=== PATIENT | female | born 1935 | race Caucasian/White ===

== ENCOUNTER → 2016-07-21 | Outpatient (CLI) | payer MEDICARE ==
--- NOTE | 2016-07-21 11:03 | CT ---
EXAMINATION TYPE: CT brain wo con DATE OF EXAM: 07/21/2016 10:55 AM COMPARISON: Previous study dated 09/28/2014 HISTORY: Lt side weakness and frequent falls CT DLP: 981.7 mGycm Automated exposure control for dose reduction was used. FINDINGS: There are generalized changes of sulcal prominence and ventriculomegaly, compatible with mild atrophi c change. There is some physiologic calcification of basal ganglia. There is diffuse periventricular white matter lucency, compatible with chronic white matter ischemic change. There is no acute focal l esion, mass effect or midline shift identified. I do not see evidence of intracranial blood. 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 Visualized portions of the paranasal sinuses and mastoids are clear. IMPRESSION: 1. NO ACUTE INTRACRANIAL ABNORMALITY. 2. MILD ATROPHIC CHANGE. 3. CHRONIC WHITE MATTER ISCHEMIC CHANGE. 4. 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
== END | disposition home or self-care (01) ==
LOC: RADCTMAIN 10:18
PROVIDERS: ATTEND Family Medicine
DX: D16.4 Benign neoplasm of bones of skull and face (principal); I67.82 Cerebral ischemia; G31.9 Degenerative disease of nervous system, unspecified
CPT/HCPCS: 70450

== ENCOUNTER 2016-08-10 06:34 | Day surgery (SDC) | payer MEDICARE ==
[2016-08-08 14:22] VITALS: BMI 41.1
[~2016-08-10 06:34] MED LIST: LACTATED RINGERS 1,000 ML IV SCH
[2016-08-10 07:17] VITALS: RESP 18; TEMP 98.5
[2016-08-10 07:19] LABS: Glucose,Whole Blood 154 mg/dL (75-99)
[2016-08-10] MEDS ORDERED: MIDAZOLAM 2 MG/2 ML VIAL ONE (07:21)
[2016-08-10] MEDS ORDERED: fentaNYL (PF) 50 MCG/ML 2 ML AMP ONE (07:21)
[2016-08-10] MEDS ORDERED: BUPIVACAINE (PF) 0.5% 30 ML VIAL ONE (07:21)
--- NOTE | 2016-08-10 08:02 | P.PCN ---
Date of Procedure: 08/10/16 Procedure(s) Performed: PREOPERATIVE DIAGNOSIS: Cervical Spondylosis with Facet Arthropathy.without myelopathy. 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 Cervical degenerative disc disease POSTOPERATIVE DIAGNOSIS: Same as preoperative diagnoses PROCEDURES: Diagnostic bilateral medial branch blocks at C2 and C3 levels with fluoroscopic guidance ANESTHESIA: Local with 1% lidocaine 4 ml ; IV sedation with Versed.1 mg and fentanyl 100 g EBL: Minimal PROCEDURE INDICATION: The patient with neck pain secondary to cervical arthropathy unresponsive to more conservative treatments. PROCEDURE DESCRIPTION / TECHNIQUE: The patient was seen and identified in the preoperative area. Risks, benefits, complications, and alternatives were discussed with the patient, the patient agreed to proceed with the procedure and signed the consent. IV was started. Vital signs remained stable throughout the procedure. Patient was taken to the OR and time out was completed. The patient was placed in the prone position on the procedure table. A pillow was placed under the patients chest to increase the cervical interlaminar space. The cervical area was prepped and draped in the usual sterile fashion. Critical pause was taken. Vital signs were closely monitored during the procedure. Conscious sedation was used during the procedure to decrease patients anxiety. Using cross-table lateral fluoroscopy, the centroid of the trapezoid of right C2 and C3 was identified, marked, and localized with 1% lidocaine 1 ml at each level for skin and Sub Q infiltrations . Subsequently, a 22 G 2 spinal needle was advanced guided by fluoroscopy to the centroid of the trapezoid of Right C2 , C3, . Ignacio tip position was confirmed at the centroid of the trapezoids of Right C2 and C3 with anteroposterior fluoroscopy. Subsequently, 1 ml of preservative-free Bupivacaine 0.5% mixed with Dexamethasone 5 mg and half ml of the mixture was injected after negative aspiration for blood and CSF. Ignacio was then removed intact the same procedure was repeated at the left C2 and C3 levels. COMPLICATIONS: No acute complications. COMMENTS: DISPOSITION / PLANS: The patient was placed in a supine position and transferred to the recovery area in a stable condition for observation and was discharged from the recovery room after meeting discharge criteria. Home discharge instructions given to the patient by the staff. The patient was reexamined prior to discharge. The patient will schedule a follow up in the clinic in 2-4 weeks.
[2016-08-10] MEDS ORDERED: IV FLUID CONTINUATION 1,000 ML IV ONE (08:09)
[2016-08-10 08:25] VITALS: BP 154/78; PULSE 91
[2016-08-10 08:30] LABS: Glucose,Whole Blood 155 mg/dL (75-99)
--- NOTE | 2016-08-10 08:56 | FL ---
EXAMINATION TYPE: FL guided pain mgmt statistic DATE OF EXAM: 08/10/2016 8:04 AM HISTORY: Flouroscopy time 38 seconds of fluoroscopy provided. IMPRESSION: 1. Fluoroscopy time.
== END 2016-08-10 08:52 | disposition home or self-care (01) ==
LOC: ORPAIN 06:34
PROVIDERS: ATTEND Specialist
DX: M47.812 Spondylosis without myelopathy or radiculopathy, cervical region (principal); M46.92 Unspecified inflammatory spondylopathy, cervical region; M96.1 Postlaminectomy syndrome, not elsewhere classified; M50.30 Other cervical disc degeneration, unspecified cervical region; Z88.0 Allergy status to penicillin
CPT/HCPCS: 64490; 64491; 99152; J2250; J3010

== ENCOUNTER 2016-09-19 09:27 | Day surgery (SDC) | payer MEDICARE ==
[2016-09-18 09:04] VITALS: BMI 42.5
[2016-09-19 09:52] VITALS: RESP 16; TEMP 98.3
[2016-09-19] MEDS ORDERED: LIDOCAINE 1% 20 ML VIAL (10MG/ML) FOR IV START INTRADERMA ONE (10:11)
[2016-09-19 10:17] LABS: Glucose,Whole Blood 159 mg/dL (75-99)
[2016-09-19] MEDS ORDERED: BUPIVACAINE (PF) 0.5% 30 ML VIAL ONE (10:40)
[2016-09-19] MEDS ORDERED: MIDAZOLAM 2 MG/2 ML VIAL ONE (10:40)
[2016-09-19] MEDS ORDERED: fentaNYL (PF) 50 MCG/ML 2 ML AMP ONE (10:40)
--- NOTE | 2016-09-19 11:26 | P.PCN ---
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 3-failed back surgery syndrome and cervical area POSTOPERATIVE DIAGNOSIS: Same as preoperative diagnoses. PROCEDURES: Diagnostic bilateral C2 , C3 medial branch blocks, with fluoroscopic guidance # 2nd ANESTHESIA: Local with 1% lidocaine 4 ml ; IV sedation with Versed 1 mg and fentanyl 50 g. EBL: Minimal PROCEDURE INDICATION: The patient with neck pain secondary to cervical arthropathy unresponsive to more conservative treatments. PROCEDURE DESCRIPTION / TECHNIQUE: The patient was seen and identified in the preoperative area. Risks, benefits, complications, and alternatives were discussed with the patient, the patient agreed to proceed with the procedure and signed the consent. IV was started. Vital signs remained stable throughout the procedure. Patient was taken to the OR and time out was completed. The patient was placed in the prone position on the procedure table. A pillow was placed under the patients chest to increase the cervical interlaminar space. The cervical area was prepped and draped in the usual sterile fashion. Critical pause was taken. Vital signs were closely monitored during the procedure. Conscious sedation was used during the procedure to decrease patients anxiety. Using cross-table lateral fluoroscopy, the centroid of the trapezoid of right C2 ,C3 was identified, marked, and localized with 1% lidocaine 1 ml at each level for skin and Sub Q infiltrations . Subsequently, a 22 G 2 spinal needle was advanced guided by fluoroscopy to the centroid of the trapezoid of Right C2, C3. Bradshaw tip position was confirmed at the centroid of the trapezoids of Right C2 , C3 with anteroposterior fluoroscopy. Subsequently, 1 ml of preservative-free Bupivacaine 0.5% mixed with Dexamethasone 10 mg and half ml of the mixture was injected after negative aspiration for blood and CSF. Bradshaw was then removed intact the same procedure was repeated at the left C2 , C3 levels. COMPLICATIONS: No acute complications. COMMENTS: DISPOSITION / PLANS: The patient was placed in a supine position and transferred to the recovery area in a stable condition for observation and was discharged from the recovery room after meeting discharge criteria. Home discharge instructions given to the patient by the staff. The patient was reexamined prior to discharge. The patient will schedule a follow up in the clinic in 2-4 weeks.
--- NOTE | 2016-09-19 11:34 | FL ---
EXAMINATION TYPE: FL guided pain mgmt statistic DATE OF EXAM: 09/19/2016 11:29 AM HISTORY: Flouroscopy time 34 seconds of fluoroscopy provided. IMPRESSION: 1. Fluoroscopy time.
[2016-09-19 11:56] VITALS: BP 144/79; PULSE 89
[2016-09-19] MEDS ORDERED: IV FLUID CONTINUATION 1,000 ML IV ONE (11:59)
[2016-09-19 12:10] LABS: Glucose,Whole Blood 133 mg/dL (75-99)
== END 2016-09-19 12:14 | disposition home or self-care (01) ==
LOC: ORPAIN 09:27
PROVIDERS: ATTEND Specialist
DX: M47.812 Spondylosis without myelopathy or radiculopathy, cervical region (principal); M46.92 Unspecified inflammatory spondylopathy, cervical region; M50.30 Other cervical disc degeneration, unspecified cervical region; M96.1 Postlaminectomy syndrome, not elsewhere classified; Z88.0 Allergy status to penicillin
CPT/HCPCS: 64490; 64491; 99152; J2250; J3010

== ENCOUNTER 2016-10-26 07:17 | Day surgery (SDC) | payer MEDICARE ==
[2016-10-24 12:02] VITALS: BMI 42.8
[2016-10-26 08:02] VITALS: RESP 18; TEMP 97.9
[2016-10-26 08:20] LABS: Glucose,Whole Blood 166 mg/dL (75-99)
[2016-10-26] MEDS ORDERED: BUPIVACAINE (PF) 0.5% 30 ML VIAL ONE (08:58)
[2016-10-26] MEDS ORDERED: fentaNYL (PF) 50 MCG/ML 2 ML AMP ONE (08:58)
[2016-10-26] MEDS ORDERED: MIDAZOLAM 2 MG/2 ML VIAL ONE (08:58)
[2016-10-26] MEDS ORDERED: TRIAMCINOLONE ACETONIDE 40 MG/ML 1 ML VIAL ONE (08:58)
[2016-10-26] MEDS ORDERED: LIDOCAINE 1% 20 ML VIAL (10MG/ML) FOR IV START INTRADERMA ONE (08:58)
--- NOTE | 2016-10-26 09:42 | P.PCN ---
Date of Procedure: 10/26/16 Procedure(s) Performed: PREOPERATIVE DIAGNOSIS:1- Cervical spondylosis with Facet Arthropathy without myelopathy. 2-postlaminectomy pain syndrome cervical area. 3-cervical degenerative disc disease POSTOPERATIVE DIAGNOSIS: Same as preoperative diagnoses PROCEDURES: Radiofrequency thermocoagulation, Left C2 , and C3 medial branch with Fluroscopy Guidence ( two levels ) ANESTHESIA: Local with 1% lidocaine 2 ml ; IV sedation with fentanyl 100 mcg and Versed 2 mg . EBL: Minimal PROCEDURE INDICATION: The patient with neck pain secondary to cervical arthropathy who had more than 50% relief of her pain with previous diagnostic cervical medial branch block. PROCEDURE DESCRIPTION / TECHNIQUE: The patient was seen and identified in the preoperative area. Risks, benefits, complications, and alternatives were discussed with the patient, the patient agreed to proceed with the procedure and signed the consent. IV was started. Vital signs remained stable throughout the procedure. Patient was taken to the OR and time out was completed. The patient was placed in the prone position on the procedure table. A pillow was placed under the patients chest to increase the cervical interlaminar space. The cervical area was prepped and draped in the usual sterile fashion. Critical pause was taken. Vital signs were closely monitored during the procedure. Conscious sedation was used during the procedure to decrease patients anxiety. Using cross-table lateral fluoroscopy, the centroid of the trapezoid of Left C2 ,C3, were identified, marked, and localized with 1% lidocaine. Subsequently, a 20 [id number] radiofrequency cannula with a 10-mm active tip was advanced guided by fluoroscopy to the centroid of the trapezoid of Left C2 ,C3,. Needle tip position was confirmed at the centroid of the trapezoids of Left C2 C3, with anteroposterior fluoroscopy. Each site then underwent sensory testing at 50 Hz and 0 to 1 volt and motor testing at 2 Hz and 0 to 3 volt with local stimulation, but no radicular symptoms down the arm. Thereafter Left C2 ,C3 sites underwent radiofrequency thermocoagulation at 80 degrees celsius for 90 seconds after injecting 0.5 ml of PF lidocaine 1%. After thermocoagulation, 1 ml of the block solution containing Kenalog 40 mg and 5 mL of preservative-free normal saline was injected at the Left C2 ,andC3 levels after negative aspiration of CSF and blood and with no paresthesias. Cannulas were retracted while injecting lidocaine 1% until the needle is out. Skin was cleansed and bandages were applied. COMPLICATIONS: No acute complications. COMMENTS: DISPOSITION / PLANS: The patient was placed in a supine position and transferred to the recovery area in a stable condition for observation and was discharged from the recovery room after meeting discharge criteria. Home discharge instructions given to the patient by the staff. The patient was reexamined prior to discharge. The patient will schedule a follow up in the clinic in 2-4 weeks.
[2016-10-26] MEDS ORDERED: IV FLUID CONTINUATION 1,000 ML IV ONE (09:44)
[2016-10-26 10:00] VITALS: BP 120/68; PULSE 68
--- NOTE | 2016-10-26 10:15 | FL ---
EXAMINATION TYPE: FL guided pain mgmt statistic DATE OF EXAM: 10/26/2016 9:36 AM HISTORY: Flouroscopy time 29 seconds of fluoroscopy provided. IMPRESSION: 1. Fluoroscopy time.
== END 2016-10-26 10:17 | disposition home or self-care (01) ==
LOC: ORPAIN 07:17
PROVIDERS: ATTEND Specialist
DX: M47.812 Spondylosis without myelopathy or radiculopathy, cervical region (principal); M46.92 Unspecified inflammatory spondylopathy, cervical region; M96.1 Postlaminectomy syndrome, not elsewhere classified; M50.30 Other cervical disc degeneration, unspecified cervical region; Z88.0 Allergy status to penicillin
CPT/HCPCS: 99152; 64633; 64634; J2250; J3301; J3010

== ENCOUNTER 2016-12-05 07:35 | Day surgery (SDC) | payer MEDICARE ==
[2016-11-29 15:23] VITALS: BMI 41.6
[2016-12-05 08:13] VITALS: RESP 16; TEMP 96.4
[2016-12-05] MEDS ORDERED: LIDOCAINE 1% 20 ML VIAL (10MG/ML) FOR IV START INTRADERMA ONE (08:14)
[2016-12-05 08:15] LABS: Glucose,Whole Blood 124 mg/dL (75-99)
[2016-12-05] MEDS ORDERED: MIDAZOLAM 2 MG/2 ML VIAL ONE (08:41)
[2016-12-05] MEDS ORDERED: fentaNYL (PF) 50 MCG/ML 2 ML AMP ONE (08:41)
[2016-12-05] MEDS ORDERED: DEXAMETHASONE SOD PHOS (MDV) 100 MG/10 ML VIAL ONE (08:41)
[2016-12-05] MEDS ORDERED: BUPIVACAINE (PF) 0.5% 30 ML VIAL ONE (08:41)
--- NOTE | 2016-12-05 09:17 | P.PCN ---
Date of Procedure: 12/05/16 Preoperative Diagnosis: Postoperative Diagnosis: Procedure(s) Performed: PREOPERATIVE DIAGNOSIS: 1-Cervical spondylosis with Facet Arthropathy without myelopathy. 2-cervical degenerative disc disease POSTOPERATIVE DIAGNOSIS :1-: Cervical spondylosis with Facet Arthropathy without myelopathy. 2-cervical degenerative disc disease PROCEDURES: Radiofrequency thermocoagulation, Right C 2 , C3, medial branch with Fluroscopy Guidence ( Two Levels ) ANESTHESIA: Local with 1% lidocaine 4 ml ; IV sedation with fentanyl 50 mcg and Versed. 1mg . EBL: Minimal PROCEDURE INDICATION: The patient with neck pain secondary to cervical arthropathy who had more than 50% relief of her pain with previous diagnostic cervical medial branch block. PROCEDURE DESCRIPTION / TECHNIQUE: The patient was seen and identified in the preoperative area. Risks, benefits, complications, and alternatives were discussed with the patient, the patient agreed to proceed with the procedure and signed the consent. IV was started. Vital signs remained stable throughout the procedure. Patient was taken to the OR and time out was completed. The patient was placed in the prone position on the procedure table. A pillow was placed under the patients chest to increase the cervical interlaminar space. The cervical area was prepped and draped in the usual sterile fashion. Critical pause was taken. Vital signs were closely monitored during the procedure. Conscious sedation was used during the procedure to decrease patients anxiety. Using cross-table lateral fluoroscopy, the centroid of the trapezoid of right C2 ,C3 were identified, marked, and localized with 1% lidocaine. Subsequently, a 20 [id number] radiofrequency cannula with a 10-mm active tip was advanced guided by fluoroscopy to the centroid of the trapezoid of Right C2 ,C3, . Needle tip position was confirmed at the centroid of the trapezoids of Right C2 ,C3, with anteroposterior fluoroscopy. Each site then underwent sensory testing at 50 Hz and 0 to 1 volt and motor testing at 2 Hz and 0 to 3 volt with local stimulation, but no radicular symptoms down the arm. Thereafter the right C2 , C3 sites underwent radiofrequency thermocoagulation at 80 degrees celsius for 90 seconds after injecting 0.5 ml of PF lidocaine 1%. After thermocoagulation, 1 ml of the block solution containing Dexamethasone 10 mg and 2 mL of preservative-free 0.5 % marcaine was injected at the Right C2 ,C3, levels after negative aspiration of CSF and blood and with no paresthesias. Cannulas were retracted while injecting lidocaine 1% until the needle is out. Skin was cleansed and bandages were applied. COMPLICATIONS: No acute complications. COMMENTS: DISPOSITION / PLANS: The patient was placed in a supine position and transferred to the recovery area in a stable condition for observation and was discharged from the recovery room after meeting discharge criteria. Home discharge instructions given to the patient by the staff. The patient was reexamined prior to discharge. The patient will schedule a follow up in the clinic in 2-4 weeks. Implants: Indications for Procedure: Operative Findings: Description of Procedure:
--- NOTE | 2016-12-05 09:29 | FL ---
Fluoroscopy HISTORY: Pain 9 seconds fluoroscopy time supplied to the referring clinician. 2 intraoperative C-arm images docume nt the procedure. See dictated report from anesthesia.
[2016-12-05 09:47] VITALS: BP 150/85; PULSE 70
[2016-12-05] MEDS ORDERED: IV FLUID CONTINUATION 1,000 ML IV ONE (09:48)
== END 2016-12-05 09:58 | disposition home or self-care (01) ==
LOC: ORPAIN 07:35
PROVIDERS: ATTEND Specialist
DX: M50.31 Other cervical disc degeneration, high cervical region (principal); M47.812 Spondylosis without myelopathy or radiculopathy, cervical region; M46.92 Unspecified inflammatory spondylopathy, cervical region; Z88.0 Allergy status to penicillin
CPT/HCPCS: 64633; 64634; 99152; 99153; J2250; J3010; J1100

== ENCOUNTER → 2017-01-09 | Outpatient (CLI) | payer MEDICARE ==
[2017-01-09 14:02] VITALS: BP 142/59; PULSE 73; RESP 20; TEMP 98.7
--- NOTE | 2017-01-09 14:23 | P.PN ---
Progress Note - Text Patient returns for followup for chronic neck and back pain with radiation to shoulders, hips, and legs. Patient recently underwent bilateral C2 + C3 RFA, which has provided almost complete relief of her neck pain since procedure performed. Patient continues on [place] medications for pain from PCP with good relief. Patient denies adverse drug effects from medications. Today, pt denies new-onset weakness, bowel/bladder incontinence, or any other signs or symptoms of cauda equina syndrome. There are no signs of acute intoxication, and no indications of medication diversion or overuse. In addition to above, 13-point review of systems is also negative for chest pain , shortness of breath, changes in vision, changes in hearing, new onset weakness , abdominal pain, diarrhea, extreme fatigue, malaise, fever, skin changes, homicidal or suicidal ideation, or bowel or bladder incontinence. 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 There is a broad-based circumferential disc bulge at the L3-L4 level extending laterally encroaching on the right neural foramen. At the L2-L3 level there is facet arthropathy with hypertrophy of the ligamentum flavum and causing posterior lateral mass effect on the thecal sac. There is facet arthropathy at the L1-L2 level and also at the L5-S1 level. Assessment: 1. lumbar PLPS 2. cervical spondylosis without myelopathy 3. SI joint dysfunction Plan: 1. Explanation: Opioid and psychological risk scores were reviewed. Diagnoses , prognoses, and multiple treatment options including but not limited to physical therapy, interventional therapies, adjuvant medical therapies, narcotic medication therapies, and surgery were discussed with the patient and all questions were answered to the patient's satisfaction. 2. Opioid agreement: no opioids prescribed today 3. Counseling: The patient was counseled extensively on SMOKING CESSATION, BODY MASS INDEX, EXERCISE. Specifically, the patient was instructed regarding the importance of smoking cessation, weight control, and exercise in the context of both chronic pain and overall health. 4. Procedures: bilateral lumbar MBB (consider higher levels such as L1-L2, L2- L3, L3-L4 bilateral) 5. Consultations: None 6. Investigations: None 7. Medications: none prescribed 8. Disposition: f/u for PQRS measures: 1-Patient's medications are documented in the chart. 2-Tobacco use is negative 3-Patient has not had a pneumococcal vaccine. 4-Advanced care planning discussed, patient unable to give. 5-Opioid contract NOT signed with the patient. 6-Pain positive, follow-up visit or procedure scheduled 7-Patient's blood pressure measured and documented, and patient will follow up with the primary care due to hypertension. 8-Patient's weight was measured, and body mass index ABOVE the normal limits, and counseling was done. Patient instructed to follow up with PCP. 9-Patient WAS NOT identified as an unhealthy alcohol user.
== END | disposition home or self-care (01) ==
LOC: PNWHC3 13:41
PROVIDERS: ATTEND Anesthesiology
DX: M47.812 Spondylosis without myelopathy or radiculopathy, cervical region (principal); G97.1 Other reaction to spinal and lumbar puncture; M53.3 Sacrococcygeal disorders, not elsewhere classified
CPT/HCPCS: 99211

== ENCOUNTER 2017-02-04 15:20 | Inpatient (IN) | payer MEDICARE ==
[2017-02-04] MEDS ORDERED: ACETAMINOPHEN TAB 500 MG TAB PO STA (15:40)
--- NOTE | 2017-02-04 15:44 | ED ---
General Adult HPI - General Chief complaint: Weakness Stated complaint: Weakness Time Seen by Provider: 02/04/17 15:33 Source: patient, family, EMS, RN notes reviewed Mode of arrival: EMS Limitations: altered mental status - History of Present Illness Initial comments: Patient is a pleasant 81-year-old female presenting with family for weakness. Onset was today. Patient was too weak to get up out of bed. Patient is unable to stand on her own. Patient is unable to walk. Patient did have 2 falls without injury. Patient does complain of chills. Daughter states patient seems slightly off today. Daughter also states patient did have a recent questionable urinary tract infection however did not receive treatment for this. No abdominal pain. Minimal cough. No chest pain. - Related Data Home Medications Medication Instructions Recorded Confirmed Ezetimibe [Zetia] 10 mg PO DAILY 11/14/13 02/04/17 Furosemide [Lasix] 40 mg PO DAILY 11/14/13 02/04/17 Gabapentin [Neurontin] 300 mg PO QAM 11/14/13 02/04/17 Metoprolol Tartrate [Lopressor] 25 mg PO BID 11/14/13 02/04/17 Potassium Chloride [K-Tab ER] 10 meq PO HS 11/14/13 02/04/17 glipiZIDE [Glucotrol] 20 mg PO BID 11/14/13 02/04/17 metFORMIN HCL 1,000 mg PO BID 11/14/13 02/04/17 Nitroglycerin Sl Tabs [Nitrostat] 0.4 mg SUBLINGUAL Q5M PRN 07/20/15 02/04/17 sitaGLIPtin PHOSPHATE [Januvia] 100 mg PO DAILY 07/20/15 02/04/17 Cyanocobalamin [Vitamin B-12 1,000 mcg SQ Q28D 07/29/15 02/04/17 Injection] Albuterol Sulfate [Proventil Hfa] 2 puff INHALATION RT-Q4H PRN 06/05/16 02/04/17 Beclomethasone Dip 80 Mcg/Puff 2 puff INHALATION RT-BID 06/05/16 02/04/17 [Qvar] HYDROcodone/APAP 5-325MG [Central 1 tab PO Q6HR PRN 06/13/16 02/04/17 5-325] Amitriptyline HCl [Elavil] 50 mg PO HS 02/04/17 02/04/17 Gabapentin 600 mg PO HS 02/04/17 02/04/17 Lisinopril [Zestril] 5 mg PO BID 02/04/17 02/04/17 Previous Rx's Medication Instructions Recorded Atorvastatin Calcium [Lipitor] 40 mg PO HS #1 tab 08/04/15 Allergies Allergy/AdvReac Type Severity Reaction Status Date / Time Penicillins Allergy Rash/Hives Verified 02/04/17 15:37 Review of Systems ROS Statement: Those systems with pertinent positive or pertinent negative responses have been documented in the HPI. ROS Other: All systems not noted in ROS Statement are negative. Constitutional: Reports: chills Eyes: Denies: eye pain ENT: Denies: ear pain Respiratory: Reports: cough. Denies: dyspnea Cardiovascular: Denies: chest pain Endocrine: Reports: fatigue Gastrointestinal: Denies: abdominal pain Genitourinary: Reports: dysuria Musculoskeletal: Reports: back pain (Chronic and unchanged) Skin: Denies: rash Neurological: Reports: weakness. Denies: headache Past Medical History Past Medical History: Chest Pain / Angina, Diabetes Mellitus, GERD/Reflux, Hyperlipidemia, Hypertension, Osteoarthritis (OA) Additional Past Medical History / Comment(s): NIDDM, SOB W/ ACTIVITY, HIATAL HERNIA, arrhythmia, R ankle fx in the past, uses cane or walker History of Any Multi-Drug Resistant Organisms: None Reported Past Surgical History: Back Surgery, Joint Replacement, Orthopedic Surgery Additional Past Surgical History / Comment(s): 07/29/15 lumbar laminectomy decompression fusion L3-4 and L5-S1 with cell saver, lumbar instrumentation removal L4-5, ZULY KNEE REPLACEMENTS,ORIF RT ANKLE,L4-5 LAMINECTOMY, NECK FUSION , PAIN CLINIC, cataracts, zuly rotator cuff repair, surgery to zuly wrist, pain procedures. Past Anesthesia/Blood Transfusion Reactions: No Reported Reaction Additional Past Anesthesia/Blood Transfusion Reaction / Comment(s): Pt states she has never received blood. Past Psychological History: No Psychological Hx Reported Smoking Status: Former smoker Past Alcohol Use History: None Reported Past Drug Use History: None Reported - Past Family History Father Brother(s) Family Medical History: Cancer Mother Sister(s) Family Medical History: Cancer Father Family Medical History: Myocardial Infarction ([place]) Additional Family Medical History / Comment(s): Father at 40 of a [place]. Mother Family Medical History: CVA/TIA Additional Family Medical History / Comment(s): Mother had a CVA General Exam Limitations: altered mental status General appearance: alert, in no apparent distress Head exam: Present: atraumatic Eye exam: Present: normal appearance, PERRL ENT exam: Present: normal oropharynx Neck exam: Present: normal inspection. Absent: tenderness Respiratory exam: Present: normal lung sounds bilaterally Cardiovascular Exam: Present: tachycardia GI/Abdominal exam: Present: soft. Absent: tenderness Extremities exam: Present: normal inspection. Absent: calf tenderness Neurological exam: Present: alert, oriented X3, CN II-XII intact Expanded Patient oriented to: Present: person, place, time Speech: Present: fluid speech Motor strength exam: RUE: 5, LUE: 5, RLE: 4, LLE: 4 Eye Response: (4) open spontaneously Motor Response: (6) obeys commands Verbal Response: (5) oriented Psychiatric exam: Present: normal affect, normal mood Course Vital Signs 02/04/17 02/04/17 02/04/17 15:31 15:54 16:10 Temperature 104.4 F H Pulse Rate 111 H 103 H 96 Respiratory 22 18 18 Rate Blood Pressure 103/56 86/48 117/58 O2 Sat by Pulse 89 L 96 97 Oximetry - Reevaluation(s) Reevaluation #1: 02/04/17 16:39 Patient does meet criteria for septic shock secondary to the low blood pressure reading. Diagnosed at 1637. Fluid bolus has been ordered. IV antibiotics will be ordered. Blood cultures and lactic acid have been drawn. 02/04/17 16:40 Patient reevaluated. Patient and family were updated regarding results and plan. 02/04/17 16:[address] cuello, who will admit for Dr. Guzman. EKG Findings - EKG Comments: EKG Findings:: Sinus tachycardia 111. [place] 142. QRS 82. QT 304. QTC 413. Normal axis. Normal QRS. Nonspecific ST-T. Procedures - Sepsis Sepsis Focused Exam #1 Time Sepsis Criteria Met: 16:37 Sepsis Focused Exam Date: 02/04/17 Sepsis Focused Exam Time: 16:37 Sepsis Focused Exam Complete: Yes Vital Signs & RN Notes Reviewed: Yes Capillary Refill: < 2 Seconds: Fingers, Toes Peripheral Pulses: Normal: Radial (R), Radial (L), Dorsalis Pedis (R), Dorsalis Pedis (L) Skin Color: Normal for Patient Respiratory Exam: normal lung sounds Cardiovascular Exam: regular rate, normal rhythm Medical Decision Making - Lab Data Result diagrams: 02/04/17 15:43 02/04/17 15:43 Lab Results 02/04/17 02/04/17 02/04/17 Range/Units 15:43 15:43 15:43 WBC 24.7 H (3.8-10.6) k/uL RBC 4.01 (3.80-5.40) m/uL Hgb 11.4 (11.4-16.0) gm/dL Hct 34.4 (34.0-46.0) % MCV 86.0 (80.0-100.0) fL MCH 28.4 (25.0-35.0) pg MCHC 33.0 (31.0-37.0) g/dL RDW 14.0 (11.5-15.5) % Plt Count 379 (150-450) k/uL Neutrophils % 84 % Lymphocytes % 8 % Monocytes % 6 % Eosinophils % 0 % Basophils % 0 % Neutrophils # 20.7 H (1.3-7.7) k/uL Lymphocytes # 2.1 (1.0-4.8) k/uL Monocytes # 1.5 H (0-1.0) k/uL Eosinophils # 0.0 (0-0.7) k/uL Basophils # 0.1 (0-0.2) k/uL PT (9.0-12.0) sec INR (<1.2) APTT (22.0-30.0) sec Sodium 137 (137-145) mmol/L Potassium 5.2 H (3.5-5.1) mmol/L Chloride 99 (98-107) mmol/L Carbon Dioxide 24 (22-30) mmol/L Anion Gap 14 mmol/L BUN 35 H (7-17) mg/dL Creatinine 1.30 H (0.52-1.04) mg/dL Est GFR (MDRD) Af Amer 48 (>60 ml/min/1.73 sqM) Est GFR (MDRD) Non-Af 40 (>60 ml/min/1.73 sqM) Glucose 210 H (74-99) mg/dL Plasma Lactic Acid Russel 2.5 H* (0.7-2.0) mmol/L Calcium 8.8 (8.4-10.2) mg/dL Total Bilirubin 0.6 (0.2-1.3) mg/dL AST 25 (14-36) U/L ALT 28 (9-52) U/L Alkaline Phosphatase 102 (38-126) U/L Total Protein 7.0 (6.3-8.2) g/dL Albumin 3.8 (3.5-5.0) g/dL Urine Color Urine Appearance (Clear) Urine pH (5.0-8.0) Ur Specific [place] (1.001-1.035) Urine Protein (Negative) Urine Glucose (UA) (Negative) Urine Ketones (Negative) Urine Blood (Negative) Urine Nitrite (Negative) Urine Bilirubin (Negative) Urine Urobilinogen (<2.0) mg/dL Ur Leukocyte Esterase (Negative) Urine RBC (0-5) /hpf Urine WBC (0-5) /hpf Urine Bacteria (None) /hpf Hyaline Casts (0-2) /lpf Urine Mucus (None) /hpf 02/04/17 02/04/17 Range/Units 15:43 16:10 WBC (3.8-10.6) k/uL RBC (3.80-5.40) m/uL Hgb (11.4-16.0) gm/dL Hct (34.0-46.0) % MCV (80.0-100.0) fL MCH (25.0-35.0) pg MCHC (31.0-37.0) g/dL RDW (11.5-15.5) % Plt Count (150-450) k/uL Neutrophils % % Lymphocytes % % Monocytes % % Eosinophils % % Basophils % % Neutrophils # (1.3-7.7) k/uL Lymphocytes # (1.0-4.8) k/uL Monocytes # (0-1.0) k/uL Eosinophils # (0-0.7) k/uL Basophils # (0-0.2) k/uL PT 11.1 (9.0-12.0) sec INR 1.1 (<1.2) APTT 25.0 (22.0-30.0) sec Sodium (137-145) mmol/L Potassium (3.5-5.1) mmol/L Chloride (98-107) mmol/L Carbon Dioxide (22-30) mmol/L Anion Gap mmol/L BUN (7-17) mg/dL Creatinine (0.52-1.04) mg/dL Est GFR (MDRD) Af Amer (>60 ml/min/1.73 sqM) Est GFR (MDRD) Non-Af (>60 ml/min/1.73 sqM) Glucose (74-99) mg/dL Plasma Lactic Acid Russel (0.7-2.0) mmol/L Calcium (8.4-10.2) mg/dL Total Bilirubin (0.2-1.3) mg/dL AST (14-36) U/L ALT (9-52) U/L Alkaline Phosphatase (38-126) U/L Total Protein (6.3-8.2) g/dL Albumin (3.5-5.0) g/dL Urine Color Yellow Urine Appearance Cloudy H (Clear) Urine pH 7.5 (5.0-8.0) Ur Specific [place] 1.010 (1.001-1.035) Urine Protein Trace H (Negative) Urine Glucose (UA) Negative (Negative) Urine Ketones Negative (Negative) Urine Blood Negative (Negative) Urine Nitrite Negative (Negative) Urine Bilirubin Negative (Negative) Urine Urobilinogen <2.0 (<2.0) mg/dL Ur Leukocyte Esterase Moderate H (Negative) Urine RBC 1 (0-5) /hpf Urine WBC 8 H (0-5) /hpf Urine Bacteria Many H (None) /hpf Hyaline Casts 7 H (0-2) /lpf Urine Mucus Few H (None) /hpf - Radiology Data Radiology results: image reviewed (Chest x-ray suspicious for right middle lobe infiltrate) Critical Care Time Critical Care Time: Yes Total Critical Care Time: 35 Disposition Clinical Impression: Septic shock, Urinary tract infection, Pneumonia Disposition: ADMITTED IP TO THIS [facility] Condition: Serious Referrals: Prashant Guzman MD [Primary Care Provider] - 1-2 days Decision Time: 16:43
[2017-02-04] MEDS: SODIUM CHLORIDE 0.9% 500 ML IV SCH ×2 (15:47→16:22)
[2017-02-04 15:56] LABS: Basophils # (A) 0.1 k/uL (0-0.2); Basophils % (A) 0 %; CH 27.4; Eosinophils % (A) 0 %; HCT 34.4 % (34.0-46.0); HDW 2.58; HGB 11.4 gm/dL (11.4-16.0); Luc # (Auto) 0.35; Luc % (Auto) 1; Lymphocytes # (A) 2.1 k/uL (1.0-4.8); Lymphocytes % (A) 8 %; MCH 28.4 pg (25.0-35.0); Mean Platelet Volume 6.9; Monocytes # (A) 1.5 k/uL (0-1.0); Monocytes % (A) 6 %; Neutrophils # (A) 20.7 k/uL (1.3-7.7); Neutrophils % (A) 84 %; RBC 4.01 m/uL (3.80-5.40); WBC 24.7 k/uL (3.8-10.6); WBC (Perox) 25.14
[2017-02-04 16:00] LABS: INR 1.1 (<1.2); Prothrombin Time 11.1 sec (9.0-12.0)
[2017-02-04] MEDS ORDERED: SODIUM CHLORIDE 0.9% 1,000 ML IV STA ×2 (16:08→16:21)
[2017-02-04 16:19] LABS: Calcium 8.8 mg/dL (8.4-10.2); Potassium 5.2 mmol/L (3.5-5.1); Total Bilirubin 0.6 mg/dL (0.2-1.3)
[2017-02-04] MEDS ORDERED: SODIUM CHLORIDE 0.9% 500 ML IV STA (16:21)
[2017-02-04] MEDS ORDERED: SODIUM CHLORIDE 0.9% 250 ML IV STA (16:21)
[2017-02-04 16:33] LABS: Appearance,Urine Cloudy (Clear); Bacteria,Urine Many /hpf; Bilirubin,Urine Negative (Negative); Glucose,Urine (UA) Negative (Negative); Ketones,Urine Negative (Negative); Leukocyte Esterase,Urine Moderate (Negative); Mucus,Urine Few /hpf; Nitrite,Urine Negative (Negative); PH, Urine 7.5 (5.0-8.0); Particle Count 220326; Protein,Urine Trace (Negative); RBC,Urine 1 /hpf (0-5); UA Billing (MACRO vs. MICRO) MICRO; Urobilinogen,Urine <2.0 mg/dL (<2.0); WBC,Urine 8 /hpf (0-5)
[2017-02-04] MEDS ORDERED: LEVOFLOXACIN 750MG-D5W PMX 750 MG in DEXTROSE/WATER 1 150ML.BAG IVPB STA (16:43)
--- NOTE | 2017-02-04 16:46 | XR ---
EXAMINATION TYPE: XR chest 2V DATE OF EXAM: 02/04/2017 COMPARISON: 07/30/2015 HISTORY: Weakness and fever TECHNIQUE: Frontal and lateral views of the chest are obtained. FINDINGS: There is mild linear density at the lung bases. There is no heart failure. Heart size is n ormal. Mediastinum is normal. There are chest leads. Bony thorax is intact. IMPRESSION: There is increasing atelectasis at the lung bases compared to last exam. There is possib le mild right lower lobe pneumonia.
[2017-02-04] MEDS ORDERED: PNEUMONIA PROTOCOL UTILIZED 1 EACH MISC PO PRN (16:49)
[2017-02-04] MEDS ORDERED: AZTREONAM 2 GM in SODIUM CHLORIDE 0.9% 100 ML IVPB STA (16:49)
[2017-02-04] MEDS ORDERED: IPRATROPIUM-ALBUTEROL 3 ML NEB INHALATION PRN (16:49)
[2017-02-04] MEDS: SODIUM CHLORIDE 0.9% 1,000 ML IV SCH (17:24)
[2017-02-04 19:13] LABS: Glucose,Whole Blood 198 mg/dL (75-99)
[2017-02-04 20:58] VITALS: BMI 42.5
[2017-02-04] MEDS: NOREPINEPHRIN 4 MG-0.9% NS PMX 4 MG/250 ML ML IV SCH (21:55)
[2017-02-04 22:40] LABS: Glucose,Whole Blood 129 mg/dL (75-99)
[2017-02-04] MEDS: AZTREONAM 1 GM in SODIUM CHLORIDE 0.9% 50 ML IVPB SCH (23:52)
[2017-02-04] MEDS: HEPARIN SODIUM,PORCINE 5,000 UNIT/ML 1 ML VIAL SQ SCH (23:53)
[2017-02-05 04:42] LABS: Basophils % (A) 0 %; CH 27.5; CHCM 31.2; Eosinophils % (A) 0 %; HCT 30.4 % (34.0-46.0); HDW 2.55; Hypochromasia Slight; Luc # (Auto) 0.35; Luc % (Auto) 2; Lymphocytes # (A) 3.3 k/uL (1.0-4.8); Lymphocytes % (A) 19 %; MCHC 31.6 g/dL (31.0-37.0); MCV 88.6 fL (80.0-100.0); Mean Platelet Volume 7.1; Monocytes # (A) 1.4 k/uL (0-1.0); Monocytes % (A) 8 %; Neutrophils # (A) 12.1 k/uL (1.3-7.7); Neutrophils % (A) 70 %; RBC 3.44 m/uL (3.80-5.40); RDW 14.3 % (11.5-15.5); WBC 17.1 k/uL (3.8-10.6); WBC (Perox) 18.22
[2017-02-05 04:47] LABS: HGB 9.6 gm/dL (11.4-16.0)
[2017-02-05 04:59] LABS: Anion Gap 11 mmol/L; Blood Urea Nitrogen 27 mg/dL (7-17); Calcium 7.5 mg/dL (8.4-10.2); Carbon Dioxide 19 mmol/L (22-30); Chloride 110 mmol/L (98-107); Glucose 147 mg/dL (74-99); Non-African American GFR(MDRD) 51 (>60 ml/min/1.73 sqM); Phosphorous 3.1 mg/dL (2.5-4.5); Sodium 140 mmol/L (137-145)
[2017-02-05 07:57] LABS: Glucose,Whole Blood 173 mg/dL (75-99)
[2017-02-05] MEDS: PANTOPRAZOLE 40 MG TABLET PO SCH (08:06)
[2017-02-05] MEDS: INSULIN LISPRO (humaLOG) 300 UNIT/3 ML VIAL SQ SCH ×4 (08:16→21:27)
[2017-02-05] MEDS: AZTREONAM 1 GM in SODIUM CHLORIDE 0.9% 50 ML IVPB SCH ×3 (09:19→23:40)
[2017-02-05] MEDS: HEPARIN SODIUM,PORCINE 5,000 UNIT/ML 1 ML VIAL SQ SCH ×3 (09:19→23:40)
[2017-02-05] MEDS: SODIUM CHLORIDE 0.9% 1,000 ML IV SCH ×2 (09:19→14:02)
[2017-02-05] MEDS: NOREPINEPHRIN 4 MG-0.9% NS PMX 4 MG/250 ML ML IV SCH (09:20)
--- NOTE | 2017-02-05 11:02 | P.CNPUL ---
History of Present Illness Consult date: 02/05/17 History of present illness: A 81-year-old female patient who presented yesterday to the emergency department for profound weakness. This started 24 hours prior to her presentation. The patient was too weak to get out of bed. She was unable to stand up on her own. She was unable to ambulate. She had to episodes of fall without any major skeletal injuries. She was complaining of chills. She was also told to have a urinary tract infection, although she did not receive any treatment. No nausea. No vomiting. No abdominal pain. No respiratory distress. No cough or sputum production. The white cell count was 17. The patient had no significant electrode disturbance of and some mild non-anion gap metabolic acidosis. Lactic acid level was at 2.5 at the time of admission. The patient received a total of 4 L of IV fluid. She arrived to the ICU hypotensive and at that point she was started on pressors and she required pressors for a total of 12 hours and this morning she is off pressors. She is doing well. She is conversing and is following commands and answering questions appropriately. Her urinalysis is showing 8 WBCs and many bacteria. Blood cultures of been sent and the results are still pending for now. She is on a combination of aztreonam and Levaquin for now. The initial chest x-ray from yesterday was nonspecific. Today's chest x-ray is revealing a right lower lobe pulmonary infiltrates. She is also complaining of foot pain and this may be attributed to the fall and x-rays have been sent. This is her left foot. Review of Systems Constitutional: Reports chills, Reports fatigue, Reports lethargy, Reports weakness Eyes: denies blurred vision, denies bulging eye, denies decreased vision Ears: deny: decreased hearing, ear discharge, earache Ears, nose, mouth and throat: Denies headache, Denies sore throat Cardiovascular: Reports decreased exercise tolerance, Reports shortness of breath Respiratory: Reports dyspnea Musculoskeletal: Reports frequent falls, Denies myalgias Musculoskeletal: left: ankle pain, ankle swelling, absent: ankle stiffness Integumentary: Denies pruritus, Denies rash Neurological: Reports weakness, Denies numbness Psychiatric: Denies anxiety, Denies depression Past Medical History Past Medical History: Chest Pain / Angina, Diabetes Mellitus, GERD/Reflux, Hyperlipidemia, Hypertension, Osteoarthritis (OA) Additional Past Medical History / Comment(s): NIDDM, acid reflux, hyperlipidemia , hypertension, osteoarthritis, previous history of right ankle fracture, the patient embolus with the help of a walker, chronic back pain with previous laminectomy and decompression involving the lumbosacral spine, hiatal hernia History of Any Multi-Drug Resistant Organisms: None Reported Past Surgical History: Back Surgery, Joint Replacement, Orthopedic Surgery Additional Past Surgical History / Comment(s): 07/29/15 lumbar laminectomy decompression fusion L3-4 and L5-S1 with cell saver, lumbar instrumentation removal L4-5, ZULY KNEE REPLACEMENTS,ORIF RT ANKLE,L4-5 LAMINECTOMY, NECK FUSION , PAIN CLINIC, cataracts, zuly rotator cuff repair, surgery to zuly wrist, pain procedures. Past Anesthesia/Blood Transfusion Reactions: No Reported Reaction Additional Past Anesthesia/Blood Transfusion Reaction / Comment(s): Pt states she has never received blood. Past Psychological History: No Psychological Hx Reported Additional Psychological History / Comment(s): Pt resides with her spouse. She uses a walker or cane to ambulate. She no longer drives but her spouse does. She has no home care. Smoking Status: Former smoker Past Alcohol Use History: None Reported Additional Past Alcohol Use History / Comment(s): QUIT SMOKING 1974, 12 YRS @ 1 2 PPD. Past Drug Use History: None Reported - Past Family History Father Brother(s) Family Medical History: Cancer Mother Sister(s) Family Medical History: Cancer Father Family Medical History: Myocardial Infarction ([place]) Additional Family Medical History / Comment(s): Father at 40 of a [place]. Mother Family Medical History: CVA/TIA Additional Family Medical History / Comment(s): Mother had a CVA Medications and Allergies Home Medications Medication Instructions Recorded Confirmed Type Ezetimibe [Zetia] 10 mg PO DAILY 11/14/13 02/04/17 History Furosemide [Lasix] 40 mg PO DAILY 11/14/13 02/04/17 History Gabapentin [Neurontin] 300 mg PO QAM 11/14/13 02/04/17 History Metoprolol Tartrate [Lopressor] 25 mg PO BID 11/14/13 02/04/17 History Potassium Chloride [K-Tab ER] 10 meq PO HS 11/14/13 02/04/17 History glipiZIDE [Glucotrol] 20 mg PO BID 11/14/13 02/04/17 History metFORMIN HCL 1,000 mg PO BID 11/14/13 02/04/17 History Nitroglycerin Sl Tabs [Nitrostat] 0.4 mg SUBLINGUAL Q5M PRN 07/20/15 02/04/17 History sitaGLIPtin PHOSPHATE [Januvia] 100 mg PO DAILY 07/20/15 02/04/17 History Cyanocobalamin [Vitamin B-12 1,000 mcg SQ Q28D 07/29/15 02/04/17 History Injection] Albuterol Sulfate [Proventil Hfa] 2 puff INHALATION RT-Q4H PRN 06/05/16 History Beclomethasone Dip 80 Mcg/Puff 2 puff INHALATION RT-BID 06/05/16 02/04/17 History [Qvar] HYDROcodone/APAP 5-325MG [[place] 1 tab PO Q6HR PRN 06/13/16 02/04/17 History 5-325] Amitriptyline HCl [Elavil] 50 mg PO HS 02/04/17 02/04/17 History Gabapentin 600 mg PO HS 02/04/17 02/04/17 History Lisinopril [Zestril] 5 mg PO BID 02/04/17 02/04/17 History Allergies Allergy/AdvReac Type Severity Reaction Status Date / Time Penicillins Allergy Rash/Hives Verified 02/04/17 15:37 Physical Exam Vitals: Vital Signs Temp Pulse Resp BP Pulse Ox 02/05/17 10:00 108 H 20 134/51 96 02/05/17 09:30 112 H 22 139/56 96 02/05/17 09:00 109 H 19 136/63 96 02/05/17 08:30 111 H 22 136/63 97 02/05/17 08:00 98.1 F 106 H 20 133/47 96 02/05/17 07:30 106 H 20 140/50 96 02/05/17 07:00 106 H 23 146/57 96 02/05/17 06:30 105 H 21 111/57 96 02/05/17 06:00 104 H 25 H 120/48 97 02/05/17 05:30 107 H 22 137/51 96 02/05/17 05:00 103 H 22 133/54 96 02/05/17 04:30 102 H 23 117/59 97 02/05/17 04:00 98.2 F 103 H 58 H 110/41 96 02/05/17 03:30 102 H 22 131/56 97 02/05/17 03:00 100 22 125/54 99 02/05/17 02:30 100 20 126/40 97 02/05/17 02:00 99 19 122/44 98 02/05/17 01:30 81 25 H 107/42 98 02/05/17 01:00 80 20 111/43 98 02/05/17 00:30 79 16 121/51 99 02/05/17 00:00 99.2 F 82 15 119/49 95 02/04/17 23:30 78 18 121/53 99 02/04/17 23:17 77 24 109/46 99 02/04/17 23:00 92 23 109/46 99 02/04/17 22:30 77 19 97/44 99 02/04/17 22:00 77 20 98 02/04/17 21:30 82 85/35 97 02/04/17 21:00 84 86/44 98 02/04/17 20:30 98.1 F 83 91/41 97 02/04/17 20:00 85 87/64 97 02/04/17 19:30 86 101/47 96 02/04/17 19:08 87 02/04/17 18:45 98.9 F 87 18 102/41 95 02/04/17 18:26 84 84/47 95 02/04/17 18:00 86 73/39 95 02/04/17 17:41 86 86/51 95 06 17:26 88 83/50 96 06 17:21 88 89/53 95 06 17:09 90 87/48 95 0617 16:56 92 18 88/52 95 06 16:52 101.5 F H 06 16:41 98 85/51 98 06 16:26 108 H 86/51 98 02/04/17 16:10 96 18 117/58 97 06 15:54 103 H 18 86/48 96 06 15:31 104.4 F H 111 H 22 103/56 89 L Intake and Output 08/06/17 08/07/17 08/07/17 22:59 06:59 14:59 Intake Total 114.063 800 825.937 Output Total 1080 1380 570 Balance -965.937 -580 255.937 Intake: IV 100 800 350 Aztreonam 1 gm In Sodium 100 Chloride 0.9% 50 ml @ 50 mls/hr IVPB Q8HR [facility] Rx#: [id number] Sodium Chloride 0.9% 1, 100 800 250 000 ml @ 100 mls/hr IV . Q10H [facility] Rx#:[id number] Intake, IV Titration 14.063 235.937 Amount Norepinephrin 4 mg-0.9% 14.063 235.937 Ns Pmx 4 mg In 250 ml @ Titrate IV .Q0M [facility] Rx#: [id number] Oral 240 Output: Urine 1080 1380 570 Uretheral ([place]) 950 Other: Voiding Method Indwelling Catheter Indwelling Catheter Indwelling Catheter Weight 108.8 kg 116 kg The patient appeared well nourished and normally developed. The patient is morbidly obese and she is calm and comfortable. No signs of any respiratory distress. Vital signs as documented. Head exam is unremarkable. No scleral icterus or corneal arcus noted. Neck is without jugular venous distension, thyromegaly, or carotid bruits. Carotid upstrokes are brisk bilaterally. Lungs are clear to auscultation and percussion. Cardiac exam reveals the PMI to be normally sized and situated. Rhythm is regular. First and second heart sounds normal. There is a systolic ejection murmur grade 4/6 heard throughout the precordium mainly in the left lateral sternal border, rubs or gallops. Abdominal exam reveals normal bowel sounds, no masses, no organomegaly and no aortic enlargement. Extremities are nonedematous and both femoral and pedal pulses are normal. Results - Laboratory Findings CBC and BMP: 02/05/17 04:32 02/05/17 04:32 PT/INR, D-dimer PT 11.1 sec (9.0-12.0) 02/04/17 15:43 INR 1.1 (<1.2) 02/04/17 15:43 Abnormal lab findings: Abnormal Labs 08/06/17 08/06/17 08/06/17 15:43 15:43 15:43 WBC 24.7 H RBC Hgb Hct Neutrophils # 20.7 H Monocytes # 1.5 H Potassium 5.2 H Chloride Carbon Dioxide BUN 35 H Creatinine 1.30 H Glucose 210 H POC Glucose (mg/dL) Plasma Lactic Acid Russel 2.5 H* Calcium Urine Appearance Urine Protein Ur Leukocyte Esterase Urine WBC Urine Bacteria Hyaline Casts Urine Mucus 02/04/17 02/04/17 02/04/17 16:10 19:10 22:39 WBC RBC Hgb Hct Neutrophils # Monocytes # Potassium Chloride Carbon Dioxide BUN Creatinine Glucose POC Glucose (mg/dL) 198 H 129 H Plasma Lactic Acid Russel Calcium Urine Appearance Cloudy H Urine Protein Trace H Ur Leukocyte Esterase Moderate H Urine WBC 8 H Urine Bacteria Many H Hyaline Casts 7 H Urine Mucus Few H 02/05/17 02/05/17 02/05/17 04:32 04:32 07:55 WBC 17.1 H RBC 3.44 L Hgb 9.6 L D Hct 30.4 L Neutrophils # 12.1 H Monocytes # 1.4 H Potassium Chloride 110 H Carbon Dioxide 19 L BUN 27 H Creatinine Glucose 147 H POC Glucose (mg/dL) 173 H Plasma Lactic Acid Russel Calcium 7.5 L Urine Appearance Urine Protein Ur Leukocyte Esterase Urine WBC Urine Bacteria Hyaline Casts Urine Mucus - Diagnostic Findings Chest x-ray: image reviewed Assessment and Plan Plan: Assessment 1 sepsis/septic shock, resuscitated adequately with fluids and pressors and antibiotics. Likely secondary to a right lower lobe pneumonia. Underlying urine checked infection cannot be completely ruled out and that can be another oral alternative source of an infection. Awaiting cultures. 2 hypotension secondary to above, recovered and the patient is currently off pressors 3 leukocytosis secondary to above 4 mild lactic acidosis 5 morbid obesity 6 diabetes mellitus maintained on oral hypoglycemics 7 COPD on Qvar and albuterol rescue inhaler necessary basis 8 hyperlipidemia 9 osteoarthritis 10 hypertension 11 chronic back pain with a previous laminectomy and decompression involving the lumbosacral spine 12 chronic neck pain 13 cardiac murmur with a previous echocardiogram from 2014 showing a preserved LV function Plan The IV Fluids to 50 cc an Hour. Continue the Levaquin and the Aztreonam. Urine Culture. Blood Culture. No Pressors for Now. Mentation Is within Normal. The Patient Came in with Out Of the Intensive Care Unit. Repeat Chest X-Ray in the Morning. Further Recommendations Are to Follow Based on Her Overall Clinical Response.
--- NOTE | 2017-02-05 11:26 | XR ---
EXAMINATION TYPE: XR chest 1V DATE OF EXAM: 02/05/2017 COMPARISON: Prior chest x-ray 02/04/2017 HISTORY: Pneumonia TECHNIQUE: Single frontal view of the chest is obtained. FINDINGS: Airspace disease present in the right lower lobe. Patient is rotated. No pneumothorax or p leural effusion. Cardiac mediastinal silhouette, pulmonary vascularity and xenia not significantly angel nged. IMPRESSION: Correlate for right lower lobe pneumonia, follow-up is recommended.
--- NOTE | 2017-02-05 12:11 | XR ---
Left foot and ankle HISTORY: Foot and ankle pain, trauma 3 views of the left foot on 4 images and 3 views of the left ankle are submitted. Hallux valgus deformity is present. Bone mineralization is obtained. Degenerative changes are present at the intertarsal joints. There is a plantar calcaneal spur. Vascular calcifications are present. T here is widening of the tibiotalar joint. At the level of the distal tibia anteriorly there is possib le spurring present, there may have been remote trauma. Enthesophyte present at the insertion of the Achilles tendon. Soft tissue swelling is noted. Distal fibula appears irregular, there may been remot e trauma, there are areas of cortical thickening. Small ossific densities are present distal to the f ibula which could represent avulsion injury or chip fracture. IMPRESSION: Findings suggest ligamentous disruption, there is widening at the tibiotalar joint, secon [place] osteoarthritic changes are present. Difficult to exclude fracture, an avulsion injury, chip frac ture of the distal fibula, correlate for history of remote trauma. Additional findings above. CT or M RI may be of benefit.
[2017-02-05 12:25] LABS: Hemoglobin A1C 6.5 % (4.2-6.1)
[2017-02-05 12:54] LABS: Glucose,Whole Blood 145 mg/dL (75-99)
[2017-02-05] MEDS ORDERED: NITROGLYCERIN SL TABS 0.4 MG TAB SUBLINGUAL PRN (14:15)
--- NOTE | 2017-02-05 14:19 | P.HPIM ---
History of Present Illness H&P Date: 02/05/17 Chief Complaint: Weakness and confusion This is a pleasant 81-year-old white female my practice. Apparently 24 hours ago she began experiencing increasing confusion. Her daughter mentioned she had symptoms of a UTI previously to this. She was brought to the emergency room after being confused and falling down. She was diagnosed with sepsis secondary to UTI. She had fluid rehydration, but remained hypotensive and was admitted to the intensive care unit. She had had levothyroid originally. It is now been discontinued. Her mentation currently is much improved from24 hours ago. Concepcion has no significantly to this time other than left ankle pain. She denies any trauma. She lives at home with her . She uses a walker and/or cane for ambulation. Review of Systems All systems: negative Past Medical History Past Medical History: Chest Pain / Angina, Diabetes Mellitus, GERD/Reflux, Hyperlipidemia, Hypertension, Osteoarthritis (OA) Additional Past Medical History / Comment(s): NIDDM, acid reflux, hyperlipidemia , hypertension, osteoarthritis, previous history of right ankle fracture, the patient embolus with the help of a walker, chronic back pain with previous laminectomy and decompression involving the lumbosacral spine, hiatal hernia History of Any Multi-Drug Resistant Organisms: None Reported Past Surgical History: Back Surgery, Joint Replacement, Orthopedic Surgery Additional Past Surgical History / Comment(s): 07/29/15 lumbar laminectomy decompression fusion L3-4 and L5-S1 with cell saver, lumbar instrumentation removal L4-5, ZULY KNEE REPLACEMENTS,ORIF RT ANKLE,L4-5 LAMINECTOMY, NECK FUSION , PAIN CLINIC, cataracts, zuly rotator cuff repair, surgery to zuly wrist, pain procedures. Past Anesthesia/Blood Transfusion Reactions: No Reported Reaction Additional Past Anesthesia/Blood Transfusion Reaction / Comment(s): Pt states she has never received blood. Past Psychological History: No Psychological Hx Reported Additional Psychological History / Comment(s): Pt resides with her spouse. She uses a walker or cane to ambulate. She no longer drives but her spouse does. She has no home care. Smoking Status: Former smoker Past Alcohol Use History: None Reported Additional Past Alcohol Use History / Comment(s): QUIT SMOKING 1974, 12 YRS @ 1 1/2 PPD. Past Drug Use History: None Reported - Past Family History Father Brother(s) Family Medical History: Cancer Mother Sister(s) Family Medical History: Cancer Father Family Medical History: Myocardial Infarction ([place]) Additional Family Medical History / Comment(s): Father at 40 of a [place]. Mother Family Medical History: CVA/TIA Additional Family Medical History / Comment(s): Mother had a CVA Medications and Allergies Home Medications Medication Instructions Recorded Confirmed Type Ezetimibe [Zetia] 10 mg PO DAILY 11/14/13 02/04/17 History Furosemide [Lasix] 40 mg PO DAILY 11/14/13 02/04/17 History Gabapentin [Neurontin] 300 mg PO QAM 11/14/13 02/04/17 History Metoprolol Tartrate [Lopressor] 25 mg PO BID 11/14/13 02/04/17 History Potassium Chloride [K-Tab ER] 10 meq PO HS 11/14/13 02/04/17 History glipiZIDE [Glucotrol] 20 mg PO BID 11/14/13 02/04/17 History metFORMIN HCL 1,000 mg PO BID 11/14/13 02/04/17 History Nitroglycerin Sl Tabs [Nitrostat] 0.4 mg SUBLINGUAL Q5M PRN 07/20/15 02/04/17 History sitaGLIPtin PHOSPHATE [Januvia] 100 mg PO DAILY 07/20/15 02/04/17 History Cyanocobalamin [Vitamin B-12 1,000 mcg SQ Q28D 07/29/15 02/04/17 History Injection] Albuterol Sulfate [Proventil Hfa] 2 puff INHALATION RT-Q4H PRN 06/05/16 History Beclomethasone Dip 80 Mcg/Puff 2 puff INHALATION RT-BID 06/05/16 02/04/17 History [Qvar] HYDROcodone/APAP 5-325MG [[place] 1 tab PO Q6HR PRN 06/13/16 02/04/17 History 5-325] Amitriptyline HCl [Elavil] 50 mg PO HS 02/04/17 02/04/17 History Gabapentin 600 mg PO HS 02/04/17 02/04/17 History Lisinopril [Zestril] 5 mg PO BID 02/04/17 02/04/17 History Allergies Allergy/AdvReac Type Severity Reaction Status Date / Time Penicillins Allergy Rash/Hives Verified 02/04/17 15:37 Physical Exam Vitals: Vital Signs Temp Pulse Resp BP Pulse Ox 02/05/17 10:00 108 H 20 134/51 96 02/05/17 09:30 112 H 22 139/56 96 02/05/17 09:00 109 H 19 136/63 96 02/05/17 08:30 111 H 22 136/63 97 02/05/17 08:00 98.1 F 106 H 20 133/47 96 02/05/17 07:30 106 H 20 140/50 96 02/05/17 07:00 106 H 23 146/57 96 02/05/17 06:30 105 H 21 111/57 96 02/05/17 06:00 104 H 25 H 120/48 97 02/05/17 05:30 107 H 22 137/51 96 02/05/17 05:00 103 H 22 133/54 96 02/05/17 04:30 102 H 23 117/59 97 02/05/17 04:00 98.2 F 103 H 58 H 110/41 96 02/05/17 03:30 102 H 22 131/56 97 02/05/17 03:00 100 22 125/54 99 02/05/17 02:30 100 20 126/40 97 02/05/17 02:00 99 19 122/44 98 02/05/17 01:30 81 25 H 107/42 98 02/05/17 01:00 80 20 111/43 98 02/05/17 00:30 79 16 121/51 99 02/05/17 00:00 99.2 F 82 15 119/49 95 02/04/17 23:30 78 18 121/53 99 02/04/17 23:17 77 24 109/46 99 02/04/17 23:00 92 23 109/46 99 02/04/17 22:30 77 19 97/44 99 02/04/17 22:00 77 20 98 02/04/17 21:30 82 85/35 97 02/04/17 21:00 84 86/44 98 02/04/17 20:30 98.1 F 83 91/41 97 02/04/17 20:00 85 87/64 97 02/04/17 19:30 86 101/47 96 02/04/17 19:08 87 02/04/17 18:45 98.9 F 87 18 102/41 95 02/04/17 18:26 84 84/47 95 02/04/17 18:00 86 73/39 95 02/04/17 17:41 86 86/51 95 02/04/17 17:26 88 83/50 96 02/04/17 17:21 88 89/53 95 02/04/17 17:09 90 87/48 95 02/04/17 16:56 92 18 88/52 95 02/04/17 16:52 101.5 F H 02/04/17 16:41 98 85/51 98 02/04/17 16:26 108 H 86/51 98 02/04/17 16:10 96 18 117/58 97 02/04/17 15:54 103 H 18 86/48 96 02/04/17 15:31 104.4 F H 111 H 22 103/56 89 L Intake and Output 02/04/17 02/05/17 02/05/17 22:59 06:59 14:59 Intake Total 114.633 313 0461.937 Output Total 1080 1380 921 Balance -965.937 -580 587.937 Intake: IV 100 800 793 Aztreonam 1 gm In Sodium 100 Chloride 0.9% 50 ml @ 50 mls/hr IVPB Q8HR [facility] Rx#: [id number] Sodium Chloride 0.9% 1, 100 800 693 000 ml @ 50 mls/hr IV . Q20H [facility] Rx#:[id number] Intake, IV Titration 14.063 235.937 Amount Norepinephrin 4 mg-0.9% 14.063 235.937 Ns Pmx 4 mg In 250 ml @ Titrate IV .Q0M [facility] Rx#: [id number] Oral 480 Output: Urine 1080 1380 920 Uretheral ([place]) 950 Stool 1 Other: Voiding Method Indwelling Catheter Indwelling Catheter Indwelling Catheter Weight 108.8 kg 116 kg GENERAL: well-nourished and in no acute distress. HEAD: Atraumatic, normocephalic. EYES: Pupils equal round and reactive to light, extraocular movements intact, sclera anicteric, conjunctiva are normal. ENT:nares patent, oropharynx clear without exudates. Moist mucous membranes. NECK: Normal range of motion, supple without lymphadenopathy or JVD, no thyromegaly LUNGS: Breath sounds clear to auscultation bilaterally and equal. No wheezes rales or rhonchi. HEART: Regular rate and rhythm without rubs or gallops.S1S2 Normal, Systolic murmur, heard best over the right sternal border ABDOMEN: Soft, nontender, normoactive bowel sounds. No guarding, no rebound. No masses appreciated. EXTREMITIES: Left ankle is edematous and painful to palpation compared to the right. There is no erythema. Range of motion increases her pain. NEUROLOGICAL: Cranial nerves II through XII grossly intact. Normal speech, normal gait. AAO 3 PSYCH: Normal mood, normal affect. SKIN: Warm, Dry, normal turgor, no rashes or lesions noted. Results CBC & Chem 7: 02/05/17 04:32 02/05/17 04:32 Labs: Abnormal Lab Results - Last 24 Hours (Table) 02/04/17 02/04/17 02/04/17 Range/Units 15:43 15:43 15:43 WBC 24.7 H (3.8-10.6) k/uL RBC (3.80-5.40) m/uL Hgb (11.4-16.0) gm/dL Hct (34.0-46.0) % Neutrophils # 20.7 H (1.3-7.7) k/uL Monocytes # 1.5 H (0-1.0) k/uL Potassium 5.2 H (3.5-5.1) mmol/L Chloride (98-107) mmol/L Carbon Dioxide (22-30) mmol/L BUN 35 H (7-17) mg/dL Creatinine 1.30 H (0.52-1.04) mg/dL Glucose 210 H (74-99) mg/dL POC Glucose (mg/dL) (75-99) mg/dL Hemoglobin A1c (4.2-6.1) % Plasma Lactic Acid Russel 2.5 H* (0.7-2.0) mmol/L Uric Acid (3.7-7.4) mg/dL Calcium (8.4-10.2) mg/dL Urine Appearance (Clear) Urine Protein (Negative) Ur Leukocyte Esterase (Negative) Urine WBC (0-5) /hpf Urine Bacteria (None) /hpf Hyaline Casts (0-2) /lpf Urine Mucus (None) /hpf 02/04/17 02/04/17 02/04/17 Range/Units 16:10 19:10 22:39 WBC (3.8-10.6) k/uL RBC (3.80-5.40) m/uL Hgb (11.4-16.0) gm/dL Hct (34.0-46.0) % Neutrophils # (1.3-7.7) k/uL Monocytes # (0-1.0) k/uL Potassium (3.5-5.1) mmol/L Chloride (98-107) mmol/L Carbon Dioxide (22-30) mmol/L BUN (7-17) mg/dL Creatinine (0.52-1.04) mg/dL Glucose (74-99) mg/dL POC Glucose (mg/dL) 198 H 129 H (75-99) mg/dL Hemoglobin A1c (4.2-6.1) % Plasma Lactic Acid Russel (0.7-2.0) mmol/L Uric Acid (3.7-7.4) mg/dL Calcium (8.4-10.2) mg/dL Urine Appearance Cloudy H (Clear) Urine Protein Trace H (Negative) Ur Leukocyte Esterase Moderate H (Negative) Urine WBC 8 H (0-5) /hpf Urine Bacteria Many H (None) /hpf Hyaline Casts 7 H (0-2) /lpf Urine Mucus Few H (None) /hpf 02/05/17 02/05/17 02/05/17 Range/Units 04:32 04:32 04:32 WBC 17.1 H (3.8-10.6) k/uL RBC 3.44 L (3.80-5.40) m/uL Hgb 9.6 L D (11.4-16.0) gm/dL Hct 30.4 L (34.0-46.0) % Neutrophils # 12.1 H (1.3-7.7) k/uL Monocytes # 1.4 H (0-1.0) k/uL Potassium (3.5-5.1) mmol/L Chloride 110 H (98-107) mmol/L Carbon Dioxide 19 L (22-30) mmol/L BUN 27 H (7-17) mg/dL Creatinine (0.52-1.04) mg/dL Glucose 147 H (74-99) mg/dL POC Glucose (mg/dL) (75-99) mg/dL Hemoglobin A1c 6.5 H (4.2-6.1) % Plasma Lactic Acid Russel (0.7-2.0) mmol/L Uric Acid (3.7-7.4) mg/dL Calcium 7.5 L (8.4-10.2) mg/dL Urine Appearance (Clear) Urine Protein (Negative) Ur Leukocyte Esterase (Negative) Urine WBC (0-5) /hpf Urine Bacteria (None) /hpf Hyaline Casts (0-2) /lpf Urine Mucus (None) /hpf 02/05/17 02/05/17 02/05/17 Range/Units 04:32 07:55 12:34 WBC (3.8-10.6) k/uL RBC (3.80-5.40) m/uL Hgb (11.4-16.0) gm/dL Hct (34.0-46.0) % Neutrophils # (1.3-7.7) k/uL Monocytes # (0-1.0) k/uL Potassium (3.5-5.1) mmol/L Chloride (98-107) mmol/L Carbon Dioxide (22-30) mmol/L BUN (7-17) mg/dL Creatinine (0.52-1.04) mg/dL Glucose (74-99) mg/dL POC Glucose (mg/dL) 173 H 145 H (75-99) mg/dL Hemoglobin A1c (4.2-6.1) % Plasma Lactic Acid Russel (0.7-2.0) mmol/L Uric Acid 8.4 H (3.7-7.4) mg/dL Calcium (8.4-10.2) mg/dL Urine Appearance (Clear) Urine Protein (Negative) Ur Leukocyte Esterase (Negative) Urine WBC (0-5) /hpf Urine Bacteria (None) /hpf Hyaline Casts (0-2) /lpf Urine Mucus (None) /hpf Microbiology - Last 24 Hours (Table) 02/04/17 16:10 Urine Culture - Preliminary Urine,Catheterized Thrombosis Risk Factor Assmnt - DVT/VTE Prophylaxis DVT/VTE Prophylaxis: Pharmacologic Prophylaxis ordered - Choose All That Apply Each Factor Represents 1 point: Medical pt on bed rest, Obesity (BMI >25) Thrombosis Risk Factor Assessment Total Risk Factor Score: 2 Thrombosis Risk Factor Assessment Level: Low Risk Assessment and Plan Plan: sepsis m due to underlying infection: Possible UTI versus occult pneumonia. Weight on critical care recommendations. hypotension: secondary to above, recovered and the patient is currently off pressors leukocytosis secondary to above, Continue to monitor diabetes mellitus: Accu-Cheks before meals and at bedtime Humalog scale, Restart metformin and Januvia COPD: on Qvar and albuterol hyperlipidemia: Restart Zetia osteoarthritis: Continue to monitor hypertension: Normal blood pressures improved, she may need to restart metoprolol, Lasix, when necessary nitroglycerin chronic neck & back pain h/o Lumbar Lami: controlledTotal she could restart Wilkinson for pain cardiac murmur: Continue to monitor, may follow up with 2-D echo I will not consult recommendations and reconcile medications. He is much improved from her admission. I'll reevaluate in the next 24 hours.
[2017-02-05] MEDS: HYDROcodone/APAP 7.5-325MG 1 EACH TAB PO PRN ×2 (14:27→21:28)
--- NOTE | 2017-02-05 16:41 | P.CNOR ---
History of Present Illness - [facility] Consult date: 02/05/17 Requesting physician: Дмитрий Montoya Consult reason: joint pain (Left ankle pain and swelling) History of present illness: Patient is a very pleasant 81-year-old female who is seen and examined at bedside after we were consulted for further evaluation for left ankle pain and swelling. She was originally admitted on 02/04/2017 for singificant weakness, urinary tract infection, and confusion with suspected septic shock At that time she was found to have a urinary tract infection with sepsis. Since that time her symptoms have significantly improved. She is awake, alert, oriented 3. Prior to her admittance to the hospital she did have a history of 2 falls without injury. She states after her presentation to the emergency department she started to experience left ankle pain and swelling. Her pain has been quite debilitating for her. She's been unwilling to get out of bed or weight- bear on left lower extremity due to her pain. Nursing states she will only use a bedpan for voiding and bowel movements. X-rays left ankle were taken prior to examination at the bedside. Patient states she has significant pain with even light palpation over the entire left ankle. She has pain over the left foot, toes and lower extremity below the knee as well. She cannot tolerate pneumatic cuffs over the left lower extremity due to pain in the lower extremity. She denies any right lower extremity pain. Patient states she does have a walker at home which she could use to aid in ambulation. Prior to examination, labs were taken that also showed evidence of elevated uric acid levels. Patient is currently being seen and examined and treated by Dr. Montoya with further recommendations to follow. Past Medical History Past Medical History: Chest Pain / Angina, Diabetes Mellitus, GERD/Reflux, Hyperlipidemia, Hypertension, Osteoarthritis (OA) Additional Past Medical History / Comment(s): NIDDM, acid reflux, hyperlipidemia , hypertension, osteoarthritis, previous history of right ankle fracture, the patient embolus with the help of a walker, chronic back pain with previous laminectomy and decompression involving the lumbosacral spine, hiatal hernia History of Any Multi-Drug Resistant Organisms: None Reported Past Surgical History: Back Surgery, Joint Replacement, Orthopedic Surgery Additional Past Surgical History / Comment(s): 07/29/15 lumbar laminectomy decompression fusion L3-4 and L5-S1 with cell saver, lumbar instrumentation removal L4-5, ZULY KNEE REPLACEMENTS,ORIF RT ANKLE,L4-5 LAMINECTOMY, NECK FUSION , PAIN CLINIC, cataracts, zuly rotator cuff repair, surgery to zuly wrist, pain procedures. Past Anesthesia/Blood Transfusion Reactions: No Reported Reaction Additional Past Anesthesia/Blood Transfusion Reaction / Comm: Pt states she has never received blood. Past Psychological History: No Psychological Hx Reported Additional Psychological History / Comment(s): Pt resides with her spouse. She uses a walker or cane to ambulate. She no longer drives but her spouse does. She has no home care. Smoking Status: Former smoker Past Alcohol Use History: None Reported Additional Past Alcohol Use History / Comment(s): QUIT SMOKING 1974, 12 YRS @ 1 1/2 PPD. Past Drug Use History: None Reported - Past Family History Father Brother(s) Family Medical History: Cancer Mother Sister(s) Family Medical History: Cancer Father Family Medical History: Myocardial Infarction ([place]) Additional Family Medical History / Comment(s): Father at 40 of a [place]. Mother Family Medical History: CVA/TIA Additional Family Medical History / Comment(s): Mother had a CVA Medications and Allergies Home Medications Medication Instructions Recorded Confirmed Type Ezetimibe [Zetia] 10 mg PO DAILY 11/14/13 02/04/17 History Furosemide [Lasix] 40 mg PO DAILY 11/14/13 02/04/17 History Gabapentin [Neurontin] 300 mg PO QAM 11/14/13 02/04/17 History Metoprolol Tartrate [Lopressor] 25 mg PO BID 11/14/13 02/04/17 History Potassium Chloride [K-Tab ER] 10 meq PO HS 11/14/13 02/04/17 History glipiZIDE [Glucotrol] 20 mg PO BID 11/14/13 02/04/17 History metFORMIN HCL 1,000 mg PO BID 11/14/13 02/04/17 History Nitroglycerin Sl Tabs [Nitrostat] 0.4 mg SUBLINGUAL Q5M PRN 07/20/15 02/04/17 History sitaGLIPtin PHOSPHATE [Januvia] 100 mg PO DAILY 07/20/15 02/04/17 History Cyanocobalamin [Vitamin B-12 1,000 mcg SQ Q28D 07/29/15 02/04/17 History Injection] Albuterol Sulfate [Proventil Hfa] 2 puff INHALATION RT-Q4H PRN 06/05/16 History Beclomethasone Dip 80 Mcg/Puff 2 puff INHALATION RT-BID 06/05/16 02/04/17 History [Qvar] HYDROcodone/APAP 5-325MG [[place] 1 tab PO Q6HR PRN 06/13/16 02/04/17 History 5-325] Amitriptyline HCl [Elavil] 50 mg PO HS 02/04/17 02/04/17 History Gabapentin 600 mg PO HS 02/04/17 02/04/17 History Lisinopril [Zestril] 5 mg PO BID 02/04/17 02/04/17 History Allergies Allergy/AdvReac Type Severity Reaction Status Date / Time Penicillins Allergy Rash/Hives Verified 02/04/17 15:37 Physical Examination Physical Exam: Patient is awake, alert, and oriented 3 Vital signs stable Good chest excursion with deep inspiration and expiration Abdomen soft nontender No signs or symptoms of DVT; no calf pain Significant swelling over the left ankle most significant laterally Examination of the left ankle shows no evidence of erythema or ecchymosis; No obvious sign of infection Significant pain with palpation of the entire left ankle Pain with palpation over the top of the foot, all toes of the left foot, and of the left lower extremity below the knee to the ankle Skin difficulty with range of motion of the left ankle including plantarflexion and dorsiflexion Adequate range of motion of the right lower extremity out significant difficulty Skin swelling over the left ankle most significant laterally Results Pertinent studies: X-rays the left ankle and foot: No sign of distal fibula or distal tibial fracture; no evidence of ankle mortise widening; evidence of significant swelling of the left ankle most significant laterally 02/05/2017: WBC: 17.1 Neutrophils: 12.1 Uric Acid 8.4 - Labs Labs: Abnormal Lab Results - Last 24 Hours (Table) 02/04/17 02/04/17 02/04/17 Range/Units 16:10 19:10 22:39 WBC (3.8-10.6) k/uL RBC (3.80-5.40) m/uL Hgb (11.4-16.0) gm/dL Hct (34.0-46.0) % Neutrophils # (1.3-7.7) k/uL Monocytes # (0-1.0) k/uL Chloride (98-107) mmol/L Carbon Dioxide (22-30) mmol/L BUN (7-17) mg/dL Glucose (74-99) mg/dL POC Glucose (mg/dL) 198 H 129 H (75-99) mg/dL Hemoglobin A1c (4.2-6.1) % Uric Acid (3.7-7.4) mg/dL Calcium (8.4-10.2) mg/dL Urine Appearance Cloudy H (Clear) Urine Protein Trace H (Negative) Ur Leukocyte Esterase Moderate H (Negative) Urine WBC 8 H (0-5) /hpf Urine Bacteria Many H (None) /hpf Hyaline Casts 7 H (0-2) /lpf Urine Mucus Few H (None) /hpf 02/05/17 02/05/17 02/05/17 Range/Units 04:32 04:32 04:32 WBC 17.1 H (3.8-10.6) k/uL RBC 3.44 L (3.80-5.40) m/uL Hgb 9.6 L D (11.4-16.0) gm/dL Hct 30.4 L (34.0-46.0) % Neutrophils # 12.1 H (1.3-7.7) k/uL Monocytes # 1.4 H (0-1.0) k/uL Chloride 110 H (98-107) mmol/L Carbon Dioxide 19 L (22-30) mmol/L BUN 27 H (7-17) mg/dL Glucose 147 H (74-99) mg/dL POC Glucose (mg/dL) (75-99) mg/dL Hemoglobin A1c 6.5 H (4.2-6.1) % Uric Acid (3.7-7.4) mg/dL Calcium 7.5 L (8.4-10.2) mg/dL Urine Appearance (Clear) Urine Protein (Negative) Ur Leukocyte Esterase (Negative) Urine WBC (0-5) /hpf Urine Bacteria (None) /hpf Hyaline Casts (0-2) /lpf Urine Mucus (None) /hpf 02/05/17 02/05/17 02/05/17 Range/Units 04:32 07:55 12:34 WBC (3.8-10.6) k/uL RBC (3.80-5.40) m/uL Hgb (11.4-16.0) gm/dL Hct (34.0-46.0) % Neutrophils # (1.3-7.7) k/uL Monocytes # (0-1.0) k/uL Chloride (98-107) mmol/L Carbon Dioxide (22-30) mmol/L BUN (7-17) mg/dL Glucose (74-99) mg/dL POC Glucose (mg/dL) 173 H 145 H (75-99) mg/dL Hemoglobin A1c (4.2-6.1) % Uric Acid 8.4 H (3.7-7.4) mg/dL Calcium (8.4-10.2) mg/dL Urine Appearance (Clear) Urine Protein (Negative) Ur Leukocyte Esterase (Negative) Urine WBC (0-5) /hpf Urine Bacteria (None) /hpf Hyaline Casts (0-2) /lpf Urine Mucus (None) /hpf Microbiology - Last 24 Hours (Table) 02/04/17 16:10 Urine Culture - Preliminary Urine,Catheterized H & H 02/04/17 02/05/17 Range/Units 15:43 04:32 Hgb 11.4 9.6 L D (11.4-16.0) gm/dL Hct 34.4 30.4 L (34.0-46.0) % Coagulation 02/04/17 Range/Units 15:43 INR 1.1 (<1.2) Result Diagrams: 02/05/17 04:32 02/05/17 04:32 Assessment and Plan (1) Left ankle pain Status: Acute (2) Left ankle swelling Status: Acute (3) Septic shock Status: Acute (4) Urinary tract infection Status: Acute (5) Fall Status: Acute Plan: Assessment: Left ankle pain/swelling S/P fall x2 Urinary tract infection Weakness Septic Shock Confusion - Resolved Possible gouty arthritis of the left ankle Plan: 1. After further discussion with Dr. Sabino Ibanez, reviewing of imaging, physical examination of the patient, and further discussion with the patient, we will currently planned to continue conservative treatment in regards to her left ankle. There is no evidence of acute fracture at the left ankle or evidence of ankle mortis widening after reviewing imaging. Patient is experiencing significant swelling and pain at the left ankle as well as pain in the entire lower extremity below the knee. She is not currently able to tolerate pneumatic cuffs. Even light palpation causes pain over the left lower extremity. It is difficult to believe she would be able to tolerate a boot for her left lower extremity. At this time we'll plan to have her use a walker to aid in ambulation. Patient states she has walker at home. Her is coming to visit her this evening and can bring this walker with him. She does have evidence of elevated uric acid levels following recent lab results. Patient is currently waiting for further evaluation and treatment recommendations by Dr. Montoya in medicine. Following her recent lab results , he may plan to treat the patient for possible gouty arthritis. We'll continue to follow patient. If the patient is unable to progress with conservative treatment, we may plan to order a boot to cuprous chloride helper in ambulation. At this time she is encouraged to work with therapy along with the assistance of a walker to increase her mobility and ambulation. We are not currently planning for further imaging as we do not feel this imaging is currently indicated or would change her plan of care. 2. Dr. Montoya in medicine will continue following the patient 3. Dr. Palomares in Pulmonology will continue to follow the patient 4. Patient has been discussed in detail with Dr. Sabino Ibanez and he agrees with this plan Time with Patient: Less than 30
[2017-02-05 16:54] LABS: Glucose,Whole Blood 144 mg/dL (75-99)
[2017-02-05] MEDS: metFORMIN 500 MG TAB PO SCH (17:34)
[2017-02-05 20:10] LABS: Glucose,Whole Blood 165 mg/dL (75-99)
[2017-02-05] MEDS: METOPROLOL TARTRATE 25 MG TAB PO SCH (21:27)
[2017-02-05] MEDS: ATORVASTATIN 40 MG TAB PO SCH (21:27)
[2017-02-05] MEDS: AMITRIPTYLINE HCL 50 MG TAB PO SCH (21:27)
[2017-02-05] MEDS ORDERED: INSULIN LISPRO (humaLOG) 300 UNIT/3 ML VIAL SQ SCH (22:09)
[2017-02-06 07:35] LABS: Glucose,Whole Blood 153 mg/dL (75-99)
[2017-02-06] MEDS: EZETIMIBE 10 MG TAB PO SCH (07:50)
[2017-02-06] MEDS: HEPARIN SODIUM,PORCINE 5,000 UNIT/ML 1 ML VIAL SQ SCH ×2 (07:50→18:27)
[2017-02-06] MEDS: METOPROLOL TARTRATE 25 MG TAB PO SCH ×2 (07:50→21:55)
[2017-02-06] MEDS: LINAGLIPTIN 5 MG TABLET PO SCH (07:50)
[2017-02-06] MEDS: GABAPENTIN 300 MG CAP PO SCH (07:50)
[2017-02-06] MEDS: PANTOPRAZOLE 40 MG TABLET PO SCH (07:51)
[2017-02-06] MEDS: FUROSEMIDE 40 MG TAB PO SCH (07:51)
[2017-02-06] MEDS: metFORMIN 500 MG TAB PO SCH ×2 (07:54→18:26)
[2017-02-06 07:57] LABS: Basophils % (A) 0 %; CH 27.1; Eosinophils # (A) 0.2 k/uL (0-0.7); Eosinophils % (A) 2 %; HCT 29.5 % (34.0-46.0); HDW 2.71; HGB 9.3 gm/dL (11.4-16.0); Hypochromasia Slight; Luc # (Auto) 0.21; Luc % (Auto) 2; Lymphocytes % (A) 20 %; MCH 27.7 pg (25.0-35.0); MCHC 31.6 g/dL (31.0-37.0); MCV 87.7 fL (80.0-100.0); Mean Platelet Volume 6.9; Monocytes # (A) 0.8 k/uL (0-1.0); Monocytes % (A) 8 %; Neutrophils % (A) 68 %; RBC 3.37 m/uL (3.80-5.40); RDW 13.9 % (11.5-15.5); WBC 10.3 k/uL (3.8-10.6); WBC (Perox) 10.83
[2017-02-06] MEDS: INSULIN LISPRO (humaLOG) 300 UNIT/3 ML VIAL SQ SCH ×4 (07:57→21:56)
[2017-02-06] MEDS: HYDROcodone/APAP 7.5-325MG 1 EACH TAB PO PRN ×2 (08:02→21:55)
[2017-02-06] MEDS: AZTREONAM 1 GM in SODIUM CHLORIDE 0.9% 50 ML IVPB SCH ×2 (08:03→15:10)
[2017-02-06 08:20] LABS: Anion Gap 7 mmol/L; Blood Urea Nitrogen 15 mg/dL (7-17); Carbon Dioxide 22 mmol/L (22-30); Chloride 110 mmol/L (98-107); Glucose 155 mg/dL (74-99); Magnesium 1.9 mg/dL (1.6-2.3); Non-African American GFR(MDRD) >60 (>60 ml/min/1.73 sqM); Phosphorous 2.6 mg/dL (2.5-4.5); Potassium 4.1 mmol/L (3.5-5.1); Sodium 139 mmol/L (137-145)
--- NOTE | 2017-02-06 08:45 | XR ---
EXAMINATION TYPE: XR chest 2V DATE OF EXAM: 02/06/2017 COMPARISON: Previous dated 02/05/2017 HISTORY: Right lower lobe pneumonia TECHNIQUE: Frontal and lateral views of the chest are obtained. FINDINGS: Airspace disease again noted in the right lower lobe. Patient is rotated, difficult to excl ude left lower lobe increased density. There is no pleural effusion or pneumothorax seen. The cardia c silhouette size is stable. Prominent lung volumes suggest COPD. High riding shoulder could be gabriella cative of chronic rotator cuff tear. Acromioclavicular joint arthropathy changes present. Postop jaeger ges are noted in the cervical spine. The osseous structures are intact. IMPRESSION: Findings compatible with right lower lobe pneumonia. Rotated exam, follow-up recommended . Additional findings above.
--- NOTE | 2017-02-06 08:49 | P.PN ---
Progress Note - Text Patient is a very pleasant 81-year-old female who is seen and examined at bedside follow-up evaluation for left ankle pain and swelling. Since being seen and examined yesterday, her symptoms have not significantly changed. She states she has not been followed up by Dr. Montoya in medicine since my evaluation yesterday. Her was able to bring her walker to her yesterday. She states she continues to have significant pain below her left knee most significant over the ankle. She has significant difficulty with performing dorsiflexion and plantarflexion of the left ankle. She is able to perform better knee mobility this morning. She is currently sitting at the bedside comfortably eating without difficulty. Again today, she denies injury to her left ankle from her 2 recent falls. She continues to experience significant pain with even light palpation over the entire left ankle. She has pain over the left foot, toes and lower extremity below the knee as well. She cannot tolerate pneumatic cuffs over the left lower extremity due to pain in the lower extremity. She denies any right lower extremity pain. Lab results yesterday did show evidence of elevated uric acid levels. Patient is currently being seen and examined and treated by Dr. Montoya with further recommendations to follow. Physical Exam: Patient is awake, alert, and oriented 3; patient is sitting upright at the bedside without difficulty Vital signs stable Good chest excursion with deep inspiration and expiration Abdomen soft nontender No signs or symptoms of DVT; no calf pain Significant swelling over the left ankle most significant laterally Examination of the left ankle shows no evidence of erythema or ecchymosis; No obvious sign of infection Significant pain with palpation of the entire left ankle Pain with palpation over the top of the foot, all toes of the left foot, and of the left lower extremity below the knee to the ankle Skin difficulty with range of motion of the left ankle including plantarflexion and dorsiflexion Adequate range of motion of the right lower extremity out significant difficulty Skin swelling over the left ankle most significant laterally Patient is able to perform range of motion of the left knee easier today as compared yesterday Pertinent studies: X-rays the left ankle and foot: No sign of distal fibula or distal tibial fracture; no evidence of ankle mortise widening; evidence of significant swelling of the left ankle most significant laterally 02/05/2017: WBC: 17.1 Neutrophils: 12.1 Uric Acid 8.4 02/06/2017: WBC 10.3 Neutrophils 7.0 Assessment: Left ankle pain/swelling S/P fall x2 Urinary tract infection Weakness Septic Shock Confusion - Resolved Possible gouty arthritis of the left ankle Plan: 1. We will continue with the current plan of care as set forth yesterday, 2016. After further discussion with Dr. Sabino Ibanez, reviewing of imaging, physical examination of the patient, and further discussion with the patient, we will currently planned to continue conservative treatment in regards to her left ankle. There is no evidence of acute fracture at the left ankle or evidence of ankle mortis widening after reviewing imaging. Patient is experiencing significant swelling and pain at the left ankle as well as pain in the entire lower extremity below the knee. She is not currently able to tolerate pneumatic cuffs. Even light palpation causes pain over the left lower extremity. It is difficult to believe she would be able to tolerate a boot for her left lower extremity. At this time we'll plan to have her use a walker to aid in ambulation. Her delivered the walker to her yesterday. She does have evidence of elevated uric acid levels following recent lab results. Patient is currently waiting for further evaluation and treatment recommendations by Dr. Montoya in medicine. Following her recent lab results , he may plan to treat the patient for possible gouty arthritis. We'll continue to follow patient. 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 At this time she is encouraged to work with therapy along with the assistance of a walker to increase her mobility and ambulation. We are not currently planning for further imaging as we do not feel this imaging is currently indicated or would change her plan of care. 2. Dr. Montoya in medicine will continue following the patient 3. Dr. Palomares in Pulmonology will continue to follow the patient 4. Patient has been discussed in detail with Dr. Sabino Ibanez and he agrees with this plan
[2017-02-06] MEDS ORDERED: LEVOFLOXACIN 750MG-D5W PMX 750 MG in DEXTROSE/WATER 1 150ML.BAG IVPB SCH (09:00)
--- NOTE | 2017-02-06 09:50 | P.PN ---
Subjective This is a pleasant 81-year-old white female my practice. Apparently 24 hours ago she began experiencing increasing confusion. Her daughter mentioned she had symptoms of a UTI previously to this. She was brought to the emergency room after being confused and falling down. She was diagnosed with sepsis secondary to UTI. She had fluid rehydration, but remained hypotensive and was admitted to the intensive care unit. She had had levothyroid originally. It is now been discontinued. Her mentation currently is much improved from24 hours ago. Concepcion has no significantly to this time other than left ankle pain. She denies any trauma. She lives at home with her . She uses a walker and/or cane for ambulation. 02/06/2017: Overnight Concepcion had a fever with MAXIMUM TEMPERATURE of 100.1. These Fahrenheit. She denies any significant complaints today though. She has had a bowel movement. She is eating somewhat, she denies any nausea or vomiting today. sHe feels better. He felt it seen her regarding her ankle. They're recommending conservative treatment. Her uric acid level was elevated. Objective - Vital Signs Vital signs: Vital Signs Temp 98.1 F 02/06/17 07:00 Pulse 99 02/06/17 07:00 Resp 18 02/06/17 07:00 BP 122/56 02/06/17 07:00 Pulse Ox 98 02/06/17 07:00 Intake & Output 02/05/17 02/06/17 02/06/17 18:59 06:59 18:59 Intake Total 1428.064 8922 Output Total 922 101 Balance 077.649 7062 Weight 116 kg 116 kg Intake: IV 793 50 Aztreonam 1 gm In Sodium 100 50 Chloride 0.9% 50 ml @ 50 mls/hr IVPB Q8HR [facility] Rx#: [id number] Sodium Chloride 0.9% 1, 693 000 ml @ 50 mls/hr IV . Q20H [facility] Rx#:[id number] Intake, IV Titration 235.937 915 Amount Norepinephrin 4 mg-0.9% 235.937 Ns Pmx 4 mg In 250 ml @ Titrate IV .Q0M [facility] Rx#: [id number] Sodium Chloride 0.9% 1, 915 000 ml @ 50 mls/hr IV . Q20H [facility] Rx#:[id number] Oral 480 200 Output: Urine 920 100 Stool 2 1 Other: Voiding Method Indwelling Catheter Indwelling Catheter # Voids 2 # Bowel Movements 1 - Exam GENERAL: well-nourished and in no acute distress. NECK: Normal range of motion, supple without lymphadenopathy or JVD, no thyromegaly LUNGS: Breath sounds clear to auscultation bilaterally and equal. No wheezes rales or rhonchi. HEART: Regular rate and rhythm without rubs or gallops.S1S2 Normal, Systolic murmur, heard best over the right sternal border ABDOMEN: Soft, nontender, normoactive bowel sounds. No guarding, no rebound. No masses appreciated. Stented due to truncal obesity EXTREMITIES: Left ankle is edematous and painful to palpation compared to the right. There is no erythema. Range of motion increases her pain. NEUROLOGICAL: Cranial nerves II through XII grossly intact. Normal speech, normal gait. AAO 3 PSYCH: Normal mood, normal affect. SKIN: Warm, Dry, normal turgor, no rashes or lesions noted - Labs CBC & Chem 7: 02/06/17 07:35 02/06/17 07:35 Labs: Abnormal Lab Results - Last 24 Hours (Table) 02/05/17 02/05/17 02/05/17 Range/Units 04:32 04:32 12:34 RBC (3.80-5.40) m/uL Hgb (11.4-16.0) gm/dL Hct (34.0-46.0) % Chloride (98-107) mmol/L Glucose (74-99) mg/dL POC Glucose (mg/dL) 145 H (75-99) mg/dL Hemoglobin A1c 6.5 H (4.2-6.1) % Uric Acid 8.4 H (3.7-7.4) mg/dL Calcium (8.4-10.2) mg/dL 02/05/17 02/05/17 02/06/17 Range/Units 16:48 20:04 07:12 RBC (3.80-5.40) m/uL Hgb (11.4-16.0) gm/dL Hct (34.0-46.0) % Chloride (98-107) mmol/L Glucose (74-99) mg/dL POC Glucose (mg/dL) 144 H 165 H 153 H (75-99) mg/dL Hemoglobin A1c (4.2-6.1) % Uric Acid (3.7-7.4) mg/dL Calcium (8.4-10.2) mg/dL 02/06/17 02/06/17 Range/Units 07:35 07:35 RBC 3.37 L (3.80-5.40) m/uL Hgb 9.3 L (11.4-16.0) gm/dL Hct 29.5 L (34.0-46.0) % Chloride 110 H (98-107) mmol/L Glucose 155 H (74-99) mg/dL POC Glucose (mg/dL) (75-99) mg/dL Hemoglobin A1c (4.2-6.1) % Uric Acid (3.7-7.4) mg/dL Calcium 8.0 L (8.4-10.2) mg/dL Microbiology - Last 24 Hours (Table) 02/04/17 16:10 Urine Culture - Preliminary Urine,Catheterized Gram Neg Bacilli 02/04/17 15:43 Blood Culture - Preliminary Blood No Growth after 24 hours Assessment and Plan Plan: sepsis due to underlying infection: Possible UTI versus occult pneumonia: Micro are growing gram-negative bacilli in the urine. continue Aztreonam hypotension: secondary to above, recovered and the patient is currently off pressors leukocytosis, resolved secondary to above, Continue to monitor anemia: will monitor, most likely due to chroniuc disease diabetes mellitus: Accu-Cheks before meals and at bedtime Humalog scale, Restart metformin and Januvia COPD: on Qvar and 1, continue to monitor hyperlipidemia: Continue Zetia Left ankle with abnormal uric acid/osteoarthritis: Her physical therapy for her and start her on colchicine 0.6 mg twice a day hypertension: continue metoprolol, Lasix, when necessary nitroglycerin chronic neck & back pain h/o Lumbar Lami: controlled continue Stone for pain cardiac murmur: Continue to monitor, may follow up with 2-D echo SHe is much improved from her admission. I'll reevaluate in the next 24 hours.
[2017-02-06] MEDS: SODIUM CHLORIDE 0.9% 1,000 ML IV SCH (11:49)
[2017-02-06 11:57] LABS: Glucose,Whole Blood 113 mg/dL (75-99)
--- NOTE | 2017-02-06 12:23 | P.PN ---
Subjective A 81-year-old female patient who presented yesterday to the emergency department for profound weakness. This started 24 hours prior to her presentation. The patient was too weak to get out of bed. She was unable to stand up on her own. She was unable to ambulate. She had to episodes of fall without any major skeletal injuries. She was complaining of chills. She was also told to have a urinary tract infection, although she did not receive any treatment. No nausea. No vomiting. No abdominal pain. No respiratory distress. No cough or sputum production. The white cell count was 17. The patient had no significant electrode disturbance of and some mild non-anion gap metabolic acidosis. Lactic acid level was at 2.5 at the time of admission. The patient received a total of 4 L of IV fluid. She arrived to the ICU hypotensive and at that point she was started on pressors and she required pressors for a total of 12 hours and this morning she is off pressors. She is doing well. She is conversing and is following commands and answering questions appropriately. Her urinalysis is showing 8 WBCs and many bacteria. Blood cultures of been sent and the results are still pending for now. She is on a combination of aztreonam and Levaquin for now. The initial chest x-ray from yesterday was nonspecific. Today's chest x-ray is revealing a right lower lobe pulmonary infiltrates. She is also complaining of foot pain and this may be attributed to the fall and x-rays have been sent. This is her left foot. The patient is seen again today 02/06/2017 in follow-up on the regular medical floor. She is awake and alert in no acute distress. She denies any worsening shortness of breath, cough or congestion. Her only complaint is that of continued left foot pain. The x-rays were negative. Chest x-ray did reveal a right lower lobe infiltrate. Her urine culture is also positive for gram- negative bacilli. She is currently on aztreonam and Levaquin. She has been afebrile. No leukocytosis. She is maintaining good O2 saturations in the upper 90s on room air. Hemodynamically stable. Objective - Vital Signs Vital signs: Vital Signs Temp 98.1 F 02/06/17 07:00 Pulse 99 02/06/17 08:00 Resp 18 02/06/17 08:00 BP 122/56 02/06/17 07:00 Pulse Ox 98 02/06/17 07:00 Intake & Output 02/05/17 02/06/17 02/06/17 18:59 06:59 18:59 Intake Total 5608.082 5583 Output Total 922 101 1 Balance 584.226 4962 -1 Weight 116 kg 116 kg 116 kg Intake: IV 793 50 Aztreonam 1 gm In Sodium 100 50 Chloride 0.9% 50 ml @ 50 mls/hr IVPB Q8HR [facility] Rx#: [id number] Sodium Chloride 0.9% 1, 693 000 ml @ 50 mls/hr IV . Q20H [facility] Rx#:[id number] Intake, IV Titration 235.937 915 Amount Norepinephrin 4 mg-0.9% 235.937 Ns Pmx 4 mg In 250 ml @ Titrate IV .Q0M [facility] Rx#: [id number] Sodium Chloride 0.9% 1, 915 000 ml @ 50 mls/hr IV . Q20H [facility] Rx#:[id number] Oral 480 200 Output: Urine 920 100 Stool 2 1 1 Other: Voiding Method Indwelling Catheter Indwelling Catheter Indwelling Catheter # Voids 2 2 # Bowel Movements 1 - Exam The patient appeared well nourished and normally developed. The patient is morbidly obese and she is calm and comfortable. No signs of any respiratory distress. Vital signs as documented. Head exam is unremarkable. No scleral icterus or corneal arcus noted. Neck is without jugular venous distension, thyromegaly, or carotid bruits. Carotid upstrokes are brisk bilaterally. Lungs are clear to auscultation and percussion. Cardiac exam reveals the PMI to be normally sized and situated. Rhythm is regular. First and second heart sounds normal. There is a systolic ejection murmur grade 4/6 heard throughout the precordium mainly in the left lateral sternal border, rubs or gallops. Abdominal exam reveals normal bowel sounds, no masses, no organomegaly and no aortic enlargement. Extremities are nonedematous and both femoral and pedal pulses are normal. - Labs CBC & Chem 7: 02/06/17 07:35 02/06/17 07:35 Labs: Abnormal Lab Results - Last 24 Hours (Table) 02/05/17 02/05/17 02/05/17 Range/Units 04:32 12:34 16:48 RBC (3.80-5.40) m/uL Hgb (11.4-16.0) gm/dL Hct (34.0-46.0) % Chloride (98-107) mmol/L Glucose (74-99) mg/dL POC Glucose (mg/dL) 145 H 144 H (75-99) mg/dL Hemoglobin A1c 6.5 H (4.2-6.1) % Calcium (8.4-10.2) mg/dL 02/05/17 02/06/17 02/06/17 Range/Units 20:04 07:12 07:35 RBC 3.37 L (3.80-5.40) m/uL Hgb 9.3 L (11.4-16.0) gm/dL Hct 29.5 L (34.0-46.0) % Chloride (98-107) mmol/L Glucose (74-99) mg/dL POC Glucose (mg/dL) 165 H 153 H (75-99) mg/dL Hemoglobin A1c (4.2-6.1) % Calcium (8.4-10.2) mg/dL 02/06/17 02/06/17 Range/Units 07:35 11:37 RBC (3.80-5.40) m/uL Hgb (11.4-16.0) gm/dL Hct (34.0-46.0) % Chloride 110 H (98-107) mmol/L Glucose 155 H (74-99) mg/dL POC Glucose (mg/dL) 113 H (75-99) mg/dL Hemoglobin A1c (4.2-6.1) % Calcium 8.0 L (8.4-10.2) mg/dL Microbiology - Last 24 Hours (Table) 02/04/17 16:10 Urine Culture - Preliminary Urine,Catheterized Gram Neg Bacilli 02/04/17 15:43 Blood Culture - Preliminary Blood No Growth after 24 hours Assessment and Plan Plan: Assessment 1 sepsis/septic shock, resuscitated adequately with fluids and pressors and antibiotics. Likely secondary to a right lower lobe pneumonia. Her urine culture is revealing gram-negative bacilli as well. 2 hypotension secondary to above, recovered and the patient is currently off pressors 3 leukocytosis secondary to above the improved. 4 mild lactic acidosis 5 morbid obesity 6 diabetes mellitus maintained on oral hypoglycemics 7 COPD on Qvar and albuterol rescue inhaler necessary basis 8 hyperlipidemia 9 osteoarthritis 10 hypertension 11 chronic back pain with a previous laminectomy and decompression involving the lumbosacral spine 12 chronic neck pain 13 cardiac murmur with a previous echocardiogram from 2014 showing a preserved LV function Plan The patient was seen and evaluated by Dr. Palomares. We'll continue with her current antibiotics and bronchodilators for now. He maintains on subcutaneous heparin for DVT prophylaxis. We will continue to follow and make further recommendations based on her clinical status.
[2017-02-06 17:44] LABS: Glucose,Whole Blood 118 mg/dL (75-99)
[2017-02-06 20:31] LABS: Glucose,Whole Blood 135 mg/dL (75-99)
[2017-02-06] MEDS: ATORVASTATIN 40 MG TAB PO SCH (21:55)
[2017-02-06] MEDS: AMITRIPTYLINE HCL 50 MG TAB PO SCH (21:55)
[2017-02-07] MEDS: AZTREONAM 1 GM in SODIUM CHLORIDE 0.9% 50 ML IVPB SCH ×3 (00:22→17:39)
[2017-02-07] MEDS: HEPARIN SODIUM,PORCINE 5,000 UNIT/ML 1 ML VIAL SQ SCH ×3 (00:22→17:46)
[2017-02-07] MEDS: SODIUM CHLORIDE 0.9% 1,000 ML IV SCH (05:42)
[2017-02-07 07:39] LABS: Glucose,Whole Blood 143 mg/dL (75-99)
--- NOTE | 2017-02-07 08:03 | XR ---
EXAMINATION TYPE: XR chest 2V DATE OF EXAM: 02/07/2017 COMPARISON: 02/06/2017 TECHNIQUE: PA and lateral views submitted. HISTORY: COPD FINDINGS: There is persistent and stable appearing consolidation involving the right lower lobe and small effus ion. Hypertrophic and degenerative change of the spine. Heart size stable. Arthropathy of the shoulde rs with previous surgery in the left. No pneumothorax. Mediastinum unchanged. IMPRESSION: 1. Stable right lower lobe infiltrate.
[2017-02-07] MEDS: INSULIN LISPRO (humaLOG) 300 UNIT/3 ML VIAL SQ SCH ×4 (08:09→20:23)
[2017-02-07] MEDS: EZETIMIBE 10 MG TAB PO SCH (08:12)
[2017-02-07] MEDS: metFORMIN 500 MG TAB PO SCH ×2 (08:12→17:47)
[2017-02-07] MEDS: PANTOPRAZOLE 40 MG TABLET PO SCH (08:12)
[2017-02-07] MEDS: FUROSEMIDE 40 MG TAB PO SCH (08:12)
[2017-02-07] MEDS: GABAPENTIN 300 MG CAP PO SCH (08:12)
[2017-02-07] MEDS: METOPROLOL TARTRATE 25 MG TAB PO SCH ×2 (08:13→19:32)
[2017-02-07] MEDS: LINAGLIPTIN 5 MG TABLET PO SCH (08:13)
[2017-02-07 08:27] LABS: Basophils % (A) 0 %; CH 27.7; CHCM 31.3; Eosinophils # (A) 0.3 k/uL (0-0.7); Eosinophils % (A) 3 %; HCT 30.4 % (34.0-46.0); HDW 2.73; HGB 9.4 gm/dL (11.4-16.0); Hypochromasia Slight; Luc % (Auto) 2; Lymphocytes # (A) 1.9 k/uL (1.0-4.8); Lymphocytes % (A) 23 %; MCH 27.5 pg (25.0-35.0); MCHC 30.8 g/dL (31.0-37.0); MCV 89.1 fL (80.0-100.0); Mean Platelet Volume 7.4; Monocytes # (A) 0.6 k/uL (0-1.0); Monocytes % (A) 7 %; Neutrophils # (A) 5.4 k/uL (1.3-7.7); Neutrophils % (A) 65 %; RBC 3.41 m/uL (3.80-5.40); RDW 14.5 % (11.5-15.5); WBC 8.4 k/uL (3.8-10.6); WBC (Perox) 8.55
[2017-02-07 08:53] LABS: Anion Gap 9 mmol/L; Blood Urea Nitrogen 11 mg/dL (7-17); Carbon Dioxide 23 mmol/L (22-30); Chloride 107 mmol/L (98-107); Glucose 148 mg/dL (74-99); Magnesium 1.6 mg/dL (1.6-2.3); Non-African American GFR(MDRD) >60 (>60 ml/min/1.73 sqM); Potassium 3.8 mmol/L (3.5-5.1); Sodium 139 mmol/L (137-145)
--- NOTE | 2017-02-07 11:47 | P.PN ---
Progress Note - Text Patient is a very pleasant 81-year-old female who is seen and examined at bedside follow-up evaluation for left ankle pain and swelling. Since being seen and examined yesterday, her symptoms have not significantly changed. She was seen by Dr. Montoya in medicine who has started her on colchicine for her elevated uric. Patient states she still unable to bear weight on the left lower extremity. She has had improvement in range of motion of the left knee but continues to have significant difficulty with dorsiflexion and plantar flexion of the left ankle due to increased pain. She is currently resting comfortably in bed. Again today, she denies injury to her left ankle from her 2 recent falls. She continues to experience significant pain with even light palpation over the entire left ankle. She has pain over the left foot, toes and lower extremity below the knee as well. She cannot tolerate pneumatic cuffs over the left lower extremity due to pain in the lower extremity. She is able to wear socks without difficulty which she has previously unable to do on the left lower extremity. She denies any right lower extremity pain. Patient is currently being seen and examined and treated by Dr. Montoya with further recommendations to follow. Physical Exam: Patient is awake, alert, and oriented 3; patient is sitting upright at the bedside without difficulty Vital signs stable Good chest excursion with deep inspiration and expiration Abdomen soft nontender No signs or symptoms of DVT; no calf pain Significant swelling over the left ankle most significant laterally Examination of the left ankle shows no evidence of erythema; No obvious sign of infection Further examination of the left ankle does show bruising at the posterior lateral aspect of the ankle extending to the foot that was not visible previously Significant pain with palpation of the entire left ankle Pain with palpation over the top of the foot, all toes of the left foot, and of the left lower extremity below the knee to the ankle Significant difficulty with range of motion of the left ankle including plantarflexion and dorsiflexion Adequate range of motion of the right lower extremity out significant difficulty Skin swelling over the left ankle most significant laterally Patient is able to perform range of motion of the left knee easier today as compared yesterday Pertinent studies: X-rays the left ankle and foot: No sign of distal fibula or distal tibial fracture; no evidence of ankle mortise widening; evidence of significant swelling of the left ankle most significant laterally 02/05/2017: WBC: 17.1 Neutrophils: 12.1 Uric Acid 8.4 02/06/2017: WBC 10.3 Neutrophils 7.0 02/07/2017: WBC 8.4 Neutrophils 5.4 Assessment: Left ankle pain/swelling S/P fall x2 Urinary tract infection Weakness Septic Shock Confusion - Resolved Possible gouty arthritis of the left ankle Plan: 1. After further examination of the patient today, discussion with Dr. Sabino Ibanez, and discussion with the patient, I will currently plan to order an MRI of the left ankle for further evaluation. Her symptoms have not had significant improvement since being seen exam yesterday. She does have evidence of posterior lateral bruising to the left ankle which was not present previously. She is still unable to bear weight on the left lower extremity due to pain. She has been started on colchicine without significant improvement of her left ankle pain. We will currently plan to order an MRI of the left ankle for further evaluation and we'll determine an appropriate plan of care based on those MRI results. Previous x-ray imaging was reviewed by myself and Dr. Sabino Ibanez and did not show evidence of acute fracture at the left ankle or evidence of ankle mortis widening. I discussed with the patient she may continue to try to increase mobility and ambulation with the assistance of her walker while avoiding weightbearing on the left lower extremity. 2. Dr. Montoya in medicine will continue following the patient 3. Dr. Palomares in Pulmonology will continue to follow the patient 4. Patient has been discussed in detail with Dr. Sabino Ibanez and he agrees with this plan
[2017-02-07 11:57] LABS: Glucose,Whole Blood 121 mg/dL (75-99)
--- NOTE | 2017-02-07 13:21 | P.PN ---
Subjective This is a pleasant 81-year-old white female my practice. Apparently 24 hours ago she began experiencing increasing confusion. Her daughter mentioned she had symptoms of a UTI previously to this. She was brought to the emergency room after being confused and falling down. She was diagnosed with sepsis secondary to UTI. She had fluid rehydration, but remained hypotensive and was admitted to the intensive care unit. She had had levothyroid originally. It is now been discontinued. Her mentation currently is much improved from24 hours ago. Concepcion has no significantly to this time other than left ankle pain. She denies any trauma. She lives at home with her . She uses a walker and/or cane for ambulation. 02/06/2017: Overnight Concepcion had a fever with MAXIMUM TEMPERATURE of 100.1. These Fahrenheit. She denies any significant complaints today though. She has had a bowel movement. She is eating somewhat, she denies any nausea or vomiting today. sHe feels better. He felt it seen her regarding her ankle. They're recommending conservative treatment. Her uric acid level was elevated. 02/07/2017: Patient continues to feel improved. She has been afebrile the past 24 hours. She had a bowel movement today. The nurse reports telemetry in the past and shown A. fib versus PACs had requested discontinuation telemetry. She has no history of atrial fibrillation. A cardiology consultation has been requested and is pending. Ulcers are positive for Escherichia coli. Multiple susceptibilities. Continue on Levaquin. Objective - Vital Signs Vital signs: Vital Signs Temp 97.1 F L 02/07/17 07:00 Pulse 117 H 02/07/17 08:00 Resp 19 02/07/17 08:00 BP 134/62 02/07/17 07:00 Pulse Ox 98 02/07/17 07:00 Intake & Output 02/06/17 02/07/17 02/07/17 18:59 06:59 18:59 Intake Total 815 976 Output Total 6 5 100 Balance 809 971 -100 Weight 116 kg 116 kg Intake: IV 475 756 Aztreonam 1 gm In Sodium 100 50 Chloride 0.9% 50 ml @ 50 mls/hr IVPB Q8HR [facility] Rx#: [id number] Sodium Chloride 0.9% 1, 375 706 000 ml @ 50 mls/hr IV . Q20H [facility] Rx#:[id number] Oral 340 220 Output: Urine 100 Stool 6 5 Other: Voiding Method Indwelling Catheter Indwelling Catheter Indwelling Catheter # Voids 7 6 1 # Bowel Movements 4 1 1 - Exam GENERAL: well-nourished and in no acute distress. NECK: Normal range of motion, supple without lymphadenopathy or JVD, no thyromegaly LUNGS: Breath sounds clear to auscultation bilaterally and equal. No wheezes rales or rhonchi. HEART: Regular rate and rhythm without rubs or gallops.S1S2 Normal, Systolic murmur, heard best over the right sternal border ABDOMEN: Soft, nontender, normoactive bowel sounds. No guarding, no rebound. No masses appreciated. Stented due to truncal obesity EXTREMITIES: Left ankle is edematous and painful to palpation compared to the right. There is no erythema. Range of motion increases her pain. NEUROLOGICAL: Cranial nerves II through XII grossly intact. Normal speech, normal gait. AAO 3 PSYCH: Normal mood, normal affect. SKIN: Warm, Dry, normal turgor, no rashes or lesions noted - Labs CBC & Chem 7: 02/07/17 07:32 02/07/17 07:32 Labs: Abnormal Lab Results - Last 24 Hours (Table) 02/06/17 02/06/17 02/07/17 Range/Units 17:25 20:30 07:31 RBC (3.80-5.40) m/uL Hgb (11.4-16.0) gm/dL Hct (34.0-46.0) % MCHC (31.0-37.0) g/dL Glucose (74-99) mg/dL POC Glucose (mg/dL) 118 H 135 H 143 H (75-99) mg/dL Calcium (8.4-10.2) mg/dL 02/07/17 02/07/17 02/07/17 Range/Units 07:32 07:32 11:54 RBC 3.41 L (3.80-5.40) m/uL Hgb 9.4 L (11.4-16.0) gm/dL Hct 30.4 L (34.0-46.0) % MCHC 30.8 L (31.0-37.0) g/dL Glucose 148 H (74-99) mg/dL POC Glucose (mg/dL) 121 H (75-99) mg/dL Calcium 8.0 L (8.4-10.2) mg/dL Microbiology - Last 24 Hours (Table) 02/04/17 15:43 Blood Culture - Preliminary Blood No Growth after 48 hours 02/04/17 16:10 Urine Culture - Preliminary Urine,Catheterized Escherichia coli Assessment and Plan Plan: sepsis due to underlying infection: Possible UTI versus occult pneumonia: Is positive for Escherichia coli, continue Levaquin. hypotension: secondary to above, resolved and the patient is currently off pressors leukocytosis, resolved secondary to above, Continue to monitor anemia: will monitor, most likely due to chroniuc disease diabetes mellitus: Accu-Cheks before meals and at bedtime Humalog scale, continue metformin and Januvia COPD: on Qvar and 1, continue to monitor hyperlipidemia: Continue Zetia Left ankle with abnormal uric acid/osteoarthritis: Ortho is following, physical therapy for her and start her on colchicine 0.6 mg twice a day hypertension: continue metoprolol, Lasix, when necessary nitroglycerin chronic neck & back pain h/o Lumbar Lami: controlled continue [place] for pain cardiac murmur: Continue to monitor, may follow up with 2-D echo SHe is much improved from her admission. I'll reevaluate in the next 24 hours.
[2017-02-07] MEDS ORDERED: guaiFENesin SYRUP 100MG/5ML 200 MG/10 ML CUP PO PRN (13:31)
[2017-02-07] MEDS: LEVOFLOXACIN 750 MG TAB PO SCH (13:33)
[2017-02-07] MEDS: COLCHICINE 0.6 MG TAB PO SCH ×2 (13:33→20:24)
--- NOTE | 2017-02-07 15:22 | P.PN ---
Subjective A 81-year-old female patient who presented yesterday to the emergency department for profound weakness. This started 24 hours prior to her presentation. The patient was too weak to get out of bed. She was unable to stand up on her own. She was unable to ambulate. She had to episodes of fall without any major skeletal injuries. She was complaining of chills. She was also told to have a urinary tract infection, although she did not receive any treatment. No nausea. No vomiting. No abdominal pain. No respiratory distress. No cough or sputum production. The white cell count was 17. The patient had no significant electrode disturbance of and some mild non-anion gap metabolic acidosis. Lactic acid level was at 2.5 at the time of admission. The patient received a total of 4 L of IV fluid. She arrived to the ICU hypotensive and at that point she was started on pressors and she required pressors for a total of 12 hours and this morning she is off pressors. She is doing well. She is conversing and is following commands and answering questions appropriately. Her urinalysis is showing 8 WBCs and many bacteria. Blood cultures of been sent and the results are still pending for now. She is on a combination of aztreonam and Levaquin for now. The initial chest x-ray from yesterday was nonspecific. Today's chest x-ray is revealing a right lower lobe pulmonary infiltrates. She is also complaining of foot pain and this may be attributed to the fall and x-rays have been sent. This is her left foot. The patient is seen again today 02/06/2017 in follow-up on the regular medical floor. She is awake and alert in no acute distress. She denies any worsening shortness of breath, cough or congestion. Her only complaint is that of continued left foot pain. The x-rays were negative. Chest x-ray did reveal a right lower lobe infiltrate. Her urine culture is also positive for gram- negative bacilli. She is currently on aztreonam and Levaquin. She has been afebrile. No leukocytosis. She is maintaining good O2 saturations in the upper 90s on room air. Hemodynamically stable. The patient is seen again today 02/07/2017 in follow-up on the regular medical floor. She remains awake and alert in no acute distress. She is breathing better today as compared to yesterday. Today's chest x-ray shows improvement in the consolidation in the right lower lobe with some residual changes. He is maintaining good O2 saturations in the upper 90s on room air. She remains afebrile. Hemodynamically stable. She is continued on aztreonam and Levaquin. Her urine is positive for E. coli. Objective - Vital Signs Vital signs: Vital Signs Temp 98.4 F 02/07/17 14:56 Pulse 123 H 02/07/17 14:56 Resp 20 02/07/17 14:56 BP 142/65 02/07/17 14:56 Pulse Ox 98 02/07/17 14:56 Intake & Output 02/06/17 02/07/17 02/07/17 18:59 06:59 18:59 Intake Total 815 976 Output Total 6 5 100 Balance 809 971 -100 Weight 116 kg 116 kg Intake: IV 475 756 Aztreonam 1 gm In Sodium 100 50 Chloride 0.9% 50 ml @ 50 mls/hr IVPB Q8HR [facility] Rx#: [id number] Sodium Chloride 0.9% 1, 375 706 000 ml @ 50 mls/hr IV . Q20H [facility] Rx#:[id number] Oral 340 220 Output: Urine 100 Stool 6 5 Other: Voiding Method Indwelling Catheter Indwelling Catheter Indwelling Catheter # Voids 7 6 2 # Bowel Movements 4 1 1 - Exam The patient appeared well nourished and normally developed. The patient is morbidly obese and she is calm and comfortable. No signs of any respiratory distress. Vital signs as documented. Head exam is unremarkable. No scleral icterus or corneal arcus noted. Neck is without jugular venous distension, thyromegaly, or carotid bruits. Carotid upstrokes are brisk bilaterally. Lungs are clear to auscultation and percussion. Cardiac exam reveals the PMI to be normally sized and situated. Rhythm is regular. First and second heart sounds normal. There is a systolic ejection murmur grade 4/6 heard throughout the precordium mainly in the left lateral sternal border, rubs or gallops. Abdominal exam reveals normal bowel sounds, no masses, no organomegaly and no aortic enlargement. Extremities are nonedematous and both femoral and pedal pulses are normal. - Labs CBC & Chem 7: 02/07/17 07:32 02/07/17 07:32 Labs: Abnormal Lab Results - Last 24 Hours (Table) 02/06/17 02/06/17 02/07/17 Range/Units 17:25 20:30 07:31 RBC (3.80-5.40) m/uL Hgb (11.4-16.0) gm/dL Hct (34.0-46.0) % MCHC (31.0-37.0) g/dL Glucose (74-99) mg/dL POC Glucose (mg/dL) 118 H 135 H 143 H (75-99) mg/dL Calcium (8.4-10.2) mg/dL 02/07/17 02/07/17 02/07/17 Range/Units 07:32 07:32 11:54 RBC 3.41 L (3.80-5.40) m/uL Hgb 9.4 L (11.4-16.0) gm/dL Hct 30.4 L (34.0-46.0) % MCHC 30.8 L (31.0-37.0) g/dL Glucose 148 H (74-99) mg/dL POC Glucose (mg/dL) 121 H (75-99) mg/dL Calcium 8.0 L (8.4-10.2) mg/dL Microbiology - Last 24 Hours (Table) 02/04/17 15:43 Blood Culture - Preliminary Blood No Growth after 48 hours 02/04/17 16:10 Urine Culture - Preliminary Urine,Catheterized Escherichia coli Assessment and Plan Plan: Assessment 1 sepsis/septic shock, resuscitated adequately with fluids and pressors and antibiotics. Likely secondary to a right lower lobe pneumonia. Her urine culture is revealing gram-negative bacilli as well. 2 hypotension secondary to above, recovered and the patient is currently off pressors 3 leukocytosis secondary to above the improved. 4 mild lactic acidosis 5 morbid obesity 6 diabetes mellitus maintained on oral hypoglycemics 7 COPD on Qvar and albuterol rescue inhaler necessary basis 8 hyperlipidemia 9 osteoarthritis 10 hypertension 11 chronic back pain with a previous laminectomy and decompression involving the lumbosacral spine 12 chronic neck pain 13 cardiac murmur with a previous echocardiogram from 2015 showing a preserved LV function Plan The patient was seen and evaluated by Dr. Palomares. Her chest x-ray and labs were reviewed. We'll continue with her current antibiotics and bronchodilators for now. We'll increase her activity as tolerated. We will follow the patient on as-needed basis.
[2017-02-07 17:24] LABS: Glucose,Whole Blood 105 mg/dL (75-99)
[2017-02-07 20:18] LABS: Glucose,Whole Blood 127 mg/dL (75-99)
[2017-02-07] MEDS: ATORVASTATIN 40 MG TAB PO SCH (20:24)
[2017-02-07] MEDS: AMITRIPTYLINE HCL 50 MG TAB PO SCH (20:24)
[2017-02-07 21:20] LABS: Appearance,Urine Clear (Clear); Bacteria,Urine Rare /hpf; Bilirubin,Urine Negative (Negative); Glucose,Urine (UA) Negative (Negative); Ketones,Urine Negative (Negative); Leukocyte Esterase,Urine Small (Negative); Nitrite,Urine Negative (Negative); PH, Urine 5.5 (5.0-8.0); Particle Count 468; Protein,Urine Negative (Negative); RBC,Urine 1 /hpf (0-5); Specific Gravity,Urine 1.006 (1.001-1.035); Squamous Epithelial Cell,Urine <1 /hpf (0-4); UA Billing (MACRO vs. MICRO) MICRO; Urobilinogen,Urine <2.0 mg/dL (<2.0); WBC,Urine 3 /hpf (0-5)
[2017-02-08] MEDS: HEPARIN SODIUM,PORCINE 5,000 UNIT/ML 1 ML VIAL SQ SCH ×4 (01:03→23:14)
[2017-02-08] MEDS: AZTREONAM 1 GM in SODIUM CHLORIDE 0.9% 50 ML IVPB SCH ×4 (01:03→23:13)
[2017-02-08] MEDS: METOPROLOL TARTRATE 50 MG TAB PO SCH ×3 (04:09→22:35)
[2017-02-08] MEDS: SODIUM CHLORIDE 0.9% 1,000 ML IV SCH ×2 (07:09→22:38)
[2017-02-08] MEDS: INSULIN LISPRO (humaLOG) 300 UNIT/3 ML VIAL SQ SCH ×4 (07:54→22:34)
[2017-02-08 07:56] LABS: Glucose,Whole Blood 136 mg/dL (75-99)
[2017-02-08] MEDS: metFORMIN 500 MG TAB PO SCH ×2 (07:58→18:13)
[2017-02-08] MEDS: LINAGLIPTIN 5 MG TABLET PO SCH (07:58)
[2017-02-08] MEDS: FUROSEMIDE 40 MG TAB PO SCH (07:58)
[2017-02-08] MEDS: EZETIMIBE 10 MG TAB PO SCH (07:58)
[2017-02-08] MEDS: PANTOPRAZOLE 40 MG TABLET PO SCH (07:58)
[2017-02-08] MEDS: GABAPENTIN 300 MG CAP PO SCH (07:58)
[2017-02-08] MEDS: COLCHICINE 0.6 MG TAB PO SCH (07:59)
[2017-02-08 08:08] LABS: Basophils % (A) 0 %; CH 26.9; CHCM 31.4; Eosinophils # (A) 0.3 k/uL (0-0.7); Eosinophils % (A) 4 %; HCT 30.3 % (34.0-46.0); HDW 2.88; HGB 9.7 gm/dL (11.4-16.0); Hypochromasia Slight; Luc # (Auto) 0.24; Luc % (Auto) 3; Lymphocytes # (A) 2.2 k/uL (1.0-4.8); Lymphocytes % (A) 28 %; MCH 27.5 pg (25.0-35.0); MCHC 31.9 g/dL (31.0-37.0); MCV 86.1 fL (80.0-100.0); Mean Platelet Volume 6.5; Monocytes # (A) 0.7 k/uL (0-1.0); Monocytes % (A) 8 %; Neutrophils # (A) 4.6 k/uL (1.3-7.7); Neutrophils % (A) 57 %; RBC 3.52 m/uL (3.80-5.40); WBC (Perox) 8.47
[2017-02-08 08:20] LABS: Anion Gap 11 mmol/L; Blood Urea Nitrogen 11 mg/dL (7-17); Calcium 8.2 mg/dL (8.4-10.2); Carbon Dioxide 23 mmol/L (22-30); Chloride 107 mmol/L (98-107); Glucose 133 mg/dL (74-99); Magnesium 1.6 mg/dL (1.6-2.3); Non-African American GFR(MDRD) >60 (>60 ml/min/1.73 sqM); Phosphorous 3.3 mg/dL (2.5-4.5); Potassium 3.6 mmol/L (3.5-5.1); Sodium 141 mmol/L (137-145)
[2017-02-08] MEDS ORDERED: LEVOFLOXACIN 750 MG TAB PO SCH (09:00)
--- NOTE | 2017-02-08 09:41 | P.PN ---
Subjective Principal diagnosis: This is a pleasant 81-year-old female who is admitted for sepsis. Orthopedics was consulted due to left ankle pain. Patient states she has history of falls but is unsure what caused the left ankle pain. Patient states she feels the pain in the left ankle has improved slightly today. Patient denies any new symptoms and states she has remained nonweightbearing to the left lower extremity. Patient states she has been using a walker for transfers. Patient was scheduled for an MRI this morning but this has been moved to this afternoon. Objective - Vital Signs Vital signs: Vital Signs Temp 98.3 F 02/08/17 07:00 Pulse 72 02/08/17 07:00 Resp 18 02/08/17 07:00 BP 145/65 02/08/17 07:00 Pulse Ox 98 02/08/17 07:00 Intake & Output 02/07/17 02/08/17 02/08/17 18:59 06:59 18:59 Intake Total 990 Output Total 101 1 Balance -101 989 Intake: IV 400 Sodium Chloride 0.9% 1, 400 000 ml @ 50 mls/hr IV . Q20H [facility] Rx#:[id number] Oral 590 Output: Urine 100 Stool 1 1 Other: Voiding Method Indwelling Catheter Bedside Commode # Voids 1 3 1 # Bowel Movements 1 1 - Exam On inspection of the left lower extremity there is swelling about the left ankle and foot. There is ecchymosis to the posterior lateral aspect of the left ankle. There is tenderness to palpation over the lateral aspect of the left ankle and generalized tenderness to palpation of the left foot. There is no erythema or warmth. Patient has full range of motion of the left ankle and foot. Sensation is intact. Capillary refill is normal at less than 2 seconds. Calf is soft and nontender. Neurovascular status is intact. - Labs CBC & Chem 7: 02/08/17 07:38 02/08/17 07:38 Labs: Abnormal Lab Results - Last 24 Hours (Table) 02/07/17 02/07/17 02/07/17 Range/Units 11:54 17:15 20:16 RBC (3.80-5.40) m/uL Hgb (11.4-16.0) gm/dL Hct (34.0-46.0) % Glucose (74-99) mg/dL POC Glucose (mg/dL) 121 H 105 H 127 H (75-99) mg/dL Calcium (8.4-10.2) mg/dL Ur Leukocyte Esterase (Negative) Urine Bacteria (None) /hpf 02/07/17 02/08/17 02/08/17 Range/Units 20:50 07:37 07:38 RBC 3.52 L (3.80-5.40) m/uL Hgb 9.7 L (11.4-16.0) gm/dL Hct 30.3 L (34.0-46.0) % Glucose (74-99) mg/dL POC Glucose (mg/dL) 136 H (75-99) mg/dL Calcium (8.4-10.2) mg/dL Ur Leukocyte Esterase Small H (Negative) Urine Bacteria Rare H (None) /hpf 02/08/17 Range/Units 07:38 RBC (3.80-5.40) m/uL Hgb (11.4-16.0) gm/dL Hct (34.0-46.0) % Glucose 133 H (74-99) mg/dL POC Glucose (mg/dL) (75-99) mg/dL Calcium 8.2 L (8.4-10.2) mg/dL Ur Leukocyte Esterase (Negative) Urine Bacteria (None) /hpf Microbiology - Last 24 Hours (Table) 02/04/17 15:43 Blood Culture - Preliminary Blood No Growth after 72 hours 02/04/17 16:10 Urine Culture - Final Urine,Catheterized Escherichia coli Klebsiella pneumoniae Assessment and Plan (1) Left ankle pain Status: Acute (2) Left ankle swelling Status: Acute Plan: #1. Further recommendations pending MRI results of the left ankle. #2. Patient is to remain nonweightbearing to the left lower extremity and use walker for transfers. #3. Continue pain control, rest, ice,and elevation of the left lower extremity. #4. Will continue to follow the patient closely.
--- NOTE | 2017-02-08 10:21 | P.PN ---
Subjective This is a pleasant 81-year-old white female my practice. Apparently 24 hours ago she began experiencing increasing confusion. Her daughter mentioned she had symptoms of a UTI previously to this. She was brought to the emergency room after being confused and falling down. She was diagnosed with sepsis secondary to UTI. She had fluid rehydration, but remained hypotensive and was admitted to the intensive care unit. She had had levothyroid originally. It is now been discontinued. Her mentation currently is much improved from24 hours ago. Concepcion has no significantly to this time other than left ankle pain. She denies any trauma. She lives at home with her . She uses a walker and/or cane for ambulation. 02/06/2017: Overnight Concepcion had a fever with MAXIMUM TEMPERATURE of 100.1. These Fahrenheit. She denies any significant complaints today though. She has had a bowel movement. She is eating somewhat, she denies any nausea or vomiting today. sHe feels better. He felt it seen her regarding her ankle. They're recommending conservative treatment. Her uric acid level was elevated. 02/07/2017: Patient continues to feel improved. She has been afebrile the past 24 hours. She had a bowel movement today. The nurse reports telemetry in the past and shown A. fib versus PACs had requested discontinuation telemetry. She has no history of atrial fibrillation. A cardiology consultation has been requested and is pending. Ulcers are positive for Escherichia coli. Multiple susceptibilities. Continue on Levaquin. 02/08/2017: Patient feels okay today. She has an MRI scheduled this afternoon of her left ankle. Her left ankle pain continues. We discussed her going to [facility], and she is now wanting to go home. She has minimal pain. Pulmonology is following for her ammonia. She remains on aztreonam and Levaquin for both pneumonia and UTI. Objective - Vital Signs Vital signs: Vital Signs Temp 98.3 F 02/08/17 07:00 Pulse 72 02/08/17 07:00 Resp 18 02/08/17 07:00 BP 145/65 02/08/17 07:00 Pulse Ox 98 02/08/17 07:00 Intake & Output 02/07/17 02/08/17 02/08/17 18:59 06:59 18:59 Intake Total 990 Output Total 101 1 Balance -101 989 Intake: IV 400 Sodium Chloride 0.9% 1, 400 000 ml @ 50 mls/hr IV . Q20H [facility] Rx#:[id number] Oral 590 Output: Urine 100 Stool 1 1 Other: Voiding Method Indwelling Catheter Bedside Commode # Voids 1 3 1 # Bowel Movements 1 1 - Exam GENERAL: well-nourished and in no acute distress. NECK: Normal range of motion, supple without lymphadenopathy or JVD, no thyromegaly LUNGS: Breath sounds clear to auscultation bilaterally and equal. No wheezes rales or rhonchi. HEART: Regular rate and rhythm without rubs or gallops.S1S2 Normal, Systolic murmur, heard best over the right sternal border ABDOMEN: Soft, nontender, normoactive bowel sounds. No guarding, no rebound. No masses appreciated. Stented due to truncal obesity EXTREMITIES: Left ankle is edematous and painful to palpation compared to the right. There is no erythema. Range of motion increases her pain. NEUROLOGICAL: Cranial nerves II through XII grossly intact. Normal speech, normal gait. AAO 3 PSYCH: Normal mood, normal affect. SKIN: Warm, Dry, normal turgor, no rashes or lesions noted - Labs CBC & Chem 7: 02/08/17 07:38 02/08/17 07:38 Labs: Abnormal Lab Results - Last 24 Hours (Table) 02/07/17 02/07/17 02/07/17 Range/Units 11:54 17:15 20:16 RBC (3.80-5.40) m/uL Hgb (11.4-16.0) gm/dL Hct (34.0-46.0) % Glucose (74-99) mg/dL POC Glucose (mg/dL) 121 H 105 H 127 H (75-99) mg/dL Calcium (8.4-10.2) mg/dL Ur Leukocyte Esterase (Negative) Urine Bacteria (None) /hpf 02/07/17 02/08/17 02/08/17 Range/Units 20:50 07:37 07:38 RBC 3.52 L (3.80-5.40) m/uL Hgb 9.7 L (11.4-16.0) gm/dL Hct 30.3 L (34.0-46.0) % Glucose (74-99) mg/dL POC Glucose (mg/dL) 136 H (75-99) mg/dL Calcium (8.4-10.2) mg/dL Ur Leukocyte Esterase Small H (Negative) Urine Bacteria Rare H (None) /hpf 02/08/17 Range/Units 07:38 RBC (3.80-5.40) m/uL Hgb (11.4-16.0) gm/dL Hct (34.0-46.0) % Glucose 133 H (74-99) mg/dL POC Glucose (mg/dL) (75-99) mg/dL Calcium 8.2 L (8.4-10.2) mg/dL Ur Leukocyte Esterase (Negative) Urine Bacteria (None) /hpf Microbiology - Last 24 Hours (Table) 02/04/17 15:43 Blood Culture - Preliminary Blood No Growth after 72 hours 02/04/17 16:10 Urine Culture - Final Urine,Catheterized Escherichia coli Klebsiella pneumoniae Assessment and Plan Plan: sepsis due to underlying infection of UTI and pneumonia: Resolved Right lower lobe pneumonia: Being treated with aztreonam and Levaquin, improved. UTI: Positive for Escherichia coli on cultures, currently on Levaquin and aztreonam. hypotension: secondary to above, resolved and the patient is currently off pressors leukocytosis, resolved secondary to above, Continue to monitor anemia: will monitor, most likely due to chroniuc disease diabetes mellitus: Accu-Cheks before meals and at bedtime Humalog scale, continue metformin and Januvia COPD: on Qvar and 1, continue to monitor hyperlipidemia: Continue Zetia Left ankle with abnormal uric acid/osteoarthritis: Ortho is following, physical therapy for her and start her on colchicine 0.6 mg twice a day , MRI is pending for this afternoon hypertension: continue metoprolol, Lasix, when necessary nitroglycerin chronic neck & back pain h/o Lumbar Lami: controlled continue [place] for pain cardiac murmur: Continue to monitor, may follow up with 2-D echo Debility: She is refusing ECF at this time in explaining her going home, we'll wait on her MRI results to see if that's practical. I will work on discharge this afternoon depending on consult recommendations, otherwise within the next 24 hours be expected. ECF is still a possibility.
[2017-02-08 11:43] LABS: Glucose,Whole Blood 114 mg/dL (75-99)
[2017-02-08] MEDS: LEVOFLOXACIN 750 MG TAB PO SCH (12:57)
--- NOTE | 2017-02-08 14:44 | P.CRDCN ---
History of Present Illness Consult date: 02/08/17 History of present illness: This is a 81-year-old female with a known history of diabetes mellitus, hypertension, hyperlipidemia and GERD. She follows with Dr. Case as an outpatient. We have been consulted for arrhythmia. Patient is currently being treated for UTI with sepsis. Upon examination she is seen resting in bed comfortably. She denies any episodes of chest pain, shortness of breath, dizziness or nausea/vomiting. She does however complain of periods where she feels that she describes as palpitations. Upon review of the cardiac telemetry tracings it indicates frequent episodes of atrial tachycardia. There does not appear to be any component of atrial fibrillation in any of the recorded tracings or EKGs. The nurse states that the patient is being maintained with a heart rate in the 80s when she gets up to use the commode her heart rate shoots up to 135. Blood pressure 145/65. Hemoglobin 9.7, potassium 3.6, magnesium 1.6 , TSH 3.21. Review of Systems REVIEW OF SYSTEMS: Patient denies any chest discomfort. No diaphoresis. He denies headache, dizziness, blurred vision, double vision. No dyspnea on exertion. Patient denies any stomach discomfort. No nausea, vomiting. No hematochezia. No hematemesis. Denies any black stools or blood in his stools. No syncope. No cough. No recent fever or chills. Denies dysuria or hematuria. No muscle weakness or numbness. Past Medical History Past Medical History: Chest Pain / Angina, Diabetes Mellitus, GERD/Reflux, Hyperlipidemia, Hypertension, Osteoarthritis (OA) Additional Past Medical History / Comment(s): NIDDM, acid reflux, hyperlipidemia , hypertension, osteoarthritis, previous history of right ankle fracture, the patient embolus with the help of a walker, chronic back pain with previous laminectomy and decompression involving the lumbosacral spine, hiatal hernia History of Any Multi-Drug Resistant Organisms: None Reported Past Surgical History: Back Surgery, Joint Replacement, Orthopedic Surgery Additional Past Surgical History / Comment(s): 07/29/15 lumbar laminectomy decompression fusion L3-4 and L5-S1 with cell saver, lumbar instrumentation removal L4-5, ZULY KNEE REPLACEMENTS,ORIF RT ANKLE,L4-5 LAMINECTOMY, NECK FUSION , PAIN CLINIC, cataracts, zuly rotator cuff repair, surgery to zuly wrist, pain procedures. Past Anesthesia/Blood Transfusion Reactions: No Reported Reaction Additional Past Anesthesia/Blood Transfusion Reaction / Comment(s): Pt states she has never received blood. Past Psychological History: No Psychological Hx Reported Additional Psychological History / Comment(s): Pt resides with her spouse. She uses a walker or cane to ambulate. She no longer drives but her spouse does. She has no home care. Smoking Status: Former smoker Past Alcohol Use History: None Reported Additional Past Alcohol Use History / Comment(s): QUIT SMOKING 1974, 12 YRS @ 1 /2 PPD. Past Drug Use History: None Reported - Past Family History Father Brother(s) Family Medical History: Cancer Mother Sister(s) Family Medical History: Cancer Father Family Medical History: Myocardial Infarction ([place]) Additional Family Medical History / Comment(s): Father at 40 of a [place]. Mother Family Medical History: CVA/TIA Additional Family Medical History / Comment(s): Mother had a CVA Medications and Allergies Home Medications Medication Instructions Recorded Confirmed Type Ezetimibe [Zetia] 10 mg PO DAILY 11/14/13 02/04/17 History Furosemide [Lasix] 40 mg PO DAILY 11/14/13 02/04/17 History Gabapentin [Neurontin] 300 mg PO QAM 11/14/13 02/04/17 History Metoprolol Tartrate [Lopressor] 25 mg PO BID 11/14/13 02/04/17 History Potassium Chloride [K-Tab ER] 10 meq PO HS 11/14/13 02/04/17 History glipiZIDE [Glucotrol] 20 mg PO BID 11/14/13 02/04/17 History metFORMIN HCL 1,000 mg PO BID 11/14/13 02/04/17 History Nitroglycerin Sl Tabs [Nitrostat] 0.4 mg SUBLINGUAL Q5M PRN 07/20/15 02/04/17 History sitaGLIPtin PHOSPHATE [Januvia] 100 mg PO DAILY 07/20/15 02/04/17 History Cyanocobalamin [Vitamin B-12 1,000 mcg SQ Q28D 07/29/15 02/04/17 History Injection] Albuterol Sulfate [Proventil Hfa] 2 puff INHALATION RT-Q4H PRN 06/05/16 History Beclomethasone Dip 80 Mcg/Puff 2 puff INHALATION RT-BID 06/05/16 02/04/17 History [Qvar] HYDROcodone/APAP 5-325MG [[place] 1 tab PO Q6HR PRN 06/13/16 02/04/17 History 5-325] Amitriptyline HCl [Elavil] 50 mg PO HS 02/04/17 02/04/17 History Gabapentin 600 mg PO HS 02/04/17 02/04/17 History Lisinopril [Zestril] 5 mg PO BID 02/04/17 02/04/17 History Allergies Allergy/AdvReac Type Severity Reaction Status Date / Time Penicillins Allergy Rash/Hives Verified 02/04/17 15:37 Physical Exam Vitals: Vital Signs Temp Pulse Resp BP Pulse Ox 02/08/17 07:00 98.3 F 72 18 145/65 98 02/08/17 04:12 98 158/80 02/08/17 00:00 122 H 16 02/07/17 21:57 98.6 F 122 H 16 151/69 93 L 02/07/17 19:49 99 02/07/17 19:30 128 H 138/60 02/07/17 16:00 87 20 02/07/17 14:56 98.4 F 123 H 20 142/65 98 Intake and Output 02/07/17 02/08/17 02/08/17 22:59 06:59 14:59 Intake Total 590 400 Output Total 1 1 500 Balance 589 399 -500 Intake: IV 400 Sodium Chloride 0.9% 1, 400 000 ml @ 50 mls/hr IV . Q20H [facility] Rx#:[id number] Oral 590 Output: Urine 500 Stool 1 1 Other: Voiding Method Indwelling Catheter Bedside Commode # Voids 2 3 3 # Bowel Movements 1 1 GENERAL: This is a 81-year-old female in no apparent distress at the time of my examination. HEENT: Head is atraumatic, normocephalic. Pupils are equal, round. Sclerae anicteric. Conjunctivae are clear. Mucous membranes of the mouth are moist. Neck is supple. There is no jugular venous distention. No carotid bruit is heard. LUNGS: Clear to auscultation no wheezes, rales or rhonchi. No chest wall tenderness is noted on palpation or with deep breathing. HEART: Regular rate and rhythm with systolic ejection murmurs 4/6 auscultated at all listening points, no rubs or gallops. S1 and S2 heard. ABDOMEN: Soft, nontender. Bowel sounds are heard. No organomegaly noted. EXTREMITIES: 2+ peripheral pulses with evidence of left ankle edema and no calf tenderness noted. NEUROLOGIC: Patient is awake, alert and oriented x3. Results 02/08/17 07:38 02/08/17 07:38 CBC 02/08/17 Range/Units 07:38 WBC 8.0 (3.8-10.6) k/uL RBC 3.52 L (3.80-5.40) m/uL Hgb 9.7 L (11.4-16.0) gm/dL Hct 30.3 L (34.0-46.0) % Plt Count 358 (150-450) k/uL Comprehensive Metabolic Panel 02/08/17 Range/Units 07:38 Sodium 141 (137-145) mmol/L Potassium 3.6 (3.5-5.1) mmol/L Chloride 107 (98-107) mmol/L Carbon Dioxide 23 (22-30) mmol/L BUN 11 (7-17) mg/dL Creatinine 0.88 (0.52-1.04) mg/dL Glucose 133 H (74-99) mg/dL Calcium 8.2 L (8.4-10.2) mg/dL Current Medications Generic Name Dose Route Start Last Admin Trade Name Freq PRN Reason Stop Dose Admin Hydrocodone Bitart/Acetaminophen 1 each 02/05/17 14:21 02/06/17 21:55 [place] 7.5-325 PO 1 each Q6H PRN Administration Pain Albuterol/Ipratropium 3 ml 02/04/17 16:49 Duoneb 0.5 Mg-3 Mg/3 Ml Soln INHALATION RT-Q4H PRN shortness of breath Amitriptyline HCl 50 mg 02/05/17 21:00 02/07/17 20:24 Elavil PO 50 mg HS LEIGH ANN Administration Atorvastatin Calcium 40 mg 02/05/17 21:00 02/07/17 20:24 Lipitor PO 40 mg HS LEIGH ANN Administration Ezetimibe 10 mg 02/06/17 09:00 02/08/17 07:58 Zetia PO 10 mg DAILY LEIGH ANN Administration Furosemide 40 mg 02/06/17 09:00 02/08/17 07:58 Lasix PO 40 mg DAILY LEIGH ANN Administration Gabapentin 300 mg 02/06/17 09:00 02/08/17 07:58 Neurontin PO 300 mg QAM LEIGH ANN Administration Guaifenesin 200 mg 02/07/17 13:31 Robitussin PO Q6H PRN Cough Heparin Sodium (Porcine) 5,000 unit 02/05/17 00:00 02/08/17 07:58 Heparin SQ 5,000 unit Q8HR LEIGH ANN Administration Aztreonam 1 gm/ Sodium 50 mls @ 50 mls/hr 02/05/17 00:00 02/08/17 07:18 Chloride IVPB 50 mls/hr Q8HR LEIGH ANN Administration Sodium Chloride 1,000 mls @ 50 mls/hr 02/04/17 17:00 02/08/17 07:09 Saline 0.9% IV Not Given .Q20H LEIGH ANN Norepinephrine Bitartrate 4 mg in 250 mls @ 0 mls/hr 02/04/17 18:30 02/05/17 09:20 Levophed-0.9% Nacl 4 Mg/250ml Pmx IV 2 mcg/min .Q0M [facility] 7.5 mls/hr Protocol Administration Titrate Insulin Human Lispro 0 unit 02/05/17 08:05 02/08/17 12:55 Humalog SQ Not Given ACHS [facility] Protocol Levofloxacin 750 mg 02/07/17 12:00 02/08/17 12:57 Levaquin PO 750 mg Q24H LE[facility] Administration Linagliptin 5 mg 02/06/17 09:00 02/08/17 07:58 Tradjenta PO 5 mg DAILY LEIGH ANN Administration Metformin HCl 1,000 mg 02/05/17 17:30 02/08/17 07:58 Glucophage PO 1,000 mg BID-W/MEALS LEIGH ANN Administration Metoprolol Tartrate 50 mg 02/08/17 09:00 02/08/17 07:16 Lopressor PO Not Given BID [facility] Miscellaneous Information 1 each 02/04/17 16:49 Pneumonia Protocol Utilized PO ONCE PRN Per Protocol Nitroglycerin 0.4 mg 02/05/17 14:15 Nitrostat SUBLINGUAL Q5M PRN Chest Pain Pantoprazole Sodium 40 mg 02/05/17 07:30 02/08/17 07:58 Protonix PO 40 mg AC-BRKFST LIEGH ANN Administration Verapamil HCl 40 mg 02/08/17 21:00 Isoptin PO BID LEIGH ANN Intake and Output 02/07/17 02/08/17 02/08/17 22:59 06:59 14:59 Intake Total 590 400 Output Total 1 1 500 Balance 589 399 -500 Intake: IV 400 Sodium Chloride 0.9% 1, 400 000 ml @ 50 mls/hr IV . Q20H [facility] Rx#:[id number] Oral 590 Output: Urine 500 Stool 1 1 Other: Voiding Method Indwelling Catheter Bedside Commode # Voids 2 3 3 # Bowel Movements 1 1 02/08/17 07:38 02/08/17 07:38 - EKG Interpretation EKG: sinus rhythm EKG shows: tachycardia EKG Interpretations (text) EKG shows atrial tachycardia with a regular organized rhythm. P waves are present, no ST changes. Assessment and Plan Plan: ASSESSMENT 1. Sinus arrhythmia, paroxysmal atrial tachycardia 2. Systolic ejection murmur 3. Septic shock secondary to urinary tract infection. 4. Essential hypertension 5. Diabetes mellitus 6. Obesity PLAN We will add verapamil 40 mg twice a day. Repeat EKG in the morning. Nursing staff instructed to the EKG when patient is having episodes of tachycardia. We will order an echocardiogram. We will continue to follow this patient. Nurse Practitioner note has been reviewed, I agree with a documented findings and plan of care. Patient was seen and examined.
--- NOTE | 2017-02-08 15:31 | CDI ---
In responding to this query, please exercise your independent professional judgment. The [facility] Coding Staff and Clinical Documentation Specialists appreciate your assistance in clarifying documentation, maintaining compliance with coding guidelines, accurately documenting patients condition and capturing severity of illness. The fact that a question is asked does not imply that any particular answer is desired or expected. Communication forms are a method of clarifying documentation and are not made part of the Legal Health Record. Thank you in advance for your clarification. Last Revision, August 2015 Patricia Bashir [address] [place] [address] Documentation Clarification Form Date: 02/08/2017 3:03:00 PM From: Corry Serra Admit Date: 02/04/2017 4:49:00 PM Patient Name: Concepcion Newberry Visit Number: [id number] Discharge Date: Dr. Дмитрий Montoya Altered mental status was documented in the ED and your H&P and progress notes. Patient history/risk factors: Diabetes mellitus, hypertension Osteoarthritis, Former smoker Clinical Indicators: Present with weakness and confusion, falling down. Confused conversation on admission. Kendrick Coma Scale 14 Vital signs on admission: 103/56 111 22 104.4 89 % RA Labs: WBC 24.7 BUN 35, CR 1.30, LACTIC ACID 2.5; UA: Leukocyte Esterase - Moderate, Bacteria, Many Chest x-ray: Suspicious for right middle lobe infiltrate Other Indicators: Diagnosis of sepsis with septic shock, UTI and pneumonia Treatment: IV Fluid Neurological Assessment per protocol Aztreonam IV Levaquin PO In your professional opinion, please clarify the etiology of the altered mental status, if known. Encephalopathy (specify Type: Metabolic, Toxic, Other, and Underlying Medical Illness) Dementia (if know, specify Type and if with/without Behavioral Disturbance Other condition (please specify) Unable to determine Please document in your progress notes and discharge summary in order to capture severity of illness and risk of mortality. Include clinical findings that support your diagnosis. FYI: Press F11 to launch patient chart. MTDD
[2017-02-08 18:09] LABS: Glucose,Whole Blood 106 mg/dL (75-99)
[2017-02-08] MEDS: HYDROcodone/APAP 7.5-325MG 1 EACH TAB PO PRN (20:49)
[2017-02-08] MEDS: VERAPAMIL 40 MG TAB PO SCH (22:35)
[2017-02-08] MEDS: AMITRIPTYLINE HCL 50 MG TAB PO SCH (22:35)
[2017-02-08] MEDS: ATORVASTATIN 40 MG TAB PO SCH (22:35)
[2017-02-08 22:45] LABS: Glucose,Whole Blood 113 mg/dL (75-99)
--- NOTE | 2017-02-09 00:13 | MR ---
EXAMINATION TYPE: MR ankle LT wo con DATE OF EXAM: 02/08/2017 COMPARISON: NONE HISTORY: Inability to walk refer to XRAY 01/2017 Standard multiplanar, multisequence MRI departmental protocol Multiplanar, multisequence images of the left ankle were acquired. FINDINGS: There is mild ankle joint effusion. The Achilles tendon is intact. Plantar fascia appears i ntact. There is some narrowing of the ankle joint space with some spurring of the anterior and foreign clerk ior malleolus. There is a oblique linear defect involving the distal fibula 15 mm from the distal end. The collatera l ligaments appear intact. Distal tibia is intact. There is subcutaneous edema around the ankle joint and more on the lateral aspect. There is some soft tissue edema of the plantar aspect of the foot. IMPRESSION: Nondisplaced fracture of the distal fibula. Subcutaneous edema. Ankle joint effusion. Mild osteoarthritis in the ankle joint. There is slight deformity of the distal fibula consistent with an old healed fracture as well.
[2017-02-09 07:32] LABS: Glucose,Whole Blood 147 mg/dL (75-99)
[2017-02-09 07:49] LABS: Basophils % (A) 0 %; CH 26.9; CHCM 31.5; Eosinophils # (A) 0.3 k/uL (0-0.7); Eosinophils % (A) 4 %; HDW 2.95; HGB 9.7 gm/dL (11.4-16.0); Hypochromasia Slight; Luc # (Auto) 0.21; Luc % (Auto) 2; Lymphocytes # (A) 2.3 k/uL (1.0-4.8); Lymphocytes % (A) 26 %; MCH 27.8 pg (25.0-35.0); MCHC 32.4 g/dL (31.0-37.0); MCV 85.9 fL (80.0-100.0); Mean Platelet Volume 6.7; Monocytes # (A) 0.6 k/uL (0-1.0); Monocytes % (A) 7 %; Neutrophils # (A) 5.5 k/uL (1.3-7.7); Neutrophils % (A) 61 %; WBC (Perox) 9.53
[2017-02-09 07:50] VITALS: RESP 18
[2017-02-09 08:09] LABS: Anion Gap 10 mmol/L; Blood Urea Nitrogen 9 mg/dL (7-17); Calcium 8.1 mg/dL (8.4-10.2); Carbon Dioxide 22 mmol/L (22-30); Chloride 108 mmol/L (98-107); Glucose 143 mg/dL (74-99); Magnesium 1.5 mg/dL (1.6-2.3); Non-African American GFR(MDRD) >60 (>60 ml/min/1.73 sqM); Phosphorous 3.9 mg/dL (2.5-4.5); Potassium 3.4 mmol/L (3.5-5.1); Sodium 140 mmol/L (137-145)
[2017-02-09] MEDS: VERAPAMIL 40 MG TAB PO SCH (08:23)
[2017-02-09] MEDS: GABAPENTIN 300 MG CAP PO SCH (08:23)
[2017-02-09] MEDS: METOPROLOL TARTRATE 50 MG TAB PO SCH (08:23)
[2017-02-09] MEDS: LINAGLIPTIN 5 MG TABLET PO SCH (08:23)
[2017-02-09] MEDS: FUROSEMIDE 40 MG TAB PO SCH (08:23)
[2017-02-09] MEDS: PANTOPRAZOLE 40 MG TABLET PO SCH (08:24)
[2017-02-09] MEDS: EZETIMIBE 10 MG TAB PO SCH (08:24)
[2017-02-09] MEDS: metFORMIN 500 MG TAB PO SCH (08:24)
[2017-02-09] MEDS: HEPARIN SODIUM,PORCINE 5,000 UNIT/ML 1 ML VIAL SQ SCH ×2 (08:24→16:26)
[2017-02-09] MEDS: INSULIN LISPRO (humaLOG) 300 UNIT/3 ML VIAL SQ SCH ×2 (08:24→12:42)
[2017-02-09] MEDS: AZTREONAM 1 GM in SODIUM CHLORIDE 0.9% 50 ML IVPB SCH ×2 (08:24→16:26)
--- NOTE | 2017-02-09 08:52 | P.PN ---
Progress Note - Text Patient is a very pleasant 81-year-old female who is seen and examined at bedside follow-up evaluation for left ankle pain and swelling. Since being seen and examined yesterday, her symptoms have not significantly changed. She was able to have an MRI of the left ankle performed. This MRI did show evidence of a left nondisplaced distal fibular fracture. Patient states she still unable to bear weight on the left lower extremity. She has had improvement in range of motion of the left knee but continues to have significant difficulty with dorsiflexion and plantar flexion of the left ankle due to increased pain. She is currently sitting on a bedside commode. Again today, she denies injury to her left ankle from her 2 recent falls. She continues to experience significant pain with even light palpation over the entire left ankle. She has had some improvement of the pain over the lower extremity above the ankle. She continues to have mild pain with palpation over the top of the left foot and of the toes. She is able to wear socks without significant difficulty. She denies any right lower extremity pain. Patient is currently being seen and examined and treated by Dr. Montoya with further recommendations to follow. She has remained nonweightbearing on the left lower extremity. She continues to use a walker to aid mobility and transfers. Patient states she's most likely planned for discharge today. Physical Exam: Patient is awake, alert, and oriented 3; patient is sitting upright at the bedside without difficulty Vital signs stable Good chest excursion with deep inspiration and expiration Abdomen soft nontender No signs or symptoms of DVT; no calf pain Significant swelling over the left ankle most significant laterally Examination of the left ankle shows no evidence of erythema; No obvious sign of infection Evidence of significant bruising over the posterior lateral aspect of the ankle extending to the foot Significant pain with palpation of the entire left ankle Mild pain with palpation over the top of the foot and all toes of the left foot No pain with palpation of the left and knee calf Significant difficulty with range of motion of the left ankle including plantarflexion and dorsiflexion Adequate range of motion of the right lower extremity out significant difficulty Skin swelling over the left ankle most significant laterally Patient is able to perform range of motion of the left knee easier today as compared yesterday Pertinent studies: MRI of the left ankle: Nondisplaced fracture of the left distal fibula; subcutaneous edema; ankle joint effusion; mild osteoarthritis in the ankle joint ; slight deformity of the distal fibula consistent with old healed fracture as well X-rays the left ankle and foot: No sign of distal fibula or distal tibial fracture; no evidence of ankle mortise widening; evidence of significant swelling of the left ankle most significant laterally 02/05/2017: WBC: 17.1 Neutrophils: 12.1 Uric Acid 8.4 02/06/2017: WBC 10.3 Neutrophils 7.0 02/07/2017: WBC 8.4 Neutrophils 5.4 02/09/2017: WBC 9.0 Neutrophils 5.5 Assessment: Nondisplaced left distal fibular fracture S/P fall x2 Urinary tract infection Weakness Septic Shock Confusion - Resolved Plan: 1. MRI of the left ankle shows evidence of a nondisplaced left distal fibular fracture. After reviewing of the left ankle MRI, further discussion with Dr. Sabino Ibanez, physical examination of the patient, and discussion with the patient, I will currently plan to order a premium equalizer boot the left lower extremity. She should keep his boot and intact at all times except while bathing. She will remain nonweightbearing on the left lower extremity. She may elevate and ice the left lower extremity with intact for comfort support as needed. She may continue to use a walker to aid in ambulation and mobility. We will plan to have her follow with Dr. Sabino Ibanez in approximately 10 days in the outpatient setting for further evaluation. 2. Dr. Montoya in medicine will continue following the patient 3. Dr. Palomares in Pulmonology will continue to follow the patient 4. Patient has been discussed in detail with Dr. Sabino Ibanez and he agrees with this plan
[2017-02-09 11:29] LABS: Glucose,Whole Blood 125 mg/dL (75-99)
--- NOTE | 2017-02-09 11:44 | ECHOF ---
Referral Reason:palpitations MEASUREMENTS -------- HEIGHT: 160.0 cm WEIGHT: 115.7 kg BP: 145/65 RVIDd: 1.9 cm (< 3.3) IVSd: 1.1 cm (0.6 - 1.1) LVIDd: 4.3 cm (3.9 - 5.3) LVPWd: 1.1 cm (0.6 - 1.1) IVSs: 1.5 cm LVIDs: 2.8 cm LVPWs: 1.6 cm LAESV Index (A-L): 22.46 ml/m Ao Diam: 2.7 cm (2.0 - 3.7) AV Cusp: 0.8 cm (1.5 - 2.6) LA Diam: 2.9 cm (2.7 - 3.8) MV E Kamar: 0.97 m/s MV DecT: 280 ms MV A Kamar: 1.44 m/s MV E/A Ratio: 0.67 AV maxP.15 mmHg AV meanP.71 mmHg RAP: 5.00 mmHg RVSP: 18.61 mmHg FINDINGS -------- Sinus rhythm. This was a technically adequate study. There is borderline concentric left ventricular hypertrophy. Overall left ventricular systolic function is normal with, an EF between 65 - 70 %. The right ventricle is normal in size and function. Normal LA size by volume 22+/-6 ml/m2. The right atrium is normal in size. Aortic valve is trileaflet and is moderately thickened. There is no evidence of aortic regurgitation. There is mild aortic stenosis present. The mitral valve leaflets are mild to moderately thickened. Mild mitral annular calcification present. There is trace to mild mitral regurgitation. Trace tricuspid regurgitation present. There is no evidence of pulmonary hypertension. The right ventricular systolic pressure, as measured by Doppler, is 18.61mmHg. The pulmonic valve was not well visualized. The aortic root size is normal. Normal inferior vena cava with normal inspiratory collapse consistent with estimated right atrial pressure of 5 mmHg. The pericardium is normal. There is no pericardial effusion. CONCLUSIONS -------- 1. Sinus rhythm. 2. There is no evidence of pulmonary hypertension. 3. The right ventricular systolic pressure, as measured by Doppler, is 18.61mmHg. 4. The pulmonic valve was not well visualized. 5. The aortic root size is normal. 6. There is no pericardial effusion. 7. This was a technically adequate study. 8. There is borderline concentric left ventricular hypertrophy. 9. Overall left ventricular systolic function is normal with, an EF between 65 - 70 %. 10. Normal LA size by volume 22+/-6 ml/m2. 11. Aortic valve is trileaflet and is moderately thickened. 12. The mitral valve leaflets are mild to moderately thickened. 13. Mild mitral annular calcification present. 14. Trace tricuspid regurgitation present. SEO ANALYST: Javier Vee RDCS
[2017-02-09] MEDS: LEVOFLOXACIN 750 MG TAB PO SCH (12:42)
--- NOTE | 2017-02-09 13:06 | P.PN ---
Subjective This is a 81-year-old female with a known history of diabetes mellitus, hypertension, hyperlipidemia and GERD. She follows with Dr. Case as an outpatient. We have been consulted for arrhythmia. Patient is currently being treated for UTI with sepsis. She is seen today in follow-up. Upon examination she denies any chest pain, shortness of breath, palpitations or dizziness. We started her on verapamil yesterday 40 mg twice a day. Her blood pressure and heart rate for tolerating this in addition without incident. Blood pressure this morning is 138/60 with a heart rate of 73. There've been no further instances of atrial tachycardia. Echocardiogram reveals ejection fraction 65-70 %, no evidence of pulmonary hypertension with RSVP of 18.61 mmHg, borderline left ventricular hypertrophy, aortic valve is moderately thickened and mild mitral calcification is present. Objective - Vital Signs Vital signs: Vital Signs Temp 98.4 F 02/09/17 07:00 Pulse 73 02/09/17 07:00 Resp 18 02/09/17 07:00 BP 138/60 02/09/17 07:00 Pulse Ox 95 02/09/17 07:00 Intake & Output 02/08/17 02/09/17 02/09/17 18:59 06:59 18:59 Intake Total 1200 Output Total 1003 2 1 Balance -1003 1198 -1 Weight 116 kg Intake: Intake, IV Titration 400 Amount Sodium Chloride 0.9% 1, 400 000 ml @ 50 mls/hr IV . Q20H [facility] Rx#:[id number] Oral 800 Output: Urine 1000 Stool 3 2 1 Other: Voiding Method Bedside Commode Bedside Commode Bedside Commode # Voids 3 2 # Bowel Movements 1 - Exam GENERAL: Well-appearing, well-nourished and in no acute distress. NECK: Supple without JVD or thyromegaly. LUNGS: Breath sounds clear to auscultation bilaterally and equal. No wheezes, rales or rhonchi. HEART: Regular rate and rhythm with systolic ejection murmur 4/6 auscultated at all listening points, no rubs or gallops. S1 and S2 heard. ABDOMEN: Soft, nontender, normoactive bowel sounds. - Labs CBC & Chem 7: 02/09/17 07:25 02/09/17 07:25 Labs: Abnormal Lab Results - Last 24 Hours (Table) 0802/08/17 02/09/17 Range/Units 18:06 22:33 07:25 RBC 3.50 L (3.80-5.40) m/uL Hgb 9.7 L (11.4-16.0) gm/dL Hct 30.0 L (34.0-46.0) % Potassium (3.5-5.1) mmol/L Chloride (98-107) mmol/L Glucose (74-99) mg/dL POC Glucose (mg/dL) 106 H 113 H (75-99) mg/dL Calcium (8.4-10.2) mg/dL Magnesium (1.6-2.3) mg/dL 02/09/17 02/09/17 02/09/17 Range/Units 07:25 07:29 11:25 RBC (3.80-5.40) m/uL Hgb (11.4-16.0) gm/dL Hct (34.0-46.0) % Potassium 3.4 L (3.5-5.1) mmol/L Chloride 108 H (98-107) mmol/L Glucose 143 H (74-99) mg/dL POC Glucose (mg/dL) 147 H 125 H (75-99) mg/dL Calcium 8.1 L (8.4-10.2) mg/dL Magnesium 1.5 L (1.6-2.3) mg/dL Microbiology - Last 24 Hours (Table) 02/04/17 15:43 Blood Culture - Preliminary Blood No Growth after 96 hours Assessment and Plan Plan: ASSESSMENT 1. Sinus arrhythmia, paroxysmal atrial tachycardia 2. Systolic ejection murmur 3. Septic shock secondary to urinary tract infection. 4. Essential hypertension 5. Diabetes mellitus 6. Obesity PLAN Patient is to be continued on verapamil 40 mg twice a day. She can follow-up with Dr. Case as an outpatient in 2 weeks. Nurse Practitioner note has been reviewed, I agree with a documented findings and plan of care. Patient was seen and examined.
[2017-02-09 14:54] VITALS: BP 176/72; PULSE 77; TEMP 98.1
[2017-02-09 16:53] LABS: Glucose,Whole Blood 110 mg/dL (75-99)
--- NOTE | 2017-02-09 17:38 | P.DS ---
Providers Date of admission: 02/04/17 16:49 Expected date of discharge: 02/09/17 Attending physician: Phan Hartman Consults: 02/04/17 17:09 Consult Physician Urgent Consulting Provider: Geo Peres Consult Reason/Comments: critical care Do you want consulting provider notified?: Already Contacted 02/05/17 12:53 Consult Physician Routine Consulting Provider: Sudarshan Guillen Consult Reason/Comments: left foot/ankle apin Do you want consulting provider notified?: Yes 02/07/17 11:45 Consult Physician Routine Consulting Provider: Franklin Case Consult Reason/Comments: afib Do you want consulting provider notified?: Yes Primary care physician: [facility] Course: This is a pleasant 81-year-old white female my practice. Apparently 24 hours ago she began experiencing increasing confusion. Her daughter mentioned she had symptoms of a UTI previously to this. She was brought to the emergency room after being confused and falling down. She was diagnosed with sepsis secondary to UTI. She had fluid rehydration, but remained hypotensive and was admitted to the intensive care unit. She had had levothyroid originally. It is now been discontinued. Her mentation currently is much improved from24 hours ago. Concepcion has no significantly to this time other than left ankle pain. She denies any trauma. She lives at home with her . She uses a walker and/or cane for ambulation. 02/06/2017: Overnight Concepcion had a fever with MAXIMUM TEMPERATURE of 100.1. These Fahrenheit. She denies any significant complaints today though. She has had a bowel movement. She is eating somewhat, she denies any nausea or vomiting today. sHe feels better. He felt it seen her regarding her ankle. They're recommending conservative treatment. Her uric acid level was elevated. 02/07/2017: Patient continues to feel improved. She has been afebrile the past 24 hours. She had a bowel movement today. The nurse reports telemetry in the past and shown A. fib versus PACs had requested discontinuation telemetry. She has no history of atrial fibrillation. A cardiology consultation has been requested and is pending. Ulcers are positive for Escherichia coli. Multiple susceptibilities. Continue on Levaquin. 02/08/2017: Patient feels okay today. She has an MRI scheduled this afternoon of her left ankle. Her left ankle pain continues. We discussed her going to ECF, and she is now wanting to go home. She has minimal pain. Pulmonology is following for her ammonia. She remains on aztreonam and Levaquin for both pneumonia and UTI. 02/09/2017 [facility] had determined with MRI, she had an occult Fibular fracture on the left leg. They are ordering a walking cast for her. Cardiology and pulmonolgy had cleared her for D/C. Medically she is doing ok, but refuses ECF. we are planning home care/PT/OT. Final DX sepsis due to underlying infection Right lower lobe pneumonia UTI leukocytosis, resolved anemia diabetes mellitus COPD hyperlipidemia Left fibular fracture hypertension chronic neck & back pain h/o Lumbar Lami Patient Condition at Discharge: Fair Plan - Discharge Summary New Discharge Prescriptions: New Metoprolol Tartrate [Lopressor] 50 mg PO BID #60 tab Verapamil [Isoptin] 40 mg PO BID #60 tab Levofloxacin [Levaquin] 750 mg PO Q24H #7 tab Continue Ezetimibe [Zetia] 10 mg PO DAILY Potassium Chloride [K-Tab ER] 10 meq PO HS metFORMIN HCL 1,000 mg PO BID Furosemide [Lasix] 40 mg PO DAILY glipiZIDE [Glucotrol] 20 mg PO BID Gabapentin [Neurontin] 300 mg PO QAM Nitroglycerin Sl Tabs [Nitrostat] 0.4 mg SUBLINGUAL Q5M PRN PRN Reason: Chest Pain sitaGLIPtin PHOSPHATE [Januvia] 100 mg PO DAILY Cyanocobalamin [Vitamin B-12 Injection] 1,000 mcg SQ Q28D Atorvastatin Calcium [Lipitor] 40 mg PO HS #1 tab Beclomethasone Dip 80 Mcg/Puff [Qvar 80 mcg] 2 puff INHALATION RT-BID Albuterol Sulfate [Proventil Hfa] 2 puff INHALATION RT-Q4H PRN PRN Reason: Shortness Of Breath HYDROcodone/APAP 5-325MG [[place] 5-325] 1 tab PO Q6HR PRN PRN Reason: Pain Lisinopril [Zestril] 5 mg PO BID Amitriptyline HCl [Elavil] 50 mg PO HS Gabapentin 600 mg PO HS Discontinued Metoprolol Tartrate [Lopressor] 25 mg PO BID Discharge Medication List Ezetimibe [Zetia] 10 mg PO DAILY 11/14/13 [History] Furosemide [Lasix] 40 mg PO DAILY 11/14/13 [History] Gabapentin [Neurontin] 300 mg PO QAM 11/14/13 [History] Potassium Chloride [K-Tab ER] 10 meq PO HS 11/14/13 [History] glipiZIDE [Glucotrol] 20 mg PO BID 11/14/13 [History] metFORMIN HCL 1,000 mg PO BID 11/14/13 [History] Nitroglycerin Sl Tabs [Nitrostat] 0.4 mg SUBLINGUAL Q5M PRN 07/20/15 [History] sitaGLIPtin PHOSPHATE [Januvia] 100 mg PO DAILY 07/20/15 [History] Cyanocobalamin [Vitamin B-12 Injection] 1,000 mcg SQ Q28D 07/29/15 [History] Atorvastatin Calcium [Lipitor] 40 mg PO HS #1 tab 08/04/15 [Rx] Albuterol Sulfate [Proventil Hfa] 2 puff INHALATION RT-Q4H PRN 06/05/16 [History ] Beclomethasone Dip 80 Mcg/Puff [Qvar 80 mcg] 2 puff INHALATION RT-BID 06/05/16 [ History] HYDROcodone/APAP 5-325MG [[place] 5-325] 1 tab PO Q6HR PRN 06/13/16 [History] Amitriptyline HCl [Elavil] 50 mg PO HS 02/04/17 [History] Gabapentin 600 mg PO HS 02/04/17 [History] Lisinopril [Zestril] 5 mg PO BID 02/04/17 [History] Levofloxacin [Levaquin] 750 mg PO Q24H #7 tab 02/09/17 [Rx] Metoprolol Tartrate [Lopressor] 50 mg PO BID #60 tab 02/09/17 [Rx] Verapamil [Isoptin] 40 mg PO BID #60 tab 02/09/17 [Rx] Follow up Appointment(s)/Referral(s): Franklin Case MD [STAFF PHYSICIAN] - 2 Weeks Sabino Ibanez MD [STAFF PHYSICIAN] - 10 Days (Patient may follow-up with Dr. Sabino Ibanez at [facility] in 10 days following discharge. ) Phan Hartman Jr, DO [Primary Care Provider] - 1 Week Activity/Diet/Wound Care/Special Instructions: 1. Keep premium equalizer boot intact at all times except while bathing 2. Remain nonweightbearing on the left lower extremity 3. May elevate and ice the left lower extremity with the boot intact for comfort support as needed 4. She may continue to use a walker to aid in ambulation and mobility as needed Discharge Disposition: HOME WITH HOME HEALTH SERVICES
--- NOTE | 2017-02-14 14:53 | CDI ---
In responding to this query, please exercise your independent professional judgment. The [facility] Coding Staff and Clinical Documentation Specialists appreciate your assistance in clarifying documentation, maintaining compliance with coding guidelines, accurately documenting patients condition and capturing severity of illness. The fact that a question is asked does not imply that any particular answer is desired or expected. Communication forms are a method of clarifying documentation and are not made part of the Legal Health Record. Thank you in advance for your clarification. Last Revision, August [address] [place] [address] Documentation Clarification Form Date: 02/08/2017 3:03:00 PM From: Corry Serra Admit Date: 02/04/2017 4:49:00 PM Patient Name: Concepcion Newberry Visit Number: [id number] Discharge Date: Dr. Дмитрий Montoya Altered mental status was documented in the ED and your H&P Patient history/risk factors: Diabetes mellitus, hypertension Osteoarthritis, Former smoker Clinical Indicators: Present with weakness and confusion, falling down. Confused conversation on admission. [place] Coma Scale 14 Vital signs on admission: 103/56 111 22 104.4 89 % RA Labs: WBC 24.7 BUN 35, CR 1.30, LACTIC ACID 2.5; UA: Leukocyte Esterase - Moderate, Bacteria, Many Chest x-ray: Suspicious for right middle lobe infiltrate Other Clinical Indicators: Diagnosed with sepsis with septic shock, UTI, Pneumonia Treatment: IV Fluid Neurological Assessment per protocol Aztreonam IV Levaquin PO In your professional opinion, please clarify the etiology of the altered mental status, if known. Encephalopathy (specify Type: Metabolic, Toxic, Other, and Underlying Medical Illness) Dementia (if know, specify Type and if with/without Behavioral Disturbance Other condition (please specify) Unable to determine Please document as an addendum to your discharge summary in order to capture severity of illness and risk of mortality. Include clinical findings that support your diagnosis. FYI: Press F11 to launch patient chart. MTDTrevin
== END 2017-02-09 19:00 | disposition home health service (06) | DRG 871 ==
LOC: EC 15:20 → 6ICU 16:49 → 5MS5E 02-05 13:14
PROVIDERS: ADMIT Family Medicine; ATTEND Family Medicine
DX: A41.9 Sepsis, unspecified organism (principal); R65.21 Severe sepsis with septic shock; G93.41 Metabolic encephalopathy; J18.9 Pneumonia, unspecified organism; J44.0 Chronic obstructive pulmonary disease with (acute) lower respiratory infection; D64.9 Anemia, unspecified; S82.832A Other fracture of upper and lower end of left fibula, initial encounter for closed fracture; E87.2 Acidosis; I47.1 Supraventricular tachycardia; N39.0 Urinary tract infection, site not specified; I10 Essential (primary) hypertension; E11.9 Type 2 diabetes mellitus without complications; E66.01 Morbid (severe) obesity due to excess calories; E78.5 Hyperlipidemia, unspecified; G89.29 Other chronic pain; K21.9 Gastro-esophageal reflux disease without esophagitis; M19.90 Unspecified osteoarthritis, unspecified site; Z96.653 Presence of artificial knee joint, bilateral; Z79.84 Long term (current) use of oral hypoglycemic drugs; Z79.899 Other long term (current) drug therapy; Z82.3 Family history of stroke; Z82.49 Family history of ischemic heart disease and other diseases of the circulatory system; Z87.891 Personal history of nicotine dependence; Z91.81 History of falling; Z98.1 Arthrodesis status
CPT/HCPCS: 36415; 71010; 71020; 80048; 80053; 81001; 83036; 83605; 83735; 84100; 84550; 85025; 85610; 85730; 87040; 87077; 87086; 87186; 93005; 93306; 94760; 96361; 96365; 96367; 99291

== ENCOUNTER 2017-09-06 18:44 | Inpatient (IN) | payer MEDICARE ==
[2017-09-06] MEDS ORDERED: ONDANSETRON 4 MG/2 ML VIAL IVP STA (19:41)
[2017-09-06] MEDS ORDERED: SODIUM CHLORIDE 0.9% 1,000 ML IV STA (19:41)
[2017-09-06] MEDS ORDERED: SODIUM CHLORIDE 0.9% 500 ML IV STA (19:41)
[2017-09-06 20:37] LABS: Basophils % (A) 0 %; Eosinophils # (A) 0.1 k/uL (0-0.7); Eosinophils % (A) 0 %; HCT 33.2 % (34.0-46.0); HGB 10.5 gm/dL (11.4-16.0); Hypochromasia Slight; Lymphocytes # (A) 2.2 k/uL (1.0-4.8); Lymphocytes % (A) 13 %; MCH 27.1 pg (25.0-35.0); MCHC 31.5 g/dL (31.0-37.0); MCV 86.1 fL (80.0-100.0); Mean Platelet Volume 6.7; Monocytes # (A) 0.9 k/uL (0-1.0); Monocytes % (A) 6 %; Neutrophils # (A) 13.6 k/uL (1.3-7.7); Neutrophils % (A) 80 %; Platelet Count 394 k/uL (150-450); RBC 3.86 m/uL (3.80-5.40); RDW 13.9 % (11.5-15.5)
[2017-09-06 20:51] LABS: D-Dimer 6.56 mg/L FEU (<0.60); Partial Thromboplastin Time 26.1 sec (22.0-30.0); Prothrombin Time 10.1 sec (9.0-12.0)
[2017-09-06 20:54] LABS: Albumin 3.2 g/dL (3.5-5.0); Calcium 8.1 mg/dL (8.4-10.2); Total Bilirubin 0.2 mg/dL (0.2-1.3); Total Protein 6.1 g/dL (6.3-8.2)
[2017-09-06] MEDS ORDERED: cefTRIAXone IN SWFI 2,000 MG/20 ML SYRINGE IVP STA (20:56)
[2017-09-06 20:57] LABS: Creatine Kinase 1264 U/L (30-135)
[2017-09-06] MEDS ORDERED: SODIUM CHLORIDE 0.9% 1,000 ML IV ONE (20:57)
--- NOTE | 2017-09-06 20:57 | CT ---
EXAMINATION TYPE: CT brain wo con DATE OF EXAM: 09/06/2017 COMPARISON: Prior head CT 07/21/2016 and 09/28/2014 HISTORY: Leg weakness CT DLP: 763.5 mGycm Automated exposure control for dose reduction was used. Helical acquisition through the brain. FINDINGS: Cerebral vascular calcifications are again noted. There is no hemorrhage or hydrocephalus. Crescentic calcification between the cerebral hemispheres is again noted and is stable dating to 09/28/2014. Cor tical atrophy is present. Periventricular white matter shows patchy low attenuation. The calvarium is intact. Paranasal sinuses and mastoid air cells as visualized are normal. Orbits are intact. IMPRESSION: STABLE EXAM, NO ACUTE BRAIN ABNORMALITY.
[2017-09-06 20:59] LABS: Potassium 7.7 mmol/L (3.5-5.1)
--- NOTE | 2017-09-06 21:00 | XR ---
EXAMINATION TYPE: XR chest 2V DATE OF EXAM: 09/06/2017 COMPARISON: Prior chest x-ray 06/20/2017 HISTORY: Weakness, hypertension TECHNIQUE: Frontal and lateral views of the chest are obtained. FINDINGS: Patient is rotated. The heart is enlarged. There are overlying cardiac leads. Difficult to exclude basilar density. Postop change noted to the left shoulder. Pulmonary artery appears prominen tly. IMPRESSION: Rotated exam. Cardiomegaly. Correlate for possible pulmonary artery hypertension. Diffic ult to exclude basilar airspace disease, edema, atelectasis or effusion, follow-up suggested.
[2017-09-06 21:10] LABS: Troponin I <0.012 ng/mL (0.000-0.034)
[2017-09-06 21:11] LABS: Creatine Kinase MB 6.8 ng/mL (0.0-2.4)
[2017-09-06] MEDS ORDERED: DEXTROSE 50%-WATER 50 ML SYRINGE IVP STA (21:22)
[2017-09-06] MEDS ORDERED: INSULIN REGULAR 100 UNIT/ML VIAL IV ONE ×2 (21:22→22:37)
--- NOTE | 2017-09-06 21:26 | ED ---
Weakness HPI - General Chief complaint: Weakness Stated complaint: leg weakness Time Seen by Provider: 09/06/17 19:25 Source: patient Mode of arrival: EMS Limitations: physical limitation - History of Present Illness Initial comments: 82 years old female came in with her , presenting with weakness worsening for the last 3 days, she was seen by her primary care , has been feels that she been going downhill for the last 3 weeks she is not eating well she has a history of diabetes hypertension and coronary artery disease now she is now complaining about any chest pain or shortness of breath it's a generalized weakness he saying that she threw up twice today no abdominal pain now no headaches no stiff neck no symptoms of TIA or CVAs weakness over denies any fever no chills no frequency urgency dysuria no symptoms of TIA or CVA - Related Data Home Medications Medication Instructions Recorded Confirmed Ezetimibe [Zetia] 10 mg PO DAILY 11/14/13 09/06/17 Furosemide [Lasix] 40 mg PO DAILY 11/14/13 09/06/17 glipiZIDE [Glucotrol] 20 mg PO BID 11/14/13 09/06/17 Nitroglycerin Sl Tabs [Nitrostat] 0.4 mg SUBLINGUAL Q5M PRN 07/20/15 09/06/17 HYDROcodone/APAP 5-325MG [[place] 1 tab PO Q6HR PRN 06/13/16 09/06/17 5-325] Amitriptyline HCl [Elavil] 50 mg PO HS 02/04/17 09/06/17 Gabapentin 400 mg PO DAILY 06/18/17 09/06/17 Gabapentin 800 mg PO HS 06/18/17 09/06/17 Albuterol Inhaler [Ventolin Hfa 2 puff INHALATION RT-Q4H PRN 09/06/17 09/06/17 Inhaler] Aspirin [Adult Low Dose Aspirin EC] 81 mg PO DAILY 09/06/17 09/06/17 Linagliptin [Tradjenta] 5 mg PO DAILY 09/06/17 09/06/17 Previous Rx's Medication Instructions Recorded Atorvastatin Calcium [Lipitor] 40 mg PO HS #1 tab 08/04/15 Metoprolol Tartrate [Lopressor] 50 mg PO BID #60 tab 02/09/17 Verapamil [Isoptin] 40 mg PO BID #60 tab 02/09/17 Allergies Allergy/AdvReac Type Severity Reaction Status Date / Time Penicillins Allergy Rash/Hives Verified 09/06/17 19:21 Review of Systems ROS Statement: Those systems with pertinent positive or pertinent negative responses have been documented in the HPI. ROS Other: All systems not noted in ROS Statement are negative. Past Medical History Past Medical History: Chest Pain / Angina, Diabetes Mellitus, GERD/Reflux, Hyperlipidemia, Hypertension, Osteoarthritis (OA) Additional Past Medical History / Comment(s): NIDDM, acid reflux, hyperlipidemia , hypertension, osteoarthritis, previous history of right ankle fracture, the patient embolus with the help of a walker, chronic back pain with previous laminectomy and decompression involving the lumbosacral spine, hiatal hernia History of Any Multi-Drug Resistant Organisms: None Reported Past Surgical History: Back Surgery, Joint Replacement, Orthopedic Surgery Additional Past Surgical History / Comment(s): 07/29/15 lumbar laminectomy decompression fusion L3-4 and L5-S1 with cell saver, lumbar instrumentation removal L4-5, ZULY KNEE REPLACEMENTS,ORIF RT ANKLE,L4-5 LAMINECTOMY, NECK FUSION , PAIN CLINIC, cataracts, zuly rotator cuff repair, surgery to zuly wrist, pain procedures. Past Anesthesia/Blood Transfusion Reactions: No Reported Reaction Additional Past Anesthesia/Blood Transfusion Reaction / Comment(s): Pt states she has never received blood. Past Psychological History: Anxiety, Depression Smoking Status: Former smoker Past Alcohol Use History: None Reported Past Drug Use History: None Reported - Past Family History Father Brother(s) Family Medical History: Cancer Mother Sister(s) Family Medical History: Cancer Father Family Medical History: Myocardial Infarction (NC) Additional Family Medical History / Comment(s): Father at 40 of a NC. Mother Family Medical History: CVA/TIA Additional Family Medical History / Comment(s): Mother had a CVA General Exam Limitations: physical limitation Course Vital Signs 09/06/17 09/06/17 09/06/17 18:57 20:24 20:30 Temperature 97.9 F Pulse Rate 78 74 Respiratory 18 18 20 Rate Blood Pressure 127/65 129/54 O2 Sat by Pulse 86 L 99 Oximetry 09/06/17 09/06/17 09/06/17 22:09 22:22 22:27 Temperature Pulse Rate 74 82 79 Respiratory 18 Rate Blood Pressure 111/52 O2 Sat by Pulse 98 Oximetry Patient has a quite a few abnormalities on the blood work her creatinine is a 6.90 it was 1.4 just a month ago her potassium is 7.7F have ordered repeat potassium stat D-dimer is pending at this point EKG Findings - EKG Comments: EKG Findings:: EKG is normal sinus rhythm, low voltage QRS ventricular rate is 73 TN interval is 196 QRS duration is 80 QT/QTc is 374/412 and aVF this EKG does not reveal any ST elevation or ST depression Medical Decision Making - Lab Data Result diagrams: 09/06/17 20:16 09/06/17 21:48 Lab Results 09/06/17 09/06/17 09/06/17 Range/Units 20:16 20:16 20:16 WBC 17.0 H (3.8-10.6) k/uL RBC 3.86 (3.80-5.40) m/uL Hgb 10.5 L (11.4-16.0) gm/dL Hct 33.2 L (34.0-46.0) % MCV 86.1 (80.0-100.0) fL MCH 27.1 (25.0-35.0) pg MCHC 31.5 (31.0-37.0) g/dL RDW 13.9 (11.5-15.5) % Plt Count 394 (150-450) k/uL Neutrophils % 80 % Lymphocytes % 13 % Monocytes % 6 % Eosinophils % 0 % Basophils % 0 % Neutrophils # 13.6 H (1.3-7.7) k/uL Lymphocytes # 2.2 (1.0-4.8) k/uL Monocytes # 0.9 (0-1.0) k/uL Eosinophils # 0.1 (0-0.7) k/uL Basophils # 0.0 (0-0.2) k/uL Hypochromasia Slight PT 10.1 (9.0-12.0) sec INR 1.0 (<1.2) APTT 26.1 (22.0-30.0) sec D-Dimer 6.56 H (<0.60) mg/L FEU Sodium 133 L (137-145) mmol/L Potassium 7.7 H* (3.5-5.1) mmol/L Chloride 96 L (98-107) mmol/L Carbon Dioxide 16 L (22-30) mmol/L Anion Gap 21 mmol/L BUN 84 H* (7-17) mg/dL Creatinine 6.90 H* (0.52-1.04) mg/dL Est GFR (CKD-EPI)AfAm 6 (>60 ml/min/1.73 sqM) Est GFR (CKD-EPI)NonAf 5 (>60 ml/min/1.73 sqM) Glucose 54 L (74-99) mg/dL POC Glucose (mg/dL) (75-99) mg/dL POC Glu Home Care Consultant ID Plasma Lactic Acid Russel (0.7-2.0) mmol/L Calcium 8.1 L (8.4-10.2) mg/dL Total Bilirubin 0.2 (0.2-1.3) mg/dL AST 61 H (14-36) U/L ALT 37 (9-52) U/L Alkaline Phosphatase 102 (38-126) U/L Total Creatine Kinase (30-135) U/L CK-MB (CK-2) (0.0-2.4) ng/mL CK-MB (CK-2) Rel Index Troponin I (0.000-0.034) ng/mL Total Protein 6.1 L (6.3-8.2) g/dL Albumin 3.2 L (3.5-5.0) g/dL Urine Color Urine Appearance (Clear) Urine pH (5.0-8.0) Ur Specific [place] (1.001-1.035) Urine Protein (Negative) Urine Glucose (UA) (Negative) Urine Ketones (Negative) Urine Blood (Negative) Urine Nitrite (Negative) Urine Bilirubin (Negative) Urine Urobilinogen (<2.0) mg/dL Ur Leukocyte Esterase (Negative) Urine RBC (0-5) /hpf Urine WBC (0-5) /hpf Urine WBC Clumps (None) /hpf Ur Squamous Epith Cells (0-4) /hpf Urine Bacteria (None) /hpf Hyaline Casts (0-2) /lpf Urine Mucus (None) /hpf 09/06/17 09/06/17 09/06/17 Range/Units 20:16 20:16 21:48 WBC (3.8-10.6) k/uL RBC (3.80-5.40) m/uL Hgb (11.4-16.0) gm/dL Hct (34.0-46.0) % MCV (80.0-100.0) fL MCH (25.0-35.0) pg MCHC (31.0-37.0) g/dL RDW (11.5-15.5) % Plt Count (150-450) k/uL Neutrophils % % Lymphocytes % % Monocytes % % Eosinophils % % Basophils % % Neutrophils # (1.3-7.7) k/uL Lymphocytes # (1.0-4.8) k/uL Monocytes # (0-1.0) k/uL Eosinophils # (0-0.7) k/uL Basophils # (0-0.2) k/uL Hypochromasia PT (9.0-12.0) sec INR (<1.2) APTT (22.0-30.0) sec D-Dimer (<0.60) mg/L FEU Sodium (137-145) mmol/L Potassium 7.7 H* (3.5-5.1) mmol/L Chloride (98-107) mmol/L Carbon Dioxide (22-30) mmol/L Anion Gap mmol/L BUN (7-17) mg/dL Creatinine (0.52-1.04) mg/dL Est GFR (CKD-EPI)AfAm (>60 ml/min/1.73 sqM) Est GFR (CKD-EPI)NonAf (>60 ml/min/1.73 sqM) Glucose (74-99) mg/dL POC Glucose (mg/dL) (75-99) mg/dL POC Glu Home Care Consultant ID Plasma Lactic Acid Russel 3.8 H* (0.7-2.0) mmol/L Calcium (8.4-10.2) mg/dL Total Bilirubin (0.2-1.3) mg/dL AST (14-36) U/L ALT (9-52) U/L Alkaline Phosphatase (38-126) U/L Total Creatine Kinase 1264 H (30-135) U/L CK-MB (CK-2) 6.8 H* (0.0-2.4) ng/mL CK-MB (CK-2) Rel Index 0.5 Troponin I <0.012 (0.000-0.034) ng/mL Total Protein (6.3-8.2) g/dL Albumin (3.5-5.0) g/dL Urine Color Urine Appearance (Clear) Urine pH (5.0-8.0) Ur Specific [place] (1.001-1.035) Urine Protein (Negative) Urine Glucose (UA) (Negative) Urine Ketones (Negative) Urine Blood (Negative) Urine Nitrite (Negative) Urine Bilirubin (Negative) Urine Urobilinogen (<2.0) mg/dL Ur Leukocyte Esterase (Negative) Urine RBC (0-5) /hpf Urine WBC (0-5) /hpf Urine WBC Clumps (None) /hpf Ur Squamous Epith Cells (0-4) /hpf Urine Bacteria (None) /hpf Hyaline Casts (0-2) /lpf Urine Mucus (None) /hpf 09/06/17 09/06/17 Range/Units 22:14 22:30 WBC (3.8-10.6) k/uL RBC (3.80-5.40) m/uL Hgb (11.4-16.0) gm/dL Hct (34.0-46.0) % MCV (80.0-100.0) fL MCH (25.0-35.0) pg MCHC (31.0-37.0) g/dL RDW (11.5-15.5) % Plt Count (150-450) k/uL Neutrophils % % Lymphocytes % % Monocytes % % Eosinophils % % Basophils % % Neutrophils # (1.3-7.7) k/uL Lymphocytes # (1.0-4.8) k/uL Monocytes # (0-1.0) k/uL Eosinophils # (0-0.7) k/uL Basophils # (0-0.2) k/uL Hypochromasia PT (9.0-12.0) sec INR (<1.2) APTT (22.0-30.0) sec D-Dimer (<0.60) mg/L FEU Sodium (137-145) mmol/L Potassium (3.5-5.1) mmol/L Chloride (98-107) mmol/L Carbon Dioxide (22-30) mmol/L Anion Gap mmol/L BUN (7-17) mg/dL Creatinine (0.52-1.04) mg/dL Est GFR (CKD-EPI)AfAm (>60 ml/min/1.73 sqM) Est GFR (CKD-EPI)NonAf (>60 ml/min/1.73 sqM) Glucose (74-99) mg/dL POC Glucose (mg/dL) 203 H (75-99) mg/dL POC Glu Home Care Consultant Ritu Suggs Plasma Lactic Acid Russel (0.7-2.0) mmol/L Calcium (8.4-10.2) mg/dL Total Bilirubin (0.2-1.3) mg/dL AST (14-36) U/L ALT (9-52) U/L Alkaline Phosphatase (38-126) U/L Total Creatine Kinase (30-135) U/L CK-MB (CK-2) (0.0-2.4) ng/mL CK-MB (CK-2) Rel Index Troponin I (0.000-0.034) ng/mL Total Protein (6.3-8.2) g/dL Albumin (3.5-5.0) g/dL Urine Color Yellow Urine Appearance Turbid H (Clear) Urine pH 6.5 (5.0-8.0) Ur Specific [place] 1.012 (1.001-1.035) Urine Protein 2+ H (Negative) Urine Glucose (UA) Negative (Negative) Urine Ketones Negative (Negative) Urine Blood Moderate H (Negative) Urine Nitrite Negative (Negative) Urine Bilirubin Negative (Negative) Urine Urobilinogen <2.0 (<2.0) mg/dL Ur Leukocyte Esterase Large H (Negative) Urine RBC 9 H (0-5) /hpf Urine WBC >182 H (0-5) /hpf Urine WBC Clumps Many H (None) /hpf Ur Squamous Epith Cells 1 (0-4) /hpf Urine Bacteria Many H (None) /hpf Hyaline Casts 25 H (0-2) /lpf Urine Mucus Rare H (None) /hpf Critical Care Time Total Critical Care Time: 60 Critical Care Time: She came in with a generalized weakness and hypoxia and we did the cardiopulmonary evaluation also look into possibility of sepsis white count is 17 d-dimer is quite elevated 6.56 potassium is 7.7, he was repeated it took a long time to get the confirmation of the potassium in came back 7.7 her baseline kidney functions 1.4F creatinine today Soma 7 troponin is negative d- dimer. The treatment was temporarily delayed because of the confirmation took some time though we have ordered cultures to see why the white count is elevated D5 and insulin IV was given to push the potassium intracellular, albuterol neb was ordered Kayexalate by mouth resorted considering his elevated d-dimer I have ordered a VQ scan she be admitted to the admitted to Dr. Reynoso service I did speak with the Dr. Palomares ICU is full will consult cardiology as well as nephrology for acute renal failure cardiology considering his high B Danielle Rdz history of coronary artery disease Disposition Clinical Impression: Generalized weakness, Hyperkalemia, Elevated d-dimer, Renal failure Disposition: ADMITTED IP TO THIS HOSP Referrals: Phan Hartman Jr, [Primary Care Provider] - 1-2 days
[2017-09-06] MEDS ORDERED: ALBUTEROL NEBULIZED 2.5 MG/3 ML INHALATION STA ×2 (21:28→22:35)
[2017-09-06] MEDS: DEXTROSE 50%-WATER 50 ML SYRINGE IVP STA (21:47)
[2017-09-06 22:27] LABS: Appearance,Urine Turbid (Clear); Bacteria,Urine Many /hpf; Bilirubin,Urine Negative (Negative); Blood,Urine Moderate (Negative); Color,Urine Yellow; Glucose,Urine (UA) Negative (Negative); Hyaline Casts,Urine 25 /lpf (0-2); Ketones,Urine Negative (Negative); Leukocyte Esterase,Urine Large (Negative); Mucus,Urine Rare /hpf; Nitrite,Urine Negative (Negative); PH, Urine 6.5 (5.0-8.0); Protein,Urine 2+ (Negative); RBC,Urine 9 /hpf (0-5); Specific Gravity,Urine 1.012 (1.001-1.035); Squamous Epithelial Cell,Urine 1 /hpf (0-4); Urobilinogen,Urine <2.0 mg/dL (<2.0); WBC,Urine >182 /hpf (0-5)
[2017-09-06 22:34] LABS: Glucose,Whole Blood 203 mg/dL (75-99)
[2017-09-06] MEDS ORDERED: CALCIUM GLUCONATE 1,000 MG in SODIUM CHLORIDE 0.9% 100 ML IVPB ONE (22:35)
[2017-09-06] MEDS ORDERED: SODIUM POLYSTYRENE SULFONATE 15 GM/60 ML BOTTLE PO STA (22:36)
[2017-09-06] MEDS ORDERED: NALOXONE 0.4 MG/ML 1 ML VIAL IV PRN ×2 (22:43→23:08)
[2017-09-06] MEDS ORDERED: NITROGLYCERIN SL TABS 0.4 MG TAB SUBLINGUAL PRN (22:50)
[2017-09-06] MEDS ORDERED: SODIUM BICARB 8.4% 50 ML SYR (1 MEQ/ML) IV ONE (23:45)
--- NOTE | 2017-09-07 00:13 | NM ---
EXAMINATION TYPE: NM pul vent and perfuse DATE OF EXAM: 09/07/2017 COMPARISON: NONE HISTORY: Short of breath. Elevated d-dimer. TECHNIQUE: Utilizing inhalation of 35.5 mCi Tc 99m DTPA aerosol and intravenous injection of 5.3 mCi of Tc 99m MAA, ventilation and perfusion images are acquired post injection in multiple projections. FINDINGS: There are matching segmental sized defects in the right upper lobe and at the right lung base. There are small subsegmental peripheral perfusion defects which appear matching in the left lung. There is no ventilation/perfusion mismatch. IMPRESSION: Multiple matching defects. There is no pulmonary consolidation seen on the chest x-ray today. This is consistent with moderate airway disease. There is a low probability of pulmonary embolism.
[2017-09-07] MEDS ORDERED: CLINDAMYCIN 600 MG in DEXTROSE 5% IN WATER 50 ML IVPB STA ×2 (00:32)
[2017-09-07 00:49] LABS: Glucose,Whole Blood 128 mg/dL (75-99)
[2017-09-07 04:31] LABS: Basophils % (A) 0 %; Eosinophils % (A) 0 %; HCT 30.6 % (34.0-46.0); HGB 9.2 gm/dL (11.4-16.0); Hypochromasia Marked; Lymphocytes # (A) 2.3 k/uL (1.0-4.8); Lymphocytes % (A) 15 %; MCH 26.6 pg (25.0-35.0); MCV 88.4 fL (80.0-100.0); Mean Platelet Volume 7.6; Monocytes # (A) 1.1 k/uL (0-1.0); Monocytes % (A) 7 %; Neutrophils # (A) 11.7 k/uL (1.3-7.7); Neutrophils % (A) 76 %; Platelet Count 328 k/uL (150-450); RBC 3.46 m/uL (3.80-5.40); RDW 14.5 % (11.5-15.5); WBC 15.4 k/uL (3.8-10.6)
[2017-09-07 04:37] LABS: Albumin 2.7 g/dL (3.5-5.0); Calcium 7.7 mg/dL (8.4-10.2); Total Bilirubin 0.2 mg/dL (0.2-1.3); Total Protein 5.2 g/dL (6.3-8.2)
[2017-09-07] MEDS ORDERED: SODIUM CHLORIDE 0.9% 1,000 ML IV ONE ×2 (05:30→13:20)
[2017-09-07 06:16] LABS: Basophils % (A) 0 %; Eosinophils % (A) 0 %; HGB 9.1 gm/dL (11.4-16.0); Hypochromasia Slight; Lymphocytes # (A) 2.1 k/uL (1.0-4.8); Lymphocytes % (A) 15 %; MCHC 31.4 g/dL (31.0-37.0); MCV 85.9 fL (80.0-100.0); Mean Platelet Volume 7.2; Monocytes % (A) 7 %; Neutrophils # (A) 11.2 k/uL (1.3-7.7); Neutrophils % (A) 77 %; Platelet Count 324 k/uL (150-450); RBC 3.37 m/uL (3.80-5.40); WBC 14.5 k/uL (3.8-10.6)
[2017-09-07 06:58] LABS: Albumin 2.6 g/dL (3.5-5.0); Calcium 7.2 mg/dL (8.4-10.2); Total Bilirubin 0.1 mg/dL (0.2-1.3); Total Protein 5.1 g/dL (6.3-8.2)
[2017-09-07] MEDS: ALBUTEROL NEBULIZED 2.5 MG/3 ML INHALATION PRN ×4 (08:36→20:06)
[2017-09-07] MEDS: EZETIMIBE 10 MG TAB PO SCH (08:42)
[2017-09-07] MEDS: ASPIRIN 81 MG PO SCH (08:42)
[2017-09-07] MEDS: LINAGLIPTIN 5 MG TABLET PO SCH (08:42)
--- NOTE | 2017-09-07 08:42 | US ---
EXAMINATION TYPE: US abd limited kidneys/bladder DATE OF EXAM: 09/07/2017 COMPARISON: NONE CLINICAL HISTORY: Kidney Injury. EXAM MEASUREMENTS: Liver Length: 17.4 cm Gallbladder Wall: 0.5 cm CBD: 0.4 cm Right Kidney: 9.9 x 4.0 x 4.6 cm Left Kidney: 11.4 x 5.0 x 4.7 cm ICU hold patient in ER, morbidly obese, with significant coughing, SOB, unable to move or hold her br eath. Pancreas: partially obscured by bowel, prominent duct Liver: upper limits of normal in size, difficult to penetrate, somewhat limited visualization Gallbladder: very difficult to visualize, wall appears thick, contracted, pt states she is NPO CBD: wnl Right Kidney: No hydronephrosis or masses seen Left Kidney: No hydronephrosis or masses seen and cortical medullary differentiation is maintained . Bladder: not seen, gibson *Incidental finding right pleural effusion There is no ascites. IMPRESSION: Exam is somewhat limited. Correlate for hepatocellular disease, hepatic steatosis. Small right pleural effusion. Gallbladder may be contracted. Urinary bladder is catheterized. Spleen is not seen.
[2017-09-07] MEDS: VERAPAMIL 40 MG TAB PO SCH ×2 (08:43→22:28)
[2017-09-07] MEDS: METOPROLOL TARTRATE 50 MG TAB PO SCH ×2 (08:43→22:29)
[2017-09-07] MEDS ORDERED: GABAPENTIN 400 MG CAP PO SCH ×2 (09:00→21:00)
[2017-09-07] MEDS ORDERED: FUROSEMIDE 10 MG/ML 4 ML VIAL IV STA (11:25)
[2017-09-07] MEDS: DEXTROSE 5% IN WATER 1,000 ML with SODIUM BICARB (1 MEQ/ML) 150 ML IV SCH (12:00)
--- NOTE | 2017-09-07 13:31 | P.CNPUL ---
<Morena Felix - Last Filed: 09/07/17 13:06> History of Present Illness Consult date: 09/07/17 Requesting physician: Phan Hartman Jr Reason for consult: other Chief complaint: Fatigue, weakness, shortness of breath History of present illness: This is a very pleasant 82-year-old female patient who follows with Dr. Hartman as her primary care physician. She has a history of diabetes mellitus, gastroesophageal reflux disease, hyperlipidemia, hypertension, osteoarthritis, chronic low back pain, morbid obesity. She has also been seen by our group in the past for critical care management secondary to urinary tract infection with sepsis cultures positive for Klebsiella pneumoniae and E. coli. She does have a 20 year pack per day smoking history however quit back in 1974. She is maintained on albuterol in the outpatient setting. She presented here to the emergency room last evening with a 3 day history of progressive weakness, poor appetite, poor oral intake. She was also vomiting. She did have chills. No significant abdominal discomfort, no headache. She does admit to pain on urination and decreased urine output. No significant shortness of breath, cough or congestion. Chest x-ray revealed evidence of cardiomegaly but no clear evidence of pneumonia. VQ scan revealed low probability for pulmonary embolism. Computed tomography scan of the brain revealed no acute intracranial process. Abdominal ultrasound revealed hepatic steatosis, small right pleural effusion. There is no evidence of hydronephrosis. Lab results revealed WBC 17.0, hemoglobin 10.5, sodium 133, potassium 7.7, chloride 96 CO2 16, anion gap 21, BUN 84 creatinine 6.90. Lactic acid 3.8. Urinalysis revealed moderate blood large leukocytes greater than 182 WBCs with many bacteria. She has received 1 dose of clindamycin 1 dose of Rocephin. She's had 3 L of fluid resuscitation. She's been treated for her hyperkalemia and the current potassium is 5.1. She is seen today in consultation in the end emergency room. She is awake and alert in no acute distress. She remains quite weak however. Urine culture is in progress. Current lab results reveal a WBC of 15.4. Hemoglobin 9.2. Gastric acid improved to 1.2. Sodium 136. Potassium 5.1. Creatinine 6.40. Nephrology has been consulted. She is currently afebrile. Maintaining good O2 saturations in the 90s on 2 L/m per nasal cannula. She has been hemodynamically stable. Not requiring any pressors at this point. Currently on ceftriaxone. Review of Systems Review of Systems Constitutional: Reports chills, Reports fatigue, Reports lethargy, Reports weakness Eyes: denies blurred vision, denies bulging eye, denies decreased vision Ears: deny: decreased hearing, ear discharge, earache Ears, nose, mouth and throat: Denies headache, Denies sore throat Cardiovascular: Reports decreased exercise tolerance, Reports shortness of breath Respiratory: Reports dyspnea Musculoskeletal: Reports frequent falls, Denies myalgias Musculoskeletal: left: ankle pain, ankle swelling, absent: ankle stiffness Integumentary: Denies pruritus, Denies rash Neurological: Reports weakness, Denies numbness Psychiatric: Denies anxiety, Denies depression Past Medical History Past Medical History: Coronary Artery Disease (CAD), Chest Pain / Angina, COPD, Diabetes Mellitus, GERD/Reflux, Hyperlipidemia, Hypertension, Myocardial Infarction (LA), Osteoarthritis (OA) Additional Past Medical History / Comment(s): 06/18/1712/18/17 Admitted to [facility] with NSTEMI, R lower lobe pneumonia and exacerbation of her COPD. Pt refused heart catheterization. Other hx; NIDDM type II, bilateral peripheral neuropathy in feet, hiatal hernia, arthritis multiple joints, chronic low back pain, lower leg edema, cataracts bilaterally. Last Myocardial Infarction Date:: 06/17/18 History of Any Multi-Drug Resistant Organisms: None Reported Past Surgical History: Back Surgery, Joint Replacement, Orthopedic Surgery Additional Past Surgical History / Comment(s): 07/29/15 lumbar laminectomy decompression fusion L3-4 and L5-S1 with cell saver, lumbar instrumentation removal L4-5, L4-L5 laminectomy, ZULY KNEE REPLACEMENTS,ORIF RT ANKLE, CERVICAL FUSION, zuly rotator cuff repair, surgery to zuly wrist carpal tunnel releases, pain procedures, L breast lumpectomy-benign, bilateral legs varicose vein stripping. Past Anesthesia/Blood Transfusion Reactions: No Reported Reaction Additional Past Anesthesia/Blood Transfusion Reaction / Comment(s): Pt states she has never received blood. Smoking Status: Former smoker - Past Family History Father Brother(s) Family Medical History: Cancer Mother Sister(s) Family Medical History: Cancer Father Family Medical History: Myocardial Infarction (LA) Additional Family Medical History / Comment(s): Father at 40 of a LA. Mother Family Medical History: CVA/TIA Additional Family Medical History / Comment(s): Mother had a CVA Medications and Allergies Home Medications Medication Instructions Recorded Confirmed Type Ezetimibe [Zetia] 10 mg PO DAILY 11/14/13 09/06/17 History Furosemide [Lasix] 40 mg PO DAILY 11/14/13 09/06/17 History glipiZIDE [Glucotrol] 20 mg PO BID 11/14/13 09/06/17 History Nitroglycerin Sl Tabs [Nitrostat] 0.4 mg SUBLINGUAL Q5M PRN 07/20/15 09/06/17 History Atorvastatin Calcium [Lipitor] 40 mg PO HS #1 tab 08/04/15 09/06/17 Rx HYDROcodone/APAP 5-325MG [[place] 1 tab PO Q6HR PRN 06/13/16 09/06/17 History 5-325] Amitriptyline HCl [Elavil] 50 mg PO HS 02/04/17 09/06/17 History Metoprolol Tartrate [Lopressor] 50 mg PO BID #60 tab 02/09/17 09/06/17 Rx Verapamil [Isoptin] 40 mg PO BID #60 tab 02/09/17 09/06/17 Rx Gabapentin 400 mg PO DAILY 06/18/17 09/06/17 History Gabapentin 800 mg PO HS 06/18/17 09/06/17 History Albuterol Inhaler [Ventolin Hfa 2 puff INHALATION RT-Q4H PRN 09/06/17 09/06/17 History Inhaler] Aspirin [Adult Low Dose Aspirin EC] 81 mg PO DAILY 09/06/17 09/06/17 History Linagliptin [Tradjenta] 5 mg PO DAILY 09/06/17 09/06/17 History Allergies Allergy/AdvReac Type Severity Reaction Status Date / Time Penicillins Allergy Rash/Hives Verified 09/06/17 19:21 Physical Exam Vitals: Vital Signs Temp Pulse Resp BP Pulse Ox 09/07/17 12:23 77 09/07/17 12:14 73 09/07/17 10:00 74 16 156/100 98 09/07/17 09:00 76 16 113/54 94 L 09/07/17 08:52 81 09/07/17 08:39 78 09/07/17 08:00 78 16 115/56 99 09/07/17 06:46 72 18 124/53 97 09/07/17 06:00 88 18 111/53 100 09/07/17 05:00 76 20 100/56 99 09/07/17 04:00 97.3 F L 77 18 107/53 99 09/07/17 03:10 77 18 117/58 99 09/07/17 02:10 74 18 96/46 100 09/07/17 01:19 80 18 112/69 100 09/07/17 00:37 80 09/07/17 00:33 76 18 129/59 100 09/07/17 00:14 76 09/06/17 22:27 79 18 111/52 98 09/06/17 22:22 82 09/06/17 22:09 74 09/06/17 20:30 20 09/06/17 20:24 74 18 129/54 99 09/06/17 18:57 97.9 F 78 18 127/65 86 L Intake and Output 09/06/17 09/07/17 09/07/17 22:59 06:59 14:59 Intake Total 200 1000 Output Total 325 75 Balance -125 925 Intake: Intake, IV Titration 200 1000 Amount Sodium Chloride 0.9% 1, 200 000 ml @ 100 mls/hr IV . Q10H STA Rx#:[id number] Sodium Chloride 0.9% 1, 1000 000 ml @ 999 mls/hr IV . Q1H1M ONE Rx#:[id number] Output: Urine 325 75 Uretheral ([place]) 200 Other: Weight 113.398 kg The patient appeared well nourished and normally developed. The patient is morbidly obese and she is calm and comfortable. No signs of any respiratory distress. Vital signs as documented. Head exam is unremarkable. No scleral icterus or corneal arcus noted. Neck is without jugular venous distension, thyromegaly, or carotid bruits. Carotid upstrokes are brisk bilaterally. Lungs are clear to auscultation and percussion. Cardiac exam reveals the PMI to be normally sized and situated. Rhythm is regular. First and second heart sounds normal. There is a systolic ejection murmur grade 4/6 heard throughout the precordium mainly in the left lateral sternal border, rubs or gallops. Abdominal exam reveals normal bowel sounds, no masses, no organomegaly and no aortic enlargement. Extremities are nonedematous and both femoral and pedal pulses are normal. Results - Laboratory Findings CBC and BMP: 09/07/17 05:57 09/07/17 11:46 PT/INR, D-dimer PT 10.1 sec (9.0-12.0) 09/06/17 20:16 INR 1.0 (<1.2) 09/06/17 20:16 D-Dimer 6.56 mg/L FEU (<0.60) H 09/06/17 20:16 Abnormal lab findings: Abnormal Labs 09/06/17 09/06/17 09/06/17 20:16 20:16 20:16 WBC 17.0 H RBC Hgb 10.5 L Hct 33.2 L MCHC Neutrophils # 13.6 H Monocytes # D-Dimer 6.56 H Sodium 133 L Potassium 7.7 H* Chloride 96 L Carbon Dioxide 16 L BUN 84 H* Creatinine 6.90 H* Glucose 54 L POC Glucose (mg/dL) Plasma Lactic Acid Russel Calcium 8.1 L Total Bilirubin AST 61 H Total Creatine Kinase CK-MB (CK-2) Total Protein 6.1 L Albumin 3.2 L Urine Appearance Urine Protein Urine Blood Ur Leukocyte Esterase Urine RBC Urine WBC Urine WBC Clumps Urine Bacteria Hyaline Casts Urine Mucus 09/06/17 09/06/17 09/06/17 20:16 20:16 21:48 WBC RBC Hgb Hct MCHC Neutrophils # Monocytes # D-Dimer Sodium Potassium 7.7 H* Chloride Carbon Dioxide BUN Creatinine Glucose POC Glucose (mg/dL) Plasma Lactic Acid Russel 3.8 H* Calcium Total Bilirubin AST Total Creatine Kinase 1264 H CK-MB (CK-2) 6.8 H* Total Protein Albumin Urine Appearance Urine Protein Urine Blood Ur Leukocyte Esterase Urine RBC Urine WBC Urine WBC Clumps Urine Bacteria Hyaline Casts Urine Mucus 09/06/17 09/06/17 09/07/17 22:14 22:30 00:48 WBC RBC Hgb Hct MCHC Neutrophils # Monocytes # D-Dimer Sodium Potassium Chloride Carbon Dioxide BUN Creatinine Glucose POC Glucose (mg/dL) 203 H 128 H Plasma Lactic Acid Russel Calcium Total Bilirubin AST Total Creatine Kinase CK-MB (CK-2) Total Protein Albumin Urine Appearance Turbid H Urine Protein 2+ H Urine Blood Moderate H Ur Leukocyte Esterase Large H Urine RBC 9 H Urine WBC >182 H Urine WBC Clumps Many H Urine Bacteria Many H Hyaline Casts 25 H Urine Mucus Rare H 09/07/17 09/07/17 09/07/17 02:00 02:00 02:00 WBC 15.4 H RBC 3.46 L Hgb 9.2 L Hct 30.6 L MCHC 30.0 L Neutrophils # 11.7 H Monocytes # 1.1 H D-Dimer Sodium 136 L Potassium 6.0 H Chloride Carbon Dioxide 15 L BUN 86 H* Creatinine 6.40 H* Glucose 114 H POC Glucose (mg/dL) Plasma Lactic Acid Russel 6.0 H* Calcium 7.7 L Total Bilirubin AST 69 H Total Creatine Kinase CK-MB (CK-2) Total Protein 5.2 L Albumin 2.7 L Urine Appearance Urine Protein Urine Blood Ur Leukocyte Esterase Urine RBC Urine WBC Urine WBC Clumps Urine Bacteria Hyaline Casts Urine Mucus 09/07/17 09/07/17 09/07/17 05:57 05:57 05:57 WBC 14.5 H RBC 3.37 L Hgb 9.1 L Hct 29.0 L MCHC Neutrophils # 11.2 H Monocytes # D-Dimer Sodium Potassium 6.0 H Chloride Carbon Dioxide 16 L BUN 86 H* Creatinine 6.23 H* Glucose POC Glucose (mg/dL) Plasma Lactic Acid Russel 5.5 H* Calcium 7.2 L Total Bilirubin 0.1 L AST 57 H Total Creatine Kinase CK-MB (CK-2) Total Protein 5.1 L Albumin 2.6 L Urine Appearance Urine Protein Urine Blood Ur Leukocyte Esterase Urine RBC Urine WBC Urine WBC Clumps Urine Bacteria Hyaline Casts Urine Mucus - Diagnostic Findings Chest x-ray: image reviewed Assessment and Plan Assessment: Impression: #1 Sepsis secondary to urinary tract infection. Cultures are pending. Initiated on ceftriaxone. Received 3 L of fluid resuscitation thus far. #2 Previous history of urinary tract infection secondary to Klebsiella pneumoniae and E. coli. #3 Acute renal failure secondary to UTI and dehydration. Initial creatinine 6.4. Current creatinine 6.23. #4 Acute hyperkalemia secondary to acute renal failure. Initial potassium 7.7. Current potassium 5.1. #5 Lactic acidosis secondary to above, initial lactic acid 6.0 improved currently 1.2. #6 Anion gap metabolic acidosis secondary to acute renal failure and urinary tract infection. #7 Morbid obesity. #8 Diabetes mellitus, type II. #9 History of chronic obstructive pulmonary disease secondary to a remote history of chronic tobacco dependence. Currently on albuterol on a as-needed basis in the outpatient setting. #10 Hyperlipidemia. #11 Osteoarthritis. #12 History of hypertension. #13 Chronic back pain with previous laminectomy and decompression involving the lumbosacral spine. #14 Chronic neck pain. #15 Cardiac murmur with previous echocardiogram revealing preserved left ventricular systolic function. Vandana: The patient was seen and evaluated by Dr. Palomares. Her chest x-ray, VQ scan, computed tomography scan and labs were all reviewed. We'll give an additional liter bolus. Continue with ceftriaxone. Continue bicarb drip. Nephrology is on the case as well. We will transfer to the intensive care unit once a bed is available. We will continue to follow closely and make further recommendations based on her clinical status. I, the cosigning physician, performed a history & physical examination of the patient. Lungs sounds are clear. Maintaining good O2 saturations in the 90s on 2 L/m per nasal cannula. I discussed the assessment and plan of care with my nurse practitioner, Morena Felix. I attest to the above note as dictated by her. Time with Patient: Greater than 30 <Negrito Palomares - Last Filed: 09/07/17 16:07> Physical Exam Vitals: Vital Signs Temp Pulse Resp BP Pulse Ox 09/07/17 15:55 72 09/07/17 15:46 71 09/07/17 12:23 77 09/07/17 12:14 73 09/07/17 12:00 98 09/07/17 11:20 16 09/07/17 10:00 74 16 156/100 98 09/07/17 09:00 76 16 113/54 94 L 09/07/17 08:52 81 09/07/17 08:39 78 09/07/17 08:00 78 16 115/56 99 09/07/17 06:46 72 18 124/53 97 09/07/17 06:00 88 18 111/53 100 09/07/17 05:00 76 20 100/56 99 09/07/17 04:00 97.3 F L 77 18 107/53 99 09/07/17 03:10 77 18 117/58 99 09/07/17 02:10 74 18 96/46 100 09/07/17 01:19 80 18 112/69 100 09/07/17 00:37 80 09/07/17 00:33 76 18 129/59 100 09/07/17 00:14 76 09/06/17 22:27 79 18 111/52 98 09/06/17 22:22 82 09/06/17 22:09 74 09/06/17 20:30 20 09/06/17 20:24 74 18 129/54 99 09/06/17 18:57 97.9 F 78 18 127/65 86 L Intake and Output 09/07/17 09/07/17 09/07/17 06:59 14:59 22:59 Intake Total 200 1270 Output Total 325 575 Balance -125 695 Intake: IV 270 Dextrose 5% in Water 1, 70 000 ml @ 70 mls/hr IV . [id number] LEIGH ANN with Sodium Bicarb (1 Meq/ml) 150 ml Rx#:[id number] Sodium Chloride 0.9% 1, 200 000 ml @ 100 mls/hr IV . Q10H STA Rx#:[id number] Intake, IV Titration 200 1000 Amount Sodium Chloride 0.9% 1, 200 000 ml @ 100 mls/hr IV . Q10H STA Rx#:[id number] Sodium Chloride 0.9% 1, 1000 000 ml @ 999 mls/hr IV . Q1H1M ONE Rx#:[id number] Output: Urine 325 575 Uretheral ([place]) 200 Other: Voiding Method Indwelling Catheter Results - Laboratory Findings CBC and BMP: 09/07/17 05:57 09/07/17 11:46 PT/INR, D-dimer PT 10.1 sec (9.0-12.0) 09/06/17 20:16 INR 1.0 (<1.2) 09/06/17 20:16 D-Dimer 6.56 mg/L FEU (<0.60) H 09/06/17 20:16 Abnormal lab findings: Abnormal Labs 09/06/17 09/06/17 09/06/17 20:16 20:16 20:16 WBC 17.0 H RBC Hgb 10.5 L Hct 33.2 L MCHC Neutrophils # 13.6 H Monocytes # D-Dimer 6.56 H Sodium 133 L Potassium 7.7 H* Chloride 96 L Carbon Dioxide 16 L BUN 84 H* Creatinine 6.90 H* Glucose 54 L POC Glucose (mg/dL) Plasma Lactic Acid Russel Calcium 8.1 L Total Bilirubin AST 61 H Total Creatine Kinase CK-MB (CK-2) Total Protein 6.1 L Albumin 3.2 L Urine Appearance Urine Protein Urine Blood Ur Leukocyte Esterase Urine RBC Urine WBC Urine WBC Clumps Urine Bacteria Hyaline Casts Urine Mucus 09/06/17 09/06/17 09/06/17 20:16 20:16 21:48 WBC RBC Hgb Hct MCHC Neutrophils # Monocytes # D-Dimer Sodium Potassium 7.7 H* Chloride Carbon Dioxide BUN Creatinine Glucose POC Glucose (mg/dL) Plasma Lactic Acid Russel 3.8 H* Calcium Total Bilirubin AST Total Creatine Kinase 1264 H CK-MB (CK-2) 6.8 H* Total Protein Albumin Urine Appearance Urine Protein Urine Blood Ur Leukocyte Esterase Urine RBC Urine WBC Urine WBC Clumps Urine Bacteria Hyaline Casts Urine Mucus 09/06/17 09/06/17 09/07/17 22:14 22:30 00:48 WBC RBC Hgb Hct MCHC Neutrophils # Monocytes # D-Dimer Sodium Potassium Chloride Carbon Dioxide BUN Creatinine Glucose POC Glucose (mg/dL) 203 H 128 H Plasma Lactic Acid Russel Calcium Total Bilirubin AST Total Creatine Kinase CK-MB (CK-2) Total Protein Albumin Urine Appearance Turbid H Urine Protein 2+ H Urine Blood Moderate H Ur Leukocyte Esterase Large H Urine RBC 9 H Urine WBC >182 H Urine WBC Clumps Many H Urine Bacteria Many H Hyaline Casts 25 H Urine Mucus Rare H 09/07/17 09/07/17 09/07/17 02:00 02:00 02:00 WBC 15.4 H RBC 3.46 L Hgb 9.2 L Hct 30.6 L MCHC 30.0 L Neutrophils # 11.7 H Monocytes # 1.1 H D-Dimer Sodium 136 L Potassium 6.0 H Chloride Carbon Dioxide 15 L BUN 86 H* Creatinine 6.40 H* Glucose 114 H POC Glucose (mg/dL) Plasma Lactic Acid Russel 6.0 H* Calcium 7.7 L Total Bilirubin AST 69 H Total Creatine Kinase CK-MB (CK-2) Total Protein 5.2 L Albumin 2.7 L Urine Appearance Urine Protein Urine Blood Ur Leukocyte Esterase Urine RBC Urine WBC Urine WBC Clumps Urine Bacteria Hyaline Casts Urine Mucus 09/07/17 09/07/17 09/07/17 05:57 05:57 05:57 WBC 14.5 H RBC 3.37 L Hgb 9.1 L Hct 29.0 L MCHC Neutrophils # 11.2 H Monocytes # D-Dimer Sodium Potassium 6.0 H Chloride Carbon Dioxide 16 L BUN 86 H* Creatinine 6.23 H* Glucose POC Glucose (mg/dL) Plasma Lactic Acid Russel 5.5 H* Calcium 7.2 L Total Bilirubin 0.1 L AST 57 H Total Creatine Kinase CK-MB (CK-2) Total Protein 5.1 L Albumin 2.6 L Urine Appearance Urine Protein Urine Blood Ur Leukocyte Esterase Urine RBC Urine WBC Urine WBC Clumps Urine Bacteria Hyaline Casts Urine Mucus 09/07/17 13:26 WBC RBC Hgb Hct MCHC Neutrophils # Monocytes # D-Dimer Sodium Potassium Chloride Carbon Dioxide BUN Creatinine Glucose POC Glucose (mg/dL) 59 L Plasma Lactic Acid Russel Calcium Total Bilirubin AST Total Creatine Kinase CK-MB (CK-2) Total Protein Albumin Urine Appearance Urine Protein Urine Blood Ur Leukocyte Esterase Urine RBC Urine WBC Urine WBC Clumps Urine Bacteria Hyaline Casts Urine Mucus Assessment and Plan Assessment: Is a joint evaluation was done in the burst department along with a nurse practitioner. This is a very similar hospitalization for this patient was admitted for the same reason approximately 6-8 months ago. She has a urine checked infection with secondary sepsis. She is also in acute kidney injury/ acute kidney failure. The patient is been aggressively resuscitated IV fluids. Renal function is improving. There may be an underlying urine checked infection and for that reason the patient on Rocephin 2 g every 24 hours. No altered mentation. Hemodynamically stable on no pressors. Lactic acid level improved. We'll continue to follow. We'll move the patient to the intensive care unit once a bed is available. Ultrasound the kidneys have been ordered. Nephrology is on the case. Monitor urine output. Continue IV fluids. We'll follow.
[2017-09-07 13:36] LABS: Glucose,Whole Blood 82 mg/dL (75-99)
[2017-09-07 13:36] LABS: Glucose,Whole Blood 59 mg/dL (75-99)
[2017-09-07] MEDS ORDERED: NOREPINEPHRIN 4 MG-0.9% NS PMX 4 MG/250 ML ML IV SCH (14:15)
--- NOTE | 2017-09-07 14:20 | P.HPIM ---
History of Present Illness H&P Date: 09/07/17 Chief Complaint: weakness 82-year-old female who presented to the emergency room with a chief complaint of worsening weakness. Patient's health has been on the decline over the last 3 weeks per the who states she was evaluated at her PCP office 3 weeks ago and has since become progressively more ill and weak. She has not been eating. Denies pain or discomfort. Denies chest pain or pressure. Denies shortness of breath. The patient has a history of coronary artery disease, COPD, diabetes mellitus, gastroesophageal reflux disease, hyperlipidemia, hypertension, myocardial infarction, anxiety, depression,and osteoarthritis. The patient was recently admitted in June 2017 to [facility] with NSTEMI, right lower lobe pneumonia, and exacerbation of COPD. During that hospitalization, cardiology recommended cardiac catheterization and patient declined. Chest x-ray: rotating exam. Cardiomegaly. Correlate for possible pulmonary artery hypertension. Difficult to exclude basilar airspace disease, edema, atelectasis or effusion. CT of the brain: negative for an acute process. ultrasound abdomen and bladder: negative for ascites. Incidental finding of small right pleural effusion. Correlate for hepatocellular disease, hepatic steatosis. gallbladder may be contracted. Spleen is not visualized. Laboratory data: WBC 17.0. Hemoglobin 10.5. Platelet count 394. sodium 133. Potassium 7.7. BUN 84. Creatinine 6.90. Glucose 54. D-dimer: 6.56 lactic acid: 3.8 on admission Urinalysis reveals: turbid yellow urine, 2+ proteinuria, moderate blood, large leukocyte esterase, RBC 9, WBC greater than 182, many WBC clumps, many bacteria , 25 hyaline cast, rare mucus. The patient was admitted to the hospital under the care of Dr. Montoya. Consultations were placed to nephrology, cardiology, and pulmonary for ICU management. Review of Systems GENERAL: positive for generalized weakness.Patient denies fever. Denies chills. EYES: Denies blurred vision. Denies vision changes. Denies eye pain. EARS, NOSE, MOUTH, & THROAT: Denies headache. Denies sore throat. Denies ear pain. RESPIRATORY: Denies cough. Denies shortness of breath. Denies sputum production. Denies hemoptysis. CARDIOVASCULAR: Denies chest pain or pressure. Denies palpitations. Denies arrhythmias. GASTROINTESTINAL: positive for emesis 2.Denies abdominal pain. Denies diarrhea. Denies constipation. Denies heartburn. Denies blood in the stool. GENITOURINARY: Denies urinary frequency. Denies burning. Denies dysuria. Denies cloudy urine. Denies blood in the urine. MUSCULOSKELETAL: Denies myalgias. Denies joint swelling. Denies decreased range of motion beyond patients baseline. INTEGUMENTARY: Denies pruitis. Denies rash. PSYCHIATRIC: Denies suicidal or homicial ideations. ENDOCRINE: Denies weight change. Denies polydipsia. Denies polyuria. HEMATOLOGIC: Denies bleeding disorders. Past Medical History Past Medical History: Coronary Artery Disease (CAD), Chest Pain / Angina, COPD, Diabetes Mellitus, GERD/Reflux, Hyperlipidemia, Hypertension, Myocardial Infarction ([place]), Osteoarthritis ([place]) Additional Past Medical History / Comment(s): 06/18/1712/18/17 Admitted to [facility] with NSTEMI, R lower lobe pneumonia and exacerbation of her COPD. Pt refused heart catheterization. Other hx; NIDDM type II, bilateral peripheral neuropathy in feet, hiatal hernia, arthritis multiple joints, chronic low back pain, lower leg edema, cataracts bilaterally. Last Myocardial Infarction Date:: 06/17/18 History of Any Multi-Drug Resistant Organisms: None Reported Past Surgical History: Back Surgery, Joint Replacement, Orthopedic Surgery Additional Past Surgical History / Comment(s): 07/29/15 lumbar laminectomy decompression fusion L3-4 and L5-S1 with cell saver, lumbar instrumentation removal L4-5, L4-L5 laminectomy, ZULY KNEE REPLACEMENTS,ORIF RT ANKLE, CERVICAL FUSION, zuly rotator cuff repair, surgery to zuly wrist carpal tunnel releases, pain procedures, L breast lumpectomy-benign, bilateral legs varicose vein stripping. Past Anesthesia/Blood Transfusion Reactions: No Reported Reaction Additional Past Anesthesia/Blood Transfusion Reaction / Comment(s): Pt states she has never received blood. Smoking Status: Former smoker - Past Family History Father Brother(s) Family Medical History: Cancer Mother Sister(s) Family Medical History: Cancer Father Family Medical History: Myocardial Infarction ([place]) Additional Family Medical History / Comment(s): Father at 40 of a [place]. Mother Family Medical History: CVA/TIA Additional Family Medical History / Comment(s): Mother had a CVA Medications and Allergies Home Medications Medication Instructions Recorded Confirmed Type Ezetimibe [Zetia] 10 mg PO DAILY 11/14/13 09/06/17 History Furosemide [Lasix] 40 mg PO DAILY 11/14/13 09/06/17 History glipiZIDE [Glucotrol] 20 mg PO BID 11/14/13 09/06/17 History Nitroglycerin Sl Tabs [Nitrostat] 0.4 mg SUBLINGUAL Q5M PRN 07/20/15 09/06/17 History Atorvastatin Calcium [Lipitor] 40 mg PO HS #1 tab 08/04/15 09/06/17 Rx HYDROcodone/APAP 5-325MG [[place] 1 tab PO Q6HR PRN 06/13/16 09/06/17 History 5-325] Amitriptyline HCl [Elavil] 50 mg PO HS 02/04/17 09/06/17 History Metoprolol Tartrate [Lopressor] 50 mg PO BID #60 tab 02/09/17 09/06/17 Rx Verapamil [Isoptin] 40 mg PO BID #60 tab 02/09/17 09/06/17 Rx Gabapentin 400 mg PO DAILY 06/18/17 09/06/17 History Gabapentin 800 mg PO HS 06/18/17 09/06/17 History Albuterol Inhaler [Ventolin Hfa 2 puff INHALATION RT-Q4H PRN 09/06/17 09/06/17 History Inhaler] Aspirin [Adult Low Dose Aspirin EC] 81 mg PO DAILY 09/06/17 09/06/17 History Linagliptin [Tradjenta] 5 mg PO DAILY 09/06/17 09/06/17 History Allergies Allergy/AdvReac Type Severity Reaction Status Date / Time Penicillins Allergy Rash/Hives Verified 09/06/17 19:21 Physical Exam Vitals: Vital Signs Temp Pulse Resp BP Pulse Ox 09/07/17 12:23 77 09/07/17 12:14 73 09/07/17 10:00 74 16 156/100 98 09/07/17 09:00 76 16 113/54 94 L 09/07/17 08:52 81 09/07/17 08:39 78 09/07/17 08:00 78 16 115/56 99 09/07/17 06:46 72 18 124/53 97 09/07/17 06:00 88 18 111/53 100 09/07/17 05:00 76 20 100/56 99 09/07/17 04:00 97.3 F L 77 18 107/53 99 09/07/17 03:10 77 18 117/58 99 09/07/17 02:10 74 18 96/46 100 09/07/17 01:19 80 18 112/69 100 09/07/17 00:37 80 09/07/17 00:33 76 18 129/59 100 09/07/17 00:14 76 09/06/17 22:27 79 18 111/52 98 09/06/17 22:22 82 09/06/17 22:09 74 09/06/17 20:30 20 09/06/17 20:24 74 18 129/54 99 09/06/17 18:57 97.9 F 78 18 127/65 86 L Intake and Output 09/06/17 09/07/17 09/07/17 22:59 06:59 14:59 Intake Total 200 1000 Output Total 325 75 Balance -125 925 Intake: Intake, IV Titration 200 1000 Amount Sodium Chloride 0.9% 1, 200 000 ml @ 100 mls/hr IV . Q10H STA Rx#:[id number] Sodium Chloride 0.9% 1, 1000 000 ml @ 999 mls/hr IV . Q1H1M ONE Rx#:[id number] Output: Urine 325 75 Uretheral (Hylton) 200 Other: Weight 113.398 kg GENERAL: This is a 82-year-old female in no apparent distress at the time of examination. HEENT: Head is atraumatic, normocephalic. Pupils are equal, round, and reactive to light. Sclerae anicteric. Conjunctivae are clear. Mucus membranes of the mouth are moist. Neck is supple. RESPIRATORY: Clear to ausculation. No wheezes, rales, or rhonchi. No use of accessory muscles. Patient maintaining oxygen saturation greater than 92%. No chest wall tenderness is noted on palpation or with deep breathing. CARDIOVASCULAR: Regular rate and rhythm. S1 and S2 noted. Systolic murmur auscultated. No JVD noted. No S3 or S4 noted. GASTROINTESTINAL: No distention noted. Abdomen soft and round. Normal active bowel sounds auscultated x 4 quadrants. No pain or tenderness noted upon palpation. INTEGUMENTARY: No cyanosis. No jaundice. No rashes noted. No cellulitis noted. EXTREMITIES: 2+ peripheral pulses. No evidence of peripheral edema. No calf tenderness noted. NEUROLOGIC: Cranial nerves II-XII intact. PSYCHIATRIC: Awake, alert, and oriented X 3. Appropriate affect. Intact judgement and insight. Results CBC & Chem 7: 09/07/17 05:57 09/07/17 11:46 Labs: Abnormal Lab Results - Last 24 Hours (Table) 09/06/17 09/06/17 09/06/17 Range/Units 20:16 20:16 20:16 WBC 17.0 H (3.8-10.6) k/uL RBC (3.80-5.40) m/uL Hgb 10.5 L (11.4-16.0) gm/dL Hct 33.2 L (34.0-46.0) % MCHC (31.0-37.0) g/dL Neutrophils # 13.6 H (1.3-7.7) k/uL Monocytes # (0-1.0) k/uL D-Dimer 6.56 H (<0.60) mg/L FEU Sodium 133 L (137-145) mmol/L Potassium 7.7 H* (3.5-5.1) mmol/L Chloride 96 L (98-107) mmol/L Carbon Dioxide 16 L (22-30) mmol/L BUN 84 H* (7-17) mg/dL Creatinine 6.90 H* (0.52-1.04) mg/dL Glucose 54 L (74-99) mg/dL POC Glucose (mg/dL) (75-99) mg/dL Plasma Lactic Acid Russel (0.7-2.0) mmol/L Calcium 8.1 L (8.4-10.2) mg/dL Total Bilirubin (0.2-1.3) mg/dL AST 61 H (14-36) U/L Total Creatine Kinase (30-135) U/L CK-MB (CK-2) (0.0-2.4) ng/mL Total Protein 6.1 L (6.3-8.2) g/dL Albumin 3.2 L (3.5-5.0) g/dL Urine Appearance (Clear) Urine Protein (Negative) Urine Blood (Negative) Ur Leukocyte Esterase (Negative) Urine RBC (0-5) /hpf Urine WBC (0-5) /hpf Urine WBC Clumps (None) /hpf Urine Bacteria (None) /hpf Hyaline Casts (0-2) /lpf Urine Mucus (None) /hpf 09/06/17 09/06/17 09/06/17 Range/Units 20:16 20:16 21:48 WBC (3.8-10.6) k/uL RBC (3.80-5.40) m/uL Hgb (11.4-16.0) gm/dL Hct (34.0-46.0) % MCHC (31.0-37.0) g/dL Neutrophils # (1.3-7.7) k/uL Monocytes # (0-1.0) k/uL D-Dimer (<0.60) mg/L FEU Sodium (137-145) mmol/L Potassium 7.7 H* (3.5-5.1) mmol/L Chloride (98-107) mmol/L Carbon Dioxide (22-30) mmol/L BUN (7-17) mg/dL Creatinine (0.52-1.04) mg/dL Glucose (74-99) mg/dL POC Glucose (mg/dL) (75-99) mg/dL Plasma Lactic Acid Russel 3.8 H* (0.7-2.0) mmol/L Calcium (8.4-10.2) mg/dL Total Bilirubin (0.2-1.3) mg/dL AST (14-36) U/L Total Creatine Kinase 1264 H (30-135) U/L CK-MB (CK-2) 6.8 H* (0.0-2.4) ng/mL Total Protein (6.3-8.2) g/dL Albumin (3.5-5.0) g/dL Urine Appearance (Clear) Urine Protein (Negative) Urine Blood (Negative) Ur Leukocyte Esterase (Negative) Urine RBC (0-5) /hpf Urine WBC (0-5) /hpf Urine WBC Clumps (None) /hpf Urine Bacteria (None) /hpf Hyaline Casts (0-2) /lpf Urine Mucus (None) /hpf 09/06/17 09/06/17 09/07/17 Range/Units 22:14 22:30 00:48 WBC (3.8-10.6) k/uL RBC (3.80-5.40) m/uL Hgb (11.4-16.0) gm/dL Hct (34.0-46.0) % MCHC (31.0-37.0) g/dL Neutrophils # (1.3-7.7) k/uL Monocytes # (0-1.0) k/uL D-Dimer (<0.60) mg/L FEU Sodium (137-145) mmol/L Potassium (3.5-5.1) mmol/L Chloride (98-107) mmol/L Carbon Dioxide (22-30) mmol/L BUN (7-17) mg/dL Creatinine (0.52-1.04) mg/dL Glucose (74-99) mg/dL POC Glucose (mg/dL) 203 H 128 H (75-99) mg/dL Plasma Lactic Acid Russel (0.7-2.0) mmol/L Calcium (8.4-10.2) mg/dL Total Bilirubin (0.2-1.3) mg/dL AST (14-36) U/L Total Creatine Kinase (30-135) U/L CK-MB (CK-2) (0.0-2.4) ng/mL Total Protein (6.3-8.2) g/dL Albumin (3.5-5.0) g/dL Urine Appearance Turbid H (Clear) Urine Protein 2+ H (Negative) Urine Blood Moderate H (Negative) Ur Leukocyte Esterase Large H (Negative) Urine RBC 9 H (0-5) /hpf Urine WBC >182 H (0-5) /hpf Urine WBC Clumps Many H (None) /hpf Urine Bacteria Many H (None) /hpf Hyaline Casts 25 H (0-2) /lpf Urine Mucus Rare H (None) /hpf 09/07/17 09/07/17 09/07/17 Range/Units 02:00 02:00 02:00 WBC 15.4 H (3.8-10.6) k/uL RBC 3.46 L (3.80-5.40) m/uL Hgb 9.2 L (11.4-16.0) gm/dL Hct 30.6 L (34.0-46.0) % MCHC 30.0 L (31.0-37.0) g/dL Neutrophils # 11.7 H (1.3-7.7) k/uL Monocytes # 1.1 H (0-1.0) k/uL D-Dimer (<0.60) mg/L FEU Sodium 136 L (137-145) mmol/L Potassium 6.0 H (3.5-5.1) mmol/L Chloride (98-107) mmol/L Carbon Dioxide 15 L (22-30) mmol/L BUN 86 H* (7-17) mg/dL Creatinine 6.40 H* (0.52-1.04) mg/dL Glucose 114 H (74-99) mg/dL POC Glucose (mg/dL) (75-99) mg/dL Plasma Lactic Acid Russel 6.0 H* (0.7-2.0) mmol/L Calcium 7.7 L (8.4-10.2) mg/dL Total Bilirubin (0.2-1.3) mg/dL AST 69 H (14-36) U/L Total Creatine Kinase (30-135) U/L CK-MB (CK-2) (0.0-2.4) ng/mL Total Protein 5.2 L (6.3-8.2) g/dL Albumin 2.7 L (3.5-5.0) g/dL Urine Appearance (Clear) Urine Protein (Negative) Urine Blood (Negative) Ur Leukocyte Esterase (Negative) Urine RBC (0-5) /hpf Urine WBC (0-5) /hpf Urine WBC Clumps (None) /hpf Urine Bacteria (None) /hpf Hyaline Casts (0-2) /lpf Urine Mucus (None) /hpf 09/07/17 09/07/17 09/07/17 Range/Units 05:57 05:57 05:57 WBC 14.5 H (3.8-10.6) k/uL RBC 3.37 L (3.80-5.40) m/uL Hgb 9.1 L (11.4-16.0) gm/dL Hct 29.0 L (34.0-46.0) % MCHC (31.0-37.0) g/dL Neutrophils # 11.2 H (1.3-7.7) k/uL Monocytes # (0-1.0) k/uL D-Dimer (<0.60) mg/L FEU Sodium (137-145) mmol/L Potassium 6.0 H (3.5-5.1) mmol/L Chloride (98-107) mmol/L Carbon Dioxide 16 L (22-30) mmol/L BUN 86 H* (7-17) mg/dL Creatinine 6.23 H* (0.52-1.04) mg/dL Glucose (74-99) mg/dL POC Glucose (mg/dL) (75-99) mg/dL Plasma Lactic Acid Russel 5.5 H* (0.7-2.0) mmol/L Calcium 7.2 L (8.4-10.2) mg/dL Total Bilirubin 0.1 L (0.2-1.3) mg/dL AST 57 H (14-36) U/L Total Creatine Kinase (30-135) U/L CK-MB (CK-2) (0.0-2.4) ng/mL Total Protein 5.1 L (6.3-8.2) g/dL Albumin 2.6 L (3.5-5.0) g/dL Urine Appearance (Clear) Urine Protein (Negative) Urine Blood (Negative) Ur Leukocyte Esterase (Negative) Urine RBC (0-5) /hpf Urine WBC (0-5) /hpf Urine WBC Clumps (None) /hpf Urine Bacteria (None) /hpf Hyaline Casts (0-2) /lpf Urine Mucus (None) /hpf Microbiology - Last 24 Hours (Table) 09/06/17 22:14 Urine Culture - Preliminary Urine,Catheterized Thrombosis Risk Factor Assmnt - Choose All That Apply Any of the Below Risk Factors Present?: Yes Each Factor Represents 1 point: Abnormal pulmonary function (COPD), Obesity ( BMI >25) Other Risk Factors: Yes Each Risk Factor Represents 3 Points: Age 75 years or older Other congenital or acquired thrombophilia - If yes, enter type in comment: No Thrombosis Risk Factor Assessment Total Risk Factor Score: 5 Thrombosis Risk Factor Assessment Level: High Risk Assessment and Plan Plan: ASSESSMENT: Sepsis, present on admission, suspect secondary to urinary tract infection Urinary tract infection, present on admission, cultures pending Acute renal failure, creatinine 6.9 on admission, baseline creatinine 0.8-1.0, suspect secondary to UTI and dehydration Severe hyperkalemia, potassium 7.7 on admission, secondary to acute renal failure Elevated d-dimer, VQ scan shows low probability for PE Elevated lactic acid, peaked at 6.0, improved to 1.2 with aggressive fluid resuscitation Recent hospitalization in June 2017 for NSTEMI, right lower lobe pneumonia, and exacerbation of COPD, cardiology recommended catheterization at that time and patient declined Diabetes mellitus, type II, hemoglobin A1c pending History of coronary artery disease Chronic obstructive pulmonary disease Essential hypertension Hyperlipidemia Anxiety, unspecified Depression, unspecified Morbid obesity: BMI 44.3 PLAN: ICU management per Dr. Palomares Patient is currently on her fourth liter of fluid. May start levophed per Dr. Montoya Cardiology on consult. Appreciate recommendations and input Nephrology on consult. Appreciate recommendations and input monitor renal function. Monitor potassium. Await results of cultures continue Rocephin 1 g every 24 hours. patient received a one-time dose of clindamycin Continue indwelling urinary catheter. Accurate I&O. Home meds as appropriate Monitor labs GI prophylaxis: Protonix 40 mg PO Daily DVT prophylaxis: Heparin 5000 units subcu every 8 hours Monitor vital signs and address as appropriate Further recommendations pending patient's course Nurse practitioner note has been reviewed by physician. Signing provider agrees with the documented findings, assessment, and plan of care.
--- NOTE | 2017-09-07 15:06 | CONS ---
CONSULTATION REASON FOR CONSULT: Renal failure, hyperkalemia. HISTORY OF PRESENT ILLNESS: Patient is an 82-year-old female who was admitted to the hospital with the complaints of weakness. The patient had seen her primary care physician about 3 days ago and she states she has continued to feel poorly. She had some shortness of breath. The patient denied any severe abdominal pain. No significant urinary symptoms. Patient denies any prior history of kidney diseases. She was found to have a serum creatinine of 6.4 mg/dL. Previous creatinine in June was 1.17 mg/dL. Patient denies use of any nonsteroidal anti-inflammatory agents. She was hypotensive with systolic of 98 to 99 mmHg. Patient has received IV fluid boluses and she is currently on 100 mL/hour of saline. A Hylton catheter has been placed. Patient has had urine output, about 700 to 800 mL thus far. I am not sure how much urine was obtained on initial Hylton catheter placement. PAST MEDICAL HISTORY: 1. Type 2 diabetes. 2. Hypertension. 3. Hyperlipidemia. 4. Osteoarthritis. 5. Gastroesophageal reflux disease. PAST SURGICAL HISTORY: 1. Lumbar laminectomy, decompression, fusion of the spine. 2. Knee arthroplasties. 3. ORIF. 4. Cataract surgery. 5. Rotator cuff repair. 6. Surgery on the wrist. MEDICATIONS PRIOR TO ADMISSION: 1. Lasix. 2. Zetia. 3. Nitro. 4. Elavil. 5. Gabapentin. 6. Aspirin. 7. Tradjenta. 8. Lipitor. 9. Lopressor. 10.Isoptin. ALLERGIES: PENICILLIN, which causes rash and hives. REVIEW OF SYSTEMS: As per HPI. Other systems negative. PHYSICAL EXAMINATION: Patient is currently comfortable, awake. She is alert and oriented x3, not in any acute distress. Blood pressure is 156/100; previously it was 113/54. Heart rate about 73 per minute. She is afebrile. EXAMINATION OF THE HEART: S1, S2. EXAMINATION OF LUNGS: Bilateral breath sounds are heard. ABDOMEN: Soft, non-tender, obese. Examination of lower extremities shows no significant edema. 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 LABS: Sodium 137, potassium 6.0, chloride 99. CO2 was 16, BUN 86, serum creatinine 6.23, hemoglobin 9.1 g/dL. Lactic acid was elevated at 6.0. UA shows 2+ protein, WBCs more than 182. ASSESSMENT: 1. Acute kidney injury, most likely acute tubular necrosis, currently non-oliguric with good urine output. Previous creatinine was 1.17 on 06/22/2017. There is no evidence of hydronephrosis on the ultrasound and no nephrotoxic agents on board. I will continue with IV hydration for now. 2. Severe hyperkalemia associated with acute kidney injury, currently improving. 3. Sepsis from urinary tract infection; maintain patient on antibiotics. Continue IV fluids. Repeat labs in a.m. 4. [id number] metabolic acidosis secondary to lactic acidosis and renal failure. Will start bicarb drip. 5. Urinary tract infection. Urine culture is pending. PLAN: Start IV bicarb. Continue Hylton catheter. Repeat labs in a.m. Avoid nephrotoxic agents. Continue Rocephin. Decrease dose of Neurontin. Thank you for this consultation. Will continue to follow the patient with you during her hospitalization. MMODL / IJN: [id number] /
[2017-09-07] MEDS: HEPARIN SODIUM,PORCINE 5,000 UNIT/ML 1 ML VIAL SQ SCH (18:20)
[2017-09-07] MEDS: DEXTROSE 50%-WATER 50 ML SYRINGE IVP STA ×3 (19:35→23:04)
[2017-09-07 19:47] LABS: Glucose,Whole Blood 53 mg/dL (75-99)
[2017-09-07 20:36] LABS: Glucose,Whole Blood 84 mg/dL (75-99)
[2017-09-07 21:32] LABS: Glucose,Whole Blood 78 mg/dL (75-99)
[2017-09-07] MEDS: ATORVASTATIN 40 MG TAB PO SCH (22:28)
[2017-09-07] MEDS: AMITRIPTYLINE HCL 50 MG TAB PO SCH (22:29)
[2017-09-07 23:05] LABS: Glucose,Whole Blood 61 mg/dL (75-99)
[2017-09-07] MEDS: cefTRIAXone IN SWFI 1,000 MG/10 ML SYRINGE IVP SCH (23:08)
[2017-09-07 23:36] LABS: Glucose,Whole Blood 128 mg/dL (75-99)
[2017-09-08 00:40] LABS: Glucose,Whole Blood 115 mg/dL (75-99)
[2017-09-08] MEDS: HEPARIN SODIUM,PORCINE 5,000 UNIT/ML 1 ML VIAL SQ SCH ×4 (01:34→23:59)
[2017-09-08 02:42] LABS: Glucose,Whole Blood 106 mg/dL (75-99)
[2017-09-08 04:28] LABS: Glucose,Whole Blood 109 mg/dL (75-99)
[2017-09-08] MEDS: DEXTROSE 5% IN WATER 1,000 ML with SODIUM BICARB (1 MEQ/ML) 150 ML IV SCH (06:31)
[2017-09-08] MEDS: ALBUTEROL NEBULIZED 2.5 MG/3 ML INHALATION PRN ×2 (06:55→11:44)
[2017-09-08 07:07] LABS: Basophils % (A) 0 %; Eosinophils # (A) 0.1 k/uL (0-0.7); Eosinophils % (A) 1 %; HCT 26.8 % (34.0-46.0); HGB 8.5 gm/dL (11.4-16.0); Hypochromasia Slight; Lymphocytes # (A) 1.5 k/uL (1.0-4.8); Lymphocytes % (A) 15 %; MCHC 31.9 g/dL (31.0-37.0); MCV 84.8 fL (80.0-100.0); Mean Platelet Volume 7.3; Monocytes # (A) 0.8 k/uL (0-1.0); Monocytes % (A) 8 %; Neutrophils # (A) 7.2 k/uL (1.3-7.7); Neutrophils % (A) 75 %; Platelet Count 292 k/uL (150-450); RBC 3.16 m/uL (3.80-5.40); RDW 14.7 % (11.5-15.5); WBC 9.7 k/uL (3.8-10.6)
--- NOTE | 2017-09-08 07:12 | XR ---
EXAMINATION TYPE: XR chest 1V DATE OF EXAM: 09/08/2017 CLINICAL HISTORY: Difficulty breathing progress study. TECHNIQUE: Single AP portable upright view of the chest is obtained. COMPARISON: Chest x-ray from 2 days earlier and older studies. FINDINGS: Improved alignment is seen on current study. There is persistent mild cardiomegaly with at herosclerotic thoracic aorta. There is new right basilar opacity. Left lung is clear. No large pleura l effusion or pneumothorax is seen bilaterally. Anterior fusion plate lower cervical spine is partial ly imaged. IMPRESSION: Cardiomegaly with developing right basilar infiltrate and/or atelectasis and possible sma ll right pleural effusion. Progress study is advised.
[2017-09-08 07:16] LABS: Glucose,Whole Blood 116 mg/dL (75-99)
[2017-09-08 07:30] LABS: Calcium 6.6 mg/dL (8.4-10.2); Potassium 4.1 mmol/L (3.5-5.1)
[2017-09-08 08:27] LABS: Glucose,Whole Blood 148 mg/dL (75-99)
[2017-09-08] MEDS: VERAPAMIL 40 MG TAB PO SCH (09:16)
[2017-09-08] MEDS: METOPROLOL TARTRATE 50 MG TAB PO SCH ×2 (09:17→20:12)
[2017-09-08] MEDS: PANTOPRAZOLE 40 MG TABLET PO SCH (09:18)
[2017-09-08] MEDS: ASPIRIN 81 MG PO SCH (09:19)
[2017-09-08] MEDS: EZETIMIBE 10 MG TAB PO SCH (09:20)
[2017-09-08] MEDS: LINAGLIPTIN 5 MG TABLET PO SCH ×2 (09:21→09:25)
[2017-09-08 11:04] LABS: Glucose,Whole Blood 178 mg/dL (75-99)
--- NOTE | 2017-09-08 12:44 | P.PN ---
Subjective Progress Note Date: 09/08/17 And examined for the follow-up of acute kidney injury. Still on bicarb drip and her tolerating oral diet. Hylton is in making good amount of urine Objective - Vital Signs Vital signs: Vital Signs Temp 98.9 F 09/08/17 07:49 Pulse 80 09/08/17 11:56 Resp 18 09/08/17 11:03 BP 99/55 09/08/17 11:03 Pulse Ox 24 L 09/08/17 11:03 Intake & Output 09/07/17 09/08/17 09/08/17 18:59 06:59 18:59 Intake Total 2620 1050 140 Output Total 1325 950 100 Balance 1295 100 40 Intake: IV 1620 1050 140 Dextrose 5% in Water 1, 420 1050 140 000 ml @ 70 mls/hr IV . [id number] LEIGH ANN with Sodium Bicarb (1 Meq/ml) 150 ml Rx#:[id number] Sodium Chloride 0.9% 1, 200 000 ml @ 100 mls/hr IV . Q10H STA Rx#:[id number] Sodium Chloride 0.9% 1, 1000 000 ml @ 999 mls/hr IV . Q1H1M ONE Rx#:[id number] Intake, IV Titration 1000 Amount Sodium Chloride 0.9% 1, 1000 000 ml @ 999 mls/hr IV . Q1H1M ONE Rx#:[id number] Output: Urine 1325 950 100 Other: Voiding Method Indwelling Catheter Indwelling Catheter Indwelling Catheter - Exam Lying in bed no acute distress S1-S2 heard Lungs clear Hylton No edema - Labs CBC & Chem 7: 09/08/17 06:47 09/08/17 06:47 Labs: Abnormal Lab Results - Last 24 Hours (Table) 09/07/17 09/07/17 09/07/17 Range/Units 13:26 19:33 22:38 RBC (3.80-5.40) m/uL Hgb (11.4-16.0) gm/dL Hct (34.0-46.0) % BUN (7-17) mg/dL Creatinine (0.52-1.04) mg/dL Glucose (74-99) mg/dL POC Glucose (mg/dL) 59 L 53 L 61 L (75-99) mg/dL Calcium (8.4-10.2) mg/dL Phosphorus (2.5-4.5) mg/dL 09/07/17 09/08/17 09/08/17 Range/Units 23:34 00:38 02:38 RBC (3.80-5.40) m/uL Hgb (11.4-16.0) gm/dL Hct (34.0-46.0) % BUN (7-17) mg/dL Creatinine (0.52-1.04) mg/dL Glucose (74-99) mg/dL POC Glucose (mg/dL) 128 H 115 H 106 H (75-99) mg/dL Calcium (8.4-10.2) mg/dL Phosphorus (2.5-4.5) mg/dL 09/08/17 09/08/17 09/08/17 Range/Units 04:27 06:47 06:47 RBC 3.16 L (3.80-5.40) m/uL Hgb 8.5 L (11.4-16.0) gm/dL Hct 26.8 L (34.0-46.0) % BUN 83 H* (7-17) mg/dL Creatinine 5.54 H* (0.52-1.04) mg/dL Glucose 111 H (74-99) mg/dL POC Glucose (mg/dL) 109 H (75-99) mg/dL Calcium 6.6 L (8.4-10.2) mg/dL Phosphorus 8.6 H* (2.5-4.5) mg/dL 09/08/17 09/08/17 09/08/17 Range/Units 07:02 08:25 11:00 RBC (3.80-5.40) m/uL Hgb (11.4-16.0) gm/dL Hct (34.0-46.0) % BUN (7-17) mg/dL Creatinine (0.52-1.04) mg/dL Glucose (74-99) mg/dL POC Glucose (mg/dL) 116 H 148 H 178 H (75-99) mg/dL Calcium (8.4-10.2) mg/dL Phosphorus (2.5-4.5) mg/dL Microbiology - Last 24 Hours (Table) 09/06/17 22:14 Urine Culture - Preliminary Urine,Catheterized Gram Neg Bacilli Assessment and Plan Assessment: Impression: #1 acute kidney injury multifactorial. ATN and obstructive uropathy. #2 severe hyperkalemia status post Hylton resolved. #3 metabolic acidosis resolved #4 urinary tract infection on antibiotics Recommendations: #1. Sodium bicarbonate drip change it to normal saline at 75 mL an hour. #2 monitor renal function closely #3 avoid nephrotoxic agents and hypotensive episodes #4 blood pressure is low normal. Currently on metoprolol and verapamil discontinue verapamil. #5 Repeat labs in the morning.
--- NOTE | 2017-09-08 15:32 | P.PN ---
Subjective Progress Note Date: 09/08/17 This is a very pleasant 82-year-old female patient who follows with Dr. Hartman as her primary care physician. She has a history of diabetes mellitus, gastroesophageal reflux disease, hyperlipidemia, hypertension, osteoarthritis, chronic low back pain, morbid obesity. She has also been seen by our group in the past for critical care management secondary to urinary tract infection with sepsis cultures positive for Klebsiella pneumoniae and E. coli. She does have a 20 year pack per day smoking history however quit back in 1974. She is maintained on albuterol in the outpatient setting. She presented here to the emergency room last evening with a 3 day history of progressive weakness, poor appetite, poor oral intake. She was also vomiting. She did have chills. No significant abdominal discomfort, no headache. She does admit to pain on urination and decreased urine output. No significant shortness of breath, cough or congestion. Chest x-ray revealed evidence of cardiomegaly but no clear evidence of pneumonia. VQ scan revealed low probability for pulmonary embolism. Computed tomography scan of the brain revealed no acute intracranial process. Abdominal ultrasound revealed hepatic steatosis, small right pleural effusion. There is no evidence of hydronephrosis. Lab results revealed WBC 17.0, hemoglobin 10.5, sodium 133, potassium 7.7, chloride 96 CO2 16, anion gap 21, BUN 84 creatinine 6.90. Lactic acid 3.8. Urinalysis revealed moderate blood large leukocytes greater than 182 WBCs with many bacteria. She has received 1 dose of clindamycin 1 dose of Rocephin. She's had 3 L of fluid resuscitation. She's been treated for her hyperkalemia and the current potassium is 5.1. She is seen today in consultation in the end emergency room. She is awake and alert in no acute distress. She remains quite weak however. Urine culture is in progress. Current lab results reveal a WBC of 15.4. Hemoglobin 9.2. Gastric acid improved to 1.2. Sodium 136. Potassium 5.1. Creatinine 6.40. Nephrology has been consulted. She is currently afebrile. Maintaining good O2 saturations in the 90s on 2 L/m per nasal cannula. She has been hemodynamically stable. Not requiring any pressors at this point. Currently on ceftriaxone. On 09/08/2017 I'm seeing this patient for a follow-up. The patient is still in the emergency room awaiting a room for her on the medical surgical floor. Clinically improved and she is much more awake and alert compared to yesterday. She is following commands and answering questions. Hylton catheter is in place. The urine culture that showing gram-negative bacillus. The patient on IV Rocephin and she is receiving 1 g every 24 hours. Patient is also receiving IV fluids and she is currently on normal saline today to 75 mL an hour. The patient is showing improvement in the renal function with fluid resuscitation. The creatinine is down to 5.54. Potassium level is down to 4.1. White cell count is also improved from 17 down to 9.7. No cough. No sputum production. No chest pain. No shortness of breath. She is resting comfortably in bed. I have downgraded this patient to go to the medical surgical floor with telemetry. Objective - Vital Signs Vital signs: Vital Signs Temp 97.8 F 09/08/17 15:14 Pulse 86 09/08/17 15:14 Resp 18 09/08/17 15:14 BP 141/86 09/08/17 15:14 Pulse Ox 99 09/08/17 15:14 Intake & Output 09/07/17 09/08/17 09/08/17 18:59 06:59 18:59 Intake Total 2620 1050 140 Output Total 1325 950 100 Balance 1295 100 40 Intake: IV 1620 1050 140 Dextrose 5% in Water 1, 420 1050 140 000 ml @ 70 mls/hr IV . [id number] LEIGH ANN with Sodium Bicarb (1 Meq/ml) 150 ml Rx#:[id number] Sodium Chloride 0.9% 1, 200 000 ml @ 100 mls/hr IV . Q10H STA Rx#:[id number] Sodium Chloride 0.9% 1, 1000 000 ml @ 999 mls/hr IV . Q1H1M ONE Rx#:[id number] Intake, IV Titration 1000 Amount Sodium Chloride 0.9% 1, 1000 000 ml @ 999 mls/hr IV . Q1H1M ONE Rx#:[id number] Output: Urine 1325 950 100 Other: Voiding Method Indwelling Catheter Indwelling Catheter Indwelling Catheter - Exam The patient appeared well nourished and normally developed. The patient is morbidly obese and she is calm and comfortable. No signs of any respiratory distress. Vital signs as documented. Head exam is unremarkable. No scleral icterus or corneal arcus noted. Neck is without jugular venous distension, thyromegaly, or carotid bruits. Carotid upstrokes are brisk bilaterally. Lungs are clear to auscultation and percussion. Cardiac exam reveals the PMI to be normally sized and situated. Rhythm is regular. First and second heart sounds normal. There is a systolic ejection murmur grade 4/6 heard throughout the precordium mainly in the left lateral sternal border, rubs or gallops. Abdominal exam reveals normal bowel sounds, no masses, no organomegaly and no aortic enlargement. Extremities are nonedematous and both femoral and pedal pulses are normal. The patient has chronic edema lower extremities bilaterally. No open wounds or sores or cellulitis. - Labs CBC & Chem 7: 09/08/17 06:47 09/08/17 06:47 Labs: Abnormal Lab Results - Last 24 Hours (Table) 09/07/17 09/07/17 09/07/17 Range/Units 19:33 22:38 23:34 RBC (3.80-5.40) m/uL Hgb (11.4-16.0) gm/dL Hct (34.0-46.0) % BUN (7-17) mg/dL Creatinine (0.52-1.04) mg/dL Glucose (74-99) mg/dL POC Glucose (mg/dL) 53 L 61 L 128 H (75-99) mg/dL Calcium (8.4-10.2) mg/dL Phosphorus (2.5-4.5) mg/dL 09/08/17 09/08/17 09/08/17 Range/Units 00:38 02:38 04:27 RBC (3.80-5.40) m/uL Hgb (11.4-16.0) gm/dL Hct (34.0-46.0) % BUN (7-17) mg/dL Creatinine (0.52-1.04) mg/dL Glucose (74-99) mg/dL POC Glucose (mg/dL) 115 H 106 H 109 H (75-99) mg/dL Calcium (8.4-10.2) mg/dL Phosphorus (2.5-4.5) mg/dL 09/08/17 09/08/17 09/08/17 Range/Units 06:47 06:47 07:02 RBC 3.16 L (3.80-5.40) m/uL Hgb 8.5 L (11.4-16.0) gm/dL Hct 26.8 L (34.0-46.0) % BUN 83 H* (7-17) mg/dL Creatinine 5.54 H* (0.52-1.04) mg/dL Glucose 111 H (74-99) mg/dL POC Glucose (mg/dL) 116 H (75-99) mg/dL Calcium 6.6 L (8.4-10.2) mg/dL Phosphorus 8.6 H* (2.5-4.5) mg/dL 09/08/17 09/08/17 Range/Units 08:25 11:00 RBC (3.80-5.40) m/uL Hgb (11.4-16.0) gm/dL Hct (34.0-46.0) % BUN (7-17) mg/dL Creatinine (0.52-1.04) mg/dL Glucose (74-99) mg/dL POC Glucose (mg/dL) 148 H 178 H (75-99) mg/dL Calcium (8.4-10.2) mg/dL Phosphorus (2.5-4.5) mg/dL Microbiology - Last 24 Hours (Table) 09/06/17 22:14 Urine Culture - Preliminary Urine,Catheterized Gram Neg Bacilli Assessment and Plan Assessment: Impression: #1 Sepsis secondary to urinary tract infection. The urine culture that showing gram-negative bacillus. Blood cultures still pending.. Initiated on ceftriaxone. Received 3 L of fluid resuscitation thus far. The patient is currently on 75 mL of normal saline and the patient is responding well with improvement in mentation, overall physical condition, and the renal function. #2 Previous history of urinary tract infection secondary to Klebsiella pneumoniae and E. coli. #3 Acute renal failure secondary to UTI and dehydration. The patient is improving with fluid resuscitation and the creatinine is on the declining trend. #4 Acute hyperkalemia ,recovered #5 Lactic acidosis secondary to above, initial lactic acid 6.0 improved currently 1.2. #6 Anion gap metabolic acidosis secondary to acute renal failure and urinary tract infection. #7 Morbid obesity. #8 Diabetes mellitus, type II. #9 History of chronic obstructive pulmonary disease secondary to a remote history of chronic tobacco dependence. Currently on albuterol on a as-needed basis in the outpatient setting. #10 Hyperlipidemia. #11 Osteoarthritis. #12 History of hypertension. #13 Chronic back pain with previous laminectomy and decompression involving the lumbosacral spine. #14 Chronic neck pain. #15 Cardiac murmur with previous echocardiogram revealing preserved left ventricular systolic function. Plan Keep the patient on IV fluids. Normal saline today to 75 mL an hour. Repeat labs in a.m. Awaiting results of the blood culture and the results of the cultures and sensitivities from the urine culture. Continue IV Rocephin. Hemodynamically stable on no pressors. Monitor the blood sugar. We'll continue to follow make further recommendations based on her progress.
[2017-09-08 17:09] LABS: Glucose,Whole Blood 199 mg/dL (75-99)
[2017-09-08] MEDS: SODIUM CHLORIDE 0.9% 1,000 ML IV SCH ×2 (17:41→23:56)
[2017-09-08] MEDS: HYDROcodone/APAP 5-325MG 1 EACH TAB PO PRN (18:12)
[2017-09-08] MEDS: ATORVASTATIN 40 MG TAB PO SCH (20:12)
[2017-09-08] MEDS: cefTRIAXone IN SWFI 1,000 MG/10 ML SYRINGE IVP SCH (20:12)
[2017-09-08] MEDS: AMITRIPTYLINE HCL 50 MG TAB PO SCH (20:12)
[2017-09-08 20:58] LABS: Glucose,Whole Blood 181 mg/dL (75-99)
[2017-09-09] MEDS: PANTOPRAZOLE 40 MG TABLET PO SCH (06:27)
[2017-09-09 07:04] LABS: Basophils % (A) 0 %; Eosinophils # (A) 0.2 k/uL (0-0.7); Eosinophils % (A) 1 %; HCT 25.7 % (34.0-46.0); HGB 8.2 gm/dL (11.4-16.0); Lymphocytes % (A) 16 %; MCH 26.8 pg (25.0-35.0); MCV 83.9 fL (80.0-100.0); Mean Platelet Volume 7.1; Monocytes % (A) 8 %; Neutrophils # (A) 8.8 k/uL (1.3-7.7); Neutrophils % (A) 73 %; Platelet Count 348 k/uL (150-450); RBC 3.06 m/uL (3.80-5.40); RDW 14.2 % (11.5-15.5); WBC 12.2 k/uL (3.8-10.6)
[2017-09-09 07:19] LABS: Calcium 6.8 mg/dL (8.4-10.2); Potassium 3.7 mmol/L (3.5-5.1)
[2017-09-09] MEDS: LINAGLIPTIN 5 MG TABLET PO SCH (09:59)
[2017-09-09] MEDS: METOPROLOL TARTRATE 50 MG TAB PO SCH (09:59)
[2017-09-09] MEDS: ASPIRIN 81 MG PO SCH (09:59)
[2017-09-09] MEDS: EZETIMIBE 10 MG TAB PO SCH (09:59)
[2017-09-09] MEDS: HEPARIN SODIUM,PORCINE 5,000 UNIT/ML 1 ML VIAL SQ SCH ×2 (10:00→15:48)
--- NOTE | 2017-09-09 10:07 | P.PN ---
Subjective Progress Note Date: 09/09/17 And examined for the follow-up of acute kidney injury. Hylton is in making good amount of urine. Objective - Vital Signs Vital signs: Vital Signs Temp 98.7 F 09/09/17 09:40 Pulse 90 09/09/17 09:40 Resp 16 09/09/17 09:40 BP 112/55 09/09/17 09:40 Pulse Ox 90 L 09/09/17 09:40 Intake & Output 09/08/17 09/09/17 09/09/17 17:59 06:59 18:59 Intake Total Output Total Balance Weight Intake: IV Dextrose 5% in Water 1, 000 ml @ 70 mls/hr IV . [id number] LEIGH ANN with Sodium Bicarb (1 Meq/ml) 150 ml Rx#:[id number] Output: Urine Other: Voiding Method # Voids - Exam Lying in bed no acute distress S1-S2 heard Lungs clear Hylton No edema - Labs CBC & Chem 7: 09/09/17 06:27 09/09/17 06:27 Labs: Abnormal Lab Results - Last 24 Hours (Table) 09/08/17 09/08/17 09/08/17 Range/Units 11:00 17:04 20:56 WBC (3.8-10.6) k/uL RBC (3.80-5.40) m/uL Hgb (11.4-16.0) gm/dL Hct (34.0-46.0) % Neutrophils # (1.3-7.7) k/uL Chloride (98-107) mmol/L BUN (7-17) mg/dL Creatinine (0.52-1.04) mg/dL Glucose (74-99) mg/dL POC Glucose (mg/dL) 178 H 199 H 181 H (75-99) mg/dL Calcium (8.4-10.2) mg/dL Phosphorus (2.5-4.5) mg/dL 09/09/17 09/09/17 Range/Units 06:27 06:27 WBC 12.2 H (3.8-10.6) k/uL RBC 3.06 L (3.80-5.40) m/uL Hgb 8.2 L (11.4-16.0) gm/dL Hct 25.7 L (34.0-46.0) % Neutrophils # 8.8 H (1.3-7.7) k/uL Chloride 96 L (98-107) mmol/L BUN 63 H (7-17) mg/dL Creatinine 3.70 H (0.52-1.04) mg/dL Glucose 160 H (74-99) mg/dL POC Glucose (mg/dL) (75-99) mg/dL Calcium 6.8 L (8.4-10.2) mg/dL Phosphorus 6.0 H (2.5-4.5) mg/dL Microbiology - Last 24 Hours (Table) 09/06/17 22:14 Urine Culture - Final Urine,Catheterized Escherichia coli Assessment and Plan Assessment: Impression: #1 acute kidney injury multifactorial. ATN and obstructive uropathy. Renal function improving #2 severe hyperkalemia status post Hylton resolved. #3 metabolic acidosis resolved #4 urinary tract infection with ESBL E.coli Recommendations: #1.Continue with normal saline at 75 mL an hour. He nonfunctioning improving #2 discontinue ceftriaxone for ESBL E. coli. If using meropenem use 500 mg every 12 hourly. Other option is using fosfomycin oral 3 doses. #3 avoid nephrotoxic agents and hypotensive episodes #4 blood pressure is low normal. #5 Repeat labs in the morning.
--- NOTE | 2017-09-09 11:28 | CONS ---
CONSULTATION Concepcion Newberry is an 82-year-old female who presented to the emergency room on September 06 with weakness. Cardiology was probably consulted on account of the elevated cardiac enzymes. Upon my examination and interview, the patient denied any chest discomfort. No dizziness or lightheadedness. According to the nurse yesterday, she had reduced in mentation. At this time, the patient has no chest pain. A 12-lead ECG was reviewed and shows sinus rhythm with PACs. Nonspecific ST-T abnormalities. She was hyperkalemic on admission. LV function in the past has been normal. PAST HISTORY: Of diabetes type 2, hypertension, dyslipidemia, obesity, and GERD. PAST SURGERY: Back surgery, knee arthroplasties, open reduction and internal fixation, cataract surgery. MEDICATIONS: This was reviewed as documented in the chart and includes atorvastatin, Lopressor. She has a known history of coronary artery disease. ALLERGIES: To PENICILLIN. REVIEW OF SYSTEMS: Not available. EXAMINATION: She is afebrile 98.7 degrees Fahrenheit, respirations are normal. Pulse rate in the 80s. Blood pressure 112/55 mmHg. Neck examination is difficult. She has a short thick neck. She is obese. She appears to be comfortable. Heart sounds are soft. There is soft systolic murmur. Breath sounds are reduced bilaterally. Abdomen is soft. IMPRESSION: 1. The patient admitted with urosepsis, hyperkalemia. She has advanced chronic kidney disease with an elevated creatinine. 2. Admitted with weakness. CPK is elevated with troponin was normal. SUGGEST: 1. Consider 2D echo and Doppler study. 2. In view of normal troponin, at this time I would not pursue any further cardiac workup. Her troponin is normal despite the fact that her creatinine is elevated. 3. Continue on statins and aspirin. The patient may go to the medical floor for cardiac standpoint. MMODL / IJN: [id number] /
[2017-09-09 12:16] LABS: Glucose,Whole Blood 197 mg/dL (75-99)
[2017-09-09] MEDS: ALBUTEROL NEBULIZED 2.5 MG/3 ML INHALATION PRN (12:41)
[2017-09-09] MEDS: MEROPENEM 500 MG in SODIUM CHLORIDE 0.9% 50 ML IVPB SCH (12:41)
[2017-09-09] MEDS: INSULIN ASPART 100 UNIT/ML 1 ML 10 ML VIAL SQ SCH ×2 (12:42→17:49)
[2017-09-09] MEDS: SODIUM CHLORIDE 0.9% 1,000 ML IV SCH (12:42)
[2017-09-09 14:28] LABS: Phosphorus 8.6 mg/dL (2.5-4.5)
--- NOTE | 2017-09-09 15:15 | P.PN ---
Subjective Progress Note Date: 09/09/17 This is a very pleasant 82-year-old female patient who follows with Dr. Hartman as her primary care physician. She has a history of diabetes mellitus, gastroesophageal reflux disease, hyperlipidemia, hypertension, osteoarthritis, chronic low back pain, morbid obesity. She has also been seen by our group in the past for critical care management secondary to urinary tract infection with sepsis cultures positive for Klebsiella pneumoniae and E. coli. She does have a 20 year pack per day smoking history however quit back in 1974. She is maintained on albuterol in the outpatient setting. She presented here to the emergency room last evening with a 3 day history of progressive weakness, poor appetite, poor oral intake. She was also vomiting. She did have chills. No significant abdominal discomfort, no headache. She does admit to pain on urination and decreased urine output. No significant shortness of breath, cough or congestion. Chest x-ray revealed evidence of cardiomegaly but no clear evidence of pneumonia. VQ scan revealed low probability for pulmonary embolism. Computed tomography scan of the brain revealed no acute intracranial process. Abdominal ultrasound revealed hepatic steatosis, small right pleural effusion. There is no evidence of hydronephrosis. Lab results revealed WBC 17.0, hemoglobin 10.5, sodium 133, potassium 7.7, chloride 96 CO2 16, anion gap 21, BUN 84 creatinine 6.90. Lactic acid 3.8. Urinalysis revealed moderate blood large leukocytes greater than 182 WBCs with many bacteria. She has received 1 dose of clindamycin 1 dose of Rocephin. She's had 3 L of fluid resuscitation. She's been treated for her hyperkalemia and the current potassium is 5.1. She is seen today in consultation in the end emergency room. She is awake and alert in no acute distress. She remains quite weak however. Urine culture is in progress. Current lab results reveal a WBC of 15.4. Hemoglobin 9.2. Gastric acid improved to 1.2. Sodium 136. Potassium 5.1. Creatinine 6.40. Nephrology has been consulted. She is currently afebrile. Maintaining good O2 saturations in the 90s on 2 L/m per nasal cannula. She has been hemodynamically stable. Not requiring any pressors at this point. Currently on ceftriaxone. On 09/08/2017 I'm seeing this patient for a follow-up. The patient is still in the emergency room awaiting a room for her on the medical surgical floor. Clinically improved and she is much more awake and alert compared to yesterday. She is following commands and answering questions. Hylton catheter is in place. The urine culture that showing gram-negative bacillus. The patient on IV Rocephin and she is receiving 1 g every 24 hours. Patient is also receiving IV fluids and she is currently on normal saline today to 75 mL an hour. The patient is showing improvement in the renal function with fluid resuscitation. The creatinine is down to 5.54. Potassium level is down to 4.1. White cell count is also improved from 17 down to 9.7. No cough. No sputum production. No chest pain. No shortness of breath. She is resting comfortably in bed. I have downgraded this patient to go to the medical surgical floor with telemetry. On 09/09/2017, the patient is somewhat encephalopathic and confused. She is verbal and communicating and she is not agitated. She is afebrile. The renal function continues to improve. The patient has been resuscitated IV fluids and there has been steady improvement in creatinine which has dropped from a baseline of 6.9 down to 3.7. BNP is also improving is down to 63. The patient' s white cell count is also dropped from 17 down to 12. Urine culture came back positive for E. coli that that [employer] to be an ESBL and following that IV Rocephin was discontinued and the patient was switched to Merrem. No emesis. No nausea or vomiting. No diarrhea. Hylton catheter in place. Afebrile hemodynamically stable. Pulse ox is around 90% on room air. No back pain. No flank pain. No hematuria. No headaches. No focal neurological deficit. She is still making good urine for now. Objective - Vital Signs Vital signs: Vital Signs Temp 98.7 F 09/09/17 12:00 Pulse 84 09/09/17 12:58 Resp 16 09/09/17 12:00 BP 115/54 09/09/17 12:00 Pulse Ox 90 L 09/09/17 12:00 Intake & Output 09/08/17 09/09/17 09/09/17 17:59 06:59 18:59 Intake Total 700 Output Total Balance 700 Weight Intake: IV 600 Dextrose 5% in Water 1, 000 ml @ 70 mls/hr IV . [id number] LEIGH ANN with Sodium Bicarb (1 Meq/ml) 150 ml Rx#:[id number] Sodium Chloride 0.9% 1, 600 000 ml @ 75 mls/hr IV . [id number] LEIGH ANN Rx#:[id number] Oral 100 Output: Urine Other: Voiding Method Indwelling Catheter # Voids - Exam The patient appeared well nourished and normally developed. The patient is morbidly obese and she is calm and comfortable. No signs of any respiratory distress. Vital signs as documented. Head exam is unremarkable. No scleral icterus or corneal arcus noted. Neck is without jugular venous distension, thyromegaly, or carotid bruits. Carotid upstrokes are brisk bilaterally. Lungs are clear to auscultation and percussion. Cardiac exam reveals the PMI to be normally sized and situated. Rhythm is regular. First and second heart sounds normal. There is a systolic ejection murmur grade 4/6 heard throughout the precordium mainly in the left lateral sternal border, rubs or gallops. Abdominal exam reveals normal bowel sounds, no masses, no organomegaly and no aortic enlargement. Extremities are nonedematous and both femoral and pedal pulses are normal. The patient has chronic edema lower extremities bilaterally. No open wounds or sores or cellulitis. Neurologically, the patient is moving all 4 extremities. She is delirious and somewhat encephalopathic and is probably related to her underlying urine checked infection and sepsis. - Labs CBC & Chem 7: 09/09/17 06:27 09/09/17 06:27 Labs: Abnormal Lab Results - Last 24 Hours (Table) 09/08/17 09/08/17 09/08/17 Range/Units 06:47 17:04 20:56 WBC (3.8-10.6) k/uL RBC (3.80-5.40) m/uL Hgb (11.4-16.0) gm/dL Hct (34.0-46.0) % Neutrophils # (1.3-7.7) k/uL Chloride (98-107) mmol/L BUN 83 H* (7-17) mg/dL Creatinine (0.52-1.04) mg/dL Glucose (74-99) mg/dL POC Glucose (mg/dL) 199 H 181 H (75-99) mg/dL Calcium (8.4-10.2) mg/dL Phosphorus 8.6 H* (2.5-4.5) mg/dL 09/09/17 09/09/17 09/09/17 Range/Units 06:27 06:27 12:09 WBC 12.2 H (3.8-10.6) k/uL RBC 3.06 L (3.80-5.40) m/uL Hgb 8.2 L (11.4-16.0) gm/dL Hct 25.7 L (34.0-46.0) % Neutrophils # 8.8 H (1.3-7.7) k/uL Chloride 96 L (98-107) mmol/L BUN 63 H (7-17) mg/dL Creatinine 3.70 H (0.52-1.04) mg/dL Glucose 160 H (74-99) mg/dL POC Glucose (mg/dL) 197 H (75-99) mg/dL Calcium 6.8 L (8.4-10.2) mg/dL Phosphorus 6.0 H (2.5-4.5) mg/dL Microbiology - Last 24 Hours (Table) 09/06/17 22:14 Urine Culture - Final Urine,Catheterized Escherichia coli Assessment and Plan Assessment: Impression: #1 Sepsis secondary to ESBL producing E. coli urinary tract infection.. Currently the patient is on IV meropenem.. #2 Previous history of urinary tract infection secondary to Klebsiella pneumoniae and E. coli. #3 Acute renal failure secondary to UTI and dehydration. The patient is improving with fluid resuscitation and the creatinine is on the declining trend. There is a further improvement in the creatinine yet the [place] has not completely normalized #4 Acute hyperkalemia ,recovered #5 Lactic acidosis secondary to above, initial lactic acid 6.0 improved currently 1.2. #6 altered mental status, metabolic encephalopathy secondary to sepsis and acute kidney injury. Neurologic exam is nonfocal and the patient is moving all 4 extremities without any major limitation. CT of the head that was done in time of admission was within normal limits. #7 Morbid obesity. #8 Diabetes mellitus, type II. #9 History of chronic obstructive pulmonary disease secondary to a remote history of chronic tobacco dependence. Currently on albuterol on a as-needed basis in the outpatient setting. #10 Hyperlipidemia. #11 Osteoarthritis. #12 History of hypertension. #13 Chronic back pain with previous laminectomy and decompression involving the lumbosacral spine. #14 Chronic neck pain. #15 Cardiac murmur with previous echocardiogram revealing preserved left ventricular systolic function. Plan IV Merrem regarding the ESBL producing E. coli. Monitor renal function. Continue fluid resuscitation. Monitor electrolytes. Monitor renal function. Discussed the case with the family. No evidence of pneumonia. No evidence of any pulmonary embolism. VQ scan at time of admission was of a low probability. Nephrology is on the case. We'll continue to follow her overall condition and I would anticipate her altered mentation to improve as the patient's metabolic encephalopathy improves. Monitor renal function. Monitor overall progress.
--- NOTE | 2017-09-09 16:01 | P.PN ---
Subjective Progress Note Date: 09/09/17 Principal diagnosis: Urosepsis with resistant E. coli Patient was found to be mental status changes with urosepsis offending agent found to be resistant E. coli Objective - Vital Signs Vital signs: Vital Signs Temp 99.3 F 09/09/17 15:44 Pulse 96 09/09/17 15:44 Resp 20 09/09/17 15:44 BP 112/52 09/09/17 15:44 Pulse Ox 98 09/09/17 15:44 Intake & Output 09/08/17 09/09/17 09/09/17 17:59 06:59 18:59 Intake Total 900 Output Total 2200 Balance -1300 Weight Intake: IV 600 Dextrose 5% in Water 1, 000 ml @ 70 mls/hr IV . [id number] [facility] with Sodium Bicarb (1 Meq/ml) 150 ml Rx#:[id number] Sodium Chloride 0.9% 1, 600 000 ml @ 75 mls/hr IV . [id number] [facility] Rx#:[id number] Oral 300 Output: Urine 2200 Other: Voiding Method Indwelling Catheter # Voids - Exam General: [Patient awake, alert and oriented times 3. Patient in no acute distress.] HEENT: [PERRL. EOMI. No pharyngeal erythema or exudate.] Neck: [No adenopathy.] Cardiac: [Heart regular in rate and rhythm. No S3. No S4. No clicks, rubs. No murmur.] Lungs: [Clear to auscultation bilaterally.] Abdomen: [No mass. No organomegaly. Bowel sounds presnt and normoactive in all 4 quadrants.] Extremes: Bilateral hallux noted to be erythematous with rubor and this pain consistent with acute exacerbation gouty arthritis : [] Musculoskeletal: [No joint erythema, edema or tenderness.] Skin: [No rash.] Neurologic: [No lateralizing deficits. CN II - XII grossly intact.] Lymphatic: [No adenopathy.] - Labs CBC & Chem 7: 09/09/17 06:27 09/09/17 06:27 Labs: Abnormal Lab Results - Last 24 Hours (Table) 09/08/17 09/08/17 09/08/17 Range/Units 06:47 17:04 20:56 WBC (3.8-10.6) k/uL RBC (3.80-5.40) m/uL Hgb (11.4-16.0) gm/dL Hct (34.0-46.0) % Neutrophils # (1.3-7.7) k/uL Chloride (98-107) mmol/L BUN 83 H* (7-17) mg/dL Creatinine (0.52-1.04) mg/dL Glucose (74-99) mg/dL POC Glucose (mg/dL) 199 H 181 H (75-99) mg/dL Calcium (8.4-10.2) mg/dL Phosphorus 8.6 H* (2.5-4.5) mg/dL 09/09/17 09/09/17 09/09/17 Range/Units 06:27 06:27 12:09 WBC 12.2 H (3.8-10.6) k/uL RBC 3.06 L (3.80-5.40) m/uL Hgb 8.2 L (11.4-16.0) gm/dL Hct 25.7 L (34.0-46.0) % Neutrophils # 8.8 H (1.3-7.7) k/uL Chloride 96 L (98-107) mmol/L BUN 63 H (7-17) mg/dL Creatinine 3.70 H (0.52-1.04) mg/dL Glucose 160 H (74-99) mg/dL POC Glucose (mg/dL) 197 H (75-99) mg/dL Calcium 6.8 L (8.4-10.2) mg/dL Phosphorus 6.0 H (2.5-4.5) mg/dL Microbiology - Last 24 Hours (Table) 09/06/17 22:14 Urine Culture - Final Urine,Catheterized Escherichia coli Assessment and Plan (1) Urinary tract infection Current Visit: Yes Status: Acute Code(s): N39.0 - URINARY TRACT INFECTION, SITE NOT SPECIFIED SNOMED Code(s): 10384565 (2) Elevated d-dimer Current Visit: Yes Status: Acute Code(s): R79.89 - OTHER SPECIFIED ABNORMAL FINDINGS OF BLOOD CHEMISTRY SNOMED Code(s): 846442859 (3) Generalized weakness Current Visit: Yes Status: Acute Code(s): R53.1 - WEAKNESS SNOMED Code(s) : 87251304 Plan: Patient started on meropenem Continue judicious rehydration Anticipate kidney function continuing to improve we'll continue to follow Time with Patient: Greater than 30
[2017-09-09] MEDS: ALBUTEROL NEBULIZED 2.5 MG/3 ML INHALATION SCH ×2 (16:07→19:52)
[2017-09-09 17:10] LABS: Glucose,Whole Blood 216 mg/dL (75-99)
[2017-09-09] MEDS: glipiZIDE 10 MG TAB PO SCH (17:48)
[2017-09-09 20:42] LABS: Glucose,Whole Blood 157 mg/dL (75-99)
[2017-09-09 21:28] LABS: Hemoglobin A1C 6.2 % (4.0-6.0)
[2017-09-10] MEDS: INSULIN ASPART 100 UNIT/ML 1 ML 10 ML VIAL SQ SCH ×5 (00:16→20:40)
[2017-09-10] MEDS: AMITRIPTYLINE HCL 50 MG TAB PO SCH ×2 (00:16→20:40)
[2017-09-10] MEDS: ATORVASTATIN 40 MG TAB PO SCH ×2 (00:16→20:40)
[2017-09-10] MEDS: ACETAMINOPHEN TAB 325 MG TAB PO PRN (00:45)
[2017-09-10] MEDS: MEROPENEM 500 MG in SODIUM CHLORIDE 0.9% 50 ML IVPB SCH ×3 (01:57→20:38)
[2017-09-10] MEDS: HEPARIN SODIUM,PORCINE 5,000 UNIT/ML 1 ML VIAL SQ SCH ×4 (02:03→22:57)
[2017-09-10] MEDS: METOPROLOL TARTRATE 50 MG TAB PO SCH ×3 (04:55→20:40)
[2017-09-10] MEDS: SODIUM CHLORIDE 0.9% 1,000 ML IV SCH ×2 (05:52→20:00)
[2017-09-10 07:22] LABS: Basophils % (A) 0 %; Eosinophils # (A) 0.3 k/uL (0-0.7); Eosinophils % (A) 3 %; HCT 27.8 % (34.0-46.0); HGB 8.7 gm/dL (11.4-16.0); Hypochromasia Slight; Lymphocytes # (A) 2.1 k/uL (1.0-4.8); Lymphocytes % (A) 19 %; MCH 26.9 pg (25.0-35.0); MCHC 31.4 g/dL (31.0-37.0); MCV 85.7 fL (80.0-100.0); Mean Platelet Volume 6.7; Monocytes # (A) 0.6 k/uL (0-1.0); Monocytes % (A) 5 %; Neutrophils # (A) 8.1 k/uL (1.3-7.7); Neutrophils % (A) 71 %; Platelet Count 395 k/uL (150-450); RBC 3.25 m/uL (3.80-5.40); WBC 11.4 k/uL (3.8-10.6)
[2017-09-10 07:39] LABS: Glucose,Whole Blood 137 mg/dL (75-99)
[2017-09-10 07:43] LABS: Calcium 7.6 mg/dL (8.4-10.2); Magnesium 1.9 mg/dL (1.6-2.3); Phosphorus 4.5 mg/dL (2.5-4.5); Potassium 3.5 mmol/L (3.5-5.1)
[2017-09-10] MEDS ORDERED: METOPROLOL TARTRATE 5 MG/5 ML VIAL IVP SCH (08:00)
[2017-09-10] MEDS ORDERED: METOPROLOL TARTRATE 5 MG/5 ML VIAL IVP STA (08:24)
[2017-09-10] MEDS: ALBUTEROL NEBULIZED 2.5 MG/3 ML INHALATION SCH ×4 (09:20→18:58)
--- NOTE | 2017-09-10 09:33 | P.PN ---
Subjective Progress Note Date: 09/10/17 Principal diagnosis: Acute sepsis secondary to ESBL producing E. coli urinary tract infection This is a very pleasant 82-year-old female patient who follows with Dr. Hartman as her primary care physician. She has a history of diabetes mellitus, gastroesophageal reflux disease, hyperlipidemia, hypertension, osteoarthritis, chronic low back pain, morbid obesity. She has also been seen by our group in the past for critical care management secondary to urinary tract infection with sepsis cultures positive for Klebsiella pneumoniae and E. coli. She does have a 20 year pack per day smoking history however quit back in 1974. She is maintained on albuterol in the outpatient setting. She presented here to the emergency room last evening with a 3 day history of progressive weakness, poor appetite, poor oral intake. She was also vomiting. She did have chills. No significant abdominal discomfort, no headache. She does admit to pain on urination and decreased urine output. No significant shortness of breath, cough or congestion. Chest x-ray revealed evidence of cardiomegaly but no clear evidence of pneumonia. VQ scan revealed low probability for pulmonary embolism. Computed tomography scan of the brain revealed no acute intracranial process. Abdominal ultrasound revealed hepatic steatosis, small right pleural effusion. There is no evidence of hydronephrosis. Lab results revealed WBC 17.0, hemoglobin 10.5, sodium 133, potassium 7.7, chloride 96 CO2 16, anion gap 21, BUN 84 creatinine 6.90. Lactic acid 3.8. Urinalysis revealed moderate blood large leukocytes greater than 182 WBCs with many bacteria. She has received 1 dose of clindamycin 1 dose of Rocephin. She's had 3 L of fluid resuscitation. She's been treated for her hyperkalemia and the current potassium is 5.1. She is seen today in consultation in the end emergency room. She is awake and alert in no acute distress. She remains quite weak however. Urine culture is in progress. Current lab results reveal a WBC of 15.4. Hemoglobin 9.2. Gastric acid improved to 1.2. Sodium 136. Potassium 5.1. Creatinine 6.40. Nephrology has been consulted. She is currently afebrile. Maintaining good O2 saturations in the 90s on 2 L/m per nasal cannula. She has been hemodynamically stable. Not requiring any pressors at this point. Currently on ceftriaxone. On 09/08/2017 I'm seeing this patient for a follow-up. The patient is still in the emergency room awaiting a room for her on the medical surgical floor. Clinically improved and she is much more awake and alert compared to yesterday. She is following commands and answering questions. Hylton catheter is in place. The urine culture that showing gram-negative bacillus. The patient on IV Rocephin and she is receiving 1 g every 24 hours. Patient is also receiving IV fluids and she is currently on normal saline today to 75 mL an hour. The patient is showing improvement in the renal function with fluid resuscitation. The creatinine is down to 5.54. Potassium level is down to 4.1. White cell count is also improved from 17 down to 9.7. No cough. No sputum production. No chest pain. No shortness of breath. She is resting comfortably in bed. I have downgraded this patient to go to the medical surgical floor with telemetry. On 09/09/2017, the patient is somewhat encephalopathic and confused. She is verbal and communicating and she is not agitated. She is afebrile. The renal function continues to improve. The patient has been resuscitated IV fluids and there has been steady improvement in creatinine which has dropped from a baseline of 6.9 down to 3.7. BNP is also improving is down to 63. The patient' s white cell count is also dropped from 17 down to 12. Urine culture came back positive for E. coli that that nocturnist physician to be an ESBL and following that IV Rocephin was discontinued and the patient was switched to Merrem. No emesis. No nausea or vomiting. No diarrhea. Hylton catheter in place. Afebrile hemodynamically stable. Pulse ox is around 90% on room air. No back pain. No flank pain. No hematuria. No headaches. No focal neurological deficit. She is still making good urine for now. On 09/10/2017 patient is confused, she is refusing her medications, at times she is agitated, and belligerent. This morning she was noted to be in sinus tach with a rate of 150 BPM. She refused to oral metoprolol, rapid response team was called in regards to the tachycardia. Patient denies any distress, earlier this morning she was also febrile with a temp of 10 1F. Denies any dyspnea, does complain of some pain in her bilateral lower extremities, she states this is not new. She remains on meropenem for the evidence of ESBL producing E. coli in the urine culture. On sounds are clear to auscultation, no rhonchi, no wheezes or rales noted. She is on 2 L per nasal cannula with O2 sat at 99%. Her been is at the bedside, he states the change in mentation is new, and it normally patient is alert oriented, and not confused at the baseline. Today's lab work shows a CBC of 11.4, hemoglobin 8.7, renal profile is improving, BUN is down to 39, and creatinine is 1.89. Patient is nonoliguric, not hypotensive, making adequate amounts of clear yellow urine. At the time of my evaluation patient is afebrile, she is not oriented to place. Plasma lactic acid was 0.8. Patient skin is dry and warm. She is resting in bed, does not appear to be in any acute distress. She is receiving IV hydration in the form of 0.9 normal saline at a rate of 75 ML per hour. Patient is being given IV Lopressor for rate control. Objective - Vital Signs Vital signs: Vital Signs Temp 98.7 F 09/10/17 07:00 Pulse 152 H 09/10/17 07:00 Resp 16 09/10/17 07:00 BP 141/86 09/10/17 07:00 Pulse Ox 99 09/10/17 07:00 Intake & Output 09/09/17 09/10/17 09/10/17 18:59 06:59 18:59 Intake Total 900 590 Output Total 2800 1350 Balance -1900 590 -1350 Intake: IV 600 Sodium Chloride 0.9% 1, 600 000 ml @ 75 mls/hr IV . [id number] [facility] Rx#:[id number] Oral 300 590 Output: Urine 2800 1350 Uretheral (Hylton) 1350 Other: Voiding Method Indwelling Catheter Indwelling Catheter # Voids 1 - Exam GENERAL EXAM: Alert, confused, 82-year-old, comfortable in no apparent distress. HEAD: Normocephalic/atraumatic. EYES: Normal reaction of pupils, equal size. Conjunctiva pink, sclera white. NOSE: Clear with pink turbinates. THROAT: No erythema or exudates. NECK: No masses, no JVD, no thyroid enlargement, no adenopathy. CHEST: No chest wall deformity. Symmetrical expansion. LUNGS: Equal air entry with no crackles, wheeze, rhonchi or dullness. CVS: Regular rate and rhythm, normal S1 and S2, no murmurs, no rubs ABDOMEN: Soft, nontender. No hepatosplenomegaly, normal bowel sounds, no guarding or rigidity. EXTREMITIES: No clubbing, no edema, no cyanosis, 2+ pulses and upper and lower extremities. MUSCULOSKELETAL: Muscle strength and tone normal. SPINE: No scoliosis or deformity SKIN: No rashes CENTRAL NERVOUS SYSTEM: Alert and oriented -1. No focal deficits, tone is normal in all 4 extremities. PSYCHIATRIC: Alert and oriented -1. Patient is confused, agitated at times - Labs CBC & Chem 7: 09/10/17 06:58 09/10/17 06:58 Labs: Abnormal Lab Results - Last 24 Hours (Table) 09/08/17 09/09/17 09/09/17 Range/Units 06:47 06:27 12:09 WBC (3.8-10.6) k/uL RBC (3.80-5.40) m/uL Hgb (11.4-16.0) gm/dL Hct (34.0-46.0) % Neutrophils # (1.3-7.7) k/uL Carbon Dioxide (22-30) mmol/L BUN 83 H* (7-17) mg/dL Creatinine (0.52-1.04) mg/dL Glucose (74-99) mg/dL POC Glucose (mg/dL) 197 H (75-99) mg/dL Hemoglobin A1c 6.2 H (4.0-6.0) % Calcium (8.4-10.2) mg/dL Phosphorus 8.6 H* (2.5-4.5) mg/dL 09/09/17 09/09/17 09/10/17 Range/Units 16:49 20:36 06:58 WBC 11.4 H (3.8-10.6) k/uL RBC 3.25 L (3.80-5.40) m/uL Hgb 8.7 L (11.4-16.0) gm/dL Hct 27.8 L (34.0-46.0) % Neutrophils # 8.1 H (1.3-7.7) k/uL Carbon Dioxide (22-30) mmol/L BUN (7-17) mg/dL Creatinine (0.52-1.04) mg/dL Glucose (74-99) mg/dL POC Glucose (mg/dL) 216 H 157 H (75-99) mg/dL Hemoglobin A1c (4.0-6.0) % Calcium (8.4-10.2) mg/dL Phosphorus (2.5-4.5) mg/dL 09/10/17 09/10/17 Range/Units 06:58 07:36 WBC (3.8-10.6) k/uL RBC (3.80-5.40) m/uL Hgb (11.4-16.0) gm/dL Hct (34.0-46.0) % Neutrophils # (1.3-7.7) k/uL Carbon Dioxide 32 H (22-30) mmol/L BUN 39 H (7-17) mg/dL Creatinine 1.89 H (0.52-1.04) mg/dL Glucose 148 H (74-99) mg/dL POC Glucose (mg/dL) 137 H (75-99) mg/dL Hemoglobin A1c (4.0-6.0) % Calcium 7.6 L (8.4-10.2) mg/dL Phosphorus (2.5-4.5) mg/dL Microbiology - Last 24 Hours (Table) 09/06/17 22:14 Urine Culture - Final Urine,Catheterized Escherichia coli Assessment and Plan Plan: Assessment: #1 Sepsis secondary to ESBL producing E. coli urinary tract infection.. Currently the patient is on IV meropenem.. #2 Previous history of urinary tract infection secondary to Klebsiella pneumoniae and E. coli. #3 Acute renal failure secondary to UTI and dehydration. The patient is improving with fluid resuscitation and the creatinine is on the declining trend. There is a further improvement in the creatinine, today's creatinine is 1.89 #4 Acute hyperkalemia ,recovered #5 Lactic acidosis secondary to above, initial lactic acid 6.0 improved currently 0.8. #6 altered mental status, metabolic encephalopathy secondary to sepsis and acute kidney injury. Neurologic exam is nonfocal and the patient is moving all 4 extremities without any major limitation. CT of the head that was done in time of admission was within normal limits. #7 Morbid obesity. #8 Diabetes mellitus, type II. #9 History of chronic obstructive pulmonary disease secondary to a remote history of chronic tobacco dependence. Currently on albuterol on a as-needed basis in the outpatient setting. #10 Hyperlipidemia. #11 Osteoarthritis. #12 History of hypertension. #13 Chronic back pain with previous laminectomy and decompression involving the lumbosacral spine. #14 Chronic neck pain. #15 Cardiac murmur with previous echocardiogram revealing preserved left ventricular systolic function. Plan Continue IV meropenem, continue IV hydration with 0.9 normal saline at 75 ML per hour. She was given 10 mg of IV Lopressor for rate control this morning. She remains confused, agitated at times. Her is present at the bedside. CT brain at the time of admission was within normal limits. Patient is not having any focal neurological deficits. Monitor fever pattern, monitor renal profile. She is awaiting to be transferred to have been on selective care unit. Continue to follow I performed a history & physical examination of the patient and discussed their management with my nurse practitioner, Krystle Warner. I reviewed the nurse practitioner's note and agree with the documented findings and plan of care. Lung sounds are clear. The findings and the impression was discussed with the patient. I attest to the documentation by the nurse practitioner. Time with Patient: Less than 30
[2017-09-10] MEDS: glipiZIDE 10 MG TAB PO SCH ×2 (09:51→16:55)
[2017-09-10] MEDS: ASPIRIN 81 MG PO SCH (10:11)
[2017-09-10] MEDS: PANTOPRAZOLE 40 MG TABLET PO SCH (10:11)
[2017-09-10] MEDS: EZETIMIBE 10 MG TAB PO SCH (10:12)
[2017-09-10] MEDS: LINAGLIPTIN 5 MG TABLET PO SCH (10:12)
[2017-09-10] MEDS: HALOPERIDOL LACTATE 5 MG/ML 1 ML VIAL IM PRN (10:15)
[2017-09-10 12:09] LABS: Glucose,Whole Blood 120 mg/dL (75-99)
--- NOTE | 2017-09-10 13:53 | P.PN ---
Subjective Progress Note Date: 09/10/17 82-year-old female who presented to the emergency room with a chief complaint of worsening weakness. Patient's health has been on the decline over the last 3 weeks per the who states she was evaluated at her PCP office 3 weeks ago and has since become progressively more ill and weak. She has not been eating. Denies pain or discomfort. Denies chest pain or pressure. Denies shortness of breath. The patient has a history of coronary artery disease, COPD, diabetes mellitus, gastroesophageal reflux disease, hyperlipidemia, hypertension, myocardial infarction, anxiety, depression,and osteoarthritis. The patient was recently admitted in June 2017 to [facility] with NSTEMI, right lower lobe pneumonia, and exacerbation of COPD. During that hospitalization, cardiology recommended cardiac catheterization and patient declined. Chest x-ray: rotating exam. Cardiomegaly. Correlate for possible pulmonary artery hypertension. Difficult to exclude basilar airspace disease, edema, atelectasis or effusion. CT of the brain: negative for an acute process. ultrasound abdomen and bladder: negative for ascites. Incidental finding of small right pleural effusion. Correlate for hepatocellular disease, hepatic steatosis. gallbladder may be contracted. Spleen is not visualized. Laboratory data: WBC 17.0. Hemoglobin 10.5. Platelet count 394. sodium 133. Potassium 7.7. BUN 84. Creatinine 6.90. Glucose 54. D-dimer: 6.56 lactic acid: 3.8 on admission Urinalysis reveals: turbid yellow urine, 2+ proteinuria, moderate blood, large leukocyte esterase, RBC 9, WBC greater than 182, many WBC clumps, many bacteria , 25 hyaline cast, rare mucus. The patient was admitted to the hospital under the care of Dr. Montoya. Consultations were placed to nephrology, cardiology, and pulmonary for ICU management. 09/08/2017-Note per Dr. Hartman 09/09/2017-Note per Dr. Hartman 09/10/2017 Patient seen and examined at the bedside with Dr. Hartman. Patient was transferred to selective care unit for tachycardia. Apparently, this morning patient was agitated and refusing to take her medications. Dr. Hartman was notified and ordered 10mg lopressor IV x 1 dose. Patients is at the bedside and states she has been refusing all medications unless he is at the bedside and can convince her to take them. Patients hemoglobin is 8.7, likely due to hemodilution. BUN 39. Creatinine 1.89. Urine culture is positive for resistant e. coli. Patient remains on meropenem q [address] Meek is on consult. Objective - Vital Signs Vital signs: Vital Signs Temp 98.0 F 09/10/17 11:48 Pulse 140 H 09/10/17 11:48 Resp 18 09/10/17 11:48 BP 135/79 09/10/17 11:48 Pulse Ox 96 09/10/17 11:48 Intake & Output 09/09/17 09/10/17 09/10/17 18:59 06:59 18:59 Intake Total 900 590 0 Output Total 2800 1350 Balance -1900 590 -1350 Weight 123.5 kg Intake: IV 600 Sodium Chloride 0.9% 1, 600 000 ml @ 75 mls/hr IV . [id number] [facility] Rx#:[id number] Oral 300 590 0 Output: Urine 2800 1350 Uretheral (Hylton) 1350 Other: Voiding Method Indwelling Catheter Indwelling Catheter Indwelling Catheter # Voids 1 - Exam GENERAL: This is a 82-year-old female in no apparent distress at the time of examination. Remains very confused. HEENT: Head is atraumatic, normocephalic. Pupils are equal, round, and reactive to light. Sclerae anicteric. Conjunctivae are clear. Mucus membranes of the mouth are moist. Neck is supple. RESPIRATORY: Clear to ausculation. No wheezes, rales, or rhonchi. No use of accessory muscles. Patient maintaining oxygen saturation greater than 92%. No chest wall tenderness is noted on palpation or with deep breathing. CARDIOVASCULAR: Regular rate and rhythm. S1 and S2 noted. No JVD noted. No S3 or S4 noted. GASTROINTESTINAL: No distention noted. Abdomen soft and round. Normal active bowel sounds auscultated x 4 quadrants. No pain or tenderness noted upon palpation. INTEGUMENTARY: No cyanosis. No jaundice. No rashes noted. No cellulitis noted. EXTREMITIES: 2+ peripheral pulses. trace bilateral lower extremity edema. No calf tenderness noted. NEUROLOGIC: Cranial nerves II-XII intact. PSYCHIATRIC: alert and oriented x 1 only. Remains very confused. - Labs CBC & Chem 7: 09/10/17 06:58 09/10/17 06:58 Labs: Abnormal Lab Results - Last 24 Hours (Table) 09/08/17 09/09/17 09/09/17 Range/Units 06:47 06:27 16:49 WBC (3.8-10.6) k/uL RBC (3.80-5.40) m/uL Hgb (11.4-16.0) gm/dL Hct (34.0-46.0) % Neutrophils # (1.3-7.7) k/uL Carbon Dioxide (22-30) mmol/L BUN 83 H* (7-17) mg/dL Creatinine (0.52-1.04) mg/dL Glucose (74-99) mg/dL POC Glucose (mg/dL) 216 H (75-99) mg/dL Hemoglobin A1c 6.2 H (4.0-6.0) % Calcium (8.4-10.2) mg/dL Phosphorus 8.6 H* (2.5-4.5) mg/dL 09/09/17 09/10/17 09/10/17 Range/Units 20:36 06:58 06:58 WBC 11.4 H (3.8-10.6) k/uL RBC 3.25 L (3.80-5.40) m/uL Hgb 8.7 L (11.4-16.0) gm/dL Hct 27.8 L (34.0-46.0) % Neutrophils # 8.1 H (1.3-7.7) k/uL Carbon Dioxide 32 H (22-30) mmol/L BUN 39 H (7-17) mg/dL Creatinine 1.89 H (0.52-1.04) mg/dL Glucose 148 H (74-99) mg/dL POC Glucose (mg/dL) 157 H (75-99) mg/dL Hemoglobin A1c (4.0-6.0) % Calcium 7.6 L (8.4-10.2) mg/dL Phosphorus (2.5-4.5) mg/dL 09/10/17 09/10/17 Range/Units 07:36 11:56 WBC (3.8-10.6) k/uL RBC (3.80-5.40) m/uL Hgb (11.4-16.0) gm/dL Hct (34.0-46.0) % Neutrophils # (1.3-7.7) k/uL Carbon Dioxide (22-30) mmol/L BUN (7-17) mg/dL Creatinine (0.52-1.04) mg/dL Glucose (74-99) mg/dL POC Glucose (mg/dL) 137 H 120 H (75-99) mg/dL Hemoglobin A1c (4.0-6.0) % Calcium (8.4-10.2) mg/dL Phosphorus (2.5-4.5) mg/dL Assessment and Plan Plan: ASSESSMENT: Sepsis, present on admission, secondary to urinary tract infection Urinary tract infection, present on admission, cultures reveal ESBL e. coli Acute renal failure, creatinine 6.9 on admission, baseline creatinine 0.8-1.0, suspect secondary to UTI and dehydration, improving Severe hyperkalemia, potassium 7.7 on admission, secondary to acute renal failure, resolved Septic and metabolic encephalopathy, secondary to UTI and ARF Elevated d-dimer, VQ scan shows low probability for PE Elevated lactic acid, peaked at 6.0, improved to 1.2 with aggressive fluid resuscitation Recent hospitalization in June 2017 for NSTEMI, right lower lobe pneumonia, and exacerbation of COPD, cardiology recommended catheterization at that time and patient declined Diabetes mellitus, type II, hemoglobin A1c pending History of coronary artery disease Chronic obstructive pulmonary disease Essential hypertension Hyperlipidemia Anxiety, unspecified Depression, unspecified Morbid obesity: BMI 44.3 PLAN: Dr. Meek on consult. Continue meropenem Pulmonary on consult. Appreciate recommendations and input Cardiology was consulted but has signed off. Will reconsult secondary to tachycardia Continue lopressor 50mg BID if patient will take PO medications Will add lopressor 5mg IV PRN q 6 hours for tachycardia if patient refuses PO medications Await results of echocardiogram Nephrology on consult. Appreciate recommendations and input Monitor renal function Continue indwelling urinary catheter. Accurate I&O. Home meds as appropriate Monitor labs Consult PT/OT GI prophylaxis: Protonix 40 mg PO Daily DVT prophylaxis: Heparin 5000 units subcu every 8 hours Monitor vital signs and address as appropriate Discharge planning: Patient will likely require ECF at the time of discharge Further recommendations pending patient's course Nurse practitioner note has been reviewed by physician. Signing provider agrees with the documented findings, assessment, and plan of care.
[2017-09-10] MEDS: METOPROLOL TARTRATE 5 MG/5 ML VIAL IVP PRN (14:55)
[2017-09-10 17:11] LABS: Glucose,Whole Blood 132 mg/dL (75-99)
[2017-09-10 21:07] LABS: Glucose,Whole Blood 128 mg/dL (75-99)
--- NOTE | 2017-09-10 21:54 | PN ---
PROGRESS NOTE Patient is seen for followup for acute kidney injury. Her renal function has improved significantly. Serum creatinine is down to 1.89 from 6.9 mg/dL on initial admission. Currently patient is confused. Her blood pressure has been running high with systolic about 206 and 197 mmHg. Heart rate is 99 per minute. She is afebrile. Patient is lying in bed. She is comfortable. She denies any significant shortness of breath. There is no significant edema noted. Patient refuses to be examined. Review of labs shows sodium 141, potassium 3.5, BUN 39, serum creatinine 1.89, hemoglobin 8.7 g/dL. ASSESSMENT: 1. Acute kidney injury, acute tubular necrosis, currently improved significantly and patient is nonoliguric. She has an indwelling Hylton catheter. She is maintained on IV fluids, but it appears that she has not been getting any. Patient has had an indwelling Hylton catheter. No nephrotoxic agents on board. 2. Hyperkalemia on initial admission, currently resolved. 3. Type 2 diabetes, maintained on oral hypoglycemic agents. 4. Urinary tract infection with Escherichia coli, maintained on meropenem. 5. Hypertension. Blood pressure is currently elevated. Patient is maintained on Lopressor. If her blood pressure remains elevated, we can add calcium channel blockers as well. 6. Altered mentation, possibly related medications are reviewed. Patient has not been receiving the Elavil. She may need imaging of the head if the mentation does not improve or worsens. 7. Recent hospitalization in June for [id number] myocardial infarction, right lower lobe pneumonia and exacerbation of chronic obstructive pulmonary disease. PLAN: Encourage increased oral intake and repeat labs in a.m. Possibly discontinue Hylton catheter tomorrow. MMODL / IJN: [id number] /
--- NOTE | 2017-09-10 22:42 | P.CONS ---
History of Present Illness - Reason for Consult Consult date: 09/10/17 - Chief Complaint altered mental status - History of Present Illness 82-year-old female presents to Hospital from home with a several-day history of feeling poorly. She developed fever with chills and increasing fatigue and malaise. She was not eating well and not drinking well. She normally is awake alert sharp pleasant and interactive by her personality, the family related that she became dull confused and combative and constantly she was brought to Hospital for evaluation. At admission there was evidence of acute renal failure, hyperkalemia and evidence of sepsis with evidence of leukocytosis and a urinary tract infection. The patient was resuscitated and admitted to hospital. There is evaluated d-dimer and constantly VQ scan was performed which was low probability for pulmonary embolus. Patient underwent ultrasound of the abdomen which failed to reveal evidence of any obstruction to the urinary system. The patient did have a change of her status and required transfer up-to-date Selective care unit because of tachycardia. This is now improved the patient remains difficult to interview. Her granddaughter and are present. The relate that her mental status is completely different than her baseline. She normally runs a household pays all of the bills does the shopping and likes to cook. This is markedly different from her current status where she has been refusing to take medications does not seem to trust any of the medical staff, only seems to have trust for her and granddaughter. With evidence of the ESBL E. coli urinary tract infection the infectious diseases consultation was requested. With the patient's resuscitation admission her acute renal failure has improved her crit has gone from 6.9 down to 1.89. Her hypokalemia is also resolved. She however has been having fevers 101 in the last day. Antibacterial therapy was altered from Rocephin to meropenem for the ESBL infection. Review of Systems ROS unobtainable: due to mental status Past Medical History Past Medical History: Coronary Artery Disease (CAD), Chest Pain / Angina, COPD, Diabetes Mellitus, GERD/Reflux, Hyperlipidemia, Hypertension, Myocardial Infarction (NM), Osteoarthritis (OA) Additional Past Medical History / Comment(s): 06/18/1712/18/17 Admitted to [facility] with NSTEMI, R lower lobe pneumonia and exacerbation of her COPD. Pt refused heart catheterization. Other hx; NIDDM type II, bilateral peripheral neuropathy in feet, hiatal hernia, arthritis multiple joints, chronic low back pain, lower leg edema, cataracts bilaterally. Last Myocardial Infarction Date:: 06/17/18 History of Any Multi-Drug Resistant Organisms: ESBL Year Discovered:: 09/06/17 MDRO Source:: ESBL URINE Past Surgical History: Back Surgery, Joint Replacement, Orthopedic Surgery Additional Past Surgical History / Comment(s): 07/29/15 lumbar laminectomy decompression fusion L3-4 and L5-S1 with cell saver, lumbar instrumentation removal L4-5, L4-L5 laminectomy, ZULY KNEE REPLACEMENTS,ORIF RT ANKLE, CERVICAL FUSION, zuly rotator cuff repair, surgery to zuly wrist carpal tunnel releases, pain procedures, L breast lumpectomy-benign, bilateral legs varicose vein stripping. Past Anesthesia/Blood Transfusion Reactions: No Reported Reaction Additional Past Anesthesia/Blood Transfusion Reaction / Comm: Pt states she has never received blood. Additional Psychological History / Comment(s): Is and lives in the family home. 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 Known experience. No international travel. No animal exposures. Stopped smoking 30 years ago no history of alcohol use Smoking Status: Former smoker - Past Family History Father Brother(s) Family Medical History: Cancer Mother Sister(s) Family Medical History: Cancer Father Family Medical History: Myocardial Infarction (NM) Additional Family Medical History / Comment(s): Father at 40 of a NM. Mother Family Medical History: CVA/TIA Additional Family Medical History / Comment(s): Mother had a CVA Medications and Allergies Home Medications and Allergies Comment(s): Current Medications Acetaminophen (Tylenol Tab) 650 mg PO Q4HR PRN PRN Reason: Fever and/or Mild Pain Last Admin: 09/10/17 00:45 Dose: 650 mg Hydrocodone Bitart/Acetaminophen (Bruno 5-325) 1 each PO Q6HR PRN PRN Reason: Pain 5-7 Last Admin: 09/08/17 18:12 Dose: 1 each Albuterol Sulfate (Ventolin Nebulized) 2.5 mg INHALATION RT-Q4H PRN PRN Reason: Shortness Of Breath Last Admin: 09/09/17 12:41 Dose: 2.5 mg Albuterol Sulfate (Ventolin Nebulized) 2.5 mg INHALATION RT-QID LEIGH ANN Last Admin: 09/10/17 18:58 Dose: Not Given Amitriptyline HCl (Elavil) 50 mg PO HS COUNT INCLUDES THE [facility] Last Admin: 09/10/17 20:40 Dose: 50 mg Aspirin (Aspirin) 81 mg PO DAILY COUNT INCLUDES THE [facility] Last Admin: 09/10/17 10:11 Dose: Not Given Atorvastatin Calcium (Lipitor) 40 mg PO HS COUNT INCLUDES THE [facility] Last Admin: 09/10/17 20:40 Dose: 40 mg Ezetimibe (Zetia) 10 mg PO DAILY COUNT INCLUDES THE [facility] Last Admin: 09/10/17 10:12 Dose: Not Given Glipizide (Glucotrol) 20 mg PO AC-BID COUNT INCLUDES THE [facility] Last Admin: 09/10/17 16:55 Dose: Not Given Haloperidol Lactate (Haldol) 2 mg IM Q4HR PRN PRN Reason: Agitation or Acute Psychosis Last Admin: 09/10/17 10:15 Dose: 2 mg Heparin Sodium (Porcine) (Heparin) 5,000 unit SQ Q8HR COUNT INCLUDES THE [facility] Last Admin: 09/10/17 14:55 Dose: Not Given Sodium Chloride (Saline 0.9%) 1,000 mls @ 75 mls/hr IV .[id number] COUNT INCLUDES THE [facility] Last Admin: 09/10/17 20:00 Dose: Not Given Meropenem 500 mg/ Sodium (Chloride) 50 mls @ 100 mls/hr IVPB Q12HR COUNT INCLUDES THE [facility] Last Admin: 09/10/17 20:38 Dose: 100 mls/hr Insulin Aspart (Novolog) 0 unit SQ ACHS COUNT INCLUDES THE [facility] PRN Reason: Protocol Last Admin: 09/10/17 20:40 Dose: Not Given Linagliptin (Tradjenta) 5 mg PO DAILY COUNT INCLUDES THE [facility] Last Admin: 09/10/17 10:12 Dose: Not Given Metoprolol Tartrate (Lopressor) 50 mg PO BID COUNT INCLUDES THE [facility] Last Admin: 09/10/17 20:40 Dose: 50 mg Metoprolol Tartrate (Lopressor) 5 mg IVP Q6HR PRN PRN Reason: tachycardia Last Admin: 09/10/17 14:55 Dose: 5 mg Morphine Sulfate (Morphine Sulfate (Inj)) 4 mg IV Q2HR PRN PRN Reason: Pain Scale 8 to 10 Naloxone HCl (Narcan) 0.2 mg IV Q2M PRN PRN Reason: Opioid Reversal Nitroglycerin (Nitrostat) 0.4 mg SUBLINGUAL Q5M PRN PRN Reason: Chest Pain Pantoprazole Sodium (Protonix) 40 mg PO AC-BRKFST COUNT INCLUDES THE [facility] Last Admin: 09/10/17 10:11 Dose: Not Given Home Medications Medication Instructions Recorded Confirmed Type Ezetimibe [Zetia] 10 mg PO DAILY 11/14/13 09/06/17 History Furosemide [Lasix] 40 mg PO DAILY 11/14/13 09/06/17 History glipiZIDE [Glucotrol] 20 mg PO BID 11/14/13 09/06/17 History Nitroglycerin Sl Tabs [Nitrostat] 0.4 mg SUBLINGUAL Q5M PRN 07/20/15 09/06/17 History Atorvastatin Calcium [Lipitor] 40 mg PO HS #1 tab 08/04/15 09/06/17 Rx HYDROcodone/APAP 5-325MG [Bruno 1 tab PO Q6HR PRN 06/13/16 09/06/17 History 5-325] Amitriptyline HCl [Elavil] 50 mg PO HS 02/04/17 09/06/17 History Metoprolol Tartrate [Lopressor] 50 mg PO BID #60 tab 02/09/17 09/06/17 Rx Verapamil [Isoptin] 40 mg PO BID #60 tab 02/09/17 09/06/17 Rx Gabapentin 400 mg PO DAILY 06/18/17 09/06/17 History Gabapentin 800 mg PO HS 06/18/17 09/06/17 History Albuterol Inhaler [Ventolin Hfa 2 puff INHALATION RT-Q4H PRN 09/06/17 09/06/17 History Inhaler] Aspirin [Adult Low Dose Aspirin EC] 81 mg PO DAILY 09/06/17 09/06/17 History Linagliptin [Tradjenta] 5 mg PO DAILY 09/06/17 09/06/17 History Allergies Allergy/AdvReac Type Severity Reaction Status Date / Time Penicillins Allergy Rash/Hives Verified 09/06/17 19:21 Physical Exam Vitals: Vital Signs Temp Pulse Pulse Resp BP Pulse Ox 09/10/17 20:00 98.6 F 99 18 185/84 97 09/10/17 16:18 94 169/72 09/10/17 15:20 99 16 09/10/17 15:15 197/87 03/12/18 15:10 94 16 09/10/17 14:50 98.0 F 98 18 206/80 95 09/10/17 11:48 98.0 F 140 H 18 135/79 96 09/10/17 08:45 159 H 159/90 09/10/17 07:00 98.7 F 152 H 16 141/86 99 09/10/17 02:13 98.9 F 09/10/17 02:04 101.0 F H 91 16 144/55 96 Intake and Output 09/10/17 09/10/17 09/10/17 06:59 14:59 22:59 Intake Total 600 Output Total 1350 Balance -750 Intake: IV 600 Sodium Chloride 0.9% 1, 600 000 ml @ 75 mls/hr IV . [id number] LEIGH ANN Rx#:[id number] Oral 0 Output: Urine 1350 Uretheral ([place]) 1350 Other: Voiding Method Indwelling Catheter Indwelling Catheter Indwelling Catheter # Voids 1 0 Weight 123.5 kg Patient Weight 09/11/17 06:59 Weight 123.5 kg HEENT: Anicteric conjunctiva are pink and moist nasal mucosa grossly intact without significant lesions, there is no thrush. Neck: The neck is supple without significant lymphadenopathy or thyromegaly. Lungs: Good bilateral air entry without significant crackles or wheezing. There is no significant bronchial sounds. There is no egophony or dullness. Heart: Tachycardic and regular audible S1 and S2 soft S4. Murmur click or rub Abdomen: Obese, Positive bowel sounds soft and nontender without palpable masses or organomegaly. There was no guarding or rebound. Extremities: The upper extremities have excellent pulses they are symmetric, no significant petechiae or telangiectasia. No splinter hemorrhages were noted. The lower extremities are free from significant edema. The peripheral pulses were 2+ and symmetric. Neuro: The patient is awake alert oriented to person and place as [place]. She however is scowling at the observer as well as her family members were present. The family relates this is very atypical behavior and that she routinely is pleasant and cooperative and highly functional. Results CBC & Chem 7: 09/10/17 06:58 09/10/17 06:58 Labs: Abnormal Lab Results - Last 24 Hours (Table) 09/09/17 09/10/17 09/10/17 Range/Units 06:27 06:58 06:58 WBC 11.4 H (3.8-10.6) k/uL RBC 3.25 L (3.80-5.40) m/uL Hgb 8.7 L (11.4-16.0) gm/dL Hct 27.8 L (34.0-46.0) % Neutrophils # 8.1 H (1.3-7.7) k/uL Carbon Dioxide 32 H (22-30) mmol/L BUN 39 H (7-17) mg/dL Creatinine 1.89 H (0.52-1.04) mg/dL Glucose 148 H (74-99) mg/dL POC Glucose (mg/dL) (75-99) mg/dL Hemoglobin A1c 6.2 H (4.0-6.0) % Calcium 7.6 L (8.4-10.2) mg/dL 09/10/17 09/10/17 09/10/17 Range/Units 07:36 11:56 16:46 WBC (3.8-10.6) k/uL RBC (3.80-5.40) m/uL Hgb (11.4-16.0) gm/dL Hct (34.0-46.0) % Neutrophils # (1.3-7.7) k/uL Carbon Dioxide (22-30) mmol/L BUN (7-17) mg/dL Creatinine (0.52-1.04) mg/dL Glucose (74-99) mg/dL POC Glucose (mg/dL) 137 H 120 H 132 H (75-99) mg/dL Hemoglobin A1c (4.0-6.0) % Calcium (8.4-10.2) mg/dL 09/10/17 Range/Units 20:39 WBC (3.8-10.6) k/uL RBC (3.80-5.40) m/uL Hgb (11.4-16.0) gm/dL Hct (34.0-46.0) % Neutrophils # (1.3-7.7) k/uL Carbon Dioxide (22-30) mmol/L BUN (7-17) mg/dL Creatinine (0.52-1.04) mg/dL Glucose (74-99) mg/dL POC Glucose (mg/dL) 128 H (75-99) mg/dL Hemoglobin A1c (4.0-6.0) % Calcium (8.4-10.2) mg/dL Laboratory Results WBC 11.4 k/uL (3.8-10.6) H 09/10/17 06:58 RBC 3.25 m/uL (3.80-5.40) L 09/10/17 06:58 Hgb 8.7 gm/dL (11.4-16.0) L 09/10/17 06:58 Hct 27.8 % (34.0-46.0) L 09/10/17 06:58 MCV 85.7 fL (80.0-100.0) 09/10/17 06:58 MCH 26.9 pg (25.0-35.0) 09/10/17 06:58 MCHC 31.4 g/dL (31.0-37.0) 09/10/17 06:58 RDW 14.0 % (11.5-15.5) 09/10/17 06:58 Plt Count 395 k/uL (150-450) 09/10/17 06:58 Neutrophils % 71 % 09/10/17 06:58 Lymphocytes % 19 % 09/10/17 06:58 Monocytes % 5 % 09/10/17 06:58 Eosinophils % 3 % 09/10/17 06:58 Basophils % 0 % 09/10/17 06:58 Neutrophils # 8.1 k/uL (1.3-7.7) H 09/10/17 06:58 Lymphocytes # 2.1 k/uL (1.0-4.8) 09/10/17 06:58 Monocytes # 0.6 k/uL (0-1.0) 09/10/17 06:58 Eosinophils # 0.3 k/uL (0-0.7) 09/10/17 06:58 Basophils # 0.0 k/uL (0-0.2) 09/10/17 06:58 Hypochromasia Slight 09/10/17 06:58 PT 10.1 sec (9.0-12.0) 09/06/17 20:16 INR 1.0 (<1.2) 09/06/17 20:16 APTT 26.1 sec (22.0-30.0) 09/06/17 20:16 D-Dimer 6.56 mg/L FEU (<0.60) H 09/06/17 20:16 Sodium 141 mmol/L (137-145) 09/10/17 06:58 Potassium 3.5 mmol/L (3.5-5.1) 09/10/17 06:58 Chloride 98 mmol/L (98-107) 09/10/17 06:58 Carbon Dioxide 32 mmol/L (22-30) H 09/10/17 06:58 Anion Gap 11 mmol/L 09/10/17 06:58 BUN 39 mg/dL (7-17) H 09/10/17 06:58 Creatinine 1.89 mg/dL (0.52-1.04) H 09/10/17 06:58 Est GFR (CKD-EPI)AfAm 28 (>60 ml/min/1.73 sqM) 09/10/17 06:58 Est GFR (CKD-EPI)NonAf 25 (>60 ml/min/1.73 sqM) 09/10/17 06:58 Glucose 148 mg/dL (74-99) H 09/10/17 06:58 POC Glucose (mg/dL) 128 mg/dL (75-99) H 09/10/17 20:39 POC Glu Relief Charge Nurse ID Toya Garcia 09/10/17 20:[address] Glu mg/dL 131 09/09/17 06:27 Hemoglobin A1c 6.2 % (4.0-6.0) H 09/09/17 06:27 Lactic Ac Sepsis Rflx Y 09/06/17 20:56 Plasma Lactic Acid Russel 0.8 mmol/L (0.7-2.0) 09/10/17 08:28 Calcium 7.6 mg/dL (8.4-10.2) L 09/10/17 06:58 Phosphorus 4.5 mg/dL (2.5-4.5) 09/10/17 06:58 Magnesium 1.9 mg/dL (1.6-2.3) 09/10/17 06:58 Total Bilirubin 0.1 mg/dL (0.2-1.3) L 09/07/17 05:57 AST 57 U/L (14-36) H 09/07/17 05:57 ALT 38 U/L (9-52) 09/07/17 05:57 Alkaline Phosphatase 87 U/L (38-126) 09/07/17 05:57 Total Creatine Kinase 1264 U/L (30-135) H 09/06/17 20:16 CK-MB (CK-2) 6.8 ng/mL (0.0-2.4) H* 09/06/17 20:16 CK-MB (CK-2) Rel Index 0.5 09/06/17 20:16 Troponin I <0.012 ng/mL (0.000-0.034) 09/06/17 20:16 Total Protein 5.1 g/dL (6.3-8.2) L 09/07/17 05:57 Albumin 2.6 g/dL (3.5-5.0) L 09/07/17 05:57 TSH 1.080 mIU/L (0.465-4.680) 09/10/17 06:58 Urine Color Yellow 09/06/17 22:14 Urine Appearance Turbid (Clear) H 09/06/17 22:14 Urine pH 6.5 (5.0-8.0) 09/06/17 22:14 Ur Specific [place] 1.012 (1.001-1.035) 09/06/17 22:14 Urine Protein 2+ (Negative) H 09/06/17 22:14 Urine Glucose (UA) Negative (Negative) 09/06/17 22:14 Urine Ketones Negative (Negative) 09/06/17 22:14 Urine Blood Moderate (Negative) H 09/06/17 22:14 Urine Nitrite Negative (Negative) 09/06/17 22:14 Urine Bilirubin Negative (Negative) 09/06/17 22:14 Urine Urobilinogen <2.0 mg/dL (<2.0) 09/06/17 22:14 Ur Leukocyte Esterase Large (Negative) H 09/06/17 22:14 Urine RBC 9 /hpf (0-5) H 09/06/17 22:14 Urine WBC >182 /hpf (0-5) H 09/06/17 22:14 Urine WBC Clumps Many /hpf (None) H 09/06/17 22:14 Ur Squamous Epith Cells 1 /hpf (0-4) 09/06/17 22:14 Urine Bacteria Many /hpf (None) H 09/06/17 22:14 Hyaline Casts 25 /lpf (0-2) H 09/06/17 22:14 Urine Mucus Rare /hpf (None) H 09/06/17 22:14 Microbiology 09/06/17 22:14 Urine,Catheterized Urine Culture - Final Escherichia coli Assessment and Plan (1) Severe sepsis with acute organ dysfunction due to Gram negative bacteria Current Visit: Yes Status: Acute Code(s): A41.50 - GRAM-NEGATIVE SEPSIS, UNSPECIFIED; R65.20 - SEVERE SEPSIS WITHOUT SEPTIC SHOCK SNOMED Code(s): 925611308071887 (2) Infection due to ESBL-producing Escherichia coli Narrative/Plan: 82-year-old female presents to Hospital with her family with altered mental status not functioning well for several days before coming to Hospital having fever and chills, granddaughter relates that the patient may have missed some of her medication shortly before she started becoming ill. It is related that it admission the patient had altered mental status which may not be a bit more improved but still is uncooperative and unpleasant. It admission she had acute renal failure that is improved her creatinine is now down to 1.89. Hyperkalemia has resolved. Has been seen by cardiology and they are following as needed. She did have evidence of ongoing fever and urine culture now has evidence of the ESBL E. coli and constantly antibiotic therapy was altered to meropenem because of her severe sepsis with acute organ dysfunction at admission with her renal failure. The discharge plan as far as antibiotics therapy will be made as she has improvement of her status there is a possibility that she will require outpatient intravenous antibiotic therapy. Nephrology is following no evidence of any need for renal replacement therapy at this time. Family is updated with her status, information about ESBL infection is provided. Current Visit: Yes Status: Acute Code(s): A49.8 - OTHER BACTERIAL INFECTIONS OF UNSPECIFIED SITE; Z16.12 - EXTENDED SPECTRUM BETA LACTAMASE (ESBL ) RESISTANCE SNOMED Code(s): 701755342 (3) Acute renal failure Current Visit: Yes Status: Acute Code(s): N17.9 - ACUTE KIDNEY FAILURE, UNSPECIFIED SNOMED Code(s): 91945160 (4) Hyperkalemia Current Visit: Yes Status: Acute Code(s): E87.5 - HYPERKALEMIA SNOMED Code (s): 93943357 (5) Altered mental status Current Visit: Yes Status: Acute Code(s): R41.82 - ALTERED MENTAL STATUS, UNSPECIFIED SNOMED Code(s): 033662279
[2017-09-10] MEDS: HYDROcodone/APAP 5-325MG 1 EACH TAB PO PRN (22:57)
[2017-09-11] MEDS: HALOPERIDOL LACTATE 5 MG/ML 1 ML VIAL IM PRN (00:09)
[2017-09-11] MEDS: MORPHINE SULFATE 4 MG/ML SYRINGE IV PRN ×2 (05:02→11:20)
[2017-09-11 06:19] LABS: Glucose,Whole Blood 146 mg/dL (75-99)
[2017-09-11 06:30] LABS: Basophils % (A) 0 %; Eosinophils # (A) 0.3 k/uL (0-0.7); Eosinophils % (A) 3 %; HCT 29.9 % (34.0-46.0); HGB 9.2 gm/dL (11.4-16.0); Hypochromasia Slight; Lymphocytes # (A) 1.9 k/uL (1.0-4.8); Lymphocytes % (A) 19 %; MCH 26.8 pg (25.0-35.0); MCHC 30.8 g/dL (31.0-37.0); MCV 86.8 fL (80.0-100.0); Monocytes # (A) 0.4 k/uL (0-1.0); Monocytes % (A) 4 %; Neutrophils # (A) 7.4 k/uL (1.3-7.7); Neutrophils % (A) 72 %; Platelet Count 463 k/uL (150-450); RBC 3.44 m/uL (3.80-5.40); WBC 10.4 k/uL (3.8-10.6)
[2017-09-11] MEDS: SODIUM CHLORIDE 0.9% 1,000 ML IV SCH (06:38)
[2017-09-11] MEDS: PANTOPRAZOLE 40 MG TABLET PO SCH (06:40)
[2017-09-11] MEDS: INSULIN ASPART 100 UNIT/ML 1 ML 10 ML VIAL SQ SCH ×4 (06:41→21:53)
[2017-09-11 07:10] LABS: Calcium 8.1 mg/dL (8.4-10.2); Magnesium 1.8 mg/dL (1.6-2.3); Phosphorus 3.3 mg/dL (2.5-4.5); Potassium 3.1 mmol/L (3.5-5.1)
[2017-09-11] MEDS: LINAGLIPTIN 5 MG TABLET PO SCH (07:45)
[2017-09-11] MEDS: glipiZIDE 10 MG TAB PO SCH ×2 (07:45→17:10)
[2017-09-11] MEDS: EZETIMIBE 10 MG TAB PO SCH (07:45)
[2017-09-11] MEDS: HEPARIN SODIUM,PORCINE 5,000 UNIT/ML 1 ML VIAL SQ SCH ×3 (07:45→21:55)
[2017-09-11] MEDS: ASPIRIN 81 MG PO SCH (07:45)
[2017-09-11] MEDS: MEROPENEM 500 MG in SODIUM CHLORIDE 0.9% 50 ML IVPB SCH ×2 (07:46→21:53)
[2017-09-11] MEDS: METOPROLOL TARTRATE 50 MG TAB PO SCH ×2 (07:46→21:55)
[2017-09-11] MEDS: ALBUTEROL NEBULIZED 2.5 MG/3 ML INHALATION SCH ×4 (07:52→21:47)
[2017-09-11] MEDS ORDERED: Potassium Replacement Protocol 1 EACH MISC MISCELLANE PRN (08:32)
--- NOTE | 2017-09-11 10:07 | XR ---
EXAMINATION TYPE: XR ankle complete RT DATE OF EXAM: 09/10/2017 COMPARISON: NONE HISTORY: Pain FINDINGS: Three views of the ankle demonstrate diffuse osteopenia. Numerous punctate densities adjacent the med ial malleolus likely related to previous surgery in metal shavings or foreign body chronic basis. Pos tsurgical changes are noted. There is vascular calcifications and large calcaneal spur. Soft tissue e karen noted. Distortion the ankle mortise secondary to postsurgical change. IMPRESSION: 1. No definite acute fracture or dislocation, if symptoms persist follow-up study in 7 to 10 days wou ld be suggested.
[2017-09-11] MEDS: POTASSIUM CHLORIDE ER 20 MEQ TAB.ER PO SCH ×2 (10:35→11:56)
--- NOTE | 2017-09-11 10:40 | XR ---
EXAMINATION TYPE: XR Hip Bilateral and AP pelvis DATE OF EXAM: 09/10/2017 COMPARISON: NONE HISTORY: Pain TECHNIQUE: A single AP view of the pelvis is obtained. Two views of the bilateral hip are obtained. FINDINGS: There is postsurgical changes involving the lower lumbar spine. Diffuse osteopenia noted. Arthropathy of the hips. Patient is rotated. Grossly the SI joints are symmetric with no erosive changes. Arthropathy of the hip is noted bilaterally. Well-corticated area of density adjacent to the right gr eater trochanter likely chronic injury. No diagnostic evidence of acute fracture. Technique somewhat limited. IMPRESSION: 1. Postsurgical change lumbar spine #2 Limited series due to technique and positioning. No obvious ac alexandra fracture or symptoms persist recommend CT scan given limitation of exam. 2. Bilateral hip arthropathy.
--- NOTE | 2017-09-11 10:43 | XR ---
EXAMINATION TYPE: XR knee complete bilateral DATE OF EXAM: 09/10/2017 COMPARISON: NONE HISTORY: Pain TECHNIQUE: Four views are submitted. FINDINGS: Joint spaces are preserved. Osseous structures are intact. No acute fracture seen. Postsurgical ch anthony involving the knees bilaterally. IMPRESSION: 1. No acute fracture or dislocation. 2. Postoperative change.
[2017-09-11 11:39] LABS: Glucose,Whole Blood 122 mg/dL (75-99)
[2017-09-11] MEDS: amLODIPine 5 MG TAB PO SCH (11:56)
--- NOTE | 2017-09-11 14:02 | P.PN ---
Subjective Progress Note Date: 09/11/17 82-year-old female who presented to the emergency room with a chief complaint of worsening weakness. Patient's health has been on the decline over the last 3 weeks per the who states she was evaluated at her PCP office 3 weeks ago and has since become progressively more ill and weak. She has not been eating. Denies pain or discomfort. Denies chest pain or pressure. Denies shortness of breath. The patient has a history of coronary artery disease, COPD, diabetes mellitus, gastroesophageal reflux disease, hyperlipidemia, hypertension, myocardial infarction, anxiety, depression,and osteoarthritis. The patient was recently admitted in June 2017 to [facility] with NSTEMI, right lower lobe pneumonia, and exacerbation of COPD. During that hospitalization, cardiology recommended cardiac catheterization and patient declined. Chest x-ray: rotating exam. Cardiomegaly. Correlate for possible pulmonary artery hypertension. Difficult to exclude basilar airspace disease, edema, atelectasis or effusion. CT of the brain: negative for an acute process. ultrasound abdomen and bladder: negative for ascites. Incidental finding of small right pleural effusion. Correlate for hepatocellular disease, hepatic steatosis. gallbladder may be contracted. Spleen is not visualized. Laboratory data: WBC 17.0. Hemoglobin 10.5. Platelet count 394. sodium 133. Potassium 7.7. BUN 84. Creatinine 6.90. Glucose 54. D-dimer: 6.56 lactic acid: 3.8 on admission Urinalysis reveals: turbid yellow urine, 2+ proteinuria, moderate blood, large leukocyte esterase, RBC 9, WBC greater than 182, many WBC clumps, many bacteria , 25 hyaline cast, rare mucus. The patient was admitted to the hospital under the care of Dr. Montoya. Consultations were placed to nephrology, cardiology, and pulmonary for ICU management. 09/08/2017-Note per Dr. Hartman 09/09/2017-Note per Dr. Hartman 09/10/2017 Patient seen and examined at the bedside with Dr. Hartman. Patient was transferred to selective care unit for tachycardia. Apparently, this morning patient was agitated and refusing to take her medications. Dr. Hartman was notified and ordered 10mg lopressor IV x 1 dose. Patients is at the bedside and states she has been refusing all medications unless he is at the bedside and can convince her to take them. Patients hemoglobin is 8.7, likely due to hemodilution. BUN 39. Creatinine 1.89. Urine culture is positive for resistant e. coli. Patient remains on meropenem q [address] Meek is on consult. 09/11/2017 Patient seen and examined at the bedside. Patient is sitting up in the bed. Awake and alert. Cooperative during examination. Patient was transferred to selective care unit yesterday for tachycardia in the 150s. She required IV lopressor. Cardiology was consulted but has signed off the case. echocardiogram was completed and results are currently pending. Patient underwent bilateral knee x-rays which were negative for an acute fracture or dislocation. Bilateral hip x-rays revealing postsurgical changes, no obvious acute fracture, bilateral hip arthropathy. Right ankle x-ray which was negative for an acute fracture or dislocation. Patients blood pressure has been on the higher side. She is receiving metoprolol. indwelling urinary catheter remains intact with yellow urine noted. Patient did undergo a CT of the brain during this admission which was negative for an acute process. the patient was evaluated by Dr. Meek and patient may require outpatient IV antibiotic therapy. Patient has been afebrile for last 24 hours. Heart rate remains in the 90s. Potassium this morning is 3.1. BUN 24. Creatinine 1.24. Objective - Vital Signs Vital signs: Vital Signs Temp 97.6 F 09/11/17 08:00 Pulse 94 09/11/17 08:05 Resp 18 09/11/17 08:00 BP 173/79 09/11/17 08:00 Pulse Ox 95 09/11/17 08:00 Intake & Output 09/10/17 09/11/17 09/11/17 18:59 06:59 18:59 Intake Total 600 Output Total 1350 650 Balance -750 -650 Weight 123.5 kg 118.5 kg Intake: IV 600 Sodium Chloride 0.9% 1, 600 000 ml @ 75 mls/hr IV . [id number] [facility] Rx#:[id number] Oral 0 Output: Urine 1350 650 Uretheral ([place]) 1350 Other: Voiding Method Indwelling Catheter Indwelling Catheter Indwelling Catheter # Voids 0 - Exam GENERAL: This is a 82-year-old female in no apparent distress at the time of examination. Mentation has improved. HEENT: Head is atraumatic, normocephalic. Pupils are equal, round, and reactive to light. Sclerae anicteric. Conjunctivae are clear. Mucus membranes of the mouth are moist. Neck is supple. RESPIRATORY: Clear to ausculation. No wheezes, rales, or rhonchi. No use of accessory muscles. Patient maintaining oxygen saturation greater than 92%. No chest wall tenderness is noted on palpation or with deep breathing. CARDIOVASCULAR: Regular rate and rhythm. S1 and S2 noted. No JVD noted. No S3 or S4 noted. GASTROINTESTINAL: No distention noted. Abdomen soft and round. Normal active bowel sounds auscultated x 4 quadrants. No pain or tenderness noted upon palpation. INTEGUMENTARY: No cyanosis. No jaundice. No rashes noted. No cellulitis noted. EXTREMITIES: 2+ peripheral pulses. trace bilateral lower extremity edema. No calf tenderness noted. NEUROLOGIC: Cranial nerves II-XII intact. PSYCHIATRIC: alert and oriented x 2-3. Mentation has improved. Cooperative. - Labs CBC & Chem 7: 09/11/17 05:55 09/11/17 05:55 Labs: Abnormal Lab Results - Last 24 Hours (Table) 09/10/17 09/10/17 09/10/17 Range/Units 11:56 16:46 20:39 RBC (3.80-5.40) m/uL Hgb (11.4-16.0) gm/dL Hct (34.0-46.0) % MCHC (31.0-37.0) g/dL Plt Count (150-450) k/uL Potassium (3.5-5.1) mmol/L BUN (7-17) mg/dL Creatinine (0.52-1.04) mg/dL Glucose (74-99) mg/dL POC Glucose (mg/dL) 120 H 132 H 128 H (75-99) mg/dL Calcium (8.4-10.2) mg/dL 09/11/17 09/11/17 09/11/17 Range/Units 05:55 05:55 05:57 RBC 3.44 L (3.80-5.40) m/uL Hgb 9.2 L (11.4-16.0) gm/dL Hct 29.9 L (34.0-46.0) % MCHC 30.8 L (31.0-37.0) g/dL Plt Count 463 H (150-450) k/uL Potassium 3.1 L (3.5-5.1) mmol/L BUN 24 H (7-17) mg/dL Creatinine 1.24 H (0.52-1.04) mg/dL Glucose 131 H (74-99) mg/dL POC Glucose (mg/dL) 146 H (75-99) mg/dL Calcium 8.1 L (8.4-10.2) mg/dL Assessment and Plan Plan: ASSESSMENT: Sepsis, present on admission, secondary to urinary tract infection Urinary tract infection, present on admission, cultures reveal ESBL e. coli Acute renal failure, creatinine 6.9 on admission, baseline creatinine 0.8-1.0, suspect secondary to UTI and dehydration, improving Severe hyperkalemia, potassium 7.7 on admission, secondary to acute renal failure, resolved Septic and metabolic encephalopathy, secondary to UTI and ARF Elevated d-dimer, VQ scan shows low probability for PE Elevated lactic acid, peaked at 6.0, improved to 1.2 with aggressive fluid resuscitation Recent hospitalization in June 2017 for NSTEMI, right lower lobe pneumonia, and exacerbation of COPD, cardiology recommended catheterization at that time and patient declined Diabetes mellitus, type II, hemoglobin A1c 6.2% History of coronary artery disease Chronic obstructive pulmonary disease Essential hypertension Hyperlipidemia Anxiety, unspecified Depression, unspecified Morbid obesity: BMI 44.3 PLAN: Dr. Meek on consult. Continue meropenem Patient may require outpatient IV antibiotics and PICC line. Await further recommendations from Dr. Meek Pulmonary on consult. Appreciate recommendations and input Cardiology consulted for tachycardia, but have signed off the case. Continue metoprolol Begin Norvasc 5 mg daily for hypertension Await results of echocardiogram Nephrology on consult. Appreciate recommendations and input Continue indwelling urinary catheter Monitor renal function Replace potassium Home meds as appropriate Monitor labs PT/OT GI prophylaxis: Protonix 40 mg PO Daily DVT prophylaxis: Heparin 5000 units subcu every 8 hours Monitor vital signs and address as appropriate Discharge planning: Patient will likely require ECF at the time of discharge. Patient requesting [facility] Further recommendations pending patient's course Nurse practitioner note has been reviewed by physician. Signing provider agrees with the documented findings, assessment, and plan of care.
[2017-09-11] MEDS ORDERED: MORPHINE ORAL SOLN 10 MG/5 ML CUP PO PRN (15:38)
[2017-09-11 17:16] LABS: Glucose,Whole Blood 215 mg/dL (75-99)
[2017-09-11] MEDS: METOPROLOL TARTRATE 5 MG/5 ML VIAL IVP PRN (17:56)
--- NOTE | 2017-09-11 18:52 | ECHOF ---
Referral Reason:abnormal d-di MEASUREMENTS -------- HEIGHT: 160.0 cm WEIGHT: 123.4 kg BP: 144/55 RVIDd: 2.8 cm (< 3.3) IVSd: 0.9 cm (0.6 - 1.1) LVIDd: 4.2 cm (3.9 - 5.3) LVPWd: 0.9 cm (0.6 - 1.1) IVSs: 1.1 cm LVIDs: 2.3 cm LVPWs: 1.1 cm LA Diam: 2.6 cm (2.7 - 3.8) LAESV Index (A-L): 21.83 ml/m Ao Diam: 2.6 cm (2.0 - 3.7) AV Cusp: 0.9 cm (1.5 - 2.6) LA Diam: 3.9 cm (2.7 - 3.8) MV E Kamar: 1.24 m/s MV DecT: 196 ms MV A Kamar: 1.38 m/s MV E/A Ratio: 0.90 AV maxP.04 mmHg AV meanP.25 mmHg RAP: 5.00 mmHg RVSP: 63.72 mmHg FINDINGS -------- Sinus rhythm. This was a technically adequate study. The left ventricular size is normal. Left ventricular wall thickness is normal. Overall left vent ricular systolic function is normal with, an EF between 55 - 60 %. The right ventricle is normal in size and function. Normal LA size by volume 22+/-6 ml/m2. The right atrium is normal in size. There is moderate aortic valve sclerosis. There is no evidence of aortic regurgitation. There is mild aortic stenosis present. Peak/mean gradient across the Aortic Valve is 27.04mmHg / 15.25mmHg. The mitral valve leaflets are mildly thickened. Mild mitral annular calcification present. There is trace to mild mitral regurgitation. Mild tricuspid regurgitation present. There is moderate pulmonary hypertension. The right ventric ular systolic pressure, as measured by Doppler, is 63.72mmHg. The pulmonic valve was not well visualized. The aortic root size is normal. Normal inferior vena cava with normal inspiratory collapse consistent with estimated right atrial pre ssure of 5 mmHg. There is no pericardial effusion. Moderate Pleural Effusion. CONCLUSIONS -------- 1. Sinus rhythm. 2. This was a technically adequate study. 3. The left ventricular size is normal. 4. Left ventricular wall thickness is normal. 5. Overall left ventricular systolic function is normal with, an EF between 55 - 60 %. 6. Normal LA size by volume 22+/-6 ml/m2. 7. There is moderate aortic valve sclerosis. 8. There is mild aortic stenosis present. 9. Peak/mean gradient across the Aortic Valve is 27.04mmHg / 15.25mmHg. 10. The mitral valve leaflets are mildly thickened. 11. Mild mitral annular calcification present. 12. There is trace to mild mitral regurgitation. 13. Mild tricuspid regurgitation present. 14. There is moderate pulmonary hypertension. 15. The right ventricular systolic pressure, as measured by Doppler, is 63.72mmHg. 16. The pulmonic valve was not well visualized. 17. The aortic root size is normal. 18. There is no pericardial effusion. 19. Moderate Pleural Effusion. GROOVING LATHE TENDER: Javier Caban RDCS
[2017-09-11] MEDS ORDERED: DEXTROSE 5% IN WATER 100 ML with AMIODARONE 150 MG IV ONE (19:15)
--- NOTE | 2017-09-11 20:10 | PN ---
PROGRESS NOTE The patient is seen for followup for acute kidney injury. This morning, patient is lying in bed. She is awake. She is oriented x3. The patient is not in any acute distress. She has not been eating much, according to nursing staff. Her renal function has improved significantly with creatinine now down to 1.24. EXAMINATION: Blood pressure was 129/68, heart rate about 92 per minute. Patient is afebrile. Examination of the heart: S1, S2. Examination of the lungs: Good air entry bilaterally. No crackles or wheezing is heard. Abdomen is soft, nontender, obese. Examination lower extremity shows edema 1+ mainly in the ankles. RESEARCH MECHANIC exam is grossly intact. Patient is moving all 4 extremities. LAB: Show sodium 143, potassium 3.1, chloride 101, BUN 24, serum creatinine 1.24, phosphorus 3.3, magnesium 1.8. ASSESSMENT: 1. Acute kidney injury, acute tubular necrosis, currently significantly improved. Serum creatinine is down to 1.2. 2. Hyperkalemia on initial admission, now resolved. Potassium is now low. 3. Urinary tract infection with E coli, maintained on meropenem. 4. Hypertension, currently slightly better controlled. 5. Chronic coronary artery disease, status post recent non ST elevation. 6. History of recent right lower lobe pneumonia. 7. History of chronic obstructive pulmonary disease. PLAN: DC IV fluids. Continue to encourage increased oral intake. The patient is stable for discharge from Nephrology standpoint. And replace the potassium. MMODL / IJN: [id number] /
[2017-09-11] MEDS: AMIODARONE 450 MG in DEXTROSE 5% IN WATER 250 ML IV SCH ×2 (20:11)
[2017-09-11 20:35] LABS: Glucose,Whole Blood 208 mg/dL (75-99)
[2017-09-11] MEDS: HYDROcodone/APAP 5-325MG 1 EACH TAB PO PRN (21:52)
[2017-09-11] MEDS: AMITRIPTYLINE HCL 50 MG TAB PO SCH (21:54)
[2017-09-11] MEDS: APIXABAN 5 MG TAB PO SCH (21:54)
[2017-09-11] MEDS: ATORVASTATIN 40 MG TAB PO SCH (21:54)
[2017-09-12] MEDS: AMIODARONE 450 MG in DEXTROSE 5% IN WATER 250 ML IV SCH ×6 (02:15→18:35)
[2017-09-12 05:52] LABS: Glucose,Whole Blood 181 mg/dL (75-99)
[2017-09-12 06:52] LABS: Basophils # (A) 0.1 k/uL (0-0.2); Basophils % (A) 0 %; Eosinophils # (A) 0.2 k/uL (0-0.7); Eosinophils % (A) 2 %; HCT 32.5 % (34.0-46.0); Hypochromasia Slight; Lymphocytes # (A) 2.1 k/uL (1.0-4.8); Lymphocytes % (A) 17 %; MCH 26.7 pg (25.0-35.0); MCHC 30.9 g/dL (31.0-37.0); MCV 86.4 fL (80.0-100.0); Monocytes # (A) 0.8 k/uL (0-1.0); Monocytes % (A) 7 %; Neutrophils # (A) 9.2 k/uL (1.3-7.7); Neutrophils % (A) 73 %; Platelet Count 569 k/uL (150-450); RBC 3.76 m/uL (3.80-5.40); RDW 14.3 % (11.5-15.5); WBC 12.6 k/uL (3.8-10.6)
[2017-09-12] MEDS: INSULIN ASPART 100 UNIT/ML 1 ML 10 ML VIAL SQ SCH ×4 (06:56→23:37)
[2017-09-12] MEDS: PANTOPRAZOLE 40 MG TABLET PO SCH (06:56)
[2017-09-12] MEDS: glipiZIDE 10 MG TAB PO SCH ×2 (06:56→16:32)
[2017-09-12 07:02] LABS: Calcium 8.4 mg/dL (8.4-10.2); Magnesium 1.7 mg/dL (1.6-2.3); Phosphorus 2.5 mg/dL (2.5-4.5); Potassium 3.3 mmol/L (3.5-5.1)
[2017-09-12] MEDS ORDERED: Magnesium Replacement Protocol 1 EACH MISC MISCELLANE PRN (07:34)
[2017-09-12] MEDS ORDERED: POTASSIUM CHLORIDE ER 20 MEQ TAB.ER PO STA (07:35)
[2017-09-12] MEDS: ALBUTEROL NEBULIZED 2.5 MG/3 ML INHALATION SCH (08:12)
[2017-09-12] MEDS: MEROPENEM 500 MG in SODIUM CHLORIDE 0.9% 50 ML IVPB SCH ×2 (09:24→21:00)
[2017-09-12] MEDS: HYDROcodone/APAP 5-325MG 1 EACH TAB PO PRN ×2 (09:31→16:31)
[2017-09-12] MEDS: APIXABAN 5 MG TAB PO SCH ×2 (09:32→21:00)
[2017-09-12] MEDS: EZETIMIBE 10 MG TAB PO SCH (09:32)
[2017-09-12] MEDS: METOPROLOL TARTRATE 50 MG TAB PO SCH ×2 (09:32→23:35)
[2017-09-12] MEDS: HEPARIN SODIUM,PORCINE 5,000 UNIT/ML 1 ML VIAL SQ SCH (09:32)
[2017-09-12] MEDS: ASPIRIN 81 MG PO SCH (09:32)
[2017-09-12] MEDS: LINAGLIPTIN 5 MG TABLET PO SCH (09:32)
[2017-09-12] MEDS: amLODIPine 5 MG TAB PO SCH (09:32)
[2017-09-12] MEDS ORDERED: ALBUTEROL NEBULIZED 2.5 MG/3 ML INHALATION PRN (11:26)
[2017-09-12] MEDS: MAGNESIUM SULFATE-D5W PMX 1 GM in DEXTROSE/WATER 1 100ML.BAG IVPB SCH ×2 (11:44→11:45)
[2017-09-12 11:50] LABS: Glucose,Whole Blood 154 mg/dL (75-99)
--- NOTE | 2017-09-12 15:20 | P.PN ---
Subjective Progress Note Date: 09/12/17 82-year-old female who presented to the emergency room with a chief complaint of worsening weakness. Patient's health has been on the decline over the last 3 weeks per the who states she was evaluated at her PCP office 3 weeks ago and has since become progressively more ill and weak. She has not been eating. Denies pain or discomfort. Denies chest pain or pressure. Denies shortness of breath. The patient has a history of coronary artery disease, COPD, diabetes mellitus, gastroesophageal reflux disease, hyperlipidemia, hypertension, myocardial infarction, anxiety, depression,and osteoarthritis. The patient was recently admitted in June 2017 to [facility] with NSTEMI, right lower lobe pneumonia, and exacerbation of COPD. During that hospitalization, cardiology recommended cardiac catheterization and patient declined. Chest x-ray: rotating exam. Cardiomegaly. Correlate for possible pulmonary artery hypertension. Difficult to exclude basilar airspace disease, edema, atelectasis or effusion. CT of the brain: negative for an acute process. ultrasound abdomen and bladder: negative for ascites. Incidental finding of small right pleural effusion. Correlate for hepatocellular disease, hepatic steatosis. gallbladder may be contracted. Spleen is not visualized. Laboratory data: WBC 17.0. Hemoglobin 10.5. Platelet count 394. sodium 133. Potassium 7.7. BUN 84. Creatinine 6.90. Glucose 54. D-dimer: 6.56 lactic acid: 3.8 on admission Urinalysis reveals: turbid yellow urine, 2+ proteinuria, moderate blood, large leukocyte esterase, RBC 9, WBC greater than 182, many WBC clumps, many bacteria , 25 hyaline cast, rare mucus. The patient was admitted to the hospital under the care of Dr. Montoya. Consultations were placed to nephrology, cardiology, and pulmonary for ICU management. 09/08/2017-Note per Dr. Hartman 09/09/2017-Note per Dr. Hartman 09/10/2017 Patient seen and examined at the bedside with Dr. Hartman. Patient was transferred to selective care unit for tachycardia. Apparently, this morning patient was agitated and refusing to take her medications. Dr. Hartman was notified and ordered 10mg lopressor IV x 1 dose. Patients is at the bedside and states she has been refusing all medications unless he is at the bedside and can convince her to take them. Patients hemoglobin is 8.7, likely due to hemodilution. BUN 39. Creatinine 1.89. Urine culture is positive for resistant e. coli. Patient remains on meropenem q [address] Meek is on consult. 09/11/2017 Patient seen and examined at the bedside. Patient is sitting up in the bed. Awake and alert. Cooperative during examination. Patient was transferred to selective care unit yesterday for tachycardia in the 150s. She required IV lopressor. Cardiology was consulted but has signed off the case. echocardiogram was completed and results are currently pending. Patient underwent bilateral knee x-rays which were negative for an acute fracture or dislocation. Bilateral hip x-rays revealing postsurgical changes, no obvious acute fracture, bilateral hip arthropathy. Right ankle x-ray which was negative for an acute fracture or dislocation. Patients blood pressure has been on the higher side. She is receiving metoprolol. indwelling urinary catheter remains intact with yellow urine noted. Patient did undergo a CT of the brain during this admission which was negative for an acute process. the patient was evaluated by Dr. Meek and patient may require outpatient IV antibiotic therapy. Patient has been afebrile for last 24 hours. Heart rate remains in the 90s. Potassium this morning is 3.1. BUN 24. Creatinine 1.24. 09/12/2017 Patient seen and examined at the bedside. Patients mood has been labile. Patient is cooperative and pleasant at times, mostly when her is present , and uncooperative at other times and refusing care. Patient went into Afib with RVR last night. Patient received amio bolus and is currently on amio drip per cardiology. Spoke with electrical service technician who states patient was in atrial fibrillation yesterday evening but has been SR since that time. States no episodes of afib today per telemetry. Echocardiogram was completed revealing ejection fraction of 55-60%, trace to mild mitral regurgitation, mild tricuspid regurgitation, moderate pulmonary hypertension, and RVSP of 63.72 mmHgWBC 12.6. Hemoglobin 10.0. Potassium 3.3. BUN 18. Creatinine 0.95. Mag 1.7. Indwelling urinary catheter remains intact with clear yellow urine. The patient remains on Meropenem per Dr. Meek. Patient may require IV antibiotics outpatient. Awaiting further recommendations from infectious disease. Objective - Vital Signs Vital signs: Vital Signs Temp 97.8 F 03/14/18 04:00 Pulse 111 H 09/12/17 04:00 Resp 16 09/12/17 04:00 BP 187/86 09/12/17 04:00 Pulse Ox 95 09/12/17 04:00 Intake & Output 09/11/17 09/12/17 09/12/17 18:59 06:59 18:59 Intake Total 598 . Output Total 500 550 550 Balance 98 -347.798 -550 Weight 122 kg Intake: Intake, IV Titration . Amount Amiodarone 450 mg In Dextrose 5% in Water 250 ml @ 1 MG/MIN 33.33 mls/ hr IV .[id number] [facility] Rx#: [id number] Oral 598 Output: Urine 500 550 550 Other: Voiding Method Indwelling Catheter Indwelling Catheter - Exam GENERAL: This is a 82-year-old female in no apparent distress at the time of examination. Mentation has improved. HEENT: Head is atraumatic, normocephalic. Pupils are equal, round, and reactive to light. Sclerae anicteric. Conjunctivae are clear. Mucus membranes of the mouth are moist. Neck is supple. RESPIRATORY: Clear to ausculation. No wheezes, rales, or rhonchi. No use of accessory muscles. Patient maintaining oxygen saturation greater than 92%. No chest wall tenderness is noted on palpation or with deep breathing. CARDIOVASCULAR: regular rate and rhythm. S1 and S2 noted. No JVD noted. No S3 or S4 noted. GASTROINTESTINAL: No distention noted. Abdomen soft and round. Normal active bowel sounds auscultated x 4 quadrants. No pain or tenderness noted upon palpation. INTEGUMENTARY: No cyanosis. No jaundice. No rashes noted. No cellulitis noted. EXTREMITIES: 2+ peripheral pulses. trace bilateral lower extremity edema. No calf tenderness noted. NEUROLOGIC: Cranial nerves II-XII intact. PSYCHIATRIC: alert and oriented x 2-3. Mentation has improved. Cooperative. - Labs CBC & Chem 7: 09/12/17 05:53 09/12/17 05:53 Labs: Abnormal Lab Results - Last 24 Hours (Table) 09/11/17 09/11/17 09/11/17 Range/Units 11:37 16:52 20:34 WBC (3.8-10.6) k/uL RBC (3.80-5.40) m/uL Hgb (11.4-16.0) gm/dL Hct (34.0-46.0) % MCHC (31.0-37.0) g/dL Plt Count (150-450) k/uL Neutrophils # (1.3-7.7) k/uL Potassium (3.5-5.1) mmol/L BUN (7-17) mg/dL Glucose (74-99) mg/dL POC Glucose (mg/dL) 122 H 215 H 208 H (75-99) mg/dL 09/12/17 09/12/17 09/12/17 Range/Units 05:51 05:53 05:53 WBC 12.6 H (3.8-10.6) k/uL RBC 3.76 L (3.80-5.40) m/uL Hgb 10.0 L (11.4-16.0) gm/dL Hct 32.5 L (34.0-46.0) % MCHC 30.9 L (31.0-37.0) g/dL Plt Count 569 H (150-450) k/uL Neutrophils # 9.2 H (1.3-7.7) k/uL Potassium 3.3 L (3.5-5.1) mmol/L BUN 18 H (7-17) mg/dL Glucose 168 H (74-99) mg/dL POC Glucose (mg/dL) 181 H (75-99) mg/dL Assessment and Plan Plan: ASSESSMENT: Sepsis, present on admission, secondary to urinary tract infection Urinary tract infection, present on admission, cultures reveal ESBL e. coli Acute renal failure, creatinine 6.9 on admission, baseline creatinine 0.8-1.0, suspect secondary to UTI and dehydration, improving Severe hyperkalemia, potassium 7.7 on admission, secondary to acute renal failure, resolved New onset atrial fibrillation with RVR, converted to SR with amiodarone Septic and metabolic encephalopathy, secondary to UTI and ARF, improving Elevated d-dimer, VQ scan shows low probability for PE Elevated lactic acid, peaked at 6.0, improved to 1.2 with aggressive fluid resuscitation Recent hospitalization in June 2017 for NSTEMI, right lower lobe pneumonia, and exacerbation of COPD, cardiology recommended catheterization at that time and patient declined Diabetes mellitus, type II, hemoglobin A1c 6.2% History of coronary artery disease Chronic obstructive pulmonary disease Essential hypertension Hyperlipidemia Anxiety, unspecified Depression, unspecified Morbid obesity: BMI 44.3 Hypokalemia PLAN: Discontinue urinary catheter tomorrow morning at 0600 Replace potassium and magnesium Dr. Meek on consult. Continue meropenem Patient may require outpatient IV antibiotics and PICC line. Await further recommendations from Dr. Meek Pulmonary on consult. Appreciate recommendations and input Cardiology was consulted but has signed off. Will reconsult due to afib Eliquis 5 mg by mouth twice a day started per cardiology Increase Norvasc to 10 mg daily Nephrology on consult. Appreciate recommendations and input Home meds as appropriate Monitor labs PT/OT GI prophylaxis: Protonix 40 mg PO Daily DVT prophylaxis: Eliquis 5 mg by mouth twice a day Monitor vital signs and address as appropriate Discharge planning: Patient will likely require ECF at the time of discharge. Patient requesting [facility] Further recommendations pending patient's course Nurse practitioner note has been reviewed by physician. Signing provider agrees with the documented findings, assessment, and plan of care.
[2017-09-12 17:18] LABS: Glucose,Whole Blood 180 mg/dL (75-99)
[2017-09-12] MEDS: ACETAMINOPHEN TAB 325 MG TAB PO PRN (19:37)
[2017-09-12 20:36] LABS: Glucose,Whole Blood 126 mg/dL (75-99)
--- NOTE | 2017-09-12 22:32 | P.PN ---
Subjective Progress Note Date: 09/12/17 Principal diagnosis: uti 82-year-old female presents to Hospital from home with a several-day history of feeling poorly. She developed fever with chills and increasing fatigue and malaise. She was not eating well and not drinking well. She normally is awake alert sharp pleasant and interactive by her personality, the family related that she became dull confused and combative and constantly she was brought to Hospital for evaluation. At admission there was evidence of acute renal failure, hyperkalemia and evidence of sepsis with evidence of leukocytosis and a urinary tract infection. The patient was resuscitated and admitted to hospital. There is evaluated d-dimer and constantly VQ scan was performed which was low probability for pulmonary embolus. Patient underwent ultrasound of the abdomen which failed to reveal evidence of any obstruction to the urinary system. The patient did have a change of her status and required transfer up-to-date Selective care unit because of tachycardia. This is now improved the patient remains difficult to interview. Her granddaughter and are present. The relate that her mental status is completely different than her baseline. She normally runs a household pays all of the bills does the shopping and likes to cook. This is markedly different from her current status where she has been refusing to take medications does not seem to trust any of the medical staff, only seems to have trust for her and granddaughter. With evidence of the ESBL E. coli urinary tract infection the infectious diseases consultation was requested. With the patient's resuscitation admission her acute renal failure has improved her crit has gone from 6.9 down to 1.89. Her hypokalemia is also resolved. She however has been having fevers 101 in the last day. Antibacterial therapy was altered from Rocephin to meropenem for the ESBL infection. 09/12/2017 patient is comfortable at this point in time., Apparently she had a much better day yesterday than today. relates that yesterday she was more awake alert and interactive today she is being somewhat negative and more difficult which is not her usual personality. She however is much more talkative to me today and appears to have an improved level of orientation. She did have a significant change of her status where she developed atrial fibrillation with a rapid ventricular response requiring amiodarone infusion. She is improved this complaining of some headache. Objective - Vital Signs Vital signs: Vital Signs Temp 98.3 F 09/12/17 20:00 Pulse 93 09/12/17 20:00 Resp 18 09/12/17 20:00 BP 196/83 09/12/17 20:00 Pulse Ox 96 09/12/17 20:00 Intake & Output 09/12/17 09/12/17 09/13/17 06:59 18:59 06:59 Intake Total 202.202 208 Output Total 550 850 300 Balance -347.798 -642 -300 Weight 122 kg 122 kg Intake: Intake, IV Titration . Amount Amiodarone 450 mg In Dextrose 5% in Water 250 ml @ 1 MG/MIN 33.33 mls/ hr IV .Q7H31M [facility] Rx#: [id number] Oral 208 Output: Urine 550 850 300 Other: Voiding Method Indwelling Catheter Indwelling Catheter Indwelling Catheter # Voids 1 1 # Bowel Movements 0 0 - Exam HEENT: Anicteric conjunctiva are pink and moist nasal mucosa grossly intact without significant lesions, there is no thrush. Neck: The neck is supple without significant lymphadenopathy or thyromegaly. Lungs: Good bilateral air entry without significant crackles or wheezing. There is no significant bronchial sounds. There is no egophony or dullness. Heart: Tachycardic and regular audible S1 and S2 soft S4. Murmur click or rub Abdomen: Obese, Positive bowel sounds soft and nontender without palpable masses or organomegaly. There was no guarding or rebound. Extremities: The upper extremities have excellent pulses they are symmetric, no significant petechiae or telangiectasia. No splinter hemorrhages were noted. The lower extremities are free from significant edema. The peripheral pulses were 2+ and symmetric. She was complaining of significant discomfort to her legs this is much less uncomfortable today and there is no new point tenderness of the ankles knees or hips at this time. Neuro: The patient is awake alert oriented to person and place she is much more pleasant than the first visit but is still not at her usual baseline personality , but he has no acute gross focal sensory motor deficits at this time - Labs CBC & Chem 7: 09/12/17 05:53 09/12/17 05:53 Labs: Abnormal Lab Results - Last 24 Hours (Table) 09/12/17 09/12/17 09/12/17 Range/Units 05:51 05:53 05:53 WBC 12.6 H (3.8-10.6) k/uL RBC 3.76 L (3.80-5.40) m/uL Hgb 10.0 L (11.4-16.0) gm/dL Hct 32.5 L (34.0-46.0) % MCHC 30.9 L (31.0-37.0) g/dL Plt Count 569 H (150-450) k/uL Neutrophils # 9.2 H (1.3-7.7) k/uL Potassium 3.3 L (3.5-5.1) mmol/L BUN 18 H (7-17) mg/dL Glucose 168 H (74-99) mg/dL POC Glucose (mg/dL) 181 H (75-99) mg/dL 09/12/17 09/12/17 09/12/17 Range/Units 11:35 16:23 20:35 WBC (3.8-10.6) k/uL RBC (3.80-5.40) m/uL Hgb (11.4-16.0) gm/dL Hct (34.0-46.0) % MCHC (31.0-37.0) g/dL Plt Count (150-450) k/uL Neutrophils # (1.3-7.7) k/uL Potassium (3.5-5.1) mmol/L BUN (7-17) mg/dL Glucose (74-99) mg/dL POC Glucose (mg/dL) 154 H 180 H 126 H (75-99) mg/dL Laboratory Results WBC 12.6 k/uL (3.8-10.6) H 09/12/17 05:53 RBC 3.76 m/uL (3.80-5.40) L 09/12/17 05:53 Hgb 10.0 gm/dL (11.4-16.0) L 09/12/17 05:53 Hct 32.5 % (34.0-46.0) L 09/12/17 05:53 MCV 86.4 fL (80.0-100.0) 09/12/17 05:53 MCH 26.7 pg (25.0-35.0) 09/12/17 05:53 MCHC 30.9 g/dL (31.0-37.0) L 09/12/17 05:53 RDW 14.3 % (11.5-15.5) 09/12/17 05:53 Plt Count 569 k/uL (150-450) H 09/12/17 05:53 Neutrophils % 73 % 09/12/17 05:53 Lymphocytes % 17 % 09/12/17 05:53 Monocytes % 7 % 09/12/17 05:53 Eosinophils % 2 % 09/12/17 05:53 Basophils % 0 % 09/12/17 05:53 Neutrophils # 9.2 k/uL (1.3-7.7) H 09/12/17 05:53 Lymphocytes # 2.1 k/uL (1.0-4.8) 09/12/17 05:53 Monocytes # 0.8 k/uL (0-1.0) 09/12/17 05:53 Eosinophils # 0.2 k/uL (0-0.7) 09/12/17 05:53 Basophils # 0.1 k/uL (0-0.2) 09/12/17 05:53 Hypochromasia Slight 09/12/17 05:53 PT 10.1 sec (9.0-12.0) 09/06/17 20:16 INR 1.0 (<1.2) 09/06/17 20:16 APTT 26.1 sec (22.0-30.0) 09/06/17 20:16 D-Dimer 6.56 mg/L FEU (<0.60) H 09/06/17 20:16 Sodium 142 mmol/L (137-145) 09/12/17 05:53 Potassium 3.3 mmol/L (3.5-5.1) L 09/12/17 05:53 Chloride 104 mmol/L (98-107) 09/12/17 05:53 Carbon Dioxide 30 mmol/L (22-30) 09/12/17 05:53 Anion Gap 8 mmol/L 09/12/17 05:53 BUN 18 mg/dL (7-17) H 09/12/17 05:53 Creatinine 0.95 mg/dL (0.52-1.04) 09/12/17 05:53 Est GFR (CKD-EPI)AfAm 66 (>60 ml/min/1.73 sqM) 09/12/17 05:53 Est GFR (CKD-EPI)NonAf 57 (>60 ml/min/1.73 sqM) 09/12/17 05:53 Glucose 168 mg/dL (74-99) H 09/12/17 05:53 POC Glucose (mg/dL) 126 mg/dL (75-99) H 09/12/17 20:35 POC Glu Fireman ID Didi Batista 09/12/17 20:[address] Glu mg/dL 131 09/09/17 06:27 Hemoglobin A1c 6.2 % (4.0-6.0) H 09/09/17 06:27 Lactic Ac Sepsis Rflx Y 09/06/17 20:56 Plasma Lactic Acid Russel 0.8 mmol/L (0.7-2.0) 09/10/17 08:28 Calcium 8.4 mg/dL (8.4-10.2) 09/12/17 05:53 Phosphorus 2.5 mg/dL (2.5-4.5) 09/12/17 05:53 Magnesium 1.7 mg/dL (1.6-2.3) 09/12/17 05:53 Total Bilirubin 0.1 mg/dL (0.2-1.3) L 09/07/17 05:57 AST 57 U/L (14-36) H 09/07/17 05:57 ALT 38 U/L (9-52) 09/07/17 05:57 Alkaline Phosphatase 87 U/L (38-126) 09/07/17 05:57 Total Creatine Kinase 1264 U/L (30-135) H 09/06/17 20:16 CK-MB (CK-2) 6.8 ng/mL (0.0-2.4) H* 09/06/17 20:16 CK-MB (CK-2) Rel Index 0.5 09/06/17 20:16 Troponin I <0.012 ng/mL (0.000-0.034) 09/06/17 20:16 Total Protein 5.1 g/dL (6.3-8.2) L 09/07/17 05:57 Albumin 2.6 g/dL (3.5-5.0) L 09/07/17 05:57 TSH 1.080 mIU/L (0.465-4.680) 09/10/17 06:58 Urine Color Yellow 09/06/17 22:14 Urine Appearance Turbid (Clear) H 09/06/17 22:14 Urine pH 6.5 (5.0-8.0) 09/06/17 22:14 Ur Specific Leupp 1.012 (1.001-1.035) 09/06/17 22:14 Urine Protein 2+ (Negative) H 09/06/17 22:14 Urine Glucose (UA) Negative (Negative) 09/06/17 22:14 Urine Ketones Negative (Negative) 09/06/17 22:14 Urine Blood Moderate (Negative) H 09/06/17 22:14 Urine Nitrite Negative (Negative) 09/06/17 22:14 Urine Bilirubin Negative (Negative) 09/06/17 22:14 Urine Urobilinogen <2.0 mg/dL (<2.0) 09/06/17 22:14 Ur Leukocyte Esterase Large (Negative) H 09/06/17 22:14 Urine RBC 9 /hpf (0-5) H 09/06/17 22:14 Urine WBC >182 /hpf (0-5) H 09/06/17 22:14 Urine WBC Clumps Many /hpf (None) H 09/06/17 22:14 Ur Squamous Epith Cells 1 /hpf (0-4) 09/06/17 22:14 Urine Bacteria Many /hpf (None) H 09/06/17 22:14 Hyaline Casts 25 /lpf (0-2) H 09/06/17 22:14 Urine Mucus Rare /hpf (None) H 09/06/17 22:14 Microbiology 09/06/17 22:14 Urine,Catheterized Urine Culture - Final Escherichia coli Assessment and Plan (1) Severe sepsis with acute organ dysfunction due to Gram negative bacteria Current Visit: Yes Status: Acute Code(s): A41.50 - GRAM-NEGATIVE SEPSIS, UNSPECIFIED; R65.20 - SEVERE SEPSIS WITHOUT SEPTIC SHOCK SNOMED Code(s): 532695645837061 (2) Infection due to ESBL-producing Escherichia coli Narrative/Plan: 82-year-old female presents to Hospital with her family with altered mental status not functioning well for several days before coming to Hospital having fever and chills, granddaughter relates that the patient may have missed some of her medication shortly before she started becoming ill. It is related that it admission the patient had altered mental status which may not be a bit more improved but still is uncooperative and unpleasant. It admission she had acute renal failure that is improved her creatinine is now down to 1.89. Hyperkalemia has resolved. Has been seen by cardiology and they are following as needed. She did have evidence of ongoing fever and urine culture now has evidence of the ESBL E. coli and constantly antibiotic therapy was altered to meropenem because of her severe sepsis with acute organ dysfunction at admission with her renal failure. The discharge plan as far as antibiotics therapy will be made as she has improvement of her status there is a possibility that she will require outpatient intravenous antibiotic therapy. Nephrology is following no evidence of any need for renal replacement therapy at this time. Family is updated with her status, information about ESBL infection is provided. 09/12/2017 the patient has had some improvement. However now has atrial fibrillation with a rapid ventricular response which has caused some progression of her improvement. She however is comfortable and seems to be feeling better and has been able to eat her meals although not completely. She is afebrile and her leukocytosis has improved. Her acute renal failure is almost completely resolved. The overall plan for antibiotic therapy and its completion has not been finalized at this time may need outpatient intravenous antibiotic therapy. Current Visit: Yes Status: Acute Code(s): A49.8 - OTHER BACTERIAL INFECTIONS OF UNSPECIFIED SITE; Z16.12 - EXTENDED SPECTRUM BETA LACTAMASE (ESBL ) RESISTANCE SNOMED Code(s): 391247346 (3) Acute renal failure Current Visit: Yes Status: Acute Code(s): N17.9 - ACUTE KIDNEY FAILURE, UNSPECIFIED SNOMED Code(s): 53664028 (4) Hyperkalemia Current Visit: Yes Status: Acute Code(s): E87.5 - HYPERKALEMIA SNOMED Code (s): 79706222 (5) Altered mental status Current Visit: Yes Status: Acute Code(s): R41.82 - ALTERED MENTAL STATUS, UNSPECIFIED SNOMED Code(s): 520563772
[2017-09-12] MEDS: AMITRIPTYLINE HCL 50 MG TAB PO SCH (23:35)
[2017-09-12] MEDS: ATORVASTATIN 40 MG TAB PO SCH (23:37)
[2017-09-13] MEDS: HYDROcodone/APAP 5-325MG 1 EACH TAB PO PRN ×3 (04:46→17:56)
[2017-09-13 05:47] LABS: Glucose,Whole Blood 145 mg/dL (75-99)
[2017-09-13 06:27] LABS: Basophils % (A) 0 %; Eosinophils # (A) 0.4 k/uL (0-0.7); Eosinophils % (A) 3 %; HCT 31.3 % (34.0-46.0); HGB 9.5 gm/dL (11.4-16.0); Hypochromasia Moderate; Lymphocytes # (A) 1.9 k/uL (1.0-4.8); Lymphocytes % (A) 15 %; MCH 26.5 pg (25.0-35.0); MCHC 30.4 g/dL (31.0-37.0); MCV 87.2 fL (80.0-100.0); Mean Platelet Volume 6.8; Monocytes # (A) 0.7 k/uL (0-1.0); Monocytes % (A) 5 %; Neutrophils # (A) 9.6 k/uL (1.3-7.7); Neutrophils % (A) 75 %; Platelet Count 511 k/uL (150-450); RBC 3.58 m/uL (3.80-5.40); RDW 14.4 % (11.5-15.5); WBC 12.9 k/uL (3.8-10.6)
[2017-09-13] MEDS: INSULIN ASPART 100 UNIT/ML 1 ML 10 ML VIAL SQ SCH ×4 (06:32→20:53)
[2017-09-13] MEDS: PANTOPRAZOLE 40 MG TABLET PO SCH (06:33)
[2017-09-13 06:46] LABS: Calcium 7.9 mg/dL (8.4-10.2); Phosphorus 2.7 mg/dL (2.5-4.5); Potassium 3.6 mmol/L (3.5-5.1)
[2017-09-13] MEDS: METOPROLOL TARTRATE 50 MG TAB PO SCH ×2 (08:01→20:00)
[2017-09-13] MEDS: amLODIPine 10 MG TAB PO SCH (08:02)
[2017-09-13] MEDS: LINAGLIPTIN 5 MG TABLET PO SCH (08:02)
[2017-09-13] MEDS: ACETAMINOPHEN TAB 325 MG TAB PO PRN ×2 (08:02→21:49)
[2017-09-13] MEDS: ASPIRIN 81 MG PO SCH (08:03)
[2017-09-13] MEDS: EZETIMIBE 10 MG TAB PO SCH (08:04)
[2017-09-13] MEDS: MEROPENEM 500 MG in SODIUM CHLORIDE 0.9% 50 ML IVPB SCH (08:04)
[2017-09-13] MEDS: glipiZIDE 10 MG TAB PO SCH ×2 (09:51→17:45)
[2017-09-13] MEDS: APIXABAN 5 MG TAB PO SCH ×2 (09:52→19:37)
[2017-09-13 11:46] LABS: Glucose,Whole Blood 170 mg/dL (75-99)
--- NOTE | 2017-09-13 13:37 | P.PN ---
Subjective Progress Note Date: 09/13/17 82-year-old female who presented to the emergency room with a chief complaint of worsening weakness. Patient's health has been on the decline over the last 3 weeks per the who states she was evaluated at her PCP office 3 weeks ago and has since become progressively more ill and weak. She has not been eating. Denies pain or discomfort. Denies chest pain or pressure. Denies shortness of breath. The patient has a history of coronary artery disease, COPD, diabetes mellitus, gastroesophageal reflux disease, hyperlipidemia, hypertension, myocardial infarction, anxiety, depression,and osteoarthritis. The patient was recently admitted in June 2017 to [facility] with NSTEMI, right lower lobe pneumonia, and exacerbation of COPD. During that hospitalization, cardiology recommended cardiac catheterization and patient declined. Chest x-ray: rotating exam. Cardiomegaly. Correlate for possible pulmonary artery hypertension. Difficult to exclude basilar airspace disease, edema, atelectasis or effusion. CT of the brain: negative for an acute process. ultrasound abdomen and bladder: negative for ascites. Incidental finding of small right pleural effusion. Correlate for hepatocellular disease, hepatic steatosis. gallbladder may be contracted. Spleen is not visualized. Laboratory data: WBC 17.0. Hemoglobin 10.5. Platelet count 394. sodium 133. Potassium 7.7. BUN 84. Creatinine 6.90. Glucose 54. D-dimer: 6.56 lactic acid: 3.8 on admission Urinalysis reveals: turbid yellow urine, 2+ proteinuria, moderate blood, large leukocyte esterase, RBC 9, WBC greater than 182, many WBC clumps, many bacteria , 25 hyaline cast, rare mucus. The patient was admitted to the hospital under the care of Dr. Montoya. Consultations were placed to nephrology, cardiology, and pulmonary for ICU management. 09/08/2017-Note per Dr. Hartman 09/09/2017-Note per Dr. Hartman 09/10/2017 Patient seen and examined at the bedside with Dr. Hartman. Patient was transferred to selective care unit for tachycardia. Apparently, this morning patient was agitated and refusing to take her medications. Dr. Hartman was notified and ordered 10mg lopressor IV x 1 dose. Patients is at the bedside and states she has been refusing all medications unless he is at the bedside and can convince her to take them. Patients hemoglobin is 8.7, likely due to hemodilution. BUN 39. Creatinine 1.89. Urine culture is positive for resistant e. coli. Patient remains on meropenem q [address] Meek is on consult. 09/11/2017 Patient seen and examined at the bedside. Patient is sitting up in the bed. Awake and alert. Cooperative during examination. Patient was transferred to selective care unit yesterday for tachycardia in the 150s. She required IV lopressor. Cardiology was consulted but has signed off the case. echocardiogram was completed and results are currently pending. Patient underwent bilateral knee x-rays which were negative for an acute fracture or dislocation. Bilateral hip x-rays revealing postsurgical changes, no obvious acute fracture, bilateral hip arthropathy. Right ankle x-ray which was negative for an acute fracture or dislocation. Patients blood pressure has been on the higher side. She is receiving metoprolol. indwelling urinary catheter remains intact with yellow urine noted. Patient did undergo a CT of the brain during this admission which was negative for an acute process. the patient was evaluated by Dr. Meek and patient may require outpatient IV antibiotic therapy. Patient has been afebrile for last 24 hours. Heart rate remains in the 90s. Potassium this morning is 3.1. BUN 24. Creatinine 1.24. 09/12/2017 Patient seen and examined at the bedside. Patients mood has been labile. Patient is cooperative and pleasant at times, mostly when her is present , and uncooperative at other times and refusing care. Patient went into Afib with RVR last night. Patient received amio bolus and is currently on amio drip per cardiology. Spoke with radiotelephone technical operator who states patient was in atrial fibrillation yesterday evening but has been SR since that time. States no episodes of afib today per telemetry. Echocardiogram was completed revealing ejection fraction of 55-60%, trace to mild mitral regurgitation, mild tricuspid regurgitation, moderate pulmonary hypertension, and RVSP of 63.72 mmHgWBC 12.6. Hemoglobin 10.0. Potassium 3.3. BUN 18. Creatinine 0.95. Mag 1.7. Indwelling urinary catheter remains intact with clear yellow urine. The patient remains on Meropenem per Dr. Meek. Patient may require IV antibiotics outpatient. Awaiting further recommendations from infectious disease. 09/13/2017 Patient seen and examined at the bedside. Patient remains in sinus mechanism. Spoke with nursing and asked to discontinue urinary catheter. Infectious disease ordered PICC line to be placed. Patient is scheduled for tomorrow afternoon secondary to receiving Eliquis last night per nursing. Patients blood pressure this morning is 123/84. Previous reading of 187/79. Norvasc was increased to 10mg daily yesterday. potassium and magnesium were low yesterday and supplemented. Potassium this morning is 3.6. Magnesium is 2.0. Objective - Vital Signs Vital signs: Vital Signs Temp 96.8 F L 09/13/17 04:00 Pulse 96 09/13/17 04:00 Resp 18 09/13/17 04:00 BP 123/84 09/13/17 04:00 Pulse Ox 96 09/13/17 04:00 Intake & Output 09/12/17 09/13/17 09/13/17 18:59 06:59 18:59 Intake Total 208 Output Total 850 1350 Balance -642 -1350 Weight 119.5 kg Intake: Oral 208 Output: Urine 850 1350 Uretheral ([place]yl[place]) 350 Other: Voiding Method Indwelling Catheter Indwelling Catheter # Voids 1 1 # Bowel Movements 0 0 - Exam GENERAL: This is a 82-year-old female in no apparent distress at the time of examination. Mentation has improved. HEENT: Head is atraumatic, normocephalic. Pupils are equal, round, and reactive to light. Sclerae anicteric. Conjunctivae are clear. Mucus membranes of the mouth are moist. Neck is supple. RESPIRATORY: Clear to ausculation. No wheezes, rales, or rhonchi. No use of accessory muscles. Patient maintaining oxygen saturation greater than 92%. No chest wall tenderness is noted on palpation or with deep breathing. CARDIOVASCULAR: regular rate and rhythm. S1 and S2 noted. No JVD noted. No S3 or S4 noted. GASTROINTESTINAL: No distention noted. Abdomen soft and round. Normal active bowel sounds auscultated x 4 quadrants. No pain or tenderness noted upon palpation. INTEGUMENTARY: No cyanosis. No jaundice. No rashes noted. No cellulitis noted. EXTREMITIES: 2+ peripheral pulses. trace bilateral lower extremity edema. No calf tenderness noted. NEUROLOGIC: Cranial nerves II-XII intact. PSYCHIATRIC: alert and oriented x 2-3. Mentation has improved. Cooperative. - Labs CBC & Chem 7: 09/13/17 05:30 03/15/18 05:30 Labs: Abnormal Lab Results - Last 24 Hours (Table) 09/12/17 09/12/17 09/12/17 Range/Units 11:35 16:23 20:35 WBC (3.8-10.6) k/uL RBC (3.80-5.40) m/uL Hgb (11.4-16.0) gm/dL Hct (34.0-46.0) % MCHC (31.0-37.0) g/dL Plt Count (150-450) k/uL Neutrophils # (1.3-7.7) k/uL Glucose (74-99) mg/dL POC Glucose (mg/dL) 154 H 180 H 126 H (75-99) mg/dL Calcium (8.4-10.2) mg/dL 09/13/17 09/13/17 09/13/17 Range/Units 05:30 05:30 05:45 WBC 12.9 H (3.8-10.6) k/uL RBC 3.58 L (3.80-5.40) m/uL Hgb 9.5 L (11.4-16.0) gm/dL Hct 31.3 L (34.0-46.0) % MCHC 30.4 L (31.0-37.0) g/dL Plt Count 511 H (150-450) k/uL Neutrophils # 9.6 H (1.3-7.7) k/uL Glucose 149 H (74-99) mg/dL POC Glucose (mg/dL) 145 H (75-99) mg/dL Calcium 7.9 L (8.4-10.2) mg/dL Assessment and Plan Plan: ASSESSMENT: Sepsis, present on admission, secondary to urinary tract infection Urinary tract infection, present on admission, cultures reveal ESBL e. coli Acute renal failure, creatinine 6.9 on admission, baseline creatinine 0.8-1.0, suspect secondary to UTI and dehydration, improving Severe hyperkalemia, potassium 7.7 on admission, secondary to acute renal failure, resolved New onset atrial fibrillation with RVR, converted to SR with amiodarone Septic and metabolic encephalopathy, secondary to UTI and ARF, improving Elevated d-dimer, VQ scan shows low probability for PE Elevated lactic acid, peaked at 6.0, improved to 1.2 with aggressive fluid resuscitation Recent hospitalization in June 2017 for NSTEMI, right lower lobe pneumonia, and exacerbation of COPD, cardiology recommended catheterization at that time and patient declined Diabetes mellitus, type II, hemoglobin A1c 6.2% History of coronary artery disease Chronic obstructive pulmonary disease Essential hypertension Hyperlipidemia Anxiety, unspecified Depression, unspecified Morbid obesity: BMI 44.3 Hypokalemia PLAN: Please discontinue urinary catheter Bladder scan after first void or within 6 hours, whichever is first Dr. Meek on consult. Continue meropenem Patient scheduled for PICC line insertion tomorrow Hold Eliquis for PICC line insertion Pulmonary on consult. Appreciate recommendations and input Cardiology on consult. Appreciate recommendations and input Increase Norvasc to 10 mg daily Nephrology on consult. Appreciate recommendations and input Home meds as appropriate Monitor labs PT/OT GI prophylaxis: Protonix 40 mg PO Daily DVT prophylaxis: Eliquis 5 mg by mouth twice a day Monitor vital signs and address as appropriate Discharge planning: [facility] Further recommendations pending patient's course Possible discharge to E[facility] tomorrow afternoon depending on time of PICC line insertion. If not, may be discharged Sunday per Gera bilingual social worker Nurse practitioner note has been reviewed by physician. Signing provider agrees with the documented findings, assessment, and plan of care.
--- NOTE | 2017-09-13 16:24 | CDI ---
Last Revision, June 2017 Documentation Clarification Form Date: 09/13/2017 From: Swetha Rodriguez Admit Date: 09/06/2017 10:44:00 PM Patient Name: Concepcion Newberry Visit Number: [id number] Discharge Date: ATTENTION: The Clinical Documentation Specialists (CDI) and [facility] Coding Staff appreciate your assistance in clarifying documentation. Please respond to the clarification below the line at the bottom and electronically sign. The CDI & [facility] Coding staff will review the response and follow-up if needed. Please note: Queries are made part of the Legal Health Record. If you have any questions, please contact the author of this message via ITS. Dr. Neelam Underwood: 82 yo female, admit with worsening weakness. Diagnosed with Sepsis secondary to UTI, Acute renal failure, Cr 6.9 on admit and severe hyperkalemia. History/Risk Factors: CAD, COPD, DM, GERD, Hyperlipidemia, Hypertension, HI, Anxiety, Depression, Osteoarthritis. Admit in w/NSTEMI, RLLL pneumonia & exac of COPD. Clinical Indicators: Current BUN/CR/GFR: 14 / 0.85 / 65 Patients Baseline: Creatinine 0.8 - 1.0 Treatment: IV fluids & IV fluid boluses, IV antibiotics, IV Diuretics, Neb txs, IV Mag Sulfate. In order to capture the severity of condition, please clarify if the condition signifies: CKD Stage 1 (GFR > 90) CKD Stage 2 (GFR 60-89) CKD Stage 3 (GFR 30-59) CKD Stage 4 (GFR 15-29) CKD Stage 5 (GFR <15) ESRD Other, please specify Unable to determine Please continue to document in your progress notes and discharge summary in order to capture severity of illness and risk of mortality. Include clinical findings that support your diagnosis. MTDD
[2017-09-13 16:45] LABS: Glucose,Whole Blood 123 mg/dL (75-99)
[2017-09-13] MEDS: MEROPENEM 1 GM in SODIUM CHLORIDE 0.9% 100 ML IVPB SCH (17:42)
[2017-09-13] MEDS: ATORVASTATIN 40 MG TAB PO SCH (20:00)
[2017-09-13] MEDS: AMITRIPTYLINE HCL 50 MG TAB PO SCH (20:00)
[2017-09-13 20:53] LABS: Glucose,Whole Blood 136 mg/dL (75-99)
--- NOTE | 2017-09-13 22:56 | P.PN ---
Subjective Progress Note Date: 09/13/17 Principal diagnosis: uti 82-year-old female presents to Hospital from home with a several-day history of feeling poorly. She developed fever with chills and increasing fatigue and malaise. She was not eating well and not drinking well. She normally is awake alert sharp pleasant and interactive by her personality, the family related that she became dull confused and combative and constantly she was brought to Hospital for evaluation. At admission there was evidence of acute renal failure, hyperkalemia and evidence of sepsis with evidence of leukocytosis and a urinary tract infection. The patient was resuscitated and admitted to hospital. There is evaluated d-dimer and constantly VQ scan was performed which was low probability for pulmonary embolus. Patient underwent ultrasound of the abdomen which failed to reveal evidence of any obstruction to the urinary system. The patient did have a change of her status and required transfer up-to-date Selective care unit because of tachycardia. This is now improved the patient remains difficult to interview. Her granddaughter and are present. The relate that her mental status is completely different than her baseline. She normally runs a household pays all of the bills does the shopping and likes to cook. This is markedly different from her current status where she has been refusing to take medications does not seem to trust any of the medical staff, only seems to have trust for her and granddaughter. With evidence of the ESBL E. coli urinary tract infection the infectious diseases consultation was requested. With the patient's resuscitation admission her acute renal failure has improved her crit has gone from 6.9 down to 1.89. Her hypokalemia is also resolved. She however has been having fevers 101 in the last day. Antibacterial therapy was altered from Rocephin to meropenem for the ESBL infection. 09/12/2017 patient is comfortable at this point in time., Apparently she had a much better day yesterday than today. relates that yesterday she was more awake alert and interactive today she is being somewhat negative and more difficult which is not her usual personality. She however is much more talkative to me today and appears to have an improved level of orientation. She did have a significant change of her status where she developed atrial fibrillation with a rapid ventricular response requiring amiodarone infusion. She is improved this complaining of some headache. 09/13/2017 the patient is more comfortable today. She Sensipar awake and alert. 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 This is a significant improvement of her neurological status. Other than her chronic discomforts in headache she has no other new complaints. Objective - Vital Signs Vital signs: Vital Signs Temp 97.6 F 09/13/17 20:00 Pulse 89 09/13/17 20:00 Resp 16 09/13/17 20:00 BP 127/59 09/13/17 20:00 Pulse Ox 98 09/13/17 20:00 Intake & Output 09/13/17 09/13/17 09/14/17 06:59 18:59 06:59 Intake Total 360 220 Output Total 1350 550 Balance -1350 -190 220 Weight 119.5 kg 119.5 kg Intake: Oral 360 220 Output: Urine 1350 550 Uretheral ([place]) 350 Other: Voiding Method Indwelling Catheter Bedside Commode Bedside Commode # Voids 1 1 # Bowel Movements 0 1 - Exam HEENT: Anicteric conjunctiva are pink and moist nasal mucosa grossly intact without significant lesions, there is no thrush. Neck: The neck is supple without significant lymphadenopathy or thyromegaly. Lungs: Good bilateral air entry without significant crackles or wheezing. There is no significant bronchial sounds. There is no egophony or dullness. Heart: Tachycardic and regular audible S1 and S2 soft S4. Murmur click or rub Abdomen: Obese, Positive bowel sounds soft and nontender without palpable masses or organomegaly. There was no guarding or rebound. Extremities: The upper extremities have excellent pulses they are symmetric, no significant petechiae or telangiectasia. No splinter hemorrhages were noted. The lower extremities are free from significant edema. The peripheral pulses were 2+ and symmetric. She was complaining of significant discomfort to her legs this is much less uncomfortable today and there is no new point tenderness of the ankles knees or hips at this time. Neuro: The patient is awake alert oriented to person and place and time. No new acute gross focal sensory motor deficits are noted. She's been able to get to the commode chair with assistance today. - Labs CBC & Chem 7: 09/13/17 05:30 09/13/17 05:30 Labs: Abnormal Lab Results - Last 24 Hours (Table) 09/13/17 09/13/17 09/13/17 Range/Units 05:30 05:30 05:45 WBC 12.9 H (3.8-10.6) k/uL RBC 3.58 L (3.80-5.40) m/uL Hgb 9.5 L (11.4-16.0) gm/dL Hct 31.3 L (34.0-46.0) % MCHC 30.4 L (31.0-37.0) g/dL Plt Count 511 H (150-450) k/uL Neutrophils # 9.6 H (1.3-7.7) k/uL Glucose 149 H (74-99) mg/dL POC Glucose (mg/dL) 145 H (75-99) mg/dL Calcium 7.9 L (8.4-10.2) mg/dL 09/13/17 09/13/17 09/13/17 Range/Units 11:43 16:27 20:48 WBC (3.8-10.6) k/uL RBC (3.80-5.40) m/uL Hgb (11.4-16.0) gm/dL Hct (34.0-46.0) % MCHC (31.0-37.0) g/dL Plt Count (150-450) k/uL Neutrophils # (1.3-7.7) k/uL Glucose (74-99) mg/dL POC Glucose (mg/dL) 170 H 123 H 136 H (75-99) mg/dL Calcium (8.4-10.2) mg/dL Laboratory Results WBC 12.9 k/uL (3.8-10.6) H 09/13/17 05:30 RBC 3.58 m/uL (3.80-5.40) L 09/13/17 05:30 Hgb 9.5 gm/dL (11.4-16.0) L 09/13/17 05:30 Hct 31.3 % (34.0-46.0) L 09/13/17 05:30 MCV 87.2 fL (80.0-100.0) 09/13/17 05:30 MCH 26.5 pg (25.0-35.0) 09/13/17 05:30 MCHC 30.4 g/dL (31.0-37.0) L 09/13/17 05:30 RDW 14.4 % (11.5-15.5) 09/13/17 05:30 Plt Count 511 k/uL (150-450) H 09/13/17 05:30 Neutrophils % 75 % 09/13/17 05:30 Lymphocytes % 15 % 09/13/17 05:30 Monocytes % 5 % 09/13/17 05:30 Eosinophils % 3 % 09/13/17 05:30 Basophils % 0 % 09/13/17 05:30 Neutrophils # 9.6 k/uL (1.3-7.7) H 09/13/17 05:30 Lymphocytes # 1.9 k/uL (1.0-4.8) 09/13/17 05:30 Monocytes # 0.7 k/uL (0-1.0) 09/13/17 05:30 Eosinophils # 0.4 k/uL (0-0.7) 09/13/17 05:30 Basophils # 0.0 k/uL (0-0.2) 09/13/17 05:30 Hypochromasia Moderate 09/13/17 05:30 PT 10.1 sec (9.0-12.0) 09/06/17 20:16 INR 1.0 (<1.2) 09/06/17 20:16 APTT 26.1 sec (22.0-30.0) 09/06/17 20:16 D-Dimer 6.56 mg/L FEU (<0.60) H 09/06/17 20:16 Sodium 142 mmol/L (137-145) 09/13/17 05:30 Potassium 3.6 mmol/L (3.5-5.1) 09/13/17 05:30 Chloride 107 mmol/L (98-107) 09/13/17 05:30 Carbon Dioxide 28 mmol/L (22-30) 09/13/17 05:30 Anion Gap 7 mmol/L 09/13/17 05:30 BUN 14 mg/dL (7-17) 09/13/17 05:30 Creatinine 0.85 mg/dL (0.52-1.04) 09/13/17 05:30 Est GFR (CKD-EPI)AfAm 75 (>60 ml/min/1.73 sqM) 09/13/17 05:30 Est GFR (CKD-EPI)NonAf 65 (>60 ml/min/1.73 sqM) 09/13/17 05:30 Glucose 149 mg/dL (74-99) H 09/13/17 05:30 POC Glucose (mg/dL) 136 mg/dL (75-99) H 09/13/17 20:48 POC Glu Solar System Designer ID Jose Diggs A 09/13/17 20:[address] Glu mg/dL 131 09/09/17 06:27 Hemoglobin A1c 6.2 % (4.0-6.0) H 09/09/17 06:27 Lactic Ac Sepsis Rflx Y 09/06/17 20:56 Plasma Lactic Acid Russel 0.8 mmol/L (0.7-2.0) 09/10/17 08:28 Calcium 7.9 mg/dL (8.4-10.2) L 09/13/17 05:30 Phosphorus 2.7 mg/dL (2.5-4.5) 09/13/17 05:30 Magnesium 2.0 mg/dL (1.6-2.3) 09/13/17 05:30 Total Bilirubin 0.1 mg/dL (0.2-1.3) L 09/07/17 05:57 AST 57 U/L (14-36) H 09/07/17 05:57 ALT 38 U/L (9-52) 09/07/17 05:57 Alkaline Phosphatase 87 U/L (38-126) 09/07/17 05:57 Total Creatine Kinase 1264 U/L (30-135) H 09/06/17 20:16 CK-MB (CK-2) 6.8 ng/mL (0.0-2.4) H* 09/06/17 20:16 CK-MB (CK-2) Rel Index 0.5 09/06/17 20:16 Troponin I <0.012 ng/mL (0.000-0.034) 09/06/17 20:16 Total Protein 5.1 g/dL (6.3-8.2) L 09/07/17 05:57 Albumin 2.6 g/dL (3.5-5.0) L 09/07/17 05:57 TSH 1.080 mIU/L (0.465-4.680) 09/10/17 06:58 Urine Color Yellow 09/06/17 22:14 Urine Appearance Turbid (Clear) H 09/06/17 22:14 Urine pH 6.5 (5.0-8.0) 09/06/17 22:14 Ur Specific [place] 1.012 (1.001-1.035) 09/06/17 22:14 Urine Protein 2+ (Negative) H 09/06/17 22:14 Urine Glucose (UA) Negative (Negative) 09/06/17 22:14 Urine Ketones Negative (Negative) 09/06/17 22:14 Urine Blood Moderate (Negative) H 09/06/17 22:14 Urine Nitrite Negative (Negative) 09/06/17 22:14 Urine Bilirubin Negative (Negative) 09/06/17 22:14 Urine Urobilinogen <2.0 mg/dL (<2.0) 09/06/17 22:14 Ur Leukocyte Esterase Large (Negative) H 09/06/17 22:14 Urine RBC 9 /hpf (0-5) H 09/06/17 22:14 Urine WBC >182 /hpf (0-5) H 09/06/17 22:14 Urine WBC Clumps Many /hpf (None) H 09/06/17 22:14 Ur Squamous Epith Cells 1 /hpf (0-4) 09/06/17 22:14 Urine Bacteria Many /hpf (None) H 09/06/17 22:14 Hyaline Casts 25 /lpf (0-2) H 09/06/17 22:14 Urine Mucus Rare /hpf (None) H 09/06/17 22:14 Microbiology 09/06/17 22:14 Urine,Catheterized Urine Culture - Final Escherichia coli Assessment and Plan (1) Severe sepsis with acute organ dysfunction due to Gram negative bacteria Current Visit: Yes Status: Acute Code(s): A41.50 - GRAM-NEGATIVE SEPSIS, UNSPECIFIED; R65.20 - SEVERE SEPSIS WITHOUT SEPTIC SHOCK SNOMED Code(s): 578992368457389 (2) Infection due to ESBL-producing Escherichia coli Narrative/Plan: 82-year-old female presents to Hospital with her family with altered mental status not functioning well for several days before coming to Hospital having fever and chills, granddaughter relates that the patient may have missed some of her medication shortly before she started becoming ill. It is related that it admission the patient had altered mental status which may not be a bit more improved but still is uncooperative and unpleasant. It admission she had acute renal failure that is improved her creatinine is now down to 1.89. Hyperkalemia has resolved. Has been seen by cardiology and they are following as needed. She did have evidence of ongoing fever and urine culture now has evidence of the ESBL E. coli and constantly antibiotic therapy was altered to meropenem because of her severe sepsis with acute organ dysfunction at admission with her renal failure. The discharge plan as far as antibiotics therapy will be made as she has improvement of her status there is a possibility that she will require outpatient intravenous antibiotic therapy. Nephrology is following no evidence of any need for renal replacement therapy at this time. Family is updated with her status, information about ESBL infection is provided. 09/12/2017 the patient has had some improvement. However now has atrial fibrillation with a rapid ventricular response which has caused some progression of her improvement. She however is comfortable and seems to be feeling better and has been able to eat her meals although not completely. She is afebrile and her leukocytosis has improved. Her acute renal failure is almost completely resolved. The overall plan for antibiotic therapy and its completion has not been finalized at this time may need outpatient intravenous antibiotic therapy. 09/11/2017 the patient is showing further improvement. Her A. fib is under better control. Renal failure has resolved. With her atrial fibrillation and amiodarone therapy it does limit antimicrobial therapy somewhat. Switching to Invanz 1 dose per day will likely be is utilized to complete the course of therapy for her significant sepsis from urinary system. A 14 day total course of therapy will be utilized Current Visit: Yes Status: Acute Code(s): A49.8 - OTHER BACTERIAL INFECTIONS OF UNSPECIFIED SITE; Z16.12 - EXTENDED SPECTRUM BETA LACTAMASE (ESBL ) RESISTANCE SNOMED Code(s): 951382029 (3) Acute renal failure Current Visit: Yes Status: Acute Code(s): N17.9 - ACUTE KIDNEY FAILURE, UNSPECIFIED SNOMED Code(s): 00649479 (4) Hyperkalemia Current Visit: Yes Status: Acute Code(s): E87.5 - HYPERKALEMIA SNOMED Code (s): 87996379 (5) Altered mental status Current Visit: Yes Status: Acute Code(s): R41.82 - ALTERED MENTAL STATUS, UNSPECIFIED SNOMED Code(s): 384540421
[2017-09-13 23:21] LABS: Glucose,Whole Blood 120 mg/dL (75-99)
[2017-09-14] MEDS: HYDROcodone/APAP 5-325MG 1 EACH TAB PO PRN (00:51)
[2017-09-14] MEDS: MEROPENEM 1 GM in SODIUM CHLORIDE 0.9% 100 ML IVPB SCH (04:15)
[2017-09-14] MEDS: glipiZIDE 10 MG TAB PO SCH (06:45)
[2017-09-14] MEDS: PANTOPRAZOLE 40 MG TABLET PO SCH (06:45)
[2017-09-14 07:01] LABS: Glucose,Whole Blood 120 mg/dL (75-99)
[2017-09-14 08:31] VITALS: PULSE 92
[2017-09-14] MEDS ORDERED: LIDOCAINE 2% INJ 20 MG/ML SQ ONE (08:56)
[2017-09-14] MEDS: INSULIN ASPART 100 UNIT/ML 1 ML 10 ML VIAL SQ SCH ×2 (09:22→12:07)
[2017-09-14] MEDS: ASPIRIN 81 MG PO SCH (09:24)
[2017-09-14] MEDS: APIXABAN 5 MG TAB PO SCH (09:24)
[2017-09-14] MEDS: METOPROLOL TARTRATE 50 MG TAB PO SCH (09:27)
[2017-09-14] MEDS: EZETIMIBE 10 MG TAB PO SCH (09:27)
[2017-09-14] MEDS: LINAGLIPTIN 5 MG TABLET PO SCH (09:27)
--- NOTE | 2017-09-14 09:29 | IR ---
PICC LINE PLACEMENT: HISTORY: Infection requiring long-term antibiotic therapy PROCEDURE: Ultrasound and fluoroscopic guidance of PICC line placement. COMPLICATIONS: None ANESTHESIA: 1. 1% Lidocaine locally. FINDINGS/TECHNIQUE: The procedure was explained to the patient. The risks, complications, benefits and alternatives were discussed and any questions were answered. Informed consent was obtained. The patient was placed supine on the fluoroscopic table and prepped and draped in the usual sterile [facility] ion. Utilizing a 21 gauge needle and sonographic and fluoroscopic guidance, access in the vein was achieved and there is placement of a 0.018 guidewire. The vein is patent. A 4-F sheath was placed o cheryl the guidewire. The guidewire and dilator were removed and a 4-F. PICC line was placed through th e sheath with the tip at the level of the SVC. The sheath was removed, the catheter was flushed and sutured into position. The patient was stable throughout the procedure and remained stable upon disc harge from the Department of Radiology. The vein puncture was patent under ultrasound. A [place] scale image was obtained to document patency of the vein punctured. All elements of the maximal barrier technique were utilized. FLUOROSCOPY TIME: 1.4 minutes, one image submitted IMPRESSION: Successful PICC line placement under ultrasound and fluoroscopic guidance.
[2017-09-14] MEDS ORDERED: FUROSEMIDE 40 MG TAB PO SCH (10:30)
--- NOTE | 2017-09-14 10:41 | P.DS ---
Providers Date of admission: 09/06/17 22:44 Expected date of discharge: 09/14/17 Attending physician: Phan Hartman Consults: 09/06/17 22:43 Consult Physician Stat Consulting Provider: Angus Parra Consult Reason/Comments: History of coronary artery disease, hypercalcemia Do you want consulting provider notified?: Yes Consult Physician Stat Consulting Provider: Negrito Palomares Consult Reason/Comments: Hyper Anemia, acute renal failure, leukocytosis, sepsis? Do you want consulting provider notified?: Yes Consult Physician Stat Consulting Provider: Neelam Underwood Consult Reason/Comments: Acute renal failure Do you want consulting provider notified?: Yes 09/09/17 11:53 Consult Physician Urgent Consulting Provider: Jus Meek Consult Reason/Comments: ESBL URINE Do you want consulting provider notified?: Yes 09/10/17 10:46 Consult Physician Routine Consulting Provider: She Quick Consult Reason/Comments: tachycardia Do you want consulting provider notified?: Yes 09/12/17 11:28 Consult Physician Routine Consulting Provider: Cardiology Abdelrahman Consult Reason/Comments: afib Do you want consulting provider notified?: Yes Primary care physician: Phan Hartman [facility] Course: 82-year-old female who presented to the emergency room with a chief complaint of worsening weakness. Patient's health has been on the decline over the last 3 weeks per the who states she was evaluated at her PCP office 3 weeks ago and has since become progressively more ill and weak. She has not been eating. Denies pain or discomfort. Denies chest pain or pressure. Denies shortness of breath. The patient has a history of coronary artery disease, COPD, diabetes mellitus, gastroesophageal reflux disease, hyperlipidemia, hypertension, myocardial infarction, anxiety, depression,and osteoarthritis. The patient was recently admitted in June 2017 to [facility] with NSTEMI, right lower lobe pneumonia, and exacerbation of COPD. During that hospitalization, cardiology recommended cardiac catheterization and patient declined. Chest x-ray: rotating exam. Cardiomegaly. Correlate for possible pulmonary artery hypertension. Difficult to exclude basilar airspace disease, edema, atelectasis or effusion. CT of the brain: negative for an acute process. ultrasound abdomen and bladder: negative for ascites. Incidental finding of small right pleural effusion. Correlate for hepatocellular disease, hepatic steatosis. gallbladder may be contracted. Spleen is not visualized. Laboratory data: WBC 17.0. Hemoglobin 10.5. Platelet count 394. sodium 133. Potassium 7.7. BUN 84. Creatinine 6.90. Glucose 54. D-dimer: 6.56 lactic acid: 3.8 on admission Urinalysis reveals: turbid yellow urine, 2+ proteinuria, moderate blood, large leukocyte esterase, RBC 9, WBC greater than 182, many WBC clumps, many bacteria , 25 hyaline cast, rare mucus. The patient was admitted to the hospital under the care of Dr. Montoya. Consultations were placed to nephrology, cardiology, and pulmonary for ICU management. The patient was started on aggressive IV fluid resuscitation. Her lasix was discontinued. She was hypotensive initially and required vasopressors for a short period of time. Her kidney function and potassium improved each day. She did not require dialysis. Her kidney function at the time of discharge is within normal limits. She is making adequate amounts of urine output. Her lasix has been restarted at her previous home dose of 40mg PO daily. She was tachycardic on 09/10/2017 and was refusing to take all her medications. Her heart rate was in the 160s, but regular per telemetry. She was given IV lopressor and transferred to selective care unit. The patients urine was positive for resistant e. coli. Patient received meropenem q [address] Meek, infectious disease, was on consult during hospitalization. He recommends Invanz 1 gram daily x 14 days at the time of discharge. The patient had a PICC line inserted on 2017. The patient had episodes of confusion and agitation during hospitalization, likely secondary to her sepsis, which has completely resolved. The patients mentation is back to her baseline. She did undergo CT of the brain which was negative for acute process. She has been participating with PT and OT and getting up to the chair each morning. She required indwelling urinary catheter for urinary retention. This has since been DC. She is voiding without difficulty. Bladder scan was competed and did not show evidence of urinary retention. The patient went into Afib with RVR on 09-11-2017. She was given an amio bolus and placed on an amio drip. She converted to SR shortly after amio was started. She has been in SR since that time with a controlled rate. She was started on Eliquis 5mg PO BID. Echocardiogram was completed revealing ejection fraction of 55-60%, trace to mild mitral regurgitation, mild tricuspid regurgitation, moderate pulmonary hypertension, and RVSP of 63.72 mmHg The patient is stable for discharge to [facility]. She is to follow up on an outpatient basis with Dr. Hartman after DC from [facility] along with additional consulting providers. DISCHARGE DIAGNOSIS: Sepsis, present on admission, secondary to urinary tract infection, improved at the time of discharge Urinary tract infection, present on admission, cultures reveal ESBL e. coli Acute renal failure, creatinine 6.9 on admission, baseline creatinine 0.8-1.0, suspect secondary to UTI and dehydration, resolved back to baseline Severe hyperkalemia, potassium 7.7 on admission, secondary to acute renal failure, resolved New onset atrial fibrillation with RVR, converted to SR with amiodarone Septic and metabolic encephalopathy, secondary to UTI and ARF, resolved at the time of discharge Elevated d-dimer, VQ scan shows low probability for PE Elevated lactic acid, peaked at 6.0, improved to 1.2 with aggressive fluid resuscitation, resolved Recent hospitalization in June 2017 for NSTEMI, right lower lobe pneumonia, and exacerbation of COPD, cardiology recommended catheterization at that time and patient declined Diabetes mellitus, type II, hemoglobin A1c 6.2% History of coronary artery disease Chronic obstructive pulmonary disease Essential hypertension Hyperlipidemia Anxiety, unspecified Depression, unspecified Morbid obesity: BMI 44.3 Hypokalemia, resolved Nurse practitioner note has been reviewed by physician. Signing provider agrees with the documented findings, assessment, and plan of care. Plan - Discharge Summary Discharge Rx Participant: No New Discharge Prescriptions: New Ertapenem [INVanz] 1 gm IVPB Q24H #14 bag amLODIPine [Norvasc] 10 mg PO DAILY tab Apixaban [Eliquis] 5 mg PO BID tab Continue Ezetimibe [Zetia] 10 mg PO DAILY Furosemide [Lasix] 40 mg PO DAILY glipiZIDE [Glucotrol] 20 mg PO BID Nitroglycerin Sl Tabs [Nitrostat] 0.4 mg SUBLINGUAL Q5M PRN PRN Reason: Chest Pain Atorvastatin Calcium [Lipitor] 40 mg PO HS #1 tab HYDROcodone/APAP 5-325MG [[place] 5-325] 1 tab PO Q6HR PRN PRN Reason: Pain Amitriptyline HCl [Elavil] 50 mg PO HS Metoprolol Tartrate [Lopressor] 50 mg PO BID #60 tab Gabapentin 400 mg PO DAILY Gabapentin 800 mg PO HS Albuterol Inhaler [Ventolin Hfa Inhaler] 2 puff INHALATION RT-Q4H PRN PRN Reason: Shortness Of Breath Linagliptin [Tradjenta] 5 mg PO DAILY Aspirin [Adult Low Dose Aspirin EC] 81 mg PO DAILY Discontinued Verapamil [Isoptin] 40 mg PO BID #60 tab Discharge Medication List Ezetimibe [Zetia] 10 mg PO DAILY 11/14/13 [History] Furosemide [Lasix] 40 mg PO DAILY 11/14/13 [History] glipiZIDE [Glucotrol] 20 mg PO BID 11/14/13 [History] Nitroglycerin Sl Tabs [Nitrostat] 0.4 mg SUBLINGUAL Q5M PRN 07/20/15 [History] Atorvastatin Calcium [Lipitor] 40 mg PO HS #1 tab 08/04/15 [Rx] HYDROcodone/APAP 5-325MG [[place] 5-325] 1 tab PO Q6HR PRN 06/13/16 [History] Amitriptyline HCl [Elavil] 50 mg PO HS 02/04/17 [History] Metoprolol Tartrate [Lopressor] 50 mg PO BID #60 tab 02/09/17 [Rx] Gabapentin 400 mg PO DAILY 06/18/17 [History] Gabapentin 800 mg PO HS 06/18/17 [History] Albuterol Inhaler [Ventolin Hfa Inhaler] 2 puff INHALATION RT-Q4H PRN 09/06/17 [ History] Aspirin [Adult Low Dose Aspirin EC] 81 mg PO DAILY 09/06/17 [History] Linagliptin [Tradjenta] 5 mg PO DAILY 09/06/17 [History] Apixaban [Eliquis] 5 mg PO BID tab 09/14/17 [Rx] Ertapenem [INVanz] 1 gm IVPB Q24H #14 bag 09/14/17 [Rx] amLODIPine [Norvasc] 10 mg PO DAILY tab 09/14/17 [Rx] Follow up Appointment(s)/Referral(s): Joaquin Dorado MD [STAFF PHYSICIAN] - 2 Weeks Neelam Underwood MD [STAFF PHYSICIAN] - 2 Weeks Phan Hartman Jr, DO [Primary Care Provider] - 1 Week (1 week after DC from [facility]) Jus Meek MD [STAFF PHYSICIAN] - 2 Weeks Activity/Diet/Wound Care/Special Instructions: Heart healthy diet, consistent carbohydrate diet Activity as tolerated Discharge Disposition: TRANSFER TO SNF/ECF
[2017-09-14] MEDS: amLODIPine 10 MG TAB PO SCH (11:23)
[2017-09-14 12:03] VITALS: BMI 41.2
[2017-09-14 12:27] LABS: Glucose,Whole Blood 167 mg/dL (75-99)
[2017-09-14 14:08] VITALS: BP 124/60; RESP 18; TEMP 96.8
--- NOTE | 2017-09-17 13:50 | CDI ---
Documentation Claification Form 2nd Request Last Revision, June 2017 Date: 09/17/2017 From: Swetha Rodriguez Admit Date: 09/06/2017 10:44:00 PM Patient Name: Concepcion Newberry Visit Number: [id number] Discharge Date: ATTENTION: The Clinical Documentation Specialists (CDI) and [facility] Coding Staff appreciate your assistance in clarifying documentation. Please respond to the clarification below the line at the bottom and electronically sign. The CDI & [facility] Coding staff will review the response and follow-up if needed. Please note: Queries are made part of the Legal Health Record. If you have any questions, please contact the author of this message via ITS. Dr. Neelam Underwood 82 yo female, admit with worsening weakness. Diagnosed with Sepsis secondary to UTI, Acute renal failure, Cr 6.9 on admit and severe hyperkalemia. History/Risk Factors: CAD, COPD, DM, GERD, Hyperlipidemia, Hypertension, OR, Anxiety, Depression, Osteoarthritis. Admit in w/NSTEMI, RLLL pneumonia & exacerbation of COPD. Clinical Indicators: Current BUN/CR/GFR: 14 / 0.85 / 65 Patients Baseline: Creatinine 0.8 - 1.0 Treatment: IV fluids & IV fluid boluses, IV antibiotics, IV Diuretics, Neb txs, IV Mag Sulfate. In order to capture the severity of condition, please clarify if the condition signifies: CKD Stage 1 (GFR > 90) CKD Stage 2 (GFR 60-89) CKD Stage 3 (GFR 30-59) CKD Stage 4 (GFR 15-29) CKD Stage 5 (GFR <15) ESRD Other, please specify Unable to determine Please continue to document in your progress notes and discharge summary in order to capture severity of illness and risk of mortality. Include clinical findings that support your diagnosis. MTDD
--- NOTE | 2017-09-18 16:01 | CDI ---
Last Revision, June 2017 Documentation Clarification Form Date: 09/18/17 From: Keyla Alex Richa Traylor, [employer] Tester between 8:30 am & 5 pm Sabi Admit Date: 09/06/2017 10:44:00 PM Patient Name: Concepcion Newberry Visit Number: [id number] Discharge Date: 09/14/17 ATTENTION: The Clinical Documentation Specialists (CDI) and [facility] Coding Staff appreciate your assistance in clarifying documentation. Please respond to the clarification below the line at the bottom and electronically sign. The CDI & [facility] Coding staff will review the response and follow-up if needed. Please note: Queries are made part of the Legal Health Record. If you have any questions, please contact the author of this message via ITS. Dr. Phan Hartman New onset of atrial fibrillation is documented in the 09/12, 09/13 progress notes and discharge summary. History/Risk Factors: sepsis w severe sepsis EKG/telemetry: Atrial fibrillation Treatment: Amiodarone infusion In your professional opinion, can you please clarify the type of atrial fibrillation, if known? Chronic/Permanent Paroxysmal Persistent Other, please specify Unable to determine Please continue to document in your progress notes and discharge summary in order to capture severity of illness and risk of mortality. Include clinical findings that support your diagnosis. MTDD
--- NOTE | 2017-09-19 10:28 | CDI ---
Last Revision, June 2017 Documentation Clarification Form Date: 09/06/2017 Resubmitted 09/19/2017 From: Swetha Rodriguez Admit Date: 09/06/2017 10:44:00 PM Patient Name: Concepcion Newberry Visit Number: [id number] Discharge Date: 09/14/2017 ATTENTION: The Clinical Documentation Specialists (CDI) and [facility] Coding Staff appreciate your assistance in clarifying documentation. Please respond to the clarification below the line at the bottom and electronically sign. The CDI & [facility] Coding staff will review the response and follow-up if needed. Please note: Queries are made part of the Legal Health Record. If you have any questions, please contact the author of this message via ITS. Dr. Neelam Underwood: 82 yo female, admit with worsening weakness. Diagnosed with Sepsis secondary to UTI, Acute renal failure, Cr 6.9 on admit and severe hyperkalemia. History/Risk Factors: CAD, COPD, DM, GERD, Hyperlipidemia, Hypertension, [place], Anxiety, Depression, Osteoarthritis. Admit in w/NSTEMI, RLLL pneumonia & exacerbation of COPD. Clinical Indicators: Current BUN/CR/GFR: 14 / 0.85 / 65 Patients Baseline: Creatinine 0.8 - 1.0 Treatment: IV fluids & IV fluid boluses, IV antibiotics, IV Diuretics, Neb txs, IV Mag Sulfate. In order to capture the severity of condition, please clarify if the condition signifies: CKD Stage 1 (GFR > 90) CKD Stage 2 (GFR 60-89) CKD Stage 3 (GFR 30-59) CKD Stage 4 (GFR 15-29) CKD Stage 5 (GFR <15) ESRD Other, please specify Unable to determine Please continue to document in your progress notes and discharge summary in order to capture severity of illness and risk of mortality. Include clinical findings that support your diagnosis. Unable to determine. MTDD
== END 2017-09-14 15:11 | DRG 871 ==
LOC: EC 18:44 → 6ICU 22:44 → 6SEL 09-08 10:10 → 3SUR 09-09 16:29 → 6SEL 09-10 10:52
PROVIDERS: ADMIT Family Medicine; ATTEND Family Medicine
PROC: 02HV33Z Insertion of Infusion Device into Superior Vena Cava, Percutaneous Approach (ICD-10-PCS; principal; 2017-09-14 08:40)
DX: A41.51 Sepsis due to Escherichia coli [E. coli] (principal); N17.0 Acute kidney failure with tubular necrosis; G93.41 Metabolic encephalopathy; E11.22 Type 2 diabetes mellitus with diabetic chronic kidney disease; E87.2 Acidosis; E66.01 Morbid (severe) obesity due to excess calories; I08.1 Rheumatic disorders of both mitral and tricuspid valves; E87.5 Hyperkalemia; E11.42 Type 2 diabetes mellitus with diabetic polyneuropathy; E86.0 Dehydration; I48.0 Paroxysmal atrial fibrillation; Z68.41 Body mass index [BMI] 40.0-44.9, adult; N39.0 Urinary tract infection, site not specified; I27.20 Pulmonary hypertension, unspecified; J44.9 Chronic obstructive pulmonary disease, unspecified; N13.9 Obstructive and reflux uropathy, unspecified; R65.20 Severe sepsis without septic shock; I13.10 Hypertensive heart and chronic kidney disease without heart failure, with stage 1 through stage 4 chronic kidney disease, or unspecified chronic kidney disease; E78.5 Hyperlipidemia, unspecified; F41.9 Anxiety disorder, unspecified; F32.9 Major depressive disorder, single episode, unspecified; I25.10 Atherosclerotic heart disease of native coronary artery without angina pectoris; K21.9 Gastro-esophageal reflux disease without esophagitis; I25.2 Old myocardial infarction; Z16.12 Extended spectrum beta lactamase (ESBL) resistance; B96.1 Klebsiella pneumoniae [K. pneumoniae] as the cause of diseases classified elsewhere; E87.6 Hypokalemia; N18.9 Chronic kidney disease, unspecified; K76.0 Fatty (change of) liver, not elsewhere classified; K44.9 Diaphragmatic hernia without obstruction or gangrene; G89.29 Other chronic pain; M19.91 Primary osteoarthritis, unspecified site; M54.5 Low back pain; M54.2 Cervicalgia; H26.9 Unspecified cataract; Z79.82 Long term (current) use of aspirin; Z79.899 Other long term (current) drug therapy; Z87.440 Personal history of urinary (tract) infections; Z98.1 Arthrodesis status; Z96.653 Presence of artificial knee joint, bilateral; Z87.81 Personal history of (healed) traumatic fracture; Z87.891 Personal history of nicotine dependence; Z87.01 Personal history of pneumonia (recurrent); Z88.0 Allergy status to penicillin
CPT/HCPCS: 36415; 36569; 51702; 70450; 71045; 71046; 73521; 76705; 76770; 76937; 77001; 78582; 80048; 80053; 81001; 82550; 82553; 83036; 83605; 83735; 84100; 84132; 84443; 84484; 85025; 85379; 85610; 85730; 87077; 87086; 87186; 93005; 93306; 94640; 94760; 96361; 96365; 96366; 96367; 96375; 96376; 99291

== ENCOUNTER → 2017-12-11 | Outpatient (CLI) | payer MEDICARE ==
--- NOTE | 2017-12-11 18:44 | MR ---
EXAMINATION TYPE: MR lumbar spine wo/w con DATE OF EXAM: 12/11/2017 COMPARISON: 03/21/2016 HISTORY: LBP, BLE radic x 7 mos, hx surgery 2011 Contrast: 10 mL Gadavist TECHNIQUE: T1 and T2 axial and sagittal images of the lumbar spine are submitted. FINDINGS: There is no abnormal signal seen within the visualized spinal cord or paraspinal soft tissu es. Complex 3.5 cm right ovarian mass. Her graft there is degenerative disc disease and sagittal disc bulging throughout the lower thoracic spine. At T12-L1 there is circumferential disc bulging and facet arthropathy with moderate degenerative disc disease. Mild bilateral foraminal encroachment. No Canal stenosis. At L1-2 there is degenerative disc disease with facet arthropathy and ligamentum flavum hypertrophy. There is mild bilateral foraminal encroachment and mild circumferential disc bulging. No canal stenos is At L2-3 there is advanced facet arthropathy. There is circumferential disc bulging with mild bilatera l foraminal encroachment but no canal stenosis. At L3-4 there is postsurgical change which limits assessment due to severe metallic artifact. No obvi ous canal stenosis or foraminal encroachment and sagittal images. No definite disc bulging seen on to day's exam. At L4-5 there is postsurgical change with minimal anterolisthesis. Neural foramina remain patent. Ass essment of the spinal canal limited by artifact. No obvious canal stenosis. At L5-S1 there is postsurgical change with no evidence of canal stenosis or disc herniation. Neural f oramina remain patent. Enhancement posterior to the areas of laminectomy are most typical postsurgical scar. IMPRESSION: 1. Postsurgical change with no diagnostic evidence of canal stenosis or foraminal encroachment at the surgical levels. Minimal anterolisthesis L4 on L5 is stable. 2. Multilevel degenerative disc disease involving remaining thoracolumbar spine was disc bulging as d iscussed above but no diagnostic evidence of focal herniation. Multilevel mild foraminal encroachment . 3. 3.5 similar complex right adnexal cystic mass. Recommend follow-up pelvic ultrasound. 4. There is clumping of the nerve roots which can be associated with arachnoiditis. Correlate clinica lly.
== END ==
LOC: RADMRIMAIN 14:44
PROVIDERS: ATTEND Family Medicine
DX: M43.16 Spondylolisthesis, lumbar region (principal); M51.36 Other intervertebral disc degeneration, lumbar region
CPT/HCPCS: 82565; 84520; 72158; 36415; A9581

== ENCOUNTER 2018-02-20 18:44 | Observation (INO) | payer MEDICARE ==
[2018-02-20] MEDS ORDERED: IPRATROPIUM 0.5 MG/2.5 ML NEBU INHALATION STA (18:58)
[2018-02-20] MEDS ORDERED: ALBUTEROL NEBULIZED 2.5 MG/3 ML INHALATION STA (18:58)
[2018-02-20 19:49] LABS: Basophils % (A) 0 %; Eosinophils # (A) 0.5 k/uL (0-0.7); Eosinophils % (A) 4 %; HCT 39.5 % (34.0-46.0); Hypochromasia Slight; Lymphocytes % (A) 26 %; MCH 25.4 pg (25.0-35.0); MCHC 30.4 g/dL (31.0-37.0); MCV 83.7 fL (80.0-100.0); Mean Platelet Volume 6.6; Monocytes # (A) 0.8 k/uL (0-1.0); Monocytes % (A) 7 %; Neutrophils # (A) 7.1 k/uL (1.3-7.7); Neutrophils % (A) 62 %; Platelet Count 415 k/uL (150-450); RBC 4.72 m/uL (3.80-5.40); RDW 15.3 % (11.5-15.5); WBC 11.6 k/uL (3.8-10.6)
[2018-02-20 19:57] LABS: Partial Thromboplastin Time 24.3 sec (22.0-30.0); Prothrombin Time 10.2 sec (9.0-12.0)
[2018-02-20 19:58] LABS: Albumin 4.1 g/dL (3.5-5.0); Calcium 9.6 mg/dL (8.4-10.2); Potassium 4.9 mmol/L (3.5-5.1); Total Bilirubin 0.3 mg/dL (0.2-1.3); Total Protein 6.9 g/dL (6.3-8.2)
[2018-02-20 20:00] LABS: Creatine Kinase 42 U/L (30-135)
--- NOTE | 2018-02-20 20:12 | ED ---
General Adult HPI - General Chief complaint: Shortness of Breath Stated complaint: Diff Breathing Time Seen by Provider: 02/20/18 18:57 Source: patient, family, RN notes reviewed, old records reviewed Mode of arrival: wheelchair Limitations: no limitations - History of Present Illness Initial comments: This is an 82-year-old female the ER for evaluation. Patient does say for evaluation regarding shortness of breath. Significant cough and congestion cannot catch her breath. Patient is calm. Lungs medical history but includes COPD and heart disease. Patient states she feels just like prior hospitalization where she had a prolonged hospitalization with unconsciousness. Patient's is very concerned the patient is acting similar to prior. Again no recent travel history or sick contacts the patient knows, no fevers - Related Data Home Medications Medication Instructions Recorded Confirmed Ezetimibe [Zetia] 10 mg PO DAILY 11/14/13 02/20/18 Furosemide [Lasix] 40 mg PO DAILY 11/14/13 02/20/18 glipiZIDE [Glucotrol] 20 mg PO BID 11/14/13 02/20/18 Nitroglycerin Sl Tabs [Nitrostat] 0.4 mg SUBLINGUAL Q5M PRN 07/20/15 02/20/18 HYDROcodone/APAP 5-325MG [[place] 1 tab PO Q6HR PRN 06/13/16 02/20/18 5-325] Gabapentin 400 mg PO DAILY 06/18/17 02/20/18 Gabapentin 800 mg PO HS 06/18/17 02/20/18 Aspirin [Adult Low Dose Aspirin EC] 81 mg PO DAILY 09/06/17 02/20/18 Albuterol Sulfate [Proventil Hfa] 1 - 2 puff INHALATION Q6HR PRN 02/20/18 Beclomethasone Dip 80 Mcg/Puff 1 puff INHALATION BID 02/20/18 02/20/18 [Qvar 80 mcg] Lisinopril [Zestril] 5 mg PO BID 02/20/18 02/20/18 Potassium Chloride [Klor-Con 10] 10 meq PO DAILY 02/20/18 02/20/18 metFORMIN HCL 1,000 mg PO BID 02/20/18 02/20/18 sitaGLIPtin PHOSPHATE [Januvia] 100 mg PO DAILY 02/20/18 02/20/18 Previous Rx's Medication Instructions Recorded Atorvastatin Calcium [Lipitor] 40 mg PO HS #1 tab 08/04/15 Metoprolol Tartrate [Lopressor] 50 mg PO BID #60 tab 02/09/17 Allergies Allergy/AdvReac Type Severity Reaction Status Date / Time Penicillins Allergy Rash/Hives Verified 02/20/18 19:08 Review of Systems ROS Statement: Those systems with pertinent positive or pertinent negative responses have been documented in the HPI. ROS Other: All systems not noted in ROS Statement are negative. Past Medical History Past Medical History: Coronary Artery Disease (CAD), Chest Pain / Angina, COPD, Diabetes Mellitus, GERD/Reflux, Hyperlipidemia, Hypertension, Myocardial Infarction ([place]), Osteoarthritis (OA) Additional Past Medical History / Comment(s): 06/18/1712/18/17 Admitted to [facility] with NSTEMI, R lower lobe pneumonia and exacerbation of her COPD. Pt refused heart catheterization. Other hx; NIDDM type II, bilateral peripheral neuropathy in feet, hiatal hernia, arthritis multiple joints, chronic low back pain, lower leg edema, cataracts bilaterally. Last Myocardial Infarction Date:: 06/17/18 History of Any Multi-Drug Resistant Organisms: ESBL Date of last positivie culture/infection: 09/06/17 MDRO Source:: ESBL URINE Past Surgical History: Back Surgery, Joint Replacement, Orthopedic Surgery Additional Past Surgical History / Comment(s): 07/29/15 lumbar laminectomy decompression fusion L3-4 and L5-S1 with cell saver, lumbar instrumentation removal L4-5, L4-L5 laminectomy, ZULY KNEE REPLACEMENTS,ORIF RT ANKLE, CERVICAL FUSION, zuly rotator cuff repair, surgery to zuly wrist carpal tunnel releases, pain procedures, L breast lumpectomy-benign, bilateral legs varicose vein stripping. Past Anesthesia/Blood Transfusion Reactions: No Reported Reaction Additional Past Anesthesia/Blood Transfusion Reaction / Comment(s): Pt states she has never received blood. Past Psychological History: Anxiety, Depression Smoking Status: Former smoker Past Alcohol Use History: None Reported Past Drug Use History: None Reported - Past Family History Father Brother(s) Family Medical History: Cancer Mother Sister(s) Family Medical History: Cancer Father Family Medical History: Myocardial Infarction ([place]) Additional Family Medical History / Comment(s): Father at 40 of a [place]. Mother Family Medical History: CVA/TIA Additional Family Medical History / Comment(s): Mother had a CVA General Exam Limitations: no limitations General appearance: alert, in no apparent distress, in distress Head exam: Present: atraumatic, normocephalic, normal inspection Eye exam: Present: normal appearance, PERRL, EOMI. Absent: scleral icterus, conjunctival injection, periorbital swelling ENT exam: Present: normal exam, mucous membranes moist Neck exam: Present: normal inspection. Absent: tenderness, meningismus, lymphadenopathy Respiratory exam: Present: respiratory distress, wheezes, accessory muscle use, decreased breath sounds, prolonged expiratory. Absent: rales, rhonchi, stridor Cardiovascular Exam: Present: regular rate, normal rhythm, normal heart sounds. Absent: systolic murmur, diastolic murmur, rubs, gallop, clicks GI/Abdominal exam: Present: soft, normal bowel sounds. Absent: distended, tenderness, guarding, rebound, rigid Extremities exam: Present: normal inspection, full ROM, normal capillary refill. Absent: tenderness, pedal edema, joint swelling, calf tenderness Back exam: Present: normal inspection Neurological exam: Present: alert, oriented X3, CN II-XII intact Psychiatric exam: Present: normal affect, normal mood Skin exam: Present: warm, dry, intact, normal color. Absent: rash Course Vital Signs 02/20/18 02/20/18 02/20/18 18:52 19:21 19:59 Temperature 98.7 F Pulse Rate 73 80 83 Respiratory 24 19 Rate Blood Pressure 186/76 169/72 O2 Sat by Pulse 96 98 Oximetry 02/20/18 20:00 Temperature Pulse Rate 78 Respiratory Rate Blood Pressure O2 Sat by Pulse Oximetry - Reevaluation(s) Reevaluation #1: 02/20/18 21:16 Patient had multiple significant concerning factors, feeling weak. Patient family spoke with at length, very concerned that this was essay rale patient was going out last admitted to the hospital Reevaluation #2: 02/20/18 21:16 Medical record is reviewed as well as prior hospitalization EKG Findings - EKG Comments: EKG Findings:: EKG shows sinus rhythm rate of 79, NE 160, QRS 60, QTc 424 Medical Decision Making - Medical Decision Making 82-year-old female the ER with shortness of breath, and inability to catch her breath. Patient has significant COPD exacerbation will admit for continued pulse ox monitoring breathing treatments. - Lab Data Result diagrams: 02/20/18 18:58 02/20/18 18:58 Lab Results 02/20/18 02/20/18 02/20/18 Range/Units 18:58 18:58 18:58 WBC 11.6 H (3.8-10.6) k/uL RBC 4.72 (3.80-5.40) m/uL Hgb 12.0 (11.4-16.0) gm/dL Hct 39.5 (34.0-46.0) % MCV 83.7 (80.0-100.0) fL MCH 25.4 (25.0-35.0) pg MCHC 30.4 L (31.0-37.0) g/dL RDW 15.3 (11.5-15.5) % Plt Count 415 (150-450) k/uL Neutrophils % 62 % Lymphocytes % 26 % Monocytes % 7 % Eosinophils % 4 % Basophils % 0 % Neutrophils # 7.1 (1.3-7.7) k/uL Lymphocytes # 3.0 (1.0-4.8) k/uL Monocytes # 0.8 (0-1.0) k/uL Eosinophils # 0.5 (0-0.7) k/uL Basophils # 0.0 (0-0.2) k/uL Hypochromasia Slight PT (9.0-12.0) sec INR (<1.2) APTT (22.0-30.0) sec Sodium 138 (137-145) mmol/L Potassium 4.9 (3.5-5.1) mmol/L Chloride 102 (98-107) mmol/L Carbon Dioxide 24 (22-30) mmol/L Anion Gap 12 mmol/L BUN 28 H (7-17) mg/dL Creatinine 1.10 H (0.52-1.04) mg/dL Est GFR (CKD-EPI)AfAm 55 (>60 ml/min/1.73 sqM) Est GFR (CKD-EPI)NonAf 48 (>60 ml/min/1.73 sqM) Glucose 195 H (74-99) mg/dL Calcium 9.6 (8.4-10.2) mg/dL Total Bilirubin 0.3 (0.2-1.3) mg/dL AST 24 (14-36) U/L ALT 36 (9-52) U/L Alkaline Phosphatase 72 (38-126) U/L Total Creatine Kinase 42 (30-135) U/L CK-MB (CK-2) 1.0 (0.0-2.4) ng/mL CK-MB (CK-2) Rel Index 2.4 Troponin I <0.012 (0.000-0.034) ng/mL Total Protein 6.9 (6.3-8.2) g/dL Albumin 4.1 (3.5-5.0) g/dL 02/20/18 Range/Units 18:58 WBC (3.8-10.6) k/uL RBC (3.80-5.40) m/uL Hgb (11.4-16.0) gm/dL Hct (34.0-46.0) % MCV (80.0-100.0) fL MCH (25.0-35.0) pg MCHC (31.0-37.0) g/dL RDW (11.5-15.5) % Plt Count (150-450) k/uL Neutrophils % % Lymphocytes % % Monocytes % % Eosinophils % % Basophils % % Neutrophils # (1.3-7.7) k/uL Lymphocytes # (1.0-4.8) k/uL Monocytes # (0-1.0) k/uL Eosinophils # (0-0.7) k/uL Basophils # (0-0.2) k/uL Hypochromasia PT 10.2 (9.0-12.0) sec INR 1.0 (<1.2) APTT 24.3 (22.0-30.0) sec Sodium (137-145) mmol/L Potassium (3.5-5.1) mmol/L Chloride (98-107) mmol/L Carbon Dioxide (22-30) mmol/L Anion Gap mmol/L BUN (7-17) mg/dL Creatinine (0.52-1.04) mg/dL Est GFR (CKD-EPI)AfAm (>60 ml/min/1.73 sqM) Est GFR (CKD-EPI)NonAf (>60 ml/min/1.73 sqM) Glucose (74-99) mg/dL Calcium (8.4-10.2) mg/dL Total Bilirubin (0.2-1.3) mg/dL AST (14-36) U/L ALT (9-52) U/L Alkaline Phosphatase (38-126) U/L Total Creatine Kinase (30-135) U/L CK-MB (CK-2) (0.0-2.4) ng/mL CK-MB (CK-2) Rel Index Troponin I (0.000-0.034) ng/mL Total Protein (6.3-8.2) g/dL Albumin (3.5-5.0) g/dL - Radiology Data Radiology results: report reviewed (Chest x-rays negative for acute disease), image reviewed Disposition Clinical Impression: Chest pain, Hypoxia, COPD exacerbation, Weakness Disposition: ADMITTED IP TO THIS HOSP Condition: Fair Is patient prescribed a controlled substance at d/c from ED?: No Referrals: Phan Hartman Jr, DO [Primary Care Provider] - 1-2 days
[2018-02-20 20:13] LABS: Troponin I <0.012 ng/mL (0.000-0.034)
[2018-02-20] MEDS ORDERED: methylPREDNISolone SOD SUCCI 125 MG/2 ML VIAL IV STA (21:14)
--- NOTE | 2018-02-20 21:33 | XR ---
EXAMINATION: XR chest 2V DATE AND TIME: 02/20/2018 8:58 PM CLINICAL INDICATION: difficulty breathing TECHNIQUE: AP and lateral COMPARISON: 09/08/2017 FINDINGS: The lungs are predominantly clear, but on the lateral radiograph there is increased density over the lower spine in peribronchial position. Finding can correlate with a clinical diagnosis of early left lower lobe bronchopneumonia. Follow-up radiographs in 6 weeks can be used to prove resolution. The pleural spaces are negative. The cardiac silhouette is mild moderately enlarged, unchanged. The remainder of the mediastinal silhouette is unremarkable. The skeletal structures and soft tissues are negative for acute findings. IMPRESSION: Suspect partial left lower lobe pneumonia.
[2018-02-20] MEDS ORDERED: LEVOFLOXACIN 750MG-D5W PMX 750 MG in DEXTROSE/WATER 1 150ML.BAG IVPB STA (21:40)
[2018-02-20] MEDS ORDERED: CEFEPIME 2 GM in SODIUM CHLORIDE 0.9% 50 ML IVPB ONE (22:00)
[2018-02-20 23:13] VITALS: BMI 44.2
[2018-02-21] MEDS ORDERED: HYDROcodone/APAP 5-325MG 1 EACH TAB PO PRN (00:05)
[2018-02-21] MEDS ORDERED: GABAPENTIN 400 MG CAP PO SCH ×2 (00:15→09:00)
[2018-02-21] MEDS ORDERED: ATORVASTATIN 40 MG TAB PO SCH (00:15)
[2018-02-21] MEDS: methylPREDNISolone SOD SUCCI 125 MG/2 ML VIAL IV SCH ×3 (00:28→12:22)
[2018-02-21] MEDS ORDERED: NITROGLYCERIN SL TABS 0.4 MG TAB SUBLINGUAL PRN (07:54)
[2018-02-21 08:03] VITALS: BP 131/79; PULSE 84; RESP 18; TEMP 98
[2018-02-21 08:36] LABS: Glucose,Whole Blood 266 mg/dL (75-99)
[2018-02-21] MEDS: INSULIN ASPART 100 UNIT/ML 1 ML 10 ML VIAL SQ SCH ×2 (08:45→13:52)
[2018-02-21] MEDS: IPRATROPIUM-ALBUTEROL 3 ML NEB INHALATION SCH ×2 (08:58→12:11)
[2018-02-21] MEDS ORDERED: ENOXAPARIN 40 MG/0.4 ML SYRINGE SQ SCH (09:00)
[2018-02-21] MEDS ORDERED: METOPROLOL TARTRATE 50 MG TAB PO SCH (09:00)
[2018-02-21] MEDS ORDERED: LISINOPRIL 5 MG TAB PO SCH (09:00)
[2018-02-21] MEDS ORDERED: EZETIMIBE 10 MG TAB PO SCH (09:00)
[2018-02-21] MEDS ORDERED: glipiZIDE 10 MG TAB PO SCH (09:00)
[2018-02-21] MEDS ORDERED: metFORMIN 500 MG TAB PO SCH (09:00)
[2018-02-21] MEDS ORDERED: ASPIRIN 81 MG PO SCH (09:00)
[2018-02-21 09:36] LABS: Basophils % (A) 0 %; Eosinophils % (A) 0 %; HCT 37.7 % (34.0-46.0); HGB 11.3 gm/dL (11.4-16.0); Hypochromasia Moderate; Lymphocytes # (A) 1.8 k/uL (1.0-4.8); Lymphocytes % (A) 24 %; MCH 25.8 pg (25.0-35.0); Mean Platelet Volume 6.7; Monocytes # (A) 0.3 k/uL (0-1.0); Monocytes % (A) 4 %; Neutrophils # (A) 5.7 k/uL (1.3-7.7); Neutrophils % (A) 72 %; Platelet Count 367 k/uL (150-450); RBC 4.39 m/uL (3.80-5.40); RDW 15.2 % (11.5-15.5); WBC 7.8 k/uL (3.8-10.6)
[2018-02-21 09:51] LABS: Calcium 9.5 mg/dL (8.4-10.2); Potassium 5.5 mmol/L (3.5-5.1)
[2018-02-21] MEDS ORDERED: CEFEPIME 1 GM in SODIUM CHLORIDE 0.9% 50 ML IVPB SCH (10:00)
[2018-02-21 12:15] LABS: Glucose,Whole Blood 200 mg/dL (75-99)
[2018-02-21] MEDS ORDERED: FUROSEMIDE 40 MG TAB PO STA (13:39)
[2018-02-21 19:12] LABS: Hemoglobin A1C 6.2 % (4.0-6.0)
[2018-02-21] MEDS ORDERED: LEVOFLOXACIN 750MG-D5W PMX 750 MG in DEXTROSE/WATER 1 150ML.BAG IVPB SCH (22:00)
[2018-02-22] MEDS ORDERED: PANTOPRAZOLE 40 MG TABLET PO SCH (07:30)
--- NOTE | 2018-02-22 13:20 | P.DS ---
Providers Date of admission: 02/20/18 21:14 Expected date of discharge: 02/21/18 Attending physician: Phan Hartman Primary care physician: [facility] Course: This document serves as H&P and discharge summary 82-year-old female who presented to the emergency room with a chief complaint of shortness of breath and nonproductive cough. Patient denied sputum production. Denied fever or chills. Denied chest pain or pressure. Patient had mild leukocytosis upon admission at 11.6. Repeat is 7.8. She has been afebrile. Vital signs have been stable. Patient was started on IV solumedral and antibiotics in the emergency room. Patient was seen this morning by Dr. Montoya and deemed stable for discharge home. The patient's potassium was 4.9 on admission with a repeat of 5.5. The patient was instructed to discontinue her potassium supplement temporarily until evaluated by Dr. Hartman. She is to have a BMP drawn in 2 days. Prescriptions were sent to the patient' s preferred pharmacy for Levaquin and a prednisone taper. DISCHARGE DIAGNOSIS: Acute exacerbation of chronic obstructive pulmonary disease Possible early left lower lobe pneumonia per chest x-ray, patient clinically without s/s of pneumonia, placed on empiric antibiotics prophylactically due to comorbidities Hyperkalemia, patient instructed to discontinue potassium supplementation temporarily Diabetes mellitus, type II History of coronary artery disease Hypertension Hyperlipidemia Morbid obesity: BMI 44.2 Nurse practitioner note has been reviewed by physician. Signing provider agrees with the documented findings, assessment, and plan of care. Patient Condition at Discharge: Stable Plan - Discharge Summary New Discharge Prescriptions: New Levofloxacin [Levaquin] 750 mg PO DAILY 5 Days #5 tab predniSONE See Taper PO DIRECTED #55 tab Continue Ezetimibe [Zetia] 10 mg PO DAILY Furosemide [Lasix] 40 mg PO DAILY glipiZIDE [Glucotrol] 20 mg PO BID Nitroglycerin Sl Tabs [Nitrostat] 0.4 mg SUBLINGUAL Q5M PRN PRN Reason: Chest Pain Atorvastatin Calcium [Lipitor] 40 mg PO HS #1 tab HYDROcodone/APAP 5-325MG [[place] 5-325] 1 tab PO Q6HR PRN PRN Reason: Pain Metoprolol Tartrate [Lopressor] 50 mg PO BID #60 tab Gabapentin 400 mg PO DAILY Gabapentin 800 mg PO HS Aspirin [Adult Low Dose Aspirin EC] 81 mg PO DAILY Beclomethasone Dip 80 Mcg/Puff [Qvar 80 mcg] 1 puff INHALATION BID Albuterol Sulfate [Proventil Hfa] 1 - 2 puff INHALATION Q6HR PRN PRN Reason: Shortness Of Breath sitaGLIPtin PHOSPHATE [Januvia] 100 mg PO DAILY metFORMIN HCL 1,000 mg PO BID Lisinopril [Zestril] 5 mg PO BID Discontinued Potassium Chloride [Klor-Con 10] 10 meq PO DAILY Discharge Medication List Ezetimibe [Zetia] 10 mg PO DAILY 11/14/13 [History] Furosemide [Lasix] 40 mg PO DAILY 11/14/13 [History] glipiZIDE [Glucotrol] 20 mg PO BID 11/14/13 [History] Nitroglycerin Sl Tabs [Nitrostat] 0.4 mg SUBLINGUAL Q5M PRN 07/20/15 [History] Atorvastatin Calcium [Lipitor] 40 mg PO HS #1 tab 08/04/15 [Rx] HYDROcodone/APAP 5-325MG [[place] 5-325] 1 tab PO Q6HR PRN 06/13/16 [History] Metoprolol Tartrate [Lopressor] 50 mg PO BID #60 tab 02/09/17 [Rx] Gabapentin 400 mg PO DAILY 06/18/17 [History] Gabapentin 800 mg PO HS 06/18/17 [History] Aspirin [Adult Low Dose Aspirin EC] 81 mg PO DAILY 09/06/17 [History] Albuterol Sulfate [Proventil Hfa] 1 - 2 puff INHALATION Q6HR PRN 02/20/18 [ History] Beclomethasone Dip 80 Mcg/Puff [Qvar 80 mcg] 1 puff INHALATION BID 02/20/18 [ History] Lisinopril [Zestril] 5 mg PO BID 02/20/18 [History] metFORMIN HCL 1,000 mg PO BID 02/20/18 [History] sitaGLIPtin PHOSPHATE [Januvia] 100 mg PO DAILY 02/20/18 [History] Levofloxacin [Levaquin] 750 mg PO DAILY 5 Days #5 tab 02/21/18 [Rx] predniSONE See Taper PO DIRECTED #55 tab 02/21/18 [Rx] Follow up Appointment(s)/Referral(s): Phan Hartman Jr, DO [Primary Care Provider] - 3 Days Ambulatory/Diagnostic Orders: Basic Metabolic Panel [LAB.AMB] Time Frame: 2 Days, Location: None Selected Patient Instructions/Handouts: COPD (Chronic Obstructive Pulmonary Disease) ( GEN) Activity/Diet/Wound Care/Special Instructions: Discontinue potassium supplement until you are re-evaluated by Dr. Hartman at your follow up appointment Avoid foods high in potassium until you have your labs re-drawn Discharge Disposition: HOME SELF-CARE
[2018-02-22] MEDS ORDERED: LEVOFLOXACIN 750MG-D5W PMX 750 MG in DEXTROSE/WATER 1 150ML.BAG IVPB SCH (21:00)
== END 2018-02-21 14:10 | disposition home or self-care (01) ==
LOC: EC 18:44 → 3OBS 21:14
PROVIDERS: ADMIT Family Medicine; ATTEND Family Medicine
DX: J44.1 Chronic obstructive pulmonary disease with (acute) exacerbation (principal); D72.829 Elevated white blood cell count, unspecified; E87.5 Hyperkalemia; I25.10 Atherosclerotic heart disease of native coronary artery without angina pectoris; E11.42 Type 2 diabetes mellitus with diabetic polyneuropathy; G89.29 Other chronic pain; M54.5 Low back pain; K44.9 Diaphragmatic hernia without obstruction or gangrene; H26.9 Unspecified cataract; M15.9 Polyosteoarthritis, unspecified; Z68.41 Body mass index [BMI] 40.0-44.9, adult; E66.01 Morbid (severe) obesity due to excess calories; F41.9 Anxiety disorder, unspecified; F32.9 Major depressive disorder, single episode, unspecified; Z79.84 Long term (current) use of oral hypoglycemic drugs; Z79.82 Long term (current) use of aspirin; Z79.899 Other long term (current) drug therapy; Z79.51 Long term (current) use of inhaled steroids; Z88.0 Allergy status to penicillin; Z87.891 Personal history of nicotine dependence; I25.2 Old myocardial infarction; I10 Essential (primary) hypertension; E78.5 Hyperlipidemia, unspecified; K21.9 Gastro-esophageal reflux disease without esophagitis; Z98.1 Arthrodesis status; Z96.653 Presence of artificial knee joint, bilateral; Z87.01 Personal history of pneumonia (recurrent); Z82.49 Family history of ischemic heart disease and other diseases of the circulatory system; Z82.3 Family history of stroke
CPT/HCPCS: 99285 ×2; 96375 ×2; 96365; 96372; 96376; 36415; 94640 ×2; 93005; 80053; 80048; 82550; 82553; 84484; 85025 ×2; 85610; 85730; 83036; 71046; G0378 ×2; J2930 ×2; J0692 ×2; J1650; J1956

== ENCOUNTER → 2018-02-25 | Outpatient (CLI) | payer MEDICARE ==
[2018-02-25 10:59] LABS: Calcium 8.7 mg/dL (8.4-10.2); Potassium 4.6 mmol/L (3.5-5.1)
--- NOTE | 2018-02-25 16:16 | XR ---
Cervical spine HISTORY: Neck pain 5 views of the cervical spine Correlation to prior plain film 12/06/2015 The postoperative changes are stable. There are post posterior fusion changes at C3-C5 as well as ant erior cervical fusion and discectomy changes at C5-C6. Minimal anterolisthesis grade 1 C2-3 as on dane or exam, there is loss of disc height as well as spondylosis at C2-3, C6-7. There are vascular calcif ications within the distribution of the carotid arteries. No significant foraminal encroachment at th e lower cervical levels, question some foraminal encroachment at C2-3 bilaterally, C3-4 on the right. Suspect an underlying spinal curvature. No evident acute fracture or subluxation. Loss of lordosis l ikely due to postop change. Impression: Degenerative disc disease and postop changes.
== END | disposition home or self-care (01) ==
LOC: LABWHC1 09:54
PROVIDERS: ATTEND Nurse Practitioner
DX: M50.30 Other cervical disc degeneration, unspecified cervical region (principal); E87.5 Hyperkalemia; Z98.890 Other specified postprocedural states
CPT/HCPCS: 36415; 72050; 80048

== ENCOUNTER → 2018-09-04 | Outpatient (CLI) | payer MEDICARE ==
--- NOTE | 2018-09-04 12:36 | FL ---
EXAMINATION TYPE: FL barium swallow w video DATE OF EXAM: 09/04/2018 COMPARISON: NONE HISTORY: Disease of the pharynx. TECHNIQUE: Fluoroscopy. FINDINGS: Fluoroscopic guidance was provided for the procedure performed in conjunction with the [facility] pathology department. Please see complete report forthcoming from the Speech Pathology departmen t. Various consistencies from thin liquid to solids were administered. Fluoroscopy time 1.28 minutes. Number of images: 0. No aspiration or penetration was evident. There is mild pooling within the vallecula with solids. There was normal propulsion of the bolus. Note is made of some deviation over the prevertebral space near the esophageal opening. Persistent cricopharyngeus muscle however is not evident. IMPRESSION: 1. Mild pooling within the vallecula with solids.
== END | disposition home or self-care (01) ==
LOC: RADFLMAIN 10:39
PROVIDERS: ATTEND Family Medicine
DX: J39.2 Other diseases of pharynx (principal)
CPT/HCPCS: 74230

== ENCOUNTER → 2019-07-03 | Outpatient (CLI) | payer MEDICARE ==
--- NOTE | 2019-07-04 10:07 | XR ---
EXAMINATION TYPE: XR chest 2V DATE OF EXAM: 07/03/2019 COMPARISON: 02/20/2018 TECHNIQUE: PA and lateral views submitted. HISTORY: Shortness of breath FINDINGS: Heart size normal. Atherosclerotic change aorta. Diffuse osteopenia and arthropathy of the shoulders. Postsurgical change left shoulder. By basilar subsegmental consolidation. Hypertrophic and degenerat kolby change of the spine. No overt failure. IMPRESSION: 1. Bibasilar atelectasis favored over infiltrate correlate clinically.
== END | disposition home or self-care (01) ==
LOC: RADXRMAIN 17:51
PROVIDERS: ATTEND Family Medicine
DX: R06.02 Shortness of breath (principal); R06.2 Wheezing
CPT/HCPCS: 71046

== ENCOUNTER 2019-07-06 13:14 | Inpatient (IN) | payer MEDICARE ==
[2019-07-06] MEDS ORDERED: IPRATROPIUM-ALBUTEROL 3 ML NEB INHALATION STA (13:43)
--- NOTE | 2019-07-06 13:54 | ED ---
General Adult HPI - General Chief complaint: Shortness of Breath Stated complaint: VAUGHN Time Seen by Provider: 07/06/19 13:20 Source: patient, RN notes reviewed, old records reviewed Mode of arrival: ambulatory Limitations: no limitations - History of Present Illness Initial comments: This is an 83-year-old female presents emergency Department complaining of shortness of breath and chest pain. Patient states it started yesterday. Patient states it would calm and last about a half an hour. Patient states it also come anytime she tried to exert herself. Patient denies any fever chills or cough. Patient denies any palpitations. Patient denies any radiation of the chest pain. Patient denied any diaphoretic episodes. Patient had abdominal pain patient nausea vomiting diarrhea. Patient denies any lightheadedness or dizziness. Patient denies headache patient denies numbness weakness. - Related Data Home Medications Medication Instructions Recorded Confirmed Ezetimibe [Zetia] 10 mg PO DAILY 11/14/13 02/20/18 Furosemide [Lasix] 40 mg PO DAILY 11/14/13 02/20/18 glipiZIDE [Glucotrol] 20 mg PO BID 11/14/13 02/20/18 Nitroglycerin Sl Tabs [Nitrostat] 0.4 mg SUBLINGUAL Q5M PRN 07/20/15 02/20/18 HYDROcodone/APAP 5-325MG [[place] 1 tab PO Q6HR PRN 06/13/16 02/20/18 5-325] Gabapentin 400 mg PO DAILY 06/18/17 02/20/18 Gabapentin 800 mg PO HS 06/18/17 02/20/18 Aspirin [Adult Low Dose Aspirin EC] 81 mg PO DAILY 09/06/17 02/20/18 Albuterol Sulfate [Proventil Hfa] 1 - 2 puff INHALATION Q6HR PRN 02/20/18 02/20/18 Beclomethasone Dip 80 Mcg/Puff 1 puff INHALATION BID 02/20/18 02/20/18 [Qvar 80 mcg] Lisinopril [Zestril] 5 mg PO BID 02/20/18 02/20/18 metFORMIN HCL 1,000 mg PO BID 02/20/18 02/20/18 sitaGLIPtin PHOSPHATE [Januvia] 100 mg PO DAILY 02/20/18 02/20/18 Previous Rx's Medication Instructions Recorded Atorvastatin Calcium [Lipitor] 40 mg PO HS #1 tab 08/04/15 Metoprolol Tartrate [Lopressor] 50 mg PO BID #60 tab 02/09/17 Levofloxacin [Levaquin] 750 mg PO DAILY 5 Days #5 tab 02/21/18 predniSONE See Taper PO DIRECTED #55 tab 02/21/18 Allergies Allergy/AdvReac Type Severity Reaction Status Date / Time Penicillins Allergy Rash/Hives Verified 07/06/19 13:21 Review of Systems ROS Statement: Those systems with pertinent positive or pertinent negative responses have been documented in the HPI. ROS Other: All systems not noted in ROS Statement are negative. Past Medical History Past Medical History: Coronary Artery Disease (CAD), Chest Pain / Angina, COPD, Diabetes Mellitus, GERD/Reflux, Hyperlipidemia, Hypertension, Myocardial Infarction (ME), Osteoarthritis (OA), Thyroid Disorder Additional Past Medical History / Comment(s): 06/18/1712/18/17 Admitted to [facility] with NSTEMI, R lower lobe pneumonia and exacerbation of her COPD. Pt refused heart catheterization. Other hx; NIDDM type II, bilateral peripheral neuropathy in feet, hiatal hernia, arthritis multiple joints, chronic low back pain, lower leg edema, cataracts bilaterally. Last Myocardial Infarction Date:: 06/17/18 History of Any Multi-Drug Resistant Organisms: ESBL Date of last positivie culture/infection: 09/06/17 MDRO Source:: ESBL URINE Past Surgical History: Back Surgery, Joint Replacement, Orthopedic Surgery Additional Past Surgical History / Comment(s): 07/29/15 lumbar laminectomy decompression fusion L3-4 and L5-S1 with cell saver, lumbar instrumentation removal L4-5, L4-L5 laminectomy, ZULY KNEE REPLACEMENTS,ORIF RT ANKLE, CERVICAL FUSION, zuly rotator cuff repair, surgery to zuly wrist carpal tunnel releases, pain procedures, L breast lumpectomy-benign, bilateral legs varicose vein stripping. Past Anesthesia/Blood Transfusion Reactions: No Reported Reaction Additional Past Anesthesia/Blood Transfusion Reaction / Comment(s): Pt states she has never received blood. Past Psychological History: Anxiety, Depression Smoking Status: Former smoker Past Alcohol Use History: None Reported Past Drug Use History: None Reported - Past Family History Father Brother(s) Family Medical History: Cancer Mother Sister(s) Family Medical History: Cancer Father Family Medical History: Myocardial Infarction (ME) Additional Family Medical History / Comment(s): Father at 40 of a ME. Mother Family Medical History: CVA/TIA Additional Family Medical History / Comment(s): Mother had a CVA General Exam - General Exam Comments Initial Comments: GENERAL: Patient is well-developed and well-nourished. Patient is nontoxic and well- hydrated and is in mild distress. ENT: Neck is soft and supple. No significant lymphadenopathy is noted. Oropharynx is clear. Moist mucous membranes. Neck has full range of motion without eliciting any pain. EYES: The sclera were anicteric and conjunctiva were pink and moist. Extraocular movements were intact and pupils were equal round and reactive to light. Eyelids were unremarkable. PULMONARY: Unlabored respirations. Good breath sounds bilaterally. No audible rales rhonchi or wheezing was noted. CARDIOVASCULAR: There is a regular rate and rhythm without any murmurs gallops or rubs. 6640 ABDOMEN: Soft and nontender with normal bowel sounds. SKIN: Skin is clear with no lesions or rashes and otherwise unremarkable. NEUROLOGIC: Patient is alert and oriented x3. Cranial nerves II through XII are grossly intact. Motor and sensory are also intact. Normal speech, volume and content. Symmetrical smile. MUSCULOSKELETAL: Normal extremities with adequate strength and full range of motion. No lower extremity swelling or edema. No calf tenderness. LYMPHATICS: No significant lymphadenopathy is noted PSYCHIATRIC: Normal psychiatric evaluation. Limitations: no limitations Course Vital Signs 07/06/19 07/06/19 07/06/19 13:19 14:07 14:08 Temperature 99.0 F Pulse Rate 91 81 Respiratory 22 18 18 Rate Blood Pressure 147/75 136/70 O2 Sat by Pulse 91 L 95 Oximetry 07/06/19 14:16 Temperature Pulse Rate 88 Respiratory Rate Blood Pressure O2 Sat by Pulse Oximetry Medical Decision Making - Medical Decision Making EKG shows normal sinus rhythm at 91 bpm WV interval 152 QRS is 80 QT interval 334 QTC is 410. Patient's EKG shows no ST segment elevation or depression. EKG is of poor quality secondary to patient's breathing. X-ray shows left lower lobe pneumonia. I started the patient on Rocephin. I also started patient heparin because of the elevated troponin. I spoke with Dr. gibson he agreed to admit the patient admitted the patient wrote admitting orders. - Lab Data Result diagrams: 07/06/19 13:51 07/06/19 13:51 Lab Results 07/06/19 07/06/19 07/06/19 Range/Units 13:20 13:51 13:51 WBC 19.0 H (3.8-10.6) k/uL RBC 4.23 (3.80-5.40) m/uL Hgb 11.0 L (11.4-16.0) gm/dL Hct 35.7 (34.0-46.0) % MCV 84.4 (80.0-100.0) fL MCH 25.9 (25.0-35.0) pg MCHC 30.7 L (31.0-37.0) g/dL RDW 14.1 (11.5-15.5) % Plt Count 328 (150-450) k/uL Neutrophils % 80 % Lymphocytes % 12 % Monocytes % 6 % Eosinophils % 0 % Basophils % 0 % Neutrophils # 15.2 H (1.3-7.7) k/uL Lymphocytes # 2.2 (1.0-4.8) k/uL Monocytes # 1.2 H (0-1.0) k/uL Eosinophils # 0.1 (0-0.7) k/uL Basophils # 0.0 (0-0.2) k/uL PT (9.0-12.0) sec INR (<1.2) APTT (22.0-30.0) sec Sodium 134 L (137-145) mmol/L Potassium 5.3 H (3.5-5.1) mmol/L Chloride 102 (98-107) mmol/L Carbon Dioxide 19 L (22-30) mmol/L Anion Gap 13 mmol/L BUN 36 H (7-17) mg/dL Creatinine 1.23 H (0.52-1.04) mg/dL Est GFR (CKD-EPI)AfAm 48 (>60 ml/min/1.73 sqM) Est GFR (CKD-EPI)NonAf 41 (>60 ml/min/1.73 sqM) Glucose 175 H (74-99) mg/dL Calcium 9.1 (8.4-10.2) mg/dL Magnesium 1.9 (1.6-2.3) mg/dL Total Bilirubin 0.4 (0.2-1.3) mg/dL AST 22 (14-36) U/L ALT 16 (4-34) U/L Alkaline Phosphatase 75 (38-126) U/L Troponin I (0.000-0.034) ng/mL NT-Pro-B Natriuret Pep pg/mL Total Protein 6.7 (6.3-8.2) g/dL Albumin 3.7 (3.5-5.0) g/dL Influenza Type A RNA Not Detected (Not Detectd) Influenza Type B (PCR) Not Detected (Not Detectd) 07/06/19 07/06/19 07/06/19 Range/Units 13:51 13:51 13:51 WBC (3.8-10.6) k/uL RBC (3.80-5.40) m/uL Hgb (11.4-16.0) gm/dL Hct (34.0-46.0) % MCV (80.0-100.0) fL MCH (25.0-35.0) pg MCHC (31.0-37.0) g/dL RDW (11.5-15.5) % Plt Count (150-450) k/uL Neutrophils % % Lymphocytes % % Monocytes % % Eosinophils % % Basophils % % Neutrophils # (1.3-7.7) k/uL Lymphocytes # (1.0-4.8) k/uL Monocytes # (0-1.0) k/uL Eosinophils # (0-0.7) k/uL Basophils # (0-0.2) k/uL PT 10.1 (9.0-12.0) sec INR 0.9 (<1.2) APTT 25.9 (22.0-30.0) sec Sodium (137-145) mmol/L Potassium (3.5-5.1) mmol/L Chloride (98-107) mmol/L Carbon Dioxide (22-30) mmol/L Anion Gap mmol/L BUN (7-17) mg/dL Creatinine (0.52-1.04) mg/dL Est GFR (CKD-EPI)AfAm (>60 ml/min/1.73 sqM) Est GFR (CKD-EPI)NonAf (>60 ml/min/1.73 sqM) Glucose (74-99) mg/dL Calcium (8.4-10.2) mg/dL Magnesium (1.6-2.3) mg/dL Total Bilirubin (0.2-1.3) mg/dL AST (14-36) U/L ALT (4-34) U/L Alkaline Phosphatase (38-126) U/L Troponin I 0.155 H* (0.000-0.034) ng/mL NT-Pro-B Natriuret Pep 66614 pg/mL Total Protein (6.3-8.2) g/dL Albumin (3.5-5.0) g/dL Influenza Type A RNA (Not Detectd) Influenza Type B (PCR) (Not Detectd) Disposition Clinical Impression: Pneumonia, Non-STEMI (non-ST elevated myocardial infarction) Disposition: ADMITTED IP TO THIS HOSP Referrals: Phan Hartman Jr, [Primary Care Provider] - 1-2 days Time of Disposition: 15:04
[2019-07-06 14:04] LABS: Basophils % (A) 0 %; Eosinophils # (A) 0.1 k/uL (0-0.7); Eosinophils % (A) 0 %; HCT 35.7 % (34.0-46.0); Lymphocytes # (A) 2.2 k/uL (1.0-4.8); Lymphocytes % (A) 12 %; MCH 25.9 pg (25.0-35.0); MCHC 30.7 g/dL (31.0-37.0); MCV 84.4 fL (80.0-100.0); Mean Platelet Volume 7.1; Monocytes # (A) 1.2 k/uL (0-1.0); Monocytes % (A) 6 %; Neutrophils # (A) 15.2 k/uL (1.3-7.7); Neutrophils % (A) 80 %; Platelet Count 328 k/uL (150-450); RBC 4.23 m/uL (3.80-5.40); RDW 14.1 % (11.5-15.5)
[2019-07-06 14:13] LABS: Albumin 3.7 g/dL (3.5-5.0); Calcium 9.1 mg/dL (8.4-10.2); Magnesium 1.9 mg/dL (1.6-2.3); Potassium 5.3 mmol/L (3.5-5.1); Total Bilirubin 0.4 mg/dL (0.2-1.3); Total Protein 6.7 g/dL (6.3-8.2)
--- NOTE | 2019-07-06 14:21 | XR ---
EXAMINATION TYPE: XR chest 2V DATE OF EXAM: 07/06/2019 COMPARISON: 07/03/2019 INDICATION: Cough, difficulty breathing TECHNIQUE: Frontal and lateral views of the chest are obtained. Patient is rotated to the right. FINDINGS: The heart size is normal. The pulmonary vasculature is normal. Minimal infiltrate is at the left base. Correlate for some developing atelectasis or pneumonia. This is a change from comparison. IMPRESSION: 1. Mild developing left basilar infiltrate. Correlate for atelectasis and pneumonia.
[2019-07-06 14:32] LABS: INR 0.9 (<1.2); Partial Thromboplastin Time 25.9 sec (22.0-30.0); Prothrombin Time 10.1 sec (9.0-12.0)
[2019-07-06] MEDS ORDERED: cefTRIAXone IN SWFI 1,000 MG/10 ML SYRINGE IVP STA (14:45)
[2019-07-06] MEDS ORDERED: HEPARIN SODIUM,PORCINE 5,000 UNIT/ML 1 ML VIAL IV ONE (14:46)
[2019-07-06] MEDS: HEPARIN SOD,PORK IN 0.45% NACL 25,000 UNIT in 0.45% NACL 1 250ML.BAG IV SCH (15:07)
[2019-07-06] MEDS ORDERED: NITROGLYCERIN SL TABS 0.4 MG TAB SUBLINGUAL PRN (15:38)
[2019-07-06] MEDS ORDERED: AZITHROMYCIN 500 MG in SODIUM CHLORIDE 0.9% 250 ML IVPB STA (15:40)
[2019-07-06] MEDS: NITROGLYCERIN OINT 1 INCH/GM PACKET TOPICAL SCH (17:49)
[2019-07-06] MEDS ORDERED: methylPREDNISolone SOD SUCCI 125 MG/2 ML VIAL IV STA (19:09)
[2019-07-06 20:52] LABS: Glucose,Whole Blood 209 mg/dL (75-99)
[2019-07-06] MEDS: INSULIN ASPART (NovoLOG) 100 UNIT/ML VIAL SQ SCH (21:37)
[2019-07-06] MEDS: GABAPENTIN 400 MG CAP PO SCH (21:37)
[2019-07-06] MEDS: AMITRIPTYLINE HCL 50 MG TAB PO SCH (21:37)
[2019-07-06] MEDS: METOPROLOL TARTRATE 50 MG TAB PO SCH (21:37)
[2019-07-06] MEDS: LISINOPRIL 10 MG TAB PO SCH (21:37)
[2019-07-06] MEDS: ATORVASTATIN 80 MG TAB PO SCH (21:37)
[2019-07-06] MEDS: HYDROcodone/APAP 5-325MG 1 EACH TAB PO PRN (22:00)
[2019-07-06] MEDS: guaiFENesin 600 MG TABLET.ER PO PRN (22:01)
[2019-07-06 23:58] LABS: Glucose,Whole Blood 145 mg/dL (75-99)
[2019-07-07 00:27] LABS: ABG Base Excess -1.9 mmol/L; ABG HCO3 24 mmol/L (21-25); ABG Oxygen Saturation 96.6 % (94-97); ABG PCO2 49 mmHg (35-45); ABG PH 7.31 (7.35-7.45); ABG PO2 92 mmHg (83-108); ABG TCO2 26 mmol/L (19-24); Allen Test Performed? Yes
[2019-07-07 00:44] LABS: Albumin 3.3 g/dL (3.5-5.0); Calcium 8.5 mg/dL (8.4-10.2); Potassium 5.5 mmol/L (3.5-5.1); Total Bilirubin 0.3 mg/dL (0.2-1.3)
[2019-07-07] MEDS: methylPREDNISolone SOD SUCCI 125 MG/2 ML VIAL IV SCH ×4 (01:02→17:45)
--- NOTE | 2019-07-07 01:13 | CT ---
EXAMINATION TYPE: CT brain wo con DATE OF EXAM: 07/07/2019 COMPARISON: 09/06/2017 HISTORY: AMS CT DLP: 1099.40 mGycm Automated exposure control for dose reduction was used. There is some cerebral cortical atrophy. There is no mass effect nor midline shift. There is no sign of intracranial hemorrhage. The calvarium is intact. Skull base is intact. There is mild mucosal thic kening in the ethmoid and left maxillary sinus. IMPRESSION: Cerebral atrophy. Mild sinusitis. No acute intracranial abnormality. Sinusitis appears new compared t o old exam.
[2019-07-07] MEDS: NITROGLYCERIN OINT 1 INCH/GM PACKET TOPICAL SCH ×4 (01:15→17:44)
[2019-07-07 04:35] LABS: Cholesterol 101 mg/dL (<200); HDL Cholesterol 38 mg/dL (40-60); LDL Cholesterol,Calculated 46 mg/dL (0-99); Triglycerides 84 mg/dL (<150)
[2019-07-07 06:25] LABS: Glucose,Whole Blood 226 mg/dL (75-99)
[2019-07-07] MEDS: LEVOTHYROXINE 50 MCG TAB PO SCH (06:56)
[2019-07-07] MEDS: INSULIN ASPART (NovoLOG) 100 UNIT/ML VIAL SQ SCH ×4 (06:57→20:56)
[2019-07-07] MEDS ORDERED: AZITHROMYCIN 500 MG in SODIUM CHLORIDE 0.9% 250 ML IVPB SCH (09:00)
[2019-07-07] MEDS: ASPIRIN 325 MG TAB PO SCH (09:30)
[2019-07-07] MEDS: FUROSEMIDE 40 MG TAB PO SCH (09:31)
[2019-07-07] MEDS: METOPROLOL TARTRATE 50 MG TAB PO SCH ×2 (09:31→20:56)
[2019-07-07] MEDS: GABAPENTIN 400 MG CAP PO SCH ×2 (09:31→20:56)
[2019-07-07] MEDS: LINAGLIPTIN 5 MG TABLET PO SCH (09:31)
[2019-07-07] MEDS: LISINOPRIL 10 MG TAB PO SCH (09:31)
[2019-07-07 09:40] LABS: Basophils # (A) 0.2 k/uL (0-0.2); Basophils % (A) 1 %; Eosinophils % (A) 0 %; HCT 31.8 % (34.0-46.0); HGB 9.9 gm/dL (11.4-16.0); Hypochromasia Marked; Lymphocytes # (A) 1.7 k/uL (1.0-4.8); Lymphocytes % (A) 10 %; MCH 27.6 pg (25.0-35.0); MCV 89.2 fL (80.0-100.0); Mean Platelet Volume 9.4; Monocytes # (A) 0.6 k/uL (0-1.0); Monocytes % (A) 4 %; Neutrophils # (A) 14.6 k/uL (1.3-7.7); Neutrophils % (A) 85 %; Platelet Count 304 k/uL (150-450); RBC 3.56 m/uL (3.80-5.40); RDW 13.8 % (11.5-15.5); WBC 17.3 k/uL (3.8-10.6)
[2019-07-07 09:50] LABS: Calcium 8.3 mg/dL (8.4-10.2)
[2019-07-07] MEDS ORDERED: SODIUM POLYSTYRENE SULFONATE 15 GM/60 ML BOTTLE PO STA (11:01)
[2019-07-07] MEDS: AZITHROMYCIN 500 MG in SODIUM CHLORIDE 0.9% 250 ML IVPB SCH (11:36)
[2019-07-07] MEDS: HEPARIN SOD,PORK IN 0.45% NACL 25,000 UNIT in 0.45% NACL 1 250ML.BAG IV SCH (11:46)
[2019-07-07 11:52] LABS: Hemoglobin A1C 6.2 % (4.0-6.0)
[2019-07-07 12:35] LABS: Glucose,Whole Blood 210 mg/dL (75-99)
[2019-07-07 17:06] LABS: Glucose,Whole Blood 219 mg/dL (75-99)
[2019-07-07 20:50] LABS: Glucose,Whole Blood 239 mg/dL (75-99)
[2019-07-07] MEDS: AMITRIPTYLINE HCL 50 MG TAB PO SCH (20:56)
[2019-07-07] MEDS: ATORVASTATIN 80 MG TAB PO SCH (20:56)
[2019-07-08 06:05] LABS: Basophils % (A) 0 %; Eosinophils % (A) 0 %; HCT 33.4 % (34.0-46.0); HGB 10.3 gm/dL (11.4-16.0); Hypochromasia Moderate; Lymphocytes # (A) 1.2 k/uL (1.0-4.8); Lymphocytes % (A) 11 %; MCHC 30.8 g/dL (31.0-37.0); MCV 87.6 fL (80.0-100.0); Monocytes # (A) 0.5 k/uL (0-1.0); Monocytes % (A) 4 %; Neutrophils % (A) 84 %; Platelet Count 315 k/uL (150-450); RBC 3.82 m/uL (3.80-5.40); RDW 13.7 % (11.5-15.5); WBC 10.7 k/uL (3.8-10.6)
[2019-07-08 06:23] LABS: Calcium 8.5 mg/dL (8.4-10.2); Magnesium 2.2 mg/dL (1.6-2.3); Potassium 4.4 mmol/L (3.5-5.1)
[2019-07-08 06:34] LABS: Glucose,Whole Blood 259 mg/dL (75-99)
[2019-07-08] MEDS: methylPREDNISolone SOD SUCCI 125 MG/2 ML VIAL IV SCH ×3 (06:49→12:07)
[2019-07-08] MEDS: INSULIN ASPART (NovoLOG) 100 UNIT/ML VIAL SQ SCH ×4 (06:50→22:13)
[2019-07-08] MEDS: NITROGLYCERIN OINT 1 INCH/GM PACKET TOPICAL SCH ×2 (06:50)
[2019-07-08] MEDS: LEVOTHYROXINE 50 MCG TAB PO SCH (06:50)
--- NOTE | 2019-07-08 08:45 | XR ---
EXAMINATION TYPE: XR chest 2V DATE OF EXAM: 07/08/2019 COMPARISON: 07/06/2010 TECHNIQUE: PA and lateral views submitted. HISTORY: Follow-up pneumonia FINDINGS: Heart size stable. Mediastinum somewhat prominent bibasilar and perihilar subsegmental areas of conso lidation small effusion. Biapical. Postsurgical change left shoulder with bilateral arthropathy of th e shoulders. Follow-up to resolution recommended to exclude underlying neoplasm. IMPRESSION: 1. Pleural-parenchymal changes are stable could been the basis of pneumonia. Mild CHF in the differen tial diagnosis
[2019-07-08] MEDS: ASPIRIN 325 MG TAB PO SCH (09:08)
[2019-07-08] MEDS: METOPROLOL TARTRATE 50 MG TAB PO SCH ×2 (09:08→22:13)
[2019-07-08] MEDS: GABAPENTIN 400 MG CAP PO SCH ×2 (09:08→22:13)
[2019-07-08] MEDS: LINAGLIPTIN 5 MG TABLET PO SCH (09:08)
[2019-07-08] MEDS: FUROSEMIDE 40 MG TAB PO SCH (09:08)
[2019-07-08] MEDS: HEPARIN SOD,PORK IN 0.45% NACL 25,000 UNIT in 0.45% NACL 1 250ML.BAG IV SCH (09:18)
--- NOTE | 2019-07-08 11:04 | P.CRDCN ---
History of Present Illness Consult date: 07/07/19 Requesting physician: Дмитрий Montoya Consult reason: atrial fibrillation, congestive heart failure Chief complaint: shortness of breath History of present illness: this is a pleasant 83-year-old female with history of diabetes, hypertension, hyperlipidemia, peripheral vascular disease, nicotine dependence,chronic kidney disease, follows with Dr. Case in the officethe history was obtained from both the patient and her who is at her bedside. Apparently the patient has been dealing with a productive cough and symptoms of shortness of breath at home, she had received some steroids and inhalers as an outpatient without any relief of symptoms. She continued to progressively become more short of breath, and continued to have cough, so her brought her to the hospital.for further evaluation and treatment.chest x-ray showed mild developing left basilar infiltrate, correlate for atelectasis and pneumonia.EKG shows a normal sinus rhythm with no acute changes. A lot of artifact. CAT scan of the brain was performed which revealed cerebral atrophy, mild sinusitis, no acute intracranial abnormality.blood pressure 116/60, 90/50, heart rate in the 60s to 70s, 97% on 2 L of oxygen.White blood cell count on admission 19, 17.3 this morning, hemoglobin on admission 11, 9.9 this morning, platelet count 328 on admission, 304 this morning.pH on admission 7.3, pCO2 49, total CO2 26 and HCO3 24. Sodium 133, potassium 6.0, BUN 37, creatinine 1.3. BNP level 14,300.troponin 0.15, 0.11, 0.13.influenza A and B were negative. Past Medical History Past Medical History: Coronary Artery Disease (CAD), Chest Pain / Angina, COPD, Diabetes Mellitus, GERD/Reflux, Hyperlipidemia, Hypertension, Osteoarthritis (OA), Thyroid Disorder Additional Past Medical History / Comment(s): R lower lobe pneumonia and exace rbation of her COPD. Pt refused heart catheterization. Other hx; NIDDM type II, bilateral peripheral neuropathy in feet, hiatal hernia, arthritis multiple joints, chronic low back pain, lower leg edema, cataracts removed bilaterally. Last Myocardial Infarction Date:: 06/17/18 History of Any Multi-Drug Resistant Organisms: ESBL Date of last positivie culture/infection: 09/06/17 MDRO Source:: ESBL URINE Past Surgical History: Back Surgery, Joint Replacement, Orthopedic Surgery Additional Past Surgical History / Comment(s): 07/29/15 lumbar laminectomy decompression fusion L3-4 and L5-S1 with cell saver, lumbar instrumentation removal L4-5, L4-L5 laminectomy, ZULY KNEE REPLACEMENTS,ORIF bilateral ANKLE, CERVICAL FUSION, zuly rotator cuff repair, surgery to zuly wrist carpal tunnel releases, pain procedures, L breast lumpectomy-benign, bilateral legs varicose vein stripping. Past Anesthesia/Blood Transfusion Reactions: No Reported Reaction Additional Past Anesthesia/Blood Transfusion Reaction / Comment(s): Pt states she has never received blood. Past Psychological History: Anxiety, Depression Additional Psychological History / Comment(s): Is and lives in the family home. 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 Known experience. No international travel. No animal exposures. Stopped smoking 30 years ago no history of alcohol use Smoking Status: Former smoker Past Alcohol Use History: None Reported Additional Past Alcohol Use History / Comment(s): Pt started smoking in 1954 and quit in 1974. She was a 1.5 ppd smoker. Past Drug Use History: None Reported - Past Family History Father Brother(s) Family Medical History: Cancer Mother Sister(s) Family Medical History: Cancer Father Family Medical History: Myocardial Infarction (CA) Additional Family Medical History / Comment(s): Father at 40 of a CA. Mother Family Medical History: CVA/TIA Additional Family Medical History / Comment(s): Mother had a CVA Medications and Allergies Home Medications Medication Instructions Recorded Confirmed Type Furosemide [Lasix] 40 mg PO DAILY 11/14/13 07/06/19 History Nitroglycerin Sl Tabs [Nitrostat] 0.4 mg SUBLINGUAL Q5M PRN 07/20/15 07/06/19 History Atorvastatin Calcium [Lipitor] 40 mg PO HS #1 tab 08/04/15 07/06/19 Rx HYDROcodone/APAP 5-325MG [[place] 1 tab PO Q6HR PRN 06/13/16 07/06/19 History 5-325] Metoprolol Tartrate [Lopressor] 50 mg PO BID #60 tab 02/09/17 07/06/19 Rx Aspirin [Adult Low Dose Aspirin EC] 81 mg PO DAILY 09/06/17 07/06/19 History metFORMIN HCL 1,000 mg PO BID 02/20/18 07/06/19 History sitaGLIPtin PHOSPHATE [Januvia] 100 mg PO DAILY 02/20/18 07/06/19 History Amitriptyline HCl 50 mg PO HS 07/06/19 07/06/19 History Azithromycin [Zithromax Z-pack] See Taper PO DAILY 07/06/19 07/06/19 History Cyanocobalamin [Vitamin B-12 1,000 mcg SQ QMONTH 07/06/19 07/06/19 History Injection] Gabapentin [Neurontin] 400 mg PO QAM 07/06/19 07/06/19 History Gabapentin [Neurontin] 800 mg PO HS 07/06/19 07/06/19 History Levothyroxine Sodium [Synthroid] 50 mcg PO DAILY 07/06/19 07/06/19 History Lisinopril [Zestril] 10 mg PO BID 07/06/19 07/06/19 History glipiZIDE [Glucotrol] 10 mg PO AC-BID 07/06/19 07/06/19 History predniSONE [Deltasone] 20 mg PO DAILY 07/06/19 07/06/19 History Allergies Allergy/AdvReac Type Severity Reaction Status Date / Time Penicillins Allergy Rash/Hives Verified 07/06/19 15:38 Physical Exam Vitals: Vital Signs Temp Pulse Pulse Resp BP BP Pulse Ox 07/07/19 08:00 97.6 F 74 16 91/54 97 07/07/19 04:00 98.2 F 71 20 116/63 94 L 07/07/19 00:00 100.7 F H 83 22 115/67 95 07/06/19 20:00 99.8 F H 105 H 20 112/66 98 07/06/19 17:05 99.8 F H 101 H 30 H 185/81 96 07/06/19 16:21 99.2 F 109 H 22 163/68 93 L 07/06/19 14:16 88 07/06/19 14:08 18 07/06/19 14:07 81 18 136/70 95 07/06/19 13:19 99.0 F 91 22 147/75 91 L Intake and Output 07/06/19 07/07/19 07/07/19 22:59 06:59 14:59 Intake Total 65.513 173.007 Output Total 640 Balance 65.513 -640 173.007 Intake: Intake, IV Titration 65.513 173.007 Amount Heparin Sod,Pork in 0.45% 65.513 173.007 NaCl 25,000 unit In 0.45 % NaCl 1 250ml.bag @ 8.82 UNITS/KG/HR 10.002 mls/ hr IV .Q24H LEIGH ANN Rx#: [id number] Output: Urine 640 Straight 200 Other: # Voids 1 Weight 113.398 kg 117 kg PHYSICAL EXAMINATION: GENERAL:83-year-old female in no acute distress at the time of my examination HEENT: Head is atraumatic, normocephalic. Pupils equal, round. Sclera anicteric. Conjunctiva are clear. Mucous membranes of the mouth are moist. Neck is supple. There is no elevated jugular venous pressure. No carotid bruit is heard. HEART EXAMINATION:heart S1 and S2 systolic ejection murmur is heard CHEST EXAMINATION:Lungs reveal scattered coarse rhonchi and wheezing throughout, diminished air entry to the bases bilaterally. ABDOMEN: [ Soft, Obese,nontender. Bowel sounds are heard. No organomegaly noted]. EXTREMITIES:[ 2+ peripheral pulses with trace evidence of peripheral edema and no calf tenderness noted]. NEUROLOGIC [patient is awake, alert and oriented X3.] . Results 07/08/19 05:39 07/08/19 05:39 Cardiac Enzymes 07/06/19 07/06/19 07/06/19 Range/Units 13:51 13:51 20:16 AST 22 (14-36) U/L Troponin I 0.155 H* 0.117 H* (0.000-0.034) ng/mL 07/07/19 07/07/19 Range/Units 00:13 02:01 AST 20 (14-36) U/L Troponin I 0.135 H* (0.000-0.034) ng/mL Coagulation 07/06/19 07/06/19 07/07/19 Range/Units 13:51 20:16 03:59 PT 10.1 (9.0-12.0) sec APTT 25.9 42.5 H 57.0 H (22.0-30.0) sec Lipids 07/07/19 Range/Units 03:51 Triglycerides 84 (<150) mg/dL Cholesterol 101 (<200) mg/dL HDL Cholesterol 38 L (40-60) mg/dL CBC 07/06/19 07/07/19 Range/Units 13:51 03:51 WBC 19.0 H 17.3 H (3.8-10.6) k/uL RBC 4.23 3.56 L (3.80-5.40) m/uL Hgb 11.0 L 9.9 L (11.4-16.0) gm/dL Hct 35.7 31.8 L (34.0-46.0) % Plt Count 328 304 (150-450) k/uL Comprehensive Metabolic Panel 07/06/19 07/07/19 07/07/19 Range/Units 13:51 00:13 03:51 Sodium 134 L 134 L 133 L (137-145) mmol/L Potassium 5.3 H 5.5 H 6.0 H (3.5-5.1) mmol/L Chloride 102 104 104 (98-107) mmol/L Carbon Dioxide 19 L 23 22 (22-30) mmol/L BUN 36 H 33 H 37 H (7-17) mg/dL Creatinine 1.23 H 1.14 H 1.37 H (0.52-1.04) mg/dL Glucose 175 H 146 H 231 H (74-99) mg/dL Calcium 9.1 8.5 8.3 L (8.4-10.2) mg/dL AST 22 20 (14-36) U/L ALT 16 17 (4-34) U/L Alkaline Phosphatase 75 75 (38-126) U/L Total Protein 6.7 6.0 L (6.3-8.2) g/dL Albumin 3.7 3.3 L (3.5-5.0) g/dL Current Medications Generic Name Dose Route Start Last Admin Trade Name Freq PRN Reason Stop Dose Admin Hydrocodone Bitart/Acetaminophen 1 each 07/06/19 19:08 07/06/19 22:00 [place] 5-325 PO 1 each Q8HR PRN Administration Pain Amitriptyline HCl 50 mg 07/06/19 21:00 07/06/19 21:37 Elavil PO 50 mg HS LE[facility] Administration Aspirin 325 mg 07/07/19 09:00 07/07/19 09:30 Aspirin PO 325 mg DAILY LEIGH ANN Administration Atorvastatin Calcium 80 mg 07/06/19 21:00 07/06/19 21:37 Lipitor PO 80 mg HS LE[facility] ANN Administration Furosemide 40 mg 07/07/19 09:00 07/07/19 09:31 Lasix PO 40 mg DAILY LE[facility] ANN Administration Gabapentin 800 mg 07/06/19 21:00 07/06/19 21:37 Neurontin PO 800 mg HS LEIGH ANN Administration Gabapentin 400 mg 07/07/19 09:00 07/07/19 09:31 Neurontin PO 400 mg QAM LE[facility] Administration Guaifenesin 600 mg 07/06/19 19:10 07/06/19 22:01 Mucinex PO 600 mg Q12HR PRN Administration Congestion Heparin Sodium/Sodium Chloride 250 mls @ 10.002 mls/hr 07/06/19 15:00 07/07/19 11:46 25,000 unit/ Sodium Chloride IV 10.82 units/kg/hr .Q24H [facility] 12.27 mls/hr Administration Protocol 8.82 UNITS/KG/HR Ceftriaxone Sodium 1 gm/ 50 mls @ 100 mls/hr 07/07/19 09:00 07/07/19 09:30 Sodium Chloride IVPB 100 mls/hr Q24HR [facility] Administration Azithromycin 500 mg/ Sodium 250 mls @ 250 mls/hr 07/07/19 11:00 07/07/19 11:36 Chloride IVPB 250 mls/hr Q24H LE[facility] Administration Insulin Aspart 0 unit 07/06/19 21:00 07/07/19 06:57 Novolog SQ 7 unit ACHS LE[facility] Administration Protocol Levothyroxine Sodium 50 mcg 07/07/19 06:30 07/07/19 06:56 Synthroid PO 50 mcg 0630 LE[facility] ANN Administration Linagliptin 5 mg 07/07/19 09:00 07/07/19 09:31 Tradjenta PO 5 mg DAILY LE[facility] ANN Administration Methylprednisolone Sodium Succinate 60 mg 07/07/19 00:00 07/07/19 11:37 Solu-Medrol IV 60 mg Q6HR LE[facility] Administration Metoprolol Tartrate 50 mg 07/06/19 21:00 07/07/19 09:31 Lopressor PO 50 mg BID LE[facility] Administration Nitroglycerin 0.4 mg 07/06/19 15:38 Nitrostat SUBLINGUAL Q5M PRN Chest Pain Nitroglycerin 1 inch 07/06/19 18:00 07/07/19 11:42 Nitro-Bid Oint TOPICAL 1 inch Q6HR LE[facility] Administration Intake and Output 07/06/19 07/07/19 07/07/19 22:59 06:59 14:59 Intake Total 65.513 173.007 Output Total 640 Balance 65.513 -640 173.007 Intake: Intake, IV Titration 65.513 173.007 Amount Heparin Sod,Pork in 0.45% 65.513 173.007 NaCl 25,000 unit In 0.45 % NaCl 1 250ml.bag @ 8.82 UNITS/KG/HR 10.002 mls/ hr IV .Q24H [facility] Rx#: [id number] Output: Urine 640 Straight 200 Other: # Voids 1 Weight 113.398 kg 117 kg 07/07/19 03:51 07/07/19 03:51 EKG Interpretations (text) EKG shows a normal sinus rhythm with nonspecific ST-T wave changes, Assessment and Plan Plan: assessment and plan #1 diastolic congestive heart failure acute on chronic #2 pneumonia #3 diabetes #4 hypertension #5 hyperlipidemia #6 peripheral vascular disease #7 nicotine dependence #8 chronic kidney disease Plan Will obtain an echocardiogram with Doppler study, continue current dose of IV L asix. Continue to monitor intake and output along with daily weights and daily lytes BUN and creatinine. DNP note has been reviewed, I agree with a documented findings and plan of care. Patient was seen and examined.
--- NOTE | 2019-07-08 11:07 | P.PN ---
Subjective Progress Note Date: 07/08/19 This is a pleasant 83-year-old female with history of diabetes, hypertension, hyperlipidemia, peripheral vascular disease, nicotine dependence,chronic kidney disease, follows with Dr. Case in the officethe history was obtained from both the patient and her who is at her bedside. Apparently the patient has been dealing with a productive cough and symptoms of shortness of breath at home, she had received some steroids and inhalers as an outpatient without any relief of symptoms. She continued to progressively become more short of breath, and continued to have cough, so her brought her to the hospital.for further evaluation and treatment.chest x-ray showed mild developing left basilar infiltrate, correlate for atelectasis and pneumonia.EKG shows a normal sinus rhythm with no acute changes. A lot of artifact. CAT scan of the brain was performed which revealed cerebral atrophy, mild sinusitis, no acute intracranial abnormality.blood pressure 116/60, 90/50, heart rate in the 60s to 70s, 97% on 2 L of oxygen.White blood cell count on admission 19, 17.3 this morning, hemoglobin on admission 11, 9.9 this morning, platelet count 328 on admission, 304 this morning.pH on admission 7.3, pCO2 49, total CO2 26 and HCO3 24. Sodium 133, potassium 6.0, BUN 37, creatinine 1.3. BNP level 14,300.troponin 0.15, 0.11, 0.13.influenza A and B were negative. 07/08/2019 Patient seen and examined this morning, overall doing better. Blood [id number]/80, we will add Norvasc 5 mg to the patient's medication regime.she diuresed well overnight, her weight is down 2 kg today. We'll discontinue the IV Lasix and start the patient on oral diuretics. Echocardiogram with Doppler study has been performed and is yet pending. Objective - Vital Signs Vital signs: Vital Signs Temp 96.9 F L 07/08/19 08:32 Pulse 76 07/08/19 10:30 Resp 16 07/08/19 10:30 BP 153/66 07/08/19 10:30 Pulse Ox 99 07/08/19 10:30 Intake & Output 07/07/19 07/08/19 07/08/19 18:59 06:59 18:59 Intake Total 353.007 250 Output Total 400 600 Balance -46.993 -600 250 Weight 115.2 kg Intake: Intake, IV Titration 173.007 250 Amount Heparin Sod,Pork in 0.45% 173.007 250 NaCl 25,000 unit In 0.45 % NaCl 1 250ml.bag @ 8.82 UNITS/KG/HR 10.002 mls/ hr IV .Q24H [facility] Rx#: [id number] Oral 180 Output: Urine 400 600 Other: Voiding Method Bedside Commode Toilet # Voids 1 1 # Bowel Movements 1 - Exam PHYSICAL EXAMINATION: GENERAL:83-year-old female in no acute distress at the time of my examination HEENT: Head is atraumatic, normocephalic. Pupils equal, round. Sclera anicteric. Conjunctiva are clear. Mucous membranes of the mouth are moist. Neck is supple. There is no elevated jugular venous pressure. No carotid bruit is heard. HEART EXAMINATION:heart S1 and S2 systolic ejection murmur is heard CHEST EXAMINATION:Lungs reveal fine wheezing throughout, improvement in air entry to the bases bilaterally. ABDOMEN: [ Soft, Obese,nontender. Bowel sounds are heard. No organomegaly noted]. EXTREMITIES:[ 2+ peripheral pulses with trace evidence of peripheral edema and no calf tenderness noted]. NEUROLOGIC [patient is awake, alert and oriented X3.] - Labs CBC & Chem 7: 07/08/19 05:39 07/08/19 05:39 Labs: Abnormal Lab Results - Last 24 Hours (Table) 07/07/19 07/07/19 07/07/19 Range/Units 03:59 12:33 17:04 WBC (3.8-10.6) k/uL Hgb (11.4-16.0) gm/dL Hct (34.0-46.0) % MCHC (31.0-37.0) g/dL Neutrophils # (1.3-7.7) k/uL APTT (22.0-30.0) sec Sodium (137-145) mmol/L BUN (7-17) mg/dL Glucose (74-99) mg/dL POC Glucose (mg/dL) 210 H 219 H (75-99) mg/dL Hemoglobin A1c 6.2 H (4.0-6.0) % 07/07/19 07/08/19 07/08/19 Range/Units 20:49 05:39 05:39 WBC 10.7 H (3.8-10.6) k/uL Hgb 10.3 L (11.4-16.0) gm/dL Hct 33.4 L (34.0-46.0) % MCHC 30.8 L (31.0-37.0) g/dL Neutrophils # 9.0 H (1.3-7.7) k/uL APTT 44.8 H (22.0-30.0) sec Sodium (137-145) mmol/L BUN (7-17) mg/dL Glucose (74-99) mg/dL POC Glucose (mg/dL) 239 H (75-99) mg/dL Hemoglobin A1c (4.0-6.0) % 07/08/19 07/08/19 Range/Units 05:39 06:33 WBC (3.8-10.6) k/uL Hgb (11.4-16.0) gm/dL Hct (34.0-46.0) % MCHC (31.0-37.0) g/dL Neutrophils # (1.3-7.7) k/uL APTT (22.0-30.0) sec Sodium 135 L (137-145) mmol/L BUN 44 H (7-17) mg/dL Glucose 252 H (74-99) mg/dL POC Glucose (mg/dL) 259 H (75-99) mg/dL Hemoglobin A1c (4.0-6.0) % Microbiology - Last 24 Hours (Table) 07/06/19 15:00 Blood Culture - Preliminary Blood No Growth after 24 hours Assessment and Plan Plan: assessment and plan #1 diastolic congestive heart failure acute on chronic #2 pneumonia #3 diabetes #4 hypertension #5 hyperlipidemia #6 peripheral vascular disease #7 nicotine dependence #8 chronic kidney disease Plan echocardiogram with Doppler study remains pending, we will review this once the report is up. We will add Norvasc 5 mg daily to the patient's medication regime, discontinue the IV Lasix and start the patient on oral diuretics. DNP note has been reviewed, I agree with a documented findings and plan of care. Patient was seen and examined.
[2019-07-08] MEDS: amLODIPine 5 MG TAB PO SCH (11:14)
[2019-07-08] MEDS: AZITHROMYCIN 500 MG in SODIUM CHLORIDE 0.9% 250 ML IVPB SCH (11:15)
[2019-07-08 11:54] LABS: Glucose,Whole Blood 206 mg/dL (75-99)
--- NOTE | 2019-07-08 13:32 | ECHOF ---
Referral Reason:chf MEASUREMENTS -------- HEIGHT: 160.0 cm WEIGHT: 114.8 kg BP: IVSd: 1.1 cm (0.6 - 1.1) LVIDd: 4.3 cm (3.9 - 5.3) LVPWd: 1.2 cm (0.6 - 1.1) IVSs: 1.6 cm LVIDs: 2.9 cm LVPWs: 1.5 cm LA Diam: 4.6 cm (2.7 - 3.8) LAESV Index (A-L): 30.31 ml/m Ao Diam: 3.1 cm (2.0 - 3.7) LA Diam: 4.3 cm (2.7 - 3.8) MV EXCURSION: 20.130 mm (> 18.000) MV EF SLOPE: 98 mm/s (70 - 150) EPSS: 0.6 cm MV E Kamar: 0.98 m/s MV DecT: 235 ms MV A Kamar: 1.02 m/s MV E/A Ratio: 0.96 RAP: 5.00 mmHg RVSP: 48.90 mmHg FINDINGS -------- Sinus rhythm. Morbid Obesity This was a techncally difficult study with suboptimal views, , Lumason utilized for enhancement of images. The left ventricular size is normal. There is mild concentric left ventricular hypertrophy. Overa ll left ventricular systolic function is low-normal with, an EF between 50 - 55 %. The right ventricle is normal in size. The left atrium is moderately dilated. LA is moderately dilated 34-39 ml/m2 The right atrial size is normal. There is mild aortic valve sclerosis. There is no evidence of aortic regurgitation. Mild mitral annular calcification present. Moderate mitral regurgitation is present. Moderate tricuspid regurgitation present. There is moderate pulmonary hypertension. The right george tricular systolic pressure, as measured by Doppler, is 48.90mmHg. There is no pulmonic regurgitation present. The aortic root size is normal. Echo free space represents a pericardial fat pad. CONCLUSIONS -------- 1. Sinus rhythm. 2. Morbid Obesity 3. This was a techncally difficult study with suboptimal views, , Lumason utilized for enhancement of images. 4. The left ventricular size is normal. 5. There is mild concentric left ventricular hypertrophy. 6. Overall left ventricular systolic function is low-normal with, an EF between 50 - 55 %. 7. The right ventricle is normal in size. 8. The left atrium is moderately dilated. 9. LA is moderately dilated 34-39 ml/m2 10. The right atrial size is normal. 11. There is mild aortic valve sclerosis. 12. Mild mitral annular calcification present. 13. Moderate mitral regurgitation is present. 14. Moderate tricuspid regurgitation present. 15. There is moderate pulmonary hypertension. 16. The right ventricular systolic pressure, as measured by Doppler, is 48.90mmHg. 17. There is no pulmonic regurgitation present. 18. The aortic root size is normal. 19. Echo free space represents a pericardial fat pad. TRAVELING PASSENGER AGENT: Mercy Linares RDCS
--- NOTE | 2019-07-08 14:32 | P.HPIM ---
History of Present Illness H&P Date: 07/08/19 Chief Complaint: Shortness of breath, chest pain This is an 83-year-old female with history of CAD, angina, COPD, diabetes mellitus, gastroesophageal reflux disease, hypothyroidism, hypertension, anxiety, depression, presented to the ER with complaints of worsening shortness of breath, chest pain 1 day. Patient had some PCP last , received injection, prescription for oral antibiotics. Patient reports symptoms continued to worsen despite oral antibiotics, aggravated by exertion . Reports nonradiating chest pain with harsh cough. Denies any fevers, chills or diaphoresis. Denies lightheadedness dizziness or focal deficits. EKG reported normal sinus rhythm with nonspecific ST-T wave changes. Troponin 0.155 ,0.117, 0.135. Heparin drip initiated. Cardiology consulted. On admission creatinine 1.23, potassium 5.3, magnesium 1.9. Influenza type A and B not detected. Sodium 134. Blood sugar 145 on admission. T-max 100.7, WBC 19. Chest x-ray reporting development of mild left basilar infiltrate, atelectasis versus pneumonia. Brain CT reporting cerebral atrophy, mild sinusitis, no acute intracranial abnormality. Received IV steroids, IV Rocephin, nebulized bronchodilators, IV push Lasix with significant clinical improvement. Developed mild confusion during the night, suspect steroid-induced, resolved. Review of Systems ROS Statement: Those systems with pertinent positive or pertinent negative responses have been documented in the HPI. ROS Other: All systems not noted in ROS Statement are negative. Past Medical History Past Medical History: Coronary Artery Disease (CAD), Chest Pain / Angina, COPD, Diabetes Mellitus, GERD/Reflux, Hyperlipidemia, Hypertension, Osteoarthritis (OA), Thyroid Disorder Additional Past Medical History / Comment(s): R lower lobe pneumonia and exacerbation of her COPD. Pt refused heart catheterization. Other hx; NIDDM type II, bilateral peripheral neuropathy in feet, hiatal hernia, arthritis multiple joints, chronic low back pain, lower leg edema, cataracts removed bi laterally. Last Myocardial Infarction Date:: 06/17/18 History of Any Multi-Drug Resistant Organisms: ESBL Date of last positivie culture/infection: 09/06/17 MDRO Source:: ESBL URINE Past Surgical History: Back Surgery, Joint Replacement, Orthopedic Surgery Additional Past Surgical History / Comment(s): 07/29/15 lumbar laminectomy decompression fusion L3-4 and L5-S1 with cell saver, lumbar instrumentation removal L4-5, L4-L5 laminectomy, ZULY KNEE REPLACEMENTS,ORIF bilateral ANKLE, CERVICAL FUSION, zuly rotator cuff repair, surgery to zuly wrist carpal tunnel releases, pain procedures, L breast lumpectomy-benign, bilateral legs varicose vein stripping. Past Anesthesia/Blood Transfusion Reactions: No Reported Reaction Additional Past Anesthesia/Blood Transfusion Reaction / Comment(s): Pt states she has never received blood. Past Psychological History: Anxiety, Depression Additional Psychological History / Comment(s): Is and lives in the family home. 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 Known experience. No international travel. No animal exposures. Stopped smoking 30 years ago no history of alcohol use Smoking Status: Former smoker Past Alcohol Use History: None Reported Additional Past Alcohol Use History / Comment(s): Pt started smoking in 1954 and quit in 1974. She was a 1.5 ppd smoker. Past Drug Use History: None Reported - Past Family History Father Brother(s) Family Medical History: Cancer Mother Sister(s) Family Medical History: Cancer Father Family Medical History: Myocardial Infarction (NH) Additional Family Medical History / Comment(s): Father at 40 of a NH. Mother Family Medical History: CVA/TIA Additional Family Medical History / Comment(s): Mother had a CVA Medications and Allergies Home Medications Medication Instructions Recorded Confirmed Type Furosemide [Lasix] 40 mg PO DAILY 11/14/13 07/06/19 History Nitroglycerin Sl Tabs [Nitrostat] 0.4 mg SUBLINGUAL Q5M PRN 07/20/15 07/06/19 History Atorvastatin Calcium [Lipitor] 40 mg PO HS #1 tab 08/04/15 07/06/19 Rx HYDROcodone/APAP 5-325MG [Brinson 1 tab PO Q6HR PRN 06/13/16 07/06/19 History 5-325] Metoprolol Tartrate [Lopressor] 50 mg PO BID #60 tab 02/09/17 07/06/19 Rx Aspirin [Adult Low Dose Aspirin EC] 81 mg PO DAILY 09/06/17 07/06/19 History metFORMIN HCL 1,000 mg PO BID 02/20/18 07/06/19 History sitaGLIPtin PHOSPHATE [Januvia] 100 mg PO DAILY 02/20/18 07/06/19 History Amitriptyline HCl 50 mg PO HS 07/06/19 07/06/19 History Azithromycin [Zithromax Z-pack] See Taper PO DAILY 07/06/19 07/06/19 History Cyanocobalamin [Vitamin B-12 1,000 mcg SQ QMONTH 07/06/19 07/06/19 History Injection] Gabapentin [Neurontin] 400 mg PO QAM 07/06/19 07/06/19 History Gabapentin [Neurontin] 800 mg PO HS 07/06/19 07/06/19 History Levothyroxine Sodium [Synthroid] 50 mcg PO DAILY 07/06/19 07/06/19 History Lisinopril [Zestril] 10 mg PO BID 07/06/19 07/06/19 History glipiZIDE [Glucotrol] 10 mg PO AC-BID 07/06/19 07/06/19 History predniSONE [Deltasone] 20 mg PO DAILY 07/06/19 07/06/19 History Allergies Allergy/AdvReac Type Severity Reaction Status Date / Time Penicillins Allergy Rash/Hives Verified 07/06/19 15:38 Physical Exam Vitals: Vital Signs Temp Pulse Pulse Resp BP BP Pulse Ox 07/07/19 08:00 97.6 F 74 16 91/54 97 07/07/19 04:00 98.2 F 71 20 116/63 94 L 07/07/19 00:00 100.7 F H 83 22 115/67 95 07/06/19 20:00 99.8 F H 105 H 20 112/66 98 07/06/19 17:05 99.8 F H 101 H 30 H 185/81 96 07/06/19 16:21 99.2 F 109 H 22 163/68 93 L 07/06/19 14:16 88 07/06/19 14:08 18 07/06/19 14:07 81 18 136/70 95 07/06/19 13:19 99.0 F 91 22 147/75 91 L Intake and Output 07/06/19 07/07/19 07/07/19 22:59 06:59 14:59 Intake Total 65.513 Output Total 640 Balance 65.513 -640 Intake: Intake, IV Titration 65.513 Amount Heparin Sod,Pork in 0.45% 65.513 NaCl 25,000 unit In 0.45 % NaCl 1 250ml.bag @ 8.82 UNITS/KG/HR 10.002 mls/ hr IV .Q24H [facility] Rx#: [id number] Output: Urine 640 Straight 200 Other: # Voids 1 Weight 113.398 kg 117 kg PHYSICAL EXAM: VITAL SIGNS: As above GENERAL: Sitting up in bed, no acute distress HEENT: Conjunctivae normal. eyes normal. Oral mucosa moist. NECK: No JVD. No thyroid enlargement. No LNs CARDIOVASCULAR: S1, S2 regular. Systolic murmur. RESPIRATION: Breath sounds diminished in the bases. Scattered coarse rhonchi with expiratory wheezing. ABDOMEN: Soft, nontender . No guarding. no masses palpable. No ascites, No hepatosplenomegaly.Bowel sounds heard. LEGS: Minimal edema. No clubbing, no cyanosis. Nontender. PSYCHIATRY: Alert and oriented X3, mood and affect normal. NERVOUS SYSTEM: Cranial N 2-12 grossly normal. Moves all 4 limbs. Diffuse weakness No focal deficits. Strength and sensation grossly intact.. Skin: no rash Lymphatic system. No LN neck axilla. Results CBC & Chem 7: 07/08/19 05:39 07/08/19 05:39 Labs: Abnormal Lab Results - Last 24 Hours (Table) 07/06/19 07/06/19 07/06/19 Range/Units 13:51 13:51 13:51 WBC 19.0 H (3.8-10.6) k/uL RBC (3.80-5.40) m/uL Hgb 11.0 L (11.4-16.0) gm/dL Hct (34.0-46.0) % MCHC 30.7 L (31.0-37.0) g/dL Neutrophils # 15.2 H (1.3-7.7) k/uL Monocytes # 1.2 H (0-1.0) k/uL APTT (22.0-30.0) sec ABG pH (7.35-7.45) ABG pCO2 (35-45) mmHg ABG Total CO2 (19-24) mmol/L Sodium 134 L (137-145) mmol/L Potassium 5.3 H (3.5-5.1) mmol/L Carbon Dioxide 19 L (22-30) mmol/L BUN 36 H (7-17) mg/dL Creatinine 1.23 H (0.52-1.04) mg/dL Glucose 175 H (74-99) mg/dL POC Glucose (mg/dL) (75-99) mg/dL Calcium (8.4-10.2) mg/dL Troponin I 0.155 H* (0.000-0.034) ng/mL Total Protein (6.3-8.2) g/dL Albumin (3.5-5.0) g/dL HDL Cholesterol (40-60) mg/dL 07/06/19 07/06/19 07/06/19 Range/Units 20:16 20:16 20:51 WBC (3.8-10.6) k/uL RBC (3.80-5.40) m/uL Hgb (11.4-16.0) gm/dL Hct (34.0-46.0) % MCHC (31.0-37.0) g/dL Neutrophils # (1.3-7.7) k/uL Monocytes # (0-1.0) k/uL APTT 42.5 H (22.0-30.0) sec ABG pH (7.35-7.45) ABG pCO2 (35-45) mmHg ABG Total CO2 (19-24) mmol/L Sodium (137-145) mmol/L Potassium (3.5-5.1) mmol/L Carbon Dioxide (22-30) mmol/L BUN (7-17) mg/dL Creatinine (0.52-1.04) mg/dL Glucose (74-99) mg/dL POC Glucose (mg/dL) 209 H (75-99) mg/dL Calcium (8.4-10.2) mg/dL Troponin I 0.117 H* (0.000-0.034) ng/mL Total Protein (6.3-8.2) g/dL Albumin (3.5-5.0) g/dL HDL Cholesterol (40-60) mg/dL 07/06/19 07/07/19 07/07/19 Range/Units 23:57 00:13 00:15 WBC (3.8-10.6) k/uL RBC (3.80-5.40) m/uL Hgb (11.4-16.0) gm/dL Hct (34.0-46.0) % MCHC (31.0-37.0) g/dL Neutrophils # (1.3-7.7) k/uL Monocytes # (0-1.0) k/uL APTT (22.0-30.0) sec ABG pH 7.31 L (7.35-7.45) ABG pCO2 49 H (35-45) mmHg ABG Total CO2 26 H (19-24) mmol/L Sodium 134 L (137-145) mmol/L Potassium 5.5 H (3.5-5.1) mmol/L Carbon Dioxide (22-30) mmol/L BUN 33 H (7-17) mg/dL Creatinine 1.14 H (0.52-1.04) mg/dL Glucose 146 H (74-99) mg/dL POC Glucose (mg/dL) 145 H (75-99) mg/dL Calcium (8.4-10.2) mg/dL Troponin I (0.000-0.034) ng/mL Total Protein 6.0 L (6.3-8.2) g/dL Albumin 3.3 L (3.5-5.0) g/dL HDL Cholesterol (40-60) mg/dL 07/07/19 07/07/19 07/07/19 Range/Units 02:01 03:51 03:51 WBC 17.3 H (3.8-10.6) k/uL RBC 3.56 L (3.80-5.40) m/uL Hgb 9.9 L (11.4-16.0) gm/dL Hct 31.8 L (34.0-46.0) % MCHC (31.0-37.0) g/dL Neutrophils # 14.6 H (1.3-7.7) k/uL Monocytes # (0-1.0) k/uL APTT (22.0-30.0) sec ABG pH (7.35-7.45) ABG pCO2 (35-45) mmHg ABG Total CO2 (19-24) mmol/L Sodium (137-145) mmol/L Potassium (3.5-5.1) mmol/L Carbon Dioxide (22-30) mmol/L BUN (7-17) mg/dL Creatinine (0.52-1.04) mg/dL Glucose (74-99) mg/dL POC Glucose (mg/dL) (75-99) mg/dL Calcium (8.4-10.2) mg/dL Troponin I 0.135 H* (0.000-0.034) ng/mL Total Protein (6.3-8.2) g/dL Albumin (3.5-5.0) g/dL HDL Cholesterol 38 L (40-60) mg/dL 07/07/19 07/07/19 07/07/19 Range/Units 03:51 03:59 06:23 WBC (3.8-10.6) k/uL RBC (3.80-5.40) m/uL Hgb (11.4-16.0) gm/dL Hct (34.0-46.0) % MCHC (31.0-37.0) g/dL Neutrophils # (1.3-7.7) k/uL Monocytes # (0-1.0) k/uL APTT 57.0 H (22.0-30.0) sec ABG pH (7.35-7.45) ABG pCO2 (35-45) mmHg ABG Total CO2 (19-24) mmol/L Sodium 133 L (137-145) mmol/L Potassium 6.0 H (3.5-5.1) mmol/L Carbon Dioxide (22-30) mmol/L BUN 37 H (7-17) mg/dL Creatinine 1.37 H (0.52-1.04) mg/dL Glucose 231 H (74-99) mg/dL POC Glucose (mg/dL) 226 H (75-99) mg/dL Calcium 8.3 L (8.4-10.2) mg/dL Troponin I (0.000-0.034) ng/mL Total Protein (6.3-8.2) g/dL Albumin (3.5-5.0) g/dL HDL Cholesterol (40-60) mg/dL Thrombosis Risk Factor Assmnt - Choose All That Apply Any of the Below Risk Factors Present?: Yes Each Factor Represents 1 point: Abnormal pulmonary function (COPD), Obesity (BMI >25), Varicose veins Each Risk Factor Represents 3 Points: Family history of DVT/PE Thrombosis Risk Factor Assessment Total Risk Factor Score: 6 Thrombosis Risk Factor Assessment Level: High Risk Assessment and Plan Assessment: Acute Hypoxic respiratory failure secondary to possible Acute left lower lobe pneumonia-failed outpatient treatment, acute on chronic diastolic CHF Possible non-STEMI, with elevated troponins, cardiology following Toxic, metabolic encephalopathy, multifactorial, secondary to infection, CHF, steroid-induced Acute on chronic renal failure Hyperkalemia secondary to the above Leukocytosis secondary to pneumonia Mild hyponatremia CAD, history of angina Diabetes mellitus Hypertension Gastroesophageal reflux disease Osteoarthritis Hypothyroidism Anxiety Depression Former nicotine dependence Plan: Continue on current medication regime ,monitoring and symptomatic treatment. Maintain nebulized bronchodilators, antibiotics, Lasix, heparin drip . Cardiology consulted, recommendations pending. Echo pending. Home meds have been reviewed and resumed accordingly. GI prophylaxis in place. Patient and family updated on plan of care, verbalized understanding of and agreement with. The impression and plan of care has been dictated as directed. : I performed a history and examination of this patient, discussed the same with the dictator. I agree with the dictator's note ,documented as a scribe. Any additional findings or plans will be noted.
[2019-07-08] MEDS ORDERED: IPRATROPIUM-ALBUTEROL 3 ML NEB INHALATION PRN (14:37)
--- NOTE | 2019-07-08 14:56 | P.PN ---
Subjective Progress Note Date: 07/08/19 This is an 83-year-old female with history of CAD, angina, COPD, diabetes mellitus, gastroesophageal reflux disease, hypothyroidism, hypertension, anxiety, depression, presented to the ER with complaints of worsening shortness of breath, chest pain 1 day. Patient had some PCP last , received inje ction, prescription for oral antibiotics. Patient reports symptoms continued to worsen despite oral antibiotics, aggravated by exertion . Reports nonradiating chest pain with harsh cough. Denies any fevers, chills or diaphoresis. Denies lightheadedness dizziness or focal deficits. EKG reported normal sinus rhythm with nonspecific ST-T wave changes. Troponin 0.155 ,0.117, 0.135. Heparin drip initiated. Cardiology consulted. On admission creatinine 1.23, potassium 5.3, magnesium 1.9. Influenza type A and B not detected. Sodium 134. Blood sugar 145 on admission. T-max 100.7, WBC 19. Chest x-ray reporting development of mild left basilar infiltrate, atelectasis versus pneumonia. Brain CT reporting cerebral atrophy, mild sinusitis, no acute intracranial abnormality. Received IV steroids, IV Rocephin, nebulized bronchodilators, IV push Lasix with significant clinical improvement. Developed mild confusion during the night, suspect steroid-induced, resolved. 07/08/2018 maintained on heparin drip. Denies chest pain, palpitations. Diuresed well on Lasix IV with 24-hour I&O reflecting a negative fluid balance .Continues on Omnicef, IV steroids, nebulized bronchodilators, breathing, improving. Echo reporting low normal left ventricular systolic function, EF 50- 55%, moderate mitral regurgitation, moderate tricuspid regurgitation, moderate pulmonary hypertension. Hypertensive, Norvasc added to med regime. Objective - Vital Signs Vital signs: Vital Signs Temp 96.9 F L 07/08/19 08:32 Pulse 76 07/08/19 10:30 Resp 16 07/08/19 10:30 BP 153/66 07/08/19 10:30 Pulse Ox 99 07/08/19 10:30 Intake & Output 07/07/19 07/08/19 07/08/19 18:59 06:59 18:59 Intake Total 353.007 250 Output Total 400 600 500 Balance -46.993 -600 -250 Weight 115.2 kg Intake: Intake, IV Titration 173.007 250 Amount Heparin Sod,Pork in 0.45% 173.007 250 NaCl 25,000 unit In 0.45 % NaCl 1 250ml.bag @ 8.82 UNITS/KG/HR 10.002 mls/ hr IV .Q24H [facility] Rx#: [id number] Oral 180 Output: Urine 400 600 500 Other: Voiding Method Bedside Commode Toilet # Voids 1 1 # Bowel Movements 1 - Exam PHYSICAL EXAM: VITAL SIGNS: As above GENERAL: Sitting up in chair, no acute distress HEENT: Conjunctivae normal. eyes normal. Oral mucosa moist. NECK: No JVD. No thyroid enlargement. No LNs CARDIOVASCULAR: S1, S2 regular. Systolic murmur. RESPIRATION: Unlabored, better air entry, Breath sounds diminished in the bases. Decreasing expiratory wheezing. ABDOMEN: Soft, nontender . No guarding. no masses palpable. No ascites, No hepatosplenomegaly.Bowel sounds heard. LEGS: Trace edema. No clubbing, no cyanosis. Nontender. PSYCHIATRY: Alert and oriented X3, mood and affect normal. NERVOUS SYSTEM: Cranial N 2-12 grossly normal. Moves all 4 limbs. Diffuse weakness No focal deficits. Strength and sensation grossly intact.. Skin: no rash - Labs CBC & Chem 7: 07/08/19 05:39 07/08/19 05:39 Labs: Abnormal Lab Results - Last 24 Hours (Table) 07/07/19 07/07/19 07/08/19 Range/Units 17:04 20:49 05:39 WBC (3.8-10.6) k/uL Hgb (11.4-16.0) gm/dL Hct (34.0-46.0) % MCHC (31.0-37.0) g/dL Neutrophils # (1.3-7.7) k/uL APTT 44.8 H (22.0-30.0) sec Sodium (137-145) mmol/L BUN (7-17) mg/dL Glucose (74-99) mg/dL POC Glucose (mg/dL) 219 H 239 H (75-99) mg/dL 07/08/19 07/08/19 07/08/19 Range/Units 05:39 05:39 06:33 WBC 10.7 H (3.8-10.6) k/uL Hgb 10.3 L (11.4-16.0) gm/dL Hct 33.4 L (34.0-46.0) % MCHC 30.8 L (31.0-37.0) g/dL Neutrophils # 9.0 H (1.3-7.7) k/uL APTT (22.0-30.0) sec Sodium 135 L (137-145) mmol/L BUN 44 H (7-17) mg/dL Glucose 252 H (74-99) mg/dL POC Glucose (mg/dL) 259 H (75-99) mg/dL 07/08/19 Range/Units 11:52 WBC (3.8-10.6) k/uL Hgb (11.4-16.0) gm/dL Hct (34.0-46.0) % MCHC (31.0-37.0) g/dL Neutrophils # (1.3-7.7) k/uL APTT (22.0-30.0) sec Sodium (137-145) mmol/L BUN (7-17) mg/dL Glucose (74-99) mg/dL POC Glucose (mg/dL) 206 H (75-99) mg/dL Microbiology - Last 24 Hours (Table) 07/06/19 15:00 Blood Culture - Preliminary Blood No Growth after 24 hours Assessment and Plan Assessment: Acute Hypoxic respiratory failure secondary to possible Acute left lower lobe pneumonia-failed outpatient treatment, acute on chronic diastolic CHF Possible non-STEMI, with elevated troponins, cardiology following Toxic, metabolic encephalopathy, multifactorial, secondary to infection, CHF, steroid-induced Acute on chronic renal failure Hyperkalemia secondary to the above Leukocytosis secondary to pneumonia Mild hyponatremia CAD, history of angina Diabetes mellitus Hypertension Gastroesophageal reflux disease Osteoarthritis Hypothyroidism Anxiety Depression Former nicotine dependence Pulmonary hypertension Moderate mitral and tricuspid regurgitation Plan: Continue on current medication regime ,monitoring and symptomatic treatment. Aggressive pulmonary toileting, continue nebulized bronchodilators, antibiotics. Tapering of steroids in progress. Lasix converted to oral. Heparin drip and maintained-further recommendations as per Cardiology. The impression and plan of care has been dictated as directed. : I performed a history and examination of this patient, discussed the same with the dictator. I agree with the dictator's note ,documented as a scribe. Any additional findings or plans will be noted.
[2019-07-08] MEDS: methylPREDNISolone SOD SUCCI 40 MG/ML 1 ML VIAL IV SCH ×2 (15:51→23:36)
[2019-07-08] MEDS: IPRATROPIUM-ALBUTEROL 3 ML NEB INHALATION SCH ×2 (16:25→22:21)
[2019-07-08 17:24] LABS: Glucose,Whole Blood 227 mg/dL (75-99)
[2019-07-08 21:13] LABS: Glucose,Whole Blood 301 mg/dL (75-99)
[2019-07-08] MEDS: HYDROcodone/APAP 5-325MG 1 EACH TAB PO PRN (22:12)
[2019-07-08] MEDS: ATORVASTATIN 80 MG TAB PO SCH (22:12)
[2019-07-08] MEDS: CEFDINIR 300 MG CAP PO SCH (22:12)
[2019-07-08] MEDS: AMITRIPTYLINE HCL 50 MG TAB PO SCH (22:13)
[2019-07-08] MEDS: guaiFENesin 600 MG TABLET.ER PO PRN (22:15)
[2019-07-08] MEDS ORDERED: METOPROLOL TARTRATE 50 MG TAB PO STA (23:43)
[2019-07-09] MEDS ORDERED: DILTIAZEM 125 MG in SODIUM CHLORIDE 0.9% 100 ML IV SCH (02:30)
[2019-07-09 06:35] LABS: Glucose,Whole Blood 367 mg/dL (75-99)
[2019-07-09] MEDS: LEVOTHYROXINE 50 MCG TAB PO SCH (06:55)
[2019-07-09] MEDS: IPRATROPIUM-ALBUTEROL 3 ML NEB INHALATION SCH ×4 (07:13→21:04)
[2019-07-09 07:14] LABS: Basophils # (A) 0.2 k/uL (0-0.2); Basophils % (A) 1 %; Eosinophils % (A) 0 %; HCT 30.1 % (34.0-46.0); HGB 9.2 gm/dL (11.4-16.0); Hypochromasia Slight; Lymphocytes # (A) 0.9 k/uL (1.0-4.8); Lymphocytes % (A) 6 %; MCH 26.5 pg (25.0-35.0); MCHC 30.4 g/dL (31.0-37.0); Mean Platelet Volume 8.4; Monocytes # (A) 0.8 k/uL (0-1.0); Monocytes % (A) 6 %; Neutrophils # (A) 11.9 k/uL (1.3-7.7); Neutrophils % (A) 86 %; Platelet Count 354 k/uL (150-450); RBC 3.46 m/uL (3.80-5.40); RDW 13.9 % (11.5-15.5); WBC 13.9 k/uL (3.8-10.6)
[2019-07-09] MEDS: GABAPENTIN 400 MG CAP PO SCH ×2 (07:58→21:35)
[2019-07-09] MEDS: METOPROLOL TARTRATE 50 MG TAB PO SCH ×2 (07:59→21:35)
[2019-07-09] MEDS: FUROSEMIDE 40 MG TAB PO SCH (07:59)
[2019-07-09] MEDS: amLODIPine 5 MG TAB PO SCH (07:59)
[2019-07-09] MEDS: CEFDINIR 300 MG CAP PO SCH ×2 (07:59→21:35)
[2019-07-09] MEDS: methylPREDNISolone SOD SUCCI 40 MG/ML 1 ML VIAL IV SCH ×3 (07:59→23:23)
[2019-07-09] MEDS: LINAGLIPTIN 5 MG TABLET PO SCH (07:59)
[2019-07-09] MEDS: INSULIN ASPART (NovoLOG) 100 UNIT/ML VIAL SQ SCH ×7 (08:03→21:35)
[2019-07-09] MEDS: HEPARIN SOD,PORK IN 0.45% NACL 25,000 UNIT in 0.45% NACL 1 250ML.BAG IV SCH (08:10)
[2019-07-09 08:37] LABS: Potassium 4.6 mmol/L (3.5-5.1)
[2019-07-09] MEDS ORDERED: ASPIRIN 81 MG PO SCH (09:00)
[2019-07-09] MEDS: AZITHROMYCIN 500 MG in SODIUM CHLORIDE 0.9% 250 ML IVPB SCH (11:41)
[2019-07-09] MEDS: APIXABAN 5 MG TAB PO SCH ×2 (11:42→21:35)
[2019-07-09 11:45] LABS: Glucose,Whole Blood 353 mg/dL (75-99)
[2019-07-09] MEDS ORDERED: ONDANSETRON 4 MG/2 ML VIAL IVP PRN (12:37)
[2019-07-09] MEDS: PANTOPRAZOLE 40 MG/10 ML VIAL IVP SCH (12:46)
--- NOTE | 2019-07-09 15:26 | CDI ---
Documentation Clarification Form Date: 07/09/2019 03:19:24 PM From: Swetha Rodriguez CCS, CCDS Admit Date: 07/06/2019 03:38:00 PM Patient Name: Concepcion Newberry Visit Number: [id number] Discharge Date: ATTENTION: The Clinical Documentation Specialists (CDI) and [facility] Coding Staff appreciate your assistance in clarifying documentation. Please respond to the clarification below the line at the bottom and electronically sign. The CDI & [facility] Coding staff will review the response and follow-up if needed. Please note: Queries are made part of the Legal Health Record. If you have any questions, please contact the author of this message via ITS. Dr. Дмитрий Montoya: Per the cardiology consult & subsequent progress note: CKD is documented without further specificity. Nephrology is not consulted. History/Risk Factors: CAD, Angina, COPD, DM, GERD, hypothyroidism, hypertension. Clinical Indicators: Presented with SOB & chest pain. Diagnosed with acute hypoxic respiratory failure secondary to possible acute LLL pneumonia failed outpatient treatment, acute on chronic diastolic CHF, possible NSTEMI, Toxic, metabolic encephalopathy, Acute on chronic renal failure. GFR:: 41 - 45 - 36 - 52 - 58 BUN: 36 - 33 - 37 - 44 - 56 Creatinine: 1.23 - 1.14 - 1.37 - 1.02 - 0.93 Patients baseline GFR/BUN/Cr unknown or not documented. Treatment: INH Albuterol, IV Rocephin, IV Heparin drip, IV Azithromycin, IV Solumedrol, In order to capture the severity of condition, please clarify if the condition signifies: CKD Stage 1 (GFR > 90) CKD Stage 2 (GFR 60-89) ----> CKD Stage 3 (GFR 30-59) Other, please specify Unable to determine (Last Revision: September 2017) MTDD
--- NOTE | 2019-07-09 15:28 | P.PN ---
Subjective Progress Note Date: 07/09/19 This is a pleasant 83-year-old female with history of diabetes, hypertension, hyperlipidemia, peripheral vascular disease, nicotine dependence,chronic kidney disease, follows with Dr. Case in the officethe history was obtained from both the patient and her who is at her bedside. Apparently the patient has been dealing with a productive cough and symptoms of shortness of breath at home, she had received some steroids and inhalers as an outpatient without any relief of symptoms. She continued to progressively become more short of breath, and continued to have cough, so her brought her to the hospital.for further evaluation and treatment.chest x-ray showed mild developing left basilar infiltrate, correlate for atelectasis and pneumonia.EKG shows a normal sinus rhythm with no acute changes. A lot of artifact. CAT scan of the brain was performed which revealed cerebral atrophy, mild sinusitis, no acute intracranial abnormality.blood pressure 116/60, 90/50, heart rate in the 60s to 70s, 97% on 2 L of oxygen.White blood cell count on admission 19, 17.3 this morning, hemoglobin on admission 11, 9.9 this morning, platelet count 328 on admission, 304 this morning.pH on admission 7.3, pCO2 49, total CO2 26 and HCO3 24. Sodium 133, potassium 6.0, BUN 37, creatinine 1.3. BNP level 14,300.troponin 0.15, 0.11, 0.13.influenza A and B were negative. 07/08/2019 Patient seen and examined this morning, overall doing better. Blood qqiddhdo885/80, we will add Norvasc 5 mg to the patient's medication regime.she diuresed well overnight, her weight is down 2 kg today. We'll discontinue the IV Lasix and start the patient on oral diuretics. Echocardiogram with Doppler study has been performed and is yet pending. 07/09/2019 Patient was seen and examined this morning, overall feeling better, went into atrial fibrillation with rapid ventricular response through the night last night. This morning is back in normal sinus rhythm. We will discontinue the IV heparin, increase her dose of beta dejan, and initiate the patient on Eliquis. She may be able to be discharged home once cleared by primary. We will make her a follow-up appointment to see Dr. Case in the office post discharge. Objective - Vital Signs Vital signs: Vital Signs Temp 97.8 F 07/09/19 15:11 Pulse 76 07/09/19 15:23 Resp 20 07/09/19 15:11 BP 136/62 07/09/19 15:11 Pulse Ox 97 07/09/19 15:11 Intake & Output 07/08/19 07/09/19 07/09/19 18:59 06:59 18:59 Intake Total 579.581 42 402.419 Output Total 114 162 6977 Balance 79.581 -458 -1097.581 Weight 114.8 kg Intake: IV 20 0.9 20 Intake, IV Titration 357.581 42 142.419 Amount Diltiazem 125 mg In 42 Sodium Chloride 0.9% 100 ml @ 10 MG/HR 10 mls/hr IV .[id number] [facility] Rx#: [id number] Heparin Sod,Pork in 0.45% 357.581 142.419 NaCl 25,000 unit In 0.45 % NaCl 1 250ml.bag @ 8.82 UNITS/KG/HR 10.002 mls/ hr IV .Q24H [facility] Rx#: [id number] Oral 222 240 Output: Urine 192 289 0612 Other: Voiding Method Toilet Toilet Bedside Commode Bedside Commode # Voids 1 2 - Exam PHYSICAL EXAMINATION: GENERAL:83-year-old female in no acute distress at the time of my examination HEENT: Head is atraumatic, normocephalic. Pupils equal, round. Sclera anicteric. Conjunctiva are clear. Mucous membranes of the mouth are moist. Neck is supple. There is no elevated jugular venous pressure. No carotid bruit is heard. HEART EXAMINATION:heart S1 and S2 systolic ejection murmur is heard CHEST EXAMINATION:Lungs reveal fine wheezing throughout, improvement in air entry to the bases bilaterally. ABDOMEN: [ Soft, Obese,nontender. Bowel sounds are heard. No organomegaly noted]. EXTREMITIES:[ 2+ peripheral pulses with trace evidence of peripheral edema and no calf tenderness noted]. NEUROLOGIC [patient is awake, alert and oriented X3.] - Labs CBC & Chem 7: 07/09/19 06:25 07/09/19 06:25 Labs: Abnormal Lab Results - Last 24 Hours (Table) 07/08/19 07/08/19 07/08/19 Range/Units 15:23 17:22 20:47 WBC (3.8-10.6) k/uL RBC (3.80-5.40) m/uL Hgb (11.4-16.0) gm/dL Hct (34.0-46.0) % MCHC (31.0-37.0) g/dL Neutrophils # (1.3-7.7) k/uL Lymphocytes # (1.0-4.8) k/uL APTT 46.3 H 70.2 H (22.0-30.0) sec Sodium (137-145) mmol/L BUN (7-17) mg/dL Glucose (74-99) mg/dL POC Glucose (mg/dL) 227 H (75-99) mg/dL Calcium (8.4-10.2) mg/dL 07/08/19 07/09/19 07/09/19 Range/Units 20:53 06:25 06:25 WBC 13.9 H (3.8-10.6) k/uL RBC 3.46 L (3.80-5.40) m/uL Hgb 9.2 L (11.4-16.0) gm/dL Hct 30.1 L (34.0-46.0) % MCHC 30.4 L (31.0-37.0) g/dL Neutrophils # 11.9 H (1.3-7.7) k/uL Lymphocytes # 0.9 L (1.0-4.8) k/uL APTT (22.0-30.0) sec Sodium 134 L (137-145) mmol/L BUN 56 H (7-17) mg/dL Glucose 352 H (74-99) mg/dL POC Glucose (mg/dL) 301 H (75-99) mg/dL Calcium 8.0 L (8.4-10.2) mg/dL 07/09/19 07/09/19 07/09/19 Range/Units 06:25 06:28 11:43 WBC (3.8-10.6) k/uL RBC (3.80-5.40) m/uL Hgb (11.4-16.0) gm/dL Hct (34.0-46.0) % MCHC (31.0-37.0) g/dL Neutrophils # (1.3-7.7) k/uL Lymphocytes # (1.0-4.8) k/uL APTT 95.1 H (22.0-30.0) sec Sodium (137-145) mmol/L BUN (7-17) mg/dL Glucose (74-99) mg/dL POC Glucose (mg/dL) 367 H 353 H (75-99) mg/dL Calcium (8.4-10.2) mg/dL Microbiology - Last 24 Hours (Table) 07/06/19 15:00 Blood Culture - Preliminary Blood No Growth after 48 hours Assessment and Plan Plan: assessment and plan #1 diastolic congestive heart failure acute on chronic #2 pneumonia #3 diabetes #4 hypertension #5 hyperlipidemia #6 peripheral vascular disease #7 nicotine dependence #8 chronic kidney disease #9 paroxysmal atrial fibrillation Plan We will discontinue the IV heparin today and start the patient on Eliquis, increase her dose of beta dejan. From our perspective she may be able to be discharged home once she is cleared by primary. We will make her a follow-up appointment in the office with Dr. Case post discharge. DNP note has been reviewed, I agree with a documented findings and plan of care. Patient was seen and examined.
--- NOTE | 2019-07-09 16:47 | P.PN ---
Subjective Progress Note Date: 07/09/19 This is an 83-year-old female with history of CAD, angina, COPD, diabetes mellitus, gastroesophageal reflux disease, hypothyroidism, hypertension, anxiety, depression, presented to the ER with complaints of worsening shortness of breath, chest pain 1 day. Patient had some PCP last , received inje ction, prescription for oral antibiotics. Patient reports symptoms continued to worsen despite oral antibiotics, aggravated by exertion . Reports nonradiating chest pain with harsh cough. Denies any fevers, chills or diaphoresis. Denies lightheadedness dizziness or focal deficits. EKG reported normal sinus rhythm with nonspecific ST-T wave changes. Troponin 0.155 ,0.117, 0.135. Heparin drip initiated. Cardiology consulted. On admission creatinine 1.23, potassium 5.3, magnesium 1.9. Influenza type A and B not detected. Sodium 134. Blood sugar 145 on admission. T-max 100.7, WBC 19. Chest x-ray reporting development of mild left basilar infiltrate, atelectasis versus pneumonia. Brain CT reporting cerebral atrophy, mild sinusitis, no acute intracranial abnormality. Received IV steroids, IV Rocephin, nebulized bronchodilators, IV push Lasix with significant clinical improvement. Developed mild confusion during the night, suspect steroid-induced, resolved. 07/08/2018 maintained on heparin drip. Denies chest pain, palpitations. Diuresed well on Lasix IV with 24-hour I&O reflecting a negative fluid balance .Continues on Omnicef, IV steroids, nebulized bronchodilators, breathing, improving. Echo reporting low normal left ventricular systolic function, EF 50- 55%, moderate mitral regurgitation, moderate tricuspid regurgitation, moderate pulmonary hypertension. Hypertensive, Norvasc added to med regime. 07/09/2019 developed atrial fibrillation with RVR last night. Placed on Cardizem drip, converted to sinus rhythm early this morning. Cardizem drip weaned off ,Beta dejan dose increased.heparin drip discontinued and placed on Eliquis. Converted to oral Lasix yesterday. Hyperglycemic on steroids. Breathing improving, still wheezy. Nauseated with emesis. Objective - Vital Signs Vital signs: Vital Signs Temp 97.7 F 07/09/19 07:53 Pulse 74 07/09/19 08:00 Resp 12 07/09/19 07:53 BP 125/59 07/09/19 07:53 Pulse Ox 97 07/09/19 07:53 Intake & Output 07/08/19 07/09/19 07/09/19 18:59 06:59 18:59 Intake Total 579.581 42 162.419 Output Total 500 500 300 Balance 79.581 -458 -137.581 Weight 114.8 kg Intake: IV 20 0.9 20 Intake, IV Titration 357.581 42 142.419 Amount Diltiazem 125 mg In 42 Sodium Chloride 0.9% 100 ml @ 10 MG/HR 10 mls/hr IV .[id number] [facility] Rx#: [id number] Heparin Sod,Pork in 0.45% 357.581 142.419 NaCl 25,000 unit In 0.45 % NaCl 1 250ml.bag @ 8.82 UNITS/KG/HR 10.002 mls/ hr IV .Q24H [facility] Rx#: [id number] Oral 222 0 Output: Urine 500 500 300 Other: Voiding Method Toilet Toilet Bedside Commode Bedside Commode # Voids 1 1 - Exam PHYSICAL EXAM: VITAL SIGNS: As above GENERAL: Sitting up in BED, no acute distress, tired appearing. HEENT: Conjunctivae normal. eyes normal. Oral mucosa moist. NECK: No JVD. No thyroid enlargement. No LNs CARDIOVASCULAR: S1, S2 regular. Systolic murmur. RESPIRATION: Unlabored, better air entry, Breath sounds diminished in the bases. Decreasing expiratory wheezing. ABDOMEN: Soft, nontender . No guarding. no masses palpable.Bowel sounds heard. LEGS: Trace edema. No clubbing, no cyanosis. Nontender. PSYCHIATRY: Alert and oriented X3, mood and affect normal. NERVOUS SYSTEM: Cranial N 2-12 grossly normal. Moves all 4 limbs. Diffuse weakness No focal deficits. Strength and sensation grossly intact.. Skin: no rash - Labs CBC & Chem 7: 07/09/19 06:25 07/09/19 06:25 Labs: Abnormal Lab Results - Last 24 Hours (Table) 07/08/19 07/08/19 07/08/19 Range/Units 11:52 15:23 17:22 WBC (3.8-10.6) k/uL RBC (3.80-5.40) m/uL Hgb (11.4-16.0) gm/dL Hct (34.0-46.0) % MCHC (31.0-37.0) g/dL Neutrophils # (1.3-7.7) k/uL Lymphocytes # (1.0-4.8) k/uL APTT 46.3 H (22.0-30.0) sec Sodium (137-145) mmol/L BUN (7-17) mg/dL Glucose (74-99) mg/dL POC Glucose (mg/dL) 206 H 227 H (75-99) mg/dL Calcium (8.4-10.2) mg/dL 07/08/19 07/08/19 07/09/19 Range/Units 20:47 20:53 06:25 WBC 13.9 H (3.8-10.6) k/uL RBC 3.46 L (3.80-5.40) m/uL Hgb 9.2 L (11.4-16.0) gm/dL Hct 30.1 L (34.0-46.0) % MCHC 30.4 L (31.0-37.0) g/dL Neutrophils # 11.9 H (1.3-7.7) k/uL Lymphocytes # 0.9 L (1.0-4.8) k/uL APTT 70.2 H (22.0-30.0) sec Sodium (137-145) mmol/L BUN (7-17) mg/dL Glucose (74-99) mg/dL POC Glucose (mg/dL) 301 H (75-99) mg/dL Calcium (8.4-10.2) mg/dL 07/09/19 07/09/19 07/09/19 Range/Units 06:25 06:25 06:28 WBC (3.8-10.6) k/uL RBC (3.80-5.40) m/uL Hgb (11.4-16.0) gm/dL Hct (34.0-46.0) % MCHC (31.0-37.0) g/dL Neutrophils # (1.3-7.7) k/uL Lymphocytes # (1.0-4.8) k/uL APTT 95.1 H (22.0-30.0) sec Sodium 134 L (137-145) mmol/L BUN 56 H (7-17) mg/dL Glucose 352 H (74-99) mg/dL POC Glucose (mg/dL) 367 H (75-99) mg/dL Calcium 8.0 L (8.4-10.2) mg/dL Microbiology - Last 24 Hours (Table) 07/06/19 15:00 Blood Culture - Preliminary Blood No Growth after 48 hours Assessment and Plan Assessment: Acute Hypoxic respiratory failure secondary to possible Acute left lower lobe pneumonia-failed outpatient treatment, acute on chronic diastolic CHF Troponin leak, STEMI ruled out as per cardiology as per discussion with cardiology [employer]. Paroxysmal Atrial fibrillation with RVR Toxic, metabolic encephalopathy, multifactorial, secondary to infection, CHF, steroid-induced Acute on chronic renal failure Hyperkalemia secondary to the above Leukocytosis secondary to pneumonia Mild hyponatremia CAD, history of angina Diabetes mellitus Hypertension Gastroesophageal reflux disease Osteoarthritis Hypothyroidism Anxiety Depression Former nicotine dependence Pulmonary hypertension Moderate mitral and tricuspid regurgitation Plan: Continue on current medication regime , PPI, monitoring and symptomatic treatment. Insulin sliding scale adjusted. Pre-meal insulin added to diabetic regimen. Zofran added to med regime. Diet decreased to full liquids until nausea subsides. Aggressive pulmonary toileting, continue nebulized bronchodilators, antibiotics. The impression and plan of care has been dictated as directed. : I performed a history and examination of this patient, discussed the same with the dictator. I agree with the dictator's note ,documented as a scribe. Any additional findings or plans will be noted.
[2019-07-09 17:17] LABS: Glucose,Whole Blood 343 mg/dL (75-99)
[2019-07-09] MEDS ORDERED: INSULIN ASPART (NovoLOG) 100 UNIT/ML VIAL SQ SCH (17:30)
[2019-07-09 20:53] LABS: Glucose,Whole Blood 380 mg/dL (75-99)
[2019-07-09] MEDS: AMITRIPTYLINE HCL 50 MG TAB PO SCH (21:35)
[2019-07-09] MEDS: guaiFENesin 600 MG TABLET.ER PO PRN (21:35)
[2019-07-09] MEDS: ATORVASTATIN 80 MG TAB PO SCH (21:35)
[2019-07-09] MEDS: HYDROcodone/APAP 5-325MG 1 EACH TAB PO PRN (23:23)
[2019-07-10] MEDS: LEVOTHYROXINE 50 MCG TAB PO SCH (06:18)
[2019-07-10 06:57] LABS: Glucose,Whole Blood 292 mg/dL (75-99)
[2019-07-10] MEDS: INSULIN ASPART (NovoLOG) 100 UNIT/ML VIAL SQ SCH ×7 (07:00→21:54)
[2019-07-10] MEDS: IPRATROPIUM-ALBUTEROL 3 ML NEB INHALATION SCH ×4 (07:01→20:48)
[2019-07-10] MEDS: GABAPENTIN 400 MG CAP PO SCH ×2 (09:29→21:50)
[2019-07-10] MEDS: METOPROLOL TARTRATE 50 MG TAB PO SCH ×2 (09:29→21:52)
[2019-07-10] MEDS: AZITHROMYCIN 500 MG TAB PO SCH (09:30)
[2019-07-10] MEDS: FUROSEMIDE 40 MG TAB PO SCH (09:30)
[2019-07-10] MEDS: CEFDINIR 300 MG CAP PO SCH ×2 (09:30→21:50)
[2019-07-10] MEDS: PANTOPRAZOLE 40 MG/10 ML VIAL IVP SCH (09:30)
[2019-07-10] MEDS: APIXABAN 5 MG TAB PO SCH ×2 (09:30→21:51)
[2019-07-10] MEDS: LINAGLIPTIN 5 MG TABLET PO SCH (09:30)
[2019-07-10] MEDS: amLODIPine 5 MG TAB PO SCH (09:30)
[2019-07-10] MEDS: methylPREDNISolone SOD SUCCI 40 MG/ML 1 ML VIAL IV SCH ×3 (09:30→21:50)
[2019-07-10 12:35] LABS: Glucose,Whole Blood 327 mg/dL (75-99)
--- NOTE | 2019-07-10 15:21 | P.PN ---
Subjective Progress Note Date: 07/10/19 This is a pleasant 83-year-old female with history of diabetes, hypertension, hyperlipidemia, peripheral vascular disease, nicotine dependence,chronic kidney disease, follows with Dr. Case in the officethe history was obtained from both the patient and her who is at her bedside. Apparently the patient has been dealing with a productive cough and symptoms of shortness of breath at home, she had received some steroids and inhalers as an outpatient without any relief of symptoms. She continued to progressively become more short of breath, and continued to have cough, so her brought her to the hospital.for further evaluation and treatment.chest x-ray showed mild developing left basilar infiltrate, correlate for atelectasis and pneumonia.EKG shows a normal sinus rhythm with no acute changes. A lot of artifact. CAT scan of the brain was performed which revealed cerebral atrophy, mild sinusitis, no acute intracranial abnormality.blood pressure 116/60, 90/50, heart rate in the 60s to 70s, 97% on 2 L of oxygen.White blood cell count on admission 19, 17.3 this morning, hemoglobin on admission 11, 9.9 this morning, platelet count 328 on admission, 304 this morning.pH on admission 7.3, pCO2 49, total CO2 26 and HCO3 24. Sodium 133, potassium 6.0, BUN 37, creatinine 1.3. BNP level 14,300.troponin 0.15, 0.11, 0.13.influenza A and B were negative. 07/08/2019 Patient seen and examined this morning, overall doing better. Blood /80, we will add Norvasc 5 mg to the patient's medication regime.she diuresed well overnight, her weight is down 2 kg today. We'll discontinue the IV Lasix and start the patient on oral diuretics. Echocardiogram with Doppler study has been performed and is yet pending. 07/09/2019 Patient was seen and examined this morning, overall feeling better, went into atrial fibrillation with rapid ventricular response through the night last night. This morning is back in normal sinus rhythm. We will discontinue the IV heparin, increase her dose of beta dejan, and initiate the patient on Eliquis. She may be able to be discharged home once cleared by primary. We will make her a follow-up appointment to see Dr. Case in the office post discharge. 07/10/2019 Patient seen and examined this morning, looks well overall, her now was not at the bedside today, but she does state that her breathing is stable, she was remaining in normal sinus rhythm. From our perspective she may be able to be discharged home today and follow up with Dr Case in the office. Objective - Vital Signs Vital signs: Vital Signs Temp 98.2 F 07/10/19 12:27 Pulse 63 07/10/19 12:27 Resp 18 07/10/19 12:27 BP 133/63 07/10/19 12:27 Pulse Ox 96 07/10/19 12:27 Intake & Output 07/09/19 07/10/19 07/10/19 18:59 06:59 18:59 Intake Total 879.419 720 Output Total 3000 2000 Balance -2120.581 -1280 Weight 114.7 kg Intake: IV 20 0.9 20 Intake, IV Titration 142.419 Amount Heparin Sod,Pork in 0.45% 142.419 NaCl 25,000 unit In 0.45 % NaCl 1 250ml.bag @ 8.82 UNITS/KG/HR 10.002 mls/ hr IV .Q24H [facility] Rx#: [id number] Oral 717 720 Output: Urine 3000 2000 Other: Voiding Method Bedside Commode Bedside Commode # Voids 3 1 - Exam PHYSICAL EXAMINATION: GENERAL:83-year-old female in no acute distress at the time of my examination HEENT: Head is atraumatic, normocephalic. Pupils equal, round. Sclera anicteric. Conjunctiva are clear. Mucous membranes of the mouth are moist. Nec k is supple. There is no elevated jugular venous pressure. No carotid bruit is heard. HEART EXAMINATION:heart S1 and S2 systolic ejection murmur is heard CHEST EXAMINATION:Lungs reveal fine wheezing throughout, improvement in air entry to the bases bilaterally. ABDOMEN: [ Soft, Obese,nontender. Bowel sounds are heard. No organomegaly noted]. EXTREMITIES:[ 2+ peripheral pulses with trace evidence of peripheral edema and no calf tenderness noted]. NEUROLOGIC [patient is awake, alert and oriented X3.] - Labs CBC & Chem 7: 07/09/19 06:25 07/09/19 06:25 Labs: Abnormal Lab Results - Last 24 Hours (Table) 07/09/19 07/09/19 07/10/19 Range/Units 17:09 20:48 06:55 POC Glucose (mg/dL) 343 H 380 H 292 H (75-99) mg/dL 07/10/19 Range/Units 12:13 POC Glucose (mg/dL) 327 H (75-99) mg/dL Microbiology - Last 24 Hours (Table) 07/06/19 15:00 Blood Culture - Preliminary Blood No Growth after 72 hours Assessment and Plan Plan: assessment and plan #1 diastolic congestive heart failure acute on chronic #2 pneumonia #3 diabetes #4 hypertension #5 hyperlipidemia #6 peripheral vascular disease #7 nicotine dependence #8 chronic kidney disease #9 paroxysmal atrial fibrillation Plan From cardiology's perspective, patient may be able to be discharged home today, we'll make a follow-up appointment in the office post discharge. DNP note has been reviewed, I agree with a documented findings and plan of care. Patient was seen and examined.
[2019-07-10 16:50] LABS: Glucose,Whole Blood 292 mg/dL (75-99)
[2019-07-10 20:33] LABS: Glucose,Whole Blood 315 mg/dL (75-99)
[2019-07-10] MEDS: ATORVASTATIN 80 MG TAB PO SCH (21:50)
[2019-07-10] MEDS: AMITRIPTYLINE HCL 50 MG TAB PO SCH (21:50)
[2019-07-11 06:46] LABS: Glucose,Whole Blood 255 mg/dL (75-99)
[2019-07-11] MEDS: LEVOTHYROXINE 50 MCG TAB PO SCH (06:46)
[2019-07-11] MEDS: INSULIN ASPART (NovoLOG) 100 UNIT/ML VIAL SQ SCH ×4 (06:46→12:24)
[2019-07-11 06:57] LABS: Basophils # (A) 0.2 k/uL (0-0.2); Basophils % (A) 1 %; Eosinophils % (A) 0 %; HCT 26.6 % (34.0-46.0); HGB 8.5 gm/dL (11.4-16.0); Hypochromasia Moderate; Lymphocytes # (A) 1.8 k/uL (1.0-4.8); Lymphocytes % (A) 12 %; MCH 27.3 pg (25.0-35.0); MCHC 31.9 g/dL (31.0-37.0); MCV 85.6 fL (80.0-100.0); Mean Platelet Volume 7.4; Monocytes # (A) 0.9 k/uL (0-1.0); Monocytes % (A) 6 %; Neutrophils # (A) 11.5 k/uL (1.3-7.7); Neutrophils % (A) 78 %; Platelet Count 374 k/uL (150-450); RDW 13.6 % (11.5-15.5); WBC 14.7 k/uL (3.8-10.6)
[2019-07-11 07:06] LABS: Calcium 8.4 mg/dL (8.4-10.2); Potassium 5.3 mmol/L (3.5-5.1)
[2019-07-11] MEDS: IPRATROPIUM-ALBUTEROL 3 ML NEB INHALATION SCH ×3 (07:49→15:36)
[2019-07-11] MEDS: amLODIPine 5 MG TAB PO SCH (08:30)
[2019-07-11] MEDS: AZITHROMYCIN 500 MG TAB PO SCH (08:30)
[2019-07-11] MEDS: GABAPENTIN 400 MG CAP PO SCH (08:30)
[2019-07-11] MEDS: CEFDINIR 300 MG CAP PO SCH (08:30)
[2019-07-11] MEDS: LINAGLIPTIN 5 MG TABLET PO SCH (08:30)
[2019-07-11] MEDS: METOPROLOL TARTRATE 50 MG TAB PO SCH (08:30)
[2019-07-11] MEDS: APIXABAN 5 MG TAB PO SCH (08:31)
[2019-07-11] MEDS: methylPREDNISolone SOD SUCCI 40 MG/ML 1 ML VIAL IV SCH (08:31)
[2019-07-11] MEDS: FUROSEMIDE 40 MG TAB PO SCH (08:31)
[2019-07-11] MEDS: PANTOPRAZOLE 40 MG/10 ML VIAL IVP SCH (08:31)
[2019-07-11 12:21] VITALS: BP 163/70; TEMP 97.8
[2019-07-11 12:25] LABS: Glucose,Whole Blood 297 mg/dL (75-99)
[2019-07-11 12:51] VITALS: BMI 44.5
--- NOTE | 2019-07-11 15:11 | P.DS ---
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 Paroxysmal Atrial fibrillation with RVR Toxic, metabolic encephalopathy, multifactorial, secondary to infection, CHF, steroid-induced Acute on chronic renal failure stage III Hyperkalemia secondary to the above Leukocytosis secondary to pneumonia Mild hyponatremia CAD, history of angina Diabetes mellitus Hypertension Gastroesophageal reflux disease Osteoarthritis Hypothyroidism Anxiety Depression Former nicotine dependence Pulmonary hypertension Moderate mitral and tricuspid regurgitation Hospital course:This is an 83-year-old female with history of CAD, angina, COPD, diabetes mellitus, gastroesophageal reflux disease, hypothyroidism, hypertension, anxiety, depression, presented to the ER with complaints of worsening shortness of breath, chest pain 1 day. Patient had some PCP last , received injection, prescription for oral antibiotics. Patient reports symptoms continued to worsen despite oral antibiotics, aggravated by exertion . Reports nonradiating chest pain with harsh cough. Denies any fevers, chills or diaphoresis. Denies lightheadedness dizziness or focal deficits. EKG reported normal sinus rhythm with nonspecific ST-T wave changes. Troponin 0.155 ,0.117, 0.135. Heparin drip initiated. Cardiology consulted. On admission creatinine 1.23, potassium 5.3, magnesium 1.9. Influenza type A and B not detected. Sodium 134. Blood sugar 145 on admission. T-max 100.7, WBC 19. Chest x-ray reporting development of mild left basilar infiltrate, atelectasis versus pneumonia. Brain CT reporting cerebral atrophy, mild sinusitis, no acute intracranial abnormality. Received IV steroids, IV Rocephin, nebulized bronchodilators, IV push Lasix with significant clinical improvement. Developed mild confusion during the night, suspect steroid-induced, resolved. 07/08/2018 maintained on heparin drip. Denies chest pain, palpitations. Diuresed well on Lasix IV with 24-hour I&O reflecting a negative fluid balance .Continues on Omnicef, IV steroids, nebulized bronchodilators, breathing, improving. Echo reporting low normal left ventricular systolic function, EF 50- 55%, moderate mitral regurgitation, moderate tricuspid regurgitation, moderate pulmonary hypertension. Hypertensive, Norvasc added to med regime. 07/09/2019 developed atrial fibrillation with RVR last night. Placed on Cardizem drip, converted to sinus rhythm early this morning. Cardizem drip weaned off ,Beta dejan dose increased.heparin drip discontinued and placed on Eliquis. Converted to oral Lasix yesterday. Hyperglycemic on steroids. Breathing improving, still wheezy. Nauseated with emesis. Significant clinical improvement. Patient has been cleared by cardiology for discharge. Patient is being discharged home in a stable condition with guarded prognosis. The impression and plan of care has been dictated as directed. : I performed a history and examination of this patient, discussed the same with the dictator. I agree with the dictator's note ,documented as a scribe. Any additional findings or plans will be noted. Patient Condition at Discharge: Stable Plan - Discharge Summary Discharge Rx Participant: No New Discharge Prescriptions: New Apixaban [Eliquis] 5 mg PO BID #60 tab Metoprolol Tartrate [Lopressor] 100 mg PO BID #120 tab guaiFENesin [Mucinex] 600 mg PO Q12HR PRN tablet.er PRN Reason: Congestion amLODIPine [Norvasc] 5 mg PO DAILY #30 tab Cefdinir [Omnicef] 300 mg PO BID #10 cap Pantoprazole [Protonix] 40 mg PO AC-BRKFST #30 tablet. predniSONE 10 mg PO DIRECTED #21 tab Continue Furosemide [Lasix] 40 mg PO DAILY Nitroglycerin Sl Tabs [Nitrostat] 0.4 mg SUBLINGUAL Q5M PRN PRN Reason: Chest Pain Atorvastatin Calcium [Lipitor] 40 mg PO HS #1 tab HYDROcodone/APAP 5-325MG [[place] 5-325] 1 tab PO Q6HR PRN PRN Reason: Pain sitaGLIPtin PHOSPHATE [Januvia] 100 mg PO DAILY metFORMIN HCL 1,000 mg PO BID Gabapentin [Neurontin] 800 mg PO HS Gabapentin [Neurontin] 400 mg PO QAM Levothyroxine Sodium [Synthroid] 50 mcg PO DAILY Cyanocobalamin [Vitamin B-12 Injection] 1,000 mcg SQ QMONTH glipiZIDE [Glucotrol] 10 mg PO AC-BID Amitriptyline HCl 50 mg PO HS predniSONE [Deltasone] 20 mg PO DAILY #0 Discontinued Metoprolol Tartrate [Lopressor] 50 mg PO BID #60 tab Aspirin [Adult Low Dose Aspirin EC] 81 mg PO DAILY Azithromycin [Zithromax Z-pack] See Taper PO DAILY Lisinopril [Zestril] 10 mg PO BID Discharge Medication List Furosemide [Lasix] 40 mg PO DAILY 11/14/13 [History] Nitroglycerin Sl Tabs [Nitrostat] 0.4 mg SUBLINGUAL Q5M PRN 07/20/15 [History] Atorvastatin Calcium [Lipitor] 40 mg PO HS #1 tab 08/04/15 [Rx] HYDROcodone/APAP 5-325MG [[place] 5-325] 1 tab PO Q6HR PRN 06/13/16 [History] metFORMIN HCL 1,000 mg PO BID 02/20/18 [History] sitaGLIPtin PHOSPHATE [Januvia] 100 mg PO DAILY 02/20/18 [History] Amitriptyline HCl 50 mg PO HS 07/06/19 [History] Cyanocobalamin [Vitamin B-12 Injection] 1,000 mcg SQ QMONTH 07/06/19 [History] Gabapentin [Neurontin] 400 mg PO QAM 07/06/19 [History] Gabapentin [Neurontin] 800 mg PO HS 07/06/19 [History] Levothyroxine Sodium [Synthroid] 50 mcg PO DAILY 07/06/19 [History] glipiZIDE [Glucotrol] 10 mg PO AC-BID 07/06/19 [History] Apixaban [Eliquis] 5 mg PO BID #60 tab 07/11/19 [Rx] Cefdinir [Omnicef] 300 mg PO BID #10 cap 07/11/19 [Rx] Metoprolol Tartrate [Lopressor] 100 mg PO BID #120 tab 07/11/19 [Rx] Pantoprazole [Protonix] 40 mg PO AC-BRKFST #30 tablet.dr 07/11/19 [Rx] amLODIPine [Norvasc] 5 mg PO DAILY #30 tab 07/11/19 [Rx] guaiFENesin [Mucinex] 600 mg PO Q12HR PRN tablet.er 07/11/19 [Rx] predniSONE 10 mg PO DIRECTED #21 tab 07/11/19 [Rx] predniSONE [Deltasone] 20 mg PO DAILY #0 07/11/19 [Rx] Follow up Appointment(s)/Referral(s): Franklin Case MD [STAFF PHYSICIAN] - 07/18/19 8:45 am Phan Hartman Jr, DO [Primary Care Provider] - 07/16/19 3:00 pm [facility], [NON-STAFF] - 1-2 Days Ambulatory/Diagnostic Orders: Complete Blood Count w/diff [LAB.AMB] Time Frame: 3 Days, Location: None Selected Patient Instructions/Handouts: Heart Failure (DC), A-fib (Atrial Fibrillation) (DC), Pneumonia (DC), Safe Use of Anticoagulants (DC) Activity/Diet/Wound Care/Special Instructions: nebs as at home PNEUMONIA 1. Continue coughing and breathing exercises to help clear your lungs of secretions. 2. Sit upright during the day to promote lung expansion. Avoid lying flat. 3. Use incentive spirometer every hour to open your airways. 4. Wash your hands before taking your medications or using your nebulizer. 5. Drink clear liquids as directed, they can help loosen secretions. Avoid milk products, as these can make secretions thicker. 6. Do not smoke, or be around others who smoke. 7. Call your physician if your shortness of breath worsens, if you develop an increased fever greater than 101. CHF 1. Weigh yourself every morning after you urinate. If you gain 2-3 pounds overnight or 5 pounds in one week, call your primary physician for guidance on your medications. Keep a log of your weights. 2. Avoid salt, or foods with hidden salt. Extra salt makes your heart work harder and traps the fluid in your body for longer. 3. Take all of your medications as directed, especially your water pills. NEVER skip a dose. 4. Elevate your legs when you are not up moving around to help with circulation and prevent swelling. 5. Call your physician if you notice any extra swelling in your legs, ankles, feet or abdomen, if you have a new dry cough, if your shortness of breath worsens with activity or at rest, or if you feel more fatigued. Care Plan Goals (MU): Pts 30 day copay for Chi2gel is $43
--- NOTE | 2019-07-11 15:16 | P.PN ---
Subjective Progress Note Date: 07/10/19 This is an 83-year-old female with history of CAD, angina, COPD, diabetes mellitus, gastroesophageal reflux disease, hypothyroidism, hypertension, anxiety, depression, presented to the ER with complaints of worsening shortness of breath, chest pain 1 day. Patient had some PCP last , received inje ction, prescription for oral antibiotics. Patient reports symptoms continued to worsen despite oral antibiotics, aggravated by exertion . Reports nonradiating chest pain with harsh cough. Denies any fevers, chills or diaphoresis. Denies lightheadedness dizziness or focal deficits. EKG reported normal sinus rhythm with nonspecific ST-T wave changes. Troponin 0.155 ,0.117, 0.135. Heparin drip initiated. Cardiology consulted. On admission creatinine 1.23, potassium 5.3, magnesium 1.9. Influenza type A and B not detected. Sodium 134. Blood sugar 145 on admission. T-max 100.7, WBC 19. Chest x-ray reporting development of mild left basilar infiltrate, atelectasis versus pneumonia. Brain CT reporting cerebral atrophy, mild sinusitis, no acute intracranial abnormality. Received IV steroids, IV Rocephin, nebulized bronchodilators, IV push Lasix with significant clinical improvement. Developed mild confusion during the night, suspect steroid-induced, resolved. 07/08/2018 maintained on heparin drip. Denies chest pain, palpitations. Diuresed well on Lasix IV with 24-hour I&O reflecting a negative fluid balance .Continues on Omnicef, IV steroids, nebulized bronchodilators, breathing, improving. Echo reporting low normal left ventricular systolic function, EF 50- 55%, moderate mitral regurgitation, moderate tricuspid regurgitation, moderate pulmonary hypertension. Hypertensive, Norvasc added to med regime. 07/09/2019 developed atrial fibrillation with RVR last night. Placed on Cardizem drip, converted to sinus rhythm early this morning. Cardizem drip weaned off ,Beta dejan dose increased.heparin drip discontinued and placed on Eliquis. Converted to oral Lasix yesterday. Hyperglycemic on steroids. Breathing improving, still wheezy. Nauseated with emesis. 07/10/2019 nausea improving. Telemetry sinus rhythm. Breathing improving. Denies chest pain, palpitations or increased shortness of breath. Objective - Vital Signs Vital signs: Vital Signs Temp 98.2 F 07/10/19 09:35 Pulse 70 07/10/19 09:35 Resp 16 07/10/19 09:35 BP 151/67 07/10/19 09:35 Pulse Ox 98 07/10/19 09:35 Intake & Output 07/09/19 07/10/19 07/10/19 18:59 06:59 18:59 Intake Total 879.419 360 Output Total 3000 Balance -2120.581 360 Weight 114.7 kg Intake: IV 20 0.9 20 Intake, IV Titration 142.419 Amount Heparin Sod,Pork in 0.45% 142.419 NaCl 25,000 unit In 0.45 % NaCl 1 250ml.bag @ 8.82 UNITS/KG/HR 10.002 mls/ hr IV .Q24H [facility] Rx#: [id number] Oral 717 360 Output: Urine 3000 Other: Voiding Method Bedside Commode Bedside Commode # Voids 3 1 - Exam PHYSICAL EXAM: VITAL SIGNS: As above GENERAL: Sitting up at side of BED, no acute distress, tired appearing. HEENT: Conjunctivae normal. eyes normal. Oral mucosa moist. NECK: No JVD. No thyroid enlargement. No LNs CARDIOVASCULAR: S1, S2 regular. Systolic murmur. RESPIRATION: Unlabored, improving air entry, Breath sounds diminished in the bases. Decreasing expiratory wheezing. ABDOMEN: Soft, nontender . No guarding. no masses palpable.Bowel sounds heard. LEGS: Trace edema. No clubbing, no cyanosis. Nontender. PSYCHIATRY: Alert and oriented X3, mood and affect normal. NERVOUS SYSTEM: Cranial N 2-12 grossly normal. Moves all 4 limbs. Diffuse weakness No focal deficits. Strength and sensation grossly intact.. Skin: no rash - Labs CBC & Chem 7: 07/11/19 05:39 07/11/19 05:39 Labs: Abnormal Lab Results - Last 24 Hours (Table) 07/09/19 07/09/19 07/09/19 Range/Units 11:43 17:09 20:48 POC Glucose (mg/dL) 353 H 343 H 380 H (75-99) mg/dL 07/10/19 Range/Units 06:55 POC Glucose (mg/dL) 292 H (75-99) mg/dL Microbiology - Last 24 Hours (Table) 07/06/19 15:00 Blood Culture - Preliminary Blood No Growth after 72 hours Assessment and Plan Assessment: Acute Hypoxic respiratory failure secondary to possible Acute left lower lobe pneumonia-failed outpatient treatment, acute on chronic diastolic CHF Troponin leak, STEMI ruled out as per cardiology as per discussion with meenakshi finney [employer]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 Paroxysmal Atrial fibrillation with RVR Toxic, metabolic encephalopathy, multifactorial, secondary to infection, CHF, steroid-induced Acute on chronic renal failure Hyperkalemia secondary to the above Leukocytosis secondary to pneumonia Mild hyponatremia CAD, history of angina Diabetes mellitus Hypertension Gastroesophageal reflux disease Osteoarthritis Hypothyroidism Anxiety Depression Former nicotine dependence Pulmonary hypertension Moderate mitral and tricuspid regurgitation Plan: Continue on current medication regime , PPI, monitoring and symptomatic treatment. Nausea improving. Aggressive pulmonary toileting, maintain nebulized bronchodilators, antibiotics, steroids.PT/OT. Increase activity as tolerated. Discharge planning in progress for tomorrow. The impression and plan of care has been dictated as directed. : I performed a history and examination of this patient, discussed the same with the dictator. I agree with the dictator's note ,documented as a scribe. Any additional findings or plans will be noted.
[2019-07-11 15:39] VITALS: PULSE 70; RESP 16
[2019-07-12] MEDS ORDERED: PANTOPRAZOLE 40 MG TABLET PO SCH (07:30)
== END 2019-07-11 17:45 | disposition home health service (06) | DRG 291 ==
LOC: EC 13:14 → 3SCARD 15:38
PROVIDERS: ADMIT Family Medicine; ATTEND Family Medicine
DX: I13.0 Hypertensive heart and chronic kidney disease with heart failure and stage 1 through stage 4 chronic kidney disease, or unspecified chronic kidney disease (principal); J96.01 Acute respiratory failure with hypoxia; G92 Toxic encephalopathy; I50.33 Acute on chronic diastolic (congestive) heart failure; J18.9 Pneumonia, unspecified organism; N17.9 Acute kidney failure, unspecified; E87.1 Hypo-osmolality and hyponatremia; J44.0 Chronic obstructive pulmonary disease with (acute) lower respiratory infection; E03.9 Hypothyroidism, unspecified; E11.22 Type 2 diabetes mellitus with diabetic chronic kidney disease; E11.42 Type 2 diabetes mellitus with diabetic polyneuropathy; E11.51 Type 2 diabetes mellitus with diabetic peripheral angiopathy without gangrene; E11.65 Type 2 diabetes mellitus with hyperglycemia; T38.0X5A Adverse effect of glucocorticoids and synthetic analogues, initial encounter; N18.3 Chronic kidney disease, stage 3 (moderate); E78.5 Hyperlipidemia, unspecified; E87.5 Hyperkalemia; Z87.891 Personal history of nicotine dependence; F32.9 Major depressive disorder, single episode, unspecified; F41.9 Anxiety disorder, unspecified; I08.1 Rheumatic disorders of both mitral and tricuspid valves; I25.10 Atherosclerotic heart disease of native coronary artery without angina pectoris; I25.2 Old myocardial infarction; I27.20 Pulmonary hypertension, unspecified; I48.0 Paroxysmal atrial fibrillation; K21.9 Gastro-esophageal reflux disease without esophagitis; M19.90 Unspecified osteoarthritis, unspecified site; Z79.82 Long term (current) use of aspirin; Z79.84 Long term (current) use of oral hypoglycemic drugs; Z79.890 Hormone replacement therapy; Z79.899 Other long term (current) drug therapy; Z82.3 Family history of stroke; Z82.49 Family history of ischemic heart disease and other diseases of the circulatory system; Z96.653 Presence of artificial knee joint, bilateral; Z98.42 Cataract extraction status, left eye; Z98.41 Cataract extraction status, right eye; G89.29 Other chronic pain; M54.5 Low back pain; Z87.01 Personal history of pneumonia (recurrent); K44.9 Diaphragmatic hernia without obstruction or gangrene; Z88.0 Allergy status to penicillin; Z98.1 Arthrodesis status
CPT/HCPCS: 36415; 36600; 70450; 71046; 80048; 80053; 80061; 82805; 83036; 83605; 83735; 83880; 84484; 85025; 85610; 85730; 87040; 87502; 93005; 93306; 94640; 94760; 96365; 96366; 96375; 96376; 99285

== ENCOUNTER 2019-08-16 17:28 | Emergency (ER) | payer MEDICARE ==
[2019-08-16] MEDS ORDERED: IPRATROPIUM-ALBUTEROL 3 ML NEB INHALATION STA (18:05)
[2019-08-16] MEDS ORDERED: methylPREDNISolone SOD SUCCI 125 MG/2 ML VIAL IV STA (18:05)
--- NOTE | 2019-08-16 18:05 | ED ---
SOB HPI - General Chief Complaint: Shortness of Breath Stated Complaint: VAUGHN Time Seen by Provider: 08/16/19 17:39 Source: patient, RN notes reviewed, old records reviewed Mode of arrival: ambulatory Limitations: no limitations - History of Present Illness MD Complaint: shortness of breath, cough, anxiety -: days(s) Severity: moderate Severity scale (1-10): 6 Quality: aching Consistency: constant Improves With: nothing Worsens With: exertion, movement Known History Of: COPD, congestive heart failure Context: recent URI, occurred during exertion, recent illness Associated Symptoms: fever, cough, palpitations Treatments Prior to Arrival: none - Related Data Home Medications Medication Instructions Recorded Confirmed Furosemide [Lasix] 40 mg PO DAILY 11/14/13 07/06/19 Nitroglycerin Sl Tabs [Nitrostat] 0.4 mg SUBLINGUAL Q5M PRN 07/20/15 07/06/19 HYDROcodone/APAP 5-325MG [[place] 1 tab PO Q6HR PRN 06/13/16 07/06/19 5-325] metFORMIN HCL 1,000 mg PO BID 02/20/18 07/06/19 sitaGLIPtin PHOSPHATE [Januvia] 100 mg PO DAILY 02/20/18 07/06/19 Amitriptyline HCl 50 mg PO HS 07/06/19 07/06/19 Cyanocobalamin [Vitamin B-12 1,000 mcg SQ QMONTH 07/06/19 07/06/19 Injection] Gabapentin [Neurontin] 400 mg PO QAM 07/06/19 07/06/19 Gabapentin [Neurontin] 800 mg PO HS 07/06/19 07/06/19 Levothyroxine Sodium [Synthroid] 50 mcg PO DAILY 07/06/19 07/06/19 glipiZIDE [Glucotrol] 10 mg PO AC-BID 07/06/19 07/06/19 Previous Rx's Medication Instructions Recorded Atorvastatin Calcium [Lipitor] 40 mg PO HS #1 tab 08/04/15 Apixaban [Eliquis] 5 mg PO BID #60 tab 07/11/19 Cefdinir [Omnicef] 300 mg PO BID #10 cap 07/11/19 Metoprolol Tartrate [Lopressor] 100 mg PO BID #120 tab 07/11/19 Pantoprazole [Protonix] 40 mg PO AC-BRKFST #30 tablet. 07/11/19 amLODIPine [Norvasc] 5 mg PO DAILY #30 tab 07/11/19 guaiFENesin [Mucinex] 600 mg PO Q12HR PRN tablet.er 07/11/19 predniSONE 10 mg PO DIRECTED #21 tab 07/11/19 predniSONE [Deltasone] 20 mg PO DAILY #0 07/11/19 predniSONE 50 mg PO DAILY #5 tab 08/16/19 Allergies Allergy/AdvReac Type Severity Reaction Status Date / Time Penicillins Allergy Rash/Hives Verified 08/16/19 17:33 Review of Systems ROS Statement: Those systems with pertinent positive or pertinent negative responses have been documented in the HPI. ROS Other: All systems not noted in ROS Statement are negative. Past Medical History Past Medical History: Coronary Artery Disease (CAD), Chest Pain / Angina, COPD, Diabetes Mellitus, GERD/Reflux, Hyperlipidemia, Hypertension, Osteoarthritis (OA), Thyroid Disorder Additional Past Medical History / Comment(s): R lower lobe pneumonia and exacerb ation of her COPD. Pt refused heart catheterization. Other hx; NIDDM type II, bilateral peripheral neuropathy in feet, hiatal hernia, arthritis multiple joints, chronic low back pain, lower leg edema, cataracts removed bilaterally. Last Myocardial Infarction Date:: 06/17/18 History of Any Multi-Drug Resistant Organisms: ESBL Date of last positivie culture/infection: 09/06/17 MDRO Source:: ESBL URINE Past Surgical History: Back Surgery, Joint Replacement, Orthopedic Surgery Additional Past Surgical History / Comment(s): 07/29/15 lumbar laminectomy decompression fusion L3-4 and L5-S1 with cell saver, lumbar instrumentation removal L4-5, L4-L5 laminectomy, ZULY KNEE REPLACEMENTS,ORIF bilateral ANKLE, CERVICAL FUSION, zuly rotator cuff repair, surgery to zuly wrist carpal tunnel releases, pain procedures, L breast lumpectomy-benign, bilateral legs varicose vein stripping. Past Anesthesia/Blood Transfusion Reactions: No Reported Reaction Additional Past Anesthesia/Blood Transfusion Reaction / Comment(s): Pt states she has never received blood. Past Psychological History: Anxiety, Depression Smoking Status: Former smoker Past Alcohol Use History: None Reported Past Drug Use History: None Reported - Past Family History Father Brother(s) Family Medical History: Cancer Mother Sister(s) Family Medical History: Cancer Father Family Medical History: Myocardial Infarction ([place]) Additional Family Medical History / Comment(s): Father at 40 of a [place]. Mother Family Medical History: CVA/TIA Additional Family Medical History / Comment(s): Mother had a CVA General Exam Limitations: no limitations General appearance: alert, in no apparent distress Head exam: Present: atraumatic, normocephalic, normal inspection Eye exam: Present: normal appearance, PERRL, EOMI. Absent: scleral icterus, conjunctival injection, periorbital swelling ENT exam: Present: normal exam, mucous membranes moist Neck exam: Present: normal inspection. Absent: tenderness, meningismus, lymphadenopathy Respiratory exam: Present: wheezes, accessory muscle use, decreased breath sounds, prolonged expiratory. Absent: respiratory distress, rales, rhonchi, stridor Cardiovascular Exam: Present: regular rate, normal rhythm, normal heart sounds. Absent: systolic murmur, diastolic murmur, rubs, gallop, clicks GI/Abdominal exam: Present: soft, normal bowel sounds. Absent: distended, tenderness, guarding, rebound, rigid Extremities exam: Present: normal inspection, full ROM, normal capillary refill. Absent: tenderness, pedal edema, joint swelling, calf tenderness Back exam: Present: normal inspection Neurological exam: Present: alert, oriented X3, CN II-XII intact Psychiatric exam: Present: normal affect, normal mood Skin exam: Present: warm, dry, intact, normal color. Absent: rash Course Vital Signs 08/16/19 08/16/19 08/16/19 17:30 18:40 18:57 Temperature 97.7 F Pulse Rate 88 76 78 Respiratory 20 Rate Blood Pressure 153/57 O2 Sat by Pulse 96 Oximetry Medical Decision Making - Lab Data Result diagrams: 08/16/19 18:06 08/16/19 18:06 Lab Results 08/16/19 08/16/19 08/16/19 Range/Units 18:06 18:06 18:06 WBC 10.8 H (3.8-10.6) k/uL RBC 3.89 (3.80-5.40) m/uL Hgb 9.5 L (11.4-16.0) gm/dL Hct 32.1 L (34.0-46.0) % MCV 82.6 (80.0-100.0) fL MCH 24.6 L (25.0-35.0) pg MCHC 29.7 L (31.0-37.0) g/dL RDW 16.2 H (11.5-15.5) % Plt Count 649 H (150-450) k/uL Neutrophils % 61 % Lymphocytes % 25 % Monocytes % 9 % Eosinophils % 1 % Basophils % 2 % Neutrophils # 6.6 (1.3-7.7) k/uL Lymphocytes # 2.7 (1.0-4.8) k/uL Monocytes # 1.0 (0-1.0) k/uL Eosinophils # 0.1 (0-0.7) k/uL Basophils # 0.2 (0-0.2) k/uL Hypochromasia Marked Poikilocytosis Slight Anisocytosis Slight Sodium 133 L (137-145) mmol/L Potassium 3.8 (3.5-5.1) mmol/L Chloride 97 L (98-107) mmol/L Carbon Dioxide 28 (22-30) mmol/L Anion Gap 8 mmol/L BUN 15 (7-17) mg/dL Creatinine 0.97 (0.52-1.04) mg/dL Est GFR (CKD-EPI)AfAm 63 (>60 ml/min/1.73 sqM) Est GFR (CKD-EPI)NonAf 55 (>60 ml/min/1.73 sqM) Glucose 186 H (74-99) mg/dL Calcium 8.2 L (8.4-10.2) mg/dL Phosphorus 3.3 (2.5-4.5) mg/dL Magnesium 1.5 L (1.6-2.3) mg/dL Total Bilirubin 0.3 (0.2-1.3) mg/dL AST 24 (14-36) U/L ALT 16 (4-34) U/L Alkaline Phosphatase 124 (38-126) U/L Creatine Kinase 43 (30-135) U/L Troponin I (0.000-0.034) ng/mL NT-Pro-B Natriuret Pep 765 pg/mL Total Protein 5.9 L (6.3-8.2) g/dL Albumin 3.0 L (3.5-5.0) g/dL Urine Color Urine Appearance (Clear) Urine pH (5.0-8.0) Ur Specific [place] (1.001-1.035) Urine Protein (Negative) Urine Glucose (UA) (Negative) Urine Ketones (Negative) Urine Blood (Negative) Urine Nitrite (Negative) Urine Bilirubin (Negative) Urine Urobilinogen (<2.0) mg/dL Ur Leukocyte Esterase (Negative) 08/16/19 08/16/19 Range/Units 18:06 19:20 WBC (3.8-10.6) k/uL RBC (3.80-5.40) m/uL Hgb (11.4-16.0) gm/dL Hct (34.0-46.0) % MCV (80.0-100.0) fL MCH (25.0-35.0) pg MCHC (31.0-37.0) g/dL RDW (11.5-15.5) % Plt Count (150-450) k/uL Neutrophils % % Lymphocytes % % Monocytes % % Eosinophils % % Basophils % % Neutrophils # (1.3-7.7) k/uL Lymphocytes # (1.0-4.8) k/uL Monocytes # (0-1.0) k/uL Eosinophils # (0-0.7) k/uL Basophils # (0-0.2) k/uL Hypochromasia Poikilocytosis Anisocytosis Sodium (137-145) mmol/L Potassium (3.5-5.1) mmol/L Chloride (98-107) mmol/L Carbon Dioxide (22-30) mmol/L Anion Gap mmol/L BUN (7-17) mg/dL Creatinine (0.52-1.04) mg/dL Est GFR (CKD-EPI)AfAm (>60 ml/min/1.73 sqM) Est GFR (CKD-EPI)NonAf (>60 ml/min/1.73 sqM) Glucose (74-99) mg/dL Calcium (8.4-10.2) mg/dL Phosphorus (2.5-4.5) mg/dL Magnesium (1.6-2.3) mg/dL Total Bilirubin (0.2-1.3) mg/dL AST (14-36) U/L ALT (4-34) U/L Alkaline Phosphatase (38-126) U/L Creatine Kinase (30-135) U/L Troponin I <0.012 (0.000-0.034) ng/mL NT-Pro-B Natriuret Pep pg/mL Total Protein (6.3-8.2) g/dL Albumin (3.5-5.0) g/dL Urine Color Light Yellow Urine Appearance Clear (Clear) Urine pH 7.5 (5.0-8.0) Ur Specific [place] 1.006 (1.001-1.035) Urine Protein Negative (Negative) Urine Glucose (UA) Negative (Negative) Urine Ketones Negative (Negative) Urine Blood Negative (Negative) Urine Nitrite Negative (Negative) Urine Bilirubin Negative (Negative) Urine Urobilinogen <2.0 (<2.0) mg/dL Ur Leukocyte Esterase Negative (Negative) - EKG Data -: EKG Interpreted by Me (EKG shows sinus rhythm rate of 85, PA 140, QRS 80, QTC 452) Disposition Clinical Impression: COPD exacerbation, Acute exacerbation of chronic obstructive pulmonary disease Disposition: HOME SELF-CARE Condition: Good Instructions (If sedation given, give patient instructions): Acute Bronchitis (ED), Chronic Bronchitis (ED) Prescriptions: predniSONE 50 mg PO DAILY #5 tab Is patient prescribed a controlled substance at d/c from ED?: No Referrals: Дмитрий Montoya MD [Primary Care Provider] - 1-2 days
[2019-08-16 18:25] LABS: Calcium 8.2 mg/dL (8.4-10.2); Magnesium 1.5 mg/dL (1.6-2.3); Phosphorus 3.3 mg/dL (2.5-4.5); Potassium 3.8 mmol/L (3.5-5.1); Total Bilirubin 0.3 mg/dL (0.2-1.3); Total Protein 5.9 g/dL (6.3-8.2)
[2019-08-16 18:31] LABS: Anisocytosis Slight; Basophils # (A) 0.2 k/uL (0-0.2); Basophils % (A) 2 %; Eosinophils # (A) 0.1 k/uL (0-0.7); Eosinophils % (A) 1 %; HCT 32.1 % (34.0-46.0); HGB 9.5 gm/dL (11.4-16.0); Hypochromasia Marked; Lymphocytes # (A) 2.7 k/uL (1.0-4.8); Lymphocytes % (A) 25 %; MCH 24.6 pg (25.0-35.0); MCHC 29.7 g/dL (31.0-37.0); MCV 82.6 fL (80.0-100.0); Mean Platelet Volume 7.1; Monocytes % (A) 9 %; Neutrophils # (A) 6.6 k/uL (1.3-7.7); Neutrophils % (A) 61 %; Platelet Count 649 k/uL (150-450); Poikilocytosis Slight; RBC 3.89 m/uL (3.80-5.40); RDW 16.2 % (11.5-15.5); WBC 10.8 k/uL (3.8-10.6)
--- NOTE | 2019-08-16 18:42 | XR ---
EXAMINATION TYPE: XR chest 2V DATE OF EXAM: 08/16/2019 COMPARISON: 07/08/2019 HISTORY: Follow-up pneumonia TECHNIQUE: 2 views FINDINGS: Heart and mediastinum are normal. There is some mild linear density left lung base. There a re chest leads. Costophrenic angles are clear. There is spurring in the thoracic spine. IMPRESSION: There is subsegmental atelectasis left lung base improved compared to old exam. No heart failure seen. There is clearing of infiltrate right lower lobe compared to last exam.
[2019-08-16 19:34] LABS: Appearance,Urine Clear (Clear); Bilirubin,Urine Negative (Negative); Blood,Urine Negative (Negative); Color,Urine Light Yellow; Glucose,Urine (UA) Negative (Negative); Ketones,Urine Negative (Negative); Leukocyte Esterase,Urine Negative (Negative); Nitrite,Urine Negative (Negative); PH, Urine 7.5 (5.0-8.0); Protein,Urine Negative (Negative); Specific Gravity,Urine 1.006 (1.001-1.035); Urobilinogen,Urine <2.0 mg/dL (<2.0)
[2019-08-16 20:34] VITALS: BP 159/61; PULSE 87; RESP 18; TEMP 98.2
== END 2019-08-16 20:34 | disposition home or self-care (01) ==
LOC: EC 17:28
DX: J44.1 Chronic obstructive pulmonary disease with (acute) exacerbation (principal); I25.119 Atherosclerotic heart disease of native coronary artery with unspecified angina pectoris; I10 Essential (primary) hypertension; E11.40 Type 2 diabetes mellitus with diabetic neuropathy, unspecified; I25.2 Old myocardial infarction; E07.9 Disorder of thyroid, unspecified; Z79.890 Hormone replacement therapy; Z79.84 Long term (current) use of oral hypoglycemic drugs; Z79.899 Other long term (current) drug therapy; Z88.0 Allergy status to penicillin; Z87.891 Personal history of nicotine dependence; Z96.653 Presence of artificial knee joint, bilateral; Z98.1 Arthrodesis status
CPT/HCPCS: 36415; 94640; 93005; 83880; 80053; 82550; 83735; 84100; 84484; 85025; 81003; 71046; 99285; 96374; J2930

== ENCOUNTER → 2020-02-11 | Outpatient (CLI) | payer MEDICARE ==
--- NOTE | 2020-02-11 13:56 | XR ---
EXAMINATION TYPE: XR lumbar spine 2 or 3V DATE OF EXAM: 02/11/2020 CLINICAL HISTORY: Chronic low back pain TECHNIQUE: Frontal and lateral images of the lumbar spine obtained. COMPARISON: Lumbar spine radiograph 12/06/2015 FINDINGS: There is redemonstrated laminectomy changes and lateral osseous fixation from L3 through L 5/S1, and lumbar surgical fixation hardware, with bilateral transpedicular screws and posterior fixat ion rods at L3-L4, bilateral transpedicular screws and posterior fixation rods at L5-S1, and L4-L5 in terbody spacer device. There is no evidence of hardware fracture or interbody spacer device migration versus 2016 comparison. There are 5 lumbar type vertebral bodies identified. There is T12-L1 disc s pace narrowing with osteophytosis. There is L1-L2 disc space narrowing. No significant spondylolisthe sis. Multilevel endplate osteophytes. No evidence of acute fracture or dislocation. Vertebral body he ights are normal. Atherosclerotic calcification of the abdominal aorta. IMPRESSION: 1. Redemonstrated lumbar spine postsurgical and fixation changes spanning from L3 through S1. 2. No acute fracture or dislocation is seen in the lumbar spine.
== END | disposition home or self-care (01) ==
LOC: RADXRMAIN 10:06
PROVIDERS: ATTEND Family Medicine
DX: M54.5 Low back pain (principal); M51.35 Other intervertebral disc degeneration, thoracolumbar region; Z98.890 Other specified postprocedural states
CPT/HCPCS: 72100

== ENCOUNTER 2020-02-18 15:41 | Observation (INO) | payer MEDICARE ==
[2020-02-18] MEDS ORDERED: methylPREDNISolone SOD SUCCI 125 MG/2 ML VIAL IV STA (16:23)
[2020-02-18] MEDS ORDERED: SODIUM CHLORIDE 0.9% 1,000 ML IV STA (16:23)
[2020-02-18] MEDS ORDERED: IPRATROPIUM-ALBUTEROL 3 ML NEB INHALATION STA ×2 (16:23→18:31)
--- NOTE | 2020-02-18 16:28 | ED ---
SOB HPI - General Chief Complaint: Shortness of Breath Stated Complaint: SOB Time Seen by Provider: 02/18/20 15:58 Source: patient, RN notes reviewed Mode of arrival: wheelchair Limitations: no limitations - History of Present Illness Initial Comments: This 84-year-old female history of COPD who states she's had shortness of breath going on since yesterday. She is not getting better with her home medications. She states it feels like her typical COPD. She denies any fevers chills have occasional chills no sweats no overt phlegm production she does have some chest discomfort she believes is secondary to breathing so hard. No nausea vomiting or other symptoms. She did have a neb treatment prior to arrival. MD Complaint: shortness of breath - Related Data Home Medications Medication Instructions Recorded Confirmed Furosemide [Lasix] 40 mg PO DAILY 11/14/13 08/16/19 Nitroglycerin Sl Tabs [Nitrostat] 0.4 mg SUBLINGUAL Q5M PRN 07/20/15 08/16/19 HYDROcodone/APAP 5-325MG [[place] 1 tab PO Q6HR PRN 06/13/16 08/16/19 5-325] metFORMIN HCL 1,000 mg PO BID 02/20/18 08/16/19 sitaGLIPtin PHOSPHATE [Januvia] 100 mg PO DAILY 02/20/18 08/16/19 Amitriptyline HCl 50 mg PO HS 07/06/19 08/16/19 Cyanocobalamin [Vitamin B-12 1,000 mcg SQ Q30D 07/06/19 08/16/19 Injection] Gabapentin [Neurontin] 400 mg PO QAM 07/06/19 08/16/19 Gabapentin [Neurontin] 800 mg PO HS 07/06/19 08/16/19 Levothyroxine Sodium [Synthroid] 50 mcg PO DAILY 07/06/19 08/16/19 glipiZIDE [Glucotrol] 10 mg PO AC-BID 07/06/19 08/16/19 Fluticasone/Umeclidin/Vilan[place] 1 puff INHALATION RT-BID 08/16/19 08/16/19 [Trelegy Ellipta 100-62.5-25] Previous Rx's Medication Instructions Recorded Atorvastatin Calcium [Lipitor] 40 mg PO HS #1 tab 08/04/15 Apixaban [Eliquis] 5 mg PO BID #60 tab 07/11/19 Metoprolol Tartrate [Lopressor] 100 mg PO BID #120 tab 07/11/19 Pantoprazole [Protonix] 40 mg PO AC-BRKFST #30 tablet. 07/11/19 amLODIPine [Norvasc] 5 mg PO DAILY #30 tab 07/11/19 guaiFENesin [Mucinex] 600 mg PO Q12HR PRN tablet.er 07/11/19 predniSONE 50 mg PO DAILY #5 tab 08/16/19 Allergies Allergy/AdvReac Type Severity Reaction Status Date / Time Penicillins Allergy Rash/Hives Verified 02/18/20 15:56 Review of Systems ROS Statement: Those systems with pertinent positive or pertinent negative responses have been documented in the HPI. ROS Other: All systems not noted in ROS Statement are negative. Past Medical History Past Medical History: Coronary Artery Disease (CAD), Chest Pain / Angina, COPD, Diabetes Mellitus, GERD/Reflux, Hyperlipidemia, Hypertension, Osteoarthritis (OA), Thyroid Disorder Additional Past Medical History / Comment(s): R lower lobe pneumonia and exacerbation of her COPD. Pt refused heart catheterization. Other hx; NIDDM type II, bilateral peripheral neuropathy in feet, hiatal hernia, arthritis multiple joints, chronic low back pain, lower leg edema, cataracts removed bilaterally. Last Myocardial Infarction Date:: 06/17/18 History of Any Multi-Drug Resistant Organisms: ESBL Date of last positivie culture/infection: 09/06/17 MDRO Source:: ESBL URINE Past Surgical History: Back Surgery, Joint Replacement, Orthopedic Surgery Additional Past Surgical History / Comment(s): 07/29/15 lumbar laminectomy decompression fusion L3-4 and L5-S1 with cell saver, lumbar instrumentation removal L4-5, L4-L5 laminectomy, ZULY KNEE REPLACEMENTS,ORIF bilateral ANKLE, CERVICAL FUSION, zuly rotator cuff repair, surgery to zuly wrist carpal tunnel releases, pain procedures, L breast lumpectomy-benign, bilateral legs varicose vein stripping. Past Anesthesia/Blood Transfusion Reactions: No Reported Reaction Additional Past Anesthesia/Blood Transfusion Reaction / Comment(s): Pt states she has never received blood. Past Psychological History: Anxiety, Depression Smoking Status: Former smoker Past Alcohol Use History: None Reported Past Drug Use History: None Reported - Past Family History Father Brother(s) Family Medical History: Cancer Mother Sister(s) Family Medical History: Cancer Father Family Medical History: Myocardial Infarction ([place]) Additional Family Medical History / Comment(s): Father at 40 of a [place]. Mother Family Medical History: CVA/TIA Additional Family Medical History / Comment(s): Mother had a CVA General Exam - General Exam Comments Initial Comments: This is a well-developed well-nourished awake alert oriented 3 female Limitations: no limitations General appearance: alert, anxious, in distress Head exam: Present: atraumatic, normocephalic, normal inspection Eye exam: Present: normal appearance, PERRL, EOMI. Absent: scleral icterus, conjunctival injection, periorbital swelling ENT exam: Present: mucous membranes dry Neck exam: Present: normal inspection, full ROM, other. Absent: tenderness, me ningismus, lymphadenopathy Respiratory exam: Present: respiratory distress, wheezes, chest wall tenderness, accessory muscle use, decreased breath sounds (No stridor JVD or bruits). Absent: rales, rhonchi, stridor Cardiovascular Exam: Present: regular rate, normal rhythm, normal heart sounds. Absent: systolic murmur, diastolic murmur, rubs, gallop, clicks GI/Abdominal exam: Present: soft, normal bowel sounds. Absent: distended, tenderness, guarding, rebound, rigid Extremities exam: Present: normal inspection, full ROM, normal capillary refill. Absent: tenderness, pedal edema, joint swelling, calf tenderness Back exam: Present: normal inspection Neurological exam: Present: alert, oriented X3, CN II-XII intact Psychiatric exam: Present: normal affect, normal mood Skin exam: Present: warm, dry, intact, normal color. Absent: rash Course Vital Signs 02/18/20 02/18/20 02/18/20 15:53 16:37 16:47 Temperature 98.5 F Pulse Rate 84 78 76 Respiratory 24 Rate Blood Pressure 153/78 O2 Sat by Pulse 98 Oximetry 02/18/20 18:10 Temperature Pulse Rate 92 Respiratory 21 Rate Blood Pressure 217/97 O2 Sat by Pulse 97 Oximetry Medical Decision Making - Medical Decision Making Patient still not improving well the presentation is consistent with a COPD exacerbation I did discuss findings the patient and her family. Patient will be admitted Dr. Montoya/Minnie service with pulmonary consultation - Lab Data Result diagrams: 02/18/20 16:30 02/18/20 16:30 Lab Results 02/18/20 02/18/20 02/18/20 Range/Units 16:30 16:30 16:30 WBC 10.3 (3.8-10.6) k/uL RBC 4.48 (3.80-5.40) m/uL Hgb 11.8 (11.4-16.0) gm/dL Hct 36.9 (34.0-46.0) % MCV 82.3 (80.0-100.0) fL MCH 26.3 (25.0-35.0) pg MCHC 31.9 (31.0-37.0) g/dL RDW 15.0 (11.5-15.5) % Plt Count 352 (150-450) k/uL Neutrophils % 65 % Lymphocytes % 25 % Monocytes % 6 % Eosinophils % 2 % Basophils % 0 % Neutrophils # 6.6 (1.3-7.7) k/uL Lymphocytes # 2.6 (1.0-4.8) k/uL Monocytes # 0.6 (0-1.0) k/uL Eosinophils # 0.2 (0-0.7) k/uL Basophils # 0.0 (0-0.2) k/uL PT 9.6 (9.0-12.0) sec INR 0.9 (<1.2) APTT 23.7 (22.0-30.0) sec Sodium 136 L (137-145) mmol/L Potassium 5.3 H (3.5-5.1) mmol/L Chloride 103 (98-107) mmol/L Carbon Dioxide 25 (22-30) mmol/L Anion Gap 8 mmol/L BUN 19 H (7-17) mg/dL Creatinine 0.86 (0.52-1.04) mg/dL Est GFR (CKD-EPI)AfAm 73 (>60 ml/min/1.73 sqM) Est GFR (CKD-EPI)NonAf 64 (>60 ml/min/1.73 sqM) Glucose 145 H (74-99) mg/dL Plasma Lactic Acid [place] (0.7-2.0) mmol/L Calcium 9.5 (8.4-10.2) mg/dL Magnesium 1.9 (1.6-2.3) mg/dL Total Bilirubin 0.3 (0.2-1.3) mg/dL AST 22 (14-36) U/L ALT 18 (4-34) U/L Alkaline Phosphatase 91 (38-126) U/L Creatine Kinase 46 (30-135) U/L Troponin I (0.000-0.034) ng/mL NT-Pro-B Natriuret Pep pg/mL Total Protein 7.0 (6.3-8.2) g/dL Albumin 4.3 (3.5-5.0) g/dL Urine Color Urine Appearance (Clear) Urine pH (5.0-8.0) Ur Specific [place] (1.001-1.035) Urine Protein (Negative) Urine Glucose (UA) (Negative) Urine Ketones (Negative) Urine Blood (Negative) Urine Nitrite (Negative) Urine Bilirubin (Negative) Urine Urobilinogen (<2.0) mg/dL Ur Leukocyte Esterase (Negative) Urine RBC (0-5) /hpf Urine WBC (0-5) /hpf Urine Bacteria (None) /hpf 02/18/20 02/18/20 02/18/20 Range/Units 16:30 16:30 16:30 WBC (3.8-10.6) k/uL RBC (3.80-5.40) m/uL Hgb (11.4-16.0) gm/dL Hct (34.0-46.0) % MCV (80.0-100.0) fL MCH (25.0-35.0) pg MCHC (31.0-37.0) g/dL RDW (11.5-15.5) % Plt Count (150-450) k/uL Neutrophils % % Lymphocytes % % Monocytes % % Eosinophils % % Basophils % % Neutrophils # (1.3-7.7) k/uL Lymphocytes # (1.0-4.8) k/uL Monocytes # (0-1.0) k/uL Eosinophils # (0-0.7) k/uL Basophils # (0-0.2) k/uL PT (9.0-12.0) sec INR (<1.2) APTT (22.0-30.0) sec Sodium (137-145) mmol/L Potassium (3.5-5.1) mmol/L Chloride (98-107) mmol/L Carbon Dioxide (22-30) mmol/L Anion Gap mmol/L BUN (7-17) mg/dL Creatinine (0.52-1.04) mg/dL Est GFR (CKD-EPI)AfAm (>60 ml/min/1.73 sqM) Est GFR (CKD-EPI)NonAf (>60 ml/min/1.73 sqM) Glucose (74-99) mg/dL Plasma Lactic Acid [place] 1.5 (0.7-2.0) mmol/L Calcium (8.4-10.2) mg/dL Magnesium (1.6-2.3) mg/dL Total Bilirubin (0.2-1.3) mg/dL AST (14-36) U/L ALT (4-34) U/L Alkaline Phosphatase (38-126) U/L Creatine Kinase (30-135) U/L Troponin I <0.012 (0.000-0.034) ng/mL NT-Pro-B Natriuret Pep 1950 pg/mL Total Protein (6.3-8.2) g/dL Albumin (3.5-5.0) g/dL Urine Color Urine Appearance (Clear) Urine pH (5.0-8.0) Ur Specific [place] (1.001-1.035) Urine Protein (Negative) Urine Glucose (UA) (Negative) Urine Ketones (Negative) Urine Blood (Negative) Urine Nitrite (Negative) Urine Bilirubin (Negative) Urine Urobilinogen (<2.0) mg/dL Ur Leukocyte Esterase (Negative) Urine RBC (0-5) /hpf Urine WBC (0-5) /hpf Urine Bacteria (None) /hpf 02/18/20 Range/Units 18:14 WBC (3.8-10.6) k/uL RBC (3.80-5.40) m/uL Hgb (11.4-16.0) gm/dL Hct (34.0-46.0) % MCV (80.0-100.0) fL MCH (25.0-35.0) pg MCHC (31.0-37.0) g/dL RDW (11.5-15.5) % Plt Count (150-450) k/uL Neutrophils % % Lymphocytes % % Monocytes % % Eosinophils % % Basophils % % Neutrophils # (1.3-7.7) k/uL Lymphocytes # (1.0-4.8) k/uL Monocytes # (0-1.0) k/uL Eosinophils # (0-0.7) k/uL Basophils # (0-0.2) k/uL PT (9.0-12.0) sec INR (<1.2) APTT (22.0-30.0) sec Sodium (137-145) mmol/L Potassium (3.5-5.1) mmol/L Chloride (98-107) mmol/L Carbon Dioxide (22-30) mmol/L Anion Gap mmol/L BUN (7-17) mg/dL Creatinine (0.52-1.04) mg/dL Est GFR (CKD-EPI)AfAm (>60 ml/min/1.73 sqM) Est GFR (CKD-EPI)NonAf (>60 ml/min/1.73 sqM) Glucose (74-99) mg/dL Plasma Lactic Acid [place] (0.7-2.0) mmol/L Calcium (8.4-10.2) mg/dL Magnesium (1.6-2.3) mg/dL Total Bilirubin (0.2-1.3) mg/dL AST (14-36) U/L ALT (4-34) U/L Alkaline Phosphatase (38-126) U/L Creatine Kinase (30-135) U/L Troponin I (0.000-0.034) ng/mL NT-Pro-B Natriuret Pep pg/mL Total Protein (6.3-8.2) g/dL Albumin (3.5-5.0) g/dL Urine Color Light Yellow Urine Appearance Clear (Clear) Urine pH 7.0 (5.0-8.0) Ur Specific [place] 1.005 (1.001-1.035) Urine Protein Negative (Negative) Urine Glucose (UA) Negative (Negative) Urine Ketones Negative (Negative) Urine Blood Trace H (Negative) Urine Nitrite Negative (Negative) Urine Bilirubin Negative (Negative) Urine Urobilinogen <2.0 (<2.0) mg/dL Ur Leukocyte Esterase Moderate H (Negative) Urine RBC 3 (0-5) /hpf Urine WBC 12 H (0-5) /hpf Urine Bacteria Many H (None) /hpf - EKG Data -: EKG Interpreted by Me EKG shows normal: sinus rhythm EKG Comments: Sinus rhythm of 76 [place] 164 QRS 64 QT since QTC 372/14 global QRS no acute ST-T wave changes - Radiology Data Radiology results: report reviewed (I did review the imaging and report no acute findings), image reviewed Disposition Clinical Impression: Acute exacerbation of chronic obstructive pulmonary disease, Failure of outpatient treatment Disposition: ADMITTED IP TO THIS [facility] Condition: Fair Referrals: Дмитрий Montoya MD [Primary Care Provider] - 1-2 days
[2020-02-18 16:49] LABS: Basophils % (A) 0 %; Eosinophils # (A) 0.2 k/uL (0-0.7); Eosinophils % (A) 2 %; HCT 36.9 % (34.0-46.0); HGB 11.8 gm/dL (11.4-16.0); Lymphocytes # (A) 2.6 k/uL (1.0-4.8); Lymphocytes % (A) 25 %; MCH 26.3 pg (25.0-35.0); MCHC 31.9 g/dL (31.0-37.0); MCV 82.3 fL (80.0-100.0); Mean Platelet Volume 7.1; Monocytes # (A) 0.6 k/uL (0-1.0); Monocytes % (A) 6 %; Neutrophils # (A) 6.6 k/uL (1.3-7.7); Neutrophils % (A) 65 %; Platelet Count 352 k/uL (150-450); RBC 4.48 m/uL (3.80-5.40); WBC 10.3 k/uL (3.8-10.6)
[2020-02-18 16:56] LABS: Potassium 5.3 mmol/L (3.5-5.1)
[2020-02-18 16:57] LABS: Albumin 4.3 g/dL (3.5-5.0); Calcium 9.5 mg/dL (8.4-10.2); Magnesium 1.9 mg/dL (1.6-2.3); Total Bilirubin 0.3 mg/dL (0.2-1.3)
[2020-02-18 16:58] LABS: INR 0.9 (<1.2); Partial Thromboplastin Time 23.7 sec (22.0-30.0); Prothrombin Time 9.6 sec (9.0-12.0)
--- NOTE | 2020-02-18 18:10 | XR ---
EXAMINATION TYPE: XR chest 2V DATE OF EXAM: 02/18/2020 COMPARISON: 08/16/2019 HISTORY: Difficulty breathing TECHNIQUE: 2 views FINDINGS: There is some pleural reaction and fluid at the lung bases. There is no gross heart failure . Heart is top normal in size. Thoracic aorta is atheromatous. There are chest leads. IMPRESSION: There is pleural reaction and fluid at the lung bases unchanged compared to old exam. No obvious heart failure.
[2020-02-18 18:25] LABS: Appearance,Urine Clear (Clear); Bacteria,Urine Many /hpf; Bilirubin,Urine Negative (Negative); Blood,Urine Trace (Negative); Color,Urine Light Yellow; Glucose,Urine (UA) Negative (Negative); Ketones,Urine Negative (Negative); Leukocyte Esterase,Urine Moderate (Negative); Nitrite,Urine Negative (Negative); Protein,Urine Negative (Negative); RBC,Urine 3 /hpf (0-5); Specific Gravity,Urine 1.005 (1.001-1.035); Urobilinogen,Urine <2.0 mg/dL (<2.0); WBC,Urine 12 /hpf (0-5)
[2020-02-18] MEDS ORDERED: METOPROLOL SUCCINATE (ER) 50 MG TAB.ER.24H PO STA (18:31)
[2020-02-18] MEDS ORDERED: NITROGLYCERIN SL TABS 0.4 MG TAB SUBLINGUAL PRN (18:39)
[2020-02-18] MEDS ORDERED: guaiFENesin 600 MG TABLET.ER PO PRN (18:39)
[2020-02-18] MEDS ORDERED: METOPROLOL TARTRATE 50 MG TAB PO STA (18:50)
[2020-02-18 20:23] LABS: Glucose,Whole Blood 233 mg/dL (75-99)
[2020-02-18] MEDS: IPRATROPIUM-ALBUTEROL 3 ML NEB INHALATION SCH (20:35)
[2020-02-18] MEDS: SYMBICORT 80-4.5 MCG INHALER INHALATION SCH (20:36)
[2020-02-18] MEDS: METOPROLOL TARTRATE 50 MG TAB PO SCH ×2 (21:20→22:05)
[2020-02-18] MEDS: INSULIN ASPART (NovoLOG) 100 UNIT/ML VIAL SQ SCH (21:49)
[2020-02-18] MEDS: AMITRIPTYLINE HCL 50 MG TAB PO SCH (21:49)
[2020-02-18] MEDS: APIXABAN 5 MG TAB PO SCH (21:49)
[2020-02-18] MEDS: ATORVASTATIN 40 MG TAB PO SCH (21:50)
[2020-02-18] MEDS: metFORMIN 500 MG TAB PO SCH (21:50)
[2020-02-18] MEDS: GABAPENTIN 400 MG CAP PO SCH (21:50)
[2020-02-19] MEDS: methylPREDNISolone SOD SUCCI 125 MG/2 ML VIAL IV SCH ×2 (00:34→05:49)
[2020-02-19] MEDS: IPRATROPIUM-ALBUTEROL 3 ML NEB INHALATION SCH ×7 (01:03→23:54)
[2020-02-19 05:53] LABS: Glucose,Whole Blood 184 mg/dL (75-99)
[2020-02-19] MEDS: LEVOTHYROXINE 50 MCG TAB PO SCH (05:56)
[2020-02-19 06:24] LABS: Calcium 8.7 mg/dL (8.4-10.2); Potassium 5.5 mmol/L (3.5-5.1)
[2020-02-19] MEDS ORDERED: FUROSEMIDE 10 MG/ML 10 ML VIAL IV STA (06:42)
[2020-02-19] MEDS: SYMBICORT 80-4.5 MCG INHALER INHALATION SCH (07:46)
[2020-02-19] MEDS: HYDROcodone/APAP 5-325MG 1 EACH TAB PO PRN ×2 (08:33→17:03)
[2020-02-19] MEDS: INSULIN ASPART (NovoLOG) 100 UNIT/ML VIAL SQ SCH ×4 (08:33→21:04)
[2020-02-19] MEDS ORDERED: FUROSEMIDE 40 MG TAB PO SCH (09:00)
[2020-02-19] MEDS ORDERED: CYANOCOBALAMIN 1,000 MCG/ML 1 ML VIAL SQ SCH (09:00)
[2020-02-19] MEDS ORDERED: METOPROLOL TARTRATE 50 MG TAB PO SCH (09:15)
[2020-02-19] MEDS ORDERED: IPRATROPIUM-ALBUTEROL 3 ML NEB INHALATION PRN (09:19)
[2020-02-19] MEDS: metFORMIN 500 MG TAB PO SCH ×2 (09:45→17:03)
[2020-02-19] MEDS: LINAGLIPTIN 5 MG TABLET PO SCH (09:45)
[2020-02-19] MEDS: lisinopriL 10 MG TAB PO SCH ×2 (09:47→20:40)
[2020-02-19] MEDS: METOPROLOL TARTRATE 50 MG TAB PO SCH ×2 (09:47→20:52)
[2020-02-19] MEDS: amLODIPine 5 MG TAB PO SCH (09:47)
[2020-02-19] MEDS: glipiZIDE 10 MG TAB PO SCH ×2 (09:47→17:55)
[2020-02-19] MEDS: APIXABAN 5 MG TAB PO SCH ×2 (09:47→20:40)
[2020-02-19] MEDS: GABAPENTIN 400 MG CAP PO SCH ×2 (09:48→20:39)
[2020-02-19] MEDS: PANTOPRAZOLE 40 MG TABLET PO SCH (09:48)
--- NOTE | 2020-02-19 11:56 | CONS ---
CONSULTATION PULMONARY/CRITICAL CARE CONSULTATION: DATE OF CONSULTATION: 02/19/2020 HISTORY OF PRESENT ILLNESS: This is an 84-year-old female with an established history of COPD. She apparently sees my partner Dr. Cramer in the office. She comes into the hospital on February 17 at 15:41 complaining of increasing shortness of breath for about 2 or 3 days prior to admission. Apparently it has been getting progressively worse despite taking her usual breathing medications. The patient states that she was not having any fever. There was no chest pain or chest discomfort. She really was not having much in the way of cough. There was no phlegm production. She actually denies any wheezing. She states that she does not lay flat in bed typically. This is nothing new for her. Again, she denies any nausea, vomiting, diarrhea and abdominal pain. She denies any genitourinary complaints. She is convinced that this is her COPD exacerbation. CURRENT MEDICATIONS: Reviewed. They include Lasix, nitroglycerin tablets, [place], metformin, Januvia, Elavil, vitamin B12, Neurontin, Synthroid, Glucotrol, Trelegy inhaler, Lipitor, Eliquis, metoprolol, Protonix, amlodipine, Mucinex, and prednisone. ALLERGIES: PENICILLIN. PAST MEDICAL HISTORY: Positive for CAD, chest pain, COPD, diabetes mellitus, GERD, hyperlipidemia, hypertension, osteoarthritis, and hypothyroidism. She also carries with her a diagnosis of right lower lobe pneumonia, peripheral neuropathy, hiatal hernia, degenerative joint disease, chronic low back pain, lower extremity edema, and cataracts. She does have also a prior history of previous myocardial infarction in June 2018. 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 SURGICAL HISTORY: Includes back surgery, joint replacement, lumbar laminectomy, bilateral knee replacement, open reduction and internal fixation bilateral ankles, cervical fusion, rotator cuff surgery, carpal tunnel release, breast lumpectomy on the left, and varicose vein stripping. SOCIAL HISTORY: Positive for previous tobacco use. She does not smoke currently. She denies any alcohol or illicit drug use. FAMILY HISTORY: Positive for father and mother both with cancer, as well as father with myocardial infarction and mother with CVA. REVIEW OF SYSTEMS: CONSTITUTIONAL: Weakness. NEUROLOGIC: Negative. HEENT: Negative. CARDIOVASCULAR: Negative. PULMONARY: Shortness of breath without cough, phlegm, wheezing, chest tightness, or any other pulmonary complaints. GI: Negative. : Negative. RHEUMATOLOGIC: Negative. IMMUNOLOGIC: Negative. ENDOCRINOLOGIC: Negative. DERMATOLOGIC: Negative. PHYSICAL EXAMINATION: Vital signs are reviewed temperature is 98.2, heart rate 70, respiratory rate 16, blood pressure 178/75, mean 109, 2 L saturation 99%. Appears in no acute distress. No conversational dyspnea, audible wheezing or use of accessory muscles. She actually looks quite stable. HEENT: Examination is grossly unremarkable. Nasal O2 in place. NECK: Supple. Full range of motion. No adenopathy. Neck veins are flat. CARDIOVASCULAR: Examination reveals regular rhythm and rate. S1, S2 normal. Heart rate 72 beats per minute. No murmur. Heart sounds are distant. LUNGS: A few scattered rhonchi. There are some bibasilar crackles. No wheezes. Breath sounds are equal bilaterally. ABDOMEN: Obese. Bowel sounds are heard. EXTREMITIES: Intact. Minimal edema. SKIN: Without rash. NEUROLOGIC: Examination is brief but nonfocal. LABS: Reviewed. White count 10.3, hemoglobin 11.8, hematocrit 36.9, platelet count normal. Sodium 137, potassium 5.5, chloride 108, CO2 24, anion gap is 5. BUN and creatinine were 21 and 0.82. The rest of the comprehensive metabolic profile is normal. N terminal proBNP is mildly elevated at 1950. It is only mildly elevated in somebody her age group. Her urine shows trace blood, moderate leukocyte esterase, 3 RBCs, 12 WBCs and many bacteria. The patient may in fact have a bladder infection, even though she did not complain of urinary symptoms. Microbiology is pending or negative. IMAGING: Chest x-ray from February 17 shows bilateral small pleural effusions. No infiltrate. CURRENT MEDICATIONS: Reviewed. ASSESSMENT: 1. Shortness of breath, likely related to underlying mild chronic obstructive pulmonary disease exacerbation and possibly a small component of fluid overload/congestive heart failure. 2. Possible urinary tract infection. 3. History of coronary artery disease. 4. History of angina. 5. History of diabetes mellitus with diabetic neuropathy. 6. Gastroesophageal reflux disease by history. 7. Hyperlipidemia. 8. Essential hypertension. 9. Degenerative joint disease. 10.Hypothyroidism. 11.Cataracts. 12.Previous episode of pneumonia. PLAN: The patient's medications are reviewed. Will make sure she is on appropriate medications for COPD. The patient's COPD exacerbation is mild at best. She may have a urinary tract infection. That should be treated. No additional recommendations are made. Please see my orders. Medications are reviewed. MMODL / IJN: [id number] /
[2020-02-19 12:02] LABS: Glucose,Whole Blood 210 mg/dL (75-99)
[2020-02-19 12:35] LABS: Potassium 5.5 mmol/L (3.5-5.1)
--- NOTE | 2020-02-19 14:33 | P.HPIM ---
History of Present Illness H&P Date: 02/19/20 Chief Complaint: Shortness of breath, worsening This is an 84-year-old female with history of CAD, angina, COPD, diabetes mellitus, gastroesophageal reflux disease, hypothyroidism, hypertension, anxiety, depression, presented to the ER with complaints of worsening shortness of breath 2 days.Denies chest pain. Denies cough , denies sputum production. Troponin negative 1. EKG reporting normal sinus rhythm. Denies fever, chills, sweats, nausea or vomiting. Denies abdominal pain. Chest x-ray reporting severe reaction and fluid at the lung bases unchanged compared on exam no obvious heart failure. Afebrile, normal WBC, sodium 137, potassium 5.5, BUN 21, creatinine 0.82. Magnesium 1.9. UA reporting many bacteria, APCs of 12, moderate leukocytes, negative nitrates. Urine culture pending. Received nebulized bronchodilators, IV steroids, IV push Lasix. Review of Systems ROS Statement: Those systems with pertinent positive or pertinent negative responses have been documented in the HPI. ROS Other: All systems not noted in ROS Statement are negative. Past Medical History Past Medical History: Coronary Artery Disease (CAD), Chest Pain / Angina, COPD, Diabetes Mellitus, GERD/Reflux, Hyperlipidemia, Hypertension, Osteoarthritis (OA), Thyroid Disorder Additional Past Medical History / Comment(s): R lower lobe pneumonia and exacerbation of her COPD. Pt refused heart catheterization. Other hx; NIDDM type II, bilateral peripheral neuropathy in feet, hiatal hernia, arthritis multiple joints, chronic low back pain, lower leg edema, cataracts removed bilaterally. Last Myocardial Infarction Date:: 06/17/18 History of Any Multi-Drug Resistant Organisms: ESBL Date of last positivie culture/infection: 09/06/17 MDRO Source:: ESBL URINE Past Surgical History: Back Surgery, Joint Replacement, Orthopedic Surgery Additional Past Surgical History / Comment(s): 07/29/15 lumbar laminectomy decompression fusion L3-4 and L5-S1 with cell saver, lumbar instrumentation removal L4-5, L4-L5 laminectomy, ZULY KNEE REPLACEMENTS,ORIF bilateral ANKLE, CERVICAL FUSION, zuly rotator cuff repair, surgery to zuly wrist carpal tunnel releases, pain procedures, L breast lumpectomy-benign, bilateral legs varicose vein stripping. Past Anesthesia/Blood Transfusion Reactions: No Reported Reaction Additional Past Anesthesia/Blood Transfusion Reaction / Comment(s): Pt states she has never received blood. Past Psychological History: Anxiety, Depression Additional Psychological History / Comment(s): Is and lives in the family home. 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 Known experience. No international travel. No animal expos ures. Stopped smoking 30 years ago no history of alcohol use Smoking Status: Former smoker Past Alcohol Use History: None Reported Additional Past Alcohol Use History / Comment(s): Pt started smoking in 1954 and quit in 1974. She was a 1.5 ppd smoker. Past Drug Use History: None Reported - Past Family History Father Brother(s) Family Medical History: Cancer Mother Sister(s) Family Medical History: Cancer Father Family Medical History: Myocardial Infarction ([place]) Additional Family Medical History / Comment(s): Father at 40 of a [place]. Mother Family Medical History: CVA/TIA Additional Family Medical History / Comment(s): Mother had a CVA Medications and Allergies Home Medications Medication Instructions Recorded Confirmed Type Furosemide [Lasix] 40 mg PO DAILY 11/14/13 02/18/20 History Nitroglycerin Sl Tabs [Nitrostat] 0.4 mg SUBLINGUAL Q5M PRN 07/20/15 02/18/20 History Atorvastatin Calcium [Lipitor] 40 mg PO HS #1 tab 08/04/15 02/18/20 Rx metFORMIN HCL 1,000 mg PO BID 02/20/18 02/18/20 History Cyanocobalamin [Vitamin B-12 1,000 mcg SQ Q30D 07/06/19 02/18/20 History Injection] Gabapentin [Neurontin] 400 mg PO BID 07/06/19 02/18/20 History Gabapentin [Neurontin] 800 mg PO HS 07/06/19 02/18/20 History Levothyroxine Sodium [Synthroid] 50 mcg PO DAILY 07/06/19 02/18/20 History glipiZIDE [Glucotrol] 10 mg PO BID-W/MEALS 07/06/19 02/18/20 History HYDROcodone/APAP 10-325MG [[place] 1 tab PO Q6H PRN 02/18/20 02/18/20 History 10-325] Metoprolol Tartrate [Lopressor] 50 mg PO BID 02/18/20 02/18/20 History Umeclidinium Brm/Vilanterol Tr 1 puff INHALATION DAILY 02/18/20 02/19/20 History [Anoro Ellipta 62.5-25 Mcg INH] lisinopriL [Zestril] 10 mg PO BID 02/18/20 02/18/20 History sitaGLIPtin [Januvia] 100 mg PO QAM 02/18/20 02/18/20 History Albuterol Nebulized [Ventolin 2.5 mg INHALATION RT-QID PRN 02/19/20 02/19/20 History Nebulized] Allergies Allergy/AdvReac Type Severity Reaction Status Date / Time Penicillins Allergy Rash/Hives Verified 02/18/20 19:19 Physical Exam Vitals: Vital Signs Temp Pulse Pulse Resp BP BP Pulse Ox 02/19/20 08:23 98.2 F 80 16 178/75 99 02/19/20 07:56 68 02/19/20 07:46 66 02/19/20 05:23 68 02/19/20 05:11 70 02/19/20 03:35 97.8 F 66 14 141/63 97 02/19/20 03:00 14 02/19/20 01:13 72 02/19/20 01:03 70 02/18/20 23:10 66 13 194/77 96 02/18/20 21:00 13 02/18/20 20:00 97.7 F 86 16 226/98 95 02/18/20 19:22 98.4 F 02/18/20 19:00 81 02/18/20 18:54 79 20 180/62 100 02/18/20 18:48 79 02/18/20 18:37 203/78 02/18/20 18:10 92 21 217/97 97 02/18/20 16:47 76 02/18/20 16:37 78 02/18/20 15:53 98.5 F 84 24 153/78 98 Intake and Output 02/18/20 02/19/20 02/19/20 22:59 06:59 14:59 Intake Total 480 Balance 480 Intake: Oral 480 Other: Voiding Method Bedside Commode Bedside Commode # Voids 1 Weight 114.305 kg PHYSICAL EXAM: VITAL SIGNS: As above GENERAL: Sitting up in bed, no acute distress HEENT: Conjunctivae normal. eyes normal. Oral mucosa moist. NECK: No JVD. No thyroid enlargement. No LNs CARDIOVASCULAR: S1, S2 regular. Systolic murmur. RESPIRATION: Coarse, diminished, limited air entry, occasional rhonchi. No wheezing ABDOMEN: Soft, nontender . No guarding. no masses palpable. No ascites, No hepatosplenomegaly.Bowel sounds heard. LEGS: Minimal edema. No clubbing, no cyanosis. Nontender. PSYCHIATRY: Alert and oriented X3, mood and affect normal. NERVOUS SYSTEM: Cranial N 2-12 grossly normal. Moves all 4 limbs. Diffuse weakness No focal deficits. Strength and sensation grossly intact.. Skin: no rash Lymphatic system. No LN neck axilla. Results CBC & Chem 7: 02/18/20 16:30 02/19/20 11:24 Labs: Abnormal Lab Results - Last 24 Hours (Table) 02/18/20 02/18/20 02/18/20 Range/Units 16:30 18:14 20:12 Sodium 136 L (137-145) mmol/L Potassium 5.3 H (3.5-5.1) mmol/L Chloride (98-107) mmol/L BUN 19 H (7-17) mg/dL Glucose 145 H (74-99) mg/dL POC Glucose (mg/dL) 233 H (75-99) mg/dL Urine Blood Trace H (Negative) Ur Leukocyte Esterase Moderate H (Negative) Urine WBC 12 H (0-5) /hpf Urine Bacteria Many H (None) /hpf 02/19/20 02/19/20 Range/Units 05:35 05:51 Sodium (137-145) mmol/L Potassium 5.5 H (3.5-5.1) mmol/L Chloride 108 H (98-107) mmol/L BUN 21 H (7-17) mg/dL Glucose 160 H (74-99) mg/dL POC Glucose (mg/dL) 184 H (75-99) mg/dL Urine Blood (Negative) Ur Leukocyte Esterase (Negative) Urine WBC (0-5) /hpf Urine Bacteria (None) /hpf Microbiology - Last 24 Hours (Table) 02/18/20 18:14 Urine Culture - Preliminary Urine,Voided Thrombosis Risk Factor Assmnt - Choose All That Apply Each Factor Represents 1 point: Abnormal pulmonary function (COPD), Obesity (BMI >25), Swollen legs (current) Each Risk Factor Represents 3 Points: Age 75 years or older Thrombosis Risk Factor Assessment Total Risk Factor Score: 6 Thrombosis Risk Factor Assessment Level: High Risk Assessment and Plan Assessment: Acute Hypoxic respiratory failure secondary to acute COPD exacerbation Possible acute UTI, culture pending chronic diastolic CHF ,EF 50-55% History of Paroxysmal Atrial fibrillation Chronic renal failure stage III Hyperkalemia secondary to the above CAD, history of angina Diabetes mellitus, hyperglycemic on admission Hypertension Gastroesophageal reflux disease Osteoarthritis Hypothyroidism Anxiety Depression Former nicotine dependence Pulmonary hypertension Moderate mitral and tricuspid regurgitation Plan: Continue on current medication regime ,monitoring and symptomatic treatment. Maintain nebulized bronchodilators, IV steroids, IV push Lasix. Home meds have been reviewed and resumed accordingly. GI prophylaxis in place. Pulmonary consulted, recommendations pending. The impression and plan of care has been dictated as directed. : I performed a history and examination of this patient, discussed the same with the dictator. I agree with the dictator's note ,documented as a scribe. Any additional findings or plans will be noted.
[2020-02-19 16:55] LABS: Glucose,Whole Blood 103 mg/dL (75-99)
[2020-02-19] MEDS: SYMBICORT 160-4.5 MCG INHALER INHALATION SCH (19:20)
[2020-02-19] MEDS: ATORVASTATIN 40 MG TAB PO SCH (20:40)
[2020-02-19] MEDS: AMITRIPTYLINE HCL 50 MG TAB PO SCH (20:53)
[2020-02-19 20:56] LABS: Glucose,Whole Blood 179 mg/dL (75-99)
[2020-02-19] MEDS: LEVOFLOXACIN 500 MG TAB PO SCH (23:44)
[2020-02-20 02:20] VITALS: RESP 18
[2020-02-20] MEDS: IPRATROPIUM-ALBUTEROL 3 ML NEB INHALATION SCH ×3 (04:36→12:01)
[2020-02-20] MEDS: LEVOTHYROXINE 50 MCG TAB PO SCH (05:44)
[2020-02-20 05:55] LABS: Glucose,Whole Blood 133 mg/dL (75-99)
[2020-02-20 06:50] LABS: Basophils % (A) 0 %; Eosinophils # (A) 0.1 k/uL (0-0.7); Eosinophils % (A) 1 %; HCT 33.1 % (34.0-46.0); HGB 10.1 gm/dL (11.4-16.0); Hypochromasia Moderate; Lymphocytes # (A) 3.8 k/uL (1.0-4.8); Lymphocytes % (A) 32 %; MCH 26.2 pg (25.0-35.0); MCHC 30.6 g/dL (31.0-37.0); MCV 85.8 fL (80.0-100.0); Mean Platelet Volume 7.2; Monocytes # (A) 0.8 k/uL (0-1.0); Monocytes % (A) 7 %; Neutrophils # (A) 6.8 k/uL (1.3-7.7); Neutrophils % (A) 57 %; Platelet Count 365 k/uL (150-450); RBC 3.86 m/uL (3.80-5.40); RDW 15.2 % (11.5-15.5); WBC 11.8 k/uL (3.8-10.6)
[2020-02-20 07:01] LABS: Potassium 4.9 mmol/L (3.5-5.1)
[2020-02-20 07:02] LABS: Calcium 8.7 mg/dL (8.4-10.2)
[2020-02-20] MEDS: SYMBICORT 160-4.5 MCG INHALER INHALATION SCH (07:59)
[2020-02-20 08:10] VITALS: BP 130/62; TEMP 97.9
[2020-02-20] MEDS: INSULIN ASPART (NovoLOG) 100 UNIT/ML VIAL SQ SCH ×2 (08:10→11:40)
[2020-02-20] MEDS: METOPROLOL TARTRATE 50 MG TAB PO SCH (08:10)
[2020-02-20] MEDS: amLODIPine 5 MG TAB PO SCH (08:11)
[2020-02-20] MEDS: GABAPENTIN 400 MG CAP PO SCH (08:11)
[2020-02-20] MEDS: lisinopriL 10 MG TAB PO SCH (08:11)
[2020-02-20] MEDS: PANTOPRAZOLE 40 MG TABLET PO SCH (08:11)
[2020-02-20] MEDS: APIXABAN 5 MG TAB PO SCH (08:11)
[2020-02-20] MEDS: metFORMIN 500 MG TAB PO SCH (08:11)
[2020-02-20] MEDS: LEVOFLOXACIN 500 MG TAB PO SCH (08:11)
[2020-02-20] MEDS: LINAGLIPTIN 5 MG TABLET PO SCH (08:12)
[2020-02-20] MEDS: glipiZIDE 10 MG TAB PO SCH (08:12)
[2020-02-20] MEDS ORDERED: FUROSEMIDE 10 MG/ML 4 ML VIAL IV SCH (09:00)
[2020-02-20] MEDS ORDERED: predniSONE 20 MG TAB PO SCH (09:00)
--- NOTE | 2020-02-20 10:39 | P.PN ---
Subjective Progress Note Date: 02/20/20 Principal diagnosis: Increased shortness of breath On 02/20/2020 patient seen in follow-up in the observation unit. She is awake and alert, resting comfortably in bed, urine antigens of oxygen with pulse ox of 96%, hemodynamically stable, afebrile. She states her breathing is improving, lung sounds are clear. Today's labs have been reviewed, showing blood cell count of 11.8, hemoglobin of 10.1, sodium was 135, and the rest of electrolytes were within normal limits, B1 is 31 creatinine 0.91. Urine culture shows gram- negative bacilli, blood culture showed no growth, ration is on Levaquin for antibiotic coverage, Objective - Vital Signs Vital signs: Vital Signs Temp 97.9 F 02/20/20 08:05 Pulse 74 02/20/20 08:11 Resp 18 02/20/20 08:05 BP 130/62 02/20/20 08:05 Pulse Ox 96 02/20/20 08:05 Intake & Output 02/19/20 02/20/20 02/20/20 18:59 06:59 18:59 Intake Total 480 250 Balance 480 250 Weight 111.584 kg Intake: Oral 480 250 Other: Voiding Method Bedside Commode Bedside Commode Bedside Commode # Voids 2 1 1 - Exam GENERAL EXAM: Alert, very pleasant, 84-year-old white female, in 2 L of oxygen and pulse ox of 96%, comfortable in no apparent distress. HEAD: Normocephalic/atraumatic. EYES: Normal reaction of pupils, equal size. Conjunctiva pink, sclera white. NOSE: Clear with pink turbinates. THROAT: No erythema or exudates. NECK: No masses, no JVD, no thyroid enlargement, no adenopathy. CHEST: No chest wall deformity. Symmetrical expansion. LUNGS: Equal air entry with no crackles, wheeze, rhonchi or dullness. CVS: Regular rate and rhythm, normal S1 and S2, no gallops, no murmurs, no rubs ABDOMEN: Soft, nontender. No hepatosplenomegaly, normal bowel sounds, no guarding or rigidity. EXTREMITIES: No clubbing, no edema, no cyanosis, 2+ pulses and upper and lower extremities. MUSCULOSKELETAL: Muscle strength and tone normal. SPINE: No scoliosis or deformity SKIN: No rashes CENTRAL NERVOUS SYSTEM: Alert and oriented -3. No focal deficits, tone is normal in all 4 extremities. PSYCHIATRIC: Alert and oriented -3. Appropriate affect. Intact judgment and insight. - Labs CBC & Chem 7: 02/20/20 06:23 02/20/20 06:23 Labs: Abnormal Lab Results - Last 24 Hours (Table) 02/19/20 02/19/20 02/19/20 Range/Units 11:24 12:01 16:16 WBC (3.8-10.6) k/uL Hgb (11.4-16.0) gm/dL Hct (34.0-46.0) % MCHC (31.0-37.0) g/dL Sodium (137-145) mmol/L Potassium 5.5 H 5.3 H (3.5-5.1) mmol/L BUN 25 H (7-17) mg/dL Glucose 201 H (74-99) mg/dL POC Glucose (mg/dL) 210 H (75-99) mg/dL 02/19/20 02/19/20 02/20/20 Range/Units 16:54 20:55 05:54 WBC (3.8-10.6) k/uL Hgb (11.4-16.0) gm/dL Hct (34.0-46.0) % MCHC (31.0-37.0) g/dL Sodium (137-145) mmol/L Potassium (3.5-5.1) mmol/L BUN (7-17) mg/dL Glucose (74-99) mg/dL POC Glucose (mg/dL) 103 H 179 H 133 H (75-99) mg/dL 02/20/20 02/20/20 Range/Units 06:23 06:23 WBC 11.8 H (3.8-10.6) k/uL Hgb 10.1 L (11.4-16.0) gm/dL Hct 33.1 L (34.0-46.0) % MCHC 30.6 L (31.0-37.0) g/dL Sodium 135 L (137-145) mmol/L Potassium (3.5-5.1) mmol/L BUN 31 H (7-17) mg/dL Glucose 121 H (74-99) mg/dL POC Glucose (mg/dL) (75-99) mg/dL Microbiology - Last 24 Hours (Table) 02/18/20 18:14 Urine Culture - Preliminary Urine,Voided Gram Neg Bacilli 02/18/20 16:31 Blood Culture - Preliminary Blood No Growth after 24 hours Assessment and Plan Plan: Assessment: #1. Shortness of breath related to underlying mild chronic obstructive pulmonary disease exacerbated by a small component of fluid overload/congestive heart failure #2. Gram-negative urinary tract infection, final cultures pending, Gram stain showed gram-negative rods #3. History of coronary artery disease #4. History of angina #5. History of diabetes mellitus with diabetic neuropathy #6. GERD/reflux #7. Hyperlipidemia #8. Essential hypertension #9. DJD #10. Hypothyroidism #11. Cataracts #12. Previous episode of pneumonia Plan: Patient is breathing easier, continue with oral steroids, nebulized bronchodilators. She is covered with antibiotics, no significant pulmonary congestion, patient does have a urinary tract infection, cultures pending, vital signs are stable, improving from pulmonary perspective, she could be considered for discharge home today on oral antibiotic, she'll need outpatient follow-up with Dr. Vaz in the office in 7-10 days I performed a history & physical examination of the patient and discussed their management with my nurse practitioner, Krystle Warner. I reviewed the nurse practitioner's note and agree with the documented findings and plan of care. Lung sounds are positive for diminished and clear. The findings and the impression was discussed with the patient. I attest to the documentation by the nurse practitioner. Time with Patient: Less than 30
[2020-02-20 11:30] LABS: Glucose,Whole Blood 121 mg/dL (75-99)
--- NOTE | 2020-02-20 12:47 | P.DS ---
Providers Date of admission: 02/19/20 10:33 Expected date of discharge: 02/20/20 Attending physician: Дмитрий Montoya Consults: 02/18/20 18:36 Consult Physician Routine Consulting Provider: Cayetano Cramer Consult Reason/Comments: COPD exacerbation Do you want consulting provider notified?: Yes Primary care physician: Дмитрий Montoya Hospital Course: Final Diagnoses: Acute Hypoxic respiratory failure secondary to acute COPD exacerbation acute UTI, gram-negative bacilli, final results to PCP chronic diastolic CHF ,EF 50-55% History of Paroxysmal Atrial fibrillation Chronic renal failure stage III Hyperkalemia secondary to the above, resolved CAD, history of angina Diabetes mellitus, hyperglycemic on admission Hypertension Gastroesophageal reflux disease Osteoarthritis Hypothyroidism Anxiety Depression Former nicotine dependence Pulmonary hypertension Moderate mitral and tricuspid regurgitation Hospital course:This is an 84-year-old female with history of CAD, angina, COPD, diabetes mellitus, gastroesophageal reflux disease, hypothyroidism, hypertension, anxiety, depression, presented to the ER with complaints of worsening shortness of breath 2 days.Denies chest pain. Denies cough , denies sputum production. Troponin negative 1. EKG reporting normal sinus rhythm. Denies fever, chills, sweats, nausea or vomiting. Denies abdominal pain. Chest x-ray reporting severe reaction and fluid at the lung bases unchanged compared on exam no obvious heart failure. Afebrile, normal WBC, sodium 137, potassium 5.5, BUN 21, creatinine 0.82. Magnesium 1.9. UA reporting many bacteria, APCs of 12, moderate leukocytes, negative nitrates. Urine culture pending. Received nebulized bronchodilators, IV steroids, IV push Lasix. Significant clinical improvement. Cleared by pulmonary for discharge. Urine culture reporting greater than 100,000 colonies gram-negative bacilli, antibiotics initiated. Final culture /sensitivity results to be faxed to PCP. Patient will be discharged home in stable condition with guarded prognosis. The impression and plan of care has been dictated as directed. : I performed a history and examination of this patient, discussed the same with the dictator. I agree with the dictator's note ,documented as a scribe. Any additional findings or plans will be noted. Patient Condition at Discharge: Stable Plan - Discharge Summary New Discharge Prescriptions: New Levofloxacin [Levaquin] 500 mg PO DAILY #5 tab guaiFENesin [Mucinex] 600 mg PO Q12HR PRN tablet.er PRN Reason: Congestion amLODIPine [Norvasc] 5 mg PO DAILY #30 tab Apixaban [Eliquis] 5 mg PO BID tab Pantoprazole [Protonix] 40 mg PO AC-BRKFST #30 tablet.dr predniSONE 10 mg PO DIRECTED #30 tab Continue Furosemide [Lasix] 40 mg PO DAILY Nitroglycerin Sl Tabs [Nitrostat] 0.4 mg SUBLINGUAL Q5M PRN PRN Reason: Chest Pain Atorvastatin Calcium [Lipitor] 40 mg PO HS #1 tab metFORMIN HCL 1,000 mg PO BID Gabapentin [Neurontin] 800 mg PO HS Gabapentin [Neurontin] 400 mg PO BID Levothyroxine Sodium [Synthroid] 50 mcg PO DAILY Cyanocobalamin [Vitamin B-12 Injection] 1,000 mcg SQ Q30D glipiZIDE [Glucotrol] 10 mg PO BID-W/MEALS sitaGLIPtin [Januvia] 100 mg PO QAM lisinopriL [Zestril] 10 mg PO BID HYDROcodone/APAP 10-325MG [[place] 10-325] 1 tab PO Q6H PRN PRN Reason: Pain Umeclidinium Brm/Vilanterol Tr [Anoro Ellipta 62.5-25 Mcg INH] 1 puff INHALATION DAILY Albuterol Nebulized [Ventolin Nebulized] 2.5 mg INHALATION RT-QID PRN PRN Reason: Shortness Of Breath Changed Metoprolol Tartrate [Lopressor] 100 mg PO BID #120 tab Discharge Medication List Furosemide [Lasix] 40 mg PO DAILY 11/14/13 [History] Nitroglycerin Sl Tabs [Nitrostat] 0.4 mg SUBLINGUAL Q5M PRN 07/20/15 [History] Atorvastatin Calcium [Lipitor] 40 mg PO HS #1 tab 08/04/15 [Rx] metFORMIN HCL 1,000 mg PO BID 02/20/18 [History] Cyanocobalamin [Vitamin B-12 Injection] 1,000 mcg SQ Q30D 07/06/19 [History] Gabapentin [Neurontin] 400 mg PO BID 07/06/19 [History] Gabapentin [Neurontin] 800 mg PO HS 07/06/19 [History] Levothyroxine Sodium [Synthroid] 50 mcg PO DAILY 07/06/19 [History] glipiZIDE [Glucotrol] 10 mg PO BID-W/MEALS 07/06/19 [History] HYDROcodone/APAP 10-325MG [[place] 10-325] 1 tab PO Q6H PRN 02/18/20 [History] Umeclidinium Brm/Vilanterol Tr [Anoro Ellipta 62.5-25 Mcg INH] 1 puff INHALATION DAILY 02/18/20 [History] lisinopriL [Zestril] 10 mg PO BID 02/18/20 [History] sitaGLIPtin [Januvia] 100 mg PO QAM 02/18/20 [History] Albuterol Nebulized [Ventolin Nebulized] 2.5 mg INHALATION RT-QID PRN 02/19/20 [History] Apixaban [Eliquis] 5 mg PO BID tab 02/20/20 [Rx] Levofloxacin [Levaquin] 500 mg PO DAILY #5 tab 02/20/20 [Rx] Metoprolol Tartrate [Lopressor] 100 mg PO BID #120 tab 02/20/20 [Rx] Pantoprazole [Protonix] 40 mg PO AC-BRKFST #30 tablet.dr 02/20/20 [Rx] amLODIPine [Norvasc] 5 mg PO DAILY #30 tab 02/20/20 [Rx] guaiFENesin [Mucinex] 600 mg PO Q12HR PRN tablet.er 02/20/20 [Rx] predniSONE 10 mg PO DIRECTED #30 tab 02/20/20 [Rx] Follow up Appointment(s)/Referral(s): Cayetano Cramer MD [STAFF PHYSICIAN] - 1 Week [facility], [NON-STAFF] - 1-2 Days Дмитрий Montoya MD [Primary Care Provider] - 3 Days Ambulatory/Diagnostic Orders: Complete Blood Count w/diff [LAB.AMB] Time Frame: 3 Days, Location: None Selected Activity/Diet/Wound Care/Special Instructions: O2 sat on room air after ambulation pending Final urine culture results to be faxed to PCP
[2020-02-20 15:02] VITALS: PULSE 91
[2020-02-21] MEDS ORDERED: LEVOFLOXACIN 250 MG TAB PO SCH (09:00)
--- NOTE | 2020-02-21 14:57 | CDI ---
Documentation Clarification Form Date: 02/21/20 From: Yeny Mccall Phone: If you have a question about this query, please contact Richa Traylor Land Leveler at [phone] between 8am and 5pm. Admit Date: Discharge Date: Patient Name: Visit Number: ATTENTION: The Clinical Documentation Specialists (CDI) and [facility] Coding Staff appreciate your assistance in clarifying documentation. Please respond to the clarification below the line at the bottom and electronically sign. The CDI & [facility] Coding staff will review the response and follow-up if needed. Please note: Queries are made part of the Legal Health Record. If you have any questions, please contact the author of this message via ITS. Dear Dr. Montoya Your patient has a documented diagnosis of acute hypoxic respiratory failure - which may lack sufficient clinical evidence/support. History/Risk Factors: COPD with exacerbation, chronic systolic CHF Clinical Indicators: Respiratory distress, wheezes, chest wall tenderness, accessory muscle use, decreased breath sounds. Tobacco Use: History of cigarette smoking Home Oxygen: none Vital signs: T. 98.5, P. 84, R. 24, BP 153/78 Pulse Oximetry: 98% on room air, later on day of admission 95% on room air, 02/19 89% with exercise Lung/breathing assessment: In the ED: respiratory distress, wheezes, chest wall tenderness, accessory muscle use, decreased breath sounds Treatment: Breathing tx: Duoneb inhalation tx, O2: 2 lpm per nasal cannula Based on the clinical evidence and your professional judgment, do you feel acute hypoxic respiratory failure is a valid diagnosis? Yes, acute hypoxic respiratory failure present/active during this admission as evidence by (additional clinical support): ------>>>>No, acute hypoxic respiratory failure was ruled out. Other (please specify diagnosis) Unable to determine STACYD
== END 2020-02-20 15:39 | disposition home health service (06) ==
LOC: EC 15:41 → 1SOBS 18:36 → INTOOBSV 02-19 10:33 → OBSVTOIN 02-19 10:33 → UNDODISIN 02-20 15:39
PROVIDERS: ADMIT Family Medicine; ATTEND Family Medicine
DX: J44.1 Chronic obstructive pulmonary disease with (acute) exacerbation (principal); J96.01 Acute respiratory failure with hypoxia; I13.0 Hypertensive heart and chronic kidney disease with heart failure and stage 1 through stage 4 chronic kidney disease, or unspecified chronic kidney disease; I50.32 Chronic diastolic (congestive) heart failure; N39.0 Urinary tract infection, site not specified; I27.20 Pulmonary hypertension, unspecified; N18.3 Chronic kidney disease, stage 3 (moderate); E11.22 Type 2 diabetes mellitus with diabetic chronic kidney disease; E11.42 Type 2 diabetes mellitus with diabetic polyneuropathy; I48.0 Paroxysmal atrial fibrillation; I25.10 Atherosclerotic heart disease of native coronary artery without angina pectoris; K21.9 Gastro-esophageal reflux disease without esophagitis; E03.9 Hypothyroidism, unspecified; E11.65 Type 2 diabetes mellitus with hyperglycemia; Z20.828 Contact with and (suspected) exposure to other viral communicable diseases; E78.5 Hyperlipidemia, unspecified; E87.5 Hyperkalemia; F32.9 Major depressive disorder, single episode, unspecified; F41.9 Anxiety disorder, unspecified; I08.1 Rheumatic disorders of both mitral and tricuspid valves; M15.9 Polyosteoarthritis, unspecified; G89.29 Other chronic pain; M54.5 Low back pain; K44.9 Diaphragmatic hernia without obstruction or gangrene; B96.89 Other specified bacterial agents as the cause of diseases classified elsewhere; Z79.01 Long term (current) use of anticoagulants; E66.9 Obesity, unspecified; Z68.41 Body mass index [BMI] 40.0-44.9, adult; Z79.51 Long term (current) use of inhaled steroids; Z79.891 Long term (current) use of opiate analgesic; Z79.84 Long term (current) use of oral hypoglycemic drugs; Z79.890 Hormone replacement therapy; Z79.899 Other long term (current) drug therapy; Z79.52 Long term (current) use of systemic steroids; Z86.19 Personal history of other infectious and parasitic diseases; Z96.653 Presence of artificial knee joint, bilateral; Z88.0 Allergy status to penicillin; Z87.01 Personal history of pneumonia (recurrent); Z16.24 Resistance to multiple antibiotics; I25.2 Old myocardial infarction; Z87.891 Personal history of nicotine dependence; Z98.42 Cataract extraction status, left eye; Z98.41 Cataract extraction status, right eye; Z98.890 Other specified postprocedural states; Z82.3 Family history of stroke; Z82.49 Family history of ischemic heart disease and other diseases of the circulatory system; Z80.9 Family history of malignant neoplasm, unspecified
CPT/HCPCS: 96361 ×3; 96375; 96376 ×2; 96374; 99285; 36415; 94640 ×6; 93005; 97161; 97166; 83880; 80053; 80048 ×2; 82550; 83605; 83735; 84132; 84484; 85025 ×2; 85610; 85730; 81001; 87040; 87086; 87077; 87186; 71046; G0378 ×3; U0003; J3420; J1940 ×2; J2930 ×2; J7512

== ENCOUNTER → 2020-02-23 | Outpatient (CLI) | payer MEDICARE ==
[2020-02-23 14:35] LABS: Basophils % (A) 0 %; Eosinophils % (A) 0 %; HCT 36.7 % (34.0-46.0); HGB 11.4 gm/dL (11.4-16.0); Hypochromasia Slight; Lymphocytes # (A) 1.7 k/uL (1.0-4.8); Lymphocytes % (A) 16 %; MCH 26.1 pg (25.0-35.0); MCHC 30.9 g/dL (31.0-37.0); MCV 84.4 fL (80.0-100.0); Mean Platelet Volume 7.2; Monocytes # (A) 0.3 k/uL (0-1.0); Monocytes % (A) 3 %; Neutrophils # (A) 8.7 k/uL (1.3-7.7); Neutrophils % (A) 80 %; Platelet Count 441 k/uL (150-450); RBC 4.35 m/uL (3.80-5.40); RDW 15.1 % (11.5-15.5); WBC 10.8 k/uL (3.8-10.6)
[2020-02-23 19:39] LABS: African American GFR (CKD) 54.1 (60.0-200.0); Anion Gap 11.7 mmol/L (4.00-12.00); BUN/Creat Ratio 36.36 Ratio (12.00-20.00); Carbon Dioxide 22.3 mmol/L (21.6-31.8); Non-African American GFR(CKD) 46.7 (60.0-200.0); Potassium 5.6 mmol/L (3.5-5.5)
== END | disposition home or self-care (01) ==
LOC: LABWHC1 11:37
PROVIDERS: ATTEND Nurse Practitioner
DX: N39.0 Urinary tract infection, site not specified (principal)
CPT/HCPCS: 36415; 80048; 85025

== ENCOUNTER → 2020-09-03 | Outpatient (CLI) | payer MEDICARE ==
--- NOTE | 2020-09-03 15:17 | XR ---
Cervical spine HISTORY: Radiculopathy 5 views of the cervical spine Correlation to prior exam 02/25/2018 The postop changes are again noted and are stable. Bone mineralization is somewhat reduced. Multileve l foraminal encroachment is present at the surgical site C3-4, C4-5 on the right. There is anterolist hesis grade 1 C2-3 with associated loss of disc height as on prior exam, loss of disc height also pre sent C3-4 and C6-7, C7-T1 not included on exam. Patient is edentulous. Cervical vertebral bodies show preserved height. Prevertebral soft tissues show abnormal thickening with some anterior bowing of th e tracheal air column, there is carotid artery calcification present. Aorta is dense. Lung apices are normal. IMPRESSION: Postop changes. Prevertebral soft tissues are abnormally thickened, consider CT imaging f or additional evaluation. Degenerative disc disease, multilevel facet foraminal encroachment, anterol isthesis C2-3. Additional findings above.
--- NOTE | 2020-09-03 15:34 | XR ---
Lumbosacral spine HISTORY: Radiculopathy 6 views of lumbosacral spine Relationship prior exam 02/11/2020 Postop changes are again noted at the lumbosacral junction status post posterior fusion at L3-4, L5-S 1, there is stable alignment. Intervertebral spacing block noted at L4-5 as on prior exam. Alignment is stable. Loss of disc height present at L3-4, L5-S1, loss of disc height L1-2 and T12-L1 with assoc iated vacuum phenomenon, minimal retrolisthesis grade 1 at L1 to. There are dense vascular calcificat ions. Bone mineralization is reduced. Spinal curvature may be positional. Surgical clips present in t he right upper quadrant. Dense atherosclerotic vascular calcifications are present. IMPRESSION: Stable exam, degenerative disc disease, postop changes, osteopenia.
== END ==
LOC: RADXRMAIN 10:02
PROVIDERS: ATTEND Family Medicine
DX: M47.22 Other spondylosis with radiculopathy, cervical region (principal); M99.71 Connective tissue and disc stenosis of intervertebral foramina of cervical region; M43.12 Spondylolisthesis, cervical region; M47.27 Other spondylosis with radiculopathy, lumbosacral region; M85.88 Other specified disorders of bone density and structure, other site
CPT/HCPCS: 72050; 72110

== ENCOUNTER → 2020-10-02 | Outpatient (CLI) | payer MEDICARE | END | disposition home or self-care (01) | LOC: RADMRIMAIN 08:28 | PROVIDERS: ATTEND Family Medicine | DX: M54.5 Low back pain (principal); M43.16 Spondylolisthesis, lumbar region; Z98.890 Other specified postprocedural states ==

== ENCOUNTER → 2020-12-29 | Outpatient (CLI) | payer MEDICARE ==
[2020-12-29 09:48] VITALS: BP 137/64; PULSE 73; RESP 20; TEMP 98.5
--- NOTE | 2020-12-29 10:14 | P.PAINCN ---
History of Present Illness - Reason for Consult Consult date: 12/29/20 - History of Present Illness This is a 55 years old female with a chronic history of severe low back pain, neck pain, patient had multiple surgical interventions in the lumbar area she had lumbar laminectomy and she had fusion, and also patient had cervical decompression and fusion anterior and posterior fusion, patient reported that over the last 3 years she started having increased pain, intensity of the pain increased over time and currently the pain is intense interfere with her quality of life and preventing her from doing any activity of daily livings, she is not able to ambulate because of the pain, and the pain associated with numbness and tingling sensation in the lower extremities she feels weakness in her lower extremity bilaterally, she tried physical therapy for 8 weeks without any benefit she tried ice and heat therapy at home and she tried pain medication [place] and gabapentin without any significant relief of her pain, she ambulates using a wheelchair Past Medical History Past Medical History: Chest Pain / Angina, Heart Failure, COPD, CVA/TIA, Diabetes Mellitus, Hyperlipidemia, Hypertension, Osteoarthritis (OA), Thyroid Disorder Additional Past Medical History / Comment(s): using a wheelchair or a walker, bilateral peripheral neuropathy in feet and hands, chronic low back pain, lower leg edema, Last Myocardial Infarction Date:: 06/17/18 History of Any Multi-Drug Resistant Organisms: ESBL Year Discovered:: 09/06/17 MDRO Source:: ESBL URINE Past Surgical History: Back Surgery, Heart Catheterization, Joint Replacement, Orthopedic Surgery Additional Past Surgical History / Comment(s): 07/29/15 lumbar laminectomy decompression fusion L3-4 and L5-S1 with cell saver, lumbar instrumentation removal L4-5, L4-L5 laminectomy, BARBER KNEE REPLACEMENTS,ORIF rt ANKLE, CERVICAL FUSION, barber rotator cuff repair, surgery to barber wrist carpal tunnel releases, pain procedures, L breast lumpectomy-benign, bilateral legs varicose vein stripping. Barber cataracts, pain clinic procedures in past Past Anesthesia/Blood Transfusion Reactions: No Reported Reaction Additional Past Anesthesia/Blood Transfusion Reaction / Comm: Pt states she has never received blood. Smoking Status: Former smoker - Past Family History Father Brother(s) Family Medical History: Cancer Mother Sister(s) Family Medical History: Cancer Father Family Medical History: Myocardial Infarction ([place]) Additional Family Medical History / Comment(s): Father at 40 of a [place]. Mother Family Medical History: CVA/TIA Additional Family Medical History / Comment(s): Mother had a CVA Medications and Allergies Home Medications Medication Instructions Recorded Confirmed Type Furosemide [Lasix] 40 mg PO DAILY 11/14/13 12/29/20 History Nitroglycerin Sl Tabs [Nitrostat] 0.4 mg SUBLINGUAL Q5M PRN 07/20/15 12/29/20 History Atorvastatin Calcium [Lipitor] 40 mg PO HS #1 tab 08/04/15 12/29/20 Rx metFORMIN HCL 1,000 mg PO BID 02/20/18 12/29/20 History Cyanocobalamin [Vitamin B-12 1,000 mcg SQ Q30D 07/06/19 12/29/20 History Injection] Gabapentin [Neurontin] 400 mg PO BID 07/06/19 12/29/20 History Gabapentin [Neurontin] 800 mg PO HS 07/06/19 12/29/20 History Levothyroxine Sodium [Synthroid] 50 mcg PO DAILY 07/06/19 12/29/20 History glipiZIDE [Glucotrol] 10 mg PO BID 07/06/19 12/29/20 History lisinopriL [Zestril] 10 mg PO BID 02/18/20 12/29/20 History Albuterol Nebulized [Ventolin 2.5 mg INHALATION RT-QID PRN 02/19/20 12/29/20 History Nebulized] Metoprolol Tartrate [Lopressor] 100 mg PO BID #120 tab 02/20/20 12/29/20 Rx HYDROcodone/APAP 5-325MG [[place] 1 tab PO Q6HR PRN 12/23/20 12/29/20 History 5-325] Trelegy Ellipta 2 puff INHALATION HS 12/23/20 12/29/20 History Allergies Allergy/AdvReac Type Severity Reaction Status Date / Time Penicillins Allergy Rash/Hives Verified 12/23/20 11:05 Physical Exam Vitals: Vital Signs Temp Pulse Resp BP Pulse Ox 12/29/20 09:35 98.5 F 73 20 137/64 100 Physical Examinations : -Constitutiona : Cooperative , not in acute distress . -HEENT : nech : supple , no Lymphadenopathy , normal thyroid size . : eyes : no ptosis , no icterus, no photophobia . - neurologic : Cranial nerve II to XII intact , no focal neurological deffecit . -psychatric : alert , oriented X 3 , appropriate affect , intact judgment and insight . -Lymphatic : no Lymphadenopathy . - musculoskeltal : Cervical Spine motor stregnth in the deltoid and biceps, normal right side , normal Left side motor stregnth biceps and the wrist extensors normal right side ,normal left side . motor stregnth in the triceps muscle . normal Right side , normal Left side deep tendon reflexes normal at the biceps , normal at Brachioradialis , normal at triceps. cervical facet loading test: Positive Bilaterally Spurling test= positive Right , positive left. Neck distraction test= positive Right , positive left. Artemio sign= positive right, positive left . Lumber spine moter stegnth lower extremities ,thigh and legs 4/5 Right side , 4/5 Left side deep tendon reflexes : normal Knee Jerk , normal ankle Jerk Increased sensation in the lower extremity R>L at L3 4 dermatomal distribution lumber facet Loading Test =positive Right , positive Left Range of motion of the lumbar spine Flexion 30 degrees, extension 10 degrees strait leg raising test = positive at 30 degree Fabere test= positive Right , and positive LT . Sever tenderness over the Sacroiliac joint on the Right , and Left sides Gaenslen test= positive right ,and positive left . Seated flexion test= positive right ,and positive Left . Distraction test= positive bilaterally Sacroiliac compression test= positive bilaterally Results Comments: MRI of the lumbar spine laminectomy at L3 to S1 ,spinal stenosis at L2 3, with fusion at L4 5 Assessment and Plan Plan: Assessment and plan=1-postlaminectomy pain syndrome lumbar area. 2-lumbar spinal stenosis. Patient could benefit from caudal epidural steroid injection with lysis of epidural adhesions fluoroscopy guidance Time with Patient: Greater than 30 PQRS Measure Charge Sheet Measure #130: Documentation of Current Meds in Medical Chart: Patient's medications documented in chart Measure #226: Tobacco Use: Screen & Cessation Intervention: Pt not a tobacco user Measure #111: Pneumonia Vaccination: Pneumococcal vaccine administered or previously received Measure #47: Advance Care Plan: Advance care planning discussed & documented, pt chose/unable to give Measure #412: Opioid Treatment Agreement: No documentation of signed opioid treatment agreement Measure #408: Opioid Therapy Follow-up Evaluation: Patient had NO f/u eval minimum every 3 months during opioid therapy Measure #317: Preventitive Care & Scrn High Bld Press & F/U: Normal blood pressure, f/u not required Measure #128: Body Mass Index (BMI) Screening & Follow-up: BMI documented ABOVE normal parameters - f/u documented Measure #131: Pain Assessment & Follow-up: Pain positive & plan documented, Follow-up scheduled Measure #431: Unhealthy Alcohol Use Preventative Care & Scrn: Patient not identified as an unhealthy alcohol user PQRS Narrative: Smoking Status Former smoker Blood Pressure 137/64 Pain Intensity [Back] 9 Scale Used Numeric (1 - 10) Hx Alcohol Use (MH) No Home Medications: Ambulatory Orders Furosemide [Lasix] 40 mg PO DAILY 11/14/13 Nitroglycerin Sl Tabs [Nitrostat] 0.4 mg SUBLINGUAL Q5M PRN 07/20/15 Atorvastatin Calcium [Lipitor] 40 mg PO HS #1 tab 08/04/15 metFORMIN HCL 1,000 mg PO BID 02/20/18 Cyanocobalamin [Vitamin B-12 Injection] 1,000 mcg SQ Q30D 07/06/19 Gabapentin [Neurontin] 400 mg PO BID 07/06/19 Gabapentin [Neurontin] 800 mg PO HS 07/06/19 Levothyroxine Sodium [Synthroid] 50 mcg PO DAILY 07/06/19 glipiZIDE [Glucotrol] 10 mg PO BID 07/06/19 lisinopriL [Zestril] 10 mg PO BID 02/18/20 Albuterol Nebulized [Ventolin Nebulized] 2.5 mg INHALATION RT-QID PRN 02/19/20 Metoprolol Tartrate [Lopressor] 100 mg PO BID #120 tab 02/20/20 HYDROcodone/APAP 5-325MG [[place] 5-325] 1 tab PO Q6HR PRN 12/23/20 Trelegy Ellipta 2 puff INHALATION HS 12/23/20
== END ==
LOC: PNWHC3 09:09
PROVIDERS: ATTEND Specialist
DX: M48.061 Spinal stenosis, lumbar region without neurogenic claudication (principal); M96.1 Postlaminectomy syndrome, not elsewhere classified; J44.9 Chronic obstructive pulmonary disease, unspecified; E11.9 Type 2 diabetes mellitus without complications; E78.5 Hyperlipidemia, unspecified; I10 Essential (primary) hypertension; M19.90 Unspecified osteoarthritis, unspecified site; Z86.73 Personal history of transient ischemic attack (TIA), and cerebral infarction without residual deficits; Z86.79 Personal history of other diseases of the circulatory system; Z87.891 Personal history of nicotine dependence; Z79.899 Other long term (current) drug therapy; Z88.0 Allergy status to penicillin
CPT/HCPCS: 99211

== ENCOUNTER → 2021-01-18 | Day surgery (SDC) | payer MEDICARE ==
[2021-01-17 11:00] VITALS: BMI 44.2
[~2021-01-18] MED LIST changes: +DEXAMETHASONE SOD PHOSPHATE 10 MG/ML 1 ML VIAL ONE; +IOPAMIDOL M200 10 ML VIAL ONE; -LACTATED RINGERS 1,000 ML IV SCH; +ROPIVACAINE 5MG/ML 20ML VIAL ONE; +SODIUM CHLORIDE 0.9% (PF) 10 ML VIAL ONE
[2021-01-18 09:38] VITALS: RESP 16; TEMP 98.5
[2021-01-18 09:56] LABS: Glucose,Whole Blood 115 mg/dL (75-99)
[2021-01-18 10:23] VITALS: BP 150/67; PULSE 68
--- NOTE | 2021-01-18 10:25 | P.PCN ---
Date of Procedure: 01/18/21 Description of Procedure: PREOPERATIVE DIAGNOSIS: Lumbar post laminectomy syndrome. POSTOPERATIVE DIAGNOSIS: Lumbar post laminectomy syndrome. PROCEDURE: 1. Caudal epidural steroid injection under fluoroscopic guidance. 2. Caudal epidurogram ANESTHESIA: Local with 1% lidocaine; 5ml for subcutaneous infiltrations and IV versed 2mg EBL: None. PROCEDURE INDICATION: The patient with neuropathic pain radiating distally returns for caudal epidural steroid injection. Patient hx of multiple lumbar spine surgeries. PROCEDURE DESCRIPTION: The patient was seen and identified in the preoperative area. Risks, benefits, complications, and alternatives were discussed with the patient. The patient agreed to proceed with the procedure and signed the consent. IV was started, and vital signs were stable. Patient was taken to the OR and time out was completed. The patient was placed in the prone position on procedure table and a pillow was placed under the abdomen to reduce lumbar lordosis. The lumbosacral area was prepped and draped in the usual sterile fashion. Critical pause was taken. Vital signs were closely monitored during the procedure. Using lateral fluoroscopy the anterior-posterior plates of the sacrum were identified and the skin and deeper tissues corresponding into sacrococcygeal ligament were anesthetized using approximately 3 mL of 1% lidocaine. Then under fluoroscopy, a 3-1/2-inch 22-gauge whiticare needle was guided through the sacrococcygeal ligament, and into the epidural space. After negative aspiration, a 2 mL of omnipaque-180 contrast dye was injected with excellent epidurogram. Again after negative aspiration for CSF, blood, and with no paresthesias, D examethasone PF 10mg, 1ml of 0.5% Ropivacaine with 6 ml of preservative free normal saline(total of 8ml)solution was injected with washout of epidurogram. Needle was withdrawn intact. Skin was cleansed, and bandage was applied. COMPLICATIONS: None DISPOSITION / PLANS: The patient was placed in a supine position and transferred to the recovery area in a stable condition for observation and was discharged from the recovery room after meeting discharge criteria. Home discharge instructions given to the patient by the staff. The patient was reexamined prior to discharge. The patient will schedule a follow up in the clinic in 2-4 weeks.
--- NOTE | 2021-01-18 13:02 | FL ---
Fluoroscopy HISTORY: Pain 18 seconds fluoroscopy time supplied to the referring clinician. 3 intraoperative C-arm images docum ent the procedure. See dictated report from anesthesia.
== END ==
LOC: ORPAIN 08:45
PROVIDERS: ATTEND Anesthesiology
DX: M96.1 Postlaminectomy syndrome, not elsewhere classified (principal)
CPT/HCPCS: 62323; J1100; Q9966; J2795

== ENCOUNTER → 2021-02-14 | Outpatient (CLI) | payer MEDICARE ==
[2021-02-14 09:26] VITALS: BP 138/59; PULSE 76; RESP 20; TEMP 98.5
--- NOTE | 2021-02-14 09:51 | P.PN ---
Subjective Progress Note Date: 02/14/21 This is Follow up visit for this 85 years old female with a chronic history of severe low back pain, neck pain, patient had multiple surgical interventions in the lumbar area ,she had lumbar laminectomy and she had fusion, and also patient had cervical decompression and fusion anterior and posterior fusion, recently with a caudal epidural steroid injection under fluoroscopy guidance, patient reported that she had excellent pain releife for few day ,and currently the pain is intense interfere with her quality of life and preventing her from doing any activity of daily livings, she is not able to ambulate because of the pain, and the pain associated with numbness and tingling sensation in the lower extremities she feels weakness in her lower extremity bilaterally, she tried physical therapy for 8 weeks without any benefit she tried ice and heat therapy at home and she tried pain medication [place] and gabapentin without any significant relief of her pain, she ambulates using a wheelchair Physical Examinations : -Constitutiona : Cooperative , not in acute distress . -HEENT : nech : supple , no Lymphadenopathy , normal thyroid size . : eyes : no ptosis , no icterus, no photophobia . - neurologic : Cranial nerve II to XII intact , no focal neurological deffecit . -psychatric : alert , oriented X 3 , appropriate affect , intact judgment and insight . -Lymphatic : no Lymphadenopathy . - musculoskeltal : Cervical Spine motor stregnth in the deltoid and biceps, normal right side , normal Left side motor stregnth biceps and the wrist extensors normal right side ,normal left side . motor stregnth in the triceps muscle . normal Right side , normal Left side deep tendon reflexes normal at the biceps , normal at Brachioradialis , normal at triceps. cervical facet loading test: Positive Bilaterally Spurling test= positive Right , positive left. Neck distraction test= positive Right , positive left. Artemio sign= positive right, positive left . Lumber spine moter stegnth lower extremities ,thigh and legs 4/5 Right side , 4/5 Left side deep tendon reflexes : normal Knee Jerk , normal ankle Jerk Increased sensation in the lower extremity R>L at L3 4 dermatomal distribution lumber facet Loading Test =positive Right , positive Left Range of motion of the lumbar spine Flexion 30 degrees, extension 10 degrees strait leg raising test = positive at 30 degree Fabere test= positive Right , and positive LT . Sever tenderness over the Sacroiliac joint on the Right , and Left sides Gaenslen test= positive right ,and positive left . Seated flexion test= positive right ,and positive Left . Distraction test= positive bilaterally Sacroiliac compression test= positive bilaterally Results Comments: MRI of the lumbar spine laminectomy at L3 to S1 ,spinal stenosis at L2 3, with fusion at L4 5 Assessment and Plan Plan: Assessment and plan=1-postlaminectomy pain syndrome lumbar area. 2-lumbar spinal stenosis. Patient could benefit from repeate caudal epidural steroid injection under fluoroscopy guidance PQRS Measure Charge Sheet Measure #130: Documentation of Current Meds in Medical Chart: Patient's medications documented in chart Measure #226: Tobacco Use: Screen & Cessation Intervention: Pt not a tobacco user Measure #111: Pneumonia Vaccination: Pneumococcal vaccine administered or previously received Measure #47: Advance Care Plan: Advance care planning discussed & documented, pt chose/unable to give Measure #412: Opioid Treatment Agreement: No documentation of signed opioid treatment agreement Measure #408: Opioid Therapy Follow-up Evaluation: Patient had NO f/u eval minimum every 3 months during opioid therapy Measure #317: Preventitive Care & Scrn High Bld Press & F/U: Normal blood pressure, f/u not required Measure #128: Body Mass Index (BMI) Screening & Follow-up: BMI documented ABOVE normal parameters - f/u documented Measure #131: Pain Assessment & Follow-up: Pain positive & plan documented, Follow-up scheduled Measure #431: Unhealthy Alcohol Use Preventative Care & Scrn: Patient not identified as an unhealthy alcohol user PQRS Narrative: Objective - Vital Signs Vital signs: Vital Signs Temp 98.5 F 02/14/21 09:23 Pulse 76 02/14/21 09:23 Resp 20 02/14/21 09:23 BP 138/59 02/14/21 09:23 Pulse Ox 97 02/14/21 09:23
== END | disposition home or self-care (01) ==
LOC: PNWHC3 09:06
PROVIDERS: ATTEND Specialist
DX: M48.061 Spinal stenosis, lumbar region without neurogenic claudication (principal)
CPT/HCPCS: 99211

== ENCOUNTER 2021-03-22 08:24 | Day surgery (SDC) | payer MEDICARE ==
[2021-03-18 15:40] VITALS: BMI 44.2
[~2021-03-22 08:24] MED LIST changes: -DEXAMETHASONE SOD PHOSPHATE 10 MG/ML 1 ML VIAL ONE; -IOPAMIDOL M200 10 ML VIAL ONE; +LACTATED RINGERS 1,000 ML IV SCH; -ROPIVACAINE 5MG/ML 20ML VIAL ONE; -SODIUM CHLORIDE 0.9% (PF) 10 ML VIAL ONE
[2021-03-22 09:11] VITALS: TEMP 97.3
[2021-03-22 09:11] LABS: Glucose,Whole Blood 148 mg/dL (75-99)
[2021-03-22] MEDS ORDERED: TRIAMCINOLONE ACETONIDE 40 MG/ML 1 ML VIAL ONE (09:12)
[2021-03-22] MEDS ORDERED: IOPAMIDOL M200 10 ML VIAL ONE (09:12)
[2021-03-22] MEDS ORDERED: ROPIVACAINE 5MG/ML 20ML VIAL ONE (09:12)
--- NOTE | 2021-03-22 09:26 | P.PCN ---
Date of Procedure: 03/22/21 Surgeon: Viky Vale Pathology: none sent Condition: stable Disposition: PACU Description of Procedure: PREOPERATIVE DIAGNOSIS: Lumbar post laminectomy syndrome. POSTOPERATIVE DIAGNOSIS: Lumbar post laminectomy syndrome. PROCEDURE: 1. Caudal epidural steroid injection under fluoroscopic guidance. 2. Caudal epidurogram. ANESTHESIA: Local only with 1% lidocaine EBL: Negligible PROCEDURE INDICATION: The patient with neuropathic pain radiating distally returns for caudal epidural steroid injection. PROCEDURE DESCRIPTION: The patient was seen and identified in the preoperative area. Risks, benefits, complications, and alternatives were discussed with the patient. The patient agreed to proceed with the procedure and signed the consent. IV was started, and vital signs were stable. Patient was taken to the OR and time out was completed. The patient was placed in the prone position on procedure table and a pillow was placed under the abdomen to reduce lumbar lordosis. The lumbosacral area was prepped and draped in the usual sterile fashion. Critical pause was taken. Vital signs were closely monitored during the procedure. Using lateral fluoroscopy the anterior-posterior plates of the sacrum were identified and the skin and deeper tissues corresponding into sacrococcygeal ligament were anesthetized using approximately 3 mL of 1% lidocaine. Then under fluoroscopy, a 3-1/2-inch 20-gauge Tuohy epidural needle spinal needle was guided through the sacrococcygeal ligament, and into the epidural space with [id number] to air technique. After negative aspiration, a 1 mL of omnipaque-300 contrast dye was injected with excellent epidurogram. Again after negative aspiration for CSF, blood, and with no paresthesias, Kenalog 40mg,2ml of 0.5% preservative free Ropivacaine with 7ml of preservative free normal saline(total of 10ml)solution was injected with washout of epidurogram. Needle was withdrawn intact. Skin was cleansed, and bandage was applied. COMPLICATIONS: None. DISPOSITION / PLANS: The patient was placed in a supine position and transferred to the recovery area in a stable condition for observation and was discharged from the recovery room after meeting discharge criteria. Home discharge instructions given to the patient by the staff. The patient was reexamined prior to discharge. The patient will schedule a follow up in the clinic in 2-4 weeks.
--- NOTE | 2021-03-22 09:41 | FL ---
EXAMINATION TYPE: FL guided pain mgmt statistic DATE OF EXAM: 03/22/2021 HISTORY: Fluoroscopy time 7 seconds of fluoroscopy provided. IMPRESSION: 1. Fluoroscopy time.
[2021-03-22 09:51] VITALS: BP 135/60; PULSE 68; RESP 20
== END 2021-03-22 10:00 | disposition home or self-care (01) ==
LOC: ORPAIN 08:24
PROVIDERS: ATTEND Anesthesiology
DX: M96.1 Postlaminectomy syndrome, not elsewhere classified (principal)
CPT/HCPCS: 62323; J3301; Q9966; J2795

== ENCOUNTER → 2021-04-20 | Outpatient (CLI) | payer MEDICARE ==
[2021-04-20 09:49] VITALS: BP 124/72; PULSE 61; RESP 18; TEMP 97.8
--- NOTE | 2021-04-20 10:20 | P.PN ---
Subjective Progress Note Date: 04/20/21 This is Follow up visit for this 85 years old female with a chronic history of severe low back pain, neck pain, patient had multiple surgical interventions in the lumbar area ,she had lumbar laminectomy ,and fusion, and also patient had cervical decompression and fusion anterior and posterior fusion, recently with a caudal epidural steroid injection under fluoroscopy guidance X2 patient reported that she had excellent pain releife for few day ,and currently the pain is intense interfere with her quality of life and preventing her from doing any activity of daily livings, she is not able to ambulate because of the pain, and the pain associated with numbness and tingling sensation in the lower e xtremities she feels weakness in her lower extremity bilaterally, she tried physical therapy for 8 weeks without any benefit she tried ice and heat therapy at home and she tried pain medication [place] and gabapentin without any significant relief of her pain, she ambulates using a wheelchair Physical Examinations : -Constitutiona : Cooperative , not in acute distress . -HEENT : nech : supple , no Lymphadenopathy , normal thyroid size . : eyes : no ptosis , no icterus, no photophobia . - neurologic : Cranial nerve II to XII intact , no focal neurological deffecit . -psychatric : alert , oriented X 3 , appropriate affect , intact judgment and insight . -Lymphatic : no Lymphadenopathy . - musculoskeltal : Lumber spine moter stegnth lower extremities ,thigh and legs 3- 4/5 Right side , 3-4/5 Left side deep tendon reflexes : normal Knee Jerk , normal ankle Jerk Increased sensation in the lower extremity R>L at L3 4 dermatomal distribution lumber facet Loading Test =positive Right , positive Left Range of motion of the lumbar spine Flexion 30 degrees, extension 10 degrees Results MRI = Fusion L3 to S1 , lumbar facet arthropathy and lumbar degenerative disc disease at L1-2 and L2-3 Assessment and plan= 1-postlaminectomy pain syndrome lumbar area. 2-lumbar under Tom's with lumbar facet arthropathy at L1-2 and L2-3 We have done lumbar caudal epidural steroid injections 2 patient had and if it only for 1 day after each injection Patient will be good candidate to have diagnostic medial branch block lumbar area at L1-2, L2-3 x2 , and if it's possible proceed with RFA PQRS Measure Charge Sheet Measure #130: Documentation of Current Meds in Medical Chart: Patient's medications documented in chart Measure #226: Tobacco Use: Screen & Cessation Intervention: Pt not a tobacco user Measure #111: Pneumonia Vaccination: Pneumococcal vaccine administered or previously received Measure #47: Advance Care Plan: Advance care planning discussed & documented, pt chose/unable to give Measure #412: Opioid Treatment Agreement: No documentation of signed opioid treatment agreement Measure #408: Opioid Therapy Follow-up Evaluation: Patient had NO f/u eval minimum every 3 months during opioid therapy Measure #317: Preventitive Care & Scrn High Bld Press & F/U: Normal blood pressure, f/u not required Measure #128: Body Mass Index (BMI) Screening & Follow-up: BMI documented ABOVE normal parameters - f/u documented Measure #131: Pain Assessment & Follow-up: Pain positive & plan documented, Follow-up scheduled Measure #431: Unhealthy Alcohol Use Preventative Care & Scrn: Patient not identified as an unhealthy alcohol user PQRS Narrative: Objective - Vital Signs Vital signs: Vital Signs Temp 97.8 F 04/20/21 09:44 Pulse 61 04/20/21 09:44 Resp 18 04/20/21 09:44 BP 124/72 04/20/21 09:44 Pulse Ox Intake & Output 04/19/21 04/20/21 04/20/21 18:59 06:59 18:59 Weight 113.398 kg
== END ==
LOC: PNWHC3 09:27
PROVIDERS: ATTEND Specialist
DX: M96.1 Postlaminectomy syndrome, not elsewhere classified (principal); M47.816 Spondylosis without myelopathy or radiculopathy, lumbar region; Z87.891 Personal history of nicotine dependence; Z88.0 Allergy status to penicillin
CPT/HCPCS: 99211

== ENCOUNTER 2021-06-14 09:40 | Day surgery (SDC) | payer MEDICARE ==
[2021-06-10 13:27] VITALS: BMI 44.2
[2021-06-14 10:10] LABS: Glucose,Whole Blood 130 mg/dL (75-99)
[2021-06-14 10:16] VITALS: TEMP 97.1
[2021-06-14] MEDS ORDERED: .fentaNYL (PF) 50 MCG/ML 2 ML AMP ONE (10:20)
[2021-06-14] MEDS ORDERED: IOPAMIDOL M200 10 ML VIAL ONE (10:20)
[2021-06-14] MEDS ORDERED: ROPIVACAINE 5MG/ML 20ML VIAL ONE (10:20)
[2021-06-14] MEDS ORDERED: TRIAMCINOLONE ACETONIDE 40 MG/ML 1 ML VIAL ONE (10:20)
[2021-06-14] MEDS ORDERED: MIDAZOLAM 2 MG/2 ML VIAL ONE (10:20)
--- NOTE | 2021-06-14 10:36 | P.PCN ---
Date of Procedure: 06/14/21 Surgeon: Viky Vale Pathology: none sent Condition: stable Disposition: PACU Description of Procedure: PREOPERATIVE DIAGNOSIS: 1-Lumbar radiculopathy 2- Lumber Degenerative Disc Diseases. 3-postlaminectomy pain syndrome POSTOPERATIVE DIAGNOSIS: 1-Lumbar radiculopathy. 2-Lumbar Degenerative Disc Diseases 3-postlaminectomy pain syndrome PROCEDURE 1. Lumbar epidural steroid injection under fluoroscopic guidance at the L1-2 level in the right paramedian approach. 2. Lumbar epidurogram. ANESTHESIA: Local with 1% lidocaine; and IV moderate conscious sedation with Versed and fentanyl EBL: Minimal PROCEDURE INDICATION: The patient with low back pain and radiculitis symptoms unresponsive to conservative treatment. Fluoroscopy was used to optimize visualization of the needle placement and to maximize safety. PROCEDURE DESCRIPTION / TECHNIQUE: The patient was seen and identified in the preoperative area. Risks, benefits, complications including but not limited to infections ,bleeding ,allergic reaction to the medications ,nerve damage and not complete pain relief , and alternatives were discussed with the patient. The patient agreed to proceed with the procedure and signed the consent. IV was started, and vital signs were stable. Patient was taken to the OR and time out was completed. The patient was placed in the prone position on procedure table and a pillow was placed under the abdomen to reduce lumbar lordosis. The lumbosacral area was prepped and draped in the usual sterile fashion with ChloraPrep.Patient was closely monitored during the procedure. Conscious sedation was used during the procedure to decrease patients anxiety. Vital signs were monitered during the entire procedure. Using anterior-posterior fluoroscopy, the L1-2 interlaminar space was identified and the skin over this site was marked and then infiltrated with 1% lidocaine subcutaneously. Subsequently, a 20-gauge Tuohy epidural needle was inserted and advanced toward the epidural space using the Loss of resistance to air technique and guided by AP and lateral fluoroscopy. The correct needle position in the epidural space was verified with the injection of 1 mL of the water supriya uble contrast dye Omnipaque 180 contrast and observing an excellent epidurogram with the epidural spread of the dye, after negative aspiration for blood and CSF and in the absence of paresthesias. Again after negative aspiration, a 8 ml mixture containing 40 mg of Kenalog and 4 ml of preservative free Normal Saline, and 2 ml of preservative free Ropivacaine 0.5% solution was injected and a washout of epidurogram was seen. Needle was withdrawn intact, skin was cleansed, and bandages were applied. patient tolerated procedure well and was transferred to PACU in stable condition.A copy of the needle placement picture was saved to the fluoroscopy machine. COMPLICATIONS: None
[2021-06-14] MEDS ORDERED: IV FLUID CONTINUATION 1,000 ML IV ONE ×2 (10:42)
[2021-06-14 10:51] VITALS: RESP 18
[2021-06-14 11:22] VITALS: BP 119/50; PULSE 62
--- NOTE | 2021-06-14 11:23 | FL ---
Fluoroscopy HISTORY: Pain 7 seconds fluoroscopy time supplied to the referring clinician. 2 intraoperative C-arm images docume nt the procedure. See dictated report from anesthesia.
== END 2021-06-14 11:45 | disposition home or self-care (01) ==
LOC: ORPAIN 09:40
PROVIDERS: ATTEND Anesthesiology
DX: M54.16 Radiculopathy, lumbar region (principal); M51.36 Other intervertebral disc degeneration, lumbar region; M96.1 Postlaminectomy syndrome, not elsewhere classified
CPT/HCPCS: 62323; J2250; J3301; J3010; Q9966; J2795; 99152

== ENCOUNTER → 2021-10-07 | Day surgery (SDC) | payer MEDICARE ==
[2021-10-06 09:17] VITALS: BMI 44.2
[~2021-10-07] MED LIST changes: +LACTATED RINGERS 1,000 ML IV ONE; -LACTATED RINGERS 1,000 ML IV SCH
[2021-10-07 10:01] LABS: Glucose,Whole Blood 121 mg/dL (75-99)
[2021-10-07 10:06] VITALS: BP 178/89; PULSE 56; RESP 16; TEMP 97.1
== END ==
LOC: ORPAIN 09:24
PROVIDERS: ATTEND Specialist
DX: M54.50 Low back pain, unspecified (principal); Z53.8 Procedure and treatment not carried out for other reasons; Z98.890 Other specified postprocedural states

== ENCOUNTER → 2021-10-12 | Outpatient (CLI) | payer MEDICARE ==
[2021-10-12 11:14] VITALS: BP 151/76; PULSE 69; RESP 18; TEMP 98.2
--- NOTE | 2021-10-12 11:16 | P.PN ---
Subjective Progress Note Date: 10/12/21 Principal diagnosis: A 86 yr old female with at side with a history of severe and chronic low back pain secondary to lumbar degenerative disc diseases and lumbar spondylosis with facet arthropathy & sacroiliitis presents today for evaluation. Pt has had a lumbar fusion which makes facet blocks of the medial branches of L3-5 almost impossible to treat. Today, pt is complaining of lower lumbar/ tailbone pain, 5 /10 in intensity, constant, sharp, pressure-type sensation with radiation of pain down to the toes bilaterally. Pain is provoked by standing for periods of 10 minutes or bending. Pain is alleviated with medications, heat, physical therapy today with massage in April 2021 which was ineffective, use of a wheelchair for ambulation, reclining, repositioning and rest. Interventional pain procedures completed include Caudal JEFF with lysis, LESI L2- L3. Patient is currently on [place], Tylenol OTC. Patient denies any side effects of the medication(s), denies excessive drowsiness or sleepiness, denies suicidal ideation and reports that the current pain medication is helping to control the pain and improve activities of daily living. Patient denies any motor or sensory deficits. Patient denies any fever or night sweats, denies any change in the bowel movements or urination. Physical Examination: -Constitutional: Cooperative. Not in acute distress . -HEENT: Neck is supple. No lymphadenopathy. No thyromegaly. Normal thyroid size. Eyes: No ptosis , no icterus, no photophobia. ENT: No auditory deficits. Normal oropharynx. No Thrush. - Respiratory: Chest clear to auscultations bilaterally. No wheezing. No rhonchi. - Cardiovascular: Regular rate and rhythm. S1 / S2 , no S3 , no S4. - Gastrointestinal: Abdomen soft no tenderness. Bowel sounds positive in all four quadrants. No organomegaly. - Genitourinary: Deferred. - Neurologic: Cranial nerve II to XII intact. No focal neurological deficits. - Psychatric: Alert & oriented x 3. Matching mood & appropriate affect. Judgment and insight intact. - Lymphatic: No Lymphadenopathy. - Musculoskeletal: Cervical spine: Muscle bulk/ tone/ strength in the bilateral upper extremities normal. Facet loading test cervical area positive. Lumbar spine: Motor bulk/ tone/ strength lower extremities , thigh and legs : 5/5 Deep tendon reflexes : Normal Knee Jerk. Normal Ankle Jerk . Vertebral body tenderness to palpation over Lumbar Facet Loading Test positive Straight Leg Raise: positive at 30 degrees right side/ left side Gaenslen's Test positive Sacral spine : Severe tenderness over the Sacroiliac joint: right side / left side Range of motion: Flexion of the lumbar spine <60 degrees Range of motion: Extension of the lumbar spine <20 degrees Gaenslen's Test positive Belkis test: positive right side / left side Assessment and plan: Chronic low back pain secondary to lumbar degenerative disc disease , lumbar spondylosis with facet arthropathy & sacroiliitis Recommendation of BL SI joint injections. May need a series of injections, every 3 months, if indicated, for optimal pain relief. Risks, benefits of procedure discussed and patient verbalized understanding. Admits to medical history of diabetes. Admits to ASA 81mg daily use. Protocol on discontinuation/ continuation of medications nhan procedure discussed. All patient questions answered MAPS reviewed and it was appropriate. I have spent 31 minutes on patient care today. Dr Winn was available by phone for the evaluation of this patient. The time was used to review the medical records including relevant urine studies and Prescription history (MAPs), review of the available imaging, evaluation and examination of the patient, coordination of care with the medical staff and if applicable referring physicians, as well as creation of the medical record PQRS Measure Charge Sheet Mode of Arrival: Ambulatory, Wheelchair PQRS Narrative: Smoking Status Former smoker Blood Pressure 151/76 Pain Intensity [Bilateral 5 Lower Back] Scale Used Numeric (1 - 10) Hx Alcohol Use (MH) No Home Medications: Ambulatory Orders Furosemide [Lasix] 40 mg PO DAILY 11/14/13 Nitroglycerin Sl Tabs [Nitrostat] 0.4 mg SUBLINGUAL Q5M PRN 07/20/15 Atorvastatin Calcium [Lipitor] 40 mg PO HS #1 tab 08/04/15 metFORMIN HCL [Glucophage] 1,000 mg PO BID 02/20/18 Cyanocobalamin [Vitamin B-12 Injection] 1,000 mcg SQ Q30D 07/06/19 Gabapentin [Neurontin] 400 mg PO BID 07/06/19 Gabapentin [Neurontin] 800 mg PO HS 07/06/19 Levothyroxine Sodium [Synthroid] 50 mcg PO DAILY 07/06/19 lisinopriL [Zestril] 10 mg PO BID 08/19/20 Albuterol Nebulized [Ventolin Nebulized] 2.5 mg INHALATION RT-QID PRN 02/19/20 Metoprolol Tartrate [Lopressor] 100 mg PO BID #120 tab 02/20/20 HYDROcodone/APAP 5-325MG [[place] 5-325] 1 tab PO Q6HR PRN 12/23/20 Trelegy Ellipta 1 puff INHALATION HS 12/23/20 Aspirin [Adult Low Dose Aspirin EC] 81 mg PO HS 10/06/21 Pioglitazone [Actos] 30 mg PO DAILY 10/06/21
== END ==
LOC: PNWHC3 10:11
PROVIDERS: ATTEND Specialist
DX: M51.36 Other intervertebral disc degeneration, lumbar region (principal); M47.816 Spondylosis without myelopathy or radiculopathy, lumbar region; M46.1 Sacroiliitis, not elsewhere classified; G89.29 Other chronic pain; E11.9 Type 2 diabetes mellitus without complications; Z79.84 Long term (current) use of oral hypoglycemic drugs; Z87.891 Personal history of nicotine dependence; Z88.0 Allergy status to penicillin
CPT/HCPCS: 99211

== ENCOUNTER 2021-10-14 23:40 | Inpatient (IN) | payer MEDICARE ==
[2021-10-15] MEDS ORDERED: NITROGLYCERIN OINT 1 INCH/GM PACKET TOPICAL STA (00:10)
[2021-10-15] MEDS ORDERED: FUROSEMIDE 10 MG/ML 4 ML VIAL IV STA (00:10)
--- NOTE | 2021-10-15 00:23 | ED ---
General Adult HPI - General Chief complaint: Shortness of Breath Stated complaint: VAUGHN, High blood pressure Time Seen by Provider: 10/15/21 00:05 Source: patient, family, RN notes reviewed, old records reviewed Mode of arrival: ambulatory Limitations: no limitations - History of Present Illness Initial comments: This is a pleasant 86-year-old female who presents with increasing shortness of breath over the past 3 days with bilateral leg swelling and chronic back pain. She denies any chest pain. Patient states that she did see her primary care doctor last week who changed some of her diabetes medications for better blood glucose control but did not change any of her blood pressure medications. Family at bedside states that her blood pressure was over 200 today. She states she has done multiple breathing treatments at home for her shortness of breath with no relief. She does have a history of heart failure, COPD, diabetes and hypertension. -: days(s) (3) Location: back Severity scale (1-10): 10 Quality: aching Consistency: constant Associated Symptoms: shortness of breath - Related Data Home Medications Medication Instructions Recorded Confirmed Furosemide [Lasix] 40 mg PO DAILY 11/14/13 10/07/21 Nitroglycerin Sl Tabs [Nitrostat] 0.4 mg SUBLINGUAL Q5M PRN 07/20/15 10/07/21 metFORMIN HCL [Glucophage] 1,000 mg PO BID 02/20/18 10/07/21 Cyanocobalamin [Vitamin B-12 1,000 mcg SQ Q30D 07/06/19 10/07/21 Injection] Gabapentin [Neurontin] 400 mg PO BID 07/06/19 10/07/21 Gabapentin [Neurontin] 800 mg PO HS 07/06/19 10/07/21 Levothyroxine Sodium [Synthroid] 50 mcg PO DAILY 07/06/19 10/07/21 lisinopriL [Zestril] 10 mg PO BID 02/18/20 10/07/21 Albuterol Nebulized [Ventolin 2.5 mg INHALATION RT-QID PRN 02/19/20 10/07/21 Nebulized] HYDROcodone/APAP 5-325MG [[place] 1 tab PO Q6HR PRN 12/23/20 10/07/21 5-325] Trelegy Ellipta 1 puff INHALATION 06/24/21 04/08/22 Aspirin [Adult Low Dose Aspirin EC] 81 mg PO HS 10/06/21 10/07/21 Pioglitazone [Actos] 30 mg PO DAILY 10/06/21 10/07/21 Previous Rx's Medication Instructions Recorded Atorvastatin Calcium [Lipitor] 40 mg PO HS #1 tab 08/04/15 Metoprolol Tartrate [Lopressor] 100 mg PO BID #120 tab 02/20/20 Allergies Allergy/AdvReac Type Severity Reaction Status Date / Time Penicillins Allergy Rash/Hives Verified 10/14/21 23:47 Review of Systems ROS Statement: Those systems with pertinent positive or pertinent negative responses have been documented in the HPI. ROS Other: All systems not noted in ROS Statement are negative. Past Medical History Past Medical History: Chest Pain / Angina, Heart Failure, COPD, CVA/TIA, Diabetes Mellitus, Hyperlipidemia, Hypertension, Osteoarthritis (OA), Thyroid Disorder Additional Past Medical History / Comment(s): Using a wheelchair or a walker, bilateral peripheral neuropathy in feet and hands, chronic low back pain, lower leg edema. Last Myocardial Infarction Date:: 06/17/18 History of Any Multi-Drug Resistant Organisms: ESBL Date of last positivie culture/infection: 09/06/17 MDRO Source:: ESBL URINE Past Surgical History: Back Surgery, Heart Catheterization, Joint Replacement, Orthopedic Surgery Additional Past Surgical History / Comment(s): Lumbar laminectomy decompression fusion L3-4 and L5-S1 with cell saver, lumbar instrumentation removal L4-5, L4- L5 laminectomy, BILATERAL KNEE REPLACEMENTS, ORIF RIGHT ANKLE, CERVICAL FUSION, bilateral rotator cuff repair, bilateral wrist carpal tunnel releases, pain procedures, left breast lumpectomy-benign, bilateral varicose vein stripping, bilateral cataracts. Past Anesthesia/Blood Transfusion Reactions: No Reported Reaction Additional Past Anesthesia/Blood Transfusion Reaction / Comment(s): Pt states she has never received blood. Past Psychological History: No Psychological Hx Reported Smoking Status: Former smoker Past Alcohol Use History: None Reported Past Drug Use History: None Reported - Past Family History Father Family Medical History: Myocardial Infarction (SD) Additional Family Medical History / Comment(s): Father at 40 of a SD. Mother Family Medical History: CVA/TIA Additional Family Medical History / Comment(s): Mother had a CVA General Exam Limitations: no limitations General appearance: alert, in no apparent distress Eye exam: Absent: scleral icterus, conjunctival injection, periorbital swelling ENT exam: Present: normal exam, normal oropharynx, mucous membranes moist Neck exam: Present: normal inspection. Absent: tenderness, meningismus, ly mphadenopathy Respiratory exam: Present: wheezes (Bilaterally), rales (bases). Absent: respiratory distress, rhonchi, stridor, chest wall tenderness, accessory muscle use, decreased breath sounds Cardiovascular Exam: Present: regular rate, normal rhythm. Absent: JVD GI/Abdominal exam: Present: soft, normal bowel sounds. Absent: distended, tenderness Extremities exam: Present: normal capillary refill, pedal edema (3+ bilateral ). Absent: tenderness Back exam: Absent: CVA tenderness (R), CVA tenderness (L), rash noted Neurological exam: Present: alert, oriented X3 Psychiatric exam: Present: normal affect, normal mood Skin exam: Present: warm, dry, normal color. Absent: cyanosis, diaphoretic, petechiae, pallor Course Vital Signs 10/14/21 10/15/21 10/15/21 23:42 00:11 01:23 Temperature 97.1 F L Pulse Rate 69 67 Respiratory 18 26 H 24 Rate Blood Pressure 177/95 146/61 O2 Sat by Pulse 92 L 99 Oximetry EKG Findings - EKG Results: EKG: sinus rhythm (Ventricular rate of 70, WI interval 0.69, QRS 0.82, QTC 0.395) Medical Decision Making - Medical Decision Making Patient presents with 3 days of difficulty breathing with bilateral lower extremity edema. EKG shows sinus rhythm, troponin is negative at 0.012. BNP 4300. X-ray shows mild congestive heart failure with small pleural effusions. Patient has 3+ pitting pedal edema. She was given IV Lasix and nitro paste. Patient states that she is feeling much better. Blood pressure 125/92, heart rate 63. Pulse ox 99% on 2 liters. This is likely a CHF exacerbation with an underlying COPD. She will be placed in observation. Potassium is elevated at 5.7. Case discussed with Dr. Irving. Patient was given IV Lasix no further treatment recommended at this time. - Lab Data Result diagrams: 10/15/21 00:14 10/15/21 01:48 Lab Results 10/15/21 10/15/21 10/15/21 Range/Units 00:14 00:14 00:14 WBC 10.1 (3.8-10.6) k/uL RBC 3.95 (3.80-5.40) m/uL Hgb 11.2 L (11.4-16.0) gm/dL Hct 35.1 (34.0-46.0) % MCV 88.8 (80.0-100.0) fL MCH 28.3 (25.0-35.0) pg MCHC 31.9 (31.0-37.0) g/dL RDW 14.1 (11.5-15.5) % Plt Count 363 (150-450) k/uL MPV 7.4 Neutrophils % 62 % Lymphocytes % 26 % Monocytes % 7 % Eosinophils % 3 % Basophils % 0 % Neutrophils # 6.3 (1.3-7.7) k/uL Lymphocytes # 2.7 (1.0-4.8) k/uL Monocytes # 0.7 (0-1.0) k/uL Eosinophils # 0.3 (0-0.7) k/uL Basophils # 0.0 (0-0.2) k/uL Hypochromasia Slight PT 10.5 (9.0-12.0) sec INR 1.0 (<1.2) APTT 25.9 (22.0-30.0) sec Sodium (137-145) mmol/L Potassium (3.5-5.1) mmol/L Chloride (98-107) mmol/L Carbon Dioxide (22-30) mmol/L Anion Gap mmol/L BUN (7-17) mg/dL Creatinine (0.52-1.04) mg/dL Est GFR (CKD-EPI)AfAm (>60 ml/min/1.73 sqM) Est GFR (CKD-EPI)NonAf (>60 ml/min/1.73 sqM) Glucose (74-99) mg/dL Calcium (8.4-10.2) mg/dL Magnesium (1.6-2.3) mg/dL Total Bilirubin (0.2-1.3) mg/dL AST (14-36) U/L ALT (4-34) U/L Alkaline Phosphatase (38-126) U/L Troponin I <0.012 (0.000-0.034) ng/mL NT-Pro-B Natriuret Pep pg/mL Total Protein (6.3-8.2) g/dL Albumin (3.5-5.0) g/dL Urine Color Urine Appearance (Clear) Urine pH (5.0-8.0) Ur Specific [place] (1.001-1.035) Urine Protein (Negative) Urine Glucose (UA) (Negative) Urine Ketones (Negative) Urine Blood (Negative) Urine Nitrite (Negative) Urine Bilirubin (Negative) Urine Urobilinogen (<2.0) mg/dL Ur Leukocyte Esterase (Negative) Urine RBC (0-5) /hpf Urine WBC (0-5) /hpf Urine Bacteria (None) /hpf Hyaline Casts (0-2) /lpf Urine Mucus (None) /hpf 10/15/21 10/15/21 10/15/21 Range/Units 00:14 01:05 01:48 WBC (3.8-10.6) k/uL RBC (3.80-5.40) m/uL Hgb (11.4-16.0) gm/dL Hct (34.0-46.0) % MCV (80.0-100.0) fL MCH (25.0-35.0) pg MCHC (31.0-37.0) g/dL RDW (11.5-15.5) % Plt Count (150-450) k/uL MPV Neutrophils % % Lymphocytes % % Monocytes % % Eosinophils % % Basophils % % Neutrophils # (1.3-7.7) k/uL Lymphocytes # (1.0-4.8) k/uL Monocytes # (0-1.0) k/uL Eosinophils # (0-0.7) k/uL Basophils # (0-0.2) k/uL Hypochromasia PT (9.0-12.0) sec INR (<1.2) APTT (22.0-30.0) sec Sodium 130 L (137-145) mmol/L Potassium 5.7 H (3.5-5.1) mmol/L Chloride 99 (98-107) mmol/L Carbon Dioxide 23 (22-30) mmol/L Anion Gap 8 mmol/L BUN 30 H (7-17) mg/dL Creatinine 1.03 (0.52-1.04) mg/dL Est GFR (CKD-EPI)AfAm 58 (>60 ml/min/1.73 sqM) Est GFR (CKD-EPI)NonAf 50 (>60 ml/min/1.73 sqM) Glucose 151 H (74-99) mg/dL Calcium 8.5 (8.4-10.2) mg/dL Magnesium 2.1 (1.6-2.3) mg/dL Total Bilirubin 0.4 (0.2-1.3) mg/dL AST 19 (14-36) U/L ALT 13 (4-34) U/L Alkaline Phosphatase 79 (38-126) U/L Troponin I (0.000-0.034) ng/mL NT-Pro-B Natriuret Pep 4300 pg/mL Total Protein 6.3 (6.3-8.2) g/dL Albumin 3.6 (3.5-5.0) g/dL Urine Color Light Yellow Urine Appearance Cloudy H (Clear) Urine pH 6.5 (5.0-8.0) Ur Specific [place] 1.006 (1.001-1.035) Urine Protein Negative (Negative) Urine Glucose (UA) Negative (Negative) Urine Ketones Negative (Negative) Urine Blood Trace H (Negative) Urine Nitrite Negative (Negative) Urine Bilirubin Negative (Negative) Urine Urobilinogen <2.0 (<2.0) mg/dL Ur Leukocyte Esterase Large H (Negative) Urine RBC 2 (0-5) /hpf Urine WBC 65 H (0-5) /hpf Urine Bacteria Occasional H (None) /hpf Hyaline Casts 3 H (0-2) /lpf Urine Mucus Rare H (None) /hpf Disposition Clinical Impression: CHF (congestive heart failure) Disposition: ADMITTED IP TO THIS HOSP Decision Date: 10/15/21 Decision Time: 01:19
[2021-10-15 00:31] LABS: Basophils % (A) 0 %; Eosinophils # (A) 0.3 k/uL (0-0.7); Eosinophils % (A) 3 %; HCT 35.1 % (34.0-46.0); HGB 11.2 gm/dL (11.4-16.0); Hypochromasia Slight; Lymphocytes # (A) 2.7 k/uL (1.0-4.8); Lymphocytes % (A) 26 %; MCH 28.3 pg (25.0-35.0); MCHC 31.9 g/dL (31.0-37.0); MCV 88.8 fL (80.0-100.0); Mean Platelet Volume 7.4; Monocytes # (A) 0.7 k/uL (0-1.0); Monocytes % (A) 7 %; Neutrophils # (A) 6.3 k/uL (1.3-7.7); Neutrophils % (A) 62 %; Platelet Count 363 k/uL (150-450); RBC 3.95 m/uL (3.80-5.40); RDW 14.1 % (11.5-15.5); WBC 10.1 k/uL (3.8-10.6)
[2021-10-15 00:40] LABS: Partial Thromboplastin Time 25.9 sec (22.0-30.0); Prothrombin Time 10.5 sec (9.0-12.0)
--- NOTE | 2021-10-15 00:46 | XR ---
EXAMINATION TYPE: XR chest 2V DATE OF EXAM: 10/15/2021 COMPARISON: 03/19/2020 HISTORY: Short of breath TECHNIQUE: FINDINGS: There is blunting of the costophrenic angles. There is mild pulmonary congestion. Heart is top normal in size. IMPRESSION: Mild congestive heart failure and small pleural effusions is new compared to old exam.
[2021-10-15 01:19] LABS: Appearance,Urine Cloudy (Clear); Bacteria,Urine Occasional /hpf; Bilirubin,Urine Negative (Negative); Blood,Urine Trace (Negative); Color,Urine Light Yellow; Glucose,Urine (UA) Negative (Negative); Hyaline Casts,Urine 3 /lpf (0-2); Ketones,Urine Negative (Negative); Leukocyte Esterase,Urine Large (Negative); Mucus,Urine Rare /hpf; Nitrite,Urine Negative (Negative); PH, Urine 6.5 (5.0-8.0); Protein,Urine Negative (Negative); RBC,Urine 2 /hpf (0-5); Specific Gravity,Urine 1.006 (1.001-1.035); Urobilinogen,Urine <2.0 mg/dL (<2.0); WBC,Urine 65 /hpf (0-5)
[2021-10-15] MEDS ORDERED: NALOXONE 0.4 MG/ML 1 ML VIAL IV PRN (01:32)
[2021-10-15 02:16] LABS: Albumin 3.6 g/dL (3.5-5.0); Calcium 8.5 mg/dL (8.4-10.2); Magnesium 2.1 mg/dL (1.6-2.3); Potassium 5.7 mmol/L (3.5-5.1); Total Bilirubin 0.4 mg/dL (0.2-1.3); Total Protein 6.3 g/dL (6.3-8.2)
[2021-10-15] MEDS ORDERED: ALBUTEROL NEBULIZED 2.5 MG/3 ML INHALATION PRN (02:23)
[2021-10-15 06:00] LABS: Glucose,Whole Blood 125 mg/dL (75-99)
[2021-10-15] MEDS ORDERED: METOPROLOL TARTRATE 50 MG TAB PO SCH (09:00)
[2021-10-15] MEDS: FUROSEMIDE 40 MG TAB PO SCH (09:04)
[2021-10-15] MEDS: lisinopriL 10 MG TAB PO SCH ×2 (09:04→19:59)
[2021-10-15 11:37] LABS: Glucose,Whole Blood 116 mg/dL (75-99)
--- NOTE | 2021-10-15 12:42 | P.HPIM ---
History of Present Illness H&P Date: 10/15/21 Chief Complaint: Shortness of breath Pleasant 86-year-old female well-known to the practice who states she has had increasing shortness of breath for the past 3 days with bipedal edema known chronic back pain, patient denies chest pain, recently seen at our office, meds changed for better glucose control BP meds stay the same States she used rescue inhaler several times with no improvement in symptoms Review of Systems Constitutional: Reports as per HPI, Reports chronic pain, Reports weakness Ears, nose, mouth and throat: Reports as per HPI Cardiovascular: Reports high blood pressure, Reports leg edema, Reports shortness of breath Respiratory: Reports as per HPI, Reports dyspnea Gastrointestinal: Reports as per HPI Genitourinary: Reports dysuria Menstruation: Reports postmenopausal Musculoskeletal: Reports low back pain Integumentary: Reports as per HPI Neurological: Reports as per HPI Past Medical History Past Medical History: Chest Pain / Angina, Heart Failure, COPD, CVA/TIA, Diabetes Mellitus, Hyperlipidemia, Hypertension, Osteoarthritis (OA), Thyroid Disorder Additional Past Medical History / Comment(s): Using a wheelchair or a walker, bilateral peripheral neuropathy in feet and hands, chronic low back pain, lower leg edema. Last Myocardial Infarction Date:: 06/17/18 History of Any Multi-Drug Resistant Organisms: ESBL Date of last positivie culture/infection: 09/06/17 MDRO Source:: ESBL URINE Past Surgical History: Back Surgery, Heart Catheterization, Joint Replacement, Orthopedic Surgery Additional Past Surgical History / Comment(s): Lumbar laminectomy decompression fusion L3-4 and L5-S1 with cell saver, lumbar instrumentation removal L4-5, L4- L5 laminectomy, BILATERAL KNEE REPLACEMENTS, ORIF RIGHT ANKLE, CERVICAL FUSION, bilateral rotator cuff repair, bilateral wrist carpal tunnel releases, pain procedures, left breast lumpectomy-benign, bilateral varicose vein stripping, bilateral cataracts. Past Anesthesia/Blood Transfusion Reactions: No Reported Reaction Additional Past Anesthesia/Blood Transfusion Reaction / Comment(s): Pt states she has never received blood. Past Psychological History: No Psychological Hx Reported Additional Psychological History / Comment(s): . Smoking Status: Former smoker Past Alcohol Use History: None Reported Additional Past Alcohol Use History / Comment(s): Pt started smoking in 1955 and quit in 1974. She was a 1.5 ppd smoker. Past Drug Use History: None Reported - Past Family History Father Family Medical History: Myocardial Infarction (NM) Additional Family Medical History / Comment(s): Father at 40 of a NM. Mother Family Medical History: CVA/TIA Additional Family Medical History / Comment(s): Mother had a CVA Medications and Allergies Home Medications Medication Instructions Recorded Confirmed Type Furosemide [Lasix] 40 mg PO DAILY 11/14/13 10/15/21 History Nitroglycerin Sl Tabs [Nitrostat] 0.4 mg SUBLINGUAL Q5M PRN 07/20/15 10/15/21 History Atorvastatin Calcium [Lipitor] 40 mg PO HS #1 tab 08/04/15 10/15/21 Rx metFORMIN HCL [Glucophage] 1,000 mg PO BID 02/20/18 10/15/21 History Cyanocobalamin [Vitamin B-12 1,000 mcg SQ Q30D 07/06/19 10/15/21 History Injection] Gabapentin [Neurontin] 400 mg PO BID@0800,1600 07/06/19 10/15/21 History Gabapentin [Neurontin] 800 mg PO HS 07/06/19 10/15/21 History Levothyroxine Sodium [Synthroid] 50 mcg PO DAILY 07/06/19 10/15/21 History lisinopriL [Zestril] 10 mg PO BID 02/18/20 10/15/21 History Albuterol Nebulized [Ventolin 2.5 mg INHALATION RT-QID PRN 02/19/20 10/15/21 History Nebulized] HYDROcodone/APAP 5-325MG [Cromwell 1 tab PO Q6HR PRN 12/23/20 10/15/21 History 5-325] Aspirin [Adult Low Dose Aspirin EC] 81 mg PO HS 10/06/21 10/15/21 History Pioglitazone [Actos] 30 mg PO DAILY 10/06/21 10/15/21 History Fluticasone/Umeclidin/Vilanter 1 puff INHALATION RT-HS 10/15/21 10/15/21 History [Trelegy Ellipta 100-62.5-25] Metoprolol Tartrate [Lopressor] 50 mg PO BID@1600,2100 10/15/21 10/15/21 History Metoprolol Tartrate [Lopressor] 100 mg PO DAILY 10/15/21 10/15/21 History Allergies Allergy/AdvReac Type Severity Reaction Status Date / Time Penicillins Allergy Rash/Hives Verified 10/15/21 11:05 Physical Exam Osteopathic Statement: *. No significant issues noted on an osteopathic structural exam other than those noted in the History and Physical/Consult. Vitals: Vital Signs Temp Pulse Pulse Resp BP BP Pulse Ox 10/15/21 09:04 98.3 F 68 16 146/65 98 10/15/21 03:12 98.4 F 69 20 184/69 97 10/15/21 02:00 67 16 125/57 98 10/15/21 01:23 67 24 146/61 99 10/15/21 00:11 26 H 10/14/21 23:42 97.1 F L 69 18 177/95 92 L Intake and Output 10/14/21 10/15/21 10/15/21 22:59 06:59 14:59 Intake Total 485 Balance 485 Intake: Oral 485 Other: # Voids 1 Weight 113.398 kg 113.398 kg General: [Patient awake, alert and oriented times 3. Patient in no acute distress.] HEENT: [PERRL. EOMI. No pharyngeal erythema or exudate.] Neck: [No adenopathy.] Cardiac: [Heart regular in rate and rhythm. No S3. No S4. No clicks, rubs. No murmur.] Lungs bilateral wheezes minimal bibasilar rhonchi Abdomen: [No mass. No organomegaly. Bowel sounds presnt and normoactive in all 4 quadrants.] Morbid obesity Extremes: [Minimal bipedal edema today no cyanosis no claudication normal pulses] : Normal female genitalia Musculoskeletal: [No joint erythema, edema or tenderness.] Skin: [No rash.] Neurologic: [No lateralizing deficits. CN II - XII grossly intact.] Lymphatic: [No adenopathy.] Results CBC & Chem 7: 10/15/21 00:14 10/15/21 01:48 Labs: Abnormal Lab Results - Last 24 Hours (Table) 10/15/21 10/15/21 10/15/21 Range/Units 00:14 01:05 01:48 Hgb 11.2 L (11.4-16.0) gm/dL Sodium 130 L (137-145) mmol/L Potassium 5.7 H (3.5-5.1) mmol/L BUN 30 H (7-17) mg/dL Glucose 151 H (74-99) mg/dL POC Glucose (mg/dL) (75-99) mg/dL Urine Appearance Cloudy H (Clear) Urine Blood Trace H (Negative) Ur Leukocyte Esterase Large H (Negative) Urine WBC 65 H (0-5) /hpf Urine Bacteria Occasional H (None) /hpf Hyaline Casts 3 H (0-2) /lpf Urine Mucus Rare H (None) /hpf 10/15/21 10/15/21 Range/Units 05:59 11:26 Hgb (11.4-16.0) gm/dL Sodium (137-145) mmol/L Potassium (3.5-5.1) mmol/L BUN (7-17) mg/dL Glucose (74-99) mg/dL POC Glucose (mg/dL) 125 H 116 H (75-99) mg/dL Urine Appearance (Clear) Urine Blood (Negative) Ur Leukocyte Esterase (Negative) Urine WBC (0-5) /hpf Urine Bacteria (None) /hpf Hyaline Casts (0-2) /lpf Urine Mucus (None) /hpf Microbiology - Last 24 Hours (Table) 10/15/21 01:05 Urine Culture - Preliminary Urine,Voided Thrombosis Risk Factor Assmnt - Choose All That Apply Each Risk Factor Represents 3 Points: Age 75 years or older Thrombosis Risk Factor Assessment Total Risk Factor Score: 3 Thrombosis Risk Factor Assessment Level: Moderate Risk
--- NOTE | 2021-10-15 12:59 | ECHOF ---
Referral Reason:CHF/dyspnea MEASUREMENTS -------- HEIGHT: 157.5 cm WEIGHT: 113.4 kg BP: IVSd: 1.1 cm (0.6 - 1.1) LVIDd: 4.9 cm (3.9 - 5.3) LVPWd: 1.2 cm (0.6 - 1.1) IVSs: 1.4 cm LVIDs: 3.4 cm LVPWs: 1.3 cm LAESV Index (A-L): 39.94 ml/m Ao Diam: 2.9 cm (2.0 - 3.7) MV EXCURSION: 10.065 mm (> 18.000) MV EF SLOPE: 28 mm/s (70 - 150) EPSS: 0.2 cm MV E Kamar: 0.96 m/s MV DecT: 275 ms MV A Kamar: 1.19 m/s MV E/A Ratio: 0.80 AV maxP.90 mmHg AV meanP.26 mmHg RAP: 5.00 mmHg RVSP: 56.79 mmHg FINDINGS -------- Undetermined rhythm. This was a technically adequate study. The left ventricular size is normal. There is mild concentric left ventricular hypertrophy. There is normal global left ventricular contractility. Overall left ventricular systolic function is nor mal with, an EF between 55 - 60 %. The right ventricle is normal in size. LA is moderately dilated 34-39 ml/m2 The right atrial size is normal. There is moderate aortic stenosis present. Peak/mean gradient across the Aortic Valve is 47.90mmHg / 21.26mmHg. Mild mitral regurgitation is present. Mild tricuspid regurgitation present. There is moderate pulmonary hypertension. The right ventric ular systolic pressure, as measured by Doppler, is 56.79mmHg. The pulmonic valve was not well visualized. There is no pericardial effusion. CONCLUSIONS -------- 1. The left ventricular size is normal. 2. There is mild concentric left ventricular hypertrophy. 3. There is normal global left ventricular contractility. 4. Overall left ventricular systolic function is normal with, an EF between 55 - 60 %. 5. The right ventricle is normal in size. 6. LA is moderately dilated 34-39 ml/m2 7. The right atrial size is normal. 8. There is moderate aortic stenosis present. 9. Peak/mean gradient across the Aortic Valve is 47.90mmHg / 21.26mmHg. 10. Mild mitral regurgitation is present. 11. Mild tricuspid regurgitation present. 12. There is moderate pulmonary hypertension. 13. The right ventricular systolic pressure, as measured by Doppler, is 56.79mmHg. 14. The pulmonic valve was not well visualized. 15. There is no pericardial effusion. [employer]: Mercy Linares RDCS
[2021-10-15] MEDS: CIPROFLOXACIN HCL 250 MG TAB PO SCH ×2 (14:55→20:00)
[2021-10-15] MEDS: HYDROcodone/APAP 5-325MG 1 EACH TAB PO PRN (14:56)
[2021-10-15] MEDS: GABAPENTIN 400 MG CAP PO SCH ×2 (15:56→19:59)
[2021-10-15 16:20] LABS: Glucose,Whole Blood 146 mg/dL (75-99)
[2021-10-15] MEDS: metFORMIN 500 MG TAB PO SCH (19:59)
[2021-10-15] MEDS: METOPROLOL TARTRATE 50 MG TAB PO SCH (19:59)
[2021-10-15] MEDS: ATORVASTATIN 40 MG TAB PO SCH (19:59)
[2021-10-15] MEDS ORDERED: NON FORMULARY DRUG (Fluticasone/Umeclidin/Vilanter [Trelegy Ellipta 100-62.5-25] 1 EACH Bl INHALATION SCH (20:00)
[2021-10-15] MEDS: SYMBICORT 80-4.5 MCG INHALER INHALATION SCH (20:24)
[2021-10-15] MEDS: IPRATROPIUM 0.5 MG/2.5 ML NEBU INHALATION SCH (20:24)
[2021-10-15 20:39] LABS: Glucose,Whole Blood 142 mg/dL (75-99)
[2021-10-16] MEDS: LEVOTHYROXINE 50 MCG TAB PO SCH (06:50)
[2021-10-16] MEDS: metFORMIN 500 MG TAB PO SCH ×2 (08:50→20:49)
[2021-10-16] MEDS: CIPROFLOXACIN HCL 250 MG TAB PO SCH (08:50)
[2021-10-16] MEDS: lisinopriL 10 MG TAB PO SCH ×2 (08:51→20:49)
[2021-10-16] MEDS: GABAPENTIN 400 MG CAP PO SCH ×3 (08:51→20:49)
[2021-10-16] MEDS: PIOGLITAZONE 30 MG TAB PO SCH (08:51)
[2021-10-16] MEDS: FUROSEMIDE 40 MG TAB PO SCH (08:51)
[2021-10-16] MEDS: SYMBICORT 80-4.5 MCG INHALER INHALATION SCH ×2 (08:53→19:58)
[2021-10-16] MEDS: IPRATROPIUM 0.5 MG/2.5 ML NEBU INHALATION SCH ×4 (08:53→19:58)
[2021-10-16 11:08] LABS: Basophils # (A) 0.1 k/uL (0-0.2); Basophils % (A) 1 %; Eosinophils # (A) 0.3 k/uL (0-0.7); Eosinophils % (A) 3 %; HCT 36.1 % (34.0-46.0); HGB 11.1 gm/dL (11.4-16.0); Hypochromasia Slight; Lymphocytes # (A) 2.8 k/uL (1.0-4.8); Lymphocytes % (A) 27 %; MCHC 30.6 g/dL (31.0-37.0); MCV 91.4 fL (80.0-100.0); Mean Platelet Volume 7.2; Monocytes # (A) 0.8 k/uL (0-1.0); Monocytes % (A) 7 %; Neutrophils # (A) 6.2 k/uL (1.3-7.7); Neutrophils % (A) 60 %; Platelet Count 317 k/uL (150-450); RBC 3.95 m/uL (3.80-5.40); RDW 13.6 % (11.5-15.5); WBC 10.4 k/uL (3.8-10.6)
--- NOTE | 2021-10-16 11:11 | P.PN ---
Subjective Progress Note Date: 10/16/21 10/15/21 Pleasant 86-year-old female well-known to the practice who states she has had increasing shortness of breath for the past 3 days with bipedal edema known chronic back pain, patient denies chest pain, recently seen at our office, meds changed for better glucose control BP meds stay the same States she used rescue inhaler several times with no improvement in symptoms 10/16/2021: This 86-year-old white female is well-known to me. She is a history of diastolic congestive heart failure follows with cardiology, type 2 diabetes, hypertension and hyperlipidemia, COPD and is debilitated primarily using a wheelchair due to her morbid obesity. She has been complaining increasing shortness breath for the past week. She denies any chest pains or pressures, nausea or vomiting. She's been using Trilo gy daily and albuterol inhaler when necessary for this but it has not helped. She did not feel her symptoms were significant enough to come in the office. She was found to have some hyperkalemia and received Lasix, CHF per x-ray, abnormal urine consistent with UTI which she is now on oral Cipro for, and debility. Her shortness of breath is better this morning. Her oxygen is 90% on 2 L O2 via nasal cannula. Glucose is been controlled. Urine cultures pending. Continues on her other home meds. Objective - Vital Signs Vital signs: Vital Signs Temp 97.5 F L 10/16/21 08:49 Pulse 76 10/16/21 09:04 Resp 20 10/16/21 08:49 BP 133/69 10/16/21 08:49 Pulse Ox 98 10/16/21 08:49 Intake & Output 10/15/21 10/16/21 10/16/21 18:59 06:59 18:59 Intake Total 800 970 240 Output Total 700 Balance 100 970 240 Weight 113.398 kg Intake: Oral 800 970 240 Output: Urine 700 Other: Voiding Method External Catheter External Catheter # Voids 700 - Exam General: The patient is awake and alert, in no distress, and does not appear a cutely ill. She is morbidly obese. Has nasal cannula oxygen at 2 L/m. Neck: The neck is supple, there is no thyromegaly, lymphadenopathy, tenderness or JVD. Cardiovascular: S1S2 is normal, There is a regular rate and rhythm. No murmur, rub or gallop is appreciated. Respiratory: Lungs are coarse with the inspiratory wheezes and left basilar crackles noted today. Gastrointestinal: Soft, non-distended, non-tender abdomen without masses or organomegaly noted. There is no rebound or guarding present. Bowel sounds are unremarkable. Musculoskeletal: Normal ROM, no tenderness, There is +1 pedal edema. This is her baseline There is no calf tenderness or swelling. No cords were appreciated. Neurological: CN II-XII intact, there are no obvious motor or sensory deficits. Coordination appears grossly intact. Speech is normal. Skin: Skin is warm and dry and no rashes or lesions are noted. - Labs CBC & Chem 7: 10/15/21 00:14 10/15/21 01:48 Labs: Abnormal Lab Results - Last 24 Hours (Table) 10/15/21 10/15/21 10/15/21 Range/Units 11:26 16:16 19:44 POC Glucose (mg/dL) 116 H 146 H 142 H (75-99) mg/dL Microbiology - Last 24 Hours (Table) 10/15/21 01:05 Urine Culture - Preliminary Urine,Voided Assessment and Plan (1) Acute on chronic diastolic (congestive) heart failure Current Visit: Yes Status: Acute Code(s): I50.33 - ACUTE ON CHRONIC DIASTOLIC (CONGESTIVE) HEART FAILURE SNOMED Code(s): 675442415 (2) Acute exacerbation of chronic obstructive pulmonary disease Current Visit: No Status: Acute Code(s): J44.1 - CHRONIC OBSTRUCTIVE PULMONARY DISEASE W (ACUTE) EXACERBATION SNOMED Code(s): 045351717 (3) Dyspnea Current Visit: No Status: Acute Code(s): R06.00 - DYSPNEA, UNSPECIFIED SNOMED Code(s): 291609998 (4) Hyperkalemia Current Visit: No Status: Acute Code(s): E87.5 - HYPERKALEMIA SNOMED Code(s): 61943273 (5) Hypertension Current Visit: No Status: Acute Code(s): I10 - ESSENTIAL (PRIMARY) HYPERTENSION SNOMED Code(s): 50963880 (6) Urinary tract infection Current Visit: No Status: Acute Code(s): N39.0 - URINARY TRACT INFECTION, SITE NOT SPECIFIED SNOMED Code(s): 31861028 (7) Type 2 diabetes mellitus without complications Current Visit: Yes Status: Acute Code(s): E11.9 - TYPE 2 DIABETES MELLITUS WITHOUT COMPLICATIONS SNOMED Code(s): 053893451 (8) Chronic bilateral low back pain with bilateral sciatica Current Visit: Yes Status: Acute Code(s): M54.42 - LUMBAGO WITH SCIATICA, LEFT SIDE; M54.41 - LUMBAGO WITH SCIATICA, RIGHT SIDE; G89.29 - OTHER CHRONIC PAIN SNOMED Code(s): 265939445 (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 I will give her a dose of IV antibiotics form of Levaquin at this time. Consult cardiology for further recommendations regarding her diastolic failure. Increase Lasix to 40 mg twice a day. Add the prednisone for her ongoing wheeze and shortness breath. Repeat labs in a.m. PT/OT evaluate and treat She'll be reevaluated in the next 24 hours.
[2021-10-16 11:25] LABS: Calcium 8.4 mg/dL (8.4-10.2); Potassium 5.3 mmol/L (3.5-5.1)
[2021-10-16 11:28] LABS: Glucose,Whole Blood 121 mg/dL (75-99)
[2021-10-16] MEDS: INSULIN ASPART (NovoLOG) 100 UNIT/ML VIAL SQ SCH ×3 (12:05→20:49)
[2021-10-16] MEDS: predniSONE 10 MG TAB PO SCH (12:17)
[2021-10-16] MEDS: LEVOFLOXACIN 250MG-D5W PMX 250 MG in DEXTROSE/WATER 1 50ML.BAG IVPB SCH (12:18)
[2021-10-16] MEDS: FUROSEMIDE 10 MG/ML 4 ML VIAL IV SCH (13:36)
--- NOTE | 2021-10-16 14:09 | XR ---
EXAMINATION TYPE: XR chest 2V DATE OF EXAM: 10/16/2021 COMPARISON: Yesterday HISTORY: Short of breath TECHNIQUE: 2 views FINDINGS: There is blunting of the costophrenic angles. Heart size is normal. There is no heart failu re. There are chest leads. The bony thorax is intact. IMPRESSION: There is clearing of pulmonary congestion compared to yesterday. Mild pleural effusions w ithout change compared to yesterday. No heart failure.
[2021-10-16] MEDS: ACETAMINOPHEN TAB 325 MG TAB PO PRN (15:51)
[2021-10-16] MEDS: METOPROLOL TARTRATE 50 MG TAB PO SCH ×2 (15:51→20:49)
[2021-10-16 16:34] LABS: Glucose,Whole Blood 160 mg/dL (75-99)
[2021-10-16] MEDS: HYDROcodone/APAP 5-325MG 1 EACH TAB PO PRN ×2 (17:15→23:53)
[2021-10-16 20:34] LABS: Glucose,Whole Blood 214 mg/dL (75-99)
[2021-10-16] MEDS: ATORVASTATIN 40 MG TAB PO SCH (20:49)
[2021-10-17 06:02] LABS: Glucose,Whole Blood 140 mg/dL (75-99)
[2021-10-17] MEDS: LEVOTHYROXINE 50 MCG TAB PO SCH (06:27)
[2021-10-17] MEDS: INSULIN ASPART (NovoLOG) 100 UNIT/ML VIAL SQ SCH ×4 (06:27→21:46)
[2021-10-17 07:13] LABS: Basophils % (A) 0 %; Eosinophils % (A) 0 %; HCT 37.2 % (34.0-46.0); HGB 11.2 gm/dL (11.4-16.0); Hypochromasia Slight; Lymphocytes # (A) 2.2 k/uL (1.0-4.8); Lymphocytes % (A) 28 %; MCH 27.7 pg (25.0-35.0); MCHC 30.2 g/dL (31.0-37.0); MCV 91.6 fL (80.0-100.0); Mean Platelet Volume 7.5; Monocytes # (A) 0.6 k/uL (0-1.0); Monocytes % (A) 7 %; Neutrophils # (A) 4.9 k/uL (1.3-7.7); Neutrophils % (A) 63 %; Platelet Count 331 k/uL (150-450); RBC 4.06 m/uL (3.80-5.40); RDW 13.5 % (11.5-15.5); WBC 7.8 k/uL (3.8-10.6)
[2021-10-17] MEDS: SYMBICORT 80-4.5 MCG INHALER INHALATION SCH ×2 (07:59→20:25)
[2021-10-17] MEDS: IPRATROPIUM 0.5 MG/2.5 ML NEBU INHALATION SCH ×4 (07:59→20:25)
[2021-10-17 08:32] LABS: Calcium 8.2 mg/dL (8.4-10.2); Potassium 5.2 mmol/L (3.5-5.1)
[2021-10-17] MEDS: FUROSEMIDE 10 MG/ML 4 ML VIAL IV SCH (08:35)
[2021-10-17] MEDS: PIOGLITAZONE 30 MG TAB PO SCH (08:35)
[2021-10-17] MEDS: predniSONE 10 MG TAB PO SCH (08:35)
[2021-10-17] MEDS: metFORMIN 500 MG TAB PO SCH ×2 (08:35→21:47)
[2021-10-17] MEDS: lisinopriL 10 MG TAB PO SCH ×2 (08:35→21:47)
[2021-10-17] MEDS: GABAPENTIN 400 MG CAP PO SCH ×3 (08:35→21:46)
[2021-10-17] MEDS: HYDROcodone/APAP 5-325MG 1 EACH TAB PO PRN (08:44)
--- NOTE | 2021-10-17 09:51 | P.PN ---
Subjective 10/15/21 Pleasant 86-year-old female well-known to the practice who states she has had increasing shortness of breath for the past 3 days with bipedal edema known chronic back pain, patient denies chest pain, recently seen at our office, meds changed for better glucose control BP meds stay the same States she used rescue inhaler several times with no improvement in symptoms 10/16/2021: This 86-year-old white female is well-known to me. She is a history of diastolic congestive heart failure follows with cardiology, type 2 diabetes, hypertension and hyperlipidemia, COPD and is debilitated primarily using a wheelchair due to her morbid obesity. She has been complaining increasing shortness breath for the past week. She denies any chest pains or pressures, nausea or vomiting. She's been using Trilogy daily and albuterol inhaler when necessary for this but it has not helped. She did not feel her symptoms were significant enough to come in the office. She was found to have some hyperkalemia and received Lasix, CHF per x-ray, abnormal urine consistent with UTI which she is now on oral Cipro for, and debility. Her shortness of breath is better this morning. Her oxygen is 90% on 2 L O2 via nasal cannula. Glucose is been controlled. Urine cultures pending. Continues on her other home meds. 10/17/21: patient is improved today. Less shortness of breath. Oxygen saturation on 2 L of O2 is 99%.NetThat urine output is 900 ML's past shift. She has an external catheter in place.Labs today shows a slight hype on a tremia at 1:31 and I slightly elevated potassium at 5.2 Cr 1.1 with a GFR now 46.Preliminary analysis shows Griesenauer thousand E. coli. Chest x-ray shows clearing pulmonary congestion compared yesterday mild pleural effusion's without change compared to yesterday. Objective - Vital Signs Vital signs: Vital Signs Temp 97.1 F L 10/17/21 08:32 Pulse 82 10/17/21 08:32 Resp 22 10/17/21 08:32 BP 125/51 10/17/21 08:32 Pulse Ox 99 10/17/21 08:32 Intake & Output 10/16/21 10/17/21 10/17/21 18:59 06:59 18:59 Intake Total 720 230 Output Total 1900 1000 900 Balance -0855 -1000 -670 Intake: IV 10 Invasive Line 1 10 Oral 720 220 Output: Urine 1900 1000 900 Other: Voiding Method External Catheter External Catheter External Catheter - Exam General: The patient is awake and alert, in no distress, and does not appear acutely ill. She is morbidly obese. Has nasal cannula oxygen at 2 L/m. Neck: The neck is supple, there is no thyromegaly, lymphadenopathy, tenderness or JVD. Cardiovascular: S1S2 is normal, There is a regular rate and rhythm. No murmur, rub or gallop is appreciated. Respiratory: Lungs are coarse with the inspiratory wheezes and left basilar crackles How much improved today Gastrointestinal: Soft, non-distended, non-tender abdomen without masses or organomegaly noted. There is no rebound or guarding present. Bowel sounds are unremarkable. Musculoskeletal: Normal ROM, no tenderness, There is +1 pedal edema. This is her baseline There is no calf tenderness or swelling. No cords were appreciated. Neurological: CN II-XII intact, there are no obvious motor or sensory deficits. Coordination appears grossly intact. Speech is normal. Skin: Skin is warm and dry and no rashes or lesions are noted. - Labs CBC & Chem 7: 10/17/21 05:24 10/17/21 05:24 Labs: Abnormal Lab Results - Last 24 Hours (Table) 10/16/21 10/16/21 10/16/21 Range/Units 10:54 10:54 11:26 Hgb 11.1 L (11.4-16.0) gm/dL MCHC 30.6 L (31.0-37.0) g/dL Sodium 132 L (137-145) mmol/L Potassium 5.3 H (3.5-5.1) mmol/L Chloride (98-107) mmol/L BUN 31 H (7-17) mg/dL Creatinine 1.19 H (0.52-1.04) mg/dL Glucose 126 H (74-99) mg/dL POC Glucose (mg/dL) 121 H (75-99) mg/dL Calcium (8.4-10.2) mg/dL 10/16/21 10/16/21 10/17/21 Range/Units 16:31 20:32 05:24 Hgb 11.2 L (11.4-16.0) gm/dL MCHC 30.2 L (31.0-37.0) g/dL Sodium (137-145) mmol/L Potassium (3.5-5.1) mmol/L Chloride (98-107) mmol/L BUN (7-17) mg/dL Creatinine (0.52-1.04) mg/dL Glucose (74-99) mg/dL POC Glucose (mg/dL) 160 H 214 H (75-99) mg/dL Calcium (8.4-10.2) mg/dL 10/17/21 10/17/21 Range/Units 05:24 06:00 Hgb (11.4-16.0) gm/dL MCHC (31.0-37.0) g/dL Sodium 131 L (137-145) mmol/L Potassium 5.2 H (3.5-5.1) mmol/L Chloride 96 L (98-107) mmol/L BUN 34 H (7-17) mg/dL Creatinine 1.11 H (0.52-1.04) mg/dL Glucose 141 H (74-99) mg/dL POC Glucose (mg/dL) 140 H (75-99) mg/dL Calcium 8.2 L (8.4-10.2) mg/dL Microbiology - Last 24 Hours (Table) 10/15/21 01:05 Urine Culture - Preliminary Urine,Voided Gram Neg Bacilli Assessment and Plan (1) Acute on chronic diastolic (congestive) heart failure Current Visit: Yes Status: Acute Code(s): I50.33 - ACUTE ON CHRONIC DIASTOLIC (CONGESTIVE) HEART FAILURE SNOMED Code(s): 848247917 (2) Acute exacerbation of chronic obstructive pulmonary disease Current Visit: No Status: Acute Code(s): J44.1 - CHRONIC OBSTRUCTIVE PULMONARY DISEASE W (ACUTE) EXACERBATION SNOMED Code(s): 433823612 (3) Dyspnea Current Visit: No Status: Acute Code(s): R06.00 - DYSPNEA, UNSPECIFIED SNOMED Code(s): 704878355 (4) Hyperkalemia Current Visit: No Status: Acute Code(s): E87.5 - HYPERKALEMIA SNOMED Code(s): 99700480 (5) Hypertension Current Visit: No Status: Acute Code(s): I10 - ESSENTIAL (PRIMARY) HYPERTENSION SNOMED Code(s): 00266703 (6) Urinary tract infection Current Visit: No Status: Acute Code(s): N39.0 - URINARY TRACT INFECTION, SITE NOT SPECIFIED SNOMED Code(s): 22147160 (7) Type 2 diabetes mellitus without complications Current Visit: Yes Status: Acute Code(s): E11.9 - TYPE 2 DIABETES MELLITUS WITHOUT COMPLICATIONS SNOMED Code(s): 002565686 (8) Chronic bilateral low back pain with bilateral sciatica Current Visit: Yes Status: Acute Code(s): M54.42 - LUMBAGO WITH SCIATICA, LEFT SIDE; M54.41 - LUMBAGO WITH SCIATICA, RIGHT SIDE; G89.29 - OTHER CHRONIC PAIN SNOMED Code(s): 759372179 (9) [facility] prescription opiate use Current Visit: Yes Status: Acute Code(s): Z79.891 - 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 Repeat labs in a.m. PT/OT evaluate and treat She'll be reevaluated in the next 24 hours, or possible D/C later today
[2021-10-17] MEDS ORDERED: SODIUM POLYSTYRENE SULFONATE 15 GM/60 ML BOTTLE PO ONE (09:53)
[2021-10-17] MEDS: LEVOFLOXACIN 250MG-D5W PMX 250 MG in DEXTROSE/WATER 1 50ML.BAG IVPB SCH (11:52)
--- NOTE | 2021-10-17 13:15 | P.CRDCN ---
History of Present Illness Consult date: 10/17/21 History of present illness: HISTORY OF PRESENT ILLNESS: This is a 86 year old female with a past medical history significant for hypertension, hyperlipidemia, diabetes, CKD, and congestive heart failure. Patient follows in the office with Dr. Case. We have been asked to see the patient in consultation for CHF. Patient examined at the bedside. Patient presented to the hospital with a chief complaint of SOB. She denies any chest pain or pressure. The patient was started on IV lasix. She reports improvement in her breathing at the time of examination. Vital signs are stable. * EKG reveals sinus mechanism with no signs of acute ischemia * Chest xray there is clearing of pulmonary congestion compared to yesterday. Mild pleural effusions without change compared to yesterday. No heart failure. * Laboratory data: WBC 7.8. Hemoglobin 11.2. Platelet count 331. Sodium 131. Potassium 5.2. BUN 34. Creatinine 1.11. Magnesium 2.0. Troponin negative 1. ProBNP 4300. * Current home cardiac medications include lisinopril 10 mg twice a day, metoprolol tartrate 50 mg twice a day, Lasix 40 mg daily, aspirin 81 mg daily, and Lipitor 40 mg daily. * Echocardiogram completed revealing ejection fraction 55-60%, moderate aortic stenosis, mild MR, mild TR, moderate pulmonary hypertension REVIEW OF SYSTEMS: At the time of my exam: CONSTITUTIONAL: Denies fever or chills. HEENT: Denies blurred vision, vision changes, or eye pain. Denies hemoptysis CARDIOVASCULAR: Denies chest pain. Denies orthopnea. Denies PND. Denies palpitations RESPIRATORY: Denies shortness of breath. GASTROINTESTINAL: Denies abdominal pain. Denies nausea or vomiting. HEMATOLOGIC: Denies bleeding disorders. GENITOURINARY: Denies any blood in urine. SKIN: Denies pruitis. Denies rash. PHYSICAL EXAM: VITAL SIGNS: Reviewed. GENERAL: Well-developed in no acute distress. HEENT: Head is normocephalic. Pupils are equal, round. Sclerae anicteric. Mucous membranes of the mouth are moist. Neck supple. No JVD or thyromegaly LUNGS: Respirations even and unlabored. Lungs diminished to auscultation bilaterally. HEART: Regular rate and rhythm. S1 and S2 heard. Systolic murmur noted ABDOMEN: Soft. Nondistended. Nontender. EXTREMITIES: Normal range of motion. No clubbing or cyanosis. Peripheral pulses intact. No lower extremity edema NEUROLOGIC: Awake and alert. Oriented x 3. ASSESSMENT: Shortness of breath Acute on chronic congestive heart failure with preserved ejection fraction Moderate aortic stenosis Hypertension Hyperlipidemia Diabetes Chronic kidney disease PLAN: Continue current cardiac medications Discontinue IV Lasix. Begin oral Lasix 80 mg daily starting tomorrow Patient currently stable from a cardiac standpoint Further recommendations pending patient course Nurse practitioner note has been reviewed by physician. Signing provider agrees with the documented findings, assessment, and plan of care. Past Medical History Past Medical History: Chest Pain / Angina, Heart Failure, COPD, CVA/TIA, Diabetes Mellitus, Hyperlipidemia, Hypertension, Osteoarthritis (OA), Thyroid D isorder Additional Past Medical History / Comment(s): Using a wheelchair or a walker, bilateral peripheral neuropathy in feet and hands, chronic low back pain, lower leg edema. Last Myocardial Infarction Date:: 06/17/18 History of Any Multi-Drug Resistant Organisms: ESBL Date of last positivie culture/infection: 09/06/17 MDRO Source:: ESBL URINE Past Surgical History: Back Surgery, Heart Catheterization, Joint Replacement, Orthopedic Surgery Additional Past Surgical History / Comment(s): Lumbar laminectomy decompression fusion L3-4 and L5-S1 with cell saver, lumbar instrumentation removal L4-5, L4- L5 laminectomy, BILATERAL KNEE REPLACEMENTS, ORIF RIGHT ANKLE, CERVICAL FUSION, bilateral rotator cuff repair, bilateral wrist carpal tunnel releases, pain procedures, left breast lumpectomy-benign, bilateral varicose vein stripping, bilateral cataracts. Past Anesthesia/Blood Transfusion Reactions: No Reported Reaction Additional Past Anesthesia/Blood Transfusion Reaction / Comment(s): Pt states she has never received blood. Past Psychological History: No Psychological Hx Reported Additional Psychological History / Comment(s): . Smoking Status: Former smoker Past Alcohol Use History: None Reported Additional Past Alcohol Use History / Comment(s): Pt started smoking in 1955 and quit in 1974. She was a 1.5 ppd smoker. Past Drug Use History: None Reported - Past Family History Father Family Medical History: Myocardial Infarction (IA) Additional Family Medical History / Comment(s): Father at 40 of a IA. Mother Family Medical History: CVA/TIA Additional Family Medical History / Comment(s): Mother had a CVA Medications and Allergies Home Medications Medication Instructions Recorded Confirmed Type Furosemide [Lasix] 40 mg PO DAILY 11/14/13 10/15/21 History Nitroglycerin Sl Tabs [Nitrostat] 0.4 mg SUBLINGUAL Q5M PRN 07/20/15 10/15/21 History Atorvastatin Calcium [Lipitor] 40 mg PO HS #1 tab 08/04/15 10/15/21 Rx metFORMIN HCL [Glucophage] 1,000 mg PO BID 02/20/18 10/15/21 History Cyanocobalamin [Vitamin B-12 1,000 mcg SQ Q30D 07/06/19 10/15/21 History Injection] Gabapentin [Neurontin] 400 mg PO BID@0800,1600 07/06/19 10/15/21 History Gabapentin [Neurontin] 800 mg PO HS 07/06/19 10/15/21 History Levothyroxine Sodium [Synthroid] 50 mcg PO DAILY 07/06/19 10/15/21 History lisinopriL [Zestril] 10 mg PO BID 02/18/20 10/15/21 History Albuterol Nebulized [Ventolin 2.5 mg INHALATION RT-QID PRN 02/19/20 10/15/21 History Nebulized] HYDROcodone/APAP 5-325MG [[place] 1 tab PO Q6HR PRN 12/23/20 10/15/21 History 5-325] Aspirin [Adult Low Dose Aspirin EC] 81 mg PO HS 10/06/21 10/15/21 History Pioglitazone [Actos] 30 mg PO DAILY 10/06/21 10/15/21 History Fluticasone/Umeclidin/Vilanter 1 puff INHALATION RT-HS 10/15/21 10/15/21 History [Trelegy Ellipta 100-62.5-25] Metoprolol Tartrate [Lopressor] 50 mg PO BID@1600,2100 10/15/21 10/15/21 History Metoprolol Tartrate [Lopressor] 100 mg PO DAILY 10/15/21 10/15/21 History Allergies Allergy/AdvReac Type Severity Reaction Status Date / Time Penicillins Allergy Rash/Hives Verified 10/15/21 11:05 Physical Exam Vitals: Vital Signs Temp Pulse Pulse Resp BP Pulse Ox 10/17/21 12:03 97.3 F L 82 20 114/45 95 10/17/21 11:50 84 16 10/17/21 11:40 82 16 10/17/21 08:32 97.1 F L 82 22 125/51 99 10/17/21 08:10 85 16 10/17/21 07:59 84 16 99 10/17/21 04:00 58 L 16 137/65 99 10/17/21 02:00 70 18 10/16/21 23:57 98.1 F 70 18 142/63 96 10/16/21 20:08 85 10/16/21 20:00 98 F 72 20 142/67 95 10/16/21 19:58 84 10/16/21 16:00 97.9 F 93 20 137/60 99 10/16/21 15:53 84 10/16/21 15:43 84 10/16/21 13:51 80 Intake and Output 10/16/21 10/17/21 10/17/21 22:59 06:59 14:59 Intake Total 240 230 Output Total 1100 1000 900 Balance -860 -1000 -670 Intake: IV 10 Invasive Line 1 10 Oral 240 220 Output: Urine 1100 1000 900 Other: Voiding Method External Catheter External Catheter External Catheter Results 10/17/21 05:24 10/17/21 05:24 CBC 10/17/21 Range/Units 05:24 WBC 7.8 (3.8-10.6) k/uL RBC 4.06 (3.80-5.40) m/uL Hgb 11.2 L (11.4-16.0) gm/dL Hct 37.2 (34.0-46.0) % Plt Count 331 (150-450) k/uL Comprehensive Metabolic Panel 10/17/21 Range/Units 05:24 Sodium 131 L (137-145) mmol/L Potassium 5.2 H (3.5-5.1) mmol/L Chloride 96 L (98-107) mmol/L Carbon Dioxide 24 (22-30) mmol/L BUN 34 H (7-17) mg/dL Creatinine 1.11 H (0.52-1.04) mg/dL Glucose 141 H (74-99) mg/dL Calcium 8.2 L (8.4-10.2) mg/dL Current Medications Generic Name Dose Route Start Last Admin Trade Name Freq PRN Reason Stop Dose Admin Acetaminophen 650 mg 10/15/21 01:32 10/16/21 15:51 Acetaminophen Tab 325 Mg Tab PO 650 mg Q6HR PRN Administration Mild Pain or Fever > 100.5 Hydrocodone Bitart/Acetaminophen 1 each 10/15/21 12:15 10/17/21 08:44 Hydrocodone/Apap 5-325mg 1 Each Tab PO 1 each Q6HR PRN Administration Pain Albuterol Sulfate 2.5 mg 10/15/21 02:23 10/15/21 15:17 Albuterol Nebulized 2.5 Mg/3 Ml INHALATION 2.5 mg RT-QID PRN Administration Shortness Of Breath Atorvastatin Calcium 40 mg 10/15/21 21:00 10/16/21 20:49 Atorvastatin 40 Mg Tab PO 40 mg HS LEIGH ANN Administration Budesonide/Formoterol Fumarate 2 puff 10/15/21 20:00 10/17/21 07:59 Symbicort 80-4.5 Mcg Inhaler INHALATION 2 puff RT-BID LEIGH ANN Administration Cyanocobalamin 1,000 mcg 10/19/21 12:00 Cyanocobalamin 1,000 Mcg/Ml 1 Ml Vial SQ Q30D LEIGH ANN Furosemide 60 mg 10/18/21 09:00 Furosemide 10 Mg/Ml 10 Ml Vial IV DAILY LEIGH ANN Gabapentin 800 mg 10/15/21 21:00 10/16/21 20:49 Gabapentin 400 Mg Cap PO 800 mg HS LEIGH ANN Administration Gabapentin 400 mg 10/15/21 16:00 10/17/21 08:35 Gabapentin 400 Mg Cap PO 400 mg BID@0800,1600 LEIGH ANN Administration Levofloxacin/Dextrose 250 mg/ 50 mls @ 50 mls/hr 10/16/21 12:00 10/17/21 11:52 IV Solution IVPB 50 mls/hr Q24H LEIGH ANN Administration Protocol Insulin Aspart 0 unit 10/16/21 12:30 10/17/21 13:05 Insulin Aspart (Novolog) 100 Unit/Ml Vial SQ Not Given ACHS LEIGH ANN Protocol Ipratropium Silvis 0.5 mg 10/15/21 20:00 10/17/21 11:40 Ipratropium 0.5 Mg/2.5 Ml Nebu INHALATION 0.5 mg RT-QID LEIGH ANN Administration Levothyroxine Sodium 50 mcg 10/16/21 06:30 10/17/21 06:27 Levothyroxine 50 Mcg Tab PO 50 mcg 0630 LEIGH ANN Administration Lisinopril 10 mg 10/15/21 09:00 10/17/21 08:35 Lisinopril 10 Mg Tab PO 10 mg BID LEIGH ANN Administration Metformin HCl 1,000 mg 10/15/21 21:00 10/17/21 08:35 Metformin 500 Mg Tab PO 1,000 mg BID LEIGH ANN Administration Metoprolol Tartrate 50 mg 10/15/21 21:00 10/16/21 20:49 Metoprolol Tartrate 50 Mg Tab PO 50 mg BID@1600,2100 LEIGH ANN Administration Naloxone HCl 0.2 mg 10/15/21 01:32 Naloxone 0.4 Mg/Ml 1 Ml Vial IV Q2M PRN Opioid Reversal Nitroglycerin 0.4 mg 10/15/21 12:15 Nitroglycerin Sl Tabs 0.4 Mg Tab SUBLINGUAL Q5M PRN Chest Pain Pioglitazone HCl 30 mg 10/16/21 09:00 10/17/21 08:35 Pioglitazone 30 Mg Tab PO 30 mg DAILY LEIGH ANN Administration Prednisone 50 mg 10/16/21 11:15 10/17/21 08:35 Prednisone 10 Mg Tab PO 10/26/21 11:14 50 mg DAILY LEIGH ANN Administration Taper Intake and Output 10/16/21 10/17/21 10/17/21 22:59 06:59 14:59 Intake Total 240 230 Output Total 1100 1000 900 Balance -860 1000 -974 Intake: IV 10 Invasive Line 1 10 Oral 240 220 Output: Urine 1100 1000 900 Other: Voiding Method External Catheter External Catheter External Catheter 10/17/21 05:24 10/17/21 05:24
[2021-10-17] MEDS ORDERED: ALPRAZolam 0.25 MG TAB PO STA (13:57)
[2021-10-17 16:52] LABS: Glucose,Whole Blood 243 mg/dL (75-99)
[2021-10-17] MEDS: METOPROLOL TARTRATE 50 MG TAB PO SCH ×2 (16:57→21:47)
[2021-10-17 19:41] LABS: Glucose,Whole Blood 211 mg/dL (75-99)
[2021-10-17] MEDS: NITROGLYCERIN SL TABS 0.4 MG TAB SUBLINGUAL PRN ×3 (21:39→21:52)
[2021-10-17] MEDS: ATORVASTATIN 40 MG TAB PO SCH (21:47)
[2021-10-17] MEDS ORDERED: ONDANSETRON 4 MG/2 ML VIAL IVP STA (22:28)
[2021-10-17] MEDS ORDERED: HYDROmorphone 0.5 MG/0.5 ML SYRINGE IVP STA (22:28)
[2021-10-18] MEDS ORDERED: HEPARIN SODIUM 1,000 UN/ML (10ML VL) IV PRN (00:34)
[2021-10-18] MEDS ORDERED: HEPARIN SODIUM 1,000 UN/ML (10ML VL) IV ONE (00:34)
[2021-10-18] MEDS ORDERED: NITROGLYCERIN OINT 1 INCH/GM PACKET TOPICAL STA (00:35)
[2021-10-18] MEDS: HEPARIN SOD,PORK IN 0.45% NACL 25,000 UNIT in 0.45% NACL 1 250ML.BAG IV SCH ×2 (00:46→21:28)
[2021-10-18 06:12] LABS: Glucose,Whole Blood 111 mg/dL (75-99)
[2021-10-18] MEDS: INSULIN ASPART (NovoLOG) 100 UNIT/ML VIAL SQ SCH ×4 (06:36→20:39)
[2021-10-18] MEDS: LEVOTHYROXINE 50 MCG TAB PO SCH (06:37)
[2021-10-18] MEDS: metFORMIN 500 MG TAB PO SCH ×2 (08:16→20:38)
[2021-10-18] MEDS: GABAPENTIN 400 MG CAP PO SCH ×3 (08:16→20:39)
[2021-10-18] MEDS: lisinopriL 10 MG TAB PO SCH ×2 (08:17→20:39)
[2021-10-18] MEDS: predniSONE 10 MG TAB PO SCH (08:17)
[2021-10-18] MEDS: PIOGLITAZONE 30 MG TAB PO SCH (08:17)
[2021-10-18] MEDS: IPRATROPIUM 0.5 MG/2.5 ML NEBU INHALATION SCH ×4 (08:26→18:47)
[2021-10-18] MEDS: SYMBICORT 80-4.5 MCG INHALER INHALATION SCH ×2 (08:26→18:47)
[2021-10-18] MEDS ORDERED: FUROSEMIDE 80 MG TAB PO SCH (09:00)
[2021-10-18] MEDS ORDERED: FUROSEMIDE 10 MG/ML 10 ML VIAL IV SCH (09:00)
[2021-10-18 09:09] LABS: Calcium 8.1 mg/dL (8.4-10.2); Potassium 4.9 mmol/L (3.5-5.1)
[2021-10-18] MEDS: HYDROcodone/APAP 5-325MG 1 EACH TAB PO PRN (09:40)
[2021-10-18] MEDS ORDERED: ALPRAZolam 0.5 MG TAB PO PRN (11:18)
[2021-10-18] MEDS ORDERED: NITROGLYCERIN SL TABS 0.4 MG TAB SUBLINGUAL PRN (11:18)
[2021-10-18 11:35] LABS: Glucose,Whole Blood 182 mg/dL (75-99)
[2021-10-18] MEDS ORDERED: ONDANSETRON 4 MG/2 ML VIAL IVP PRN (12:04)
--- NOTE | 2021-10-18 12:23 | P.PN ---
Subjective Progress Note Date: 10/18/21 Developed chest pain during the night, troponins increased to 0.129, 0.130. Heparin drip initiated . Scheduled for cardiac cath tomorrow. Telemetry sinus rhythm. This morning denies chest pain, palpitations or shortness of breath. Complains of nausea. Urine culture reporting E. coli, resistant to quinolones, antibiotics adjusted. Creatinine worsening, 1.20. Sodium 131. Objective - Vital Signs Vital signs: Vital Signs Temp 98.1 F 10/18/21 08:24 Pulse 90 10/18/21 11:26 Resp 16 10/18/21 08:24 BP 147/63 10/18/21 08:24 Pulse Ox 98 10/18/21 08:24 Intake & Output 10/17/21 10/18/21 10/18/21 18:59 06:59 18:59 Intake Total 590 84.5 Output Total 1450 800 Balance -860 -800 84.5 Weight 121.5 kg Intake: IV 10 Invasive Line 1 10 Intake, IV Titration 84.5 Amount Heparin Sod,Pork in 0.45% 84.5 NaCl 25,000 unit In 0.45 % NaCl 1 250ml.bag @ 8. 8184 UNITS/KG/HR 10 mls/ hr IV .Q24H [facility] Rx#: [id number] Oral 580 Output: Urine 1450 800 Other: Voiding Method External Catheter External Catheter # Voids 2 - Exam - Exam General: Sitting up in bed, alert and oriented 3, NAD Neck: supple, no JVD. Cardiovascular: S1S2 is normal, regular rate and rhythm. Systolic murmur. Respiratory: Lungs are coarse with the inspiratory wheezes and left basilar cr ackles How much improved today Gastrointestinal: Soft, non-distended, non-tender without organomegaly noted.no rebound or guarding present. Positive Bowel sounds. Musculoskeletal: Normal ROM, no tenderness, +1 pedal edema- baseline,no calf tenderness. Neurological: CN II-XII intact, there are no obvious motor or sensory deficits. Coordination appears grossly intact. Skin: Skin is warm and dry and no rashes noted. - Labs CBC & Chem 7: 10/17/21 05:24 10/18/21 07:36 Labs: Abnormal Lab Results - Last 24 Hours (Table) 10/17/21 10/17/21 10/17/21 Range/Units 16:51 19:40 22:36 APTT (22.0-30.0) sec Sodium (137-145) mmol/L Chloride (98-107) mmol/L Carbon Dioxide (22-30) mmol/L BUN (7-17) mg/dL Creatinine (0.52-1.04) mg/dL Glucose (74-99) mg/dL POC Glucose (mg/dL) 243 H 211 H (75-99) mg/dL Calcium (8.4-10.2) mg/dL Troponin I 0.129 H* (0.000-0.034) ng/mL 10/18/21 10/18/21 10/18/21 Range/Units 06:10 07:36 07:36 APTT 37.5 H (22.0-30.0) sec Sodium 131 L (137-145) mmol/L Chloride 93 L (98-107) mmol/L Carbon Dioxide 31 H (22-30) mmol/L BUN 41 H (7-17) mg/dL Creatinine 1.20 H (0.52-1.04) mg/dL Glucose 115 H (74-99) mg/dL POC Glucose (mg/dL) 111 H (75-99) mg/dL Calcium 8.1 L (8.4-10.2) mg/dL Troponin I (0.000-0.034) ng/mL 10/18/21 10/18/21 Range/Units 07:36 11:33 APTT (22.0-30.0) sec Sodium (137-145) mmol/L Chloride (98-107) mmol/L Carbon Dioxide (22-30) mmol/L BUN (7-17) mg/dL Creatinine (0.52-1.04) mg/dL Glucose (74-99) mg/dL POC Glucose (mg/dL) 182 H (75-99) mg/dL Calcium (8.4-10.2) mg/dL Troponin I 0.130 H* (0.000-0.034) ng/mL Microbiology - Last 24 Hours (Table) 10/15/21 01:05 Urine Culture - Final Urine,Voided Escherichia coli Assessment and Plan Assessment: Chest pain, elevated troponins,ruling out ACS, cardiology following. (1) Acute on chronic diastolic (congestive) heart failure Current Visit: Yes Status: Acute Code(s): I50.33 - ACUTE ON CHRONIC DIASTOLIC (CONGESTIVE) HEART FAILURE SNOMED Code(s): 927713480 (2) Acute exacerbation of chronic obstructive pulmonary disease Current Visit: No Status: Acute Code(s): J44.1 - CHRONIC OBSTRUCTIVE PULMONARY DISEASE W (ACUTE) EXACERBATION SNOMED Code(s): 751547125 (3) Dyspnea Current Visit: No Status: Acute Code(s): R06.00 - DYSPNEA, UNSPECIFIED SNOMED Code(s): 729267253 (4) Hyperkalemia Current Visit: No Status: Acute Code(s): E87.5 - HYPERKALEMIA SNOMED Cod e(s): 21017849 (5) Hypertension Current Visit: No Status: Acute Code(s): I10 - ESSENTIAL (PRIMARY) HYPERTENSION SNOMED Code(s): 98125218 (6) Urinary tract infection, E. coli resistant to quinolones Current Visit: No Status: Acute Code(s): N39.0 - URINARY TRACT INFECTION, SITE NOT SPECIFIED SNOMED Code(s): 45998155 (7) Type 2 diabetes mellitus without complications Current Visit: Yes Status: Acute Code(s): E11.9 - TYPE 2 DIABETES MELLITUS W ITHOUT COMPLICATIONS SNOMED Code(s): 622820678 (8) Chronic bilateral low back pain with bilateral sciatica Current Visit: Yes Status: Acute Code(s): M54.42 - LUMBAGO WITH SCIATICA, LEFT SIDE; M54.41 - LUMBAGO WITH SCIATICA, RIGHT SIDE; G89.29 - OTHER CHRONIC PAIN SNOMED Code(s): 241751347 (9) meterman prescription opiate use Current Visit: Yes Status: Acute Code(s): Z79.891 - CREDIT CARD CONTROL CLERK (CURRENT) USE OF OPIATE ANALGESIC SNOMED Code(s): 603610536 (10) Acquired hypothyroidism Current Visit: Yes Status: Acute Code(s): E03.9 - HYPOTHYROIDISM, UNSPECIFIED SNOMED Code(s): 965586914 (11) Debility Current Visit: Yes Status: Acute Code(s): R53.81 - OTHER MALAISE SNOMED Code(s): 90514416 Plan: Continue on current medication regime ,monitoring and symptomatic treatment. Diuretics as per cardiology.Anticoagulated on heparin drip. Scheduled for cardiac catheterization tomorrow. Close monitoring of renal function. Antibiotics converted to Ceftin secondary to resistance to quinolones. The impression and plan of care has been dictated as directed. : I performed a history and examination of this patient, discussed the same with the dictator. I agree with the dictator's note ,documented as a scribe. Any additional findings or plans will be noted.
[2021-10-18] MEDS: SENNOSIDES-DOCUSATE SODIUM 1 EACH TAB PO SCH ×2 (13:55→20:39)
[2021-10-18] MEDS: DOCUSATE 100 MG CAP PO SCH ×2 (13:55→20:41)
[2021-10-18] MEDS: PSYLLIUM HUSK 100% 6 GM PACKET PO SCH (13:55)
--- NOTE | 2021-10-18 14:36 | P.PN ---
Subjective Progress Note Date: 10/18/21 HISTORY OF PRESENT ILLNESS: This is a 86 year old female with a past medical history significant for hypertension, hyperlipidemia, diabetes, CKD, and congestive heart failure. Patient follows in the office with Dr. Case. We have been asked to see the patient in consultation for CHF. Patient examined at the bedside. Patient presented to the hospital with a chief complaint of SOB. She denies any chest pain or pressure. The patient was started on IV lasix. She reports improvement in her breathing at the time of examination. Vital signs are stable. * EKG reveals sinus mechanism with no signs of acute ischemia * Chest xray there is clearing of pulmonary congestion compared to yesterday. Mild pleural effusions without change compared to yesterday. No heart failure. * Laboratory data: WBC 7.8. Hemoglobin 11.2. Platelet count 331. Sodium 131. Potassium 5.2. BUN 34. Creatinine 1.11. Magnesium 2.0. Troponin negative 1. ProBNP 4300. * Current home cardiac medications include lisinopril 10 mg twice a day, metoprolol tartrate 50 mg twice a day, Lasix 40 mg daily, aspirin 81 mg daily, and Lipitor 40 mg daily. * Echocardiogram completed revealing ejection fraction 55-60%, moderate aortic stenosis, mild MR, mild TR, moderate pulmonary hypertension 10/18/2021 Patient examined this morning at the bedside. Patient had an episode of chest discomfort overnight. She reports having left-sided chest pain that radiated into her left arm and associated nausea. An EKG was completed which did not reveal any ischemic changes. Troponins were completed which came back elevated at 0.129 and 0.130. The patient has been started on IV heparin. At the time of examination, she denies any chest pain or pressure. Vital signs stable. PHYSICAL EXAM: VITAL SIGNS: Reviewed. GENERAL: Well-developed in no acute distress. HEENT: Head is normocephalic. Pupils are equal, round. Sclerae anicteric. Mucous membranes of the mouth are moist. Neck supple. No JVD or thyromegaly LUNGS: Respirations even and unlabored. Lungs diminished to auscultation bilaterally. HEART: Regular rate and rhythm. S1 and S2 heard. Systolic murmur noted ABDOMEN: Soft. Nondistended. Nontender. EXTREMITIES: Normal range of motion. No clubbing or cyanosis. Peripheral pulses intact. No lower extremity edema NEUROLOGIC: Awake and alert. Oriented x 3. ASSESSMENT: Shortness of breath Acute on chronic congestive heart failure with preserved ejection fraction Moderate aortic stenosis Hypertension Hyperlipidemia Diabetes Chronic kidney disease PLAN: Continue current cardiac medications Add Aspirin 81 mg daily Decrease Lasix to 40 mg daily Continue IV heparin Patient to undergo cardiac cath tomorrow with Dr. Case Further recommendations pending patient course Nurse practitioner note has been reviewed by physician. Signing provider agrees with the documented findings, assessment, and plan of care. Objective - Vital Signs Vital signs: Vital Signs Temp 97.7 F 10/18/21 12:00 Pulse 71 10/18/21 12:00 Resp 16 10/18/21 12:00 BP 125/57 10/18/21 12:00 Pulse Ox 98 10/18/21 12:00 Intake & Output 10/17/21 10/18/21 10/18/21 18:59 06:59 18:59 Intake Total 590 324.5 Output Total 1450 800 Balance -860 -800 324.5 Weight 121.5 kg Intake: IV 10 Invasive Line 1 10 Intake, IV Titration 84.5 Amount Heparin Sod,Pork in 0.45% 84.5 NaCl 25,000 unit In 0.45 % NaCl 1 250ml.bag @ 8. 8184 UNITS/KG/HR 10 mls/ hr IV .Q24H [facility] Rx#: [id number] Oral 580 240 Output: Urine 1450 800 Other: Voiding Method External Catheter External Catheter # Voids 2 - Labs CBC & Chem 7: 10/17/21 05:24 10/18/21 07:36 Labs: Abnormal Lab Results - Last 24 Hours (Table) 10/17/21 10/17/21 10/17/21 Range/Units 16:51 19:40 22:36 APTT (22.0-30.0) sec Sodium (137-145) mmol/L Chloride (98-107) mmol/L Carbon Dioxide (22-30) mmol/L BUN (7-17) mg/dL Creatinine (0.52-1.04) mg/dL Glucose (74-99) mg/dL POC Glucose (mg/dL) 243 H 211 H (75-99) mg/dL Calcium (8.4-10.2) mg/dL Troponin I 0.129 H* (0.000-0.034) ng/mL 10/18/21 10/18/21 10/18/21 Range/Units 06:10 07:36 07:36 APTT 37.5 H (22.0-30.0) sec Sodium 131 L (137-145) mmol/L Chloride 93 L (98-107) mmol/L Carbon Dioxide 31 H (22-30) mmol/L BUN 41 H (7-17) mg/dL Creatinine 1.20 H (0.52-1.04) mg/dL Glucose 115 H (74-99) mg/dL POC Glucose (mg/dL) 111 H (75-99) mg/dL Calcium 8.1 L (8.4-10.2) mg/dL Troponin I (0.000-0.034) ng/mL 10/18/21 10/18/21 Range/Units 07:36 11:33 APTT (22.0-30.0) sec Sodium (137-145) mmol/L Chloride (98-107) mmol/L Carbon Dioxide (22-30) mmol/L BUN (7-17) mg/dL Creatinine (0.52-1.04) mg/dL Glucose (74-99) mg/dL POC Glucose (mg/dL) 182 H (75-99) mg/dL Calcium (8.4-10.2) mg/dL Troponin I 0.130 H* (0.000-0.034) ng/mL Microbiology - Last 24 Hours (Table) 10/15/21 01:05 Urine Culture - Final Urine,Voided Escherichia coli
[2021-10-18 16:20] LABS: Glucose,Whole Blood 186 mg/dL (75-99)
[2021-10-18] MEDS: METOPROLOL TARTRATE 50 MG TAB PO SCH ×2 (16:21→20:39)
[2021-10-18 19:40] LABS: Glucose,Whole Blood 195 mg/dL (75-99)
[2021-10-18] MEDS: ATORVASTATIN 40 MG TAB PO SCH (20:39)
[2021-10-18] MEDS: SODIUM CHLORIDE 0.9% 1,000 ML in EMPTY BAG 1 BAG IV SCH (23:07)
[2021-10-19] MEDS ORDERED: ATORVASTATIN 80 MG TAB PO ONE (05:00)
[2021-10-19] MEDS ORDERED: ASPIRIN 325 MG TAB PO ONE (05:00)
[2021-10-19 05:23] LABS: Glucose,Whole Blood 130 mg/dL (75-99)
[2021-10-19] MEDS: HEPARIN SOD,PORK IN 0.45% NACL 25,000 UNIT in 0.45% NACL 1 250ML.BAG IV SCH ×2 (05:38→16:45)
[2021-10-19] MEDS: INSULIN ASPART (NovoLOG) 100 UNIT/ML VIAL SQ SCH ×5 (05:39→20:55)
[2021-10-19] MEDS: ASPIRIN 81 MG PO SCH (05:39)
[2021-10-19] MEDS: PIOGLITAZONE 30 MG TAB PO SCH (05:40)
[2021-10-19] MEDS: metFORMIN 500 MG TAB PO SCH (05:40)
[2021-10-19] MEDS: lisinopriL 10 MG TAB PO SCH ×2 (05:45→20:54)
[2021-10-19] MEDS: LEVOTHYROXINE 50 MCG TAB PO SCH (05:45)
[2021-10-19] MEDS: predniSONE 10 MG TAB PO SCH (05:45)
[2021-10-19] MEDS: GABAPENTIN 400 MG CAP PO SCH ×3 (05:46→20:54)
[2021-10-19 06:53] LABS: Calcium 7.9 mg/dL (8.4-10.2)
[2021-10-19] MEDS ORDERED: HEPARIN SODIUM,PORCINE 10,000 UNIT in SODIUM CHLORIDE 0.9% 1,000 ML IRRIGATION PRN (07:00)
[2021-10-19] MEDS ORDERED: HEPARIN SODIUM,PORCINE 2,500 UNIT in SODIUM CHLORIDE 0.9% 250 ML IRRIGATION PRN (07:00)
[2021-10-19] MEDS: DOCUSATE 100 MG CAP PO SCH ×2 (08:18→20:54)
[2021-10-19] MEDS: SODIUM CHLORIDE 0.9% 1,000 ML in EMPTY BAG 1 BAG IV SCH (08:18)
[2021-10-19] MEDS: SYMBICORT 80-4.5 MCG INHALER INHALATION SCH ×2 (08:53→20:36)
[2021-10-19] MEDS: IPRATROPIUM 0.5 MG/2.5 ML NEBU INHALATION SCH ×4 (08:53→20:36)
[2021-10-19 10:26] LABS: HCT 33.3 % (34.0-46.0); HGB 10.6 gm/dL (11.4-16.0); Hypochromasia Moderate; MCH 28.7 pg (25.0-35.0); MCHC 31.7 g/dL (31.0-37.0); MCV 90.6 fL (80.0-100.0); Mean Platelet Volume 7.8; Platelet Count 328 k/uL (150-450); RBC 3.68 m/uL (3.80-5.40); WBC 11.9 k/uL (3.8-10.6)
[2021-10-19] MEDS: SENNOSIDES-DOCUSATE SODIUM 1 EACH TAB PO SCH ×2 (11:52→20:54)
[2021-10-19] MEDS: PSYLLIUM HUSK 100% 6 GM PACKET PO SCH (11:52)
[2021-10-19 11:57] LABS: Glucose,Whole Blood 208 mg/dL (75-99)
[2021-10-19] MEDS ORDERED: CYANOCOBALAMIN 1,000 MCG/ML 1 ML VIAL SQ SCH (12:00)
[2021-10-19] MEDS: FUROSEMIDE 40 MG TAB PO SCH (12:56)
--- NOTE | 2021-10-19 13:16 | P.PN ---
Subjective Progress Note Date: 10/19/21 Developed chest pain during the night, troponins increased to 0.129, 0.130. Heparin drip initiated . Scheduled for cardiac cath tomorrow. Telemetry sinus rhythm. This morning denies chest pain, palpitations or shortness of breath. Complains of nausea. Urine culture reporting E. coli, resistant to quinolones, antibiotics adjusted. Creatinine worsening, 1.20. Sodium 131. 10/19/2021 creatinine decreased to 1.07. Maintained on heparin drip. Scheduled for cardiac catheterization today. Telemetry sinus rhythm. Denies chest pain, palpitations or shortness of breath. Maintaining O2 sats in the mid 90s on room air. Continues on ceftriaxone for E. coli UTI. Afebrile. Objective - Vital Signs Vital signs: Vital Signs Temp 97.9 F 10/19/21 08:00 Pulse 78 10/19/21 12:26 Resp 17 10/19/21 11:55 BP 150/58 10/19/21 11:55 Pulse Ox 93 L 10/19/21 11:55 Intake & Output 10/18/21 10/19/21 10/19/21 18:59 06:59 18:59 Intake Total 648.9 734.033 178.86 Output Total 2100 1300 Balance -1451.1 -565.967 178.86 Weight 122.5 kg Intake: IV 121 Sodium Chloride 0.9% 1, 121 000 ml In Empty Bag 1 bag @ 1 ML/KG/HR 121.5 mls/ hr IV .Q8H14M [facility] Rx#: [id number] Intake, IV Titration 168.9 73.033 178.86 Amount Heparin Sod,Pork in 0.45% 168.9 73.033 178.86 NaCl 25,000 unit In 0.45 % NaCl 1 250ml.bag @ 8. 8184 UNITS/KG/HR 10 mls/ hr IV .Q24H [facility] Rx#: [id number] Oral 480 540 Output: Urine 2100 1300 Other: Voiding Method External Catheter - Exam - Exam General: Sitting up in bed, alert and oriented 3, NAD Neck: supple, no JVD. Cardiovascular: S1S2 is normal, regular rate and rhythm. Systolic murmur. Respiratory: Lungs are coarse with the inspiratory wheezes and fine left basilar crackles Gastrointestinal: Soft, non-distended, non-tender without organomegaly noted.no rebound or guarding present. Positive Bowel sounds. Musculoskeletal: Normal ROM, no tenderness, +1 pedal edema- baseline,no calf tenderness. Neurological: CN II-XII intact, no focal deficits. Strength and sensation grossly intact Skin: Skin is warm and dry,no rashes noted. - Labs CBC & Chem 7: 10/19/21 06:29 10/19/21 06:29 Labs: Abnormal Lab Results - Last 24 Hours (Table) 10/18/21 10/18/21 10/18/21 Range/Units 15:01 16:17 19:35 WBC (3.8-10.6) k/uL RBC (3.80-5.40) m/uL Hgb (11.4-16.0) gm/dL Hct (34.0-46.0) % APTT 42.8 H (22.0-30.0) sec Sodium (137-145) mmol/L Chloride (98-107) mmol/L BUN (7-17) mg/dL Creatinine (0.52-1.04) mg/dL Glucose (74-99) mg/dL POC Glucose (mg/dL) 186 H 195 H (75-99) mg/dL Calcium (8.4-10.2) mg/dL 10/18/21 10/19/21 10/19/21 Range/Units 21:28 05:21 06:29 WBC (3.8-10.6) k/uL RBC (3.80-5.40) m/uL Hgb (11.4-16.0) gm/dL Hct (34.0-46.0) % APTT 48.4 H (22.0-30.0) sec Sodium 131 L (137-145) mmol/L Chloride 97 L (98-107) mmol/L BUN 40 H (7-17) mg/dL Creatinine 1.07 H (0.52-1.04) mg/dL Glucose 134 H (74-99) mg/dL POC Glucose (mg/dL) 130 H (75-99) mg/dL Calcium 7.9 L (8.4-10.2) mg/dL 10/19/21 10/19/21 10/19/21 Range/Units 06:29 08:36 11:37 WBC 11.9 H (3.8-10.6) k/uL RBC 3.68 L (3.80-5.40) m/uL Hgb 10.6 L (11.4-16.0) gm/dL Hct 33.3 L (34.0-46.0) % APTT 80.0 H (22.0-30.0) sec Sodium (137-145) mmol/L Chloride (98-107) mmol/L BUN (7-17) mg/dL Creatinine (0.52-1.04) mg/dL Glucose (74-99) mg/dL POC Glucose (mg/dL) 208 H (75-99) mg/dL Calcium (8.4-10.2) mg/dL Assessment and Plan Assessment: Chest pain, elevated troponins,ruling out ACS, cardiology following. (1) Acute on chronic diastolic (congestive) heart failure Current Visit: Yes Status: Acute Code(s): I50.33 - ACUTE ON CHRONIC DIASTOLIC (CONGESTIVE) HEART FAILURE SNOMED Code(s): 475823545 (2) Acute exacerbation of chronic obstructive pulmonary disease Current Visit: No Status: Acute Code(s): J44.1 - CHRONIC OBSTRUCTIVE PULMONARY DISEASE W (ACUTE) EXACERBATION SNOMED Code(s): 651167006 (3) Dyspnea Current Visit: No Status: Acute Code(s): R06.00 - DYSPNEA, UNSPECIFIED SNOMED Code(s): 685770575 (4) Hyperkalemia Current Visit: No Status: Acute Code(s): E87.5 - HYPERKALEMIA SNOMED Code(s): 13172605 (5) Hypertension Current Visit: No Status: Acute Code(s): I10 - ESSENTIAL (PRIMARY) HYPERTENSION SNOMED Code(s): 23050690 (6) Urinary tract infection, E. coli resistant to quinolones Current Visit: No Status: Acute Code(s): N39.0 - URINARY TRACT INFECTION, SI TE NOT SPECIFIED SNOMED Code(s): 63874787 (7) Type 2 diabetes mellitus without complications Current Visit: Yes Status: Acute Code(s): E11.9 - TYPE 2 DIABETES MELLITUS WITHOUT COMPLICATIONS SNOMED Code(s): 921896925 (8) Chronic bilateral low back pain with bilateral sciatica Current Visit: Yes Status: Acute Code(s): M54.42 - LUMBAGO WITH SCIATICA, LE FT SIDE; M54.41 - LUMBAGO WITH SCIATICA, RIGHT SIDE; G89.29 - OTHER CHRONIC PAIN SNOMED Code(s): 213038931 (9) snf prescription opiate use Current Visit: Yes Status: Acute Code(s): 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 Cardiac catheterization pending. Close monitoring of renal function, with repeat labs ordered for a.m. The impression and plan of care has been dictated as directed. : I performed a history and examination of this patient, discussed the same with the dictator. I agree with the dictator's note ,documented as a scribe. Any additional findings or plans will be noted.
[2021-10-19 16:19] LABS: Glucose,Whole Blood 184 mg/dL (75-99)
[2021-10-19] MEDS: METOPROLOL TARTRATE 50 MG TAB PO SCH ×2 (16:39→20:54)
[2021-10-19 19:40] LABS: Glucose,Whole Blood 181 mg/dL (75-99)
[2021-10-19] MEDS: ATORVASTATIN 40 MG TAB PO SCH (20:54)
[2021-10-19] MEDS: ALPRAZolam 0.25 MG TAB PO PRN (20:56)
[2021-10-20] MEDS ORDERED: ATORVASTATIN 80 MG TAB PO ONE (05:00)
[2021-10-20] MEDS ORDERED: ASPIRIN 325 MG TAB PO ONE (05:00)
[2021-10-20] MEDS: GABAPENTIN 400 MG CAP PO SCH ×3 (05:33→20:55)
[2021-10-20] MEDS: predniSONE 10 MG TAB PO SCH (05:33)
[2021-10-20] MEDS: lisinopriL 10 MG TAB PO SCH ×2 (05:34→20:54)
[2021-10-20] MEDS: LEVOTHYROXINE 50 MCG TAB PO SCH (05:34)
[2021-10-20] MEDS: FUROSEMIDE 40 MG TAB PO SCH (05:34)
[2021-10-20 05:35] LABS: Glucose,Whole Blood 129 mg/dL (75-99)
[2021-10-20] MEDS: INSULIN ASPART (NovoLOG) 100 UNIT/ML VIAL SQ SCH ×4 (05:35→20:57)
[2021-10-20] MEDS: ASPIRIN 81 MG PO SCH (05:36)
[2021-10-20] MEDS: SODIUM CHLORIDE 0.9% 1,000 ML in EMPTY BAG 1 BAG IV SCH ×3 (06:30→16:39)
[2021-10-20] MEDS ORDERED: IV FLUID CONTINUATION 1,000 ML IV ONE (07:24)
[2021-10-20] MEDS: SYMBICORT 80-4.5 MCG INHALER INHALATION SCH ×2 (07:28→21:22)
[2021-10-20] MEDS: IPRATROPIUM 0.5 MG/2.5 ML NEBU INHALATION SCH ×5 (07:28→21:22)
[2021-10-20] MEDS ORDERED: fentaNYL (PF) 50 MCG/ML 2 ML AMP IV ONE ×2 (07:38→07:40)
[2021-10-20] MEDS ORDERED: LIDOCAINE 1% INJ 10MG/ML (5 ML VIAL-PF) SQ ONE (07:39)
[2021-10-20] MEDS ORDERED: MIDAZOLAM 2 MG/2 ML VIAL IV ONE (07:40)
[2021-10-20] MEDS ORDERED: VERAPAMIL SYRINGE (5 MG/10 ML) INTRAARTER ONE (07:42)
[2021-10-20] MEDS: HEPARIN SODIUM 1,000 UN/ML (10ML VL) IV ONE ×3 (07:50→08:38)
[2021-10-20] MEDS ORDERED: CLOPIDOGREL 75 MG TAB PO ONE (08:00)
[2021-10-20] MEDS ORDERED: NITROGLYCERIN 1000MCG/10ML SYRINGE INTRACORON ONE (08:05)
[2021-10-20] MEDS ORDERED: IOPAMIDOL-370 125ML BTL INJ ONE (08:10)
[2021-10-20] MEDS ORDERED: SODIUM CHLORIDE 0.9% 1,000 ML IV ONE (08:45)
[2021-10-20] MEDS ORDERED: IOPAMIDOL-370 100ML BTL INJ ONE ×2 (09:03→09:17)
[2021-10-20] MEDS ORDERED: NITROGLYCERIN SL TABS 0.4 MG TAB SUBLINGUAL PRN (09:27)
[2021-10-20] MEDS ORDERED: MAG HYDROX/AL HYDROX/SIMETH 30 ML CUP PO PRN (09:27)
[2021-10-20] MEDS ORDERED: RX INFO: IV CONTRAST WAS GIVEN 1 EACH MISC MISCELLANE PRN (09:27)
[2021-10-20] MEDS ORDERED: ATROPINE SULFATE 0.1 MG/ML 10ML SYRINGE IV PRN (09:27)
[2021-10-20] MEDS ORDERED: ZOLPIDEM 5 MG TAB PO PRN (09:27)
[2021-10-20] MEDS ORDERED: SODIUM CHLORIDE 0.9% 1,000 ML in EMPTY BAG 1 BAG IV SCH (09:30)
--- NOTE | 2021-10-20 09:36 | P.CARDCATH ---
Date of Procedure: 10/20/21 Description of Procedure: Cardiac Catheterization: The patient is an 86-year-old female with known history of hypertension, hyperlipidemia and diabetes mellitus who presented with dyspnea and had chest discomfort with mild troponin elevation. Recommendations were made regarding cardiac catheterization, the risks and the complications were discussed with the patient who is in full understanding and agreement. Procedure Description: Patient was brought to labor trainer in fasting semi-sedated state after receiving Fentanyl and Benadryl achieiving moderate conscious sedated state. Using Xylocaine Anesthesia and Seldinger technique, a 6-Maldivian sheath was introduced in the right radial artery . Subsequently, selective coronary angiography performed using a 5-Maldivian 8.5 bend Nikki catheter. Multiple views of the coronary artery including hemiaxial views were obtained. The 5-Maldivian Pigtail catheter was used to cross the aortic valve and LVEDP was calculated. Images were reviewed. The patient received intra-arterial verapamil. Findings: Fluoroscopy reveals severe calcification involving all the coronary arteries predominantly in the LAD. Left main: This is a large size vessel, bifurcating into LAD and left circumflex, left main has no high-grade stenosis. LAD: This is a large size vessel, heavily calcified, giving rise to a large diagonal branch proximally. The proximal LAD has an eccentric 80% stenosis and after the takeoff of the diagonal branch there is an 85-90%. The takeoff of the diagonal branch has about a 60% stenosis. Left circumflex: This is a codominant vessel giving rise to a moderate size OM1 and distally bifurcating to PDA and PLV. The OM1 has a 99% stenosis. RCA: This is a codominant vessel, moderate caliber. Has a 60-70% stenosis the rest of the vessel has no high-grade stenosis Left Ventriculogram: Was not performed Hemodynamics: There was no gradient across the aortic valve, LVEDP 15-20 mmHg Conclusion: 1. Calcified coronary arteries 2. Critical stenosis in OM1 3. Severe stenosis in the proximal and mid LAD 4. Moderate severe stenosis in the mid RCA Recommendations: In view of the findings and the anatomy I have recommended to proceed with angioplasty and stenting of the left circumflex and the LAD and reevaluate the RCA at that time the procedure as well as the risks and the complications were discussed with the patient who was in understanding and agreement.
--- NOTE | 2021-10-20 09:44 | P.CARDCATH ---
Date of Procedure: 10/20/21 Description of Procedure: PERCUTANEOUS TRANSLUMINAL CORONARY ANGIOPLASTY CLINICAL INFORMATION: The patient is an 86-year-old female with a known history of hypertension, hyperlipidemia and diabetes mellitus who presented with non- STEMI, underwent cardiac catheterization, was found to have heavily calcified coronary arteries severe stenoses in the obtuse marginal branch 1, mid and proximal LAD as well as the mid RCA. Recommendations were made regarding angioplasty and stenting, the procedure as well as the risks and the complications were discussed with the patient who was in full understanding and agreement. PROCEDURE: A 6 [place] 3.5 guiding catheter was introduced into the system. After cannulating the left main, a 0.014 balanced medium J-wire was advanced across the lesion and positioned distally in the OM1. Following that 2.5 x 12 mm Treck balloon was advanced and one inflation was done 8 gerardo. Following that a 2.5 x 12 mm Xience cornelius point stent was deployed. It was dilated at 16. Following direct of 0.014 balanced medium J-wire was advanced into the LAD and positioned distally. A 2.5 x 12 mm NC Treck balloon was advanced to the mid segment and one inflation at 10 gerardo was done. Following that attempt to advance a 2.5 x 15 mm Xience cornelius point were unsuccessful, the wire left circumflex was removed and because of her poor backup the guiding catheter was exchanged to a 6-Occitan 3.75 EBU guiding catheter, after cannulating the left main the wire was readvanced and the distal LAD and a Guidzella catheter was advanced and a 2.5 x 15 mm Xience cornelius point was advanced, there was inability to advance the stent into the mid lesion, it was deployed proximally at 16 gerardo following that a 2.5 x 8 mm Xience cornelius point was deployed distal to the first one and post dilated at 16 gerardo. Following that two 2.5 x 15 mm Xience cornelius point were deployed in the mid LAD and overlappings pattern and post dilated to 16 gerardo. After that a 3.0 x 15 mm NC Treck balloon was advanced and inflation in the proximal stent done at 12 gerardo. After the last inflation, after appropriate wait, the balloon and the guidewire were withdrawn back into the guiding catheter. Images were obtained and repeated. Those images reveal stable successful stenting. At that point, the guiding catheter, the balloon, and guidewire were removed. The sheath was removed. Hemostasis was obtained with deployment for TR band. There were no immediate complications. The patient was returned to the room in stable condition. Of note, the patient received 11,000 units of heparin as well as Plavix. Her ACT was monitored, she had chest discomfort and EKG changes that resolved at the end of the procedure RESULTS: Successful stenting of the obtuse marginal branch 1 with reduction of stenosis from 99 % to 0% Successful stenting of the proximal and mid heavily calcified LAD with reduction of stenosis from 80% to 0 %. RECOMMENDATIONS: The patient will be continued on aspirin and Plavix for 1 year without interruption. Aggressive coronary risk modification will be continued. She'll be evaluated don't want to see if revascularization of the RCA is indicated. Those findings and recommendations were discussed with the patient and her family and they are in full understanding and agreement. The patient's sedation duration 100 minutes
[2021-10-20] MEDS: DOCUSATE 100 MG CAP PO SCH ×2 (10:03→10:04)
[2021-10-20] MEDS: PIOGLITAZONE 30 MG TAB PO SCH (10:04)
[2021-10-20] MEDS: PSYLLIUM HUSK 100% 6 GM PACKET PO SCH (10:04)
[2021-10-20] MEDS: SENNOSIDES-DOCUSATE SODIUM 1 EACH TAB PO SCH ×2 (10:04→20:55)
[2021-10-20 11:46] LABS: Glucose,Whole Blood 185 mg/dL (75-99)
[2021-10-20 13:20] VITALS: BMI 45.8
--- NOTE | 2021-10-20 15:34 | P.PN ---
Subjective Progress Note Date: 10/20/21 Developed chest pain during the night, troponins increased to 0.129, 0.130. Heparin drip initiated . Scheduled for cardiac cath tomorrow. Telemetry sinus rhythm. This morning denies chest pain, palpitations or shortness of breath. Complains of nausea. Urine culture reporting E. coli, resistant to quinolones, antibiotics adjusted. Creatinine worsening, 1.20. Sodium 131. 10/19/2021 creatinine decreased to 1.07. Maintained on heparin drip. Scheduled for cardiac catheterization today. Telemetry sinus rhythm. Denies chest pain, palpitations or shortness of breath. Maintaining O2 sats in the mid 90s on room air. Continues on ceftriaxone for E. coli UTI. Afebrile. 10/20/2009 underwent cardiac catheterization this morning reporting calcified coronary arteries, critical stenosis in OM1, severe stenosis in the proximal and mid LAD, moderate severe stenosis in the mid RCA with successful stenting of the obtuse marginal branch 1 with reduction of stenosis from 99% to 0, successful stenting of the proximal and mid heavily calcified LAD with reduction of stenosis from 80% to 0%. RCA to be reevaluated. Tolerated procedure well. Objective - Vital Signs Vital signs: Vital Signs Temp 98 F 10/20/21 10:12 Pulse 75 10/20/21 11:19 Resp 16 10/20/21 11:12 BP 149/68 10/20/21 11:12 Pulse Ox 98 10/20/21 11:12 Intake & Output 10/19/21 10/20/21 10/20/21 18:59 06:59 18:59 Intake Total 719.46 250 Output Total 1800 1525 900 Balance -1080.54 -1525 -650 Weight 117.5 kg 117.5 kg Intake: IV 250 Intake, IV Titration 239.46 Amount Heparin Sod,Pork in 0.45% 239.46 NaCl 25,000 unit In 0.45 % NaCl 1 250ml.bag @ 8. 8184 UNITS/KG/HR 10 mls/ hr IV .Q24H [facility] Rx#: [id number] Oral 480 Output: Urine 1800 1525 900 Other: Voiding Method External Catheter External Catheter - Exam - Exam General: lying in bed, alert and oriented 3, NAD Neck: supple, no JVD. Cardiovascular: S1S2 is normal, regular rate and rhythm. Systolic murmur. Respiratory: Lungs are coarse with the inspiratory wheezes and fine left basilar crackles Gastrointestinal: Soft, non-distended, non-tender without organomegaly noted.no rebound or guarding present. Positive Bowel sounds. Musculoskeletal: Normal ROM, no tenderness, +1 pedal edema- baseline,no calf tenderness. Neurological: CN II-XII intact, no focal deficits. Strength and sensation grossly intact Skin: Skin is warm and dry,no rashes noted. - Labs CBC & Chem 7: 10/19/21 06:29 10/19/21 06:29 Labs: Abnormal Lab Results - Last 24 Hours (Table) 10/19/21 10/19/21 10/19/21 Range/Units 15:43 16:17 19:32 APTT 48.6 H (22.0-30.0) sec POC Glucose (mg/dL) 184 H 181 H (75-99) mg/dL 10/20/21 10/20/21 Range/Units 05:33 11:45 APTT (22.0-30.0) sec POC Glucose (mg/dL) 129 H 185 H (75-99) mg/dL Assessment and Plan Assessment: Chest pain, elevated troponins. Cardiac catheterization report calcified coronary arteries, critical stenosis in OM1, severe stenosis in the proximal and mid LAD, moderate severe stenosis in the mid RCA with successful stenting of the obtuse marginal branch 1 with reduction of stenosis from 99% to 0, successful stenting of the proximal and mid heavily calcified LAD with reduction of stenosis from 80% to 0%. (1) Acute on chronic diastolic (congestive) heart failure Current Visit: Yes Status: Acute Code(s): I50.33 - ACUTE ON CHRONIC DIASTOLIC (CONGESTIVE) HEART FAILURE SNOMED Code(s): 492405882 (2) Acute exacerbation of chronic obstructive pulmonary disease Current Visit: No Status: Acute Code(s): J44.1 - CHRONIC OBSTRUCTIVE PULMONARY DISEASE W (ACUTE) EXACERBATION SNOMED Code(s): 750231170 (3) Dyspnea Current Visit: No Status: Acute Code(s): R06.00 - DYSPNEA, UNSPECIFIED SNOMED Code(s): 920376206 (4) Hyperkalemia Current Visit: No Status: Acute Code(s): E87.5 - HYPERKALEMIA SNOMED Code(s): 02538285 (5) Hypertension Current Visit: No Status: Acute Code(s): I10 - ESSENTIAL (PRIMARY) HYPERTENSION SNOMED Code(s): 80781552 (6) Urinary tract infection, E. coli resistant to quinolones Current Visit: No Status: Acute Code(s): N39.0 - URINARY TRACT INFECTION, SITE NOT SPECIFIED SNOMED Code(s): 76844953 (7) Type 2 diabetes mellitus without complications Current Visit: Yes Status: Acute Code(s): E11.9 - TYPE 2 DIABETES MELLITUS WITHOUT COMPLICATIONS SNOMED Code(s): 398935249 (8) Chronic bilateral low back pain with bilateral sciatica Current Visit: Yes Status: Acute Code(s): M54.42 - LUMBAGO WITH SCIATICA, LEFT SIDE; M54.41 - LUMBAGO WITH SCIATICA, RIGHT SIDE; G89.29 - OTHER CHRONIC PAIN SNOMED Code(s): 420929923 (9) [facility] prescription opiate use Current Visit: Yes Status: Acute Code(s): 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 Gentle IV fluid hydration as per cardiology. Close monitoring of renal function, with repeat labs ordered for a.m. The impression and plan of care has been dictated as directed. : I performed a history and examination of this patient, discussed the same with the dictator. I agree with the dictator's note ,documented as a scribe. Any additional findings or plans will be noted.
[2021-10-20 16:21] LABS: Glucose,Whole Blood 228 mg/dL (75-99)
[2021-10-20] MEDS: METOPROLOL TARTRATE 50 MG TAB PO SCH ×2 (16:36→20:54)
[2021-10-20 20:23] LABS: Glucose,Whole Blood 173 mg/dL (75-99)
[2021-10-20] MEDS: ATORVASTATIN 40 MG TAB PO SCH (20:54)
[2021-10-20] MEDS: ACETAMINOPHEN TAB 325 MG TAB PO PRN (20:56)
[2021-10-20] MEDS: ALPRAZolam 0.25 MG TAB PO PRN (20:56)
[2021-10-21] MEDS: SODIUM CHLORIDE 0.9% 1,000 ML in EMPTY BAG 1 BAG IV SCH ×2 (03:32→08:53)
[2021-10-21 05:48] LABS: Glucose,Whole Blood 115 mg/dL (75-99)
[2021-10-21] MEDS: LEVOTHYROXINE 50 MCG TAB PO SCH (05:48)
[2021-10-21] MEDS: INSULIN ASPART (NovoLOG) 100 UNIT/ML VIAL SQ SCH ×2 (07:17→12:35)
[2021-10-21] MEDS: SYMBICORT 80-4.5 MCG INHALER INHALATION SCH (08:44)
[2021-10-21] MEDS: IPRATROPIUM 0.5 MG/2.5 ML NEBU INHALATION SCH ×2 (08:44→11:49)
[2021-10-21 08:48] VITALS: RESP 18
[2021-10-21 08:52] LABS: Basophils % (A) 0 %; Eosinophils # (A) 0.3 k/uL (0-0.7); Eosinophils % (A) 2 %; Hypochromasia Moderate; Lymphocytes # (A) 3.4 k/uL (1.0-4.8); Lymphocytes % (A) 25 %; MCHC 30.4 g/dL (31.0-37.0); Mean Platelet Volume 7.5; Monocytes # (A) 1.2 k/uL (0-1.0); Monocytes % (A) 9 %; Neutrophils # (A) 8.6 k/uL (1.3-7.7); Neutrophils % (A) 63 %; Platelet Count 351 k/uL (150-450); RBC 3.92 m/uL (3.80-5.40); RDW 13.8 % (11.5-15.5); WBC 13.7 k/uL (3.8-10.6)
[2021-10-21] MEDS: predniSONE 10 MG TAB PO SCH (08:52)
[2021-10-21] MEDS: PSYLLIUM HUSK 100% 6 GM PACKET PO SCH (08:52)
[2021-10-21] MEDS: lisinopriL 10 MG TAB PO SCH (08:53)
[2021-10-21] MEDS: GABAPENTIN 400 MG CAP PO SCH (08:53)
[2021-10-21] MEDS: SENNOSIDES-DOCUSATE SODIUM 1 EACH TAB PO SCH (08:53)
[2021-10-21] MEDS: DOCUSATE 100 MG CAP PO SCH (08:53)
[2021-10-21] MEDS: FUROSEMIDE 40 MG TAB PO SCH (08:53)
[2021-10-21] MEDS ORDERED: CLOPIDOGREL 75 MG TAB PO SCH (09:00)
[2021-10-21] MEDS ORDERED: PIOGLITAZONE 15 MG TAB PO SCH (09:00)
[2021-10-21] MEDS ORDERED: ASPIRIN 81 MG PO SCH (09:00)
[2021-10-21 09:12] LABS: Calcium 8.2 mg/dL (8.4-10.2); Potassium 4.1 mmol/L (3.5-5.1)
[2021-10-21 11:21] VITALS: BP 147/68; TEMP 98
[2021-10-21 12:02] LABS: Glucose,Whole Blood 176 mg/dL (75-99)
[2021-10-21 12:04] VITALS: PULSE 74
--- NOTE | 2021-10-21 13:36 | P.PN ---
Subjective Progress Note Date: 10/21/21 HISTORY OF PRESENT ILLNESS: This is a 86 year old female with a past medical history significant for hypertension, hyperlipidemia, diabetes, CKD, and congestive heart failure. Patient follows in the office with Dr. Case. We have been asked to see the patient in consultation for CHF. Patient examined at the bedside. Patient presented to the hospital with a chief complaint of SOB. She denies any chest pain or pressure. The patient was started on IV lasix. She reports improvement in her breathing at the time of examination. Vital signs are stable. * EKG reveals sinus mechanism with no signs of acute ischemia * Chest xray there is clearing of pulmonary congestion compared to yesterday. Mild pleural effusions without change compared to yesterday. No heart failure. * Laboratory data: WBC 7.8. Hemoglobin 11.2. Platelet count 331. Sodium 131. Potassium 5.2. BUN 34. Creatinine 1.11. Magnesium 2.0. Troponin negative 1. ProBNP 4300. * Current home cardiac medications include lisinopril 10 mg twice a day, metoprolol tartrate 50 mg twice a day, Lasix 40 mg daily, aspirin 81 mg daily, and Lipitor 40 mg daily. * Echocardiogram completed revealing ejection fraction 55-60%, moderate aortic stenosis, mild MR, mild TR, moderate pulmonary hypertension 10/18/2021 Patient examined this morning at the bedside. Patient had an episode of chest discomfort overnight. She reports having left-sided chest pain that radiated into her left arm and associated nausea. An EKG was completed which did not reveal any ischemic changes. Troponins were completed which came back elevated at 0.129 and 0.130. The patient has been started on IV heparin. At the time of examination, she denies any chest pain or pressure. Vital signs stable. 10/21/2021 Patient is s/p cardiac cath with PCI of the LAD and OM1. She denies chest pain or pressure. Denies SOB. Vital signs stable. PHYSICAL EXAM: VITAL SIGNS: Reviewed. GENERAL: Well-developed in no acute distress. HEENT: Head is normocephalic. Pupils are equal, round. Sclerae anicteric. Mucous membranes of the mouth are moist. Neck supple. No JVD or thyromegaly LUNGS: Respirations even and unlabored. Lungs diminished to auscultation bilaterally. HEART: Regular rate and rhythm. S1 and S2 heard. Systolic murmur noted ABDOMEN: Soft. Nondistended. Nontender. EXTREMITIES: Normal range of motion. No clubbing or cyanosis. Peripheral pulses intact. No lower extremity edema NEUROLOGIC: Awake and alert. Oriented x 3. ASSESSMENT: Shortness of breath Acute on chronic congestive heart failure with preserved ejection fraction Moderate aortic stenosis Hypertension Hyperlipidemia Diabetes Chronic kidney disease PLAN: Continue current cardiac medications Stable for discharge home today Further recommendations pending patient course Nurse practitioner note has been reviewed by physician. Signing provider agrees with the documented findings, assessment, and plan of care. Objective - Vital Signs Vital signs: Vital Signs Temp 98 F 10/21/21 11:20 Pulse 74 10/21/21 12:03 Resp 18 10/21/21 12:03 BP 147/68 10/21/21 11:20 Pulse Ox 98 10/21/21 11:20 Intake & Output 10/20/21 10/21/21 10/21/21 18:59 06:59 18:59 Intake Total 610 420 Output Total 900 700 Balance -290 -700 420 Weight 117.5 kg 120 kg Intake: IV 250 Oral 360 420 Output: Urine 900 700 Other: Voiding Method External Catheter External Catheter External Catheter # Voids 2 - Labs CBC & Chem 7: 10/21/21 08:10 10/21/21 08:10 Labs: Abnormal Lab Results - Last 24 Hours (Table) 10/20/21 10/20/21 10/21/21 Range/Units 16:20 20:20 05:41 WBC (3.8-10.6) k/uL Hgb (11.4-16.0) gm/dL MCHC (31.0-37.0) g/dL Neutrophils # (1.3-7.7) k/uL Monocytes # (0-1.0) k/uL Sodium (137-145) mmol/L Chloride (98-107) mmol/L BUN (7-17) mg/dL Creatinine (0.52-1.04) mg/dL Glucose (74-99) mg/dL POC Glucose (mg/dL) 228 H 173 H 115 H (75-99) mg/dL Calcium (8.4-10.2) mg/dL 10/21/21 10/21/21 10/21/21 Range/Units 08:10 08:10 12:00 WBC 13.7 H (3.8-10.6) k/uL Hgb 11.0 L (11.4-16.0) gm/dL MCHC 30.4 L (31.0-37.0) g/dL Neutrophils # 8.6 H (1.3-7.7) k/uL Monocytes # 1.2 H (0-1.0) k/uL Sodium 134 L (137-145) mmol/L Chloride 97 L (98-107) mmol/L BUN 36 H (7-17) mg/dL Creatinine 1.44 H (0.52-1.04) mg/dL Glucose 134 H (74-99) mg/dL POC Glucose (mg/dL) 176 H (75-99) mg/dL Calcium 8.2 L (8.4-10.2) mg/dL
--- NOTE | 2021-10-21 13:51 | P.DS ---
Providers Date of admission: 10/16/21 10:00 Expected date of discharge: 10/21/21 Attending physician: Phan Hartman Consults: 10/16/21 11:14 Consult Physician Routine Consulting Provider: [facility] Consult Reason/Comments: CHF Do you want consulting provider notified?: Yes 10/20/21 09:27 Consult Physician Routine Consulting Provider: [facility] Consult Reason/Comments: Post Interventional patient Do you want consulting provider notified?: Already Contacted Primary care physician: [facility] Course: Final Diagnoses: Chest pain, elevated troponins. Cardiac catheterization report calcified coronary arteries, critical stenosis in OM1, severe stenosis in the proximal and mid LAD, moderate severe stenosis in the mid RCA with successful stenting of the obtuse marginal branch 1 with reduction of stenosis from 99% to 0, successful stenting of the proximal and mid heavily calcified LAD with reduction of stenosis from 80% to 0%. (1) Acute on chronic diastolic (congestive) heart failure Current Visit: Yes Status: Acute Code(s): I50.33 - ACUTE ON CHRONIC DIASTOLIC (CONGESTIVE) HEART FAILURE SNOMED Code(s): 702195270 (2) Acute exacerbation of chronic obstructive pulmonary disease Current Visit: No Status: Acute Code(s): J44.1 - CHRONIC OBSTRUCTIVE PULMONARY DISEASE W (ACUTE) EXACERBATION SNOMED Code(s): 292582185 (3) Dyspnea Current Visit: No Status: Acute Code(s): R06.00 - DYSPNEA, UNSPECIFIED SNOMED Code(s): 036542814 (4) Hyperkalemia Current Visit: No Status: Acute Code(s): E87.5 - HYPERKALEMIA SNOMED Code(s): 22287316 (5) Hypertension Current Visit: No Status: Acute Code(s): I10 - ESSENTIAL (PRIMARY) HYPERTENSION SNOMED Code(s): 67659399 (6) Urinary tract infection, E. coli resistant to quinolones Current Visit: No Status: Acute Code(s): N39.0 - URINARY TRACT INFECTION, SITE NOT SPECIFIED SNOMED Code(s): 15562975 (7) Type 2 diabetes mellitus without complications Current Visit: Yes Status: Acute Code(s): E11.9 - TYPE 2 DIABETES MELLITUS WITHOUT COMPLICATIONS SNOMED Code(s): 691126373 (8) Chronic bilateral low back pain with bilateral sciatica Current Visit: Yes Status: Acute Code(s): M54.42 - LUMBAGO WITH SCIATICA, LEFT SIDE; M54.41 - LUMBAGO WITH SCIATICA, RIGHT SIDE; G89.29 - OTHER CHRONIC PAIN SNOMED Code(s): 797918808 (9) skilled nursing prescription opiate use Current Visit: Yes Status: Acute Code(s): Z79.891 - CASE PACKER (CURRENT) USE OF OPIATE ANALGESIC SNOMED Code(s): 042510181 (10) Acquired hypothyroidism Current Visit: Yes Status: Acute Code(s): E03.9 - HYPOTHYROIDISM, UNSPECIFIED SNOMED Code(s): 694506825 (11) Debility Current Visit: Yes Status: Acute Code(s): R53.81 - OTHER MALAISE SNOMED Code(s): 94471689 Hospital course:Pleasant 86-year-old female well-known to the practice who states she has had increasing shortness of breath for the past 3 days with bipedal edema known chronic back pain, patient denies chest pain, recently seen at our office, meds changed for better glucose control BP meds stay the same States she used rescue inhaler several times with no improvement in symptoms 10/16/2021: This 86-year-old white female is well-known to me. She is a history of diastolic congestive heart failure follows with cardiology, type 2 diabetes, hypertension and hyperlipidemia, COPD and is debilitated primarily using a wheelchair due to her morbid obesity. She has been complaining increasing shortness breath for the past week. She denies any chest pains or pressures, nausea or vomiting. She's been using Trilogy daily and albuterol inhaler when necessary for this but it has not helped. She did not feel her symptoms were significant enough to come in the office. She was found to have some hyperkalemia and received Lasix, CHF per x-ray, abnormal urine consistent with UTI which she is now on oral Cipro for, and debility. Her shortness of breath is better this morning. Her oxygen is 90% on 2 L O2 via nasal cannula. Glucose is been controlled. Urine cultures pending. Continues on her other home meds. 10/17/21: patient is improved today. Less shortness of breath. Oxygen saturation on 2 L of O2 is 99%.NetThat urine output is 900 ML's past shift. She has an external catheter in place.Labs today shows a slight hype on a tremia at 1:31 and I slightly elevated potassium at 5.2 Cr 1.1 with a GFR now 46.Preliminary analysis shows Griesenauer thousand E. coli. Chest x-ray shows clearing pulmonary congestion compared yesterday mild pleural effusion's without change compared to yesterday. 10/18/21 Developed chest pain during the night, troponins increased to 0.129, 0.130. Heparin drip initiated . Scheduled for cardiac cath tomorrow. Telemetry sinus rhythm. This morning denies chest pain, palpitations or shortness of breath. Complains of nausea. Urine culture reporting E. coli, resistant to quinolones, antibiotics adjusted. Creatinine worsening, 1.20. Sodium 131. 10/19/2021 creatinine decreased to 1.07. Maintained on heparin drip. Scheduled for cardiac catheterization today. Telemetry sinus rhythm. Denies chest pain, palpitations or shortness of breath. Maintaining O2 sats in the mid 90s on room air. Continues on ceftriaxone for E. coli UTI. Afebrile. 10/20/2009 underwent cardiac catheterization this morning reporting calcified coronary arteries, critical stenosis in OM1, severe stenosis in the proximal and mid LAD, moderate severe stenosis in the mid RCA with successful stenting of the obtuse marginal branch 1 with reduction of stenosis from 99% to 0, successful stenting of the proximal and mid heavily calcified LAD with reduction of stenosis from 80% to 0%. RCA to be reevaluated. Tolerated procedure well. Significant clinical improvement. Denies chest pain, palpitations or shortness of breath. Denies lightheadedness, dizziness or focal deficits. Patient will be discharged home today in a stable condition with guarded prognosis pending final DC recommendations/anticoagulation,clearance and follow up apt. per cardiology. The impression and plan of care has been dictated as directed. : I performed a history and examination of this patient, discussed the same with the dictator. I agree with the dictator's note ,documented as a scribe. Any additional findings or plans will be noted. Patient Condition at Discharge: Stable Plan - Discharge Summary Discharge Rx Participant: Yes New Discharge Prescriptions: New Furosemide [Lasix] 80 mg PO DAILY #30 tab Cefuroxime Axetil [Ceftin] 500 mg PO BID 5 Days #10 tab Pioglitazone [Actos] 15 mg PO DAILY #30 tab predniSONE 10 mg PO DIRECTED #30 tab Psyllium Husk 100% [Metamucil Packet] 6 gm PO DAILY packet Sennosides-Docusate Sodium [Senokot-S] 2 each PO BID tab Clopidogrel [Plavix] 75 mg PO DAILY #90 tablet Continue Nitroglycerin Sl Tabs [Nitrostat] 0.4 mg SUBLINGUAL Q5M PRN PRN Reason: Chest Pain Atorvastatin Calcium [Lipitor] 40 mg PO HS #1 tab metFORMIN HCL [Glucophage] 1,000 mg PO BID Gabapentin [Neurontin] 800 mg PO HS Gabapentin [Neurontin] 400 mg PO BID@0800,1600 Levothyroxine Sodium [Synthroid] 50 mcg PO DAILY Cyanocobalamin [Vitamin B-12 Injection] 1,000 mcg SQ Q30D lisinopriL [Zestril] 10 mg PO BID Albuterol Nebulized [Ventolin Nebulized] 2.5 mg INHALATION RT-QID PRN PRN Reason: Shortness Of Breath Fluticasone/Umeclidin/Vilanter [Trelegy Ellipta 100-62.5-25] 1 puff INHALATION RT-HS HYDROcodone/APAP 5-325MG [[place] 5-325] 1 tab PO Q6HR PRN PRN Reason: Pain Aspirin [Adult Low Dose Aspirin EC] 81 mg PO HS Metoprolol Tartrate [Lopressor] 50 mg PO BID@1600,2100 Changed Metoprolol Tartrate [Lopressor] 50 mg PO BID #0 Discontinued Furosemide [Lasix] 40 mg PO DAILY Pioglitazone [Actos] 30 mg PO DAILY Discharge Medication List Nitroglycerin Sl Tabs [Nitrostat] 0.4 mg SUBLINGUAL Q5M PRN 07/20/15 [History] Atorvastatin Calcium [Lipitor] 40 mg PO HS #1 tab 08/04/15 [Rx] metFORMIN HCL [Glucophage] 1,000 mg PO BID 02/20/18 [History] Cyanocobalamin [Vitamin B-12 Injection] 1,000 mcg SQ Q30D 07/06/19 [History] Gabapentin [Neurontin] 400 mg PO BID@0800,1600 07/06/19 [History] Gabapentin [Neurontin] 800 mg PO HS 07/06/19 [History] Levothyroxine Sodium [Synthroid] 50 mcg PO DAILY 07/06/19 [History] lisinopriL [Zestril] 10 mg PO BID 02/18/20 [History] Albuterol Nebulized [Ventolin Nebulized] 2.5 mg INHALATION RT-QID PRN 02/19/20 [History] HYDROcodone/APAP 5-325MG [[place] 5-325] 1 tab PO Q6HR PRN 12/23/20 [History] Aspirin [Adult Low Dose Aspirin EC] 81 mg PO HS 10/06/21 [History] Fluticasone/Umeclidin/Vilanter [Trelegy Ellipta 100-62.5-25] 1 puff INHALATION RT-HS 10/15/21 [History] Metoprolol Tartrate [Lopressor] 50 mg PO BID@1600,2100 10/15/21 [History] Cefuroxime Axetil [Ceftin] 500 mg PO BID 5 Days #10 tab 10/18/21 [Rx] Furosemide [Lasix] 80 mg PO DAILY #30 tab 10/18/21 [Rx] Metoprolol Tartrate [Lopressor] 50 mg PO BID #0 10/18/21 [Rx] predniSONE 10 mg PO DIRECTED #30 tab 10/18/21 [Rx] Clopidogrel [Plavix] 75 mg PO DAILY #90 tablet 10/21/21 [Rx] Pioglitazone [Actos] 15 mg PO DAILY #30 tab 10/21/21 [Rx] Psyllium Husk 100% [Metamucil Packet] 6 gm PO DAILY packet 10/21/21 [Rx] Sennosides-Docusate Sodium [Senokot-S] 2 each PO BID tab 10/21/21 [Rx] Follow up Appointment(s)/Referral(s): [facility], [NON-STAFF] - ([facility] will contact you to schedule a visit) Дмитрий Montoya MD [Primary Care Provider] - 10/27/21 3:30 pm Ambulatory/Diagnostic Orders: Complete Blood Count w/diff [LAB.AMB] Time Frame: 3 Days, Location: None Selected Patient Instructions/Handouts: Heart Failure (DC)
[2021-10-21] MEDS ORDERED: metFORMIN 500 MG TAB PO SCH (17:30)
== END 2021-10-21 14:02 | disposition home or self-care (01) | DRG 246 ==
LOC: EC 23:40 → 3SCARD 10-15 02:08 → OBSVTOIN 10-16 10:00
PROVIDERS: ADMIT Family Medicine; ATTEND Family Medicine
PROC: 027137Z Dilation of Coronary Artery, Two Arteries with Four or More Drug-eluting Intraluminal Devices, Percutaneous Approach (ICD-10-PCS; principal; 2021-10-20 07:30)
PROC: 4A023N7 Measurement of Cardiac Sampling and Pressure, Left Heart, Percutaneous Approach (ICD-10-PCS; 2021-10-20 07:30)
PROC: B2111ZZ Fluoroscopy of Multiple Coronary Arteries using Low Osmolar Contrast (ICD-10-PCS; 2021-10-20 07:30)
DX: I13.0 Hypertensive heart and chronic kidney disease with heart failure and stage 1 through stage 4 chronic kidney disease, or unspecified chronic kidney disease (principal); I50.33 Acute on chronic diastolic (congestive) heart failure; J44.1 Chronic obstructive pulmonary disease with (acute) exacerbation; N39.0 Urinary tract infection, site not specified; Z16.23 Resistance to quinolones and fluoroquinolones; Z68.42 Body mass index [BMI] 45.0-49.9, adult; B96.20 Unspecified Escherichia coli [E. coli] as the cause of diseases classified elsewhere; E03.9 Hypothyroidism, unspecified; N18.9 Chronic kidney disease, unspecified; E11.22 Type 2 diabetes mellitus with diabetic chronic kidney disease; E78.5 Hyperlipidemia, unspecified; E87.5 Hyperkalemia; F17.210 Nicotine dependence, cigarettes, uncomplicated; G89.29 Other chronic pain; I25.10 Atherosclerotic heart disease of native coronary artery without angina pectoris; I25.2 Old myocardial infarction; R07.9 Chest pain, unspecified; R77.8 Other specified abnormalities of plasma proteins; I35.0 Nonrheumatic aortic (valve) stenosis; M54.41 Lumbago with sciatica, right side; M54.42 Lumbago with sciatica, left side; Z79.82 Long term (current) use of aspirin; Z79.84 Long term (current) use of oral hypoglycemic drugs; Z79.890 Hormone replacement therapy; Z79.899 Other long term (current) drug therapy; Z82.3 Family history of stroke; Z82.49 Family history of ischemic heart disease and other diseases of the circulatory system; Z86.73 Personal history of transient ischemic attack (TIA), and cerebral infarction without residual deficits; Z96.653 Presence of artificial knee joint, bilateral; E66.01 Morbid (severe) obesity due to excess calories
CPT/HCPCS: 36415; 71046; 80048; 80053; 81001; 83735; 83880; 84484; 85025; 85027; 85610; 85730; 87077; 87086; 87186; 93005; 93306; 93458; 94640; 94760; 96374; 99285

== ENCOUNTER → 2021-10-28 | Outpatient (CLI) | payer MEDICARE ==
--- NOTE | 2021-10-28 12:02 | XR ---
EXAMINATION TYPE: XR chest 2V DATE OF EXAM: 10/28/2021 COMPARISON: Chest x-ray 10/16/2021 HISTORY: R06.02 TECHNIQUE: Frontal and lateral views of the chest are obtained. FINDINGS: The patient is rotated. There is minimal patchy posterior basilar density, no pleural effu terell, or pneumothorax seen. The cardiac silhouette size is stable, possibly enlarged. The aorta is dense. Prominent lung volumes with flattening hemidiaphragms noted. The osseous structures are intac t, postop change noted to the left shoulder. IMPRESSION: Cardiomegaly. There may be some basilar atelectasis, underlying COPD, difficult to exclu de airspace disease
== END | disposition home or self-care (01) ==
LOC: RADXRMAIN 09:32
PROVIDERS: ATTEND Family Medicine
DX: I51.7 Cardiomegaly (principal)
CPT/HCPCS: 71046

== ENCOUNTER 2021-12-09 20:59 | Inpatient (IN) | payer MEDICARE ==
[2021-12-09] MEDS ORDERED: IPRATROPIUM-ALBUTEROL 3 ML NEB INHALATION STA ×2 (21:50→23:33)
--- NOTE | 2021-12-09 21:53 | XR ---
EXAMINATION TYPE: XR chest 2V DATE OF EXAM: 12/09/2021 COMPARISON: 10/16/2021 HISTORY: Short of breath TECHNIQUE: 2 views FINDINGS: There is no heart failure nor confluent pneumonic infiltrate. Costophrenic angles are clear . Bony thorax is intact. IMPRESSION: No active cardiopulmonary disease. There is clearing of the small pleural effusions cecy red to old exam.
--- NOTE | 2021-12-09 21:55 | ED ---
SOB HPI - General Chief Complaint: Shortness of Breath Stated Complaint: VAUGHN,High BP Time Seen by Provider: 12/09/21 21:47 Source: patient, family, RN notes reviewed, old records reviewed Mode of arrival: wheelchair Limitations: no limitations - History of Present Illness Initial Comments: This is an 86 year old female to the ED with severe sob and CHF, patient has COPD without fever. Patient presents with severe shortness of breath started last night she was unremarkable sleeping throughout the night. Patient does admit to some lower extremity edema cough congestion no current chest pain. Recent hospital admission for Cardiac disease patient heart catheterization at the time of multiple stents placed. Patient states she initially felt better after the surgery but his been going maybe a little bit worse and then stiffly worse last couple nights. Patient has not had coronavirus no sick contacts or travel history MD Complaint: shortness of breath, cough -: hour(s) Radiation: back Severity: moderate Severity scale (1-10): 4 Quality: aching Consistency: constant Improves With: nothing, oxygen Worsens With: nothing Known History Of: COPD, congestive heart failure Context: recent URI, recent illness Associated Symptoms: chest pain, cough, sputum production Treatments Prior to Arrival: none - Related Data Home Medications Medication Instructions Recorded Confirmed Nitroglycerin Sl Tabs [Nitrostat] 0.4 mg SUBLINGUAL Q5M PRN 07/20/15 12/09/21 metFORMIN HCL [Glucophage] 1,000 mg PO BID 02/20/18 12/09/21 Cyanocobalamin [Vitamin B-12 1,000 mcg SQ Q30D 07/06/19 12/09/21 Injection] Gabapentin [Neurontin] 400 mg PO BID@0800,1600 07/06/19 12/09/21 Gabapentin [Neurontin] 800 mg PO HS 07/06/19 12/09/21 Levothyroxine Sodium [Synthroid] 50 mcg PO DAILY 07/06/19 12/09/21 lisinopriL [Zestril] 10 mg PO BID 02/18/20 12/09/21 Albuterol Nebulized [Ventolin 2.5 mg INHALATION RT-QID PRN 02/19/20 12/09/21 Nebulized] HYDROcodone/APAP 5-325MG [[place] 1 tab PO TID 12/23/20 12/09/21 5-325] Fluticasone/Umeclidin/Vilanter 1 puff INHALATION RT-HS 10/15/21 12/09/21 [Trelegy Ellipta 100-62.5-25] Apixaban [Eliquis] 2.5 mg PO BID 12/09/21 12/09/21 Empagliflozin [Jardiance] 10 mg PO DAILY 12/09/21 12/09/21 Furosemide [Lasix] 80 mg PO DAILY 12/09/21 12/09/21 Metoprolol Tartrate [Lopressor] 50 mg PO QID 12/09/21 12/09/21 Previous Rx's Medication Instructions Recorded Atorvastatin Calcium [Lipitor] 40 mg PO HS #1 tab 08/04/15 Pioglitazone [Actos] 15 mg PO DAILY #30 tab 10/21/21 Allergies Allergy/AdvReac Type Severity Reaction Status Date / Time Penicillins Allergy Rash/Hives Verified 12/09/21 21:29 Review of Systems ROS Statement: Those systems with pertinent positive or pertinent negative responses have been documented in the HPI. ROS Other: All systems not noted in ROS Statement are negative. Past Medical History Past Medical History: Chest Pain / Angina, Heart Failure, COPD, CVA/TIA, Diabetes Mellitus, Hyperlipidemia, Hypertension, Osteoarthritis (OA), Thyroid Disorder Additional Past Medical History / Comment(s): Using a wheelchair or a walker, bilateral peripheral neuropathy in feet and hands, chronic low back pain, lower leg edema. Last Myocardial Infarction Date:: 06/17/18 History of Any Multi-Drug Resistant Organisms: ESBL Date of last positivie culture/infection: 09/06/17 MDRO Source:: ESBL URINE Past Surgical History: Back Surgery, Heart Catheterization, Heart Catheterization With Stent, Joint Replacement, Orthopedic Surgery Additional Past Surgical History / Comment(s): Lumbar laminectomy decompression fusion L3-4 and L5-S1 with cell saver, lumbar instrumentation removal L4-5, L4- L5 laminectomy, BILATERAL KNEE REPLACEMENTS, ORIF RIGHT ANKLE, CERVICAL FUSION, bilateral rotator cuff repair, bilateral wrist carpal tunnel releases, pain procedures, left breast lumpectomy-benign, bilateral varicose vein stripping, bilateral cataracts, heart cath with 5 stents august-2021 Past Anesthesia/Blood Transfusion Reactions: No Reported Reaction Additional Past Anesthesia/Blood Transfusion Reaction / Comment(s): Pt states she has never received blood. Past Psychological History: No Psychological Hx Reported Smoking Status: Former smoker Past Alcohol Use History: None Reported Past Drug Use History: None Reported - Past Family History Father Family Medical History: Myocardial Infarction (VT) Additional Family Medical History / Comment(s): Father at 40 of a VT. Mother Family Medical History: CVA/TIA Additional Family Medical History / Comment(s): Mother had a CVA General Exam General appearance: alert, in no apparent distress Head exam: Present: atraumatic, normocephalic, normal inspection Eye exam: Present: normal appearance, PERRL, EOMI. Absent: scleral icterus, co njunctival injection, periorbital swelling ENT exam: Present: normal exam, mucous membranes moist Neck exam: Present: normal inspection. Absent: tenderness, meningismus, lymphadenopathy Respiratory exam: Present: respiratory distress, wheezes, accessory muscle use, decreased breath sounds, prolonged expiratory. Absent: rales, rhonchi, stridor Cardiovascular Exam: Present: regular rate, normal rhythm, normal heart sounds. Absent: systolic murmur, diastolic murmur, rubs, gallop, clicks GI/Abdominal exam: Present: soft, normal bowel sounds. Absent: distended, tenderness, guarding, rebound, rigid Extremities exam: Present: normal inspection, full ROM, normal capillary refill. Absent: tenderness, pedal edema, joint swelling, calf tenderness Back exam: Present: normal inspection Neurological exam: Present: alert, oriented X3, CN II-XII intact Psychiatric exam: Present: normal affect, normal mood Skin exam: Present: warm, dry, intact, normal color. Absent: rash Course Vital Signs 12/09/21 12/09/21 12/09/21 21:22 22:12 22:17 Temperature 98.5 F Pulse Rate 85 77 78 Respiratory 19 22 22 Rate Blood Pressure 140/60 O2 Sat by Pulse 99 Oximetry - Reevaluation(s) Reevaluation #1: 12/09/21 23:38 medical record is reviewed - Consultations Consultation #1: spoke w Dr Hartman re admission he is agreeable Medical Decision Making - Lab Data Result diagrams: 12/09/21 22:46 Lab Results 12/09/21 12/09/21 12/09/21 Range/Units 22:46 22:46 22:46 WBC 10.0 (3.8-10.6) k/uL RBC 3.63 L (3.80-5.40) m/uL Hgb 9.8 L (11.4-16.0) gm/dL Hct 32.6 L (34.0-46.0) % MCV 90.0 (80.0-100.0) fL MCH 27.1 (25.0-35.0) pg MCHC 30.1 L (31.0-37.0) g/dL RDW 14.9 (11.5-15.5) % Plt Count 416 (150-450) k/uL MPV 7.6 Neutrophils % 51 % Lymphocytes % 36 % Monocytes % 8 % Eosinophils % 1 % Basophils % 1 % Neutrophils # 5.1 (1.3-7.7) k/uL Lymphocytes # 3.6 (1.0-4.8) k/uL Monocytes # 0.8 (0-1.0) k/uL Eosinophils # 0.1 (0-0.7) k/uL Basophils # 0.1 (0-0.2) k/uL Hypochromasia Moderate PT 10.6 (9.0-12.0) sec INR 1.0 (<1.2) APTT 25.8 (22.0-30.0) sec NT-Pro-B Natriuret Pep 1040 pg/mL - EKG Data -: EKG Interpreted by Me (EKG is sinus rhythm 74 WA 160 QRS 72 QTC 360) Disposition Clinical Impression: Acute exacerbation of chronic obstructive pulmonary disease, CHF (congestive heart failure), Acute renal failure, COPD exacerbation, Acute on chronic diastolic (congestive) heart failure, Generalized weakness Disposition: ADMITTED IP TO THIS HOSP Condition: Fair Is patient prescribed a controlled substance at d/c from ED?: No Referrals: Neela Montoya, RN [Primary Care Provider] - 1-2 days Time of Disposition: 23:40
[2021-12-09 23:08] LABS: Basophils # (A) 0.1 k/uL (0-0.2); Basophils % (A) 1 %; Eosinophils # (A) 0.1 k/uL (0-0.7); Eosinophils % (A) 1 %; HCT 32.6 % (34.0-46.0); HGB 9.8 gm/dL (11.4-16.0); Hypochromasia Moderate; Lymphocytes # (A) 3.6 k/uL (1.0-4.8); Lymphocytes % (A) 36 %; MCH 27.1 pg (25.0-35.0); MCHC 30.1 g/dL (31.0-37.0); Mean Platelet Volume 7.6; Monocytes # (A) 0.8 k/uL (0-1.0); Monocytes % (A) 8 %; Neutrophils # (A) 5.1 k/uL (1.3-7.7); Neutrophils % (A) 51 %; Partial Thromboplastin Time 25.8 sec (22.0-30.0); Platelet Count 416 k/uL (150-450); Prothrombin Time 10.6 sec (9.0-12.0); RBC 3.63 m/uL (3.80-5.40); RDW 14.9 % (11.5-15.5)
[2021-12-09] MEDS ORDERED: MORPHINE SULFATE 4 MG/ML SYRINGE IV PRN (23:33)
[2021-12-09] MEDS ORDERED: LORazepam 2 MG/ML INJ IV PRN (23:33)
[2021-12-09] MEDS ORDERED: ONDANSETRON 4 MG/2 ML VIAL IVP PRN (23:33)
[2021-12-09] MEDS ORDERED: NALOXONE 0.4 MG/ML 1 ML VIAL IV PRN (23:33)
[2021-12-09] MEDS: ALBUTEROL NEBULIZED 2.5 MG/3 ML INHALATION SCH (23:51)
[2021-12-10] MEDS: FUROSEMIDE 10 MG/ML 4 ML VIAL IV SCH ×2 (00:06→08:51)
[2021-12-10 01:10] LABS: Calcium 8.9 mg/dL (8.4-10.2); Magnesium 2.8 mg/dL (1.6-2.3); Phosphorus 3.1 mg/dL (2.5-4.5); Total Bilirubin 0.2 mg/dL (0.2-1.3); Total Protein 6.4 g/dL (6.3-8.2)
[2021-12-10] MEDS: ALBUTEROL NEBULIZED 2.5 MG/3 ML INHALATION SCH ×5 (02:59→19:27)
[2021-12-10 04:01] LABS: Basophils # (A) 0.1 k/uL (0-0.2); Basophils % (A) 1 %; Eosinophils # (A) 0.1 k/uL (0-0.7); Eosinophils % (A) 1 %; HGB 8.9 gm/dL (11.4-16.0); Hypochromasia Moderate; Lymphocytes # (A) 2.2 k/uL (1.0-4.8); Lymphocytes % (A) 27 %; MCHC 29.8 g/dL (31.0-37.0); MCV 90.7 fL (80.0-100.0); Mean Platelet Volume 8.3; Monocytes # (A) 0.9 k/uL (0-1.0); Monocytes % (A) 10 %; Neutrophils # (A) 4.7 k/uL (1.3-7.7); Neutrophils % (A) 57 %; Platelet Count 384 k/uL (150-450); RBC 3.31 m/uL (3.80-5.40); WBC 8.2 k/uL (3.8-10.6)
[2021-12-10 04:54] LABS: Albumin 3.8 g/dL (3.5-5.0); Calcium 8.7 mg/dL (8.4-10.2); Potassium 4.4 mmol/L (3.5-5.1); Total Bilirubin 0.1 mg/dL (0.2-1.3); Total Protein 6.2 g/dL (6.3-8.2)
[2021-12-10] MEDS: SODIUM CHLORIDE 0.9% 1,000 ML IV SCH (05:36)
[2021-12-10] MEDS ORDERED: lisinopriL 10 MG TAB PO SCH (09:30)
[2021-12-10 11:28] VITALS: BMI 44.4
--- NOTE | 2021-12-10 11:52 | P.HPIM ---
History of Present Illness H&P Date: 12/10/21 Chief Complaint: Dyspnea, hypertension, known history coronary artery disease This is an 86-year-old female well-known practice who presented to the emergency room was shortness of breath CHF patient has COPD without evidence of fever. Mild lower extremity edema recently underwent heart catheterization with multiple stent placement within the last year. No recent sick contacts no recent travel no evidence of damico virus Review of Systems Constitutional: Reports weakness Ears, nose, mouth and throat: Reports as per HPI Cardiovascular: Reports decreased exercise tolerance, Reports dyspnea on exertion, Reports edema, Reports high blood pressure, Reports shortness of breath Respiratory: Reports dyspnea Gastrointestinal: Reports as per HPI Genitourinary: Reports as per HPI Menstruation: Reports postmenopausal Musculoskeletal: Reports as per HPI Integumentary: Reports as per HPI Neurological: Reports as per HPI Psychiatric: Reports as per HPI Past Medical History Past Medical History: Chest Pain / Angina, Heart Failure, COPD, CVA/TIA, Diabetes Mellitus, Hyperlipidemia, Hypertension, Osteoarthritis (OA), Thyroid Disorder Additional Past Medical History / Comment(s): Using a wheelchair or a walker, bilateral peripheral neuropathy in feet and hands, chronic low back pain, lower leg edema. Last Myocardial Infarction Date:: 06/17/18 History of Any Multi-Drug Resistant Organisms: ESBL Date of last positivie culture/infection: 09/06/17 MDRO Source:: ESBL URINE Past Surgical History: Back Surgery, Heart Catheterization, Heart Catheterization With Stent, Joint Replacement, Orthopedic Surgery Additional Past Surgical History / Comment(s): Lumbar laminectomy decompression fusion L3-4 and L5-S1 with cell saver, lumbar instrumentation removal L4-5, L4- L5 laminectomy, BILATERAL KNEE REPLACEMENTS, ORIF RIGHT ANKLE, CERVICAL FUSION, bilateral rotator cuff repair, bilateral wrist carpal tunnel releases, pain procedures, left breast lumpectomy-benign, bilateral varicose vein stripping, bilateral cataracts, heart cath with 5 stents august-2021 Past Anesthesia/Blood Transfusion Reactions: No Reported Reaction Additional Past Anesthesia/Blood Transfusion Reaction / Comment(s): Pt states she has never received blood. Date of Last Stent Placement:: 08/30/2021 Past Psychological History: No Psychological Hx Reported Additional Psychological History / Comment(s): . Smoking Status: Former smoker Past Alcohol Use History: None Reported Additional Past Alcohol Use History / Comment(s): Pt started smoking in 7 and quit in 1974. She was a 1.5 ppd smoker. Past Drug Use History: None Reported - Past Family History Father Family Medical History: Myocardial Infarction ([place]) Additional Family Medical History / Comment(s): Father at 40 of a [place]. Mother Family Medical History: CVA/TIA Additional Family Medical History / Comment(s): Mother had a CVA Medications and Allergies Home Medications Medication Instructions Recorded Confirmed Type Nitroglycerin Sl Tabs [Nitrostat] 0.4 mg SUBLINGUAL Q5M PRN 07/20/15 12/09/21 History Atorvastatin Calcium [Lipitor] 40 mg PO HS #1 tab 08/04/15 12/09/21 Rx metFORMIN HCL [Glucophage] 1,000 mg PO BID 02/20/18 12/09/21 History Cyanocobalamin [Vitamin B-12 1,000 mcg SQ Q30D 07/06/19 12/09/21 History Injection] Gabapentin [Neurontin] 400 mg PO BID@0800,1600 07/06/19 12/09/21 History Gabapentin [Neurontin] 800 mg PO HS 07/06/19 12/09/21 History Levothyroxine Sodium [Synthroid] 50 mcg PO DAILY 07/06/19 12/09/21 History lisinopriL [Zestril] 10 mg PO BID 02/18/20 12/09/21 History Albuterol Nebulized [Ventolin 2.5 mg INHALATION RT-QID PRN 02/19/20 12/09/21 History Nebulized] HYDROcodone/APAP 5-325MG [[place]ason 1 tab PO TID 12/23/20 12/09/21 History 5-325] Fluticasone/Umeclidin/Vilanter 1 puff INHALATION RT-HS 10/15/21 12/09/21 History [Trelegy Ellipta 100-62.5-25] Pioglitazone [Actos] 15 mg PO DAILY #30 tab 10/21/21 12/09/21 Rx Apixaban [Eliquis] 2.5 mg PO BID 12/09/21 12/09/21 History Empagliflozin [Jardiance] 10 mg PO DAILY 12/09/21 12/09/21 History Furosemide [Lasix] 80 mg PO DAILY 12/09/21 12/09/21 History Metoprolol Tartrate [Lopressor] 50 mg PO QID 12/09/21 12/09/21 History Allergies Allergy/AdvReac Type Severity Reaction Status Date / Time Penicillins Allergy Rash/Hives Verified 12/09/21 21:29 Physical Exam Osteopathic Statement: *. No significant issues noted on an osteopathic structural exam other than those noted in the History and Physical/Consult. Vitals: Vital Signs Temp Pulse Pulse Resp BP BP Pulse Ox 12/10/21 09:02 84 12/10/21 08:51 92 12/10/21 08:00 98.5 F 110 H 24 97/64 99 12/10/21 02:00 98.5 F 97 19 151/69 97 12/10/21 01:25 92 16 119/52 98 12/10/21 00:15 84 12/10/21 00:06 80 12/10/21 00:05 80 12/09/21 23:56 76 12/09/21 23:28 90 16 167/64 98 12/09/21 22:17 78 22 12/09/21 22:12 77 22 12/09/21 21:22 98.5 F 85 19 140/60 99 Intake and Output 12/09/21 12/10/21 12/10/21 22:59 06:59 14:59 Output Total 600 Balance -600 Output: Urine 600 Other: Voiding Method External Catheter Weight 113.398 kg 113.398 kg 113.7 kg General: [Patient awake, alert and oriented times 3. Patient in no acute distress. Morbidly obese HEENT: [PERRL. EOMI. No pharyngeal erythema or exudate.] Neck: [No adenopathy.] Cardiac: [Heart regular in rate and rhythm. No S3. No S4. No clicks, rubs. No murmur.] Lungs: Clear but diminished bilaterally probably secondary to body habitus Abdomen: [No mass. No organomegaly. Bowel sounds presnt and normoactive in all 4 quadrants. Morbid obesity Extremes: 2+ edema bilateral lower extremes no cyanosis no claudication normal pulses] : Normal female genitalia Musculoskeletal: [No joint erythema, edema or tenderness.] Skin: [No rash.] Neurologic: [No lateralizing deficits. CN II - XII grossly intact.] Lymphatic: [No adenopathy.] Results CBC & Chem 7: 12/10/21 03:43 12/10/21 03:43 Labs: Abnormal Lab Results - Last 24 Hours (Table) 12/09/21 12/09/21 12/10/21 Range/Units 22:46 23:25 03:43 RBC 3.63 L 3.31 L (3.80-5.40) m/uL Hgb 9.8 L 8.9 L (11.4-16.0) gm/dL Hct 32.6 L 30.0 L (34.0-46.0) % MCHC 30.1 L 29.8 L (31.0-37.0) g/dL Sodium 133 L (137-145) mmol/L Carbon Dioxide 21 L (22-30) mmol/L BUN 35 H (7-17) mg/dL Creatinine 1.26 H (0.52-1.04) mg/dL Glucose 135 H (74-99) mg/dL Magnesium 2.8 H (1.6-2.3) mg/dL Total Bilirubin (0.2-1.3) mg/dL Total Protein (6.3-8.2) g/dL 12/10/21 Range/Units 03:43 RBC (3.80-5.40) m/uL Hgb (11.4-16.0) gm/dL Hct (34.0-46.0) % MCHC (31.0-37.0) g/dL Sodium 135 L (137-145) mmol/L Carbon Dioxide (22-30) mmol/L BUN 35 H (7-17) mg/dL Creatinine 1.28 H (0.52-1.04) mg/dL Glucose 147 H (74-99) mg/dL Magnesium (1.6-2.3) mg/dL Total Bilirubin 0.1 L (0.2-1.3) mg/dL Total Protein 6.2 L (6.3-8.2) g/dL Assessment and Plan (1) CAD (coronary atherosclerotic disease) Current Visit: Yes Status: Acute Code(s): I25.10 - ATHSCL HEART DISEASE OF [place] CORONARY ARTERY W/O ANG PCTRS SNOMED Code(s): 969083106 (2) Acute exacerbation of chronic obstructive pulmonary disease Current Visit: Yes Status: Acute Code(s): J44.1 - CHRONIC OBSTRUCTIVE PULMONARY DISEASE W (ACUTE) EXACERBATION SNOMED Code(s): 167380020 (3) Acute on chronic diastolic (congestive) heart failure Current Visit: Yes Status: Acute Code(s): I50.33 - ACUTE ON CHRONIC DIASTOLIC (CONGESTIVE) HEART FAILURE SNOMED Code(s): 146670793 (4) Acute renal failure Current Visit: Yes Status: Acute Code(s): N17.9 - ACUTE KIDNEY FAILURE, UNSPECIFIED SNOMED Code(s): 88971922 (5) Generalized weakness Current Visit: Yes Status: Acute Code(s): R53.1 - WEAKNESS SNOMED Code(s): 65661463 (6) Acquired hypothyroidism Current Visit: No Status: Acute Code(s): E03.9 - HYPOTHYROIDISM, UNSPECIFIED SNOMED Code(s): 063613898 (7) Chronic bilateral low back pain with bilateral sciatica Current Visit: No Status: Acute Code(s): M54.42 - LUMBAGO WITH SCIATICA, LEFT SIDE; M54.41 - LUMBAGO WITH SCIATICA, RIGHT SIDE; G89.29 - OTHER CHRONIC PAIN SNOMED Code(s): 316800824 (8) Type 2 diabetes mellitus without complications Current Visit: No Status: Acute Code(s): E11.9 - TYPE 2 DIABETES MELLITUS WITHOUT COMPLICATIONS SNOMED Code(s): 238431318 Plan: Acute exacerbation of chronic COPD Acute on chronic renal failure GFR 39 we will decrease KAE inhibitor and hydralazine would consider reducing loop diuretic if cardiology agrees Lisinopril decreased to 5 mg daily Start hydralazine 10 mg 4 times daily for high blood pressure Continue Lasix as scheduled for now Waiting on cardiology consultation Waiting on pulmonary consultation Time with Patient: Greater than 30
[2021-12-10] MEDS ORDERED: lisinopriL 5 MG TAB PO STA (12:02)
[2021-12-10] MEDS ORDERED: GABAPENTIN 400 MG CAP PO STA (12:10)
--- NOTE | 2021-12-10 12:30 | P.CNPUL ---
History of Present Illness Consult date: 12/10/21 Reason for consult: dyspnea History of present illness: 86-year-old morbidly obese female patient, quite debilitated on a wheelchair, also known to have COPD and CHF with diastolic failure, coronary artery disease with previous multi coronary artery stenting and diabetes mellitus. The patient has been fully vaccinated for COVID 19. The patient comes in to the hospital because of worsening shortness of breath. She has also some increase in lower extremity edema. She has exertional dyspnea. Minimal cough. No significant sputum production. No fever or chills. No nausea vomiting or emesis. No altered mentation. In the emergency, the patient had a chest x-ray that showed cardiomegaly with pulmonary vascular congestion. The patient also had a blood work that showed a mildly elevated proBNP level. The patient was given Lasix and the patient is diuresing well for now and the patient is already feeling well on 2 L of oxygen by nasal cannula. Previous echocardiogram that was done in September 2021 showed a preserved LV function. No significant valvular abnormalities and there was evidence of hypertensive heart disease with pruitt tolic failure. Review of Systems Constitutional: Reports chills, Reports fatigue, Reports lethargy, Reports weakness Eyes: denies blurred vision, denies bulging eye, denies decreased vision Ears: deny: decreased hearing, ear discharge, earache Ears, nose, mouth and throat: Denies headache, Denies sore throat Cardiovascular: Reports decreased exercise tolerance, Reports shortness of breath Respiratory: Reports dyspnea Musculoskeletal: Reports frequent falls, Denies myalgias Musculoskeletal: left: ankle pain, ankle swelling, absent: ankle stiffness Integumentary: Denies pruritus, Denies rash Neurological: Reports weakness, Denies numbness Psychiatric: Denies anxiety, Denies depression Past Medical History Past Medical History: Chest Pain / Angina, Heart Failure, COPD, CVA/TIA, Diabetes Mellitus, Hyperlipidemia, Hypertension, Osteoarthritis (OA), Thyroid Disorder Additional Past Medical History / Comment(s): Using a wheelchair or a walker, bilateral peripheral neuropathy in feet and hands, chronic low back pain, lower leg edema. Last Myocardial Infarction Date:: 06/17/18 History of Any Multi-Drug Resistant Organisms: ESBL Date of last positivie culture/infection: 09/06/17 MDRO Source:: ESBL URINE Past Surgical History: Back Surgery, Heart Catheterization, Heart Catheterizatio n With Stent, Joint Replacement, Orthopedic Surgery Additional Past Surgical History / Comment(s): Lumbar laminectomy decompression fusion L3-4 and L5-S1 with cell saver, lumbar instrumentation removal L4-5, L4- L5 laminectomy, BILATERAL KNEE REPLACEMENTS, ORIF RIGHT ANKLE, CERVICAL FUSION, bilateral rotator cuff repair, bilateral wrist carpal tunnel releases, pain procedures, left breast lumpectomy-benign, bilateral varicose vein stripping, bilateral cataracts, heart cath with 5 stents august-2021 Past Anesthesia/Blood Transfusion Reactions: No Reported Reaction Additional Past Anesthesia/Blood Transfusion Reaction / Comment(s): Pt states she has never received blood. Date of Last Stent Placement:: 08/30/2021 Past Psychological History: No Psychological Hx Reported Additional Psychological History / Comment(s): . Smoking Status: Former smoker Past Alcohol Use History: None Reported Additional Past Alcohol Use History / Comment(s): Pt started smoking in 1954 and quit in 1974. She was a 1.5 ppd smoker. Past Drug Use History: None Reported - Past Family History Father Family Medical History: Myocardial Infarction ([place]) Additional Family Medical History / Comment(s): Father at 40 of a [place]. Mother Family Medical History: CVA/TIA Additional Family Medical History / Comment(s): Mother had a CVA Medications and Allergies Home Medications Medication Instructions Recorded Confirmed Type Nitroglycerin Sl Tabs [Nitrostat] 0.4 mg SUBLINGUAL Q5M PRN 07/20/15 12/09/21 History Atorvastatin Calcium [Lipitor] 40 mg PO HS #1 tab 08/04/15 12/09/21 Rx metFORMIN HCL [Glucophage] 1,000 mg PO BID 02/20/18 12/09/21 History Cyanocobalamin [Vitamin B-12 1,000 mcg SQ Q30D 07/06/19 12/09/21 History Injection] Gabapentin [Neurontin] 400 mg PO BID@0800,1600 07/06/19 12/09/21 History Gabapentin [Neurontin] 800 mg PO HS 07/06/19 12/09/21 History Levothyroxine Sodium [Synthroid] 50 mcg PO DAILY 07/06/19 12/09/21 History lisinopriL [Zestril] 10 mg PO BID 02/18/20 12/09/21 History Albuterol Nebulized [Ventolin 2.5 mg INHALATION RT-QID PRN 02/19/20 12/09/21 History Nebulized] HYDROcodone/APAP 5-325MG [[place] 1 tab PO TID 12/23/20 12/09/21 History 5-325] Fluticasone/Umeclidin/Vilanter 1 puff INHALATION RT-HS 10/15/21 12/09/21 History [Trelegy Ellipta 100-62.5-25] Pioglitazone [Actos] 15 mg PO DAILY #30 tab 10/21/21 12/09/21 Rx Apixaban [Eliquis] 2.5 mg PO BID 12/09/21 12/09/21 History Empagliflozin [Jardiance] 10 mg PO DAILY 12/09/21 12/09/21 History Furosemide [Lasix] 80 mg PO DAILY 12/09/21 12/09/21 History Metoprolol Tartrate [Lopressor] 50 mg PO QID 12/09/21 12/09/21 History Allergies Allergy/AdvReac Type Severity Reaction Status Date / Time Penicillins Allergy Rash/Hives Verified 12/09/21 21:29 Physical Exam Vitals: Vital Signs Temp Pulse Pulse Resp BP BP Pulse Ox 12/10/21 09:02 84 12/10/21 08:51 92 12/10/21 08:00 98.5 F 110 H 24 97/64 99 12/10/21 02:00 98.5 F 97 19 151/69 97 12/10/21 01:25 92 16 119/52 98 12/10/21 00:15 84 12/10/21 00:06 80 12/10/21 00:05 80 12/09/21 23:56 76 12/09/21 23:28 90 16 167/64 98 12/09/21 22:17 78 22 12/09/21 22:12 77 22 12/09/21 21:22 98.5 F 85 19 140/60 99 Intake and Output 12/09/21 12/10/21 12/10/21 22:59 06:59 14:59 Output Total 600 Balance -600 Output: Urine 600 Other: Voiding Method External Catheter Weight 113.398 kg 113.398 kg The patient appeared well nourished and normally developed. The patient is stable on 2 L about 2 by nasal cannula The patient is morbidly obese and she is calm and comfortable. No signs of any respiratory distress. Vital signs as documented. Head exam is unremarkable. No scleral icterus or corneal arcus noted. Neck is without jugular venous distension, thyromegaly, or carotid bruits. Carotid upstrokes are brisk bilaterally. Lungs are clear to auscultation and percussion. Cardiac exam reveals the PMI to be normally sized and situated. Rhythm is regular. First and second heart sounds normal. There is a systolic ejection murmur grade 3/6 heard throughout the precordium mainly in the left lateral sternal border, rubs or gallops. Abdominal exam reveals normal bowel sounds, no masses, no organomegaly and no aortic enlargement. Extremities are nonedematous and both femoral and pedal pulses are normal. The patient has chronic edema lower extremities bilaterally. No open wounds or sores or cellulitis. Neurologically, the patient is moving all 4 extremities. Results - Laboratory Findings CBC and BMP: 12/10/21 03:43 12/10/21 03:43 PT/INR, D-dimer PT 10.6 sec (9.0-12.0) 12/09/21 22:46 INR 1.0 (<1.2) 12/09/21 22:46 Abnormal lab findings: Abnormal Labs 12/09/21 12/09/21 12/10/21 22:46 23:25 03:43 RBC 3.63 L 3.31 L Hgb 9.8 L 8.9 L Hct 32.6 L 30.0 L MCHC 30.1 L 29.8 L Sodium 133 L Carbon Dioxide 21 L BUN 35 H Creatinine 1.26 H Glucose 135 H Magnesium 2.8 H Total Bilirubin Total Protein 12/10/21 03:43 RBC Hgb Hct MCHC Sodium 135 L Carbon Dioxide BUN 35 H Creatinine 1.28 H Glucose 147 H Magnesium Total Bilirubin 0.1 L Total Protein 6.2 L - Diagnostic Findings Chest x-ray: image reviewed Assessment and Plan Plan: Shortness of breath, multifactorial, due to COPD/CHF component with some signs of exacerbation of CHF. Chest x-ray showing thyromegaly with mild pulmonary vascular congestion. ProBNP level is mildly elevated. The patient was given IV Lasix and the patient has diuresed almost 1 L since yesterday. She is feeling better for today. Most recent echocardiogram shows hypertensive heart disease with preserved LV function/diastolic failure. Acute hypoxic respiratory failure currently on 2 L of oxygen by nasal cannula Chronic COPD, maintained on Trelegy Ellipta on outpatient basis History of chronic obstructive pulmonary disease secondary to a remote history of chronic tobacco dependence. Currently on albuterol on a as-needed basis in the outpatient setting. Previous history of urinary tract infection secondary to Klebsiella pneumoniae and E. coli. Morbid obesity. Diabetes mellitus, type II CAD and previous stenting Hyperlipidemia. Osteoarthritis. History of hypertension. Chronic back pain with previous laminectomy and decompression involving the lumbosacral spine. Chronic neck pain. Acute on top of chronic anemia, exact etiology is not clear. We'll check occult stool and will check iron studies. No signs of any acute GI bleed and the patient's hemoglobin is at 8.9 and this probably also contributed to her shortness of breath. Plan Agree on the current treatment and the patient has been Lasix 80 mg by mouth daily Continue albuterol about treatments around the clock No need for antibiotics or any systemic steroids IV fluids KVO May use her Trelegy Ellipta from home Will follow
[2021-12-10] MEDS: METOPROLOL TARTRATE 50 MG TAB PO SCH ×3 (12:57→22:50)
[2021-12-10] MEDS: GABAPENTIN 400 MG CAP PO SCH ×2 (12:57→18:00)
[2021-12-10] MEDS ORDERED: hydrALAZINE HCL 10 MG TAB PO SCH (13:00)
--- NOTE | 2021-12-10 13:04 | P.CRDCN ---
History of Present Illness Consult date: 12/10/21 Consult reason: shortness of breath History of present illness: This is Dallas Krishnan NP, I'm dictating on behalf of Dr. Dorado's H&P and A&P The patient was interviewed and examined. HPI: Patient is a pleasant 86-year-old female who initially presented to the hospital with complaints of shortness of breath without exertion, and was admitted for COPD, CHF, and weakness. Patient reports that she's been very short of breath without any exertion at all, and states that she was having trouble catching her breath. She denied any cough, fever, or phlegm production. She does have a recent history of cardiac catheterization with multiple stent placements. Patient has a past medical history that includes congestive heart failure, COPD, CVA, diabetes, hyperlipidemia, hypertension, osteoporosis, and thyroid disorder. Today she states that she feels much better. She is not reporting any severe shortness of breath at this time. ROS: [No fever, chills, or rigors] [no cough, phlegm, or expectoration] [no nausea, vomiting, or diarrhea] [no hematuria, dysuria] [no musculoskelatal complaints] [no strokes or seizures] [no skin lesions] EXAMINATION: GENERAL: Well-appearing, well-nourished and in no acute distress. NECK: Supple without JVD or thyromegaly. LUNGS: Breath sounds clear to auscultation bilaterally. Respiration equal and unlabored. No wheezes, rales or rhonchi. HEART: Regular rate and rhythm with systolic ejection murmur, rubs or gallops. S1 and S2 heard. EXTREMITIES: Normal range of motion, mild edema bilateral lower extremities. No clubbing or cyanosis. Peripheral pulses intact and strong. REVIEW OF LABS, ECG & MEDICAL DATA: LABS: White count 8.2, hemoglobin 8.9, sodium 135, potassium 4.4, B1 35, creatin ine 1.28, troponin less than 0.012, BNP 1040 EKG: Normal sinus rhythm with occasional arrhythmia IMAGING: Chest x-ray dated 12/09/2021 demonstrates no active cardiopulmonary disease. There is clearing of the small pleural effusions compared to exam. VITALS: Temp 98.5, pulse 92, respirations 24, blood pressure 97/64, O2 saturation 99% on 2 L via nasal cannula IMPRESSION/PLAN: 1. Congestive heart failure-discontinue IV Lasix, change patient back to 80 mg by mouth daily, which is her home dose. Start metoprolol 50 mg twice a day. Start lisinopril 10 mg twice a day. 2. Shortness of breath-multiple reasons, likely combination of COPD and CHF. 3. COPD-pulmonology to manage 4. Hypertension-blood pressure slightly elevated. Start lisinopril 10 mg twice a day. Further recommendations based on the patient's clinical course. Thank you for the consult and allowing us to participate in the care of this patient. Past Medical History Past Medical History: Chest Pain / Angina, Heart Failure, COPD, CVA/TIA, Diabetes Mellitus, Hyperlipidemia, Hypertension, Osteoarthritis (OA), Thyroid Disorder Additional Past Medical History / Comment(s): Using a wheelchair or a walker, bilateral peripheral neuropathy in feet and hands, chronic low back pain, lower leg edema. Last Myocardial Infarction Date:: 06/17/18 History of Any Multi-Drug Resistant Organisms: ESBL Date of last positivie culture/infection: 09/06/17 MDRO Source:: ESBL URINE Past Surgical History: Back Surgery, Heart Catheterization, Heart Catheterization With Stent, Joint Replacement, Orthopedic Surgery Additional Past Surgical History / Comment(s): Lumbar laminectomy decompression fusion L3-4 and L5-S1 with cell saver, lumbar instrumentation removal L4-5, L4- L5 laminectomy, BILATERAL KNEE REPLACEMENTS, ORIF RIGHT ANKLE, CERVICAL FUSION, bilateral rotator cuff repair, bilateral wrist carpal tunnel releases, pain procedures, left breast lumpectomy-benign, bilateral varicose vein stripping, bilateral cataracts, heart cath with 5 stents august-2021 Past Anesthesia/Blood Transfusion Reactions: No Reported Reaction Additional Past Anesthesia/Blood Transfusion Reaction / Comment(s): Pt states she has never received blood. Date of Last Stent Placement:: 08/30/2021 Past Psychological History: No Psychological Hx Reported Additional Psychological History / Comment(s): . Smoking Status: Former smoker Past Alcohol Use History: None Reported Additional Past Alcohol Use History / Comment(s): Pt started smoking in 1955 and quit in 1974. She was a 1.5 ppd smoker. Past Drug Use History: None Reported - Past Family History Father Family Medical History: Myocardial Infarction (NC) Additional Family Medical History / Comment(s): Father at 40 of a NC. Mother Family Medical History: CVA/TIA Additional Family Medical History / Comment(s): Mother had a CVA Medications and Allergies Home Medications Medication Instructions Recorded Confirmed Type Nitroglycerin Sl Tabs [Nitrostat] 0.4 mg SUBLINGUAL Q5M PRN 07/20/15 12/09/21 History Atorvastatin Calcium [Lipitor] 40 mg PO HS #1 tab 08/04/15 12/09/21 Rx metFORMIN HCL [Glucophage] 1,000 mg PO BID 02/20/18 12/09/21 History Cyanocobalamin [Vitamin B-12 1,000 mcg SQ Q30D 07/06/19 12/09/21 History Injection] Gabapentin [Neurontin] 400 mg PO BID@0800,1600 07/06/19 12/09/21 History Gabapentin [Neurontin] 800 mg PO HS 07/06/19 12/09/21 History Levothyroxine Sodium [Synthroid] 50 mcg PO DAILY 07/06/19 12/09/21 History lisinopriL [Zestril] 10 mg PO BID 02/18/20 12/09/21 History Albuterol Nebulized [Ventolin 2.5 mg INHALATION RT-QID PRN 02/19/20 12/09/21 History Nebulized] HYDROcodone/APAP 5-325MG [[place] 1 tab PO TID 12/23/20 12/09/21 History 5-325] Fluticasone/Umeclidin/Vilanter 1 puff INHALATION RT-HS 10/15/21 12/09/21 History [Trelegy Ellipta 100-62.5-25] Pioglitazone [Actos] 15 mg PO DAILY #30 tab 10/21/21 12/09/21 Rx Apixaban [Eliquis] 2.5 mg PO BID 12/09/21 12/09/21 History Empagliflozin [Jardiance] 10 mg PO DAILY 12/09/21 12/09/21 History Furosemide [Lasix] 80 mg PO DAILY 12/09/21 12/09/21 History Metoprolol Tartrate [Lopressor] 50 mg PO QID 12/09/21 12/09/21 History Allergies Allergy/AdvReac Type Severity Reaction Status Date / Time Penicillins Allergy Rash/Hives Verified 12/09/21 21:29 Physical Exam Vitals: Vital Signs Temp Pulse Pulse Resp BP BP Pulse Ox 12/10/21 09:02 84 12/10/21 08:51 92 12/10/21 02:00 98.5 F 97 19 151/69 97 12/10/21 01:25 92 16 119/52 98 12/10/21 00:15 84 12/10/21 00:06 80 12/10/21 00:05 80 12/09/21 23:56 76 12/09/21 23:28 90 16 167/64 98 12/09/21 22:17 78 22 12/09/21 22:12 77 22 12/09/21 21:22 98.5 F 85 19 140/60 99 Intake and Output 12/09/21 12/10/21 12/10/21 22:59 06:59 14:59 Output Total 600 Balance -600 Output: Urine 600 Other: Weight 113.398 kg 113.398 kg Results 12/10/21 03:43 12/10/21 03:43 Cardiac Enzymes 12/09/21 12/09/21 12/10/21 Range/Units 23:25 23:25 03:43 AST 20 (14-36) U/L Troponin I <0.012 <0.012 (0.000-0.034) ng/mL 12/10/21 Range/Units 03:43 AST 19 (14-36) U/L Troponin I (0.000-0.034) ng/mL Coagulation 12/09/21 Range/Units 22:46 PT 10.6 (9.0-12.0) sec APTT 25.8 (22.0-30.0) sec CBC 12/09/21 12/10/21 Range/Units 22:46 03:43 WBC 10.0 8.2 (3.8-10.6) k/uL RBC 3.63 L 3.31 L (3.80-5.40) m/uL Hgb 9.8 L 8.9 L (11.4-16.0) gm/dL Hct 32.6 L 30.0 L (34.0-46.0) % Plt Count 416 384 (150-450) k/uL Comprehensive Metabolic Panel 12/09/21 12/10/21 Range/Units 23:25 03:43 Sodium 133 L 135 L (137-145) mmol/L Potassium 5.0 4.4 (3.5-5.1) mmol/L Chloride 102 103 (98-107) mmol/L Carbon Dioxide 21 L 25 (22-30) mmol/L BUN 35 H 35 H (7-17) mg/dL Creatinine 1.26 H 1.28 H (0.52-1.04) mg/dL Glucose 135 H 147 H (74-99) mg/dL Calcium 8.9 8.7 (8.4-10.2) mg/dL AST 20 19 (14-36) U/L ALT 13 13 (4-34) U/L Alkaline Phosphatase 74 66 (38-126) U/L Total Protein 6.4 6.2 L (6.3-8.2) g/dL Albumin 4.0 3.8 (3.5-5.0) g/dL Current Medications Generic Name Dose Route Start Last Admin Trade Name Freq PRN Reason Stop Dose Admin Albuterol Sulfate 2.5 mg 12/10/21 00:00 12/10/21 08:51 Albuterol Nebulized 2.5 Mg/3 Ml INHALATION 2.5 mg RT-Q4H [facility] Administration Furosemide 80 mg 12/11/21 09:00 Furosemide 80 Mg Tab PO DAILY [facility] Sodium Chloride 1,000 mls @ 20 mls/hr 12/09/21 23:45 12/10/21 05:36 Saline 0.9% IV Not Given .Q24H [facility] Lisinopril 10 mg 12/10/21 09:30 Lisinopril 10 Mg Tab PO BID [facility] Lorazepam 0.5 mg 12/09/21 23:33 Lorazepam 2 Mg/Ml Inj IV Q6HR PRN Anxiety Metoprolol Tartrate 50 mg 12/10/21 09:45 Metoprolol Tartrate 50 Mg Tab PO BID [facility] Morphine Sulfate 4 mg 12/09/21 23:33 12/10/21 00:22 Morphine Sulfate 4 Mg/Ml Syringe IV 4 mg Q4HR PRN Administration Severe Pain Naloxone HCl 0.2 mg 12/09/21 23:33 Naloxone 0.4 Mg/Ml 1 Ml Vial IV Q2M PRN Opioid Reversal Ondansetron HCl 4 mg 12/09/21 23:33 Ondansetron 4 Mg/2 Ml Vial IVP Q8HR PRN Nausea And Vomiting Intake and Output 0612/10/21 12/10/21 22:59 06:59 14:59 Output Total 600 Balance -600 Output: Urine 600 Other: Weight 113.398 kg 113.398 kg 12/10/21 03:43 12/10/21 03:43
[2021-12-10] MEDS ORDERED: GABAPENTIN 400 MG CAP PO SCH (21:00)
[2021-12-10 22:58] LABS: Glucose,Whole Blood 172 mg/dL (75-99)
[2021-12-11] MEDS: ALBUTEROL NEBULIZED 2.5 MG/3 ML INHALATION SCH ×7 (00:24→23:43)
[2021-12-11] MEDS ORDERED: SODIUM CHLORIDE 0.9% 500 ML 500 ML IV ONE (03:42)
[2021-12-11 03:48] LABS: Basophils % (A) 0 %; Eosinophils # (A) 0.1 k/uL (0-0.7); Eosinophils % (A) 2 %; HGB 7.9 gm/dL (11.4-16.0); Hypochromasia Marked; Lymphocytes # (A) 2.9 k/uL (1.0-4.8); Lymphocytes % (A) 38 %; MCH 26.9 pg (25.0-35.0); MCHC 29.4 g/dL (31.0-37.0); MCV 91.4 fL (80.0-100.0); Mean Platelet Volume 7.5; Monocytes # (A) 0.8 k/uL (0-1.0); Monocytes % (A) 10 %; Neutrophils # (A) 3.6 k/uL (1.3-7.7); Neutrophils % (A) 47 %; Platelet Count 380 k/uL (150-450); RBC 2.96 m/uL (3.80-5.40); RDW 14.8 % (11.5-15.5); WBC 7.8 k/uL (3.8-10.6)
[2021-12-11 04:02] LABS: African American GFR (CKD) 32 (>60 ml/min/1.73 sqM); Anion Gap 6 mmol/L; Blood Urea Nitrogen 35 mg/dL (7-17); Calcium 8.2 mg/dL (8.4-10.2); Carbon Dioxide 24 mmol/L (22-30); Chloride 100 mmol/L (98-107); Glucose 144 mg/dL (74-99); Non-African American GFR(CKD) 28 (>60 ml/min/1.73 sqM); Potassium 4.4 mmol/L (3.5-5.1); Sodium 130 mmol/L (137-145)
[2021-12-11] MEDS ORDERED: SODIUM CHLORIDE 0.9% 250 ML IV ONE (06:15)
--- NOTE | 2021-12-11 06:52 | XR ---
EXAMINATION TYPE: XR chest 1V portable DATE OF EXAM: 12/11/2021 COMPARISON: 12/09/2021 HISTORY: Shortness of breath TECHNIQUE: Single frontal view of the chest is obtained. FINDINGS: The heart is moderately enlarged but the pulmonary vasculature is not appear congested. There is no pleural effusion or pneumothorax. There is no airspace consolidation or interstitial opacity. There are chronic rotator cuff tears of both shoulders. IMPRESSION: No acute cardiopulmonary disease. There is moderate cardiomegaly.
[2021-12-11 08:22] LABS: Glucose,Whole Blood 129 mg/dL (75-99)
[2021-12-11] MEDS ORDERED: lisinopriL 5 MG TAB PO SCH (09:00)
[2021-12-11] MEDS ORDERED: FUROSEMIDE 80 MG TAB PO SCH (09:00)
[2021-12-11] MEDS: SODIUM CHLORIDE 0.9% 1,000 ML IV SCH (11:09)
[2021-12-11] MEDS: GABAPENTIN 100 MG CAP PO SCH ×3 (11:22→20:56)
[2021-12-11 11:55] LABS: Glucose,Whole Blood 124 mg/dL (75-99)
--- NOTE | 2021-12-11 12:07 | P.PN ---
Subjective Progress Note Date: 12/11/21 This is Dallas Krishnan NP, I'm dictating on behalf of Dr. Dorado's H&P and A&P. Patient was interviewed and examined. Patient is a pleasant 86-year-old female who initially presented to the hospital with exacerbation of COPD, CHF, and weakness. Patient reports that she is overall feeling better today, however it was reported to us that the 18 was called last night for significantly low blood pressures. Patient's blood pressure is still low today, but the patient is feeling better. She is being transferred to the select unit for more pulser monitoring. At this time she denies chest pain, shortness of breath and heart palpitations. Patient wants to get up and out of bed, but secondary to her lower blood pressures, we advised against that at this time. GENERAL: Well-appearing, well-nourished and in no acute distress. NECK: Supple without JVD or thyromegaly. LUNGS: Breath sounds clear to auscultation bilaterally. Respiration equal and unlabored. No wheezes, rales or rhonchi. HEART: Regular rate and rhythm without murmurs, rubs or gallops. S1 and S2 heard. EXTREMITIES: Normal range of motion, no edema. No clubbing or cyanosis. Peripheral pulses intact and strong. VITALS: Temp 97.9, pulse 98, blood pressure 79/28, O2 saturation 97% on 4 L via nasal cannula TELEMETRY: Normal sinus rhythm LABS: White count 7.8, hemoglobin 7.9, sodium 1:30, potassium 4.4, B1 35, creatinine 1.66, calcium 8.2 IMPRESSION/PLAN: 1. Hypotension, secondary to overmedication-hold Lasix, lisinopril, and metoprolol. When blood pressure normalizes, please resume these medications as previously ordered. Recommend against using hydralazine in the future. 2. Acute exacerbation congestive heart failure-stop IV fluids. 3. COPD-management with pulmonology 4. Shortness of breath-multiple etiologies, likely a combination of COPD and CHF. Further recommendations will be made based on the patient's clinical course. Objective - Vital Signs Vital signs: Vital Signs Temp 98.2 F 12/11/21 02:35 Pulse 88 12/11/21 07:48 Resp 18 06/12/22 07:43 BP 83/50 12/11/21 07:39 Pulse Ox 97 12/11/21 02:35 FiO2 28 12/10/21 19:27 Intake & Output 12/10/21 12/11/21 12/11/21 18:59 06:59 18:59 Intake Total 1080 750 Output Total 370 Balance 1080 380 Weight 113.7 kg Intake: Intake, IV Titration 750 Amount Sodium Chloride 0.9% 250 250 ml @ 999 mls/hr IV .Q16M [facility] Rx#:[id number] Sodium Chloride 0.9% 500 500 ml 500 ml @ 999 mls/hr IV .Q31M [facility] Rx#:[id number] Oral 1080 Output: Urine 370 Other: Voiding Method External Catheter External Catheter # Voids 1 - Labs CBC & Chem 7: 12/11/21 03:20 12/11/21 03:20 Labs: Abnormal Lab Results - Last 24 Hours (Table) 12/10/21 12/11/21 12/11/21 Range/Units 22:57 03:20 03:20 RBC 2.96 L (3.80-5.40) m/uL Hgb 7.9 L (11.4-16.0) gm/dL Hct 27.0 L (34.0-46.0) % MCHC 29.4 L (31.0-37.0) g/dL Sodium 130 L (137-145) mmol/L BUN 35 H (7-17) mg/dL Creatinine 1.66 H (0.52-1.04) mg/dL Glucose 144 H (74-99) mg/dL POC Glucose (mg/dL) 172 H (75-99) mg/dL Calcium 8.2 L (8.4-10.2) mg/dL 12/11/21 Range/Units 08:11 RBC (3.80-5.40) m/uL Hgb (11.4-16.0) gm/dL Hct (34.0-46.0) % MCHC (31.0-37.0) g/dL Sodium (137-145) mmol/L BUN (7-17) mg/dL Creatinine (0.52-1.04) mg/dL Glucose (74-99) mg/dL POC Glucose (mg/dL) 129 H (75-99) mg/dL Calcium (8.4-10.2) mg/dL
--- NOTE | 2021-12-11 12:30 | P.PN ---
Subjective Progress Note Date: 12/11/21 Principal diagnosis: Dyspnea Patient had been started on new antihypertensive regimen secondary to renal failure and coronary artery disease, dosing of kae was decreased, patient was started on beta dejan, patient never received hydralazine, became hypotensive and was transferred to the stepdown unit, blood pressure has significantly improved, glomerular filtration rate decreased below 30, would recommend holding kae inhibitor at this time secondary to GFR Objective - Vital Signs Vital signs: Vital Signs Temp 98 F 12/11/21 11:21 Pulse 91 12/11/21 11:21 Resp 20 12/11/21 11:21 BP 114/49 12/11/21 11:21 Pulse Ox 98 12/11/21 11:21 FiO2 28 12/10/21 19:27 Intake & Output 12/10/21 12/11/21 12/11/21 18:59 06:59 18:59 Intake Total 1080 750 Output Total 370 Balance 1080 380 Weight 113.7 kg Intake: Intake, IV Titration 750 Amount Sodium Chloride 0.9% 250 250 ml @ 999 mls/hr IV .Q16M [facility] Rx#:[id number] Sodium Chloride 0.9% 500 500 ml 500 ml @ 999 mls/hr IV .Q31M [facility] Rx#:[id number] Oral 1080 Output: Urine 370 Other: Voiding Method External Catheter External Catheter # Voids 1 - Exam General: [Patient awake, alert and oriented times 3. Patient in no acute distress. Morbidly obese HEENT: [PERRL. EOMI. No pharyngeal erythema or exudate.] Neck: [No adenopathy.] Cardiac: [Heart regular in rate and rhythm. No S3. No S4. No clicks, rubs. No murmur.] Lungs: [Clear to auscultation bilaterally.] Abdomen: [No mass. No organomegaly. Bowel sounds presnt and normoactive in all 4 quadrants. Morbid obesity Extremes: [1+ edema bilateral lower extremes no cyanosis no claudication normal pulses] : Normal female genitalia Musculoskeletal: [No joint erythema, edema or tenderness.] Skin: [No rash.] Neurologic: [No lateralizing deficits. CN II - XII grossly intact.] Lymphatic: [No adenopathy.] - Labs CBC & Chem 7: 12/11/21 03:20 12/11/21 03:20 Labs: Abnormal Lab Results - Last 24 Hours (Table) 12/10/21 12/11/21 12/11/21 Range/Units 22:57 03:20 03:20 RBC 2.96 L (3.80-5.40) m/uL Hgb 7.9 L (11.4-16.0) gm/dL Hct 27.0 L (34.0-46.0) % MCHC 29.4 L (31.0-37.0) g/dL Sodium 130 L (137-145) mmol/L BUN 35 H (7-17) mg/dL Creatinine 1.66 H (0.52-1.04) mg/dL Glucose 144 H (74-99) mg/dL POC Glucose (mg/dL) 172 H (75-99) mg/dL Calcium 8.2 L (8.4-10.2) mg/dL 12/11/21 12/11/21 Range/Units 08:11 11:54 RBC (3.80-5.40) m/uL Hgb (11.4-16.0) gm/dL Hct (34.0-46.0) % MCHC (31.0-37.0) g/dL Sodium (137-145) mmol/L BUN (7-17) mg/dL Creatinine (0.52-1.04) mg/dL Glucose (74-99) mg/dL POC Glucose (mg/dL) 129 H 124 H (75-99) mg/dL Calcium (8.4-10.2) mg/dL Assessment and Plan (1) CAD (coronary atherosclerotic disease) Current Visit: Yes Status: Acute Code(s): I25.10 - ATHSCL HEART DISEASE OF [place] CORONARY ARTERY W/O ANG PCTRS SNOMED Code(s): 161971092 (2) Acute exacerbation of chronic obstructive pulmonary disease Current Visit: Yes Status: Acute Code(s): J44.1 - CHRONIC OBSTRUCTIVE PULMONARY DISEASE W (ACUTE) EXACERBATION SNOMED Code(s): 988848471 (3) Acute on chronic diastolic (congestive) heart failure Current Visit: Yes Status: Acute Code(s): I50.33 - ACUTE ON CHRONIC DIASTOLIC (CONGESTIVE) HEART FAILURE SNOMED Code(s): 013403726 (4) Acute renal failure Current Visit: Yes Status: Acute Code(s): N17.9 - ACUTE KIDNEY FAILURE, UNSPECIFIED SNOMED Code(s): 04473300 (5) Generalized weakness Current Visit: Yes Status: Acute Code(s): R53.1 - WEAKNESS SNOMED Code(s): 00982748 (6) Acquired hypothyroidism Current Visit: No Status: Acute Code(s): E03.9 - HYPOTHYROIDISM, UNSPECIFIED SNOMED Code(s): 726378811 (7) Chronic bilateral low back pain with bilateral sciatica Current Visit: No Status: Acute Code(s): M54.42 - LUMBAGO WITH SCIATICA, LEFT SIDE; M54.41 - LUMBAGO WITH SCIATICA, RIGHT SIDE; G89.29 - OTHER CHRONIC PAIN SNOMED Code(s): 112469111 (8) Type 2 diabetes mellitus without complications Current Visit: No Status: Acute Code(s): E11.9 - TYPE 2 DIABETES MELLITUS WITHOUT COMPLICATIONS SNOMED Code(s): 322738397 Plan: Acute exacerbation of chronic COPD Acute on chronic renal failure GFR 28 we will stop KAE inhibitor Continue Lasix as scheduled for now Consult nephrology
--- NOTE | 2021-12-11 13:30 | P.PN ---
Subjective Progress Note Date: 12/11/21 86-year-old morbidly obese female patient, quite debilitated on a wheelchair, a lso known to have COPD and CHF with diastolic failure, coronary artery disease with previous multi coronary artery stenting and diabetes mellitus. The patient has been fully vaccinated for COVID 19. The patient comes in to the hospital because of worsening shortness of breath. She has also some increase in lower extremity edema. She has exertional dyspnea. Minimal cough. No significant sputum production. No fever or chills. No nausea vomiting or emesis. No altered mentation. In the emergency, the patient had a chest x-ray that showed cardiomegaly with pulmonary vascular congestion. The patient also had a blood work that showed a mildly elevated proBNP level. The patient was given Lasix and the patient is diuresing well for now and the patient is already feeling well on 2 L of oxygen by nasal cannula. Previous echocardiogram that was done in September 2021 showed a preserved LV function. No significant valvular abnormalities and there was evidence of hypertensive heart disease with diastolic failure. On 12/11/2021, the is being seen for a follow-up. Events from yesterday was noted. Following diuresis, the patient became hypotensive and the systolic blood pressure dropped down to the 70s and the patient became progressively more lethargic. The patient denied having any chest pain. No significant shortness of breath. No focal neurological deficits. The patient got transferred to telemetry unit where she was given fluids. Her blood pressure is normalized for now. On her blood work, the patient also has developed an acute kidney injury. The patient has a creatinine of 1.66 with a BUN of 33. The hemoglobin has dropped down to 7.9. The patient remains on oxygen on 2 L per minute and his doing well for now with a pulse ox of 90%. No new complaints otherwise. I came to find out that the patient has been having issues with her blood pressure control with wide fluctuations.. No other new complaints otherwise for now. No focal neurological deficits. Objective - Vital Signs Vital signs: Vital Signs Temp 98 F 12/11/21 11:21 Pulse 91 12/11/21 11:21 Resp 20 12/11/21 11:21 BP 114/49 12/11/21 11:21 Pulse Ox 98 12/11/21 11:21 FiO2 28 12/10/21 19:27 Intake & Output 12/10/21 12/11/21 12/11/21 18:59 06:59 18:59 Intake Total 1080 750 Output Total 370 Balance 1080 380 Weight 113.7 kg Intake: Intake, IV Titration 750 Amount Sodium Chloride 0.9% 250 250 ml @ 999 mls/hr IV .Q16M [facility] Rx#:[id number] Sodium Chloride 0.9% 500 500 ml 500 ml @ 999 mls/hr IV .Q31M [facility] Rx#:[id number] Oral 1080 Output: Urine 370 Other: Voiding Method External Catheter External Catheter # Voids 1 - Exam The patient appeared well nourished and normally developed. The patient is stable on 2 L about 2 by nasal cannula The patient is morbidly obese and she is calm and comfortable. No signs of any respiratory distress. Vital signs as documented. Head exam is unremarkable. No scleral icterus or corneal arcus noted. Neck is without jugular venous distension, thyromegaly, or carotid bruits. Carotid upstrokes are brisk bilaterally. Lungs are clear to auscultation and percussion. Cardiac exam reveals the PMI to be normally sized and situated. Rhythm is regular. First and second heart sounds normal. There is a systolic ejection murmur grade 3/6 heard throughout the precordium mainly in the left lateral sternal border, rubs or gallops. Abdominal exam reveals normal bowel sounds, no masses, no organomegaly and no aortic enlargement. Extremities are nonedematous and both femoral and pedal pulses are normal. The patient has chronic edema lower extremities bilaterally. No open wounds or sores or cellulitis. Neurologically, the patient is moving all 4 extremities. - Labs CBC & Chem 7: 12/11/21 03:20 12/11/21 03:20 Labs: Abnormal Lab Results - Last 24 Hours (Table) 12/10/21 12/11/21 12/11/21 Range/Units 22:57 03:20 03:20 RBC 2.96 L (3.80-5.40) m/uL Hgb 7.9 L (11.4-16.0) gm/dL Hct 27.0 L (34.0-46.0) % MCHC 29.4 L (31.0-37.0) g/dL Sodium 130 L (137-145) mmol/L BUN 35 H (7-17) mg/dL Creatinine 1.66 H (0.52-1.04) mg/dL Glucose 144 H (74-99) mg/dL POC Glucose (mg/dL) 172 H (75-99) mg/dL Calcium 8.2 L (8.4-10.2) mg/dL 12/11/21 12/11/21 Range/Units 08:11 11:54 RBC (3.80-5.40) m/uL Hgb (11.4-16.0) gm/dL Hct (34.0-46.0) % MCHC (31.0-37.0) g/dL Sodium (137-145) mmol/L BUN (7-17) mg/dL Creatinine (0.52-1.04) mg/dL Glucose (74-99) mg/dL POC Glucose (mg/dL) 129 H 124 H (75-99) mg/dL Calcium (8.4-10.2) mg/dL Assessment and Plan Plan: Shortness of breath, multifactorial, due to COPD/CHF component with some signs of exacerbation of CHF. Chest x-ray showing megaly with mild pulmonary vascular congestion. ProBNP level is mildly elevated. The patient was given IV Lasix and the patient has diuresed almost 1 L since yesterday. She is feeling better for today. Most recent echocardiogram shows hypertensive heart disease with preserved LV function/diastolic failure. Subsequently, the patient developed an acute hypotension Acute hypoxic respiratory failure currently on 2 L of oxygen by nasal cannula Acute hypotension, recovered Acute kidney injury Chronic COPD, maintained on Trelegy Ellipta on outpatient basis History of chronic obstructive pulmonary disease secondary to a remote history of chronic tobacco dependence. Currently on albuterol on a as-needed basis in the outpatient setting. Previous history of urinary tract infection secondary to Klebsiella pneumoniae and E. coli. Morbid obesity. Diabetes mellitus, type II CAD and previous stenting Hyperlipidemia. Osteoarthritis. History of hypertension. Chronic back pain with previous laminectomy and decompression involving the lumbosacral spine. Chronic neck pain. Acute on top of chronic anemia, exact etiology is not clear. We'll check occult stool and will check iron studies. No signs of any acute GI bleed and the patient's hemoglobin is at 8.9 and this probably also contributed to her shortness of breath. Plan Stop Lasix Allow oral intake including fluids Metoprolol dose has been dropped to 25 mg by mouth twice a day and Zestril has been discontinued Continue albuterol about treatments around the clock No need for antibiotics or any systemic steroids IV fluids KVO May use her Afsaneh Green from home Will follow
[2021-12-11] MEDS: METOPROLOL TARTRATE 25 MG TAB PO SCH ×2 (15:32→20:56)
[2021-12-11 16:11] LABS: Glucose,Whole Blood 157 mg/dL (75-99)
[2021-12-11 19:59] LABS: Glucose,Whole Blood 187 mg/dL (75-99)
[2021-12-12] MEDS: UMECLIDIN BL INHALATION SCH ×2 (00:51→20:50)
[2021-12-12] MEDS: VILANTER INHALATION SCH ×2 (00:51→20:50)
[2021-12-12] MEDS: FLUTICASONE INHALATION SCH ×2 (00:51→20:50)
[2021-12-12 03:19] LABS: Appearance,Urine Clear (Clear); Bacteria,Urine Occasional /hpf; Bilirubin,Urine Negative (Negative); Blood,Urine Negative (Negative); Color,Urine Light Yellow; Glucose,Urine (UA) 3+ (Negative); Ketones,Urine Negative (Negative); Leukocyte Esterase,Urine Large (Negative); Nitrite,Urine Negative (Negative); PH, Urine 6.5 (5.0-8.0); Protein,Urine Negative (Negative); RBC,Urine 1 /hpf (0-5); Specific Gravity,Urine 1.005 (1.001-1.035); Squamous Epithelial Cell,Urine <1 /hpf (0-4); Urobilinogen,Urine <2.0 mg/dL (<2.0); WBC,Urine 6 /hpf (0-5)
[2021-12-12] MEDS: SODIUM CHLORIDE 0.9% 1,000 ML IV SCH (03:57)
[2021-12-12] MEDS: ALBUTEROL NEBULIZED 2.5 MG/3 ML INHALATION SCH ×5 (04:10→20:50)
[2021-12-12 06:08] LABS: Glucose,Whole Blood 157 mg/dL (75-99)
[2021-12-12] MEDS ORDERED: SYMBICORT 80-4.5 MCG INHALER INHALATION SCH (08:00)
[2021-12-12] MEDS ORDERED: IPRATROPIUM 0.5 MG/2.5 ML NEBU INHALATION SCH (08:00)
[2021-12-12] MEDS: GABAPENTIN 100 MG CAP PO SCH ×3 (08:32→21:35)
[2021-12-12] MEDS: METOPROLOL TARTRATE 25 MG TAB PO SCH ×2 (08:32→21:35)
[2021-12-12 11:01] LABS: Calcium 8.8 mg/dL (8.4-10.2); Potassium 5.3 mmol/L (3.5-5.1)
--- NOTE | 2021-12-12 11:52 | P.NPCON ---
History of Present Illness - Reason for Consult acute renal failure - History of Present Illness Patient is an 86-year-old female with history of COPD and diastolic CHF. Patient also has coronary artery disease with previous coronary artery stenting. Patient is admitted to the hospital with shortness of breath and increased lower extremity swelling. Chest x-ray showed evidence of pulmonary vascular congestion and patient has been diuresed. Today she states she is feeling much better. Serum creatinine was 1.2 on initial admission and increased to 1.6 mg/dL yesterday. Today it is down to 1.1. Blood pressure was noted to be significantly low with systolic blood pressure as low as 71 and 70 mmHg yesterday. This is now improved to systolic of 126 today. KAE inhibitor's discontinued Patient has an external catheter with about 400 mL of urine documented for today. Review of Systems As per HPI Past Medical History Past Medical History: Chest Pain / Angina, Heart Failure, COPD, CVA/TIA, Diabetes Mellitus, Hyperlipidemia, Hypertension, Osteoarthritis (OA), Thyroid Disorder Additional Past Medical History / Comment(s): Using a wheelchair or a walker, bilateral peripheral neuropathy in feet and hands, chronic low back pain, lower leg edema. Last Myocardial Infarction Date:: 06/17/18 History of Any Multi-Drug Resistant Organisms: ESBL Date of last positivie culture/infection: 09/06/17 MDRO Source:: ESBL URINE Past Surgical History: Back Surgery, Heart Catheterization, Heart Catheterization With Stent, Joint Replacement, Orthopedic Surgery Additional Past Surgical History / Comment(s): Lumbar laminectomy decompression fusion L3-4 and L5-S1 with cell saver, lumbar instrumentation removal L4-5, L4- L5 laminectomy, BILATERAL KNEE REPLACEMENTS, ORIF RIGHT ANKLE, CERVICAL FUSION, bilateral rotator cuff repair, bilateral wrist carpal tunnel releases, pain procedures, left breast lumpectomy-benign, bilateral varicose vein stripping, bilateral cataracts, heart cath with 5 stents august-2021 Past Anesthesia/Blood Transfusion Reactions: No Reported Reaction Additional Past Anesthesia/Blood Transfusion Reaction / Comment(s): Pt states she has never received blood. Date of Last Stent Placement:: 08/30/2021 Past Psychological History: No Psychological Hx Reported Additional Psychological History / Comment(s): . Smoking Status: Former smoker Past Alcohol Use History: None Reported Additional Past Alcohol Use History / Comment(s): Pt started smoking in 7 and quit in 1974. She was a 1.5 ppd smoker. Past Drug Use History: None Reported - Past Family History Father Family Medical History: Myocardial Infarction ([place]) Additional Family Medical History / Comment(s): Father at 40 of a [place]. Mother Family Medical History: CVA/TIA Additional Family Medical History / Comment(s): Mother had a CVA Medications and Allergies Home Medications Medication Instructions Recorded Confirmed Type Nitroglycerin Sl Tabs [Nitrostat] 0.4 mg SUBLINGUAL Q5M PRN 07/20/15 12/09/21 History Atorvastatin Calcium [Lipitor] 40 mg PO HS #1 tab 08/04/15 12/09/21 Rx metFORMIN HCL [Glucophage] 1,000 mg PO BID 02/20/18 12/09/21 History Cyanocobalamin [Vitamin B-12 1,000 mcg SQ Q30D 07/06/19 12/09/21 History Injection] Gabapentin [Neurontin] 400 mg PO BID@0800,1600 07/06/19 12/09/21 History Gabapentin [Neurontin] 800 mg PO HS 07/06/19 12/09/21 History Levothyroxine Sodium [Synthroid] 50 mcg PO DAILY 07/06/19 12/09/21 History lisinopriL [Zestril] 10 mg PO BID 02/18/20 12/09/21 History Albuterol Nebulized [Ventolin 2.5 mg INHALATION RT-QID PRN 02/19/20 12/09/21 History Nebulized] HYDROcodone/APAP 5-325MG [[place] 1 tab PO TID 12/23/20 12/09/21 History 5-325] Fluticasone/Umeclidin/Vilanter 1 puff INHALATION RT-HS 10/15/21 12/09/21 History [Trelegy Ellipta 100-62.5-25] Pioglitazone [Actos] 15 mg PO DAILY #30 tab 10/21/21 12/09/21 Rx Apixaban [Eliquis] 2.5 mg PO BID 12/09/21 12/09/21 History Empagliflozin [Jardiance] 10 mg PO DAILY 12/09/21 12/09/21 History Furosemide [Lasix] 80 mg PO DAILY 12/09/21 12/09/21 History Metoprolol Tartrate [Lopressor] 50 mg PO QID 12/09/21 12/09/21 History Allergies Allergy/AdvReac Type Severity Reaction Status Date / Time Penicillins Allergy Rash/Hives Verified 12/09/21 21:29 Physical Exam Vitals: Vital Signs Temp Pulse Pulse Resp BP Pulse Ox 12/12/21 09:19 89 12/12/21 09:07 81 96 12/12/21 08:00 98.6 F 93 16 126/69 97 12/12/21 04:17 80 12/12/21 04:10 76 12/12/21 04:00 97.4 F L 78 15 116/70 100 12/12/21 00:00 98.4 F 95 14 117/68 99 12/11/21 23:53 80 12/11/21 23:43 79 99 12/11/21 20:18 110 H 12/11/21 20:09 107 H 12/11/21 20:00 98.1 F 95 14 112/68 99 12/11/21 16:23 83 12/11/21 16:13 81 12/11/21 16:00 97.6 F 94 17 88/43 97 12/11/21 14:00 98 F 90 19 104/49 98 12/11/21 12:39 92 12/11/21 12:29 92 Intake and Output 12/11/21 12/12/21 12/12/21 22:59 06:59 14:59 Intake Total 240 360 Output Total 200 400 Balance 240 -200 -40 Intake: Oral 240 360 Output: Urine 200 400 Other: Voiding Method External Catheter External Catheter External Catheter # Voids 1 Weight 113.8 kg Patient is awake, comfortable, not in any acute distress Examination of the heart S1 and S2 Exertion lungs bilateral breath sounds are heard Abdomen is soft nontender Examination lower extremities shows chronic skin changes chronic edema PROCTOLOGIST exam grossly intact Results - Lab Results Most recent lab results Calcium 8.8 mg/dL (8.4-10.2) 12/12/21 10:01 Phosphorus 3.1 mg/dL (2.5-4.5) 12/09/21 23:25 Magnesium 2.8 mg/dL (1.6-2.3) H 12/09/21 23:25 12/11/21 03:20 12/12/21 10:01 Assessment and Plan Assessment: 1. Acute kidney injury secondary to hypotension currently improved with improving blood pressures. Patient was on KAE inhibitor's currently on hold. UA shows no evidence of blood or protein. Check ultrasound to rule out obstruction 2. Volume overload currently improved 3. Acute hypoxic respiratory failure secondary to CHF as well as an element of COPD. Being followed by pulmonology 4. Coronary artery disease with history of coronary artery stenting 5. Anemia rule out iron deficiency Plan: Check iron profile Check bladder scan and rule out urine retention Check ultrasound of the kidneys Maintain gentle diuresis Repeat labs in a.m. Continue to hold IV fluids Thank you for the consultation. We'll continue to follow the patient with you during her hospitalization
[2021-12-12 11:53] LABS: Glucose,Whole Blood 133 mg/dL (75-99)
--- NOTE | 2021-12-12 13:11 | P.PN ---
Subjective Progress Note Date: 12/12/21 HISTORY OF PRESENT ILLNESS: This is an 86-year-old female who is admitted to the hospital secondary to COPD and congestive heart failure. The patient was started on IV diuretics. She developed hypotension and was transferred to [facility] for closer monitoring. Her SBP was in the 70s. Her cardiac medications, with the exception of metoprolol, were placed on hold. Her blood pressure this morning has improved with a recent reading of 126/69. Patients creatinine today is 1.15, down from 1.6. Patient is prescribed Eliquis on an outpatient basis, which has been held. She states she is prescribed this secondary to atrial fibrillation. Patient denies any s/s of GI bleeding. PHYSICAL EXAM: VITAL SIGNS: Reviewed. GENERAL: Well-developed in no acute distress. NECK: Supple. No JVD or thyromegaly LUNGS: Respirations even and unlabored. Lungs essentially clear to auscultation bilaterally. HEART: Regular rate and rhythm. S1 and S2 heard. EXTREMITIES: Normal range of motion. No clubbing or cyanosis. Peripheral pulses intact. No lower extremity edema ASSESSMENT: Acute COPD exacerbation Acute on chronic heart failure with preserved ejection fraction Hypotension, resolved Paroxysmal atrial fibrillation, per patient, on anticoagulation with Eliquis Anemia, etiology unclear Coronary artery disease Hypertension Hyperlipidemia Diabetes PLAN: Continue current cardiac medications KAE on hold Continue to monitor blood pressure IV lasix added today per nephrology Monitor kidney function Case discussed with primary medicine who would like to continue to hold Eliquis. Defer resuming Eliquis to their service. Further recommendations pending patient course Nurse practitioner note has been reviewed by physician. Signing provider agrees with the documented findings, assessment, and plan of care. Objective - Vital Signs Vital signs: Vital Signs Temp 98.6 F 12/12/21 08:00 Pulse 78 12/12/21 12:48 Resp 16 12/12/21 08:00 BP 126/69 12/12/21 08:00 Pulse Ox 96 12/12/21 09:07 FiO2 28 12/10/21 19:27 Intake & Output 12/11/21 12/12/21 12/12/21 18:59 06:59 18:59 Intake Total 240 240 600 Output Total 200 200 400 Balance 40 40 200 Weight 113.8 kg 113.8 kg Intake: Oral 240 240 600 Output: Urine 200 200 400 Other: Voiding Method External Catheter External Catheter External Catheter # Voids 1 - Labs CBC & Chem 7: 12/11/21 03:20 12/12/21 10:01 Labs: Abnormal Lab Results - Last 24 Hours (Table) 12/11/21 12/11/21 12/12/21 Range/Units 16:09 19:57 03:04 Sodium (137-145) mmol/L Potassium (3.5-5.1) mmol/L Carbon Dioxide (22-30) mmol/L BUN (7-17) mg/dL Creatinine (0.52-1.04) mg/dL Glucose (74-99) mg/dL POC Glucose (mg/dL) 157 H 187 H (75-99) mg/dL Urine Glucose (UA) 3+ H (Negative) Ur Leukocyte Esterase Large H (Negative) Urine WBC 6 H (0-5) /hpf Urine Bacteria Occasional H (None) /hpf 12/12/21 12/12/21 12/12/21 Range/Units 06:07 10:01 11:51 Sodium 136 L (137-145) mmol/L Potassium 5.3 H (3.5-5.1) mmol/L Carbon Dioxide 20 L (22-30) mmol/L BUN 28 H (7-17) mg/dL Creatinine 1.15 H (0.52-1.04) mg/dL Glucose 165 H (74-99) mg/dL POC Glucose (mg/dL) 157 H 133 H (75-99) mg/dL Urine Glucose (UA) (Negative) Ur Leukocyte Esterase (Negative) Urine WBC (0-5) /hpf Urine Bacteria (None) /hpf
--- NOTE | 2021-12-12 15:23 | P.PN ---
Subjective Progress Note Date: 12/12/21 Principal diagnosis: Shortness of breath 86-year-old morbidly obese female patient, quite debilitated on a wheelchair, also known to have COPD and CHF with diastolic failure, coronary artery disease with previous multi coronary artery stenting and diabetes mellitus. The patient has been fully vaccinated for COVID 19. The patient comes in to the hospital because of worsening shortness of breath. She has also some increase in lower extremity edema. She has exertional dyspnea. Minimal cough. No significant sputum production. No fever or chills. No nausea vomiting or emesis. No altered mentation. In the emergency, the patient had a chest x-ray that showed cardiomegaly with pulmonary vascular congestion. The patient also had a blood work that showed a mildly elevated proBNP level. The patient was given Lasix and the patient is diuresing well for now and the patient is already feeling well on 2 L of oxygen by nasal cannula. Previous echocardiogram that was done in September 2021 showed a preserved LV function. No significant valvular abnormalities and there was evidence of hypertensive heart disease with diastolic failure. On 12/11/2021, the is being seen for a follow-up. Events from yesterday was noted. Following diuresis, the patient became hypotensive and the systolic blood pressure dropped down to the 70s and the patient became progressively more lethargic. The patient denied having any chest pain. No significant shortness of breath. No focal neurological deficits. The patient got transferred to telemetry unit where she was given fluids. Her blood pressure is normalized for now. On her blood work, the patient also has developed an acute kidney injury. The patient has a creatinine of 1.66 with a BUN of 33. The hemoglobin has dropped down to 7.9. The patient remains on oxygen on 2 L per minute and his doing well for now with a pulse ox of 90%. No new complaints otherwise. I came to find out that the patient has been having issues with her blood pressure control with wide fluctuations.. No other new complaints otherwise for now. No focal neurological deficits. On 12/12/2021 patient seen in follow-up on selective care unit, she is awake and alert, in no acute distress, breathing comfortably, she states she is doing bet ter compared to when she first came into the hospital, she is on 2 L of oxygen at 96%. Chest x-ray shows improvement and clearing of the small pleural effusions. No significant edema involving bilateral lower extremities. Renal function is improving, and her creatinine is down to 1.15 on today's labs, B1 is a 28. Nephrology services are following, KAE inhibitor was placed on hold, Lasix dose has been cut back to once daily per nephrology recommendations. No nausea vomiting or diarrhea. Today's labs have been reviewed, and sodium is 136, potassium is 5.3, B1 is 20, and creatinine is 1.150 as mentioned above, urinalysis showed large amount of leuk trase, but no significant white blood ce lls to suggest acute urinary tract infection. Vital signs have been stable, troponins were negative 2, no cold but the chest discomfort, proBNP level was 1040. Objective - Vital Signs Vital signs: Vital Signs Temp 97.6 F 12/12/21 13:15 Pulse 85 12/12/21 13:15 Resp 18 12/12/21 13:15 BP 93/53 12/12/21 13:15 Pulse Ox 92 L 12/12/21 13:15 FiO2 28 12/10/21 19:27 Intake & Output 12/11/21 12/12/21 12/12/21 18:59 06:59 18:59 Intake Total 240 240 600 Output Total 200 200 400 Balance 40 40 200 Weight 113.8 kg 113.8 kg Intake: Oral 240 240 600 Output: Urine 200 200 400 Other: Voiding Method External Catheter External Catheter External Catheter # Voids 1 - Exam GENERAL EXAM: Alert, pleasant, 86-year-old white female, 2 L of oxygen the pulse ox of 92% comfortable in no apparent distress. HEAD: Normocephalic/atraumatic. EYES: Normal reaction of pupils, equal size. Conjunctiva pink, sclera white. NOSE: Clear with pink turbinates. THROAT: No erythema or exudates. NECK: No masses, no JVD, no thyroid enlargement, no adenopathy. CHEST: No chest wall deformity. Symmetrical expansion. LUNGS: Equal air entry with no crackles, wheeze, rhonchi or dullness. CVS: Regular rate and rhythm, normal S1 and S2, no gallops, no murmurs, no rubs ABDOMEN: Soft, nontender. No hepatosplenomegaly, normal bowel sounds, no guarding or rigidity. EXTREMITIES: No clubbing, no edema, no cyanosis, 2+ pulses and upper and lower extremities. MUSCULOSKELETAL: Muscle strength and tone normal. SPINE: No scoliosis or deformity SKIN: No rashes CENTRAL NERVOUS SYSTEM: Alert and oriented -3. No focal deficits, tone is normal in all 4 extremities. PSYCHIATRIC: Alert and oriented -3. Appropriate affect. Intact judgment and insight. - Labs CBC & Chem 7: 12/11/21 03:20 12/12/21 10:01 Labs: Abnormal Lab Results - Last 24 Hours (Table) 12/11/21 12/11/21 12/12/21 Range/Units 16:09 19:57 03:04 Sodium (137-145) mmol/L Potassium (3.5-5.1) mmol/L Carbon Dioxide (22-30) mmol/L BUN (7-17) mg/dL Creatinine (0.52-1.04) mg/dL Glucose (74-99) mg/dL POC Glucose (mg/dL) 157 H 187 H (75-99) mg/dL Urine Glucose (UA) 3+ H (Negative) Ur Leukocyte Esterase Large H (Negative) Urine WBC 6 H (0-5) /hpf Urine Bacteria Occasional H (None) /hpf 12/12/21 12/12/21 12/12/21 Range/Units 06:07 10:01 11:51 Sodium 136 L (137-145) mmol/L Potassium 5.3 H (3.5-5.1) mmol/L Carbon Dioxide 20 L (22-30) mmol/L BUN 28 H (7-17) mg/dL Creatinine 1.15 H (0.52-1.04) mg/dL Glucose 165 H (74-99) mg/dL POC Glucose (mg/dL) 157 H 133 H (75-99) mg/dL Urine Glucose (UA) (Negative) Ur Leukocyte Esterase (Negative) Urine WBC (0-5) /hpf Urine Bacteria (None) /hpf Assessment and Plan Plan: Assessment: #1. Shortness of breath, multifactorial, due to COPD/CHF component with some s igns of exacerbation of CHF. Chest x-ray showing megaly with mild pulmonary vascular congestion. ProBNP level is mildly elevated. The patient was given IV Lasix and the patient has diuresed almost 1 L since yesterday. She is feeling better for today. Most recent echocardiogram shows hypertensive heart disease with preserved LV function/diastolic failure. Subsequently, the patient developed an acute hypotension #2. Acute hypoxic respiratory failure currently on 2 L of oxygen by nasal sinai vanessa #3. Acute hypotension, recovered #4. Acute kidney injury #5. Chronic COPD, maintained on Trelegy Ellipta on outpatient basis #6. History of chronic obstructive pulmonary disease secondary to a remote history of chronic tobacco dependence. Currently on albuterol on a as-needed basis in the outpatient setting. #7. Previous history of urinary tract infection secondary to Klebsiella pneumoni ae and E. coli. #8. Morbid obesity. #9. Diabetes mellitus, type II #10. CAD and previous stenting #11. Hyperlipidemia. #12. Osteoarthritis. #13. History of hypertension. #14. Chronic back pain with previous laminectomy and decompression involving the lumbosacral spine. #15. Chronic neck pain. #16. Acute on top of chronic anemia, exact etiology is not clear. We'll check occult stool and will check iron studies. No signs of any acute GI bleed and the patient's hemoglobin is at 8.9 and this probably also contributed to her shortness of breath. Plan: Continue Trelegy Nebulized albuterol as needed for shortness of breath Breathing is improving Fluid status is improving Lasix has been cut back to once daily Renal function is improving From pulmonary perspective patient can be cleared for discharge 1 cleared by other consultants on the case I have personally seen and examined the patient, performed the documentation and the assessment and plan as written. Number of minutes spent on the visit: [10] Time with Patient: Less than 30
--- NOTE | 2021-12-12 15:57 | US ---
EXAMINATION TYPE: US kidneys/renal and bladder DATE OF EXAM: 12/12/2021 COMPARISON: US CLINICAL HISTORY: tory. TORY EXAM MEASUREMENTS: Right Kidney: 9.6 x 4.4 x 5.0 cm Left Kidney: 9.9 x 4.7 x 4.5 cm Right Kidney: Appeared wnl Left Kidney: No evidence of hydro, difficult to visualize due to pt morbidly obesity and overlying hitesh wel gas Bladder: Pt has catheter in place Incidental finding enlarged liver No evident renal mass. Cortical medullary differentiation is maintained. IMPRESSION: Exam is somewhat limited technically. No evident hydronephrosis.
[2021-12-12 16:19] LABS: Glucose,Whole Blood 148 mg/dL (75-99)
[2021-12-12] MEDS: PANTOPRAZOLE 40 MG/10 ML VIAL IVP SCH (17:22)
--- NOTE | 2021-12-12 17:48 | P.PN ---
Subjective Progress Note Date: 12/12/21 H&P Date: 12/10/21 Chief Complaint: Dyspnea, hypertension, known history coronary artery disease This is an 86-year-old female well-known practice who presented to the emergency room was shortness of breath CHF patient has COPD without evidence of fever. Mild lower extremity edema recently underwent heart catheterization with multiple stent placement within the last year. No recent sick contacts no recent travel no evidence of damico virus Progress Note Date: 12/11/21 Principal diagnosis: Dyspnea Patient had been started on new antihypertensive regimen secondary to renal failure and coronary artery disease, dosing of kae was decreased, patient was started on beta dejan, patient never received hydralazine, became hypotensive and was transferred to the stepdown unit, blood pressure has significantly improved, glomerular filtration rate decreased below 30, would recommend holding kae inhibitor at this time secondary to GFR 12/12/2021 Diuresing well on Lasix IV push, chest x-ray from 12/11/2021 reporting improvement, maintaining O2 sats in the 90s on 2 L nasal cannula. Bicarb 20. Maintained on diuretics and KAE inhibitor discontinued as per nephrology. Renal function improving, creatinine decreased to 1.15. Potassium 5.3. Renal ultrasound pending. Consuming 50% with no nausea vomiting or diarrhea. Denies any abdominal pain. Blood sugars 150s to 160s. Denies chest pain, palpitations or increased shortness of breath. Objective - Vital Signs Vital signs: Vital Signs Temp 97.6 F 12/12/21 13:15 Pulse 91 12/12/21 15:51 Resp 18 12/12/21 13:15 BP 93/53 12/12/21 13:15 Pulse Ox 92 L 12/12/21 13:15 FiO2 28 12/10/21 19:27 Intake & Output 12/11/21 12/12/21 12/12/21 18:59 06:59 18:59 Intake Total 240 240 600 Output Total 200 200 400 Balance 40 40 200 Weight 113.8 kg 113.8 kg Intake: Oral 240 240 600 Output: Urine 200 200 400 Other: Voiding Method External Catheter External Catheter External Catheter # Voids 3 - Exam General: Awake, alert and oriented X 3. Patient in no acute distress. HEENT: [PERRL. EOMI. No pharyngeal erythema or exudate.] Neck: Supple, no JVD Cardiac: [Heart regular in rate and rhythm. No S3. No S4. No murmur.] Lungs: Clear but diminished bilaterally. Abdomen: Soft, nondistended, nontender. No palpable mass. No guarding. Positive Bowel sounds. Extremes: decreased edema bilateral lower extremes no cyanosis no claudication normal pulses] Skin: [Warm and dry, No rash.] - Labs CBC & Chem 7: 12/11/21 03:20 12/12/21 10:01 Labs: Abnormal Lab Results - Last 24 Hours (Table) 12/11/21 12/12/21 12/12/21 Range/Units 19:57 03:04 06:07 Sodium (137-145) mmol/L Potassium (3.5-5.1) mmol/L Carbon Dioxide (22-30) mmol/L BUN (7-17) mg/dL Creatinine (0.52-1.04) mg/dL Glucose (74-99) mg/dL POC Glucose (mg/dL) 187 H 157 H (75-99) mg/dL Urine Glucose (UA) 3+ H (Negative) Ur Leukocyte Esterase Large H (Negative) Urine WBC 6 H (0-5) /hpf Urine Bacteria Occasional H (None) /hpf 12/12/21 12/12/21 12/12/21 Range/Units 10:01 11:51 16:18 Sodium 136 L (137-145) mmol/L Potassium 5.3 H (3.5-5.1) mmol/L Carbon Dioxide 20 L (22-30) mmol/L BUN 28 H (7-17) mg/dL Creatinine 1.15 H (0.52-1.04) mg/dL Glucose 165 H (74-99) mg/dL POC Glucose (mg/dL) 133 H 148 H (75-99) mg/dL Urine Glucose (UA) (Negative) Ur Leukocyte Esterase (Negative) Urine WBC (0-5) /hpf Urine Bacteria (None) /hpf Assessment and Plan Assessment: (1) Acute on chronic diastolic (congestive) heart failure Current Visit: Yes Status: Acute Code(s): I50.33 - ACUTE ON CHRONIC DIASTOLIC (CONGESTIVE) HEART FAILURE SNOMED Code(s): 174238426 (2) Acute exacerbation of chronic obstructive pulmonary disease Current Visit: No Status: Acute Code(s): J44.1 - CHRONIC OBSTRUCTIVE PULMONARY DISEASE W (ACUTE) EXACERBATION SNOMED Code(s): 339889948 (3) Acute hypoxic respiratory failure secondary all the above (4) acute renal failure (5) acute on chronic anemia, etiology unclear (6) Type 2 diabetes mellitus Current Visit: Yes Status: Acute Code(s): E11.9 - TYPE 2 DIABETES MELLITUS WITHOUT COMPLICATIONS SNOMED Code(s): 298333233 (7) CAD, history of stenting (8) Hypertension Current Visit: No Status: Acute Code(s): I10 - ESSENTIAL (PRIMARY) HYPERTENSION SNOMED Code(s): 57756896 (8) morbid obesity, BMI 44.4 (9) termination clerk prescription opiate use Current Visit: Yes Status: Acute Code(s): Z79.891 - RETIREMENT (CURRENT) USE OF OPIATE ANALGESIC SNOMED Code(s): 683971319 (10) Acquired hypothyroidism Current Visit: Yes Status: Acute Code(s): E03.9 - HYPOTHYROIDISM, UNSPECIFIED SNOMED Code(s): 143560926 (11) Debility Current Visit: Yes Status: Acute Code(s): R53.81 - OTHER MALAISE SNOMED Code(s): 04053627 (12) Chronic paroxysmal atrial fibrillation , on Eliquis, currently on hold secondary to anemia (13) chronic back pain, history of laminectomy and decompression (14) History of UTI secondary to Klebsiella pneumoniae and E. coli Plan: Continue on current medication regime ,monitoring and symptomatic treatment. Eliquis on hold. Stool for occult blood. Close monitoring of CBC, renal function with repeat labs ordered for a.m.Diuretics as per nephrology. KAE inhibitor discontinued. Aggressive pulmonary toileting with nebulized bronchodilators, Trelogy. Discharge planning in progress for home with , pending consults clearance. The impression and plan of care has been dictated as directed. : I performed a history and examination of this patient, discussed the same with the dictator. I agree with the dictator's note ,documented as a scribe. Any additional findings or plans will be noted.
[2021-12-12] MEDS ORDERED: VILANTER INHALATION SCH (20:00)
[2021-12-12] MEDS ORDERED: FLUTICASONE INHALATION SCH (20:00)
[2021-12-12] MEDS ORDERED: UMECLIDIN BL INHALATION SCH (20:00)
[2021-12-12 20:40] LABS: Glucose,Whole Blood 143 mg/dL (75-99)
[2021-12-13] MEDS: SODIUM CHLORIDE 0.9% 1,000 ML IV SCH (01:01)
[2021-12-13] MEDS: ALBUTEROL NEBULIZED 2.5 MG/3 ML INHALATION SCH ×5 (01:28→15:10)
[2021-12-13 06:07] LABS: Glucose,Whole Blood 142 mg/dL (75-99)
[2021-12-13] MEDS ORDERED: FUROSEMIDE 10 MG/ML 4 ML VIAL IV SCH (09:00)
[2021-12-13] MEDS: PANTOPRAZOLE 40 MG/10 ML VIAL IVP SCH (09:03)
[2021-12-13] MEDS: METOPROLOL TARTRATE 25 MG TAB PO SCH (09:04)
[2021-12-13] MEDS: GABAPENTIN 100 MG CAP PO SCH (09:04)
[2021-12-13] MEDS ORDERED: METOPROLOL TARTRATE 25 MG TAB PO STA (09:52)
--- NOTE | 2021-12-13 11:03 | P.PN ---
Subjective Patient is seen for follow-up for acute kidney injury and top of chronic kidney disease. Patient was admitted to the hospital with shortness of breath. She was found to be hypotensive. Serum creatinine improved from 1.6-1.1 mg/dL yesterday. Blood pressures are much better now. KAE inhibitor's currently on hold next Overall patient states she is feeling much better today. Objective - Vital Signs Vital signs: Vital Signs Temp 98.1 F 12/13/21 09:00 Pulse 83 12/13/21 09:00 Resp 16 12/13/21 09:00 BP 131/60 12/13/21 09:00 Pulse Ox 99 12/13/21 09:00 FiO2 28 12/10/21 19:27 Intake & Output 12/12/21 12/13/21 12/13/21 18:59 06:59 18:59 Intake Total 840 480 Output Total 750 900 Balance 90 -900 480 Weight 113.8 kg 112.8 kg Intake: Oral 840 480 Output: Urine 750 900 Other: Voiding Method External Catheter External Catheter External Catheter # Voids 3 - Exam Patient is comfortable awake not in any acute distress Examination of the heart S1 and S2 Examination lungs bilateral breath sounds are heard Abdomen is soft nontender Examination of the lower extremities shows trace edema - Labs CBC & Chem 7: 12/11/21 03:20 12/12/21 10:01 Labs: Abnormal Lab Results - Last 24 Hours (Table) 12/12/21 12/12/21 12/12/21 Range/Units 10:01 11:51 16:18 Sodium 136 L (137-145) mmol/L Potassium 5.3 H (3.5-5.1) mmol/L Carbon Dioxide 20 L (22-30) mmol/L BUN 28 H (7-17) mg/dL Creatinine 1.15 H (0.52-1.04) mg/dL Glucose 165 H (74-99) mg/dL POC Glucose (mg/dL) 133 H 148 H (75-99) mg/dL 12/12/21 12/13/21 Range/Units 20:39 06:06 Sodium (137-145) mmol/L Potassium (3.5-5.1) mmol/L Carbon Dioxide (22-30) mmol/L BUN (7-17) mg/dL Creatinine (0.52-1.04) mg/dL Glucose (74-99) mg/dL POC Glucose (mg/dL) 143 H 142 H (75-99) mg/dL Assessment and Plan Assessment: 1. Acute kidney injury secondary to hypotension currently improved with improving blood pressures. Patient was on KAE inhibitor's currently on hold. UA shows no evidence of blood or protein. Ultrasound is unremarkable. No obstruction 2. Volume overload currently improved 3. Acute hypoxic respiratory failure secondary to CHF as well as an element of COPD. Being followed by pulmonology 4. Coronary artery disease with history of coronary artery stenting 5. Anemia rule out iron deficiency Plan: Check iron profile Maiintain gentle diuresis Repeat labs today and in a.m. Continue to hold IV fluids
[2021-12-13 11:05] LABS: Potassium 5.2 mmol/L (3.5-5.1)
[2021-12-13 12:30] LABS: Glucose,Whole Blood 127 mg/dL (75-99)
[2021-12-13 12:38] LABS: Basophils # (A) 0.1 k/uL (0-0.2); Basophils % (A) 1 %; Eosinophils # (A) 0.2 k/uL (0-0.7); Eosinophils % (A) 2 %; HCT 31.9 % (34.0-46.0); HGB 9.3 gm/dL (11.4-16.0); Hypochromasia Marked; Lymphocytes # (A) 2.9 k/uL (1.0-4.8); Lymphocytes % (A) 30 %; MCH 27.2 pg (25.0-35.0); MCHC 29.1 g/dL (31.0-37.0); MCV 93.2 fL (80.0-100.0); Mean Platelet Volume 7.9; Monocytes # (A) 0.9 k/uL (0-1.0); Monocytes % (A) 9 %; Neutrophils # (A) 5.3 k/uL (1.3-7.7); Neutrophils % (A) 55 %; Platelet Count 428 k/uL (150-450); RBC 3.43 m/uL (3.80-5.40); RDW 14.6 % (11.5-15.5); WBC 9.7 k/uL (3.8-10.6)
--- NOTE | 2021-12-13 13:10 | P.PN ---
Subjective Progress Note Date: 12/13/21 HISTORY OF PRESENT ILLNESS: This is an 86-year-old female who is admitted to the hospital secondary to COPD and congestive heart failure. The patient was started on IV diuretics. She developed hypotension and was transferred to [facility] for closer monitoring. Her SBP was in the 70s. Her cardiac medications, with the exception of metoprolol, were placed on hold. Her blood pressure this morning has improved with a recent reading of 126/69. Patients creatinine today is 1.15, down from 1.6. Patient is prescribed Eliquis on an outpatient basis, which has been held. She states she is prescribed this secondary to atrial fibrillation. Patient denies any s/s of GI bleeding. 12/13/2021 Patient examined this morning. She is sitting up in the chair. She denies chest pain or pressure. She denies SOB. Patient had an episode of tachycardia early this morning. Per nursing, patient was not wearing her oxygen at that time. She is maintaining sinus mechanism this morning. PHYSICAL EXAM: VITAL SIGNS: Reviewed. GENERAL: Well-developed in no acute distress. NECK: Supple. No JVD or thyromegaly LUNGS: Respirations even and unlabored. Lungs essentially clear to auscultation bilaterally. HEART: Regular rate and rhythm. S1 and S2 heard. EXTREMITIES: Normal range of motion. No clubbing or cyanosis. Peripheral pulses intact. No lower extremity edema ASSESSMENT: Acute COPD exacerbation Acute on chronic heart failure with preserved ejection fraction Hypotension, resolved Paroxysmal atrial fibrillation, per patient, on anticoagulation with Eliquis Anemia, etiology unclear Coronary artery disease Hypertension Hyperlipidemia Diabetes PLAN: Continue current cardiac medications Increase metoprolol to 50mg BID KAE on hold Continue to monitor blood pressure IV lasix per nephrology Monitor kidney function Case discussed with primary medicine yesterday who would like to continue to hold Eliquis. Defer resuming Eliquis to their service. Further recommendations pending patient course Nurse practitioner note has been reviewed by physician. Signing provider agrees with the documented findings, assessment, and plan of care. Objective - Vital Signs Vital signs: Vital Signs Temp 98.1 F 12/13/21 09:00 Pulse 84 12/13/21 12:13 Resp 16 12/13/21 09:00 BP 131/60 12/13/21 09:00 Pulse Ox 99 12/13/21 09:00 FiO2 28 12/10/21 19:27 Intake & Output 12/12/21 12/13/21 12/13/21 18:59 06:59 18:59 Intake Total 840 480 Output Total 750 900 Balance 90 -900 480 Weight 113.8 kg 112.8 kg Intake: Oral 840 480 Output: Urine 750 900 Other: Voiding Method External Catheter External Catheter External Catheter # Voids 3 - Labs CBC & Chem 7: 12/13/21 09:49 12/13/21 09:49 Labs: Abnormal Lab Results - Last 24 Hours (Table) 12/12/21 12/12/21 12/13/21 Range/Units 16:18 20:39 06:06 RBC (3.80-5.40) m/uL Hgb (11.4-16.0) gm/dL Hct (34.0-46.0) % MCHC (31.0-37.0) g/dL Sodium (137-145) mmol/L Potassium (3.5-5.1) mmol/L Carbon Dioxide (22-30) mmol/L BUN (7-17) mg/dL Glucose (74-99) mg/dL POC Glucose (mg/dL) 148 H 143 H 142 H (75-99) mg/dL 12/13/21 12/13/21 12/13/21 Range/Units 09:49 09:49 12:26 RBC 3.43 L (3.80-5.40) m/uL Hgb 9.3 L (11.4-16.0) gm/dL Hct 31.9 L (34.0-46.0) % MCHC 29.1 L (31.0-37.0) g/dL Sodium 135 L (137-145) mmol/L Potassium 5.2 H (3.5-5.1) mmol/L Carbon Dioxide 21 L (22-30) mmol/L BUN 30 H (7-17) mg/dL Glucose 166 H (74-99) mg/dL POC Glucose (mg/dL) 127 H (75-99) mg/dL
[2021-12-13 13:29] VITALS: BP 108/51; PULSE 82; RESP 18; TEMP 98.8
--- NOTE | 2021-12-13 13:40 | P.PN ---
Subjective Progress Note Date: 12/13/21 Principal diagnosis: Shortness of breath 86-year-old morbidly obese female patient, quite debilitated on a wheelchair, also known to have COPD and CHF with diastolic failure, coronary artery disease with previous multi coronary artery stenting and diabetes mellitus. The patient has been fully vaccinated for COVID 19. The patient comes in to the hospital because of worsening shortness of breath. She has also some increase in lower extremity edema. She has exertional dyspnea. Minimal cough. No significant sputum production. No fever or chills. No nausea vomiting or emesis. No altered mentation. In the emergency, the patient had a chest x-ray that showed cardiomegaly with pulmonary vascular congestion. The patient also had a blood work that showed a mildly elevated proBNP level. The patient was given Lasix and the patient is diuresing well for now and the patient is already feeling well on 2 L of oxygen by nasal cannula. Previous echocardiogram that was done in September 2021 showed a preserved LV function. No significant valvular abnormalities and there was evidence of hypertensive heart disease with diastolic failure. On 12/11/2021, the is being seen for a follow-up. Events from yesterday was noted. Following diuresis, the patient became hypotensive and the systolic blood pressure dropped down to the 70s and the patient became progressively more lethargic. The patient denied having any chest pain. No significant shortness of breath. No focal neurological deficits. The patient got transferred to telemetry unit where she was given fluids. Her blood pressure is normalized for now. On her blood work, the patient also has developed an acute kidney injury. The patient has a creatinine of 1.66 with a BUN of 33. The hemoglobin has dropped down to 7.9. The patient remains on oxygen on 2 L per minute and his doing well for now with a pulse ox of 90%. No new complaints otherwise. I came to find out that the patient has been having issues with her blood pressure control with wide fluctuations.. No other new complaints otherwise for now. No focal neurological deficits. On 12/12/2021 patient seen in follow-up on selective care unit, she is awake and alert, in no acute distress, breathing comfortably, she states she is doing bet ter compared to when she first came into the hospital, she is on 2 L of oxygen at 96%. Chest x-ray shows improvement and clearing of the small pleural effusions. No significant edema involving bilateral lower extremities. Renal function is improving, and her creatinine is down to 1.15 on today's labs, B1 is a 28. Nephrology services are following, KAE inhibitor was placed on hold, Lasix dose has been cut back to once daily per nephrology recommendations. No nausea vomiting or diarrhea. Today's labs have been reviewed, and sodium is 136, potassium is 5.3, B1 is 20, and creatinine is 1.150 as mentioned above, urinalysis showed large amount of leuk trase, but no significant white blood ce lls to suggest acute urinary tract infection. Vital signs have been stable, troponins were negative 2, no cold but the chest discomfort, proBNP level was 1040. On 12/13/2021 patient seen in follow-up on medical surgical floor. Patient is resting comfortably in bed, appears to be in no acute distress, she is oriented 3, she is responding appropriately, vital signs have been stable, room air pu lse ox is 99%, vital signs have been stable, no fever or chills. No complaint of chest discomfort, no worsening dyspnea or hypoxia. Today's labs have been reviewed, and creatinine has normalized and is currently down to 0.98, BUN is 30, sodium is 135, potassium is 5.2, white blood cell count is 9.7, hemoglobin is 9.3. Patient's Lasix has been cut back to once daily. No worsening shortness of breath, cough, no significant lower extremity edema, nephrology service has been following. IV fluids have been cut back to KVO Objective - Vital Signs Vital signs: Vital Signs Temp 98.8 F 12/13/21 13:15 Pulse 82 12/13/21 13:15 Resp 18 12/13/21 13:15 BP 108/51 12/13/21 13:15 Pulse Ox 99 12/13/21 13:15 FiO2 28 12/10/21 19:27 Intake & Output 12/12/21 12/13/21 12/13/21 18:59 06:59 18:59 Intake Total 840 480 Output Total 750 900 Balance 90 -900 480 Weight 113.8 kg 112.8 kg Intake: Oral 840 480 Output: Urine 750 900 Other: Voiding Method External Catheter External Catheter External Catheter # Voids 3 - Exam GENERAL EXAM: Alert, pleasant, 86-year-old white female, 2 L of oxygen the pulse ox of 92% comfortable in no apparent distress. HEAD: Normocephalic/atraumatic. EYES: Normal reaction of pupils, equal size. Conjunctiva pink, sclera white. NOSE: Clear with pink turbinates. THROAT: No erythema or exudates. NECK: No masses, no JVD, no thyroid enlargement, no adenopathy. CHEST: No chest wall deformity. Symmetrical expansion. LUNGS: Equal air entry with no crackles, wheeze, rhonchi or dullness. CVS: Regular rate and rhythm, normal S1 and S2, no gallops, no murmurs, no rubs ABDOMEN: Soft, nontender. No hepatosplenomegaly, normal bowel sounds, no guarding or rigidity. EXTREMITIES: No clubbing, no edema, no cyanosis, 2+ pulses and upper and lower extremities. MUSCULOSKELETAL: Muscle strength and tone normal. SPINE: No scoliosis or deformity SKIN: No rashes CENTRAL NERVOUS SYSTEM: Alert and oriented -3. No focal deficits, tone is normal in all 4 extremities. PSYCHIATRIC: Alert and oriented -3. Appropriate affect. Intact judgment and insight. - Labs CBC & Chem 7: 12/13/21 09:49 12/13/21 09:49 Labs: Abnormal Lab Results - Last 24 Hours (Table) 12/12/21 12/12/21 12/13/21 Range/Units 16:18 20:39 06:06 RBC (3.80-5.40) m/uL Hgb (11.4-16.0) gm/dL Hct (34.0-46.0) % MCHC (31.0-37.0) g/dL Sodium (137-145) mmol/L Potassium (3.5-5.1) mmol/L Carbon Dioxide (22-30) mmol/L BUN (7-17) mg/dL Glucose (74-99) mg/dL POC Glucose (mg/dL) 148 H 143 H 142 H (75-99) mg/dL 12/13/21 12/13/21 12/13/21 Range/Units 09:49 09:49 12:26 RBC 3.43 L (3.80-5.40) m/uL Hgb 9.3 L (11.4-16.0) gm/dL Hct 31.9 L (34.0-46.0) % MCHC 29.1 L (31.0-37.0) g/dL Sodium 135 L (137-145) mmol/L Potassium 5.2 H (3.5-5.1) mmol/L Carbon Dioxide 21 L (22-30) mmol/L BUN 30 H (7-17) mg/dL Glucose 166 H (74-99) mg/dL POC Glucose (mg/dL) 127 H (75-99) mg/dL Assessment and Plan Plan: Assessment: #1. Shortness of breath, multifactorial, due to COPD/CHF component with some signs of exacerbation of CHF. Chest x-ray showing megaly with mild pulmonary vascular congestion. ProBNP level is mildly elevated. The patient was given IV Lasix and the patient has diuresed almost 1 L since yesterday. She is feeling better for today. Most recent echocardiogram shows hypertensive heart disease with preserved LV function/diastolic failure. Subsequently, the patient developed an acute hypotension #2. Acute hypoxic respiratory failure currently on 2 L of oxygen by nasal cannula #3. Acute hypotension, recovered #4. Acute kidney injury #5. Chronic COPD, maintained on Trelegy Ellipta on outpatient basis #6. History of chronic obstructive pulmonary disease secondary to a remote history of chronic tobacco dependence. Currently on albuterol on a as-needed basis in the outpatient setting. #7. Previous history of urinary tract infection secondary to Klebsiella pneumoniae and E. coli. #8. Morbid obesity. #9. Diabetes mellitus, type II #10. CAD and previous stenting #11. Hyperlipidemia. #12. Osteoarthritis. #13. History of hypertension. #14. Chronic back pain with previous laminectomy and decompression involving the lumbosacral spine. #15. Chronic neck pain. #16. Acute on top of chronic anemia, exact etiology is not clear. We'll check occult stool and will check iron studies. No signs of any acute GI bleed and the patient's hemoglobin is at 8.9 and this probably also contributed to her shortness of breath. Plan: Patient is doing well, breathing comfortably She is maintaining negative net fluid balance Diuretics have been adjusted, renal function has recovered Nephrology service recommendations Patient COPD is stable, no worsening dyspnea, coughing or wheezing Continue Trelegy Nebulized albuterol as needed for shortness of breath From pulmonary perspective patient can be cleared for discharge 1 cleared by other consultants on the case I have personally seen and examined the patient, performed the documentation and the assessment and plan as written. Number of minutes spent on the visit: [10] Time with Patient: Less than 30
[2021-12-13 18:38] LABS: % Iron Saturation 3.8 (12.00-45.00)
[2021-12-13] MEDS ORDERED: METOPROLOL TARTRATE 50 MG TAB PO SCH (21:00)
--- NOTE | 2021-12-15 12:19 | P.DS ---
Providers Date of admission: 12/09/21 23:33 Expected date of discharge: 12/15/21 Attending physician: Дмитрий Montoya Consults: 12/09/21 23:33 Consult Physician Routine Consulting Provider: Negrito Palomares Consult Reason/Comments: copd Do you want consulting provider notified?: Yes Consult Physician Routine Consulting Provider: Franklin Case Consult Reason/Comments: chf Do you want consulting provider notified?: Yes 12/11/21 12:30 Consult Physician Routine Consulting Provider: Beau Whitney Consult Reason/Comments: Renal failure Do you want consulting provider notified?: Yes Primary care physician: [facility] Course: (1) Acute on chronic diastolic (congestive) heart failure Current Visit: Yes Status: Acute Code(s): I50.33 - ACUTE ON CHRONIC DIASTOLIC (CONGESTIVE) HEART FAILURE SNOMED Code(s): 410647931 (2) Acute exacerbation of chronic obstructive pulmonary disease Current Visit: No Status: Acute Code(s): J44.1 - CHRONIC OBSTRUCTIVE PULMO NARY DISEASE W (ACUTE) EXACERBATION SNOMED Code(s): 464535622 (3) Acute hypoxic respiratory failure secondary all the above (4) acute renal failure (5) acute on chronic anemia, etiology unclear (6) Type 2 diabetes mellitus, A1c 5.8 Current Visit: Yes Status: Acute Code(s): E11.9 - TYPE 2 DIABETES MELLITUS WITHOUT COMPLICATIONS SNOMED Code(s): 772579028 (7) CAD, history of stenting (8) Hypertension Current Visit: No Status: Acute Code(s): I10 - ESSENTIAL (PRIMARY) HYPERTENSION SNOMED Code(s): 97651264 (8) morbid obesity, BMI 44.4 (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 coli Hospital course:This is an 86-year-old female well-known practice who presented to the emergency room was shortness of breath CHF patient has COPD without evidence of fever. Mild lower extremity edema recently underwent heart catheterization with multiple stent placement within the last year. No recent sick contacts no recent travel no evidence of damico virus 12/11/21Patient had been started on new antihypertensive regimen secondary to renal failure and coronary artery disease, dosing of paul was decreased, patient was started on beta dejan, patient never received hydralazine, became hypotensive and was transferred to the stepdown unit, blood pressure has sig nificantly improved, glomerular filtration rate decreased below 30, would recommend holding paul inhibitor at this time secondary to GFR 12/12/2021 Diuresing well on Lasix IV push, chest x-ray from 12/11/2021 reporting improvement, maintaining O2 sats in the 90s on 2 L nasal cannula. Bicarb 20. Maintained on diuretics and PAUL inhibitor discontinued as per nephrology. Renal function improving, creatinine decreased to 1.15. Potassium 5.3. Renal ultrasound pending. Consuming 50% with no nausea vomiting or diarrhea. Denies any abdominal pain. Blood sugars 150s to 160s. Denies chest pain, palpitations or increased shortness of breath. Eliquis on hold. Stool for occult blood. Close monitoring of CBC, renal function with repeat labs ordered for a.m.Diuretics as per nephrology. PAUL in hibitor discontinued. Aggressive pulmonary toileting with nebulized bronchodilators, Trelogy. Beta dejan increased as patient tachycardic during the night, as she was not wearing her oxygen. Systolic blood pressure is 100 to 130s. Maintaining O2 sats of 99% on 2 L nasal cannula which can be further titrated off. Denies chest pain, palpitations or shortness of breath. Creatinine down to 0.98. Afebrile, normal WBC. Hemoglobin 9.3. Patient will be discharged home today in stable condition with guarded prognosis, pending final DC recommendations/clearance per nephrology. The impression and plan of care has been dictated as directed. : I performed a history and examination of this patient, discussed the same with the dictator. I agree with the dictator's note ,documented as a scribe. Any additional findings or plans will be noted. Patient Condition at Discharge: Stable Plan - Discharge Summary Discharge Rx Participant: Yes New Discharge Prescriptions: New Furosemide [Lasix] 40 mg PO BID 7 Days #14 tablet Continue Nitroglycerin Sl Tabs [Nitrostat] 0.4 mg SUBLINGUAL Q5M PRN PRN Reason: Chest Pain Atorvastatin Calcium [Lipitor] 40 mg PO HS #1 tab Levothyroxine Sodium [Synthroid] 50 mcg PO DAILY Cyanocobalamin [Vitamin B-12 Injection] 1,000 mcg SQ Q30D Albuterol Nebulized [Ventolin Nebulized] 2.5 mg INHALATION RT-QID PRN PRN Reason: Shortness Of Breath Fluticasone/Umeclidin/Vilanter [Trelegy Ellipta 100-62.5-25] 1 puff INHALATION RT-HS Pioglitazone [Actos] 15 mg PO DAILY #30 tab Metoprolol Tartrate [Lopressor] 50 mg PO BID #0 Empagliflozin [Jardiance] 10 mg PO DAILY Apixaban [Eliquis] 2.5 mg PO BID Discontinued metFORMIN HCL [Glucophage] 1,000 mg PO BID Gabapentin [Neurontin] 800 mg PO HS Gabapentin [Neurontin] 400 mg PO BID@0800,1600 lisinopriL [Zestril] 10 mg PO BID HYDROcodone/APAP 5-325MG [[place] 5-325] 1 tab PO TID No Action metFORMIN HCL 1,000 mg PO BID Discharge Medication List Nitroglycerin Sl Tabs [Nitrostat] 0.4 mg SUBLINGUAL Q5M PRN 07/20/15 [History] Atorvastatin Calcium [Lipitor] 40 mg PO HS #1 tab 08/04/15 [Rx] Cyanocobalamin [Vitamin B-12 Injection] 1,000 mcg SQ Q30D 07/06/19 [History] Levothyroxine Sodium [Synthroid] 50 mcg PO DAILY 07/06/19 [History] Albuterol Nebulized [Ventolin Nebulized] 2.5 mg INHALATION RT-QID PRN 02/19/20 [History] Fluticasone/Umeclidin/Vilanter [Trelegy Ellipta 100-62.5-25] 1 puff INHALATION RT-HS 10/15/21 [History] Pioglitazone [Actos] 15 mg PO DAILY #30 tab 04/22/22 [Rx] Apixaban [Eliquis] 2.5 mg PO BID 12/09/21 [History] Empagliflozin [Jardiance] 10 mg PO DAILY 12/09/21 [History] Furosemide [Lasix] 40 mg PO BID 7 Days #14 tablet 12/13/21 [Rx] Metoprolol Tartrate [Lopressor] 50 mg PO BID #0 12/13/21 [Rx] metFORMIN HCL 1,000 mg PO BID 12/14/21 [History] Follow up Appointment(s)/Referral(s): [facility], [NON-STAFF] - Дмитрий Montoya MD [Primary Care Provider] - 1 Week (Office closed at time of discharge, ensure office is aware the appointment is following a hospital stay.) Ambulatory/Diagnostic Orders: Complete Blood Count w/diff [LAB.AMB] Time Frame: 3 Days, Location: [facility] Se lected Patient Instructions/Handouts: Heart Failure (DC), COPD (Chronic Obstructive Pulmonary Disease) (DC) Activity/Diet/Wound Care/Special Instructions: Renal function improving, continue to hold metformin, Paul inhibitor. O2 sat on RA after ambulating Discharge/Stand Alone Forms: Who Do I Call?, Help In The Home, Personal Grey Roll Worker Discharge Disposition: HOME WITH HOME HEALTH SERVICES
== END 2021-12-13 17:14 | disposition home health service (06) | DRG 291 ==
LOC: EC 20:59 → 4SSUR 23:33 → 3SCARD 12-11 10:41
PROVIDERS: ADMIT Family Medicine; ATTEND Family Medicine
DX: I13.0 Hypertensive heart and chronic kidney disease with heart failure and stage 1 through stage 4 chronic kidney disease, or unspecified chronic kidney disease (principal); I50.33 Acute on chronic diastolic (congestive) heart failure; J96.01 Acute respiratory failure with hypoxia; J44.1 Chronic obstructive pulmonary disease with (acute) exacerbation; N17.9 Acute kidney failure, unspecified; Z68.41 Body mass index [BMI] 40.0-44.9, adult; E03.9 Hypothyroidism, unspecified; E11.22 Type 2 diabetes mellitus with diabetic chronic kidney disease; E66.01 Morbid (severe) obesity due to excess calories; E78.5 Hyperlipidemia, unspecified; N18.9 Chronic kidney disease, unspecified; D50.9 Iron deficiency anemia, unspecified; I48.0 Paroxysmal atrial fibrillation; I95.2 Hypotension due to drugs; T50.1X5A Adverse effect of loop [high-ceiling] diuretics, initial encounter; T46.4X5A Adverse effect of angiotensin-converting-enzyme inhibitors, initial encounter; T44.7X5A Adverse effect of beta-adrenoreceptor antagonists, initial encounter; R53.81 Other malaise; R00.0 Tachycardia, unspecified; M54.2 Cervicalgia; G89.29 Other chronic pain; I25.10 Atherosclerotic heart disease of native coronary artery without angina pectoris; M19.90 Unspecified osteoarthritis, unspecified site; M54.42 Lumbago with sciatica, left side; M54.41 Lumbago with sciatica, right side; M81.0 Age-related osteoporosis without current pathological fracture; R01.1 Cardiac murmur, unspecified; Z87.891 Personal history of nicotine dependence; I25.2 Old myocardial infarction; Z98.1 Arthrodesis status; Z79.01 Long term (current) use of anticoagulants; Z79.84 Long term (current) use of oral hypoglycemic drugs; Z79.890 Hormone replacement therapy; Z79.899 Other long term (current) drug therapy; Z86.73 Personal history of transient ischemic attack (TIA), and cerebral infarction without residual deficits; Z87.440 Personal history of urinary (tract) infections; Z95.5 Presence of coronary angioplasty implant and graft; Z96.653 Presence of artificial knee joint, bilateral; Z98.890 Other specified postprocedural states; Z86.79 Personal history of other diseases of the circulatory system; Z79.51 Long term (current) use of inhaled steroids; Z71.3 Dietary counseling and surveillance; Z88.0 Allergy status to penicillin; Z99.3 Dependence on wheelchair; Z98.42 Cataract extraction status, left eye; Z98.41 Cataract extraction status, right eye; Z87.39 Personal history of other diseases of the musculoskeletal system and connective tissue; Z79.891 Long term (current) use of opiate analgesic; Z86.19 Personal history of other infectious and parasitic diseases; Z82.3 Family history of stroke; Z82.49 Family history of ischemic heart disease and other diseases of the circulatory system; Z82.41 Family history of sudden cardiac death
CPT/HCPCS: 36415; 71045; 71046; 76770; 80048; 80053; 81001; 83036; 83540; 83550; 83735; 83880; 84100; 84484; 85025; 85610; 85730; 93005; 94640; 94760; 96374; 96375; 99285

== ENCOUNTER 2021-12-14 14:06 | Emergency (ER) | payer MEDICARE ==
[2021-12-14 15:19] LABS: Basophils # (A) 0.1 k/uL (0-0.2); Basophils % (A) 1 %; Eosinophils # (A) 0.2 k/uL (0-0.7); Eosinophils % (A) 2 %; HCT 33.4 % (34.0-46.0); HGB 10.1 gm/dL (11.4-16.0); Hypochromasia Moderate; Lymphocytes # (A) 2.8 k/uL (1.0-4.8); Lymphocytes % (A) 28 %; MCH 26.9 pg (25.0-35.0); MCHC 30.3 g/dL (31.0-37.0); Mean Platelet Volume 7.8; Monocytes # (A) 0.8 k/uL (0-1.0); Monocytes % (A) 8 %; Neutrophils # (A) 5.9 k/uL (1.3-7.7); Neutrophils % (A) 59 %; Platelet Count 482 k/uL (150-450); RBC 3.77 m/uL (3.80-5.40); RDW 14.4 % (11.5-15.5)
[2021-12-14 15:23] LABS: Albumin 4.1 g/dL (3.5-5.0); Calcium 8.8 mg/dL (8.4-10.2); Potassium 4.7 mmol/L (3.5-5.1); Total Bilirubin 0.3 mg/dL (0.2-1.3); Total Protein 6.7 g/dL (6.3-8.2)
--- NOTE | 2021-12-14 15:31 | XR ---
EXAMINATION TYPE: XR chest 2V DATE OF EXAM: 12/14/2021 COMPARISON: Chest x-ray 12/11/2021 HISTORY: Shortness of breath, hypertension TECHNIQUE: Frontal and lateral views of the chest are obtained. FINDINGS: There is no focal air space opacity, pleural effusion, or pneumothorax seen. The cardiac silhouette size is stable accounting for differences in technique. The osseous structures are intac t, there is thoracic spondylosis, postop changes in the cervical spine. Arthropathy is noted at the a cromioclavicular joints, postop change noted to the left humeral head. Patient is rotated. Prominent lung volumes with flattening the hemidiaphragms may be indicative of underlying COPD. There are coron diogenes artery calcifications present. IMPRESSION: No acute cardiopulmonary process.
[2021-12-14 16:25] LABS: MCV 88.7 fL (80.0-100.0)
[2021-12-14] MEDS ORDERED: DEXAMETHASONE SOD PHOSPHATE 10 MG/ML 1 ML VIAL IV STA (16:33)
[2021-12-14] MEDS ORDERED: IPRATROPIUM-ALBUTEROL 3 ML NEB INHALATION STA (16:33)
--- NOTE | 2021-12-14 16:37 | ED ---
General Adult HPI - General Chief complaint: Shortness of Breath Stated complaint: Hypertension Time Seen by Provider: 12/14/21 16:16 Source: patient Mode of arrival: wheelchair Limitations: no limitations - History of Present Illness Initial comments: Dictation was produced using [employer] dictation software. please excuse any grammatical, word or spelling errors. Chief Complaint: 86-year-old female presents to the emergency department for several hours of dyspnea History of Present Illness: [id number] female she has past medical history of heart failure and COPD. For the last several hours she's been having shortness of breath. She started to feel winded earlier today. She woke up feeling normal. She was recently admitted and discharged from the hospital. Patient was hospitalized recently for shortness of breath which was deemed multifactorial secondary to COPD and CHF. Patient states she has a mild cough. Denies any sore throat or nose. According to documentation patient was admitted to the hospital for approximately 5 days. She is evaluated pulmonology. Patient has any fever or constitutional symptoms. She wasn't feeling well and her checked her blood pressure was found to be elevated. Patient does take multiple cardiac medications The ROS documented in this emergency department record has been reviewed and confirmed by me. Those systems with pertinent positive or negative responses have been documented in the HPI. All other systems are other negative and/or noncontributory. PHYSICAL EXAM: General Impression: Alert and oriented x3, not in acute distress HEENT: Normocephalic atraumatic, extra-ocular movements intact, pupils equal and reactive to light bilaterally, mucous membranes moist. Cardiovascular: Heart regular rate and rhythm Chest: Able to complete full sentences, no retractions, no tachypnea, mild diffuse lung wheezing Abdomen: abdomen soft, non-tender, non-distended, no organomegaly Musculoskeletal: Pulses present and equal in all extremities, no peripheral ed coral Motor: no focal deficits noted Neurological: CN II-XII grossly intact, no focal motor or sensory deficits noted Skin: Intact with no visualized rashes Psych: Normal affect and mood ED course: 86-year-old female presents emergency department for dyspnea. She has multiple cardio and pulmonary comorbidities. Patient's well-appearing at the bedside. Physical examination shows mild diffuse lung wheezing recently hospitalized for 5 days. Vital signs upon arrival are within acceptable limits. Patient does not appear to be visibly dyspneic. Laboratory evaluation obtained. CBC, coag panel, metabolic panel is unremarkable. For panel viral PCR is negative. Chest x-ray is nonacute. Myra nt observed in emergency department for approximately 5 hours. She is reevaluated bedside at 7:15 PM found to be in stable medical condition. Patient likely having a mild COPD exacerbation. Patient not dyspneic at bedside well- appearing. She is given steroids advised to follow-up with primary care doctor upon discharge. Patient is agreeable disposition. EKG interpretation: Ventricular rate 83, sinus rhythm,. Interval 149, QS 92, QTC 396. No MS prolongation, no QTC prolongation, no ST or T-wave changes noted. EKG compared to 12/09/2021 showing no changes. Overall, this EKG is unremarka ble - Related Data Home Medications Medication Instructions Recorded Confirmed Nitroglycerin Sl Tabs [Nitrostat] 0.4 mg SUBLINGUAL Q5M PRN 07/20/15 12/14/21 Cyanocobalamin [Vitamin B-12 1,000 mcg SQ Q30D 07/06/19 12/14/21 Injection] Levothyroxine Sodium [Synthroid] 50 mcg PO DAILY 07/06/19 12/14/21 Albuterol Nebulized [Ventolin 2.5 mg INHALATION RT-QID PRN 02/19/20 12/14/21 Nebulized] Fluticasone/Umeclidin/Vilanter 1 puff INHALATION RT-HS 10/15/21 12/14/21 [Trelegy Ellipta 100-62.5-25] Apixaban [Eliquis] 2.5 mg PO BID 12/09/21 12/14/21 Empagliflozin [Jardiance] 10 mg PO DAILY 12/09/21 12/14/21 metFORMIN HCL 1,000 mg PO BID 12/14/21 12/14/21 Previous Rx's Medication Instructions Recorded Atorvastatin Calcium [Lipitor] 40 mg PO HS #1 tab 08/04/15 Pioglitazone [Actos] 15 mg PO DAILY #30 tab 10/21/21 Furosemide [Lasix] 40 mg PO BID 7 Days #14 tablet 12/13/21 Metoprolol Tartrate [Lopressor] 50 mg PO BID #0 12/13/21 Allergies Allergy/AdvReac Type Severity Reaction Status Date / Time Penicillins Allergy Rash/Hives Verified 12/14/21 16:39 Review of Systems ROS Statement: Those systems with pertinent positive or pertinent negative responses have been documented in the HPI. ROS Other: All systems not noted in ROS Statement are negative. Past Medical History Past Medical History: Chest Pain / Angina, Heart Failure, COPD, CVA/TIA, Diabetes Mellitus, Hyperlipidemia, Hypertension, Osteoarthritis (OA), Thyroid Disorder Additional Past Medical History / Comment(s): Using a wheelchair or a walker, bilateral peripheral neuropathy in feet and hands, chronic low back pain, lower leg edema. Last Myocardial Infarction Date:: 06/17/18 History of Any Multi-Drug Resistant Organisms: ESBL Date of last positivie culture/infection: 09/06/17 MDRO Source:: ESBL URINE Past Surgical History: Back Surgery, Heart Catheterization, Heart Catheterization With Stent, Joint Replacement, Orthopedic Surgery Additional Past Surgical History / Comment(s): Lumbar laminectomy decompression fusion L3-4 and L5-S1 with cell saver, lumbar instrumentation removal L4-5, L4- L5 laminectomy, BILATERAL KNEE REPLACEMENTS, ORIF RIGHT ANKLE, CERVICAL FUSION, bilateral rotator cuff repair, bilateral wrist carpal tunnel releases, pain procedures, left breast lumpectomy-benign, bilateral varicose vein stripping, bilateral cataracts, heart cath with 5 stents august-2021 Past Anesthesia/Blood Transfusion Reactions: No Reported Reaction Additional Past Anesthesia/Blood Transfusion Reaction / Comment(s): Pt states she has never received blood. Date of Last Stent Placement:: 08/30/2021 Past Psychological History: No Psychological Hx Reported Smoking Status: Former smoker Past Alcohol Use History: None Reported Past Drug Use History: None Reported - Past Family History Father Family Medical History: Myocardial Infarction (NC) Additional Family Medical History / Comment(s): Father at 40 of a NC. Mother Family Medical History: CVA/TIA Additional Family Medical History / Comment(s): Mother had a CVA General Exam Limitations: no limitations Course Vital Signs 12/14/21 12/14/21 12/14/21 14:09 17:22 17:31 Temperature 99.3 F Pulse Rate 99 87 88 Respiratory 25 H Rate Blood Pressure 125/60 O2 Sat by Pulse 100 Oximetry Medical Decision Making - Lab Data Result diagrams: 12/14/21 15:00 12/14/21 15:00 Lab Results 12/14/21 12/14/21 12/14/21 Range/Units 15:00 15:00 15:00 WBC 10.0 (3.8-10.6) k/uL RBC 3.77 L (3.80-5.40) m/uL Hgb 10.1 L (11.4-16.0) gm/dL Hct 33.4 L (34.0-46.0) % MCV 88.7 (80.0-100.0) fL MCH 26.9 (25.0-35.0) pg MCHC 30.3 L (31.0-37.0) g/dL RDW 14.4 (11.5-15.5) % Plt Count 482 H (150-450) k/uL MPV 7.8 Neutrophils % 59 % Lymphocytes % 28 % Monocytes % 8 % Eosinophils % 2 % Basophils % 1 % Neutrophils # 5.9 (1.3-7.7) k/uL Lymphocytes # 2.8 (1.0-4.8) k/uL Monocytes # 0.8 (0-1.0) k/uL Eosinophils # 0.2 (0-0.7) k/uL Basophils # 0.1 (0-0.2) k/uL Hypochromasia Moderate APTT 24.3 (22.0-30.0) sec Sodium 131 L (137-145) mmol/L Potassium 4.7 (3.5-5.1) mmol/L Chloride 98 (98-107) mmol/L Carbon Dioxide 23 (22-30) mmol/L Anion Gap 10 mmol/L BUN 33 H (7-17) mg/dL Creatinine 1.23 H (0.52-1.04) mg/dL Est GFR (CKD-EPI)AfAm 47 (>60 ml/min/1.73 sqM) Est GFR (CKD-EPI)NonAf 41 (>60 ml/min/1.73 sqM) Glucose 125 H (74-99) mg/dL Calcium 8.8 (8.4-10.2) mg/dL Total Bilirubin 0.3 (0.2-1.3) mg/dL AST 24 (14-36) U/L ALT 15 (4-34) U/L Alkaline Phosphatase 93 (38-126) U/L Troponin I (0.000-0.034) ng/mL Total Protein 6.7 (6.3-8.2) g/dL Albumin 4.1 (3.5-5.0) g/dL Influenza Type A (PCR) (Not Detectd) Influenza Type B (PCR) (Not Detectd) RSV (PCR) (Not Detectd) SARS-CoV-2 (PCR) (Not Detectd) 12/14/21 12/14/21 Range/Units 15:00 17:40 WBC (3.8-10.6) k/uL RBC (3.80-5.40) m/uL Hgb (11.4-16.0) gm/dL Hct (34.0-46.0) % MCV (80.0-100.0) fL MCH (25.0-35.0) pg MCHC (31.0-37.0) g/dL RDW (11.5-15.5) % Plt Count (150-450) k/uL MPV Neutrophils % % Lymphocytes % % Monocytes % % Eosinophils % % Basophils % % Neutrophils # (1.3-7.7) k/uL Lymphocytes # (1.0-4.8) k/uL Monocytes # (0-1.0) k/uL Eosinophils # (0-0.7) k/uL Basophils # (0-0.2) k/uL Hypochromasia APTT (22.0-30.0) sec Sodium (137-145) mmol/L Potassium (3.5-5.1) mmol/L Chloride (98-107) mmol/L Carbon Dioxide (22-30) mmol/L Anion Gap mmol/L BUN (7-17) mg/dL Creatinine (0.52-1.04) mg/dL Est GFR (CKD-EPI)AfAm (>60 ml/min/1.73 sqM) Est GFR (CKD-EPI)NonAf (>60 ml/min/1.73 sqM) Glucose (74-99) mg/dL Calcium (8.4-10.2) mg/dL Total Bilirubin (0.2-1.3) mg/dL AST (14-36) U/L ALT (4-34) U/L Alkaline Phosphatase (38-126) U/L Troponin I <0.012 (0.000-0.034) ng/mL Total Protein (6.3-8.2) g/dL Albumin (3.5-5.0) g/dL Influenza Type A (PCR) Not Detected (Not Detectd) Influenza Type B (PCR) Not Detected (Not Detectd) RSV (PCR) Not Detected (Not Detectd) SARS-CoV-2 (PCR) Not Detected (Not Detectd) Disposition Clinical Impression: COPD exacerbation Disposition: HOME SELF-CARE Condition: Good Instructions (If sedation given, give patient instructions): COPD (Chronic Obstructive Pulmonary Disease) (ED) Is patient prescribed a controlled substance at d/c from ED?: No Referrals: Дмитрий Montoya MD [Primary Care Provider] - 1-2 days Time of Disposition: 19:15
[2021-12-14 22:27] VITALS: BP 139/48; PULSE 78; RESP 16; TEMP 98.2
== END 2021-12-14 20:00 | disposition home or self-care (01) ==
LOC: EC 14:06
DX: J44.1 Chronic obstructive pulmonary disease with (acute) exacerbation (principal); Z86.73 Personal history of transient ischemic attack (TIA), and cerebral infarction without residual deficits; E11.9 Type 2 diabetes mellitus without complications; E78.5 Hyperlipidemia, unspecified; E07.9 Disorder of thyroid, unspecified; Z79.899 Other long term (current) drug therapy; Z87.891 Personal history of nicotine dependence; Z20.822 Contact with and (suspected) exposure to COVID-19; Z88.0 Allergy status to penicillin
CPT/HCPCS: 36415; 94640; 80053; 84484; 85025; 85730; 87636; 71046; 99285; 96372; J1100

== ENCOUNTER 2022-03-07 10:24 | Emergency (ER) | payer MEDICARE ==
[2022-03-07 10:54] VITALS: BP 129/45; PULSE 62; RESP 20; TEMP 98.1
[2022-03-07 19:11] LABS: Glucose,Whole Blood 97 mg/dL (70-110)
--- NOTE | 2022-03-08 17:16 | XR ---
EXAM: XR Chest, 2 Views CLINICAL HISTORY: ITS. REASON XR Reason: SOB TECHNIQUE: Frontal and lateral views of the chest. COMPARISON: No relevant prior studies available. FINDINGS: Lungs: Mild basilar atelectasis. No consolidation. Pleural space: Trace right pleural effusion. No pneumothorax. Heart: Unremarkable. No cardiomegaly. Mediastinum: Calcified aorta. Bones/joints: Lumbar levocurvature. Degeneration of the spine and shoulders. Left humeral head suture anchor. IMPRESSION: Trace right pleural effusion. Mild basilar atelectasis. No clear consolidation
== END 2022-03-08 03:09 | disposition left against medical advice (07) ==
LOC: EC 10:24
DX: Z53.21 Procedure and treatment not carried out due to patient leaving prior to being seen by health care provider (principal)
CPT/HCPCS: 36415; 71046; 99499

== ENCOUNTER 2022-03-13 12:34 | Inpatient (IN) | payer MEDICARE ==
[2022-03-13] MEDS ORDERED: methylPREDNISolone SOD SUCCI 125 MG/2 ML VIAL IV STA (12:47)
[2022-03-13] MEDS ORDERED: IPRATROPIUM 0.5 MG/2.5 ML NEBU INHALATION STA (12:47)
[2022-03-13] MEDS ORDERED: ALBUTEROL NEBULIZED 2.5 MG/3 ML INHALATION STA (12:47)
[2022-03-13 13:37] LABS: Anisocytosis Slight; Basophils % (A) 1 %; Eosinophils # (A) 0.1 k/uL (0-0.7); Eosinophils % (A) 2 %; HCT 28.9 % (34.0-46.0); HGB 8.8 gm/dL (11.4-16.0); Hypochromasia Marked; Lymphocytes # (A) 1.4 k/uL (1.0-4.8); Lymphocytes % (A) 23 %; MCH 25.4 pg (25.0-35.0); MCHC 30.6 g/dL (31.0-37.0); Mean Platelet Volume 7.4; Monocytes # (A) 0.6 k/uL (0-1.0); Monocytes % (A) 10 %; Neutrophils # (A) 3.9 k/uL (1.3-7.7); Neutrophils % (A) 63 %; Platelet Count 315 k/uL (150-450); RBC 3.48 m/uL (3.80-5.40); RDW 16.3 % (11.5-15.5); WBC 6.1 k/uL (3.8-10.6)
--- NOTE | 2022-03-13 13:48 | ED ---
General Adult HPI - General Chief complaint: Shortness of Breath Stated complaint: SOB Time Seen by Provider: 03/13/22 12:45 Source: patient, family, EMS, RN notes reviewed, old records reviewed Mode of arrival: EMS Limitations: no limitations - History of Present Illness Initial comments: This is a 6-year-old female presents emergency department with past medical history significant for COPD and congestive heart today. Patient states over the last few days she's having difficulty breathing which is getting aggressively worse. Patient denies chest pain patient denies any palpitations. Patient denies fever chills or cough. Patient states he has had more swelling in her legs recently. Patient denies any abdominal pain patient denies nausea vomiting diarrhea. Patient denies any recent injury or trauma. Patient denies lightheadedness or dizziness. Patient denies headache patient denies numbness weakness - Related Data Home Medications Medication Instructions Recorded Confirmed Nitroglycerin Sl Tabs [Nitrostat] 0.4 mg SL Q5M PRN 07/20/15 03/13/22 Cyanocobalamin [Vitamin B-12 1,000 mcg SQ Q30D 07/06/19 03/13/22 Injection] Levothyroxine Sodium [Synthroid] 50 mcg PO AC-BRKFST 07/06/19 03/13/22 Albuterol Nebulized [Ventolin 2.5 mg INHALATION RT-QID PRN 02/19/20 03/13/22 Nebulized] Fluticasone/Umeclidin/Vilanter 1 puff INHALATION RT-HS 10/15/21 03/13/22 [Trelegy Ellipta 100-62.5-25] Apixaban [Eliquis] 2.5 mg PO BID 12/09/21 03/13/22 Empagliflozin [Jardiance] 10 mg PO DAILY 12/09/21 03/13/22 Amitriptyline HCl [Elavil] 100 mg PO HS 03/13/22 03/13/22 Cyanocobalamin (Vitamin B-12) 1,000 mcg PO DAILY 03/13/22 03/13/22 [Vitamin B-12] Furosemide [Lasix] 40 mg PO DAILY 03/13/22 03/13/22 Gabapentin 300 mg PO TID 03/13/22 03/13/22 Gloria Root 550mg 1 tab PO DAILY 03/13/22 03/13/22 HYDROcodone/APAP 5-325MG [[place] 1 tab PO TID 03/13/22 03/13/22 5-325] Pioglitazone [Actos] 30 mg PO DAILY 03/13/22 03/13/22 lisinopriL [Zestril] 10 mg PO BID 03/13/22 03/13/22 metFORMIN HCL 1,000 mg PO BID@1800,2100 03/13/22 03/13/22 Previous Rx's Medication Instructions Recorded Atorvastatin Calcium [Lipitor] 40 mg PO HS #1 tab 08/04/15 Metoprolol Tartrate [Lopressor] 50 mg PO BID #0 12/13/21 Allergies Allergy/AdvReac Type Severity Reaction Status Date / Time Penicillins Allergy Rash/Hives Verified 03/13/22 14:59 Review of Systems ROS Statement: Those systems with pertinent positive or pertinent negative responses have been documented in the HPI. ROS Other: All systems not noted in ROS Statement are negative. Past Medical History Past Medical History: Chest Pain / Angina, Heart Failure, COPD, CVA/TIA, Diabetes Mellitus, Hyperlipidemia, Hypertension, Osteoarthritis (OA), Thyroid Disorder Additional Past Medical History / Comment(s): Using a wheelchair or a walker, bilateral peripheral neuropathy in feet and hands, chronic low back pain, lower leg edema. Last Myocardial Infarction Date:: 06/17/18 History of Any Multi-Drug Resistant Organisms: ESBL Date of last positivie culture/infection: 09/06/17 MDRO Source:: ESBL URINE Past Surgical History: Back Surgery, Heart Catheterization, Heart Catheterization With Stent, Joint Replacement, Orthopedic Surgery Additional Past Surgical History / Comment(s): Lumbar laminectomy decompression fusion L3-4 and L5-S1 with cell saver, lumbar instrumentation removal L4-5, L4- L5 laminectomy, BILATERAL KNEE REPLACEMENTS, ORIF RIGHT ANKLE, CERVICAL FUSION, bilateral rotator cuff repair, bilateral wrist carpal tunnel releases, pain procedures, left breast lumpectomy-benign, bilateral varicose vein stripping, bilateral cataracts, heart cath with 5 stents august-2021 Past Anesthesia/Blood Transfusion Reactions: No Reported Reaction Additional Past Anesthesia/Blood Transfusion Reaction / Comment(s): Pt states she has never received blood. Date of Last Stent Placement:: 08/30/2021 Past Psychological History: No Psychological Hx Reported Smoking Status: Former smoker Past Alcohol Use History: None Reported Past Drug Use History: None Reported - Past Family History Father Family Medical History: Myocardial Infarction ([place]) Additional Family Medical History / Comment(s): Father at 40 of a [place]. Mother Family Medical History: CVA/TIA Additional Family Medical History / Comment(s): Mother had a CVA General Exam - General Exam Comments Initial Comments: GENERAL: Patient is well-developed and well-nourished. Patient is nontoxic and well- hydrated and is in mild distress. ENT: Neck is soft and supple. No significant lymphadenopathy is noted. Oropharynx is clear. Moist mucous membranes. Neck has full range of motion without eliciting any pain. EYES: The sclera were anicteric and conjunctiva were pink and moist. Extraocular movements were intact and pupils were equal round and reactive to light. Eyelids were unremarkable. PULMONARY: Patient has expiratory wheezes CARDIOVASCULAR: There is a regular rate and rhythm without any murmurs gallops or rubs. ABDOMEN: Soft and nontender with normal bowel sounds. SKIN: Skin is clear with no lesions or rashes and otherwise unremarkable. NEUROLOGIC: Patient is alert and oriented x3. Cranial nerves II through XII are grossly intact. Motor and sensory are also intact. Normal speech, volume and content. Symmetrical smile. MUSCULOSKELETAL: Normal extremities with adequate strength and full range of motion. LYMPHATICS: No significant lymphadenopathy is noted PSYCHIATRIC: Normal psychiatric evaluation. Limitations: no limitations Course Vital Signs 03/13/22 03/13/22 03/13/22 12:36 13:33 13:48 Temperature 97.2 F L Pulse Rate 83 80 82 Respiratory 22 Rate Blood Pressure 167/46 O2 Sat by Pulse 100 Oximetry Medical Decision Making - Medical Decision Making EKG shows sinus rhythm with occasional PAC at a rate of 79 bpm HI interval is 173 QRS is 82 QT interval 356 QTC is 391. Patient's EKG shows no ST segment elevation or depression Chest x-ray shows pulmonary edema. Patient got Lasix and nitroglycerin. I spoke with Dr. gibson he agreed to admit the patient admitted the patient I wrote admitting orders. - Lab Data Result diagrams: 03/13/22 13:16 03/13/22 13:16 Lab Results 03/13/22 03/13/22 03/13/22 Range/Units 13:16 13:16 13:16 WBC 6.1 (3.8-10.6) k/uL RBC 3.48 L (3.80-5.40) m/uL Hgb 8.8 L (11.4-16.0) gm/dL Hct 28.9 L (34.0-46.0) % MCV 83.0 (80.0-100.0) fL MCH 25.4 (25.0-35.0) pg MCHC 30.6 L (31.0-37.0) g/dL RDW 16.3 H (11.5-15.5) % Plt Count 315 (150-450) k/uL MPV 7.4 Neutrophils % 63 % Lymphocytes % 23 % Monocytes % 10 % Eosinophils % 2 % Basophils % 1 % Neutrophils # 3.9 (1.3-7.7) k/uL Lymphocytes # 1.4 (1.0-4.8) k/uL Monocytes # 0.6 (0-1.0) k/uL Eosinophils # 0.1 (0-0.7) k/uL Basophils # 0.0 (0-0.2) k/uL Hypochromasia Marked Anisocytosis Slight PT (9.0-12.0) sec INR (<1.2) APTT (22.0-30.0) sec Sodium 136 L (137-145) mmol/L Potassium 5.1 (3.5-5.1) mmol/L Chloride 98 (98-107) mmol/L Carbon Dioxide 25 (22-30) mmol/L Anion Gap 13 mmol/L BUN 34 H (7-17) mg/dL Creatinine 1.42 H (0.52-1.04) mg/dL Est GFR (CKD-EPI)AfAm 39 (>60 ml/min/1.73 sqM) Est GFR (CKD-EPI)NonAf 34 (>60 ml/min/1.73 sqM) Glucose 121 H (74-99) mg/dL Plasma Lactic Acid Russel (0.7-2.0) mmol/L Calcium 8.7 (8.4-10.2) mg/dL Magnesium 2.9 H (1.6-2.3) mg/dL Total Bilirubin 0.3 (0.2-1.3) mg/dL AST 22 (14-36) U/L ALT 13 (4-34) U/L Alkaline Phosphatase 86 (38-126) U/L Troponin I <0.012 (0.000-0.034) ng/mL NT-Pro-B Natriuret Pep pg/mL Total Protein 6.7 (6.3-8.2) g/dL Albumin 4.3 (3.5-5.0) g/dL 03/13/22 03/13/22 03/13/22 Range/Units 13:16 13:21 13:58 WBC (3.8-10.6) k/uL RBC (3.80-5.40) m/uL Hgb (11.4-16.0) gm/dL Hct (34.0-46.0) % MCV (80.0-100.0) fL MCH (25.0-35.0) pg MCHC (31.0-37.0) g/dL RDW (11.5-15.5) % Plt Count (150-450) k/uL MPV Neutrophils % % Lymphocytes % % Monocytes % % Eosinophils % % Basophils % % Neutrophils # (1.3-7.7) k/uL Lymphocytes # (1.0-4.8) k/uL Monocytes # (0-1.0) k/uL Eosinophils # (0-0.7) k/uL Basophils # (0-0.2) k/uL Hypochromasia Anisocytosis PT 10.2 (9.0-12.0) sec INR 0.9 (<1.2) APTT 22.2 (22.0-30.0) sec Sodium (137-145) mmol/L Potassium (3.5-5.1) mmol/L Chloride (98-107) mmol/L Carbon Dioxide (22-30) mmol/L Anion Gap mmol/L BUN (7-17) mg/dL Creatinine (0.52-1.04) mg/dL Est GFR (CKD-EPI)AfAm (>60 ml/min/1.73 sqM) Est GFR (CKD-EPI)NonAf (>60 ml/min/1.73 sqM) Glucose (74-99) mg/dL Plasma Lactic Acid Russel 1.1 (0.7-2.0) mmol/L Calcium (8.4-10.2) mg/dL Magnesium (1.6-2.3) mg/dL Total Bilirubin (0.2-1.3) mg/dL AST (14-36) U/L ALT (4-34) U/L Alkaline Phosphatase (38-126) U/L Troponin I (0.000-0.034) ng/mL NT-Pro-B Natriuret Pep 2420 pg/mL Total Protein (6.3-8.2) g/dL Albumin (3.5-5.0) g/dL Disposition Clinical Impression: Acute pulmonary edema, COPD exacerbation Disposition: ADMITTED IP TO THIS HOSP Referrals: Дмитрий Gibson MD [Primary Care Provider] - 1-2 days Time of Disposition: 15:10
[2022-03-13 13:50] LABS: Albumin 4.3 g/dL (3.5-5.0); Calcium 8.7 mg/dL (8.4-10.2); Magnesium 2.9 mg/dL (1.6-2.3); Potassium 5.1 mmol/L (3.5-5.1); Total Bilirubin 0.3 mg/dL (0.2-1.3); Total Protein 6.7 g/dL (6.3-8.2)
[2022-03-13 14:15] LABS: INR 0.9 (<1.2); Partial Thromboplastin Time 22.2 sec (22.0-30.0); Prothrombin Time 10.2 sec (9.0-12.0)
--- NOTE | 2022-03-13 14:57 | XR ---
EXAMINATION TYPE: XR chest 2V DATE OF EXAM: 03/13/2022 2:49 PM COMPARISON: Chest radiographs from 03/07/2022 TECHNIQUE: XR chest 2V Frontal and lateral views of the chest. CLINICAL INDICATION:Female, 86 years old with history of difficulty breathing; FINDINGS: Lungs/Pleura: Blunting of both costophrenic angles. Bibasilar patchy airspace disease. Pulmonary vascularity: Pulmonary vascular congestion. Heart/mediastinum: Cardiomediastinal silhouette is enlarged and stable. Atherosclerotic calcificatio ns are seen in the aorta. Musculoskeletal: Multiple level degenerative disc disease changes seen throughout the spine. Partial visualization of cervical fusion hardware. Bilateral shoulder arthropathy with left humeral head orth opedic anchors. IMPRESSION: Cardiomegaly, pulmonary vascular congestion and bilateral pleural effusions. Correlate with BNP for c ongestive heart failure. Superimposed infectious process is not excluded.
[2022-03-13] MEDS ORDERED: FUROSEMIDE 10 MG/ML 10 ML VIAL IV STA (15:08)
[2022-03-13] MEDS ORDERED: NITROGLYCERIN OINT 1 INCH/GM PACKET TOPICAL STA (15:08)
[2022-03-13] MEDS ORDERED: NALOXONE 0.4 MG/ML 1 ML VIAL IVP PRN (15:11)
[2022-03-13] MEDS: IPRATROPIUM-ALBUTEROL 3 ML NEB INHALATION SCH ×2 (15:12→19:32)
[2022-03-13 17:16] LABS: Glucose,Whole Blood 139 mg/dL (70-110)
[2022-03-13] MEDS: NITROGLYCERIN OINT 1 INCH/GM PACKET TOPICAL SCH (19:21)
[2022-03-13] MEDS: methylPREDNISolone SOD SUCCI 125 MG/2 ML VIAL IV SCH (19:21)
[2022-03-13 23:35] LABS: Glucose,Whole Blood 172 mg/dL (70-110)
[2022-03-14] MEDS: FUROSEMIDE 10 MG/ML 4 ML VIAL IV SCH ×4 (00:20→23:45)
[2022-03-14] MEDS: methylPREDNISolone SOD SUCCI 125 MG/2 ML VIAL IV SCH ×5 (00:20→23:45)
[2022-03-14] MEDS: NITROGLYCERIN OINT 1 INCH/GM PACKET TOPICAL SCH ×5 (00:20→23:45)
[2022-03-14 07:23] LABS: Glucose,Whole Blood 146 mg/dL (70-110)
[2022-03-14] MEDS: IPRATROPIUM-ALBUTEROL 3 ML NEB INHALATION SCH ×4 (08:12→19:12)
[2022-03-14] MEDS ORDERED: DEXTROSE 50% SYRINGE 50 ML IVP PRN ×2 (09:10)
[2022-03-14 11:09] LABS: Glucose,Whole Blood 171 mg/dL (70-110)
[2022-03-14] MEDS ORDERED: IPRATROPIUM-ALBUTEROL 3 ML NEB INHALATION PRN (11:45)
--- NOTE | 2022-03-14 12:32 | P.CNPUL ---
History of Present Illness Consult date: 03/14/22 Requesting physician: Phan Hartman Jr Reason for consult: dyspnea, COPD, abnormal CXR/CT Chief complaint: Shortness of breath, cough, congestion History of present illness: This is a very pleasant 86-year-old morbidly obese female patient, quite debilitated in a wheelchair, known to have COPD/asthma maintained Trelegy and albuterol in the outpatient setting, former smoker, CHF with diastolic failure, coronary artery disease with previous multi coronary artery stenting and diabetes mellitus. The patient has been fully vaccinated for COVID 19. She had been admitted for CHF/COPD exacerbations from December 09 through 12/13/2021. The patient comes in to the hospital because of worsening shortness of breath. She has also some increase in lower extremity edema. She has exertional dyspnea. Minimal cough. No significant sputum production. No fever or chills. No nausea vomiting or emesis. No altered mentation. Chest x-ray reveals cardiomegaly, pulmonary vascular congestion and bilateral pleural effusions. White count 6.1. Hemoglobin 8.8. Sodium 136. Potassium 5.1. BUN 34. Cr eatinine 1.42. Glucose 172. Troponin negative times one. ProBNP 2420. She's been initiated and DuoNeb inhalations, Symbicort, IV site Medrol, IV diuretics. She is seen today in consultation on the regular medical floor. She is resting comfortably in bed. Awake and alert in no acute distress. Maintaining O2 saturations in the 90s on 2 L/m per nasal cannula. She's afebrile. Hemodynamically stable. Making adequate urine output. Review of Systems REVIEW OF SYSTEMS: CONSTITUTIONAL: Denies any recent significant weight loss or weight gain. EYES: Denies change in vision. EARS, NOSE, MOUTH, THROAT: Denies headaches, denies sore throat. CARDIOVASCULAR: Denies chest pain, palpitations or syncopal episodes. RESPIRATORY: Positive for shortness of breath, cough, congestion no hemoptysis. GASTROINTESTINAL: Denies change in appetite, denies abdominal pain GENITOURINARY: Denies hematuria, denies infections. MUSKULOSKELETAL: Positive for lower extremity edema. INTEGUMENTARY: Denies rash, denies eczema. NEUROLOGICAL: Denies recent memory loss, no recent seizure activity. PSYCHIATRIC: Denies anxiety, denies depression. HEMATOLOGIC/LYMPHATIC: Denies anemia, denies enlarged lymph nodes. Past Medical History Past Medical History: Chest Pain / Angina, Heart Failure, COPD, CVA/TIA, Diabetes Mellitus, Hyperlipidemia, Hypertension, Osteoarthritis (OA), Thyroid Disorder Additional Past Medical History / Comment(s): Using a wheelchair or a walker, bilateral peripheral neuropathy in feet and hands, chronic low back pain, lower leg edema. Last Myocardial Infarction Date:: 06/17/18 History of Any Multi-Drug Resistant Organisms: ESBL Date of last positivie culture/infection: 09/06/17 MDRO Source:: ESBL URINE Past Surgical History: Back Surgery, Heart Catheterization, Heart Catheterization With Stent, Joint Replacement, Orthopedic Surgery Additional Past Surgical History / Comment(s): Lumbar laminectomy decompression fusion L3-4 and L5-S1 with cell saver, lumbar instrumentation removal L4-5, L4- L5 laminectomy, BILATERAL KNEE REPLACEMENTS, ORIF RIGHT ANKLE, CERVICAL FUSION, bilateral rotator cuff repair, bilateral wrist carpal tunnel releases, pain procedures, left breast lumpectomy-benign, bilateral varicose vein stripping, bilateral cataracts, heart cath with 5 stents august-2021 Past Anesthesia/Blood Transfusion Reactions: No Reported Reaction Additional Past Anesthesia/Blood Transfusion Reaction / Comment(s): Pt states she has never received blood. Date of Last Stent Placement:: 08/30/2021 Past Psychological History: No Psychological Hx Reported Smoking Status: Former smoker Past Alcohol Use History: None Reported Additional Past Alcohol Use History / Comment(s): Pt started smoking in 1955 and quit in 1974. She was a 1.5 ppd smoker. Past Drug Use History: None Reported - Past Family History Father Family Medical History: Myocardial Infarction ([place]) Additional Family Medical History / Comment(s): Father at 40 of a [place]. Mother Family Medical History: CVA/TIA Additional Family Medical History / Comment(s): Mother had a CVA Medications and Allergies Home Medications Medication Instructions Recorded Confirmed Type Nitroglycerin Sl Tabs [Nitrostat] 0.4 mg SL Q5M PRN 07/20/15 03/13/22 History Atorvastatin Calcium [Lipitor] 40 mg PO HS #1 tab 08/04/15 03/13/22 Rx Cyanocobalamin [Vitamin B-12 1,000 mcg SQ Q30D 07/06/19 03/13/22 History Injection] Levothyroxine Sodium [Synthroid] 50 mcg PO AC-BRKFST 07/06/19 03/13/22 History Albuterol Nebulized [Ventolin 2.5 mg INHALATION RT-QID PRN 02/19/20 03/13/22 History Nebulized] Fluticasone/Umeclidin/Vilanter 1 puff INHALATION RT-HS 10/15/21 03/13/22 History [Trelegy Ellipta 100-62.5-25] Apixaban [Eliquis] 2.5 mg PO BID 12/09/21 03/13/22 History Empagliflozin [Jardiance] 10 mg PO DAILY 12/09/21 03/13/22 History Metoprolol Tartrate [Lopressor] 50 mg PO BID #0 12/13/21 03/13/22 Rx Amitriptyline HCl [Elavil] 100 mg PO HS 03/13/22 03/13/22 History Cyanocobalamin (Vitamin B-12) 1,000 mcg PO DAILY 03/13/22 03/13/22 History [Vitamin B-12] Furosemide [Lasix] 40 mg PO DAILY 03/13/22 03/13/22 History Gabapentin 300 mg PO TID 03/13/22 03/13/22 History Gloria Root 550mg 1 tab PO DAILY 03/13/22 03/13/22 History HYDROcodone/APAP 5-325MG [[place] 1 tab PO TID 03/13/22 03/13/22 History 5-325] Pioglitazone [Actos] 30 mg PO DAILY 03/13/22 03/13/22 History lisinopriL [Zestril] 10 mg PO BID 03/13/22 03/13/22 History metFORMIN HCL 1,000 mg PO BID@1800,2100 03/13/22 03/13/22 History Allergies Allergy/AdvReac Type Severity Reaction Status Date / Time Penicillins Allergy Rash/Hives Verified 03/13/22 14:59 Physical Exam Vitals: Vital Signs Temp Pulse Pulse Resp BP BP Pulse Ox 03/14/22 11:43 84 03/14/22 11:31 80 03/14/22 08:25 92 03/14/22 08:12 92 03/14/22 08:08 97.6 F 88 17 114/53 97 03/14/22 07:51 97.6 F 88 17 114/53 97 03/14/22 03:30 96 20 03/14/22 02:15 97.8 F 102 H 30 H 119/75 98 03/13/22 21:00 96 21 135/53 99 03/13/22 20:00 88 20 140/86 97 03/13/22 19:51 98 03/13/22 19:33 97 03/13/22 16:58 86 18 147/76 99 03/13/22 15:00 79 18 155/51 99 03/13/22 14:30 82 24 176/62 99 03/13/22 14:00 80 9 L 164/63 100 03/13/22 13:48 82 03/13/22 13:33 80 03/13/22 13:30 89 26 H 164/63 03/13/22 13:00 84 18 154/69 100 03/13/22 12:41 138/98 100 03/13/22 12:36 97.2 F L 83 22 167/46 100 Intake and Output 03/13/22 03/14/22 03/14/22 22:59 06:59 14:59 Output Total 1200 Balance -1200 Output: Urine 1200 Other: Weight 111.5 kg GENERAL EXAM: Alert, pleasant 86-year-old female, morbidly obese, on 2 L nasal cannula, comfortable in no apparent distress. HEAD: Normocephalic. EYES: Normal reaction of pupils, equal size. NOSE: Clear with pink turbinates. THROAT: No erythema or exudates. NECK: No masses, no JVD. CHEST: No chest wall deformity. LUNGS: Equal air entry with faint crackles in the posterior bases. CVS: S1 and S2 normal with no audible murmur, regular rhythm. ABDOMEN: No hepatosplenomegaly, normal bowel sounds, no guarding or rigidity. SPINE: No scoliosis or deformity SKIN: No rashes CENTRAL NERVOUS SYSTEM: No focal deficits, tone is normal in all 4 extremities. EXTREMITIES: There is 1+ peripheral edema. No clubbing, no cyanosis. Peripheral pulses are intact. Results - Laboratory Findings CBC and BMP: 03/13/22 13:16 03/13/22 13:16 PT/INR, D-dimer PT 10.2 sec (9.0-12.0) 03/13/22 13:58 INR 0.9 (<1.2) 03/13/22 13:58 Abnormal lab findings: Abnormal Labs 03/13/22 03/13/22 03/13/22 13:16 13:16 17:14 RBC 3.48 L Hgb 8.8 L Hct 28.9 L MCHC 30.6 L RDW 16.3 H Sodium 136 L BUN 34 H Creatinine 1.42 H Glucose 121 H POC Glucose (mg/dL) 139 H Magnesium 2.9 H 03/13/22 03/14/22 03/14/22 23:34 07:12 11:08 RBC Hgb Hct MCHC RDW Sodium BUN Creatinine Glucose POC Glucose (mg/dL) 172 H 146 H 171 H Magnesium - Diagnostic Findings Chest x-ray: image reviewed Assessment and Plan Assessment: Acute hypoxemic respiratory failure secondary to an acute exacerbation of diastolic congestive heart failure Acute on chronic anemia Acute renal failure History of chronic obstructive pulmonary disease secondary to a remote history of chronic tobacco dependence. Currently on Trelegy and albuterol in the outpatient setting. Previous history of urinary tract infection secondary to Klebsiella pneumoniae and E. coli. Morbid obesity. BMI 43.5 kg per metered squared Diabetes mellitus, type II CAD and previous stenting Hyperlipidemia. Osteoarthritis. History of hypertension. Chronic back pain with previous laminectomy and decompression involving the lumbosacral spine. Chronic neck pain. Plan: The patient was seen and evaluated Chest x-ray, labs and medications reviewed Mainly a picture of diastolic congestive heart failure Continue with IV diuretics Check a pro-calcitonin Continue with bronchodilators Titrate the FiO2 as tolerated We will continue to follow and make further recommendations based on her clinical status I have personally seen and examined the patient, performed the documentation and the assessment and plan as written. Number of minutes spent on the visit: 20.
--- NOTE | 2022-03-14 12:35 | P.NPCON ---
History of Present Illness - Reason for Consult acute renal failure - History of Present Illness Reason for consultation: Acute kidney injury History of present illness: Patient is a 86-year-old female seen in renal consultation for acute kidney injury. Patient's creatinine as of 12/13/2021 was 0.98. It was 1.4 to this admission. No labs today. Patient presented to the hospital with worsening shortness of breath over the last few days. Chest x-ray suggestive of pulmonary vascular congestion and pleural effusions. Patient states she was taking Lasix 40 mg daily at home. She is currently on IV Lasix 40 mg 3 times daily. She denies use of nonsteroidals. She does have history of diabetes. Patient also has coronary disease with multiple stents. She denies chest pain. No hematuria or dysuria. Good urine output. Patient denies eating excessive salty foods but does admit to drinking quite a bit of fluids. Blood pressure stable. Oral intake has been fair. No vomiting or diarrhea. Currently on 2 L nasal cannula. Daughter present at bedside. Vital signs are stable. General: The patient appeared well nourished and normally developed. HEENT: Head exam is unremarkable. On nasal cannula. LUNGS: Breath sounds decreased. HEART: Rate and Rhythm are regular. ABDOMEN: Soft, no distention. EXTREMITITES: 2+ edema. Past Medical History Past Medical History: Chest Pain / Angina, Heart Failure, COPD, CVA/TIA, Diabetes Mellitus, Hyperlipidemia, Hypertension, Osteoarthritis (OA), Thyroid Disorder Additional Past Medical History / Comment(s): Using a wheelchair or a walker, bilateral peripheral neuropathy in feet and hands, chronic low back pain, lower leg edema. Last Myocardial Infarction Date:: 06/17/18 History of Any Multi-Drug Resistant Organisms: ESBL Date of last positivie culture/infection: 09/06/17 MDRO Source:: ESBL URINE Past Surgical History: Back Surgery, Heart Catheterization, Heart Catheterization With Stent, Joint Replacement, Orthopedic Surgery Additional Past Surgical History / Comment(s): Lumbar laminectomy decompression fusion L3-4 and L5-S1 with cell saver, lumbar instrumentation removal L4-5, L4- L5 laminectomy, BILATERAL KNEE REPLACEMENTS, ORIF RIGHT ANKLE, CERVICAL FUSION, bilateral rotator cuff repair, bilateral wrist carpal tunnel releases, pain procedures, left breast lumpectomy-benign, bilateral varicose vein stripping, bilateral cataracts, heart cath with 5 stents august-2021 Past Anesthesia/Blood Transfusion Reactions: No Reported Reaction Additional Past Anesthesia/Blood Transfusion Reaction / Comment(s): Pt states she has never received blood. Date of Last Stent Placement:: 08/30/2021 Past Psychological History: No Psychological Hx Reported Smoking Status: Former smoker Past Alcohol Use History: None Reported Additional Past Alcohol Use History / Comment(s): Pt started smoking in 7 and quit in 1974. She was a 1.5 ppd smoker. Past Drug Use History: None Reported - Past Family History Father Family Medical History: Myocardial Infarction (CT) Additional Family Medical History / Comment(s): Father at [address] Mother Family Medical History: CVA/TIA Additional Family Medical History / Comment(s): Mother had a CVA Medications and Allergies Home Medications Medication Instructions Recorded Confirmed Type Nitroglycerin Sl Tabs [Nitrostat] 0.4 mg SL Q5M PRN 07/20/15 03/13/22 History Atorvastatin Calcium [Lipitor] 40 mg PO HS #1 tab 08/04/15 03/13/22 Rx Cyanocobalamin [Vitamin B-12 1,000 mcg SQ Q30D 07/06/19 03/13/22 History Injection] Levothyroxine Sodium [Synthroid] 50 mcg PO AC-BRKFST 07/06/19 03/13/22 History Albuterol Nebulized [Ventolin 2.5 mg INHALATION RT-QID PRN 02/19/20 03/13/22 History Nebulized] Fluticasone/Umeclidin/Vilanter 1 puff INHALATION RT-HS 10/15/21 03/13/22 History [Trelegy Ellipta 100-62.5-25] Apixaban [Eliquis] 2.5 mg PO BID 12/09/21 03/13/22 History Empagliflozin [Jardiance] 10 mg PO DAILY 12/09/21 03/13/22 History Metoprolol Tartrate [Lopressor] 50 mg PO BID #0 12/13/21 03/13/22 Rx Amitriptyline HCl [Elavil] 100 mg PO HS 03/13/22 03/13/22 History Cyanocobalamin (Vitamin B-12) 1,000 mcg PO DAILY 03/13/22 03/13/22 History [Vitamin B-12] Furosemide [Lasix] 40 mg PO DAILY 03/13/22 03/13/22 History Gabapentin 300 mg PO TID 03/13/22 03/13/22 History Gloria Root 550mg 1 tab PO DAILY 03/13/22 03/13/22 History HYDROcodone/APAP 5-325MG [[place] 1 tab PO TID 03/13/22 03/13/22 History 5-325] Pioglitazone [Actos] 30 mg PO DAILY 03/13/22 03/13/22 History lisinopriL [Zestril] 10 mg PO BID 03/13/22 03/13/22 History metFORMIN HCL 1,000 mg PO BID@1800,2100 03/13/22 03/13/22 History Allergies Allergy/AdvReac Type Severity Reaction Status Date / Time Penicillins Allergy Rash/Hives Verified 03/13/22 14:59 Physical Exam Vitals: Vital Signs Temp Pulse Pulse Resp BP BP Pulse Ox 03/14/22 11:43 84 03/14/22 11:31 80 03/14/22 08:25 92 03/14/22 08:12 92 03/14/22 08:08 97.6 F 88 17 114/53 97 03/14/22 07:51 97.6 F 88 17 114/53 97 03/14/22 03:30 96 20 03/14/22 02:15 97.8 F 102 H 30 H 119/75 98 03/13/22 21:00 96 21 135/53 99 03/13/22 20:00 88 20 140/86 97 03/13/22 19:51 98 03/13/22 19:33 97 03/13/22 16:58 86 18 147/76 99 03/13/22 15:00 79 18 155/51 99 03/13/22 14:30 82 24 176/62 99 03/13/22 14:00 80 9 L 164/63 100 03/13/22 13:48 82 03/13/22 13:33 80 03/13/22 13:30 89 26 H 164/63 03/13/22 13:00 84 18 154/69 100 03/13/22 12:41 138/98 100 03/13/22 12:36 97.2 F L 83 22 167/46 100 Intake and Output 03/13/22 03/14/22 03/14/22 22:59 06:59 14:59 Output Total 1200 Balance -1200 Output: Urine 1200 Other: Weight 111.5 kg Results - Lab Results Most recent lab results Calcium 8.7 mg/dL (8.4-10.2) 03/13/22 13:16 Magnesium 2.9 mg/dL (1.6-2.3) H 03/13/22 13:16 03/13/22 13:16 03/13/22 13:16 Assessment and Plan Plan: Assessment: 1. Acute kidney injury secondary to ATN secondary to cardiorenal syndrome. Creatinine 1.4-1 admission yesterday. Ultrasound from November 2021 showed no evidence of hydronephrosis. Creatinine was 0.98 in November 2021. 2. Volume overload. 3. Acute on chronic diastolic CHF and moderate pulmonary hypertension. 4. Diabetes mellitus. 5. Anemia. Rule out iron deficiency. Plan: Maintain IV Lasix. Low-salt diet. 1200 mL fluid restriction. Check iron studies. Strict I's and O's. Avoid nephrotoxins. Continue to monitor renal function and urine output. Follow-up echocardiogram. Thank you for the consultation. I will continue to follow the patient with you during her hospital stay.
[2022-03-14 12:56] LABS: African American GFR (CKD) 42 (>60 ml/min/1.73 sqM); Anion Gap 16 mmol/L; Blood Urea Nitrogen 36 mg/dL (7-17); Calcium 8.8 mg/dL (8.4-10.2); Carbon Dioxide 25 mmol/L (22-30); Chloride 95 mmol/L (98-107); Glucose 146 mg/dL (74-99); Magnesium 2.7 mg/dL (1.6-2.3); Non-African American GFR(CKD) 36 (>60 ml/min/1.73 sqM); Potassium 4.4 mmol/L (3.5-5.1); Sodium 136 mmol/L (137-145)
--- NOTE | 2022-03-14 13:00 | P.HPIM ---
History of Present Illness H&P Date: 03/14/22 Chief Complaint: Dyspnea, leg edema This is an 86-year-old female recently admitted with similar presentation; acute COPD exacerbation, acute CHF exacerbation, acute hypoxic respiratory failure, acute renal failure and multiple other medical issues. On that prior admission cardiology had increased metoprolol, Paul placed on hold with diuretics as per nephrology. Reports today worsening dyspnea accompanied by a increased bilateral lower extremity edema. Denies chest pain, palpitations. Denies fever or chills. Denies cough. Denies nausea vomiting or diarrhea. Denies abdominal pain. Denies lightheadedness, dizziness or focal deficits. Chest x-ray reported cardiomegaly, pulmonary vascular congestion and bilateral pleural effusions. ProBNP 2420. Echo from 10/15/2021 reporting EF 55-60%, moderate aortic stenosis, moderate pulmonary hypertension, in a patient with known history of hypertension, hyperlipidemia, diabetes mellitus, N- STEMI , multiple stents Maintaining O2 sats in the high 90s on 4 L nasal cannula, recently titrated down to 2 L, O2 sat pending. EKG reported sinus rhythm, troponin less than 0.012. Afebrile, normal WBC, hemoglobin 8.8, platelets 3:15, sodium 136, potassium 5.1, BUN 34, creatinine 1.4 to, magnesium 2.9. Blood sugars contro lled. Review of Systems ROS Statement: Those systems with pertinent positive or pertinent negative responses have been documented in the HPI. ROS Other: All systems not noted in ROS Statement are negative. Past Medical History Past Medical History: Chest Pain / Angina, Heart Failure, COPD, CVA/TIA, Diabetes Mellitus, Hyperlipidemia, Hypertension, Osteoarthritis (OA), Thyroid Disorder Additional Past Medical History / Comment(s): Using a wheelchair or a walker, bilateral peripheral neuropathy in feet and hands, chronic low back pain, lower leg edema. Last Myocardial Infarction Date:: 06/17/18 History of Any Multi-Drug Resistant Organisms: ESBL Date of last positivie culture/infection: 09/06/17 MDRO Source:: ESBL URINE Past Surgical History: Back Surgery, Heart Catheterization, Heart Catheterization With Stent, Joint Replacement, Orthopedic Surgery Additional Past Surgical History / Comment(s): Lumbar laminectomy decompression fusion L3-4 and L5-S1 with cell saver, lumbar instrumentation removal L4-5, L4- L5 laminectomy, BILATERAL KNEE REPLACEMENTS, ORIF RIGHT ANKLE, CERVICAL FUSION, bilateral rotator cuff repair, bilateral wrist carpal tunnel releases, pain procedures, left breast lumpectomy-benign, bilateral varicose vein stripping, bilateral cataracts, heart cath with 5 stents august-2021 Past Anesthesia/Blood Transfusion Reactions: No Reported Reaction Additional Past Anesthesia/Blood Transfusion Reaction / Comment(s): Pt states she has never received blood. Date of Last Stent Placement:: 08/30/2021 Past Psychological History: No Psychological Hx Reported Smoking Status: Former smoker Past Alcohol Use History: None Reported Additional Past Alcohol Use History / Comment(s): Pt started smoking in 1954 and quit in 1974. She was a 1.5 ppd smoker. Past Drug Use History: None Reported - Past Family History Father Family Medical History: Myocardial Infarction ([place]) Additional Family Medical History / Comment(s): Father at 40 of a [place]. Mother Family Medical History: CVA/TIA Additional Family Medical History / Comment(s): Mother had a CVA Medications and Allergies Home Medications Medication Instructions Recorded Confirmed Type Nitroglycerin Sl Tabs [Nitrostat] 0.4 mg SL Q5M PRN 07/20/15 03/13/22 History Atorvastatin Calcium [Lipitor] 40 mg PO HS #1 tab 08/04/15 03/13/22 Rx Cyanocobalamin [Vitamin B-12 1,000 mcg SQ Q30D 07/06/19 03/13/22 History Injection] Levothyroxine Sodium [Synthroid] 50 mcg PO AC-BRKFST 07/06/19 03/13/22 History Albuterol Nebulized [Ventolin 2.5 mg INHALATION RT-QID PRN 02/19/20 03/13/22 History Nebulized] Fluticasone/Umeclidin/Vilanter 1 puff INHALATION RT-HS 10/15/21 03/13/22 History [Trelegy Ellipta 100-62.5-25] Apixaban [Eliquis] 2.5 mg PO BID 12/09/21 03/13/22 History Empagliflozin [Jardiance] 10 mg PO DAILY 12/09/21 03/13/22 History Metoprolol Tartrate [Lopressor] 50 mg PO BID #0 12/13/21 03/13/22 Rx Amitriptyline HCl [Elavil] 100 mg PO HS 03/13/22 03/13/22 History Cyanocobalamin (Vitamin B-12) 1,000 mcg PO DAILY 03/13/22 03/13/22 History [Vitamin B-12] Furosemide [Lasix] 40 mg PO DAILY 03/13/22 03/13/22 History Gabapentin 300 mg PO TID 03/13/22 03/13/22 History Gloria Root 550mg 1 tab PO DAILY 03/13/22 03/13/22 History HYDROcodone/APAP 5-325MG [[place] 1 tab PO TID 03/13/22 03/13/22 History 5-325] Pioglitazone [Actos] 30 mg PO DAILY 03/13/22 03/13/22 History lisinopriL [Zestril] 10 mg PO BID 03/13/22 03/13/22 History metFORMIN HCL 1,000 mg PO BID@1800,2100 03/13/22 03/13/22 History Allergies Allergy/AdvReac Type Severity Reaction Status Date / Time Penicillins Allergy Rash/Hives Verified 03/13/22 14:59 Physical Exam Vitals: Vital Signs Temp Pulse Pulse Resp BP BP Pulse Ox 03/14/22 08:25 92 03/14/22 08:12 92 03/14/22 08:08 97.6 F 88 17 114/53 97 03/14/22 07:51 97.6 F 88 17 114/53 97 03/14/22 03:30 96 20 03/14/22 02:15 97.8 F 102 H 30 H 119/75 98 03/13/22 21:00 96 21 135/53 99 03/13/22 20:00 88 20 140/86 97 03/13/22 19:51 98 03/13/22 19:33 97 03/13/22 16:58 86 18 147/76 99 03/13/22 15:00 79 18 155/51 99 03/13/22 14:30 82 24 176/62 99 03/13/22 14:00 80 9 L 164/63 100 03/13/22 13:48 82 03/13/22 13:33 80 03/13/22 13:30 89 26 H 164/63 03/13/22 13:00 84 18 154/69 100 03/13/22 12:41 138/98 100 03/13/22 12:36 97.2 F L 83 22 167/46 100 Intake and Output 03/13/22 03/14/22 03/14/22 22:59 06:59 14:59 Output Total 1200 Balance -1200 Output: Urine 1200 Other: Weight 111.5 kg - Exam General: Awake, alert and oriented X 3, sitting up in chair,no acute distress. HEENT: [PERRL. EOMI. No pharyngeal erythema or exudate.] Neck: Supple, no JVD Cardiac: [Heart regular in rate and rhythm. No S3. No S4. No murmur.] Lungs: Clear but diminished bilaterally, expiratory wheezes Abdomen: Soft, nondistended, nontender. No palpable mass. No guarding. Positive Bowel sounds. Extremes: decreased edema bilateral lower extremes no cyanosis no claudication normal pulses] Skin: [Warm and dry, No rash.] Results CBC & Chem 7: 03/13/22 13:16 03/14/22 12:22 Labs: Abnormal Lab Results - Last 24 Hours (Table) 03/13/22 03/13/22 03/13/22 Range/Units 13:16 13:16 17:14 RBC 3.48 L (3.80-5.40) m/uL Hgb 8.8 L (11.4-16.0) gm/dL Hct 28.9 L (34.0-46.0) % MCHC 30.6 L (31.0-37.0) g/dL RDW 16.3 H (11.5-15.5) % Sodium 136 L (137-145) mmol/L BUN 34 H (7-17) mg/dL Creatinine 1.42 H (0.52-1.04) mg/dL Glucose 121 H (74-99) mg/dL POC Glucose (mg/dL) 139 H (70-110) mg/dL Magnesium 2.9 H (1.6-2.3) mg/dL 03/13/22 03/14/22 03/14/22 Range/Units 23:34 07:12 11:08 RBC (3.80-5.40) m/uL Hgb (11.4-16.0) gm/dL Hct (34.0-46.0) % MCHC (31.0-37.0) g/dL RDW (11.5-15.5) % Sodium (137-145) mmol/L BUN (7-17) mg/dL Creatinine (0.52-1.04) mg/dL Glucose (74-99) mg/dL POC Glucose (mg/dL) 172 H 146 H 171 H (70-110) mg/dL Magnesium (1.6-2.3) mg/dL Thrombosis Risk Factor Assmnt - Choose All That Apply Any of the Below Risk Factors Present?: No Other Risk Factors: Yes Each Risk Factor Represents 3 Points: Age 75 years or older Other congenital or acquired thrombophilia - If yes, enter type in comment: No Thrombosis Risk Factor Assessment Total Risk Factor Score: 3 Thrombosis Risk Factor Assessment Level: Moderate Risk Assessment and Plan Assessment: (1) Acute on chronic diastolic (congestive) heart failure Current Visit: Yes Status: Acute Code(s): I50.33 - ACUTE ON CHRONIC D IASTOLIC (CONGESTIVE) HEART FAILURE SNOMED Code(s): 915258590 (2) Acute hypoxic respiratory failure secondary all the above (3) acute renal failure, secondary to ATN related to cardiorenal syndrome (4) acute on chronic anemia, etiology unclear, iron studies ordered (5)HIstory of chronic obstructive pulmonary disease (6) Type 2 diabetes mellitus, A1c 5.8 Current Visit: Yes Status: Acute Code(s): E11.9 - TYPE 2 DIABETES MELLITUS WITHOUT COMPLICATIONS SNOMED Code(s): 353224345 (7) CAD, history of stenting (8) Hypertension Current Visit: No Status: Acute Code(s): I10 - ESSENTIAL (PRIMARY) HYPERTENSION SNOMED Code(s): 61398367 (8) morbid obesity, BMI 44.4 (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 coli (15) moderate aortic stenosis (16) moderate pulmonary hypertension Plan: Continue on current medication regime ,monitoring and symptomatic treatment. Pulmonary, nephrology consults in place. Echo ordered. Diuresing on Lasix IV push. Fluid restrictions. Close monitoring of renal function, electrolytes. Maintain nebulized bronchodilators, IV steroids. The impression and plan of care has been dictated as directed. : I performed a history and examination of this patient, discussed the same with the dictator. I agree with the dictator's note ,documented as a scribe. Any additional findings or plans will be noted.
[2022-03-14] MEDS: INSULIN ASPART (NovoLOG) 100 UNIT/ML VIAL SQ SCH ×3 (13:19→20:01)
[2022-03-14] MEDS: metFORMIN 500 MG TAB PO SCH ×2 (16:52→19:51)
[2022-03-14] MEDS: HYDROcodone/APAP 5-325MG 1 EACH TAB PO SCH ×2 (16:53→19:52)
[2022-03-14] MEDS: GABAPENTIN 300 MG CAP PO SCH ×2 (16:53→19:52)
[2022-03-14 17:02] LABS: Glucose,Whole Blood 201 mg/dL (70-110)
[2022-03-14 17:21] LABS: Appearance,Urine Clear (Clear); Bacteria,Urine Occasional /hpf; Bilirubin,Urine Negative (Negative); Blood,Urine Negative (Negative); Color,Urine Colorless; Glucose,Urine (UA) 4+ (Negative); Ketones,Urine Trace (Negative); Leukocyte Esterase,Urine Large (Negative); Mucus,Urine Rare /hpf; Nitrite,Urine Positive (Negative); PH, Urine 6.5 (5.0-8.0); Protein,Urine Negative (Negative); RBC,Urine 1 /hpf (0-5); Specific Gravity,Urine 1.006 (1.001-1.035); Squamous Epithelial Cell,Urine <1 /hpf (0-4); Urobilinogen,Urine <2.0 mg/dL (<2.0); WBC,Urine 4 /hpf (0-5)
[2022-03-14] MEDS: SYMBICORT 160-4.5 MCG INHALER INHALATION SCH (19:12)
[2022-03-14 19:51] LABS: Glucose,Whole Blood 237 mg/dL (70-110)
[2022-03-14] MEDS: ATORVASTATIN 40 MG TAB PO SCH (19:52)
[2022-03-14] MEDS: METOPROLOL TARTRATE 50 MG TAB PO SCH (19:52)
[2022-03-14] MEDS: lisinopriL 10 MG TAB PO SCH (19:52)
[2022-03-14] MEDS: AMITRIPTYLINE HCL 50 MG TAB PO SCH (19:52)
[2022-03-14] MEDS: APIXABAN 2.5 MG TABLET PO SCH (19:52)
[2022-03-14 19:53] LABS: Ferritin 19.2 ng/mL (10.0-291.0)
[2022-03-14 21:02] LABS: Iron 22 ug/dL (50-170)
[2022-03-15 05:58] LABS: Anisocytosis Slight; Basophils % (A) 0 %; Eosinophils % (A) 0 %; HGB 8.6 gm/dL (11.4-16.0); Hypochromasia Marked; Lymphocytes # (A) 0.8 k/uL (1.0-4.8); Lymphocytes % (A) 13 %; MCH 24.9 pg (25.0-35.0); MCHC 29.5 g/dL (31.0-37.0); MCV 84.5 fL (80.0-100.0); Mean Platelet Volume 7.3; Monocytes # (A) 0.3 k/uL (0-1.0); Monocytes % (A) 5 %; Neutrophils % (A) 80 %; Platelet Count 348 k/uL (150-450); RBC 3.43 m/uL (3.80-5.40); RDW 16.4 % (11.5-15.5); WBC 6.2 k/uL (3.8-10.6)
[2022-03-15 06:18] LABS: African American GFR (CKD) 42 (>60 ml/min/1.73 sqM); Anion Gap 13 mmol/L; Blood Urea Nitrogen 46 mg/dL (7-17); Calcium 8.5 mg/dL (8.4-10.2); Carbon Dioxide 27 mmol/L (22-30); Chloride 96 mmol/L (98-107); Glucose 174 mg/dL (74-99); Magnesium 2.6 mg/dL (1.6-2.3); Non-African American GFR(CKD) 37 (>60 ml/min/1.73 sqM); Potassium 4.6 mmol/L (3.5-5.1); Sodium 136 mmol/L (137-145)
[2022-03-15] MEDS: NITROGLYCERIN OINT 1 INCH/GM PACKET TOPICAL SCH (06:20)
[2022-03-15] MEDS: methylPREDNISolone SOD SUCCI 125 MG/2 ML VIAL IV SCH ×4 (06:20→22:21)
[2022-03-15 06:49] LABS: Glucose,Whole Blood 162 mg/dL (70-110)
[2022-03-15] MEDS: CYANOCOBALAMIN 500 MCG TAB PO SCH (07:38)
[2022-03-15] MEDS: GABAPENTIN 300 MG CAP PO SCH ×3 (07:39→22:08)
[2022-03-15] MEDS: lisinopriL 10 MG TAB PO SCH ×2 (07:39→21:47)
[2022-03-15] MEDS: LEVOTHYROXINE 50 MCG TAB PO SCH (07:39)
[2022-03-15] MEDS: HYDROcodone/APAP 5-325MG 1 EACH TAB PO SCH ×3 (07:39→22:08)
[2022-03-15] MEDS: FUROSEMIDE 10 MG/ML 4 ML VIAL IV SCH ×2 (07:40→21:47)
[2022-03-15] MEDS: INSULIN ASPART (NovoLOG) 100 UNIT/ML VIAL SQ SCH ×4 (07:40→22:21)
[2022-03-15] MEDS: APIXABAN 2.5 MG TABLET PO SCH ×2 (07:40→22:08)
[2022-03-15] MEDS: IPRATROPIUM-ALBUTEROL 3 ML NEB INHALATION SCH ×4 (08:06→20:33)
[2022-03-15] MEDS: SYMBICORT 160-4.5 MCG INHALER INHALATION SCH ×2 (08:06→20:33)
[2022-03-15] MEDS: PIOGLITAZONE 30 MG TAB PO SCH (10:08)
[2022-03-15] MEDS: METOPROLOL TARTRATE 50 MG TAB PO SCH ×2 (10:09→22:08)
--- NOTE | 2022-03-15 10:34 | P.PN ---
Subjective Patient is seen in follow-up for acute kidney injury. Renal function stable. Dyspnea and edema both improved. Good urine output. On 2 L nasal cannula. Blood pressure stable. No vomiting or diarrhea. Vital signs are stable. General: Awake. No acute distress. HEENT: Head exam is unremarkable. On nasal cannula. LUNGS: Breath sounds decreased. HEART: Rate and Rhythm are regular. ABDOMEN: Soft, no distention. EXTREMITITES: 1+ edema. Objective - Vital Signs Vital signs: Vital Signs Temp 97.7 F 03/15/22 08:00 Pulse 78 03/15/22 08:13 Resp 16 03/15/22 08:00 BP 145/66 03/15/22 08:00 Pulse Ox 100 03/15/22 08:00 FiO2 Intake & Output 03/14/22 03/15/22 03/15/22 18:59 06:59 18:59 Output Total 750 700 Balance -750 -700 Weight 110.3 kg Output: Urine 750 700 Other: # Voids 1 - Labs CBC & Chem 7: 03/15/22 05:26 03/15/22 05:26 Labs: Abnormal Lab Results - Last 24 Hours (Table) 03/14/22 03/14/22 03/14/22 Range/Units 11:08 12:22 15:00 RBC (3.80-5.40) m/uL Hgb (11.4-16.0) gm/dL Hct (34.0-46.0) % MCH (25.0-35.0) pg MCHC (31.0-37.0) g/dL RDW (11.5-15.5) % Lymphocytes # (1.0-4.8) k/uL Sodium 136 L (137-145) mmol/L Chloride 95 L (98-107) mmol/L BUN 36 H (7-17) mg/dL Creatinine 1.35 H (0.52-1.04) mg/dL Glucose 146 H (74-99) mg/dL POC Glucose (mg/dL) 171 H (70-110) mg/dL Magnesium 2.7 H (1.6-2.3) mg/dL Iron 22 L (50-170) ug/dL Transferrin 414.0 H (204.0-354.0) mg/dL Urine Glucose (UA) 4+ H (Negative) Urine Ketones Trace H (Negative) Urine Nitrite Positive H (Negative) Ur Leukocyte Esterase Large H (Negative) Urine Bacteria Occasional H (None) /hpf Urine Mucus Rare H (None) /hpf 03/14/22 03/14/22 03/15/22 Range/Units 17:01 19:51 05:26 RBC (3.80-5.40) m/uL Hgb (11.4-16.0) gm/dL Hct (34.0-46.0) % MCH (25.0-35.0) pg MCHC (31.0-37.0) g/dL RDW (11.5-15.5) % Lymphocytes # (1.0-4.8) k/uL Sodium 136 L (137-145) mmol/L Chloride 96 L (98-107) mmol/L BUN 46 H (7-17) mg/dL Creatinine 1.33 H (0.52-1.04) mg/dL Glucose 174 H (74-99) mg/dL POC Glucose (mg/dL) 201 H 237 H (70-110) mg/dL Magnesium 2.6 H (1.6-2.3) mg/dL Iron (50-170) ug/dL Transferrin (204.0-354.0) mg/dL Urine Glucose (UA) (Negative) Urine Ketones (Negative) Urine Nitrite (Negative) Ur Leukocyte Esterase (Negative) Urine Bacteria (None) /hpf Urine Mucus (None) /hpf 03/15/22 03/15/22 Range/Units 05:26 06:48 RBC 3.43 L (3.80-5.40) m/uL Hgb 8.6 L (11.4-16.0) gm/dL Hct 29.0 L (34.0-46.0) % MCH 24.9 L (25.0-35.0) pg MCHC 29.5 L (31.0-37.0) g/dL RDW 16.4 H (11.5-15.5) % Lymphocytes # 0.8 L (1.0-4.8) k/uL Sodium (137-145) mmol/L Chloride (98-107) mmol/L BUN (7-17) mg/dL Creatinine (0.52-1.04) mg/dL Glucose (74-99) mg/dL POC Glucose (mg/dL) 162 H (70-110) mg/dL Magnesium (1.6-2.3) mg/dL Iron (50-170) ug/dL Transferrin (204.0-354.0) mg/dL Urine Glucose (UA) (Negative) Urine Ketones (Negative) Urine Nitrite (Negative) Ur Leukocyte Esterase (Negative) Urine Bacteria (None) /hpf Urine Mucus (None) /hpf Assessment and Plan Plan: Assessment: 1. Acute kidney injury secondary to ATN secondary to cardiorenal syndrome. Creatinine 1.42 admission - 1.33 today. No proteinuria on UA. Ultrasound from November 2021 showed no evidence of hydronephrosis. Creatinine was 0.98 in November 2021. 2. Volume overload. Improving with diuresis. 3. Acute on chronic diastolic CHF and moderate pulmonary hypertension. 4. Diabetes mellitus. 5. Anemia. Iron deficiency noted. Plan: Maintain IV Lasix - frequency decreased to twice daily. Transition to oral diuretics in the next 24-48 hours. Low-salt diet. 1200 mL fluid restriction. Add IV iron. Strict I's and O's. Avoid nephrotoxins. Continue to monitor renal function and urine output. Follow-up echocardiogram.
--- NOTE | 2022-03-15 10:35 | P.CRDCN ---
History of Present Illness Consult date: 03/15/22 History of present illness: HISTORY OF PRESENT ILLNESS: This is a 86-year-old female with a past medical history significant for coronary artery disease with previous stenting, paroxysmal atrial fibrillation, aortic stenosis, obstructive sleep apnea, hypertension, hyperlipidemia, diabetes, and former nicotine dependence. Patient follows in the office with Dr. Case. We have been asked to see the patient in consultation for CHF and aortic stenosis. Patient examined at the bedside. Patient presented to the hospital with a chief complaint of shortness of breath and increased lower extremity edema. She was started on IV lasix. She reports improvement in her breathing this morning. She denies chest pain or pressure. Denies dizziness or ligh theadedness. Vital signs are stable. * EKG reveals sinus mechanism with no signs of acute ischemia. * Chest xray cardiomegaly, pulmonary vascular congestion and bilateral pleural effusions. Superimposed infectious process is not excluded * Laboratory data: WBC 6.2. Hemoglobin 8.6. Platelet count 348. Sodium 136. Potassium 4.6. BUN 46. Creatinine 1.33. Troponin negative 1. ProBNP 2420. * Current home cardiac medications include Eliquis 2.5 mg twice a day, Lipitor 40 mg at night, Jardiance 10mg daily, Lasix 40 mg daily, metoprolol tartrate 50 mg twice a day, lisinopril 10 mg twice a day * Most recent echocardiogram obtained in September 2021 revealed ejection fraction 55-60%, moderate aortic stenosis, mild MR, mild TR, moderate pulmonary hypertension * Cardiac catheterization history: September 2021 with successful stenting of the obtuse marginal branch 1, proximal LAD, and mid LAD REVIEW OF SYSTEMS: At the time of my exam: CONSTITUTIONAL: Denies fever or chills. HEENT: Denies blurred vision, vision changes, or eye pain. Denies hemoptysis CARDIOVASCULAR: Denies chest pain. Denies orthopnea. Denies PND. Denies palpitations RESPIRATORY: Denies shortness of breath. GASTROINTESTINAL: Denies abdominal pain. Denies nausea or vomiting. HEMATOLOGIC: Denies bleeding disorders. GENITOURINARY: Denies any blood in urine. SKIN: Denies pruitis. Denies rash. PHYSICAL EXAM: VITAL SIGNS: Reviewed. GENERAL: Well-developed in no acute distress. HEENT: Head is normocephalic. Pupils are equal, round. Sclerae anicteric. Mucous membranes of the mouth are moist. Neck supple. No JVD or thyromegaly LUNGS: Respirations even and unlabored. Lungs diminished to auscultation bilaterally. HEART: Regular rate and rhythm. S1 and S2 heard. Systolic murmur noted. ABDOMEN: Soft. Nondistended. Nontender. EXTREMITIES: Normal range of motion. No clubbing or cyanosis. Peripheral pulses intact. Bilateral nonpitting lower extremity edema present. NEUROLOGIC: Awake and alert. Oriented x 3. ASSESSMENT: Shortness of breath Acute on chronic congestive heart failure with preserved EF Coronary artery disease with previous stenting Paroxysmal atrial fibrillation Moderate aortic stenosis Obstructive sleep apnea COPD Anemia Hypertension Hyperlipidemia Diabetes Former nicotine dependence PLAN: 2D echo reviewed by Dr. Dorado. Patient with moderate . Not a candidate at this time for TAVR. May continue to be evaluated in the outpatient setting with Dr. Case with possible RICH outpatient. Continue IV lasix. Decrease dosage to Q12 hours Continue additional home cardiac medications Further recommendations pending patient course Nurse practitioner note has been reviewed by physician. Signing provider agrees with the documented findings, assessment, and plan of care. Past Medical History Past Medical History: Chest Pain / Angina, Heart Failure, COPD, CVA/TIA, Diabetes Mellitus, Hyperlipidemia, Hypertension, Osteoarthritis (OA), Thyroid Disorder Additional Past Medical History / Comment(s): Using a wheelchair or a walker, bilateral peripheral neuropathy in feet and hands, chronic low back pain, lower leg edema. Last Myocardial Infarction Date:: 06/17/18 History of Any Multi-Drug Resistant Organisms: ESBL Date of last positivie culture/infection: 09/06/17 MDRO Source:: ESBL URINE Past Surgical History: Back Surgery, Heart Catheterization, Heart Catheterization With Stent, Joint Replacement, Orthopedic Surgery Additional Past Surgical History / Comment(s): Lumbar laminectomy decompression fusion L3-4 and L5-S1 with cell saver, lumbar instrumentation removal L4-5, L4- L5 laminectomy, BILATERAL KNEE REPLACEMENTS, ORIF RIGHT ANKLE, CERVICAL FUSION, bilateral rotator cuff repair, bilateral wrist carpal tunnel releases, pain procedures, left breast lumpectomy-benign, bilateral varicose vein stripping, bilateral cataracts, heart cath with 5 stents august-2021 Past Anesthesia/Blood Transfusion Reactions: No Reported Reaction Additional Past Anesthesia/Blood Transfusion Reaction / Comment(s): Pt states she has never received blood. Date of Last Stent Placement:: 08/30/2021 Past Psychological History: No Psychological Hx Reported Smoking Status: Former smoker Past Alcohol Use History: None Reported Additional Past Alcohol Use History / Comment(s): Pt started smoking in 7 and quit in 1974. She was a 1.5 ppd smoker. Past Drug Use History: None Reported - Past Family History Father Family Medical History: Myocardial Infarction (MD) Additional Family Medical History / Comment(s): Father at 40 of a MD. Mother Family Medical History: CVA/TIA Additional Family Medical History / Comment(s): Mother had a CVA Medications and Allergies Home Medications Medication Instructions Recorded Confirmed Type Nitroglycerin Sl Tabs [Nitrostat] 0.4 mg SL Q5M PRN 07/20/15 03/13/22 History Atorvastatin Calcium [Lipitor] 40 mg PO HS #1 tab 08/04/15 03/13/22 Rx Cyanocobalamin [Vitamin B-12 1,000 mcg SQ Q30D 07/06/19 03/13/22 History Injection] Levothyroxine Sodium [Synthroid] 50 mcg PO AC-BRKFST 07/06/19 03/13/22 History Albuterol Nebulized [Ventolin 2.5 mg INHALATION RT-QID PRN 02/19/20 03/13/22 History Nebulized] Fluticasone/Umeclidin/Vilanter 1 puff INHALATION RT-HS 10/15/21 03/13/22 History [Trelegy Ellipta 100-62.5-25] Apixaban [Eliquis] 2.5 mg PO BID 12/09/21 03/13/22 History Empagliflozin [Jardiance] 10 mg PO DAILY 12/09/21 03/13/22 History Metoprolol Tartrate [Lopressor] 50 mg PO BID #0 12/13/21 03/13/22 Rx Amitriptyline HCl [Elavil] 100 mg PO HS 03/13/22 03/13/22 History Cyanocobalamin (Vitamin B-12) 1,000 mcg PO DAILY 03/13/22 03/13/22 History [Vitamin B-12] Furosemide [Lasix] 40 mg PO DAILY 03/13/22 03/13/22 History Gabapentin 300 mg PO TID 03/13/22 03/13/22 History Gloria Root 550mg 1 tab PO DAILY 03/13/22 03/13/22 History HYDROcodone/APAP 5-325MG [[place] 1 tab PO TID 03/13/22 03/13/22 History 5-325] Pioglitazone [Actos] 30 mg PO DAILY 03/13/22 03/13/22 History lisinopriL [Zestril] 10 mg PO BID 03/13/22 03/13/22 History metFORMIN HCL 1,000 mg PO BID@1800,2100 03/13/22 03/13/22 History Allergies Allergy/AdvReac Type Severity Reaction Status Date / Time Penicillins Allergy Rash/Hives Verified 03/13/22 14:59 Physical Exam Vitals: Vital Signs Temp Pulse Pulse Resp BP Pulse Ox 03/15/22 08:13 78 03/15/22 08:06 76 03/15/22 08:00 97.7 F 77 16 145/66 100 03/15/22 07:04 97.5 F L 82 17 116/69 99 03/15/22 02:20 97.3 F L 74 20 109/63 99 03/14/22 19:54 98.6 F 95 16 126/55 97 03/14/22 19:27 83 03/14/22 19:13 82 03/14/22 15:51 84 03/14/22 15:41 83 03/14/22 14:00 97.9 F 102 H 18 119/63 98 03/14/22 12:35 97.6 F 106 H 18 132/66 03/14/22 11:43 84 03/14/22 11:31 80 Intake and Output 03/14/22 03/15/22 03/15/22 22:59 06:59 14:59 Output Total 750 700 Balance -750 -700 Output: Urine 750 700 Other: # Voids 1 Weight 110.3 kg Results 03/15/22 05:26 03/15/22 05:26 CBC 03/15/22 Range/Units 05:26 WBC 6.2 (3.8-10.6) k/uL RBC 3.43 L (3.80-5.40) m/uL Hgb 8.6 L (11.4-16.0) gm/dL Hct 29.0 L (34.0-46.0) % Plt Count 348 (150-450) k/uL Comprehensive Metabolic Panel 03/14/22 03/15/22 Range/Units 12:22 05:26 Sodium 136 L 136 L (137-145) mmol/L Potassium 4.4 4.6 (3.5-5.1) mmol/L Chloride 95 L 96 L (98-107) mmol/L Carbon Dioxide 25 27 (22-30) mmol/L BUN 36 H 46 H (7-17) mg/dL Creatinine 1.35 H 1.33 H (0.52-1.04) mg/dL Glucose 146 H 174 H (74-99) mg/dL Calcium 8.8 8.5 (8.4-10.2) mg/dL Current Medications Generic Name Dose Route Start Last Admin Trade Name Freq PRN Reason Stop Dose Admin Hydrocodone Bitart/Acetaminophen 1 each 03/14/22 16:00 03/15/22 07:39 Hydrocodone/Apap 5-325mg 1 Each Tab PO 1 each TID LEIGH ANN Administration Albuterol/Ipratropium 3 ml 03/13/22 16:00 03/15/22 08:06 Ipratropium-Albuterol 3 Ml Neb INHALATION 3 ml RT-QID LEIGH ANN Administration Albuterol/Ipratropium 3 ml 03/14/22 11:45 Ipratropium-Albuterol 3 Ml Neb INHALATION RT-Q2H PRN Shortness Of Breath Or Wheezing Amitriptyline HCl 100 mg 03/14/22 21:00 03/14/22 19:52 Amitriptyline Hcl 50 Mg Tab PO 100 mg HS LEIGH ANN Administration Apixaban 2.5 mg 03/14/22 21:00 03/15/22 07:40 Apixaban 2.5 Mg Tablet PO 2.5 mg BID LEIGH ANN Administration Protocol Atorvastatin Calcium 40 mg 03/14/22 21:00 03/14/22 19:52 Atorvastatin 40 Mg Tab PO 40 mg HS LEIGH ANN Administration Budesonide/Formoterol Fumarate 2 puff 03/14/22 20:00 03/15/22 08:06 Symbicort 160-4.5 Mcg Inhaler INHALATION 2 puff RT-BID LEIGH ANN Administration Cyanocobalamin 1,000 mcg 03/15/22 09:00 03/15/22 07:38 Cyanocobalamin 500 Mcg Tab PO 1,000 mcg DAILY LEIGH ANN Administration Dextrose/Water 25 ml 03/14/22 09:10 Dextrose 50% Syringe 50 Ml IVP PER PROTOCOL PRN Hypoglycemia Protocol Dextrose/Water 50 ml 03/14/22 09:10 Dextrose 50% Syringe 50 Ml IVP PER PROTOCOL PRN Hypoglycemia Protocol Furosemide 40 mg 03/15/22 21:00 Furosemide 10 Mg/Ml 4 Ml Vial IV Q12HR LEIGH ANN Gabapentin 300 mg 03/14/22 16:00 03/15/22 07:39 Gabapentin 300 Mg Cap PO 300 mg TID LEIGH ANN Administration Insulin Aspart 0 unit 03/14/22 12:30 03/15/22 07:40 Insulin Aspart (Novolog) 100 Unit/Ml Vial SQ 1 unit ACHS LEIGH ANN Administration Protocol Levothyroxine Sodium 50 mcg 03/15/22 07:30 03/15/22 07:39 Levothyroxine 50 Mcg Tab PO 50 mcg AC-BRKFST LEIGH ANN Administration Lisinopril 10 mg 03/14/22 21:00 03/15/22 07:39 Lisinopril 10 Mg Tab PO 10 mg BID LEIGH ANN Administration Metformin HCl 1,000 mg 03/14/22 18:00 03/14/22 19:51 Metformin 500 Mg Tab PO 1,000 mg BID@1800,2100 LEIGH ANN Administration Methylprednisolone Sodium Succinate 60 mg 03/13/22 18:00 03/15/22 06:20 Methylprednisolone Sod Succi 125 Mg/2 Ml Vial IV 60 mg Q6HR LEIGH ANN Administration Metoprolol Tartrate 50 mg 03/14/22 21:00 03/15/22 10:09 Metoprolol Tartrate 50 Mg Tab PO 50 mg BID LEIGH ANN Administration Naloxone HCl 0.2 mg 03/13/22 15:11 Naloxone 0.4 Mg/Ml 1 Ml Vial IVP Q2M PRN Opioid Reversal Pioglitazone HCl 30 mg 03/15/22 09:00 03/15/22 10:08 Pioglitazone 30 Mg Tab PO 30 mg DAILY LEIGH ANN Administration Intake and Output 03/14/22 03/15/22 03/15/22 22:59 06:59 14:59 Output Total 750 700 Balance -750 -700 Output: Urine 750 700 Other: # Voids 1 Weight 110.3 kg 03/15/22 05:26 03/15/22 05:26
[2022-03-15 11:09] LABS: Glucose,Whole Blood 241 mg/dL (70-110)
--- NOTE | 2022-03-15 11:43 | P.PN ---
Subjective Progress Note Date: 03/15/22 This is a very pleasant 86-year-old morbidly obese female patient, quite debilitated in a wheelchair, known to have COPD/asthma maintained Trelegy and albuterol in the outpatient setting, former smoker, CHF with diastolic failure, coronary artery disease with previous multi coronary artery stenting and di abetes mellitus. The patient has been fully vaccinated for COVID 19. She had been admitted for CHF/COPD exacerbations from December 09 through 12/13/2021. The patient comes in to the hospital because of worsening shortness of breath. She has also some increase in lower extremity edema. She has exertional dyspnea. Minimal cough. No significant sputum production. No fever or chills. No nausea vomiting or emesis. No altered mentation. Chest x-ray reveals cardiomegaly, pulmonary vascular congestion and bilateral pleural effusions. White count 6.1. Hemoglobin 8.8. Sodium 136. Potassium 5.1. BUN 34. Creatinine 1.42. Glucose 172. Troponin negative times one. ProBNP 2420. She's been initiated and DuoNeb inhalations, Symbicort, IV site Medrol, IV diuretics. She is seen today in consultation on the regular medical floor. She is resting comfortably in bed. Awake and alert in no acute distress. Maintaining O2 saturations in the 90s on 2 L/m per nasal cannula. She's afebrile. Hemodynamically stable. Making adequate urine output. The patient is seen today 03/15/2022 in follow-up on the regular medical floor. She is currently resting comfortably in bed. Awake and alert in no acute distress. Breathing a bit easier today compared to yesterday. Maintaining O2 saturations up to 100% on 2 L/m per nasal cannula. Afebrile. Hemodynamically stable. White count 6.2. Hemoglobin 8.6. Sodium 136. Potassium 4.6. Bicarb 27. BUN 46. Creatinine 1.33. Glucose 174. Pro-calcitonin 0.08. She is continued on DuoNeb inhalations, Symbicort, IV Solu-Medrol. Remains on IV diuretics. Currently in a -1.4 L balance. Anticoagulated with Eliquis. Objective - Vital Signs Vital signs: Vital Signs Temp 97.7 F 03/15/22 08:00 Pulse 80 03/15/22 11:38 Resp 17 03/15/22 10:26 BP 145/66 03/15/22 08:00 Pulse Ox 94 L 03/15/22 10:00 FiO2 Intake & Output 03/14/22 03/15/22 03/15/22 18:59 06:59 18:59 Output Total 750 700 Balance -750 -700 Weight 110.3 kg Output: Urine 750 700 Other: # Voids 1 - Exam GENERAL EXAM: Alert, 86-year-old female, morbidly obese, on 2 L nasal cannula, comfortable in no apparent distress. HEAD: Normocephalic. EYES: Normal reaction of pupils, equal size. NOSE: Clear with pink turbinates. THROAT: No erythema or exudates. NECK: No masses, no JVD. CHEST: No chest wall deformity. LUNGS: Equal air entry with faint crackles in the posterior bases. CVS: S1 and S2 normal with no audible murmur, regular rhythm. ABDOMEN: No hepatosplenomegaly, normal bowel sounds, no guarding or rigidity. SPINE: No scoliosis or deformity SKIN: No rashes CENTRAL NERVOUS SYSTEM: No focal deficits, tone is normal in all 4 extremities. EXTREMITIES: There is 1+ peripheral edema. No clubbing, no cyanosis. Peripheral pulses are intact. - Labs CBC & Chem 7: 03/15/22 05:26 03/15/22 05:26 Labs: Abnormal Lab Results - Last 24 Hours (Table) 03/14/22 03/14/22 03/14/22 Range/Units 12:22 15:00 17:01 RBC (3.80-5.40) m/uL Hgb (11.4-16.0) gm/dL Hct (34.0-46.0) % MCH (25.0-35.0) pg MCHC (31.0-37.0) g/dL RDW (11.5-15.5) % Lymphocytes # (1.0-4.8) k/uL Sodium 136 L (137-145) mmol/L Chloride 95 L (98-107) mmol/L BUN 36 H (7-17) mg/dL Creatinine 1.35 H (0.52-1.04) mg/dL Glucose 146 H (74-99) mg/dL POC Glucose (mg/dL) 201 H (70-110) mg/dL Magnesium 2.7 H (1.6-2.3) mg/dL Iron 22 L (50-170) ug/dL Transferrin 414.0 H (204.0-354.0) mg/dL Urine Glucose (UA) 4+ H (Negative) Urine Ketones Trace H (Negative) Urine Nitrite Positive H (Negative) Ur Leukocyte Esterase Large H (Negative) Urine Bacteria Occasional H (None) /hpf Urine Mucus Rare H (None) /hpf 03/14/22 03/15/22 03/15/22 Range/Units 19:51 05:26 05:26 RBC 3.43 L (3.80-5.40) m/uL Hgb 8.6 L (11.4-16.0) gm/dL Hct 29.0 L (34.0-46.0) % MCH 24.9 L (25.0-35.0) pg MCHC 29.5 L (31.0-37.0) g/dL RDW 16.4 H (11.5-15.5) % Lymphocytes # 0.8 L (1.0-4.8) k/uL Sodium 136 L (137-145) mmol/L Chloride 96 L (98-107) mmol/L BUN 46 H (7-17) mg/dL Creatinine 1.33 H (0.52-1.04) mg/dL Glucose 174 H (74-99) mg/dL POC Glucose (mg/dL) 237 H (70-110) mg/dL Magnesium 2.6 H (1.6-2.3) mg/dL Iron (50-170) ug/dL Transferrin (204.0-354.0) mg/dL Urine Glucose (UA) (Negative) Urine Ketones (Negative) Urine Nitrite (Negative) Ur Leukocyte Esterase (Negative) Urine Bacteria (None) /hpf Urine Mucus (None) /hpf 03/15/22 03/15/22 Range/Units 06:48 11:08 RBC (3.80-5.40) m/uL Hgb (11.4-16.0) gm/dL Hct (34.0-46.0) % MCH (25.0-35.0) pg MCHC (31.0-37.0) g/dL RDW (11.5-15.5) % Lymphocytes # (1.0-4.8) k/uL Sodium (137-145) mmol/L Chloride (98-107) mmol/L BUN (7-17) mg/dL Creatinine (0.52-1.04) mg/dL Glucose (74-99) mg/dL POC Glucose (mg/dL) 162 H 241 H (70-110) mg/dL Magnesium (1.6-2.3) mg/dL Iron (50-170) ug/dL Transferrin (204.0-354.0) mg/dL Urine Glucose (UA) (Negative) Urine Ketones (Negative) Urine Nitrite (Negative) Ur Leukocyte Esterase (Negative) Urine Bacteria (None) /hpf Urine Mucus (None) /hpf Assessment and Plan Assessment: Acute hypoxemic respiratory failure secondary to an acute exacerbation of diastolic congestive heart failure. Pro-calcitonin 0.08. Acute on chronic anemia Acute renal failure History of chronic obstructive pulmonary disease secondary to a remote history of chronic tobacco dependence. Currently on Trelegy and albuterol in the outpatient setting. Previous history of urinary tract infection secondary to Klebsiella pneumoniae and E. coli. Morbid obesity. BMI 43.5 kg per metered squared Diabetes mellitus, type II CAD and previous stenting Hyperlipidemia. Osteoarthritis. History of hypertension. Chronic back pain with previous laminectomy and decompression involving the lumbosacral spine. Chronic neck pain. Plan: The patient was seen and evaluated Labs and medications reviewed Continue with IV diuretics Continue with bronchodilators Titrate the FiO2 as tolerated We will continue to follow I have personally seen and examined the patient, performed the documentation and the assessment and plan as written. Number of minutes spent on the visit: 10.
[2022-03-15] MEDS: SODIUM FERRIC GLUCONAT-SUCROSE 125 MG in SODIUM CHLORIDE 0.9% 100 ML IVPB SCH (12:33)
--- NOTE | 2022-03-15 13:58 | P.PN ---
Subjective Progress Note Date: 03/15/22 H&P Date: 03/14/22 Chief Complaint: Dyspnea, leg edema This is an 86-year-old female recently admitted with similar presentation; acute COPD exacerbation, acute CHF exacerbation, acute hypoxic respiratory failure, acute renal failure and multiple other medical issues. On that prior admission cardiology had increased metoprolol, Paul placed on hold with diuretics as per nephrology. Reports today worsening dyspnea accompanied by a increased bilateral lower extremity edema. Denies chest pain, palpitations. Denies fever or chills. Denies cough. Denies nausea vomiting or diarrhea. Denies abdominal pain. Denies lightheadedness, dizziness or focal deficits. Chest x-ray reported cardiomegaly, pulmonary vascular congestion and bilateral pleural ef fusions. ProBNP 2420. Echo from 10/15/2021 reporting EF 55-60%, moderate aortic stenosis, moderate pulmonary hypertension, in a patient with known history of hypertension, hyperlipidemia, diabetes mellitus, N- STEMI , multiple stents Maintaining O2 sats in the high 90s on 4 L nasal cannula, recently titrated down to 2 L, O2 sat pending. EKG reported sinus rhythm, troponin less than 0.012. Afebrile, normal WBC, hemoglobin 8.8, platelets 3:15, sodium 136, potassium 5.1, BUN 34, creatinine 1.4 to, magnesium 2.9. Blood sugars controlled. 03/15/22 evaluated by cardiology, patient at this time not a candidate for TAVR. Echo completed, report pending. Diuresing well on Lasix IV push with 24-hour I&O reflecting a negative fluid balance. Dose decreased. Creatinine 1.33. Breathing improved, maintaining O2 sats in the high 90s to 100% on 2 L nasal cannula. Afebrile, normal WBC. Objective - Vital Signs Vital signs: Vital Signs Temp 97.7 F 03/15/22 08:00 Pulse 78 03/15/22 08:13 Resp 17 03/15/22 10:26 BP 145/66 03/15/22 08:00 Pulse Ox 100 03/15/22 08:00 FiO2 Intake & Output 03/14/22 03/15/22 03/15/22 18:59 06:59 18:59 Output Total 750 700 Balance -750 -700 Weight 110.3 kg Output: Urine 750 700 Other: # Voids 1 - Exam - Exam General: Awake, alert and oriented X 3, sitting up in chair,no acute distress. HEENT: [PERRL. EOMI. Neck: Supple, no JVD Cardiac: [Heart regular in rate and rhythm. No S3. No S4. Systolic murmur.] Lungs: Clear but diminished bilaterally, expiratory wheezes Abdomen: Soft, nondistended, nontender. No palpable mass. No guarding. Positive Bowel sounds. Extremes: decreased edema bilateral lower extremes, no cyanosis no claudication normal pulses] Skin: Warm and dry, No rash. - Labs CBC & Chem 7: 03/15/22 05:26 03/15/22 05:26 Labs: Abnormal Lab Results - Last 24 Hours (Table) 03/14/22 03/14/22 03/14/22 Range/Units 11:08 12:22 15:00 RBC (3.80-5.40) m/uL Hgb (11.4-16.0) gm/dL Hct (34.0-46.0) % MCH (25.0-35.0) pg MCHC (31.0-37.0) g/dL RDW (11.5-15.5) % Lymphocytes # (1.0-4.8) k/uL Sodium 136 L (137-145) mmol/L Chloride 95 L (98-107) mmol/L BUN 36 H (7-17) mg/dL Creatinine 1.35 H (0.52-1.04) mg/dL Glucose 146 H (74-99) mg/dL POC Glucose (mg/dL) 171 H (70-110) mg/dL Magnesium 2.7 H (1.6-2.3) mg/dL Iron 22 L (50-170) ug/dL Transferrin 414.0 H (204.0-354.0) mg/dL Urine Glucose (UA) 4+ H (Negative) Urine Ketones Trace H (Negative) Urine Nitrite Positive H (Negative) Ur Leukocyte Esterase Large H (Negative) Urine Bacteria Occasional H (None) /hpf Urine Mucus Rare H (None) /hpf 03/14/22 03/14/22 03/15/22 Range/Units 17:01 19:51 05:26 RBC (3.80-5.40) m/uL Hgb (11.4-16.0) gm/dL Hct (34.0-46.0) % MCH (25.0-35.0) pg MCHC (31.0-37.0) g/dL RDW (11.5-15.5) % Lymphocytes # (1.0-4.8) k/uL Sodium 136 L (137-145) mmol/L Chloride 96 L (98-107) mmol/L BUN 46 H (7-17) mg/dL Creatinine 1.33 H (0.52-1.04) mg/dL Glucose 174 H (74-99) mg/dL POC Glucose (mg/dL) 201 H 237 H (70-110) mg/dL Magnesium 2.6 H (1.6-2.3) mg/dL Iron (50-170) ug/dL Transferrin (204.0-354.0) mg/dL Urine Glucose (UA) (Negative) Urine Ketones (Negative) Urine Nitrite (Negative) Ur Leukocyte Esterase (Negative) Urine Bacteria (None) /hpf Urine Mucus (None) /hpf 03/15/22 03/15/22 Range/Units 05:26 06:48 RBC 3.43 L (3.80-5.40) m/uL Hgb 8.6 L (11.4-16.0) gm/dL Hct 29.0 L (34.0-46.0) % MCH 24.9 L (25.0-35.0) pg MCHC 29.5 L (31.0-37.0) g/dL RDW 16.4 H (11.5-15.5) % Lymphocytes # 0.8 L (1.0-4.8) k/uL Sodium (137-145) mmol/L Chloride (98-107) mmol/L BUN (7-17) mg/dL Creatinine (0.52-1.04) mg/dL Glucose (74-99) mg/dL POC Glucose (mg/dL) 162 H (70-110) mg/dL Magnesium (1.6-2.3) mg/dL Iron (50-170) ug/dL Transferrin (204.0-354.0) mg/dL Urine Glucose (UA) (Negative) Urine Ketones (Negative) Urine Nitrite (Negative) Ur Leukocyte Esterase (Negative) Urine Bacteria (None) /hpf Urine Mucus (None) /hpf Assessment and Plan Assessment: (1) Acute on chronic diastolic (congestive) heart failure Current Visit: Yes Status: Acute Code(s): I50.33 - ACUTE ON CHRONIC DIASTOLIC (CONGESTIVE) HEART FAILURE SNOMED Code(s): 542213986 (2) Acute hypoxic respiratory failure secondary all the above (3) acute renal failure, secondary to ATN related to cardiorenal syndrome (4) acute on chronic anemia, etiology unclear, iron studies ordered (5)HIstory of chronic obstructive pulmonary disease (6) Type 2 diabetes mellitus, A1c 5.8 Current Visit: Yes Status: Acute Code(s): E11.9 - TYPE 2 DIABETES MELLITUS WITHOUT COMPLICATIONS SNOMED Code(s): 743584942 (7) CAD, history of stenting (8) Hypertension Current Visit: No Status: Acute Code(s): I10 - ESSENTIAL (PRIMARY) HYPERTENSION SNOMED Code(s): 31156977 (8) morbid obesity, BMI 44.4 (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 coli (15) moderate aortic stenosis (16) moderate pulmonary hypertension Plan: Continue on current medication regime ,monitoring and symptomatic treatment. Diuresing on Lasix IV push-dose decreased. Fluid restrictions. Close monitoring of renal function, electrolytes. Maintain nebulized bronchodilators, IV steroids. Echo pending. The impression and plan of care has been dictated as directed. : I performed a history and examination of this patient, discussed the same with the dictator. I agree with the dictator's note ,documented as a scribe. Any additional findings or plans will be noted.
[2022-03-15 16:29] LABS: Glucose,Whole Blood 182 mg/dL (70-110)
[2022-03-15] MEDS: metFORMIN 500 MG TAB PO SCH ×2 (17:37→22:08)
[2022-03-15] MEDS: ATORVASTATIN 40 MG TAB PO SCH (22:09)
[2022-03-15 22:10] LABS: Glucose,Whole Blood 225 mg/dL (70-110)
[2022-03-15] MEDS: AMITRIPTYLINE HCL 50 MG TAB PO SCH (22:34)
[2022-03-16] MEDS: methylPREDNISolone SOD SUCCI 125 MG/2 ML VIAL IV SCH ×3 (05:33→19:01)
[2022-03-16 06:43] LABS: Glucose,Whole Blood 195 mg/dL (70-110)
[2022-03-16 07:04] LABS: African American GFR (CKD) 31 (>60 ml/min/1.73 sqM); Anion Gap 15 mmol/L; Blood Urea Nitrogen 58 mg/dL (7-17); Calcium 8.3 mg/dL (8.4-10.2); Carbon Dioxide 25 mmol/L (22-30); Chloride 92 mmol/L (98-107); Glucose 171 mg/dL (74-99); Magnesium 2.7 mg/dL (1.6-2.3); Non-African American GFR(CKD) 27 (>60 ml/min/1.73 sqM); Potassium 4.9 mmol/L (3.5-5.1); Sodium 132 mmol/L (137-145)
[2022-03-16] MEDS: IPRATROPIUM-ALBUTEROL 3 ML NEB INHALATION SCH ×4 (07:55→20:44)
[2022-03-16] MEDS: SYMBICORT 160-4.5 MCG INHALER INHALATION SCH ×2 (07:55→20:45)
[2022-03-16] MEDS: INSULIN ASPART (NovoLOG) 100 UNIT/ML VIAL SQ SCH ×3 (08:27→16:39)
[2022-03-16] MEDS: METOPROLOL TARTRATE 50 MG TAB PO SCH ×2 (08:28→21:40)
[2022-03-16] MEDS: GABAPENTIN 300 MG CAP PO SCH ×3 (08:28→21:41)
[2022-03-16] MEDS: HYDROcodone/APAP 5-325MG 1 EACH TAB PO SCH ×3 (08:28→21:41)
[2022-03-16] MEDS: APIXABAN 2.5 MG TABLET PO SCH ×2 (08:29→21:40)
[2022-03-16] MEDS: PIOGLITAZONE 30 MG TAB PO SCH (08:29)
[2022-03-16] MEDS: FUROSEMIDE 10 MG/ML 4 ML VIAL IV SCH (08:29)
[2022-03-16] MEDS: LEVOTHYROXINE 50 MCG TAB PO SCH (08:29)
[2022-03-16] MEDS: CYANOCOBALAMIN 500 MCG TAB PO SCH (08:29)
[2022-03-16] MEDS: SODIUM FERRIC GLUCONAT-SUCROSE 125 MG in SODIUM CHLORIDE 0.9% 100 ML IVPB SCH (08:46)
--- NOTE | 2022-03-16 09:28 | P.PN ---
Subjective Progress Note Date: 03/16/22 HISTORY OF PRESENT ILLNESS: This is a 86-year-old female with a past medical history significant for coronary artery disease with previous stenting, paroxysmal atrial fibrillation, aortic stenosis, obstructive sleep apnea, hypertension, hyperlipidemia, diabetes, and former nicotine dependence. Patient follows in the office with Dr. Case. We have been asked to see the patient in consultation for CHF and aortic stenosis. Patient examined at the bedside. Patient presented to the hospital with a chief complaint of shortness of breath and increased lower extremity edema. She was started on IV lasix. She reports improvement in her breathing this morning. She denies chest pain or pressure. Denies dizziness or lightheadedness. Vital signs are stable. * EKG reveals sinus mechanism with no signs of acute ischemia. * Chest xray cardiomegaly, pulmonary vascular congestion and bilateral pleural effusions. Superimposed infectious process is not excluded * Laboratory data: WBC 6.2. Hemoglobin 8.6. Platelet count 348. Sodium 136. Potassium 4.6. BUN 46. Creatinine 1.33. Troponin negative 1. ProBNP 2420. * Current home cardiac medications include Eliquis 2.5 mg twice a day, Lipitor 40 mg at night, Jardiance 10mg daily, Lasix 40 mg daily, metoprolol tartrate 50 mg twice a day, lisinopril 10 mg twice a day * Most recent echocardiogram obtained in September 2021 revealed ejection fraction 55-60%, moderate aortic stenosis, mild MR, mild TR, moderate pulmonary hypertension * Cardiac catheterization history: September 2021 with successful stenting of the obtuse marginal branch 1, proximal LAD, and mid LAD 03/16/2022 Patient examined this morning at the bedside. Patient denies chest pain or pressure. Denies SOB. She remains on IV lasix. Creatinine today 1.73. Blood pressures are on the soft side. Dr. Dorado reviewed echo with no significant changes in aortic valve. However, report is not crossing over into EMR. PHYSICAL EXAM: VITAL SIGNS: Reviewed. GENERAL: Well-developed in no acute distress. HEENT: Head is normocephalic. Pupils are equal, round. Sclerae anicteric. Mucous membranes of the mouth are moist. Neck supple. No JVD or thyromegaly LUNGS: Respirations even and unlabored. Lungs diminished to auscultation bilaterally. HEART: Regular rate and rhythm. S1 and S2 heard. Systolic murmur noted. ABDOMEN: Soft. Nondistended. Nontender. EXTREMITIES: Normal range of motion. No clubbing or cyanosis. Peripheral pulses intact. Bilateral nonpitting lower extremity edema present. NEUROLOGIC: Awake and alert. Oriented x 3. ASSESSMENT: Shortness of breath Acute on chronic congestive heart failure with preserved EF Coronary artery disease with previous stenting Paroxysmal atrial fibrillation Moderate aortic stenosis Obstructive sleep apnea COPD Anemia Hypertension Hyperlipidemia Diabetes Former nicotine dependence PLAN: 2D echo reviewed by Dr. Dorado. Patient with moderate . Not a candidate at this time for TAVR. May continue to be evaluated in the outpatient setting with Dr. Case with possible RICH outpatient. Discontinue IV lasix. Monitor kidney function. Possibly resume oral dosing tomorrow pending kidney function Decrease lisinopril to 10 mg daily at noon time. Hold for systolic blood pressure less than 90. Continue additional home cardiac medications Further recommendations pending patient course Nurse practitioner note has been reviewed by physician. Signing provider agrees with the documented findings, assessment, and plan of care. Objective - Vital Signs Vital signs: Vital Signs Temp 97.6 F 03/16/22 07:36 Pulse 64 03/16/22 08:07 Resp 16 03/16/22 07:36 BP 109/60 03/16/22 07:36 Pulse Ox 95 03/16/22 07:58 FiO2 Intake & Output 03/15/22 03/16/22 03/16/22 18:59 06:59 18:59 Intake Total 460 100 Output Total 600 1100 Balance -140 -1000 Weight 112 kg Intake: Intake, IV Titration 100 Amount Sodium Ferric Gluconat- 100 Sucrose 125 mg In Sodium Chloride 0.9% 100 ml @ 100 mls/hr IVPB DAILY [facility] Rx#:[id number] Oral 360 100 Output: Urine 600 1100 Other: Voiding Method External Catheter External Catheter # Voids 1 - Labs CBC & Chem 7: 03/15/22 05:26 03/16/22 06:11 Labs: Abnormal Lab Results - Last 24 Hours (Table) 03/15/22 03/15/22 03/15/22 Range/Units 11:08 16:27 22:09 Sodium (137-145) mmol/L Chloride (98-107) mmol/L BUN (7-17) mg/dL Creatinine (0.52-1.04) mg/dL Glucose (74-99) mg/dL POC Glucose (mg/dL) 241 H 182 H 225 H (70-110) mg/dL Calcium (8.4-10.2) mg/dL Magnesium (1.6-2.3) mg/dL 03/16/22 03/16/22 Range/Units 06:11 06:42 Sodium 132 L (137-145) mmol/L Chloride 92 L (98-107) mmol/L BUN 58 H (7-17) mg/dL Creatinine 1.73 H (0.52-1.04) mg/dL Glucose 171 H (74-99) mg/dL POC Glucose (mg/dL) 195 H (70-110) mg/dL Calcium 8.3 L (8.4-10.2) mg/dL Magnesium 2.7 H (1.6-2.3) mg/dL
--- NOTE | 2022-03-16 09:56 | P.PN ---
Subjective Progress Note Date: 03/16/22 Principal diagnosis: Shortness of breath. This is a very pleasant 86-year-old morbidly obese female patient, quite debilitated in a wheelchair, known to have COPD/asthma maintained Trelegy and albuterol in the outpatient setting, former smoker, CHF with diastolic failure, coronary artery disease with previous multi coronary artery stenting and diabetes mellitus. The patient has been fully vaccinated for COVID 19. She had been admitted for CHF/COPD exacerbations from December 09 through 12/13/2021. The patient comes in to the hospital because of worsening shortness of breath. She has also some increase in lower extremity edema. She has exertional dyspnea. Minimal cough. No significant sputum production. No fever or chills. No nausea vomiting or emesis. No altered mentation. Chest x-ray reveals cardiomegaly, pulmonary vascular congestion and bilateral pleural effusions. White count 6.1. Hemoglobin 8.8. Sodium 136. Potassium 5.1. BUN 34. Creatinine 1.42. Glucose 172. Troponin negative times one. ProBNP 2420. She's been initiated and DuoNeb inhalations, Symbicort, IV site Medrol, IV diuretics. She is seen today in consultation on the regular medical floor. She is resting comfortably in bed. Awake and alert in no acute distress. Maintaining O2 saturations in the 90s on 2 L/m per nasal cannula. She's afebrile. Hemodynamically stable. Making adequate urine output. The patient is seen today 03/15/2022 in follow-up on the regular medical floor. She is currently resting comfortably in bed. Awake and alert in no acute distress. Breathing a bit easier today compared to yesterday. Maintaining O2 saturations up to 100% on 2 L/m per nasal cannula. Afebrile. Hemodynamically stable. White count 6.2. Hemoglobin 8.6. Sodium 136. Potassium 4.6. Bicarb 27. BUN 46. Creatinine 1.33. Glucose 174. Pro-calcitonin 0.08. She is continued on DuoNeb inhalations, Symbicort, IV Solu-Medrol. Remains on IV diuretics. Currently in a -1.4 L balance. Anticoagulated with Eliquis. Progress note dated 03/16/2022. The patient's apparently doing much better. Currently, she's not receiving any supplemental oxygen, and also is not receiving any IV fluids. Her lower extremity edema is much better, and she states that she's breathing much easier. The nurses have wrapped her lower extremities. Laboratory data today includes a sodium 132, S in for 0.9, oriented 92, CO2 25, anion gap 15, BUN 58, and creatinine 1.73. Calcium is 8.3 with a magnesium of 2.7. Objective - Vital Signs Vital signs: Vital Signs Temp 97.6 F 03/16/22 07:36 Pulse 64 03/16/22 08:07 Resp 16 03/16/22 07:36 BP 109/60 03/16/22 07:36 Pulse Ox 95 03/16/22 07:58 FiO2 Intake & Output 03/15/22 03/16/22 03/16/22 18:59 06:59 18:59 Intake Total 460 100 Output Total 600 1100 Balance -140 -1000 Weight 112 kg Intake: Intake, IV Titration 100 Amount Sodium Ferric Gluconat- 100 Sucrose 125 mg In Sodium Chloride 0.9% 100 ml @ 100 mls/hr IVPB DAILY [facility] Rx#:[id number] Oral 360 100 Output: Urine 600 1100 Other: Voiding Method External Catheter External Catheter # Voids 1 - Exam No acute distress, oriented 3. No respiratory distress. Not on any supplemental oxygen. HEENT examination is grossly unremarkable. Neck supple. Full range of motion. No adenopathy thyromegaly or neck vein distention. Cardiovascular examination reveals regular rhythm rate. S1-S2 normal. No S3 or S4. No discernible murmur noted. Heart sounds are distant. Heart rate 64 bpm. Lungs reveal bibasilar crackles. No rhonchi. No wheezes. Saturations are in the mid 90s on room air. Abdomen soft but obese. Bowel sounds are noted. No masses or tenderness. Extremities are intact. No cyanosis or clubbing. Mild edema noted. Edema has improved. Skin is without rash or lesion. Neurologic examination is brief but nonfocal. - Labs CBC & Chem 7: 03/15/22 05:26 03/16/22 06:11 Labs: Abnormal Lab Results - Last 24 Hours (Table) 03/15/22 03/15/22 03/15/22 Range/Units 11:08 16:27 22:09 Sodium (137-145) mmol/L Chloride (98-107) mmol/L BUN (7-17) mg/dL Creatinine (0.52-1.04) mg/dL Glucose (74-99) mg/dL POC Glucose (mg/dL) 241 H 182 H 225 H (70-110) mg/dL Calcium (8.4-10.2) mg/dL Magnesium (1.6-2.3) mg/dL 03/16/22 03/16/22 Range/Units 06:11 06:42 Sodium 132 L (137-145) mmol/L Chloride 92 L (98-107) mmol/L BUN 58 H (7-17) mg/dL Creatinine 1.73 H (0.52-1.04) mg/dL Glucose 171 H (74-99) mg/dL POC Glucose (mg/dL) 195 H (70-110) mg/dL Calcium 8.3 L (8.4-10.2) mg/dL Magnesium 2.7 H (1.6-2.3) mg/dL Assessment and Plan Assessment: Acute hypoxemic respiratory failure secondary to an acute exacerbation of diastolic congestive heart failure. Acute on chronic anemia. Acute renal failure. History of chronic obstructive pulmonary disease secondary to a remote history of chronic tobacco dependence. Currently on Trelegy and albuterol in the outpatient setting. Previous history of urinary tract infection secondary to Klebsiella pneumoniae and E. coli. Morbid obesity. BMI 43.5 kg per metered squared. Diabetes mellitus, type II. CAD and previous stenting. Hyperlipidemia. Osteoarthritis. History of hypertension. Chronic back pain with previous laminectomy and decompression involving the lumbosacral spine. Chronic neck pain. Plan: Plan dated 03/16/2022. The patient is doing much better. She's not requiring any supplemental oxygen. She's not receiving any IV fluids. She continues on diuretics. She also continues on bronchodilators. We will continue to follow the patient. Overall prognosis remains guarded. No additional recommendations are made at this time. Time with Patient: Less than 30
--- NOTE | 2022-03-16 10:54 | P.PN ---
Subjective Patient is seen in follow-up for acute kidney injury. Renal function worsened from diuresis. Dyspnea and edema both improved. Good urine output. On room air. Blood pressure stable. No vomiting or diarrhea. Vital signs are stable. General: Awake. No acute distress. HEENT: Head exam is unremarkable. LUNGS: Breath sounds decreased. HEART: Rate and Rhythm are regular. ABDOMEN: Soft, no distention. EXTREMITITES: e tracedema. Objective - Vital Signs Vital signs: Vital Signs Temp 97.6 F 03/16/22 07:36 Pulse 64 03/16/22 08:07 Resp 16 03/16/22 07:36 BP 109/60 03/16/22 07:36 Pulse Ox 95 03/16/22 07:58 FiO2 Intake & Output 03/15/22 03/16/22 03/16/22 18:59 06:59 18:59 Intake Total 460 100 Output Total 600 1100 Balance -140 -1000 Weight 112 kg Intake: Intake, IV Titration 100 Amount Sodium Ferric Gluconat- 100 Sucrose 125 mg In Sodium Chloride 0.9% 100 ml @ 100 mls/hr IVPB DAILY [facility] Rx#:[id number] Oral 360 100 Output: Urine 600 1100 Other: Voiding Method External Catheter External Catheter # Voids 1 - Labs CBC & Chem 7: 03/15/22 05:26 03/16/22 06:11 Labs: Abnormal Lab Results - Last 24 Hours (Table) 03/15/22 03/15/22 03/15/22 Range/Units 11:08 16:27 22:09 Sodium (137-145) mmol/L Chloride (98-107) mmol/L BUN (7-17) mg/dL Creatinine (0.52-1.04) mg/dL Glucose (74-99) mg/dL POC Glucose (mg/dL) 241 H 182 H 225 H (70-110) mg/dL Calcium (8.4-10.2) mg/dL Magnesium (1.6-2.3) mg/dL 03/16/22 03/16/22 Range/Units 06:11 06:42 Sodium 132 L (137-145) mmol/L Chloride 92 L (98-107) mmol/L BUN 58 H (7-17) mg/dL Creatinine 1.73 H (0.52-1.04) mg/dL Glucose 171 H (74-99) mg/dL POC Glucose (mg/dL) 195 H (70-110) mg/dL Calcium 8.3 L (8.4-10.2) mg/dL Magnesium 2.7 H (1.6-2.3) mg/dL Assessment and Plan Plan: Assessment: 1. Acute kidney injury secondary to ATN secondary to cardiorenal syndrome. Creatinine 1.42 admission and was down to 1.33 yesterday - 1.73 today. No proteinuria on UA. Ultrasound from November 2021 showed no evidence of hydronephrosis. Creatinine was 0.98 in November 2021. 2. Volume overload. Improving with diuresis. 3. Acute on chronic diastolic CHF and moderate pulmonary hypertension. Moderate aortic stenosis. 4. Diabetes mellitus. 5. Anemia. Iron deficiency noted. Plan: Stop IV Lasix. Add oral Lasix 40 mg once daily. Low-salt diet. 1200 mL fluid restriction. Maintain IV iron. Strict I's and O's. Avoid nephrotoxins. Continue to monitor renal function and urine output. Dose of lisinopril decreased. Hold for systolic blood pressure less than 110.
[2022-03-16 11:13] LABS: Glucose,Whole Blood 184 mg/dL (70-110)
[2022-03-16] MEDS: lisinopriL 10 MG TAB PO SCH (12:52)
[2022-03-16 16:21] LABS: Glucose,Whole Blood 213 mg/dL (70-110)
[2022-03-16] MEDS: ATORVASTATIN 40 MG TAB PO SCH (21:40)
[2022-03-16] MEDS: AMITRIPTYLINE HCL 50 MG TAB PO SCH (21:41)
[2022-03-16 23:53] LABS: Glucose,Whole Blood 255 mg/dL (70-110)
[2022-03-17] MEDS: methylPREDNISolone SOD SUCCI 125 MG/2 ML VIAL IV SCH ×4 (01:11→18:31)
[2022-03-17] MEDS: INSULIN ASPART (NovoLOG) 100 UNIT/ML VIAL SQ SCH ×5 (01:11→21:42)
[2022-03-17 06:49] LABS: African American GFR (CKD) 27 (>60 ml/min/1.73 sqM); Anion Gap 10 mmol/L; Blood Urea Nitrogen 76 mg/dL (7-17); Calcium 8.2 mg/dL (8.4-10.2); Carbon Dioxide 26 mmol/L (22-30); Chloride 93 mmol/L (98-107); Glucose 196 mg/dL (74-99); Magnesium 2.8 mg/dL (1.6-2.3); Non-African American GFR(CKD) 23 (>60 ml/min/1.73 sqM); Potassium 5.4 mmol/L (3.5-5.1); Sodium 129 mmol/L (137-145)
[2022-03-17 07:23] LABS: Glucose,Whole Blood 196 mg/dL (70-110)
[2022-03-17] MEDS: HYDROcodone/APAP 5-325MG 1 EACH TAB PO SCH ×3 (07:45→21:43)
[2022-03-17] MEDS: CYANOCOBALAMIN 500 MCG TAB PO SCH (07:45)
[2022-03-17] MEDS: APIXABAN 2.5 MG TABLET PO SCH ×2 (07:46→21:42)
[2022-03-17] MEDS: GABAPENTIN 300 MG CAP PO SCH ×3 (07:46→21:42)
[2022-03-17] MEDS: LEVOTHYROXINE 50 MCG TAB PO SCH (07:46)
[2022-03-17] MEDS: FUROSEMIDE 40 MG TAB PO SCH (07:46)
[2022-03-17] MEDS: PIOGLITAZONE 30 MG TAB PO SCH (07:47)
[2022-03-17] MEDS: METOPROLOL TARTRATE 50 MG TAB PO SCH ×2 (07:47→21:42)
[2022-03-17] MEDS: IPRATROPIUM-ALBUTEROL 3 ML NEB INHALATION SCH ×4 (08:13→21:06)
[2022-03-17] MEDS: SYMBICORT 160-4.5 MCG INHALER INHALATION SCH ×2 (08:13→21:06)
[2022-03-17] MEDS: SODIUM FERRIC GLUCONAT-SUCROSE 125 MG in SODIUM CHLORIDE 0.9% 100 ML IVPB SCH (09:21)
[2022-03-17] MEDS: lisinopriL 10 MG TAB PO SCH (09:27)
[2022-03-17] MEDS ORDERED: SODIUM ZIRCONIUM CYCLOSILICATE 10 GM PACKET PO ONE (09:28)
[2022-03-17] MEDS ORDERED: TOLVAPTAN 15 MG 1/2 TABLET PO ONE (09:28)
--- NOTE | 2022-03-17 09:50 | P.PN ---
Subjective Progress Note Date: 03/17/22 HISTORY OF PRESENT ILLNESS: This is a 86-year-old female with a past medical history significant for coronary artery disease with previous stenting, paroxysmal atrial fibrillation, aortic stenosis, obstructive sleep apnea, hypertension, hyperlipidemia, diabetes, and former nicotine dependence. Patient follows in the office with Dr. Case. We have been asked to see the patient in consultation for CHF and aortic stenosis. Patient examined at the bedside. Patient presented to the hospital with a chief complaint of shortness of breath and increased lower extremity edema. She was started on IV lasix. She reports improvement in her breathing this morning. She denies chest pain or pressure. Denies dizziness or lightheadedness. Vital signs are stable. * EKG reveals sinus mechanism with no signs of acute ischemia. * Chest xray cardiomegaly, pulmonary vascular congestion and bilateral pleural effusions. Superimposed infectious process is not excluded * Laboratory data: WBC 6.2. Hemoglobin 8.6. Platelet count 348. Sodium 136. Potassium 4.6. BUN 46. Creatinine 1.33. Troponin negative 1. ProBNP 2420. * Current home cardiac medications include Eliquis 2.5 mg twice a day, Lipitor 40 mg at night, Jardiance 10mg daily, Lasix 40 mg daily, metoprolol tartrate 50 mg twice a day, lisinopril 10 mg twice a day * Most recent echocardiogram obtained in September 2021 revealed ejection fraction 55-60%, moderate aortic stenosis, mild MR, mild TR, moderate pulmonary hypertension * Cardiac catheterization history: September 2021 with successful stenting of the obtuse marginal branch 1, proximal LAD, and mid LAD 03/16/2022 Patient examined this morning at the bedside. Patient denies chest pain or pressure. Denies SOB. She remains on IV lasix. Creatinine today 1.73. Blood pressures are on the soft side. Dr. Dorado reviewed echo with no significant changes in aortic valve. However, report is not crossing over into EMR. 03/17/2022 Patient examined this made the bedside. Patient denies chest pain or pressure. She denies shortness of breath. Creatinine today 1.90. She has been resumed on oral Lasix per nephrology. Vital signs are stable. PHYSICAL EXAM: VITAL SIGNS: Reviewed. GENERAL: Well-developed in no acute distress. HEENT: Head is normocephalic. Pupils are equal, round. Sclerae anicteric. Mucous membranes of the mouth are moist. Neck supple. No JVD or thyromegaly LUNGS: Respirations even and unlabored. Lungs diminished to auscultation bilaterally. HEART: Regular rate and rhythm. S1 and S2 heard. Systolic murmur noted. ABDOMEN: Soft. Nondistended. Nontender. EXTREMITIES: Normal range of motion. No clubbing or cyanosis. Peripheral pulses intact. Bilateral nonpitting lower extremity edema present. NEUROLOGIC: Awake and alert. Oriented x 3. ASSESSMENT: Shortness of breath Acute on chronic congestive heart failure with preserved EF Coronary artery disease with previous stenting Paroxysmal atrial fibrillation Moderate aortic stenosis Obstructive sleep apnea COPD Anemia Hypertension Hyperlipidemia Diabetes Former nicotine dependence PLAN: 2D echo reviewed by Dr. Dorado. Patient with moderate . Not a candidate at this time for TAVR. May continue to be evaluated in the outpatient setting with Dr. Case with possible RICH outpatient. Patient has been resumed on oral Lasix per nephrology Continue additional home cardiac medications We will sign off. Please reconsult if needed. Nurse practitioner note has been reviewed by physician. Signing provider agrees with the documented findings, assessment, and plan of care. Objective - Vital Signs Vital signs: Vital Signs Temp 98.0 F 03/17/22 06:51 Pulse 97 03/17/22 09:00 Resp 16 03/17/22 09:00 BP 109/63 03/17/22 06:51 Pulse Ox 95 03/17/22 08:15 FiO2 Intake & Output 03/16/22 03/17/22 03/17/22 18:59 06:59 18:59 Intake Total 460 Output Total 400 Balance 460 -400 Intake: Intake, IV Titration 100 Amount Sodium Ferric Gluconat- 100 Sucrose 125 mg In Sodium Chloride 0.9% 100 ml @ 100 mls/hr IVPB DAILY [facility] Rx#:[id number] Oral 360 Output: Drainage 100 Lower Back 100 Urine 300 Other: Voiding Method External Catheter Incontinent - Labs CBC & Chem 7: 03/15/22 05:26 03/17/22 06:10 Labs: Abnormal Lab Results - Last 24 Hours (Table) 03/16/22 03/16/22 03/16/22 Range/Units 11:11 16:20 23:51 Sodium (137-145) mmol/L Potassium (3.5-5.1) mmol/L Chloride (98-107) mmol/L BUN (7-17) mg/dL Creatinine (0.52-1.04) mg/dL Glucose (74-99) mg/dL POC Glucose (mg/dL) 184 H 213 H 255 H (70-110) mg/dL Calcium (8.4-10.2) mg/dL Magnesium (1.6-2.3) mg/dL 03/17/22 03/17/22 Range/Units 06:10 07:22 Sodium 129 L (137-145) mmol/L Potassium 5.4 H (3.5-5.1) mmol/L Chloride 93 L (98-107) mmol/L BUN 76 H (7-17) mg/dL Creatinine 1.95 H (0.52-1.04) mg/dL Glucose 196 H (74-99) mg/dL POC Glucose (mg/dL) 196 H (70-110) mg/dL Calcium 8.2 L (8.4-10.2) mg/dL Magnesium 2.8 H (1.6-2.3) mg/dL
--- NOTE | 2022-03-17 09:55 | ECHOF ---
MEASUREMENTS 2D ECHO LV Diastolic Diameter PLAX 4.5 cm 4.2 - 5.9 / 3.9 - 5.3 cm RV Internal Dim ED PLAX 2.3 cm LV Systolic Diameter PLAX 3.2 cm LVOT Diameter 1.8 cm IVS Diastolic Thickness 1.3 cm 0.6 - 1.0 / 0.6 - 0.9 cm LA Systolic Diameter LX 3.2 cm 3.0 - 4.0 / 2.7 - 3.8 cm LVPW Diastolic Thickness 1.3 cm 0.6 - 1.0 / 0.6 - 0.9 cm LA Volume 57.0 cm 18 - 58 / 22 - 52 cm LV Relative Wall Thickness 0.6 M-MODE Aortic Root Diameter MM 2.9 cm MV E Point Septal Separation 1.3 cm DOPPLER AV Peak Velocity 331.8 cm/s MV Mean Velocity 122.7 cm/s AV Peak Gradient 44.0 mmHg MV Mean Gradient 7.4 mmHg AV Mean Velocity 236.5 cm/s MV Velocity Time Integral 31.1 cm AV Mean Gradient 24.7 mmHg MV Area PHT 3.6 cm AV Velocity Time Integral 70.8 cm Mitral E Point Velocity 135.9 cm/s LVOT Peak Velocity 173.0 cm/s Mitral A Point Velocity 158.0 cm/s LVOT Peak Gradient 12.0 mmHg Mitral E to A Ratio 0.9 AV Area Cont Eq pk 1.4 cm MV Deceleration Time 211.5 ms MV Peak Velocity 201.4 cm/s MV E' Velocity 5.4 cm/s MV Peak Gradient 16.2 mmHg Mitral E to MV E' Ratio 24.9 FINDINGS Left Ventricle Left ventricular ejection fraction is estimated at 60-65 %. Left ventricular cavity size normal. Mild concentric left ventricular hypertrophy. Right Ventricle Normal right ventricular size and function. Unable to estimate the right ventricular systolic pressure no TR jet. Right Atrium Normal right atrial size. Left Atrium Mildly increased left atrial volume. Mildly increased left atrial area. No evidence for an atrial septal defect. Mitral Valve Mitral valve thickened. Mitral annular calcification. Mild mitral stenosis ith mean gradient of 7.4 mmGg. Aortic Valve Diffuse thickening of the aortic valve cusps with reduced excursion. Moderate aortic stenosis with a peak gradient of 44 mmHg and a mean gradient of 25 mmHg. Tricuspid Valve Structurally normal tricuspid valve Pulmonic Valve Pulmonic valve not well visualized. Pericardium Normal pericardium. No pericardial effusion. Aorta Normal size aortic root and proximal ascending aorta. Vessels Greater than 50% respiratory variation in the dimensions of the inferior vena cava. CONCLUSIONS LVH with presered systolic function At least Moderate aortic stenosis with a peak gradient of 44 and a mean gradient of 25 mmHg. MTDD
--- NOTE | 2022-03-17 10:55 | P.PN ---
Subjective Progress Note Date: 03/17/22 Principal diagnosis: Shortness of breath. This is a very pleasant 86-year-old morbidly obese female patient, quite debilitated in a wheelchair, known to have COPD/asthma maintained Trelegy and albuterol in the outpatient setting, former smoker, CHF with diastolic failure, coronary artery disease with previous multi coronary artery stenting and diabetes mellitus. The patient has been fully vaccinated for COVID 19. She had been admitted for CHF/COPD exacerbations from December 09 through 12/13/2021. The patient comes in to the hospital because of worsening shortness of breath. She has also some increase in lower extremity edema. She has exertional dyspnea. Minimal cough. No significant sputum production. No fever or chills. No nausea vomiting or emesis. No altered mentation. Chest x-ray reveals cardiomegaly, pulmonary vascular congestion and bilateral pleural effusions. White count 6.1. Hemoglobin 8.8. Sodium 136. Potassium 5.1. BUN 34. Creatinine 1.42. Glucose 172. Troponin negative times one. ProBNP 2420. She's been initiated and DuoNeb inhalations, Symbicort, IV site Medrol, IV diuretics. She is seen today in consultation on the regular medical floor. She is resting comfortably in bed. Awake and alert in no acute distress. Maintaining O2 saturations in the 90s on 2 L/m per nasal cannula. She's afebrile. Hemodynamically stable. Making adequate urine output. The patient is seen today 03/15/2022 in follow-up on the regular medical floor. She is currently resting comfortably in bed. Awake and alert in no acute distress. Breathing a bit easier today compared to yesterday. Maintaining O2 saturations up to 100% on 2 L/m per nasal cannula. Afebrile. Hemodynamically stable. White count 6.2. Hemoglobin 8.6. Sodium 136. Potassium 4.6. Bicarb 27. BUN 46. Creatinine 1.33. Glucose 174. Pro-calcitonin 0.08. She is continued on DuoNeb inhalations, Symbicort, IV Solu-Medrol. Remains on IV diuretics. Currently in a -1.4 L balance. Anticoagulated with Eliquis. Progress note dated 03/16/2022. The patient's apparently doing much better. Currently, she's not receiving any supplemental oxygen, and also is not receiving any IV fluids. Her lower extremity edema is much better, and she states that she's breathing much easier. The nurses have wrapped her lower extremities. Laboratory data today includes a sodium 132, S in for 0.9, oriented 92, CO2 25, anion gap 15, BUN 58, and creatinine 1.73. Calcium is 8.3 with a magnesium of 2.7. Progress note dated 03/17/2022. The patient's doing much better. She'll be receiving an iron infusion today. She is currently on room air. She's not receiving any IV fluids. Her breathing is much improved. Her lower extremity edema is also very much improved. Sodium 129, potassium 5.4, chloride 93, CO2 26, anion gap 10, BUN 76, creatinine 1.95. Calcium is 8.2, and magnesium is 2.8. Objective - Vital Signs Vital signs: Vital Signs Temp 98.0 F 03/17/22 06:51 Pulse 97 03/17/22 09:00 Resp 16 03/17/22 09:00 BP 109/63 03/17/22 06:51 Pulse Ox 95 03/17/22 08:15 FiO2 Intake & Output 03/16/22 03/17/22 03/17/22 18:59 06:59 18:59 Intake Total 460 Output Total 400 Balance 460 -400 Intake: Intake, IV Titration 100 Amount Sodium Ferric Gluconat- 100 Sucrose 125 mg In Sodium Chloride 0.9% 100 ml @ 100 mls/hr IVPB DAILY [facility] Rx#:[id number] Oral 360 Output: Drainage 100 Lower Back 100 Urine 300 Other: Voiding Method External Catheter Incontinent - Exam No acute distress, oriented 3. No respiratory distress. Not on any supplemental oxygen. HEENT examination is grossly unremarkable. Neck supple. Full range of motion. No adenopathy thyromegaly or neck vein distention. Cardiovascular examination reveals regular rhythm rate. S1-S2 normal. No S3 or S4. No discernible murmur noted. Heart sounds are distant. Heart rate 97 bpm. Lungs reveal bibasilar crackles. No rhonchi. No wheezes. Saturations are 95% on room air. Abdomen soft but obese. Bowel sounds are noted. No masses or tenderness. Extremities are intact. No cyanosis or clubbing. Mild edema noted. Edema has improved. Lower extremities are wrapped with KAE bandages. Skin is without rash or lesion. Neurologic examination is brief but nonfocal. - Labs CBC & Chem 7: 03/15/22 05:26 03/17/22 06:10 Labs: Abnormal Lab Results - Last 24 Hours (Table) 03/16/22 03/16/22 03/16/22 Range/Units 11:11 16:20 23:51 Sodium (137-145) mmol/L Potassium (3.5-5.1) mmol/L Chloride (98-107) mmol/L BUN (7-17) mg/dL Creatinine (0.52-1.04) mg/dL Glucose (74-99) mg/dL POC Glucose (mg/dL) 184 H 213 H 255 H (70-110) mg/dL Calcium (8.4-10.2) mg/dL Magnesium (1.6-2.3) mg/dL 03/17/22 03/17/22 Range/Units 06:10 07:22 Sodium 129 L (137-145) mmol/L Potassium 5.4 H (3.5-5.1) mmol/L Chloride 93 L (98-107) mmol/L BUN 76 H (7-17) mg/dL Creatinine 1.95 H (0.52-1.04) mg/dL Glucose 196 H (74-99) mg/dL POC Glucose (mg/dL) 196 H (70-110) mg/dL Calcium 8.2 L (8.4-10.2) mg/dL Magnesium 2.8 H (1.6-2.3) mg/dL Assessment and Plan Assessment: Acute hypoxemic respiratory failure secondary to an acute exacerbation of diastolic congestive heart failure. Acute on chronic anemia. Acute renal failure. History of chronic obstructive pulmonary disease secondary to a remote history of chronic tobacco dependence. Currently on Trelegy and albuterol in the outpatient setting. Previous history of urinary tract infection secondary to Klebsiella pneumoniae and E. coli. Morbid obesity. BMI 43.5 kg per metered squared. Diabetes mellitus, type II. CAD and previous stenting. Hyperlipidemia. Osteoarthritis. History of hypertension. Chronic back pain with previous laminectomy and decompression involving the lumbosacral spine. Chronic neck pain. Plan: Plan dated 03/16/2022. The patient is doing much better. She's not requiring any supplemental oxygen. She's not receiving any IV fluids. She continues on diuretics. She also continues on bronchodilators. We will continue to follow the patient. Overall prognosis remains guarded. No additional recommendations are made at this time. Plan dated 03/17/2022. The patient's doing much better. The patient is not receiving any IV fluids. The patient is not requiring any supplemental oxygen. We will continue to follow the patient and make recommendations along the way. She is currently get ting an iron infusion. Overall prognosis remains guarded. The patient will need to make sure she weighs herself on a daily basis, and really reduces her salt intake. Time with Patient: Less than 30
--- NOTE | 2022-03-17 11:10 | P.PN ---
Subjective Patient is seen in follow-up for acute kidney injury. Renal function a little worse compared to yesterday. Dyspnea and edema both improved. Good urine output. On room air. Blood pressure stable. No vomiting or diarrhea. No active complaints. Vital signs are stable. General: Awake. No acute distress. HEENT: Head exam is unremarkable. LUNGS: Breath sounds decreased. HEART: Rate and Rhythm are regular. ABDOMEN: Soft, no distention. EXTREMITITES: Trace edema. Objective - Vital Signs Vital signs: Vital Signs Temp 98.0 F 03/17/22 06:51 Pulse 97 03/17/22 09:00 Resp 16 03/17/22 09:00 BP 109/63 03/17/22 06:51 Pulse Ox 95 03/17/22 08:15 FiO2 Intake & Output 03/16/22 03/17/22 03/17/22 18:59 06:59 18:59 Intake Total 460 Output Total 400 Balance 460 -400 Intake: Intake, IV Titration 100 Amount Sodium Ferric Gluconat- 100 Sucrose 125 mg In Sodium Chloride 0.9% 100 ml @ 100 mls/hr IVPB DAILY [facility] Rx#:[id number] Oral 360 Output: Drainage 100 Lower Back 100 Urine 300 Other: Voiding Method External Catheter Incontinent - Labs CBC & Chem 7: 03/15/22 05:26 03/17/22 06:10 Labs: Abnormal Lab Results - Last 24 Hours (Table) 03/16/22 03/16/22 03/16/22 Range/Units 11:11 16:20 23:51 Sodium (137-145) mmol/L Potassium (3.5-5.1) mmol/L Chloride (98-107) mmol/L BUN (7-17) mg/dL Creatinine (0.52-1.04) mg/dL Glucose (74-99) mg/dL POC Glucose (mg/dL) 184 H 213 H 255 H (70-110) mg/dL Calcium (8.4-10.2) mg/dL Magnesium (1.6-2.3) mg/dL 03/17/22 03/17/22 Range/Units 06:10 07:22 Sodium 129 L (137-145) mmol/L Potassium 5.4 H (3.5-5.1) mmol/L Chloride 93 L (98-107) mmol/L BUN 76 H (7-17) mg/dL Creatinine 1.95 H (0.52-1.04) mg/dL Glucose 196 H (74-99) mg/dL POC Glucose (mg/dL) 196 H (70-110) mg/dL Calcium 8.2 L (8.4-10.2) mg/dL Magnesium 2.8 H (1.6-2.3) mg/dL Assessment and Plan Plan: Assessment: 1. Acute kidney injury secondary to ATN secondary to cardiorenal syndrome. Creatinine 1.42 admission and was down to 1.33 yesterday - 1.95 today. No proteinuria on UA. Ultrasound from November 2021 showed no evidence of hydronephrosis. Creatinine was 0.98 in November 2021. 2. Volume overload. Improved with diuresis. 3. Acute on chronic diastolic CHF and moderate pulmonary hypertension. Moderate aortic stenosis. 4. Diabetes mellitus. 5. Anemia. Iron deficiency noted. 6. Hyponatremia secondary to acute kidney injury. 7. Hyperkalemia secondary to acute kidney injury, hyperglycemia and lisinopril. Plan: Maintain oral Lasix. Samsca 7.5 mg once today. Low-salt diet. 1200 mL fluid restriction. Maintain IV iron. Strict I's and O's. Avoid nephrotoxins. Continue to monitor renal function and urine output. DC lisinopril. Lokelma 10 g once today. Repeat BMP and magnesium level 2-3 days postdischarge. Follow up outpatient in 1 week
[2022-03-17 11:17] LABS: Glucose,Whole Blood 225 mg/dL (70-110)
--- NOTE | 2022-03-17 15:46 | P.PN ---
Subjective Progress Note Date: 03/16/22 H&P Date: 03/14/22 Chief Complaint: Dyspnea, leg edema This is an 86-year-old female recently admitted with similar presentation; acute COPD exacerbation, acute CHF exacerbation, acute hypoxic respiratory failure, acute renal failure and multiple other medical issues. On that prior admission cardiology had increased metoprolol, Paul placed on hold with diuretics as per nephrology. Reports today worsening dyspnea accompanied by a increased bilateral lower extremity edema. Denies chest pain, palpitations. Denies fever or chills. Denies cough. Denies nausea vomiting or diarrhea. Denies abdominal pain. Denies lightheadedness, dizziness or focal deficits. Chest x-ray reported cardiomegaly, pulmonary vascular congestion and bilateral pleural ef fusions. ProBNP 2420. Echo from 10/15/2021 reporting EF 55-60%, moderate aortic stenosis, moderate pulmonary hypertension, in a patient with known history of hypertension, hyperlipidemia, diabetes mellitus, N- STEMI , multiple stents Maintaining O2 sats in the high 90s on 4 L nasal cannula, recently titrated down to 2 L, O2 sat pending. EKG reported sinus rhythm, troponin less than 0.012. Afebrile, normal WBC, hemoglobin 8.8, platelets 3:15, sodium 136, potassium 5.1, BUN 34, creatinine 1.4 to, magnesium 2.9. Blood sugars controlled. 03/15/22 evaluated by cardiology, patient at this time not a candidate for TAVR. Echo completed, report pending. Diuresing well on Lasix IV push with 24-hour I&O reflecting a negative fluid balance. Dose decreased. Creatinine 1.33. Breathing improved, maintaining O2 sats in the high 90s to 100% on 2 L nasal cannula. Afebrile, normal WBC. 03/16/2022 continues on fluid restrictions. worsening renal function, BUN 58, creatinine up to 1.73. Maintaining O2 sats in the 90s on room air. Echo pending. Borderline hypotension. Denies chest pain, palpitations or increased shortness of breath. Maintaining O2 sats in the 90s on room air Objective - Vital Signs Vital signs: Vital Signs Temp 98.1 F 03/16/22 13:11 Pulse 72 03/16/22 13:11 Resp 16 03/16/22 13:11 BP 103/48 03/16/22 13:11 Pulse Ox 94 L 03/16/22 13:11 FiO2 Intake & Output 03/15/22 03/16/22 03/16/22 18:59 06:59 18:59 Intake Total 460 100 120 Output Total 600 1100 Balance -140 -1000 120 Weight 112 kg Intake: Intake, IV Titration 100 Amount Sodium Ferric Gluconat- 100 Sucrose 125 mg In Sodium Chloride 0.9% 100 ml @ 100 mls/hr IVPB DAILY [facility] Rx#:[id number] Oral 360 100 120 Output: Urine 600 1100 Other: Voiding Method External Catheter External Catheter # Voids 1 - Exam - Exam General: Awake, alert and oriented X 3, sitting up in chair,no acute distress. HEENT: [PERRL. EOMI. Neck: Supple, no JVD Cardiac: [Heart regular in rate and rhythm. No S3. No S4. Systolic murmur.] Lungs: Clear but diminished bilaterally, bibasilar crackles Abdomen: Soft, nondistended, nontender. No palpable mass. No guarding. Positive Bowel sounds. Extremes: decreased edema bilateral lower extremes, no cyanosis no claudication normal pulses] Skin: Warm and dry, No rash. - Labs CBC & Chem 7: 03/15/22 05:26 03/17/22 06:10 Labs: Abnormal Lab Results - Last 24 Hours (Table) 03/15/22 03/15/22 03/16/22 Range/Units 16:27 22:09 06:11 Sodium 132 L (137-145) mmol/L Chloride 92 L (98-107) mmol/L BUN 58 H (7-17) mg/dL Creatinine 1.73 H (0.52-1.04) mg/dL Glucose 171 H (74-99) mg/dL POC Glucose (mg/dL) 182 H 225 H (70-110) mg/dL Calcium 8.3 L (8.4-10.2) mg/dL Magnesium 2.7 H (1.6-2.3) mg/dL 03/16/22 03/16/22 Range/Units 06:42 11:11 Sodium (137-145) mmol/L Chloride (98-107) mmol/L BUN (7-17) mg/dL Creatinine (0.52-1.04) mg/dL Glucose (74-99) mg/dL POC Glucose (mg/dL) 195 H 184 H (70-110) mg/dL Calcium (8.4-10.2) mg/dL Magnesium (1.6-2.3) mg/dL Assessment and Plan Assessment: (1) Acute on chronic diastolic (congestive) heart failure Current Visit: Yes Status: Acute Code(s): I50.33 - ACUTE ON CHRONIC DIASTOLIC (CONGESTIVE) HEART FAILURE SNOMED Code(s): 359028591 (2) Acute hypoxic respiratory failure secondary all the above (3) acute renal failure, secondary to ATN related to cardiorenal syndrome (4) acute on chronic anemia, etiology unclear, iron studies ordered (5)HIstory of chronic obstructive pulmonary disease (6) Type 2 diabetes mellitus, A1c 5.8 Current Visit: Yes Status: Acute Code(s): E11.9 - TYPE 2 DIABETES MELLITUS WITHOUT COMPLICATIONS SNOMED Code(s): 318647188 (7) CAD, history of stenting (8) Hypertension Current Visit: No Status: Acute Code(s): I10 - ESSENTIAL (PRIMARY) HYPERTENSION SNOMED Code(s): 91554650 (8) morbid obesity, BMI 44.4 (9) [facility] prescription opiate use Current Visit: Yes Status: Acute Code(s): Z79.891 - HALF-WAY (CURRENT) USE OF OPIATE ANALGESIC SNOMED Code(s): 921168373 (10) Acquired hypothyroidism Current Visit: Yes Status: Acute Code(s): E03.9 - HYPOTHYROIDISM, UNSPECIFIED SNOMED Code(s): 861194309 (11) Debility Current Visit: Yes Status: Acute Code(s): R53.81 - OTHER MALAISE SNOMED Code(s): 03549574 (12) Chronic paroxysmal atrial fibrillation , on Eliquis, currently on hold secondary to anemia (13) chronic back pain, history of laminectomy and decompression (14) History of UTI secondary to Klebsiella pneumoniae and E. coli (15) moderate aortic stenosis (16) moderate pulmonary hypertension Plan: Continue on current medication regime ,monitoring and symptomatic treatment. Fluid restrictions. IV push diuretics converted to oral as per nephrology .Close monitoring of renal function, electrolytes. Maintain nebulized bronchodilators, IV steroids. Echo pending. PAUL inhibitor decreased, blood pressure soft. The impression and plan of care has been dictated as directed. : I performed a history and examination of this patient, discussed the same with the dictator. I agree with the dictator's note ,documented as a scribe. Any additional findings or plans will be noted.
--- NOTE | 2022-03-17 15:51 | P.PN ---
Subjective Progress Note Date: 03/17/22 H&P Date: 03/14/22 Chief Complaint: Dyspnea, leg edema This is an 86-year-old female recently admitted with similar presentation; acute COPD exacerbation, acute CHF exacerbation, acute hypoxic respiratory failure, acute renal failure and multiple other medical issues. On that prior admission cardiology had increased metoprolol, Paul placed on hold with diuretics as per nephrology. Reports today worsening dyspnea accompanied by a increased bilateral lower extremity edema. Denies chest pain, palpitations. Denies fever or chills. Denies cough. Denies nausea vomiting or diarrhea. Denies abdominal pain. Denies lightheadedness, dizziness or focal deficits. Chest x-ray reported cardiomegaly, pulmonary vascular congestion and bilateral pleural ef fusions. ProBNP 2420. Echo from 10/15/2021 reporting EF 55-60%, moderate aortic stenosis, moderate pulmonary hypertension, in a patient with known history of hypertension, hyperlipidemia, diabetes mellitus, N- STEMI , multiple stents Maintaining O2 sats in the high 90s on 4 L nasal cannula, recently titrated down to 2 L, O2 sat pending. EKG reported sinus rhythm, troponin less than 0.012. Afebrile, normal WBC, hemoglobin 8.8, platelets 3:15, sodium 136, potassium 5.1, BUN 34, creatinine 1.4 to, magnesium 2.9. Blood sugars controlled. 03/15/22 evaluated by cardiology, patient at this time not a candidate for TAVR. Echo completed, report pending. Diuresing well on Lasix IV push with 24-hour I&O reflecting a negative fluid balance. Dose decreased. Creatinine 1.33. Breathing improved, maintaining O2 sats in the high 90s to 100% on 2 L nasal cannula. Afebrile, normal WBC. 03/16/2022 continues on fluid restrictions. worsening renal function, BUN 58, creatinine up to 1.73. Maintaining O2 sats in the 90s on room air. Echo pending. Borderline hypotension. Denies chest pain, palpitations or increased shortness of breath. Maintaining O2 sats in the 90s on room air 03/17/2022 receiving IV iron .continued worsening renal function, BUN 76, creatinine 1.95. PAUL inhibitor discontinued, Lasix placed on hold. Samsca initiated. Continues maintaining O2 sats in the 90s on room air. Objective - Vital Signs Vital signs: Vital Signs Temp 97.6 F 03/17/22 11:56 Pulse 69 03/17/22 12:09 Resp 16 03/17/22 12:09 BP 97/61 03/17/22 11:56 Pulse Ox 96 03/17/22 11:56 FiO2 Intake & Output 03/16/22 03/17/22 03/17/22 18:59 06:59 18:59 Intake Total 460 Output Total 400 800 Balance 460 -400 -800 Intake: Intake, IV Titration 100 Amount Sodium Ferric Gluconat- 100 Sucrose 125 mg In Sodium Chloride 0.9% 100 ml @ 100 mls/hr IVPB DAILY [facility] Rx#:[id number] Oral 360 Output: Drainage 100 Lower Back 100 Urine 300 800 Other: Voiding Method External Catheter Incontinent - Exam - Exam General: Awake, alert and oriented X 3, sitting up in chair,no acute distress. HEENT: [PERRL. EOMI. Neck: Supple, no JVD Cardiac: [Heart regular in rate and rhythm. No S3. No S4. Systolic murmur.] Lungs: Clear but diminished bilaterally, bibasilar crackles Abdomen: Soft, nondistended, nontender. No palpable mass. No guarding. Positive Bowel sounds. Extremes: decreased edema bilateral lower extremes, no cyanosis no claudication normal pulses] Skin: Warm and dry, No rash. - Labs CBC & Chem 7: 03/15/22 05:26 03/17/22 06:10 Labs: Abnormal Lab Results - Last 24 Hours (Table) 03/16/22 03/16/22 03/17/22 Range/Units 16:20 23:51 06:10 Sodium 129 L (137-145) mmol/L Potassium 5.4 H (3.5-5.1) mmol/L Chloride 93 L (98-107) mmol/L BUN 76 H (7-17) mg/dL Creatinine 1.95 H (0.52-1.04) mg/dL Glucose 196 H (74-99) mg/dL POC Glucose (mg/dL) 213 H 255 H (70-110) mg/dL Calcium 8.2 L (8.4-10.2) mg/dL Magnesium 2.8 H (1.6-2.3) mg/dL 03/17/22 03/17/22 Range/Units 07:22 11:16 Sodium (137-145) mmol/L Potassium (3.5-5.1) mmol/L Chloride (98-107) mmol/L BUN (7-17) mg/dL Creatinine (0.52-1.04) mg/dL Glucose (74-99) mg/dL POC Glucose (mg/dL) 196 H 225 H (70-110) mg/dL Calcium (8.4-10.2) mg/dL Magnesium (1.6-2.3) mg/dL Assessment and Plan Assessment: (1) Acute on chronic diastolic (congestive) heart failure Current Visit: Yes Status: Acute Code(s): I50.33 - ACUTE ON CHRONIC DIASTOLIC (CONGESTIVE) HEART FAILURE SNOMED Code(s): 602025702 (2) Acute hypoxic respiratory failure secondary all the above (3) acute renal failure, secondary to ATN related to cardiorenal syndrome (4) acute on chronic anemia, etiology unclear, iron studies ordered (5)HIstory of chronic obstructive pulmonary disease (6) Type 2 diabetes mellitus, A1c 5.8 Current Visit: Yes Status: Acute Code(s): E11.9 - TYPE 2 DIABETES MELLITUS WITHOUT COMPLICATIONS SNOMED Code(s): 261545546 (7) CAD, history of stenting (8) Hypertension Current Visit: No Status: Acute Code(s): I10 - ESSENTIAL (PRIMARY) HYPERTENSION SNOMED Code(s): 73872119 (8) morbid obesity, BMI 44.4 (9) long term care pharmacist prescription opiate use Current Visit: Yes Status: Acute Code(s): Z79.891 - ICE CREAM DIPPER (CURRENT) USE OF OPIATE ANALGESIC SNOMED Code(s): 006082366 (10) Acquired hypothyroidism Current Visit: Yes Status: Acute Code(s): E03.9 - HYPOTHYROIDISM, UNSPECIFIED SNOMED Code(s): 641740927 (11) Debility Current Visit: Yes Status: Acute Code(s): R53.81 - OTHER MALAISE SNOMED Code(s): 76963069 (12) Chronic paroxysmal atrial fibrillation , on Eliquis, currently on hold secondary to anemia (13) chronic back pain, history of laminectomy and decompression (14) History of UTI secondary to Klebsiella pneumoniae and E. coli (15) moderate aortic stenosis (16) moderate pulmonary hypertension Plan: Continue on current medication regime ,monitoring and symptomatic treatment. Fluid restrictions. PAUL inhibitor and Diuretics currently on hold as per nephrology .Samsca initiated. Close monitoring of renal function, electrolytes. Maintain nebulized bronchodilators, IV steroids. Echo reporting LVH with preserved systolic function, at least moderate aortic stenosis. The impression and plan of care has been dictated as directed. : I performed a history and examination of this patient, discussed the same with the dictator. I agree with the dictator's note ,documented as a scribe. Any additional findings or plans will be noted.
[2022-03-17 16:58] LABS: Glucose,Whole Blood 222 mg/dL (70-110)
[2022-03-17 21:39] LABS: Glucose,Whole Blood 277 mg/dL (70-110)
[2022-03-17] MEDS: ATORVASTATIN 40 MG TAB PO SCH (21:42)
[2022-03-17] MEDS: AMITRIPTYLINE HCL 50 MG TAB PO SCH (21:42)
[2022-03-18] MEDS ORDERED: FUROSEMIDE 10 MG/ML 4 ML VIAL IV STA (02:20)
[2022-03-18] MEDS: methylPREDNISolone SOD SUCCI 125 MG/2 ML VIAL IV SCH ×3 (02:26→11:36)
[2022-03-18 06:59] LABS: Glucose,Whole Blood 223 mg/dL (70-110)
[2022-03-18] MEDS: INSULIN ASPART (NovoLOG) 100 UNIT/ML VIAL SQ SCH ×2 (08:33→11:36)
[2022-03-18] MEDS: HYDROcodone/APAP 5-325MG 1 EACH TAB PO SCH (08:34)
[2022-03-18] MEDS: APIXABAN 2.5 MG TABLET PO SCH (08:34)
[2022-03-18] MEDS: GABAPENTIN 300 MG CAP PO SCH (08:34)
[2022-03-18] MEDS: CYANOCOBALAMIN 500 MCG TAB PO SCH (08:34)
[2022-03-18] MEDS: FUROSEMIDE 40 MG TAB PO SCH (08:34)
[2022-03-18] MEDS: LEVOTHYROXINE 50 MCG TAB PO SCH (08:34)
[2022-03-18] MEDS: PIOGLITAZONE 30 MG TAB PO SCH (08:35)
[2022-03-18] MEDS: METOPROLOL TARTRATE 50 MG TAB PO SCH (08:37)
[2022-03-18] MEDS: IPRATROPIUM-ALBUTEROL 3 ML NEB INHALATION SCH ×2 (08:55→12:02)
[2022-03-18] MEDS: SYMBICORT 160-4.5 MCG INHALER INHALATION SCH (08:55)
[2022-03-18 08:56] VITALS: BP 147/64; RESP 18; TEMP 98.1
--- NOTE | 2022-03-18 10:46 | P.PN ---
Subjective Patient is seen in follow-up for acute kidney injury. Dyspnea and edema both improved. Good urine output. On room air. Blood pressure stable. No vomiting or diarrhea. No active complaints. no changes overnight. Vital signs are stable. General: Awake. No acute distress. HEENT: Head exam is unremarkable. LUNGS: Breath sounds decreased. HEART: Rate and Rhythm are regular. ABDOMEN: Soft, no distention. EXTREMITITES: Trace edema. Objective - Vital Signs Vital signs: Vital Signs Temp 98.1 F 03/18/22 08:00 Pulse 76 03/18/22 09:08 Resp 18 03/18/22 08:00 BP 147/64 03/18/22 08:00 Pulse Ox 94 L 03/18/22 08:00 FiO2 Intake & Output 03/17/22 03/18/22 03/18/22 18:59 06:59 18:59 Intake Total 1175 Output Total 1700 900 Balance -525 -900 Intake: Oral 1175 Output: Urine 1700 900 Other: Voiding Method Incontinent External Catheter External Catheter External Catheter - Labs CBC & Chem 7: 03/15/22 05:26 03/17/22 06:10 Labs: Abnormal Lab Results - Last 24 Hours (Table) 03/17/22 03/17/22 03/17/22 Range/Units 11:16 16:57 21:38 POC Glucose (mg/dL) 225 H 222 H 277 H (70-110) mg/dL 03/18/22 Range/Units 06:57 POC Glucose (mg/dL) 223 H (70-110) mg/dL Assessment and Plan Plan: Assessment: 1. Acute kidney injury secondary to ATN secondary to cardiorenal syndrome. Creatinine 1.42 admission and was down to 1.33 yesterday - 1.95 yesterday. No proteinuria on UA. Ultrasound from November 2021 showed no evidence of hydronephrosis. Creatinine was 0.98 in November 2021. 2. Volume overload. Improved with diuresis. 3. Acute on chronic diastolic CHF and moderate pulmonary hypertension. Moderate aortic stenosis. 4. Diabetes mellitus. 5. Anemia. Iron deficiency noted. 6. Hyponatremia secondary to acute kidney injury. 7. Hyperkalemia secondary to acute kidney injury, hyperglycemia and lisinopril. Plan: Maintain oral Lasix. status post Samsca given 03/17/2022. Low-salt diet. 1200 mL fluid restriction. Maintain IV iron. Strict I's and O's. Avoid nephrotoxins. Continue to monitor renal function and urine output. lisinopril discontinued due to hyperkalemia. follow-up morning labs. Repeat BMP and magnesium level 2-3 days postdischarge. Follow up outpatient in 1 week
[2022-03-18 11:15] LABS: Glucose,Whole Blood 266 mg/dL (70-110)
[2022-03-18 11:33] LABS: African American GFR (CKD) 31 (>60 ml/min/1.73 sqM); Anion Gap 7 mmol/L; Blood Urea Nitrogen 82 mg/dL (7-17); Calcium 8.5 mg/dL (8.4-10.2); Carbon Dioxide 30 mmol/L (22-30); Chloride 93 mmol/L (98-107); Glucose 239 mg/dL (74-99); Magnesium 2.8 mg/dL (1.6-2.3); Non-African American GFR(CKD) 27 (>60 ml/min/1.73 sqM); Potassium 4.8 mmol/L (3.5-5.1); Sodium 130 mmol/L (137-145)
[2022-03-18] MEDS: SODIUM FERRIC GLUCONAT-SUCROSE 125 MG in SODIUM CHLORIDE 0.9% 100 ML IVPB SCH (11:37)
[2022-03-18 12:05] VITALS: PULSE 72
--- NOTE | 2022-03-18 12:24 | P.DS ---
Providers Date of admission: 03/13/22 15:11 Expected date of discharge: 03/18/22 Attending physician: Phan Hartman Consults: 03/14/22 09:10 Consult Physician Routine Consulting Provider: Geo Peres Consult Reason/Comments: CHF,COPD Do you want consulting provider notified?: Yes 03/14/22 09:12 Consult Physician Routine Consulting Provider: Beau Whitney Consult Reason/Comments: renal failure,chf Do you want consulting provider notified?: Yes Primary care physician: Дмитрий [facility] Course: 03/14/22 Chief Complaint: Dyspnea, leg edema This is an 86-year-old female recently admitted with similar presentation; acute COPD exacerbation, acute CHF exacerbation, acute hypoxic respiratory failure, acute renal failure and multiple other medical issues. On that prior admission cardiology had increased metoprolol, Paul placed on hold with diuretics as per nephrology. Reports today worsening dyspnea accompanied by a increased bilatera l lower extremity edema. Denies chest pain, palpitations. Denies fever or chills. Denies cough. Denies nausea vomiting or diarrhea. Denies abdominal pain. Denies lightheadedness, dizziness or focal deficits. Chest x-ray reported cardiomegaly, pulmonary vascular congestion and bilateral pleural effusions. ProBNP 2420. Echo from 10/15/2021 reporting EF 55-60%, moderate aortic stenosis, moderate pulmonary hypertension, in a patient with known history of hypertension, hyperlipidemia, diabetes mellitus, N- STEMI , multiple stents Maintaining O2 sats in the high 90s on 4 L nasal cannula, recently titrated down to 2 L, O2 sat pending. EKG reported sinus rhythm, troponin less than 0.012. Afebrile, normal WBC, hemoglobin 8.8, platelets 3:15, sodium 136, potassium 5.1, BUN 34, creatinine 1.4 to, magnesium 2.9. Blood sugars controlled. 03/15/22 evaluated by cardiology, patient at this time not a candidate for TAVR. Echo completed, report pending. Diuresing well on Lasix IV push with 24-hour I&O reflecting a negative fluid balance. Dose decreased. Creatinine 1.33. Breathing improved, maintaining O2 sats in the high 90s to 100% on 2 L nasal cannula. Afebrile, normal WBC. 03/16/2022 continues on fluid restrictions. worsening renal function, BUN 58, creatinine up to 1.73. Maintaining O2 sats in the 90s on room air. Echo pending. Borderline hypotension. Denies chest pain, palpitations or increased shortness of breath. Maintaining O2 sats in the 90s on room air 03/17/2022 receiving IV iron .continued worsening renal function, BUN 76, creatinine 1.95. PAUL inhibitor discontinued, Lasix placed on hold. Samsca initiated. Continues maintaining O2 sats in the 90s on room air. Temperature 17 2021: Patient's improvement is been cleared by pulmonology and nephrology. She refuses rehabilitation and wants to be discharged home with home care. Patient Condition at Discharge: Fair Plan - Discharge Summary Discharge Rx Participant: No New Discharge Prescriptions: Continue Nitroglycerin Sl Tabs [Nitrostat] 0.4 mg SL Q5M PRN PRN Reason: Chest Pain Atorvastatin Calcium [Lipitor] 40 mg PO HS #1 tab Levothyroxine Sodium [Synthroid] 50 mcg PO AC-BRKFST Cyanocobalamin [Vitamin B-12 Injection] 1,000 mcg SQ Q30D Albuterol Nebulized [Ventolin Nebulized] 2.5 mg INHALATION RT-QID PRN PRN Reason: Shortness Of Breath Fluticasone/Umeclidin/Vilanter [Trelegy Ellipta 100-62.5-25] 1 puff INHALATION RT-HS Metoprolol Tartrate [Lopressor] 50 mg PO BID #0 Pioglitazone [Actos] 30 mg PO DAILY metFORMIN HCL 1,000 mg PO BID@1800,2100 HYDROcodone/APAP 5-325MG [[place] 5-325] 1 tab PO TID Gabapentin 300 mg PO TID Furosemide [Lasix] 40 mg PO DAILY Amitriptyline HCl [Elavil] 100 mg PO HS Empagliflozin [Jardiance] 10 mg PO DAILY Apixaban [Eliquis] 2.5 mg PO BID Gloria Root 550mg 1 tab PO DAILY Cyanocobalamin (Vitamin B-12) [Vitamin B-12] 1,000 mcg PO DAILY lisinopriL [Zestril] 10 mg PO BID Discharge Medication List Nitroglycerin Sl Tabs [Nitrostat] 0.4 mg SL Q5M PRN 07/20/15 [History] Atorvastatin Calcium [Lipitor] 40 mg PO HS #1 tab 08/04/15 [Rx] Cyanocobalamin [Vitamin B-12 Injection] 1,000 mcg SQ Q30D 07/06/19 [History] Levothyroxine Sodium [Synthroid] 50 mcg PO AC-BRKFST 07/06/19 [History] Albuterol Nebulized [Ventolin Nebulized] 2.5 mg INHALATION RT-QID PRN 02/19/20 [History] Fluticasone/Umeclidin/Vilanter [Trelegy Ellipta 100-62.5-25] 1 puff INHALATION RT-HS 10/15/21 [History] Apixaban [Eliquis] 2.5 mg PO BID 12/09/21 [History] Empagliflozin [Jardiance] 10 mg PO DAILY 12/09/21 [History] Metoprolol Tartrate [Lopressor] 50 mg PO BID #0 12/13/21 [Rx] Amitriptyline HCl [Elavil] 100 mg PO HS 03/13/22 [History] Cyanocobalamin (Vitamin B-12) [Vitamin B-12] 1,000 mcg PO DAILY 03/13/22 [History] Furosemide [Lasix] 40 mg PO DAILY 03/13/22 [History] Gabapentin 300 mg PO TID 03/13/22 [History] Gloria Root 550mg 1 tab PO DAILY 03/13/22 [History] HYDROcodone/APAP 5-325MG [[place] 5-325] 1 tab PO TID 03/13/22 [History] Pioglitazone [Actos] 30 mg PO DAILY 03/13/22 [History] lisinopriL [Zestril] 10 mg PO BID 03/13/22 [History] metFORMIN HCL 1,000 mg PO BID@1800,2100 03/13/22 [History] Follow up Appointment(s)/Referral(s): [facility], [NON-STAFF] - As Needed Дмитрий Montoya MD [Primary Care Provider] - 1-2 days Patient Instructions/Handouts: Heart Failure (DC), COPD (Chronic Obstructive Pulmonary Disease) (DC) Activity/Diet/Wound Care/Special Instructions: Diabetic meter and supplies ordered through [facility]. Discharge Disposition: HOME WITH HOME HEALTH SERVICES
--- NOTE | 2022-03-18 13:15 | P.PN ---
Subjective Progress Note Date: 03/18/22 Principal diagnosis: Shortness of breath. This is a very pleasant 86-year-old morbidly obese female patient, quite debilitated in a wheelchair, known to have COPD/asthma maintained Trelegy and albuterol in the outpatient setting, former smoker, CHF with diastolic failure, coronary artery disease with previous multi coronary artery stenting and diabetes mellitus. The patient has been fully vaccinated for COVID 19. She had been admitted for CHF/COPD exacerbations from December 09 through 12/13/2021. The patient comes in to the hospital because of worsening shortness of breath. She has also some increase in lower extremity edema. She has exertional dyspnea. Minimal cough. No significant sputum production. No fever or chills. No nausea vomiting or emesis. No altered mentation. Chest x-ray reveals cardiomegaly, pulmonary vascular congestion and bilateral pleural effusions. White count 6.1. Hemoglobin 8.8. Sodium 136. Potassium 5.1. BUN 34. Creatinine 1.42. Glucose 172. Troponin negative times one. ProBNP 2420. She's been initiated and DuoNeb inhalations, Symbicort, IV site Medrol, IV diuretics. She is seen today in consultation on the regular medical floor. She is resting comfortably in bed. Awake and alert in no acute distress. Maintaining O2 saturations in the 90s on 2 L/m per nasal cannula. She's afebrile. Hemodynamically stable. Making adequate urine output. The patient is seen today 03/15/2022 in follow-up on the regular medical floor. She is currently resting comfortably in bed. Awake and alert in no acute distress. Breathing a bit easier today compared to yesterday. Maintaining O2 saturations up to 100% on 2 L/m per nasal cannula. Afebrile. Hemodynamically stable. White count 6.2. Hemoglobin 8.6. Sodium 136. Potassium 4.6. Bicarb 27. BUN 46. Creatinine 1.33. Glucose 174. Pro-calcitonin 0.08. She is continued on DuoNeb inhalations, Symbicort, IV Solu-Medrol. Remains on IV diuretics. Currently in a -1.4 L balance. Anticoagulated with Eliquis. Progress note dated 03/16/2022. The patient's apparently doing much better. Currently, she's not receiving any supplemental oxygen, and also is not receiving any IV fluids. Her lower extremity edema is much better, and she states that she's breathing much easier. The nurses have wrapped her lower extremities. Laboratory data today includes a sodium 132, S in for 0.9, oriented 92, CO2 25, anion gap 15, BUN 58, and creatinine 1.73. Calcium is 8.3 with a magnesium of 2.7. Progress note dated 03/17/2022. The patient's doing much better. She'll be receiving an iron infusion today. She is currently on room air. She's not receiving any IV fluids. Her breathing is much improved. Her lower extremity edema is also very much improved. Sodium 129, potassium 5.4, chloride 93, CO2 26, anion gap 10, BUN 76, creatinine 1.95. Calcium is 8.2, and magnesium is 2.8. Progress note dated 03/18/2022. Currently, the patient is resting comfortably in room 482. She's on room air. She's not receiving any IV fluids. She's been stable for the last couple of days. Her breathing is much improved. Her lower extremity edema is also much improved. Laboratory data from today includes a sodium 1:30, potassium 4.8, chlorides 92 CO2 30, anion gap 7, BUN 82, creatinine 1.74. Magnesium is 2.8. No recent chest x-ray to report on. Objective - Vital Signs Vital signs: Vital Signs Temp 98.1 F 03/18/22 08:00 Pulse 72 03/18/22 12:15 Resp 18 03/18/22 08:00 BP 147/64 03/18/22 08:00 Pulse Ox 94 L 03/18/22 08:00 FiO2 Intake & Output 03/17/22 03/18/22 03/18/22 18:59 06:59 18:59 Intake Total 1175 Output Total 1700 900 Balance -525 -900 Intake: Oral 1175 Output: Urine 1700 900 Other: Voiding Method Incontinent External Catheter External Catheter External Catheter - Exam No acute distress, oriented 3. No respiratory distress. Not on any supplemental oxygen. HEENT examination is grossly unremarkable. Neck supple. Full range of motion. No adenopathy thyromegaly or neck vein distention. Cardiovascular examination reveals regular rhythm rate. S1-S2 normal. No S3 or S4. No discernible murmur noted. Heart sounds are distant. Heart rate 72 bpm. Lungs reveal bibasilar crackles. No rhonchi. No wheezes. Saturations are 96% on room air. Abdomen soft but obese. Bowel sounds are noted. No masses or tenderness. Extremities are intact. No cyanosis or clubbing. Mild edema noted. Edema has improved. Lower extremities are wrapped with KAE bandages. Skin is without rash or lesion. Neurologic examination is brief but nonfocal. - Labs CBC & Chem 7: 03/15/22 05:26 03/18/22 10:49 Labs: Abnormal Lab Results - Last 24 Hours (Table) 03/17/22 03/17/22 03/18/22 Range/Units 16:57 21:38 06:57 Sodium (137-145) mmol/L Chloride (98-107) mmol/L BUN (7-17) mg/dL Creatinine (0.52-1.04) mg/dL Glucose (74-99) mg/dL POC Glucose (mg/dL) 222 H 277 H 223 H (70-110) mg/dL Magnesium (1.6-2.3) mg/dL 03/18/22 03/18/22 Range/Units 10:49 11:14 Sodium 130 L (137-145) mmol/L Chloride 93 L (98-107) mmol/L BUN 82 H (7-17) mg/dL Creatinine 1.74 H (0.52-1.04) mg/dL Glucose 239 H (74-99) mg/dL POC Glucose (mg/dL) 266 H (70-110) mg/dL Magnesium 2.8 H (1.6-2.3) mg/dL Assessment and Plan Assessment: Acute hypoxemic respiratory failure secondary to an acute exacerbation of diastolic congestive heart failure. Acute on chronic anemia. Acute renal failure. History of chronic obstructive pulmonary disease secondary to a remote history of chronic tobacco dependence. Currently on Trelegy and albuterol in the outpatient setting. Previous history of urinary tract infection secondary to Klebsiella pneumoniae and E. coli. Morbid obesity. BMI 43.5 kg per metered squared. Diabetes mellitus, type II. CAD and previous stenting. Hyperlipidemia. Osteoarthritis. History of hypertension. Chronic back pain with previous laminectomy and decompression involving the lumbosacral spine. Chronic neck pain. Plan: Plan dated 03/16/2022. The patient is doing much better. She's not requiring any supplemental oxygen. She's not receiving any IV fluids. She continues on diuretics. She also continues on bronchodilators. We will continue to follow the patient. Overall prognosis remains guarded. No additional recommendations are made at this time. Plan dated 03/17/2022. The patient's doing much better. The patient is not receiving any IV fluids. The patient is not requiring any supplemental oxygen. We will continue to follow the patient and make recommendations along the way. She is currently getting an iron infusion. Overall prognosis remains guarded. The patient will need to make sure she weighs herself on a daily basis, and really reduces her salt intake. Plan dated 03/18/2022. The patient's currently on room air. The patient is not receiving any IV flui ds. From my perspective, the patient could be considered for possible discharge. We will leave that up to the primary. Labs, x-rays, and medications are reviewed. Overall prognosis remains guarded. The patient's lower extremities are wrapped in an ages. We have asked her to weigh herself daily, and limit her salt intake. Prognosis is certainly guarded. Time with Patient: Less than 30
== END 2022-03-18 14:10 | disposition home health service (06) | DRG 291 ==
LOC: EC 12:34 → 3SCARD 15:11 → 4SSUR 18:05
PROVIDERS: ADMIT Family Medicine; ATTEND Family Medicine
DX: I13.0 Hypertensive heart and chronic kidney disease with heart failure and stage 1 through stage 4 chronic kidney disease, or unspecified chronic kidney disease (principal); I50.33 Acute on chronic diastolic (congestive) heart failure; J96.01 Acute respiratory failure with hypoxia; N17.0 Acute kidney failure with tubular necrosis; E87.1 Hypo-osmolality and hyponatremia; J44.1 Chronic obstructive pulmonary disease with (acute) exacerbation; Z68.41 Body mass index [BMI] 40.0-44.9, adult; E03.9 Hypothyroidism, unspecified; E11.22 Type 2 diabetes mellitus with diabetic chronic kidney disease; E11.65 Type 2 diabetes mellitus with hyperglycemia; D50.9 Iron deficiency anemia, unspecified; E66.01 Morbid (severe) obesity due to excess calories; E78.5 Hyperlipidemia, unspecified; E87.5 Hyperkalemia; F17.210 Nicotine dependence, cigarettes, uncomplicated; G47.33 Obstructive sleep apnea (adult) (pediatric); G89.29 Other chronic pain; I25.10 Atherosclerotic heart disease of native coronary artery without angina pectoris; I25.2 Old myocardial infarction; I27.20 Pulmonary hypertension, unspecified; I35.0 Nonrheumatic aortic (valve) stenosis; Z79.01 Long term (current) use of anticoagulants; I48.0 Paroxysmal atrial fibrillation; M19.90 Unspecified osteoarthritis, unspecified site; M54.2 Cervicalgia; M54.50 Low back pain, unspecified; N18.9 Chronic kidney disease, unspecified; Z79.84 Long term (current) use of oral hypoglycemic drugs; Z79.890 Hormone replacement therapy; Z79.899 Other long term (current) drug therapy; Z82.3 Family history of stroke; Z82.49 Family history of ischemic heart disease and other diseases of the circulatory system; Z86.73 Personal history of transient ischemic attack (TIA), and cerebral infarction without residual deficits; Z87.440 Personal history of urinary (tract) infections; Z95.5 Presence of coronary angioplasty implant and graft; Z96.653 Presence of artificial knee joint, bilateral; Z88.0 Allergy status to penicillin; Z98.1 Arthrodesis status
CPT/HCPCS: 36415; 71046; 80048; 80053; 81001; 82728; 83540; 83550; 83605; 83735; 83880; 84145; 84484; 85025; 85610; 85730; 93005; 93306; 94640; 94760; 96374; 96375; 96376; 99285

== ENCOUNTER 2022-03-31 17:04 | Inpatient (IN) | payer MEDICARE ==
[2022-03-31 18:38] LABS: Anisocytosis Slight; Basophils % (A) 0 %; Eosinophils # (A) 0.1 k/uL (0-0.7); Eosinophils % (A) 1 %; HCT 26.7 % (34.0-46.0); HGB 8.1 gm/dL (11.4-16.0); Hypochromasia Marked; Lymphocytes # (A) 1.2 k/uL (1.0-4.8); Lymphocytes % (A) 14 %; MCH 24.3 pg (25.0-35.0); MCHC 30.2 g/dL (31.0-37.0); MCV 80.6 fL (80.0-100.0); Mean Platelet Volume 8.4; Monocytes # (A) 0.6 k/uL (0-1.0); Monocytes % (A) 7 %; Neutrophils # (A) 6.7 k/uL (1.3-7.7); Neutrophils % (A) 75 %; Platelet Count 423 k/uL (150-450); RBC 3.31 m/uL (3.80-5.40); RDW 16.7 % (11.5-15.5); WBC 8.9 k/uL (3.8-10.6)
--- NOTE | 2022-03-31 18:40 | ED ---
SOB HPI - General Chief Complaint: Shortness of Breath Stated Complaint: VAUGHN Time Seen by Provider: 03/31/22 17:05 Source: patient, EMS Mode of arrival: EMS Limitations: no limitations - History of Present Illness Initial Comments: 86-year-old female past medical history of COPD, CHF, moderate aortic stenosis, coronary artery disease who presents emergency Department with shortness of breath. Patient was recently hospitalized. States that she has had some worsening shortness of breath over the past several days. Shortness of breath became acutely worse this morning at 3 AM. She took 3 of her nebulizer treatments throughout the day without any improvement in her symptoms. She does not wear oxygen. Upon EMS arrival her oxygen saturation saturations were in the mid 80s with increased work of breathing. She was placed on on nonrebreather. She denies any fevers, chills or cough. Has been taking her Lasix daily without any missed doses. Admits to worsening lower extremity edema. Denies chest pain. Patient not on any antibiotics or steroids. No other alleviating, precipitating or modifying factors - Related Data Home Medications Medication Instructions Recorded Confirmed Nitroglycerin Sl Tabs [Nitrostat] 0.4 mg SL Q5M PRN 07/20/15 03/31/22 Cyanocobalamin [Vitamin B-12 1,000 mcg SQ Q30D 07/06/19 03/31/22 Injection] Levothyroxine Sodium [Synthroid] 50 mcg PO AC-BRKFST 07/06/19 03/31/22 Albuterol Nebulized [Ventolin 2.5 mg INHALATION RT-QID PRN 02/19/20 03/31/22 Nebulized] Fluticasone/Umeclidin/Vilanter 1 puff INHALATION RT-HS 10/15/21 03/31/22 [Trelegy Ellipta 100-62.5-25] Apixaban [Eliquis] 2.5 mg PO BID 12/09/21 03/31/22 Empagliflozin [Jardiance] 10 mg PO DAILY 12/09/21 03/31/22 Amitriptyline HCl [Elavil] 100 mg PO HS 03/13/22 03/31/22 Cyanocobalamin (Vitamin B-12) 1,000 mcg PO DAILY 03/13/22 03/31/22 [Vitamin B-12] Furosemide [Lasix] 40 mg PO DAILY 03/13/22 03/31/22 Gabapentin 300 mg PO TID 03/13/22 03/31/22 Gloria Root 550mg 1 tab PO DAILY 03/13/22 03/31/22 HYDROcodone/APAP 5-325MG [[place] 1 tab PO TID 03/13/22 03/31/22 5-325] Pioglitazone [Actos] 30 mg PO DAILY 03/13/22 03/31/22 lisinopriL [Zestril] 10 mg PO BID 03/13/22 03/31/22 metFORMIN HCL 1,000 mg PO BID@1800,2100 03/13/22 03/31/22 Previous Rx's Medication Instructions Recorded Atorvastatin Calcium [Lipitor] 40 mg PO HS #1 tab 08/04/15 Metoprolol Tartrate [Lopressor] 50 mg PO BID #0 12/13/21 Allergies Allergy/AdvReac Type Severity Reaction Status Date / Time Penicillins Allergy Rash/Hives Verified 03/31/22 20:25 Review of Systems ROS Statement: Those systems with pertinent positive or pertinent negative responses have been documented in the HPI. ROS Other: All systems not noted in ROS Statement are negative. Past Medical History Past Medical History: Chest Pain / Angina, Heart Failure, COPD, CVA/TIA, Diabetes Mellitus, Hyperlipidemia, Hypertension, Osteoarthritis (OA), Thyroid Disorder Additional Past Medical History / Comment(s): Using a wheelchair or a walker, bilateral peripheral neuropathy in feet and hands, chronic low back pain, lower leg edema. Last Myocardial Infarction Date:: 06/17/18 History of Any Multi-Drug Resistant Organisms: ESBL Date of last positivie culture/infection: 09/06/17 MDRO Source:: ESBL URINE Past Surgical History: Back Surgery, Heart Catheterization, Heart Catheterization With Stent, Joint Replacement, Orthopedic Surgery Additional Past Surgical History / Comment(s): Lumbar laminectomy decompression fusion L3-4 and L5-S1 with cell saver, lumbar instrumentation removal L4-5, L4- L5 laminectomy, BILATERAL KNEE REPLACEMENTS, ORIF RIGHT ANKLE, CERVICAL FUSION, bilateral rotator cuff repair, bilateral wrist carpal tunnel releases, pain procedures, left breast lumpectomy-benign, bilateral varicose vein stripping, bilateral cataracts, heart cath with 5 stents august-2021 Past Anesthesia/Blood Transfusion Reactions: No Reported Reaction Additional Past Anesthesia/Blood Transfusion Reaction / Comment(s): Pt states she has never received blood. Date of Last Stent Placement:: 08/30/2021 Past Psychological History: No Psychological Hx Reported Smoking Status: Former smoker Past Alcohol Use History: None Reported Past Drug Use History: None Reported - Past Family History Father Family Medical History: Myocardial Infarction ([place]) Additional Family Medical History / Comment(s): Father at 40 of a [place]. Mother Family Medical History: CVA/TIA Additional Family Medical History / Comment(s): Mother had a CVA General Exam Limitations: no limitations General appearance: alert, in no apparent distress Head exam: Present: atraumatic, normocephalic, normal inspection Eye exam: Present: normal appearance, PERRL, EOMI. Absent: scleral icterus, conjunctival injection, periorbital swelling ENT exam: Present: normal exam, mucous membranes moist Neck exam: Present: normal inspection. Absent: tenderness, meningismus, lymphadenopathy Respiratory exam: Present: wheezes, rales, accessory muscle use. Absent: respiratory distress, rhonchi, stridor Cardiovascular Exam: Present: regular rate, normal rhythm, normal heart sounds. Absent: systolic murmur, diastolic murmur, rubs, gallop, clicks GI/Abdominal exam: Present: soft, normal bowel sounds. Absent: distended, tenderness, guarding, rebound, rigid Extremities exam: Present: full ROM, normal capillary refill, pedal edema. Absent: tenderness, joint swelling, calf tenderness Back exam: Present: normal inspection Neurological exam: Present: alert, oriented X3, CN II-XII intact Psychiatric exam: Present: normal affect, normal mood Skin exam: Present: warm, dry, intact, normal color. Absent: rash Course Vital Signs 03/31/22 03/31/22 03/31/22 17:09 18:46 19:00 Pulse Rate 100 88 Respiratory 22 20 20 Rate Blood Pressure 158/80 126/52 O2 Sat by Pulse 100 99 Oximetry 03/31/22 03/31/22 03/31/22 20:44 20:52 20:56 Pulse Rate 89 91 90 Respiratory Rate Blood Pressure 115/44 O2 Sat by Pulse Oximetry 03/31/22 21:07 Pulse Rate 94 Respiratory 20 Rate Blood Pressure 125/53 O2 Sat by Pulse 98 Oximetry Medical Decision Making - Medical Decision Making Upon arrival patient was placed into room 1. A thorough history and physical exam was performed. Patient is on nonrebreather. We did try and titrate her down to 6 L however patient does desaturate to 79%. Laboratory studies are conducted reviewed. BNP is 2600. Chest x-ray demonstrates mild congestive heart failure with increasing right pleural effusion. She is given 40 mg of Lasix. We are able to titrate the patient on the [address] Hartman who agreed to admit the patient with cardiology consultation - Lab Data Result diagrams: 03/31/22 17:15 03/31/22 17:15 Lab Results 03/31/22 03/31/22 03/31/22 Range/Units 17:15 17:15 17:15 WBC 8.9 (3.8-10.6) k/uL RBC 3.31 L (3.80-5.40) m/uL Hgb 8.1 L (11.4-16.0) gm/dL Hct 26.7 L (34.0-46.0) % MCV 80.6 (80.0-100.0) fL MCH 24.3 L (25.0-35.0) pg MCHC 30.2 L (31.0-37.0) g/dL RDW 16.7 H (11.5-15.5) % Plt Count 423 (150-450) k/uL MPV 8.4 Neutrophils % 75 % Lymphocytes % 14 % Monocytes % 7 % Eosinophils % 1 % Basophils % 0 % Neutrophils # 6.7 (1.3-7.7) k/uL Lymphocytes # 1.2 (1.0-4.8) k/uL Monocytes # 0.6 (0-1.0) k/uL Eosinophils # 0.1 (0-0.7) k/uL Basophils # 0.0 (0-0.2) k/uL Hypochromasia Marked Anisocytosis Slight PT 10.1 (9.0-12.0) sec INR 0.9 (<1.2) APTT 26.8 (22.0-30.0) sec Sodium 135 L (137-145) mmol/L Potassium 5.4 H (3.5-5.1) mmol/L Chloride 100 (98-107) mmol/L Carbon Dioxide 23 (22-30) mmol/L Anion Gap 12 mmol/L BUN 32 H (7-17) mg/dL Creatinine 1.39 H (0.52-1.04) mg/dL Est GFR (CKD-EPI)AfAm 40 (>60 ml/min/1.73 sqM) Est GFR (CKD-EPI)NonAf 35 (>60 ml/min/1.73 sqM) Glucose 136 H (74-99) mg/dL Plasma Lactic Acid Russel (0.7-2.0) mmol/L Calcium 8.5 (8.4-10.2) mg/dL Magnesium 2.5 H (1.6-2.3) mg/dL Total Bilirubin 0.2 (0.2-1.3) mg/dL AST 19 (14-36) U/L ALT 13 (4-34) U/L Alkaline Phosphatase 88 (38-126) U/L Troponin I (0.000-0.034) ng/mL NT-Pro-B Natriuret Pep pg/mL Total Protein 5.9 L (6.3-8.2) g/dL Albumin 3.4 L (3.5-5.0) g/dL Coronavirus (PCR) (Not Detectd) Influenza Type A RNA (Not Detectd) Influenza Type B (PCR) (Not Detectd) 03/31/22 03/31/22 03/31/22 Range/Units 17:15 17:15 17:15 WBC (3.8-10.6) k/uL RBC (3.80-5.40) m/uL Hgb (11.4-16.0) gm/dL Hct (34.0-46.0) % MCV (80.0-100.0) fL MCH (25.0-35.0) pg MCHC (31.0-37.0) g/dL RDW (11.5-15.5) % Plt Count (150-450) k/uL MPV Neutrophils % % Lymphocytes % % Monocytes % % Eosinophils % % Basophils % % Neutrophils # (1.3-7.7) k/uL Lymphocytes # (1.0-4.8) k/uL Monocytes # (0-1.0) k/uL Eosinophils # (0-0.7) k/uL Basophils # (0-0.2) k/uL Hypochromasia Anisocytosis PT (9.0-12.0) sec INR (<1.2) APTT (22.0-30.0) sec Sodium (137-145) mmol/L Potassium (3.5-5.1) mmol/L Chloride (98-107) mmol/L Carbon Dioxide (22-30) mmol/L Anion Gap mmol/L BUN (7-17) mg/dL Creatinine (0.52-1.04) mg/dL Est GFR (CKD-EPI)AfAm (>60 ml/min/1.73 sqM) Est GFR (CKD-EPI)NonAf (>60 ml/min/1.73 sqM) Glucose (74-99) mg/dL Plasma Lactic Acid Russel 0.8 (0.7-2.0) mmol/L Calcium (8.4-10.2) mg/dL Magnesium (1.6-2.3) mg/dL Total Bilirubin (0.2-1.3) mg/dL AST (14-36) U/L ALT (4-34) U/L Alkaline Phosphatase (38-126) U/L Troponin I <0.012 (0.000-0.034) ng/mL NT-Pro-B Natriuret Pep 2600 pg/mL Total Protein (6.3-8.2) g/dL Albumin (3.5-5.0) g/dL Coronavirus (PCR) (Not Detectd) Influenza Type A RNA (Not Detectd) Influenza Type B (PCR) (Not Detectd) 03/31/22 03/31/22 Range/Units 17:15 17:15 WBC (3.8-10.6) k/uL RBC (3.80-5.40) m/uL Hgb (11.4-16.0) gm/dL Hct (34.0-46.0) % MCV (80.0-100.0) fL MCH (25.0-35.0) pg MCHC (31.0-37.0) g/dL RDW (11.5-15.5) % Plt Count (150-450) k/uL MPV Neutrophils % % Lymphocytes % % Monocytes % % Eosinophils % % Basophils % % Neutrophils # (1.3-7.7) k/uL Lymphocytes # (1.0-4.8) k/uL Monocytes # (0-1.0) k/uL Eosinophils # (0-0.7) k/uL Basophils # (0-0.2) k/uL Hypochromasia Anisocytosis PT (9.0-12.0) sec INR (<1.2) APTT (22.0-30.0) sec Sodium (137-145) mmol/L Potassium (3.5-5.1) mmol/L Chloride (98-107) mmol/L Carbon Dioxide (22-30) mmol/L Anion Gap mmol/L BUN (7-17) mg/dL Creatinine (0.52-1.04) mg/dL Est GFR (CKD-EPI)AfAm (>60 ml/min/1.73 sqM) Est GFR (CKD-EPI)NonAf (>60 ml/min/1.73 sqM) Glucose (74-99) mg/dL Plasma Lactic Acid Russel (0.7-2.0) mmol/L Calcium (8.4-10.2) mg/dL Magnesium (1.6-2.3) mg/dL Total Bilirubin (0.2-1.3) mg/dL AST (14-36) U/L ALT (4-34) U/L Alkaline Phosphatase (38-126) U/L Troponin I (0.000-0.034) ng/mL NT-Pro-B Natriuret Pep pg/mL Total Protein (6.3-8.2) g/dL Albumin (3.5-5.0) g/dL Coronavirus (PCR) Not Detected (Not Detectd) Influenza Type A RNA Not Detected (Not Detectd) Influenza Type B (PCR) Not Detected (Not Detectd) 03/31/22 18:40 EKG demonstrates sinus tachycardia with a rate of 100. SC interval 168. QRS 85. QTC of 367. No acute ST segment elevations or depressions concerning for ischemic changes. Some baseline artifact in V2 Disposition Clinical Impression: Acute on chronic diastolic (congestive) heart failure, Hypoxia, COPD exacerbation Disposition: ADMITTED IP TO THIS HOSP Condition: Stable Is patient prescribed a controlled substance at d/c from ED?: No Time of Disposition: 20:27 Decision to Admit Reason: Admit from EC Decision Date: 03/31/22 Decision Time: 20:27
[2022-03-31 18:46] LABS: INR 0.9 (<1.2); Partial Thromboplastin Time 26.8 sec (22.0-30.0); Prothrombin Time 10.1 sec (9.0-12.0)
[2022-03-31 18:54] LABS: Albumin 3.4 g/dL (3.5-5.0); Calcium 8.5 mg/dL (8.4-10.2); Magnesium 2.5 mg/dL (1.6-2.3); Potassium 5.4 mmol/L (3.5-5.1); Total Bilirubin 0.2 mg/dL (0.2-1.3); Total Protein 5.9 g/dL (6.3-8.2)
--- NOTE | 2022-03-31 19:19 | XR ---
EXAMINATION TYPE: XR chest 2V DATE OF EXAM: 03/31/2022 COMPARISON: 03/13/2022 HISTORY: Short of breath TECHNIQUE: 2 views FINDINGS: There is some blunting of the costophrenic angles. There is mild pulmonary vascular congest ion. Heart is slightly enlarged. There are chest leads. IMPRESSION: Mild congestive heart failure. There is increasing right pleural effusion compared to old exam.
[2022-03-31] MEDS ORDERED: FUROSEMIDE 10 MG/ML 10 ML VIAL IV STA (20:12)
[2022-03-31] MEDS ORDERED: IPRATROPIUM-ALBUTEROL 3 ML NEB INHALATION STA (20:28)
[2022-03-31] MEDS ORDERED: NALOXONE 0.4 MG/ML 1 ML VIAL IV PRN (20:28)
[2022-03-31] MEDS ORDERED: ALBUTEROL NEBULIZED 2.5 MG/3 ML INHALATION PRN (20:31)
[2022-03-31] MEDS: FUROSEMIDE 10 MG/ML 4 ML VIAL IV SCH ×2 (20:54→21:31)
[2022-03-31] MEDS ORDERED: metFORMIN 500 MG TAB PO SCH (21:15)
[2022-03-31] MEDS: METOPROLOL TARTRATE 50 MG TAB PO SCH (22:33)
[2022-03-31] MEDS: lisinopriL 10 MG TAB PO SCH (22:33)
[2022-03-31] MEDS: ATORVASTATIN 40 MG TAB PO SCH (22:33)
[2022-03-31] MEDS: APIXABAN 2.5 MG TABLET PO SCH (22:33)
[2022-03-31] MEDS: AMITRIPTYLINE HCL 50 MG TAB PO SCH (22:58)
[2022-03-31] MEDS ORDERED: NITROGLYCERIN SL TABS 0.4 MG TAB SUBLINGUAL PRN (23:05)
[2022-03-31] MEDS: HYDROcodone/APAP 5-325MG 1 EACH TAB PO PRN (23:15)
[2022-03-31] MEDS: GABAPENTIN 300 MG CAP PO SCH (23:15)
[2022-04-01] MEDS: IPRATROPIUM 0.5 MG/2.5 ML NEBU INHALATION SCH ×4 (08:39→19:57)
[2022-04-01] MEDS: SYMBICORT 80-4.5 MCG INHALER INHALATION SCH ×2 (08:39→19:57)
[2022-04-01] MEDS: METOPROLOL TARTRATE 50 MG TAB PO SCH (09:12)
[2022-04-01] MEDS: APIXABAN 2.5 MG TABLET PO SCH ×2 (09:12→21:49)
[2022-04-01] MEDS: GABAPENTIN 300 MG CAP PO SCH ×3 (09:12→21:49)
[2022-04-01] MEDS: LEVOTHYROXINE 50 MCG TAB PO SCH (09:12)
[2022-04-01] MEDS: DAPAGLIFLOZIN PROPANEDIOL 5 MG TABLET PO SCH (09:13)
[2022-04-01] MEDS: PIOGLITAZONE 30 MG TAB PO SCH (09:13)
[2022-04-01] MEDS: CYANOCOBALAMIN 500 MCG TAB PO SCH (09:13)
[2022-04-01] MEDS: lisinopriL 10 MG TAB PO SCH ×2 (09:15→21:48)
[2022-04-01] MEDS: FUROSEMIDE 10 MG/ML 4 ML VIAL IV SCH ×2 (09:50→21:49)
[2022-04-01 09:59] LABS: African American GFR (CKD) 31.5 (60.0-200.0); Anion Gap 10.7 mmol/L (10.00-18.00); BUN/Creat Ratio 17.71 Ratio (12.00-20.00); Blood Urea Nitrogen 30.1 mg/dL (9.0-27.0); Calcium 8.2 mg/dL (8.7-10.3); Carbon Dioxide 23.3 mmol/L (20.0-27.5); Non-African American GFR(CKD) 27.2 (60.0-200.0); Potassium 5.2 mmol/L (3.5-5.5)
[2022-04-01 10:08] LABS: MCH 24.5 pg (27.0-32.0); MCHC 29.1 g/dL (32.0-37.0); MCV 84.2 fL (80.0-97.0); Mean Platelet Volume 9.2 fL (9.5-12.2); NRBC Per 100 WBC 0 /100 WBCS (0.0-0.0); Platelet Count 329 X 10*3/uL (140-440); RBC 2.73 X 10*6/uL (4.10-5.20); RDW 17.4 % (11.5-14.5); WBC 8.38 X 10*3/uL (4.50-10.00)
[2022-04-01] MEDS ORDERED: FUROSEMIDE 10 MG/ML 2 ML VIAL IV ONE (10:35)
[2022-04-01 11:36] LABS: Basophils # (A) 0.03 X 10*3/uL (0.00-0.10); Basophils % (A) 0.4 %; Eosinophils # (A) 0.12 X 10*3/uL (0.04-0.35); Eosinophils % (A) 1.4 %; Immature Grans, Automated 0.5 %; Lymphocytes # (A) 1.57 X 10*3/uL (0.90-5.00); Lymphocytes % (A) 18.7 %; Monocytes # (A) 1.05 X 10*3/uL (0.20-1.00); Monocytes % (A) 12.5 %; Neutrophils # (A) 5.57 X 10*3/uL (1.80-7.70); Neutrophils % (A) 66.5 %
[2022-04-01 16:11] LABS: Glucose,Whole Blood 104 mg/dL (70-110)
[2022-04-01] MEDS: METOPROLOL TARTRATE 25 MG TAB PO SCH (21:48)
[2022-04-01] MEDS: ATORVASTATIN 40 MG TAB PO SCH (21:49)
--- NOTE | 2022-04-01 21:50 | CONS ---
CONSULTATION HISTORY OF PRESENT ILLNESS: Concepcion is an 86-year-old lady with history of coronary artery disease, aortic stenosis, paroxysmal atrial fibrillation, hypertension, diabetes, and dyslipidemia, who is admitted to the hospital with symptoms of shortness of breath. Her shortness of breath has been getting progressively worse over the last several days, became acutely worse and came in. She has been treated with nebulizers without any significant improvement. Her O2 sats were in the 80s when the EMS arrived and she was placed on a non-rebreather and brought to hospital. At the time of my evaluation, she is feeling better, shortness of breath has improved. Her hemoglobin dropped and had received a blood transfusion per primary. At the time of my evaluation, she appears comfortable at rest. Stable hemodynamically with a heart rate of 86 beats per minute. Blood pressure is 110/60, respiratory rate is 18. PAST MEDICAL HISTORY: Significant for coronary artery disease, status post angioplasty, paroxysmal atrial fibrillation, aortic stenosis, obstructive sleep apnea, hypertension, dyslipidemia, and diabetes. MEDICATIONS: Include, 1. Eliquis 2.5 b.i.d. 2. Lipitor 40 daily. 3. Symbicort. 4. Farxiga. 5. Lasix 40 IV b.i.d. 6. [place]. 7. Synthroid. 8. Atrovent. 9. Zestril 10 b.i.d. 10.Glucophage. 11.Lopressor. 12.Actos. 13.Narcan. ALLERGIES: Penicillin. FAMILY HISTORY: Negative for premature coronary artery disease. SOCIAL HISTORY: Negative for current smoking, EtOH abuse, or drug abuse. REVIEW OF SYSTEMS: review of systems has been performed. Pertinents are as documented. PHYSICAL EXAMINATION: VITAL SIGNS: Stable. O2 saturation is 99% on 4 L. NECK: There is no jugular venous distention. Carotid upstroke is normal. CHEST: Reveals diminished air entry with occasional rhonchi bilaterally. HEART: Reveals first and second heart sounds. A grade 3/6 ejection systolic murmur in the aortic area. ABDOMEN: Soft. EXTREMITIES: Reveals mild edema. Peripheral pulses are palpable. LABS: Show a hemoglobin of 6.7, potassium is 5.2, creatinine is 1.7, BUN is 30. Coronavirus is negative. BNP is elevated at 2600. An echocardiogram last month showed normal LV systolic function with moderate aortic stenosis. ASSESSMENT: 1. Acute exacerbation of chronic diastolic heart failure. 2. Paroxysmal atrial fibrillation. 3. Coronary artery disease, status post angioplasty. 4. Symptomatic anemia, status post blood transfusion. PLAN: We will obtain a Hemoccult on her. If there is any concern for GI related blood loss, we should consider holding the Eliquis at this time. MMODL / IJN: [id number] /
[2022-04-01] MEDS: AMITRIPTYLINE HCL 50 MG TAB PO SCH (22:02)
[2022-04-01 22:09] LABS: Glucose,Whole Blood 145 mg/dL (70-110)
[2022-04-02 07:04] LABS: Glucose,Whole Blood 117 mg/dL (70-110)
[2022-04-02] MEDS: LEVOTHYROXINE 50 MCG TAB PO SCH (07:37)
[2022-04-02] MEDS: METOPROLOL TARTRATE 25 MG TAB PO SCH ×2 (07:37→22:50)
[2022-04-02] MEDS: GABAPENTIN 300 MG CAP PO SCH ×3 (07:37→22:50)
[2022-04-02] MEDS: CYANOCOBALAMIN 500 MCG TAB PO SCH (07:37)
[2022-04-02] MEDS: APIXABAN 2.5 MG TABLET PO SCH ×2 (07:38→22:50)
[2022-04-02] MEDS: DAPAGLIFLOZIN PROPANEDIOL 5 MG TABLET PO SCH (07:38)
[2022-04-02] MEDS: lisinopriL 10 MG TAB PO SCH ×2 (07:38→22:50)
[2022-04-02] MEDS: PIOGLITAZONE 30 MG TAB PO SCH (07:39)
[2022-04-02] MEDS: FUROSEMIDE 10 MG/ML 4 ML VIAL IV SCH ×2 (07:42→22:49)
[2022-04-02] MEDS: IPRATROPIUM 0.5 MG/2.5 ML NEBU INHALATION SCH ×4 (09:00→20:52)
[2022-04-02] MEDS: SYMBICORT 80-4.5 MCG INHALER INHALATION SCH ×2 (09:00→20:52)
[2022-04-02 09:27] LABS: African American GFR (CKD) 36 (>60 ml/min/1.73 sqM); Anion Gap 10 mmol/L; Blood Urea Nitrogen 33 mg/dL (7-17); Calcium 8.3 mg/dL (8.4-10.2); Carbon Dioxide 26 mmol/L (22-30); Chloride 99 mmol/L (98-107); Glucose 152 mg/dL (74-99); Non-African American GFR(CKD) 31 (>60 ml/min/1.73 sqM); Potassium 5.2 mmol/L (3.5-5.1); Sodium 135 mmol/L (137-145)
[2022-04-02 09:33] LABS: Anisocytosis Slight; Basophils % (A) 0 %; Eosinophils # (A) 0.2 k/uL (0-0.7); Eosinophils % (A) 2 %; HCT 29.3 % (34.0-46.0); HGB 8.7 gm/dL (11.4-16.0); Hypochromasia Marked; Lymphocytes # (A) 1.1 k/uL (1.0-4.8); Lymphocytes % (A) 11 %; MCH 25.5 pg (25.0-35.0); MCHC 29.9 g/dL (31.0-37.0); MCV 85.3 fL (80.0-100.0); Mean Platelet Volume 7.4; Monocytes # (A) 0.6 k/uL (0-1.0); Monocytes % (A) 6 %; Neutrophils # (A) 7.7 k/uL (1.3-7.7); Neutrophils % (A) 79 %; Platelet Count 381 k/uL (150-450); RBC 3.43 m/uL (3.80-5.40); RDW 16.7 % (11.5-15.5); WBC 9.8 k/uL (3.8-10.6)
[2022-04-02 11:07] LABS: Glucose,Whole Blood 142 mg/dL (70-110)
--- NOTE | 2022-04-02 11:25 | P.HPIM ---
History of Present Illness H&P Date: 04/01/22 Chief Complaint: Shortness of breath dyspnea He 6-year-old female well-known to my practice with past medical history of COPD CHF monitor aortic stenosis coronary artery disease presented to the emergency department with shortness of breath. Patient was recently hospitalized states that she has worsening shortness of breath or past several days, the dyspnea became clearly worse at 3 AM she took 3 of her nebulizer treatments without any improvement she does not wear oxygen at home upon EMS arrival O2 sats were in the mid 80s with increased work of breathing. Placed on nonrebreather denies fever chills or cough has been taking Lasix daily without missing any doses and Mr. worsening lower extremity edema patient was not on antibiotics or steroids no other alleviating or precipitating factors however patient does have chronic anemia as well Review of Systems Constitutional: Reports fatigue, Reports weakness, Reports weight gain Ears, nose, mouth and throat: Reports as per HPI Cardiovascular: Reports as per HPI, Reports decreased exercise tolerance, Reports dyspnea on exertion, Reports edema, Reports high blood pressure, Reports irregular heart beat, Reports leg edema, Reports shortness of breath Respiratory: Reports congestion, Reports dyspnea, Reports wheezing Gastrointestinal: Reports as per HPI Genitourinary: Reports as per HPI Menstruation: Reports as per HPI Musculoskeletal: Reports as per HPI Integumentary: Reports as per HPI Neurological: Reports as per HPI Psychiatric: Reports as per HPI Past Medical History Past Medical History: Chest Pain / Angina, Heart Failure, COPD, CVA/TIA, Diabetes Mellitus, Hyperlipidemia, Hypertension, Osteoarthritis (OA), Thyroid Disorder Additional Past Medical History / Comment(s): Using a wheelchair or a walker, bilateral peripheral neuropathy in feet and hands, chronic low back pain, lower leg edema. Last Myocardial Infarction Date:: 06/17/18 History of Any Multi-Drug Resistant Organisms: ESBL Date of last positivie culture/infection: 09/06/17 MDRO Source:: ESBL URINE Past Surgical History: Back Surgery, Heart Catheterization, Heart Catheterization With Stent, Joint Replacement, Orthopedic Surgery Additional Past Surgical History / Comment(s): Lumbar laminectomy decompression fusion L3-4 and L5-S1 with cell saver, lumbar instrumentation removal L4-5, L4- L5 laminectomy, BILATERAL KNEE REPLACEMENTS, ORIF RIGHT ANKLE, CERVICAL FUSION, bilateral rotator cuff repair, bilateral wrist carpal tunnel releases, pain procedures, left breast lumpectomy-benign, bilateral varicose vein stripping, bilateral cataracts, heart cath with 5 stents august-2021 Past Anesthesia/Blood Transfusion Reactions: No Reported Reaction Additional Past Anesthesia/Blood Transfusion Reaction / Comment(s): Pt states she has never received blood. Date of Last Stent Placement:: 08/30/2021 Past Psychological History: No Psychological Hx Reported Additional Psychological History / Comment(s): . Smoking Status: Former smoker Past Alcohol Use History: None Reported Additional Past Alcohol Use History / Comment(s): Pt started smoking in 1954 and quit in 1974. She was a 1.5 ppd smoker. Past Drug Use History: None Reported - Past Family History Father Family Medical History: Myocardial Infarction (MS) Additional Family Medical History / Comment(s): Father at 40 of a MS. Mother Family Medical History: CVA/TIA Additional Family Medical History / Comment(s): Mother had a CVA Medications and Allergies Home Medications Medication Instructions Recorded Confirmed Type Nitroglycerin Sl Tabs [Nitrostat] 0.4 mg SL Q5M PRN 07/20/15 03/31/22 History Atorvastatin Calcium [Lipitor] 40 mg PO HS #1 tab 08/04/15 03/31/22 Rx Cyanocobalamin [Vitamin B-12 1,000 mcg SQ Q30D 07/06/19 03/31/22 History Injection] Levothyroxine Sodium [Synthroid] 50 mcg PO AC-BRKFST 07/06/19 03/31/22 History Albuterol Nebulized [Ventolin 2.5 mg INHALATION RT-QID PRN 02/19/20 03/31/22 History Nebulized] Fluticasone/Umeclidin/Vilanter 1 puff INHALATION RT-HS 10/15/21 03/31/22 History [Trelegy Ellipta 100-62.5-25] Apixaban [Eliquis] 2.5 mg PO BID 12/09/21 03/31/22 History Empagliflozin [Jardiance] 10 mg PO DAILY 12/09/21 03/31/22 History Metoprolol Tartrate [Lopressor] 50 mg PO BID #0 12/13/21 03/31/22 Rx Amitriptyline HCl [Elavil] 100 mg PO HS 03/13/22 03/31/22 History Cyanocobalamin (Vitamin B-12) 1,000 mcg PO DAILY 03/13/22 03/31/22 History [Vitamin B-12] Furosemide [Lasix] 40 mg PO DAILY 03/13/22 03/31/22 History Gabapentin 300 mg PO TID 03/13/22 03/31/22 History Gloria Root 550mg 1 tab PO DAILY 03/13/22 03/31/22 History HYDROcodone/APAP 5-325MG [[place] 1 tab PO TID 03/13/22 03/31/22 History 5-325] Pioglitazone [Actos] 30 mg PO DAILY 03/13/22 03/31/22 History lisinopriL [Zestril] 10 mg PO BID 03/13/22 03/31/22 History metFORMIN HCL 1,000 mg PO BID@1800,2100 03/13/22 03/31/22 History Allergies Allergy/AdvReac Type Severity Reaction Status Date / Time Penicillins Allergy Rash/Hives Verified 03/31/22 20:25 Physical Exam Osteopathic Statement: *. No significant issues noted on an osteopathic structural exam other than those noted in the History and Physical/Consult. Vitals: Vital Signs Temp Pulse Pulse Resp BP BP Pulse Ox 04/01/22 08:47 99 04/01/22 08:38 88 04/01/22 08:00 98.0 F 81 16 109/57 99 04/01/22 01:21 98.9 F 82 20 64/28 99 03/31/22 22:29 99.0 F 102 H 16 136/62 100 03/31/22 22:00 102 H 16 03/31/22 21:07 94 20 125/53 98 03/31/22 20:56 90 03/31/22 20:52 91 115/44 03/31/22 20:44 89 03/31/22 19:00 20 03/31/22 18:46 88 20 126/52 99 03/31/22 17:09 100 22 158/80 100 Intake and Output 03/31/22 04/01/22 04/01/22 22:59 06:59 14:59 Output Total 475 1500 200 Balance -475 -1500 -200 Output: Urine 475 1500 200 Other: Voiding Method External Catheter External Catheter Weight 113.398 kg 113.398 kg General: [Patient awake, alert and oriented times 3. Patient in no acute distress.] HEENT: [PERRL. EOMI. No pharyngeal erythema or exudate.] Neck: [No adenopathy.] Cardiac: [Heart regular in rate and rhythm. No S3. No S4. No clicks, rubs. No murmur.] Lungs: Scattered rhonchi diminished sounds due to body habitus Abdomen: [No mass. No organomegaly. Bowel sounds presnt and normoactive in all 4 quadrants.] Extremes: Patient has 2+ bipedal edema to her knees 2+ pulses posterior tibial bilaterally : Normal female genitalia Musculoskeletal: [No joint erythema, edema or tenderness.] Skin dry with flaking and scales Neurologic: [No lateralizing deficits. CN II - XII grossly intact.] Lymphatic: [No adenopathy.] Results CBC & Chem 7: 04/01/22 04:52 04/01/22 04:52 Labs: Abnormal Lab Results - Last 24 Hours (Table) 03/31/22 03/31/22 04/01/22 Range/Units 17:15 17:15 04:52 RBC 3.31 L 2.73 L (3.80-5.40) m/uL Hgb 8.1 L 6.7 L* (11.4-16.0) gm/dL Hct 26.7 L 23.0 L (34.0-46.0) % MCH 24.3 L 24.5 L (25.0-35.0) pg MCHC 30.2 L 29.1 L (31.0-37.0) g/dL RDW 16.7 H 17.4 H (11.5-15.5) % MPV 9.2 L (9.5-12.2) fL Sodium 135 L (137-145) mmol/L Potassium 5.4 H (3.5-5.1) mmol/L BUN 32 H (7-17) mg/dL Creatinine 1.39 H (0.52-1.04) mg/dL Est GFR (CKD-EPI)AfAm (60.0-200.0) Est GFR (CKD-EPI)NonAf (60.0-200.0) Glucose 136 H (74-99) mg/dL Calcium (8.7-10.3) mg/dL Magnesium 2.5 H (1.6-2.3) mg/dL Total Protein 5.9 L (6.3-8.2) g/dL Albumin 3.4 L (3.5-5.0) g/dL 04/01/22 Range/Units 04:52 RBC (3.80-5.40) m/uL Hgb (11.4-16.0) gm/dL Hct (34.0-46.0) % MCH (25.0-35.0) pg MCHC (31.0-37.0) g/dL RDW (11.5-15.5) % MPV (9.5-12.2) fL Sodium (137-145) mmol/L Potassium (3.5-5.1) mmol/L BUN 30.1 H (7-17) mg/dL Creatinine 1.7 H (0.52-1.04) mg/dL Est GFR (CKD-EPI)AfAm 31.5 L (60.0-200.0) Est GFR (CKD-EPI)NonAf 27.2 L (60.0-200.0) Glucose (74-99) mg/dL Calcium 8.2 L (8.7-10.3) mg/dL Magnesium (1.6-2.3) mg/dL Total Protein (6.3-8.2) g/dL Albumin (3.5-5.0) g/dL Thrombosis Risk Factor Assmnt - DVT/VTE Prophylaxis DVT/VTE Prophylaxis: Pharmacologic Prophylaxis ordered Assessment and Plan (1) Acute on chronic diastolic (congestive) heart failure Current Visit: Yes Status: Acute Code(s): I50.33 - ACUTE ON CHRONIC DIASTOLIC (CONGESTIVE) HEART FAILURE SNOMED Code(s): 272383398 (2) COPD exacerbation Current Visit: Yes Status: Acute Code(s): J44.1 - CHRONIC OBSTRUCTIVE PULMONARY DISEASE W (ACUTE) EXACERBATION SNOMED Code(s): 564824545 (3) Hypoxia Current Visit: Yes Status: Acute Code(s): R09.02 - HYPOXEMIA SNOMED Code(s): 047831500 (4) Acquired hypothyroidism Current Visit: No Status: Acute Code(s): E03.9 - HYPOTHYROIDISM, UNSPECIFIED SNOMED Code(s): 610971256 (5) Acute exacerbation of chronic obstructive pulmonary disease Current Visit: No Status: Acute Code(s): J44.1 - CHRONIC OBSTRUCTIVE PULMONARY DISEASE W (ACUTE) EXACERBATION SNOMED Code(s): 798474644 (6) Acute pulmonary edema Current Visit: No Status: Acute Code(s): J81.0 - ACUTE PULMONARY EDEMA SNOMED Code(s): 92947542 (7) Acute renal failure Current Visit: No Status: Acute Code(s): N17.9 - ACUTE KIDNEY FAILURE, UNSPECIFIED SNOMED Code(s): 67043798 (8) Altered mental status Current Visit: No Status: Acute Code(s): R41.82 - ALTERED MENTAL STATUS, UNSPECIFIED SNOMED Code(s): 105107499 (9) CAD (coronary atherosclerotic disease) Current Visit: No Status: Acute Code(s): I25.10 - ATHSCL HEART DISEASE OF [place] CORONARY ARTERY W/O ANG PCTRS SNOMED Code(s): 771066080 Plan: In mid patient in the hospital Consult cardiology Judicious diuresis Diabetic control Pain management Adequate blood pressure control
--- NOTE | 2022-04-02 11:35 | P.PN ---
Subjective Progress Note Date: 04/02/22 Principal diagnosis: Dyspnea known heart failure chronic anemia Patient is admitted with acute hypoxic exacerbation of chronic diastolic heart failure, chronic anemia Objective - Vital Signs Vital signs: Vital Signs Temp 98.3 F 04/02/22 08:00 Pulse 92 04/02/22 09:13 Resp 16 04/02/22 08:00 BP 138/66 04/02/22 07:36 Pulse Ox 96 04/02/22 09:01 FiO2 Intake & Output 04/01/22 04/02/22 04/02/22 18:59 06:59 18:59 Intake Total 430 240 Output Total 1000 400 Balance -570 -400 240 Weight 101 kg Intake: Oral 120 240 Blood Product 310 Rc As-1 Unit 310 [id number] Output: Urine 1000 400 Other: Voiding Method External Catheter External Catheter External Catheter - Exam General: [Patient awake, alert and oriented times 3. Patient in minimal distress Pale conjunctiva HEENT: [PERRL. EOMI. No pharyngeal erythema or exudate.] Neck: JVD present Cardiac: [Heart regularly irregular No S3. No S4. No clicks, rubs. Grade 2 aortic murmur Lungs: [Clear to auscultation bilaterally.] Abdomen: [No mass. No organomegaly. Bowel sounds presnt and normoactive in all 4 quadrants.] Extremes: [1+ edema bilateral lower extremes no cyanosis no claudication normal pulses] : Normal female genitalia Musculoskeletal: [No joint erythema, edema or tenderness.] Skin: [No rash.] Neurologic: [No lateralizing deficits. CN II - XII grossly intact.] Lymphatic: [No adenopathy.] - Labs CBC & Chem 7: 04/02/22 08:46 04/02/22 08:46 Labs: Abnormal Lab Results - Last 24 Hours (Table) 04/01/22 04/01/22 04/01/22 Range/Units 04:52 11:09 22:06 RBC 2.73 L (4.10-5.20) X 10*6/uL Hgb 6.7 L* (12.0-15.0) g/dL Hct 23.0 L (37.2-46.3) % MCH 24.5 L (27.0-32.0) pg MCHC 29.1 L (32.0-37.0) g/dL RDW 17.4 H (11.5-14.5) % MPV 9.2 L (9.5-12.2) fL Monocytes # 1.05 H (0.20-1.00) X 10*3/uL Sodium (137-145) mmol/L Potassium (3.5-5.1) mmol/L BUN (7-17) mg/dL Creatinine (0.52-1.04) mg/dL Glucose (74-99) mg/dL POC Glucose (mg/dL) 145 H (70-110) mg/dL Calcium (8.4-10.2) mg/dL Crossmatch See Detail 04/02/22 04/02/22 04/02/22 Range/Units 07:02 08:46 08:46 RBC 3.43 L (4.10-5.20) X 10*6/uL Hgb 8.7 L (12.0-15.0) g/dL Hct 29.3 L (37.2-46.3) % MCH (27.0-32.0) pg MCHC 29.9 L (32.0-37.0) g/dL RDW 16.7 H (11.5-14.5) % MPV (9.5-12.2) fL Monocytes # (0.20-1.00) X 10*3/uL Sodium 135 L (137-145) mmol/L Potassium 5.2 H (3.5-5.1) mmol/L BUN 33 H (7-17) mg/dL Creatinine 1.53 H (0.52-1.04) mg/dL Glucose 152 H (74-99) mg/dL POC Glucose (mg/dL) 117 H (70-110) mg/dL Calcium 8.3 L (8.4-10.2) mg/dL Crossmatch 04/02/22 Range/Units 11:04 RBC (4.10-5.20) X 10*6/uL Hgb (12.0-15.0) g/dL Hct (37.2-46.3) % MCH (27.0-32.0) pg MCHC (32.0-37.0) g/dL RDW (11.5-14.5) % MPV (9.5-12.2) fL Monocytes # (0.20-1.00) X 10*3/uL Sodium (137-145) mmol/L Potassium (3.5-5.1) mmol/L BUN (7-17) mg/dL Creatinine (0.52-1.04) mg/dL Glucose (74-99) mg/dL POC Glucose (mg/dL) 142 H (70-110) mg/dL Calcium (8.4-10.2) mg/dL Crossmatch Assessment and Plan (1) Acute on chronic diastolic (congestive) heart failure Current Visit: Yes Status: Acute Code(s): I50.33 - ACUTE ON CHRONIC DIASTOLIC (CONGESTIVE) HEART FAILURE SNOMED Code(s): 416725309 (2) COPD exacerbation Current Visit: Yes Status: Acute Code(s): J44.1 - CHRONIC OBSTRUCTIVE PULMONARY DISEASE W (ACUTE) EXACERBATION SNOMED Code(s): 008410168 (3) Hypoxia Current Visit: Yes Status: Acute Code(s): R09.02 - HYPOXEMIA SNOMED Code(s): 798131805 (4) Acquired hypothyroidism Current Visit: No Status: Acute Code(s): E03.9 - HYPOTHYROIDISM, UNSPECIFIED SNOMED Code(s): 705800739 (5) Acute exacerbation of chronic obstructive pulmonary disease Current Visit: No Status: Acute Code(s): J44.1 - CHRONIC OBSTRUCTIVE PULMONARY DISEASE W (ACUTE) EXACERBATION SNOMED Code(s): 266471777 (6) Acute pulmonary edema Current Visit: No Status: Acute Code(s): J81.0 - ACUTE PULMONARY EDEMA SNOMED Code(s): 03549272 (7) Acute renal failure Current Visit: No Status: Acute Code(s): N17.9 - ACUTE KIDNEY FAILURE, UNSPECIFIED SNOMED Code(s): 05032972 (8) Altered mental status Current Visit: No Status: Acute Code(s): R41.82 - ALTERED MENTAL STATUS, UNSPECIFIED SNOMED Code(s): 426658387 (9) CAD (coronary atherosclerotic disease) Current Visit: No Status: Acute Code(s): I25.10 - ATHSCL HEART DISEASE OF [place] CORONARY ARTERY W/O ANG PCTRS SNOMED Code(s): 025994649 Plan: In mid patient in the hospital Consult cardiology Judicious diuresis Diabetic control Pain management Acute on chronic anemia 1 unit packed red cells transfused hemoglobin 8.7 Adequate blood pressure control Time with Patient: Greater than 30
--- NOTE | 2022-04-02 12:57 | P.PN ---
Subjective Progress Note Date: 04/02/22 Patient is seen resting comfortably in the chair enjoying her lunch. She denies increased shortness of breath or chest pain. However she does have dizziness and she stands. Orthostatics remained positive at rest she is 172/63 when she stands up blood pressure drops to 94/54. Hemoglobin today is 7.8. She received 1 unit of packed red blood cells yesterday. Will continue with midodrine 5 mg twice a day. Continue to correct anemia. Will order compression stockings. Continue to hold xarelto and Plavix Objective - Vital Signs Vital signs: Vital Signs Temp 98.3 F 04/02/22 08:00 Pulse 84 04/02/22 12:30 Resp 16 04/02/22 08:00 BP 138/66 04/02/22 07:36 Pulse Ox 96 04/02/22 09:01 FiO2 Intake & Output 04/01/22 04/02/22 04/02/22 18:59 06:59 18:59 Intake Total 430 240 Output Total 3889 481 7605 Balance -570 -400 -960 Weight 101 kg Intake: Oral 120 240 Blood Product 310 Rc As-1 Unit 310 [id number] Output: Urine 6450 778 0796 Other: Voiding Method External Catheter External Catheter External Catheter - Exam PHYSICAL EXAM: VITAL SIGNS: Reviewed. GENERAL: Well-developed in no acute distress. HEENT: Head is normocephalic. Pupils are equal, round. Sclerae anicteric. Mucous membranes of the mouth are moist. NECK: Supple. No JVD or thyromegaly RESPIRATORY: Respirations even and unlabored. Lungs diminished to auscultation bilaterally. CARDIO: Regular rate and rhythm. S1 and S2 heard. No murmur or gallops. EXTREMITIES: Normal range of motion. No clubbing or cyanosis. Peripheral pulses intact. Negative for bilateral lower extremity edema NEURO: Orientated to person, time, mood is appropriate - Labs CBC & Chem 7: 04/02/22 08:46 04/02/22 08:46 Labs: Abnormal Lab Results - Last 24 Hours (Table) 04/01/22 04/01/22 04/02/22 Range/Units 11:09 22:06 07:02 RBC (3.80-5.40) m/uL Hgb (11.4-16.0) gm/dL Hct (34.0-46.0) % MCHC (31.0-37.0) g/dL RDW (11.5-15.5) % Sodium (137-145) mmol/L Potassium (3.5-5.1) mmol/L BUN (7-17) mg/dL Creatinine (0.52-1.04) mg/dL Glucose (74-99) mg/dL POC Glucose (mg/dL) 145 H 117 H (70-110) mg/dL Calcium (8.4-10.2) mg/dL Crossmatch See Detail 04/02/22 04/02/22 04/02/22 Range/Units 08:46 08:46 11:04 RBC 3.43 L (3.80-5.40) m/uL Hgb 8.7 L (11.4-16.0) gm/dL Hct 29.3 L (34.0-46.0) % MCHC 29.9 L (31.0-37.0) g/dL RDW 16.7 H (11.5-15.5) % Sodium 135 L (137-145) mmol/L Potassium 5.2 H (3.5-5.1) mmol/L BUN 33 H (7-17) mg/dL Creatinine 1.53 H (0.52-1.04) mg/dL Glucose 152 H (74-99) mg/dL POC Glucose (mg/dL) 142 H (70-110) mg/dL Calcium 8.3 L (8.4-10.2) mg/dL Crossmatch Assessment and Plan Assessment: History of orthostatic hypotension, patient is on midodrine Symptomatic anemia Proximal atrial fibrillation Coronary artery disease Plan: Continue with midodrine Continue to hold Plavix and Xarellto Continue to correct anemia continue with all other current cardiac medications Further recommendations based on clinical course The above impression and plan of care have been discussed and directed by the signing physician. Vale Blue, nurse practitioner, acting as scribe for signing physician.
--- NOTE | 2022-04-02 13:05 | P.PN ---
Subjective Progress Note Date: 04/02/22 Patient is seen today resting comfortably in bed eating lunch. She is in no signs of acute distress. She denies chest pain or increased shortness of breath. She remains on supplemental oxygen nasal cannula. Patient received 1 unit of packed red blood cells yesterday. Today hemoglobin is 8.7 and hematocrit is 29.3. Blood pressure stable 138/66. Will continue on IV Lasix 40 mg twice a day. Will continue with eliquis at this time. Objective - Vital Signs Vital signs: Vital Signs Temp 98.3 F 04/02/22 08:00 Pulse 84 04/02/22 12:30 Resp 16 04/02/22 08:00 BP 138/66 04/02/22 07:36 Pulse Ox 96 04/02/22 09:01 FiO2 Intake & Output 04/01/22 04/02/22 04/02/22 18:59 06:59 18:59 Intake Total 430 240 Output Total 2921 300 7055 Balance -570 -400 -960 Weight 101 kg Intake: Oral 120 240 Blood Product 310 Rc As-1 Unit 310 [id number] Output: Urine 9449 770 3365 Other: Voiding Method External Catheter External Catheter External Catheter - Exam PHYSICAL EXAM: VITAL SIGNS: Reviewed. GENERAL: Well-developed in no acute distress. HEENT: Head is normocephalic. Pupils are equal, round. Sclerae anicteric. Mucous membranes of the mouth are moist. NECK: Supple. No JVD or thyromegaly RESPIRATORY: Respirations even and unlabored. Lungs diminished to auscultation bilaterally. CARDIO: Regular rate and rhythm. S1 and S2 heard. No murmur or gallops. On nasal cannula EXTREMITIES: Normal range of motion. No clubbing or cyanosis. Peripheral pulses intact. Negative for bilateral lower extremity edema NEURO: Orientated to person, time, mood is appropriate - Labs CBC & Chem 7: 04/02/22 08:46 04/02/22 08:46 Labs: Abnormal Lab Results - Last 24 Hours (Table) 04/01/22 04/01/22 04/02/22 Range/Units 11:09 22:06 07:02 RBC (3.80-5.40) m/uL Hgb (11.4-16.0) gm/dL Hct (34.0-46.0) % MCHC (31.0-37.0) g/dL RDW (11.5-15.5) % Sodium (137-145) mmol/L Potassium (3.5-5.1) mmol/L BUN (7-17) mg/dL Creatinine (0.52-1.04) mg/dL Glucose (74-99) mg/dL POC Glucose (mg/dL) 145 H 117 H (70-110) mg/dL Calcium (8.4-10.2) mg/dL Crossmatch See Detail 04/02/22 04/02/22 04/02/22 Range/Units 08:46 08:46 11:04 RBC 3.43 L (3.80-5.40) m/uL Hgb 8.7 L (11.4-16.0) gm/dL Hct 29.3 L (34.0-46.0) % MCHC 29.9 L (31.0-37.0) g/dL RDW 16.7 H (11.5-15.5) % Sodium 135 L (137-145) mmol/L Potassium 5.2 H (3.5-5.1) mmol/L BUN 33 H (7-17) mg/dL Creatinine 1.53 H (0.52-1.04) mg/dL Glucose 152 H (74-99) mg/dL POC Glucose (mg/dL) 142 H (70-110) mg/dL Calcium 8.3 L (8.4-10.2) mg/dL Crossmatch Assessment and Plan Assessment: Acute exacerbation of chronic diastolic heart failure Proximal atrial fibrillation Coronary artery disease status post angioplasty Symptomatically anemia, status post blood transfusion Plan: Conitinue eliquis Continue IV Lasix Continue with all other current cardiac medications Further recommendations based on clinical course The above impression and plan of care have been discussed and directed by the signing physician. Vale Blue, nurse practitioner, acting as scribe for signing physician.
[2022-04-02] MEDS: HYDROcodone/APAP 5-325MG 1 EACH TAB PO PRN (13:28)
[2022-04-02 16:21] LABS: Glucose,Whole Blood 141 mg/dL (70-110)
[2022-04-02 20:08] LABS: Glucose,Whole Blood 168 mg/dL (70-110)
[2022-04-02] MEDS: AMITRIPTYLINE HCL 50 MG TAB PO SCH (22:50)
[2022-04-02] MEDS: ATORVASTATIN 40 MG TAB PO SCH (22:50)
[2022-04-03] MEDS ORDERED: CALCIUM CARBONATE 500 MG CHEWABLE PO PRN (01:02)
[2022-04-03 06:53] LABS: Glucose,Whole Blood 137 mg/dL (70-110)
[2022-04-03] MEDS: SYMBICORT 80-4.5 MCG INHALER INHALATION SCH ×2 (08:54→19:40)
[2022-04-03] MEDS: IPRATROPIUM 0.5 MG/2.5 ML NEBU INHALATION SCH ×4 (08:54→19:39)
[2022-04-03] MEDS: PIOGLITAZONE 30 MG TAB PO SCH (09:14)
[2022-04-03] MEDS: lisinopriL 10 MG TAB PO SCH ×2 (09:15→21:57)
[2022-04-03] MEDS: DAPAGLIFLOZIN PROPANEDIOL 5 MG TABLET PO SCH (09:15)
[2022-04-03] MEDS: APIXABAN 2.5 MG TABLET PO SCH ×2 (09:15→21:58)
[2022-04-03] MEDS: LEVOTHYROXINE 50 MCG TAB PO SCH (09:15)
[2022-04-03] MEDS: GABAPENTIN 300 MG CAP PO SCH ×3 (09:15→21:58)
[2022-04-03] MEDS: CYANOCOBALAMIN 500 MCG TAB PO SCH (09:15)
[2022-04-03] MEDS: METOPROLOL TARTRATE 25 MG TAB PO SCH ×2 (09:16→21:57)
[2022-04-03 09:24] LABS: HGB 6.7 g/dL (12.0-15.0)
--- NOTE | 2022-04-03 09:32 | P.PN ---
Subjective This is a 86-year-old female with a past medical history significant for coronary artery disease with previous PCI to OM 1, proximal and mid LAD 09/2021 and moderate to severe disease in RCA, paroxysmal atrial fibrillation on Eliquis, aortic stenosis, obstructive sleep apnea, hypertension, hyperlipidemia, type 2 diabetes, chronic kidney disease, and former nicotine dependence. Patient follows in the office with Dr. Case. We have been asked to see in consultation for congestive heart failure. Patient presents emergency department with worsening shortness of breath. She was started on IV Lasix, her symptoms have improved. Patient with 2.2 L urine output the past 24 hours, decrease weight noted. Her vital signs are stable. She denies any chest pain, shortness of breath, lightheadedness, dizziness, symptoms of orthopnea or PND. Lower extremity edema has improved. Patient with increased stress at home with loss of numerous family members over the past month. Blood pressure 144/54, heart rate 86, afebrile, oxygen saturation is 92% on room air GENERAL: In no acute distress. Tearful on exam. NECK: Supple without JVD LUNGS: Breath sounds mild crackles in the bases to auscultation bilaterally. Respiration equal and unlabored. HEART: Regular rate and rhythm with systolic murmur at right sternal border. No rubs or gallops. S1 and S2 heard. EXTREMITIES: Normal range of motion, no edema. No clubbing or cyanosis. Peripheral pulses intact. ASSESSMENT Acute on chronic heart failure with preserved ejection fraction Symptomatically anemia, status post 1 unit PRBCs. Coronary artery disease with previous PCI to OM 1, proximal and mid LAD 09/2021 and moderate to severe disease in RCA Paroxysmal atrial fibrillation on Eliquis Aortic stenosis Obstructive sleep apnea History of hypertension Hyperlipidemia Type 2 diabetes Chronic kidney disease Former nicotine dependence PLAN Transition to PO Lasix 40mg BID Monitor I/Os, daily weights, renal function and electrolytes Continue Eliquis Continue statin, lisinopril, and beta dejan Monitor hemoglobin Follow up outpatient with Dr. Case on discharge Nurse Practitioner note has been reviewed, I agree with a documented findings and plan of care. Patient was seen and examined. Objective - Vital Signs Vital signs: Vital Signs Temp 98.3 F 04/03/22 07:48 Pulse 86 04/03/22 07:48 Resp 16 04/03/22 07:48 BP 144/54 04/03/22 07:48 Pulse Ox 92 L 04/03/22 07:48 FiO2 Intake & Output 04/02/22 04/03/22 04/03/22 18:59 06:59 18:59 Intake Total 360 240 Output Total 2200 Balance -1840 240 Intake: Oral 360 240 Output: Urine 2200 Other: Voiding Method External Catheter External Catheter - Labs CBC & Chem 7: 04/02/22 08:46 04/02/22 08:46 Labs: Abnormal Lab Results - Last 24 Hours (Table) 04/02/22 04/02/22 04/02/22 Range/Units 08:46 08:46 11:04 RBC 3.43 L (3.80-5.40) m/uL Hgb 8.7 L (11.4-16.0) gm/dL Hct 29.3 L (34.0-46.0) % MCHC 29.9 L (31.0-37.0) g/dL RDW 16.7 H (11.5-15.5) % Sodium 135 L (137-145) mmol/L Potassium 5.2 H (3.5-5.1) mmol/L BUN 33 H (7-17) mg/dL Creatinine 1.53 H (0.52-1.04) mg/dL Glucose 152 H (74-99) mg/dL POC Glucose (mg/dL) 142 H (70-110) mg/dL Calcium 8.3 L (8.4-10.2) mg/dL 04/02/22 04/02/22 04/03/22 Range/Units 16:19 20:02 06:52 RBC (3.80-5.40) m/uL Hgb (11.4-16.0) gm/dL Hct (34.0-46.0) % MCHC (31.0-37.0) g/dL RDW (11.5-15.5) % Sodium (137-145) mmol/L Potassium (3.5-5.1) mmol/L BUN (7-17) mg/dL Creatinine (0.52-1.04) mg/dL Glucose (74-99) mg/dL POC Glucose (mg/dL) 141 H 168 H 137 H (70-110) mg/dL Calcium (8.4-10.2) mg/dL
[2022-04-03 09:55] LABS: African American GFR (CKD) 45 (>60 ml/min/1.73 sqM); Anion Gap 11 mmol/L; Blood Urea Nitrogen 28 mg/dL (7-17); Calcium 8.5 mg/dL (8.4-10.2); Carbon Dioxide 26 mmol/L (22-30); Chloride 96 mmol/L (98-107); Glucose 143 mg/dL (74-99); Non-African American GFR(CKD) 39 (>60 ml/min/1.73 sqM); Potassium 4.7 mmol/L (3.5-5.1); Sodium 133 mmol/L (137-145)
[2022-04-03] MEDS: FUROSEMIDE 10 MG/ML 4 ML VIAL IV SCH (10:23)
[2022-04-03] MEDS: HYDROcodone/APAP 5-325MG 1 EACH TAB PO PRN ×2 (10:39→21:58)
[2022-04-03 11:12] LABS: Glucose,Whole Blood 94 mg/dL (70-110)
[2022-04-03 11:25] LABS: Glucose,Whole Blood 139 mg/dL (70-110)
[2022-04-03] MEDS: FUROSEMIDE 40 MG TAB PO SCH (15:33)
[2022-04-03 16:57] LABS: Glucose,Whole Blood 138 mg/dL (70-110)
[2022-04-03] MEDS: metFORMIN 500 MG TAB PO SCH ×2 (17:34→21:58)
[2022-04-03] MEDS: ATORVASTATIN 40 MG TAB PO SCH (21:57)
[2022-04-03] MEDS: AMITRIPTYLINE HCL 50 MG TAB PO SCH (22:01)
[2022-04-04 07:11] LABS: Glucose,Whole Blood 143 mg/dL (70-110)
[2022-04-04 07:41] LABS: African American GFR (CKD) 38 (>60 ml/min/1.73 sqM); Anion Gap 7 mmol/L; Blood Urea Nitrogen 33 mg/dL (7-17); Calcium 8.6 mg/dL (8.4-10.2); Carbon Dioxide 33 mmol/L (22-30); Chloride 93 mmol/L (98-107); Glucose 112 mg/dL (74-99); Non-African American GFR(CKD) 33 (>60 ml/min/1.73 sqM); Potassium 4.9 mmol/L (3.5-5.1); Sodium 133 mmol/L (137-145)
[2022-04-04] MEDS: LEVOTHYROXINE 50 MCG TAB PO SCH (07:42)
[2022-04-04] MEDS: DAPAGLIFLOZIN PROPANEDIOL 5 MG TABLET PO SCH (08:45)
[2022-04-04] MEDS: FUROSEMIDE 40 MG TAB PO SCH ×2 (08:46→18:15)
[2022-04-04] MEDS: PIOGLITAZONE 30 MG TAB PO SCH (08:46)
[2022-04-04] MEDS: METOPROLOL TARTRATE 25 MG TAB PO SCH ×2 (08:46→22:02)
[2022-04-04] MEDS: APIXABAN 2.5 MG TABLET PO SCH ×2 (08:46→22:02)
[2022-04-04] MEDS: CYANOCOBALAMIN 500 MCG TAB PO SCH (08:46)
[2022-04-04] MEDS: GABAPENTIN 300 MG CAP PO SCH ×3 (08:46→22:02)
[2022-04-04] MEDS: lisinopriL 10 MG TAB PO SCH ×2 (08:46→22:03)
--- NOTE | 2022-04-04 09:00 | CDI ---
Documentation Clarification Form Date: 04/05/2022 08:32:34 AM From: Puja Arzate RN CCDS Admit Date: 03/31/2022 08:28:00 PM Patient Name: Concepcion Newberry Visit Number: [id number] Discharge Date: ATTENTION: The Clinical Documentation Specialists (CDI) and [facility] Coding Staff appreciate your assistance in clarifying documentation. Please respond to the clarification below the line at the bottom and electronically sign. The CDI & [facility] Coding staff will review the response and follow-up if needed. Please note: Queries are made part of the Legal Health Record. If you have any questions, please contact the author of this message via ITS. Dr. Дмитрий Montoya Your patient has Hypoxia, 04/01, H&P. Based on this information and the findings below, is there an additional diagnosis that is clinically appropriate for this patient? History/Risk Factors: 86-year-old female presents to the ED with shortness of breath, the patient reports dyspnea on exertion, edema in legs patient is taking home Lasix. Medical history: Heart failure, chronic anemia, DM and COPD. H&P, 04/01. Tobacco use: Former smoker quit in 1974 1.5 ppd. Home oxygen: No home oxygen use. Clinical Indicators: Vital signs: 03/31 17:09 B/P 158/80; HR 100; RR 20; SpO2 100% Non-Rebreather 15L 03/31 18:46 SpO2 99% 6L nc 03/31 21:07 SpO2 98% 4L nc 04/01 14:00 SpO2 98% 3L nc 04/02 14:00 SpO2 96% 2L nc Lung/Breathing assessment: 03/31, ED note: Present wheezes, rales, accessory muscle use. CXR: 03/31 Some blunting of the costophrenic angles. There is mild pulmonary vascular congestion. H&P, 04/01: The dyspnea became clearly worse at 3am she took 3 of her nebulizer tretments without any improvement she does not wear oxygen at home upon EMS arrival oxygen sats were in the mid 80s with increased work of breathing. Placed on non-rebreather. Treatment: 03/31 Lasix 60mg IV x 1; 03/31 04/03 Lasix IV 40mg BID; 04/01 Lasix 20mg IV x 1; 04/03 Lasix 40mg PO BID. Breathing TX: 03/31 Duoneb Inhalation x 1 STAT; 03/31 Ventolin Nebulized QID PRN; 04/01 Symbicort Inhalation BID LEIGH ANN; 04/01 Atrovent Nebulized Inhalation QID LEIGH ANN. Oxygen via Non-rebreather and nasal cannula see above Is there an additional diagnosis that is clinically appropriate for this patient? [ X] Acute Hypoxic Respiratory Failure (pO2 <60 mm Hg or SpO2 <91% on room air) [ ] Other Diagnosis, please specify [ ] Unable to determine (Template Last Revised: August 2020) MTDD
[2022-04-04] MEDS: IPRATROPIUM 0.5 MG/2.5 ML NEBU INHALATION SCH ×4 (09:01→19:34)
[2022-04-04] MEDS: SYMBICORT 80-4.5 MCG INHALER INHALATION SCH ×2 (09:01→19:34)
--- NOTE | 2022-04-04 09:36 | P.PN ---
Subjective This is a 86-year-old female with a past medical history significant for coronary artery disease with previous PCI to OM 1, proximal and mid LAD 09/2021 and moderate to severe disease in RCA, paroxysmal atrial fibrillation on Eliquis, aortic stenosis, obstructive sleep apnea, hypertension, hyperlipidemia, type 2 diabetes, chronic kidney disease, and former nicotine dependence. Patient follows in the office with Dr. Case. We have been asked to see in consultation for congestive heart failure. Patient presents emergency department with worsening shortness of breath. She was started on IV Lasix, her symptoms have improved. Patient seen and examined at bedside, feeling well. Patient with negative fluid balance, weight decreased since admission. Her vital signs are stable. She denies any chest pain, shortness of breath, lightheadedness, dizziness, symptoms of orthopnea or PND. Lower extremity edema has improved. Patient with inc reased stress at home with loss of numerous family members over the past month. Labs: Sodium 133, potassium 4.9, BUN 33, serum creatinine 1.4 Blood pressure 105/66 HR 93, afebrile 98% on 2L nasal cannula GENERAL: In no acute distress. Tearful on exam. NECK: Supple without JVD LUNGS: Breath sounds clear to auscultation bilaterally, diminished in bases. Respiration equal and unlabored. HEART: Regular rate and rhythm with systolic murmur at right sternal border. No rubs or gallops. S1 and S2 heard. EXTREMITIES: Normal range of motion, no edema. No clubbing or cyanosis. Peripheral pulses intact. ASSESSMENT Acute on chronic heart failure with preserved ejection fraction Symptomatically anemia, status post 1 unit PRBCs. Coronary artery disease with previous PCI to OM 1, proximal and mid LAD 09/2021 and moderate to severe disease in RCA Paroxysmal atrial fibrillation on Eliquis Aortic stenosis Obstructive sleep apnea History of hypertension Hyperlipidemia Type 2 diabetes Chronic kidney disease Former nicotine dependence PLAN Continue PO Lasix 40mg BID Continue Eliquis Continue statin, lisinopril, and beta dejan No further changes from a cardiology perspective, discharge per primary. Follow up outpatient with Dr. Case on discharge Nurse Practitioner note has been reviewed, I agree with a documented findings and plan of care. Patient was seen and examined. Objective - Vital Signs Vital signs: Vital Signs Temp 98.2 F 04/04/22 07:44 Pulse 93 04/04/22 07:44 Resp 17 04/04/22 07:44 BP 105/66 04/04/22 07:44 Pulse Ox 98 04/04/22 07:44 FiO2 Intake & Output 04/03/22 04/04/22 04/04/22 18:59 06:59 18:59 Intake Total 360 Output Total 550 Balance 360 -550 Weight 111 kg 111 kg Intake: Oral 360 Output: Urine 550 Other: Voiding Method External Catheter External Catheter External Catheter - Labs CBC & Chem 7: 04/02/22 08:46 04/04/22 06:50 Labs: Abnormal Lab Results - Last 24 Hours (Table) 04/01/22 04/03/22 04/03/22 Range/Units 04:52 08:45 11:23 Hgb 6.7 L* (12.0-15.0) g/dL Sodium 133 L (137-145) mmol/L Chloride 96 L (98-107) mmol/L Carbon Dioxide (22-30) mmol/L BUN 28 H (7-17) mg/dL Creatinine 1.28 H (0.52-1.04) mg/dL Glucose 143 H (74-99) mg/dL POC Glucose (mg/dL) 139 H (70-110) mg/dL 04/03/22 04/04/22 04/04/22 Range/Units 16:55 06:50 07:10 Hgb (12.0-15.0) g/dL Sodium 133 L (137-145) mmol/L Chloride 93 L (98-107) mmol/L Carbon Dioxide 33 H (22-30) mmol/L BUN 33 H (7-17) mg/dL Creatinine 1.45 H (0.52-1.04) mg/dL Glucose 112 H (74-99) mg/dL POC Glucose (mg/dL) 138 H 143 H (70-110) mg/dL
[2022-04-04 10:41] LABS: Basophils # (A) 0.03 X 10*3/uL (0.00-0.10); Basophils % (A) 0.2 %; Eosinophils # (A) 0.28 X 10*3/uL (0.04-0.35); Eosinophils % (A) 1.9 %; HCT 29.1 % (37.2-46.3); HGB 8.7 g/dL (12.0-15.0); Immature Grans, Automated 0.3 %; Lymphocytes # (A) 1.73 X 10*3/uL (0.90-5.00); MCHC 29.9 g/dL (32.0-37.0); MCV 83.6 fL (80.0-97.0); Monocytes # (A) 1.35 X 10*3/uL (0.20-1.00); Monocytes % (A) 9.4 %; NRBC Per 100 WBC 0 /100 WBCS (0.0-0.0); Neutrophils # (A) 10.97 X 10*3/uL (1.80-7.70); Neutrophils % (A) 76.2 %; Platelet Count 362 X 10*3/uL (140-440); RBC 3.48 X 10*6/uL (4.10-5.20); WBC 14.41 X 10*3/uL (4.50-10.00)
--- NOTE | 2022-04-04 11:23 | P.DS ---
Providers Date of admission: 03/31/22 20:28 Expected date of discharge: 04/04/22 Attending physician: Phan Hartman Consults: 03/31/22 20:28 Consult Physician Urgent Consulting Provider: [facility] Consult Reason/Comments: acute chf exacerbation Do you want consulting provider notified?: Yes Primary care physician: [facility] Course: Final Diagnoses: (1) Acute on chronic diastolic (congestive) heart failure Current Visit: Yes Status: Acute Code(s): I50.33 - ACUTE ON CHRONIC DIASTOLIC (CONGESTIVE) HEART FAILURE SNOMED Code(s): 423551177 (2) COPD exacerbation Current Visit: Yes Status: Acute Code(s): J44.1 - CHRONIC OBSTRUCTIVE PULMONARY DISEASE W (ACUTE) EXACERBATION SNOMED Code(s): 933516540 (3) Hypoxia Current Visit: Yes Status: Acute Code(s): R09.02 - HYPOXEMIA SNOMED Code(s): 449535084 (4) Acquired hypothyroidism Current Visit: No Status: Acute Code(s): E03.9 - HYPOTHYROIDISM, UNSPECIFIED SNOMED Code(s): 996703938 (5) Acute exacerbation of chronic obstructive pulmonary disease Current Visit: No Status: Acute Code(s): J44.1 - CHRONIC OBSTRUCTIVE PULMONARY DISEASE W (ACUTE) EXACERBATION SNOMED Code(s): 928701532 (6) Acute pulmonary edema Current Visit: No Status: Acute Code(s): J81.0 - ACUTE PULMONARY EDEMA SNOMED Code(s): 55320382 (7) Acute renal failure Current Visit: No Status: Acute Code(s): N17.9 - ACUTE KIDNEY FAILURE, UNSPECIFIED SNOMED Code(s): 86595529 (8) Altered mental status Current Visit: No Status: Acute Code(s): R41.82 - ALTERED MENTAL STATUS, UNSPECIFIED SNOMED Code(s): 280234532 (9) CAD (coronary atherosclerotic disease) Current Visit: No Status: Acute Code(s): I25.10 - ATHSCL HEART DISEASE OF [place] CORONARY ARTERY W/O ANG PCTRS SNOMED Code(s): 474778585 (10) actively grieving, patient does of grandson and daughter as well as recent family diagnosed with cancer. (11) chronic back pain (12) paroxysmal atrial fibrillation (13) symptomatic anemia, status post 1 unit packed RBCs Hospital course:Chief Complaint: Shortness of breath dyspnea He 6-year-old female well-known to my practice with past medical history of COPD CHF monitor aortic stenosis coronary artery disease presented to the emergency department with shortness of breath. Patient was recently hospitalized states that she has worsening shortness of breath or past several days, the dyspnea became clearly worse at 3 AM she took 3 of her nebulizer treatments without any improvement she does not wear oxygen at home upon EMS arrival O2 sats were in the mid 80s with increased work of breathing. Placed on nonrebreather denies fever chills or cough has been taking Lasix daily without missing any doses and MrIgnacio worsening lower extremity edema patient was not on antibiotics or steroids no other alleviating or precipitating factors however patient does have chronic anemia as well. Evaluated by cardiology. Bilateral lower extremity edema at baseline. Actively grieving, reports recent loss of grandson and daughter, as well as another family member recently diagnosed with cancer. Cleared by cardiology for discharge. Patient will be discharged to subacute rehab today in a stable condition with her prognosis, pending authorization. The impression and plan of care has been dictated as directed. : I performed a history and examination of this patient, discussed the same with the dictator. I agree with the dictator's note ,documented as a scribe. Any additional findings or plans will be noted. Patient Condition at Discharge: Stable Plan - Discharge Summary Discharge Rx Participant: No New Discharge Prescriptions: New Furosemide [Lasix] 40 mg PO BID@0900,1600 tab Metoprolol Tartrate [Lopressor] 25 mg PO BID tab Continue Nitroglycerin Sl Tabs [Nitrostat] 0.4 mg SL Q5M PRN PRN Reason: Chest Pain Atorvastatin Calcium [Lipitor] 40 mg PO HS #1 tab Levothyroxine Sodium [Synthroid] 50 mcg PO AC-BRKFST Cyanocobalamin [Vitamin B-12 Injection] 1,000 mcg SQ Q30D Albuterol Nebulized [Ventolin Nebulized] 2.5 mg INHALATION RT-QID PRN PRN Reason: Shortness Of Breath Fluticasone/Umeclidin/Vilanter [Trelegy Ellipta 100-62.5-25] 1 puff INHALATION RT-HS Pioglitazone [Actos] 30 mg PO DAILY metFORMIN HCL 1,000 mg PO BID@1800,2100 Amitriptyline HCl [Elavil] 100 mg PO HS Empagliflozin [Jardiance] 10 mg PO DAILY Apixaban [Eliquis] 2.5 mg PO BID Gloria Root 550mg 1 tab PO DAILY Cyanocobalamin (Vitamin B-12) [Vitamin B-12] 1,000 mcg PO DAILY lisinopriL [Zestril] 10 mg PO BID Gabapentin 300 mg PO TID #9 cap Changed HYDROcodone/APAP 5-325MG [[place] 5-325] 1 tab PO TID PRN #9 PRN Reason: Pain Discontinued Metoprolol Tartrate [Lopressor] 50 mg PO BID #0 Furosemide [Lasix] 40 mg PO DAILY Discharge Medication List Nitroglycerin Sl Tabs [Nitrostat] 0.4 mg SL Q5M PRN 07/20/15 [History] Atorvastatin Calcium [Lipitor] 40 mg PO HS #1 tab 08/04/15 [Rx] Cyanocobalamin [Vitamin B-12 Injection] 1,000 mcg SQ Q30D 07/06/19 [History] Levothyroxine Sodium [Synthroid] 50 mcg PO AC-BRKFST 07/06/19 [History] Albuterol Nebulized [Ventolin Nebulized] 2.5 mg INHALATION RT-QID PRN 02/19/20 [History] Fluticasone/Umeclidin/Vilanter [Trelegy Ellipta 100-62.5-25] 1 puff INHALATION RT-HS 10/15/21 [History] Apixaban [Eliquis] 2.5 mg PO BID 12/09/21 [History] Empagliflozin [Jardiance] 10 mg PO DAILY 12/09/21 [History] Amitriptyline HCl [Elavil] 100 mg PO HS 03/13/22 [History] Cyanocobalamin (Vitamin B-12) [Vitamin B-12] 1,000 mcg PO DAILY 03/13/22 [History] Gloria Root 550mg 1 tab PO DAILY 03/13/22 [History] Pioglitazone [Actos] 30 mg PO DAILY 03/13/22 [History] lisinopriL [Zestril] 10 mg PO BID 03/13/22 [History] metFORMIN HCL 1,000 mg PO BID@1800,2100 03/13/22 [History] Furosemide [Lasix] 40 mg PO BID@0900,1600 tab 10/04/22 [Rx] Gabapentin 300 mg PO TID #9 cap 04/04/22 [Rx] HYDROcodone/APAP 5-325MG [[place] 5-325] 1 tab PO TID PRN #9 04/04/22 [Rx] Metoprolol Tartrate [Lopressor] 25 mg PO BID tab 04/04/22 [Rx] Follow up Appointment(s)/Referral(s): Franklin Case MD [STAFF PHYSICIAN] - 2 Weeks Phna Hartman Jr, DO [Primary Care Provider] [facility] - As Needed Activity/Diet/Wound Care/Special Instructions: ANU: CBC, BMP in 3 days Discharge Disposition: TRANSFER TO SNF/ECF
[2022-04-04 11:24] LABS: Glucose,Whole Blood 147 mg/dL (70-110)
[2022-04-04 16:46] LABS: Glucose,Whole Blood 169 mg/dL (70-110)
[2022-04-04] MEDS: metFORMIN 500 MG TAB PO SCH ×2 (18:15→22:03)
[2022-04-04] MEDS: ATORVASTATIN 40 MG TAB PO SCH (22:02)
[2022-04-04 22:03] LABS: Glucose,Whole Blood 172 mg/dL (70-110)
[2022-04-04] MEDS: AMITRIPTYLINE HCL 50 MG TAB PO SCH (22:03)
[2022-04-05] MEDS ORDERED: SODIUM CHLORIDE 0.9% 500 ML 500 ML IV ONE (05:07)
[2022-04-05 05:27] LABS: Allen Test Performed? Yes
[2022-04-05 05:28] LABS: ABG Base Excess 6.4 mmol/L; ABG HCO3 32 mmol/L (21-25); ABG PCO2 53 mmHg (35-45); ABG PH 7.38 (7.35-7.45); ABG PO2 97 mmHg (83-108); ABG TCO2 33 mmol/L (19-24)
[2022-04-05 06:10] LABS: Glucose,Whole Blood 118 mg/dL (70-110)
[2022-04-05 07:20] LABS: Glucose,Whole Blood 127 mg/dL (70-110)
[2022-04-05 07:59] LABS: African American GFR (CKD) 20 (>60 ml/min/1.73 sqM); Anion Gap 7 mmol/L; Blood Urea Nitrogen 47 mg/dL (7-17); Calcium 7.8 mg/dL (8.4-10.2); Carbon Dioxide 32 mmol/L (22-30); Chloride 90 mmol/L (98-107); Glucose 114 mg/dL (74-99); Non-African American GFR(CKD) 17 (>60 ml/min/1.73 sqM); Potassium 5.3 mmol/L (3.5-5.1); Sodium 129 mmol/L (137-145)
[2022-04-05] MEDS: IPRATROPIUM 0.5 MG/2.5 ML NEBU INHALATION SCH ×4 (08:14→19:57)
[2022-04-05] MEDS: SYMBICORT 80-4.5 MCG INHALER INHALATION SCH ×2 (08:15→19:59)
[2022-04-05] MEDS: lisinopriL 10 MG TAB PO SCH (09:12)
--- NOTE | 2022-04-05 09:49 | P.PN ---
Subjective This is a 86-year-old female with a past medical history significant for coronary artery disease with previous PCI to OM 1, proximal and mid LAD 09/2021 and moderate to severe disease in RCA, paroxysmal atrial fibrillation on Eliquis, aortic stenosis, obstructive sleep apnea, hypertension, hyperlipidemia, type 2 diabetes, chronic kidney disease, and former nicotine dependence. Patient follows in the office with Dr. Case. We have been asked to see in consultation for congestive heart failure. Patient presents emergency department with worsening shortness of breath. She was started on IV Lasix, her symptoms have improved. Patient seen and examined at bedside, she is more lethargic this morning, states she just woke up. She is alert, more lethargic than yesterday. She denies any chest pain or shortness of breath. LE edema has improved. Patient with negative fluid balance, weight decreased since admission, stable. She is hypotensive this morning. Patient with increased stress at home with loss of numerous family members over the past month. Labs: pending Blood pressure 80/54, heart rate 65, 92% on 3 L nasal cannula GENERAL: In no acute distress. Lethargic, Oriented NECK: Supple without JVD LUNGS: Breath sounds clear to auscultation bilaterally, diminished in bases. Respiration equal and unlabored. HEART: Regular rate and rhythm with systolic murmur at right sternal border. No rubs or gallops. S1 and S2 heard. EXTREMITIES: Normal range of motion, no edema. No clubbing or cyanosis. Peripheral pulses intact. ASSESSMENT Acute on chronic heart failure with preserved ejection fraction Symptomatically anemia, status post 1 unit PRBCs. Coronary artery disease with previous PCI to OM 1, proximal and mid LAD 09/2021 and moderate to severe disease in RCA Paroxysmal atrial fibrillation on Eliquis Aortic stenosis Obstructive sleep apnea History of hypertension Hyperlipidemia Type 2 diabetes Chronic kidney disease Former nicotine dependence PLAN Patient does not appears euvolemic on exam. Currently on PO Lasix, lisinopril and beta dejan. Anticoagulated with Eliquis Continue statin Ok to hold BP medications if hypotensive at this time Further recommendations based on clinical course Follow up outpatient with Dr. Case on discharge Nurse Practitioner note has been reviewed, I agree with a documented findings and plan of care. Patient was seen and examined. Objective - Vital Signs Vital signs: Vital Signs Temp 99.0 F 04/05/22 08:00 Pulse 65 04/05/22 09:24 Resp 22 04/05/22 09:24 BP 88/54 04/05/22 09:24 Pulse Ox 92 L 04/05/22 09:24 FiO2 Intake & Output 04/04/22 04/05/22 04/05/22 18:59 06:59 18:59 Intake Total 240 Output Total 400 400 Balance -160 -400 Weight 112 kg Intake: Oral 240 Output: Urine 400 400 Other: Voiding Method External Catheter External Catheter - Labs CBC & Chem 7: 04/04/22 06:50 04/05/22 07:17 Labs: Abnormal Lab Results - Last 24 Hours (Table) 04/04/22 04/04/22 04/04/22 Range/Units 06:50 11:22 16:34 WBC 14.41 H (4.50-10.00) X 10*3/uL RBC 3.48 L (4.10-5.20) X 10*6/uL Hgb 8.7 L (12.0-15.0) g/dL Hct 29.1 L (37.2-46.3) % MCH 25.0 L (27.0-32.0) pg MCHC 29.9 L (32.0-37.0) g/dL RDW 18.0 H (11.5-14.5) % MPV 9.0 L (9.5-12.2) fL Immature Gran # 0.05 H (0.00-0.04) X 10*3/uL Neutrophils # 10.97 H (1.80-7.70) X 10*3/uL Monocytes # 1.35 H (0.20-1.00) X 10*3/uL ABG pCO2 (35-45) mmHg ABG HCO3 (21-25) mmol/L ABG Total CO2 (19-24) mmol/L ABG O2 Saturation (94-97) % Sodium (137-145) mmol/L Potassium (3.5-5.1) mmol/L Chloride (98-107) mmol/L Carbon Dioxide (22-30) mmol/L BUN (7-17) mg/dL Creatinine (0.52-1.04) mg/dL Glucose (74-99) mg/dL POC Glucose (mg/dL) 147 H 169 H (70-110) mg/dL Calcium (8.4-10.2) mg/dL 04/04/22 04/05/22 04/05/22 Range/Units 22:01 05:15 06:08 WBC (4.50-10.00) X 10*3/uL RBC (4.10-5.20) X 10*6/uL Hgb (12.0-15.0) g/dL Hct (37.2-46.3) % MCH (27.0-32.0) pg MCHC (32.0-37.0) g/dL RDW (11.5-14.5) % MPV (9.5-12.2) fL Immature Gran # (0.00-0.04) X 10*3/uL Neutrophils # (1.80-7.70) X 10*3/uL Monocytes # (0.20-1.00) X 10*3/uL ABG pCO2 53 H (35-45) mmHg ABG HCO3 32 H (21-25) mmol/L ABG Total CO2 33 H (19-24) mmol/L ABG O2 Saturation 98.0 H (94-97) % Sodium (137-145) mmol/L Potassium (3.5-5.1) mmol/L Chloride (98-107) mmol/L Carbon Dioxide (22-30) mmol/L BUN (7-17) mg/dL Creatinine (0.52-1.04) mg/dL Glucose (74-99) mg/dL POC Glucose (mg/dL) 172 H 118 H (70-110) mg/dL Calcium (8.4-10.2) mg/dL 04/05/22 04/05/22 Range/Units 07:17 07:19 WBC (4.50-10.00) X 10*3/uL RBC (4.10-5.20) X 10*6/uL Hgb (12.0-15.0) g/dL Hct (37.2-46.3) % MCH (27.0-32.0) pg MCHC (32.0-37.0) g/dL RDW (11.5-14.5) % MPV (9.5-12.2) fL Immature Gran # (0.00-0.04) X 10*3/uL Neutrophils # (1.80-7.70) X 10*3/uL Monocytes # (0.20-1.00) X 10*3/uL ABG pCO2 (35-45) mmHg ABG HCO3 (21-25) mmol/L ABG Total CO2 (19-24) mmol/L ABG O2 Saturation (94-97) % Sodium 129 L (137-145) mmol/L Potassium 5.3 H (3.5-5.1) mmol/L Chloride 90 L (98-107) mmol/L Carbon Dioxide 32 H (22-30) mmol/L BUN 47 H (7-17) mg/dL Creatinine 2.50 H (0.52-1.04) mg/dL Glucose 114 H (74-99) mg/dL POC Glucose (mg/dL) 127 H (70-110) mg/dL Calcium 7.8 L (8.4-10.2) mg/dL
[2022-04-05] MEDS: METOPROLOL TARTRATE 25 MG TAB PO SCH ×2 (10:02→21:55)
[2022-04-05] MEDS: FUROSEMIDE 40 MG TAB PO SCH ×2 (10:03→16:57)
[2022-04-05 10:10] LABS: Anisocytosis Slight; Basophils % (A) 0 %; Eosinophils # (A) 0.1 k/uL (0-0.7); Eosinophils % (A) 1 %; HCT 26.7 % (34.0-46.0); HGB 8.2 gm/dL (11.4-16.0); Hypochromasia Marked; Lymphocytes % (A) 13 %; MCH 26.1 pg (25.0-35.0); MCHC 30.8 g/dL (31.0-37.0); MCV 84.7 fL (80.0-100.0); Mean Platelet Volume 8.2; Monocytes # (A) 1.1 k/uL (0-1.0); Monocytes % (A) 7 %; Neutrophils # (A) 11.5 k/uL (1.3-7.7); Neutrophils % (A) 77 %; Platelet Count 375 k/uL (150-450); RBC 3.15 m/uL (3.80-5.40); RDW 16.5 % (11.5-15.5); WBC 14.9 k/uL (3.8-10.6)
--- NOTE | 2022-04-05 10:11 | XR ---
EXAMINATION TYPE: XR chest 1V portable DATE OF EXAM: 04/05/2022 COMPARISON: 03/31/2022 HISTORY: Shortness of breath TECHNIQUE: Single frontal view of the chest is obtained. FINDINGS: Bilateral infiltrate and small right effusion. Heart size stable. Hypertrophic degenerativ e changes spine. Uropathy of the shoulders with postsurgical change on the left. No pneumothorax. Shaunna pical pleural thickening. IMPRESSION: 1. Bilateral infiltrate and small right effusion correlate for CHF otherwise consider pneumonia.
[2022-04-05] MEDS: DAPAGLIFLOZIN PROPANEDIOL 5 MG TABLET PO SCH (10:16)
[2022-04-05] MEDS: CYANOCOBALAMIN 500 MCG TAB PO SCH (10:16)
[2022-04-05] MEDS: GABAPENTIN 300 MG CAP PO SCH ×3 (10:16→22:13)
[2022-04-05] MEDS: LEVOTHYROXINE 50 MCG TAB PO SCH (10:16)
[2022-04-05] MEDS: PIOGLITAZONE 30 MG TAB PO SCH (10:17)
--- NOTE | 2022-04-05 10:29 | P.PN ---
Subjective Progress Note Date: 04/03/22 Chief Complaint: Shortness of breath dyspnea (This is a 86-year-old female well-known to my practice with past medical history of COPD CHF monitor aortic stenosis coronary artery disease presented to the emergency department with shortness of breath. Patient was recently [facility] states that she has worsening shortness of breath or past several days, the dyspnea became clearly worse at 3 AM she took 3 of her nebulizer treatments without any improvement she does not wear oxygen at home upon EMS arrival O2 sats were in the mid 80s with increased work of breathing. Placed on nonrebreather denies fever chills or cough has been taking Lasix daily without missing any doses and Mr. worsening lower extremity edema patient was not on antibiotics or steroids no other alleviating or precipitating factors however patient does have chronic anemia as well.) 02/01/2022 Evaluated by cardiology. Bilateral lower extremity edema at baseline. Diuretics transitioned to oral as per cardiology. Renal function improving. Actively grieving, reports recent loss of grandson and daughter, as well as another family member recently diagnosed with cancer. Denies chest pain, palpit ations or increased shortness of breath. Maintaining O2 sats in the 90s on 2 L nasal cannula. Objective - Vital Signs Vital signs: Vital Signs Temp 98.4 F 04/03/22 14:00 Pulse 98 04/03/22 16:35 Resp 16 04/03/22 14:00 BP 109/61 04/03/22 14:00 Pulse Ox 96 04/03/22 14:00 FiO2 Intake & Output 04/02/22 04/03/22 04/03/22 18:59 06:59 18:59 Intake Total 360 240 360 Output Total 2200 Balance -1840 240 360 Weight 111 kg Intake: Oral 360 240 360 Output: Urine 2200 Other: Voiding Method External Catheter External Catheter External Catheter - Exam - Exam General: [Patient awake, alert and oriented times 3. No acute distress, grieving HEENT: [PERRL. Pale conjunctiva,EOMI. No pharyngeal erythema or exudate.] Neck: Supple, no JVD Cardiac: [Heart regularly irregular No S3. No S4. No clicks, rubs. Grade 2 aortic murmur Lungs: [Clear to auscultation bilaterally.] Abdomen: [No mass. No organomegaly. Bowel sounds presnt and normoactive in all 4 quadrants.] Extremes: Decreased edema bilateral lower extremities at baseline, no cyanosis no claudication normal pulses] Skin: [Warm and dry, No rash.] - Labs CBC & Chem 7: 04/05/22 07:17 04/05/22 07:17 Labs: Abnormal Lab Results - Last 24 Hours (Table) 04/01/22 04/02/22 04/03/22 Range/Units 04:52 20:02 06:52 Hgb 6.7 L* (12.0-15.0) g/dL Sodium (137-145) mmol/L Chloride (98-107) mmol/L BUN (7-17) mg/dL Creatinine (0.52-1.04) mg/dL Glucose (74-99) mg/dL POC Glucose (mg/dL) 168 H 137 H (70-110) mg/dL 04/03/22 04/03/22 04/03/22 Range/Units 08:45 11:23 16:55 Hgb (12.0-15.0) g/dL Sodium 133 L (137-145) mmol/L Chloride 96 L (98-107) mmol/L BUN 28 H (7-17) mg/dL Creatinine 1.28 H (0.52-1.04) mg/dL Glucose 143 H (74-99) mg/dL POC Glucose (mg/dL) 139 H 138 H (70-110) mg/dL Assessment and Plan Assessment: (1) Acute on chronic diastolic (congestive) heart failure Current Visit: Yes Status: Acute Code(s): I50.33 - ACUTE ON CHRONIC DIASTOLIC (CONGESTIVE) HEART FAILURE SNOMED Code(s): 732856868 (2) COPD exacerbation Current Visit: Yes Status: Acute Code(s): J44.1 - CHRONIC OBSTRUCTIVE PULMONARY DISEASE W (ACUTE) EXACERBATION SNOMED Code(s): 320948244 (3) Hypoxia Current Visit: Yes Status: Acute Code(s): R09.02 - HYPOXEMIA SNOMED Code(s): 376373880 (4) Acquired hypothyroidism Current Visit: No Status: Acute Code(s): E03.9 - HYPOTHYROIDISM, UNSPECIFIED SNOMED Code(s): 805190810 (5) Acute exacerbation of chronic obstructive pulmonary disease Current Visit: No Status: Acute Code(s): J44.1 - CHRONIC OBSTRUCTIVE PULMONARY DISEASE W (ACUTE) EXACERBATION SNOMED Code(s): 168799651 (6) Acute pulmonary edema Current Visit: No Status: Acute Code(s): J81.0 - ACUTE PULMONARY EDEMA SNOMED Code(s): 40597011 (7) Acute renal failure Current Visit: No Status: Acute Code(s): N17.9 - ACUTE KIDNEY FAILURE, UNSPECIFIED SNOMED Code(s): 71502416 (8) Altered mental status Current Visit: No Status: Acute Code(s): R41.82 - ALTERED MENTAL STATUS, UNSPECIFIED SNOMED Code(s): 604453507 (9) CAD (coronary atherosclerotic disease) Current Visit: No Status: Acute Code(s): I25.10 - ATHSCL HEART DISEASE OF [place] CORONARY ARTERY W/O ANG PCTRS SNOMED Code(s): 082523714 (10) actively grieving, patient does of grandson and daughter as well as recent family diagnosed with cancer. (11) chronic back pain (12) paroxysmal atrial fibrillation (13) symptomatic anemia, status post 1 unit packed RBCs Plan: Continue on current medication regimen ,monitoring and symptomatic treatment. Cleared by cardiology for discharge. Patient will be discharged to subacute rehab today in a stable condition with her prognosis, pending authorization. The impression and plan of care has been dictated as directed. : I performed a history and examination of this patient, discussed the same with the dictator. I agree with the dictator's note ,documented as a scribe. Any additional findings or plans will be noted.
[2022-04-05 11:26] LABS: Glucose,Whole Blood 119 mg/dL (70-110)
[2022-04-05] MEDS: APIXABAN 2.5 MG TABLET PO SCH (15:14)
[2022-04-05 16:53] LABS: Glucose,Whole Blood 109 mg/dL (70-110)
[2022-04-05] MEDS: AMITRIPTYLINE HCL 50 MG TAB PO SCH (22:15)
[2022-04-05] MEDS: SODIUM CHLORIDE 0.9% 500 ML IV SCH (22:50)
[2022-04-05 23:23] LABS: African American GFR (CKD) 13 (>60 ml/min/1.73 sqM); Anion Gap 10 mmol/L; Blood Urea Nitrogen 57 mg/dL (7-17); Calcium 7.6 mg/dL (8.4-10.2); Carbon Dioxide 27 mmol/L (22-30); Chloride 90 mmol/L (98-107); Glucose 105 mg/dL (74-99); Non-African American GFR(CKD) 11 (>60 ml/min/1.73 sqM); Potassium 5.7 mmol/L (3.5-5.1); Sodium 127 mmol/L (137-145)
[2022-04-06] MEDS: ATORVASTATIN 40 MG TAB PO SCH ×2 (00:19→22:29)
[2022-04-06] MEDS: APIXABAN 2.5 MG TABLET PO SCH ×3 (00:19→22:29)
[2022-04-06] MEDS: SODIUM CHLORIDE 0.9% 500 ML IV SCH (07:01)
[2022-04-06] MEDS: IPRATROPIUM 0.5 MG/2.5 ML NEBU INHALATION SCH ×4 (08:03→21:05)
[2022-04-06] MEDS: SYMBICORT 80-4.5 MCG INHALER INHALATION SCH ×2 (08:03→21:05)
[2022-04-06] MEDS: CYANOCOBALAMIN 500 MCG TAB PO SCH (08:23)
[2022-04-06] MEDS: GABAPENTIN 300 MG CAP PO SCH ×3 (08:23→22:30)
[2022-04-06] MEDS: LEVOTHYROXINE 50 MCG TAB PO SCH (08:23)
[2022-04-06] MEDS: METOPROLOL TARTRATE 25 MG TAB PO SCH (08:23)
[2022-04-06] MEDS: FUROSEMIDE 40 MG TAB PO SCH ×2 (08:23→18:27)
[2022-04-06] MEDS: DAPAGLIFLOZIN PROPANEDIOL 5 MG TABLET PO SCH (08:24)
--- NOTE | 2022-04-06 10:37 | P.PN ---
Subjective This is a 86-year-old female with a past medical history significant for coronary artery disease with previous PCI to OM 1, proximal and mid LAD 09/2021 and moderate to severe disease in RCA, paroxysmal atrial fibrillation on Eliquis, aortic stenosis, obstructive sleep apnea, hypertension, hyperlipidemia, type 2 diabetes, chronic kidney disease, and former nicotine dependence. Patient follows in the office with Dr. Case. We have been asked to see in consultation for congestive heart failure. Patient presents emergency department with worsening shortness of breath. She was started on IV Lasix, her symptoms have improved. Patient seen and examined at bedside, she is more alert this morning than yesterday. BP has improved. Renal function has worsened. She denies any chest pain or shortness of breath. Blood pressure 105/63, heart rate 95, afebrile, saturation 98% on 3 L nasal cannula Labs from yesterday, sodium 127, potassium 5.7, BUN 57, serum creatinine 3.4 GENERAL: In no acute distress. Lethargic, more alert this morning than yesterday, Oriented NECK: Supple without JVD LUNGS: Breath sounds clear to auscultation bilaterally, diminished in bases. Respiration equal and unlabored. HEART: Regular rate and rhythm with systolic murmur at right sternal border. No rubs or gallops. S1 and S2 heard. EXTREMITIES: Normal range of motion, no edema. No clubbing or cyanosis. Peripheral pulses intact. ASSESSMENT Acute on chronic heart failure with preserved ejection fraction Symptomatically anemia, status post 1 unit PRBCs. Coronary artery disease with previous PCI to OM 1, proximal and mid LAD 09/2021 and moderate to severe disease in RCA Paroxysmal atrial fibrillation on Eliquis Aortic stenosis Obstructive sleep apnea History of hypertension Hyperlipidemia Type 2 diabetes Chronic kidney disease Former nicotine dependence Acute kidney injury Hyperkalemia PLAN Decrease Lasix 40mg daily Anticoagulated with Eliquis ACEI on hold secondary to acute kidney injury Continue statin Continue beta dejan Monitor renal function and electrolytes Further recommendations based on clinical course Nurse Practitioner note has been reviewed, I agree with a documented findings and plan of care. Patient was seen and examined. Objective - Vital Signs Vital signs: Vital Signs Temp 98.8 F 04/06/22 08:00 Pulse 80 04/06/22 08:15 Resp 12 04/06/22 08:00 BP 105/63 04/06/22 08:00 Pulse Ox 98 04/06/22 08:00 FiO2 Intake & Output 04/05/22 04/06/22 04/06/22 18:59 06:59 18:59 Other: Voiding Method External Catheter # Voids 1 # Bowel Movements 1 - Labs CBC & Chem 7: 04/05/22 07:17 04/05/22 22:50 Labs: Abnormal Lab Results - Last 24 Hours (Table) 04/05/22 04/05/22 04/05/22 Range/Units 11:25 12:16 12:16 Sodium (137-145) mmol/L Potassium (3.5-5.1) mmol/L Chloride (98-107) mmol/L BUN (7-17) mg/dL Creatinine (0.52-1.04) mg/dL Glucose (74-99) mg/dL POC Glucose (mg/dL) 119 H (70-110) mg/dL Plasma Lactic Acid Russel 0.6 L (0.7-2.0) mmol/L Calcium (8.4-10.2) mg/dL Procalcitonin 0.43 H (0.02-0.09) ng/mL 04/05/22 Range/Units 22:50 Sodium 127 L (137-145) mmol/L Potassium 5.7 H (3.5-5.1) mmol/L Chloride 90 L (98-107) mmol/L BUN 57 H (7-17) mg/dL Creatinine 3.49 H (0.52-1.04) mg/dL Glucose 105 H (74-99) mg/dL POC Glucose (mg/dL) (70-110) mg/dL Plasma Lactic Acid Russel (0.7-2.0) mmol/L Calcium 7.6 L (8.4-10.2) mg/dL Procalcitonin (0.02-0.09) ng/mL
[2022-04-06] MEDS ORDERED: SODIUM CHLORIDE 0.9% 500 ML 500 ML IV ONE (10:51)
--- NOTE | 2022-04-06 10:51 | P.NPCON ---
History of Present Illness - Reason for Consult acute renal failure - History of Present Illness Patient is an 86-year-old female with history of COPD, CHF, admitted to the hospital with complaints of shortness of breath. Chest x-ray showed evidence of pulmonary vascular congestion and patient has been diuresed. Ejection fraction on echocardiogram in March was 60-65%. Patient was being considered for discharge on 04/04/2022 however her creatinine worsened significantly and therefore nephrology was consulted and discharge is held. Serum creatinine was 1.39 on initial admission and increased to 1.7 then decrease back to about 1.45 g/dL. On 04/05/2022 serum creatinine went up to 2.5 and to date is at 3.49. Review of blood pressures shows patient has been hypotensive with systolic blood pressure in the 80s yesterday. Paul inhibitors have been discontinued. He No new fever. No significant complaints today except for increased weakness. Previous creatinine has been 1.2-1.3 mg/dL in September and November 2021 Review of Systems As HPI other systems negative Past Medical History Past Medical History: Chest Pain / Angina, Heart Failure, COPD, CVA/TIA, Diabetes Mellitus, Hyperlipidemia, Hypertension, Osteoarthritis (OA), Thyroid Disorder Additional Past Medical History / Comment(s): Using a wheelchair or a walker, bilateral peripheral neuropathy in feet and hands, chronic low back pain, lower leg edema. Last Myocardial Infarction Date:: 06/17/18 History of Any Multi-Drug Resistant Organisms: ESBL Date of last positivie culture/infection: 09/06/17 MDRO Source:: ESBL URINE Past Surgical History: Back Surgery, Heart Catheterization, Heart Catheterization With Stent, Joint Replacement, Orthopedic Surgery Additional Past Surgical History / Comment(s): Lumbar laminectomy decompression fusion L3-4 and L5-S1 with cell saver, lumbar instrumentation removal L4-5, L4- L5 laminectomy, BILATERAL KNEE REPLACEMENTS, ORIF RIGHT ANKLE, CERVICAL FUSION, bilateral rotator cuff repair, bilateral wrist carpal tunnel releases, pain procedures, left breast lumpectomy-benign, bilateral varicose vein stripping, bilateral cataracts, heart cath with 5 stents august-2021 Past Anesthesia/Blood Transfusion Reactions: No Reported Reaction Additional Past Anesthesia/Blood Transfusion Reaction / Comment(s): Pt states she has never received blood. Date of Last Stent Placement:: 08/30/2021 Past Psychological History: No Psychological Hx Reported Additional Psychological History / Comment(s): . Smoking Status: Former smoker Past Alcohol Use History: None Reported Additional Past Alcohol Use History / Comment(s): Pt started smoking in 1955 and quit in 1974. She was a 1.5 ppd smoker. Past Drug Use History: None Reported - Past Family History Father Family Medical History: Myocardial Infarction (CT) Additional Family Medical History / Comment(s): Father at [address] Mother Family Medical History: CVA/TIA Additional Family Medical History / Comment(s): Mother had a CVA Medications and Allergies Home Medications Medication Instructions Recorded Confirmed Type Nitroglycerin Sl Tabs [Nitrostat] 0.4 mg SL Q5M PRN 07/20/15 03/31/22 History Atorvastatin Calcium [Lipitor] 40 mg PO HS #1 tab 08/04/15 03/31/22 Rx Cyanocobalamin [Vitamin B-12 1,000 mcg SQ Q30D 07/06/19 03/31/22 History Injection] Levothyroxine Sodium [Synthroid] 50 mcg PO AC-BRKFST 07/06/19 03/31/22 History Albuterol Nebulized [Ventolin 2.5 mg INHALATION RT-QID PRN 02/19/20 03/31/22 History Nebulized] Fluticasone/Umeclidin/Vilanter 1 puff INHALATION RT-HS 10/15/21 03/31/22 History [Trelegy Ellipta 100-62.5-25] Apixaban [Eliquis] 2.5 mg PO BID 12/09/21 03/31/22 History Empagliflozin [Jardiance] 10 mg PO DAILY 12/09/21 03/31/22 History Amitriptyline HCl [Elavil] 100 mg PO HS 03/13/22 03/31/22 History Cyanocobalamin (Vitamin B-12) 1,000 mcg PO DAILY 03/13/22 03/31/22 History [Vitamin B-12] Gloria Root 550mg 1 tab PO DAILY 03/13/22 03/31/22 History Pioglitazone [Actos] 30 mg PO DAILY 03/13/22 03/31/22 History lisinopriL [Zestril] 10 mg PO BID 03/13/22 03/31/22 History metFORMIN HCL 1,000 mg PO BID@1800,2100 03/13/22 03/31/22 History Furosemide [Lasix] 40 mg PO BID@0900,1600 tab 04/04/22 Rx Gabapentin 300 mg PO TID #9 cap 04/04/22 Rx HYDROcodone/APAP 5-325MG [[place] 1 tab PO TID PRN #9 04/04/22 03/31/22 Rx 5-325] Metoprolol Tartrate [Lopressor] 25 mg PO BID tab 04/04/22 Rx Allergies Allergy/AdvReac Type Severity Reaction Status Date / Time Penicillins Allergy Rash/Hives Verified 03/31/22 20:25 Physical Exam Vitals: Vital Signs Temp Pulse Pulse Resp BP BP Pulse Ox 04/06/22 08:15 80 04/06/22 08:05 88 04/06/22 08:00 98.8 F 95 12 105/63 98 04/06/22 02:35 99.4 F 99 18 114/67 97 04/05/22 23:45 66 125/63 04/05/22 21:50 74/31 04/05/22 20:07 84 04/05/22 20:00 98.5 F 80 92 21 86/51 97 04/05/22 16:00 90 92/43 04/05/22 15:29 87 18 04/05/22 13:52 87 22 100/62 92 L 04/05/22 12:18 88 94/60 95 04/05/22 11:37 82 18 04/05/22 11:26 87 18 04/05/22 11:00 87 16 96/58 92 L Intake and Output 04/05/22 04/06/22 04/06/22 22:59 06:59 14:59 Other: # Voids 1 # Bowel Movements 1 Patient is comfortable, not in any acute distress Examination of the heart S1 and S2 Examination of the lungs bilateral breath sounds are heard Abdomen is soft morbidly obese nontender Examination lower extremity shows trace edema bilaterally [employer]GER exam grossly intact Results - Lab Results Most recent lab results ABG pH 7.38 (7.35-7.45) 04/05/22 05:15 ABG pCO2 53 mmHg (35-45) H 04/05/22 05:15 ABG pO2 97 mmHg (83-108) 04/05/22 05:15 ABG HCO3 32 mmol/L (21-25) H 04/05/22 05:15 ABG O2 Saturation 98.0 % (94-97) H 04/05/22 05:15 Calcium 7.6 mg/dL (8.4-10.2) L 04/05/22 22:50 Magnesium 2.5 mg/dL (1.6-2.3) H 03/31/22 17:15 04/05/22 07:17 04/05/22 22:50 Assessment and Plan Assessment: 1. Acute kidney injury secondary to hypotension causing ischemic ATN, rule out urine retention. PAUL inhibitor's been held. Check urine analysis 2. Hypotension, add midodrine. Check random cortisone level. Ejection fraction 60-65% 3. Hyperkalemia associated with acute kidney injury, and PAUL inhibitor's, rule out urine retention. Possibility of underlying GI bleed is also entertained given the drop in hemoglobin. 4. Hyponatremia, possibly hypovolemic. Will challenge with IV fluids 5. Coronary artery disease with history of coronary artery stent 6. Paroxysmal A. fib maintained on liquids 7. Obstructive sleep apnea 8. Chronic kidney disease NKF stage III with baseline creatinine about 1.2-1.4 mg/dL. Etiology is likely nephrosclerosis. 9. Anemia rule out GI bleed 10 diastolic heart failure with acute exacerbation on initial admission currently improved. Plan: 500 mL normal saline bolus 1 Check labs today Check bladder scan rule out urine retention Add midodrine Continue off of PAUL inhibitor's Check random cortisol level Check stool for occult blood Repeat CBC today Check ultrasound of the kidneys next Thank you for the consultation. We'll continue to follow the patient with you during her hospitalization
[2022-04-06 11:45] LABS: Anisocytosis Slight; Basophils % (A) 0 %; Eosinophils # (A) 0.2 k/uL (0-0.7); Eosinophils % (A) 2 %; HCT 27.7 % (34.0-46.0); HGB 8.3 gm/dL (11.4-16.0); Hypochromasia Marked; Lymphocytes # (A) 1.5 k/uL (1.0-4.8); Lymphocytes % (A) 11 %; MCH 25.3 pg (25.0-35.0); MCHC 29.9 g/dL (31.0-37.0); MCV 84.6 fL (80.0-100.0); Mean Platelet Volume 7.8; Monocytes # (A) 0.8 k/uL (0-1.0); Monocytes % (A) 6 %; Neutrophils # (A) 10.2 k/uL (1.3-7.7); Neutrophils % (A) 79 %; Platelet Count 410 k/uL (150-450); RBC 3.28 m/uL (3.80-5.40); RDW 16.3 % (11.5-15.5)
[2022-04-06 12:06] LABS: African American GFR (CKD) 11 (>60 ml/min/1.73 sqM); Anion Gap 12 mmol/L; Blood Urea Nitrogen 63 mg/dL (7-17); Calcium 7.6 mg/dL (8.4-10.2); Carbon Dioxide 23 mmol/L (22-30); Chloride 92 mmol/L (98-107); Glucose 112 mg/dL (74-99); Non-African American GFR(CKD) 9 (>60 ml/min/1.73 sqM); Potassium 5.7 mmol/L (3.5-5.1); Sodium 127 mmol/L (137-145)
--- NOTE | 2022-04-06 13:55 | P.CNPUL ---
History of Present Illness Consult date: 04/06/22 Requesting physician: Phan Hartman Jr Reason for consult: dyspnea, cough, COPD, pneumonia, abnormal CXR/CT Chief complaint: Shortness of breath and cough. History of present illness: Pulmonary consult dated 04/06/2022. 86-year-old female admitted back on March 31, to the emergency department, with complaints of shortness of breath. The patient has a history of COPD, CHF, aortic stenosis, and coronary artery disease. The patient was recently in the hospital, and seen by our group, for CHF. The patient apparently was ready for discharge, and an x-ray shows some infiltrate, and for that reason, we were consulted. The patient does complain of shortness of breath, and cough. Produ cing a small amount of phlegm. No fever or chills. No chest pain or chest discomfort. She was initially seen by Dr. Anderson in the emergency room, and admitted with a diagnosis of acute on chronic diastolic CHF, hypoxia, and COPD exacerbation. We were not consulted when she first came into the hospital. Currently, the patient's on 3 L of oxygen. She is not receiving any IV fluids. She is a former smoker who quit in 1974. She was taking albuterol, and Trelegy, at home. White count 13, hemoglobin 8.3, hematocrit 27.7, and platelet count 410,000. Sodium 127, potassium 5.7, chlorides 92, CO2 23, anion gap 12, BUN 63, and creatinine 4.16. Her creatinine on admission was only 1.39. Chest x-ray on admission was consistent with CHF, with a right-sided pleural effusion. Chest x-ray on April 05, shows mild fluid overload, and a right-sided effusion. There could be an infiltrate at the lung base, particular on the right side. Also, the patient's pro-calcitonin level was elevated at 0.43. Review of Systems REVIEW OF SYSTEMS: CONSTITUTIONAL: [Negative.] NEUROLOGIC: [ Negative.] HEENT: [ Negative.] CARDIAC: Mild lower extremity edema. PULMONARY: Shortness breath, and cough, and minimal phlegm production. GI: [Negative.] : [Negative.] RHEUMATOLOGIC: [ Negative.] IMMUNOLOGIC: [ Negative.] ENDOCRINE: [Negative. ] DERMATOLOGIC: [Negative.] Past Medical History Past Medical History: Chest Pain / Angina, Heart Failure, COPD, CVA/TIA, Diabetes Mellitus, Hyperlipidemia, Hypertension, Osteoarthritis (OA), Thyroid Disorder Additional Past Medical History / Comment(s): Using a wheelchair or a walker, bilateral peripheral neuropathy in feet and hands, chronic low back pain, lower leg edema. Last Myocardial Infarction Date:: 06/17/18 History of Any Multi-Drug Resistant Organisms: ESBL Date of last positivie culture/infection: 09/06/17 MDRO Source:: ESBL URINE Past Surgical History: Back Surgery, Heart Catheterization, Heart Catheterization With Stent, Joint Replacement, Orthopedic Surgery Additional Past Surgical History / Comment(s): Lumbar laminectomy decompression fusion L3-4 and L5-S1 with cell saver, lumbar instrumentation removal L4-5, L4- L5 laminectomy, BILATERAL KNEE REPLACEMENTS, ORIF RIGHT ANKLE, CERVICAL FUSION, bilateral rotator cuff repair, bilateral wrist carpal tunnel releases, pain procedures, left breast lumpectomy-benign, bilateral varicose vein stripping, bilateral cataracts, heart cath with 5 stents august-2021 Past Anesthesia/Blood Transfusion Reactions: No Reported Reaction Additional Past Anesthesia/Blood Transfusion Reaction / Comment(s): Pt states she has never received blood. Date of Last Stent Placement:: 08/30/2021 Past Psychological History: No Psychological Hx Reported Additional Psychological History / Comment(s): . Smoking Status: Former smoker Past Alcohol Use History: None Reported Additional Past Alcohol Use History / Comment(s): Pt started smoking in 7 and quit in 1974. She was a 1.5 ppd smoker. Past Drug Use History: None Reported - Past Family History Father Family Medical History: Myocardial Infarction ([place]) Additional Family Medical History / Comment(s): Father at 40 of a [place]. Mother Family Medical History: CVA/TIA Additional Family Medical History / Comment(s): Mother had a CVA Medications and Allergies Home Medications Medication Instructions Recorded Confirmed Type Nitroglycerin Sl Tabs [Nitrostat] 0.4 mg SL Q5M PRN 07/20/15 03/31/22 History Atorvastatin Calcium [Lipitor] 40 mg PO HS #1 tab 08/04/15 03/31/22 Rx Cyanocobalamin [Vitamin B-12 1,000 mcg SQ Q30D 07/06/19 03/31/22 History Injection] Levothyroxine Sodium [Synthroid] 50 mcg PO AC-BRKFST 07/06/19 03/31/22 History Albuterol Nebulized [Ventolin 2.5 mg INHALATION RT-QID PRN 02/19/20 03/31/22 History Nebulized] Fluticasone/Umeclidin/Vilanter 1 puff INHALATION RT-HS 10/15/21 03/31/22 History [Trelegy Ellipta 100-62.5-25] Apixaban [Eliquis] 2.5 mg PO BID 12/09/21 03/31/22 History Empagliflozin [Jardiance] 10 mg PO DAILY 12/09/21 03/31/22 History Amitriptyline HCl [Elavil] 100 mg PO HS 03/13/22 03/31/22 History Cyanocobalamin (Vitamin B-12) 1,000 mcg PO DAILY 03/13/22 03/31/22 History [Vitamin B-12] Gloria Root 550mg 1 tab PO DAILY 03/13/22 03/31/22 History Pioglitazone [Actos] 30 mg PO DAILY 03/13/22 03/31/22 History lisinopriL [Zestril] 10 mg PO BID 03/13/22 03/31/22 History metFORMIN HCL 1,000 mg PO BID@1800,2100 03/13/22 03/31/22 History Furosemide [Lasix] 40 mg PO BID@0900,1600 tab 04/04/22 Rx Gabapentin 300 mg PO TID #9 cap 04/04/22 Rx HYDROcodone/APAP 5-325MG [Crockett 1 tab PO TID PRN #9 04/04/22 03/31/22 Rx 5-325] Metoprolol Tartrate [Lopressor] 25 mg PO BID tab 04/04/22 Rx Allergies Allergy/AdvReac Type Severity Reaction Status Date / Time Penicillins Allergy Rash/Hives Verified 03/31/22 20:25 Physical Exam Osteopathic Statement: *. No significant issues noted on an osteopathic structural exam other than those noted in the History and Physical/Consult. Vitals: Vital Signs Temp Pulse Pulse Resp BP BP Pulse Ox 04/06/22 11:11 92 04/06/22 11:06 88 04/06/22 08:15 80 04/06/22 08:05 88 04/06/22 08:00 98.8 F 95 12 105/63 98 04/06/22 02:35 99.4 F 99 18 114/67 97 04/05/22 23:45 66 125/63 04/05/22 21:50 74/31 04/05/22 20:07 84 04/05/22 20:00 98.5 F 80 92 21 86/51 97 04/05/22 16:00 90 92/43 04/05/22 15:29 87 18 04/05/22 13:52 87 22 100/62 92 L Intake and Output 04/05/22 04/06/22 04/06/22 22:59 06:59 14:59 Other: Voiding Method External Catheter # Voids 1 # Bowel Movements 1 No acute distress, oriented 3. Currently on 3 L of oxygen. Saturations are 96%. No respiratory distress, audible wheezing, or use of accessory muscles. HEENT examination is grossly unremarkable. Neck supple. Full range of motion. No adenopathy thyromegaly or neck vein distention. Cardiovascular examination reveals regular rhythm rate. S1-S2 normal. No S3 or S4. A soft systolic murmur is noted. Heart rate 92 bpm. Lungs reveal mild scattered crackles. No rhonchi. Saturations are 96% on 3 L. Breath sounds are equal bilaterally. Abdomen soft bowel sounds are heard. No masses or tenderness. Extremities are intact. No cyanosis or clubbing. Mild lower extremity edema noted. Skin is without rash or lesion. Neurologic examination is brief but nonfocal. Results - Laboratory Findings CBC and BMP: 04/06/22 11:15 04/06/22 11:15 ABG ABG pH 7.38 (7.35-7.45) 04/05/22 05:15 ABG pCO2 53 mmHg (35-45) H 04/05/22 05:15 ABG pO2 97 mmHg (83-108) 04/05/22 05:15 ABG O2 Saturation 98.0 % (94-97) H 04/05/22 05:15 PT/INR, D-dimer PT 10.1 sec (9.0-12.0) 03/31/22 17:15 INR 0.9 (<1.2) 03/31/22 17:15 Abnormal lab findings: Abnormal Labs 03/31/22 03/31/22 04/01/22 17:15 17:15 04:52 WBC RBC 3.31 L 2.73 L Hgb 8.1 L 6.7 L* Hct 26.7 L 23.0 L MCH 24.3 L 24.5 L MCHC 30.2 L 29.1 L RDW 16.7 H 17.4 H MPV 9.2 L Immature Gran # Neutrophils # Monocytes # 1.05 H ABG pCO2 ABG HCO3 ABG Total CO2 ABG O2 Saturation Sodium 135 L Potassium 5.4 H Chloride Carbon Dioxide BUN 32 H Creatinine 1.39 H Est GFR (CKD-EPI)AfAm Est GFR (CKD-EPI)NonAf Glucose 136 H POC Glucose (mg/dL) Plasma Lactic Acid Russel Calcium Magnesium 2.5 H Total Protein 5.9 L Albumin 3.4 L Procalcitonin Crossmatch 04/01/22 04/01/22 04/01/22 04:52 11:09 22:06 WBC RBC Hgb Hct MCH MCHC RDW MPV Immature Gran # Neutrophils # Monocytes # ABG pCO2 ABG HCO3 ABG Total CO2 ABG O2 Saturation Sodium Potassium Chloride Carbon Dioxide BUN 30.1 H Creatinine 1.7 H Est GFR (CKD-EPI)AfAm 31.5 L Est GFR (CKD-EPI)NonAf 27.2 L Glucose POC Glucose (mg/dL) 145 H Plasma Lactic Acid Russel Calcium 8.2 L Magnesium Total Protein Albumin Procalcitonin Crossmatch See Detail 04/02/22 04/02/22 04/02/22 07:02 08:46 08:46 WBC RBC 3.43 L Hgb 8.7 L Hct 29.3 L MCH MCHC 29.9 L RDW 16.7 H MPV Immature Gran # Neutrophils # Monocytes # ABG pCO2 ABG HCO3 ABG Total CO2 ABG O2 Saturation Sodium 135 L Potassium 5.2 H Chloride Carbon Dioxide BUN 33 H Creatinine 1.53 H Est GFR (CKD-EPI)AfAm Est GFR (CKD-EPI)NonAf Glucose 152 H POC Glucose (mg/dL) 117 H Plasma Lactic Acid Russel Calcium 8.3 L Magnesium Total Protein Albumin Procalcitonin Crossmatch 04/02/22 04/02/22 04/02/22 11:04 16:19 20:02 WBC RBC Hgb Hct MCH MCHC RDW MPV Immature Gran # Neutrophils # Monocytes # ABG pCO2 ABG HCO3 ABG Total CO2 ABG O2 Saturation Sodium Potassium Chloride Carbon Dioxide BUN Creatinine Est GFR (CKD-EPI)AfAm Est GFR (CKD-EPI)NonAf Glucose POC Glucose (mg/dL) 142 H 141 H 168 H Plasma Lactic Acid Russel Calcium Magnesium Total Protein Albumin Procalcitonin Crossmatch 04/03/22 04/03/22 04/03/22 06:52 08:45 11:23 WBC RBC Hgb Hct MCH MCHC RDW MPV Immature Gran # Neutrophils # Monocytes # ABG pCO2 ABG HCO3 ABG Total CO2 ABG O2 Saturation Sodium 133 L Potassium Chloride 96 L Carbon Dioxide BUN 28 H Creatinine 1.28 H Est GFR (CKD-EPI)AfAm Est GFR (CKD-EPI)NonAf Glucose 143 H POC Glucose (mg/dL) 137 H 139 H Plasma Lactic Acid Russel Calcium Magnesium Total Protein Albumin Procalcitonin Crossmatch 04/03/22 04/04/22 04/04/22 16:55 06:50 06:50 WBC 14.41 H RBC 3.48 L Hgb 8.7 L Hct 29.1 L MCH 25.0 L MCHC 29.9 L RDW 18.0 H MPV 9.0 L Immature Gran # 0.05 H Neutrophils # 10.97 H Monocytes # 1.35 H ABG pCO2 ABG HCO3 ABG Total CO2 ABG O2 Saturation Sodium 133 L Potassium Chloride 93 L Carbon Dioxide 33 H BUN 33 H Creatinine 1.45 H Est GFR (CKD-EPI)AfAm Est GFR (CKD-EPI)NonAf Glucose 112 H POC Glucose (mg/dL) 138 H Plasma Lactic Acid Russel Calcium Magnesium Total Protein Albumin Procalcitonin Crossmatch 04/04/22 04/04/22 04/04/22 07:10 11:22 16:34 WBC RBC Hgb Hct MCH MCHC RDW MPV Immature Gran # Neutrophils # Monocytes # ABG pCO2 ABG HCO3 ABG Total CO2 ABG O2 Saturation Sodium Potassium Chloride Carbon Dioxide BUN Creatinine Est GFR (CKD-EPI)AfAm Est GFR (CKD-EPI)NonAf Glucose POC Glucose (mg/dL) 143 H 147 H 169 H Plasma Lactic Acid Russel Calcium Magnesium Total Protein Albumin Procalcitonin Crossmatch 04/04/22 04/05/22 04/05/22 22:01 05:15 06:08 WBC RBC Hgb Hct MCH MCHC RDW MPV Immature Gran # Neutrophils # Monocytes # ABG pCO2 53 H ABG HCO3 32 H ABG Total CO2 33 H ABG O2 Saturation 98.0 H Sodium Potassium Chloride Carbon Dioxide BUN Creatinine Est GFR (CKD-EPI)AfAm Est GFR (CKD-EPI)NonAf Glucose POC Glucose (mg/dL) 172 H 118 H Plasma Lactic Acid Russel Calcium Magnesium Total Protein Albumin Procalcitonin Crossmatch 04/05/22 04/05/22 04/05/22 07:17 07:17 07:19 WBC 14.9 H RBC 3.15 L Hgb 8.2 L Hct 26.7 L MCH MCHC 30.8 L RDW 16.5 H MPV Immature Gran # Neutrophils # 11.5 H Monocytes # 1.1 H ABG pCO2 ABG HCO3 ABG Total CO2 ABG O2 Saturation Sodium 129 L Potassium 5.3 H Chloride 90 L Carbon Dioxide 32 H BUN 47 H Creatinine 2.50 H Est GFR (CKD-EPI)AfAm Est GFR (CKD-EPI)NonAf Glucose 114 H POC Glucose (mg/dL) 127 H Plasma Lactic Acid Russel Calcium 7.8 L Magnesium Total Protein Albumin Procalcitonin Crossmatch 04/05/22 04/05/22 04/05/22 11:25 12:16 12:16 WBC RBC Hgb Hct MCH MCHC RDW MPV Immature Gran # Neutrophils # Monocytes # ABG pCO2 ABG HCO3 ABG Total CO2 ABG O2 Saturation Sodium Potassium Chloride Carbon Dioxide BUN Creatinine Est GFR (CKD-EPI)AfAm Est GFR (CKD-EPI)NonAf Glucose POC Glucose (mg/dL) 119 H Plasma Lactic Acid Russel 0.6 L Calcium Magnesium Total Protein Albumin Procalcitonin 0.43 H Crossmatch 04/05/22 04/06/22 04/06/22 22:50 11:15 11:15 WBC 13.0 H RBC 3.28 L Hgb 8.3 L Hct 27.7 L MCH MCHC 29.9 L RDW 16.3 H MPV Immature Gran # Neutrophils # 10.2 H Monocytes # ABG pCO2 ABG HCO3 ABG Total CO2 ABG O2 Saturation Sodium 127 L 127 L Potassium 5.7 H 5.7 H Chloride 90 L 92 L Carbon Dioxide BUN 57 H 63 H Creatinine 3.49 H 4.16 H Est GFR (CKD-EPI)AfAm Est GFR (CKD-EPI)NonAf Glucose 105 H 112 H POC Glucose (mg/dL) Plasma Lactic Acid Russel Calcium 7.6 L 7.6 L Magnesium Total Protein Albumin Procalcitonin Crossmatch - Diagnostic Findings Chest x-ray: image reviewed Assessment and Plan Assessment: Shortness of breath, most likely secondary to fluid overload/CHF, complicated by worsening renal failure. A limited infiltrate/pneumonia, right lung base, cannot be excluded. History of COPD, from previous history of tobacco use. History of chronic diastolic CHF. CAD with previous stent placement. History of moderate aortic stenosis. History of CVA/TIA. History of diabetes mellitus. Morbid obesity. Hyperlipidemia. Hypertension. Hypothyroidism. Multiple other medical problems and comorbidities. Plan: Plan dated 04/06/2022. The patient has been seen by nephrology for her worsening renal function. Her initial creatinine was 1.39. It's up above for now. Her chest x-rays reviewed. Is most consistent with fluid overload, and a right-sided pleural effusion. There may be an infiltrate at the right lung base. Her pro-calcitonin level is modestly elevated. I believe the patient would likely do well with an oral antibiotic. I'm recommending Omnicef, 300 mg twice a day. No additional recommendations are made. We will continue to follow. The patient's on appropriate bronchodilators. No steroids are needed at this time. Time with Patient: Greater than 30
--- NOTE | 2022-04-06 14:35 | US ---
EXAMINATION TYPE: US kidneys/renal and bladder DATE OF EXAM: 04/06/2022 COMPARISON: 12/12/2021 CLINICAL HISTORY: natasha. EXAM MEASUREMENTS: Right Kidney: 9.2 x 4.2 x 4.4 cm Left Kidney: 9.9 x 5.0 x 4.6 cm Exam limited by body habitus and overlying bowel gas Right Kidney: wnl Left Kidney: Superior pole obscured by bowel gas Bladder: wnl Bilateral Jets seen: No There is no evidence for hydronephrosis at this point in time. No nephrolithiasis is seen. No el s are identified. The urinary bladder is anechoic. Bilateral cortical thinning. IMPRESSION: No hydronephrosis or nephrolithiasis. Cortical thinning suggests chronic medical renal disease.
--- NOTE | 2022-04-06 15:35 | P.PN ---
Subjective Progress Note Date: 04/06/22 Chief Complaint: Shortness of breath dyspnea (This is a 86-year-old female well-known to my practice with past medical history of COPD CHF monitor aortic stenosis coronary artery disease presented to the emergency department with shortness of breath. [facility] that [facility] has worsening shortness of breath or past several days, the dyspnea became clearly worse at 3 AM she took 3 of her nebulizer treatments without any improvement she does not wear oxygen at home upon EMS arrival O2 sats were in the mid 80s with increased work of breathing. Placed on nonrebreather denies fever chills or cough has been taking Lasix daily without missing any doses and Mr. worsening lower extremity edema patient was not on antibiotics or steroids no other alleviating or precipitating factors however patient does have chronic anemia as well.) 04/03/2022 Evaluated by cardiology. Bilateral lower extremity edema at baseline. Diuretics transitioned to oral as per cardiology. Renal function improving. Actively grieving, reports recent loss of grandson and daughter, as well as another family member recently diagnosed with cancer. Denies chest pain, palpit ations or increased shortness of breath. Maintaining O2 sats in the 90s on 2 L nasal cannula. 04/05/2022 hypotensive during the night, systolic blood pressure dropped as low mid 70s required IV fluid bolus. Increased weakness, fatigued. This morning creatinine significantly worsened, BUN jumped to 57, creatinine increased to 3.49. Metformin and KAE inhibitor discontinued. Lasix held. Currently requiring 3 L nasal cannula to maintain O2 sats in the low 90s. ABGs noted. Chest x-ray reporting bilateral infiltrate and small right effusion, correlate for CHF, otherwise consider pneumonia. Objective - Vital Signs Vital signs: Vital Signs Temp 99.0 F 04/05/22 08:00 Pulse 90 04/05/22 10:05 Resp 22 04/05/22 09:24 BP 89/38 04/05/22 10:05 Pulse Ox 92 L 04/05/22 10:05 FiO2 Intake & Output 04/04/22 04/05/22 04/05/22 18:59 06:59 18:59 Intake Total 240 Output Total 400 400 Balance -160 -400 Weight 112 kg Intake: Oral 240 Output: Urine 400 400 Other: Voiding Method External Catheter External Catheter External Catheter - Exam - Exam General: [Patient sleepy, alert and oriented times 3. Fatigued.NAD HEENT: [PERRL. Pale conjunctiva,EOMI. No pharyngeal erythema or exudate.] Neck: Supple, no JVD Cardiac: [Heart regularly irregular No S3. No S4. No clicks, rubs. Grade 2 aortic murmur Lungs: No rhonchi, fine scattered crackles throughout Abdomen: [Soft, No mass. No organomegaly. Bowel sounds presnt and normoactive in all 4 quadrants.] Extremes: Decreased edema bilateral lower extremities at baseline, no cyanosis no claudication normal pulses] Skin: [Warm and dry, No rash.] - Labs CBC & Chem 7: 04/06/22 11:15 04/06/22 11:15 Labs: Abnormal Lab Results - Last 24 Hours (Table) 04/04/22 04/04/22 04/04/22 Range/Units 06:50 11:22 16:34 WBC 14.41 H (4.50-10.00) X 10*3/uL RBC 3.48 L (4.10-5.20) X 10*6/uL Hgb 8.7 L (12.0-15.0) g/dL Hct 29.1 L (37.2-46.3) % MCH 25.0 L (27.0-32.0) pg MCHC 29.9 L (32.0-37.0) g/dL RDW 18.0 H (11.5-14.5) % MPV 9.0 L (9.5-12.2) fL Immature Gran # 0.05 H (0.00-0.04) X 10*3/uL Neutrophils # 10.97 H (1.80-7.70) X 10*3/uL Monocytes # 1.35 H (0.20-1.00) X 10*3/uL ABG pCO2 (35-45) mmHg ABG HCO3 (21-25) mmol/L ABG Total CO2 (19-24) mmol/L ABG O2 Saturation (94-97) % Sodium (137-145) mmol/L Potassium (3.5-5.1) mmol/L Chloride (98-107) mmol/L Carbon Dioxide (22-30) mmol/L BUN (7-17) mg/dL Creatinine (0.52-1.04) mg/dL Glucose (74-99) mg/dL POC Glucose (mg/dL) 147 H 169 H (70-110) mg/dL Calcium (8.4-10.2) mg/dL 04/04/22 04/05/22 04/05/22 Range/Units 22:01 05:15 06:08 WBC (4.50-10.00) X 10*3/uL RBC (4.10-5.20) X 10*6/uL Hgb (12.0-15.0) g/dL Hct (37.2-46.3) % MCH (27.0-32.0) pg MCHC (32.0-37.0) g/dL RDW (11.5-14.5) % MPV (9.5-12.2) fL Immature Gran # (0.00-0.04) X 10*3/uL Neutrophils # (1.80-7.70) X 10*3/uL Monocytes # (0.20-1.00) X 10*3/uL ABG pCO2 53 H (35-45) mmHg ABG HCO3 32 H (21-25) mmol/L ABG Total CO2 33 H (19-24) mmol/L ABG O2 Saturation 98.0 H (94-97) % Sodium (137-145) mmol/L Potassium (3.5-5.1) mmol/L Chloride (98-107) mmol/L Carbon Dioxide (22-30) mmol/L BUN (7-17) mg/dL Creatinine (0.52-1.04) mg/dL Glucose (74-99) mg/dL POC Glucose (mg/dL) 172 H 118 H (70-110) mg/dL Calcium (8.4-10.2) mg/dL 04/05/22 04/05/22 04/05/22 Range/Units 07:17 07:17 07:19 WBC 14.9 H (4.50-10.00) X 10*3/uL RBC 3.15 L (4.10-5.20) X 10*6/uL Hgb 8.2 L (12.0-15.0) g/dL Hct 26.7 L (37.2-46.3) % MCH (27.0-32.0) pg MCHC 30.8 L (32.0-37.0) g/dL RDW 16.5 H (11.5-14.5) % MPV (9.5-12.2) fL Immature Gran # (0.00-0.04) X 10*3/uL Neutrophils # 11.5 H (1.80-7.70) X 10*3/uL Monocytes # 1.1 H (0.20-1.00) X 10*3/uL ABG pCO2 (35-45) mmHg ABG HCO3 (21-25) mmol/L ABG Total CO2 (19-24) mmol/L ABG O2 Saturation (94-97) % Sodium 129 L (137-145) mmol/L Potassium 5.3 H (3.5-5.1) mmol/L Chloride 90 L (98-107) mmol/L Carbon Dioxide 32 H (22-30) mmol/L BUN 47 H (7-17) mg/dL Creatinine 2.50 H (0.52-1.04) mg/dL Glucose 114 H (74-99) mg/dL POC Glucose (mg/dL) 127 H (70-110) mg/dL Calcium 7.8 L (8.4-10.2) mg/dL Assessment and Plan Assessment: (1) Acute on chronic diastolic (congestive) heart failure Current Visit: Yes Status: Acute Code(s): I50.33 - ACUTE ON CHRONIC DIASTOLIC (CONGESTIVE) HEART FAILURE SNOMED Code(s): 298451205 (2) COPD exacerbation Current Visit: Yes Status: Acute Code(s): J44.1 - CHRONIC OBSTRUCTIVE PULMONARY DISEASE W (ACUTE) EXACERBATION SNOMED Code(s): 109881841 (3) Hypoxia Current Visit: Yes Status: Acute Code(s): R09.02 - HYPOXEMIA SNOMED Code(s): 255207857 (4) Acquired hypothyroidism Current Visit: No Status: Acute Code(s): E03.9 - HYPOTHYROIDISM, UNSPECIFIED SNOMED Code(s): 246383051 (5) Acute exacerbation of chronic obstructive pulmonary disease Current Visit: No Status: Acute Code(s): J44.1 - CHRONIC OBSTRUCTIVE PULMONARY DISEASE W (ACUTE) EXACERBATION SNOMED Code(s): 790924472 (6) Acute pulmonary edema Current Visit: No Status: Acute Code(s): J81.0 - ACUTE PULMONARY EDEMA SNOMED Code(s): 76783121 (7) Acute renal failure secondary to medication induced including diuresing, subsequent hypotension Current Visit: No Status: Acute Code(s): N17.9 - ACUTE KIDNEY FAILURE, UNSPECIFIED SNOMED Code(s): 81533459 (8) Altered mental status Current Visit: No Status: Acute Code(s): R41.82 - ALTERED MENTAL STATUS, UNSPECIFIED SNOMED Code(s): 956475096 (9) CAD (coronary atherosclerotic disease) Current Visit: No Status: Acute Code(s): I25.10 - ATHSCL HEART DISEASE OF [place] CORONARY ARTERY W/O ANG PCTRS SNOMED Code(s): 872218080 (10) actively grieving, patient does of grandson and daughter as well as recent family diagnosed with cancer. (11) chronic back pain (12) paroxysmal atrial fibrillation (13) symptomatic anemia, status post 1 unit packed RBCs (14) acute metabolic encephalopathy secondary to hypotension, acute renal failure, fluid overload, possible infection. (15) hyperkalemia secondary to acute renal failure Plan: Continue on current medication regimen ,monitoring and symptomatic treatment. Discharge placed on hold as patient's condition declined overnight. Empiric antibiotics started as chest x-ray suggestive of potential infiltrate -possible pneumonia though appears more fluid overload . Neuro toxins discontinued including KAE inhibitor, metformin. Lasix held this morning. Pulmonary consulted regarding worsening respiratory status. Stool for occult blood. The impression and plan of care has been dictated as directed. : I performed a history and examination of this patient, discussed the same with the dictator. I agree with the dictator's note ,documented as a scribe. Any additional findings or plans will be noted.
[2022-04-06] MEDS ORDERED: FUROSEMIDE 10 MG/ML 10 ML VIAL IV STA (15:45)
[2022-04-06] MEDS ORDERED: SODIUM ZIRCONIUM CYCLOSILICATE 10 GM PACKET PO ONE (15:45)
--- NOTE | 2022-04-06 15:54 | P.PN ---
Subjective Progress Note Date: 04/06/22 Chief Complaint: Shortness of breath dyspnea (This is a 86-year-old female well-known to my practice with past medical history of COPD CHF monitor aortic stenosis coronary artery disease presented to the emergency department with shortness of breath. Patient was recently [facility] states that she has worsening shortness of breath or past several days, the dyspnea became clearly worse at 3 AM she took 3 of her nebulizer treatments without any improvement she does not wear oxygen at home upon EMS arrival O2 sats were in the mid 80s with increased work of breathing. Placed on nonrebreather denies fever chills or cough has been taking Lasix daily without missing any doses and Mr. worsening lower extremity edema patient was not on antibiotics or steroids no other alleviating or precipitating factors however patient does have chronic anemia as well.) 04/03/2022 Evaluated by cardiology. Bilateral lower extremity edema at baseline. Diuretics transitioned to oral as per cardiology. Renal function improving. Actively grieving, reports recent loss of grandson and daughter, as well as another family member recently diagnosed with cancer. Denies chest pain, palpit ations or increased shortness of breath. Maintaining O2 sats in the 90s on 2 L nasal cannula. 04/05/2022 hypotensive during the night, systolic blood pressure dropped as low mid 70s required IV fluid bolus. Increased weakness, fatigued. This morning creatinine significantly worsened, BUN jumped to 57, creatinine increased to 3.49. Metformin and KAE inhibitor discontinued. Lasix held. Currently requiring 3 L nasal cannula to maintain O2 sats in the low 90s. ABGs noted. Chest x-ray reporting bilateral infiltrate and small right effusion, correlate for CHF, otherwise consider pneumonia. 04/06/22 continued hypotension, last night, received additional IV fluids. Worsening renal function this morning, BUN 63, creatinine 4.16. Pro-calcitonin elevated 0.43, maintained on IV antibiotics of Rocephin. T-max 99.6, WBC 13. Stool for occult blood negative, Hemoglobin 8.3, platelets 410. Sodium 127, potassium 5.7. More alert today. Denies chest pain, palpitations. Objective - Vital Signs Vital signs: Vital Signs Temp 98.8 F 04/06/22 08:00 Pulse 92 04/06/22 11:11 Resp 12 04/06/22 08:00 BP 105/63 04/06/22 08:00 Pulse Ox 98 04/06/22 08:00 FiO2 Intake & Output 04/05/22 04/06/22 04/06/22 18:59 06:59 18:59 Other: Voiding Method External Catheter External Catheter # Voids 1 # Bowel Movements 1 - Exam - Exam General: [Patient alert and oriented times 3.tired, NAD HEENT: [PERRL. Pale conjunctiva,EOMI. No pharyngeal erythema or exudate.] Neck: Supple, no JVD Cardiac: [Heart regularly irregular No S3. No S4. No clicks, rubs. Grade 2 aortic murmur Lungs: No rhonchi, fine scattered crackles throughout Abdomen: [Soft, No mass. No organomegaly. Bowel sounds presnt and normoactive in all 4 quadrants.] Extremes: Decreased edema bilateral lower extremities at baseline, no cyanosis no claudication normal pulses] Skin: [Warm and dry, No rash.] - Labs CBC & Chem 7: 04/06/22 11:15 04/06/22 11:15 Labs: Abnormal Lab Results - Last 24 Hours (Table) 04/05/22 04/05/22 04/06/22 Range/Units 12:16 22:50 11:15 WBC (3.8-10.6) k/uL RBC (3.80-5.40) m/uL Hgb (11.4-16.0) gm/dL Hct (34.0-46.0) % MCHC (31.0-37.0) g/dL RDW (11.5-15.5) % Neutrophils # (1.3-7.7) k/uL Sodium 127 L 127 L (137-145) mmol/L Potassium 5.7 H 5.7 H (3.5-5.1) mmol/L Chloride 90 L 92 L (98-107) mmol/L BUN 57 H 63 H (7-17) mg/dL Creatinine 3.49 H 4.16 H (0.52-1.04) mg/dL Glucose 105 H 112 H (74-99) mg/dL Calcium 7.6 L 7.6 L (8.4-10.2) mg/dL Procalcitonin 0.43 H (0.02-0.09) ng/mL 10/06/22 Range/Units 11:15 WBC 13.0 H (3.8-10.6) k/uL RBC 3.28 L (3.80-5.40) m/uL Hgb 8.3 L (11.4-16.0) gm/dL Hct 27.7 L (34.0-46.0) % MCHC 29.9 L (31.0-37.0) g/dL RDW 16.3 H (11.5-15.5) % Neutrophils # 10.2 H (1.3-7.7) k/uL Sodium (137-145) mmol/L Potassium (3.5-5.1) mmol/L Chloride (98-107) mmol/L BUN (7-17) mg/dL Creatinine (0.52-1.04) mg/dL Glucose (74-99) mg/dL Calcium (8.4-10.2) mg/dL Procalcitonin (0.02-0.09) ng/mL Assessment and Plan Assessment: (1) Acute on chronic diastolic (congestive) heart failure Current Visit: Yes Status: Acute Code(s): I50.33 - ACUTE ON CHRONIC DIASTOLIC (CONGESTIVE) HEART FAILURE SNOMED Code(s): 935287083 (2) COPD exacerbation Current Visit: Yes Status: Acute Code(s): J44.1 - CHRONIC OBSTRUCTIVE PULMONARY DISEASE W (ACUTE) EXACERBATION SNOMED Code(s): 653278410 (3) Hypoxia Current Visit: Yes Status: Acute Code(s): R09.02 - HYPOXEMIA SNOMED C ode(s): 503681319 (4) Acquired hypothyroidism Current Visit: No Status: Acute Code(s): E03.9 - HYPOTHYROIDISM, UNSPECIFIED SNOMED Code(s): 777882319 (5) Acute exacerbation of chronic obstructive pulmonary disease Current Visit: No Status: Acute Code(s): J44.1 - CHRONIC OBSTRUCTIVE PULMONARY DISEASE W (ACUTE) EXACERBATION SNOMED Code(s): 048682888 (6) Acute pulmonary edema Current Visit: No Status: Acute Code(s): J81.0 - ACUTE PULMONARY EDEMA SNOMED Code(s): 68609388 (7) Acute renal failure secondary to medication induced including diuresing, subsequent hypotension Current Visit: No Status: Acute Code(s): N17.9 - ACUTE KIDNEY FAILURE, UNSPECIFIED SNOMED Code(s): 42636237 (8) Altered mental status, acute metabolic encephalopathy secondary to hypotension, acute renal failure, fluid overload, possible pneumonia Current Visit: No Status: Acute Code(s): R41.82 - ALTERED MENTAL STATUS, UNS PECIFIED SNOMED Code(s): 856804975 (9) CAD (coronary atherosclerotic disease) Current Visit: No Status: Acute Code(s): I25.10 - ATHSCL HEART DISEASE OF [place] CORONARY ARTERY W/O ANG PCTRS SNOMED Code(s): 980398102 (10) actively grieving, patient does of grandson and daughter as well as recent family diagnosed with cancer. (11) chronic back pain (12) paroxysmal atrial fibrillation (13) symptomatic anemia, status post 1 unit packed RBCs (14) hyperkalemia secondary to acute renal failure (15) possible right lower lobe pneumonia, pulmonary following Plan: Continue on current medication regimen ,monitoring and symptomatic treatment. Continue on IV antibiotics. Pulmonary and nephrology consult in place, recommendations pending. Diuretics decreased as per cardiology. Continue avoiding all nephrotoxins. Close monitoring of CBC, renal function, electrolytes with repeat labs ordered for a.m. Prognosis guarded given multiple complex medical issues. The impression and plan of care has been dictated as directed. : I performed a history and examination of this patient, discussed the same with the dictator. I agree with the dictator's note ,documented as a scribe. Any additional findings or plans will be noted.
[2022-04-06] MEDS: MIDODRINE 5 MG TAB PO SCH ×2 (17:43→18:00)
[2022-04-06 17:55] LABS: Appearance,Urine Turbid (Clear); Bilirubin,Urine Negative (Negative); Blood,Urine Moderate (Negative); Color,Urine Yellow; Glucose,Urine (UA) 1+ (Negative); Ketones,Urine Negative (Negative); Leukocyte Esterase,Urine Large (Negative); Nitrite,Urine Negative (Negative); Protein,Urine 2+ (Negative); RBC,Urine 35 /hpf (0-5); Squamous Epithelial Cell,Urine 6 /hpf (0-4); Urobilinogen,Urine <2.0 mg/dL (<2.0); WBC,Urine >182 /hpf (0-5)
[2022-04-06 17:56] LABS: Specific Gravity,Urine 1.014 (1.001-1.035)
[2022-04-06] MEDS: HYDROcodone/APAP 5-325MG 1 EACH TAB PO PRN (17:59)
[2022-04-06] MEDS: METOPROLOL TARTRATE 12.5 MG TAB PO SCH (22:18)
[2022-04-06] MEDS: CEFDINIR 300 MG CAP PO SCH (22:29)
[2022-04-06] MEDS: AMITRIPTYLINE HCL 50 MG TAB PO SCH (22:34)
[2022-04-07] MEDS: SODIUM CHLORIDE 0.9% 1,000 ML IV SCH ×3 (01:44→15:11)
[2022-04-07 08:41] LABS: Anion Gap 12 mmol/L; Blood Urea Nitrogen 64 mg/dL (7-17); Calcium 7.2 mg/dL (8.4-10.2); Carbon Dioxide 24 mmol/L (22-30); Chloride 92 mmol/L (98-107); Glucose 84 mg/dL (74-99); Potassium 5.9 mmol/L (3.5-5.1); Sodium 128 mmol/L (137-145)
[2022-04-07] MEDS: APIXABAN 2.5 MG TABLET PO SCH (08:46)
[2022-04-07] MEDS: CYANOCOBALAMIN 500 MCG TAB PO SCH (08:46)
[2022-04-07] MEDS: CEFDINIR 300 MG CAP PO SCH (08:46)
[2022-04-07] MEDS: LEVOTHYROXINE 50 MCG TAB PO SCH (08:46)
[2022-04-07] MEDS: MIDODRINE 5 MG TAB PO SCH ×3 (08:46→16:34)
[2022-04-07 08:47] LABS: African American GFR (CKD) 10 (>60 ml/min/1.73 sqM); Non-African American GFR(CKD) 8 (>60 ml/min/1.73 sqM)
[2022-04-07] MEDS: IPRATROPIUM 0.5 MG/2.5 ML NEBU INHALATION SCH ×4 (08:47→20:54)
[2022-04-07] MEDS: SYMBICORT 80-4.5 MCG INHALER INHALATION SCH ×2 (08:47→20:55)
[2022-04-07 09:13] LABS: Anisocytosis Slight; Basophils % (A) 0 %; Eosinophils # (A) 0.4 k/uL (0-0.7); Eosinophils % (A) 4 %; HCT 27.2 % (34.0-46.0); HGB 7.9 gm/dL (11.4-16.0); Hypochromasia Marked; Lymphocytes # (A) 1.1 k/uL (1.0-4.8); Lymphocytes % (A) 10 %; MCH 24.3 pg (25.0-35.0); MCHC 29.2 g/dL (31.0-37.0); MCV 83.2 fL (80.0-100.0); Monocytes # (A) 0.8 k/uL (0-1.0); Monocytes % (A) 8 %; Neutrophils # (A) 7.9 k/uL (1.3-7.7); Neutrophils % (A) 75 %; Platelet Count 409 k/uL (150-450); RBC 3.27 m/uL (3.80-5.40); RDW 16.3 % (11.5-15.5); WBC 10.5 k/uL (3.8-10.6)
[2022-04-07] MEDS ORDERED: DEXTROSE 50% SYRINGE 50 ML IVP STA (09:13)
[2022-04-07] MEDS ORDERED: INSULIN REGULAR 100 UNIT/ML VIAL (IV) IV ONE (09:13)
[2022-04-07] MEDS ORDERED: SODIUM ZIRCONIUM CYCLOSILICATE 10 GM PACKET PO ONE (09:14)
[2022-04-07] MEDS: GABAPENTIN 100 MG CAP PO SCH ×3 (11:07→21:15)
--- NOTE | 2022-04-07 11:43 | P.PN ---
Subjective Patient is seen for follow-up for acute kidney injury mostly associated with hypotension. Patient was also recently diuresed. Ultrasound shows no evidence of hydronephrosis. Currently patient has an external catheter with urine output is not accurately charted. Only 2 50 mL documented. Started on IV fluids yesterday Serum creatinine further increased to 4.49 today. No complaints of chest pains or shortness of breath. Potassium at 5.9 today Concern for underlying GI bleed as hemoglobin has also dropped Objective - Vital Signs Vital signs: Vital Signs Temp 98.4 F 04/07/22 08:00 Pulse 80 04/07/22 08:57 Resp 17 04/07/22 08:00 BP 115/45 04/07/22 08:44 Pulse Ox 96 04/07/22 08:00 FiO2 Intake & Output 04/06/22 04/07/22 04/07/22 18:59 06:59 18:59 Output Total 250 Balance -250 Output: Urine 250 Other: Voiding Method External Catheter External Catheter Indwelling Catheter # Bowel Movements 1 - Exam Awake, comfortable, not in any acute distress Examination of the heart S1 and S2 Examination lungs bilateral breath sounds are heard Abdomen is soft nontender obese Examination lower extremity shows trace edema bilaterally [employer] exam grossly intact - Labs CBC & Chem 7: 04/07/22 06:48 04/07/22 06:48 Labs: Abnormal Lab Results - Last 24 Hours (Table) 04/06/22 04/06/22 04/06/22 Range/Units 11:15 11:15 17:43 WBC 13.0 H (3.8-10.6) k/uL RBC 3.28 L (3.80-5.40) m/uL Hgb 8.3 L (11.4-16.0) gm/dL Hct 27.7 L (34.0-46.0) % MCH (25.0-35.0) pg MCHC 29.9 L (31.0-37.0) g/dL RDW 16.3 H (11.5-15.5) % Neutrophils # 10.2 H (1.3-7.7) k/uL Sodium 127 L (137-145) mmol/L Potassium 5.7 H (3.5-5.1) mmol/L Chloride 92 L (98-107) mmol/L BUN 63 H (7-17) mg/dL Creatinine 4.16 H (0.52-1.04) mg/dL Glucose 112 H (74-99) mg/dL Calcium 7.6 L (8.4-10.2) mg/dL Urine Appearance Turbid H (Clear) Urine Protein 2+ H (Negative) Urine Glucose (UA) 1+ H (Negative) Urine Blood Moderate H (Negative) Ur Leukocyte Esterase Large H (Negative) Urine RBC 35 H (0-5) /hpf Urine WBC >182 H (0-5) /hpf Urine WBC Clumps Many H (None) /hpf Ur Squamous Epith Cells 6 H (0-4) /hpf 04/07/22 04/07/22 Range/Units 06:48 06:48 WBC (3.8-10.6) k/uL RBC 3.27 L (3.80-5.40) m/uL Hgb 7.9 L (11.4-16.0) gm/dL Hct 27.2 L (34.0-46.0) % MCH 24.3 L (25.0-35.0) pg MCHC 29.2 L (31.0-37.0) g/dL RDW 16.3 H (11.5-15.5) % Neutrophils # 7.9 H (1.3-7.7) k/uL Sodium 128 L (137-145) mmol/L Potassium 5.9 H (3.5-5.1) mmol/L Chloride 92 L (98-107) mmol/L BUN 64 H (7-17) mg/dL Creatinine 4.49 H (0.52-1.04) mg/dL Glucose (74-99) mg/dL Calcium 7.2 L (8.4-10.2) mg/dL Urine Appearance (Clear) Urine Protein (Negative) Urine Glucose (UA) (Negative) Urine Blood (Negative) Ur Leukocyte Esterase (Negative) Urine RBC (0-5) /hpf Urine WBC (0-5) /hpf Urine WBC Clumps (None) /hpf Ur Squamous Epith Cells (0-4) /hpf Microbiology - Last 24 Hours (Table) 04/06/22 17:43 Urine Culture - Preliminary Urine,Clean Catch Assessment and Plan Assessment: 1. Acute kidney injury secondary to hypotension causing ischemic ATN, no obstruction noted on ultrasound. KAE inhibitor's been held. UA suggestive of UTI 2. Hypotension, add midodrine. Check random cortisol level. Ejection fraction 60-65%. Started on IV fluids yesterday 3. Hyperkalemia associated with acute kidney injury, and KAE inhibitor's, rule out urine retention. Possibility of underlying GI bleed is also entertained given the drop in hemoglobin. 4. Hyponatremia, possibly hypovolemic. Will challenge with IV fluids 5. Coronary artery disease with history of coronary artery stent 6. Paroxysmal A. fib maintained on liquids 7. Obstructive sleep apnea 8. Chronic kidney disease NKF stage III with baseline creatinine about 1.2-1.4 mg/dL. Etiology is likely nephrosclerosis. 9. Anemia rule out GI bleed 10 diastolic heart failure with acute exacerbation on initial admission currently improved. Plan: Continue midodrine Continue off of KAE inhibitor's Treat hyperkalemia with IV medications and lokelma Repeat labs in a.m.
[2022-04-07] MEDS: FUROSEMIDE 40 MG TAB PO SCH (12:10)
--- NOTE | 2022-04-07 12:47 | P.PN ---
Subjective Progress Note Date: 04/07/22 86-year-old female admitted back on March 31, to the emergency department, with complaints of shortness of breath. The patient has a history of COPD, CHF, aortic stenosis, and coronary artery disease. The patient was recently in the hospital, and seen by our group, for CHF. The patient apparently was ready for discharge, and an x-ray shows some infiltrate, and for that reason, we were consulted. The patient does complain of shortness of breath, and cough. Producing a small amount of phlegm. No fever or chills. No chest pain or chest discomfort. She was initially seen by Dr. Anderson in the emergency room, and admitted with a diagnosis of acute on chronic diastolic CHF, hypoxia, and COPD e xacerbation. We were not consulted when she first came into the hospital. Currently, the patient's on 3 L of oxygen. She is not receiving any IV fluids. She is a former smoker who quit in 1974. She was taking albuterol, and Trelegy, at home. White count 13, hemoglobin 8.3, hematocrit 27.7, and platelet count 410,000. Sodium 127, potassium 5.7, chlorides 92, CO2 23, anion gap 12, BUN 63, and creatinine 4.16. Her creatinine on admission was only 1.39. Chest x-ray on admission was consistent with CHF, with a right-sided pleural effusion. Chest x-ray on April 05, shows mild fluid overload, and a right-sided effusion. There could be an infiltrate at the lung base, particular on the right side. Also, the patient's pro-calcitonin level was elevated at 0.43. The patient is seen today 04/07/2022 in follow-up on the regular medical floor. She is currently resting comfortably in bed. Awake and alert in no acute distress. Maintaining O2 saturations in the 90s on 3 L/m per nasal cannula. White count 10.5. Hemoglobin 7.9. Platelets 409. Sodium 128. Potassium 5.9. BUN 64. Creatinine 4.49. Urinalysis with large WBCs. Continue on Symbicort, albuterol, diuretics. Anticoagulated with Eliquis. Antibiotics in the form of Omnicef. Objective - Vital Signs Vital signs: Vital Signs Temp 98.4 F 04/07/22 08:00 Pulse 72 04/07/22 12:08 Resp 17 04/07/22 08:00 BP 99/61 04/07/22 12:06 Pulse Ox 96 04/07/22 12:06 FiO2 Intake & Output 04/06/22 04/07/22 04/07/22 18:59 06:59 18:59 Output Total 250 420 Balance -250 -420 Output: Urine 250 420 Uretheral ([place]) 420 Other: Voiding Method External Catheter External Catheter Indwelling Catheter # Bowel Movements 1 - Exam GENERAL EXAM: Alert, 86-year-old female, on 3 L nasal cannula, comfortable in no apparent distress. HEAD: Normocephalic. EYES: Normal reaction of pupils, equal size. NOSE: Clear with pink turbinates. THROAT: No erythema or exudates. NECK: No masses, no JVD. CHEST: No chest wall deformity. LUNGS: Equal air entry with few crackles in the posterior bases. CVS: S1 and S2 normal with no audible murmur, regular rhythm. ABDOMEN: No hepatosplenomegaly, normal bowel sounds, no guarding or rigidity. SPINE: No scoliosis or deformity SKIN: No rashes CENTRAL NERVOUS SYSTEM: No focal deficits, tone is normal in all 4 extremities. EXTREMITIES: There is 1+ peripheral edema. No clubbing, no cyanosis. Peripheral pulses are intact. - Labs CBC & Chem 7: 04/07/22 06:48 04/07/22 06:48 Labs: Abnormal Lab Results - Last 24 Hours (Table) 04/06/22 04/07/22 04/07/22 Range/Units 17:43 06:48 06:48 RBC 3.27 L (3.80-5.40) m/uL Hgb 7.9 L (11.4-16.0) gm/dL Hct 27.2 L (34.0-46.0) % MCH 24.3 L (25.0-35.0) pg MCHC 29.2 L (31.0-37.0) g/dL RDW 16.3 H (11.5-15.5) % Neutrophils # 7.9 H (1.3-7.7) k/uL Sodium 128 L (137-145) mmol/L Potassium 5.9 H (3.5-5.1) mmol/L Chloride 92 L (98-107) mmol/L BUN 64 H (7-17) mg/dL Creatinine 4.49 H (0.52-1.04) mg/dL Calcium 7.2 L (8.4-10.2) mg/dL Urine Appearance Turbid H (Clear) Urine Protein 2+ H (Negative) Urine Glucose (UA) 1+ H (Negative) Urine Blood Moderate H (Negative) Ur Leukocyte Esterase Large H (Negative) Urine RBC 35 H (0-5) /hpf Urine WBC >182 H (0-5) /hpf Urine WBC Clumps Many H (None) /hpf Ur Squamous Epith Cells 6 H (0-4) /hpf Microbiology - Last 24 Hours (Table) 04/06/22 17:43 Urine Culture - Preliminary Urine,Clean Catch Assessment and Plan Assessment: Acute hypoxic respiratory failure secondary to fluid overload/CHF, complicated by worsening renal failure. A limited infiltrate/pneumonia, right lung base, cannot be excluded. Currently on Omnicef History of COPD, from previous history of tobacco use. History of chronic diastolic CHF. CAD with previous stent placement. History of moderate aortic stenosis. History of CVA/TIA. History of diabetes mellitus. Morbid obesity. Hyperlipidemia. Hypertension. Hypothyroidism. Multiple other medical problems and comorbidities. Plan: The patient was seen and evaluated Stable from the pulmonary standpoint Continue current treatment plan Discharged to ECF once cleared by medicine I have personally seen and examined the patient, performed the documentation and the assessment and plan as written. Number of minutes spent on the visit: 10.
--- NOTE | 2022-04-07 12:50 | P.PN ---
Subjective This is a 86-year-old female with a past medical history significant for coronary artery disease with previous PCI to OM 1, proximal and mid LAD 09/2021 and moderate to severe disease in RCA, paroxysmal atrial fibrillation on Eliquis, aortic stenosis, obstructive sleep apnea, hypertension, hyperlipidemia, type 2 diabetes, chronic kidney disease, and former nicotine dependence. Patient follows in the office with Dr. Case. We have been asked to see in consultation for congestive heart failure. Patient presents emergency department with worsening shortness of breath. She was started on IV Lasix, her symptoms have improved. Patient seen and examined at bedside, she is alert, oriented x 3. No complaints. Denies any shortness of breath, chest pain, orthopnea or PND. BP has improved. Renal function has worsened, nephrology is following, given IV Lasix yesterday per nephrology. Blood pressure 115/45 heart rate 80, afebrile, saturation 96% on 3 L nasal cannula Labs sodium 128, potassium 5.9, BUN 64, serum creatinine 4.4 GENERAL: In no acute distress. NECK: Supple without JVD LUNGS: Breath sounds clear to auscultation bilaterally, diminished in bases. Respiration equal and unlabored. HEART: Regular rate and rhythm with systolic murmur at right sternal border. No rubs or gallops. S1 and S2 heard. EXTREMITIES: Normal range of motion, no edema. No clubbing or cyanosis. Peripheral pulses intact. ASSESSMENT Acute on chronic heart failure with preserved ejection fraction Symptomatically anemia, status post 1 unit PRBCs. Coronary artery disease with previous PCI to OM 1, proximal and mid LAD 09/2021 and moderate to severe disease in RCA Paroxysmal atrial fibrillation on Eliquis Aortic stenosis Obstructive sleep apnea History of hypertension Hyperlipidemia Type 2 diabetes Chronic kidney disease Former nicotine dependence Acute kidney injury Hyperkalemia PLAN Nephrology following and managing diuresis, currently on IV fluids Anticoagulated with Eliquis ACEI on hold secondary to acute kidney injury and hypotension, continue to hold. Continue statin Continue beta dejan Monitor renal function and electrolytes From a cardiology perspective, no further changes at this time. We will follow the patient as needed. Please reconsult if needed. Nurse Practitioner note has been reviewed, I agree with a documented findings and plan of care. Patient was seen and examined. Objective - Vital Signs Vital signs: Vital Signs Temp 98.4 F 04/07/22 08:00 Pulse 80 04/07/22 08:57 Resp 17 04/07/22 08:00 BP 115/45 04/07/22 08:44 Pulse Ox 96 04/07/22 08:00 FiO2 Intake & Output 04/06/22 04/07/22 04/07/22 18:59 06:59 18:59 Output Total 250 Balance -250 Output: Urine 250 Other: Voiding Method External Catheter External Catheter # Bowel Movements 1 - Labs CBC & Chem 7: 04/07/22 06:48 04/07/22 06:48 Labs: Abnormal Lab Results - Last 24 Hours (Table) 04/06/22 04/06/22 04/06/22 Range/Units 11:15 11:15 17:43 WBC 13.0 H (3.8-10.6) k/uL RBC 3.28 L (3.80-5.40) m/uL Hgb 8.3 L (11.4-16.0) gm/dL Hct 27.7 L (34.0-46.0) % MCH (25.0-35.0) pg MCHC 29.9 L (31.0-37.0) g/dL RDW 16.3 H (11.5-15.5) % Neutrophils # 10.2 H (1.3-7.7) k/uL Sodium 127 L (137-145) mmol/L Potassium 5.7 H (3.5-5.1) mmol/L Chloride 92 L (98-107) mmol/L BUN 63 H (7-17) mg/dL Creatinine 4.16 H (0.52-1.04) mg/dL Glucose 112 H (74-99) mg/dL Calcium 7.6 L (8.4-10.2) mg/dL Urine Appearance Turbid H (Clear) Urine Protein 2+ H (Negative) Urine Glucose (UA) 1+ H (Negative) Urine Blood Moderate H (Negative) Ur Leukocyte Esterase Large H (Negative) Urine RBC 35 H (0-5) /hpf Urine WBC >182 H (0-5) /hpf Urine WBC Clumps Many H (None) /hpf Ur Squamous Epith Cells 6 H (0-4) /hpf 04/07/22 04/07/22 Range/Units 06:48 06:48 WBC (3.8-10.6) k/uL RBC 3.27 L (3.80-5.40) m/uL Hgb 7.9 L (11.4-16.0) gm/dL Hct 27.2 L (34.0-46.0) % MCH 24.3 L (25.0-35.0) pg MCHC 29.2 L (31.0-37.0) g/dL RDW 16.3 H (11.5-15.5) % Neutrophils # 7.9 H (1.3-7.7) k/uL Sodium 128 L (137-145) mmol/L Potassium 5.9 H (3.5-5.1) mmol/L Chloride 92 L (98-107) mmol/L BUN 64 H (7-17) mg/dL Creatinine 4.49 H (0.52-1.04) mg/dL Glucose (74-99) mg/dL Calcium 7.2 L (8.4-10.2) mg/dL Urine Appearance (Clear) Urine Protein (Negative) Urine Glucose (UA) (Negative) Urine Blood (Negative) Ur Leukocyte Esterase (Negative) Urine RBC (0-5) /hpf Urine WBC (0-5) /hpf Urine WBC Clumps (None) /hpf Ur Squamous Epith Cells (0-4) /hpf Microbiology - Last 24 Hours (Table) 04/06/22 17:43 Urine Culture - Preliminary Urine,Clean Catch
[2022-04-07] MEDS: METOPROLOL TARTRATE 12.5 MG TAB PO SCH ×2 (13:01→21:15)
--- NOTE | 2022-04-07 16:01 | P.PN ---
Subjective (This is a 86-year-old female well-known to my practice with past medical history of COPD CHF monitor aortic stenosis coronary artery disease presented to the emergency department with shortness of breath. Patient was recently hospitalized states that she has worsening shortness of breath or past several days, the dyspnea became clearly worse at 3 AM she took 3 of her nebulizer treatments without any improvement she does not wear oxygen at home upon EMS arrival O2 sats were in the mid 80s with increased work of breathing. Placed on nonrebreather denies fever chills or cough has been taking Lasix daily without missing any doses and MrIgnacio worsening lower extremity edema patient was not on antibiotics or steroids no other alleviating or precipitating factors however patient does have chronic anemia as well.) 04/03/2022 Evaluated by cardiology. Bilateral lower extremity edema at baseline. Diuretics transitioned to oral as per cardiology. Renal function improving. Actively grieving, reports recent loss of grandson and daughter, as well as another family member recently diagnosed with cancer. Denies chest pain, palpitations or increased shortness of breath. Maintaining O2 sats in the 90s on 2 L nasal cannula. 04/05/2022 hypotensive during the night, systolic blood pressure dropped as low mid 70s required IV fluid bolus. Increased weakness, fatigued. This morning creatinine significantly worsened, BUN jumped to 57, creatinine increased to 3.49. Metformin and KAE inhibitor discontinued. Lasix held. Currently req uiring 3 L nasal cannula to maintain O2 sats in the low 90s. ABGs noted. Chest x-ray reporting bilateral infiltrate and small right effusion, correlate for CHF, otherwise consider pneumonia. 04/06/22 continued hypotension, last night, received additional IV fluids. Worsening renal function this morning, BUN 63, creatinine 4.16. Pro-calcitonin elevated 0.43, maintained on IV antibiotics of Rocephin. T-max 99.6, WBC 13. Stool for occult blood negative, Hemoglobin 8.3, platelets 410. Sodium 127, potassium 5.7. More alert today. Denies chest pain, palpitations. April 07, 2022: patient is reevaluated for her hypotension, Worsening acute on chronic renal failure and her recent CHF.Vitals remain stable. Her blood pressures improved and has remained improved for the past 36 hours. Laboratory studies currently share hemoglobin 79. Her BUN is now 64 current and 4.49, sodium is 128, potassium 5.9. Nephrology is following this. Pulmonology been following her as well Concepcion has her at bedside. She just feels fatigued and weak. She's developed a stage two pressure ulcer to her coccyx. Objective - Vital Signs Vital signs: Vital Signs Temp 98.4 F 04/07/22 08:00 Pulse 90 04/07/22 12:45 Resp 17 04/07/22 08:00 BP 136/81 04/07/22 12:45 Pulse Ox 96 04/07/22 12:06 FiO2 Intake & Output 04/06/22 04/07/22 04/07/22 18:59 06:59 18:59 Output Total 250 420 Balance -250 -420 Output: Urine 250 420 Uretheral ([place]yl[place]) 420 Other: Voiding Method External Catheter External Catheter Indwelling Catheter # Bowel Movements 1 - Exam General: [Patient alert and oriented times 3.tired, NAD Neck: Supple, no JVD Cardiac: [Heart regularly irregular No S3. No S4. No clicks, rubs. 2/6 systolic aortic murmur Lungs: No rhonchi, fine scattered crackles throughout Abdomen: [Soft, No mass. No organomegaly. Bowel sounds presnt and normoactive in all 4 quadrants.] Extremes: Decreased edema bilateral lower extremities at baseline, no cyanosis no claudication normal pulses] Skin: [Warm and dry, No rash.] - Labs CBC & Chem 7: 04/07/22 06:48 04/07/22 06:48 Labs: Abnormal Lab Results - Last 24 Hours (Table) 04/06/22 04/07/22 04/07/22 Range/Units 17:43 06:48 06:48 RBC 3.27 L (3.80-5.40) m/uL Hgb 7.9 L (11.4-16.0) gm/dL Hct 27.2 L (34.0-46.0) % MCH 24.3 L (25.0-35.0) pg MCHC 29.2 L (31.0-37.0) g/dL RDW 16.3 H (11.5-15.5) % Neutrophils # 7.9 H (1.3-7.7) k/uL Sodium 128 L (137-145) mmol/L Potassium 5.9 H (3.5-5.1) mmol/L Chloride 92 L (98-107) mmol/L BUN 64 H (7-17) mg/dL Creatinine 4.49 H (0.52-1.04) mg/dL Calcium 7.2 L (8.4-10.2) mg/dL Urine Appearance Turbid H (Clear) Urine Protein 2+ H (Negative) Urine Glucose (UA) 1+ H (Negative) Urine Blood Moderate H (Negative) Ur Leukocyte Esterase Large H (Negative) Urine RBC 35 H (0-5) /hpf Urine WBC >182 H (0-5) /hpf Urine WBC Clumps Many H (None) /hpf Ur Squamous Epith Cells 6 H (0-4) /hpf Microbiology - Last 24 Hours (Table) 04/06/22 17:43 Urine Culture - Preliminary Urine,Clean Catch Assessment and Plan (1) Acute on chronic diastolic (congestive) heart failure Current Visit: Yes Status: Acute Code(s): I50.33 - ACUTE ON CHRONIC DIASTOLIC (CONGESTIVE) HEART FAILURE SNOMED Code(s): 323358635 (2) Acute on chronic renal failure Current Visit: Yes Status: Acute Code(s): N17.9 - ACUTE KIDNEY FAILURE, UNSPECIFIED; N18.9 - CHRONIC KIDNEY DISEASE, UNSPECIFIED SNOMED Code(s): 915382486 (3) Anemia Current Visit: Yes Status: Acute Code(s): D64.9 - ANEMIA, UNSPECIFIED SNOMED Code(s): 840229844 (4) COPD exacerbation Current Visit: Yes Status: Acute Code(s): J44.1 - CHRONIC OBSTRUCTIVE PULMONARY DISEASE W (ACUTE) EXACERBATION SNOMED Code(s): 307333664 (5) Hypoxia Current Visit: Yes Status: Acute Code(s): R09.02 - HYPOXEMIA SNOMED Code(s): 340997342 (6) Acquired hypothyroidism Current Visit: No Status: Acute Code(s): E03.9 - HYPOTHYROIDISM, UNSPECIFIED SNOMED Code(s): 113566784 (7) Acute pulmonary edema Current Visit: No Status: Acute Code(s): J81.0 - ACUTE PULMONARY EDEMA SNOMED Code(s): 27633398 (8) Acute renal failure Current Visit: No Status: Acute Code(s): N17.9 - ACUTE KIDNEY FAILURE, UNSPECIFIED SNOMED Code(s): 79366081 (9) CAD (coronary atherosclerotic disease) Current Visit: No Status: Acute Code(s): I25.10 - ATHSCL HEART DISEASE OF [place] CORONARY ARTERY W/O ANG PCTRS SNOMED Code(s): 294515865 (10) Generalized weakness Current Visit: No Status: Acute Code(s): R53.1 - WEAKNESS SNOMED Code(s): 80118205 (11) Hyperkalemia Current Visit: No Status: Acute Code(s): E87.5 - HYPERKALEMIA SNOMED Code(s): 98388878 (12) Type 2 diabetes mellitus without complications Current Visit: No Status: Acute Code(s): E11.9 - TYPE 2 DIABETES MELLITUS WITHOUT COMPLICATIONS SNOMED Code(s): 780664848 (13) Urinary tract infection Current Visit: No Status: Acute Code(s): N39.0 - URINARY TRACT INFECTION, SITE NOT SPECIFIED SNOMED Code(s): 89224583 Plan: Will repeat labs in a.m., wait on for the recommendations from nephrology and pulmonology, consul general surgery for possible G.I. bleed, will consider holding her anticoagulants based on a persistent anemia.Should be reevaluated in the next 24 hours
[2022-04-07] MEDS: HYDROcodone/APAP 5-325MG 1 EACH TAB PO PRN ×2 (16:40→22:46)
[2022-04-07] MEDS: ATORVASTATIN 40 MG TAB PO SCH (21:15)
[2022-04-07] MEDS: AMITRIPTYLINE HCL 50 MG TAB PO SCH (21:15)
[2022-04-08] MEDS: SODIUM CHLORIDE 0.9% 1,000 ML IV SCH ×2 (06:22→22:35)
[2022-04-08 08:10] LABS: Anisocytosis Slight; Basophils % (A) 1 %; Eosinophils # (A) 0.5 k/uL (0-0.7); Eosinophils % (A) 7 %; HCT 26.5 % (34.0-46.0); HGB 7.8 gm/dL (11.4-16.0); Hypochromasia Marked; Lymphocytes # (A) 0.9 k/uL (1.0-4.8); Lymphocytes % (A) 13 %; MCH 25.1 pg (25.0-35.0); MCHC 29.3 g/dL (31.0-37.0); MCV 85.6 fL (80.0-100.0); Mean Platelet Volume 8.2; Monocytes # (A) 0.6 k/uL (0-1.0); Monocytes % (A) 8 %; Neutrophils # (A) 4.8 k/uL (1.3-7.7); Neutrophils % (A) 69 %; Platelet Count 450 k/uL (150-450); RBC 3.09 m/uL (3.80-5.40); RDW 16.4 % (11.5-15.5); WBC 6.9 k/uL (3.8-10.6)
[2022-04-08 08:26] LABS: African American GFR (CKD) 15 (>60 ml/min/1.73 sqM); Anion Gap 9 mmol/L; Blood Urea Nitrogen 60 mg/dL (7-17); Calcium 7.2 mg/dL (8.4-10.2); Carbon Dioxide 25 mmol/L (22-30); Chloride 97 mmol/L (98-107); Glucose 90 mg/dL (74-99); Non-African American GFR(CKD) 13 (>60 ml/min/1.73 sqM); Potassium 5.2 mmol/L (3.5-5.1); Sodium 131 mmol/L (137-145)
[2022-04-08] MEDS: METOPROLOL TARTRATE 12.5 MG TAB PO SCH ×2 (08:37→22:36)
[2022-04-08] MEDS: GABAPENTIN 100 MG CAP PO SCH ×3 (08:38→22:36)
[2022-04-08] MEDS: CEFDINIR 300 MG CAP PO SCH (08:38)
[2022-04-08] MEDS: LEVOTHYROXINE 50 MCG TAB PO SCH (08:38)
[2022-04-08] MEDS: MIDODRINE 5 MG TAB PO SCH ×3 (08:38→18:16)
[2022-04-08] MEDS: CYANOCOBALAMIN 500 MCG TAB PO SCH (08:38)
[2022-04-08] MEDS: FUROSEMIDE 40 MG TAB PO SCH (08:38)
[2022-04-08] MEDS: IPRATROPIUM 0.5 MG/2.5 ML NEBU INHALATION SCH ×4 (08:46→21:08)
[2022-04-08] MEDS: SYMBICORT 80-4.5 MCG INHALER INHALATION SCH ×2 (08:47→21:08)
--- NOTE | 2022-04-08 10:48 | P.GSCN ---
History of Present Illness Consult date: 04/08/22 Reason for Consult: Anemia, possible GI bleed History of present illness: Is a 86-year-old female who's [facility] with anemia. Patient is unsure if she's had any GI bleed. She is unsure when her last endoscopy was performed. She denies any abdominal pain. Past Medical History Past Medical History: Chest Pain / Angina, Heart Failure, COPD, CVA/TIA, Diabetes Mellitus, Hyperlipidemia, Hypertension, Osteoarthritis (OA), Thyroid Disorder Additional Past Medical History / Comment(s): Using a wheelchair or a walker, bilateral peripheral neuropathy in feet and hands, chronic low back pain, lower leg edema. Last Myocardial Infarction Date:: 06/17/18 History of Any Multi-Drug Resistant Organisms: ESBL Year Discovered:: 09/06/17 MDRO Source:: ESBL URINE Past Surgical History: Back Surgery, Heart Catheterization, Heart Catheterization With Stent, Joint Replacement, Orthopedic Surgery Additional Past Surgical History / Comment(s): Lumbar laminectomy decompression fusion L3-4 and L5-S1 with cell saver, lumbar instrumentation removal L4-5, L4- L5 laminectomy, BILATERAL KNEE REPLACEMENTS, ORIF RIGHT ANKLE, CERVICAL FUSION, bilateral rotator cuff repair, bilateral wrist carpal tunnel releases, pain procedures, left breast lumpectomy-benign, bilateral varicose vein stripping, bilateral cataracts, heart cath with 5 stents august-2021 Past Anesthesia/Blood Transfusion Reactions: No Reported Reaction Additional Past Anesthesia/Blood Transfusion Reaction / Comm: Pt states she has never received blood. Date of Last Stent Placement:: 08/30/2021 Past Psychological History: No Psychological Hx Reported Additional Psychological History / Comment(s): . Smoking Status: Former smoker Past Alcohol Use History: None Reported Additional Past Alcohol Use History / Comment(s): Pt started smoking in 1955 and quit in 1974. She was a 1.5 ppd smoker. Past Drug Use History: None Reported - Past Family History Father Family Medical History: Myocardial Infarction ([place]) Additional Family Medical History / Comment(s): Father at 40 of a [place]. Mother Family Medical History: CVA/TIA Additional Family Medical History / Comment(s): Mother had a CVA Medications and Allergies Home Medications Medication Instructions Recorded Confirmed Type Nitroglycerin Sl Tabs [Nitrostat] 0.4 mg SL Q5M PRN 07/20/15 03/31/22 History Atorvastatin Calcium [Lipitor] 40 mg PO HS #1 tab 08/04/15 03/31/22 Rx Cyanocobalamin [Vitamin B-12 1,000 mcg SQ Q30D 07/06/19 03/31/22 History Injection] Levothyroxine Sodium [Synthroid] 50 mcg PO AC-BRKFST 07/06/19 03/31/22 History Albuterol Nebulized [Ventolin 2.5 mg INHALATION RT-QID PRN 02/19/20 03/31/22 History Nebulized] Fluticasone/Umeclidin/Vilanter 1 puff INHALATION RT-HS 10/15/21 03/31/22 History [Trelegy Ellipta 100-62.5-25] Apixaban [Eliquis] 2.5 mg PO BID 12/09/21 03/31/22 History Empagliflozin [Jardiance] 10 mg PO DAILY 12/09/21 03/31/22 History Amitriptyline HCl [Elavil] 100 mg PO HS 03/13/22 03/31/22 History Cyanocobalamin (Vitamin B-12) 1,000 mcg PO DAILY 03/13/22 03/31/22 History [Vitamin B-12] Gloria Root 550mg 1 tab PO DAILY 03/13/22 03/31/22 History Pioglitazone [Actos] 30 mg PO DAILY 03/13/22 03/31/22 History lisinopriL [Zestril] 10 mg PO BID 03/13/22 03/31/22 History metFORMIN HCL 1,000 mg PO BID@1800,2100 03/13/22 03/31/22 History Furosemide [Lasix] 40 mg PO BID@0900,1600 tab 04/04/22 Rx Gabapentin 300 mg PO TID #9 cap 04/04/22 Rx HYDROcodone/APAP 5-325MG [[place] 1 tab PO TID PRN #9 04/04/22 03/31/22 Rx 5-325] Metoprolol Tartrate [Lopressor] 25 mg PO BID tab 04/04/22 Rx Allergies Allergy/AdvReac Type Severity Reaction Status Date / Time Penicillins Allergy Rash/Hives Verified 03/31/22 20:25 Surgical - Exam Vital Signs Pulse Resp BP Pulse Ox 100 22 158/80 100 03/31/22 17:09 03/31/22 17:09 03/31/22 17:09 03/31/22 17:09 - General well developed, well nourished, no distress - Eyes PERRL - ENT normal pinna - Neck no masses - Respiratory normal expansion - Cardiovascular Rhythm: regular - Abdomen Abdomen: soft, non tender Results - Labs 04/08/22 06:51 04/08/22 06:51 Abnormal Lab Results - Last 24 Hours (Table) 04/08/22 04/08/22 Range/Units 06:51 06:51 RBC 3.09 L (3.80-5.40) m/uL Hgb 7.8 L (11.4-16.0) gm/dL Hct 26.5 L (34.0-46.0) % MCHC 29.3 L (31.0-37.0) g/dL RDW 16.4 H (11.5-15.5) % Lymphocytes # 0.9 L (1.0-4.8) k/uL Sodium 131 L (137-145) mmol/L Potassium 5.2 H (3.5-5.1) mmol/L Chloride 97 L (98-107) mmol/L BUN 60 H (7-17) mg/dL Creatinine 3.09 H (0.52-1.04) mg/dL Calcium 7.2 L (8.4-10.2) mg/dL Microbiology - Last 24 Hours (Table) 04/06/22 17:43 Urine Culture - Preliminary Urine,Clean Catch Gram Neg Bacilli Diabetes panel 04/08/22 Range/Units 06:51 Sodium 131 L (137-145) mmol/L Potassium 5.2 H (3.5-5.1) mmol/L Chloride 97 L (98-107) mmol/L Carbon Dioxide 25 (22-30) mmol/L BUN 60 H (7-17) mg/dL Creatinine 3.09 H (0.52-1.04) mg/dL Glucose 90 (74-99) mg/dL Calcium 7.2 L (8.4-10.2) mg/dL Calcium panel 04/08/22 Range/Units 06:51 Calcium 7.2 L (8.4-10.2) mg/dL Pituitary panel 04/08/22 Range/Units 06:51 Sodium 131 L (137-145) mmol/L Potassium 5.2 H (3.5-5.1) mmol/L Chloride 97 L (98-107) mmol/L Carbon Dioxide 25 (22-30) mmol/L BUN 60 H (7-17) mg/dL Creatinine 3.09 H (0.52-1.04) mg/dL Glucose 90 (74-99) mg/dL Calcium 7.2 L (8.4-10.2) mg/dL Adrenal panel 04/08/22 Range/Units 06:51 Sodium 131 L (137-145) mmol/L Potassium 5.2 H (3.5-5.1) mmol/L Chloride 97 L (98-107) mmol/L Carbon Dioxide 25 (22-30) mmol/L BUN 60 H (7-17) mg/dL Creatinine 3.09 H (0.52-1.04) mg/dL Glucose 90 (74-99) mg/dL Calcium 7.2 L (8.4-10.2) mg/dL Assessment and Plan Assessment: Profound anemia. Patient should undergo upper and lower endoscopy. We will plan for Sunday to perform EGD and colonoscopy.
--- NOTE | 2022-04-08 11:54 | P.PN ---
Subjective Progress Note Date: 04/08/22 86-year-old female admitted back on March 31, to the emergency department, with complaints of shortness of breath. The patient has a history of COPD, CHF, aortic stenosis, and coronary artery disease. The patient was recently in the hospital, and seen by our group, for CHF. The patient apparently was ready for discharge, and an x-ray shows some infiltrate, and for that reason, we were consulted. The patient does complain of shortness of breath, and cough. Producing a small amount of phlegm. No fever or chills. No chest pain or chest discomfort. She was initially seen by Dr. Anderson in the emergency room, and admitted with a diagnosis of acute on chronic diastolic CHF, hypoxia, and COPD e xacerbation. We were not consulted when she first came into the hospital. Currently, the patient's on 3 L of oxygen. She is not receiving any IV fluids. She is a former smoker who quit in 1974. She was taking albuterol, and Trelegy, at home. White count 13, hemoglobin 8.3, hematocrit 27.7, and platelet count 410,000. Sodium 127, potassium 5.7, chlorides 92, CO2 23, anion gap 12, BUN 63, and creatinine 4.16. Her creatinine on admission was only 1.39. Chest x-ray on admission was consistent with CHF, with a right-sided pleural effusion. Chest x-ray on April 05, shows mild fluid overload, and a right-sided effusion. There could be an infiltrate at the lung base, particular on the right side. Also, the patient's pro-calcitonin level was elevated at 0.43. The patient is seen today 04/07/2022 in follow-up on the regular medical floor. She is currently resting comfortably in bed. Awake and alert in no acute distress. Maintaining O2 saturations in the 90s on 3 L/m per nasal cannula. White count 10.5. Hemoglobin 7.9. Platelets 409. Sodium 128. Potassium 5.9. BUN 64. Creatinine 4.49. Urinalysis with large WBCs. Continue on Symbicort, albuterol, diuretics. Anticoagulated with Eliquis. Antibiotics in the form of Omnicef. The patient is seen today 04/08/2022 in follow-up on the regular medical floor. She continues to rest comfortably in bed. Awake and alert in no acute distress. Maintaining O2 saturations in the 90s on 2 L/m per nasal cannula.. Normal sali ne at 80 MLS per hour. She is continued on Symbicort, albuterol. Remains on oral diuretics. Remains on oral antibiotics. Urine culture positive for gram- negative bacilli. She remains quite anemic. The plan is for upper and lower endoscopy per surgical services on 04/10/2022. She is received 1 unit of packed red blood cells this admission. Current hemoglobin 7.8. White count 6.9. Platelets 450. Sodium 131. Potassium 5.2. BUN 60. Creatinine 3.09. Eliquis on hold. Objective - Vital Signs Vital signs: Vital Signs Temp 98.4 F 04/08/22 08:00 Pulse 90 04/08/22 09:00 Resp 18 04/08/22 09:00 BP 111/68 04/08/22 08:00 Pulse Ox 99 04/08/22 08:49 FiO2 Intake & Output 04/07/22 04/08/22 04/08/22 18:59 06:59 18:59 Output Total 1885 1650 Balance -1885 -1650 Weight 119 kg Output: Urine 1885 1650 Uretheral ([place]yl[place]) 1060 Stool 0 Other: Voiding Method Indwelling Catheter Indwelling Catheter Indwelling Catheter # Bowel Movements 1 - Exam GENERAL EXAM: Alert, weak, pale 86-year-old female, on 3 L nasal cannula, comfortable in no apparent distress. HEAD: Normocephalic. EYES: Normal reaction of pupils, equal size. NOSE: Clear with pink turbinates. THROAT: No erythema or exudates. NECK: No masses, no JVD. CHEST: No chest wall deformity. LUNGS: Equal air entry with few crackles in the posterior bases. CVS: S1 and S2 normal with no audible murmur, regular rhythm. ABDOMEN: No hepatosplenomegaly, normal bowel sounds, no guarding or rigidity. SPINE: No scoliosis or deformity SKIN: No rashes CENTRAL NERVOUS SYSTEM: No focal deficits, tone is normal in all 4 extremities. EXTREMITIES: There is 1+ peripheral edema. No clubbing, no cyanosis. Peripheral pulses are intact. - Labs CBC & Chem 7: 04/08/22 06:51 04/08/22 06:51 Labs: Abnormal Lab Results - Last 24 Hours (Table) 04/08/22 04/08/22 Range/Units 06:51 06:51 RBC 3.09 L (3.80-5.40) m/uL Hgb 7.8 L (11.4-16.0) gm/dL Hct 26.5 L (34.0-46.0) % MCHC 29.3 L (31.0-37.0) g/dL RDW 16.4 H (11.5-15.5) % Lymphocytes # 0.9 L (1.0-4.8) k/uL Sodium 131 L (137-145) mmol/L Potassium 5.2 H (3.5-5.1) mmol/L Chloride 97 L (98-107) mmol/L BUN 60 H (7-17) mg/dL Creatinine 3.09 H (0.52-1.04) mg/dL Calcium 7.2 L (8.4-10.2) mg/dL Microbiology - Last 24 Hours (Table) 04/06/22 17:43 Urine Culture - Preliminary Urine,Clean Catch Gram Neg Bacilli Assessment and Plan Assessment: Acute hypoxic respiratory failure secondary to fluid overload/CHF, complicated by worsening renal failure. A limited infiltrate/pneumonia, right lung base, cannot be excluded. Currently on Omnicef Urinary tract infection secondary to gram-negative bacilli Acute on chronic anemia, status post 1 unit packed red blood cells this admission, current hemoglobin 7.8 here plan is for EGD/colonoscopy 04/10/2022 History of COPD, from previous history of tobacco use. History of chronic diastolic CHF. CAD with previous stent placement. History of moderate aortic stenosis. History of CVA/TIA. History of diabetes mellitus. Morbid obesity. Hyperlipidemia. Hypertension. Hypothyroidism. Multiple other medical problems and comorbidities. Plan: The patient was seen and evaluated Stable from the pulmonary standpoint Titrate down the FiO2 as tolerated Continue current treatment plan Plan is for EGD/colonoscopy 04/10/2022 I have personally seen and examined the patient, performed the documentation and the assessment and plan as written. Number of minutes spent on the visit: 10.
--- NOTE | 2022-04-08 12:52 | P.PN ---
Subjective (This is a 86-year-old female well-known to my practice with past medical history of COPD CHF monitor aortic stenosis coronary artery disease presented to the emergency department with shortness of breath. Patient was recently hospitalized states that she has worsening shortness of breath or past several days, the dyspnea became clearly worse at 3 AM she took 3 of her nebulizer treatments without any improvement she does not wear oxygen at home upon EMS arrival O2 sats were in the mid 80s with increased work of breathing. Placed on nonrebreather denies fever chills or cough has been taking Lasix daily without missing any doses and MrIgnacio worsening lower extremity edema patient was not on antibiotics or steroids no other alleviating or precipitating factors however patient does have chronic anemia as well.) 04/03/2022 Evaluated by cardiology. Bilateral lower extremity edema at baseline. Diuretics transitioned to oral as per cardiology. Renal function improving. Actively grieving, reports recent loss of grandson and daughter, as well as another family member recently diagnosed with cancer. Denies chest pain, palpitations or increased shortness of breath. Maintaining O2 sats in the 90s on 2 L nasal cannula. 04/05/2022 hypotensive during the night, systolic blood pressure dropped as low mid 70s required IV fluid bolus. Increased weakness, fatigued. This morning creatinine significantly worsened, BUN jumped to 57, creatinine increased to 3.49. Metformin and KAE inhibitor discontinued. Lasix held. Currently req uiring 3 L nasal cannula to maintain O2 sats in the low 90s. ABGs noted. Chest x-ray reporting bilateral infiltrate and small right effusion, correlate for CHF, otherwise consider pneumonia. 04/06/22 continued hypotension, last night, received additional IV fluids. Worsening renal function this morning, BUN 63, creatinine 4.16. Pro-calcitonin elevated 0.43, maintained on IV antibiotics of Rocephin. T-max 99.6, WBC 13. Stool for occult blood negative, Hemoglobin 8.3, platelets 410. Sodium 127, potassium 5.7. More alert today. Denies chest pain, palpitations. April 07, 2022: patient is reevaluated for her hypotension, Worsening acute on chronic renal failure and her recent CHF.Vitals remain stable. Her blood pressures improved and has remained improved for the past 36 hours. Laboratory studies currently share hemoglobin 79. Her BUN is now 64 current and 4.49, sodium is 128, potassium 5.9. Nephrology is following this. Pulmonology been following her as well Concepcion has her at bedside. She just feels fatigued and weak. She's developed a stage two pressure ulcer to her coccyx. 04/08/2022: Patient continues on her current medication regimen. She is on Omnicef 300 mg twice a day for pneumonia. She remains on Lasix 40 mg daily for her CHF. Metoprolol 12.5 twice a day for heart rate control, measuring 4 hypotension. Due to her ongoing anemia, her Elequis is been stopped. General surgery consult. Pulmonology indicates she remained stable. Concepcion denies any chest pains pressures except with activity.She is comfortable. No nausea vomiting. She is feels weak. This is improved today. for hypotension Objective - Vital Signs Vital signs: Vital Signs Temp 98.4 F 04/08/22 08:00 Pulse 83 04/08/22 12:17 Resp 18 04/08/22 09:00 BP 111/68 04/08/22 08:00 Pulse Ox 99 04/08/22 08:49 FiO2 Intake & Output 04/07/22 04/08/22 04/08/22 18:59 06:59 18:59 Output Total 1885 1650 Balance -1885 -1650 Weight 119 kg Output: Urine 1885 1650 Uretheral ([place]) 1060 Stool 0 Other: Voiding Method Indwelling Catheter Indwelling Catheter Indwelling Catheter # Bowel Movements 1 - Exam General: [Patient alert and oriented times 3.tired, NAD Neck: Supple, no JVD Cardiac: [Heart regularly irregular No S3. No S4. No clicks, rubs. 2/6 systolic aortic murmur Lungs: No rhonchi, fine scattered crackles throughout Abdomen: [Soft, No mass. No organomegaly. Bowel sounds presnt and normoactive in all 4 quadrants.] Extremes: Decreased edema bilateral lower extremities at baseline, no cyanosis no claudication normal pulses] Skin: [Warm and dry, No rash.] - Labs CBC & Chem 7: 04/08/22 06:51 04/08/22 06:51 Labs: Abnormal Lab Results - Last 24 Hours (Table) 04/08/22 04/08/22 Range/Units 06:51 06:51 RBC 3.09 L (3.80-5.40) m/uL Hgb 7.8 L (11.4-16.0) gm/dL Hct 26.5 L (34.0-46.0) % MCHC 29.3 L (31.0-37.0) g/dL RDW 16.4 H (11.5-15.5) % Lymphocytes # 0.9 L (1.0-4.8) k/uL Sodium 131 L (137-145) mmol/L Potassium 5.2 H (3.5-5.1) mmol/L Chloride 97 L (98-107) mmol/L BUN 60 H (7-17) mg/dL Creatinine 3.09 H (0.52-1.04) mg/dL Calcium 7.2 L (8.4-10.2) mg/dL Microbiology - Last 24 Hours (Table) 04/06/22 17:43 Urine Culture - Preliminary Urine,Clean Catch Gram Neg Bacilli Assessment and Plan (1) Acute on chronic diastolic (congestive) heart failure Current Visit: Yes Status: Acute Code(s): I50.33 - ACUTE ON CHRONIC DIASTOLIC (CONGESTIVE) HEART FAILURE SNOMED Code(s): 010085771 (2) Acute on chronic renal failure Current Visit: Yes Status: Acute Code(s): N17.9 - ACUTE KIDNEY FAILURE, UNSPECIFIED; N18.9 - CHRONIC KIDNEY DISEASE, UNSPECIFIED SNOMED Code(s): 901232694 (3) Anemia Current Visit: Yes Status: Acute Code(s): D64.9 - ANEMIA, UNSPECIFIED SNOMED Code(s): 247753372 (4) COPD exacerbation Current Visit: Yes Status: Acute Code(s): J44.1 - CHRONIC OBSTRUCTIVE PULMONARY DISEASE W (ACUTE) EXACERBATION SNOMED Code(s): 881369484 (5) Hypoxia Current Visit: Yes Status: Acute Code(s): R09.02 - HYPOXEMIA SNOMED Code(s): 530789859 (6) Acquired hypothyroidism Current Visit: No Status: Acute Code(s): E03.9 - HYPOTHYROIDISM, UNSPECIFIED SNOMED Code(s): 986691610 (7) Acute pulmonary edema Current Visit: No Status: Acute Code(s): J81.0 - ACUTE PULMONARY EDEMA SNOMED Code(s): 19658366 (8) Acute renal failure Current Visit: No Status: Acute Code(s): N17.9 - ACUTE KIDNEY FAILURE, UNSPECIFIED SNOMED Code(s): 03422652 (9) CAD (coronary atherosclerotic disease) Current Visit: No Status: Acute Code(s): I25.10 - ATHSCL HEART DISEASE OF [place] CORONARY ARTERY W/O ANG PCTRS SNOMED Code(s): 164958305 (10) Generalized weakness Current Visit: No Status: Acute Code(s): R53.1 - WEAKNESS SNOMED Code(s): 58063900 (11) Hyperkalemia Current Visit: No Status: Acute Code(s): E87.5 - HYPERKALEMIA SNOMED Code(s): 79379479 (12) Type 2 diabetes mellitus without complications Current Visit: No Status: Acute Code(s): E11.9 - TYPE 2 DIABETES MELLITUS WITHOUT COMPLICATIONS SNOMED Code(s): 963746528 (13) Urinary tract infection Current Visit: No Status: Acute Code(s): N39.0 - URINARY TRACT INFECTION, SITE NOT SPECIFIED SNOMED Code(s): 95021693 Plan: Will repeat labs in a.m., wait on for the recommendations from nephrology and pulmonology, surgery has seen the patient and EGD/colonoscopy on sunday planned. she will be reevaluated in the next 24 hours
--- NOTE | 2022-04-08 14:27 | P.PN ---
Subjective Progress Note Date: 04/08/22 Follow-up for acute kidney injury. Good urine output, 3.5 L in the last 24 hours. Objective - Vital Signs Vital signs: Vital Signs Temp 98.8 F 04/08/22 14:00 Pulse 133 H 04/08/22 14:00 Resp 16 04/08/22 14:00 BP 87/55 04/08/22 14:00 Pulse Ox 100 04/08/22 14:00 FiO2 Intake & Output 04/07/22 04/08/22 04/08/22 18:59 06:59 18:59 Output Total 1885 1650 Balance -1885 -1650 Weight 119 kg Output: Urine 1884 1650 Uretheral ([place]) 1060 Stool 0 Other: Voiding Method Indwelling Catheter Indwelling Catheter Indwelling Catheter # Bowel Movements 1 - Exam No acute distress S1-S2 heard Decreased breath sounds Abdomen soft, [place] edema - Labs CBC & Chem 7: 04/08/22 06:51 04/08/22 06:51 Labs: Abnormal Lab Results - Last 24 Hours (Table) 04/08/22 04/08/22 Range/Units 06:51 06:51 RBC 3.09 L (3.80-5.40) m/uL Hgb 7.8 L (11.4-16.0) gm/dL Hct 26.5 L (34.0-46.0) % MCHC 29.3 L (31.0-37.0) g/dL RDW 16.4 H (11.5-15.5) % Lymphocytes # 0.9 L (1.0-4.8) k/uL Sodium 131 L (137-145) mmol/L Potassium 5.2 H (3.5-5.1) mmol/L Chloride 97 L (98-107) mmol/L BUN 60 H (7-17) mg/dL Creatinine 3.09 H (0.52-1.04) mg/dL Calcium 7.2 L (8.4-10.2) mg/dL Microbiology - Last 24 Hours (Table) 04/06/22 17:43 Urine Culture - Preliminary Urine,Clean Catch Gram Neg Bacilli Assessment and Plan Assessment: #1 acute kidney injury currently nonoliguric secondary to hemodynamic ATN. #2 hypotension on midodrine #3 diastolic CHF #4 hyperkalemia better. #5 chronic kidney disease stage III A secondary to nephrosclerosis with a baseline creatinine of 1.2-1.4 MG per DL. Plan: #1 renal function improving. Continue with current dose of Lasix. #2 avoid hypotensive episodes. #3 no acute indication for renal replacement therapy at this time.
--- NOTE | 2022-04-08 15:38 | P.PN ---
Progress Note - Text Progress Note Date: 04/08/22 This is a very pleasant 86-year-old patient with a past medical history significant for heart failure with preserved ejection fraction, coronary artery disease with prior stenting, aortic stenosis, hypertension, dyslipidemia, diabetes, and chronic kidney disease as well as chronic anemia. The patient was admitted to the hospital with heart failure exacerbation. We signed off on the patient then requested to see the patient again because she went back into A. fib with RVR. The patient was seen this afternoon. The EKG documented A. fib with RVR and heart rate and 130 bpm. Unfortunately her pressure has been marginal. With that being sedated I am going to start the patient on amiodarone with a bolus and drip. She to be transferred to 3 S. Meanwhile will continue the current medical regimen and continue following up with the patient
[2022-04-08] MEDS ORDERED: DEXTROSE 5% IN WATER 100 ML with AMIODARONE 150 MG IV ONE (15:39)
[2022-04-08] MEDS ORDERED: AMIODARONE 360 MG in DEXTROSE 5% IN WATER 200 ML IV ONE ×2 (15:40)
[2022-04-08] MEDS: HYDROcodone/APAP 5-325MG 1 EACH TAB PO PRN (18:14)
[2022-04-08 19:58] LABS: Glucose,Whole Blood 145 mg/dL (70-110)
[2022-04-08] MEDS: ATORVASTATIN 40 MG TAB PO SCH (20:04)
[2022-04-08] MEDS: AMITRIPTYLINE HCL 50 MG TAB PO SCH (20:04)
[2022-04-09] MEDS ORDERED: AMIODARONE 450 MG in DEXTROSE 5% IN WATER 250 ML IV SCH ×2 (00:30)
[2022-04-09] MEDS: MIDODRINE 5 MG TAB PO SCH ×3 (06:57→17:04)
[2022-04-09] MEDS: LEVOTHYROXINE 50 MCG TAB PO SCH (06:57)
--- NOTE | 2022-04-09 07:02 | P.PN ---
Progress Note - Text Progress Note Date: 04/09/22 This is a very pleasant 86-year-old patient with a past medical history significant for heart failure with preserved ejection fraction, coronary artery disease with prior stenting, aortic stenosis, hypertension, dyslipidemia, diabetes, and chronic kidney disease as well as chronic anemia. The patient was admitted to the hospital with heart failure exacerbation. We signed off on the patient then requested to see the patient again because she went back into A. fib with RVR. Subsequently I transferred the patient to 3 S. and I started the patient on amiodarone IV. 04/09/2022 The patient was seen this morning. She converted to normal sinus mechanism. I'm going to stop amiodarone IV and start the patient on amiodarone by mouth. She remains asymptomatic at this point. She remains hemodynamically stable into the blood pressure. From the cardiac standpoint of view, we'll continue the current medical regimen and the patient can be transferred to 4 S. and will follow-up with the patient on when necessary case
[2022-04-09 07:05] LABS: Glucose,Whole Blood 115 mg/dL (70-110)
[2022-04-09] MEDS: AMIODARONE 200 MG TAB PO SCH ×2 (08:17→20:21)
[2022-04-09] MEDS: FUROSEMIDE 40 MG TAB PO SCH (08:17)
[2022-04-09] MEDS: CYANOCOBALAMIN 500 MCG TAB PO SCH (08:17)
[2022-04-09] MEDS: METOPROLOL TARTRATE 12.5 MG TAB PO SCH ×2 (08:17→20:21)
[2022-04-09] MEDS: CEFDINIR 300 MG CAP PO SCH (08:17)
[2022-04-09] MEDS: GABAPENTIN 100 MG CAP PO SCH ×3 (08:17→20:21)
[2022-04-09] MEDS: SYMBICORT 80-4.5 MCG INHALER INHALATION SCH ×2 (08:46→20:35)
[2022-04-09] MEDS: IPRATROPIUM 0.5 MG/2.5 ML NEBU INHALATION SCH ×4 (08:46→20:35)
[2022-04-09] MEDS ORDERED: PEG 3350 (236 GM/BTL) + LYTES 4,000 ML BOTTLE PO ONE (08:49)
[2022-04-09 11:05] LABS: Calcium 7.8 mg/dL (8.4-10.2); Potassium 5.1 mmol/L (3.5-5.1)
--- NOTE | 2022-04-09 11:13 | P.PN ---
Subjective Progress Note Date: 04/09/22 Follow-up for acute kidney injury. Good urine output, 3.5 L in the last 24 hours. Objective - Vital Signs Vital signs: Vital Signs Temp 98.6 F 04/09/22 08:15 Pulse 81 04/09/22 09:02 Resp 18 04/09/22 08:15 BP 134/55 04/09/22 08:15 Pulse Ox 95 04/09/22 08:46 FiO2 Intake & Output 04/08/22 04/09/22 04/09/22 18:59 06:59 18:59 Intake Total 118 120 347.78 Output Total 2500 1000 Balance -2382 -880 347.78 Intake: Intake, IV Titration 107.78 Amount Amiodarone 450 mg In 107.78 Dextrose 5% in Water 250 ml @ 0.5 MG/MIN 16.667 mls/hr IV .Q[facility]H [facility] Rx#: [id number] Oral 118 120 240 Output: Urine 2500 1000 Other: Voiding Method Indwelling Catheter Indwelling Catheter Indwelling Catheter - Exam No acute distress S1-S2 heard Decreased breath sounds Abdomen soft, [place] edema - Labs CBC & Chem 7: 04/08/22 06:51 04/08/22 06:51 Labs: Abnormal Lab Results - Last 24 Hours (Table) 04/08/22 04/09/22 Range/Units 19:57 06:54 POC Glucose (mg/dL) 145 H 115 H (70-110) mg/dL Microbiology - Last 24 Hours (Table) 04/06/22 17:43 Urine Culture - Final Urine,Clean Catch Klebsiella oxytoca Assessment and Plan Assessment: #1 acute kidney injury currently nonoliguric secondary to hemodynamic ATN. #2 hypotension on midodrine #3 diastolic CHF #4 hyperkalemia better. #5 chronic kidney disease stage III A secondary to nephrosclerosis with a baseline creatinine of 1.2-1.4 MG per DL. Plan: #1 renal function improving. Continue with current dose of Lasix. No new labs today. #2 avoid hypotensive episodes. #3 no acute indication for renal replacement therapy at this time.
[2022-04-09 11:44] LABS: Glucose,Whole Blood 214 mg/dL (70-110)
--- NOTE | 2022-04-09 12:15 | P.PN ---
Subjective (This is a 86-year-old female well-known to my practice with past medical history of COPD CHF monitor aortic stenosis coronary artery disease presented to the emergency department with shortness of breath. Patient was recently hospitalized states that she has worsening shortness of breath or past several days, the dyspnea became clearly worse at 3 AM she took 3 of her nebulizer treatments without any improvement she does not wear oxygen at home upon EMS arrival O2 sats were in the mid 80s with increased work of breathing. Placed on nonrebreather denies fever chills or cough has been taking Lasix daily without missing any doses and MrIgnacio worsening lower extremity edema patient was not on antibiotics or steroids no other alleviating or precipitating factors however patient does have chronic anemia as well.) 04/03/2022 Evaluated by cardiology. Bilateral lower extremity edema at baseline. Diuretics transitioned to oral as per cardiology. Renal function improving. Actively grieving, reports recent loss of grandson and daughter, as well as another family member recently diagnosed with cancer. Denies chest pain, palpitations or increased shortness of breath. Maintaining O2 sats in the 90s on 2 L nasal cannula. 04/05/2022 hypotensive during the night, systolic blood pressure dropped as low mid 70s required IV fluid bolus. Increased weakness, fatigued. This morning creatinine significantly worsened, BUN jumped to 57, creatinine increased to 3.49. Metformin and KAE inhibitor discontinued. Lasix held. Currently req uiring 3 L nasal cannula to maintain O2 sats in the low 90s. ABGs noted. Chest x-ray reporting bilateral infiltrate and small right effusion, correlate for CHF, otherwise consider pneumonia. 04/06/22 continued hypotension, last night, received additional IV fluids. Worsening renal function this morning, BUN 63, creatinine 4.16. Pro-calcitonin elevated 0.43, maintained on IV antibiotics of Rocephin. T-max 99.6, WBC 13. Stool for occult blood negative, Hemoglobin 8.3, platelets 410. Sodium 127, potassium 5.7. More alert today. Denies chest pain, palpitations. April 07, 2022: patient is reevaluated for her hypotension, Worsening acute on chronic renal failure and her recent CHF.Vitals remain stable. Her blood pressures improved and has remained improved for the past 36 hours. Laboratory studies currently share hemoglobin 79. Her BUN is now 64 current and 4.49, sodium is 128, potassium 5.9. Nephrology is following this. Pulmonology been following her as well Concepcion has her at bedside. She just feels fatigued and weak. She's developed a stage two pressure ulcer to her coccyx. 04/08/2022: Patient continues on her current medication regimen. She is on Omnicef 300 mg twice a day for pneumonia. She remains on Lasix 40 mg daily for her CHF. Metoprolol 12.5 twice a day for heart rate control, measuring 4 hypotension. Due to her ongoing anemia, her Elequis is been stopped. General surgery consult. Pulmonology indicates she remained stable. Concepcion denies any chest pains pressures except with activity.She is comfortable. No nausea vomiting. She is feels weak. This is improved today. for hypotension April 09, 2022: patient was found in her bed resting comfortably. She remains on Lasix 40 mg oral daily, Omnicef 300 mg BID for infection. Symbicort, along with her other home medications. Middle drain for blood pressure control metoprolol for heart rate control. Last night she had an episode of a fib with RVR. Cardiology placed her on a amiodarone drip. She has since converted to sinus rhythm. They have transitioned her to oral amiodarone. She feels OK. Due to her ongoing anemia and EGD and colonoscopy our plan for tomorrow.This morning she denies any chest pain, pressures, shortness of breath, nausea or vomiting. Objective - Vital Signs Vital signs: Vital Signs Temp 98.9 F 04/09/22 11:40 Pulse 80 04/09/22 11:58 Resp 16 04/09/22 11:40 BP 128/58 04/09/22 11:40 Pulse Ox 100 04/09/22 11:40 FiO2 Intake & Output 04/08/22 04/09/22 04/09/22 18:59 06:59 18:59 Intake Total 118 120 347.78 Output Total 2500 1000 Balance -2382 -880 347.78 Intake: Intake, IV Titration 107.78 Amount Amiodarone 450 mg In 107.78 Dextrose 5% in Water 250 ml @ 0.5 MG/MIN 16.667 mls/hr IV .Q15H [facility] Rx#: [id number] Oral 118 120 240 Output: Urine 2500 1000 Other: Voiding Method Indwelling Catheter Indwelling Catheter Indwelling Catheter - Exam General: [Patient alert and oriented times 3.tired, NAD Neck: Supple, no JVD Cardiac: [Heart regularly irregular No S3. No S4. No clicks, rubs. 2/6 systolic aortic murmur Lungs: No rhonchi, fine scattered crackles throughout Abdomen: [Soft, No mass. No organomegaly. Bowel sounds presnt and normoactive in all 4 quadrants.] Extremes: Decreased edema bilateral lower extremities at baseline, no cyanosis no claudication normal pulses] Skin: [Warm and dry, No rash.] - Labs CBC & Chem 7: 04/08/22 06:51 04/09/22 10:28 Labs: Abnormal Lab Results - Last 24 Hours (Table) 04/08/22 04/09/22 04/09/22 Range/Units 19:57 06:54 10:28 Sodium 132 L (137-145) mmol/L BUN 41 H (7-17) mg/dL Creatinine 1.50 H (0.52-1.04) mg/dL Glucose 166 H (74-99) mg/dL POC Glucose (mg/dL) 145 H 115 H (70-110) mg/dL Calcium 7.8 L (8.4-10.2) mg/dL 04/09/22 Range/Units 11:42 Sodium (137-145) mmol/L BUN (7-17) mg/dL Creatinine (0.52-1.04) mg/dL Glucose (74-99) mg/dL POC Glucose (mg/dL) 214 H (70-110) mg/dL Calcium (8.4-10.2) mg/dL Microbiology - Last 24 Hours (Table) 04/06/22 17:43 Urine Culture - Final Urine,Clean Catch Klebsiella oxytoca Assessment and Plan (1) Acute on chronic diastolic (congestive) heart failure Current Visit: Yes Status: Acute Code(s): I50.33 - ACUTE ON CHRONIC DIASTOLIC (CONGESTIVE) HEART FAILURE SNOMED Code(s): 669357495 (2) Acute on chronic renal failure Current Visit: Yes Status: Acute Code(s): N17.9 - ACUTE KIDNEY FAILURE, UNSPECIFIED; N18.9 - CHRONIC KIDNEY DISEASE, UNSPECIFIED SNOMED Code(s): 530902079 (3) Anemia Current Visit: Yes Status: Acute Code(s): D64.9 - ANEMIA, UNSPECIFIED SNOMED Code(s): 694660694 (4) COPD exacerbation Current Visit: Yes Status: Acute Code(s): J44.1 - CHRONIC OBSTRUCTIVE PU LMONARY DISEASE W (ACUTE) EXACERBATION SNOMED Code(s): 375041462 (5) Hypoxia Current Visit: Yes Status: Acute Code(s): R09.02 - HYPOXEMIA SNOMED Code(s): 300436787 (6) Acquired hypothyroidism Current Visit: No Status: Acute Code(s): E03.9 - HYPOTHYROIDISM, UNSPECIFIED SNOMED Code(s): 357264213 (7) Acute pulmonary edema Current Visit: No Status: Acute Code(s): J81.0 - ACUTE PULMONARY EDEMA SNOMED Code(s): 94615701 (8) Acute renal failure Current Visit: No Status: Acute Code(s): N17.9 - ACUTE KIDNEY FAILURE, UNSPECIFIED SNOMED Code(s): 26933304 (9) CAD (coronary atherosclerotic disease) Current Visit: No Status: Acute Code(s): I25.10 - ATHSCL HEART DISEASE OF [place] CORONARY ARTERY W/O ANG PCTRS SNOMED Code(s): 680116207 (10) Generalized weakness Current Visit: No Status: Acute Code(s): R53.1 - WEAKNESS SNOMED Code(s): 59587309 (11) Hyperkalemia Current Visit: No Status: Acute Code(s): E87.5 - HYPERKALEMIA SNOMED Code(s): 60804844 (12) Type 2 diabetes mellitus without complications Current Visit: No Status: Acute Code(s): E11.9 - TYPE 2 DIABETES MELLITUS WITHOUT COMPLICATIONS SNOMED Code(s): 544905265 (13) Urinary tract infection Current Visit: No Status: Acute Code(s): N39.0 - URINARY TRACT INFECTION, SITE NOT SPECIFIED SNOMED Code(s): 38165631 Plan: Will repeat labs in a.m., wait on for the recommendations from consultants EGD/colonoscopy planned for tomorrow . she will be reevaluated in the next 24 hours
--- NOTE | 2022-04-09 12:43 | P.PN ---
Progress Note - Text Progress Note Date: 04/09/22 Patient remains stable. Her hemoglobin 7.8. She denies any abdominal pain. Patient will undergo EGD and colonoscopy in the a.m.
--- NOTE | 2022-04-09 13:00 | P.PN ---
Subjective Progress Note Date: 04/09/22 Principal diagnosis: Abnormal chest x-ray/pneumonia. 86-year-old female admitted back on March 31, to the emergency department, with complaints of shortness of breath. The patient has a history of COPD, CHF, aortic stenosis, and coronary artery disease. The patient was recently in the hospital, and seen by our group, for CHF. The patient apparently was ready for discharge, and an x-ray shows some infiltrate, and for that reason, we were consulted. The patient does complain of shortness of breath, and cough. Producing a small amount of phlegm. No fever or chills. No chest pain or chest discomfort. She was initially seen by Dr. Anderson in the emergency room, and admitted with a diagnosis of acute on chronic diastolic CHF, hypoxia, and COPD exacerbation. We were not consulted when she first came into the hospital. Currently, the patient's on 3 L of oxygen. She is not receiving any IV fluids. She is a former smoker who quit in 1974. She was taking albuterol, and Trelegy, at home. White count 13, hemoglobin 8.3, hematocrit 27.7, and platelet count 410,000. Sodium 127, potassium 5.7, chlorides 92, CO2 23, anion gap 12, BUN 63, and creatinine 4.16. Her creatinine on admission was only 1.39. Chest x-ray on admission was consistent with CHF, with a right-sided pleural effusion. Chest x-ray on April 05, shows mild fluid overload, and a right-sided effusion. There could be an infiltrate at the lung base, particular on the right side. Also, the patient's pro-calcitonin level was elevated at 0.43. The patient is seen today 04/07/2022 in follow-up on the regular medical floor. She is currently resting comfortably in bed. Awake and alert in no acute distress. Maintaining O2 saturations in the 90s on 3 L/m per nasal cannula. White count 10.5. Hemoglobin 7.9. Platelets 409. Sodium 128. Potassium 5.9. BUN 64. Creatinine 4.49. Urinalysis with large WBCs. Continue on Symbicort, albuterol, diuretics. Anticoagulated with Eliquis. Antibiotics in the form of Omnicef. The patient is seen today 04/08/2022 in follow-up on the regular medical floor. She continues to rest comfortably in bed. Awake and alert in no acute distress. Maintaining O2 saturations in the 90s on 2 L/m per nasal cannula.. Normal saline at 80 MLS per hour. She is continued on Symbicort, albuterol. Remains on oral diuretics. Remains on oral antibiotics. Urine culture positive for gram-negative bacilli. She remains quite anemic. The plan is for upper and lower endoscopy per surgical services on 04/10/2022. She is received 1 unit of packed red blood cells this admission. Current hemoglobin 7.8. White count 6.9. Platelets 450. Sodium 131. Potassium 5.2. BUN 60. Creatinine 3.09. Eliquis on hold. Progress note dated 04/09/2022. The patient is again seen on the general medical floor, room 374. She appears to be comfortable. She is on 2 L of oxygen. She's getting saline at 80 mL an hour. She's awake and alert. She really doesn't have much in the way of complaints today, and specifically denies any shortness of breath, chest congestion, cough, or phlegm production. Labs today include a sodium 132, potassium 5.1, chlorides 102, CO2 23, a BUN of 41, and creatinine 1.50. With hydration, her kidney function has dramatically improved. Urine sampling was positive for Klebsiella oxytoca. Patient is currently on Omnicef, 300 mg twice a day. She is also getting breathing treatments, and Symbicort. Objective - Vital Signs Vital signs: Vital Signs Temp 98.9 F 04/09/22 11:40 Pulse 80 04/09/22 11:58 Resp 16 04/09/22 11:40 BP 128/58 04/09/22 11:40 Pulse Ox 100 04/09/22 11:40 FiO2 Intake & Output 04/08/22 04/09/22 04/09/22 18:59 06:59 18:59 Intake Total 118 120 347.78 Output Total 2500 1000 Balance -1412 -800 347.78 Intake: Intake, IV Titration 107.78 Amount Amiodarone 450 mg In 107.78 Dextrose 5% in Water 250 ml @ 0.5 MG/MIN 16.667 mls/hr IV .Q15H REPLACED BY [facility] Rx#: [id number] Oral 118 120 240 Output: Urine 2500 1000 Other: Voiding Method Indwelling Catheter Indwelling Catheter Indwelling Catheter - Exam No acute distress, oriented 3. No respiratory distress. The patient is on 2 L of oxygen. HEENT examination is grossly unremarkable. Neck supple. Full range of motion. No adenopathy thyromegaly or neck vein distention. Cardiovascular examination reveals regular rhythm rate. S1-S2 normal. No S3 or S4. No discernible murmur noted. Heart rate is 79 bpm. Heart sounds are distant. Lungs reveal mostly clear breath sounds. Minimal crackles at the bases. No whe ezes. No rhonchi. Saturations are 100% on 2 L. Abdomen obese, with bowel sounds. No masses or tenderness. Extremities are intact. Minimal edema. No cyanosis or clubbing. Skin is without rash or lesion. Neurologic examination is brief but nonfocal. - Labs CBC & Chem 7: 04/08/22 06:51 04/09/22 10:28 Labs: Abnormal Lab Results - Last 24 Hours (Table) 04/08/22 04/09/22 04/09/22 Range/Units 19:57 06:54 10:28 Sodium 132 L (137-145) mmol/L BUN 41 H (7-17) mg/dL Creatinine 1.50 H (0.52-1.04) mg/dL Glucose 166 H (74-99) mg/dL POC Glucose (mg/dL) 145 H 115 H (70-110) mg/dL Calcium 7.8 L (8.4-10.2) mg/dL 04/09/22 Range/Units 11:42 Sodium (137-145) mmol/L BUN (7-17) mg/dL Creatinine (0.52-1.04) mg/dL Glucose (74-99) mg/dL POC Glucose (mg/dL) 214 H (70-110) mg/dL Calcium (8.4-10.2) mg/dL Microbiology - Last 24 Hours (Table) 04/06/22 17:43 Urine Culture - Final Urine,Clean Catch Klebsiella oxytoca Assessment and Plan Assessment: Shortness of breath, most likely secondary to fluid overload/CHF, complicated by worsening renal failure. A limited infiltrate/pneumonia, right lung base, cannot be excluded. History of COPD, from previous history of tobacco use. History of chronic diastolic CHF. CAD with previous stent placement. History of moderate aortic stenosis. History of CVA/TIA. History of diabetes mellitus. Morbid obesity. Hyperlipidemia. Hypertension. Hypothyroidism. Multiple other medical problems and comorbidities. Plan: Plan dated 04/06/2022. The patient has been seen by nephrology for her worsening renal function. Her initial creatinine was 1.39. It's up above for now. Her chest x-rays reviewed. Is most consistent with fluid overload, and a right-sided pleural effusion. There may be an infiltrate at the right lung base. Her pro-calcitonin level is modestly elevated. I believe the patient would likely do well with an oral antibiotic. I'm recommending Omnicef, 300 mg twice a day. No additional recommendations are made. We will continue to follow. The patient's on appropriate bronchodilators. No steroids are needed at this time. Progress note dated 04/09/2022. The patient's kidney function is improving with gentle hydration. Her respiratory status is stable. The patient's on 2 L of oxygen with saturations of 100%. He has no complaints today, and denies any shortness of breath, cough, chest congestion, or phlegm production she continues on Omnicef. Klebsiella oxytoca was found in the urine. We will continue to follow make recommendations along the way. Prognosis is guarded. Time with Patient: Less than 30
[2022-04-09 15:28] LABS: Anisocytosis Slight; Basophils # (A) 0.1 k/uL (0-0.2); Basophils % (A) 1 %; Eosinophils # (A) 0.4 k/uL (0-0.7); Eosinophils % (A) 5 %; HCT 27.6 % (34.0-46.0); HGB 8.7 gm/dL (11.4-16.0); Hypochromasia Marked; Lymphocytes # (A) 1.7 k/uL (1.0-4.8); Lymphocytes % (A) 23 %; MCH 26.1 pg (25.0-35.0); MCHC 31.6 g/dL (31.0-37.0); MCV 82.7 fL (80.0-100.0); Mean Platelet Volume 8.8; Monocytes # (A) 0.9 k/uL (0-1.0); Monocytes % (A) 12 %; Neutrophils # (A) 4.4 k/uL (1.3-7.7); Neutrophils % (A) 57 %; Platelet Count 543 k/uL (150-450); RBC 3.34 m/uL (3.80-5.40); RDW 16.5 % (11.5-15.5); WBC 7.7 k/uL (3.8-10.6)
[2022-04-09 16:53] LABS: Glucose,Whole Blood 148 mg/dL (70-110)
[2022-04-09 20:12] LABS: Glucose,Whole Blood 107 mg/dL (70-110)
[2022-04-09] MEDS: AMITRIPTYLINE HCL 50 MG TAB PO SCH (20:21)
[2022-04-09] MEDS: ATORVASTATIN 40 MG TAB PO SCH (20:21)
[2022-04-09] MEDS: HYDROcodone/APAP 5-325MG 1 EACH TAB PO PRN (20:23)
[2022-04-10] MEDS: SODIUM CHLORIDE 0.9% 1,000 ML IV SCH ×3 (01:42→09:53)
[2022-04-10 05:49] LABS: Glucose,Whole Blood 120 mg/dL (70-110)
[2022-04-10] MEDS: LEVOTHYROXINE 50 MCG TAB PO SCH (06:39)
[2022-04-10] MEDS: MIDODRINE 5 MG TAB PO SCH ×3 (06:39→16:55)
[2022-04-10] MEDS ORDERED: MAGNESIUM CITRATE 296 ML BOTTLE PO ONE (06:55)
[2022-04-10] MEDS: IPRATROPIUM 0.5 MG/2.5 ML NEBU INHALATION SCH ×4 (08:23→19:43)
[2022-04-10] MEDS: SYMBICORT 80-4.5 MCG INHALER INHALATION SCH ×2 (08:24→19:43)
[2022-04-10 09:11] LABS: Anisocytosis Slight; HCT 28.9 % (34.0-46.0); HGB 8.7 gm/dL (11.4-16.0); Hypochromasia Marked; MCH 25.2 pg (25.0-35.0); MCHC 30.1 g/dL (31.0-37.0); Platelet Count 564 k/uL (150-450); RBC 3.45 m/uL (3.80-5.40); RDW 16.8 % (11.5-15.5); WBC 6.1 k/uL (3.8-10.6)
[2022-04-10 09:23] LABS: African American GFR (CKD) 56 (>60 ml/min/1.73 sqM); Anion Gap 9 mmol/L; Blood Urea Nitrogen 24 mg/dL (7-17); Calcium 8.1 mg/dL (8.4-10.2); Carbon Dioxide 29 mmol/L (22-30); Chloride 100 mmol/L (98-107); Glucose 116 mg/dL (74-99); Magnesium 1.9 mg/dL (1.6-2.3); Non-African American GFR(CKD) 48 (>60 ml/min/1.73 sqM); Potassium 4.5 mmol/L (3.5-5.1); Sodium 138 mmol/L (137-145)
[2022-04-10] MEDS: AMIODARONE 200 MG TAB PO SCH ×2 (09:53→20:27)
[2022-04-10] MEDS: FUROSEMIDE 40 MG TAB PO SCH (09:53)
[2022-04-10] MEDS: GABAPENTIN 100 MG CAP PO SCH ×3 (09:53→20:28)
[2022-04-10] MEDS: CEFDINIR 300 MG CAP PO SCH ×2 (09:53→20:27)
[2022-04-10] MEDS: CYANOCOBALAMIN 500 MCG TAB PO SCH (09:53)
[2022-04-10] MEDS: METOPROLOL TARTRATE 12.5 MG TAB PO SCH ×2 (09:53→18:28)
--- NOTE | 2022-04-10 11:16 | P.PN ---
Subjective Patient is seen in follow-up for acute kidney injury on chronic kidney disease. Renal function continues to improve. Good urine output. No vomiting or diarrhea. Scheduled for EGD and colonoscopy today. Vital signs are stable. General: Awake. No acute distress. HEENT: Head exam is unremarkable. LUNGS: Breath sounds decreased. HEART: Rate and Rhythm are regular. ABDOMEN: Soft, no distention. EXTREMITITES: No edema. Objective - Vital Signs Vital signs: Vital Signs Temp 98.1 F 04/09/22 20:00 Pulse 88 04/10/22 08:37 Resp 16 04/10/22 04:00 BP 124/62 04/10/22 04:00 Pulse Ox 94 L 04/10/22 04:00 FiO2 Intake & Output 04/09/22 04/10/22 04/10/22 18:59 06:59 18:59 Intake Total 2627.78 0 Output Total 2400 2275 Balance 227.78 -2275 0 Intake: Intake, IV Titration 107.78 Amount Amiodarone 450 mg In 107.78 Dextrose 5% in Water 250 ml @ 0.5 MG/MIN 16.667 mls/hr IV .Q15H [facility] Rx#: [id number] Oral 2520 0 Output: Urine 2400 2275 Other: Voiding Method Indwelling Catheter Indwelling Catheter # Voids 2 4 - Labs CBC & Chem 7: 04/10/22 08:31 04/10/22 08:31 Labs: Abnormal Lab Results - Last 24 Hours (Table) 04/09/22 04/09/22 04/09/22 Range/Units 10:28 11:42 14:37 RBC 3.34 L (3.80-5.40) m/uL Hgb 8.7 L (11.4-16.0) gm/dL Hct 27.6 L (34.0-46.0) % MCHC (31.0-37.0) g/dL RDW 16.5 H (11.5-15.5) % Plt Count 543 H (150-450) k/uL Sodium 132 L (137-145) mmol/L BUN 41 H (7-17) mg/dL Creatinine 1.50 H (0.52-1.04) mg/dL Glucose 166 H (74-99) mg/dL POC Glucose (mg/dL) 214 H (70-110) mg/dL Calcium 7.8 L (8.4-10.2) mg/dL 04/09/22 04/10/22 04/10/22 Range/Units 16:49 05:48 08:31 RBC 3.45 L (3.80-5.40) m/uL Hgb 8.7 L (11.4-16.0) gm/dL Hct 28.9 L (34.0-46.0) % MCHC 30.1 L (31.0-37.0) g/dL RDW 16.8 H (11.5-15.5) % Plt Count 564 H (150-450) k/uL Sodium (137-145) mmol/L BUN (7-17) mg/dL Creatinine (0.52-1.04) mg/dL Glucose (74-99) mg/dL POC Glucose (mg/dL) 148 H 120 H (70-110) mg/dL Calcium (8.4-10.2) mg/dL 04/10/22 Range/Units 08:31 RBC (3.80-5.40) m/uL Hgb (11.4-16.0) gm/dL Hct (34.0-46.0) % MCHC (31.0-37.0) g/dL RDW (11.5-15.5) % Plt Count (150-450) k/uL Sodium (137-145) mmol/L BUN 24 H (7-17) mg/dL Creatinine 1.06 H (0.52-1.04) mg/dL Glucose 116 H (74-99) mg/dL POC Glucose (mg/dL) (70-110) mg/dL Calcium 8.1 L (8.4-10.2) mg/dL Assessment and Plan Plan: Assessment: 1. Acute kidney injury secondary to hemodynamic ATN. Renal function improving. Creatinine 1.06 today. No hydronephrosis noted on kidney ultrasound. 2. Chronic kidney disease stage IIIa secondary to nephrosclerosis with baseline creatinine near 1.2. 3. A. fib with RVR on oral amiodarone and Lopressor. Cardiology following. 4. Chronic diastolic CHF. 5. Anemia of chronic kidney disease. Rule out iron deficiency. Concern for GI bleed. Surgery following. 6. Klebsiella UTI on antibiotics. 7. Hyponatremia. Hypervolemic. Improved with diuresis. Plan: Maintain oral Lasix. EGD and colonoscopy today. Check iron studies. Avoid nephrotoxins. Continue to monitor renal function and urine output
[2022-04-10 11:20] LABS: Eosinophils # (M) 0.06 k/uL (0-0.7); Lymphocytes # (M) 1.34 k/uL (1.0-4.8); Monocytes # (M) 0.67 k/uL (0-1.0); Neutrophils # (M) 4.03 k/uL (1.3-7.7); Neutrophils % (M) 66 %; Nucleated Red Blood Cells 0 /100 WBC (0-0); Total Cells Counted 100
[2022-04-10 11:21] LABS: Rouleaux Present
--- NOTE | 2022-04-10 12:10 | P.PN ---
Subjective Progress Note Date: 04/10/22 On 04/10/2022, the patient is resting comfortably in bed on room air oxygen. She has COPD, valvular heart disease with moderate aortic stenosis and a component of CHF and coronary artery disease. The patient is also morbidly obese. The patient came in with a low hemoglobin and the patient was given blo od transfusion and the patient is going to undergo an EGD and colonoscopy today. The patient has no altered mentation. She is quite weak and I understood from the family that her baseline performance of function that school so poor. The patient otherwise has no complaint. Denies having any chest pain. Blood work from today shows a white count of 6.4 with hemoglobin of 8.7 and a platelet count of 564. The BUN is at 24 with a creatinine of 1.06 and a sodium levels of 138. Objective - Vital Signs Vital signs: Vital Signs Temp 98.1 F 04/09/22 20:00 Pulse 88 04/10/22 08:37 Resp 16 04/10/22 04:00 BP 124/62 04/10/22 04:00 Pulse Ox 94 L 04/10/22 04:00 FiO2 Intake & Output 04/09/22 04/10/22 04/10/22 18:59 06:59 18:59 Intake Total 2627.78 0 Output Total 2400 2275 Balance 227.78 -2275 0 Intake: Intake, IV Titration 107.78 Amount Amiodarone 450 mg In 107.78 Dextrose 5% in Water 250 ml @ 0.5 MG/MIN 16.667 mls/hr IV .Q15H [facility] Rx#: [id number] Oral 2520 0 Output: Urine 2400 2275 Other: Voiding Method Indwelling Catheter Indwelling Catheter # Voids 2 4 - Exam No acute distress, oriented 3. No respiratory distress. The patient is on 2 L of oxygen. HEENT examination is grossly unremarkable. Neck supple. Full range of motion. No adenopathy thyromegaly or neck vein distention. Cardiovascular examination reveals regular rhythm rate. S1-S2 normal. No S3 or S4. CAMRYN 3/6 murmur noted. Heart sounds are distant. Lungs reveal mostly clear breath sounds. Minimal crackles at the bases. No wheezes. No rhonchi. Abdomen obese, with bowel sounds. No masses or tenderness. Extremities are intact. Minimal edema. No cyanosis or clubbing. Skin is without rash or lesion. Neurologic examination is brief but nonfocal. - Labs CBC & Chem 7: 04/10/22 08:31 04/10/22 08:31 Labs: Abnormal Lab Results - Last 24 Hours (Table) 04/09/22 04/09/22 04/10/22 Range/Units 14:37 16:49 05:48 RBC 3.34 L (3.80-5.40) m/uL Hgb 8.7 L (11.4-16.0) gm/dL Hct 27.6 L (34.0-46.0) % MCHC (31.0-37.0) g/dL RDW 16.5 H (11.5-15.5) % Plt Count 543 H (150-450) k/uL BUN (7-17) mg/dL Creatinine (0.52-1.04) mg/dL Glucose (74-99) mg/dL POC Glucose (mg/dL) 148 H 120 H (70-110) mg/dL Calcium (8.4-10.2) mg/dL 04/10/22 04/10/22 Range/Units 08:31 08:31 RBC 3.45 L (3.80-5.40) m/uL Hgb 8.7 L (11.4-16.0) gm/dL Hct 28.9 L (34.0-46.0) % MCHC 30.1 L (31.0-37.0) g/dL RDW 16.8 H (11.5-15.5) % Plt Count 564 H (150-450) k/uL BUN 24 H (7-17) mg/dL Creatinine 1.06 H (0.52-1.04) mg/dL Glucose 116 H (74-99) mg/dL POC Glucose (mg/dL) (70-110) mg/dL Calcium 8.1 L (8.4-10.2) mg/dL Assessment and Plan Plan: acute hypoxic respiratory failure, recovered and the patient is currently on room air oxygen Valvular heart disease with aortic valve stenosis and a preserved LV function Small right-sided pleural effusion acute on chronic anemia Shortness of breath, most likely secondary to fluid overload/CHF, complicated by worsening renal failure. A limited infiltrate/pneumonia, right lung base, cannot be excluded. History of COPD, from previous history of tobacco use. History of chronic diastolic CHF. CAD with previous stent placement. History of moderate aortic stenosis. History of CVA/TIA. History of diabetes mellitus. Morbid obesity. Hyperlipidemia. Hypertension. Hypothyroidism. Multiple other medical problems and comorbidities. Plan: 10 is going to undergo EGD and colonoscopy today. The patient is currently on room air oxygen. Should be able to tolerate the procedure without any complications. Continue oral Lasix Continue oral amiodarone and the patient's cardiac rhythm is currently in sinus sinus with occasional PACs Continue beta blockers Continue Symbicort as maintenance for her COPD Continue Lipitor Poor Functional status Look into go home after this current admission
[2022-04-10 12:32] LABS: Glucose,Whole Blood 110 mg/dL (70-110)
[2022-04-10] MEDS ORDERED: PROPOFOL 10 MG/ML 20 ML VIAL IV ONE (13:13)
[2022-04-10] MEDS ORDERED: LIDOCAINE 2% INJ 20 MG/ML (2 ML VIAL) ONE (13:13)
[2022-04-10] MEDS ORDERED: IV FLUID CONTINUATION 1,000 ML IV ONE ×2 (13:16)
--- NOTE | 2022-04-10 13:30 | P.OP ---
Date of Procedure: 04/10/22 Preoperative Diagnosis: Anemia Postoperative Diagnosis: Antral gastritis Procedure(s) Performed: EGD Colonoscopy Anesthesia: MAC Surgeon: Vinny Head Pathology: other (Antrum) Condition: stable Disposition: PACU Description of Procedure: The patient's placed on the endoscopy table in the lateral position. She received IV sedation. The gastroscope placed oropharynx passed in the esophagus and stomach. Scope was placed through the pylorus. The first and second portion of duodenum appeared normal. Scope was then brought back the antrum there is some minimal gastritis. The scope was unretroflexed and remainder of the stomach appeared normal. The GE junction was at 40 cms. The distal esophagus appeared normal. The proximal esophagus appeared normal. Scope withdrawn for patient.
[2022-04-10 17:06] LABS: Glucose,Whole Blood 141 mg/dL (70-110)
[2022-04-10 18:01] LABS: % Iron Saturation 9.63 (12.00-45.00); Iron 28 ug/dL (50-170); Total Iron Binding Capacity 294 ug/dL (228-460); Vitamin B12 >2000.0 pg/mL (200.0-944.0)
--- NOTE | 2022-04-10 18:01 | P.PN ---
Subjective Progress Note Date: 04/10/22 Principal diagnosis: Dyspnea known heart failure chronic anemia Patient is admitted with acute hypoxic exacerbation of chronic diastolic heart failure, chronic anemia, known COPD valvular heart disease moderate uric stenosis component of [facility] coronary patient is morbidly obese presented with low hemoglobin was transfused 1 unit underwent EGD demonstrating mild gastritis colonoscopy was not performed due to poor prep Objective - Vital Signs Vital signs: Vital Signs Temp 99.4 F 04/10/22 16:31 Pulse 88 04/10/22 16:37 Resp 16 04/10/22 16:31 BP 140/60 04/10/22 16:31 Pulse Ox 93 L 04/10/22 16:31 FiO2 Intake & Output 04/09/22 04/10/22 04/10/22 18:59 06:59 18:59 Intake Total 2627.78 100 Output Total 2400 2275 1425 Balance 227.78 -2275 -1325 Weight 119 kg Intake: IV 100 Intake, IV Titration 107.78 Amount Amiodarone 450 mg In 107.78 Dextrose 5% in Water 250 ml @ 0.5 MG/MIN 16.667 mls/hr IV .Q15H [facility] Rx#: [id number] Oral 2520 0 Output: Urine 2400 2275 1425 Other: Voiding Method Indwelling Catheter Indwelling Catheter Indwelling Catheter # Voids 2 4 - Exam General: [Patient awake, alert and oriented times 3. Patient in minimal distre ss Pale conjunctiva HEENT: [PERRL. EOMI. No pharyngeal erythema or exudate.] Neck: JVD present Cardiac: [Heart regularly irregular No S3. No S4. No clicks, rubs. Grade 2 aortic murmur Lungs: [Clear to auscultation bilaterally.] Abdomen: [No mass. No organomegaly. Bowel sounds presnt and normoactive in all 4 quadrants.] Extremes: [1+ edema bilateral lower extremes no cyanosis no claudication normal pulses] : Normal female genitalia Musculoskeletal: [No joint erythema, edema or tenderness.] Skin: [No rash.] Neurologic: [No lateralizing deficits. CN II - XII grossly intact.] Lymphatic: [No adenopathy.] - Labs CBC & Chem 7: 04/10/22 08:31 04/10/22 08:31 Labs: Abnormal Lab Results - Last 24 Hours (Table) 04/10/22 04/10/2204/10/22 Range/Units 05:48 08:31 08:31 RBC 3.45 L (3.80-5.40) m/uL Hgb 8.7 L (11.4-16.0) gm/dL Hct 28.9 L (34.0-46.0) % MCHC 30.1 L (31.0-37.0) g/dL RDW 16.8 H (11.5-15.5) % Plt Count 564 H (150-450) k/uL BUN 24 H (7-17) mg/dL Creatinine 1.06 H (0.52-1.04) mg/dL Glucose 116 H (74-99) mg/dL POC Glucose (mg/dL) 120 H (70-110) mg/dL Calcium 8.1 L (8.4-10.2) mg/dL 04/10/22 Range/Units 16:43 RBC (3.80-5.40) m/uL Hgb (11.4-16.0) gm/dL Hct (34.0-46.0) % MCHC (31.0-37.0) g/dL RDW (11.5-15.5) % Plt Count (150-450) k/uL BUN (7-17) mg/dL Creatinine (0.52-1.04) mg/dL Glucose (74-99) mg/dL POC Glucose (mg/dL) 141 H (70-110) mg/dL Calcium (8.4-10.2) mg/dL Assessment and Plan (1) Acute on chronic diastolic (congestive) heart failure Current Visit: Yes Status: Acute Code(s): I50.33 - ACUTE ON CHRONIC DIASTOLIC (CONGESTIVE) HEART FAILURE SNOMED Code(s): 830039152 (2) COPD exacerbation Current Visit: Yes Status: Acute Code(s): J44.1 - CHRONIC OBSTRUCTIVE PULMONARY DISEASE W (ACUTE) EXACERBATION SNOMED Code(s): 436765594 (3) Hypoxia Current Visit: Yes Status: Acute Code(s): R09.02 - HYPOXEMIA SNOMED Code(s): 191702135 (4) Acquired hypothyroidism Current Visit: No Status: Acute Code(s): E03.9 - HYPOTHYROIDISM, UNSPECIFIED SNOMED Code(s): 884886546 (5) Acute exacerbation of chronic obstructive pulmonary disease Current Visit: No Status: Acute Code(s): J44.1 - CHRONIC OBSTRUCTIVE PULMONARY DISEASE W (ACUTE) EXACERBATION SNOMED Code(s): 786516931 (6) Acute pulmonary edema Current Visit: No Status: Acute Code(s): J81.0 - ACUTE PULMONARY EDEMA SNOMED Code(s): 09888123 (7) Acute renal failure Current Visit: No Status: Acute Code(s): N17.9 - ACUTE KIDNEY FAILURE, UNSPECIFIED SNOMED Code(s): 85681551 (8) Altered mental status Current Visit: No Status: Acute Code(s): R41.82 - ALTERED MENTAL STATUS, UNSPECIFIED SNOMED Code(s): 218332903 (9) CAD (coronary atherosclerotic disease) Current Visit: No Status: Acute Code(s): I25.10 - ATHSCL HEART DISEASE OF [place] CORONARY ARTERY W/O ANG PCTRS SNOMED Code(s): 562834957 Plan: Status post EGD mild gastritis colonoscopy was not performed secondary to poor prep Judicious diuresis Diabetic control Pain management hemoglobin 8.7 Adequate blood pressure control Time with Patient: Greater than 30
[2022-04-10] MEDS ORDERED: DILTIAZEM DRIP BOLUS FROM BAG 1 MG SOLN IV ONE (18:45)
[2022-04-10] MEDS: DILTIAZEM 125 MG in SODIUM CHLORIDE 0.9% 100 ML IV SCH (18:54)
[2022-04-10 20:00] LABS: Glucose,Whole Blood 160 mg/dL (70-110)
[2022-04-10] MEDS: AMITRIPTYLINE HCL 50 MG TAB PO SCH (20:27)
[2022-04-10] MEDS: ATORVASTATIN 40 MG TAB PO SCH (20:28)
[2022-04-11 06:08] LABS: Glucose,Whole Blood 136 mg/dL (70-110)
[2022-04-11] MEDS: LEVOTHYROXINE 50 MCG TAB PO SCH (06:20)
[2022-04-11] MEDS: MIDODRINE 5 MG TAB PO SCH ×3 (06:29→16:51)
[2022-04-11] MEDS: SODIUM CHLORIDE 0.9% 1,000 ML IV SCH ×2 (06:30→09:24)
[2022-04-11 09:01] LABS: Calcium 7.5 mg/dL (8.4-10.2)
[2022-04-11] MEDS: IPRATROPIUM 0.5 MG/2.5 ML NEBU INHALATION SCH ×4 (09:01→19:26)
[2022-04-11] MEDS: SYMBICORT 80-4.5 MCG INHALER INHALATION SCH ×2 (09:02→19:26)
[2022-04-11] MEDS: METOPROLOL TARTRATE 12.5 MG TAB PO SCH ×2 (09:24→20:35)
[2022-04-11] MEDS: GABAPENTIN 100 MG CAP PO SCH ×3 (09:24→20:35)
[2022-04-11] MEDS: DILTIAZEM 125 MG in SODIUM CHLORIDE 0.9% 100 ML IV SCH (09:24)
[2022-04-11] MEDS: CEFDINIR 300 MG CAP PO SCH ×2 (09:25→20:36)
[2022-04-11] MEDS: FUROSEMIDE 40 MG TAB PO SCH (09:25)
[2022-04-11] MEDS: CYANOCOBALAMIN 500 MCG TAB PO SCH (09:25)
[2022-04-11] MEDS: AMIODARONE 200 MG TAB PO SCH ×2 (09:25→20:35)
[2022-04-11 09:37] LABS: Anisocytosis Slight; Basophils % (A) 0 %; Eosinophils # (A) 0.3 k/uL (0-0.7); Eosinophils % (A) 5 %; HCT 28.2 % (34.0-46.0); HGB 8.2 gm/dL (11.4-16.0); Hypochromasia Marked; Lymphocytes # (A) 1.4 k/uL (1.0-4.8); Lymphocytes % (A) 22 %; MCH 24.5 pg (25.0-35.0); MCHC 29.1 g/dL (31.0-37.0); MCV 84.1 fL (80.0-100.0); Mean Platelet Volume 7.5; Monocytes # (A) 0.6 k/uL (0-1.0); Monocytes % (A) 10 %; Neutrophils # (A) 3.8 k/uL (1.3-7.7); Neutrophils % (A) 60 %; Platelet Count 580 k/uL (150-450); RBC 3.36 m/uL (3.80-5.40); RDW 16.9 % (11.5-15.5); WBC 6.4 k/uL (3.8-10.6)
--- NOTE | 2022-04-11 10:30 | P.PN ---
Subjective Patient is seen in follow-up for acute kidney injury on chronic kidney disease. Renal function continues to improve. Good urine output. No vomiting or diarrhea. No active complaints. Vital signs are stable. General: Awake. No acute distress. HEENT: Head exam is unremarkable. LUNGS: Breath sounds decreased. HEART: Rate and Rhythm are regular. ABDOMEN: Soft, no distention. EXTREMITITES: No edema. Objective - Vital Signs Vital signs: Vital Signs Temp 98.6 F 04/11/22 08:00 Pulse 84 04/11/22 09:10 Resp 16 04/11/22 08:00 BP 168/70 04/11/22 08:00 Pulse Ox 96 04/11/22 08:00 FiO2 Intake & Output 04/10/22 04/11/22 04/11/22 18:59 06:59 18:59 Intake Total 1460 Output Total 1425 1400 200 Balance 35 -1400 -200 Weight 119 kg 113 kg Intake: IV 100 Intake, IV Titration 640 Amount Sodium Chloride 0.9% 1, 640 000 ml @ 80 mls/hr IV . [id number] [facility] Rx#:[id number] Oral 720 Output: Urine 1425 1400 200 Other: Voiding Method Indwelling Catheter Indwelling Catheter # Bowel Movements 4 1 - Labs CBC & Chem 7: 04/11/22 08:21 04/11/22 08:21 Labs: Abnormal Lab Results - Last 24 Hours (Table) 04/10/22 04/10/22 04/10/22 Range/Units 08:31 16:43 19:41 RBC (3.80-5.40) m/uL Hgb (11.4-16.0) gm/dL Hct (34.0-46.0) % MCH (25.0-35.0) pg MCHC (31.0-37.0) g/dL RDW (11.5-15.5) % Plt Count (150-450) k/uL Glucose (74-99) mg/dL POC Glucose (mg/dL) 141 H 160 H (70-110) mg/dL Calcium (8.4-10.2) mg/dL Iron 28 L (50-170) ug/dL % Saturation 9.63 L (12.00-45.00) Ferritin 300.0 H (10.0-291.0) ng/mL Vitamin B12 >2000.0 H (200.0-944.0) pg/mL 04/11/22 04/11/22 04/11/22 Range/Units 05:48 08:21 08:21 RBC 3.36 L (3.80-5.40) m/uL Hgb 8.2 L (11.4-16.0) gm/dL Hct 28.2 L (34.0-46.0) % MCH 24.5 L (25.0-35.0) pg MCHC 29.1 L (31.0-37.0) g/dL RDW 16.9 H (11.5-15.5) % Plt Count 580 H (150-450) k/uL Glucose 123 H (74-99) mg/dL POC Glucose (mg/dL) 136 H (70-110) mg/dL Calcium 7.5 L (8.4-10.2) mg/dL Iron (50-170) ug/dL % Saturation (12.00-45.00) Ferritin (10.0-291.0) ng/mL Vitamin B12 (200.0-944.0) pg/mL Assessment and Plan Plan: Assessment: 1. Acute kidney injury secondary to hemodynamic ATN. Renal function improving. Creatinine 0.9 today. No hydronephrosis noted on kidney ultrasound. 2. Chronic kidney disease stage IIIa secondary to nephrosclerosis with baseline creatinine near 1.2. 3. A. fib with RVR on oral amiodarone and Lopressor. Cardiology following. 4. Chronic diastolic CHF. 5. Anemia of chronic kidney disease. Iron deficiency noted. Concern for GI bleed. Surgery following. EGD done 04/10/2022 showed antral gastritis. 6. Klebsiella UTI on antibiotics. 7. Hyponatremia. Hypervolemic. Improved with diuresis. Plan: Maintain oral Lasix. Hep-Lock IV fluids. Add IV iron. Avoid nephrotoxins. Continue to monitor renal function and urine output
[2022-04-11 11:37] LABS: Glucose,Whole Blood 135 mg/dL (70-110)
[2022-04-11] MEDS: SODIUM FERRIC GLUCONAT-SUCROSE 125 MG in SODIUM CHLORIDE 0.9% 100 ML IVPB SCH (12:12)
--- NOTE | 2022-04-11 12:37 | P.PN ---
Subjective Progress Note Date: 04/11/22 On 04/10/2022, the patient is resting comfortably in bed on room air oxygen. She has COPD, valvular heart disease with moderate aortic stenosis and a component of CHF and coronary artery disease. The patient is also morbidly obese. The patient came in with a low hemoglobin and the patient was given blo od transfusion and the patient is going to undergo an EGD and colonoscopy today. The patient has no altered mentation. She is quite weak and I understood from the family that her baseline performance of function that school so poor. The patient otherwise has no complaint. Denies having any chest pain. Blood work from today shows a white count of 6.4 with hemoglobin of 8.7 and a platelet count of 564. The BUN is at 24 with a creatinine of 1.06 and a sodium levels of 138. On 04/11/2022, the patient is still on room air oxygen. Doing well. No specific complaints. Hemoglobin is stable at 8.2. The patient underwent EGD and colonoscopy yesterday and the patient was found to have antral gastritis on the EGD and colonoscopy was incomplete and needs to be redone. Otherwise, there has been no other significant events overnight. She is resting comfortably in bed on room air oxygen. Denies having any shortness of breath. Having clear liquid diet and popsicles. Objective - Vital Signs Vital signs: Vital Signs Temp 98.6 F 04/11/22 08:00 Pulse 100 04/11/22 12:21 Resp 16 04/11/22 12:10 BP 147/65 04/11/22 12:10 Pulse Ox 96 04/11/22 08:00 FiO2 Intake & Output 04/10/22 04/11/22 04/11/22 18:59 06:59 18:59 Intake Total 1460 Output Total 1425 1400 200 Balance 35 -1400 -200 Weight 119 kg 113 kg Intake: IV 100 Intake, IV Titration 640 Amount Sodium Chloride 0.9% 1, 640 000 ml @ 80 mls/hr IV . [id number] [facility] Rx#:[id number] Oral 720 Output: Urine 1425 1400 200 Other: Voiding Method Indwelling Catheter Indwelling Catheter Indwelling Catheter # Bowel Movements 4 1 - Exam No acute distress, oriented 3. No respiratory distress. The patient is on 2 L of oxygen. HEENT examination is grossly unremarkable. Neck supple. Full range of motion. No adenopathy thyromegaly or neck vein distention. Cardiovascular examination reveals regular rhythm rate. S1-S2 normal. No S3 or S4. CAMRYN 3/6 murmur noted. Heart sounds are distant. Lungs reveal mostly clear breath sounds. Minimal crackles at the bases. No wheezes. No rhonchi. Abdomen obese, with bowel sounds. No masses or tenderness. Extremities are intact. Minimal edema. No cyanosis or clubbing. Skin is without rash or lesion. Neurologic examination is brief but nonfocal. - Labs CBC & Chem 7: 04/11/22 08:21 04/11/22 08:21 Labs: Abnormal Lab Results - Last 24 Hours (Table) 04/10/22 04/10/22 04/10/22 Range/Units 08:31 16:43 19:41 RBC (3.80-5.40) m/uL Hgb (11.4-16.0) gm/dL Hct (34.0-46.0) % MCH (25.0-35.0) pg MCHC (31.0-37.0) g/dL RDW (11.5-15.5) % Plt Count (150-450) k/uL Glucose (74-99) mg/dL POC Glucose (mg/dL) 141 H 160 H (70-110) mg/dL Calcium (8.4-10.2) mg/dL Iron 28 L (50-170) ug/dL % Saturation 9.63 L (12.00-45.00) Ferritin 300.0 H (10.0-291.0) ng/mL Vitamin B12 >2000.0 H (200.0-944.0) pg/mL 04/11/22 04/11/22 04/11/22 Range/Units 05:48 08:21 08:21 RBC 3.36 L (3.80-5.40) m/uL Hgb 8.2 L (11.4-16.0) gm/dL Hct 28.2 L (34.0-46.0) % MCH 24.5 L (25.0-35.0) pg MCHC 29.1 L (31.0-37.0) g/dL RDW 16.9 H (11.5-15.5) % Plt Count 580 H (150-450) k/uL Glucose 123 H (74-99) mg/dL POC Glucose (mg/dL) 136 H (70-110) mg/dL Calcium 7.5 L (8.4-10.2) mg/dL Iron (50-170) ug/dL % Saturation (12.00-45.00) Ferritin (10.0-291.0) ng/mL Vitamin B12 (200.0-944.0) pg/mL 04/11/22 Range/Units 11:36 RBC (3.80-5.40) m/uL Hgb (11.4-16.0) gm/dL Hct (34.0-46.0) % MCH (25.0-35.0) pg MCHC (31.0-37.0) g/dL RDW (11.5-15.5) % Plt Count (150-450) k/uL Glucose (74-99) mg/dL POC Glucose (mg/dL) 135 H (70-110) mg/dL Calcium (8.4-10.2) mg/dL Iron (50-170) ug/dL % Saturation (12.00-45.00) Ferritin (10.0-291.0) ng/mL Vitamin B12 (200.0-944.0) pg/mL Assessment and Plan Plan: acute hypoxic respiratory failure, recovered and the patient is currently on room air oxygen Valvular heart disease with aortic valve stenosis and a preserved LV function Small right-sided pleural effusion acute on chronic anemia Shortness of breath, most likely secondary to fluid overload/CHF, complicated by worsening renal failure. A limited infiltrate/pneumonia, right lung base, cannot be excluded. History of COPD, from previous history of tobacco use. History of chronic diastolic CHF. CAD with previous stent placement. History of moderate aortic stenosis. History of CVA/TIA. History of diabetes mellitus. Morbid obesity. Hyperlipidemia. Hypertension. Hypothyroidism. Multiple other medical problems and comorbidities. Plan: Overall stable hemoglobin EGD showing antral gastritis, colonoscopy is to follow Continue oral Lasix Continue oral amiodarone and the patient's cardiac rhythm is currently in sinus sinus with occasional PACs Continue beta blockers Continue Symbicort as maintenance for her COPD Continue Lipitor Poor Functional status
--- NOTE | 2022-04-11 13:17 | P.PN ---
Subjective Progress Note Date: 04/11/22 CHIEF COMPLAINT: Anemia HISTORY OF PRESENT ILLNESS: Patient is status post EGD. EGD had revealed gastritis. Colonoscopy was not performed due to poor bowel prep. Patient denies any abdominal pain. She denies any nausea vomiting. She has had bowel movements. Reports no blood in her stools. She is tolerating clear liquid diet. Afebrile. WBC is 6.4 hemoglobin 8.2 platelets are 580 iron level low. Nephrology has started patient on IV iron. Patient's A. fib is followed by cardiology. Patient seen and examined with Dr. Head PHYSICAL EXAM: VITAL SIGNS: Reviewed. GENERAL: Well-developed in no acute distress. HEENT: No sclera icterus. Extraocular movements grossly intact. Moist buccal mucosa. Head is atraumatic, normocephalic. ABDOMEN: Soft. Nondistended. Nontender. NEUROLOGIC: Awake and alert ASSESSMENT: 1. Anemia 2. Status post EGD revealing antral gastritis. Colonoscopy not completed due to poor bowel prep PLAN: -Continue clear liquid diet -Continue monitor signs and symptoms of bleeding -Continue to monitor hemoglobin Physician Sweat Band Separator note has been reviewed by physician. Signing provider agrees with the documented findings, assessment, and plan of care. Objective - Vital Signs Vital signs: Vital Signs Temp 98.6 F 04/11/22 08:00 Pulse 100 04/11/22 12:21 Resp 16 04/11/22 12:10 BP 147/65 04/11/22 12:10 Pulse Ox 96 04/11/22 08:00 FiO2 Intake & Output 04/10/22 04/11/22 04/11/22 18:59 06:59 18:59 Intake Total 1460 Output Total 1425 1400 200 Balance 35 -1400 -200 Weight 119 kg 113 kg Intake: IV 100 Intake, IV Titration 640 Amount Sodium Chloride 0.9% 1, 640 000 ml @ 80 mls/hr IV . [id number] [facility] Rx#:[id number] Oral 720 Output: Urine 1425 1400 200 Other: Voiding Method Indwelling Catheter Indwelling Catheter Indwelling Catheter # Bowel Movements 4 1 - Labs CBC & Chem 7: 04/11/22 08:21 04/11/22 08:21 Labs: Abnormal Lab Results - Last 24 Hours (Table) 04/10/22 04/10/22 04/10/22 Range/Units 08:31 16:43 19:41 RBC (3.80-5.40) m/uL Hgb (11.4-16.0) gm/dL Hct (34.0-46.0) % MCH (25.0-35.0) pg MCHC (31.0-37.0) g/dL RDW (11.5-15.5) % Plt Count (150-450) k/uL Glucose (74-99) mg/dL POC Glucose (mg/dL) 141 H 160 H (70-110) mg/dL Calcium (8.4-10.2) mg/dL Iron 28 L (50-170) ug/dL % Saturation 9.63 L (12.00-45.00) Ferritin 300.0 H (10.0-291.0) ng/mL Vitamin B12 >2000.0 H (200.0-944.0) pg/mL 04/11/22 04/11/22 04/11/22 Range/Units 05:48 08:21 08:21 RBC 3.36 L (3.80-5.40) m/uL Hgb 8.2 L (11.4-16.0) gm/dL Hct 28.2 L (34.0-46.0) % MCH 24.5 L (25.0-35.0) pg MCHC 29.1 L (31.0-37.0) g/dL RDW 16.9 H (11.5-15.5) % Plt Count 580 H (150-450) k/uL Glucose 123 H (74-99) mg/dL POC Glucose (mg/dL) 136 H (70-110) mg/dL Calcium 7.5 L (8.4-10.2) mg/dL Iron (50-170) ug/dL % Saturation (12.00-45.00) Ferritin (10.0-291.0) ng/mL Vitamin B12 (200.0-944.0) pg/mL 04/11/22 Range/Units 11:36 RBC (3.80-5.40) m/uL Hgb (11.4-16.0) gm/dL Hct (34.0-46.0) % MCH (25.0-35.0) pg MCHC (31.0-37.0) g/dL RDW (11.5-15.5) % Plt Count (150-450) k/uL Glucose (74-99) mg/dL POC Glucose (mg/dL) 135 H (70-110) mg/dL Calcium (8.4-10.2) mg/dL Iron (50-170) ug/dL % Saturation (12.00-45.00) Ferritin (10.0-291.0) ng/mL Vitamin B12 (200.0-944.0) pg/mL
[2022-04-11] MEDS: TAMSULOSIN 0.4 MG CAP.ER.24H PO SCH (13:36)
--- NOTE | 2022-04-11 14:03 | P.PN ---
Subjective Progress Note Date: 04/11/22 Chief Complaint: Shortness of breath dyspnea (This is a 86-year-old female well-known to my practice with past medical history of COPD CHF monitor aortic stenosis coronary artery disease presented to the emergency department with shortness of breath. Patient was recently hospita [facility] states that she has worsening shortness of breath or past several days, the dyspnea became clearly worse at 3 AM she took 3 of her nebulizer treatments without any improvement she does not wear oxygen at home upon EMS arrival O2 sats were in the mid 80s with increased work of breathing. Placed on nonrebreather denies fever chills or cough has been taking Lasix daily without missing any doses and Mr. worsening lower extremity edema patient was not on antibiotics or steroids no other alleviating or precipitating factors however patient does have chronic anemia as well.) 04/03/2022 Evaluated by cardiology. Bilateral lower extremity edema at baseline. Diuretics transitioned to oral as per cardiology. Renal function improving. Actively grieving, reports recent loss of grandson and daughter, as well as another family member recently diagnosed with cancer. Denies chest pain, palpit ations or increased shortness of breath. Maintaining O2 sats in the 90s on 2 L nasal cannula. 04/05/2022 hypotensive during the night, systolic blood pressure dropped as low mid 70s required IV fluid bolus. Increased weakness, fatigued. This morning creatinine significantly worsened, BUN jumped to 57, creatinine increased to 3.49. Metformin and KAE inhibitor discontinued. Lasix held. Currently requiring 3 L nasal cannula to maintain O2 sats in the low 90s. ABGs noted. Chest x-ray reporting bilateral infiltrate and small right effusion, correlate for CHF, otherwise consider pneumonia. 04/06/22 continued hypotension, last night, received additional IV fluids. Worsening renal function this morning, BUN 63, creatinine 4.16. Pro-calcitonin elevated 0.43, maintained on IV antibiotics of Rocephin. T-max 99.6, WBC 13. Stool for occult blood negative, Hemoglobin 8.3, platelets 410. Sodium 127, potassium 5.7. More alert today. Denies chest pain, palpitations. 04/11/2022 underwent EGD reporting antral gastritis, colonoscopy unable to be performed secondary to poor bowel prep. Hemoglobin 8.2, iron 580, receiving IV iron. Renal function significantly improved. Feels better. Telemetry sinus rhythm, maintained on oral amiodarone and beta dejan, diuresed on oral Lasix. Continues on cefdnir for Klebsiella UTI. Objective - Vital Signs Vital signs: Vital Signs Temp 98.6 F 04/11/22 08:00 Pulse 100 04/11/22 12:21 Resp 16 04/11/22 12:10 BP 147/65 04/11/22 12:10 Pulse Ox 96 04/11/22 08:00 FiO2 Intake & Output 04/10/22 04/11/22 04/11/22 18:59 06:59 18:59 Intake Total 1460 Output Total 1425 1400 200 Balance 35 -1400 -200 Weight 119 kg 113 kg Intake: IV 100 Intake, IV Titration 640 Amount Sodium Chloride 0.9% 1, 640 000 ml @ 80 mls/hr IV . [id number] [facility] Rx#:[id number] Oral 720 Output: Urine 1425 1400 200 Other: Voiding Method Indwelling Catheter Indwelling Catheter Indwelling Catheter # Bowel Movements 4 1 - Exam - Exam General: [Patient alert and oriented times 3. NAD HEENT: [PERRL. Pale conjunctiva,EOMI.MMM. Neck: Supple, no JVD Cardiac: [Heart regularly irregular No S3. No S4. No clicks, rubs. Grade 2 aortic murmur Lungs: No rhonchi, fine bibasilar crackles Abdomen: [Soft, No mass. No organomegaly. Bowel sounds presnt and normoactive in all 4 quadrants.] Extremes: Minimal edema bilateral lower extremities at baseline, no cyanosis no claudication normal pulses] Skin: [Warm and dry, No rash.] - Labs CBC & Chem 7: 04/11/22 08:21 04/11/22 08:21 Labs: Abnormal Lab Results - Last 24 Hours (Table) 04/10/22 04/10/22 04/10/22 Range/Units 08:31 16:43 19:41 RBC (3.80-5.40) m/uL Hgb (11.4-16.0) gm/dL Hct (34.0-46.0) % MCH (25.0-35.0) pg MCHC (31.0-37.0) g/dL RDW (11.5-15.5) % Plt Count (150-450) k/uL Glucose (74-99) mg/dL POC Glucose (mg/dL) 141 H 160 H (70-110) mg/dL Calcium (8.4-10.2) mg/dL Iron 28 L (50-170) ug/dL % Saturation 9.63 L (12.00-45.00) Ferritin 300.0 H (10.0-291.0) ng/mL Vitamin B12 >2000.0 H (200.0-944.0) pg/mL 04/11/22 04/11/22 04/11/22 Range/Units 05:48 08:21 08:21 RBC 3.36 L (3.80-5.40) m/uL Hgb 8.2 L (11.4-16.0) gm/dL Hct 28.2 L (34.0-46.0) % MCH 24.5 L (25.0-35.0) pg MCHC 29.1 L (31.0-37.0) g/dL RDW 16.9 H (11.5-15.5) % Plt Count 580 H (150-450) k/uL Glucose 123 H (74-99) mg/dL POC Glucose (mg/dL) 136 H (70-110) mg/dL Calcium 7.5 L (8.4-10.2) mg/dL Iron (50-170) ug/dL % Saturation (12.00-45.00) Ferritin (10.0-291.0) ng/mL Vitamin B12 (200.0-944.0) pg/mL 04/11/22 Range/Units 11:36 RBC (3.80-5.40) m/uL Hgb (11.4-16.0) gm/dL Hct (34.0-46.0) % MCH (25.0-35.0) pg MCHC (31.0-37.0) g/dL RDW (11.5-15.5) % Plt Count (150-450) k/uL Glucose (74-99) mg/dL POC Glucose (mg/dL) 135 H (70-110) mg/dL Calcium (8.4-10.2) mg/dL Iron (50-170) ug/dL % Saturation (12.00-45.00) Ferritin (10.0-291.0) ng/mL Vitamin B12 (200.0-944.0) pg/mL Assessment and Plan Assessment: (1) Acute on chronic diastolic (congestive) heart failure Current Visit: Yes Status: Acute Code(s): I50.33 - ACUTE ON CHRONIC DIASTOLIC (CONGESTIVE) HEART FAILURE SNOMED Code(s): 043297460 (2) COPD exacerbation Current Visit: Yes Status: Acute Code(s): J44.1 - CHRONIC OBSTRUCTIVE PULMONARY DISEASE W (ACUTE) EXACERBATION SNOMED Code(s): 374737825 (3) Hypoxia Current Visit: Yes Status: Acute Code(s): R09.02 - HYPOXEMIA SNOMED Code(s): 916367146 (4) Acquired hypothyroidism Current Visit: No Status: Acute Code(s): E03.9 - HYPOTHYROIDISM, UNSPECIFIED SNOMED Code(s): 969238423 (5) Acute exacerbation of chronic obstructive pulmonary disease Current Visit: No Status: Acute Code(s): J44.1 - CHRONIC OBSTRUCTIVE PULMONA RY DISEASE W (ACUTE) EXACERBATION SNOMED Code(s): 019932473 (6) Acute pulmonary edema Current Visit: No Status: Acute Code(s): J81.0 - ACUTE PULMONARY EDEMA SNOMED Code(s): 40868927 (7) Acute renal failure secondary to medication induced including diuresing, subsequent hypotension Current Visit: No Status: Acute Code(s): N17.9 - ACUTE KIDNEY FAILURE, UNSPECIFIED SNOMED Code(s): 68700781 (8) Altered mental status, acute metabolic encephalopathy secondary to hypotension, acute renal failure, fluid overload, possible pneumonia Current Visit: No Status: Acute Code(s): R41.82 - ALTERED MENTAL STATUS, UNSPECIFIED SNOMED Code(s): 709715361 (9) CAD (coronary atherosclerotic disease) Current Visit: No Status: Acute Code(s): I25.10 - ATHSCL HEART DISEASE OF [place] CORONARY ARTERY W/O ANG PCTRS SNOMED Code(s): 006746913 (10) actively grieving, patient does of grandson and daughter as well as recent family diagnosed with cancer. (11) chronic back pain (12) paroxysmal atrial fibrillation (13) symptomatic anemia, status post 1 unit packed RBCs, iron deficient. Status post EGD reported antral gastritis. (14) hyperkalemia secondary to acute renal failure (15) possible right lower lobe pneumonia, pulmonary following (16) acute UTI with Klebsiella Plan: Continue on current medication regimen ,monitoring and symptomatic treatment. Colonoscopy rescheduled for . Continue avoiding all nephrotoxins. Close monitoring of CBC, renal function, electrolytes with repeat labs ordered for a.m. maintain oral Lasix, antiarrhythmics. Prognosis guarded given multiple complex medical issues. Discharge planning in progress tentatively for post colonoscopy. The impression and plan of care has been dictated as directed. : I performed a history and examination of this patient, discussed the same with the dictator. I agree with the dictator's note ,documented as a scribe. Any additional findings or plans will be noted.
[2022-04-11 16:47] LABS: Glucose,Whole Blood 132 mg/dL (70-110)
[2022-04-11] MEDS: AMITRIPTYLINE HCL 50 MG TAB PO SCH (20:35)
[2022-04-11] MEDS: ATORVASTATIN 40 MG TAB PO SCH (20:35)
[2022-04-11] MEDS: HYDROcodone/APAP 5-325MG 1 EACH TAB PO PRN (20:36)
[2022-04-11 21:02] LABS: Glucose,Whole Blood 124 mg/dL (70-110)
[2022-04-12] MEDS: MIDODRINE 5 MG TAB PO SCH ×2 (06:34→13:05)
[2022-04-12] MEDS: LEVOTHYROXINE 50 MCG TAB PO SCH (06:36)
[2022-04-12 07:30] LABS: Glucose,Whole Blood 139 mg/dL (70-110)
[2022-04-12] MEDS: METOPROLOL TARTRATE 12.5 MG TAB PO SCH (08:33)
[2022-04-12] MEDS: CEFDINIR 300 MG CAP PO SCH ×2 (08:34→20:40)
[2022-04-12] MEDS: CYANOCOBALAMIN 500 MCG TAB PO SCH (08:34)
[2022-04-12] MEDS: FUROSEMIDE 40 MG TAB PO SCH (08:34)
[2022-04-12] MEDS: AMIODARONE 200 MG TAB PO SCH ×2 (08:34→20:41)
[2022-04-12] MEDS: TAMSULOSIN 0.4 MG CAP.ER.24H PO SCH (08:34)
[2022-04-12] MEDS: GABAPENTIN 100 MG CAP PO SCH ×3 (08:34→20:41)
[2022-04-12] MEDS: SYMBICORT 80-4.5 MCG INHALER INHALATION SCH ×2 (08:38→20:21)
[2022-04-12] MEDS: IPRATROPIUM 0.5 MG/2.5 ML NEBU INHALATION SCH ×4 (08:38→20:21)
[2022-04-12] MEDS ORDERED: PEG 3350 (236 GM/BTL) + LYTES 4,000 ML BOTTLE PO ONE (09:00)
[2022-04-12] MEDS ORDERED: METOPROLOL TARTRATE 12.5 MG TAB PO STA (09:09)
[2022-04-12] MEDS: SODIUM FERRIC GLUCONAT-SUCROSE 125 MG in SODIUM CHLORIDE 0.9% 100 ML IVPB SCH (09:30)
[2022-04-12 10:05] LABS: Anisocytosis Slight; Calcium 7.9 mg/dL (8.4-10.2); HCT 29.7 % (34.0-46.0); HGB 8.7 gm/dL (11.4-16.0); Hypochromasia Marked; MCH 24.7 pg (25.0-35.0); MCHC 29.2 g/dL (31.0-37.0); MCV 84.5 fL (80.0-100.0); Mean Platelet Volume 8.2; Platelet Count 561 k/uL (150-450); Potassium 3.7 mmol/L (3.5-5.1); RBC 3.51 m/uL (3.80-5.40); WBC 7.8 k/uL (3.8-10.6)
[2022-04-12 11:33] LABS: Glucose,Whole Blood 96 mg/dL (70-110)
--- NOTE | 2022-04-12 11:46 | P.PN ---
Subjective Patient is seen in follow-up for acute kidney injury on chronic kidney disease. Renal function improved. Good urine output. No vomiting or diarrhea. No active complaints. Hylton catheter to be removed today. Vital signs are stable. General: Awake. No acute distress. HEENT: Head exam is unremarkable. LUNGS: Breath sounds decreased. HEART: Rate and Rhythm are regular. ABDOMEN: Soft, no distention. EXTREMITITES: No edema. Objective - Vital Signs Vital signs: Vital Signs Temp 98.6 F 04/12/22 08:00 Pulse 88 04/12/22 11:32 Resp 18 04/12/22 08:00 BP 156/73 04/12/22 08:00 Pulse Ox 94 L 04/12/22 08:00 FiO2 Intake & Output 04/11/22 04/12/22 04/12/22 18:59 06:59 18:59 Intake Total 220 Output Total 1075 400 550 Balance -855 -400 -550 Weight 112 kg Intake: Oral 220 Output: Urine 1075 400 550 Other: Voiding Method Indwelling Catheter Indwelling Catheter Indwelling Catheter - Labs CBC & Chem 7: 04/12/22 08:47 04/12/22 08:47 Labs: Abnormal Lab Results - Last 24 Hours (Table) 04/11/22 04/11/22 04/12/22 Range/Units 16:46 21:01 07:28 RBC (3.80-5.40) m/uL Hgb (11.4-16.0) gm/dL Hct (34.0-46.0) % MCH (25.0-35.0) pg MCHC (31.0-37.0) g/dL RDW (11.5-15.5) % Plt Count (150-450) k/uL Carbon Dioxide (22-30) mmol/L Glucose (74-99) mg/dL POC Glucose (mg/dL) 132 H 124 H 139 H (70-110) mg/dL Calcium (8.4-10.2) mg/dL Magnesium (1.6-2.3) mg/dL 04/12/22 04/12/22 04/12/22 Range/Units 08:47 08:47 08:47 RBC 3.51 L (3.80-5.40) m/uL Hgb 8.7 L (11.4-16.0) gm/dL Hct 29.7 L (34.0-46.0) % MCH 24.7 L (25.0-35.0) pg MCHC 29.2 L (31.0-37.0) g/dL RDW 17.0 H (11.5-15.5) % Plt Count 561 H (150-450) k/uL Carbon Dioxide 31 H (22-30) mmol/L Glucose 127 H (74-99) mg/dL POC Glucose (mg/dL) (70-110) mg/dL Calcium 7.9 L (8.4-10.2) mg/dL Magnesium 1.5 L (1.6-2.3) mg/dL Assessment and Plan Plan: Assessment: 1. Acute kidney injury secondary to hemodynamic ATN. Renal function improving. Creatinine 0.93 today. No hydronephrosis noted on kidney ultrasound. 2. Chronic kidney disease stage IIIa secondary to nephrosclerosis with baseline creatinine near 1.2. 3. A. fib with RVR on oral amiodarone and Lopressor. Cardiology following. 4. Chronic diastolic CHF. 5. Anemia of chronic kidney disease. Iron deficiency noted. Concern for GI bleed. Surgery following. EGD done 04/10/2022 showed antral gastritis. 6. Klebsiella UTI on antibiotics. 7. Hyponatremia. Hypervolemic. Improved with diuresis. 8. Hypomagnesemia from diuresis. Plan: Maintain oral Lasix. Maintain IV iron. Replace magnesium. Avoid nephrotoxins. Continue to monitor renal function and urine output. Maintain Flomax. DC Hylton catheter today and monitor serial bladder scans to make sure no urinary retention.
--- NOTE | 2022-04-12 12:11 | P.PN ---
Subjective Progress Note Date: 04/12/22 CHIEF COMPLAINT: Anemia HISTORY OF PRESENT ILLNESS: Patient is status post EGD. EGD had revealed gastritis. Colonoscopy was not performed due to poor bowel prep. Patient is lying in bed comfortably. She has been transitioned to oral Lasix by cardiology service. She denies any abdominal pain. She is to start GoLYTELY prep today. She is tolerating clear liquid diet. Nephrology has started patient on IV iron. Patient's A. fib is followed by cardiology. WBC 7.8 hemoglobin 8.7 platelets 561 sodium is 137 potassium is 3.7 creatinine 0.93 magnesium 1.5 Patient seen and examined with Dr. Mccall PHYSICAL EXAM: VITAL SIGNS: Reviewed. GENERAL: Well-developed in no acute distress. HEENT: No sclera icterus. Extraocular movements grossly intact. Moist buccal mucosa. Head is atraumatic, normocephalic. ABDOMEN: Soft. Nondistended. Nontender. NEUROLOGIC: Awake and alert ASSESSMENT: 1. Anemia 2. Status post EGD revealing antral gastritis. Colonoscopy not completed due to poor bowel prep 3. Hypomagnesemia PLAN: -Patient scheduled for colonoscopy tomorrow 04/13/[address] mccall -Start GoLYTELY prep today -Continue clear liquid diet -Nothing by mouth after midnight -Magnesium being replaced -Continue monitor signs and symptoms of bleeding -Continue to monitor hemoglobin Physician Spool Sorter note has been reviewed by physician. Signing provider agrees with the documented findings, assessment, and plan of care. Objective - Vital Signs Vital signs: Vital Signs Temp 98.6 F 04/12/22 08:00 Pulse 89 04/12/22 11:43 Resp 18 04/12/22 08:00 BP 156/73 04/12/22 08:00 Pulse Ox 94 L 04/12/22 08:00 FiO2 Intake & Output 04/11/22 04/12/22 04/12/22 18:59 06:59 18:59 Intake Total 220 Output Total 1075 400 550 Balance -855 -400 -550 Weight 112 kg Intake: Oral 220 Output: Urine 1075 400 550 Other: Voiding Method Indwelling Catheter Indwelling Catheter Indwelling Catheter - Labs CBC & Chem 7: 04/12/22 08:47 04/12/22 08:47 Labs: Abnormal Lab Results - Last 24 Hours (Table) 04/11/22 04/11/22 04/12/22 Range/Units 16:46 21:01 07:28 RBC (3.80-5.40) m/uL Hgb (11.4-16.0) gm/dL Hct (34.0-46.0) % MCH (25.0-35.0) pg MCHC (31.0-37.0) g/dL RDW (11.5-15.5) % Plt Count (150-450) k/uL Carbon Dioxide (22-30) mmol/L Glucose (74-99) mg/dL POC Glucose (mg/dL) 132 H 124 H 139 H (70-110) mg/dL Calcium (8.4-10.2) mg/dL Magnesium (1.6-2.3) mg/dL 04/12/22 04/12/22 04/12/22 Range/Units 08:47 08:47 08:47 RBC 3.51 L (3.80-5.40) m/uL Hgb 8.7 L (11.4-16.0) gm/dL Hct 29.7 L (34.0-46.0) % MCH 24.7 L (25.0-35.0) pg MCHC 29.2 L (31.0-37.0) g/dL RDW 17.0 H (11.5-15.5) % Plt Count 561 H (150-450) k/uL Carbon Dioxide 31 H (22-30) mmol/L Glucose 127 H (74-99) mg/dL POC Glucose (mg/dL) (70-110) mg/dL Calcium 7.9 L (8.4-10.2) mg/dL Magnesium 1.5 L (1.6-2.3) mg/dL
--- NOTE | 2022-04-12 12:37 | P.PN ---
Subjective Progress Note Date: 04/12/22 On 04/10/2022, the patient is resting comfortably in bed on room air oxygen. She has COPD, valvular heart disease with moderate aortic stenosis and a component of CHF and coronary artery disease. The patient is also morbidly obese. The patient came in with a low hemoglobin and the patient was given blo od transfusion and the patient is going to undergo an EGD and colonoscopy today. The patient has no altered mentation. She is quite weak and I understood from the family that her baseline performance of function that school so poor. The patient otherwise has no complaint. Denies having any chest pain. Blood work from today shows a white count of 6.4 with hemoglobin of 8.7 and a platelet count of 564. The BUN is at 24 with a creatinine of 1.06 and a sodium levels of 138. On 04/11/2022, the patient is still on room air oxygen. Doing well. No specific complaints. Hemoglobin is stable at 8.2. The patient underwent EGD and colonoscopy yesterday and the patient was found to have antral gastritis on the EGD and colonoscopy was incomplete and needs to be redone. Otherwise, there has been no other significant events overnight. She is resting comfortably in bed on room air oxygen. Denies having any shortness of breath. Having clear liquid diet and popsicles. 04/12/2022, the patient is doing well. No specific complaints. The patient's has a hemoglobin of 8.7 which is essentially stable. EGD was completed. Colonoscopies to follow. No other issues for now. Her COPD is stable. She has a moderate degree of aortic stenosis. No signs of any decompensated heart failure. She remains on room air oxygen at this point in time. Objective - Vital Signs Vital signs: Vital Signs Temp 98.3 F 04/12/22 12:18 Pulse 80 04/12/22 12:18 Resp 18 04/12/22 12:18 BP 153/60 04/12/22 12:18 Pulse Ox 95 04/12/22 12:18 FiO2 Intake & Output 04/11/22 04/12/22 04/12/22 18:59 06:59 18:59 Intake Total 220 Output Total 1075 400 550 Balance -858 -400 -550 Weight 112 kg Intake: Oral 220 Output: Urine 1075 400 550 Other: Voiding Method Indwelling Catheter Indwelling Catheter Indwelling Catheter - Exam No acute distress, oriented 3. No respiratory distress. The patient is on 2 L of oxygen. HEENT examination is grossly unremarkable. Neck supple. Full range of motion. No adenopathy thyromegaly or neck vein distention. Cardiovascular examination reveals regular rhythm rate. S1-S2 normal. No S3 or S4. CAMRYN 3/6 murmur noted. Heart sounds are distant. Lungs reveal mostly clear breath sounds. Minimal crackles at the bases. No wheezes. No rhonchi. Abdomen obese, with bowel sounds. No masses or tenderness. Extremities are intact. Minimal edema. No cyanosis or clubbing. Skin is without rash or lesion. Neurologic examination is brief but nonfocal. - Labs CBC & Chem 7: 04/12/22 08:47 04/12/22 08:47 Labs: Abnormal Lab Results - Last 24 Hours (Table) 04/11/22 04/11/22 04/12/22 Range/Units 16:46 21:01 07:28 RBC (3.80-5.40) m/uL Hgb (11.4-16.0) gm/dL Hct (34.0-46.0) % MCH (25.0-35.0) pg MCHC (31.0-37.0) g/dL RDW (11.5-15.5) % Plt Count (150-450) k/uL Carbon Dioxide (22-30) mmol/L Glucose (74-99) mg/dL POC Glucose (mg/dL) 132 H 124 H 139 H (70-110) mg/dL Calcium (8.4-10.2) mg/dL Magnesium (1.6-2.3) mg/dL 04/12/22 04/12/22 04/12/22 Range/Units 08:47 08:47 08:47 RBC 3.51 L (3.80-5.40) m/uL Hgb 8.7 L (11.4-16.0) gm/dL Hct 29.7 L (34.0-46.0) % MCH 24.7 L (25.0-35.0) pg MCHC 29.2 L (31.0-37.0) g/dL RDW 17.0 H (11.5-15.5) % Plt Count 561 H (150-450) k/uL Carbon Dioxide 31 H (22-30) mmol/L Glucose 127 H (74-99) mg/dL POC Glucose (mg/dL) (70-110) mg/dL Calcium 7.9 L (8.4-10.2) mg/dL Magnesium 1.5 L (1.6-2.3) mg/dL Assessment and Plan Plan: acute hypoxic respiratory failure, recovered and the patient is currently on room air oxygen, clinically stable Valvular heart disease with aortic valve stenosis and a preserved LV function Small right-sided pleural effusion acute on chronic anemia Shortness of breath, most likely secondary to fluid overload/CHF, complicated by worsening renal failure. A limited infiltrate/pneumonia, right lung base, cannot be excluded. History of COPD, from previous history of tobacco use. History of chronic diastolic CHF. CAD with previous stent placement. History of moderate aortic stenosis. History of CVA/TIA. History of diabetes mellitus. Morbid obesity. Hyperlipidemia. Hypertension. Hypothyroidism. Multiple other medical problems and comorbidities. Plan: Colonoscopy to be done tomorrow to complete the GI workup Overall stable hemoglobin and 11 as of 8.7 EGD showing antral gastritis, colonoscopy is to follow Continue oral Lasix Continue oral amiodarone and the patient's cardiac rhythm is currently in sinus sinus with occasional PACs Continue beta blockers Continue Symbicort as maintenance for her COPD Continue Lipitor Poor Functional status
[2022-04-12] MEDS: MAGNESIUM SULFATE-D5W PMX 1 GM in DEXTROSE/WATER 1 100ML.BAG IVPB SCH ×2 (13:05→16:13)
--- NOTE | 2022-04-12 16:45 | P.PN ---
Subjective Progress Note Date: 04/12/22 Chief Complaint: Shortness of breath dyspnea (This is a 86-year-old female well-known to my practice with past medical history of COPD CHF monitor aortic stenosis coronary artery disease presented to the emergency department with shortness of breath. Patient was recently hosp[facility] states that she has worsening shortness of breath or past several days, the dyspnea became clearly worse at 3 AM she took 3 of her nebulizer treatments without any improvement she does not wear oxygen at home upon EMS arrival O2 sats were in the mid 80s with increased work of breathing. Placed on nonrebreather denies fever chills or cough has been taking Lasix daily without missing any doses and Mr. worsening lower extremity edema patient was not on antibiotics or steroids no other alleviating or precipitating factors however patient does have chronic anemia as well.) 04/03/2022 Evaluated by cardiology. Bilateral lower extremity edema at baseline. Diuretics transitioned to oral as per cardiology. Renal function improving. Actively grieving, reports recent loss of grandson and daughter, as well as another family member recently diagnosed with cancer. Denies chest pain, palpit ations or increased shortness of breath. Maintaining O2 sats in the 90s on 2 L nasal cannula. 04/05/2022 hypotensive during the night, systolic blood pressure dropped as low mid 70s required IV fluid bolus. Increased weakness, fatigued. This morning creatinine significantly worsened, BUN jumped to 57, creatinine increased to 3.49. Metformin and KAE inhibitor discontinued. Lasix held. Currently requiring 3 L nasal cannula to maintain O2 sats in the low 90s. ABGs noted. Chest x-ray reporting bilateral infiltrate and small right effusion, correlate for CHF, otherwise consider pneumonia. 04/06/22 continued hypotension, last night, received additional IV fluids. Worsening renal function this morning, BUN 63, creatinine 4.16. Pro-calcitonin elevated 0.43, maintained on IV antibiotics of Rocephin. T-max 99.6, WBC 13. Stool for occult blood negative, Hemoglobin 8.3, platelets 410. Sodium 127, potassium 5.7. More alert today. Denies chest pain, palpitations. 04/11/2022 underwent EGD reporting antral gastritis, colonoscopy unable to be performed secondary to poor bowel prep. Hemoglobin 8.2, iron 580, receiving IV iron. Renal function significantly improved. Feels better. Telemetry sinus rhythm, maintained on oral amiodarone and beta dejan, diuresed on oral Lasix. Continues on cefdnir for Klebsiella UTI. 04/12/2022 yesterday morning converted to sinus rhythm with Cardizem drip discontinued.No overnight events. Receiving supplementation for magnesium of 1.5. Colonoscopy pending-scheduled for tomorrow. Denies chest pain, palpitations or increasing shortness of breath. Maintaining O2 sats in the 90s on room air. BUN 10, creatinine 0.93. Blood sugars controlled. Objective - Vital Signs Vital signs: Vital Signs Temp 98.3 F 04/12/22 12:18 Pulse 92 04/12/22 15:54 Resp 18 04/12/22 12:18 BP 153/60 04/12/22 12:18 Pulse Ox 95 04/12/22 12:18 FiO2 Intake & Output 04/11/22 04/12/22 04/12/22 18:59 06:59 18:59 Intake Total 220 240 Output Total 1075 400 550 Balance -855 -400 -310 Weight 112 kg Intake: Oral 220 240 Output: Urine 1075 400 550 Other: Voiding Method Indwelling Catheter Indwelling Catheter Indwelling Catheter # Bowel Movements 2 - Exam - Exam General: [Patient alert and oriented times 3. NAD HEENT: [PERRL. Pale conjunctiva,EOMI.MMM. Neck: Supple, no JVD Cardiac: [Heart regularly irregular No S3. No S4. No clicks, rubs. Grade 2 aortic murmur Lungs: No rhonchi, fine bibasilar crackles Abdomen: [Soft, No mass. No organomegaly. Bowel sounds presnt and normoactive in all 4 quadrants.] Extremes: Minimal edema bilateral lower extremities at baseline, no cyanosis no claudication normal pulses] Skin: [Warm and dry, No rash.] - Labs CBC & Chem 7: 04/12/22 08:47 04/12/22 08:47 Labs: Abnormal Lab Results - Last 24 Hours (Table) 04/11/22 04/11/22 04/12/22 Range/Units 16:46 21:01 07:28 RBC (3.80-5.40) m/uL Hgb (11.4-16.0) gm/dL Hct (34.0-46.0) % MCH (25.0-35.0) pg MCHC (31.0-37.0) g/dL RDW (11.5-15.5) % Plt Count (150-450) k/uL Carbon Dioxide (22-30) mmol/L Glucose (74-99) mg/dL POC Glucose (mg/dL) 132 H 124 H 139 H (70-110) mg/dL Calcium (8.4-10.2) mg/dL Magnesium (1.6-2.3) mg/dL 04/12/22 04/12/22 04/12/22 Range/Units 08:47 08:47 08:47 RBC 3.51 L (3.80-5.40) m/uL Hgb 8.7 L (11.4-16.0) gm/dL Hct 29.7 L (34.0-46.0) % MCH 24.7 L (25.0-35.0) pg MCHC 29.2 L (31.0-37.0) g/dL RDW 17.0 H (11.5-15.5) % Plt Count 561 H (150-450) k/uL Carbon Dioxide 31 H (22-30) mmol/L Glucose 127 H (74-99) mg/dL POC Glucose (mg/dL) (70-110) mg/dL Calcium 7.9 L (8.4-10.2) mg/dL Magnesium 1.5 L (1.6-2.3) mg/dL Assessment and Plan Assessment: (1) Acute on chronic diastolic (congestive) heart failure Current Visit: Yes Status: Acute Code(s): I50.33 - ACUTE ON CHRONIC DIASTOLIC (CONGESTIVE) HEART FAILURE SNOMED Code(s): 166484108 (2) COPD exacerbation Current Visit: Yes Status: Acute Code(s): J44.1 - CHRONIC OBSTRUCTIVE PULMON KELSIE DISEASE W (ACUTE) EXACERBATION SNOMED Code(s): 184591533 (3) Hypoxia Current Visit: Yes Status: Acute Code(s): R09.02 - HYPOXEMIA SNOMED Code(s): 896004855 (4) Acquired hypothyroidism Current Visit: No Status: Acute Code(s): E03.9 - HYPOTHYROIDISM, UNSPECIFIED SNOMED Code(s): 335107601 (5) Acute exacerbation of chronic obstructive pulmonary disease Current Visit: No Status: Acute Code(s): J44.1 - CHRONIC OBSTRUCTIVE PULM ONARY DISEASE W (ACUTE) EXACERBATION SNOMED Code(s): 675755381 (6) Acute pulmonary edema Current Visit: No Status: Acute Code(s): J81.0 - ACUTE PULMONARY EDEMA S NOMED Code(s): 27640449 (7) Acute renal failure secondary to medication induced including diuresing, subsequent hypotension Current Visit: No Status: Acute Code(s): N17.9 - ACUTE KIDNEY FAILURE, UNSPECIFIED SNOMED Code(s): 77539603 (8) Altered mental status, acute metabolic encephalopathy secondary to hypotension, acute renal failure, fluid overload, possible pneumonia Current Visit: No Status: Acute Code(s): R41.82 - ALTERED MENTAL STATUS, UNSPECIFIED SNOMED Code(s): 019578109 (9) CAD (coronary atherosclerotic disease) Current Visit: No Status: Acute Code(s): I25.10 - ATHSCL HEART DISEASE OF [place] CORONARY ARTERY W/O ANG PCTRS SNOMED Code(s): 925468300 (10) actively grieving, patient does of grandson and daughter as well as recent family diagnosed with cancer. (11) chronic back pain (12) paroxysmal atrial fibrillation (13) symptomatic anemia, status post 1 unit packed RBCs, iron deficient. Status post EGD reported antral gastritis. (14) hyperkalemia secondary to acute renal failure (15) possible right lower lobe pneumonia, pulmonary following (16) acute UTI with Klebsiella Plan: Continue on current medication regimen ,monitoring and symptomatic treatment. Bladder scanning for urinary retention-Hylton catheter removed. Magnesium supplementation in progress. Pending Colonoscopy-rescheduled for tomorrow. Continue avoiding all nephrotoxins. Close monitoring of CBC, renal function, electrolytes with repeat labs ordered for a.m. Discharge planning in progress tentatively for post colonoscopy. The impression and plan of care has been dictated as directed. : I performed a history and examination of this patient, discussed the same with the dictator. I agree with the dictator's note ,documented as a scribe. Any additional findings or plans will be noted.
[2022-04-12 17:03] LABS: Glucose,Whole Blood 137 mg/dL (70-110)
[2022-04-12] MEDS ORDERED: MIDODRINE 5 MG TAB PO PRN (17:28)
[2022-04-12 20:13] LABS: Glucose,Whole Blood 121 mg/dL (70-110)
[2022-04-12] MEDS: AMITRIPTYLINE HCL 50 MG TAB PO SCH (20:40)
[2022-04-12] MEDS: ATORVASTATIN 40 MG TAB PO SCH (20:41)
[2022-04-12] MEDS: METOPROLOL TARTRATE 25 MG TAB PO SCH (20:41)
[2022-04-13 06:12] LABS: Glucose,Whole Blood 141 mg/dL (70-110)
[2022-04-13] MEDS: LEVOTHYROXINE 50 MCG TAB PO SCH (06:32)
[2022-04-13] MEDS: AMIODARONE 200 MG TAB PO SCH ×2 (08:23→21:27)
[2022-04-13] MEDS: CYANOCOBALAMIN 500 MCG TAB PO SCH (08:23)
[2022-04-13] MEDS: GABAPENTIN 100 MG CAP PO SCH ×3 (08:23→21:28)
[2022-04-13] MEDS: CEFDINIR 300 MG CAP PO SCH ×2 (08:23→21:28)
[2022-04-13] MEDS: TAMSULOSIN 0.4 MG CAP.ER.24H PO SCH (08:23)
[2022-04-13] MEDS: FUROSEMIDE 40 MG TAB PO SCH (08:24)
[2022-04-13] MEDS: METOPROLOL TARTRATE 25 MG TAB PO SCH ×2 (08:24→21:28)
[2022-04-13] MEDS: SODIUM FERRIC GLUCONAT-SUCROSE 125 MG in SODIUM CHLORIDE 0.9% 100 ML IVPB SCH (08:41)
[2022-04-13] MEDS: SYMBICORT 80-4.5 MCG INHALER INHALATION SCH ×2 (09:02→19:51)
[2022-04-13] MEDS: IPRATROPIUM 0.5 MG/2.5 ML NEBU INHALATION SCH ×4 (09:03→19:50)
[2022-04-13 10:36] LABS: Anisocytosis Slight; HCT 28.6 % (34.0-46.0); HGB 8.6 gm/dL (11.4-16.0); Hypochromasia Marked; MCH 25.5 pg (25.0-35.0); MCHC 30.1 g/dL (31.0-37.0); MCV 84.8 fL (80.0-100.0); Platelet Count 560 k/uL (150-450); RBC 3.38 m/uL (3.80-5.40); RDW 17.5 % (11.5-15.5); WBC 6.6 k/uL (3.8-10.6)
[2022-04-13 10:37] LABS: Calcium 7.6 mg/dL (8.4-10.2); Magnesium 1.7 mg/dL (1.6-2.3); Potassium 3.4 mmol/L (3.5-5.1)
[2022-04-13 11:42] LABS: Glucose,Whole Blood 120 mg/dL (70-110)
--- NOTE | 2022-04-13 12:29 | P.PN ---
Subjective Patient is seen for follow-up for acute kidney injury on top of chronic kidney disease. Patient has been voiding on her own Renal function has improved significantly No complaints of nausea vomiting or diarrhea. Serum creatinine at 0.7 today Objective - Vital Signs Vital signs: Vital Signs Temp 98.3 F 04/13/22 08:18 Pulse 85 04/13/22 11:50 Resp 18 04/13/22 11:50 BP 149/66 04/13/22 11:50 Pulse Ox 93 L 04/13/22 11:50 FiO2 Intake & Output 04/12/22 04/13/22 04/13/22 18:59 06:59 18:59 Intake Total 358 Output Total 1150 550 Balance -792 -550 Weight 110 kg Intake: Oral 358 Output: Urine 1150 550 Straight 600 550 Other: Voiding Method Indwelling Catheter Diaper Diaper # Voids 1 # Bowel Movements 2 2 - Exam Awake, comfortable, not in any acute distress Examination of the heart S1 and S2 Examination lungs bilateral breath sounds are heard Abdomen is soft nontender obese Examination lower extremity shows trace edema bilaterally CERTIFIED MEDICAL ASSISTANT exam grossly intact - Labs CBC & Chem 7: 04/13/22 09:33 04/13/22 09:33 Labs: Abnormal Lab Results - Last 24 Hours (Table) 04/12/22 04/12/22 04/13/22 Range/Units 16:52 20:12 06:10 RBC (3.80-5.40) m/uL Hgb (11.4-16.0) gm/dL Hct (34.0-46.0) % MCHC (31.0-37.0) g/dL RDW (11.5-15.5) % Plt Count (150-450) k/uL Potassium (3.5-5.1) mmol/L BUN (7-17) mg/dL Glucose (74-99) mg/dL POC Glucose (mg/dL) 137 H 121 H 141 H (70-110) mg/dL Calcium (8.4-10.2) mg/dL 04/13/22 04/13/22 04/13/22 Range/Units 09:33 09:33 11:26 RBC 3.38 L (3.80-5.40) m/uL Hgb 8.6 L (11.4-16.0) gm/dL Hct 28.6 L (34.0-46.0) % MCHC 30.1 L (31.0-37.0) g/dL RDW 17.5 H (11.5-15.5) % Plt Count 560 H (150-450) k/uL Potassium 3.4 L (3.5-5.1) mmol/L BUN 6 L (7-17) mg/dL Glucose 125 H (74-99) mg/dL POC Glucose (mg/dL) 120 H (70-110) mg/dL Calcium 7.6 L (8.4-10.2) mg/dL Assessment and Plan Assessment: 1. Acute kidney injury secondary to hemodynamic ATN and possible urine retention. Renal function has improved significantly. Creatinine 0. 7 today. No hydronephrosis noted on kidney ultrasound. 2. Chronic kidney disease stage IIIa secondary to nephrosclerosis with baseline creatinine near 1.2. 3. A. fib with RVR on oral amiodarone and Lopressor. Cardiology following. 4. Chronic diastolic CHF. 5. Anemia of chronic kidney disease. Iron deficiency noted. Concern for GI bleed. Surgery following. EGD done 04/10/2022 showed antral gastritis. 6. Klebsiella UTI on antibiotics. 7. Hyponatremia. Hypervolemic. Improved with diuresis. 8. Hypomagnesemia from diuresis. Plan: Continue with oral Lasix Continue to monitor for urine retention DC midodrine.
--- NOTE | 2022-04-13 13:03 | P.PN ---
Subjective Progress Note Date: 04/13/22 On 04/10/2022, the patient is resting comfortably in bed on room air oxygen. She has COPD, valvular heart disease with moderate aortic stenosis and a component of CHF and coronary artery disease. The patient is also morbidly obese. The patient came in with a low hemoglobin and the patient was given blo od transfusion and the patient is going to undergo an EGD and colonoscopy today. The patient has no altered mentation. She is quite weak and I understood from the family that her baseline performance of function that school so poor. The patient otherwise has no complaint. Denies having any chest pain. Blood work from today shows a white count of 6.4 with hemoglobin of 8.7 and a platelet count of 564. The BUN is at 24 with a creatinine of 1.06 and a sodium levels of 138. On 04/11/2022, the patient is still on room air oxygen. Doing well. No specific complaints. Hemoglobin is stable at 8.2. The patient underwent EGD and colonoscopy yesterday and the patient was found to have antral gastritis on the EGD and colonoscopy was incomplete and needs to be redone. Otherwise, there has been no other significant events overnight. She is resting comfortably in bed on room air oxygen. Denies having any shortness of breath. Having clear liquid diet and popsicles. 04/12/2022, the patient is doing well. No specific complaints. The patient's has a hemoglobin of 8.7 which is essentially stable. EGD was completed. Colonoscopies to follow. No other issues for now. Her COPD is stable. She has a moderate degree of aortic stenosis. No signs of any decompensated heart failure. She remains on room air oxygen at this point in time. 04/13/2022, no change in the patient's condition and the patient is still awaiting her colonoscopy. The family is anxious at the bedside. Hemoglobin is stable. No GI bleeding. Objective - Vital Signs Vital signs: Vital Signs Temp 98.3 F 04/13/22 08:18 Pulse 85 04/13/22 11:50 Resp 18 04/13/22 11:50 BP 149/66 04/13/22 11:50 Pulse Ox 93 L 04/13/22 11:50 FiO2 Intake & Output 04/12/22 04/13/22 04/13/22 18:59 06:59 18:59 Intake Total 358 Output Total 4882 769 5907 Balance -792 -550 -1000 Weight 110 kg Intake: Oral 358 Output: Urine 3871 202 2591 Straight 600 550 500 Other: Voiding Method Indwelling Catheter Diaper Diaper # Voids 1 # Bowel Movements 2 2 - Exam No acute distress, oriented 3. No respiratory distress. The patient is on 2 L of oxygen. HEENT examination is grossly unremarkable. Neck supple. Full range of motion. No adenopathy thyromegaly or neck vein distention. Cardiovascular examination reveals regular rhythm rate. S1-S2 normal. No S3 or S4. CAMRYN 3/6 murmur noted. Heart sounds are distant. Lungs reveal mostly clear breath sounds. Minimal crackles at the bases. No wheezes. No rhonchi. Abdomen obese, with bowel sounds. No masses or tenderness. Extremities are intact. Minimal edema. No cyanosis or clubbing. Skin is without rash or lesion. Neurologic examination is brief but nonfocal. - Labs CBC & Chem 7: 04/13/22 09:33 04/13/22 09:33 Labs: Abnormal Lab Results - Last 24 Hours (Table) 04/12/22 04/12/22 04/13/22 Range/Units 16:52 20:12 06:10 RBC (3.80-5.40) m/uL Hgb (11.4-16.0) gm/dL Hct (34.0-46.0) % MCHC (31.0-37.0) g/dL RDW (11.5-15.5) % Plt Count (150-450) k/uL Potassium (3.5-5.1) mmol/L BUN (7-17) mg/dL Glucose (74-99) mg/dL POC Glucose (mg/dL) 137 H 121 H 141 H (70-110) mg/dL Calcium (8.4-10.2) mg/dL 04/13/22 04/13/22 04/13/22 Range/Units 09:33 09:33 11:26 RBC 3.38 L (3.80-5.40) m/uL Hgb 8.6 L (11.4-16.0) gm/dL Hct 28.6 L (34.0-46.0) % MCHC 30.1 L (31.0-37.0) g/dL RDW 17.5 H (11.5-15.5) % Plt Count 560 H (150-450) k/uL Potassium 3.4 L (3.5-5.1) mmol/L BUN 6 L (7-17) mg/dL Glucose 125 H (74-99) mg/dL POC Glucose (mg/dL) 120 H (70-110) mg/dL Calcium 7.6 L (8.4-10.2) mg/dL Assessment and Plan Plan: acute hypoxic respiratory failure, recovered and the patient is currently on room air oxygen, clinically stable Valvular heart disease with aortic valve stenosis and a preserved LV function Small right-sided pleural effusion acute on chronic anemia Shortness of breath, most likely secondary to fluid overload/CHF, complicated by worsening renal failure. A limited infiltrate/pneumonia, right lung base, cannot be excluded. History of COPD, from previous history of tobacco use. History of chronic diastolic CHF. CAD with previous stent placement. History of moderate aortic stenosis. History of CVA/TIA. History of diabetes mellitus. Morbid obesity. Hyperlipidemia. Hypertension. Hypothyroidism. Multiple other medical problems and comorbidities. Plan: Colonoscopy today Overall stable hemoglobin and 11 as of 8.7, current hemoglobin is 8.6 EGD showing antral gastritis, colonoscopy is to follow today Continue oral Lasix Continue oral amiodarone and the patient's cardiac rhythm is currently in sinus sinus with occasional PACs Continue beta blockers Continue Symbicort as maintenance for her COPD Continue Lipitor Poor Functional status Pulmonary care services will sign off the case
[2022-04-13] MEDS ORDERED: Potassium Replacement Protocol 1 EACH MISC MISCELLANE PRN (13:25)
[2022-04-13] MEDS ORDERED: IV FLUID CONTINUATION 500 ML IV ONE (13:36)
[2022-04-13 13:40] VITALS: BMI 43.0
--- NOTE | 2022-04-13 13:45 | P.OP ---
Date of Procedure: 04/13/22 Preoperative Diagnosis: Anemia Postoperative Diagnosis: Mild diverticulosis Hemorrhoids Procedure(s) Performed: Colonoscopy Anesthesia: MAC Surgeon: Vinny Head Pathology: none sent Condition: stable Disposition: PACU Description of Procedure: The patient's placed on the endoscopy table in the lateral position. He IV sedation. Digital rectal exam was performed which revealed external and internal hemorrhoids. The flexible colonoscope was then placed patient anus and passed throughout the colon. Ileocecal valve was not visualized secondary tortuosity valve. Several times made to maneuver the scope into the cecum there was some possible. Scope was then withdrawn. The right colon that was visualized. Normal. The transverse colon appeared normal. In the descending; there is mild diverticular changes. The scope was brought back the rectum this appeared normal. Scope withdrawn through the anus and hemorrhoids are noted. There is no evidence of any GI bleed. Presumed patient may have had some bleeding from hemorrhoids were diverticular disease.
[2022-04-13] MEDS: POTASSIUM CHLORIDE ER 20 MEQ TAB.ER PO SCH ×2 (14:42→15:17)
[2022-04-13] MEDS: HYDROcodone/APAP 5-325MG 1 EACH TAB PO PRN ×2 (15:17→21:28)
[2022-04-13] MEDS ORDERED: Magnesium Replacement Protocol 1 EACH MISC MISCELLANE PRN (16:29)
--- NOTE | 2022-04-13 16:34 | P.PN ---
Subjective Progress Note Date: 04/13/22 Chief Complaint: Shortness of breath dyspnea (This is a 86-year-old female well-known to my practice with past medical history of COPD CHF monitor aortic stenosis coronary artery disease presented to the emergency department with shortness of breath. Patient was recently hosp[facility] states that she has worsening shortness of breath or past several days, the dyspnea became clearly worse at 3 AM she took 3 of her nebulizer treatments without any improvement she does not wear oxygen at home upon EMS arrival O2 sats were in the mid 80s with increased work of breathing. Placed on nonrebreather denies fever chills or cough has been taking Lasix daily without missing any doses and Mr. worsening lower extremity edema patient was not on antibiotics or steroids no other alleviating or precipitating factors however patient does have chronic anemia as well.) 04/03/2022 Evaluated by cardiology. Bilateral lower extremity edema at baseline. Diuretics transitioned to oral as per cardiology. Renal function improving. Actively grieving, reports recent loss of grandson and daughter, as well as another family member recently diagnosed with cancer. Denies chest pain, palpit ations or increased shortness of breath. Maintaining O2 sats in the 90s on 2 L nasal cannula. 04/05/2022 hypotensive during the night, systolic blood pressure dropped as low mid 70s required IV fluid bolus. Increased weakness, fatigued. This morning creatinine significantly worsened, BUN jumped to 57, creatinine increased to 3.49. Metformin and KAE inhibitor discontinued. Lasix held. Currently requiring 3 L nasal cannula to maintain O2 sats in the low 90s. ABGs noted. Chest x-ray reporting bilateral infiltrate and small right effusion, correlate for CHF, otherwise consider pneumonia. 04/06/22 continued hypotension, last night, received additional IV fluids. Worsening renal function this morning, BUN 63, creatinine 4.16. Pro-calcitonin elevated 0.43, maintained on IV antibiotics of Rocephin. T-max 99.6, WBC 13. Stool for occult blood negative, Hemoglobin 8.3, platelets 410. Sodium 127, potassium 5.7. More alert today. Denies chest pain, palpitations. 04/11/2022 underwent EGD reporting antral gastritis, colonoscopy unable to be performed secondary to poor bowel prep. Hemoglobin 8.2, iron 580, receiving IV iron. Renal function significantly improved. Feels better. Telemetry sinus rhythm, maintained on oral amiodarone and beta dejan, diuresed on oral Lasix. Continues on cefdnir for Klebsiella UTI. 04/12/2022 yesterday morning converted to sinus rhythm with Cardizem drip discontinued.No overnight events. Receiving supplementation for magnesium of 1.5. Colonoscopy pending-scheduled for tomorrow. Denies chest pain, palpitations or increasing shortness of breath. Maintaining O2 sats in the 90s on room air. BUN 10, creatinine 0.93. Blood sugars controlled. 04/13/2022 NPO, Scheduled for Colonscopy this afternoon. Vital signs stable, maintaining O2 sats in the 90s on room air. Hemoglobin 8.6, platelets 560, renal function stable. Blood sugars controlled Authorization for subacute rehab. in progress. Potassium 3.4, magnesium 1.7. Hemoglobin A1c 6.1. Objective - Vital Signs Vital signs: Vital Signs Temp 98.1 F 04/13/22 15:15 Pulse 86 04/13/22 15:15 Resp 20 04/13/22 15:15 BP 149/67 04/13/22 15:15 Pulse Ox 94 L 04/13/22 15:15 FiO2 Intake & Output 04/12/22 04/13/22 04/13/22 18:59 06:59 18:59 Intake Total 358 100 Output Total 5715 897 0846 Balance -792 -550 -900 Weight 110 kg 110 kg Intake: IV 100 Oral 358 Output: Urine 5135 522 8871 Straight 600 550 500 Other: Voiding Method Indwelling Catheter Diaper Indwelling Catheter # Voids 1 # Bowel Movements 2 2 - Exam - Exam General: [Patient alert and oriented times 3. NAD HEENT: [PERRL. Pale conjunctiva,EOMI.MMM. Neck: Supple, no JVD Cardiac: [Heart regularly irregular No S3. No S4. No clicks, rubs. Grade 2 aortic murmur Lungs: No rhonchi, fine bibasilar crackles Abdomen: [Soft, No mass. No organomegaly. Bowel sounds presnt and normoactive in all 4 quadrants.] Extremes: Minimal edema bilateral lower extremities at baseline, no cyanosis no claudication normal pulses] Skin: [Warm and dry, No rash.] - Labs CBC & Chem 7: 04/13/22 09:33 04/13/22 09:33 Labs: Abnormal Lab Results - Last 24 Hours (Table) 04/12/22 04/12/22 04/13/22 Range/Units 16:52 20:12 06:10 RBC (3.80-5.40) m/uL Hgb (11.4-16.0) gm/dL Hct (34.0-46.0) % MCHC (31.0-37.0) g/dL RDW (11.5-15.5) % Plt Count (150-450) k/uL Potassium (3.5-5.1) mmol/L BUN (7-17) mg/dL Glucose (74-99) mg/dL POC Glucose (mg/dL) 137 H 121 H 141 H (70-110) mg/dL Hemoglobin A1c (0.0-6.0) % Calcium (8.4-10.2) mg/dL 04/13/22 04/13/22 04/13/22 Range/Units 09:33 09:33 09:33 RBC 3.38 L (3.80-5.40) m/uL Hgb 8.6 L (11.4-16.0) gm/dL Hct 28.6 L (34.0-46.0) % MCHC 30.1 L (31.0-37.0) g/dL RDW 17.5 H (11.5-15.5) % Plt Count 560 H (150-450) k/uL Potassium 3.4 L (3.5-5.1) mmol/L BUN 6 L (7-17) mg/dL Glucose 125 H (74-99) mg/dL POC Glucose (mg/dL) (70-110) mg/dL Hemoglobin A1c 6.1 H (0.0-6.0) % Calcium 7.6 L (8.4-10.2) mg/dL 04/13/22 Range/Units 11:26 RBC (3.80-5.40) m/uL Hgb (11.4-16.0) gm/dL Hct (34.0-46.0) % MCHC (31.0-37.0) g/dL RDW (11.5-15.5) % Plt Count (150-450) k/uL Potassium (3.5-5.1) mmol/L BUN (7-17) mg/dL Glucose (74-99) mg/dL POC Glucose (mg/dL) 120 H (70-110) mg/dL Hemoglobin A1c (0.0-6.0) % Calcium (8.4-10.2) mg/dL Assessment and Plan Assessment: (1) Acute on chronic diastolic (congestive) heart failure Current Visit: Yes Status: Acute Code(s): I50.33 - ACUTE ON CHRONIC DIASTOLIC (CONGESTIVE) HEART FAILURE SNOMED Code(s): 232260894 (2) COPD exacerbation Current Visit: Yes Status: Acute Code(s): J44.1 - CHRONIC OBSTRUCTIVE PULMONARY DISEASE W (ACUTE) EXACERBATION SNOMED Code(s): 994754344 (3) Hypoxia Current Visit: Yes Status: Acute Code(s): R09.02 - HYPOXEMIA SNOMED Code(s): 790605657 (4) Acquired hypothyroidism Current Visit: No Status: Acute Code(s): E03.9 - HYPOTHYROIDISM, UNSPECIFIED SNOMED Code(s): 685296792 (5) Acute exacerbation of chronic obstructive pulmonary disease Current Visit: No Status: Acute Code(s): J44.1 - CHRONIC OBSTRUCTIVE PULMONARY DISEASE W (ACUTE) EXACERBATION SNOMED Code(s): 325475186 (6) Acute pulmonary edema Current Visit: No Status: Acute Code(s): J81.0 - ACUTE PULMONARY EDEMA SNOMED Code(s): 11989333 (7) Acute renal failure secondary to medication induced including diuresing, subsequent hypotension Current Visit: No Status: Acute Code(s): N17.9 - ACUTE KIDNEY FAILURE, UNSPECIFIED SNOMED Code(s): 19029141 (8) Altered mental status, acute metabolic encephalopathy secondary to hypotension, acute renal failure, fluid overload, possible pneumonia Current Visit: No Status: Acute Code(s): R41.82 - ALTERED MENTAL STATUS, UNSPECIFIED SNOMED Code(s): 826941906 (9) CAD (coronary atherosclerotic disease) Current Visit: No Status: Acute Code(s): I25.10 - ATHSCL HEART DISEASE OF [place] CORONARY ARTERY W/O ANG PCTRS SNOMED Code(s): 743169937 (10) actively grieving, patient does of grandson and daughter as well as recent family diagnosed with cancer. (11) chronic back pain (12) paroxysmal atrial fibrillation (13) symptomatic anemia, status post 1 unit packed RBCs, iron deficient. Status post EGD reported antral gastritis. (14) hyperkalemia secondary to acute renal failure (15) possible right lower lobe pneumonia, pulmonary following (16) acute UTI with Klebsiella Plan: Continue on current medication regimen ,monitoring and symptomatic treatment. Maintain Bladder scanning post dc of gibson cath. Potassium and Magnesium supplementation ordered.Pending Colonoscopy. Continue avoiding all nephrotoxins. Close monitoring of CBC, renal function, electrolytes with repeat labs ordered for a.m. Discharge planning in progress for tomorrow to subacute rehab pending authorization. The impression and plan of care has been dictated as directed. : I performed a history and examination of this patient, discussed the same with the dictator. I agree with the dictator's note ,documented as a scribe. Any additional findings or plans will be noted.
[2022-04-13 16:58] LABS: Glucose,Whole Blood 130 mg/dL (70-110)
[2022-04-13 20:06] LABS: Glucose,Whole Blood 129 mg/dL (70-110)
[2022-04-13] MEDS: AMITRIPTYLINE HCL 50 MG TAB PO SCH (21:28)
[2022-04-13] MEDS: ATORVASTATIN 40 MG TAB PO SCH (21:28)
[2022-04-14 05:57] LABS: Glucose,Whole Blood 114 mg/dL (70-110)
[2022-04-14] MEDS: LEVOTHYROXINE 50 MCG TAB PO SCH (06:33)
[2022-04-14] MEDS: HYDROcodone/APAP 5-325MG 1 EACH TAB PO PRN (06:33)
[2022-04-14 06:59] VITALS: RESP 18
[2022-04-14] MEDS ORDERED: LACTATED RINGERS 1,000 ML IV SCH (08:08)
[2022-04-14] MEDS: IPRATROPIUM 0.5 MG/2.5 ML NEBU INHALATION SCH ×2 (08:16→12:01)
[2022-04-14] MEDS: SYMBICORT 80-4.5 MCG INHALER INHALATION SCH (08:16)
[2022-04-14] MEDS: AMIODARONE 200 MG TAB PO SCH (09:51)
[2022-04-14] MEDS: FUROSEMIDE 40 MG TAB PO SCH (09:52)
[2022-04-14] MEDS: TAMSULOSIN 0.4 MG CAP.ER.24H PO SCH (09:52)
[2022-04-14] MEDS: GABAPENTIN 100 MG CAP PO SCH ×2 (09:52→14:01)
[2022-04-14] MEDS: SODIUM FERRIC GLUCONAT-SUCROSE 125 MG in SODIUM CHLORIDE 0.9% 100 ML IVPB SCH (09:52)
[2022-04-14] MEDS: CYANOCOBALAMIN 500 MCG TAB PO SCH (09:52)
[2022-04-14] MEDS: CEFDINIR 300 MG CAP PO SCH (09:52)
--- NOTE | 2022-04-14 10:02 | P.DS ---
Providers Date of admission: 03/31/22 20:28 Expected date of discharge: 04/14/22 Attending physician: Phan Hartman Consults: 03/31/22 20:28 Consult Physician Urgent Consulting Provider: [facility] Consult Reason/Comments: acute chf exacerbation Do you want consulting provider notified?: Yes 04/05/22 10:00 Consult Physician Urgent Consulting Provider: Neelam Underwood Consult Reason/Comments: TORY Do you want consulting provider notified?: Yes 04/05/22 14:04 Consult Physician Urgent Consulting Provider: Geo Peres Consult Reason/Comments: possible pneumonia/early infiltrate Do you want consulting provider notified?: Yes 04/07/22 16:02 Consult Physician Routine Consulting Provider: Vinny Head Consult Reason/Comments: anemia possible GIB Do you want consulting provider notified?: Yes 04/08/22 13:06 Consult Physician Urgent Consulting Provider: Franklin Case Consult Reason/Comments: cardiac rhythm change Do you want consulting provider notified?: Yes Primary care physician: [facility] Course: Final Diagnoses: (1) Acute on chronic diastolic (congestive) heart failure Current Visit: Yes Status: Acute Code(s): I50.33 - ACUTE ON CHRONIC DIASTOLIC (CONGESTIVE) HEART FAILURE SNOMED Code(s): 297144008 (2) COPD exacerbation Current Visit: Yes Status: Acute Code(s): J44.1 - CHRONIC OBSTRUCTIVE PULMONARY DISEASE W (ACUTE) EXACERBATION SNOMED Code(s): 530016714 (3) Hypoxia Current Visit: Yes Status: Acute Code(s): R09.02 - HYPOXEMIA SNOMED Code(s): 597078672 (4) Acquired hypothyroidism Current Visit: No Status: Acute Code(s): E03.9 - HYPOTHYROIDISM, UNSPECIFIED SNOMED Code(s): 432916233 (5) Acute exacerbation of chronic obstructive pulmonary disease Current Visit: No Status: Acute Code(s): J44.1 - CHRONIC OBSTRUCTIVE PULMONARY DISEASE W (ACUTE) EXACERBATION SNOMED Code(s): 423952451 (6) Acute pulmonary edema Current Visit: No Status: Acute Code(s): J81.0 - ACUTE PULMONARY EDEMA SNOMED Code(s): 80770487 (7) Acute renal failure secondary to medication induced including diuresing, subsequent hypotension Current Visit: No Status: Acute Code(s): N17.9 - ACUTE KIDNEY FAILURE, UNSP ECIFIED SNOMED Code(s): 51983239 (8) Altered mental status, acute metabolic encephalopathy secondary to hypotension, acute renal failure, fluid overload, possible pneumonia Current Visit: No Status: Acute Code(s): R41.82 - ALTERED MENTAL STATUS, UNSPECIFIED SNOMED Code(s): 504447495 (9) CAD (coronary atherosclerotic disease) Current Visit: No Status: Acute Code(s): I25.10 - ATHSCL HEART DISEASE OF [place] CORONARY ARTERY W/O ANG PCTRS SNOMED Code(s): 975806472 (10) actively grieving, patient does of grandson and daughter as well as recent family diagnosed with cancer. (11) chronic back pain (12) paroxysmal atrial fibrillation (13) symptomatic anemia, status post 1 unit packed RBCs, iron deficient. Status post EGD reported antral gastritis. (14) hyperkalemia secondary to acute renal failure (15) possible right lower lobe pneumonia, pulmonary following (16) acute UTI with Klebsiella Hospital course:(This is a 86-year-old female well-known to my practice with past medical history of COPD CHF monitor aortic stenosis coronary artery disease presented to the emergency department with shortness of breath. Patient was recently hospitalized states that she has worsening shortness of breath or past several days, the dyspnea became clearly worse at 3 AM she took 3 of her nebulizer treatments without any improvement she does not wear oxygen at home upon EMS arrival O2 sats were in the mid 80s with increased work of breathing. Placed on nonrebreather denies fever chills or cough has been taking Lasix daily without missing any doses and Mr. worsening lower extremity edema patient was not on antibiotics or steroids no other alleviating or precipitating factors however patient does have chronic anemia as well.) 04/03/2022 Evaluated by cardiology. Bilateral lower extremity edema at baseline. Diuretics transitioned to oral as per cardiology. Renal function improving. Actively grieving, reports recent loss of grandson and daughter, as well as another family member recently diagnosed with cancer. Denies chest pain, palpitations or increased shortness of breath. Maintaining O2 sats in the 90s on 2 L nasal cannula. 04/05/2022 hypotensive during the night, systolic blood pressure dropped as low mid 70s required IV fluid bolus. Increased weakness, fatigued. This morning creatinine significantly worsened, BUN jumped to 57, creatinine increased to 3.49. Metformin and KAE inhibitor discontinued. Lasix held. Currently requiring 3 L nasal cannula to maintain O2 sats in the low 90s. ABGs noted. Chest x-ray reporting bilateral infiltrate and small right effusion, correlate for CHF, otherwise consider pneumonia. 04/06/22 continued hypotension, last night, received additional IV fluids. Worsening renal function this morning, BUN 63, creatinine 4.16. Pro-calcitonin elevated 0.43, maintained on IV antibiotics of Rocephin. T-max 99.6, WBC 13. Stool for occult blood negative, Hemoglobin 8.3, platelets 410. Sodium 127, potassium 5.7. More alert today. Denies chest pain, palpitations. 04/11/2022 underwent EGD reporting antral gastritis, colonoscopy unable to be pe rformed secondary to poor bowel prep. Hemoglobin 8.2, iron 580, receiving IV iron. Renal function significantly improved. Feels better. Telemetry sinus rhythm, maintained on oral amiodarone and beta dejan, diuresed on oral Lasix. Continues on cefdnir for Klebsiella UTI. 04/12/2022 yesterday morning converted to sinus rhythm with Cardizem drip discontinued.No overnight events. Receiving supplementation for magnesium of 1.5. Colonoscopy pending-scheduled for tomorrow. Denies chest pain, palpitations or increasing shortness of breath. Maintaining O2 sats in the 90s on room air. BUN 10, creatinine 0.93. Blood sugars controlled. 04/13/2022 NPO, Scheduled for Colonscopy this afternoon. Vital signs stable, maintaining O2 sats in the 90s on room air. Hemoglobin 8.6, platelets 560, renal function stable. Blood sugars controlled Authorization for subacute rehab. in progress. Potassium 3.4, magnesium 1.7. Hemoglobin A1c 6.1. Completed colonoscopy reporting no evidence of GI bleed, suspected bleeding from hemorrhoids and possibly diverticular disease per surgery. Labs pending this morning, currently receiving magnesium IV supplementation. Significant clinical improvement. Patient will be discharged to subacute rehab today in a stable condition with guarded prognosis pending clearance from surgery to resume anticoagulation, amiodarone taper per cardiology. Recommending bladder scanning every shift to continue monitoring for urinary retention. The impression and plan of care has been dictated as directed. : I performed a history and examination of this patient, discussed the same with the dictator. I agree with the dictator's note ,documented as a scribe. Any additional findings or plans will be noted. Patient Condition at Discharge: Stable Plan - Discharge Summary Discharge Rx Participant: No New Discharge Prescriptions: New Tamsulosin [Flomax] 0.4 mg PO PC-BRKFST cap Furosemide [Lasix] 40 mg PO DAILY tab Cefdinir [Omnicef] 300 mg PO Q12HR 5 Days #10 cap INSULIN LISPRO (HumaLOG) [humaLOG] 0 unit SQ ACHS #10 ml Metoprolol Tartrate [Lopressor] 25 mg PO BID tab Calcium Carbonate [Tums] 1,000 mg PO QID PRN tab PRN Reason: Heartburn Continue Nitroglycerin Sl Tabs [Nitrostat] 0.4 mg SL Q5M PRN PRN Reason: Chest Pain Atorvastatin Calcium [Lipitor] 40 mg PO HS #1 tab Levothyroxine Sodium [Synthroid] 50 mcg PO AC-BRKFST Cyanocobalamin [Vitamin B-12 Injection] 1,000 mcg SQ Q30D Albuterol Nebulized [Ventolin Nebulized] 2.5 mg INHALATION RT-QID PRN PRN Reason: Shortness Of Breath Fluticasone/Umeclidin/Vilanter [Trelegy Ellipta 100-62.5-25] 1 puff INHALATION RT-HS Amitriptyline HCl [Elavil] 100 mg PO HS Apixaban [Eliquis] 2.5 mg PO BID Gloria Root 550mg 1 tab PO DAILY Cyanocobalamin (Vitamin B-12) [Vitamin B-12] 1,000 mcg PO DAILY Gabapentin 300 mg PO TID #9 cap Changed HYDROcodone/APAP 5-325MG [[place] 5-325] 1 tab PO TID PRN #9 tab PRN Reason: Pain Discontinued Metoprolol Tartrate [Lopressor] 50 mg PO BID #0 Pioglitazone [Actos] 30 mg PO DAILY metFORMIN HCL 1,000 mg PO BID@1800,2100 Furosemide [Lasix] 40 mg PO DAILY Empagliflozin [Jardiance] 10 mg PO DAILY lisinopriL [Zestril] 10 mg PO BID Discharge Medication List Nitroglycerin Sl Tabs [Nitrostat] 0.4 mg SL Q5M PRN 07/20/15 [History] Atorvastatin Calcium [Lipitor] 40 mg PO HS #1 tab 08/04/15 [Rx] Cyanocobalamin [Vitamin B-12 Injection] 1,000 mcg SQ Q30D 07/06/19 [History] Levothyroxine Sodium [Synthroid] 50 mcg PO AC-BRKFST 07/06/19 [History] Albuterol Nebulized [Ventolin Nebulized] 2.5 mg INHALATION RT-QID PRN 02/19/20 [History] Fluticasone/Umeclidin/Vilanter [Trelegy Ellipta 100-62.5-25] 1 puff INHALATION RT-HS 10/15/21 [History] Apixaban [Eliquis] 2.5 mg PO BID 12/09/21 [History] Amitriptyline HCl [Elavil] 100 mg PO HS 03/13/22 [History] Cyanocobalamin (Vitamin B-12) [Vitamin B-12] 1,000 mcg PO DAILY 03/13/22 [History] Gloria Root 550mg 1 tab PO DAILY 03/13/22 [History] Gabapentin 300 mg PO TID #9 cap 04/04/22 [Rx] Calcium Carbonate [Tums] 1,000 mg PO QID PRN tab 04/13/22 [Rx] Cefdinir [Omnicef] 300 mg PO Q12HR 5 Days #10 cap 04/13/22 [Rx] Furosemide [Lasix] 40 mg PO DAILY tab 04/13/22 [Rx] HYDROcodone/APAP 5-325MG [[place] 5-325] 1 tab PO TID PRN #9 tab 04/13/22 [Rx] INSULIN LISPRO (HumaLOG) [humaLOG] 0 unit SQ ACHS #10 ml 04/13/22 [Rx] Tamsulosin [Flomax] 0.4 mg PO PC-BRKFST cap 04/13/22 [Rx] Metoprolol Tartrate [Lopressor] 25 mg PO BID tab 04/14/22 [Rx] Follow up Appointment(s)/Referral(s): Franklin Case MD [STAFF PHYSICIAN] - 2 Weeks Phan Hartman Jr, DO [Primary Care Provider] - 1-2 days Ying Bashir [NON-STAFF] - As Needed Activity/Diet/Wound Care/Special Instructions: [place] ANU: amiodarone taper as per cardiology CBC, BMP in 3 days Diet COnsist. carb Discharge Disposition: TRANSFER TO SNF/ECF
[2022-04-14 10:30] LABS: Anisocytosis Slight; HCT 26.7 % (34.0-46.0); Hypochromasia Marked; MCH 25.6 pg (25.0-35.0); MCV 85.2 fL (80.0-100.0); Mean Platelet Volume 8.3; Platelet Count 551 k/uL (150-450); RBC 3.14 m/uL (3.80-5.40); WBC 8.3 k/uL (3.8-10.6)
[2022-04-14] MEDS ORDERED: MAGNESIUM SULFATE-D5W PMX 1 GM in DEXTROSE/WATER 1 100ML.BAG IVPB ONE (10:30)
--- NOTE | 2022-04-14 10:37 | P.PN ---
Subjective Patient is seen in follow-up for acute kidney injury on chronic kidney disease. Renal function improved. Good urine output. No vomiting or diarrhea. No active complaints. Hylton catheter had to be reinserted due to retention. Colonoscopy done yesterday showed no evidence of acute bleed. Vital signs are stable. General: Awake. No acute distress. HEENT: Head exam is unremarkable. LUNGS: Breath sounds decreased. HEART: Rate and Rhythm are regular. ABDOMEN: Soft, no distention. EXTREMITITES: No edema. Objective - Vital Signs Vital signs: Vital Signs Temp 98.7 F 04/14/22 04:00 Pulse 94 04/14/22 04:00 Resp 18 04/14/22 04:00 BP 139/53 04/14/22 04:00 Pulse Ox 94 L 04/14/22 04:00 FiO2 Intake & Output 04/13/22 04/14/22 04/14/22 18:59 06:59 18:59 Intake Total 640 118 Output Total 1000 400 Balance -360 -400 118 Weight 110 kg Intake: IV 100 Oral 540 118 Output: Urine 1000 400 Straight 500 Stool 0 Other: Voiding Method Indwelling Catheter Indwelling Catheter # Voids 1 - Labs CBC & Chem 7: 04/14/22 08:42 04/13/22 09:33 Labs: Abnormal Lab Results - Last 24 Hours (Table) 04/13/22 04/13/22 04/13/22 Range/Units 09:33 09:33 09:33 RBC 3.38 L (3.80-5.40) m/uL Hgb 8.6 L (11.4-16.0) gm/dL Hct 28.6 L (34.0-46.0) % MCHC 30.1 L (31.0-37.0) g/dL RDW 17.5 H (11.5-15.5) % Plt Count 560 H (150-450) k/uL Potassium 3.4 L (3.5-5.1) mmol/L BUN 6 L (7-17) mg/dL Glucose 125 H (74-99) mg/dL POC Glucose (mg/dL) (70-110) mg/dL Hemoglobin A1c 6.1 H (0.0-6.0) % Calcium 7.6 L (8.4-10.2) mg/dL 04/13/22 04/13/2204/13/22 Range/Units 11:26 16:46 20:04 RBC (3.80-5.40) m/uL Hgb (11.4-16.0) gm/dL Hct (34.0-46.0) % MCHC (31.0-37.0) g/dL RDW (11.5-15.5) % Plt Count (150-450) k/uL Potassium (3.5-5.1) mmol/L BUN (7-17) mg/dL Glucose (74-99) mg/dL POC Glucose (mg/dL) 120 H 130 H 129 H (70-110) mg/dL Hemoglobin A1c (0.0-6.0) % Calcium (8.4-10.2) mg/dL 04/14/22 04/14/22 Range/Units 05:55 08:42 RBC 3.14 L (3.80-5.40) m/uL Hgb 8.0 L (11.4-16.0) gm/dL Hct 26.7 L (34.0-46.0) % MCHC 30.0 L (31.0-37.0) g/dL RDW 18.0 H (11.5-15.5) % Plt Count 551 H (150-450) k/uL Potassium (3.5-5.1) mmol/L BUN (7-17) mg/dL Glucose (74-99) mg/dL POC Glucose (mg/dL) 114 H (70-110) mg/dL Hemoglobin A1c (0.0-6.0) % Calcium (8.4-10.2) mg/dL Assessment and Plan Plan: Assessment: 1. Acute kidney injury secondary to hemodynamic ATN. Renal function improved. GFR back to baseline. No hydronephrosis noted on kidney ultrasound. 2. Chronic kidney disease stage IIIa secondary to nephrosclerosis with baseline creatinine near 1.2. 3. A. fib with RVR on oral amiodarone and Lopressor. Cardiology following. 4. Chronic diastolic CHF. 5. Anemia of chronic kidney disease. Iron deficiency noted. Concern for GI bleed. Surgery following. EGD done 04/10/2022 showed antral gastritis. No acute bleed noted on colonoscopy done 04/13/2022. 6. Klebsiella UTI on antibiotics. 7. Hyponatremia. Hypervolemic. Improved with diuresis. 8. Hypomagnesemia from diuresis. 9. Hypokalemia from diuresis. Replaced. 10. Urinary retention. Hylton catheter reinserted. On Flomax. Plan: Maintain oral Lasix. s/p IV iron. Magnesium being replaced. Avoid nephrotoxins. Continue to monitor renal function and urine output. Maintain Flomax. Add maintenance potassium and magnesium supplementation. Follow up outpatient 1-2 weeks postdischarge. Patient will also need to follow- up with urology outpatient for urinary retention. Repeat BMP and magnesium level 2-3 days postdischarge.
[2022-04-14] MEDS: METOPROLOL TARTRATE 25 MG TAB PO SCH (11:14)
[2022-04-14 11:30] LABS: Calcium 7.9 mg/dL (8.4-10.2)
[2022-04-14 12:15] VITALS: PULSE 80
--- NOTE | 2022-04-14 13:25 | P.PN ---
Subjective Progress Note Date: 04/14/22 CHIEF COMPLAINT: Anemia HISTORY OF PRESENT ILLNESS: Patient is status post EGD. EGD had revealed gastritis. Patient is status post colonoscopy with results showing mild diverticulosis and hemorrhoids. There is no evidence of any GI bleed. Presumed patient may have had some bleeding from hemorrhoids and diverticular disease. Patient has had no further bleeding. She's tolerating diet. She denies any abdominal pain. Hemoglobin stable at 8 Patient seen and examined with Dr. Head PHYSICAL EXAM: VITAL SIGNS: Reviewed. GENERAL: Well-developed in no acute distress. HEENT: No sclera icterus. Extraocular movements grossly intact. Moist buccal mucosa. Head is atraumatic, normocephalic. ABDOMEN: Soft. Nondistended. Nontender. NEUROLOGIC: Awake and alert ASSESSMENT: 1. Anemia 2. Status post EGD revealing antral gastritis. Colonoscopy not completed due to poor bowel prep PLAN: -Patient is stable for discharge from surgical standpoint -Okay to resume [facility] surgical standpoint -Continue PPI Physician [employer] Di[employer] note has been reviewed by physician. Signing provider agrees with the documented findings, assessment, and plan of care. Objective - Vital Signs Vital signs: Vital Signs Temp 98.7 F 04/14/22 04:00 Pulse 80 04/14/22 12:13 Resp 18 04/14/22 04:00 BP 139/53 04/14/22 04:00 Pulse Ox 94 L 04/14/22 04:00 FiO2 Intake & Output 04/13/22 04/14/22 04/14/22 18:59 06:59 18:59 Intake Total 640 118 Output Total 1000 400 300 Balance -360 -400 -182 Weight 110 kg Intake: IV 100 Oral 540 118 Output: Urine 1000 400 300 Straight 500 Stool 0 Other: Voiding Method Indwelling Catheter Indwelling Catheter # Voids 1 - Labs CBC & Chem 7: 04/14/22 08:42 04/14/22 08:42 Labs: Abnormal Lab Results - Last 24 Hours (Table) 04/13/22 04/13/22 04/13/22 Range/Units 09:33 16:46 20:04 RBC (3.80-5.40) m/uL Hgb (11.4-16.0) gm/dL Hct (34.0-46.0) % MCHC (31.0-37.0) g/dL RDW (11.5-15.5) % Plt Count (150-450) k/uL Sodium (137-145) mmol/L BUN (7-17) mg/dL Glucose (74-99) mg/dL POC Glucose (mg/dL) 130 H 129 H (70-110) mg/dL Hemoglobin A1c 6.1 H (0.0-6.0) % Calcium (8.4-10.2) mg/dL 04/14/22 04/14/22 04/14/22 Range/Units 05:55 08:42 08:42 RBC 3.14 L (3.80-5.40) m/uL Hgb 8.0 L (11.4-16.0) gm/dL Hct 26.7 L (34.0-46.0) % MCHC 30.0 L (31.0-37.0) g/dL RDW 18.0 H (11.5-15.5) % Plt Count 551 H (150-450) k/uL Sodium 136 L (137-145) mmol/L BUN 6 L (7-17) mg/dL Glucose 110 H (74-99) mg/dL POC Glucose (mg/dL) 114 H (70-110) mg/dL Hemoglobin A1c (0.0-6.0) % Calcium 7.9 L (8.4-10.2) mg/dL
[2022-04-14 13:55] VITALS: BP 156/66; TEMP 98.2
[2022-04-15] MEDS ORDERED: POTASSIUM CHLORIDE ER 10 MEQ TAB.ER.PRT PO SCH (09:00)
[2022-04-15] MEDS ORDERED: MAGNESIUM OXIDE 400 MG TAB PO SCH (09:00)
[2022-04-15] MEDS ORDERED: AMIODARONE 200 MG TAB PO SCH (09:00)
== END 2022-04-14 14:43 | DRG 291 ==
LOC: EC 17:04 → 4SSUR 20:28 → 3SCARD 04-08 17:09
PROVIDERS: ADMIT Family Medicine; ATTEND Family Medicine
PROC: 0DB78ZX Excision of Stomach, Pylorus, Via Natural or Artificial Opening Endoscopic, Diagnostic (ICD-10-PCS; principal; 2022-03-31)
PROC: 30233N1 Transfusion of Nonautologous Red Blood Cells into Peripheral Vein, Percutaneous Approach (ICD-10-PCS; 2022-04-01)
PROC: 05HC33Z Insertion of Infusion Device into Left Basilic Vein, Percutaneous Approach (ICD-10-PCS; 2022-04-07)
PROC: 0DJD8ZZ Inspection of Lower Intestinal Tract, Via Natural or Artificial Opening Endoscopic (ICD-10-PCS; 2022-04-13)
DX: I13.0 Hypertensive heart and chronic kidney disease with heart failure and stage 1 through stage 4 chronic kidney disease, or unspecified chronic kidney disease (principal); G93.41 Metabolic encephalopathy; I50.33 Acute on chronic diastolic (congestive) heart failure; J18.9 Pneumonia, unspecified organism; J96.01 Acute respiratory failure with hypoxia; N17.0 Acute kidney failure with tubular necrosis; Z68.41 Body mass index [BMI] 40.0-44.9, adult; E87.1 Hypo-osmolality and hyponatremia; J44.0 Chronic obstructive pulmonary disease with (acute) lower respiratory infection; J44.1 Chronic obstructive pulmonary disease with (acute) exacerbation; N39.0 Urinary tract infection, site not specified; G89.29 Other chronic pain; G47.33 Obstructive sleep apnea (adult) (pediatric); B96.1 Klebsiella pneumoniae [K. pneumoniae] as the cause of diseases classified elsewhere; B96.89 Other specified bacterial agents as the cause of diseases classified elsewhere; D63.1 Anemia in chronic kidney disease; E03.9 Hypothyroidism, unspecified; I95.9 Hypotension, unspecified; E11.22 Type 2 diabetes mellitus with diabetic chronic kidney disease; D50.9 Iron deficiency anemia, unspecified; I35.0 Nonrheumatic aortic (valve) stenosis; Z79.01 Long term (current) use of anticoagulants; E66.01 Morbid (severe) obesity due to excess calories; N18.31 Chronic kidney disease, stage 3a; L89.152 Pressure ulcer of sacral region, stage 2; Z20.822 Contact with and (suspected) exposure to COVID-19; E78.5 Hyperlipidemia, unspecified; E83.42 Hypomagnesemia; E87.5 Hyperkalemia; E87.6 Hypokalemia; Z87.891 Personal history of nicotine dependence; I25.10 Atherosclerotic heart disease of native coronary artery without angina pectoris; I25.2 Old myocardial infarction; I48.0 Paroxysmal atrial fibrillation; K29.70 Gastritis, unspecified, without bleeding; M54.9 Dorsalgia, unspecified; K57.90 Diverticulosis of intestine, part unspecified, without perforation or abscess without bleeding; K64.9 Unspecified hemorrhoids; Z79.84 Long term (current) use of oral hypoglycemic drugs; Z79.890 Hormone replacement therapy; Z79.899 Other long term (current) drug therapy; Z82.49 Family history of ischemic heart disease and other diseases of the circulatory system; Z86.73 Personal history of transient ischemic attack (TIA), and cerebral infarction without residual deficits; Z82.3 Family history of stroke; Z95.5 Presence of coronary angioplasty implant and graft; Z71.3 Dietary counseling and surveillance; Z88.0 Allergy status to penicillin; Z98.1 Arthrodesis status
CPT/HCPCS: 36410; 36415; 36600; 43239; 45378; 71045; 71046; 76770; 76937; 80048; 80053; 81001; 82272; 82533; 82607; 82728; 82746; 82805; 83036; 83540; 83550; 83605; 83735; 83880; 84145; 84484; 85025; 85027; 85610; 85730; 86850; 86900; 86901; 86920; 87077; 87086; 87186; 87502; 87635; 88305; 93005; 94640; 94760; 96374; 99285

== ENCOUNTER 2022-05-21 08:21 | Observation (INO) | payer MEDICARE ==
--- NOTE | 2022-05-21 08:38 | ED ---
General Adult HPI - General Stated complaint: weakness, UTI Time Seen by Provider: 05/21/22 08:23 - History of Present Illness Initial comments: Dictation was produced using [employer] dictation software. please excuse any grammatical, word or spelling errors. Chief Complaint: 86-year-old female presents emergency department for altered m ental status and weakness History of Present Illness: Patient is a 6-year-old female she is brought in from home by EMS. Patient presents emergency department for altered mental status and weakness. She is a poor historian. She is able to tell me her name. States that she has some shortness of breath. Patient however unable to provide any further detail as to what brings her into the emergency room today. He misses allegedly called by patient's at home. EMS reports that she is here in the ER today for urinary tract infection. Unable to obtain secondary to mental status PHYSICAL EXAM: General Impression: Alert and oriented x1/4, lethargic, not in acute distress HEENT: Normocephalic atraumatic, extra-ocular movements intact, pupils equal and reactive to light bilaterally, mucous membranes moist. Cardiovascular: Heart regular rate and rhythm Chest: Bilateral breath sounds, no retractions, no tachypnea Abdomen: abdomen soft, non-tender, non-distended, no organomegaly Musculoskeletal: Pulses present and equal in all extremities, no peripheral edema Motor: no focal deficits noted Neurological: No facial asymmetry, no focal motor or sensory deficits noted Skin: Intact with no visualized rashes ED course: 86-year-old female presents emergency department for weakness and altered mental status. Unclear how long patient's symptoms have been ongoing. Vital signs upon arrival are within acceptable limits. More history was obtained from patient's was at the bedside. He is not a very good historian as well. States that patient appeared fine this morning. He went to help her get out of bed and put her in a chair when all of a sudden she started complaining of shortness of breath. states that she normally talks a lot and this keeps her head up however is not certain when discussing what her usual baseline is. My EKG interpretation: Ventricular rate 84, A. fib, Q is 73, QTC 375. No LA prolongation, no QTC prolongation, no ST or T-wave changes noted. Chart review shows that patient has history of paroxysmal nature fibrillation. Overall, this EKG is unremarkable Critical care: yes Critical care time: 30 minutes Laboratory evaluation obtained. CBC, coag panel, metabolic panel is within acceptable limits. TSH is slightly elevated patient has history of hypothyroidism take Synthroid. Urinalysis positive for urinary tract infection. Computed tomography scan of the brain unremarkable. Chest x-ray shows possible CHF. Patient be evaluated at bedside not complaining of any shortness of breath. She is not showing any signs of respiratory distress per case discussed with Dr. Montoya who is familiar with the patient. He request the patient be given 20 mg of IV Lasix and monitored in the ER to determine if patient can be discharged. Plan was discussed with family. at the bedside states that he is unable to care for her given that she has significantly poor functionality. is refusing to take patient home in her current condition. He feels that it sounds a for her. She will be admitted to Dr. Charmaine bass. - Related Data Home Medications Medication Instructions Recorded Confirmed Nitroglycerin Sl Tabs [Nitrostat] 0.4 mg SL Q5M PRN 07/20/15 03/31/22 Cyanocobalamin [Vitamin B-12 1,000 mcg SQ Q30D 07/06/19 03/31/22 Injection] Levothyroxine Sodium [Synthroid] 50 mcg PO AC-BRKFST 07/06/19 03/31/22 Albuterol Nebulized [Ventolin 2.5 mg INHALATION RT-QID PRN 02/19/20 03/31/22 Nebulized] Fluticasone/Umeclidin/Vilanter 1 puff INHALATION RT-HS 10/15/21 03/31/22 [Trelegy Ellipta 100-62.5-25] Apixaban [Eliquis] 2.5 mg PO BID 12/09/21 03/31/22 Amitriptyline HCl [Elavil] 100 mg PO HS 03/13/22 03/31/22 Cyanocobalamin (Vitamin B-12) 1,000 mcg PO DAILY 03/13/22 03/31/22 [Vitamin B-12] Gloria Root 550mg 1 tab PO DAILY 03/13/22 03/31/22 Previous Rx's Medication Instructions Recorded Atorvastatin Calcium [Lipitor] 40 mg PO HS #1 tab 08/04/15 Gabapentin 300 mg PO TID #9 cap 04/04/22 Calcium Carbonate [Tums] 1,000 mg PO QID PRN tab 04/13/22 Cefdinir [Omnicef] 300 mg PO Q12HR 5 Days #10 cap 04/13/22 Furosemide [Lasix] 40 mg PO DAILY tab 04/13/22 HYDROcodone/APAP 5-325MG [[place] 1 tab PO TID PRN #9 tab 04/13/22 5-325] INSULIN LISPRO (HumaLOG) [humaLOG] 0 unit SQ ACHS #10 ml 04/13/22 Tamsulosin [Flomax] 0.4 mg PO PC-BRKFST cap 04/13/22 Amiodarone [Cordarone] 200 mg PO DAILY #90 tab 04/14/22 Metoprolol Tartrate [Lopressor] 25 mg PO BID tab 04/14/22 Allergies Allergy/AdvReac Type Severity Reaction Status Date / Time Penicillins Allergy Rash/Hives Verified 03/31/22 20:25 Review of Systems ROS Statement: Those systems with pertinent positive or pertinent negative responses have been documented in the HPI. ROS Other: All systems not noted in ROS Statement are negative. Past Medical History Past Medical History: Chest Pain / Angina, Heart Failure, COPD, CVA/TIA, Diabetes Mellitus, Hyperlipidemia, Hypertension, Osteoarthritis (OA), Thyroid Disorder Additional Past Medical History / Comment(s): Using a wheelchair or a walker, bilateral peripheral neuropathy in feet and hands, chronic low back pain, lower leg edema. Last Myocardial Infarction Date:: 06/17/18 History of Any Multi-Drug Resistant Organisms: ESBL Date of last positivie culture/infection: 09/06/17 MDRO Source:: ESBL URINE Past Surgical History: Back Surgery, Heart Catheterization, Heart Cathet erization With Stent, Joint Replacement, Orthopedic Surgery Additional Past Surgical History / Comment(s): Lumbar laminectomy decompression fusion L3-4 and L5-S1 with cell saver, lumbar instrumentation removal L4-5, L4- L5 laminectomy, BILATERAL KNEE REPLACEMENTS, ORIF RIGHT ANKLE, CERVICAL FUSION, bilateral rotator cuff repair, bilateral wrist carpal tunnel releases, pain procedures, left breast lumpectomy-benign, bilateral varicose vein stripping, bilateral cataracts, heart cath with 5 stents august-2021 Past Anesthesia/Blood Transfusion Reactions: No Reported Reaction Additional Past Anesthesia/Blood Transfusion Reaction / Comment(s): Pt states she has never received blood. Date of Last Stent Placement:: 08/30/2021 Past Psychological History: No Psychological Hx Reported Additional Psychological History / Comment(s): . Smoking Status: Former smoker Past Alcohol Use History: None Reported Additional Past Alcohol Use History / Comment(s): Pt started smoking in 1954 and quit in 1974. She was a 1.5 ppd smoker. Past Drug Use History: None Reported - Past Family History Father Family Medical History: Myocardial Infarction ([place]) Additional Family Medical History / Comment(s): Father at 40 of a [place]. Mother Family Medical History: CVA/TIA Additional Family Medical History / Comment(s): Mother had a CVA Course Vital Signs 05/21/22 05/21/22 08:52 08:56 Temperature 97.6 F Pulse Rate 80 Respiratory 20 20 Rate Blood Pressure 126/48 O2 Sat by Pulse 100 Oximetry Medical Decision Making - Lab Data Result diagrams: 05/21/22 09:13 05/21/22 09:13 Lab Results 05/21/22 05/21/22 05/21/22 Range/Units 09:13 09:13 09:13 WBC 5.9 (3.8-10.6) k/uL RBC 3.50 L (3.80-5.40) m/uL Hgb 9.3 L (11.4-16.0) gm/dL Hct 29.5 L (34.0-46.0) % MCV 84.3 (80.0-100.0) fL MCH 26.4 (25.0-35.0) pg MCHC 31.4 (31.0-37.0) g/dL RDW 17.9 H (11.5-15.5) % Plt Count 285 (150-450) k/uL MPV 7.9 Neutrophils % 59 % Lymphocytes % 29 % Monocytes % 7 % Eosinophils % 2 % Basophils % 0 % Neutrophils # 3.4 (1.3-7.7) k/uL Lymphocytes # 1.7 (1.0-4.8) k/uL Monocytes # 0.4 (0-1.0) k/uL Eosinophils # 0.1 (0-0.7) k/uL Basophils # 0.0 (0-0.2) k/uL Hypochromasia Slight Anisocytosis Slight PT 10.1 (9.0-12.0) sec INR 0.9 (<1.2) APTT 26.6 (22.0-30.0) sec Sodium (137-145) mmol/L Potassium (3.5-5.1) mmol/L Chloride (98-107) mmol/L Carbon Dioxide (22-30) mmol/L Anion Gap mmol/L BUN (7-17) mg/dL Creatinine (0.52-1.04) mg/dL Est GFR (CKD-EPI)AfAm (>60 ml/min/1.73 sqM) Est GFR (CKD-EPI)NonAf (>60 ml/min/1.73 sqM) Glucose (74-99) mg/dL Plasma Lactic Acid Russel (0.7-2.0) mmol/L Calcium (8.4-10.2) mg/dL Magnesium (1.6-2.3) mg/dL Total Bilirubin (0.2-1.3) mg/dL AST (14-36) U/L ALT (4-34) U/L Alkaline Phosphatase (38-126) U/L Troponin I (0.000-0.034) ng/mL Total Protein (6.3-8.2) g/dL Albumin (3.5-5.0) g/dL TSH (0.465-4.680) mIU/L Urine Color Light Yellow Urine Appearance Clear (Clear) Urine pH 5.5 (5.0-8.0) Ur Specific [place] 1.005 (1.001-1.035) Urine Protein Negative (Negative) Urine Glucose (UA) 3+ H (Negative) Urine Ketones Negative (Negative) Urine Blood Negative (Negative) Urine Nitrite Positive H (Negative) Urine Bilirubin Negative (Negative) Urine Urobilinogen <2.0 (<2.0) mg/dL Ur Leukocyte Esterase Large H (Negative) Urine RBC 1 (0-5) /hpf Urine WBC 13 H (0-5) /hpf Ur Squamous Epith Cells <1 (0-4) /hpf Urine Bacteria Few H (None) /hpf Urine Mucus Rare H (None) /hpf Influenza Type A (PCR) (Not Detectd) Influenza Type B (PCR) (Not Detectd) RSV (PCR) (Not Detectd) SARS-CoV-2 (PCR) (Not Detectd) 05/21/22 05/21/22 05/21/22 Range/Units 09:13 09:13 09:13 WBC (3.8-10.6) k/uL RBC (3.80-5.40) m/uL Hgb (11.4-16.0) gm/dL Hct (34.0-46.0) % MCV (80.0-100.0) fL MCH (25.0-35.0) pg MCHC (31.0-37.0) g/dL RDW (11.5-15.5) % Plt Count (150-450) k/uL MPV Neutrophils % % Lymphocytes % % Monocytes % % Eosinophils % % Basophils % % Neutrophils # (1.3-7.7) k/uL Lymphocytes # (1.0-4.8) k/uL Monocytes # (0-1.0) k/uL Eosinophils # (0-0.7) k/uL Basophils # (0-0.2) k/uL Hypochromasia Anisocytosis PT (9.0-12.0) sec INR (<1.2) APTT (22.0-30.0) sec Sodium 127 L (137-145) mmol/L Potassium 5.2 H (3.5-5.1) mmol/L Chloride 95 L (98-107) mmol/L Carbon Dioxide 26 (22-30) mmol/L Anion Gap 6 mmol/L BUN 47 H (7-17) mg/dL Creatinine 1.17 H (0.52-1.04) mg/dL Est GFR (CKD-EPI)AfAm 49 (>60 ml/min/1.73 sqM) Est GFR (CKD-EPI)NonAf 43 (>60 ml/min/1.73 sqM) Glucose 101 H (74-99) mg/dL Plasma Lactic Acid Russel 0.9 (0.7-2.0) mmol/L Calcium 8.0 L (8.4-10.2) mg/dL Magnesium 2.8 H (1.6-2.3) mg/dL Total Bilirubin 0.4 (0.2-1.3) mg/dL AST 22 (14-36) U/L ALT 14 (4-34) U/L Alkaline Phosphatase 104 (38-126) U/L Troponin I <0.012 (0.000-0.034) ng/mL Total Protein 5.6 L (6.3-8.2) g/dL Albumin 3.2 L (3.5-5.0) g/dL TSH 6.470 H (0.465-4.680) mIU/L Urine Color Urine Appearance (Clear) Urine pH (5.0-8.0) Ur Specific [place] (1.001-1.035) Urine Protein (Negative) Urine Glucose (UA) (Negative) Urine Ketones (Negative) Urine Blood (Negative) Urine Nitrite (Negative) Urine Bilirubin (Negative) Urine Urobilinogen (<2.0) mg/dL Ur Leukocyte Esterase (Negative) Urine RBC (0-5) /hpf Urine WBC (0-5) /hpf Ur Squamous Epith Cells (0-4) /hpf Urine Bacteria (None) /hpf Urine Mucus (None) /hpf Influenza Type A (PCR) (Not Detectd) Influenza Type B (PCR) (Not Detectd) RSV (PCR) (Not Detectd) SARS-CoV-2 (PCR) (Not Detectd) 05/21/22 Range/Units 09:13 WBC (3.8-10.6) k/uL RBC (3.80-5.40) m/uL Hgb (11.4-16.0) gm/dL Hct (34.0-46.0) % MCV (80.0-100.0) fL MCH (25.0-35.0) pg MCHC (31.0-37.0) g/dL RDW (11.5-15.5) % Plt Count (150-450) k/uL MPV Neutrophils % % Lymphocytes % % Monocytes % % Eosinophils % % Basophils % % Neutrophils # (1.3-7.7) k/uL Lymphocytes # (1.0-4.8) k/uL Monocytes # (0-1.0) k/uL Eosinophils # (0-0.7) k/uL Basophils # (0-0.2) k/uL Hypochromasia Anisocytosis PT (9.0-12.0) sec INR (<1.2) APTT (22.0-30.0) sec Sodium (137-145) mmol/L Potassium (3.5-5.1) mmol/L Chloride (98-107) mmol/L Carbon Dioxide (22-30) mmol/L Anion Gap mmol/L BUN (7-17) mg/dL Creatinine (0.52-1.04) mg/dL Est GFR (CKD-EPI)AfAm (>60 ml/min/1.73 sqM) Est GFR (CKD-EPI)NonAf (>60 ml/min/1.73 sqM) Glucose (74-99) mg/dL Plasma Lactic Acid Russel (0.7-2.0) mmol/L Calcium (8.4-10.2) mg/dL Magnesium (1.6-2.3) mg/dL Total Bilirubin (0.2-1.3) mg/dL AST (14-36) U/L ALT (4-34) U/L Alkaline Phosphatase (38-126) U/L Troponin I (0.000-0.034) ng/mL Total Protein (6.3-8.2) g/dL Albumin (3.5-5.0) g/dL TSH (0.465-4.680) mIU/L Urine Color Urine Appearance (Clear) Urine pH (5.0-8.0) Ur Specific [place] (1.001-1.035) Urine Protein (Negative) Urine Glucose (UA) (Negative) Urine Ketones (Negative) Urine Blood (Negative) Urine Nitrite (Negative) Urine Bilirubin (Negative) Urine Urobilinogen (<2.0) mg/dL Ur Leukocyte Esterase (Negative) Urine RBC (0-5) /hpf Urine WBC (0-5) /hpf Ur Squamous Epith Cells (0-4) /hpf Urine Bacteria (None) /hpf Urine Mucus (None) /hpf Influenza Type A (PCR) Not Detected (Not Detectd) Influenza Type B (PCR) Not Detected (Not Detectd) RSV (PCR) Not Detected (Not Detectd) SARS-CoV-2 (PCR) Not Detected (Not Detectd) Disposition Clinical Impression: UTI (urinary tract infection), Gravely disabled Disposition: ADMITTED IP TO THIS [facility] Condition: Fair Referrals: Phan Hartman Jr, DO [Primary Care Provider] - 1-2 days Decision Time: 11:31
[2022-05-21 09:30] LABS: Anisocytosis Slight; Basophils % (A) 0 %; Eosinophils # (A) 0.1 k/uL (0-0.7); Eosinophils % (A) 2 %; HCT 29.5 % (34.0-46.0); HGB 9.3 gm/dL (11.4-16.0); Hypochromasia Slight; Lymphocytes # (A) 1.7 k/uL (1.0-4.8); Lymphocytes % (A) 29 %; MCH 26.4 pg (25.0-35.0); MCHC 31.4 g/dL (31.0-37.0); MCV 84.3 fL (80.0-100.0); Mean Platelet Volume 7.9; Monocytes # (A) 0.4 k/uL (0-1.0); Monocytes % (A) 7 %; Neutrophils # (A) 3.4 k/uL (1.3-7.7); Neutrophils % (A) 59 %; Platelet Count 285 k/uL (150-450); RDW 17.9 % (11.5-15.5); WBC 5.9 k/uL (3.8-10.6)
[2022-05-21 09:40] LABS: Albumin 3.2 g/dL (3.5-5.0); Magnesium 2.8 mg/dL (1.6-2.3); Potassium 5.2 mmol/L (3.5-5.1); Total Bilirubin 0.4 mg/dL (0.2-1.3); Total Protein 5.6 g/dL (6.3-8.2)
[2022-05-21 09:47] LABS: INR 0.9 (<1.2); Partial Thromboplastin Time 26.6 sec (22.0-30.0); Prothrombin Time 10.1 sec (9.0-12.0)
[2022-05-21 09:50] LABS: Appearance,Urine Clear (Clear); Bacteria,Urine Few /hpf; Bilirubin,Urine Negative (Negative); Blood,Urine Negative (Negative); Color,Urine Light Yellow; Glucose,Urine (UA) 3+ (Negative); Ketones,Urine Negative (Negative); Leukocyte Esterase,Urine Large (Negative); Mucus,Urine Rare /hpf; Nitrite,Urine Positive (Negative); PH, Urine 5.5 (5.0-8.0); Protein,Urine Negative (Negative); RBC,Urine 1 /hpf (0-5); Specific Gravity,Urine 1.005 (1.001-1.035); Squamous Epithelial Cell,Urine <1 /hpf (0-4); Urobilinogen,Urine <2.0 mg/dL (<2.0); WBC,Urine 13 /hpf (0-5)
--- NOTE | 2022-05-21 10:02 | CT ---
EXAMINATION TYPE: CT brain wo con DATE OF EXAM: 05/21/2022 COMPARISON: 07/07/2019 HISTORY: 86 year-old female shortness of breath, confusion, Altered mental status TECHNIQUE: Examination was done in axial plane without intravenous contrast. Coronal and sagittal r econstructions performed. CT DLP: 1074.4 mGycm Automated exposure control for dose reduction was used. FINDINGS: There is no evidence of acute intracranial hemorrhage, acute ischemic changes, mass, mass-effect, or extra-axial fluid collection. There is no effacement of cerebral sulci or basal subarachnoid cister ns. There is no hydrocephalus. There is no midline shift. Yoo-white matter distinction is preserv ed. 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 Dense atherosclerotic calcifications along the anterior falx in the distribution of the anterior cere bral artery unchanged. Mild periventricular white matter hypodensities in the posterior hemispheres. Minimal age-related cer ebral volume loss. Minimal benign basal ganglionic calcifications are noted. Paranasal sinuses and mastoid air cells are pneumatized. Orbits and globes are intact. IMPRESSION: Chronic changes. Mild burden of chronic small vessel ischemic disease. No acute intracranial abnormal ity seen.
[2022-05-21] MEDS ORDERED: cefTRIAXone IN SWFI 1,000 MG/10 ML SYRINGE IVP STA (10:30)
--- NOTE | 2022-05-21 10:34 | XR ---
EXAMINATION TYPE: XR chest 1V portable DATE OF EXAM: 05/21/2022 Comparison: 04/05/2022 Clinical History: 86-year-old female short of breath, dyspnea Findings: Heart mildly enlarged. Interstitial prominence and patchy bibasilar opacities have increased. Loss of the subacromial space on both sides. Previous repair of the cuff on the left. Impression: Cardiomegaly and interstitial changes, correlate for CHF with pulmonary vascular congestion. Addition al patchy bibasilar infiltrates versus patchy pulmonary edema. Clinically correlate.
[2022-05-21] MEDS ORDERED: NALOXONE 0.4 MG/ML 1 ML VIAL IV PRN (11:28)
[2022-05-21] MEDS ORDERED: FUROSEMIDE 10 MG/ML 2 ML VIAL IV ONE (11:28)
[2022-05-21] MEDS ORDERED: ACETAMINOPHEN TAB 325 MG TAB PO PRN (11:28)
[2022-05-21] MEDS: SODIUM CHLORIDE 0.9% 1,000 ML IV SCH (12:18)
[2022-05-21 17:16] LABS: Glucose,Whole Blood 99 mg/dL (70-110)
[2022-05-21] MEDS ORDERED: CALCIUM CARBONATE 500 MG CHEWABLE PO PRN (18:20)
[2022-05-21] MEDS ORDERED: NITROGLYCERIN SL TABS 0.4 MG TAB SUBLINGUAL PRN (18:20)
[2022-05-21] MEDS ORDERED: ALBUTEROL NEBULIZED 2.5 MG/3 ML INHALATION PRN (18:20)
[2022-05-21] MEDS ORDERED: DEXTROSE 50% SYRINGE 50 ML IVP PRN ×2 (18:21)
[2022-05-21] MEDS ORDERED: CYANOCOBALAMIN 1,000 MCG/ML 1 ML VIAL SQ SCH (18:30)
[2022-05-21 20:05] LABS: Glucose,Whole Blood 100 mg/dL (70-110)
[2022-05-21] MEDS: INSULIN ASPART (NovoLOG) 100 UNIT/ML VIAL SQ SCH (21:36)
[2022-05-21] MEDS: ATORVASTATIN 40 MG TAB PO SCH (21:43)
[2022-05-21] MEDS: GABAPENTIN 300 MG CAP PO SCH (21:43)
[2022-05-21] MEDS: METOPROLOL TARTRATE 25 MG TAB PO SCH (21:43)
[2022-05-21] MEDS: AMITRIPTYLINE HCL 50 MG TAB PO SCH (21:43)
[2022-05-21] MEDS: APIXABAN 2.5 MG TABLET PO SCH (21:43)
[2022-05-22 07:22] LABS: Glucose,Whole Blood 82 mg/dL (70-110)
[2022-05-22] MEDS: INSULIN ASPART (NovoLOG) 100 UNIT/ML VIAL SQ SCH ×4 (07:24→21:06)
[2022-05-22] MEDS: TAMSULOSIN 0.4 MG CAP.ER.24H PO SCH (09:26)
[2022-05-22] MEDS: LEVOTHYROXINE 50 MCG TAB PO SCH (09:26)
[2022-05-22] MEDS: AMIODARONE 200 MG TAB PO SCH (09:29)
[2022-05-22] MEDS: METOPROLOL TARTRATE 25 MG TAB PO SCH ×2 (09:29→21:05)
[2022-05-22] MEDS: APIXABAN 2.5 MG TABLET PO SCH ×2 (09:29→21:05)
[2022-05-22] MEDS: FUROSEMIDE 40 MG TAB PO SCH (09:29)
[2022-05-22] MEDS: GABAPENTIN 300 MG CAP PO SCH ×3 (09:30→21:05)
[2022-05-22 09:41] LABS: Anisocytosis Slight; HCT 30.8 % (34.0-46.0); HGB 9.6 gm/dL (11.4-16.0); Hypochromasia Marked; MCH 27.4 pg (25.0-35.0); MCV 88.3 fL (80.0-100.0); Mean Platelet Volume 7.9; Platelet Count 318 k/uL (150-450); RBC 3.49 m/uL (3.80-5.40); WBC 5.4 k/uL (3.8-10.6)
[2022-05-22 09:53] LABS: African American GFR (CKD) 64 (>60 ml/min/1.73 sqM); Anion Gap 8 mmol/L; Blood Urea Nitrogen 34 mg/dL (7-17); Calcium 8.3 mg/dL (8.4-10.2); Carbon Dioxide 25 mmol/L (22-30); Chloride 101 mmol/L (98-107); Glucose 82 mg/dL (74-99); Non-African American GFR(CKD) 56 (>60 ml/min/1.73 sqM); Potassium 5.1 mmol/L (3.5-5.1); Sodium 134 mmol/L (137-145)
[2022-05-22 12:29] LABS: Glucose,Whole Blood 80 mg/dL (70-110)
--- NOTE | 2022-05-22 13:50 | P.HPIM ---
History of Present Illness H&P Date: 05/22/22 THis is a 86-year-old female with past medical history of COPD, CHF,aortic stenosis, coronary artery disease,chronic diastolic heart failure, chronic anemia, morbid obesity, recently discharged from [facility] subacute rehab on May, presented to the emergency department with altered mental status, weakness. On admission, VSS,maintaining O2 sats of 100% on room air, afebrile. Denies chest pain, palpitations or shortness of breath. Denies nausea vomiting or diarrhea. Denies abdominal pain. Denies syncope .Chest x- ray reported cardiomegaly, interstitial changes, correlate for CHF and pulmonary vascular congestion, additional patchy bibasilar infiltrates versus patchy pulmonary edema. Brain CT reported no acute abnormality. EKG reported atrial fibrillation. UA positive, culture pending. Received a dose of Lasix IV in the ER along with empiric antibiotics initiated. Afebrile, normal WBC. Sodium 127, BUN 47 and creatinine 1.17 on admission, currently on gentle IV fluid hydration with sodium currently 134, BUN 34 and creatinine improved to 0.95. Review of Systems ROS Statement: Those systems with pertinent positive or pertinent negative responses have been documented in the HPI. ROS Other: All systems not noted in ROS Statement are negative. Past Medical History Past Medical History: Chest Pain / Angina, Heart Failure, COPD, CVA/TIA, Diabetes Mellitus, Hyperlipidemia, Hypertension, Osteoarthritis (OA), Renal Disease, Sleep Apnea/CPAP/BIPAP, Thyroid Disorder Additional Past Medical History / Comment(s): Using a wheelchair or a walker, bilateral peripheral neuropathy in feet and hands, chronic low back pain, lower leg edema, gastritis, anemia, aortic stenosis, chronic renal failure, hemorrhoids Last Myocardial Infarction Date:: 06/17/18 History of Any Multi-Drug Resistant Organisms: ESBL Date of last positivie culture/infection: 09/06/17 MDRO Source:: ESBL URINE Past Surgical History: Back Surgery, Heart Catheterization, Heart Catheterization With Stent, Joint Replacement, Orthopedic Surgery Additional Past Surgical History / Comment(s): Lumbar laminectomy decompression fusion L3-4 and L5-S1 with cell saver, lumbar instrumentation removal L4-5, L4- L5 laminectomy, BILATERAL KNEE REPLACEMENTS, ORIF RIGHT ANKLE, CERVICAL FUSION, bilateral rotator cuff repair, bilateral wrist carpal tunnel releases, pain procedures, left breast lumpectomy-benign, bilateral varicose vein stripping, bilateral cataracts, heart cath with 5 stents august 2021, egd/colonoscopy 04/13/22 Past Anesthesia/Blood Transfusion Reactions: No Reported Reaction Additional Past Anesthesia/Blood Transfusion Reaction / Comment(s): blood transfusion 04/01/[address] estrella's notes last hospital stay Date of Last Stent Placement:: 08/30/2021 Smoking Status: Former smoker - Past Family History Father Family Medical History: Myocardial Infarction ([place]) Additional Family Medical History / Comment(s): Father at 40 of a [place]. Mother Family Medical History: CVA/TIA Additional Family Medical History / Comment(s): Mother had a CVA Medications and Allergies Home Medications Medication Instructions Recorded Confirmed Type Nitroglycerin Sl Tabs [Nitrostat] 0.4 mg SL Q5M PRN 07/20/15 05/21/22 History Atorvastatin Calcium [Lipitor] 40 mg PO HS #1 tab 08/04/15 05/21/22 Rx Cyanocobalamin [Vitamin B-12 1,000 mcg SQ Q30D 07/06/19 05/21/22 History Injection] Levothyroxine Sodium [Synthroid] 50 mcg PO AC-BRKFST 07/06/19 05/21/22 History Albuterol Nebulized [Ventolin 2.5 mg INHALATION RT-QID PRN 02/19/20 05/21/22 History Nebulized] Fluticasone/Umeclidin/Vilanter 1 puff INHALATION RT-HS 10/15/21 05/21/22 History [Trelegy Ellipta 100-62.5-25] Apixaban [Eliquis] 2.5 mg PO BID 12/09/21 05/21/22 History Amitriptyline HCl [Elavil] 100 mg PO HS 03/13/22 05/21/22 History Cyanocobalamin (Vitamin B-12) 1,000 mcg PO DAILY 03/13/22 05/21/22 History [Vitamin B-12] Gloria Root 550mg 1 tab PO DAILY 03/13/22 05/21/22 History Gabapentin 300 mg PO TID #9 cap 04/04/22 05/21/22 Rx Calcium Carbonate [Tums] 1,000 mg PO QID PRN tab 04/13/22 05/21/22 Rx Furosemide [Lasix] 40 mg PO DAILY tab 04/13/22 05/21/22 Rx Tamsulosin [Flomax] 0.4 mg PO PC-BRKFST cap 04/13/22 05/21/22 Rx Amiodarone [Cordarone] 200 mg PO DAILY #90 tab 04/14/22 05/21/22 Rx Metoprolol Tartrate [Lopressor] 25 mg PO BID tab 04/14/22 05/21/22 Rx HYDROcodone/APAP 5-325MG [Delia 1 tab PO Q6H PRN 05/21/22 05/21/22 History 5-325] Insulin Lispro [humaLOG Kwikpen] See Protocol SQ ACHS 05/21/22 05/21/22 History Allergies Allergy/AdvReac Type Severity Reaction Status Date / Time Penicillins Allergy Rash/Hives Verified 05/21/22 13:55 Physical Exam Vitals: Vital Signs Temp Pulse Resp BP Pulse Ox FiO2 05/22/22 11:28 97.9 F 68 16 164/68 98 05/22/22 09:35 100 21 05/22/22 09:30 80 144/62 99 05/22/22 05:05 97.7 F 73 16 144/55 100 05/21/22 19:44 98 F 85 16 120/66 98 05/21/22 15:13 98.2 F 83 16 146/69 99 Intake and Output 05/21/22 05/22/22 05/22/22 22:59 06:59 14:59 Intake Total 240 Output Total 900 800 800 Balance -900 -560 -800 Intake: Intake, IV Titration 240 Amount Sodium Chloride 0.9% 1, 240 000 ml @ 20 mls/hr IV . Q24H [facility] Rx#:[id number] Output: Urine 900 800 800 Other: Voiding Method External Catheter External Catheter Weight 111.13 kg 109.5 kg - Exam General: Patient awake, alert and oriented times 3. Withdrawn, conversing appropriately HEENT: [PERRL. EOMI. No pharyngeal erythema or exudate. Conjunctiva normal Neck: Supple, no JVD Cardiac: [Heart regularly irregular No S3. No S4. No clicks, rubs. Systolic murmur. Lungs: Unlabored, Clear to auscultation bilaterally.] Abdomen: [No mass. No organomegaly. Bowel sounds presnt and normoactive in all 4 quadrants.] Extremes: Minimal edema bilateral lower extremes no cyanosis no claudication normal pulses] Skin: [Warm and dry, No rash.] Neurologic: Cranial nerves II-12 grossly intact, no focal deficit Results CBC & Chem 7: 05/22/22 09:15 05/22/22 09:15 Labs: Abnormal Lab Results - Last 24 Hours (Table) 05/22/22 05/22/22 Range/Units 09:15 09:15 RBC 3.49 L (3.80-5.40) m/uL Hgb 9.6 L (11.4-16.0) gm/dL Hct 30.8 L (34.0-46.0) % RDW 18.0 H (11.5-15.5) % Sodium 134 L (137-145) mmol/L BUN 34 H (7-17) mg/dL Calcium 8.3 L (8.4-10.2) mg/dL Microbiology - Last 24 Hours (Table) 05/21/22 09:13 Blood Culture - Preliminary Blood No Growth after 24 hours 05/21/22 09:13 Urine Culture - Preliminary Urine,Voided Thrombosis Risk Factor Assmnt - Choose All That Apply Each Factor Represents 1 point: Abnormal pulmonary function (COPD), Swollen legs (current) Each Risk Factor Represents 3 Points: Age 75 years or older Thrombosis Risk Factor Assessment Total Risk Factor Score: 5 Thrombosis Risk Factor Assessment Level: High Risk Assessment and Plan Assessment: Possible recurrent acute UTI, cultures pending Altered mental status, acute metabolic encephalopathy, secondary to possible acute UTI, culture pending; improved CAD with history of stent placement Valvular heart disease aortic valve stenosis, preserved LV function Chronic diastolic CHF COPD Hypothyroidism Grieving, recent diagnoses of cancer in family members, reports patient minimally eating, minimal active Chronic back pain Paroxysmal atrial fibrillation Morbid obesity, BMI 42.8 History of CVA, TIA History of moderate aortic stenosis History of prior nicotine dependence Chronic anemia Plan: Continue on current medication regime ,monitoring and symptomatic treatment. Maintain gentle IV fluid hydration. Empiric antibiotics, culture finalizing. PT/OT. Significant other at bedside, discussed subacute rehab at discharge. Discharge planning in progress for Sunday. The impression and plan of care has been dictated as directed. : I performed a history and examination of this patient, discussed the same with the dictator. I agree with the dictator's note ,documented as a scribe. Any additional findings or plans will be noted.
[2022-05-22] MEDS: CYANOCOBALAMIN 500 MCG TAB PO SCH (16:24)
[2022-05-22] MEDS: IPRATROPIUM-ALBUTEROL 3 ML NEB INHALATION SCH ×2 (16:40→19:42)
[2022-05-22 17:18] LABS: Glucose,Whole Blood 103 mg/dL (70-110)
[2022-05-22] MEDS: SYMBICORT 80-4.5 MCG INHALER INHALATION SCH (19:42)
[2022-05-22 20:12] LABS: Glucose,Whole Blood 127 mg/dL (70-110)
[2022-05-22] MEDS: ATORVASTATIN 40 MG TAB PO SCH (21:05)
[2022-05-22] MEDS: AMITRIPTYLINE HCL 50 MG TAB PO SCH (21:05)
[2022-05-22] MEDS: SODIUM CHLORIDE 0.9% 1,000 ML IV SCH (21:06)
[2022-05-23 06:55] LABS: Glucose,Whole Blood 99 mg/dL (70-110)
[2022-05-23] MEDS: INSULIN ASPART (NovoLOG) 100 UNIT/ML VIAL SQ SCH ×4 (07:49→21:00)
[2022-05-23] MEDS: SYMBICORT 80-4.5 MCG INHALER INHALATION SCH ×2 (07:52→19:33)
[2022-05-23] MEDS: IPRATROPIUM-ALBUTEROL 3 ML NEB INHALATION SCH ×4 (07:52→19:33)
[2022-05-23] MEDS: METOPROLOL TARTRATE 25 MG TAB PO SCH ×2 (09:27→20:57)
[2022-05-23] MEDS: CYANOCOBALAMIN 500 MCG TAB PO SCH (09:27)
[2022-05-23] MEDS: FUROSEMIDE 40 MG TAB PO SCH (09:27)
[2022-05-23] MEDS: LEVOTHYROXINE 50 MCG TAB PO SCH (09:27)
[2022-05-23] MEDS: APIXABAN 2.5 MG TABLET PO SCH ×2 (09:27→20:57)
[2022-05-23] MEDS: AMIODARONE 200 MG TAB PO SCH (09:27)
[2022-05-23] MEDS: GABAPENTIN 300 MG CAP PO SCH ×3 (09:27→20:56)
[2022-05-23] MEDS: TAMSULOSIN 0.4 MG CAP.ER.24H PO SCH (09:29)
[2022-05-23] MEDS: AMPICILLIN-SULBACTAM 3 GM in SODIUM CHLORIDE 0.9% 100 ML IVPB SCH ×2 (09:44→17:12)
[2022-05-23 10:17] LABS: African American GFR (CKD) 68.1 (60.0-200.0); Anion Gap 8.1 mmol/L (10.00-18.00); BUN/Creat Ratio 25.11 Ratio (12.00-20.00); Blood Urea Nitrogen 22.6 mg/dL (9.0-27.0); Calcium 8.1 mg/dL (8.7-10.3); Carbon Dioxide 27.9 mmol/L (20.0-27.5); Non-African American GFR(CKD) 58.7 (60.0-200.0); Potassium 4.7 mmol/L (3.5-5.5)
[2022-05-23 11:26] LABS: Glucose,Whole Blood 105 mg/dL (70-110)
[2022-05-23] MEDS: SODIUM CHLORIDE 0.9% 1,000 ML IV SCH (14:09)
--- NOTE | 2022-05-23 15:02 | P.PN ---
Subjective Progress Note Date: 05/23/22 H&P Date: 05/22/22 THis is a 86-year-old female with past medical history of COPD, CHF,aortic stenosis, coronary artery disease,chronic diastolic heart failure, chronic anemia, morbid obesity, recently discharged from [facility] subacute rehab on May, presented to the emergency department with altered mental status, weakness. On admission, VSS,maintaining O2 sats of 100% on room air, afebrile. Denies chest pain, palpitations or shortness of breath. Denies nause a vomiting or diarrhea. Denies abdominal pain. Denies syncope .Chest x-ray reported cardiomegaly, interstitial changes, correlate for CHF and pulmonary vascular congestion, additional patchy bibasilar infiltrates versus patchy pulmonary edema. Brain CT reported no acute abnormality. EKG reported atrial fibrillation. UA positive, culture pending. Received a dose of Lasix IV in the ER along with empiric antibiotics initiated. Afebrile, normal WBC. Sodium 127, BUN 47 and creatinine 1.17 on admission, currently on gentle IV fluid hydration with sodium currently 134, BUN 34 and creatinine improved to 0.95. 05/23/2022 preliminary urine culture reporting preliminary culture reporting Providencia stuartii, group D enterococcus, antibiotics adjusted. Afebrile Much more alert today, conversing fluently. Denies chest pain, palpitations, shortness of breath. Denies nausea vomiting or diarrhea. Denies abdominal pain. Evaluated by PT, patient is a 2 person assist, recommending subacute rehab. Objective - Vital Signs Vital signs: Vital Signs Temp 98 F 05/23/22 11:06 Pulse 70 05/23/22 12:24 Resp 18 05/23/22 11:06 BP 158/68 05/23/22 11:06 Pulse Ox 95 05/23/22 12:11 FiO2 21 05/22/22 09:35 Intake & Output 05/22/22 05/23/22 05/23/22 18:59 06:59 18:59 Intake Total 240 Output Total 2100 450 Balance -1860 -450 Weight 108 kg Intake: Intake, IV Titration 240 Amount Sodium Chloride 0.9% 1, 240 000 ml @ 20 mls/hr IV . Q24H [facility] Rx#:[id number] Output: Urine 2100 450 Other: Voiding Method External Catheter External Catheter External Catheter # Bowel Movements 1 - Exam - Exam General: Alert and oriented 3, sitting up in bed, conversing HEENT: [PERRL. EOMI. No pharyngeal erythema or exudate. Conjunctiva normal Neck: Supple, no JVD Cardiac: [Heart regularly irregular No S3. No S4. No clicks, rubs. Systolic murmur. Lungs: Unlabored, Clear to auscultation bilaterally.] Abdomen: [Soft, nontender, No mass. No organomegaly. Bowel sounds presnt and normoactive in all 4 quadrants.] Extremes: Minimal edema bilateral lower extremes no cyanosis no claudication normal pulses] Skin: [Warm and dry, No rash.] Neurologic: Cranial nerves II-12 grossly intact, no focal deficit - Labs CBC & Chem 7: 05/22/22 09:15 05/23/22 05:52 Labs: Abnormal Lab Results - Last 24 Hours (Table) 05/22/22 05/23/22 Range/Units 20:11 05:52 Sodium 134 L (135-145) mmol/L Carbon Dioxide 27.9 H (20.0-27.5) mmol/L Anion Gap 8.10 L (10.00-18.00) mmol/L Est GFR (CKD-EPI)NonAf 58.7 L (60.0-200.0) BUN/Creatinine Ratio 25.11 H (12.00-20.00) Ratio POC Glucose (mg/dL) 127 H (70-110) mg/dL Calcium 8.1 L (8.7-10.3) mg/dL Microbiology - Last 24 Hours (Table) 05/21/22 09:13 Blood Culture - Preliminary Blood No Growth after 48 hours 05/21/22 09:13 Urine Culture - Preliminary Urine,Voided Providencia stuartii Group D Enterococcus Assessment and Plan Assessment: Possible recurrent acute UTI, preliminary culture reporting Providencia stuartii, group D enterococcus Altered mental status, acute metabolic encephalopathy, secondary to acute UTI, improved CAD with history of stent placement Valvular heart disease aortic valve stenosis, preserved LV function Chronic diastolic CHF COPD Hypothyroidism Grieving, recent diagnoses of cancer in family members, reports patient minimally eating, minimal active Chronic back pain Paroxysmal atrial fibrillation Morbid obesity, BMI 42.8 History of CVA, TIA History of moderate aortic stenosis History of prior nicotine dependence Chronic anemia Plan: Continue on current medication regime ,monitoring and symptomatic treatment. Maintain gentle IV fluid hydration. Antibiotics adjusted, culture finalizing, ID consulted. Discharge planning in progress for return to [facility] subacute rehab., patient in agreement with. The impression and plan of care has been dictated as directed. : I performed a history and examination of this patient, discussed the same with the dictator. I agree with the dictator's note ,documented as a scribe. Any additional findings or plans will be noted.
[2022-05-23 16:59] LABS: Glucose,Whole Blood 187 mg/dL (70-110)
[2022-05-23 19:50] VITALS: RESP 16
[2022-05-23] MEDS: ATORVASTATIN 40 MG TAB PO SCH (20:57)
[2022-05-23] MEDS: AMITRIPTYLINE HCL 50 MG TAB PO SCH (20:58)
[2022-05-23 20:59] LABS: Glucose,Whole Blood 136 mg/dL (70-110)
[2022-05-23] MEDS: HYDROcodone/APAP 5-325MG 1 EACH TAB PO PRN (21:05)
--- NOTE | 2022-05-23 23:13 | P.CONS ---
History of Present Illness - Reason for Consult Consult date: 05/23/22 Recurrent urinary tract infection Requesting physician: Alma Barrera - Chief Complaint Weakness x few days - History of Present Illness Patient is a 86-year-old female with a past medical history pertinent for CHF COPD coronary artery disease aortic stenosis chronic diastolic heart failure morbid obesity recent discharge from the local snf on May 14, 2022 presenting to the ER for evaluation of mental status changes and weakness in this patient symptom has been going on for a day or 2 before presentation to the hospital patient denies having any headache no URI symptoms no chest pain or shortness of breath occasional cough denies any nausea vomiting abdominal pain or any diarrhea with the symptom the patient was evaluated by ER physician on arrival to the ER patient was afebrile and no fever has been recorded subsequently patient did have a normal white count kidney function has been normal liver labs are normal patient did have a positive UA COVID influenza and SARS-CoV-2 testing was negative urine has been finalized with procidentia and Enterococcus faecalis patient was on ceftriaxone that was switched to Unasyn patient do have a penicillin allergy seem to have tolerated Unasyn infectious disease was consulted for further management of antibiotic therapy Review of Systems Positive point has been mentioned in the HPI rest of the systems are negative Past Medical History Past Medical History: Chest Pain / Angina, Heart Failure, COPD, CVA/TIA, Diabetes Mellitus, Hyperlipidemia, Hypertension, Osteoarthritis (OA), Renal Disease, Sleep Apnea/CPAP/BIPAP, Thyroid Disorder Additional Past Medical History / Comment(s): Using a wheelchair or a walker, bilateral peripheral neuropathy in feet and hands, chronic low back pain, lower leg edema, gastritis, anemia, aortic stenosis, chronic renal failure, hemorrhoids Last Myocardial Infarction Date:: 06/17/18 History of Any Multi-Drug Resistant Organisms: ESBL Year Discovered:: 09/06/17 MDRO Source:: ESBL URINE Past Surgical History: Back Surgery, Heart Catheterization, Heart Catheterization With Stent, Joint Replacement, Orthopedic Surgery Additional Past Surgical History / Comment(s): Lumbar laminectomy decompression fusion L3-4 and L5-S1 with cell saver, lumbar instrumentation removal L4-5, L4- L5 laminectomy, BILATERAL KNEE REPLACEMENTS, ORIF RIGHT ANKLE, CERVICAL FUSION, bilateral rotator cuff repair, bilateral wrist carpal tunnel releases, pain procedures, left breast lumpectomy-benign, bilateral varicose vein stripping, bilateral cataracts, heart cath with 5 stents august 2021, egd/colonoscopy 04/13/22 Past Anesthesia/Blood Transfusion Reactions: No Reported Reaction Additional Past Anesthesia/Blood Transfusion Reaction / Comm: blood transfusion 04/01/[address] estrella's notes last hospital stay Date of Last Stent Placement:: 08/30/2021 Smoking Status: Former smoker - Past Family History Father Family Medical History: Myocardial Infarction ([place]) Additional Family Medical History / Comment(s): Father at 40 of a [place]. Mother Family Medical History: CVA/TIA Additional Family Medical History / Comment(s): Mother had a CVA Medications and Allergies Home Medications Medication Instructions Recorded Confirmed Type Nitroglycerin Sl Tabs [Nitrostat] 0.4 mg SL Q5M PRN 07/20/15 05/21/22 History Atorvastatin Calcium [Lipitor] 40 mg PO HS #1 tab 08/04/15 05/21/22 Rx Cyanocobalamin [Vitamin B-12 1,000 mcg SQ Q30D 07/06/19 05/21/22 History Injection] Levothyroxine Sodium [Synthroid] 50 mcg PO AC-BRKFST 07/06/19 05/21/22 History Fluticasone/Umeclidin/Vilanter 1 puff INHALATION RT-HS 10/15/21 05/21/22 History [Trelegy Ellipta 100-62.5-25] Apixaban [Eliquis] 2.5 mg PO BID 12/09/21 05/21/22 History Amitriptyline HCl [Elavil] 100 mg PO HS 03/13/22 05/21/22 History Cyanocobalamin (Vitamin B-12) 1,000 mcg PO DAILY 03/13/22 05/21/22 History [Vitamin B-12] Gloria Root 550mg 1 tab PO DAILY 03/13/22 05/21/22 History Gabapentin 300 mg PO TID #9 cap 04/04/22 05/21/22 Rx Calcium Carbonate [Tums] 1,000 mg PO QID PRN tab 04/13/22 05/21/22 Rx Furosemide [Lasix] 40 mg PO DAILY tab 04/13/22 05/21/22 Rx Tamsulosin [Flomax] 0.4 mg PO PC-BRKFST cap 04/13/22 05/21/22 Rx Amiodarone [Cordarone] 200 mg PO DAILY #90 tab 04/14/22 05/21/22 Rx Metoprolol Tartrate [Lopressor] 25 mg PO BID tab 04/14/22 05/21/22 Rx HYDROcodone/APAP 5-325MG [[place] 1 tab PO Q6H PRN 05/21/22 05/21/22 History 5-325] Insulin Lispro [humaLOG Kwikpen] See Protocol SQ ACHS 05/21/22 05/21/22 History Acetaminophen Tab [Tylenol] 650 mg PO Q6HR PRN tab 05/24/22 Rx Amoxic-Pot Clav 875-125Mg 1 tab PO Q12HR 1 Days #14 tab 05/24/22 Rx [Augmentin 875-125] INSULIN ASPART (NovoLOG) [NovoLOG 0 unit SQ ACHS each 05/24/22 Rx (formulary)] Ipratropium-Albuterol Nebulize 3 ml INHALATION RT-QID 30 Days #90 05/24/22 Rx [Duoneb 0.5 mg-3 mg/3 ml Soln] each Allergies Allergy/AdvReac Type Severity Reaction Status Date / Time Penicillins Allergy Rash/Hives Verified 05/21/22 13:55 Physical Exam Vitals: Vital Signs Temp Pulse Pulse Resp BP Pulse Ox 05/23/22 12:24 70 05/23/22 12:11 95 05/23/22 12:10 66 05/23/22 11:06 98 F 69 18 158/68 93 L 05/23/22 08:02 79 05/23/22 07:53 78 99 05/23/22 05:00 98 F 74 16 100/40 99 05/22/22 19:52 82 05/22/22 19:42 89 05/22/22 19:23 98.5 F 88 16 105/61 97 05/22/22 16:41 84 Intake and Output 05/23/22 05/23/22 05/23/22 06:59 14:59 22:59 Output Total 450 Balance -450 Output: Urine 450 Other: Voiding Method External Catheter Weight 108 kg GENERAL DESCRIPTION: Elderly female lying in bed, no distress. No tachypnea or accessory muscle of respiration use. HEENT: Shows Pallor , no scleral icterus. Oral mucous membrane is dry. No pharyngeal erythema or thrush NECK: Trachea central, no thyromegaly. LUNGS: Unlabored breathing. Clear to auscultation anteriorly. No wheeze or crackle. HEART: S1, S2, regular rate and rhythm. No loud murmur ABDOMEN: Soft, no tenderness , guarding or rigidity, no organomegaly EXTREMITIES: No edema of feet. SKIN: No rash, no masses palpable. NEUROLOGICAL: The patient is awake, alert, oriented x3, mood and affect normal. Results CBC & Chem 7: 05/24/22 05:47 05/24/22 05:47 Labs: Abnormal Lab Results - Last 24 Hours (Table) 05/22/22 05/23/22 Range/Units 20:11 05:52 Sodium 134 L (135-145) mmol/L Carbon Dioxide 27.9 H (20.0-27.5) mmol/L Anion Gap 8.10 L (10.00-18.00) mmol/L Est GFR (CKD-EPI)NonAf 58.7 L (60.0-200.0) BUN/Creatinine Ratio 25.11 H (12.00-20.00) Ratio POC Glucose (mg/dL) 127 H (70-110) mg/dL Calcium 8.1 L (8.7-10.3) mg/dL Microbiology - Last 24 Hours (Table) 05/21/22 09:13 Urine Culture - Final Urine,Voided Providencia stuartii Enterococcus faecalis 05/21/22 09:13 Blood Culture - Preliminary Blood No Growth after 48 hours Assessment and Plan (1) UTI (urinary tract infection) Status: Acute Code(s): N39.0 - URINARY TRACT INFECTION, SITE NOT SPECIFIED SNOMED Code(s): 75577546 Plan: 1patient presented to the hospital with generalized weakness no energy in this patient did have a urinary symptoms of burning and suprapubic discomfort with a positive UA concerning for a symptomatic UTI with urine culture positive for providentia and Enterococcus faecalis 2-patient with a penicillin allergy however has tolerated Unasyn in clinic [place] penicillin allergy 3-patient to continue with Unasyn will monitor clinical course closely and if continue to improve to finish therapy with oral Augmentin We will follow on clinical condition and cultures to further adjust medication if needed Thank you for this consultation will follow this patient along with you Time with Patient: Greater than 30
[2022-05-24] MEDS: AMPICILLIN-SULBACTAM 3 GM in SODIUM CHLORIDE 0.9% 100 ML IVPB SCH ×2 (00:19→09:24)
[2022-05-24 06:09] LABS: Anisocytosis Slight; Basophils % (A) 1 %; Eosinophils # (A) 0.4 k/uL (0-0.7); Eosinophils % (A) 7 %; HCT 25.3 % (34.0-46.0); Hypochromasia Moderate; Lymphocytes # (A) 1.9 k/uL (1.0-4.8); Lymphocytes % (A) 33 %; MCH 26.9 pg (25.0-35.0); MCHC 31.2 g/dL (31.0-37.0); MCV 86.4 fL (80.0-100.0); Mean Platelet Volume 8.3; Monocytes # (A) 0.5 k/uL (0-1.0); Monocytes % (A) 8 %; Neutrophils # (A) 2.7 k/uL (1.3-7.7); Neutrophils % (A) 48 %; Platelet Count 203 k/uL (150-450); RBC 2.93 m/uL (3.80-5.40); RDW 18.1 % (11.5-15.5); WBC 5.6 k/uL (3.8-10.6)
[2022-05-24 06:12] LABS: HGB 7.9 gm/dL (11.4-16.0)
[2022-05-24 07:02] LABS: Glucose,Whole Blood 127 mg/dL (70-110)
[2022-05-24] MEDS: INSULIN ASPART (NovoLOG) 100 UNIT/ML VIAL SQ SCH ×2 (09:16→13:28)
[2022-05-24] MEDS: FUROSEMIDE 40 MG TAB PO SCH (09:17)
[2022-05-24] MEDS: CYANOCOBALAMIN 500 MCG TAB PO SCH (09:17)
[2022-05-24] MEDS: METOPROLOL TARTRATE 25 MG TAB PO SCH (09:17)
[2022-05-24] MEDS: TAMSULOSIN 0.4 MG CAP.ER.24H PO SCH (09:17)
[2022-05-24] MEDS: LEVOTHYROXINE 50 MCG TAB PO SCH (09:18)
[2022-05-24] MEDS: GABAPENTIN 300 MG CAP PO SCH (09:18)
[2022-05-24] MEDS: APIXABAN 2.5 MG TABLET PO SCH (09:18)
[2022-05-24] MEDS: AMIODARONE 200 MG TAB PO SCH (09:18)
[2022-05-24] MEDS: HYDROcodone/APAP 5-325MG 1 EACH TAB PO PRN (09:33)
[2022-05-24] MEDS: SYMBICORT 80-4.5 MCG INHALER INHALATION SCH (09:34)
[2022-05-24] MEDS: IPRATROPIUM-ALBUTEROL 3 ML NEB INHALATION SCH ×2 (09:34→13:39)
[2022-05-24 11:45] LABS: African American GFR (CKD) 55.2 (60.0-200.0); Anion Gap 13.8 mmol/L (10.00-18.00); BUN/Creat Ratio 17.01 Ratio (12.00-20.00); Blood Urea Nitrogen 18.2 mg/dL (9.0-27.0); Calcium 8.2 mg/dL (8.7-10.3); Carbon Dioxide 24.5 mmol/L (20.0-27.5); Non-African American GFR(CKD) 47.6 (60.0-200.0); Potassium 4.7 mmol/L (3.5-5.5)
[2022-05-24 11:49] LABS: Glucose,Whole Blood 143 mg/dL (70-110)
[2022-05-24 11:53] VITALS: BP 129/66; TEMP 98.5
--- NOTE | 2022-05-24 13:24 | P.DS ---
Providers Date of admission: 05/21/22 11:28 Expected date of discharge: 05/24/22 Attending physician: Дмитрий Montoya Consults: 05/23/22 11:35 Consult Physician Routine Consulting Provider: Santana Laura Consult Reason/Comments: UTI, recurrent Do you want consulting provider notified?: Yes Primary care physician: Phan Hartman - Rikki Diagnosis(es) (1) Gravely disabled Current Visit: Yes Status: Acute (2) Urinary tract infection Current Visit: Yes Status: Acute (3) Acquired hypothyroidism Current Visit: No Status: Acute (4) Acute exacerbation of chronic obstructive pulmonary disease Current Visit: No Status: Acute (5) Acute on chronic diastolic (congestive) heart failure Current Visit: No Status: Acute (6) Altered mental status Current Visit: No Status: Acute (7) Anemia Current Visit: No Status: Acute (8) CAD (coronary atherosclerotic disease) Current Visit: No Status: Acute Hospital Course: 05/22/22 THis is a 86-year-old female with past medical history of COPD, CHF,aortic stenosis, coronary artery disease,chronic diastolic heart failure, chronic anemia, morbid obesity, recently discharged from [facility] subacute rehab on May, presented to the emergency department with altered mental status, weakness. On admission, VSS,maintaining O2 sats of 100% on room air, afebrile. Denies chest pain, palpitations or shortness of breath. Denies nausea vomiting or diarrhea. Denies abdominal pain. Denies syncope .Chest x- ray reported cardiomegaly, interstitial changes, correlate for CHF and pulmonary vascular congestion, additional patchy bibasilar infiltrates versus patchy pulm onary edema. Brain CT reported no acute abnormality. EKG reported atrial fibrillation. UA positive, culture pending. Received a dose of Lasix IV in the ER along with empiric antibiotics initiated. Afebrile, normal WBC. Sodium 127, BUN 47 and creatinine 1.17 on admission, currently on gentle IV fluid hydration with sodium currently 134, BUN 34 and creatinine improved to 0.95. 05/23/2022 preliminary urine culture reporting preliminary culture reporting Providencia stuartii, group D enterococcus, antibiotics adjusted. Afebrile Much more alert today, conversing fluently. Denies chest pain, palpitations, shortness of breath. Denies nausea vomiting or diarrhea. Denies abdominal pain. Evaluated by PT, patient is a 2 person assist, recommending subacute rehab. May 24, 2022: patient remains on IV unison. She is much more conversant and feels back to normal self. Staff were able to get her up with one person transfer. She is scheduled to go to [facility] today. Infections disease notes were reviewed and will plan on the oral anabiotic's and recommend it. I will see you there myself in the next several days. Patient Condition at Discharge: Fair Plan - Discharge Summary Discharge Rx Participant: Yes New Discharge Prescriptions: New Ipratropium-Albuterol Nebulize [Duoneb 0.5 mg-3 mg/3 ml Soln] 3 ml INHALATION RT-QID 30 Days #90 each INSULIN ASPART (NovoLOG) [NovoLOG (formulary)] 0 unit SQ ACHS each Acetaminophen Tab [Tylenol] 650 mg PO Q6HR PRN tab PRN Reason: Mild Pain Or Fever > 100.5 Amoxic-Pot Clav 875-125Mg [Augmentin 875-125] 1 tab PO Q12HR 1 Days #14 tab Continue Nitroglycerin Sl Tabs [Nitrostat] 0.4 mg SL Q5M PRN PRN Reason: Chest Pain Atorvastatin Calcium [Lipitor] 40 mg PO HS #1 tab Levothyroxine Sodium [Synthroid] 50 mcg PO AC-BRKFST Cyanocobalamin [Vitamin B-12 Injection] 1,000 mcg SQ Q30D Fluticasone/Umeclidin/Vilanter [Trelegy Ellipta 100-62.5-25] 1 puff INHALATION RT-HS Amitriptyline HCl [Elavil] 100 mg PO HS Tamsulosin [Flomax] 0.4 mg PO PC-BRKFST cap Furosemide [Lasix] 40 mg PO DAILY tab Metoprolol Tartrate [Lopressor] 25 mg PO BID tab Amiodarone [Cordarone] 200 mg PO DAILY #90 tab HYDROcodone/APAP 5-325MG [[place] 5-325] 1 tab PO Q6H PRN PRN Reason: Pain Apixaban [Eliquis] 2.5 mg PO BID Gloria Root 550mg 1 tab PO DAILY Cyanocobalamin (Vitamin B-12) [Vitamin B-12] 1,000 mcg PO DAILY Gabapentin 300 mg PO TID #9 cap Calcium Carbonate [Tums] 1,000 mg PO QID PRN tab PRN Reason: Heartburn Insulin Lispro [humaLOG Kwikpen] See Protocol SQ ACHS Discontinued Albuterol Nebulized [Ventolin Nebulized] 2.5 mg INHALATION RT-QID PRN PRN Reason: Shortness Of Breath Discharge Medication List Nitroglycerin Sl Tabs [Nitrostat] 0.4 mg SL Q5M PRN 07/20/15 [History] Atorvastatin Calcium [Lipitor] 40 mg PO HS #1 tab 08/04/15 [Rx] Cyanocobalamin [Vitamin B-12 Injection] 1,000 mcg SQ Q30D 07/06/19 [History] Levothyroxine Sodium [Synthroid] 50 mcg PO AC-BRKFST 07/06/19 [History] Fluticasone/Umeclidin/Vilanter [Trelegy Ellipta 100-62.5-25] 1 puff INHALATION RT-HS 10/15/21 [History] Apixaban [Eliquis] 2.5 mg PO BID 12/09/21 [History] Amitriptyline HCl [Elavil] 100 mg PO HS 03/13/22 [History] Cyanocobalamin (Vitamin B-12) [Vitamin B-12] 1,000 mcg PO DAILY 03/13/22 [History] Gloria Root 550mg 1 tab PO DAILY 03/13/22 [History] Gabapentin 300 mg PO TID #9 cap 04/04/22 [Rx] Calcium Carbonate [Tums] 1,000 mg PO QID PRN tab 04/13/22 [Rx] Furosemide [Lasix] 40 mg PO DAILY tab 04/13/22 [Rx] Tamsulosin [Flomax] 0.4 mg PO PC-BRKFST cap 04/13/22 [Rx] Amiodarone [Cordarone] 200 mg PO DAILY #90 tab 04/14/22 [Rx] Metoprolol Tartrate [Lopressor] 25 mg PO BID tab 04/14/22 [Rx] HYDROcodone/APAP 5-325MG [[place] 5-325] 1 tab PO Q6H PRN 05/21/22 [History] Insulin Lispro [humaLOG Kwikpen] See Protocol SQ ACHS 05/21/22 [History] Acetaminophen Tab [Tylenol] 650 mg PO Q6HR PRN tab 11/23/22 [Rx] Amoxic-Pot Clav 875-125Mg [Augmentin 875-125] 1 tab PO Q12HR 1 Days #14 tab 05/24/22 [Rx] INSULIN ASPART (NovoLOG) [NovoLOG (formulary)] 0 unit SQ ACHS each 05/24/22 [Rx] Ipratropium-Albuterol Nebulize [Duoneb 0.5 mg-3 mg/3 ml Soln] 3 ml INHALATION RT-QID 30 Days #90 each 05/24/22 [Rx] Follow up Appointment(s)/Referral(s): Дмитрий Montoya MD [STAFF PHYSICIAN] - 1 Week Activity/Diet/Wound Care/Special Instructions: ANU: CBC,BMP in 3 days Discharge Disposition: TRANSFER TO SNF/ECF
[2022-05-24] MEDS: SODIUM CHLORIDE 0.9% 1,000 ML IV SCH (13:28)
[2022-05-24 13:43] VITALS: PULSE 66
--- NOTE | 2022-05-24 14:04 | P.PN ---
Subjective Progress Note Date: 05/24/22 Principal diagnosis: Enterococcus urinary tract infection Patient is a 86-year-old female with multiple comorbidity present to the hospital mental status changes weakness patient did have a positive UA urinary symptoms concerning for a symptomatic UTI urine culture positive for Enterococcus faecalis and providencia. On today's evaluation that is 05/24/2022 the patient denies having any fever or any chills the patient is more awake alert she is breathing comfortably on room air no chest pain shortness of breath or cough no nausea vomiting no abdominal pain no diarrhea Objective - Vital Signs Vital signs: Vital Signs Temp 98.5 F 05/24/22 11:52 Pulse 78 05/24/22 11:52 Resp 16 05/24/22 11:52 BP 129/66 05/24/22 11:52 Pulse Ox 99 05/24/22 11:52 FiO2 21 05/24/22 09:35 Intake & Output 05/23/22 05/24/22 05/24/22 18:59 06:59 18:59 Output Total 1000 1600 Balance -1000 -1600 Weight 107.5 kg Output: Urine 1000 1600 Other: Voiding Method External Catheter External Catheter External Catheter # Voids 0 # Bowel Movements 0 - Exam GENERAL DESCRIPTION elderly female lying in bed, no distress. No tachypnea or accessory muscle of respiration use. LUNGS: Unlabored breathing. Decreased breath sound at the base HEART: S1, S2, regular rate and rhythm. No loud murmur ABDOMEN: Soft, no tenderness , guarding or rigidity, no organomegaly EXTREMITIES: No edema of feet. - Labs CBC & Chem 7: 05/24/22 05:47 05/24/22 05:47 Labs: Abnormal Lab Results - Last 24 Hours (Table) 05/23/22 05/23/22 05/24/22 Range/Units 16:58 20:55 05:47 RBC 2.93 L (3.80-5.40) m/uL Hgb 7.9 L D (11.4-16.0) gm/dL Hct 25.3 L (34.0-46.0) % RDW 18.1 H (11.5-15.5) % Sodium (135-145) mmol/L Chloride (96-109) mmol/L Est GFR (CKD-EPI)AfAm (60.0-200.0) Est GFR (CKD-EPI)NonAf (60.0-200.0) Glucose (70-110) mg/dL POC Glucose (mg/dL) 187 H 136 H (70-110) mg/dL Calcium (8.7-10.3) mg/dL 05/24/22 05/24/22 05/24/22 Range/Units 05:47 07:00 11:47 RBC (3.80-5.40) m/uL Hgb (11.4-16.0) gm/dL Hct (34.0-46.0) % RDW (11.5-15.5) % Sodium 133 L (135-145) mmol/L Chloride 95 L (96-109) mmol/L Est GFR (CKD-EPI)AfAm 55.2 L (60.0-200.0) Est GFR (CKD-EPI)NonAf 47.6 L (60.0-200.0) Glucose 119 H (70-110) mg/dL POC Glucose (mg/dL) 127 H 143 H (70-110) mg/dL Calcium 8.2 L (8.7-10.3) mg/dL Microbiology - Last 24 Hours (Table) 05/21/22 09:13 Blood Culture - Preliminary Blood No Growth after 72 hours 05/21/22 09:13 Urine Culture - Final Urine,Voided Providencia stuartii Enterococcus faecalis Assessment and Plan (1) Urinary tract infection Current Visit: Yes Status: Acute Code(s): N39.0 - URINARY TRACT INFECTION, SITE NOT SPECIFIED SNOMED Code(s): 06774813 Plan: 1patient presented to the hospital with generalized weakness no energy in this patient did have a urinary symptoms of burning and suprapubic discomfort with a positive UA concerning for a symptomatic UTI with urine culture positive for providentia and Enterococcus faecalis 2-patient with a penicillin allergy however has tolerated Unasyn , Clinically doubt true penicillin allergy and should be taken off her chart 3-Patient has shown clinical improvement with the Unasyn with a plan to finish therapy with oral Augmentin and close outpatient follow-up Time with Patient: Less than 30
--- NOTE | 2022-05-24 14:38 | CDI ---
Documentation Clarification Form Date: 05/24/2022 02:27:19 PM From: Swetha Rodriguez CCS, CCDS Admit Date: 05/21/2022 11:28:00 AM Patient Name: Concepcion Newberry Visit Number: [id number] Discharge Date: ATTENTION: The Clinical Documentation Specialists (CDI) and [facility] Coding Staff appreciate your assistance in clarifying documentation. Please respond to the clarification below the line at the bottom and electronically sign. The CDI & [facility] Coding staff will review the response and follow-up if needed. Please note: Queries are made part of the Legal Health Record. If you have any questions, please contact the author of this message via ITS. Dr. Дмитрий Montoya: CKD is documented in the 05/22 H/P and the 05/23 Infectious Disease Consult without further specificity or stage. Additional clarification regarding the stage of CKD is requested. History/Risk Factors per the 05/22 H/P: CHF, COPD, CVA/TIA, DM, Hyperlipidemia, Hypertension, Osteoarthritis, Sleep Apnea, Hypothyroid, Peripheral Neuropathy in feet & hands, Chronic low back pain, Leg edema, Gastritis, Anemia, Aortic stenosis, Chronic Renal Failure, UTI ESBL, Former smoker. Clinical Indicators: Presented to the ED on 05/21 from home via EMS with Weakness, Altered mental status and a UTI. Admit with UTI and Gravely disabled. LAB: BUN: 05/21: 47. 05/22: 34. 05/23: 22.6. 05/24: 18.2. Creatinine: 05/21: 1.17. 05/22: 0.95. 05/23: 0.9. 05/24: 1.1 GFR: 05/21: 43. 05/22: 56. 05/23: 58.7. 05/24 47.6. Historical GFR: 04/01/2022: 27.2. 03/13/2022: 34. 12/09/2021: 39. Treatment 05/21: Blood culture, Heart Healthy diet, IV Rocephin, po Tylenol, IV Lasix 20 mg x1, INH Ventolin QID/prn, po Tums QID, Nitro sl q5M/prn, IV Dextrose 25 ml per protocol prn, po Eliquis 2.5 mg BID, Lipitor 40 mg bharath, po Lopressor 25 mg BID. Please clarify the stage of the CKD, if known: [ ] CKD Stage 3 (GFR 30-59) [ ] CKD Stage 3a (GFR 45-59) [ ] CKD Stage 3b (GFR 30-44) [ ] CKD Stage 4 (GFR 15-29) [ ] Other, please specify: [ ] Unable to determine (Template Last revised: August 2020) This is for Dr. Montoya Sent to the wrong physician Please send to Dr. Montoya instead MTDD
--- NOTE | 2022-05-26 08:46 | CDI ---
Documentation Clarification Form Date: 05/24/2022 02:27:00 PM From: Swetha Rodriguez CCS, CCDS Admit Date: 05/21/2022 11:28:00 AM Patient Name: Concepcion Newberry Visit Number: [id number] Discharge Date: 05/24/2022 02:30:00 PM ATTENTION: The Clinical Documentation Specialists (CDI) and [facility] Coding Staff appreciate your assistance in clarifying documentation. Please respond to the clarification below the line at the bottom and electronically sign. The CDI & [facility] Coding staff will review the response and follow-up if needed. Please note: Queries are made part of the Legal Health Record. If you have any questions, please contact the author of this message via ITS. Dr. Дмитрий Montoya: CKD is documented in the 05/22 H/P and the 05/23 Infectious Disease Consult without further specificity or stage. Additional clarification regarding the stage of CKD is requested. History/Risk Factors per the 05/22 H/P: CHF, COPD, CVA/TIA, DM, Hyperlipidemia, Hypertension, Osteoarthritis, Sleep Apnea, Hypothyroid, Peripheral Neuropathy in feet & hands, Chronic low back pain, Leg edema, Gastritis, Anemia, Aortic stenosis, Chronic Renal Failure, UTI ESBL, Former smoker. Clinical Indicators: Presented to the ED on 05/21 from home via EMS with Weakness, Altered mental status and a UTI. Admit with UTI and Gravely disabled. LAB: BUN: 05/21: 47. 05/22: 34. 05/23: 22.6. 05/24: 18.2. Creatinine: 05/21: 1.17. 05/22: 0.95. 05/23: 0.9. 05/24: 1.1 GFR: 05/21: 43. 05/22: 56. 05/23: 58.7. 05/24 47.6. Historical GFR: 04/01/2022: 27.2. 03/13/2022: 34. 12/09/2021: 39. Treatment 05/21: Blood culture, Heart Healthy diet, IV Rocephin, po Tylenol, IV Lasix 20 mg x1, INH Ventolin QID/prn, po Tums QID, Nitro sl q5M/prn, IV Dextrose 25 ml per protocol prn, po Eliquis 2.5 mg BID, Lipitor 40 mg bharath, po Lopressor 25 mg BID. Please clarify the stage of the CKD, if known: [ ] CKD Stage 3 (GFR 30-59) [X ] CKD Stage 3a (GFR 45-59) [ ] CKD Stage 3b (GFR 30-44) [ ] CKD Stage 4 (GFR 15-29) [ ] Other, please specify: [ ] Unable to determine (Template Last revised: August 2020) MTDD
== END 2022-05-24 14:30 ==
LOC: EC 08:21 → 5NMEDONC 11:28 → INTOOBSV 11:28 → 5NMEDONC 13:44 → UNDODISIN 05-24 14:30
PROVIDERS: ADMIT Family Medicine; ATTEND Family Medicine
DX: N39.0 Urinary tract infection, site not specified (principal); G93.41 Metabolic encephalopathy; I50.33 Acute on chronic diastolic (congestive) heart failure; I13.0 Hypertensive heart and chronic kidney disease with heart failure and stage 1 through stage 4 chronic kidney disease, or unspecified chronic kidney disease; E11.22 Type 2 diabetes mellitus with diabetic chronic kidney disease; J44.1 Chronic obstructive pulmonary disease with (acute) exacerbation; B95.2 Enterococcus as the cause of diseases classified elsewhere; N18.31 Chronic kidney disease, stage 3a; I48.0 Paroxysmal atrial fibrillation; D63.1 Anemia in chronic kidney disease; M19.90 Unspecified osteoarthritis, unspecified site; E03.9 Hypothyroidism, unspecified; E78.5 Hyperlipidemia, unspecified; I35.0 Nonrheumatic aortic (valve) stenosis; E11.42 Type 2 diabetes mellitus with diabetic polyneuropathy; R53.81 Other malaise; E66.01 Morbid (severe) obesity due to excess calories; Z68.41 Body mass index [BMI] 40.0-44.9, adult; G89.29 Other chronic pain; M54.50 Low back pain, unspecified; I25.10 Atherosclerotic heart disease of native coronary artery without angina pectoris; I25.2 Old myocardial infarction; Z16.12 Extended spectrum beta lactamase (ESBL) resistance; Z20.822 Contact with and (suspected) exposure to COVID-19; Z79.4 Long term (current) use of insulin; Z79.01 Long term (current) use of anticoagulants; Z79.51 Long term (current) use of inhaled steroids; Z79.890 Hormone replacement therapy; Z79.899 Other long term (current) drug therapy; Z88.0 Allergy status to penicillin; Z98.1 Arthrodesis status; Z87.891 Personal history of nicotine dependence; Z86.73 Personal history of transient ischemic attack (TIA), and cerebral infarction without residual deficits; Z95.5 Presence of coronary angioplasty implant and graft; Z96.653 Presence of artificial knee joint, bilateral; Z98.42 Cataract extraction status, left eye; Z98.41 Cataract extraction status, right eye; Z98.890 Other specified postprocedural states; Z82.49 Family history of ischemic heart disease and other diseases of the circulatory system; Z82.3 Family history of stroke
CPT/HCPCS: 96365; 96366 ×3; 96367; 96376; 96375; 99291; 36415; 94640 ×6; 94760 ×2; 93005; 97163; 97167; 80053; 80048 ×3; 83605; 83735; 84443; 84484; 85025 ×2; 85027; 85610; 85730; 81001; 87040; 87086; 87077; 87186; 83036; 87636; 71045; 70450; G0378 ×4; J1940; J0696 ×2; J0295 ×2; 96374

== ENCOUNTER 2022-06-20 13:28 | Inpatient (IN) | payer MEDICARE ==
--- NOTE | 2022-06-20 13:52 | ED ---
General Adult HPI - General Source: EMS Mode of arrival: EMS Limitations: no limitations <Joel Mayorga Trevin - Last Filed: 06/20/22 15:15> <Chioma Anderson Katina - Last Filed: 06/21/22 19:58> - General Chief complaint: Fall Stated complaint: fall Time Seen by Provider: 06/20/22 13:33 - History of Present Illness Initial comments: Dictation was produced using hulu dictation software. please excuse any grammatical, word or spelling errors. Chief Complaint: 86-year-old female presents emergency department after fall History of Present Illness: Patient is an 86-year-old female multiple comorbidities. She was at the breakfast table sitting down when she stood up. She was helped to get up by her who is her primary senior strategy manager. She fell. patient's is at the bedside. Patient's daughter is at the bedside. Patient states she has no complaints at this time. She did suffer a laceration to her right medial ankle. She brought in by EMS for further care. Patient states she's been feeling weak. Daughter also reports that patient seems to be a lot more less active than usual. Daughter is concerned that patient has another UTI. Patient has multiple cardiac comorbidities. Patient complains of back pain however states her back pain is from a pressure ulcer. Patient has had a cough and some shortness of breath over the last 2-3 days. The ROS documented in this emergency department record has been reviewed and confirmed by me. Those systems with pertinent positive or negative responses have been documented in the HPI. All other systems are other negative and/or noncontributory. PHYSICAL EXAM: General Impression: Alert and oriented x3, not in acute distress HEENT: Normocephalic atraumatic, extra-ocular movements intact, pupils equal and reactive to light bilaterally, mucous membranes moist. Cardiovascular: Heart regular rate and rhythm Chest: Able to complete full sentences, no retractions, no tachypnea, diffuse crackles Abdomen: abdomen soft, non-tender, non-distended, no organomegaly Musculoskeletal: Pulses present and equal in all extremities, no peripheral edema Motor: no focal deficits noted Neurological: CN II-XII grossly intact, no focal motor or sensory deficits noted Skin: Intact with no visualized rashes, 3 cm laceration to the medial right ankle Psych: Normal affect and mood ED course: year-old female presents emergency department after presyncope/syncope and fall. Patient had a episode concerning for orthostatic syncope. She does have multiple risk factors for syncope. Vital signs upon arrival are within acceptable limits. Nursing notes and chart review was performed My EKG interpretation: Ventricular rate 55, sinus bradycardia,. Interval 92, QRS 97, QTC 421. No MD prolongation, no QTC prolongation, no ST or T-wave changes noted. Overall, this EKG is unremarkable Laceration was repaired at bedside. Chest x-ray, ankle x-ray pelvis x-ray obtained. Pelvis x-ray shows perhaps a deformity at the right greater trochanter. Those perhaps pneumonia. Patient is given a dose of IV antibiotics. She has pain to bilateral hips. On physical examination patient does not have worse pain on her right than the left. Computed tomography scan of brain is unremarkable. Laboratory evaluation obtained. CBC, coag panel is unremarkable. Potassium is measured at 6.4. I do not believe that this is a true hyperkalemia. Repeat potassium sent. Rest of labs within acceptable limits. Case was discussed with Dr. Montoya was very familiar with the patient. Dr. Montoya request that patient be discharged follow-up with the office later this week. I did report Dr. Montoya's recommendations to patient and family member. Dr. Montoya states that patient just got out of rehab and is likely deconditioned. Patient and family is not satisfied with that disposition because they're worried she is a fall risk. She had fallen twice. Discussed with family that we will recheck a potassium level and assess her functional status before recontacting Dr. Montoya to determine final disposition. Patient care signed out to Dr. Anderson at 3:00 PM (Joel Mayorga) - Related Data Home Medications Medication Instructions Recorded Confirmed Nitroglycerin Sl Tabs [Nitrostat] 0.4 mg SL Q5M PRN 07/20/15 06/20/22 Cyanocobalamin [Vitamin B-12 1,000 mcg SQ Q30D 07/06/19 06/20/22 Injection] Levothyroxine Sodium [Synthroid] 50 mcg PO AC-BRKFST 07/06/19 06/20/22 Fluticasone/Umeclidin/Vilanter 1 puff INHALATION RT-HS 10/15/21 06/20/22 [Trelegy Ellipta 100-62.5-25] Apixaban [Eliquis] 2.5 mg PO BID 12/09/21 06/20/22 Amitriptyline HCl [Elavil] 100 mg PO HS 03/13/22 06/20/22 Cyanocobalamin (Vitamin B-12) 1,000 mcg PO DAILY 03/13/22 06/20/22 [Vitamin B-12] Gloria Root 550mg 1 tab PO DAILY 03/13/22 06/20/22 HYDROcodone/APAP 5-325MG [Holland 1 tab PO Q6H PRN 05/21/22 06/20/22 5-325] Insulin Lispro [humaLOG Kwikpen] See Protocol SQ ACHS PRN 05/21/22 06/20/22 Previous Rx's Medication Instructions Recorded Atorvastatin Calcium [Lipitor] 40 mg PO HS #1 tab 08/04/15 Gabapentin 300 mg PO TID #9 cap 04/04/22 Calcium Carbonate [Tums] 1,000 mg PO QID PRN tab 04/13/22 Furosemide [Lasix] 40 mg PO DAILY tab 04/13/22 Tamsulosin [Flomax] 0.4 mg PO PC-BRKFST cap 04/13/22 Amiodarone [Cordarone] 200 mg PO DAILY #90 tab 04/14/22 Metoprolol Tartrate [Lopressor] 25 mg PO BID tab 04/14/22 Allergies Allergy/AdvReac Type Severity Reaction Status Date / Time Penicillins Allergy Rash/Hives Verified 05/21/22 13:55 Review of Systems ROS Other: All systems not noted in ROS Statement are negative. <Joel Mayorga - Last Filed: 06/20/22 15:15> ROS Other: All systems not noted in ROS Statement are negative. <Chioma Anderson - Last Filed: 06/21/22 19:58> ROS Statement: Those systems with pertinent positive or pertinent negative responses have been documented in the HPI. Past Medical History Past Medical History: Chest Pain / Angina, Heart Failure, COPD, CVA/TIA, Diabetes Mellitus, Hyperlipidemia, Hypertension, Osteoarthritis (OA), Renal Disease, Sleep Apnea/CPAP/BIPAP, Thyroid Disorder Additional Past Medical History / Comment(s): Using a wheelchair or a walker, bilateral peripheral neuropathy in feet and hands, chronic low back pain, lower leg edema, gastritis, anemia, aortic stenosis, chronic renal failure, hemorrhoids Last Myocardial Infarction Date:: 06/17/18 History of Any Multi-Drug Resistant Organisms: ESBL Date of last positivie culture/infection: 09/06/17 MDRO Source:: ESBL URINE Past Surgical History: Back Surgery, Heart Catheterization, Heart Catheterization With Stent, Joint Replacement, Orthopedic Surgery Additional Past Surgical History / Comment(s): Lumbar laminectomy decompression fusion L3-4 and L5-S1 with cell saver, lumbar instrumentation removal L4-5, L4- L5 laminectomy, BILATERAL KNEE REPLACEMENTS, ORIF RIGHT ANKLE, CERVICAL FUSION, bilateral rotator cuff repair, bilateral wrist carpal tunnel releases, pain procedures, left breast lumpectomy-benign, bilateral varicose vein stripping, bilateral cataracts, heart cath with 5 stents august 2021, egd/colonoscopy Past Anesthesia/Blood Transfusion Reactions: No Reported Reaction Additional Past Anesthesia/Blood Transfusion Reaction / Comment(s): blood tra nsfusion 04/01/[address] estrella's notes last hospital stay Date of Last Stent Placement:: 08/30/2021 Past Psychological History: No Psychological Hx Reported Smoking Status: Former smoker Past Alcohol Use History: None Reported Past Drug Use History: None Reported - Past Family History Father Family Medical History: Myocardial Infarction (ID) Additional Family Medical History / Comment(s): Father at 40 of a ID. Mother Family Medical History: CVA/TIA Additional Family Medical History / Comment(s): Mother had a CVA <Joel Mayorga - Last Filed: 06/20/22 15:15> General Exam Limitations: no limitations <Joel Mayorga - Last Filed: 06/20/22 15:15> Course Vital Signs 06/20/22 06/20/22 06/20/22 13:30 19:30 20:00 Temperature 97.8 F Pulse Rate 56 L 55 L 60 Respiratory 18 20 22 Rate Blood Pressure 124/54 102/76 135/59 O2 Sat by Pulse 92 L Oximetry 06/20/22 06/20/22 06/20/22 20:17 20:30 20:49 Temperature Pulse Rate 59 L 60 60 Respiratory 15 14 18 Rate Blood Pressure 135/59 135/59 128/56 O2 Sat by Pulse 97 Oximetry 06/20/22 06/20/22 06/20/22 21:00 21:30 22:00 Temperature Pulse Rate 59 L 56 L 56 L Respiratory 14 14 18 Rate Blood Pressure 128/56 120/60 120/60 O2 Sat by Pulse Oximetry 06/20/22 06/20/22 06/21/22 23:00 23:30 00:00 Temperature Pulse Rate 57 L 59 L 59 L Respiratory 41 H 18 15 Rate Blood Pressure 124/112 44/33 O2 Sat by Pulse Oximetry 06/21/22 06/21/22 06/21/22 00:30 01:00 01:30 Temperature Pulse Rate 56 L 53 L 54 L Respiratory 12 12 10 L Rate Blood Pressure O2 Sat by Pulse Oximetry 06/21/22 06/21/22 06/21/22 02:00 07:19 07:23 Temperature Pulse Rate 58 L 65 63 Respiratory 18 18 17 Rate Blood Pressure 107/57 122/43 122/43 O2 Sat by Pulse 97 96 Oximetry 06/21/22 06/21/22 06/21/22 08:00 08:26 09:00 Temperature Pulse Rate 65 70 Respiratory 18 18 Rate Blood Pressure 120/43 108/45 O2 Sat by Pulse 99 97 97 Oximetry 06/21/22 06/21/22 10:00 15:08 Temperature Pulse Rate 67 74 Respiratory 18 16 Rate Blood Pressure 122/53 136/45 O2 Sat by Pulse 98 98 Oximetry Procedures - Laceration Laceration #1 Consent Obtained: verbal consent Indication: laceration Site: lower extremity, other (medial ankle) Description: linear Depth: simple, single layer (3 cm) Anesthetic Used: lidocaine 1% Anesthesia Technique: local infiltration Type of Sutures: nylon Size of Sutures: 4-0 Number of Sutures: 1 Technique: running Patient Tolerated Procedure: well <Joel Mayorga - Last Filed: 06/20/22 15:15> Medical Decision Making - Lab Data Result diagrams: 06/20/22 14:08 06/20/22 14:08 <Joel Mayorga - Last Filed: 06/20/22 15:15> - Lab Data Result diagrams: 06/21/22 05:40 06/21/22 16:20 <Chioma Anderson - Last Filed: 06/21/22 19:58> - Medical Decision Making The patient was signed out to me. I did evaluate her myself. She has not had any urine output. Patient bladder scanned and found to have 650 mL of urine in her bladder. Hylton catheter was placed. I reviewed the patient's laboratory studies which demonstrates a potassium of 6.4. We did send a repeat which comes back at 7. I did order her 10 units of insulin, 15 mg of albuterol and an amp of dextrose. Potassium will be repeated at 9 PM. Urinalysis does demonstrate moderate bacteria with rare sediment. She had been given a gram of Rocephin and 500 mg of azithromycin for her pneumonia. Patient is Covid positive. I called Dr. Montoya who was agreeable to admit the patient. She is currently awaiting a bed on the floor in stable condition. (Chioma Anderson) - Lab Data Lab Results 06/20/22 06/20/22 06/20/22 Range/Units 14:08 14:08 14:08 WBC 6.8 (3.8-10.6) k/uL RBC 3.64 L (3.80-5.40) m/uL Hgb 10.3 L (11.4-16.0) gm/dL Hct 32.9 L (34.0-46.0) % MCV 90.6 (80.0-100.0) fL MCH 28.4 (25.0-35.0) pg MCHC 31.3 (31.0-37.0) g/dL RDW 16.5 H (11.5-15.5) % Plt Count 228 (150-450) k/uL MPV 8.4 Neutrophils % 68 % Lymphocytes % 22 % Monocytes % 7 % Eosinophils % 1 % Basophils % 1 % Neutrophils # 4.6 (1.3-7.7) k/uL Lymphocytes # 1.5 (1.0-4.8) k/uL Monocytes # 0.5 (0-1.0) k/uL Eosinophils # 0.1 (0-0.7) k/uL Basophils # 0.0 (0-0.2) k/uL Hypochromasia Marked Anisocytosis Slight PT 10.1 (9.0-12.0) sec INR 1.0 (<1.2) APTT 30.8 H (22.0-30.0) sec Sodium (137-145) mmol/L Potassium (3.5-5.1) mmol/L Chloride (98-107) mmol/L Carbon Dioxide (22-30) mmol/L Anion Gap mmol/L BUN (7-17) mg/dL Creatinine (0.52-1.04) mg/dL Est GFR (CKD-EPI)AfAm (>60 ml/min/1.73 sqM) Est GFR (CKD-EPI)NonAf (>60 ml/min/1.73 sqM) Glucose (74-99) mg/dL POC Glucose (mg/dL) (70-110) mg/dL POC Glu Ekg Tech ID Plasma Lactic Acid Russel (0.7-2.0) mmol/L Calcium (8.4-10.2) mg/dL Magnesium (1.6-2.3) mg/dL Total Bilirubin (0.2-1.3) mg/dL AST (14-36) U/L ALT (4-34) U/L Alkaline Phosphatase (38-126) U/L Troponin I (0.000-0.034) ng/mL NT-Pro-B Natriuret Pep pg/mL Total Protein (6.3-8.2) g/dL Albumin (3.5-5.0) g/dL Urine Color Yellow Urine Appearance Cloudy H (Clear) Urine pH 5.0 (5.0-8.0) Ur Specific [place] 1.011 (1.001-1.035) Urine Protein Negative (Negative) Urine Glucose (UA) 3+ H (Negative) Urine Ketones Negative (Negative) Urine Blood Negative (Negative) Urine Nitrite Negative (Negative) Urine Bilirubin Negative (Negative) Urine Urobilinogen <2.0 (<2.0) mg/dL Ur Leukocyte Esterase Large H (Negative) Urine RBC 1 (0-5) /hpf Urine WBC 19 H (0-5) /hpf Urine WBC Clumps Few H (None) /hpf Ur Squamous Epith Cells 1 (0-4) /hpf Amorphous Sediment Rare H (None) /hpf Urine Bacteria Moderate H (None) /hpf Hyaline Casts 17 H (0-2) /lpf Urine Mucus Rare H (None) /hpf Influenza Type A (PCR) (Not Detectd) Influenza Type B (PCR) (Not Detectd) RSV (PCR) (Not Detectd) SARS-CoV-2 (PCR) (Not Detectd) 06/20/22 06/20/22 06/20/22 Range/Units 14:08 14:08 14:08 WBC (3.8-10.6) k/uL RBC (3.80-5.40) m/uL Hgb (11.4-16.0) gm/dL Hct (34.0-46.0) % MCV (80.0-100.0) fL MCH (25.0-35.0) pg MCHC (31.0-37.0) g/dL RDW (11.5-15.5) % Plt Count (150-450) k/uL MPV Neutrophils % % Lymphocytes % % Monocytes % % Eosinophils % % Basophils % % Neutrophils # (1.3-7.7) k/uL Lymphocytes # (1.0-4.8) k/uL Monocytes # (0-1.0) k/uL Eosinophils # (0-0.7) k/uL Basophils # (0-0.2) k/uL Hypochromasia Anisocytosis PT (9.0-12.0) sec INR (<1.2) APTT (22.0-30.0) sec Sodium 123 L (137-145) mmol/L Potassium 6.4 H* (3.5-5.1) mmol/L Chloride 91 L (98-107) mmol/L Carbon Dioxide 25 (22-30) mmol/L Anion Gap 7 mmol/L BUN 57 H (7-17) mg/dL Creatinine 1.74 H (0.52-1.04) mg/dL Est GFR (CKD-EPI)AfAm 31 (>60 ml/min/1.73 sqM) Est GFR (CKD-EPI)NonAf 27 (>60 ml/min/1.73 sqM) Glucose 113 H (74-99) mg/dL POC Glucose (mg/dL) (70-110) mg/dL POC Glu Ekg Tech ID Plasma Lactic Acid Russel 1.0 (0.7-2.0) mmol/L Calcium 7.4 L (8.4-10.2) mg/dL Magnesium 2.3 (1.6-2.3) mg/dL Total Bilirubin 0.4 (0.2-1.3) mg/dL AST 27 (14-36) U/L ALT 19 (4-34) U/L Alkaline Phosphatase 78 (38-126) U/L Troponin I <0.012 (0.000-0.034) ng/mL NT-Pro-B Natriuret Pep pg/mL Total Protein 6.3 (6.3-8.2) g/dL Albumin 3.7 (3.5-5.0) g/dL Urine Color Urine Appearance (Clear) Urine pH (5.0-8.0) Ur Specific [place] (1.001-1.035) Urine Protein (Negative) Urine Glucose (UA) (Negative) Urine Ketones (Negative) Urine Blood (Negative) Urine Nitrite (Negative) Urine Bilirubin (Negative) Urine Urobilinogen (<2.0) mg/dL Ur Leukocyte Esterase (Negative) Urine RBC (0-5) /hpf Urine WBC (0-5) /hpf Urine WBC Clumps (None) /hpf Ur Squamous Epith Cells (0-4) /hpf Amorphous Sediment (None) /hpf Urine Bacteria (None) /hpf Hyaline Casts (0-2) /lpf Urine Mucus (None) /hpf Influenza Type A (PCR) (Not Detectd) Influenza Type B (PCR) (Not Detectd) RSV (PCR) (Not Detectd) SARS-CoV-2 (PCR) (Not Detectd) 06/20/22 06/20/22 06/20/22 Range/Units 14:08 14:30 15:00 WBC (3.8-10.6) k/uL RBC (3.80-5.40) m/uL Hgb (11.4-16.0) gm/dL Hct (34.0-46.0) % MCV (80.0-100.0) fL MCH (25.0-35.0) pg MCHC (31.0-37.0) g/dL RDW (11.5-15.5) % Plt Count (150-450) k/uL MPV Neutrophils % % Lymphocytes % % Monocytes % % Eosinophils % % Basophils % % Neutrophils # (1.3-7.7) k/uL Lymphocytes # (1.0-4.8) k/uL Monocytes # (0-1.0) k/uL Eosinophils # (0-0.7) k/uL Basophils # (0-0.2) k/uL Hypochromasia Anisocytosis PT (9.0-12.0) sec INR (<1.2) APTT (22.0-30.0) sec Sodium (137-145) mmol/L Potassium 7.0 H* (3.5-5.1) mmol/L Chloride (98-107) mmol/L Carbon Dioxide (22-30) mmol/L Anion Gap mmol/L BUN (7-17) mg/dL Creatinine (0.52-1.04) mg/dL Est GFR (CKD-EPI)AfAm (>60 ml/min/1.73 sqM) Est GFR (CKD-EPI)NonAf (>60 ml/min/1.73 sqM) Glucose (74-99) mg/dL POC Glucose (mg/dL) (70-110) mg/dL POC Glu Ekg Tech ID Plasma Lactic Acid Russel (0.7-2.0) mmol/L Calcium (8.4-10.2) mg/dL Magnesium (1.6-2.3) mg/dL Total Bilirubin (0.2-1.3) mg/dL AST (14-36) U/L ALT (4-34) U/L Alkaline Phosphatase (38-126) U/L Troponin I (0.000-0.034) ng/mL NT-Pro-B Natriuret Pep 2360 pg/mL Total Protein (6.3-8.2) g/dL Albumin (3.5-5.0) g/dL Urine Color Urine Appearance (Clear) Urine pH (5.0-8.0) Ur Specific [place] (1.001-1.035) Urine Protein (Negative) Urine Glucose (UA) (Negative) Urine Ketones (Negative) Urine Blood (Negative) Urine Nitrite (Negative) Urine Bilirubin (Negative) Urine Urobilinogen (<2.0) mg/dL Ur Leukocyte Esterase (Negative) Urine RBC (0-5) /hpf Urine WBC (0-5) /hpf Urine WBC Clumps (None) /hpf Ur Squamous Epith Cells (0-4) /hpf Amorphous Sediment (None) /hpf Urine Bacteria (None) /hpf Hyaline Casts (0-2) /lpf Urine Mucus (None) /hpf Influenza Type A (PCR) Not Detected (Not Detectd) Influenza Type B (PCR) Not Detected (Not Detectd) RSV (PCR) Not Detected (Not Detectd) SARS-CoV-2 (PCR) Detected A (Not Detectd) 06/20/22 Range/Units 16:56 WBC (3.8-10.6) k/uL RBC (3.80-5.40) m/uL Hgb (11.4-16.0) gm/dL Hct (34.0-46.0) % MCV (80.0-100.0) fL MCH (25.0-35.0) pg MCHC (31.0-37.0) g/dL RDW (11.5-15.5) % Plt Count (150-450) k/uL MPV Neutrophils % % Lymphocytes % % Monocytes % % Eosinophils % % Basophils % % Neutrophils # (1.3-7.7) k/uL Lymphocytes # (1.0-4.8) k/uL Monocytes # (0-1.0) k/uL Eosinophils # (0-0.7) k/uL Basophils # (0-0.2) k/uL Hypochromasia Anisocytosis PT (9.0-12.0) sec INR (<1.2) APTT (22.0-30.0) sec Sodium (137-145) mmol/L Potassium (3.5-5.1) mmol/L Chloride (98-107) mmol/L Carbon Dioxide (22-30) mmol/L Anion Gap mmol/L BUN (7-17) mg/dL Creatinine (0.52-1.04) mg/dL Est GFR (CKD-EPI)AfAm (>60 ml/min/1.73 sqM) Est GFR (CKD-EPI)NonAf (>60 ml/min/1.73 sqM) Glucose (74-99) mg/dL POC Glucose (mg/dL) 116 H (70-110) mg/dL POC Glu Ekg Tech ID Ashtynval, Britney Plasma Lactic Acid Russel (0.7-2.0) mmol/L Calcium (8.4-10.2) mg/dL Magnesium (1.6-2.3) mg/dL Total Bilirubin (0.2-1.3) mg/dL AST (14-36) U/L ALT (4-34) U/L Alkaline Phosphatase (38-126) U/L Troponin I (0.000-0.034) ng/mL NT-Pro-B Natriuret Pep pg/mL Total Protein (6.3-8.2) g/dL Albumin (3.5-5.0) g/dL Urine Color Urine Appearance (Clear) Urine pH (5.0-8.0) Ur Specific [place] (1.001-1.035) Urine Protein (Negative) Urine Glucose (UA) (Negative) Urine Ketones (Negative) Urine Blood (Negative) Urine Nitrite (Negative) Urine Bilirubin (Negative) Urine Urobilinogen (<2.0) mg/dL Ur Leukocyte Esterase (Negative) Urine RBC (0-5) /hpf Urine WBC (0-5) /hpf Urine WBC Clumps (None) /hpf Ur Squamous Epith Cells (0-4) /hpf Amorphous Sediment (None) /hpf Urine Bacteria (None) /hpf Hyaline Casts (0-2) /lpf Urine Mucus (None) /hpf Influenza Type A (PCR) (Not Detectd) Influenza Type B (PCR) (Not Detectd) RSV (PCR) (Not Detectd) SARS-CoV-2 (PCR) (Not Detectd) Critical Care Time Critical Care Time: Yes <Chioma Anderson - Last Filed: 06/21/22 19:58> Critical Care Time: 35 minutes for treatment of hyperkalemia (Chioma Anderson) Disposition <Joel Mayorga - Last Filed: 06/20/22 15:15> Is patient prescribed a controlled substance at d/c from ED?: No Time of Disposition: 17:08 Decision to Admit Reason: Admit from EC Decision Date: 06/20/22 Decision Time: 17:08 <Chioma Anderson - Last Filed: 06/21/22 19:58> Clinical Impression: Syncope, Fall, Scalp laceration, Hyperkalemia, Concussion, Urinary retention, COVID-19 Disposition: ADMITTED IP TO THIS HOSP Condition: Stable
[2022-06-20] MEDS ORDERED: LIDOCAINE 1% INJ 10MG/ML (30 ML VIAL-PF) SQ ONE (13:54)
[2022-06-20 14:21] LABS: Anisocytosis Slight; Basophils % (A) 1 %; Eosinophils # (A) 0.1 k/uL (0-0.7); Eosinophils % (A) 1 %; HCT 32.9 % (34.0-46.0); HGB 10.3 gm/dL (11.4-16.0); Hypochromasia Marked; Lymphocytes # (A) 1.5 k/uL (1.0-4.8); Lymphocytes % (A) 22 %; MCH 28.4 pg (25.0-35.0); MCHC 31.3 g/dL (31.0-37.0); MCV 90.6 fL (80.0-100.0); Mean Platelet Volume 8.4; Monocytes # (A) 0.5 k/uL (0-1.0); Monocytes % (A) 7 %; Neutrophils # (A) 4.6 k/uL (1.3-7.7); Neutrophils % (A) 68 %; Platelet Count 228 k/uL (150-450); RBC 3.64 m/uL (3.80-5.40); RDW 16.5 % (11.5-15.5); WBC 6.8 k/uL (3.8-10.6)
--- NOTE | 2022-06-20 14:33 | XR ---
EXAMINATION TYPE: XR chest 2V DATE OF EXAM: 06/20/2022 COMPARISON: 05/21/2022 TECHNIQUE: PA and lateral views submitted. HISTORY: Pain FINDINGS: There is right lower lobe infiltrate and small effusion. Arthropathy of the shoulders with postsurgic al changes in the left. No overt failure or pneumothorax. Hypertrophic and degenerative changes of th e spine. IMPRESSION: 1. Right lower lobe infiltrate and small pleural effusion.
[2022-06-20 14:38] LABS: Albumin 3.7 g/dL (3.5-5.0); Calcium 7.4 mg/dL (8.4-10.2); Magnesium 2.3 mg/dL (1.6-2.3); Total Bilirubin 0.4 mg/dL (0.2-1.3); Total Protein 6.3 g/dL (6.3-8.2)
[2022-06-20 14:40] LABS: Potassium 6.4 mmol/L (3.5-5.1)
[2022-06-20] MEDS ORDERED: SODIUM CHLORIDE 0.9% 1,000 ML IV STA (14:42)
--- NOTE | 2022-06-20 14:43 | XR ---
EXAMINATION TYPE: XR ankle limited RT DATE OF EXAM: 06/20/2022 COMPARISON: NONE HISTORY: Pain FINDINGS: Two views of the ankle demonstrate the ankle mortise to be intact and symmetric. Postsurgical changes seen involving the ankle joint with chronic forming the distal tibia. Large plantar calcaneal spur. Vascular calcifications. IMPRESSION: 1. No definite acute fracture or dislocation, if symptoms persist follow-up study in 7 to 10 days wou ld be suggested. 2. Postsurgical changes.
--- NOTE | 2022-06-20 14:45 | XR ---
EXAMINATION TYPE: XR pelvis AP view DATE OF EXAM: 06/20/2022 COMPARISON: NONE HISTORY: Pain The osseous structures are intact and the joint spaces are preserved. No acute fracture is seen. Vi sualized bowel gas pattern is nonspecific. Postsurgical changes lumbar spine. SI joints symmetric. T here is arthropathy of the shoulders. Soft tissue ossification adjacent to the greater trochanter on the right. IMPRESSION: 1. There is deformity of the greater trochanter on the right. If the patient is point tender then a d edicated hip series would be suggested.
[2022-06-20 15:02] LABS: Partial Thromboplastin Time 30.8 sec (22.0-30.0); Prothrombin Time 10.1 sec (9.0-12.0)
[2022-06-20] MEDS ORDERED: cefTRIAXone IN SWFI 1,000 MG/10 ML SYRINGE IVP STA (15:02)
[2022-06-20] MEDS ORDERED: AZITHROMYCIN 500 MG in SODIUM CHLORIDE 0.9% 250 ML IVPB STA (15:02)
--- NOTE | 2022-06-20 15:06 | CT ---
EXAMINATION TYPE: CT brain singh sepulveda con DATE OF EXAM: 06/20/2022 COMPARISON: 05/21/2022 HISTORY: Fall CT DLP: 1696.[address] of the brain was performed. The ventricles, basal cisterns and sulci overlying the cerebral convexities demonstrate mild enlargem ent. There is no evidence for intracranial hemorrhage or sulcal effacement. There is decreased attenuatio n about the periventricular white matter and deep white matter of both cerebral hemispheres, compatib le with chronic small vessel ischemia. No mass effects are seen. If symptoms persist consider MRI. Osseous calvarium is intact. IMPRESSION: 1. Age related atrophic and chronic small vessel ischemic change without acute intracranial process seen at this time. CT Cervical Spine: Unenhanced CT of the cervical spine was performed with bone and soft tissue window settings submitted . Coronal and sagittal reconstruction is obtained. There is normal alignment and prevertebral soft tissues. No evidence for acute cervical fracture . Postoperative changes of ACDF at C5-6. Scattered degenerative disc disease and spondylosis. Biapical scarring. Dense atherosclerotic plaque involving the bilateral carotids. IMPRESSION: 1. No evidence for acute fracture or subluxation of the cervical spine.
[2022-06-20] MEDS ORDERED: INSULIN REGULAR 100 UNIT/ML VIAL (IV) IV ONE (16:55)
[2022-06-20] MEDS ORDERED: DEXTROSE 50% SYRINGE 50 ML IVP STA (16:55)
[2022-06-20] MEDS ORDERED: ALBUTEROL NEBULIZED 2.5 MG/3 ML INHALATION STA (16:56)
[2022-06-20 16:57] LABS: Glucose,Whole Blood 116 mg/dL (70-110)
[2022-06-20] MEDS ORDERED: NALOXONE 0.4 MG/ML 1 ML VIAL IV PRN (17:09)
[2022-06-20 17:29] LABS: Amorphous Sediment,Urine Rare /hpf; Appearance,Urine Cloudy (Clear); Bacteria,Urine Moderate /hpf; Bilirubin,Urine Negative (Negative); Blood,Urine Negative (Negative); Color,Urine Yellow; Glucose,Urine (UA) 3+ (Negative); Hyaline Casts,Urine 17 /lpf (0-2); Ketones,Urine Negative (Negative); Leukocyte Esterase,Urine Large (Negative); Mucus,Urine Rare /hpf; Nitrite,Urine Negative (Negative); Protein,Urine Negative (Negative); RBC,Urine 1 /hpf (0-5); Specific Gravity,Urine 1.011 (1.001-1.035); Squamous Epithelial Cell,Urine 1 /hpf (0-4); Urobilinogen,Urine <2.0 mg/dL (<2.0); WBC,Urine 19 /hpf (0-5)
[2022-06-20] MEDS ORDERED: ALBUTEROL HFA INHALER INHALATION STA (17:37)
[2022-06-20] MEDS ORDERED: CALCIUM CARBONATE 500 MG CHEWABLE PO PRN (19:29)
[2022-06-20] MEDS ORDERED: IPRATROPIUM 0.5 MG/2.5 ML NEBU INHALATION SCH (20:00)
[2022-06-20] MEDS: SYMBICORT 80-4.5 MCG INHALER INHALATION SCH (20:23)
[2022-06-20] MEDS: TIOTROPIUM 2.5 MCG INHALER INHALATION SCH (20:25)
[2022-06-20] MEDS: AMITRIPTYLINE HCL 50 MG TAB PO SCH (20:51)
[2022-06-20] MEDS: APIXABAN 2.5 MG TABLET PO SCH (20:52)
[2022-06-20] MEDS: GABAPENTIN 300 MG CAP PO SCH (20:52)
[2022-06-20] MEDS: METOPROLOL TARTRATE 25 MG TAB PO SCH (20:52)
[2022-06-20] MEDS: ATORVASTATIN 40 MG TAB PO SCH (20:52)
[2022-06-20] MEDS: HYDROcodone/APAP 5-325MG 1 EACH TAB PO PRN (20:53)
[2022-06-20] MEDS: SODIUM CHLORIDE 0.9% 1,000 ML IV SCH (20:54)
[2022-06-20 21:50] LABS: Glucose,Whole Blood 88 mg/dL (70-110)
[2022-06-21 06:52] LABS: Anisocytosis Slight; Basophils % (A) 0 %; Eosinophils # (A) 0.1 k/uL (0-0.7); Eosinophils % (A) 1 %; HCT 26.8 % (34.0-46.0); Hypochromasia Marked; Lymphocytes % (A) 29 %; MCH 27.5 pg (25.0-35.0); MCHC 29.8 g/dL (31.0-37.0); MCV 92.2 fL (80.0-100.0); Mean Platelet Volume 8.7; Monocytes # (A) 0.7 k/uL (0-1.0); Monocytes % (A) 10 %; Neutrophils % (A) 58 %; Platelet Count 255 k/uL (150-450); RBC 2.91 m/uL (3.80-5.40); RDW 16.4 % (11.5-15.5)
[2022-06-21 06:59] LABS: Calcium 7.4 mg/dL (8.4-10.2)
[2022-06-21 07:06] LABS: Potassium 6.1 mmol/L (3.5-5.1)
[2022-06-21] MEDS: TIOTROPIUM 2.5 MCG INHALER INHALATION SCH (08:15)
[2022-06-21] MEDS: SYMBICORT 80-4.5 MCG INHALER INHALATION SCH ×2 (08:15→19:32)
[2022-06-21] MEDS: DEXAMETHASONE SOD PHOSPHATE 10 MG/ML 1 ML VIAL IVP SCH (10:11)
[2022-06-21] MEDS: TAMSULOSIN 0.4 MG CAP.ER.24H PO SCH (10:13)
[2022-06-21] MEDS: ASCORBIC ACID 500 MG TAB PO SCH (10:13)
[2022-06-21] MEDS: LEVOTHYROXINE 50 MCG TAB PO SCH (10:13)
[2022-06-21] MEDS: METOPROLOL TARTRATE 25 MG TAB PO SCH ×2 (10:13→20:24)
[2022-06-21] MEDS: AMIODARONE 200 MG TAB PO SCH (10:13)
[2022-06-21] MEDS: CHOLECALCIFEROL 125 MCG (5000 IU) TABLET PO SCH (10:13)
[2022-06-21] MEDS: APIXABAN 2.5 MG TABLET PO SCH ×2 (10:13→20:24)
[2022-06-21] MEDS: ZINC SULFATE 220 MG CAP PO SCH (10:13)
[2022-06-21] MEDS: GABAPENTIN 300 MG CAP PO SCH ×3 (10:14→20:24)
--- NOTE | 2022-06-21 10:34 | XR ---
EXAMINATION TYPE: XR Hip Complete RT DATE OF EXAM: 06/21/2022 CLINICAL HISTORY: pain TECHNIQUE: AP and frogleg views of the right hip are obtained. COMPARISON: None. FINDINGS: There is no acute fracture/dislocation evident. Well-corticated ossific density adjacent t o the greater trochanter. This could reflect remote avulsion fracture. The joint space appears withi n normal limits. The overlying soft tissue appears unremarkable. IMPRESSION: 1. There is no acute fracture or dislocation. ICD 10 NO FRACTURE, INITIAL EVALUATION
[2022-06-21] MEDS ORDERED: INSULIN REGULAR 100 UNIT/ML VIAL (IV) IV ONE (10:37)
[2022-06-21] MEDS ORDERED: FUROSEMIDE 10 MG/ML 10 ML VIAL IV STA (10:38)
[2022-06-21] MEDS ORDERED: DEXTROSE 50% SYRINGE 50 ML IVP STA (10:40)
--- NOTE | 2022-06-21 11:29 | P.GSCN ---
History of Present Illness Consult date: 06/21/22 Reason for Consult: Urinary retention Requesting physician: Chioma Anderson History of present illness: Patient is a 86-year-old female with a past medical history significant for COPD, CHF, aortic stenosis, coronary artery disease, hypertension, hyperlipidemia, chronic diastolic heart failure, chronic anemia, morbid obesity, diabetes mellitus, sleep apnea, ESBL in her urine, and chronic kidney disease. She presented to the emergency department on 06/20/22 with generalized weakness and a fall during which she suffered a laceration to her right medial ankle. She has also had a cough and some shortness of breath over the last 2-3 days. CXR reveals a right lower lobe infiltrate an small pleural effusions. Pelvis x- ray shows perhaps a deformity at the right greater trochanter. Laboratory evaluation obtained. WBC 7.0, serum creatinine 1.55, Hgb 8.0, and urinalysis suggestive of UTI. She also tested positive for COVID. Review of Systems - Constitutional Reports weakness, Denies chills, Denies fever - Cardiovascular Denies chest pain, Denies shortness of breath - Respiratory Reports cough - Gastrointestinal Denies nausea, Denies vomiting - Genitourinary Genitourinary: Denies dysuria, Denies flank pain, Denies hematuria - Musculoskeletal Reports muscle weakness Past Medical History Past Medical History: Chest Pain / Angina, Heart Failure, COPD, CVA/TIA, Diabetes Mellitus, Hyperlipidemia, Hypertension, Osteoarthritis (OA), Renal Disease, Sleep Apnea/CPAP/BIPAP, Thyroid Disorder Additional Past Medical History / Comment(s): Using a wheelchair or a walker, bilateral peripheral neuropathy in feet and hands, chronic low back pain, lower leg edema, gastritis, anemia, aortic stenosis, chronic renal failure, hemorrhoids Last Myocardial Infarction Date:: 06/17/18 History of Any Multi-Drug Resistant Organisms: ESBL Year Discovered:: 09/06/17 MDRO Source:: ESBL URINE Past Surgical History: Back Surgery, Heart Catheterization, Heart Catheterization With Stent, Joint Replacement, Orthopedic Surgery Additional Past Surgical History / Comment(s): Lumbar laminectomy decompression fusion L3-4 and L5-S1 with cell saver, lumbar instrumentation removal L4-5, L4- L5 laminectomy, BILATERAL KNEE REPLACEMENTS, ORIF RIGHT ANKLE, CERVICAL FUSION, bilateral rotator cuff repair, bilateral wrist carpal tunnel releases, pain procedures, left breast lumpectomy-benign, bilateral varicose vein stripping, bilateral cataracts, heart cath with 5 stents august 2021, egd/colonoscopy 04/13/22 Past Anesthesia/Blood Transfusion Reactions: No Reported Reaction Additional Past Anesthesia/Blood Transfusion Reaction / Comm: blood transfusion 04/01/[address] estrella's notes last hospital stay Date of Last Stent Placement:: 08/30/2021 Past Psychological History: No Psychological Hx Reported Smoking Status: Former smoker Past Alcohol Use History: None Reported Past Drug Use History: None Reported - Past Family History Father Family Medical History: Myocardial Infarction ([place]) Additional Family Medical History / Comment(s): Father at 40 of a [place]. Mother Family Medical History: CVA/TIA Additional Family Medical History / Comment(s): Mother had a CVA Medications and Allergies Home Medications Medication Instructions Recorded Confirmed Type Nitroglycerin Sl Tabs [Nitrostat] 0.4 mg SL Q5M PRN 07/20/15 06/20/22 History Atorvastatin Calcium [Lipitor] 40 mg PO HS #1 tab 08/04/15 06/20/22 Rx Cyanocobalamin [Vitamin B-12 1,000 mcg SQ Q30D 07/06/19 06/20/22 History Injection] Levothyroxine Sodium [Synthroid] 50 mcg PO AC-BRKFST 07/06/19 06/20/22 History Fluticasone/Umeclidin/Vilanter 1 puff INHALATION RT-HS 10/15/21 06/20/22 History [Trelegy Ellipta 100-62.5-25] Apixaban [Eliquis] 2.5 mg PO BID 12/09/21 06/20/22 History Amitriptyline HCl [Elavil] 100 mg PO HS 03/13/22 06/20/22 History Cyanocobalamin (Vitamin B-12) 1,000 mcg PO DAILY 03/13/22 06/20/22 History [Vitamin B-12] Gloria Root 550mg 1 tab PO DAILY 03/13/22 06/20/22 History Gabapentin 300 mg PO TID #9 cap 04/04/22 06/20/22 Rx Calcium Carbonate [Tums] 1,000 mg PO QID PRN tab 04/13/22 06/20/22 Rx Furosemide [Lasix] 40 mg PO DAILY tab 04/13/22 06/20/22 Rx Tamsulosin [Flomax] 0.4 mg PO PC-BRKFST cap 04/13/22 06/20/22 Rx Amiodarone [Cordarone] 200 mg PO DAILY #90 tab 04/14/22 06/20/22 Rx Metoprolol Tartrate [Lopressor] 25 mg PO BID tab 04/14/22 06/20/22 Rx HYDROcodone/APAP 5-325MG [Wayne 1 tab PO Q6H PRN 05/21/22 06/20/22 History 5-325] Insulin Lispro [humaLOG Kwikpen] See Protocol SQ ACHS PRN 05/21/22 06/20/22 Hi story Allergies Allergy/AdvReac Type Severity Reaction Status Date / Time Penicillins Allergy Rash/Hives Verified 05/21/22 13:55 Surgical - Exam Vital Signs Temp Pulse Resp BP Pulse Ox 97.8 F 56 L 18 124/54 92 L 06/20/22 13:30 06/20/22 13:30 06/20/22 13:30 06/20/22 13:30 06/20/22 13:30 General: Well developed, well nourished. No acute distress. Chronically ill appearing HEENT: Head is atraumatic, normocephalic. CV: Heart regular in rate and rhythm positive Lungs: Respirations even and nonlabored. On 2L NC Abdomen/GI: Soft..No guarding, rigidity, or abdominal tenderness. : No suprapubic tenderness. Gibson catheter present draining clear yellow urine Musculoskeletal/ Extremities: + generalized weakness Skin: Warm and dry Neurologic: Awake, alert and oriented times 3. Psychiatric: Appropriate mood and affect. Results - Labs 06/21/22 05:40 06/21/22 05:40 Abnormal Lab Results - Last 24 Hours (Table) 06/20/22 06/20/22 06/20/22 Range/Units 14:08 14:08 14:08 RBC 3.64 L (3.80-5.40) m/uL Hgb 10.3 L (11.4-16.0) gm/dL Hct 32.9 L (34.0-46.0) % MCHC (31.0-37.0) g/dL RDW 16.5 H (11.5-15.5) % APTT 30.8 H (22.0-30.0) sec Sodium (137-145) mmol/L Potassium (3.5-5.1) mmol/L Chloride (98-107) mmol/L BUN (7-17) mg/dL Creatinine (0.52-1.04) mg/dL Glucose (74-99) mg/dL POC Glucose (mg/dL) (70-110) mg/dL Calcium (8.4-10.2) mg/dL Urine Appearance Cloudy H (Clear) Urine Glucose (UA) 3+ H (Negative) Ur Leukocyte Esterase Large H (Negative) Urine WBC 19 H (0-5) /hpf Urine WBC Clumps Few H (None) /hpf Amorphous Sediment Rare H (None) /hpf Urine Bacteria Moderate H (None) /hpf Hyaline Casts 17 H (0-2) /lpf Urine Mucus Rare H (None) /hpf SARS-CoV-2 (PCR) (Not Detectd) 06/20/22 06/20/22 06/20/22 Range/Units 14:08 14:30 15:00 RBC (3.80-5.40) m/uL Hgb (11.4-16.0) gm/dL Hct (34.0-46.0) % MCHC (31.0-37.0) g/dL RDW (11.5-15.5) % APTT (22.0-30.0) sec Sodium 123 L (137-145) mmol/L Potassium 6.4 H* 7.0 H* (3.5-5.1) mmol/L Chloride 91 L (98-107) mmol/L BUN 57 H (7-17) mg/dL Creatinine 1.74 H (0.52-1.04) mg/dL Glucose 113 H (74-99) mg/dL POC Glucose (mg/dL) (70-110) mg/dL Calcium 7.4 L (8.4-10.2) mg/dL Urine Appearance (Clear) Urine Glucose (UA) (Negative) Ur Leukocyte Esterase (Negative) Urine WBC (0-5) /hpf Urine WBC Clumps (None) /hpf Amorphous Sediment (None) /hpf Urine Bacteria (None) /hpf Hyaline Casts (0-2) /lpf Urine Mucus (None) /hpf SARS-CoV-2 (PCR) Detected A (Not Detectd) 06/20/22 06/20/22 06/21/22 Range/Units 16:56 21:25 05:40 RBC 2.91 L (3.80-5.40) m/uL Hgb 8.0 L D (11.4-16.0) gm/dL Hct 26.8 L (34.0-46.0) % MCHC 29.8 L (31.0-37.0) g/dL RDW 16.4 H (11.5-15.5) % APTT (22.0-30.0) sec Sodium (137-145) mmol/L Potassium 6.1 H* (3.5-5.1) mmol/L Chloride (98-107) mmol/L BUN (7-17) mg/dL Creatinine (0.52-1.04) mg/dL Glucose (74-99) mg/dL POC Glucose (mg/dL) 116 H (70-110) mg/dL Calcium (8.4-10.2) mg/dL Urine Appearance (Clear) Urine Glucose (UA) (Negative) Ur Leukocyte Esterase (Negative) Urine WBC (0-5) /hpf Urine WBC Clumps (None) /hpf Amorphous Sediment (None) /hpf Urine Bacteria (None) /hpf Hyaline Casts (0-2) /lpf Urine Mucus (None) /hpf SARS-CoV-2 (PCR) (Not Detectd) 06/21/22 Range/Units 05:40 RBC (3.80-5.40) m/uL Hgb (11.4-16.0) gm/dL Hct (34.0-46.0) % MCHC (31.0-37.0) g/dL RDW (11.5-15.5) % APTT (22.0-30.0) sec Sodium 126 L (137-145) mmol/L Potassium 6.1 H* (3.5-5.1) mmol/L Chloride 95 L (98-107) mmol/L BUN 57 H (7-17) mg/dL Creatinine 1.55 H (0.52-1.04) mg/dL Glucose 72 L (74-99) mg/dL POC Glucose (mg/dL) (70-110) mg/dL Calcium 7.4 L (8.4-10.2) mg/dL Urine Appearance (Clear) Urine Glucose (UA) (Negative) Ur Leukocyte Esterase (Negative) Urine WBC (0-5) /hpf Urine WBC Clumps (None) /hpf Amorphous Sediment (None) /hpf Urine Bacteria (None) /hpf Hyaline Casts (0-2) /lpf Urine Mucus (None) /hpf SARS-CoV-2 (PCR) (Not Detectd) Microbiology - Last 24 Hours (Table) 06/20/22 14:08 Urine Culture - Preliminary Urine,Voided Diabetes panel 06/20/22 06/20/22 06/20/22 Range/Units 14:08 15:00 21:25 Sodium 123 L (137-145) mmol/L Potassium 6.4 H* 7.0 H* 6.1 H* (3.5-5.1) mmol/L Chloride 91 L (98-107) mmol/L Carbon Dioxide 25 (22-30) mmol/L BUN 57 H (7-17) mg/dL Creatinine 1.74 H (0.52-1.04) mg/dL Glucose 113 H (74-99) mg/dL Calcium 7.4 L (8.4-10.2) mg/dL AST 27 (14-36) U/L ALT 19 (4-34) U/L Alkaline Phosphatase 78 (38-126) U/L Total Protein 6.3 (6.3-8.2) g/dL Albumin 3.7 (3.5-5.0) g/dL 06/21/22 Range/Units 05:40 Sodium 126 L (137-145) mmol/L Potassium 6.1 H* (3.5-5.1) mmol/L Chloride 95 L (98-107) mmol/L Carbon Dioxide 22 (22-30) mmol/L BUN 57 H (7-17) mg/dL Creatinine 1.55 H (0.52-1.04) mg/dL Glucose 72 L (74-99) mg/dL Calcium 7.4 L (8.4-10.2) mg/dL AST (14-36) U/L ALT (4-34) U/L Alkaline Phosphatase (38-126) U/L Total Protein (6.3-8.2) g/dL Albumin (3.5-5.0) g/dL Calcium panel 06/20/22 06/21/22 Range/Units 14:08 05:40 Calcium 7.4 L 7.4 L (8.4-10.2) mg/dL Albumin 3.7 (3.5-5.0) g/dL Pituitary panel 06/20/22 06/20/22 06/20/22 Range/Units 14:08 15:00 21:25 Sodium 123 L (137-145) mmol/L Potassium 6.4 H* 7.0 H* 6.1 H* (3.5-5.1) mmol/L Chloride 91 L (98-107) mmol/L Carbon Dioxide 25 (22-30) mmol/L BUN 57 H (7-17) mg/dL Creatinine 1.74 H (0.52-1.04) mg/dL Glucose 113 H (74-99) mg/dL Calcium 7.4 L (8.4-10.2) mg/dL 06/21/22 Range/Units 05:40 Sodium 126 L (137-145) mmol/L Potassium 6.1 H* (3.5-5.1) mmol/L Chloride 95 L (98-107) mmol/L Carbon Dioxide 22 (22-30) mmol/L BUN 57 H (7-17) mg/dL Creatinine 1.55 H (0.52-1.04) mg/dL Glucose 72 L (74-99) mg/dL Calcium 7.4 L (8.4-10.2) mg/dL Adrenal panel 06/20/22 06/20/22 06/20/22 Range/Units 14:08 15:00 21:25 Sodium 123 L (137-145) mmol/L Potassium 6.4 H* 7.0 H* 6.1 H* (3.5-5.1) mmol/L Chloride 91 L (98-107) mmol/L Carbon Dioxide 25 (22-30) mmol/L BUN 57 H (7-17) mg/dL Creatinine 1.74 H (0.52-1.04) mg/dL Glucose 113 H (74-99) mg/dL Calcium 7.4 L (8.4-10.2) mg/dL Total Bilirubin 0.4 (0.2-1.3) mg/dL AST 27 (14-36) U/L ALT 19 (4-34) U/L Alkaline Phosphatase 78 (38-126) U/L Total Protein 6.3 (6.3-8.2) g/dL Albumin 3.7 (3.5-5.0) g/dL 06/21/22 Range/Units 05:40 Sodium 126 L (137-145) mmol/L Potassium 6.1 H* (3.5-5.1) mmol/L Chloride 95 L (98-107) mmol/L Carbon Dioxide 22 (22-30) mmol/L BUN 57 H (7-17) mg/dL Creatinine 1.55 H (0.52-1.04) mg/dL Glucose 72 L (74-99) mg/dL Calcium 7.4 L (8.4-10.2) mg/dL Total Bilirubin (0.2-1.3) mg/dL AST (14-36) U/L ALT (4-34) U/L Alkaline Phosphatase (38-126) U/L Total Protein (6.3-8.2) g/dL Albumin (3.5-5.0) g/dL - Imaging Chest x-ray: report reviewed Abdominal x-ray: report reviewed Assessment and Plan Assessment: The patient was seen and examined in the emergency department. Her vitals are stable, she is afebrile, and she is on 2L NC. She denies any abdominal, flank, or suprapubic pain. She denies any previous history of kidney stones, or abdominal/pelvic surgeries. She was not having any difficulty urinating prior and felt as if she was emptying her bladder completely. However, there were reports of urinary retention with a PVR of 600 ml in the emergency department and a gibson catheter was inserted. Given the patients multiple comorbidities and inactivity, it is recommended that the Gibson catheter remain in place for a couple days. Trial of void before discharge. I have examined and reviewed the patients histroy I concur with Brenda Maier note. Waylon Hendrix md (1) Urinary retention Current Visit: Yes Status: Acute Code(s): R33.9 - RETENTION OF URINE, UNSPECIFIED SNOMED Code(s): 337669217 Plan: - Continue Flomax - Keep Gibson catheter in place - Trial of void before discharge - Awaiting finalization of urine culture Impression and plan of care have been directed as dictated by the signing physician. Brenda Roy nurse practitioner acting as scribe for signing physician. Brenda Roy [facility] Palliative Care/Urology Spectralink [phone] Email: [email or web address]
--- NOTE | 2022-06-21 11:56 | P.NPCON ---
History of Present Illness - Reason for Consult acute renal failure - History of Present Illness Patient is an 86-year-old female with history of COPD, CHF, CVA, chronic kidney disease NKF stage III with baseline creatinine 1.2-1.4 mg/dL secondary to nephrosclerosis. Patient has had urine retention previously during her last admission in April 2022. Patient is admitted this time with complaints of increased weakness and history of fall. No history of fever nausea vomiting or diarrhea. Patient has had a cough and is also complaining of shortness of breath. Patient tested positive for COVID-19. There was also evidence of urine retention in the ER with post void residual residual about 600 and a Hylton catheter was placed last night. Potassium was 7.0 yesterday and down to 6.1 today. Serum creatinine decreased from 1.7-1.5 mg/dL today. Systolic blood pressure around 120-10 8 mmHg Chest x-ray shows right lower lobe infiltrate and small pleural effusions. Review of Systems As per HPI Past Medical History Past Medical History: Chest Pain / Angina, Heart Failure, COPD, CVA/TIA, Diabetes Mellitus, Hyperlipidemia, Hypertension, Osteoarthritis (OA), Renal Disease, Sleep Apnea/CPAP/BIPAP, Thyroid Disorder Additional Past Medical History / Comment(s): Using a wheelchair or a walker, bilateral peripheral neuropathy in feet and hands, chronic low back pain, lower leg edema, gastritis, anemia, aortic stenosis, chronic renal failure, hemorrhoids Last Myocardial Infarction Date:: 06/17/18 History of Any Multi-Drug Resistant Organisms: ESBL Date of last positivie culture/infection: 09/06/17 MDRO Source:: ESBL URINE Past Surgical History: Back Surgery, Heart Catheterization, Heart Catheterization With Stent, Joint Replacement, Orthopedic Surgery Additional Past Surgical History / Comment(s): Lumbar laminectomy decompression fusion L3-4 and L5-S1 with cell saver, lumbar instrumentation removal L4-5, L4- L5 laminectomy, BILATERAL KNEE REPLACEMENTS, ORIF RIGHT ANKLE, CERVICAL FUSION, bilateral rotator cuff repair, bilateral wrist carpal tunnel releases, pain procedures, left breast lumpectomy-benign, bilateral varicose vein stripping, bilateral cataracts, heart cath with 5 stents august 2021, egd/colonoscopy 04/13/22 Past Anesthesia/Blood Transfusion Reactions: No Reported Reaction Additional Past Anesthesia/Blood Transfusion Reaction / Comment(s): blood transfusion 04/01/[address] estrella's notes last hospital stay Date of Last Stent Placement:: 08/30/2021 Past Psychological History: No Psychological Hx Reported Smoking Status: Former smoker Past Alcohol Use History: None Reported Past Drug Use History: None Reported - Past Family History Father Family Medical History: Myocardial Infarction ([place]) Additional Family Medical History / Comment(s): Father at 40 of a [place]. Mother Family Medical History: CVA/TIA Additional Family Medical History / Comment(s): Mother had a CVA Medications and Allergies Home Medications Medication Instructions Recorded Confirmed Type Nitroglycerin Sl Tabs [Nitrostat] 0.4 mg SL Q5M PRN 07/20/15 06/20/22 History Atorvastatin Calcium [Lipitor] 40 mg PO HS #1 tab 08/04/15 06/20/22 Rx Cyanocobalamin [Vitamin B-12 1,000 mcg SQ Q30D 07/06/19 06/20/22 History Injection] Levothyroxine Sodium [Synthroid] 50 mcg PO AC-BRKFST 07/06/19 06/20/22 History Fluticasone/Umeclidin/Vilanter 1 puff INHALATION RT-HS 10/15/21 06/20/22 History [Trelegy Ellipta 100-62.5-25] Apixaban [Eliquis] 2.5 mg PO BID 12/09/21 06/20/22 History Amitriptyline HCl [Elavil] 100 mg PO HS 03/13/22 06/20/22 History Cyanocobalamin (Vitamin B-12) 1,000 mcg PO DAILY 03/13/22 06/20/22 History [Vitamin B-12] Gloria Root 550mg 1 tab PO DAILY 03/13/22 06/20/22 History Gabapentin 300 mg PO TID #9 cap 04/04/22 06/20/22 Rx Calcium Carbonate [Tums] 1,000 mg PO QID PRN tab 04/13/22 06/20/22 Rx Furosemide [Lasix] 40 mg PO DAILY tab 04/13/22 06/20/22 Rx Tamsulosin [Flomax] 0.4 mg PO PC-BRKFST cap 04/13/22 06/20/22 Rx Amiodarone [Cordarone] 200 mg PO DAILY #90 tab 04/14/22 06/20/22 Rx Metoprolol Tartrate [Lopressor] 25 mg PO BID tab 04/14/22 06/20/22 Rx HYDROcodone/APAP 5-325MG [[place]emison 1 tab PO Q6H PRN 05/21/22 06/20/22 History 5-325] Insulin Lispro [humaLOG Kwikpen] See Protocol SQ ACHS PRN 05/21/22 06/20/22 Hist ory Allergies Allergy/AdvReac Type Severity Reaction Status Date / Time Penicillins Allergy Rash/Hives Verified 05/21/22 13:55 Physical Exam Vitals: Vital Signs Temp Pulse Resp BP Pulse Ox 06/21/22 10:00 67 18 122/53 98 06/21/22 09:00 70 18 108/45 97 06/21/22 08:26 97 06/21/22 08:00 65 18 120/43 99 06/21/22 07:23 63 17 122/43 96 06/21/22 07:19 65 18 122/43 97 06/21/22 02:00 58 L 18 107/57 06/21/22 01:30 54 L 10 L 06/21/22 01:00 53 L 12 06/21/22 00:30 56 L 12 06/21/22 00:00 59 L 15 44/33 06/20/22 23:30 59 L 18 06/20/22 23:00 57 L 41 H 124/112 06/20/22 22:00 56 L 18 120/60 06/20/22 21:30 56 L 14 120/60 06/20/22 21:00 59 L 14 128/56 06/20/22 20:49 60 18 128/56 97 06/20/22 20:30 60 14 135/59 06/20/22 20:17 59 L 15 135/59 06/20/22 20:00 60 22 135/59 06/20/22 19:30 55 L 20 102/76 06/20/22 13:30 97.8 F 56 L 18 124/54 92 L Intake and Output 06/20/22 06/21/22 06/21/22 22:59 06:59 14:59 Output Total 1200 800 Balance -1200 -800 Output: Urine 600 800 Uretheral (Hylton) 600 Post Void Residual 600 Patient is awake, comfortable, mildly short of breath Examination of the heart S1 and S2 Examination of the lungs bilateral breath sounds are heard Abdomen is soft obese nontender Examination of lower extremities shows chronic skin changes, trace edema. Wound on right foot near the ankle currently wrapped. Drainage noted. Results - Lab Results Most recent lab results Calcium 7.4 mg/dL (8.4-10.2) L 06/21/22 05:40 Magnesium 2.3 mg/dL (1.6-2.3) 06/20/22 14:08 06/21/22 05:40 06/21/22 05:40 Assessment and Plan Assessment: 1. Acute kidney injury secondary to urine retention currently improving with Hylton catheter placement. UA shows no protein no blood WBCs 19 2. Hyperkalemia associated with acute kidney injury and urine retention. Improving. No NSAIDs or KAE inhibitor as noted on home med list 3. COVID-19 infection with chest x-ray showing right lower lobe infiltrate 4. Volume overload 5. CK D NKF stage III with baseline creatinine 1.2-1.4 mg/dL secondary to nephrosclerosis Plan: Repeat IV Lasix Continue with Hylton catheter Treat hyperkalemia with IV indications Repeat potassium later this evening Continue off of IV fluids next Thank you for the consultation. We will continue to follow the patient with you during her hospitalization
[2022-06-21 13:09] LABS: Glucose,Whole Blood 105 mg/dL (70-110)
--- NOTE | 2022-06-21 14:23 | P.CNPUL ---
History of Present Illness Consult date: 06/21/22 Requesting physician: Дмитрий Montoya Reason for consult: dyspnea Chief complaint: weakness, fall History of present illness: This is a pleasant 86-year-old female patient with a known history of coronary artery disease with previous stent placement, chronic obstructive pulmonary disease, former smoker, CVA/TIA, diabetes mellitus, hypertension, hyperlipidemia, obstructive sleep apnea, aortic stenosis, hypothyroidism, bilateral peripheral neuropathy utilizing walker/wheelchair, morbid obesity,poor functional performance. She was brought into the emergency room yesterday after falling from a standing position after she stood up from the breakfast table. She did sustain a laceration to her right medial ankle. X-ray revealed no acute fracture or dislocation. X-ray of the right hip revealed no acute fracture or dislocation. white count 7.0. He will, and 8.0. Platelets 255.sodium 126. Potassium 6.1. BUN 57. Creatinine 1.55. Glucose 72. Urinalysis cloudy with moderate bacteria. Culture pending. Influenza screen negative. RSV negative. COVID-19 screen positive. The patient is vaccinated. Chest x-ray reveals a right lower lobe infiltrate and small effusion. She was initiated on Symbicort, Spiriva. Antibiotics in the form of ceftriaxone and azithromycin. Lasix 40 mg IV daily. Currently in a negative balance. Review of Systems REVIEW OF SYSTEMS: CONSTITUTIONAL: generalized weakness, falls. Denies any recent significant weight loss or weight gain. EYES: Denies change in vision. EARS, NOSE, MOUTH, THROAT: Denies headaches, denies sore throat. CARDIOVASCULAR: Denies chest pain, palpitations or syncopal episodes. RESPIRATORY: Positive for shortness of breath, cough, congestion no hemoptysis. GASTROINTESTINAL: Denies change in appetite, denies abdominal pain GENITOURINARY: Denies hematuria, positive for infections. MUSKULOSKELETAL: Chronic edema. INTEGUMENTARY: Denies rash, denies eczema. NEUROLOGICAL: Denies recent memory loss, no recent seizure activity. PSYCHIATRIC: Denies anxiety, denies depression. HEMATOLOGIC/LYMPHATIC: Denies anemia, denies enlarged lymph nodes. Past Medical History Past Medical History: Chest Pain / Angina, Heart Failure, COPD, CVA/TIA, Diabetes Mellitus, Hyperlipidemia, Hypertension, Osteoarthritis (OA), Renal Disease, Sleep Apnea/CPAP/BIPAP, Thyroid Disorder Additional Past Medical History / Comment(s): Using a wheelchair or a walker, bilateral peripheral neuropathy in feet and hands, chronic low back pain, lower leg edema, gastritis, anemia, aortic stenosis, chronic renal failure, hemorrhoids Last Myocardial Infarction Date:: 06/17/18 History of Any Multi-Drug Resistant Organisms: ESBL Date of last positivie culture/infection: 09/06/17 MDRO Source:: ESBL URINE Past Surgical History: Back Surgery, Heart Catheterization, Heart Catheterization With Stent, Joint Replacement, Orthopedic Surgery Additional Past Surgical History / Comment(s): Lumbar laminectomy decompression fusion L3-4 and L5-S1 with cell saver, lumbar instrumentation removal L4-5, L4- L5 laminectomy, BILATERAL KNEE REPLACEMENTS, ORIF RIGHT ANKLE, CERVICAL FUSION, bilateral rotator cuff repair, bilateral wrist carpal tunnel releases, pain procedures, left breast lumpectomy-benign, bilateral varicose vein stripping, bilateral cataracts, heart cath with 5 stents august 2021, egd/colonoscopy 04/13/22 Past Anesthesia/Blood Transfusion Reactions: No Reported Reaction Additional Past Anesthesia/Blood Transfusion Reaction / Comment(s): blood transfusion 04/01/[address] estrella's notes last hospital stay Date of Last Stent Placement:: 08/30/2021 Past Psychological History: No Psychological Hx Reported Smoking Status: Former smoker Past Alcohol Use History: None Reported Past Drug Use History: None Reported - Past Family History Father Family Medical History: Myocardial Infarction ([place]) Additional Family Medical History / Comment(s): Father at 40 of a [place]. Mother Family Medical History: CVA/TIA Additional Family Medical History / Comment(s): Mother had a CVA Medications and Allergies Home Medications Medication Instructions Recorded Confirmed Type Nitroglycerin Sl Tabs [Nitrostat] 0.4 mg SL Q5M PRN 07/20/15 06/20/22 History Atorvastatin Calcium [Lipitor] 40 mg PO HS #1 tab 08/04/15 06/20/22 Rx Cyanocobalamin [Vitamin B-12 1,000 mcg SQ Q30D 07/06/19 06/20/22 History Injection] Levothyroxine Sodium [Synthroid] 50 mcg PO AC-BRKFST 07/06/19 06/20/22 History Fluticasone/Umeclidin/Vilanter 1 puff INHALATION RT-HS 10/15/21 06/20/22 History [Trelegy Ellipta 100-62.5-25] Apixaban [Eliquis] 2.5 mg PO BID 12/09/21 06/20/22 History Amitriptyline HCl [Elavil] 100 mg PO HS 03/13/22 06/20/22 History Cyanocobalamin (Vitamin B-12) 1,000 mcg PO DAILY 03/13/22 06/20/22 History [Vitamin B-12] Gloria Root 550mg 1 tab PO DAILY 03/13/22 06/20/22 History Gabapentin 300 mg PO TID #9 cap 04/04/22 06/20/22 Rx Calcium Carbonate [Tums] 1,000 mg PO QID PRN tab 04/13/22 06/20/22 Rx Furosemide [Lasix] 40 mg PO DAILY tab 04/13/22 06/20/22 Rx Tamsulosin [Flomax] 0.4 mg PO PC-BRKFST cap 04/13/22 06/20/22 Rx Amiodarone [Cordarone] 200 mg PO DAILY #90 tab 04/14/22 06/20/22 Rx Metoprolol Tartrate [Lopressor] 25 mg PO BID tab 04/14/22 06/20/22 Rx HYDROcodone/APAP 5-325MG [[place] 1 tab PO Q6H PRN 05/21/22 06/20/22 History 5-325] Insulin Lispro [humaLOG Kwikpen] See Protocol SQ ACHS PRN 05/21/22 06/20/22 History Allergies Allergy/AdvReac Type Severity Reaction Status Date / Time Penicillins Allergy Rash/Hives Verified 05/21/22 13:55 Physical Exam Vitals: Vital Signs Pulse Resp BP Pulse Ox 06/21/22 10:00 67 18 122/53 98 06/21/22 09:00 70 18 108/45 97 06/21/22 08:26 97 06/21/22 08:00 65 18 120/43 99 06/21/22 07:23 63 17 122/43 96 06/21/22 07:19 65 18 122/43 97 06/21/22 02:00 58 L 18 107/57 06/21/22 01:30 54 L 10 L 06/21/22 01:00 53 L 12 06/21/22 00:30 56 L 12 06/21/22 00:00 59 L 15 44/33 06/20/22 23:30 59 L 18 06/20/22 23:00 57 L 41 H 124/112 06/20/22 22:00 56 L 18 120/60 06/20/22 21:30 56 L 14 120/60 06/20/22 21:00 59 L 14 128/56 06/20/22 20:49 60 18 128/56 97 06/20/22 20:30 60 14 135/59 06/20/22 20:17 59 L 15 135/59 06/20/22 20:00 60 22 135/59 06/20/22 19:30 55 L 20 102/76 Intake and Output 06/20/22 06/21/22 06/21/22 22:59 06:59 14:59 Output Total 1200 800 Balance -1200 -800 Output: Urine 600 800 Uretheral (Hyl[place]) 600 Post Void Residual 600 GENERAL EXAM: Alert, weak, morbidly obese 86-year-old female, on 2 L nasal cannula, fairly comfortable in no apparent distress. HEAD: Normocephalic. EYES: Normal reaction of pupils, equal size. NOSE: Clear with pink turbinates. THROAT: No erythema or exudates. NECK: No masses, no JVD. CHEST: No chest wall deformity. LUNGS: Equal air entry with crackles in the right lung base. CVS: S1 and S2 normal with no audible murmur, regular rhythm. ABDOMEN: No hepatosplenomegaly, normal bowel sounds, no guarding or rigidity. SPINE: No scoliosis or deformity SKIN: No rashes CENTRAL NERVOUS SYSTEM: No focal deficits, tone is normal in all 4 extremities. EXTREMITIES: There is 1+ peripheral edema. No clubbing, no cyanosis. Peripheral pulses are intact. Results - Laboratory Findings CBC and BMP: 06/21/22 05:40 06/21/22 05:40 PT/INR, D-dimer PT 10.1 sec (9.0-12.0) 06/20/22 14:08 INR 1.0 (<1.2) 06/20/22 14:08 Abnormal lab findings: Abnormal Labs 06/20/22 06/20/22 06/20/22 14:08 14:08 14:08 RBC 3.64 L Hgb 10.3 L Hct 32.9 L MCHC RDW 16.5 H APTT 30.8 H Sodium Potassium Chloride BUN Creatinine Glucose POC Glucose (mg/dL) Calcium Urine Appearance Cloudy H Urine Glucose (UA) 3+ H Ur Leukocyte Esterase Large H Urine WBC 19 H Urine WBC Clumps Few H Amorphous Sediment Rare H Urine Bacteria Moderate H Hyaline Casts 17 H Urine Mucus Rare H SARS-CoV-2 (PCR) 06/20/22 06/20/22 06/20/22 14:08 14:30 15:00 RBC Hgb Hct MCHC RDW APTT Sodium 123 L Potassium 6.4 H* 7.0 H* Chloride 91 L BUN 57 H Creatinine 1.74 H Glucose 113 H POC Glucose (mg/dL) Calcium 7.4 L Urine Appearance Urine Glucose (UA) Ur Leukocyte Esterase Urine WBC Urine WBC Clumps Amorphous Sediment Urine Bacteria Hyaline Casts Urine Mucus SARS-CoV-2 (PCR) Detected A 06/20/22 06/20/22 06/21/22 16:56 21:25 05:40 RBC 2.91 L Hgb 8.0 L D Hct 26.8 L MCHC 29.8 L RDW 16.4 H APTT Sodium Potassium 6.1 H* Chloride BUN Creatinine Glucose POC Glucose (mg/dL) 116 H Calcium Urine Appearance Urine Glucose (UA) Ur Leukocyte Esterase Urine WBC Urine WBC Clumps Amorphous Sediment Urine Bacteria Hyaline Casts Urine Mucus SARS-CoV-2 (PCR) 06/21/22 05:40 RBC Hgb Hct MCHC RDW APTT Sodium 126 L Potassium 6.1 H* Chloride 95 L BUN 57 H Creatinine 1.55 H Glucose 72 L POC Glucose (mg/dL) Calcium 7.4 L Urine Appearance Urine Glucose (UA) Ur Leukocyte Esterase Urine WBC Urine WBC Clumps Amorphous Sediment Urine Bacteria Hyaline Casts Urine Mucus SARS-CoV-2 (PCR) - Diagnostic Findings Chest x-ray: image reviewed Assessment and Plan Assessment: Generalized weakness with fall suspect secondary to urinary tract infection, COVID-19 infection COVID-19 infection Acute hypoxic respiratory failure secondary to a right lower lobe infiltrate, currently on 2 L nasal cannula, stable Urinary tract infection, cultures pending Valvular heart disease with aortic valve stenosis and a preserved LV function Small right-sided pleural effusion with some chronic changes in the right lower lobe Acute on chronic anemia History of COPD, from previous history of tobacco use. History of chronic diastolic CHF. CAD with previous stent placement. History of moderate aortic stenosis. History of CVA/TIA. History of diabetes mellitus. Morbid obesity. Hyperlipidemia. Hypertension. Hypothyroidism. Poor overall functional performance based on the above-mentioned multiple comorbidities Plan: The patient was seen and evaluated Chest x-ray, labs and medications reviewed Continue ceftriaxone and azithromycin for now Obtain a pro-calcitonin Initiate Decadron 6 mg IV daily Initiate vitamin supplements Anticoagulated with Eliquis Continue IV diuretics We will continue to follow and make further recommendations based on her clinical status I have personally seen and examined the patient, performed the documentation and the assessment and plan as written. Number of minutes spent on the visit: 20.
--- NOTE | 2022-06-21 15:41 | P.HPIM ---
History of Present Illness H&P Date: 06/21/22 Chief Complaint: Fatigue and shortness of breath But he's an 86-year-old white, female, well known to be from the practice. She has been in and out of The hospital five times this year for multiple conditions, including COPDUTI since CHF. She's been rehabilitated twice now at [facility] and Дмитрий is in the [facility] this year.She came to the emergency room after standing up and feeling very weak and falling. She's been also short of breath for the past 2 to 3 days. Patient recently had COVID-19 and was on pax livid. She's also recently seen in the office for a ICF follow up. This morning she is in bed, complaining some weakness and shortness breath. She denies any chest pains or nausea vomiting. Vital signs are stable with pulse ox symmetry at 90% of 2 L O2. Heart rate respirate blood pressure normal.Potassium has been as high as 7.0 and most recently was 6.1.She has received albuterol for the hyper kalemia. She has received azithromycin and ceftriaxone her antibiotic coverage. She remains on eliquis for a fib, anticoagulation, amiodarone for AFIB. she is not urinating at all and bladder scan showed greater than 600 cc of urine. A Hylton catheter is been brien She feels better this morning after medication. She has pulmonology in nephrology to see he Review of Systems All systems: negative Past Medical History Past Medical History: Coronary Artery Disease (CAD), Chest Pain / Angina, Heart Failure, COPD, CVA/TIA, Diabetes Mellitus, Hyperlipidemia, Hypertension, Myocardial Infarction ([place]), Osteoarthritis (OA), Renal Disease, Sleep Apnea/CPAP/BIPAP, Thyroid Disorder Additional Past Medical History / Comment(s): Pt recently admitted to [facility] on 05/21/22/ gravely disabled, UTI, acquired hypothyroidism, exacerbation copd and chf, anemia. Other hx: IDDM type II, neuropathy bilateral hands/feet, CKD stage III, urinary retention, UTIs, anemia, home oxygen use ATC, bilateral lower extremity edema, current pressure ulcer decub per pt, gastritis, hiatal hernia, aortic stenosis, hemorrhoids. Last Myocardial Infarction Date:: 06/18/17 History of Any Multi-Drug Resistant Organisms: ESBL Date of last positivie culture/infection: 09/06/17 MDRO Source:: ESBL URINE Past Surgical History: Back Surgery, Heart Catheterization, Heart Catheterization With Stent, Joint Replacement, Orthopedic Surgery Additional Past Surgical History / Comment(s): Lumbar laminectomy decompression fusion L3-4 and L5-S1 with cell saver, lumbar instrumentation removal L4-5, L4- L5 laminectomy, BILATERAL KNEE REPLACEMENTS, ORIF RIGHT ANKLE, CERVICAL FUSION, bilateral rotator cuff repair, bilateral wrist carpal tunnel releases, pain procedures, left breast lumpectomy-benign, bilateral varicose vein stripping, bilateral cataracts, heart cath with 5 stents august 2021, egd/colonoscopy 04/13/22 Past Anesthesia/Blood Transfusion Reactions: No Reported Reaction Additional Past Anesthesia/Blood Transfusion Reaction / Comment(s): blood transfusion 04/01/[address] estrella's notes last hospital stay Date of Last Stent Placement:: 08/30/2021 Smoking Status: Former smoker - Past Family History Father Family Medical History: Myocardial Infarction ([place]) Additional Family Medical History / Comment(s): Father at 40 of a [place]. Mother Family Medical History: CVA/TIA Additional Family Medical History / Comment(s): Mother had a CVA Medications and Allergies Home Medications Medication Instructions Recorded Confirmed Type Nitroglycerin Sl Tabs [Nitrostat] 0.4 mg SL Q5M PRN 07/20/15 06/20/22 History Atorvastatin Calcium [Lipitor] 40 mg PO HS #1 tab 08/04/15 06/20/22 Rx Cyanocobalamin [Vitamin B-12 1,000 mcg SQ Q30D 07/06/19 06/20/22 History Injection] Levothyroxine Sodium [Synthroid] 50 mcg PO AC-BRKFST 07/06/19 06/20/22 History Fluticasone/Umeclidin/Vilanter 1 puff INHALATION RT-HS 10/15/21 06/20/22 History [Trelegy Ellipta 100-62.5-25] Apixaban [Eliquis] 2.5 mg PO BID 12/09/21 06/20/22 History Amitriptyline HCl [Elavil] 100 mg PO HS 03/13/22 06/20/22 History Cyanocobalamin (Vitamin B-12) 1,000 mcg PO DAILY 03/13/22 06/20/22 History [Vitamin B-12] Gloria Root 550mg 1 tab PO DAILY 03/13/22 06/20/22 History Gabapentin 300 mg PO TID #9 cap 04/04/22 06/20/22 Rx Calcium Carbonate [Tums] 1,000 mg PO QID PRN tab 04/13/22 06/20/22 Rx Furosemide [Lasix] 40 mg PO DAILY tab 04/13/22 06/20/22 Rx Tamsulosin [Flomax] 0.4 mg PO PC-BRKFST cap 04/13/22 06/20/22 Rx Amiodarone [Cordarone] 200 mg PO DAILY #90 tab 04/14/22 06/20/22 Rx Metoprolol Tartrate [Lopressor] 25 mg PO BID tab 04/14/22 06/20/22 Rx HYDROcodone/APAP 5-325MG [[place] 1 tab PO Q6H PRN 05/21/22 06/20/22 History 5-325] Insulin Lispro [humaLOG Kwikpen] See Protocol SQ ACHS PRN 05/21/22 06/20/22 History Allergies Allergy/AdvReac Type Severity Reaction Status Date / Time Penicillins Allergy Rash/Hives Verified 05/21/22 13:55 Physical Exam Vitals: Vital Signs Pulse Resp BP Pulse Ox 06/21/22 15:08 74 16 136/45 98 06/21/22 10:00 67 18 122/53 98 06/21/22 09:00 70 18 108/45 97 06/21/22 08:26 97 06/21/22 08:00 65 18 120/43 99 06/21/22 07:23 63 17 122/43 96 06/21/22 07:19 65 18 122/43 97 06/21/22 02:00 58 L 18 107/57 06/21/22 01:30 54 L 10 L 06/21/22 01:00 53 L 12 06/21/22 00:30 56 L 12 06/21/22 00:00 59 L 15 44/33 06/20/22 23:30 59 L 18 06/20/22 23:00 57 L 41 H 124/112 06/20/22 22:00 56 L 18 120/60 06/20/22 21:30 56 L 14 120/60 06/20/22 21:00 59 L 14 128/56 06/20/22 20:49 60 18 128/56 97 06/20/22 20:30 60 14 135/59 06/20/22 20:17 59 L 15 135/59 06/20/22 20:00 60 22 135/59 06/20/22 19:30 55 L 20 102/76 Intake and Output 06/21/22 06/21/22 06/21/22 06:59 14:59 22:59 Output Total 800 Balance -800 Output: Urine 800 Other: Weight 113.852 kg General: Alert and oriented 3, sitting up in bed, conversing voice is somewhat weak HEENT: [PERRL. EOMI. No pharyngeal erythema or exudate. Conjunctiva normal Neck: Supple, no JVD Cardiac: [Heart regularly irregular No S3. No S4. No clicks, rubs. Systolic murmur. Lungs: Unlabored, coarse with bibasilar rhonchi Abdomen: [Soft, nontender, No mass. No organomegaly. Bowel sounds presnt and normoactive in all 4 quadrants.] Extremes:+1l edema bilateral lower extremes no cyanosis no claudication normal pulses] Skin: [Warm and dry, No rash.] Neurologic: Cranial nerves II-12 grossly intact, no focal deficit Results CBC & Chem 7: 06/21/22 05:40 06/21/22 05:40 Labs: Abnormal Lab Results - Last 24 Hours (Table) 06/20/22 06/20/22 06/20/22 Range/Units 14:08 14:30 15:00 RBC (3.80-5.40) m/uL Hgb (11.4-16.0) gm/dL Hct (34.0-46.0) % MCHC (31.0-37.0) g/dL RDW (11.5-15.5) % Sodium (137-145) mmol/L Potassium 7.0 H* (3.5-5.1) mmol/L Chloride (98-107) mmol/L BUN (7-17) mg/dL Creatinine (0.52-1.04) mg/dL Glucose (74-99) mg/dL POC Glucose (mg/dL) (70-110) mg/dL Calcium (8.4-10.2) mg/dL Urine Appearance Cloudy H (Clear) Urine Glucose (UA) 3+ H (Negative) Ur Leukocyte Esterase Large H (Negative) Urine WBC 19 H (0-5) /hpf Urine WBC Clumps Few H (None) /hpf Amorphous Sediment Rare H (None) /hpf Urine Bacteria Moderate H (None) /hpf Hyaline Casts 17 H (0-2) /lpf Urine Mucus Rare H (None) /hpf SARS-CoV-2 (PCR) Detected A (Not Detectd) 06/20/22 06/20/22 06/21/22 Range/Units 16:56 21:25 05:40 RBC 2.91 L (3.80-5.40) m/uL Hgb 8.0 L D (11.4-16.0) gm/dL Hct 26.8 L (34.0-46.0) % MCHC 29.8 L (31.0-37.0) g/dL RDW 16.4 H (11.5-15.5) % Sodium (137-145) mmol/L Potassium 6.1 H* (3.5-5.1) mmol/L Chloride (98-107) mmol/L BUN (7-17) mg/dL Creatinine (0.52-1.04) mg/dL Glucose (74-99) mg/dL POC Glucose (mg/dL) 116 H (70-110) mg/dL Calcium (8.4-10.2) mg/dL Urine Appearance (Clear) Urine Glucose (UA) (Negative) Ur Leukocyte Esterase (Negative) Urine WBC (0-5) /hpf Urine WBC Clumps (None) /hpf Amorphous Sediment (None) /hpf Urine Bacteria (None) /hpf Hyaline Casts (0-2) /lpf Urine Mucus (None) /hpf SARS-CoV-2 (PCR) (Not Detectd) 06/21/22 Range/Units 05:40 RBC (3.80-5.40) m/uL Hgb (11.4-16.0) gm/dL Hct (34.0-46.0) % MCHC (31.0-37.0) g/dL RDW (11.5-15.5) % Sodium 126 L (137-145) mmol/L Potassium 6.1 H* (3.5-5.1) mmol/L Chloride 95 L (98-107) mmol/L BUN 57 H (7-17) mg/dL Creatinine 1.55 H (0.52-1.04) mg/dL Glucose 72 L (74-99) mg/dL POC Glucose (mg/dL) (70-110) mg/dL Calcium 7.4 L (8.4-10.2) mg/dL Urine Appearance (Clear) Urine Glucose (UA) (Negative) Ur Leukocyte Esterase (Negative) Urine WBC (0-5) /hpf Urine WBC Clumps (None) /hpf Amorphous Sediment (None) /hpf Urine Bacteria (None) /hpf Hyaline Casts (0-2) /lpf Urine Mucus (None) /hpf SARS-CoV-2 (PCR) (Not Detectd) Microbiology - Last 24 Hours (Table) 06/20/22 14:08 Urine Culture - Preliminary Urine,Voided Thrombosis Risk Factor Assmnt - DVT/VTE Prophylaxis DVT/VTE Prophylaxis: Pharmacologic Prophylaxis ordered - Choose All That Apply Any of the Below Risk Factors Present?: Yes Each Factor Represents 1 point: Abnormal pulmonary function (COPD), Obesity (BMI >25), Serious lung disease incl. pneumonia (< 1month), Swollen legs (current) Other Risk Factors: Yes Each Risk Factor Represents 3 Points: Age 75 years or older Other congenital or acquired thrombophilia - If yes, enter type in comment: No Thrombosis Risk Factor Assessment Total Risk Factor Score: 7 Thrombosis Risk Factor Assessment Level: High Risk Assessment and Plan (1) COVID-19 Current Visit: Yes Status: Acute Code(s): U07.1 - COVID-19 SNOMED Code(s): 712453624 (2) Fall Current Visit: Yes Status: Acute Code(s): W19.XXXA - UNSPECIFIED FALL, INITIAL ENCOUNTER SNOMED Code(s): 8594192 (3) Hyperkalemia Current Visit: Yes Status: Acute Code(s): E87.5 - HYPERKALEMIA SNOMED Code(s): 06081950 (4) Scalp laceration Current Visit: Yes Status: Acute Code(s): S01.01XA - LACERATION WITHOUT FOREIGN BODY OF SCALP, INITIAL ENCOUNTER SNOMED Code(s): 940157343 (5) Syncope Current Visit: Yes Status: Acute Code(s): R55 - SYNCOPE AND COLLAPSE SNOMED Code(s): 685411583 (6) Urinary retention Current Visit: Yes Status: Acute Code(s): R33.9 - RETENTION OF URINE, UNSPECIFIED SNOMED Code(s): 391421348 (7) Acute on chronic diastolic (congestive) heart failure Current Visit: No Status: Acute Code(s): I50.33 - ACUTE ON CHRONIC DIASTOLIC (CONGESTIVE) HEART FAILURE SNOMED Code(s): 230512412 (8) Acute on chronic renal failure Current Visit: No Status: Acute Code(s): N17.9 - ACUTE KIDNEY FAILURE, UNSPECIFIED; N18.9 - CHRONIC KIDNEY DISEASE, UNSPECIFIED SNOMED Code(s): 628596458 (9) Altered mental status Current Visit: No Status: Acute Code(s): R41.82 - ALTERED MENTAL STATUS, UNSPECIFIED SNOMED Code(s): 534661725 (10) Anemia Current Visit: No Status: Acute Code(s): D64.9 - ANEMIA, UNSPECIFIED SNOMED Code(s): 105198207 (11) CAD (coronary atherosclerotic disease) Current Visit: No Status: Acute Code(s): I25.10 - ATHSCL HEART DISEASE OF [place] CORONARY ARTERY W/O ANG PCTRS SNOMED Code(s): 413442473
--- NOTE | 2022-06-21 16:42 | US ---
EXAMINATION TYPE: US kidneys/renal and bladder DATE OF EXAM: 06/21/2022 COMPARISON: US CLINICAL HISTORY: retention. Retention EXAM MEASUREMENTS: Right Kidney: 8.9 x 4.7 x 4.7 cm Left Kidney: 9.0 x 5.1 x 4.1 cm Right Kidney: Small in size, no evidence of hydro Left Kidney: Cortical thinning, no evidence of hydro, lower pole gassed out Bladder: Pt has cath in place There is no evidence for hydronephrosis at this point in time. No nephrolithiasis is seen. No el s are identified. The urinary bladder is nondistended IMPRESSION: No evidence of obstructive uropathy.
[2022-06-21 17:25] LABS: Calcium 7.9 mg/dL (8.4-10.2)
[2022-06-21] MEDS: HYDROcodone/APAP 5-325MG 1 EACH TAB PO PRN (18:10)
[2022-06-21] MEDS: SODIUM CHLORIDE 0.9% 1,000 ML IV SCH (18:49)
[2022-06-21] MEDS ORDERED: FUROSEMIDE 10 MG/ML 4 ML VIAL IV STA (19:45)
[2022-06-21 20:14] LABS: Glucose,Whole Blood 220 mg/dL (70-110)
--- NOTE | 2022-06-21 20:14 | XR ---
EXAMINATION TYPE: XR chest 1V portable DATE OF EXAM: 06/21/2022 8:00 PM COMPARISON: Chest radiographs from 06/20/2022. TECHNIQUE: XR chest 1V portable Portable AP radiograph of the chest. CLINICAL INDICATION:Female, 86 years old with history of CHF; FINDINGS: Lungs/Pleura: There is no evidence of focal consolidation, or pneumothorax. Blunting of the costophr enic angles. Pulmonary vascularity: Pulmonary vascular congestion. Heart/mediastinum: Cardiomediastinal silhouette is enlarged and stable. Musculoskeletal: No acute osseous pathology. There is fixation hardware in the lower cervical spine. IMPRESSION: Cardiomegaly and mild pulmonary vascular congestion. Correlate with BNP for congestive heart failure.
[2022-06-21] MEDS: ATORVASTATIN 40 MG TAB PO SCH (20:24)
[2022-06-21] MEDS: AMITRIPTYLINE HCL 50 MG TAB PO SCH (20:24)
[2022-06-22 06:11] LABS: Glucose,Whole Blood 92 mg/dL (70-110)
[2022-06-22] MEDS: LEVOTHYROXINE 50 MCG TAB PO SCH (06:42)
[2022-06-22] MEDS: SYMBICORT 80-4.5 MCG INHALER INHALATION SCH ×2 (07:59→20:20)
[2022-06-22] MEDS: TIOTROPIUM 2.5 MCG INHALER INHALATION SCH (08:00)
--- NOTE | 2022-06-22 08:15 | P.PN ---
Subjective Patient is seen for follow-up for acute kidney injury and hyperkalemia along with volume overload. She is currently being diuresed. Serum potassium was 6.0 yesterday. Creatinine was down to 1.4. Patient has an indwelling Hylton catheter for urine retention. No significant complaints today. Objective - Vital Signs Vital signs: Vital Signs Temp 98.9 F 06/21/22 17:08 Pulse 72 06/22/22 04:00 Resp 20 06/22/22 04:00 BP 146/75 06/22/22 04:00 Pulse Ox 96 06/22/22 08:02 FiO2 Intake & Output 06/21/22 06/22/22 06/22/22 18:59 06:59 18:59 Output Total 800 1800 Balance -800 -1800 Weight 113.852 kg 114 kg Output: Urine 800 1800 Other: Voiding Method Indwelling Catheter Indwelling Catheter - Exam Awake, comfortable, no acute distress Examination of the heart S1 and S2 Examination lungs decreased breath sounds at the bases Abdomen is soft obese nontender Exertion lower extremities shows edema 1-2+ bilaterally. Right ankle has a laceration on the medial side currently wrapped - Labs CBC & Chem 7: 06/21/22 05:40 06/21/22 16:20 Labs: Abnormal Lab Results - Last 24 Hours (Table) 06/21/22 06/21/22 06/21/22 Range/Units 05:40 16:20 20:12 Sodium 129 L (137-145) mmol/L Potassium 6.0 H (3.5-5.1) mmol/L Chloride 97 L (98-107) mmol/L BUN 50 H (7-17) mg/dL Creatinine 1.40 H (0.52-1.04) mg/dL Glucose 113 H (74-99) mg/dL POC Glucose (mg/dL) 220 H (70-110) mg/dL Calcium 7.9 L (8.4-10.2) mg/dL Procalcitonin 0.11 H (0.02-0.09) ng/mL Microbiology - Last 24 Hours (Table) 06/20/22 14:08 Urine Culture - Preliminary Urine,Voided Gram Neg Bacilli Assessment and Plan Assessment: 1. Acute kidney injury secondary to urine retention currently improving with Hylton catheter placement. UA shows no protein no blood WBCs 19 2. Hyperkalemia associated with acute kidney injury and urine retention. Improving. No NSAIDs or KAE inhibitor as noted on home med list. Continue with loop diuretics 3. COVID-19 infection with chest x-ray showing right lower lobe infiltrate 4. Volume overload 5. CK D NKF stage III with baseline creatinine 1.2-1.4 mg/dL secondary to neph rosclerosis 6. Right ankle wound 7. Hyponatremia hypervolemic currently improved Plan: Continue to diurese Continue with Hylton catheter Check labs today
[2022-06-22 08:36] LABS: Anisocytosis Slight; HCT 26.9 % (34.0-46.0); Hypochromasia Marked; MCH 27.2 pg (25.0-35.0); MCHC 29.5 g/dL (31.0-37.0); Mean Platelet Volume 8.5; Platelet Count 316 k/uL (150-450); RBC 2.93 m/uL (3.80-5.40); RDW 16.5 % (11.5-15.5); WBC 4.9 k/uL (3.8-10.6)
[2022-06-22] MEDS: AZITHROMYCIN 500 MG in SODIUM CHLORIDE 0.9% 250 ML IVPB SCH (08:42)
[2022-06-22] MEDS: SODIUM CHLORIDE 0.9% 1,000 ML IV SCH (08:42)
[2022-06-22] MEDS: AMIODARONE 200 MG TAB PO SCH (08:43)
[2022-06-22] MEDS: METOPROLOL TARTRATE 25 MG TAB PO SCH ×2 (08:43→20:09)
[2022-06-22] MEDS: APIXABAN 2.5 MG TABLET PO SCH ×2 (08:43→20:09)
[2022-06-22] MEDS: CHOLECALCIFEROL 125 MCG (5000 IU) TABLET PO SCH (08:43)
[2022-06-22] MEDS: ASCORBIC ACID 500 MG TAB PO SCH (08:43)
[2022-06-22] MEDS: GABAPENTIN 300 MG CAP PO SCH ×3 (08:44→20:09)
[2022-06-22] MEDS: TAMSULOSIN 0.4 MG CAP.ER.24H PO SCH (08:44)
[2022-06-22] MEDS: DEXAMETHASONE SOD PHOSPHATE 10 MG/ML 1 ML VIAL IVP SCH (08:44)
[2022-06-22] MEDS: FUROSEMIDE 10 MG/ML 4 ML VIAL IV SCH (08:44)
[2022-06-22] MEDS: ZINC SULFATE 220 MG CAP PO SCH (08:44)
[2022-06-22 09:02] LABS: C Reactive Protein 2.7 mg/dL (<1.0); Calcium 8.1 mg/dL (8.4-10.2); Magnesium 2.4 mg/dL (1.6-2.3); Potassium 5.5 mmol/L (3.5-5.1)
--- NOTE | 2022-06-22 09:19 | P.PN ---
Subjective Progress Note Date: 06/22/22 06/21/22:But he's an 86-year-old white, female, well known to be from the practice. She has been in and out of The hospital five times this year for multiple conditions, including COPDUTI since CHF. She's been rehabilitated twice now at [facility] and [facility] is in the [facility] this year.She came to the emergency room after standing up and feeling very weak and falling. She's been also short of breath for the past 2 to 3 days. Patient recently had COVID-19 and was on pax livid. She's also recently seen in the office for a ICF follow up. This morning she is in bed, complaining some weakness and shortness breath. She denies any chest pains or nausea vomiting. Vital signs are stable with pulse ox symmetry at 90% of 2 L O2. Heart rate respirate blood pressure normal.Potassium has been as high as 7.0 and most recently was 6.1.She has received albuterol for the hyper kalemia. She has received azithromycin and ceftriaxone her antibiotic coverage. She remains on eliquis for a fib, anticoagulation, amiodarone for AFIB. she is not urinating at all and bladder scan showed greater than 600 cc of urine. A Hylton catheter is been brien She feels better this morning after medication. She has seen pulmonology and nephrology. 06/22/2022: Patient is reevaluated for her significant hyperkalemia, acute renal failure most likely due to urinary retention, hypervolemic hyponatremia, and her CHF. She COVID-19 last week. She is sleeping currently but easily arousable. No significant complaints at rest. No chest pains, pressures, shortness of breath. She has a Hyltno catheter to gravity. Vital signs remained stable heart rate respirate rate pulse oximetry remains excellent on 2 L O2. Laboratory studies show her hemoglobin is stable at 8.0. Normal white count. Sodium 131, potassium is now 5.5, CO2 27 BUN 50 creatinine 1.22. Her magnesium is 2.4. C-reactive protein 2.7. GFR is calculated at 41. Urine culture shows greater than 100,000 gram-negative bacilli. Urinalysis from 1220 showed cloudy urine. While there are large leukocytes, there are no nitrites but some moderate bacteria noted. Chest x-ray from last indicates glomerular megaly with mild pulmonary vascular congestion. Ultrasound the kidneys show no evidence of obstructive uropathy. Objective - Vital Signs Vital signs: Vital Signs Temp 98.3 F 06/22/22 08:39 Pulse 72 06/22/22 08:39 Resp 20 06/22/22 08:39 BP 139/50 06/22/22 08:39 Pulse Ox 98 06/22/22 08:39 FiO2 Intake & Output 06/21/22 06/22/22 06/22/22 18:59 06:59 18:59 Output Total 800 1800 Balance -800 -1800 Weight 113.852 kg 114 kg Output: Urine 800 1800 Other: Voiding Method Indwelling Catheter Indwelling Catheter - Exam General: Alert and oriented 3, sitting up in bed, sleeping, but easily arou sable Neck: Supple, no JVD Cardiac: [Heart regularly irregular No S3. No S4. No clicks, rubs. Systolic murmur. Lungs: Unlabored, coarse with bibasilar rhonchi Abdomen: [Soft, nontender, No mass. No organomegaly. Bowel sounds presnt and normoactive in all 4 quadrants.] Extremes:+1l edema bilateral lower extremes no cyanosis no claudication normal pulses] Skin: [Warm and dry, No rash.] Neurologic: Cranial nerves II-12 grossly intact, no focal deficit - Labs CBC & Chem 7: 06/22/22 07:55 06/22/22 07:55 Labs: Abnormal Lab Results - Last 24 Hours (Table) 06/21/22 06/21/22 06/21/22 Range/Units 05:40 16:20 20:12 RBC (3.80-5.40) m/uL Hgb (11.4-16.0) gm/dL Hct (34.0-46.0) % MCHC (31.0-37.0) g/dL RDW (11.5-15.5) % Sodium 129 L (137-145) mmol/L Potassium 6.0 H (3.5-5.1) mmol/L Chloride 97 L (98-107) mmol/L BUN 50 H (7-17) mg/dL Creatinine 1.40 H (0.52-1.04) mg/dL Glucose 113 H (74-99) mg/dL POC Glucose (mg/dL) 220 H (70-110) mg/dL Calcium 7.9 L (8.4-10.2) mg/dL Magnesium (1.6-2.3) mg/dL C-Reactive Protein (<1.0) mg/dL Procalcitonin 0.11 H (0.02-0.09) ng/mL 06/22/22 06/22/22 Range/Units 07:55 07:55 RBC 2.93 L (3.80-5.40) m/uL Hgb 8.0 L (11.4-16.0) gm/dL Hct 26.9 L (34.0-46.0) % MCHC 29.5 L (31.0-37.0) g/dL RDW 16.5 H (11.5-15.5) % Sodium 131 L (137-145) mmol/L Potassium 5.5 H (3.5-5.1) mmol/L Chloride 96 L (98-107) mmol/L BUN 50 H (7-17) mg/dL Creatinine 1.22 H (0.52-1.04) mg/dL Glucose (74-99) mg/dL POC Glucose (mg/dL) (70-110) mg/dL Calcium 8.1 L (8.4-10.2) mg/dL Magnesium 2.4 H (1.6-2.3) mg/dL C-Reactive Protein 2.7 H (<1.0) mg/dL Procalcitonin (0.02-0.09) ng/mL Microbiology - Last 24 Hours (Table) 06/20/22 14:08 Urine Culture - Preliminary Urine,Voided Gram Neg Bacilli Assessment and Plan (1) COVID-19 Current Visit: Yes Status: Acute Code(s): U07.1 - COVID-19 SNOMED Code(s): 065135897 (2) Fall Current Visit: Yes Status: Acute Code(s): W19.XXXA - UNSPECIFIED FALL, INITIAL ENCOUNTER SNOMED Code(s): 0196378 (3) Hyperkalemia Current Visit: Yes Status: Acute Code(s): E87.5 - HYPERKALEMIA SNOMED Code(s): 80475411 (4) Scalp laceration Current Visit: Yes Status: Acute Code(s): S01.01XA - LACERATION WITHOUT FOREIGN BODY OF SCALP, INITIAL ENCOUNTER SNOMED Code(s): 450476129 (5) Syncope Current Visit: Yes Status: Acute Code(s): R55 - SYNCOPE AND COLLAPSE SNOMED Code(s): 758898185 (6) Urinary retention Current Visit: Yes Status: Acute Code(s): R33.9 - RETENTION OF URINE, UNSPECIFIED SNOMED Code(s): 610680596 (7) Acute on chronic diastolic (congestive) heart failure Current Visit: No Status: Acute Code(s): I50.33 - ACUTE ON CHRONIC DIASTOLIC (CONGESTIVE) HEART FAILURE SNOMED Code(s): 180682533 (8) Acute on chronic renal failure Current Visit: No Status: Acute Code(s): N17.9 - ACUTE KIDNEY FAILURE, UNSPECIFIED; N18.9 - CHRONIC KIDNEY DISEASE, UNSPECIFIED SNOMED Code(s): 978420021 (9) Altered mental status Current Visit: No Status: Acute Code(s): R41.82 - ALTERED MENTAL STATUS, UNSPECIFIED SNOMED Code(s): 311602856 (10) Anemia Current Visit: No Status: Acute Code(s): D64.9 - ANEMIA, UNSPECIFIED SNOMED Code(s): 347118167 (11) CAD (coronary atherosclerotic disease) Current Visit: No Status: Acute Code(s): I25.10 - ATHSCL HEART DISEASE OF [place] CORONARY ARTERY W/O ANG PCTRS SNOMED Code(s): 753717641 (12) Hyponatremia Current Visit: Yes Status: Acute Code(s): E87.1 - HYPO-OSMOLALITY AND HYPONATREMIA SNOMED Code(s): 91355059 (13) CKD (chronic kidney disease) stage 3, GFR 30-59 ml/min Current Visit: Yes Status: Acute Code(s): N18.30 - CHRONIC KIDNEY DISEASE, STAGE 3 UNSPECIFIED SNOMED Code(s): 873448428 (14) Acute renal failure Current Visit: No Status: Acute Code(s): N17.9 - ACUTE KIDNEY FAILURE, UNSP ECIFIED SNOMED Code(s): 82872350 Plan: Continue Hylton catheter to gravity. Continue on antibiotics of ceftriaxone and azithromycin. Continue on furosemide for diuresis of her congestive heart failure. She will continue on hydrocodone for back pain. Tinea on her other medications as reviewed in the medical record this morning. We'll repeat labs in am. Wait on further recommendations from pulmonology and nephrology, to be reevaluated next 24 hours
--- NOTE | 2022-06-22 11:14 | P.PN ---
Subjective Progress Note Date: 06/22/22 This is a pleasant 86-year-old female patient with a known history of coronary artery disease with previous stent placement, chronic obstructive pulmonary disease, former smoker, CVA/TIA, diabetes mellitus, hypertension, hyperlipidemia, obstructive sleep apnea, aortic stenosis, hypothyroidism, bilateral peripheral neuropathy utilizing walker/wheelchair, morbid obesity,poor functional performance. She was brought into the emergency room yesterday after falling from a standing position after she stood up from the breakfast table. She did sustain a laceration to her right medial ankle. X-ray revealed no acute fracture or dislocation. X-ray of the right hip revealed no acute fracture or dislocation. white count 7.0. He will, and 8.0. Platelets 255.sodium 126. Potassium 6.1. BUN 57. Creatinine 1.55. Glucose 72. Urinalysis cloudy with moderate bacteria. Culture pending. Influenza screen negative. RSV negative. COVID-19 screen positive. The patient is vaccinated. Chest x-ray reveals a right lower lobe infiltrate and small effusion. She was initiated on Symbicort, Spiriva. Antibiotics in the form of ceftriaxone and azithromycin. Lasix 40 mg IV daily. Currently in a negative balance. The patient is seen today 06/22/2022 in follow-up on the elective care unit. She is awake and alert in no acute distress. She is sitting up in a chair at the bedside. She is feeling a bit better today compared to yesterday. No worsening shortness of breath, cough or congestion. She is maintaining good O2 saturations in the upper 90s on 2 L/m per nasal cannula. Afebrile. Hemodynamically stable. Urine culture positive for gram-negative bacilli. White count 4.9. Hemoglobin 8.0. D-dimer 0.49. Sodium 131. Potassium 5.5. Bicarb 27. BUN 50. Creatinine 1.22. LDH 446. C-reactive protein 2.7. Pro- calcitonin 0.11. She is continued on ceftriaxone and azithromycin. Remains on bronchodilators. Remains on IV diuretics. Currently in a -2.6 L balance. Anticoagulated with Eliquis. Objective - Vital Signs Vital signs: Vital Signs Temp 98.3 F 06/22/22 08:39 Pulse 72 06/22/22 08:39 Resp 20 06/22/22 08:39 BP 139/50 06/22/22 08:39 Pulse Ox 98 06/22/22 08:39 FiO2 Intake & Output 06/21/22 06/22/22 06/22/22 18:59 06:59 18:59 Intake Total 118 Output Total 800 1800 Balance -800 -1800 118 Weight 113.852 kg 114 kg Intake: Oral 118 Output: Urine 800 1800 Other: Voiding Method Indwelling Catheter Indwelling Catheter # Bowel Movements 1 - Exam GENERAL EXAM: Alert, morbidly obese 86-year-old female, on 2 L nasal cannula, up in a chair at the bedside, comfortable in no apparent distress. HEAD: Normocephalic. EYES: Normal reaction of pupils, equal size. NOSE: Clear with pink turbinates. THROAT: No erythema or exudates. NECK: No masses, no JVD. CHEST: No chest wall deformity. LUNGS: Equal air entry with crackles in the right lung base. CVS: S1 and S2 normal with no audible murmur, regular rhythm. ABDOMEN: No hepatosplenomegaly, normal bowel sounds, no guarding or rigidity. SPINE: No scoliosis or deformity SKIN: No rashes CENTRAL NERVOUS SYSTEM: No focal deficits, tone is normal in all 4 extremities. EXTREMITIES: There is 1+ peripheral edema. No clubbing, no cyanosis. Peripheral pulses are intact. - Labs CBC & Chem 7: 06/22/22 07:55 06/22/22 07:55 Labs: Abnormal Lab Results - Last 24 Hours (Table) 06/21/22 06/21/22 06/21/22 Range/Units 05:40 16:20 20:12 RBC (3.80-5.40) m/uL Hgb (11.4-16.0) gm/dL Hct (34.0-46.0) % MCHC (31.0-37.0) g/dL RDW (11.5-15.5) % Sodium 129 L (137-145) mmol/L Potassium 6.0 H (3.5-5.1) mmol/L Chloride 97 L (98-107) mmol/L BUN 50 H (7-17) mg/dL Creatinine 1.40 H (0.52-1.04) mg/dL Glucose 113 H (74-99) mg/dL POC Glucose (mg/dL) 220 H (70-110) mg/dL Calcium 7.9 L (8.4-10.2) mg/dL Magnesium (1.6-2.3) mg/dL C-Reactive Protein (<1.0) mg/dL Procalcitonin 0.11 H (0.02-0.09) ng/mL 06/22/22 06/22/22 Range/Units 07:55 07:55 RBC 2.93 L (3.80-5.40) m/uL Hgb 8.0 L (11.4-16.0) gm/dL Hct 26.9 L (34.0-46.0) % MCHC 29.5 L (31.0-37.0) g/dL RDW 16.5 H (11.5-15.5) % Sodium 131 L (137-145) mmol/L Potassium 5.5 H (3.5-5.1) mmol/L Chloride 96 L (98-107) mmol/L BUN 50 H (7-17) mg/dL Creatinine 1.22 H (0.52-1.04) mg/dL Glucose (74-99) mg/dL POC Glucose (mg/dL) (70-110) mg/dL Calcium 8.1 L (8.4-10.2) mg/dL Magnesium 2.4 H (1.6-2.3) mg/dL C-Reactive Protein 2.7 H (<1.0) mg/dL Procalcitonin (0.02-0.09) ng/mL Microbiology - Last 24 Hours (Table) 06/20/22 14:08 Urine Culture - Preliminary Urine,Voided Gram Neg Bacilli Assessment and Plan Assessment: Generalized weakness with fall suspect secondary to urinary tract infection, COVID-19 infection COVID-19 infection, currently on Decadron, vitamin supplements, Eliquis Acute hypoxic respiratory failure secondary to a right lower lobe infiltrate, currently on 2 L nasal cannula, stable Urinary tract infection, cultures revealing gram-negative bacilli Valvular heart disease with aortic valve stenosis and a preserved LV function History of atrial fibrillation, anticoagulated with Eliquis Small right-sided pleural effusion with some chronic changes in the right lower lobe Acute on chronic anemia History of COPD, from previous history of tobacco use. History of chronic diastolic CHF. CAD with previous stent placement. History of moderate aortic stenosis. History of CVA/TIA. History of diabetes mellitus. Morbid obesity. Hyperlipidemia. Hypertension. Hypothyroidism. Poor overall functional performance based on the above-mentioned multiple comorbidities Plan: The patient was seen and evaluated Labs and medications reviewed Continue ceftriaxone and azithromycin Continue Decadron 6 mg IV daily Continue vitamin supplements Anticoagulated with Eliquis Continue IV diuretics Titrate down the FiO2 as tolerated We will continue to follow I have personally seen and examined the patient, performed the documentation and the assessment and plan as written. Number of minutes spent on the visit: 10.
[2022-06-22 11:59] LABS: Glucose,Whole Blood 113 mg/dL (70-110)
[2022-06-22] MEDS: HYDROcodone/APAP 5-325MG 1 EACH TAB PO PRN (12:13)
[2022-06-22 16:49] LABS: Glucose,Whole Blood 159 mg/dL (70-110)
[2022-06-22] MEDS: ATORVASTATIN 40 MG TAB PO SCH (20:09)
[2022-06-22] MEDS: AMITRIPTYLINE HCL 50 MG TAB PO SCH (20:09)
[2022-06-22 20:30] LABS: Glucose,Whole Blood 149 mg/dL (70-110)
[2022-06-23 06:30] LABS: Glucose,Whole Blood 118 mg/dL (70-110)
[2022-06-23] MEDS: LEVOTHYROXINE 50 MCG TAB PO SCH (07:01)
[2022-06-23 08:03] LABS: Anisocytosis Slight; Basophils % (A) 0 %; Eosinophils % (A) 0 %; HCT 22.8 % (34.0-46.0); HGB 7.2 gm/dL (11.4-16.0); Hypochromasia Moderate; Lymphocytes # (A) 1.3 k/uL (1.0-4.8); Lymphocytes % (A) 30 %; MCH 27.9 pg (25.0-35.0); MCHC 31.4 g/dL (31.0-37.0); MCV 88.9 fL (80.0-100.0); Mean Platelet Volume 8.5; Monocytes # (A) 0.5 k/uL (0-1.0); Monocytes % (A) 10 %; Neutrophils # (A) 2.6 k/uL (1.3-7.7); Neutrophils % (A) 58 %; Platelet Count 294 k/uL (150-450); RBC 2.57 m/uL (3.80-5.40); RDW 16.7 % (11.5-15.5); WBC 4.5 k/uL (3.8-10.6)
[2022-06-23 08:22] LABS: Calcium 7.7 mg/dL (8.4-10.2); Potassium 5.1 mmol/L (3.5-5.1)
[2022-06-23] MEDS: TIOTROPIUM 2.5 MCG INHALER INHALATION SCH (08:46)
[2022-06-23] MEDS: SYMBICORT 80-4.5 MCG INHALER INHALATION SCH ×2 (08:46→19:07)
[2022-06-23] MEDS ORDERED: DOXYCYCLINE 100 MG CAP PO SCH (09:00)
[2022-06-23] MEDS: CIPROFLOXACIN HCL 500 MG TAB PO SCH ×2 (09:29→20:11)
[2022-06-23] MEDS: GABAPENTIN 300 MG CAP PO SCH ×3 (09:29→20:10)
[2022-06-23] MEDS: TAMSULOSIN 0.4 MG CAP.ER.24H PO SCH (09:29)
[2022-06-23] MEDS: FUROSEMIDE 10 MG/ML 4 ML VIAL IV SCH (09:29)
[2022-06-23] MEDS: ZINC SULFATE 220 MG CAP PO SCH (09:29)
[2022-06-23] MEDS: ASCORBIC ACID 500 MG TAB PO SCH (09:30)
[2022-06-23] MEDS: CHOLECALCIFEROL 125 MCG (5000 IU) TABLET PO SCH (09:30)
[2022-06-23] MEDS: METOPROLOL TARTRATE 25 MG TAB PO SCH ×2 (09:30→20:10)
[2022-06-23] MEDS: DEXAMETHASONE SOD PHOSPHATE 10 MG/ML 1 ML VIAL IVP SCH (09:30)
[2022-06-23] MEDS: AMIODARONE 200 MG TAB PO SCH (09:30)
[2022-06-23] MEDS: APIXABAN 2.5 MG TABLET PO SCH ×2 (09:30→20:11)
--- NOTE | 2022-06-23 11:13 | P.PN ---
Subjective Progress Note Date: 06/23/22 This is a pleasant 86-year-old female patient with a known history of coronary artery disease with previous stent placement, chronic obstructive pulmonary disease, former smoker, CVA/TIA, diabetes mellitus, hypertension, hyperlipidemia, obstructive sleep apnea, aortic stenosis, hypothyroidism, bilateral peripheral neuropathy utilizing walker/wheelchair, morbid obesity,poor functional performance. She was brought into the emergency room yesterday after falling from a standing position after she stood up from the breakfast table. She did sustain a laceration to her right medial ankle. X-ray revealed no acute fracture or dislocation. X-ray of the right hip revealed no acute fracture or dislocation. white count 7.0. He will, and 8.0. Platelets 255.sodium 126. Potassium 6.1. BUN 57. Creatinine 1.55. Glucose 72. Urinalysis cloudy with moderate bacteria. Culture pending. Influenza screen negative. RSV negative. COVID-19 screen positive. The patient is vaccinated. Chest x-ray reveals a right lower lobe infiltrate and small effusion. She was initiated on Symbicort, Spiriva. Antibiotics in the form of ceftriaxone and azithromycin. Lasix 40 mg IV daily. Currently in a negative balance. The patient is seen today 06/22/2022 in follow-up on the elective care unit. She is awake and alert in no acute distress. She is sitting up in a chair at the bedside. She is feeling a bit better today compared to yesterday. No worsening shortness of breath, cough or congestion. She is maintaining good O2 saturations in the upper 90s on 2 L/m per nasal cannula. Afebrile. Hemodynamically stable. Urine culture positive for gram-negative bacilli. White count 4.9. Hemoglobin 8.0. D-dimer 0.49. Sodium 131. Potassium 5.5. Bicarb 27. BUN 50. Creatinine 1.22. LDH 446. C-reactive protein 2.7. Pro- calcitonin 0.11. She is continued on ceftriaxone and azithromycin. Remains on bronchodilators. Remains on IV diuretics. Currently in a -2.6 L balance. Anticoagulated with Eliquis. The patient is seen today 06/23/2022 in follow-up on the elective care unit. She is resting comfortably in bed. Awake and alert in no acute distress. She denies any worsening shortness of breath, cough or congestion. She is maintaining O2 saturations in the 90s on 2 L/m per nasal cannula. She is continued on Symbicort, Spiriva, albuterol. Remains on Decadron and vitamin supplements. Anticoagulated with Eliquis. White count 4.5. Hemoglobin 7.2. Platelet count 294. Sodium 132. Potassium 5.1. BUN 46. Creatinine 1.00. Urine culture is positive for Klebsiella pneumoniae and Enterobacter Cloacae. She is currently on ceftriaxone and azithromycin. Objective - Vital Signs Vital signs: Vital Signs Temp 97.8 F 06/23/22 09:00 Pulse 77 06/23/22 09:00 Resp 20 06/23/22 09:00 BP 134/71 06/23/22 09:00 Pulse Ox 97 06/23/22 09:00 FiO2 Intake & Output 06/22/22 06/23/22 06/23/22 18:59 06:59 18:59 Intake Total 354 Output Total 1850 600 Balance -1496 -600 Weight 113.5 kg Intake: Oral 354 Output: Urine 1850 600 Other: Voiding Method Indwelling Catheter Indwelling Catheter Indwelling Catheter # Bowel Movements 1 - Exam GENERAL EXAM: Alert, morbidly obese 86-year-old female, on 2 L nasal cannula, resting in bed, comfortable in no apparent distress. HEAD: Normocephalic. EYES: Normal reaction of pupils, equal size. NOSE: Clear with pink turbinates. THROAT: No erythema or exudates. NECK: No masses, no JVD. CHEST: No chest wall deformity. LUNGS: Equal air entry with crackles in the right lung base. CVS: S1 and S2 normal with no audible murmur, regular rhythm. ABDOMEN: No hepatosplenomegaly, normal bowel sounds, no guarding or rigidity. SPINE: No scoliosis or deformity SKIN: No rashes CENTRAL NERVOUS SYSTEM: No focal deficits, tone is normal in all 4 extremities. EXTREMITIES: There is 1+ peripheral edema. No clubbing, no cyanosis. Peripheral pulses are intact. - Labs CBC & Chem 7: 06/23/22 07:07 06/23/22 07:07 Labs: Abnormal Lab Results - Last 24 Hours (Table) 06/22/22 06/22/22 06/22/22 Range/Units 11:44 16:40 20:28 RBC (3.80-5.40) m/uL Hgb (11.4-16.0) gm/dL Hct (34.0-46.0) % RDW (11.5-15.5) % Sodium (137-145) mmol/L BUN (7-17) mg/dL POC Glucose (mg/dL) 113 H 159 H 149 H (70-110) mg/dL Calcium (8.4-10.2) mg/dL 06/23/22 06/23/22 06/23/22 Range/Units 06:29 07:07 07:07 RBC 2.57 L (3.80-5.40) m/uL Hgb 7.2 L (11.4-16.0) gm/dL Hct 22.8 L (34.0-46.0) % RDW 16.7 H (11.5-15.5) % Sodium 132 L (137-145) mmol/L BUN 46 H (7-17) mg/dL POC Glucose (mg/dL) 118 H (70-110) mg/dL Calcium 7.7 L (8.4-10.2) mg/dL Microbiology - Last 24 Hours (Table) 06/20/22 14:08 Urine Culture - Final Urine,Voided Klebsiella pneumoniae Enterobacter cloacae Assessment and Plan Assessment: Generalized weakness with fall suspect secondary to urinary tract infection, COVID-19 infection COVID-19 infection, currently on Decadron, vitamin supplements, Eliquis Acute hypoxic respiratory failure secondary to a right lower lobe infiltrate, currently on 2 L nasal cannula, stable Urinary tract infection secondary to Klebsiella pneumoniae and enterococcus cloacae Valvular heart disease with aortic valve stenosis and a preserved LV function History of atrial fibrillation, anticoagulated with Eliquis Small right-sided pleural effusion with some chronic changes in the right lower lobe Acute on chronic anemia History of COPD, from previous history of tobacco use. History of chronic diastolic CHF. CAD with previous stent placement. History of moderate aortic stenosis. History of CVA/TIA. History of diabetes mellitus. Morbid obesity. Hyperlipidemia. Hypertension. Hypothyroidism. Poor overall functional performance based on the above-mentioned multiple comorbidities Plan: The patient was seen and evaluated Labs and medications reviewed Discontinue ceftriaxone and azithromycin Add ciprofloxacin Continue Decadron Continue vitamin supplements Anticoagulated with Eliquis Continue IV diuretics Titrate down the FiO2 as tolerated We will continue to follow I have personally seen and examined the patient, performed the documentation and the assessment and plan as written. Number of minutes spent on the visit: 10.
[2022-06-23 12:32] LABS: Glucose,Whole Blood 160 mg/dL (70-110)
--- NOTE | 2022-06-23 13:39 | P.PN ---
Subjective 06/21/22:But he's an 86-year-old white, female, well known to be from the practice. She has been in and out of The hospital five times this year for multiple conditions, including COPDUTI since CHF. She's been rehabilitated twice now at [facility] and [facility] is in the rose this year.She came to the emergency room after standing up and feeling very weak and falling. She's been also short of breath for the past 2 to 3 days. Patient recently had COVID-19 and was on pax livid. She's also recently seen in the office for a ICF follow up. This morning she is in bed, complaining some weakness and shortness breath. She denies any chest pains or nausea vomiting. Vital signs are stable with pulse ox symmetry at 90% of 2 L O2. Heart rate respirate blood pressure normal.Potassium has been as high as 7.0 and most recently was 6.1.She has received albuterol for the hyper kalemia. She has received azithromycin and ceftriaxone her antibiotic coverage. She remains on eliquis for a fib, anticoagulation, amiodarone for AFIB. she is not urinating at all and bladder scan showed greater than 600 cc of urine. A Hylton catheter is been brien She feels better this morning after medication. She has seen pulmonology and nephrology. 06/22/2022: Patient is reevaluated for her significant hyperkalemia, acute renal failure most likely due to urinary retention, hypervolemic hyponatremia, and her CHF. She COVID-19 last week. She is sleeping currently but easily arousable. No significant complaints at rest. No chest pains, pressures, shortness of breath. She has a Hylton catheter to gravity. Vital signs remained stable heart rate respirate rate pulse oximetry remains excellent on 2 L O2. Laboratory studies show her hemoglobin is stable at 8.0. Normal white count. Sodium 131, potassium is now 5.5, CO2 27 BUN 50 creatinine 1.22. Her magnesium is 2.4. C-reactive protein 2.7. GFR is calculated at 41. Urine culture shows greater than 100,000 gram-negative bacilli. Urinalysis from 1220 showed cloudy urine. While there are large leukocytes, there are no nitrites but some moderate bacteria noted. Chest x-ray from last indicates glomerular megaly with mild pulmonary vascular congestion. Ultrasound the kidneys show no evidence of obstructive uropathy. 06/23/2022: patient is Her recent fall, laceration to right foot, hyperkalemia, recent, acute renal failure, UTI, urinary retention, diastolic congestive heart failure, COVID-19, CAD and her other medical conditions. She currently denies any chest pains, pressures, shortness of breath. It is only with exertion. She denies any nausea or vomiting, but is not particularly hungry. Her main complaint today is just fatigue and weakness. Vital signs show that she remains afebrile, heart rate, Respiratory rate, blood pressure all in the normal range. Pulse ox in reach 90% on 2 L. Laboratory studies show her hemoglobin is personnel down to 7.2, but no white count. Chemistries are normalizing with sodium and 132, potassium 5.1. Glucose remains controlled You're in culture show Klebsiella, pneumonia, and Enterobacter. Rocephin and azithromycin been discontinued, she's been starting on ciprofloxacin. Objective - Vital Signs Vital signs: Vital Signs Temp 98 F 06/23/22 12:00 Pulse 65 06/23/22 12:00 Resp 20 06/23/22 12:00 BP 107/37 06/23/22 12:00 Pulse Ox 98 06/23/22 12:00 FiO2 Intake & Output 06/22/22 06/23/22 06/23/22 18:59 06:59 18:59 Intake Total 354 Output Total 1850 600 Balance -1496 -600 Weight 113.5 kg Intake: Oral 354 Output: Urine 1850 600 Other: Voiding Method Indwelling Catheter Indwelling Catheter Indwelling Catheter # Bowel Movements 1 - Exam General: Alert and oriented 3, lying in bed, sleeping, but easily arousable Neck: Supple, no JVD Cardiac: [Heart regularly irregular No S3. No S4. No clicks, rubs. Systolic murmur. Lungs: Unlabored, coarse with bibasilar rhonchi Abdomen: [Soft, nontender, No mass. No organomegaly. Bowel sounds presnt and normoactive in all 4 quadrants.] Extremes:+1l edema bilateral lower extremes no cyanosis no claudication normal pulses] Skin: [Warm and dry, No rash.]Laceration to the right foot is clean drain intact sutures are present. Neurologic: Cranial nerves II-12 grossly intact, no focal deficit - Labs CBC & Chem 7: 06/23/22 07:07 06/23/22 07:07 Labs: Abnormal Lab Results - Last 24 Hours (Table) 06/22/22 06/22/22 06/23/22 Range/Units 16:40 20:28 06:29 RBC (3.80-5.40) m/uL Hgb (11.4-16.0) gm/dL Hct (34.0-46.0) % RDW (11.5-15.5) % Sodium (137-145) mmol/L BUN (7-17) mg/dL POC Glucose (mg/dL) 159 H 149 H 118 H (70-110) mg/dL Calcium (8.4-10.2) mg/dL 06/23/22 06/23/22 06/23/22 Range/Units 07:07 07:07 12:30 RBC 2.57 L (3.80-5.40) m/uL Hgb 7.2 L (11.4-16.0) gm/dL Hct 22.8 L (34.0-46.0) % RDW 16.7 H (11.5-15.5) % Sodium 132 L (137-145) mmol/L BUN 46 H (7-17) mg/dL POC Glucose (mg/dL) 160 H (70-110) mg/dL Calcium 7.7 L (8.4-10.2) mg/dL Microbiology - Last 24 Hours (Table) 06/20/22 14:08 Urine Culture - Final Urine,Voided Klebsiella pneumoniae Enterobacter cloacae Assessment and Plan (1) COVID-19 Current Visit: Yes Status: Acute Code(s): U07.1 - COVID-19 SNOMED Code(s): 464874487 (2) Fall Current Visit: Yes Status: Acute Code(s): W19.XXXA - UNSPECIFIED FALL, INITIAL ENCOUNTER SNOMED Code(s): 5652488 (3) Hyperkalemia Current Visit: Yes Status: Resolved Code(s): E87.5 - HYPERKALEMIA SNOMED Code(s): 66366284 (4) Scalp laceration Current Visit: Yes Status: Acute Code(s): S01.01XA - LACERATION WITHOUT FOREIGN BODY OF SCALP, INITIAL ENCOUNTER SNOMED Code(s): 319690488 (5) Syncope Current Visit: Yes Status: Acute Code(s): R55 - SYNCOPE AND COLLAPSE SN OMED Code(s): 157933997 (6) Urinary retention Current Visit: Yes Status: Acute Code(s): R33.9 - RETENTION OF URINE, UNSPECIFIED SNOMED Code(s): 902845934 (7) Acute on chronic diastolic (congestive) heart failure Current Visit: No Status: Acute Code(s): I50.33 - ACUTE ON CHRONIC DIASTOLIC (CONGESTIVE) HEART FAILURE SNOMED Code(s): 719021529 (8) Acute on chronic renal failure Current Visit: No Status: Acute Code(s): N17.9 - ACUTE KIDNEY FAILURE, UNSPECIFIED; N18.9 - CHRONIC KIDNEY DISEASE, UNSPECIFIED SNOMED Code(s): 836720779 (9) Altered mental status Current Visit: No Status: Acute Code(s): R41.82 - ALTERED MENTAL STATUS, UNSPECIFIED SNOMED Code(s): 109164064 (10) Anemia Current Visit: No Status: Acute Code(s): D64.9 - ANEMIA, UNSPECIFIED SNOMED Code(s): 601724312 (11) CAD (coronary atherosclerotic disease) Current Visit: No Status: Acute Code(s): I25.10 - ATHSCL HEART DISEASE OF [place] CORONARY ARTERY W/O ANG PCTRS SNOMED Code(s): 117079250 (12) Hyponatremia Current Visit: Yes Status: Acute Code(s): E87.1 - HYPO-OSMOLALITY AND HYP ONATREMIA SNOMED Code(s): 86035587 (13) CKD (chronic kidney disease) stage 3, GFR 30-59 ml/min Current Visit: Yes Status: Acute Code(s): N18.30 - CHRONIC KIDNEY DISEASE, STAGE 3 UNSPECIFIED SNOMED Code(s): 012958685 (14) Acute renal failure Current Visit: No Status: Acute Code(s): N17.9 - ACUTE KIDNEY FAILURE, UNSPECIFIED SNOMED Code(s): 67612729 (15) Laceration of right ankle Current Visit: Yes Status: Acute Code(s): S91.011A - LACERATION WITHOUT FOREIGN BODY, RIGHT ANKLE, INIT ENCNTR SNOMED Code(s): 79064455242375077 (16) Laceration of right medial ankle Current Visit: Yes Status: Acute Code(s): S91.011A - LACERATION WITHOUT FOREIGN BODY, RIGHT ANKLE, INIT ENCNTR SNOMED Code(s): 58488913688266693 (17) Type 2 diabetes mellitus without complications Current Visit: No Status: Acute Code(s): E11.9 - TYPE 2 DIABETES MELLITUS WITHOUT COMPLICATIONS SNOMED Code(s): 785773133 (18) UTI (urinary tract infection) Current Visit: No Status: Acute Code(s): N39.0 - URINARY TRACT INFECTION, SITE NOT SPECIFIED SNOMED Code(s): 33115026 (19) Urinary tract infection Current Visit: No Status: Acute Code(s): N39.0 - URINARY TRACT INFECTION, SITE NOT SPECIFIED SNOMED Code(s): 12441824 Plan: Continue Hylton catheter to gravity. Continue antibiotic oif Cipro, monitor kidney function closely Continue on furosemide for diuresis of her congestive heart failure. She will continue on hydrocodone for back pain.continueon her other medications as reviewed in the medical record this morning.Should continue on Decadron and other medication's for Covid We'll repeat labs in am. Wait on further recommendations from pulmonology and nephrology, to be reevaluated next 24 hours
--- NOTE | 2022-06-23 16:12 | P.PN ---
Subjective Progress Note Date: 06/23/22 Follow-up for acute kidney injury and hyperkalemia. Good urine output 2.4 L in the last 24 hours, indwelling Hylton catheter. Objective - Vital Signs Vital signs: Vital Signs Temp 98 F 06/23/22 12:00 Pulse 65 06/23/22 12:00 Resp 20 06/23/22 12:00 BP 107/37 06/23/22 12:00 Pulse Ox 98 06/23/22 12:00 FiO2 Intake & Output 06/22/22 06/23/22 06/23/22 18:59 06:59 18:59 Intake Total 354 Output Total 1850 600 Balance -1496 -600 Weight 113.5 kg Intake: Oral 354 Output: Urine 1850 600 Other: Voiding Method Indwelling Catheter Indwelling Catheter Indwelling Catheter # Bowel Movements 1 - Exam No acute distress S1-S2 heard Decreased breath sounds Hylton catheter Edema - Labs CBC & Chem 7: 06/23/22 07:07 06/23/22 07:07 Labs: Abnormal Lab Results - Last 24 Hours (Table) 06/22/22 06/22/22 06/23/22 Range/Units 16:40 20:28 06:29 RBC (3.80-5.40) m/uL Hgb (11.4-16.0) gm/dL Hct (34.0-46.0) % RDW (11.5-15.5) % Sodium (137-145) mmol/L BUN (7-17) mg/dL POC Glucose (mg/dL) 159 H 149 H 118 H (70-110) mg/dL Calcium (8.4-10.2) mg/dL 06/23/22 06/23/22 06/23/22 Range/Units 07:07 07:07 12:30 RBC 2.57 L (3.80-5.40) m/uL Hgb 7.2 L (11.4-16.0) gm/dL Hct 22.8 L (34.0-46.0) % RDW 16.7 H (11.5-15.5) % Sodium 132 L (137-145) mmol/L BUN 46 H (7-17) mg/dL POC Glucose (mg/dL) 160 H (70-110) mg/dL Calcium 7.7 L (8.4-10.2) mg/dL Microbiology - Last 24 Hours (Table) 06/20/22 14:08 Urine Culture - Final Urine,Voided Klebsiella pneumoniae Enterobacter cloacae Assessment and Plan Assessment: #1 acute kidney injury secondary to urinary retention. #2 hyperkalemia secondary to urinary retention, improved after Hylton. #3 Covid 19 infection #4 volume overload #5 hypervolemic hyponatremia. Plan: #1 renal function and potassium back to baseline. #2 continue with Lasix, sodium improving. #3 daily renal labs
[2022-06-23 16:20] LABS: Glucose,Whole Blood 194 mg/dL (70-110)
[2022-06-23] MEDS: SODIUM CHLORIDE 0.9% 1,000 ML IV SCH (17:20)
[2022-06-23] MEDS: AZITHROMYCIN 500 MG in SODIUM CHLORIDE 0.9% 250 ML IVPB SCH (19:40)
[2022-06-23 19:52] LABS: Glucose,Whole Blood 165 mg/dL (70-110)
[2022-06-23] MEDS: AMITRIPTYLINE HCL 50 MG TAB PO SCH (20:10)
[2022-06-23] MEDS: ATORVASTATIN 40 MG TAB PO SCH (20:10)
[2022-06-24 06:00] LABS: Glucose,Whole Blood 128 mg/dL (70-110)
[2022-06-24] MEDS: LEVOTHYROXINE 50 MCG TAB PO SCH (06:50)
[2022-06-24] MEDS: TIOTROPIUM 2.5 MCG INHALER INHALATION SCH (07:54)
[2022-06-24] MEDS: SYMBICORT 80-4.5 MCG INHALER INHALATION SCH ×2 (07:54→19:47)
[2022-06-24 09:05] LABS: Calcium 8.2 mg/dL (8.4-10.2)
[2022-06-24 09:19] LABS: Anisocytosis Slight; Basophils % (A) 0 %; Eosinophils % (A) 0 %; HCT 25.3 % (34.0-46.0); HGB 7.9 gm/dL (11.4-16.0); Hypochromasia Marked; Lymphocytes # (A) 1.5 k/uL (1.0-4.8); Lymphocytes % (A) 32 %; MCHC 31.2 g/dL (31.0-37.0); MCV 89.5 fL (80.0-100.0); Mean Platelet Volume 8.4; Monocytes # (A) 0.4 k/uL (0-1.0); Monocytes % (A) 9 %; Neutrophils # (A) 2.6 k/uL (1.3-7.7); Neutrophils % (A) 58 %; Platelet Count 333 k/uL (150-450); RBC 2.83 m/uL (3.80-5.40); RDW 16.5 % (11.5-15.5); WBC 4.6 k/uL (3.8-10.6)
[2022-06-24] MEDS: ZINC SULFATE 220 MG CAP PO SCH (09:39)
[2022-06-24] MEDS: APIXABAN 2.5 MG TABLET PO SCH ×2 (09:39→20:44)
[2022-06-24] MEDS: GABAPENTIN 300 MG CAP PO SCH ×3 (09:40→20:45)
[2022-06-24] MEDS: AMIODARONE 200 MG TAB PO SCH (09:40)
[2022-06-24] MEDS: CHOLECALCIFEROL 125 MCG (5000 IU) TABLET PO SCH (09:40)
[2022-06-24] MEDS: METOPROLOL TARTRATE 25 MG TAB PO SCH ×2 (09:40→20:45)
[2022-06-24] MEDS: CIPROFLOXACIN HCL 500 MG TAB PO SCH ×2 (09:40→20:43)
[2022-06-24] MEDS: ASCORBIC ACID 500 MG TAB PO SCH (09:40)
[2022-06-24] MEDS: TAMSULOSIN 0.4 MG CAP.ER.24H PO SCH (09:40)
[2022-06-24] MEDS: DEXAMETHASONE SOD PHOSPHATE 10 MG/ML 1 ML VIAL IVP SCH (09:41)
[2022-06-24] MEDS: FUROSEMIDE 10 MG/ML 4 ML VIAL IV SCH (09:41)
[2022-06-24 11:58] LABS: Glucose,Whole Blood 129 mg/dL (70-110)
--- NOTE | 2022-06-24 12:58 | P.PN ---
Subjective 06/21/22:But he's an 86-year-old white, female, well known to be from the practice. She has been in and out of The hospital five times this year for multiple conditions, including COPDUTI since CHF. She's been rehabilitated twice now at [facility] and [facility] is in the [facility] this [facility].She came to the emergency room after standing up and feeling very weak and falling. She's been also short of breath for the past 2 to 3 days. Patient recently had COVID-19 and was on pax livid. She's also recently seen in the office for a ICF follow up. This morning she is in bed, complaining some weakness and shortness breath. She denies any chest pains or nausea vomiting. Vital signs are stable with pulse ox symmetry at 90% of 2 L O2. Heart rate respirate blood pressure normal.Potassium has been as high as 7.0 and most recently was 6.1.She has received albuterol for the hyper kalemia. She has received azithromycin and ceftriaxone her antibiotic coverage. She remains on eliquis for a fib, anticoagulation, amiodarone for AFIB. she is not urinating at all and bladder scan showed greater than 600 cc of urine. A Hylton catheter is been brien She feels better this morning after medication. She has seen pulmonology and nephrology. 06/22/2022: Patient is reevaluated for her significant hyperkalemia, acute renal failure most likely due to urinary retention, hypervolemic hyponatremia, and her CHF. She COVID-19 last week. She is sleeping currently but easily arousable. No significant complaints at rest. No chest pains, pressures, shortness of breath. She has a Hylton catheter to gravity. Vital signs remained stable heart rate respirate rate pulse oximetry remains excellent on 2 L O2. Laboratory studies show her hemoglobin is stable at 8.0. Normal white count. Sodium 131, potassium is now 5.5, CO2 27 BUN 50 creatinine 1.22. Her magnesium is 2.4. C-reactive protein 2.7. GFR is calculated at 41. Urine culture shows greater than 100,000 gram-negative bacilli. Urinalysis from 1220 showed cloudy urine. While there are large leukocytes, there are no nitrites but some moderate bacteria noted. Chest x-ray from last indicates glomerular megaly with mild pulmonary vascular congestion. Ultrasound the kidneys show no evidence of obstructive uropathy. 06/23/2022: patient is Her recent fall, laceration to right foot, hyperkalemia, recent, acute renal failure, UTI, urinary retention, diastolic congestive heart failure, COVID-19, CAD and her other medical conditions. She currently denies any chest pains, pressures, shortness of breath. It is only with exertion. She denies any nausea or vomiting, but is not particularly hungry. Her main complaint today is just fatigue and weakness. Vital signs show that she remains afebrile, heart rate, Respiratory rate, blood pressure all in the normal range. Pulse ox in reach 90% on 2 L. Laboratory studies show her hemoglobin is personnel down to 7.2, but no white count. Chemistries are normalizing with sodium and 132, potassium 5.1. Glucose remains controlled You're in culture show Klebsiella, pneumonia, and Enterobacter. Rocephin and azithromycin been discontinued, she's been starting on ciprofloxacin. 06/24/2022: Patient is reevaluated for COVID-19, hyperkalemia, acute renal failure, urinary retention and UTI, diastolic congestive heart failure. She is feeling a little bit better today. Vital signs remained stable today with slightly elevated blood pressure. He remains afebrile. Hemoglobin is 27.9. Diabetes count is 4.6 with no left shift. Chemistries now show sodium 134 p otassium 5.0. BUN is now 43 creatinine 0.98. Glucose remained stable. Patient remains on Cipro for antibiotic coverage. She remains on furosemide for fluid overload. Dressings are in place for her laceration to her right ankle and forehead. Objective - Vital Signs Vital signs: Vital Signs Temp 97.8 F 06/24/22 09:35 Pulse 69 06/24/22 09:35 Resp 16 06/24/22 09:35 BP 150/61 06/24/22 09:35 Pulse Ox 98 06/24/22 09:35 FiO2 Intake & Output 06/23/22 06/24/22 06/24/22 18:59 06:59 18:59 Intake Total 120 600 Output Total 1250 850 Balance -1250 120 -250 Weight 112 kg Intake: Oral 120 600 Output: Urine 1250 850 Other: Voiding Method Indwelling Catheter Indwelling Catheter Indwelling Catheter - Exam General: Alert and oriented 3, today. Neck: Supple, no JVD Cardiac: Heart regularly irregular No S3. No S4. No clicks, rubs. Systolic murmur. Lungs: Unlabored, coarse with bibasilar rhonchi Abdomen: Soft, nontender, No mass. No organomegaly. Bowel sounds presnt and normoactive in all 4 quadrants. Extremes:+1l edema bilateral lower extremes no cyanosis no claudication normal pulses Skin: Warm and dry, No rash.Laceration to the right foot is clean drain intact sutures are present. Neurologic: Cranial nerves II-12 grossly intact, no focal deficit - Labs CBC & Chem 7: 06/24/22 08:02 06/24/22 08:02 Labs: Abnormal Lab Results - Last 24 Hours (Table) 06/23/22 06/23/22 06/24/22 Range/Units 16:19 19:50 05:59 RBC (3.80-5.40) m/uL Hgb (11.4-16.0) gm/dL Hct (34.0-46.0) % RDW (11.5-15.5) % Sodium (137-145) mmol/L BUN (7-17) mg/dL Glucose (74-99) mg/dL POC Glucose (mg/dL) 194 H 165 H 128 H (70-110) mg/dL Calcium (8.4-10.2) mg/dL 06/24/22 06/24/22 06/24/22 Range/Units 08:02 08:02 11:43 RBC 2.83 L (3.80-5.40) m/uL Hgb 7.9 L (11.4-16.0) gm/dL Hct 25.3 L (34.0-46.0) % RDW 16.5 H (11.5-15.5) % Sodium 134 L (137-145) mmol/L BUN 43 H (7-17) mg/dL Glucose 104 H (74-99) mg/dL POC Glucose (mg/dL) 129 H (70-110) mg/dL Calcium 8.2 L (8.4-10.2) mg/dL Assessment and Plan (1) COVID-19 Current Visit: Yes Status: Acute Code(s): U07.1 - COVID-19 SNOMED Code(s): 004512283 (2) Fall Current Visit: Yes Status: Acute Code(s): W19.XXXA - UNSPECIFIED FALL, INITIAL ENCOUNTER SNOMED Code(s): 1796210 (3) Hyperkalemia Current Visit: Yes Status: Resolved Code(s): E87.5 - HYPERKALEMIA SNOMED Code(s): 36845346 (4) Scalp laceration Current Visit: Yes Status: Acute Code(s): S01.01XA - LACERATION WITHOUT FOREIGN BODY OF SCALP, INITIAL ENCOUNTER SNOMED Code(s): 395376623 (5) Syncope Current Visit: Yes Status: Acute Code(s): R55 - SYNCOPE AND COLLAPSE SNOMED Code(s): 439067005 (6) Urinary retention Current Visit: Yes Status: Acute Code(s): R33.9 - RETENTION OF URINE, UNSPECIFIED SNOMED Code(s): 566424237 (7) Acute on chronic diastolic (congestive) heart failure Current Visit: No Status: Acute Code(s): I50.33 - ACUTE ON CHRONIC DIASTOLIC (CONGESTIVE) HEART FAILURE SNOMED Code(s): 206242499 (8) Acute on chronic renal failure Current Visit: No Status: Acute Code(s): N17.9 - ACUTE KIDNEY FAILURE, UNSPECIFIED; N18.9 - CHRONIC KIDNEY DISEASE, UNSPECIFIED SNOMED Code(s): 451407694 (9) Altered mental status Current Visit: No Status: Acute Code(s): R41.82 - ALTERED MENTAL STATUS, UNSPECIFIED SNOMED Code(s): 135375567 (10) Anemia Current Visit: No Status: Acute Code(s): D64.9 - ANEMIA, UNSPECIFIED SNOMED Code(s): 469362849 (11) CAD (coronary atherosclerotic disease) Current Visit: No Status: Acute Code(s): I25.10 - ATHSCL HEART DISEASE OF [place] CORONARY ARTERY W/O ANG PCTRS SNOMED Code(s): 693929509 (12) Hyponatremia Current Visit: Yes Status: Acute Code(s): E87.1 - HYPO-OSMOLALITY AND HYPONATREMIA SNOMED Code(s): 48455732 (13) CKD (chronic kidney disease) stage 3, GFR 30-59 ml/min Current Visit: Yes Status: Acute Code(s): N18.30 - CHRONIC KIDNEY DISEASE, STAGE 3 UNSPECIFIED SNOMED Code(s): 443779706 (14) Acute renal failure Current Visit: No Status: Acute Code(s): N17.9 - ACUTE KIDNEY FAILURE, UNSPECIFIED SNOMED Code(s): 51023133 (15) Laceration of right ankle Current Visit: Yes Status: Acute Code(s): S91.011A - LACERATION WITHOUT FOREIGN BODY, RIGHT ANKLE, INIT ENCNTR SNOMED Code(s): 25926494770608284 (16) Laceration of right medial ankle Current Visit: Yes Status: Acute Code(s): S91.011A - LACERATION WITHOUT FOREIGN BODY, RIGHT ANKLE, INIT ENCNTR SNOMED Code(s): 61167749014559346 (17) Type 2 diabetes mellitus without complications Current Visit: No Status: Acute Code(s): E11.9 - TYPE 2 DIABETES MELLITUS WITHOUT COMPLICATIONS SNOMED Code(s): 065406260 (18) UTI (urinary tract infection) Current Visit: No Status: Acute Code(s): N39.0 - URINARY TRACT INFECTION, SITE NOT SPECIFIED SNOMED Code(s): 48828131 (19) Urinary tract infection Current Visit: No Status: Acute Code(s): N39.0 - URINARY TRACT INFECTION, SITE NOT SPECIFIED SNOMED Code(s): 63497801 Plan: Continue Hylton catheter to gravity. Continue antibiotic oif Cipro, monitor kidney function closely Continue on furosemide for diuresis of her congestive heart failure. She will continue on hydrocodone for back pain.continue her other medications as reviewed in the medical record this morning.Should continue on Decadron and other medication's for Covid continue Decadron for her Covid. Her sugar closely, and NovoLog scale We'll repeat labs in am. Wait on further recommendations from pulmonology and nephrology, to be reevaluated next 24 hours
--- NOTE | 2022-06-24 13:42 | P.PN ---
Subjective Progress Note Date: 06/24/22 This is a pleasant 86-year-old female patient with a known history of coronary artery disease with previous stent placement, chronic obstructive pulmonary disease, former smoker, CVA/TIA, diabetes mellitus, hypertension, hyperlipidemia, obstructive sleep apnea, aortic stenosis, hypothyroidism, bilateral peripheral neuropathy utilizing walker/wheelchair, morbid obesity,poor functional performance. She was brought into the emergency room yesterday after falling from a standing position after she stood up from the breakfast table. She did sustain a laceration to her right medial ankle. X-ray revealed no acute fracture or dislocation. X-ray of the right hip revealed no acute fracture or dislocation. white count 7.0. He will, and 8.0. Platelets 255.sodium 126. Potassium 6.1. BUN 57. Creatinine 1.55. Glucose 72. Urinalysis cloudy with moderate bacteria. Culture pending. Influenza screen negative. RSV negative. COVID-19 screen positive. The patient is vaccinated. Chest x-ray reveals a right lower lobe infiltrate and small effusion. She was initiated on Symbicort, Spiriva. Antibiotics in the form of ceftriaxone and azithromycin. Lasix 40 mg IV daily. Currently in a negative balance. The patient is seen today 06/22/2022 in follow-up on the elective care unit. She is awake and alert in no acute distress. She is sitting up in a chair at the bedside. She is feeling a bit better today compared to yesterday. No worsening shortness of breath, cough or congestion. She is maintaining good O2 saturations in the upper 90s on 2 L/m per nasal cannula. Afebrile. Hemodynamically stable. Urine culture positive for gram-negative bacilli. White count 4.9. Hemoglobin 8.0. D-dimer 0.49. Sodium 131. Potassium 5.5. Bicarb 27. BUN 50. Creatinine 1.22. LDH 446. C-reactive protein 2.7. Pro- calcitonin 0.11. She is continued on ceftriaxone and azithromycin. Remains on bronchodilators. Remains on IV diuretics. Currently in a -2.6 L balance. Anticoagulated with Eliquis. The patient is seen today 06/23/2022 in follow-up on the elective care unit. She is resting comfortably in bed. Awake and alert in no acute distress. She denies any worsening shortness of breath, cough or congestion. She is maintaining O2 saturations in the 90s on 2 L/m per nasal cannula. She is continued on Symbicort, Spiriva, albuterol. Remains on Decadron and vitamin supplements. Anticoagulated with Eliquis. White count 4.5. Hemoglobin 7.2. Platelet count 294. Sodium 132. Potassium 5.1. BUN 46. Creatinine 1.00. Urine culture is positive for Klebsiella pneumoniae and Enterobacter Cloacae. She is currently on ceftriaxone and azithromycin. The patient is seen today 06/24/2022 in follow-up on the selective care unit. She is currently awake and alert in no acute distress. Resting comfortably in bed. Feeling a bit better today compared to yesterday. Maintaining O2 satur ations in the high 90s to 100% on 2 L/m per nasal cannula. Afebrile. Hemodynamically stable. She is continued on Symbicort, Spiriva. She remains on Decadron. Eliquis for anticoagulation. Vitamin supplements. Continued on Cipro for UTI secondary to Klebsiella pneumoniae and Enterobacter cloacae. Continued on IV diuretics. Currently in a -2 L balance. White count 4.6. Hemoglobin 7.9. Platelets 333. Sodium 134. Potassium 5.0. BUN 43. Creatinine 0.98. Glucose 104. Objective - Vital Signs Vital signs: Vital Signs Temp 98.4 F 06/24/22 12:25 Pulse 65 06/24/22 12:25 Resp 18 06/24/22 12:25 BP 149/67 06/24/22 12:25 Pulse Ox 100 06/24/22 12:25 FiO2 Intake & Output 06/23/22 06/24/22 06/24/22 18:59 06:59 18:59 Intake Total 120 600 Output Total 1250 850 Balance -1250 120 -250 Weight 112 kg Intake: Oral 120 600 Output: Urine 1250 850 Other: Voiding Method Indwelling Catheter Indwelling Catheter Indwelling Catheter - Exam GENERAL EXAM: Alert, morbidly obese 86-year-old female, on 2 L nasal cannula, comfortable in no apparent distress. HEAD: Normocephalic. EYES: Normal reaction of pupils, equal size. NOSE: Clear with pink turbinates. THROAT: No erythema or exudates. NECK: No masses, no JVD. CHEST: No chest wall deformity. LUNGS: Equal air entry with crackles in the right lung base. CVS: S1 and S2 normal with no audible murmur, regular rhythm. ABDOMEN: No hepatosplenomegaly, normal bowel sounds, no guarding or rigidity. SPINE: No scoliosis or deformity SKIN: No rashes CENTRAL NERVOUS SYSTEM: No focal deficits, tone is normal in all 4 extremities. EXTREMITIES: There is 1+ peripheral edema. No clubbing, no cyanosis. Peripheral pulses are intact. - Labs CBC & Chem 7: 06/24/22 08:02 06/24/22 08:02 Labs: Abnormal Lab Results - Last 24 Hours (Table) 06/23/22 06/23/22 06/24/22 Range/Units 16:19 19:50 05:59 RBC (3.80-5.40) m/uL Hgb (11.4-16.0) gm/dL Hct (34.0-46.0) % RDW (11.5-15.5) % Sodium (137-145) mmol/L BUN (7-17) mg/dL Glucose (74-99) mg/dL POC Glucose (mg/dL) 194 H 165 H 128 H (70-110) mg/dL Calcium (8.4-10.2) mg/dL 06/24/22 06/24/22 06/24/22 Range/Units 08:02 08:02 11:43 RBC 2.83 L (3.80-5.40) m/uL Hgb 7.9 L (11.4-16.0) gm/dL Hct 25.3 L (34.0-46.0) % RDW 16.5 H (11.5-15.5) % Sodium 134 L (137-145) mmol/L BUN 43 H (7-17) mg/dL Glucose 104 H (74-99) mg/dL POC Glucose (mg/dL) 129 H (70-110) mg/dL Calcium 8.2 L (8.4-10.2) mg/dL Assessment and Plan Assessment: Generalized weakness with fall suspect secondary to urinary tract infection, COVID-19 infection COVID-19 infection, currently on Decadron, vitamin supplements, Eliquis Acute hypoxic respiratory failure secondary to a right lower lobe infiltrate, currently on 2 L nasal cannula, stable Urinary tract infection secondary to Klebsiella pneumoniae and enterococcus cloacae Valvular heart disease with aortic valve stenosis and a preserved LV function History of atrial fibrillation, anticoagulated with Eliquis Small right-sided pleural effusion with some chronic changes in the right lower lobe Acute on chronic anemia History of COPD, from previous history of tobacco use. History of chronic diastolic CHF. CAD with previous stent placement. History of moderate aortic stenosis. History of CVA/TIA. History of diabetes mellitus. Morbid obesity. Hyperlipidemia. Hypertension. Hypothyroidism. Poor overall functional performance based on the above-mentioned multiple comorbidities Plan: The patient was seen and evaluated Labs and medications reviewed Continue ciprofloxacin Continue Decadron Continue vitamin supplements Anticoagulated with Eliquis Continue diuretics Titrate down the FiO2 as tolerated Plan is for subacute rehabilitation We will continue to follow I have personally seen and examined the patient, performed the documentation and the assessment and plan as written. Number of minutes spent on the visit: 10.
--- NOTE | 2022-06-24 15:40 | P.PN ---
Subjective Progress Note Date: 06/24/22 Follow-up for acute kidney injury and hyperkalemia. Good urine output 1.2 L in the last 24 hours, indwelling Hylton catheter. Objective - Vital Signs Vital signs: Vital Signs Temp 98.4 F 06/24/22 12:25 Pulse 65 06/24/22 12:25 Resp 18 06/24/22 12:25 BP 149/67 06/24/22 12:25 Pulse Ox 100 06/24/22 12:25 FiO2 Intake & Output 06/23/22 06/24/22 06/24/22 18:59 06:59 18:59 Intake Total 120 600 Output Total 1250 850 Balance -1250 120 -250 Weight 112 kg Intake: Oral 120 600 Output: Urine 1250 850 Other: Voiding Method Indwelling Catheter Indwelling Catheter Indwelling Catheter - Exam No acute distress S1-S2 heard Decreased breath sounds Hylton catheter Edema - Labs CBC & Chem 7: 06/24/22 08:02 06/24/22 08:02 Labs: Abnormal Lab Results - Last 24 Hours (Table) 06/23/22 06/23/22 06/24/22 Range/Units 16:19 19:50 05:59 RBC (3.80-5.40) m/uL Hgb (11.4-16.0) gm/dL Hct (34.0-46.0) % RDW (11.5-15.5) % Sodium (137-145) mmol/L BUN (7-17) mg/dL Glucose (74-99) mg/dL POC Glucose (mg/dL) 194 H 165 H 128 H (70-110) mg/dL Calcium (8.4-10.2) mg/dL 06/24/22 06/24/22 06/24/22 Range/Units 08:02 08:02 11:43 RBC 2.83 L (3.80-5.40) m/uL Hgb 7.9 L (11.4-16.0) gm/dL Hct 25.3 L (34.0-46.0) % RDW 16.5 H (11.5-15.5) % Sodium 134 L (137-145) mmol/L BUN 43 H (7-17) mg/dL Glucose 104 H (74-99) mg/dL POC Glucose (mg/dL) 129 H (70-110) mg/dL Calcium 8.2 L (8.4-10.2) mg/dL Assessment and Plan Assessment: #1 acute kidney injury secondary to urinary retention. #2 hyperkalemia secondary to urinary retention, improved after Hylton. #3 Covid 19 infection #4 volume overload #5 hypervolemic hyponatremia. Plan: #1 renal function and potassium back to baseline. #2 continue with Lasix, sodium improving. #3 daily renal labs
[2022-06-24] MEDS: SODIUM CHLORIDE 0.9% 1,000 ML IV SCH (16:04)
[2022-06-24 17:11] LABS: Glucose,Whole Blood 194 mg/dL (70-110)
[2022-06-24] MEDS: INSULIN ASPART (NovoLOG) 100 UNIT/ML VIAL SQ SCH ×2 (17:26→20:45)
[2022-06-24 19:41] LABS: Glucose,Whole Blood 273 mg/dL (70-110)
[2022-06-24] MEDS: AMITRIPTYLINE HCL 50 MG TAB PO SCH (20:44)
[2022-06-24] MEDS: ATORVASTATIN 40 MG TAB PO SCH (20:44)
[2022-06-25 06:11] LABS: Glucose,Whole Blood 122 mg/dL (70-110)
[2022-06-25] MEDS: INSULIN ASPART (NovoLOG) 100 UNIT/ML VIAL SQ SCH ×4 (06:15→21:30)
[2022-06-25] MEDS: LEVOTHYROXINE 50 MCG TAB PO SCH (06:29)
[2022-06-25 07:50] LABS: Anisocytosis Slight; Basophils % (A) 0 %; Eosinophils % (A) 0 %; HCT 25.4 % (34.0-46.0); HGB 8.2 gm/dL (11.4-16.0); Hypochromasia Slight; Lymphocytes # (A) 1.6 k/uL (1.0-4.8); Lymphocytes % (A) 29 %; MCH 27.9 pg (25.0-35.0); MCHC 32.1 g/dL (31.0-37.0); MCV 86.8 fL (80.0-100.0); Mean Platelet Volume 8.8; Monocytes # (A) 0.7 k/uL (0-1.0); Monocytes % (A) 12 %; Neutrophils # (A) 3.2 k/uL (1.3-7.7); Neutrophils % (A) 57 %; Platelet Count 329 k/uL (150-450); RBC 2.93 m/uL (3.80-5.40); RDW 16.6 % (11.5-15.5); WBC 5.6 k/uL (3.8-10.6)
[2022-06-25 08:11] LABS: Calcium 7.9 mg/dL (8.4-10.2); Potassium 4.7 mmol/L (3.5-5.1)
[2022-06-25] MEDS: METOPROLOL TARTRATE 25 MG TAB PO SCH ×2 (08:37→21:29)
[2022-06-25] MEDS: ZINC SULFATE 220 MG CAP PO SCH (08:37)
[2022-06-25] MEDS: AMIODARONE 200 MG TAB PO SCH (08:37)
[2022-06-25] MEDS: ASCORBIC ACID 500 MG TAB PO SCH (08:37)
[2022-06-25] MEDS: GABAPENTIN 300 MG CAP PO SCH ×3 (08:37→21:29)
[2022-06-25] MEDS: CHOLECALCIFEROL 125 MCG (5000 IU) TABLET PO SCH (08:38)
[2022-06-25] MEDS: DEXAMETHASONE SOD PHOSPHATE 10 MG/ML 1 ML VIAL IVP SCH (08:38)
[2022-06-25] MEDS: FUROSEMIDE 10 MG/ML 4 ML VIAL IV SCH (08:38)
[2022-06-25] MEDS: CIPROFLOXACIN HCL 500 MG TAB PO SCH ×2 (08:38→21:29)
[2022-06-25] MEDS: APIXABAN 2.5 MG TABLET PO SCH ×2 (08:38→21:29)
[2022-06-25] MEDS: TAMSULOSIN 0.4 MG CAP.ER.24H PO SCH (08:38)
[2022-06-25] MEDS: TIOTROPIUM 2.5 MCG INHALER INHALATION SCH (09:27)
[2022-06-25] MEDS: SYMBICORT 80-4.5 MCG INHALER INHALATION SCH ×2 (09:27→20:36)
[2022-06-25 11:51] LABS: Glucose,Whole Blood 228 mg/dL (70-110)
--- NOTE | 2022-06-25 12:06 | P.PN ---
Subjective Progress Note Date: 06/25/22 Principal diagnosis: Acute hypoxic respiratory failure secondary to right lower lobe pneumonia and COVID-19 infection This is a pleasant 86-year-old female patient with a known history of coronary artery disease with previous stent placement, chronic obstructive pulmonary disease, former smoker, CVA/TIA, diabetes mellitus, hypertension, hyperlipidemia, obstructive sleep apnea, aortic stenosis, hypothyroidism, bilateral peripheral neuropathy utilizing walker/wheelchair, morbid obesity,poor functional performance. She was brought into the emergency room yesterday after falling from a standing position after she stood up from the breakfast table. She did sustain a laceration to her right medial ankle. X-ray revealed no acute fracture or dislocation. X-ray of the right hip revealed no acute fracture or dislocation. white count 7.0. He will, and 8.0. Platelets 255.sodium 126. Potassium 6.1. BUN 57. Creatinine 1.55. Glucose 72. Urinalysis cloudy with moderate bacteria. Culture pending. Influenza screen negative. RSV negative. COVID-19 screen positive. The patient is vaccinated. Chest x-ray reveals a right lower lobe infiltrate and small effusion. She was initiated on Symbicort, Spiriva. Antibiotics in the form of ceftriaxone and azithromycin. Lasix 40 mg IV daily. Currently in a negative balance. The patient is seen today 06/22/2022 in follow-up on the elective care unit. She is awake and alert in no acute distress. She is sitting up in a chair at the bedside. She is feeling a bit better today compared to yesterday. No worsening shortness of breath, cough or congestion. She is maintaining good O2 saturations in the upper 90s on 2 L/m per nasal cannula. Afebrile. Hemodynamically stable. Urine culture positive for gram-negative bacilli. White count 4.9. Hemoglobin 8.0. D-dimer 0.49. Sodium 131. Potassium 5.5. Bicarb 27. BUN 50. Creatinine 1.22. LDH 446. C-reactive protein 2.7. Pro- calcitonin 0.11. She is continued on ceftriaxone and azithromycin. Remains on bronchodilators. Remains on IV diuretics. Currently in a -2.6 L balance. Anticoagulated with Eliquis. The patient is seen today 06/23/2022 in follow-up on the elective care unit. She is resting comfortably in bed. Awake and alert in no acute distress. She denies any worsening shortness of breath, cough or congestion. She is maintaining O2 saturations in the 90s on 2 L/m per nasal cannula. She is continued on Symbicort, Spiriva, albuterol. Remains on Decadron and vitamin supplements. Anticoagulated with Eliquis. White count 4.5. Hemoglobin 7.2. Platelet count 294. Sodium 132. Potassium 5.1. BUN 46. Creatinine 1.00. Urine culture is positive for Klebsiella pneumoniae and Enterobacter Cloacae. She is currently on ceftriaxone and azithromycin. The patient is seen today 06/24/2022 in follow-up on the selective care unit. She is currently awake and alert in no acute distress. Resting comfortably in bed. Feeling a bit better today compared to yesterday. Maintaining O2 saturations in the high 90s to 100% on 2 L/m per nasal cannula. Afebrile. Hemodynamically stable. She is continued on Symbicort, Spiriva. She remains on Decadron. Eliquis for anticoagulation. Vitamin supplements. Continued on Cipro for UTI secondary to Klebsiella pneumoniae and Enterobacter cloacae. Continued on IV diuretics. Currently in a -2 L balance. White count 4.6. Hemoglobin 7.9. Platelets 333. Sodium 134. Potassium 5.0. BUN 43. Creati nine 0.98. Glucose 104. Reevaluated today on 06/25/22, patient is doing well, feeling better, breathing easier. Patient is on 2 L nasal cannula, O2 sats is 96%, she is hemodynamically stable, remains on oxygen, remains on bronchodilators including Spiriva and Symbicort, she is also on albuterol, remains on Decadron. She is receiving Cipro for Klebsiella pneumonia urinary tract infection and Enterobacter cloaca in the urine. Overall I believe the patient is gradually improving, and should be considered for discharge planning in the next 24 hours. Labs today showed a relatively normal CBC and the relatively normal basic metabolic profile, normal renal profile. Objective - Vital Signs Vital signs: Vital Signs Temp 98.2 F 06/25/22 08:28 Pulse 78 06/25/22 09:48 Resp 18 06/25/22 09:48 BP 95/50 06/25/22 08:28 Pulse Ox 96 06/25/22 08:28 FiO2 Intake & Output 12/06/25/22 06/25/22 18:59 06:59 18:59 Intake Total 1200 180 Output Total 1999 350 375 Balance -800 -350 -195 Weight 112.5 kg Intake: Oral 1200 180 Output: Urine 1999 350 375 Uretheral (Hylton) 375 Other: Voiding Method Indwelling Catheter Indwelling Catheter Indwelling Catheter # Bowel Movements 1 - Exam Physical Exam: Revealed an 86-year-old female obese in no distress Head: Atraumatic, normocephalic. HEENT:[Neck is supple.] [No neck masses.] [No thyromegaly.] [No JVD.] Chest: Minimal fine crackles at the left base, no rhonchi and no wheezes. Cardiac Exam: [Normal S1 and S2, no S3 gallop, no murmur.] Abdomen: [Soft, nontender, no megaly, no rebound, no guarding, normal bowel sounds.] Extremities: [No clubbing, no edema, no cyanosis.] Neurological Exam: [No focal neurologic deficit.] Alert oriented 3. Psychiatric: Normal mood affect and normal mental status examination. Skin: No rashes. - Labs CBC & Chem 7: 06/25/22 06:53 06/25/22 06:53 Labs: Abnormal Lab Results - Last 24 Hours (Table) 06/24/22 06/24/22 06/25/22 Range/Units 16:38 19:40 06:10 RBC (3.80-5.40) m/uL Hgb (11.4-16.0) gm/dL Hct (34.0-46.0) % RDW (11.5-15.5) % Sodium (137-145) mmol/L Carbon Dioxide (22-30) mmol/L BUN (7-17) mg/dL Glucose (74-99) mg/dL POC Glucose (mg/dL) 194 H 273 H 122 H (70-110) mg/dL Calcium (8.4-10.2) mg/dL 06/25/22 06/25/22 06/25/22 Range/Units 06:53 06:53 11:50 RBC 2.93 L (3.80-5.40) m/uL Hgb 8.2 L (11.4-16.0) gm/dL Hct 25.4 L (34.0-46.0) % RDW 16.6 H (11.5-15.5) % Sodium 134 L (137-145) mmol/L Carbon Dioxide 32 H (22-30) mmol/L BUN 39 H (7-17) mg/dL Glucose 123 H (74-99) mg/dL POC Glucose (mg/dL) 228 H (70-110) mg/dL Calcium 7.9 L (8.4-10.2) mg/dL Assessment and Plan Assessment: Generalized weakness with fall suspect secondary to urinary tract infection, COVID-19 infection COVID-19 infection, currently on Decadron, vitamin supplements, Eliquis Acute hypoxic respiratory failure secondary to a right lower lobe infiltrate, currently on 2 L nasal cannula, stable Urinary tract infection secondary to Klebsiella pneumoniae and enterococcus c loacae Valvular heart disease with aortic valve stenosis and a preserved LV function History of atrial fibrillation, anticoagulated with Eliquis Small right-sided pleural effusion with some chronic changes in the right lower lobe Acute on chronic anemia History of COPD, from previous history of tobacco use. History of chronic diastolic CHF. CAD with previous stent placement. History of moderate aortic stenosis. History of CVA/TIA. History of diabetes mellitus. Morbid obesity. Hyperlipidemia. Hypertension. Hypothyroidism. Poor overall functional performance based on the above-mentioned multiple comorbidities Plan: Continue Cipro. Continue Decadron Continue eliquis Continue to titrate FiO2 and possibly discontinue oxygen Continue diuretics Continue COVID-19 cocktail Patient will need to be placed in subacute rehabilitation. We will continue to follow Time with Patient: Less than 30
--- NOTE | 2022-06-25 12:26 | P.PN ---
Subjective 06/21/22:But he's an 86-year-old white, female, well known to be from the practice. She has been in and out of The hospital five times this year for multiple conditions, including COPDUTI since CHF. She's been rehabilitated twice now at [facility] and [facility]митр[facility] is in the rose this year.She came to the emergency room after standing up and feeling very weak and falling. She's been also short of breath for the past 2 to 3 days. Patient recently had COVID-19 and was on pax livid. She's also recently seen in the office for a ICF follow up. This morning she is in bed, complaining some weakness and shortness breath. She denies any chest pains or nausea vomiting. Vital signs are stable with pulse ox symmetry at 90% of 2 L O2. Heart rate respirate blood pressure normal.Potassium has been as high as 7.0 and most recently was 6.1.She has received albuterol for the hyper kalemia. She has received azithromycin and ceftriaxone her antibiotic coverage. She remains on eliquis for a fib, anticoagulation, amiodarone for AFIB. she is not urinating at all and bladder scan showed greater than 600 cc of urine. A Hylton catheter is been brien She feels better this morning after medication. She has seen pulmonology and nephrology. 06/22/2022: Patient is reevaluated for her significant hyperkalemia, acute renal failure most likely due to urinary retention, hypervolemic hyponatremia, and her CHF. She COVID-19 last week. She is sleeping currently but easily arousable. No significant complaints at rest. No chest pains, pressures, shortness of breath. She has a Hylton catheter to gravity. Vital signs remained stable heart rate respirate rate pulse oximetry remains excellent on 2 L O2. Laboratory studies show her hemoglobin is stable at 8.0. Normal white count. Sodium 131, potassium is now 5.5, CO2 27 BUN 50 creatinine 1.22. Her magnesium is 2.4. C-reactive protein 2.7. GFR is calculated at 41. Urine culture shows greater than 100,000 gram-negative bacilli. Urinalysis from 1220 showed cloudy urine. While there are large leukocytes, there are no nitrites but some moderate bacteria noted. Chest x-ray from last indicates glomerular megaly with mild pulmonary vascular congestion. Ultrasound the kidneys show no evidence of obstructive uropathy. 06/23/2022: patient is Her recent fall, laceration to right foot, hyperkalemia, recent, acute renal failure, UTI, urinary retention, diastolic congestive heart failure, COVID-19, CAD and her other medical conditions. She currently denies any chest pains, pressures, shortness of breath. It is only with exertion. She denies any nausea or vomiting, but is not particularly hungry. Her main complaint today is just fatigue and weakness. Vital signs show that she remains afebrile, heart rate, Respiratory rate, blood pressure all in the normal range. Pulse ox in reach 90% on 2 L. Laboratory studies show her hemoglobin is personnel down to 7.2, but no white count. Chemistries are normalizing with sodium and 132, potassium 5.1. Glucose remains controlled You're in culture show Klebsiella, pneumonia, and Enterobacter. Rocephin and azithromycin been discontinued, she's been starting on ciprofloxacin. 06/24/2022: Patient is reevaluated for COVID-19, hyperkalemia, acute renal failure, urinary retention and UTI, diastolic congestive heart failure. She is feeling a little bit better today. Vital signs remained stable today with slightly elevated blood pressure. He remains afebrile. Hemoglobin is 27.9. Diabetes count is 4.6 with no left shift. Chemistries now show sodium 134 p otassium 5.0. BUN is now 43 creatinine 0.98. Glucose remained stable. Patient remains on Cipro for antibiotic coverage. She remains on furosemide for fluid overload. Dressings are in place for her laceration to her right ankle and forehead. 06/25/2022: Patient continues to improve from hyperkalemia, COVID-19, UTI, volume overload. She is resting comfortably. Her is at bedside. Vital signs are stable with a pulse oximetry 96% on 2 L O2 via nasal cannula. Heart rate respiratory rate and blood pressure are normal. Hylton catheter remains in place. Laboratory studies show a hemoglobin 8.2 today. Chemistries are essentially normal BUN 39 crit and 0.9 GFR is now 59. Patient remains on her current medications as reviewed. Consult recommendations were noted. Objective - Vital Signs Vital signs: Vital Signs Temp 98.2 F 06/25/22 08:28 Pulse 78 06/25/22 09:48 Resp 18 06/25/22 09:48 BP 95/50 06/25/22 08:28 Pulse Ox 96 06/25/22 08:28 FiO2 Intake & Output 06/24/22 06/25/22 06/25/22 18:59 06:59 18:59 Intake Total 1200 180 Output Total 2000 350 375 Balance -800 -350 -195 Weight 112.5 kg Intake: Oral 1200 180 Output: Urine 2000 350 375 Uretheral (Hylton) 375 Other: Voiding Method Indwelling Catheter Indwelling Catheter Indwelling Catheter # Bowel Movements 1 - Exam General: Alert and oriented 3, today. Neck: Supple, no JVD Cardiac: Heart regularly irregular No S3. No S4. No clicks, rubs. Systolic murmur. Lungs: Unlabored, coarse with bibasilar rhonchi, stable from 1 day ago Abdomen: Soft, nontender, No mass. No organomegaly. Bowel sounds presnt and normoactive in all 4 quadrants. Extremes:+1l edema bilateral lower extremes no cyanosis no claudication normal pulses Skin: Warm and dry, No rash.Laceration to the right foot is clean drain intact sutures are present. Neurologic: Cranial nerves II-12 grossly intact, no focal deficit - Labs CBC & Chem 7: 06/25/22 06:53 06/25/22 06:53 Labs: Abnormal Lab Results - Last 24 Hours (Table) 06/24/22 06/24/22 06/25/22 Range/Units 16:38 19:40 06:10 RBC (3.80-5.40) m/uL Hgb (11.4-16.0) gm/dL Hct (34.0-46.0) % RDW (11.5-15.5) % Sodium (137-145) mmol/L Carbon Dioxide (22-30) mmol/L BUN (7-17) mg/dL Glucose (74-99) mg/dL POC Glucose (mg/dL) 194 H 273 H 122 H (70-110) mg/dL Calcium (8.4-10.2) mg/dL 06/25/22 06/25/22 06/25/22 Range/Units 06:53 06:53 11:50 RBC 2.93 L (3.80-5.40) m/uL Hgb 8.2 L (11.4-16.0) gm/dL Hct 25.4 L (34.0-46.0) % RDW 16.6 H (11.5-15.5) % Sodium 134 L (137-145) mmol/L Carbon Dioxide 32 H (22-30) mmol/L BUN 39 H (7-17) mg/dL Glucose 123 H (74-99) mg/dL POC Glucose (mg/dL) 228 H (70-110) mg/dL Calcium 7.9 L (8.4-10.2) mg/dL Assessment and Plan (1) COVID-19 Current Visit: Yes Status: Acute Code(s): U07.1 - COVID-19 SNOMED Code(s): 520151074 (2) Fall Current Visit: Yes Status: Acute Code(s): W19.XXXA - UNSPECIFIED FALL, INITIAL ENCOUNTER SNOMED Code(s): 4850997 (3) Hyperkalemia Current Visit: Yes Status: Resolved Code(s): E87.5 - HYPERKALEMIA SNOMED Code(s): 67344514 (4) Scalp laceration Current Visit: Yes Status: Acute Code(s): S01.01XA - LACERATION WITHOUT FOREIGN BODY OF SCALP, INITIAL ENCOUNTER SNOMED Code(s): 896094428 (5) Syncope Current Visit: Yes Status: Acute Code(s): R55 - SYNCOPE AND COLLAPSE SNOMED Code(s): 112505935 (6) Urinary retention Current Visit: Yes Status: Acute Code(s): R33.9 - RETENTION OF URINE, UNSPECIFIED SNOMED Code(s): 994853682 (7) Acute on chronic diastolic (congestive) heart failure Current Visit: No Status: Acute Code(s): I50.33 - ACUTE ON CHRONIC DIASTOLIC (CONGESTIVE) HEART FAILURE SNOMED Code(s): 508218926 (8) Acute on chronic renal failure Current Visit: No Status: Acute Code(s): N17.9 - ACUTE KIDNEY FAILURE, UNSPECIFIED; N18.9 - CHRONIC KIDNEY DISEASE, UNSPECIFIED SNOMED Code(s): 053140571 (9) Altered mental status Current Visit: No Status: Acute Code(s): R41.82 - ALTERED MENTAL STATUS, UNSPECIFIED SNOMED Code(s): 081573223 (10) Anemia Current Visit: No Status: Acute Code(s): D64.9 - ANEMIA, UNSPECIFIED SNOMED Code(s): 883444224 (11) CAD (coronary atherosclerotic disease) Current Visit: No Status: Acute Code(s): I25.10 - ATHSCL HEART DISEASE OF [place] CORONARY ARTERY W/O ANG PCTRS SNOMED Code(s): 095787936 (12) Hyponatremia Current Visit: Yes Status: Acute Code(s): E87.1 - HYPO-OSMOLALITY AND HYPONATREMIA SNOMED Code(s): 95522762 (13) CKD (chronic kidney disease) stage 3, GFR 30-59 ml/min Current Visit: Yes Status: Acute Code(s): N18.30 - CHRONIC KIDNEY DISEASE, STAGE 3 UNSPECIFIED SNOMED Code(s): 305415993 (14) Acute renal failure Current Visit: No Status: Acute Code(s): N17.9 - ACUTE KIDNEY FAILURE, UNSPECIFIED SNOMED Code(s): 87906057 (15) Laceration of right ankle Current Visit: Yes Status: Acute Code(s): S91.011A - LACERATION WITHOUT FOREIGN BODY, RIGHT ANKLE, INIT ENCNTR SNOMED Code(s): 64918992474693287 (16) Laceration of right medial ankle Current Visit: Yes Status: Acute Code(s): S91.011A - LACERATION WITHOUT FORE IGN BODY, RIGHT ANKLE, INIT ENCNTR SNOMED Code(s): 06743012704465834 (17) Type 2 diabetes mellitus without complications Current Visit: No Status: Acute Code(s): E11.9 - TYPE 2 DIABETES MELLITUS WITHOUT COMPLICATIONS SNOMED Code(s): 781969551 (18) UTI (urinary tract infection) Current Visit: No Status: Acute Code(s): N39.0 - URINARY TRACT INFECTION, SITE NOT SPECIFIED SNOMED Code(s): 75625116 (19) Urinary tract infection Current Visit: No Status: Acute Code(s): N39.0 - URINARY TRACT INFECTION, SITE NOT SPECIFIED SNOMED Code(s): 77253191 Plan: Continue Hylton catheter to gravity. Trial discontinuation 60 him tomorrow. Continue antibiotic oif Cipro, monitor kidney function closely Continue on furosemide for diuresis of her congestive heart failure. She will continue on hydrocodone for back pain.continue her other medications as reviewed in the medical record this morning.Should continue on Decadron and other medication's for Covid continue Decadron for her Covid. Her sugar closely, and NovoLog scale We'll repeat labs in am. Wait on further recommendations from pulmonology and nephrology, to be reevaluated next 24 hours, plan for ECF in the next 24 hours.
[2022-06-25 16:53] LABS: Glucose,Whole Blood 276 mg/dL (70-110)
[2022-06-25] MEDS: SODIUM CHLORIDE 0.9% 1,000 ML IV SCH (17:28)
[2022-06-25 19:54] LABS: Glucose,Whole Blood 230 mg/dL (70-110)
[2022-06-25] MEDS: AMITRIPTYLINE HCL 50 MG TAB PO SCH (21:29)
[2022-06-25] MEDS: ATORVASTATIN 40 MG TAB PO SCH (21:29)
[2022-06-25] MEDS: HYDROcodone/APAP 5-325MG 1 EACH TAB PO PRN (21:33)
[2022-06-26 05:53] LABS: Glucose,Whole Blood 167 mg/dL (70-110)
[2022-06-26] MEDS: LEVOTHYROXINE 50 MCG TAB PO SCH (06:20)
[2022-06-26] MEDS: INSULIN ASPART (NovoLOG) 100 UNIT/ML VIAL SQ SCH ×4 (06:20→20:27)
[2022-06-26] MEDS: TIOTROPIUM 2.5 MCG INHALER INHALATION SCH (07:30)
[2022-06-26] MEDS: SYMBICORT 80-4.5 MCG INHALER INHALATION SCH ×2 (07:30→20:04)
[2022-06-26 08:53] LABS: Potassium 4.7 mmol/L (3.5-5.1)
[2022-06-26] MEDS: GABAPENTIN 300 MG CAP PO SCH ×3 (09:10→21:33)
[2022-06-26] MEDS: METOPROLOL TARTRATE 25 MG TAB PO SCH ×2 (09:10→20:27)
[2022-06-26] MEDS: AMIODARONE 200 MG TAB PO SCH (09:11)
[2022-06-26] MEDS: FUROSEMIDE 10 MG/ML 4 ML VIAL IV SCH (09:11)
[2022-06-26] MEDS: TAMSULOSIN 0.4 MG CAP.ER.24H PO SCH (09:11)
[2022-06-26] MEDS: APIXABAN 2.5 MG TABLET PO SCH ×2 (09:11→20:27)
[2022-06-26] MEDS: CIPROFLOXACIN HCL 500 MG TAB PO SCH ×2 (09:11→20:27)
[2022-06-26] MEDS: ZINC SULFATE 220 MG CAP PO SCH (09:11)
[2022-06-26] MEDS: CHOLECALCIFEROL 125 MCG (5000 IU) TABLET PO SCH (09:11)
[2022-06-26] MEDS: ASCORBIC ACID 500 MG TAB PO SCH (09:11)
[2022-06-26] MEDS: DEXAMETHASONE SOD PHOSPHATE 10 MG/ML 1 ML VIAL IVP SCH (09:11)
[2022-06-26 12:27] LABS: Glucose,Whole Blood 218 mg/dL (70-110)
--- NOTE | 2022-06-26 12:29 | P.PN ---
Subjective 06/21/22:But he's an 86-year-old white, female, well known to be from the practice. She has been in and out of The hospital five times this year for multiple conditions, including COPDUTI since CHF. She's been rehabilitated twice now at [facility] and [facility] is in the [facility] this year.She came to the emergency room after standing up and feeling very weak and falling. She's been also short of breath for the past 2 to 3 days. Patient recently had COVID-19 and was on pax livid. She's also recently seen in the office for a ICF follow up. This morning she is in bed, complaining some weakness and shortness breath. She denies any chest pains or nausea vomiting. Vital signs are stable with pulse ox symmetry at 90% of 2 L O2. Heart rate respirate blood pressure normal.Potassium has been as high as 7.0 and most recently was 6.1.She has received albuterol for the hyper kalemia. She has received azithromycin and ceftriaxone her antibiotic coverage. She remains on eliquis for a fib, anticoagulation, amiodarone for AFIB. she is not urinating at all and bladder scan showed greater than 600 cc of urine. A Hylton catheter is been brien She feels better this morning after medication. She has seen pulmonology and nephrology. 06/22/2022: Patient is reevaluated for her significant hyperkalemia, acute renal failure most likely due to urinary retention, hypervolemic hyponatremia, and her CHF. She COVID-19 last week. She is sleeping currently but easily arousable. No significant complaints at rest. No chest pains, pressures, shortness of breath. She has a Hylton catheter to gravity. Vital signs remained stable heart rate respirate rate pulse oximetry remains excellent on 2 L O2. Laboratory studies show her hemoglobin is stable at 8.0. Normal white count. Sodium 131, potassium is now 5.5, CO2 27 BUN 50 creatinine 1.22. Her magnesium is 2.4. C-reactive protein 2.7. GFR is calculated at 41. Urine culture shows greater than 100,000 gram-negative bacilli. Urinalysis from 1220 showed cloudy urine. While there are large leukocytes, there are no nitrites but some moderate bacteria noted. Chest x-ray from last indicates glomerular megaly with mild pulmonary vascular congestion. Ultrasound the kidneys show no evidence of obstructive uropathy. 06/23/2022: patient is Her recent fall, laceration to right foot, hyperkalemia, recent, acute renal failure, UTI, urinary retention, diastolic congestive heart failure, COVID-19, CAD and her other medical conditions. She currently denies any chest pains, pressures, shortness of breath. It is only with exertion. She denies any nausea or vomiting, but is not particularly hungry. Her main complaint today is just fatigue and weakness. Vital signs show that she remains afebrile, heart rate, Respiratory rate, blood pressure all in the normal range. Pulse ox in reach 90% on 2 L. Laboratory studies show her hemoglobin is personnel down to 7.2, but no white count. Chemistries are normalizing with sodium and 132, potassium 5.1. Glucose remains controlled You're in culture show Klebsiella, pneumonia, and Enterobacter. Rocephin and azithromycin been discontinued, she's been starting on ciprofloxacin. 06/24/2022: Patient is reevaluated for COVID-19, hyperkalemia, acute renal failure, urinary retention and UTI, diastolic congestive heart failure. She is feeling a little bit better today. Vital signs remained stable today with slightly elevated blood pressure. He remains afebrile. Hemoglobin is 27.9. Diabetes count is 4.6 with no left shift. Chemistries now show sodium 134 p otassium 5.0. BUN is now 43 creatinine 0.98. Glucose remained stable. Patient remains on Cipro for antibiotic coverage. She remains on furosemide for fluid overload. Dressings are in place for her laceration to her right ankle and forehead. 06/25/2022: Patient continues to improve from hyperkalemia, COVID-19, UTI, volume overload. She is resting comfortably. Her is at bedside. Vital signs are stable with a pulse oximetry 96% on 2 L O2 via nasal cannula. Heart rate respiratory rate and blood pressure are normal. Hylton catheter remains in place. Laboratory studies show a hemoglobin 8.2 today. Chemistries are essentially normal BUN 39 crit and 0.9 GFR is now 59. Patient remains on her current medications as reviewed. Consult recommendations were noted. 06/26/2022: Patient is reevaluated today for her COVID-19 volume overload and multiple other medical problems. Her Hylton was discontinued this morning and she's urinated several times. She denies any chest pains pressures or significant shortness breath at rest at this time. No nausea or vomiting. Her rest her rate and blood pressure stable. Pulse oximetry is 94% on 2 L O2. Laboratory studies today to BUN 37 and creatinine 1.07. Pulmonology notes reviewed. Plan ECF for her soon. She is refusing aortic Diana at this time. Objective - Vital Signs Vital signs: Vital Signs Temp 97.9 F 06/26/22 08:00 Pulse 72 06/26/22 08:00 Resp 18 06/26/22 08:00 BP 149/64 06/26/22 08:00 Pulse Ox 94 L 06/26/22 08:00 FiO2 Intake & Output 06/25/22 06/26/22 06/26/22 18:59 06:59 18:59 Intake Total 540 420 180 Output Total 1375 1275 Balance -835 -855 180 Weight 110 kg Intake: Intake, IV Titration 240 Amount Sodium Chloride 0.9% 1, 240 000 ml @ 20 mls/hr IV . Q24H [facility] Rx#:[id number] Oral 540 180 180 Output: Urine 1375 1275 Uretheral (Hylton) 375 100 Other: Voiding Method Indwelling Catheter Indwelling Catheter Bedpan Diaper - Exam General: Alert and oriented 3, today. Neck: Supple, no JVD Cardiac: Heart regularly irregular No S3. No S4. No clicks, rubs. Systolic murmur. Lungs: Unlabored, coarse with bibasilar rhonchi, stable from 1 day ago Abdomen: Soft, nontender, No mass. No organomegaly. Bowel sounds presnt and normoactive in all 4 quadrants. Extremes:+1l edema bilateral lower extremes no cyanosis no claudication normal pulses Skin: Warm and dry, No rash.Laceration to the right foot is clean drain intact sutures are present. Neurologic: Cranial nerves II-12 grossly intact, no focal deficit - Labs CBC & Chem 7: 06/25/22 06:53 06/26/22 08:07 Labs: Abnormal Lab Results - Last 24 Hours (Table) 06/25/22 06/25/22 06/26/22 Range/Units 16:52 19:51 05:52 Sodium (137-145) mmol/L Chloride (98-107) mmol/L Carbon Dioxide (22-30) mmol/L BUN (7-17) mg/dL Creatinine (0.52-1.04) mg/dL Glucose (74-99) mg/dL POC Glucose (mg/dL) 276 H 230 H 167 H (70-110) mg/dL Calcium (8.4-10.2) mg/dL 06/26/22 06/26/22 Range/Units 08:07 12:25 Sodium 135 L (137-145) mmol/L Chloride 95 L (98-107) mmol/L Carbon Dioxide 36 H (22-30) mmol/L BUN 32 H (7-17) mg/dL Creatinine 1.07 H (0.52-1.04) mg/dL Glucose 127 H (74-99) mg/dL POC Glucose (mg/dL) 218 H (70-110) mg/dL Calcium 8.0 L (8.4-10.2) mg/dL Assessment and Plan (1) COVID-19 Current Visit: Yes Status: Acute Code(s): U07.1 - COVID-19 SNOMED Code(s): 099848837 (2) Fall Current Visit: Yes Status: Acute Code(s): W19.XXXA - UNSPECIFIED FALL, INITIAL ENCOUNTER SNOMED Code(s): 6267184 (3) Hyperkalemia Current Visit: Yes Status: Resolved Code(s): E87.5 - HYPERKALEMIA SNOMED Code(s): 76592071 (4) Scalp laceration Current Visit: Yes Status: Acute Code(s): S01.01XA - LACERATION WITHOUT FOREIGN BODY OF SCALP, INITIAL ENCOUNTER SNOMED Code(s): 226196599 (5) Syncope Current Visit: Yes Status: Acute Code(s): R55 - SYNCOPE AND COLLAPSE SNOMED Code(s): 871533547 (6) Urinary retention Current Visit: Yes Status: Acute Code(s): R33.9 - RETENTION OF URINE, UNSPECIFIED SNOMED Code(s): 931285908 (7) Acute on chronic diastolic (congestive) heart failure Current Visit: No Status: Acute Code(s): I50.33 - ACUTE ON CHRONIC DIASTOLIC (CONGESTIVE) HEART FAILURE SNOMED Code(s): 241737372 (8) Acute on chronic renal failure Current Visit: No Status: Acute Code(s): N17.9 - ACUTE KIDNEY FAILURE, UNSPECIFIED; N18.9 - CHRONIC KIDNEY DISEASE, UNSPECIFIED SNOMED Code(s): 390899775 (9) Altered mental status Current Visit: No Status: Acute Code(s): R41.82 - ALTERED MENTAL STATUS, UNSPECIFIED SNOMED Code(s): 187025237 (10) Anemia Current Visit: No Status: Acute Code(s): D64.9 - ANEMIA, UNSPECIFIED SNOMED Code(s): 453606176 (11) CAD (coronary atherosclerotic disease) Current Visit: No Status: Acute Code(s): I25.10 - ATHSCL HEART DISEASE OF [place] CORONARY ARTERY W/O ANG PCTRS SNOMED Code(s): 552116475 (12) Hyponatremia Current Visit: Yes Status: Acute Code(s): E87.1 - HYPO-OSMOLALITY AND HYPONATREMIA SNOMED Code(s): 62145554 (13) CKD (chronic kidney disease) stage 3, GFR 30-59 ml/min Current Visit: Yes Status: Acute Code(s): N18.30 - CHRONIC KIDNEY DISEASE, S TAGE 3 UNSPECIFIED SNOMED Code(s): 739238778 (14) Acute renal failure Current Visit: No Status: Acute Code(s): N17.9 - ACUTE KIDNEY FAILURE, UNSPECIFIED SNOMED Code(s): 34020153 (15) Laceration of right ankle Current Visit: Yes Status: Acute Code(s): S91.011A - LACERATION WITHOUT FOREIGN BODY, RIGHT ANKLE, INIT ENCNTR SNOMED Code(s): 33376361120396359 (16) Laceration of right medial ankle Current Visit: Yes Status: Acute Code(s): S91.011A - LACERATION WITHOUT FOREIGN BODY, RIGHT ANKLE, INIT ENCNTR SNOMED Code(s): 23820962294352928 (17) Type 2 diabetes mellitus without complications Current Visit: No Status: Acute Code(s): E11.9 - TYPE 2 DIABETES MELLITUS WITHOUT COMPLICATIONS SNOMED Code(s): 146665155 (18) UTI (urinary tract infection) Current Visit: No Status: Acute Code(s): N39.0 - URINARY TRACT INFECTION, SITE NOT SPECIFIED SNOMED Code(s): 58854479 (19) Urinary tract infection Current Visit: No Status: Acute Code(s): N39.0 - URINARY TRACT INFECTION, SITE NOT SPECIFIED SNOMED Code(s): 38222870 Plan: He is tolerating the discontinuation of Hylton catheter. Staff will monitor. Discharge planning to find ECF for her. She is mostly [facility] due to her recent COVID-19 infection, but she is refusing this time. We'll repeat her BMP in a.m., and work on placement for her closer possible. Her first choice to be recently. He'll be reevaluated next 24 hours.
--- NOTE | 2022-06-26 12:46 | P.PN ---
Subjective Progress Note Date: 06/26/22 This is a pleasant 86-year-old female patient with a known history of coronary artery disease with previous stent placement, chronic obstructive pulmonary disease, former smoker, CVA/TIA, diabetes mellitus, hypertension, hyperlipidemia, obstructive sleep apnea, aortic stenosis, hypothyroidism, bilateral peripheral neuropathy utilizing walker/wheelchair, morbid obesity,poor functional performance. She was brought into the emergency room yesterday after falling from a standing position after she stood up from the breakfast table. She did sustain a laceration to her right medial ankle. X-ray revealed no acute fracture or dislocation. X-ray of the right hip revealed no acute fracture or dislocation. white count 7.0. He will, and 8.0. Platelets 255.sodium 126. Potassium 6.1. BUN 57. Creatinine 1.55. Glucose 72. Urinalysis cloudy with moderate bacteria. Culture pending. Influenza screen negative. RSV negative. COVID-19 screen positive. The patient is vaccinated. Chest x-ray reveals a right lower lobe infiltrate and small effusion. She was initiated on Symbicort, Spiriva. Antibiotics in the form of ceftriaxone and azithromycin. Lasix 40 mg IV daily. Currently in a negative balance. The patient is seen today 06/22/2022 in follow-up on the elective care unit. She is awake and alert in no acute distress. She is sitting up in a chair at the bedside. She is feeling a bit better today compared to yesterday. No worsening shortness of breath, cough or congestion. She is maintaining good O2 saturations in the upper 90s on 2 L/m per nasal cannula. Afebrile. Hemodynamically stable. Urine culture positive for gram-negative bacilli. White count 4.9. Hemoglobin 8.0. D-dimer 0.49. Sodium 131. Potassium 5.5. Bicarb 27. BUN 50. Creatinine 1.22. LDH 446. C-reactive protein 2.7. Pro- calcitonin 0.11. She is continued on ceftriaxone and azithromycin. Remains on bronchodilators. Remains on IV diuretics. Currently in a -2.6 L balance. Anticoagulated with Eliquis. The patient is seen today 06/23/2022 in follow-up on the elective care unit. She is resting comfortably in bed. Awake and alert in no acute distress. She denies any worsening shortness of breath, cough or congestion. She is maintaining O2 saturations in the 90s on 2 L/m per nasal cannula. She is continued on Symbicort, Spiriva, albuterol. Remains on Decadron and vitamin supplements. Anticoagulated with Eliquis. White count 4.5. Hemoglobin 7.2. Platelet count 294. Sodium 132. Potassium 5.1. BUN 46. Creatinine 1.00. Urine culture is positive for Klebsiella pneumoniae and Enterobacter Cloacae. She is currently on ceftriaxone and azithromycin. The patient is seen today 06/24/2022 in follow-up on the selective care unit. She is currently awake and alert in no acute distress. Resting comfortably in bed. Feeling a bit better today compared to yesterday. Maintaining O2 satur ations in the high 90s to 100% on 2 L/m per nasal cannula. Afebrile. Hemodynamically stable. She is continued on Symbicort, Spiriva. She remains on Decadron. Eliquis for anticoagulation. Vitamin supplements. Continued on Cipro for UTI secondary to Klebsiella pneumoniae and Enterobacter cloacae. Continued on IV diuretics. Currently in a -2 L balance. White count 4.6. Hemoglobin 7.9. Platelets 333. Sodium 134. Potassium 5.0. BUN 43. Creatinine 0.98. Glucose 104. The patient is seen today 06/26/2022 in follow-up on the selective care unit. She is currently sitting up in bed. Awake and alert in no acute distress. Breathing easier today. Feeling back to her baseline. She's been maintained on Symbicort, Decadron, Spiriva, vitamin supplements. She remains on IV diuretics. She is currently in a -1.1 L balance. She is anticoagulated with Eliquis. She is on antibiotics in the form of Cipro. Urine culture was positive for Klebsiella pneumoniae and Enterobacter cloacae. Sodium 135. Potassium 4.7. BUN 32. Creatinine 1.07. Glucose 127. Objective - Vital Signs Vital signs: Vital Signs Temp 97.9 F 06/26/22 08:00 Pulse 72 06/26/22 08:00 Resp 18 06/26/22 08:00 BP 149/64 06/26/22 08:00 Pulse Ox 94 L 06/26/22 08:00 FiO2 Intake & Output 06/25/22 06/26/22 06/26/22 18:59 06:59 18:59 Intake Total 540 420 180 Output Total 1375 1275 Balance -835 -855 180 Weight 110 kg Intake: Intake, IV Titration 240 Amount Sodium Chloride 0.9% 1, 240 000 ml @ 20 mls/hr IV . Q24H [facility] Rx#:[id number] Oral 540 180 180 Output: Urine 1375 1275 Uretheral ([place]) 375 100 Other: Voiding Method Indwelling Catheter Indwelling Catheter Bedpan Diaper - Exam GENERAL EXAM: Alert, morbidly obese 86-year-old female, on 2 L nasal cannula, sitting up in bed, comfortable in no apparent distress. HEAD: Normocephalic. EYES: Normal reaction of pupils, equal size. NOSE: Clear with pink turbinates. THROAT: No erythema or exudates. NECK: No masses, no JVD. CHEST: No chest wall deformity. LUNGS: Equal air entry with crackles in the right lung base. CVS: S1 and S2 normal with no audible murmur, regular rhythm. ABDOMEN: No hepatosplenomegaly, normal bowel sounds, no guarding or rigidity. SPINE: No scoliosis or deformity SKIN: No rashes CENTRAL NERVOUS SYSTEM: No focal deficits, tone is normal in all 4 extremities. EXTREMITIES: There is 1+ peripheral edema. No clubbing, no cyanosis. Peripheral pulses are intact. - Labs CBC & Chem 7: 06/25/22 06:53 06/26/22 08:07 Labs: Abnormal Lab Results - Last 24 Hours (Table) 06/25/22 06/25/22 06/26/22 Range/Units 16:52 19:51 05:52 Sodium (137-145) mmol/L Chloride (98-107) mmol/L Carbon Dioxide (22-30) mmol/L BUN (7-17) mg/dL Creatinine (0.52-1.04) mg/dL Glucose (74-99) mg/dL POC Glucose (mg/dL) 276 H 230 H 167 H (70-110) mg/dL Calcium (8.4-10.2) mg/dL 06/26/22 06/26/22 Range/Units 08:07 12:25 Sodium 135 L (137-145) mmol/L Chloride 95 L (98-107) mmol/L Carbon Dioxide 36 H (22-30) mmol/L BUN 32 H (7-17) mg/dL Creatinine 1.07 H (0.52-1.04) mg/dL Glucose 127 H (74-99) mg/dL POC Glucose (mg/dL) 218 H (70-110) mg/dL Calcium 8.0 L (8.4-10.2) mg/dL Assessment and Plan Assessment: Generalized weakness with fall suspect secondary to urinary tract infection, COVID-19 infection COVID-19 infection, currently on Decadron, vitamin supplements, Eliquis Acute hypoxic respiratory failure secondary to a right lower lobe infiltrate, currently on 2 L nasal cannula, stable Urinary tract infection secondary to Klebsiella pneumoniae and enterococcus cloacae, currently on Cipro Valvular heart disease with aortic valve stenosis and a preserved LV function History of atrial fibrillation, anticoagulated with Eliquis Small right-sided pleural effusion with some chronic changes in the right lower lobe Acute on chronic anemia History of COPD, from previous history of tobacco use. History of chronic diastolic CHF. CAD with previous stent placement. History of moderate aortic stenosis. History of CVA/TIA. History of diabetes mellitus. Morbid obesity. Hyperlipidemia. Hypertension. Hypothyroidism. Poor overall functional performance based on the above-mentioned multiple comorb idities Plan: The patient was seen and evaluated Labs and medications reviewed Stable for transfer to [facility] from the pulmonary standpoint I have personally seen and examined the patient, performed the documentation and the assessment and plan as written. Number of minutes spent on the visit: 10.
[2022-06-26 16:43] LABS: Glucose,Whole Blood 255 mg/dL (70-110)
[2022-06-26] MEDS: SODIUM CHLORIDE 0.9% 1,000 ML IV SCH (17:46)
[2022-06-26 20:15] LABS: Glucose,Whole Blood 205 mg/dL (70-110)
[2022-06-26] MEDS: AMITRIPTYLINE HCL 50 MG TAB PO SCH (20:26)
[2022-06-26] MEDS: ATORVASTATIN 40 MG TAB PO SCH (20:27)
[2022-06-27 06:05] LABS: Glucose,Whole Blood 160 mg/dL (70-110)
[2022-06-27] MEDS: INSULIN ASPART (NovoLOG) 100 UNIT/ML VIAL SQ SCH ×4 (06:39→22:02)
[2022-06-27] MEDS: LEVOTHYROXINE 50 MCG TAB PO SCH (06:39)
[2022-06-27] MEDS: SYMBICORT 80-4.5 MCG INHALER INHALATION SCH ×2 (07:44→20:24)
[2022-06-27] MEDS: TIOTROPIUM 2.5 MCG INHALER INHALATION SCH (07:44)
[2022-06-27 08:44] LABS: Calcium 7.7 mg/dL (8.4-10.2); Potassium 4.1 mmol/L (3.5-5.1)
[2022-06-27] MEDS: CIPROFLOXACIN HCL 500 MG TAB PO SCH ×2 (09:46→22:02)
[2022-06-27] MEDS: CHOLECALCIFEROL 125 MCG (5000 IU) TABLET PO SCH (09:47)
[2022-06-27] MEDS: FUROSEMIDE 10 MG/ML 4 ML VIAL IV SCH ×2 (09:47→16:45)
[2022-06-27] MEDS: AMIODARONE 200 MG TAB PO SCH (09:47)
[2022-06-27] MEDS: METOPROLOL TARTRATE 25 MG TAB PO SCH ×2 (09:47→22:02)
[2022-06-27] MEDS: ZINC SULFATE 220 MG CAP PO SCH (09:47)
[2022-06-27] MEDS: TAMSULOSIN 0.4 MG CAP.ER.24H PO SCH (09:47)
[2022-06-27] MEDS: APIXABAN 2.5 MG TABLET PO SCH ×2 (09:47→22:02)
[2022-06-27] MEDS: ASCORBIC ACID 500 MG TAB PO SCH (09:47)
[2022-06-27] MEDS: GABAPENTIN 300 MG CAP PO SCH ×3 (09:47→22:01)
[2022-06-27] MEDS: DEXAMETHASONE SOD PHOSPHATE 10 MG/ML 1 ML VIAL IVP SCH (09:48)
[2022-06-27 11:43] LABS: Glucose,Whole Blood 219 mg/dL (70-110)
[2022-06-27 11:59] VITALS: BMI 41.8
--- NOTE | 2022-06-27 14:15 | P.PN ---
Subjective Progress Note Date: 06/27/22 This is a pleasant 86-year-old female patient with a known history of coronary artery disease with previous stent placement, chronic obstructive pulmonary disease, former smoker, CVA/TIA, diabetes mellitus, hypertension, hyperlipidemia, obstructive sleep apnea, aortic stenosis, hypothyroidism, bilateral peripheral neuropathy utilizing walker/wheelchair, morbid obesity,poor functional performance. She was brought into the emergency room yesterday after falling from a standing position after she stood up from the breakfast table. She did sustain a laceration to her right medial ankle. X-ray revealed no acute fracture or dislocation. X-ray of the right hip revealed no acute fracture or dislocation. white count 7.0. He will, and 8.0. Platelets 255.sodium 126. Potassium 6.1. BUN 57. Creatinine 1.55. Glucose 72. Urinalysis cloudy with moderate bacteria. Culture pending. Influenza screen negative. RSV negative. COVID-19 screen positive. The patient is vaccinated. Chest x-ray reveals a right lower lobe infiltrate and small effusion. She was initiated on Symbicort, Spiriva. Antibiotics in the form of ceftriaxone and azithromycin. Lasix 40 mg IV daily. Currently in a negative balance. The patient is seen today 06/22/2022 in follow-up on the elective care unit. She is awake and alert in no acute distress. She is sitting up in a chair at the bedside. She is feeling a bit better today compared to yesterday. No worsening shortness of breath, cough or congestion. She is maintaining good O2 saturations in the upper 90s on 2 L/m per nasal cannula. Afebrile. Hemodynamically stable. Urine culture positive for gram-negative bacilli. White count 4.9. Hemoglobin 8.0. D-dimer 0.49. Sodium 131. Potassium 5.5. Bicarb 27. BUN 50. Creatinine 1.22. LDH 446. C-reactive protein 2.7. Pro- calcitonin 0.11. She is continued on ceftriaxone and azithromycin. Remains on bronchodilators. Remains on IV diuretics. Currently in a -2.6 L balance. Anticoagulated with Eliquis. The patient is seen today 06/23/2022 in follow-up on the elective care unit. She is resting comfortably in bed. Awake and alert in no acute distress. She denies any worsening shortness of breath, cough or congestion. She is maintaining O2 saturations in the 90s on 2 L/m per nasal cannula. She is continued on Symbicort, Spiriva, albuterol. Remains on Decadron and vitamin supplements. Anticoagulated with Eliquis. White count 4.5. Hemoglobin 7.2. Platelet count 294. Sodium 132. Potassium 5.1. BUN 46. Creatinine 1.00. Urine culture is positive for Klebsiella pneumoniae and Enterobacter Cloacae. She is currently on ceftriaxone and azithromycin. The patient is seen today 06/24/2022 in follow-up on the selective care unit. She is currently awake and alert in no acute distress. Resting comfortably in bed. Feeling a bit better today compared to yesterday. Maintaining O2 satur ations in the high 90s to 100% on 2 L/m per nasal cannula. Afebrile. Hemodynamically stable. She is continued on Symbicort, Spiriva. She remains on Decadron. Eliquis for anticoagulation. Vitamin supplements. Continued on Cipro for UTI secondary to Klebsiella pneumoniae and Enterobacter cloacae. Continued on IV diuretics. Currently in a -2 L balance. White count 4.6. Hemoglobin 7.9. Platelets 333. Sodium 134. Potassium 5.0. BUN 43. Creatinine 0.98. Glucose 104. The patient is seen today 06/26/2022 in follow-up on the selective care unit. She is currently sitting up in bed. Awake and alert in no acute distress. Breathing easier today. Feeling back to her baseline. She's been maintained on Symbicort, Decadron, Spiriva, vitamin supplements. She remains on IV diuretics. She is currently in a -1.1 L balance. She is anticoagulated with Eliquis. She is on antibiotics in the form of Cipro. Urine culture was positive for Klebsiella pneumoniae and Enterobacter cloacae. Sodium 135. Potassium 4.7. BUN 32. Creatinine 1.07. Glucose 127. The patient is seen today 06/27/2022 follow-up on the selective care unit. She is awake and alert in no acute distress. Sitting up at the bedside. He does with a loose congested cough. No fever or chills. Maintaining good O2 saturations in the 90s on 2 L/m per nasal cannula. Afebrile. Hemodynamically stable. Urine culture was positive for Klebsiella pneumoniae and Enterobacter. Sodium 134. Potassium 4.1. BUN 27. Creatinine 0.84. Glucose 119. She is continued on antibiotics in the form of Cipro. Remains on Symbicort, Spiriva, albuterol. Continued on Decadron. Continued on vitamin supplements. Continued on IV diuretics. Remains in a -1.6 L balance. Anticoagulated with Eliquis Objective - Vital Signs Vital signs: Vital Signs Temp 98.6 F 06/27/22 12:35 Pulse 72 06/27/22 12:35 Resp 16 06/27/22 12:35 BP 144/63 06/27/22 12:35 Pulse Ox 95 06/27/22 12:35 FiO2 Intake & Output 06/26/22 06/27/22 06/27/22 18:59 06:59 18:59 Intake Total 540 540 420 Output Total 800 1100 800 Balance -260 -560 -380 Weight 107 kg 107 kg Intake: Oral 540 540 420 Output: Urine 800 1100 800 Other: Voiding Method Bedpan Diaper Diaper Diaper External Catheter External Catheter # Voids 2 - Exam GENERAL EXAM: Alert, morbidly obese, 86-year-old female, on 2 L nasal cannula, comfortable in no apparent distress. HEAD: Normocephalic. EYES: Normal reaction of pupils, equal size. NOSE: Clear with pink turbinates. THROAT: No erythema or exudates. NECK: No masses, no JVD. CHEST: No chest wall deformity. LUNGS: Equal air entry with crackles in the right lung base. CVS: S1 and S2 normal with no audible murmur, regular rhythm. ABDOMEN: No hepatosplenomegaly, normal bowel sounds, no guarding or rigidity. SPINE: No scoliosis or deformity SKIN: No rashes CENTRAL NERVOUS SYSTEM: No focal deficits, tone is normal in all 4 extremities. EXTREMITIES: There is 1+ peripheral edema. No clubbing, no cyanosis. Peripheral pulses are intact. - Labs CBC & Chem 7: 06/25/22 06:53 06/27/22 07:59 Labs: Abnormal Lab Results - Last 24 Hours (Table) 06/26/22 06/26/22 06/27/22 Range/Units 16:42 20:13 06:04 Sodium (137-145) mmol/L Chloride (98-107) mmol/L Carbon Dioxide (22-30) mmol/L BUN (7-17) mg/dL Glucose (74-99) mg/dL POC Glucose (mg/dL) 255 H 205 H 160 H (70-110) mg/dL Calcium (8.4-10.2) mg/dL 06/27/22 06/27/22 Range/Units 07:59 11:42 Sodium 134 L (137-145) mmol/L Chloride 95 L (98-107) mmol/L Carbon Dioxide 34 H (22-30) mmol/L BUN 27 H (7-17) mg/dL Glucose 119 H (74-99) mg/dL POC Glucose (mg/dL) 219 H (70-110) mg/dL Calcium 7.7 L (8.4-10.2) mg/dL Assessment and Plan Assessment: Generalized weakness with fall suspect secondary to urinary tract infection, COVID-19 infection COVID-19 infection, currently on Decadron, vitamin supplements, Eliquis Acute hypoxic respiratory failure secondary to a right lower lobe infiltrate, currently on 2 L nasal cannula, stable Urinary tract infection secondary to Klebsiella pneumoniae and enterococcus cloacae, currently on Cipro Valvular heart disease with aortic valve stenosis and a preserved LV function History of atrial fibrillation, anticoagulated with Eliquis Small right-sided pleural effusion with some chronic changes in the right lower lobe Acute on chronic anemia History of COPD, from previous history of tobacco use. History of chronic diastolic CHF. CAD with previous stent placement. History of moderate aortic stenosis. History of CVA/TIA. History of diabetes mellitus. Morbid obesity. Hyperlipidemia. Hypertension. Hypothyroidism. Poor overall functional performance based on the above-mentioned multiple comorbidities Plan: The patient was seen and evaluated Labs and medications reviewed Continue the current treatment plan Stable for transfer to [facility] from the pulmonary standpoint I have personally seen and examined the patient, performed the documentation and the assessment and plan as written. Number of minutes spent on the visit: 10.
--- NOTE | 2022-06-27 14:38 | P.PN ---
Subjective Progress Note Date: 06/27/22 Principal diagnosis: Weakness, fall,Covid 19 positive This patient is awake and oriented 3 vital signs are currently stable patient is currently on O2 per nasal cannula 3 L maintaining sats at or around 94-96%, patient is sitting up in the bed eating lunch currently upset because she is going to take covid rehabilitation unit that is in I [facility] Objective - Vital Signs Vital signs: Vital Signs Temp 98.6 F 06/27/22 12:35 Pulse 72 06/27/22 12:35 Resp 16 06/27/22 12:35 BP 144/63 06/27/22 12:35 Pulse Ox 95 06/27/22 12:35 FiO2 Intake & Output 06/26/22 06/27/22 06/27/22 18:59 06:59 18:59 Intake Total 540 540 420 Output Total 800 1100 800 Balance -260 -560 -380 Weight 107 kg 107 kg Intake: Oral 540 540 420 Output: Urine 800 1100 800 Other: Voiding Method Bedpan Diaper Diaper Diaper External Catheter External Catheter # Voids 2 - Exam General: [Patient awake, alert and oriented times 3. Patient in no acute distress.] HEENT: [PERRL. EOMI. No pharyngeal erythema or exudate.] Neck: [No adenopathy.] Cardiac: [Heart regular in rate and rhythm. No S3. No S4. No clicks, rubs. No murmur.] Lungs: [Clear to auscultation bilaterally.] Abdomen: [No mass. No organomegaly. Bowel sounds presnt and normoactive in all 4 quadrants.Morbid obesity Extremes: [No edema no cyanosis no claudication normal pulses] : Normal female genitalia Musculoskeletal: [No joint erythema, edema or tenderness.] Skin: [No rash.] Neurologic: [No lateralizing deficits. CN II - XII grossly intact.] Lymphatic: [No adenopathy.] - Labs CBC & Chem 7: 06/25/22 06:53 06/27/22 07:59 Labs: Abnormal Lab Results - Last 24 Hours (Table) 06/26/22 06/26/22 06/27/22 Range/Units 16:42 20:13 06:04 Sodium (137-145) mmol/L Chloride (98-107) mmol/L Carbon Dioxide (22-30) mmol/L BUN (7-17) mg/dL Glucose (74-99) mg/dL POC Glucose (mg/dL) 255 H 205 H 160 H (70-110) mg/dL Calcium (8.4-10.2) mg/dL 06/27/22 06/27/22 Range/Units 07:59 11:42 Sodium 134 L (137-145) mmol/L Chloride 95 L (98-107) mmol/L Carbon Dioxide 34 H (22-30) mmol/L BUN 27 H (7-17) mg/dL Glucose 119 H (74-99) mg/dL POC Glucose (mg/dL) 219 H (70-110) mg/dL Calcium 7.7 L (8.4-10.2) mg/dL Assessment and Plan (1) CKD (chronic kidney disease) stage 3, GFR 30-59 ml/min Current Visit: Yes Status: Acute Code(s): N18.30 - CHRONIC KIDNEY DISEASE, STAGE 3 UNSPECIFIED SNOMED Code(s): 371105158 (2) COVID-19 Current Visit: Yes Status: Acute Code(s): U07.1 - COVID-19 SNOMED Code(s): 256139687 (3) Concussion Current Visit: Yes Status: Acute Code(s): S06.0XAA - CONCUSSION WITH LOC STATUS UNKNOWN, INITIAL ENCOUNTER SNOMED Code(s): 504364086 (4) Fall Current Visit: Yes Status: Acute Code(s): W19.XXXA - UNSPECIFIED FALL, INITIAL ENCOUNTER SNOMED Code(s): 0604867 (5) Hyponatremia Current Visit: Yes Status: Acute Code(s): E87.1 - HYPO-OSMOLALITY AND HYPONATREMIA SNOMED Code(s): 07812419 (6) Laceration of right ankle Current Visit: Yes Status: Acute Code(s): S91.011A - LACERATION WITHOUT FOREIGN BODY, RIGHT ANKLE, INIT ENCNTR SNOMED Code(s): 74937302963520783 (7) Laceration of right medial ankle Current Visit: Yes Status: Acute Code(s): S91.011A - LACERATION WITHOUT FOREIGN BODY, RIGHT ANKLE, INIT ENCNTR SNOMED Code(s): 36098293071527547 (8) Scalp laceration Current Visit: Yes Status: Acute Code(s): S01.01XA - LACERATION WITHOUT FOREIGN BODY OF SCALP, INITIAL ENCOUNTER SNOMED Code(s): 602962263 (9) Syncope Current Visit: Yes Status: Acute Code(s): R55 - SYNCOPE AND COLLAPSE SNOMED Code(s): 787574677 (10) Urinary retention Current Visit: Yes Status: Acute Code(s): R33.9 - RETENTION OF URINE, UNSPECIFIED SNOMED Code(s): 967984278 (11) Hyperkalemia Current Visit: Yes Status: Resolved Code(s): E87.5 - HYPERKALEMIA SNOMED Code(s): 33326812 (12) Acquired hypothyroidism Current Visit: No Status: Acute Code(s): E03.9 - HYPOTHYROIDISM, UNSPECIFIED SNOMED Code(s): 184403809 (13) Acute exacerbation of chronic obstructive pulmonary disease Current Visit: No Status: Acute Code(s): J44.1 - CHRONIC OBSTRUCTIVE PULMONARY DISEASE W (ACUTE) EXACERBATION SNOMED Code(s): 313631307 (14) Acute on chronic diastolic (congestive) heart failure Current Visit: No Status: Acute Code(s): I50.33 - ACUTE ON CHRONIC DIASTOLIC (CONGESTIVE) HEART FAILURE SNOMED Code(s): 331585090 (15) Acute on chronic renal failure Current Visit: No Status: Acute Code(s): N17.9 - ACUTE KIDNEY FAILURE, UNSPECIFIED; N18.9 - CHRONIC KIDNEY DISEASE, UNSPECIFIED SNOMED Code(s): 689370519 Plan: This patient is stable for transfer to a rehabilitation unit Should a bed open up Time with Patient: Greater than 30
--- NOTE | 2022-06-27 14:41 | P.DS ---
Providers Date of admission: 06/20/22 17:09 Expected date of discharge: 06/27/22 Attending physician: Дмитрий Montoya Consults: 06/20/22 17:09 Consult Physician Urgent Consulting Provider: Waylon Hendrix Consult Reason/Comments: urinary retention Do you want consulting provider notified?: Yes Consult Physician Urgent Consulting Provider: Cayetano Cramer Consult Reason/Comments: covid Do you want consulting provider notified?: Yes 06/20/22 17:15 Consult Physician Urgent Consulting Provider: Neelam Underwood Consult Reason/Comments: acute hyperkalemia, ckd Do you want consulting provider notified?: Yes Primary care physician: Phan Hartman - Rikki Diagnosis(es) (1) CKD (chronic kidney disease) stage 3, GFR 30-59 ml/min Current Visit: Yes Status: Acute (2) COVID-19 Current Visit: Yes Status: Acute (3) Concussion Current Visit: Yes Status: Acute (4) Fall Current Visit: Yes Status: Acute (5) Hyponatremia Current Visit: Yes Status: Acute (6) Laceration of right ankle Current Visit: Yes Status: Acute (7) Laceration of right medial ankle Current Visit: Yes Status: Acute (8) Scalp laceration Current Visit: Yes Status: Acute (9) Syncope Current Visit: Yes Status: Acute (10) Urinary retention Current Visit: Yes Status: Acute (11) Hyperkalemia Current Visit: Yes Status: Resolved (12) Acquired hypothyroidism Current Visit: No Status: Acute (13) Acute exacerbation of chronic obstructive pulmonary disease Current Visit: No Status: Acute (14) Acute on chronic diastolic (congestive) heart failure Current Visit: No Status: Acute (15) Acute on chronic renal failure Current Visit: No Status: Acute Hospital Course: See progress note Patient Condition at Discharge: Stable Plan - Discharge Summary Discharge Rx Participant: No New Discharge Prescriptions: No Action Nitroglycerin Sl Tabs [Nitrostat] 0.4 mg SL Q5M PRN PRN Reason: Chest Pain Atorvastatin Calcium [Lipitor] 40 mg PO HS #1 tab Levothyroxine Sodium [Synthroid] 50 mcg PO AC-BRKFST Cyanocobalamin [Vitamin B-12 Injection] 1,000 mcg SQ Q30D Fluticasone/Umeclidin/Vilanter [Trelegy Ellipta 100-62.5-25] 1 puff INHALATION RT-HS Amitriptyline HCl [Elavil] 100 mg PO HS Tamsulosin [Flomax] 0.4 mg PO PC-BRKFST cap Furosemide [Lasix] 40 mg PO DAILY tab Metoprolol Tartrate [Lopressor] 25 mg PO BID tab Amiodarone [Cordarone] 200 mg PO DAILY #90 tab HYDROcodone/APAP 5-325MG [[place] 5-325] 1 tab PO Q6H PRN PRN Reason: Pain Apixaban [Eliquis] 2.5 mg PO BID Gloria Root 550mg 1 tab PO DAILY Cyanocobalamin (Vitamin B-12) [Vitamin B-12] 1,000 mcg PO DAILY Gabapentin 300 mg PO TID #9 cap Calcium Carbonate [Tums] 1,000 mg PO QID PRN tab PRN Reason: Heartburn Insulin Lispro [humaLOG Kwikpen] See Protocol SQ ACHS PRN PRN Reason: Blood Sugar - High Discharge Medication List Nitroglycerin Sl Tabs [Nitrostat] 0.4 mg SL Q5M PRN 07/20/15 [History] Atorvastatin Calcium [Lipitor] 40 mg PO HS #1 tab 08/04/15 [Rx] Cyanocobalamin [Vitamin B-12 Injection] 1,000 mcg SQ Q30D 07/06/19 [History] Levothyroxine Sodium [Synthroid] 50 mcg PO AC-BRKFST 07/06/19 [History] Fluticasone/Umeclidin/Vilanter [Trelegy Ellipta 100-62.5-25] 1 puff INHALATION RT-HS 10/15/21 [History] Apixaban [Eliquis] 2.5 mg PO BID 12/09/21 [History] Amitriptyline HCl [Elavil] 100 mg PO HS 03/13/22 [History] Cyanocobalamin (Vitamin B-12) [Vitamin B-12] 1,000 mcg PO DAILY 03/13/22 [History] Gloria Root 550mg 1 tab PO DAILY 03/13/22 [History] Gabapentin 300 mg PO TID #9 cap 04/04/22 [Rx] Calcium Carbonate [Tums] 1,000 mg PO QID PRN tab 04/13/22 [Rx] Furosemide [Lasix] 40 mg PO DAILY tab 04/13/22 [Rx] Tamsulosin [Flomax] 0.4 mg PO PC-BRKFST cap 04/13/22 [Rx] Amiodarone [Cordarone] 200 mg PO DAILY #90 tab 04/14/22 [Rx] Metoprolol Tartrate [Lopressor] 25 mg PO BID tab 04/14/22 [Rx] HYDROcodone/APAP 5-325MG [[place] 5-325] 1 tab PO Q6H PRN 05/21/22 [History] Insulin Lispro [humaLOG Kwikpen] See Protocol SQ ACHS PRN 05/21/22 [History] Follow up Appointment(s)/Referral(s): Phan Hartman Jr, [Primary Care Provider] - 1-2 days
[2022-06-27] MEDS ORDERED: NITROGLYCERIN SL TABS 0.4 MG TAB SUBLINGUAL PRN (14:42)
[2022-06-27 16:29] LABS: Glucose,Whole Blood 284 mg/dL (70-110)
[2022-06-27 19:54] LABS: Glucose,Whole Blood 260 mg/dL (70-110)
[2022-06-27] MEDS: AMITRIPTYLINE HCL 50 MG TAB PO SCH (22:00)
[2022-06-27] MEDS: HYDROcodone/APAP 5-325MG 1 EACH TAB PO PRN (22:01)
[2022-06-27] MEDS: ATORVASTATIN 40 MG TAB PO SCH (22:01)
[2022-06-28 06:02] LABS: Glucose,Whole Blood 180 mg/dL (70-110)
[2022-06-28] MEDS: LEVOTHYROXINE 50 MCG TAB PO SCH (06:20)
[2022-06-28] MEDS: INSULIN ASPART (NovoLOG) 100 UNIT/ML VIAL SQ SCH ×4 (06:21→21:10)
[2022-06-28] MEDS: SODIUM CHLORIDE 0.9% 1,000 ML IV SCH ×2 (06:57→17:24)
[2022-06-28] MEDS: SYMBICORT 80-4.5 MCG INHALER INHALATION SCH ×2 (07:55→19:40)
[2022-06-28] MEDS: TIOTROPIUM 2.5 MCG INHALER INHALATION SCH (07:55)
[2022-06-28] MEDS ORDERED: CYANOCOBALAMIN 1,000 MCG/ML 1 ML VIAL SQ SCH (09:00)
[2022-06-28] MEDS ORDERED: GINGER ROOT 550 MG PO SCH (09:00)
[2022-06-28] MEDS ORDERED: FUROSEMIDE 40 MG TAB PO SCH (09:00)
[2022-06-28] MEDS: ASCORBIC ACID 500 MG TAB PO SCH (09:50)
[2022-06-28] MEDS: CHOLECALCIFEROL 125 MCG (5000 IU) TABLET PO SCH (09:50)
[2022-06-28] MEDS: CYANOCOBALAMIN 500 MCG TAB PO SCH (09:50)
[2022-06-28] MEDS: METOPROLOL TARTRATE 25 MG TAB PO SCH ×2 (09:50→21:09)
[2022-06-28] MEDS: CIPROFLOXACIN HCL 500 MG TAB PO SCH ×2 (09:50→21:00)
[2022-06-28] MEDS: AMIODARONE 200 MG TAB PO SCH (09:50)
[2022-06-28] MEDS: FUROSEMIDE 10 MG/ML 4 ML VIAL IV SCH (09:50)
[2022-06-28] MEDS: APIXABAN 2.5 MG TABLET PO SCH ×2 (09:50→21:09)
[2022-06-28] MEDS: DEXAMETHASONE SOD PHOSPHATE 10 MG/ML 1 ML VIAL IVP SCH (09:50)
[2022-06-28] MEDS: ZINC SULFATE 220 MG CAP PO SCH (09:50)
[2022-06-28] MEDS: TAMSULOSIN 0.4 MG CAP.ER.24H PO SCH (09:50)
[2022-06-28] MEDS: GABAPENTIN 300 MG CAP PO SCH ×3 (09:50→21:09)
[2022-06-28 11:32] LABS: Glucose,Whole Blood 146 mg/dL (70-110)
--- NOTE | 2022-06-28 14:36 | P.PN ---
Subjective Progress Note Date: 06/28/22 This is a pleasant 86-year-old female patient with a known history of coronary artery disease with previous stent placement, chronic obstructive pulmonary disease, former smoker, CVA/TIA, diabetes mellitus, hypertension, hyperlipidemia, obstructive sleep apnea, aortic stenosis, hypothyroidism, bilateral peripheral neuropathy utilizing walker/wheelchair, morbid obesity,poor functional performance. She was brought into the emergency room yesterday after falling from a standing position after she stood up from the breakfast table. She did sustain a laceration to her right medial ankle. X-ray revealed no acute fracture or dislocation. X-ray of the right hip revealed no acute fracture or dislocation. white count 7.0. He will, and 8.0. Platelets 255.sodium 126. Potassium 6.1. BUN 57. Creatinine 1.55. Glucose 72. Urinalysis cloudy with moderate bacteria. Culture pending. Influenza screen negative. RSV negative. COVID-19 screen positive. The patient is vaccinated. Chest x-ray reveals a right lower lobe infiltrate and small effusion. She was initiated on Symbicort, Spiriva. Antibiotics in the form of ceftriaxone and azithromycin. Lasix 40 mg IV daily. Currently in a negative balance. The patient is seen today 06/22/2022 in follow-up on the elective care unit. She is awake and alert in no acute distress. She is sitting up in a chair at the bedside. She is feeling a bit better today compared to yesterday. No worsening shortness of breath, cough or congestion. She is maintaining good O2 saturations in the upper 90s on 2 L/m per nasal cannula. Afebrile. Hemodynamically stable. Urine culture positive for gram-negative bacilli. White count 4.9. Hemoglobin 8.0. D-dimer 0.49. Sodium 131. Potassium 5.5. Bicarb 27. BUN 50. Creatinine 1.22. LDH 446. C-reactive protein 2.7. Pro- calcitonin 0.11. She is continued on ceftriaxone and azithromycin. Remains on bronchodilators. Remains on IV diuretics. Currently in a -2.6 L balance. Anticoagulated with Eliquis. The patient is seen today 06/23/2022 in follow-up on the elective care unit. She is resting comfortably in bed. Awake and alert in no acute distress. She denies any worsening shortness of breath, cough or congestion. She is maintaining O2 saturations in the 90s on 2 L/m per nasal cannula. She is continued on Symbicort, Spiriva, albuterol. Remains on Decadron and vitamin supplements. Anticoagulated with Eliquis. White count 4.5. Hemoglobin 7.2. Platelet count 294. Sodium 132. Potassium 5.1. BUN 46. Creatinine 1.00. Urine culture is positive for Klebsiella pneumoniae and Enterobacter Cloacae. She is currently on ceftriaxone and azithromycin. The patient is seen today 06/24/2022 in follow-up on the selective care unit. She is currently awake and alert in no acute distress. Resting comfortably in bed. Feeling a bit better today compared to yesterday. Maintaining O2 satur ations in the high 90s to 100% on 2 L/m per nasal cannula. Afebrile. Hemodynamically stable. She is continued on Symbicort, Spiriva. She remains on Decadron. Eliquis for anticoagulation. Vitamin supplements. Continued on Cipro for UTI secondary to Klebsiella pneumoniae and Enterobacter cloacae. Continued on IV diuretics. Currently in a -2 L balance. White count 4.6. Hemoglobin 7.9. Platelets 333. Sodium 134. Potassium 5.0. BUN 43. Creatinine 0.98. Glucose 104. The patient is seen today 06/26/2022 in follow-up on the selective care unit. She is currently sitting up in bed. Awake and alert in no acute distress. Breathing easier today. Feeling back to her baseline. She's been maintained on Symbicort, Decadron, Spiriva, vitamin supplements. She remains on IV diuretics. She is currently in a -1.1 L balance. She is anticoagulated with Eliquis. She is on antibiotics in the form of Cipro. Urine culture was positive for Klebsiella pneumoniae and Enterobacter cloacae. Sodium 135. Potassium 4.7. BUN 32. Creatinine 1.07. Glucose 127. The patient is seen today 06/27/2022 follow-up on the selective care unit. She is awake and alert in no acute distress. Sitting up at the bedside. He does with a loose congested cough. No fever or chills. Maintaining good O2 saturations in the 90s on 2 L/m per nasal cannula. Afebrile. Hemodynamically stable. Urine culture was positive for Klebsiella pneumoniae and Enterobacter. Sodium 134. Potassium 4.1. BUN 27. Creatinine 0.84. Glucose 119. She is continued on antibiotics in the form of Cipro. Remains on Symbicort, Spiriva, albuterol. Continued on Decadron. Continued on vitamin supplements. Continued on IV diuretics. Remains in a -1.6 L balance. Anticoagulated with Eliquis. The patient is seen today 06/28/2022 in follow-up on the selective care unit. She is currently resting quite comfortably in bed. Awake and alert in no acute distress. Maintaining good O2 saturations in the high 90s up to 100% on 2 L/m per nasal cannula. Afebrile. Hemodynamically stable. Urine culture from 06/20/2022-positive for Klebsiella pneumoniae and Enterobacter. Blood glucose 146. She is continued on Symbicort and Spiriva. Remains on Decadron. Antibiotics in the form of Cipro. Vitamin supplements. Anticoagulant with Eliquis. Objective - Vital Signs Vital signs: Vital Signs Temp 98.0 F 06/28/22 12:00 Pulse 65 06/28/22 12:00 Resp 20 06/28/22 12:00 BP 168/70 06/28/22 12:00 Pulse Ox 97 06/28/22 12:00 FiO2 Intake & Output 06/27/22 06/28/22 06/28/22 18:59 06:59 18:59 Intake Total 780 716 Output Total 1300 1800 900 Balance -520 -1800 -184 Weight 107 kg 107.5 kg Intake: Oral 780 716 Output: Urine 1300 1800 900 Other: Voiding Method Diaper Diaper Diaper External Catheter External Catheter External Catheter - Exam GENERAL EXAM: Alert, morbidly obese, pleasant 86-year-old female, on 2 L nasal cannula, comfortable in no apparent distress. HEAD: Normocephalic. EYES: Normal reaction of pupils, equal size. NOSE: Clear with pink turbinates. THROAT: No erythema or exudates. NECK: No masses, no JVD. CHEST: No chest wall deformity. LUNGS: Equal air entry with crackles in the right lung base. CVS: S1 and S2 normal with no audible murmur, regular rhythm. ABDOMEN: No hepatosplenomegaly, normal bowel sounds, no guarding or rigidity. SPINE: No scoliosis or deformity SKIN: No rashes CENTRAL NERVOUS SYSTEM: No focal deficits, tone is normal in all 4 extremities. EXTREMITIES: There is 1+ peripheral edema. No clubbing, no cyanosis. Peripheral pulses are intact. - Labs CBC & Chem 7: 06/25/22 06:53 06/27/22 07:59 Labs: Abnormal Lab Results - Last 24 Hours (Table) 06/27/22 06/27/22 06/28/22 Range/Units 16:28 19:53 06:00 POC Glucose (mg/dL) 284 H 260 H 180 H (70-110) mg/dL 06/28/22 Range/Units 11:30 POC Glucose (mg/dL) 146 H (70-110) mg/dL Assessment and Plan Assessment: Generalized weakness with fall suspect secondary to urinary tract infection, COVID-19 infection COVID-19 infection, currently on Decadron, vitamin supplements, Eliquis Acute hypoxic respiratory failure secondary to a right lower lobe infiltrate, currently on 2 L nasal cannula, stable Urinary tract infection secondary to Klebsiella pneumoniae and enterococcus cloacae, currently on Cipro Valvular heart disease with aortic valve stenosis and a preserved LV function History of atrial fibrillation, anticoagulated with Eliquis Small right-sided pleural effusion with some chronic changes in the right lower lobe Acute on chronic anemia History of COPD, from previous history of tobacco use. History of chronic diastolic CHF. CAD with previous stent placement. History of moderate aortic stenosis. History of CVA/TIA. History of diabetes mellitus. Morbid obesity. Hyperlipidemia. Hypertension. Hypothyroidism. Poor overall functional performance based on the above-mentioned multiple comorbidities Plan: The patient was seen and evaluated Labs and medications reviewed Continue the current treatment plan Stable for transfer to ECF once a bed is available I have personally seen and examined the patient, performed the documentation and the assessment and plan as written. Number of minutes spent on the visit: 10.
[2022-06-28 16:41] LABS: Glucose,Whole Blood 342 mg/dL (70-110)
--- NOTE | 2022-06-28 17:16 | P.PN ---
Subjective Progress Note Date: 06/28/22 Principal diagnosis: Weakness, fall,Covid 19 positive This patient is awake and oriented 3 vital signs are currently stable patient is currently on O2 per nasal cannula 3 L maintaining sats at or around 94-96%, rehab transfer not accepted at [facility], discharge stopped patient currently doing better relatively stable respiratory efforts improved Objective - Vital Signs Vital signs: Vital Signs Temp 98.0 F 06/28/22 12:00 Pulse 65 06/28/22 12:00 Resp 20 06/28/22 14:00 BP 168/70 06/28/22 12:00 Pulse Ox 97 06/28/22 12:00 FiO2 Intake & Output 06/27/22 06/28/22 06/28/22 18:59 06:59 18:59 Intake Total 780 716 Output Total 1300 1800 2100 Balance -520 1800 -1382 Weight 107 kg 107.5 kg Intake: Oral 780 716 Output: Urine 1300 1800 2100 Other: Voiding Method Diaper Diaper Diaper External Catheter External Catheter External Catheter - Exam General: [Patient awake, alert and oriented times 3. Patient in no acute distress.] HEENT: [PERRL. EOMI. No pharyngeal erythema or exudate.] Neck: [No adenopathy.] Cardiac: [Heart regular in rate and rhythm. No S3. No S4. No clicks, rubs. No murmur.] Lungs: Diminished breath sounds but clear Abdomen: [No mass. No organomegaly. Bowel sounds presnt and normoactive in all 4 quadrants.Morbid obesity Extremes: [No edema no cyanosis no claudication normal pulses] : Normal female genitalia Musculoskeletal: [No joint erythema, edema or tenderness.] Skin: [No rash.] Neurologic: [No lateralizing deficits. CN II - XII grossly intact.] Lymphatic: [No adenopathy.] - Labs CBC & Chem 7: 06/25/22 06:53 06/27/22 07:59 Labs: Abnormal Lab Results - Last 24 Hours (Table) 06/27/22 06/28/22 06/28/22 Range/Units 19:53 06:00 11:30 POC Glucose (mg/dL) 260 H 180 H 146 H (70-110) mg/dL 06/28/22 Range/Units 16:39 POC Glucose (mg/dL) 342 H (70-110) mg/dL Assessment and Plan (1) CKD (chronic kidney disease) stage 3, GFR 30-59 ml/min Current Visit: Yes Status: Acute Code(s): N18.30 - CHRONIC KIDNEY DISEASE, STAGE 3 UNSPECIFIED SNOMED Code(s): 730542145 (2) COVID-19 Current Visit: Yes Status: Acute Code(s): U07.1 - COVID-19 SNOMED Code(s): 692839217 (3) Concussion Current Visit: Yes Status: Acute Code(s): S06.0XAA - CONCUSSION WITH LOC STATUS UNKNOWN, INITIAL ENCOUNTER SNOMED Code(s): 641733458 (4) Fall Current Visit: Yes Status: Acute Code(s): W19.XXXA - UNSPECIFIED FALL, INITIAL ENCOUNTER SNOMED Code(s): 5733673 (5) Hyponatremia Current Visit: Yes Status: Acute Code(s): E87.1 - HYPO-OSMOLALITY AND HYPONATREMIA SNOMED Code(s): 83724677 (6) Laceration of right ankle Current Visit: Yes Status: Acute Code(s): S91.011A - LACERATION WITHOUT FOREIGN BODY, RIGHT ANKLE, INIT ENCNTR SNOMED Code(s): 63729582166010286 (7) Laceration of right medial ankle Current Visit: Yes Status: Acute Code(s): S91.011A - LACERATION WITHOUT FOREIGN BODY, RIGHT ANKLE, INIT ENCNTR SNOMED Code(s): 33065192282691094 (8) Scalp laceration Current Visit: Yes Status: Acute Code(s): S01.01XA - LACERATION WITHOUT FOREIGN BODY OF SCALP, INITIAL ENCOUNTER SNOMED Code(s): 573524786 (9) Syncope Current Visit: Yes Status: Acute Code(s): R55 - SYNCOPE AND COLLAPSE SNOMED Code(s): 003869785 (10) Urinary retention Current Visit: Yes Status: Acute Code(s): R33.9 - RETENTION OF URINE, UNSPECIFIED SNOMED Code(s): 682104625 (11) Hyperkalemia Current Visit: Yes Status: Resolved Code(s): E87.5 - HYPERKALEMIA SNOMED Code(s): 60688977 (12) Acquired hypothyroidism Current Visit: No Status: Acute Code(s): E03.9 - HYPOTHYROIDISM, UNSPECIFIED SNOMED Code(s): 406791612 (13) Acute exacerbation of chronic obstructive pulmonary disease Current Visit: No Status: Acute Code(s): J44.1 - CHRONIC OBSTRUCTIVE PULMONARY DISEASE W (ACUTE) EXACERBATION SNOMED Code(s): 922819227 (14) Acute on chronic diastolic (congestive) heart failure Current Visit: No Status: Acute Code(s): I50.33 - ACUTE ON CHRONIC DIASTOLIC (CONGESTIVE) HEART FAILURE SNOMED Code(s): 197869507 (15) Acute on chronic renal failure Current Visit: No Status: Acute Code(s): N17.9 - ACUTE KIDNEY FAILURE, UNSPECIFIED; N18.9 - CHRONIC KIDNEY DISEASE, UNSPECIFIED SNOMED Code(s): 328336667 Plan: This patient is stable for transfer to a rehabilitation unit Should a bed open up Original transfer fell through Seeking alternative rehab facilities Patient currently stable don't feel confident sending patient home Time with Patient: Greater than 30
[2022-06-28 19:52] LABS: Glucose,Whole Blood 288 mg/dL (70-110)
[2022-06-28] MEDS: ATORVASTATIN 40 MG TAB PO SCH (20:59)
[2022-06-28] MEDS: AMITRIPTYLINE HCL 50 MG TAB PO SCH (21:00)
[2022-06-28] MEDS: HYDROcodone/APAP 5-325MG 1 EACH TAB PO PRN (21:09)
[2022-06-29 06:20] LABS: Glucose,Whole Blood 159 mg/dL (70-110)
[2022-06-29] MEDS: LEVOTHYROXINE 50 MCG TAB PO SCH (06:36)
[2022-06-29] MEDS: INSULIN ASPART (NovoLOG) 100 UNIT/ML VIAL SQ SCH ×4 (06:36→22:18)
[2022-06-29] MEDS: SYMBICORT 80-4.5 MCG INHALER INHALATION SCH ×2 (08:19→20:19)
[2022-06-29] MEDS: TIOTROPIUM 2.5 MCG INHALER INHALATION SCH (08:19)
[2022-06-29] MEDS: HYDROcodone/APAP 5-325MG 1 EACH TAB PO PRN (08:53)
[2022-06-29] MEDS: APIXABAN 2.5 MG TABLET PO SCH ×2 (08:54→22:17)
[2022-06-29] MEDS: AMIODARONE 200 MG TAB PO SCH (08:54)
[2022-06-29] MEDS: CIPROFLOXACIN HCL 500 MG TAB PO SCH ×2 (08:54→22:18)
[2022-06-29] MEDS: ZINC SULFATE 220 MG CAP PO SCH (08:54)
[2022-06-29] MEDS: GABAPENTIN 300 MG CAP PO SCH ×3 (08:54→22:20)
[2022-06-29] MEDS: ASCORBIC ACID 500 MG TAB PO SCH (08:54)
[2022-06-29] MEDS: CYANOCOBALAMIN 500 MCG TAB PO SCH (08:54)
[2022-06-29] MEDS: CHOLECALCIFEROL 125 MCG (5000 IU) TABLET PO SCH (08:54)
[2022-06-29] MEDS: TAMSULOSIN 0.4 MG CAP.ER.24H PO SCH (08:54)
[2022-06-29] MEDS: METOPROLOL TARTRATE 25 MG TAB PO SCH ×2 (08:54→22:20)
[2022-06-29] MEDS: DEXAMETHASONE SOD PHOSPHATE 10 MG/ML 1 ML VIAL IVP SCH (09:12)
[2022-06-29] MEDS: FUROSEMIDE 10 MG/ML 4 ML VIAL IV SCH (09:12)
[2022-06-29] MEDS: SODIUM CHLORIDE 0.9% 1,000 ML IV SCH (09:15)
[2022-06-29 11:17] LABS: Glucose,Whole Blood 240 mg/dL (70-110)
--- NOTE | 2022-06-29 12:33 | CDI ---
Documentation Clarification Form Date: 06/29/2022 12:18:40 PM From: Swetha Rodriguez CCS, CCDS Admit Date: 06/20/2022 05:09:00 PM Patient Name: Concepcion Newberry Visit Number: [id number] Discharge Date: ATTENTION: The Clinical Documentation Specialists (CDI) and [facility] Coding Staff appreciate your assistance in clarifying documentation. Please respond to the clarification below the line at the bottom and electronically sign. The CDI & [facility] Coding staff will review the response and follow-up if needed. Please note: Queries are made part of the Legal Health Record. If you have any questions, please contact the author of this message via ITS. Dr. Phan Hartman: Anemia without further specificity is documented in the patient's past medical history in the 06/20 ED Note and in subsequent consults and also in the 06/21 History & Physical History & Assessment. Acute on Chronic Anemia is documented in the 06/21 Pulmonary Consult and in subsequent Pulmonary Progress Notes without further specificity. Additional specificity regarding the Type & Acuity of Anemia is requested. 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 Former smoker. Clinical indicators: Presented to the ED on 06/20 via EMS from home, fell standing up from the breakfast table, suffered a laceration to her right medial ankle and scalp, felt weak, cough & some SOB for a few days. Admit with Syncope, Fall, Scalp Laceration, Ankle Laceration, Hyperkalemia, Concussion, UTI & COVID 19 positive. Hemoglobin 06/20: 10.3. 06/21: 8.0. 06/22: 8.0. 06/23: 7.2. 06/24: 7.9. 06/25: 8.2. Hematocrit 06/20: 32.9. 06/21: 26.8. 06/22: 26.9. 06/23: 22.8. 06/24: 25.3. 06/25: 25.4. Treatment 06/20: Hypoglycemia protocol, BPs, Heart Healthy Diet, O2, PT/OT consults, IV Na Chl bolus 1,000 mls @ 999 mls/hr q1H, IV Azithromycin 250 mls @ 250 mls/hr x1, IV Rocephin 1,000 mg x1, IV Dextrose 50 ml x1, IV Humulin 10 units x1, INH Ventolin 2 puffs x1, INH Symbicort 2 puff BID, INH Spiriva 2 puffs Daily, po Eliquis 2.5 mg BID (home dose) Home meds: Insulin sq, [place], Trelegy INH, Vit B12 inj, Lipitor, Elavil, Flomax, Nitro sl, Lopressor, Synthroid, Gabapentin, Lasix, Vit B12, Eliquis, Cordarone Please clarify the Type & Acuity of Anemia if known: [ ] Chronic blood loss anemia [ ] Hemolytic anemia [ ] Drug induced anemia [ ] Nutritional anemia [ ] Anemia of chronic kidney disease [ X ] Anemia of other chronic disease, please specify if known: [ ] Other, please specify: [ ] Unable to determine (Template Last Revised: August 2020) MTDD
--- NOTE | 2022-06-29 15:57 | P.PN ---
Subjective Progress Note Date: 06/29/22 Principal diagnosis: Fall, Chronic COPD This is a pleasant 86-year-old female patient with a known history of coronary artery disease with previous stent placement, chronic obstructive pulmonary disease, former smoker, CVA/TIA, diabetes mellitus, hypertension, hyperlipidemia, obstructive sleep apnea, aortic stenosis, hypothyroidism, bilateral peripheral neuropathy utilizing walker/wheelchair, morbid obesity,poor functional performance. She was brought into the emergency room yesterday after falling from a standing position after she stood up from the breakfast table. She did sustain a laceration to her right medial ankle. X-ray revealed no acute fracture or dislocation. X-ray of the right hip revealed no acute fracture or dislocation. white count 7.0. He will, and 8.0. Platelets 255.sodium 126. Potassium 6.1. BUN 57. Creatinine 1.55. Glucose 72. Urinalysis cloudy with moderate bacteria. Culture pending. Influenza screen negative. RSV negative. COVID-19 screen positive. The patient is vaccinated. Chest x-ray reveals a right lower lobe infiltrate and small effusion. She was initiated on Symbicort, Spiriva. Antibiotics in the form of ceftriaxone and azithromycin. Lasix 40 mg IV daily. Currently in a negative balance. The patient is seen today 06/22/2022 in follow-up on the elective care unit. She is awake and alert in no acute distress. She is sitting up in a chair at the bedside. She is feeling a bit better today compared to yesterday. No worsening shortness of breath, cough or congestion. She is maintaining good O2 saturations in the upper 90s on 2 L/m per nasal cannula. Afebrile. Hemodynamically stable. Urine culture positive for gram-negative bacilli. White count 4.9. Hemoglobin 8.0. D-dimer 0.49. Sodium 131. Potassium 5.5. Bicarb 27. BUN 50. Creatinine 1.22. LDH 446. C-reactive protein 2.7. Pro- calcitonin 0.11. She is continued on ceftriaxone and azithromycin. Remains on bronchodilators. Remains on IV diuretics. Currently in a -2.6 L balance. Anticoagulated with Eliquis. The patient is seen today 06/23/2022 in follow-up on the elective care unit. She is resting comfortably in bed. Awake and alert in no acute distress. She denies any worsening shortness of breath, cough or congestion. She is maint aining O2 saturations in the 90s on 2 L/m per nasal cannula. She is continued on Symbicort, Spiriva, albuterol. Remains on Decadron and vitamin supplements. Anticoagulated with Eliquis. White count 4.5. Hemoglobin 7.2. Platelet count 294. Sodium 132. Potassium 5.1. BUN 46. Creatinine 1.00. Urine culture is positive for Klebsiella pneumoniae and Enterobacter Cloacae. She is currently on ceftriaxone and azithromycin. The patient is seen today 06/24/2022 in follow-up on the selective care unit. She is currently awake and alert in no acute distress. Resting comfortably in bed. Feeling a bit better today compared to yesterday. Maintaining O2 saturations in the high 90s to 100% on 2 L/m per nasal cannula. Afebrile. Hemodynamically stable. She is continued on Symbicort, Spiriva. She remains on Decadron. Eliquis for anticoagulation. Vitamin supplements. Continued on Cipro for UTI secondary to Klebsiella pneumoniae and Enterobacter cloacae. Continued on IV diuretics. Currently in a -2 L balance. White count 4.6. Hemoglobin 7.9. Platelets 333. Sodium 134. Potassium 5.0. BUN 43. Creatinine 0.98. Glucose 104. The patient is seen today 06/26/2022 in follow-up on the selective care unit. She is currently sitting up in bed. Awake and alert in no acute distress. Breathing easier today. Feeling back to her baseline. She's been maintained on Symbicort, Decadron, Spiriva, vitamin supplements. She remains on IV diuretics. She is currently in a -1.1 L balance. She is anticoagulated with Eliquis. She is on antibiotics in the form of Cipro. Urine culture was positive for Klebsiella pneumoniae and Enterobacter cloacae. Sodium 135. Potassium 4.7. BUN 32. Creatinine 1.07. Glucose 127. The patient is seen today 06/27/2022 follow-up on the selective care unit. She is awake and alert in no acute distress. Sitting up at the bedside. He does with a loose congested cough. No fever or chills. Maintaining good O2 saturations in the 90s on 2 L/m per nasal cannula. Afebrile. Hemodynamically stable. Urine culture was positive for Klebsiella pneumoniae and Enterobacter. Sodium 134. Potassium 4.1. BUN 27. Creatinine 0.84. Glucose 119. She is continued on antibiotics in the form of Cipro. Remains on Symbicort, Spiriva, albuterol. Continued on Decadron. Continued on vitamin supplements. Continued on IV diuretics. Remains in a -1.6 L balance. Anticoagulated with Eliquis. The patient is seen today 06/28/2022 in follow-up on the selective care unit. She is currently resting quite comfortably in bed. Awake and alert in no acute distress. Maintaining good O2 saturations in the high 90s up to 100% on 2 L/m per nasal cannula. Afebrile. Hemodynamically stable. Urine culture from 06/20/2022-positive for Klebsiella pneumoniae and Enterobacter. Blood glucose 146. She is continued on Symbicort and Spiriva. Remains on Decadron. Antibiotics in the form of Cipro. Vitamin supplements. Anticoagulant with Eliquis. Patient is being reevaluated today on 06/29/2022 on a general medical floor. Patient is comfortable, sitting up in bed, and in no acute distress. She is on 2 L nasal cannula. Denies any shortness of breath, cough, fever, chest pain. Vital signs are stable and she remains afebrile. She continues to receive ciprofloxacin a positive UTI, isolated organisms Klebsiella and Enterobacter on 06/20/2022. No new chest x-ray. No new labs to review. Pulmonary status is stable. energy and sustainability manager is attempting to find placement for this patient. [facility] denied patient due to no beds being available. Referral to local ECF is pending. Objective - Vital Signs Vital signs: Vital Signs Temp 97.6 F 06/29/22 14:00 Pulse 76 06/29/22 14:00 Resp 18 06/29/22 14:00 BP 129/74 06/29/22 14:00 Pulse Ox 98 06/29/22 14:00 FiO2 Intake & Output 06/28/22 06/29/22 06/29/22 18:59 06:59 18:59 Intake Total 834 Output Total 2700 400 1188 Balance -1866 -400 -1188 Intake: Oral 834 Output: Urine 2700 400 650 Uretheral ([place]) 650 Post Void Residual 538 Other: Voiding Method Diaper Diaper External Catheter External Catheter External Catheter - Exam GENERAL EXAM: Alert, morbidly obese, pleasant 86-year-old female, on 2 L nasal cannula, comfortable in no apparent distress. HEAD: Normocephalic. Forehead laceration dressed with Band-Aid EYES: Normal reaction of pupils, equal size. NOSE: Clear with pink turbinates. THROAT: No erythema or exudates. NECK: No masses, no JVD. CHEST: No chest wall deformity. LUNGS: Equal air entry few scattered rhonchi throughout. Without wheezes or crackles. CVS: S1 and S2 normal with no audible murmur, regular rhythm. ABDOMEN: No hepatosplenomegaly, normal bowel sounds, no guarding or rigidity. SPINE: No scoliosis or deformity SKIN: No rashes CENTRAL NERVOUS SYSTEM: No focal deficits, tone is normal in all 4 extremities. EXTREMITIES: There is 1+ peripheral edema. No clubbing, no cyanosis. Peripheral pulses are intact. - Labs CBC & Chem 7: 06/25/22 06:53 06/27/22 07:59 Labs: Abnormal Lab Results - Last 24 Hours (Table) 06/28/22 06/28/22 06/29/22 Range/Units 16:39 19:51 06:19 POC Glucose (mg/dL) 342 H 288 H 159 H (70-110) mg/dL 06/29/22 Range/Units 11:15 POC Glucose (mg/dL) 240 H (70-110) mg/dL Assessment and Plan Assessment: Generalized weakness with fall suspect secondary to urinary tract infection, COVID-19 infection COVID-19 infection, currently on Decadron, vitamin supplements, Eliquis Acute hypoxic respiratory failure secondary to a right lower lobe infiltrate, currently on 2 L nasal cannula, stable Urinary tract infection secondary to Klebsiella pneumoniae and enterococcus cloacae, currently on Cipro Valvular heart disease with aortic valve stenosis and a preserved LV function History of atrial fibrillation, anticoagulated with Eliquis Small right-sided pleural effusion with some chronic changes in the right lower lobe Acute on chronic anemia History of COPD, from previous history of tobacco use. History of chronic diastolic CHF. CAD with previous stent placement. History of moderate aortic stenosis. History of CVA/TIA. History of diabetes mellitus. Morbid obesity. Hyperlipidemia. Hypertension. Hypothyroidism. Poor overall functional performance based on the above-mentioned multiple comorbidities Plan: The patient was seen and evaluated Labs and medications reviewed Continue the current treatment plan cleared for discharge from pulmonary standpoint to ECF I have personally seen and examined the patient, performed the documentation and the assessment and plan as written. Number of minutes spent on the visit: 10. Time with Patient: Less than 30
[2022-06-29 16:53] LABS: Glucose,Whole Blood 344 mg/dL (70-110)
[2022-06-29 20:02] LABS: Glucose,Whole Blood 262 mg/dL (70-110)
[2022-06-29] MEDS: ATORVASTATIN 40 MG TAB PO SCH (22:17)
[2022-06-29] MEDS: AMITRIPTYLINE HCL 50 MG TAB PO SCH (22:17)
[2022-06-30 06:16] LABS: Glucose,Whole Blood 163 mg/dL (70-110)
[2022-06-30] MEDS: INSULIN ASPART (NovoLOG) 100 UNIT/ML VIAL SQ SCH ×4 (06:36→22:17)
[2022-06-30 07:38] LABS: Glucose,Whole Blood 142 mg/dL (70-110)
[2022-06-30] MEDS: LEVOTHYROXINE 50 MCG TAB PO SCH (09:23)
[2022-06-30] MEDS: CYANOCOBALAMIN 500 MCG TAB PO SCH (09:23)
[2022-06-30] MEDS: DEXAMETHASONE SOD PHOSPHATE 10 MG/ML 1 ML VIAL IVP SCH (09:23)
[2022-06-30] MEDS: GABAPENTIN 300 MG CAP PO SCH ×3 (09:23→22:17)
[2022-06-30] MEDS: FUROSEMIDE 10 MG/ML 4 ML VIAL IV SCH (09:23)
[2022-06-30] MEDS: ZINC SULFATE 220 MG CAP PO SCH (09:23)
[2022-06-30] MEDS: METOPROLOL TARTRATE 25 MG TAB PO SCH ×2 (09:23→22:17)
[2022-06-30] MEDS: ASCORBIC ACID 500 MG TAB PO SCH (09:24)
[2022-06-30] MEDS: TAMSULOSIN 0.4 MG CAP.ER.24H PO SCH (09:24)
[2022-06-30] MEDS: CHOLECALCIFEROL 125 MCG (5000 IU) TABLET PO SCH (09:24)
[2022-06-30] MEDS: APIXABAN 2.5 MG TABLET PO SCH ×2 (09:24→22:17)
[2022-06-30] MEDS: AMIODARONE 200 MG TAB PO SCH (09:24)
[2022-06-30] MEDS: CIPROFLOXACIN HCL 500 MG TAB PO SCH ×2 (09:25→22:17)
[2022-06-30] MEDS: SYMBICORT 80-4.5 MCG INHALER INHALATION SCH ×2 (09:29→21:22)
[2022-06-30] MEDS: TIOTROPIUM 2.5 MCG INHALER INHALATION SCH (09:30)
[2022-06-30 11:34] LABS: Glucose,Whole Blood 209 mg/dL (70-110)
[2022-06-30] MEDS: SODIUM CHLORIDE 0.9% 1,000 ML IV SCH (13:18)
--- NOTE | 2022-06-30 13:29 | P.PN ---
Progress Note - Text Progress Note Date: 06/30/22 Gibson removed yesterday patient was unable to void with PVR 538 mL, gibson was reinserted. She denies any hematuria or dysuria. A/P 86 yo with hx of urinary retention gibson initially placed on 06/21 for retention was seen by Dr carr at that time. gibson removed yesterday, patient unable to void -Keep gibson in place for 2 weeks, can have TOV as an outpatient
--- NOTE | 2022-06-30 15:01 | P.PN ---
Subjective Progress Note Date: 06/30/22 This is a pleasant 86-year-old female patient with a known history of coronary artery disease with previous stent placement, chronic obstructive pulmonary disease, former smoker, CVA/TIA, diabetes mellitus, hypertension, hyperlipidemia, obstructive sleep apnea, aortic stenosis, hypothyroidism, bilateral peripheral neuropathy utilizing walker/wheelchair, morbid obesity,poor functional performance. She was brought into the emergency room yesterday after falling from a standing position after she stood up from the breakfast table. She did sustain a laceration to her right medial ankle. X-ray revealed no acute fracture or dislocation. X-ray of the right hip revealed no acute fracture or dislocation. white count 7.0. He will, and 8.0. Platelets 255.sodium 126. Potassium 6.1. BUN 57. Creatinine 1.55. Glucose 72. Urinalysis cloudy with moderate bacteria. Culture pending. Influenza screen negative. RSV negative. COVID-19 screen positive. The patient is vaccinated. Chest x-ray reveals a right lower lobe infiltrate and small effusion. She was initiated on Symbicort, Spiriva. Antibiotics in the form of ceftriaxone and azithromycin. Lasix 40 mg IV daily. Currently in a negative balance. The patient is seen today 06/22/2022 in follow-up on the elective care unit. She is awake and alert in no acute distress. She is sitting up in a chair at the bedside. She is feeling a bit better today compared to yesterday. No worsening shortness of breath, cough or congestion. She is maintaining good O2 saturations in the upper 90s on 2 L/m per nasal cannula. Afebrile. Hemodynamically stable. Urine culture positive for gram-negative bacilli. White count 4.9. Hemoglobin 8.0. D-dimer 0.49. Sodium 131. Potassium 5.5. Bicarb 27. BUN 50. Creatinine 1.22. LDH 446. C-reactive protein 2.7. Pro- calcitonin 0.11. She is continued on ceftriaxone and azithromycin. Remains on bronchodilators. Remains on IV diuretics. Currently in a -2.6 L balance. Anticoagulated with Eliquis. The patient is seen today 06/23/2022 in follow-up on the elective care unit. She is resting comfortably in bed. Awake and alert in no acute distress. She denies any worsening shortness of breath, cough or congestion. She is maintaining O2 saturations in the 90s on 2 L/m per nasal cannula. She is continued on Symbicort, Spiriva, albuterol. Remains on Decadron and vitamin supplements. Anticoagulated with Eliquis. White count 4.5. Hemoglobin 7.2. Platelet count 294. Sodium 132. Potassium 5.1. BUN 46. Creatinine 1.00. Urine culture is positive for Klebsiella pneumoniae and Enterobacter Cloacae. She is currently on ceftriaxone and azithromycin. The patient is seen today 06/24/2022 in follow-up on the selective care unit. She is currently awake and alert in no acute distress. Resting comfortably in bed. Feeling a bit better today compared to yesterday. Maintaining O2 satur ations in the high 90s to 100% on 2 L/m per nasal cannula. Afebrile. Hemodynamically stable. She is continued on Symbicort, Spiriva. She remains on Decadron. Eliquis for anticoagulation. Vitamin supplements. Continued on Cipro for UTI secondary to Klebsiella pneumoniae and Enterobacter cloacae. Continued on IV diuretics. Currently in a -2 L balance. White count 4.6. Hemoglobin 7.9. Platelets 333. Sodium 134. Potassium 5.0. BUN 43. Creatinine 0.98. Glucose 104. The patient is seen today 06/26/2022 in follow-up on the selective care unit. She is currently sitting up in bed. Awake and alert in no acute distress. Breathing easier today. Feeling back to her baseline. She's been maintained on Symbicort, Decadron, Spiriva, vitamin supplements. She remains on IV diuretics. She is currently in a -1.1 L balance. She is anticoagulated with Eliquis. She is on antibiotics in the form of Cipro. Urine culture was positive for Klebsiella pneumoniae and Enterobacter cloacae. Sodium 135. Potassium 4.7. BUN 32. Creatinine 1.07. Glucose 127. The patient is seen today 06/27/2022 follow-up on the selective care unit. She is awake and alert in no acute distress. Sitting up at the bedside. He does with a loose congested cough. No fever or chills. Maintaining good O2 saturations in the 90s on 2 L/m per nasal cannula. Afebrile. Hemodynamically stable. Urine culture was positive for Klebsiella pneumoniae and Enterobacter. Sodium 134. Potassium 4.1. BUN 27. Creatinine 0.84. Glucose 119. She is continued on antibiotics in the form of Cipro. Remains on Symbicort, Spiriva, albuterol. Continued on Decadron. Continued on vitamin supplements. Continued on IV diuretics. Remains in a -1.6 L balance. Anticoagulated with Eliquis. The patient is seen today 06/28/2022 in follow-up on the selective care unit. She is currently resting quite comfortably in bed. Awake and alert in no acute distress. Maintaining good O2 saturations in the high 90s up to 100% on 2 L/m per nasal cannula. Afebrile. Hemodynamically stable. Urine culture from 06/20/2022-positive for Klebsiella pneumoniae and Enterobacter. Blood glucose 146. She is continued on Symbicort and Spiriva. Remains on Decadron. Antibiotics in the form of Cipro. Vitamin supplements. Anticoagulant with Eliquis. Patient is being reevaluated today on 06/29/2022 on a general medical floor. Patient is comfortable, sitting up in bed, and in no acute distress. She is on 2 L nasal cannula. Denies any shortness of breath, cough, fever, chest pain. Vital signs are stable and she remains afebrile. She continues to receive ciprofloxacin a positive UTI, isolated organisms Klebsiella and Enterobacter on 06/20/2022. No new chest x-ray. No new labs to review. Pulmonary status is stable. manager agricultural is attempting to find placement for this patient. [facility] denied patient due to no beds being available. Referral to local F is pending. The patient is seen today 06/30/2022 in follow-up on the selective care unit. She is currently sitting up in a chair at the bedside. Awake and alert in no acute distress. Doing much better. She is maintaining O2 saturations in the 90s on 2 L/m per nasal cannula. No IV fluids. The plan is for possible transfer to [facility] tomorrow. Initial urine culture positive for Klebsiella pneumoniae and Enterobacter. She is completing her course of antibiotics. Blood sugar 142. She is continued on Symbicort, Spiriva, albuterol. Continued on Decadron. Continued on IV diuretics. Remains in a -3 L balance. Objective - Vital Signs Vital signs: Vital Signs Temp 98.5 F 06/30/22 14:21 Pulse 75 06/30/22 14:21 Resp 22 06/30/22 14:21 BP 115/64 06/30/22 14:21 Pulse Ox 96 06/30/22 14:21 FiO2 Intake & Output 06/29/22 06/30/22 06/30/22 18:59 06:59 18:59 Intake Total 180 Output Total 2263 2200 1000 Balance -2263 -2200 -820 Intake: Oral 180 Output: Urine 1725 2200 1000 Straight 650 Post Void Residual 538 Other: Voiding Method External Catheter External Catheter Indwelling Catheter - Exam GENERAL EXAM: Alert, morbidly obese, 86-year-old female, up in a chair at the bedside. On 2 L nasal cannula, comfortable in no apparent distress. HEAD: Normocephalic. EYES: Normal reaction of pupils, equal size. NOSE: Clear with pink turbinates. THROAT: No erythema or exudates. NECK: No masses, no JVD. CHEST: No chest wall deformity. LUNGS: Equal air entry with crackles in the right lung base. CVS: S1 and S2 normal with no audible murmur, regular rhythm. ABDOMEN: No hepatosplenomegaly, normal bowel sounds, no guarding or rigidity. SPINE: No scoliosis or deformity SKIN: No rashes CENTRAL NERVOUS SYSTEM: No focal deficits, tone is normal in all 4 extremities. EXTREMITIES: There is 1+ peripheral edema. No clubbing, no cyanosis. Peripheral pulses are intact. - Labs CBC & Chem 7: 06/25/22 06:53 06/27/22 07:59 Labs: Abnormal Lab Results - Last 24 Hours (Table) 06/29/22 06/29/22 06/30/22 Range/Units 16:52 20:00 06:15 POC Glucose (mg/dL) 344 H 262 H 163 H (70-110) mg/dL 06/30/22 06/30/22 Range/Units 07:37 11:33 POC Glucose (mg/dL) 142 H 209 H (70-110) mg/dL Assessment and Plan Assessment: Generalized weakness with fall suspect secondary to urinary tract infection, COVID-19 infection COVID-19 infection, currently on Decadron, vitamin supplements, Eliquis Acute hypoxic respiratory failure secondary to a right lower lobe infiltrate, currently on 2 L nasal cannula, stable Urinary tract infection secondary to Klebsiella pneumoniae and enterococcus cloacae, currently on Cipro Valvular heart disease with aortic valve stenosis and a preserved LV function History of atrial fibrillation, anticoagulated with Eliquis Small right-sided pleural effusion with some chronic changes in the right lower lobe Acute on chronic anemia History of COPD, from previous history of tobacco use. History of chronic diastolic CHF. CAD with previous stent placement. History of moderate aortic stenosis. History of CVA/TIA. History of diabetes mellitus. Morbid obesity. Hyperlipidemia. Hypertension. Hypothyroidism. Poor overall functional performance based on the above-mentioned multiple comorbidities Plan: The patient was seen and evaluated Labs and medications reviewed Currently sitting up in a chair at the bedside Stable for transfer to the F on the pulmonary standpoint We will see as needed I have personally seen and examined the patient, performed the documentation and the assessment and plan as written. Number of minutes spent on the visit: 10.
[2022-06-30 17:00] LABS: Glucose,Whole Blood 343 mg/dL (70-110)
[2022-06-30 19:58] LABS: Glucose,Whole Blood 265 mg/dL (70-110)
[2022-06-30] MEDS: ATORVASTATIN 40 MG TAB PO SCH (22:17)
[2022-06-30] MEDS: AMITRIPTYLINE HCL 50 MG TAB PO SCH (22:17)
[2022-06-30] MEDS: HYDROcodone/APAP 5-325MG 1 EACH TAB PO PRN (22:21)
[2022-07-01 06:18] LABS: Glucose,Whole Blood 189 mg/dL (70-110)
[2022-07-01] MEDS: INSULIN ASPART (NovoLOG) 100 UNIT/ML VIAL SQ SCH (07:01)
[2022-07-01] MEDS: LEVOTHYROXINE 50 MCG TAB PO SCH (07:01)
[2022-07-01] MEDS: ASCORBIC ACID 500 MG TAB PO SCH (07:56)
[2022-07-01] MEDS: CYANOCOBALAMIN 500 MCG TAB PO SCH (07:57)
[2022-07-01] MEDS: CHOLECALCIFEROL 125 MCG (5000 IU) TABLET PO SCH (07:57)
[2022-07-01] MEDS: CIPROFLOXACIN HCL 500 MG TAB PO SCH (07:57)
[2022-07-01] MEDS: TAMSULOSIN 0.4 MG CAP.ER.24H PO SCH (07:57)
[2022-07-01] MEDS: GABAPENTIN 300 MG CAP PO SCH (07:57)
[2022-07-01] MEDS: APIXABAN 2.5 MG TABLET PO SCH (07:57)
[2022-07-01] MEDS: AMIODARONE 200 MG TAB PO SCH (07:57)
[2022-07-01] MEDS: METOPROLOL TARTRATE 25 MG TAB PO SCH (07:57)
[2022-07-01] MEDS: ZINC SULFATE 220 MG CAP PO SCH (07:57)
[2022-07-01 07:58] VITALS: BP 146/69; PULSE 59; RESP 16; TEMP 98
[2022-07-01] MEDS: TIOTROPIUM 2.5 MCG INHALER INHALATION SCH (08:15)
[2022-07-01] MEDS: SYMBICORT 80-4.5 MCG INHALER INHALATION SCH (08:15)
[2022-07-01] MEDS: FUROSEMIDE 10 MG/ML 4 ML VIAL IV SCH (08:26)
[2022-07-01] MEDS: DEXAMETHASONE SOD PHOSPHATE 10 MG/ML 1 ML VIAL IVP SCH (08:27)
--- NOTE | 2022-07-01 08:42 | P.DS ---
Providers Date of admission: 06/20/22 17:09 Expected date of discharge: 07/01/22 Attending physician: Дмитрий Montoya Consults: 06/20/22 17:09 Consult Physician Urgent Consulting Provider: Waylon Hendrix Consult Reason/Comments: urinary retention Do you want consulting provider notified?: Yes Consult Physician Urgent Consulting Provider: Cayetano Cramer Consult Reason/Comments: covid Do you want consulting provider notified?: Yes 06/20/22 17:15 Consult Physician Urgent Consulting Provider: Neelam Underwood Consult Reason/Comments: acute hyperkalemia, ckd Do you want consulting provider notified?: Yes 06/29/22 11:38 Consult Physician Routine Consulting Provider: Waylon Hendrix Consult Reason/Comments: continued urinary retention Do you want consulting provider notified?: Yes Primary care physician: Phan Hartman - Rikki Diagnosis(es) (1) CKD (chronic kidney disease) stage 3, GFR 30-59 ml/min Current Visit: Yes Status: Acute (2) COVID-19 Current Visit: Yes Status: Acute (3) Concussion Current Visit: Yes Status: Acute (4) Fall Current Visit: Yes Status: Acute (5) Hyponatremia Current Visit: Yes Status: Acute (6) Laceration of right ankle Current Visit: Yes Status: Acute (7) Laceration of right medial ankle Current Visit: Yes Status: Acute (8) Scalp laceration Current Visit: Yes Status: Acute (9) Syncope Current Visit: Yes Status: Acute (10) Urinary retention Current Visit: Yes Status: Acute (11) Hyperkalemia Current Visit: Yes Status: Resolved (12) Acquired hypothyroidism Current Visit: No Status: Acute (13) Acute exacerbation of chronic obstructive pulmonary disease Current Visit: No Status: Acute (14) Acute on chronic diastolic (congestive) heart failure Current Visit: No Status: Acute (15) Acute on chronic renal failure Current Visit: No Status: Acute Patient Condition at Discharge: Stable Plan - Discharge Summary Discharge Rx Participant: No New Discharge Prescriptions: No Action Nitroglycerin Sl Tabs [Nitrostat] 0.4 mg SL Q5M PRN PRN Reason: Chest Pain Atorvastatin Calcium [Lipitor] 40 mg PO HS #1 tab Levothyroxine Sodium [Synthroid] 50 mcg PO AC-BRKFST Cyanocobalamin [Vitamin B-12 Injection] 1,000 mcg SQ Q30D Fluticasone/Umeclidin/Vilanter [Trelegy Ellipta 100-62.5-25] 1 puff INHALATION RT-HS Amitriptyline HCl [Elavil] 100 mg PO HS Tamsulosin [Flomax] 0.4 mg PO PC-BRKFST cap Furosemide [Lasix] 40 mg PO DAILY tab Metoprolol Tartrate [Lopressor] 25 mg PO BID tab Amiodarone [Cordarone] 200 mg PO DAILY #90 tab HYDROcodone/APAP 5-325MG [[place] 5-325] 1 tab PO Q6H PRN PRN Reason: Pain Apixaban [Eliquis] 2.5 mg PO BID Gloria Root 550mg 1 tab PO DAILY Cyanocobalamin (Vitamin B-12) [Vitamin B-12] 1,000 mcg PO DAILY Gabapentin 300 mg PO TID #9 cap Calcium Carbonate [Tums] 1,000 mg PO QID PRN tab PRN Reason: Heartburn Insulin Lispro [humaLOG Kwikpen] See Protocol SQ ACHS PRN PRN Reason: Blood Sugar - High Discharge Medication List Nitroglycerin Sl Tabs [Nitrostat] 0.4 mg SL Q5M PRN 07/20/15 [History] Atorvastatin Calcium [Lipitor] 40 mg PO HS #1 tab 08/04/15 [Rx] Cyanocobalamin [Vitamin B-12 Injection] 1,000 mcg SQ Q30D 07/06/19 [History] Levothyroxine Sodium [Synthroid] 50 mcg PO AC-BRKFST 07/06/19 [History] Fluticasone/Umeclidin/Vilanter [Trelegy Ellipta 100-62.5-25] 1 puff INHALATION RT-HS 10/15/21 [History] Apixaban [Eliquis] 2.5 mg PO BID 12/09/21 [History] Amitriptyline HCl [Elavil] 100 mg PO HS 03/13/22 [History] Cyanocobalamin (Vitamin B-12) [Vitamin B-12] 1,000 mcg PO DAILY 03/13/22 [History] Gloria Root 550mg 1 tab PO DAILY 03/13/22 [History] Gabapentin 300 mg PO TID #9 cap 04/04/22 [Rx] Calcium Carbonate [Tums] 1,000 mg PO QID PRN tab 04/13/22 [Rx] Furosemide [Lasix] 40 mg PO DAILY tab 04/13/22 [Rx] Tamsulosin [Flomax] 0.4 mg PO PC-BRKFST cap 04/13/22 [Rx] Amiodarone [Cordarone] 200 mg PO DAILY #90 tab 04/14/22 [Rx] Metoprolol Tartrate [Lopressor] 25 mg PO BID tab 04/14/22 [Rx] HYDROcodone/APAP 5-325MG [[place] 5-325] 1 tab PO Q6H PRN 05/21/22 [History] Insulin Lispro [humaLOG Kwikpen] See Protocol SQ ACHS PRN 05/21/22 [History] Follow up Appointment(s)/Referral(s): Phan Hartman Jr, DO [Primary Care Provider] - 1-2 days Waylon Hendrix MD [STAFF PHYSICIAN] - 2 Weeks
== END 2022-07-01 11:26 | DRG 177 ==
LOC: EC 13:28 → 3SCARD 17:09 → 4SSUR 06-28 22:49
PROVIDERS: ADMIT Family Medicine; ATTEND Family Medicine
PROC: 0JQQ3ZZ Repair Right Foot Subcutaneous Tissue and Fascia, Percutaneous Approach (ICD-10-PCS; principal; 2022-06-20)
DX: U07.1 COVID-19 (principal); I50.33 Acute on chronic diastolic (congestive) heart failure; J96.01 Acute respiratory failure with hypoxia; J18.9 Pneumonia, unspecified organism; N39.0 Urinary tract infection, site not specified; S06.0X9A Concussion with loss of consciousness of unspecified duration, initial encounter; Z68.41 Body mass index [BMI] 40.0-44.9, adult; E87.1 Hypo-osmolality and hyponatremia; I13.0 Hypertensive heart and chronic kidney disease with heart failure and stage 1 through stage 4 chronic kidney disease, or unspecified chronic kidney disease; J44.0 Chronic obstructive pulmonary disease with (acute) lower respiratory infection; J44.1 Chronic obstructive pulmonary disease with (acute) exacerbation; N17.9 Acute kidney failure, unspecified; B96.1 Klebsiella pneumoniae [K. pneumoniae] as the cause of diseases classified elsewhere; D63.1 Anemia in chronic kidney disease; B96.89 Other specified bacterial agents as the cause of diseases classified elsewhere; E03.9 Hypothyroidism, unspecified; E11.22 Type 2 diabetes mellitus with diabetic chronic kidney disease; E11.42 Type 2 diabetes mellitus with diabetic polyneuropathy; E66.01 Morbid (severe) obesity due to excess calories; E78.5 Hyperlipidemia, unspecified; E87.5 Hyperkalemia; I25.10 Atherosclerotic heart disease of native coronary artery without angina pectoris; I25.2 Old myocardial infarction; L89.109 Pressure ulcer of unspecified part of back, unspecified stage; I35.0 Nonrheumatic aortic (valve) stenosis; M19.90 Unspecified osteoarthritis, unspecified site; I48.91 Unspecified atrial fibrillation; G47.33 Obstructive sleep apnea (adult) (pediatric); N18.30 Chronic kidney disease, stage 3 unspecified; S91.011A Laceration without foreign body, right ankle, initial encounter; S01.81XA Laceration without foreign body of other part of head, initial encounter; I83.90 Asymptomatic varicose veins of unspecified lower extremity; W19.XXXA Unspecified fall, initial encounter; G89.29 Other chronic pain; Z98.1 Arthrodesis status; Z28.21 Immunization not carried out because of patient refusal; Z71.3 Dietary counseling and surveillance; Z88.0 Allergy status to penicillin; Z96.653 Presence of artificial knee joint, bilateral; Z79.890 Hormone replacement therapy; Z79.4 Long term (current) use of insulin; Z79.899 Other long term (current) drug therapy; Z82.49 Family history of ischemic heart disease and other diseases of the circulatory system; Z86.73 Personal history of transient ischemic attack (TIA), and cerebral infarction without residual deficits; Z79.01 Long term (current) use of anticoagulants; Z82.3 Family history of stroke; Z87.891 Personal history of nicotine dependence; Z95.5 Presence of coronary angioplasty implant and graft; Z87.440 Personal history of urinary (tract) infections; Z87.01 Personal history of pneumonia (recurrent)
CPT/HCPCS: 12002; 36415; 51798; 70450; 71045; 71046; 72125; 72170; 73502; 76770; 80048; 80053; 81001; 82533; 83605; 83615; 83735; 83880; 84132; 84145; 84443; 84484; 85025; 85027; 85379; 85610; 85730; 86140; 87077; 87086; 87186; 87636; 93005; 94640; 94760; 96361; 96365; 96366; 96375; 96376; 99291

== ENCOUNTER 2022-08-08 12:44 | Inpatient (IN) | payer MEDICARE ==
[2022-08-08] MEDS ORDERED: IPRATROPIUM-ALBUTEROL 3 ML NEB INHALATION STA ×2 (12:51→13:11)
[2022-08-08] MEDS ORDERED: FUROSEMIDE 10 MG/ML 4 ML VIAL IV STA (12:52)
[2022-08-08 13:08] LABS: Glucose,Whole Blood 148 mg/dL (70-110)
--- NOTE | 2022-08-08 13:13 | ED ---
SOB HPI - General Chief Complaint: Shortness of Breath Stated Complaint: Syncope Time Seen by Provider: 08/08/22 12:44 Source: family, RN notes reviewed Mode of arrival: EMS Limitations: altered mental status, physical limitation - History of Present Illness Initial Comments: 87-year-old female history of COPD and CHF among other medical illnesses who p resents with by EMS with complaints of shortness of breath which started earlier today. She also had a syncopal episode while she was on a toilet. She did not fall or injure herself. She normally is on 2 L of oxygen at home she was placed on BiPAP by paramedics. She was noted be hypoxemic initially. She was also noted have very diminished breath sounds with evidence of wheezes and crackles in the bases. No reports of fevers chills nausea vomiting sweats patient was somnolent upon arrival which she was able to wake up in answer simple yes no questions without too much difficulty. MD Complaint: shortness of breath - Related Data Home Medications Medication Instructions Recorded Confirmed Nitroglycerin Sl Tabs [Nitrostat] 0.4 mg SL Q5M PRN 07/20/15 08/08/22 Fluticasone/Umeclidin/Vilanter 1 puff INHALATION RT-HS 10/15/21 08/08/22 [Trelegy Ellipta 100-62.5-25] Apixaban [Eliquis] 2.5 mg PO BID 12/09/21 08/08/22 Amitriptyline HCl [Elavil] 100 mg PO HS 03/13/22 08/08/22 Cyanocobalamin (Vitamin B-12) 1,000 mcg PO DAILY 03/13/22 08/08/22 [Vitamin B-12] HYDROcodone/APAP 5-325MG [Elwin 1 tab PO Q6H PRN 05/21/22 08/08/22 5-325] Insulin Lispro [humaLOG Kwikpen] See Protocol SQ ACHS PRN 05/21/22 08/08/22 Calcium Carbonate [Tums] 1,000 mg PO Q6H PRN 08/08/22 08/08/22 Docusate [Colace] 100 mg PO BID 08/08/22 08/08/22 Ipratropium-Albuterol Nebulize 3 ml INHALATION RT-QID 08/08/22 08/08/22 [Duoneb 0.5 mg-3 mg/3 ml Soln] Levothyroxine Sodium [Synthroid] 75 mcg PO DAILY 08/08/22 08/08/22 Psyllium Husk 100% [Metamucil 6 gm PO DAILY 08/08/22 08/08/22 Packet] Tamsulosin [Flomax] 0.4 mg PO DAILY 08/08/22 08/08/22 metFORMIN HCL 1,000 mg PO BID 08/08/22 08/08/22 Previous Rx's Medication Instructions Recorded Atorvastatin Calcium [Lipitor] 40 mg PO HS #1 tab 08/04/15 Gabapentin 300 mg PO TID #9 cap 04/04/22 Furosemide [Lasix] 40 mg PO DAILY tab 04/13/22 Amiodarone [Cordarone] 200 mg PO DAILY #90 tab 04/14/22 Metoprolol Tartrate [Lopressor] 25 mg PO BID tab 04/14/22 Allergies Allergy/AdvReac Type Severity Reaction Status Date / Time Penicillins Allergy Rash/Hives Verified 08/08/22 17:14 Review of Systems ROS Statement: Those systems with pertinent positive or pertinent negative responses have been documented in the HPI. ROS Other: All systems not noted in ROS Statement are negative. Past Medical History Past Medical History: Coronary Artery Disease (CAD), Chest Pain / Angina, Heart Failure, COPD, CVA/TIA, Diabetes Mellitus, Hyperlipidemia, Hypertension, Myocardial Infarction (NC), Osteoarthritis (OA), Renal Disease, Sleep Apnea/CPAP/BIPAP, Thyroid Disorder Additional Past Medical History / Comment(s): Pt recently admitted to [facility] on 05/21/22/ gravely disabled, UTI, acquired hypothyroidism, exacerbation copd and chf, anemia. Other hx: IDDM type II, neuropathy bilateral hands/feet, CKD stage III, urinary retention, UTIs, anemia, home oxygen use ATC, bilateral lower extremity edema, current pressure ulcer decub per pt, gastritis, hiatal hernia, aortic stenosis, hemorrhoids. Last Myocardial Infarction Date:: 06/18/17 History of Any Multi-Drug Resistant Organisms: None Reported, ESBL Date of last positivie culture/infection: 09/06/17 MDRO Source:: ESBL URINE Past Surgical History: Back Surgery, Heart Catheterization, Heart Catheterization With Stent, Joint Replacement, Orthopedic Surgery Additional Past Surgical History / Comment(s): Lumbar laminectomy decompression fusion L3-4 and L5-S1 with cell saver, lumbar instrumentation removal L4-5, L4- L5 laminectomy, BILATERAL KNEE REPLACEMENTS, ORIF RIGHT ANKLE, CERVICAL FUSION, bilateral rotator cuff repair, bilateral wrist carpal tunnel releases, pain procedures, left breast lumpectomy-benign, bilateral varicose vein stripping, bilateral cataracts, heart cath with 5 stents august 2021, egd/colonoscopy 04/13/22 Past Anesthesia/Blood Transfusion Reactions: No Reported Reaction Additional Past Anesthesia/Blood Transfusion Reaction / Comment(s): blood transfusion 04/01/[address] estrella's notes last hospital stay Date of Last Stent Placement:: 08/30/2021 Past Psychological History: No Psychological Hx Reported Smoking Status: Former smoker - Past Family History Father Family Medical History: Myocardial Infarction (NC) Additional Family Medical History / Comment(s): Father at 40 of a NC. Mother Family Medical History: CVA/TIA Additional Family Medical History / Comment(s): Mother had a CVA General Exam - General Exam Comments Initial Comments: This a well-developed obese female was awake but lethargic she is on BiPAP and demonstrating dyspnea with accessory muscle usage. Limitations: altered mental status, physical limitation General appearance: lethargic, in distress Head exam: Present: atraumatic, normocephalic, normal inspection Eye exam: Present: normal appearance, PERRL, EOMI. Absent: scleral icterus, conjunctival injection, periorbital swelling ENT exam: Present: normal exam, mucous membranes moist Neck exam: Present: normal inspection, full ROM. Absent: tenderness, meningismus, lymphadenopathy Respiratory exam: Present: respiratory distress, wheezes, rales, accessory muscle use, decreased breath sounds. Absent: rhonchi, stridor Cardiovascular Exam: Present: regular rate, normal rhythm, normal heart sounds. Absent: systolic murmur, diastolic murmur, rubs, gallop, clicks GI/Abdominal exam: Present: soft, normal bowel sounds. Absent: distended, tenderness, guarding, rebound, rigid Extremities exam: Present: full ROM, normal capillary refill, pedal edema. Absent: tenderness, joint swelling, calf tenderness Back exam: Present: normal inspection Neurological exam: Present: alert, oriented X3, CN II-XII intact Psychiatric exam: Present: normal affect, normal mood Skin exam: Present: warm, dry, intact, normal color. Absent: rash Course Vital Signs 08/08/22 08/08/22 08/08/22 12:47 12:53 12:54 Temperature 96.7 F L Pulse Rate 86 Respiratory 24 Rate Blood Pressure 118/76 O2 Sat by Pulse 87 L Oximetry Fraction of 100 Inspired Oxygen (FIO2) 08/08/22 08/08/22 08/08/22 13:02 13:13 13:30 Temperature Pulse Rate 84 65 Respiratory 20 Rate Blood Pressure 144/97 O2 Sat by Pulse 94 L Oximetry Fraction of 50 Inspired Oxygen (FIO2) 08/08/22 08/08/22 08/08/22 14:30 15:00 15:30 Temperature Pulse Rate 60 63 60 Respiratory 24 24 24 Rate Blood Pressure 87/46 81/50 91/44 O2 Sat by Pulse 96 98 98 Oximetry Fraction of Inspired Oxygen (FIO2) 08/08/22 08/08/22 08/08/22 16:00 16:30 16:36 Temperature Pulse Rate 58 L 59 L Respiratory 20 18 24 Rate Blood Pressure 85/38 101/44 O2 Sat by Pulse 94 L 94 L Oximetry Fraction of Inspired Oxygen (FIO2) 08/08/22 08/08/22 08/08/22 17:30 18:30 19:50 Temperature Pulse Rate 62 76 66 Respiratory 19 27 H 18 Rate Blood Pressure 96/75 71/61 107/57 O2 Sat by Pulse 93 L 90 L 94 L Oximetry Fraction of Inspired Oxygen (FIO2) 08/08/22 08/08/22 08/08/22 20:20 21:20 22:11 Temperature Pulse Rate 73 73 73 Respiratory 18 20 20 Rate Blood Pressure 110/66 105/88 85/65 O2 Sat by Pulse 95 93 L 93 L Oximetry Fraction of Inspired Oxygen (FIO2) 08/08/22 08/09/22 08/09/22 23:03 00:51 01:00 Temperature Pulse Rate 72 74 69 Respiratory 26 H 12 24 Rate Blood Pressure 95/52 95/52 80/56 O2 Sat by Pulse 96 93 L 95 Oximetry Fraction of Inspired Oxygen (FIO2) 08/09/22 08/09/22 08/09/22 02:00 02:14 03:23 Temperature Pulse Rate 74 74 74 Respiratory 22 24 26 H Rate Blood Pressure 96/39 88/44 O2 Sat by Pulse 85 L 93 L 92 L Oximetry Fraction of Inspired Oxygen (FIO2) 08/09/22 08/09/22 08/09/22 04:25 04:32 05:15 Temperature Pulse Rate 73 71 Respiratory 22 Rate Blood Pressure 84/38 91/37 100/59 O2 Sat by Pulse 93 L Oximetry Fraction of Inspired Oxygen (FIO2) 08/09/22 08/09/22 08/09/22 05:57 06:52 07:00 Temperature Pulse Rate 81 72 73 Respiratory 16 16 23 Rate Blood Pressure 99/63 92/39 92/39 O2 Sat by Pulse 92 L 93 L 95 Oximetry Fraction of Inspired Oxygen (FIO2) 08/09/22 08/09/22 08/09/22 07:04 07:57 08:00 Temperature 98.8 F Pulse Rate 74 Respiratory 14 Rate Blood Pressure 80/44 O2 Sat by Pulse 93 L 94 L Oximetry Fraction of Inspired Oxygen (FIO2) 08/09/22 08/09/22 08/09/22 09:00 10:00 11:00 Temperature Pulse Rate 76 73 75 Respiratory 22 23 14 Rate Blood Pressure 85/55 93/44 94/50 O2 Sat by Pulse 96 90 L 94 L Oximetry Fraction of Inspired Oxygen (FIO2) 08/09/22 08/09/22 08/09/22 11:52 12:00 12:12 Temperature Pulse Rate 78 79 78 Respiratory 17 Rate Blood Pressure 81/41 O2 Sat by Pulse 95 Oximetry Fraction of Inspired Oxygen (FIO2) 08/09/22 08/09/22 08/09/22 13:00 14:00 15:00 Temperature Pulse Rate 80 76 79 Respiratory 14 21 29 H Rate Blood Pressure 93/61 73/42 85/36 O2 Sat by Pulse 94 L 95 94 L Oximetry Fraction of Inspired Oxygen (FIO2) 08/09/22 08/09/22 08/09/22 15:19 15:20 15:30 Temperature Pulse Rate 79 82 76 Respiratory 11 L 9 L 6 L Rate Blood Pressure 79/47 79/47 93/39 O2 Sat by Pulse 93 L 94 L 93 L Oximetry Fraction of Inspired Oxygen (FIO2) 08/09/22 08/09/22 08/09/22 15:39 15:40 15:45 Temperature Pulse Rate 86 81 86 Respiratory 15 Rate Blood Pressure 77/52 O2 Sat by Pulse 91 L Oximetry Fraction of Inspired Oxygen (FIO2) 08/09/22 15:50 Temperature Pulse Rate Respiratory Rate Blood Pressure 79/54 O2 Sat by Pulse Oximetry Fraction of Inspired Oxygen (FIO2) - Reevaluation(s) Reevaluation #1: 08/08/22 15:41 Patient noted be demonstrating hypotension she is being fluid bolus he did have a large emesis KUB done shows evidence of a large gastric bubble due to the findings also the elevated d-dimer patient get a CAT scan of his abdomen pelvis. Case is discussed with family also did discuss case Dr. Kinney patient was endor sed to Medical Decision Making - Medical Decision Making Patient arrived demonstrate dyspnea on BiPAP CHF COPD pneumonia suspected patient was given IV antibiotics X-ray showed evidence of right lower lobe infiltrate. Patient is endorsed to Dr. Irving at her shift change pending CT. Did discuss the findings with the patient's family thus far.Was pt. sent in by a medical professional or institution (, PA, FINAL APPLICATION REVIEWER, urgent care, hospital, or retirement...) When possible be specific @ -[No] Did you speak to anyone other than the patient for history (EMS, parent, family, police, friend...)? What history was obtained from this source @ -[EMS] Did you review nursing and triage notes (agree or disagree)? Why? @ -[I reviewed and agree with nursing and triage notes] Were old charts reviewed (outside hosp., previous admission, EMS record, old EKG, old radiological studies, urgent care reports/EKG's, retirement records)? Report findings @ -[ old charts were reviewed] Differential Diagnosis (chest pain, altered mental status, abdominal pain women, abdominal pain men, vaginal bleeding, weakness, fever, dyspnea, syncope, headache, dizziness, GI bleed, back pain, seizure, CVA, palpatations, mental health, musculoskeletal)? @ -[COPD exacerbation, pneumonia, PE, abdominal obstruction] EKG interpreted by me (3pts min.). @ -[As above] X-rays interpreted by me (1pt min.). @ -[As above] CT interpreted by me (1pt min.). @ -[As above] U/S interpreted by me (1pt. min.). @ -[None done] What testing was considered but not performed or refused? (CT, X-rays, U/S, labs)? Why? @ -[None] What meds were considered but not given or refused? Why? @ -[None] Did you discuss the management of the patient with other professionals (professionals i.e. DrIgnacio, PA, FINAL APPLICATION REVIEWER, lab, RT, psych nurse, social media strategist, mail service coordinator, te acher, head correction officer, caser up)? Give summary @ -[Dr. Irving] Was smoking cessation discussed for >3mins.? @ -[No] Was critical care preformed (if so, how long)? @ -[No] Were there social determinants of health that impacted care today? How? (Homelessness, low income, unemployed, alcoholism, drug addiction, transportation, low edu. Level, literacy, decrease access to med. care, correction, rehab)? @ -[No] Was there de-escalation of care discussed even if they declined (Discuss DNR or withdrawal of care, Hospice)? DNR status @ -[No] What co-morbidities impacted this encounter? (DM, HTN, Smoking, COPD, CAD, Cancer, CVA, ARF, Chemo, Hep., AIDS, mental health diagnosis, sleep apnea, morbid obesity)? @ -[None] Was patient admitted / discharged? Hospital course, mention meds given and route, prescriptions, significant lab abnormalities, going to OR and other pertinent info. @ -[hospital course] admitted Undiagnosed new problem with uncertain prognosis? @ -[No] Drug Therapy requiring intensive monitoring for toxicity (Heparin, Nitro, Insulin, Cardizem)? @ -[No] Were any procedures done? @ -[No] Diagnosis/symptom? @ -[default] right lower lobe pneumonia and COPD exacerbation hypocalcemia an emia chronic renal insufficiency Acute, or Chronic, or Acute on Chronic? @ -[default] Uncomplicated (without systemic symptoms) or Complicated (systemic symptoms)? @ -[default] Side effects of treatment? @ -[No] Exacerbation, Progression, or Severe Exacerbation? @ -[No] Poses a threat to life or bodily function? How? (Chest pain, USA, NC, pneumonia, PE, COPD, DKA, ARF, appy, cholecystitis, CVA, Diverticulitis, Homicidal, Suici adryan, threat to staff... and all critical care pts) @ -[Ceftin not treated COPD, pneumonia] patient. endorsed to Dr. Irving the patient was ultimately admitted - Lab Data Result diagrams: 08/13/22 04:32 08/13/22 04:32 Lab Results 08/08/22 08/08/22 08/08/22 Range/Units 13:00 13:00 13:00 WBC 14.3 H (3.8-10.6) k/uL RBC 3.83 (3.80-5.40) m/uL Hgb 10.2 L (11.4-16.0) gm/dL Hct 33.4 L (34.0-46.0) % MCV 87.2 (80.0-100.0) fL MCH 26.8 (25.0-35.0) pg MCHC 30.7 L (31.0-37.0) g/dL RDW 15.8 H (11.5-15.5) % Plt Count 415 (150-450) k/uL MPV 7.9 Neutrophils % 61 % Lymphocytes % 30 % Monocytes % 4 % Eosinophils % 2 % Basophils % 0 % Neutrophils # 8.8 H (1.3-7.7) k/uL Lymphocytes # 4.3 (1.0-4.8) k/uL Monocytes # 0.6 (0-1.0) k/uL Eosinophils # 0.3 (0-0.7) k/uL Basophils # 0.1 (0-0.2) k/uL Hypochromasia Moderate PT 10.6 (9.0-12.0) sec INR 1.0 (<1.2) APTT 23.0 (22.0-30.0) sec D-Dimer 4.73 H (<0.60) mg/L FEU Sodium 138 (137-145) mmol/L Potassium 4.8 (3.5-5.1) mmol/L Chloride 103 (98-107) mmol/L Carbon Dioxide 25 (22-30) mmol/L Anion Gap 10 mmol/L BUN 40 H (7-17) mg/dL Creatinine 1.50 H (0.52-1.04) mg/dL Est GFR (CKD-EPI)AfAm 36 (>60 ml/min/1.73 sqM) Est GFR (CKD-EPI)NonAf 32 (>60 ml/min/1.73 sqM) Glucose 131 H (74-99) mg/dL POC Glucose (mg/dL) (70-110) mg/dL POC Glu Service Center Coordinator ID Lactic Ac Sepsis Rflx Plasma Lactic Acid Russel (0.7-2.0) mmol/L Calcium 8.2 L (8.4-10.2) mg/dL Magnesium 2.7 H (1.6-2.3) mg/dL Total Bilirubin 0.4 (0.2-1.3) mg/dL AST 33 (14-36) U/L ALT 20 (4-34) U/L Alkaline Phosphatase 109 (38-126) U/L Troponin I (0.000-0.034) ng/mL NT-Pro-B Natriuret Pep pg/mL Total Protein 7.2 (6.3-8.2) g/dL Albumin 3.8 (3.5-5.0) g/dL Urine Color Urine Appearance (Clear) Urine pH (5.0-8.0) Ur Specific Lopez (1.001-1.035) Urine Protein (Negative) Urine Glucose (UA) (Negative) Urine Ketones (Negative) Urine Blood (Negative) Urine Nitrite (Negative) Urine Bilirubin (Negative) Urine Urobilinogen (<2.0) mg/dL Ur Leukocyte Esterase (Negative) Urine RBC (0-5) /hpf Urine WBC (0-5) /hpf Urine WBC Clumps (None) /hpf Ur Squamous Epith Cells (0-4) /hpf Urine Bacteria (None) /hpf Hyaline Casts (0-2) /lpf 08/08/22 08/08/22 08/08/22 Range/Units 13:00 13:00 13:00 WBC (3.8-10.6) k/uL RBC (3.80-5.40) m/uL Hgb (11.4-16.0) gm/dL Hct (34.0-46.0) % MCV (80.0-100.0) fL MCH (25.0-35.0) pg MCHC (31.0-37.0) g/dL RDW (11.5-15.5) % Plt Count (150-450) k/uL MPV Neutrophils % % Lymphocytes % % Monocytes % % Eosinophils % % Basophils % % Neutrophils # (1.3-7.7) k/uL Lymphocytes # (1.0-4.8) k/uL Monocytes # (0-1.0) k/uL Eosinophils # (0-0.7) k/uL Basophils # (0-0.2) k/uL Hypochromasia PT (9.0-12.0) sec INR (<1.2) APTT (22.0-30.0) sec D-Dimer (<0.60) mg/L FEU Sodium (137-145) mmol/L Potassium (3.5-5.1) mmol/L Chloride (98-107) mmol/L Carbon Dioxide (22-30) mmol/L Anion Gap mmol/L BUN (7-17) mg/dL Creatinine (0.52-1.04) mg/dL Est GFR (CKD-EPI)AfAm (>60 ml/min/1.73 sqM) Est GFR (CKD-EPI)NonAf (>60 ml/min/1.73 sqM) Glucose (74-99) mg/dL POC Glucose (mg/dL) (70-110) mg/dL POC Glu Service Center Coordinator ID Lactic Ac Sepsis Rflx Plasma Lactic Acid Russel 3.8 H* (0.7-2.0) mmol/L Calcium (8.4-10.2) mg/dL Magnesium (1.6-2.3) mg/dL Total Bilirubin (0.2-1.3) mg/dL AST (14-36) U/L ALT (4-34) U/L Alkaline Phosphatase (38-126) U/L Troponin I <0.012 (0.000-0.034) ng/mL NT-Pro-B Natriuret Pep 426 pg/mL Total Protein (6.3-8.2) g/dL Albumin (3.5-5.0) g/dL Urine Color Urine Appearance (Clear) Urine pH (5.0-8.0) Ur Specific Lopez (1.001-1.035) Urine Protein (Negative) Urine Glucose (UA) (Negative) Urine Ketones (Negative) Urine Blood (Negative) Urine Nitrite (Negative) Urine Bilirubin (Negative) Urine Urobilinogen (<2.0) mg/dL Ur Leukocyte Esterase (Negative) Urine RBC (0-5) /hpf Urine WBC (0-5) /hpf Urine WBC Clumps (None) /hpf Ur Squamous Epith Cells (0-4) /hpf Urine Bacteria (None) /hpf Hyaline Casts (0-2) /lpf 08/08/22 08/08/22 08/08/22 Range/Units 13:02 13:10 13:57 WBC (3.8-10.6) k/uL RBC (3.80-5.40) m/uL Hgb (11.4-16.0) gm/dL Hct (34.0-46.0) % MCV (80.0-100.0) fL MCH (25.0-35.0) pg MCHC (31.0-37.0) g/dL RDW (11.5-15.5) % Plt Count (150-450) k/uL MPV Neutrophils % % Lymphocytes % % Monocytes % % Eosinophils % % Basophils % % Neutrophils # (1.3-7.7) k/uL Lymphocytes # (1.0-4.8) k/uL Monocytes # (0-1.0) k/uL Eosinophils # (0-0.7) k/uL Basophils # (0-0.2) k/uL Hypochromasia PT (9.0-12.0) sec INR (<1.2) APTT (22.0-30.0) sec D-Dimer (<0.60) mg/L FEU Sodium (137-145) mmol/L Potassium (3.5-5.1) mmol/L Chloride (98-107) mmol/L Carbon Dioxide (22-30) mmol/L Anion Gap mmol/L BUN (7-17) mg/dL Creatinine (0.52-1.04) mg/dL Est GFR (CKD-EPI)AfAm (>60 ml/min/1.73 sqM) Est GFR (CKD-EPI)NonAf (>60 ml/min/1.73 sqM) Glucose (74-99) mg/dL POC Glucose (mg/dL) 148 H (70-110) mg/dL POC Glu Service Center Coordinator ID DaquanfrederickAminata palomares Lactic Ac Sepsis Rflx Y Plasma Lactic Acid Russel (0.7-2.0) mmol/L Calcium (8.4-10.2) mg/dL Magnesium (1.6-2.3) mg/dL Total Bilirubin (0.2-1.3) mg/dL AST (14-36) U/L ALT (4-34) U/L Alkaline Phosphatase (38-126) U/L Troponin I (0.000-0.034) ng/mL NT-Pro-B Natriuret Pep pg/mL Total Protein (6.3-8.2) g/dL Albumin (3.5-5.0) g/dL Urine Color Yellow Urine Appearance Cloudy H (Clear) Urine pH 5.5 (5.0-8.0) Ur Specific Lopez 1.015 (1.001-1.035) Urine Protein 1+ H (Negative) Urine Glucose (UA) Negative (Negative) Urine Ketones Negative (Negative) Urine Blood Negative (Negative) Urine Nitrite Negative (Negative) Urine Bilirubin Negative (Negative) Urine Urobilinogen <2.0 (<2.0) mg/dL Ur Leukocyte Esterase Large H (Negative) Urine RBC 2 (0-5) /hpf Urine WBC 165 H (0-5) /hpf Urine WBC Clumps Many H (None) /hpf Ur Squamous Epith Cells <1 (0-4) /hpf Urine Bacteria Rare H (None) /hpf Hyaline Casts 4 H (0-2) /lpf - EKG Data -: EKG Interpreted by Me EKG Comments: EKG interpreted by me sinus rhythm a 65. Interval 182 QRS duration 96 QT since QTC 420/431 low-voltage possible evidence of right ventricular conduction delay no acute ST-T wave changes - Radiology Data Interpreted by me: I did interpret the imaging evidence of right sided infiltrate on x-ray CT showed no definitive evidence of pulmonary embolus. Disposition Clinical Impression: Pneumonia, COPD exacerbation, Anemia, Chronic renal insufficiency, Hypocalcemia Disposition: ADMITTED IP TO THIS HOSP Condition: Fair
--- NOTE | 2022-08-08 13:19 | XR ---
EXAMINATION TYPE: XR chest 1V portable DATE OF EXAM: 08/08/2022 COMPARISON: 06/21/2022 HISTORY: Shortness of breath TECHNIQUE: Single frontal view of the chest is obtained. FINDINGS: Postsurgical changes cervical spine. There is improved aeration basis. Small right-sided p leural effusion persists. No overt failure. Heart remains mildly prominent hypertrophic degenerative changes of the spine.. Surgical changes left shoulder. Arthropathy right shoulder IMPRESSION: 1. Right basilar infiltrate with small right effusion. No overt failure.
[2022-08-08 13:23] LABS: Basophils # (A) 0.1 k/uL (0-0.2); Basophils % (A) 0 %; Eosinophils # (A) 0.3 k/uL (0-0.7); Eosinophils % (A) 2 %; HCT 33.4 % (34.0-46.0); HGB 10.2 gm/dL (11.4-16.0); Hypochromasia Moderate; Lymphocytes # (A) 4.3 k/uL (1.0-4.8); Lymphocytes % (A) 30 %; MCH 26.8 pg (25.0-35.0); MCHC 30.7 g/dL (31.0-37.0); MCV 87.2 fL (80.0-100.0); Mean Platelet Volume 7.9; Monocytes # (A) 0.6 k/uL (0-1.0); Monocytes % (A) 4 %; Neutrophils # (A) 8.8 k/uL (1.3-7.7); Neutrophils % (A) 61 %; Platelet Count 415 k/uL (150-450); RBC 3.83 m/uL (3.80-5.40); RDW 15.8 % (11.5-15.5); WBC 14.3 k/uL (3.8-10.6)
[2022-08-08 13:43] LABS: Albumin 3.8 g/dL (3.5-5.0); Calcium 8.2 mg/dL (8.4-10.2); Magnesium 2.7 mg/dL (1.6-2.3); Potassium 4.8 mmol/L (3.5-5.1); Total Bilirubin 0.4 mg/dL (0.2-1.3); Total Protein 7.2 g/dL (6.3-8.2)
[2022-08-08 13:53] LABS: Prothrombin Time 10.6 sec (9.0-12.0)
[2022-08-08 13:54] LABS: Appearance,Urine Cloudy (Clear); Bacteria,Urine Rare /hpf; Bilirubin,Urine Negative (Negative); Blood,Urine Negative (Negative); Color,Urine Yellow; Glucose,Urine (UA) Negative (Negative); Hyaline Casts,Urine 4 /lpf (0-2); Ketones,Urine Negative (Negative); Leukocyte Esterase,Urine Large (Negative); Nitrite,Urine Negative (Negative); PH, Urine 5.5 (5.0-8.0); Protein,Urine 1+ (Negative); RBC,Urine 2 /hpf (0-5); Specific Gravity,Urine 1.015 (1.001-1.035); Squamous Epithelial Cell,Urine <1 /hpf (0-4); Urobilinogen,Urine <2.0 mg/dL (<2.0); WBC,Urine 165 /hpf (0-5)
[2022-08-08] MEDS ORDERED: ONDANSETRON 4 MG/2 ML VIAL IVP STA (14:09)
[2022-08-08] MEDS ORDERED: cefTRIAXone IN SWFI 1,000 MG/10 ML SYRINGE IVP STA (15:01)
[2022-08-08] MEDS ORDERED: SODIUM CHLORIDE 0.9% 1,000 ML IV STA ×3 (15:01→15:44)
[2022-08-08] MEDS ORDERED: PROCHLORPERAZINE INJ 10 MG/2 ML VIAL IVP STA ×2 (15:02→18:22)
--- NOTE | 2022-08-08 15:30 | XR ---
EXAMINATION TYPE: XR KUB portable DATE OF EXAM: 08/08/2022 COMPARISON: NONE HISTORY: Vomiting TECHNIQUE: One view abdominal series FINDINGS: Degenerative changes in the spine stomach is massively distended. Coarsened markings at the lung base s likely pulmonary fibrosis. Significant retained fecal ring involving the left colon. Additional dil ated bowel loops are seen. IMPRESSION: 1. Marked gastric distention. There are additional small bowel loops dilated. Correlate for obstructi on. Possibly related to retained debris within the rectum and sigmoid colon.
--- NOTE | 2022-08-08 17:41 | CT ---
EXAMINATION TYPE: CT angio chest CT DLP: 2445.2 mGycm, Automated exposure control for dose reduction was used. DATE OF EXAM: 08/08/2022 5:13 PM COMPARISON: 06/18/2017 CLINICAL INDICATION:Female, 87 years old with history of PE suspected; abdominal pain and elevated d- dimer TECHNIQUE/CONTRAST: CTA scan of the thorax is performed with IV Contrast, patient injected with 80 mL of Isovue 370, pulm onary embolism protocol. MIP images are created and reviewed these are created on a separate worksta tion.. FINDINGS: Pulmonary Artery: There is no evidence for a filling defect within the pulmonary vasculature to sugge st acute pulmonary embolism. The pulmonary artery is enlarged measuring up to 3.5 cm.. Lungs/Pleura: Scattered tree-in-bud opacities and nodular opacities are seen throughout the lungs wit h more consolidation changes in the right lower lobe. Airway: Opacified right lower lobe airways. Heart: The heart is enlarged for size. There is coronary artery atherosclerosis. Vasculature: No evidence of aortic aneurysm. Mediastinum: No gross evidence of adenopathy. Musculoskeletal: No acute osseous abnormalities, multilevel disc degeneration changes throughout the spine. Fixation changes to the lower cervical spine which appear in appropriate position. Soft Tissues: Unremarkable. Lower neck: No significant findings. Upper Abdomen: Gallbladder surgically absent. IMPRESSION: 1. No evidence of pulmonary embolism. 2. Cardiomegaly with pulmonary vascular congestion correlate with serum BNP for congestive heart fail ure. 3. Scattered airspace opacities with more consolidation like changes in the right lung base. Correlat e for infectious/inflammatory process. Rule out aspiration.
--- NOTE | 2022-08-08 17:50 | CT ---
EXAMINATION TYPE: CT abdomen pelvis w con CT DLP: 2445.2 mGycm, Automated exposure control for dose reduction was used. DATE OF EXAM: 08/08/2022 5:13 PM COMPARISON: None CLINICAL INDICATION:Female, 87 years old with history of Abdominal pain, acute, nonlocalized; abdomin al pain and elevated d-dimer TECHNIQUE: Axial CT of the abdomen and pelvis. Sagittal and coronal reformats were created on a [employer] workstation. Contrast used: Isovue 370 with IV Contrast, Oral contrast used: without Oral Contrast FINDINGS: LIVER: Unremarkable GALLBLADDER AND BILE DUCTS: Gallbladder is surgically absent with mild intrahepatic and extra hepatic biliary dilatation likely physiologic and a postcholecystectomy change. No evidence of choledocholit hiasis. PANCREAS: Unremarkable. SPLEEN: Unremarkable. ADRENAL GLANDS: Unremarkable. KIDNEYS AND URETERS: No evidence of hydronephrosis or renal calculus. The ureters are unremarkable. PELVIS BLADDER: Nondistended with Hylton catheter in place. REPRODUCTIVE: Right ovarian lesion measuring 4.3 x 3.6 cm appears to contain fat and other debris. O ther calcifications. ABDOMEN & PELVIS STOMACH AND BOWEL: No evidence of bowel obstruction. There is a large stool burden throughout the co [place]. Gaseous dilation of the stomach. PERITONEUM/RETROPERITONEUM: No evidence of pneumoperitoneum or free fluid. VASCULATURE: No evidence of aortic aneurysm. Atherosclerosis of the arterial vasculature. MUSCULOSKELETAL: No acute osseous abnormalities, fixation changes in the lower lumbar spine hardware appears in appropriate position. LYMPH NODES: No gross evidence for lymphadenopathy SOFT TISSUE/ABDOMINAL WALL: Fat-containing umbilical hernia. IMPRESSION: 1. Extensive stool burden throughout the colon. 2. Suspected right ovarian dermoid/teratoma measuring up to 4.3 cm. 3. Hylton catheter in appropriate position. 4. Fixation changes to the spine which appear in appropriate position. 5. Please see dedicated CT chest for findings regarding the chest.
[2022-08-08] MEDS ORDERED: PNEUMONIA PROTOCOL UTILIZED 1 EACH MISC PO PRN (19:25)
--- NOTE | 2022-08-08 20:57 | XR ---
EXAMINATION TYPE: XR KUB portable DATE OF EXAM: 08/08/2022 8:45 PM INDICATION: Patient age:Female; 87 years old; Reason for study: ng tube placement; COMPARISON: CT abdomen pelvis 08/08/2022 along with pre-NG tube placement radiograph 08/08/2022. TECHNIQUE: One radiographic view of the abdomen was obtained. FINDINGS: Nasogastric tube in place with distal tip and side-port projecting over the gastric lumen. There is postsurgical changes spine and right upper quadrant cholecystectomy clips present. There is gaseous distention of the stomach lumen. Remainder of the bowel gas pattern is relatively unremarkabl e.. No obvious acute fracture. No abnormal calcifications are present. Fecal material and gas are de monstrated throughout the colon and rectum. IMPRESSION: Nasogastric tube with distal tip and side-port projecting over the gastric lumen.
[2022-08-08] MEDS ORDERED: ONDANSETRON 4 MG/2 ML VIAL IVP PRN (21:21)
[2022-08-08] MEDS ORDERED: NA PHOS,M-B/NA PHOS,DI-BA 133 ML ENEMA RECTAL ONE (21:51)
[2022-08-08] MEDS: ACETAMINOPHEN IV (For NPO) 1,000 MG in EMPTY BAG 1 BAG IVPB SCH (21:54)
[2022-08-09] MEDS: ACETAMINOPHEN IV (For NPO) 1,000 MG in EMPTY BAG 1 BAG IVPB SCH ×2 (03:45→09:37)
[2022-08-09] MEDS ORDERED: FUROSEMIDE 10 MG/ML 2 ML VIAL IV ONE ×2 (04:12→06:07)
[2022-08-09] MEDS ORDERED: SODIUM CHLORIDE 0.9% 250 ML IV SCH (04:15)
[2022-08-09 04:25] LABS: Glucose,Whole Blood 143 mg/dL (70-110)
[2022-08-09] MEDS ORDERED: SODIUM CHLORIDE 0.9% 1,000 ML IV ONE (06:54)
[2022-08-09] MEDS ORDERED: PIPERACILLIN-TAZOBACTAM 3.375 GM in SODIUM CHLORIDE 0.9% 100 ML IVPB SCH (09:00)
[2022-08-09] MEDS: PANTOPRAZOLE 40 MG/10 ML VIAL IVP SCH (10:06)
[2022-08-09] MEDS ORDERED: IPRATROPIUM-ALBUTEROL 3 ML NEB INHALATION PRN (10:08)
[2022-08-09] MEDS: polyethylene glycoL 3350 17 GM POWD.PACK PO SCH ×2 (10:14→21:27)
[2022-08-09] MEDS ORDERED: LEVOFLOXACIN 750MG-D5W PMX 750 MG in DEXTROSE/WATER 1 150ML.BAG IVPB SCH (11:00)
[2022-08-09 11:23] LABS: HCT 26.7 % (34.0-46.0); Hypochromasia Marked; MCH 26.6 pg (25.0-35.0); MCHC 29.9 g/dL (31.0-37.0); MCV 88.8 fL (80.0-100.0); Mean Platelet Volume 7.9; Platelet Count 300 k/uL (150-450); RBC 3.01 m/uL (3.80-5.40); RDW 15.8 % (11.5-15.5); WBC 19.1 k/uL (3.8-10.6)
[2022-08-09 11:41] LABS: Magnesium 2.6 mg/dL (1.6-2.3); Potassium 4.6 mmol/L (3.5-5.1)
[2022-08-09] MEDS: IPRATROPIUM-ALBUTEROL 3 ML NEB INHALATION SCH ×3 (11:52→19:29)
[2022-08-09] MEDS: TAMSULOSIN 0.4 MG CAP.ER.24H PO SCH (11:55)
[2022-08-09] MEDS: INSULIN ASPART (NovoLOG) 100 UNIT/ML VIAL SQ SCH ×2 (11:56→18:04)
[2022-08-09 11:57] LABS: Glucose,Whole Blood 185 mg/dL (70-110)
--- NOTE | 2022-08-09 13:07 | P.HPIM ---
History of Present Illness H&P Date: 08/09/22 Chief Complaint: Shortness of breath,Altered mental statConstipation, syncope, hyperglycemia This is a pleasant 87-year-old female with past medical history of CAD, [place], stent placement, aortic stenosis ,chronic hypoxic respiratory failure,on 2 L nasal cannula ,Covid 06/22,COPD, former nicotine dependence, obstructive sleep apnea ,CVA/TIA, diabetes mellitus, hypertension, hyperlipidemia, hypothyroidism, recurrent UTIs,CKD III, urinary retention, anemia, bilateral peripheral neuropathy, gait dysfunction,utilizing walker, falls, morbid obesity-BMI 39.9 and multiple other medical issues brought in via ambulance, on BiPAP to the ER for change in level of consciousness, syncope, nausea, vomiting, hyperglycemia, constipation-on [place], shortness of breath, recently discharged from [facility] subacute rehab on 08/06/2022. Information being obtained from chart and daughter at bedside. Daughter reports they are unsure of her last bowel movement, possibly , 08/03. [facility] documented large bowel movement on 08/04 and 08/05. Reports yesterday blood sugars were running high in the 400s, patient developed nausea and vomiting, change in sensorium, passed out while on the toilet. Reports patient "coughs all the time, but has COPD", no knowledge of fevers, denies chills. Denies chest pain, palpitations, positive shortness of breath. Developed hypotension in the ER in addition to emesis, received fluid bolus .Chest x-ray reported right basilar infiltrate with persistent small right effusion, no overt failure. EKG reported sinus rhythm, troponin negative 1. KUB reported marked gastric distention, additional small bowel loops dilated, possibly retained debris within the rectum and sigmoid colon. 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 NG tube placed in the ER with 1200 MLS bilious output reported overnight. D-dimer elevated 4.73, CT angio chest reported no evidence of pulmonary embolism,more consolidation changes in the right lung base, rule out aspiration. ProBNP 426. UA reported many WBC clumps, 165 WBCs, large leukocytes, negative nitrates, culture pending. Afebrile, on admission temperature 96.7, currently 98.8. WBC 14.3. lactic acid 3.5, repeat level pending. Hemoglobin 10.2, platelets 4:15, a I's within normal limits, BUN 40, creatinine 1.5. BiPAP weaned off, currently requiring 6 L nasal cannula O2 to maintain O2 sats in the low 90s. Review of Systems ROS unable to complete at this time r/t patient's current mental status. Past Medical History Past Medical History: Coronary Artery Disease (CAD), Chest Pain / Angina, Heart Failure, COPD, CVA/TIA, Diabetes Mellitus, Hyperlipidemia, Hypertension, Myocardial Infarction (MN), Osteoarthritis (OA), Renal Disease, Sleep Apnea/CPAP/BIPAP, Thyroid Disorder Additional Past Medical History / Comment(s): Pt recently admitted to [facility] on 05/21/22/ gravely disabled, UTI, acquired hypothyroidism, exacerbation copd and chf, anemia. Other hx: IDDM type II, neuropathy bilateral hands/feet, CKD stage III, urinary retention, UTIs, anemia, home oxygen use ATC, bilateral lower extremity edema, current pressure ulcer decub per pt, gastritis, hiatal hernia, aortic stenosis, hemorrhoids. Last Myocardial Infarction Date:: 06/18/17 History of Any Multi-Drug Resistant Organisms: None Reported, ESBL Date of last positivie culture/infection: 09/06/17 MDRO Source:: ESBL URINE Past Surgical History: Back Surgery, Heart Catheterization, Heart Catheterization With Stent, Joint Replacement, Orthopedic Surgery Additional Past Surgical History / Comment(s): Lumbar laminectomy decompression fusion L3-4 and L5-S1 with cell saver, lumbar instrumentation removal L4-5, L4- L5 laminectomy, BILATERAL KNEE REPLACEMENTS, ORIF RIGHT ANKLE, CERVICAL FUSION, bilateral rotator cuff repair, bilateral wrist carpal tunnel releases, pain procedures, left breast lumpectomy-benign, bilateral varicose vein stripping, bilateral cataracts, heart cath with 5 stents august 2021, egd/colonoscopy 04/13/22 Past Anesthesia/Blood Transfusion Reactions: No Reported Reaction Additional Past Anesthesia/Blood Transfusion Reaction / Comment(s): blood transfusion 04/01/[address] estrella's notes last hospital stay Date of Last Stent Placement:: 08/30/2021 Past Psychological History: No Psychological Hx Reported Smoking Status: Former smoker - Past Family History Father Family Medical History: Myocardial Infarction (MN) Additional Family Medical History / Comment(s): Father at 40 of a MN. Mother Family Medical History: CVA/TIA Additional Family Medical History / Comment(s): Mother had a CVA Medications and Allergies Home Medications Medication Instructions Recorded Confirmed Type Nitroglycerin Sl Tabs [Nitrostat] 0.4 mg SL Q5M PRN 07/20/15 08/08/22 History Atorvastatin Calcium [Lipitor] 40 mg PO HS #1 tab 08/04/15 08/08/22 Rx Fluticasone/Umeclidin/Vilanter 1 puff INHALATION RT-HS 10/15/21 08/08/22 History [Trelegy Ellipta 100-62.5-25] Apixaban [Eliquis] 2.5 mg PO BID 12/09/21 08/08/22 History Amitriptyline HCl [Elavil] 100 mg PO HS 03/13/22 08/08/22 History Cyanocobalamin (Vitamin B-12) 1,000 mcg PO DAILY 03/13/22 08/08/22 History [Vitamin B-12] Gabapentin 300 mg PO TID #9 cap 04/04/22 08/08/22 Rx Furosemide [Lasix] 40 mg PO DAILY tab 04/13/22 08/08/22 Rx Amiodarone [Cordarone] 200 mg PO DAILY #90 tab 04/14/22 08/08/22 Rx Metoprolol Tartrate [Lopressor] 25 mg PO BID tab 04/14/22 08/08/22 Rx HYDROcodone/APAP 5-325MG [[place] 1 tab PO Q6H PRN 05/21/22 08/08/22 History 5-325] Insulin Lispro [humaLOG Kwikpen] See Protocol SQ ACHS PRN 05/21/22 08/08/22 History Calcium Carbonate [Tums] 1,000 mg PO Q6H PRN 08/08/22 08/08/22 History Docusate [Colace] 100 mg PO BID 08/08/22 08/08/22 History Ipratropium-Albuterol Nebulize 3 ml INHALATION RT-QID 08/08/22 08/08/22 History [Duoneb 0.5 mg-3 mg/3 ml Soln] Levothyroxine Sodium [Synthroid] 75 mcg PO DAILY 08/08/22 08/08/22 History Psyllium Husk 100% [Metamucil 6 gm PO DAILY 08/08/22 08/08/22 History Packet] Tamsulosin [Flomax] 0.4 mg PO DAILY 08/08/22 08/08/22 History metFORMIN HCL 1,000 mg PO BID 08/08/22 08/08/22 History Allergies Allergy/AdvReac Type Severity Reaction Status Date / Time Penicillins Allergy Rash/Hives Verified 08/08/22 17:14 Physical Exam Vitals: Vital Signs Temp Pulse Resp BP Pulse Ox FiO2 08/09/22 08:00 74 14 80/44 94 L 08/09/22 07:57 93 L 08/09/22 07:04 98.8 F 08/09/22 07:00 73 23 92/39 95 08/09/22 06:52 72 16 92/39 93 L 08/09/22 05:57 81 16 99/63 92 L 08/09/22 05:15 100/59 08/09/22 04:32 71 91/37 08/09/22 04:25 73 22 84/38 93 L 08/09/22 03:23 74 26 H 92 L 08/09/22 02:14 74 24 88/44 93 L 08/09/22 02:00 74 22 96/39 85 L 08/09/22 01:00 69 24 80/56 95 08/09/22 00:51 74 12 95/52 93 L 08/08/22 23:03 72 26 H 95/52 96 08/08/22 22:11 73 20 85/65 93 L 08/08/22 21:20 73 20 105/88 93 L 08/08/22 20:20 73 18 110/66 95 08/08/22 19:50 66 18 107/57 94 L 08/08/22 18:30 76 27 H 71/61 90 L 08/08/22 17:30 62 19 96/75 93 L 08/08/22 16:36 24 08/08/22 16:30 59 L 18 101/44 94 L 08/08/22 16:00 58 L 20 85/38 94 L 08/08/22 15:30 60 24 91/44 98 08/08/22 15:00 63 24 81/50 98 08/08/22 14:30 60 24 87/46 96 08/08/22 13:30 65 20 144/97 94 L 08/08/22 13:13 84 08/08/22 13:02 50 08/08/22 12:54 86 100 08/08/22 12:53 96.7 F L 08/08/22 12:47 24 118/76 87 L Intake and Output 08/08/22 08/09/22 08/09/22 22:59 06:59 14:59 Output Total 1200 Balance -1200 Output: Gastric Drainage 1200 GENERAL EXAM: Alert, pleasantly confused, morbidly obese, sitting up on stretcher,NAD. HEAD: Normocephalic. EYES: Normal reaction of pupils, equal size. NOSE: Clear with pink turbinates. NG tube present. THROAT: No erythema or exudates. NECK: No masses, no JVD. CHEST: No chest wall deformity. LUNGS: Equal air entry with bilateral bases diminished, fine crackles in the right lung base. CVS: S1 and S2 normal with no audible murmur, regular rhythm. ABDOMEN: Soft, distended, diffuse tenderness, No hepatosplenomegaly, hypoactive bowel sounds, no guarding or rigidity. SKIN: No rashes, bilateral forearm skin tears with dressings clean dry and intact, (chronic sacral pressure ulcer- CENTRAL NERVOUS SYSTEM: No focal deficits, tone is normal in all 4 extremities. EXTREMITIES: There is 1+ peripheral edema. No clubbing, no cyanosis. Peripheral pulses are intact. Results CBC & Chem 7: 08/08/22 13:00 08/08/22 13:00 Labs: Abnormal Lab Results - Last 24 Hours (Table) 08/08/22 08/08/22 08/08/22 Range/Units 13:00 13:00 13:00 WBC 14.3 H (3.8-10.6) k/uL Hgb 10.2 L (11.4-16.0) gm/dL Hct 33.4 L (34.0-46.0) % MCHC 30.7 L (31.0-37.0) g/dL RDW 15.8 H (11.5-15.5) % Neutrophils # 8.8 H (1.3-7.7) k/uL D-Dimer 4.73 H (<0.60) mg/L FEU BUN 40 H (7-17) mg/dL Creatinine 1.50 H (0.52-1.04) mg/dL Glucose 131 H (74-99) mg/dL POC Glucose (mg/dL) (70-110) mg/dL Plasma Lactic Acid Russel (0.7-2.0) mmol/L Calcium 8.2 L (8.4-10.2) mg/dL Magnesium 2.7 H (1.6-2.3) mg/dL Urine Appearance (Clear) Urine Protein (Negative) Ur Leukocyte Esterase (Negative) Urine WBC (0-5) /hpf Urine WBC Clumps (None) /hpf Urine Bacteria (None) /hpf Hyaline Casts (0-2) /lpf 08/08/22 08/08/22 08/08/22 Range/Units 13:00 13:02 13:10 WBC (3.8-10.6) k/uL Hgb (11.4-16.0) gm/dL Hct (34.0-46.0) % MCHC (31.0-37.0) g/dL RDW (11.5-15.5) % Neutrophils # (1.3-7.7) k/uL D-Dimer (<0.60) mg/L FEU BUN (7-17) mg/dL Creatinine (0.52-1.04) mg/dL Glucose (74-99) mg/dL POC Glucose (mg/dL) 148 H (70-110) mg/dL Plasma Lactic Acid Russel 3.8 H* (0.7-2.0) mmol/L Calcium (8.4-10.2) mg/dL Magnesium (1.6-2.3) mg/dL Urine Appearance Cloudy H (Clear) Urine Protein 1+ H (Negative) Ur Leukocyte Esterase Large H (Negative) Urine WBC 165 H (0-5) /hpf Urine WBC Clumps Many H (None) /hpf Urine Bacteria Rare H (None) /hpf Hyaline Casts 4 H (0-2) /lpf 08/08/22 08/08/22 08/09/22 Range/Units 19:48 23:02 03:27 WBC (3.8-10.6) k/uL Hgb (11.4-16.0) gm/dL Hct (34.0-46.0) % MCHC (31.0-37.0) g/dL RDW (11.5-15.5) % Neutrophils # (1.3-7.7) k/uL D-Dimer (<0.60) mg/L FEU BUN (7-17) mg/dL Creatinine (0.52-1.04) mg/dL Glucose (74-99) mg/dL POC Glucose (mg/dL) (70-110) mg/dL Plasma Lactic Acid Russel 2.1 H* 3.5 H* 2.6 H* (0.7-2.0) mmol/L Calcium (8.4-10.2) mg/dL Magnesium (1.6-2.3) mg/dL Urine Appearance (Clear) Urine Protein (Negative) Ur Leukocyte Esterase (Negative) Urine WBC (0-5) /hpf Urine WBC Clumps (None) /hpf Urine Bacteria (None) /hpf Hyaline Casts (0-2) /lpf 08/09/22 08/09/22 Range/Units 04:24 08:03 WBC (3.8-10.6) k/uL Hgb (11.4-16.0) gm/dL Hct (34.0-46.0) % MCHC (31.0-37.0) g/dL RDW (11.5-15.5) % Neutrophils # (1.3-7.7) k/uL D-Dimer (<0.60) mg/L FEU BUN (7-17) mg/dL Creatinine (0.52-1.04) mg/dL Glucose (74-99) mg/dL POC Glucose (mg/dL) 143 H (70-110) mg/dL Plasma Lactic Acid Russel 2.5 H* (0.7-2.0) mmol/L Calcium (8.4-10.2) mg/dL Magnesium (1.6-2.3) mg/dL Urine Appearance (Clear) Urine Protein (Negative) Ur Leukocyte Esterase (Negative) Urine WBC (0-5) /hpf Urine WBC Clumps (None) /hpf Urine Bacteria (None) /hpf Hyaline Casts (0-2) /lpf Microbiology - Last 24 Hours (Table) 08/08/22 13:10 Urine Culture - Preliminary Urine,Voided Assessment and Plan Assessment: Abdominal pain, constipation, possible ileus, last bowel movement reported 2/4. Acute on chronic hypoxic respiratory failure, wears 2 L nasal cannula O2 ATC at home, right lower lobe infiltrate, persistent small right-sided pleural effusion reported per chest x-ray, status post BiPAP Syncope, possibly vasovagal, multifactorial, secondary to all the above Acute metabolic encephalopathy, altered mental status, secondary to all the above Lactic acidosis Acute on CKD III Diabetes mellitus, family reports hyperglycemic at home, controlled IP, A1c pending Recent COVID-19 infection, 06/22 COPD History of chronic diastolic CHF. Possible acute UTI, History of urinary retention, recurrent UTIs, most recently with Klebsiella pneumoniae and enterococcus cloacae, cultures finalizing. Chronic atrial fibrillation, anticoagulated with Eliquis Valvular heart disease, moderate aortic stenosis, preserved LV function Chronic anemia Generalized weakness, gait dysfunction, multiple falls recently reported, recently discharged from [facility] subacute rehab. 08/06/22. History of CVA, TIA History of Hypertension, borderline hypotension Hyperlipidemia Hypothyroidism Morbid obesity, BMI 39.9 Plan: Continue on current medication regime ,monitoring and symptomatic sara tment. Labs/Covid screening ordered. Sputum and urine cultures pending. Nebulized bronchodilators and antibiotics adjusted. Speech therapy consulted regarding potential aspiration. Surgery consulted as patient had 1200 MLS ileus drainage via NG overnight, accompanied by diffuse abdominal pain. Molasses and soapsuds enemas, MiraLAX ordered-discussed with RN. Pulmonary consulted regarding hypoxia. PT/OT consulted .Social work/case management consulted, anticipate return to subacute rehab at discharge. The impression and plan of care has been dictated as directed. : I performed a history and examination of this patient, discussed the same with the dictator. I agree with the dictator's note ,documented as a scribe. Any additional findings or plans will be noted.
[2022-08-09] MEDS ORDERED: ACETAMINOPHEN IV (For NPO) 1,000 MG in EMPTY BAG 1 BAG IVPB PRN (13:58)
--- NOTE | 2022-08-09 15:50 | XR ---
EXAMINATION TYPE: XR chest 1V confirm line [facility] DATE OF EXAM: 08/09/2022 CLINICAL HISTORY: NG tube placement. TECHNIQUE: Single AP portable upright view of the chest is obtained. COMPARISON: CTA chest from one day earlier FINDINGS: There is a new nasogastric tube projecting below diaphragm. Postsurgical change to the cervical spine is partially imaged. There is mild cardiomegaly and bibasil ar opacities having more consolidative appearance in the right lung base redemonstrated. Osseous stru ctures are demineralized. There is partial visualization of surgical change in the lumbar spine with underlying scoliotic curvature redemonstrated. Cholecystectomy clip is noted. IMPRESSION: 1. New nasogastric tube projects below diaphragm. 2. Mild cardiomegaly with bibasilar acute infiltrate and/or atelectasis redemonstrated.
--- NOTE | 2022-08-09 16:23 | P.CNPUL ---
History of Present Illness Consult date: 08/09/22 Requesting physician: Phan Hartman Jr Reason for consult: dyspnea, COPD Chief complaint: Syncope History of present illness: This is a 87-year-old female patient with a known history of coronary artery disease with previous stent placements, hypothyroidism, morbid obesity, multiple orthopedic surgeries, congestive heart failure, diabetes bella, hypertension, hyperlipidemia, osteoarthritis, obstructive sleep apnea on BiPAP, CVA/TIA, oxygen dependent and she was recently discharged from here to [facility] on the [place] and was just home for 3 days when she developed a syncopal episode yesterday. Her that may related to low blood sugar and try to give her oral issues which she vomited. She was brought into the emergency room yesterday. She is seen today in consultation. She remains in the emergency department. She is sitting up in bed. She is basically just moaning and groaning. Her family is at the bedside and provides him permission. She was initially placed on BiPAP. She is currently on 6 L high flow nasal cannula with O2 saturations in the 90s. Afebrile. Somewhat hypotensive. Blood culture reveals no growth to date. Urine culture pending. White count 19.1. H emoglobin 8.0. Sodium 136. Potassium 4.6. Bicarb 17. BUN 66. Creatinine 2.27. Glucose 145. D-dimer 4.73. ProBNP 426. Troponin negative 1. CT angiogram ruled out pulmonary embolism. There is evidence of cardiomegaly with pulmonary vascular congestion. Scattered airspace opacities more consolidation in the right lung base. Rule out aspiration. Computed tomography scan of the abdomen and pelvis revealed extensive stool burden throughout the colon. 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 Today's chest x-ray shows Nasogastric tube in place. Mild cardiomegaly with bibasilar acute infiltrate and/or atelectasis. She's been initiated on Symbicort, DuoNeb inh alations, antibiotics in the form of Levaquin. She is anticoagulated with Eliquis. Review of Systems ROS unobtainable: due to mental status Past Medical History Past Medical History: Coronary Artery Disease (CAD), Chest Pain / Angina, Heart Failure, COPD, CVA/TIA, Diabetes Mellitus, Hyperlipidemia, Hypertension, George cardial Infarction ([place]), Osteoarthritis (OA), Renal Disease, Sleep Apnea/CPAP/BIPAP, Thyroid Disorder Additional Past Medical History / Comment(s): Pt recently admitted to [facility] on 05/21/22/ gravely disabled, UTI, acquired hypothyroidism, exacerbation copd and chf, anemia. Other hx: IDDM type II, neuropathy bilateral hands/feet, CKD stage III, urinary retention, UTIs, anemia, home oxygen use ATC, bilateral lower extremity edema, current pressure ulcer decub per pt, gastritis, hiatal hernia, aortic stenosis, hemorrhoids. Last Myocardial Infarction Date:: 06/18/17 History of Any Multi-Drug Resistant Organisms: None Reported, ESBL Date of last positivie culture/infection: 09/06/17 MDRO Source:: ESBL URINE Past Surgical History: Back Surgery, Heart Catheterization, Heart Catheterization With Stent, Joint Replacement, Orthopedic Surgery Additional Past Surgical History / Comment(s): Lumbar laminectomy decompression fusion L3-4 and L5-S1 with cell saver, lumbar instrumentation removal L4-5, L4- L5 laminectomy, BILATERAL KNEE REPLACEMENTS, ORIF RIGHT ANKLE, CERVICAL FUSION, bilateral rotator cuff repair, bilateral wrist carpal tunnel releases, pain procedures, left breast lumpectomy-benign, bilateral varicose vein stripping, bilateral cataracts, heart cath with 5 stents august 2021, egd/colonoscopy 04/13/22 Past Anesthesia/Blood Transfusion Reactions: No Reported Reaction Additional Past Anesthesia/Blood Transfusion Reaction / Comment(s): blood transfusion 04/01/[address] estrella's notes last hospital stay Date of Last Stent Placement:: 08/30/2021 Past Psychological History: No Psychological Hx Reported Smoking Status: Former smoker - Past Family History Father Family Medical History: Myocardial Infarction ([place]) Additional Family Medical History / Comment(s): Father at 40 of a [place]. Mother Family Medical History: CVA/TIA Additional Family Medical History / Comment(s): Mother had a CVA Medications and Allergies Home Medications Medication Instructions Recorded Confirmed Type Nitroglycerin Sl Tabs [Nitrostat] 0.4 mg SL Q5M PRN 07/20/15 08/08/22 History Atorvastatin Calcium [Lipitor] 40 mg PO HS #1 tab 08/04/15 08/08/22 Rx Fluticasone/Umeclidin/Vilanter 1 puff INHALATION RT-HS 10/15/21 08/08/22 History [Trelegy Ellipta 100-62.5-25] Apixaban [Eliquis] 2.5 mg PO BID 12/09/21 08/08/22 History Amitriptyline HCl [Elavil] 100 mg PO HS 03/13/22 08/08/22 History Cyanocobalamin (Vitamin B-12) 1,000 mcg PO DAILY 03/13/22 08/08/22 History [Vitamin B-12] Gabapentin 300 mg PO TID #9 cap 04/04/22 08/08/22 Rx Furosemide [Lasix] 40 mg PO DAILY tab 04/13/22 08/08/22 Rx Amiodarone [Cordarone] 200 mg PO DAILY #90 tab 04/14/22 08/08/22 Rx Metoprolol Tartrate [Lopressor] 25 mg PO BID tab 04/14/22 08/08/22 Rx HYDROcodone/APAP 5-325MG [[place] 1 tab PO Q6H PRN 05/21/22 08/08/22 History 5-325] Insulin Lispro [humaLOG Kwikpen] See Protocol SQ ACHS PRN 05/21/22 08/08/22 History Calcium Carbonate [Tums] 1,000 mg PO Q6H PRN 08/08/22 08/08/22 History Docusate [Colace] 100 mg PO BID 08/08/22 08/08/22 History Ipratropium-Albuterol Nebulize 3 ml INHALATION RT-QID 08/08/22 08/08/22 History [Duoneb 0.5 mg-3 mg/3 ml Soln] Levothyroxine Sodium [Synthroid] 75 mcg PO DAILY 08/08/22 08/08/22 History Psyllium Husk 100% [Metamucil 6 gm PO DAILY 08/08/22 08/08/22 History Packet] Tamsulosin [Flomax] 0.4 mg PO DAILY 08/08/22 08/08/22 History metFORMIN HCL 1,000 mg PO BID 08/08/22 08/08/22 History Allergies Allergy/AdvReac Type Severity Reaction Status Date / Time Penicillins Allergy Rash/Hives Verified 08/08/22 17:14 Physical Exam Vitals: Vital Signs Temp Pulse Resp BP Pulse Ox 08/09/22 15:45 86 08/09/22 15:39 86 08/09/22 15:00 79 29 H 85/36 94 L 08/09/22 14:00 76 21 73/42 95 08/09/22 13:00 80 14 93/61 94 L 08/09/22 12:12 78 08/09/22 12:00 79 17 81/41 95 08/09/22 11:52 78 08/09/22 11:00 75 14 94/50 94 L 08/09/22 10:00 73 23 93/44 90 L 08/09/22 09:00 76 22 85/55 96 08/09/22 08:00 74 14 80/44 94 L 08/09/22 07:57 93 L 08/09/22 07:04 98.8 F 08/09/22 07:00 73 23 92/39 95 08/09/22 06:52 72 16 92/39 93 L 08/09/22 05:57 81 16 99/63 92 L 08/09/22 05:15 100/59 08/09/22 04:32 71 91/37 08/09/22 04:25 73 22 84/38 93 L 08/09/22 03:23 74 26 H 92 L 08/09/22 02:14 74 24 88/44 93 L 08/09/22 02:00 74 22 96/39 85 L 08/09/22 01:00 69 24 80/56 95 08/09/22 00:51 74 12 95/52 93 L 08/08/22 23:03 72 26 H 95/52 96 08/08/22 22:11 73 20 85/65 93 L 08/08/22 21:20 73 20 105/88 93 L 08/08/22 20:20 73 18 110/66 95 08/08/22 19:50 66 18 107/57 94 L 08/08/22 18:30 76 27 H 71/61 90 L 08/08/22 17:30 62 19 96/75 93 L 08/08/22 16:36 24 08/08/22 16:30 59 L 18 101/44 94 L Intake and Output 08/09/22 08/09/22 08/09/22 06:59 14:59 22:59 Output Total 1200 575 Balance -1200 -575 Output: Gastric Drainage 1200 400 Urine 175 GENERAL EXAM: 87-year-old moderately obese female, sitting up on the stretcher, mostly moaning and groaning, on 6 L high flow nasal cannula. HEAD: Normocephalic. EYES: Normal reaction of pupils, equal size. NOSE: Nasogastric tube secured in place Clear with pink turbinates. THROAT: No erythema or exudates. NECK: No masses, no JVD. CHEST: No chest wall deformity. LUNGS: Equal air entry with crackles in the bilateral bases. CVS: S1 and S2 normal with no audible murmur, regular rhythm. ABDOMEN: No hepatosplenomegaly, normal bowel sounds, no guarding or rigidity. SPINE: No scoliosis or deformity SKIN: No rashes CENTRAL NERVOUS SYSTEM: No focal deficits, tone is normal in all 4 extremities. EXTREMITIES: There is 1-2+ peripheral edema. Changes of chronic venous stasis. No clubbing, no cyanosis. Peripheral pulses are intact. Results - Laboratory Findings CBC and BMP: 08/09/22 10:53 08/09/22 10:53 PT/INR, D-dimer PT 10.6 sec (9.0-12.0) 08/08/22 13:00 INR 1.0 (<1.2) 08/08/22 13:00 D-Dimer 4.73 mg/L FEU (<0.60) H 08/08/22 13:00 Abnormal lab findings: Abnormal Labs 08/08/22 08/08/22 08/08/22 13:00 13:00 13:00 WBC 14.3 H RBC Hgb 10.2 L Hct 33.4 L MCHC 30.7 L RDW 15.8 H Neutrophils # 8.8 H D-Dimer 4.73 H Sodium Carbon Dioxide BUN 40 H Creatinine 1.50 H Glucose 131 H POC Glucose (mg/dL) Plasma Lactic Acid Russel Calcium 8.2 L Magnesium 2.7 H Urine Appearance Urine Protein Ur Leukocyte Esterase Urine WBC Urine WBC Clumps Urine Bacteria Hyaline Casts 08/08/22 08/08/22 08/08/22 13:00 13:02 13:10 WBC RBC Hgb Hct MCHC RDW Neutrophils # D-Dimer Sodium Carbon Dioxide BUN Creatinine Glucose POC Glucose (mg/dL) 148 H Plasma Lactic Acid Russel 3.8 H* Calcium Magnesium Urine Appearance Cloudy H Urine Protein 1+ H Ur Leukocyte Esterase Large H Urine WBC 165 H Urine WBC Clumps Many H Urine Bacteria Rare H Hyaline Casts 4 H 08/08/22 08/08/22 08/09/22 19:48 23:02 03:27 WBC RBC Hgb Hct MCHC RDW Neutrophils # D-Dimer Sodium Carbon Dioxide BUN Creatinine Glucose POC Glucose (mg/dL) Plasma Lactic Acid Russel 2.1 H* 3.5 H* 2.6 H* Calcium Magnesium Urine Appearance Urine Protein Ur Leukocyte Esterase Urine WBC Urine WBC Clumps Urine Bacteria Hyaline Casts 08/09/22 08/09/22 08/09/22 04:24 08:03 10:53 WBC 19.1 H RBC 3.01 L Hgb 8.0 L D Hct 26.7 L MCHC 29.9 L RDW 15.8 H Neutrophils # D-Dimer Sodium Carbon Dioxide BUN Creatinine Glucose POC Glucose (mg/dL) 143 H Plasma Lactic Acid Russel 2.5 H* Calcium Magnesium Urine Appearance Urine Protein Ur Leukocyte Esterase Urine WBC Urine WBC Clumps Urine Bacteria Hyaline Casts 08/09/22 08/09/22 08/09/22 10:53 10:53 11:51 WBC RBC Hgb Hct MCHC RDW Neutrophils # D-Dimer Sodium 136 L Carbon Dioxide 17 L BUN 66 H Creatinine 2.27 H Glucose 145 H POC Glucose (mg/dL) 185 H Plasma Lactic Acid Russel 2.3 H* Calcium 7.0 L Magnesium 2.6 H Urine Appearance Urine Protein Ur Leukocyte Esterase Urine WBC Urine WBC Clumps Urine Bacteria Hyaline Casts 08/09/22 14:10 WBC RBC Hgb Hct MCHC RDW Neutrophils # D-Dimer Sodium Carbon Dioxide BUN Creatinine Glucose POC Glucose (mg/dL) Plasma Lactic Acid Russel 2.5 H* Calcium Magnesium Urine Appearance Urine Protein Ur Leukocyte Esterase Urine WBC Urine WBC Clumps Urine Bacteria Hyaline Casts - Diagnostic Findings Chest x-ray: image reviewed Assessment and Plan Assessment: Syncope suspect secondary to hypotension possibly related to urinary tract infection, sepsis Hypotension secondary to above Acute on chronic hypoxemic respiratory failure secondary to suspected diastolic congestive heart failure Leukocytosis secondary to suspected urinary tract infection Previous history of urinary tract infections Acute on chronic kidney disease Recent COVID-19 infection History of valvular heart disease with aortic valve stenosis and preserved LV function Chronic changes in the right lower lobe with small right pleural effusion Acute on chronic anemia my current hemoglobin 8.0 History of chronic obstructive pulmonary disease History of prior tobacco dependence History of diastolic congestive heart failure History of coronary disease with multiple stent placements History of CVA/TIA History of diabetes mellitus Morbid obesity Hypertension Hyperlipidemia Hypothyroidism Poor overall functional performance based on the above-mentioned multiple comorbidities with recent stay and ECF Plan: The patient was seen and evaluated Chest x-ray, labs and medications reviewed. Continue bronchodilators Anticoagulated with valgus Continue antibiotics for now Check pro calcitonin Titrate the FiO2 as tolerated CODE STATUS to be discussed by primary services Overall prognosis remains guarded We will continue to follow and make further recommendations based on her cli nical status I have personally seen and examined the patient, performed the documentation and the assessment and plan as written. Number of minutes spent on the visit: 20.
--- NOTE | 2022-08-09 16:26 | P.GSCN ---
History of Present Illness Consult date: 08/09/22 History of present illness: CHIEF COMPLAINT: Abdominal pain HISTORY OF PRESENT ILLNESS: This is a 87-year-old female who presented to the hospital with complaints abdominal pain and abdominal distention. She had a syncopal episode while using the bathroom. She also is complaining of shortness of breath and initially needed to be placed on BiPAP. Patient has been c onstipated. She is not having bowel movements. She has been having nausea and vomiting. Daughter at bedside reported that the vomit looked like fecal material. Patient does have abdominal distention and abdominal pain. NG tube was placed with 1200 mL output in the ER. Unfortunately patient did pull out the NG tube. They are really trying to reinsert the NG tube. Computed tomography scan showed no evidence of bowel obstruction did show evidence of constipation. Medicine service has ordered milk and molasses enema. Patient has been hypotensive. She is receiving IV fluids. Surgical service consulted in regards to possible ileus. Patient being regulated by speech therapy for possible aspiration. PAST MEDICAL HISTORY: See list. PAST SURGICAL HISTORY: See list. History of cholecystectomy noted on CT MEDICATIONS: See list. ALLERGIES: See list. SOCIAL HISTORY: No illicit drug use. REVIEW OF SYSTEMS: CONSTITUTIONAL: Denies fever or chills. HEENT: Denies blurred vision, vision changes, or eye pain. Denies hemoptysis ENDOCRINE: Denies heat or cold intolerance. CARDIOVASCULAR: Denies chest pain or pressure. RESPIRATORY: No shortness of breath. GASTROINTESTINAL: Please refer to HPI otherwise unremarkable NEURO: Denies history of seizures. PSYCH: No depression or suicidal ideation HEMATOLOGIC: Denies bleeding disorders. LYMPHATIC: The patient denies any lumps and bumps around the neck. GENITOURINARY: Denies any blood in urine or increased urinary frequency. MUSCULOSKELETAL: Denies myalgias. Denies joint swelling. Denies decreased range of motion beyond patients baseline. SKIN: Denies pruitis. Denies rash. PHYSICAL EXAM: VITAL SIGNS: Reviewed GENERAL: Well-developed in no acute distress. HEENT: No sclera icterus. Extraocular movements grossly intact. Moist buccal mucosa. Head is atraumatic, normocephalic. Hears conversational speech. No nasal drainage. NECK: Supple without lymphadenopathy. CHEST: Non-labored respirations and equal bilateral excursions. CARDIOVASCULAR: Palpable 2+ radial pulses. ABDOMEN: Distended and diffuse tenderness MUSCULOSKELETAL: No clubbing or cyanosis. NEUROLOGIC: No focal or lateralizing signs. Cranial nerves II through XII grossly intact. PSYCH: Appropriate affect. Alert and oriented to person, place and time. SKIN: Well perfused. Good skin turgor. LABORATORY DATA: WBC 14.3 down to 19.1 Hgb 10.2 down to 8.0 platelets 300 D-dimer elevated at 4.73 Sodium 136 potassium 4.6 creatinine elevated at 2.27 Lactic acid 3.5 down to 2.5 magnesium 2.6 LFTs normal troponin negative Urinalysis showing possible UTI. Urine culture pending IMAGING: Computed tomography scan abdomen and pelvis extensive stool burden throughout the colon. Suspected right ovarian dermoid/teratoma measuring up to 4.3 cm. chest CTA no evidence of pulmonary embolism. Cardiomegaly with pulmonary vascular congestion correlate for CHF. Scattered airspace opacities with more consolidation likely changes in the right lung base. Correlate for infectious/inflammatory process. Rule out aspiration. Chest x-ray new NG tube projects below diaphragm. ASSESSMENT: 1. Abdominal pain with abdominal distention 2. Constipation 3. Syncope possibly vasovagal 4. Lactic acidosis 5. Acute on chronic kidney disease 6. Possible UTI 7. History of atrial fibrillation anticoagulated with Eliquis 8. History of CVA PLAN: -Place NG tube for decompression -Keep patient nothing by mouth -Agree with milk of molasses enema ordered by medicine service -Continue to monitor -Hold Eliquis in case surgical intervention required -Further recommendations forthcoming her surgeon Physician Groover Runner note has been reviewed by physician. Signing provider agrees with the documented findings, assessment, and plan of care. Past Medical History Past Medical History: Coronary Artery Disease (CAD), Chest Pain / Angina, Heart Failure, COPD, CVA/TIA, Diabetes Mellitus, Hyperlipidemia, Hypertension, Myocardial Infarction ([place]), Osteoarthritis (OA), Renal Disease, Sleep Apnea/ CPAP/BIPAP, Thyroid Disorder Additional Past Medical History / Comment(s): Pt recently admitted to [facility] on 05/21/22/ gravely disabled, UTI, acquired hypothyroidism, exacerbation copd and chf, anemia. Other hx: IDDM type II, neuropathy bilateral hands/feet, CKD stage III, urinary retention, UTIs, anemia, home oxygen use ATC, bilateral lower extremity edema, current pressure ulcer decub per pt, gastritis, hiatal hernia, aortic stenosis, hemorrhoids. Last Myocardial Infarction Date:: 06/18/17 History of Any Multi-Drug Resistant Organisms: None Reported, ESBL Year Discovered:: 09/06/17 MDRO Source:: ESBL URINE Past Surgical History: Back Surgery, Heart Catheterization, Heart Catheterization With Stent, Joint Replacement, Orthopedic Surgery Additional Past Surgical History / Comment(s): Lumbar laminectomy decompression fusion L3-4 and L5-S1 with cell saver, lumbar instrumentation removal L4-5, L4- L5 laminectomy, BILATERAL KNEE REPLACEMENTS, ORIF RIGHT ANKLE, CERVICAL FUSION, bilateral rotator cuff repair, bilateral wrist carpal tunnel releases, pain procedures, left breast lumpectomy-benign, bilateral varicose vein stripping, bilateral cataracts, heart cath with 5 stents august 2021, egd/colonoscopy 04/13/22 Past Anesthesia/Blood Transfusion Reactions: No Reported Reaction Additional Past Anesthesia/Blood Transfusion Reaction / Comm: blood transfusion 04/01/[address] estrella's notes last hospital stay Date of Last Stent Placement:: 08/30/2021 Past Psychological History: No Psychological Hx Reported Smoking Status: Former smoker - Past Family History Father Family Medical History: Myocardial Infarction ([place]) Additional Family Medical History / Comment(s): Father at 40 of a [place]. Mother Family Medical History: CVA/TIA Additional Family Medical History / Comment(s): Mother had a CVA Medications and Allergies Home Medications Medication Instructions Recorded Confirmed Type Nitroglycerin Sl Tabs [Nitrostat] 0.4 mg SL Q5M PRN 07/20/15 08/08/22 History Atorvastatin Calcium [Lipitor] 40 mg PO HS #1 tab 08/04/15 08/08/22 Rx Fluticasone/Umeclidin/Vilanter 1 puff INHALATION RT-HS 10/15/21 08/08/22 History [Trelegy Ellipta 100-62.5-25] Apixaban [Eliquis] 2.5 mg PO BID 12/09/21 08/08/22 History Amitriptyline HCl [Elavil] 100 mg PO HS 03/13/22 08/08/22 History Cyanocobalamin (Vitamin B-12) 1,000 mcg PO DAILY 03/13/22 08/08/22 History [Vitamin B-12] Gabapentin 300 mg PO TID #9 cap 04/04/22 08/08/22 Rx Furosemide [Lasix] 40 mg PO DAILY tab 04/13/22 08/08/22 Rx Amiodarone [Cordarone] 200 mg PO DAILY #90 tab 04/14/22 08/08/22 Rx Metoprolol Tartrate [Lopressor] 25 mg PO BID tab 04/14/22 08/08/22 Rx HYDROcodone/APAP 5-325MG [[place] 1 tab PO Q6H PRN 05/21/22 08/08/22 History 5-325] Insulin Lispro [humaLOG Kwikpen] See Protocol SQ ACHS PRN 05/21/22 08/08/22 History Calcium Carbonate [Tums] 1,000 mg PO Q6H PRN 08/08/22 08/08/22 History Docusate [Colace] 100 mg PO BID 08/08/22 08/08/22 History Ipratropium-Albuterol Nebulize 3 ml INHALATION RT-QID 08/08/22 08/08/22 History [Duoneb 0.5 mg-3 mg/3 ml Soln] Levothyroxine Sodium [Synthroid] 75 mcg PO DAILY 08/08/22 08/08/22 History Psyllium Husk 100% [Metamucil 6 gm PO DAILY 08/08/22 08/08/22 History Packet] Tamsulosin [Flomax] 0.4 mg PO DAILY 08/08/22 08/08/22 History metFORMIN HCL 1,000 mg PO BID 08/08/22 08/08/22 History Allergies Allergy/AdvReac Type Severity Reaction Status Date / Time Penicillins Allergy Rash/Hives Verified 08/08/22 17:14 Surgical - Exam Vital Signs Resp BP Pulse Ox 24 118/76 87 L 08/08/22 12:47 08/08/22 12:47 08/08/22 12:47 Results - Labs 08/09/22 10:53 08/09/22 10:53 Abnormal Lab Results - Last 24 Hours (Table) 08/08/22 08/08/22 08/09/22 Range/Units 19:48 23:02 03:27 WBC (3.8-10.6) k/uL RBC (3.80-5.40) m/uL Hgb (11.4-16.0) gm/dL Hct (34.0-46.0) % MCHC (31.0-37.0) g/dL RDW (11.5-15.5) % Sodium (137-145) mmol/L Carbon Dioxide (22-30) mmol/L BUN (7-17) mg/dL Creatinine (0.52-1.04) mg/dL Glucose (74-99) mg/dL POC Glucose (mg/dL) (70-110) mg/dL Plasma Lactic Acid Russel 2.1 H* 3.5 H* 2.6 H* (0.7-2.0) mmol/L Calcium (8.4-10.2) mg/dL Magnesium (1.6-2.3) mg/dL 08/09/22 08/09/22 08/09/22 Range/Units 04:24 08:03 10:53 WBC 19.1 H (3.8-10.6) k/uL RBC 3.01 L (3.80-5.40) m/uL Hgb 8.0 L D (11.4-16.0) gm/dL Hct 26.7 L (34.0-46.0) % MCHC 29.9 L (31.0-37.0) g/dL RDW 15.8 H (11.5-15.5) % Sodium (137-145) mmol/L Carbon Dioxide (22-30) mmol/L BUN (7-17) mg/dL Creatinine (0.52-1.04) mg/dL Glucose (74-99) mg/dL POC Glucose (mg/dL) 143 H (70-110) mg/dL Plasma Lactic Acid Russel 2.5 H* (0.7-2.0) mmol/L Calcium (8.4-10.2) mg/dL Magnesium (1.6-2.3) mg/dL 08/09/22 08/09/22 08/09/22 Range/Units 10:53 10:53 11:51 WBC (3.8-10.6) k/uL RBC (3.80-5.40) m/uL Hgb (11.4-16.0) gm/dL Hct (34.0-46.0) % MCHC (31.0-37.0) g/dL RDW (11.5-15.5) % Sodium 136 L (137-145) mmol/L Carbon Dioxide 17 L (22-30) mmol/L BUN 66 H (7-17) mg/dL Creatinine 2.27 H (0.52-1.04) mg/dL Glucose 145 H (74-99) mg/dL POC Glucose (mg/dL) 185 H (70-110) mg/dL Plasma Lactic Acid Russel 2.3 H* (0.7-2.0) mmol/L Calcium 7.0 L (8.4-10.2) mg/dL Magnesium 2.6 H (1.6-2.3) mg/dL 08/09/22 Range/Units 14:10 WBC (3.8-10.6) k/uL RBC (3.80-5.40) m/uL Hgb (11.4-16.0) gm/dL Hct (34.0-46.0) % MCHC (31.0-37.0) g/dL RDW (11.5-15.5) % Sodium (137-145) mmol/L Carbon Dioxide (22-30) mmol/L BUN (7-17) mg/dL Creatinine (0.52-1.04) mg/dL Glucose (74-99) mg/dL POC Glucose (mg/dL) (70-110) mg/dL Plasma Lactic Acid Russel 2.5 H* (0.7-2.0) mmol/L Calcium (8.4-10.2) mg/dL Magnesium (1.6-2.3) mg/dL Microbiology - Last 24 Hours (Table) 08/08/22 13:00 Blood Culture - Preliminary Blood No Growth after 24 hours 08/08/22 13:10 Urine Culture - Preliminary Urine,Voided Diabetes panel 08/09/22 08/09/22 Range/Units 10:53 10:53 Sodium 136 L (137-145) mmol/L Potassium 4.6 (3.5-5.1) mmol/L Chloride 107 (98-107) mmol/L Carbon Dioxide 17 L (22-30) mmol/L BUN 66 H (7-17) mg/dL Creatinine 2.27 H (0.52-1.04) mg/dL Glucose 145 H (74-99) mg/dL Hemoglobin A1c 6.0 (0.0-6.0) % Calcium 7.0 L (8.4-10.2) mg/dL Calcium panel 08/09/22 Range/Units 10:53 Calcium 7.0 L (8.4-10.2) mg/dL Pituitary panel 08/09/22 Range/Units 10:53 Sodium 136 L (137-145) mmol/L Potassium 4.6 (3.5-5.1) mmol/L Chloride 107 (98-107) mmol/L Carbon Dioxide 17 L (22-30) mmol/L BUN 66 H (7-17) mg/dL Creatinine 2.27 H (0.52-1.04) mg/dL Glucose 145 H (74-99) mg/dL Calcium 7.0 L (8.4-10.2) mg/dL Adrenal panel 08/09/22 Range/Units 10:53 Sodium 136 L (137-145) mmol/L Potassium 4.6 (3.5-5.1) mmol/L Chloride 107 (98-107) mmol/L Carbon Dioxide 17 L (22-30) mmol/L BUN 66 H (7-17) mg/dL Creatinine 2.27 H (0.52-1.04) mg/dL Glucose 145 H (74-99) mg/dL Calcium 7.0 L (8.4-10.2) mg/dL
[2022-08-09 17:57] LABS: Glucose,Whole Blood 196 mg/dL (70-110)
[2022-08-09] MEDS: SYMBICORT 80-4.5 MCG INHALER INHALATION SCH (19:29)
[2022-08-09] MEDS ORDERED: APIXABAN 2.5 MG TABLET PO SCH (21:00)
[2022-08-09] MEDS ORDERED: SODIUM CHLORIDE 0.9% 500 ML 500 ML IV ONE ×2 (21:04→22:34)
[2022-08-09] MEDS ORDERED: SODIUM CHLORIDE 0.9% 1,000 ML IV SCH (21:15)
[2022-08-10 00:17] LABS: Glucose,Whole Blood 142 mg/dL (70-110)
[2022-08-10] MEDS ORDERED: SODIUM CHLORIDE 0.9% 500 ML 500 ML IV ONE ×4 (00:37→19:55)
[2022-08-10] MEDS: INSULIN ASPART (NovoLOG) 100 UNIT/ML VIAL SQ SCH ×4 (00:43→18:00)
[2022-08-10 00:57] LABS: ABG Base Excess -12.1 mmol/L; ABG HCO3 15 mmol/L (21-25); ABG Oxygen Saturation 99.1 % (94-97); ABG PCO2 31 mmHg (35-45); ABG PH 7.28 (7.35-7.45); ABG PO2 136 mmHg (83-108); ABG TCO2 16 mmol/L (19-24); Allen Test Performed? Yes
[2022-08-10 02:33] LABS: Glucose,Whole Blood 141 mg/dL (70-110)
[2022-08-10] MEDS: NOREPINEPHRINE 4 MG in SODIUM CHLORIDE 0.9% 250 ML IV SCH ×9 (02:33→18:04)
[2022-08-10 05:49] LABS: Glucose,Whole Blood 139 mg/dL (70-110)
[2022-08-10 06:14] LABS: HCT 27.5 % (34.0-46.0); HGB 8.2 gm/dL (11.4-16.0); Hypochromasia Marked; MCH 26.7 pg (25.0-35.0); MCHC 29.8 g/dL (31.0-37.0); MCV 89.6 fL (80.0-100.0); Mean Platelet Volume 8.2; Platelet Count 311 k/uL (150-450); RBC 3.07 m/uL (3.80-5.40); RDW 15.7 % (11.5-15.5); WBC 8.7 k/uL (3.8-10.6)
[2022-08-10] MEDS ORDERED: LEVOTHYROXINE 75 MCG TAB PO SCH (06:30)
[2022-08-10 06:56] LABS: Band Neutrophils % 7 %; Calcium 6.9 mg/dL (8.4-10.2); Lymphocytes # (M) 0.78 k/uL (1.0-4.8); Metamyelocytes # (M) 0.26 k/uL (0); Metamyelocytes % 3 %; Monocytes # (M) 0.52 k/uL (0-1.0); Neutrophils % (M) 77 %; Nucleated Red Blood Cells 0 /100 WBC (0-0); Total Cells Counted 200
[2022-08-10 07:06] LABS: Potassium 6.3 mmol/L (3.5-5.1)
[2022-08-10] MEDS ORDERED: FUROSEMIDE 10 MG/ML 10 ML VIAL IV STA (07:19)
[2022-08-10] MEDS ORDERED: DEXTROSE 50% SYRINGE 50 ML IVP STA ×2 (07:21→18:06)
[2022-08-10] MEDS ORDERED: CALCIUM GLUCONATE IN NACL 1 GM in SALINE 1 100ML.BAG IVPB ONE (07:21)
[2022-08-10] MEDS ORDERED: INSULIN REGULAR 100 UNIT/ML VIAL (IV) IV ONE ×2 (07:22→17:49)
[2022-08-10] MEDS ORDERED: SODIUM BICARB 8.4% 50 ML SYR (1 MEQ/ML) IV STA ×2 (07:24→17:49)
[2022-08-10] MEDS: IPRATROPIUM-ALBUTEROL 3 ML NEB INHALATION SCH ×4 (08:00→20:59)
[2022-08-10 08:06] LABS: Glucose,Whole Blood 164 mg/dL (70-110)
[2022-08-10] MEDS: PANTOPRAZOLE 40 MG/10 ML VIAL IVP SCH (08:14)
[2022-08-10] MEDS: DEXTROSE 5% IN WATER 1,000 ML with SODIUM BICARB (1 MEQ/ML) 150 ML IV SCH ×2 (08:15→09:50)
[2022-08-10] MEDS: AMIODARONE 200 MG TAB PO SCH (08:16)
[2022-08-10] MEDS: polyethylene glycoL 3350 17 GM POWD.PACK PO SCH ×2 (08:16→20:16)
[2022-08-10] MEDS: TAMSULOSIN 0.4 MG CAP.ER.24H PO SCH (08:16)
[2022-08-10] MEDS: SYMBICORT 80-4.5 MCG INHALER INHALATION SCH (08:24)
[2022-08-10] MEDS ORDERED: VASOPRESSIN 60 UNIT in SODIUM CHLORIDE 0.9% 150 ML IV SCH (09:00)
[2022-08-10] MEDS ORDERED: LEVOFLOXACIN IVPB SCH (09:00)
[2022-08-10] MEDS ORDERED: DEXTROSE IVPB SCH (09:00)
[2022-08-10] MEDS ORDERED: WATER IVPB SCH (09:00)
[2022-08-10] MEDS ORDERED: PMX IVPB SCH (09:00)
--- NOTE | 2022-08-10 09:18 | XR ---
EXAMINATION TYPE: XR chest 1V portable DATE OF EXAM: 08/10/2022 COMPARISON: 08/09/2022 HISTORY: NG tube placement TECHNIQUE: Single frontal view of the chest is obtained. FINDINGS: NG tube seen coursing in the upper abdomen. Bilateral infiltrate and small effusion. Heart is mildly enlarged. No pneumothorax or interstitial edema. Postsurgical plate overlying the cervical spine. IMPRESSION: Stable bilateral lower lobe infiltrate and small effusion
--- NOTE | 2022-08-10 10:16 | P.NPCON ---
History of Present Illness - Reason for Consult acute renal failure - History of Present Illness Reason for consultation: Acute kidney injury History of present illness: Patient is a 87-year-old female seen in consultation for acute kidney injury. Patient's creatinine in June 2022 was as low as 0.84. This admission and was elevated at 1.5 and is up at 2.68 today. Patient presented to the hospital on 08/08/2022 due to shortness of breath. Patient had a syncopal episode while she was on the toilet. Patient was brought to the hospital by the EMS. Patient was transferred to the ICU early this morning due to hypotension. Patient has received 4.5 L of normal saline bolus in the last 24 hours. She was switched over to bicarb drip this morning due to severe acidosis. Potassium was 6.3 as morning which was medically treated. Patient is currently on Levophed as well as vasopressin. Despite receiving IV Lasix patient's urine output remains low. Patient has history of diabetes. She was taking metformin outpatient which is currently held. I don't see any nonsteroidals in her home medication list. Case discussed with the daughter was present at bedside. Vital signs are stable. On vasopressor support. General: Resting in bed. HEENT: Head exam is unremarkable. Wearing O2 mask. LUNGS: Breath sounds decreased. HEART: Tachycardic. ABDOMEN: Soft, obese. EXTREMITITES: No edema. Past Medical History Past Medical History: Coronary Artery Disease (CAD), Chest Pain / Angina, Heart Failure, COPD, CVA/TIA, Diabetes Mellitus, Hyperlipidemia, Hypertension, Myocardial Infarction ([place]), Osteoarthritis (OA), Renal Disease, Sleep Apnea/CPAP/BIPAP, Thyroid Disorder Additional Past Medical History / Comment(s): Pt recently admitted to [facility] on 05/21/22/ gravely disabled, UTI, acquired hypothyroidism, exacerbation copd and chf, anemia. Other hx: IDDM type II, neuropathy bilateral hands/feet, CKD stage III, urinary retention, UTIs, anemia, home oxygen use ATC, bilateral lower extremity edema, current pressure ulcer decub per pt, gastritis, hiatal hernia, aortic stenosis, hemorrhoids. Last Myocardial Infarction Date:: 06/18/17 History of Any Multi-Drug Resistant Organisms: None Reported, ESBL Date of last positivie culture/infection: 09/06/17 MDRO Source:: ESBL URINE Past Surgical History: Back Surgery, Heart Catheterization, Heart Catheterization With Stent, Joint Replacement, Orthopedic Surgery Additional Past Surgical History / Comment(s): Lumbar laminectomy decompression fusion L3-4 and L5-S1 with cell saver, lumbar instrumentation removal L4-5, L4- L5 laminectomy, BILATERAL KNEE REPLACEMENTS, ORIF RIGHT ANKLE, CERVICAL FUSION, bilateral rotator cuff repair, bilateral wrist carpal tunnel releases, pain procedures, left breast lumpectomy-benign, bilateral varicose vein stripping, bilateral cataracts, heart cath with 5 stents august 2021, egd/colonoscopy 04/13/22 Past Anesthesia/Blood Transfusion Reactions: No Reported Reaction Additional Past Anesthesia/Blood Transfusion Reaction / Comment(s): blood t ransfusion 04/01/[address] estrella's notes last hospital stay Date of Last Stent Placement:: 08/30/2021 Past Psychological History: No Psychological Hx Reported Additional Psychological History / Comment(s): Pt resides with her spouse. She has home care thru [facility]. She states she is now wheelchair bound. She has home oxygen. She receives some services thru [facility]. Smoking Status: Former smoker Past Alcohol Use History: None Reported Additional Past Alcohol Use History / Comment(s): Pt started smoking in 7 and quit in 1974. She was a 1.5 ppd smoker. Past Drug Use History: None Reported - Past Family History Father Family Medical History: Myocardial Infarction ([place]) Additional Family Medical History / Comment(s): Father at 40 of a [place]. Mother Family Medical History: CVA/TIA Additional Family Medical History / Comment(s): Mother had a CVA Medications and Allergies Home Medications Medication Instructions Recorded Confirmed Type Nitroglycerin Sl Tabs [Nitrostat] 0.4 mg SL Q5M PRN 07/20/15 08/08/22 History Atorvastatin Calcium [Lipitor] 40 mg PO HS #1 tab 08/04/15 08/08/22 Rx Fluticasone/Umeclidin/Vilanter 1 puff INHALATION RT-HS 10/15/21 08/08/22 History [Trelegy Ellipta 100-62.5-25] Apixaban [Eliquis] 2.5 mg PO BID 12/09/21 08/08/22 History Amitriptyline HCl [Elavil] 100 mg PO HS 03/13/22 08/08/22 History Cyanocobalamin (Vitamin B-12) 1,000 mcg PO DAILY 03/13/22 08/08/22 History [Vitamin B-12] Gabapentin 300 mg PO TID #9 cap 04/04/22 08/08/22 Rx Furosemide [Lasix] 40 mg PO DAILY tab 04/13/22 08/08/22 Rx Amiodarone [Cordarone] 200 mg PO DAILY #90 tab 04/14/22 08/08/22 Rx Metoprolol Tartrate [Lopressor] 25 mg PO BID tab 04/14/22 08/08/22 Rx HYDROcodone/APAP 5-325MG [[place] 1 tab PO Q6H PRN 05/21/22 08/08/22 History 5-325] Insulin Lispro [humaLOG Kwikpen] See Protocol SQ ACHS PRN 05/21/22 08/08/22 History Calcium Carbonate [Tums] 1,000 mg PO Q6H PRN 08/08/22 08/08/22 History Docusate [Colace] 100 mg PO BID 08/08/22 08/08/22 History Ipratropium-Albuterol Nebulize 3 ml INHALATION RT-QID 08/08/22 08/08/22 History [Duoneb 0.5 mg-3 mg/3 ml Soln] Levothyroxine Sodium [Synthroid] 75 mcg PO DAILY 08/08/22 08/08/22 History Psyllium Husk 100% [Metamucil 6 gm PO DAILY 08/08/22 08/08/22 History Packet] Tamsulosin [Flomax] 0.4 mg PO DAILY 08/08/22 08/08/22 History metFORMIN HCL 1,000 mg PO BID 08/08/22 08/08/22 History Allergies Allergy/AdvReac Type Severity Reaction Status Date / Time Penicillins Allergy Rash/Hives Verified 08/08/22 17:14 Physical Exam Vitals: Vital Signs Temp Pulse Pulse Resp BP BP BP 08/10/22 09:00 100 18 90/37 08/10/22 08:45 100 13 79/47 08/10/22 08:30 115 H 21 104/37 08/10/22 08:15 89 13 101/52 08/10/22 08:13 95 08/10/22 08:03 95 08/10/22 08:00 98.9 F 108 H 16 95/54 08/10/22 07:59 08/10/22 07:45 89 22 97/41 08/10/22 07:30 85 25 H 113/46 08/10/22 07:15 87 20 113/54 08/10/22 07:00 85 21 113/54 08/10/22 06:45 87 24 118/60 08/10/22 06:30 82 22 109/40 08/10/22 06:15 87 20 101/36 08/10/22 06:10 84 19 88/31 08/10/22 06:00 86 17 94/62 08/10/22 05:50 84 17 92/39 08/10/22 05:40 80 22 104/29 08/10/22 05:30 85 23 110/33 08/10/22 05:20 86 20 107/60 08/10/22 05:10 85 29 H 92/31 08/10/22 05:00 84 17 92/31 08/10/22 04:50 82 25 H 107/36 08/10/22 04:40 83 19 102/30 08/10/22 04:30 82 9 L 89/64 08/10/22 04:20 82 9 L 99/74 08/10/22 04:10 84 18 88/47 08/10/22 04:00 99.0 F 86 17 81/35 08/10/22 03:51 08/10/22 03:50 81 17 91/36 08/10/22 03:40 87 22 96/30 08/10/22 03:30 82 13 84/61 08/10/22 03:20 83 18 100/67 08/10/22 03:10 81 24 93/62 08/10/22 03:00 84 17 87/49 08/10/22 02:50 82 11 L 55/30 08/10/22 02:40 81 15 55/30 08/10/22 02:30 80 18 85/31 08/10/22 02:20 82 24 73/26 08/10/22 02:10 82 19 169/154 08/10/22 02:00 81 5 L 62/42 08/10/22 01:50 80 23 62/42 08/10/22 01:40 83 23 77/24 08/10/22 01:34 89 16 02/09/23 01:03 08/10/22 01:00 76/42 08/10/22 00:34 108/62 08/10/22 00:00 99.7 F H 91 22 74/40 72/46 08/09/22 22:40 84 22 85/45 08/09/22 21:40 86 22 78/41 08/09/22 20:48 08/09/22 20:45 98.6 F 93 18 76/34 08/09/22 20:44 08/09/22 20:30 64 18 81/45 08/09/22 20:15 56 L 16 68/41 08/09/22 19:44 88 08/09/22 19:30 88 08/09/22 16:35 98.1 F 75 20 108/78 08/09/22 15:50 79/54 08/09/22 15:45 86 08/09/22 15:40 81 15 77/52 08/09/22 15:39 86 08/09/22 15:30 76 6 L 93/39 08/09/22 15:20 82 9 L 79/47 08/09/22 15:19 79 11 L 79/47 08/09/22 15:00 79 29 H 85/36 08/09/22 14:00 76 21 73/42 08/09/22 13:00 80 14 93/61 08/09/22 12:12 78 08/09/22 12:00 79 17 81/41 08/09/22 11:52 78 08/09/22 11:00 75 14 94/50 Pulse Ox FiO2 08/10/22 09:00 94 L 08/10/22 08:45 92 L 08/10/22 08:30 96 08/10/22 08:15 96 08/10/22 08:13 08/10/22 08:03 08/10/22 08:00 94 L 08/10/22 07:59 50 08/10/22 07:45 95 08/10/22 07:30 95 08/10/22 07:15 94 L 08/10/22 07:00 95 08/10/22 06:45 93 L 08/10/22 06:30 93 L 08/10/22 06:15 94 L 08/10/22 06:10 93 L 08/10/22 06:00 94 L 08/10/22 05:50 94 L 08/10/22 05:40 94 L 08/10/22 05:30 94 L 08/10/22 05:20 94 L 08/10/22 05:10 94 L 08/10/22 05:00 94 L 08/10/22 04:50 94 L 08/10/22 04:40 94 L 08/10/22 04:30 94 L 08/10/22 04:20 93 L 08/10/22 04:10 95 08/10/22 04:00 94 L 50 08/10/22 03:51 50 08/10/22 03:50 96 08/10/22 03:40 96 08/10/22 03:30 96 08/10/22 03:20 96 08/10/22 03:10 95 08/10/22 03:00 94 L 50 08/10/22 02:50 92 L 08/10/22 02:40 93 L 08/10/22 02:30 94 L 08/10/22 02:20 94 L 08/10/22 02:10 92 L 08/10/22 02:00 93 L 08/10/22 01:50 93 L 08/10/22 01:40 08/10/22 01:34 08/10/22 01:03 50 08/10/22 01:00 08/10/22 00:34 08/10/22 00:00 93 L 28 08/09/22 22:40 92 L 28 08/09/22 21:40 93 L 28 08/09/22 20:48 94 L 28 08/09/22 20:45 94 L 28 08/09/22 20:44 78 L 08/09/22 20:30 88 L 08/09/22 20:15 84 L 08/09/22 19:44 08/09/22 19:30 96 08/09/22 16:35 96 08/09/22 15:50 08/09/22 15:45 08/09/22 15:40 91 L 08/09/22 15:39 08/09/22 15:30 93 L 08/09/22 15:20 94 L 08/09/22 15:19 93 L 08/09/22 15:00 94 L 08/09/22 14:00 95 08/09/22 13:00 94 L 08/09/22 12:12 08/09/22 12:00 95 08/09/22 11:52 08/09/22 11:00 94 L Intake and Output 08/09/22 08/10/22 08/10/22 22:59 06:59 14:59 Intake Total 10 463.702 529.017 Output Total 575 455 25 Balance -565 8.702 504.017 Intake: IV 10 300 425 Calcium Gluconate in NaCl 100 1 gm In Saline 1 100ml. bag @ 100 mls/hr IVPB ONCE ONE Rx#:[id number] Dextrose 5% in Water 1, 150 000 ml @ 75 mls/hr IV . [id number] [facility] with Sodium Bicarb (1 Meq/ml) 150 ml Rx#:[id number] Invasive Line 1 10 Levofloxacin 500Mg-D5w 100 Pmx 500 mg In Dextrose/ Water 100 100ml.bag @ 100 mls/hr IVPB Q48H [facility] Rx# :[id number] Sodium Chloride 0.9% 1, 300 75 000 ml @ 75 mls/hr IV . [id number] [facility] Rx#:[id number] Intake, IV Titration 163.702 104.017 Amount Norepinephrine 4 mg In 163.702 104.017 Sodium Chloride 0.9% 250 ml @ 0.03 MCG/KG/MIN 11. 665 mls/hr IV .[id number] [facility] Rx#:[id number] Output: Gastric Drainage 400 400 Urine 175 55 25 Other: Voiding Method Indwelling Catheter Indwelling Catheter Weight 102.058 kg 109 kg Results - Lab Results Most recent lab results ABG pH 7.28 (7.35-7.45) L 08/10/22 00:55 ABG pCO2 31 mmHg (35-45) L 08/10/22 00:55 ABG pO2 136 mmHg (83-108) H 08/10/22 00:55 ABG HCO3 15 mmol/L (21-25) L 08/10/22 00:55 ABG O2 Saturation 99.1 % (94-97) H 08/10/22 00:55 Calcium 6.9 mg/dL (8.4-10.2) L 08/10/22 05:50 Magnesium 2.6 mg/dL (1.6-2.3) H 08/09/22 10:53 08/10/22 05:50 08/10/22 05:50 Assessment and Plan Plan: Assessment: 1. Acute kidney injury secondary to ATN secondary to septic shock. Baseline creatinine near 0.8 from June 2022 and up to 2.68 today. Oliguric. 2. Septic shock secondary to UTI and bacteremia. On antibiotics and vasopressor support. 3. Metabolic acidosis secondary to acute kidney injury and IV fluids. 4. Hyperkalemia secondary to acute kidney injury and metabolic acidosis. 5. Acute hypoxic respiratory failure. Plan: Increase rate of bicarbonate drip 200 mL an hour. Hyperkalemia was medically treated with IV calcium, IV insulin with D50 as well as sodium bicarb IV push this morning. Status post IV Lasix this morning. Follow-up repeat potassium level. Discussed with daughter present at bedside the potential need to start renal replacement therapy if no improvement in her renal function and potassium level. It was discussed in detail the patient is hemodynamically quite unstable and may not be able to tolerate dialysis. Daughter states she will discuss with other family members and will let us know their decision. Wean FiO2 and vasopressors. Thank you for the consultation. I will continue to follow the patient with you during her hospital stay.
--- NOTE | 2022-08-10 11:12 | P.PN ---
Subjective Progress Note Date: 08/10/22 H&P Date: 08/09/22 Chief Complaint: Shortness of breath,Altered mental statConstipation, syncope, hyperglycemia This is a pleasant 87-year-old female with past medical history of CAD, NE, stent placement, aortic stenosis ,chronic hypoxic respiratory failure,on 2 L nasal cannula ,Covid 06/22,COPD, former nicotine dependence, obstructive sleep apnea ,CVA/TIA, diabetes mellitus, hypertension, hyperlipidemia, hypothyroidism, recurrent UTIs,CKD III, urinary retention, anemia, bilateral peripheral neuropathy, gait dysfunction,utilizing walker, falls, morbid obesity-BMI 39.9 and multiple other medical issues brought in via ambulance, on BiPAP to the ER for change in level of consciousness, syncope, nausea, vomiting, hyperglycemia, constipation-on [place], shortness of breath, recently discharged from [facility] subacute rehab on 08/06/2022. Information being obtained from chart and daughter at bedside. Daughter reports they are unsure of her last bowel movement, possibly , 08/03. [facility] documented large bowel movement on 08/04 and 08/05. Reports yesterday blood sugars were running high in the 400s, patient developed nausea and vomiting, change in sensorium, passed out while on the toilet. Reports patient "coughs all the time, but has COPD", no knowledge of fevers, denies chills. Denies chest pain, palpitations, positive shortness of breath. Developed hypotension in the ER in addition to emesis, received fluid bolus .Chest x-ray reported right basilar infiltrate with persistent small right effusion, no overt failure. EKG reported sinus rhythm, troponin negative 1. KUB reported marked gastric distention, additional small bowel loops dilated, possibly retained debris within the rectum and sigmoid colon. 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 NG tube placed in the ER with 1200 MLS bilious output reported overnight. D-dimer elevated 4.73, CT angio chest reported no evidence of pulmonary embolism,more consolidation changes in the right lung base, rule out aspiration. ProBNP 426. UA reported many WBC clumps, 165 WBCs, large leukocytes, negative nitrates, culture pending. Afebrile, on admission temperature 96.7, currently 98.8. WBC 14.3. lactic acid 3.5, repeat level pending. Hemoglobin 10.2, platelets 4:15, a I's within normal limits, BUN 40, creatinine 1.5. BiPAP weaned off, currently requiring 6 L nasal cannula O2 to maintain O2 sats in the low 90s. 08/10/22 Continued to decline throughout the night requiring ICU admission, maintained on vasopressin, Levophed and bicarb drips. Received fluid boluses throughout the night. Lactic acid decreased to 2.1. Low urine output on Lasix IV push. BUN 81, creatinine 2.68. Hyperkalemic, received calcium, insulin, D50, sodium bicarbonate. Chest x-ray reporting stable bilateral lower lobe infiltrate and small effusion. Afebrile, T-max 99.7. Continues on Levaquin, WBC normalized today. Cefepime added to antibiotic regimen today. Preliminary Urine cultures reporting group D enterococcus 50-100,000 colonies and gram-negative bacilli 10 and 49,000 colonies. 07/03 Blood cultures reporting GNB. Hemoglobin 8.2, platelets 311. Objective - Vital Signs Vital signs: Vital Signs Temp 98.9 F 08/10/22 08:00 Pulse 100 08/10/22 09:00 Resp 18 08/10/22 09:00 BP 90/37 08/10/22 09:00 Pulse Ox 94 L 08/10/22 09:00 FiO2 50 08/10/22 07:59 Intake & Output 08/09/22 08/10/22 08/10/22 18:59 06:59 18:59 Intake Total 473.702 912.926 Output Total 575 455 55 Balance -575 18.702 857.926 Weight 102.058 kg 109 kg Intake: IV 310 585 Calcium Gluconate in NaCl 100 1 gm In Saline 1 100ml. bag @ 100 mls/hr IVPB ONCE ONE Rx#:[id number] Dextrose 5% in Water 1, 250 000 ml @ 100 mls/hr IV . [id number] LEIGH ANN with Sodium Bicarb (1 Meq/ml) 150 ml Rx#:[id number] Invasive Line 1 10 10 Invasive Line 3 50 Levofloxacin 500Mg-D5w 100 Pmx 500 mg In Dextrose/ Water 100 100ml.bag @ 100 mls/hr IVPB Q48H LEIGH ANN Rx# :[id number] Sodium Chloride 0.9% 1, 300 75 000 ml @ 75 mls/hr IV . [id number] LEIGH ANN Rx#:[id number] Intake, IV Titration 163.702 327.926 Amount Norepinephrine 4 mg In 163.702 327.926 Sodium Chloride 0.9% 250 ml @ 0.03 MCG/KG/MIN 11. 665 mls/hr IV .[id number] LEIGH ANN Rx#:[id number] Output: Gastric Drainage 400 400 Urine 175 55 55 Other: Voiding Method Indwelling Catheter - Exam GENERAL EXAM: Arousable, alert and oriented to person, sometimes place. HEAD: Normocephalic. EYES: Normal reaction of pupils, equal size. NOSE: Clear with pink turbinates. NG tube present. THROAT: No erythema or exudates. NECK: No masses, no JVD. CHEST: No chest wall deformity. LUNGS: Equal air entry with bilateral bases diminished, fine crackles in bilateral bases. CVS: S1 and S2 normal with no audible murmur, regular rhythm. ABDOMEN: Soft, distended, diffuse tenderness, No hepatosplenomegaly, hypoactive bowel sounds, no guarding or rigidity. SKIN: No rashes, bilateral forearm skin tears with dressings clean dry and intact,chronic sacral /buttock pressure ulcer-stage II. CENTRAL NERVOUS SYSTEM: No focal deficits, tone is normal in all 4 extremities. EXTREMITIES: There is 1+ peripheral edema. No clubbing, no cyanosis. Peripheral pulses are intact. - Labs CBC & Chem 7: 08/10/22 05:50 08/10/22 11:30 Labs: Abnormal Lab Results - Last 24 Hours (Table) 08/09/22 08/09/22 08/09/22 Range/Units 10:53 10:53 10:53 WBC 19.1 H (3.8-10.6) k/uL RBC 3.01 L (3.80-5.40) m/uL Hgb 8.0 L D (11.4-16.0) gm/dL Hct 26.7 L (34.0-46.0) % MCHC 29.9 L (31.0-37.0) g/dL RDW 15.8 H (11.5-15.5) % Lymphocytes # (Manual) (1.0-4.8) k/uL Metamyelocytes # (Man) (0) k/uL ABG pH (7.35-7.45) ABG pCO2 (35-45) mmHg ABG pO2 (83-108) mmHg ABG HCO3 (21-25) mmol/L ABG Total CO2 (19-24) mmol/L ABG O2 Saturation (94-97) % Sodium 136 L (137-145) mmol/L Potassium (3.5-5.1) mmol/L Chloride (98-107) mmol/L Carbon Dioxide 17 L (22-30) mmol/L BUN 66 H (7-17) mg/dL Creatinine 2.27 H (0.52-1.04) mg/dL Glucose 145 H (74-99) mg/dL POC Glucose (mg/dL) (70-110) mg/dL Plasma Lactic Acid Russel (0.7-2.0) mmol/L Calcium 7.0 L (8.4-10.2) mg/dL Magnesium 2.6 H (1.6-2.3) mg/dL Procalcitonin 11.00 H (0.02-0.09) ng/mL 08/09/22 08/09/22 08/09/22 Range/Units 10:53 11:51 14:10 WBC (3.8-10.6) k/uL RBC (3.80-5.40) m/uL Hgb (11.4-16.0) gm/dL Hct (34.0-46.0) % MCHC (31.0-37.0) g/dL RDW (11.5-15.5) % Lymphocytes # (Manual) (1.0-4.8) k/uL Metamyelocytes # (Man) (0) k/uL ABG pH (7.35-7.45) ABG pCO2 (35-45) mmHg ABG pO2 (83-108) mmHg ABG HCO3 (21-25) mmol/L ABG Total CO2 (19-24) mmol/L ABG O2 Saturation (94-97) % Sodium (137-145) mmol/L Potassium (3.5-5.1) mmol/L Chloride (98-107) mmol/L Carbon Dioxide (22-30) mmol/L BUN (7-17) mg/dL Creatinine (0.52-1.04) mg/dL Glucose (74-99) mg/dL POC Glucose (mg/dL) 185 H (70-110) mg/dL Plasma Lactic Acid Russel 2.3 H* 2.5 H* (0.7-2.0) mmol/L Calcium (8.4-10.2) mg/dL Magnesium (1.6-2.3) mg/dL Procalcitonin (0.02-0.09) ng/mL 08/09/22 08/09/22 08/09/22 Range/Units 17:39 17:56 21:53 WBC (3.8-10.6) k/uL RBC (3.80-5.40) m/uL Hgb (11.4-16.0) gm/dL Hct (34.0-46.0) % MCHC (31.0-37.0) g/dL RDW (11.5-15.5) % Lymphocytes # (Manual) (1.0-4.8) k/uL Metamyelocytes # (Man) (0) k/uL ABG pH (7.35-7.45) ABG pCO2 (35-45) mmHg ABG pO2 (83-108) mmHg ABG HCO3 (21-25) mmol/L ABG Total CO2 (19-24) mmol/L ABG O2 Saturation (94-97) % Sodium (137-145) mmol/L Potassium (3.5-5.1) mmol/L Chloride (98-107) mmol/L Carbon Dioxide (22-30) mmol/L BUN (7-17) mg/dL Creatinine (0.52-1.04) mg/dL Glucose (74-99) mg/dL POC Glucose (mg/dL) 196 H (70-110) mg/dL Plasma Lactic Acid Russel 2.6 H* 2.9 H* (0.7-2.0) mmol/L Calcium (8.4-10.2) mg/dL Magnesium (1.6-2.3) mg/dL Procalcitonin (0.02-0.09) ng/mL 08/10/22 08/10/22 08/10/22 Range/Units 00:15 00:55 01:10 WBC (3.8-10.6) k/uL RBC (3.80-5.40) m/uL Hgb (11.4-16.0) gm/dL Hct (34.0-46.0) % MCHC (31.0-37.0) g/dL RDW (11.5-15.5) % Lymphocytes # (Manual) (1.0-4.8) k/uL Metamyelocytes # (Man) (0) k/uL ABG pH 7.28 L (7.35-7.45) ABG pCO2 31 L (35-45) mmHg ABG pO2 136 H (83-108) mmHg ABG HCO3 15 L (21-25) mmol/L ABG Total CO2 16 L (19-24) mmol/L ABG O2 Saturation 99.1 H (94-97) % Sodium (137-145) mmol/L Potassium (3.5-5.1) mmol/L Chloride (98-107) mmol/L Carbon Dioxide (22-30) mmol/L BUN (7-17) mg/dL Creatinine (0.52-1.04) mg/dL Glucose (74-99) mg/dL POC Glucose (mg/dL) 142 H (70-110) mg/dL Plasma Lactic Acid Russel 3.2 H* (0.7-2.0) mmol/L Calcium (8.4-10.2) mg/dL Magnesium (1.6-2.3) mg/dL Procalcitonin (0.02-0.09) ng/mL 08/10/22 08/10/22 08/10/22 Range/Units 02:31 05:47 05:50 WBC (3.8-10.6) k/uL RBC 3.07 L (3.80-5.40) m/uL Hgb 8.2 L (11.4-16.0) gm/dL Hct 27.5 L (34.0-46.0) % MCHC 29.8 L (31.0-37.0) g/dL RDW 15.7 H (11.5-15.5) % Lymphocytes # (Manual) 0.78 L (1.0-4.8) k/uL Metamyelocytes # (Man) 0.26 H (0) k/uL ABG pH (7.35-7.45) ABG pCO2 (35-45) mmHg ABG pO2 (83-108) mmHg ABG HCO3 (21-25) mmol/L ABG Total CO2 (19-24) mmol/L ABG O2 Saturation (94-97) % Sodium (137-145) mmol/L Potassium (3.5-5.1) mmol/L Chloride (98-107) mmol/L Carbon Dioxide (22-30) mmol/L BUN (7-17) mg/dL Creatinine (0.52-1.04) mg/dL Glucose (74-99) mg/dL POC Glucose (mg/dL) 141 H 139 H (70-110) mg/dL Plasma Lactic Acid Russel (0.7-2.0) mmol/L Calcium (8.4-10.2) mg/dL Magnesium (1.6-2.3) mg/dL Procalcitonin (0.02-0.09) ng/mL 08/10/22 08/10/22 08/10/22 Range/Units 05:50 05:50 05:50 WBC (3.8-10.6) k/uL RBC (3.80-5.40) m/uL Hgb (11.4-16.0) gm/dL Hct (34.0-46.0) % MCHC (31.0-37.0) g/dL RDW (11.5-15.5) % Lymphocytes # (Manual) (1.0-4.8) k/uL Metamyelocytes # (Man) (0) k/uL ABG pH (7.35-7.45) ABG pCO2 (35-45) mmHg ABG pO2 (83-108) mmHg ABG HCO3 (21-25) mmol/L ABG Total CO2 (19-24) mmol/L ABG O2 Saturation (94-97) % Sodium 134 L (137-145) mmol/L Potassium 6.3 H* (3.5-5.1) mmol/L Chloride 110 H (98-107) mmol/L Carbon Dioxide 13 L (22-30) mmol/L BUN 81 H (7-17) mg/dL Creatinine 2.68 H (0.52-1.04) mg/dL Glucose 134 H (74-99) mg/dL POC Glucose (mg/dL) (70-110) mg/dL Plasma Lactic Acid Russel 2.1 H* (0.7-2.0) mmol/L Calcium 6.9 L (8.4-10.2) mg/dL Magnesium 3.0 H (1.6-2.3) mg/dL Procalcitonin (0.02-0.09) ng/mL 08/10/22 Range/Units 08:05 WBC (3.8-10.6) k/uL RBC (3.80-5.40) m/uL Hgb (11.4-16.0) gm/dL Hct (34.0-46.0) % MCHC (31.0-37.0) g/dL RDW (11.5-15.5) % Lymphocytes # (Manual) (1.0-4.8) k/uL Metamyelocytes # (Man) (0) k/uL ABG pH (7.35-7.45) ABG pCO2 (35-45) mmHg ABG pO2 (83-108) mmHg ABG HCO3 (21-25) mmol/L ABG Total CO2 (19-24) mmol/L ABG O2 Saturation (94-97) % Sodium (137-145) mmol/L Potassium (3.5-5.1) mmol/L Chloride (98-107) mmol/L Carbon Dioxide (22-30) mmol/L BUN (7-17) mg/dL Creatinine (0.52-1.04) mg/dL Glucose (74-99) mg/dL POC Glucose (mg/dL) 164 H (70-110) mg/dL Plasma Lactic Acid Russel (0.7-2.0) mmol/L Calcium (8.4-10.2) mg/dL Magnesium (1.6-2.3) mg/dL Procalcitonin (0.02-0.09) ng/mL Microbiology - Last 24 Hours (Table) 08/08/22 13:30 Blood Culture - Final Blood 08/08/22 13:10 Urine Culture - Preliminary Urine,Voided Group D Enterococcus Gram Neg Bacilli 08/08/22 13:00 Blood Culture - Preliminary Blood No Growth after 24 hours Assessment and Plan Assessment: Sepsis secondary to acute UTI, cultures reporting group D enterococcus and gram- negative bacilli in a patient with history of urinary retention, recurrent UTIs, most recently with Klebsiella pneumoniae and enterococcus cloacae, cultures finalizing. Septic shock secondary to acute UTI with possible acute bacteremia, one of two blood cultures reporting GNB, possibly contaminant. Hypotension secondary to the above, pressor dependent Acute on chronic hypoxic respiratory failure, wears 2 L nasal cannula O2 ATC at home, related to possible acute chronic CHF exacerbation, diastolic dysfunction , repeat chest x-ray reporting stable bilateral lower lobe infiltrate and small effusion, BiPAP dependent Acute on CKD III, secondary to ATN related to the above Hyperkalemia secondary to the above Metabolic acidosis, on bicarb drip Acute metabolic encephalopathy secondary to the above Abdominal pain, constipation, possible ileus, last bowel movement reported 08/05. Syncope, possibly vasovagal, multifactorial, secondary to all the above Acute metabolic encephalopathy, altered mental status, secondary to all the above Lactic acidosis Leukocytosis, currently normalized Diabetes mellitus, family reports hyperglycemic at home, controlled IP, A1c 6. Recent COVID-19 infection, 06/22 COPD Chronic atrial fibrillation, anticoagulated with Eliquis-on hold Valvular heart disease, moderate aortic stenosis, preserved LV function Chronic anemia Generalized weakness, gait dysfunction, multiple falls recently reported, recently discharged from [facility] subacute rehab. 08/06/22. History of CVA, TIA History of Hypertension Hyperlipidemia Hypothyroidism Morbid obesity, BMI 39.9 Plan: Continue on current medication regime ,monitoring and symptomatic treatment. Daughter has been asked to bring in advanced directives. Nephrology discussing potential renal replacement therapy. ICU management as per fulfillment mail clerk. Antibiotics as per infectious disease. Prognosis guarded given multiple complex medical issues. The impression and plan of care has been dictated as directed. : I performed a history and examination of this patient, discussed the same with the dictator. I agree with the dictator's note ,documented as a scribe. Any additional findings or plans will be noted.
[2022-08-10 11:39] LABS: ABG HCO3 19 mmol/L (21-25); ABG Oxygen Saturation 99.9 % (94-97); ABG PCO2 48 mmHg (35-45); ABG PO2 295 mmHg (83-108); ABG TCO2 21 mmol/L (19-24)
[2022-08-10 11:40] LABS: Allen Test Performed? NO
--- NOTE | 2022-08-10 11:48 | XR ---
EXAMINATION TYPE: XR chest 1V confirm line plcmt DATE OF EXAM: 08/10/2022 11:39 AM COMPARISON: Chest radiographs from same day TECHNIQUE: XR chest 1V confirm line plcmt Portable AP radiograph of the chest. CLINICAL INDICATION:Female, 87 years old with history of line placement; FINDINGS: Lungs/Pleura: Bibasilar atelectasis. No evidence for pneumothorax, pleural effusion or focal consolid ation. Pulmonary vascularity: Unremarkable. Heart/mediastinum: Cardiomediastinal silhouette is unremarkable. Musculoskeletal: No acute osseous pathology. Lines/Tubes: Nasogastric tube with its distal tip and side-port projecting under the diaphragm. Left-sided PICC with distal tip at the superior vena cava. IMPRESSION: Left-sided PICC with distal tip at the superior vena cava.
--- NOTE | 2022-08-10 11:51 | CONS ---
CONSULTATION HISTORY OF PRESENT ILLNESS: Concepcion Newberry is an 87-year-old lady with a history of type 2 diabetes, hypertension, hyperlipidemia, paroxysmal atrial fibrillation, and CAD with recent multivessel PCI performed by Dr. Case in September 2021. He performed PCI of a heavily calcified mid LAD and also first obtuse marginal branch of circumflex. This lady has history of hypertension, hyperlipidemia, type 2 diabetes and presented with a [id number] IA at that time. However, she is in and out of atrial fibrillation, but when she came into the hospital this time, she was in a sinus rhythm, but now, she is in atrial fibrillation. She came into the hospital after being recently discharged from here to [facility]. She developed a syncopal episode or a near-syncopal episode, and they thought it could have been to a low blood sugar; but however, after bringing her here, she was extremely weak, hypoxic, placed on a BiPAP, and CT angiogram ruled out pulmonary embolism, but there was evidence of what seems to be a pneumonia, and also, she has bacteremia with gram-negative rods. I am asked to see her because of atrial fibrillation. Her atrial fibrillation rate is fairly well controlled. She has hyperkalemia, which is now being addressed with dextrose and insulin. She is on a BiPAP and having difficulty with oxygenation. She also has some acidosis as well. Overall prognosis seems poor. Antibiotics have already been initiated. The patient's white count is normal. She has chronic kidney disease, and her creatinine usually runs in the range of 1.5 to 1.6, but it is 2.68 today. She has received some IV Lasix as well. The patient at the time of my evaluation is on BiPAP and very difficult to obtain any history. PAST MEDICAL HISTORY: 1. Diabetes with chronic kidney disease. 2. Hypertension. 3. Hyperlipidemia. 4. CAD with multivessel PCI, calcified coronary artery disease. 5. Paroxysmal atrial fibrillation, on Eliquis. HOME MEDICATIONS: Include: 1. Metformin. 2. Metoprolol tartrate. She takes: 1. Insulin. 2. Gabapentin. 3. Lasix. 4. Atorvastatin. 5. Eliquis 5 mg b.i.d. 6. Amiodarone. It is unclear if she takes Plavix or not. It is not listed in the system. PHYSICAL EXAMINATION: VITAL SIGNS: Blood pressure is 108/60, pulse rate is 90 and irregular. HEENT: Limited exam was unremarkable. HEART: Reveals S1 and S2 with irregularity in rhythm. Short systolic murmur. LUNGS: Reveal bilateral diminished air entry. ABDOMEN: Soft. EXTREMITIES: Lower extremities reveal diminished pulses. CENTRAL NERVOUS SYSTEM: Assessment was not performed. IMPRESSION: 1. Urosepsis with gram-negative Enterococcus in the urine. Blood culture final results are pending. 2. Coronary artery disease with prior multivessel percutaneous coronary intervention. No evidence of acute ischemia at this time. 3. Paroxysmal atrial fibrillation. Was in sinus. Now in atrial fibrillation. 4. Chronic kidney disease, [id number], with some acute renal injury as well. 5. Hypertension. 6. Hyperlipidemia. RECOMMENDATIONS: From a cardiac standpoint, at this time, because of the patient's inability to properly swallow and being on BiPAP, her Eliquis is being held. This is a risk for embolic stroke, but apparently, once her swallowing is possible, we can resume it, or we will place her on heparin. Rest of the management including addressing her sepsis and pulmonary status is by Critical Care Team. We will continue to follow. MMODL / IJN: [id number] /
[2022-08-10 11:58] LABS: Glucose,Whole Blood 162 mg/dL (70-110)
--- NOTE | 2022-08-10 11:58 | P.PN ---
Subjective Progress Note Date: 08/10/22 This is a 87-year-old female patient with a known history of coronary artery disease with previous stent placements, hypothyroidism, morbid obesity, multiple orthopedic surgeries, congestive heart failure, diabetes bella, hypertension, hyperlipidemia, osteoarthritis, obstructive sleep apnea on BiPAP, CVA/TIA, oxygen dependent and she was recently discharged from here to [facility] on the [place] and was just home for 3 days when she developed a syncopal episode yesterday. Her that may related to low blood sugar and try to give her oral issues which she vomited. She was brought into the emergency room yesterday. She is seen today in consultation. She remains in the emergency department. She is sitting up in bed. She is basically just moaning and groaning. Her family is at the bedside and provides him permission. She was initially placed on BiPAP. She is currently on 6 L high flow nasal cannula with O2 saturations in the 90s. Afebrile. Somewhat hypotensive. Blood culture reveals no growth to date. Urine culture pending. White count 19.1. Hemoglobin 8.0. Sodium 136. Potassium 4.6. Bicarb 17. BUN 66. Creatinine 2.27. Glucose 145. D-dimer 4.73. ProBNP 426. Troponin negative 1. CT angiogram ruled out pulmonary embolism. There is evidence of cardiomegaly with pulmonary vascular congestion. Scattered airspace opacities more consolidation in the right lung base. Rule out aspiration. Computed tomography scan of the abdomen and pelvis revealed extensive stool burden throughout the colon. 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 Today's chest x-ray shows Nasogastric tube in place. Mild cardiomegaly with bibasilar acute infiltrate and/or atelectasis. She's been initiated on Symbicort, DuoNeb inhalations, antibiotics in the form of Levaquin. She is anticoagulated with Eliquis. The patient is seen today for per 2022 in follow-up in the intensive care unit. Just after midnight they called an a team on her due to her being obtunded and hypotensive. She was on the sixth liter Ventimask and they do arterial blood gases that revealed a pO2 of 136, pCO2 31, pH 7.28. She was placed on BiPAP 12/5 and 50% and transferred into the intensive care unit. She received 3 A of sodium bicarb. She has D5W with 3 A of sodium bicarb at 75 ML's per hour. She is on norepinephrine at 27 mcg/m. Vasopressin at 0.03 units per minute. 0.9 normal saline at 20 mL per hour. She did undergo central line placement and arterial line placement. Follow-up blood gases reveal a pO2 of 295. PCO2 of 48. PH is 7.20 100% FiO2. White count 8.7. Hemoglobin 8.2. Platelets 311. Sodium 134. Potassium 6.3. Chloride 110. Bicarb 13. BUN 81. Creatinine 2.68. Glucose 134. Pro-calcitonin 11.0. She remains on bronchodilators. Continued on antibiotics in the form of Levaquin and cefepime. Her culture positive for group D enterococcus and gram-negative bacilli. Blood culture reveals no growth. Objective - Vital Signs Vital signs: Vital Signs Temp 98.9 F 08/10/22 08:00 Pulse 98 08/10/22 11:42 Resp 18 08/10/22 09:00 BP 90/37 08/10/22 09:00 Pulse Ox 94 L 08/10/22 09:00 FiO2 50 08/10/22 11:26 Intake & Output 08/09/22 08/10/22 08/10/22 18:59 06:59 18:59 Intake Total 473.702 912.926 Output Total 575 455 55 Balance -575 18.702 857.926 Weight 102.058 kg 109 kg Intake: IV 310 585 Calcium Gluconate in NaCl 100 1 gm In Saline 1 100ml. bag @ 100 mls/hr IVPB ONCE ONE Rx#:[id number] Dextrose 5% in Water 1, 250 000 ml @ 100 mls/hr IV . [id number] [facility] with Sodium Bicarb (1 Meq/ml) 150 ml Rx#:[id number] Invasive Line 1 10 10 Invasive Line 3 50 Levofloxacin 500Mg-D5w 100 Pmx 500 mg In Dextrose/ Water 100 100ml.bag @ 100 mls/hr IVPB Q48H [facility] Rx# :[id number] Sodium Chloride 0.9% 1, 300 75 000 ml @ 75 mls/hr IV . [id number] [facility] Rx#:[id number] Intake, IV Titration 163.702 327.926 Amount Norepinephrine 4 mg In 163.702 327.926 Sodium Chloride 0.9% 250 ml @ 0.03 MCG/KG/MIN 11. 665 mls/hr IV .[id number] [facility] Rx#:[id number] Output: Gastric Drainage 400 400 Urine 175 55 55 Other: Voiding Method Indwelling Catheter - Exam GENERAL EXAM: Arousable, 87-year-old morbidly obese female, on BiPAP 12/5 and 50% FiO2. HEAD: Normocephalic. EYES: Normal reaction of pupils, equal size. NOSE: Nasogastric tube secured in place. Clear with pink turbinates. THROAT: No erythema or exudates. NECK: No masses, no JVD. CHEST: No chest wall deformity. LUNGS: Equal air entry with crackles in the bilateral bases. CVS: S1 and S2 normal with no audible murmur, regular rhythm. ABDOMEN: No hepatosplenomegaly, normal bowel sounds, no guarding or rigidity. SPINE: No scoliosis or deformity SKIN: No rashes CENTRAL NERVOUS SYSTEM: Arousable but drifts off easily, tone is normal in all 4 extremities. EXTREMITIES: There is 1-2+ peripheral edema. Changes of chronic venous stasis. No clubbing, no cyanosis. Peripheral pulses are intact. - Labs CBC & Chem 7: 08/10/22 05:50 08/10/22 05:50 Labs: Abnormal Lab Results - Last 24 Hours (Table) 08/09/22 08/09/22 08/09/22 Range/Units 10:53 10:53 11:51 RBC (3.80-5.40) m/uL Hgb (11.4-16.0) gm/dL Hct (34.0-46.0) % MCHC (31.0-37.0) g/dL RDW (11.5-15.5) % Lymphocytes # (Manual) (1.0-4.8) k/uL Metamyelocytes # (Man) (0) k/uL ABG pH (7.35-7.45) ABG pCO2 (35-45) mmHg ABG pO2 (83-108) mmHg ABG HCO3 (21-25) mmol/L ABG Total CO2 (19-24) mmol/L ABG O2 Saturation (94-97) % Sodium (137-145) mmol/L Potassium (3.5-5.1) mmol/L Chloride (98-107) mmol/L Carbon Dioxide (22-30) mmol/L BUN (7-17) mg/dL Creatinine (0.52-1.04) mg/dL Glucose (74-99) mg/dL POC Glucose (mg/dL) 185 H (70-110) mg/dL Plasma Lactic Acid Russel 2.3 H* (0.7-2.0) mmol/L Calcium (8.4-10.2) mg/dL Magnesium (1.6-2.3) mg/dL Procalcitonin 11.00 H (0.02-0.09) ng/mL 08/09/22 08/09/22 08/09/22 Range/Units 14:10 17:39 17:56 RBC (3.80-5.40) m/uL Hgb (11.4-16.0) gm/dL Hct (34.0-46.0) % MCHC (31.0-37.0) g/dL RDW (11.5-15.5) % Lymphocytes # (Manual) (1.0-4.8) k/uL Metamyelocytes # (Man) (0) k/uL ABG pH (7.35-7.45) ABG pCO2 (35-45) mmHg ABG pO2 (83-108) mmHg ABG HCO3 (21-25) mmol/L ABG Total CO2 (19-24) mmol/L ABG O2 Saturation (94-97) % Sodium (137-145) mmol/L Potassium (3.5-5.1) mmol/L Chloride (98-107) mmol/L Carbon Dioxide (22-30) mmol/L BUN (7-17) mg/dL Creatinine (0.52-1.04) mg/dL Glucose (74-99) mg/dL POC Glucose (mg/dL) 196 H (70-110) mg/dL Plasma Lactic Acid Russel 2.5 H* 2.6 H* (0.7-2.0) mmol/L Calcium (8.4-10.2) mg/dL Magnesium (1.6-2.3) mg/dL Procalcitonin (0.02-0.09) ng/mL 08/09/22 08/10/22 08/10/22 Range/Units 21:53 00:15 00:55 RBC (3.80-5.40) m/uL Hgb (11.4-16.0) gm/dL Hct (34.0-46.0) % MCHC (31.0-37.0) g/dL RDW (11.5-15.5) % Lymphocytes # (Manual) (1.0-4.8) k/uL Metamyelocytes # (Man) (0) k/uL ABG pH 7.28 L (7.35-7.45) ABG pCO2 31 L (35-45) mmHg ABG pO2 136 H (83-108) mmHg ABG HCO3 15 L (21-25) mmol/L ABG Total CO2 16 L (19-24) mmol/L ABG O2 Saturation 99.1 H (94-97) % Sodium (137-145) mmol/L Potassium (3.5-5.1) mmol/L Chloride (98-107) mmol/L Carbon Dioxide (22-30) mmol/L BUN (7-17) mg/dL Creatinine (0.52-1.04) mg/dL Glucose (74-99) mg/dL POC Glucose (mg/dL) 142 H (70-110) mg/dL Plasma Lactic Acid Russel 2.9 H* (0.7-2.0) mmol/L Calcium (8.4-10.2) mg/dL Magnesium (1.6-2.3) mg/dL Procalcitonin (0.02-0.09) ng/mL 08/10/22 08/10/22 08/10/22 Range/Units 01:10 02:31 05:47 RBC (3.80-5.40) m/uL Hgb (11.4-16.0) gm/dL Hct (34.0-46.0) % MCHC (31.0-37.0) g/dL RDW (11.5-15.5) % Lymphocytes # (Manual) (1.0-4.8) k/uL Metamyelocytes # (Man) (0) k/uL ABG pH (7.35-7.45) ABG pCO2 (35-45) mmHg ABG pO2 (83-108) mmHg ABG HCO3 (21-25) mmol/L ABG Total CO2 (19-24) mmol/L ABG O2 Saturation (94-97) % Sodium (137-145) mmol/L Potassium (3.5-5.1) mmol/L Chloride (98-107) mmol/L Carbon Dioxide (22-30) mmol/L BUN (7-17) mg/dL Creatinine (0.52-1.04) mg/dL Glucose (74-99) mg/dL POC Glucose (mg/dL) 141 H 139 H (70-110) mg/dL Plasma Lactic Acid Russel 3.2 H* (0.7-2.0) mmol/L Calcium (8.4-10.2) mg/dL Magnesium (1.6-2.3) mg/dL Procalcitonin (0.02-0.09) ng/mL 08/10/22 08/10/22 08/10/22 Range/Units 05:50 05:50 05:50 RBC 3.07 L (3.80-5.40) m/uL Hgb 8.2 L (11.4-16.0) gm/dL Hct 27.5 L (34.0-46.0) % MCHC 29.8 L (31.0-37.0) g/dL RDW 15.7 H (11.5-15.5) % Lymphocytes # (Manual) 0.78 L (1.0-4.8) k/uL Metamyelocytes # (Man) 0.26 H (0) k/uL ABG pH (7.35-7.45) ABG pCO2 (35-45) mmHg ABG pO2 (83-108) mmHg ABG HCO3 (21-25) mmol/L ABG Total CO2 (19-24) mmol/L ABG O2 Saturation (94-97) % Sodium 134 L (137-145) mmol/L Potassium 6.3 H* (3.5-5.1) mmol/L Chloride 110 H (98-107) mmol/L Carbon Dioxide 13 L (22-30) mmol/L BUN 81 H (7-17) mg/dL Creatinine 2.68 H (0.52-1.04) mg/dL Glucose 134 H (74-99) mg/dL POC Glucose (mg/dL) (70-110) mg/dL Plasma Lactic Acid Russel 2.1 H* (0.7-2.0) mmol/L Calcium 6.9 L (8.4-10.2) mg/dL Magnesium (1.6-2.3) mg/dL Procalcitonin (0.02-0.09) ng/mL 08/10/22 08/10/22 08/10/22 Range/Units 05:50 08:05 11:37 RBC (3.80-5.40) m/uL Hgb (11.4-16.0) gm/dL Hct (34.0-46.0) % MCHC (31.0-37.0) g/dL RDW (11.5-15.5) % Lymphocytes # (Manual) (1.0-4.8) k/uL Metamyelocytes # (Man) (0) k/uL ABG pH 7.20 L (7.35-7.45) ABG pCO2 48 H (35-45) mmHg ABG pO2 295 H (83-108) mmHg ABG HCO3 19 L (21-25) mmol/L ABG Total CO2 (19-24) mmol/L ABG O2 Saturation 99.9 H (94-97) % Sodium (137-145) mmol/L Potassium (3.5-5.1) mmol/L Chloride (98-107) mmol/L Carbon Dioxide (22-30) mmol/L BUN (7-17) mg/dL Creatinine (0.52-1.04) mg/dL Glucose (74-99) mg/dL POC Glucose (mg/dL) 164 H (70-110) mg/dL Plasma Lactic Acid Russel (0.7-2.0) mmol/L Calcium (8.4-10.2) mg/dL Magnesium 3.0 H (1.6-2.3) mg/dL Procalcitonin (0.02-0.09) ng/mL Microbiology - Last 24 Hours (Table) 08/08/22 13:30 Blood Culture - Final Blood 08/08/22 13:10 Urine Culture - Preliminary Urine,Voided Group D Enterococcus Gram Neg Bacilli 08/08/22 13:00 Blood Culture - Preliminary Blood No Growth after 24 hours Assessment and Plan Assessment: Syncope suspect secondary to hypotension related to urinary tract infection, sepsis. Urine culture positive for group D enterococcus, gram-negative bacilli Hypotension secondary to above, now requiring pressor support Acute on chronic hypoxemic respiratory failure secondary to suspected diastolic congestive heart failure. The patient did deteriorate early this morning and is now in the intensive care unit on BiPAP 12/5 and 100% FiO2. Leukocytosis secondary to suspected urinary tract infection Previous history of urinary tract infections Acute on chronic kidney disease Recent COVID-19 infection History of valvular heart disease with aortic valve stenosis and preserved LV function Chronic changes in the right lower lobe with small right pleural effusion Acute on chronic anemia my current hemoglobin 8.0 History of chronic obstructive pulmonary disease History of prior tobacco dependence History of diastolic congestive heart failure History of coronary disease with multiple stent placements History of CVA/TIA History of diabetes mellitus Morbid obesity Hypertension Hyperlipidemia Hypothyroidism Poor overall functional performance based on the above-mentioned multiple co morbidities with recent stay and ECF Plan: The patient was seen and evaluated Chest x-ray, ABGs, labs and medications reviewed. Continue bronchodilators Continue antibiotics Titrate the FiO2 as tolerated Remains full code per 's request Overall prognosis remains poor Central line and arterial lines placed May require intubation mechanical ventilatory support We will continue to follow and make further recommendations based on her clinical status I have personally seen and examined the patient, performed the documentation and the assessment and plan as written. Number of minutes spent on the visit: 15.
[2022-08-10] MEDS ORDERED: CEFEPIME 2 GM in SODIUM CHLORIDE 0.9% 100 ML IVPB SCH (12:00)
[2022-08-10] MEDS ORDERED: propofoL 100 ML IV ONE (12:08)
[2022-08-10] MEDS: CHLORHEXIDINE GLUCONATE 15 ML CUP MUCOUS MEM SCH ×2 (12:41→21:05)
[2022-08-10] MEDS: CEFEPIME 1 GM in SODIUM CHLORIDE 0.9% 50 ML IVPB SCH (12:42)
--- NOTE | 2022-08-10 13:05 | XR ---
EXAMINATION TYPE: XR chest 1V portable DATE OF EXAM: 08/10/2022 COMPARISON: 08/10/2022 HISTORY: ET tube placement TECHNIQUE: Single frontal view of the chest is obtained. FINDINGS: ET tube is seen with the tip approximately 2 cm above the amalia. Left-sided central line noted. Postsurgical changes overlying the cervical spine. A bilateral lower lobe infiltrate and small effusion. Exam limited by marked patient rotation. Hypertrophic and degenerative change of the spine . IMPRESSION: Stable bilateral lower lobe infiltrate. ET tube 2 cm above amalia.
[2022-08-10 13:57] LABS: ABG Base Excess -9.3 mmol/L; ABG HCO3 19 mmol/L (21-25); ABG Oxygen Saturation 98.3 % (94-97); ABG PCO2 48 mmHg (35-45); ABG PO2 219 mmHg (83-108); ABG TCO2 20 mmol/L (19-24)
[2022-08-10 13:58] LABS: Allen Test Performed? no
--- NOTE | 2022-08-10 15:39 | P.PN ---
Subjective Progress Note Date: 08/10/22 CHIEF COMPLAINT: Abdominal pain HISTORY OF PRESENT ILLNESS: Patient is currently ICU. She required to be intubated and placed on mechanical ventilation this morning. She was obtunded and hypotensive. She is on Levophed and vasopressin. NG tube with 150 mL dark bilious output through the night and this morning. Patient had minimal stool output with molasses enema yesterday. Afebrile. WBC 19 down to 8.7 hemoglobin 8.2 platelets 311 sodium 134 potassium 5.3 creatinine 2.68 lactic acid 3.2 magnesium 3.0 PHYSICAL EXAM: VITAL SIGNS: Reviewed GENERAL: no acute distress. HEENT: No sclera icterus. Extraocular movements grossly intact. Moist buccal mucosa. Head is atraumatic, normocephalic. Hears conversational speech. No nasal drainage. NECK: Supple without lymphadenopathy. CHEST: Non-labored respirations and equal bilateral excursions. CARDIOVASCULAR: Palpable 2+ radial pulses. ABDOMEN: distended. MUSCULOSKELETAL: No clubbing or cyanosis. ASSESSMENT: 1. Sigmoid volvulus 2. Constipation 3. Syncopal episode 4. Lactic acidosis 5. Acute on chronic kidney disease 6. Possible UTI 7. History of atrial fibrillation 8. History of CVA PLAN: -No surgical intervention planned -Patient is considered high risk for surgical intervention -Continue conservative management -Continue NG tube for decompression -Continue supportive care -Eliquis on hold Physician Marketing Reporting Analyst note has been reviewed by physician. Signing provider agrees with the documented findings, assessment, and plan of care. Objective - Vital Signs Vital signs: Vital Signs Temp 98.7 F 08/10/22 12:00 Pulse 96 08/10/22 14:30 Resp 28 H 08/10/22 14:30 BP 142/60 08/10/22 14:30 Pulse Ox 98 08/10/22 14:30 FiO2 60 08/10/22 15:05 Intake & Output 08/09/22 08/10/22 08/10/22 18:59 06:59 18:59 Intake Total 713.911 9452.121 Output Total 575 455 390 Balance -575 18.702 1333.121 Weight 102.058 kg 109 kg Intake: IV 310 1045 Calcium Gluconate in NaCl 100 1 gm In Saline 1 100ml. bag @ 100 mls/hr IVPB ONCE ONE Rx#:[id number] Cefepime 1 gm In Sodium 50 Chloride 0.9% 50 ml @ 12. 5 mls/hr IVPB Q12H [facility] Rx #:[id number] Dextrose 5% in Water 1, 650 000 ml @ 100 mls/hr IV . [id number] [facility] with Sodium Bicarb (1 Meq/ml) 150 ml Rx#:[id number] Invasive Line 1 10 10 Invasive Line 3 60 Levofloxacin 500Mg-D5w 100 Pmx 500 mg In Dextrose/ Water 100 100ml.bag @ 100 mls/hr IVPB Q48H [facility] Rx# :[id number] Sodium Chloride 0.9% 1, 300 75 000 ml @ 75 mls/hr IV . [id number] [facility] Rx#:[id number] Intake, IV Titration 163.702 678.121 Amount Norepinephrine 4 mg In 163.702 678.121 Sodium Chloride 0.9% 250 ml @ 0.03 MCG/KG/MIN 11. 665 mls/hr IV .[id number] [facility] Rx#:[id number] Output: Gastric Drainage 400 400 150 Urine 175 55 240 Other: Voiding Method Indwelling Catheter ABP, PAP, CO, CI - Last Documented Arterial Blood Pressure 133/36 - Labs CBC & Chem 7: 08/10/22 05:50 08/10/22 11:30 Labs: Abnormal Lab Results - Last 24 Hours (Table) 08/09/22 08/09/22 08/09/22 Range/Units 10:53 17:39 17:56 RBC (3.80-5.40) m/uL Hgb (11.4-16.0) gm/dL Hct (34.0-46.0) % MCHC (31.0-37.0) g/dL RDW (11.5-15.5) % Lymphocytes # (Manual) (1.0-4.8) k/uL Metamyelocytes # (Man) (0) k/uL ABG pH (7.35-7.45) ABG pCO2 (35-45) mmHg ABG pO2 (83-108) mmHg ABG HCO3 (21-25) mmol/L ABG Total CO2 (19-24) mmol/L ABG O2 Saturation (94-97) % Sodium (137-145) mmol/L Potassium (3.5-5.1) mmol/L Chloride (98-107) mmol/L Carbon Dioxide (22-30) mmol/L BUN (7-17) mg/dL Creatinine (0.52-1.04) mg/dL Glucose (74-99) mg/dL POC Glucose (mg/dL) 196 H (70-110) mg/dL Plasma Lactic Acid Russel 2.6 H* (0.7-2.0) mmol/L Calcium (8.4-10.2) mg/dL Magnesium (1.6-2.3) mg/dL Procalcitonin 11.00 H (0.02-0.09) ng/mL 08/09/22 08/10/22 08/10/22 Range/Units 21:53 00:15 00:55 RBC (3.80-5.40) m/uL Hgb (11.4-16.0) gm/dL Hct (34.0-46.0) % MCHC (31.0-37.0) g/dL RDW (11.5-15.5) % Lymphocytes # (Manual) (1.0-4.8) k/uL Metamyelocytes # (Man) (0) k/uL ABG pH 7.28 L (7.35-7.45) ABG pCO2 31 L (35-45) mmHg ABG pO2 136 H (83-108) mmHg ABG HCO3 15 L (21-25) mmol/L ABG Total CO2 16 L (19-24) mmol/L ABG O2 Saturation 99.1 H (94-97) % Sodium (137-145) mmol/L Potassium (3.5-5.1) mmol/L Chloride (98-107) mmol/L Carbon Dioxide (22-30) mmol/L BUN (7-17) mg/dL Creatinine (0.52-1.04) mg/dL Glucose (74-99) mg/dL POC Glucose (mg/dL) 142 H (70-110) mg/dL Plasma Lactic Acid Russel 2.9 H* (0.7-2.0) mmol/L Calcium (8.4-10.2) mg/dL Magnesium (1.6-2.3) mg/dL Procalcitonin (0.02-0.09) ng/mL 08/10/22 08/10/22 08/10/22 Range/Units 01:10 02:31 05:47 RBC (3.80-5.40) m/uL Hgb (11.4-16.0) gm/dL Hct (34.0-46.0) % MCHC (31.0-37.0) g/dL RDW (11.5-15.5) % Lymphocytes # (Manual) (1.0-4.8) k/uL Metamyelocytes # (Man) (0) k/uL ABG pH (7.35-7.45) ABG pCO2 (35-45) mmHg ABG pO2 (83-108) mmHg ABG HCO3 (21-25) mmol/L ABG Total CO2 (19-24) mmol/L ABG O2 Saturation (94-97) % Sodium (137-145) mmol/L Potassium (3.5-5.1) mmol/L Chloride (98-107) mmol/L Carbon Dioxide (22-30) mmol/L BUN (7-17) mg/dL Creatinine (0.52-1.04) mg/dL Glucose (74-99) mg/dL POC Glucose (mg/dL) 141 H 139 H (70-110) mg/dL Plasma Lactic Acid Russel 3.2 H* (0.7-2.0) mmol/L Calcium (8.4-10.2) mg/dL Magnesium (1.6-2.3) mg/dL Procalcitonin (0.02-0.09) ng/mL 08/10/22 08/10/22 08/10/22 Range/Units 05:50 05:50 05:50 RBC 3.07 L (3.80-5.40) m/uL Hgb 8.2 L (11.4-16.0) gm/dL Hct 27.5 L (34.0-46.0) % MCHC 29.8 L (31.0-37.0) g/dL RDW 15.7 H (11.5-15.5) % Lymphocytes # (Manual) 0.78 L (1.0-4.8) k/uL Metamyelocytes # (Man) 0.26 H (0) k/uL ABG pH (7.35-7.45) ABG pCO2 (35-45) mmHg ABG pO2 (83-108) mmHg ABG HCO3 (21-25) mmol/L ABG Total CO2 (19-24) mmol/L ABG O2 Saturation (94-97) % Sodium 134 L (137-145) mmol/L Potassium 6.3 H* (3.5-5.1) mmol/L Chloride 110 H (98-107) mmol/L Carbon Dioxide 13 L (22-30) mmol/L BUN 81 H (7-17) mg/dL Creatinine 2.68 H (0.52-1.04) mg/dL Glucose 134 H (74-99) mg/dL POC Glucose (mg/dL) (70-110) mg/dL Plasma Lactic Acid Russel 2.1 H* (0.7-2.0) mmol/L Calcium 6.9 L (8.4-10.2) mg/dL Magnesium (1.6-2.3) mg/dL Procalcitonin (0.02-0.09) ng/mL 08/10/22 08/10/22 08/10/22 Range/Units 05:50 08:05 11:30 RBC (3.80-5.40) m/uL Hgb (11.4-16.0) gm/dL Hct (34.0-46.0) % MCHC (31.0-37.0) g/dL RDW (11.5-15.5) % Lymphocytes # (Manual) (1.0-4.8) k/uL Metamyelocytes # (Man) (0) k/uL ABG pH (7.35-7.45) ABG pCO2 (35-45) mmHg ABG pO2 (83-108) mmHg ABG HCO3 (21-25) mmol/L ABG Total CO2 (19-24) mmol/L ABG O2 Saturation (94-97) % Sodium (137-145) mmol/L Potassium (3.5-5.1) mmol/L Chloride (98-107) mmol/L Carbon Dioxide (22-30) mmol/L BUN (7-17) mg/dL Creatinine (0.52-1.04) mg/dL Glucose (74-99) mg/dL POC Glucose (mg/dL) 164 H (70-110) mg/dL Plasma Lactic Acid Russel 3.2 H* (0.7-2.0) mmol/L Calcium (8.4-10.2) mg/dL Magnesium 3.0 H (1.6-2.3) mg/dL Procalcitonin (0.02-0.09) ng/mL 08/10/22 08/10/22 08/10/22 Range/Units 11:30 11:37 11:56 RBC (3.80-5.40) m/uL Hgb (11.4-16.0) gm/dL Hct (34.0-46.0) % MCHC (31.0-37.0) g/dL RDW (11.5-15.5) % Lymphocytes # (Manual) (1.0-4.8) k/uL Metamyelocytes # (Man) (0) k/uL ABG pH 7.20 L (7.35-7.45) ABG pCO2 48 H (35-45) mmHg ABG pO2 295 H (83-108) mmHg ABG HCO3 19 L (21-25) mmol/L ABG Total CO2 (19-24) mmol/L ABG O2 Saturation 99.9 H (94-97) % Sodium (137-145) mmol/L Potassium 5.3 H (3.5-5.1) mmol/L Chloride (98-107) mmol/L Carbon Dioxide (22-30) mmol/L BUN (7-17) mg/dL Creatinine (0.52-1.04) mg/dL Glucose (74-99) mg/dL POC Glucose (mg/dL) 162 H (70-110) mg/dL Plasma Lactic Acid Russel (0.7-2.0) mmol/L Calcium (8.4-10.2) mg/dL Magnesium (1.6-2.3) mg/dL Procalcitonin (0.02-0.09) ng/mL 08/10/22 Range/Units 13:56 RBC (3.80-5.40) m/uL Hgb (11.4-16.0) gm/dL Hct (34.0-46.0) % MCHC (31.0-37.0) g/dL RDW (11.5-15.5) % Lymphocytes # (Manual) (1.0-4.8) k/uL Metamyelocytes # (Man) (0) k/uL ABG pH 7.20 L (7.35-7.45) ABG pCO2 48 H (35-45) mmHg ABG pO2 219 H (83-108) mmHg ABG HCO3 19 L (21-25) mmol/L ABG Total CO2 (19-24) mmol/L ABG O2 Saturation 98.3 H (94-97) % Sodium (137-145) mmol/L Potassium (3.5-5.1) mmol/L Chloride (98-107) mmol/L Carbon Dioxide (22-30) mmol/L BUN (7-17) mg/dL Creatinine (0.52-1.04) mg/dL Glucose (74-99) mg/dL POC Glucose (mg/dL) (70-110) mg/dL Plasma Lactic Acid Russel (0.7-2.0) mmol/L Calcium (8.4-10.2) mg/dL Magnesium (1.6-2.3) mg/dL Procalcitonin (0.02-0.09) ng/mL Microbiology - Last 24 Hours (Table) 08/08/22 13:30 Blood Culture - Final Blood 08/08/22 13:10 Urine Culture - Preliminary Urine,Voided Group D Enterococcus Gram Neg Bacilli 08/08/22 13:00 Blood Culture - Preliminary Blood No Growth after 24 hours
[2022-08-10] MEDS ORDERED: ACETAMINOPHEN IV (For NPO) 1,000 MG in EMPTY BAG 1 BAG IVPB PRN (16:42)
[2022-08-10 17:23] LABS: Calcium 6.5 mg/dL (8.4-10.2); Potassium 5.5 mmol/L (3.5-5.1)
--- NOTE | 2022-08-10 17:59 | PCN ---
PROCEDURE NOTE PROCEDURE: Left subclavian triple-lumen catheter. CO-SURGEONS: Dr. Felix and Scooter Turner NP There was informed consent and universal timeout. The patient's procedure took place in room 265. PREOPERATIVE DIAGNOSIS: Hypotension, administration of fluids and pressors. POSTOPERATIVE DIAGNOSIS: Hypotension, administration of fluids and pressors. TRIPLE LUMEN CATHETER PLACEMENT: Indication: Hemodynamic monitoring/Intravenous access. A time-out was completed verifying correct patient, procedure, site, positioning, and implant(s) or special equipment if applicable. The patient was placed in a dependent position appropriate for triple lumen catheter placement based on the vein to be cannulated. The patient's left shoulder was prepped and draped in sterile fashion. 1% Lidocaine was used to anesthetize the surrounding skin area. A triple lumen 9F Cordis catheter was introduced into the left subclavian vein using Seldinger technique. The catheter was threaded smoothly over the guide wire and appropriate blood return was obtained. Each lumen of the catheter was evacuated of air and flushed with sterile saline. The catheter was then sutured in place to the skin and a sterile dressing applied. Perfusion to the extremity distal to the point of catheter insertion was checked and found to be adequate. There was good blood return from all 3 ports. The patient tolerated the procedure well. The catheter was sutured in place. Chest x-ray was ordered to check placement. The tip of the catheter was seen in the junction of superior vena cava and right atrium. Sterile dressings were applied by the nurse after the catheter was sutured into place. MMODL / IJN: [id number] /
[2022-08-10 18:23] LABS: Glucose,Whole Blood 393 mg/dL (70-110)
--- NOTE | 2022-08-10 18:41 | PCN ---
PROCEDURE NOTE PROCEDURE PERFORMED: Right femoral art line. PREOPERATIVE DIAGNOSES: 1. Frequent blood draws and blood gas monitoring. 2. Hypotension. POSTOPERATIVE DIAGNOSES: 1. Frequent blood draws and blood gas monitoring. 2. Hypotension. OPERATORS: 1. Dr. Peres. 2. Dr. Felix. 3. Scooter Turner, nurse practitioner. There were informed consent and universal time-out. We used the right femoral arterial site. ARTERIAL LINE PLACEMENT: A time-out was completed verifying correct patient, procedure, site, positioning, and implant(s) or special equipment if applicable. Syed's test was performed to ensure adequate perfusion. The patient's right groin was prepped and draped in sterile fashion. 1% Lidocaine was used to anesthetize the area. An 18G Arrow arterial line was introduced into the femoral artery. The catheter was threaded over the guide wire, and the needle was removed. There were good blood return and waveform. Blood loss was minimal. The catheter was then sutured in place to the skin. A sterile dressing was applied by the nurse. Perfusion to the extremity distal to the point of catheter insertion was checked and found to be adequate. The patient tolerated the procedure well, and there were no complications. MMODL / IJN: [id number] /
[2022-08-10] MEDS: VASOPRESSIN 60 UNIT in SODIUM CHLORIDE 0.9% 150 ML IV SCH (18:48)
--- NOTE | 2022-08-10 19:51 | P.CONS ---
History of Present Illness - Reason for Consult Consult date: 08/10/22 Sepsis Requesting physician: Beau Whitney - Chief Complaint Shortness of breath x few days - History of Present Illness Patient is a 87-year-old female past medical history significant for COPD/CHF, presented to the hospital 2 days ago for evaluation of increasing shortness of breath that started the day of presentation to the hospital apparently the patient did have a syncopal episode while she was on the toilet however the patient did not fell down or hit her head EMS was called in and the patient was brought into the hospital, patient was initially on the floor however the patient become hypotensive less responsive for which the patient was transferred to the ICU patient did get intubated however per the nursing staff no significant purulent secretion through the ET at the time of intubation, during this admission the patient did have a CT angiogram of the chest that was negative for PE did shows cardiomegaly with pulmonary vascular congestion scatter is specificity more concentrated change in the right lung base CT abdominal pelvis revealed extensive stool burden: And 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 patient was started on Levaquin she did have blood culture drawn which are now growing gram-negative bacilli and urinary showing gram- negative enterococcus infectious disease was consulted for further management of antibiotic therapy most of the information has been obtained from review the chart and talking to the family and the nurses start the patient is currently intubated on the vent Review of Systems Positive points has been mentioned in HPI complete review could not be obtained because of his underlying mental status Past Medical History Past Medical History: Coronary Artery Disease (CAD), Chest Pain / Angina, Heart Failure, COPD, CVA/TIA, Diabetes Mellitus, Hyperlipidemia, Hypertension, Myocardial Infarction (SC), Osteoarthritis (OA), Renal Disease, Sleep Apnea/CPAP/BIPAP, Thyroid Disorder Additional Past Medical History / Comment(s): Pt recently admitted to [facility] on 05/21/22/ gravely disabled, UTI, acquired hypothyroidism, exacerbation copd and chf, anemia. Other hx: IDDM type II, neuropathy bilateral hands/feet, CKD stage III, urinary retention, UTIs, anemia, home oxygen use ATC, bilateral lower extremity edema, current pressure ulcer decub per pt, gastritis, hiatal hernia, aortic stenosis, hemorrhoids. Last Myocardial Infarction Date:: 06/18/17 History of Any Multi-Drug Resistant Organisms: None Reported, ESBL Year Discovered:: 09/06/17 MDRO Source:: ESBL URINE Past Surgical History: Back Surgery, Heart Catheterization, Heart Catheterization With Stent, Joint Replacement, Orthopedic Surgery Additional Past Surgical History / Comment(s): Lumbar laminectomy decompression fusion L3-4 and L5-S1 with cell saver, lumbar instrumentation removal L4-5, L4- L5 laminectomy, BILATERAL KNEE REPLACEMENTS, ORIF RIGHT ANKLE, CERVICAL FUSION, bilateral rotator cuff repair, bilateral wrist carpal tunnel releases, pain procedures, left breast lumpectomy-benign, bilateral varicose vein stripping, bilateral cataracts, heart cath with 5 stents august 2021, egd/colonoscopy 04/13/22 Past Anesthesia/Blood Transfusion Reactions: No Reported Reaction Additional Past Anesthesia/Blood Transfusion Reaction / Comm: blood transfusion 04/01/[address] estrella's notes last hospital stay Date of Last Stent Placement:: 08/30/2021 Past Psychological History: No Psychological Hx Reported Additional Psychological History / Comment(s): Pt resides with her spouse. She has home care thru [facility]. She states she is now wheelchair bound. She has home oxygen. She receives some services thru [facility]. Smoking Status: Former smoker Past Alcohol Use History: None Reported Additional Past Alcohol Use History / Comment(s): Pt started smoking in 1955 and quit in 1974. She was a 1.5 ppd smoker. Past Drug Use History: None Reported - Past Family History Father Family Medical History: Myocardial Infarction (SC) Additional Family Medical History / Comment(s): Father at 40 of a SC. Mother Family Medical History: CVA/TIA Additional Family Medical History / Comment(s): Mother had a CVA Medications and Allergies Home Medications Medication Instructions Recorded Confirmed Type Nitroglycerin Sl Tabs [Nitrostat] 0.4 mg SL Q5M PRN 07/20/15 08/08/22 History Atorvastatin Calcium [Lipitor] 40 mg PO HS #1 tab 08/04/15 08/08/22 Rx Fluticasone/Umeclidin/Vilanter 1 puff INHALATION RT-HS 10/15/21 08/08/22 History [Trelegy Ellipta 100-62.5-25] Apixaban [Eliquis] 2.5 mg PO BID 12/09/21 08/08/22 History Amitriptyline HCl [Elavil] 100 mg PO HS 03/13/22 08/08/22 History Cyanocobalamin (Vitamin B-12) 1,000 mcg PO DAILY 03/13/22 08/08/22 History [Vitamin B-12] Gabapentin 300 mg PO TID #9 cap 04/04/22 08/08/22 Rx Furosemide [Lasix] 40 mg PO DAILY tab 04/13/22 08/08/22 Rx Amiodarone [Cordarone] 200 mg PO DAILY #90 tab 04/14/22 08/08/22 Rx Metoprolol Tartrate [Lopressor] 25 mg PO BID tab 04/14/22 08/08/22 Rx HYDROcodone/APAP 5-325MG [[place] 1 tab PO Q6H PRN 05/21/22 08/08/22 History 5-325] Insulin Lispro [humaLOG Kwikpen] See Protocol SQ ACHS PRN 05/21/22 08/08/22 History Calcium Carbonate [Tums] 1,000 mg PO Q6H PRN 08/08/22 08/08/22 History Docusate [Colace] 100 mg PO BID 08/08/22 08/08/22 History Ipratropium-Albuterol Nebulize 3 ml INHALATION RT-QID 08/08/22 08/08/22 History [Duoneb 0.5 mg-3 mg/3 ml Soln] Levothyroxine Sodium [Synthroid] 75 mcg PO DAILY 08/08/22 08/08/22 History Psyllium Husk 100% [Metamucil 6 gm PO DAILY 08/08/22 08/08/22 History Packet] Tamsulosin [Flomax] 0.4 mg PO DAILY 08/08/22 08/08/22 History metFORMIN HCL 1,000 mg PO BID 08/08/22 08/08/22 History Allergies Allergy/AdvReac Type Severity Reaction Status Date / Time Penicillins Allergy Rash/Hives Verified 08/08/22 17:14 Physical Exam Vitals: Vital Signs Temp Pulse Pulse Resp BP BP BP 08/10/22 09:00 100 18 90/37 08/10/22 08:45 100 13 79/47 08/10/22 08:30 115 H 21 104/37 08/10/22 08:15 89 13 101/52 08/10/22 08:13 95 08/10/22 08:03 95 08/10/22 08:00 98.9 F 108 H 16 95/54 08/10/22 07:59 02 07:45 89 22 97/41 08/10/22 07:30 85 25 H 113/46 08/10/22 07:15 87 20 113/54 08/10/22 07:00 85 21 113/54 08/10/22 06:45 87 24 118/60 08/10/22 06:30 82 22 109/40 08/10/22 06:15 87 20 101/36 08/10/22 06:10 84 19 88/31 08/10/22 06:00 86 17 94/62 08/10/22 05:50 84 17 92/39 08/10/22 05:40 80 22 104/29 08/10/22 05:30 85 23 110/33 08/10/22 05:20 86 20 107/60 08/10/22 05:10 85 29 H 92/31 08/10/22 05:00 84 17 92/31 08/10/22 04:50 82 25 H 107/36 08/10/22 04:40 83 19 102/30 08/10/22 04:30 82 9 L 89/64 08/10/22 04:20 82 9 L 99/74 08/10/22 04:10 84 18 88/47 08/10/22 04:00 99.0 F 86 17 81/35 08/10/22 03:51 08/10/22 03:50 81 17 91/36 08/10/22 03:40 87 22 96/30 08/10/22 03:30 82 13 84/61 08/10/22 03:20 83 18 100/67 08/10/22 03:10 81 24 93/62 08/10/22 03:00 84 17 87/49 08/10/22 02:50 82 11 L 55/30 08/10/22 02:40 81 15 55/30 08/10/22 02:30 80 18 85/31 08/10/22 02:20 82 24 73/26 08/10/22 02:10 82 19 169/154 08/10/22 02:00 81 5 L 62/42 08/10/22 01:50 80 23 62/42 08/10/22 01:40 83 23 77/24 08/10/22 01:34 89 16 08/10/22 01:03 08/10/22 01:00 76/42 08/10/22 00:34 108/62 08/10/22 00:00 99.7 F H 91 22 74/40 72/46 08/09/22 22:40 84 22 85/45 08/09/22 21:40 86 22 78/41 08/09/22 20:48 08/09/22 20:45 98.6 F 93 18 76/34 08/09/22 20:44 08/09/22 20:30 64 18 81/45 08/09/22 20:15 56 L 16 68/41 08/09/22 19:44 88 08/09/22 19:30 88 08/09/22 16:35 98.1 F 75 20 108/78 08/09/22 15:50 79/54 08/09/22 15:45 86 08/09/22 15:40 81 15 77/52 08/09/22 15:39 86 08/09/22 15:30 76 6 L 93/39 08/09/22 15:20 82 9 L 79/47 08/09/22 15:19 79 11 L 79/47 08/09/22 15:00 79 29 H 85/36 08/09/22 14:00 76 21 73/42 08/09/22 13:00 80 14 93/61 08/09/22 12:12 78 08/09/22 12:00 79 17 81/41 08/09/22 11:52 78 08/09/22 11:00 75 14 94/50 Pulse Ox FiO2 08/10/22 09:00 94 L 08/10/22 08:45 92 L 08/10/22 08:30 96 08/10/22 08:15 96 08/10/22 08:13 08/10/22 08:03 08/10/22 08:00 94 L 08/10/22 07:59 50 08/10/22 07:45 95 08/10/22 07:30 95 08/10/22 07:15 94 L 08/10/22 07:00 95 08/10/22 06:45 93 L 08/10/22 06:30 93 L 08/10/22 06:15 94 L 08/10/22 06:10 93 L 08/10/22 06:00 94 L 08/10/22 05:50 94 L 08/10/22 05:40 94 L 08/10/22 05:30 94 L 08/10/22 05:20 94 L 08/10/22 05:10 94 L 08/10/22 05:00 94 L 08/10/22 04:50 94 L 08/10/22 04:40 94 L 08/10/22 04:30 94 L 08/10/22 04:20 93 L 08/10/22 04:10 95 08/10/22 04:00 94 L 50 08/10/22 03:51 50 08/10/22 03:50 96 08/10/22 03:40 96 08/10/22 03:30 96 08/10/22 03:20 96 08/10/22 03:10 95 08/10/22 03:00 94 L 50 08/10/22 02:50 92 L 08/10/22 02:40 93 L 08/10/22 02:30 94 L 08/10/22 02:20 94 L 08/10/22 02:10 92 L 08/10/22 02:00 93 L 08/10/22 01:50 93 L 08/10/22 01:40 08/10/22 01:34 08/10/22 01:03 50 08/10/22 01:00 08/10/22 00:34 08/10/22 00:00 93 L 28 08/09/22 22:40 92 L 28 08/09/22 21:40 93 L 28 08/09/22 20:48 94 L 28 08/09/22 20:45 94 L 28 08/09/22 20:44 78 L 08/09/22 20:30 88 L 08/09/22 20:15 84 L 08/09/22 19:44 08/09/22 19:30 96 08/09/22 16:35 96 08/09/22 15:50 08/09/22 15:45 08/09/22 15:40 91 L 08/09/22 15:39 08/09/22 15:30 93 L 08/09/22 15:20 94 L 08/09/22 15:19 93 L 08/09/22 15:00 94 L 08/09/22 14:00 95 08/09/22 13:00 94 L 08/09/22 12:12 08/09/22 12:00 95 08/09/22 11:52 08/09/22 11:00 94 L Intake and Output 08/09/22 08/10/22 08/10/22 22:59 06:59 14:59 Intake Total 10 463.702 912.926 Output Total 575 455 55 Balance -565 8.702 857.926 Intake: IV 10 300 585 Calcium Gluconate in NaCl 100 1 gm In Saline 1 100ml. bag @ 100 mls/hr IVPB ONCE ONE Rx#:[id number] Dextrose 5% in Water 1, 250 000 ml @ 100 mls/hr IV . [id number] LEIGH ANN with Sodium Bicarb (1 Meq/ml) 150 ml Rx#:[id number] Invasive Line 1 10 10 Invasive Line 3 50 Levofloxacin 500Mg-D5w 100 Pmx 500 mg In Dextrose/ Water 100 100ml.bag @ 100 mls/hr IVPB Q48H [facility] Rx# :[id number] Sodium Chloride 0.9% 1, 300 75 000 ml @ 75 mls/hr IV . [id number] [facility] Rx#:[id number] Intake, IV Titration 163.702 327.926 Amount Norepinephrine 4 mg In 163.702 327.926 Sodium Chloride 0.9% 250 ml @ 0.03 MCG/KG/MIN 11. 665 mls/hr IV .[id number] [facility] Rx#:[id number] Output: Gastric Drainage 400 400 Urine 175 55 55 Other: Voiding Method Indwelling Catheter Indwelling Catheter Weight 102.058 kg 109 kg GENERAL DESCRIPTION: Elderly female intubated on the vent. HEENT: Shows Pallor , no scleral icterus. Oral mucous membrane is dry. NECK: Trachea central, no thyromegaly. LUNGS: Unlabored breathing. Decreased breath sounds at the base HEART: S1, S2, regular rate and rhythm. No loud murmur ABDOMEN: Soft, no tenderness , guarding or rigidity EXTREMITIES: No edema of feet. SKIN: No rash, no masses palpable. NEUROLOGICAL: The patient is sedated on the vent Results CBC & Chem 7: 08/21/22 04:15 08/21/22 04:15 Labs: Abnormal Lab Results - Last 24 Hours (Table) 08/09/22 08/09/22 08/09/22 Range/Units 10:53 10:53 10:53 WBC 19.1 H (3.8-10.6) k/uL RBC 3.01 L (3.80-5.40) m/uL Hgb 8.0 L D (11.4-16.0) gm/dL Hct 26.7 L (34.0-46.0) % MCHC 29.9 L (31.0-37.0) g/dL RDW 15.8 H (11.5-15.5) % Lymphocytes # (Manual) (1.0-4.8) k/uL Metamyelocytes # (Man) (0) k/uL ABG pH (7.35-7.45) ABG pCO2 (35-45) mmHg ABG pO2 (83-108) mmHg ABG HCO3 (21-25) mmol/L ABG Total CO2 (19-24) mmol/L ABG O2 Saturation (94-97) % Sodium 136 L (137-145) mmol/L Potassium (3.5-5.1) mmol/L Chloride (98-107) mmol/L Carbon Dioxide 17 L (22-30) mmol/L BUN 66 H (7-17) mg/dL Creatinine 2.27 H (0.52-1.04) mg/dL Glucose 145 H (74-99) mg/dL POC Glucose (mg/dL) (70-110) mg/dL Plasma Lactic Acid Russel (0.7-2.0) mmol/L Calcium 7.0 L (8.4-10.2) mg/dL Magnesium 2.6 H (1.6-2.3) mg/dL Procalcitonin 11.00 H (0.02-0.09) ng/mL 08/09/22 08/09/22 08/09/22 Range/Units 10:53 11:51 14:10 WBC (3.8-10.6) k/uL RBC (3.80-5.40) m/uL Hgb (11.4-16.0) gm/dL Hct (34.0-46.0) % MCHC (31.0-37.0) g/dL RDW (11.5-15.5) % Lymphocytes # (Manual) (1.0-4.8) k/uL Metamyelocytes # (Man) (0) k/uL ABG pH (7.35-7.45) ABG pCO2 (35-45) mmHg ABG pO2 (83-108) mmHg ABG HCO3 (21-25) mmol/L ABG Total CO2 (19-24) mmol/L ABG O2 Saturation (94-97) % Sodium (137-145) mmol/L Potassium (3.5-5.1) mmol/L Chloride (98-107) mmol/L Carbon Dioxide (22-30) mmol/L BUN (7-17) mg/dL Creatinine (0.52-1.04) mg/dL Glucose (74-99) mg/dL POC Glucose (mg/dL) 185 H (70-110) mg/dL Plasma Lactic Acid Russel 2.3 H* 2.5 H* (0.7-2.0) mmol/L Calcium (8.4-10.2) mg/dL Magnesium (1.6-2.3) mg/dL Procalcitonin (0.02-0.09) ng/mL 08/09/22 08/09/22 08/09/22 Range/Units 17:39 17:56 21:53 WBC (3.8-10.6) k/uL RBC (3.80-5.40) m/uL Hgb (11.4-16.0) gm/dL Hct (34.0-46.0) % MCHC (31.0-37.0) g/dL RDW (11.5-15.5) % Lymphocytes # (Manual) (1.0-4.8) k/uL Metamyelocytes # (Man) (0) k/uL ABG pH (7.35-7.45) ABG pCO2 (35-45) mmHg ABG pO2 (83-108) mmHg ABG HCO3 (21-25) mmol/L ABG Total CO2 (19-24) mmol/L ABG O2 Saturation (94-97) % Sodium (137-145) mmol/L Potassium (3.5-5.1) mmol/L Chloride (98-107) mmol/L Carbon Dioxide (22-30) mmol/L BUN (7-17) mg/dL Creatinine (0.52-1.04) mg/dL Glucose (74-99) mg/dL POC Glucose (mg/dL) 196 H (70-110) mg/dL Plasma Lactic Acid Russel 2.6 H* 2.9 H* (0.7-2.0) mmol/L Calcium (8.4-10.2) mg/dL Magnesium (1.6-2.3) mg/dL Procalcitonin (0.02-0.09) ng/mL 08/10/22 08/10/22 08/10/22 Range/Units 00:15 00:55 01:10 WBC (3.8-10.6) k/uL RBC (3.80-5.40) m/uL Hgb (11.4-16.0) gm/dL Hct (34.0-46.0) % MCHC (31.0-37.0) g/dL RDW (11.5-15.5) % Lymphocytes # (Manual) (1.0-4.8) k/uL Metamyelocytes # (Man) (0) k/uL ABG pH 7.28 L (7.35-7.45) ABG pCO2 31 L (35-45) mmHg ABG pO2 136 H (83-108) mmHg ABG HCO3 15 L (21-25) mmol/L ABG Total CO2 16 L (19-24) mmol/L ABG O2 Saturation 99.1 H (94-97) % Sodium (137-145) mmol/L Potassium (3.5-5.1) mmol/L Chloride (98-107) mmol/L Carbon Dioxide (22-30) mmol/L BUN (7-17) mg/dL Creatinine (0.52-1.04) mg/dL Glucose (74-99) mg/dL POC Glucose (mg/dL) 142 H (70-110) mg/dL Plasma Lactic Acid Russel 3.2 H* (0.7-2.0) mmol/L Calcium (8.4-10.2) mg/dL Magnesium (1.6-2.3) mg/dL Procalcitonin (0.02-0.09) ng/mL 08/10/22 08/10/22 08/10/22 Range/Units 02:31 05:47 05:50 WBC (3.8-10.6) k/uL RBC 3.07 L (3.80-5.40) m/uL Hgb 8.2 L (11.4-16.0) gm/dL Hct 27.5 L (34.0-46.0) % MCHC 29.8 L (31.0-37.0) g/dL RDW 15.7 H (11.5-15.5) % Lymphocytes # (Manual) 0.78 L (1.0-4.8) k/uL Metamyelocytes # (Man) 0.26 H (0) k/uL ABG pH (7.35-7.45) ABG pCO2 (35-45) mmHg ABG pO2 (83-108) mmHg ABG HCO3 (21-25) mmol/L ABG Total CO2 (19-24) mmol/L ABG O2 Saturation (94-97) % Sodium (137-145) mmol/L Potassium (3.5-5.1) mmol/L Chloride (98-107) mmol/L Carbon Dioxide (22-30) mmol/L BUN (7-17) mg/dL Creatinine (0.52-1.04) mg/dL Glucose (74-99) mg/dL POC Glucose (mg/dL) 141 H 139 H (70-110) mg/dL Plasma Lactic Acid Russel (0.7-2.0) mmol/L Calcium (8.4-10.2) mg/dL Magnesium (1.6-2.3) mg/dL Procalcitonin (0.02-0.09) ng/mL 08/10/22 08/10/22 08/10/22 Range/Units 05:50 05:50 05:50 WBC (3.8-10.6) k/uL RBC (3.80-5.40) m/uL Hgb (11.4-16.0) gm/dL Hct (34.0-46.0) % MCHC (31.0-37.0) g/dL RDW (11.5-15.5) % Lymphocytes # (Manual) (1.0-4.8) k/uL Metamyelocytes # (Man) (0) k/uL ABG pH (7.35-7.45) ABG pCO2 (35-45) mmHg ABG pO2 (83-108) mmHg ABG HCO3 (21-25) mmol/L ABG Total CO2 (19-24) mmol/L ABG O2 Saturation (94-97) % Sodium 134 L (137-145) mmol/L Potassium 6.3 H* (3.5-5.1) mmol/L Chloride 110 H (98-107) mmol/L Carbon Dioxide 13 L (22-30) mmol/L BUN 81 H (7-17) mg/dL Creatinine 2.68 H (0.52-1.04) mg/dL Glucose 134 H (74-99) mg/dL POC Glucose (mg/dL) (70-110) mg/dL Plasma Lactic Acid Russel 2.1 H* (0.7-2.0) mmol/L Calcium 6.9 L (8.4-10.2) mg/dL Magnesium 3.0 H (1.6-2.3) mg/dL Procalcitonin (0.02-0.09) ng/mL 08/10/22 Range/Units 08:05 WBC (3.8-10.6) k/uL RBC (3.80-5.40) m/uL Hgb (11.4-16.0) gm/dL Hct (34.0-46.0) % MCHC (31.0-37.0) g/dL RDW (11.5-15.5) % Lymphocytes # (Manual) (1.0-4.8) k/uL Metamyelocytes # (Man) (0) k/uL ABG pH (7.35-7.45) ABG pCO2 (35-45) mmHg ABG pO2 (83-108) mmHg ABG HCO3 (21-25) mmol/L ABG Total CO2 (19-24) mmol/L ABG O2 Saturation (94-97) % Sodium (137-145) mmol/L Potassium (3.5-5.1) mmol/L Chloride (98-107) mmol/L Carbon Dioxide (22-30) mmol/L BUN (7-17) mg/dL Creatinine (0.52-1.04) mg/dL Glucose (74-99) mg/dL POC Glucose (mg/dL) 164 H (70-110) mg/dL Plasma Lactic Acid Russel (0.7-2.0) mmol/L Calcium (8.4-10.2) mg/dL Magnesium (1.6-2.3) mg/dL Procalcitonin (0.02-0.09) ng/mL Microbiology - Last 24 Hours (Table) 08/08/22 13:30 Blood Culture - Final Blood 08/08/22 13:10 Urine Culture - Preliminary Urine,Voided Group D Enterococcus Gram Neg Bacilli 08/08/22 13:00 Blood Culture - Preliminary Blood No Growth after 24 hours Assessment and Plan (1) Sepsis Current Visit: Yes Status: Acute Code(s): A41.9 - SEPSIS, UNSPECIFIED ORGANISM SNOMED Code(s): 63053448 Plan: 1patient with sepsis/septic shock in this patient is in the hospital with syncopal episode of weakness patient is now intubated on the vent and requiring high dose pressor support to maintain her blood pressure, the patient is growing gram-negative bacilli in the blood could be related to the urine as she is growing gram-negative as well as enterococcus in the urine versus related to the right lower lobe pneumonia. 2patient with penicillin ALLERGY that would limit the number of antibiotic safety use 3patient with the borderline kidney function has risk of nephrotoxicity 4we'll obtain sputum for grams and culture and follow-up on the blood as well as urine cultures 5patient was started on cefepime while waiting for ID sensitivity of this pathogen We will follow on clinical condition and cultures to further adjust medication if needed Thank you for this consultation will follow this patient with you Time with Patient: Greater than 30
[2022-08-10] MEDS: NOREPINEPHRINE 32 MG in SODIUM CHLORIDE 0.9% 218 ML IV SCH (20:15)
[2022-08-10] MEDS: BUDESONIDE 1 MG/2 ML NEBU INHALATION SCH (20:58)
[2022-08-10] MEDS: FORMOTEROL FUMARATE 20 MCG/2 ML NEBU INHALATION SCH (20:58)
[2022-08-11] MEDS ORDERED: SODIUM CHLORIDE 0.9% 500 ML 500 ML IV ONE ×4 (00:31→18:03)
[2022-08-11] MEDS: IPRATROPIUM-ALBUTEROL 3 ML NEB INHALATION SCH ×6 (00:43→19:26)
[2022-08-11 00:56] LABS: Glucose,Whole Blood 234 mg/dL (70-110)
[2022-08-11] MEDS: INSULIN ASPART (NovoLOG) 100 UNIT/ML VIAL SQ SCH ×5 (01:49→23:13)
[2022-08-11] MEDS: CEFEPIME 1 GM in SODIUM CHLORIDE 0.9% 50 ML IVPB SCH ×2 (01:50→11:35)
[2022-08-11] MEDS ORDERED: FUROSEMIDE 10 MG/ML 4 ML VIAL IV STA (03:02)
[2022-08-11] MEDS ORDERED: DEXTROSE 5% IN WATER 100 ML with AMIODARONE 150 MG IV ONE (03:22)
[2022-08-11] MEDS ORDERED: AMIODARONE 360 MG in DEXTROSE 5% IN WATER 200 ML IV ONE ×2 (03:22)
[2022-08-11 05:40] LABS: Glucose,Whole Blood 255 mg/dL (70-110)
[2022-08-11 05:50] LABS: HCT 28.4 % (34.0-46.0); HGB 8.6 gm/dL (11.4-16.0); Hypochromasia Moderate; MCH 26.4 pg (25.0-35.0); MCHC 30.2 g/dL (31.0-37.0); MCV 87.3 fL (80.0-100.0); Mean Platelet Volume 8.5; Platelet Count 349 k/uL (150-450); RBC 3.25 m/uL (3.80-5.40)
[2022-08-11 05:53] LABS: ABG Base Excess -4.3 mmol/L; ABG HCO3 22 mmol/L (21-25); ABG Oxygen Saturation 95.8 % (94-97); ABG PCO2 45 mmHg (35-45); ABG PO2 99 mmHg (83-108); ABG TCO2 23 mmol/L (19-24); Allen Test Performed? Yes
[2022-08-11 06:19] LABS: Potassium 5.1 mmol/L (3.5-5.1)
[2022-08-11 06:34] LABS: Calcium 5.8 mg/dL (8.4-10.2)
[2022-08-11 06:42] LABS: Band Neutrophils % 12 %; Dohle Bodies Present; Large Platelets Present; Lymphocytes # (M) 2.44 k/uL (1.0-4.8); Metamyelocytes # (M) 0.49 k/uL (0); Metamyelocytes % 4 %; Monocytes # (M) 0.85 k/uL (0-1.0); Neutrophils % (M) 58 %; Nucleated Red Blood Cells 1 /100 WBC (0-0); Polychromasia Present; Total Cells Counted 200; Toxic Granulation Present; WBC 12.2 k/uL (3.8-10.6)
[2022-08-11] MEDS ORDERED: CALCIUM GLUCONATE IN NACL 2 GM in SALINE 1 100ML.BAG IVPB ONE ×2 (07:30→20:12)
[2022-08-11] MEDS: AMIODARONE 200 MG TAB PO SCH (07:34)
[2022-08-11] MEDS: NOREPINEPHRINE 32 MG in SODIUM CHLORIDE 0.9% 218 ML IV SCH ×2 (07:39→12:04)
[2022-08-11] MEDS: DEXTROSE 5% IN WATER 1,000 ML with SODIUM BICARB (1 MEQ/ML) 150 ML IV SCH ×2 (07:39→18:05)
[2022-08-11] MEDS: TAMSULOSIN 0.4 MG CAP.ER.24H PO SCH (07:40)
[2022-08-11] MEDS: polyethylene glycoL 3350 17 GM POWD.PACK PO SCH ×2 (07:40→20:31)
[2022-08-11] MEDS: BUDESONIDE 1 MG/2 ML NEBU INHALATION SCH ×2 (07:52→19:26)
[2022-08-11] MEDS: FORMOTEROL FUMARATE 20 MCG/2 ML NEBU INHALATION SCH ×2 (07:52→19:26)
--- NOTE | 2022-08-11 08:02 | XR ---
EXAMINATION TYPE: XR chest 1V portable DATE OF EXAM: 08/11/2022 COMPARISON: 08/10/2019 HISTORY: SOB, Follow Up FINDINGS: Indwelling tubes and catheters are unchanged. No change in bibasilar opacities. Stable appearance of the cardio-mediastinal structures at this time. Pleural effusion unchanged. IMPRESSION: 1. Stable portable chest. Clinical correlation and follow up until resolution is recommended.
[2022-08-11] MEDS: CHLORHEXIDINE GLUCONATE 15 ML CUP MUCOUS MEM SCH ×2 (09:01→20:33)
[2022-08-11] MEDS: PANTOPRAZOLE 40 MG/10 ML VIAL IVP SCH (09:01)
--- NOTE | 2022-08-11 09:15 | PN ---
PROGRESS NOTE Mrs. Newberry is in atrial fib with a fairly controlled ventricular rate. She has dropped her hemoglobin. She has very hemorrhagic secretions from her mouth around the NG tube. Her hemoglobin has also dropped. She is not taking any anticoagulants. She is intubated. I am recommending that we hold off anticoagulation. She has atrial fib which is not new but the rate is well controlled. We can discontinue the amiodarone drip at this time. She is on a high dose of Levophed and vasopressin. Prognosis remains poor. S1 and S2 heard normally. Irregular rate and rhythm. Short systolic murmur. Lungs revealed ventilator assisted breath sounds. Prognosis remains poor. Discussed this with the family. No other new suggestions other than holding amiodarone and rate control is fairly decent. Defer anticoagulation given the circumstances. MMODL / IJN: [id number] /
--- NOTE | 2022-08-11 09:55 | P.PN ---
Subjective Progress Note Date: 08/11/22 H&P Date: 08/09/22 Chief Complaint: Shortness of breath,Altered mental statConstipation, syncope, hyperglycemia This is a pleasant 87-year-old female with past medical history of CAD, MS, stent placement, aortic stenosis ,chronic hypoxic respiratory failure,on 2 L nasal cannula ,Covid 06/22,COPD, former nicotine dependence, obstructive sleep apnea ,CVA/TIA, diabetes mellitus, hypertension, hyperlipidemia, hypothyroidism, recurrent UTIs,CKD III, urinary retention, anemia, bilateral peripheral neuropathy, gait dysfunction,utilizing walker, falls, morbid obesity-BMI 39.9 and multiple other medical issues brought in via ambulance, on BiPAP to the ER for change in level of consciousness, syncope, nausea, vomiting, hyperglycemia, constipation-on [place], shortness of breath, recently discharged from [facility] subacute rehab on 08/06/2022. Information being obtained from chart and daughter at bedside. Daughter reports they are unsure of her last bowel movement, possibly , 08/03. [facility] documented large bowel movement on 08/04 and 08/05. Reports yesterday blood sugars were running high in the 400s, patient developed nausea and vomiting, change in sensorium, passed out while on the toilet. Reports patient "coughs all the time, but has COPD", no knowledge of fevers, denies chills. Denies chest pain, palpitations, positive shortness of breath. Developed hypotension in the ER in addition to emesis, received fluid bolus .Chest x-ray reported right basilar infiltrate with persistent small right effusion, no overt failure. EKG reported sinus rhythm, troponin negative 1. KUB reported marked gastric distention, additional small bowel loops dilated, possibly retained debris within the rectum and sigmoid colon. 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 NG tube placed in the ER with 1200 MLS bilious output reported overnight. D-dimer elevated 4.73, CT angio chest reported no evidence of pulmonary embolism,more consolidation changes in the right lung base, rule out aspiration. ProBNP 426. UA reported many WBC clumps, 165 WBCs, large leukocytes, negative nitrates, culture pending. Afebrile, on admission temperature 96.7, currently 98.8. WBC 14.3. lactic acid 3.5, repeat level pending. Hemoglobin 10.2, platelets 4:15, a I's within normal limits, BUN 40, creatinine 1.5. BiPAP weaned off, currently requiring 6 L nasal cannula O2 to maintain O2 sats in the low 90s. 08/10/22 Continued to decline throughout the night requiring ICU admission, maintained on vasopressin, Levophed and bicarb drips. Received fluid boluses throughout the night. Lactic acid decreased to 2.1. Low urine output on Lasix IV push. BUN 81, creatinine 2.68. Hyperkalemic, received calcium, insulin, D50, sodium bicarbonate. Chest x-ray reporting stable bilateral lower lobe infiltrate and small effusion. Afebrile, T-max 99.7. Continues on Levaquin, WBC normalized today. Cefepime added to antibiotic regimen today. Preliminary Urine cultures reporting group D enterococcus 50-100,000 colonies and gram-negative bacilli 10 and 49,000 colonies. 07/03 Blood cultures reporting GNB. Hemoglobin 8.2, platelets 311. 08/11/2022 Vent dependent, FiO2 60%/+5 of PEEP. Chest x-ray reports stable, no change in bibasilar opacities, pleural effusion unchanged. Continues on the Levophed and vasopressin drips. Febrile to the night, T-max 102.4, WBC increased to 12.2. Lactic acid trended up during the night, received fluid boluses, currently at 3.2. Developed atrial fibrillation with RVR, bolused with amiodarone and currently on amiodarone drip. Urine culture reporting enterococcus faecalis and Pseudomonas aeruginosa.Films reviewed by general surgery, reporting sigmoid volvulus. Recommending conservative management. BUN 79, creatinine 2.74. Hyperglycemic. Hemoglobin 8.6, platelets 349. Anticoagulation remains on hold. Objective - Vital Signs Vital signs: Vital Signs Temp 103.2 F H 08/11/22 08:24 Pulse 96 08/11/22 08:16 Resp 28 H 08/11/22 08:24 BP 123/39 08/11/22 08:24 Pulse Ox 94 L 08/11/22 08:24 FiO2 50 08/11/22 08:24 Intake & Output 08/10/22 08/11/22 08/11/22 18:59 06:59 18:59 Intake Total 3961.446 3163.435 340 Output Total 800 715 35 Balance 3161.446 2448.435 305 Intake: IV 2545 2520 240 .9 20 20 Calcium Gluconate in NaCl 100 100 1 gm In Saline 1 100ml. bag @ 100 mls/hr IVPB ONCE ONE Rx#:[id number] Cefepime 1 gm In Sodium 50 Chloride 0.9% 50 ml @ 12. 5 mls/hr IVPB Q12H [facility] Rx #:[id number] Dextrose 5% in Water 1, 1050 1200 100 000 ml @ 100 mls/hr IV . [id number] [facility] with Sodium Bicarb (1 Meq/ml) 150 ml Rx#:[id number] Invasive Line 1 10 Invasive Line 3 70 10 Invasive Line 5 90 30 Levofloxacin 500Mg-D5w 100 100 Pmx 500 mg In Dextrose/ Water 100 100ml.bag @ 100 mls/hr IVPB Q48H [facility] Rx# :[id number] Sodium Chloride 0.9% 1, 75 000 ml @ 75 mls/hr IV . [id number] [facility] Rx#:[id number] Sodium Chloride 0.9% 500 1000 1180 20 ml 500 ml @ 999 mls/hr IV .Q31M ONE Rx#:[id number] Intake, IV Titration 1416.446 643.435 100 Amount ACETAMINOPHEN IV (For NPO 100 ) 1,000 mg In Empty Bag 1 bag @ 400 mls/hr IVPB Q6HR PRN Rx#:[id number] DAPTOmycin 450 mg In 50 Sodium Chloride 0.9% 50 ml @ 100 mls/hr IVPB Q24H [facility] Rx#:[id number] Norepinephrine 32 mg In 250 Sodium Chloride 0.9% 218 ml @ 0.5 MCG/KG/MIN 25. 547 mls/hr IV .Q9H48M [facility] Rx#:[id number] Norepinephrine 4 mg In 1354.316 254 Sodium Chloride 0.9% 250 ml @ 0.03 MCG/KG/MIN 11. 665 mls/hr IV .[id number] [facility] Rx#:[id number] propofoL 1,000 mg In 62.13 89.435 Empty Bag 1 bag @ 15 MCG/ KG/MIN 9.81 mls/hr IV . [id number] [facility] Rx#:[id number] Oral 0 Tube Feeding 0 Output: Gastric Drainage 200 Urine 600 715 35 Stool 0 Other: Voiding Method Indwelling Catheter Indwelling Catheter # Bowel Movements 0 0 ABP, PAP, CO, CI - Last Documented Arterial Blood Pressure 101/35 - Exam GENERAL EXAM: Sedated, on mechanical ventilation HEENT: Normocephalic.Normal reaction of pupils, equal size. NG present NECK: soft, unable to assess for JVD. LUNGS: Equal air entry with bilateral bases diminished, fine crackles in bilateral bases. CV: S1 and S2 normal with no audible murmur, irregular rhythm. Systolic murmur. ABDOMEN: Soft, distended, hypoactive bowel sounds SKIN: No rashes, bilateral forearm skin tears with dressings clean dry and intact,chronic sacral /buttock pressure ulcers-stage II. CENTRAL NERVOUS SYSTEM: Unable to assess, patient sedated, on mechanical ventilation EXTREMITIES: Positive peripheral edema. - Labs CBC & Chem 7: 08/11/22 05:37 08/11/22 05:37 Labs: Abnormal Lab Results - Last 24 Hours (Table) 08/10/22 08/10/22 08/10/22 Range/Units 05:50 11:30 11:30 WBC (3.8-10.6) k/uL RBC (3.80-5.40) m/uL Hgb (11.4-16.0) gm/dL Hct (34.0-46.0) % MCHC (31.0-37.0) g/dL RDW (11.5-15.5) % Neutrophils # (Manual) (1.3-7.7) k/uL Metamyelocytes # (Man) (0) k/uL Nucleated RBCs (0-0) /100 WBC ABG pH (7.35-7.45) ABG pCO2 (35-45) mmHg ABG pO2 (83-108) mmHg ABG HCO3 (21-25) mmol/L ABG O2 Saturation (94-97) % Potassium 5.3 H (3.5-5.1) mmol/L Chloride (98-107) mmol/L Carbon Dioxide (22-30) mmol/L BUN (7-17) mg/dL Creatinine (0.52-1.04) mg/dL Glucose (74-99) mg/dL POC Glucose (mg/dL) (70-110) mg/dL Plasma Lactic Acid Russel 3.2 H* (0.7-2.0) mmol/L Calcium (8.4-10.2) mg/dL Magnesium 3.0 H (1.6-2.3) mg/dL 08/10/22 08/10/22 08/10/22 Range/Units 11:37 11:56 13:56 WBC (3.8-10.6) k/uL RBC (3.80-5.40) m/uL Hgb (11.4-16.0) gm/dL Hct (34.0-46.0) % MCHC (31.0-37.0) g/dL RDW (11.5-15.5) % Neutrophils # (Manual) (1.3-7.7) k/uL Metamyelocytes # (Man) (0) k/uL Nucleated RBCs (0-0) /100 WBC ABG pH 7.20 L 7.20 L (7.35-7.45) ABG pCO2 48 H 48 H (35-45) mmHg ABG pO2 295 H 219 H (83-108) mmHg ABG HCO3 19 L 19 L (21-25) mmol/L ABG O2 Saturation 99.9 H 98.3 H (94-97) % Potassium (3.5-5.1) mmol/L Chloride (98-107) mmol/L Carbon Dioxide (22-30) mmol/L BUN (7-17) mg/dL Creatinine (0.52-1.04) mg/dL Glucose (74-99) mg/dL POC Glucose (mg/dL) 162 H (70-110) mg/dL Plasma Lactic Acid Russel (0.7-2.0) mmol/L Calcium (8.4-10.2) mg/dL Magnesium (1.6-2.3) mg/dL 08/10/22 08/10/22 08/10/22 Range/Units 14:09 17:00 18:13 WBC (3.8-10.6) k/uL RBC (3.80-5.40) m/uL Hgb (11.4-16.0) gm/dL Hct (34.0-46.0) % MCHC (31.0-37.0) g/dL RDW (11.5-15.5) % Neutrophils # (Manual) (1.3-7.7) k/uL Metamyelocytes # (Man) (0) k/uL Nucleated RBCs (0-0) /100 WBC ABG pH (7.35-7.45) ABG pCO2 (35-45) mmHg ABG pO2 (83-108) mmHg ABG HCO3 (21-25) mmol/L ABG O2 Saturation (94-97) % Potassium 5.5 H (3.5-5.1) mmol/L Chloride 109 H (98-107) mmol/L Carbon Dioxide 20 L (22-30) mmol/L BUN 81 H (7-17) mg/dL Creatinine 2.74 H (0.52-1.04) mg/dL Glucose 203 H (74-99) mg/dL POC Glucose (mg/dL) (70-110) mg/dL Plasma Lactic Acid Russel 2.3 H* 3.3 H* (0.7-2.0) mmol/L Calcium 6.5 L (8.4-10.2) mg/dL Magnesium (1.6-2.3) mg/dL 08/10/22 08/10/22 08/11/22 Range/Units 18:21 21:08 00:45 WBC (3.8-10.6) k/uL RBC (3.80-5.40) m/uL Hgb (11.4-16.0) gm/dL Hct (34.0-46.0) % MCHC (31.0-37.0) g/dL RDW (11.5-15.5) % Neutrophils # (Manual) (1.3-7.7) k/uL Metamyelocytes # (Man) (0) k/uL Nucleated RBCs (0-0) /100 WBC ABG pH (7.35-7.45) ABG pCO2 (35-45) mmHg ABG pO2 (83-108) mmHg ABG HCO3 (21-25) mmol/L ABG O2 Saturation (94-97) % Potassium (3.5-5.1) mmol/L Chloride (98-107) mmol/L Carbon Dioxide (22-30) mmol/L BUN (7-17) mg/dL Creatinine (0.52-1.04) mg/dL Glucose (74-99) mg/dL POC Glucose (mg/dL) 393 H (70-110) mg/dL Plasma Lactic Acid Russel 2.9 H* 2.5 H* (0.7-2.0) mmol/L Calcium (8.4-10.2) mg/dL Magnesium (1.6-2.3) mg/dL 08/11/22 08/11/22 08/11/22 Range/Units 00:55 05:34 05:37 WBC (3.8-10.6) k/uL RBC (3.80-5.40) m/uL Hgb (11.4-16.0) gm/dL Hct (34.0-46.0) % MCHC (31.0-37.0) g/dL RDW (11.5-15.5) % Neutrophils # (Manual) (1.3-7.7) k/uL Metamyelocytes # (Man) (0) k/uL Nucleated RBCs (0-0) /100 WBC ABG pH (7.35-7.45) ABG pCO2 (35-45) mmHg ABG pO2 (83-108) mmHg ABG HCO3 (21-25) mmol/L ABG O2 Saturation (94-97) % Potassium (3.5-5.1) mmol/L Chloride 109 H (98-107) mmol/L Carbon Dioxide (22-30) mmol/L BUN 79 H (7-17) mg/dL Creatinine 2.74 H (0.52-1.04) mg/dL Glucose 221 H (74-99) mg/dL POC Glucose (mg/dL) 234 H 255 H (70-110) mg/dL Plasma Lactic Acid Russel (0.7-2.0) mmol/L Calcium 5.8 L* (8.4-10.2) mg/dL Magnesium (1.6-2.3) mg/dL 08/11/22 08/11/22 08/11/22 Range/Units 05:37 05:37 05:48 WBC 12.2 H (3.8-10.6) k/uL RBC 3.25 L (3.80-5.40) m/uL Hgb 8.6 L (11.4-16.0) gm/dL Hct 28.4 L (34.0-46.0) % MCHC 30.2 L (31.0-37.0) g/dL RDW 16.0 H (11.5-15.5) % Neutrophils # (Manual) 8.50 H (1.3-7.7) k/uL Metamyelocytes # (Man) 0.49 H (0) k/uL Nucleated RBCs 1 H (0-0) /100 WBC ABG pH 7.30 L (7.35-7.45) ABG pCO2 (35-45) mmHg ABG pO2 (83-108) mmHg ABG HCO3 (21-25) mmol/L ABG O2 Saturation (94-97) % Potassium (3.5-5.1) mmol/L Chloride (98-107) mmol/L Carbon Dioxide (22-30) mmol/L BUN (7-17) mg/dL Creatinine (0.52-1.04) mg/dL Glucose (74-99) mg/dL POC Glucose (mg/dL) (70-110) mg/dL Plasma Lactic Acid Russel 3.2 H* (0.7-2.0) mmol/L Calcium (8.4-10.2) mg/dL Magnesium (1.6-2.3) mg/dL Microbiology - Last 24 Hours (Table) 08/08/22 13:10 Urine Culture - Final Urine,Voided Enterococcus faecalis Pseudomonas aeruginosa 08/09/22 14:19 Blood Culture - Preliminary Blood No Growth after 24 hours 08/08/22 13:00 Blood Culture - Preliminary Blood No Growth after 48 hours 08/08/22 13:30 Blood Culture - Final Blood Assessment and Plan Assessment: Sepsis secondary to acute UTI, cultures reporting enterococcus faecalis and Pseudomonas aeruginosa, (in a patient with history of urinary retention, recurrent UTIs, most recently with Klebsiella pneumoniae and enterococcus cloacae.) And possibly related to GNB bacteremia, possibly related to right lower lobe pneumonia-pulmonary reports chronic changes of the right lower lobe and small right pleural effusion. Septic shock secondary to acute UTI with possible acute bacteremia, one of two blood cultures reporting GNB, possibly contaminant. Repeat cultures pending Hypotension secondary to the above, pressor dependent Acute on chronic hypoxic respiratory failure, ventilator dependent, wears 2 L nasal cannula O2 ATC at home, related to possible acute chronic CHF exacerbati on, diastolic dysfunction Acute on CKD III, secondary to ATN related to the above Hyperkalemia secondary to the above Metabolic acidosis, on bicarb drip Acute metabolic encephalopathy secondary to the above Abdominal pain, constipation, last bowel movement reported 08/05.Films reviewed by general surgery, reporting sigmoid volvulus. Recommending conservative management. Syncope, possibly vasovagal, multifactorial, secondary to all the above Acute metabolic encephalopathy, altered mental status, secondary to all the above Lactic acidosis Leukocytosis, currently normalized Diabetes mellitus, family reports hyperglycemic at home, controlled IP, A1c 6. Recent COVID-19 infection, 06/22 COPD Chronic atrial fibrillation, anticoagulated with Eliquis-on hold Valvular heart disease, moderate aortic stenosis, preserved LV function Chronic anemia Generalized weakness, gait dysfunction, multiple falls recently reported, recently discharged from [facility] subacute rehab. 08/06/22. History of CVA, TIA History of Hypertension Hyperlipidemia Hypothyroidism Morbid obesity, BMI 39.9 Plan: Continue on current medication regime ,monitoring and symptomatic treatment. Multiple consults following ;ICU management as per research laboratory technician. Antibiotics as per infectious disease. Hyperglycemic, small dose of Lantus added to med regimen , close monitoring of Accu-Cheks. Prognosis guarded given multiple complex medical issues. Family at bedside, updated, questions and concerns addressed. Support given. The impression and plan of care has been dictated as directed. : I performed a history and examination of this patient, discussed the same with the dictator. I agree with the dictator's note ,documented as a scribe. Any additional findings or plans will be noted.
--- NOTE | 2022-08-11 10:12 | P.PN ---
Subjective Patient is seen in follow-up for acute kidney injury. Creatinine stable compared to last night. Patient went into A. fib with RVR last night and was amiodarone drip. Amiodarone drip stopped by cardiology this morning. Intubated. On Levophed and vasopressin. She also received a dose of IV Lasix as well as fluid boluses last night. Urine output 15-30 mL an hour. Acidosis improved. Potassium level 5.1. Vital signs are stable. On vasopressor support. General: Resting in bed. HEENT: Intubated. NG tube noted. LUNGS: Breath sounds decreased. HEART: Irregular rate and rhythm. ABDOMEN: Soft, obese. EXTREMITITES: Trace edema. Objective - Vital Signs Vital signs: Vital Signs Temp 103.2 F H 08/11/22 08:24 Pulse 96 08/11/22 08:16 Resp 28 H 08/11/22 08:24 BP 123/39 08/11/22 08:24 Pulse Ox 94 L 08/11/22 08:24 FiO2 50 08/11/22 08:24 Intake & Output 08/10/22 08/11/22 08/11/22 18:59 06:59 18:59 Intake Total 3961.446 3163.435 340 Output Total 800 715 35 Balance 3161.446 2448.435 305 Intake: IV 2545 2520 240 .9 20 20 Calcium Gluconate in NaCl 100 100 1 gm In Saline 1 100ml. bag @ 100 mls/hr IVPB ONCE ONE Rx#:[id number] Cefepime 1 gm In Sodium 50 Chloride 0.9% 50 ml @ 12. 5 mls/hr IVPB Q12H [facility] Rx #:[id number] Dextrose 5% in Water 1, 1050 1200 100 000 ml @ 100 mls/hr IV . [id number] [facility] with Sodium Bicarb (1 Meq/ml) 150 ml Rx#:[id number] Invasive Line 1 10 Invasive Line 3 70 10 Invasive Line 5 90 30 Levofloxacin 500Mg-D5w 100 100 Pmx 500 mg In Dextrose/ Water 100 100ml.bag @ 100 mls/hr IVPB Q48H [facility] Rx# :[id number] Sodium Chloride 0.9% 1, 75 000 ml @ 75 mls/hr IV . [id number] [facility] Rx#:[id number] Sodium Chloride 0.9% 500 1000 1180 20 ml 500 ml @ 999 mls/hr IV .Q31M ONE Rx#:[id number] Intake, IV Titration 1416.446 643.435 100 Amount ACETAMINOPHEN IV (For NPO 100 ) 1,000 mg In Empty Bag 1 bag @ 400 mls/hr IVPB Q6HR PRN Rx#:[id number] DAPTOmycin 450 mg In 50 Sodium Chloride 0.9% 50 ml @ 100 mls/hr IVPB Q24H [facility] Rx#:[id number] Norepinephrine 32 mg In 250 Sodium Chloride 0.9% 218 ml @ 0.5 MCG/KG/MIN 25. 547 mls/hr IV .[id number] [facility] Rx#:[id number] Norepinephrine 4 mg In 1354.316 254 Sodium Chloride 0.9% 250 ml @ 0.03 MCG/KG/MIN 11. 665 mls/hr IV .[id number] [facility] Rx#:[id number] propofoL 1,000 mg In 62.13 89.435 Empty Bag 1 bag @ 15 MCG/ KG/MIN 9.81 mls/hr IV . [id number] [facility] Rx#:[id number] Oral 0 Tube Feeding 0 Output: Gastric Drainage 200 Urine 600 715 35 Stool 0 Other: Voiding Method Indwelling Catheter Indwelling Catheter # Bowel Movements 0 0 ABP, PAP, CO, CI - Last Documented Arterial Blood Pressure 101/35 - Labs CBC & Chem 7: 08/11/22 05:37 08/11/22 05:37 Labs: Abnormal Lab Results - Last 24 Hours (Table) 08/10/22 08/10/22 08/10/22 Range/Units 05:50 11:30 11:30 WBC (3.8-10.6) k/uL RBC (3.80-5.40) m/uL Hgb (11.4-16.0) gm/dL Hct (34.0-46.0) % MCHC (31.0-37.0) g/dL RDW (11.5-15.5) % Neutrophils # (Manual) (1.3-7.7) k/uL Metamyelocytes # (Man) (0) k/uL Nucleated RBCs (0-0) /100 WBC ABG pH (7.35-7.45) ABG pCO2 (35-45) mmHg ABG pO2 (83-108) mmHg ABG HCO3 (21-25) mmol/L ABG O2 Saturation (94-97) % Potassium 5.3 H (3.5-5.1) mmol/L Chloride (98-107) mmol/L Carbon Dioxide (22-30) mmol/L BUN (7-17) mg/dL Creatinine (0.52-1.04) mg/dL Glucose (74-99) mg/dL POC Glucose (mg/dL) (70-110) mg/dL Plasma Lactic Acid Russel 3.2 H* (0.7-2.0) mmol/L Calcium (8.4-10.2) mg/dL Magnesium 3.0 H (1.6-2.3) mg/dL 08/10/22 08/10/22 08/10/22 Range/Units 11:37 11:56 13:56 WBC (3.8-10.6) k/uL RBC (3.80-5.40) m/uL Hgb (11.4-16.0) gm/dL Hct (34.0-46.0) % MCHC (31.0-37.0) g/dL RDW (11.5-15.5) % Neutrophils # (Manual) (1.3-7.7) k/uL Metamyelocytes # (Man) (0) k/uL Nucleated RBCs (0-0) /100 WBC ABG pH 7.20 L 7.20 L (7.35-7.45) ABG pCO2 48 H 48 H (35-45) mmHg ABG pO2 295 H 219 H (83-108) mmHg ABG HCO3 19 L 19 L (21-25) mmol/L ABG O2 Saturation 99.9 H 98.3 H (94-97) % Potassium (3.5-5.1) mmol/L Chloride (98-107) mmol/L Carbon Dioxide (22-30) mmol/L BUN (7-17) mg/dL Creatinine (0.52-1.04) mg/dL Glucose (74-99) mg/dL POC Glucose (mg/dL) 162 H (70-110) mg/dL Plasma Lactic Acid Russel (0.7-2.0) mmol/L Calcium (8.4-10.2) mg/dL Magnesium (1.6-2.3) mg/dL 08/10/22 08/10/22 08/10/22 Range/Units 14:09 17:00 18:13 WBC (3.8-10.6) k/uL RBC (3.80-5.40) m/uL Hgb (11.4-16.0) gm/dL Hct (34.0-46.0) % MCHC (31.0-37.0) g/dL RDW (11.5-15.5) % Neutrophils # (Manual) (1.3-7.7) k/uL Metamyelocytes # (Man) (0) k/uL Nucleated RBCs (0-0) /100 WBC ABG pH (7.35-7.45) ABG pCO2 (35-45) mmHg ABG pO2 (83-108) mmHg ABG HCO3 (21-25) mmol/L ABG O2 Saturation (94-97) % Potassium 5.5 H (3.5-5.1) mmol/L Chloride 109 H (98-107) mmol/L Carbon Dioxide 20 L (22-30) mmol/L BUN 81 H (7-17) mg/dL Creatinine 2.74 H (0.52-1.04) mg/dL Glucose 203 H (74-99) mg/dL POC Glucose (mg/dL) (70-110) mg/dL Plasma Lactic Acid Russel 2.3 H* 3.3 H* (0.7-2.0) mmol/L Calcium 6.5 L (8.4-10.2) mg/dL Magnesium (1.6-2.3) mg/dL 08/10/22 08/10/22 08/11/22 Range/Units 18:21 21:08 00:45 WBC (3.8-10.6) k/uL RBC (3.80-5.40) m/uL Hgb (11.4-16.0) gm/dL Hct (34.0-46.0) % MCHC (31.0-37.0) g/dL RDW (11.5-15.5) % Neutrophils # (Manual) (1.3-7.7) k/uL Metamyelocytes # (Man) (0) k/uL Nucleated RBCs (0-0) /100 WBC ABG pH (7.35-7.45) ABG pCO2 (35-45) mmHg ABG pO2 (83-108) mmHg ABG HCO3 (21-25) mmol/L ABG O2 Saturation (94-97) % Potassium (3.5-5.1) mmol/L Chloride (98-107) mmol/L Carbon Dioxide (22-30) mmol/L BUN (7-17) mg/dL Creatinine (0.52-1.04) mg/dL Glucose (74-99) mg/dL POC Glucose (mg/dL) 393 H (70-110) mg/dL Plasma Lactic Acid Russel 2.9 H* 2.5 H* (0.7-2.0) mmol/L Calcium (8.4-10.2) mg/dL Magnesium (1.6-2.3) mg/dL 08/11/22 08/11/22 08/11/22 Range/Units 00:55 05:34 05:37 WBC (3.8-10.6) k/uL RBC (3.80-5.40) m/uL Hgb (11.4-16.0) gm/dL Hct (34.0-46.0) % MCHC (31.0-37.0) g/dL RDW (11.5-15.5) % Neutrophils # (Manual) (1.3-7.7) k/uL Metamyelocytes # (Man) (0) k/uL Nucleated RBCs (0-0) /100 WBC ABG pH (7.35-7.45) ABG pCO2 (35-45) mmHg ABG pO2 (83-108) mmHg ABG HCO3 (21-25) mmol/L ABG O2 Saturation (94-97) % Potassium (3.5-5.1) mmol/L Chloride 109 H (98-107) mmol/L Carbon Dioxide (22-30) mmol/L BUN 79 H (7-17) mg/dL Creatinine 2.74 H (0.52-1.04) mg/dL Glucose 221 H (74-99) mg/dL POC Glucose (mg/dL) 234 H 255 H (70-110) mg/dL Plasma Lactic Acid Russel (0.7-2.0) mmol/L Calcium 5.8 L* (8.4-10.2) mg/dL Magnesium (1.6-2.3) mg/dL 08/11/22 08/11/22 08/11/22 Range/Units 05:37 05:37 05:48 WBC 12.2 H (3.8-10.6) k/uL RBC 3.25 L (3.80-5.40) m/uL Hgb 8.6 L (11.4-16.0) gm/dL Hct 28.4 L (34.0-46.0) % MCHC 30.2 L (31.0-37.0) g/dL RDW 16.0 H (11.5-15.5) % Neutrophils # (Manual) 8.50 H (1.3-7.7) k/uL Metamyelocytes # (Man) 0.49 H (0) k/uL Nucleated RBCs 1 H (0-0) /100 WBC ABG pH 7.30 L (7.35-7.45) ABG pCO2 (35-45) mmHg ABG pO2 (83-108) mmHg ABG HCO3 (21-25) mmol/L ABG O2 Saturation (94-97) % Potassium (3.5-5.1) mmol/L Chloride (98-107) mmol/L Carbon Dioxide (22-30) mmol/L BUN (7-17) mg/dL Creatinine (0.52-1.04) mg/dL Glucose (74-99) mg/dL POC Glucose (mg/dL) (70-110) mg/dL Plasma Lactic Acid Russel 3.2 H* (0.7-2.0) mmol/L Calcium (8.4-10.2) mg/dL Magnesium (1.6-2.3) mg/dL Microbiology - Last 24 Hours (Table) 08/08/22 13:10 Urine Culture - Final Urine,Voided Enterococcus faecalis Pseudomonas aeruginosa 08/09/22 14:19 Blood Culture - Preliminary Blood No Growth after 24 hours 08/08/22 13:00 Blood Culture - Preliminary Blood No Growth after 48 hours Assessment and Plan Plan: Assessment: 1. Acute kidney injury secondary to ATN secondary to septic shock. Baseline creatinine near 0.8 from June 2022 - 2.74 today. No hydronephrosis noted on CAT scan. 2. Septic shock secondary to UTI and bacteremia. On antibiotics and vasopressor support. 3. Metabolic acidosis secondary to acute kidney injury and IV. On bicarb drip. Improved. 4. Hyperkalemia secondary to acute kidney injury and metabolic acidosis. Improved. 5. Acute hypoxic respiratory failure. 6. A. fib with RVR. Status post amiodarone drip. Cardiology following. 7. Sigmoid volvulus. He has NG tube. Surgery following. Plan: Maintain bicarbonate for now. Status post IV Lasix and fluid boluses overnight. Wean FiO2 and vasopressors. Avoid nephrotoxins. Follow up cortisol level. Continue to assess daily for need for renal replacement therapy. Patient is hemodynamically quite unstable at this time.
--- NOTE | 2022-08-11 11:25 | P.PN ---
Subjective Progress Note Date: 08/11/22 This is a 87-year-old female patient with a known history of coronary artery disease with previous stent placements, hypothyroidism, morbid obesity, multiple orthopedic surgeries, congestive heart failure, diabetes bella, hypertension, hyperlipidemia, osteoarthritis, obstructive sleep apnea on BiPAP, CVA/TIA, oxygen dependent and she was recently discharged from here to [facility] on the [place] and was just home for 3 days when she developed a syncopal episode yesterday. Her that may related to low blood sugar and try to give her oral issues which she vomited. She was brought into the emergency room yesterday. She is seen today in consultation. She remains in the emergency department. She is sitting up in bed. She is basically just moaning and groaning. Her family is at the bedside and provides him permission. She was initially placed on BiPAP. She is currently on 6 L high flow nasal cannula with O2 saturations in the 90s. Afebrile. Somewhat hypotensive. Blood culture reveals no growth to date. Urine culture pending. White count 19.1. Hemoglobin 8.0. Sodium 136. Potassium 4.6. Bicarb 17. BUN 66. Creatinine 2.27. Glucose 145. D-dimer 4.73. ProBNP 426. Troponin negative 1. CT angiogram ruled out pulmonary embolism. There is evidence of cardiomegaly with pulmonary vascular congestion. Scattered airspace opacities more consolidation in the right lung base. Rule out aspiration. Computed tomography scan of the abdomen and pelvis revealed extensive stool burden throughout the colon. 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 Today's chest x-ray shows Nasogastric tube in place. Mild cardiomegaly with bibasilar acute infiltrate and/or atelectasis. She's been initiated on Symbicort, DuoNeb inhalations, antibiotics in the form of Levaquin. She is anticoagulated with Eliquis. The patient is seen today for per 2022 in follow-up in the intensive care unit. Just after midnight they called an a team on her due to her being obtunded and hypotensive. She was on the sixth liter Ventimask and they do arterial blood gases that revealed a pO2 of 136, pCO2 31, pH 7.28. She was placed on BiPAP 12/5 and 50% and transferred into the intensive care unit. She received 3 A of sodium bicarb. She has D5W with 3 A of sodium bicarb at 75 ML's per hour. She is on norepinephrine at 27 mcg/m. Vasopressin at 0.03 units per minute. 0.9 normal saline at 20 mL per hour. She did undergo central line placement and arterial line placement. Follow-up blood gases reveal a pO2 of 295. PCO2 of 48. PH is 7.20 100% FiO2. White count 8.7. Hemoglobin 8.2. Platelets 311. Sodium 134. Potassium 6.3. Chloride 110. Bicarb 13. BUN 81. Creatinine 2.68. Glucose 134. Pro-calcitonin 11.0. She remains on bronchodilators. Continued on antibiotics in the form of Levaquin and cefepime. Her culture positive for group D enterococcus and gram-negative bacilli. Blood culture reveals no growth. The patient is seen today 08/11/2022 in follow-up in the intensive care unit. She did have progressive shortness of breath and hypoxemia and was subsequently intubated and placed on mechanical ventilator yesterday. He is currently on assist control mode with a rate of 20, tidal volume 400, FiO2 50% PEEP of 5. Morning blood gases revealed a PaO2 of 99, pCO2 45, pH 7.30 that was on 60% FiO2. She developed atrial fibrillation requiring amiodarone as well. She is hypotensive and requiring norepinephrine at 55 mcg/m, vasopressin at 0.04 units per minute. She remains on D5W with 3 A of bicarbonate 100 ML's per hour. 0.9 normal saline at 20 ML's per hour. She remains on antibiotics in the form of Levaquin, cefepime and daptomycin. Urine culture is positive for Enterococcus faecalis and Pseudomonas aeruginosa. Blood cultures showing no growth. Chest x-ray reveals no significant change. Stable appearance of the cardiomediastinal structures. Pleural effusion unchanged. No change in bibasilar opacities. White count 12.2. Hemoglobin 8.6. Platelets 349. Sodium 139. Potassium 5.1. Bicarb 22. BUN 79. Creatinine 2.74. Glucose 221. Lactic acid 3.2. Calcium 5.8. Cortisol 45. She is continued on DuoNeb inhalations, Pulmicort and Perforomist inhalations. Objective - Vital Signs Vital signs: Vital Signs Temp 103.1 F H 08/11/22 10:45 Pulse 99 08/11/22 11:00 Resp 31 H 08/11/22 11:00 BP 123/39 08/11/22 08:24 Pulse Ox 95 08/11/22 11:00 FiO2 50 08/11/22 08:24 Intake & Output 08/10/22 08/11/22 08/11/22 18:59 06:59 18:59 Intake Total 3961.446 3163.435 1400 Output Total 800 715 170 Balance 3161.446 2448.435 1230 Intake: IV 2545 2520 1300 .9 20 80 ACETAMINOPHEN IV (For NPO 100 ) 1,000 mg In Empty Bag 1 bag @ 400 mls/hr IVPB Q6HR PRN Rx#:[id number] Calcium Gluconate in NaCl 100 100 1 gm In Saline 1 100ml. bag @ 100 mls/hr IVPB ONCE ONE Rx#:[id number] Cefepime 1 gm In Sodium 50 Chloride 0.9% 50 ml @ 12. 5 mls/hr IVPB Q12H [facility] Rx #:[id number] Dextrose 5% in Water 1, 1050 1200 500 000 ml @ 100 mls/hr IV . [id number] [facility] with Sodium Bicarb (1 Meq/ml) 150 ml Rx#:[id number] Invasive Line 1 10 Invasive Line 3 70 10 Invasive Line 5 90 30 Levofloxacin 500Mg-D5w 100 100 Pmx 500 mg In Dextrose/ Water 100 100ml.bag @ 100 mls/hr IVPB Q48H [facility] Rx# :[id number] Sodium Chloride 0.9% 1, 75 000 ml @ 75 mls/hr IV . [id number] [facility] Rx#:[id number] Sodium Chloride 0.9% 500 1000 1180 20 ml 500 ml @ 999 mls/hr IV .Q31M ONE Rx#:[id number] Sodium Chloride 0.9% 500 500 ml 500 ml @ 999 mls/hr IV .Q31M ONE Rx#:[id number] Intake, IV Titration 1416.446 643.435 100 Amount ACETAMINOPHEN IV (For NPO 100 ) 1,000 mg In Empty Bag 1 bag @ 400 mls/hr IVPB Q6HR PRN Rx#:[id number] DAPTOmycin 450 mg In 50 Sodium Chloride 0.9% 50 ml @ 100 mls/hr IVPB Q24H [facility] Rx#:[id number] Norepinephrine 32 mg In 250 Sodium Chloride 0.9% 218 ml @ 0.5 MCG/KG/MIN 25. 547 mls/hr IV .[id number] [facility] Rx#:[id number] Norepinephrine 4 mg In 1354.316 254 Sodium Chloride 0.9% 250 ml @ 0.03 MCG/KG/MIN 11. 665 mls/hr IV .[id number] [facility] Rx#:[id number] propofoL 1,000 mg In 62.13 89.435 Empty Bag 1 bag @ 15 MCG/ KG/MIN 9.81 mls/hr IV . [id number] [facility] Rx#:[id number] Oral 0 Tube Feeding 0 Output: Gastric Drainage 200 Urine 600 715 170 Stool 0 Other: Voiding Method Indwelling Catheter Indwelling Catheter # Bowel Movements 0 0 ABP, PAP, CO, CI - Last Documented Arterial Blood Pressure 129/39 - Exam GENERAL EXAM: Intubated, sedated, 87-year-old morbidly obese female, on 50% FiO2 and a PEEP of 5. HEAD: Normocephalic. EYES: Sluggish reaction of pupils, equal size. NOSE: Nasogastric tube secured in place. Clear with pink turbinates. THROAT: Oral endotracheal tube in place. NECK: No masses, no JVD. CHEST: No chest wall deformity. LUNGS: Equal air entry with crackles in the bilateral bases. CVS: S1 and S2 normal with no audible murmur, irregular rhythm. ABDOMEN: No hepatosplenomegaly, normal bowel sounds, no guarding or rigidity. SPINE: No scoliosis or deformity SKIN: No rashes CENTRAL NERVOUS SYSTEM: Sedated, tone is normal in all 4 extremities. EXTREMITIES: There is 1-2+ peripheral edema. Changes of chronic venous stasis. No clubbing, no cyanosis. Peripheral pulses are intact. - Labs CBC & Chem 7: 08/11/22 05:37 08/11/22 05:37 Labs: Abnormal Lab Results - Last 24 Hours (Table) 08/10/22 08/10/22 08/10/22 Range/Units 11:30 11:30 11:37 WBC (3.8-10.6) k/uL RBC (3.80-5.40) m/uL Hgb (11.4-16.0) gm/dL Hct (34.0-46.0) % MCHC (31.0-37.0) g/dL RDW (11.5-15.5) % Neutrophils # (Manual) (1.3-7.7) k/uL Metamyelocytes # (Man) (0) k/uL Nucleated RBCs (0-0) /100 WBC ABG pH 7.20 L (7.35-7.45) ABG pCO2 48 H (35-45) mmHg ABG pO2 295 H (83-108) mmHg ABG HCO3 19 L (21-25) mmol/L ABG O2 Saturation 99.9 H (94-97) % Potassium 5.3 H (3.5-5.1) mmol/L Chloride (98-107) mmol/L Carbon Dioxide (22-30) mmol/L BUN (7-17) mg/dL Creatinine (0.52-1.04) mg/dL Glucose (74-99) mg/dL POC Glucose (mg/dL) (70-110) mg/dL Plasma Lactic Acid Russel 3.2 H* (0.7-2.0) mmol/L Calcium (8.4-10.2) mg/dL 08/10/22 08/10/22 08/10/22 Range/Units 11:56 13:56 14:09 WBC (3.8-10.6) k/uL RBC (3.80-5.40) m/uL Hgb (11.4-16.0) gm/dL Hct (34.0-46.0) % MCHC (31.0-37.0) g/dL RDW (11.5-15.5) % Neutrophils # (Manual) (1.3-7.7) k/uL Metamyelocytes # (Man) (0) k/uL Nucleated RBCs (0-0) /100 WBC ABG pH 7.20 L (7.35-7.45) ABG pCO2 48 H (35-45) mmHg ABG pO2 219 H (83-108) mmHg ABG HCO3 19 L (21-25) mmol/L ABG O2 Saturation 98.3 H (94-97) % Potassium (3.5-5.1) mmol/L Chloride (98-107) mmol/L Carbon Dioxide (22-30) mmol/L BUN (7-17) mg/dL Creatinine (0.52-1.04) mg/dL Glucose (74-99) mg/dL POC Glucose (mg/dL) 162 H (70-110) mg/dL Plasma Lactic Acid Russel 2.3 H* (0.7-2.0) mmol/L Calcium (8.4-10.2) mg/dL 08/10/22 08/10/22 08/10/22 Range/Units 17:00 18:13 18:21 WBC (3.8-10.6) k/uL RBC (3.80-5.40) m/uL Hgb (11.4-16.0) gm/dL Hct (34.0-46.0) % MCHC (31.0-37.0) g/dL RDW (11.5-15.5) % Neutrophils # (Manual) (1.3-7.7) k/uL Metamyelocytes # (Man) (0) k/uL Nucleated RBCs (0-0) /100 WBC ABG pH (7.35-7.45) ABG pCO2 (35-45) mmHg ABG pO2 (83-108) mmHg ABG HCO3 (21-25) mmol/L ABG O2 Saturation (94-97) % Potassium 5.5 H (3.5-5.1) mmol/L Chloride 109 H (98-107) mmol/L Carbon Dioxide 20 L (22-30) mmol/L BUN 81 H (7-17) mg/dL Creatinine 2.74 H (0.52-1.04) mg/dL Glucose 203 H (74-99) mg/dL POC Glucose (mg/dL) 393 H (70-110) mg/dL Plasma Lactic Acid Russel 3.3 H* (0.7-2.0) mmol/L Calcium 6.5 L (8.4-10.2) mg/dL 08/10/22 08/11/22 08/11/22 Range/Units 21:08 00:45 00:55 WBC (3.8-10.6) k/uL RBC (3.80-5.40) m/uL Hgb (11.4-16.0) gm/dL Hct (34.0-46.0) % MCHC (31.0-37.0) g/dL RDW (11.5-15.5) % Neutrophils # (Manual) (1.3-7.7) k/uL Metamyelocytes # (Man) (0) k/uL Nucleated RBCs (0-0) /100 WBC ABG pH (7.35-7.45) ABG pCO2 (35-45) mmHg ABG pO2 (83-108) mmHg ABG HCO3 (21-25) mmol/L ABG O2 Saturation (94-97) % Potassium (3.5-5.1) mmol/L Chloride (98-107) mmol/L Carbon Dioxide (22-30) mmol/L BUN (7-17) mg/dL Creatinine (0.52-1.04) mg/dL Glucose (74-99) mg/dL POC Glucose (mg/dL) 234 H (70-110) mg/dL Plasma Lactic Acid Russel 2.9 H* 2.5 H* (0.7-2.0) mmol/L Calcium (8.4-10.2) mg/dL 08/11/22 08/11/22 08/11/22 Range/Units 05:34 05:37 05:37 WBC 12.2 H (3.8-10.6) k/uL RBC 3.25 L (3.80-5.40) m/uL Hgb 8.6 L (11.4-16.0) gm/dL Hct 28.4 L (34.0-46.0) % MCHC 30.2 L (31.0-37.0) g/dL RDW 16.0 H (11.5-15.5) % Neutrophils # (Manual) 8.50 H (1.3-7.7) k/uL Metamyelocytes # (Man) 0.49 H (0) k/uL Nucleated RBCs 1 H (0-0) /100 WBC ABG pH (7.35-7.45) ABG pCO2 (35-45) mmHg ABG pO2 (83-108) mmHg ABG HCO3 (21-25) mmol/L ABG O2 Saturation (94-97) % Potassium (3.5-5.1) mmol/L Chloride 109 H (98-107) mmol/L Carbon Dioxide (22-30) mmol/L BUN 79 H (7-17) mg/dL Creatinine 2.74 H (0.52-1.04) mg/dL Glucose 221 H (74-99) mg/dL POC Glucose (mg/dL) 255 H (70-110) mg/dL Plasma Lactic Acid Russel (0.7-2.0) mmol/L Calcium 5.8 L* (8.4-10.2) mg/dL 08/11/22 08/11/22 Range/Units 05:37 05:48 WBC (3.8-10.6) k/uL RBC (3.80-5.40) m/uL Hgb (11.4-16.0) gm/dL Hct (34.0-46.0) % MCHC (31.0-37.0) g/dL RDW (11.5-15.5) % Neutrophils # (Manual) (1.3-7.7) k/uL Metamyelocytes # (Man) (0) k/uL Nucleated RBCs (0-0) /100 WBC ABG pH 7.30 L (7.35-7.45) ABG pCO2 (35-45) mmHg ABG pO2 (83-108) mmHg ABG HCO3 (21-25) mmol/L ABG O2 Saturation (94-97) % Potassium (3.5-5.1) mmol/L Chloride (98-107) mmol/L Carbon Dioxide (22-30) mmol/L BUN (7-17) mg/dL Creatinine (0.52-1.04) mg/dL Glucose (74-99) mg/dL POC Glucose (mg/dL) (70-110) mg/dL Plasma Lactic Acid Russel 3.2 H* (0.7-2.0) mmol/L Calcium (8.4-10.2) mg/dL Microbiology - Last 24 Hours (Table) 08/08/22 13:10 Urine Culture - Final Urine,Voided Enterococcus faecalis Pseudomonas aeruginosa 08/09/22 14:19 Blood Culture - Preliminary Blood No Growth after 24 hours 08/08/22 13:00 Blood Culture - Preliminary Blood No Growth after 48 hours Assessment and Plan Assessment: Syncope suspect secondary to hypotension related to urinary tract infection, sepsis. Urine culture positive for Enterococcus faecalis and Pseudomonas aeruginosa Septic shock secondary to above, now requiring pressor support in the form of norepinephrine and vasopressin Acute on chronic hypoxemic respiratory failure secondary to suspected diastolic congestive heart failure. The patient did deteriorate last evening on 08/10/2022 requiring intubation mechanical ventilatory support. Leukocytosis secondary to urinary tract infection Previous history of urinary tract infections Acute on chronic kidney disease Recent COVID-19 infection History of valvular heart disease with aortic valve stenosis and preserved LV function Chronic changes in the right lower lobe with small right pleural effusion Acute on chronic anemia my current hemoglobin 8.6 History of chronic obstructive pulmonary disease History of prior tobacco dependence History of diastolic congestive heart failure History of coronary disease with multiple stent placements History of CVA/TIA History of diabetes mellitus Morbid obesity Hypertension Hyperlipidemia Hypothyroidism Poor overall functional performance based on the above-mentioned multiple comorb idities with recent stay and ECF Plan: The patient was seen and evaluated Chest x-ray, ABGs, labs and medications reviewed. Remains on the mechanical ventilator, FiO2 decreased to 50% Continue Levaquin, cefepime, daptomycin Remains full code per 's request Overall prognosis remains poor We will continue to follow and make further recommendations based on her clinical status I have personally seen and examined the patient, performed the documentation and the assessment and plan as written. Number of minutes spent on the visit: 15.
[2022-08-11] MEDS: INSULIN DETEMIR (LEVEMIR) 100 UNIT/ML SYR SQ SCH (11:34)
[2022-08-11 11:38] LABS: Glucose,Whole Blood 263 mg/dL (70-110)
--- NOTE | 2022-08-11 12:43 | P.PN ---
Subjective Progress Note Date: 08/11/22 Principal diagnosis: Sepsis/septic shock Patient is a 87-year-old female with multiple comorbidities presented to the hospital with a syncopal episode weakness subsequently hypotension, sepsis requiring transfer to the ICU and intubation on the vent. On today's evaluation that is 08/11/2022, the patient did spike a fever this morning of 103.2F, the patient is on max pressor support to maintain her blood pressure per the nursing staff, FiO2 is currently at 50%, no significant purulent secretions through the ET, there is suspicious for possible abdominal sepsis however the patient is too unstable to go to the OR for surgery Objective - Vital Signs Vital signs: Vital Signs Temp 99.4 F 08/11/22 11:42 Pulse 108 H 08/11/22 11:47 Resp 31 H 08/11/22 11:00 BP 123/39 08/11/22 08:24 Pulse Ox 95 08/11/22 11:00 FiO2 50 08/11/22 11:25 Intake & Output 08/10/22 08/11/22 08/11/22 18:59 06:59 18:59 Intake Total 3961.446 3163.435 1474.883 Output Total 800 715 170 Balance 3161.446 2448.435 1304.883 Intake: IV 2545 2520 1300 .9 20 80 ACETAMINOPHEN IV (For NPO 100 ) 1,000 mg In Empty Bag 1 bag @ 400 mls/hr IVPB Q6HR PRN Rx#:[id number] Calcium Gluconate in NaCl 100 100 1 gm In Saline 1 100ml. bag @ 100 mls/hr IVPB ONCE ONE Rx#:[id number] Cefepime 1 gm In Sodium 50 Chloride 0.9% 50 ml @ 12. 5 mls/hr IVPB Q12H [facility] Rx #:[id number] Dextrose 5% in Water 1, 1050 1200 500 000 ml @ 100 mls/hr IV . [id number] [facility] with Sodium Bicarb (1 Meq/ml) 150 ml Rx#:[id number] Invasive Line 1 10 Invasive Line 3 70 10 Invasive Line 5 90 30 Levofloxacin 500Mg-D5w 100 100 Pmx 500 mg In Dextrose/ Water 100 100ml.bag @ 100 mls/hr IVPB Q48H [facility] Rx# :[id number] Sodium Chloride 0.9% 1, 75 000 ml @ 75 mls/hr IV . [id number] [facility] Rx#:[id number] Sodium Chloride 0.9% 500 1000 1180 20 ml 500 ml @ 999 mls/hr IV .Q31M [facility] Rx#:[id number] Sodium Chloride 0.9% 500 500 ml 500 ml @ 999 mls/hr IV .Q31M [facility] Rx#:[id number] Intake, IV Titration 1416.446 643.435 174.883 Amount ACETAMINOPHEN IV (For NPO 100 ) 1,000 mg In Empty Bag 1 bag @ 400 mls/hr IVPB Q6HR PRN Rx#:[id number] DAPTOmycin 450 mg In 50 Sodium Chloride 0.9% 50 ml @ 100 mls/hr IVPB Q24H [facility] Rx#:[id number] Norepinephrine 32 mg In 250 Sodium Chloride 0.9% 218 ml @ 0.5 MCG/KG/MIN 25. 547 mls/hr IV .[id number] [facility] Rx#:[id number] Norepinephrine 4 mg In 1354.316 254 Sodium Chloride 0.9% 250 ml @ 0.03 MCG/KG/MIN 11. 665 mls/hr IV .[id number] [facility] Rx#:[id number] propofoL 1,000 mg In 62.13 89.435 74.883 Empty Bag 1 bag @ 15 MCG/ KG/MIN 9.81 mls/hr IV . [id number] [facility] Rx#:[id number] Oral 0 Tube Feeding 0 Output: Gastric Drainage 200 Urine 600 715 170 Stool 0 Other: Voiding Method Indwelling Catheter Indwelling Catheter Indwelling Catheter # Bowel Movements 0 0 ABP, PAP, CO, CI - Last Documented Arterial Blood Pressure 129/39 - Exam GENERAL DESCRIPTION: An elderly female intubated on the vent RESPIRATORY SYSTEM: Unlabored breathing , decreased breath sounds at bases HEART: S1 S2 regular rate and rhythm , ABDOMEN: Soft , no tenderness EXTREMITIES: Lower extremity swelling no redness - Labs CBC & Chem 7: 08/11/22 05:37 08/11/22 05:37 Labs: Abnormal Lab Results - Last 24 Hours (Table) 08/10/22 08/10/22 08/10/22 Range/Units 11:30 11:30 11:56 WBC (3.8-10.6) k/uL RBC (3.80-5.40) m/uL Hgb (11.4-16.0) gm/dL Hct (34.0-46.0) % MCHC (31.0-37.0) g/dL RDW (11.5-15.5) % Neutrophils # (Manual) (1.3-7.7) k/uL Metamyelocytes # (Man) (0) k/uL Nucleated RBCs (0-0) /100 WBC ABG pH (7.35-7.45) ABG pCO2 (35-45) mmHg ABG pO2 (83-108) mmHg ABG HCO3 (21-25) mmol/L ABG O2 Saturation (94-97) % Potassium 5.3 H (3.5-5.1) mmol/L Chloride (98-107) mmol/L Carbon Dioxide (22-30) mmol/L BUN (7-17) mg/dL Creatinine (0.52-1.04) mg/dL Glucose (74-99) mg/dL POC Glucose (mg/dL) 162 H (70-110) mg/dL Plasma Lactic Acid Russel 3.2 H* (0.7-2.0) mmol/L Calcium (8.4-10.2) mg/dL 08/10/22 08/10/22 08/10/22 Range/Units 13:56 14:09 17:00 WBC (3.8-10.6) k/uL RBC (3.80-5.40) m/uL Hgb (11.4-16.0) gm/dL Hct (34.0-46.0) % MCHC (31.0-37.0) g/dL RDW (11.5-15.5) % Neutrophils # (Manual) (1.3-7.7) k/uL Metamyelocytes # (Man) (0) k/uL Nucleated RBCs (0-0) /100 WBC ABG pH 7.20 L (7.35-7.45) ABG pCO2 48 H (35-45) mmHg ABG pO2 219 H (83-108) mmHg ABG HCO3 19 L (21-25) mmol/L ABG O2 Saturation 98.3 H (94-97) % Potassium 5.5 H (3.5-5.1) mmol/L Chloride 109 H (98-107) mmol/L Carbon Dioxide 20 L (22-30) mmol/L BUN 81 H (7-17) mg/dL Creatinine 2.74 H (0.52-1.04) mg/dL Glucose 203 H (74-99) mg/dL POC Glucose (mg/dL) (70-110) mg/dL Plasma Lactic Acid Russel 2.3 H* (0.7-2.0) mmol/L Calcium 6.5 L (8.4-10.2) mg/dL 08/10/22 08/10/22 08/10/22 Range/Units 18:13 18:21 21:08 WBC (3.8-10.6) k/uL RBC (3.80-5.40) m/uL Hgb (11.4-16.0) gm/dL Hct (34.0-46.0) % MCHC (31.0-37.0) g/dL RDW (11.5-15.5) % Neutrophils # (Manual) (1.3-7.7) k/uL Metamyelocytes # (Man) (0) k/uL Nucleated RBCs (0-0) /100 WBC ABG pH (7.35-7.45) ABG pCO2 (35-45) mmHg ABG pO2 (83-108) mmHg ABG HCO3 (21-25) mmol/L ABG O2 Saturation (94-97) % Potassium (3.5-5.1) mmol/L Chloride (98-107) mmol/L Carbon Dioxide (22-30) mmol/L BUN (7-17) mg/dL Creatinine (0.52-1.04) mg/dL Glucose (74-99) mg/dL POC Glucose (mg/dL) 393 H (70-110) mg/dL Plasma Lactic Acid Russel 3.3 H* 2.9 H* (0.7-2.0) mmol/L Calcium (8.4-10.2) mg/dL 08/11/22 08/11/22 08/11/22 Range/Units 00:45 00:55 05:34 WBC (3.8-10.6) k/uL RBC (3.80-5.40) m/uL Hgb (11.4-16.0) gm/dL Hct (34.0-46.0) % MCHC (31.0-37.0) g/dL RDW (11.5-15.5) % Neutrophils # (Manual) (1.3-7.7) k/uL Metamyelocytes # (Man) (0) k/uL Nucleated RBCs (0-0) /100 WBC ABG pH (7.35-7.45) ABG pCO2 (35-45) mmHg ABG pO2 (83-108) mmHg ABG HCO3 (21-25) mmol/L ABG O2 Saturation (94-97) % Potassium (3.5-5.1) mmol/L Chloride (98-107) mmol/L Carbon Dioxide (22-30) mmol/L BUN (7-17) mg/dL Creatinine (0.52-1.04) mg/dL Glucose (74-99) mg/dL POC Glucose (mg/dL) 234 H 255 H (70-110) mg/dL Plasma Lactic Acid Russel 2.5 H* (0.7-2.0) mmol/L Calcium (8.4-10.2) mg/dL 08/11/22 08/11/22 08/11/22 Range/Units 05:37 05:37 05:37 WBC 12.2 H (3.8-10.6) k/uL RBC 3.25 L (3.80-5.40) m/uL Hgb 8.6 L (11.4-16.0) gm/dL Hct 28.4 L (34.0-46.0) % MCHC 30.2 L (31.0-37.0) g/dL RDW 16.0 H (11.5-15.5) % Neutrophils # (Manual) 8.50 H (1.3-7.7) k/uL Metamyelocytes # (Man) 0.49 H (0) k/uL Nucleated RBCs 1 H (0-0) /100 WBC ABG pH (7.35-7.45) ABG pCO2 (35-45) mmHg ABG pO2 (83-108) mmHg ABG HCO3 (21-25) mmol/L ABG O2 Saturation (94-97) % Potassium (3.5-5.1) mmol/L Chloride 109 H (98-107) mmol/L Carbon Dioxide (22-30) mmol/L BUN 79 H (7-17) mg/dL Creatinine 2.74 H (0.52-1.04) mg/dL Glucose 221 H (74-99) mg/dL POC Glucose (mg/dL) (70-110) mg/dL Plasma Lactic Acid Russel 3.2 H* (0.7-2.0) mmol/L Calcium 5.8 L* (8.4-10.2) mg/dL 08/11/22 08/11/22 Range/Units 05:48 11:30 WBC (3.8-10.6) k/uL RBC (3.80-5.40) m/uL Hgb (11.4-16.0) gm/dL Hct (34.0-46.0) % MCHC (31.0-37.0) g/dL RDW (11.5-15.5) % Neutrophils # (Manual) (1.3-7.7) k/uL Metamyelocytes # (Man) (0) k/uL Nucleated RBCs (0-0) /100 WBC ABG pH 7.30 L (7.35-7.45) ABG pCO2 (35-45) mmHg ABG pO2 (83-108) mmHg ABG HCO3 (21-25) mmol/L ABG O2 Saturation (94-97) % Potassium (3.5-5.1) mmol/L Chloride (98-107) mmol/L Carbon Dioxide (22-30) mmol/L BUN (7-17) mg/dL Creatinine (0.52-1.04) mg/dL Glucose (74-99) mg/dL POC Glucose (mg/dL) 263 H (70-110) mg/dL Plasma Lactic Acid Russel (0.7-2.0) mmol/L Calcium (8.4-10.2) mg/dL Microbiology - Last 24 Hours (Table) 08/08/22 13:10 Urine Culture - Final Urine,Voided Enterococcus faecalis Pseudomonas aeruginosa 08/09/22 14:19 Blood Culture - Preliminary Blood No Growth after 24 hours 08/08/22 13:00 Blood Culture - Preliminary Blood No Growth after 48 hours Assessment and Plan (1) Sepsis Current Visit: Yes Status: Acute Code(s): A41.9 - SEPSIS, UNSPECIFIED ORGANISM SNOMED Code(s): 73988191 (2) UTI (urinary tract infection) Current Visit: No Status: Acute Code(s): N39.0 - URINARY TRACT INFECTION, SITE NOT SPECIFIED SNOMED Code(s): 98540306 Plan: 1patient with sepsis/septic shock in this patient is in the hospital with syncopal episode of weakness patient is now intubated on the vent and requiring high dose pressor support to maintain her blood pressure, the patient is growing gram-negative bacilli in the blood could be related to the urine as she is growing gram-negative as well as enterococcus in the urine versus related to the right lower lobe pneumonia and now there is suspicious for possible abdominal source 2patient with penicillin ALLERGY that would limit the number of antibiotic safe to use,patient with the borderline kidney function has risk of nephrotoxicity 4 urine is showing a drug resistant Pseudomonas we will go ahead and discontinue cefepime and start the patient on Avycaz, and monitor clinical course closely, prognosis remains to be guarded Time with Patient: Less than 30
--- NOTE | 2022-08-11 13:06 | P.PN ---
Subjective Progress Note Date: 08/11/22 CHIEF COMPLAINT: Abdominal pain HISTORY OF PRESENT ILLNESS: Patient remains in the ICU intubated and on m echanical ventilation. She is requiring Levophed and vasopressin. Patient has been having fevers as high as 102.4. We contacted increased 12. She has been tachycardic. Lactic acid elevated at 3.2. Patient is followed by infectious disease. Antibiotics adjusted. Per nursing staff no bowel movements. NG tube with 120 mL dark bilious output. Patient did also have atrial fibrillation with rapid ventricular response and followed by cardiology. WBC 12.2 HCV 8.6 platelets 349 sodium 139 potassium 5.1 creatinine 2.74 positive blood cultures gram-negative bacilli PHYSICAL EXAM: VITAL SIGNS: Reviewed GENERAL: no acute distress. Head is atraumatic, normocephalic. No nasal drainage. NECK: Supple without lymphadenopathy. CHEST: Non-labored respirations and equal bilateral excursions. CARDIOVASCULAR: Palpable 2+ radial pulses. ABDOMEN: Soft. distended. MUSCULOSKELETAL: No clubbing or cyanosis. ASSESSMENT: 1. Sigmoid volvulus 2. Constipation 3. UTI with sepsis 4. Syncopal episode 5. Lactic acidosis 6. Acute on chronic kidney disease 7. History of atrial fibrillation 8. History of CVA PLAN: -No surgical intervention planned -Patient is considered high risk for surgical intervention -Continue conservative management -Continue NG tube for decompression -Continue supportive care -Eliquis on hold -Recommend no enemas at this time Physician Candy Feeder note has been reviewed by physician. Signing provider agrees with the documented findings, assessment, and plan of care. Objective - Vital Signs Vital signs: Vital Signs Temp 100.8 F H 08/11/22 12:30 Pulse 98 08/11/22 12:30 Resp 28 H 08/11/22 12:30 BP 123/39 08/11/22 08:24 Pulse Ox 97 08/11/22 12:30 FiO2 50 08/11/22 11:25 Intake & Output 08/10/22 08/11/22 08/11/22 18:59 06:59 18:59 Intake Total 3961.446 3163.435 1587.716 Output Total 800 715 170 Balance 3161.446 2448.435 1417.716 Intake: IV 2545 2520 1300 .9 20 80 ACETAMINOPHEN IV (For NPO 100 ) 1,000 mg In Empty Bag 1 bag @ 400 mls/hr IVPB Q6HR PRN Rx#:[id number] Calcium Gluconate in NaCl 100 100 1 gm In Saline 1 100ml. bag @ 100 mls/hr IVPB ONCE ONE Rx#:[id number] Cefepime 1 gm In Sodium 50 Chloride 0.9% 50 ml @ 12. 5 mls/hr IVPB Q12H [facility] Rx #:[id number] Dextrose 5% in Water 1, 1050 1200 500 000 ml @ 100 mls/hr IV . [id number] [place]IGH ANN with Sodium Bicarb (1 Meq/ml) 150 ml Rx#:[id number] Invasive Line 1 10 Invasive Line 3 70 10 Invasive Line 5 90 30 Levofloxacin 500Mg-D5w 100 100 Pmx 500 mg In Dextrose/ Water 100 100ml.bag @ 100 mls/hr IVPB Q48H [facility] Rx# :[id number] Sodium Chloride 0.9% 1, 75 000 ml @ 75 mls/hr IV . [id number] [facility] Rx#:[id number] Sodium Chloride 0.9% 500 1000 1180 20 ml 500 ml @ 999 mls/hr IV .Q31M ONE Rx#:[id number] Sodium Chloride 0.9% 500 500 ml 500 ml @ 999 mls/hr IV .Q31M ONE Rx#:[id number] Intake, IV Titration 1416.446 643.435 287.716 Amount ACETAMINOPHEN IV (For NPO 100 ) 1,000 mg In Empty Bag 1 bag @ 400 mls/hr IVPB Q6HR PRN Rx#:[id number] DAPTOmycin 450 mg In 50 Sodium Chloride 0.9% 50 ml @ 100 mls/hr IVPB Q24H [facility] Rx#:[id number] Norepinephrine 32 mg In 250 112.833 Sodium Chloride 0.9% 218 ml @ 0.5 MCG/KG/MIN 25. 547 mls/hr IV .Q9H48M [facility] Rx#:[id number] Norepinephrine 4 mg In 1354.316 254 Sodium Chloride 0.9% 250 ml @ 0.03 MCG/KG/MIN 11. 665 mls/hr IV .[id number] [facility] Rx#:[id number] propofoL 1,000 mg In 62.13 89.435 74.883 Empty Bag 1 bag @ 15 MCG/ KG/MIN 9.81 mls/hr IV . [id number] [facility] Rx#:[id number] Oral 0 Tube Feeding 0 Output: Gastric Drainage 200 Urine 600 715 170 Stool 0 Other: Voiding Method Indwelling Catheter Indwelling Catheter Indwelling Catheter # Bowel Movements 0 0 ABP, PAP, CO, CI - Last Documented Arterial Blood Pressure 123/36 - Labs CBC & Chem 7: 08/11/22 05:37 08/11/22 05:37 Labs: Abnormal Lab Results - Last 24 Hours (Table) 08/10/22 08/10/22 08/10/22 Range/Units 13:56 14:09 17:00 WBC (3.8-10.6) k/uL RBC (3.80-5.40) m/uL Hgb (11.4-16.0) gm/dL Hct (34.0-46.0) % MCHC (31.0-37.0) g/dL RDW (11.5-15.5) % Neutrophils # (Manual) (1.3-7.7) k/uL Metamyelocytes # (Man) (0) k/uL Nucleated RBCs (0-0) /100 WBC ABG pH 7.20 L (7.35-7.45) ABG pCO2 48 H (35-45) mmHg ABG pO2 219 H (83-108) mmHg ABG HCO3 19 L (21-25) mmol/L ABG O2 Saturation 98.3 H (94-97) % Potassium 5.5 H (3.5-5.1) mmol/L Chloride 109 H (98-107) mmol/L Carbon Dioxide 20 L (22-30) mmol/L BUN 81 H (7-17) mg/dL Creatinine 2.74 H (0.52-1.04) mg/dL Glucose 203 H (74-99) mg/dL POC Glucose (mg/dL) (70-110) mg/dL Plasma Lactic Acid Russel 2.3 H* (0.7-2.0) mmol/L Calcium 6.5 L (8.4-10.2) mg/dL 08/10/22 08/10/22 08/10/22 Range/Units 18:13 18:21 21:08 WBC (3.8-10.6) k/uL RBC (3.80-5.40) m/uL Hgb (11.4-16.0) gm/dL Hct (34.0-46.0) % MCHC (31.0-37.0) g/dL RDW (11.5-15.5) % Neutrophils # (Manual) (1.3-7.7) k/uL Metamyelocytes # (Man) (0) k/uL Nucleated RBCs (0-0) /100 WBC ABG pH (7.35-7.45) ABG pCO2 (35-45) mmHg ABG pO2 (83-108) mmHg ABG HCO3 (21-25) mmol/L ABG O2 Saturation (94-97) % Potassium (3.5-5.1) mmol/L Chloride (98-107) mmol/L Carbon Dioxide (22-30) mmol/L BUN (7-17) mg/dL Creatinine (0.52-1.04) mg/dL Glucose (74-99) mg/dL POC Glucose (mg/dL) 393 H (70-110) mg/dL Plasma Lactic Acid Russel 3.3 H* 2.9 H* (0.7-2.0) mmol/L Calcium (8.4-10.2) mg/dL 08/11/22 08/11/22 08/11/22 Range/Units 00:45 00:55 05:34 WBC (3.8-10.6) k/uL RBC (3.80-5.40) m/uL Hgb (11.4-16.0) gm/dL Hct (34.0-46.0) % MCHC (31.0-37.0) g/dL RDW (11.5-15.5) % Neutrophils # (Manual) (1.3-7.7) k/uL Metamyelocytes # (Man) (0) k/uL Nucleated RBCs (0-0) /100 WBC ABG pH (7.35-7.45) ABG pCO2 (35-45) mmHg ABG pO2 (83-108) mmHg ABG HCO3 (21-25) mmol/L ABG O2 Saturation (94-97) % Potassium (3.5-5.1) mmol/L Chloride (98-107) mmol/L Carbon Dioxide (22-30) mmol/L BUN (7-17) mg/dL Creatinine (0.52-1.04) mg/dL Glucose (74-99) mg/dL POC Glucose (mg/dL) 234 H 255 H (70-110) mg/dL Plasma Lactic Acid Russel 2.5 H* (0.7-2.0) mmol/L Calcium (8.4-10.2) mg/dL 08/11/22 08/11/22 08/11/22 Range/Units 05:37 05:37 05:37 WBC 12.2 H (3.8-10.6) k/uL RBC 3.25 L (3.80-5.40) m/uL Hgb 8.6 L (11.4-16.0) gm/dL Hct 28.4 L (34.0-46.0) % MCHC 30.2 L (31.0-37.0) g/dL RDW 16.0 H (11.5-15.5) % Neutrophils # (Manual) 8.50 H (1.3-7.7) k/uL Metamyelocytes # (Man) 0.49 H (0) k/uL Nucleated RBCs 1 H (0-0) /100 WBC ABG pH (7.35-7.45) ABG pCO2 (35-45) mmHg ABG pO2 (83-108) mmHg ABG HCO3 (21-25) mmol/L ABG O2 Saturation (94-97) % Potassium (3.5-5.1) mmol/L Chloride 109 H (98-107) mmol/L Carbon Dioxide (22-30) mmol/L BUN 79 H (7-17) mg/dL Creatinine 2.74 H (0.52-1.04) mg/dL Glucose 221 H (74-99) mg/dL POC Glucose (mg/dL) (70-110) mg/dL Plasma Lactic Acid Russel 3.2 H* (0.7-2.0) mmol/L Calcium 5.8 L* (8.4-10.2) mg/dL 08/11/22 08/11/22 08/11/22 Range/Units 05:48 11:30 11:32 WBC (3.8-10.6) k/uL RBC (3.80-5.40) m/uL Hgb (11.4-16.0) gm/dL Hct (34.0-46.0) % MCHC (31.0-37.0) g/dL RDW (11.5-15.5) % Neutrophils # (Manual) (1.3-7.7) k/uL Metamyelocytes # (Man) (0) k/uL Nucleated RBCs (0-0) /100 WBC ABG pH 7.30 L (7.35-7.45) ABG pCO2 (35-45) mmHg ABG pO2 (83-108) mmHg ABG HCO3 (21-25) mmol/L ABG O2 Saturation (94-97) % Potassium (3.5-5.1) mmol/L Chloride (98-107) mmol/L Carbon Dioxide (22-30) mmol/L BUN (7-17) mg/dL Creatinine (0.52-1.04) mg/dL Glucose (74-99) mg/dL POC Glucose (mg/dL) 263 H (70-110) mg/dL Plasma Lactic Acid Russel 2.6 H* (0.7-2.0) mmol/L Calcium (8.4-10.2) mg/dL Microbiology - Last 24 Hours (Table) 08/08/22 13:10 Urine Culture - Final Urine,Voided Enterococcus faecalis Pseudomonas aeruginosa 08/09/22 14:19 Blood Culture - Preliminary Blood No Growth after 24 hours 08/08/22 13:00 Blood Culture - Preliminary Blood No Growth after 48 hours
[2022-08-11] MEDS ORDERED: CEFTAZIDIME/AVIBACTAM 0.94 GM in SODIUM CHLORIDE 0.9% 100 ML IVPB SCH (14:00)
[2022-08-11 17:08] LABS: Potassium 4.5 mmol/L (3.5-5.1)
[2022-08-11 17:22] LABS: Calcium 5.8 mg/dL (8.4-10.2)
[2022-08-11 18:04] LABS: Glucose,Whole Blood 216 mg/dL (70-110)
[2022-08-11] MEDS: VASOPRESSIN 60 UNIT in SODIUM CHLORIDE 0.9% 150 ML IV SCH (18:05)
[2022-08-11 18:29] LABS: Albumin 1.9 g/dL (3.5-5.0)
[2022-08-11 18:50] LABS: Ionized Calcium 3.7 mg/dL (4.5-5.3)
[2022-08-11] MEDS: SODIUM CHLORIDE 0.9% 1,000 ML IV SCH (20:32)
[2022-08-11 23:08] LABS: Glucose,Whole Blood 138 mg/dL (70-110)
[2022-08-12] MEDS: IPRATROPIUM-ALBUTEROL 3 ML NEB INHALATION SCH ×6 (00:05→19:22)
[2022-08-12] MEDS: NOREPINEPHRINE 32 MG in SODIUM CHLORIDE 0.9% 218 ML IV SCH ×3 (01:32→18:22)
[2022-08-12 04:24] LABS: Anisocytosis Slight; HCT 26.3 % (34.0-46.0); HGB 8.4 gm/dL (11.4-16.0); Hypochromasia Moderate; MCH 27.3 pg (25.0-35.0); MCHC 31.9 g/dL (31.0-37.0); MCV 85.6 fL (80.0-100.0); Mean Platelet Volume 8.7; Platelet Count 268 k/uL (150-450); RBC 3.07 m/uL (3.80-5.40); RDW 16.3 % (11.5-15.5); WBC 6.8 k/uL (3.8-10.6)
[2022-08-12 05:04] LABS: Band Neutrophils % 6 %; Lymphocytes # (M) 1.16 k/uL (1.0-4.8); Metamyelocytes # (M) 0.14 k/uL (0); Metamyelocytes % 2 %; Neutrophils % (M) 73 %; Nucleated Red Blood Cells 0 /100 WBC (0-0); Total Cells Counted 200
[2022-08-12 05:06] LABS: Polychromasia Present; Toxic Granulation Present
[2022-08-12 05:27] LABS: Albumin 1.8 g/dL (3.5-5.0); Potassium 4.5 mmol/L (3.5-5.1); Total Bilirubin 0.5 mg/dL (0.2-1.3)
[2022-08-12 05:44] LABS: Glucose,Whole Blood 148 mg/dL (70-110)
[2022-08-12 05:46] LABS: ABG Base Excess -2.5 mmol/L; ABG HCO3 23 mmol/L (21-25); ABG Oxygen Saturation 98.5 % (94-97); ABG PCO2 40 mmHg (35-45); ABG PH 7.37 (7.35-7.45); ABG PO2 115 mmHg (83-108); ABG TCO2 24 mmol/L (19-24); Allen Test Performed? Yes
[2022-08-12] MEDS: INSULIN ASPART (NovoLOG) 100 UNIT/ML VIAL SQ SCH ×4 (05:49→23:30)
[2022-08-12] MEDS: INSULIN DETEMIR (LEVEMIR) 100 UNIT/ML SYR SQ SCH (06:06)
[2022-08-12] MEDS: SODIUM CHLORIDE 0.9% 1,000 ML IV SCH ×2 (06:06→16:52)
[2022-08-12] MEDS: FORMOTEROL FUMARATE 20 MCG/2 ML NEBU INHALATION SCH ×2 (07:29→19:22)
[2022-08-12] MEDS: BUDESONIDE 1 MG/2 ML NEBU INHALATION SCH ×2 (07:29→19:22)
--- NOTE | 2022-08-12 08:12 | XR ---
EXAMINATION TYPE: XR chest 1V portable DATE OF EXAM: 08/12/2022 6:23 AM COMPARISON: Chest radiographs from 08/11/2021. TECHNIQUE: XR chest 1V portable Frontal view of the chest. CLINICAL INDICATION:Female, 87 years old with history of Tube placement; FINDINGS: Lungs/Pleura: Bibasilar atelectasis. No evidence for pneumothorax or focal consolidation. There is bl unting of the costophrenic angles. Pulmonary vascularity: Unremarkable. Heart/mediastinum: Cardiomediastinal silhouette is unremarkable. Musculoskeletal: No acute osseous pathology. Lines/Tubes: Endotracheal tube with distal tip 4.1 cm above the amalia. Nasogastric tube with its distal tip and side-port projecting under the diaphragm. Left central line with tip at the superior cavoatrial junction. IMPRESSION: Stable support tubes with bibasilar atelectasis with suggested bilateral pleural effusions.
[2022-08-12] MEDS ORDERED: LEVOFLOXACIN 500MG-D5W PMX 500 MG in DEXTROSE/WATER 1 100ML.BAG IVPB SCH (09:00)
[2022-08-12] MEDS: CEFTOLOZANE/TAZOBACTAM 0.75 GM in SODIUM CHLORIDE 0.9% 100 ML IV SCH ×2 (09:00→16:51)
[2022-08-12] MEDS: polyethylene glycoL 3350 17 GM POWD.PACK PO SCH ×2 (09:07→21:12)
[2022-08-12] MEDS: AMIODARONE 200 MG TAB PO SCH (09:07)
[2022-08-12] MEDS: TAMSULOSIN 0.4 MG CAP.ER.24H PO SCH (09:07)
[2022-08-12] MEDS: CHLORHEXIDINE GLUCONATE 15 ML CUP MUCOUS MEM SCH ×2 (09:30→21:12)
[2022-08-12] MEDS: PANTOPRAZOLE 40 MG/10 ML VIAL IVP SCH (09:30)
--- NOTE | 2022-08-12 11:05 | P.PN ---
Subjective Progress Note Date: 08/12/22 Principal diagnosis: This is a 87-year-old female seen in consultation because of acute kidney injury. Her blood culture grew gram-negative and the urine culture grew Pseudomonas and enterococcus. Currently she is on the ventilator at 40% FiO2 on vasopressin and levo fed. Febrile T-max is 101.3 Her blood pressures are in the 100s over 30s diastolic Her 24-hour intake is 1086. Urine output is 390 and gastric output 200 mL and History of present illness: Patient is a 87-year-old female seen in consultation for acute kidney injury. Patient's creatinine in June 2022 was as low as 0.84. This admission and was elevated at 1.5 and is up at 2.68 today. Patient presented to the hospital on 08/08/2022 due to shortness of breath. Patient had a syncopal episode while she was on the toilet. Patient was brought to the hospital by the EMS. Patient was transferred to the ICU early this morning due to hypotension. Patient has received 4.5 L of normal saline bolus in the last 24 hours. She was switched over to bicarb drip this morning due to severe acidosis. Potassium was 6.3 as morning which was medically treated. Patient is currently on Levophed as well as vasopressin. Despite receiving IV Lasix patient's urine output remains low. Patient has history of diabetes. She was taking metformin outpatient which is currently held. I don't see any nonsteroidals in her home medication list. Case discussed with the daughter was present at bedside. Objective - Vital Signs Vital signs: Vital Signs Temp 99.1 F 08/12/22 08:00 Pulse 128 H 08/12/22 10:51 Resp 24 08/12/22 10:51 BP 151/54 08/12/22 09:00 Pulse Ox 96 08/12/22 10:00 FiO2 40 08/12/22 10:52 Intake & Output 08/11/22 08/12/22 08/12/22 18:59 06:59 18:59 Intake Total 3186.975 1853.000 774.158 Output Total 1115 810 235 Balance 2071.975 1043.000 539.158 Weight 120.202 kg Intake: IV 2693 303 302 .9 20 220 240 80 .9 3cc/hr 33 33 12 ACETAMINOPHEN IV (For NPO 100 ) 1,000 mg In Empty Bag 1 bag @ 400 mls/hr IVPB Q6HR PRN Rx#:[id number] Calcium Gluconate in NaCl 100 1 gm In Saline 1 100ml. bag @ 100 mls/hr IVPB ONCE ONE Rx#:[id number] Ceftazidime/Avibactam 0. 100 94 gm In Sodium Chloride 0.9% 100 ml @ 50 mls/hr IVPB Q24H [facility] Rx#: [id number] Dextrose 5% in Water 1, 1200 000 ml @ 100 mls/hr IV . [id number] [facility] with Sodium Bicarb (1 Meq/ml) 150 ml Rx#:[id number] Invasive Line 7 20 30 10 Levofloxacin 500Mg-D5w 100 Pmx 500 mg In Dextrose/ Water 100 100ml.bag @ 100 mls/hr IVPB Q48H [facility] Rx# :[id number] Sodium Chloride 0.9% 500 20 ml 500 ml @ 999 mls/hr IV .Q31M ONE Rx#:[id number] Sodium Chloride 0.9% 500 1000 ml 500 ml @ 999 mls/hr IV .Q31M ONE Rx#:[id number] Intake, IV Titration 111.493 7894.000 472.158 Amount ACETAMINOPHEN IV (For NPO 100 ) 1,000 mg In Empty Bag 1 bag @ 400 mls/hr IVPB Q6HR PRN Rx#:[id number] Calcium Gluconate in NaCl 100 2 gm In Saline 1 100ml. bag @ 100 mls/hr IVPB ONCE ONE Rx#:[id number] Norepinephrine 32 mg In 112.833 250 Sodium Chloride 0.9% 218 ml @ 0.5 MCG/KG/MIN 25. 547 mls/hr IV .Q9H48M [facility] Rx#:[id number] Sodium Chloride 0.9% 1, 1100 400 000 ml @ 100 mls/hr IV . Q10H [facility] Rx#:[id number] Vasopressin 60 unit In 142.494 Sodium Chloride 0.9% 150 ml @ 0.04 UNITS/MIN 6.12 mls/hr IV .Q24H [facility] Rx#: [id number] propofoL 1,000 mg In 138.648 100.000 72.158 Empty Bag 1 bag @ 15 MCG/ KG/MIN 9.81 mls/hr IV . [id number] [facility] Rx#:[id number] Oral 0 Tube Feeding 0 Output: Gastric Drainage 400 200 50 Urine 715 610 185 Other: Voiding Method Indwelling Catheter Indwelling Catheter Indwelling Catheter # Bowel Movements 1 ABP, PAP, CO, CI - Last Documented Arterial Blood Pressure 104/37 On examination she is on the ventilator at 40% FiO2 sedated, currently on levo fed and vasopressin No facial asymmetry noted Lungs are clear to auscultation fair air entry bilaterally Heart sounds unremarkable. Abdomen is soft nondistended Extremity exam was trace edema. Warm to touch. - Labs CBC & Chem 7: 08/12/22 04:08 08/12/22 04:08 Labs: Abnormal Lab Results - Last 24 Hours (Table) 08/11/22 08/11/22 08/11/22 Range/Units 11:30 11:32 16:05 RBC (3.80-5.40) m/uL Hgb (11.4-16.0) gm/dL Hct (34.0-46.0) % RDW (11.5-15.5) % Metamyelocytes # (Man) (0) k/uL ABG pO2 (83-108) mmHg ABG O2 Saturation (94-97) % ABG Lactic Acid (0.5-1.6) mmol/L Chloride (98-107) mmol/L BUN (7-17) mg/dL Creatinine (0.52-1.04) mg/dL Glucose (74-99) mg/dL POC Glucose (mg/dL) 263 H (70-110) mg/dL Plasma Lactic Acid Russel 2.6 H* 3.3 H* (0.7-2.0) mmol/L Calcium (8.4-10.2) mg/dL Ionized Calcium Leesa (4.5-5.3) mg/dL Magnesium (1.6-2.3) mg/dL AST (14-36) U/L Alkaline Phosphatase (38-126) U/L Total Protein (6.3-8.2) g/dL Albumin (3.5-5.0) g/dL 08/11/22 08/11/22 08/11/22 Range/Units 16:05 18:00 18:03 RBC (3.80-5.40) m/uL Hgb (11.4-16.0) gm/dL Hct (34.0-46.0) % RDW (11.5-15.5) % Metamyelocytes # (Man) (0) k/uL ABG pO2 (83-108) mmHg ABG O2 Saturation (94-97) % ABG Lactic Acid (0.5-1.6) mmol/L Chloride (98-107) mmol/L BUN 81 H (7-17) mg/dL Creatinine 2.77 H (0.52-1.04) mg/dL Glucose 199 H (74-99) mg/dL POC Glucose (mg/dL) 216 H (70-110) mg/dL Plasma Lactic Acid Russel (0.7-2.0) mmol/L Calcium 5.8 L* (8.4-10.2) mg/dL Ionized Calcium Leesa 3.7 L (4.5-5.3) mg/dL Magnesium (1.6-2.3) mg/dL AST (14-36) U/L Alkaline Phosphatase (38-126) U/L Total Protein (6.3-8.2) g/dL Albumin 1.9 L (3.5-5.0) g/dL 08/11/22 08/11/22 08/12/22 Range/Units 23:02 23:07 04:08 RBC (3.80-5.40) m/uL Hgb (11.4-16.0) gm/dL Hct (34.0-46.0) % RDW (11.5-15.5) % Metamyelocytes # (Man) (0) k/uL ABG pO2 (83-108) mmHg ABG O2 Saturation (94-97) % ABG Lactic Acid 3.5 H* (0.5-1.6) mmol/L Chloride 110 H (98-107) mmol/L BUN 81 H (7-17) mg/dL Creatinine 2.72 H (0.52-1.04) mg/dL Glucose 162 H (74-99) mg/dL POC Glucose (mg/dL) 138 H (70-110) mg/dL Plasma Lactic Acid Russel (0.7-2.0) mmol/L Calcium 6.0 L* (8.4-10.2) mg/dL Ionized Calcium [place]esa (4.5-5.3) mg/dL Magnesium (1.6-2.3) mg/dL AST 166 H (14-36) U/L Alkaline Phosphatase 385 H (38-126) U/L Total Protein 4.0 L (6.3-8.2) g/dL Albumin 1.8 L (3.5-5.0) g/dL 08/12/22 08/12/22 08/12/22 Range/Units 04:08 04:08 04:08 RBC 3.07 L (3.80-5.40) m/uL Hgb 8.4 L (11.4-16.0) gm/dL Hct 26.3 L (34.0-46.0) % RDW 16.3 H (11.5-15.5) % Metamyelocytes # (Man) 0.14 H (0) k/uL ABG pO2 (83-108) mmHg ABG O2 Saturation (94-97) % ABG Lactic Acid 2.4 H* (0.5-1.6) mmol/L Chloride (98-107) mmol/L BUN (7-17) mg/dL Creatinine (0.52-1.04) mg/dL Glucose (74-99) mg/dL POC Glucose (mg/dL) (70-110) mg/dL Plasma Lactic Acid Russel (0.7-2.0) mmol/L Calcium (8.4-10.2) mg/dL Ionized Calcium Leesa (4.5-5.3) mg/dL Magnesium 2.6 H (1.6-2.3) mg/dL AST (14-36) U/L Alkaline Phosphatase (38-126) U/L Total Protein (6.3-8.2) g/dL Albumin (3.5-5.0) g/dL 08/12/22 08/12/22 Range/Units 05:42 05:43 RBC (3.80-5.40) m/uL Hgb (11.4-16.0) gm/dL Hct (34.0-46.0) % RDW (11.5-15.5) % Metamyelocytes # (Man) (0) k/uL ABG pO2 115 H (83-108) mmHg ABG O2 Saturation 98.5 H (94-97) % ABG Lactic Acid (0.5-1.6) mmol/L Chloride (98-107) mmol/L BUN (7-17) mg/dL Creatinine (0.52-1.04) mg/dL Glucose (74-99) mg/dL POC Glucose (mg/dL) 148 H (70-110) mg/dL Plasma Lactic Acid Russel (0.7-2.0) mmol/L Calcium (8.4-10.2) mg/dL Ionized Calcium Leesa (4.5-5.3) mg/dL Magnesium (1.6-2.3) mg/dL AST (14-36) U/L Alkaline Phosphatase (38-126) U/L Total Protein (6.3-8.2) g/dL Albumin (3.5-5.0) g/dL Microbiology - Last 24 Hours (Table) 08/11/22 17:06 Gram Stain - Preliminary Sputum Sputum Culture - Preliminary 08/08/22 13:30 Blood Culture Gram Stain - Preliminary Blood 08/10/22 17:00 Blood Culture - Preliminary Blood No Growth after 24 hours 08/09/22 14:19 Blood Culture - Preliminary Blood No Growth after 48 hours 08/08/22 13:00 Blood Culture - Preliminary Blood No Growth after 72 hours Assessment and Plan Assessment: Impression 1. Acute kidney injury secondary to prerenal from bacteremia and sepsis and urinary tract infection. Creatinine is worsening but stable over the last few days at 2.7. She is oliguric therefore this may be over estimating her GFR. 2. Hypotension secondary to sepsis 3. Ventilator dependent respiratory failure 3. Left lower lobe pneumonia 4. UTI with Pseudomonas and enterococcus. 5. Hypocalcemia secondary to acute kidney injury. 6. Elevated liver function tests secondary to sepsis Recommendation 1. Maintain inotropic support to keep her mean arterial pressure around 65 or above 2. Avoid any Lasix, other nephrotoxic medications. 3. Prognosis guarded secondary to multiorgan failure with ventilator-dependent failure as well as acute kidney injury
--- NOTE | 2022-08-12 11:23 | P.PN ---
Subjective Progress Note Date: 08/12/22 Principal diagnosis: Sepsis, acute kidney injury, shortness of breath, heart failure Patient presented to the hospital on 08/08/2022 secondary to shortness of breath hypotension patient had syncopal episode on the toilet, was recently discharged from rehab facility, brought in by EMS, was admitted to the stepdown unit, and subsequently transferred to the intensive care unit where she was placed on BiPAP secondary to severe acidosis and was intubated and placed on pressors , despite multiple boluses of normal saline despite receiving IV Lasix patient's urinary R remains low. This patient has a long-standing history of diabetes hypertension Objective - Vital Signs Vital signs: Vital Signs Temp 99.1 F 08/12/22 08:00 Pulse 128 H 08/12/22 10:51 Resp 24 08/12/22 10:51 BP 151/54 08/12/22 09:00 Pulse Ox 96 08/12/22 10:00 FiO2 40 08/12/22 10:52 Intake & Output 08/11/22 08/12/22 08/12/22 18:59 06:59 18:59 Intake Total 3186.975 1853.000 774.158 Output Total 1115 810 235 Balance 2071.975 1043.000 539.158 Weight 120.202 kg Intake: IV 2693 303 302 .9 20 220 240 80 .9 3cc/hr 33 33 12 ACETAMINOPHEN IV (For NPO 100 ) 1,000 mg In Empty Bag 1 bag @ 400 mls/hr IVPB Q6HR PRN Rx#:[id number] Calcium Gluconate in NaCl 100 1 gm In Saline 1 100ml. bag @ 100 mls/hr IVPB ONCE ONE Rx#:[id number] Ceftazidime/Avibactam 0. 100 94 gm In Sodium Chloride 0.9% 100 ml @ 50 mls/hr IVPB Q24H [facility] Rx#: [id number] Dextrose 5% in Water 1, 1200 000 ml @ 100 mls/hr IV . [id number] [facility] with Sodium Bicarb (1 Meq/ml) 150 ml Rx#:[id number] Invasive Line 7 20 30 10 Levofloxacin 500Mg-D5w 100 Pmx 500 mg In Dextrose/ Water 100 100ml.bag @ 100 mls/hr IVPB Q48H [facility] Rx# :[id number] Sodium Chloride 0.9% 500 20 ml 500 ml @ 999 mls/hr IV .Q31M [facility] Rx#:[id number] Sodium Chloride 0.9% 500 1000 ml 500 ml @ 999 mls/hr IV .Q31M [facility] Rx#:[id number] Intake, IV Titration 345.306 1682.000 472.158 Amount ACETAMINOPHEN IV (For NPO 100 ) 1,000 mg In Empty Bag 1 bag @ 400 mls/hr IVPB Q6HR PRN Rx#:[id number] Calcium Gluconate in NaCl 100 2 gm In Saline 1 100ml. bag @ 100 mls/hr IVPB ONCE ONE Rx#:[id number] Norepinephrine 32 mg In 112.833 250 Sodium Chloride 0.9% 218 ml @ 0.5 MCG/KG/MIN 25. 547 mls/hr IV .Q9H48M [facility] Rx#:[id number] Sodium Chloride 0.9% 1, 1100 400 000 ml @ 100 mls/hr IV . Q10H [facility] Rx#:[id number] Vasopressin 60 unit In 142.494 Sodium Chloride 0.9% 150 ml @ 0.04 UNITS/MIN 6.12 mls/hr IV .Q24H [facility] Rx#: [id number] propofoL 1,000 mg In 138.648 100.000 72.158 Empty Bag 1 bag @ 15 MCG/ KG/MIN 9.81 mls/hr IV . [id number] [facility] Rx#:[id number] Oral 0 Tube Feeding 0 Output: Gastric Drainage 400 200 50 Urine 715 610 185 Other: Voiding Method Indwelling Catheter Indwelling Catheter Indwelling Catheter # Bowel Movements 1 ABP, PAP, CO, CI - Last Documented Arterial Blood Pressure 104/37 - Exam General: Patient is intubated on a vent HEENT: Normocephalic atraumatic, senescent pattern baldness Neck: [No adenopathy.] Cardiac: [Heart regularly irregular. No S3. No S4. No clicks, rubs. Lungs: Diminished breath sounds bilaterally scattered rhonchi noted Abdomen: [No mass. No organomegaly. Bowel sounds presnt and normoactive in all 4 quadrants. This patient is morbidly obese Extremes: [No edema no cyanosis no claudication normal pulses] : Normal female genitalia Musculoskeletal: [No joint erythema, edema or tenderness.] Skin: [No rash.] Neurologic: Patient is sedated on a ventilatory support Lymphatic: [No adenopathy.] - Labs CBC & Chem 7: 08/12/22 04:08 08/12/22 04:08 Labs: Abnormal Lab Results - Last 24 Hours (Table) 08/11/22 08/11/22 08/11/22 Range/Units 11:30 11:32 16:05 RBC (3.80-5.40) m/uL Hgb (11.4-16.0) gm/dL Hct (34.0-46.0) % RDW (11.5-15.5) % Metamyelocytes # (Man) (0) k/uL ABG pO2 (83-108) mmHg ABG O2 Saturation (94-97) % ABG Lactic Acid (0.5-1.6) mmol/L Chloride (98-107) mmol/L BUN (7-17) mg/dL Creatinine (0.52-1.04) mg/dL Glucose (74-99) mg/dL POC Glucose (mg/dL) 263 H (70-110) mg/dL Plasma Lactic Acid Russel 2.6 H* 3.3 H* (0.7-2.0) mmol/L Calcium (8.4-10.2) mg/dL Ionized Calcium Leesa (4.5-5.3) mg/dL Magnesium (1.6-2.3) mg/dL AST (14-36) U/L Alkaline Phosphatase (38-126) U/L Total Protein (6.3-8.2) g/dL Albumin (3.5-5.0) g/dL 08/11/22 08/11/22 08/11/22 Range/Units 16:05 18:00 18:03 RBC (3.80-5.40) m/uL Hgb (11.4-16.0) gm/dL Hct (34.0-46.0) % RDW (11.5-15.5) % Metamyelocytes # (Man) (0) k/uL ABG pO2 (83-108) mmHg ABG O2 Saturation (94-97) % ABG Lactic Acid (0.5-1.6) mmol/L Chloride (98-107) mmol/L BUN 81 H (7-17) mg/dL Creatinine 2.77 H (0.52-1.04) mg/dL Glucose 199 H (74-99) mg/dL POC Glucose (mg/dL) 216 H (70-110) mg/dL Plasma Lactic Acid Russel (0.7-2.0) mmol/L Calcium 5.8 L* (8.4-10.2) mg/dL Ionized Calcium [place] 3.7 L (4.5-5.3) mg/dL Magnesium (1.6-2.3) mg/dL AST (14-36) U/L Alkaline Phosphatase (38-126) U/L Total Protein (6.3-8.2) g/dL Albumin 1.9 L (3.5-5.0) g/dL 08/11/22 08/11/22 08/12/22 Range/Units 23:02 23:07 04:08 RBC (3.80-5.40) m/uL Hgb (11.4-16.0) gm/dL Hct (34.0-46.0) % RDW (11.5-15.5) % Metamyelocytes # (Man) (0) k/uL ABG pO2 (83-108) mmHg ABG O2 Saturation (94-97) % ABG Lactic Acid 3.5 H* (0.5-1.6) mmol/L Chloride 110 H (98-107) mmol/L BUN 81 H (7-17) mg/dL Creatinine 2.72 H (0.52-1.04) mg/dL Glucose 162 H (74-99) mg/dL POC Glucose (mg/dL) 138 H (70-110) mg/dL Plasma Lactic Acid Russel (0.7-2.0) mmol/L Calcium 6.0 L* (8.4-10.2) mg/dL Ionized Calcium [place] (4.5-5.3) mg/dL Magnesium (1.6-2.3) mg/dL AST 166 H (14-36) U/L Alkaline Phosphatase 385 H (38-126) U/L Total Protein 4.0 L (6.3-8.2) g/dL Albumin 1.8 L (3.5-5.0) g/dL 08/12/22 08/12/22 08/12/22 Range/Units 04:08 04:08 04:08 RBC 3.07 L (3.80-5.40) m/uL Hgb 8.4 L (11.4-16.0) gm/dL Hct 26.3 L (34.0-46.0) % RDW 16.3 H (11.5-15.5) % Metamyelocytes # (Man) 0.14 H (0) k/uL ABG pO2 (83-108) mmHg ABG O2 Saturation (94-97) % ABG Lactic Acid 2.4 H* (0.5-1.6) mmol/L Chloride (98-107) mmol/L BUN (7-17) mg/dL Creatinine (0.52-1.04) mg/dL Glucose (74-99) mg/dL POC Glucose (mg/dL) (70-110) mg/dL Plasma Lactic Acid Russel (0.7-2.0) mmol/L Calcium (8.4-10.2) mg/dL Ionized Calcium [place]esa (4.5-5.3) mg/dL Magnesium 2.6 H (1.6-2.3) mg/dL AST (14-36) U/L Alkaline Phosphatase (38-126) U/L Total Protein (6.3-8.2) g/dL Albumin (3.5-5.0) g/dL 08/12/22 08/12/22 Range/Units 05:42 05:43 RBC (3.80-5.40) m/uL Hgb (11.4-16.0) gm/dL Hct (34.0-46.0) % RDW (11.5-15.5) % Metamyelocytes # (Man) (0) k/uL ABG pO2 115 H (83-108) mmHg ABG O2 Saturation 98.5 H (94-97) % ABG Lactic Acid (0.5-1.6) mmol/L Chloride (98-107) mmol/L BUN (7-17) mg/dL Creatinine (0.52-1.04) mg/dL Glucose (74-99) mg/dL POC Glucose (mg/dL) 148 H (70-110) mg/dL Plasma Lactic Acid Russel (0.7-2.0) mmol/L Calcium (8.4-10.2) mg/dL Ionized Calcium Leesa (4.5-5.3) mg/dL Magnesium (1.6-2.3) mg/dL AST (14-36) U/L Alkaline Phosphatase (38-126) U/L Total Protein (6.3-8.2) g/dL Albumin (3.5-5.0) g/dL Microbiology - Last 24 Hours (Table) 08/11/22 17:06 Gram Stain - Preliminary Sputum Sputum Culture - Preliminary 08/08/22 13:30 Blood Culture Gram Stain - Preliminary Blood 08/10/22 17:00 Blood Culture - Preliminary Blood No Growth after 24 hours 08/09/22 14:19 Blood Culture - Preliminary Blood No Growth after 48 hours 08/08/22 13:00 Blood Culture - Preliminary Blood No Growth after 72 hours Assessment and Plan (1) Sepsis Current Visit: Yes Status: Acute Code(s): A41.9 - SEPSIS, UNSPECIFIED ORGANISM SNOMED Code(s): 39510603 (2) Acquired hypothyroidism Current Visit: No Status: Acute Code(s): E03.9 - HYPOTHYROIDISM, UNSPECIFIED SNOMED Code(s): 573548091 (3) Acute exacerbation of chronic obstructive pulmonary disease Current Visit: No Status: Acute Code(s): J44.1 - CHRONIC OBSTRUCTIVE PULMONARY DISEASE W (ACUTE) EXACERBATION SNOMED Code(s): 028419101 (4) Acute on chronic diastolic (congestive) heart failure Current Visit: No Status: Acute Code(s): I50.33 - ACUTE ON CHRONIC DIASTOLIC (CONGESTIVE) HEART FAILURE SNOMED Code(s): 859501627 (5) Acute on chronic renal failure Current Visit: No Status: Acute Code(s): N17.9 - ACUTE KIDNEY FAILURE, UNSPECIFIED; N18.9 - CHRONIC KIDNEY DISEASE, UNSPECIFIED SNOMED Code(s): 892701367 (6) Acute pulmonary edema Current Visit: No Status: Acute Code(s): J81.0 - ACUTE PULMONARY EDEMA SNOMED Code(s): 56102826 (7) Acute renal failure Current Visit: No Status: Acute Code(s): N17.9 - ACUTE KIDNEY FAILURE, UNSPECIFIED SNOMED Code(s): 89357565 (8) Altered mental status Current Visit: No Status: Acute Code(s): R41.82 - ALTERED MENTAL STATUS, UNSPECIFIED SNOMED Code(s): 677192706 (9) Anemia Current Visit: No Status: Acute Code(s): D64.9 - ANEMIA, UNSPECIFIED S NOMED Code(s): 380862849 (10) CAD (coronary atherosclerotic disease) Current Visit: No Status: Acute Code(s): I25.10 - ATHSCL HEART DISEASE OF [place] CORONARY ARTERY W/O ANG PCTRS SNOMED Code(s): 487488583 (11) CHF (congestive heart failure) Current Visit: No Status: Acute Code(s): I50.9 - HEART FAILURE, UNSPECIFIED SNOMED Code(s): 98536328 (12) CKD (chronic kidney disease) stage 3, GFR 30-59 ml/min Current Visit: No Status: Acute Code(s): N18.30 - CHRONIC KIDNEY DISEASE, STAGE 3 UNSPECIFIED SNOMED Code(s): 166964388 (13) COPD exacerbation Current Visit: No Status: Acute Code(s): J44.1 - CHRONIC OBSTRUCTIVE PULM ONARY DISEASE W (ACUTE) EXACERBATION SNOMED Code(s): 911415493 (14) COVID-19 Current Visit: No Status: Acute Code(s): U07.1 - COVID-19 SNOMED Code(s): 533806262 (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 Current Visit: No Status: Acute Code(s): M54.42 - LUMBAGO WITH SCIATICA, LEFT SIDE; M54.41 - LUMBAGO WITH SCIATICA, RIGHT SIDE; G89.29 - OTHER CHRONIC PAIN SNOMED Code(s): 924902697 Plan: Acute kidney injury secondary to urinary sepsis Hypotension secondary to sepsis Acute respiratory failure ventilator dependent Left lower lobe pneumonia Urinary tract infection secondary to Pseudomonas and enterococcus For calcium media standard acute renal injury Elevated liver function secondary to sepsis Aggressive supportive care being provided Prognosis poor secondary to multiorgan failure ventilator dependence and acute kidney injury Time with Patient: Greater than 30
[2022-08-12 11:30] LABS: Glucose,Whole Blood 138 mg/dL (70-110)
--- NOTE | 2022-08-12 11:50 | P.PN ---
Subjective Progress Note Date: 08/12/22 This is a 87-year-old female patient with a known history of coronary artery disease with previous stent placements, hypothyroidism, morbid obesity, multiple orthopedic surgeries, congestive heart failure, diabetes bella, hypertension, hyperlipidemia, osteoarthritis, obstructive sleep apnea on BiPAP, CVA/TIA, oxygen dependent and she was recently discharged from here to [facility] on the [place] and was just home for 3 days when she developed a syncopal episode yesterday. Her that may related to low blood sugar and try to give her oral issues which she vomited. She was brought into the emergency room yesterday. She is seen today in consultation. She remains in the emergency department. She is sitting up in bed. She is basically just moaning and groaning. Her family is at the bedside and provides him permission. She was initially placed on BiPAP. She is currently on 6 L high flow nasal cannula with O2 saturations in the 90s. Afebrile. Somewhat hypotensive. Blood culture reveals no growth to date. Urine culture pending. White count 19.1. Hemoglobin 8.0. Sodium 136. Potassium 4.6. Bicarb 17. BUN 66. Creatinine 2.27. Glucose 145. D-dimer 4.73. ProBNP 426. Troponin negative 1. CT angiogram ruled out pulmonary embolism. There is evidence of cardiomegaly with pulmonary vascular congestion. Scattered airspace opacities more consolidation in the right lung base. Rule out aspiration. Computed tomography scan of the abdomen and pelvis revealed extensive stool burden throughout the colon. 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 Today's chest x-ray shows Nasogastric tube in place. Mild cardiomegaly with bibasilar acute infiltrate and/or atelectasis. She's been initiated on Symbicort, DuoNeb inhalations, antibiotics in the form of Levaquin. She is anticoagulated with Eliquis. The patient is seen today for per 2022 in follow-up in the intensive care unit. Just after midnight they called an a team on her due to her being obtunded and hypotensive. She was on the sixth liter Ventimask and they do arterial blood gases that revealed a pO2 of 136, pCO2 31, pH 7.28. She was placed on BiPAP 12/5 and 50% and transferred into the intensive care unit. She received 3 A of sodium bicarb. She has D5W with 3 A of sodium bicarb at 75 ML's per hour. She is on norepinephrine at 27 mcg/m. Vasopressin at 0.03 units per minute. 0.9 normal saline at 20 mL per hour. She did undergo central line placement and arterial line placement. Follow-up blood gases reveal a pO2 of 295. PCO2 of 48. PH is 7.20 100% FiO2. White count 8.7. Hemoglobin 8.2. Platelets 311. Sodium 134. Potassium 6.3. Chloride 110. Bicarb 13. BUN 81. Creatinine 2.68. Glucose 134. Pro-calcitonin 11.0. She remains on bronchodilators. Continued on antibiotics in the form of Levaquin and cefepime. Her culture positive for group D enterococcus and gram-negative bacilli. Blood culture reveals no growth. The patient is seen today 08/11/2022 in follow-up in the intensive care unit. She did have progressive shortness of breath and hypoxemia and was subsequently intubated and placed on mechanical ventilator yesterday. He is currently on assist control mode with a rate of 20, tidal volume 400, FiO2 50% PEEP of 5. Morning blood gases revealed a PaO2 of 99, pCO2 45, pH 7.30 that was on 60% FiO2. She developed atrial fibrillation requiring amiodarone as well. She is hypotensive and requiring norepinephrine at 55 mcg/m, vasopressin at 0.04 units per minute. She remains on D5W with 3 A of bicarbonate 100 ML's per hour. 0.9 normal saline at 20 ML's per hour. She remains on antibiotics in the form of Levaquin, cefepime and daptomycin. Urine culture is positive for Enterococcus faecalis and Pseudomonas aeruginosa. Blood cultures showing no growth. Chest x-ray reveals no significant change. Stable appearance of the cardiomediastinal structures. Pleural effusion unchanged. No change in bibasilar opacities. White count 12.2. Hemoglobin 8.6. Platelets 349. Sodium 139. Potassium 5.1. Bicarb 22. BUN 79. Creatinine 2.74. Glucose 221. Lactic acid 3.2. Calcium 5.8. Cortisol 45. She is continued on DuoNeb inhalations, Pulmicort and Perforomist inhalations. The patient is seen today 08/12/2022 in follow-up in the intensive care unit. She remains intubated on the mechanical ventilator in assist control mode at a rate of 28, tidal volume 400, FiO2 50% and PEEP of 5. Morning blood gases revealed a pO2 of 115, pCO2 40, pH 7.4. She is currently sedated on propofol at 25 mcg/kg/m. She is on normal saline at 100 mL an hour. She is still requiring pressors in the form of norepinephrine at 55 mcg/m and vasopressin at 0.04 units per minute. She remains on antibiotics in the form of Zerbaxa, Levaquin and daptomycin. Urine culture was positive for Enterococcus faecalis and Pseudomonas aeruginosa. Blood cultures have revealed no growth. Sputum culture pending. White count 6.8. Hemoglobin 8.4. Platelets 268. Sodium 140. Potassium 4.5. BUN 81. Creatinine 2.72. Glucose 162. Calcium 6.0. AST 166. ALT 21. Alk phos 385. Currently in a +3.1 L balance. She is continued on DuoNeb inhalations, Pulmicort and Perforomist inhalations. Objective - Vital Signs Vital signs: Vital Signs Temp 99.1 F 08/12/22 08:00 Pulse 121 H 08/12/22 11:31 Resp 24 08/12/22 10:51 BP 151/54 08/12/22 09:00 Pulse Ox 96 08/12/22 10:00 FiO2 40 08/12/22 10:52 Intake & Output 08/11/22 08/12/22 08/12/22 18:59 06:59 18:59 Intake Total 3186.975 1853.000 774.158 Output Total 1115 810 235 Balance 2071.975 1043.000 539.158 Weight 120.202 kg Intake: IV 2693 303 302 .9 20 220 240 80 .9 3cc/hr 33 33 12 ACETAMINOPHEN IV (For NPO 100 ) 1,000 mg In Empty Bag 1 bag @ 400 mls/hr IVPB Q6HR PRN Rx#:[id number] Calcium Gluconate in NaCl 100 1 gm In Saline 1 100ml. bag @ 100 mls/hr IVPB ONCE [facility] Rx#:[id number] Ceftazidime/Avibactam 0. 100 94 gm In Sodium Chloride 0.9% 100 ml @ 50 mls/hr IVPB Q24H [facility] Rx#: [id number] Dextrose 5% in Water 1, 1200 000 ml @ 100 mls/hr IV . [id number] [facility] with Sodium Bicarb (1 Meq/ml) 150 ml Rx#:[id number] Invasive Line 7 20 30 10 Levofloxacin 500Mg-D5w 100 Pmx 500 mg In Dextrose/ Water 100 100ml.bag @ 100 mls/hr IVPB Q48H [facility] Rx# :[id number] Sodium Chloride 0.9% 500 20 ml 500 ml @ 999 mls/hr IV .Q31M [facility] Rx#:[id number] Sodium Chloride 0.9% 500 1000 ml 500 ml @ 999 mls/hr IV .Q31M [facility] Rx#:[id number] Intake, IV Titration 179.464 4926.000 472.158 Amount ACETAMINOPHEN IV (For NPO 100 ) 1,000 mg In Empty Bag 1 bag @ 400 mls/hr IVPB Q6HR PRN Rx#:[id number] Calcium Gluconate in NaCl 100 2 gm In Saline 1 100ml. bag @ 100 mls/hr IVPB ONCE [facility] Rx#:[id number] Norepinephrine 32 mg In 112.833 250 Sodium Chloride 0.9% 218 ml @ 0.5 MCG/KG/MIN 25. 547 mls/hr IV .Q9H48M [facility] Rx#:[id number] Sodium Chloride 0.9% 1, 1100 400 000 ml @ 100 mls/hr IV . Q10H [facility] Rx#:[id number] Vasopressin 60 unit In 142.494 Sodium Chloride 0.9% 150 ml @ 0.04 UNITS/MIN 6.12 mls/hr IV .Q24H [facility] Rx#: [id number] propofoL 1,000 mg In 138.648 100.000 72.158 Empty Bag 1 bag @ 15 MCG/ KG/MIN 9.81 mls/hr IV . [id number] [facility] Rx#:[id number] Oral 0 Tube Feeding 0 Output: Gastric Drainage 400 200 50 Urine 715 610 185 Other: Voiding Method Indwelling Catheter Indwelling Catheter Indwelling Catheter # Bowel Movements 1 ABP, PAP, CO, CI - Last Documented Arterial Blood Pressure 104/37 - Exam GENERAL EXAM: Intubated, sedated, 87-year-old morbidly obese female, on 50% FiO2 and a PEEP of 5. HEAD: Normocephalic. EYES: Sluggish reaction of pupils, equal size. NOSE: Nasogastric tube secured in place. Clear with pink turbinates. THROAT: Oral endotracheal tube in place. NECK: No masses, no JVD. CHEST: No chest wall deformity. LUNGS: Equal air entry with crackles in the bilateral bases. CVS: S1 and S2 normal with no audible murmur, irregular rhythm. ABDOMEN: No hepatosplenomegaly, normal bowel sounds, no guarding or rigidity. SPINE: No scoliosis or deformity SKIN: No rashes CENTRAL NERVOUS SYSTEM: Sedated, tone is normal in all 4 extremities. EXTREMITIES: There is 1-2+ peripheral edema. Changes of chronic venous stasis. No clubbing, no cyanosis. Peripheral pulses are intact. - Labs CBC & Chem 7: 08/12/22 04:08 08/12/22 04:08 Labs: Abnormal Lab Results - Last 24 Hours (Table) 08/11/22 08/11/22 08/11/22 Range/Units 11:30 11:32 16:05 RBC (3.80-5.40) m/uL Hgb (11.4-16.0) gm/dL Hct (34.0-46.0) % RDW (11.5-15.5) % Metamyelocytes # (Man) (0) k/uL ABG pO2 (83-108) mmHg ABG O2 Saturation (94-97) % ABG Lactic Acid (0.5-1.6) mmol/L Chloride (98-107) mmol/L BUN (7-17) mg/dL Creatinine (0.52-1.04) mg/dL Glucose (74-99) mg/dL POC Glucose (mg/dL) 263 H (70-110) mg/dL Plasma Lactic Acid Russel 2.6 H* 3.3 H* (0.7-2.0) mmol/L Calcium (8.4-10.2) mg/dL Ionized Calcium Leesa (4.5-5.3) mg/dL Magnesium (1.6-2.3) mg/dL AST (14-36) U/L Alkaline Phosphatase (38-126) U/L Total Protein (6.3-8.2) g/dL Albumin (3.5-5.0) g/dL 08/11/22 08/11/22 08/11/22 Range/Units 16:05 18:00 18:03 RBC (3.80-5.40) m/uL Hgb (11.4-16.0) gm/dL Hct (34.0-46.0) % RDW (11.5-15.5) % Metamyelocytes # (Man) (0) k/uL ABG pO2 (83-108) mmHg ABG O2 Saturation (94-97) % ABG Lactic Acid (0.5-1.6) mmol/L Chloride (98-107) mmol/L BUN 81 H (7-17) mg/dL Creatinine 2.77 H (0.52-1.04) mg/dL Glucose 199 H (74-99) mg/dL POC Glucose (mg/dL) 216 H (70-110) mg/dL Plasma Lactic Acid Russel (0.7-2.0) mmol/L Calcium 5.8 L* (8.4-10.2) mg/dL Ionized Calcium Leesa 3.7 L (4.5-5.3) mg/dL Magnesium (1.6-2.3) mg/dL AST (14-36) U/L Alkaline Phosphatase (38-126) U/L Total Protein (6.3-8.2) g/dL Albumin 1.9 L (3.5-5.0) g/dL 08/11/22 08/11/22 08/12/22 Range/Units 23:02 23:07 04:08 RBC (3.80-5.40) m/uL Hgb (11.4-16.0) gm/dL Hct (34.0-46.0) % RDW (11.5-15.5) % Metamyelocytes # (Man) (0) k/uL ABG pO2 (83-108) mmHg ABG O2 Saturation (94-97) % ABG Lactic Acid 3.5 H* (0.5-1.6) mmol/L Chloride 110 H (98-107) mmol/L BUN 81 H (7-17) mg/dL Creatinine 2.72 H (0.52-1.04) mg/dL Glucose 162 H (74-99) mg/dL POC Glucose (mg/dL) 138 H (70-110) mg/dL Plasma Lactic Acid Russel (0.7-2.0) mmol/L Calcium 6.0 L* (8.4-10.2) mg/dL Ionized Calcium Leesa (4.5-5.3) mg/dL Magnesium (1.6-2.3) mg/dL AST 166 H (14-36) U/L Alkaline Phosphatase 385 H (38-126) U/L Total Protein 4.0 L (6.3-8.2) g/dL Albumin 1.8 L (3.5-5.0) g/dL 08/12/22 08/12/22 08/12/22 Range/Units 04:08 04:08 04:08 RBC 3.07 L (3.80-5.40) m/uL Hgb 8.4 L (11.4-16.0) gm/dL Hct 26.3 L (34.0-46.0) % RDW 16.3 H (11.5-15.5) % Metamyelocytes # (Man) 0.14 H (0) k/uL ABG pO2 (83-108) mmHg ABG O2 Saturation (94-97) % ABG Lactic Acid 2.4 H* (0.5-1.6) mmol/L Chloride (98-107) mmol/L BUN (7-17) mg/dL Creatinine (0.52-1.04) mg/dL Glucose (74-99) mg/dL POC Glucose (mg/dL) (70-110) mg/dL Plasma Lactic Acid Russel (0.7-2.0) mmol/L Calcium (8.4-10.2) mg/dL Ionized Calcium [place] (4.5-5.3) mg/dL Magnesium 2.6 H (1.6-2.3) mg/dL AST (14-36) U/L Alkaline Phosphatase (38-126) U/L Total Protein (6.3-8.2) g/dL Albumin (3.5-5.0) g/dL 08/12/22 08/12/22 08/12/22 Range/Units 05:42 05:43 11:28 RBC (3.80-5.40) m/uL Hgb (11.4-16.0) gm/dL Hct (34.0-46.0) % RDW (11.5-15.5) % Metamyelocytes # (Man) (0) k/uL ABG pO2 115 H (83-108) mmHg ABG O2 Saturation 98.5 H (94-97) % ABG Lactic Acid (0.5-1.6) mmol/L Chloride (98-107) mmol/L BUN (7-17) mg/dL Creatinine (0.52-1.04) mg/dL Glucose (74-99) mg/dL POC Glucose (mg/dL) 148 H 138 H (70-110) mg/dL Plasma Lactic Acid Russel (0.7-2.0) mmol/L Calcium (8.4-10.2) mg/dL Ionized Calcium [place]esa (4.5-5.3) mg/dL Magnesium (1.6-2.3) mg/dL AST (14-36) U/L Alkaline Phosphatase (38-126) U/L Total Protein (6.3-8.2) g/dL Albumin (3.5-5.0) g/dL Microbiology - Last 24 Hours (Table) 08/11/22 17:06 Gram Stain - Preliminary Sputum Sputum Culture - Preliminary 08/08/22 13:30 Blood Culture Gram Stain - Preliminary Blood 08/10/22 17:00 Blood Culture - Preliminary Blood No Growth after 24 hours 08/09/22 14:19 Blood Culture - Preliminary Blood No Growth after 48 hours 08/08/22 13:00 Blood Culture - Preliminary Blood No Growth after 72 hours Assessment and Plan Assessment: Syncope suspect secondary to hypotension related to urinary tract infection, sepsis. Urine culture positive for Enterococcus faecalis and Pseudomonas aeruginosa Septic shock secondary to above, now requiring pressor support in the form of norepinephrine and vasopressin Acute on chronic hypoxemic respiratory failure secondary to suspected diastolic congestive heart failure. The patient did deteriorate on 08/10/2022 requiring intubation mechanical ventilatory support. Leukocytosis secondary to urinary tract infection Previous history of urinary tract infections History of atrial fibrillation on Eliquis in the outpatient Acute on chronic kidney disease Recent COVID-19 infection History of valvular heart disease with aortic valve stenosis and preserved LV function Chronic changes in the right lower lobe with small right pleural effusion Acute on chronic anemia my current hemoglobin 8.4 History of chronic obstructive pulmonary disease History of prior tobacco dependence History of diastolic congestive heart failure History of coronary disease with multiple stent placements History of CVA/TIA History of diabetes mellitus Morbid obesity Hypertension Hyperlipidemia Hypothyroidism Poor overall functional performance based on the above-mentioned multiple comorbidities with recent stay and ECF Plan: The patient was seen and evaluated Chest x-ray, ABGs, labs and medications reviewed FiO2 decreased to 40% Continue Levaquin, Zerbaxa, daptomycin Remains on high doses of pressors Heparin drip for now, on Eliquis in the outpatient setting Overall prognosis remains poor We will continue to follow and make further recommendations based on her clinic al status I have personally seen and examined the patient, performed the documentation and the assessment and plan as written. Number of minutes spent on the visit: 15.
[2022-08-12] MEDS: VASOPRESSIN 60 UNIT in SODIUM CHLORIDE 0.9% 150 ML IV SCH (12:00)
[2022-08-12] MEDS ORDERED: HEPARIN SOD,PORK IN 0.45% NACL 25,000 UNIT in 0.45% NACL 1 250ML.BAG IV SCH (12:00)
[2022-08-12] MEDS ORDERED: SODIUM CHLORIDE 0.9% 1,000 ML IV ONE (13:03)
[2022-08-12] MEDS ORDERED: HEPARIN SODIUM 1,000 UN/ML (10ML VL) IV PRN (14:52)
[2022-08-12 15:34] LABS: Anisocytosis Slight; Basophils # (A) 0.1 k/uL (0-0.2); Basophils % (A) 1 %; Eosinophils % (A) 0 %; HCT 24.9 % (34.0-46.0); Hypochromasia Moderate; Lymphocytes # (A) 0.9 k/uL (1.0-4.8); Lymphocytes % (A) 13 %; MCH 27.6 pg (25.0-35.0); MCHC 32.2 g/dL (31.0-37.0); MCV 85.6 fL (80.0-100.0); Monocytes # (A) 0.5 k/uL (0-1.0); Monocytes % (A) 7 %; Neutrophils # (A) 5.3 k/uL (1.3-7.7); Neutrophils % (A) 75 %; Platelet Count 246 k/uL (150-450); RBC 2.91 m/uL (3.80-5.40); RDW 16.2 % (11.5-15.5); WBC 7.2 k/uL (3.8-10.6)
--- NOTE | 2022-08-12 16:46 | P.PN ---
Subjective Progress Note Date: 08/12/22 Family at bedside. She is on vent. She is on multiple pressors. She had a smear of BM per nurse. She is having fevers. CODE status still FULL CODE. Abdomen palpated obese, no peritonitis. HR elevates with palpation to lower abdomen. Overall, patient is not a surgical candidate with high risk of mortality as discussed with daughter, , family at bedside. Poor prognosis. May benefit from palliative care/hospice. Objective - Vital Signs Vital signs: Vital Signs Temp 100.4 F H 08/12/22 12:45 Pulse 110 H 08/12/22 16:24 Resp 28 H 08/12/22 14:00 BP 151/54 08/12/22 09:00 Pulse Ox 97 08/12/22 14:00 FiO2 40 08/12/22 16:10 Intake & Output 08/11/22 08/12/22 08/12/22 18:59 06:59 18:59 Intake Total 3186.975 7561.874 7961.808 Output Total 1115 810 585 Balance 2071.975 9630.174 4151.808 Weight 120.202 kg Intake: IV 2693 303 1404 .9 20 220 240 160 .9 3cc/hr 33 33 24 ACETAMINOPHEN IV (For NPO 100 ) 1,000 mg In Empty Bag 1 bag @ 400 mls/hr IVPB Q6HR PRN Rx#:[id number] Calcium Gluconate in NaCl 100 1 gm In Saline 1 100ml. bag @ 100 mls/hr IVPB ONCE ONE Rx#:[id number] Ceftazidime/Avibactam 0. 100 94 gm In Sodium Chloride 0.9% 100 ml @ 50 mls/hr IVPB Q24H [facility] Rx#: [id number] Dextrose 5% in Water 1, 1200 000 ml @ 100 mls/hr IV . [id number] [facility] with Sodium Bicarb (1 Meq/ml) 150 ml Rx#:[id number] Invasive Line 7 20 30 20 Levofloxacin 500Mg-D5w 100 Pmx 500 mg In Dextrose/ Water 100 100ml.bag @ 100 mls/hr IVPB Q48H [facility] Rx# :[id number] Sodium Chloride 0.9% 1, 1000 000 ml @ 999 mls/hr IV . Q1H1M ONE Rx#:[id number] Sodium Chloride 0.9% 500 20 ml 500 ml @ 999 mls/hr IV .Q31M [facility] Rx#:[id number] Sodium Chloride 0.9% 500 1000 ml 500 ml @ 999 mls/hr IV .Q31M [facility] Rx#:[id number] Intake, IV Titration 405.293 4138.000 831.808 Amount ACETAMINOPHEN IV (For NPO 100 ) 1,000 mg In Empty Bag 1 bag @ 400 mls/hr IVPB Q6HR PRN Rx#:[id number] Calcium Gluconate in NaCl 100 2 gm In Saline 1 100ml. bag @ 100 mls/hr IVPB ONCE ONE Rx#:[id number] Norepinephrine 32 mg In 112.833 250 250 Sodium Chloride 0.9% 218 ml @ 0.5 MCG/KG/MIN 25. 547 mls/hr IV .Q9H48M [facility] Rx#:[id number] Sodium Chloride 0.9% 1, 1100 400 000 ml @ 100 mls/hr IV . Q10H [facility] Rx#:[id number] Vasopressin 60 unit In 142.494 109.65 Sodium Chloride 0.9% 150 ml @ 0.04 UNITS/MIN 6.12 mls/hr IV .Q24H [facility] Rx#: [id number] propofoL 1,000 mg In 138.648 100.000 72.158 Empty Bag 1 bag @ 15 MCG/ KG/MIN 9.81 mls/hr IV . [id number] [facility] Rx#:[id number] Oral 0 Tube Feeding 0 Output: Gastric Drainage 400 200 50 Urine 715 610 535 Other: Voiding Method Indwelling Catheter Indwelling Catheter Indwelling Catheter # Bowel Movements 1 ABP, PAP, CO, CI - Last Documented Arterial Blood Pressure 113/45 - Labs CBC & Chem 7: 08/12/22 15:00 08/12/22 04:08 Labs: Abnormal Lab Results - Last 24 Hours (Table) 08/11/22 08/11/22 08/11/22 Range/Units 16:05 16:05 18:00 RBC (3.80-5.40) m/uL Hgb (11.4-16.0) gm/dL Hct (34.0-46.0) % RDW (11.5-15.5) % Lymphocytes # (1.0-4.8) k/uL Metamyelocytes # (Man) (0) k/uL ABG pO2 (83-108) mmHg ABG O2 Saturation (94-97) % ABG Lactic Acid (0.5-1.6) mmol/L Chloride (98-107) mmol/L BUN 81 H (7-17) mg/dL Creatinine 2.77 H (0.52-1.04) mg/dL Glucose 199 H (74-99) mg/dL POC Glucose (mg/dL) (70-110) mg/dL Plasma Lactic Acid Russel 3.3 H* (0.7-2.0) mmol/L Calcium 5.8 L* (8.4-10.2) mg/dL Ionized Calcium Leesa 3.7 L (4.5-5.3) mg/dL Magnesium (1.6-2.3) mg/dL AST (14-36) U/L Alkaline Phosphatase (38-126) U/L Total Protein (6.3-8.2) g/dL Albumin 1.9 L (3.5-5.0) g/dL 08/11/22 08/11/22 08/11/22 Range/Units 18:03 23:02 23:07 RBC (3.80-5.40) m/uL Hgb (11.4-16.0) gm/dL Hct (34.0-46.0) % RDW (11.5-15.5) % Lymphocytes # (1.0-4.8) k/uL Metamyelocytes # (Man) (0) k/uL ABG pO2 (83-108) mmHg ABG O2 Saturation (94-97) % ABG Lactic Acid 3.5 H* (0.5-1.6) mmol/L Chloride (98-107) mmol/L BUN (7-17) mg/dL Creatinine (0.52-1.04) mg/dL Glucose (74-99) mg/dL POC Glucose (mg/dL) 216 H 138 H (70-110) mg/dL Plasma Lactic Acid Russel (0.7-2.0) mmol/L Calcium (8.4-10.2) mg/dL Ionized Calcium Leesa (4.5-5.3) mg/dL Magnesium (1.6-2.3) mg/dL AST (14-36) U/L Alkaline Phosphatase (38-126) U/L Total Protein (6.3-8.2) g/dL Albumin (3.5-5.0) g/dL 08/12/22 08/12/22 08/12/22 Range/Units 04:08 04:08 04:08 RBC 3.07 L (3.80-5.40) m/uL Hgb 8.4 L (11.4-16.0) gm/dL Hct 26.3 L (34.0-46.0) % RDW 16.3 H (11.5-15.5) % Lymphocytes # (1.0-4.8) k/uL Metamyelocytes # (Man) 0.14 H (0) k/uL ABG pO2 (83-108) mmHg ABG O2 Saturation (94-97) % ABG Lactic Acid (0.5-1.6) mmol/L Chloride 110 H (98-107) mmol/L BUN 81 H (7-17) mg/dL Creatinine 2.72 H (0.52-1.04) mg/dL Glucose 162 H (74-99) mg/dL POC Glucose (mg/dL) (70-110) mg/dL Plasma Lactic Acid Russel (0.7-2.0) mmol/L Calcium 6.0 L* (8.4-10.2) mg/dL Ionized Calcium Leesa (4.5-5.3) mg/dL Magnesium 2.6 H (1.6-2.3) mg/dL AST 166 H (14-36) U/L Alkaline Phosphatase 385 H (38-126) U/L Total Protein 4.0 L (6.3-8.2) g/dL Albumin 1.8 L (3.5-5.0) g/dL 08/12/22 08/12/22 08/12/22 Range/Units 04:08 05:42 05:43 RBC (3.80-5.40) m/uL Hgb (11.4-16.0) gm/dL Hct (34.0-46.0) % RDW (11.5-15.5) % Lymphocytes # (1.0-4.8) k/uL Metamyelocytes # (Man) (0) k/uL ABG pO2 115 H (83-108) mmHg ABG O2 Saturation 98.5 H (94-97) % ABG Lactic Acid 2.4 H* (0.5-1.6) mmol/L Chloride (98-107) mmol/L BUN (7-17) mg/dL Creatinine (0.52-1.04) mg/dL Glucose (74-99) mg/dL POC Glucose (mg/dL) 148 H (70-110) mg/dL Plasma Lactic Acid Russel (0.7-2.0) mmol/L Calcium (8.4-10.2) mg/dL Ionized Calcium Leesa (4.5-5.3) mg/dL Magnesium (1.6-2.3) mg/dL AST (14-36) U/L Alkaline Phosphatase (38-126) U/L Total Protein (6.3-8.2) g/dL Albumin (3.5-5.0) g/dL 08/12/22 08/12/22 Range/Units 11:28 15:00 RBC 2.91 L (3.80-5.40) m/uL Hgb 8.0 L (11.4-16.0) gm/dL Hct 24.9 L (34.0-46.0) % RDW 16.2 H (11.5-15.5) % Lymphocytes # 0.9 L (1.0-4.8) k/uL Metamyelocytes # (Man) (0) k/uL ABG pO2 (83-108) mmHg ABG O2 Saturation (94-97) % ABG Lactic Acid (0.5-1.6) mmol/L Chloride (98-107) mmol/L BUN (7-17) mg/dL Creatinine (0.52-1.04) mg/dL Glucose (74-99) mg/dL POC Glucose (mg/dL) 138 H (70-110) mg/dL Plasma Lactic Acid Russel (0.7-2.0) mmol/L Calcium (8.4-10.2) mg/dL Ionized Calcium Leesa (4.5-5.3) mg/dL Magnesium (1.6-2.3) mg/dL AST (14-36) U/L Alkaline Phosphatase (38-126) U/L Total Protein (6.3-8.2) g/dL Albumin (3.5-5.0) g/dL Microbiology - Last 24 Hours (Table) 08/08/22 13:00 Blood Culture - Preliminary Blood No Growth after 96 hours 08/11/22 17:06 Gram Stain - Preliminary Sputum Sputum Culture - Preliminary Ange albicans 08/08/22 13:30 Blood Culture Gram Stain - Preliminary Blood 08/10/22 17:00 Blood Culture - Preliminary Blood No Growth after 24 hours 08/09/22 14:19 Blood Culture - Preliminary Blood No Growth after 48 hours
[2022-08-12 16:56] LABS: INR 1.2 (<1.2)
[2022-08-12 17:44] LABS: Glucose,Whole Blood 102 mg/dL (70-110)
--- NOTE | 2022-08-12 20:43 | P.PN ---
Subjective Progress Note Date: 08/12/22 Principal diagnosis: Sepsis/septic shock Patient is a 87-year-old female with multiple comorbidities presented to the hospital with a syncopal episode weakness subsequently hypotension, sepsis requiring transfer to the ICU and intubation on the vent. On today's evaluation that is 08/12/2022, the patient fever pattern has slightly improved, the patient is still requiring pressor support to maintain her blood pressure per the nursing staff, FiO2 is currently down to 40 %, no significant purulent secretions through the ET, and no diarrhea has been reported Objective - Vital Signs Vital signs: Vital Signs Temp 99.1 F 08/12/22 08:00 Pulse 133 H 08/12/22 09:00 Resp 22 08/12/22 09:00 BP 151/54 08/12/22 09:00 Pulse Ox 99 08/12/22 09:00 FiO2 50 08/12/22 09:06 Intake & Output 08/11/22 08/12/22 08/12/22 18:59 06:59 18:59 Intake Total 3186.975 1853.000 379 Output Total 1115 810 185 Balance 2071.975 1043.000 194 Weight 120.202 kg Intake: IV 2693 303 79 .9 20 220 240 60 .9 3cc/hr 33 33 9 ACETAMINOPHEN IV (For NPO 100 ) 1,000 mg In Empty Bag 1 bag @ 400 mls/hr IVPB Q6HR PRN Rx#:[id number] Calcium Gluconate in NaCl 100 1 gm In Saline 1 100ml. bag @ 100 mls/hr IVPB ONCE ONE Rx#:[id number] Dextrose 5% in Water 1, 1200 000 ml @ 100 mls/hr IV . [id number] [facility] with Sodium Bicarb (1 Meq/ml) 150 ml Rx#:[id number] Invasive Line 7 20 30 10 Sodium Chloride 0.9% 500 20 ml 500 ml @ 999 mls/hr IV .Q31M [facility] Rx#:[id number] Sodium Chloride 0.9% 500 1000 ml 500 ml @ 999 mls/hr IV .Q31M [facility] Rx#:[id number] Intake, IV Titration 344.124 7226.000 300 Amount ACETAMINOPHEN IV (For NPO 100 ) 1,000 mg In Empty Bag 1 bag @ 400 mls/hr IVPB Q6HR PRN Rx#:[id number] Calcium Gluconate in NaCl 100 2 gm In Saline 1 100ml. bag @ 100 mls/hr IVPB ONCE ONE Rx#:[id number] Norepinephrine 32 mg In 112.833 250 Sodium Chloride 0.9% 218 ml @ 0.5 MCG/KG/MIN 25. 547 mls/hr IV .Q9H48M [facility] Rx#:[id number] Sodium Chloride 0.9% 1, 1100 300 000 ml @ 100 mls/hr IV . Q10H [facility] Rx#:[id number] Vasopressin 60 unit In 142.494 Sodium Chloride 0.9% 150 ml @ 0.04 UNITS/MIN 6.12 mls/hr IV .Q24H [facility] Rx#: [id number] propofoL 1,000 mg In 138.648 100.000 Empty Bag 1 bag @ 15 MCG/ KG/MIN 9.81 mls/hr IV . [id number] [facility] Rx#:[id number] Oral 0 Tube Feeding 0 Output: Gastric Drainage 400 200 50 Urine 715 610 135 Other: Voiding Method Indwelling Catheter Indwelling Catheter # Bowel Movements 1 ABP, PAP, CO, CI - Last Documented Arterial Blood Pressure 103/35 - Exam GENERAL DESCRIPTION: An elderly female intubated on the vent RESPIRATORY SYSTEM: Unlabored breathing , decreased breath sounds at bases HEART: S1 S2 regular rate and rhythm , ABDOMEN: Soft , no tenderness EXTREMITIES: Lower extremity swelling no redness - Labs CBC & Chem 7: 08/12/22 15:00 08/12/22 04:08 Labs: Abnormal Lab Results - Last 24 Hours (Table) 08/11/22 08/11/22 08/11/22 Range/Units 11:30 11:32 16:05 RBC (3.80-5.40) m/uL Hgb (11.4-16.0) gm/dL Hct (34.0-46.0) % RDW (11.5-15.5) % Metamyelocytes # (Man) (0) k/uL ABG pO2 (83-108) mmHg ABG O2 Saturation (94-97) % ABG Lactic Acid (0.5-1.6) mmol/L Chloride (98-107) mmol/L BUN (7-17) mg/dL Creatinine (0.52-1.04) mg/dL Glucose (74-99) mg/dL POC Glucose (mg/dL) 263 H (70-110) mg/dL Plasma Lactic Acid Russel 2.6 H* 3.3 H* (0.7-2.0) mmol/L Calcium (8.4-10.2) mg/dL Ionized Calcium Leesa (4.5-5.3) mg/dL Magnesium (1.6-2.3) mg/dL AST (14-36) U/L Alkaline Phosphatase (38-126) U/L Total Protein (6.3-8.2) g/dL Albumin (3.5-5.0) g/dL 08/11/22 08/11/22 08/11/22 Range/Units 16:05 18:00 18:03 RBC (3.80-5.40) m/uL Hgb (11.4-16.0) gm/dL Hct (34.0-46.0) % RDW (11.5-15.5) % Metamyelocytes # (Man) (0) k/uL ABG pO2 (83-108) mmHg ABG O2 Saturation (94-97) % ABG Lactic Acid (0.5-1.6) mmol/L Chloride (98-107) mmol/L BUN 81 H (7-17) mg/dL Creatinine 2.77 H (0.52-1.04) mg/dL Glucose 199 H (74-99) mg/dL POC Glucose (mg/dL) 216 H (70-110) mg/dL Plasma Lactic Acid Russel (0.7-2.0) mmol/L Calcium 5.8 L* (8.4-10.2) mg/dL Ionized Calcium Leesa 3.7 L (4.5-5.3) mg/dL Magnesium (1.6-2.3) mg/dL AST (14-36) U/L Alkaline Phosphatase (38-126) U/L Total Protein (6.3-8.2) g/dL Albumin 1.9 L (3.5-5.0) g/dL 08/11/22 08/11/22 08/12/22 Range/Units 23:02 23:07 04:08 RBC (3.80-5.40) m/uL Hgb (11.4-16.0) gm/dL Hct (34.0-46.0) % RDW (11.5-15.5) % Metamyelocytes # (Man) (0) k/uL ABG pO2 (83-108) mmHg ABG O2 Saturation (94-97) % ABG Lactic Acid 3.5 H* (0.5-1.6) mmol/L Chloride 110 H (98-107) mmol/L BUN 81 H (7-17) mg/dL Creatinine 2.72 H (0.52-1.04) mg/dL Glucose 162 H (74-99) mg/dL POC Glucose (mg/dL) 138 H (70-110) mg/dL Plasma Lactic Acid Russel (0.7-2.0) mmol/L Calcium 6.0 L* (8.4-10.2) mg/dL Ionized Calcium Leesa (4.5-5.3) mg/dL Magnesium (1.6-2.3) mg/dL AST 166 H (14-36) U/L Alkaline Phosphatase 385 H (38-126) U/L Total Protein 4.0 L (6.3-8.2) g/dL Albumin 1.8 L (3.5-5.0) g/dL 08/12/22 08/12/22 08/12/22 Range/Units 04:08 04:08 04:08 RBC 3.07 L (3.80-5.40) m/uL Hgb 8.4 L (11.4-16.0) gm/dL Hct 26.3 L (34.0-46.0) % RDW 16.3 H (11.5-15.5) % Metamyelocytes # (Man) 0.14 H (0) k/uL ABG pO2 (83-108) mmHg ABG O2 Saturation (94-97) % ABG Lactic Acid 2.4 H* (0.5-1.6) mmol/L Chloride (98-107) mmol/L BUN (7-17) mg/dL Creatinine (0.52-1.04) mg/dL Glucose (74-99) mg/dL POC Glucose (mg/dL) (70-110) mg/dL Plasma Lactic Acid Russel (0.7-2.0) mmol/L Calcium (8.4-10.2) mg/dL Ionized Calcium Leesa (4.5-5.3) mg/dL Magnesium 2.6 H (1.6-2.3) mg/dL AST (14-36) U/L Alkaline Phosphatase (38-126) U/L Total Protein (6.3-8.2) g/dL Albumin (3.5-5.0) g/dL 08/12/22 08/12/22 Range/Units 05:42 05:43 RBC (3.80-5.40) m/uL Hgb (11.4-16.0) gm/dL Hct (34.0-46.0) % RDW (11.5-15.5) % Metamyelocytes # (Man) (0) k/uL ABG pO2 115 H (83-108) mmHg ABG O2 Saturation 98.5 H (94-97) % ABG Lactic Acid (0.5-1.6) mmol/L Chloride (98-107) mmol/L BUN (7-17) mg/dL Creatinine (0.52-1.04) mg/dL Glucose (74-99) mg/dL POC Glucose (mg/dL) 148 H (70-110) mg/dL Plasma Lactic Acid Russel (0.7-2.0) mmol/L Calcium (8.4-10.2) mg/dL Ionized Calcium Leesa (4.5-5.3) mg/dL Magnesium (1.6-2.3) mg/dL AST (14-36) U/L Alkaline Phosphatase (38-126) U/L Total Protein (6.3-8.2) g/dL Albumin (3.5-5.0) g/dL Microbiology - Last 24 Hours (Table) 08/11/22 17:06 Sputum Culture - Preliminary Sputum 08/10/22 17:00 Blood Culture - Preliminary Blood No Growth after 24 hours 08/09/22 14:19 Blood Culture - Preliminary Blood No Growth after 48 hours 08/08/22 13:00 Blood Culture - Preliminary Blood No Growth after 72 hours Assessment and Plan (1) Sepsis Current Visit: Yes Status: Acute Code(s): A41.9 - SEPSIS, UNSPECIFIED ORGANISM SNOMED Code(s): 49143248 (2) UTI (urinary tract infection) Current Visit: No Status: Acute Code(s): N39.0 - URINARY TRACT INFECTION, SITE NOT SPECIFIED SNOMED Code(s): 64655757 Plan: 1patient with sepsis/septic shock in this patient is in the hospital with syncopal episode of weakness patient is now intubated on the vent and requiring high dose pressor support to maintain her blood pressure, the patient is growing gram-negative bacilli in the blood could be related to the urine as she is growing gram-negative as well as enterococcus in the urine versus related to the right lower lobe pneumonia and now there is suspicious for possible abdominal source 2patient with penicillin ALLERGY that would limit the number of antibiotic safe to use,patient with the borderline kidney function has risk of nephrotoxicity 3 urine is showing a drug resistant Pseudomonas , blood culture is growing gram-negative however ID and sensitivities pending, patient to continue with Zerbexa and monitor clinical course closely, prognosis remains to be guarded Time with Patient: Less than 30
[2022-08-12] MEDS: ENOXAPARIN 40 MG/0.4 ML SYRINGE SQ SCH (21:12)
[2022-08-12 23:09] LABS: Glucose,Whole Blood 90 mg/dL (70-110)
[2022-08-13] MEDS: CEFTOLOZANE/TAZOBACTAM 0.75 GM in SODIUM CHLORIDE 0.9% 100 ML IV SCH ×4 (00:24→23:10)
[2022-08-13] MEDS: IPRATROPIUM-ALBUTEROL 3 ML NEB INHALATION SCH ×7 (00:33→23:29)
[2022-08-13] MEDS: SODIUM CHLORIDE 0.9% 1,000 ML IV SCH ×3 (02:22→23:10)
[2022-08-13] MEDS: NOREPINEPHRINE 32 MG in SODIUM CHLORIDE 0.9% 218 ML IV SCH ×2 (02:26→13:46)
[2022-08-13 04:57] LABS: Anisocytosis Slight; HCT 26.2 % (34.0-46.0); HGB 8.2 gm/dL (11.4-16.0); Hypochromasia Moderate; MCH 26.9 pg (25.0-35.0); MCHC 31.4 g/dL (31.0-37.0); MCV 85.4 fL (80.0-100.0); Mean Platelet Volume 8.6; Platelet Count 244 k/uL (150-450); RBC 3.07 m/uL (3.80-5.40); RDW 16.5 % (11.5-15.5); WBC 9.6 k/uL (3.8-10.6)
[2022-08-13 05:22] LABS: Albumin 1.8 g/dL (3.5-5.0); Potassium 3.5 mmol/L (3.5-5.1); Total Bilirubin 0.5 mg/dL (0.2-1.3); Total Protein 3.9 g/dL (6.3-8.2)
[2022-08-13 05:41] LABS: Calcium 5.6 mg/dL (8.4-10.2)
[2022-08-13 05:47] LABS: Glucose,Whole Blood 136 mg/dL (70-110)
[2022-08-13] MEDS: INSULIN ASPART (NovoLOG) 100 UNIT/ML VIAL SQ SCH ×4 (06:05→23:48)
[2022-08-13 06:07] LABS: ABG HCO3 21 mmol/L (21-25); ABG Oxygen Saturation 97.7 % (94-97); ABG PCO2 38 mmHg (35-45); ABG PH 7.35 (7.35-7.45); ABG PO2 100 mmHg (83-108); ABG TCO2 22 mmol/L (19-24)
[2022-08-13] MEDS: VASOPRESSIN 60 UNIT in SODIUM CHLORIDE 0.9% 150 ML IV SCH (06:17)
[2022-08-13] MEDS: INSULIN DETEMIR (LEVEMIR) 100 UNIT/ML SYR SQ SCH (06:36)
[2022-08-13] MEDS: POTASSIUM CHLORIDE 20 MEQ in WATER FOR INJECTION 1 100ML.BAG IVPB SCH ×2 (06:38→08:28)
[2022-08-13] MEDS ORDERED: CALCIUM GLUCONATE IN NACL 2 GM in SALINE 1 100ML.BAG IVPB ONE (07:00)
--- NOTE | 2022-08-13 07:35 | XR ---
EXAMINATION TYPE: XR chest 1V portable DATE OF EXAM: 08/13/2022 6:05 AM COMPARISON: Chest radiograph from one day prior. TECHNIQUE: XR chest 1V portable Portable AP radiograph of the chest. CLINICAL INDICATION:Female, 87 years old with history of Tube placement; FINDINGS: Lungs/Pleura: Similar bibasilar airspace opacities. No evidence of pneumothorax or pleural effusion. Pulmonary vascularity: Unremarkable. Heart/mediastinum: Cardiomediastinal silhouette is unremarkable. Musculoskeletal: No acute osseous pathology. Lines/Tubes: Endotracheal tube with distal tip 4.5 cm above the amalia. Nasogastric tube with its distal tip and side-port projecting under the diaphragm. IMPRESSION: 1. Similar bibasilar airspace opacities. 2. Stable support lines and tubes.
[2022-08-13] MEDS: FORMOTEROL FUMARATE 20 MCG/2 ML NEBU INHALATION SCH ×2 (07:52→20:29)
[2022-08-13] MEDS: BUDESONIDE 1 MG/2 ML NEBU INHALATION SCH ×2 (07:52→20:29)
[2022-08-13] MEDS: AMIODARONE 200 MG TAB PO SCH (08:21)
[2022-08-13] MEDS: TAMSULOSIN 0.4 MG CAP.ER.24H PO SCH (08:21)
[2022-08-13] MEDS: polyethylene glycoL 3350 17 GM POWD.PACK PO SCH ×2 (08:21→20:04)
[2022-08-13] MEDS: PANTOPRAZOLE 40 MG/10 ML VIAL IVP SCH (08:28)
[2022-08-13] MEDS: CHLORHEXIDINE GLUCONATE 15 ML CUP MUCOUS MEM SCH ×2 (08:28→20:10)
[2022-08-13] MEDS ORDERED: ANIDULAFUNGIN 200 MG in SODIUM CHLORIDE 0.9% 200 ML IVPB ONE (09:00)
[2022-08-13] MEDS ORDERED: DEXTROSE 5% IN WATER 100 ML with AMIODARONE 150 MG IV ONE (09:20)
[2022-08-13] MEDS ORDERED: AMIODARONE 360 MG in DEXTROSE 5% IN WATER 200 ML IV ONE ×2 (09:30)
--- NOTE | 2022-08-13 11:11 | P.PN ---
Subjective Progress Note Date: 08/13/22 Principal diagnosis: This is a 87-year-old female seen in consultation because of acute kidney injury. Her blood culture grew yeast, urine grew enterococcus and Pseudomonas Currently she is on the ventilator at 40% FiO2 on vasopressin and levo fed. Blood pressure is somewhat better urine output is improved. Remains febrile with low-grade temperature 24-hour intake is 3481 and output is 3170 are diabetes 2920 is urine output, 250 mL of NG output. History of present illness: Patient is a 87-year-old female seen in consultation for acute kidney injury. Patient's creatinine in June 2022 was as low as 0.84. This admission and was elevated at 1.5 and is up at 2.68 today. Patient presented to the hospital on 08/08/2022 due to shortness of breath. Patient had a syncopal episode while she was on the toilet. Patient was brought to the hospital by the EMS. Patient was transferred to the ICU early this morning due to hypotension. Patient has received 4.5 L of normal saline bolus in the last 24 hours. She was switched over to bicarb drip this morning due to severe acidosis. Potassium was 6.3 as morning which was medically treated. Patient is currently on Levophed as well as vasopressin. Despite receiving IV Lasix patient's urine output remains low. Patient has history of diabetes. She was taking metformin outpatient which is currently held. I don't see any nonsteroidals in her home medication list. Case discussed with the daughter was present at bedside. Objective - Vital Signs Vital signs: Vital Signs Temp 98.3 F 08/13/22 08:00 Pulse 131 H 08/13/22 10:00 Resp 28 H 08/13/22 10:00 BP 125/60 08/13/22 03:45 Pulse Ox 98 08/13/22 10:00 FiO2 40 08/13/22 08:00 Intake & Output 08/12/22 08/13/22 08/13/22 18:59 06:59 18:59 Intake Total 2655.912 826.026 836.582 Output Total 1370 1800 780 Balance 1285.912 -973.974 56.582 Weight 121.45 kg Intake: IV 1606 306 772 .9 20 240 240 60 .9 3cc/hr 36 36 12 Anidulafungin 200 mg In 200 Sodium Chloride 0.9% 200 ml @ 84 mls/hr IVPB ONCE ONE Rx#:[id number] Ceftazidime/Avibactam 0. 200 100 94 gm In Sodium Chloride 0.9% 100 ml @ 50 mls/hr IVPB Q24H [facility] Rx#: [id number] Invasive Line 7 30 30 Levofloxacin 500Mg-D5w 100 Pmx 500 mg In Dextrose/ Water 100 100ml.bag @ 100 mls/hr IVPB Q48H [facility] Rx# :[id number] Potassium Chloride 20 meq 100 In Water For Injection 1 100ml.bag @ 50 mls/hr IVPB Q2H [facility] Rx#: [id number] Sodium Chloride 0.9% 1, 300 000 ml @ 100 mls/hr IV . Q10H [facility] Rx#:[id number] Sodium Chloride 0.9% 1, 1000 000 ml @ 999 mls/hr IV . Q1H1M [facility] Rx#:[id number] Intake, IV Titration 1049.912 520.026 64.582 Amount Norepinephrine 32 mg In 429.681 273.797 64.582 Sodium Chloride 0.9% 218 ml @ 0.5 MCG/KG/MIN 25. 547 mls/hr IV .Q9H48M [facility] Rx#:[id number] Sodium Chloride 0.9% 1, 400 000 ml @ 100 mls/hr IV . Q10H [facility] Rx#:[id number] Vasopressin 60 unit In 109.65 111.894 Sodium Chloride 0.9% 150 ml @ 0.04 UNITS/MIN 6.12 mls/hr IV .Q24H [facility] Rx#: [id number] propofoL 1,000 mg In 72.158 Empty Bag 1 bag @ 15 MCG/ KG/MIN 9.81 mls/hr IV . [id number] [facility] Rx#:[id number] propofoL 1,000 mg In 38.423 134.335 Empty Bag 1 bag @ 15 MCG/ KG/MIN 9.81 mls/hr IV . [id number] [facility] Rx#:[id number] Output: Gastric Drainage 200 50 150 Urine 1170 1750 630 Other: Voiding Method Indwelling Catheter Indwelling Catheter Indwelling Catheter ABP, PAP, CO, CI - Last Documented Arterial Blood Pressure 116/50 When dependent respiratory failure on 40% FiO2 Lungs are clear to auscultation Heart sounds unremarkable. Abdomen soft Extremities arms minimal edema Neurologically obtunded - Labs CBC & Chem 7: 08/13/22 04:32 08/13/22 04:32 Labs: Abnormal Lab Results - Last 24 Hours (Table) 08/12/22 08/12/22 08/12/22 Range/Units 11:28 15:00 15:00 RBC 2.91 L (3.80-5.40) m/uL Hgb 8.0 L (11.4-16.0) gm/dL Hct 24.9 L (34.0-46.0) % RDW 16.2 H (11.5-15.5) % Lymphocytes # 0.9 L (1.0-4.8) k/uL INR 1.2 H (<1.2) ABG O2 Saturation (94-97) % Chloride (98-107) mmol/L Carbon Dioxide (22-30) mmol/L BUN (7-17) mg/dL Creatinine (0.52-1.04) mg/dL Glucose (74-99) mg/dL POC Glucose (mg/dL) 138 H (70-110) mg/dL Calcium (8.4-10.2) mg/dL AST (14-36) U/L Alkaline Phosphatase (38-126) U/L Total Protein (6.3-8.2) g/dL Albumin (3.5-5.0) g/dL 08/13/22 08/13/22 08/13/22 Range/Units 04:32 04:32 05:45 RBC 3.07 L (3.80-5.40) m/uL Hgb 8.2 L (11.4-16.0) gm/dL Hct 26.2 L (34.0-46.0) % RDW 16.5 H (11.5-15.5) % Lymphocytes # (1.0-4.8) k/uL INR (<1.2) ABG O2 Saturation (94-97) % Chloride 113 H (98-107) mmol/L Carbon Dioxide 20 L (22-30) mmol/L BUN 75 H (7-17) mg/dL Creatinine 2.52 H (0.52-1.04) mg/dL Glucose 159 H (74-99) mg/dL POC Glucose (mg/dL) 136 H (70-110) mg/dL Calcium 5.6 L* (8.4-10.2) mg/dL AST 162 H (14-36) U/L Alkaline Phosphatase 363 H (38-126) U/L Total Protein 3.9 L (6.3-8.2) g/dL Albumin 1.8 L (3.5-5.0) g/dL 08/13/22 Range/Units 06:01 RBC (3.80-5.40) m/uL Hgb (11.4-16.0) gm/dL Hct (34.0-46.0) % RDW (11.5-15.5) % Lymphocytes # (1.0-4.8) k/uL INR (<1.2) ABG O2 Saturation 97.7 H (94-97) % Chloride (98-107) mmol/L Carbon Dioxide (22-30) mmol/L BUN (7-17) mg/dL Creatinine (0.52-1.04) mg/dL Glucose (74-99) mg/dL POC Glucose (mg/dL) (70-110) mg/dL Calcium (8.4-10.2) mg/dL AST (14-36) U/L Alkaline Phosphatase (38-126) U/L Total Protein (6.3-8.2) g/dL Albumin (3.5-5.0) g/dL Microbiology - Last 24 Hours (Table) 08/11/22 17:06 Gram Stain - Final Sputum Sputum Culture - Final Ange albicans 08/11/22 16:05 Blood Culture Gram Stain - Preliminary Blood 08/11/22 16:05 Blood Culture - Final Blood 08/10/22 17:00 Blood Culture - Preliminary Blood No Growth after 48 hours 08/09/22 14:19 Blood Culture - Preliminary Blood No Growth after 72 hours 08/08/22 13:00 Blood Culture - Preliminary Blood No Growth after 96 hours 08/08/22 13:30 Blood Culture Gram Stain - Preliminary Blood Assessment and Plan Assessment: Impression 1. Acute kidney injury secondary to prerenal from fungemia and urine tract infection with Pseudomonas and enterococcus. Creatinine is improved this morning from 2.72 mg to 2.52. Admission creatinine was 1.5 and peak was 2.77 2. Hypotension secondary to sepsis, on levo fed and vasopressin blood pressure slightly better 3. Ventilator dependent respiratory failure, stable 40% FiO2 3. Left lower lobe pneumonia 4. UTI with Pseudomonas and enterococcus. 5. Hypocalcemia secondary to acute kidney injury. 6. Elevated liver function tests secondary to sepsis Recommendation 1. Maintain inotropic support to keep her mean arterial pressure around 65 or above 2. Avoid any Lasix, other nephrotoxic medications. 3. Prognosis guarded secondary to multiorgan failure with ventilator-dependent failure as well as acute kidney injury. 4. 2 g of IV calcium gluconate given
[2022-08-13 11:32] LABS: Glucose,Whole Blood 91 mg/dL (70-110)
--- NOTE | 2022-08-13 12:05 | P.PN ---
Subjective Progress Note Date: 08/13/22 Principal diagnosis: Sepsis, acute kidney injury, shortness of breath, heart failure, on ventilator at 40% FiO2, on vasopressin and Levophed, blood pressure is improved urinary out put has improved, low-grade temp noted Patient presented to the hospital on 08/08/2022 secondary to shortness of breath hypotension patient had syncopal episode on the toilet, was recently discharged from rehab facility, brought in by EMS, was admitted to the stepdown unit, and subsequently transferred to the intensive care unit where she was placed on BiPAP secondary to severe acidosis and was intubated and placed on pressors , despite multiple boluses of normal saline despite receiving IV Lasix. This patient has a long-standing history of diabetes hypertension Objective - Vital Signs Vital signs: Vital Signs Temp 98.3 F 08/13/22 08:00 Pulse 124 H 08/13/22 11:00 Resp 29 H 08/13/22 11:00 BP 125/60 08/13/22 03:45 Pulse Ox 98 08/13/22 11:00 FiO2 40 08/13/22 08:00 Intake & Output 08/12/22 08/13/22 08/13/22 18:59 06:59 18:59 Intake Total 2655.912 815.252 3185.917 Output Total 1370 1800 1005 Balance 1285.912 -973.974 104.917 Weight 121.45 kg Intake: IV 1661 724 8749 .9 20 240 240 100 .9 3cc/hr 36 36 18 Anidulafungin 200 mg In 200 Sodium Chloride 0.9% 200 ml @ 84 mls/hr IVPB ONCE ONE Rx#:[id number] Ceftazidime/Avibactam 0. 200 100 94 gm In Sodium Chloride 0.9% 100 ml @ 50 mls/hr IVPB Q24H [facility] Rx#: [id number] Invasive Line 7 30 30 Levofloxacin 500Mg-D5w 100 Pmx 500 mg In Dextrose/ Water 100 100ml.bag @ 100 mls/hr IVPB Q48H [facility] Rx# :[id number] Potassium Chloride 20 meq 100 In Water For Injection 1 100ml.bag @ 50 mls/hr IVPB Q2H [facility] Rx#: [id number] Sodium Chloride 0.9% 1, 500 000 ml @ 100 mls/hr IV . Q10H [facility] Rx#:[id number] Sodium Chloride 0.9% 1, 1000 000 ml @ 999 mls/hr IV . Q1H1M [facility] Rx#:[id number] Intake, IV Titration 1049.912 520.026 91.917 Amount Norepinephrine 32 mg In 429.681 273.797 91.917 Sodium Chloride 0.9% 218 ml @ 0.5 MCG/KG/MIN 25. 547 mls/hr IV .Q9H48M [facility] Rx#:[id number] Sodium Chloride 0.9% 1, 400 000 ml @ 100 mls/hr IV . Q10H [facility] Rx#:[id number] Vasopressin 60 unit In 109.65 111.894 Sodium Chloride 0.9% 150 ml @ 0.04 UNITS/MIN 6.12 mls/hr IV .Q24H [facility] Rx#: [id number] propofoL 1,000 mg In 72.158 Empty Bag 1 bag @ 15 MCG/ KG/MIN 9.81 mls/hr IV . [id number] [facility] Rx#:[id number] propofoL 1,000 mg In 38.423 134.335 Empty Bag 1 bag @ 15 MCG/ KG/MIN 9.81 mls/hr IV . [id number] [facility] Rx#:[id number] Output: Gastric Drainage 200 50 150 Urine 1170 1750 855 Other: Voiding Method Indwelling Catheter Indwelling Catheter Indwelling Catheter ABP, PAP, CO, CI - Last Documented Arterial Blood Pressure 122/52 - Exam General: Patient is intubated on a vent HEENT: Normocephalic atraumatic, senescent pattern baldness Neck: [No adenopathy.] Cardiac: [Heart regularly irregular. No S3. No S4. No clicks, rubs. Lungs: Diminished breath sounds bilaterally scattered rhonchi noted Abdomen: [No mass. No organomegaly. Bowel sounds presnt and normoactive in all 4 quadrants. This patient is morbidly obese Extremes: [2+ edema bilateral upper and lower extremes no cyanosis no claudication normal pulses] : Normal female genitalia Skin: [No rash.] Neurologic: Patient is sedated on a ventilatory support Lymphatic: [No adenopathy.] - Labs CBC & Chem 7: 08/13/22 04:32 08/13/22 04:32 Labs: Abnormal Lab Results - Last 24 Hours (Table) 08/12/22 08/12/22 08/13/22 Range/Units 15:00 15:00 04:32 RBC 2.91 L 3.07 L (3.80-5.40) m/uL Hgb 8.0 L 8.2 L (11.4-16.0) gm/dL Hct 24.9 L 26.2 L (34.0-46.0) % RDW 16.2 H 16.5 H (11.5-15.5) % Lymphocytes # 0.9 L (1.0-4.8) k/uL INR 1.2 H (<1.2) ABG O2 Saturation (94-97) % Chloride (98-107) mmol/L Carbon Dioxide (22-30) mmol/L BUN (7-17) mg/dL Creatinine (0.52-1.04) mg/dL Glucose (74-99) mg/dL POC Glucose (mg/dL) (70-110) mg/dL Calcium (8.4-10.2) mg/dL AST (14-36) U/L Alkaline Phosphatase (38-126) U/L Total Protein (6.3-8.2) g/dL Albumin (3.5-5.0) g/dL 08/13/22 08/13/22 08/13/22 Range/Units 04:32 05:45 06:01 RBC (3.80-5.40) m/uL Hgb (11.4-16.0) gm/dL Hct (34.0-46.0) % RDW (11.5-15.5) % Lymphocytes # (1.0-4.8) k/uL INR (<1.2) ABG O2 Saturation 97.7 H (94-97) % Chloride 113 H (98-107) mmol/L Carbon Dioxide 20 L (22-30) mmol/L BUN 75 H (7-17) mg/dL Creatinine 2.52 H (0.52-1.04) mg/dL Glucose 159 H (74-99) mg/dL POC Glucose (mg/dL) 136 H (70-110) mg/dL Calcium 5.6 L* (8.4-10.2) mg/dL AST 162 H (14-36) U/L Alkaline Phosphatase 363 H (38-126) U/L Total Protein 3.9 L (6.3-8.2) g/dL Albumin 1.8 L (3.5-5.0) g/dL Microbiology - Last 24 Hours (Table) 08/11/22 16:05 Blood Culture Gram Stain - Preliminary Blood 08/08/22 13:30 Blood Culture Gram Stain - Preliminary Blood Blood Culture - Preliminary Anaerobic Gm Negative Bacilli 08/11/22 17:06 Gram Stain - Final Sputum Sputum Culture - Final Ange albicans 08/11/22 16:05 Blood Culture - Final Blood 08/10/22 17:00 Blood Culture - Preliminary Blood No Growth after 48 hours 08/09/22 14:19 Blood Culture - Preliminary Blood No Growth after 72 hours 08/08/22 13:00 Blood Culture - Preliminary Blood No Growth after 96 hours Assessment and Plan (1) Sepsis Current Visit: Yes Status: Acute Code(s): A41.9 - SEPSIS, UNSPECIFIED ORGANISM SNOMED Code(s): 82187177 (2) Acquired hypothyroidism Current Visit: No Status: Acute Code(s): E03.9 - HYPOTHYROIDISM, UNSPECIFIED SNOMED Code(s): 611710149 (3) Acute exacerbation of chronic obstructive pulmonary disease Current Visit: No Status: Acute Code(s): J44.1 - CHRONIC OBSTRUCTIVE PULMONARY DISEASE W (ACUTE) EXACERBATION SNOMED Code(s): 023732785 (4) Acute on chronic diastolic (congestive) heart failure Current Visit: No Status: Acute Code(s): I50.33 - ACUTE ON CHRONIC DIASTOLIC (CONGESTIVE) HEART FAILURE SNOMED Code(s): 001581612 (5) Acute on chronic renal failure Current Visit: No Status: Acute Code(s): N17.9 - ACUTE KIDNEY FAILURE, UNSPECIFIED; N18.9 - CHRONIC KIDNEY DISEASE, UNSPECIFIED SNOMED Code(s): 490503768 (6) Acute pulmonary edema Current Visit: No Status: Acute Code(s): J81.0 - ACUTE PULMONARY EDEMA SNOMED Code(s): 21685755 (7) Acute renal failure Current Visit: No Status: Acute Code(s): N17.9 - ACUTE KIDNEY FAILURE, UNSPECIFIED SNOMED Code(s): 27384981 (8) Altered mental status Current Visit: No Status: Acute Code(s): R41.82 - ALTERED MENTAL STATUS, UNSPECIFIED SNOMED Code(s): 818720593 (9) Anemia Current Visit: No Status: Acute Code(s): D64.9 - ANEMIA, UNSPECIFIED SNOMED Code(s): 493200299 (10) CAD (coronary atherosclerotic disease) Current Visit: No Status: Acute Code(s): I25.10 - ATHSCL HEART DISEASE OF [place] CORONARY ARTERY W/O ANG PCTRS SNOMED Code(s): 569087500 (11) CHF (congestive heart failure) Current Visit: No Status: Acute Code(s): I50.9 - HEART FAILURE, UNSPECIFIED SNOMED Code(s): 46636941 (12) CKD (chronic kidney disease) stage 3, GFR 30-59 ml/min Current Visit: No Status: Acute Code(s): N18.30 - CHRONIC KIDNEY DISEASE, STAGE 3 UNSPECIFIED SNOMED Code(s): 215440018 (13) COPD exacerbation Current Visit: No Status: Acute Code(s): J44.1 - CHRONIC OBSTRUCTIVE PULMONARY DISEASE W (ACUTE) EXACERBATION SNOMED Code(s): 026396164 (14) COVID-19 Current Visit: No Status: Acute Code(s): U07.1 - COVID-19 SNOMED Code(s): 421111655 (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 Current Visit: No Status: Acute Code(s): M54.42 - LUMBAGO WITH SCIATICA, LEFT SIDE; M54.41 - LUMBAGO WITH SCIATICA, RIGHT SIDE; G89.29 - OTHER CHRONIC PAIN SNOMED Code(s): 796923873 Plan: Acute kidney injury secondary to urinary sepsis, slowly improving Hypotension secondary to sepsis, improved Acute respiratory failure ventilator dependent Left lower lobe pneumonia Urinary tract infection secondary to Pseudomonas and enterococcus Elevated liver function secondary to sepsis Aggressive supportive care being provided Prognosis guarded secondary to multiorgan failure ventilator dependence and acute kidney injury Time with Patient: Greater than 30
--- NOTE | 2022-08-13 12:14 | P.PN ---
Subjective Progress Note Date: 08/13/22 This is a 87-year-old female patient with a known history of coronary artery disease with previous stent placements, hypothyroidism, morbid obesity, multiple orthopedic surgeries, congestive heart failure, diabetes bella, hypertension, hyperlipidemia, osteoarthritis, obstructive sleep apnea on BiPAP, CVA/TIA, oxygen dependent and she was recently discharged from here to [facility] on the [place] and was just home for 3 days when she developed a syncopal episode yesterday. Her that may related to low blood sugar and try to give her oral issues which she vomited. She was brought into the emergency room yesterday. She is seen today in consultation. She remains in the emergency department. She is sitting up in bed. She is basically just moaning and groaning. Her family is at the bedside and provides him permission. She was initially placed on BiPAP. She is currently on 6 L high flow nasal cannula with O2 saturations in the 90s. Afebrile. Somewhat hypotensive. Blood culture reveals no growth to date. Urine culture pending. White count 19.1. Hemoglobin 8.0. Sodium 136. Potassium 4.6. Bicarb 17. BUN 66. Creatinine 2.27. Glucose 145. D-dimer 4.73. ProBNP 426. Troponin negative 1. CT angiogram ruled out pulmonary embolism. There is evidence of cardiomegaly with pulmonary vascular congestion. Scattered airspace opacities more consolidation in the right lung base. Rule out aspiration. Computed tomography scan of the abdomen and pelvis revealed extensive stool burden throughout the colon. 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 Today's chest x-ray shows Nasogastric tube in place. Mild cardiomegaly with bibasilar acute infiltrate and/or atelectasis. She's been initiated on Symbicort, DuoNeb inhalations, antibiotics in the form of Levaquin. She is anticoagulated with Eliquis. The patient is seen today for per 2022 in follow-up in the intensive care unit. Just after midnight they called an a team on her due to her being obtunded and hypotensive. She was on the sixth liter Ventimask and they do arterial blood gases that revealed a pO2 of 136, pCO2 31, pH 7.28. She was placed on BiPAP 12/5 and 50% and transferred into the intensive care unit. She received 3 A of sodium bicarb. She has D5W with 3 A of sodium bicarb at 75 ML's per hour. She is on norepinephrine at 27 mcg/m. Vasopressin at 0.03 units per minute. 0.9 normal saline at 20 mL per hour. She did undergo central line placement and arterial line placement. Follow-up blood gases reveal a pO2 of 295. PCO2 of 48. PH is 7.20 100% FiO2. White count 8.7. Hemoglobin 8.2. Platelets 311. Sodium 134. Potassium 6.3. Chloride 110. Bicarb 13. BUN 81. Creatinine 2.68. Glucose 134. Pro-calcitonin 11.0. She remains on bronchodilators. Continued on antibiotics in the form of Levaquin and cefepime. Her culture positive for group D enterococcus and gram-negative bacilli. Blood culture reveals no growth. The patient is seen today 08/11/2022 in follow-up in the intensive care unit. She did have progressive shortness of breath and hypoxemia and was subsequently intubated and placed on mechanical ventilator yesterday. He is currently on assist control mode with a rate of 20, tidal volume 400, FiO2 50% PEEP of 5. Morning blood gases revealed a PaO2 of 99, pCO2 45, pH 7.30 that was on 60% FiO2. She developed atrial fibrillation requiring amiodarone as well. She is hypotensive and requiring norepinephrine at 55 mcg/m, vasopressin at 0.04 units per minute. She remains on D5W with 3 A of bicarbonate 100 ML's per hour. 0.9 normal saline at 20 ML's per hour. She remains on antibiotics in the form of Levaquin, cefepime and daptomycin. Urine culture is positive for Enterococcus faecalis and Pseudomonas aeruginosa. Blood cultures showing no growth. Chest x-ray reveals no significant change. Stable appearance of the cardiomediastinal structures. Pleural effusion unchanged. No change in bibasilar opacities. White count 12.2. Hemoglobin 8.6. Platelets 349. Sodium 139. Potassium 5.1. Bicarb 22. BUN 79. Creatinine 2.74. Glucose 221. Lactic acid 3.2. Calcium 5.8. Cortisol 45. She is continued on DuoNeb inhalations, Pulmicort and Perforomist inhalations. The patient is seen today 08/12/2022 in follow-up in the intensive care unit. She remains intubated on the mechanical ventilator in assist control mode at a rate of 28, tidal volume 400, FiO2 50% and PEEP of 5. Morning blood gases revealed a pO2 of 115, pCO2 40, pH 7.4. She is currently sedated on propofol at 25 mcg/kg/m. She is on normal saline at 100 mL an hour. She is still requiring pressors in the form of norepinephrine at 55 mcg/m and vasopressin at 0.04 units per minute. She remains on antibiotics in the form of Zerbaxa, Levaquin and daptomycin. Urine culture was positive for Enterococcus faecalis and Pseudomonas aeruginosa. Blood cultures have revealed no growth. Sputum culture pending. White count 6.8. Hemoglobin 8.4. Platelets 268. Sodium 140. Potassium 4.5. BUN 81. Creatinine 2.72. Glucose 162. Calcium 6.0. AST 166. ALT 21. Alk phos 385. Currently in a +3.1 L balance. She is continued on DuoNeb inhalations, Pulmicort and Perforomist inhalations. The patient is seen today 08/13/2022 in follow-up in the intensive care unit. He remains intubated and on mechanical ventilator currently and assist-control mode at a rate of 28, tidal volume 400, FiO2 40% and a PEEP of 5. Morning blood gases revealed a pO2 of 100, pCO2 is 88 and a pH of 7.35. She did have issues with atrial fibrillation and rapid ventricular response and was seen by cardiology earlier this morning who initiated amiodarone bolus and started a drip at 1 mg/m. She has normal saline at 100 MLS per hour. Propofol at 20 mcg/kg/m. Norepinephrine at 36 mcg/m and vasopressin at 0.04 units per minute. Tube feeds are currently on hold per surgery for possible ileus. Chest x-ray shows similar bibasilar airspace opacities. Urine culture positive for Enterococcus faecalis and pseudomonas aeruginosa. Blood culture preliminary positive for anaerobic gram-negative bacilli. Sputum culture hasn't for Ange. White count 9.6. Hemoglobin 8.2. Platelets 244. Sodium 141. Potassium 3.5. Bicarb 20. BUN 75. Creatinine 2.52. Glucose 159. Calcium 5.6. AST 162. ALT 19. Albumin 1.8. Currently in a +312 mL balance. She is currently on bronchodilators. Remains on Eraxis, Zerbaxa, daptomycin. Currently on Lovenox with pharmacy to dose. Objective - Vital Signs Vital signs: Vital Signs Temp 98.3 F 08/13/22 08:00 Pulse 124 H 08/13/22 11:00 Resp 29 H 08/13/22 11:00 BP 125/60 08/13/22 03:45 Pulse Ox 98 08/13/22 11:00 FiO2 40 08/13/22 11:59 Intake & Output 08/12/22 08/13/22 08/13/22 18:59 06:59 18:59 Intake Total 2655.912 492.675 2529.917 Output Total 1370 1800 1005 Balance 1285.912 -973.974 104.917 Weight 121.45 kg Intake: IV 3421 677 7975 .9 20 240 240 100 .9 3cc/hr 36 36 18 Anidulafungin 200 mg In 200 Sodium Chloride 0.9% 200 ml @ 84 mls/hr IVPB ONCE ONE Rx#:[id number] Ceftazidime/Avibactam 0. 200 100 94 gm In Sodium Chloride 0.9% 100 ml @ 50 mls/hr IVPB Q24H [facility] Rx#: [id number] Invasive Line 7 30 30 Levofloxacin 500Mg-D5w 100 Pmx 500 mg In Dextrose/ Water 100 100ml.bag @ 100 mls/hr IVPB Q48H [facility] Rx# :[id number] Potassium Chloride 20 meq 100 In Water For Injection 1 100ml.bag @ 50 mls/hr IVPB Q2H [facility] Rx#: [id number] Sodium Chloride 0.9% 1, 500 000 ml @ 100 mls/hr IV . Q10H [facility] Rx#:[id number] Sodium Chloride 0.9% 1, 1000 000 ml @ 999 mls/hr IV . Q1H1M [facility] Rx#:[id number] Intake, IV Titration 1049.912 520.026 91.917 Amount Norepinephrine 32 mg In 429.681 273.797 91.917 Sodium Chloride 0.9% 218 ml @ 0.5 MCG/KG/MIN 25. 547 mls/hr IV .Q9H48M [facility] Rx#:[id number] Sodium Chloride 0.9% 1, 400 000 ml @ 100 mls/hr IV . Q10H [facility] Rx#:[id number] Vasopressin 60 unit In 109.65 111.894 Sodium Chloride 0.9% 150 ml @ 0.04 UNITS/MIN 6.12 mls/hr IV .Q24H [facility] Rx#: [id number] propofoL 1,000 mg In 72.158 Empty Bag 1 bag @ 15 MCG/ KG/MIN 9.81 mls/hr IV . [id number] [facility] Rx#:[id number] propofoL 1,000 mg In 38.423 134.335 Empty Bag 1 bag @ 15 MCG/ KG/MIN 9.81 mls/hr IV . [id number] [facility] Rx#:[id number] Output: Gastric Drainage 200 50 150 Urine 1170 1750 855 Other: Voiding Method Indwelling Catheter Indwelling Catheter Indwelling Catheter ABP, PAP, CO, CI - Last Documented Arterial Blood Pressure 122/52 - Exam GENERAL EXAM: Intubated, sedated, 87-year-old morbidly obese female, on 40% FiO2 and a PEEP of 5. HEAD: Normocephalic. EYES: Sluggish reaction of pupils, equal size. NOSE: Nasogastric tube secured in place. Clear with pink turbinates. THROAT: Oral endotracheal tube in place. NECK: No masses, no JVD. CHEST: No chest wall deformity. LUNGS: Equal air entry with crackles in the bilateral bases. CVS: S1 and S2 normal with no audible murmur, irregular rhythm. ABDOMEN: No hepatosplenomegaly, normal bowel sounds, no guarding or rigidity. SPINE: No scoliosis or deformity SKIN: No rashes CENTRAL NERVOUS SYSTEM: Sedated, tone is normal in all 4 extremities. EXTREMITIES: There is 1-2+ peripheral edema. Changes of chronic venous stasis. No clubbing, no cyanosis. Peripheral pulses are intact. - Labs CBC & Chem 7: 08/13/22 04:32 08/13/22 04:32 Labs: Abnormal Lab Results - Last 24 Hours (Table) 08/12/22 08/12/22 08/13/22 Range/Units 15:00 15:00 04:32 RBC 2.91 L 3.07 L (3.80-5.40) m/uL Hgb 8.0 L 8.2 L (11.4-16.0) gm/dL Hct 24.9 L 26.2 L (34.0-46.0) % RDW 16.2 H 16.5 H (11.5-15.5) % Lymphocytes # 0.9 L (1.0-4.8) k/uL INR 1.2 H (<1.2) ABG O2 Saturation (94-97) % Chloride (98-107) mmol/L Carbon Dioxide (22-30) mmol/L BUN (7-17) mg/dL Creatinine (0.52-1.04) mg/dL Glucose (74-99) mg/dL POC Glucose (mg/dL) (70-110) mg/dL Calcium (8.4-10.2) mg/dL AST (14-36) U/L Alkaline Phosphatase (38-126) U/L Total Protein (6.3-8.2) g/dL Albumin (3.5-5.0) g/dL 08/13/22 08/13/22 08/13/22 Range/Units 04:32 05:45 06:01 RBC (3.80-5.40) m/uL Hgb (11.4-16.0) gm/dL Hct (34.0-46.0) % RDW (11.5-15.5) % Lymphocytes # (1.0-4.8) k/uL INR (<1.2) ABG O2 Saturation 97.7 H (94-97) % Chloride 113 H (98-107) mmol/L Carbon Dioxide 20 L (22-30) mmol/L BUN 75 H (7-17) mg/dL Creatinine 2.52 H (0.52-1.04) mg/dL Glucose 159 H (74-99) mg/dL POC Glucose (mg/dL) 136 H (70-110) mg/dL Calcium 5.6 L* (8.4-10.2) mg/dL AST 162 H (14-36) U/L Alkaline Phosphatase 363 H (38-126) U/L Total Protein 3.9 L (6.3-8.2) g/dL Albumin 1.8 L (3.5-5.0) g/dL Microbiology - Last 24 Hours (Table) 08/11/22 16:05 Blood Culture Gram Stain - Preliminary Blood 08/08/22 13:30 Blood Culture Gram Stain - Preliminary Blood Blood Culture - Preliminary Anaerobic Gm Negative Bacilli 08/11/22 17:06 Gram Stain - Final Sputum Sputum Culture - Final Ange albicans 08/11/22 16:05 Blood Culture - Final Blood 08/10/22 17:00 Blood Culture - Preliminary Blood No Growth after 48 hours 08/09/22 14:19 Blood Culture - Preliminary Blood No Growth after 72 hours 08/08/22 13:00 Blood Culture - Preliminary Blood No Growth after 96 hours Assessment and Plan Assessment: Syncope suspect secondary to hypotension related to urinary tract infection, sepsis. Urine culture positive for Enterococcus faecalis and Pseudomonas aeruginosa Septic shock secondary to above, now requiring pressor support in the form of norepinephrine and vasopressin Acute on chronic hypoxemic respiratory failure secondary to suspected diastolic congestive heart failure. The patient did deteriorate on 08/10/2022 requiring intubation mechanical ventilatory support. Atrial fibrillation with a rapid ventricular response initiated on amiodarone drip currently at 1 mg/m following a bolus Suspected ileus, tube feeds on hold, considered too high risk for surgical intervention per surgical services Previous history of urinary tract infections History of atrial fibrillation on Eliquis in the outpatient Acute on chronic kidney disease Recent COVID-19 infection History of valvular heart disease with aortic valve stenosis and preserved LV function Chronic changes in the right lower lobe with small right pleural effusion Acute on chronic anemia my current hemoglobin 8.2 History of chronic obstructive pulmonary disease History of prior tobacco dependence History of diastolic congestive heart failure History of coronary disease with multiple stent placements History of CVA/TIA History of diabetes mellitus Morbid obesity Hypertension Hyperlipidemia Hypothyroidism Poor overall functional performance based on the above-mentioned multiple comorbidities with recent stay and ECF Plan: The patient was seen and evaluated Chest x-ray, ABGs, labs and medications reviewed Initiated amiodarone drip for atrial fibrillation with RVR On therapeutic Lovenox per pharmacy dosing Continue Eraxis, Zerbaxa, daptomycin Continue bronchodilators Remains on high doses of pressors Tube feeds remain on hold for suspected ileus Overall prognosis remains poor Chest x-ray, ABGs and labs in a.m. We will continue to follow and make further recommendations based on her clinical status I have personally seen and examined the patient, performed the documentation and the assessment and plan as written. Number of minutes spent on the visit: 15.
--- NOTE | 2022-08-13 12:21 | P.PN ---
Progress Note - Text Patient in the ICU Intubated A. fib with RVR, on pressors including norepinephrine as well as vasopressin Chest x-ray shows bibasilar airspace opacities Urine culture positive for Enterococcus faecalis and Pseudomonas Blood culture positive for anaerobic gram-negative bacillary Hemoglobin 8.2, white count 9.6 Sodium 141, potassium 3.5 BUN 75 and creatinine 2.5 AST 162 Impression Patient with multiple medical problems at this time A. fib with RVR On pressors Plan Start amiodarone intravenously per protocol for rate control of atrial fibrillation Prognosis poor at this time On IV antibiotics Deemed to be high risk surgical candidate, GI bleeding On DVT prophylaxis
[2022-08-13] MEDS: AMIODARONE 450 MG in DEXTROSE 5% IN WATER 250 ML IV SCH ×2 (16:05)
--- NOTE | 2022-08-13 16:33 | P.PN ---
Subjective Progress Note Date: 08/13/22 She has intermittent fevers. Continues to be on vent. Chest xray reviewed with out free air. Guarded prognosis. Family including daughter and discussed images of CT scan with retained stools. Patient at this time too high risk/unstable for surgical intervention with high likelihood for mortality. Above discussed with family. All questions addressed. Objective - Vital Signs Vital signs: Vital Signs Temp 98.2 F 08/13/22 16:00 Pulse 129 H 08/13/22 16:00 Resp 31 H 08/13/22 16:00 BP 125/60 08/13/22 03:45 Pulse Ox 99 08/13/22 16:00 FiO2 40 08/13/22 16:00 Intake & Output 08/12/22 08/13/22 08/13/22 18:59 06:59 18:59 Intake Total 2655.912 367.508 2471.583 Output Total 1370 1800 1455 Balance 1285.912 -973.974 296.583 Weight 121.45 kg Intake: IV 9060 739 8797 .9 20 240 240 180 .9 3cc/hr 36 36 30 Anidulafungin 200 mg In 200 Sodium Chloride 0.9% 200 ml @ 84 mls/hr IVPB ONCE ONE Rx#:[id number] Ceftazidime/Avibactam 0. 200 100 94 gm In Sodium Chloride 0.9% 100 ml @ 50 mls/hr IVPB Q24H [facility] Rx#: [id number] Invasive Line 7 30 30 Levofloxacin 500Mg-D5w 100 Pmx 500 mg In Dextrose/ Water 100 100ml.bag @ 100 mls/hr IVPB Q48H [facility] Rx# :[id number] Potassium Chloride 20 meq 100 In Water For Injection 1 100ml.bag @ 50 mls/hr IVPB Q2H [facility] Rx#: [id number] Sodium Chloride 0.9% 1, 900 000 ml @ 100 mls/hr IV . Q10H [facility] Rx#:[id number] Sodium Chloride 0.9% 1, 1000 000 ml @ 999 mls/hr IV . Q1H1M [facility] Rx#:[id number] Intake, IV Titration 1049.912 520.026 241.583 Amount Norepinephrine 32 mg In 429.681 273.797 144.791 Sodium Chloride 0.9% 218 ml @ 0.5 MCG/KG/MIN 25. 547 mls/hr IV .Q9H48M [facility] Rx#:[id number] Sodium Chloride 0.9% 1, 400 000 ml @ 100 mls/hr IV . Q10H [facility] Rx#:[id number] Vasopressin 60 unit In 109.65 111.894 Sodium Chloride 0.9% 150 ml @ 0.04 UNITS/MIN 6.12 mls/hr IV .Q24H [facility] Rx#: [id number] propofoL 1,000 mg In 72.158 Empty Bag 1 bag @ 15 MCG/ KG/MIN 9.81 mls/hr IV . [id number] [facility] Rx#:[id number] propofoL 1,000 mg In 38.423 134.335 96.792 Empty Bag 1 bag @ 15 MCG/ KG/MIN 9.81 mls/hr IV . [id number] [facility] Rx#:[id number] Output: Gastric Drainage 200 50 150 Urine 1170 1750 1305 Other: Voiding Method Indwelling Catheter Indwelling Catheter Indwelling Catheter ABP, PAP, CO, CI - Last Documented Arterial Blood Pressure 120/55 - Labs CBC & Chem 7: 08/13/22 04:32 08/13/22 04:32 Labs: Abnormal Lab Results - Last 24 Hours (Table) 08/12/22 08/13/22 08/13/22 Range/Units 15:00 04:32 04:32 RBC 3.07 L (3.80-5.40) m/uL Hgb 8.2 L (11.4-16.0) gm/dL Hct 26.2 L (34.0-46.0) % RDW 16.5 H (11.5-15.5) % INR 1.2 H (<1.2) ABG O2 Saturation (94-97) % Chloride 113 H (98-107) mmol/L Carbon Dioxide 20 L (22-30) mmol/L BUN 75 H (7-17) mg/dL Creatinine 2.52 H (0.52-1.04) mg/dL Glucose 159 H (74-99) mg/dL POC Glucose (mg/dL) (70-110) mg/dL Calcium 5.6 L* (8.4-10.2) mg/dL AST 162 H (14-36) U/L Alkaline Phosphatase 363 H (38-126) U/L Total Protein 3.9 L (6.3-8.2) g/dL Albumin 1.8 L (3.5-5.0) g/dL 08/13/22 08/13/22 Range/Units 05:45 06:01 RBC (3.80-5.40) m/uL Hgb (11.4-16.0) gm/dL Hct (34.0-46.0) % RDW (11.5-15.5) % INR (<1.2) ABG O2 Saturation 97.7 H (94-97) % Chloride (98-107) mmol/L Carbon Dioxide (22-30) mmol/L BUN (7-17) mg/dL Creatinine (0.52-1.04) mg/dL Glucose (74-99) mg/dL POC Glucose (mg/dL) 136 H (70-110) mg/dL Calcium (8.4-10.2) mg/dL AST (14-36) U/L Alkaline Phosphatase (38-126) U/L Total Protein (6.3-8.2) g/dL Albumin (3.5-5.0) g/dL Microbiology - Last 24 Hours (Table) 08/08/22 13:00 Blood Culture - Preliminary Blood No Growth after 120 hours 08/11/22 16:05 Blood Culture Gram Stain - Preliminary Blood Blood Culture - Preliminary Ange albicans 08/08/22 13:30 Blood Culture Gram Stain - Preliminary Blood Blood Culture - Preliminary Anaerobic Gm Negative Bacilli 08/11/22 17:06 Gram Stain - Final Sputum Sputum Culture - Final Ange albicans 08/11/22 16:05 Blood Culture - Final Blood 08/10/22 17:00 Blood Culture - Preliminary Blood No Growth after 48 hours 08/09/22 14:19 Blood Culture - Preliminary Blood No Growth after 72 hours
[2022-08-13 17:34] LABS: Glucose,Whole Blood 101 mg/dL (70-110)
[2022-08-13] MEDS: ENOXAPARIN 40 MG/0.4 ML SYRINGE SQ SCH (20:10)
--- NOTE | 2022-08-13 21:45 | P.PN ---
Subjective Progress Note Date: 08/13/22 Principal diagnosis: Sepsis/septic shock Patient is a 87-year-old female with multiple comorbidities presented to the hospital with a syncopal episode weakness subsequently hypotension, sepsis requiring transfer to the ICU and intubation on the vent. On today's evaluation that is 08/13/2022, the patient fever pattern has improved and did have a low-grade fever 100.3 last night afebrile this morning, the patient is requiring less pressor support to maintain her blood pressure per the nursing staff, FiO2 is currently stable at 40 %, no significant purulent secretions through the ET, and no diarrhea has been reported by the nursing staff, blood culture were reported positive with yeast this morning Objective - Vital Signs Vital signs: Vital Signs Temp 98.8 F 08/13/22 12:00 Pulse 116 H 08/13/22 14:00 Resp 31 H 08/13/22 14:00 BP 125/60 08/13/22 03:45 Pulse Ox 100 08/13/22 14:00 FiO2 40 08/13/22 12:08 Intake & Output 08/12/22 08/13/22 08/13/22 18:59 06:59 18:59 Intake Total 2655.912 290.020 5044.739 Output Total 1370 1800 1230 Balance 1285.912 -973.974 155.739 Weight 121.45 kg Intake: IV 6357 341 1110 .9 20 240 240 140 .9 3cc/hr 36 36 24 Anidulafungin 200 mg In 200 Sodium Chloride 0.9% 200 ml @ 84 mls/hr IVPB ONCE ONE Rx#:[id number] Ceftazidime/Avibactam 0. 200 100 94 gm In Sodium Chloride 0.9% 100 ml @ 50 mls/hr IVPB Q24H [facility] Rx#: [id number] Invasive Line 7 30 30 Levofloxacin 500Mg-D5w 100 Pmx 500 mg In Dextrose/ Water 100 100ml.bag @ 100 mls/hr IVPB Q48H [facility] Rx# :[id number] Potassium Chloride 20 meq 100 In Water For Injection 1 100ml.bag @ 50 mls/hr IVPB Q2H [facility] Rx#: [id number] Sodium Chloride 0.9% 1, 700 000 ml @ 100 mls/hr IV . Q10H [facility] Rx#:[id number] Sodium Chloride 0.9% 1, 1000 000 ml @ 999 mls/hr IV . Q1H1M [facility] Rx#:[id number] Intake, IV Titration 1049.912 520.026 121.739 Amount Norepinephrine 32 mg In 429.681 273.797 121.739 Sodium Chloride 0.9% 218 ml @ 0.5 MCG/KG/MIN 25. 547 mls/hr IV .Q9H48M [facility] Rx#:[id number] Sodium Chloride 0.9% 1, 400 000 ml @ 100 mls/hr IV . Q10H [facility] Rx#:[id number] Vasopressin 60 unit In 109.65 111.894 Sodium Chloride 0.9% 150 ml @ 0.04 UNITS/MIN 6.12 mls/hr IV .Q24H [facility] Rx#: [id number] propofoL 1,000 mg In 72.158 Empty Bag 1 bag @ 15 MCG/ KG/MIN 9.81 mls/hr IV . [id number] [facility] Rx#:[id number] propofoL 1,000 mg In 38.423 134.335 Empty Bag 1 bag @ 15 MCG/ KG/MIN 9.81 mls/hr IV . [id number] [facility] Rx#:[id number] Output: Gastric Drainage 200 50 150 Urine 1170 1750 1080 Other: Voiding Method Indwelling Catheter Indwelling Catheter Indwelling Catheter ABP, PAP, CO, CI - Last Documented Arterial Blood Pressure 125/55 - Exam GENERAL DESCRIPTION: An elderly female intubated on the vent RESPIRATORY SYSTEM: Unlabored breathing , decreased breath sounds at bases HEART: S1 S2 regular rate and rhythm , ABDOMEN: Soft , no tenderness EXTREMITIES: Lower extremity swelling no redness - Labs CBC & Chem 7: 08/13/22 04:32 08/13/22 04:32 Labs: Abnormal Lab Results - Last 24 Hours (Table) 08/12/22 08/12/22 08/13/22 Range/Units 15:00 15:00 04:32 RBC 2.91 L 3.07 L (3.80-5.40) m/uL Hgb 8.0 L 8.2 L (11.4-16.0) gm/dL Hct 24.9 L 26.2 L (34.0-46.0) % RDW 16.2 H 16.5 H (11.5-15.5) % Lymphocytes # 0.9 L (1.0-4.8) k/uL INR 1.2 H (<1.2) ABG O2 Saturation (94-97) % Chloride (98-107) mmol/L Carbon Dioxide (22-30) mmol/L BUN (7-17) mg/dL Creatinine (0.52-1.04) mg/dL Glucose (74-99) mg/dL POC Glucose (mg/dL) (70-110) mg/dL Calcium (8.4-10.2) mg/dL AST (14-36) U/L Alkaline Phosphatase (38-126) U/L Total Protein (6.3-8.2) g/dL Albumin (3.5-5.0) g/dL 08/13/22 08/13/22 08/13/22 Range/Units 04:32 05:45 06:01 RBC (3.80-5.40) m/uL Hgb (11.4-16.0) gm/dL Hct (34.0-46.0) % RDW (11.5-15.5) % Lymphocytes # (1.0-4.8) k/uL INR (<1.2) ABG O2 Saturation 97.7 H (94-97) % Chloride 113 H (98-107) mmol/L Carbon Dioxide 20 L (22-30) mmol/L BUN 75 H (7-17) mg/dL Creatinine 2.52 H (0.52-1.04) mg/dL Glucose 159 H (74-99) mg/dL POC Glucose (mg/dL) 136 H (70-110) mg/dL Calcium 5.6 L* (8.4-10.2) mg/dL AST 162 H (14-36) U/L Alkaline Phosphatase 363 H (38-126) U/L Total Protein 3.9 L (6.3-8.2) g/dL Albumin 1.8 L (3.5-5.0) g/dL Microbiology - Last 24 Hours (Table) 08/11/22 16:05 Blood Culture Gram Stain - Preliminary Blood Blood Culture - Preliminary Ange albicans 08/08/22 13:30 Blood Culture Gram Stain - Preliminary Blood Blood Culture - Preliminary Anaerobic Gm Negative Bacilli 08/11/22 17:06 Gram Stain - Final Sputum Sputum Culture - Final Ange albicans 08/11/22 16:05 Blood Culture - Final Blood 08/10/22 17:00 Blood Culture - Preliminary Blood No Growth after 48 hours 08/09/22 14:19 Blood Culture - Preliminary Blood No Growth after 72 hours 08/08/22 13:00 Blood Culture - Preliminary Blood No Growth after 96 hours Assessment and Plan (1) Sepsis Current Visit: Yes Status: Acute Code(s): A41.9 - SEPSIS, UNSPECIFIED ORGANISM SNOMED Code(s): 78194096 (2) UTI (urinary tract infection) Current Visit: No Status: Acute Code(s): N39.0 - URINARY TRACT INFECTION, SITE NOT SPECIFIED SNOMED Code(s): 26236177 Plan: 1patient with sepsis/septic shock in this patient is in the hospital with syncopal episode of weakness patient is now intubated on the vent and requiring high dose pressor support to maintain her blood pressure, the patient is growing gram-negative bacilli in the blood could be related to the urine as she is growing gram-negative as well as enterococcus in the urine versus related to the right lower lobe pneumonia and now there is suspicious for possible abdominal source 2patient with penicillin ALLERGY that would limit the number of antibiotic safe to use,patient with the borderline kidney function has risk of nephrotoxicity 3 urine culture did grew drug resistant Pseudomonas , blood culture is growing gram-negative however ID and sensitivities pending, and now repeat blood culture is growing yeast questionably urinary versus GI source, 4-patient to continue with Zerbexa, and Eraxis was added this morning to cover for the yeast, blood cultures will be repeated document clearance Family the bedside questions concerned were answered
[2022-08-13 22:56] LABS: Glucose,Whole Blood 78 mg/dL (70-110)
[2022-08-14] MEDS: NOREPINEPHRINE 32 MG in SODIUM CHLORIDE 0.9% 218 ML IV SCH ×3 (02:52→22:05)
[2022-08-14] MEDS: IPRATROPIUM-ALBUTEROL 3 ML NEB INHALATION SCH ×6 (04:23→21:32)
[2022-08-14 04:35] LABS: Anisocytosis Slight; Basophils % (A) 0 %; Eosinophils % (A) 0 %; HCT 25.6 % (34.0-46.0); HGB 7.8 gm/dL (11.4-16.0); Hypochromasia Moderate; Lymphocytes # (A) 0.9 k/uL (1.0-4.8); Lymphocytes % (A) 8 %; MCHC 30.4 g/dL (31.0-37.0); MCV 85.6 fL (80.0-100.0); Mean Platelet Volume 8.5; Monocytes # (A) 0.5 k/uL (0-1.0); Monocytes % (A) 4 %; Neutrophils # (A) 9.4 k/uL (1.3-7.7); Neutrophils % (A) 84 %; Platelet Count 229 k/uL (150-450); RBC 2.99 m/uL (3.80-5.40); RDW 16.4 % (11.5-15.5); WBC 11.2 k/uL (3.8-10.6)
[2022-08-14 05:01] LABS: Calcium 5.8 mg/dL (8.4-10.2)
[2022-08-14 05:50] LABS: ABG Base Excess -3.4 mmol/L; ABG HCO3 22 mmol/L (21-25); ABG PCO2 38 mmHg (35-45); ABG PH 7.37 (7.35-7.45); ABG PO2 113 mmHg (83-108); ABG TCO2 23 mmol/L (19-24); Allen Test Performed? Yes
[2022-08-14 06:08] LABS: Glucose,Whole Blood 58 mg/dL (70-110)
[2022-08-14] MEDS: DEXTROSE 50% SYRINGE 50 ML IVP PRN (06:18)
[2022-08-14] MEDS: INSULIN ASPART (NovoLOG) 100 UNIT/ML VIAL SQ SCH ×3 (06:25→17:34)
[2022-08-14 06:31] LABS: Glucose,Whole Blood 61 mg/dL (70-110)
[2022-08-14 06:35] LABS: Glucose,Whole Blood 147 mg/dL (70-110)
[2022-08-14] MEDS ORDERED: CALCIUM GLUCONATE IN NACL 2 GM in SALINE 1 100ML.BAG IVPB ONE ×2 (06:42→09:00)
[2022-08-14] MEDS ORDERED: Potassium Replacement Protocol 1 EACH MISC MISCELLANE PRN (06:45)
[2022-08-14] MEDS ORDERED: POTASSIUM CHLORIDE 20 MEQ in WATER FOR INJECTION 1 100ML.BAG IVPB STA ×2 (06:46→18:37)
[2022-08-14] MEDS: AMIODARONE 450 MG in DEXTROSE 5% IN WATER 250 ML IV SCH ×2 (06:57)
[2022-08-14] MEDS: POTASSIUM CHLORIDE 20 MEQ in WATER FOR INJECTION 1 100ML.BAG IVPB SCH ×4 (06:57→13:54)
[2022-08-14] MEDS: INSULIN DETEMIR (LEVEMIR) 100 UNIT/ML SYR SQ SCH (07:01)
[2022-08-14] MEDS: BUDESONIDE 1 MG/2 ML NEBU INHALATION SCH ×3 (07:41→21:31)
[2022-08-14] MEDS: FORMOTEROL FUMARATE 20 MCG/2 ML NEBU INHALATION SCH ×3 (07:41→21:31)
--- NOTE | 2022-08-14 08:10 | XR ---
EXAMINATION TYPE: XR chest 1V portable DATE OF EXAM: 08/14/2022 COMPARISON: 08/13/2022 HISTORY: Tube placement TECHNIQUE: Single frontal view of the chest is obtained. FINDINGS: Bilateral infiltrate and small pleural effusion stable. ET and NG tube stable. Sizable pne umothorax. Postoperative change left shoulder. Central line change. Hypertrophic and degenerative angel nges spine. IMPRESSION: 1. Persistent bilateral infiltrate and pleural effusion correlate for CHF versus diffuse pneumonia.
[2022-08-14] MEDS: PANTOPRAZOLE 40 MG/10 ML VIAL IVP SCH (09:10)
[2022-08-14] MEDS: CHLORHEXIDINE GLUCONATE 15 ML CUP MUCOUS MEM SCH ×2 (09:10→20:37)
[2022-08-14] MEDS: ANIDULAFUNGIN 100 MG in SODIUM CHLORIDE 0.9% 100 ML IVPB SCH (09:11)
[2022-08-14] MEDS: SODIUM CHLORIDE 0.9% 1,000 ML IV SCH (09:11)
--- NOTE | 2022-08-14 09:20 | P.PN ---
Subjective Progress Note Date: 08/14/22 The patient is an 87-year-old female with multiple comorbid conditions who is currently admitted to the hospital with bowel obstruction and septicemia. Cardiology was consulted for a syncopal episode just prior to admission. Cardiology has signed off but then was again for A. fib with RVR. Dr Dorado re commended amiodarone drip for rate control. The patient has a poor prognosis as she is currently ventilated on vasopressors and is deemed a high risk surgical candidate. GENERAL: Ill-appearing, well-nourished and in no acute distress. Sedated on ventilator. NECK: Supple without JVD or thyromegaly. LUNGS: Breath sounds are coarse to auscultation bilaterally. Respiration equal and unlabored. Rhonchi throughout HEART: Irregular rate and rhythm without murmurs, rubs or gallops. S1 and S2 heard. EXTREMITIES: Normal range of motion, mild edema. No clubbing or cyanosis. TELEMETRY: Atrial fibrillation LABS: WBC 11.2, hemoglobin 7.8, hematocrit 25.6, platelet 229, sodium 144, potassium 3, BUN 67, creatinine 2.21, AST 162, ALT 19, ALP 363 IMPRESSION: A. fib with RVR, currently on amiodarone for rate control Septicemia Multisystem organ failure Acute respiratory failure on vasopressors GI bleeding with acute bowel obstruction PLAN: Poor prognosis at this time High risk surgical candidate No further recommendations from the cardiac standpoint I am dictating on behalf of Dr Joaquin Dorado's history/physical and assessment/plan. Objective - Vital Signs Vital signs: Vital Signs Temp 97.9 F 08/14/22 04:00 Pulse 122 H 08/14/22 08:05 Resp 24 08/14/22 07:00 BP 125/60 08/14/22 01:30 Pulse Ox 99 08/14/22 07:00 FiO2 40 08/14/22 08:00 Intake & Output 08/13/22 08/14/22 08/14/22 18:59 06:59 18:59 Intake Total 6116.205 0987.293 191.234 Output Total 1805 1500 375 Balance 172.583 558.293 -183.766 Weight 123.1 kg Intake: IV 1736 1476 123 .9 20 200 240 20 .9 3cc/hr 36 36 3 Anidulafungin 200 mg In 200 Sodium Chloride 0.9% 200 ml @ 84 mls/hr IVPB ONCE ONE Rx#:[id number] Ceftazidime/Avibactam 0. 200 94 gm In Sodium Chloride 0.9% 100 ml @ 50 mls/hr IVPB Q24H [facility] Rx#: [id number] Potassium Chloride 20 meq 100 In Water For Injection 1 100ml.bag @ 50 mls/hr IVPB Q2H [facility] Rx#: [id number] Sodium Chloride 0.9% 1, 1000 1200 100 000 ml @ 100 mls/hr IV . Q10H [facility] Rx#:[id number] Intake, IV Titration 241.583 582.293 68.234 Amount Amiodarone 450 mg In 247.783 Dextrose 5% in Water 250 ml @ 0.5 MG/MIN 16.667 mls/hr IV .Q15H [facility] Rx#: [id number] Norepinephrine 32 mg In 144.791 170.574 Sodium Chloride 0.9% 218 ml @ 0.5 MCG/KG/MIN 25. 547 mls/hr IV .Q9H48M [facility] Rx#:[id number] propofoL 1,000 mg In 96.792 163.936 68.234 Empty Bag 1 bag @ 15 MCG/ KG/MIN 9.81 mls/hr IV . [id number] [facility] Rx#:[id number] Output: Gastric Drainage 300 250 Urine 1505 1500 125 Other: Voiding Method Indwelling Catheter Indwelling Catheter ABP, PAP, CO, CI - Last Documented Arterial Blood Pressure 111/46 - Labs CBC & Chem 7: 08/14/22 04:17 08/14/22 04:17 Labs: Abnormal Lab Results - Last 24 Hours (Table) 08/14/22 08/14/22 08/14/22 Range/Units 04:17 04:17 05:47 WBC 11.2 H (3.8-10.6) k/uL RBC 2.99 L (3.80-5.40) m/uL Hgb 7.8 L (11.4-16.0) gm/dL Hct 25.6 L (34.0-46.0) % MCHC 30.4 L (31.0-37.0) g/dL RDW 16.4 H (11.5-15.5) % Neutrophils # 9.4 H (1.3-7.7) k/uL Lymphocytes # 0.9 L (1.0-4.8) k/uL ABG pO2 113 H (83-108) mmHg ABG O2 Saturation 98.0 H (94-97) % Potassium 3.0 L (3.5-5.1) mmol/L Chloride 116 H (98-107) mmol/L Carbon Dioxide 21 L (22-30) mmol/L BUN 67 H (7-17) mg/dL Creatinine 2.21 H (0.52-1.04) mg/dL Glucose 123 H (74-99) mg/dL POC Glucose (mg/dL) (70-110) mg/dL Calcium 5.8 L* (8.4-10.2) mg/dL 08/14/22 08/14/22 08/14/22 Range/Units 06:07 06:30 06:33 WBC (3.8-10.6) k/uL RBC (3.80-5.40) m/uL Hgb (11.4-16.0) gm/dL Hct (34.0-46.0) % MCHC (31.0-37.0) g/dL RDW (11.5-15.5) % Neutrophils # (1.3-7.7) k/uL Lymphocytes # (1.0-4.8) k/uL ABG pO2 (83-108) mmHg ABG O2 Saturation (94-97) % Potassium (3.5-5.1) mmol/L Chloride (98-107) mmol/L Carbon Dioxide (22-30) mmol/L BUN (7-17) mg/dL Creatinine (0.52-1.04) mg/dL Glucose (74-99) mg/dL POC Glucose (mg/dL) 58 L 61 L 147 H (70-110) mg/dL Calcium (8.4-10.2) mg/dL Microbiology - Last 24 Hours (Table) 08/10/22 17:00 Blood Culture - Preliminary Blood No Growth after 72 hours 08/09/22 14:19 Blood Culture - Preliminary Blood No Growth after 96 hours 08/08/22 13:00 Blood Culture - Preliminary Blood No Growth after 120 hours 08/11/22 16:05 Blood Culture Gram Stain - Preliminary Blood Blood Culture - Preliminary Ange albicans 08/08/22 13:30 Blood Culture Gram Stain - Preliminary Blood Blood Culture - Preliminary Anaerobic Gm Negative Bacilli 08/11/22 17:06 Gram Stain - Final Sputum Sputum Culture - Final Ange albicans
[2022-08-14] MEDS: TAMSULOSIN 0.4 MG CAP.ER.24H PO SCH (09:47)
[2022-08-14] MEDS: polyethylene glycoL 3350 17 GM POWD.PACK PO SCH ×2 (09:47→20:37)
[2022-08-14] MEDS: CEFTOLOZANE/TAZOBACTAM 0.75 GM in SODIUM CHLORIDE 0.9% 100 ML IV SCH ×2 (09:48→17:28)
--- NOTE | 2022-08-14 10:36 | P.PN ---
Subjective Patient is seen for follow-up for acute kidney injury, mostly ATN currently slowly improving. Etiology is sepsis with fungemia and UTI with urine cultures growing Pseudomonas and enterococcus. Patient also has left lower lobe pneumonia. Patient remains on the vent. FiO2 is at 40%. Maintained on saline at 100 mL an hour. Patient is also maintained on levo fed as well as vasopressin and the dose of both the pressors has been decreasing. Urine output at 100-1 50 mL an hour. Serum creatinine at 2.2 from peak at 2.7. Potassium was 3.0 and currently being replaced. Objective - Vital Signs Vital signs: Vital Signs Temp 97.6 F 08/14/22 08:00 Pulse 124 H 08/14/22 09:00 Resp 24 08/14/22 09:00 BP 125/60 08/14/22 01:30 Pulse Ox 99 08/14/22 09:00 FiO2 40 08/14/22 08:00 Intake & Output 08/13/22 08/14/22 08/14/22 18:59 06:59 18:59 Intake Total 1999.737 3065.293 1041.859 Output Total 1805 1500 905 Balance 172.583 558.293 136.859 Weight 123.1 kg Intake: IV 1736 1476 546 .9 20 200 240 40 .9 3cc/hr 36 36 6 Anidulafungin 200 mg In 200 100 Sodium Chloride 0.9% 200 ml @ 84 mls/hr IVPB ONCE [facility] Rx#:[id number] Ceftazidime/Avibactam 0. 200 94 gm In Sodium Chloride 0.9% 100 ml @ 50 mls/hr IVPB Q24H [facility] Rx#: [id number] Potassium Chloride 20 meq 100 100 In Water For Injection 1 100ml.bag @ 50 mls/hr IVPB Q2H [facility] Rx#: [id number] Sodium Chloride 0.9% 1, 1000 1200 300 000 ml @ 100 mls/hr IV . Q10H [facility] Rx#:[id number] Intake, IV Titration 241.583 582.293 495.859 Amount Amiodarone 360 mg In 200 Dextrose 5% in Water 200 ml @ 1 MG/MIN 33.333 mls/ hr IV .Q6H [facility] Rx#: [id number] Amiodarone 450 mg In 247.783 Dextrose 5% in Water 250 ml @ 0.5 MG/MIN 16.667 mls/hr IV .Q15H [facility] Rx#: [id number] Calcium Gluconate in NaCl 100 2 gm In Saline 1 100ml. bag @ 50 mls/hr IVPB ONCE [facility] Rx#:[id number] Ceftolozane/Tazobactam 0. 100 75 gm In Sodium Chloride 0.9% 100 ml @ 100 mls/hr IV Q8HR [facility] Rx#:[id number] Norepinephrine 32 mg In 144.791 170.574 27.625 Sodium Chloride 0.9% 218 ml @ 0.5 MCG/KG/MIN 25. 547 mls/hr IV .Q9H48M [facility] Rx#:[id number] propofoL 1,000 mg In 96.792 163.936 68.234 Empty Bag 1 bag @ 15 MCG/ KG/MIN 9.81 mls/hr IV . [id number] [facility] Rx#:[id number] Output: Gastric Drainage 300 500 Urine 1505 1500 405 Other: Voiding Method Indwelling Catheter Indwelling Catheter Indwelling Catheter ABP, PAP, CO, CI - Last Documented Arterial Blood Pressure 126/52 - Exam Patient is sedated and on the vent. Examination of the heart S1 and S2 Examination of the lungs bilateral breath sounds are heard Abdomen is soft distended obese Examination lower extremity shows edema 2+ bilaterally upper and lower extremities [employer] exam cannot be performed - Labs CBC & Chem 7: 08/14/22 04:17 08/14/22 04:17 Labs: Abnormal Lab Results - Last 24 Hours (Table) 08/14/22 08/14/22 08/14/22 Range/Units 04:17 04:17 05:47 WBC 11.2 H (3.8-10.6) k/uL RBC 2.99 L (3.80-5.40) m/uL Hgb 7.8 L (11.4-16.0) gm/dL Hct 25.6 L (34.0-46.0) % MCHC 30.4 L (31.0-37.0) g/dL RDW 16.4 H (11.5-15.5) % Neutrophils # 9.4 H (1.3-7.7) k/uL Lymphocytes # 0.9 L (1.0-4.8) k/uL ABG pO2 113 H (83-108) mmHg ABG O2 Saturation 98.0 H (94-97) % Potassium 3.0 L (3.5-5.1) mmol/L Chloride 116 H (98-107) mmol/L Carbon Dioxide 21 L (22-30) mmol/L BUN 67 H (7-17) mg/dL Creatinine 2.21 H (0.52-1.04) mg/dL Glucose 123 H (74-99) mg/dL POC Glucose (mg/dL) (70-110) mg/dL Calcium 5.8 L* (8.4-10.2) mg/dL 08/14/22 08/14/22 08/14/22 Range/Units 06:07 06:30 06:33 WBC (3.8-10.6) k/uL RBC (3.80-5.40) m/uL Hgb (11.4-16.0) gm/dL Hct (34.0-46.0) % MCHC (31.0-37.0) g/dL RDW (11.5-15.5) % Neutrophils # (1.3-7.7) k/uL Lymphocytes # (1.0-4.8) k/uL ABG pO2 (83-108) mmHg ABG O2 Saturation (94-97) % Potassium (3.5-5.1) mmol/L Chloride (98-107) mmol/L Carbon Dioxide (22-30) mmol/L BUN (7-17) mg/dL Creatinine (0.52-1.04) mg/dL Glucose (74-99) mg/dL POC Glucose (mg/dL) 58 L 61 L 147 H (70-110) mg/dL Calcium (8.4-10.2) mg/dL Microbiology - Last 24 Hours (Table) 08/10/22 17:00 Blood Culture - Preliminary Blood No Growth after 72 hours 08/09/22 14:19 Blood Culture - Preliminary Blood No Growth after 96 hours 08/08/22 13:00 Blood Culture - Preliminary Blood No Growth after 120 hours 08/11/22 16:05 Blood Culture Gram Stain - Preliminary Blood Blood Culture - Preliminary Ange albicans 08/08/22 13:30 Blood Culture Gram Stain - Preliminary Blood Blood Culture - Preliminary Anaerobic Gm Negative Bacilli 08/11/22 17:06 Gram Stain - Final Sputum Sputum Culture - Final Ange albicans Assessment and Plan Assessment: 1. Acute kidney injury secondary to prerenal from fungemia and urine tract infection with Pseudomonas and enterococcus. Creatinine is improved this morning from 2.72 mg to 2.2. Admission creatinine was 1.5 and peak was 2.77 2. Hypotension secondary to sepsis, on levo fed and vasopressin blood pressure slightly better 3. Ventilator dependent respiratory failure, stable 40% FiO2 3. Left lower lobe pneumonia 4. UTI with Pseudomonas and enterococcus. 5. Hypocalcemia secondary to acute kidney injury. 6. Elevated liver function tests secondary to sepsis Plan: Continue to wean down pressors Decrease the saline Replace potassium Repeat labs in a.m.
[2022-08-14] MEDS ORDERED: bisacodyL 10 MG SUPP RECTAL STA (10:49)
--- NOTE | 2022-08-14 10:50 | P.PN ---
Subjective Progress Note Date: 08/14/22 cements, hypothyroidism, morbid obesity, multiple orthopedic surgeries, congestive heart failure, diabetes bella, hypertension, hyperlipidemia, osteoarthritis, obstructive sleep apnea on BiPAP, CVA/TIA, oxygen dependent and she was recently discharged from here to [facility] on the [place] and was just home for 3 days when she developed a syncopal episode yesterday. Her that may related to low blood sugar and try to give her oral issues which she vomited. She was brought into the emergency room yesterday. She is seen today in consultation. She remains in the emergency department. She is sitting up in bed. She is basically just moaning and groaning. Her family is at the bedside and provides him permission. She was initially placed on BiPAP. She is currently on 6 L high flow nasal cannula with O2 saturations in the 90s. Afebrile. Somewhat hypotensive. Blood culture reveals no growth to date. Urine culture pending. White count 19.1. Hemoglobin 8.0. Sodium 136. Potassium 4.6. Bicarb 17. BUN 66. Creatinine 2.27. Glucose 145. D-dimer 4.73. ProBNP 426. Troponin negative 1. CT angiogram ruled out pulmonary embolism. There is evidence of cardiomegaly with pulmonary vascular congestion. Scattered airspace opacities more consolidation in the right lung base. Rule out aspiration. Computed tomography scan of the abdomen and pelvis revealed extensive stool burden throughout the colon. 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 Today's chest x-ray shows Nasogastric tube in place. Mild cardiomegaly with bibasilar acute infiltrate and/or ate lectasis. She's been initiated on Symbicort, DuoNeb inhalations, antibiotics in the form of Levaquin. She is anticoagulated with Eliquis. The patient is seen today for per 2022 in follow-up in the intensive care unit. Just after midnight they called an a team on her due to her being obtun ded and hypotensive. She was on the sixth liter Ventimask and they do arterial blood gases that revealed a pO2 of 136, pCO2 31, pH 7.28. She was placed on BiPAP 12/5 and 50% and transferred into the intensive care unit. She received 3 A of sodium bicarb. She has D5W with 3 A of sodium bicarb at 75 ML's per hour. She is on norepinephrine at 27 mcg/m. Vasopressin at 0.03 units per minute. 0.9 normal saline at 20 mL per hour. She did undergo central line placement and arterial line placement. Follow-up blood gases reveal a pO2 of 295. PCO2 of 48. PH is 7.20 100% FiO2. White count 8.7. Hemoglobin 8.2. Platelets 311. Sodium 134. Potassium 6.3. Chloride 110. Bicarb 13. BUN 81. Creatinine 2.68. Glucose 134. Pro-calcitonin 11.0. She remains on bronchodilators. Continued on antibiotics in the form of Levaquin and cefepime. Her culture positive for group D enterococcus and gram-negative bacilli. Blood culture reveals no growth. The patient is seen today 08/11/2022 in follow-up in the intensive care unit. She did have progressive shortness of breath and hypoxemia and was subsequently intubated and placed on mechanical ventilator yesterday. He is currently on assist control mode with a rate of 20, tidal volume 400, FiO2 50% PEEP of 5. Morning blood gases revealed a PaO2 of 99, pCO2 45, pH 7.30 that was on 60% FiO2. She developed atrial fibrillation requiring amiodarone as well. She is hypotensive and requiring norepinephrine at 55 mcg/m, vasopressin at 0.04 units per minute. She remains on D5W with 3 A of bicarbonate 100 ML's per hour. 0.9 normal saline at 20 ML's per hour. She remains on antibiotics in the form of Levaquin, cefepime and daptomycin. Urine culture is positive for Enterococcus faecalis and Pseudomonas aeruginosa. Blood cultures showing no growth. Chest x-ray reveals no significant change. Stable appearance of the cardiomediastinal structures. Pleural effusion unchanged. No change in bibasilar opacities. White count 12.2. Hemoglobin 8.6. Platelets 349. Sodium 139. Potassium 5.1. Bicarb 22. BUN 79. Creatinine 2.74. Glucose 221. Lactic acid 3.2. Calcium 5.8. Cortisol 45. She is continued on DuoNeb inhalations, Pulmicort and Perforomist inhalations. The patient is seen today 08/12/2022 in follow-up in the intensive care unit. She remains intubated on the mechanical ventilator in assist control mode at a r ate of 28, tidal volume 400, FiO2 50% and PEEP of 5. Morning blood gases revealed a pO2 of 115, pCO2 40, pH 7.4. She is currently sedated on propofol at 25 mcg/kg/m. She is on normal saline at 100 mL an hour. She is still requiring pressors in the form of norepinephrine at 55 mcg/m and vasopressin at 0.04 units per minute. She remains on antibiotics in the form of Zerbaxa, Levaquin and daptomycin. Urine culture was positive for Enterococcus faecalis and Pseudomonas aeruginosa. Blood cultures have revealed no growth. Sputum culture pending. White count 6.8. Hemoglobin 8.4. Platelets 268. Sodium 140. Potassium 4.5. BUN 81. Creatinine 2.72. Glucose 162. Calcium 6.0. AST 166. ALT 21. Alk phos 385. Currently in a +3.1 L balance. She is continued on DuoNeb inhalations, Pulmicort and Perforomist inhalations. The patient is seen today 08/13/2022 in follow-up in the intensive care unit. He remains intubated and on mechanical ventilator currently and assist-control mode at a rate of 28, tidal volume 400, FiO2 40% and a PEEP of 5. Morning blood gases revealed a pO2 of 100, pCO2 is 88 and a pH of 7.35. She did have issues with atrial fibrillation and rapid ventricular response and was seen by cardiology earlier this morning who initiated amiodarone bolus and started a drip at 1 mg/m. She has normal saline at 100 MLS per hour. Propofol at 20 mcg/kg/m. Norepinephrine at 36 mcg/m and vasopressin at 0.04 units per minute. Tube feeds are currently on hold per surgery for possible ileus. Chest x-ray shows similar bibasilar airspace opacities. Urine culture positive for Enterococcus faecalis and pseudomonas aeruginosa. Blood culture preliminary positive for anaerobic gram-negative bacilli. Sputum culture hasn't for Ange. White count 9.6. Hemoglobin 8.2. Platelets 244. Sodium 141. Potassium 3.5. Bicarb 20. BUN 75. Creatinine 2.52. Glucose 159. Calcium 5.6. AST 162. ALT 19. Albumin 1.8. Currently in a +312 mL balance. She is currently on bronchodilators. Remains on Eraxis, Zerbaxa, daptomycin. Currently on Lovenox with pharmacy to dose. 08/14/2022, I'm seeing the patient for a follow-up. A very complicated case of a septic shock and 87-year-old female patient weighs currently on mechanical ventilator. The patient has had recurrent [place] tract infection in addition to multitude of comorbidities. She came with a septic shock and suspected bowel obstruction. In summary, the patient came with a septic shock and multisystem organ failure, currently intubated on a mechanical ventilator. This morning, she is on propofol running at 20 mcg/kg/m and she is calm and comfortable in bed at 6 with a mechanical ventilator. She'll assist-control mode of mechanical ventilation at the rate of 28 with a tidal volume of 400 and FiO2 40% with a PEEP of 5. Blood gas from today shows a pH of 7.37 with a pCO2 of 38 and pO2 113. Chest x-ray was also noted from today and there is adequate positioning of the orotracheal tube. There is also persistent bilateral pulmonary infiltrates and small effusions. There may be an underlying component of CHF. Airspace disease is seen in the left perihilar and right lower lobe area. Hemod ynamically, the patient is on pressors and norepinephrine is running at 0.14 mcg/kg/m and she is also on a physiologic dose of vasopressin. She remains active fibrillation and she does have a rapid ventricular response in her heart rate is around 120. She is on a broad-spectrum antibiotic coverage. She is currently on a combination of an axis and Zerbaxa and the cultures that were obtained earlier showed Pseudomonas that was multidrug resistance and Enterococcus faecalis in her urine, there was an anaerobic gram-negative bacillus in the blood, and there was also Ange and the blood. Hence, the antibiotic coverage was adjusted. In terms of her white cell count, she is currently running a white second of 11.2 with a hemoglobin of 7.8 and a platelet count of 229. Electrolytes are stable with a sodium of 144, potassium is at 3.0 with these to be replaced, BUN is at 67 with a creatinine of 2.21. The blood sugars at 147. The patient was taken off the amiodarone drip. The patient is on Levemir insulin 10 units and she is also receiving a sliding scale coverage. She is nothing by mouth. NG tube is in place. Output has been dark gastric material and output is minimal in the order of 500 mL per 24 hours, quite liquidy. Abdomen is soft, the patient was given several enemas without any successful bowel movement. Her previous echocardiogram from March 2022 as shown a moderate degree of aortic stenosis. Hylton cath is in place. Urine output is in order of 100 mL an hour and the patient is currently on IV fluids in the form of normal saline at rate of 50 mL an hour. She is afebrile. The patient also has a stage II wound in her coccyx. Fluid balance over the past 24 hours has been in the order of 730 mL. Objective - Vital Signs Vital signs: Vital Signs Temp 97.6 F 08/14/22 08:00 Pulse 124 H 08/14/22 09:00 Resp 24 08/14/22 09:00 BP 125/60 08/14/22 01:30 Pulse Ox 99 08/14/22 09:00 FiO2 40 08/14/22 08:00 Intake & Output 08/13/22 08/14/22 08/14/22 18:59 06:59 18:59 Intake Total 8310.523 5637.293 1041.859 Output Total 1805 1500 905 Balance 172.583 558.293 136.859 Weight 123.1 kg Intake: IV 1736 1476 546 .9 20 200 240 40 .9 3cc/hr 36 36 6 Anidulafungin 200 mg In 200 100 Sodium Chloride 0.9% 200 ml @ 84 mls/hr IVPB ONCE ONE Rx#:[id number] Ceftazidime/Avibactam 0. 200 94 gm In Sodium Chloride 0.9% 100 ml @ 50 mls/hr IVPB Q24H [facility] Rx#: [id number] Potassium Chloride 20 meq 100 100 In Water For Injection 1 100ml.bag @ 50 mls/hr IVPB Q2H [facility] Rx#: [id number] Sodium Chloride 0.9% 1, 1000 1200 300 000 ml @ 100 mls/hr IV . Q10H [facility] Rx#:[id number] Intake, IV Titration 241.583 582.293 495.859 Amount Amiodarone 360 mg In 200 Dextrose 5% in Water 200 ml @ 1 MG/MIN 33.333 mls/ hr IV .Q6H [facility] Rx#: [id number] Amiodarone 450 mg In 247.783 Dextrose 5% in Water 250 ml @ 0.5 MG/MIN 16.667 mls/hr IV .Q15H [facility] Rx#: [id number] Calcium Gluconate in NaCl 100 2 gm In Saline 1 100ml. bag @ 50 mls/hr IVPB [facility]CE [facility] Rx#:[id number] Ceftolozane/Tazobactam 0. 100 75 gm In Sodium Chloride 0.9% 100 ml @ 100 mls/hr IV Q8HR [facility] Rx#:[id number] Norepinephrine 32 mg In 144.791 170.574 27.625 Sodium Chloride 0.9% 218 ml @ 0.5 MCG/KG/MIN 25. 547 mls/hr IV .Q9H48M [facility] Rx#:[id number] propofoL 1,000 mg In 96.792 163.936 68.234 Empty Bag 1 bag @ 15 MCG/ KG/MIN 9.81 mls/hr IV . [id number] [facility] Rx#:[id number] Output: Gastric Drainage 300 500 Urine 1505 1500 405 Other: Voiding Method Indwelling Catheter Indwelling Catheter Indwelling Catheter ABP, PAP, CO, CI - Last Documented Arterial Blood Pressure 126/52 - Exam GENERAL EXAM: Intubated, sedated, 87-year-old morbidly obese female, on 40% FiO2 and a PEEP of 5. HEAD: Normocephalic. EYES: Sluggish reaction of pupils, equal size. NOSE: Nasogastric tube secured in place. Clear with pink turbinates. THROAT: Oral endotracheal tube in place. NECK: No masses, no JVD. CHEST: No chest wall deformity. LUNGS: Equal air entry with crackles in the bilateral bases. CVS: S1 and S2 normal with no audible murmur, irregular rhythm. ABDOMEN: No hepatosplenomegaly, normal bowel sounds, no guarding or rigidity. SPINE: No scoliosis or deformity SKIN: No rashes CENTRAL NERVOUS SYSTEM: Sedated, tone is normal in all 4 extremities. EXTREMITIES: There is 1-2+ peripheral edema. Changes of chronic venous stasis. No clubbing, no cyanosis. Peripheral pulses are intact. - Labs CBC & Chem 7: 08/14/22 04:17 08/14/22 04:17 Labs: Abnormal Lab Results - Last 24 Hours (Table) 08/14/22 08/14/22 08/14/22 Range/Units 04:17 04:17 05:47 WBC 11.2 H (3.8-10.6) k/uL RBC 2.99 L (3.80-5.40) m/uL Hgb 7.8 L (11.4-16.0) gm/dL Hct 25.6 L (34.0-46.0) % MCHC 30.4 L (31.0-37.0) g/dL RDW 16.4 H (11.5-15.5) % Neutrophils # 9.4 H (1.3-7.7) k/uL Lymphocytes # 0.9 L (1.0-4.8) k/uL ABG pO2 113 H (83-108) mmHg ABG O2 Saturation 98.0 H (94-97) % Potassium 3.0 L (3.5-5.1) mmol/L Chloride 116 H (98-107) mmol/L Carbon Dioxide 21 L (22-30) mmol/L BUN 67 H (7-17) mg/dL Creatinine 2.21 H (0.52-1.04) mg/dL Glucose 123 H (74-99) mg/dL POC Glucose (mg/dL) (70-110) mg/dL Calcium 5.8 L* (8.4-10.2) mg/dL 08/14/22 08/14/22 08/14/22 Range/Units 06:07 06:30 06:33 WBC (3.8-10.6) k/uL RBC (3.80-5.40) m/uL Hgb (11.4-16.0) gm/dL Hct (34.0-46.0) % MCHC (31.0-37.0) g/dL RDW (11.5-15.5) % Neutrophils # (1.3-7.7) k/uL Lymphocytes # (1.0-4.8) k/uL ABG pO2 (83-108) mmHg ABG O2 Saturation (94-97) % Potassium (3.5-5.1) mmol/L Chloride (98-107) mmol/L Carbon Dioxide (22-30) mmol/L BUN (7-17) mg/dL Creatinine (0.52-1.04) mg/dL Glucose (74-99) mg/dL POC Glucose (mg/dL) 58 L 61 L 147 H (70-110) mg/dL Calcium (8.4-10.2) mg/dL Microbiology - Last 24 Hours (Table) 08/10/22 17:00 Blood Culture - Preliminary Blood No Growth after 72 hours 08/09/22 14:19 Blood Culture - Preliminary Blood No Growth after 96 hours 08/08/22 13:00 Blood Culture - Preliminary Blood No Growth after 120 hours 08/11/22 16:05 Blood Culture Gram Stain - Preliminary Blood Blood Culture - Preliminary Ange albicans 08/08/22 13:30 Blood Culture Gram Stain - Preliminary Blood Blood Culture - Preliminary Anaerobic Gm Negative Bacilli 08/11/22 17:06 Gram Stain - Final Sputum Sputum Culture - Final Ange albicans Assessment and Plan Plan: Acute on chronic hypoxemic respiratory failure secondary to suspected diastolic congestive heart failure. The patient did deteriorate on 08/10/2022 requiring intubation mechanical ventilatory support. She has a component of CHF and multiple infiltrates bilaterally, as superinfection with a pneumonia cannot be completely ruled out. Septic shock secondary to above, now requiring pressor support in the form of norepinephrine and vasopressin, still hypotensive, still requiring pressors,, though was recommended antibiotics with a combination of an axis and Zerbaxa urinary tract infection, sepsis. Urine culture positive for Enterococcus faecalis and Pseudomonas aeruginosa Systemic candidiasis with positive culture with Ange Anaerobic gram-negative bacteria in the blood Atrial fibrillation with a rapid ventricular response initiated on amiodarone drip is currently off amiodarone normal, Suspected ileus, tube feeds on hold, considered too high risk for surgical intervention per surgical services Previous history of urinary tract infections History of atrial fibrillation on Eliquis in the outpatient Acute on chronic kidney disease, creatinine peaked 2.77 and currently is improving slowly Recent COVID-19 infection History of valvular heart disease with aortic valve stenosis and preserved LV function, based on an echocardiogram from March 2022 Chronic changes in the right lower lobe with small right pleural effusion Acute on chronic anemia my current hemoglobin 8.2 History of chronic obstructive pulmonary disease History of prior tobacco dependence History of diastolic congestive heart failure History of coronary disease with multiple stent placements History of CVA/TIA History of diabetes mellitus Morbid obesity Hypertension Hyperlipidemia Hypothyroidism Poor overall functional performance based on the above-mentioned multiple comorbidities with recent stay and ECF Plan: Ventilator support, no vent changes will be done for today Continue same antibiotic coverage IV fluids to KVO Producing adequate amount of urine output Monitor renal function Monitor blood pressure and gradually wean off the pressors if possible, norepinephrine first Currently off amiodarone Keep propofol On therapeutic Lovenox per pharmacy dosing Continue Eraxis/Zerbaxa Continue bronchodilators Obtain a flat film of the abdomen Do a digital rectal exam for stool packing Use Dulcolax suppositories Overall prognosis remains poor We will continue to follow and make further recommendations based on her clinical status Is extremely critical. Case was discussed with the daughter at the bedside. We'll continue to follow. Evaluation was done >30 min Time with Patient: Greater than 30
--- NOTE | 2022-08-14 11:00 | P.PN ---
Subjective Progress Note Date: 08/14/22 CHIEF COMPLAINT: Abdominal pain HISTORY OF PRESENT ILLNESS: Patient remains in the ICU intubated and on m echanical ventilation. She is requiring Levophed and vasopressin. Patient continues to have low-grade temps. T-max of 100.1. She has had only had smears of bowel movements with enemas. She is having about 500 mL bilious dark green output through her NG tube and 24-hour period. Critical care service has ordered an abdominal x-ray. She is tachycardic. WBC did go up from 9.6-11.2 Hgb is 7.8 platelets 229 sodium is 140 potassium 3.0 creatinine 2.21 calcium 5.8 patient is currently off of the IV amiodarone. She is receiving calcium gluconate and IV potassium. Chest x-ray persistent bilateral infiltrate and pleural effusion correlate for CHF versus pneumonia PHYSICAL EXAM: VITAL SIGNS: Reviewed GENERAL: no acute distress. Head is atraumatic, normocephalic. No nasal drainage. NECK: Supple without lymphadenopathy. CHEST: Non-labored respirations and equal bilateral excursions. CARDIOVASCULAR: Palpable 2+ radial pulses. ABDOMEN: Soft. distended. MUSCULOSKELETAL: No clubbing or cyanosis. ASSESSMENT: 1. Sigmoid volvulus 2. Constipation 3. UTI with sepsis 4. Syncopal episode 5. Lactic acidosis 6. Acute on chronic kidney disease 7. History of atrial fibrillation 8. History of CVA 9. Hypokalemia 10. Hypocalcemia PLAN: -No surgical intervention planned -Patient is considered high risk for surgical intervention -Continue conservative management -Continue NG tube for decompression -Continue supportive care -Follow up on abdominal x-ray Physician Link Trainer Maintenance Man note has been reviewed by physician. Signing provider agrees with the documented findings, assessment, and plan of care. Objective - Vital Signs Vital signs: Vital Signs Temp 97.6 F 08/14/22 08:00 Pulse 124 H 08/14/22 09:00 Resp 24 08/14/22 09:00 BP 125/60 08/14/22 01:30 Pulse Ox 99 08/14/22 09:00 FiO2 40 08/14/22 08:00 Intake & Output 08/13/22 08/14/22 08/14/22 18:59 06:59 18:59 Intake Total 1589.830 9705.293 1041.859 Output Total 1805 1500 905 Balance 172.583 558.293 136.859 Weight 123.1 kg Intake: IV 1736 1476 546 .9 20 200 240 40 .9 3cc/hr 36 36 6 Anidulafungin 200 mg In 200 100 Sodium Chloride 0.9% 200 ml @ 84 mls/hr IVPB ONCE ONE Rx#:[id number] Ceftazidime/Avibactam 0. 200 94 gm In Sodium Chloride 0.9% 100 ml @ 50 mls/hr IVPB Q24H [facility] Rx#: [id number] Potassium Chloride 20 meq 100 100 In Water For Injection 1 100ml.bag @ 50 mls/hr IVPB Q2H [facility] Rx#: [id number] Sodium Chloride 0.9% 1, 1000 1200 300 000 ml @ 100 mls/hr IV . Q10H [facility] Rx#:[id number] Intake, IV Titration 241.583 582.293 495.859 Amount Amiodarone 360 mg In 200 Dextrose 5% in Water 200 ml @ 1 MG/MIN 33.333 mls/ hr IV .Q6H [facility] Rx#: [id number] Amiodarone 450 mg In 247.783 Dextrose 5% in Water 250 ml @ 0.5 MG/MIN 16.667 mls/hr IV .Q15H [facility] Rx#: [id number] Calcium Gluconate in NaCl 100 2 gm In Saline 1 100ml. bag @ 50 mls/hr IVPB ONCE [facility] Rx#:[id number] Ceftolozane/Tazobactam 0. 100 75 gm In Sodium Chloride 0.9% 100 ml @ 100 mls/hr IV Q8HR [facility] Rx#:[id number] Norepinephrine 32 mg In 144.791 170.574 27.625 Sodium Chloride 0.9% 218 ml @ 0.5 MCG/KG/MIN 25. 547 mls/hr IV .Q9H48M [facility] Rx#:[id number] propofoL 1,000 mg In 96.792 163.936 68.234 Empty Bag 1 bag @ 15 MCG/ KG/MIN 9.81 mls/hr IV . [id number] [facility] Rx#:[id number] Output: Gastric Drainage 300 500 Urine 1505 1500 405 Other: Voiding Method Indwelling Catheter Indwelling Catheter Indwelling Catheter ABP, PAP, CO, CI - Last Documented Arterial Blood Pressure 126/52 - Labs CBC & Chem 7: 08/14/22 04:17 08/14/22 04:17 Labs: Abnormal Lab Results - Last 24 Hours (Table) 08/14/22 08/14/22 08/14/22 Range/Units 04:17 04:17 05:47 WBC 11.2 H (3.8-10.6) k/uL RBC 2.99 L (3.80-5.40) m/uL Hgb 7.8 L (11.4-16.0) gm/dL Hct 25.6 L (34.0-46.0) % MCHC 30.4 L (31.0-37.0) g/dL RDW 16.4 H (11.5-15.5) % Neutrophils # 9.4 H (1.3-7.7) k/uL Lymphocytes # 0.9 L (1.0-4.8) k/uL ABG pO2 113 H (83-108) mmHg ABG O2 Saturation 98.0 H (94-97) % Potassium 3.0 L (3.5-5.1) mmol/L Chloride 116 H (98-107) mmol/L Carbon Dioxide 21 L (22-30) mmol/L BUN 67 H (7-17) mg/dL Creatinine 2.21 H (0.52-1.04) mg/dL Glucose 123 H (74-99) mg/dL POC Glucose (mg/dL) (70-110) mg/dL Calcium 5.8 L* (8.4-10.2) mg/dL 08/14/22 08/14/22 08/14/22 Range/Units 06:07 06:30 06:33 WBC (3.8-10.6) k/uL RBC (3.80-5.40) m/uL Hgb (11.4-16.0) gm/dL Hct (34.0-46.0) % MCHC (31.0-37.0) g/dL RDW (11.5-15.5) % Neutrophils # (1.3-7.7) k/uL Lymphocytes # (1.0-4.8) k/uL ABG pO2 (83-108) mmHg ABG O2 Saturation (94-97) % Potassium (3.5-5.1) mmol/L Chloride (98-107) mmol/L Carbon Dioxide (22-30) mmol/L BUN (7-17) mg/dL Creatinine (0.52-1.04) mg/dL Glucose (74-99) mg/dL POC Glucose (mg/dL) 58 L 61 L 147 H (70-110) mg/dL Calcium (8.4-10.2) mg/dL Microbiology - Last 24 Hours (Table) 08/10/22 17:00 Blood Culture - Preliminary Blood No Growth after 72 hours 08/09/22 14:19 Blood Culture - Preliminary Blood No Growth after 96 hours 08/08/22 13:00 Blood Culture - Preliminary Blood No Growth after 120 hours 08/11/22 16:05 Blood Culture Gram Stain - Preliminary Blood Blood Culture - Preliminary Ange albicans 08/08/22 13:30 Blood Culture Gram Stain - Preliminary Blood Blood Culture - Preliminary Anaerobic Gm Negative Bacilli 08/11/22 17:06 Gram Stain - Final Sputum Sputum Culture - Final Ange albicans
--- NOTE | 2022-08-14 11:40 | XR ---
EXAMINATION TYPE: XR abdomen 1V DATE OF EXAM: 08/14/2022 COMPARISON: NONE HISTORY: Constipation TECHNIQUE: One view abdominal series FINDINGS: Exam limited by motion position Postsurgical changes are seen involving vertebral, multilevel degenerative disc disease. Surgical cli ps are seen in the abdomen. There does appear to be retained fecal debris involving the colon. NG tub e seen near the level of the left upper quadrant. Surgical clips right upper quadrant. Assessment for free air or nondiagnostic. Bowel gas pattern nonspecific. Right-sided femoral line seen with vascula r calcifications. IMPRESSION: 1. Nonspecific gas pattern with retained fecal debris correlate for constipation.
[2022-08-14 12:44] LABS: Glucose,Whole Blood 166 mg/dL (70-110)
[2022-08-14] MEDS ORDERED: MVI, ADULT NO.4 WITH VIT K 10 ML, TRACE (CONC-1ML/DOSE) 1 ML, SODIUM ACETATE 30 MEQ, PO... IV ONE ×6 (14:00)
[2022-08-14 17:34] LABS: Glucose,Whole Blood 167 mg/dL (70-110)
--- NOTE | 2022-08-14 18:16 | P.PN ---
Subjective Progress Note Date: 08/14/22 Principal diagnosis: Sepsis, acute kidney injury, shortness of breath, heart failure, on ventilator at 40% FiO2, on vasopressin and Levophed doses of both meds have been reduced, b lood pressure is improved urinary output has improved, low-grade temp noted Patient presented to the hospital on 08/08/2022 secondary to shortness of breath hypotension patient had syncopal episode on the toilet, was recently discharged from rehab facility, brought in by EMS, was admitted to the stepdown unit, and subsequently transferred to the intensive care unit where she was placed on BiPAP secondary to severe acidosis and was intubated and placed on pressors , despite multiple boluses of normal saline despite receiving IV Lasix. This patient has a long-standing history of diabetes hypertension Objective - Vital Signs Vital signs: Vital Signs Temp 97.7 F 08/14/22 16:00 Pulse 121 H 08/14/22 16:00 Resp 14 08/14/22 16:00 BP 125/60 08/14/22 01:30 Pulse Ox 97 08/14/22 16:00 FiO2 40 08/14/22 16:00 Intake & Output 08/13/22 08/14/22 08/14/22 18:59 06:59 18:59 Intake Total 8225.798 0599.293 1724.517 Output Total 1805 1500 1705 Balance 172.583 558.293 19.517 Weight 123.1 kg 123.1 kg Intake: IV 1736 1476 693 .9 10 200 240 160 .9 3cc/hr 36 36 33 Anidulafungin 200 mg In 200 100 Sodium Chloride 0.9% 200 ml @ 84 mls/hr IVPB ONCE [facility] Rx#:[id number] Ceftazidime/Avibactam 0. 200 94 gm In Sodium Chloride 0.9% 100 ml @ 50 mls/hr IVPB Q24H [facility] Rx#: [id number] Potassium Chloride 20 meq 100 100 In Water For Injection 1 100ml.bag @ 50 mls/hr IVPB Q2H [facility] Rx#: [id number] Sodium Chloride 0.9% 1, 1000 1200 300 000 ml @ 50 mls/hr IV . Q20H [facility] Rx#:[id number] Intake, IV Titration 241.583 470.671 9241.517 Amount Amiodarone 360 mg In 200 Dextrose 5% in Water 200 ml @ 1 MG/MIN 33.333 mls/ hr IV .Q6H [facility] Rx#: [id number] Amiodarone 450 mg In 247.783 97.502 Dextrose 5% in Water 250 ml @ 0.5 MG/MIN 16.667 mls/hr IV .Q15H [facility] Rx#: [id number] Calcium Gluconate in NaCl 100 2 gm In Saline 1 100ml. bag @ 50 mls/hr IVPB ONCE ONE Rx#:[id number] Ceftolozane/Tazobactam 0. 100 75 gm In Sodium Chloride 0.9% 100 ml @ 100 mls/hr IV Q8HR [facility] Rx#:[id number] Mvi, Adult No.4 with Vit 120 K 10 ml Trace (Conc-1Ml/ Dose) 1 ml Sodium Acetate 30 meq Potassium Chloride 20 meq Calcium Gluconate 1 gm In Amino Acid 5%-D15w 1,000 ml @ 30 mls/hr IV .Q24H [facility] Rx #:[id number] Norepinephrine 32 mg In 144.791 170.574 27.625 Sodium Chloride 0.9% 218 ml @ 0.5 MCG/KG/MIN 25. 547 mls/hr IV .Q9H48M [facility] Rx#:[id number] Potassium Chloride 20 meq 200 In Water For Injection 1 100ml.bag @ 50 mls/hr IVPB [facility] Rx#: [id number] propofoL 1,000 mg In 96.792 163.936 186.390 Empty Bag 1 bag @ 15 MCG/ KG/MIN 9.81 mls/hr IV . [id number] [facility] Rx#:[id number] Output: Gastric Drainage 300 500 Urine 1505 1500 1205 Other: Voiding Method Indwelling Catheter Indwelling Catheter Indwelling Catheter ABP, PAP, CO, CI - Last Documented Arterial Blood Pressure 120/45 - Exam General: Patient is intubated on a vent HEENT: Normocephalic atraumatic, senescent pattern baldness Neck: [No adenopathy.] Cardiac: [Heart regularly irregular. No S3. No S4. No clicks, rubs. Lungs: Diminished breath sounds bilaterally scattered rhonchi noted Abdomen: [No mass. No organomegaly. Bowel sounds presnt and normoactive in all 4 quadrants. This patient is morbidly obese Extremes: [2+ edema bilateral upper and lower extremes no cyanosis no claudication normal pulses] : Normal female genitalia Skin: [No rash.] Neurologic: Patient is sedated on a ventilatory support Lymphatic: [No adenopathy.] - Labs CBC & Chem 7: 08/14/22 04:17 08/14/22 17:30 Labs: Abnormal Lab Results - Last 24 Hours (Table) 08/14/22 08/14/22 08/14/22 Range/Units 04:17 04:17 05:47 WBC 11.2 H (3.8-10.6) k/uL RBC 2.99 L (3.80-5.40) m/uL Hgb 7.8 L (11.4-16.0) gm/dL Hct 25.6 L (34.0-46.0) % MCHC 30.4 L (31.0-37.0) g/dL RDW 16.4 H (11.5-15.5) % Neutrophils # 9.4 H (1.3-7.7) k/uL Lymphocytes # 0.9 L (1.0-4.8) k/uL ABG pO2 113 H (83-108) mmHg ABG O2 Saturation 98.0 H (94-97) % Potassium 3.0 L (3.5-5.1) mmol/L Chloride 116 H (98-107) mmol/L Carbon Dioxide 21 L (22-30) mmol/L BUN 67 H (7-17) mg/dL Creatinine 2.21 H (0.52-1.04) mg/dL Glucose 123 H (74-99) mg/dL POC Glucose (mg/dL) (70-110) mg/dL Calcium 5.8 L* (8.4-10.2) mg/dL 08/14/22 08/14/22 08/14/22 Range/Units 06:07 06:30 06:33 WBC (3.8-10.6) k/uL RBC (3.80-5.40) m/uL Hgb (11.4-16.0) gm/dL Hct (34.0-46.0) % MCHC (31.0-37.0) g/dL RDW (11.5-15.5) % Neutrophils # (1.3-7.7) k/uL Lymphocytes # (1.0-4.8) k/uL ABG pO2 (83-108) mmHg ABG O2 Saturation (94-97) % Potassium (3.5-5.1) mmol/L Chloride (98-107) mmol/L Carbon Dioxide (22-30) mmol/L BUN (7-17) mg/dL Creatinine (0.52-1.04) mg/dL Glucose (74-99) mg/dL POC Glucose (mg/dL) 58 L 61 L 147 H (70-110) mg/dL Calcium (8.4-10.2) mg/dL 08/14/22 08/14/22 Range/Units 12:42 17:33 WBC (3.8-10.6) k/uL RBC (3.80-5.40) m/uL Hgb (11.4-16.0) gm/dL Hct (34.0-46.0) % MCHC (31.0-37.0) g/dL RDW (11.5-15.5) % Neutrophils # (1.3-7.7) k/uL Lymphocytes # (1.0-4.8) k/uL ABG pO2 (83-108) mmHg ABG O2 Saturation (94-97) % Potassium (3.5-5.1) mmol/L Chloride (98-107) mmol/L Carbon Dioxide (22-30) mmol/L BUN (7-17) mg/dL Creatinine (0.52-1.04) mg/dL Glucose (74-99) mg/dL POC Glucose (mg/dL) 166 H 167 H (70-110) mg/dL Calcium (8.4-10.2) mg/dL Microbiology - Last 24 Hours (Table) 08/09/22 14:19 Blood Culture - Preliminary Blood No Growth after 120 hours 08/08/22 13:00 Blood Culture - Final Blood No Growth after 144 hours 08/11/22 16:05 Blood Culture Gram Stain - Final Blood Blood Culture - Final Ange albicans 08/10/22 17:00 Blood Culture - Preliminary Blood No Growth after 72 hours Assessment and Plan (1) Sepsis Current Visit: Yes Status: Acute Code(s): A41.9 - SEPSIS, UNSPECIFIED ORGANISM SNOMED Code(s): 66102509 (2) Acquired hypothyroidism Current Visit: No Status: Acute Code(s): E03.9 - HYPOTHYROIDISM, UNSPECIFIED SNOMED Code(s): 114326822 (3) Acute exacerbation of chronic obstructive pulmonary disease Current Visit: Yes Status: Acute Code(s): J44.1 - CHRONIC OBSTRUCTIVE PULMONARY DISEASE W (ACUTE) EXACERBATION SNOMED Code(s): 550538779 (4) Acute on chronic diastolic (congestive) heart failure Current Visit: No Status: Acute Code(s): I50.33 - ACUTE ON CHRONIC DIASTOLIC (CONGESTIVE) HEART FAILURE SNOMED Code(s): 268707221 (5) Acute on chronic renal failure Current Visit: No Status: Acute Code(s): N17.9 - ACUTE KIDNEY FAILURE, UNSPECIFIED; N18.9 - CHRONIC KIDNEY DISEASE, UNSPECIFIED SNOMED Code(s): 159115559 (6) Acute pulmonary edema Current Visit: No Status: Acute Code(s): J81.0 - ACUTE PULMONARY EDEMA SNOMED Code(s): 69448064 (7) Acute renal failure Current Visit: No Status: Acute Code(s): N17.9 - ACUTE KIDNEY FAILURE, UNSPECIFIED SNOMED Code(s): 39192547 (8) Altered mental status Current Visit: No Status: Acute Code(s): R41.82 - ALTERED MENTAL STATUS, UNSPECIFIED SNOMED Code(s): 354794265 (9) Anemia Current Visit: Yes Status: Acute Code(s): D64.9 - ANEMIA, UNSPECIFIED SNOMED Code(s): 870004606 (10) CAD (coronary atherosclerotic disease) Current Visit: No Status: Acute Code(s): I25.10 - ATHSCL HEART DISEASE OF [place] CORONARY ARTERY W/O ANG PCTRS SNOMED Code(s): 102377149 (11) CHF (congestive heart failure) Current Visit: No Status: Acute Code(s): I50.9 - HEART FAILURE, UNSPECIFIED SNOMED Code(s): 81002578 (12) CKD (chronic kidney disease) stage 3, GFR 30-59 ml/min Current Visit: No Status: Acute Code(s): N18.30 - CHRONIC KIDNEY DISEASE, STAGE 3 UNSPECIFIED SNOMED Code(s): 978084137 (13) COPD exacerbation Current Visit: No Status: Acute Code(s): J44.1 - CHRONIC OBSTRUCTIVE PULMONARY DISEASE W (ACUTE) EXACERBATION SNOMED Code(s): 798872865 (14) COVID-19 Current Visit: No Status: Acute Code(s): U07.1 - COVID-19 SNOMED Code(s): 743658240 (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 Current Visit: No Status: Acute Code(s): M54.42 - LUMBAGO WITH SCIATICA, LEFT SIDE; M54.41 - LUMBAGO WITH SCIATICA, RIGHT SIDE; G89.29 - OTHER CHRONIC PAIN SNOMED Code(s): 548880333 Plan: Acute kidney injury secondary to urinary sepsis, slowly improving Hypotension secondary to sepsis, improved Acute respiratory failure ventilator dependent Left lower lobe pneumonia Urinary tract infection secondary to Pseudomonas and enterococcus Elevated liver function secondary to sepsis Aggressive supportive care being provided Prognosis guarded secondary to multiorgan failure ventilator dependence and acute kidney injury Time with Patient: Greater than 30
--- NOTE | 2022-08-14 18:19 | P.PN ---
Subjective Progress Note Date: 08/14/22 Principal diagnosis: Sepsis, acute kidney injury, shortness of breath, heart failure, on ventilator at 40% FiO2, on vasopressin and Levophed doses of both meds have been reduced, b lood pressure is improved urinary output has improved, low-grade temp noted Patient presented to the hospital on 08/08/2022 secondary to shortness of breath hypotension patient had syncopal episode on the toilet, was recently discharged from rehab facility, brought in by EMS, was admitted to the stepdown unit, and subsequently transferred to the intensive care unit where she was placed on BiPAP secondary to severe acidosis and was intubated and placed on pressors , despite multiple boluses of normal saline despite receiving IV Lasix. This patient has a long-standing history of diabetes hypertension Objective - Vital Signs Vital signs: Vital Signs Temp 97.7 F 08/14/22 16:00 Pulse 121 H 08/14/22 16:00 Resp 14 08/14/22 16:00 BP 125/60 08/14/22 01:30 Pulse Ox 97 08/14/22 16:00 FiO2 40 08/14/22 16:00 Intake & Output 08/13/22 08/14/22 08/14/22 18:59 06:59 18:59 Intake Total 8172.038 2416.293 1724.517 Output Total 1805 1500 1705 Balance 172.583 558.293 19.517 Weight 123.1 kg 123.1 kg Intake: IV 1736 1476 693 .9 10 200 240 160 .9 3cc/hr 36 36 33 Anidulafungin 200 mg In 200 100 Sodium Chloride 0.9% 200 ml @ 84 mls/hr IVPB ONCE ONE Rx#:[id number] Ceftazidime/Avibactam 0. 200 94 gm In Sodium Chloride 0.9% 100 ml @ 50 mls/hr IVPB Q24H [facility] Rx#: [id number] Potassium Chloride 20 meq 100 100 In Water For Injection 1 100ml.bag @ 50 mls/hr IVPB Q2H [facility] Rx#: [id number] Sodium Chloride 0.9% 1, 1000 1200 300 000 ml @ 50 mls/hr IV . Q20H [facility] Rx#:[id number] Intake, IV Titration 241.583 546.119 1550.517 Amount Amiodarone 360 mg In 200 Dextrose 5% in Water 200 ml @ 1 MG/MIN 33.333 mls/ hr IV .Q6H [facility] Rx#: [id number] Amiodarone 450 mg In 247.783 97.502 Dextrose 5% in Water 250 ml @ 0.5 MG/MIN 16.667 mls/hr IV .Q15H [facility] Rx#: [id number] Calcium Gluconate in NaCl 100 2 gm In Saline 1 100ml. bag @ 50 mls/hr IVPB ONCE [facility] Rx#:[id number] Ceftolozane/Tazobactam 0. 100 75 gm In Sodium Chloride 0.9% 100 ml @ 100 mls/hr IV Q8HR [facility] Rx#:[id number] Mvi, Adult No.4 with Vit 120 K 10 ml Trace (Conc-1Ml/ Dose) 1 ml Sodium Acetate 30 meq Potassium Chloride 20 meq Calcium Gluconate 1 gm In Amino Acid 5%-D15w 1,000 ml @ 30 mls/hr IV .Q24H [facility] Rx #:[id number] Norepinephrine 32 mg In 144.791 170.574 27.625 Sodium Chloride 0.9% 218 ml @ 0.5 MCG/KG/MIN 25. 547 mls/hr IV .Q9H48M [facility] Rx#:[id number] Potassium Chloride 20 meq 200 In Water For Injection 1 100ml.bag @ 50 mls/hr IV[facility] Rx#: [id number] propofoL 1,000 mg In 96.792 163.936 186.390 Empty Bag 1 bag @ 15 MCG/ KG/MIN 9.81 mls/hr IV . [id number] [facility] Rx#:[id number] Output: Gastric Drainage 300 500 Urine 1505 1500 1205 Other: Voiding Method Indwelling Catheter Indwelling Catheter Indwelling Catheter ABP, PAP, CO, CI - Last Documented Arterial Blood Pressure 120/45 - Exam General: Patient is intubated on a vent HEENT: Normocephalic atraumatic, senescent pattern baldness Neck: [No adenopathy.] Cardiac: [Heart regularly irregular. No S3. No S4. No clicks, rubs. Lungs: Diminished breath sounds bilaterally scattered rhonchi noted Abdomen: [No mass. No organomegaly. Bowel sounds presnt and normoactive in all 4 quadrants. This patient is morbidly obese Extremes: [2+ edema bilateral upper and lower extremes no cyanosis no claudication normal pulses] : Normal female genitalia Skin: [No rash.] Neurologic: Patient is sedated on a ventilatory support Lymphatic: [No adenopathy.] - Labs CBC & Chem 7: 08/14/22 04:17 08/14/22 17:30 Labs: Abnormal Lab Results - Last 24 Hours (Table) 08/14/22 08/14/22 08/14/22 Range/Units 04:17 04:17 05:47 WBC 11.2 H (3.8-10.6) k/uL RBC 2.99 L (3.80-5.40) m/uL Hgb 7.8 L (11.4-16.0) gm/dL Hct 25.6 L (34.0-46.0) % MCHC 30.4 L (31.0-37.0) g/dL RDW 16.4 H (11.5-15.5) % Neutrophils # 9.4 H (1.3-7.7) k/uL Lymphocytes # 0.9 L (1.0-4.8) k/uL ABG pO2 113 H (83-108) mmHg ABG O2 Saturation 98.0 H (94-97) % Potassium 3.0 L (3.5-5.1) mmol/L Chloride 116 H (98-107) mmol/L Carbon Dioxide 21 L (22-30) mmol/L BUN 67 H (7-17) mg/dL Creatinine 2.21 H (0.52-1.04) mg/dL Glucose 123 H (74-99) mg/dL POC Glucose (mg/dL) (70-110) mg/dL Calcium 5.8 L* (8.4-10.2) mg/dL 08/14/22 08/14/22 08/14/22 Range/Units 06:07 06:30 06:33 WBC (3.8-10.6) k/uL RBC (3.80-5.40) m/uL Hgb (11.4-16.0) gm/dL Hct (34.0-46.0) % MCHC (31.0-37.0) g/dL RDW (11.5-15.5) % Neutrophils # (1.3-7.7) k/uL Lymphocytes # (1.0-4.8) k/uL ABG pO2 (83-108) mmHg ABG O2 Saturation (94-97) % Potassium (3.5-5.1) mmol/L Chloride (98-107) mmol/L Carbon Dioxide (22-30) mmol/L BUN (7-17) mg/dL Creatinine (0.52-1.04) mg/dL Glucose (74-99) mg/dL POC Glucose (mg/dL) 58 L 61 L 147 H (70-110) mg/dL Calcium (8.4-10.2) mg/dL 08/14/22 08/14/22 Range/Units 12:42 17:33 WBC (3.8-10.6) k/uL RBC (3.80-5.40) m/uL Hgb (11.4-16.0) gm/dL Hct (34.0-46.0) % MCHC (31.0-37.0) g/dL RDW (11.5-15.5) % Neutrophils # (1.3-7.7) k/uL Lymphocytes # (1.0-4.8) k/uL ABG pO2 (83-108) mmHg ABG O2 Saturation (94-97) % Potassium (3.5-5.1) mmol/L Chloride (98-107) mmol/L Carbon Dioxide (22-30) mmol/L BUN (7-17) mg/dL Creatinine (0.52-1.04) mg/dL Glucose (74-99) mg/dL POC Glucose (mg/dL) 166 H 167 H (70-110) mg/dL Calcium (8.4-10.2) mg/dL Microbiology - Last 24 Hours (Table) 08/09/22 14:19 Blood Culture - Preliminary Blood No Growth after 120 hours 08/08/22 13:00 Blood Culture - Final Blood No Growth after 144 hours 08/11/22 16:05 Blood Culture Gram Stain - Final Blood Blood Culture - Final Ange albicans 08/10/22 17:00 Blood Culture - Preliminary Blood No Growth after 72 hours Assessment and Plan (1) Sepsis Current Visit: Yes Status: Acute Code(s): A41.9 - SEPSIS, UNSPECIFIED ORGANISM SNOMED Code(s): 77315918 (2) Acquired hypothyroidism Current Visit: No Status: Acute Code(s): E03.9 - HYPOTHYROIDISM, UNSPECIFIED SNOMED Code(s): 615616538 (3) Acute exacerbation of chronic obstructive pulmonary disease Current Visit: Yes Status: Acute Code(s): J44.1 - CHRONIC OBSTRUCTIVE PULMONARY DISEASE W (ACUTE) EXACERBATION SNOMED Code(s): 549333600 (4) Acute on chronic diastolic (congestive) heart failure Current Visit: No Status: Acute Code(s): I50.33 - ACUTE ON CHRONIC DIASTOLIC (CONGESTIVE) HEART FAILURE SNOMED Code(s): 133885745 (5) Acute on chronic renal failure Current Visit: No Status: Acute Code(s): N17.9 - ACUTE KIDNEY FAILURE, UNSPECIFIED; N18.9 - CHRONIC KIDNEY DISEASE, UNSPECIFIED SNOMED Code(s): 571714918 (6) Acute pulmonary edema Current Visit: No Status: Acute Code(s): J81.0 - ACUTE PULMONARY EDEMA SNOMED Code(s): 73073132 (7) Acute renal failure Current Visit: No Status: Acute Code(s): N17.9 - ACUTE KIDNEY FAILURE, UNSPECIFIED SNOMED Code(s): 65903781 (8) Altered mental status Current Visit: No Status: Acute Code(s): R41.82 - ALTERED MENTAL STATUS, UNSPECIFIED SNOMED Code(s): 560551080 (9) Anemia Current Visit: Yes Status: Acute Code(s): D64.9 - ANEMIA, UNSPECIFIED SNOMED Code(s): 574050701 (10) CAD (coronary atherosclerotic disease) Current Visit: No Status: Acute Code(s): I25.10 - ATHSCL HEART DISEASE OF [place] CORONARY ARTERY W/O ANG PCTRS SNOMED Code(s): 881263130 (11) CHF (congestive heart failure) Current Visit: No Status: Acute Code(s): I50.9 - HEART FAILURE, UNSPECIFIED SNOMED Code(s): 17556102 (12) CKD (chronic kidney disease) stage 3, GFR 30-59 ml/min Current Visit: No Status: Acute Code(s): N18.30 - CHRONIC KIDNEY DISEASE, STAGE 3 UNSPECIFIED SNOMED Code(s): 021521791 (13) COPD exacerbation Current Visit: No Status: Acute Code(s): J44.1 - CHRONIC OBSTRUCTIVE PULMONARY DISEASE W (ACUTE) EXACERBATION SNOMED Code(s): 574468085 (14) COVID-19 Current Visit: No Status: Acute Code(s): U07.1 - COVID-19 SNOMED Code(s): 352379580 (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 Current Visit: No Status: Acute Code(s): M54.42 - LUMBAGO WITH SCIATICA, LEFT SIDE; M54.41 - LUMBAGO WITH SCIATICA, RIGHT SIDE; G89.29 - OTHER CHRONIC PAIN SNOMED Code(s): 970435506 Plan: Acute kidney injury secondary to urinary sepsis, slowly improving Hypotension secondary to sepsis, improved Acute respiratory failure ventilator dependent Left lower lobe pneumonia Urinary tract infection secondary to Pseudomonas and enterococcus Elevated liver function secondary to sepsis Aggressive supportive care being provided Prognosis guarded secondary to multiorgan failure ventilator dependence and acute kidney injury Time with Patient: Greater than 30
--- NOTE | 2022-08-14 20:35 | P.PN ---
Subjective Progress Note Date: 08/14/22 Principal diagnosis: Sepsis/septic shock Patient is a 87-year-old female with multiple comorbidities presented to the hospital with a syncopal episode weakness subsequently hypotension, sepsis requiring transfer to the ICU and intubation on the vent. On today's evaluation that is 08/14/2022, the patient is afebrile this morning, the patient is requiring less pressor support to maintain her blood pressure per the nursing staff, FiO2 is stable at 40 %, no significant purulent secretions through the ET or any diarrhea has been reported by the nursing staff, Objective - Vital Signs Vital signs: Vital Signs Temp 97.6 F 08/14/22 08:00 Pulse 121 H 08/14/22 11:00 Resp 28 H 08/14/22 11:00 BP 125/60 08/14/22 01:30 Pulse Ox 98 08/14/22 11:00 FiO2 40 08/14/22 08:00 Intake & Output 08/13/22 08/14/22 08/14/22 18:59 06:59 18:59 Intake Total 6225.220 0435.293 1041.859 Output Total 1805 1500 905 Balance 172.583 558.293 136.859 Weight 123.1 kg Intake: IV 1736 1476 546 .9 20 200 240 40 .9 3cc/hr 36 36 6 Anidulafungin 200 mg In 200 100 Sodium Chloride 0.9% 200 ml @ 84 mls/hr IVPB ONCE [facility] Rx#:[id number] Ceftazidime/Avibactam 0. 200 94 gm In Sodium Chloride 0.9% 100 ml @ 50 mls/hr IVPB Q24H [facility] Rx#: [id number] Potassium Chloride 20 meq 100 100 In Water For Injection 1 100ml.bag @ 50 mls/hr IVPB Q2H [facility] Rx#: [id number] Sodium Chloride 0.9% 1, 1000 1200 300 000 ml @ 100 mls/hr IV . Q10H [facility] Rx#:[id number] Intake, IV Titration 241.583 582.293 495.859 Amount Amiodarone 360 mg In 200 Dextrose 5% in Water 200 ml @ 1 MG/MIN 33.333 mls/ hr IV .Q6H [facility] Rx#: [id number] Amiodarone 450 mg In 247.783 Dextrose 5% in Water 250 ml @ 0.5 MG/MIN 16.667 mls/hr IV .Q15H [facility] Rx#: [id number] Calcium Gluconate in NaCl 100 2 gm In Saline 1 100ml. bag @ 50 mls/hr IVPB ONCE [facility] Rx#:[id number] Ceftolozane/Tazobactam 0. 100 75 gm In Sodium Chloride 0.9% 100 ml @ 100 mls/hr IV Q8HR [facility] Rx#:[id number] Norepinephrine 32 mg In 144.791 170.574 27.625 Sodium Chloride 0.9% 218 ml @ 0.5 MCG/KG/MIN 25. 547 mls/hr IV .Q9H48M [facility] Rx#:[id number] propofoL 1,000 mg In 96.792 163.936 68.234 Empty Bag 1 bag @ 15 MCG/ KG/MIN 9.81 mls/hr IV . [id number] [facility] Rx#:[id number] Output: Gastric Drainage 300 500 Urine 1505 1500 405 Other: Voiding Method Indwelling Catheter Indwelling Catheter Indwelling Catheter ABP, PAP, CO, CI - Last Documented Arterial Blood Pressure 109/45 - Exam GENERAL DESCRIPTION: An elderly female intubated on the vent RESPIRATORY SYSTEM: Unlabored breathing , decreased breath sounds at bases HEART: S1 S2 regular rate and rhythm , ABDOMEN: Soft , no tenderness EXTREMITIES: Lower extremity swelling no redness - Labs CBC & Chem 7: 08/14/22 04:17 08/14/22 17:30 Labs: Abnormal Lab Results - Last 24 Hours (Table) 08/14/22 08/14/22 08/14/22 Range/Units 04:17 04:17 05:47 WBC 11.2 H (3.8-10.6) k/uL RBC 2.99 L (3.80-5.40) m/uL Hgb 7.8 L (11.4-16.0) gm/dL Hct 25.6 L (34.0-46.0) % MCHC 30.4 L (31.0-37.0) g/dL RDW 16.4 H (11.5-15.5) % Neutrophils # 9.4 H (1.3-7.7) k/uL Lymphocytes # 0.9 L (1.0-4.8) k/uL ABG pO2 113 H (83-108) mmHg ABG O2 Saturation 98.0 H (94-97) % Potassium 3.0 L (3.5-5.1) mmol/L Chloride 116 H (98-107) mmol/L Carbon Dioxide 21 L (22-30) mmol/L BUN 67 H (7-17) mg/dL Creatinine 2.21 H (0.52-1.04) mg/dL Glucose 123 H (74-99) mg/dL POC Glucose (mg/dL) (70-110) mg/dL Calcium 5.8 L* (8.4-10.2) mg/dL 08/14/22 08/14/22 08/14/22 Range/Units 06:07 06:30 06:33 WBC (3.8-10.6) k/uL RBC (3.80-5.40) m/uL Hgb (11.4-16.0) gm/dL Hct (34.0-46.0) % MCHC (31.0-37.0) g/dL RDW (11.5-15.5) % Neutrophils # (1.3-7.7) k/uL Lymphocytes # (1.0-4.8) k/uL ABG pO2 (83-108) mmHg ABG O2 Saturation (94-97) % Potassium (3.5-5.1) mmol/L Chloride (98-107) mmol/L Carbon Dioxide (22-30) mmol/L BUN (7-17) mg/dL Creatinine (0.52-1.04) mg/dL Glucose (74-99) mg/dL POC Glucose (mg/dL) 58 L 61 L 147 H (70-110) mg/dL Calcium (8.4-10.2) mg/dL Microbiology - Last 24 Hours (Table) 08/11/22 16:05 Blood Culture Gram Stain - Final Blood Blood Culture - Final Ange albicans 08/10/22 17:00 Blood Culture - Preliminary Blood No Growth after 72 hours 08/09/22 14:19 Blood Culture - Preliminary Blood No Growth after 96 hours 08/08/22 13:00 Blood Culture - Preliminary Blood No Growth after 120 hours 08/08/22 13:30 Blood Culture Gram Stain - Preliminary Blood Blood Culture - Preliminary Anaerobic Gm Negative Bacilli 08/11/22 17:06 Gram Stain - Final Sputum Sputum Culture - Final Ange albicans Assessment and Plan (1) Sepsis Current Visit: Yes Status: Acute Code(s): A41.9 - SEPSIS, UNSPECIFIED ORGANISM SNOMED Code(s): 31822346 (2) UTI (urinary tract infection) Current Visit: No Status: Acute Code(s): N39.0 - URINARY TRACT INFECTION, SITE NOT SPECIFIED SNOMED Code(s): 49022985 Plan: 1patient with sepsis/septic shock in this patient is in the hospital with syncopal episode of weakness patient is now intubated on the vent and requiring high dose pressor support to maintain her blood pressure, the patient is growing gram-negative bacilli in the blood could be related to the urine as she is growing gram-negative as well as enterococcus in the urine versus related to the right lower lobe pneumonia and now there is suspicious for possible abdominal source 2patient with penicillin ALLERGY that would limit the number of antibiotic safe to use,patient with the borderline kidney function has risk of nephrotoxicity 3 urine culture did grew drug resistant Pseudomonas , blood culture is growing gram-negative which has been identified as anaerobic gram-negative bacilli, and repeat blood culture is growing yeast likely GI source, 4-patient to continue with Zerbexa, and Eraxis and monitor clinical course closely family at the bedside questions concerned were answered
[2022-08-14] MEDS: ENOXAPARIN 40 MG/0.4 ML SYRINGE SQ SCH (20:37)
[2022-08-14] MEDS: VASOPRESSIN 60 UNIT in SODIUM CHLORIDE 0.9% 150 ML IV SCH (23:51)
[2022-08-14 23:52] LABS: Glucose,Whole Blood 147 mg/dL (70-110)
[2022-08-15] MEDS: CEFTOLOZANE/TAZOBACTAM 0.75 GM in SODIUM CHLORIDE 0.9% 100 ML IV SCH ×3 (00:17→16:22)
[2022-08-15] MEDS: INSULIN ASPART (NovoLOG) 100 UNIT/ML VIAL SQ SCH ×5 (00:18→23:48)
[2022-08-15] MEDS: IPRATROPIUM-ALBUTEROL 3 ML NEB INHALATION SCH ×6 (00:43→23:56)
[2022-08-15 05:30] LABS: Glucose,Whole Blood 176 mg/dL (70-110)
[2022-08-15 05:33] LABS: ABG Base Excess -5.9 mmol/L; ABG HCO3 20 mmol/L (21-25); ABG Oxygen Saturation 97.7 % (94-97); ABG PCO2 39 mmHg (35-45); ABG PH 7.32 (7.35-7.45); ABG PO2 106 mmHg (83-108); ABG TCO2 21 mmol/L (19-24); Allen Test Performed? Yes
[2022-08-15 05:46] LABS: Potassium 3.8 mmol/L (3.5-5.1)
[2022-08-15 05:47] LABS: Albumin 1.7 g/dL (3.5-5.0); Magnesium 2.3 mg/dL (1.6-2.3); Phosphorus 4.3 mg/dL (2.5-4.5); Total Bilirubin 0.5 mg/dL (0.2-1.3)
[2022-08-15 05:49] LABS: Calcium 6.4 mg/dL (8.4-10.2)
[2022-08-15] MEDS: INSULIN DETEMIR (LEVEMIR) 100 UNIT/ML SYR SQ SCH (06:05)
[2022-08-15 06:11] LABS: Ionized Calcium 4.5 mg/dL (4.5-5.3)
[2022-08-15] MEDS ORDERED: POTASSIUM CHLORIDE 20 MEQ in WATER FOR INJECTION 1 100ML.BAG IVPB STA (06:12)
[2022-08-15] MEDS ORDERED: CALCIUM GLUCONATE IN NACL 1 GM in SALINE 1 100ML.BAG IVPB ONE (06:15)
[2022-08-15] MEDS: NOREPINEPHRINE 32 MG in SODIUM CHLORIDE 0.9% 218 ML IV SCH ×3 (06:53→19:30)
[2022-08-15] MEDS: FORMOTEROL FUMARATE 20 MCG/2 ML NEBU INHALATION SCH ×2 (07:46→19:57)
[2022-08-15] MEDS: BUDESONIDE 1 MG/2 ML NEBU INHALATION SCH ×2 (07:46→19:31)
--- NOTE | 2022-08-15 08:11 | XR ---
EXAMINATION TYPE: XR chest 1V portable DATE OF EXAM: 08/15/2022 COMPARISON: 08/14/2022 HISTORY: SOB, Follow Up FINDINGS: Indwelling tubes and catheters are unchanged. Persistent but improving scattered infiltrates. Stable appearance of the cardio-mediastinal structures at this time. Pleural effusion unchanged. IMPRESSION: 1. Slight interval improvement suggested. Clinical correlation and follow up until resolution is farrah mmended.
[2022-08-15] MEDS: LACTULOSE 20 GM/30 ML CUP PO SCH ×2 (08:36→20:18)
[2022-08-15] MEDS: CHLORHEXIDINE GLUCONATE 15 ML CUP MUCOUS MEM SCH ×2 (08:36→20:18)
[2022-08-15] MEDS: PANTOPRAZOLE 40 MG/10 ML VIAL IVP SCH (08:37)
[2022-08-15] MEDS: ANIDULAFUNGIN 100 MG in SODIUM CHLORIDE 0.9% 100 ML IVPB SCH (08:37)
[2022-08-15] MEDS: polyethylene glycoL 3350 17 GM POWD.PACK PO SCH ×2 (08:37→20:18)
[2022-08-15] MEDS: TAMSULOSIN 0.4 MG CAP.ER.24H PO SCH (08:37)
--- NOTE | 2022-08-15 09:36 | P.PN ---
Subjective Progress Note Date: 08/15/22 The patient is an 87-year-old female with multiple comorbid conditions who is currently admitted to the hospital with bowel obstruction and septicemia. Cardiology was consulted for a syncopal episode just prior to admission. Cardiology has signed off but then was again for A. fib with RVR. Dr Dorado re commended amiodarone drip for rate control. The patient has a poor prognosis as she is currently ventilated on vasopressors and is deemed a high risk surgical candidate. Nursing staff states amiodarone drip was discontinued yesterday and heart rates have been up to 140. Reviewed with Dr. Dorado he recommends resuming 0.5 mg IV continuously for rate control GENERAL: Ill-appearing, well-nourished and in no acute distress. Sedated on ventilator. NECK: Supple without JVD or thyromegaly. LUNGS: Breath sounds are coarse to auscultation bilaterally. Respiration equal and unlabored. Rhonchi throughout HEART: Irregular rate and rhythm without murmurs, rubs or gallops. S1 and S2 heard. EXTREMITIES: Normal range of motion, mild edema. No clubbing or cyanosis. TELEMETRY: Atrial fibrillation with rates in the 120s to 140s LABS: Sodium 145, potassium 3.8, BUN 61, creatinine 1.74, AST 106, ALT 14, ALP 311 IMPRESSION: A. fib with RVR, currently on amiodarone for rate control Septicemia Acute kidney injury, improving Elevated liver enzymes Acute respiratory failure on vasopressors GI bleeding with acute bowel obstruction PLAN: Continue IV amiodarone for rate control Poor prognosis at this time High risk surgical candidate No further recommendations from the cardiac standpoint I am dictating on behalf of Dr Joaquin Dorado's history/physical and assessment/plan. Objective - Vital Signs Vital signs: Vital Signs Temp 100.5 F H 08/15/22 08:00 Pulse 133 H 08/15/22 09:00 Resp 28 H 08/15/22 09:00 BP 125/60 08/14/22 01:30 Pulse Ox 97 08/15/22 09:00 FiO2 40 08/15/22 08:00 Intake & Output 08/14/22 08/15/22 08/15/22 18:59 06:59 18:59 Intake Total 1767.517 902.386 537.690 Output Total 1755 660 165 Balance 12.517 242.386 372.690 Weight 123.1 kg 125 kg Intake: IV 706 143 39 .9 10 170 110 30 .9 3cc/hr 36 33 9 Anidulafungin 200 mg In 100 Sodium Chloride 0.9% 200 ml @ 84 mls/hr IVPB ONCE ONE Rx#:[id number] Potassium Chloride 20 meq 100 In Water For Injection 1 100ml.bag @ 50 mls/hr IVPB Q2H [facility] Rx#: [id number] Sodium Chloride 0.9% 1, 300 000 ml @ 50 mls/hr IV . Q20H [facility] Rx#:[id number] Intake, IV Titration 1061.517 609.386 468.690 Amount Amiodarone 360 mg In 200 Dextrose 5% in Water 200 ml @ 1 MG/MIN 33.333 mls/ hr IV .Q6H [facility] Rx#: [id number] Amiodarone 450 mg In 97.502 Dextrose 5% in Water 250 ml @ 0.5 MG/MIN 16.667 mls/hr IV .Q15H [facility] Rx#: [id number] Calcium Gluconate in NaCl 100 1 gm In Saline 1 100ml. bag @ 100 mls/hr IVPB ONCE [facility] Rx#:[id number] Calcium Gluconate in NaCl 100 2 gm In Saline 1 100ml. bag @ 50 mls/hr IVPB ONCE [facility] Rx#:[id number] Ceftolozane/Tazobactam 0. 100 100 75 gm In Sodium Chloride 0.9% 100 ml @ 100 mls/hr IV Q8HR [facility] Rx#:[id number] Mvi, Adult No.4 with Vit 150 255 K 10 ml Trace (Conc-1Ml/ Dose) 1 ml Sodium Acetate 30 meq Potassium Chloride 20 meq Calcium Gluconate 1 gm In Amino Acid 5%-D15w 1,000 ml @ 30 mls/hr IV .Q24H [facility] Rx #:[id number] Norepinephrine 32 mg In 27.625 101.386 83.233 Sodium Chloride 0.9% 218 ml @ 0.5 MCG/KG/MIN 25. 547 mls/hr IV .Q9H48M [facility] Rx#:[id number] Potassium Chloride 20 meq 200 In Water For Injection 1 100ml.bag @ 50 mls/hr IVPB ONCE [facility] Rx#: [id number] Potassium Chloride 20 meq 100 In Water For Injection 1 100ml.bag @ 50 mls/hr IVPB ONCE [facility] Rx#: [id number] Vasopressin 60 unit In 153 Sodium Chloride 0.9% 150 ml @ 0.04 UNITS/MIN 6.12 mls/hr IV .Q24H [facility] Rx#: [id number] propofoL 1,000 mg In 186.390 100.000 85.457 Empty Bag 1 bag @ 15 MCG/ KG/MIN 9.81 mls/hr IV . [id number] [facility] Rx#:[id number] Tube Feeding 90 30 Other 60 Output: Gastric Drainage 500 Urine 1255 660 165 Other: Voiding Method Indwelling Catheter Indwelling Catheter Indwelling Catheter ABP, PAP, CO, CI - Last Documented Arterial Blood Pressure 103/45 - Labs CBC & Chem 7: 08/14/22 04:17 08/15/22 04:56 Labs: Abnormal Lab Results - Last 24 Hours (Table) 08/14/22 08/14/22 08/14/22 Range/Units 12:42 17:33 23:50 ABG pH (7.35-7.45) ABG HCO3 (21-25) mmol/L ABG O2 Saturation (94-97) % Chloride (98-107) mmol/L Carbon Dioxide (22-30) mmol/L BUN (7-17) mg/dL Creatinine (0.52-1.04) mg/dL Glucose (74-99) mg/dL POC Glucose (mg/dL) 166 H 167 H 147 H (70-110) mg/dL Calcium (8.4-10.2) mg/dL AST (14-36) U/L Alkaline Phosphatase (38-126) U/L Total Protein (6.3-8.2) g/dL Albumin (3.5-5.0) g/dL 08/15/22 08/15/22 08/15/22 Range/Units 04:56 05:29 05:30 ABG pH 7.32 L (7.35-7.45) ABG HCO3 20 L (21-25) mmol/L ABG O2 Saturation 97.7 H (94-97) % Chloride 117 H (98-107) mmol/L Carbon Dioxide 19 L (22-30) mmol/L BUN 61 H (7-17) mg/dL Creatinine 1.74 H (0.52-1.04) mg/dL Glucose 154 H (74-99) mg/dL POC Glucose (mg/dL) 176 H (70-110) mg/dL Calcium 6.4 L* (8.4-10.2) mg/dL AST 106 H (14-36) U/L Alkaline Phosphatase 311 H (38-126) U/L Total Protein 4.0 L (6.3-8.2) g/dL Albumin 1.7 L (3.5-5.0) g/dL Microbiology - Last 24 Hours (Table) 08/10/22 17:00 Blood Culture - Preliminary Blood No Growth after 96 hours 08/09/22 14:19 Blood Culture - Preliminary Blood No Growth after 120 hours 08/08/22 13:00 Blood Culture - Final Blood No Growth after 144 hours 08/11/22 16:05 Blood Culture Gram Stain - Final Blood Blood Culture - Final Ange albicans
--- NOTE | 2022-08-15 09:43 | P.PN ---
Subjective Progress Note Date: 08/15/22 cements, hypothyroidism, morbid obesity, multiple orthopedic surgeries, congestive heart failure, diabetes bella, hypertension, hyperlipidemia, osteoarthritis, obstructive sleep apnea on BiPAP, CVA/TIA, oxygen dependent and she was recently discharged from here to [facility] on the [place] and was just home for 3 days when she developed a syncopal episode yesterday. Her that may related to low blood sugar and try to give her oral issues which she vomited. She was brought into the emergency room yesterday. She is seen today in consultation. She remains in the emergency department. She is sitting up in bed. She is basically just moaning and groaning. Her family is at the bedside and provides him permission. She was initially placed on BiPAP. She is currently on 6 L high flow nasal cannula with O2 saturations in the 90s. Afebrile. Somewhat hypotensive. Blood culture reveals no growth to date. Urine culture pending. White count 19.1. Hemoglobin 8.0. Sodium 136. Potassium 4.6. Bicarb 17. BUN 66. Creatinine 2.27. Glucose 145. D-dimer 4.73. ProBNP 426. Troponin negative 1. CT angiogram ruled out pulmonary embolism. There is evidence of cardiomegaly with pulmonary vascular congestion. Scattered airspace opacities more consolidation in the right lung base. Rule out aspiration. Computed tomography scan of the abdomen and pelvis revealed extensive stool burden throughout the colon. 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 Today's chest x-ray shows Nasogastric tube in place. Mild cardiomegaly with bibasilar acute infiltrate and/or ate lectasis. She's been initiated on Symbicort, DuoNeb inhalations, antibiotics in the form of Levaquin. She is anticoagulated with Eliquis. The patient is seen today for per 2022 in follow-up in the intensive care unit. Just after midnight they called an a team on her due to her being obtun ded and hypotensive. She was on the sixth liter Ventimask and they do arterial blood gases that revealed a pO2 of 136, pCO2 31, pH 7.28. She was placed on BiPAP 12/5 and 50% and transferred into the intensive care unit. She received 3 A of sodium bicarb. She has D5W with 3 A of sodium bicarb at 75 ML's per hour. She is on norepinephrine at 27 mcg/m. Vasopressin at 0.03 units per minute. 0.9 normal saline at 20 mL per hour. She did undergo central line placement and arterial line placement. Follow-up blood gases reveal a pO2 of 295. PCO2 of 48. PH is 7.20 100% FiO2. White count 8.7. Hemoglobin 8.2. Platelets 311. Sodium 134. Potassium 6.3. Chloride 110. Bicarb 13. BUN 81. Creatinine 2.68. Glucose 134. Pro-calcitonin 11.0. She remains on bronchodilators. Continued on antibiotics in the form of Levaquin and cefepime. Her culture positive for group D enterococcus and gram-negative bacilli. Blood culture reveals no growth. The patient is seen today 08/11/2022 in follow-up in the intensive care unit. She did have progressive shortness of breath and hypoxemia and was subsequently intubated and placed on mechanical ventilator yesterday. He is currently on assist control mode with a rate of 20, tidal volume 400, FiO2 50% PEEP of 5. Morning blood gases revealed a PaO2 of 99, pCO2 45, pH 7.30 that was on 60% FiO2. She developed atrial fibrillation requiring amiodarone as well. She is hypotensive and requiring norepinephrine at 55 mcg/m, vasopressin at 0.04 units per minute. She remains on D5W with 3 A of bicarbonate 100 ML's per hour. 0.9 normal saline at 20 ML's per hour. She remains on antibiotics in the form of Levaquin, cefepime and daptomycin. Urine culture is positive for Enterococcus faecalis and Pseudomonas aeruginosa. Blood cultures showing no growth. Chest x-ray reveals no significant change. Stable appearance of the cardiomediastinal structures. Pleural effusion unchanged. No change in bibasilar opacities. White count 12.2. Hemoglobin 8.6. Platelets 349. Sodium 139. Potassium 5.1. Bicarb 22. BUN 79. Creatinine 2.74. Glucose 221. Lactic acid 3.2. Calcium 5.8. Cortisol 45. She is continued on DuoNeb inhalations, Pulmicort and Perforomist inhalations. The patient is seen today 08/12/2022 in follow-up in the intensive care unit. She remains intubated on the mechanical ventilator in assist control mode at a r ate of 28, tidal volume 400, FiO2 50% and PEEP of 5. Morning blood gases revealed a pO2 of 115, pCO2 40, pH 7.4. She is currently sedated on propofol at 25 mcg/kg/m. She is on normal saline at 100 mL an hour. She is still requiring pressors in the form of norepinephrine at 55 mcg/m and vasopressin at 0.04 units per minute. She remains on antibiotics in the form of Zerbaxa, Levaquin and daptomycin. Urine culture was positive for Enterococcus faecalis and Pseudomonas aeruginosa. Blood cultures have revealed no growth. Sputum culture pending. White count 6.8. Hemoglobin 8.4. Platelets 268. Sodium 140. Potassium 4.5. BUN 81. Creatinine 2.72. Glucose 162. Calcium 6.0. AST 166. ALT 21. Alk phos 385. Currently in a +3.1 L balance. She is continued on DuoNeb inhalations, Pulmicort and Perforomist inhalations. The patient is seen today 08/13/2022 in follow-up in the intensive care unit. He remains intubated and on mechanical ventilator currently and assist-control mode at a rate of 28, tidal volume 400, FiO2 40% and a PEEP of 5. Morning blood gases revealed a pO2 of 100, pCO2 is 88 and a pH of 7.35. She did have issues with atrial fibrillation and rapid ventricular response and was seen by cardiology earlier this morning who initiated amiodarone bolus and started a drip at 1 mg/m. She has normal saline at 100 MLS per hour. Propofol at 20 mcg/kg/m. Norepinephrine at 36 mcg/m and vasopressin at 0.04 units per minute. Tube feeds are currently on hold per surgery for possible ileus. Chest x-ray shows similar bibasilar airspace opacities. Urine culture positive for Enterococcus faecalis and pseudomonas aeruginosa. Blood culture preliminary positive for anaerobic gram-negative bacilli. Sputum culture hasn't for Ange. White count 9.6. Hemoglobin 8.2. Platelets 244. Sodium 141. Potassium 3.5. Bicarb 20. BUN 75. Creatinine 2.52. Glucose 159. Calcium 5.6. AST 162. ALT 19. Albumin 1.8. Currently in a +312 mL balance. She is currently on bronchodilators. Remains on Eraxis, Zerbaxa, daptomycin. Currently on Lovenox with pharmacy to dose. 08/14/2022, I'm seeing the patient for a follow-up. A very complicated case of a septic shock and 87-year-old female patient weighs currently on mechanical ventilator. The patient has had recurrent [place] tract infection in addition to multitude of comorbidities. She came with a septic shock and suspected bowel obstruction. In summary, the patient came with a septic shock and multisystem organ failure, currently intubated on a mechanical ventilator. This morning, she is on propofol running at 20 mcg/kg/m and she is calm and comfortable in bed at 6 with a mechanical ventilator. She'll assist-control mode of mechanical ventilation at the rate of 28 with a tidal volume of 400 and FiO2 40% with a PEEP of 5. Blood gas from today shows a pH of 7.37 with a pCO2 of 38 and pO2 113. Chest x-ray was also noted from today and there is adequate positioning of the orotracheal tube. There is also persistent bilateral pulmonary infiltrates and small effusions. There may be an underlying component of CHF. Airspace disease is seen in the left perihilar and right lower lobe area. Hemod ynamically, the patient is on pressors and norepinephrine is running at 0.14 mcg/kg/m and she is also on a physiologic dose of vasopressin. She remains active fibrillation and she does have a rapid ventricular response in her heart rate is around 120. She is on a broad-spectrum antibiotic coverage. She is currently on a combination of an axis and Zerbaxa and the cultures that were obtained earlier showed Pseudomonas that was multidrug resistance and Enterococcus faecalis in her urine, there was an anaerobic gram-negative bacillus in the blood, and there was also Ange and the blood. Hence, the antibiotic coverage was adjusted. In terms of her white cell count, she is currently running a white second of 11.2 with a hemoglobin of 7.8 and a platelet count of 229. Electrolytes are stable with a sodium of 144, potassium is at 3.0 with these to be replaced, BUN is at 67 with a creatinine of 2.21. The blood sugars at 147. The patient was taken off the amiodarone drip. The patient is on Levemir insulin 10 units and she is also receiving a sliding scale coverage. She is nothing by mouth. NG tube is in place. Output has been dark gastric material and output is minimal in the order of 500 mL per 24 hours, quite liquidy. Abdomen is soft, the patient was given several enemas without any successful bowel movement. Her previous echocardiogram from March 2022 as shown a moderate degree of aortic stenosis. Hylton cath is in place. Urine output is in order of 100 mL an hour and the patient is currently on IV fluids in the form of normal saline at rate of 50 mL an hour. She is afebrile. The patient also has a stage II wound in her coccyx. Fluid balance over the past 24 hours has been in the order of 730 mL. 08/15/2022, the patient remains intubated on a mechanical ventilator and the patient is being seen for a follow-up. Obviously, the patient is still septic, hypotensive, with evidence of multisystem organ failure, still on pressors, still intubated on a mechanical ventilator. As summary, over the past 24 hours, the patient was kept on mechanical ventilator, kept on antibiotics and pressors. This morning, she is sedated with propofol which is running at 30 mcg/kg/m. She is fairly sentences mechanical ventilator. She is on assist-control mode at a rate of 28, tidal volume of 100, FiO2 40% with a PEEP of 5. The peak airway pressure is 25. The blood gas shows a pH of 7.32 with a pCO2 of 39 and a pO2 of 106. Chest x-ray findings of essentially unchanged with some limited airspace disease in the lung bases bilaterally. Orotracheal tube remains in a good location. Hemodynamically, the patient is on IV fluids running at 10 mL an hour of normal saline. She has been in a positive fluid balance. She has been off pressors and the patient is on a physiologic dose of vasopressin and norepinephrine infusion was brought up to 0.2 mcg/kg/m and this is slightly higher compared to yesterday. Review blood cultures were sent yesterday. The patient is still in tachycardia with an underlying rhythm of atrial fibrillation. Her previous echocardiogram from March 2022 was essentially within normal limits. The antibiotic coverage is essentially the same and the patient remains on a combination of Eraxis and Zerbaxa. She is spiking low- grade fevers and her T-max is 100.5. In terms of her feeding, I was again his TPN specially with her systemic fungal anemia. We will give the patient rectal exam and there was no identifiable stool in the rectum. Flat film of the abdomen showed constipation and fecal stasis. Based on that, the patient was given lactulose. She was started on triple feeding again and currently she is on vital AF at the rate of 10 mL an hour. We are going to also start the patient on lactulose and gradually advance her diet. Hoping to have a bowel movement. She had a smear on a bowel movement yesterday. In terms of fluid balance, the patient has been in a positive fluid balance of 250 mL over the pas t 24 hours. The rest of the blood work shows a white cell count of 11.2 from yesterday. Repeat blood work is pending for now in terms of CBC. The sodium is at 145, potassium is at 3.8, serum bicarb is at 19, BUN 61 with a creatinine of 1.7. Total calcium levels at 6.4 and ionized calcium is normal at 4.5. AST is at 106, ALP is at 14, alkaline phosphatase is at 311, serum albumin is at 1.7 with a total protein of 4.0. She has a stage II coccygeal wounds. Condition remains critical. Family is at the bedside. Objective - Vital Signs Vital signs: Vital Signs Temp 100.5 F H 08/15/22 08:00 Pulse 133 H 08/15/22 09:00 Resp 28 H 08/15/22 09:00 BP 125/60 08/14/22 01:30 Pulse Ox 97 08/15/22 09:00 FiO2 40 08/15/22 08:00 Intake & Output 08/14/22 08/15/22 08/15/22 18:59 06:59 18:59 Intake Total 1767.517 902.386 537.690 Output Total 1755 660 165 Balance 12.517 242.386 372.690 Weight 123.1 kg 125 kg Intake: IV 706 143 39 .9 10 170 110 30 .9 3cc/hr 36 33 9 Anidulafungin 200 mg In 100 Sodium Chloride 0.9% 200 ml @ 84 mls/hr IVPB ONCE ONE Rx#:[id number] Potassium Chloride 20 meq 100 In Water For Injection 1 100ml.bag @ 50 mls/hr IVPB Q2H [facility] Rx#: [id number] Sodium Chloride 0.9% 1, 300 000 ml @ 50 mls/hr IV . Q20H [facility] Rx#:[id number] Intake, IV Titration 1061.517 609.386 468.690 Amount Amiodarone 360 mg In 200 Dextrose 5% in Water 200 ml @ 1 MG/MIN 33.333 mls/ hr IV .Q6H [facility] Rx#: [id number] Amiodarone 450 mg In 97.502 Dextrose 5% in Water 250 ml @ 0.5 MG/MIN 16.667 mls/hr IV .Q15H [facility] Rx#: [id number] Calcium Gluconate in NaCl 100 1 gm In Saline 1 100ml. bag @ 100 mls/hr IVPB ONCE ONE Rx#:[id number] Calcium Gluconate in NaCl 100 2 gm In Saline 1 100ml. bag @ 50 mls/hr IVPB ONCE ONE Rx#:[id number] Ceftolozane/Tazobactam 0. 100 100 75 gm In Sodium Chloride 0.9% 100 ml @ 100 mls/hr IV Q8HR [facility] Rx#:[id number] Mvi, Adult No.4 with Vit 150 255 K 10 ml Trace (Conc-1Ml/ Dose) 1 ml Sodium Acetate 30 meq Potassium Chloride 20 meq Calcium Gluconate 1 gm In Amino Acid 5%-D15w 1,000 ml @ 30 mls/hr IV .Q24H [facility] Rx #:[id number] Norepinephrine 32 mg In 27.625 101.386 83.233 Sodium Chloride 0.9% 218 ml @ 0.5 MCG/KG/MIN 25. 547 mls/hr IV .Q9H48M [facility] Rx#:[id number] Potassium Chloride 20 meq 200 In Water For Injection 1 100ml.bag @ 50 mls/hr IVPB ONCE [facility] Rx#: [id number] Potassium Chloride 20 meq 100 In Water For Injection 1 100ml.bag @ 50 mls/hr IVPB ONCE STA Rx#: [id number] Vasopressin 60 unit In 153 Sodium Chloride 0.9% 150 ml @ 0.04 UNITS/MIN 6.12 mls/hr IV .Q24H [facility] Rx#: [id number] propofoL 1,000 mg In 186.390 100.000 85.457 Empty Bag 1 bag @ 15 MCG/ KG/MIN 9.81 mls/hr IV . [id number] [facility] Rx#:[id number] Tube Feeding 90 30 Other 60 Output: Gastric Drainage 500 Urine 1255 660 165 Other: Voiding Method Indwelling Catheter Indwelling Catheter Indwelling Catheter ABP, PAP, CO, CI - Last Documented Arterial Blood Pressure 103/45 - Exam GENERAL EXAM: Intubated, sedated, 87-year-old morbidly obese female, on 40% FiO2 and a PEEP of 5. HEAD: Normocephalic. EYES: Sluggish reaction of pupils, equal size. NOSE: Nasogastric tube secured in place. Clear with pink turbinates. THROAT: Oral endotracheal tube in place. NECK: No masses, no JVD. CHEST: No chest wall deformity. LUNGS: Equal air entry with crackles in the bilateral bases. CVS: S1 and S2 normal with no audible murmur, irregular rhythm. ABDOMEN: No hepatosplenomegaly, normal bowel sounds, no guarding or rigidity. SPINE: No scoliosis or deformity SKIN: No rashes CENTRAL NERVOUS SYSTEM: Sedated, tone is normal in all 4 extremities. EXTREMITIES: There is 1-2+ peripheral edema. Changes of chronic venous stasis. No clubbing, no cyanosis. Peripheral pulses are intact. - Labs CBC & Chem 7: 08/14/22 04:17 08/15/22 04:56 Labs: Abnormal Lab Results - Last 24 Hours (Table) 08/14/22 08/14/22 08/14/22 Range/Units 12:42 17:33 23:50 ABG pH (7.35-7.45) ABG HCO3 (21-25) mmol/L ABG O2 Saturation (94-97) % Chloride (98-107) mmol/L Carbon Dioxide (22-30) mmol/L BUN (7-17) mg/dL Creatinine (0.52-1.04) mg/dL Glucose (74-99) mg/dL POC Glucose (mg/dL) 166 H 167 H 147 H (70-110) mg/dL Calcium (8.4-10.2) mg/dL AST (14-36) U/L Alkaline Phosphatase (38-126) U/L Total Protein (6.3-8.2) g/dL Albumin (3.5-5.0) g/dL 08/15/22 08/15/22 08/15/22 Range/Units 04:56 05:29 05:30 ABG pH 7.32 L (7.35-7.45) ABG HCO3 20 L (21-25) mmol/L ABG O2 Saturation 97.7 H (94-97) % Chloride 117 H (98-107) mmol/L Carbon Dioxide 19 L (22-30) mmol/L BUN 61 H (7-17) mg/dL Creatinine 1.74 H (0.52-1.04) mg/dL Glucose 154 H (74-99) mg/dL POC Glucose (mg/dL) 176 H (70-110) mg/dL Calcium 6.4 L* (8.4-10.2) mg/dL AST 106 H (14-36) U/L Alkaline Phosphatase 311 H (38-126) U/L Total Protein 4.0 L (6.3-8.2) g/dL Albumin 1.7 L (3.5-5.0) g/dL Microbiology - Last 24 Hours (Table) 08/10/22 17:00 Blood Culture - Preliminary Blood No Growth after 96 hours 08/09/22 14:19 Blood Culture - Preliminary Blood No Growth after 120 hours 08/08/22 13:00 Blood Culture - Final Blood No Growth after 144 hours 08/11/22 16:05 Blood Culture Gram Stain - Final Blood Blood Culture - Final Ange albicans Assessment and Plan Plan: Acute on chronic hypoxemic respiratory failure secondary to suspected diastolic congestive heart failure. The patient did deteriorate on 08/10/2022 requiring intubation mechanical ventilatory support. She has a component of CHF and multiple infiltrates bilaterally, as superinfection with a pneumonia cannot be completely ruled out. X-ray findings are the same. Blood gas is adequate for this morning. Septic shock secondary to above, now requiring pressor support in the form of norepinephrine and vasopressin, still hypotensive, still requiring pressors,, though was recommended antibiotics with a combination of Eraxis and Zerbaxa, s till having low-grade fever, repeat blood cultures were sent yesterday and is also still pending. Remains on the same antibiotic coverage urinary tract infection, sepsis. Urine culture positive for Enterococcus faecalis and Pseudomonas aeruginosa Systemic candidiasis with positive culture with Ange Anaerobic gram-negative bacteria in the blood Atrial fibrillation with a rapid ventricular response initiated on amiodarone drip is currently off amiodarone normal, Suspected ileus, tube feeds on hold, considered too high risk for surgical intervention per surgical services Previous history of urinary tract infections History of atrial fibrillation on Eliquis in the outpatient Acute on chronic kidney disease, creatinine peaked 2.77 and currently is improving slowly, creatinine is down to 1.74 Recent COVID-19 infection History of valvular heart disease with aortic valve stenosis and preserved LV function, based on an echocardiogram from March 2022 Chronic changes in the right lower lobe with small right pleural effusion Acute on chronic anemia my current hemoglobin 8.2 History of chronic obstructive pulmonary disease History of prior tobacco dependence History of diastolic congestive heart failure History of coronary disease with multiple stent placements History of CVA/TIA History of diabetes mellitus Morbid obesity Hypertension Hyperlipidemia Hypothyroidism Poor overall functional performance based on the above-mentioned multiple comorbidities with recent stay and ECF Plan: Ventilator support, no vent changes will be done for today Continue same antibiotic coverage IV fluids to KVO Producing adequate amount of urine output Monitor renal function Monitor blood pressure and gradually wean off the pressors if possible, norepinephrine first Restart amiodarone for rate control Keep propofol On therapeutic Lovenox per pharmacy dosing Repeat blood cultures were sent and that is also still pending Continue Eraxis/Zerbaxa Continue bronchodilators Flattening of the abdomen showed Constipation continue enteral feeding for nutritional support and gradually advanced Lactulose 30 mL twice a day Overall prognosis remains poor We will continue to follow and make further recommendations based on her clinical status Is extremely critical. Case was discussed with the daughter at the bedside. We'll continue to follow. Evaluation was done >30 min Time with Patient: Greater than 30
[2022-08-15 10:11] LABS: Anisocytosis Slight; Basophils # (A) 0.1 k/uL (0-0.2); Basophils % (A) 1 %; Eosinophils % (A) 0 %; HCT 25.4 % (34.0-46.0); HGB 7.7 gm/dL (11.4-16.0); Hypochromasia Marked; Lymphocytes % (A) 6 %; MCHC 30.2 g/dL (31.0-37.0); MCV 86.1 fL (80.0-100.0); Mean Platelet Volume 8.5; Monocytes # (A) 0.5 k/uL (0-1.0); Monocytes % (A) 3 %; Neutrophils # (A) 13.9 k/uL (1.3-7.7); Neutrophils % (A) 86 %; Platelet Count 232 k/uL (150-450); Poikilocytosis Slight; RBC 2.95 m/uL (3.80-5.40); RDW 16.7 % (11.5-15.5); WBC 16.2 k/uL (3.8-10.6)
[2022-08-15] MEDS ORDERED: bisacodyL 10 MG SUPP RECTAL STA (10:11)
[2022-08-15] MEDS: AMIODARONE 450 MG in DEXTROSE 5% IN WATER 250 ML IV SCH ×4 (10:55→21:52)
--- NOTE | 2022-08-15 11:02 | P.PN ---
Subjective Patient is seen for follow-up for acute kidney injury, mostly ATN currently slowly improving. Etiology is sepsis with fungemia and UTI with urine cultures growing Pseudomonas and enterococcus. Patient also has left lower lobe pneumonia. Patient remains on the vent. FiO2 is at 40%. Patient is also maintained on levo fed as well as vasopressin Urine output at 100-1 50 mL an hour. Serum creatinine at 1.7 from peak at 2.7. Potassium was 3.8 and status post replacement Started on trickle tube feeds Objective - Vital Signs Vital signs: Vital Signs Temp 100.5 F H 08/15/22 08:00 Pulse 133 H 08/15/22 09:00 Resp 28 H 08/15/22 09:00 BP 125/60 08/14/22 01:30 Pulse Ox 97 08/15/22 09:00 FiO2 40 08/15/22 10:53 Intake & Output 08/14/22 08/15/22 08/15/22 18:59 06:59 18:59 Intake Total 1767.517 902.386 537.690 Output Total 1755 660 165 Balance 12.517 242.386 372.690 Weight 123.1 kg 125 kg Intake: IV 706 143 39 .9 10 170 110 30 .9 3cc/hr 36 33 9 Anidulafungin 200 mg In 100 Sodium Chloride 0.9% 200 ml @ 84 mls/hr IVPB ONCE [facility] Rx#:[id number] Potassium Chloride 20 meq 100 In Water For Injection 1 100ml.bag @ 50 mls/hr IVPB Q2H [facility] Rx#: [id number] Sodium Chloride 0.9% 1, 300 000 ml @ 50 mls/hr IV . Q20H [facility] Rx#:[id number] Intake, IV Titration 1061.517 609.386 468.690 Amount Amiodarone 360 mg In 200 Dextrose 5% in Water 200 ml @ 1 MG/MIN 33.333 mls/ hr IV .Q6H [facility] Rx#: [id number] Amiodarone 450 mg In 97.502 Dextrose 5% in Water 250 ml @ 0.5 MG/MIN 16.667 mls/hr IV .Q15H [facility] Rx#: [id number] Calcium Gluconate in NaCl 100 1 gm In Saline 1 100ml. bag @ 100 mls/hr IVPB ONCE [facility] Rx#:[id number] Calcium Gluconate in NaCl 100 2 gm In Saline 1 100ml. bag @ 50 mls/hr IVPB ONCE [facility] Rx#:[id number] Ceftolozane/Tazobactam 0. 100 100 75 gm In Sodium Chloride 0.9% 100 ml @ 100 mls/hr IV Q8HR [facility] Rx#:[id number] Mvi, Adult No.4 with Vit 150 255 K 10 ml Trace (Conc-1Ml/ Dose) 1 ml Sodium Acetate 30 meq Potassium Chloride 20 meq Calcium Gluconate 1 gm In Amino Acid 5%-D15w 1,000 ml @ 30 mls/hr IV .Q24H [facility] Rx #:[id number] Norepinephrine 32 mg In 27.625 101.386 83.233 Sodium Chloride 0.9% 218 ml @ 0.5 MCG/KG/MIN 25. 547 mls/hr IV .Q9H48M [facility] Rx#:[id number] Potassium Chloride 20 meq 200 In Water For Injection 1 100ml.bag @ 50 mls/hr IVPB ONCE [facility] Rx#: [id number] Potassium Chloride 20 meq 100 In Water For Injection 1 100ml.bag @ 50 mls/hr IVPB ONCE [facility] Rx#: [id number] Vasopressin 60 unit In 153 Sodium Chloride 0.9% 150 ml @ 0.04 UNITS/MIN 6.12 mls/hr IV .Q24H [facility] Rx#: [id number] propofoL 1,000 mg In 186.390 100.000 85.457 Empty Bag 1 bag @ 15 MCG/ KG/MIN 9.81 mls/hr IV . [id number] [facility] Rx#:[id number] Tube Feeding 90 30 Other 60 Output: Gastric Drainage 500 Urine 1255 660 165 Other: Voiding Method Indwelling Catheter Indwelling Catheter Indwelling Catheter ABP, PAP, CO, CI - Last Documented Arterial Blood Pressure 103/45 - Exam Patient is sedated and on the vent. 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 cannot be performed - Labs CBC & Chem 7: 08/15/22 08:15 08/15/22 04:56 Labs: Abnormal Lab Results - Last 24 Hours (Table) 08/14/22 08/14/22 08/14/22 Range/Units 12:42 17:33 23:50 WBC (3.8-10.6) k/uL RBC (3.80-5.40) m/uL Hgb (11.4-16.0) gm/dL Hct (34.0-46.0) % MCHC (31.0-37.0) g/dL RDW (11.5-15.5) % Neutrophils # (1.3-7.7) k/uL ABG pH (7.35-7.45) ABG HCO3 (21-25) mmol/L ABG O2 Saturation (94-97) % Chloride (98-107) mmol/L Carbon Dioxide (22-30) mmol/L BUN (7-17) mg/dL Creatinine (0.52-1.04) mg/dL Glucose (74-99) mg/dL POC Glucose (mg/dL) 166 H 167 H 147 H (70-110) mg/dL Calcium (8.4-10.2) mg/dL AST (14-36) U/L Alkaline Phosphatase (38-126) U/L Total Protein (6.3-8.2) g/dL Albumin (3.5-5.0) g/dL 08/15/22 08/15/22 08/15/22 Range/Units 04:56 05:29 05:30 WBC (3.8-10.6) k/uL RBC (3.80-5.40) m/uL Hgb (11.4-16.0) gm/dL Hct (34.0-46.0) % MCHC (31.0-37.0) g/dL RDW (11.5-15.5) % Neutrophils # (1.3-7.7) k/uL ABG pH 7.32 L (7.35-7.45) ABG HCO3 20 L (21-25) mmol/L ABG O2 Saturation 97.7 H (94-97) % Chloride 117 H (98-107) mmol/L Carbon Dioxide 19 L (22-30) mmol/L BUN 61 H (7-17) mg/dL Creatinine 1.74 H (0.52-1.04) mg/dL Glucose 154 H (74-99) mg/dL POC Glucose (mg/dL) 176 H (70-110) mg/dL Calcium 6.4 L* (8.4-10.2) mg/dL AST 106 H (14-36) U/L Alkaline Phosphatase 311 H (38-126) U/L Total Protein 4.0 L (6.3-8.2) g/dL Albumin 1.7 L (3.5-5.0) g/dL 08/15/22 Range/Units 08:15 WBC 16.2 H (3.8-10.6) k/uL RBC 2.95 L (3.80-5.40) m/uL Hgb 7.7 L (11.4-16.0) gm/dL Hct 25.4 L (34.0-46.0) % MCHC 30.2 L (31.0-37.0) g/dL RDW 16.7 H (11.5-15.5) % Neutrophils # 13.9 H (1.3-7.7) k/uL ABG pH (7.35-7.45) ABG HCO3 (21-25) mmol/L ABG O2 Saturation (94-97) % Chloride (98-107) mmol/L Carbon Dioxide (22-30) mmol/L BUN (7-17) mg/dL Creatinine (0.52-1.04) mg/dL Glucose (74-99) mg/dL POC Glucose (mg/dL) (70-110) mg/dL Calcium (8.4-10.2) mg/dL AST (14-36) U/L Alkaline Phosphatase (38-126) U/L Total Protein (6.3-8.2) g/dL Albumin (3.5-5.0) g/dL Microbiology - Last 24 Hours (Table) 08/10/22 17:00 Blood Culture - Preliminary Blood No Growth after 96 hours 08/09/22 14:19 Blood Culture - Preliminary Blood No Growth after 120 hours 08/08/22 13:00 Blood Culture - Final Blood No Growth after 144 hours 08/11/22 16:05 Blood Culture Gram Stain - Final Blood Blood Culture - Final Ange albicans Assessment and Plan Assessment: 1. Acute kidney injury secondary to prerenal from fungemia and urine tract infection with Pseudomonas and enterococcus. Creatinine is improved this morning from 2.72 mg to 2.2. Admission creatinine was 1.5 and peak was 2.77 2. Hypotension secondary to sepsis, on levo fed and vasopressin blood 3. Ventilator dependent respiratory failure, stable 40% FiO2 3. Left lower lobe pneumonia 4. UTI with Pseudomonas and enterococcus. 5. Hypocalcemia secondary to acute kidney injury. Rule out nutritional vitamin D deficiency 6. Elevated liver function tests secondary to sepsis Plan: Continue to wean down pressors Continue off of IV fluids Replace potassium Repeat labs in a.m. Check 25-hydroxy vitamin D level
[2022-08-15 11:17] LABS: Glucose,Whole Blood 73 mg/dL (70-110)
[2022-08-15 11:49] LABS: Glucose,Whole Blood 129 mg/dL (70-110)
--- NOTE | 2022-08-15 12:04 | P.PN ---
Subjective Progress Note Date: 08/15/22 CHIEF COMPLAINT: Abdominal pain HISTORY OF PRESENT ILLNESS: Patient remains in the ICU intubated and on m echanical ventilation. She is requiring Levophed and vasopressin. Patient continues to have low-grade temps. Patient had minimal output through the NG tube yesterday. She has been started on trickle feeds through the NG tube. Patient had smears of bowel movements and a liquidy stool yesterday after suppository. Abdominal x-ray had should showed retained fecal debris correlate for constipation. Patient does have positive blood culture with Ange albicans and positive sputum culture with Ange albicans. She remains tachycardia. WBC is up from 11.2-16.2 hemoglobin 7.7 platelets 232 sodium 145 potassium 3.8 creatinine 1.74 chest x-ray slight interval improvement suggested. PHYSICAL EXAM: VITAL SIGNS: Reviewed GENERAL: no acute distress. Head is atraumatic, normocephalic. No nasal drainage. NECK: Supple without lymphadenopathy. CHEST: Non-labored respirations and equal bilateral excursions. CARDIOVASCULAR: Palpable 2+ radial pulses. ABDOMEN: Soft. distended. MUSCULOSKELETAL: No clubbing or cyanosis. ASSESSMENT: 1. Sigmoid volvulus 2. Constipation 3. UTI with sepsis 4. Syncopal episode 5. Lactic acidosis 6. Acute on chronic kidney disease 7. History of atrial fibrillation 8. History of CVA 9. Hypokalemia 10. Hypocalcemia PLAN: -No surgical intervention planned -Patient is considered high risk for surgical intervention -Continue conservative management -Patient started on trickle feeds. Tube feedings through NG tube can be titrated per dietitian -Dulcolax suppository ordered for constipation -Continue supportive care Physician Postal Carrier note has been reviewed by physician. Signing provider agrees with the documented findings, assessment, and plan of care. Objective - Vital Signs Vital signs: Vital Signs Temp 100.5 F H 08/15/22 08:00 Pulse 133 H 08/15/22 09:00 Resp 28 H 08/15/22 09:00 BP 125/60 08/14/22 01:30 Pulse Ox 97 08/15/22 09:00 FiO2 40 08/15/22 08:00 Intake & Output 08/14/22 08/15/22 08/15/22 18:59 06:59 18:59 Intake Total 1767.517 902.386 537.690 Output Total 1755 660 165 Balance 12.517 242.386 372.690 Weight 123.1 kg 125 kg Intake: IV 706 143 39 .9 10 170 110 30 .9 3cc/hr 36 33 9 Anidulafungin 200 mg In 100 Sodium Chloride 0.9% 200 ml @ 84 mls/hr IVPB ONCE [facility] Rx#:[id number] Potassium Chloride 20 meq 100 In Water For Injection 1 100ml.bag @ 50 mls/hr IVPB Q2H [facility] Rx#: [id number] Sodium Chloride 0.9% 1, 300 000 ml @ 50 mls/hr IV . Q20H [facility] Rx#:[id number] Intake, IV Titration 1061.517 609.386 468.690 Amount Amiodarone 360 mg In 200 Dextrose 5% in Water 200 ml @ 1 MG/MIN 33.333 mls/ hr IV .Q6H [facility] Rx#: [id number] Amiodarone 450 mg In 97.502 Dextrose 5% in Water 250 ml @ 0.5 MG/MIN 16.667 mls/hr IV .Q15H [facility] Rx#: [id number] Calcium Gluconate in NaCl 100 1 gm In Saline 1 100ml. bag @ 100 mls/hr IVPB ONCE [facility] Rx#:[id number] Calcium Gluconate in NaCl 100 2 gm In Saline 1 100ml. bag @ 50 mls/hr IVPB ONCE [facility] Rx#:[id number] Ceftolozane/Tazobactam 0. 100 100 75 gm In Sodium Chloride 0.9% 100 ml @ 100 mls/hr IV Q8HR [facility] Rx#:[id number] Mvi, Adult No.4 with Vit 150 255 K 10 ml Trace (Conc-1Ml/ Dose) 1 ml Sodium Acetate 30 meq Potassium Chloride 20 meq Calcium Gluconate 1 gm In Amino Acid 5%-D15w 1,000 ml @ 30 mls/hr IV .Q24H [facility] Rx #:[id number] Norepinephrine 32 mg In 27.625 101.386 83.233 Sodium Chloride 0.9% 218 ml @ 0.5 MCG/KG/MIN 25. 547 mls/hr IV .Q9H48M [facility] Rx#:[id number] Potassium Chloride 20 meq 200 In Water For Injection 1 100ml.bag @ 50 mls/hr IVPB ONCE [facility] Rx#: [id number] Potassium Chloride 20 meq 100 In Water For Injection 1 100ml.bag @ 50 mls/hr IVPB ONCE [facility] Rx#: [id number] Vasopressin 60 unit In 153 Sodium Chloride 0.9% 150 ml @ 0.04 UNITS/MIN 6.12 mls/hr IV .Q24H [facility] Rx#: [id number] propofoL 1,000 mg In 186.390 100.000 85.457 Empty Bag 1 bag @ 15 MCG/ KG/MIN 9.81 mls/hr IV . [id number] [facility] Rx#:[id number] Tube Feeding 90 30 Other 60 Output: Gastric Drainage 500 Urine 1255 660 165 Other: Voiding Method Indwelling Catheter Indwelling Catheter Indwelling Catheter ABP, PAP, CO, CI - Last Documented Arterial Blood Pressure 103/45 - Labs CBC & Chem 7: 08/15/22 08:15 08/15/22 04:56 Labs: Abnormal Lab Results - Last 24 Hours (Table) 08/14/22 08/14/22 08/14/22 Range/Units 12:42 17:33 23:50 WBC (3.8-10.6) k/uL RBC (3.80-5.40) m/uL Hgb (11.4-16.0) gm/dL Hct (34.0-46.0) % MCHC (31.0-37.0) g/dL RDW (11.5-15.5) % Neutrophils # (1.3-7.7) k/uL ABG pH (7.35-7.45) ABG HCO3 (21-25) mmol/L ABG O2 Saturation (94-97) % Chloride (98-107) mmol/L Carbon Dioxide (22-30) mmol/L BUN (7-17) mg/dL Creatinine (0.52-1.04) mg/dL Glucose (74-99) mg/dL POC Glucose (mg/dL) 166 H 167 H 147 H (70-110) mg/dL Calcium (8.4-10.2) mg/dL AST (14-36) U/L Alkaline Phosphatase (38-126) U/L Total Protein (6.3-8.2) g/dL Albumin (3.5-5.0) g/dL 08/15/22 08/15/22 08/15/22 Range/Units 04:56 05:29 05:30 WBC (3.8-10.6) k/uL RBC (3.80-5.40) m/uL Hgb (11.4-16.0) gm/dL Hct (34.0-46.0) % MCHC (31.0-37.0) g/dL RDW (11.5-15.5) % Neutrophils # (1.3-7.7) k/uL ABG pH 7.32 L (7.35-7.45) ABG HCO3 20 L (21-25) mmol/L ABG O2 Saturation 97.7 H (94-97) % Chloride 117 H (98-107) mmol/L Carbon Dioxide 19 L (22-30) mmol/L BUN 61 H (7-17) mg/dL Creatinine 1.74 H (0.52-1.04) mg/dL Glucose 154 H (74-99) mg/dL POC Glucose (mg/dL) 176 H (70-110) mg/dL Calcium 6.4 L* (8.4-10.2) mg/dL AST 106 H (14-36) U/L Alkaline Phosphatase 311 H (38-126) U/L Total Protein 4.0 L (6.3-8.2) g/dL Albumin 1.7 L (3.5-5.0) g/dL 08/15/22 Range/Units 08:15 WBC 16.2 H (3.8-10.6) k/uL RBC 2.95 L (3.80-5.40) m/uL Hgb 7.7 L (11.4-16.0) gm/dL Hct 25.4 L (34.0-46.0) % MCHC 30.2 L (31.0-37.0) g/dL RDW 16.7 H (11.5-15.5) % Neutrophils # 13.9 H (1.3-7.7) k/uL ABG pH (7.35-7.45) ABG HCO3 (21-25) mmol/L ABG O2 Saturation (94-97) % Chloride (98-107) mmol/L Carbon Dioxide (22-30) mmol/L BUN (7-17) mg/dL Creatinine (0.52-1.04) mg/dL Glucose (74-99) mg/dL POC Glucose (mg/dL) (70-110) mg/dL Calcium (8.4-10.2) mg/dL AST (14-36) U/L Alkaline Phosphatase (38-126) U/L Total Protein (6.3-8.2) g/dL Albumin (3.5-5.0) g/dL Microbiology - Last 24 Hours (Table) 08/10/22 17:00 Blood Culture - Preliminary Blood No Growth after 96 hours 08/09/22 14:19 Blood Culture - Preliminary Blood No Growth after 120 hours 08/08/22 13:00 Blood Culture - Final Blood No Growth after 144 hours 08/11/22 16:05 Blood Culture Gram Stain - Final Blood Blood Culture - Final Ange albicans
[2022-08-15] MEDS ORDERED: 1: MVI, ADULT NO.4 WITH VIT K 10 ML, TRACE (CONC-1ML/DOSE) 1 ML, SODIUM ACETATE 30 MEQ, IV SCH ×6 (14:00)
--- NOTE | 2022-08-15 15:39 | P.PN ---
Subjective Progress Note Date: 08/15/22 This is a 87-year-old morbidly, obese, female, well known to me. She has multiple medical problems including a chronic renal failure, chronic systolic congestive heart failure. I last seen her on August 05, 2022 at [facility] on the [facility] [place]. She was doing fairly well at that time. She was there for rehabilitation. This was her third F visit in the past Several months.Her only complaint with some constipation. She not stool since August 03. She has been hospitalized in the past year nine times including this current visit.She was discharged from [facility] on August 06, 2022. On August 08, 2022 she presented the emergency room via EMS. Her indicates that she went to the bathroom, and, he had found her slumped over in her wheelchair, blue in the face and not breathing well. He had tried to feed her and given her some insulin. SheHer only complaint with some constipation. After patients admission, just after midnight and 18 was called on her and she is going to be attending hypotensive. Choose placement of any mask and BiPAP. Eventually she required intubation. And her about August 11. She's currently in abated and sedated.How to raise tachycardic blood pressure is stable with pressers.She is on aAnidulafungin For positive sputum and blood cultures of yeast. She remains on sodium chloride and potassium chloride IV and is now on tube feeds at 10 ml/hr. Labs for today show a leukocytosis at 16.2 with a left shift 13.9 neutrophils hemoglobin is 7.7. ABGs from this morning show page 7.32 PCO2 of 39 PO and HCO3 a 20.Chemistry is show the normal electrolytes decrease carbon dioxide and 19 GFR is 26. Calcium 6.4. She is receiving a amino acids and D5 through the IV. She has Dulcolax per rectum ordered. She has sheathing calcium gluconate. She remains Zerbaxa for antibiotic coverage.She is receiving Lovenox for anticoagulation and DVT prophylaxis, Levemir insulin along with scale, Levophed for blood pressure control, potassium chloride for hypokalemia. She's being followed by critical care, Nephrology,surgery, Infectious disease and cardiology Objective - Vital Signs Vital signs: Vital Signs Temp 98.2 F 08/15/22 12:00 Pulse 116 H 08/15/22 14:00 Resp 28 H 02/14/23 14:00 BP 125/60 08/14/22 01:30 Pulse Ox 98 08/15/22 14:00 FiO2 40 08/15/22 12:00 Intake & Output 08/14/22 08/15/22 08/15/22 18:59 06:59 18:59 Intake Total 1767.517 902.386 673.242 Output Total 1755 660 490 Balance 12.517 242.386 183.242 Weight 123.1 kg 125 kg 125 kg Intake: IV 706 143 117 .9 10 170 110 90 .9 3cc/hr 36 33 27 Anidulafungin 200 mg In 100 Sodium Chloride 0.9% 200 ml @ 84 mls/hr IVPB ONCE [facility] Rx#:[id number] Potassium Chloride 20 meq 100 In Water For Injection 1 100ml.bag @ 50 mls/hr IVPB Q2H [facility] Rx#: [id number] Sodium Chloride 0.9% 1, 300 000 ml @ 50 mls/hr IV . Q20H [facility] Rx#:[id number] Intake, IV Titration 1061.517 609.386 526.242 Amount Amiodarone 360 mg In 200 Dextrose 5% in Water 200 ml @ 1 MG/MIN 33.333 mls/ hr IV .Q6H [facility] Rx#: [id number] Amiodarone 450 mg In 97.502 Dextrose 5% in Water 250 ml @ 0.5 MG/MIN 16.667 mls/hr IV .Q15H [facility] Rx#: [id number] Calcium Gluconate in NaCl 100 1 gm In Saline 1 100ml. bag @ 100 mls/hr IVPB ONCE [facility] Rx#:[id number] Calcium Gluconate in NaCl 100 2 gm In Saline 1 100ml. bag @ 50 mls/hr IVPB ONCE [facility] Rx#:[id number] Ceftolozane/Tazobactam 0. 100 100 75 gm In Sodium Chloride 0.9% 100 ml @ 100 mls/hr IV Q8HR [facility] Rx#:[id number] Mvi, Adult No.4 with Vit 150 255 K 10 ml Trace (Conc-1Ml/ Dose) 1 ml Sodium Acetate 30 meq Potassium Chloride 20 meq Calcium Gluconate 1 gm In Amino Acid 5%-D15w 1,000 ml @ 30 mls/hr IV .Q24H [facility] Rx #:[id number] Norepinephrine 32 mg In 27.625 101.386 83.233 Sodium Chloride 0.9% 218 ml @ 0.5 MCG/KG/MIN 25. 547 mls/hr IV .Q9H48M [facility] Rx#:[id number] Potassium Chloride 20 meq 200 In Water For Injection 1 100ml.bag @ 50 mls/hr IVPB ONCE [facility] Rx#: [id number] Potassium Chloride 20 meq 100 In Water For Injection 1 100ml.bag @ 50 mls/hr IVPB ONCE [facility] Rx#: [id number] Vasopressin 60 unit In 153 Sodium Chloride 0.9% 150 ml @ 0.04 UNITS/MIN 6.12 mls/hr IV .Q24H [facility] Rx#: [id number] propofoL 1,000 mg In 186.390 100.000 143.009 Empty Bag 1 bag @ 15 MCG/ KG/MIN 9.81 mls/hr IV . [id number] [facility] Rx#:[id number] Tube Feeding 90 30 Other 60 Output: Gastric Drainage 500 Urine 1255 660 490 Other: Voiding Method Indwelling Catheter Indwelling Catheter Indwelling Catheter ABP, PAP, CO, CI - Last Documented Arterial Blood Pressure 115/49 - Exam General: Patient is intubated/sedated in ICU Neck: [No adenopathy.] Cardiac: [Heart regularly irregular. S1/S2 were equal, there is a 1/6 systolic murmur at the right, and left sternal border Lungs: Diminished breath sounds bilaterally scattered rhonchi noted mechanically ventilated Abdomen: [No mass. No organomegaly. Bowel sounds presnt and normoactive in all 4 quadrants. This patient is morbidly obese, mild distention Extremes: [2+ edema bilateral upper and lower extremes no cyanosis no claudication normal pulses Heals up boot are in place Skin:deferred Neurologic: Patient is sedated on a ventilatory support Lymphatic: [No adenopathy.] - Labs CBC & Chem 7: 08/15/22 08:15 08/15/22 04:56 Labs: Abnormal Lab Results - Last 24 Hours (Table) 08/14/22 08/14/22 08/15/22 Range/Units 17:33 23:50 04:56 WBC (3.8-10.6) k/uL RBC (3.80-5.40) m/uL Hgb (11.4-16.0) gm/dL Hct (34.0-46.0) % MCHC (31.0-37.0) g/dL RDW (11.5-15.5) % Neutrophils # (1.3-7.7) k/uL ABG pH (7.35-7.45) ABG HCO3 (21-25) mmol/L ABG O2 Saturation (94-97) % Chloride 117 H (98-107) mmol/L Carbon Dioxide 19 L (22-30) mmol/L BUN 61 H (7-17) mg/dL Creatinine 1.74 H (0.52-1.04) mg/dL Glucose 154 H (74-99) mg/dL POC Glucose (mg/dL) 167 H 147 H (70-110) mg/dL Calcium 6.4 L* (8.4-10.2) mg/dL AST 106 H (14-36) U/L Alkaline Phosphatase 311 H (38-126) U/L Total Protein 4.0 L (6.3-8.2) g/dL Albumin 1.7 L (3.5-5.0) g/dL 08/15/22 08/15/22 08/15/22 Range/Units 05:29 05:30 08:15 WBC 16.2 H (3.8-10.6) k/uL RBC 2.95 L (3.80-5.40) m/uL Hgb 7.7 L (11.4-16.0) gm/dL Hct 25.4 L (34.0-46.0) % MCHC 30.2 L (31.0-37.0) g/dL RDW 16.7 H (11.5-15.5) % Neutrophils # 13.9 H (1.3-7.7) k/uL ABG pH 7.32 L (7.35-7.45) ABG HCO3 20 L (21-25) mmol/L ABG O2 Saturation 97.7 H (94-97) % Chloride (98-107) mmol/L Carbon Dioxide (22-30) mmol/L BUN (7-17) mg/dL Creatinine (0.52-1.04) mg/dL Glucose (74-99) mg/dL POC Glucose (mg/dL) 176 H (70-110) mg/dL Calcium (8.4-10.2) mg/dL AST (14-36) U/L Alkaline Phosphatase (38-126) U/L Total Protein (6.3-8.2) g/dL Albumin (3.5-5.0) g/dL 08/15/22 Range/Units 11:47 WBC (3.8-10.6) k/uL RBC (3.80-5.40) m/uL Hgb (11.4-16.0) gm/dL Hct (34.0-46.0) % MCHC (31.0-37.0) g/dL RDW (11.5-15.5) % Neutrophils # (1.3-7.7) k/uL ABG pH (7.35-7.45) ABG HCO3 (21-25) mmol/L ABG O2 Saturation (94-97) % Chloride (98-107) mmol/L Carbon Dioxide (22-30) mmol/L BUN (7-17) mg/dL Creatinine (0.52-1.04) mg/dL Glucose (74-99) mg/dL POC Glucose (mg/dL) 129 H (70-110) mg/dL Calcium (8.4-10.2) mg/dL AST (14-36) U/L Alkaline Phosphatase (38-126) U/L Total Protein (6.3-8.2) g/dL Albumin (3.5-5.0) g/dL Microbiology - Last 24 Hours (Table) 08/08/22 13:30 Blood Culture Gram Stain - Preliminary Blood Blood Culture - Preliminary Anaerobic Gm Negative Bacilli 08/10/22 17:00 Blood Culture - Preliminary Blood No Growth after 96 hours 08/09/22 14:19 Blood Culture - Preliminary Blood No Growth after 120 hours 08/08/22 13:00 Blood Culture - Final Blood No Growth after 144 hours 08/11/22 16:05 Blood Culture Gram Stain - Final Blood Blood Culture - Final Ange albicans Assessment and Plan (1) Hypokalemia Current Visit: Yes Status: Acute Code(s): E87.6 - HYPOKALEMIA SNOMED Code(s): 93345384 (2) Hypocalcemia Current Visit: Yes Status: Acute Code(s): E83.51 - HYPOCALCEMIA SNOMED Code(s): 5478646 (3) Acute exacerbation of chronic obstructive pulmonary disease Current Visit: Yes Status: Acute Code(s): J44.1 - CHRONIC OBSTRUCTIVE PULMONARY DISEASE W (ACUTE) EXACERBATION SNOMED Code(s): 864759529 (4) Pneumonia Current Visit: Yes Status: Acute Code(s): J18.9 - PNEUMONIA, UNSPECIFIED ORGANISM SNOMED Code(s): 260206643 (5) Sepsis Current Visit: Yes Status: Acute Code(s): A41.9 - SEPSIS, UNSPECIFIED ORGANISM SNOMED Code(s): 51007075 (6) Acute on chronic diastolic (congestive) heart failure Current Visit: No Status: Acute Code(s): I50.33 - ACUTE ON CHRONIC DIASTOLIC (CONGESTIVE) HEART FAILURE SNOMED Code(s): 164526303 (7) Acute on chronic renal failure Current Visit: No Status: Acute Code(s): N17.9 - ACUTE KIDNEY FAILURE, UNSPECIFIED; N18.9 - CHRONIC KIDNEY DISEASE, UNSPECIFIED SNOMED Code(s): 785807617 (8) Altered mental status Current Visit: No Status: Acute Code(s): R41.82 - ALTERED MENTAL STATUS, UNSPECIFIED SNOMED Code(s): 201084290 (9) CAD (coronary atherosclerotic disease) Current Visit: No Status: Acute Code(s): I25.10 - ATHSCL HEART DISEASE OF [place] CORONARY ARTERY W/O ANG PCTRS SNOMED Code(s): 795750028 (10) Hypertension Current Visit: No Status: Acute Code(s): I10 - ESSENTIAL (PRIMARY) HYPERT ENSION SNOMED Code(s): 46555982 (11) Hypoxia Current Visit: No Status: Acute Code(s): R09.02 - HYPOXEMIA SNOMED Code(s): 698361082 (12) Leukocytosis Current Visit: No Status: Acute Code(s): D72.829 - ELEVATED WHITE BLOOD CELL COUNT, UNSPECIFIED SNOMED Code(s): 613159712 (13) long term care phlebotomist prescription opiate use Current Visit: No Status: Acute Code(s): Z79.891 - SENIOR LIVING (CURRENT) USE OF OPIATE ANALGESIC SNOMED Code(s): 951459327 (14) Type 2 diabetes mellitus without complications Current Visit: No Status: Acute Code(s): E11.9 - TYPE 2 DIABETES MELLITUS WITHOUT COMPLICATIONS SNOMED Code(s): 927145383 (15) UTI (urinary tract infection) Current Visit: No Status: Acute Code(s): N39.0 - URINARY TRACT INFECTION, SITE NOT SPECIFIED SNOMED Code(s): 66647828 (16) Urinary retention Current Visit: No Status: Acute Code(s): R33.9 - RETENTION OF URINE, UNSPEC IFIED SNOMED Code(s): 269943043 Plan: I will standby for further recommendations from critical care, infectious disease, Nephrology, general surgery, cardiology, repeat labs in a.m., I spent 30+ minutes discussing her care with her family, I'll reevaluate her in the next 24 hours.
[2022-08-15] MEDS ORDERED: AMIODARONE 450 MG in DEXTROSE 5% IN WATER 250 ML IV SCH ×2 (15:45)
[2022-08-15 16:08] LABS: Appearance,Urine Cloudy (Clear); Bacteria,Urine Rare /hpf; Bilirubin,Urine Negative (Negative); Blood,Urine Large (Negative); Color,Urine Yellow; Glucose,Urine (UA) Negative (Negative); Ketones,Urine Negative (Negative); Leukocyte Esterase,Urine Negative (Negative); Mucus,Urine Rare /hpf; Nitrite,Urine Negative (Negative); PH, Urine 5.5 (5.0-8.0); Protein,Urine 1+ (Negative); RBC,Urine 1 /hpf (0-5); Specific Gravity,Urine 1.017 (1.001-1.035); Squamous Epithelial Cell,Urine 1 /hpf (0-4); Urobilinogen,Urine <2.0 mg/dL (<2.0); WBC,Urine 6 /hpf (0-5)
[2022-08-15 17:20] LABS: Glucose,Whole Blood 85 mg/dL (70-110)
[2022-08-15 19:41] LABS: Glucose,Whole Blood 74 mg/dL (70-110)
[2022-08-15] MEDS: DEXTROSE 50% SYRINGE 50 ML IVP PRN (19:42)
[2022-08-15] MEDS: VASOPRESSIN 60 UNIT in SODIUM CHLORIDE 0.9% 150 ML IV SCH (20:17)
[2022-08-15] MEDS: ENOXAPARIN 40 MG/0.4 ML SYRINGE SQ SCH (20:18)
[2022-08-15 23:01] LABS: Glucose,Whole Blood 95 mg/dL (70-110)
[2022-08-15] MEDS: METOCLOPRAMIDE 5 MG/ML 2 ML VIAL IVP SCH (23:55)
[2022-08-16] MEDS: CEFTOLOZANE/TAZOBACTAM 0.75 GM in SODIUM CHLORIDE 0.9% 100 ML IV SCH ×4 (00:32→23:36)
[2022-08-16] MEDS: IPRATROPIUM-ALBUTEROL 3 ML NEB INHALATION SCH ×6 (03:21→23:26)
[2022-08-16 04:34] LABS: Anisocytosis Slight; Basophils # (A) 0.2 k/uL (0-0.2); Basophils % (A) 1 %; Eosinophils % (A) 0 %; HCT 26.3 % (34.0-46.0); HGB 7.8 gm/dL (11.4-16.0); Hypochromasia Marked; Lymphocytes # (A) 1.2 k/uL (1.0-4.8); Lymphocytes % (A) 6 %; MCH 25.3 pg (25.0-35.0); MCHC 29.6 g/dL (31.0-37.0); MCV 85.5 fL (80.0-100.0); Mean Platelet Volume 8.6; Monocytes # (A) 0.6 k/uL (0-1.0); Monocytes % (A) 3 %; Neutrophils # (A) 17.5 k/uL (1.3-7.7); Neutrophils % (A) 87 %; Platelet Count 272 k/uL (150-450); Poikilocytosis Slight; RBC 3.07 m/uL (3.80-5.40); RDW 16.8 % (11.5-15.5); WBC 20.2 k/uL (3.8-10.6)
[2022-08-16] MEDS: AMIODARONE 450 MG in DEXTROSE 5% IN WATER 250 ML IV SCH ×6 (04:44→23:35)
[2022-08-16 04:52] LABS: Albumin 1.7 g/dL (3.5-5.0); Calcium 6.7 mg/dL (8.4-10.2); Magnesium 2.3 mg/dL (1.6-2.3); Phosphorus 4.8 mg/dL (2.5-4.5); Potassium 3.5 mmol/L (3.5-5.1); Total Bilirubin 0.4 mg/dL (0.2-1.3); Total Protein 4.2 g/dL (6.3-8.2)
[2022-08-16 05:43] LABS: ABG Base Excess -3.8 mmol/L; ABG HCO3 22 mmol/L (21-25); ABG Oxygen Saturation 97.8 % (94-97); ABG PCO2 39 mmHg (35-45); ABG PH 7.36 (7.35-7.45); ABG PO2 107 mmHg (83-108); ABG TCO2 23 mmol/L (19-24)
[2022-08-16 05:43] LABS: Glucose,Whole Blood 113 mg/dL (70-110)
[2022-08-16 05:48] LABS: Allen Test Performed? no
[2022-08-16] MEDS: METOCLOPRAMIDE 5 MG/ML 2 ML VIAL IVP SCH ×4 (05:48→23:40)
[2022-08-16] MEDS: POTASSIUM CHLORIDE 20 MEQ in WATER FOR INJECTION 1 100ML.BAG IVPB SCH ×2 (05:48→08:10)
[2022-08-16] MEDS: INSULIN ASPART (NovoLOG) 100 UNIT/ML VIAL SQ SCH ×4 (05:53→23:39)
[2022-08-16] MEDS ORDERED: CALCIUM GLUCONATE IN NACL 2 GM in SALINE 1 100ML.BAG IVPB ONE (06:15)
[2022-08-16 06:24] LABS: C Reactive Protein 50.4 mg/dL (<1.0)
[2022-08-16] MEDS: INSULIN DETEMIR (LEVEMIR) 100 UNIT/ML SYR SQ SCH (06:31)
[2022-08-16] MEDS: FORMOTEROL FUMARATE 20 MCG/2 ML NEBU INHALATION SCH ×2 (07:28→19:38)
[2022-08-16] MEDS: BUDESONIDE 1 MG/2 ML NEBU INHALATION SCH ×2 (07:28→19:38)
[2022-08-16] MEDS: PANTOPRAZOLE 40 MG/10 ML VIAL IVP SCH (07:48)
[2022-08-16] MEDS: ANIDULAFUNGIN 100 MG in SODIUM CHLORIDE 0.9% 100 ML IVPB SCH (07:48)
[2022-08-16] MEDS: CHLORHEXIDINE GLUCONATE 15 ML CUP MUCOUS MEM SCH ×2 (07:48→20:28)
[2022-08-16] MEDS: LACTULOSE 20 GM/30 ML CUP PO SCH ×4 (07:48→21:15)
[2022-08-16] MEDS: polyethylene glycoL 3350 17 GM POWD.PACK PO SCH ×2 (07:50→20:29)
[2022-08-16] MEDS: TAMSULOSIN 0.4 MG CAP.ER.24H PO SCH (07:50)
--- NOTE | 2022-08-16 08:52 | XR ---
EXAMINATION TYPE: XR chest 1V portable DATE OF EXAM: 08/16/2022 COMPARISON: 08/15/2022 HISTORY: Shortness of breath TECHNIQUE: Single frontal view of the chest is obtained. FINDINGS: Bilateral infiltrate and small pleural effusion stable. ET and NG tube stable. Sizable pne umothorax. Postoperative change left shoulder and overlying cervical spine. Central line stable. Hype rtrophic and degenerative changes spine. IMPRESSION: Persistent bilateral infiltrate and pleural effusion correlate for CHF versus diffuse pn eumonia.
--- NOTE | 2022-08-16 09:54 | P.PN ---
Subjective Progress Note Date: 08/16/22 The patient is an 87-year-old female with multiple comorbid conditions who is currently admitted to the hospital with bowel obstruction and septicemia. Cardiology was consulted for a syncopal episode just prior to admission. Cardiology has signed off but then was again for A. fib with RVR. Dr Dorado re commended amiodarone drip for rate control. The patient has a poor prognosis as she is currently ventilated on vasopressors and is deemed a high risk surgical candidate. Chest xray shows persistent bilateral infiltrates. Attempted tube feeds yesterday without success. Patient remains nothing by mouth. GENERAL: Ill-appearing, well-nourished and in no acute distress. Sedated on ventilator. NECK: Supple without JVD or thyromegaly. LUNGS: Breath sounds are coarse to auscultation bilaterally. Respiration equal and unlabored. Rhonchi throughout HEART: Irregular rate and rhythm without murmurs, rubs or gallops. S1 and S2 heard. EXTREMITIES: Normal range of motion, mild edema. No clubbing or cyanosis. TELEMETRY: Atrial fibrillation with rates in the one-teens LABS: WBC 20.2, hemoglobin 7.8, hematocrit 26.3, platelet 272, sodium 147, potassium 3.5, BUN 59, creatinine 1.59, AST 89, ALT 14, ALP 290 IMPRESSION: A. fib with RVR, currently on amiodarone for rate control Septicemia Acute kidney injury, improving Elevated liver enzymes, improving Acute respiratory failure on vasopressors GI bleeding with acute bowel obstruction PLAN: Continue IV amiodarone for rate control High risk surgical candidate No further recommendations from the cardiac standpoint I am dictating on behalf of Dr Joaquin Dorado's history/physical and assessment/plan. Objective - Vital Signs Vital signs: Vital Signs Temp 98.2 F 08/16/22 08:00 Pulse 122 H 08/16/22 08:00 Resp 24 08/16/22 08:00 BP 125/60 08/14/22 01:30 Pulse Ox 97 08/16/22 08:00 FiO2 40 08/16/22 08:00 Intake & Output 08/15/22 08/16/22 08/16/22 18:59 06:59 18:59 Intake Total 821.372 923.436 467.092 Output Total 1540 1035 135 Balance -718.628 -111.564 332.092 Weight 125 kg 120.7 kg Intake: IV 156 156 246 0.9% @ KVO 120 120 40 Calcium Gluconate in NaCl 100 1 gm In Saline 1 100ml. bag @ 100 mls/hr IVPB ONCE ONE Rx#:[id number] Potassium Chloride 20 meq 100 In Water For Injection 1 100ml.bag @ 50 mls/hr IVPB Q2H [facility] Rx#: [id number] Pressure Bag 36 36 6 Intake, IV Titration 635.372 617.436 221.092 Amount Amiodarone 450 mg In 182.504 Dextrose 5% in Water 250 ml @ 0.5 MG/MIN 16.667 mls/hr IV .Q15H [facility] Rx#: [id number] Calcium Gluconate in NaCl 100 1 gm In Saline 1 100ml. bag @ 100 mls/hr IVPB ONCE ONE Rx#:[id number] Calcium Gluconate in NaCl 100 2 gm In Saline 1 100ml. bag @ 100 mls/hr IVPB ONCE ONE Rx#:[id number] Ceftolozane/Tazobactam 0. 100 75 gm In Sodium Chloride 0.9% 100 ml @ 100 mls/hr IV Q8HR [facility] Rx#:[id number] Norepinephrine 32 mg In 109.632 77.663 Sodium Chloride 0.9% 218 ml @ 0.5 MCG/KG/MIN 25. 547 mls/hr IV .Q9H48M [facility] Rx#:[id number] Potassium Chloride 20 meq 100 In Water For Injection 1 100ml.bag @ 50 mls/hr IVPB ONCE [facility] Rx#: [id number] Potassium Chloride 20 meq 100 In Water For Injection 1 100ml.bag @ 50 mls/hr IVPB Q2H [facility] Rx#: [id number] Vasopressin 60 unit In 125.052 Sodium Chloride 0.9% 150 ml @ 0.04 UNITS/MIN 6.12 mls/hr IV .Q24H [facility] Rx#: [id number] propofoL 1,000 mg In 225.740 232.217 21.092 Empty Bag 1 bag @ 15 MCG/ KG/MIN 9.81 mls/hr IV . [id number] [facility] Rx#:[id number] Tube Feeding 30 Other 150 Output: Gastric Drainage 800 Urine 740 1035 135 Other: Voiding Method Indwelling Catheter Indwelling Catheter Indwelling Catheter # Bowel Movements 0 ABP, PAP, CO, CI - Last Documented Arterial Blood Pressure 115/45 - Labs CBC & Chem 7: 08/16/22 04:15 08/16/22 04:15 Labs: Abnormal Lab Results - Last 24 Hours (Table) 08/15/22 08/15/22 08/15/22 Range/Units 04:56 08:15 11:47 WBC 16.2 H (3.8-10.6) k/uL RBC 2.95 L (3.80-5.40) m/uL Hgb 7.7 L (11.4-16.0) gm/dL Hct 25.4 L (34.0-46.0) % MCHC 30.2 L (31.0-37.0) g/dL RDW 16.7 H (11.5-15.5) % Neutrophils # 13.9 H (1.3-7.7) k/uL ABG O2 Saturation (94-97) % Sodium (137-145) mmol/L Chloride (98-107) mmol/L Carbon Dioxide (22-30) mmol/L BUN (7-17) mg/dL Creatinine (0.52-1.04) mg/dL Glucose (74-99) mg/dL POC Glucose (mg/dL) 129 H (70-110) mg/dL Calcium (8.4-10.2) mg/dL Phosphorus (2.5-4.5) mg/dL AST (14-36) U/L Alkaline Phosphatase (38-126) U/L C-Reactive Protein (<1.0) mg/dL Total Protein (6.3-8.2) g/dL Albumin (3.5-5.0) g/dL Vitamin D 25-Hydroxy 8.1 L (30.0-100.0) ng/mL Urine Appearance (Clear) Urine Protein (Negative) Urine Blood (Negative) Urine WBC (0-5) /hpf Urine Bacteria (None) /hpf Urine Mucus (None) /hpf 08/15/22 08/16/22 08/16/22 Range/Units 15:30 04:15 04:15 WBC 20.2 H (3.8-10.6) k/uL RBC 3.07 L (3.80-5.40) m/uL Hgb 7.8 L (11.4-16.0) gm/dL Hct 26.3 L (34.0-46.0) % MCHC 29.6 L (31.0-37.0) g/dL RDW 16.8 H (11.5-15.5) % Neutrophils # 17.5 H (1.3-7.7) k/uL ABG O2 Saturation (94-97) % Sodium 147 H (137-145) mmol/L Chloride 119 H (98-107) mmol/L Carbon Dioxide 21 L (22-30) mmol/L BUN 59 H (7-17) mg/dL Creatinine 1.59 H (0.52-1.04) mg/dL Glucose 103 H (74-99) mg/dL POC Glucose (mg/dL) (70-110) mg/dL Calcium 6.7 L (8.4-10.2) mg/dL Phosphorus 4.8 H (2.5-4.5) mg/dL AST 89 H (14-36) U/L Alkaline Phosphatase 290 H (38-126) U/L C-Reactive Protein 50.4 H (<1.0) mg/dL Total Protein 4.2 L (6.3-8.2) g/dL Albumin 1.7 L (3.5-5.0) g/dL Vitamin D 25-Hydroxy (30.0-100.0) ng/mL Urine Appearance Cloudy H (Clear) Urine Protein 1+ H (Negative) Urine Blood Large H (Negative) Urine WBC 6 H (0-5) /hpf Urine Bacteria Rare H (None) /hpf Urine Mucus Rare H (None) /hpf 08/16/22 08/16/22 Range/Units 05:41 05:42 WBC (3.8-10.6) k/uL RBC (3.80-5.40) m/uL Hgb (11.4-16.0) gm/dL Hct (34.0-46.0) % MCHC (31.0-37.0) g/dL RDW (11.5-15.5) % Neutrophils # (1.3-7.7) k/uL ABG O2 Saturation 97.8 H (94-97) % Sodium (137-145) mmol/L Chloride (98-107) mmol/L Carbon Dioxide (22-30) mmol/L BUN (7-17) mg/dL Creatinine (0.52-1.04) mg/dL Glucose (74-99) mg/dL POC Glucose (mg/dL) 113 H (70-110) mg/dL Calcium (8.4-10.2) mg/dL Phosphorus (2.5-4.5) mg/dL AST (14-36) U/L Alkaline Phosphatase (38-126) U/L C-Reactive Protein (<1.0) mg/dL Total Protein (6.3-8.2) g/dL Albumin (3.5-5.0) g/dL Vitamin D 25-Hydroxy (30.0-100.0) ng/mL Urine Appearance (Clear) Urine Protein (Negative) Urine Blood (Negative) Urine WBC (0-5) /hpf Urine Bacteria (None) /hpf Urine Mucus (None) /hpf Microbiology - Last 24 Hours (Table) 08/10/22 17:00 Blood Culture - Preliminary Blood No Growth after 120 hours 08/14/22 15:00 Blood Culture - Preliminary Blood No Growth after 24 hours 08/09/22 14:19 Blood Culture - Final Blood No Growth after 144 hours 08/08/22 13:30 Blood Culture Gram Stain - Preliminary Blood Blood Culture - Preliminary Anaerobic Gm Negative Bacilli
--- NOTE | 2022-08-16 11:04 | P.PN ---
Subjective Progress Note Date: 08/16/22 cements, hypothyroidism, morbid obesity, multiple orthopedic surgeries, congestive heart failure, diabetes bella, hypertension, hyperlipidemia, osteoarthritis, obstructive sleep apnea on BiPAP, CVA/TIA, oxygen dependent and she was recently discharged from here to [facility] on the [place] and was just home for 3 days when she developed a syncopal episode yesterday. Her that may related to low blood sugar and try to give her oral issues which she vomited. She was brought into the emergency room yesterday. She is seen today in consultation. She remains in the emergency department. She is sitting up in bed. She is basically just moaning and groaning. Her family is at the bedside and provides him permission. She was initially placed on BiPAP. She is currently on 6 L high flow nasal cannula with O2 saturations in the 90s. Afebrile. Somewhat hypotensive. Blood culture reveals no growth to date. Urine culture pending. White count 19.1. Hemoglobin 8.0. Sodium 136. Potassium 4.6. Bicarb 17. BUN 66. Creatinine 2.27. Glucose 145. D-dimer 4.73. ProBNP 426. Troponin negative 1. CT angiogram ruled out pulmonary embolism. There is evidence of cardiomegaly with pulmonary vascular congestion. Scattered airspace opacities more consolidation in the right lung base. Rule out aspiration. Computed tomography scan of the abdomen and pelvis revealed extensive stool burden throughout the colon. 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 Today's chest x-ray shows Nasogastric tube in place. Mild cardiomegaly with bibasilar acute infiltrate and/or ate lectasis. She's been initiated on Symbicort, DuoNeb inhalations, antibiotics in the form of Levaquin. She is anticoagulated with Eliquis. The patient is seen today for per 2022 in follow-up in the intensive care unit. Just after midnight they called an a team on her due to her being obtun ded and hypotensive. She was on the sixth liter Ventimask and they do arterial blood gases that revealed a pO2 of 136, pCO2 31, pH 7.28. She was placed on BiPAP 12/5 and 50% and transferred into the intensive care unit. She received 3 A of sodium bicarb. She has D5W with 3 A of sodium bicarb at 75 ML's per hour. She is on norepinephrine at 27 mcg/m. Vasopressin at 0.03 units per minute. 0.9 normal saline at 20 mL per hour. She did undergo central line placement and arterial line placement. Follow-up blood gases reveal a pO2 of 295. PCO2 of 48. PH is 7.20 100% FiO2. White count 8.7. Hemoglobin 8.2. Platelets 311. Sodium 134. Potassium 6.3. Chloride 110. Bicarb 13. BUN 81. Creatinine 2.68. Glucose 134. Pro-calcitonin 11.0. She remains on bronchodilators. Continued on antibiotics in the form of Levaquin and cefepime. Her culture positive for group D enterococcus and gram-negative bacilli. Blood culture reveals no growth. The patient is seen today 08/11/2022 in follow-up in the intensive care unit. She did have progressive shortness of breath and hypoxemia and was subsequently intubated and placed on mechanical ventilator yesterday. He is currently on assist control mode with a rate of 20, tidal volume 400, FiO2 50% PEEP of 5. Morning blood gases revealed a PaO2 of 99, pCO2 45, pH 7.30 that was on 60% FiO2. She developed atrial fibrillation requiring amiodarone as well. She is hypotensive and requiring norepinephrine at 55 mcg/m, vasopressin at 0.04 units per minute. She remains on D5W with 3 A of bicarbonate 100 ML's per hour. 0.9 normal saline at 20 ML's per hour. She remains on antibiotics in the form of Levaquin, cefepime and daptomycin. Urine culture is positive for Enterococcus faecalis and Pseudomonas aeruginosa. Blood cultures showing no growth. Chest x-ray reveals no significant change. Stable appearance of the cardiomediastinal structures. Pleural effusion unchanged. No change in bibasilar opacities. White count 12.2. Hemoglobin 8.6. Platelets 349. Sodium 139. Potassium 5.1. Bicarb 22. BUN 79. Creatinine 2.74. Glucose 221. Lactic acid 3.2. Calcium 5.8. Cortisol 45. She is continued on DuoNeb inhalations, Pulmicort and Perforomist inhalations. The patient is seen today 08/12/2022 in follow-up in the intensive care unit. She remains intubated on the mechanical ventilator in assist control mode at a r ate of 28, tidal volume 400, FiO2 50% and PEEP of 5. Morning blood gases revealed a pO2 of 115, pCO2 40, pH 7.4. She is currently sedated on propofol at 25 mcg/kg/m. She is on normal saline at 100 mL an hour. She is still requiring pressors in the form of norepinephrine at 55 mcg/m and vasopressin at 0.04 units per minute. She remains on antibiotics in the form of Zerbaxa, Levaquin and daptomycin. Urine culture was positive for Enterococcus faecalis and Pseudomonas aeruginosa. Blood cultures have revealed no growth. Sputum culture pending. White count 6.8. Hemoglobin 8.4. Platelets 268. Sodium 140. Potassium 4.5. BUN 81. Creatinine 2.72. Glucose 162. Calcium 6.0. AST 166. ALT 21. Alk phos 385. Currently in a +3.1 L balance. She is continued on DuoNeb inhalations, Pulmicort and Perforomist inhalations. The patient is seen today 08/13/2022 in follow-up in the intensive care unit. He remains intubated and on mechanical ventilator currently and assist-control mode at a rate of 28, tidal volume 400, FiO2 40% and a PEEP of 5. Morning blood gases revealed a pO2 of 100, pCO2 is 88 and a pH of 7.35. She did have issues with atrial fibrillation and rapid ventricular response and was seen by cardiology earlier this morning who initiated amiodarone bolus and started a drip at 1 mg/m. She has normal saline at 100 MLS per hour. Propofol at 20 mcg/kg/m. Norepinephrine at 36 mcg/m and vasopressin at 0.04 units per minute. Tube feeds are currently on hold per surgery for possible ileus. Chest x-ray shows similar bibasilar airspace opacities. Urine culture positive for Enterococcus faecalis and pseudomonas aeruginosa. Blood culture preliminary positive for anaerobic gram-negative bacilli. Sputum culture hasn't for Ange. White count 9.6. Hemoglobin 8.2. Platelets 244. Sodium 141. Potassium 3.5. Bicarb 20. BUN 75. Creatinine 2.52. Glucose 159. Calcium 5.6. AST 162. ALT 19. Albumin 1.8. Currently in a +312 mL balance. She is currently on bronchodilators. Remains on Eraxis, Zerbaxa, daptomycin. Currently on Lovenox with pharmacy to dose. 08/14/2022, I'm seeing the patient for a follow-up. A very complicated case of a septic shock and 87-year-old female patient weighs currently on mechanical ventilator. The patient has had recurrent [place] tract infection in addition to multitude of comorbidities. She came with a septic shock and suspected bowel obstruction. In summary, the patient came with a septic shock and multisystem organ failure, currently intubated on a mechanical ventilator. This morning, she is on propofol running at 20 mcg/kg/m and she is calm and comfortable in bed at 6 with a mechanical ventilator. She'll assist-control mode of mechanical ventilation at the rate of 28 with a tidal volume of 400 and FiO2 40% with a PEEP of 5. Blood gas from today shows a pH of 7.37 with a pCO2 of 38 and pO2 113. Chest x-ray was also noted from today and there is adequate positioning of the orotracheal tube. There is also persistent bilateral pulmonary infiltrates and small effusions. There may be an underlying component of CHF. Airspace disease is seen in the left perihilar and right lower lobe area. Hemod ynamically, the patient is on pressors and norepinephrine is running at 0.14 mcg/kg/m and she is also on a physiologic dose of vasopressin. She remains active fibrillation and she does have a rapid ventricular response in her heart rate is around 120. She is on a broad-spectrum antibiotic coverage. She is currently on a combination of an axis and Zerbaxa and the cultures that were obtained earlier showed Pseudomonas that was multidrug resistance and Enterococcus faecalis in her urine, there was an anaerobic gram-negative bacillus in the blood, and there was also Ange and the blood. Hence, the antibiotic coverage was adjusted. In terms of her white cell count, she is currently running a white second of 11.2 with a hemoglobin of 7.8 and a platelet count of 229. Electrolytes are stable with a sodium of 144, potassium is at 3.0 with these to be replaced, BUN is at 67 with a creatinine of 2.21. The blood sugars at 147. The patient was taken off the amiodarone drip. The patient is on Levemir insulin 10 units and she is also receiving a sliding scale coverage. She is nothing by mouth. NG tube is in place. Output has been dark gastric material and output is minimal in the order of 500 mL per 24 hours, quite liquidy. Abdomen is soft, the patient was given several enemas without any successful bowel movement. Her previous echocardiogram from March 2022 as shown a moderate degree of aortic stenosis. Hylton cath is in place. Urine output is in order of 100 mL an hour and the patient is currently on IV fluids in the form of normal saline at rate of 50 mL an hour. She is afebrile. The patient also has a stage II wound in her coccyx. Fluid balance over the past 24 hours has been in the order of 730 mL. 08/15/2022, the patient remains intubated on a mechanical ventilator and the patient is being seen for a follow-up. Obviously, the patient is still septic, hypotensive, with evidence of multisystem organ failure, still on pressors, still intubated on a mechanical ventilator. As summary, over the past 24 hours, the patient was kept on mechanical ventilator, kept on antibiotics and pressors. This morning, she is sedated with propofol which is running at 30 mcg/kg/m. She is fairly sentences mechanical ventilator. She is on assist-control mode at a rate of 28, tidal volume of 100, FiO2 40% with a PEEP of 5. The peak airway pressure is 25. The blood gas shows a pH of 7.32 with a pCO2 of 39 and a pO2 of 106. Chest x-ray findings of essentially unchanged with some limited airspace disease in the lung bases bilaterally. Orotracheal tube remains in a good location. Hemodynamically, the patient is on IV fluids running at 10 mL an hour of normal saline. She has been in a positive fluid balance. She has been off pressors and the patient is on a physiologic dose of vasopressin and norepinephrine infusion was brought up to 0.2 mcg/kg/m and this is slightly higher compared to yesterday. Review blood cultures were sent yesterday. The patient is still in tachycardia with an underlying rhythm of atrial fibrillation. Her previous echocardiogram from March 2022 was essentially within normal limits. The antibiotic coverage is essentially the same and the patient remains on a combination of Eraxis and Zerbaxa. She is spiking low- grade fevers and her T-max is 100.5. In terms of her feeding, I was again his TPN specially with her systemic fungal anemia. We will give the patient rectal exam and there was no identifiable stool in the rectum. Flat film of the abdomen showed constipation and fecal stasis. Based on that, the patient was given lactulose. She was started on triple feeding again and currently she is on vital AF at the rate of 10 mL an hour. We are going to also start the patient on lactulose and gradually advance her diet. Hoping to have a bowel movement. She had a smear on a bowel movement yesterday. In terms of fluid balance, the patient has been in a positive fluid balance of 250 mL over the pas t 24 hours. The rest of the blood work shows a white cell count of 11.2 from yesterday. Repeat blood work is pending for now in terms of CBC. The sodium is at 145, potassium is at 3.8, serum bicarb is at 19, BUN 61 with a creatinine of 1.7. Total calcium levels at 6.4 and ionized calcium is normal at 4.5. AST is at 106, ALP is at 14, alkaline phosphatase is at 311, serum albumin is at 1.7 with a total protein of 4.0. She has a stage II coccygeal wounds. Condition remains critical. Family is at the bedside. 08/16 2022, remains on a mechanical ventilator and the patient is being seen in follow-up. The patient this morning is on a propofol running at 15 mcg/kg/m. Within the proximal of gradually cutting down the sedation and assessing the patient's underlying mental status. Meanwhile, she remains septic in a mechanical ventilator and she is still hypotensive although her pressor requirements have somewhat improved compared to yesterday. this morning, she did assist-control at the rate of 28, tidal volume of 400, FiO2 40% with a PEEP of 5. The chest x-ray shows essentially no interval change with some limited airspace disease in the lung bases more so on the right. The blood gas showed a pH of 7.36 with a pCO2 of 39 and pO2 of 107. She is quite interested a mechanical ventilator. She is on IV fluids at KVO. She is on norepinephrine at 0.1 for microvascular kilogram per minute and she is also on physiologic dose of vasopressin. Her overall fluid balance since yesterday has been in the order of +254 mL. She is producing adequate amount of urine output and renal function continues to improve. On today's blood work, her sodium level is at 147, potassium level of 3.5, BUN is 59 with a creatinine of 1.59. The white cell count remains elevated at 20.2 with a hemoglobin of 7.8 and a platelet count of 272. Review blood cultures have been sent and the cultures are negative for now and the patient remains on the same antibiotic coverage which included Eraxis and Zerbaxa. . Another issue is constipation and difficulty to feed this patient. I did not favor TPN because of an underlying systemic candidemia. I try to check with either and she had increased residuals. For now, she is on a combination of MiraLAX, lactulose and Reglan. She did have a smear of stool earlier. She hasn't had any significant feeding for the past 5 days. At the same time, cardiac rhythm is atrial fibrillation. The patient remains on amiodarone at 0.5 mg/m. Her rate is ranging between 120 and 1:30. She is maintaining her own pressure while being on pressors. Objective - Vital Signs Vital signs: Vital Signs Temp 98.2 F 08/16/22 08:00 Pulse 122 H 08/16/22 10:00 Resp 28 H 08/16/22 10:00 BP 125/60 08/14/22 01:30 Pulse Ox 96 08/16/22 10:00 FiO2 40 08/16/22 08:00 Intake & Output 08/15/22 08/16/22 08/16/22 18:59 06:59 18:59 Intake Total 821.372 676.304 0954.092 Output Total 1540 1035 285 Balance -718.628 -111.564 728.092 Weight 125 kg 120.7 kg Intake: IV 156 156 292 0.9% @ KVO 120 120 80 Calcium Gluconate in NaCl 100 1 gm In Saline 1 100ml. bag @ 100 mls/hr IVPB ONCE ONE Rx#:[id number] Potassium Chloride 20 meq 100 In Water For Injection 1 100ml.bag @ 50 mls/hr IVPB Q2H [facility] Rx#: [id number] Pressure Bag 36 36 12 Intake, IV Titration 635.372 617.436 721.092 Amount Amiodarone 450 mg In 182.504 Dextrose 5% in Water 250 ml @ 0.5 MG/MIN 16.667 mls/hr IV .Q15H [facility] Rx#: [id number] Calcium Gluconate in NaCl 100 1 gm In Saline 1 100ml. bag @ 100 mls/hr IVPB ONCE ONE Rx#:[id number] Calcium Gluconate in NaCl 300 2 gm In Saline 1 100ml. bag @ 100 mls/hr IVPB ONCE ONE Rx#:[id number] Ceftolozane/Tazobactam 0. 100 100 75 gm In Sodium Chloride 0.9% 100 ml @ 100 mls/hr IV Q8HR [facility] Rx#:[id number] Norepinephrine 32 mg In 109.632 77.663 Sodium Chloride 0.9% 218 ml @ 0.5 MCG/KG/MIN 25. 547 mls/hr IV .[id number] [facility] Rx#:[id number] Potassium Chloride 20 meq 100 In Water For Injection 1 100ml.bag @ 50 mls/hr IVPB [facility]CE [facility] Rx#: [id number] Potassium Chloride 20 meq 300 In Water For Injection 1 100ml.bag @ 50 mls/hr IVPB Q2H [facility] Rx#: [id number] Vasopressin 60 unit In 125.052 Sodium Chloride 0.9% 150 ml @ 0.04 UNITS/MIN 6.12 mls/hr IV .Q24H [facility] Rx#: [id number] propofoL 1,000 mg In 225.740 232.217 21.092 Empty Bag 1 bag @ 15 MCG/ KG/MIN 9.81 mls/hr IV . [id number] [facility] Rx#:[id number] Tube Feeding 30 Other 150 Output: Gastric Drainage 800 Urine 740 1035 285 Other: Voiding Method Indwelling Catheter Indwelling Catheter Indwelling Catheter # Bowel Movements 0 ABP, PAP, CO, CI - Last Documented Arterial Blood Pressure 101/41 - Exam GENERAL EXAM: Intubated, sedated, 87-year-old morbidly obese female, on 40% FiO2 and a PEEP of 5. HEAD: Normocephalic. EYES: Sluggish reaction of pupils, equal size. NOSE: Nasogastric tube secured in place. Clear with pink turbinates. THROAT: Oral endotracheal tube in place. NECK: No masses, no JVD. CHEST: No chest wall deformity. LUNGS: Equal air entry with crackles in the bilateral bases. CVS: S1 and S2 normal with no audible murmur, irregular rhythm. ABDOMEN: No hepatosplenomegaly, normal bowel sounds, no guarding or rigidity. SPINE: No scoliosis or deformity SKIN: No rashes CENTRAL NERVOUS SYSTEM: Sedated, tone is normal in all 4 extremities. EXTREMITIES: There is 1-2+ peripheral edema. Changes of chronic venous stasis. No clubbing, no cyanosis. Peripheral pulses are intact. - Labs CBC & Chem 7: 08/16/22 04:15 08/16/22 04:15 Labs: Abnormal Lab Results - Last 24 Hours (Table) 08/15/22 08/15/22 08/15/22 Range/Units 04:56 11:47 15:30 WBC (3.8-10.6) k/uL RBC (3.80-5.40) m/uL Hgb (11.4-16.0) gm/dL Hct (34.0-46.0) % MCHC (31.0-37.0) g/dL RDW (11.5-15.5) % Neutrophils # (1.3-7.7) k/uL ABG O2 Saturation (94-97) % Sodium (137-145) mmol/L Chloride (98-107) mmol/L Carbon Dioxide (22-30) mmol/L BUN (7-17) mg/dL Creatinine (0.52-1.04) mg/dL Glucose (74-99) mg/dL POC Glucose (mg/dL) 129 H (70-110) mg/dL Calcium (8.4-10.2) mg/dL Phosphorus (2.5-4.5) mg/dL AST (14-36) U/L Alkaline Phosphatase (38-126) U/L C-Reactive Protein (<1.0) mg/dL Total Protein (6.3-8.2) g/dL Albumin (3.5-5.0) g/dL Vitamin D 25-Hydroxy 8.1 L (30.0-100.0) ng/mL Procalcitonin (0.02-0.09) ng/mL Urine Appearance Cloudy H (Clear) Urine Protein 1+ H (Negative) Urine Blood Large H (Negative) Urine WBC 6 H (0-5) /hpf Urine Bacteria Rare H (None) /hpf Urine Mucus Rare H (None) /hpf 08/16/22 08/16/22 08/16/22 Range/Units 04:15 04:15 04:15 WBC 20.2 H (3.8-10.6) k/uL RBC 3.07 L (3.80-5.40) m/uL Hgb 7.8 L (11.4-16.0) gm/dL Hct 26.3 L (34.0-46.0) % MCHC 29.6 L (31.0-37.0) g/dL RDW 16.8 H (11.5-15.5) % Neutrophils # 17.5 H (1.3-7.7) k/uL ABG O2 Saturation (94-97) % Sodium 147 H (137-145) mmol/L Chloride 119 H (98-107) mmol/L Carbon Dioxide 21 L (22-30) mmol/L BUN 59 H (7-17) mg/dL Creatinine 1.59 H (0.52-1.04) mg/dL Glucose 103 H (74-99) mg/dL POC Glucose (mg/dL) (70-110) mg/dL Calcium 6.7 L (8.4-10.2) mg/dL Phosphorus 4.8 H (2.5-4.5) mg/dL AST 89 H (14-36) U/L Alkaline Phosphatase 290 H (38-126) U/L C-Reactive Protein 50.4 H (<1.0) mg/dL Total Protein 4.2 L (6.3-8.2) g/dL Albumin 1.7 L (3.5-5.0) g/dL Vitamin D 25-Hydroxy (30.0-100.0) ng/mL Procalcitonin 1.71 H (0.02-0.09) ng/mL Urine Appearance (Clear) Urine Protein (Negative) Urine Blood (Negative) Urine WBC (0-5) /hpf Urine Bacteria (None) /hpf Urine Mucus (None) /hpf 08/16/22 08/16/22 Range/Units 05:41 05:42 WBC (3.8-10.6) k/uL RBC (3.80-5.40) m/uL Hgb (11.4-16.0) gm/dL Hct (34.0-46.0) % MCHC (31.0-37.0) g/dL RDW (11.5-15.5) % Neutrophils # (1.3-7.7) k/uL ABG O2 Saturation 97.8 H (94-97) % Sodium (137-145) mmol/L Chloride (98-107) mmol/L Carbon Dioxide (22-30) mmol/L BUN (7-17) mg/dL Creatinine (0.52-1.04) mg/dL Glucose (74-99) mg/dL POC Glucose (mg/dL) 113 H (70-110) mg/dL Calcium (8.4-10.2) mg/dL Phosphorus (2.5-4.5) mg/dL AST (14-36) U/L Alkaline Phosphatase (38-126) U/L C-Reactive Protein (<1.0) mg/dL Total Protein (6.3-8.2) g/dL Albumin (3.5-5.0) g/dL Vitamin D 25-Hydroxy (30.0-100.0) ng/mL Procalcitonin (0.02-0.09) ng/mL Urine Appearance (Clear) Urine Protein (Negative) Urine Blood (Negative) Urine WBC (0-5) /hpf Urine Bacteria (None) /hpf Urine Mucus (None) /hpf Microbiology - Last 24 Hours (Table) 08/10/22 17:00 Blood Culture - Preliminary Blood No Growth after 120 hours 08/14/22 15:00 Blood Culture - Preliminary Blood No Growth after 24 hours 08/09/22 14:19 Blood Culture - Final Blood No Growth after 144 hours 08/08/22 13:30 Blood Culture Gram Stain - Preliminary Blood Blood Culture - Preliminary Anaerobic Gm Negative Bacilli Assessment and Plan Plan: Acute on chronic hypoxemic respiratory failure secondary to suspected diastolic congestive heart failure. The patient did deteriorate on 08/10/2022 requiring intubation mechanical ventilatory support. She has a component of CHF and multiple infiltrates bilaterally, as superinfection with a pneumonia cannot be completely ruled out. X-ray findings are the same. Blood gas is adequate for this morning. No major change in her blood gas or chest x-ray on today's evaluation. Septic shock secondary to above, now requiring pressor support in the form of norepinephrine and vasopressin, still hypotensive, still requiring pressors,, though was recommended antibiotics with a combination of Eraxis and Zerbaxa, still having low-grade fever, repeat blood cultures were sent yesterday and is also still pending. Remains on the same antibiotic coverage. The patient continues to require pressors and the patient's repeat blood cultures have been negative thus far. She is afebrile. urinary tract infection, sepsis. Urine culture positive for Enterococcus faecalis and Pseudomonas aeruginosa Systemic candidiasis with positive culture with Ange Anaerobic gram-negative bacteria in the blood Atrial fibrillation with a rapid ventricular response initiated on amiodarone drip and the patient remains on amiodarone at 0.5 mg/m Chronic constipation with significant stool impaction. Currently on a combination of laxatives including lactulose and MiraLAX. The patient is also on Reglan. Unable to tolerate enteral feeding due to high residuals. Previous history of urinary tract infections History of atrial fibrillation on Eliquis in the outpatient Acute on chronic kidney disease, creatinine peaked 2.77 and the patient's creatinine continues to improve Recent COVID-19 infection History of valvular heart disease with aortic valve stenosis and preserved LV function, based on an echocardiogram from March 2022 Chronic changes in the right lower lobe with small right pleural effusion Acute on chronic anemia my current hemoglobin 8.2 History of chronic obstructive pulmonary disease History of prior tobacco dependence History of diastolic congestive heart failure History of coronary disease with multiple stent placements History of CVA/TIA History of diabetes mellitus Morbid obesity Hypertension Hyperlipidemia Hypothyroidism Poor overall functional performance based on the above-mentioned multiple comorbidities with recent stay and ECF Plan: Ventilator support, no vent changes will be done for today Continue same antibiotic coverage IV fluids to KVO The Sedation and Assess the Patient's Mental Status Start free water at a dose of 200 mL every 4 hours serology Increase the lactulose to 4 times a day Continue Reglan Continue MiraLAX Producing adequate amount of urine output Monitor renal function Monitor blood pressure and gradually wean off the pressors if possible, norepinephrine first Restart amiodarone for rate control Lovenox for DVT prophylaxis, nontherapeutic dose, I would suggest stopping this and putting the patient on on Eliquis 5 mg twice a day. Repeat blood cultures were sent and that is also still pending Continue Eraxis/Zerbaxa Continue bronchodilators Overall prognosis remains poor We will continue to follow and make further recommendations based on her clinical status Is extremely critical. Case was discussed with the daughter at the bedside. We'll continue to follow. Evaluation was done >30 min Time with Patient: Greater than 30
[2022-08-16 11:24] LABS: Glucose,Whole Blood 137 mg/dL (70-110)
[2022-08-16] MEDS: ERGOCALCIFEROL 1,250 MCG (50,000 IU) CAPSULE PO SCH (11:24)
[2022-08-16] MEDS: NOREPINEPHRINE 32 MG in SODIUM CHLORIDE 0.9% 218 ML IV SCH ×2 (11:25→23:34)
--- NOTE | 2022-08-16 13:56 | P.PN ---
Subjective This is a 87-year-old morbidly, obese, female, well known to me. She has multiple medical problems including a chronic renal failure, chronic systolic congestive heart failure. I last seen her on August 05, 2022 at [facility] on the [place]. She was doing fairly well at that time. She was there for rehabilitation. This was her third [facility] visit in the past Several months.Her only complaint with some constipation. She not stool since August 03. She has been hospitalized in the past year nine times including this current visit.She was discharged from [facility] on August 06, 2022. On August 08, 2022 she presented the emergency room via EMS. Her indicates that she went to the bathroom, and, he had found her slumped over in her wheelchair, blue in the face and not breathing well. He had tried to feed her and given her some insulin. SheHer only complaint with some constipation. After patients admission, just after midnight and 18 was called on her and she is going to be attending hypotensive. Choose placement of any mask and BiPAP. Eventually she required intubation. And her about August 11. She's currently in abated and sedated.How to raise tachycardic blood pressure is stable with pressers.She is on aAnidulafungin For positive sputum and blood cultures of yeast. She remains on sodium chloride and potassium chloride IV and is now on tube feeds at 10 ml/hr. Labs for today show a leukocytosis at 16.2 with a left shift 13.9 neutrophils hemoglobin is 7.7. ABGs from this morning show page 7.32 PCO2 of 39 PO and HCO3 a 20.Chemistry is show the normal electrolytes decrease carbon dioxide and 19 GFR is 26. Calcium 6.4. She is receiving a amino acids and D5 through the IV. She has Dulcolax per rectum ordered. She has sheathing calcium gluconate. She remains Zerbaxa for antibiotic coverage.She is receiving Lovenox for anticoagulation and DVT prophylaxis, Levemir insulin along with scale, Levophed for blood pressure control, potassium chloride for hypokalemia. She's being followed by critical care, Nephrology,surgery, Infectious disease and cardiology August 16 2022: She remains intubated in the intensive care unit. Sedation has been discontinued. She remains on pressors of Levophed. The dose of this is been decreased. She did not tolerate tube feeds. Heart rate remains elevated. She is in atrial fibrillation. She is on potassium replacement protocol. Calcium gluconate, amiodarone drip, need to left fungated antifungal medication, ceftolazone/tazobactam for antibiotic coverage for suspected UTI and sepsis, Reglan for her constipation, insulin for her diabetes, Elequis for anticoagulation. Laboratory studies show a leukocytosis at 20.2 with hemoglobin of 70 absolute neutrophils 17.5. ABGs show pH 7.36 PCO2 39 PO2 107. Chemistries slightly altered, GFR is improved, CRP and pro calcitonin elevated. Repeat blood cultures have been negative. She remains on MiraLAX, lactulose and Reglan per critical care for the constipation issues. Calcitonin is improved. Glucose remains well controlled. Critical care planning gradually reducing her pressors as needed. Etiologies following for her A. fib with RVR. He continues to have volvulus. Objective - Vital Signs Vital signs: Vital Signs Temp 98.3 F 08/16/22 12:00 Pulse 129 H 08/16/22 12:00 Resp 18 08/16/22 12:00 BP 125/60 08/14/22 01:30 Pulse Ox 97 08/16/22 12:00 FiO2 40 08/16/22 12:00 Intake & Output 08/15/22 08/16/22 08/16/22 18:59 06:59 18:59 Intake Total 821.372 578.011 6044.808 Output Total 1540 1035 385 Balance -718.628 -111.564 749.808 Weight 125 kg 120.7 kg 120.7 kg Intake: IV 156 156 338 0.9% @ KVO 120 120 120 Calcium Gluconate in NaCl 100 1 gm In Saline 1 100ml. bag @ 100 mls/hr IVPB ONCE ONE Rx#:[id number] Potassium Chloride 20 meq 100 In Water For Injection 1 100ml.bag @ 50 mls/hr IVPB Q2H [facility] Rx#: [id number] Pressure Bag 36 36 18 Intake, IV Titration 635.372 617.436 796.808 Amount Amiodarone 450 mg In 182.504 Dextrose 5% in Water 250 ml @ 0.5 MG/MIN 16.667 mls/hr IV .Q15H [facility] Rx#: [id number] Calcium Gluconate in NaCl 100 1 gm In Saline 1 100ml. bag @ 100 mls/hr IVPB ONCE ONE Rx#:[id number] Calcium Gluconate in NaCl 300 2 gm In Saline 1 100ml. bag @ 100 mls/hr IVPB ONCE ONE Rx#:[id number] Ceftolozane/Tazobactam 0. 100 100 75 gm In Sodium Chloride 0.9% 100 ml @ 100 mls/hr IV Q8HR [facility] Rx#:[id number] Norepinephrine 32 mg In 109.632 77.663 47.431 Sodium Chloride 0.9% 218 ml @ 0.5 MCG/KG/MIN 25. 547 mls/hr IV .Q9H48M [facility] Rx#:[id number] Potassium Chloride 20 meq 100 In Water For Injection 1 100ml.bag @ 50 mls/hr IVPB [facility] Rx#: [id number] Potassium Chloride 20 meq 300 In Water For Injection 1 100ml.bag @ 50 mls/hr IVPB Q2H [facility] Rx#: [id number] Vasopressin 60 unit In 125.052 Sodium Chloride 0.9% 150 ml @ 0.04 UNITS/MIN 6.12 mls/hr IV .Q24H [facility] Rx#: [id number] propofoL 1,000 mg In 225.740 232.217 49.377 Empty Bag 1 bag @ 15 MCG/ KG/MIN 9.81 mls/hr IV . [id number] [facility] Rx#:[id number] Tube Feeding 30 Other 150 Output: Gastric Drainage 800 Urine 740 1035 385 Other: Voiding Method Indwelling Catheter Indwelling Catheter Indwelling Catheter # Bowel Movements 0 ABP, PAP, CO, CI - Last Documented Arterial Blood Pressure 115/48 - Exam General: Patient is intubatedin ICU, sedation is off, but she is not responding at this time. Neck: [No adenopathy.] Cardiac: [Heart regularly irregular. S1/S2 were equal, there is a 1/6 systolic murmur at the right, and left sternal border Lungs: Diminished breath sounds bilaterally scattered rhonchi noted mechanically ventilated Abdomen: Somewhat distended due to her fecal retention. No organomegaly. Bowel sounds presnt and normoactive in all 4 quadrants. This patient is morbidly obese, mild distention Extremes: Bilateral lower extremity and upper extremity edema is improved. O ffloading waffle boots are in place. Skin:deferred Neurologic: Patient is sedated on a ventilatory support Lymphatic: [No adenopathy.] - Labs CBC & Chem 7: 08/16/22 04:15 08/16/22 04:15 Labs: Abnormal Lab Results - Last 24 Hours (Table) 08/15/22 08/15/22 08/16/22 Range/Units 04:56 15:30 04:15 WBC (3.8-10.6) k/uL RBC (3.80-5.40) m/uL Hgb (11.4-16.0) gm/dL Hct (34.0-46.0) % MCHC (31.0-37.0) g/dL RDW (11.5-15.5) % Neutrophils # (1.3-7.7) k/uL ABG O2 Saturation (94-97) % Sodium (137-145) mmol/L Chloride (98-107) mmol/L Carbon Dioxide (22-30) mmol/L BUN (7-17) mg/dL Creatinine (0.52-1.04) mg/dL Glucose (74-99) mg/dL POC Glucose (mg/dL) (70-110) mg/dL Calcium (8.4-10.2) mg/dL Phosphorus (2.5-4.5) mg/dL AST (14-36) U/L Alkaline Phosphatase (38-126) U/L C-Reactive Protein (<1.0) mg/dL Total Protein (6.3-8.2) g/dL Albumin (3.5-5.0) g/dL Vitamin D 25-Hydroxy 8.1 L (30.0-100.0) ng/mL Procalcitonin 1.71 H (0.02-0.09) ng/mL Urine Appearance Cloudy H (Clear) Urine Protein 1+ H (Negative) Urine Blood Large H (Negative) Urine WBC 6 H (0-5) /hpf Urine Bacteria Rare H (None) /hpf Urine Mucus Rare H (None) /hpf 08/16/22 08/16/22 08/16/22 Range/Units 04:15 04:15 05:41 WBC 20.2 H (3.8-10.6) k/uL RBC 3.07 L (3.80-5.40) m/uL Hgb 7.8 L (11.4-16.0) gm/dL Hct 26.3 L (34.0-46.0) % MCHC 29.6 L (31.0-37.0) g/dL RDW 16.8 H (11.5-15.5) % Neutrophils # 17.5 H (1.3-7.7) k/uL ABG O2 Saturation 97.8 H (94-97) % Sodium 147 H (137-145) mmol/L Chloride 119 H (98-107) mmol/L Carbon Dioxide 21 L (22-30) mmol/L BUN 59 H (7-17) mg/dL Creatinine 1.59 H (0.52-1.04) mg/dL Glucose 103 H (74-99) mg/dL POC Glucose (mg/dL) (70-110) mg/dL Calcium 6.7 L (8.4-10.2) mg/dL Phosphorus 4.8 H (2.5-4.5) mg/dL AST 89 H (14-36) U/L Alkaline Phosphatase 290 H (38-126) U/L C-Reactive Protein 50.4 H (<1.0) mg/dL Total Protein 4.2 L (6.3-8.2) g/dL Albumin 1.7 L (3.5-5.0) g/dL Vitamin D 25-Hydroxy (30.0-100.0) ng/mL Procalcitonin (0.02-0.09) ng/mL Urine Appearance (Clear) Urine Protein (Negative) Urine Blood (Negative) Urine WBC (0-5) /hpf Urine Bacteria (None) /hpf Urine Mucus (None) /hpf 08/16/22 08/16/22 Range/Units 05:42 11:23 WBC (3.8-10.6) k/uL RBC (3.80-5.40) m/uL Hgb (11.4-16.0) gm/dL Hct (34.0-46.0) % MCHC (31.0-37.0) g/dL RDW (11.5-15.5) % Neutrophils # (1.3-7.7) k/uL ABG O2 Saturation (94-97) % Sodium (137-145) mmol/L Chloride (98-107) mmol/L Carbon Dioxide (22-30) mmol/L BUN (7-17) mg/dL Creatinine (0.52-1.04) mg/dL Glucose (74-99) mg/dL POC Glucose (mg/dL) 113 H 137 H (70-110) mg/dL Calcium (8.4-10.2) mg/dL Phosphorus (2.5-4.5) mg/dL AST (14-36) U/L Alkaline Phosphatase (38-126) U/L C-Reactive Protein (<1.0) mg/dL Total Protein (6.3-8.2) g/dL Albumin (3.5-5.0) g/dL Vitamin D 25-Hydroxy (30.0-100.0) ng/mL Procalcitonin (0.02-0.09) ng/mL Urine Appearance (Clear) Urine Protein (Negative) Urine Blood (Negative) Urine WBC (0-5) /hpf Urine Bacteria (None) /hpf Urine Mucus (None) /hpf Microbiology - Last 24 Hours (Table) 08/10/22 17:00 Blood Culture - Preliminary Blood No Growth after 120 hours 08/14/22 15:00 Blood Culture - Preliminary Blood No Growth after 24 hours 08/09/22 14:19 Blood Culture - Final Blood No Growth after 144 hours 08/08/22 13:30 Blood Culture Gram Stain - Preliminary Blood Blood Culture - Preliminary Anaerobic Gm Negative Bacilli Assessment and Plan (1) Sepsis Current Visit: Yes Status: Acute Code(s): A41.9 - SEPSIS, UNSPECIFIED ORGANISM SNOMED Code(s): 26423015 (2) Acute on chronic diastolic (congestive) heart failure Current Visit: No Status: Acute Code(s): I50.33 - ACUTE ON CHRONIC DIASTOLIC (CONGESTIVE) HEART FAILURE SNOMED Code(s): 726687674 (3) Hypokalemia Current Visit: Yes Status: Acute Code(s): E87.6 - HYPOKALEMIA SNOMED Code(s): 03891140 (4) Hypocalcemia Current Visit: Yes Status: Acute Code(s): E83.51 - HYPOCALCEMIA SNOMED Code(s): 5701298 (5) Acute exacerbation of chronic obstructive pulmonary disease Current Visit: Yes Status: Acute Code(s): J44.1 - CHRONIC OBSTRUCTIVE PULM ONARY DISEASE W (ACUTE) EXACERBATION SNOMED Code(s): 556705860 (6) Pneumonia Current Visit: Yes Status: Acute Code(s): J18.9 - PNEUMONIA, UNSPECIFIED ORGANISM SNOMED Code(s): 542397562 (7) Acute on chronic renal failure Current Visit: No Status: Acute Code(s): N17.9 - ACUTE KIDNEY FAILURE, UNSPECIFIED; N18.9 - CHRONIC KIDNEY DISEASE, UNSPECIFIED SNOMED Code(s): 063218395 (8) Altered mental status Current Visit: No Status: Acute Code(s): R41.82 - ALTERED MENTAL STATUS, UNSPECIFIED SNOMED Code(s): 330776528 (9) CAD (coronary atherosclerotic disease) Current Visit: No Status: Acute Code(s): I25.10 - ATHSCL HEART DISEASE OF [place] CORONARY ARTERY W/O ANG PCTRS SNOMED Code(s): 213701634 (10) Hypertension Current Visit: No Status: Acute Code(s): I10 - ESSENTIAL (PRIMARY) HYPE RTENSION SNOMED Code(s): 92508774 (11) Hypoxia Current Visit: No Status: Acute Code(s): R09.02 - HYPOXEMIA SNOMED Code(s): 703171116 (12) Leukocytosis Current Visit: No Status: Acute Code(s): D72.829 - ELEVATED WHITE BLOOD CELL COUNT, UNSPECIFIED SNOMED Code(s): 913505133 (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 Current Visit: No Status: Acute Code(s): Z79.891 - JAIL (CURRENT) USE OF OPIATE ANALGESIC SNOMED Code(s): 154439299 (14) Type 2 diabetes mellitus without complications Current Visit: No Status: Acute Code(s): E11.9 - TYPE 2 DIABETES MELLITUS WITHOUT COMPLICATIONS SNOMED Code(s): 928948259 (15) UTI (urinary tract infection) Current Visit: No Status: Acute Code(s): N39.0 - URINARY TRACT INFECTION, SITE NOT SPECIFIED SNOMED Code(s): 82188676 (16) Urinary retention Current Visit: No Status: Acute Code(s): R33.9 - RETENTION OF URINE, UNSP ECIFIED SNOMED Code(s): 353671642 Plan: I will standby for further recommendations from critical care, infectious disease, Nephrology, general surgery, cardiology, repeat labs in a.m., I again spent 30+ minutes discussing her care with her family, I'll reevaluate her in the next 24 hours.
--- NOTE | 2022-08-16 14:01 | P.PN ---
Subjective Patient is seen for follow-up for acute kidney injury, mostly ATN currently slowly improving. Etiology is sepsis with fungemia and UTI with urine cultures growing Pseudomonas and enterococcus. Patient also has left lower lobe pneumonia. Patient remains on the vent. FiO2 is at 40%. Patient is also maintained on levo fed as well as vasopressin Urine output at 100-1 50 mL an hour. Serum creatinine at 1.59 from peak at 2.7. Sodium was 147. Free water has been added to tube feedings. Started on trickle tube feeds Objective - Vital Signs Vital signs: Vital Signs Temp 98.3 F 08/16/22 12:00 Pulse 129 H 08/16/22 12:00 Resp 18 08/16/22 12:00 BP 125/60 08/14/22 01:30 Pulse Ox 97 08/16/22 12:00 FiO2 40 08/16/22 12:00 Intake & Output 08/15/22 08/16/22 08/16/22 18:59 06:59 18:59 Intake Total 821.372 985.532 6457.808 Output Total 1540 1035 865 Balance -718.628 -111.564 565.808 Weight 125 kg 120.7 kg 120.7 kg Intake: IV 156 156 384 0.9% @ KVO 120 120 160 Calcium Gluconate in NaCl 100 1 gm In Saline 1 100ml. bag @ 100 mls/hr IVPB ONCE ONE Rx#:[id number] Potassium Chloride 20 meq 100 In Water For Injection 1 100ml.bag @ 50 mls/hr IVPB Q2H [facility] Rx#: [id number] Pressure Bag 36 36 24 Intake, IV Titration 635.372 617.436 796.808 Amount Amiodarone 450 mg In 182.504 Dextrose 5% in Water 250 ml @ 0.5 MG/MIN 16.667 mls/hr IV .Q15H [facility] Rx#: [id number] Calcium Gluconate in NaCl 100 1 gm In Saline 1 100ml. bag @ 100 mls/hr IVPB ONCE ONE Rx#:[id number] Calcium Gluconate in NaCl 300 2 gm In Saline 1 100ml. bag @ 100 mls/hr IVPB ONCE ONE Rx#:[id number] Ceftolozane/Tazobactam 0. 100 100 75 gm In Sodium Chloride 0.9% 100 ml @ 100 mls/hr IV Q8HR [facility] Rx#:[id number] Norepinephrine 32 mg In 109.632 77.663 47.431 Sodium Chloride 0.9% 218 ml @ 0.5 MCG/KG/MIN 25. 547 mls/hr IV .Q9H48M [facility] Rx#:[id number] Potassium Chloride 20 meq 100 In Water For Injection 1 100ml.bag @ 50 mls/hr IVPB ONCE [facility] Rx#: [id number] Potassium Chloride 20 meq 300 In Water For Injection 1 100ml.bag @ 50 mls/hr IVPB Q2H [facility] Rx#: [id number] Vasopressin 60 unit In 125.052 Sodium Chloride 0.9% 150 ml @ 0.04 UNITS/MIN 6.12 mls/hr IV .Q24H [facility] Rx#: [id number] propofoL 1,000 mg In 225.740 232.217 49.377 Empty Bag 1 bag @ 15 MCG/ KG/MIN 9.81 mls/hr IV . [id number] [facility] Rx#:[id number] Tube Feeding 30 Other 150 250 Output: Gastric Drainage 800 400 Urine 740 1035 465 Other: Voiding Method Indwelling Catheter Indwelling Catheter Indwelling Catheter # Bowel Movements 0 ABP, PAP, CO, CI - Last Documented Arterial Blood Pressure 115/48 - Exam Patient is sedated and on the vent. Examination of the heart S1 and S2 Examination of the lungs bilateral breath sounds are heard Abdomen is soft distended obese Examination lower extremity shows edema 2+ bilaterally upper and lower extremities AUDITING MANAGER exam cannot be performed - Labs CBC & Chem 7: 08/16/22 04:15 08/16/22 04:15 Labs: Abnormal Lab Results - Last 24 Hours (Table) 08/15/22 08/15/22 08/16/22 Range/Units 04:56 15:30 04:15 WBC (3.8-10.6) k/uL RBC (3.80-5.40) m/uL Hgb (11.4-16.0) gm/dL Hct (34.0-46.0) % MCHC (31.0-37.0) g/dL RDW (11.5-15.5) % Neutrophils # (1.3-7.7) k/uL ABG O2 Saturation (94-97) % Sodium (137-145) mmol/L Chloride (98-107) mmol/L Carbon Dioxide (22-30) mmol/L BUN (7-17) mg/dL Creatinine (0.52-1.04) mg/dL Glucose (74-99) mg/dL POC Glucose (mg/dL) (70-110) mg/dL Calcium (8.4-10.2) mg/dL Phosphorus (2.5-4.5) mg/dL AST (14-36) U/L Alkaline Phosphatase (38-126) U/L C-Reactive Protein (<1.0) mg/dL Total Protein (6.3-8.2) g/dL Albumin (3.5-5.0) g/dL Vitamin D 25-Hydroxy 8.1 L (30.0-100.0) ng/mL Procalcitonin 1.71 H (0.02-0.09) ng/mL Urine Appearance Cloudy H (Clear) Urine Protein 1+ H (Negative) Urine Blood Large H (Negative) Urine WBC 6 H (0-5) /hpf Urine Bacteria Rare H (None) /hpf Urine Mucus Rare H (None) /hpf 08/16/22 08/16/22 08/16/22 Range/Units 04:15 04:15 05:41 WBC 20.2 H (3.8-10.6) k/uL RBC 3.07 L (3.80-5.40) m/uL Hgb 7.8 L (11.4-16.0) gm/dL Hct 26.3 L (34.0-46.0) % MCHC 29.6 L (31.0-37.0) g/dL RDW 16.8 H (11.5-15.5) % Neutrophils # 17.5 H (1.3-7.7) k/uL ABG O2 Saturation 97.8 H (94-97) % Sodium 147 H (137-145) mmol/L Chloride 119 H (98-107) mmol/L Carbon Dioxide 21 L (22-30) mmol/L BUN 59 H (7-17) mg/dL Creatinine 1.59 H (0.52-1.04) mg/dL Glucose 103 H (74-99) mg/dL POC Glucose (mg/dL) (70-110) mg/dL Calcium 6.7 L (8.4-10.2) mg/dL Phosphorus 4.8 H (2.5-4.5) mg/dL AST 89 H (14-36) U/L Alkaline Phosphatase 290 H (38-126) U/L C-Reactive Protein 50.4 H (<1.0) mg/dL Total Protein 4.2 L (6.3-8.2) g/dL Albumin 1.7 L (3.5-5.0) g/dL Vitamin D 25-Hydroxy (30.0-100.0) ng/mL Procalcitonin (0.02-0.09) ng/mL Urine Appearance (Clear) Urine Protein (Negative) Urine Blood (Negative) Urine WBC (0-5) /hpf Urine Bacteria (None) /hpf Urine Mucus (None) /hpf 08/16/22 08/16/22 Range/Units 05:42 11:23 WBC (3.8-10.6) k/uL RBC (3.80-5.40) m/uL Hgb (11.4-16.0) gm/dL Hct (34.0-46.0) % MCHC (31.0-37.0) g/dL RDW (11.5-15.5) % Neutrophils # (1.3-7.7) k/uL ABG O2 Saturation (94-97) % Sodium (137-145) mmol/L Chloride (98-107) mmol/L Carbon Dioxide (22-30) mmol/L BUN (7-17) mg/dL Creatinine (0.52-1.04) mg/dL Glucose (74-99) mg/dL POC Glucose (mg/dL) 113 H 137 H (70-110) mg/dL Calcium (8.4-10.2) mg/dL Phosphorus (2.5-4.5) mg/dL AST (14-36) U/L Alkaline Phosphatase (38-126) U/L C-Reactive Protein (<1.0) mg/dL Total Protein (6.3-8.2) g/dL Albumin (3.5-5.0) g/dL Vitamin D 25-Hydroxy (30.0-100.0) ng/mL Procalcitonin (0.02-0.09) ng/mL Urine Appearance (Clear) Urine Protein (Negative) Urine Blood (Negative) Urine WBC (0-5) /hpf Urine Bacteria (None) /hpf Urine Mucus (None) /hpf Microbiology - Last 24 Hours (Table) 08/10/22 17:00 Blood Culture - Preliminary Blood No Growth after 120 hours 08/14/22 15:00 Blood Culture - Preliminary Blood No Growth after 24 hours 08/09/22 14:19 Blood Culture - Final Blood No Growth after 144 hours 08/08/22 13:30 Blood Culture Gram Stain - Preliminary Blood Blood Culture - Preliminary Anaerobic Gm Negative Bacilli Assessment and Plan Assessment: 1. Acute kidney injury secondary to ATN from underlying infection with fungemia and urine tract infection with Pseudomonas and enterococcus. Creatinine is improved this morning from 2.72 mg to 1.59. 2. Hypotension secondary to sepsis, on levo fed and vasopressin blood 3. Ventilator dependent respiratory failure, stable 40% FiO2 3. Left lower lobe pneumonia 4. UTI with Pseudomonas and enterococcus. 5. Hypocalcemia secondary to acute kidney injury. Severe nutritional vitamin D deficiency noted 6. Elevated liver function tests secondary to sepsis Plan: Replace vitamin D Agree with free water with tube feedings Replace potassium
[2022-08-16] MEDS: VASOPRESSIN 60 UNIT in SODIUM CHLORIDE 0.9% 150 ML IV SCH (14:53)
[2022-08-16] MEDS ORDERED: MVI, ADULT NO.4 WITH VIT K 10 ML, TRACE (CONC-1ML/DOSE) 1 ML, POTASSIUM ACETATE 20 MEQ,... IV ONE ×5 (15:00)
--- NOTE | 2022-08-16 15:18 | P.PN ---
Subjective Progress Note Date: 08/16/22 CHIEF COMPLAINT: Abdominal pain HISTORY OF PRESENT ILLNESS: Patient remains in the ICU intubated and on m echanical ventilation. She is requiring Levophed and vasopressin. Afebrile. She remains tachycardic. She did have a smear of a bowel movement. Tube feedings are currently off due to high residual. Critical care service did add Reglan and lactulose. White count did go up from 16-20. Hgb 7.8 platelets 272 creatinine 1.59. PHYSICAL EXAM: VITAL SIGNS: Reviewed GENERAL: no acute distress. Head is atraumatic, normocephalic. No nasal drainage. NECK: Supple without lymphadenopathy. CHEST: Non-labored respirations and equal bilateral excursions. CARDIOVASCULAR: Palpable 2+ radial pulses. ABDOMEN: Soft. distended. MUSCULOSKELETAL: No clubbing or cyanosis. ASSESSMENT: 1. Sigmoid volvulus 2. Constipation 3. UTI with sepsis 4. Syncopal episode 5. Lactic acidosis 6. Acute on chronic kidney disease 7. History of atrial fibrillation 8. History of CVA 9. Hypokalemia 10. Hypocalcemia 11. Possible culture with yeast PLAN: -No surgical intervention planned -Patient is considered high risk for surgical intervention -Continue conservative management -Continue supportive care -Agree with laxatives and Reglan Physician Cadmium Plater note has been reviewed by physician. Signing provider agrees with the documented findings, assessment, and plan of care. Objective - Vital Signs Vital signs: Vital Signs Temp 98.3 F 08/16/22 12:00 Pulse 129 H 08/16/22 12:00 Resp 18 08/16/22 12:00 BP 125/60 08/14/22 01:30 Pulse Ox 97 08/16/22 12:00 FiO2 40 08/16/22 12:00 Intake & Output 08/15/22 08/16/22 08/16/22 18:59 06:59 18:59 Intake Total 821.372 011.396 7461.808 Output Total 1540 1035 385 Balance -718.628 -111.564 749.808 Weight 125 kg 120.7 kg 120.7 kg Intake: IV 156 156 338 0.9% @ KVO 120 120 120 Calcium Gluconate in NaCl 100 1 gm In Saline 1 100ml. bag @ 100 mls/hr IVPB ONCE ONE Rx#:[id number] Potassium Chloride 20 meq 100 In Water For Injection 1 100ml.bag @ 50 mls/hr IVPB Q2H [facility] Rx#: [id number] Pressure Bag 36 36 18 Intake, IV Titration 635.372 617.436 796.808 Amount Amiodarone 450 mg In 182.504 Dextrose 5% in Water 250 ml @ 0.5 MG/MIN 16.667 mls/hr IV .Q15H [facility] Rx#: [id number] Calcium Gluconate in NaCl 100 1 gm In Saline 1 100ml. bag @ 100 mls/hr IVPB ONCE ONE Rx#:[id number] Calcium Gluconate in NaCl 300 2 gm In Saline 1 100ml. bag @ 100 mls/hr IVPB ONCE ONE Rx#:[id number] Ceftolozane/Tazobactam 0. 100 100 75 gm In Sodium Chloride 0.9% 100 ml @ 100 mls/hr IV Q8HR [facility] Rx#:[id number] Norepinephrine 32 mg In 109.632 77.663 47.431 Sodium Chloride 0.9% 218 ml @ 0.5 MCG/KG/MIN 25. 547 mls/hr IV .Q9H48M [facility] Rx#:[id number] Potassium Chloride 20 meq 100 In Water For Injection 1 100ml.bag @ 50 mls/hr IVPB ONCE [facility] Rx#: [id number] Potassium Chloride 20 meq 300 In Water For Injection 1 100ml.bag @ 50 mls/hr IVPB Q2H [facility] Rx#: [id number] Vasopressin 60 unit In 125.052 Sodium Chloride 0.9% 150 ml @ 0.04 UNITS/MIN 6.12 mls/hr IV .Q24H [facility] Rx#: [id number] propofoL 1,000 mg In 225.740 232.217 49.377 Empty Bag 1 bag @ 15 MCG/ KG/MIN 9.81 mls/hr IV . [id number] [facility] Rx#:[id number] Tube Feeding 30 Other 150 Output: Gastric Drainage 800 Urine 740 1035 385 Other: Voiding Method Indwelling Catheter Indwelling Catheter Indwelling Catheter # Bowel Movements 0 ABP, PAP, CO, CI - Last Documented Arterial Blood Pressure 115/48 - Labs CBC & Chem 7: 08/16/22 04:15 08/16/22 04:15 Labs: Abnormal Lab Results - Last 24 Hours (Table) 08/15/22 08/15/22 08/16/22 Range/Units 04:56 15:30 04:15 WBC (3.8-10.6) k/uL RBC (3.80-5.40) m/uL Hgb (11.4-16.0) gm/dL Hct (34.0-46.0) % MCHC (31.0-37.0) g/dL RDW (11.5-15.5) % Neutrophils # (1.3-7.7) k/uL ABG O2 Saturation (94-97) % Sodium (137-145) mmol/L Chloride (98-107) mmol/L Carbon Dioxide (22-30) mmol/L BUN (7-17) mg/dL Creatinine (0.52-1.04) mg/dL Glucose (74-99) mg/dL POC Glucose (mg/dL) (70-110) mg/dL Calcium (8.4-10.2) mg/dL Phosphorus (2.5-4.5) mg/dL AST (14-36) U/L Alkaline Phosphatase (38-126) U/L C-Reactive Protein (<1.0) mg/dL Total Protein (6.3-8.2) g/dL Albumin (3.5-5.0) g/dL Vitamin D 25-Hydroxy 8.1 L (30.0-100.0) ng/mL Procalcitonin 1.71 H (0.02-0.09) ng/mL Urine Appearance Cloudy H (Clear) Urine Protein 1+ H (Negative) Urine Blood Large H (Negative) Urine WBC 6 H (0-5) /hpf Urine Bacteria Rare H (None) /hpf Urine Mucus Rare H (None) /hpf 08/16/22 08/16/22 08/16/22 Range/Units 04:15 04:15 05:41 WBC 20.2 H (3.8-10.6) k/uL RBC 3.07 L (3.80-5.40) m/uL Hgb 7.8 L (11.4-16.0) gm/dL Hct 26.3 L (34.0-46.0) % MCHC 29.6 L (31.0-37.0) g/dL RDW 16.8 H (11.5-15.5) % Neutrophils # 17.5 H (1.3-7.7) k/uL ABG O2 Saturation 97.8 H (94-97) % Sodium 147 H (137-145) mmol/L Chloride 119 H (98-107) mmol/L Carbon Dioxide 21 L (22-30) mmol/L BUN 59 H (7-17) mg/dL Creatinine 1.59 H (0.52-1.04) mg/dL Glucose 103 H (74-99) mg/dL POC Glucose (mg/dL) (70-110) mg/dL Calcium 6.7 L (8.4-10.2) mg/dL Phosphorus 4.8 H (2.5-4.5) mg/dL AST 89 H (14-36) U/L Alkaline Phosphatase 290 H (38-126) U/L C-Reactive Protein 50.4 H (<1.0) mg/dL Total Protein 4.2 L (6.3-8.2) g/dL Albumin 1.7 L (3.5-5.0) g/dL Vitamin D 25-Hydroxy (30.0-100.0) ng/mL Procalcitonin (0.02-0.09) ng/mL Urine Appearance (Clear) Urine Protein (Negative) Urine Blood (Negative) Urine WBC (0-5) /hpf Urine Bacteria (None) /hpf Urine Mucus (None) /hpf 08/16/22 08/16/22 Range/Units 05:42 11:23 WBC (3.8-10.6) k/uL RBC (3.80-5.40) m/uL Hgb (11.4-16.0) gm/dL Hct (34.0-46.0) % MCHC (31.0-37.0) g/dL RDW (11.5-15.5) % Neutrophils # (1.3-7.7) k/uL ABG O2 Saturation (94-97) % Sodium (137-145) mmol/L Chloride (98-107) mmol/L Carbon Dioxide (22-30) mmol/L BUN (7-17) mg/dL Creatinine (0.52-1.04) mg/dL Glucose (74-99) mg/dL POC Glucose (mg/dL) 113 H 137 H (70-110) mg/dL Calcium (8.4-10.2) mg/dL Phosphorus (2.5-4.5) mg/dL AST (14-36) U/L Alkaline Phosphatase (38-126) U/L C-Reactive Protein (<1.0) mg/dL Total Protein (6.3-8.2) g/dL Albumin (3.5-5.0) g/dL Vitamin D 25-Hydroxy (30.0-100.0) ng/mL Procalcitonin (0.02-0.09) ng/mL Urine Appearance (Clear) Urine Protein (Negative) Urine Blood (Negative) Urine WBC (0-5) /hpf Urine Bacteria (None) /hpf Urine Mucus (None) /hpf Microbiology - Last 24 Hours (Table) 08/10/22 17:00 Blood Culture - Preliminary Blood No Growth after 120 hours 08/14/22 15:00 Blood Culture - Preliminary Blood No Growth after 24 hours 08/09/22 14:19 Blood Culture - Final Blood No Growth after 144 hours 08/08/22 13:30 Blood Culture Gram Stain - Preliminary Blood Blood Culture - Preliminary Anaerobic Gm Negative Bacilli
[2022-08-16 17:08] LABS: Glucose,Whole Blood 199 mg/dL (70-110)
[2022-08-16] MEDS: APIXABAN 5 MG TAB PO SCH (20:28)
--- NOTE | 2022-08-16 21:47 | P.PN ---
Subjective Progress Note Date: 08/15/22 Principal diagnosis: Sepsis/septic shock Patient is a 87-year-old female with multiple comorbidities presented to the hospital with a syncopal episode weakness subsequently hypotension, sepsis requiring transfer to the ICU and intubation on the vent. On today's evaluation that is 08/15/2022, the patient did spike a fever 100.4F this morning, the patient is requiring less pressor support to maintain her blood pressure per the nursing staff, FiO2 is currently stable at 40 %, no significant purulent secretions through the ET or any diarrhea has been reported Objective - Vital Signs Vital signs: Vital Signs Temp 100.5 F H 08/15/22 08:00 Pulse 133 H 08/15/22 09:00 Resp 28 H 08/15/22 09:00 BP 125/60 08/14/22 01:30 Pulse Ox 97 08/15/22 09:00 FiO2 40 08/15/22 10:53 Intake & Output 08/14/22 08/15/22 08/15/22 18:59 06:59 18:59 Intake Total 1767.517 902.386 537.690 Output Total 1755 660 165 Balance 12.517 242.386 372.690 Weight 123.1 kg 125 kg Intake: IV 706 143 39 .9 10 170 110 30 .9 3cc/hr 36 33 9 Anidulafungin 200 mg In 100 Sodium Chloride 0.9% 200 ml @ 84 mls/hr IVPB ONCE ONE Rx#:[id number] Potassium Chloride 20 meq 100 In Water For Injection 1 100ml.bag @ 50 mls/hr IVPB Q2H [facility] Rx#: [id number] Sodium Chloride 0.9% 1, 300 000 ml @ 50 mls/hr IV . Q20H [facility] Rx#:[id number] Intake, IV Titration 1061.517 609.386 468.690 Amount Amiodarone 360 mg In 200 Dextrose 5% in Water 200 ml @ 1 MG/MIN 33.333 mls/ hr IV .Q6H [facility] Rx#: [id number] Amiodarone 450 mg In 97.502 Dextrose 5% in Water 250 ml @ 0.5 MG/MIN 16.667 mls/hr IV .Q15H [facility] Rx#: [id number] Calcium Gluconate in NaCl 100 1 gm In Saline 1 100ml. bag @ 100 mls/hr IVPB ONCE [facility] Rx#:[id number] Calcium Gluconate in NaCl 100 2 gm In Saline 1 100ml. bag @ 50 mls/hr IVPB ONCE [facility] Rx#:[id number] Ceftolozane/Tazobactam 0. 100 100 75 gm In Sodium Chloride 0.9% 100 ml @ 100 mls/hr IV Q8HR [facility] Rx#:[id number] Mvi, Adult No.4 with Vit 150 255 K 10 ml Trace (Conc-1Ml/ Dose) 1 ml Sodium Acetate 30 meq Potassium Chloride 20 meq Calcium Gluconate 1 gm In Amino Acid 5%-D15w 1,000 ml @ 30 mls/hr IV .Q24H [facility] Rx #:[id number] Norepinephrine 32 mg In 27.625 101.386 83.233 Sodium Chloride 0.9% 218 ml @ 0.5 MCG/KG/MIN 25. 547 mls/hr IV .Q9H48M [facility] Rx#:[id number] Potassium Chloride 20 meq 200 In Water For Injection 1 100ml.bag @ 50 mls/hr IVPB ONCE [facility] Rx#: [id number] Potassium Chloride 20 meq 100 In Water For Injection 1 100ml.bag @ 50 mls/hr IVPB ONCE [facility] Rx#: [id number] Vasopressin 60 unit In 153 Sodium Chloride 0.9% 150 ml @ 0.04 UNITS/MIN 6.12 mls/hr IV .Q24H [facility] Rx#: [id number] propofoL 1,000 mg In 186.390 100.000 85.457 Empty Bag 1 bag @ 15 MCG/ KG/MIN 9.81 mls/hr IV . [id number] [facility] Rx#:[id number] Tube Feeding 90 30 Other 60 Output: Gastric Drainage 500 Urine 1255 660 165 Other: Voiding Method Indwelling Catheter Indwelling Catheter Indwelling Catheter ABP, PAP, CO, CI - Last Documented Arterial Blood Pressure 103/45 - Exam GENERAL DESCRIPTION: An elderly female intubated on the vent RESPIRATORY SYSTEM: Unlabored breathing , decreased breath sounds at bases HEART: S1 S2 regular rate and rhythm , ABDOMEN: Soft , no tenderness EXTREMITIES: Lower extremity swelling no redness - Labs CBC & Chem 7: 08/16/22 04:15 08/16/22 04:15 Labs: Abnormal Lab Results - Last 24 Hours (Table) 08/14/22 08/14/22 08/14/22 Range/Units 12:42 17:33 23:50 WBC (3.8-10.6) k/uL RBC (3.80-5.40) m/uL Hgb (11.4-16.0) gm/dL Hct (34.0-46.0) % MCHC (31.0-37.0) g/dL RDW (11.5-15.5) % Neutrophils # (1.3-7.7) k/uL ABG pH (7.35-7.45) ABG HCO3 (21-25) mmol/L ABG O2 Saturation (94-97) % Chloride (98-107) mmol/L Carbon Dioxide (22-30) mmol/L BUN (7-17) mg/dL Creatinine (0.52-1.04) mg/dL Glucose (74-99) mg/dL POC Glucose (mg/dL) 166 H 167 H 147 H (70-110) mg/dL Calcium (8.4-10.2) mg/dL AST (14-36) U/L Alkaline Phosphatase (38-126) U/L Total Protein (6.3-8.2) g/dL Albumin (3.5-5.0) g/dL 08/15/22 08/15/22 08/15/22 Range/Units 04:56 05:29 05:30 WBC (3.8-10.6) k/uL RBC (3.80-5.40) m/uL Hgb (11.4-16.0) gm/dL Hct (34.0-46.0) % MCHC (31.0-37.0) g/dL RDW (11.5-15.5) % Neutrophils # (1.3-7.7) k/uL ABG pH 7.32 L (7.35-7.45) ABG HCO3 20 L (21-25) mmol/L ABG O2 Saturation 97.7 H (94-97) % Chloride 117 H (98-107) mmol/L Carbon Dioxide 19 L (22-30) mmol/L BUN 61 H (7-17) mg/dL Creatinine 1.74 H (0.52-1.04) mg/dL Glucose 154 H (74-99) mg/dL POC Glucose (mg/dL) 176 H (70-110) mg/dL Calcium 6.4 L* (8.4-10.2) mg/dL AST 106 H (14-36) U/L Alkaline Phosphatase 311 H (38-126) U/L Total Protein 4.0 L (6.3-8.2) g/dL Albumin 1.7 L (3.5-5.0) g/dL 08/15/22 Range/Units 08:15 WBC 16.2 H (3.8-10.6) k/uL RBC 2.95 L (3.80-5.40) m/uL Hgb 7.7 L (11.4-16.0) gm/dL Hct 25.4 L (34.0-46.0) % MCHC 30.2 L (31.0-37.0) g/dL RDW 16.7 H (11.5-15.5) % Neutrophils # 13.9 H (1.3-7.7) k/uL ABG pH (7.35-7.45) ABG HCO3 (21-25) mmol/L ABG O2 Saturation (94-97) % Chloride (98-107) mmol/L Carbon Dioxide (22-30) mmol/L BUN (7-17) mg/dL Creatinine (0.52-1.04) mg/dL Glucose (74-99) mg/dL POC Glucose (mg/dL) (70-110) mg/dL Calcium (8.4-10.2) mg/dL AST (14-36) U/L Alkaline Phosphatase (38-126) U/L Total Protein (6.3-8.2) g/dL Albumin (3.5-5.0) g/dL Microbiology - Last 24 Hours (Table) 08/08/22 13:30 Blood Culture Gram Stain - Preliminary Blood Blood Culture - Preliminary Anaerobic Gm Negative Bacilli 08/10/22 17:00 Blood Culture - Preliminary Blood No Growth after 96 hours 08/09/22 14:19 Blood Culture - Preliminary Blood No Growth after 120 hours 08/08/22 13:00 Blood Culture - Final Blood No Growth after 144 hours 08/11/22 16:05 Blood Culture Gram Stain - Final Blood Blood Culture - Final Ange albicans Assessment and Plan (1) Sepsis Current Visit: Yes Status: Acute Code(s): A41.9 - SEPSIS, UNSPECIFIED ORGANISM SNOMED Code(s): 13170675 (2) UTI (urinary tract infection) Current Visit: No Status: Acute Code(s): N39.0 - URINARY TRACT INFECTION, SITE NOT SPECIFIED SNOMED Code(s): 61426287 Plan: 1patient with sepsis/septic shock in this patient is in the hospital with syncopal episode of weakness patient is now intubated on the vent and requiring high dose pressor support to maintain her blood pressure, the patient is growing gram-negative bacilli in the blood could be related to the urine as she is growing gram-negative as well as enterococcus in the urine versus related to the right lower lobe pneumonia and now there is suspicious for possible abdominal source 2 urine culture did grew drug resistant Pseudomonas , blood culture is growing gram-negative which has been identified as anaerobic gram-negative bacilli, and repeat blood culture is growing yeast likely GI source, 4-patient to continue with Zerbexa, and Eraxis , keeping in mind the patient did have a new fever we will repeat a blood culture sputum and UA Time with Patient: Less than 30
--- NOTE | 2022-08-16 21:48 | P.PN ---
Subjective Progress Note Date: 08/16/22 Principal diagnosis: Sepsis/septic shock Patient is a 87-year-old female with multiple comorbidities presented to the hospital with a syncopal episode weakness subsequently hypotension, sepsis requiring transfer to the ICU and intubation on the vent. On today's evaluation that is 08/16/2022, the patient is afebrile this morning, the patient is requiring pressor support to maintain her blood pressure, the patient FiO2 is currently stable at 40 %, no significant purulent secretions through the ET or any diarrhea has been reported Objective - Vital Signs Vital signs: Vital Signs Temp 98.3 F 08/16/22 12:00 Pulse 129 H 08/16/22 12:00 Resp 18 08/16/22 12:00 BP 125/60 08/14/22 01:30 Pulse Ox 97 08/16/22 12:00 FiO2 40 08/16/22 12:00 Intake & Output 08/15/22 08/16/22 08/16/22 18:59 06:59 18:59 Intake Total 821.372 279.944 1617.808 Output Total 1540 1035 385 Balance -718.628 -111.564 749.808 Weight 125 kg 120.7 kg 120.7 kg Intake: IV 156 156 338 0.9% @ KVO 120 120 120 Calcium Gluconate in NaCl 100 1 gm In Saline 1 100ml. bag @ 100 mls/hr IVPB ONCE [facility] Rx#:[id number] Potassium Chloride 20 meq 100 In Water For Injection 1 100ml.bag @ 50 mls/hr IVPB Q2H [facility] Rx#: [id number] Pressure Bag 36 36 18 Intake, IV Titration 635.372 617.436 796.808 Amount Amiodarone 450 mg In 182.504 Dextrose 5% in Water 250 ml @ 0.5 MG/MIN 16.667 mls/hr IV .Q15H [facility] Rx#: [id number] Calcium Gluconate in NaCl 100 1 gm In Saline 1 100ml. bag @ 100 mls/hr IVPB ONCE [facility] Rx#:[id number] Calcium Gluconate in NaCl 300 2 gm In Saline 1 100ml. bag @ 100 mls/hr IVPB ONCE [facility] Rx#:[id number] Ceftolozane/Tazobactam 0. 100 100 75 gm In Sodium Chloride 0.9% 100 ml @ 100 mls/hr IV Q8HR [facility] Rx#:[id number] Norepinephrine 32 mg In 109.632 77.663 47.431 Sodium Chloride 0.9% 218 ml @ 0.5 MCG/KG/MIN 25. 547 mls/hr IV .Q9H48M [facility] Rx#:[id number] Potassium Chloride 20 meq 100 In Water For Injection 1 100ml.bag @ 50 mls/hr IVPB ONCE [facility] Rx#: [id number] Potassium Chloride 20 meq 300 In Water For Injection 1 100ml.bag @ 50 mls/hr IVPB Q2H [facility] Rx#: [id number] Vasopressin 60 unit In 125.052 Sodium Chloride 0.9% 150 ml @ 0.04 UNITS/MIN 6.12 mls/hr IV .Q24H [facility] Rx#: [id number] propofoL 1,000 mg In 225.740 232.217 49.377 Empty Bag 1 bag @ 15 MCG/ KG/MIN 9.81 mls/hr IV . [id number] [facility] Rx#:[id number] Tube Feeding 30 Other 150 Output: Gastric Drainage 800 Urine 740 1035 385 Other: Voiding Method Indwelling Catheter Indwelling Catheter Indwelling Catheter # Bowel Movements 0 ABP, PAP, CO, CI - Last Documented Arterial Blood Pressure 115/48 - Exam GENERAL DESCRIPTION: An elderly female intubated on the vent RESPIRATORY SYSTEM: Unlabored breathing , decreased breath sounds at bases HEART: S1 S2 regular rate and rhythm , ABDOMEN: Soft , no tenderness EXTREMITIES: Lower extremity swelling no redness - Labs CBC & Chem 7: 08/16/22 04:15 08/16/22 04:15 Labs: Abnormal Lab Results - Last 24 Hours (Table) 08/15/22 08/15/22 08/16/22 Range/Units 04:56 15:30 04:15 WBC (3.8-10.6) k/uL RBC (3.80-5.40) m/uL Hgb (11.4-16.0) gm/dL Hct (34.0-46.0) % MCHC (31.0-37.0) g/dL RDW (11.5-15.5) % Neutrophils # (1.3-7.7) k/uL ABG O2 Saturation (94-97) % Sodium (137-145) mmol/L Chloride (98-107) mmol/L Carbon Dioxide (22-30) mmol/L BUN (7-17) mg/dL Creatinine (0.52-1.04) mg/dL Glucose (74-99) mg/dL POC Glucose (mg/dL) (70-110) mg/dL Calcium (8.4-10.2) mg/dL Phosphorus (2.5-4.5) mg/dL AST (14-36) U/L Alkaline Phosphatase (38-126) U/L C-Reactive Protein (<1.0) mg/dL Total Protein (6.3-8.2) g/dL Albumin (3.5-5.0) g/dL Vitamin D 25-Hydroxy 8.1 L (30.0-100.0) ng/mL Procalcitonin 1.71 H (0.02-0.09) ng/mL Urine Appearance Cloudy H (Clear) Urine Protein 1+ H (Negative) Urine Blood Large H (Negative) Urine WBC 6 H (0-5) /hpf Urine Bacteria Rare H (None) /hpf Urine Mucus Rare H (None) /hpf 08/16/22 08/16/22 08/16/22 Range/Units 04:15 04:15 05:41 WBC 20.2 H (3.8-10.6) k/uL RBC 3.07 L (3.80-5.40) m/uL Hgb 7.8 L (11.4-16.0) gm/dL Hct 26.3 L (34.0-46.0) % MCHC 29.6 L (31.0-37.0) g/dL RDW 16.8 H (11.5-15.5) % Neutrophils # 17.5 H (1.3-7.7) k/uL ABG O2 Saturation 97.8 H (94-97) % Sodium 147 H (137-145) mmol/L Chloride 119 H (98-107) mmol/L Carbon Dioxide 21 L (22-30) mmol/L BUN 59 H (7-17) mg/dL Creatinine 1.59 H (0.52-1.04) mg/dL Glucose 103 H (74-99) mg/dL POC Glucose (mg/dL) (70-110) mg/dL Calcium 6.7 L (8.4-10.2) mg/dL Phosphorus 4.8 H (2.5-4.5) mg/dL AST 89 H (14-36) U/L Alkaline Phosphatase 290 H (38-126) U/L C-Reactive Protein 50.4 H (<1.0) mg/dL Total Protein 4.2 L (6.3-8.2) g/dL Albumin 1.7 L (3.5-5.0) g/dL Vitamin D 25-Hydroxy (30.0-100.0) ng/mL Procalcitonin (0.02-0.09) ng/mL Urine Appearance (Clear) Urine Protein (Negative) Urine Blood (Negative) Urine WBC (0-5) /hpf Urine Bacteria (None) /hpf Urine Mucus (None) /hpf 08/16/22 08/16/22 Range/Units 05:42 11:23 WBC (3.8-10.6) k/uL RBC (3.80-5.40) m/uL Hgb (11.4-16.0) gm/dL Hct (34.0-46.0) % MCHC (31.0-37.0) g/dL RDW (11.5-15.5) % Neutrophils # (1.3-7.7) k/uL ABG O2 Saturation (94-97) % Sodium (137-145) mmol/L Chloride (98-107) mmol/L Carbon Dioxide (22-30) mmol/L BUN (7-17) mg/dL Creatinine (0.52-1.04) mg/dL Glucose (74-99) mg/dL POC Glucose (mg/dL) 113 H 137 H (70-110) mg/dL Calcium (8.4-10.2) mg/dL Phosphorus (2.5-4.5) mg/dL AST (14-36) U/L Alkaline Phosphatase (38-126) U/L C-Reactive Protein (<1.0) mg/dL Total Protein (6.3-8.2) g/dL Albumin (3.5-5.0) g/dL Vitamin D 25-Hydroxy (30.0-100.0) ng/mL Procalcitonin (0.02-0.09) ng/mL Urine Appearance (Clear) Urine Protein (Negative) Urine Blood (Negative) Urine WBC (0-5) /hpf Urine Bacteria (None) /hpf Urine Mucus (None) /hpf Microbiology - Last 24 Hours (Table) 08/10/22 17:00 Blood Culture - Preliminary Blood No Growth after 120 hours 08/14/22 15:00 Blood Culture - Preliminary Blood No Growth after 24 hours 08/09/22 14:19 Blood Culture - Final Blood No Growth after 144 hours 08/08/22 13:30 Blood Culture Gram Stain - Preliminary Blood Blood Culture - Preliminary Anaerobic Gm Negative Bacilli Assessment and Plan (1) Sepsis Current Visit: Yes Status: Acute Code(s): A41.9 - SEPSIS, UNSPECIFIED ORGANISM SNOMED Code(s): 12691794 (2) UTI (urinary tract infection) Current Visit: No Status: Acute Code(s): N39.0 - URINARY TRACT INFECTION, SITE NOT SPECIFIED SNOMED Code(s): 41795198 Plan: 1patient with sepsis/septic shock in this patient is in the hospital with syncopal episode of weakness patient is now intubated on the vent and requiring high dose pressor support to maintain her blood pressure, the patient is growing gram-negative bacilli in the blood could be related to the urine as she is growing gram-negative as well as enterococcus in the urine versus related to the right lower lobe pneumonia and now there is suspicious for possible abdominal source 2 urine culture did grew drug resistant Pseudomonas , blood culture is growing gram-negative which has been identified as anaerobic gram-negative bacilli, and repeat blood culture is growing yeast likely GI source, 3she did have a new fever and worsening of the white count repeat UA has been negative cultures are pending may benefit from increasing abdominal pelvis to rule out intra-abdominal source 4-patient to continue with Zerbexa and Eraxis , and monitor clinical course closely Family the bedside questions were answered Time with Patient: Less than 30
[2022-08-16 23:38] LABS: Glucose,Whole Blood 237 mg/dL (70-110)
[2022-08-17] MEDS: IPRATROPIUM-ALBUTEROL 3 ML NEB INHALATION SCH ×5 (03:22→20:52)
[2022-08-17 04:14] LABS: Anisocytosis Slight; HCT 24.4 % (34.0-46.0); HGB 7.3 gm/dL (11.4-16.0); Hypochromasia Marked; MCH 26.1 pg (25.0-35.0); MCHC 29.8 g/dL (31.0-37.0); MCV 87.7 fL (80.0-100.0); Mean Platelet Volume 8.7; Platelet Count 283 k/uL (150-450); RBC 2.79 m/uL (3.80-5.40); RDW 16.6 % (11.5-15.5); WBC 19.7 k/uL (3.8-10.6)
[2022-08-17 05:24] LABS: ABG Base Excess -5.4 mmol/L; ABG HCO3 21 mmol/L (21-25); ABG Oxygen Saturation 98.3 % (94-97); ABG PCO2 40 mmHg (35-45); ABG PH 7.32 (7.35-7.45); ABG PO2 115 mmHg (83-108); ABG TCO2 22 mmol/L (19-24)
[2022-08-17 05:39] LABS: Allen Test Performed? no
[2022-08-17 05:54] LABS: Glucose,Whole Blood 260 mg/dL (70-110)
[2022-08-17] MEDS: METOCLOPRAMIDE 5 MG/ML 2 ML VIAL IVP SCH ×4 (05:57→23:42)
[2022-08-17] MEDS: INSULIN ASPART (NovoLOG) 100 UNIT/ML VIAL SQ SCH ×4 (05:57→23:42)
[2022-08-17] MEDS: INSULIN DETEMIR (LEVEMIR) 100 UNIT/ML SYR SQ SCH (06:38)
[2022-08-17 06:59] LABS: Ionized Calcium 4.9 mg/dL (4.5-5.3)
[2022-08-17 07:13] LABS: Albumin 1.7 g/dL (3.5-5.0); Calcium 6.9 mg/dL (8.4-10.2); Magnesium 2.2 mg/dL (1.6-2.3); Phosphorus 4.5 mg/dL (2.5-4.5); Potassium 3.3 mmol/L (3.5-5.1); Total Bilirubin 0.4 mg/dL (0.2-1.3); Total Protein 4.2 g/dL (6.3-8.2)
[2022-08-17] MEDS: BUDESONIDE 1 MG/2 ML NEBU INHALATION SCH ×2 (07:16→20:51)
[2022-08-17] MEDS: FORMOTEROL FUMARATE 20 MCG/2 ML NEBU INHALATION SCH ×2 (07:17→20:51)
--- NOTE | 2022-08-17 07:51 | XR ---
EXAMINATION TYPE: XR chest 1V portable DATE OF EXAM: 08/17/2022 COMPARISON: 08/16/2022 HISTORY: Shortness of breath TECHNIQUE: Single frontal view of the chest is obtained. FINDINGS: Bilateral infiltrate and small pleural effusion stable. ET and NG tube stable. Sizable pne umothorax. Postoperative change left shoulder and overlying cervical spine. Central line stable. Hype rtrophic and degenerative changes spine. IMPRESSION: Persistent bilateral infiltrate and pleural effusion correlate for CHF versus diffuse pn eumonia.
--- NOTE | 2022-08-17 08:51 | P.PN ---
Subjective Progress Note Date: 08/17/22 The patient is an 87-year-old female with multiple comorbid conditions who is currently admitted to the hospital with bowel obstruction and septicemia. Cardiology was consulted for a syncopal episode just prior to admission. Cardiology has signed off but then was again for A. fib with RVR. Dr Dorado re commended amiodarone drip for rate control. The patient has a poor prognosis as she is currently ventilated on vasopressors and is deemed a high risk surgical candidate. Chest xray shows persistent bilateral infiltrates which have not improved. She is unable to tolerate oral tube feedings and continues with a p.m. GENERAL: Ill-appearing, well-nourished and in no acute distress. Sedated on ventilator. NECK: Supple without JVD or thyromegaly. LUNGS: Breath sounds are coarse to auscultation bilaterally. Respiration equal and unlabored. Rhonchi throughout HEART: Irregular rate and rhythm without murmurs, rubs or gallops. S1 and S2 heard. EXTREMITIES: Normal range of motion, moderate pitting edema. No clubbing or cyanosis. TELEMETRY: Atrial fibrillation with rates in the one-teens to 120s LABS: WBC 19.7, hemoglobin 7.3, hematocrit 24.4, platelet 283, sodium 147 potassium 3.3, BUN 57, creatinine 1.58, AST 70, ALT 21 IMPRESSION: A. fib with RVR, currently on amiodarone for rate control Septicemia Acute kidney injury, improving Elevated liver enzymes, improving Acute respiratory failure on vasopressors GI bleeding with acute bowel obstruction PLAN: Continue IV amiodarone for rate control High risk surgical candidate Continue supportive treatment No additional recommendations from the cardiac standpoint I am dictating on behalf of Dr Joaquin Dorado's history/physical and asse ssment/plan. Objective - Vital Signs Vital signs: Vital Signs Temp 99.1 F 08/17/22 04:00 Pulse 124 H 08/17/22 07:55 Resp 34 H 08/17/22 07:00 BP 125/60 08/14/22 01:30 Pulse Ox 98 08/17/22 07:00 FiO2 40 08/17/22 07:16 Intake & Output 08/16/22 08/17/22 08/17/22 18:59 06:59 18:59 Intake Total 2285.425 694.595 13 Output Total 1375 685 65 Balance 910.425 9.595 -52 Weight 120.7 kg 122.3 kg Intake: IV 449 223 13 0.9% @ KVO 210 190 10 Calcium Gluconate in NaCl 100 1 gm In Saline 1 100ml. bag @ 100 mls/hr IVPB ONCE ONE Rx#:[id number] Potassium Chloride 20 meq 100 In Water For Injection 1 100ml.bag @ 50 mls/hr IVPB Q2H [facility] Rx#: [id number] Pressure Bag 39 33 3 Intake, IV Titration 1336.425 291.595 Amount Amiodarone 450 mg In 250 Dextrose 5% in Water 250 ml @ 0.5 MG/MIN 16.667 mls/hr IV .Q15H [facility] Rx#: [id number] Calcium Gluconate in NaCl 300 2 gm In Saline 1 100ml. bag @ 100 mls/hr IVPB ONCE ONE Rx#:[id number] Ceftolozane/Tazobactam 0. 500 75 gm In Sodium Chloride 0.9% 100 ml @ 100 mls/hr IV Q8HR [facility] Rx#:[id number] Norepinephrine 32 mg In 73.216 41.595 Sodium Chloride 0.9% 218 ml @ 0.5 MCG/KG/MIN 25. 547 mls/hr IV .Q9H48M [facility] Rx#:[id number] Potassium Chloride 20 meq 300 In Water For Injection 1 100ml.bag @ 50 mls/hr IVPB Q2H [facility] Rx#: [id number] Vasopressin 60 unit In 113.832 Sodium Chloride 0.9% 150 ml @ 0.04 UNITS/MIN 6.12 mls/hr IV .Q24H [facility] Rx#: [id number] propofoL 1,000 mg In 49.377 0 Empty Bag 1 bag @ 15 MCG/ KG/MIN 9.81 mls/hr IV . [id number] [facility] Rx#:[id number] Other 500 180 Output: Gastric Drainage 550 Urine 825 685 65 Other: Voiding Method Indwelling Catheter Indwelling Catheter ABP, PAP, CO, CI - Last Documented Arterial Blood Pressure 102/39 - Labs CBC & Chem 7: 08/17/22 03:55 08/17/22 03:55 Labs: Abnormal Lab Results - Last 24 Hours (Table) 02/15/23 02/15/23 02/15/23 Range/Units 04:15 11:23 17:06 WBC (3.8-10.6) k/uL RBC (3.80-5.40) m/uL Hgb (11.4-16.0) gm/dL Hct (34.0-46.0) % MCHC (31.0-37.0) g/dL RDW (11.5-15.5) % ABG pH (7.35-7.45) ABG pO2 (83-108) mmHg ABG O2 Saturation (94-97) % Sodium (137-145) mmol/L Potassium (3.5-5.1) mmol/L Chloride (98-107) mmol/L Carbon Dioxide (22-30) mmol/L BUN (7-17) mg/dL Creatinine (0.52-1.04) mg/dL Glucose (74-99) mg/dL POC Glucose (mg/dL) 137 H 199 H (70-110) mg/dL Calcium (8.4-10.2) mg/dL AST (14-36) U/L Alkaline Phosphatase (38-126) U/L Total Protein (6.3-8.2) g/dL Albumin (3.5-5.0) g/dL Procalcitonin 1.71 H (0.02-0.09) ng/mL 08/16/22 08/17/22 08/17/22 Range/Units 23:37 03:55 03:55 WBC 19.7 H (3.8-10.6) k/uL RBC 2.79 L (3.80-5.40) m/uL Hgb 7.3 L (11.4-16.0) gm/dL Hct 24.4 L (34.0-46.0) % MCHC 29.8 L (31.0-37.0) g/dL RDW 16.6 H (11.5-15.5) % ABG pH (7.35-7.45) ABG pO2 (83-108) mmHg ABG O2 Saturation (94-97) % Sodium 147 H (137-145) mmol/L Potassium 3.3 L (3.5-5.1) mmol/L Chloride 121 H (98-107) mmol/L Carbon Dioxide 21 L (22-30) mmol/L BUN 57 H (7-17) mg/dL Creatinine 1.58 H (0.52-1.04) mg/dL Glucose 211 H (74-99) mg/dL POC Glucose (mg/dL) 237 H (70-110) mg/dL Calcium 6.9 L (8.4-10.2) mg/dL AST 70 H (14-36) U/L Alkaline Phosphatase 273 H (38-126) U/L Total Protein 4.2 L (6.3-8.2) g/dL Albumin 1.7 L (3.5-5.0) g/dL Procalcitonin (0.02-0.09) ng/mL 08/17/22 08/17/22 Range/Units 05:22 05:53 WBC (3.8-10.6) k/uL RBC (3.80-5.40) m/uL Hgb (11.4-16.0) gm/dL Hct (34.0-46.0) % MCHC (31.0-37.0) g/dL RDW (11.5-15.5) % ABG pH 7.32 L (7.35-7.45) ABG pO2 115 H (83-108) mmHg ABG O2 Saturation 98.3 H (94-97) % Sodium (137-145) mmol/L Potassium (3.5-5.1) mmol/L Chloride (98-107) mmol/L Carbon Dioxide (22-30) mmol/L BUN (7-17) mg/dL Creatinine (0.52-1.04) mg/dL Glucose (74-99) mg/dL POC Glucose (mg/dL) 260 H (70-110) mg/dL Calcium (8.4-10.2) mg/dL AST (14-36) U/L Alkaline Phosphatase (38-126) U/L Total Protein (6.3-8.2) g/dL Albumin (3.5-5.0) g/dL Procalcitonin (0.02-0.09) ng/mL Microbiology - Last 24 Hours (Table) 08/10/22 17:00 Blood Culture - Final Blood No Growth after 144 hours 08/14/22 15:00 Blood Culture - Preliminary Blood No Growth after 48 hours 08/08/22 13:30 Blood Culture Gram Stain - Final Blood Blood Culture - Final Anaerobic Gm Negative Bacilli
[2022-08-17] MEDS: PANTOPRAZOLE 40 MG/10 ML VIAL IVP SCH (09:08)
[2022-08-17] MEDS: POTASSIUM BICARBONATE/CIT AC 20 MEQ TABLET.EFF NG-TUBE SCH ×3 (09:09→23:42)
[2022-08-17] MEDS: LACTULOSE 20 GM/30 ML CUP PO SCH ×4 (09:09→23:43)
[2022-08-17] MEDS: CHLORHEXIDINE GLUCONATE 15 ML CUP MUCOUS MEM SCH ×2 (09:09→20:56)
[2022-08-17] MEDS: CEFTOLOZANE/TAZOBACTAM 0.75 GM in SODIUM CHLORIDE 0.9% 100 ML IV SCH ×2 (09:09→18:45)
[2022-08-17] MEDS: APIXABAN 5 MG TAB PO SCH ×2 (09:09→20:56)
[2022-08-17] MEDS: TAMSULOSIN 0.4 MG CAP.ER.24H PO SCH (09:09)
[2022-08-17] MEDS: polyethylene glycoL 3350 17 GM POWD.PACK PO SCH ×2 (09:10→20:56)
[2022-08-17] MEDS: ANIDULAFUNGIN 100 MG in SODIUM CHLORIDE 0.9% 100 ML IVPB SCH (09:11)
[2022-08-17] MEDS ORDERED: FUROSEMIDE 10 MG/ML 4 ML VIAL IV STA (10:38)
--- NOTE | 2022-08-17 10:39 | P.PN ---
Subjective Progress Note Date: 08/17/22 cements, hypothyroidism, morbid obesity, multiple orthopedic surgeries, congestive heart failure, diabetes bella, hypertension, hyperlipidemia, osteoarthritis, obstructive sleep apnea on BiPAP, CVA/TIA, oxygen dependent and she was recently discharged from here to [facility] on the [place] and was just home for 3 days when she developed a syncopal episode yesterday. Her that may related to low blood sugar and try to give her oral issues which she vomited. She was brought into the emergency room yesterday. She is seen today in consultation. She remains in the emergency department. She is sitting up in bed. She is basically just moaning and groaning. Her family is at the bedside and provides him permission. She was initially placed on BiPAP. She is currently on 6 L high flow nasal cannula with O2 saturations in the 90s. Afebrile. Somewhat hypotensive. Blood culture reveals no growth to date. Urine culture pending. White count 19.1. Hemoglobin 8.0. Sodium 136. Potassium 4.6. Bicarb 17. BUN 66. Creatinine 2.27. Glucose 145. D-dimer 4.73. ProBNP 426. Troponin negative 1. CT angiogram ruled out pulmonary embolism. There is evidence of cardiomegaly with pulmonary vascular congestion. Scattered airspace opacities more consolidation in the right lung base. Rule out aspiration. Computed tomography scan of the abdomen and pelvis revealed extensive stool burden throughout the colon. 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 Today's chest x-ray shows Nasogastric tube in place. Mild cardiomegaly with bibasilar acute infiltrate and/or ate lectasis. She's been initiated on Symbicort, DuoNeb inhalations, antibiotics in the form of Levaquin. She is anticoagulated with Eliquis. The patient is seen today for per 2022 in follow-up in the intensive care unit. Just after midnight they called an a team on her due to her being obtun ded and hypotensive. She was on the sixth liter Ventimask and they do arterial blood gases that revealed a pO2 of 136, pCO2 31, pH 7.28. She was placed on BiPAP 12/5 and 50% and transferred into the intensive care unit. She received 3 A of sodium bicarb. She has D5W with 3 A of sodium bicarb at 75 ML's per hour. She is on norepinephrine at 27 mcg/m. Vasopressin at 0.03 units per minute. 0.9 normal saline at 20 mL per hour. She did undergo central line placement and arterial line placement. Follow-up blood gases reveal a pO2 of 295. PCO2 of 48. PH is 7.20 100% FiO2. White count 8.7. Hemoglobin 8.2. Platelets 311. Sodium 134. Potassium 6.3. Chloride 110. Bicarb 13. BUN 81. Creatinine 2.68. Glucose 134. Pro-calcitonin 11.0. She remains on bronchodilators. Continued on antibiotics in the form of Levaquin and cefepime. Her culture positive for group D enterococcus and gram-negative bacilli. Blood culture reveals no growth. The patient is seen today 08/11/2022 in follow-up in the intensive care unit. She did have progressive shortness of breath and hypoxemia and was subsequently intubated and placed on mechanical ventilator yesterday. He is currently on assist control mode with a rate of 20, tidal volume 400, FiO2 50% PEEP of 5. Morning blood gases revealed a PaO2 of 99, pCO2 45, pH 7.30 that was on 60% FiO2. She developed atrial fibrillation requiring amiodarone as well. She is hypotensive and requiring norepinephrine at 55 mcg/m, vasopressin at 0.04 units per minute. She remains on D5W with 3 A of bicarbonate 100 ML's per hour. 0.9 normal saline at 20 ML's per hour. She remains on antibiotics in the form of Levaquin, cefepime and daptomycin. Urine culture is positive for Enterococcus faecalis and Pseudomonas aeruginosa. Blood cultures showing no growth. Chest x-ray reveals no significant change. Stable appearance of the cardiomediastinal structures. Pleural effusion unchanged. No change in bibasilar opacities. White count 12.2. Hemoglobin 8.6. Platelets 349. Sodium 139. Potassium 5.1. Bicarb 22. BUN 79. Creatinine 2.74. Glucose 221. Lactic acid 3.2. Calcium 5.8. Cortisol 45. She is continued on DuoNeb inhalations, Pulmicort and Perforomist inhalations. The patient is seen today 08/12/2022 in follow-up in the intensive care unit. She remains intubated on the mechanical ventilator in assist control mode at a r ate of 28, tidal volume 400, FiO2 50% and PEEP of 5. Morning blood gases revealed a pO2 of 115, pCO2 40, pH 7.4. She is currently sedated on propofol at 25 mcg/kg/m. She is on normal saline at 100 mL an hour. She is still requiring pressors in the form of norepinephrine at 55 mcg/m and vasopressin at 0.04 units per minute. She remains on antibiotics in the form of Zerbaxa, Levaquin and daptomycin. Urine culture was positive for Enterococcus faecalis and Pseudomonas aeruginosa. Blood cultures have revealed no growth. Sputum culture pending. White count 6.8. Hemoglobin 8.4. Platelets 268. Sodium 140. Potassium 4.5. BUN 81. Creatinine 2.72. Glucose 162. Calcium 6.0. AST 166. ALT 21. Alk phos 385. Currently in a +3.1 L balance. She is continued on DuoNeb inhalations, Pulmicort and Perforomist inhalations. The patient is seen today 08/13/2022 in follow-up in the intensive care unit. He remains intubated and on mechanical ventilator currently and assist-control mode at a rate of 28, tidal volume 400, FiO2 40% and a PEEP of 5. Morning blood gases revealed a pO2 of 100, pCO2 is 88 and a pH of 7.35. She did have issues with atrial fibrillation and rapid ventricular response and was seen by cardiology earlier this morning who initiated amiodarone bolus and started a drip at 1 mg/m. She has normal saline at 100 MLS per hour. Propofol at 20 mcg/kg/m. Norepinephrine at 36 mcg/m and vasopressin at 0.04 units per minute. Tube feeds are currently on hold per surgery for possible ileus. Chest x-ray shows similar bibasilar airspace opacities. Urine culture positive for Enterococcus faecalis and pseudomonas aeruginosa. Blood culture preliminary positive for anaerobic gram-negative bacilli. Sputum culture hasn't for Ange. White count 9.6. Hemoglobin 8.2. Platelets 244. Sodium 141. Potassium 3.5. Bicarb 20. BUN 75. Creatinine 2.52. Glucose 159. Calcium 5.6. AST 162. ALT 19. Albumin 1.8. Currently in a +312 mL balance. She is currently on bronchodilators. Remains on Eraxis, Zerbaxa, daptomycin. Currently on Lovenox with pharmacy to dose. 08/14/2022, I'm seeing the patient for a follow-up. A very complicated case of a septic shock and 87-year-old female patient weighs currently on mechanical ventilator. The patient has had recurrent [place] tract infection in addition to multitude of comorbidities. She came with a septic shock and suspected bowel obstruction. In summary, the patient came with a septic shock and multisystem organ failure, currently intubated on a mechanical ventilator. This morning, she is on propofol running at 20 mcg/kg/m and she is calm and comfortable in bed at 6 with a mechanical ventilator. She'll assist-control mode of mechanical ventilation at the rate of 28 with a tidal volume of 400 and FiO2 40% with a PEEP of 5. Blood gas from today shows a pH of 7.37 with a pCO2 of 38 and pO2 113. Chest x-ray was also noted from today and there is adequate positioning of the orotracheal tube. There is also persistent bilateral pulmonary infiltrates and small effusions. There may be an underlying component of CHF. Airspace disease is seen in the left perihilar and right lower lobe area. Hemod ynamically, the patient is on pressors and norepinephrine is running at 0.14 mcg/kg/m and she is also on a physiologic dose of vasopressin. She remains active fibrillation and she does have a rapid ventricular response in her heart rate is around 120. She is on a broad-spectrum antibiotic coverage. She is currently on a combination of an axis and Zerbaxa and the cultures that were obtained earlier showed Pseudomonas that was multidrug resistance and Enterococcus faecalis in her urine, there was an anaerobic gram-negative bacillus in the blood, and there was also Ange and the blood. Hence, the antibiotic coverage was adjusted. In terms of her white cell count, she is currently running a white second of 11.2 with a hemoglobin of 7.8 and a platelet count of 229. Electrolytes are stable with a sodium of 144, potassium is at 3.0 with these to be replaced, BUN is at 67 with a creatinine of 2.21. The blood sugars at 147. The patient was taken off the amiodarone drip. The patient is on Levemir insulin 10 units and she is also receiving a sliding scale coverage. She is nothing by mouth. NG tube is in place. Output has been dark gastric material and output is minimal in the order of 500 mL per 24 hours, quite liquidy. Abdomen is soft, the patient was given several enemas without any successful bowel movement. Her previous echocardiogram from March 2022 as shown a moderate degree of aortic stenosis. [place] cath is in place. Urine output is in order of 100 mL an hour and the patient is currently on IV fluids in the form of normal saline at rate of 50 mL an hour. She is afebrile. The patient also has a stage II wound in her coccyx. Fluid balance over the past 24 hours has been in the order of 730 mL. 08/15/2022, the patient remains intubated on a mechanical ventilator and the patient is being seen for a follow-up. Obviously, the patient is still septic, hypotensive, with evidence of multisystem organ failure, still on pressors, still intubated on a mechanical ventilator. As summary, over the past 24 hours, the patient was kept on mechanical ventilator, kept on antibiotics and pressors. This morning, she is sedated with propofol which is running at 30 mcg/kg/m. She is fairly sentences mechanical ventilator. She is on assist-control mode at a rate of 28, tidal volume of 100, FiO2 40% with a PEEP of 5. The peak airway pressure is 25. The blood gas shows a pH of 7.32 with a pCO2 of 39 and a pO2 of 106. Chest x-ray findings of essentially unchanged with some limited airspace disease in the lung bases bilaterally. Orotracheal tube remains in a good location. Hemodynamically, the patient is on IV fluids running at 10 mL an hour of normal saline. She has been in a positive fluid balance. She has been off pressors and the patient is on a physiologic dose of vasopressin and norepinephrine infusion was brought up to 0.2 mcg/kg/m and this is slightly higher compared to yesterday. Review blood cultures were sent yesterday. The patient is still in tachycardia with an underlying rhythm of atrial fibrillation. Her previous echocardiogram from March 2022 was essentially within normal limits. The antibiotic coverage is essentially the same and the patient remains on a combination of Eraxis and Zerbaxa. She is spiking low- grade fevers and her T-max is 100.5. In terms of her feeding, I was again his TPN specially with her systemic fungal anemia. We will give the patient rectal exam and there was no identifiable stool in the rectum. Flat film of the abdomen showed constipation and fecal stasis. Based on that, the patient was given lactulose. She was started on triple feeding again and currently she is on vital AF at the rate of 10 mL an hour. We are going to also start the patient on lactulose and gradually advance her diet. Hoping to have a bowel movement. She had a smear on a bowel movement yesterday. In terms of fluid balance, the patient has been in a positive fluid balance of 250 mL over the pas t 24 hours. The rest of the blood work shows a white cell count of 11.2 from yesterday. Repeat blood work is pending for now in terms of CBC. The sodium is at 145, potassium is at 3.8, serum bicarb is at 19, BUN 61 with a creatinine of 1.7. Total calcium levels at 6.4 and ionized calcium is normal at 4.5. AST is at 106, ALP is at 14, alkaline phosphatase is at 311, serum albumin is at 1.7 with a total protein of 4.0. She has a stage II coccygeal wounds. Condition remains critical. Family is at the bedside. 08/16 2022, remains on a mechanical ventilator and the patient is being seen in follow-up. The patient this morning is on a propofol running at 15 mcg/kg/m. Within the proximal of gradually cutting down the sedation and assessing the patient's underlying mental status. Meanwhile, she remains septic in a mechanical ventilator and she is still hypotensive although her pressor requirements have somewhat improved compared to yesterday. this morning, she did assist-control at the rate of 28, tidal volume of 400, FiO2 40% with a PEEP of 5. The chest x-ray shows essentially no interval change with some limited airspace disease in the lung bases more so on the right. The blood gas showed a pH of 7.36 with a pCO2 of 39 and pO2 of 107. She is quite interested a mechanical ventilator. She is on IV fluids at KVO. She is on norepinephrine at 0.1 for microvascular kilogram per minute and she is also on physiologic dose of vasopressin. Her overall fluid balance since yesterday has been in the order of +254 mL. She is producing adequate amount of urine output and renal function continues to improve. On today's blood work, her sodium level is at 147, potassium level of 3.5, BUN is 59 with a creatinine of 1.59. The white cell count remains elevated at 20.2 with a hemoglobin of 7.8 and a platelet count of 272. Review blood cultures have been sent and the cultures are negative for now and the patient remains on the same antibiotic coverage which included Eraxis and Zerbaxa. . Another issue is constipation and difficulty to feed this patient. I did not favor TPN because of an underlying systemic candidemia. I try to check with either and she had increased residuals. For now, she is on a combination of MiraLAX, lactulose and Reglan. She did have a smear of stool earlier. She hasn't had any significant feeding for the past 5 days. At the same time, cardiac rhythm is atrial fibrillation. The patient remains on amiodarone at 0.5 mg/m. Her rate is ranging between 120 and 1:30. She is maintaining her pressure while being on pressors. 08/17/2022, patient remains intubated on a mechanical ventilator. She was given a sedation holiday yesterday. There was no meaningful neurologic recovery. The patient started breathing above the vent and she was becoming more tachypneic. Based on that, she was restarted at a lower dose of propofol which is currently at 10 mcg/kg/m. She remains intubated on a mechanical ventilator. She did assist-control mode at the rate of 28 with a tidal volume of 400 and FiO2 of 40% with a PEEP of 5. Correction patient is stable with a pO2 115. Her pH is at 7.32 with a pCO2 of 40. Her chest x-ray findings remain essentially unchanged. In terms of her GI tract, were unable to feed the patient and the patient is currently on TPN for nutritional support running at a rate of 30 mL an hour. The patient has been NG tube in place. She is receiving lactulose 4 times a day, IV Reglan and MiraLAX. No bowel movement activity yet. No abdominal distention. No abdominal pain or tenderness. The patient is doing better hemodynamically. She is on less pressors. Her norepinephrine is Down to 0.07 mcg/kg/m that she remains on vasopressin physiologic dose. She remains on the same antibiotic coverage for now. She is afebrile. The white cell count currently is at 19.7 with a hemoglobin of 7.3. Platelet count is at 283. The white cell count is stable compared to yesterday. The cultures from before were noted and the patient has been kept on a combination of Zerbaxa and Eraxis. She remains in atrial fibrillation and the patient remains on amiodarone at a dose of 0.5 mg/m. Heart rate is on the adequate control for now. Meanwhile, her sodium level today is at 147 and the patient continues to receive free water flushes through her OG. Her potassium is at 3.3, he is a 57 with a creatinine of 1.58. Potassium is at 3.3. LFTs are adequate with a drop in the alkaline phosphatase is down to 273, AST is at 70, ALTs at 21. The patient has a blood sugar of 273. The patient has been started on Levemir 10 units daily plus a sliding scale coverage. We will make further adjustments based on her blood sugar control over the next 24 hours. The patient is currently on KVO IV fluids. Fluid balance has been -830 mL over the past 24 hours. No diuretics for now. Objective - Vital Signs Vital signs: Vital Signs Temp 97.9 F 08/17/22 09:30 Pulse 122 H 08/17/22 10:00 Resp 40 H 08/17/22 10:00 BP 125/60 08/14/22 01:30 Pulse Ox 97 08/17/22 10:00 FiO2 40 08/17/22 09:30 Intake & Output 08/16/22 08/17/22 08/17/22 18:59 06:59 18:59 Intake Total 2285.425 694.595 372 Output Total 1375 685 290 Balance 910.425 9.595 82 Weight 120.7 kg 122.3 kg Intake: IV 449 223 272 0.9% @ KVO 210 190 10 Anidulafungin 200 mg In 150 Sodium Chloride 0.9% 200 ml @ 84 mls/hr IVPB ONCE ONE Rx#:[id number] Calcium Gluconate in NaCl 100 1 gm In Saline 1 100ml. bag @ 100 mls/hr IVPB ONCE ONE Rx#:[id number] Ceftazidime/Avibactam 0. 100 94 gm In Sodium Chloride 0.9% 100 ml @ 50 mls/hr IVPB Q24H [facility] Rx#: [id number] Potassium Chloride 20 meq 100 In Water For Injection 1 100ml.bag @ 50 mls/hr IVPB Q2H [facility] Rx#: [id number] Pressure Bag 39 33 12 Intake, IV Titration 1336.425 291.595 Amount Amiodarone 450 mg In 250 Dextrose 5% in Water 250 ml @ 0.5 MG/MIN 16.667 mls/hr IV .Q15H [facility] Rx#: [id number] Calcium Gluconate in NaCl 300 2 gm In Saline 1 100ml. bag @ 100 mls/hr IVPB ONCE ONE Rx#:[id number] Ceftolozane/Tazobactam 0. 500 75 gm In Sodium Chloride 0.9% 100 ml @ 100 mls/hr IV Q8HR [facility] Rx#:[id number] Norepinephrine 32 mg In 73.216 41.595 Sodium Chloride 0.9% 218 ml @ 0.5 MCG/KG/MIN 25. 547 mls/hr IV .Q9H48M [facility] Rx#:[id number] Potassium Chloride 20 meq 300 In Water For Injection 1 100ml.bag @ 50 mls/hr IVPB Q2H [facility] Rx#: [id number] Vasopressin 60 unit In 113.832 Sodium Chloride 0.9% 150 ml @ 0.04 UNITS/MIN 6.12 mls/hr IV .Q24H [facility] Rx#: [id number] propofoL 1,000 mg In 49.377 0 Empty Bag 1 bag @ 15 MCG/ KG/MIN 9.81 mls/hr IV . [id number] [facility] Rx#:[id number] Other 500 180 100 Output: Gastric Drainage 550 Urine 825 685 290 Other: Voiding Method Indwelling Catheter Indwelling Catheter ABP, PAP, CO, CI - Last Documented Arterial Blood Pressure 106/46 - Exam GENERAL EXAM: Intubated, sedated, 87-year-old morbidly obese female, on 40% FiO2 and a PEEP of 5. HEAD: Normocephalic. EYES: Sluggish reaction of pupils, equal size. NOSE: Nasogastric tube secured in place. Clear with pink turbinates. THROAT: Oral endotracheal tube in place. NECK: No masses, no JVD. CHEST: No chest wall deformity. LUNGS: Equal air entry with crackles in the bilateral bases. CVS: S1 and S2 normal with no audible murmur, irregular rhythm. ABDOMEN: No hepatosplenomegaly, normal bowel sounds, no guarding or rigidity. SPINE: No scoliosis or deformity SKIN: No rashes CENTRAL NERVOUS SYSTEM: Sedated, tone is normal in all 4 extremities. EXTREMITIES: There is 1-2+ peripheral edema. Changes of chronic venous stasis. No clubbing, no cyanosis. Peripheral pulses are intact. - Labs CBC & Chem 7: 08/17/22 03:55 08/17/22 03:55 Labs: Abnormal Lab Results - Last 24 Hours (Table) 08/16/22 08/16/22 08/16/22 Range/Units 11:23 17:06 23:37 WBC (3.8-10.6) k/uL RBC (3.80-5.40) m/uL Hgb (11.4-16.0) gm/dL Hct (34.0-46.0) % MCHC (31.0-37.0) g/dL RDW (11.5-15.5) % ABG pH (7.35-7.45) ABG pO2 (83-108) mmHg ABG O2 Saturation (94-97) % Sodium (137-145) mmol/L Potassium (3.5-5.1) mmol/L Chloride (98-107) mmol/L Carbon Dioxide (22-30) mmol/L BUN (7-17) mg/dL Creatinine (0.52-1.04) mg/dL Glucose (74-99) mg/dL POC Glucose (mg/dL) 137 H 199 H 237 H (70-110) mg/dL Calcium (8.4-10.2) mg/dL AST (14-36) U/L Alkaline Phosphatase (38-126) U/L Total Protein (6.3-8.2) g/dL Albumin (3.5-5.0) g/dL 08/17/22 08/17/22 08/17/22 Range/Units 03:55 03:55 05:22 WBC 19.7 H (3.8-10.6) k/uL RBC 2.79 L (3.80-5.40) m/uL Hgb 7.3 L (11.4-16.0) gm/dL Hct 24.4 L (34.0-46.0) % MCHC 29.8 L (31.0-37.0) g/dL RDW 16.6 H (11.5-15.5) % ABG pH 7.32 L (7.35-7.45) ABG pO2 115 H (83-108) mmHg ABG O2 Saturation 98.3 H (94-97) % Sodium 147 H (137-145) mmol/L Potassium 3.3 L (3.5-5.1) mmol/L Chloride 121 H (98-107) mmol/L Carbon Dioxide 21 L (22-30) mmol/L BUN 57 H (7-17) mg/dL Creatinine 1.58 H (0.52-1.04) mg/dL Glucose 211 H (74-99) mg/dL POC Glucose (mg/dL) (70-110) mg/dL Calcium 6.9 L (8.4-10.2) mg/dL AST 70 H (14-36) U/L Alkaline Phosphatase 273 H (38-126) U/L Total Protein 4.2 L (6.3-8.2) g/dL Albumin 1.7 L (3.5-5.0) g/dL 08/17/22 Range/Units 05:53 WBC (3.8-10.6) k/uL RBC (3.80-5.40) m/uL Hgb (11.4-16.0) gm/dL Hct (34.0-46.0) % MCHC (31.0-37.0) g/dL RDW (11.5-15.5) % ABG pH (7.35-7.45) ABG pO2 (83-108) mmHg ABG O2 Saturation (94-97) % Sodium (137-145) mmol/L Potassium (3.5-5.1) mmol/L Chloride (98-107) mmol/L Carbon Dioxide (22-30) mmol/L BUN (7-17) mg/dL Creatinine (0.52-1.04) mg/dL Glucose (74-99) mg/dL POC Glucose (mg/dL) 260 H (70-110) mg/dL Calcium (8.4-10.2) mg/dL AST (14-36) U/L Alkaline Phosphatase (38-126) U/L Total Protein (6.3-8.2) g/dL Albumin (3.5-5.0) g/dL Microbiology - Last 24 Hours (Table) 08/10/22 17:00 Blood Culture - Final Blood No Growth after 144 hours 08/14/22 15:00 Blood Culture - Preliminary Blood No Growth after 48 hours 08/08/22 13:30 Blood Culture Gram Stain - Final Blood Blood Culture - Final Anaerobic Gm Negative Bacilli Assessment and Plan Plan: Acute on chronic hypoxemic respiratory failure secondary to suspected diastolic congestive heart failure. The patient did deteriorate on 08/10/2022 requiring intubation mechanical ventilatory support. She has a component of CHF and multiple infiltrates bilaterally, as superinfection with a pneumonia cannot be completely ruled out. X-ray findings are the same. Blood gas is adequate for this morning. No major change in her blood gas or chest x-ray on today's evaluation. Overall respiratory status is stable for now. The patient is oxygenating well. Septic shock secondary to above, now requiring pressor support in the form of norepinephrine and vasopressin, still hypotensive, still requiring pressors,, though was recommended antibiotics with a combination of Eraxis and Zerbaxa, afebrile, pressor requirements have dropped since yesterday and no new cultures for now. White cell count is still elevated at 19. urinary tract infection, sepsis. Urine culture positive for Enterococcus faecalis and Pseudomonas aeruginosa Systemic candidiasis with positive culture with Ange Anaerobic gram-negative bacteria in the blood Atrial fibrillation with a rapid ventricular response initiated on amiodarone drip and the patient remains on amiodarone at 0.5 mg/m Chronic constipation with significant stool impaction. Currently on a combination of laxatives including lactulose and MiraLAX. The patient is also on Reglan. Unable to tolerate enteral feeding due to high residuals. Previous history of urinary tract infections History of atrial fibrillation on Eliquis in the outpatient Acute on chronic kidney disease, creatinine peaked 2.77 and the patient's c reatinine continues to improve Recent COVID-19 infection History of valvular heart disease with aortic valve stenosis and preserved LV function, based on an echocardiogram from March 2022 Chronic changes in the right lower lobe with small right pleural effusion Acute on chronic anemia my current hemoglobin 8.2 History of chronic obstructive pulmonary disease History of prior tobacco dependence History of diastolic congestive heart failure History of coronary disease with multiple stent placements History of CVA/TIA History of diabetes mellitus Morbid obesity Hypertension Hyperlipidemia Hypothyroidism Poor overall functional performance based on the above-mentioned multiple comorbidities with recent stay and ECF Plan: Ventilator support, no vent changes will be done for today Continue same antibiotic coverage IV fluids to KVO Lasix 40 mg IV 41 The Sedation and Assess the Patient's Mental Status Start free water at a dose of 200 mL every 4 hours serology Give the patient has sedation holiday Obtain a flat film of the abdomen Continue the lactulose to 4 times a day Continue Reglan Continue MiraLAX Producing adequate amount of urine output Monitor renal function Monitor blood pressure and gradually wean off the pressors if possible, norepinephrine first Continue amiodarone for rate control Lovenox for DVT prophylaxis, nontherapeutic dose, I would suggest stopping this and putting the patient on on Eliquis 5 mg twice a day. Repeat blood cultures were sent and that is also still pending Continue Eraxis/Zerbaxa Continue bronchodilators Overall prognosis remains poor We will continue to follow and make further recommendations based on her clinical status Is extremely critical. Case was discussed with the daughter at the bedside. We'll continue to follow. Evaluation was done >30 min
[2022-08-17] MEDS ORDERED: INSULIN DETEMIR (LEVEMIR) 100 UNIT/ML SYR SQ ONE (11:30)
--- NOTE | 2022-08-17 11:56 | P.PN ---
Subjective This is a 87-year-old morbidly, obese, female, well known to me. She has multiple medical problems including a chronic renal failure, chronic systolic congestive heart failure. I last seen her on August 05, 2022 at [facility] on the [facility]. She was doing fairly well at that time. She was there for rehabilitation. This was her third [facility] visit in the past Several months.Her only complaint with some constipation. She not stool since August 03. She has been hospitalized in the past year nine times including this current visit.She was discharged from [facility] on August 06, 2022. On August 08, 2022 she presented the emergency room via EMS. Her indicates that she went to the bathroom, and, he had found her slumped over in her wheelchair, blue in the face and not breathing well. He had tried to feed her and given her some insulin. SheHer only complaint with some constipation. After patients admission, just after midnight and 18 was called on her and she is going to be attending hypotensive. Choose placement of any mask and BiPAP. Eventually she required intubation. And her about August 11. She's currently in abated and sedated.How to raise tachycardic blood pressure is stable with pressers.She is on aAnidulafungin For positive sputum and blood cultures of yeast. She remains on sodium chloride and potassium chloride IV and is now on tube feeds at 10 ml/hr. Labs for today show a leukocytosis at 16.2 with a left shift 13.9 neutrophils hemoglobin is 7.7. ABGs from this morning show page 7.32 PCO2 of 39 PO and HCO3 a 20.Chemistry is show the normal electrolytes decrease carbon dioxide and 19 GFR is 26. Calcium 6.4. She is receiving a amino acids and D5 through the IV. She has Dulcolax per rectum ordered. She has sheathing calcium gluconate. She remains Zerbaxa for antibiotic coverage.She is receiving Lovenox for anticoagulation and DVT prophylaxis, Levemir insulin along with scale, Levophed for blood pressure control, potassium chloride for hypokalemia. She's being followed by critical care, Nephrology,surgery, Infectious disease and cardiology August 16 2022: She remains intubated in the intensive care unit. Sedation has been discontinued. She remains on pressors of Levophed. The dose of this is been decreased. She did not tolerate tube feeds. Heart rate remains elevated. She is in atrial fibrillation. She is on potassium replacement protocol. Calcium gluconate, amiodarone drip, need to left fungated antifungal medication, ceftolazone/tazobactam for antibiotic coverage for suspected UTI and sepsis, Reglan for her constipation, insulin for her diabetes, Elequis for anticoagulation. Laboratory studies show a leukocytosis at 20.2 with hemoglobin of 70 absolute neutrophils 17.5. ABGs show pH 7.36 PCO2 39 PO2 107. Chemistries slightly altered, GFR is improved, CRP and pro calcitonin elevated. Repeat blood cultures have been negative. She remains on MiraLAX, lactulose and Reglan per critical care for the constipation issues. Calcitonin is improved. Glucose remains well controlled. Critical care planning gradually reducing her pressors as needed. Etiologies following for her A. fib with RVR. He continues to have volvulus. 08/17/2022: Patient remains intubated in the intensive care unit. He remains on norepinephrine and vasopressin for hypotension. Sedation used propofol but will be discontinued soon for a trial ventilator on standby. I discussed her case personally with the firmware engineer. She remains on Levemir insulin 10 units and NovoLog scale every 6 hours. Staff reports increased sugars recently. She continues on naproxen than for anticoagulation, amiodarone for atrial fibrillation with RVR, budesonide for her COPD, Eraxis for candidal infection and Zybrexa for anti-biotic coverage for UTI. Her main some potassium protocol. She is on lactulose and Reglan to help with her obstipation. She is receiving TPN for nutrition. I remains tachycardic, rest her rate somewhat elevated. Blood pressure remained stable. WB Nayla is slightly improved from yesterday, hemoglobin is slightly down from yesterday. Blood gases chemistries reviewed. She remains hypokalemic. Kidney function continues to improve very slowly. Glucose was 260 this morning. Calcium and protein albumin remained low. Her 13 blood cultures remain negative. Her condition is critical care cardiology reviewed. Chest x-ray shows no nipple can't change. Objective - Vital Signs Vital signs: Vital Signs Temp 97.9 F 08/17/22 09:30 Pulse 122 H 08/17/22 11:30 Resp 23 08/17/22 11:30 BP 125/60 08/14/22 01:30 Pulse Ox 94 L 08/17/22 11:30 FiO2 40 08/17/22 09:30 Intake & Output 08/16/22 08/17/22 08/17/22 18:59 06:59 18:59 Intake Total 2285.425 694.595 435 Output Total 1375 685 390 Balance 910.425 9.595 45 Weight 120.7 kg 122.3 kg Intake: IV 449 223 275 0.9% @ KVO 210 190 10 Anidulafungin 200 mg In 150 Sodium Chloride 0.9% 200 ml @ 84 mls/hr IVPB ONCE ONE Rx#:[id number] Calcium Gluconate in NaCl 100 1 gm In Saline 1 100ml. bag @ 100 mls/hr IVPB ONCE ONE Rx#:[id number] Ceftazidime/Avibactam 0. 100 94 gm In Sodium Chloride 0.9% 100 ml @ 50 mls/hr IVPB Q24H [facility] Rx#: [id number] Potassium Chloride 20 meq 100 In Water For Injection 1 100ml.bag @ 50 mls/hr IVPB Q2H [facility] Rx#: [id number] Pressure Bag 39 33 15 Intake, IV Titration 1336.425 291.595 Amount Amiodarone 450 mg In 250 Dextrose 5% in Water 250 ml @ 0.5 MG/MIN 16.667 mls/hr IV .Q15H [facility] Rx#: [id number] Calcium Gluconate in NaCl 300 2 gm In Saline 1 100ml. bag @ 100 mls/hr IVPB ONCE ONE Rx#:[id number] Ceftolozane/Tazobactam 0. 500 75 gm In Sodium Chloride 0.9% 100 ml @ 100 mls/hr IV Q8HR [facility] Rx#:[id number] Norepinephrine 32 mg In 73.216 41.595 Sodium Chloride 0.9% 218 ml @ 0.5 MCG/KG/MIN 25. 547 mls/hr IV .Q9H48M [facility] Rx#:[id number] Potassium Chloride 20 meq 300 In Water For Injection 1 100ml.bag @ 50 mls/hr IVPB Q2H [facility] Rx#: [id number] Vasopressin 60 unit In 113.832 Sodium Chloride 0.9% 150 ml @ 0.04 UNITS/MIN 6.12 mls/hr IV .Q24H [facility] Rx#: [id number] propofoL 1,000 mg In 49.377 0 Empty Bag 1 bag @ 15 MCG/ KG/MIN 9.81 mls/hr IV . [id number] [facility] Rx#:[id number] Other 500 180 160 Output: Gastric Drainage 550 Urine 825 685 390 Other: Voiding Method Indwelling Catheter Indwelling Catheter ABP, PAP, CO, CI - Last Documented Arterial Blood Pressure 111/42 - Exam General: Patient is intubated in ICU, she is currently sedated with propofol. Neck: [No adenopathy.] Cardiac: [Heart regularly irregular, tachycardic. S1/S2 were equal, there is a 1/6 systolic murmur at the right, and left sternal border Lungs: Diminished breath sounds bilaterally scattered rhonchi noted mechanically ventilated Abdomen: Somewhat distended due to her fecal retention. No organomegaly. Bowel sounds presnt and hypoactive in all 4 quadrants. This patient is morbidly obese, mild distention Extremes: Bilateral lower extremity and upper extremity edema is improved. Offloading waffle boots are in place. Skin: Multiple small wounds have bordered foam dressings in place. Neurologic: Patient is sedated and on a ventilatory support Lymphatic: [No adenopathy.] - Labs CBC & Chem 7: 08/17/22 03:55 08/17/22 03:55 Labs: Abnormal Lab Results - Last 24 Hours (Table) 08/16/22 08/16/22 08/17/22 Range/Units 17:06 23:37 03:55 WBC (3.8-10.6) k/uL RBC (3.80-5.40) m/uL Hgb (11.4-16.0) gm/dL Hct (34.0-46.0) % MCHC (31.0-37.0) g/dL RDW (11.5-15.5) % ABG pH (7.35-7.45) ABG pO2 (83-108) mmHg ABG O2 Saturation (94-97) % Sodium (137-145) mmol/L Potassium (3.5-5.1) mmol/L Chloride (98-107) mmol/L Carbon Dioxide (22-30) mmol/L BUN (7-17) mg/dL Creatinine (0.52-1.04) mg/dL Glucose (74-99) mg/dL POC Glucose (mg/dL) 199 H 237 H (70-110) mg/dL Calcium (8.4-10.2) mg/dL AST (14-36) U/L Alkaline Phosphatase (38-126) U/L Total Protein (6.3-8.2) g/dL Albumin (3.5-5.0) g/dL Triglycerides 388.00 H (0.00-149.00) mg/dL 08/17/22 08/17/22 08/17/22 Range/Units 03:55 03:55 05:22 WBC 19.7 H (3.8-10.6) k/uL RBC 2.79 L (3.80-5.40) m/uL Hgb 7.3 L (11.4-16.0) gm/dL Hct 24.4 L (34.0-46.0) % MCHC 29.8 L (31.0-37.0) g/dL RDW 16.6 H (11.5-15.5) % ABG pH 7.32 L (7.35-7.45) ABG pO2 115 H (83-108) mmHg ABG O2 Saturation 98.3 H (94-97) % Sodium 147 H (137-145) mmol/L Potassium 3.3 L (3.5-5.1) mmol/L Chloride 121 H (98-107) mmol/L Carbon Dioxide 21 L (22-30) mmol/L BUN 57 H (7-17) mg/dL Creatinine 1.58 H (0.52-1.04) mg/dL Glucose 211 H (74-99) mg/dL POC Glucose (mg/dL) (70-110) mg/dL Calcium 6.9 L (8.4-10.2) mg/dL AST 70 H (14-36) U/L Alkaline Phosphatase 273 H (38-126) U/L Total Protein 4.2 L (6.3-8.2) g/dL Albumin 1.7 L (3.5-5.0) g/dL Triglycerides (0.00-149.00) mg/dL 08/17/22 Range/Units 05:53 WBC (3.8-10.6) k/uL RBC (3.80-5.40) m/uL Hgb (11.4-16.0) gm/dL Hct (34.0-46.0) % MCHC (31.0-37.0) g/dL RDW (11.5-15.5) % ABG pH (7.35-7.45) ABG pO2 (83-108) mmHg ABG O2 Saturation (94-97) % Sodium (137-145) mmol/L Potassium (3.5-5.1) mmol/L Chloride (98-107) mmol/L Carbon Dioxide (22-30) mmol/L BUN (7-17) mg/dL Creatinine (0.52-1.04) mg/dL Glucose (74-99) mg/dL POC Glucose (mg/dL) 260 H (70-110) mg/dL Calcium (8.4-10.2) mg/dL AST (14-36) U/L Alkaline Phosphatase (38-126) U/L Total Protein (6.3-8.2) g/dL Albumin (3.5-5.0) g/dL Triglycerides (0.00-149.00) mg/dL Microbiology - Last 24 Hours (Table) 08/10/22 17:00 Blood Culture - Final Blood No Growth after 144 hours 08/14/22 15:00 Blood Culture - Preliminary Blood No Growth after 48 hours 08/08/22 13:30 Blood Culture Gram Stain - Final Blood Blood Culture - Final Anaerobic Gm Negative Bacilli Assessment and Plan (1) Sepsis Current Visit: Yes Status: Acute Code(s): A41.9 - SEPSIS, UNSPECIFIED ORGANISM SNOMED Code(s): 69891700 (2) Acute on chronic diastolic (congestive) heart failure Current Visit: No Status: Acute Code(s): I50.33 - ACUTE ON CHRONIC DIASTOLIC (CONGESTIVE) HEART FAILURE SNOMED Code(s): 642522405 (3) Hypokalemia Current Visit: Yes Status: Acute Code(s): E87.6 - HYPOKALEMIA SNOMED Code(s): 30263190 (4) Hypocalcemia Current Visit: Yes Status: Acute Code(s): E83.51 - HYPOCALCEMIA SNOMED Code(s): 5858496 (5) Acute exacerbation of chronic obstructive pulmonary disease Current Visit: Yes Status: Acute Code(s): J44.1 - CHRONIC OBSTRUCTIVE PULMONARY DISEASE W (ACUTE) EXACERBATION SNOMED Code(s): 305340449 (6) Pneumonia Current Visit: Yes Status: Acute Code(s): J18.9 - PNEUMONIA, UNSPECIFIED ORGANISM SNOMED Code(s): 709058961 (7) Acute on chronic renal failure Current Visit: No Status: Acute Code(s): N17.9 - ACUTE KIDNEY FAILURE, UNSPECIFIED; N18.9 - CHRONIC KIDNEY DISEASE, UNSPECIFIED SNOMED Code(s): 226671528 (8) Altered mental status Current Visit: No Status: Acute Code(s): R41.82 - ALTERED MENTAL STATUS, UNSPECIFIED SNOMED Code(s): 724367642 (9) CAD (coronary atherosclerotic disease) Current Visit: No Status: Acute Code(s): I25.10 - ATHSCL HEART DISEASE OF [place] CORONARY ARTERY W/O ANG PCTRS SNOMED Code(s): 750070907 (10) Hypertension Current Visit: No Status: Acute Code(s): I10 - ESSENTIAL (PRIMARY) HYPERTENSION SNOMED Code(s): 64865775 (11) Hypoxia Current Visit: No Status: Acute Code(s): R09.02 - HYPOXEMIA SNOMED Cod e(s): 476164820 (12) Leukocytosis Current Visit: No Status: Acute Code(s): D72.829 - ELEVATED WHITE BLOOD CELL COUNT, UNSPECIFIED SNOMED Code(s): 065614148 (13) watermelon inspector prescription opiate use Current Visit: No Status: Acute Code(s): Z79.891 - INTERMEDIATE (CURRENT) USE OF OPIATE ANALGESIC SNOMED Code(s): 801779238 (14) Type 2 diabetes mellitus without complications Current Visit: No Status: Acute Code(s): E11.9 - TYPE 2 DIABETES MELLITUS W ITHOUT COMPLICATIONS SNOMED Code(s): 745954584 (15) UTI (urinary tract infection) Current Visit: No Status: Acute Code(s): N39.0 - URINARY TRACT INFECTION, SITE NOT SPECIFIED SNOMED Code(s): 01330921 (16) Urinary retention Current Visit: No Status: Acute Code(s): R33.9 - RETENTION OF URINE, UNSPECIFIED SNOMED Code(s): 929835358 Plan: I will standby for further recommendations from critical care, infectious disease, Nephrology, general surgery, cardiology, repeat labs in a.m., I spent 10 minutes discussing her care with her family, I'll reevaluate her in the next 24 hours.
[2022-08-17 11:58] LABS: Glucose,Whole Blood 247 mg/dL (70-110)
--- NOTE | 2022-08-17 12:09 | XR ---
EXAMINATION TYPE: XR abdomen 1V DATE OF EXAM: 08/17/2022 COMPARISON: 08/14/2022 HISTORY: Constipation TECHNIQUE: One view abdominal series FINDINGS: The osseous structures are intact. The bowel gas pattern is nonspecific. A left lower lobe infiltrat e. Postsurgical changes right upper quadrant. Vascular calcifications. Severe multilevel degenerative change of the vertebral, postsurgical changes also noted. A prominent bowel loops are seen in the mi d abdomen extending across. IMPRESSION: 1. Nonspecific abdomen with prominent bowel loop in the midabdomen. Partial obstructive pattern or il eus in the differential diagnosis. Small amount of residual retained debris within the right and left colon. 2. Left lower lobe infiltrate.
[2022-08-17] MEDS: AMIODARONE 450 MG in DEXTROSE 5% IN WATER 250 ML IV SCH ×4 (14:35→20:57)
--- NOTE | 2022-08-17 15:23 | P.PN ---
Subjective Progress Note Date: 08/17/22 CHIEF COMPLAINT: Abdominal pain HISTORY OF PRESENT ILLNESS: Patient remains in the ICU intubated and on m echanical ventilation. She is requiring Levophed and vasopressin. They are weaning down on the Levophed. Patient failed sedation holiday yesterday. Patient started on TPN for nutrition support. No bowel movements today. Afebrile. She remains tachycardic. WBC has come down from 20.2 -19.7 Hgb 7.3 platelets 283 sodium 147 potassium 3.3 creatinine 1.58 PHYSICAL EXAM: VITAL SIGNS: Reviewed GENERAL: no acute distress. Head is atraumatic, normocephalic. No nasal drainage. NECK: Supple without lymphadenopathy. CHEST: Non-labored respirations and equal bilateral excursions. CARDIOVASCULAR: Palpable 2+ radial pulses. ABDOMEN: Soft. distended. MUSCULOSKELETAL: No clubbing or cyanosis. ASSESSMENT: 1. Sigmoid volvulus 2. Constipation 3. UTI with sepsis 4. Syncopal episode 5. Lactic acidosis 6. Acute on chronic kidney disease 7. History of atrial fibrillation 8. History of CVA 9. Hypokalemia 10. Hypocalcemia 11. Blood culture with yeast PLAN: -No surgical intervention planned -Patient is considered high risk for surgical intervention -Continue conservative management -Continue supportive care -Agree with laxatives and Reglan -Potassium being replaced Physician Power Screwdriver Operator note has been reviewed by physician. Signing provider agrees with the documented findings, assessment, and plan of care. Objective - Vital Signs Vital signs: Vital Signs Temp 97.7 F 08/17/22 12:00 Pulse 115 H 08/17/22 15:00 Resp 30 H 08/17/22 15:00 BP 125/60 08/14/22 01:30 Pulse Ox 99 08/17/22 15:00 FiO2 40 08/17/22 12:00 Intake & Output 08/16/22 08/17/22 08/17/22 18:59 06:59 18:59 Intake Total 2285.425 694.595 602.015 Output Total 1738 476 5453 Balance 910.425 9.595 -987.985 Weight 120.7 kg 122.3 kg Intake: IV 449 223 327 0.9% @ KVO 210 190 50 Anidulafungin 200 mg In 150 Sodium Chloride 0.9% 200 ml @ 84 mls/hr IVPB ONCE ONE Rx#:[id number] Calcium Gluconate in NaCl 100 1 gm In Saline 1 100ml. bag @ 100 mls/hr IVPB ONCE ONE Rx#:[id number] Ceftazidime/Avibactam 0. 100 94 gm In Sodium Chloride 0.9% 100 ml @ 50 mls/hr IVPB Q24H [facility] Rx#: [id number] Potassium Chloride 20 meq 100 In Water For Injection 1 100ml.bag @ 50 mls/hr IVPB Q2H [facility] Rx#: [id number] Pressure Bag 39 33 27 Intake, IV Titration 1336.425 291.595 15.015 Amount Amiodarone 450 mg In 250 Dextrose 5% in Water 250 ml @ 0.5 MG/MIN 16.667 mls/hr IV .Q15H [facility] Rx#: [id number] Calcium Gluconate in NaCl 300 2 gm In Saline 1 100ml. bag @ 100 mls/hr IVPB ONCE ONE Rx#:[id number] Ceftolozane/Tazobactam 0. 500 75 gm In Sodium Chloride 0.9% 100 ml @ 100 mls/hr IV Q8HR [facility] Rx#:[id number] Norepinephrine 32 mg In 73.216 41.595 15.015 Sodium Chloride 0.9% 218 ml @ 0.5 MCG/KG/MIN 25. 547 mls/hr IV .Q9H48M [facility] Rx#:[id number] Potassium Chloride 20 meq 300 In Water For Injection 1 100ml.bag @ 50 mls/hr IVPB Q2H [facility] Rx#: [id number] Vasopressin 60 unit In 113.832 Sodium Chloride 0.9% 150 ml @ 0.04 UNITS/MIN 6.12 mls/hr IV .Q24H [facility] Rx#: [id number] propofoL 1,000 mg In 49.377 0 Empty Bag 1 bag @ 15 MCG/ KG/MIN 9.81 mls/hr IV . [id number] [facility] Rx#:[id number] Other 500 180 260 Output: Gastric Drainage 550 Urine 094 844 6559 Other: Voiding Method Indwelling Catheter Indwelling Catheter Indwelling Catheter # Bowel Movements 1 ABP, PAP, CO, CI - Last Documented Arterial Blood Pressure 116/46 - Labs CBC & Chem 7: 08/17/22 03:55 08/17/22 03:55 Labs: Abnormal Lab Results - Last 24 Hours (Table) 08/16/22 08/16/22 08/17/22 Range/Units 17:06 23:37 03:55 WBC (3.8-10.6) k/uL RBC (3.80-5.40) m/uL Hgb (11.4-16.0) gm/dL Hct (34.0-46.0) % MCHC (31.0-37.0) g/dL RDW (11.5-15.5) % ABG pH (7.35-7.45) ABG pO2 (83-108) mmHg ABG O2 Saturation (94-97) % Sodium (137-145) mmol/L Potassium (3.5-5.1) mmol/L Chloride (98-107) mmol/L Carbon Dioxide (22-30) mmol/L BUN (7-17) mg/dL Creatinine (0.52-1.04) mg/dL Glucose (74-99) mg/dL POC Glucose (mg/dL) 199 H 237 H (70-110) mg/dL Calcium (8.4-10.2) mg/dL AST (14-36) U/L Alkaline Phosphatase (38-126) U/L Total Protein (6.3-8.2) g/dL Albumin (3.5-5.0) g/dL Triglycerides 388.00 H (0.00-149.00) mg/dL 08/17/22 08/17/22 08/17/22 Range/Units 03:55 03:55 05:22 WBC 19.7 H (3.8-10.6) k/uL RBC 2.79 L (3.80-5.40) m/uL Hgb 7.3 L (11.4-16.0) gm/dL Hct 24.4 L (34.0-46.0) % MCHC 29.8 L (31.0-37.0) g/dL RDW 16.6 H (11.5-15.5) % ABG pH 7.32 L (7.35-7.45) ABG pO2 115 H (83-108) mmHg ABG O2 Saturation 98.3 H (94-97) % Sodium 147 H (137-145) mmol/L Potassium 3.3 L (3.5-5.1) mmol/L Chloride 121 H (98-107) mmol/L Carbon Dioxide 21 L (22-30) mmol/L BUN 57 H (7-17) mg/dL Creatinine 1.58 H (0.52-1.04) mg/dL Glucose 211 H (74-99) mg/dL POC Glucose (mg/dL) (70-110) mg/dL Calcium 6.9 L (8.4-10.2) mg/dL AST 70 H (14-36) U/L Alkaline Phosphatase 273 H (38-126) U/L Total Protein 4.2 L (6.3-8.2) g/dL Albumin 1.7 L (3.5-5.0) g/dL Triglycerides (0.00-149.00) mg/dL 08/17/22 08/17/22 Range/Units 05:53 11:56 WBC (3.8-10.6) k/uL RBC (3.80-5.40) m/uL Hgb (11.4-16.0) gm/dL Hct (34.0-46.0) % MCHC (31.0-37.0) g/dL RDW (11.5-15.5) % ABG pH (7.35-7.45) ABG pO2 (83-108) mmHg ABG O2 Saturation (94-97) % Sodium (137-145) mmol/L Potassium (3.5-5.1) mmol/L Chloride (98-107) mmol/L Carbon Dioxide (22-30) mmol/L BUN (7-17) mg/dL Creatinine (0.52-1.04) mg/dL Glucose (74-99) mg/dL POC Glucose (mg/dL) 260 H 247 H (70-110) mg/dL Calcium (8.4-10.2) mg/dL AST (14-36) U/L Alkaline Phosphatase (38-126) U/L Total Protein (6.3-8.2) g/dL Albumin (3.5-5.0) g/dL Triglycerides (0.00-149.00) mg/dL Microbiology - Last 24 Hours (Table) 08/10/22 17:00 Blood Culture - Final Blood No Growth after 144 hours 08/14/22 15:00 Blood Culture - Preliminary Blood No Growth after 48 hours 08/08/22 13:30 Blood Culture Gram Stain - Final Blood Blood Culture - Final Anaerobic Gm Negative Bacilli
[2022-08-17] MEDS: VASOPRESSIN 60 UNIT in SODIUM CHLORIDE 0.9% 150 ML IV SCH (15:24)
[2022-08-17] MEDS: NOREPINEPHRINE 32 MG in SODIUM CHLORIDE 0.9% 218 ML IV SCH ×2 (15:26→18:51)
[2022-08-17] MEDS: 1: MVI, ADULT NO.4 WITH VIT K 10 ML, TRACE (CONC-1ML/DOSE) 1 ML, POTASSIUM ACETATE 20 ME IV SCH ×5 (16:18)
[2022-08-17 17:59] LABS: Glucose,Whole Blood 217 mg/dL (70-110)
--- NOTE | 2022-08-17 18:18 | P.PN ---
Subjective Patient is seen for follow-up for acute kidney injury, mostly ATN currently slowly improving. Etiology is sepsis with fungemia and UTI with urine cultures growing Pseudomonas and enterococcus. Patient also has left lower lobe pneumonia. Patient remains on the vent. FiO2 is at 40%. Patient is also maintained on levo fed as well as vasopressin Urine output at 100-1 50 mL an hour. Serum creatinine at 1.5 from peak at 2.7. Sodium was 147. Free water has been added to tube feedings. Had IV lasix this am Objective - Vital Signs Vital signs: Vital Signs Temp 97.4 F L 08/17/22 16:00 Pulse 135 H 08/17/22 16:30 Resp 29 H 08/17/22 16:30 BP 125/60 08/14/22 01:30 Pulse Ox 98 08/17/22 16:30 FiO2 40 08/17/22 16:00 Intake & Output 08/16/22 08/17/22 08/17/22 18:59 06:59 18:59 Intake Total 2285.425 564.028 1689.803 Output Total 5845 101 8026 Balance 910.425 9.595 -785.197 Weight 120.7 kg 122.3 kg Intake: IV 449 223 340 0.9% @ KVO 210 190 60 Anidulafungin 200 mg In 150 Sodium Chloride 0.9% 200 ml @ 84 mls/hr IVPB ONCE ONE Rx#:[id number] Calcium Gluconate in NaCl 100 1 gm In Saline 1 100ml. bag @ 100 mls/hr IVPB ONCE ONE Rx#:[id number] Ceftazidime/Avibactam 0. 100 94 gm In Sodium Chloride 0.9% 100 ml @ 50 mls/hr IVPB Q24H [facility] Rx#: [id number] Potassium Chloride 20 meq 100 In Water For Injection 1 100ml.bag @ 50 mls/hr IVPB Q2H [facility] Rx#: [id number] Pressure Bag 39 33 30 Intake, IV Titration 1336.425 291.595 479.803 Amount Amiodarone 450 mg In 250 Dextrose 5% in Water 250 ml @ 0.5 MG/MIN 16.667 mls/hr IV .Q15H [facility] Rx#: [id number] Amiodarone 450 mg In 250 Dextrose 5% in Water 250 ml @ 0.5 MG/MIN 16.667 mls/hr IV .Q15H [facility] Rx#: [id number] Calcium Gluconate in NaCl 300 2 gm In Saline 1 100ml. bag @ 100 mls/hr IVPB ONCE ONE Rx#:[id number] Ceftolozane/Tazobactam 0. 500 75 gm In Sodium Chloride 0.9% 100 ml @ 100 mls/hr IV Q8HR [facility] Rx#:[id number] Norepinephrine 32 mg In 73.216 41.595 15.015 Sodium Chloride 0.9% 218 ml @ 0.5 MCG/KG/MIN 25. 547 mls/hr IV .Q9H48M [facility] Rx#:[id number] Potassium Chloride 20 meq 300 In Water For Injection 1 100ml.bag @ 50 mls/hr IVPB Q2H [facility] Rx#: [id number] Vasopressin 60 unit In 113.832 150.042 Sodium Chloride 0.9% 150 ml @ 0.04 UNITS/MIN 6.12 mls/hr IV .Q24H [facility] Rx#: [id number] propofoL 1,000 mg In 49.377 0 64.746 Empty Bag 1 bag @ 15 MCG/ KG/MIN 9.81 mls/hr IV . [id number] [facility] Rx#:[id number] Other 500 180 260 Output: Gastric Drainage 550 Urine 073 131 5612 Other: Voiding Method Indwelling Catheter Indwelling Catheter Indwelling Catheter # Bowel Movements 1 ABP, PAP, CO, CI - Last Documented Arterial Blood Pressure 101/44 - Exam Patient is sedated and on the vent. Examination of the heart S1 and S2 Examination of the lungs bilateral breath sounds are heard Abdomen is soft distended obese Examination lower extremity shows edema 2+ bilaterally upper and lower extremities COBBLER MCKAY exam cannot be performed - Labs CBC & Chem 7: 08/17/22 03:55 08/17/22 03:55 Labs: Abnormal Lab Results - Last 24 Hours (Table) 08/16/22 08/17/22 08/17/22 Range/Units 23:37 03:55 03:55 WBC (3.8-10.6) k/uL RBC (3.80-5.40) m/uL Hgb (11.4-16.0) gm/dL Hct (34.0-46.0) % MCHC (31.0-37.0) g/dL RDW (11.5-15.5) % ABG pH (7.35-7.45) ABG pO2 (83-108) mmHg ABG O2 Saturation (94-97) % Sodium 147 H (137-145) mmol/L Potassium 3.3 L (3.5-5.1) mmol/L Chloride 121 H (98-107) mmol/L Carbon Dioxide 21 L (22-30) mmol/L BUN 57 H (7-17) mg/dL Creatinine 1.58 H (0.52-1.04) mg/dL Glucose 211 H (74-99) mg/dL POC Glucose (mg/dL) 237 H (70-110) mg/dL Calcium 6.9 L (8.4-10.2) mg/dL AST 70 H (14-36) U/L Alkaline Phosphatase 273 H (38-126) U/L Total Protein 4.2 L (6.3-8.2) g/dL Albumin 1.7 L (3.5-5.0) g/dL Triglycerides 388.00 H (0.00-149.00) mg/dL 08/17/22 08/17/22 08/17/22 Range/Units 03:55 05:22 05:53 WBC 19.7 H (3.8-10.6) k/uL RBC 2.79 L (3.80-5.40) m/uL Hgb 7.3 L (11.4-16.0) gm/dL Hct 24.4 L (34.0-46.0) % MCHC 29.8 L (31.0-37.0) g/dL RDW 16.6 H (11.5-15.5) % ABG pH 7.32 L (7.35-7.45) ABG pO2 115 H (83-108) mmHg ABG O2 Saturation 98.3 H (94-97) % Sodium (137-145) mmol/L Potassium (3.5-5.1) mmol/L Chloride (98-107) mmol/L Carbon Dioxide (22-30) mmol/L BUN (7-17) mg/dL Creatinine (0.52-1.04) mg/dL Glucose (74-99) mg/dL POC Glucose (mg/dL) 260 H (70-110) mg/dL Calcium (8.4-10.2) mg/dL AST (14-36) U/L Alkaline Phosphatase (38-126) U/L Total Protein (6.3-8.2) g/dL Albumin (3.5-5.0) g/dL Triglycerides (0.00-149.00) mg/dL 08/17/22 08/17/22 Range/Units 11:56 17:58 WBC (3.8-10.6) k/uL RBC (3.80-5.40) m/uL Hgb (11.4-16.0) gm/dL Hct (34.0-46.0) % MCHC (31.0-37.0) g/dL RDW (11.5-15.5) % ABG pH (7.35-7.45) ABG pO2 (83-108) mmHg ABG O2 Saturation (94-97) % Sodium (137-145) mmol/L Potassium (3.5-5.1) mmol/L Chloride (98-107) mmol/L Carbon Dioxide (22-30) mmol/L BUN (7-17) mg/dL Creatinine (0.52-1.04) mg/dL Glucose (74-99) mg/dL POC Glucose (mg/dL) 247 H 217 H (70-110) mg/dL Calcium (8.4-10.2) mg/dL AST (14-36) U/L Alkaline Phosphatase (38-126) U/L Total Protein (6.3-8.2) g/dL Albumin (3.5-5.0) g/dL Triglycerides (0.00-149.00) mg/dL Microbiology - Last 24 Hours (Table) 08/14/22 15:00 Blood Culture - Preliminary Blood No Growth after 72 hours 08/10/22 17:00 Blood Culture - Final Blood No Growth after 144 hours 08/08/22 13:30 Blood Culture Gram Stain - Final Blood Blood Culture - Final Anaerobic Gm Negative Bacilli Assessment and Plan Assessment: 1. Acute kidney injury secondary to ATN from underlying infection with fungemia and urine tract infection with Pseudomonas and enterococcus. Creatinine is improved this morning from 2.72 mg to 1.59. 2. Hypotension secondary to sepsis, on levo fed and vasopressin 3. Ventilator dependent respiratory failure, stable 40% FiO2 3. Left lower lobe pneumonia 4. UTI with Pseudomonas and enterococcus. 5. Hypocalcemia secondary to acute kidney injury. Severe nutritional vitamin D deficiency noted 6. Elevated liver function tests secondary to sepsis/ hypotension Plan: Replace vitamin D Continue free water
--- NOTE | 2022-08-17 21:47 | P.PN ---
Subjective Progress Note Date: 08/17/22 Principal diagnosis: Sepsis/septic shock Patient is a 87-year-old female with multiple comorbidities presented to the hospital with a syncopal episode weakness subsequently hypotension, sepsis requiring transfer to the ICU and intubation on the vent. On today's evaluation that is 08/17/2022, the patient remains to be afebrile, the patient is requiring pressor support to maintain her blood pressure per the nursing staff, the patient FiO2 is currently stable at 40 %, no significant purulent secretions through the ET , patient did have NG to suction is on TPN and did have a bowel movement today per the nursing staff Objective - Vital Signs Vital signs: Vital Signs Temp 97.9 F 08/17/22 09:30 Pulse 122 H 08/17/22 10:00 Resp 40 H 08/17/22 10:00 BP 125/60 08/14/22 01:30 Pulse Ox 97 08/17/22 10:00 FiO2 40 08/17/22 09:30 Intake & Output 08/16/22 08/17/22 08/17/22 18:59 06:59 18:59 Intake Total 2285.425 694.595 372 Output Total 1375 685 290 Balance 910.425 9.595 82 Weight 120.7 kg 122.3 kg Intake: IV 449 223 272 0.9% @ KVO 210 190 10 Anidulafungin 200 mg In 150 Sodium Chloride 0.9% 200 ml @ 84 mls/hr IVPB ONCE ONE Rx#:[id number] Calcium Gluconate in NaCl 100 1 gm In Saline 1 100ml. bag @ 100 mls/hr IVPB ONCE ONE Rx#:[id number] Ceftazidime/Avibactam 0. 100 94 gm In Sodium Chloride 0.9% 100 ml @ 50 mls/hr IVPB Q24H [facility] Rx#: [id number] Potassium Chloride 20 meq 100 In Water For Injection 1 100ml.bag @ 50 mls/hr IVPB Q2H [facility] Rx#: [id number] Pressure Bag 39 33 12 Intake, IV Titration 1336.425 291.595 Amount Amiodarone 450 mg In 250 Dextrose 5% in Water 250 ml @ 0.5 MG/MIN 16.667 mls/hr IV .Q15H [facility] Rx#: [id number] Calcium Gluconate in NaCl 300 2 gm In Saline 1 100ml. bag @ 100 mls/hr IVPB ONCE ONE Rx#:[id number] Ceftolozane/Tazobactam 0. 500 75 gm In Sodium Chloride 0.9% 100 ml @ 100 mls/hr IV Q8HR [facility] Rx#:[id number] Norepinephrine 32 mg In 73.216 41.595 Sodium Chloride 0.9% 218 ml @ 0.5 MCG/KG/MIN 25. 547 mls/hr IV .Q9H48M [facility] Rx#:[id number] Potassium Chloride 20 meq 300 In Water For Injection 1 100ml.bag @ 50 mls/hr IVPB Q2H [facility] Rx#: [id number] Vasopressin 60 unit In 113.832 Sodium Chloride 0.9% 150 ml @ 0.04 UNITS/MIN 6.12 mls/hr IV .Q24H [facility] Rx#: [id number] propofoL 1,000 mg In 49.377 0 Empty Bag 1 bag @ 15 MCG/ KG/MIN 9.81 mls/hr IV . [id number] [facility] Rx#:[id number] Other 500 180 100 Output: Gastric Drainage 550 Urine 825 685 290 Other: Voiding Method Indwelling Catheter Indwelling Catheter ABP, PAP, CO, CI - Last Documented Arterial Blood Pressure 106/46 - Exam GENERAL DESCRIPTION: An elderly female intubated on the vent RESPIRATORY SYSTEM: Unlabored breathing , decreased breath sounds at bases HEART: S1 S2 regular rate and rhythm , ABDOMEN: Soft , no tenderness EXTREMITIES: Lower extremity swelling no redness - Labs CBC & Chem 7: 08/17/22 03:55 08/17/22 03:55 Labs: Abnormal Lab Results - Last 24 Hours (Table) 08/16/22 08/16/22 08/17/22 Range/Units 17:06 23:37 03:55 WBC (3.8-10.6) k/uL RBC (3.80-5.40) m/uL Hgb (11.4-16.0) gm/dL Hct (34.0-46.0) % MCHC (31.0-37.0) g/dL RDW (11.5-15.5) % ABG pH (7.35-7.45) ABG pO2 (83-108) mmHg ABG O2 Saturation (94-97) % Sodium (137-145) mmol/L Potassium (3.5-5.1) mmol/L Chloride (98-107) mmol/L Carbon Dioxide (22-30) mmol/L BUN (7-17) mg/dL Creatinine (0.52-1.04) mg/dL Glucose (74-99) mg/dL POC Glucose (mg/dL) 199 H 237 H (70-110) mg/dL Calcium (8.4-10.2) mg/dL AST (14-36) U/L Alkaline Phosphatase (38-126) U/L Total Protein (6.3-8.2) g/dL Albumin (3.5-5.0) g/dL Triglycerides 388.00 H (0.00-149.00) mg/dL 08/17/22 08/17/22 08/17/22 Range/Units 03:55 03:55 05:22 WBC 19.7 H (3.8-10.6) k/uL RBC 2.79 L (3.80-5.40) m/uL Hgb 7.3 L (11.4-16.0) gm/dL Hct 24.4 L (34.0-46.0) % MCHC 29.8 L (31.0-37.0) g/dL RDW 16.6 H (11.5-15.5) % ABG pH 7.32 L (7.35-7.45) ABG pO2 115 H (83-108) mmHg ABG O2 Saturation 98.3 H (94-97) % Sodium 147 H (137-145) mmol/L Potassium 3.3 L (3.5-5.1) mmol/L Chloride 121 H (98-107) mmol/L Carbon Dioxide 21 L (22-30) mmol/L BUN 57 H (7-17) mg/dL Creatinine 1.58 H (0.52-1.04) mg/dL Glucose 211 H (74-99) mg/dL POC Glucose (mg/dL) (70-110) mg/dL Calcium 6.9 L (8.4-10.2) mg/dL AST 70 H (14-36) U/L Alkaline Phosphatase 273 H (38-126) U/L Total Protein 4.2 L (6.3-8.2) g/dL Albumin 1.7 L (3.5-5.0) g/dL Triglycerides (0.00-149.00) mg/dL 08/17/22 Range/Units 05:53 WBC (3.8-10.6) k/uL RBC (3.80-5.40) m/uL Hgb (11.4-16.0) gm/dL Hct (34.0-46.0) % MCHC (31.0-37.0) g/dL RDW (11.5-15.5) % ABG pH (7.35-7.45) ABG pO2 (83-108) mmHg ABG O2 Saturation (94-97) % Sodium (137-145) mmol/L Potassium (3.5-5.1) mmol/L Chloride (98-107) mmol/L Carbon Dioxide (22-30) mmol/L BUN (7-17) mg/dL Creatinine (0.52-1.04) mg/dL Glucose (74-99) mg/dL POC Glucose (mg/dL) 260 H (70-110) mg/dL Calcium (8.4-10.2) mg/dL AST (14-36) U/L Alkaline Phosphatase (38-126) U/L Total Protein (6.3-8.2) g/dL Albumin (3.5-5.0) g/dL Triglycerides (0.00-149.00) mg/dL Microbiology - Last 24 Hours (Table) 08/10/22 17:00 Blood Culture - Final Blood No Growth after 144 hours 08/14/22 15:00 Blood Culture - Preliminary Blood No Growth after 48 hours 08/08/22 13:30 Blood Culture Gram Stain - Final Blood Blood Culture - Final Anaerobic Gm Negative Bacilli Assessment and Plan (1) Sepsis Current Visit: Yes Status: Acute Code(s): A41.9 - SEPSIS, UNSPECIFIED ORGANISM SNOMED Code(s): 83611140 (2) UTI (urinary tract infection) Current Visit: No Status: Acute Code(s): N39.0 - URINARY TRACT INFECTION, SITE NOT SPECIFIED SNOMED Code(s): 20421364 Plan: 1patient with sepsis/septic shock in this patient is in the hospital with syncopal episode of weakness patient is now intubated on the vent and requiring high dose pressor support to maintain her blood pressure, the patient is growing gram-negative bacilli in the blood could be related to the urine as she is growing gram-negative as well as enterococcus in the urine versus related to the right lower lobe pneumonia and possible abdominal source 2 urine culture did grew drug resistant Pseudomonas , blood culture is growing gram-negative which has been identified as anaerobic gram-negative bacilli, and repeat blood culture is growing yeast likely GI source, 3 patient to continue with Zerbexa and Eraxis , and monitor clinical course closely Time with Patient: Less than 30
[2022-08-17 23:39] LABS: Glucose,Whole Blood 305 mg/dL (70-110)
[2022-08-18] MEDS ORDERED: POTASSIUM CHLORIDE ER 20 MEQ TAB.ER PO SCH
[2022-08-18] MEDS: CEFTOLOZANE/TAZOBACTAM 0.75 GM in SODIUM CHLORIDE 0.9% 100 ML IV SCH ×3 (00:15→16:50)
[2022-08-18] MEDS: IPRATROPIUM-ALBUTEROL 3 ML NEB INHALATION SCH ×7 (00:46→23:49)
[2022-08-18] MEDS: POTASSIUM BICARBONATE/CIT AC 20 MEQ TABLET.EFF NG-TUBE SCH ×2 (00:52→02:08)
[2022-08-18] MEDS ORDERED: DEXTROSE 5% IN WATER 100 ML with AMIODARONE 150 MG IV ONE (03:05)
[2022-08-18] MEDS: NOREPINEPHRINE 32 MG in SODIUM CHLORIDE 0.9% 218 ML IV SCH ×2 (03:44→16:10)
[2022-08-18 05:13] LABS: Albumin 1.7 g/dL (3.5-5.0); Calcium 7.1 mg/dL (8.4-10.2); Magnesium 1.9 mg/dL (1.6-2.3); Phosphorus 3.2 mg/dL (2.5-4.5); Total Bilirubin 0.4 mg/dL (0.2-1.3); Total Protein 4.4 g/dL (6.3-8.2)
[2022-08-18] MEDS ORDERED: Magnesium Replacement Protocol 1 EACH MISC MISCELLANE PRN (05:44)
[2022-08-18] MEDS ORDERED: MAGNESIUM SULFATE-D5W PMX 1 GM in DEXTROSE/WATER 1 100ML.BAG IVPB ONE (05:44)
[2022-08-18] MEDS: POTASSIUM CHLORIDE 20 MEQ in WATER FOR INJECTION 1 100ML.BAG IVPB SCH ×6 (05:45→21:09)
[2022-08-18 05:50] LABS: Glucose,Whole Blood 337 mg/dL (70-110)
[2022-08-18] MEDS: METOCLOPRAMIDE 5 MG/ML 2 ML VIAL IVP SCH ×3 (05:53→18:21)
[2022-08-18] MEDS: INSULIN ASPART (NovoLOG) 100 UNIT/ML VIAL SQ SCH ×3 (05:53→18:37)
[2022-08-18 05:59] LABS: ABG Base Excess -3.2 mmol/L; ABG HCO3 22 mmol/L (21-25); ABG Oxygen Saturation 96.4 % (94-97); ABG PCO2 40 mmHg (35-45); ABG PH 7.35 (7.35-7.45); ABG PO2 89 mmHg (83-108); ABG TCO2 24 mmol/L (19-24); Allen Test Performed? Yes
[2022-08-18] MEDS: 1: MVI, ADULT NO.4 WITH VIT K 10 ML, TRACE (CONC-1ML/DOSE) 1 ML, POTASSIUM ACETATE 20 ME IV SCH ×10 (06:31→06:45)
[2022-08-18 06:42] LABS: Anisocytosis Slight; Basophils # (A) 0.2 k/uL (0-0.2); Basophils % (A) 1 %; Eosinophils % (A) 0 %; HCT 23.9 % (34.0-46.0); Hypochromasia Marked; Lymphocytes # (A) 0.9 k/uL (1.0-4.8); Lymphocytes % (A) 5 %; MCH 25.4 pg (25.0-35.0); MCHC 29.1 g/dL (31.0-37.0); MCV 87.2 fL (80.0-100.0); Monocytes # (A) 0.8 k/uL (0-1.0); Monocytes % (A) 5 %; Neutrophils # (A) 14.3 k/uL (1.3-7.7); Neutrophils % (A) 87 %; Platelet Count 301 k/uL (150-450); Poikilocytosis Slight; RBC 2.74 m/uL (3.80-5.40); RDW 17.2 % (11.5-15.5); WBC 16.5 k/uL (3.8-10.6)
[2022-08-18] MEDS: INSULIN DETEMIR (LEVEMIR) 100 UNIT/ML SYR SQ SCH (06:48)
[2022-08-18] MEDS: BUDESONIDE 1 MG/2 ML NEBU INHALATION SCH ×2 (08:14→19:08)
[2022-08-18] MEDS: FORMOTEROL FUMARATE 20 MCG/2 ML NEBU INHALATION SCH ×2 (08:14→19:20)
[2022-08-18] MEDS: PANTOPRAZOLE 40 MG/10 ML VIAL IVP SCH (08:30)
[2022-08-18] MEDS: APIXABAN 5 MG TAB PO SCH ×2 (08:30→21:08)
[2022-08-18] MEDS: TAMSULOSIN 0.4 MG CAP.ER.24H PO SCH (08:30)
[2022-08-18] MEDS: polyethylene glycoL 3350 17 GM POWD.PACK PO SCH ×2 (08:30→21:09)
[2022-08-18] MEDS: LACTULOSE 20 GM/30 ML CUP PO SCH ×4 (08:31→21:08)
[2022-08-18] MEDS: CHLORHEXIDINE GLUCONATE 15 ML CUP MUCOUS MEM SCH ×2 (08:31→21:08)
--- NOTE | 2022-08-18 08:55 | P.PN ---
Subjective Progress Note Date: 08/18/22 The patient is an 87-year-old female with multiple comorbid conditions who is currently admitted to the hospital with bowel obstruction and septicemia. Cardiology was consulted for a syncopal episode just prior to admission. Cardiology has signed off but then was again for A. fib with RVR. Dr Dorado re commended amiodarone drip for rate control. The patient has a poor prognosis as she is currently ventilated on vasopressors and is deemed a high risk surgical candidate. Chest xray shows persistent bilateral infiltrates which have not improved. She is unable to tolerate oral tube feedings and continues with parental nutrition. She had episodes of A. fib with RVR overnight. Additional amiodarone bolus had been provided. GENERAL: Ill-appearing, well-nourished and in no acute distress. Sedated on ventilator. NECK: Supple without JVD or thyromegaly. LUNGS: Breath sounds are coarse to auscultation bilaterally. Respiration equal and unlabored. Rhonchi throughout HEART: Irregular rate and rhythm without murmurs, rubs or gallops. S1 and S2 heard. EXTREMITIES: Normal range of motion, moderate pitting edema. No clubbing or cyanosis. TELEMETRY: Atrial fibrillation with rates in the 140 to 160s LABS: WBC 16.5, hemoglobin 7.0, hematocrit 23.9, platelet 301, sodium 140, potassium 3.0, BUN 58, creatinine 1.26 IMPRESSION: A. fib with RVR, currently on amiodarone for rate control Septicemia Acute kidney injury, improving Elevated liver enzymes, improving Acute respiratory failure on vasopressors GI bleeding with acute bowel obstruction PLAN: Increase IV amiodarone to 1 mg continuous High risk surgical candidate Continue supportive treatment No additional recommendations from the cardiac standpoint I am dictating on behalf of Dr Joaquin Dorado's history/physical and assessment/plan. Objective - Vital Signs Vital signs: Vital Signs Temp 99.4 F 08/18/22 08:00 Pulse 126 H 08/18/22 08:36 Resp 29 H 08/18/22 08:00 BP 125/60 08/14/22 01:30 Pulse Ox 94 L 08/18/22 08:00 FiO2 40 08/18/22 08:14 Intake & Output 08/17/22 08/18/22 08/18/22 18:59 06:59 18:59 Intake Total 1282.803 688.754 21.602 Output Total 2365 1245 50 Balance -1082.197 -556.246 -28.398 Intake: IV 443 146 13 0.9% @ KVO 60 110 10 Anidulafungin 200 mg In 150 Sodium Chloride 0.9% 200 ml @ 84 mls/hr IVPB ONCE ONE Rx#:[id number] Ceftazidime/Avibactam 0. 200 94 gm In Sodium Chloride 0.9% 100 ml @ 50 mls/hr IVPB Q24H [facility] Rx#: [id number] Pressure Bag 33 36 3 Intake, IV Titration 479.803 42.754 8.602 Amount Amiodarone 450 mg In 250 Dextrose 5% in Water 250 ml @ 0.5 MG/MIN 16.667 mls/hr IV .Q15H [facility] Rx#: [id number] Norepinephrine 32 mg In 15.015 42.754 8.602 Sodium Chloride 0.9% 218 ml @ 0.5 MCG/KG/MIN 25. 547 mls/hr IV .Q9H48M [facility] Rx#:[id number] Vasopressin 60 unit In 150.042 Sodium Chloride 0.9% 150 ml @ 0.04 UNITS/MIN 6.12 mls/hr IV .Q24H [facility] Rx#: [id number] propofoL 1,000 mg In 64.746 Empty Bag 1 bag @ 15 MCG/ KG/MIN 9.81 mls/hr IV . [id number] [facility] Rx#:[id number] Other 360 500 Output: Urine 2365 1245 50 Other: Voiding Method Indwelling Catheter Indwelling Catheter Indwelling Catheter # Bowel Movements 1 1 ABP, PAP, CO, CI - Last Documented Arterial Blood Pressure 109/45 - Labs CBC & Chem 7: 08/18/22 04:30 08/18/22 04:30 Labs: Abnormal Lab Results - Last 24 Hours (Table) 08/17/22 08/17/22 08/17/22 Range/Units 03:55 11:56 17:58 WBC (3.8-10.6) k/uL RBC (3.80-5.40) m/uL Hgb (11.4-16.0) gm/dL Hct (34.0-46.0) % MCHC (31.0-37.0) g/dL RDW (11.5-15.5) % Neutrophils # (1.3-7.7) k/uL Lymphocytes # (1.0-4.8) k/uL Sodium (137-145) mmol/L Potassium (3.5-5.1) mmol/L Chloride (98-107) mmol/L BUN (7-17) mg/dL Creatinine (0.52-1.04) mg/dL Glucose (74-99) mg/dL POC Glucose (mg/dL) 247 H 217 H (70-110) mg/dL Calcium (8.4-10.2) mg/dL AST (14-36) U/L Alkaline Phosphatase (38-126) U/L Total Protein (6.3-8.2) g/dL Albumin (3.5-5.0) g/dL Triglycerides 388.00 H (0.00-149.00) mg/dL 08/17/22 08/17/22 08/18/22 Range/Units 20:20 23:38 04:30 WBC (3.8-10.6) k/uL RBC (3.80-5.40) m/uL Hgb (11.4-16.0) gm/dL Hct (34.0-46.0) % MCHC (31.0-37.0) g/dL RDW (11.5-15.5) % Neutrophils # (1.3-7.7) k/uL Lymphocytes # (1.0-4.8) k/uL Sodium 148 H (137-145) mmol/L Potassium 2.9 L 3.0 L (3.5-5.1) mmol/L Chloride 119 H (98-107) mmol/L BUN 58 H (7-17) mg/dL Creatinine 1.26 H (0.52-1.04) mg/dL Glucose 292 H (74-99) mg/dL POC Glucose (mg/dL) 305 H (70-110) mg/dL Calcium 7.1 L (8.4-10.2) mg/dL AST 56 H (14-36) U/L Alkaline Phosphatase 275 H (38-126) U/L Total Protein 4.4 L (6.3-8.2) g/dL Albumin 1.7 L (3.5-5.0) g/dL Triglycerides (0.00-149.00) mg/dL 08/18/22 08/18/22 Range/Units 04:30 05:49 WBC 16.5 H (3.8-10.6) k/uL RBC 2.74 L (3.80-5.40) m/uL Hgb 7.0 L (11.4-16.0) gm/dL Hct 23.9 L (34.0-46.0) % MCHC 29.1 L (31.0-37.0) g/dL RDW 17.2 H (11.5-15.5) % Neutrophils # 14.3 H (1.3-7.7) k/uL Lymphocytes # 0.9 L (1.0-4.8) k/uL Sodium (137-145) mmol/L Potassium (3.5-5.1) mmol/L Chloride (98-107) mmol/L BUN (7-17) mg/dL Creatinine (0.52-1.04) mg/dL Glucose (74-99) mg/dL POC Glucose (mg/dL) 337 H (70-110) mg/dL Calcium (8.4-10.2) mg/dL AST (14-36) U/L Alkaline Phosphatase (38-126) U/L Total Protein (6.3-8.2) g/dL Albumin (3.5-5.0) g/dL Triglycerides (0.00-149.00) mg/dL Microbiology - Last 24 Hours (Table) 08/14/22 15:00 Blood Culture - Preliminary Blood No Growth after 72 hours
[2022-08-18] MEDS: ANIDULAFUNGIN 100 MG in SODIUM CHLORIDE 0.9% 100 ML IVPB SCH (08:56)
--- NOTE | 2022-08-18 09:44 | XR ---
EXAMINATION TYPE: XR chest 1V portable DATE OF EXAM: 08/18/2022 COMPARISON: 08/17/2022 HISTORY: Cough TECHNIQUE: Single frontal view of the chest is obtained. FINDINGS: ET and NG tube stable. Left-sided central line noted. Bilateral infiltrate and pleural eff usion. Hypertrophic degenerative changes spine. Surgical clips right upper quadrant. No pneumothorax. Postsurgical changes left shoulder. Coarsened interstitium. IMPRESSION: 1. Bilateral infiltrate and small effusion stable.
--- NOTE | 2022-08-18 10:23 | P.PN ---
Subjective Patient is seen for follow-up for acute kidney injury, mostly ATN currently slowly improving. Etiology is sepsis with fungemia and UTI with urine cultures growing Pseudomonas and enterococcus. Patient also has left lower lobe pneumonia. Patient remains on the vent. FiO2 is at 40%. Patient is also maintained on levo fed as well as vasopressin Urine output at 100-1 50 mL an hour. Serum creatinine at 1.2 from peak at 2.7. Sodium was 148. Free water has been added to tube feedings. Objective - Vital Signs Vital signs: Vital Signs Temp 99.4 F 08/18/22 08:00 Pulse 137 H 08/18/22 09:00 Resp 29 H 08/18/22 09:00 BP 125/60 08/14/22 01:30 Pulse Ox 98 08/18/22 09:00 FiO2 40 08/18/22 09:00 Intake & Output 08/17/22 08/18/22 08/18/22 18:59 06:59 18:59 Intake Total 1282.803 688.754 456.773 Output Total 2365 1245 225 Balance -1082.197 -556.246 231.773 Intake: IV 443 146 39 0.9% @ KVO 60 110 30 Anidulafungin 200 mg In 150 Sodium Chloride 0.9% 200 ml @ 84 mls/hr IVPB ONCE ONE Rx#:[id number] Ceftazidime/Avibactam 0. 200 94 gm In Sodium Chloride 0.9% 100 ml @ 50 mls/hr IVPB Q24H [facility] Rx#: [id number] Pressure Bag 33 36 9 Intake, IV Titration 479.803 42.754 217.773 Amount Amiodarone 450 mg In 250 Dextrose 5% in Water 250 ml @ 0.5 MG/MIN 16.667 mls/hr IV .Q15H [facility] Rx#: [id number] Amiodarone 450 mg In 209.171 Dextrose 5% in Water 250 ml @ 1 MG/MIN 33.333 mls/ hr IV .Q7H30M [facility] Rx#: [id number] Norepinephrine 32 mg In 15.015 42.754 8.602 Sodium Chloride 0.9% 218 ml @ 0.5 MCG/KG/MIN 25. 547 mls/hr IV .Q9H48M [facility] Rx#:[id number] Vasopressin 60 unit In 150.042 Sodium Chloride 0.9% 150 ml @ 0.04 UNITS/MIN 6.12 mls/hr IV .Q24H [facility] Rx#: [id number] propofoL 1,000 mg In 64.746 Empty Bag 1 bag @ 15 MCG/ KG/MIN 9.81 mls/hr IV . [id number] [facility] Rx#:[id number] Other 360 500 200 Output: Urine 2365 1245 225 Other: Voiding Method Indwelling Catheter Indwelling Catheter Indwelling Catheter # Bowel Movements 1 1 ABP, PAP, CO, CI - Last Documented Arterial Blood Pressure 109/47 - Exam Patient is sedated and on the vent. Examination of the heart S1 and S2 Examination of the lungs bilateral breath sounds are heard Abdomen is soft distended obese Examination lower extremity shows edema 2+ bilaterally upper and lower extremities DEBUBBLIZER exam cannot be performed - Labs CBC & Chem 7: 08/18/22 04:30 08/18/22 04:30 Labs: Abnormal Lab Results - Last 24 Hours (Table) 08/17/22 08/17/22 08/17/22 Range/Units 03:55 11:56 17:58 WBC (3.8-10.6) k/uL RBC (3.80-5.40) m/uL Hgb (11.4-16.0) gm/dL Hct (34.0-46.0) % MCHC (31.0-37.0) g/dL RDW (11.5-15.5) % Neutrophils # (1.3-7.7) k/uL Lymphocytes # (1.0-4.8) k/uL Sodium (137-145) mmol/L Potassium (3.5-5.1) mmol/L Chloride (98-107) mmol/L BUN (7-17) mg/dL Creatinine (0.52-1.04) mg/dL Glucose (74-99) mg/dL POC Glucose (mg/dL) 247 H 217 H (70-110) mg/dL Calcium (8.4-10.2) mg/dL AST (14-36) U/L Alkaline Phosphatase (38-126) U/L Total Protein (6.3-8.2) g/dL Albumin (3.5-5.0) g/dL Triglycerides 388.00 H (0.00-149.00) mg/dL 08/17/22 08/17/22 08/18/22 Range/Units 20:20 23:38 04:30 WBC (3.8-10.6) k/uL RBC (3.80-5.40) m/uL Hgb (11.4-16.0) gm/dL Hct (34.0-46.0) % MCHC (31.0-37.0) g/dL RDW (11.5-15.5) % Neutrophils # (1.3-7.7) k/uL Lymphocytes # (1.0-4.8) k/uL Sodium 148 H (137-145) mmol/L Potassium 2.9 L 3.0 L (3.5-5.1) mmol/L Chloride 119 H (98-107) mmol/L BUN 58 H (7-17) mg/dL Creatinine 1.26 H (0.52-1.04) mg/dL Glucose 292 H (74-99) mg/dL POC Glucose (mg/dL) 305 H (70-110) mg/dL Calcium 7.1 L (8.4-10.2) mg/dL AST 56 H (14-36) U/L Alkaline Phosphatase 275 H (38-126) U/L Total Protein 4.4 L (6.3-8.2) g/dL Albumin 1.7 L (3.5-5.0) g/dL Triglycerides (0.00-149.00) mg/dL 08/18/22 08/18/22 Range/Units 04:30 05:49 WBC 16.5 H (3.8-10.6) k/uL RBC 2.74 L (3.80-5.40) m/uL Hgb 7.0 L (11.4-16.0) gm/dL Hct 23.9 L (34.0-46.0) % MCHC 29.1 L (31.0-37.0) g/dL RDW 17.2 H (11.5-15.5) % Neutrophils # 14.3 H (1.3-7.7) k/uL Lymphocytes # 0.9 L (1.0-4.8) k/uL Sodium (137-145) mmol/L Potassium (3.5-5.1) mmol/L Chloride (98-107) mmol/L BUN (7-17) mg/dL Creatinine (0.52-1.04) mg/dL Glucose (74-99) mg/dL POC Glucose (mg/dL) 337 H (70-110) mg/dL Calcium (8.4-10.2) mg/dL AST (14-36) U/L Alkaline Phosphatase (38-126) U/L Total Protein (6.3-8.2) g/dL Albumin (3.5-5.0) g/dL Triglycerides (0.00-149.00) mg/dL Microbiology - Last 24 Hours (Table) 08/14/22 15:00 Blood Culture - Preliminary Blood No Growth after 72 hours Assessment and Plan Assessment: 1. Acute kidney injury secondary to ATN from underlying infection with fungemia and urine tract infection with Pseudomonas and enterococcus. Creatinine is improved this morning from 2.72 mg to 1.59. 2. Hypotension secondary to sepsis, on levo fed and vasopressin 3. Ventilator dependent respiratory failure, stable 40% FiO2 3. Left lower lobe pneumonia 4. UTI with Pseudomonas and enterococcus. 5. Hypocalcemia secondary to acute kidney injury. Severe nutritional vitamin D deficiency noted 6. Elevated liver function tests secondary to sepsis/ hypotension 7. Hypernatremia associated with free water deficit currently maintained on free water down the feeding tube Plan: Replace vitamin D Continue free water, increase dose to 250 ML every 4 hours Maintain IV Lasix daily Replace potassium
[2022-08-18] MEDS: AMIODARONE 450 MG in DEXTROSE 5% IN WATER 250 ML IV SCH ×8 (10:28→18:22)
[2022-08-18] MEDS ORDERED: FUROSEMIDE 10 MG/ML 4 ML VIAL IV STA (10:47)
--- NOTE | 2022-08-18 10:49 | P.PN ---
Subjective Progress Note Date: 08/18/22 cements, hypothyroidism, morbid obesity, multiple orthopedic surgeries, congestive heart failure, diabetes bella, hypertension, hyperlipidemia, osteoarthritis, obstructive sleep apnea on BiPAP, CVA/TIA, oxygen dependent and she was recently discharged from here to [facility] on the [place] and was just home for 3 days when she developed a syncopal episode yesterday. Her that may related to low blood sugar and try to give her oral issues which she vomited. She was brought into the emergency room yesterday. She is seen today in consultation. She remains in the emergency department. She is sitting up in bed. She is basically just moaning and groaning. Her family is at the bedside and provides him permission. She was initially placed on BiPAP. She is currently on 6 L high flow nasal cannula with O2 saturations in the 90s. Afebrile. Somewhat hypotensive. Blood culture reveals no growth to date. Urine culture pending. White count 19.1. Hemoglobin 8.0. Sodium 136. Potassium 4.6. Bicarb 17. BUN 66. Creatinine 2.27. Glucose 145. D-dimer 4.73. ProBNP 426. Troponin negative 1. CT angiogram ruled out pulmonary embolism. There is evidence of cardiomegaly with pulmonary vascular congestion. Scattered airspace opacities more consolidation in the right lung base. Rule out aspiration. Computed tomography scan of the abdomen and pelvis revealed extensive stool burden throughout the colon. 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 Today's chest x-ray shows Nasogastric tube in place. Mild cardiomegaly with bibasilar acute infiltrate and/or ate lectasis. She's been initiated on Symbicort, DuoNeb inhalations, antibiotics in the form of Levaquin. She is anticoagulated with Eliquis. The patient is seen today for per 2022 in follow-up in the intensive care unit. Just after midnight they called an a team on her due to her being obtun ded and hypotensive. She was on the sixth liter Ventimask and they do arterial blood gases that revealed a pO2 of 136, pCO2 31, pH 7.28. She was placed on BiPAP 12/5 and 50% and transferred into the intensive care unit. She received 3 A of sodium bicarb. She has D5W with 3 A of sodium bicarb at 75 ML's per hour. She is on norepinephrine at 27 mcg/m. Vasopressin at 0.03 units per minute. 0.9 normal saline at 20 mL per hour. She did undergo central line placement and arterial line placement. Follow-up blood gases reveal a pO2 of 295. PCO2 of 48. PH is 7.20 100% FiO2. White count 8.7. Hemoglobin 8.2. Platelets 311. Sodium 134. Potassium 6.3. Chloride 110. Bicarb 13. BUN 81. Creatinine 2.68. Glucose 134. Pro-calcitonin 11.0. She remains on bronchodilators. Continued on antibiotics in the form of Levaquin and cefepime. Her culture positive for group D enterococcus and gram-negative bacilli. Blood culture reveals no growth. The patient is seen today 08/11/2022 in follow-up in the intensive care unit. She did have progressive shortness of breath and hypoxemia and was subsequently intubated and placed on mechanical ventilator yesterday. He is currently on assist control mode with a rate of 20, tidal volume 400, FiO2 50% PEEP of 5. Morning blood gases revealed a PaO2 of 99, pCO2 45, pH 7.30 that was on 60% FiO2. She developed atrial fibrillation requiring amiodarone as well. She is hypotensive and requiring norepinephrine at 55 mcg/m, vasopressin at 0.04 units per minute. She remains on D5W with 3 A of bicarbonate 100 ML's per hour. 0.9 normal saline at 20 ML's per hour. She remains on antibiotics in the form of Levaquin, cefepime and daptomycin. Urine culture is positive for Enterococcus faecalis and Pseudomonas aeruginosa. Blood cultures showing no growth. Chest x-ray reveals no significant change. Stable appearance of the cardiomediastinal structures. Pleural effusion unchanged. No change in bibasilar opacities. White count 12.2. Hemoglobin 8.6. Platelets 349. Sodium 139. Potassium 5.1. Bicarb 22. BUN 79. Creatinine 2.74. Glucose 221. Lactic acid 3.2. Calcium 5.8. Cortisol 45. She is continued on DuoNeb inhalations, Pulmicort and Perforomist inhalations. The patient is seen today 08/12/2022 in follow-up in the intensive care unit. She remains intubated on the mechanical ventilator in assist control mode at a r ate of 28, tidal volume 400, FiO2 50% and PEEP of 5. Morning blood gases revealed a pO2 of 115, pCO2 40, pH 7.4. She is currently sedated on propofol at 25 mcg/kg/m. She is on normal saline at 100 mL an hour. She is still requiring pressors in the form of norepinephrine at 55 mcg/m and vasopressin at 0.04 units per minute. She remains on antibiotics in the form of Zerbaxa, Levaquin and daptomycin. Urine culture was positive for Enterococcus faecalis and Pseudomonas aeruginosa. Blood cultures have revealed no growth. Sputum culture pending. White count 6.8. Hemoglobin 8.4. Platelets 268. Sodium 140. Potassium 4.5. BUN 81. Creatinine 2.72. Glucose 162. Calcium 6.0. AST 166. ALT 21. Alk phos 385. Currently in a +3.1 L balance. She is continued on DuoNeb inhalations, Pulmicort and Perforomist inhalations. The patient is seen today 08/13/2022 in follow-up in the intensive care unit. He remains intubated and on mechanical ventilator currently and assist-control mode at a rate of 28, tidal volume 400, FiO2 40% and a PEEP of 5. Morning blood gases revealed a pO2 of 100, pCO2 is 88 and a pH of 7.35. She did have issues with atrial fibrillation and rapid ventricular response and was seen by cardiology earlier this morning who initiated amiodarone bolus and started a drip at 1 mg/m. She has normal saline at 100 MLS per hour. Propofol at 20 mcg/kg/m. Norepinephrine at 36 mcg/m and vasopressin at 0.04 units per minute. Tube feeds are currently on hold per surgery for possible ileus. Chest x-ray shows similar bibasilar airspace opacities. Urine culture positive for Enterococcus faecalis and pseudomonas aeruginosa. Blood culture preliminary positive for anaerobic gram-negative bacilli. Sputum culture hasn't for Ange. White count 9.6. Hemoglobin 8.2. Platelets 244. Sodium 141. Potassium 3.5. Bicarb 20. BUN 75. Creatinine 2.52. Glucose 159. Calcium 5.6. AST 162. ALT 19. Albumin 1.8. Currently in a +312 mL balance. She is currently on bronchodilators. Remains on Eraxis, Zerbaxa, daptomycin. Currently on Lovenox with pharmacy to dose. 08/14/2022, I'm seeing the patient for a follow-up. A very complicated case of a septic shock and 87-year-old female patient weighs currently on mechanical ventilator. The patient has had recurrent [place] tract infection in addition to multitude of comorbidities. She came with a septic shock and suspected bowel obstruction. In summary, the patient came with a septic shock and multisystem organ failure, currently intubated on a mechanical ventilator. This morning, she is on propofol running at 20 mcg/kg/m and she is calm and comfortable in bed at 6 with a mechanical ventilator. She'll assist-control mode of mechanical ventilation at the rate of 28 with a tidal volume of 400 and FiO2 40% with a PEEP of 5. Blood gas from today shows a pH of 7.37 with a pCO2 of 38 and pO2 113. Chest x-ray was also noted from today and there is adequate positioning of the orotracheal tube. There is also persistent bilateral pulmonary infiltrates and small effusions. There may be an underlying component of CHF. Airspace disease is seen in the left perihilar and right lower lobe area. Hemod ynamically, the patient is on pressors and norepinephrine is running at 0.14 mcg/kg/m and she is also on a physiologic dose of vasopressin. She remains active fibrillation and she does have a rapid ventricular response in her heart rate is around 120. She is on a broad-spectrum antibiotic coverage. She is currently on a combination of an axis and Zerbaxa and the cultures that were obtained earlier showed Pseudomonas that was multidrug resistance and Enterococcus faecalis in her urine, there was an anaerobic gram-negative bacillus in the blood, and there was also Ange and the blood. Hence, the antibiotic coverage was adjusted. In terms of her white cell count, she is currently running a white second of 11.2 with a hemoglobin of 7.8 and a platelet count of 229. Electrolytes are stable with a sodium of 144, potassium is at 3.0 with these to be replaced, BUN is at 67 with a creatinine of 2.21. The blood sugars at 147. The patient was taken off the amiodarone drip. The patient is on Levemir insulin 10 units and she is also receiving a sliding scale coverage. She is nothing by mouth. NG tube is in place. Output has been dark gastric material and output is minimal in the order of 500 mL per 24 hours, quite liquidy. Abdomen is soft, the patient was given several enemas without any successful bowel movement. Her previous echocardiogram from March 2022 as shown a moderate degree of aortic stenosis. Hyl[place] cath is in place. Urine output is in order of 100 mL an hour and the patient is currently on IV fluids in the form of normal saline at rate of 50 mL an hour. She is afebrile. The patient also has a stage II wound in her coccyx. Fluid balance over the past 24 hours has been in the order of 730 mL. 08/15/2022, the patient remains intubated on a mechanical ventilator and the patient is being seen for a follow-up. Obviously, the patient is still septic, hypotensive, with evidence of multisystem organ failure, still on pressors, still intubated on a mechanical ventilator. As summary, over the past 24 hours, the patient was kept on mechanical ventilator, kept on antibiotics and pressors. This morning, she is sedated with propofol which is running at 30 mcg/kg/m. She is fairly sentences mechanical ventilator. She is on assist-control mode at a rate of 28, tidal volume of 100, FiO2 40% with a PEEP of 5. The peak airway pressure is 25. The blood gas shows a pH of 7.32 with a pCO2 of 39 and a pO2 of 106. Chest x-ray findings of essentially unchanged with some limited airspace disease in the lung bases bilaterally. Orotracheal tube remains in a good location. Hemodynamically, the patient is on IV fluids running at 10 mL an hour of normal saline. She has been in a positive fluid balance. She has been off pressors and the patient is on a physiologic dose of vasopressin and norepinephrine infusion was brought up to 0.2 mcg/kg/m and this is slightly higher compared to yesterday. Review blood cultures were sent yesterday. The patient is still in tachycardia with an underlying rhythm of atrial fibrillation. Her previous echocardiogram from March 2022 was essentially within normal limits. The antibiotic coverage is essentially the same and the patient remains on a combination of Eraxis and Zerbaxa. She is spiking low- grade fevers and her T-max is 100.5. In terms of her feeding, I was again his TPN specially with her systemic fungal anemia. We will give the patient rectal exam and there was no identifiable stool in the rectum. Flat film of the abdomen showed constipation and fecal stasis. Based on that, the patient was given lactulose. She was started on triple feeding again and currently she is on vital AF at the rate of 10 mL an hour. We are going to also start the patient on lactulose and gradually advance her diet. Hoping to have a bowel movement. She had a smear on a bowel movement yesterday. In terms of fluid balance, the patient has been in a positive fluid balance of 250 mL over the pas t 24 hours. The rest of the blood work shows a white cell count of 11.2 from yesterday. Repeat blood work is pending for now in terms of CBC. The sodium is at 145, potassium is at 3.8, serum bicarb is at 19, BUN 61 with a creatinine of 1.7. Total calcium levels at 6.4 and ionized calcium is normal at 4.5. AST is at 106, ALP is at 14, alkaline phosphatase is at 311, serum albumin is at 1.7 with a total protein of 4.0. She has a stage II coccygeal wounds. Condition remains critical. Family is at the bedside. 08/16 2022, remains on a mechanical ventilator and the patient is being seen in follow-up. The patient this morning is on a propofol running at 15 mcg/kg/m. Within the proximal of gradually cutting down the sedation and assessing the patient's underlying mental status. Meanwhile, she remains septic in a mechanical ventilator and she is still hypotensive although her pressor requirements have somewhat improved compared to yesterday. this morning, she did assist-control at the rate of 28, tidal volume of 400, FiO2 40% with a PEEP of 5. The chest x-ray shows essentially no interval change with some limited airspace disease in the lung bases more so on the right. The blood gas showed a pH of 7.36 with a pCO2 of 39 and pO2 of 107. She is quite interested a mechanical ventilator. She is on IV fluids at KVO. She is on norepinephrine at 0.1 for microvascular kilogram per minute and she is also on physiologic dose of vasopressin. Her overall fluid balance since yesterday has been in the order of +254 mL. She is producing adequate amount of urine output and renal function continues to improve. On today's blood work, her sodium level is at 147, potassium level of 3.5, BUN is 59 with a creatinine of 1.59. The white cell count remains elevated at 20.2 with a hemoglobin of 7.8 and a platelet count of 272. Review blood cultures have been sent and the cultures are negative for now and the patient remains on the same antibiotic coverage which included Eraxis and Zerbaxa. . Another issue is constipation and difficulty to feed this patient. I did not favor TPN because of an underlying systemic candidemia. I try to check with either and she had increased residuals. For now, she is on a combination of MiraLAX, lactulose and Reglan. She did have a smear of stool earlier. She hasn't had any significant feeding for the past 5 days. At the same time, cardiac rhythm is atrial fibrillation. The patient remains on amiodarone at 0.5 mg/m. Her rate is ranging between 120 and 130. She is maintaining her pressure while being on pressors. 08/17/2022, patient remains intubated on a mechanical ventilator. She was given a sedation holiday yesterday. There was no meaningful neurologic recovery. The patient started breathing above the vent and she was becoming more tachypneic. Based on that, she was restarted at a lower dose of propofol which is currently at 10 mcg/kg/m. She remains intubated on a mechanical ventilator. She did assist-control mode at the rate of 28 with a tidal volume of 400 and FiO2 of 40% with a PEEP of 5. Correction patient is stable with a pO2 115. Her pH is at 7.32 with a pCO2 of 40. Her chest x-ray findings remain essentially unchanged. In terms of her GI tract, were unable to feed the patient and the patient is currently on TPN for nutritional support running at a rate of 30 mL an hour. The patient has been NG tube in place. She is receiving lactulose 4 times a day, IV Reglan and MiraLAX. No bowel movement activity yet. No abdominal distention. No abdominal pain or tenderness. The patient is doing better hemodynamically. She is on less pressors. Her norepinephrine is Down to 0.07 mcg/kg/m that she remains on vasopressin physiologic dose. She remains on the same antibiotic coverage for now. She is afebrile. The white cell count currently is at 19.7 with a hemoglobin of 7.3. Platelet count is at 283. The white cell count is stable compared to yesterday. The cultures from before were noted and the patient has been kept on a combination of Zerbaxa and Eraxis. She remains in atrial fibrillation and the patient remains on amiodarone at a dose of 0.5 mg/m. Heart rate is on the adequate control for now. Meanwhile, her sodium level today is at 147 and the patient continues to receive free water flushes through her OG. Her potassium is at 3.3, he is a 57 with a creatinine of 1.58. Potassium is at 3.3. LFTs are adequate with a drop in the alkaline phosphatase is down to 273, AST is at 70, ALTs at 21. The patient has a blood sugar of 273. The patient has been started on Levemir 10 units daily plus a sliding scale coverage. We will make further adjustments based on her blood sugar control over the next 24 hours. The patient is currently on KVO IV fluids. Fluid balance has been -830 mL over the past 24 hours. No diuretics for now. 08/18/2022, a she is being seen for a follow-up. This morning, the patient is off sedation and she is quite lethargic and still unresponsive. She is quite synchronous a mechanical ventilator. Is an assist-control mode rate of 28 with a tidal volume of 400 and FiO2 of 40% with a PEEP of 5. Chest x-ray findings are stable and there is no evidence of pneumonia and there is adequate aeration of the lungs bilaterally with adequate positioning of the ET tube. The blood gas shows a pH of 7.35 with a pCO2 of 40 and pO2 of 89. At the same time, the patient is improving hemodynamically. She is on IV fluids at KVO. She is on norepinephrine running at 0.04 mcg/kg/m and the patient is also on a physiologic dose of vasopressin. Urine output is adequate. Fluid balance is in order of - 1.6 L and the patient is given a dose of Lasix 40 mg IV push 1 yesterday. The same may need to be repeated today. She remains on TPN for nutritional support. After receiving an aggressive regimen of laxatives which included lactulose and MiraLAX and the patient was on promotility agent with Reglan, the patient started having some bowel movement with activity. NG tube is in place. Output is minimal. No abdominal distention. Her cardiac rhythm is still in atrial fibrillation. She had some issues with tachycardia overnight and for that reason the amiodarone dose was increased up to 1 mg/m. She is afebrile. She remains on the same antibiotic coverage for now. She is on Levemir insulin which is running at a dose of 15 units a day along with that she is receiving size. Coverage. In terms of her blood work, the white cell count of 16.5 and the patient has a hemoglobin of 7 with a platelet count of 301. Sodium is at 148, potassium is at 3, chloride is 119 and a bicarb is 23 with a BUN of 58 and a creatinine of 1.26. Noted the creatinine continues to improve. LFTs show an AST of 56, ALP of 13, alkaline phosphatase of 275. Albumin is at 1.7. The patient remains on Eliquis and she is currently receiving a dose of 5 mg by mouth twice a day. Objective - Vital Signs Vital signs: Vital Signs Temp 99.4 F 08/18/22 08:00 Pulse 137 H 08/18/22 09:00 Resp 29 H 08/18/22 09:00 BP 125/60 08/14/22 01:30 Pulse Ox 98 08/18/22 09:00 FiO2 40 08/18/22 09:00 Intake & Output 08/17/22 08/18/22 08/18/22 18:59 06:59 18:59 Intake Total 1282.803 688.754 478.206 Output Total 2365 1245 225 Balance -1082.197 -556.246 253.206 Intake: IV 443 146 39 0.9% @ KVO 60 110 30 Anidulafungin 200 mg In 150 Sodium Chloride 0.9% 200 ml @ 84 mls/hr IVPB ONCE ONE Rx#:[id number] Ceftazidime/Avibactam 0. 200 94 gm In Sodium Chloride 0.9% 100 ml @ 50 mls/hr IVPB Q24H [facility] Rx#: [id number] Pressure Bag 33 36 9 Intake, IV Titration 479.803 42.754 239.206 Amount Amiodarone 450 mg In 250 Dextrose 5% in Water 250 ml @ 0.5 MG/MIN 16.667 mls/hr IV .Q15H [facility] Rx#: [id number] Amiodarone 450 mg In 220.282 Dextrose 5% in Water 250 ml @ 1 MG/MIN 33.333 mls/ hr IV .Q7H30M [facility] Rx#: [id number] Norepinephrine 32 mg In 15.015 42.754 18.924 Sodium Chloride 0.9% 218 ml @ 0.5 MCG/KG/MIN 25. 547 mls/hr IV .Q9H48M [facility] Rx#:[id number] Vasopressin 60 unit In 150.042 Sodium Chloride 0.9% 150 ml @ 0.04 UNITS/MIN 6.12 mls/hr IV .Q24H [facility] Rx#: [id number] propofoL 1,000 mg In 64.746 Empty Bag 1 bag @ 15 MCG/ KG/MIN 9.81 mls/hr IV . [id number] [facility] Rx#:[id number] Other 360 500 200 Output: Urine 2365 1245 225 Other: Voiding Method Indwelling Catheter Indwelling Catheter Indwelling Catheter # Bowel Movements 1 1 ABP, PAP, CO, CI - Last Documented Arterial Blood Pressure 109/47 - Exam GENERAL EXAM: Intubated, sedated, 87-year-old morbidly obese female, on 40% FiO2 and a PEEP of 5. HEAD: Normocephalic. EYES: Sluggish reaction of pupils, equal size. NOSE: Nasogastric tube secured in place. Clear with pink turbinates. THROAT: Oral endotracheal tube in place. NECK: No masses, no JVD. CHEST: No chest wall deformity. LUNGS: Equal air entry with crackles in the bilateral bases. CVS: S1 and S2 normal with no audible murmur, irregular rhythm. ABDOMEN: No hepatosplenomegaly, normal bowel sounds, no guarding or rigidity. SPINE: No scoliosis or deformity SKIN: No rashes CENTRAL NERVOUS SYSTEM: Sedated, tone is normal in all 4 extremities. EXTREMITIES: There is 1-2+ peripheral edema. Changes of chronic venous stasis. No clubbing, no cyanosis. Peripheral pulses are intact. - Labs CBC & Chem 7: 08/18/22 04:30 08/18/22 04:30 Labs: Abnormal Lab Results - Last 24 Hours (Table) 08/17/22 08/17/22 08/17/22 Range/Units 03:55 11:56 17:58 WBC (3.8-10.6) k/uL RBC (3.80-5.40) m/uL Hgb (11.4-16.0) gm/dL Hct (34.0-46.0) % MCHC (31.0-37.0) g/dL RDW (11.5-15.5) % Neutrophils # (1.3-7.7) k/uL Lymphocytes # (1.0-4.8) k/uL Sodium (137-145) mmol/L Potassium (3.5-5.1) mmol/L Chloride (98-107) mmol/L BUN (7-17) mg/dL Creatinine (0.52-1.04) mg/dL Glucose (74-99) mg/dL POC Glucose (mg/dL) 247 H 217 H (70-110) mg/dL Calcium (8.4-10.2) mg/dL AST (14-36) U/L Alkaline Phosphatase (38-126) U/L Total Protein (6.3-8.2) g/dL Albumin (3.5-5.0) g/dL Triglycerides 388.00 H (0.00-149.00) mg/dL 08/17/22 08/17/22 08/18/22 Range/Units 20:20 23:38 04:30 WBC (3.8-10.6) k/uL RBC (3.80-5.40) m/uL Hgb (11.4-16.0) gm/dL Hct (34.0-46.0) % MCHC (31.0-37.0) g/dL RDW (11.5-15.5) % Neutrophils # (1.3-7.7) k/uL Lymphocytes # (1.0-4.8) k/uL Sodium 148 H (137-145) mmol/L Potassium 2.9 L 3.0 L (3.5-5.1) mmol/L Chloride 119 H (98-107) mmol/L BUN 58 H (7-17) mg/dL Creatinine 1.26 H (0.52-1.04) mg/dL Glucose 292 H (74-99) mg/dL POC Glucose (mg/dL) 305 H (70-110) mg/dL Calcium 7.1 L (8.4-10.2) mg/dL AST 56 H (14-36) U/L Alkaline Phosphatase 275 H (38-126) U/L Total Protein 4.4 L (6.3-8.2) g/dL Albumin 1.7 L (3.5-5.0) g/dL Triglycerides (0.00-149.00) mg/dL 08/18/22 08/18/22 Range/Units 04:30 05:49 WBC 16.5 H (3.8-10.6) k/uL RBC 2.74 L (3.80-5.40) m/uL Hgb 7.0 L (11.4-16.0) gm/dL Hct 23.9 L (34.0-46.0) % MCHC 29.1 L (31.0-37.0) g/dL RDW 17.2 H (11.5-15.5) % Neutrophils # 14.3 H (1.3-7.7) k/uL Lymphocytes # 0.9 L (1.0-4.8) k/uL Sodium (137-145) mmol/L Potassium (3.5-5.1) mmol/L Chloride (98-107) mmol/L BUN (7-17) mg/dL Creatinine (0.52-1.04) mg/dL Glucose (74-99) mg/dL POC Glucose (mg/dL) 337 H (70-110) mg/dL Calcium (8.4-10.2) mg/dL AST (14-36) U/L Alkaline Phosphatase (38-126) U/L Total Protein (6.3-8.2) g/dL Albumin (3.5-5.0) g/dL Triglycerides (0.00-149.00) mg/dL Microbiology - Last 24 Hours (Table) 08/14/22 15:00 Blood Culture - Preliminary Blood No Growth after 72 hours Assessment and Plan Plan: Acute on chronic hypoxemic respiratory failure secondary to suspected diastolic congestive heart failure. The patient did deteriorate on 08/10/2022 requiring intubation mechanical ventilatory support. She has a component of CHF and multi ple infiltrates bilaterally, as superinfection with a pneumonia cannot be completely ruled out. X-ray findings are the same. Blood gas is adequate for this morning. No major change in her blood gas or chest x-ray on today's evaluation. Overall respiratory status is stable for now. The patient is oxygenating well. Septic shock secondary to above, now requiring pressor support in the form of n orepinephrine and vasopressin, still hypotensive, still requiring pressors,, though was recommended antibiotics with a combination of Eraxis and Zerbaxa, afebrile, pressor requirements have dropped since yesterday and no new cultures for now. White cell count is still elevated at 16.5 urinary tract infection, sepsis. Urine culture positive for Enterococcus faecalis and Pseudomonas aeruginosa Systemic candidiasis with positive culture with Ange Anaerobic gram-negative bacteria in the blood Atrial fibrillation with a rapid ventricular response initiated on amiodarone drip and the patient remains on amiodarone at 1 mg/m Chronic constipation with significant stool impaction. Currently on a combination of laxatives including lactulose and MiraLAX. The patient is also on Reglan. Patient started having adequate bowel movements Previous history of urinary tract infections History of atrial fibrillation on Eliquis in the outpatient Acute on chronic kidney disease, creatinine peaked 2.77 and the patient's creatinine continues to improve Recent COVID-19 infection History of valvular heart disease with aortic valve stenosis and preserved LV function, based on an echocardiogram from March 2022 Chronic changes in the right lower lobe with small right pleural effusion Acute on chronic anemia my current hemoglobin 7.0 and the patient remains on anticoagulation with Eliquis History of chronic obstructive pulmonary disease History of prior tobacco dependence History of diastolic congestive heart failure History of coronary disease with multiple stent placements History of CVA/TIA History of diabetes mellitus Morbid obesity Hypertension Hyperlipidemia Hypothyroidism Poor overall functional performance based on the above-mentioned multiple comorbidities with recent stay and ECF Plan: Keep the patient off sedation Ventilator support, no vent changes will be done for today Continue same antibiotic coverage IV fluids to KVO Lasix 40 mg IV 41 Monitor and assess mental status Start free water at a dose of 200 mL every 4 hours serology Keep the patient nothing by mouth for feeding and continue TPN for another 24 hours. The patient started having adequate bowel movement activity Give the patient has sedation holiday Obtain a flat film of the abdomen in a.m. Continue the lactulose to 4 times a day Continue Reglan Continue MiraLAX Producing adequate amount of urine output Monitor renal function Monitor blood pressure and gradually wean off the pressors if possible, norepinephrine first Continue amiodarone for rate control, the dose has been increased to 1 mg/m Lovenox for DVT prophylaxis, nontherapeutic dose, I would suggest stopping this and putting the patient on on Eliquis 5 mg twice a day. Repeat blood cultures are negative Continue Eraxis/Zerbaxa Continue bronchodilators Overall prognosis remains poor We will continue to follow and make further recommendations based on her clinical status Is extremely critical. Case was discussed with the daughter at the bedside. We'll continue to follow. Evaluation was done >30 min Time with Patient: Greater than 30
[2022-08-18 11:19] LABS: Glucose,Whole Blood 337 mg/dL (70-110)
[2022-08-18] MEDS ORDERED: WATER IV SCH ×2 (12:15)
[2022-08-18] MEDS ORDERED: DEXTROSE 5% IV SCH ×2 (12:15)
[2022-08-18] MEDS ORDERED: AMIODARONE IV SCH ×2 (12:15)
[2022-08-18] MEDS ORDERED: AMIODARONE 450 MG in DEXTROSE 5% IN WATER 250 ML IV SCH ×2 (12:30)
--- NOTE | 2022-08-18 13:32 | P.PN ---
Subjective This is a 87-year-old morbidly, obese, female, well known to me. She has multiple medical problems including a chronic renal failure, chronic systolic congestive heart failure. I last seen her on August 05, 2022 at [facility] [place]. She was doing fairly well at that time. She was there for rehabilitation. This was her third [facility] visit in the past Several months.Her only complaint with some constipation. She not stool since August 03. She has been hospitalized in the past year nine times including this current visit.She [place] [facility] [place]. On August 08, 2022 she presented the emergency room via EMS. Her indicates that she went to the bathroom, and, he had found her slumped over in her wheelchair, blue in the face and not breathing well. He had tried to feed her and given her some insulin. SheHer only complaint with some constipation. After patients admission, just after midnight and 18 was called on her and she is going to be attending hypotensive. Choose placement of any mask and BiPAP. Eventually she required intubation. And her about August 11. She's currently in abated and sedated.How to raise tachycardic blood pressure is stable with pressers.She is on aAnidulafungin For positive sputum and blood cultures of yeast. She remains on sodium chloride and potassium chloride IV and is now on tube feeds at 10 ml/hr. Labs for today show a leukocytosis at 16.2 with a left shift 13.9 neutrophils hemoglobin is 7.7. ABGs from this morning show page 7.32 PCO2 of 39 PO and HCO3 a 20.Chemistry is show the normal electrolytes decrease carbon dioxide and 19 GFR is 26. Calcium 6.4. She is receiving a amino acids and D5 through the IV. She has Dulcolax per rectum ordered. She has sheathing calcium gluconate. She remains Zerbaxa for antibiotic coverage.She is receiving Lovenox for anticoagulation and DVT prophylaxis, Levemir insulin along with scale, Levophed for blood pressure control, potassium chloride for hypokalemia. She's being followed by critical care, Nephrology,surgery, Infectious disease and cardiology August 16 2022: She remains intubated in the intensive care unit. Sedation has been discontinued. She remains on pressors of Levophed. The dose of this is been decreased. She did not tolerate tube feeds. Heart rate remains elevated. She is in atrial fibrillation. She is on potassium replacement protocol. Calcium gluconate, amiodarone drip, need to left fungated antifungal medication, ceftolazone/tazobactam for antibiotic coverage for suspected UTI and sepsis, Reglan for her constipation, insulin for her diabetes, Elequis for anticoagulation. Laboratory studies show a leukocytosis at 20.2 with hemoglobin of 70 absolute neutrophils 17.5. ABGs show pH 7.36 PCO2 39 PO2 107. Chemistries slightly altered, GFR is improved, CRP and pro calcitonin elevated. Repeat blood cultures have been negative. She remains on MiraLAX, lactulose and Reglan per critical care for the constipation issues. Calcitonin is improved. Glucose remains well controlled. Critical care planning gradually reducing her pressors as needed. Etiologies following for her A. fib with RVR. He continues to have volvulus. 08/17/2022: Patient remains intubated in the intensive care unit. He remains on norepinephrine and vasopressin for hypotension. Sedation used propofol but will be discontinued soon for a trial ventilator on standby. I discussed her case personally with the insurance claims assistant. She remains on Levemir insulin 10 units and NovoLog scale every 6 hours. Staff reports increased sugars recently. She continues on naproxen than for anticoagulation, amiodarone for atrial fibrillation with RVR, budesonide for her COPD, Eraxis for candidal infection and Zybrexa for anti-biotic coverage for UTI. Her main some potassium protocol. She is on lactulose and Reglan to help with her obstipation. She is receiving TPN for nutrition. I remains tachycardic, rest her rate somewhat elevated. Blood pressure remained stable. WB Nayla is slightly improved from yesterday, hemoglobin is slightly down from yesterday. Blood gases chemistries reviewed. She remains hypokalemic. Kidney function continues to improve very slowly. Glucose was 260 this morning. Calcium and protein albumin remained low. Her 13 blood cultures remain negative. Her condition is critical care cardiology reviewed. Chest x-ray shows no nipple can't change. 08/18 2022: Patient remains intubated in the intensive care unit. Sedation has been off, but there's been no significant wakefulness noted. Vital signs show she remains tachycardic in the 130s. Respiratory rate is 30 and mechanically ventilated, blood pressure remains low normal with pressers of vasopressin and levo fed. FiO2 is 40 Labs show to be discussed 16 5 hemoglobin 7 hematocrit 23.9 platelets are 301. Arterial line gases show pH 7.35 PCO2 40 and PO2 of 89. Chemistry shows sodium 148 potassium 3.0 chloride 119 CO2 23 BUN 58 crit and 1.26. Critical care, nephrology notes were reviewed. Objective - Vital Signs Vital signs: Vital Signs Temp 98.2 F 08/18/22 12:00 Pulse 130 H 08/18/22 12:17 Resp 30 H 08/18/22 12:00 BP 125/60 08/14/22 01:30 Pulse Ox 96 08/18/22 12:00 FiO2 40 08/18/22 12:00 Intake & Output 08/17/22 08/18/22 08/18/22 18:59 06:59 18:59 Intake Total 1282.803 688.754 884.983 Output Total 2365 1245 775 Balance -1082.197 -556.246 109.983 Weight 123.2 kg Intake: IV 443 146 78 0.9% @ KVO 60 110 60 Anidulafungin 200 mg In 150 Sodium Chloride 0.9% 200 ml @ 84 mls/hr IVPB ONCE ONE Rx#:[id number] Ceftazidime/Avibactam 0. 200 94 gm In Sodium Chloride 0.9% 100 ml @ 50 mls/hr IVPB Q24H [facility] Rx#: [id number] Pressure Bag 33 36 18 Intake, IV Titration 479.803 42.754 606.983 Amount Amiodarone 450 mg In 250 Dextrose 5% in Water 250 ml @ 0.5 MG/MIN 16.667 mls/hr IV .Q15H [facility] Rx#: [id number] Amiodarone 450 mg In 288.059 Dextrose 5% in Water 250 ml @ 1 MG/MIN 33.333 mls/ hr IV .Q7H30M [facility] Rx#: [id number] Norepinephrine 32 mg In 15.015 42.754 18.924 Sodium Chloride 0.9% 218 ml @ 0.5 MCG/KG/MIN 25. 547 mls/hr IV .Q9H48M [facility] Rx#:[id number] Potassium Chloride 20 meq 300 In Water For Injection 1 100ml.bag @ 50 mls/hr IVPB Q2H [facility] Rx#: [id number] Vasopressin 60 unit In 150.042 Sodium Chloride 0.9% 150 ml @ 0.04 UNITS/MIN 6.12 mls/hr IV .Q24H [facility] Rx#: [id number] propofoL 1,000 mg In 64.746 Empty Bag 1 bag @ 15 MCG/ KG/MIN 9.81 mls/hr IV . [id number] [facility] Rx#:[id number] Other 360 500 200 Output: Urine 2365 1245 775 Other: Voiding Method Indwelling Catheter Indwelling Catheter Indwelling Catheter # Bowel Movements 1 1 ABP, PAP, CO, CI - Last Documented Arterial Blood Pressure 101/43 - Exam General: Patient is intubated in ICU, sedation has been discontinued, patient is not arousable. Neck: [No adenopathy.] Cardiac: [Heart regularly irregular, tachycardic. S1/S2 were equal, there is a 1/6 systolic murmur at the right, and left sternal border Lungs: Diminished breath sounds bilaterally scattered rhonchi noted mechanically ventilated Abdomen: Somewhat distended due to her fecal retention. No organomegaly. Bowel sounds presnt and hypoactive in all 4 quadrants. This patient is morbidly obese, mild distention Extremes: Bilateral lower extremity and upper extremity edema is improved. Offloading waffle boots are in place. Skin: Multiple small wounds have bordered foam dressings in place. Neurologic: Patient is sedated and on a ventilatory support Lymphatic: [No adenopathy.] - Labs CBC & Chem 7: 08/18/22 04:30 08/18/22 04:30 Labs: Abnormal Lab Results - Last 24 Hours (Table) 08/17/22 08/17/22 08/17/22 Range/Units 17:58 20:20 23:38 WBC (3.8-10.6) k/uL RBC (3.80-5.40) m/uL Hgb (11.4-16.0) gm/dL Hct (34.0-46.0) % MCHC (31.0-37.0) g/dL RDW (11.5-15.5) % Neutrophils # (1.3-7.7) k/uL Lymphocytes # (1.0-4.8) k/uL Sodium (137-145) mmol/L Potassium 2.9 L (3.5-5.1) mmol/L Chloride (98-107) mmol/L BUN (7-17) mg/dL Creatinine (0.52-1.04) mg/dL Glucose (74-99) mg/dL POC Glucose (mg/dL) 217 H 305 H (70-110) mg/dL Calcium (8.4-10.2) mg/dL AST (14-36) U/L Alkaline Phosphatase (38-126) U/L Total Protein (6.3-8.2) g/dL Albumin (3.5-5.0) g/dL 08/18/22 08/18/22 08/18/22 Range/Units 04:30 04:30 05:49 WBC 16.5 H (3.8-10.6) k/uL RBC 2.74 L (3.80-5.40) m/uL Hgb 7.0 L (11.4-16.0) gm/dL Hct 23.9 L (34.0-46.0) % MCHC 29.1 L (31.0-37.0) g/dL RDW 17.2 H (11.5-15.5) % Neutrophils # 14.3 H (1.3-7.7) k/uL Lymphocytes # 0.9 L (1.0-4.8) k/uL Sodium 148 H (137-145) mmol/L Potassium 3.0 L (3.5-5.1) mmol/L Chloride 119 H (98-107) mmol/L BUN 58 H (7-17) mg/dL Creatinine 1.26 H (0.52-1.04) mg/dL Glucose 292 H (74-99) mg/dL POC Glucose (mg/dL) 337 H (70-110) mg/dL Calcium 7.1 L (8.4-10.2) mg/dL AST 56 H (14-36) U/L Alkaline Phosphatase 275 H (38-126) U/L Total Protein 4.4 L (6.3-8.2) g/dL Albumin 1.7 L (3.5-5.0) g/dL 08/18/22 Range/Units 11:18 WBC (3.8-10.6) k/uL RBC (3.80-5.40) m/uL Hgb (11.4-16.0) gm/dL Hct (34.0-46.0) % MCHC (31.0-37.0) g/dL RDW (11.5-15.5) % Neutrophils # (1.3-7.7) k/uL Lymphocytes # (1.0-4.8) k/uL Sodium (137-145) mmol/L Potassium (3.5-5.1) mmol/L Chloride (98-107) mmol/L BUN (7-17) mg/dL Creatinine (0.52-1.04) mg/dL Glucose (74-99) mg/dL POC Glucose (mg/dL) 337 H (70-110) mg/dL Calcium (8.4-10.2) mg/dL AST (14-36) U/L Alkaline Phosphatase (38-126) U/L Total Protein (6.3-8.2) g/dL Albumin (3.5-5.0) g/dL Microbiology - Last 24 Hours (Table) 08/14/22 15:00 Blood Culture - Preliminary Blood No Growth after 72 hours Assessment and Plan (1) Sepsis Current Visit: Yes Status: Acute Code(s): A41.9 - SEPSIS, UNSPECIFIED ORGANISM SNOMED Code(s): 31679611 (2) Acute on chronic diastolic (congestive) heart failure Current Visit: No Status: Acute Code(s): I50.33 - ACUTE ON CHRONIC DIASTOLIC (CONGESTIVE) HEART FAILURE SNOMED Code(s): 966580068 (3) Hypokalemia Current Visit: Yes Status: Acute Code(s): E87.6 - HYPOKALEMIA SNOMED Code(s): 27479729 (4) Hypocalcemia Current Visit: Yes Status: Acute Code(s): E83.51 - HYPOCALCEMIA SNOMED Code(s): 8436231 (5) Acute exacerbation of chronic obstructive pulmonary disease Current Visit: Yes Status: Acute Code(s): J44.1 - CHRONIC OBSTRUCTIVE PULMONARY DISEASE W (ACUTE) EXACERBATION SNOMED Code(s): 264755334 (6) Pneumonia Current Visit: Yes Status: Acute Code(s): J18.9 - PNEUMONIA, UNSPECIFIED O RGANISM SNOMED Code(s): 559776539 (7) Acute on chronic renal failure Current Visit: No Status: Acute Code(s): N17.9 - ACUTE KIDNEY FAILURE, UNSPECIFIED; N18.9 - CHRONIC KIDNEY DISEASE, UNSPECIFIED SNOMED Code(s): 525459855 (8) Altered mental status Current Visit: No Status: Acute Code(s): R41.82 - ALTERED MENTAL STATUS, UNSPECIFIED SNOMED Code(s): 174680807 (9) CAD (coronary atherosclerotic disease) Current Visit: No Status: Acute Code(s): I25.10 - ATHSCL HEART DISEASE OF [place] CORONARY ARTERY W/O ANG PCTRS SNOMED Code(s): 812930382 (10) Hypertension Current Visit: No Status: Acute Code(s): I10 - ESSENTIAL (PRIMARY) HYPERTENSION SNOMED Code(s): 22312539 (11) Hypoxia Current Visit: No Status: Acute Code(s): R09.02 - HYPOXEMIA SNOMED Code(s): 587321747 (12) Leukocytosis Current Visit: No Status: Acute Code(s): D72.829 - ELEVATED WHITE BLOOD CELL COUNT, UNSPECIFIED SNOMED Code(s): 738964103 (13) intermediate manager prescription opiate use Current Visit: No Status: Acute Code(s): Z79.891 - HARPOONER (CURRENT) USE OF OPIATE ANALGESIC SNOMED Code(s): 999834356 (14) Type 2 diabetes mellitus without complications Current Visit: No Status: Acute Code(s): E11.9 - TYPE 2 DIABETES MELLITUS WITHOUT COMPLICATIONS SNOMED Code(s): 465232874 (15) UTI (urinary tract infection) Current Visit: No Status: Acute Code(s): N39.0 - URINARY TRACT INFECTION, SITE NOT SPECIFIED SNOMED Code(s): 43560465 (16) Urinary retention Current Visit: No Status: Acute Code(s): R33.9 - RETENTION OF URINE, UNSPECIFIED SNOMED Code(s): 735148566 Plan: I will standby for further recommendations from critical care, infectious dise ase, Nephrology, general surgery, cardiology, repeat labs in a.m., I spent 10 minutes discussing her care with her , I'll reevaluate her in the next 24 hours.
[2022-08-18] MEDS: VASOPRESSIN 60 UNIT in SODIUM CHLORIDE 0.9% 150 ML IV SCH (18:22)
[2022-08-18 18:34] LABS: Glucose,Whole Blood 271 mg/dL (70-110)
--- NOTE | 2022-08-18 21:46 | P.PN ---
Subjective Progress Note Date: 08/18/22 Patient intubated. at bedside. Patient had extremely large bowel movement yesterday. No bowel movement today. Otherwise stable. No surgical intervention. Objective - Vital Signs Vital signs: Vital Signs Temp 97.4 F L 08/18/22 16:00 Pulse 128 H 08/18/22 19:29 Resp 30 H 08/18/22 19:00 BP 125/60 08/14/22 01:30 Pulse Ox 100 08/18/22 19:00 FiO2 40 08/18/22 19:10 Intake & Output 08/18/22 08/18/22 08/19/22 06:59 18:59 06:59 Intake Total 769.984 9403.011 13 Output Total 1245 2675 175 Balance -556.246 -627.989 -162 Weight 123.2 kg Intake: IV 146 169 13 0.9% @ KVO 110 130 10 Pressure Bag 36 39 3 Intake, IV Titration 42.754 1678.011 0 Amount Amiodarone 450 mg In 288.059 Dextrose 5% in Water 250 ml @ 1 MG/MIN 33.333 mls/ hr IV .Q7H30M [facility] Rx#: [id number] Amiodarone 450 mg In 194.442 Dextrose 5% in Water 250 ml @ 1 MG/MIN 33.333 mls/ hr IV .Q7H30M [facility] Rx#: [id number] Norepinephrine 32 mg In 42.754 39.960 Sodium Chloride 0.9% 218 ml @ 0.5 MCG/KG/MIN 25. 547 mls/hr IV .Q9H48M [facility] Rx#:[id number] Potassium Chloride 20 meq 1000 In Water For Injection 1 100ml.bag @ 50 mls/hr IVPB Q2H [facility] Rx#: [id number] Vasopressin 60 unit In 155.55 0 Sodium Chloride 0.9% 150 ml @ 0.04 UNITS/MIN 6.12 mls/hr IV .Q24H [facility] Rx#: [id number] Other 500 200 Output: Gastric Drainage 650 Urine 1245 2025 175 Other: Voiding Method Indwelling Catheter Indwelling Catheter # Bowel Movements 1 ABP, PAP, CO, CI - Last Documented Arterial Blood Pressure 99/47 - Labs CBC & Chem 7: 08/18/22 04:30 02/17/23 15:30 Labs: Abnormal Lab Results - Last 24 Hours (Table) 08/17/22 08/17/22 08/18/22 Range/Units 20:20 23:38 04:30 WBC (3.8-10.6) k/uL RBC (3.80-5.40) m/uL Hgb (11.4-16.0) gm/dL Hct (34.0-46.0) % MCHC (31.0-37.0) g/dL RDW (11.5-15.5) % Neutrophils # (1.3-7.7) k/uL Lymphocytes # (1.0-4.8) k/uL Sodium 148 H (137-145) mmol/L Potassium 2.9 L 3.0 L (3.5-5.1) mmol/L Chloride 119 H (98-107) mmol/L BUN 58 H (7-17) mg/dL Creatinine 1.26 H (0.52-1.04) mg/dL Glucose 292 H (74-99) mg/dL POC Glucose (mg/dL) 305 H (70-110) mg/dL Calcium 7.1 L (8.4-10.2) mg/dL AST 56 H (14-36) U/L Alkaline Phosphatase 275 H (38-126) U/L Total Protein 4.4 L (6.3-8.2) g/dL Albumin 1.7 L (3.5-5.0) g/dL 08/18/22 08/18/22 08/18/22 Range/Units 04:30 05:49 11:18 WBC 16.5 H (3.8-10.6) k/uL RBC 2.74 L (3.80-5.40) m/uL Hgb 7.0 L (11.4-16.0) gm/dL Hct 23.9 L (34.0-46.0) % MCHC 29.1 L (31.0-37.0) g/dL RDW 17.2 H (11.5-15.5) % Neutrophils # 14.3 H (1.3-7.7) k/uL Lymphocytes # 0.9 L (1.0-4.8) k/uL Sodium (137-145) mmol/L Potassium (3.5-5.1) mmol/L Chloride (98-107) mmol/L BUN (7-17) mg/dL Creatinine (0.52-1.04) mg/dL Glucose (74-99) mg/dL POC Glucose (mg/dL) 337 H 337 H (70-110) mg/dL Calcium (8.4-10.2) mg/dL AST (14-36) U/L Alkaline Phosphatase (38-126) U/L Total Protein (6.3-8.2) g/dL Albumin (3.5-5.0) g/dL 08/18/22 08/18/22 Range/Units 15:30 18:33 WBC (3.8-10.6) k/uL RBC (3.80-5.40) m/uL Hgb (11.4-16.0) gm/dL Hct (34.0-46.0) % MCHC (31.0-37.0) g/dL RDW (11.5-15.5) % Neutrophils # (1.3-7.7) k/uL Lymphocytes # (1.0-4.8) k/uL Sodium (137-145) mmol/L Potassium 3.4 L (3.5-5.1) mmol/L Chloride (98-107) mmol/L BUN (7-17) mg/dL Creatinine (0.52-1.04) mg/dL Glucose (74-99) mg/dL POC Glucose (mg/dL) 271 H (70-110) mg/dL Calcium (8.4-10.2) mg/dL AST (14-36) U/L Alkaline Phosphatase (38-126) U/L Total Protein (6.3-8.2) g/dL Albumin (3.5-5.0) g/dL Microbiology - Last 24 Hours (Table) 08/14/22 15:00 Blood Culture - Preliminary Blood No Growth after 96 hours
--- NOTE | 2022-08-18 23:03 | P.PN ---
Subjective Progress Note Date: 08/18/22 Principal diagnosis: Sepsis/septic shock Patient is a 87-year-old female with multiple comorbidities presented to the hospital with a syncopal episode weakness subsequently hypotension, sepsis requiring transfer to the ICU and intubation on the vent. On today's evaluation that is 08/18/2022, the patient continues to be afebrile, the patient continues to be requiring less pressor support to maintain her blood pressure per the nursing staff, the patient FiO2 is currently stable at 40 %, no significant purulent secretions through the ET , patient did have NG to suct ion and the patient is currently on TPN Objective - Vital Signs Vital signs: Vital Signs Temp 98.2 F 08/18/22 12:00 Pulse 130 H 08/18/22 12:17 Resp 30 H 08/18/22 12:00 BP 125/60 08/14/22 01:30 Pulse Ox 96 08/18/22 12:00 FiO2 40 08/18/22 12:00 Intake & Output 08/17/22 08/18/22 08/18/22 18:59 06:59 18:59 Intake Total 1282.803 688.754 884.983 Output Total 2365 1245 775 Balance -1082.197 -556.246 109.983 Weight 123.2 kg Intake: IV 443 146 78 0.9% @ KVO 60 110 60 Anidulafungin 200 mg In 150 Sodium Chloride 0.9% 200 ml @ 84 mls/hr IVPB ONCE ONE Rx#:[id number] Ceftazidime/Avibactam 0. 200 94 gm In Sodium Chloride 0.9% 100 ml @ 50 mls/hr IVPB Q24H [facility] Rx#: [id number] Pressure Bag 33 36 18 Intake, IV Titration 479.803 42.754 606.983 Amount Amiodarone 450 mg In 250 Dextrose 5% in Water 250 ml @ 0.5 MG/MIN 16.667 mls/hr IV .Q15H [facility] Rx#: [id number] Amiodarone 450 mg In 288.059 Dextrose 5% in Water 250 ml @ 1 MG/MIN 33.333 mls/ hr IV .Q7H30M [facility] Rx#: [id number] Norepinephrine 32 mg In 15.015 42.754 18.924 Sodium Chloride 0.9% 218 ml @ 0.5 MCG/KG/MIN 25. 547 mls/hr IV .Q9H48M [facility] Rx#:[id number] Potassium Chloride 20 meq 300 In Water For Injection 1 100ml.bag @ 50 mls/hr IVPB Q2H [facility] Rx#: [id number] Vasopressin 60 unit In 150.042 Sodium Chloride 0.9% 150 ml @ 0.04 UNITS/MIN 6.12 mls/hr IV .Q24H [facility] Rx#: [id number] propofoL 1,000 mg In 64.746 Empty Bag 1 bag @ 15 MCG/ KG/MIN 9.81 mls/hr IV . [id number] [facility] Rx#:[id number] Other 360 500 200 Output: Urine 2365 1245 775 Other: Voiding Method Indwelling Catheter Indwelling Catheter Indwelling Catheter # Bowel Movements 1 1 ABP, PAP, CO, CI - Last Documented Arterial Blood Pressure 101/43 - Exam GENERAL DESCRIPTION: An elderly female intubated on the vent RESPIRATORY SYSTEM: Unlabored breathing , decreased breath sounds at bases HEART: S1 S2 regular rate and rhythm , ABDOMEN: Soft , no tenderness EXTREMITIES: Lower extremity swelling no redness - Labs CBC & Chem 7: 08/18/22 04:30 08/18/22 15:30 Labs: Abnormal Lab Results - Last 24 Hours (Table) 08/17/22 08/17/22 08/17/22 Range/Units 17:58 20:20 23:38 WBC (3.8-10.6) k/uL RBC (3.80-5.40) m/uL Hgb (11.4-16.0) gm/dL Hct (34.0-46.0) % MCHC (31.0-37.0) g/dL RDW (11.5-15.5) % Neutrophils # (1.3-7.7) k/uL Lymphocytes # (1.0-4.8) k/uL Sodium (137-145) mmol/L Potassium 2.9 L (3.5-5.1) mmol/L Chloride (98-107) mmol/L BUN (7-17) mg/dL Creatinine (0.52-1.04) mg/dL Glucose (74-99) mg/dL POC Glucose (mg/dL) 217 H 305 H (70-110) mg/dL Calcium (8.4-10.2) mg/dL AST (14-36) U/L Alkaline Phosphatase (38-126) U/L Total Protein (6.3-8.2) g/dL Albumin (3.5-5.0) g/dL 08/18/22 08/18/22 08/18/22 Range/Units 04:30 04:30 05:49 WBC 16.5 H (3.8-10.6) k/uL RBC 2.74 L (3.80-5.40) m/uL Hgb 7.0 L (11.4-16.0) gm/dL Hct 23.9 L (34.0-46.0) % MCHC 29.1 L (31.0-37.0) g/dL RDW 17.2 H (11.5-15.5) % Neutrophils # 14.3 H (1.3-7.7) k/uL Lymphocytes # 0.9 L (1.0-4.8) k/uL Sodium 148 H (137-145) mmol/L Potassium 3.0 L (3.5-5.1) mmol/L Chloride 119 H (98-107) mmol/L BUN 58 H (7-17) mg/dL Creatinine 1.26 H (0.52-1.04) mg/dL Glucose 292 H (74-99) mg/dL POC Glucose (mg/dL) 337 H (70-110) mg/dL Calcium 7.1 L (8.4-10.2) mg/dL AST 56 H (14-36) U/L Alkaline Phosphatase 275 H (38-126) U/L Total Protein 4.4 L (6.3-8.2) g/dL Albumin 1.7 L (3.5-5.0) g/dL 08/18/22 Range/Units 11:18 WBC (3.8-10.6) k/uL RBC (3.80-5.40) m/uL Hgb (11.4-16.0) gm/dL Hct (34.0-46.0) % MCHC (31.0-37.0) g/dL RDW (11.5-15.5) % Neutrophils # (1.3-7.7) k/uL Lymphocytes # (1.0-4.8) k/uL Sodium (137-145) mmol/L Potassium (3.5-5.1) mmol/L Chloride (98-107) mmol/L BUN (7-17) mg/dL Creatinine (0.52-1.04) mg/dL Glucose (74-99) mg/dL POC Glucose (mg/dL) 337 H (70-110) mg/dL Calcium (8.4-10.2) mg/dL AST (14-36) U/L Alkaline Phosphatase (38-126) U/L Total Protein (6.3-8.2) g/dL Albumin (3.5-5.0) g/dL Microbiology - Last 24 Hours (Table) 08/14/22 15:00 Blood Culture - Preliminary Blood No Growth after 72 hours Assessment and Plan (1) Sepsis Current Visit: Yes Status: Acute Code(s): A41.9 - SEPSIS, UNSPECIFIED ORGANISM SNOMED Code(s): 69645277 (2) UTI (urinary tract infection) Current Visit: No Status: Acute Code(s): N39.0 - URINARY TRACT INFECTION, SITE NOT SPECIFIED SNOMED Code(s): 11741629 Plan: 1patient with sepsis/septic shock in this patient is in the hospital with syncopal episode of weakness patient is now intubated on the vent and requiring high dose pressor support to maintain her blood pressure, the patient is growing gram-negative bacilli in the blood could be related to the urine as she is growing gram-negative as well as enterococcus in the urine versus related to the right lower lobe pneumonia and possible abdominal source 2 urine culture did grew drug resistant Pseudomonas , blood culture is growing gram-negative which has been identified as anaerobic gram-negative bacilli, and repeat blood culture is growing yeast likely GI source, 3 patient slowly clinically improving fever pattern has improved white count is trending down, patient to continue with Zerbexa and Eraxis , and monitor clinical course closely at the bedside questions were answered Time with Patient: Less than 30
[2022-08-19 00:25] LABS: Glucose,Whole Blood 160 mg/dL (70-110)
[2022-08-19] MEDS: CEFTOLOZANE/TAZOBACTAM 0.75 GM in SODIUM CHLORIDE 0.9% 100 ML IV SCH ×4 (00:28→23:40)
[2022-08-19] MEDS: 1: MVI, ADULT NO.4 WITH VIT K 10 ML, TRACE (CONC-1ML/DOSE) 1 ML, POTASSIUM ACETATE 20 ME IV SCH ×17 (00:29→15:31)
[2022-08-19] MEDS: METOCLOPRAMIDE 5 MG/ML 2 ML VIAL IVP SCH ×2 (00:33→06:07)
[2022-08-19] MEDS: INSULIN ASPART (NovoLOG) 100 UNIT/ML VIAL SQ SCH ×5 (00:33→23:52)
[2022-08-19] MEDS: AMIODARONE 450 MG in DEXTROSE 5% IN WATER 250 ML IV SCH ×8 (00:56→23:30)
[2022-08-19] MEDS: IPRATROPIUM-ALBUTEROL 3 ML NEB INHALATION SCH ×6 (04:00→23:52)
[2022-08-19] MEDS: NOREPINEPHRINE 32 MG in SODIUM CHLORIDE 0.9% 218 ML IV SCH ×3 (04:06→19:39)
[2022-08-19 05:28] LABS: Glucose,Whole Blood 243 mg/dL (70-110)
[2022-08-19 05:44] LABS: ABG Base Excess -2.4 mmol/L; ABG HCO3 23 mmol/L (21-25); ABG Oxygen Saturation 97.5 % (94-97); ABG PCO2 40 mmHg (35-45); ABG PH 7.37 (7.35-7.45); ABG PO2 99 mmHg (83-108); ABG TCO2 24 mmol/L (19-24); Allen Test Performed? Yes
[2022-08-19 06:18] LABS: Albumin 1.7 g/dL (3.5-5.0); Calcium 7.3 mg/dL (8.4-10.2); Magnesium 1.8 mg/dL (1.6-2.3); Phosphorus 2.7 mg/dL (2.5-4.5); Potassium 3.4 mmol/L (3.5-5.1); Total Bilirubin 0.3 mg/dL (0.2-1.3); Total Protein 4.4 g/dL (6.3-8.2)
--- NOTE | 2022-08-19 06:52 | XR ---
EXAMINATION TYPE: XR chest 1V portable DATE OF EXAM: 08/19/2022 COMPARISON: 08/18/2022 HISTORY: SOB, Follow Up FINDINGS: Indwelling tubes and catheters are unchanged. No change in bibasilar opacities. Stable appearance of the cardio-mediastinal structures at this time. Pleural effusion unchanged. IMPRESSION: 1. Stable portable chest. Clinical correlation and follow up until resolution is recommended.
[2022-08-19] MEDS: POTASSIUM CHLORIDE 20 MEQ in WATER FOR INJECTION 1 100ML.BAG IVPB SCH ×2 (07:03→09:58)
[2022-08-19] MEDS: INSULIN DETEMIR (LEVEMIR) 100 UNIT/ML SYR SQ SCH (07:52)
[2022-08-19] MEDS: FORMOTEROL FUMARATE 20 MCG/2 ML NEBU INHALATION SCH ×2 (08:11→19:39)
[2022-08-19] MEDS: BUDESONIDE 1 MG/2 ML NEBU INHALATION SCH ×2 (08:11→19:39)
[2022-08-19 08:18] LABS: Anisocytosis Slight; HCT 23.7 % (34.0-46.0); Hypochromasia Marked; MCHC 29.1 g/dL (31.0-37.0); MCV 89.5 fL (80.0-100.0); Mean Platelet Volume 9.4; Platelet Count 280 k/uL (150-450); RBC 2.64 m/uL (3.80-5.40); RDW 16.8 % (11.5-15.5); WBC 19.9 k/uL (3.8-10.6)
[2022-08-19 08:30] LABS: HGB 6.9 gm/dL (11.4-16.0)
--- NOTE | 2022-08-19 09:23 | P.PN ---
Progress Note - Text Progress Note Date: 08/19/22 The patient remains stable. She had a large bowel movement yesterday. Abdomen is soft. Resolving constipation. Patient will continue supportive care.
--- NOTE | 2022-08-19 09:47 | P.PN ---
Subjective Patient is seen in follow-up for acute kidney injury. Renal function improving. Nonoliguric. Intubated. Currently on Levophed and vasopressin. Receiving water flushes. Also receiving TPN. Vital signs are stable. On vasopressor support. General: Resting in bed. HEENT: Intubated. LUNGS: Breath sounds decreased. HEART: Irregular rate and rhythm. ABDOMEN: Soft, obese. EXTREMITITES: Trace edema. Objective - Vital Signs Vital signs: Vital Signs Temp 101 F H 08/19/22 08:09 Pulse 125 H 08/19/22 08:35 Resp 31 H 08/19/22 08:09 BP 101/46 08/19/22 08:09 Pulse Ox 95 08/19/22 08:09 FiO2 40 08/19/22 08:09 Intake & Output 08/18/22 08/19/22 08/19/22 18:59 06:59 18:59 Intake Total 2047.011 2144.970 433.731 Output Total 2675 1005 875 Balance -040.276 4075.970 -441.269 Weight 123.2 kg Intake: IV 169 117 26 0.9% @ KVO 130 90 20 Pressure Bag 39 27 6 Intake, IV Titration 5981.357 9951.970 407.731 Amount Amiodarone 450 mg In 288.059 Dextrose 5% in Water 250 ml @ 1 MG/MIN 33.333 mls/ hr IV .Q7H30M [facility] Rx#: [id number] Amiodarone 450 mg In 194.442 218.887 234.442 Dextrose 5% in Water 250 ml @ 1 MG/MIN 33.333 mls/ hr IV .Q7H30M [facility] Rx#: [id number] Mvi, Adult No.4 with Vit 1031 K 10 ml Trace (Conc-1Ml/ Dose) 1 ml Potassium Acetate 20 meq Calcium Gluconate 1 gm In Amino Acid 5%-D15w 1,000 ml @ 68 mls/hr IV .BY DURATION [facility] Rx#:[id number] Mvi, Adult No.4 with Vit 408 68 K 10 ml Trace (Conc-1Ml/ Dose) 1 ml Potassium Acetate 20 meq Calcium Gluconate 1 gm Magnesium Sulfate gm 0.5 gm Potassium Phosphate 10 mmol In Amino Acid 5%- D15w 1,000 ml @ 68 mls/hr IV .BY DURATION [facility] Rx#: [id number] Norepinephrine 32 mg In 39.960 20.083 5.289 Sodium Chloride 0.9% 218 ml @ 0.5 MCG/KG/MIN 25. 547 mls/hr IV .Q9H48M [facility] Rx#:[id number] Potassium Chloride 20 meq 1000 100 In Water For Injection 1 100ml.bag @ 50 mls/hr IVPB Q2H [facility] Rx#: [id number] Potassium Chloride 20 meq 100 In Water For Injection 1 100ml.bag @ 50 mls/hr IVPB Q2H [facility] Rx#: [id number] Vasopressin 60 unit In 155.55 0 Sodium Chloride 0.9% 150 ml @ 0.04 UNITS/MIN 6.12 mls/hr IV .Q24H [facility] Rx#: [id number] Other 200 250 Output: Gastric Drainage 650 350 Urine 2025 1005 325 Stool 200 Other: Voiding Method Indwelling Catheter Indwelling Catheter ABP, PAP, CO, CI - Last Documented Arterial Blood Pressure 107/48 - Labs CBC & Chem 7: 08/19/22 05:10 08/19/22 05:10 Labs: Abnormal Lab Results - Last 24 Hours (Table) 08/18/22 08/18/22 08/18/22 Range/Units 11:18 15:30 18:33 WBC (3.8-10.6) k/uL RBC (3.80-5.40) m/uL Hgb (11.4-16.0) gm/dL Hct (34.0-46.0) % MCHC (31.0-37.0) g/dL RDW (11.5-15.5) % ABG O2 Saturation (94-97) % Sodium (137-145) mmol/L Potassium 3.4 L (3.5-5.1) mmol/L Chloride (98-107) mmol/L BUN (7-17) mg/dL Creatinine (0.52-1.04) mg/dL Glucose (74-99) mg/dL POC Glucose (mg/dL) 337 H 271 H (70-110) mg/dL Calcium (8.4-10.2) mg/dL AST (14-36) U/L Alkaline Phosphatase (38-126) U/L Total Protein (6.3-8.2) g/dL Albumin (3.5-5.0) g/dL 08/19/22 08/19/22 08/19/22 Range/Units 00:24 05:10 05:10 WBC 19.9 H (3.8-10.6) k/uL RBC 2.64 L (3.80-5.40) m/uL Hgb 6.9 L* (11.4-16.0) gm/dL Hct 23.7 L (34.0-46.0) % MCHC 29.1 L (31.0-37.0) g/dL RDW 16.8 H (11.5-15.5) % ABG O2 Saturation (94-97) % Sodium 147 H (137-145) mmol/L Potassium 3.4 L (3.5-5.1) mmol/L Chloride 118 H (98-107) mmol/L BUN 56 H (7-17) mg/dL Creatinine 1.11 H (0.52-1.04) mg/dL Glucose 203 H (74-99) mg/dL POC Glucose (mg/dL) 160 H (70-110) mg/dL Calcium 7.3 L (8.4-10.2) mg/dL AST 45 H (14-36) U/L Alkaline Phosphatase 267 H (38-126) U/L Total Protein 4.4 L (6.3-8.2) g/dL Albumin 1.7 L (3.5-5.0) g/dL 08/19/22 08/19/22 Range/Units 05:26 05:28 WBC (3.8-10.6) k/uL RBC (3.80-5.40) m/uL Hgb (11.4-16.0) gm/dL Hct (34.0-46.0) % MCHC (31.0-37.0) g/dL RDW (11.5-15.5) % ABG O2 Saturation 97.5 H (94-97) % Sodium (137-145) mmol/L Potassium (3.5-5.1) mmol/L Chloride (98-107) mmol/L BUN (7-17) mg/dL Creatinine (0.52-1.04) mg/dL Glucose (74-99) mg/dL POC Glucose (mg/dL) 243 H (70-110) mg/dL Calcium (8.4-10.2) mg/dL AST (14-36) U/L Alkaline Phosphatase (38-126) U/L Total Protein (6.3-8.2) g/dL Albumin (3.5-5.0) g/dL Microbiology - Last 24 Hours (Table) 08/14/22 15:00 Blood Culture - Preliminary Blood No Growth after 96 hours Assessment and Plan Plan: Assessment: 1. Acute kidney injury secondary to ATN secondary to septic shock. Baseline creatinine near 0.8 from June 2022 - peaked at 2.77 this admission - 1.11 today. No hydronephrosis noted on CAT scan. 2. Septic shock secondary to UTI, fungemia and bacteremia. On antibiotics/antifungal and vasopressor support. 3. Metabolic acidosis secondary to acute kidney injury and IV. s/p bicarb drip. Improved. 4. Hypokalemia from poor intake and diuresis. Replaced. 5. Acute hypoxic respiratory failure. 6. A. fib with RVR. On amiodarone drip. Cardiology following. 8. Hypernatremia from lack of oral water intake. Plan: Increase water flushes to 400 mL every 4 hours. Wean FiO2 and vasopressors. Avoid nephrotoxins. Hemoglobin 6.9. Defer blood transfusion to ICU team. Continue to monitor renal function and urine output.
[2022-08-19] MEDS: CHLORHEXIDINE GLUCONATE 15 ML CUP MUCOUS MEM SCH ×2 (10:01→21:45)
[2022-08-19] MEDS: PANTOPRAZOLE 40 MG/10 ML VIAL IVP SCH (10:01)
[2022-08-19] MEDS: LACTULOSE 20 GM/30 ML CUP PO SCH ×2 (10:01→10:28)
[2022-08-19] MEDS: TAMSULOSIN 0.4 MG CAP.ER.24H PO SCH (10:02)
[2022-08-19] MEDS: APIXABAN 5 MG TAB PO SCH ×2 (10:02→21:45)
[2022-08-19] MEDS: polyethylene glycoL 3350 17 GM POWD.PACK PO SCH ×2 (10:03→21:45)
--- NOTE | 2022-08-19 10:25 | P.PN ---
Subjective Progress Note Date: 08/19/22 cements, hypothyroidism, morbid obesity, multiple orthopedic surgeries, congestive heart failure, diabetes bella, hypertension, hyperlipidemia, osteoarthritis, obstructive sleep apnea on BiPAP, CVA/TIA, oxygen dependent and she was recently discharged from here to [facility] on the [place] and was just home for 3 days when she developed a syncopal episode yesterday. Her that may related to low blood sugar and try to give her oral issues which she vomited. She was brought into the emergency room yesterday. She is seen today in consultation. She remains in the emergency department. She is sitting up in bed. She is basically just moaning and groaning. Her family is at the bedside and provides him permission. She was initially placed on BiPAP. She is currently on 6 L high flow nasal cannula with O2 saturations in the 90s. Afebrile. Somewhat hypotensive. Blood culture reveals no growth to date. Urine culture pending. White count 19.1. Hemoglobin 8.0. Sodium 136. Potassium 4.6. Bicarb 17. BUN 66. Creatinine 2.27. Glucose 145. D-dimer 4.73. ProBNP 426. Troponin negative 1. CT angiogram ruled out pulmonary embolism. There is evidence of cardiomegaly with pulmonary vascular congestion. Scattered airspace opacities more consolidation in the right lung base. Rule out aspiration. Computed tomography scan of the abdomen and pelvis revealed extensive stool burden throughout the colon. 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 Today's chest x-ray shows Nasogastric tube in place. Mild cardiomegaly with bibasilar acute infiltrate and/or ate lectasis. She's been initiated on Symbicort, DuoNeb inhalations, antibiotics in the form of Levaquin. She is anticoagulated with Eliquis. The patient is seen today for per 2022 in follow-up in the intensive care unit. Just after midnight they called an a team on her due to her being obtun ded and hypotensive. She was on the sixth liter Ventimask and they do arterial blood gases that revealed a pO2 of 136, pCO2 31, pH 7.28. She was placed on BiPAP 12/5 and 50% and transferred into the intensive care unit. She received 3 A of sodium bicarb. She has D5W with 3 A of sodium bicarb at 75 ML's per hour. She is on norepinephrine at 27 mcg/m. Vasopressin at 0.03 units per minute. 0.9 normal saline at 20 mL per hour. She did undergo central line placement and arterial line placement. Follow-up blood gases reveal a pO2 of 295. PCO2 of 48. PH is 7.20 100% FiO2. White count 8.7. Hemoglobin 8.2. Platelets 311. Sodium 134. Potassium 6.3. Chloride 110. Bicarb 13. BUN 81. Creatinine 2.68. Glucose 134. Pro-calcitonin 11.0. She remains on bronchodilators. Continued on antibiotics in the form of Levaquin and cefepime. Her culture positive for group D enterococcus and gram-negative bacilli. Blood culture reveals no growth. The patient is seen today 08/11/2022 in follow-up in the intensive care unit. She did have progressive shortness of breath and hypoxemia and was subsequently intubated and placed on mechanical ventilator yesterday. He is currently on assist control mode with a rate of 20, tidal volume 400, FiO2 50% PEEP of 5. Morning blood gases revealed a PaO2 of 99, pCO2 45, pH 7.30 that was on 60% FiO2. She developed atrial fibrillation requiring amiodarone as well. She is hypotensive and requiring norepinephrine at 55 mcg/m, vasopressin at 0.04 units per minute. She remains on D5W with 3 A of bicarbonate 100 ML's per hour. 0.9 normal saline at 20 ML's per hour. She remains on antibiotics in the form of Levaquin, cefepime and daptomycin. Urine culture is positive for Enterococcus faecalis and Pseudomonas aeruginosa. Blood cultures showing no growth. Chest x-ray reveals no significant change. Stable appearance of the cardiomediastinal structures. Pleural effusion unchanged. No change in bibasilar opacities. White count 12.2. Hemoglobin 8.6. Platelets 349. Sodium 139. Potassium 5.1. Bicarb 22. BUN 79. Creatinine 2.74. Glucose 221. Lactic acid 3.2. Calcium 5.8. Cortisol 45. She is continued on DuoNeb inhalations, Pulmicort and Perforomist inhalations. The patient is seen today 08/12/2022 in follow-up in the intensive care unit. She remains intubated on the mechanical ventilator in assist control mode at a r ate of 28, tidal volume 400, FiO2 50% and PEEP of 5. Morning blood gases revealed a pO2 of 115, pCO2 40, pH 7.4. She is currently sedated on propofol at 25 mcg/kg/m. She is on normal saline at 100 mL an hour. She is still requiring pressors in the form of norepinephrine at 55 mcg/m and vasopressin at 0.04 units per minute. She remains on antibiotics in the form of Zerbaxa, Levaquin and daptomycin. Urine culture was positive for Enterococcus faecalis and Pseudomonas aeruginosa. Blood cultures have revealed no growth. Sputum culture pending. White count 6.8. Hemoglobin 8.4. Platelets 268. Sodium 140. Potassium 4.5. BUN 81. Creatinine 2.72. Glucose 162. Calcium 6.0. AST 166. ALT 21. Alk phos 385. Currently in a +3.1 L balance. She is continued on DuoNeb inhalations, Pulmicort and Perforomist inhalations. The patient is seen today 08/13/2022 in follow-up in the intensive care unit. He remains intubated and on mechanical ventilator currently and assist-control mode at a rate of 28, tidal volume 400, FiO2 40% and a PEEP of 5. Morning blood gases revealed a pO2 of 100, pCO2 is 88 and a pH of 7.35. She did have issues with atrial fibrillation and rapid ventricular response and was seen by cardiology earlier this morning who initiated amiodarone bolus and started a drip at 1 mg/m. She has normal saline at 100 MLS per hour. Propofol at 20 mcg/kg/m. Norepinephrine at 36 mcg/m and vasopressin at 0.04 units per minute. Tube feeds are currently on hold per surgery for possible ileus. Chest x-ray shows similar bibasilar airspace opacities. Urine culture positive for Enterococcus faecalis and pseudomonas aeruginosa. Blood culture preliminary positive for anaerobic gram-negative bacilli. Sputum culture hasn't for Ange. White count 9.6. Hemoglobin 8.2. Platelets 244. Sodium 141. Potassium 3.5. Bicarb 20. BUN 75. Creatinine 2.52. Glucose 159. Calcium 5.6. AST 162. ALT 19. Albumin 1.8. Currently in a +312 mL balance. She is currently on bronchodilators. Remains on Eraxis, Zerbaxa, daptomycin. Currently on Lovenox with pharmacy to dose. 08/14/2022, I'm seeing the patient for a follow-up. A very complicated case of a septic shock and 87-year-old female patient weighs currently on mechanical ventilator. The patient has had recurrent [place] tract infection in addition to multitude of comorbidities. She came with a septic shock and suspected bowel obstruction. In summary, the patient came with a septic shock and multisystem organ failure, currently intubated on a mechanical ventilator. This morning, she is on propofol running at 20 mcg/kg/m and she is calm and comfortable in bed at 6 with a mechanical ventilator. She'll assist-control mode of mechanical ventilation at the rate of 28 with a tidal volume of 400 and FiO2 40% with a PEEP of 5. Blood gas from today shows a pH of 7.37 with a pCO2 of 38 and pO2 113. Chest x-ray was also noted from today and there is adequate positioning of the orotracheal tube. There is also persistent bilateral pulmonary infiltrates and small effusions. There may be an underlying component of CHF. Airspace disease is seen in the left perihilar and right lower lobe area. Hemod ynamically, the patient is on pressors and norepinephrine is running at 0.14 mcg/kg/m and she is also on a physiologic dose of vasopressin. She remains active fibrillation and she does have a rapid ventricular response in her heart rate is around 120. She is on a broad-spectrum antibiotic coverage. She is currently on a combination of an axis and Zerbaxa and the cultures that were obtained earlier showed Pseudomonas that was multidrug resistance and Enterococcus faecalis in her urine, there was an anaerobic gram-negative bacillus in the blood, and there was also Ange and the blood. Hence, the antibiotic coverage was adjusted. In terms of her white cell count, she is currently running a white second of 11.2 with a hemoglobin of 7.8 and a platelet count of 229. Electrolytes are stable with a sodium of 144, potassium is at 3.0 with these to be replaced, BUN is at 67 with a creatinine of 2.21. The blood sugars at 147. The patient was taken off the amiodarone drip. The patient is on Levemir insulin 10 units and she is also receiving a sliding scale coverage. She is nothing by mouth. NG tube is in place. Output has been dark gastric material and output is minimal in the order of 500 mL per 24 hours, quite liquidy. Abdomen is soft, the patient was given several enemas without any successful bowel movement. Her previous echocardiogram from March 2022 as shown a moderate degree of aortic stenosis. Hylton cath is in place. Urine output is in order of 100 mL an hour and the patient is currently on IV fluids in the form of normal saline at rate of 50 mL an hour. She is afebrile. The patient also has a stage II wound in her coccyx. Fluid balance over the past 24 hours has been in the order of 730 mL. 08/15/2022, the patient remains intubated on a mechanical ventilator and the patient is being seen for a follow-up. Obviously, the patient is still septic, hypotensive, with evidence of multisystem organ failure, still on pressors, still intubated on a mechanical ventilator. As summary, over the past 24 hours, the patient was kept on mechanical ventilator, kept on antibiotics and pressors. This morning, she is sedated with propofol which is running at 30 mcg/kg/m. She is fairly sentences mechanical ventilator. She is on assist-control mode at a rate of 28, tidal volume of 100, FiO2 40% with a PEEP of 5. The peak airway pressure is 25. The blood gas shows a pH of 7.32 with a pCO2 of 39 and a pO2 of 106. Chest x-ray findings of essentially unchanged with some limited airspace disease in the lung bases bilaterally. Orotracheal tube remains in a good location. Hemodynamically, the patient is on IV fluids running at 10 mL an hour of normal saline. She has been in a positive fluid balance. She has been off pressors and the patient is on a physiologic dose of vasopressin and norepinephrine infusion was brought up to 0.2 mcg/kg/m and this is slightly higher compared to yesterday. Review blood cultures were sent yesterday. The patient is still in tachycardia with an underlying rhythm of atrial fibrillation. Her previous echocardiogram from March 2022 was essentially within normal limits. The antibiotic coverage is essentially the same and the patient remains on a combination of Eraxis and Zerbaxa. She is spiking low- grade fevers and her T-max is 100.5. In terms of her feeding, I was again his TPN specially with her systemic fungal anemia. We will give the patient rectal exam and there was no identifiable stool in the rectum. Flat film of the abdomen showed constipation and fecal stasis. Based on that, the patient was given lactulose. She was started on triple feeding again and currently she is on vital AF at the rate of 10 mL an hour. We are going to also start the patient on lactulose and gradually advance her diet. Hoping to have a bowel movement. She had a smear on a bowel movement yesterday. In terms of fluid balance, the patient has been in a positive fluid balance of 250 mL over the pas t 24 hours. The rest of the blood work shows a white cell count of 11.2 from yesterday. Repeat blood work is pending for now in terms of CBC. The sodium is at 145, potassium is at 3.8, serum bicarb is at 19, BUN 61 with a creatinine of 1.7. Total calcium levels at 6.4 and ionized calcium is normal at 4.5. AST is at 106, ALP is at 14, alkaline phosphatase is at 311, serum albumin is at 1.7 with a total protein of 4.0. She has a stage II coccygeal wounds. Condition remains critical. Family is at the bedside. 08/16 2022, remains on a mechanical ventilator and the patient is being seen in follow-up. The patient this morning is on a propofol running at 15 mcg/kg/m. Within the proximal of gradually cutting down the sedation and assessing the patient's underlying mental status. Meanwhile, she remains septic in a mechanical ventilator and she is still hypotensive although her pressor requirements have somewhat improved compared to yesterday. this morning, she did assist-control at the rate of 28, tidal volume of 400, FiO2 40% with a PEEP of 5. The chest x-ray shows essentially no interval change with some limited airspace disease in the lung bases more so on the right. The blood gas showed a pH of 7.36 with a pCO2 of 39 and pO2 of 107. She is quite interested a mechanical ventilator. She is on IV fluids at KVO. She is on norepinephrine at 0.1 for microvascular kilogram per minute and she is also on physiologic dose of vasopressin. Her overall fluid balance since yesterday has been in the order of +254 mL. She is producing adequate amount of urine output and renal function continues to improve. On today's blood work, her sodium level is at 147, potassium level of 3.5, BUN is 59 with a creatinine of 1.59. The white cell count remains elevated at 20.2 with a hemoglobin of 7.8 and a platelet count of 272. Review blood cultures have been sent and the cultures are negative for now and the patient remains on the same antibiotic coverage which included Eraxis and Zerbaxa. . Another issue is constipation and difficulty to feed this patient. I did not favor TPN because of an underlying systemic candidemia. I try to check with either and she had increased residuals. For now, she is on a combination of MiraLAX, lactulose and Reglan. She did have a smear of stool earlier. She hasn't had any significant feeding for the past 5 days. At the same time, cardiac rhythm is atrial fibrillation. The patient remains on amiodarone at 0.5 mg/m. Her rate is ranging between 120 and 130. She is maintaining her pressure while being on pressors. 08/17/2022, patient remains intubated on a mechanical ventilator. She was given a sedation holiday yesterday. There was no meaningful neurologic recovery. The patient started breathing above the vent and she was becoming more tachypneic. Based on that, she was restarted at a lower dose of propofol which is currently at 10 mcg/kg/m. She remains intubated on a mechanical ventilator. She did assist-control mode at the rate of 28 with a tidal volume of 400 and FiO2 of 40% with a PEEP of 5. Correction patient is stable with a pO2 115. Her pH is at 7.32 with a pCO2 of 40. Her chest x-ray findings remain essentially unchanged. In terms of her GI tract, were unable to feed the patient and the patient is currently on TPN for nutritional support running at a rate of 30 mL an hour. The patient has been NG tube in place. She is receiving lactulose 4 times a day, IV Reglan and MiraLAX. No bowel movement activity yet. No abdominal distention. No abdominal pain or tenderness. The patient is doing better hemodynamically. She is on less pressors. Her norepinephrine is Down to 0.07 mcg/kg/m that she remains on vasopressin physiologic dose. She remains on the same antibiotic coverage for now. She is afebrile. The white cell count currently is at 19.7 with a hemoglobin of 7.3. Platelet count is at 283. The white cell count is stable compared to yesterday. The cultures from before were noted and the patient has been kept on a combination of Zerbaxa and Eraxis. She remains in atrial fibrillation and the patient remains on amiodarone at a dose of 0.5 mg/m. Heart rate is on the adequate control for now. Meanwhile, her sodium level today is at 147 and the patient continues to receive free water flushes through her OG. Her potassium is at 3.3, he is a 57 with a creatinine of 1.58. Potassium is at 3.3. LFTs are adequate with a drop in the alkaline phosphatase is down to 273, AST is at 70, ALTs at 21. The patient has a blood sugar of 273. The patient has been started on Levemir 10 units daily plus a sliding scale coverage. We will make further adjustments based on her blood sugar control over the next 24 hours. The patient is currently on KVO IV fluids. Fluid balance has been -830 mL over the past 24 hours. No diuretics for now. 08/18/2022, a she is being seen for a follow-up. This morning, the patient is off sedation and she is quite lethargic and still unresponsive. She is quite synchronous a mechanical ventilator. Is an assist-control mode rate of 28 with a tidal volume of 400 and FiO2 of 40% with a PEEP of 5. Chest x-ray findings are stable and there is no evidence of pneumonia and there is adequate aeration of the lungs bilaterally with adequate positioning of the ET tube. The blood gas shows a pH of 7.35 with a pCO2 of 40 and pO2 of 89. At the same time, the patient is improving hemodynamically. She is on IV fluids at KVO. She is on norepinephrine running at 0.04 mcg/kg/m and the patient is also on a physiologic dose of vasopressin. Urine output is adequate. Fluid balance is in order of - 1.6 L and the patient is given a dose of Lasix 40 mg IV push 1 yesterday. The same may need to be repeated today. She remains on TPN for nutritional support. After receiving an aggressive regimen of laxatives which included lactulose and MiraLAX and the patient was on promotility agent with Reglan, the patient started having some bowel movement with activity. NG tube is in place. Output is minimal. No abdominal distention. Her cardiac rhythm is still in atrial fibrillation. She had some issues with tachycardia overnight and for that reason the amiodarone dose was increased up to 1 mg/m. She is afebrile. She remains on the same antibiotic coverage for now. She is on Levemir insulin which is running at a dose of 15 units a day along with that she is receiving size. Coverage. In terms of her blood work, the white cell count of 16.5 and the patient has a hemoglobin of 7 with a platelet count of 301. Sodium is at 148, potassium is at 3, chloride is 119 and a bicarb is 23 with a BUN of 58 and a creatinine of 1.26. Noted the creatinine continues to improve. LFTs show an AST of 56, ALP of 13, alkaline phosphatase of 275. Albumin is at 1.7. The patient remains on Eliquis and she is currently receiving a dose of 5 mg by mouth twice a day. On 08/19/2022, I'm seeing the patient for a follow-up in the intensive care unit. This morning, the patient is off sedation. I believe she is off sedation for at least 24-48 hours. Unresponsive, not following any commands, not grimacing to painful stimulation, she is providing the mechanical ventilator and she is currently on assist control mode at a rate of 28, tidal volume of 400, FiO2 40% and a PEEP of 5. Chest x-ray findings of essentially stable and unchanged. The patient continues to have some atelectatic changes and infiltrates in lung bases bilaterally. No major interval change since yesterday. Meanwhile, the blood gas from today shows a pH of 7.37 with a pCO2 of 40 and pO2 of 99. No significant orotracheal secretions. She is calm and comfortable while being on a mechanical ventilator. Since yesterday, and in the collections professional hours, the patient started having large bowel movements. Noted the patient was being given a combination of MiraLAX and lactulose and Reglan. She had massive and large bowel movements and currently she has a fecal m anagement system in Place. Since collections professional hours, she has produced another 200 mL of liquidy stool. The patient has no significant abdominal distention. Noted the patient has been in OG tube in place and output has been in the order of 300 mL over the past 8 hours. She remains on TPN for nutritional support and she remains nothing by mouth. Meanwhile, hemodynamically, the patient remains in atrial fibrillation. She remains on amiodarone ip at 1 mg/m and her heart is irregular and tachycardic. She remains on pressors. Passive requirements have improved however, this morning, she is requiring more pressors and norepinephrine was at 0.06 Geo respiratory kilogram per minutes of this being titrated up and the patient remains on a physiologic dose of vasopressin. She did spike a temperature of 101 and the patient remains on the same antibiotic coverage for now which includes a combination of Zerbaxa and Eraxis. WBC count is at 19.9 with hemoglobin of 6.9 and a platelet count of 280. Sodium is at 147. Potassium is at 3.4. Carotids 118 with a bicarb of 23. Creatinine continues to improve and the creatinine is down to 1.1 with a BUN of 56. Blood sugar is at 203. Overall fluid balance has been in the order of -1.6 L over the past 24 hours. The patient was given a dose of Lasix yesterday, none today. Family is at the bedside. TPN is running at the rate of 65 mL an hour. Objective - Vital Signs Vital signs: Vital Signs Temp 101 F H 08/19/22 08:09 Pulse 125 H 08/19/22 08:35 Resp 31 H 08/19/22 08:09 BP 101/46 08/19/22 08:09 Pulse Ox 95 08/19/22 08:09 FiO2 40 08/19/22 08:09 Intake & Output 08/18/22 08/19/22 08/19/22 18:59 06:59 18:59 Intake Total 2047.011 2144.970 433.731 Output Total 2675 1005 875 Balance -394.970 1688.970 -441.269 Weight 123.2 kg Intake: IV 169 117 26 0.9% @ KVO 130 90 20 Pressure Bag 39 27 6 Intake, IV Titration 1444.620 8695.970 407.731 Amount Amiodarone 450 mg In 288.059 Dextrose 5% in Water 250 ml @ 1 MG/MIN 33.333 mls/ hr IV .Q7H30M LEGIH ANN Rx#: [id number] Amiodarone 450 mg In 194.442 218.887 234.442 Dextrose 5% in Water 250 ml @ 1 MG/MIN 33.333 mls/ hr IV .Q7H30M LEIGH ANN Rx#: [id number] Mvi, Adult No.4 with Vit 1031 K 10 ml Trace (Conc-1Ml/ Dose) 1 ml Potassium Acetate 20 meq Calcium Gluconate 1 gm In Amino Acid 5%-D15w 1,000 ml @ 68 mls/hr IV .BY DURATION LEIGH ANN Rx#:[id number] Mvi, Adult No.4 with Vit 408 68 K 10 ml Trace (Conc-1Ml/ Dose) 1 ml Potassium Acetate 20 meq Calcium Gluconate 1 gm Magnesium Sulfate gm 0.5 gm Potassium Phosphate 10 mmol In Amino Acid 5%- D15w 1,000 ml @ 68 mls/hr IV .BY DURATION LEIGH ANN Rx#: [id number] Norepinephrine 32 mg In 39.960 20.083 5.289 Sodium Chloride 0.9% 218 ml @ 0.5 MCG/KG/MIN 25. 547 mls/hr IV .Q9H48M LEIGH ANN Rx#:[id number] Potassium Chloride 20 meq 1000 100 In Water For Injection 1 100ml.bag @ 50 mls/hr IVPB Q2H LEIGH ANN Rx#: [id number] Potassium Chloride 20 meq 100 In Water For Injection 1 100ml.bag @ 50 mls/hr IVPB Q2H LEIGH ANN Rx#: [id number] Vasopressin 60 unit In 155.55 0 Sodium Chloride 0.9% 150 ml @ 0.04 UNITS/MIN 6.12 mls/hr IV .Q24H LEIGH ANN Rx#: [id number] Other 200 250 Output: Gastric Drainage 650 350 Urine 2025 1005 325 Stool 200 Other: Voiding Method Indwelling Catheter Indwelling Catheter ABP, PAP, CO, CI - Last Documented Arterial Blood Pressure 107/48 - Exam GENERAL EXAM: Intubated, sedated, 87-year-old morbidly obese female, on 40% FiO2 and a PEEP of 5. HEAD: Normocephalic. EYES: Sluggish reaction of pupils, equal size. NOSE: Nasogastric tube secured in place. Clear with pink turbinates. THROAT: Oral endotracheal tube in place. NECK: No masses, no JVD. CHEST: No chest wall deformity. LUNGS: Equal air entry with crackles in the bilateral bases. CVS: S1 and S2 normal with no audible murmur, irregular rhythm. ABDOMEN: No hepatosplenomegaly, normal bowel sounds, no guarding or rigidity. SPINE: No scoliosis or deformity SKIN: No rashes CENTRAL NERVOUS SYSTEM: Sedated, tone is normal in all 4 extremities. EXTREMITIES: There is 1-2+ peripheral edema. Changes of chronic venous stasis. No clubbing, no cyanosis. Peripheral pulses are intact. - Labs CBC & Chem 7: 08/19/22 05:10 08/19/22 05:10 Labs: Abnormal Lab Results - Last 24 Hours (Table) 08/18/22 08/18/22 08/18/22 Range/Units 11:18 15:30 18:33 WBC (3.8-10.6) k/uL RBC (3.80-5.40) m/uL Hgb (11.4-16.0) gm/dL Hct (34.0-46.0) % MCHC (31.0-37.0) g/dL RDW (11.5-15.5) % ABG O2 Saturation (94-97) % Sodium (137-145) mmol/L Potassium 3.4 L (3.5-5.1) mmol/L Chloride (98-107) mmol/L BUN (7-17) mg/dL Creatinine (0.52-1.04) mg/dL Glucose (74-99) mg/dL POC Glucose (mg/dL) 337 H 271 H (70-110) mg/dL Calcium (8.4-10.2) mg/dL AST (14-36) U/L Alkaline Phosphatase (38-126) U/L Total Protein (6.3-8.2) g/dL Albumin (3.5-5.0) g/dL 08/19/22 08/19/22 08/19/22 Range/Units 00:24 05:10 05:10 WBC 19.9 H (3.8-10.6) k/uL RBC 2.64 L (3.80-5.40) m/uL Hgb 6.9 L* (11.4-16.0) gm/dL Hct 23.7 L (34.0-46.0) % MCHC 29.1 L (31.0-37.0) g/dL RDW 16.8 H (11.5-15.5) % ABG O2 Saturation (94-97) % Sodium 147 H (137-145) mmol/L Potassium 3.4 L (3.5-5.1) mmol/L Chloride 118 H (98-107) mmol/L BUN 56 H (7-17) mg/dL Creatinine 1.11 H (0.52-1.04) mg/dL Glucose 203 H (74-99) mg/dL POC Glucose (mg/dL) 160 H (70-110) mg/dL Calcium 7.3 L (8.4-10.2) mg/dL AST 45 H (14-36) U/L Alkaline Phosphatase 267 H (38-126) U/L Total Protein 4.4 L (6.3-8.2) g/dL Albumin 1.7 L (3.5-5.0) g/dL 08/19/22 08/19/22 Range/Units 05:26 05:28 WBC (3.8-10.6) k/uL RBC (3.80-5.40) m/uL Hgb (11.4-16.0) gm/dL Hct (34.0-46.0) % MCHC (31.0-37.0) g/dL RDW (11.5-15.5) % ABG O2 Saturation 97.5 H (94-97) % Sodium (137-145) mmol/L Potassium (3.5-5.1) mmol/L Chloride (98-107) mmol/L BUN (7-17) mg/dL Creatinine (0.52-1.04) mg/dL Glucose (74-99) mg/dL POC Glucose (mg/dL) 243 H (70-110) mg/dL Calcium (8.4-10.2) mg/dL AST (14-36) U/L Alkaline Phosphatase (38-126) U/L Total Protein (6.3-8.2) g/dL Albumin (3.5-5.0) g/dL Microbiology - Last 24 Hours (Table) 08/14/22 15:00 Blood Culture - Preliminary Blood No Growth after 96 hours Assessment and Plan Plan: Acute on chronic hypoxemic respiratory failure secondary to suspected diastolic congestive heart failure. The patient did deteriorate on 08/10/2022 requiring intubation mechanical ventilatory support. She has a component of CHF and multiple infiltrates bilaterally, as superinfection with a pneumonia cannot be completely ruled out. X-ray findings are the same. Blood gas is adequate for this morning. No major change in her blood gas or chest x-ray on today's evaluation. Overall respiratory status is stable for now. The patient is oxygenating well. Septic shock secondary to above, now requiring pressor support in the form of norepinephrine and vasopressin, still hypotensive, still requiring pressors,, though was recommended antibiotics with a combination of Eraxis and Zerbaxa, this morning, the patient is febrile and the patient is requiring higher doses of pressors. Nevertheless, she did have a large bowel movement which could've affected her overall fluid balance as the patient is having liquidy bowel movement for now. Norepinephrine is running at 0.06 mcg/kg/m and the patient is still on a physiologic dose of vasopressin. urinary tract infection, sepsis. Urine culture positive for Enterococcus faecalis and Pseudomonas aeruginosa Systemic candidiasis with positive culture with Ange Anaerobic gram-negative bacteria in the blood Atrial fibrillation with a rapid ventricular response initiated on amiodarone drip and the patient remains on amiodarone at 1 mg/m Chronic constipation with significant stool impaction , currently has a fecal management system in place and we immobilized the stool Previous history of urinary tract infections History of atrial fibrillation on Eliquis in the outpatient Acute on chronic kidney disease, recovering and renal function continues to improve Recent COVID-19 infection History of valvular heart disease with aortic valve stenosis and preserved LV function, based on an echocardiogram from March 2022 Chronic changes in the right lower lobe with small right pleural effusion Acute on chronic anemia my current hemoglobin 7.0 and the patient remains on anticoagulation with Eliquis History of chronic obstructive pulmonary disease History of prior tobacco dependence History of diastolic congestive heart failure History of coronary disease with multiple stent placements History of CVA/TIA History of diabetes mellitus, adequate blood sugar control for now and the patient is on Levemir insulin 15 units plus a sliding scale insulin coverage Morbid obesity Hypertension Hyperlipidemia Hypothyroidism Poor overall functional performance based on the above-mentioned multiple comorbidities with recent stay and ECF Plan: Keep the patient off sedation, very important to continue monitoring the mental status off sedation Ventilator support, no vent changes will be done for today Continue same antibiotic coverage IV fluids to KVO No need for diuretics today and continued depressive titration Monitor and assess mental status Stop the free water through the OG, stop the Reglan, and lactulose to continue the MiraLAX only. Meanwhile, should be able to give the water with IV Ancef h ypernatremia becomes an ongoing issue. Her sodium level currently is at 147. Keep the patient nothing by mouth for feeding and continue TPN for another 24 hours. start feeding this patient as of tomorrow and we'll keep the fecal management system in Place Obtain a flat film of the abdomen to monitor the stool impaction Monitor blood pressure and gradually wean off the pressors if possible, nor epinephrine first Continue amiodarone for rate control, the dose has been increased to 1 mg/m Eliquis 5 mg twice a day. Repeat blood cultures are negative Continue Eraxis/Zerbaxa Continue bronchodilators monitor fever pattern and reculture the patient should there be another febrile episode Overall prognosis remains poor We will continue to follow and make further recommendations based on her cli nical status Is extremely critical. Case was discussed with the daughter at the bedside. We'll continue to follow. Evaluation was done >30 min Time with Patient: Greater than 30
--- NOTE | 2022-08-19 11:26 | P.PN ---
Subjective Progress Note Date: 08/19/22 This is Dallas Krishnan NP, I'm dictating on behalf of Dr. Dorado's H&P and A&P. Patient was interviewed and examined. The patient is an 87-year-old female with multiple comorbid conditions who is currently admitted to the hospital with bowel obstruction and septicemia. Cardiology was consulted for a syncopal episode just prior to admission. Cardiology has signed off but then was again for A. fib with RVR. Dr Dorado recommended amiodarone drip for rate control. The patient has a poor prognosis as she is currently ventilated on vasopressors and is deemed a high risk surgical candidate. She currently remains intubated and sedated. The amiodarone drip continues, the patient continues to exhibit elevated heart rates. GENERAL: Ill-appearing, well-nourished and in no acute distress. On ventilator, currently sedated. NECK: Supple without JVD or thyromegaly. LUNGS: Breath sounds coarse to auscultation bilaterally. Respiration equal and unlabored. Rhonchi throughout. HEART: Irregular rate and rhythm without murmurs, rubs or gallops. S1 and S2 heard. EXTREMITIES: Normal range of motion, moderate edema. No clubbing or cyanosis. VITALS: Temp 100.7, pulse 131, respirations 28, blood pressure 95/40, O2 saturation 95% on mechanical ventilation TELEMETRY: A. fib with RVR, rate 130s LABS: White count 19.9, hemoglobin 6.9, S2 80, sodium 147, potassium 3.4, B1 56, creatinine 1.11, calcium 7.3, magnesium 1. IMPRESSION: 1. A. fib with RVR, currently on amiodarone for rate control 2. Septicemia 3. Acute kidney injury, improving 4. Elevated liver enzymes, improving 5. Acute respiratory failure on vasopressors 6. GI bleed with acute bowel obstruction PLAN: Continue amiodarone at 1 mg continuous Patient is a high risk surgical candidate Continue supportive treatment Further recommendations based on patient's clinical course Objective - Vital Signs Vital signs: Vital Signs Temp 100.7 F H 08/19/22 10:00 Pulse 131 H 08/19/22 10:00 Resp 28 H 08/19/22 10:00 BP 101/46 08/19/22 08:09 Pulse Ox 95 08/19/22 10:00 FiO2 40 08/19/22 10:00 Intake & Output 08/18/22 08/19/22 08/19/22 18:59 06:59 18:59 Intake Total 2047.011 2144.970 433.731 Output Total 2675 1005 875 Balance -598.154 8485.970 -441.269 Weight 123.2 kg Intake: IV 169 117 26 0.9% @ KVO 130 90 20 Pressure Bag 39 27 6 Intake, IV Titration 6926.686 9254.970 407.731 Amount Amiodarone 450 mg In 288.059 Dextrose 5% in Water 250 ml @ 1 MG/MIN 33.333 mls/ hr IV .Q7H30M [facility] Rx#: [id number] Amiodarone 450 mg In 194.442 218.887 234.442 Dextrose 5% in Water 250 ml @ 1 MG/MIN 33.333 mls/ hr IV .Q7H30M [facility] Rx#: [id number] Mvi, Adult No.4 with Vit 1031 K 10 ml Trace (Conc-1Ml/ Dose) 1 ml Potassium Acetate 20 meq Calcium Gluconate 1 gm In Amino Acid 5%-D15w 1,000 ml @ 68 mls/hr IV .BY DURATION [facility] Rx#:[id number] Mvi, Adult No.4 with Vit 408 68 K 10 ml Trace (Conc-1Ml/ Dose) 1 ml Potassium Acetate 20 meq Calcium Gluconate 1 gm Magnesium Sulfate gm 0.5 gm Potassium Phosphate 10 mmol In Amino Acid 5%- D15w 1,000 ml @ 68 mls/hr IV .BY DURATION [facility] Rx#: [id number] Norepinephrine 32 mg In 39.960 20.083 5.289 Sodium Chloride 0.9% 218 ml @ 0.5 MCG/KG/MIN 25. 547 mls/hr IV .Q9H48M [facility] Rx#:[id number] Potassium Chloride 20 meq 1000 100 In Water For Injection 1 100ml.bag @ 50 mls/hr IVPB Q2H [facility] Rx#: [id number] Potassium Chloride 20 meq 100 In Water For Injection 1 100ml.bag @ 50 mls/hr IVPB Q2H [facility] Rx#: [id number] Vasopressin 60 unit In 155.55 0 Sodium Chloride 0.9% 150 ml @ 0.04 UNITS/MIN 6.12 mls/hr IV .Q24H [facility] Rx#: [id number] Other 200 250 Output: Gastric Drainage 650 350 Urine 2024 1005 325 Stool 200 Other: Voiding Method Indwelling Catheter Indwelling Catheter ABP, PAP, CO, CI - Last Documented Arterial Blood Pressure 95/40 - Labs CBC & Chem 7: 08/19/22 05:10 08/19/22 05:10 Labs: Abnormal Lab Results - Last 24 Hours (Table) 08/18/22 08/18/22 08/19/22 Range/Units 15:30 18:33 00:24 WBC (3.8-10.6) k/uL RBC (3.80-5.40) m/uL Hgb (11.4-16.0) gm/dL Hct (34.0-46.0) % MCHC (31.0-37.0) g/dL RDW (11.5-15.5) % ABG O2 Saturation (94-97) % Sodium (137-145) mmol/L Potassium 3.4 L (3.5-5.1) mmol/L Chloride (98-107) mmol/L BUN (7-17) mg/dL Creatinine (0.52-1.04) mg/dL Glucose (74-99) mg/dL POC Glucose (mg/dL) 271 H 160 H (70-110) mg/dL Calcium (8.4-10.2) mg/dL AST (14-36) U/L Alkaline Phosphatase (38-126) U/L Total Protein (6.3-8.2) g/dL Albumin (3.5-5.0) g/dL 08/19/22 08/19/22 08/19/22 Range/Units 05:10 05:10 05:26 WBC 19.9 H (3.8-10.6) k/uL RBC 2.64 L (3.80-5.40) m/uL Hgb 6.9 L* (11.4-16.0) gm/dL Hct 23.7 L (34.0-46.0) % MCHC 29.1 L (31.0-37.0) g/dL RDW 16.8 H (11.5-15.5) % ABG O2 Saturation (94-97) % Sodium 147 H (137-145) mmol/L Potassium 3.4 L (3.5-5.1) mmol/L Chloride 118 H (98-107) mmol/L BUN 56 H (7-17) mg/dL Creatinine 1.11 H (0.52-1.04) mg/dL Glucose 203 H (74-99) mg/dL POC Glucose (mg/dL) 243 H (70-110) mg/dL Calcium 7.3 L (8.4-10.2) mg/dL AST 45 H (14-36) U/L Alkaline Phosphatase 267 H (38-126) U/L Total Protein 4.4 L (6.3-8.2) g/dL Albumin 1.7 L (3.5-5.0) g/dL 08/19/22 Range/Units 05:28 WBC (3.8-10.6) k/uL RBC (3.80-5.40) m/uL Hgb (11.4-16.0) gm/dL Hct (34.0-46.0) % MCHC (31.0-37.0) g/dL RDW (11.5-15.5) % ABG O2 Saturation 97.5 H (94-97) % Sodium (137-145) mmol/L Potassium (3.5-5.1) mmol/L Chloride (98-107) mmol/L BUN (7-17) mg/dL Creatinine (0.52-1.04) mg/dL Glucose (74-99) mg/dL POC Glucose (mg/dL) (70-110) mg/dL Calcium (8.4-10.2) mg/dL AST (14-36) U/L Alkaline Phosphatase (38-126) U/L Total Protein (6.3-8.2) g/dL Albumin (3.5-5.0) g/dL Microbiology - Last 24 Hours (Table) 08/14/22 15:00 Blood Culture - Preliminary Blood No Growth after 96 hours
[2022-08-19] MEDS: ANIDULAFUNGIN 100 MG in SODIUM CHLORIDE 0.9% 100 ML IVPB SCH (11:33)
[2022-08-19 12:06] LABS: Glucose,Whole Blood 211 mg/dL (70-110)
[2022-08-19] MEDS ORDERED: SODIUM CHLORIDE 0.9% 1,000 ML IV ONE ×2 (12:21→13:58)
--- NOTE | 2022-08-19 13:31 | P.PN ---
Subjective This is a 87-year-old morbidly, obese, female, well known to me. She has multiple medical problems including a chronic renal failure, chronic systolic congestive heart failure. I last seen her on August 05, 2022 at [facility] [place]. She was doing fairly well at that time. She was there for rehabilitation. This was her third [facility] visit in the past Several months.Her only complaint with some constipation. She not stool since August 03. She has been hospitalized in the past year nine times including this current visit.She was discharged from [facility] on August 06, 2022. On August 08, 2022 she presented the emergency room via EMS. Her indicates that she went to the bathroom, and, he had found her slumped over in her wheelchair, blue in the face and not breathing well. He had tried to feed her and given her some insulin. SheHer only complaint with some constipation. After patients admission, just after midnight and 18 was called on her and she is going to be attending hypotensive. Choose placement of any mask and BiPAP. Eventually she required intubation. And her about August 11. She's currently in abated and sedated.How to raise tachycardic blood pressure is stable with pressers.She is on aAnidulafungin For positive sputum and blood cultures of yeast. She remains on sodium chloride and potassium chloride IV and is now on tube feeds at 10 ml/hr. Labs for today show a leukocytosis at 16.2 with a left shift 13.9 neutrophils hemoglobin is 7.7. ABGs from this morning show page 7.32 PCO2 of 39 PO and HCO3 a 20.Chemistry is show the normal electrolytes decrease carbon dioxide and 19 GFR is 26. Calcium 6.4. She is receiving a amino acids and D5 through the IV. She has Dulcolax per rectum ordered. She has sheathing calcium gluconate. She remains Zerbaxa for antibiotic coverage.She is receiving Lovenox for anticoagulation and DVT prophylaxis, Levemir insulin along with scale, Levophed for blood pressure control, potassium chloride for hypokalemia. She's being followed by critical care, Nephrology,surgery, Infectious disease and cardiology August 16 2022: She remains intubated in the intensive care unit. Sedation has been discontinued. She remains on pressors of Levophed. The dose of this is been decreased. She did not tolerate tube feeds. Heart rate remains elevated. She is in atrial fibrillation. She is on potassium replacement protocol. Calcium gluconate, amiodarone drip, need to left fungated antifungal medication, ceftolazone/tazobactam for antibiotic coverage for suspected UTI and sepsis, Reglan for her constipation, insulin for her diabetes, Elequis for anticoagulation. Laboratory studies show a leukocytosis at 20.2 with hemoglobin of 70 absolute neutrophils 17.5. ABGs show pH 7.36 PCO2 39 PO2 107. Chemistries slightly altered, GFR is improved, CRP and pro calcitonin elevated. Repeat blood cultures have been negative. She remains on MiraLAX, lactulose and Reglan per critical care for the constipation issues. Calcitonin is improved. Glucose remains well controlled. Critical care planning gradually reducing her pressors as needed. Etiologies following for her A. fib with RVR. He continues to have volvulus. 08/17/2022: Patient remains intubated in the intensive care unit. He remains on norepinephrine and vasopressin for hypotension. Sedation used propofol but will be discontinued soon for a trial ventilator on standby. I discussed her case personally with the tile designer. She remains on Levemir insulin 10 units and NovoLog scale every 6 hours. Staff reports increased sugars recently. She continues on naproxen than for anticoagulation, amiodarone for atrial fibrillation with RVR, budesonide for her COPD, Eraxis for candidal infection and Zybrexa for anti-biotic coverage for UTI. Her main some potassium protocol. She is on lactulose and Reglan to help with her obstipation. She is receiving TPN for nutrition. I remains tachycardic, rest her rate somewhat elevated. Blood pressure remained stable. WB Nayla is slightly improved from yesterday, hemoglobin is slightly down from yesterday. Blood gases chemistries reviewed. She remains hypokalemic. Kidney function continues to improve very slowly. Glucose was 260 this morning. Calcium and protein albumin remained low. Her 13 blood cultures remain negative. Her condition is critical care cardiology reviewed. Chest x-ray shows no nipple can't change. 08/18 2022: Patient remains intubated in the intensive care unit. Sedation has been off, but there's been no significant wakefulness noted. Vital signs show she remains tachycardic in the 130s. Respiratory rate is 30 and mechanically ventilated, blood pressure remains low normal with pressers of vasopressin and levo fed. FiO2 is 40 Labs show to be discussed 16 5 hemoglobin 7 hematocrit 23.9 platelets are 301. Arterial line gases show pH 7.35 PCO2 40 and PO2 of 89. Chemistry shows sodium 148 potassium 3.0 chloride 119 CO2 23 BUN 58 crit and 1.26. Critical care, nephrology notes were reviewed. 08/19/2022: Patient remains in abated intensive care unit. She's been off sedation 48 hours but is not responding to family and only has reflexes noted. Remains mechanically ventilated. Staff reports large stools now and the need for fecal management system. He is now febrile at 101.4 axillary. Heart rate remains tachycardic in atrial fibrillation. Pulse oximetry is 92% on 40% FiO2. Labs today showed a B scan in 19 9, hemoglobin is 6.9, platelets 280. Blood gases are reviewed. Minimally hyponatremic and hypokalemic. BUN is 56, creatinine 1.1 on, GFR now 46. The kidney function continues to improve. They have packed red blood cells been ordered and pending. Consult recommendations were reviewed. She remains on the plan per critical care. Objective - Vital Signs Vital signs: Vital Signs Temp 101.4 F H 08/19/22 12:00 Pulse 144 H 08/19/22 12:00 Resp 25 H 08/19/22 12:00 BP 99/43 08/19/22 09:00 Pulse Ox 92 L 08/19/22 12:00 FiO2 40 08/19/22 12:00 Intake & Output 08/18/22 08/19/22 08/19/22 18:59 06:59 18:59 Intake Total 2047.011 2144.970 1350.106 Output Total 2675 1005 1050 Balance -147.027 0798.970 300.106 Weight 123.2 kg Intake: IV 169 117 48 0.9% @ KVO 130 90 30 Pressure Bag 39 27 18 Intake, IV Titration 8932.204 9540.970 1152.106 Amount Amiodarone 450 mg In 288.059 Dextrose 5% in Water 250 ml @ 1 MG/MIN 33.333 mls/ hr IV .Q7H30M [facility] Rx#: [id number] Amiodarone 450 mg In 194.442 218.887 234.442 Dextrose 5% in Water 250 ml @ 1 MG/MIN 33.333 mls/ hr IV .Q7H30M [facility] Rx#: [id number] Anidulafungin 100 mg In 100 Sodium Chloride 0.9% 100 ml @ 84 mls/hr IVPB DAILY [facility] Rx#:[id number] Ceftolozane/Tazobactam 0. 100 75 gm In Sodium Chloride 0.9% 100 ml @ 100 mls/hr IV Q8HR [facility] Rx#:[id number] Mvi, Adult No.4 with Vit 1031 K 10 ml Trace (Conc-1Ml/ Dose) 1 ml Potassium Acetate 20 meq Calcium Gluconate 1 gm In Amino Acid 5%-D15w 1,000 ml @ 68 mls/hr IV .BY DURATION [facility] Rx#:[id number] Mvi, Adult No.4 with Vit 408 68 K 10 ml Trace (Conc-1Ml/ Dose) 1 ml Potassium Acetate 20 meq Calcium Gluconate 1 gm Magnesium Sulfate gm 0.5 gm Potassium Phosphate 10 mmol In Amino Acid 5%- D15w 1,000 ml @ 68 mls/hr IV .BY DURATION [facility] Rx#: [id number] Norepinephrine 32 mg In 39.960 20.083 19.664 Sodium Chloride 0.9% 218 ml @ 0.5 MCG/KG/MIN 25. 547 mls/hr IV .Q9H48M [facility] Rx#:[id number] Potassium Acetate 20 meq 330 Calcium Gluconate 1 gm Magnesium Sulfate gm 0.5 gm Potassium Phosphate 10 mmol In Amino Acid 5%- D15w 1,000 ml @ 68 mls/hr IV .BY DURATION [facility] Rx#: [id number] Potassium Chloride 20 meq 1000 100 In Water For Injection 1 100ml.bag @ 50 mls/hr IVPB Q2H [facility] Rx#: [id number] Potassium Chloride 20 meq 300 In Water For Injection 1 100ml.bag @ 50 mls/hr IVPB Q2H [facility] Rx#: [id number] Vasopressin 60 unit In 155.55 0 Sodium Chloride 0.9% 150 ml @ 0.04 UNITS/MIN 6.12 mls/hr IV .Q24H [facility] Rx#: [id number] Oral 150 Other 200 250 Output: Gastric Drainage 650 350 Urine 2025 1005 500 Stool 200 Other: Voiding Method Indwelling Catheter Indwelling Catheter ABP, PAP, CO, CI - Last Documented Arterial Blood Pressure 92/42 - Exam General: Patient is intubated in ICU, sedation has been discontinued, patient is not arousable. Neck: [No adenopathy.] Cardiac: [Heart regularly irregular, tachycardic. S1/S2 were equal, there is a 1/6 systolic murmur at the right, and left sternal border Lungs: Diminished breath sounds bilaterally scattered rhonchi noted mechanically ventilated Abdomen: Somewhat distended due to her fecal retention. No organomegaly. Bowel sounds presnt and hypoactive in all 4 quadrants. This patient is morbidly obese, mild distention Extremes: Bilateral lower extremity and upper extremity edema is improved. Offloading waffle boots are in place. Skin: Multiple small wounds have bordered foam dressings in place. Neurologic: Patient is on a ventilatory support about sedation but only has reflexes as indicated by the nursing staff. Lymphatic: [No adenopathy.] - Labs CBC & Chem 7: 08/19/22 05:10 08/19/22 05:10 Labs: Abnormal Lab Results - Last 24 Hours (Table) 08/18/22 08/18/22 08/19/22 Range/Units 15:30 18:33 00:24 WBC (3.8-10.6) k/uL RBC (3.80-5.40) m/uL Hgb (11.4-16.0) gm/dL Hct (34.0-46.0) % MCHC (31.0-37.0) g/dL RDW (11.5-15.5) % ABG O2 Saturation (94-97) % Sodium (137-145) mmol/L Potassium 3.4 L (3.5-5.1) mmol/L Chloride (98-107) mmol/L BUN (7-17) mg/dL Creatinine (0.52-1.04) mg/dL Glucose (74-99) mg/dL POC Glucose (mg/dL) 271 H 160 H (70-110) mg/dL Calcium (8.4-10.2) mg/dL AST (14-36) U/L Alkaline Phosphatase (38-126) U/L Total Protein (6.3-8.2) g/dL Albumin (3.5-5.0) g/dL 08/19/22 08/19/22 08/19/22 Range/Units 05:10 05:10 05:26 WBC 19.9 H (3.8-10.6) k/uL RBC 2.64 L (3.80-5.40) m/uL Hgb 6.9 L* (11.4-16.0) gm/dL Hct 23.7 L (34.0-46.0) % MCHC 29.1 L (31.0-37.0) g/dL RDW 16.8 H (11.5-15.5) % ABG O2 Saturation (94-97) % Sodium 147 H (137-145) mmol/L Potassium 3.4 L (3.5-5.1) mmol/L Chloride 118 H (98-107) mmol/L BUN 56 H (7-17) mg/dL Creatinine 1.11 H (0.52-1.04) mg/dL Glucose 203 H (74-99) mg/dL POC Glucose (mg/dL) 243 H (70-110) mg/dL Calcium 7.3 L (8.4-10.2) mg/dL AST 45 H (14-36) U/L Alkaline Phosphatase 267 H (38-126) U/L Total Protein 4.4 L (6.3-8.2) g/dL Albumin 1.7 L (3.5-5.0) g/dL 08/19/22 08/19/22 Range/Units 05:28 12:05 WBC (3.8-10.6) k/uL RBC (3.80-5.40) m/uL Hgb (11.4-16.0) gm/dL Hct (34.0-46.0) % MCHC (31.0-37.0) g/dL RDW (11.5-15.5) % ABG O2 Saturation 97.5 H (94-97) % Sodium (137-145) mmol/L Potassium (3.5-5.1) mmol/L Chloride (98-107) mmol/L BUN (7-17) mg/dL Creatinine (0.52-1.04) mg/dL Glucose (74-99) mg/dL POC Glucose (mg/dL) 211 H (70-110) mg/dL Calcium (8.4-10.2) mg/dL AST (14-36) U/L Alkaline Phosphatase (38-126) U/L Total Protein (6.3-8.2) g/dL Albumin (3.5-5.0) g/dL Microbiology - Last 24 Hours (Table) 08/14/22 15:00 Blood Culture - Preliminary Blood No Growth after 96 hours Assessment and Plan (1) Sepsis Current Visit: Yes Status: Acute Code(s): A41.9 - SEPSIS, UNSPECIFIED ORGANISM SNOMED Code(s): 38783225 (2) Acute on chronic diastolic (congestive) heart failure Current Visit: No Status: Acute Code(s): I50.33 - ACUTE ON CHRONIC DIASTOLIC (CONGESTIVE) HEART FAILURE SNOMED Code(s): 520295902 (3) Hypokalemia Current Visit: Yes Status: Acute Code(s): E87.6 - HYPOKALEMIA SNOMED Code(s): 66270206 (4) Hypocalcemia Current Visit: Yes Status: Acute Code(s): E83.51 - HYPOCALCEMIA SNOMED Code(s): 9037803 (5) Acute exacerbation of chronic obstructive pulmonary disease Current Visit: Yes Status: Acute Code(s): J44.1 - CHRONIC OBSTRUCTIVE PULMONARY DISEASE W (ACUTE) EXACERBATION SNOMED Code(s): 131989443 (6) Pneumonia Current Visit: Yes Status: Acute Code(s): J18.9 - PNEUMONIA, UNSPECIFIED ORGANISM SNOMED Code(s): 919069992 (7) Acute on chronic renal failure Current Visit: No Status: Acute Code(s): N17.9 - ACUTE KIDNEY FAILURE, UNSPECIFIED; N18.9 - CHRONIC KIDNEY DISEASE, UNSPECIFIED SNOMED Code(s): 636213466 (8) Altered mental status Current Visit: No Status: Acute Code(s): R41.82 - ALTERED MENTAL STATUS, U NSPECIFIED SNOMED Code(s): 818792632 (9) CAD (coronary atherosclerotic disease) Current Visit: No Status: Acute Code(s): I25.10 - ATHSCL HEART DISEASE OF [place] CORONARY ARTERY W/O ANG PCTRS SNOMED Code(s): 998555595 (10) Hypertension Current Visit: No Status: Acute Code(s): I10 - ESSENTIAL (PRIMARY) HYPERTENSION SNOMED Code(s): 01199519 (11) Hypoxia Current Visit: No Status: Acute Code(s): R09.02 - HYPOXEMIA SNOMED Code(s): 779589167 (12) Leukocytosis Current Visit: No Status: Acute Code(s): D72.829 - ELEVATED WHITE BLOOD CELL COUNT, UNSPECIFIED SNOMED Code(s): 405107894 (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 Current Visit: No Status: Acute Code(s): Z79.891 - HALF-WAY (CURRENT) USE OF OPIATE ANALGESIC SNOMED Code(s): 695014854 (14) Type 2 diabetes mellitus without complications Current Visit: No Status: Acute Code(s): E11.9 - TYPE 2 DIABETES MELLITUS WITHOUT COMPLICATIONS SNOMED Code(s): 484537934 (15) UTI (urinary tract infection) Current Visit: No Status: Acute Code(s): N39.0 - URINARY TRACT INFECTION, SITE NOT SPECIFIED SNOMED Code(s): 70687454 (16) Urinary retention Current Visit: No Status: Acute Code(s): R33.9 - RETENTION OF URINE, UNSPECIFIED SNOMED Code(s): 432405836 Plan: I will standby for further recommendations from critical care, infectious disease, Nephrology, general surgery, cardiology, repeat labs in a.m., I spent 10 minutes discussing her care with her daughter , I'll reevaluate her in the next 24 hours. I will put in a consultation for neurology at this point. Critical care indicates she is not stable to go for a CAT scan of the brain yet.
[2022-08-19] MEDS: ERGOCALCIFEROL 1,250 MCG (50,000 IU) CAPSULE PO SCH (13:53)
--- NOTE | 2022-08-19 14:20 | XR ---
EXAMINATION TYPE: XR KUB portable DATE OF EXAM: 08/19/2022 COMPARISON: NONE HISTORY: Pain TECHNIQUE: Single supine KUB image of the abdomen is obtained FINDINGS: NG tube is noted at the gastroesophageal junction and should be advanced. Poor visualization of the b owel and limited interpretation. No convincing evidence for pneumoperitoneum. IMPRESSION: 1. Study. NG tube should be advanced as it resides at the GE junction
[2022-08-19] MEDS: VASOPRESSIN 60 UNIT in SODIUM CHLORIDE 0.9% 150 ML IV SCH (14:59)
[2022-08-19 17:59] LABS: Glucose,Whole Blood 193 mg/dL (70-110)
[2022-08-19 18:54] LABS: Magnesium 1.8 mg/dL (1.6-2.3); Potassium 4.5 mmol/L (3.5-5.1)
[2022-08-19] MEDS ORDERED: VANCOMYCIN IV PER PHARMACY 1 EACH MISC MISCELLANE PRN ×2 (19:12→20:50)
[2022-08-19] MEDS ORDERED: VANCOMYCIN 2,000 MG in SODIUM CHLORIDE 0.9% 500 ML 500 ML IVPB STA (19:21)
--- NOTE | 2022-08-19 20:55 | P.PN ---
Subjective Progress Note Date: 08/19/22 Principal diagnosis: Sepsis/septic shock Patient is a 87-year-old female with multiple comorbidities presented to the hospital with a syncopal episode weakness subsequently hypotension, sepsis requiring transfer to the ICU and intubation on the vent. On today's evaluation that is 08/19/2022, the patient started spiking fever this morning with a temperature of 101F, the patient is requiring more pressor support to maintain her blood pressure per the nursing staff, the patient FiO2 is currently stable at 40 %, no significant purulent secretions through the ET , patient did have NG to suction and the patient is currently on TPN , patient did have multiple bowel movements however also noticed to have some abdominal distention Objective - Vital Signs Vital signs: Vital Signs Temp 101.4 F H 08/19/22 12:00 Pulse 144 H 08/19/22 12:00 Resp 25 H 08/19/22 12:00 BP 99/43 08/19/22 09:00 Pulse Ox 92 L 08/19/22 12:00 FiO2 40 08/19/22 12:00 Intake & Output 08/18/22 08/19/22 08/19/22 18:59 06:59 18:59 Intake Total 2047.011 2144.970 1350.106 Output Total 2675 1005 1050 Balance -766.000 7198.970 300.106 Weight 123.2 kg Intake: IV 169 117 48 0.9% @ KVO 130 90 30 Pressure Bag 39 27 18 Intake, IV Titration 0062.838 1143.970 1152.106 Amount Amiodarone 450 mg In 288.059 Dextrose 5% in Water 250 ml @ 1 MG/MIN 33.333 mls/ hr IV .Q7H30M [facility] Rx#: [id number] Amiodarone 450 mg In 194.442 218.887 234.442 Dextrose 5% in Water 250 ml @ 1 MG/MIN 33.333 mls/ hr IV .Q7H30M [facility] Rx#: [id number] Anidulafungin 100 mg In 100 Sodium Chloride 0.9% 100 ml @ 84 mls/hr IVPB DAILY [facility] Rx#:[id number] Ceftolozane/Tazobactam 0. 100 75 gm In Sodium Chloride 0.9% 100 ml @ 100 mls/hr IV Q8HR [facility] Rx#:[id number] Mvi, Adult No.4 with Vit 1031 K 10 ml Trace (Conc-1Ml/ Dose) 1 ml Potassium Acetate 20 meq Calcium Gluconate 1 gm In Amino Acid 5%-D15w 1,000 ml @ 68 mls/hr IV .BY DURATION [facility] Rx#:[id number] Mvi, Adult No.4 with Vit 408 68 K 10 ml Trace (Conc-1Ml/ Dose) 1 ml Potassium Acetate 20 meq Calcium Gluconate 1 gm Magnesium Sulfate gm 0.5 gm Potassium Phosphate 10 mmol In Amino Acid 5%- D15w 1,000 ml @ 68 mls/hr IV .BY DURATION [facility] Rx#: [id number] Norepinephrine 32 mg In 39.960 20.083 19.664 Sodium Chloride 0.9% 218 ml @ 0.5 MCG/KG/MIN 25. 547 mls/hr IV .Q9H48M [facility] Rx#:[id number] Potassium Acetate 20 meq 330 Calcium Gluconate 1 gm Magnesium Sulfate gm 0.5 gm Potassium Phosphate 10 mmol In Amino Acid 5%- D15w 1,000 ml @ 68 mls/hr IV .BY DURATION [facility] Rx#: [id number] Potassium Chloride 20 meq 1000 100 In Water For Injection 1 100ml.bag @ 50 mls/hr IVPB Q2H [facility] Rx#: [id number] Potassium Chloride 20 meq 300 In Water For Injection 1 100ml.bag @ 50 mls/hr IVPB Q2H [facility] Rx#: [id number] Vasopressin 60 unit In 155.55 0 Sodium Chloride 0.9% 150 ml @ 0.04 UNITS/MIN 6.12 mls/hr IV .Q24H [facility] Rx#: [id number] Oral 150 Other 200 250 Output: Gastric Drainage 650 350 Urine 2025 1005 500 Stool 200 Other: Voiding Method Indwelling Catheter Indwelling Catheter ABP, PAP, CO, CI - Last Documented Arterial Blood Pressure 92/42 - Exam GENERAL DESCRIPTION: An elderly female intubated on the vent RESPIRATORY SYSTEM: Unlabored breathing , decreased breath sounds at bases HEART: S1 S2 regular rate and rhythm , ABDOMEN: Soft , no tenderness EXTREMITIES: Lower extremity swelling no redness - Labs CBC & Chem 7: 08/19/22 05:10 08/19/22 18:00 Labs: Abnormal Lab Results - Last 24 Hours (Table) 08/18/22 08/18/2208/19/23 Range/Units 15:30 18:33 00:24 WBC (3.8-10.6) k/uL RBC (3.80-5.40) m/uL Hgb (11.4-16.0) gm/dL Hct (34.0-46.0) % MCHC (31.0-37.0) g/dL RDW (11.5-15.5) % ABG O2 Saturation (94-97) % Sodium (137-145) mmol/L Potassium 3.4 L (3.5-5.1) mmol/L Chloride (98-107) mmol/L BUN (7-17) mg/dL Creatinine (0.52-1.04) mg/dL Glucose (74-99) mg/dL POC Glucose (mg/dL) 271 H 160 H (70-110) mg/dL Calcium (8.4-10.2) mg/dL AST (14-36) U/L Alkaline Phosphatase (38-126) U/L Total Protein (6.3-8.2) g/dL Albumin (3.5-5.0) g/dL 08/19/22 08/19/22 08/19/22 Range/Units 05:10 05:10 05:26 WBC 19.9 H (3.8-10.6) k/uL RBC 2.64 L (3.80-5.40) m/uL Hgb 6.9 L* (11.4-16.0) gm/dL Hct 23.7 L (34.0-46.0) % MCHC 29.1 L (31.0-37.0) g/dL RDW 16.8 H (11.5-15.5) % ABG O2 Saturation (94-97) % Sodium 147 H (137-145) mmol/L Potassium 3.4 L (3.5-5.1) mmol/L Chloride 118 H (98-107) mmol/L BUN 56 H (7-17) mg/dL Creatinine 1.11 H (0.52-1.04) mg/dL Glucose 203 H (74-99) mg/dL POC Glucose (mg/dL) 243 H (70-110) mg/dL Calcium 7.3 L (8.4-10.2) mg/dL AST 45 H (14-36) U/L Alkaline Phosphatase 267 H (38-126) U/L Total Protein 4.4 L (6.3-8.2) g/dL Albumin 1.7 L (3.5-5.0) g/dL 08/19/22 08/19/22 Range/Units 05:28 12:05 WBC (3.8-10.6) k/uL RBC (3.80-5.40) m/uL Hgb (11.4-16.0) gm/dL Hct (34.0-46.0) % MCHC (31.0-37.0) g/dL RDW (11.5-15.5) % ABG O2 Saturation 97.5 H (94-97) % Sodium (137-145) mmol/L Potassium (3.5-5.1) mmol/L Chloride (98-107) mmol/L BUN (7-17) mg/dL Creatinine (0.52-1.04) mg/dL Glucose (74-99) mg/dL POC Glucose (mg/dL) 211 H (70-110) mg/dL Calcium (8.4-10.2) mg/dL AST (14-36) U/L Alkaline Phosphatase (38-126) U/L Total Protein (6.3-8.2) g/dL Albumin (3.5-5.0) g/dL Microbiology - Last 24 Hours (Table) 08/14/22 15:00 Blood Culture - Preliminary Blood No Growth after 96 hours Assessment and Plan (1) Sepsis Current Visit: Yes Status: Acute Code(s): A41.9 - SEPSIS, UNSPECIFIED ORGANISM SNOMED Code(s): 50909950 (2) UTI (urinary tract infection) Current Visit: No Status: Acute Code(s): N39.0 - URINARY TRACT INFECTION, SITE NOT SPECIFIED SNOMED Code(s): 94718802 Plan: 1patient with sepsis/septic shock in this patient is in the hospital with syncopal episode of weakness patient is now intubated on the vent and requiring high dose pressor support to maintain her blood pressure, the patient is growing gram-negative bacilli in the blood could be related to the urine as she is growing gram-negative as well as enterococcus in the urine versus related to the right lower lobe pneumonia and possible abdominal source 2 urine culture did grew drug resistant Pseudomonas , blood culture is growing gram-negative which has been identified as anaerobic gram-negative bacilli, and repeat blood culture is growing yeast likely GI source, 3 patient did have worsening of her clinical condition with a new fever also noticed to have some abdominal distention and diarrhea, we will repeat her blood cultures UA cultures and also check a stool for C. diff the patient did have improvement in the kidney function and Zerbexa dose needs to be adjusted up discuss with the pharmacist, will benefit from a CT of abdominal pelvis however the patient is too unstable to go for a CT per the nursing staff at the bedside questions were answered Time with Patient: Less than 30
[2022-08-19] MEDS: ACETAMINOPHEN TAB 325 MG TAB PO PRN (23:30)
[2022-08-19 23:48] LABS: Glucose,Whole Blood 260 mg/dL (70-110)
[2022-08-19] MEDS ORDERED: SODIUM CHLORIDE 0.9% 2,000 ML IV ONE (23:48)
[2022-08-20] MEDS: IPRATROPIUM-ALBUTEROL 3 ML NEB INHALATION SCH ×5 (04:09→19:30)
[2022-08-20 05:43] LABS: ABG HCO3 17 mmol/L (21-25); ABG Oxygen Saturation 92.4 % (94-97); ABG PCO2 43 mmHg (35-45); ABG PO2 76 mmHg (83-108); ABG TCO2 18 mmol/L (19-24); Allen Test Performed? Yes
[2022-08-20 05:45] LABS: Glucose,Whole Blood 290 mg/dL (70-110)
[2022-08-20 06:08] LABS: Albumin 1.4 g/dL (3.5-5.0); Calcium 6.7 mg/dL (8.4-10.2); Magnesium 1.8 mg/dL (1.6-2.3); Phosphorus 3.9 mg/dL (2.5-4.5); Potassium 4.7 mmol/L (3.5-5.1); Total Bilirubin 0.3 mg/dL (0.2-1.3); Total Protein 3.9 g/dL (6.3-8.2)
[2022-08-20] MEDS: 1: MVI, ADULT NO.4 WITH VIT K 10 ML, TRACE (CONC-1ML/DOSE) 1 ML, POTASSIUM ACETATE 20 ME IV SCH ×7 (06:09)
[2022-08-20] MEDS: INSULIN DETEMIR (LEVEMIR) 100 UNIT/ML SYR SQ SCH (06:24)
[2022-08-20] MEDS: INSULIN ASPART (NovoLOG) 100 UNIT/ML VIAL SQ SCH ×4 (06:24→20:30)
[2022-08-20] MEDS: AMIODARONE 450 MG in DEXTROSE 5% IN WATER 250 ML IV SCH ×6 (06:30→20:46)
[2022-08-20 06:31] LABS: Anisocytosis Slight; HCT 29.8 % (34.0-46.0); Hypochromasia Marked; MCH 26.9 pg (25.0-35.0); MCHC 29.2 g/dL (31.0-37.0); MCV 92.1 fL (80.0-100.0); Mean Platelet Volume 8.3; Platelet Count 330 k/uL (150-450); Poikilocytosis Slight; RBC 3.23 m/uL (3.80-5.40); RDW 17.2 % (11.5-15.5); WBC 26.6 k/uL (3.8-10.6)
[2022-08-20] MEDS: NOREPINEPHRINE 32 MG in SODIUM CHLORIDE 0.9% 218 ML IV SCH ×2 (06:58→20:29)
[2022-08-20 07:02] LABS: HGB 8.7 gm/dL (11.4-16.0)
--- NOTE | 2022-08-20 07:03 | XR ---
EXAMINATION TYPE: XR chest 1V portable DATE OF EXAM: 08/20/2022 COMPARISON: 08/19/2022 HISTORY: SOB, Follow Up FINDINGS: Indwelling tubes and catheters are unchanged. No change in bibasilar opacities. Stable appearance of the cardio-mediastinal structures at this time. IMPRESSION: 1. Stable portable chest. Clinical correlation and follow up until resolution is recommended.
[2022-08-20] MEDS ORDERED: VANCOMYCIN 2,000 MG in SODIUM CHLORIDE 0.9% 500 ML 500 ML IVPB ONE (08:00)
[2022-08-20] MEDS ORDERED: MAGNESIUM SULFATE-D5W PMX 1 GM in DEXTROSE/WATER 1 100ML.BAG IVPB ONE (08:04)
[2022-08-20] MEDS: BUDESONIDE 1 MG/2 ML NEBU INHALATION SCH ×2 (08:09→19:30)
[2022-08-20] MEDS: FORMOTEROL FUMARATE 20 MCG/2 ML NEBU INHALATION SCH ×2 (08:09→19:30)
[2022-08-20] MEDS: PANTOPRAZOLE 40 MG/10 ML VIAL IVP SCH (08:14)
[2022-08-20] MEDS: CEFTOLOZANE/TAZOBACTAM 0.75 GM in SODIUM CHLORIDE 0.9% 100 ML IV SCH ×2 (08:15→16:58)
--- NOTE | 2022-08-20 09:20 | P.PN ---
Subjective Progress Note Date: 08/20/22 cements, hypothyroidism, morbid obesity, multiple orthopedic surgeries, congestive heart failure, diabetes bella, hypertension, hyperlipidemia, osteoarthritis, obstructive sleep apnea on BiPAP, CVA/TIA, oxygen dependent and she was recently discharged from here to [facility] on the [place] and was just home for 3 days when she developed a syncopal episode yesterday. Her that may related to low blood sugar and try to give her oral issues which she vomited. She was brought into the emergency room yesterday. She is seen today in consultation. She remains in the emergency department. She is sitting up in bed. She is basically just moaning and groaning. Her family is at the bedside and provides him permission. She was initially placed on BiPAP. She is currently on 6 L high flow nasal cannula with O2 saturations in the 90s. Afebrile. Somewhat hypotensive. Blood culture reveals no growth to date. Urine culture pending. White count 19.1. Hemoglobin 8.0. Sodium 136. Potassium 4.6. Bicarb 17. BUN 66. Creatinine 2.27. Glucose 145. D-dimer 4.73. ProBNP 426. Troponin negative 1. CT angiogram ruled out pulmonary embolism. There is evidence of cardiomegaly with pulmonary vascular congestion. Scattered airspace opacities more consolidation in the right lung base. Rule out aspiration. Computed tomography scan of the abdomen and pelvis revealed extensive stool burden throughout the colon. 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 Today's chest x-ray shows Nasogastric tube in place. Mild cardiomegaly with bibasilar acute infiltrate and/or ate lectasis. She's been initiated on Symbicort, DuoNeb inhalations, antibiotics in the form of Levaquin. She is anticoagulated with Eliquis. The patient is seen today for per 2022 in follow-up in the intensive care unit. Just after midnight they called an a team on her due to her being obtun ded and hypotensive. She was on the sixth liter Ventimask and they do arterial blood gases that revealed a pO2 of 136, pCO2 31, pH 7.28. She was placed on BiPAP 12/5 and 50% and transferred into the intensive care unit. She received 3 A of sodium bicarb. She has D5W with 3 A of sodium bicarb at 75 ML's per hour. She is on norepinephrine at 27 mcg/m. Vasopressin at 0.03 units per minute. 0.9 normal saline at 20 mL per hour. She did undergo central line placement and arterial line placement. Follow-up blood gases reveal a pO2 of 295. PCO2 of 48. PH is 7.20 100% FiO2. White count 8.7. Hemoglobin 8.2. Platelets 311. Sodium 134. Potassium 6.3. Chloride 110. Bicarb 13. BUN 81. Creatinine 2.68. Glucose 134. Pro-calcitonin 11.0. She remains on bronchodilators. Continued on antibiotics in the form of Levaquin and cefepime. Her culture positive for group D enterococcus and gram-negative bacilli. Blood culture reveals no growth. The patient is seen today 08/11/2022 in follow-up in the intensive care unit. She did have progressive shortness of breath and hypoxemia and was subsequently intubated and placed on mechanical ventilator yesterday. He is currently on assist control mode with a rate of 20, tidal volume 400, FiO2 50% PEEP of 5. Morning blood gases revealed a PaO2 of 99, pCO2 45, pH 7.30 that was on 60% FiO2. She developed atrial fibrillation requiring amiodarone as well. She is hypotensive and requiring norepinephrine at 55 mcg/m, vasopressin at 0.04 units per minute. She remains on D5W with 3 A of bicarbonate 100 ML's per hour. 0.9 normal saline at 20 ML's per hour. She remains on antibiotics in the form of Levaquin, cefepime and daptomycin. Urine culture is positive for Enterococcus faecalis and Pseudomonas aeruginosa. Blood cultures showing no growth. Chest x-ray reveals no significant change. Stable appearance of the cardiomediastinal structures. Pleural effusion unchanged. No change in bibasilar opacities. White count 12.2. Hemoglobin 8.6. Platelets 349. Sodium 139. Potassium 5.1. Bicarb 22. BUN 79. Creatinine 2.74. Glucose 221. Lactic acid 3.2. Calcium 5.8. Cortisol 45. She is continued on DuoNeb inhalations, Pulmicort and Perforomist inhalations. The patient is seen today 08/12/2022 in follow-up in the intensive care unit. She remains intubated on the mechanical ventilator in assist control mode at a r ate of 28, tidal volume 400, FiO2 50% and PEEP of 5. Morning blood gases revealed a pO2 of 115, pCO2 40, pH 7.4. She is currently sedated on propofol at 25 mcg/kg/m. She is on normal saline at 100 mL an hour. She is still requiring pressors in the form of norepinephrine at 55 mcg/m and vasopressin at 0.04 units per minute. She remains on antibiotics in the form of Zerbaxa, Levaquin and daptomycin. Urine culture was positive for Enterococcus faecalis and Pseudomonas aeruginosa. Blood cultures have revealed no growth. Sputum culture pending. White count 6.8. Hemoglobin 8.4. Platelets 268. Sodium 140. Potassium 4.5. BUN 81. Creatinine 2.72. Glucose 162. Calcium 6.0. AST 166. ALT 21. Alk phos 385. Currently in a +3.1 L balance. She is continued on DuoNeb inhalations, Pulmicort and Perforomist inhalations. The patient is seen today 08/13/2022 in follow-up in the intensive care unit. He remains intubated and on mechanical ventilator currently and assist-control mode at a rate of 28, tidal volume 400, FiO2 40% and a PEEP of 5. Morning blood gases revealed a pO2 of 100, pCO2 is 88 and a pH of 7.35. She did have issues with atrial fibrillation and rapid ventricular response and was seen by cardiology earlier this morning who initiated amiodarone bolus and started a drip at 1 mg/m. She has normal saline at 100 MLS per hour. Propofol at 20 mcg/kg/m. Norepinephrine at 36 mcg/m and vasopressin at 0.04 units per minute. Tube feeds are currently on hold per surgery for possible ileus. Chest x-ray shows similar bibasilar airspace opacities. Urine culture positive for Enterococcus faecalis and pseudomonas aeruginosa. Blood culture preliminary positive for anaerobic gram-negative bacilli. Sputum culture hasn't for Ange. White count 9.6. Hemoglobin 8.2. Platelets 244. Sodium 141. Potassium 3.5. Bicarb 20. BUN 75. Creatinine 2.52. Glucose 159. Calcium 5.6. AST 162. ALT 19. Albumin 1.8. Currently in a +312 mL balance. She is currently on bronchodilators. Remains on Eraxis, Zerbaxa, daptomycin. Currently on Lovenox with pharmacy to dose. 08/14/2022, I'm seeing the patient for a follow-up. A very complicated case of a septic shock and 87-year-old female patient weighs currently on mechanical ventilator. The patient has had recurrent [place] tract infection in addition to multitude of comorbidities. She came with a septic shock and suspected bowel obstruction. In summary, the patient came with a septic shock and multisystem organ failure, currently intubated on a mechanical ventilator. This morning, she is on propofol running at 20 mcg/kg/m and she is calm and comfortable in bed at 6 with a mechanical ventilator. She'll assist-control mode of mechanical ventilation at the rate of 28 with a tidal volume of 400 and FiO2 40% with a PEEP of 5. Blood gas from today shows a pH of 7.37 with a pCO2 of 38 and pO2 113. Chest x-ray was also noted from today and there is adequate positioning of the orotracheal tube. There is also persistent bilateral pulmonary infiltrates and small effusions. There may be an underlying component of CHF. Airspace disease is seen in the left perihilar and right lower lobe area. Hemod ynamically, the patient is on pressors and norepinephrine is running at 0.14 mcg/kg/m and she is also on a physiologic dose of vasopressin. She remains active fibrillation and she does have a rapid ventricular response in her heart rate is around 120. She is on a broad-spectrum antibiotic coverage. She is currently on a combination of an axis and Zerbaxa and the cultures that were obtained earlier showed Pseudomonas that was multidrug resistance and Enterococcus faecalis in her urine, there was an anaerobic gram-negative bacillus in the blood, and there was also Ange and the blood. Hence, the antibiotic coverage was adjusted. In terms of her white cell count, she is currently running a white second of 11.2 with a hemoglobin of 7.8 and a platelet count of 229. Electrolytes are stable with a sodium of 144, potassium is at 3.0 with these to be replaced, BUN is at 67 with a creatinine of 2.21. The blood sugars at 147. The patient was taken off the amiodarone drip. The patient is on Levemir insulin 10 units and she is also receiving a sliding scale coverage. She is nothing by mouth. NG tube is in place. Output has been dark gastric material and output is minimal in the order of 500 mL per 24 hours, quite liquidy. Abdomen is soft, the patient was given several enemas without any successful bowel movement. Her previous echocardiogram from March 2022 as shown a moderate degree of aortic stenosis. Hylton cath is in place. Urine output is in order of 100 mL an hour and the patient is currently on IV fluids in the form of normal saline at rate of 50 mL an hour. She is afebrile. The patient also has a stage II wound in her coccyx. Fluid balance over the past 24 hours has been in the order of 730 mL. 08/15/2022, the patient remains intubated on a mechanical ventilator and the patient is being seen for a follow-up. Obviously, the patient is still septic, hypotensive, with evidence of multisystem organ failure, still on pressors, still intubated on a mechanical ventilator. As summary, over the past 24 hours, the patient was kept on mechanical ventilator, kept on antibiotics and pressors. This morning, she is sedated with propofol which is running at 30 mcg/kg/m. She is fairly sentences mechanical ventilator. She is on assist-control mode at a rate of 28, tidal volume of 100, FiO2 40% with a PEEP of 5. The peak airway pressure is 25. The blood gas shows a pH of 7.32 with a pCO2 of 39 and a pO2 of 106. Chest x-ray findings of essentially unchanged with some limited airspace disease in the lung bases bilaterally. Orotracheal tube remains in a good location. Hemodynamically, the patient is on IV fluids running at 10 mL an hour of normal saline. She has been in a positive fluid balance. She has been off pressors and the patient is on a physiologic dose of vasopressin and norepinephrine infusion was brought up to 0.2 mcg/kg/m and this is slightly higher compared to yesterday. Review blood cultures were sent yesterday. The patient is still in tachycardia with an underlying rhythm of atrial fibrillation. Her previous echocardiogram from March 2022 was essentially within normal limits. The antibiotic coverage is essentially the same and the patient remains on a combination of Eraxis and Zerbaxa. She is spiking low- grade fevers and her T-max is 100.5. In terms of her feeding, I was again his TPN specially with her systemic fungal anemia. We will give the patient rectal exam and there was no identifiable stool in the rectum. Flat film of the abdomen showed constipation and fecal stasis. Based on that, the patient was given lactulose. She was started on triple feeding again and currently she is on vital AF at the rate of 10 mL an hour. We are going to also start the patient on lactulose and gradually advance her diet. Hoping to have a bowel movement. She had a smear on a bowel movement yesterday. In terms of fluid balance, the patient has been in a positive fluid balance of 250 mL over the pas t 24 hours. The rest of the blood work shows a white cell count of 11.2 from yesterday. Repeat blood work is pending for now in terms of CBC. The sodium is at 145, potassium is at 3.8, serum bicarb is at 19, BUN 61 with a creatinine of 1.7. Total calcium levels at 6.4 and ionized calcium is normal at 4.5. AST is at 106, ALP is at 14, alkaline phosphatase is at 311, serum albumin is at 1.7 with a total protein of 4.0. She has a stage II coccygeal wounds. Condition remains critical. Family is at the bedside. 08/16 2022, remains on a mechanical ventilator and the patient is being seen in follow-up. The patient this morning is on a propofol running at 15 mcg/kg/m. Within the proximal of gradually cutting down the sedation and assessing the patient's underlying mental status. Meanwhile, she remains septic in a mechanical ventilator and she is still hypotensive although her pressor requirements have somewhat improved compared to yesterday. this morning, she did assist-control at the rate of 28, tidal volume of 400, FiO2 40% with a PEEP of 5. The chest x-ray shows essentially no interval change with some limited airspace disease in the lung bases more so on the right. The blood gas showed a pH of 7.36 with a pCO2 of 39 and pO2 of 107. She is quite interested a mechanical ventilator. She is on IV fluids at KVO. She is on norepinephrine at 0.1 for microvascular kilogram per minute and she is also on physiologic dose of vasopressin. Her overall fluid balance since yesterday has been in the order of +254 mL. She is producing adequate amount of urine output and renal function continues to improve. On today's blood work, her sodium level is at 147, potassium level of 3.5, BUN is 59 with a creatinine of 1.59. The white cell count remains elevated at 20.2 with a hemoglobin of 7.8 and a platelet count of 272. Review blood cultures have been sent and the cultures are negative for now and the patient remains on the same antibiotic coverage which included Eraxis and Zerbaxa. . Another issue is constipation and difficulty to feed this patient. I did not favor TPN because of an underlying systemic candidemia. I try to check with either and she had increased residuals. For now, she is on a combination of MiraLAX, lactulose and Reglan. She did have a smear of stool earlier. She hasn't had any significant feeding for the past 5 days. At the same time, cardiac rhythm is atrial fibrillation. The patient remains on amiodarone at 0.5 mg/m. Her rate is ranging between 120 and 130. She is maintaining her pressure while being on pressors. 08/17/2022, patient remains intubated on a mechanical ventilator. She was given a sedation holiday yesterday. There was no meaningful neurologic recovery. The patient started breathing above the vent and she was becoming more tachypneic. Based on that, she was restarted at a lower dose of propofol which is currently at 10 mcg/kg/m. She remains intubated on a mechanical ventilator. She did assist-control mode at the rate of 28 with a tidal volume of 400 and FiO2 of 40% with a PEEP of 5. Correction patient is stable with a pO2 115. Her pH is at 7.32 with a pCO2 of 40. Her chest x-ray findings remain essentially unchanged. In terms of her GI tract, were unable to feed the patient and the patient is currently on TPN for nutritional support running at a rate of 30 mL an hour. The patient has been NG tube in place. She is receiving lactulose 4 times a day, IV Reglan and MiraLAX. No bowel movement activity yet. No abdominal distention. No abdominal pain or tenderness. The patient is doing better hemodynamically. She is on less pressors. Her norepinephrine is Down to 0.07 mcg/kg/m that she remains on vasopressin physiologic dose. She remains on the same antibiotic coverage for now. She is afebrile. The white cell count currently is at 19.7 with a hemoglobin of 7.3. Platelet count is at 283. The white cell count is stable compared to yesterday. The cultures from before were noted and the patient has been kept on a combination of Zerbaxa and Eraxis. She remains in atrial fibrillation and the patient remains on amiodarone at a dose of 0.5 mg/m. Heart rate is on the adequate control for now. Meanwhile, her sodium level today is at 147 and the patient continues to receive free water flushes through her OG. Her potassium is at 3.3, he is a 57 with a creatinine of 1.58. Potassium is at 3.3. LFTs are adequate with a drop in the alkaline phosphatase is down to 273, AST is at 70, ALTs at 21. The patient has a blood sugar of 273. The patient has been started on Levemir 10 units daily plus a sliding scale coverage. We will make further adjustments based on her blood sugar control over the next 24 hours. The patient is currently on KVO IV fluids. Fluid balance has been -830 mL over the past 24 hours. No diuretics for now. 08/18/2022, a she is being seen for a follow-up. This morning, the patient is off sedation and she is quite lethargic and still unresponsive. She is quite synchronous a mechanical ventilator. Is an assist-control mode rate of 28 with a tidal volume of 400 and FiO2 of 40% with a PEEP of 5. Chest x-ray findings are stable and there is no evidence of pneumonia and there is adequate aeration of the lungs bilaterally with adequate positioning of the ET tube. The blood gas shows a pH of 7.35 with a pCO2 of 40 and pO2 of 89. At the same time, the patient is improving hemodynamically. She is on IV fluids at KVO. She is on norepinephrine running at 0.04 mcg/kg/m and the patient is also on a physiologic dose of vasopressin. Urine output is adequate. Fluid balance is in order of - 1.6 L and the patient is given a dose of Lasix 40 mg IV push 1 yesterday. The same may need to be repeated today. She remains on TPN for nutritional support. After receiving an aggressive regimen of laxatives which included lactulose and MiraLAX and the patient was on promotility agent with Reglan, the patient started having some bowel movement with activity. NG tube is in place. Output is minimal. No abdominal distention. Her cardiac rhythm is still in atrial fibrillation. She had some issues with tachycardia overnight and for that reason the amiodarone dose was increased up to 1 mg/m. She is afebrile. She remains on the same antibiotic coverage for now. She is on Levemir insulin which is running at a dose of 15 units a day along with that she is receiving size. Coverage. In terms of her blood work, the white cell count of 16.5 and the patient has a hemoglobin of 7 with a platelet count of 301. Sodium is at 148, potassium is at 3, chloride is 119 and a bicarb is 23 with a BUN of 58 and a creatinine of 1.26. Noted the creatinine continues to improve. LFTs show an AST of 56, ALP of 13, alkaline phosphatase of 275. Albumin is at 1.7. The patient remains on Eliquis and she is currently receiving a dose of 5 mg by mouth twice a day. On 08/19/2022, I'm seeing the patient for a follow-up in the intensive care unit. This morning, the patient is off sedation. I believe she is off sedation for at least 24-48 hours. Unresponsive, not following any commands, not grimacing to painful stimulation, she is providing the mechanical ventilator and she is currently on assist control mode at a rate of 28, tidal volume of 400, FiO2 40% and a PEEP of 5. Chest x-ray findings of essentially stable and unchanged. The patient continues to have some atelectatic changes and infiltrates in lung bases bilaterally. No major interval change since yesterday. Meanwhile, the blood gas from today shows a pH of 7.37 with a pCO2 of 40 and pO2 of 99. No significant orotracheal secretions. She is calm and comfortable while being on a mechanical ventilator. Since yesterday, and in the senior marketing analyst hours, the patient started having large bowel movements. Noted the patient was being given a combination of MiraLAX and lactulose and Reglan. She had massive and large bowel movements and currently she has a fecal m anagement system in Place. Since senior marketing analyst hours, she has produced another 200 mL of liquidy stool. The patient has no significant abdominal distention. Noted the patient has been in OG tube in place and output has been in the order of 300 mL over the past 8 hours. She remains on TPN for nutritional support and she remains nothing by mouth. Meanwhile, hemodynamically, the patient remains in atrial fibrillation. She remains on amiodarone ip at 1 mg/m and her heart is irregular and tachycardic. She remains on pressors. Passive requirements have improved however, this morning, she is requiring more pressors and norepinephrine was at 0.06 Geo respiratory kilogram per minutes of this being titrated up and the patient remains on a physiologic dose of vasopressin. She did spike a temperature of 101 and the patient remains on the same antibiotic coverage for now which includes a combination of Zerbaxa and Eraxis. WBC count is at 19.9 with hemoglobin of 6.9 and a platelet count of 280. Sodium is at 147. Potassium is at 3.4. Carotids 118 with a bicarb of 23. Creatinine continues to improve and the creatinine is down to 1.1 with a BUN of 56. Blood sugar is at 203. Overall fluid balance has been in the order of -1.6 L over the past 24 hours. The patient was given a dose of Lasix yesterday, none today. Family is at the bedside. TPN is running at the rate of 65 mL an hour. 08/20/2022, I'm seeing the patient for a follow-up. Since yesterday, the patient has taken a turn to the worse. As of yesterday, the patient started having episodes of fever with a T-max of 103.1. At the same time, the patient's blood pressure was getting more soft and the patient was becoming more hypotensive in the urine output dropped considerably. As such, the patient had to be placed on a higher dose of pressors. The patient was given a total of 2 L of IV fluids. Vancomycin was also added to the regimen as the patient is taking currently a combination of Zerbaxa and Eraxis. On today's evaluation, the patient is still off sedation. The patient is on a mechanical ventilator on assist control mode of mechanical ventilation rate of 28 with a tidal volume of 400 and a PEEP of 5 and FiO2 of 40%. The chest x-ray shows limited bibasilar pulmonary infiltrates. ET tube is in a good location. No signs of any consolidation or pulmonary edema. The blood gas shows a pH of 7.2 with a pCO2 of 33 and a pO2 of 76. As such, the patient has become progressively more acidotic. Hemodynamically, the patient has become more hypotensive and the patient is currently on a combination of vasopressin physiologic dose and a norepinephrine had to be brought up to 0.2 mcg/kg/m. Urine output is extremely low at this point in time. The white cell count has come up to 26.6 from 19.9 and the hemoglobin is at 8.7. Noted the patient was given units of packed RBC for a hemoglobin of 6.9 yesterday and hemoglobin is at 8.7 today. The patient has become also acidotic. Urine is at 67 with a creatinine of 1.4. Serum bicarb is at 17 and this is a non-anion gap metabolic acidosis. Sodium is at 141 with a potassium level of 4.7. LFTs are normal. The patient is receiving TPN through a midline in the left upper extremity at the rate of 68 mL an hour. She also has a triple-lumen catheter in the left subclavian. The patient is in a positive fluid balance. The patient is still febrile. The patient is stooling. The laxatives have been discontinued. She is currently has a fecal management system in Place and stool was also sent for C. diff.. The patient is unresponsive to any verbal or painful stimulation at this point in time and she's been off sedation for the past 48 hours. His obvious component of metabolic encephalopathy secondary to ovulation comorbidities. She remains on amiodarone drip at 1 mg/m. She remains in atrial fibrillation. She is on anticoagulation with Eliquis 5 mg by mouth twice a day. Objective - Vital Signs Vital signs: Vital Signs Temp 100.3 F H 08/20/22 08:00 Pulse 125 H 08/20/22 08:34 Resp 30 H 08/20/22 08:00 BP 99/52 08/19/22 16:39 Pulse Ox 95 08/20/22 08:00 FiO2 40 08/20/22 08:00 Intake & Output 08/19/22 08/20/22 08/20/22 18:59 06:59 18:59 Intake Total 5956.484 4768.8573 114 Output Total 1810 255 4 Balance 4146.484 4513.8573 110 Weight 128 kg Intake: IV 186 3024 114 0.9% @ KVO 150 240 40 Potassium Acetate 20 meq 748 68 Calcium Gluconate 1 gm Magnesium Sulfate gm 0.5 gm Potassium Phosphate 10 mmol In Amino Acid 5%- D15w 1,000 ml @ 68 mls/hr IV .BY DURATION [facility] ANN Rx#: [id number] Pressure Bag 36 36 6 Sodium Chloride 0.9% 2, 2000 000 ml @ 999 mls/hr IV . Q2H1M ONE Rx#:[id number] Intake, IV Titration 4950.484 1744.8573 Amount Amiodarone 450 mg In 458.884 483.331 Dextrose 5% in Water 250 ml @ 1 MG/MIN 33.333 mls/ hr IV .Q7H30M [facility] Rx#: [id number] Anidulafungin 100 mg In 100 Sodium Chloride 0.9% 100 ml @ 84 mls/hr IVPB DAILY [facility] Rx#:[id number] Ceftolozane/Tazobactam 0. 100 75 gm In Sodium Chloride 0.9% 100 ml @ 100 mls/hr IV Q8HR [facility] Rx#:[id number] Mvi, Adult No.4 with Vit 68 K 10 ml Trace (Conc-1Ml/ Dose) 1 ml Potassium Acetate 20 meq Calcium Gluconate 1 gm Magnesium Sulfate gm 0.5 gm Potassium Phosphate 10 mmol In Amino Acid 5%- D15w 1,000 ml @ 68 mls/hr IV .BY DURATION [facility] Rx#: [id number] Norepinephrine 32 mg In 67.710 169.193 Sodium Chloride 0.9% 218 ml @ 0.5 MCG/KG/MIN 25. 547 mls/hr IV .Q9H48M [facility] Rx#:[id number] Potassium Acetate 20 meq 734 1092.3333 Calcium Gluconate 1 gm Magnesium Sulfate gm 0.5 gm Potassium Phosphate 10 mmol In Amino Acid 5%- D15w 1,000 ml @ 68 mls/hr IV .BY DURATION [facility] Rx#: [id number] Potassium Chloride 20 meq 300 In Water For Injection 1 100ml.bag @ 50 mls/hr IVPB Q2H [facility] Rx#: [id number] Sodium Chloride 0.9% 1, 1000 000 ml @ 999 mls/hr IV . Q1H1M [facility] Rx#:[id number] Sodium Chloride 0.9% 1, 2000 000 ml @ 999 mls/hr IV . Q1H1M [facility] Rx#:[id number] Vasopressin 60 unit In 121.89 Sodium Chloride 0.9% 150 ml @ 0.04 UNITS/MIN 6.12 mls/hr IV .Q24H [facility] Rx#: [id number] Oral 150 Blood Product 620 Rc As-1 Unit 310 [id number] Other 50 Rc As-1 Unit 50 [id number] Output: Gastric Drainage 450 Urine 560 55 4 Stool 800 200 Other: Voiding Method Indwelling Catheter Indwelling Catheter ABP, PAP, CO, CI - Last Documented Arterial Blood Pressure 102/45 - Exam GENERAL EXAM: Intubated, sedated, 87-year-old morbidly obese female, on 40% FiO2 and a PEEP of 5. HEAD: Normocephalic. EYES: Sluggish reaction of pupils, equal size. NOSE: Nasogastric tube secured in place. Clear with pink turbinates. THROAT: Oral endotracheal tube in place. NECK: No masses, no JVD. CHEST: No chest wall deformity. LUNGS: Equal air entry with crackles in the bilateral bases. CVS: S1 and S2 normal with no audible murmur, irregular rhythm. ABDOMEN: No hepatosplenomegaly, normal bowel sounds, no guarding or rigidity. SPINE: No scoliosis or deformity SKIN: No rashes CENTRAL NERVOUS SYSTEM: Sedated, tone is normal in all 4 extremities. EXTREMITIES: There is 1-2+ peripheral edema. Changes of chronic venous stasis. No clubbing, no cyanosis. Peripheral pulses are intact. - Labs CBC & Chem 7: 08/20/22 05:43 08/20/22 05:43 Labs: Abnormal Lab Results - Last 24 Hours (Table) 08/19/22 08/19/22 08/19/22 Range/Units 05:10 12:05 12:33 WBC (3.8-10.6) k/uL RBC (3.80-5.40) m/uL Hgb (11.4-16.0) gm/dL Hct (34.0-46.0) % MCHC (31.0-37.0) g/dL RDW (11.5-15.5) % ABG pH (7.35-7.45) ABG pO2 (83-108) mmHg ABG HCO3 (21-25) mmol/L ABG Total CO2 (19-24) mmol/L ABG O2 Saturation (94-97) % Chloride (98-107) mmol/L Carbon Dioxide (22-30) mmol/L BUN (7-17) mg/dL Creatinine (0.52-1.04) mg/dL Glucose (74-99) mg/dL POC Glucose (mg/dL) 211 H (70-110) mg/dL Calcium (8.4-10.2) mg/dL AST (14-36) U/L Alkaline Phosphatase (38-126) U/L C-Reactive Protein 36.1 H (<1.0) mg/dL Total Protein (6.3-8.2) g/dL Albumin (3.5-5.0) g/dL Crossmatch See Detail 08/19/22 08/19/22 08/20/22 Range/Units 17:58 23:46 05:40 WBC (3.8-10.6) k/uL RBC (3.80-5.40) m/uL Hgb (11.4-16.0) gm/dL Hct (34.0-46.0) % MCHC (31.0-37.0) g/dL RDW (11.5-15.5) % ABG pH 7.20 L (7.35-7.45) ABG pO2 76 L (83-108) mmHg ABG HCO3 17 L (21-25) mmol/L ABG Total CO2 18 L (19-24) mmol/L ABG O2 Saturation 92.4 L (94-97) % Chloride (98-107) mmol/L Carbon Dioxide (22-30) mmol/L BUN (7-17) mg/dL Creatinine (0.52-1.04) mg/dL Glucose (74-99) mg/dL POC Glucose (mg/dL) 193 H 260 H (70-110) mg/dL Calcium (8.4-10.2) mg/dL AST (14-36) U/L Alkaline Phosphatase (38-126) U/L C-Reactive Protein (<1.0) mg/dL Total Protein (6.3-8.2) g/dL Albumin (3.5-5.0) g/dL Crossmatch 08/20/22 08/20/22 08/20/22 Range/Units 05:43 05:43 05:44 WBC 26.6 H (3.8-10.6) k/uL RBC 3.23 L (3.80-5.40) m/uL Hgb 8.7 L D (11.4-16.0) gm/dL Hct 29.8 L (34.0-46.0) % MCHC 29.2 L (31.0-37.0) g/dL RDW 17.2 H (11.5-15.5) % ABG pH (7.35-7.45) ABG pO2 (83-108) mmHg ABG HCO3 (21-25) mmol/L ABG Total CO2 (19-24) mmol/L ABG O2 Saturation (94-97) % Chloride 118 H (98-107) mmol/L Carbon Dioxide 17 L (22-30) mmol/L BUN 67 H (7-17) mg/dL Creatinine 1.44 H (0.52-1.04) mg/dL Glucose 253 H (74-99) mg/dL POC Glucose (mg/dL) 290 H (70-110) mg/dL Calcium 6.7 L (8.4-10.2) mg/dL AST 38 H (14-36) U/L Alkaline Phosphatase 205 H (38-126) U/L C-Reactive Protein (<1.0) mg/dL Total Protein 3.9 L (6.3-8.2) g/dL Albumin 1.4 L (3.5-5.0) g/dL Crossmatch Microbiology - Last 24 Hours (Table) 08/19/22 18:00 Stool Culture - Preliminary Stool 08/14/22 15:00 Blood Culture - Preliminary Blood No Growth after 120 hours Assessment and Plan Plan: Acute on chronic hypoxemic respiratory failure secondary to suspected diastolic congestive heart failure. The patient did deteriorate on 08/10/2022 requiring intubation mechanical ventilatory support. She has a component of CHF and multiple infiltrates bilaterally, as superinfection with a pneumonia cannot be completely ruled out. X-ray findings are the same. Blood gas is adequate for this morning. No major change in her blood gas or chest x-ray on today's evaluation. Overall respiratory status is stable for now. The patient is oxygenating well. Septic shock secondary to above, now requiring pressor support in the form of norepinephrine and vasopressin, still hypotensive, still requiring pressors,, though was recommended antibiotics with a combination of Eraxis and Zerbaxa, and subsequently, the patient's condition decompensated and the patient became febrile developed leukocytosis and became more hypotensive. She is receiving TPN for nutritional support. She has lines including a midline in left upper extremity and subclavian triple-lumen catheter. Cultures will be sent. Vancomycin was started. Given a total of 2 L of IV fluids. Currently on high dose of norepinephrine and physiologic dose of vasopressin. Anion gap metabolic acidosis secondary to above Fever Worsening leukocytosis Established urinary tract infection, sepsis. Urine culture positive for Enterococcus faecalis and Pseudomonas aeruginosa Systemic candidiasis with positive culture with Ange Anaerobic gram-negative bacteria in the blood Atrial fibrillation with a rapid ventricular response initiated on amiodarone drip and the patient remains on amiodarone at 1 mg/m Chronic constipation with significant stool impaction , currently has a fecal management system in place and we immobilized the stool Previous history of urinary tract infections History of atrial fibrillation on Eliquis in the outpatient Acute on chronic kidney disease, recovering and renal function continues to improve Recent COVID-19 infection History of valvular heart disease with aortic valve stenosis and preserved LV function, based on an echocardiogram from March 2022 Chronic changes in the right lower lobe with small right pleural effusion Acute on chronic anemia my current hemoglobin 7.0 and the patient remains on anticoagulation with Eliquis History of chronic obstructive pulmonary disease History of prior tobacco dependence History of diastolic congestive heart failure History of coronary disease with multiple stent placements History of CVA/TIA History of diabetes mellitus, adequate blood sugar control for now and the patient is on Levemir insulin units plus a sliding scale insulin coverage Morbid obesity Hypertension Hyperlipidemia Hypothyroidism Poor overall functional performance based on the above-mentioned multiple comorbidities with recent stay and ECF Plan: Keep the patient off sedation, very important to continue monitoring the mental status off sedation Ventilator support, no vent changes will be done for today Continue antibiotic coverage and the patient is on Zerbaxa , axis and vancomycin Awaiting follow-up cultures Continue IV fluids and the patient will be placed on a bicarbonate infusion per recommendations made by nephrology Monitor and assess mental status Stop TPN for now Monitor blood pressure and gradually wean off the pressors if possible, norepinephrine first Continue amiodarone for rate control, the dose has been increased to 1 mg/m Eliquis 5 mg twice a day. Repeat blood cultures are negative monitor fever pattern and reculture was done the patient should there be another febrile episode Overall prognosis remains poor May need to replace her lines of the later stage and this will depend on her follow-up cultures. Keep the triple-lumen catheter in place for now. We will continue to follow and make further recommendations based on her clinical status Is extremely critical. Case was discussed with the daughter at the bedside. We'll continue to follow. Evaluation was done >30 min Time with Patient: Greater than 30
[2022-08-20] MEDS: CHLORHEXIDINE GLUCONATE 15 ML CUP MUCOUS MEM SCH ×2 (09:47→20:30)
[2022-08-20] MEDS: APIXABAN 5 MG TAB PO SCH (09:47)
[2022-08-20] MEDS: ANIDULAFUNGIN 100 MG in SODIUM CHLORIDE 0.9% 100 ML IVPB SCH (09:47)
--- NOTE | 2022-08-20 09:47 | P.PN ---
Subjective Patient is seen in follow-up for acute kidney injury. Renal function worse. Received a total of 4 L of fluid in the last 24 hours. Oliguric. Intubated. Currently on Levophed and vasopressin. Receiving TPN. Sodium level normal today. Developed temperature of 103F last night. On amiodarone drip for A. fib. Son present at bedside. Vital signs are stable. On vasopressor support. General: Resting in bed. HEENT: Intubated. LUNGS: Breath sounds decreased. HEART: Irregular rate and rhythm. ABDOMEN: Soft, obese. EXTREMITITES: Trace edema. Objective - Vital Signs Vital signs: Vital Signs Temp 100.3 F H 08/20/22 08:00 Pulse 128 H 08/20/22 09:00 Resp 28 H 08/20/22 09:00 BP 99/52 08/19/22 16:39 Pulse Ox 95 08/20/22 09:00 FiO2 40 08/20/22 09:00 Intake & Output 08/19/22 08/20/22 08/20/22 18:59 06:59 18:59 Intake Total 5956.484 4768.8573 114 Output Total 1810 255 4 Balance 4146.484 4513.8573 110 Weight 128 kg Intake: IV 186 3024 114 0.9% @ KVO 150 240 40 Potassium Acetate 20 meq 748 68 Calcium Gluconate 1 gm Magnesium Sulfate gm 0.5 gm Potassium Phosphate 10 mmol In Amino Acid 5%- D15w 1,000 ml @ 68 mls/hr IV .BY DURATION [facility] Rx#: [id number] Pressure Bag 36 36 6 Sodium Chloride 0.9% 2, 2000 000 ml @ 999 mls/hr IV . Q2H1M [facility] Rx#:[id number] Intake, IV Titration 4950.484 1744.8573 Amount Amiodarone 450 mg In 458.884 483.331 Dextrose 5% in Water 250 ml @ 1 MG/MIN 33.333 mls/ hr IV .Q7H30M [facility] Rx#: [id number] Anidulafungin 100 mg In 100 Sodium Chloride 0.9% 100 ml @ 84 mls/hr IVPB DAILY [facility] Rx#:[id number] Ceftolozane/Tazobactam 0. 100 75 gm In Sodium Chloride 0.9% 100 ml @ 100 mls/hr IV Q8HR [facility] Rx#:[id number] Mvi, Adult No.4 with Vit 68 K 10 ml Trace (Conc-1Ml/ Dose) 1 ml Potassium Acetate 20 meq Calcium Gluconate 1 gm Magnesium Sulfate gm 0.5 gm Potassium Phosphate 10 mmol In Amino Acid 5%- D15w 1,000 ml @ 68 mls/hr IV .BY DURATION [facility] Rx#: [id number] Norepinephrine 32 mg In 67.710 169.193 Sodium Chloride 0.9% 218 ml @ 0.5 MCG/KG/MIN 25. 547 mls/hr IV .Q9H48M [facility] Rx#:[id number] Potassium Acetate 20 meq 734 1092.3333 Calcium Gluconate 1 gm Magnesium Sulfate gm 0.5 gm Potassium Phosphate 10 mmol In Amino Acid 5%- D15w 1,000 ml @ 68 mls/hr IV .BY DURATION [facility] Rx#: [id number] Potassium Chloride 20 meq 300 In Water For Injection 1 100ml.bag @ 50 mls/hr IVPB Q2H [facility] Rx#: [id number] Sodium Chloride 0.9% 1, 1000 000 ml @ 999 mls/hr IV . Q1H1M [facility] Rx#:[id number] Sodium Chloride 0.9% 1, 2000 000 ml @ 999 mls/hr IV . Q1H1M [facility] Rx#:[id number] Vasopressin 60 unit In 121.89 Sodium Chloride 0.9% 150 ml @ 0.04 UNITS/MIN 6.12 mls/hr IV .Q24H [facility] Rx#: [id number] Oral 150 Blood Product 620 Rc As-1 Unit 310 [id number] Other 50 Rc As-1 Unit 50 [id number] Output: Gastric Drainage 450 Urine 560 55 4 Stool 800 200 Other: Voiding Method Indwelling Catheter Indwelling Catheter ABP, PAP, CO, CI - Last Documented Arterial Blood Pressure 104/45 - Labs CBC & Chem 7: 08/20/22 05:43 08/20/22 05:43 Labs: Abnormal Lab Results - Last 24 Hours (Table) 08/19/22 08/19/22 08/19/22 Range/Units 05:10 12:05 12:33 WBC (3.8-10.6) k/uL RBC (3.80-5.40) m/uL Hgb (11.4-16.0) gm/dL Hct (34.0-46.0) % MCHC (31.0-37.0) g/dL RDW (11.5-15.5) % ABG pH (7.35-7.45) ABG pO2 (83-108) mmHg ABG HCO3 (21-25) mmol/L ABG Total CO2 (19-24) mmol/L ABG O2 Saturation (94-97) % Chloride (98-107) mmol/L Carbon Dioxide (22-30) mmol/L BUN (7-17) mg/dL Creatinine (0.52-1.04) mg/dL Glucose (74-99) mg/dL POC Glucose (mg/dL) 211 H (70-110) mg/dL Calcium (8.4-10.2) mg/dL AST (14-36) U/L Alkaline Phosphatase (38-126) U/L C-Reactive Protein 36.1 H (<1.0) mg/dL Total Protein (6.3-8.2) g/dL Albumin (3.5-5.0) g/dL Crossmatch See Detail 08/19/22 08/19/22 08/20/22 Range/Units 17:58 23:46 05:40 WBC (3.8-10.6) k/uL RBC (3.80-5.40) m/uL Hgb (11.4-16.0) gm/dL Hct (34.0-46.0) % MCHC (31.0-37.0) g/dL RDW (11.5-15.5) % ABG pH 7.20 L (7.35-7.45) ABG pO2 76 L (83-108) mmHg ABG HCO3 17 L (21-25) mmol/L ABG Total CO2 18 L (19-24) mmol/L ABG O2 Saturation 92.4 L (94-97) % Chloride (98-107) mmol/L Carbon Dioxide (22-30) mmol/L BUN (7-17) mg/dL Creatinine (0.52-1.04) mg/dL Glucose (74-99) mg/dL POC Glucose (mg/dL) 193 H 260 H (70-110) mg/dL Calcium (8.4-10.2) mg/dL AST (14-36) U/L Alkaline Phosphatase (38-126) U/L C-Reactive Protein (<1.0) mg/dL Total Protein (6.3-8.2) g/dL Albumin (3.5-5.0) g/dL Crossmatch 08/20/22 08/20/22 08/20/22 Range/Units 05:43 05:43 05:44 WBC 26.6 H (3.8-10.6) k/uL RBC 3.23 L (3.80-5.40) m/uL Hgb 8.7 L D (11.4-16.0) gm/dL Hct 29.8 L (34.0-46.0) % MCHC 29.2 L (31.0-37.0) g/dL RDW 17.2 H (11.5-15.5) % ABG pH (7.35-7.45) ABG pO2 (83-108) mmHg ABG HCO3 (21-25) mmol/L ABG Total CO2 (19-24) mmol/L ABG O2 Saturation (94-97) % Chloride 118 H (98-107) mmol/L Carbon Dioxide 17 L (22-30) mmol/L BUN 67 H (7-17) mg/dL Creatinine 1.44 H (0.52-1.04) mg/dL Glucose 253 H (74-99) mg/dL POC Glucose (mg/dL) 290 H (70-110) mg/dL Calcium 6.7 L (8.4-10.2) mg/dL AST 38 H (14-36) U/L Alkaline Phosphatase 205 H (38-126) U/L C-Reactive Protein (<1.0) mg/dL Total Protein 3.9 L (6.3-8.2) g/dL Albumin 1.4 L (3.5-5.0) g/dL Crossmatch Microbiology - Last 24 Hours (Table) 08/19/22 18:00 Stool Culture - Preliminary Stool 08/14/22 15:00 Blood Culture - Preliminary Blood No Growth after 120 hours Assessment and Plan Plan: Assessment: 1. Acute kidney injury secondary to ATN secondary to septic shock. Baseline creatinine near 0.8 from June 2022 - peaked at 2.77 this admission - 1.44 today. Oliguric. No hydronephrosis noted on CAT scan. 2. Septic shock secondary to UTI, fungemia and bacteremia. On antibiotics/antifungal and vasopressor support. 3. Metabolic acidosis secondary to acute kidney injury and IV fluids. 4. Hypokalemia from poor intake and diuresis. Replaced. Improved. 5. Acute hypoxic respiratory failure. 6. A. fib with RVR. On amiodarone drip. Cardiology following. 8. Hypernatremia from lack of oral water intake. Status post water flushes. Improved. Plan: Resume bicarb drip at 75 mL an hour. Lasix 80 mg IV once today. Wean FiO2 and vasopressors. Avoid nephrotoxins. Continue to monitor renal function and urine output. Continue to assess daily for need for renal replacement therapy. Due to fungemia, TPN will be discontinued and midline to be removed. Discussed with ICU team.
[2022-08-20] MEDS: TAMSULOSIN 0.4 MG CAP.ER.24H PO SCH (09:48)
[2022-08-20] MEDS: polyethylene glycoL 3350 17 GM POWD.PACK PO SCH ×2 (09:48→20:46)
[2022-08-20] MEDS: DEXTROSE 5% IN WATER 1,000 ML with SODIUM BICARB (1 MEQ/ML) 150 ML IV SCH (10:12)
[2022-08-20] MEDS ORDERED: IOPAMIDOL CONTRAST (ORAL USE) VIAL PO PRN (10:47)
--- NOTE | 2022-08-20 10:49 | P.PN ---
Progress Note - Text Progress Note Date: 08/20/22 Patient remains in the ICU. She has had multiple stools. On exam her abdomen is soft. Patient's constipation is resolving. She'll continue to have supportive care.
--- NOTE | 2022-08-20 10:58 | P.PN ---
Subjective Progress Note Date: 08/20/22 This is Dallas Krishnan NP, I'm dictating on behalf of Dr. Dorado's H&P and A&P. Patient was interviewed and examined. The patient is an 87-year-old female with multiple comorbid conditions who is currently admitted to the hospital with bowel obstruction and septicemia. Cardiology was consulted for a syncopal episode just prior to admission. Cardiology has signed off but then was again for A. fib with RVR. Dr Dorado recommended amiodarone drip for rate control. The patient has a poor prognosis as she is currently ventilated on vasopressors and is deemed a high risk surgical candidate. She currently remains intubated and sedated. The amiodarone drip continues, the patient continues to exhibit elevated heart rates. Nursing reports today the patient's Levophed has been increased, and her TPN has been stopped because they think she has another infection. She was running a fever today at 100.3. GENERAL: Ill-appearing, well-nourished and in no acute distress. On ventilator, currently sedated. NECK: Supple without JVD or thyromegaly. LUNGS: Breath sounds coarse to auscultation bilaterally. Respiration equal and unlabored. Rhonchi throughout. HEART: Irregular rate and rhythm without murmurs, rubs or gallops. S1 and S2 heard. EXTREMITIES: Normal range of motion, moderate edema. No clubbing or cyanosis. VITALS: Temp 100.3, pulse 124, respirations 30, blood pressure 102/45, O2 saturation 95% on mechanical ventilation TELEMETRY: A. fib with RVR LABS: White count 26.6, hemoglobin 8.7, platelets 3:30, sodium 141, potassium 4.7, B1 67, creatinine 1.44, magnesium 1.8 IMPRESSION: 1. A. fib with RVR, currently on amiodarone for rate control 2. Septicemia 3. Acute kidney injury, improving 4. Elevated liver enzymes, improving 5. Acute respiratory failure on vasopressors 6. GI bleed with acute bowel obstruction PLAN: Continue amiodarone at 1 mg continuous Patient is a high risk surgical candidate Continue supportive treatment Further recommendations based on patient's clinical course Objective - Vital Signs Vital signs: Vital Signs Temp 100.3 F H 08/20/22 08:00 Pulse 129 H 08/20/22 10:00 Resp 22 08/20/22 10:00 BP 99/52 08/19/22 16:39 Pulse Ox 96 08/20/22 10:00 FiO2 40 08/20/22 09:00 Intake & Output 08/19/22 08/20/22 08/20/22 18:59 06:59 18:59 Intake Total 5956.484 4768.8573 795.285 Output Total 1810 255 9 Balance 4146.484 4513.8573 786.285 Weight 128 kg Intake: IV 186 3024 120 0.9% @ KVO 150 240 40 Potassium Acetate 20 meq 748 68 Calcium Gluconate 1 gm Magnesium Sulfate gm 0.5 gm Potassium Phosphate 10 mmol In Amino Acid 5%- D15w 1,000 ml @ 68 mls/hr IV .BY DURATION [facility] Rx#: [id number] Pressure Bag 36 36 12 Sodium Chloride 0.9% 2, 2000 000 ml @ 999 mls/hr IV . Q2H1M [facility] Rx#:[id number] Intake, IV Titration 4950.484 1744.8573 675.285 Amount Amiodarone 450 mg In 458.884 483.331 Dextrose 5% in Water 250 ml @ 1 MG/MIN 33.333 mls/ hr IV .Q7H30M [facility] Rx#: [id number] Anidulafungin 100 mg In 100 100 Sodium Chloride 0.9% 100 ml @ 84 mls/hr IVPB DAILY [facility] Rx#:[id number] Ceftolozane/Tazobactam 0. 100 100 75 gm In Sodium Chloride 0.9% 100 ml @ 100 mls/hr IV Q8HR [facility] Rx#:[id number] Magnesium Sulfate-D5w Pmx 100 1 gm In Dextrose/Water 1 100ml.bag @ 100 mls/hr IVPB [facility] Rx#: [id number] [facility], Adult No.4 with Vit 68 K 10 ml Trace (Conc-1Ml/ Dose) 1 ml Potassium Acetate 20 meq Calcium Gluconate 1 gm Magnesium Sulfate gm 0.5 gm Potassium Phosphate 10 mmol In Amino Acid 5%- D15w 1,000 ml @ 68 mls/hr IV .BY DURATION [facility] Rx#: [id number] Norepinephrine 32 mg In 67.710 169.193 41.285 Sodium Chloride 0.9% 218 ml @ 0.5 MCG/KG/MIN 25. 547 mls/hr IV .Q9H48M [facility] Rx#:[id number] Potassium Acetate 20 meq 734 1092.3333 Calcium Gluconate 1 gm Magnesium Sulfate gm 0.5 gm Potassium Phosphate 10 mmol In Amino Acid 5%- D15w 1,000 ml @ 68 mls/hr IV .BY DURATION [facility] Rx#: [id number] Potassium Chloride 20 meq 300 In Water For Injection 1 100ml.bag @ 50 mls/hr IVPB Q2H [facility] Rx#: [id number] Sodium Chloride 0.9% 1, 1000 000 ml @ 999 mls/hr IV . Q1H1M [facility] Rx#:[id number] Sodium Chloride 0.9% 1, 2000 000 ml @ 999 mls/hr IV . Q1H1M [facility] Rx#:[id number] Vancomycin 2,000 mg In 334 Sodium Chloride 0.9% 500 ml 500 ml @ 167 mls/hr IVPB [facility] Rx#: [id number] Vasopressin 60 unit In 121.89 Sodium Chloride 0.9% 150 ml @ 0.04 UNITS/MIN 6.12 mls/hr IV .Q24H [facility] Rx#: [id number] Oral 150 Blood Product 620 Rc As-1 Unit 310 [id number] Other 50 Rc As-1 Unit 50 [id number] Output: Gastric Drainage 450 Urine 560 55 9 Stool 800 200 Other: Voiding Method Indwelling Catheter Indwelling Catheter ABP, PAP, CO, CI - Last Documented Arterial Blood Pressure 103/47 - Labs CBC & Chem 7: 08/20/22 05:43 08/20/22 05:43 Labs: Abnormal Lab Results - Last 24 Hours (Table) 08/19/22 08/19/22 08/19/22 Range/Units 05:10 12:05 12:33 WBC (3.8-10.6) k/uL RBC (3.80-5.40) m/uL Hgb (11.4-16.0) gm/dL Hct (34.0-46.0) % MCHC (31.0-37.0) g/dL RDW (11.5-15.5) % ABG pH (7.35-7.45) ABG pO2 (83-108) mmHg ABG HCO3 (21-25) mmol/L ABG Total CO2 (19-24) mmol/L ABG O2 Saturation (94-97) % Chloride (98-107) mmol/L Carbon Dioxide (22-30) mmol/L BUN (7-17) mg/dL Creatinine (0.52-1.04) mg/dL Glucose (74-99) mg/dL POC Glucose (mg/dL) 211 H (70-110) mg/dL Calcium (8.4-10.2) mg/dL AST (14-36) U/L Alkaline Phosphatase (38-126) U/L C-Reactive Protein 36.1 H (<1.0) mg/dL Total Protein (6.3-8.2) g/dL Albumin (3.5-5.0) g/dL Crossmatch See Detail 08/19/22 08/19/22 08/20/22 Range/Units 17:58 23:46 05:40 WBC (3.8-10.6) k/uL RBC (3.80-5.40) m/uL Hgb (11.4-16.0) gm/dL Hct (34.0-46.0) % MCHC (31.0-37.0) g/dL RDW (11.5-15.5) % ABG pH 7.20 L (7.35-7.45) ABG pO2 76 L (83-108) mmHg ABG HCO3 17 L (21-25) mmol/L ABG Total CO2 18 L (19-24) mmol/L ABG O2 Saturation 92.4 L (94-97) % Chloride (98-107) mmol/L Carbon Dioxide (22-30) mmol/L BUN (7-17) mg/dL Creatinine (0.52-1.04) mg/dL Glucose (74-99) mg/dL POC Glucose (mg/dL) 193 H 260 H (70-110) mg/dL Calcium (8.4-10.2) mg/dL AST (14-36) U/L Alkaline Phosphatase (38-126) U/L C-Reactive Protein (<1.0) mg/dL Total Protein (6.3-8.2) g/dL Albumin (3.5-5.0) g/dL Crossmatch 08/20/22 08/20/22 08/20/22 Range/Units 05:43 05:43 05:44 WBC 26.6 H (3.8-10.6) k/uL RBC 3.23 L (3.80-5.40) m/uL Hgb 8.7 L D (11.4-16.0) gm/dL Hct 29.8 L (34.0-46.0) % MCHC 29.2 L (31.0-37.0) g/dL RDW 17.2 H (11.5-15.5) % ABG pH (7.35-7.45) ABG pO2 (83-108) mmHg ABG HCO3 (21-25) mmol/L ABG Total CO2 (19-24) mmol/L ABG O2 Saturation (94-97) % Chloride 118 H (98-107) mmol/L Carbon Dioxide 17 L (22-30) mmol/L BUN 67 H (7-17) mg/dL Creatinine 1.44 H (0.52-1.04) mg/dL Glucose 253 H (74-99) mg/dL POC Glucose (mg/dL) 290 H (70-110) mg/dL Calcium 6.7 L (8.4-10.2) mg/dL AST 38 H (14-36) U/L Alkaline Phosphatase 205 H (38-126) U/L C-Reactive Protein (<1.0) mg/dL Total Protein 3.9 L (6.3-8.2) g/dL Albumin 1.4 L (3.5-5.0) g/dL Crossmatch Microbiology - Last 24 Hours (Table) 08/19/22 21:07 Sputum Culture - Preliminary Sputum 08/19/22 18:00 Stool Culture - Preliminary Stool 08/14/22 15:00 Blood Culture - Preliminary Blood No Growth after 120 hours
--- NOTE | 2022-08-20 11:23 | P.CNNES ---
History of Present Illness Consult date: 08/20/22 Requesting physician: Дмитрий Montoya Reason for Consult: off sedation >48 hour not waking up History of Present Illness: This is an 87-year-old woman with history of TIA/stroke, atrial fibrillation on eliquis, congestive heart failure, diabetes, hypertension, hyperlipidemia, obstructive sleep apnea on BiPAP presented emergency department because shortness of breath as well as syncopal episode. Neurology is consulted for altered mentation even though the patient has been off sedation for the last about 3 days and some of the history is obtained from medical record as well as the patient's nurse. It seems that the patient presented because of shortness of breath and had a syncopal episode while the toilet. She was noted to be hypoxemic and the there is evidence of wheezing crackles in the long. During his hospital visit was felt that the patient was in septic shock requiring pressor support and has snapping of leukocytosis and continues to have fever. She has systemic Tato with positive culture with tato. Patient also has a urinary tract infection and euro urine culture was positive for Enterococcus faecalis and Pseudomonas aeruginosa. According to the nurse patient pressure support the head to be elevated recently but no seizure-like activity was noted. She has age are fibrillation and the she is currently placed on eliquis. During his hospital visit the patient was intubated on a ventilator. Also her kidney functions is elevated and was trending down but slightly elevated compared to yesterday area was as high as 2.74 during this hospital state but currently it's 1.44. I spoke with the patient's son who stated the patient is alert, oriented X3 at baseline. Has some to rare confusions. Uses a scooter for ambulation. Is taking care of her own bills at baseline. Some of the workup during his hospital visit consisted of: Patient continues to be febrile and the T-max is 103 yesterday at midnight. Patient's white blood cell is trending up on presentation was 14.3 thousand and currently is 26.6K calcium 6.7 ionized calcium is 4.9 Her sugars has been in the range of 200s. Sodium is 141 AST is 38 ALTs 12 TSH is 1.14 SARS COV-2 PCR was not detected RSV/influenza A/B is not detected As stated the urine culture was positive for Pseudomonas and enterococcus. Patient has Tato albicans in the blood culture and the sputum Timmy gram stain culture Review of Systems Review of system is limited with apparent positive and negative as per HPI Past Medical History Past Medical History: Coronary Artery Disease (CAD), Chest Pain / Angina, Heart Failure, COPD, CVA/TIA, Diabetes Mellitus, Hyperlipidemia, Hypertension, Myocardial Infarction (MS), Osteoarthritis (OA), Renal Disease, Sleep Apnea/CPAP/BIPAP, Thyroid Disorder Additional Past Medical History / Comment(s): Pt recently admitted to [facility] on 05/21/22/ gravely disabled, UTI, acquired hypothyroidism, exacerbation copd and chf, anemia. Other hx: IDDM type II, neuropathy bilateral hands/feet, CKD stage III, urinary retention, UTIs, anemia, home oxygen use ATC, bilateral lower extremity edema, current pressure ulcer decub per pt, gastritis, hiatal hernia, aortic stenosis, hemorrhoids. Last Myocardial Infarction Date:: 06/18/17 History of Any Multi-Drug Resistant Organisms: ESBL, Other MDRO Date of last positivie culture/infection: 09/06/17 MDRO Source:: ESBL URINE Past Surgical History: Back Surgery, Heart Catheterization, Heart Catheterization With Stent, Joint Replacement, Orthopedic Surgery Additional Past Surgical History / Comment(s): Lumbar laminectomy decompression fusion L3-4 and L5-S1 with cell saver, lumbar instrumentation removal L4-5, L4- L5 laminectomy, BILATERAL KNEE REPLACEMENTS, ORIF RIGHT ANKLE, CERVICAL FUSION, bilateral rotator cuff repair, bilateral wrist carpal tunnel releases, pain procedures, left breast lumpectomy-benign, bilateral varicose vein stripping, bilateral cataracts, heart cath with 5 stents august 2021, egd/colonoscopy 04/13/22 Past Anesthesia/Blood Transfusion Reactions: No Reported Reaction Additional Past Anesthesia/Blood Transfusion Reaction / Comment(s): blood transfusion 04/01/[address] estrella's notes last hospital stay Date of Last Stent Placement:: 08/30/2021 Past Psychological History: No Psychological Hx Reported Smoking Status: Former smoker - Past Family History Father Family Medical History: Myocardial Infarction (MS) Additional Family Medical History / Comment(s): Father at 40 of a MS. Mother Family Medical History: CVA/TIA Additional Family Medical History / Comment(s): Mother had a CVA Medications and Allergies Home Medications Medication Instructions Recorded Confirmed Type Nitroglycerin Sl Tabs [Nitrostat] 0.4 mg SL Q5M PRN 07/20/15 08/08/22 History Atorvastatin Calcium [Lipitor] 40 mg PO HS #1 tab 08/04/15 08/08/22 Rx Fluticasone/Umeclidin/Vilanter 1 puff INHALATION RT-HS 10/15/21 08/08/22 History [Trelegy Ellipta 100-62.5-25] Apixaban [Eliquis] 2.5 mg PO BID 12/09/21 08/08/22 History Amitriptyline HCl [Elavil] 100 mg PO HS 03/13/22 08/08/22 History Cyanocobalamin (Vitamin B-12) 1,000 mcg PO DAILY 03/13/22 08/08/22 History [Vitamin B-12] Gabapentin 300 mg PO TID #9 cap 04/04/22 08/08/22 Rx Furosemide [Lasix] 40 mg PO DAILY tab 04/13/22 08/08/22 Rx Amiodarone [Cordarone] 200 mg PO DAILY #90 tab 04/14/22 08/08/22 Rx Metoprolol Tartrate [Lopressor] 25 mg PO BID tab 04/14/22 08/08/22 Rx HYDROcodone/APAP 5-325MG [[place] 1 tab PO Q6H PRN 05/21/22 08/08/22 History 5-325] Insulin Lispro [humaLOG Kwikpen] See Protocol SQ ACHS PRN 05/21/22 08/08/22 History Calcium Carbonate [Tums] 1,000 mg PO Q6H PRN 08/08/22 08/08/22 History Docusate [Colace] 100 mg PO BID 08/08/22 08/08/22 History Ipratropium-Albuterol Nebulize 3 ml INHALATION RT-QID 08/08/22 08/08/22 History [Duoneb 0.5 mg-3 mg/3 ml Soln] Levothyroxine Sodium [Synthroid] 75 mcg PO DAILY 08/08/22 08/08/22 History Psyllium Husk 100% [Metamucil 6 gm PO DAILY 08/08/22 08/08/22 History Packet] Tamsulosin [Flomax] 0.4 mg PO DAILY 08/08/22 08/08/22 History metFORMIN HCL 1,000 mg PO BID 08/08/22 08/08/22 History Allergies Allergy/AdvReac Type Severity Reaction Status Date / Time Penicillins Allergy Rash/Hives Verified 08/08/22 17:14 Physical Examination - Vital Signs Vital Signs: Vital Signs Temp Pulse Resp BP Pulse Ox FiO2 08/20/22 09:00 128 H 28 H 95 40 08/20/22 08:34 125 H 08/20/22 08:19 126 H 08/20/22 08:09 123 H 08/20/22 08:00 100.3 F H 124 H 30 H 95 40 08/20/22 07:40 40 08/20/22 07:00 130 H 38 H 95 08/20/22 06:00 126 H 59 H 95 08/20/22 05:00 124 H 19 93 L 08/20/22 04:33 121 H 08/20/22 04:11 135 H 40 08/20/22 04:00 100.9 F H 133 H 29 H 94 L 40 08/20/22 03:00 131 H 31 H 95 08/20/22 02:00 128 H 30 H 94 L 08/20/22 01:00 124 H 24 08/20/22 00:03 134 H 08/20/22 00:00 103 F H 146 H 31 H 95 40 08/19/22 23:53 40 08/19/22 23:52 142 H 08/19/22 23:00 144 H 24 94 L 08/19/22 22:00 125 H 30 H 95 08/19/22 21:00 147 H 30 H 99 40 08/19/22 20:11 137 H 08/19/22 20:00 102.5 F H 140 H 24 93 L 40 08/19/22 19:53 141 H 08/19/22 19:52 141 H 08/19/22 19:41 40 08/19/22 19:39 141 H 08/19/22 19:00 158 H 31 H 40 08/19/22 18:00 141 H 42 H 93 L 40 08/19/22 17:00 135 H 29 H 94 L 40 08/19/22 16:39 101.6 F H 156 H 28 H 99/52 94 L 08/19/22 16:00 101.4 F H 133 H 31 H 92 L 40 08/19/22 15:31 132 H 08/19/22 15:21 101.6 F H 130 H 28 H 87/49 94 L 08/19/22 15:01 100.1 F H 142 H 28 H 96/46 94 L 40 08/19/22 15:00 101.6 F H 151 H 41 H 93 L 40 08/19/22 14:00 163 H 25 H 40 08/19/22 13:00 140 H 30 H 94 L 40 08/19/22 12:00 101.4 F H 144 H 28 H 92 L 40 08/19/22 11:43 130 H 08/19/22 11:30 128 H 08/19/22 11:22 40 08/19/22 11:00 126 H 23 94 L 40 08/19/22 10:00 100.7 F H 131 H 28 H 95 40 08/19/22 09:49 129 H 28 H 95 Intake and Output 08/19/22 08/20/22 08/20/22 22:59 06:59 14:59 Intake Total 2741.232 4092.3503 114 Output Total 755 240 4 Balance 5612.610 2713.3503 110 Intake: IV 388 2728 114 0.9% @ KVO 160 160 40 Potassium Acetate 20 meq 204 544 68 Calcium Gluconate 1 gm Magnesium Sulfate gm 0.5 gm Potassium Phosphate 10 mmol In Amino Acid 5%- D15w 1,000 ml @ 68 mls/hr IV .BY DURATION COUNTS INCLUDE 234 BEDS AT THE [facility] Rx#: [id number] Pressure Bag 24 24 6 Sodium Chloride 0.9% 2, 2000 000 ml @ 999 mls/hr IV . Q2H1M [facility] Rx#:[id number] Intake, IV Titration 1798.838 0468.3503 Amount Amiodarone 450 mg In 250 233.331 Dextrose 5% in Water 250 ml @ 1 MG/MIN 33.333 mls/ hr IV .Q7H30M COUNTS INCLUDE 234 BEDS AT THE [facility] Rx#: [id number] Norepinephrine 32 mg In 93.232 106.686 Sodium Chloride 0.9% 218 ml @ 0.5 MCG/KG/MIN 25. 547 mls/hr IV .Q9H48M COUNTS INCLUDE 234 BEDS AT THE [facility] Rx#:[id number] Potassium Acetate 20 meq 340 1024.3333 Calcium Gluconate 1 gm Magnesium Sulfate gm 0.5 gm Potassium Phosphate 10 mmol In Amino Acid 5%- D15w 1,000 ml @ 68 mls/hr IV .BY DURATION [facility] Rx#: [id number] Sodium Chloride 0.9% 1, 1000 000 ml @ 999 mls/hr IV . Q1H1M [facility] Rx#:[id number] Blood Product 620 Rc As-1 Unit 310 [id number] Other 50 Rc As-1 Unit 50 [id number] Output: Gastric Drainage 100 Urine 55 40 4 Stool 600 200 Other: Voiding Method Indwelling Catheter Indwelling Catheter Weight 128 kg ABP, PAP, CO, CI - Last 8 Hours Arterial Blood Pressure 104/45 Arterial Blood Pressure 102/45 Arterial Blood Pressure 107/47 Arterial Blood Pressure 97/47 Arterial Blood Pressure 86/33 Arterial Blood Pressure 89/48 Arterial Blood Pressure 89/48 Arterial Blood Pressure 95/48 GENERAL: The patient is a morbid obese woman, lying in bed and does not appear in acute distress. CHEST: The heart rate is regular rate rhythm. No edema in lowers LUNG: Clear to auscultation bilaterally no wheezing noted throughout. Not labored breathing. Intubated on ventilator. ABDOMEN/GI: Bowel sounds present in all 4 quadrants. No tenderness to palpation throughout. NEUROLOGICAL: Limited because of her condition. Higher mental function: The patient is comatose GCS 3 (E1, VT1, M1). Not following commands or attempting to verbalize. Cranial nerves: I had to manually open her eyes. Primary gaze is midline. The pupils are round, equal (2-3mm) and reactive to light. No facial weakness. Is breathing over vent. Has ?very weak cough. Motor: The strength is unable to assess because of condition. No spontaneous movement. Cerebellum: Unable to assess. Sensation: Unable to assess light touch. Reflexes (right/left): Unable to assess because of her morbid obesity. Plantars are mute bilaterally. Results - Laboratory Findings CBC and BMP: 08/20/22 05:43 08/20/22 05:43 Abnormal Lab Findings: Abnormal Labs 08/08/22 08/08/22 08/08/22 13:00 13:00 13:00 WBC 14.3 H RBC Hgb 10.2 L Hct 33.4 L MCHC 30.7 L RDW 15.8 H Neutrophils # 8.8 H Neutrophils # (Manual) Lymphocytes # Lymphocytes # (Manual) Metamyelocytes # (Man) Nucleated RBCs INR D-Dimer 4.73 H ABG pH ABG pCO2 ABG pO2 ABG HCO3 ABG Total CO2 ABG O2 Saturation ABG Lactic Acid Sodium Potassium Chloride Carbon Dioxide BUN 40 H Creatinine 1.50 H Glucose 131 H POC Glucose (mg/dL) Plasma Lactic Acid Russel Calcium 8.2 L Ionized Calcium [place] Phosphorus Magnesium 2.7 H AST Alkaline Phosphatase C-Reactive Protein Total Protein Albumin Triglycerides Vitamin D 25-Hydroxy Procalcitonin Urine Appearance Urine Protein Urine Blood Ur Leukocyte Esterase Urine WBC Urine WBC Clumps Urine Bacteria Hyaline Casts Urine Mucus Crossmatch 08/08/22 08/08/22 08/08/22 13:00 13:02 13:10 WBC RBC Hgb Hct MCHC RDW Neutrophils # Neutrophils # (Manual) Lymphocytes # Lymphocytes # (Manual) Metamyelocytes # (Man) Nucleated RBCs INR D-Dimer ABG pH ABG pCO2 ABG pO2 ABG HCO3 ABG Total CO2 ABG O2 Saturation ABG Lactic Acid Sodium Potassium Chloride Carbon Dioxide BUN Creatinine Glucose POC Glucose (mg/dL) 148 H Plasma Lactic Acid Russel 3.8 H* Calcium Ionized Calcium [place] Phosphorus Magnesium AST Alkaline Phosphatase C-Reactive Protein Total Protein Albumin Triglycerides Vitamin D 25-Hydroxy Procalcitonin Urine Appearance Cloudy H Urine Protein 1+ H Urine Blood Ur Leukocyte Esterase Large H Urine WBC 165 H Urine WBC Clumps Many H Urine Bacteria Rare H Hyaline Casts 4 H Urine Mucus Crossmatch 08/08/22 08/08/22 08/09/22 19:48 23:02 03:27 WBC RBC Hgb Hct MCHC RDW Neutrophils # Neutrophils # (Manual) Lymphocytes # Lymphocytes # (Manual) Metamyelocytes # (Man) Nucleated RBCs INR D-Dimer ABG pH ABG pCO2 ABG pO2 ABG HCO3 ABG Total CO2 ABG O2 Saturation ABG Lactic Acid Sodium Potassium Chloride Carbon Dioxide BUN Creatinine Glucose POC Glucose (mg/dL) Plasma Lactic Acid Russel 2.1 H* 3.5 H* 2.6 H* Calcium Ionized Calcium [place] Phosphorus Magnesium AST Alkaline Phosphatase C-Reactive Protein Total Protein Albumin Triglycerides Vitamin D 25-Hydroxy Procalcitonin Urine Appearance Urine Protein Urine Blood Ur Leukocyte Esterase Urine WBC Urine WBC Clumps Urine Bacteria Hyaline Casts Urine Mucus Crossmatch 08/09/22 08/09/22 08/09/22 04:24 08:03 10:53 WBC 19.1 H RBC 3.01 L Hgb 8.0 L D Hct 26.7 L MCHC 29.9 L RDW 15.8 H Neutrophils # Neutrophils # (Manual) Lymphocytes # Lymphocytes # (Manual) Metamyelocytes # (Man) Nucleated RBCs INR D-Dimer ABG pH ABG pCO2 ABG pO2 ABG HCO3 ABG Total CO2 ABG O2 Saturation ABG Lactic Acid Sodium Potassium Chloride Carbon Dioxide BUN Creatinine Glucose POC Glucose (mg/dL) 143 H Plasma Lactic Acid Russel 2.5 H* Calcium Ionized Calcium [place] Phosphorus Magnesium AST Alkaline Phosphatase C-Reactive Protein Total Protein Albumin Triglycerides Vitamin D 25-Hydroxy Procalcitonin Urine Appearance Urine Protein Urine Blood Ur Leukocyte Esterase Urine WBC Urine WBC Clumps Urine Bacteria Hyaline Casts Urine Mucus Crossmatch 08/09/22 08/09/22 08/09/22 10:53 10:53 10:53 WBC RBC Hgb Hct MCHC RDW Neutrophils # Neutrophils # (Manual) Lymphocytes # Lymphocytes # (Manual) Metamyelocytes # (Man) Nucleated RBCs INR D-Dimer ABG pH ABG pCO2 ABG pO2 ABG HCO3 ABG Total CO2 ABG O2 Saturation ABG Lactic Acid Sodium 136 L Potassium Chloride Carbon Dioxide 17 L BUN 66 H Creatinine 2.27 H Glucose 145 H POC Glucose (mg/dL) Plasma Lactic Acid Russel 2.3 H* Calcium 7.0 L Ionized Calcium [place] Phosphorus Magnesium 2.6 H AST Alkaline Phosphatase C-Reactive Protein Total Protein Albumin Triglycerides Vitamin D 25-Hydroxy Procalcitonin 11.00 H Urine Appearance Urine Protein Urine Blood Ur Leukocyte Esterase Urine WBC Urine WBC Clumps Urine Bacteria Hyaline Casts Urine Mucus Crossmatch 08/09/22 08/09/22 08/09/22 11:51 14:10 17:39 WBC RBC Hgb Hct MCHC RDW Neutrophils # Neutrophils # (Manual) Lymphocytes # Lymphocytes # (Manual) Metamyelocytes # (Man) Nucleated RBCs INR D-Dimer ABG pH ABG pCO2 ABG pO2 ABG HCO3 ABG Total CO2 ABG O2 Saturation ABG Lactic Acid Sodium Potassium Chloride Carbon Dioxide BUN Creatinine Glucose POC Glucose (mg/dL) 185 H Plasma Lactic Acid Russel 2.5 H* 2.6 H* Calcium Ionized Calcium [place] Phosphorus Magnesium AST Alkaline Phosphatase C-Reactive Protein Total Protein Albumin Triglycerides Vitamin D 25-Hydroxy Procalcitonin Urine Appearance Urine Protein Urine Blood Ur Leukocyte Esterase Urine WBC Urine WBC Clumps Urine Bacteria Hyaline Casts Urine Mucus Crossmatch 02/08/23 02/08/23 02/09/23 17:56 21:53 00:15 WBC RBC Hgb Hct MCHC RDW Neutrophils # Neutrophils # (Manual) Lymphocytes # Lymphocytes # (Manual) Metamyelocytes # (Man) Nucleated RBCs INR D-Dimer ABG pH ABG pCO2 ABG pO2 ABG HCO3 ABG Total CO2 ABG O2 Saturation ABG Lactic Acid Sodium Potassium Chloride Carbon Dioxide BUN Creatinine Glucose POC Glucose (mg/dL) 196 H 142 H Plasma Lactic Acid Russel 2.9 H* Calcium Ionized Calcium [place] Phosphorus Magnesium AST Alkaline Phosphatase C-Reactive Protein Total Protein Albumin Triglycerides Vitamin D 25-Hydroxy Procalcitonin Urine Appearance Urine Protein Urine Blood Ur Leukocyte Esterase Urine WBC Urine WBC Clumps Urine Bacteria Hyaline Casts Urine Mucus Crossmatch 08/10/22 08/10/22 08/10/22 00:55 01:10 02:31 WBC RBC Hgb Hct MCHC RDW Neutrophils # Neutrophils # (Manual) Lymphocytes # Lymphocytes # (Manual) Metamyelocytes # (Man) Nucleated RBCs INR D-Dimer ABG pH 7.28 L ABG pCO2 31 L ABG pO2 136 H ABG HCO3 15 L ABG Total CO2 16 L ABG O2 Saturation 99.1 H ABG Lactic Acid Sodium Potassium Chloride Carbon Dioxide BUN Creatinine Glucose POC Glucose (mg/dL) 141 H Plasma Lactic Acid Russel 3.2 H* Calcium Ionized Calcium [place] Phosphorus Magnesium AST Alkaline Phosphatase C-Reactive Protein Total Protein Albumin Triglycerides Vitamin D 25-Hydroxy Procalcitonin Urine Appearance Urine Protein Urine Blood Ur Leukocyte Esterase Urine WBC Urine WBC Clumps Urine Bacteria Hyaline Casts Urine Mucus Crossmatch 08/10/22 08/10/22 08/10/22 05:47 05:50 05:50 WBC RBC 3.07 L Hgb 8.2 L Hct 27.5 L MCHC 29.8 L RDW 15.7 H Neutrophils # Neutrophils # (Manual) Lymphocytes # Lymphocytes # (Manual) 0.78 L Metamyelocytes # (Man) 0.26 H Nucleated RBCs INR D-Dimer ABG pH ABG pCO2 ABG pO2 ABG HCO3 ABG Total CO2 ABG O2 Saturation ABG Lactic Acid Sodium 134 L Potassium 6.3 H* Chloride 110 H Carbon Dioxide 13 L BUN 81 H Creatinine 2.68 H Glucose 134 H POC Glucose (mg/dL) 139 H Plasma Lactic Acid Russel Calcium 6.9 L Ionized Calcium [place] Phosphorus Magnesium AST Alkaline Phosphatase C-Reactive Protein Total Protein Albumin Triglycerides Vitamin D 25-Hydroxy Procalcitonin Urine Appearance Urine Protein Urine Blood Ur Leukocyte Esterase Urine WBC Urine WBC Clumps Urine Bacteria Hyaline Casts Urine Mucus Crossmatch 08/10/22 08/10/22 08/10/22 05:50 05:50 08:05 WBC RBC Hgb Hct MCHC RDW Neutrophils # Neutrophils # (Manual) Lymphocytes # Lymphocytes # (Manual) Metamyelocytes # (Man) Nucleated RBCs INR D-Dimer ABG pH ABG pCO2 ABG pO2 ABG HCO3 ABG Total CO2 ABG O2 Saturation ABG Lactic Acid Sodium Potassium Chloride Carbon Dioxide BUN Creatinine Glucose POC Glucose (mg/dL) 164 H Plasma Lactic Acid Russel 2.1 H* Calcium Ionized Calcium [place] Phosphorus Magnesium 3.0 H AST Alkaline Phosphatase C-Reactive Protein Total Protein Albumin Triglycerides Vitamin D 25-Hydroxy Procalcitonin Urine Appearance Urine Protein Urine Blood Ur Leukocyte Esterase Urine WBC Urine WBC Clumps Urine Bacteria Hyaline Casts Urine Mucus Crossmatch 08/10/22 08/10/22 08/10/22 11:30 11:30 11:37 WBC RBC Hgb Hct MCHC RDW Neutrophils # Neutrophils # (Manual) Lymphocytes # Lymphocytes # (Manual) Metamyelocytes # (Man) Nucleated RBCs INR D-Dimer ABG pH 7.20 L ABG pCO2 48 H ABG pO2 295 H ABG HCO3 19 L ABG Total CO2 ABG O2 Saturation 99.9 H ABG Lactic Acid Sodium Potassium 5.3 H Chloride Carbon Dioxide BUN Creatinine Glucose POC Glucose (mg/dL) Plasma Lactic Acid Russel 3.2 H* Calcium Ionized Calcium [place] Phosphorus Magnesium AST Alkaline Phosphatase C-Reactive Protein Total Protein Albumin Triglycerides Vitamin D 25-Hydroxy Procalcitonin Urine Appearance Urine Protein Urine Blood Ur Leukocyte Esterase Urine WBC Urine WBC Clumps Urine Bacteria Hyaline Casts Urine Mucus Crossmatch 08/10/22 08/10/22 08/10/22 11:56 13:56 14:09 WBC RBC Hgb Hct MCHC RDW Neutrophils # Neutrophils # (Manual) Lymphocytes # Lymphocytes # (Manual) Metamyelocytes # (Man) Nucleated RBCs INR D-Dimer ABG pH 7.20 L ABG pCO2 48 H ABG pO2 219 H ABG HCO3 19 L ABG Total CO2 ABG O2 Saturation 98.3 H ABG Lactic Acid Sodium Potassium Chloride Carbon Dioxide BUN Creatinine Glucose POC Glucose (mg/dL) 162 H Plasma Lactic Acid Russel 2.3 H* Calcium Ionized Calcium [place] Phosphorus Magnesium AST Alkaline Phosphatase C-Reactive Protein Total Protein Albumin Triglycerides Vitamin D 25-Hydroxy Procalcitonin Urine Appearance Urine Protein Urine Blood Ur Leukocyte Esterase Urine WBC Urine WBC Clumps Urine Bacteria Hyaline Casts Urine Mucus Crossmatch 08/10/22 08/10/22 08/10/22 17:00 18:13 18:21 WBC RBC Hgb Hct MCHC RDW Neutrophils # Neutrophils # (Manual) Lymphocytes # Lymphocytes # (Manual) Metamyelocytes # (Man) Nucleated RBCs INR D-Dimer ABG pH ABG pCO2 ABG pO2 ABG HCO3 ABG Total CO2 ABG O2 Saturation ABG Lactic Acid Sodium Potassium 5.5 H Chloride 109 H Carbon Dioxide 20 L BUN 81 H Creatinine 2.74 H Glucose 203 H POC Glucose (mg/dL) 393 H Plasma Lactic Acid Russel 3.3 H* Calcium 6.5 L Ionized Calcium [place] Phosphorus Magnesium AST Alkaline Phosphatase C-Reactive Protein Total Protein Albumin Triglycerides Vitamin D 25-Hydroxy Procalcitonin Urine Appearance Urine Protein Urine Blood Ur Leukocyte Esterase Urine WBC Urine WBC Clumps Urine Bacteria Hyaline Casts Urine Mucus Crossmatch 08/10/22 08/11/22 08/11/22 21:08 00:45 00:55 WBC RBC Hgb Hct MCHC RDW Neutrophils # Neutrophils # (Manual) Lymphocytes # Lymphocytes # (Manual) Metamyelocytes # (Man) Nucleated RBCs INR D-Dimer ABG pH ABG pCO2 ABG pO2 ABG HCO3 ABG Total CO2 ABG O2 Saturation ABG Lactic Acid Sodium Potassium Chloride Carbon Dioxide BUN Creatinine Glucose POC Glucose (mg/dL) 234 H Plasma Lactic Acid Russel 2.9 H* 2.5 H* Calcium Ionized Calcium [place] Phosphorus Magnesium AST Alkaline Phosphatase C-Reactive Protein Total Protein Albumin Triglycerides Vitamin D 25-Hydroxy Procalcitonin Urine Appearance Urine Protein Urine Blood Ur Leukocyte Esterase Urine WBC Urine WBC Clumps Urine Bacteria Hyaline Casts Urine Mucus Crossmatch 08/11/22 08/11/22 08/11/22 05:34 05:37 05:37 WBC 12.2 H RBC 3.25 L Hgb 8.6 L Hct 28.4 L MCHC 30.2 L RDW 16.0 H Neutrophils # Neutrophils # (Manual) 8.50 H Lymphocytes # Lymphocytes # (Manual) Metamyelocytes # (Man) 0.49 H Nucleated RBCs 1 H INR D-Dimer ABG pH ABG pCO2 ABG pO2 ABG HCO3 ABG Total CO2 ABG O2 Saturation ABG Lactic Acid Sodium Potassium Chloride 109 H Carbon Dioxide BUN 79 H Creatinine 2.74 H Glucose 221 H POC Glucose (mg/dL) 255 H Plasma Lactic Acid Russel Calcium 5.8 L* Ionized Calcium [place] Phosphorus Magnesium AST Alkaline Phosphatase C-Reactive Protein Total Protein Albumin Triglycerides Vitamin D 25-Hydroxy Procalcitonin Urine Appearance Urine Protein Urine Blood Ur Leukocyte Esterase Urine WBC Urine WBC Clumps Urine Bacteria Hyaline Casts Urine Mucus Crossmatch 08/11/22 08/11/22 08/11/22 05:37 05:48 11:30 WBC RBC Hgb Hct MCHC RDW Neutrophils # Neutrophils # (Manual) Lymphocytes # Lymphocytes # (Manual) Metamyelocytes # (Man) Nucleated RBCs INR D-Dimer ABG pH 7.30 L ABG pCO2 ABG pO2 ABG HCO3 ABG Total CO2 ABG O2 Saturation ABG Lactic Acid Sodium Potassium Chloride Carbon Dioxide BUN Creatinine Glucose POC Glucose (mg/dL) 263 H Plasma Lactic Acid Russel 3.2 H* Calcium Ionized Calcium [place] Phosphorus Magnesium AST Alkaline Phosphatase C-Reactive Protein Total Protein Albumin Triglycerides Vitamin D 25-Hydroxy Procalcitonin Urine Appearance Urine Protein Urine Blood Ur Leukocyte Esterase Urine WBC Urine WBC Clumps Urine Bacteria Hyaline Casts Urine Mucus Crossmatch 08/11/22 08/11/22 08/11/22 11:32 16:05 16:05 WBC RBC Hgb Hct MCHC RDW Neutrophils # Neutrophils # (Manual) Lymphocytes # Lymphocytes # (Manual) Metamyelocytes # (Man) Nucleated RBCs INR D-Dimer ABG pH ABG pCO2 ABG pO2 ABG HCO3 ABG Total CO2 ABG O2 Saturation ABG Lactic Acid Sodium Potassium Chloride Carbon Dioxide BUN 81 H Creatinine 2.77 H Glucose 199 H POC Glucose (mg/dL) Plasma Lactic Acid Russel 2.6 H* 3.3 H* Calcium 5.8 L* Ionized Calcium [place] Phosphorus Magnesium AST Alkaline Phosphatase C-Reactive Protein Total Protein Albumin Triglycerides Vitamin D 25-Hydroxy Procalcitonin Urine Appearance Urine Protein Urine Blood Ur Leukocyte Esterase Urine WBC Urine WBC Clumps Urine Bacteria Hyaline Casts Urine Mucus Crossmatch 08/11/22 08/11/22 08/11/22 18:00 18:03 23:02 WBC RBC Hgb Hct MCHC RDW Neutrophils # Neutrophils # (Manual) Lymphocytes # Lymphocytes # (Manual) Metamyelocytes # (Man) Nucleated RBCs INR D-Dimer ABG pH ABG pCO2 ABG pO2 ABG HCO3 ABG Total CO2 ABG O2 Saturation ABG Lactic Acid 3.5 H* Sodium Potassium Chloride Carbon Dioxide BUN Creatinine Glucose POC Glucose (mg/dL) 216 H Plasma Lactic Acid Russel Calcium Ionized Calcium [place] 3.7 L Phosphorus Magnesium AST Alkaline Phosphatase C-Reactive Protein Total Protein Albumin 1.9 L Triglycerides Vitamin D 25-Hydroxy Procalcitonin Urine Appearance Urine Protein Urine Blood Ur Leukocyte Esterase Urine WBC Urine WBC Clumps Urine Bacteria Hyaline Casts Urine Mucus Crossmatch 08/11/22 08/12/22 08/12/22 23:07 04:08 04:08 WBC RBC 3.07 L Hgb 8.4 L Hct 26.3 L MCHC RDW 16.3 H Neutrophils # Neutrophils # (Manual) Lymphocytes # Lymphocytes # (Manual) Metamyelocytes # (Man) 0.14 H Nucleated RBCs INR D-Dimer ABG pH ABG pCO2 ABG pO2 ABG HCO3 ABG Total CO2 ABG O2 Saturation ABG Lactic Acid Sodium Potassium Chloride 110 H Carbon Dioxide BUN 81 H Creatinine 2.72 H Glucose 162 H POC Glucose (mg/dL) 138 H Plasma Lactic Acid Russel Calcium 6.0 L* Ionized Calcium [place] Phosphorus Magnesium AST 166 H Alkaline Phosphatase 385 H C-Reactive Protein Total Protein 4.0 L Albumin 1.8 L Triglycerides Vitamin D 25-Hydroxy Procalcitonin Urine Appearance Urine Protein Urine Blood Ur Leukocyte Esterase Urine WBC Urine WBC Clumps Urine Bacteria Hyaline Casts Urine Mucus Crossmatch 08/12/22 08/12/22 08/12/22 04:08 04:08 05:42 WBC RBC Hgb Hct MCHC RDW Neutrophils # Neutrophils # (Manual) Lymphocytes # Lymphocytes # (Manual) Metamyelocytes # (Man) Nucleated RBCs INR D-Dimer ABG pH ABG pCO2 ABG pO2 115 H ABG HCO3 ABG Total CO2 ABG O2 Saturation 98.5 H ABG Lactic Acid 2.4 H* Sodium Potassium Chloride Carbon Dioxide BUN Creatinine Glucose POC Glucose (mg/dL) Plasma Lactic Acid Russel Calcium Ionized Calcium [place] Phosphorus Magnesium 2.6 H AST Alkaline Phosphatase C-Reactive Protein Total Protein Albumin Triglycerides Vitamin D 25-Hydroxy Procalcitonin Urine Appearance Urine Protein Urine Blood Ur Leukocyte Esterase Urine WBC Urine WBC Clumps Urine Bacteria Hyaline Casts Urine Mucus Crossmatch 08/12/22 08/12/22 08/12/22 05:43 11:28 15:00 WBC RBC 2.91 L Hgb 8.0 L Hct 24.9 L MCHC RDW 16.2 H Neutrophils # Neutrophils # (Manual) Lymphocytes # 0.9 L Lymphocytes # (Manual) Metamyelocytes # (Man) Nucleated RBCs INR D-Dimer ABG pH ABG pCO2 ABG pO2 ABG HCO3 ABG Total CO2 ABG O2 Saturation ABG Lactic Acid Sodium Potassium Chloride Carbon Dioxide BUN Creatinine Glucose POC Glucose (mg/dL) 148 H 138 H Plasma Lactic Acid Russel Calcium Ionized Calcium [place] Phosphorus Magnesium AST Alkaline Phosphatase C-Reactive Protein Total Protein Albumin Triglycerides Vitamin D 25-Hydroxy Procalcitonin Urine Appearance Urine Protein Urine Blood Ur Leukocyte Esterase Urine WBC Urine WBC Clumps Urine Bacteria Hyaline Casts Urine Mucus Crossmatch 08/12/22 08/13/22 08/13/22 15:00 04:32 04:32 WBC RBC 3.07 L Hgb 8.2 L Hct 26.2 L MCHC RDW 16.5 H Neutrophils # Neutrophils # (Manual) Lymphocytes # Lymphocytes # (Manual) Metamyelocytes # (Man) Nucleated RBCs INR 1.2 H D-Dimer ABG pH ABG pCO2 ABG pO2 ABG HCO3 ABG Total CO2 ABG O2 Saturation ABG Lactic Acid Sodium Potassium Chloride 113 H Carbon Dioxide 20 L BUN 75 H Creatinine 2.52 H Glucose 159 H POC Glucose (mg/dL) Plasma Lactic Acid Russel Calcium 5.6 L* Ionized Calcium [place] Phosphorus Magnesium AST 162 H Alkaline Phosphatase 363 H C-Reactive Protein Total Protein 3.9 L Albumin 1.8 L Triglycerides Vitamin D 25-Hydroxy Procalcitonin Urine Appearance Urine Protein Urine Blood Ur Leukocyte Esterase Urine WBC Urine WBC Clumps Urine Bacteria Hyaline Casts Urine Mucus Crossmatch 08/13/22 08/13/22 08/14/22 05:45 06:01 04:17 WBC 11.2 H RBC 2.99 L Hgb 7.8 L Hct 25.6 L MCHC 30.4 L RDW 16.4 H Neutrophils # 9.4 H Neutrophils # (Manual) Lymphocytes # 0.9 L Lymphocytes # (Manual) Metamyelocytes # (Man) Nucleated RBCs INR D-Dimer ABG pH ABG pCO2 ABG pO2 ABG HCO3 ABG Total CO2 ABG O2 Saturation 97.7 H ABG Lactic Acid Sodium Potassium Chloride Carbon Dioxide BUN Creatinine Glucose POC Glucose (mg/dL) 136 H Plasma Lactic Acid Russel Calcium Ionized Calcium [place] Phosphorus Magnesium AST Alkaline Phosphatase C-Reactive Protein Total Protein Albumin Triglycerides Vitamin D 25-Hydroxy Procalcitonin Urine Appearance Urine Protein Urine Blood Ur Leukocyte Esterase Urine WBC Urine WBC Clumps Urine Bacteria Hyaline Casts Urine Mucus Crossmatch 08/14/22 08/14/22 08/14/22 04:17 05:47 06:07 WBC RBC Hgb Hct MCHC RDW Neutrophils # Neutrophils # (Manual) Lymphocytes # Lymphocytes # (Manual) Metamyelocytes # (Man) Nucleated RBCs INR D-Dimer ABG pH ABG pCO2 ABG pO2 113 H ABG HCO3 ABG Total CO2 ABG O2 Saturation 98.0 H ABG Lactic Acid Sodium Potassium 3.0 L Chloride 116 H Carbon Dioxide 21 L BUN 67 H Creatinine 2.21 H Glucose 123 H POC Glucose (mg/dL) 58 L Plasma Lactic Acid Russel Calcium 5.8 L* Ionized Calcium [place] Phosphorus Magnesium AST Alkaline Phosphatase C-Reactive Protein Total Protein Albumin Triglycerides Vitamin D 25-Hydroxy Procalcitonin Urine Appearance Urine Protein Urine Blood Ur Leukocyte Esterase Urine WBC Urine WBC Clumps Urine Bacteria Hyaline Casts Urine Mucus Crossmatch 08/14/22 08/14/22 08/14/22 06:30 06:33 12:42 WBC RBC Hgb Hct MCHC RDW Neutrophils # Neutrophils # (Manual) Lymphocytes # Lymphocytes # (Manual) Metamyelocytes # (Man) Nucleated RBCs INR D-Dimer ABG pH ABG pCO2 ABG pO2 ABG HCO3 ABG Total CO2 ABG O2 Saturation ABG Lactic Acid Sodium Potassium Chloride Carbon Dioxide BUN Creatinine Glucose POC Glucose (mg/dL) 61 L 147 H 166 H Plasma Lactic Acid Russel Calcium Ionized Calcium [place] Phosphorus Magnesium AST Alkaline Phosphatase C-Reactive Protein Total Protein Albumin Triglycerides Vitamin D 25-Hydroxy Procalcitonin Urine Appearance Urine Protein Urine Blood Ur Leukocyte Esterase Urine WBC Urine WBC Clumps Urine Bacteria Hyaline Casts Urine Mucus Crossmatch 08/14/22 08/14/22 08/15/22 17:33 23:50 04:56 WBC RBC Hgb Hct MCHC RDW Neutrophils # Neutrophils # (Manual) Lymphocytes # Lymphocytes # (Manual) Metamyelocytes # (Man) Nucleated RBCs INR D-Dimer ABG pH ABG pCO2 ABG pO2 ABG HCO3 ABG Total CO2 ABG O2 Saturation ABG Lactic Acid Sodium Potassium Chloride 117 H Carbon Dioxide 19 L BUN 61 H Creatinine 1.74 H Glucose 154 H POC Glucose (mg/dL) 167 H 147 H Plasma Lactic Acid Russel Calcium 6.4 L* Ionized Calcium [place] Phosphorus Magnesium AST 106 H Alkaline Phosphatase 311 H C-Reactive Protein Total Protein 4.0 L Albumin 1.7 L Triglycerides Vitamin D 25-Hydroxy Procalcitonin Urine Appearance Urine Protein Urine Blood Ur Leukocyte Esterase Urine WBC Urine WBC Clumps Urine Bacteria Hyaline Casts Urine Mucus Crossmatch 08/15/22 08/15/22 08/15/22 04:56 05:29 05:30 WBC RBC Hgb Hct MCHC RDW Neutrophils # Neutrophils # (Manual) Lymphocytes # Lymphocytes # (Manual) Metamyelocytes # (Man) Nucleated RBCs INR D-Dimer ABG pH 7.32 L ABG pCO2 ABG pO2 ABG HCO3 20 L ABG Total CO2 ABG O2 Saturation 97.7 H ABG Lactic Acid Sodium Potassium Chloride Carbon Dioxide BUN Creatinine Glucose POC Glucose (mg/dL) 176 H Plasma Lactic Acid Russel Calcium Ionized Calcium [place] Phosphorus Magnesium AST Alkaline Phosphatase C-Reactive Protein Total Protein Albumin Triglycerides Vitamin D 25-Hydroxy 8.1 L Procalcitonin Urine Appearance Urine Protein Urine Blood Ur Leukocyte Esterase Urine WBC Urine WBC Clumps Urine Bacteria Hyaline Casts Urine Mucus Crossmatch 08/15/22 08/15/22 08/15/22 08:15 11:47 15:30 WBC 16.2 H RBC 2.95 L Hgb 7.7 L Hct 25.4 L MCHC 30.2 L RDW 16.7 H Neutrophils # 13.9 H Neutrophils # (Manual) Lymphocytes # Lymphocytes # (Manual) Metamyelocytes # (Man) Nucleated RBCs INR D-Dimer ABG pH ABG pCO2 ABG pO2 ABG HCO3 ABG Total CO2 ABG O2 Saturation ABG Lactic Acid Sodium Potassium Chloride Carbon Dioxide BUN Creatinine Glucose POC Glucose (mg/dL) 129 H Plasma Lactic Acid Russel Calcium Ionized Calcium [place] Phosphorus Magnesium AST Alkaline Phosphatase C-Reactive Protein Total Protein Albumin Triglycerides Vitamin D 25-Hydroxy Procalcitonin Urine Appearance Cloudy H Urine Protein 1+ H Urine Blood Large H Ur Leukocyte Esterase Urine WBC 6 H Urine WBC Clumps Urine Bacteria Rare H Hyaline Casts Urine Mucus Rare H Crossmatch 08/16/22 08/16/22 08/16/22 04:15 04:15 04:15 WBC 20.2 H RBC 3.07 L Hgb 7.8 L Hct 26.3 L MCHC 29.6 L RDW 16.8 H Neutrophils # 17.5 H Neutrophils # (Manual) Lymphocytes # Lymphocytes # (Manual) Metamyelocytes # (Man) Nucleated RBCs INR D-Dimer ABG pH ABG pCO2 ABG pO2 ABG HCO3 ABG Total CO2 ABG O2 Saturation ABG Lactic Acid Sodium 147 H Potassium Chloride 119 H Carbon Dioxide 21 L BUN 59 H Creatinine 1.59 H Glucose 103 H POC Glucose (mg/dL) Plasma Lactic Acid Russel Calcium 6.7 L Ionized Calcium [place] Phosphorus 4.8 H Magnesium AST 89 H Alkaline Phosphatase 290 H C-Reactive Protein 50.4 H Total Protein 4.2 L Albumin 1.7 L Triglycerides Vitamin D 25-Hydroxy Procalcitonin 1.71 H Urine Appearance Urine Protein Urine Blood Ur Leukocyte Esterase Urine WBC Urine WBC Clumps Urine Bacteria Hyaline Casts Urine Mucus Crossmatch 08/16/22 08/16/22 08/16/22 05:41 05:42 11:23 WBC RBC Hgb Hct MCHC RDW Neutrophils # Neutrophils # (Manual) Lymphocytes # Lymphocytes # (Manual) Metamyelocytes # (Man) Nucleated RBCs INR D-Dimer ABG pH ABG pCO2 ABG pO2 ABG HCO3 ABG Total CO2 ABG O2 Saturation 97.8 H ABG Lactic Acid Sodium Potassium Chloride Carbon Dioxide BUN Creatinine Glucose POC Glucose (mg/dL) 113 H 137 H Plasma Lactic Acid Russel Calcium Ionized Calcium [place] Phosphorus Magnesium AST Alkaline Phosphatase C-Reactive Protein Total Protein Albumin Triglycerides Vitamin D 25-Hydroxy Procalcitonin Urine Appearance Urine Protein Urine Blood Ur Leukocyte Esterase Urine WBC Urine WBC Clumps Urine Bacteria Hyaline Casts Urine Mucus Crossmatch 08/16/22 08/16/22 08/17/22 17:06 23:37 03:55 WBC RBC Hgb Hct MCHC RDW Neutrophils # Neutrophils # (Manual) Lymphocytes # Lymphocytes # (Manual) Metamyelocytes # (Man) Nucleated RBCs INR D-Dimer ABG pH ABG pCO2 ABG pO2 ABG HCO3 ABG Total CO2 ABG O2 Saturation ABG Lactic Acid Sodium Potassium Chloride Carbon Dioxide BUN Creatinine Glucose POC Glucose (mg/dL) 199 H 237 H Plasma Lactic Acid Russel Calcium Ionized Calcium [place] Phosphorus Magnesium AST Alkaline Phosphatase C-Reactive Protein Total Protein Albumin Triglycerides 388.00 H Vitamin D 25-Hydroxy Procalcitonin Urine Appearance Urine Protein Urine Blood Ur Leukocyte Esterase Urine WBC Urine WBC Clumps Urine Bacteria Hyaline Casts Urine Mucus Crossmatch 08/17/22 08/17/22 08/17/22 03:55 03:55 05:22 WBC 19.7 H RBC 2.79 L Hgb 7.3 L Hct 24.4 L MCHC 29.8 L RDW 16.6 H Neutrophils # Neutrophils # (Manual) Lymphocytes # Lymphocytes # (Manual) Metamyelocytes # (Man) Nucleated RBCs INR D-Dimer ABG pH 7.32 L ABG pCO2 ABG pO2 115 H ABG HCO3 ABG Total CO2 ABG O2 Saturation 98.3 H ABG Lactic Acid Sodium 147 H Potassium 3.3 L Chloride 121 H Carbon Dioxide 21 L BUN 57 H Creatinine 1.58 H Glucose 211 H POC Glucose (mg/dL) Plasma Lactic Acid Russel Calcium 6.9 L Ionized Calcium [place] Phosphorus Magnesium AST 70 H Alkaline Phosphatase 273 H C-Reactive Protein Total Protein 4.2 L Albumin 1.7 L Triglycerides Vitamin D 25-Hydroxy Procalcitonin Urine Appearance Urine Protein Urine Blood Ur Leukocyte Esterase Urine WBC Urine WBC Clumps Urine Bacteria Hyaline Casts Urine Mucus Crossmatch 08/17/22 08/17/22 08/17/22 05:53 11:56 17:58 WBC RBC Hgb Hct MCHC RDW Neutrophils # Neutrophils # (Manual) Lymphocytes # Lymphocytes # (Manual) Metamyelocytes # (Man) Nucleated RBCs INR D-Dimer ABG pH ABG pCO2 ABG pO2 ABG HCO3 ABG Total CO2 ABG O2 Saturation ABG Lactic Acid Sodium Potassium Chloride Carbon Dioxide BUN Creatinine Glucose POC Glucose (mg/dL) 260 H 247 H 217 H Plasma Lactic Acid Russel Calcium Ionized Calcium [place] Phosphorus Magnesium AST Alkaline Phosphatase C-Reactive Protein Total Protein Albumin Triglycerides Vitamin D 25-Hydroxy Procalcitonin Urine Appearance Urine Protein Urine Blood Ur Leukocyte Esterase Urine WBC Urine WBC Clumps Urine Bacteria Hyaline Casts Urine Mucus Crossmatch 08/17/22 08/17/22 08/18/22 20:20 23:38 04:30 WBC RBC Hgb Hct MCHC RDW Neutrophils # Neutrophils # (Manual) Lymphocytes # Lymphocytes # (Manual) Metamyelocytes # (Man) Nucleated RBCs INR D-Dimer ABG pH ABG pCO2 ABG pO2 ABG HCO3 ABG Total CO2 ABG O2 Saturation ABG Lactic Acid Sodium 148 H Potassium 2.9 L 3.0 L Chloride 119 H Carbon Dioxide BUN 58 H Creatinine 1.26 H Glucose 292 H POC Glucose (mg/dL) 305 H Plasma Lactic Acid Russel Calcium 7.1 L Ionized Calcium [place] Phosphorus Magnesium AST 56 H Alkaline Phosphatase 275 H C-Reactive Protein Total Protein 4.4 L Albumin 1.7 L Triglycerides Vitamin D 25-Hydroxy Procalcitonin Urine Appearance Urine Protein Urine Blood Ur Leukocyte Esterase Urine WBC Urine WBC Clumps Urine Bacteria Hyaline Casts Urine Mucus Crossmatch 08/18/22 08/18/22 08/18/22 04:30 05:49 11:18 WBC 16.5 H RBC 2.74 L Hgb 7.0 L Hct 23.9 L MCHC 29.1 L RDW 17.2 H Neutrophils # 14.3 H Neutrophils # (Manual) Lymphocytes # 0.9 L Lymphocytes # (Manual) Metamyelocytes # (Man) Nucleated RBCs INR D-Dimer ABG pH ABG pCO2 ABG pO2 ABG HCO3 ABG Total CO2 ABG O2 Saturation ABG Lactic Acid Sodium Potassium Chloride Carbon Dioxide BUN Creatinine Glucose POC Glucose (mg/dL) 337 H 337 H Plasma Lactic Acid Russel Calcium Ionized Calcium [place] Phosphorus Magnesium AST Alkaline Phosphatase C-Reactive Protein Total Protein Albumin Triglycerides Vitamin D 25-Hydroxy Procalcitonin Urine Appearance Urine Protein Urine Blood Ur Leukocyte Esterase Urine WBC Urine WBC Clumps Urine Bacteria Hyaline Casts Urine Mucus Crossmatch 08/18/22 08/18/22 08/19/22 15:30 18:33 00:24 WBC RBC Hgb Hct MCHC RDW Neutrophils # Neutrophils # (Manual) Lymphocytes # Lymphocytes # (Manual) Metamyelocytes # (Man) Nucleated RBCs INR D-Dimer ABG pH ABG pCO2 ABG pO2 ABG HCO3 ABG Total CO2 ABG O2 Saturation ABG Lactic Acid Sodium Potassium 3.4 L Chloride Carbon Dioxide BUN Creatinine Glucose POC Glucose (mg/dL) 271 H 160 H Plasma Lactic Acid Russel Calcium Ionized Calcium [place] Phosphorus Magnesium AST Alkaline Phosphatase C-Reactive Protein Total Protein Albumin Triglycerides Vitamin D 25-Hydroxy Procalcitonin Urine Appearance Urine Protein Urine Blood Ur Leukocyte Esterase Urine WBC Urine WBC Clumps Urine Bacteria Hyaline Casts Urine Mucus Crossmatch 08/19/22 08/19/22 08/19/22 05:10 05:10 05:10 WBC 19.9 H RBC 2.64 L Hgb 6.9 L* Hct 23.7 L MCHC 29.1 L RDW 16.8 H Neutrophils # Neutrophils # (Manual) Lymphocytes # Lymphocytes # (Manual) Metamyelocytes # (Man) Nucleated RBCs INR D-Dimer ABG pH ABG pCO2 ABG pO2 ABG HCO3 ABG Total CO2 ABG O2 Saturation ABG Lactic Acid Sodium 147 H Potassium 3.4 L Chloride 118 H Carbon Dioxide BUN 56 H Creatinine 1.11 H Glucose 203 H POC Glucose (mg/dL) Plasma Lactic Acid Russel Calcium 7.3 L Ionized Calcium [place] Phosphorus Magnesium AST 45 H Alkaline Phosphatase 267 H C-Reactive Protein 36.1 H Total Protein 4.4 L Albumin 1.7 L Triglycerides Vitamin D 25-Hydroxy Procalcitonin Urine Appearance Urine Protein Urine Blood Ur Leukocyte Esterase Urine WBC Urine WBC Clumps Urine Bacteria Hyaline Casts Urine Mucus Crossmatch 08/19/22 08/19/22 08/19/22 05:26 05:28 12:05 WBC RBC Hgb Hct MCHC RDW Neutrophils # Neutrophils # (Manual) Lymphocytes # Lymphocytes # (Manual) Metamyelocytes # (Man) Nucleated RBCs INR D-Dimer ABG pH ABG pCO2 ABG pO2 ABG HCO3 ABG Total CO2 ABG O2 Saturation 97.5 H ABG Lactic Acid Sodium Potassium Chloride Carbon Dioxide BUN Creatinine Glucose POC Glucose (mg/dL) 243 H 211 H Plasma Lactic Acid Russel Calcium Ionized Calcium [place] Phosphorus Magnesium AST Alkaline Phosphatase C-Reactive Protein Total Protein Albumin Triglycerides Vitamin D 25-Hydroxy Procalcitonin Urine Appearance Urine Protein Urine Blood Ur Leukocyte Esterase Urine WBC Urine WBC Clumps Urine Bacteria Hyaline Casts Urine Mucus Crossmatch 08/19/22 08/19/22 08/19/22 12:33 17:58 23:46 WBC RBC Hgb Hct MCHC RDW Neutrophils # Neutrophils # (Manual) Lymphocytes # Lymphocytes # (Manual) Metamyelocytes # (Man) Nucleated RBCs INR D-Dimer ABG pH ABG pCO2 ABG pO2 ABG HCO3 ABG Total CO2 ABG O2 Saturation ABG Lactic Acid Sodium Potassium Chloride Carbon Dioxide BUN Creatinine Glucose POC Glucose (mg/dL) 193 H 260 H Plasma Lactic Acid Russel Calcium Ionized Calcium [place] Phosphorus Magnesium AST Alkaline Phosphatase C-Reactive Protein Total Protein Albumin Triglycerides Vitamin D 25-Hydroxy Procalcitonin Urine Appearance Urine Protein Urine Blood Ur Leukocyte Esterase Urine WBC Urine WBC Clumps Urine Bacteria Hyaline Casts Urine Mucus Crossmatch See Detail 08/20/22 08/20/22 08/20/22 05:40 05:43 05:43 WBC 26.6 H RBC 3.23 L Hgb 8.7 L D Hct 29.8 L MCHC 29.2 L RDW 17.2 H Neutrophils # Neutrophils # (Manual) Lymphocytes # Lymphocytes # (Manual) Metamyelocytes # (Man) Nucleated RBCs INR D-Dimer ABG pH 7.20 L ABG pCO2 ABG pO2 76 L ABG HCO3 17 L ABG Total CO2 18 L ABG O2 Saturation 92.4 L ABG Lactic Acid Sodium Potassium Chloride 118 H Carbon Dioxide 17 L BUN 67 H Creatinine 1.44 H Glucose 253 H POC Glucose (mg/dL) Plasma Lactic Acid Russel Calcium 6.7 L Ionized Calcium [place] Phosphorus Magnesium AST 38 H Alkaline Phosphatase 205 H C-Reactive Protein Total Protein 3.9 L Albumin 1.4 L Triglycerides Vitamin D 25-Hydroxy Procalcitonin Urine Appearance Urine Protein Urine Blood Ur Leukocyte Esterase Urine WBC Urine WBC Clumps Urine Bacteria Hyaline Casts Urine Mucus Crossmatch 08/20/22 05:44 WBC RBC Hgb Hct MCHC RDW Neutrophils # Neutrophils # (Manual) Lymphocytes # Lymphocytes # (Manual) Metamyelocytes # (Man) Nucleated RBCs INR D-Dimer ABG pH ABG pCO2 ABG pO2 ABG HCO3 ABG Total CO2 ABG O2 Saturation ABG Lactic Acid Sodium Potassium Chloride Carbon Dioxide BUN Creatinine Glucose POC Glucose (mg/dL) 290 H Plasma Lactic Acid Russel Calcium Ionized Calcium [place] Phosphorus Magnesium AST Alkaline Phosphatase C-Reactive Protein Total Protein Albumin Triglycerides Vitamin D 25-Hydroxy Procalcitonin Urine Appearance Urine Protein Urine Blood Ur Leukocyte Esterase Urine WBC Urine WBC Clumps Urine Bacteria Hyaline Casts Urine Mucus Crossmatch Assessment and Plan Assessment: Altered mental status due to primarily septic encephalopathy. Also has some component of metabolic encephalopathy with worsening of the kidney function. Has been off sedation for 3 days. Sepsis shock requiring pressor support and seems has urinary tract infection with urine culture positive for Enterococcus faecalis and Pseudomonas aeruginosa as well as systemic candidiasis Has worsening leukocytosis with continued to have fever due to her sepsis Atrial fibrillation on eliquis (which has hx of afib) Acute on chronic hypoxemic respiratory failure secondary selected diastolic congestive heart failure requiring intubation mechanical ventilation Acute on chronic kidney disease trending down History of TIAs/stroke History of coronary artery disease with stent Hypertension Hyperlipidemia Diabetes mellitus Plan: I ordered a CT of the head to rule out any acute or subacute ischemia or any int raparenchymal hemorrhage Ordered an urgent EEG. Ordered ammonia level Patient is on pressor support and recommend avoiding hypotensive episode which can the results in watershed infarcts ID team is on board We'll defer the rest of medical management to primary and ICU team The patient condition is very guarded. Plan discussed with the patient's son who is at bedside and her nurse. Thank you for the consultation Time with Patient: Greater than 30
[2022-08-20 11:31] LABS: Glucose,Whole Blood 240 mg/dL (70-110)
[2022-08-20] MEDS ORDERED: FUROSEMIDE 10 MG/ML 10 ML VIAL IV ONE (12:00)
--- NOTE | 2022-08-20 12:42 | P.PN ---
Subjective This is a 87-year-old morbidly, obese, female, well known to me. She has multiple medical problems including a chronic renal failure, chronic systolic congestive heart failure. I last seen her on August 05, 2022 at [facility] on the [place]. She was doing fairly well at that time. She was there for rehabilitation. This was her third [facility] visit in the past Several months.Her only complaint with some constipation. She not stool since August 03. She has been hospitalized in the past year nine times including this current visit.She was [place] [facility] [place]. On August 08, 2022 she presented the emergency room via EMS. Her indicates that she went to the bathroom, and, he had found her slumped over in her wheelchair, blue in the face and not breathing well. He had tried to feed her and given her some insulin. SheHer only complaint with some constipation. After patients admission, just after midnight and 18 was called on her and she is going to be attending hypotensive. Choose placement of any mask and BiPAP. Eventually she required intubation. And her about August 11. She's currently in abated and sedated.How to raise tachycardic blood pressure is stable with pressers.She is on aAnidulafungin For positive sputum and blood cultures of yeast. She remains on sodium chloride and potassium chloride IV and is now on tube feeds at 10 ml/hr. Labs for today show a leukocytosis at 16.2 with a left shift 13.9 neutrophils hemoglobin is 7.7. ABGs from this morning show page 7.32 PCO2 of 39 PO and HCO3 a 20.Chemistry is show the normal electrolytes decrease carbon dioxide and 19 GFR is 26. Calcium 6.4. She is receiving a amino acids and D5 through the IV. She has Dulcolax per rectum ordered. She has sheathing calcium gluconate. She remains Zerbaxa for antibiotic coverage.She is receiving Lovenox for anticoagulation and DVT prophylaxis, Levemir insulin along with scale, Levophed for blood pressure control, potassium chloride for hypokalemia. She's being followed by critical care, Nephrology,surgery, Infectious disease and cardiology August 16 2022: She remains intubated in the intensive care unit. Sedation has been discontinued. She remains on pressors of Levophed. The dose of this is been decreased. She did not tolerate tube feeds. Heart rate remains elevated. She is in atrial fibrillation. She is on potassium replacement protocol. Calcium gluconate, amiodarone drip, need to left fungated antifungal medication, ceftolazone/tazobactam for antibiotic coverage for suspected UTI and sepsis, Reglan for her constipation, insulin for her diabetes, Elequis for anticoagulation. Laboratory studies show a leukocytosis at 20.2 with hemoglobin of 70 absolute neutrophils 17.5. ABGs show pH 7.36 PCO2 39 PO2 107. Chemistries slightly altered, GFR is improved, CRP and pro calcitonin elevated. Repeat blood cultures have been negative. She remains on MiraLAX, lactulose and Reglan per critical care for the constipation issues. Calcitonin is improved. Glucose remains well controlled. Critical care planning gradually reducing her pressors as needed. Etiologies following for her A. fib with RVR. He continues to have volvulus. 08/17/2022: Patient remains intubated in the intensive care unit. He remains on norepinephrine and vasopressin for hypotension. Sedation used propofol but will be discontinued soon for a trial ventilator on standby. I discussed her case personally with the jetting machine operator. She remains on Levemir insulin 10 units and NovoLog scale every 6 hours. Staff reports increased sugars recently. She continues on naproxen than for anticoagulation, amiodarone for atrial fibrillation with RVR, budesonide for her COPD, Eraxis for candidal infection and Zybrexa for anti-biotic coverage for UTI. Her main some potassium protocol. She is on lactulose and Reglan to help with her obstipation. She is receiving TPN for nutrition. I remains tachycardic, rest her rate somewhat elevated. Blood pressure remained stable. WB Nayla is slightly improved from yesterday, hemoglobin is slightly down from yesterday. Blood gases chemistries reviewed. She remains hypokalemic. Kidney function continues to improve very slowly. Glucose was 260 this morning. Calcium and protein albumin remained low. Her 13 blood cultures remain negative. Her condition is critical care cardiology reviewed. Chest x-ray shows no nipple can't change. 08/18 2022: Patient remains intubated in the intensive care unit. Sedation has been off, but there's been no significant wakefulness noted. Vital signs show she remains tachycardic in the 130s. Respiratory rate is 30 and mechanically ventilated, blood pressure remains low normal with pressers of vasopressin and levo fed. FiO2 is 40 Labs show to be discussed 16 5 hemoglobin 7 hematocrit 23.9 platelets are 301. Arterial line gases show pH 7.35 PCO2 40 and PO2 of 89. Chemistry shows sodium 148 potassium 3.0 chloride 119 CO2 23 BUN 58 crit and 1.26. Critical care, nephrology notes were reviewed. 08/19/2022: Patient remains in abated intensive care unit. She's been off sedation 48 hours but is not responding to family and only has reflexes noted. Remains mechanically ventilated. Staff reports large stools now and the need for fecal management system. He is now febrile at 101.4 axillary. Heart rate remains tachycardic in atrial fibrillation. Pulse oximetry is 92% on 40% FiO2. Labs today showed a B scan in 19 9, hemoglobin is 6.9, platelets 280. Blood gases are reviewed. Minimally hyponatremic and hypokalemic. BUN is 56, creatinine 1.1 on, GFR now 46. The kidney function continues to improve. They have packed red blood cells been ordered and pending. Consult recommendations were reviewed. She remains on the plan per critical care. 08/20/2022: Patient remains intubated in the intensive care unit. She remains off sedation. She is still unresponsive. She continues to be mechanically v entilated. She has been febrile for the past 24 hours with MAXIMUM TEMPERATURE of 103F. She reports increased use of pressors to control blood pressure. WBC count is increased in 26 6. Hemoglobin is 8.7. She received 1 unit of packed red blood cells yesterday. Blood gases are slightly worsened as is her kidney function today. Neurology was consulted and see the patient. Notes reviewed from critical care and surgery and cardiology. Patient remains on amiodarone, Elequis for atrial fibrillation. She remains on Z-Kimo, Eraxis now vancomycin for sepsis. 2. Has been stopped. She remains on NovoLog scale and detemir insulin area and her son and were at bedside. Case was discussed with him as well. Objective - Vital Signs Vital signs: Vital Signs Temp 100.3 F H 08/20/22 08:00 Pulse 129 H 08/20/22 12:00 Resp 37 H 08/20/22 12:00 BP 99/52 08/19/22 16:39 Pulse Ox 99 08/20/22 12:00 FiO2 40 08/20/22 11:31 Intake & Output 08/19/22 08/20/22 08/20/22 18:59 06:59 18:59 Intake Total 5956.484 4768.8573 795.285 Output Total 1810 255 9 Balance 4146.484 4513.8573 786.285 Weight 128 kg Intake: IV 186 3024 120 0.9% @ KVO 150 240 40 Potassium Acetate 20 meq 748 68 Calcium Gluconate 1 gm Magnesium Sulfate gm 0.5 gm Potassium Phosphate 10 mmol In Amino Acid 5%- D15w 1,000 ml @ 68 mls/hr IV .BY DURATION [facility] Rx#: [id number] Pressure Bag 36 36 12 Sodium Chloride 0.9% 2, 2000 000 ml @ 999 mls/hr IV . Q2H1M [facility] Rx#:[id number] Intake, IV Titration 4950.484 1744.8573 675.285 Amount Amiodarone 450 mg In 458.884 483.331 Dextrose 5% in Water 250 ml @ 1 MG/MIN 33.333 mls/ hr IV .Q7H30M [facility] Rx#: [id number] Anidulafungin 100 mg In 100 100 Sodium Chloride 0.9% 100 ml @ 84 mls/hr IVPB DAILY [facility] Rx#:[id number] Ceftolozane/Tazobactam 0. 100 100 75 gm In Sodium Chloride 0.9% 100 ml @ 100 mls/hr IV Q8HR [facility] Rx#:[id number] Magnesium Sulfate-D5w Pmx 100 1 gm In Dextrose/Water 1 100ml.bag @ 100 mls/hr IVPB [facility]CE [facility] Rx#: [id number] Mvi, Adult No.4 with Vit 68 K 10 ml Trace (Conc-1Ml/ Dose) 1 ml Potassium Acetate 20 meq Calcium Gluconate 1 gm Magnesium Sulfate gm 0.5 gm Potassium Phosphate 10 mmol In Amino Acid 5%- D15w 1,000 ml @ 68 mls/hr IV .BY DURATION [facility] Rx#: [id number] Norepinephrine 32 mg In 67.710 169.193 41.285 Sodium Chloride 0.9% 218 ml @ 0.5 MCG/KG/MIN 25. 547 mls/hr IV .Q9H48M [facility] Rx#:[id number] Potassium Acetate 20 meq 734 1092.3333 Calcium Gluconate 1 gm Magnesium Sulfate gm 0.5 gm Potassium Phosphate 10 mmol In Amino Acid 5%- D15w 1,000 ml @ 68 mls/hr IV .BY DURATION [facility] Rx#: [id number] Potassium Chloride 20 meq 300 In Water For Injection 1 100ml.bag @ 50 mls/hr IVPB Q2H [facility] Rx#: [id number] Sodium Chloride 0.9% 1, 1000 000 ml @ 999 mls/hr IV . Q1H1M [facility] Rx#:[id number] Sodium Chloride 0.9% 1, 2000 000 ml @ 999 mls/hr IV . Q1H1M [facility] Rx#:[id number] Vancomycin 2,000 mg In 334 Sodium Chloride 0.9% 500 ml 500 ml @ 167 mls/hr IVPB [facility] Rx#: [id number] Vasopressin 60 unit In 121.89 Sodium Chloride 0.9% 150 ml @ 0.04 UNITS/MIN 6.12 mls/hr IV .Q24H [facility] Rx#: [id number] Oral 150 Blood Product 620 Rc As-1 Unit 310 [id number] Other 50 Rc As-1 Unit 50 [id number] Output: Gastric Drainage 450 Urine 560 55 9 Stool 800 200 Other: Voiding Method Indwelling Catheter Indwelling Catheter Indwelling Catheter ABP, PAP, CO, CI - Last Documented Arterial Blood Pressure 110/45 - Exam General: Patient is intubated in ICU, patient is not arousable. Neck: [No adenopathy.] Cardiac: [Heart regularly irregular, tachycardic. S1/S2 were equal, there is a 1/6 systolic murmur at the right, and left sternal border Lungs: Diminished breath sounds bilaterally scattered rhonchi noted mechanically ventilated Abdomen: Somewhat distended due to her fecal retention. No organomegaly. Bowel sounds presnt and hypoactive in all 4 quadrants. This patient is morbidly obese, mild distention Extremes: Bilateral lower extremity and upper extremity edema is improved. Offloading waffle boots are in place. Skin: Multiple small wounds have bordered foam dressings in place. Neurologic: Patient is on a ventilatory support about sedation but only has reflexes as indicated by the nursing staff. Lymphatic: [No adenopathy.] - Labs CBC & Chem 7: 08/20/22 05:43 08/20/22 05:43 Labs: Abnormal Lab Results - Last 24 Hours (Table) 08/19/22 08/19/22 08/19/22 Range/Units 05:10 12:33 17:58 WBC (3.8-10.6) k/uL RBC (3.80-5.40) m/uL Hgb (11.4-16.0) gm/dL Hct (34.0-46.0) % MCHC (31.0-37.0) g/dL RDW (11.5-15.5) % ABG pH (7.35-7.45) ABG pO2 (83-108) mmHg ABG HCO3 (21-25) mmol/L ABG Total CO2 (19-24) mmol/L ABG O2 Saturation (94-97) % Chloride (98-107) mmol/L Carbon Dioxide (22-30) mmol/L BUN (7-17) mg/dL Creatinine (0.52-1.04) mg/dL Glucose (74-99) mg/dL POC Glucose (mg/dL) 193 H (70-110) mg/dL Calcium (8.4-10.2) mg/dL AST (14-36) U/L Alkaline Phosphatase (38-126) U/L C-Reactive Protein 36.1 H (<1.0) mg/dL Total Protein (6.3-8.2) g/dL Albumin (3.5-5.0) g/dL Crossmatch See Detail 08/19/22 08/20/22 08/20/22 Range/Units 23:46 05:40 05:43 WBC (3.8-10.6) k/uL RBC (3.80-5.40) m/uL Hgb (11.4-16.0) gm/dL Hct (34.0-46.0) % MCHC (31.0-37.0) g/dL RDW (11.5-15.5) % ABG pH 7.20 L (7.35-7.45) ABG pO2 76 L (83-108) mmHg ABG HCO3 17 L (21-25) mmol/L ABG Total CO2 18 L (19-24) mmol/L ABG O2 Saturation 92.4 L (94-97) % Chloride 118 H (98-107) mmol/L Carbon Dioxide 17 L (22-30) mmol/L BUN 67 H (7-17) mg/dL Creatinine 1.44 H (0.52-1.04) mg/dL Glucose 253 H (74-99) mg/dL POC Glucose (mg/dL) 260 H (70-110) mg/dL Calcium 6.7 L (8.4-10.2) mg/dL AST 38 H (14-36) U/L Alkaline Phosphatase 205 H (38-126) U/L C-Reactive Protein (<1.0) mg/dL Total Protein 3.9 L (6.3-8.2) g/dL Albumin 1.4 L (3.5-5.0) g/dL Crossmatch 08/20/22 08/20/22 08/20/22 Range/Units 05:43 05:44 11:29 WBC 26.6 H (3.8-10.6) k/uL RBC 3.23 L (3.80-5.40) m/uL Hgb 8.7 L D (11.4-16.0) gm/dL Hct 29.8 L (34.0-46.0) % MCHC 29.2 L (31.0-37.0) g/dL RDW 17.2 H (11.5-15.5) % ABG pH (7.35-7.45) ABG pO2 (83-108) mmHg ABG HCO3 (21-25) mmol/L ABG Total CO2 (19-24) mmol/L ABG O2 Saturation (94-97) % Chloride (98-107) mmol/L Carbon Dioxide (22-30) mmol/L BUN (7-17) mg/dL Creatinine (0.52-1.04) mg/dL Glucose (74-99) mg/dL POC Glucose (mg/dL) 290 H 240 H (70-110) mg/dL Calcium (8.4-10.2) mg/dL AST (14-36) U/L Alkaline Phosphatase (38-126) U/L C-Reactive Protein (<1.0) mg/dL Total Protein (6.3-8.2) g/dL Albumin (3.5-5.0) g/dL Crossmatch Microbiology - Last 24 Hours (Table) 08/19/22 21:07 Sputum Culture - Preliminary Sputum 08/19/22 18:00 Stool Culture - Preliminary Stool 08/14/22 15:00 Blood Culture - Preliminary Blood No Growth after 120 hours Assessment and Plan (1) Sepsis Current Visit: Yes Status: Acute Code(s): A41.9 - SEPSIS, UNSPECIFIED ORGANISM SNOMED Code(s): 33515198 (2) Acute on chronic diastolic (congestive) heart failure Current Visit: No Status: Acute Code(s): I50.33 - ACUTE ON CHRONIC DIASTOLIC (CONGESTIVE) HEART FAILURE SNOMED Code(s): 238324381 (3) Hypokalemia Current Visit: Yes Status: Acute Code(s): E87.6 - HYPOKALEMIA SNOMED Code(s): 32112572 (4) Hypocalcemia Current Visit: Yes Status: Acute Code(s): E83.51 - HYPOCALCEMIA SNOMED Code(s): 4106878 (5) Acute exacerbation of chronic obstructive pulmonary disease Current Visit: Yes Status: Acute Code(s): J44.1 - CHRONIC OBSTRUCTIVE PULMONARY DISEASE W (ACUTE) EXACERBATION SNOMED Code(s): 170586213 (6) Pneumonia Current Visit: Yes Status: Acute Code(s): J18.9 - PNEUMONIA, UNSPECIFIED ORGANISM SNOMED Code(s): 750405587 (7) Acute on chronic renal failure Current Visit: No Status: Acute Code(s): N17.9 - ACUTE KIDNEY FAILURE, UNSP ECIFIED; N18.9 - CHRONIC KIDNEY DISEASE, UNSPECIFIED SNOMED Code(s): 422063672 (8) Altered mental status Current Visit: No Status: Acute Code(s): R41.82 - ALTERED MENTAL STATUS, UNSPECIFIED SNOMED Code(s): 639643398 (9) CAD (coronary atherosclerotic disease) Current Visit: No Status: Acute Code(s): I25.10 - ATHSCL HEART DISEASE OF [place] CORONARY ARTERY W/O ANG PCTRS SNOMED Code(s): 027490163 (10) Hypertension Current Visit: No Status: Acute Code(s): I10 - ESSENTIAL (PRIMARY) HYPERTENSION SNOMED Code(s): 41509708 (11) Hypoxia Current Visit: No Status: Acute Code(s): R09.02 - HYPOXEMIA SNOMED Code(s): 835801507 (12) Leukocytosis Current Visit: No Status: Acute Code(s): D72.829 - ELEVATED WHITE BLOOD CELL COUNT, UNSPECIFIED SNOMED Code(s): 875064366 (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 Current Visit: No Status: Acute Code(s): Z79.891 - [facility] (CURRENT) USE OF OPIATE ANALGESIC SNOMED Code(s): 778302878 (14) Type 2 diabetes mellitus without complications Current Visit: No Status: Acute Code(s): E11.9 - TYPE 2 DIABETES MELLITUS WITHOUT COMPLICATIONS SNOMED Code(s): 346572250 (15) UTI (urinary tract infection) Current Visit: No Status: Acute Code(s): N39.0 - URINARY TRACT INFECTION, SITE NOT SPECIFIED SNOMED Code(s): 81766807 (16) Urinary retention Current Visit: No Status: Acute Code(s): R33.9 - RETENTION OF URINE, UNSPECIFIED SNOMED Code(s): 449452752 Plan: I will standby for further recommendations from neurology, critical care, infectious disease, Nephrology, general surgery, cardiology, repeat labs in a.m., I spent 10 minutes discussing her care with her son , EEG and CT the brain and abdomen are pending at this time. She remains gravely ill. Family medicine well reevaluate next 24 hours.
[2022-08-20] MEDS ORDERED: levETIRAcetam IV 1,000 MG in SALINE 1 100ML.BAG IVPB STA (13:32)
[2022-08-20 13:43] LABS: Glucose,Whole Blood 201 mg/dL (70-110)
[2022-08-20] MEDS ORDERED: LORazepam 2 MG/ML INJ IV STA (13:49)
[2022-08-20 14:07] LABS: ABG HCO3 17 mmol/L (21-25); ABG Oxygen Saturation 99.7 % (94-97); ABG PCO2 41 mmHg (35-45); ABG PH 7.22 (7.35-7.45); ABG PO2 399 mmHg (83-108); ABG TCO2 18 mmol/L (19-24)
[2022-08-20 14:09] LABS: Allen Test Performed? no
[2022-08-20] MEDS ORDERED: EPINEPHrine 10 ML SYRINGE (0.1 MG/ML) ONE (16:04)
[2022-08-20] MEDS ORDERED: ATROPINE SULFATE 0.1 MG/ML 10ML SYRINGE ONE (16:04)
[2022-08-20] MEDS: VASOPRESSIN 60 UNIT in SODIUM CHLORIDE 0.9% 150 ML IV SCH (17:04)
--- NOTE | 2022-08-20 17:23 | CT ---
EXAMINATION TYPE: CT brain wo con CT DLP: 1099.4 mGycm, Automated exposure control for dose reduction was used. DATE OF EXAM: 08/20/2022 4:32 PM COMPARISON: None. CLINICAL INDICATION:Female, 87 years old with history of altered mental status, ams TECHNIQUE: Brain: Axial CT images of the brain were obtained with coronal and sagittal reformats created and rev iewed. Contrast used: None. Oral contrast used: None. FINDINGS: Brain: Extra-axial spaces: No abnormal extra-axial fluid collections. Ventricular system: Within normal limits Cerebral parenchyma: Cerebral atrophy. No acute intraparenchymal hemorrhage or mass effect. The [place] -white junction is well differentiated. Cerebellum: Unremarkable. Mass effect: No evidence of midline shift. Intracranial vasculature: Atherosclerotic calcifications of the intracranial vessels. Soft tissues: Normal. Calvarium/osseous structures: No depressed skull fracture. Paranasal sinuses and mastoid air cells: Moderate scattered paranasal sinus disease, predominantly wi thin the left maxillary sinus. Visualized orbits: Bilateral aphakia IMPRESSION: 1. Generalized cerebral atrophy without acute intracranial process. 2. Mild paranasal sinus disease.
[2022-08-20 17:52] LABS: Glucose,Whole Blood 146 mg/dL (70-110)
--- NOTE | 2022-08-20 18:02 | CT ---
EXAMINATION TYPE: CT abdomen pelvis wo con CT DLP: 2068.8 mGycm, Automated exposure control for dose reduction was used. DATE OF EXAM: 08/20/2022 4:32 PM COMPARISON: CT abdomen pelvis 08/08/2022 CLINICAL INDICATION:Female, 87 years old with history of distended abd; abd distention TECHNIQUE: Axial CT of the abdomen and pelvis. Sagittal and coronal reformats were created on a [employer] workstation. Contrast used: None Oral contrast used: without Oral Contrast FINDINGS: LOWER CHEST: Patchy airspace opacities bilaterally within the lower lobes. Confluent right lower lobe airspace opacity. The focal subsegmental atelectasis. ABDOMEN LIVER: Unremarkable GALLBLADDER AND BILE DUCTS: The gallbladder is surgically absent. PANCREAS: Unremarkable. SPLEEN: Unremarkable. ADRENAL GLANDS: Unremarkable. KIDNEYS AND URETERS: No evidence of hydronephrosis or renal calculus. The ureters are unremarkable. PELVIS BLADDER: Unremarkable REPRODUCTIVE: Right ovarian fat-containing lesion measures 4.2 x 3.6 cm (series 201, image 66). 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 ABDOMEN & PELVIS STOMACH AND BOWEL: Enteric tube is present with tip in the proximal stomach. Abnormal, focal wall thi ckening of the great curvature of the stomach measuring up to 6.1 cm in width (series 201, image 24 a nd series 202, image 19). Few prominent loops of small bowel are seen within the central and left hem iabdomen, measuring up to 0.2 cm in width (series 201, image 39) normal caliber bowel loops are seen both proximally and distally.. Pneumatosis involving multiple loops of distal colonic bowel (series 2 01, image 69 and series 202, image 70). PERITONEUM: Moderate volume pneumoperitoneum, predominantly distributed along the anterior abdomen. M ultiple air foci are seen along the hepatic margin and throughout the mesentery. Trace free fluid is seen within the pelvis. VASCULATURE: Moderate atherosclerotic calcifications are present throughout the abdominal aorta and i ts branches. No evidence of aortic aneurysm. Right femoral central venous catheter is present. MUSCULOSKELETAL: Surgical changes of the lumbar spine. Hardware appears intact. Degenerative changes are present at multiple levels. No acute osseous abnormalities. Degenerative changes of the hip joint s bilaterally. LYMPH NODES: No gross evidence for lymphadenopathy. SOFT TISSUE/ABDOMINAL WALL: Diffuse anasarca. Findings communicated to Dr. Marielle [place] on 08/20/2022 5:[address] Reynoso. IMPRESSION: 1. Moderate volume pneumoperitoneum. Origins are suspected from perforation of distal colonic bowel given extensive distal bowel pneumatosis. 2. Few focally dilated small bowel loops, suspected to be reactive. 3. Abnormal, focal wall thickening of the stomach. Recommend direct visualization endoscopy when clin ically appropriate. 4. Diffuse anasarca and mesenteric edema. 5. Right basilar air space opacity. 6. Stable right ovarian dermoid and other findings as detailed above.
--- NOTE | 2022-08-20 18:07 | P.PN ---
Subjective Progress Note Date: 08/20/22 Principal diagnosis: Sepsis/septic shock Patient is a 87-year-old female with multiple comorbidities presented to the hospital with a syncopal episode weakness subsequently hypotension, sepsis requiring transfer to the ICU and intubation on the vent. On today's evaluation that is 08/20/2022, the patient remains to be febrile this morning, the patient is requiring more pressor support to maintain her blood pressure per the nursing staff, the patient FiO2 however is currently stable at 40 %, no significant purulent secretions through the ET , patient did have NG to suction and the patient is currently on TPN , patient did have multiple bowel movements , stool for C. diff is negative patient noticed to have a wound abdominal distention Objective - Vital Signs Vital signs: Vital Signs Temp 100.3 F H 08/20/22 08:00 Pulse 125 H 08/20/22 08:34 Resp 30 H 08/20/22 08:00 BP 99/52 08/19/22 16:39 Pulse Ox 95 08/20/22 08:00 FiO2 40 08/20/22 08:00 Intake & Output 08/19/22 08/20/22 08/20/22 18:59 06:59 18:59 Intake Total 5956.484 4768.8573 114 Output Total 1810 255 4 Balance 4146.484 4513.8573 110 Weight 128 kg Intake: IV 186 3024 114 0.9% @ KVO 150 240 40 Potassium Acetate 20 meq 748 68 Calcium Gluconate 1 gm Magnesium Sulfate gm 0.5 gm Potassium Phosphate 10 mmol In Amino Acid 5%- D15w 1,000 ml @ 68 mls/hr IV .BY DURATION [facility] Rx#: [id number] Pressure Bag 36 36 6 Sodium Chloride 0.9% 2, 2000 000 ml @ 999 mls/hr IV . Q2H1M [facility] Rx#:[id number] Intake, IV Titration 4950.484 1744.8573 Amount Amiodarone 450 mg In 458.884 483.331 Dextrose 5% in Water 250 ml @ 1 MG/MIN 33.333 mls/ hr IV .Q7H30M [facility] Rx#: [id number] Anidulafungin 100 mg In 100 Sodium Chloride 0.9% 100 ml @ 84 mls/hr IVPB DAILY [facility] Rx#:[id number] Ceftolozane/Tazobactam 0. 100 75 gm In Sodium Chloride 0.9% 100 ml @ 100 mls/hr IV Q8HR [facility] Rx#:[id number] Mvi, Adult No.4 with Vit 68 K 10 ml Trace (Conc-1Ml/ Dose) 1 ml Potassium Acetate 20 meq Calcium Gluconate 1 gm Magnesium Sulfate gm 0.5 gm Potassium Phosphate 10 mmol In Amino Acid 5%- D15w 1,000 ml @ 68 mls/hr IV .BY DURATION [facility] Rx#: [id number] Norepinephrine 32 mg In 67.710 169.193 Sodium Chloride 0.9% 218 ml @ 0.5 MCG/KG/MIN 25. 547 mls/hr IV .Q9H48M [facility] Rx#:[id number] Potassium Acetate 20 meq 734 1092.3333 Calcium Gluconate 1 gm Magnesium Sulfate gm 0.5 gm Potassium Phosphate 10 mmol In Amino Acid 5%- D15w 1,000 ml @ 68 mls/hr IV .BY DURATION [facility] Rx#: [id number] Potassium Chloride 20 meq 300 In Water For Injection 1 100ml.bag @ 50 mls/hr IVPB Q2H [facility] Rx#: [id number] Sodium Chloride 0.9% 1, 1000 000 ml @ 999 mls/hr IV . Q1H1M [facility] Rx#:[id number] Sodium Chloride 0.9% 1, 2000 000 ml @ 999 mls/hr IV . Q1H1M [facility] Rx#:[id number] Vasopressin 60 unit In 121.89 Sodium Chloride 0.9% 150 ml @ 0.04 UNITS/MIN 6.12 mls/hr IV .Q24H [facility] Rx#: [id number] Oral 150 Blood Product 620 Rc As-1 Unit 310 [id number] Other 50 Rc As-1 Unit 50 [id number] Output: Gastric Drainage 450 Urine 560 55 4 Stool 800 200 Other: Voiding Method Indwelling Catheter Indwelling Catheter ABP, PAP, CO, CI - Last Documented Arterial Blood Pressure 102/45 - Exam GENERAL DESCRIPTION: An elderly female intubated on the vent RESPIRATORY SYSTEM: Unlabored breathing , decreased breath sounds at bases HEART: S1 S2 regular rate and rhythm , ABDOMEN: Soft , abdominal distention EXTREMITIES: Lower extremity swelling no redness - Labs CBC & Chem 7: 08/20/22 05:43 08/20/22 05:43 Labs: Abnormal Lab Results - Last 24 Hours (Table) 08/19/22 08/19/22 08/19/22 Range/Units 05:10 12:05 12:33 WBC (3.8-10.6) k/uL RBC (3.80-5.40) m/uL Hgb (11.4-16.0) gm/dL Hct (34.0-46.0) % MCHC (31.0-37.0) g/dL RDW (11.5-15.5) % ABG pH (7.35-7.45) ABG pO2 (83-108) mmHg ABG HCO3 (21-25) mmol/L ABG Total CO2 (19-24) mmol/L ABG O2 Saturation (94-97) % Chloride (98-107) mmol/L Carbon Dioxide (22-30) mmol/L BUN (7-17) mg/dL Creatinine (0.52-1.04) mg/dL Glucose (74-99) mg/dL POC Glucose (mg/dL) 211 H (70-110) mg/dL Calcium (8.4-10.2) mg/dL AST (14-36) U/L Alkaline Phosphatase (38-126) U/L C-Reactive Protein 36.1 H (<1.0) mg/dL Total Protein (6.3-8.2) g/dL Albumin (3.5-5.0) g/dL Crossmatch See Detail 08/19/22 08/19/22 08/20/22 Range/Units 17:58 23:46 05:40 WBC (3.8-10.6) k/uL RBC (3.80-5.40) m/uL Hgb (11.4-16.0) gm/dL Hct (34.0-46.0) % MCHC (31.0-37.0) g/dL RDW (11.5-15.5) % ABG pH 7.20 L (7.35-7.45) ABG pO2 76 L (83-108) mmHg ABG HCO3 17 L (21-25) mmol/L ABG Total CO2 18 L (19-24) mmol/L ABG O2 Saturation 92.4 L (94-97) % Chloride (98-107) mmol/L Carbon Dioxide (22-30) mmol/L BUN (7-17) mg/dL Creatinine (0.52-1.04) mg/dL Glucose (74-99) mg/dL POC Glucose (mg/dL) 193 H 260 H (70-110) mg/dL Calcium (8.4-10.2) mg/dL AST (14-36) U/L Alkaline Phosphatase (38-126) U/L C-Reactive Protein (<1.0) mg/dL Total Protein (6.3-8.2) g/dL Albumin (3.5-5.0) g/dL Crossmatch 08/20/22 08/20/22 08/20/22 Range/Units 05:43 05:43 05:44 WBC 26.6 H (3.8-10.6) k/uL RBC 3.23 L (3.80-5.40) m/uL Hgb 8.7 L D (11.4-16.0) gm/dL Hct 29.8 L (34.0-46.0) % MCHC 29.2 L (31.0-37.0) g/dL RDW 17.2 H (11.5-15.5) % ABG pH (7.35-7.45) ABG pO2 (83-108) mmHg ABG HCO3 (21-25) mmol/L ABG Total CO2 (19-24) mmol/L ABG O2 Saturation (94-97) % Chloride 118 H (98-107) mmol/L Carbon Dioxide 17 L (22-30) mmol/L BUN 67 H (7-17) mg/dL Creatinine 1.44 H (0.52-1.04) mg/dL Glucose 253 H (74-99) mg/dL POC Glucose (mg/dL) 290 H (70-110) mg/dL Calcium 6.7 L (8.4-10.2) mg/dL AST 38 H (14-36) U/L Alkaline Phosphatase 205 H (38-126) U/L C-Reactive Protein (<1.0) mg/dL Total Protein 3.9 L (6.3-8.2) g/dL Albumin 1.4 L (3.5-5.0) g/dL Crossmatch Microbiology - Last 24 Hours (Table) 08/19/22 18:00 Stool Culture - Preliminary Stool 08/14/22 15:00 Blood Culture - Preliminary Blood No Growth after 120 hours Assessment and Plan (1) Sepsis Current Visit: Yes Status: Acute Code(s): A41.9 - SEPSIS, UNSPECIFIED ORGANISM SNOMED Code(s): 14248839 (2) UTI (urinary tract infection) Current Visit: No Status: Acute Code(s): N39.0 - URINARY TRACT INFECTION, SITE NOT SPECIFIED SNOMED Code(s): 81901070 Plan: 1patient with sepsis/septic shock in this patient is in the hospital with syncopal episode of weakness patient is now intubated on the vent and requiring high dose pressor support to maintain her blood pressure, the patient is growing gram-negative bacilli in the blood could be related to the urine as she is growing gram-negative as well as enterococcus in the urine versus related to the right lower lobe pneumonia and possible abdominal source 2 urine culture did grew drug resistant Pseudomonas , blood culture is growing gram-negative which has been identified as anaerobic gram-negative bacilli, and repeat blood culture is growing yeast likely GI source, 3 patient did have worsening of her clinical condition with a new fever also noticed to have some abdominal distention and diarrhea, high clinical suspicious for abdominal source, stool for C. diff is negative we will recommend obtaining a CT of abdominal pelvis with oral contrast only for better imaging patient is currently covered with broad-spectrum antibiotics in the form of Zerbexa , Eraxis and vancomycin was added last night to continued overall prognosis remain s to be guarded at the bedside questions and concerns were answered Time with Patient: Less than 30
[2022-08-20 20:15] LABS: Glucose,Whole Blood 163 mg/dL (70-110)
[2022-08-20] MEDS: levETIRAcetam IV 750 MG in SODIUM CHLORIDE 0.9% 100 ML IVPB SCH (20:30)
[2022-08-20] MEDS ORDERED: 1: MVI, ADULT NO.4 WITH VIT K 10 ML, TRACE (CONC-1ML/DOSE) 1 ML, POTASSIUM ACETATE 20 ME IV SCH ×7 (21:00)
[2022-08-20 23:41] LABS: Glucose,Whole Blood 124 mg/dL (70-110)
[2022-08-21] MEDS: CEFTOLOZANE/TAZOBACTAM 0.75 GM in SODIUM CHLORIDE 0.9% 100 ML IV SCH ×3 (00:16→16:33)
[2022-08-21] MEDS: ACETAMINOPHEN TAB 325 MG TAB PO PRN ×2 (00:33→21:24)
[2022-08-21] MEDS: IPRATROPIUM-ALBUTEROL 3 ML NEB INHALATION SCH ×7 (00:50→23:13)
[2022-08-21] MEDS: DEXTROSE 5% IN WATER 1,000 ML with SODIUM BICARB (1 MEQ/ML) 150 ML IV SCH ×2 (01:45→16:23)
[2022-08-21] MEDS ORDERED: LORazepam 2 MG/ML INJ IV STA ×3 (03:35→08:57)
[2022-08-21] MEDS ORDERED: LORazepam 2 MG/ML INJ ONE ×2 (03:36→03:44)
[2022-08-21] MEDS ORDERED: levETIRAcetam IV 500 MG in SODIUM CHLORIDE 0.9% 100 ML IVPB STA (03:45)
[2022-08-21 04:17] LABS: Glucose,Whole Blood 170 mg/dL (70-110)
[2022-08-21] MEDS: INSULIN ASPART (NovoLOG) 100 UNIT/ML VIAL SQ SCH ×6 (04:37→21:06)
[2022-08-21 04:52] LABS: Albumin 1.4 g/dL (3.5-5.0); Magnesium 1.9 mg/dL (1.6-2.3); Phosphorus 5.2 mg/dL (2.5-4.5); Potassium 4.9 mmol/L (3.5-5.1); Total Bilirubin 0.4 mg/dL (0.2-1.3)
[2022-08-21 04:54] LABS: Calcium 6.2 mg/dL (8.4-10.2)
[2022-08-21] MEDS: AMIODARONE 450 MG in DEXTROSE 5% IN WATER 250 ML IV SCH ×6 (05:16→20:18)
[2022-08-21] MEDS ORDERED: CALCIUM GLUCONATE IN NACL 2 GM in SALINE 1 100ML.BAG IVPB ONE (05:30)
[2022-08-21 06:15] LABS: ABG Base Excess -10.4 mmol/L; ABG HCO3 16 mmol/L (21-25); ABG Oxygen Saturation 95.7 % (94-97); ABG PCO2 34 mmHg (35-45); ABG PH 7.29 (7.35-7.45); ABG PO2 82 mmHg (83-108); ABG TCO2 17 mmol/L (19-24); Allen Test Performed? Yes
--- NOTE | 2022-08-21 07:49 | P.PN ---
Progress Note - Text Progress Note Date: 08/20/22 The patient had a computed tomography scan of the abdomen which showed evidence of large amount of free air. There is possible colonic perforation with pneumatosis of the colon. The patient remains critically ill. I discussed the computed tomography scan findings with the patient's daughter and over the phone. The patient is extremely high risk for any surgical intervention. Given her comorbidities her mortality is very high. I explained to them that there is most likely a colonic perforation. And usually a personal require surgical intervention. The patient's feels that she is not a good surgical candidate. Given her comorbidities I would tend to agree with him. The and daughter decided to do nonsurgical care only. Due to family decisions we will not form exploratory laparotomy. The patient will be medically managed in the ICU.
[2022-08-21] MEDS: FORMOTEROL FUMARATE 20 MCG/2 ML NEBU INHALATION SCH ×2 (08:18→19:06)
[2022-08-21] MEDS: BUDESONIDE 1 MG/2 ML NEBU INHALATION SCH ×2 (08:18→19:06)
[2022-08-21] MEDS: levETIRAcetam IV 750 MG in SODIUM CHLORIDE 0.9% 100 ML IVPB SCH ×2 (08:33→21:24)
[2022-08-21] MEDS: ANIDULAFUNGIN 100 MG in SODIUM CHLORIDE 0.9% 100 ML IVPB SCH (08:34)
[2022-08-21] MEDS: NOREPINEPHRINE 32 MG in SODIUM CHLORIDE 0.9% 218 ML IV SCH ×4 (08:34→22:10)
[2022-08-21] MEDS: TAMSULOSIN 0.4 MG CAP.ER.24H PO SCH (08:34)
[2022-08-21] MEDS: polyethylene glycoL 3350 17 GM POWD.PACK PO SCH ×2 (08:34→21:24)
[2022-08-21] MEDS: INSULIN DETEMIR (LEVEMIR) 100 UNIT/ML SYR SQ SCH (08:34)
[2022-08-21] MEDS: PANTOPRAZOLE 40 MG/10 ML VIAL IVP SCH (08:34)
[2022-08-21] MEDS: CHLORHEXIDINE GLUCONATE 15 ML CUP MUCOUS MEM SCH ×2 (08:34→21:24)
[2022-08-21] MEDS ORDERED: LORazepam 2 MG/ML INJ IV PRN (08:39)
[2022-08-21] MEDS ORDERED: SODIUM BICARB 8.4% 50 ML SYR (1 MEQ/ML) IV STA (09:10)
[2022-08-21] MEDS ORDERED: FUROSEMIDE 10 MG/ML 10 ML VIAL IV STA (09:10)
[2022-08-21] MEDS ORDERED: ALBUMIN HUMAN 25% 50 ML in EMPTY BAG 1 BAG IVPB ONE (09:30)
--- NOTE | 2022-08-21 09:58 | P.PN ---
Subjective Patient is seen in follow-up for acute kidney injury. Renal function worse. Urine output 10-15 mL an hour. Intubated. Currently on Levophed and vasopressin. On bicarb drip. Recent blood culture positive for enterococcus. CAT scan showed pneumoperitoneum. On amiodarone drip for A. fib. Family present at bedside. Vital signs are stable. On vasopressor support. General: Resting in bed. HEENT: Intubated. LUNGS: Breath sounds decreased. HEART: Irregular rate and rhythm. ABDOMEN: Distention noted. EXTREMITITES: 1+ edema. Objective - Vital Signs Vital signs: Vital Signs Temp 100.3 F H 08/21/22 08:00 Pulse 146 H 08/21/22 09:00 Resp 42 H 08/21/22 09:00 BP 99/52 08/19/22 16:39 Pulse Ox 91 L 08/21/22 09:00 FiO2 40 08/21/22 08:19 Intake & Output 08/20/22 08/21/22 08/21/22 18:59 06:59 18:59 Intake Total 2066.730 1117.906 369 Output Total 69 75 30 Balance 1964.119 6057.906 339 Weight 130 kg Intake: IV 261 266 69 0.9% @ KVO 160 230 60 Potassium Acetate 20 meq 68 Calcium Gluconate 1 gm Magnesium Sulfate gm 0.5 gm Potassium Phosphate 10 mmol In Amino Acid 5%- D15w 1,000 ml @ 68 mls/hr IV .BY DURATION [facility] Rx#: [id number] Pressure Bag 33 36 9 Intake, IV Titration 1205.730 771.906 300 Amount Amiodarone 450 mg In 228.887 496.664 Dextrose 5% in Water 250 ml @ 1 MG/MIN 33.333 mls/ hr IV .Q7H30M [facility] Rx#: [id number] Anidulafungin 100 mg In 100 100 Sodium Chloride 0.9% 100 ml @ 84 mls/hr IVPB DAILY [facility] Rx#:[id number] Ceftolozane/Tazobactam 0. 200 75 gm In Sodium Chloride 0.9% 100 ml @ 100 mls/hr IV Q8HR [facility] Rx#:[id number] Lacosamide IV 100 mg In 100 Sodium Chloride 0.9% 50 ml @ 100 mls/hr IVPB BID [facility] Rx#:[id number] Magnesium Sulfate-D5w Pmx 100 1 gm In Dextrose/Water 1 100ml.bag @ 100 mls/hr IVPB ONCE [facility] Rx#: [id number] Norepinephrine 32 mg In 89.843 275.242 Sodium Chloride 0.9% 218 ml @ 0.5 MCG/KG/MIN 25. 547 mls/hr IV .Q9H48M [facility] Rx#:[id number] Vancomycin 2,000 mg In 334 Sodium Chloride 0.9% 500 ml 500 ml @ 167 mls/hr IVPB [facility]CE [facility] Rx#: [id number] Vasopressin 60 unit In 153 Sodium Chloride 0.9% 150 ml @ 0.04 UNITS/MIN 6.12 mls/hr IV .Q24H [facility] Rx#: [id number] levETIRAcetam IV 750 mg 100 In Sodium Chloride 0.9% 100 ml @ 400 mls/hr IVPB Q12HR [facility] Rx#:[id number] Other 600 80 Output: Urine 19 75 30 Emesis 50 Other: Voiding Method Indwelling Catheter Indwelling Catheter Indwelling Catheter ABP, PAP, CO, CI - Last Documented Arterial Blood Pressure 105/44 - Labs CBC & Chem 7: 08/20/22 05:43 08/21/22 04:15 Labs: Abnormal Lab Results - Last 24 Hours (Table) 08/20/22 08/20/22 08/20/22 Range/Units 11:29 13:41 14:05 ABG pH 7.22 L (7.35-7.45) ABG pCO2 (35-45) mmHg ABG pO2 399 H (83-108) mmHg ABG HCO3 17 L (21-25) mmol/L ABG Total CO2 18 L (19-24) mmol/L ABG O2 Saturation 99.7 H (94-97) % Chloride (98-107) mmol/L Carbon Dioxide (22-30) mmol/L BUN (7-17) mg/dL Creatinine (0.52-1.04) mg/dL Glucose (74-99) mg/dL POC Glucose (mg/dL) 240 H 201 H (70-110) mg/dL Calcium (8.4-10.2) mg/dL Phosphorus (2.5-4.5) mg/dL AST (14-36) U/L Alkaline Phosphatase (38-126) U/L Ammonia (<30) umol/L Total Protein (6.3-8.2) g/dL Albumin (3.5-5.0) g/dL 08/20/22 08/20/22 08/20/22 Range/Units 14:57 17:50 20:13 ABG pH (7.35-7.45) ABG pCO2 (35-45) mmHg ABG pO2 (83-108) mmHg ABG HCO3 (21-25) mmol/L ABG Total CO2 (19-24) mmol/L ABG O2 Saturation (94-97) % Chloride (98-107) mmol/L Carbon Dioxide (22-30) mmol/L BUN (7-17) mg/dL Creatinine (0.52-1.04) mg/dL Glucose (74-99) mg/dL POC Glucose (mg/dL) 146 H 163 H (70-110) mg/dL Calcium (8.4-10.2) mg/dL Phosphorus (2.5-4.5) mg/dL AST (14-36) U/L Alkaline Phosphatase (38-126) U/L Ammonia 214 H (<30) umol/L Total Protein (6.3-8.2) g/dL Albumin (3.5-5.0) g/dL 08/20/22 08/21/22 08/21/22 Range/Units 23:40 04:15 04:15 ABG pH (7.35-7.45) ABG pCO2 (35-45) mmHg ABG pO2 (83-108) mmHg ABG HCO3 (21-25) mmol/L ABG Total CO2 (19-24) mmol/L ABG O2 Saturation (94-97) % Chloride 114 H (98-107) mmol/L Carbon Dioxide 16 L (22-30) mmol/L BUN 76 H (7-17) mg/dL Creatinine 1.73 H (0.52-1.04) mg/dL Glucose 153 H (74-99) mg/dL POC Glucose (mg/dL) 124 H 170 H (70-110) mg/dL Calcium 6.2 L* (8.4-10.2) mg/dL Phosphorus 5.2 H (2.5-4.5) mg/dL AST 53 H (14-36) U/L Alkaline Phosphatase 203 H (38-126) U/L Ammonia (<30) umol/L Total Protein 4.0 L (6.3-8.2) g/dL Albumin 1.4 L (3.5-5.0) g/dL 08/21/22 Range/Units 06:11 ABG pH 7.29 L (7.35-7.45) ABG pCO2 34 L (35-45) mmHg ABG pO2 82 L (83-108) mmHg ABG HCO3 16 L (21-25) mmol/L ABG Total CO2 17 L (19-24) mmol/L ABG O2 Saturation (94-97) % Chloride (98-107) mmol/L Carbon Dioxide (22-30) mmol/L BUN (7-17) mg/dL Creatinine (0.52-1.04) mg/dL Glucose (74-99) mg/dL POC Glucose (mg/dL) (70-110) mg/dL Calcium (8.4-10.2) mg/dL Phosphorus (2.5-4.5) mg/dL AST (14-36) U/L Alkaline Phosphatase (38-126) U/L Ammonia (<30) umol/L Total Protein (6.3-8.2) g/dL Albumin (3.5-5.0) g/dL Microbiology - Last 24 Hours (Table) 08/19/22 22:00 Blood Culture Gram Stain - Preliminary Blood Blood Culture - Preliminary Enterococcus faecium 08/19/22 21:07 Gram Stain - Preliminary Sputum Sputum Culture - Preliminary 08/19/22 22:00 Blood Culture - Final Blood 08/14/22 15:00 Blood Culture - Final Blood No Growth after 144 hours Assessment and Plan Plan: Assessment: 1. Acute kidney injury secondary to ATN secondary to septic shock. Baseline creatinine near 0.8 from June 2022 - peaked at 2.77 this admission - 1.73 today. Urine output 10-15 mL an hour. No hydronephrosis noted on CAT scan. 2. Septic shock secondary to UTI, fungemia and bacteremia. CAT scan done in 08/20/2022 showed pneumoperitoneum. On antibiotics/antifungal and vasopressor support. 3. Metabolic acidosis secondary to acute kidney injury. On bicarb drip. 4. Hypokalemia from poor intake and diuresis. Improved. 5. Acute hypoxic respiratory failure. 6. A. fib with RVR. On amiodarone drip. Cardiology following. 8. Hypernatremia from lack of oral water intake. Status post water flushes. Improved. 9. Hypocalcemia secondary to acute kidney injury. Corrected calcium is normal. Plan: Maintain bicarb drip. 25 g IV albumin once. Repeat lasix 80 mg IV once today after albumin infused. Wean FiO2 and vasopressors. Avoid nephrotoxins. Continue to monitor renal function and urine output. Discussed in detail patient's grave condition with family present at bedside. Discussed need for renal replacement therapy however patient remains hemo dynamically to unstable at this time. Monitor vancomycin levels. Dose to be adjusted for renal function.
[2022-08-21] MEDS ORDERED: LACOSAMIDE IV 100 MG in SODIUM CHLORIDE 0.9% 50 ML IVPB SCH (10:00)
[2022-08-21] MEDS ORDERED: DAPTOmycin 500 MG in SODIUM CHLORIDE 0.9% 50 ML IVPB SCH (11:00)
[2022-08-21 11:09] LABS: Glucose,Whole Blood 195 mg/dL (70-110)
--- NOTE | 2022-08-21 12:14 | P.PN ---
Subjective Progress Note Date: 08/21/22 Patient initially seen by Dr. Edouard Peres. Please refer to his note for details. Patient is an 87-year-old female with altered mental status. Patient has septic encephalopathy. Patient had a seizure-like activity yesterday at 1:15 PM with head jerking and left arm jerking. Patient was given Ativan 4 mg, and the seizure-like stopped. Patient was given a loading dose of Keppra 1000 mg IV and then maintained on 500 mg twice a day. Patient had again seizure-like activity at 3 AM lasted for 45 minutes and then 5 AM and patient was given another loading dose of 500 mg Keppra. Nurse called me today at around 7:30 AM. It lasted for 20-30 minutes. Patient was again given Valium 4 mg in the seizure- like activity resolved. Patient was started on Vimpat 100 mg twice a day IV PB. EEG was performed today, which was abnormal sleep EEG due to background slowing of moderate degree. Some sharply contoured waves were seen in the left parietal region. No clear-cut epileptiform activity was seen. Objective - Vital Signs Vital signs: Vital Signs Temp 100.3 F H 08/21/22 08:00 Pulse 138 H 08/21/22 10:00 Resp 42 H 08/21/22 10:00 BP 99/52 08/19/22 16:39 Pulse Ox 94 L 08/21/22 10:00 FiO2 40 08/21/22 08:19 Intake & Output 08/20/22 08/21/22 08/21/22 18:59 06:59 18:59 Intake Total 2066.730 8906.401 6025 Output Total 69 75 0 Balance 1478.862 5551.906 1015 Weight 130 kg Intake: IV 261 266 115 0.9% @ KVO 160 230 100 Potassium Acetate 20 meq 68 Calcium Gluconate 1 gm Magnesium Sulfate gm 0.5 gm Potassium Phosphate 10 mmol In Amino Acid 5%- D15w 1,000 ml @ 68 mls/hr IV .BY DURATION [facility] Rx#: [id number] Pressure Bag 33 36 15 Intake, IV Titration 1205.730 771.906 900 Amount Amiodarone 450 mg In 228.887 496.664 Dextrose 5% in Water 250 ml @ 1 MG/MIN 33.333 mls/ hr IV .Q7H30M [facility] Rx#: [id number] Anidulafungin 100 mg In 100 300 Sodium Chloride 0.9% 100 ml @ 84 mls/hr IVPB DAILY [facility] Rx#:[id number] Ceftolozane/Tazobactam 0. 200 75 gm In Sodium Chloride 0.9% 100 ml @ 100 mls/hr IV Q8HR [facility] Rx#:[id number] Lacosamide IV 100 mg In 300 Sodium Chloride 0.9% 50 ml @ 100 mls/hr IVPB BID [facility] Rx#:[id number] Magnesium Sulfate-D5w Pmx 100 1 gm In Dextrose/Water 1 100ml.bag @ 100 mls/hr IVPB [facility]CE [facility] Rx#: [id number] Norepinephrine 32 mg In 89.843 275.242 Sodium Chloride 0.9% 218 ml @ 0.5 MCG/KG/MIN 25. 547 mls/hr IV .Q9H48M [facility] Rx#:[id number] Vancomycin 2,000 mg In 334 Sodium Chloride 0.9% 500 ml 500 ml @ 167 mls/hr IVPB [facility]CE [facility] Rx#: [id number] Vasopressin 60 unit In 153 Sodium Chloride 0.9% 150 ml @ 0.04 UNITS/MIN 6.12 mls/hr IV .Q24H [facility] Rx#: [id number] levETIRAcetam IV 750 mg 300 In Sodium Chloride 0.9% 100 ml @ 400 mls/hr IVPB Q12HR [facility] Rx#:[id number] Other 600 80 Output: Urine 19 75 0 Emesis 50 Other: Voiding Method Indwelling Catheter Indwelling Catheter Indwelling Catheter ABP, PAP, CO, CI - Last Documented Arterial Blood Pressure 99/44 - Exam Patient is an elderly female, who is comatose. Patient is not on any sedation. Sedation discontinued since 08/16/2022. Patient does not respond to painful stimuli or calling out loudly. No seizure-like activity noticed. Her pupils are equal, round and reacting. Oculocephalics are minimally present. Corneas were slightly present. Per nurse report, patient does not have gag or cough. Patient is on pressors. Reflexes are almost absent. Patient has significant peripheral edema. Patient is slightly cyanotic. - Labs CBC & Chem 7: 08/22/22 05:10 08/22/22 05:10 Labs: Abnormal Lab Results - Last 24 Hours (Table) 08/20/22 08/20/22 08/20/22 Range/Units 13:41 14:05 14:57 ABG pH 7.22 L (7.35-7.45) ABG pCO2 (35-45) mmHg ABG pO2 399 H (83-108) mmHg ABG HCO3 17 L (21-25) mmol/L ABG Total CO2 18 L (19-24) mmol/L ABG O2 Saturation 99.7 H (94-97) % Chloride (98-107) mmol/L Carbon Dioxide (22-30) mmol/L BUN (7-17) mg/dL Creatinine (0.52-1.04) mg/dL Glucose (74-99) mg/dL POC Glucose (mg/dL) 201 H (70-110) mg/dL Calcium (8.4-10.2) mg/dL Phosphorus (2.5-4.5) mg/dL AST (14-36) U/L Alkaline Phosphatase (38-126) U/L Ammonia 214 H (<30) umol/L Total Protein (6.3-8.2) g/dL Albumin (3.5-5.0) g/dL 08/20/22 08/20/22 08/20/22 Range/Units 17:50 20:13 23:40 ABG pH (7.35-7.45) ABG pCO2 (35-45) mmHg ABG pO2 (83-108) mmHg ABG HCO3 (21-25) mmol/L ABG Total CO2 (19-24) mmol/L ABG O2 Saturation (94-97) % Chloride (98-107) mmol/L Carbon Dioxide (22-30) mmol/L BUN (7-17) mg/dL Creatinine (0.52-1.04) mg/dL Glucose (74-99) mg/dL POC Glucose (mg/dL) 146 H 163 H 124 H (70-110) mg/dL Calcium (8.4-10.2) mg/dL Phosphorus (2.5-4.5) mg/dL AST (14-36) U/L Alkaline Phosphatase (38-126) U/L Ammonia (<30) umol/L Total Protein (6.3-8.2) g/dL Albumin (3.5-5.0) g/dL 08/21/22 08/21/22 08/21/22 Range/Units 04:15 04:15 06:11 ABG pH 7.29 L (7.35-7.45) ABG pCO2 34 L (35-45) mmHg ABG pO2 82 L (83-108) mmHg ABG HCO3 16 L (21-25) mmol/L ABG Total CO2 17 L (19-24) mmol/L ABG O2 Saturation (94-97) % Chloride 114 H (98-107) mmol/L Carbon Dioxide 16 L (22-30) mmol/L BUN 76 H (7-17) mg/dL Creatinine 1.73 H (0.52-1.04) mg/dL Glucose 153 H (74-99) mg/dL POC Glucose (mg/dL) 170 H (70-110) mg/dL Calcium 6.2 L* (8.4-10.2) mg/dL Phosphorus 5.2 H (2.5-4.5) mg/dL AST 53 H (14-36) U/L Alkaline Phosphatase 203 H (38-126) U/L Ammonia (<30) umol/L Total Protein 4.0 L (6.3-8.2) g/dL Albumin 1.4 L (3.5-5.0) g/dL 08/21/22 Range/Units 11:06 ABG pH (7.35-7.45) ABG pCO2 (35-45) mmHg ABG pO2 (83-108) mmHg ABG HCO3 (21-25) mmol/L ABG Total CO2 (19-24) mmol/L ABG O2 Saturation (94-97) % Chloride (98-107) mmol/L Carbon Dioxide (22-30) mmol/L BUN (7-17) mg/dL Creatinine (0.52-1.04) mg/dL Glucose (74-99) mg/dL POC Glucose (mg/dL) 195 H (70-110) mg/dL Calcium (8.4-10.2) mg/dL Phosphorus (2.5-4.5) mg/dL AST (14-36) U/L Alkaline Phosphatase (38-126) U/L Ammonia (<30) umol/L Total Protein (6.3-8.2) g/dL Albumin (3.5-5.0) g/dL Microbiology - Last 24 Hours (Table) 08/19/22 22:00 Blood Culture Gram Stain - Preliminary Blood Blood Culture - Preliminary Enterococcus faecium 08/19/22 21:07 Gram Stain - Preliminary Sputum Sputum Culture - Preliminary 08/19/22 22:00 Blood Culture - Final Blood 08/14/22 15:00 Blood Culture - Final Blood No Growth after 144 hours Assessment and Plan Assessment: Altered mental status due to primarily septic encephalopathy. Also has some component of metabolic encephalopathy with worsening of the kidney function. Has been off sedation for 4 days. Probable perforated viscus with pneumoperitoneum. Septicemia, with high temperature, leukocytosis and blood culture positive with enterococcus faecium. Probable hepatic encephalopathy with elevated ammonia 214. Sepsis shock requiring pressor support and seems has urinary tract infection with urine culture positive for Enterococcus faecalis and Pseudomonas aeruginosa as well as systemic candidiasis Has worsening leukocytosis with continued to have fever due to her sepsis Atrial fibrillation on eliquis (which has hx of afib) Acute on chronic hypoxemic respiratory failure secondary selected diastolic con gestive heart failure requiring intubation mechanical ventilation Acute on chronic kidney disease trending down History of TIAs/stroke History of coronary artery disease with stent Hypertension Hyperlipidemia Diabetes mellitus Plan: * EEG was performed today, which was abnormal sleep EEG due to background slowing of moderate degree. Some sharply contoured waves were seen in the right and left parietal region, which did not appear clearly epileptiform in morphology. No electrographic seizure was recorded. * Patient was given 1 dose of Vimpat 100 mg empirically. After examination, and EEG, it appears patient's tremors could be related to chills/rigors from septicemia. Doubt seizures. We will stop Vimpat, continue Keppra 750-twice a day empirically. * Discontinue Ativan. * CT of the head revealed generalized cerebral atrophy without acute intracranial process. I personally reviewed CT head, agree with the findings. * Ammonia 214 (normal <30). IM/critical care to address. * CT abdomen revealed possibility of perforated viscus. Surgery on board. * Patient is on pressor support and recommend avoiding hypotensive episode which can the results in watershed infarcts * ID team is on board * We'll defer the rest of medical management to primary and ICU team * The patient condition is very critical. * Plan discussed with the patient's daughter and patient's who were at bedside and her nurse. Time with Patient: Greater than 30
--- NOTE | 2022-08-21 13:30 | P.PN ---
Subjective Progress Note Date: 08/21/22 Principal diagnosis: Sepsis/septic shock Patient is a 87-year-old female with multiple comorbidities presented to the hospital with a syncopal episode weakness subsequently hypotension, sepsis requiring transfer to the ICU and intubation on the vent. She patient did have a CT of abdominal pelvis completed on 08/20/2022 with evidence of pneumoperitoneum Gen. surgery discussed with the family currently being treated medically On today's evaluation that is 08/21/2022, the patient fever pattern has improved with a temperature of 100.6F this morning, the patient is currently requiring requiring max pressor support to maintain her blood pressure per the nursing staff, the patient FiO2 is currently stable at 40 %, no significant purulent secretions through the ET , patient did have NG to suction and the patient is currently on TPN Objective - Vital Signs Vital signs: Vital Signs Temp 100.3 F H 08/21/22 08:00 Pulse 146 H 08/21/22 09:00 Resp 42 H 08/21/22 09:00 BP 99/52 08/19/22 16:39 Pulse Ox 91 L 08/21/22 09:00 FiO2 40 08/21/22 08:19 Intake & Output 08/20/22 08/21/22 08/21/22 18:59 06:59 18:59 Intake Total 2066.730 1117.906 369 Output Total 69 75 30 Balance 4996.481 6451.906 339 Weight 130 kg Intake: IV 261 266 69 0.9% @ KVO 160 230 60 Potassium Acetate 20 meq 68 Calcium Gluconate 1 gm Magnesium Sulfate gm 0.5 gm Potassium Phosphate 10 mmol In Amino Acid 5%- D15w 1,000 ml @ 68 mls/hr IV .BY DURATION [facility] Rx#: [id number] Pressure Bag 33 36 9 Intake, IV Titration 1205.730 771.906 300 Amount Amiodarone 450 mg In 228.887 496.664 Dextrose 5% in Water 250 ml @ 1 MG/MIN 33.333 mls/ hr IV .Q7H30M [facility] Rx#: [id number] Anidulafungin 100 mg In 100 100 Sodium Chloride 0.9% 100 ml @ 84 mls/hr IVPB DAILY [facility] Rx#:[id number] Ceftolozane/Tazobactam 0. 200 75 gm In Sodium Chloride 0.9% 100 ml @ 100 mls/hr IV Q8HR [facility] Rx#:[id number] Lacosamide IV 100 mg In 100 Sodium Chloride 0.9% 50 ml @ 100 mls/hr IVPB BID [facility] Rx#:[id number] Magnesium Sulfate-D5w Pmx 100 1 gm In Dextrose/Water 1 100ml.bag @ 100 mls/hr IVPB ONCE ONE Rx#: [id number] Norepinephrine 32 mg In 89.843 275.242 Sodium Chloride 0.9% 218 ml @ 0.5 MCG/KG/MIN 25. 547 mls/hr IV .Q9H48M [facility] Rx#:[id number] Vancomycin 2,000 mg In 334 Sodium Chloride 0.9% 500 ml 500 ml @ 167 mls/hr IVPB ONCE STA Rx#: [id number] Vasopressin 60 unit In 153 Sodium Chloride 0.9% 150 ml @ 0.04 UNITS/MIN 6.12 mls/hr IV .Q24H [facility] Rx#: [id number] levETIRAcetam IV 750 mg 100 In Sodium Chloride 0.9% 100 ml @ 400 mls/hr IVPB Q12HR [facility] Rx#:[id number] Other 600 80 Output: Urine 19 75 30 Emesis 50 Other: Voiding Method Indwelling Catheter Indwelling Catheter Indwelling Catheter ABP, PAP, CO, CI - Last Documented Arterial Blood Pressure 105/44 - Exam GENERAL DESCRIPTION: An elderly female intubated on the vent RESPIRATORY SYSTEM: Unlabored breathing , decreased breath sounds at bases HEART: S1 S2 regular rate and rhythm , ABDOMEN: Soft , abdominal distention EXTREMITIES: Lower extremity swelling no redness - Labs CBC & Chem 7: 08/20/22 05:43 08/21/22 04:15 Labs: Abnormal Lab Results - Last 24 Hours (Table) 08/20/22 08/20/22 08/20/22 Range/Units 11:29 13:41 14:05 ABG pH 7.22 L (7.35-7.45) ABG pCO2 (35-45) mmHg ABG pO2 399 H (83-108) mmHg ABG HCO3 17 L (21-25) mmol/L ABG Total CO2 18 L (19-24) mmol/L ABG O2 Saturation 99.7 H (94-97) % Chloride (98-107) mmol/L Carbon Dioxide (22-30) mmol/L BUN (7-17) mg/dL Creatinine (0.52-1.04) mg/dL Glucose (74-99) mg/dL POC Glucose (mg/dL) 240 H 201 H (70-110) mg/dL Calcium (8.4-10.2) mg/dL Phosphorus (2.5-4.5) mg/dL AST (14-36) U/L Alkaline Phosphatase (38-126) U/L Ammonia (<30) umol/L Total Protein (6.3-8.2) g/dL Albumin (3.5-5.0) g/dL 08/20/22 08/20/22 08/20/22 Range/Units 14:57 17:50 20:13 ABG pH (7.35-7.45) ABG pCO2 (35-45) mmHg ABG pO2 (83-108) mmHg ABG HCO3 (21-25) mmol/L ABG Total CO2 (19-24) mmol/L ABG O2 Saturation (94-97) % Chloride (98-107) mmol/L Carbon Dioxide (22-30) mmol/L BUN (7-17) mg/dL Creatinine (0.52-1.04) mg/dL Glucose (74-99) mg/dL POC Glucose (mg/dL) 146 H 163 H (70-110) mg/dL Calcium (8.4-10.2) mg/dL Phosphorus (2.5-4.5) mg/dL AST (14-36) U/L Alkaline Phosphatase (38-126) U/L Ammonia 214 H (<30) umol/L Total Protein (6.3-8.2) g/dL Albumin (3.5-5.0) g/dL 08/20/22 08/21/22 08/21/22 Range/Units 23:40 04:15 04:15 ABG pH (7.35-7.45) ABG pCO2 (35-45) mmHg ABG pO2 (83-108) mmHg ABG HCO3 (21-25) mmol/L ABG Total CO2 (19-24) mmol/L ABG O2 Saturation (94-97) % Chloride 114 H (98-107) mmol/L Carbon Dioxide 16 L (22-30) mmol/L BUN 76 H (7-17) mg/dL Creatinine 1.73 H (0.52-1.04) mg/dL Glucose 153 H (74-99) mg/dL POC Glucose (mg/dL) 124 H 170 H (70-110) mg/dL Calcium 6.2 L* (8.4-10.2) mg/dL Phosphorus 5.2 H (2.5-4.5) mg/dL AST 53 H (14-36) U/L Alkaline Phosphatase 203 H (38-126) U/L Ammonia (<30) umol/L Total Protein 4.0 L (6.3-8.2) g/dL Albumin 1.4 L (3.5-5.0) g/dL 08/21/22 Range/Units 06:11 ABG pH 7.29 L (7.35-7.45) ABG pCO2 34 L (35-45) mmHg ABG pO2 82 L (83-108) mmHg ABG HCO3 16 L (21-25) mmol/L ABG Total CO2 17 L (19-24) mmol/L ABG O2 Saturation (94-97) % Chloride (98-107) mmol/L Carbon Dioxide (22-30) mmol/L BUN (7-17) mg/dL Creatinine (0.52-1.04) mg/dL Glucose (74-99) mg/dL POC Glucose (mg/dL) (70-110) mg/dL Calcium (8.4-10.2) mg/dL Phosphorus (2.5-4.5) mg/dL AST (14-36) U/L Alkaline Phosphatase (38-126) U/L Ammonia (<30) umol/L Total Protein (6.3-8.2) g/dL Albumin (3.5-5.0) g/dL Microbiology - Last 24 Hours (Table) 08/19/22 22:00 Blood Culture Gram Stain - Preliminary Blood Blood Culture - Preliminary Enterococcus faecium 08/19/22 21:07 Gram Stain - Preliminary Sputum Sputum Culture - Preliminary 08/19/22 22:00 Blood Culture - Final Blood 08/14/22 15:00 Blood Culture - Final Blood No Growth after 144 hours Assessment and Plan (1) Sepsis Current Visit: Yes Status: Acute Code(s): A41.9 - SEPSIS, UNSPECIFIED ORGANISM SNOMED Code(s): 99203277 (2) UTI (urinary tract infection) Current Visit: No Status: Acute Code(s): N39.0 - URINARY TRACT INFECTION, SITE NOT SPECIFIED SNOMED Code(s): 23977523 Plan: 1patient with sepsis/septic shock in this patient is in the hospital with syncopal episode of weakness patient is now intubated on the vent and requiring high dose pressor support to maintain her blood pressure, the patient is growing gram-negative bacilli in the blood could be related to the urine as she is growing gram-negative as well as enterococcus in the urine versus related to the right lower lobe pneumonia and possible abdominal source 2 urine culture did grew drug resistant Pseudomonas , blood culture is growing gram-negative which has been identified as anaerobic gram-negative bacilli, and repeat blood culture is growing yeast likely GI source, 3 patient did have worsening of her clinical condition with a new fever also noticed to have some abdominal distention and diarrhea, high clinical suspicious for abdominal source, stool for C. diff is negative , CT of abdominal pelvis with evidence of pneumoperitoneum, patient considered high risk for any surgical procedure patient is currently covered with broad-spectrum antibiotics in the form of Zerbexa , Eraxis , blood culture now, may positive with VRE vancomycin discontinued to start the patient on daptomycin Family and the bedside their multiple questions and concerns were answered in Layman terms, I also talked to the daughter on the phone last night about her mother condition and antibiotic coverage Time with Patient: Less than 30
[2022-08-21 13:54] LABS: Anisocytosis Slight; HCT 28.9 % (34.0-46.0); HGB 8.2 gm/dL (11.4-16.0); Hypochromasia Marked; MCH 25.5 pg (25.0-35.0); MCHC 28.3 g/dL (31.0-37.0); MCV 90.2 fL (80.0-100.0); Mean Platelet Volume 10.2; Platelet Count 324 k/uL (150-450); Poikilocytosis Slight; RDW 17.5 % (11.5-15.5); WBC 17.8 k/uL (3.8-10.6)
--- NOTE | 2022-08-21 14:02 | P.PN ---
Subjective Progress Note Date: 08/21/22 H&P Date: 08/09/22 Chief Complaint: Shortness of breath,Altered mental statConstipation, syncope, hyperglycemia This is a pleasant 87-year-old female with past medical history of CAD, [place], stent placement, aortic stenosis ,chronic hypoxic respiratory failure,on 2 L nasal cannula ,Covid 06/22,COPD, former nicotine dependence, obstructive sleep apnea ,CVA/TIA, diabetes mellitus, hypertension, hyperlipidemia, hypothyroidism, recurrent UTIs,CKD III, urinary retention, anemia, bilateral peripheral neuropathy, gait dysfunction,utilizing walker, falls, morbid obesity-BMI 39.9 and multiple other medical issues brought in via ambulance, on BiPAP to the ER for change in level of consciousness, syncope, nausea, vomiting, hyperglycemia, constipation-on [place], shortness of breath, recently discharged from [facility] subacute rehab on 08/06/2022. Information being obtained from chart and daughter at bedside. Daughter reports they are unsure of her last bowel movement, possibly , 08/03. [facility] documented large bowel movement on 08/04 and 08/05. Reports yesterday blood sugars were running high in the 400s, patient developed nausea and vomiting, change in sensorium, passed out while on the toilet. Reports patient "coughs all the time, but has COPD", no knowledge of fevers, denies chills. Denies chest pain, palpitations, positive shortness of breath. Developed hypotension in the ER in addition to emesis, received fluid bolus .Chest x-ray reported right basilar infiltrate with persistent small right effusion, no overt failure. EKG reported sinus rhythm, troponin negative 1. KUB reported marked gastric distention, additional small bowel loops dilated, possibly retained debris within the rectum and sigmoid colon. 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 NG tube placed in the ER with 1200 MLS bilious output reported overnight. D-dimer elevated 4.73, CT angio chest reported no evidence of pulmonary embolism,more consolidation changes in the right lung base, rule out aspiration. ProBNP 426. UA reported many WBC clumps, 165 WBCs, large leukocytes, negative nitrates, culture pending. Afebrile, on admission temperature 96.7, currently 98.8. WBC 14.3. lactic acid 3.5, repeat level pending. Hemoglobin 10.2, platelets 4:15, a I's within normal limits, BUN 40, creatinine 1.5. BiPAP weaned off, currently requiring 6 L nasal cannula O2 to maintain O2 sats in the low 90s. 08/10/22 Continued to decline throughout the night requiring ICU admission, maintained on vasopressin, Levophed and bicarb drips. Received fluid boluses throughout the night. Lactic acid decreased to 2.1. Low urine output on Lasix IV push. BUN 81, creatinine 2.68. Hyperkalemic, received calcium, insulin, D50, sodium bicarbonate. Chest x-ray reporting stable bilateral lower lobe infiltrate and small effusion. Afebrile, T-max 99.7. Continues on Levaquin, WBC normalized today. Cefepime added to antibiotic regimen today. Preliminary Urine cultures reporting group D enterococcus 50-100,000 colonies and gram-negative bacilli 10 and 49,000 colonies. 07/03 Blood cultures reporting GNB. Hemoglobin 8.2, platelets 311. 08/11/2022 Vent dependent, FiO2 60%/+5 of PEEP. Chest x-ray reports stable, no change in bibasilar opacities, pleural effusion unchanged. Continues on the Levophed and vasopressin drips. Febrile to the night, T-max 102.4, WBC increased to 12.2. Lactic acid trended up during the night, received fluid boluses, currently at 3.2. Developed atrial fibrillation with RVR, bolused with amiodarone and currently on amiodarone drip. Urine culture reporting enterococcus faecalis and Pseudomonas aeruginosa.Films reviewed by general surgery, reporting sigmoid volvulus. Recommending conservative management. BUN 79, creatinine 2.74. Hyperglycemic. Hemoglobin 8.6, platelets 349. Anticoagulation remains on hold. 08/21/2022 remains vent dependent, FiO2 50%/+5 of PEEP. Maintained on high doses of levophed, vasopressin. Amiodarone and bicarb drips continue. Receiving IV albumin to be followed by Lasix. Worsening renal function. Staff reports no urine output 24 hours. Bicarb 16, BUN 76, creatinine 1.73. Repeat CT of abdomen and pelvis completed yesterday, reporting moderate volume pneumo peritoneum, suspected perforation of distal colonic bowel, extensive distal bowel pneumatosis. Surgery discussed findings with family, high risk for surgical intervention. Family decided against surgical intervention,but to continue with nonsurgical care. T-max 100.6. Maintained on Zerbaxa, Eraxis, daptomycin .Seizure-like activity reported yesterday afternoon, placed on Keppra, reoccurred in the tile designer hours 2. Brain CT reported no acute intracranial process .EEG completed, results pending. Objective - Vital Signs Vital signs: Vital Signs Temp 100.3 F H 08/21/22 12:00 Pulse 138 H 08/21/22 12:23 Resp 38 H 08/21/22 12:00 BP 99/52 08/19/22 16:39 Pulse Ox 97 08/21/22 12:00 FiO2 40 08/21/22 12:13 Intake & Output 08/20/22 08/21/22 08/21/22 18:59 06:59 18:59 Intake Total 2066.730 6814.315 0027 Output Total 69 75 0 Balance 5415.866 2312.906 1338 Weight 130 kg Intake: IV 261 266 138 0.9% @ KVO 160 230 120 Potassium Acetate 20 meq 68 Calcium Gluconate 1 gm Magnesium Sulfate gm 0.5 gm Potassium Phosphate 10 mmol In Amino Acid 5%- D15w 1,000 ml @ 68 mls/hr IV .BY DURATION [facility] Rx#: [id number] Pressure Bag 33 36 18 Intake, IV Titration 1205.730 682.209 2994 Amount Amiodarone 450 mg In 228.887 496.664 Dextrose 5% in Water 250 ml @ 1 MG/MIN 33.333 mls/ hr IV .Q7H30M [facility] Rx#: [id number] Anidulafungin 100 mg In 100 400 Sodium Chloride 0.9% 100 ml @ 84 mls/hr IVPB DAILY [facility] Rx#:[id number] Ceftolozane/Tazobactam 0. 200 75 gm In Sodium Chloride 0.9% 100 ml @ 100 mls/hr IV Q8HR [facility] Rx#:[id number] Lacosamide IV 100 mg In 400 Sodium Chloride 0.9% 50 ml @ 100 mls/hr IVPB BID [facility] Rx#:[id number] Magnesium Sulfate-D5w Pmx 100 1 gm In Dextrose/Water 1 100ml.bag @ 100 mls/hr IVPB ONCE ONE Rx#: [id number] Norepinephrine 32 mg In 89.843 275.242 Sodium Chloride 0.9% 218 ml @ 0.5 MCG/KG/MIN 25. 547 mls/hr IV .Q9H48M [facility] Rx#:[id number] Vancomycin 2,000 mg In 334 Sodium Chloride 0.9% 500 ml 500 ml @ 167 mls/hr IVPB ONCE STA Rx#: [id number] Vasopressin 60 unit In 153 Sodium Chloride 0.9% 150 ml @ 0.04 UNITS/MIN 6.12 mls/hr IV .Q24H [facility] Rx#: [id number] levETIRAcetam IV 750 mg 400 In Sodium Chloride 0.9% 100 ml @ 400 mls/hr IVPB Q12HR [facility] Rx#:[id number] Other 600 80 Output: Urine 19 75 0 Emesis 50 Other: Voiding Method Indwelling Catheter Indwelling Catheter Indwelling Catheter ABP, PAP, CO, CI - Last Documented Arterial Blood Pressure 113/47 - Exam GENERAL EXAM: on mechanical ventilation, off of sedation, no response to noxious stimuli. HEENT: Normocephalic.Normal reaction of pupils, equal size. NG present NECK: soft, unable to assess for JVD. LUNGS: Equal air entry with bilateral bases diminished, fine crackles in bilateral bases. CV: S1 and S2 normal with no audible murmur, irregular rhythm. Systolic murmur. ABDOMEN:Distended SKIN: No rashes, bilateral forearm skin tears with dressings clean dry and intac t,chronic sacral /buttock pressure ulcers-stage II. CENTRAL NERVOUS SYSTEM: Unable to assess, comotose on mechanical ventilation EXTREMITIES: Positive peripheral edema. - Labs CBC & Chem 7: 08/20/22 05:43 08/21/22 04:15 Labs: Abnormal Lab Results - Last 24 Hours (Table) 08/20/22 08/20/22 08/20/22 Range/Units 13:41 14:05 14:57 ABG pH 7.22 L (7.35-7.45) ABG pCO2 (35-45) mmHg ABG pO2 399 H (83-108) mmHg ABG HCO3 17 L (21-25) mmol/L ABG Total CO2 18 L (19-24) mmol/L ABG O2 Saturation 99.7 H (94-97) % Chloride (98-107) mmol/L Carbon Dioxide (22-30) mmol/L BUN (7-17) mg/dL Creatinine (0.52-1.04) mg/dL Glucose (74-99) mg/dL POC Glucose (mg/dL) 201 H (70-110) mg/dL Calcium (8.4-10.2) mg/dL Phosphorus (2.5-4.5) mg/dL AST (14-36) U/L Alkaline Phosphatase (38-126) U/L Ammonia 214 H (<30) umol/L Total Protein (6.3-8.2) g/dL Albumin (3.5-5.0) g/dL 08/20/22 08/20/22 08/20/22 Range/Units 17:50 20:13 23:40 ABG pH (7.35-7.45) ABG pCO2 (35-45) mmHg ABG pO2 (83-108) mmHg ABG HCO3 (21-25) mmol/L ABG Total CO2 (19-24) mmol/L ABG O2 Saturation (94-97) % Chloride (98-107) mmol/L Carbon Dioxide (22-30) mmol/L BUN (7-17) mg/dL Creatinine (0.52-1.04) mg/dL Glucose (74-99) mg/dL POC Glucose (mg/dL) 146 H 163 H 124 H (70-110) mg/dL Calcium (8.4-10.2) mg/dL Phosphorus (2.5-4.5) mg/dL AST (14-36) U/L Alkaline Phosphatase (38-126) U/L Ammonia (<30) umol/L Total Protein (6.3-8.2) g/dL Albumin (3.5-5.0) g/dL 08/21/22 08/21/22 08/21/22 Range/Units 04:15 04:15 06:11 ABG pH 7.29 L (7.35-7.45) ABG pCO2 34 L (35-45) mmHg ABG pO2 82 L (83-108) mmHg ABG HCO3 16 L (21-25) mmol/L ABG Total CO2 17 L (19-24) mmol/L ABG O2 Saturation (94-97) % Chloride 114 H (98-107) mmol/L Carbon Dioxide 16 L (22-30) mmol/L BUN 76 H (7-17) mg/dL Creatinine 1.73 H (0.52-1.04) mg/dL Glucose 153 H (74-99) mg/dL POC Glucose (mg/dL) 170 H (70-110) mg/dL Calcium 6.2 L* (8.4-10.2) mg/dL Phosphorus 5.2 H (2.5-4.5) mg/dL AST 53 H (14-36) U/L Alkaline Phosphatase 203 H (38-126) U/L Ammonia (<30) umol/L Total Protein 4.0 L (6.3-8.2) g/dL Albumin 1.4 L (3.5-5.0) g/dL 08/21/22 Range/Units 11:06 ABG pH (7.35-7.45) ABG pCO2 (35-45) mmHg ABG pO2 (83-108) mmHg ABG HCO3 (21-25) mmol/L ABG Total CO2 (19-24) mmol/L ABG O2 Saturation (94-97) % Chloride (98-107) mmol/L Carbon Dioxide (22-30) mmol/L BUN (7-17) mg/dL Creatinine (0.52-1.04) mg/dL Glucose (74-99) mg/dL POC Glucose (mg/dL) 195 H (70-110) mg/dL Calcium (8.4-10.2) mg/dL Phosphorus (2.5-4.5) mg/dL AST (14-36) U/L Alkaline Phosphatase (38-126) U/L Ammonia (<30) umol/L Total Protein (6.3-8.2) g/dL Albumin (3.5-5.0) g/dL Microbiology - Last 24 Hours (Table) 08/19/22 22:00 Blood Culture Gram Stain - Preliminary Blood Blood Culture - Preliminary Enterococcus faecium 08/19/22 21:07 Gram Stain - Preliminary Sputum Sputum Culture - Preliminary 08/19/22 22:00 Blood Culture - Final Blood 08/14/22 15:00 Blood Culture - Final Blood No Growth after 144 hours Assessment and Plan Assessment: Sepsis, septic shock secondary to acute enterococcus faecalis and Pseudomonas aeruginosa UTI, with acute bacteremia, anaerobic GNB, repeat blood culture growing yeast (in a patient with history of urinary retention, recurrent UTIs, most recently with Klebsiella pneumoniae and enterococcus cloacae.), abdominal source, and possibly pneumonia. Hypotension secondary to the above, pressor dependent Fevers Acute on chronic hypoxic respiratory failure, ventilator dependent, wears 2 L nasal cannula O2 ATC at home, related to possible acute chronic CHF exacerbation, diastolic dysfunction. Chronic changes of the right lower lobe and small right pleural effusion as per pulmonary Acute on CKD III, secondary to ATN related to the above Atrial fibrillation with RVR, on amiodarone drip In a patient with history of chronic atrial fibrillation Metabolic acidosis, on bicarb drip Altered mental status, Acute metabolic ,septic and hepatic encephalopathy secondary to the above. Abdominal pain, constipation, last bowel movement reported 08/05.Films reviewed by general surgery, reporting sigmoid volvulus. Continued clinical worsening;Probable perforated viscus with pneumoperitoneum reported per CT on 08/20/2022. Syncope, possibly vasovagal, multifactorial, secondary to all the above Lactic acidosis Leukocytosis, worsening Diabetes mellitus, family reports hyperglycemic at home, controlled IP, A1c 6. Recent COVID-19 infection, 06/22 COPD Valvular heart disease, moderate aortic stenosis, preserved LV function Chronic anemia Generalized weakness, gait dysfunction, multiple falls recently reported, recently discharged from [facility] subacute rehab. 08/06/22. History of CVA, TIA History of Hypertension Hyperlipidemia Hypothyroidism Morbid obesity, BMI 39.9 No code, no CPR, no reintubation Plan: Continue on current medication regime ,monitoring and symptomatic treatment. Multiple consults following ;ICU management as per digital project coordinator. Antibiotics as per infectious disease. Poor prognosis discussed further with spouse -spouse in agreement with CODE STATUS to be changed to no code,no CPR, no reintubation. The impression and plan of care has been dictated as directed. : I performed a history and examination of this patient, discussed the same with the dictator. I agree with the dictator's note ,documented as a scribe. Any additional findings or plans will be noted.
--- NOTE | 2022-08-21 14:53 | P.PN ---
Subjective Progress Note Date: 08/21/22 Principal diagnosis: Acute on chronic hypoxic respiratory failure secondary to acute diastolic congestive heart failure, and septic shock. With abdominal sepsis and bowel perforation. 08/20/2022, I'm seeing the patient for a follow-up. Since yesterday, the patient has taken a turn to the worse. As of yesterday, the patient started having episodes of fever with a T-max of 103.1. At the same time, the patient's blood pressure was getting more soft and the patient was becoming more hypotensive in the urine output dropped considerably. As such, the patient had to be placed on a higher dose of pressors. The patient was given a total of 2 L of IV fluids. Vancomycin was also added to the regimen as the patient is taking currently a combination of Zerbaxa and Eraxis. On today's evaluation, the patient is still off sedation. The patient is on a mechanical ventilator on assist control mode of mechanical ventilation rate of 28 with a tidal volume of 400 and a PEEP of 5 and FiO2 of 40%. The chest x-ray shows limited bibasilar pulmonary infiltrates. ET tube is in a good location. No signs of any consolidation or pulmonary edema. The blood gas shows a pH of 7.2 with a pCO2 of 33 and a pO2 of 76. As such, the patient has become progressively more acidotic. Hemodynamically, the patient has become more hypotensive and the patient is currently on a combination of vasopressin physiologic dose and a norepinephrine had to be brought up to 0.2 mcg/kg/m. Urine output is extremely low at this point in time. The white cell count has come up to 26.6 from 19.9 a nd the hemoglobin is at 8.7. Noted the patient was given units of packed RBC for a hemoglobin of 6.9 yesterday and hemoglobin is at 8.7 today. The patient has become also acidotic. Urine is at 67 with a creatinine of 1.4. Serum bicarb is at 17 and this is a non-anion gap metabolic acidosis. Sodium is at 141 with a potassium level of 4.7. LFTs are normal. The patient is receiving TPN through a midline in the left upper extremity at the rate of 68 mL an hour. She also has a triple-lumen catheter in the left subclavian. The patient is in a positive fluid balance. The patient is still febrile. The patient is stooling. The laxatives have been discontinued. She is currently has a fecal management system in Place and stool was also sent for C. diff.. The patient is unresponsive to any verbal or painful stimulation at this point in time and she's been off sedation for the past 48 hours. His obvious component of metabolic encephalopathy secondary to ovulation comorbidities. She remains on amiodarone drip at 1 mg/m. She remains in atrial fibrillation. She is on anticoagulation with Eliquis 5 mg by mouth twice a day. Reevaluated today on 08/21/2022, patient remains on the ventilator, intubated mechanically ventilated, on assist control rate 28, volume 400 FiO2 40% PEEP of 5. ABG showed a pO2 of 82 pCO2 34 pH of 7.29, patient was placed on bicarb drip earlier by nephrology. She is maximized on norepinephrine at 0.5 mcg/kg/m she is also on amiodarone 1 mg/m vasopressin at 0.[address] of the abdomen yesterday showed bowel perforation and pneumoperitoneum of blood is positive for enterococcus. Patient is atrial fibrillation with RVR. Family today is at bedside, and had a long discussion with the and the daughter, explained to them that her condition is basically extremely poor, and the patient will not make it considering her new finding of abdominal sepsis. They were made aware yesterday by the surgeon about her bowel perforation, the surgeon and the family felt that she is extremely high surgical risk, hence no surgery was done for her abdominal sepsis and bowel perforation. In the meantime the patient is maximized on pressors she is also on antibiotics, her WBC scan is 17.8 hemoglobin is 8.2 bicarb is 16 BUN is 76 creatinine 1.73. The primary care physician Dr. Hartman talk to the about her condition and he was able to change her CODE STATUS to DO NOT RESUSCITATE CODE STATUS. However the family is still not agreeable to consider comfort care measures. I even suggested stopping the presses and down the line consider comfort care but not yet at this point. Family does not seem to be very agreeable. Patient is on good course of antibiotics, which is also on antifungal therapy. Also on bronchodilators. Being followed by infectious disease and now she is on daptomycin, patient is also on Eraxis, and zerbaxa Objective - Vital Signs Vital signs: Vital Signs Temp 100.3 F H 08/21/22 12:00 Pulse 138 H 08/21/22 12:23 Resp 38 H 08/21/22 12:00 BP 99/52 08/19/22 16:39 Pulse Ox 97 08/21/22 12:00 FiO2 40 08/21/22 12:13 Intake & Output 08/20/22 08/21/22 08/21/22 18:59 06:59 18:59 Intake Total 2066.730 3100.462 8362 Output Total 69 75 0 Balance 1198.435 5023.906 1338 Weight 130 kg Intake: IV 261 266 138 0.9% @ KVO 160 230 120 Potassium Acetate 20 meq 68 Calcium Gluconate 1 gm Magnesium Sulfate gm 0.5 gm Potassium Phosphate 10 mmol In Amino Acid 5%- D15w 1,000 ml @ 68 mls/hr IV .BY D[facility] Rx#: [id number] Pressure Bag 33 36 18 Intake, IV Titration 1205.730 285.601 8841 Amount Amiodarone 450 mg In 228.887 496.664 Dextrose 5% in Water 250 ml @ 1 MG/MIN 33.333 mls/ hr IV .Q7H30M [facility] Rx#: [id number] Anidulafungin 100 mg In 100 400 Sodium Chloride 0.9% 100 ml @ 84 mls/hr IVPB DAILY [facility] Rx#:[id number] Ceftolozane/Tazobactam 0. 200 75 gm In Sodium Chloride 0.9% 100 ml @ 100 mls/hr IV Q8HR [facility] Rx#:[id number] Lacosamide IV 100 mg In 400 Sodium Chloride 0.9% 50 ml @ 100 mls/hr IVPB BID [facility] Rx#:[id number] Magnesium Sulfate-D5w Pmx 100 1 gm In Dextrose/Water 1 100ml.bag @ 100 mls/hr IVPB ONCE ONE Rx#: [id number] Norepinephrine 32 mg In 89.843 275.242 Sodium Chloride 0.9% 218 ml @ 0.5 MCG/KG/MIN 25. 547 mls/hr IV .Q9H48M [facility] Rx#:[id number] Vancomycin 2,000 mg In 334 Sodium Chloride 0.9% 500 ml 500 ml @ 167 mls/hr IVPB ONCE STA Rx#: [id number] Vasopressin 60 unit In 153 Sodium Chloride 0.9% 150 ml @ 0.04 UNITS/MIN 6.12 mls/hr IV .Q24H [facility] Rx#: [id number] levETIRAcetam IV 750 mg 400 In Sodium Chloride 0.9% 100 ml @ 400 mls/hr IVPB Q12HR [facility] Rx#:[id number] Other 600 80 Output: Urine 19 75 0 Emesis 50 Other: Voiding Method Indwelling Catheter Indwelling Catheter Indwelling Catheter ABP, PAP, CO, CI - Last Documented Arterial Blood Pressure 113/47 - Exam GENERAL EXAM: Intubated, sedated, 87-year-old morbidly obese female, sedated, not in distress intubated and mechanically ventilated HEAD: Normocephalic. EYES: Sluggish reaction of pupils, equal size. NOSE: Nasogastric tube secured in place. Clear with pink turbinates. THROAT: Oral endotracheal tube in place. NECK: No masses, no JVD. CHEST: No chest wall deformity. LUNGS: Equal air entry with crackles in the bilateral bases. CVS: S1 and S2 normal with no audible murmur, irregular rhythm. ABDOMEN: No hepatosplenomegaly, normal bowel sounds, no guarding or rigidity. SKIN: No rashes CENTRAL NERVOUS SYSTEM: Sedated, tone is normal in all 4 extremities. Could not assess. EXTREMITIES: There is 1-2+ peripheral edema. Changes of chronic venous stasis. No clubbing, no cyanosis. Peripheral pulses are intact. - Labs CBC & Chem 7: 08/21/22 04:15 08/21/22 04:15 Labs: Abnormal Lab Results - Last 24 Hours (Table) 08/20/22 08/20/22 08/20/22 Range/Units 14:57 17:50 20:13 WBC (3.8-10.6) k/uL RBC (3.80-5.40) m/uL Hgb (11.4-16.0) gm/dL Hct (34.0-46.0) % MCHC (31.0-37.0) g/dL RDW (11.5-15.5) % ABG pH (7.35-7.45) ABG pCO2 (35-45) mmHg ABG pO2 (83-108) mmHg ABG HCO3 (21-25) mmol/L ABG Total CO2 (19-24) mmol/L Chloride (98-107) mmol/L Carbon Dioxide (22-30) mmol/L BUN (7-17) mg/dL Creatinine (0.52-1.04) mg/dL Glucose (74-99) mg/dL POC Glucose (mg/dL) 146 H 163 H (70-110) mg/dL Calcium (8.4-10.2) mg/dL Phosphorus (2.5-4.5) mg/dL AST (14-36) U/L Alkaline Phosphatase (38-126) U/L Ammonia 214 H (<30) umol/L Total Protein (6.3-8.2) g/dL Albumin (3.5-5.0) g/dL 08/20/22 08/21/22 08/21/22 Range/Units 23:40 04:15 04:15 WBC (3.8-10.6) k/uL RBC (3.80-5.40) m/uL Hgb (11.4-16.0) gm/dL Hct (34.0-46.0) % MCHC (31.0-37.0) g/dL RDW (11.5-15.5) % ABG pH (7.35-7.45) ABG pCO2 (35-45) mmHg ABG pO2 (83-108) mmHg ABG HCO3 (21-25) mmol/L ABG Total CO2 (19-24) mmol/L Chloride 114 H (98-107) mmol/L Carbon Dioxide 16 L (22-30) mmol/L BUN 76 H (7-17) mg/dL Creatinine 1.73 H (0.52-1.04) mg/dL Glucose 153 H (74-99) mg/dL POC Glucose (mg/dL) 124 H 170 H (70-110) mg/dL Calcium 6.2 L* (8.4-10.2) mg/dL Phosphorus 5.2 H (2.5-4.5) mg/dL AST 53 H (14-36) U/L Alkaline Phosphatase 203 H (38-126) U/L Ammonia (<30) umol/L Total Protein 4.0 L (6.3-8.2) g/dL Albumin 1.4 L (3.5-5.0) g/dL 08/21/22 08/21/22 08/21/22 Range/Units 04:15 06:11 11:06 WBC 17.8 H (3.8-10.6) k/uL RBC 3.20 L (3.80-5.40) m/uL Hgb 8.2 L (11.4-16.0) gm/dL Hct 28.9 L (34.0-46.0) % MCHC 28.3 L (31.0-37.0) g/dL RDW 17.5 H (11.5-15.5) % ABG pH 7.29 L (7.35-7.45) ABG pCO2 34 L (35-45) mmHg ABG pO2 82 L (83-108) mmHg ABG HCO3 16 L (21-25) mmol/L ABG Total CO2 17 L (19-24) mmol/L Chloride (98-107) mmol/L Carbon Dioxide (22-30) mmol/L BUN (7-17) mg/dL Creatinine (0.52-1.04) mg/dL Glucose (74-99) mg/dL POC Glucose (mg/dL) 195 H (70-110) mg/dL Calcium (8.4-10.2) mg/dL Phosphorus (2.5-4.5) mg/dL AST (14-36) U/L Alkaline Phosphatase (38-126) U/L Ammonia (<30) umol/L Total Protein (6.3-8.2) g/dL Albumin (3.5-5.0) g/dL Microbiology - Last 24 Hours (Table) 08/19/22 22:00 Blood Culture Gram Stain - Preliminary Blood Blood Culture - Preliminary Enterococcus faecium 08/19/22 21:07 Gram Stain - Preliminary Sputum Sputum Culture - Preliminary 08/19/22 22:00 Blood Culture - Final Blood 08/14/22 15:00 Blood Culture - Final Blood No Growth after 144 hours Assessment and Plan Assessment: Impression: Acute on chronic hypoxic respiratory failure Acute on chronic diastolic congestive heart failure Abdominal sepsis and septic shock Anion gap metabolic acidosis Urinary tract infection secondary to Enterococcus faecalis and pseudomonas aeruginosa Systemic candidiasis with positive cultures for Ange. Anaerobic gram-negative bacteria in the blood Atrial fibrillation with RVR requiring amiodarone drip Acute on chronic kidney disease Recent history of COVID-19 infection History of valvular heart disease with aortic stenosis Acute on chronic anemia History of underlying COPD History of diastolic congestive heart failure Recommendation: Continue present supportive care measures Had a long discussion with the family at bedside including and daughter Discussed CODE STATUS and discussed seriously considering comfort care measures is not yet ready to proceed with comfort care measures but according to the admitting physician/Dr. Hartman he agreed to go to DO NOT RESUSCITATE CODE STATUS. Continue antibiotics. Continue ventilatory support Continue hemodynamic support Continue antifungal therapy Overall prognosis is extremely poor as a matter of fact this is almost medical futility situation at this point Patient is critically ill We will continue to follow Critical care time is over 30 minutes Time with Patient: Greater than 30
[2022-08-21 16:31] LABS: Glucose,Whole Blood 162 mg/dL (70-110)
--- NOTE | 2022-08-21 19:42 | PN ---
PROGRESS NOTE HISTORY OF PRESENT ILLNESS: Concepcion is an 87-year-old lady who is admitted to hospital with bowel obstruction and subsequently developed atrial fibrillation with rapid ventricular rate for which Cardiology has been consulted. She remains in atrial fibrillation with poorly controlled ventricular rate and is currently on intravenous amiodarone. She is hypotensive and requiring pressors. She is intubated on vent and currently having seizures and told by the nurse that she developed severe abdominal distention too last night and the CT scan showed perforation of the bowel with extensive pneumoperitoneum. PHYSICAL EXAMINATION: VITAL SIGNS: Heart rate is 130 beats per minute, blood pressure is 99/50, and respiratory rate is 20. CHEST: Reveals diminished air entry bilaterally. HEART: Reveals first and second heart sounds, irregular rhythm, no murmur. ABDOMEN: Distended. EXTREMITIES: Reveals bilateral 1+ edema. LABORATORY DATA: Blood gases show a pH of 7.2, PO2 of 82, pCO2 of 54 with an O2 saturation of 95, BUN is 76, creatinine is 1.7. ASSESSMENT: 1. Persistent atrial fibrillation with poorly controlled ventricular rate. 2. Perforated bowel. 3. Multiorgan failure. PLAN: The patient's prognosis is very guarded, I will continue the intravenous amiodarone that she is currently on. MMODL / IJN: [id number] /
--- NOTE | 2022-08-21 20:18 | EEG ---
ELECTROENCEPHALOGRAM REPORT PREAMBLE: This is an 87-year-old female with seizure-like activity. The patient has chronic renal failure, chronic systolic heart failure. EEG FINDINGS: This is a 21-channel digital EEG recorded with video component, utilizing 10/20 international system with referential and bipolar montages. Background consists of moderately well-developed and poorly regulated, mixed frequencies with diffuse theta and delta activity seen in bihemispheric region. Some superimposed fast frequency beta activity was also seen. Some sharply contoured waves seen in the right and left parietal region, which did not appear clearly epileptiform. No electrographic seizure was however recorded. Patient was in stage II sleep with presence of sleep spindles. Photic driving response was not seen. IMPRESSION: 1. This is an abnormal EEG due to background slowing of at least moderate degree, suggestive of encephalopathy or medication effect. 2. Sharply contoured waves were seen in the right and left parietal region, which did not appear clearly epileptiform. Clinical correlation and prolonged EEG recommended, if clinically indicated. MMMELIA / RANDY: [id number] / CRISTY
[2022-08-21 20:31] LABS: Glucose,Whole Blood 106 mg/dL (70-110)
[2022-08-22 00:27] LABS: Glucose,Whole Blood 213 mg/dL (70-110)
[2022-08-22] MEDS: ACETAMINOPHEN IV (For NPO) 1,000 MG in EMPTY BAG 1 BAG IVPB PRN ×2 (00:33→10:48)
[2022-08-22] MEDS: INSULIN ASPART (NovoLOG) 100 UNIT/ML VIAL SQ SCH ×6 (00:34→20:03)
[2022-08-22] MEDS: CEFTOLOZANE/TAZOBACTAM 0.75 GM in SODIUM CHLORIDE 0.9% 100 ML IV SCH ×3 (01:07→16:50)
--- NOTE | 2022-08-22 01:30 | P.PN ---
Subjective Progress Note Date: 08/21/22 Patient seen and evaluated. Findings of perforated colon noted on computed tomography scan. at bedside. No surgical intervention agreed upon with family. Recommend hospice. Objective - Vital Signs Vital signs: Vital Signs Temp 101.3 F H 08/22/22 00:00 Pulse 131 H 08/22/22 01:00 Resp 24 08/22/22 01:00 BP 99/52 08/19/22 16:39 Pulse Ox 92 L 08/22/22 01:00 FiO2 50 08/22/22 00:00 Intake & Output 08/21/22 08/21/22 08/22/22 06:59 18:59 06:59 Intake Total 9210.436 7467.306 724.196 Output Total 75 270 270 Balance 2789.137 2968.306 454.196 Weight 130 kg 130 kg Intake: IV 266 276 461 0.9% @ KVO 230 240 140 ACETAMINOPHEN IV (For NPO 100 ) 1,000 mg In Empty Bag 1 bag @ 400 mls/hr IVPB Q6HR [facility] Rx#:[id number] Ceftolozane/Tazobactam 0. 100 75 gm In Sodium Chloride 0.9% 100 ml @ 100 mls/hr IV Q8HR [facility] Rx#:[id number] Pressure Bag 36 36 21 levETIRAcetam IV 750 mg 100 In Sodium Chloride 0.9% 100 ml @ 400 mls/hr IVPB Q12HR [facility] Rx#:[id number] Intake, IV Titration 373.783 8775.306 263.196 Amount Amiodarone 450 mg In 496.664 250 Dextrose 5% in Water 250 ml @ 1 MG/MIN 33.333 mls/ hr IV .Q7H30M [facility] Rx#: [id number] Anidulafungin 100 mg In 200 Sodium Chloride 0.9% 100 ml @ 84 mls/hr IVPB DAILY [facility] Rx#:[id number] Dextrose 5% in Water 1, 600 75 000 ml @ 75 mls/hr IV . [id number] [facility] with Sodium Bicarb (1 Meq/ml) 150 ml Rx#:[id number] Lacosamide IV 100 mg In 200 Sodium Chloride 0.9% 50 ml @ 100 mls/hr IVPB BID [facility] Rx#:[id number] Norepinephrine 32 mg In 275.242 81.306 188.196 Sodium Chloride 0.9% 218 ml @ 0.5 MCG/KG/MIN 25. 547 mls/hr IV .Q9H48M [facility] Rx#:[id number] levETIRAcetam IV 750 mg 200 In Sodium Chloride 0.9% 100 ml @ 400 mls/hr IVPB Q12HR [facility] Rx#:[id number] Other 80 Output: Urine 75 270 270 Other: Voiding Method Indwelling Catheter Indwelling Catheter Indwelling Catheter ABP, PAP, CO, CI - Last Documented Arterial Blood Pressure 106/42 - Labs CBC & Chem 7: 08/21/22 04:15 08/21/22 04:15 Labs: Abnormal Lab Results - Last 24 Hours (Table) 08/21/22 08/21/22 08/21/22 Range/Units 04:15 04:15 04:15 WBC 17.8 H (3.8-10.6) k/uL RBC 3.20 L (3.80-5.40) m/uL Hgb 8.2 L (11.4-16.0) gm/dL Hct 28.9 L (34.0-46.0) % MCHC 28.3 L (31.0-37.0) g/dL RDW 17.5 H (11.5-15.5) % ABG pH (7.35-7.45) ABG pCO2 (35-45) mmHg ABG pO2 (83-108) mmHg ABG HCO3 (21-25) mmol/L ABG Total CO2 (19-24) mmol/L Chloride 114 H (98-107) mmol/L Carbon Dioxide 16 L (22-30) mmol/L BUN 76 H (7-17) mg/dL Creatinine 1.73 H (0.52-1.04) mg/dL Glucose 153 H (74-99) mg/dL POC Glucose (mg/dL) 170 H (70-110) mg/dL Calcium 6.2 L* (8.4-10.2) mg/dL Phosphorus 5.2 H (2.5-4.5) mg/dL AST 53 H (14-36) U/L Alkaline Phosphatase 203 H (38-126) U/L Total Protein 4.0 L (6.3-8.2) g/dL Albumin 1.4 L (3.5-5.0) g/dL 08/21/22 08/21/22 08/21/22 Range/Units 06:11 11:06 16:30 WBC (3.8-10.6) k/uL RBC (3.80-5.40) m/uL Hgb (11.4-16.0) gm/dL Hct (34.0-46.0) % MCHC (31.0-37.0) g/dL RDW (11.5-15.5) % ABG pH 7.29 L (7.35-7.45) ABG pCO2 34 L (35-45) mmHg ABG pO2 82 L (83-108) mmHg ABG HCO3 16 L (21-25) mmol/L ABG Total CO2 17 L (19-24) mmol/L Chloride (98-107) mmol/L Carbon Dioxide (22-30) mmol/L BUN (7-17) mg/dL Creatinine (0.52-1.04) mg/dL Glucose (74-99) mg/dL POC Glucose (mg/dL) 195 H 162 H (70-110) mg/dL Calcium (8.4-10.2) mg/dL Phosphorus (2.5-4.5) mg/dL AST (14-36) U/L Alkaline Phosphatase (38-126) U/L Total Protein (6.3-8.2) g/dL Albumin (3.5-5.0) g/dL 08/22/22 Range/Units 00:25 WBC (3.8-10.6) k/uL RBC (3.80-5.40) m/uL Hgb (11.4-16.0) gm/dL Hct (34.0-46.0) % MCHC (31.0-37.0) g/dL RDW (11.5-15.5) % ABG pH (7.35-7.45) ABG pCO2 (35-45) mmHg ABG pO2 (83-108) mmHg ABG HCO3 (21-25) mmol/L ABG Total CO2 (19-24) mmol/L Chloride (98-107) mmol/L Carbon Dioxide (22-30) mmol/L BUN (7-17) mg/dL Creatinine (0.52-1.04) mg/dL Glucose (74-99) mg/dL POC Glucose (mg/dL) 213 H (70-110) mg/dL Calcium (8.4-10.2) mg/dL Phosphorus (2.5-4.5) mg/dL AST (14-36) U/L Alkaline Phosphatase (38-126) U/L Total Protein (6.3-8.2) g/dL Albumin (3.5-5.0) g/dL Microbiology - Last 24 Hours (Table) 08/19/22 18:00 Stool Culture - Preliminary Stool 08/19/22 22:00 Blood Culture Gram Stain - Preliminary Blood Blood Culture - Preliminary Enterococcus faecium 08/19/22 21:07 Gram Stain - Preliminary Sputum Sputum Culture - Preliminary
[2022-08-22] MEDS: IPRATROPIUM-ALBUTEROL 3 ML NEB INHALATION SCH ×4 (03:02→15:25)
[2022-08-22] MEDS: VASOPRESSIN 60 UNIT in SODIUM CHLORIDE 0.9% 150 ML IV SCH ×2 (03:36→08:43)
[2022-08-22 04:43] LABS: Glucose,Whole Blood 211 mg/dL (70-110)
[2022-08-22] MEDS: AMIODARONE 450 MG in DEXTROSE 5% IN WATER 250 ML IV SCH ×6 (04:45→20:32)
[2022-08-22 05:11] LABS: ABG HCO3 18 mmol/L (21-25); ABG Oxygen Saturation 90.8 % (94-97); ABG PCO2 36 mmHg (35-45); ABG PH 7.31 (7.35-7.45); ABG PO2 65 mmHg (83-108); ABG TCO2 19 mmol/L (19-24)
[2022-08-22 05:14] LABS: Allen Test Performed? no
[2022-08-22 05:36] LABS: Anisocytosis Slight; HCT 25.3 % (34.0-46.0); HGB 7.8 gm/dL (11.4-16.0); Hypochromasia Moderate; MCH 26.7 pg (25.0-35.0); MCHC 30.7 g/dL (31.0-37.0); MCV 87.1 fL (80.0-100.0); Mean Platelet Volume 9.5; Platelet Count 327 k/uL (150-450); Poikilocytosis Slight; RDW 17.6 % (11.5-15.5); WBC 16.5 k/uL (3.8-10.6)
[2022-08-22 06:10] LABS: Albumin 1.6 g/dL (3.5-5.0); Potassium 4.7 mmol/L (3.5-5.1); Total Bilirubin 0.5 mg/dL (0.2-1.3); Total Protein 4.1 g/dL (6.3-8.2)
[2022-08-22] MEDS: INSULIN DETEMIR (LEVEMIR) 100 UNIT/ML SYR SQ SCH (06:51)
[2022-08-22 07:00] LABS: Calcium 5.9 mg/dL (8.4-10.2)
[2022-08-22] MEDS: polyethylene glycoL 3350 17 GM POWD.PACK PO SCH ×2 (08:32→21:34)
[2022-08-22] MEDS: TAMSULOSIN 0.4 MG CAP.ER.24H PO SCH (08:32)
[2022-08-22] MEDS: PANTOPRAZOLE 40 MG/10 ML VIAL IVP SCH (08:32)
[2022-08-22] MEDS: ANIDULAFUNGIN 100 MG in SODIUM CHLORIDE 0.9% 100 ML IVPB SCH (08:32)
[2022-08-22] MEDS: CHLORHEXIDINE GLUCONATE 15 ML CUP MUCOUS MEM SCH (08:32)
[2022-08-22] MEDS: levETIRAcetam IV 750 MG in SODIUM CHLORIDE 0.9% 100 ML IVPB SCH ×2 (08:33→21:37)
[2022-08-22] MEDS: DEXTROSE 5% IN WATER 1,000 ML with SODIUM BICARB (1 MEQ/ML) 150 ML IV SCH ×2 (08:34→22:57)
[2022-08-22 08:44] LABS: Glucose,Whole Blood 150 mg/dL (70-110)
[2022-08-22] MEDS ORDERED: CALCIUM GLUCONATE IN NACL 1 GM in SALINE 1 100ML.BAG IVPB ONE ×2 (09:03→15:06)
[2022-08-22] MEDS ORDERED: FUROSEMIDE 10 MG/ML 10 ML VIAL IV STA (09:03)
[2022-08-22] MEDS: ERGOCALCIFEROL 1,250 MCG (50,000 IU) CAPSULE PO SCH (09:13)
[2022-08-22] MEDS: FORMOTEROL FUMARATE 20 MCG/2 ML NEBU INHALATION SCH ×2 (09:14→19:24)
[2022-08-22] MEDS: BUDESONIDE 1 MG/2 ML NEBU INHALATION SCH ×2 (09:15→19:25)
--- NOTE | 2022-08-22 10:32 | P.PN ---
Subjective Patient is seen in follow-up for acute kidney injury. Renal function stable. Urine output did improve with IV Lasix given yesterday. Intubated. Currently on Levophed and vasopressin. On bicarb drip. Recent blood culture positive for enterococcus. CAT scan showed pneumoperitoneum. On amiodarone drip for A. fib. Family present at bedside. Vital signs are stable. On vasopressor support. General: Resting in bed. HEENT: Intubated. LUNGS: Breath sounds decreased. HEART: Irregular rate and rhythm. ABDOMEN: Distention noted. EXTREMITITES: 2+ edema. Objective - Vital Signs Vital signs: Vital Signs Temp 99.7 F H 08/22/22 08:00 Pulse 129 H 08/22/22 09:29 Resp 29 H 08/22/22 09:00 BP 99/52 08/19/22 16:39 Pulse Ox 95 08/22/22 09:00 FiO2 40 08/22/22 09:44 Intake & Output 08/21/22 08/22/22 08/22/22 18:59 06:59 18:59 Intake Total 0147.805 1087.196 594 Output Total 270 560 235 Balance 4372.767 6586.196 359 Weight 130 kg 135.8 kg Intake: IV 276 1401 594 0.9% @ KVO 240 240 60 ACETAMINOPHEN IV (For NPO 100 100 ) 1,000 mg In Empty Bag 1 bag @ 400 mls/hr IVPB Q6HR PRN Rx#:[id number] Ceftolozane/Tazobactam 0. 100 100 75 gm In Sodium Chloride 0.9% 100 ml @ 100 mls/hr IV Q8HR [facility] Rx#:[id number] Dextrose 5% in Water 1, 825 225 000 ml @ 75 mls/hr IV . [id number] [facility] with Sodium Bicarb (1 Meq/ml) 150 ml Rx#:[id number] Pressure Bag 36 36 9 levETIRAcetam IV 750 mg 100 100 In Sodium Chloride 0.9% 100 ml @ 400 mls/hr IVPB Q12HR [facility] Rx#:[id number] Intake, IV Titration 1684.306 513.196 Amount Amiodarone 450 mg In 250 250 Dextrose 5% in Water 250 ml @ 1 MG/MIN 33.333 mls/ hr IV .Q7H30M [facility] Rx#: [id number] Anidulafungin 100 mg In 200 Sodium Chloride 0.9% 100 ml @ 84 mls/hr IVPB DAILY [facility] Rx#:[id number] Dextrose 5% in Water 1, 600 75 000 ml @ 75 mls/hr IV . [id number] [facility] with Sodium Bicarb (1 Meq/ml) 150 ml Rx#:[id number] Lacosamide IV 100 mg In 200 Sodium Chloride 0.9% 50 ml @ 100 mls/hr IVPB BID [facility] Rx#:[id number] Norepinephrine 32 mg In 81.306 188.196 Sodium Chloride 0.9% 218 ml @ 0.5 MCG/KG/MIN 25. 547 mls/hr IV .Q9H48M [facility] Rx#:[id number] Vasopressin 60 unit In 153 Sodium Chloride 0.9% 150 ml @ 0.04 UNITS/MIN 6.12 mls/hr IV .Q24H [facility] Rx#: [id number] levETIRAcetam IV 750 mg 200 In Sodium Chloride 0.9% 100 ml @ 400 mls/hr IVPB Q12HR [facility] Rx#:[id number] Output: Urine 270 360 35 Stool 200 200 Other: Voiding Method Indwelling Catheter Indwelling Catheter Indwelling Catheter ABP, PAP, CO, CI - Last Documented Arterial Blood Pressure 103/43 - Labs CBC & Chem 7: 08/22/22 05:10 08/22/22 05:10 Labs: Abnormal Lab Results - Last 24 Hours (Table) 08/21/22 08/21/22 08/21/22 Range/Units 04:15 11:06 16:30 WBC 17.8 H (3.8-10.6) k/uL RBC 3.20 L (3.80-5.40) m/uL Hgb 8.2 L (11.4-16.0) gm/dL Hct 28.9 L (34.0-46.0) % MCHC 28.3 L (31.0-37.0) g/dL RDW 17.5 H (11.5-15.5) % ABG pH (7.35-7.45) ABG pO2 (83-108) mmHg ABG HCO3 (21-25) mmol/L ABG O2 Saturation (94-97) % Sodium (137-145) mmol/L Chloride (98-107) mmol/L Carbon Dioxide (22-30) mmol/L BUN (7-17) mg/dL Creatinine (0.52-1.04) mg/dL Glucose (74-99) mg/dL POC Glucose (mg/dL) 195 H 162 H (70-110) mg/dL Calcium (8.4-10.2) mg/dL AST (14-36) U/L Alkaline Phosphatase (38-126) U/L Total Protein (6.3-8.2) g/dL Albumin (3.5-5.0) g/dL 08/22/22 08/22/22 08/22/22 Range/Units 00:25 04:41 05:08 WBC (3.8-10.6) k/uL RBC (3.80-5.40) m/uL Hgb (11.4-16.0) gm/dL Hct (34.0-46.0) % MCHC (31.0-37.0) g/dL RDW (11.5-15.5) % ABG pH 7.31 L (7.35-7.45) ABG pO2 65 L (83-108) mmHg ABG HCO3 18 L (21-25) mmol/L ABG O2 Saturation 90.8 L (94-97) % Sodium (137-145) mmol/L Chloride (98-107) mmol/L Carbon Dioxide (22-30) mmol/L BUN (7-17) mg/dL Creatinine (0.52-1.04) mg/dL Glucose (74-99) mg/dL POC Glucose (mg/dL) 213 H 211 H (70-110) mg/dL Calcium (8.4-10.2) mg/dL AST (14-36) U/L Alkaline Phosphatase (38-126) U/L Total Protein (6.3-8.2) g/dL Albumin (3.5-5.0) g/dL 08/22/22 08/22/22 08/22/22 Range/Units 05:10 05:10 08:42 WBC 16.5 H (3.8-10.6) k/uL RBC 2.90 L (3.80-5.40) m/uL Hgb 7.8 L (11.4-16.0) gm/dL Hct 25.3 L (34.0-46.0) % MCHC 30.7 L (31.0-37.0) g/dL RDW 17.6 H (11.5-15.5) % ABG pH (7.35-7.45) ABG pO2 (83-108) mmHg ABG HCO3 (21-25) mmol/L ABG O2 Saturation (94-97) % Sodium 136 L (137-145) mmol/L Chloride 109 H (98-107) mmol/L Carbon Dioxide 18 L (22-30) mmol/L BUN 83 H (7-17) mg/dL Creatinine 1.79 H (0.52-1.04) mg/dL Glucose 185 H (74-99) mg/dL POC Glucose (mg/dL) 150 H (70-110) mg/dL Calcium 5.9 L* (8.4-10.2) mg/dL AST 53 H (14-36) U/L Alkaline Phosphatase 185 H (38-126) U/L Total Protein 4.1 L (6.3-8.2) g/dL Albumin 1.6 L (3.5-5.0) g/dL Microbiology - Last 24 Hours (Table) 08/19/22 22:00 Blood Culture Gram Stain - Preliminary Blood Blood Culture - Preliminary Enterococcus faecium 08/19/22 18:00 Stool Culture - Preliminary Stool 08/19/22 21:07 Gram Stain - Preliminary Sputum Sputum Culture - Preliminary Assessment and Plan Plan: Assessment: 1. Acute kidney injury secondary to ATN secondary to septic shock. Baseline creatinine near 0.8 from June 2022 - peaked at 2.77 this admission - 1.76 t derrek. Urine output 10-15 mL an hour but improved with IV Lasix given yesterday. No hydronephrosis noted on CAT scan. 2. Septic shock secondary to UTI, fungemia and bacteremia. CAT scan done in 08/20/2022 showed pneumoperitoneum. On antibiotics/antifungal and vasopressor support. 3. Metabolic acidosis secondary to acute kidney injury. On bicarb drip. 4. Hypokalemia from poor intake and diuresis. Improved. 5. Acute hypoxic respiratory failure. 6. A. fib with RVR. On amiodarone drip. Cardiology following. 8. Hypernatremia from lack of oral water intake. Status post water flushes. I mproved. 9. Hypocalcemia secondary to acute kidney injury. Corrected calcium is normal. Plan: Maintain bicarb drip. Repeat IV Lasix today. Replace calcium. Check ionized calcium level. Wean FiO2 and vasopressors. Avoid nephrotoxins. Continue to monitor renal function and urine output. Continue to assess daily for need for renal replacement therapy. No urgency at this time. Patient also hemodynamically unstable. Prognosis guarded.
--- NOTE | 2022-08-22 12:26 | XR ---
EXAMINATION TYPE: XR chest 1V portable DATE OF EXAM: 08/22/2022 COMPARISON: NONE HISTORY: Intubated. ICU. TECHNIQUE: Single frontal view of the chest is obtained. FINDINGS: There is right basal atelectasis and may be small pleural effusion which may be new compar ed to few days ago. Mild atelectasis seen in the left lung base. The lungs demonstrate mild congestio n without pulmonary edema. No focal consolidation to suggest pneumonia. Endotracheal tube, nasogastric tube, and PICC line are in stable position. Heart and mediastinum are midline. IMPRESSION: Bibasal atelectasis and consolidation. Minimally increased compared to prior examination . No pneumothorax. Possible tiny right basilar pleural effusion.
--- NOTE | 2022-08-22 12:29 | P.PN ---
Subjective Progress Note Date: 08/22/22 Principal diagnosis: Sepsis/septic shock Patient is a 87-year-old female with multiple comorbidities presented to the hospital with a syncopal episode weakness subsequently hypotension, sepsis requiring transfer to the ICU and intubation on the vent. She patient did have a CT of abdominal pelvis completed on 08/20/2022 with evidence of pneumoperitoneum Gen. surgery discussed with the family currently being treated medically On today's evaluation that is 08/22/2022, the patient did spike a fever to 102F this morning, the patient is currently requiring requiring max pressor support to maintain her blood pressure, pressor amount has been about the same as yesterday, the patient FiO2 is currently stable at 40 %, no significant purulent secretions through the ET , patient did have NG to suction and did have a fecal management system for her diarrhea Objective - Vital Signs Vital signs: Vital Signs Temp 99.7 F H 08/22/22 08:00 Pulse 129 H 08/22/22 09:29 Resp 29 H 08/22/22 09:00 BP 99/52 08/19/22 16:39 Pulse Ox 95 08/22/22 09:00 FiO2 40 08/22/22 09:44 Intake & Output 08/21/22 08/22/22 08/22/22 18:59 06:59 18:59 Intake Total 9218.138 4425.196 594 Output Total 270 560 235 Balance 2141.346 4354.196 359 Weight 130 kg 135.8 kg Intake: IV 276 1401 594 0.9% @ KVO 240 240 60 ACETAMINOPHEN IV (For NPO 100 100 ) 1,000 mg In Empty Bag 1 bag @ 400 mls/hr IVPB Q6HR PRN Rx#:[id number] Ceftolozane/Tazobactam 0. 100 100 75 gm In Sodium Chloride 0.9% 100 ml @ 100 mls/hr IV Q8HR [facility] Rx#:[id number] Dextrose 5% in Water 1, 825 225 000 ml @ 75 mls/hr IV . [id number] [facility] with Sodium Bicarb (1 Meq/ml) 150 ml Rx#:[id number] Pressure Bag 36 36 9 levETIRAcetam IV 750 mg 100 100 In Sodium Chloride 0.9% 100 ml @ 400 mls/hr IVPB Q12HR [facility] Rx#:[id number] Intake, IV Titration 1684.306 513.196 Amount Amiodarone 450 mg In 250 250 Dextrose 5% in Water 250 ml @ 1 MG/MIN 33.333 mls/ hr IV .Q7H30M [facility] Rx#: [id number] Anidulafungin 100 mg In 200 Sodium Chloride 0.9% 100 ml @ 84 mls/hr IVPB DAILY [facility] Rx#:[id number] Dextrose 5% in Water 1, 600 75 000 ml @ 75 mls/hr IV . [id number] [facility] with Sodium Bicarb (1 Meq/ml) 150 ml Rx#:[id number] Lacosamide IV 100 mg In 200 Sodium Chloride 0.9% 50 ml @ 100 mls/hr IVPB BID [facility] Rx#:[id number] Norepinephrine 32 mg In 81.306 188.196 Sodium Chloride 0.9% 218 ml @ 0.5 MCG/KG/MIN 25. 547 mls/hr IV .Q9H48M [facility] Rx#:[id number] Vasopressin 60 unit In 153 Sodium Chloride 0.9% 150 ml @ 0.04 UNITS/MIN 6.12 mls/hr IV .Q24H [facility] Rx#: [id number] levETIRAcetam IV 750 mg 200 In Sodium Chloride 0.9% 100 ml @ 400 mls/hr IVPB Q12HR [facility] Rx#:[id number] Output: Urine 270 360 35 Stool 200 200 Other: Voiding Method Indwelling Catheter Indwelling Catheter Indwelling Catheter ABP, PAP, CO, CI - Last Documented Arterial Blood Pressure 103/43 - Exam GENERAL DESCRIPTION: An elderly female intubated on the vent RESPIRATORY SYSTEM: Unlabored breathing , decreased breath sounds at bases HEART: S1 S2 regular rate and rhythm , ABDOMEN: Soft , abdominal distention EXTREMITIES: Lower extremity swelling no redness - Labs CBC & Chem 7: 08/22/22 05:10 08/22/22 05:10 Labs: Abnormal Lab Results - Last 24 Hours (Table) 08/21/22 08/21/22 08/21/22 Range/Units 04:15 11:06 16:30 WBC 17.8 H (3.8-10.6) k/uL RBC 3.20 L (3.80-5.40) m/uL Hgb 8.2 L (11.4-16.0) gm/dL Hct 28.9 L (34.0-46.0) % MCHC 28.3 L (31.0-37.0) g/dL RDW 17.5 H (11.5-15.5) % ABG pH (7.35-7.45) ABG pO2 (83-108) mmHg ABG HCO3 (21-25) mmol/L ABG O2 Saturation (94-97) % Sodium (137-145) mmol/L Chloride (98-107) mmol/L Carbon Dioxide (22-30) mmol/L BUN (7-17) mg/dL Creatinine (0.52-1.04) mg/dL Glucose (74-99) mg/dL POC Glucose (mg/dL) 195 H 162 H (70-110) mg/dL Calcium (8.4-10.2) mg/dL AST (14-36) U/L Alkaline Phosphatase (38-126) U/L Total Protein (6.3-8.2) g/dL Albumin (3.5-5.0) g/dL 08/22/22 08/22/22 08/22/22 Range/Units 00:25 04:41 05:08 WBC (3.8-10.6) k/uL RBC (3.80-5.40) m/uL Hgb (11.4-16.0) gm/dL Hct (34.0-46.0) % MCHC (31.0-37.0) g/dL RDW (11.5-15.5) % ABG pH 7.31 L (7.35-7.45) ABG pO2 65 L (83-108) mmHg ABG HCO3 18 L (21-25) mmol/L ABG O2 Saturation 90.8 L (94-97) % Sodium (137-145) mmol/L Chloride (98-107) mmol/L Carbon Dioxide (22-30) mmol/L BUN (7-17) mg/dL Creatinine (0.52-1.04) mg/dL Glucose (74-99) mg/dL POC Glucose (mg/dL) 213 H 211 H (70-110) mg/dL Calcium (8.4-10.2) mg/dL AST (14-36) U/L Alkaline Phosphatase (38-126) U/L Total Protein (6.3-8.2) g/dL Albumin (3.5-5.0) g/dL 08/22/22 08/22/22 08/22/22 Range/Units 05:10 05:10 08:42 WBC 16.5 H (3.8-10.6) k/uL RBC 2.90 L (3.80-5.40) m/uL Hgb 7.8 L (11.4-16.0) gm/dL Hct 25.3 L (34.0-46.0) % MCHC 30.7 L (31.0-37.0) g/dL RDW 17.6 H (11.5-15.5) % ABG pH (7.35-7.45) ABG pO2 (83-108) mmHg ABG HCO3 (21-25) mmol/L ABG O2 Saturation (94-97) % Sodium 136 L (137-145) mmol/L Chloride 109 H (98-107) mmol/L Carbon Dioxide 18 L (22-30) mmol/L BUN 83 H (7-17) mg/dL Creatinine 1.79 H (0.52-1.04) mg/dL Glucose 185 H (74-99) mg/dL POC Glucose (mg/dL) 150 H (70-110) mg/dL Calcium 5.9 L* (8.4-10.2) mg/dL AST 53 H (14-36) U/L Alkaline Phosphatase 185 H (38-126) U/L Total Protein 4.1 L (6.3-8.2) g/dL Albumin 1.6 L (3.5-5.0) g/dL Microbiology - Last 24 Hours (Table) 08/19/22 18:00 Stool Culture - Preliminary Stool 08/19/22 22:00 Blood Culture Gram Stain - Preliminary Blood Blood Culture - Preliminary Enterococcus faecium 08/19/22 21:07 Gram Stain - Preliminary Sputum Sputum Culture - Preliminary Assessment and Plan (1) Sepsis Current Visit: Yes Status: Acute Code(s): A41.9 - SEPSIS, UNSPECIFIED ORGANISM SNOMED Code(s): 33071586 Plan: 1patient was in the hospital with sepsis and septic shock initially concern for multidrug-resistant Pseudomonas UTI, patient also have a candidemia secondary to possible abdominal source and now with a VRE bacteremia source likely abdominal 2patient did have evidence of colonic perforation and peritonitis being managed medically as the patient considered to be high risk for any surgical procedure 3patient to continue with the daptomycin Zerbexa and Eraxis Prognosis remains to be guarded at the bedside question were answered Time with Patient: Less than 30
[2022-08-22 12:32] LABS: Glucose,Whole Blood 177 mg/dL (70-110)
--- NOTE | 2022-08-22 12:57 | PN ---
PROGRESS NOTE SUBJECTIVE: An 87-year-old lady who is currently intubated on vent and ICU that we are following because of atrial fibrillation with rapid ventricular rate. The patient has a perforated bowel and is thought not to be a candidate for surgery. Family has opted for continued care at this time. The patient is on intravenous amiodarone and she is requiring maximal dose pressors. Heart rate seems slightly better controlled compared to yesterday. OBJECTIVE: GENERAL: The patient is intubated, vented, unresponsive. VITAL SIGNS: Heart rate is around 115-120 beats per minute, blood pressure is 103/40, and respiratory rate is 29. CHEST: Reveals diminished air entry at the bases without any crackles or rhonchi. HEART: Reveals first and second heart sounds, irregular rhythm and a systolic murmur at the apex. ABDOMEN: Soft. EXTREMITIES: Bilateral 1+ edema. LABORATORY DATA: Labs showed hemoglobin of 7.8, platelet count is 327, potassium is 4.7, BUN is 83, and creatinine is 1.7. ASSESSMENT: 1. Persistent atrial fibrillation with poorly controlled ventricular rate. 2. Bowel perforation. Patient is not a candidate for surgery. 3. Renal failure. PLAN: Continue with the supportive care. Prognosis is guarded. MMODL / IJN: [id number] /
[2022-08-22] MEDS: NOREPINEPHRINE 32 MG in SODIUM CHLORIDE 0.9% 218 ML IV SCH ×2 (14:24→22:56)
--- NOTE | 2022-08-22 15:14 | P.PN ---
Subjective Progress Note Date: 08/22/22 Principal diagnosis: Acute on chronic hypoxic respiratory failure secondary to acute diastolic congestive heart failure, and septic shock. With abdominal sepsis and bowel perforation. 08/20/2022, I'm seeing the patient for a follow-up. Since yesterday, the patient has taken a turn to the worse. As of yesterday, the patient started having episodes of fever with a T-max of 103.1. At the same time, the patient's blood pressure was getting more soft and the patient was becoming more hypotensive in the urine output dropped considerably. As such, the patient had to be placed on a higher dose of pressors. The patient was given a total of 2 L of IV fluids. Vancomycin was also added to the regimen as the patient is taking currently a combination of Zerbaxa and Eraxis. On today's evaluation, the patient is still off sedation. The patient is on a mechanical ventilator on assist control mode of mechanical ventilation rate of 28 with a tidal volume of 400 and a PEEP of 5 and FiO2 of 40%. The chest x-ray shows limited bibasilar pulmonary infiltrates. ET tube is in a good location. No signs of any consolidation or pulmonary edema. The blood gas shows a pH of 7.2 with a pCO2 of 33 and a pO2 of 76. As such, the patient has become progressively more acidotic. Hemodynamically, the patient has become more hypotensive and the patient is currently on a combination of vasopressin physiologic dose and a norepinephrine had to be brought up to 0.2 mcg/kg/m. Urine output is extremely low at this point in time. The white cell count has come up to 26.6 from 19.9 a nd the hemoglobin is at 8.7. Noted the patient was given units of packed RBC for a hemoglobin of 6.9 yesterday and hemoglobin is at 8.7 today. The patient has become also acidotic. Urine is at 67 with a creatinine of 1.4. Serum bicarb is at 17 and this is a non-anion gap metabolic acidosis. Sodium is at 141 with a potassium level of 4.7. LFTs are normal. The patient is receiving TPN through a midline in the left upper extremity at the rate of 68 mL an hour. She also has a triple-lumen catheter in the left subclavian. The patient is in a positive fluid balance. The patient is still febrile. The patient is stooling. The laxatives have been discontinued. She is currently has a fecal management system in Place and stool was also sent for C. diff.. The patient is unresponsive to any verbal or painful stimulation at this point in time and she's been off sedation for the past 48 hours. His obvious component of metabolic encephalopathy secondary to ovulation comorbidities. She remains on amiodarone drip at 1 mg/m. She remains in atrial fibrillation. She is on anticoagulation with Eliquis 5 mg by mouth twice a day. Reevaluated today on 08/21/2022, patient remains on the ventilator, intubated mechanically ventilated, on assist control rate 28, volume 400 FiO2 40% PEEP of 5. ABG showed a pO2 of 82 pCO2 34 pH of 7.29, patient was placed on bicarb drip earlier by nephrology. She is maximized on norepinephrine at 0.5 mcg/kg/m she is also on amiodarone 1 mg/m vasopressin at 0.[address] of the abdomen yesterday showed bowel perforation and pneumoperitoneum of blood is positive for enterococcus. Patient is atrial fibrillation with RVR. Family today is at bedside, and had a long discussion with the and the daughter, explained to them that her condition is basically extremely poor, and the patient will not make it considering her new finding of abdominal sepsis. They were made aware yesterday by the surgeon about her bowel perforation, the surgeon and the family felt that she is extremely high surgical risk, hence no surgery was done for her abdominal sepsis and bowel perforation. In the meantime the patient is maximized on pressors she is also on antibiotics, her WBC scan is 17.8 hemoglobin is 8.2 bicarb is 16 BUN is 76 creatinine 1.73. The primary care physician Dr. Hartman talk to the about her condition and he was able to change her CODE STATUS to DO NOT RESUSCITATE CODE STATUS. However the family is still not agreeable to consider comfort care measures. I even suggested stopping the presses and down the line consider comfort care but not yet at this point. Family does not seem to be very agreeable. Patient is on good course of antibiotics, which is also on antifungal therapy. Also on bronchodilators. Being followed by infectious disease and now she is on daptomycin, patient is also on Eraxis, and zerbaxa Patient was reevaluated today on 08/22/22, admitted ICU intubated mechanically ventilated. She is maximized on pressors, she is on assist control rate of 28th of volume 400 FiO2 40% PEEP of 5 ABG showed a pO2 of 65 pCO2 36 pH of 7.31. Patient is on 0.5 g ventricular per minute of norepinephrine 0.04 units per minute of vasopressin remains on bicarb drip, remains on amiodarone 1 mg/m and her normal saline at 100 mL per hour. WBC count is 16.5 hemoglobin is 7.8. Sick metabolic profile is normal renal profile is abnormal with BUN of 83 creatinine 1.79 and remains on antibiotics as per infectious disease on the case. Chest x-ray showed bibasilar atelectasis and consolidations. And small tiny right-sided pleural effusion endotracheal tube and orogastric tube are in proper positions Objective - Vital Signs Vital signs: Vital Signs Temp 100.3 F H 08/22/22 12:00 Pulse 115 H 08/22/22 14:00 Resp 34 H 08/22/22 14:00 BP 99/52 08/19/22 16:39 Pulse Ox 94 L 08/22/22 14:00 FiO2 40 08/22/22 12:34 Intake & Output 08/21/22 08/22/22 08/22/22 18:59 06:59 18:59 Intake Total 7721.355 4733.196 1209 Output Total 270 560 485 Balance 7788.655 5289.196 724 Weight 130 kg 135.8 kg Intake: IV 276 1401 709 0.9% @ KVO 240 240 160 ACETAMINOPHEN IV (For NPO 100 100 ) 1,000 mg In Empty Bag 1 bag @ 400 mls/hr IVPB Q6HR [facility] Rx#:[id number] Ceftolozane/Tazobactam 0. 100 100 75 gm In Sodium Chloride 0.9% 100 ml @ 100 mls/hr IV Q8HR [facility] Rx#:[id number] Dextrose 5% in Water 1, 825 225 000 ml @ 75 mls/hr IV . [id number] [facility] with Sodium Bicarb (1 Meq/ml) 150 ml Rx#:[id number] Pressure Bag 36 36 24 levETIRAcetam IV 750 mg 100 100 In Sodium Chloride 0.9% 100 ml @ 400 mls/hr IVPB Q12HR [facility] Rx#:[id number] Intake, IV Titration 1684.306 513.196 500 Amount Amiodarone 450 mg In 250 250 250 Dextrose 5% in Water 250 ml @ 1 MG/MIN 33.333 mls/ hr IV .Q7H30M [facility] Rx#: [id number] Anidulafungin 100 mg In 200 Sodium Chloride 0.9% 100 ml @ 84 mls/hr IVPB DAILY [facility] Rx#:[id number] Dextrose 5% in Water 1, 600 75 000 ml @ 75 mls/hr IV . [id number] [facility] with Sodium Bicarb (1 Meq/ml) 150 ml Rx#:[id number] Lacosamide IV 100 mg In 200 Sodium Chloride 0.9% 50 ml @ 100 mls/hr IVPB BID [facility] Rx#:[id number] Norepinephrine 32 mg In 81.306 188.196 250 Sodium Chloride 0.9% 218 ml @ 0.5 MCG/KG/MIN 25. 547 mls/hr IV .Q9H48M [facility] Rx#:[id number] Vasopressin 60 unit In 153 Sodium Chloride 0.9% 150 ml @ 0.04 UNITS/MIN 6.12 mls/hr IV .Q24H [facility] Rx#: [id number] levETIRAcetam IV 750 mg 200 In Sodium Chloride 0.9% 100 ml @ 400 mls/hr IVPB Q12HR [facility] Rx#:[id number] Output: Urine 270 360 85 Stool 200 400 Other: Voiding Method Indwelling Catheter Indwelling Catheter Indwelling Catheter ABP, PAP, CO, CI - Last Documented Arterial Blood Pressure 104/44 - Exam GENERAL EXAM: Intubated, sedated, 87-year-old morbidly obese female, sedated, not in distress intubated and mechanically ventilated HEAD: Normocephalic. EYES: Sluggish reaction of pupils, equal size. NOSE: Nasogastric tube secured in place. Clear with pink turbinates. THROAT: Oral endotracheal tube in place. NECK: No masses, no JVD. CHEST: No chest wall deformity. LUNGS: Equal air entry with crackles in the bilateral bases. CVS: S1 and S2 normal with no audible murmur, irregular rhythm. ABDOMEN: No hepatosplenomegaly, normal bowel sounds, no guarding or rigidity. SKIN: No rashes CENTRAL NERVOUS SYSTEM: Sedated, tone is normal in all 4 extremities. Could not assess. EXTREMITIES: There is 1-2+ peripheral edema. Changes of chronic venous stasis. No clubbing, no cyanosis. Peripheral pulses are intact. - Labs CBC & Chem 7: 08/22/22 05:10 08/22/22 05:10 Labs: Abnormal Lab Results - Last 24 Hours (Table) 08/21/22 08/22/22 08/22/22 Range/Units 16:30 00:25 04:41 WBC (3.8-10.6) k/uL RBC (3.80-5.40) m/uL Hgb (11.4-16.0) gm/dL Hct (34.0-46.0) % MCHC (31.0-37.0) g/dL RDW (11.5-15.5) % ABG pH (7.35-7.45) ABG pO2 (83-108) mmHg ABG HCO3 (21-25) mmol/L ABG O2 Saturation (94-97) % Sodium (137-145) mmol/L Chloride (98-107) mmol/L Carbon Dioxide (22-30) mmol/L BUN (7-17) mg/dL Creatinine (0.52-1.04) mg/dL Glucose (74-99) mg/dL POC Glucose (mg/dL) 162 H 213 H 211 H (70-110) mg/dL Calcium (8.4-10.2) mg/dL Ionized Calcium Leesa (4.5-5.3) mg/dL AST (14-36) U/L Alkaline Phosphatase (38-126) U/L Total Protein (6.3-8.2) g/dL Albumin (3.5-5.0) g/dL 08/22/22 08/22/22 08/22/22 Range/Units 05:08 05:10 05:10 WBC 16.5 H (3.8-10.6) k/uL RBC 2.90 L (3.80-5.40) m/uL Hgb 7.8 L (11.4-16.0) gm/dL Hct 25.3 L (34.0-46.0) % MCHC 30.7 L (31.0-37.0) g/dL RDW 17.6 H (11.5-15.5) % ABG pH 7.31 L (7.35-7.45) ABG pO2 65 L (83-108) mmHg ABG HCO3 18 L (21-25) mmol/L ABG O2 Saturation 90.8 L (94-97) % Sodium 136 L (137-145) mmol/L Chloride 109 H (98-107) mmol/L Carbon Dioxide 18 L (22-30) mmol/L BUN 83 H (7-17) mg/dL Creatinine 1.79 H (0.52-1.04) mg/dL Glucose 185 H (74-99) mg/dL POC Glucose (mg/dL) (70-110) mg/dL Calcium 5.9 L* (8.4-10.2) mg/dL Ionized Calcium [place]esa (4.5-5.3) mg/dL AST 53 H (14-36) U/L Alkaline Phosphatase 185 H (38-126) U/L Total Protein 4.1 L (6.3-8.2) g/dL Albumin 1.6 L (3.5-5.0) g/dL 08/22/22 08/22/22 08/22/22 Range/Units 08:42 09:15 12:32 WBC (3.8-10.6) k/uL RBC (3.80-5.40) m/uL Hgb (11.4-16.0) gm/dL Hct (34.0-46.0) % MCHC (31.0-37.0) g/dL RDW (11.5-15.5) % ABG pH (7.35-7.45) ABG pO2 (83-108) mmHg ABG HCO3 (21-25) mmol/L ABG O2 Saturation (94-97) % Sodium (137-145) mmol/L Chloride (98-107) mmol/L Carbon Dioxide (22-30) mmol/L BUN (7-17) mg/dL Creatinine (0.52-1.04) mg/dL Glucose (74-99) mg/dL POC Glucose (mg/dL) 150 H 177 H (70-110) mg/dL Calcium (8.4-10.2) mg/dL Ionized Calcium [place] 3.7 L (4.5-5.3) mg/dL AST (14-36) U/L Alkaline Phosphatase (38-126) U/L Total Protein (6.3-8.2) g/dL Albumin (3.5-5.0) g/dL Microbiology - Last 24 Hours (Table) 08/19/22 21:07 Gram Stain - Final Sputum Sputum Culture - Final Methicillin resist S. aureus Ange albicans 08/19/22 22:00 Blood Culture Gram Stain - Preliminary Blood Blood Culture - Preliminary Enterococcus faecium 08/19/22 18:00 Stool Culture - Preliminary Stool Assessment and Plan Assessment: Impression: Acute on chronic hypoxic respiratory failure Acute on chronic diastolic congestive heart failure Abdominal sepsis and septic shock Anion gap metabolic acidosis Urinary tract infection secondary to Enterococcus faecalis and pseudomonas aeruginosa Systemic candidiasis with positive cultures for Ange. Anaerobic gram-negative bacteria in the blood Atrial fibrillation with RVR requiring amiodarone drip Acute on chronic kidney disease Recent history of COVID-19 infection History of valvular heart disease with aortic stenosis Acute on chronic anemia History of underlying COPD History of diastolic congestive heart failure Recommendation: Updated the on her condition today, made aware that not much of a change happened over the last 24 hours Continue present supportive care measures still not ready for comfort care measures Continue antibiotics Continue GI and DVT prophylaxis Consider TPN. Patient is critically ill We will continue to follow Critical care time is over 30 minutes Time with Patient: Greater than 30
[2022-08-22 16:38] LABS: Glucose,Whole Blood 105 mg/dL (70-110)
[2022-08-22] MEDS ORDERED: LORazepam 2 MG/ML INJ ONE (16:44)
[2022-08-22] MEDS ORDERED: LORazepam 2 MG/ML INJ IV STA ×2 (16:48→17:03)
[2022-08-22] MEDS: LORazepam 2 MG/ML INJ IV PRN ×2 (16:58→22:31)
--- NOTE | 2022-08-22 17:10 | P.PN ---
Subjective Progress Note Date: 08/22/22 CHIEF COMPLAINT: Abdominal pain HISTORY OF PRESENT ILLNESS: Patient remains in the ICU intubated and on m echanical ventilation. Patient remains on norepinephrine and vasopressin, bicarb drip and amiodarone. Patient does have a perforated bowel. CODE STATUS is currently no code. Patient's does not feel ready to place patient on hospice. T-max 102 tachycardic. WBC 16.5 Hgb 7.8-327 sodium is 136 creatinine 1.79I's calcium 3.7 PHYSICAL EXAM: VITAL SIGNS: Reviewed GENERAL: On mechanical ventilation. Office sedation. no acute distress. Head is atraumatic, normocephalic. No nasal drainage. NECK: Supple without lymphadenopathy. CHEST: Non-labored respirations and equal bilateral excursions. CARDIOVASCULAR: Palpable 2+ radial pulses. ABDOMEN: Distended. NG tube with bilious output MUSCULOSKELETAL: No clubbing or cyanosis. ASSESSMENT: 1. Colon perforation 2. Sigmoid volvulus 3. Constipation 4. Sepsis 5. UTI 6. Lactic acidosis 7. Acute on chronic kidney disease 8. History of atrial fibrillation 9. History of CVA 9. Hypokalemia 10. Hypocalcemia 11. Blood culture with yeast PLAN: -Recommend hospice care -No surgical intervention planned -Patient is considered high risk for surgical intervention -Continue TPN for nutrition support -Continue antibiotics -Continue GI and DVT prophylaxis Physician [employer] Developer note has been reviewed by physician. Signing provider agrees with the documented findings, assessment, and plan of care. Objective - Vital Signs Vital signs: Vital Signs Temp 99.4 F 08/22/22 16:00 Pulse 125 H 08/22/22 17:00 Resp 49 H 08/22/22 17:00 BP 99/52 08/19/22 16:39 Pulse Ox 84 L 08/22/22 17:00 FiO2 50 08/22/22 16:34 Intake & Output 08/21/22 08/22/22 08/22/22 18:59 06:59 18:59 Intake Total 8149.407 1361.196 1255 Output Total 270 560 810 Balance 2498.718 2445.196 445 Weight 130 kg 135.8 kg Intake: IV 276 1401 755 0.9% @ KVO 240 240 200 ACETAMINOPHEN IV (For NPO 100 100 ) 1,000 mg In Empty Bag 1 bag @ 400 mls/hr IVPB Q6HR [facility]N Rx#:[id number] Ceftolozane/Tazobactam 0. 100 100 75 gm In Sodium Chloride 0.9% 100 ml @ 100 mls/hr IV Q8HR [facility] Rx#:[id number] Dextrose 5% in Water 1, 825 225 000 ml @ 75 mls/hr IV . [id number] [facility] with Sodium Bicarb (1 Meq/ml) 150 ml Rx#:[id number] Pressure Bag 36 36 30 levETIRAcetam IV 750 mg 100 100 In Sodium Chloride 0.9% 100 ml @ 400 mls/hr IVPB Q12HR [facility] Rx#:[id number] Intake, IV Titration 1684.306 513.196 500 Amount Amiodarone 450 mg In 250 250 250 Dextrose 5% in Water 250 ml @ 1 MG/MIN 33.333 mls/ hr IV .Q7H30M [facility] Rx#: [id number] Anidulafungin 100 mg In 200 Sodium Chloride 0.9% 100 ml @ 84 mls/hr IVPB DAILY [facility] Rx#:[id number] Dextrose 5% in Water 1, 600 75 000 ml @ 75 mls/hr IV . [id number] [facility] with Sodium Bicarb (1 Meq/ml) 150 ml Rx#:[id number] Lacosamide IV 100 mg In 200 Sodium Chloride 0.9% 50 ml @ 100 mls/hr IVPB BID [facility] Rx#:[id number] Norepinephrine 32 mg In 81.306 188.196 250 Sodium Chloride 0.9% 218 ml @ 0.5 MCG/KG/MIN 25. 547 mls/hr IV .Q9H48M [facility] Rx#:[id number] Vasopressin 60 unit In 153 Sodium Chloride 0.9% 150 ml @ 0.04 UNITS/MIN 6.12 mls/hr IV .Q24H [facility] Rx#: [id number] levETIRAcetam IV 750 mg 200 In Sodium Chloride 0.9% 100 ml @ 400 mls/hr IVPB Q12HR [facility] Rx#:[id number] Output: Urine 270 360 210 Stool 200 600 Other: Voiding Method Indwelling Catheter Indwelling Catheter Indwelling Catheter ABP, PAP, CO, CI - Last Documented Arterial Blood Pressure 104/45 - Labs CBC & Chem 7: 08/22/22 05:10 08/22/22 05:10 Labs: Abnormal Lab Results - Last 24 Hours (Table) 08/22/22 08/22/22 08/22/22 Range/Units 00:25 04:41 05:08 WBC (3.8-10.6) k/uL RBC (3.80-5.40) m/uL Hgb (11.4-16.0) gm/dL Hct (34.0-46.0) % MCHC (31.0-37.0) g/dL RDW (11.5-15.5) % ABG pH 7.31 L (7.35-7.45) ABG pO2 65 L (83-108) mmHg ABG HCO3 18 L (21-25) mmol/L ABG O2 Saturation 90.8 L (94-97) % Sodium (137-145) mmol/L Chloride (98-107) mmol/L Carbon Dioxide (22-30) mmol/L BUN (7-17) mg/dL Creatinine (0.52-1.04) mg/dL Glucose (74-99) mg/dL POC Glucose (mg/dL) 213 H 211 H (70-110) mg/dL Calcium (8.4-10.2) mg/dL Ionized Calcium [place] (4.5-5.3) mg/dL AST (14-36) U/L Alkaline Phosphatase (38-126) U/L Total Protein (6.3-8.2) g/dL Albumin (3.5-5.0) g/dL 08/22/22 08/22/22 08/22/22 Range/Units 05:10 05:10 08:42 WBC 16.5 H (3.8-10.6) k/uL RBC 2.90 L (3.80-5.40) m/uL Hgb 7.8 L (11.4-16.0) gm/dL Hct 25.3 L (34.0-46.0) % MCHC 30.7 L (31.0-37.0) g/dL RDW 17.6 H (11.5-15.5) % ABG pH (7.35-7.45) ABG pO2 (83-108) mmHg ABG HCO3 (21-25) mmol/L ABG O2 Saturation (94-97) % Sodium 136 L (137-145) mmol/L Chloride 109 H (98-107) mmol/L Carbon Dioxide 18 L (22-30) mmol/L BUN 83 H (7-17) mg/dL Creatinine 1.79 H (0.52-1.04) mg/dL Glucose 185 H (74-99) mg/dL POC Glucose (mg/dL) 150 H (70-110) mg/dL Calcium 5.9 L* (8.4-10.2) mg/dL Ionized Calcium [place] (4.5-5.3) mg/dL AST 53 H (14-36) U/L Alkaline Phosphatase 185 H (38-126) U/L Total Protein 4.1 L (6.3-8.2) g/dL Albumin 1.6 L (3.5-5.0) g/dL 08/22/22 08/22/22 Range/Units 09:15 12:32 WBC (3.8-10.6) k/uL RBC (3.80-5.40) m/uL Hgb (11.4-16.0) gm/dL Hct (34.0-46.0) % MCHC (31.0-37.0) g/dL RDW (11.5-15.5) % ABG pH (7.35-7.45) ABG pO2 (83-108) mmHg ABG HCO3 (21-25) mmol/L ABG O2 Saturation (94-97) % Sodium (137-145) mmol/L Chloride (98-107) mmol/L Carbon Dioxide (22-30) mmol/L BUN (7-17) mg/dL Creatinine (0.52-1.04) mg/dL Glucose (74-99) mg/dL POC Glucose (mg/dL) 177 H (70-110) mg/dL Calcium (8.4-10.2) mg/dL Ionized Calcium [place] 3.7 L (4.5-5.3) mg/dL AST (14-36) U/L Alkaline Phosphatase (38-126) U/L Total Protein (6.3-8.2) g/dL Albumin (3.5-5.0) g/dL Microbiology - Last 24 Hours (Table) 08/19/22 18:00 Stool Culture - Final Stool 08/19/22 21:07 Gram Stain - Final Sputum Sputum Culture - Final Methicillin resist S. aureus Ange albicans 08/19/22 22:00 Blood Culture Gram Stain - Preliminary Blood Blood Culture - Preliminary Enterococcus faecium
[2022-08-22 17:16] LABS: ABG Base Excess -7.4 mmol/L; ABG HCO3 20 mmol/L (21-25); ABG Oxygen Saturation 95.9 % (94-97); ABG PCO2 42 mmHg (35-45); ABG PH 7.27 (7.35-7.45); ABG PO2 89 mmHg (83-108); ABG TCO2 21 mmol/L (19-24)
[2022-08-22] MEDS ORDERED: ALBUTEROL NEBULIZED 2.5 MG/3 ML INHALATION PRN (19:19)
[2022-08-22] MEDS ORDERED: IPRATROPIUM 0.5 MG/2.5 ML NEBU INHALATION PRN (19:19)
[2022-08-22] MEDS: IPRATROPIUM 0.5 MG/2.5 ML NEBU INHALATION SCH (19:25)
[2022-08-22] MEDS: ALBUTEROL NEBULIZED 2.5 MG/3 ML INHALATION SCH (19:25)
[2022-08-22] MEDS ORDERED: IPRATROPIUM-ALBUTEROL 3 ML NEB INHALATION SCH (20:00)
[2022-08-22 20:03] LABS: Glucose,Whole Blood 82 mg/dL (70-110)
[2022-08-22] MEDS: LACOSAMIDE IV 100 MG in SODIUM CHLORIDE 0.9% 50 ML IVPB SCH (22:04)
[2022-08-22] MEDS ORDERED: LACOSAMIDE IV 100 MG in SODIUM CHLORIDE 0.9% 50 ML IVPB SCH (23:00)
[2022-08-23] MEDS ORDERED: INSULIN ASPART (NovoLOG) 100 UNIT/ML VIAL SQ ONE
[2022-08-23] MEDS ORDERED: LORazepam 2 MG/ML INJ ONE
[2022-08-23 04:33] LABS: Glucose,Whole Blood 99 mg/dL (70-110)
[2022-08-23 05:33] LABS: Allen Test Performed? Yes
[2022-08-23 05:34] LABS: ABG Base Excess -6.7 mmol/L; ABG HCO3 20 mmol/L (21-25); ABG PCO2 39 mmHg (35-45); ABG PH 7.31 (7.35-7.45); ABG PO2 90 mmHg (83-108); ABG TCO2 21 mmol/L (19-24)
[2022-08-23] MEDS: INSULIN ASPART (NovoLOG) 100 UNIT/ML VIAL SQ SCH ×6 (05:56→23:06)
[2022-08-23 06:08] LABS: Anisocytosis Slight; Basophils # (A) 0.1 k/uL (0-0.2); Basophils % (A) 1 %; Eosinophils % (A) 0 %; HCT 25.2 % (34.0-46.0); HGB 7.5 gm/dL (11.4-16.0); Hypochromasia Moderate; Lymphocytes # (A) 1.4 k/uL (1.0-4.8); Lymphocytes % (A) 9 %; MCH 25.4 pg (25.0-35.0); MCHC 29.7 g/dL (31.0-37.0); MCV 85.7 fL (80.0-100.0); Mean Platelet Volume 9.3; Monocytes # (A) 0.6 k/uL (0-1.0); Monocytes % (A) 4 %; Neutrophils % (A) 85 %; Platelet Count 295 k/uL (150-450); Poikilocytosis Slight; RBC 2.95 m/uL (3.80-5.40); RDW 17.7 % (11.5-15.5); WBC 15.3 k/uL (3.8-10.6)
[2022-08-23] MEDS: NOREPINEPHRINE 32 MG in SODIUM CHLORIDE 0.9% 218 ML IV SCH ×2 (06:13→21:36)
[2022-08-23 06:15] LABS: Albumin 1.6 g/dL (3.5-5.0); Potassium 4.5 mmol/L (3.5-5.1); Total Bilirubin 0.5 mg/dL (0.2-1.3); Total Protein 4.2 g/dL (6.3-8.2)
[2022-08-23 07:01] LABS: Calcium 5.4 mg/dL (8.4-10.2)
[2022-08-23 07:49] LABS: C Reactive Protein 54.9 mg/dL (<1.0)
[2022-08-23] MEDS ORDERED: CALCIUM GLUCONATE IN NACL 1 GM in SALINE 1 100ML.BAG IVPB ONE ×2 (08:00→09:30)
[2022-08-23] MEDS: CEFTOLOZANE/TAZOBACTAM 0.75 GM in SODIUM CHLORIDE 0.9% 100 ML IV SCH ×4 (08:03→23:33)
[2022-08-23] MEDS: AMIODARONE 450 MG in DEXTROSE 5% IN WATER 250 ML IV SCH ×6 (08:04→20:22)
[2022-08-23] MEDS: FORMOTEROL FUMARATE 20 MCG/2 ML NEBU INHALATION SCH ×2 (08:11→20:04)
[2022-08-23] MEDS: IPRATROPIUM 0.5 MG/2.5 ML NEBU INHALATION SCH ×4 (08:11→20:04)
[2022-08-23] MEDS: BUDESONIDE 1 MG/2 ML NEBU INHALATION SCH ×2 (08:11→20:04)
[2022-08-23] MEDS: ALBUTEROL NEBULIZED 2.5 MG/3 ML INHALATION SCH ×4 (08:11→20:04)
[2022-08-23 08:26] LABS: Glucose,Whole Blood 172 mg/dL (70-110)
[2022-08-23] MEDS: PANTOPRAZOLE 40 MG/10 ML VIAL IVP SCH (08:31)
--- NOTE | 2022-08-23 08:31 | XR ---
EXAMINATION TYPE: XR chest 1V portable DATE OF EXAM: 08/23/2022 COMPARISON: 08/22/2022. HISTORY: Shortness of breath TECHNIQUE: Single frontal view of the chest is obtained. FINDINGS: Correlation made with prior x-ray from 08/22/2022. Bibasilar atelectasis and consolidation with possib le small bibasilar pleural effusion. Pneumonia is in the differential. No pneumothorax. Heart appears prominent. Mediastinum is within normal limits. Endotracheal tube, nasogastric tube, and left-sided central line are in stable position. IMPRESSION: No significant change.
[2022-08-23] MEDS: polyethylene glycoL 3350 17 GM POWD.PACK PO SCH ×2 (08:38→21:13)
[2022-08-23] MEDS: TAMSULOSIN 0.4 MG CAP.ER.24H PO SCH (08:38)
[2022-08-23] MEDS: CHLORHEXIDINE GLUCONATE 15 ML CUP MUCOUS MEM SCH ×2 (08:41→21:11)
[2022-08-23] MEDS: INSULIN DETEMIR (LEVEMIR) 100 UNIT/ML SYR SQ SCH ×2 (09:00→13:49)
[2022-08-23] MEDS ORDERED: ALBUMIN HUMAN 25% 50 ML in EMPTY BAG 1 BAG IVPB ONE ×2 (09:30→18:00)
[2022-08-23] MEDS: ANIDULAFUNGIN 100 MG in SODIUM CHLORIDE 0.9% 100 ML IVPB SCH (09:40)
--- NOTE | 2022-08-23 09:44 | P.PN ---
Subjective Progress Note Date: 08/22/22 08/22/2022: Patient was seen for a follow-up. Patient's daughter was also present today. Patient recently had temperature of 100.3. About an hour prior to spiking temperature, patient had some facial twitching, with jaw opening and closing, that lasted for half an hour. No upper extremity movement was noted at that time. Patient continues to be on Keppra 750 mg twice a day. Patient co ntinues to be on high-dose pressors. Patient at present is no code, but full medical treatment. 08/21/2022: Patient initially seen by Dr. Edouard Peres. Please refer to his note for details. Patient is an 87-year-old female with altered mental status. Patient has septic encephalopathy. Patient had a seizure-like activity yesterday at 1:15 PM with head jerking and left arm jerking. Patient was given Ativan 4 mg, and the seizure-like stopped. Patient was given a loading dose of Keppra 1000 mg IV and then maintained on 500 mg twice a day. Patient had again seizure-like activity at 3 AM lasted for 45 minutes and then 5 AM and patient was given another loading dose of 500 mg Keppra. Nurse called me today at around 7:30 AM. It lasted for 20-30 minutes. Patient was again given Valium 4 mg in the seizure- like activity resolved. Patient was started on Vimpat 100 mg twice a day IV PB. EEG was performed today, which was abnormal sleep EEG due to background slowing of moderate degree. Some sharply contoured waves were seen in the left parietal region. No clear-cut epileptiform activity was seen. Objective - Vital Signs Vital signs: Vital Signs Temp 100.3 F H 08/22/22 12:00 Pulse 115 H 08/22/22 14:00 Resp 34 H 08/22/22 14:00 BP 99/52 08/19/22 16:39 Pulse Ox 94 L 08/22/22 14:00 FiO2 40 08/22/22 12:34 Intake & Output 08/21/22 08/22/22 08/22/22 18:59 06:59 18:59 Intake Total 3270.055 6078.196 1209 Output Total 270 560 485 Balance 5666.415 1408.196 724 Weight 130 kg 135.8 kg Intake: IV 276 1401 709 0.9% @ KVO 240 240 160 ACETAMINOPHEN IV (For NPO 100 100 ) 1,000 mg In Empty Bag 1 bag @ 400 mls/hr IVPB Q6HR PRN Rx#:[id number] Ceftolozane/Tazobactam 0. 100 100 75 gm In Sodium Chloride 0.9% 100 ml @ 100 mls/hr IV Q8HR [facility] Rx#:[id number] Dextrose 5% in Water 1, 825 225 000 ml @ 75 mls/hr IV . [id number] [facility] with Sodium Bicarb (1 Meq/ml) 150 ml Rx#:[id number] Pressure Bag 36 36 24 levETIRAcetam IV 750 mg 100 100 In Sodium Chloride 0.9% 100 ml @ 400 mls/hr IVPB Q12HR [facility] Rx#:[id number] Intake, IV Titration 1684.306 513.196 500 Amount Amiodarone 450 mg In 250 250 250 Dextrose 5% in Water 250 ml @ 1 MG/MIN 33.333 mls/ hr IV .Q7H30M [facility] Rx#: [id number] Anidulafungin 100 mg In 200 Sodium Chloride 0.9% 100 ml @ 84 mls/hr IVPB DAILY [facility] Rx#:[id number] Dextrose 5% in Water 1, 600 75 000 ml @ 75 mls/hr IV . [id number] [facility] with Sodium Bicarb (1 Meq/ml) 150 ml Rx#:[id number] Lacosamide IV 100 mg In 200 Sodium Chloride 0.9% 50 ml @ 100 mls/hr IVPB BID [facility] Rx#:[id number] Norepinephrine 32 mg In 81.306 188.196 250 Sodium Chloride 0.9% 218 ml @ 0.5 MCG/KG/MIN 25. 547 mls/hr IV .Q9H48M [facility] Rx#:[id number] Vasopressin 60 unit In 153 Sodium Chloride 0.9% 150 ml @ 0.04 UNITS/MIN 6.12 mls/hr IV .Q24H [facility] Rx#: [id number] levETIRAcetam IV 750 mg 200 In Sodium Chloride 0.9% 100 ml @ 400 mls/hr IVPB Q12HR [facility] Rx#:[id number] Output: Urine 270 360 85 Stool 200 400 Other: Voiding Method Indwelling Catheter Indwelling Catheter Indwelling Catheter ABP, PAP, CO, CI - Last Documented Arterial Blood Pressure 104/44 - Exam Patient is an elderly female, who is comatose. Patient is not on any sedation. Sedation discontinued since 08/16/2022. Patient does not respond to painful stimuli or calling out loudly. No seizure-like activity noticed at this time. Her pupils are equal, round and reacting. Oculocephalics are minimally present. Corneas were slightly present. Patient is on pressors. Reflexes are almost absent. Patient has significant peripheral edema. Patient is slightly cyanotic particularly in the fingertips. - Labs CBC & Chem 7: 08/23/22 04:50 08/23/22 04:50 Labs: Abnormal Lab Results - Last 24 Hours (Table) 08/21/22 08/22/22 08/22/22 Range/Units 16:30 00:25 04:41 WBC (3.8-10.6) k/uL RBC (3.80-5.40) m/uL Hgb (11.4-16.0) gm/dL Hct (34.0-46.0) % MCHC (31.0-37.0) g/dL RDW (11.5-15.5) % ABG pH (7.35-7.45) ABG pO2 (83-108) mmHg ABG HCO3 (21-25) mmol/L ABG O2 Saturation (94-97) % Sodium (137-145) mmol/L Chloride (98-107) mmol/L Carbon Dioxide (22-30) mmol/L BUN (7-17) mg/dL Creatinine (0.52-1.04) mg/dL Glucose (74-99) mg/dL POC Glucose (mg/dL) 162 H 213 H 211 H (70-110) mg/dL Calcium (8.4-10.2) mg/dL Ionized Calcium [place] (4.5-5.3) mg/dL AST (14-36) U/L Alkaline Phosphatase (38-126) U/L Total Protein (6.3-8.2) g/dL Albumin (3.5-5.0) g/dL 08/22/22 08/22/22 08/22/22 Range/Units 05:08 05:10 05:10 WBC 16.5 H (3.8-10.6) k/uL RBC 2.90 L (3.80-5.40) m/uL Hgb 7.8 L (11.4-16.0) gm/dL Hct 25.3 L (34.0-46.0) % MCHC 30.7 L (31.0-37.0) g/dL RDW 17.6 H (11.5-15.5) % ABG pH 7.31 L (7.35-7.45) ABG pO2 65 L (83-108) mmHg ABG HCO3 18 L (21-25) mmol/L ABG O2 Saturation 90.8 L (94-97) % Sodium 136 L (137-145) mmol/L Chloride 109 H (98-107) mmol/L Carbon Dioxide 18 L (22-30) mmol/L BUN 83 H (7-17) mg/dL Creatinine 1.79 H (0.52-1.04) mg/dL Glucose 185 H (74-99) mg/dL POC Glucose (mg/dL) (70-110) mg/dL Calcium 5.9 L* (8.4-10.2) mg/dL Ionized Calcium [place] (4.5-5.3) mg/dL AST 53 H (14-36) U/L Alkaline Phosphatase 185 H (38-126) U/L Total Protein 4.1 L (6.3-8.2) g/dL Albumin 1.6 L (3.5-5.0) g/dL 08/22/22 08/22/22 08/22/22 Range/Units 08:42 09:15 12:32 WBC (3.8-10.6) k/uL RBC (3.80-5.40) m/uL Hgb (11.4-16.0) gm/dL Hct (34.0-46.0) % MCHC (31.0-37.0) g/dL RDW (11.5-15.5) % ABG pH (7.35-7.45) ABG pO2 (83-108) mmHg ABG HCO3 (21-25) mmol/L ABG O2 Saturation (94-97) % Sodium (137-145) mmol/L Chloride (98-107) mmol/L Carbon Dioxide (22-30) mmol/L BUN (7-17) mg/dL Creatinine (0.52-1.04) mg/dL Glucose (74-99) mg/dL POC Glucose (mg/dL) 150 H 177 H (70-110) mg/dL Calcium (8.4-10.2) mg/dL Ionized Calcium [place] 3.7 L (4.5-5.3) mg/dL AST (14-36) U/L Alkaline Phosphatase (38-126) U/L Total Protein (6.3-8.2) g/dL Albumin (3.5-5.0) g/dL Microbiology - Last 24 Hours (Table) 08/19/22 21:07 Gram Stain - Final Sputum Sputum Culture - Final Methicillin resist S. aureus Ange albicans 08/19/22 22:00 Blood Culture Gram Stain - Preliminary Blood Blood Culture - Preliminary Enterococcus faecium 08/19/22 18:00 Stool Culture - Preliminary Stool Assessment and Plan Assessment: Altered mental status due to primarily septic encephalopathy. Also has some component of metabolic encephalopathy with worsening of the kidney function. Has been off sedation for 5 days. Probable perforated viscus with pneumoperitoneum. Septicemia, with high temperature, leukocytosis and blood culture positive with enterococcus faecium. White cells improving. Probable hepatic encephalopathy with elevated ammonia 214. Sepsis shock requiring pressor support and seems has urinary tract infection with urine culture positive for Enterococcus faecalis and Pseudomonas aeruginosa as well as systemic candidiasis Atrial fibrillation on eliquis (which has hx of afib) , currently on hold. Acute on chronic hypoxemic respiratory failure secondary selected diastolic congestive heart failure requiring intubation mechanical ventilation Acute on chronic kidney disease trending down History of TIAs/stroke History of coronary artery disease with stent Hypertension Hyperlipidemia Diabetes mellitus Anemia Hypocalcemia Plan: * EEG was performed today, which was abnormal sleep EEG due to background slowing of moderate degree. Some sharply contoured waves were seen in the right and left parietal region, which did not appear clearly epileptiform in morphology. No electrographic seizure was recorded. * Patient was given 1 dose of Vimpat 100 mg empirically. After examination, and EEG, it appears patient's tremors could be related to chills/rigors from septicemia. Doubt seizures. We will stop Vimpat, continue Keppra 750-twice a day empirically. * Discontinue Ativan. * CT of the head revealed generalized cerebral atrophy without acute intracranial process. I personally reviewed CT head, agree with the findings. * Ammonia 214 (normal <30). IM/critical care to address. Repeat ammonia level. * CT abdomen revealed possibility of perforated viscus. Surgery on board. Patient not a candidate for surgery because of hemodynamic instability. * Patient is on pressor support and recommend avoiding hypotensive episode which can the results in watershed infarcts * ID team is on board * We'll defer the rest of medical management to primary and ICU team * The patient condition is very critical. * Plan discussed with the patient's daughter who was at bedside and her nurse. * We will check prolonged, 2.5 hours EEG. Continue Ativan 1-2 mg IV every 4 hours when necessary seizures.
[2022-08-23] MEDS: LACOSAMIDE IV 100 MG in SODIUM CHLORIDE 0.9% 50 ML IVPB SCH (09:45)
[2022-08-23] MEDS: levETIRAcetam IV 750 MG in SODIUM CHLORIDE 0.9% 100 ML IVPB SCH (09:58)
--- NOTE | 2022-08-23 10:09 | P.PN ---
Subjective Patient is seen in follow-up for acute kidney injury. Renal function worse. Urine output did improve with IV Lasix given yesterday but then taper down overnight. Intubated. Currently on Levophed and vasopressin. On bicarb drip. Recent blood culture positive for enterococcus. CAT scan showed pneumoperitoneum. On amiodarone drip for A. fib. Undergoing EEG. Vital signs are stable. On vasopressor support. General: Resting in bed. HEENT: Intubated. LUNGS: Breath sounds decreased. HEART: Irregular rate and rhythm. ABDOMEN: Distention noted. EXTREMITITES: 2+ edema. Objective - Vital Signs Vital signs: Vital Signs Temp 98.4 F 08/23/22 04:00 Pulse 109 H 08/23/22 08:00 Resp 27 H 08/23/22 08:00 BP 99/52 08/19/22 16:39 Pulse Ox 95 08/23/22 07:00 FiO2 50 08/23/22 07:43 Intake & Output 08/22/22 08/23/22 08/23/22 18:59 06:59 18:59 Intake Total 1324 1957.068 23 Output Total 870 410 15 Balance 454 1547.068 8 Weight 138.3 kg Intake: IV 824 1303 23 0.9% @ KVO 260 220 20 ACETAMINOPHEN IV (For NPO 100 ) 1,000 mg In Empty Bag 1 bag @ 400 mls/hr IVPB Q6HR PRN Rx#:[id number] Ceftolozane/Tazobactam 0. 100 75 gm In Sodium Chloride 0.9% 100 ml @ 100 mls/hr IV Q8HR [facility] Rx#:[id number] Dextrose 5% in Water 1, 225 750 000 ml @ 75 mls/hr IV . [id number] [facility] with Sodium Bicarb (1 Meq/ml) 150 ml Rx#:[id number] Lacosamide IV 100 mg In 200 Sodium Chloride 0.9% 50 ml @ 100 mls/hr IVPB BID [facility] Rx#:[id number] Pressure Bag 39 33 3 levETIRAcetam IV 750 mg 100 100 In Sodium Chloride 0.9% 100 ml @ 400 mls/hr IVPB Q12HR [facility] Rx#:[id number] Intake, IV Titration 500 654.068 Amount Amiodarone 450 mg In 250 250 Dextrose 5% in Water 250 ml @ 1 MG/MIN 33.333 mls/ hr IV .Q7H30M [facility] Rx#: [id number] Norepinephrine 32 mg In 250 404.068 Sodium Chloride 0.9% 218 ml @ 0.5 MCG/KG/MIN 25. 547 mls/hr IV .Q9H48M [facility] Rx#:[id number] Output: Urine 270 410 15 Stool 600 Other: Voiding Method Indwelling Catheter Indwelling Catheter ABP, PAP, CO, CI - Last Documented Arterial Blood Pressure 110/46 - Labs CBC & Chem 7: 08/23/22 04:50 08/23/22 04:50 Labs: Abnormal Lab Results - Last 24 Hours (Table) 08/22/22 08/22/22 08/22/22 Range/Units 09:15 12:32 17:11 WBC (3.8-10.6) k/uL RBC (3.80-5.40) m/uL Hgb (11.4-16.0) gm/dL Hct (34.0-46.0) % MCHC (31.0-37.0) g/dL RDW (11.5-15.5) % Neutrophils # (1.3-7.7) k/uL ABG pH 7.27 L (7.35-7.45) ABG HCO3 20 L (21-25) mmol/L Sodium (137-145) mmol/L Chloride (98-107) mmol/L Carbon Dioxide (22-30) mmol/L BUN (7-17) mg/dL Creatinine (0.52-1.04) mg/dL Glucose (74-99) mg/dL POC Glucose (mg/dL) 177 H (70-110) mg/dL Calcium (8.4-10.2) mg/dL Ionized Calcium [place] 3.7 L (4.5-5.3) mg/dL AST (14-36) U/L Alkaline Phosphatase (38-126) U/L C-Reactive Protein (<1.0) mg/dL Total Protein (6.3-8.2) g/dL Albumin (3.5-5.0) g/dL 08/23/22 08/23/22 08/23/22 Range/Units 04:48 04:50 04:50 WBC 15.3 H (3.8-10.6) k/uL RBC 2.95 L (3.80-5.40) m/uL Hgb 7.5 L (11.4-16.0) gm/dL Hct 25.2 L (34.0-46.0) % MCHC 29.7 L (31.0-37.0) g/dL RDW 17.7 H (11.5-15.5) % Neutrophils # 13.0 H (1.3-7.7) k/uL ABG pH 7.31 L (7.35-7.45) ABG HCO3 20 L (21-25) mmol/L Sodium 136 L (137-145) mmol/L Chloride 108 H (98-107) mmol/L Carbon Dioxide 19 L (22-30) mmol/L BUN 83 H (7-17) mg/dL Creatinine 2.13 H (0.52-1.04) mg/dL Glucose 117 H (74-99) mg/dL POC Glucose (mg/dL) (70-110) mg/dL Calcium 5.4 L* (8.4-10.2) mg/dL Ionized Calcium [place]esa (4.5-5.3) mg/dL AST 96 H (14-36) U/L Alkaline Phosphatase 175 H (38-126) U/L C-Reactive Protein 54.9 H (<1.0) mg/dL Total Protein 4.2 L (6.3-8.2) g/dL Albumin 1.6 L (3.5-5.0) g/dL 08/23/22 08/23/22 Range/Units 08:23 08:25 WBC (3.8-10.6) k/uL RBC (3.80-5.40) m/uL Hgb (11.4-16.0) gm/dL Hct (34.0-46.0) % MCHC (31.0-37.0) g/dL RDW (11.5-15.5) % Neutrophils # (1.3-7.7) k/uL ABG pH (7.35-7.45) ABG HCO3 (21-25) mmol/L Sodium (137-145) mmol/L Chloride (98-107) mmol/L Carbon Dioxide (22-30) mmol/L BUN (7-17) mg/dL Creatinine (0.52-1.04) mg/dL Glucose (74-99) mg/dL POC Glucose (mg/dL) 172 H (70-110) mg/dL Calcium (8.4-10.2) mg/dL Ionized Calcium [place] 3.4 L* (4.5-5.3) mg/dL AST (14-36) U/L Alkaline Phosphatase (38-126) U/L C-Reactive Protein (<1.0) mg/dL Total Protein (6.3-8.2) g/dL Albumin (3.5-5.0) g/dL Microbiology - Last 24 Hours (Table) 08/19/22 18:00 Stool Culture - Final Stool 08/19/22 21:07 Gram Stain - Final Sputum Sputum Culture - Final Methicillin resist S. aureus Ange albicans 08/19/22 22:00 Blood Culture Gram Stain - Preliminary Blood Blood Culture - Preliminary Enterococcus faecium Assessment and Plan Plan: Assessment: 1. Acute kidney injury secondary to ATN secondary to septic shock. Baseline creatinine near 0.8 from June 2022 - peaked at 2.77 this admission - 2.13 today. Urine output 15-20 mL an hour. No hydronephrosis noted on CAT scan. 2. Septic shock secondary to UTI, fungemia and bacteremia. CAT scan done in 08/20/2022 showed pneumoperitoneum. On antibiotics/antifungal and vasopressor support. 3. Metabolic acidosis secondary to acute kidney injury. On bicarb drip. 4. Hypokalemia from poor intake and diuresis. Improved. 5. Acute hypoxic respiratory failure. 6. A. fib with RVR. On amiodarone drip. Cardiology following. 8. Hypernatremia from lack of oral water intake. Status post water flushes. Improved. 9. Hypocalcemia secondary to acute kidney injury. Corrected calcium is normal. Ionized calcium is low. Plan: Maintain bicarb drip. 25 g IV albumin 2 doses today. Add IV Lasix 80 mg once daily. Calcium being replaced. Wean FiO2 and vasopressors. Avoid nephrotoxins. Continue to monitor renal function and urine output. Continue to assess daily for need for renal replacement therapy. No urgency at this time. Patient remains hemodynamically unstable. Prognosis guarded.
[2022-08-23] MEDS ORDERED: FUROSEMIDE 10 MG/ML 10 ML VIAL IV ONE (11:00)
[2022-08-23 11:53] LABS: Glucose,Whole Blood 165 mg/dL (70-110)
[2022-08-23] MEDS: DAPTOmycin 500 MG in SODIUM CHLORIDE 0.9% 50 ML IVPB SCH (11:57)
--- NOTE | 2022-08-23 14:20 | P.PN ---
Subjective Progress Note Date: 08/23/22 Principal diagnosis: Sepsis/septic shock Patient is a 87-year-old female with multiple comorbidities presented to the hospital with a syncopal episode weakness subsequently hypotension, sepsis requiring transfer to the ICU and intubation on the vent. She patient did have a CT of abdominal pelvis completed on 08/20/2022 with evidence of pneumoperitoneum Gen. surgery discussed with the family currently being treated medically On today's evaluation that is 08/23/2022, the patient fever pattern has improved last temperature of 100.4 around midnight and is afebrile this morning, the patient is currently requiring requiring max pressor support to maintain her blood pressure per the nursing staff, the patient FiO2 is currently stable at 40 %, no significant purulent secretions through the ET , patient did have NG to suction and did have a fecal management system for her diarrhea, no other changes reported Objective - Vital Signs Vital signs: Vital Signs Temp 98.4 F 08/23/22 04:00 Pulse 109 H 08/23/22 08:00 Resp 27 H 08/23/22 08:00 BP 99/52 08/19/22 16:39 Pulse Ox 95 08/23/22 07:00 FiO2 50 08/23/22 07:43 Intake & Output 08/22/22 08/23/22 08/23/22 18:59 06:59 18:59 Intake Total 1324 1957.068 23 Output Total 870 410 15 Balance 454 1547.068 8 Weight 138.3 kg Intake: IV 824 1303 23 0.9% @ KVO 260 220 20 ACETAMINOPHEN IV (For NPO 100 ) 1,000 mg In Empty Bag 1 bag @ 400 mls/hr IVPB Q6HR [facility] Rx#:[id number] Ceftolozane/Tazobactam 0. 100 75 gm In Sodium Chloride 0.9% 100 ml @ 100 mls/hr IV Q8HR [facility] Rx#:[id number] Dextrose 5% in Water 1, 225 750 000 ml @ 75 mls/hr IV . [id number] [facility] with Sodium Bicarb (1 Meq/ml) 150 ml Rx#:[id number] Lacosamide IV 100 mg In 200 Sodium Chloride 0.9% 50 ml @ 100 mls/hr IVPB BID [facility] Rx#:[id number] Pressure Bag 39 33 3 levETIRAcetam IV 750 mg 100 100 In Sodium Chloride 0.9% 100 ml @ 400 mls/hr IVPB Q12HR [facility] Rx#:[id number] Intake, IV Titration 500 654.068 Amount Amiodarone 450 mg In 250 250 Dextrose 5% in Water 250 ml @ 1 MG/MIN 33.333 mls/ hr IV .Q7H30M [facility] Rx#: [id number] Norepinephrine 32 mg In 250 404.068 Sodium Chloride 0.9% 218 ml @ 0.5 MCG/KG/MIN 25. 547 mls/hr IV .Q9H48M [facility] Rx#:[id number] Output: Urine 270 410 15 Stool 600 Other: Voiding Method Indwelling Catheter Indwelling Catheter ABP, PAP, CO, CI - Last Documented Arterial Blood Pressure 110/46 - Exam GENERAL DESCRIPTION: An elderly female intubated on the vent RESPIRATORY SYSTEM: Unlabored breathing , decreased breath sounds at bases HEART: S1 S2 regular rate and rhythm , ABDOMEN: Soft , abdominal distention EXTREMITIES: Lower extremity swelling no redness - Labs CBC & Chem 7: 08/23/22 04:50 08/23/22 04:50 Labs: Abnormal Lab Results - Last 24 Hours (Table) 08/22/22 08/22/22 08/22/22 Range/Units 09:15 12:32 17:11 WBC (3.8-10.6) k/uL RBC (3.80-5.40) m/uL Hgb (11.4-16.0) gm/dL Hct (34.0-46.0) % MCHC (31.0-37.0) g/dL RDW (11.5-15.5) % Neutrophils # (1.3-7.7) k/uL ABG pH 7.27 L (7.35-7.45) ABG HCO3 20 L (21-25) mmol/L Sodium (137-145) mmol/L Chloride (98-107) mmol/L Carbon Dioxide (22-30) mmol/L BUN (7-17) mg/dL Creatinine (0.52-1.04) mg/dL Glucose (74-99) mg/dL POC Glucose (mg/dL) 177 H (70-110) mg/dL Calcium (8.4-10.2) mg/dL Ionized Calcium [place] 3.7 L (4.5-5.3) mg/dL AST (14-36) U/L Alkaline Phosphatase (38-126) U/L C-Reactive Protein (<1.0) mg/dL Total Protein (6.3-8.2) g/dL Albumin (3.5-5.0) g/dL 08/23/22 08/23/22 08/23/22 Range/Units 04:48 04:50 04:50 WBC 15.3 H (3.8-10.6) k/uL RBC 2.95 L (3.80-5.40) m/uL Hgb 7.5 L (11.4-16.0) gm/dL Hct 25.2 L (34.0-46.0) % MCHC 29.7 L (31.0-37.0) g/dL RDW 17.7 H (11.5-15.5) % Neutrophils # 13.0 H (1.3-7.7) k/uL ABG pH 7.31 L (7.35-7.45) ABG HCO3 20 L (21-25) mmol/L Sodium 136 L (137-145) mmol/L Chloride 108 H (98-107) mmol/L Carbon Dioxide 19 L (22-30) mmol/L BUN 83 H (7-17) mg/dL Creatinine 2.13 H (0.52-1.04) mg/dL Glucose 117 H (74-99) mg/dL POC Glucose (mg/dL) (70-110) mg/dL Calcium 5.4 L* (8.4-10.2) mg/dL Ionized Calcium [place]esa (4.5-5.3) mg/dL AST 96 H (14-36) U/L Alkaline Phosphatase 175 H (38-126) U/L C-Reactive Protein 54.9 H (<1.0) mg/dL Total Protein 4.2 L (6.3-8.2) g/dL Albumin 1.6 L (3.5-5.0) g/dL 08/23/22 08/23/22 Range/Units 08:23 08:25 WBC (3.8-10.6) k/uL RBC (3.80-5.40) m/uL Hgb (11.4-16.0) gm/dL Hct (34.0-46.0) % MCHC (31.0-37.0) g/dL RDW (11.5-15.5) % Neutrophils # (1.3-7.7) k/uL ABG pH (7.35-7.45) ABG HCO3 (21-25) mmol/L Sodium (137-145) mmol/L Chloride (98-107) mmol/L Carbon Dioxide (22-30) mmol/L BUN (7-17) mg/dL Creatinine (0.52-1.04) mg/dL Glucose (74-99) mg/dL POC Glucose (mg/dL) 172 H (70-110) mg/dL Calcium (8.4-10.2) mg/dL Ionized Calcium [place] 3.4 L* (4.5-5.3) mg/dL AST (14-36) U/L Alkaline Phosphatase (38-126) U/L C-Reactive Protein (<1.0) mg/dL Total Protein (6.3-8.2) g/dL Albumin (3.5-5.0) g/dL Microbiology - Last 24 Hours (Table) 08/19/22 18:00 Stool Culture - Final Stool 08/19/22 21:07 Gram Stain - Final Sputum Sputum Culture - Final Methicillin resist S. aureus Ange albicans 08/19/22 22:00 Blood Culture Gram Stain - Preliminary Blood Blood Culture - Preliminary Enterococcus faecium Assessment and Plan (1) Sepsis Current Visit: Yes Status: Acute Code(s): A41.9 - SEPSIS, UNSPECIFIED ORGANISM SNOMED Code(s): 94462308 Plan: 1patient was in the hospital with sepsis and septic shock initially concern for multidrug-resistant Pseudomonas UTI, patient also have a candidemia secondary to possible abdominal source and now with a VRE bacteremia source likely abdominal 2patient did have evidence of colonic perforation and peritonitis being managed medically as the patient considered to be high risk for any surgical procedure 3patient clinical condition remains to be critical and to continue with the current treatment of daptomycin Zerbexa and Eraxis and monitor clinical course closely Time with Patient: Less than 30
--- NOTE | 2022-08-23 14:31 | P.PN ---
Subjective Progress Note Date: 08/22/22 H&P Date: 08/09/22 Chief Complaint: Shortness of breath,Altered mental statConstipation, syncope, hyperglycemia This is a pleasant 87-year-old female with past medical history of CAD, VT, stent placement, aortic stenosis ,chronic hypoxic respiratory failure,on 2 L nasal cannula ,[place]ov[place] 06/22,COPD, former nicotine dependence, obstructive sleep apnea ,CVA/TIA, diabetes mellitus, hypertension, hyperlipidemia, hypothyroidism, recurrent UTIs,CKD III, urinary retention, anemia, bilateral peripheral neuropathy, gait dysfunction,utilizing walker, falls, morbid obesity-BMI 39.9 and multiple other medical issues brought in via ambulance, on BiPAP to the ER for change in level of consciousness, syncope, nausea, vomiting, hyperglycemia, constipation-on [place], shortness of breath, recently discharged from [facility] subacute rehab on 08/06/2022. Information being obtained from chart and daughter at bedside. Daughter reports they are unsure of her last bowel movement, possibly , 08/03. [facility] documented large bowel movement on 08/04 and 08/05. Reports yesterday blood sugars were running high in the 400s, patient developed nausea and vomiting, change in sensorium, passed out while on the toilet. Reports patient "coughs all the time, but has COPD", no knowledge of fevers, denies chills. Denies chest pain, palpitations, positive shortness of breath. Developed hypotension in the ER in addition to emesis, received fluid bolus .Chest x-ray reported right basilar infiltrate with persistent small right effusion, no overt failure. EKG reported sinus rhythm, troponin negative 1. KUB reported marked gastric distention, additional small bowel loops dilated, possibly retained debris within the rectum and sigmoid colon. 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 NG tube placed in the ER with 1200 MLS bilious output reported overnight. D-dimer elevated 4.73, CT angio chest reported no evidence of pulmonary embolism,more consolidation changes in the right lung base, rule out aspiration. ProBNP 426. UA reported many WBC clumps, 165 WBCs, large leukocytes, negative nitrates, culture pending. Afebrile, on admission temperature 96.7, currently 98.8. WBC 14.3. lactic acid 3.5, repeat level pending. Hemoglobin 10.2, platelets 4:15, a I's within normal limits, BUN 40, creatinine 1.5. BiPAP weaned off, currently requiring 6 L nasal cannula O2 to maintain O2 sats in the low 90s. 08/10/22 Continued to decline throughout the night requiring ICU admission, maintained on vasopressin, Levophed and bicarb drips. Received fluid boluses throughout the night. Lactic acid decreased to 2.1. Low urine output on Lasix IV push. BUN 81, creatinine 2.68. Hyperkalemic, received calcium, insulin, D50, sodium bicarbonate. Chest x-ray reporting stable bilateral lower lobe infiltrate and small effusion. Afebrile, T-max 99.7. Continues on Levaquin, WBC normalized today. Cefepime added to antibiotic regimen today. Preliminary Urine cultures reporting group D enterococcus 50-100,000 colonies and gram-negative bacilli 10 and 49,000 colonies. 07/03 Blood cultures reporting GNB. Hemoglobin 8.2, platelets 311. 08/11/2022 Vent dependent, FiO2 60%/+5 of PEEP. Chest x-ray reports stable, no change in bibasilar opacities, pleural effusion unchanged. Continues on the Levophed and vasopressin drips. Febrile to the night, T-max 102.4, WBC increased to 12.2. Lactic acid trended up during the night, received fluid boluses, currently at 3.2. Developed atrial fibrillation with RVR, bolused with amiodarone and currently on amiodarone drip. Urine culture reporting enterococcus faecalis and Pseudomonas aeruginosa.Films reviewed by general surgery, reporting sigmoid volvulus. Recommending conservative management. BUN 79, creatinine 2.74. Hyperglycemic. Hemoglobin 8.6, platelets 349. Anticoagulation remains on hold. 08/21/2022 remains vent dependent, FiO2 50%/+5 of PEEP. Maintained on high doses of levophed, vasopressin. Amiodarone and bicarb drips continue. Receiving IV albumin to be followed by Lasix. Worsening renal function. Staff reports no urine output 24 hours. Bicarb 16, BUN 76, creatinine 1.73. Repeat CT of abdomen and pelvis completed yesterday, reporting moderate volume pneumo peritoneum, suspected perforation of distal colonic bowel, extensive distal bowel pneumatosis. Surgery discussed findings with family, high risk for surgical intervention. Family decided against surgical intervention,but to continue with nonsurgical care. T-max 100.6. Maintained on Zerbaxa, Eraxis, daptomycin .Seizure-like activity reported yesterday afternoon, placed on Keppra, reoccurred in the eyeletter hours 2. Brain CT reported no acute intracranial process .EEG completed, results pending. 08/22/2022 vent dependent, 40% FiO2, +5 of PEEP. Staff reports patient desats quickly with turning. Chest x-ray reporting bibasilar atelectasis, consolidation, minimally increased, possible tiny right basilar pleural effusion. Continues on high doses of pressors, digits dusky. Maintained on bicarb drip. Telemetry atrial fibrillation, fast ventricular rate on amiodarone drip. Remains on antibiotics as per infectious disease. BUN 83, creatinine 1.79. T-max 102, WBC decreased to 15.3. Objective - Vital Signs Vital signs: Vital Signs Temp 100.3 F H 08/22/22 12:00 Pulse 115 H 08/22/22 14:00 Resp 34 H 08/22/22 14:00 BP 99/52 08/19/22 16:39 Pulse Ox 94 L 08/22/22 14:00 FiO2 40 08/22/22 12:34 Intake & Output 08/21/22 08/22/22 08/22/22 18:59 06:59 18:59 Intake Total 1988.820 0971.196 1209 Output Total 270 560 485 Balance 6700.980 8905.196 724 Weight 130 kg 135.8 kg Intake: IV 276 1401 709 0.9% @ KVO 240 240 160 ACETAMINOPHEN IV (For NPO 100 100 ) 1,000 mg In Empty Bag 1 bag @ 400 mls/hr IVPB Q6HR PRN Rx#:[id number] Ceftolozane/Tazobactam 0. 100 100 75 gm In Sodium Chloride 0.9% 100 ml @ 100 mls/hr IV Q8HR [facility] Rx#:[id number] Dextrose 5% in Water 1, 825 225 000 ml @ 75 mls/hr IV . [id number] [facility] with Sodium Bicarb (1 Meq/ml) 150 ml Rx#:[id number] Pressure Bag 36 36 24 levETIRAcetam IV 750 mg 100 100 In Sodium Chloride 0.9% 100 ml @ 400 mls/hr IVPB Q12HR [facility] Rx#:[id number] Intake, IV Titration 1684.306 513.196 500 Amount Amiodarone 450 mg In 250 250 250 Dextrose 5% in Water 250 ml @ 1 MG/MIN 33.333 mls/ hr IV .Q7H30M [facility] Rx#: [id number] Anidulafungin 100 mg In 200 Sodium Chloride 0.9% 100 ml @ 84 mls/hr IVPB DAILY [facility] Rx#:[id number] Dextrose 5% in Water 1, 600 75 000 ml @ 75 mls/hr IV . [id number] [facility] with Sodium Bicarb (1 Meq/ml) 150 ml Rx#:[id number] Lacosamide IV 100 mg In 200 Sodium Chloride 0.9% 50 ml @ 100 mls/hr IVPB BID [facility] Rx#:[id number] Norepinephrine 32 mg In 81.306 188.196 250 Sodium Chloride 0.9% 218 ml @ 0.5 MCG/KG/MIN 25. 547 mls/hr IV .Q9H48M [facility] Rx#:[id number] Vasopressin 60 unit In 153 Sodium Chloride 0.9% 150 ml @ 0.04 UNITS/MIN 6.12 mls/hr IV .Q24H [facility] Rx#: [id number] levETIRAcetam IV 750 mg 200 In Sodium Chloride 0.9% 100 ml @ 400 mls/hr IVPB Q12HR [facility] Rx#:[id number] Output: Urine 270 360 85 Stool 200 400 Other: Voiding Method Indwelling Catheter Indwelling Catheter Indwelling Catheter ABP, PAP, CO, CI - Last Documented Arterial Blood Pressure 104/44 - Exam GENERAL EXAM: on mechanical ventilation, off of sedation, HEENT: Normocephalic. Sluggish pupils,NG present NECK: soft, unable to assess for JVD. LUNGS: Equal air entry with bilateral bases diminished, fine crackles in bilateral bases. CV: S1 and S2 normal with no audible murmur, irregular rhythm. Systolic murmur. ABDOMEN:Distended SKIN: No rashes, CENTRAL NERVOUS SYSTEM: Unable to assess, comotose on mechanical ventilation EXTREMITIES: Positive peripheral edema, dusky digits. - Labs CBC & Chem 7: 08/23/22 04:50 08/23/22 04:50 Labs: Abnormal Lab Results - Last 24 Hours (Table) 08/21/22 08/22/22 08/22/22 Range/Units 16:30 00:25 04:41 WBC (3.8-10.6) k/uL RBC (3.80-5.40) m/uL Hgb (11.4-16.0) gm/dL Hct (34.0-46.0) % MCHC (31.0-37.0) g/dL RDW (11.5-15.5) % ABG pH (7.35-7.45) ABG pO2 (83-108) mmHg ABG HCO3 (21-25) mmol/L ABG O2 Saturation (94-97) % Sodium (137-145) mmol/L Chloride (98-107) mmol/L Carbon Dioxide (22-30) mmol/L BUN (7-17) mg/dL Creatinine (0.52-1.04) mg/dL Glucose (74-99) mg/dL POC Glucose (mg/dL) 162 H 213 H 211 H (70-110) mg/dL Calcium (8.4-10.2) mg/dL Ionized Calcium [place] (4.5-5.3) mg/dL AST (14-36) U/L Alkaline Phosphatase (38-126) U/L Total Protein (6.3-8.2) g/dL Albumin (3.5-5.0) g/dL 08/22/22 08/22/22 08/22/22 Range/Units 05:08 05:10 05:10 WBC 16.5 H (3.8-10.6) k/uL RBC 2.90 L (3.80-5.40) m/uL Hgb 7.8 L (11.4-16.0) gm/dL Hct 25.3 L (34.0-46.0) % MCHC 30.7 L (31.0-37.0) g/dL RDW 17.6 H (11.5-15.5) % ABG pH 7.31 L (7.35-7.45) ABG pO2 65 L (83-108) mmHg ABG HCO3 18 L (21-25) mmol/L ABG O2 Saturation 90.8 L (94-97) % Sodium 136 L (137-145) mmol/L Chloride 109 H (98-107) mmol/L Carbon Dioxide 18 L (22-30) mmol/L BUN 83 H (7-17) mg/dL Creatinine 1.79 H (0.52-1.04) mg/dL Glucose 185 H (74-99) mg/dL POC Glucose (mg/dL) (70-110) mg/dL Calcium 5.9 L* (8.4-10.2) mg/dL Ionized Calcium [place] (4.5-5.3) mg/dL AST 53 H (14-36) U/L Alkaline Phosphatase 185 H (38-126) U/L Total Protein 4.1 L (6.3-8.2) g/dL Albumin 1.6 L (3.5-5.0) g/dL 08/22/22 08/22/22 08/22/22 Range/Units 08:42 09:15 12:32 WBC (3.8-10.6) k/uL RBC (3.80-5.40) m/uL Hgb (11.4-16.0) gm/dL Hct (34.0-46.0) % MCHC (31.0-37.0) g/dL RDW (11.5-15.5) % ABG pH (7.35-7.45) ABG pO2 (83-108) mmHg ABG HCO3 (21-25) mmol/L ABG O2 Saturation (94-97) % Sodium (137-145) mmol/L Chloride (98-107) mmol/L Carbon Dioxide (22-30) mmol/L BUN (7-17) mg/dL Creatinine (0.52-1.04) mg/dL Glucose (74-99) mg/dL POC Glucose (mg/dL) 150 H 177 H (70-110) mg/dL Calcium (8.4-10.2) mg/dL Ionized Calcium [place] 3.7 L (4.5-5.3) mg/dL AST (14-36) U/L Alkaline Phosphatase (38-126) U/L Total Protein (6.3-8.2) g/dL Albumin (3.5-5.0) g/dL Microbiology - Last 24 Hours (Table) 08/19/22 21:07 Gram Stain - Final Sputum Sputum Culture - Final Methicillin resist S. aureus Ange albicans 08/19/22 22:00 Blood Culture Gram Stain - Preliminary Blood Blood Culture - Preliminary Enterococcus faecium 08/19/22 18:00 Stool Culture - Preliminary Stool Assessment and Plan Assessment: Sepsis, septic shock secondary to acute enterococcus faecalis and Pseudomonas aeruginosa UTI, with acute bacteremia, anaerobic GNB, repeat blood culture growing yeast, now VRE bacteremia (in a patient with history of urinary retention, recurrent UTIs, most recently with Klebsiella pneumoniae and e nterococcus cloacae.),abdominal source, and possibly pneumonia. Hypotension secondary to the above, pressor dependent Fevers Acute on chronic hypoxic respiratory failure, ventilator dependent, wears 2 L nasal cannula O2 ATC at home, related to possible acute chronic CHF exacerbation, diastolic dysfunction. Chronic changes of the right lower lobe and small right pleural effusion as per pulmonary Acute on CKD III, secondary to ATN related to the above Atrial fibrillation with RVR, on amiodarone drip In a patient with history of chronic atrial fibrillation Metabolic acidosis, on bicarb drip Altered mental status, Acute metabolic ,septic and hepatic encephalopathy secondary to the above. Abdominal pain, constipation, last bowel movement reported /.Films reviewed by general surgery, reporting sigmoid volvulus. Continued clinical worsening;Probable perforated viscus with pneumoperitoneum reported per CT on 08/20/2022. Syncope, possibly vasovagal, multifactorial, secondary to all the above Lactic acidosis Leukocytosis, worsening Diabetes mellitus, family reports hyperglycemic at home, controlled IP, A1c 6. Recent COVID-19 infection, 06/22 COPD Valvular heart disease, moderate aortic stenosis, preserved LV function Chronic anemia Generalized weakness, gait dysfunction, multiple falls recently reported, recently discharged from [facility] subacute rehab. 08/06/22. History of CVA, TIA History of Hypertension Hyperlipidemia Hypothyroidism Morbid obesity, BMI 39.9 No code, no CPR, no reintubation Plan: Continue on current medication regime ,monitoring and symptomatic treatment. Multiple consults following ;ICU management as per line pilot. Antibiotics as per infectious disease. Prognosis poor, /family now ready for comfort care at this time. The impression and plan of care has been dictated as directed. : I performed a history and examination of this patient, discussed the same with the dictator. I agree with the dictator's note ,documented as a scribe. Any additional findings or plans will be noted.
--- NOTE | 2022-08-23 14:40 | P.PN ---
Subjective Progress Note Date: 08/23/22 Principal diagnosis: Acute on chronic hypoxic respiratory failure secondary to acute diastolic congestive heart failure, and septic shock. With abdominal sepsis and bowel perforation. 08/20/2022, I'm seeing the patient for a follow-up. Since yesterday, the patient has taken a turn to the worse. As of yesterday, the patient started having episodes of fever with a T-max of 103.1. At the same time, the patient's blood pressure was getting more soft and the patient was becoming more hypotensive in the urine output dropped considerably. As such, the patient had to be placed on a higher dose of pressors. The patient was given a total of 2 L of IV fluids. Vancomycin was also added to the regimen as the patient is taking currently a combination of Zerbaxa and Eraxis. On today's evaluation, the patient is still off sedation. The patient is on a mechanical ventilator on assist control mode of mechanical ventilation rate of 28 with a tidal volume of 400 and a PEEP of 5 and FiO2 of 40%. The chest x-ray shows limited bibasilar pulmonary infiltrates. ET tube is in a good location. No signs of any consolidation or pulmonary edema. The blood gas shows a pH of 7.2 with a pCO2 of 33 and a pO2 of 76. As such, the patient has become progressively more acidotic. Hemodynamically, the patient has become more hypotensive and the patient is currently on a combination of vasopressin physiologic dose and a norepinephrine had to be brought up to 0.2 mcg/kg/m. Urine output is extremely low at this point in time. The white cell count has come up to 26.6 from 19.9 a nd the hemoglobin is at 8.7. Noted the patient was given units of packed RBC for a hemoglobin of 6.9 yesterday and hemoglobin is at 8.7 today. The patient has become also acidotic. Urine is at 67 with a creatinine of 1.4. Serum bicarb is at 17 and this is a non-anion gap metabolic acidosis. Sodium is at 141 with a potassium level of 4.7. LFTs are normal. The patient is receiving TPN through a midline in the left upper extremity at the rate of 68 mL an hour. She also has a triple-lumen catheter in the left subclavian. The patient is in a positive fluid balance. The patient is still febrile. The patient is stooling. The laxatives have been discontinued. She is currently has a fecal management system in Place and stool was also sent for C. diff.. The patient is unresponsive to any verbal or painful stimulation at this point in time and she's been off sedation for the past 48 hours. His obvious component of metabolic encephalopathy secondary to ovulation comorbidities. She remains on amiodarone drip at 1 mg/m. She remains in atrial fibrillation. She is on anticoagulation with Eliquis 5 mg by mouth twice a day. Reevaluated today on 08/21/2022, patient remains on the ventilator, intubated mechanically ventilated, on assist control rate 28, volume 400 FiO2 40% PEEP of 5. ABG showed a pO2 of 82 pCO2 34 pH of 7.29, patient was placed on bicarb drip earlier by nephrology. She is maximized on norepinephrine at 0.5 mcg/kg/m she is also on amiodarone 1 mg/m vasopressin at 0.[address] of the abdomen yesterday showed bowel perforation and pneumoperitoneum of blood is positive for enterococcus. Patient is atrial fibrillation with RVR. Family today is at bedside, and had a long discussion with the and the daughter, explained to them that her condition is basically extremely poor, and the patient will not make it considering her new finding of abdominal sepsis. They were made aware yesterday by the surgeon about her bowel perforation, the surgeon and the family felt that she is extremely high surgical risk, hence no surgery was done for her abdominal sepsis and bowel perforation. In the meantime the patient is maximized on pressors she is also on antibiotics, her WBC scan is 17.8 hemoglobin is 8.2 bicarb is 16 BUN is 76 creatinine 1.73. The primary care physician Dr. Hartman talk to the about her condition and he was able to change her CODE STATUS to DO NOT RESUSCITATE CODE STATUS. However the family is still not agreeable to consider comfort care measures. I even suggested stopping the presses and down the line consider comfort care but not yet at this point. Family does not seem to be very agreeable. Patient is on good course of antibiotics, which is also on antifungal therapy. Also on bronchodilators. Being followed by infectious disease and now she is on daptomycin, patient is also on Eraxis, and zerbaxa Patient was reevaluated today on 08/22/22, admitted ICU intubated mechanically ventilated. She is maximized on pressors, she is on assist control rate of 28th of volume 400 FiO2 40% PEEP of 5 ABG showed a pO2 of 65 pCO2 36 pH of 7.31. Patient is on 0.5 g ventricular per minute of norepinephrine 0.04 units per minute of vasopressin remains on bicarb drip, remains on amiodarone 1 mg/m and her normal saline at 100 mL per hour. WBC count is 16.5 hemoglobin is 7.8. Sick metabolic profile is normal renal profile is abnormal with BUN of 83 creatinine 1.79 and remains on antibiotics as per infectious disease on the case. Chest x-ray showed bibasilar atelectasis and consolidations. And small tiny right-sided pleural effusion endotracheal tube and orogastric tube are in proper positions Reevaluated today on patient remains in the ICU, she is intubated and mechanically ventilated. Patient is on assist control rate of 28, tidal volume 400 FiO2 50% PEEP of 5 ABG showed a pO2 of 90 pCO2 39 pH of 7.31. Patient is still maximized on pressors including norepinephrine at 0.5 mcg/kg/m vasopressin at 0.04 units per minute still receiving bicarb 3 A in 1 L of D5W at 75 mL per hour remains on amiodarone at 1 mg/m IV fluid at KVO heart rate is 110 to 130. Chest x-ray showing bibasilar infiltrates/atelectasis and small pleural effusions, not much of a change management analyst the last couple of days. The peak and today's 15.3 hemoglobin is 7.5. Renal profile is abnormal with BUN of 83 creati nine 2.13. Ammonia level is 210. Not much of a change overall in the last 24 hours, patient remains very critically ill. And I believe her condition is mostly futile. is reluctant to consider comfort care measures on this patient. Objective - Vital Signs Vital signs: Vital Signs Temp 98.4 F 08/23/22 04:00 Pulse 114 H 08/23/22 14:00 Resp 28 H 08/23/22 14:00 BP 99/52 08/19/22 16:39 Pulse Ox 95 08/23/22 14:00 FiO2 50 08/23/22 13:00 Intake & Output 08/22/22 08/23/22 08/23/22 18:59 06:59 18:59 Intake Total 1324 8176.947 2403 Output Total 870 410 605 Balance 454 1547.068 459 Weight 138.3 kg 138.3 kg Intake: IV 824 1303 814 0.9% @ KVO 260 220 40 ACETAMINOPHEN IV (For NPO 100 ) 1,000 mg In Empty Bag 1 bag @ 400 mls/hr IVPB Q6HR PRN Rx#:[id number] Ceftolozane/Tazobactam 0. 100 100 75 gm In Sodium Chloride 0.9% 100 ml @ 100 mls/hr IV Q8HR [facility] Rx#:[id number] DAPTOmycin 500 mg In 50 Sodium Chloride 0.9% 50 ml @ 100 mls/hr IVPB Q48H [facility] Rx#:[id number] Dextrose 5% in Water 1, 225 750 450 000 ml @ 75 mls/hr IV . [id number] [facility] with Sodium Bicarb (1 Meq/ml) 150 ml Rx#:[id number] Lacosamide IV 100 mg In 200 50 Sodium Chloride 0.9% 50 ml @ 100 mls/hr IVPB BID [facility] Rx#:[id number] Pressure Bag 39 33 24 levETIRAcetam IV 750 mg 100 100 100 In Sodium Chloride 0.9% 100 ml @ 400 mls/hr IVPB Q12HR [facility] Rx#:[id number] Intake, IV Titration 500 654.068 250 Amount Albumin Human 25% 50 ml 50 In Empty Bag 1 bag @ 50 mls/hr IVPB ONCE ONE Rx#: [id number] Amiodarone 450 mg In 250 250 Dextrose 5% in Water 250 ml @ 1 MG/MIN 33.333 mls/ hr IV .Q7H30M [facility] Rx#: [id number] Calcium Gluconate in NaCl 200 1 gm In Saline 1 100ml. bag @ 100 mls/hr IVPB ONCE ONE Rx#:[id number] Norepinephrine 32 mg In 250 404.068 Sodium Chloride 0.9% 218 ml @ 0.5 MCG/KG/MIN 25. 547 mls/hr IV .Q9H48M [facility] Rx#:[id number] Output: Urine 270 410 205 Stool 600 400 Other: Voiding Method Indwelling Catheter Indwelling Catheter ABP, PAP, CO, CI - Last Documented Arterial Blood Pressure 110/47 - Exam GENERAL EXAM: Intubated, sedated, 87-year-old morbidly obese female, sedated, not in distress intubated and mechanically ventilated HEAD: Normocephalic. EYES: Sluggish reaction of pupils, equal size. NOSE: Nasogastric tube secured in place. Clear with pink turbinates. THROAT: Oral endotracheal tube in place. NECK: No masses, no JVD. CHEST: No chest wall deformity. LUNGS: Equal air entry with crackles in the bilateral bases. CVS: S1 and S2 normal with no audible murmur, irregular rhythm. ABDOMEN: No hepatosplenomegaly, normal bowel sounds, no guarding or rigidity. SKIN: No rashes CENTRAL NERVOUS SYSTEM: Sedated, tone is normal in all 4 extremities. Could not assess. EXTREMITIES: There is 1-2+ peripheral edema. Changes of chronic venous stasis. No clubbing, no cyanosis. Peripheral pulses are intact. - Labs CBC & Chem 7: 08/23/22 04:50 08/23/22 04:50 Labs: Abnormal Lab Results - Last 24 Hours (Table) 08/22/22 08/23/22 08/23/22 Range/Units 17:11 04:48 04:50 WBC 15.3 H (3.8-10.6) k/uL RBC 2.95 L (3.80-5.40) m/uL Hgb 7.5 L (11.4-16.0) gm/dL Hct 25.2 L (34.0-46.0) % MCHC 29.7 L (31.0-37.0) g/dL RDW 17.7 H (11.5-15.5) % Neutrophils # 13.0 H (1.3-7.7) k/uL ABG pH 7.27 L 7.31 L (7.35-7.45) ABG HCO3 20 L 20 L (21-25) mmol/L Sodium (137-145) mmol/L Chloride (98-107) mmol/L Carbon Dioxide (22-30) mmol/L BUN (7-17) mg/dL Creatinine (0.52-1.04) mg/dL Glucose (74-99) mg/dL POC Glucose (mg/dL) (70-110) mg/dL Calcium (8.4-10.2) mg/dL Ionized Calcium [place]esa (4.5-5.3) mg/dL AST (14-36) U/L Alkaline Phosphatase (38-126) U/L Ammonia (<30) umol/L C-Reactive Protein (<1.0) mg/dL Total Protein (6.3-8.2) g/dL Albumin (3.5-5.0) g/dL 08/23/22 08/23/22 08/23/22 Range/Units 04:50 08:23 08:25 WBC (3.8-10.6) k/uL RBC (3.80-5.40) m/uL Hgb (11.4-16.0) gm/dL Hct (34.0-46.0) % MCHC (31.0-37.0) g/dL RDW (11.5-15.5) % Neutrophils # (1.3-7.7) k/uL ABG pH (7.35-7.45) ABG HCO3 (21-25) mmol/L Sodium 136 L (137-145) mmol/L Chloride 108 H (98-107) mmol/L Carbon Dioxide 19 L (22-30) mmol/L BUN 83 H (7-17) mg/dL Creatinine 2.13 H (0.52-1.04) mg/dL Glucose 117 H (74-99) mg/dL POC Glucose (mg/dL) 172 H (70-110) mg/dL Calcium 5.4 L* (8.4-10.2) mg/dL Ionized Calcium [place] 3.4 L* (4.5-5.3) mg/dL AST 96 H (14-36) U/L Alkaline Phosphatase 175 H (38-126) U/L Ammonia (<30) umol/L C-Reactive Protein 54.9 H (<1.0) mg/dL Total Protein 4.2 L (6.3-8.2) g/dL Albumin 1.6 L (3.5-5.0) g/dL 08/23/22 08/23/22 Range/Units 11:40 11:40 WBC (3.8-10.6) k/uL RBC (3.80-5.40) m/uL Hgb (11.4-16.0) gm/dL Hct (34.0-46.0) % MCHC (31.0-37.0) g/dL RDW (11.5-15.5) % Neutrophils # (1.3-7.7) k/uL ABG pH (7.35-7.45) ABG HCO3 (21-25) mmol/L Sodium (137-145) mmol/L Chloride (98-107) mmol/L Carbon Dioxide (22-30) mmol/L BUN (7-17) mg/dL Creatinine (0.52-1.04) mg/dL Glucose (74-99) mg/dL POC Glucose (mg/dL) 165 H (70-110) mg/dL Calcium (8.4-10.2) mg/dL Ionized Calcium [place] (4.5-5.3) mg/dL AST (14-36) U/L Alkaline Phosphatase (38-126) U/L Ammonia 210 H (<30) umol/L C-Reactive Protein (<1.0) mg/dL Total Protein (6.3-8.2) g/dL Albumin (3.5-5.0) g/dL Microbiology - Last 24 Hours (Table) 08/19/22 18:00 Stool Culture - Final Stool 08/19/22 21:07 Gram Stain - Final Sputum Sputum Culture - Final Methicillin resist S. aureus Ange albicans 08/19/22 22:00 Blood Culture Gram Stain - Preliminary Blood Blood Culture - Preliminary Enterococcus faecium Assessment and Plan Assessment: Impression: Acute on chronic hypoxic respiratory failure Acute on chronic diastolic congestive heart failure Abdominal sepsis and septic shock Anion gap metabolic acidosis Urinary tract infection secondary to Enterococcus faecalis and pseudomonas aeruginosa Systemic candidiasis with positive cultures for Ange. Anaerobic gram-negative bacteria in the blood Atrial fibrillation with RVR requiring amiodarone drip Acute on chronic kidney disease Recent history of COVID-19 infection History of valvular heart disease with aortic stenosis Acute on chronic anemia History of underlying COPD History of diastolic congestive heart failure Recommendation: Continue ventilatory support Continue hemodynamic support however would not recommend higher doses of norepinephrine and vasopressin, patient is maximized. Continue present supportive care measures still not ready for comfort care measures Continue antibiotics Continue GI and DVT prophylaxis Considering her ammonia level, will start patient on lactulose. Patient is critically ill We will continue to follow Critical care time is over 30 minutes Time with Patient: Greater than 30
[2022-08-23] MEDS: LACTULOSE 20 GM/30 ML CUP PO SCH ×3 (15:38→23:14)
[2022-08-23] MEDS: LORazepam 2 MG/ML INJ IV PRN ×2 (16:18→23:33)
--- NOTE | 2022-08-23 16:18 | P.PN ---
Subjective Progress Note Date: 08/23/22 CHIEF COMPLAINT: Abdominal pain HISTORY OF PRESENT ILLNESS: Patient remains in the ICU intubated and on m echanical ventilation. Patient remains maximized on pressors. She has a fecal management system in place. She's having low-grade temps. She did have a EEG completed this morning and results are pending. Patient does have a perforated bowel. CODE STATUS is currently no code. Patient's does not feel ready to place patient on hospice. WBC is 15.3 Hgb 7.5 plt 295 sodium 136 potassium 4 .5 creatinine 2.13 elevated ammonia level 210. Critical care service added lactulose for elevated ammonia level. PHYSICAL EXAM: VITAL SIGNS: Reviewed GENERAL: On mechanical ventilation. Office sedation. no acute distress. Head is atraumatic, normocephalic. No nasal drainage. NECK: Supple without lymphadenopathy. CHEST: Non-labored respirations and equal bilateral excursions. CARDIOVASCULAR: Palpable 2+ radial pulses. ABDOMEN: Distended. NG tube with bilious output MUSCULOSKELETAL: No clubbing or cyanosis. ASSESSMENT: 1. Colon perforation 2. Sigmoid volvulus 3. Constipation 4. Sepsis 5. UTI 6. Lactic acidosis 7. Acute on chronic kidney disease 8. History of atrial fibrillation 9. History of CVA 9. Hypokalemia 10. Hypocalcemia 11. Blood culture with yeast PLAN: -Recommend hospice care -No surgical intervention planned -Patient is considered high risk for surgical intervention -Continue TPN for nutrition support -Continue antibiotics -Continue GI and DVT prophylaxis Physician Power Transformer Assembler note has been reviewed by physician. Signing provider agrees with the documented findings, assessment, and plan of care. Objective - Vital Signs Vital signs: Vital Signs Temp 99.8 F H 08/23/22 15:00 Pulse 121 H 08/23/22 15:00 Resp 28 H 08/23/22 15:00 BP 99/52 08/19/22 16:39 Pulse Ox 96 08/23/22 15:00 FiO2 50 08/23/22 16:13 Intake & Output 08/22/22 08/23/22 08/23/22 18:59 06:59 18:59 Intake Total 1324 0904.985 0610 Output Total 870 410 605 Balance 454 1547.068 459 Weight 138.3 kg 138.3 kg Intake: IV 824 1303 814 0.9% @ KVO 260 220 40 ACETAMINOPHEN IV (For NPO 100 ) 1,000 mg In Empty Bag 1 bag @ 400 mls/hr IVPB Q6HR PRN Rx#:[id number] Ceftolozane/Tazobactam 0. 100 100 75 gm In Sodium Chloride 0.9% 100 ml @ 100 mls/hr IV Q8HR [facility] Rx#:[id number] DAPTOmycin 500 mg In 50 Sodium Chloride 0.9% 50 ml @ 100 mls/hr IVPB Q48H [facility] Rx#:[id number] Dextrose 5% in Water 1, 225 750 450 000 ml @ 75 mls/hr IV . [id number] [facility] with Sodium Bicarb (1 Meq/ml) 150 ml Rx#:[id number] Lacosamide IV 100 mg In 200 50 Sodium Chloride 0.9% 50 ml @ 100 mls/hr IVPB BID [facility] [place] Rx#:[id number] Pressure Bag 39 33 24 levETIRAcetam IV 750 mg 100 100 100 In Sodium Chloride 0.9% 100 ml @ 400 mls/hr IVPB Q12HR [facility] [place] Rx#:[id number] Intake, IV Titration 500 654.068 250 Amount Albumin Human 25% 50 ml 50 In Empty Bag 1 bag @ 50 mls/hr IVPB ONCE ONE Rx#: [id number] Amiodarone 450 mg In 250 250 Dextrose 5% in Water 250 ml @ 1 MG/MIN 33.333 mls/ hr IV .Q7H30M [facility] [place] Rx#: [id number] Calcium Gluconate in NaCl 200 1 gm In Saline 1 100ml. bag @ 100 mls/hr IVPB ONCE ONE Rx#:[id number] Norepinephrine 32 mg In 250 404.068 Sodium Chloride 0.9% 218 ml @ 0.5 MCG/KG/MIN 25. 547 mls/hr IV .Q9H48M [facility] [place] Rx#:[id number] Output: Urine 270 410 205 Stool 600 400 Other: Voiding Method Indwelling Catheter Indwelling Catheter Indwelling Catheter ABP, PAP, CO, CI - Last Documented Arterial Blood Pressure 114/48 - Labs CBC & Chem 7: 08/23/22 04:50 08/23/22 04:50 Labs: Abnormal Lab Results - Last 24 Hours (Table) 08/22/22 08/23/22 08/23/22 Range/Units 17:11 04:48 04:50 WBC 15.3 H (3.8-10.6) k/uL RBC 2.95 L (3.80-5.40) m/uL Hgb 7.5 L (11.4-16.0) gm/dL Hct 25.2 L (34.0-46.0) % MCHC 29.7 L (31.0-37.0) g/dL RDW 17.7 H (11.5-15.5) % Neutrophils # 13.0 H (1.3-7.7) k/uL ABG pH 7.27 L 7.31 L (7.35-7.45) ABG HCO3 20 L 20 L (21-25) mmol/L Sodium (137-145) mmol/L Chloride (98-107) mmol/L Carbon Dioxide (22-30) mmol/L BUN (7-17) mg/dL Creatinine (0.52-1.04) mg/dL Glucose (74-99) mg/dL POC Glucose (mg/dL) (70-110) mg/dL Calcium (8.4-10.2) mg/dL Ionized Calcium [place] (4.5-5.3) mg/dL AST (14-36) U/L Alkaline Phosphatase (38-126) U/L Ammonia (<30) umol/L C-Reactive Protein (<1.0) mg/dL Total Protein (6.3-8.2) g/dL Albumin (3.5-5.0) g/dL 08/23/22 08/23/22 08/23/22 Range/Units 04:50 08:23 08:25 WBC (3.8-10.6) k/uL RBC (3.80-5.40) m/uL Hgb (11.4-16.0) gm/dL Hct (34.0-46.0) % MCHC (31.0-37.0) g/dL RDW (11.5-15.5) % Neutrophils # (1.3-7.7) k/uL ABG pH (7.35-7.45) ABG HCO3 (21-25) mmol/L Sodium 136 L (137-145) mmol/L Chloride 108 H (98-107) mmol/L Carbon Dioxide 19 L (22-30) mmol/L BUN 83 H (7-17) mg/dL Creatinine 2.13 H (0.52-1.04) mg/dL Glucose 117 H (74-99) mg/dL POC Glucose (mg/dL) 172 H (70-110) mg/dL Calcium 5.4 L* (8.4-10.2) mg/dL Ionized Calcium [place] 3.4 L* (4.5-5.3) mg/dL AST 96 H (14-36) U/L Alkaline Phosphatase 175 H (38-126) U/L Ammonia (<30) umol/L C-Reactive Protein 54.9 H (<1.0) mg/dL Total Protein 4.2 L (6.3-8.2) g/dL Albumin 1.6 L (3.5-5.0) g/dL 08/23/22 08/23/22 Range/Units 11:40 11:40 WBC (3.8-10.6) k/uL RBC (3.80-5.40) m/uL Hgb (11.4-16.0) gm/dL Hct (34.0-46.0) % MCHC (31.0-37.0) g/dL RDW (11.5-15.5) % Neutrophils # (1.3-7.7) k/uL ABG pH (7.35-7.45) ABG HCO3 (21-25) mmol/L Sodium (137-145) mmol/L Chloride (98-107) mmol/L Carbon Dioxide (22-30) mmol/L BUN (7-17) mg/dL Creatinine (0.52-1.04) mg/dL Glucose (74-99) mg/dL POC Glucose (mg/dL) 165 H (70-110) mg/dL Calcium (8.4-10.2) mg/dL Ionized Calcium [place] (4.5-5.3) mg/dL AST (14-36) U/L Alkaline Phosphatase (38-126) U/L Ammonia 210 H (<30) umol/L C-Reactive Protein (<1.0) mg/dL Total Protein (6.3-8.2) g/dL Albumin (3.5-5.0) g/dL Microbiology - Last 24 Hours (Table) 08/19/22 18:00 Stool Culture - Final Stool 08/19/22 21:07 Gram Stain - Final Sputum Sputum Culture - Final Methicillin resist S. aureus Ange albicans
[2022-08-23] MEDS: DEXTROSE 5% IN WATER 1,000 ML with SODIUM BICARB (1 MEQ/ML) 150 ML IV SCH (16:22)
[2022-08-23 16:33] LABS: Glucose,Whole Blood 159 mg/dL (70-110)
--- NOTE | 2022-08-23 16:42 | P.PN ---
Subjective Progress Note Date: 08/23/22 H&P Date: 08/09/22 Chief Complaint: Shortness of breath,Altered mental statConstipation, syncope, hyperglycemia This is a pleasant 87-year-old female with past medical history of CAD, MT, stent placement, aortic stenosis ,chronic hypoxic respiratory failure,on 2 L nasal cannula ,Covid 06/22,COPD, former nicotine dependence, obstructive sleep apnea ,CVA/TIA, diabetes mellitus, hypertension, hyperlipidemia, hypothyroidism, recurrent UTIs,CKD III, urinary retention, anemia, bilateral peripheral neuropathy, gait dysfunction,utilizing walker, falls, morbid obesity-BMI 39.9 and multiple other medical issues brought in via ambulance, on BiPAP to the ER for change in level of consciousness, syncope, nausea, vomiting, hyperglycemia, constipation-on [place], shortness of breath, recently discharged from [facility] subacute rehab on 08/06/2022. Information being obtained from chart and daughter at bedside. Daughter reports they are unsure of her last bowel movement, possibly , 08/03. [facility] documented large bowel movement on 08/04 and 08/05. Reports yesterday blood sugars were running high in the 400s, patient developed nausea and vomiting, change in sensorium, passed out while on the toilet. Reports patient "coughs all the time, but has COPD", no knowledge of fevers, denies chills. Denies chest pain, palpitations, positive shortness of breath. Developed hypotension in the ER in addition to emesis, received fluid bolus .Chest x-ray reported right basilar infiltrate with persistent small right effusion, no overt failure. EKG reported sinus rhythm, troponin negative 1. KUB reported marked gastric distention, additional small bowel loops dilated, possibly retained debris within the rectum and sigmoid colon. 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 NG tube placed in the ER with 1200 MLS bilious output reported overnight. D-dimer elevated 4.73, CT angio chest reported no evidence of pulmonary embolism,more consolidation changes in the right lung base, rule out aspiration. ProBNP 426. UA reported many WBC clumps, 165 WBCs, large leukocytes, negative nitrates, culture pending. Afebrile, on admission temperature 96.7, currently 98.8. WBC 14.3. lactic acid 3.5, repeat level pending. Hemoglobin 10.2, platelets 4:15, a I's within normal limits, BUN 40, creatinine 1.5. BiPAP weaned off, currently requiring 6 L nasal cannula O2 to maintain O2 sats in the low 90s. 08/10/22 Continued to decline throughout the night requiring ICU admission, maintained on vasopressin, Levophed and bicarb drips. Received fluid boluses throughout the night. Lactic acid decreased to 2.1. Low urine output on Lasix IV push. BUN 81, creatinine 2.68. Hyperkalemic, received calcium, insulin, D50, sodium bicarbonate. Chest x-ray reporting stable bilateral lower lobe infiltrate and small effusion. Afebrile, T-max 99.7. Continues on Levaquin, WBC normalized today. Cefepime added to antibiotic regimen today. Preliminary Urine cultures reporting group D enterococcus 50-100,000 colonies and gram-negative bacilli 10 and 49,000 colonies. 07/03 Blood cultures reporting GNB. Hemoglobin 8.2, platelets 311. 08/11/2022 Vent dependent, FiO2 60%/+5 of PEEP. Chest x-ray reports stable, no change in bibasilar opacities, pleural effusion unchanged. Continues on the Levophed and vasopressin drips. Febrile to the night, T-max 102.4, WBC increased to 12.2. Lactic acid trended up during the night, received fluid boluses, currently at 3.2. Developed atrial fibrillation with RVR, bolused with amiodarone and currently on amiodarone drip. Urine culture reporting enterococcus faecalis and Pseudomonas aeruginosa.Films reviewed by general surgery, reporting sigmoid volvulus. Recommending conservative management. BUN 79, creatinine 2.74. Hyperglycemic. Hemoglobin 8.6, platelets 349. Anticoagulation remains on hold. 08/21/2022 remains vent dependent, FiO2 50%/+5 of PEEP. Maintained on high doses of levophed, vasopressin. Amiodarone and bicarb drips continue. Receiving IV albumin to be followed by Lasix. Worsening renal function. Staff reports no urine output 24 hours. Bicarb 16, BUN 76, creatinine 1.73. Repeat CT of abdomen and pelvis completed yesterday, reporting moderate volume pneumo peritoneum, suspected perforation of distal colonic bowel, extensive distal bowel pneumatosis. Surgery discussed findings with family, high risk for surgical intervention. Family decided against surgical intervention,but to continue with nonsurgical care. T-max 100.6. Maintained on Zerbaxa, Eraxis, daptomycin .Seizure-like activity reported yesterday afternoon, placed on Keppra, reoccurred in the content creation manager hours 2. Brain CT reported no acute intracranial process .EEG completed, results pending. 08/22/2022 vent dependent, 40% FiO2, +5 of PEEP. Staff reports patient desats quickly with turning. Chest x-ray reporting bibasilar atelectasis, consolidation, minimally increased, possible tiny right basilar pleural effusion. Continues on high doses of pressors, digits dusky. Maintained on bicarb drip. Telemetry atrial fibrillation, fast ventricular rate on amiodarone drip. Remains on antibiotics as per infectious disease.BUN 83, creatinine 1.79. T-max 102, WBC decreased, 16.5 08/23/2022 FiO2 50%/+5 of PEEP. Chest x-ray reported no significant change .Continues on pressor support. Maintained on amiodarone drip, heart rates currently in the 1 teens to 120s. Continues on daptomycin, Zerbexa and Eraxis.T-max 100.9, WBC 15.3. BUN 83, creatinine 2.13. WBC decreased to 15.3. Receiving IV albumin, Albumin currently 1.6. Ionized calcium 3.4, receiving supplementation. Objective - Vital Signs Vital signs: Vital Signs Temp 99.8 F H 08/23/22 15:00 Pulse 113 H 08/23/22 16:15 Resp 28 H 08/23/22 15:00 BP 99/52 08/19/22 16:39 Pulse Ox 96 08/23/22 15:00 FiO2 50 08/23/22 16:13 Intake & Output 08/22/22 08/23/22 08/23/22 18:59 06:59 18:59 Intake Total 1324 2207.068 1064 Output Total 870 410 605 Balance 454 1797.068 459 Weight 138.3 kg 138.3 kg Intake: IV 824 1303 814 0.9% @ KVO 260 220 40 ACETAMINOPHEN IV (For NPO 100 ) 1,000 mg In Empty Bag 1 bag @ 400 mls/hr IVPB Q6HR PRN Rx#:[id number] Ceftolozane/Tazobactam 0. 100 100 75 gm In Sodium Chloride 0.9% 100 ml @ 100 mls/hr IV Q8HR [facility] Rx#:[id number] DAPTOmycin 500 mg In 50 Sodium Chloride 0.9% 50 ml @ 100 mls/hr IVPB Q48H [facility] Rx#:[id number] Dextrose 5% in Water 1, 225 750 450 000 ml @ 75 mls/hr IV . [id number] [place] with Sodium Bicarb (1 Meq/ml) 150 ml Rx#:[id number] Lacosamide IV 100 mg In 200 50 Sodium Chloride 0.9% 50 ml @ 100 mls/hr IVPB BID [facility] Rx#:[id number] Pressure Bag 39 33 24 levETIRAcetam IV 750 mg 100 100 100 In Sodium Chloride 0.9% 100 ml @ 400 mls/hr IVPB Q12HR [facility] Rx#:[id number] Intake, IV Titration 500 904.068 250 Amount Albumin Human 25% 50 ml 50 In Empty Bag 1 bag @ 50 mls/hr IVPB ONCE ONE Rx#: [id number] Amiodarone 450 mg In 250 500 Dextrose 5% in Water 250 ml @ 1 MG/MIN 33.333 mls/ hr IV .Q7H30M [facility] Rx#: [id number] Calcium Gluconate in NaCl 200 1 gm In Saline 1 100ml. bag @ 100 mls/hr IVPB ONCE ONE Rx#:[id number] Norepinephrine 32 mg In 250 404.068 Sodium Chloride 0.9% 218 ml @ 0.5 MCG/KG/MIN 25. 547 mls/hr IV .Q9H48M [facility] Rx#:[id number] Output: Urine 270 410 205 Stool 600 400 Other: Voiding Method Indwelling Catheter Indwelling Catheter Indwelling Catheter ABP, PAP, CO, CI - Last Documented Arterial Blood Pressure 114/48 - Exam GENERAL EXAM: on mechanical ventilation, off of sedation, HEENT: Normocephalic. Sluggish pupils,NG present NECK: soft, unable to assess for JVD. LUNGS: Equal air entry with bilateral bases diminished, fine crackles in bilateral bases. CV: S1 and S2 normal with no audible murmur, irregular rhythm. Systolic murmur. ABDOMEN:Distended SKIN: No rashes. CENTRAL NERVOUS SYSTEM: Unable to assess, comotose on mechanical ventilation EXTREMITIES: Positive peripheral edema, dusky digits. - Labs CBC & Chem 7: 08/23/22 04:50 08/23/22 04:50 Labs: Abnormal Lab Results - Last 24 Hours (Table) 08/22/22 08/23/22 08/23/22 Range/Units 17:11 04:48 04:50 WBC 15.3 H (3.8-10.6) k/uL RBC 2.95 L (3.80-5.40) m/uL Hgb 7.5 L (11.4-16.0) gm/dL Hct 25.2 L (34.0-46.0) % MCHC 29.7 L (31.0-37.0) g/dL RDW 17.7 H (11.5-15.5) % Neutrophils # 13.0 H (1.3-7.7) k/uL ABG pH 7.27 L 7.31 L (7.35-7.45) ABG HCO3 20 L 20 L (21-25) mmol/L Sodium (137-145) mmol/L Chloride (98-107) mmol/L Carbon Dioxide (22-30) mmol/L BUN (7-17) mg/dL Creatinine (0.52-1.04) mg/dL Glucose (74-99) mg/dL POC Glucose (mg/dL) (70-110) mg/dL Calcium (8.4-10.2) mg/dL Ionized Calcium [place] (4.5-5.3) mg/dL AST (14-36) U/L Alkaline Phosphatase (38-126) U/L Ammonia (<30) umol/L C-Reactive Protein (<1.0) mg/dL Total Protein (6.3-8.2) g/dL Albumin (3.5-5.0) g/dL 08/23/22 08/23/22 08/23/22 Range/Units 04:50 08:23 08:25 WBC (3.8-10.6) k/uL RBC (3.80-5.40) m/uL Hgb (11.4-16.0) gm/dL Hct (34.0-46.0) % MCHC (31.0-37.0) g/dL RDW (11.5-15.5) % Neutrophils # (1.3-7.7) k/uL ABG pH (7.35-7.45) ABG HCO3 (21-25) mmol/L Sodium 136 L (137-145) mmol/L Chloride 108 H (98-107) mmol/L Carbon Dioxide 19 L (22-30) mmol/L BUN 83 H (7-17) mg/dL Creatinine 2.13 H (0.52-1.04) mg/dL Glucose 117 H (74-99) mg/dL POC Glucose (mg/dL) 172 H (70-110) mg/dL Calcium 5.4 L* (8.4-10.2) mg/dL Ionized Calcium [place] 3.4 L* (4.5-5.3) mg/dL AST 96 H (14-36) U/L Alkaline Phosphatase 175 H (38-126) U/L Ammonia (<30) umol/L C-Reactive Protein 54.9 H (<1.0) mg/dL Total Protein 4.2 L (6.3-8.2) g/dL Albumin 1.6 L (3.5-5.0) g/dL 08/23/22 08/23/22 Range/Units 11:40 11:40 WBC (3.8-10.6) k/uL RBC (3.80-5.40) m/uL Hgb (11.4-16.0) gm/dL Hct (34.0-46.0) % MCHC (31.0-37.0) g/dL RDW (11.5-15.5) % Neutrophils # (1.3-7.7) k/uL ABG pH (7.35-7.45) ABG HCO3 (21-25) mmol/L Sodium (137-145) mmol/L Chloride (98-107) mmol/L Carbon Dioxide (22-30) mmol/L BUN (7-17) mg/dL Creatinine (0.52-1.04) mg/dL Glucose (74-99) mg/dL POC Glucose (mg/dL) 165 H (70-110) mg/dL Calcium (8.4-10.2) mg/dL Ionized Calcium [place] (4.5-5.3) mg/dL AST (14-36) U/L Alkaline Phosphatase (38-126) U/L Ammonia 210 H (<30) umol/L C-Reactive Protein (<1.0) mg/dL Total Protein (6.3-8.2) g/dL Albumin (3.5-5.0) g/dL Microbiology - Last 24 Hours (Table) 08/19/22 18:00 Stool Culture - Final Stool Assessment and Plan Assessment: Sepsis, septic shock secondary to acute enterococcus faecalis and Pseudomonas aeruginosa UTI, with acute VRE bacteremia ,abdominal source. Hypotension secondary to the above, pressor dependent Fevers Acute on chronic hypoxic respiratory failure, ventilator dependent, secondary to all the above Chronic changes of the right lower lobe and small right pleural effusion as per pulmonary Acute on CKD III, secondary to ATN related to the above Atrial fibrillation with RVR, on amiodarone drip In a patient with history of chronic atrial fibrillation Metabolic acidosis, on bicarb drip Altered mental status, Acute metabolic ,septic and hepatic encephalopathy secondary to the above. Abdominal pain, constipation, last bowel movement reported /.Films reviewed by general surgery, reporting sigmoid volvulus. Continued clinical worsening;Probable perforated viscus with pneumoperitoneum reported per CT on 08/20/2022. Syncope, possibly vasovagal, multifactorial, secondary to all the above Lactic acidosis Leukocytosis Diabetes mellitus, family reports hyperglycemic at home, controlled IP, A1c 6. Recent COVID-19 infection, 06/22 COPD Valvular heart disease, moderate aortic stenosis, preserved LV function Chronic anemia Generalized weakness, gait dysfunction, multiple falls recently reported, recently discharged from [facility] subacute rehab. 08/06/22. History of CVA, TIA History of Hypertension Hyperlipidemia Hypothyroidism Morbid obesity, BMI 39.9 No code, no CPR, no reintubation Plan: Continue on current medication regime ,monitoring and symptomatic sara tment. Multiple consults following ;ICU management as per hoist cylinder loader. Antibiotics as per infectious disease. Prognosis poor, /family not ready for comfort care at this time. Questions and concerns addressed. Support given. The impression and plan of care has been dictated as directed. : I performed a history and examination of this patient, discussed the same with the dictator. I agree with the dictator's note ,documented as a scribe. Any additional findings or plans will be noted.
--- NOTE | 2022-08-23 17:52 | CDI ---
Documentation Clarification Form Date: 08/23/2022 5:41:24 PM From: Puja Arzate RN CCDS Phone: [phone] Admit Date: 08/08/2022 7:25:00 PM Patient Name: Concepcion Newberry Visit Number: [id number] Discharge Date: ATTENTION: The Clinical Documentation Specialists (CDI) and [facility] Coding Staff appreciate your assistance in clarifying documentation. Please respond to the clarification below the line at the bottom and electronically sign. The CDI & [facility] Coding staff will review the response and follow-up if needed. Please note: Queries are made part of the Legal Health Record. If you have any questions, please contact the author of this message via ITS. Dr. Phan Ambriz Coccyx pressure ulcer is documented by Nursing 08/12, Nursing Pressure Injury Assessment. Based on this information and the findings below, is there an additional diagnosis that is clinically appropriate for this patient? History/Risk Factors: 87-year-old female presented via EMS with Change in level of consciousness, syncope, shortness of breath, nausea and vomiting, constipation, on BIPAP and recently discharged from rehab 08/06/22. Medical History: DM2, COPD, PRACHI, CAD, Chronic respiratory failure and CKD 3. H&P, 08/09. Clinical Indicators: Location: Coccyx Wound description: Type 2 Partial flap loss Treatment: Foam with border, Turn Q2H, Absorbant underpad checking hourly, prevalon boot, specialty bed, pillows elevating arms and heels. Is there an additional diagnosis that is clinically appropriate for this patient? [ x ] Coccyx Pressure Ulcer Stage 2 [ ] Other condition, please specify [ ] Unable to determine Clinical Definitions: Stage 1 Pressure Ulcer: intact skin, non-blanching redness of local area Stage 2 Pressure Ulcer: Partial thickness, loss of dermis, pink wound bed Stage 3 Pressure Ulcer: Full thickness tissue loss Stage 4 Pressure Ulcer: Full thickness tissue loss with exposed bone, tendon, or muscle. Unstageable pressure ulcer: Full thickness tissue loss in which the base of the ulcer is covered by slough (yellow, tatum, [place], green or brown) and/or eschar (tatum, brown or black) in the wound bed. (Template Last Revised: August 2020) CRISTY
--- NOTE | 2022-08-23 19:52 | EEG ---
ELECTROENCEPHALOGRAM REPORT ELECTROENCEPHALOGRAM (EEG) REPORT: TECHNIQUE: This is a report from a prolonged 2.5-hour inpatient digital EEG performed using the 10/20 international electrode placement system. HISTORY: Pneumonia, sepsis, patient intubated. Possible seizure-like activity with head jerking and left arm jerking. OTHER MEDICAL HISTORY: Includes heart failure, COPD, diabetes, coronary artery disease, hypertension, hyperlipidemia. CURRENT MEDICATIONS: Vimpat and Keppra. FINDINGS: Recording start time: 08/23/2022 at 07:37 a.m. Recording end time: 08/23/2022 at 10:11 a.m. Please note that quality of this study was significantly limited by the presence of electrode as well as 60 cycle artifact. The recording was essentially uninterpretable. Occasionally, some delta range slowing was seen. IMPRESSION: Significantly limited and essentially uninterpretable study. These findings were called to the consulting neurologist at 4 p.m. on 08/23/2022. MMANGÉLICAL / ANITAN: [id number] /
[2022-08-23 20:37] LABS: Glucose,Whole Blood 21 mg/dL (70-110)
[2022-08-23 20:44] LABS: Glucose,Whole Blood 35 mg/dL (70-110)
[2022-08-23 20:49] LABS: Glucose,Whole Blood 113 mg/dL (70-110)
[2022-08-23 20:51] LABS: Glucose,Whole Blood 103 mg/dL (70-110)
[2022-08-23] MEDS: APIXABAN 2.5 MG TABLET PO SCH (21:11)
[2022-08-23] MEDS: levETIRAcetam IV 1,000 MG in SALINE 1 100ML.BAG IVPB SCH (21:11)
--- NOTE | 2022-08-23 21:45 | PN ---
PROGRESS NOTE SUBJECTIVE: Concepcion is admitted to ICU with bowel obstruction and subsequently developed perforation and we are involved in her care because of atrial fibrillation with poorly controlled ventricular rate. She remains intubated on vent and remains in atrial fibrillation with poorly controlled ventricular rate. She is on maximal doses of pressors for hypotension and she is on IV amiodarone for rate control. OBJECTIVE: VITAL SIGNS: On exam, heart rate is 110 beats per minute. Blood pressure is 110/49, respiratory rate 18. HEART: Reveals first and second heart sounds, irregular rhythm. LUNGS: She has diminished air entry bilaterally. ABDOMEN: Appears distended. EXTREMITIES: Examination of the extremities reveals bilateral pitting edema. LABORATORY DATA: Labs show a hemoglobin of 7.5, platelet count is 295. Potassium is 4.5, BUN is 83, and creatinine 2.1. ASSESSMENT: 1. Bowel perforation. 2. Persistent atrial fibrillation with poorly controlled ventricular rate. PLAN: Continue current medications. Prognosis guarded. MMODL / ANITAN: [id number] /
[2022-08-23] MEDS: LACOSAMIDE IV 150 MG in SODIUM CHLORIDE 0.9% 50 ML IVPB SCH (21:48)
[2022-08-23 23:22] LABS: Glucose,Whole Blood 96 mg/dL (70-110)
--- NOTE | 2022-08-24 00:13 | EEG ---
ELECTROENCEPHALOGRAM REPORT ELECTROENCEPHALOGRAM (EEG) REPORT: TECHNIQUE: This is a report from a prolonged 2.5-hour inpatient digital EEG performed using the 10/20 international electrode placement system. HISTORY: Pneumonia, sepsis, respiratory failure, potential seizure-like activity. OTHER MEDICAL HISTORY: Includes coronary artery disease, heart failure, COPD, diabetes, hypertension, hyperlipidemia. CURRENT MEDICATIONS: 1. Vimpat. 2. Keppra. FINDINGS: Recording start time: 08/23/2022 at 07:37 a.m. Recording end time: 08/23/2022 at 10:11 a.m. EVENTS: During this 2.5-hour EEG, no clinical seizures were recorded. FINDINGS: Please note the findings as will be described below were consistent with the ictal interictal continuum consisting of LPDs plus at times in a periodic fashion. BACKGROUND: A sustained posterior dominant rhythm was not seen. Occasionally frequencies of the posterior quadrants consisted of poorly modulated 2-3 Hz waveforms. ACTIVATION: 1. Hyperventilation: Not performed. 2. Photic stimulation: No driving seen. 3. Sleep: Drowsy. ABNORMALITIES: 1. The most frequent abnormality of this recording was runs of semiperiodic to periodic 1 hertz moderate voltage sharp and slow waves seen over the posterior quadrants, maximal amplitude was midline occipital. Field of spread involved 01, 02, P3 and P4. The morphology of these waveforms did vary, some had an after going slow wave, some did not. Hence, these are considered LPDs plus. Some of these also had a triphasic type morphology. 2. Diffuse synchronous and asynchronous 1-3 hertz slow wave activity was seen. IMPRESSION: Abnormal 2.5-hour EEG. This EEG was notable for LPDs plus type finding. The periodic discharges, sharp and slow waves are epileptiform in nature. As mentioned, at times these occurred in a periodic fashion. This can be considered consistent with ictal interictal continuum. The diffuse delta range slowing mentioned above is not epileptiform in nature. LPD's plus can be seen postictally that is post seizure. These findings suggest the presence of an active epileptiform focus involving the midline occipital parietal region. Individual epileptiform foci involving the bilateral occipital regions is not necessarily excluded. This is because the discharges exhibited a shifting maximum between the left occipital and right occipital regions. These findings were discussed with the consulting neurologist on 08/23/2022 at 1815. Please note that this is an updated report. MMODL / IJN: [id number] /
[2022-08-24] MEDS: AMIODARONE 450 MG in DEXTROSE 5% IN WATER 250 ML IV SCH ×6 (03:43→18:44)
[2022-08-24 03:53] LABS: Glucose,Whole Blood 95 mg/dL (70-110)
[2022-08-24] MEDS: INSULIN ASPART (NovoLOG) 100 UNIT/ML VIAL SQ SCH ×6 (03:56→20:50)
[2022-08-24] MEDS: DEXTROSE 5% IN WATER 1,000 ML with SODIUM BICARB (1 MEQ/ML) 150 ML IV SCH ×2 (04:08→20:43)
[2022-08-24] MEDS: VASOPRESSIN 60 UNIT in SODIUM CHLORIDE 0.9% 150 ML IV SCH (04:09)
[2022-08-24 05:17] LABS: Anisocytosis Slight; HCT 23.2 % (34.0-46.0); HGB 7.1 gm/dL (11.4-16.0); Hypochromasia Moderate; MCH 26.2 pg (25.0-35.0); MCHC 30.8 g/dL (31.0-37.0); MCV 85.1 fL (80.0-100.0); Mean Platelet Volume 9.4; Platelet Count 313 k/uL (150-450); Poikilocytosis Slight; RBC 2.72 m/uL (3.80-5.40); RDW 17.6 % (11.5-15.5)
[2022-08-24 05:20] LABS: Ionized Calcium 3.3 mg/dL (4.5-5.3)
[2022-08-24 05:32] LABS: Albumin 1.8 g/dL (3.5-5.0); Potassium 3.6 mmol/L (3.5-5.1); Total Bilirubin 0.5 mg/dL (0.2-1.3); Total Protein 4.3 g/dL (6.3-8.2)
[2022-08-24 05:40] LABS: ABG Base Excess -5.4 mmol/L; ABG HCO3 21 mmol/L (21-25); ABG Oxygen Saturation 95.8 % (94-97); ABG PCO2 39 mmHg (35-45); ABG PH 7.33 (7.35-7.45); ABG PO2 84 mmHg (83-108); ABG TCO2 22 mmol/L (19-24); Allen Test Performed? Yes
[2022-08-24 05:43] LABS: Band Neutrophils % 1 %; Eosinophils # (M) 0.17 k/uL (0-0.7); Lymphocytes # (M) 1.89 k/uL (1.0-4.8); Monocytes # (M) 0.69 k/uL (0-1.0); Neutrophils % (M) 85 %; Nucleated Red Blood Cells 2 /100 WBC (0-0); Total Cells Counted 200; WBC 17.2 k/uL (3.8-10.6)
[2022-08-24 05:44] LABS: Polychromasia Present
[2022-08-24 05:47] LABS: Calcium 5.1 mg/dL (8.4-10.2)
[2022-08-24] MEDS: NOREPINEPHRINE 32 MG in SODIUM CHLORIDE 0.9% 218 ML IV SCH ×2 (06:12→23:30)
[2022-08-24] MEDS ORDERED: SALINE IVPB ONE (06:17)
[2022-08-24] MEDS ORDERED: NACL IVPB ONE (06:17)
[2022-08-24] MEDS ORDERED: CALCIUM GLUCONATE IVPB ONE (06:17)
[2022-08-24 06:23] LABS: Glucose,Whole Blood 55 mg/dL (70-110)
[2022-08-24] MEDS ORDERED: POTASSIUM BICARBONATE/CIT AC 20 MEQ TABLET.EFF PO ONE (06:25)
[2022-08-24 06:53] LABS: Glucose,Whole Blood 99 mg/dL (70-110)
[2022-08-24] MEDS: ALBUTEROL NEBULIZED 2.5 MG/3 ML INHALATION SCH ×4 (07:28→20:44)
[2022-08-24] MEDS: BUDESONIDE 1 MG/2 ML NEBU INHALATION SCH ×2 (07:28→20:44)
[2022-08-24] MEDS: IPRATROPIUM 0.5 MG/2.5 ML NEBU INHALATION SCH ×4 (07:28→20:44)
[2022-08-24] MEDS: FORMOTEROL FUMARATE 20 MCG/2 ML NEBU INHALATION SCH ×2 (07:28→20:44)
--- NOTE | 2022-08-24 07:32 | P.PN ---
Subjective Progress Note Date: 08/23/22 08/23/2022: Patient was seen for a follow-up. Patient is intubated, not on any sedation. She is on full pressors with Levophed and vasopressin. Also on 3 antibiotics, anti-seizure medications including Keppra and Vimpat. Patient had sporadic seizure-like activity with facial twitching. No definite arm twitching noted. Episode lasted for about 30 minutes. At present there is no twitching noticeable. Patient's and grandchildren were present today. 08/22/2022: Patient was seen for a follow-up. Patient's daughter was also present today. Patient recently had temperature of 100.3. About an hour prior to spiking temperature, patient had some facial twitching, with jaw opening and closing, that lasted for half an hour. No upper extremity movement was noted at that time. Patient continues to be on Keppra 750 mg twice a day. Patient continues to be on high-dose pressors. Patient at present is no code, but full medical treatment. 08/21/2022: Patient initially seen by Dr. Edouard Peres. Please refer to his note for details. Patient is an 87-year-old female with altered mental status. Patient has septic encephalopathy. Patient had a seizure-like activity yesterday at 1:15 PM with head jerking and left arm jerking. Patient was given Ativan 4 mg, and the seizure-like stopped. Patient was given a loading dose of Keppra 1000 mg IV and then maintained on 500 mg twice a day. Patient had again seizure-like activity at 3 AM lasted for 45 minutes and then 5 AM and patient was given another loading dose of 500 mg Keppra. Nurse called me today at around 7:30 AM. It lasted for 20-30 minutes. Patient was again given Valium 4 mg in the seizure- like activity resolved. Patient was started on Vimpat 100 mg twice a day IV PB. EEG was performed today, which was abnormal sleep EEG due to background slowing of moderate degree. Some sharply contoured waves were seen in the left parietal region. No clear-cut epileptiform activity was seen. Objective - Vital Signs Vital signs: Vital Signs Temp 97.9 F 08/24/22 04:00 Pulse 129 H 08/24/22 07:00 Resp 29 H 08/24/22 07:00 BP 99/52 08/19/22 16:39 Pulse Ox 93 L 08/24/22 07:00 FiO2 50 08/24/22 07:08 Intake & Output 08/23/22 08/24/22 08/24/22 18:59 06:59 18:59 Intake Total 1831 2184.590 98 Output Total 1075 905 445 Balance 756 1279.590 -347 Weight 138.3 kg 137.1 kg Intake: IV 1178 1416 98 0.9% @ KVO 70 230 20 Ceftolozane/Tazobactam 0. 200 100 75 gm In Sodium Chloride 0.9% 100 ml @ 100 mls/hr IV Q8HR [facility] Rx#:[id number] DAPTOmycin 500 mg In 50 Sodium Chloride 0.9% 50 ml @ 100 mls/hr IVPB Q48H [facility] Rx#:[id number] Dextrose 5% in Water 1, 675 900 75 000 ml @ 75 mls/hr IV . [id number] [facility] with Sodium Bicarb (1 Meq/ml) 150 ml Rx#:[id number] Lacosamide IV 100 mg In 50 50 Sodium Chloride 0.9% 50 ml @ 100 mls/hr IVPB BID [facility] Rx#:[id number] Pressure Bag 33 36 3 levETIRAcetam IV 750 mg 100 100 In Sodium Chloride 0.9% 100 ml @ 400 mls/hr IVPB Q12HR [facility] Rx#:[id number] Intake, IV Titration 653 648.590 Amount Albumin Human 25% 50 ml 50 In Empty Bag 1 bag @ 50 mls/hr IVPB ONCE ONE Rx#: [id number] Albumin Human 25% 50 ml 50 In Empty Bag 1 bag @ 50 mls/hr IVPB ONCE ONE Rx#: [id number] Amiodarone 450 mg In 378.886 Dextrose 5% in Water 250 ml @ 1 MG/MIN 33.333 mls/ hr IV .Q7H30M [facility] Rx#: [id number] Calcium Gluconate in NaCl 200 1 gm In Saline 1 100ml. bag @ 100 mls/hr IVPB ONCE ONE Rx#:[id number] Norepinephrine 32 mg In 250 219.704 Sodium Chloride 0.9% 218 ml @ 0.5 MCG/KG/MIN 25. 547 mls/hr IV .Q9H48M [facility] Rx#:[id number] Vasopressin 60 unit In 153 Sodium Chloride 0.9% 150 ml @ 0.04 UNITS/MIN 6.12 mls/hr IV .Q24H [facility] Rx#: [id number] Other 120 Output: Gastric Drainage 400 Urine 275 505 45 Stool 800 400 Other: Voiding Method Indwelling Catheter Indwelling Catheter ABP, PAP, CO, CI - Last Documented Arterial Blood Pressure 111/44 - Exam Patient is an elderly female, who is comatose. Patient is not on any sedation. Sedation discontinued since 08/16/2022. Patient does not respond to painful stimuli or calling out loudly. No seizure-like activity noticed at this time. Her pupils are equal, right pupil reacting more briskly than the left. Oculocephalics are absent, corneals absent. Reflexes are almost absent. Patient has significant peripheral edema. Patient is slightly cyanotic particularly in the fingertips. - Labs CBC & Chem 7: 08/24/22 04:52 08/24/22 04:52 Labs: Abnormal Lab Results - Last 24 Hours (Table) 08/23/22 08/23/22 08/23/22 Range/Units 04:50 08:23 08:25 WBC (3.8-10.6) k/uL RBC (3.80-5.40) m/uL Hgb (11.4-16.0) gm/dL Hct (34.0-46.0) % MCHC (31.0-37.0) g/dL RDW (11.5-15.5) % Neutrophils # (Manual) (1.3-7.7) k/uL Nucleated RBCs (0-0) /100 WBC ABG pH (7.35-7.45) Sodium (137-145) mmol/L Carbon Dioxide (22-30) mmol/L BUN (7-17) mg/dL Creatinine (0.52-1.04) mg/dL POC Glucose (mg/dL) 172 H (70-110) mg/dL Calcium (8.4-10.2) mg/dL Ionized Calcium [place] 3.4 L* (4.5-5.3) mg/dL AST (14-36) U/L Alkaline Phosphatase (38-126) U/L Ammonia (<30) umol/L C-Reactive Protein 54.9 H (<1.0) mg/dL Total Protein (6.3-8.2) g/dL Albumin (3.5-5.0) g/dL 08/23/22 08/23/22 08/23/22 Range/Units 11:40 11:40 16:32 WBC (3.8-10.6) k/uL RBC (3.80-5.40) m/uL Hgb (11.4-16.0) gm/dL Hct (34.0-46.0) % MCHC (31.0-37.0) g/dL RDW (11.5-15.5) % Neutrophils # (Manual) (1.3-7.7) k/uL Nucleated RBCs (0-0) /100 WBC ABG pH (7.35-7.45) Sodium (137-145) mmol/L Carbon Dioxide (22-30) mmol/L BUN (7-17) mg/dL Creatinine (0.52-1.04) mg/dL POC Glucose (mg/dL) 165 H 159 H (70-110) mg/dL Calcium (8.4-10.2) mg/dL Ionized Calcium [place] (4.5-5.3) mg/dL AST (14-36) U/L Alkaline Phosphatase (38-126) U/L Ammonia 210 H (<30) umol/L C-Reactive Protein (<1.0) mg/dL Total Protein (6.3-8.2) g/dL Albumin (3.5-5.0) g/dL 08/23/22 08/23/22 08/23/22 Range/Units 20:36 20:43 20:48 WBC (3.8-10.6) k/uL RBC (3.80-5.40) m/uL Hgb (11.4-16.0) gm/dL Hct (34.0-46.0) % MCHC (31.0-37.0) g/dL RDW (11.5-15.5) % Neutrophils # (Manual) (1.3-7.7) k/uL Nucleated RBCs (0-0) /100 WBC ABG pH (7.35-7.45) Sodium (137-145) mmol/L Carbon Dioxide (22-30) mmol/L BUN (7-17) mg/dL Creatinine (0.52-1.04) mg/dL POC Glucose (mg/dL) 21 L 35 L 113 H (70-110) mg/dL Calcium (8.4-10.2) mg/dL Ionized Calcium [place] (4.5-5.3) mg/dL AST (14-36) U/L Alkaline Phosphatase (38-126) U/L Ammonia (<30) umol/L C-Reactive Protein (<1.0) mg/dL Total Protein (6.3-8.2) g/dL Albumin (3.5-5.0) g/dL 08/24/22 08/24/22 08/24/22 Range/Units 04:52 04:52 04:52 WBC 17.2 H (3.8-10.6) k/uL RBC 2.72 L (3.80-5.40) m/uL Hgb 7.1 L (11.4-16.0) gm/dL Hct 23.2 L (34.0-46.0) % MCHC 30.8 L (31.0-37.0) g/dL RDW 17.6 H (11.5-15.5) % Neutrophils # (Manual) 14.70 H (1.3-7.7) k/uL Nucleated RBCs 2 H (0-0) /100 WBC ABG pH (7.35-7.45) Sodium 135 L (137-145) mmol/L Carbon Dioxide 20 L (22-30) mmol/L BUN 83 H (7-17) mg/dL Creatinine 1.90 H (0.52-1.04) mg/dL POC Glucose (mg/dL) (70-110) mg/dL Calcium 5.1 L* (8.4-10.2) mg/dL Ionized Calcium [place] 3.3 L* (4.5-5.3) mg/dL AST 84 H (14-36) U/L Alkaline Phosphatase 166 H (38-126) U/L Ammonia 150 H (<30) umol/L C-Reactive Protein (<1.0) mg/dL Total Protein 4.3 L (6.3-8.2) g/dL Albumin 1.8 L (3.5-5.0) g/dL 08/24/22 08/24/22 Range/Units 05:38 06:20 WBC (3.8-10.6) k/uL RBC (3.80-5.40) m/uL Hgb (11.4-16.0) gm/dL Hct (34.0-46.0) % MCHC (31.0-37.0) g/dL RDW (11.5-15.5) % Neutrophils # (Manual) (1.3-7.7) k/uL Nucleated RBCs (0-0) /100 WBC ABG pH 7.33 L (7.35-7.45) Sodium (137-145) mmol/L Carbon Dioxide (22-30) mmol/L BUN (7-17) mg/dL Creatinine (0.52-1.04) mg/dL POC Glucose (mg/dL) 55 L (70-110) mg/dL Calcium (8.4-10.2) mg/dL Ionized Calcium [place] (4.5-5.3) mg/dL AST (14-36) U/L Alkaline Phosphatase (38-126) U/L Ammonia (<30) umol/L C-Reactive Protein (<1.0) mg/dL Total Protein (6.3-8.2) g/dL Albumin (3.5-5.0) g/dL Assessment and Plan Assessment: Altered mental status due to primarily septic encephalopathy. Also has some component of metabolic encephalopathy with worsening of the kidney function. Has been off sedation for 6 days. Abnormal EEG, with evidence of PLEDS plus Probable perforated viscus with pneumoperitoneum. Septicemia, with high temperature, leukocytosis and blood culture positive with enterococcus faecium. White cells improving. Hepatic encephalopathy with elevated ammonia 214, repeat today 210. Sepsis shock requiring pressor support and seems has urinary tract infection with urine culture positive for Enterococcus faecalis and Pseudomonas aeruginosa as well as systemic candidiasis Atrial fibrillation on eliquis (which has hx of afib) , currently on hold. Acute on chronic hypoxemic respiratory failure secondary selected diastolic congestive heart failure requiring intubation mechanical ventilation Acute on chronic kidney disease History of TIAs/stroke History of coronary artery disease with stent Hypertension Hyperlipidemia Diabetes mellitus Anemia Hypocalcemia Plan: * Patient underwent prolonged EEG today. According to preliminary report, there is 1 Hz sharp and slow waves PLEDS. No definitive status as per verbal report from Dr. Ardeshna. Official report pending. * Increase Vimpat to 150 mg twice a day, and Keppra 1000 mg twice a day. Repeat prolonged EEG in the morning. * Continue Ativan 1-2 mg every 4 hours when necessary seizure. * Repeat CT head. * Initial CT of the head revealed generalized cerebral atrophy without acute intracranial process. I personally reviewed CT head, agree with the findings. * Repeat ammonia level 210. Ammonia 214 yesterday (normal <30). Patient on lactulose. IM/critical care to address. Repeat ammonia level in a.m. * CT abdomen revealed possibility of perforated viscus. Surgery on board. Patient not a candidate for surgery because of hemodynamic instability. * Patient is on high dose pressors * ID team is on board * We'll defer the rest of medical management to primary and ICU team * The patient condition is very critical. Prognosis appears very guarded to poor at this time. * Plan discussed with the patient's and patient's nurse.
[2022-08-24] MEDS: ANIDULAFUNGIN 100 MG in SODIUM CHLORIDE 0.9% 100 ML IVPB SCH (08:02)
[2022-08-24] MEDS: CALCIUM GLUCONATE IN NACL 1 GM in SALINE 1 100ML.BAG IVPB SCH ×3 (08:02→11:58)
[2022-08-24] MEDS: CEFTOLOZANE/TAZOBACTAM 0.75 GM in SODIUM CHLORIDE 0.9% 100 ML IV SCH ×2 (08:08→17:12)
--- NOTE | 2022-08-24 08:13 | XR ---
EXAMINATION TYPE: XR chest 1V portable DATE OF EXAM: 08/24/2022 COMPARISON: NONE HISTORY: TECHNIQUE: Single frontal view of the chest is obtained. Findings: Bibasilar atelectasis and consolidation with possible small bibasilar pleural effusion. Pneumonia is in the differential. No pneumothorax. Heart appears prominent. Mediastinum is within normal limits. E ndotracheal tube, nasogastric tube, and left-sided central line are in stable position. IMPRESSION: No significant change.
[2022-08-24] MEDS: PANTOPRAZOLE 40 MG/10 ML VIAL IVP SCH (08:58)
[2022-08-24] MEDS: TAMSULOSIN 0.4 MG CAP.ER.24H PO SCH (08:59)
[2022-08-24] MEDS: CHLORHEXIDINE GLUCONATE 15 ML CUP MUCOUS MEM SCH ×2 (08:59→20:43)
[2022-08-24] MEDS: FUROSEMIDE 10 MG/ML 10 ML VIAL IV SCH (08:59)
[2022-08-24] MEDS: LACTULOSE 20 GM/30 ML CUP PO SCH ×4 (08:59→21:29)
[2022-08-24] MEDS: APIXABAN 2.5 MG TABLET PO SCH (08:59)
[2022-08-24] MEDS: polyethylene glycoL 3350 17 GM POWD.PACK PO SCH ×2 (09:17→20:43)
[2022-08-24 09:34] LABS: Glucose,Whole Blood 132 mg/dL (70-110)
[2022-08-24] MEDS: levETIRAcetam IV 1,000 MG in SALINE 1 100ML.BAG IVPB SCH ×2 (09:56→20:43)
[2022-08-24] MEDS: INSULIN DETEMIR (LEVEMIR) 100 UNIT/ML SYR SQ SCH (10:15)
[2022-08-24] MEDS: LACOSAMIDE IV 150 MG in SODIUM CHLORIDE 0.9% 50 ML IVPB SCH ×2 (10:22→21:55)
--- NOTE | 2022-08-24 10:31 | P.PN ---
Subjective Patient is seen in follow-up for acute kidney injury. Renal function better. Urine output 40-50 mL an hour. Intubated. Currently on Levophed and vasopressin. On bicarb drip. Recent blood culture positive for gram-positive cocci. CAT scan showed pneumoperitoneum. On amiodarone drip for A. fib. Has been receiving Ativan for seizure activity. Family present at bedside. Vital signs are stable. On vasopressor support. General: Resting in bed. HEENT: Intubated. LUNGS: Breath sounds decreased. HEART: Irregular rate and rhythm. ABDOMEN: Distention noted. EXTREMITITES: 2+ edema. Objective - Vital Signs Vital signs: Vital Signs Temp 97.7 F 08/24/22 08:00 Pulse 117 H 08/24/22 09:00 Resp 28 H 08/24/22 09:00 BP 99/52 08/19/22 16:39 Pulse Ox 94 L 08/24/22 09:00 FiO2 50 08/24/22 09:00 Intake & Output 08/23/22 08/24/22 08/24/22 18:59 06:59 18:59 Intake Total 1831 2184.590 574 Output Total 1075 905 540 Balance 756 1279.590 34 Weight 138.3 kg 137.1 kg Intake: IV 1178 1416 374 0.9% @ KVO 70 230 40 Ceftolozane/Tazobactam 0. 200 100 100 75 gm In Sodium Chloride 0.9% 100 ml @ 100 mls/hr IV Q8HR [facility] Rx#:[id number] DAPTOmycin 500 mg In 50 Sodium Chloride 0.9% 50 ml @ 100 mls/hr IVPB Q48H [facility] Rx#:[id number] Dextrose 5% in Water 1, 675 900 225 000 ml @ 75 mls/hr IV . [id number] [facility] with Sodium Bicarb (1 Meq/ml) 150 ml Rx#:[id number] Lacosamide IV 100 mg In 50 50 Sodium Chloride 0.9% 50 ml @ 100 mls/hr IVPB BID [facility] Rx#:[id number] Pressure Bag 33 36 9 levETIRAcetam IV 750 mg 100 100 In Sodium Chloride 0.9% 100 ml @ 400 mls/hr IVPB Q12HR [facility] Rx#:[id number] Intake, IV Titration 653 648.590 200 Amount Albumin Human 25% 50 ml 50 In Empty Bag 1 bag @ 50 mls/hr IVPB ONCE ONE Rx#: [id number] Albumin Human 25% 50 ml 50 In Empty Bag 1 bag @ 50 mls/hr IVPB ONCE ONE Rx#: [id number] Amiodarone 450 mg In 378.886 Dextrose 5% in Water 250 ml @ 1 MG/MIN 33.333 mls/ hr IV .Q7H30M [facility] Rx#: [id number] Anidulafungin 100 mg In 100 Sodium Chloride 0.9% 100 ml @ 84 mls/hr IVPB DAILY [facility] Rx#:[id number] Calcium Gluconate in NaCl 200 1 gm In Saline 1 100ml. bag @ 100 mls/hr IVPB ONCE ONE Rx#:[id number] Calcium Gluconate in NaCl 100 1 gm In Saline 1 100ml. bag @ 100 mls/hr IVPB Q1H [facility] Rx#:[id number] Norepinephrine 32 mg In 250 219.704 Sodium Chloride 0.9% 218 ml @ 0.5 MCG/KG/MIN 25. 547 mls/hr IV .Q9H48M [facility] Rx#:[id number] Vasopressin 60 unit In 153 Sodium Chloride 0.9% 150 ml @ 0.04 UNITS/MIN 6.12 mls/hr IV .Q24H [facility] Rx#: [id number] Other 120 Output: Gastric Drainage 400 Urine 275 505 140 Stool 800 400 Other: Voiding Method Indwelling Catheter Indwelling Catheter ABP, PAP, CO, CI - Last Documented Arterial Blood Pressure 117/46 - Labs CBC & Chem 7: 08/24/22 04:52 08/24/22 04:52 Labs: Abnormal Lab Results - Last 24 Hours (Table) 08/23/22 08/23/22 08/23/22 Range/Units 11:40 11:40 16:32 WBC (3.8-10.6) k/uL RBC (3.80-5.40) m/uL Hgb (11.4-16.0) gm/dL Hct (34.0-46.0) % MCHC (31.0-37.0) g/dL RDW (11.5-15.5) % Neutrophils # (Manual) (1.3-7.7) k/uL Nucleated RBCs (0-0) /100 WBC ABG pH (7.35-7.45) Sodium (137-145) mmol/L Carbon Dioxide (22-30) mmol/L BUN (7-17) mg/dL Creatinine (0.52-1.04) mg/dL POC Glucose (mg/dL) 165 H 159 H (70-110) mg/dL Calcium (8.4-10.2) mg/dL Ionized Calcium [place] (4.5-5.3) mg/dL AST (14-36) U/L Alkaline Phosphatase (38-126) U/L Ammonia 210 H (<30) umol/L Total Protein (6.3-8.2) g/dL Albumin (3.5-5.0) g/dL 08/23/22 08/23/22 08/23/22 Range/Units 20:36 20:43 20:48 WBC (3.8-10.6) k/uL RBC (3.80-5.40) m/uL Hgb (11.4-16.0) gm/dL Hct (34.0-46.0) % MCHC (31.0-37.0) g/dL RDW (11.5-15.5) % Neutrophils # (Manual) (1.3-7.7) k/uL Nucleated RBCs (0-0) /100 WBC ABG pH (7.35-7.45) Sodium (137-145) mmol/L Carbon Dioxide (22-30) mmol/L BUN (7-17) mg/dL Creatinine (0.52-1.04) mg/dL POC Glucose (mg/dL) 21 L 35 L 113 H (70-110) mg/dL Calcium (8.4-10.2) mg/dL Ionized Calcium [place] (4.5-5.3) mg/dL AST (14-36) U/L Alkaline Phosphatase (38-126) U/L Ammonia (<30) umol/L Total Protein (6.3-8.2) g/dL Albumin (3.5-5.0) g/dL 08/24/22 08/24/22 08/24/22 Range/Units 04:52 04:52 04:52 WBC 17.2 H (3.8-10.6) k/uL RBC 2.72 L (3.80-5.40) m/uL Hgb 7.1 L (11.4-16.0) gm/dL Hct 23.2 L (34.0-46.0) % MCHC 30.8 L (31.0-37.0) g/dL RDW 17.6 H (11.5-15.5) % Neutrophils # (Manual) 14.70 H (1.3-7.7) k/uL Nucleated RBCs 2 H (0-0) /100 WBC ABG pH (7.35-7.45) Sodium 135 L (137-145) mmol/L Carbon Dioxide 20 L (22-30) mmol/L BUN 83 H (7-17) mg/dL Creatinine 1.90 H (0.52-1.04) mg/dL POC Glucose (mg/dL) (70-110) mg/dL Calcium 5.1 L* (8.4-10.2) mg/dL Ionized Calcium [place] 3.3 L* (4.5-5.3) mg/dL AST 84 H (14-36) U/L Alkaline Phosphatase 166 H (38-126) U/L Ammonia 150 H (<30) umol/L Total Protein 4.3 L (6.3-8.2) g/dL Albumin 1.8 L (3.5-5.0) g/dL 08/24/22 08/24/22 08/24/22 Range/Units 05:38 06:20 09:33 WBC (3.8-10.6) k/uL RBC (3.80-5.40) m/uL Hgb (11.4-16.0) gm/dL Hct (34.0-46.0) % MCHC (31.0-37.0) g/dL RDW (11.5-15.5) % Neutrophils # (Manual) (1.3-7.7) k/uL Nucleated RBCs (0-0) /100 WBC ABG pH 7.33 L (7.35-7.45) Sodium (137-145) mmol/L Carbon Dioxide (22-30) mmol/L BUN (7-17) mg/dL Creatinine (0.52-1.04) mg/dL POC Glucose (mg/dL) 55 L 132 H (70-110) mg/dL Calcium (8.4-10.2) mg/dL Ionized Calcium [place] (4.5-5.3) mg/dL AST (14-36) U/L Alkaline Phosphatase (38-126) U/L Ammonia (<30) umol/L Total Protein (6.3-8.2) g/dL Albumin (3.5-5.0) g/dL Microbiology - Last 24 Hours (Table) 08/23/22 11:40 Blood Culture Gram Stain - Preliminary Blood 08/19/22 18:00 Stool Culture - Final Stool 08/23/22 11:40 Blood Culture - Final Blood Assessment and Plan Plan: Assessment: 1. Acute kidney injury secondary to ATN secondary to septic shock. Baseline creatinine near 0.8 from June 2022 - peaked at 2.77 this admission -0.9 today. Urine output 40-50 mL an hour. No hydronephrosis noted on CAT scan. 2. Septic shock secondary to UTI, fungemia and bacteremia. CAT scan done in 08/20/2022 showed pneumoperitoneum. On antibiotics/antifungal and vasopressor support. 3. Metabolic acidosis secondary to acute kidney injury. On bicarb drip. 4. Hypokalemia from poor intake and diuresis. Being replaced. 5. Acute hypoxic respiratory failure. 6. A. fib with RVR. On amiodarone drip. Cardiology following. 8. Hypernatremia from lack of oral water intake. Status post water flushes. Improved. 9. Hypocalcemia secondary to acute kidney injury. Ionized calcium is low. Plan: Maintain bicarb drip. Status post IV albumin given 08/23/2021. Maintain IV Lasix 80 mg once daily. Calcium replaced. Wean FiO2 and vasopressors. Avoid nephrotoxins. Continue to monitor renal function and urine output. Continue to assess daily for need for renal replacement therapy. No urgency at this time. Patient remains hemodynamically unstable. Prognosis guarded.
[2022-08-24] MEDS: LORazepam 2 MG/ML INJ IV PRN ×4 (10:53→21:19)
--- NOTE | 2022-08-24 12:17 | P.PN ---
Subjective Progress Note Date: 08/24/22 CHIEF COMPLAINT: Abdominal pain HISTORY OF PRESENT ILLNESS: Patient remains in the ICU intubated and on m echanical ventilation. Patient remains maximized on pressors. Patient had abnormal EEG and is followed by neurology. She has a fecal management system in place. Afebrile. WBC 15.3 up to 17.2 Hgb 7.1 platelets 313 sodium 135 potassium 3.6 creatinine 1.90 Family is now wishing to proceed with tra cheostomy. The is not ready to proceed with hospice care. PHYSICAL EXAM: VITAL SIGNS: Reviewed GENERAL: On mechanical ventilation. Office sedation. no acute distress. Head is atraumatic, normocephalic. No nasal drainage. NECK: Supple without lymphadenopathy. CHEST: Non-labored respirations and equal bilateral excursions. CARDIOVASCULAR: Palpable 2+ radial pulses. ABDOMEN: Distended. NG tube with bilious output MUSCULOSKELETAL: No clubbing or cyanosis. ASSESSMENT: 1. Colon perforation 2. Sigmoid volvulus 3. Constipation 4. Sepsis and septic shock 5. UTI 6. Lactic acidosis 7. Acute on chronic kidney disease 8. History of atrial fibrillation 9. History of CVA 9. Hypokalemia 10. Hypocalcemia 11. Blood culture with yeast 12. Hepatic encephalopathy with elevated ammonia PLAN: -Recommend hospice care -No surgical intervention planned -Patient is considered high risk for surgical intervention -Continue TPN for nutrition support -Continue antibiotics -Continue supportive care -Continue GI and DVT prophylaxis Physician Saturator Tender note has been reviewed by physician. Signing provider agrees with the documented findings, assessment, and plan of care. Objective - Vital Signs Vital signs: Vital Signs Temp 97.7 F 08/24/22 08:00 Pulse 124 H 08/24/22 12:00 Resp 28 H 08/24/22 12:00 BP 99/52 08/19/22 16:39 Pulse Ox 96 08/24/22 12:00 FiO2 50 08/24/22 10:57 Intake & Output 08/23/22 08/24/22 08/24/22 18:59 06:59 18:59 Intake Total 1831 2184.590 1268 Output Total 1075 905 825 Balance 756 1279.590 443 Weight 138.3 kg 137.1 kg Intake: IV 1178 1416 618 0.9% @ KVO 70 230 50 Ceftolozane/Tazobactam 0. 200 100 100 75 gm In Sodium Chloride 0.9% 100 ml @ 100 mls/hr IV Q8HR [facility] Rx#:[id number] DAPTOmycin 500 mg In 50 Sodium Chloride 0.9% 50 ml @ 100 mls/hr IVPB Q48H [facility] Rx#:[id number] Dextrose 5% in Water 1, 675 900 450 000 ml @ 75 mls/hr IV . [id number] [facility] with Sodium Bicarb (1 Meq/ml) 150 ml Rx#:[id number] Lacosamide IV 100 mg In 50 50 Sodium Chloride 0.9% 50 ml @ 100 mls/hr IVPB BID [facility] Rx#:[id number] Pressure Bag 33 36 18 levETIRAcetam IV 750 mg 100 100 In Sodium Chloride 0.9% 100 ml @ 400 mls/hr IVPB Q12HR [facility] Rx#:[id number] Intake, IV Titration 653 648.590 650 Amount Albumin Human 25% 50 ml 50 In Empty Bag 1 bag @ 50 mls/hr IVPB ONCE ONE Rx#: [id number] Albumin Human 25% 50 ml 50 In Empty Bag 1 bag @ 50 mls/hr IVPB ONCE ONE Rx#: [id number] Amiodarone 450 mg In 378.886 250 Dextrose 5% in Water 250 ml @ 1 MG/MIN 33.333 mls/ hr IV .Q7H30M [facility] Rx#: [id number] Anidulafungin 100 mg In 100 Sodium Chloride 0.9% 100 ml @ 84 mls/hr IVPB DAILY [facility] Rx#:[id number] Calcium Gluconate in NaCl 200 1 gm In Saline 1 100ml. bag @ 100 mls/hr IVPB ONCE ONE Rx#:[id number] Calcium Gluconate in NaCl 200 1 gm In Saline 1 100ml. bag @ 100 mls/hr IVPB Q1H [facility] Rx#:[id number] Lacosamide IV 150 mg In 100 Sodium Chloride 0.9% 50 ml @ 100 mls/hr IVPB BID [facility] Rx#:[id number] Norepinephrine 32 mg In 250 219.704 Sodium Chloride 0.9% 218 ml @ 0.5 MCG/KG/MIN 25. 547 mls/hr IV .Q9H48M [facility] Rx#:[id number] Vasopressin 60 unit In 153 Sodium Chloride 0.9% 150 ml @ 0.04 UNITS/MIN 6.12 mls/hr IV .Q24H [facility] Rx#: [id number] Other 120 Output: Gastric Drainage 400 Urine 275 505 425 Stool 800 400 Other: Voiding Method Indwelling Catheter Indwelling Catheter ABP, PAP, CO, CI - Last Documented Arterial Blood Pressure 108/44 - Labs CBC & Chem 7: 08/24/22 04:52 08/24/22 04:52 Labs: Abnormal Lab Results - Last 24 Hours (Table) 08/23/22 08/23/22 08/23/22 Range/Units 16:32 20:36 20:43 WBC (3.8-10.6) k/uL RBC (3.80-5.40) m/uL Hgb (11.4-16.0) gm/dL Hct (34.0-46.0) % MCHC (31.0-37.0) g/dL RDW (11.5-15.5) % Neutrophils # (Manual) (1.3-7.7) k/uL Nucleated RBCs (0-0) /100 WBC ABG pH (7.35-7.45) Sodium (137-145) mmol/L Carbon Dioxide (22-30) mmol/L BUN (7-17) mg/dL Creatinine (0.52-1.04) mg/dL POC Glucose (mg/dL) 159 H 21 L 35 L (70-110) mg/dL Calcium (8.4-10.2) mg/dL Ionized Calcium [place] (4.5-5.3) mg/dL AST (14-36) U/L Alkaline Phosphatase (38-126) U/L Ammonia (<30) umol/L Total Protein (6.3-8.2) g/dL Albumin (3.5-5.0) g/dL 08/23/22 08/24/22 08/24/22 Range/Units 20:48 04:52 04:52 WBC 17.2 H (3.8-10.6) k/uL RBC 2.72 L (3.80-5.40) m/uL Hgb 7.1 L (11.4-16.0) gm/dL Hct 23.2 L (34.0-46.0) % MCHC 30.8 L (31.0-37.0) g/dL RDW 17.6 H (11.5-15.5) % Neutrophils # (Manual) 14.70 H (1.3-7.7) k/uL Nucleated RBCs 2 H (0-0) /100 WBC ABG pH (7.35-7.45) Sodium (137-145) mmol/L Carbon Dioxide (22-30) mmol/L BUN (7-17) mg/dL Creatinine (0.52-1.04) mg/dL POC Glucose (mg/dL) 113 H (70-110) mg/dL Calcium (8.4-10.2) mg/dL Ionized Calcium [place] (4.5-5.3) mg/dL AST (14-36) U/L Alkaline Phosphatase (38-126) U/L Ammonia 150 H (<30) umol/L Total Protein (6.3-8.2) g/dL Albumin (3.5-5.0) g/dL 08/24/22 08/24/22 08/24/22 Range/Units 04:52 05:38 06:20 WBC (3.8-10.6) k/uL RBC (3.80-5.40) m/uL Hgb (11.4-16.0) gm/dL Hct (34.0-46.0) % MCHC (31.0-37.0) g/dL RDW (11.5-15.5) % Neutrophils # (Manual) (1.3-7.7) k/uL Nucleated RBCs (0-0) /100 WBC ABG pH 7.33 L (7.35-7.45) Sodium 135 L (137-145) mmol/L Carbon Dioxide 20 L (22-30) mmol/L BUN 83 H (7-17) mg/dL Creatinine 1.90 H (0.52-1.04) mg/dL POC Glucose (mg/dL) 55 L (70-110) mg/dL Calcium 5.1 L* (8.4-10.2) mg/dL Ionized Calcium [place] 3.3 L* (4.5-5.3) mg/dL AST 84 H (14-36) U/L Alkaline Phosphatase 166 H (38-126) U/L Ammonia (<30) umol/L Total Protein 4.3 L (6.3-8.2) g/dL Albumin 1.8 L (3.5-5.0) g/dL 08/24/22 Range/Units 09:33 WBC (3.8-10.6) k/uL RBC (3.80-5.40) m/uL Hgb (11.4-16.0) gm/dL Hct (34.0-46.0) % MCHC (31.0-37.0) g/dL RDW (11.5-15.5) % Neutrophils # (Manual) (1.3-7.7) k/uL Nucleated RBCs (0-0) /100 WBC ABG pH (7.35-7.45) Sodium (137-145) mmol/L Carbon Dioxide (22-30) mmol/L BUN (7-17) mg/dL Creatinine (0.52-1.04) mg/dL POC Glucose (mg/dL) 132 H (70-110) mg/dL Calcium (8.4-10.2) mg/dL Ionized Calcium [place] (4.5-5.3) mg/dL AST (14-36) U/L Alkaline Phosphatase (38-126) U/L Ammonia (<30) umol/L Total Protein (6.3-8.2) g/dL Albumin (3.5-5.0) g/dL Microbiology - Last 24 Hours (Table) 08/23/22 11:40 Blood Culture Gram Stain - Preliminary Blood 08/19/22 18:00 Stool Culture - Final Stool 08/23/22 11:40 Blood Culture - Final Blood
[2022-08-24] MEDS ORDERED: MIDAZOLAM 1 MG/ML 5 ML VIAL IV STA (12:23)
[2022-08-24] MEDS: MIDAZOLAM HCL 50 MG in SODIUM CHLORIDE 0.9% 40 ML IV SCH ×2 (12:44→17:22)
[2022-08-24 13:01] LABS: Glucose,Whole Blood 143 mg/dL (70-110)
--- NOTE | 2022-08-24 13:43 | P.PN ---
Subjective Progress Note Date: 08/24/22 Principal diagnosis: Acute on chronic hypoxic respiratory failure secondary to acute diastolic congestive heart failure, and septic shock. With abdominal sepsis and bowel perforation. 08/20/2022, I'm seeing the patient for a follow-up. Since yesterday, the patient has taken a turn to the worse. As of yesterday, the patient started having episodes of fever with a T-max of 103.1. At the same time, the patient's blood pressure was getting more soft and the patient was becoming more hypotensive in the urine output dropped considerably. As such, the patient had to be placed on a higher dose of pressors. The patient was given a total of 2 L of IV fluids. Vancomycin was also added to the regimen as the patient is taking currently a combination of Zerbaxa and Eraxis. On today's evaluation, the patient is still off sedation. The patient is on a mechanical ventilator on assist control mode of mechanical ventilation rate of 28 with a tidal volume of 400 and a PEEP of 5 and FiO2 of 40%. The chest x-ray shows limited bibasilar pulmonary infiltrates. ET tube is in a good location. No signs of any consolidation or pulmonary edema. The blood gas shows a pH of 7.2 with a pCO2 of 33 and a pO2 of 76. As such, the patient has become progressively more acidotic. Hemodynamically, the patient has become more hypotensive and the patient is currently on a combination of vasopressin physiologic dose and a norepinephrine had to be brought up to 0.2 mcg/kg/m. Urine output is extremely low at this point in time. The white cell count has come up to 26.6 from 19.9 a nd the hemoglobin is at 8.7. Noted the patient was given units of packed RBC for a hemoglobin of 6.9 yesterday and hemoglobin is at 8.7 today. The patient has become also acidotic. Urine is at 67 with a creatinine of 1.4. Serum bicarb is at 17 and this is a non-anion gap metabolic acidosis. Sodium is at 141 with a potassium level of 4.7. LFTs are normal. The patient is receiving TPN through a midline in the left upper extremity at the rate of 68 mL an hour. She also has a triple-lumen catheter in the left subclavian. The patient is in a positive fluid balance. The patient is still febrile. The patient is stooling. The laxatives have been discontinued. She is currently has a fecal management system in Place and stool was also sent for C. diff.. The patient is unresponsive to any verbal or painful stimulation at this point in time and she's been off sedation for the past 48 hours. His obvious component of metabolic encephalopathy secondary to ovulation comorbidities. She remains on amiodarone drip at 1 mg/m. She remains in atrial fibrillation. She is on anticoagulation with Eliquis 5 mg by mouth twice a day. Reevaluated today on 08/21/2022, patient remains on the ventilator, intubated mechanically ventilated, on assist control rate 28, volume 400 FiO2 40% PEEP of 5. ABG showed a pO2 of 82 pCO2 34 pH of 7.29, patient was placed on bicarb drip earlier by nephrology. She is maximized on norepinephrine at 0.5 mcg/kg/m she is also on amiodarone 1 mg/m vasopressin at 0.[address] of the abdomen yesterday showed bowel perforation and pneumoperitoneum of blood is positive for enterococcus. Patient is atrial fibrillation with RVR. Family today is at bedside, and had a long discussion with the and the daughter, explained to them that her condition is basically extremely poor, and the patient will not make it considering her new finding of abdominal sepsis. They were made aware yesterday by the surgeon about her bowel perforation, the surgeon and the family felt that she is extremely high surgical risk, hence no surgery was done for her abdominal sepsis and bowel perforation. In the meantime the patient is maximized on pressors she is also on antibiotics, her WBC scan is 17.8 hemoglobin is 8.2 bicarb is 16 BUN is 76 creatinine 1.73. The primary care physician Dr. Hartman talk to the about her condition and he was able to change her CODE STATUS to DO NOT RESUSCITATE CODE STATUS. However the family is still not agreeable to consider comfort care measures. I even suggested stopping the presses and down the line consider comfort care but not yet at this point. Family does not seem to be very agreeable. Patient is on good course of antibiotics, which is also on antifungal therapy. Also on bronchodilators. Being followed by infectious disease and now she is on daptomycin, patient is also on Eraxis, and zerbaxa Patient was reevaluated today on 08/22/22, admitted ICU intubated mechanically ventilated. She is maximized on pressors, she is on assist control rate of 28th of volume 400 FiO2 40% PEEP of 5 ABG showed a pO2 of 65 pCO2 36 pH of 7.31. Patient is on 0.5 g ventricular per minute of norepinephrine 0.04 units per minute of vasopressin remains on bicarb drip, remains on amiodarone 1 mg/m and her normal saline at 100 mL per hour. WBC count is 16.5 hemoglobin is 7.8. Sick metabolic profile is normal renal profile is abnormal with BUN of 83 creatinine 1.79 and remains on antibiotics as per infectious disease on the case. Chest x-ray showed bibasilar atelectasis and consolidations. And small tiny right-sided pleural effusion endotracheal tube and orogastric tube are in proper positions Reevaluated today on patient remains in the ICU, she is intubated and mechanically ventilated. Patient is on assist control rate of 28, tidal volume 400 FiO2 50% PEEP of 5 ABG showed a pO2 of 90 pCO2 39 pH of 7.31. Patient is still maximized on pressors including norepinephrine at 0.5 mcg/kg/m vasopressin at 0.04 units per minute still receiving bicarb 3 A in 1 L of D5W at 75 mL per hour remains on amiodarone at 1 mg/m IV fluid at KVO heart rate is 110 to 130. Chest x-ray showing bibasilar infiltrates/atelectasis and small pleural effusions, not much of a twisting frame changer the last couple of days. The peak and today's 15.3 hemoglobin is 7.5. Renal profile is abnormal with BUN of 83 creati nine 2.13. Ammonia level is 210. Not much of a change overall in the last 24 hours, patient remains very critically ill. And I believe her condition is mostly futile. is reluctant to consider comfort care measures on this patient. reevaluated today on 08/24/2022, patient remains in the ICU, remains intubated and mechanically ventilated, she is on assist control rate of 28 tidal volume 400 FiO2 50% PEEP of 5. ABG showed a pO2 of 84 pCO2 of 39 pH of 7.33. Patient remains maximized on pressors, she is on norepinephrine at 0.5 mcg/kg/m vasopressin 0.04 units per minute she is also on amiodarone 1 mg/m, still on sodium bicarb 3 A in 1 L of D5W running at 70 mL per hour. Patient is being considered now for tracheostomy and PEG tube placement, although I strongly believe that the patient's condition is futile. Her blood cultures are now positive for Enterococcus faecium, sputum cultures are positive for MRSA. I'm not surprised that her rate blood cultures are positive considering the patient has significantly profound abdominal sepsis and bowel perforation that being treated medically and not surgically.even if we change the lines on this patient, that would get reinfected since the patient has ongoing abdominal sepsis and possibly abdominal abscesses,hence I'm extremely reluctant to change her lines at this point when there is ongoing abdominal sepsis.patient is rece iving antibiotics, I have strongly recommended comfort care measures on this patient, but the seems to be reluctant to consider such recommendation, and he seems to be agreeable to proceed with tracheostomy and PEG tube placement which is again the extreme at this pointnonetheless the patient has been intubated now for almost 2 weeks. Objective - Vital Signs Vital signs: Vital Signs Temp 97.7 F 08/24/22 08:00 Pulse 121 H 08/24/22 13:00 Resp 28 H 08/24/22 13:00 BP 99/52 08/19/22 16:39 Pulse Ox 97 08/24/22 13:00 FiO2 50 08/24/22 12:00 Intake & Output 08/23/22 08/24/22 08/24/22 18:59 06:59 18:59 Intake Total 1831 2184.590 1268 Output Total 1075 905 825 Balance 756 1279.590 443 Weight 138.3 kg 137.1 kg 137.1 kg Intake: IV 1178 1416 618 0.9% @ KVO 70 230 50 Ceftolozane/Tazobactam 0. 200 100 100 75 gm In Sodium Chloride 0.9% 100 ml @ 100 mls/hr IV Q8HR [facility] Rx#:[id number] DAPTOmycin 500 mg In 50 Sodium Chloride 0.9% 50 ml @ 100 mls/hr IVPB Q48H [facility] Rx#:[id number] Dextrose 5% in Water 1, 675 900 450 000 ml @ 75 mls/hr IV . [id number] [facility] with Sodium Bicarb (1 Meq/ml) 150 ml Rx#:[id number] Lacosamide IV 100 mg In 50 50 Sodium Chloride 0.9% 50 ml @ 100 mls/hr IVPB BID [facility] Rx#:[id number] Pressure Bag 33 36 18 levETIRAcetam IV 750 mg 100 100 In Sodium Chloride 0.9% 100 ml @ 400 mls/hr IVPB Q12HR [facility] Rx#:[id number] Intake, IV Titration 653 648.590 650 Amount Albumin Human 25% 50 ml 50 In Empty Bag 1 bag @ 50 mls/hr IVPB ONCE ONE Rx#: [id number] Albumin Human 25% 50 ml 50 In Empty Bag 1 bag @ 50 mls/hr IVPB ONCE ONE Rx#: [id number] Amiodarone 450 mg In 378.886 250 Dextrose 5% in Water 250 ml @ 1 MG/MIN 33.333 mls/ hr IV .Q7H30M [facility] Rx#: [id number] Anidulafungin 100 mg In 100 Sodium Chloride 0.9% 100 ml @ 84 mls/hr IVPB DAILY [facility] Rx#:[id number] Calcium Gluconate in NaCl 200 1 gm In Saline 1 100ml. bag @ 100 mls/hr IVPB ONCE ONE Rx#:[id number] Calcium Gluconate in NaCl 200 1 gm In Saline 1 100ml. bag @ 100 mls/hr IVPB Q1H [facility] Rx#:[id number] Lacosamide IV 150 mg In 100 Sodium Chloride 0.9% 50 ml @ 100 mls/hr IVPB BID [facility] Rx#:[id number] Norepinephrine 32 mg In 250 219.704 Sodium Chloride 0.9% 218 ml @ 0.5 MCG/KG/MIN 25. 547 mls/hr IV .Q9H48M [facility] Rx#:[id number] Vasopressin 60 unit In 153 Sodium Chloride 0.9% 150 ml @ 0.04 UNITS/MIN 6.12 mls/hr IV .Q24H [facility] Rx#: [id number] Other 120 Output: Gastric Drainage 400 Urine 275 505 425 Stool 800 400 Other: Voiding Method Indwelling Catheter Indwelling Catheter Indwelling Catheter ABP, PAP, CO, CI - Last Documented Arterial Blood Pressure 113/45 - Exam GENERAL EXAM: Intubated, sedated, 87-year-old morbidly obese female, sedated, not in distress intubated and mechanically ventilated HEAD: Normocephalic. EYES: Sluggish reaction of pupils, equal size. NOSE: Nasogastric tube secured in place. Clear with pink turbinates. THROAT: Oral endotracheal tube in place. NECK: No masses, no JVD. CHEST: No chest wall deformity. LUNGS: Equal air entry with crackles in the bilateral bases. CVS: S1 and S2 normal with no audible murmur, irregular rhythm. ABDOMEN: No hepatosplenomegaly, normal bowel sounds, no guarding or rigidity. SKIN: No rashes CENTRAL NERVOUS SYSTEM: Sedated,Could not assess. EXTREMITIES: 3+ peripheral edema. Changes of chronic venous stasis. No clubbing - Labs CBC & Chem 7: 08/24/22 04:52 08/24/22 04:52 Labs: Abnormal Lab Results - Last 24 Hours (Table) 08/23/22 08/23/22 08/23/22 Range/Units 16:32 20:36 20:43 WBC (3.8-10.6) k/uL RBC (3.80-5.40) m/uL Hgb (11.4-16.0) gm/dL Hct (34.0-46.0) % MCHC (31.0-37.0) g/dL RDW (11.5-15.5) % Neutrophils # (Manual) (1.3-7.7) k/uL Nucleated RBCs (0-0) /100 WBC ABG pH (7.35-7.45) Sodium (137-145) mmol/L Carbon Dioxide (22-30) mmol/L BUN (7-17) mg/dL Creatinine (0.52-1.04) mg/dL POC Glucose (mg/dL) 159 H 21 L 35 L (70-110) mg/dL Calcium (8.4-10.2) mg/dL Ionized Calcium [place] (4.5-5.3) mg/dL AST (14-36) U/L Alkaline Phosphatase (38-126) U/L Ammonia (<30) umol/L Total Protein (6.3-8.2) g/dL Albumin (3.5-5.0) g/dL 08/23/22 08/24/22 08/24/22 Range/Units 20:48 04:52 04:52 WBC 17.2 H (3.8-10.6) k/uL RBC 2.72 L (3.80-5.40) m/uL Hgb 7.1 L (11.4-16.0) gm/dL Hct 23.2 L (34.0-46.0) % MCHC 30.8 L (31.0-37.0) g/dL RDW 17.6 H (11.5-15.5) % Neutrophils # (Manual) 14.70 H (1.3-7.7) k/uL Nucleated RBCs 2 H (0-0) /100 WBC ABG pH (7.35-7.45) Sodium (137-145) mmol/L Carbon Dioxide (22-30) mmol/L BUN (7-17) mg/dL Creatinine (0.52-1.04) mg/dL POC Glucose (mg/dL) 113 H (70-110) mg/dL Calcium (8.4-10.2) mg/dL Ionized Calcium [place] (4.5-5.3) mg/dL AST (14-36) U/L Alkaline Phosphatase (38-126) U/L Ammonia 150 H (<30) umol/L Total Protein (6.3-8.2) g/dL Albumin (3.5-5.0) g/dL 08/24/22 08/24/22 08/24/22 Range/Units 04:52 05:38 06:20 WBC (3.8-10.6) k/uL RBC (3.80-5.40) m/uL Hgb (11.4-16.0) gm/dL Hct (34.0-46.0) % MCHC (31.0-37.0) g/dL RDW (11.5-15.5) % Neutrophils # (Manual) (1.3-7.7) k/uL Nucleated RBCs (0-0) /100 WBC ABG pH 7.33 L (7.35-7.45) Sodium 135 L (137-145) mmol/L Carbon Dioxide 20 L (22-30) mmol/L BUN 83 H (7-17) mg/dL Creatinine 1.90 H (0.52-1.04) mg/dL POC Glucose (mg/dL) 55 L (70-110) mg/dL Calcium 5.1 L* (8.4-10.2) mg/dL Ionized Calcium [place] 3.3 L* (4.5-5.3) mg/dL AST 84 H (14-36) U/L Alkaline Phosphatase 166 H (38-126) U/L Ammonia (<30) umol/L Total Protein 4.3 L (6.3-8.2) g/dL Albumin 1.8 L (3.5-5.0) g/dL 08/24/22 08/24/22 Range/Units 09:33 12:59 WBC (3.8-10.6) k/uL RBC (3.80-5.40) m/uL Hgb (11.4-16.0) gm/dL Hct (34.0-46.0) % MCHC (31.0-37.0) g/dL RDW (11.5-15.5) % Neutrophils # (Manual) (1.3-7.7) k/uL Nucleated RBCs (0-0) /100 WBC ABG pH (7.35-7.45) Sodium (137-145) mmol/L Carbon Dioxide (22-30) mmol/L BUN (7-17) mg/dL Creatinine (0.52-1.04) mg/dL POC Glucose (mg/dL) 132 H 143 H (70-110) mg/dL Calcium (8.4-10.2) mg/dL Ionized Calcium [place] (4.5-5.3) mg/dL AST (14-36) U/L Alkaline Phosphatase (38-126) U/L Ammonia (<30) umol/L Total Protein (6.3-8.2) g/dL Albumin (3.5-5.0) g/dL Microbiology - Last 24 Hours (Table) 08/23/22 11:40 Blood Culture Gram Stain - Preliminary Blood 08/19/22 18:00 Stool Culture - Final Stool 08/23/22 11:40 Blood Culture - Final Blood Assessment and Plan Assessment: Impression: Acute on chronic hypoxic respiratory failure Acute on chronic diastolic congestive heart failure Abdominal sepsis and septic shock Anion gap metabolic acidosis Urinary tract infection secondary to Enterococcus faecalis and pseudomonas aeruginosa bacteremia secondary to enterococcus faecium Systemic candidiasis with positive cultures for Ange. Atrial fibrillation with RVR requiring amiodarone drip Acute on chronic kidney disease Recent history of COVID-19 infection History of valvular heart disease with aortic stenosis, patient is an excellent set up for endocarditis Acute on chronic anemia History of underlying COPD History of diastolic congestive heart failure Recommendation:I'm still recommending comfort care measures because of the medical futility in this situation, however the is still reluctant to consider comfort care measures hence patient should have a trach and PEG tube placement since she had been on mechanical ventilation with endotracheal tube for over 2 weeks Continue ventilatory support Continue hemodynamic support however would not recommend higher doses of norepinephrine and vasopressin, patient is maximized. Continue present supportive care measures Continue antibiotics as per infectious disease on the case. Continue GI and DVT prophylaxis continue lactulose, ammonia level seems to be coming down.but not back to normal. Patient is critically ill consult general surgery for possible tracheostomy and PEG tube placement We will continue to follow Critical care time is over 30 minutes Time with Patient: Greater than 30
[2022-08-24] MEDS ORDERED: MVI, ADULT NO.4 WITH VIT K 10 ML, TRACE (CONC-1ML/DOSE) 1 ML, SODIUM ACETATE 30 MEQ, PO... IV SCH ×7 (15:00)
--- NOTE | 2022-08-24 15:11 | P.GSCN ---
History of Present Illness Consult date: 08/24/22 History of present illness: CHIEF COMPLAINT: Shortness of breath and abdominal pain HISTORY OF PRESENT ILLNESS: This is a 87-year-old female multiple medical issues. She is hospitalized with perforated bowel, sepsis, bacteremia, UTI and respiratory failure. Patient has been hospitalized for 16 days. She remains on mechanical ventilation. They're unable to wean patient. Patient is not waking up. She is off of sedation. She is maxed out on pressors. Dr. mccall has been consulted for tracheostomy placement. Patient seen and examined with Dr. mccall PAST MEDICAL HISTORY: See below PAST SURGICAL HISTORY: See below MEDICATIONS: See below ALLERGIES: See below SOCIAL HISTORY: No illicit drug use. REVIEW OF SYSTEMS: CONSTITUTIONAL: Denies fever or chills. HEENT: Denies blurred vision, vision changes, or eye pain. Denies hemoptysis CARDIOVASCULAR: Denies chest pain or pressure. RESPIRATORY: No shortness of breath. GASTROINTESTINAL: See HPI for pertinent findings HEMATOLOGIC: Denies bleeding disorders. GENITOURINARY: Denies any blood in urine or increased urinary frequency. SKIN: Denies pruitis. Denies rash. PHYSICAL EXAM: VITAL SIGNS: Reviewed GENERAL: On mechanical ventilation ABDOMEN: Soft. Obese. Distended NEUROLOGIC: Unresponsive LABORATORY DATA: WBC 17.2 HB7.1 platelets 313 sodium 135 potassium 3.6 creatinine 1.90 ammonia 150 total bilirubin 0.5 AST 84 ALT 17 alk phos 166 albumin 1.8 IMAGING: ASSESSMENT: 1. Acute on chronic hypoxic respiratory failure 2. Abdominal sepsis with septic shock 3. Perforated bowel 4. Sigmoid volvulus 5. Bacteremia 7. Atrial fibrillation with RVR 8. CHF exacerbation 10. Acute on chronic renal failure PLAN: -Patient scheduled for tracheostomy placement tomorrow with Dr. mccall -Eliquis discontinued due to surgical intervention Thank you for this consultation [facility] [employer] Person note has been reviewed by physician. Signing provider agrees with the documented findings, assessment, and plan of care. Past Medical History Past Medical History: Coronary Artery Disease (CAD), Chest Pain / Angina, Heart Failure, COPD, CVA/TIA, Diabetes Mellitus, Hyperlipidemia, Hypertension, Myocardial Infarction (VT), Osteoarthritis (OA), Renal Disease, Sleep Apnea/CPAP/BIPAP, Thyroid Disorder Additional Past Medical History / Comment(s): Pt recently admitted to [facility] on 05/21/22/ gravely disabled, UTI, acquired hypothyroidism, exacerbation copd and chf, anemia. Other hx: IDDM type II, neuropathy bilateral hands/feet, CKD stage III, urinary retention, UTIs, anemia, home oxygen use ATC, bilateral lower extremity edema, current pressure ulcer decub per pt, gastritis, hiatal hernia, aortic stenosis, hemorrhoids. Last Myocardial Infarction Date:: 06/18/17 History of Any Multi-Drug Resistant Organisms: ESBL, Other MDRO Year Discovered:: 09/06/17 MDRO Source:: ESBL URINE Past Surgical History: Back Surgery, Heart Catheterization, Heart Catheterization With Stent, Joint Replacement, Orthopedic Surgery Additional Past Surgical History / Comment(s): Lumbar laminectomy decompression fusion L3-4 and L5-S1 with cell saver, lumbar instrumentation removal L4-5, L4- L5 laminectomy, BILATERAL KNEE REPLACEMENTS, ORIF RIGHT ANKLE, CERVICAL FUSION, bilateral rotator cuff repair, bilateral wrist carpal tunnel releases, pain procedures, left breast lumpectomy-benign, bilateral varicose vein stripping, bilateral cataracts, heart cath with 5 stents august 2021, egd/colonoscopy 04/13/22 Past Anesthesia/Blood Transfusion Reactions: No Reported Reaction Additional Past Anesthesia/Blood Transfusion Reaction / Comm: blood transfusion 04/01/[address] estrella's notes last hospital stay Date of Last Stent Placement:: 08/30/2021 Past Psychological History: No Psychological Hx Reported Additional Psychological History / Comment(s): Pt resides with her spouse. She has home care thru [facility]. She states she is now wheelchair bound. She has home oxygen. She receives some services thru [facility]. Smoking Status: Former smoker Past Alcohol Use History: None Reported Additional Past Alcohol Use History / Comment(s): Pt started smoking in 1955 and quit in 1974. She was a 1.5 ppd smoker. Past Drug Use History: None Reported - Past Family History Father Family Medical History: Myocardial Infarction (VT) Additional Family Medical History / Comment(s): Father at 40 of a VT. Mother Family Medical History: CVA/TIA Additional Family Medical History / Comment(s): Mother had a CVA Medications and Allergies Home Medications Medication Instructions Recorded Confirmed Type Nitroglycerin Sl Tabs [Nitrostat] 0.4 mg SL Q5M PRN 07/20/15 08/08/22 History Atorvastatin Calcium [Lipitor] 40 mg PO HS #1 tab 08/04/15 08/08/22 Rx Fluticasone/Umeclidin/Vilanter 1 puff INHALATION RT-HS 10/15/21 08/08/22 History [Trelegy Ellipta 100-62.5-25] Apixaban [Eliquis] 2.5 mg PO BID 12/09/21 08/08/22 History Amitriptyline HCl [Elavil] 100 mg PO HS 03/13/22 08/08/22 History Cyanocobalamin (Vitamin B-12) 1,000 mcg PO DAILY 03/13/22 08/08/22 History [Vitamin B-12] Gabapentin 300 mg PO TID #9 cap 04/04/22 08/08/22 Rx Furosemide [Lasix] 40 mg PO DAILY tab 04/13/22 08/08/22 Rx Amiodarone [Cordarone] 200 mg PO DAILY #90 tab 04/14/22 08/08/22 Rx Metoprolol Tartrate [Lopressor] 25 mg PO BID tab 04/14/22 08/08/22 Rx HYDROcodone/APAP 5-325MG [Monarch 1 tab PO Q6H PRN 05/21/22 08/08/22 History 5-325] Insulin Lispro [humaLOG Kwikpen] See Protocol SQ ACHS PRN 05/21/22 08/08/22 History Calcium Carbonate [Tums] 1,000 mg PO Q6H PRN 08/08/22 08/08/22 History Docusate [Colace] 100 mg PO BID 08/08/22 08/08/22 History Ipratropium-Albuterol Nebulize 3 ml INHALATION RT-QID 08/08/22 08/08/22 History [Duoneb 0.5 mg-3 mg/3 ml Soln] Levothyroxine Sodium [Synthroid] 75 mcg PO DAILY 08/08/22 08/08/22 History Psyllium Husk 100% [Metamucil 6 gm PO DAILY 08/08/22 08/08/22 History Packet] Tamsulosin [Flomax] 0.4 mg PO DAILY 08/08/22 08/08/22 History metFORMIN HCL 1,000 mg PO BID 08/08/22 08/08/22 History Allergies Allergy/AdvReac Type Severity Reaction Status Date / Time Penicillins Allergy Rash/Hives Verified 08/08/22 17:14 Surgical - Exam Vital Signs Resp BP Pulse Ox 24 118/76 87 L 08/08/22 12:47 08/08/22 12:47 08/08/22 12:47 Results - Labs 08/24/22 04:52 08/24/22 04:52 Abnormal Lab Results - Last 24 Hours (Table) 08/23/22 08/23/22 08/23/22 Range/Units 16:32 20:36 20:43 WBC (3.8-10.6) k/uL RBC (3.80-5.40) m/uL Hgb (11.4-16.0) gm/dL Hct (34.0-46.0) % MCHC (31.0-37.0) g/dL RDW (11.5-15.5) % Neutrophils # (Manual) (1.3-7.7) k/uL Nucleated RBCs (0-0) /100 WBC ABG pH (7.35-7.45) Sodium (137-145) mmol/L Carbon Dioxide (22-30) mmol/L BUN (7-17) mg/dL Creatinine (0.52-1.04) mg/dL POC Glucose (mg/dL) 159 H 21 L 35 L (70-110) mg/dL Calcium (8.4-10.2) mg/dL Ionized Calcium Leesa (4.5-5.3) mg/dL AST (14-36) U/L Alkaline Phosphatase (38-126) U/L Ammonia (<30) umol/L Total Protein (6.3-8.2) g/dL Albumin (3.5-5.0) g/dL 08/23/22 08/24/22 08/24/22 Range/Units 20:48 04:52 04:52 WBC 17.2 H (3.8-10.6) k/uL RBC 2.72 L (3.80-5.40) m/uL Hgb 7.1 L (11.4-16.0) gm/dL Hct 23.2 L (34.0-46.0) % MCHC 30.8 L (31.0-37.0) g/dL RDW 17.6 H (11.5-15.5) % Neutrophils # (Manual) 14.70 H (1.3-7.7) k/uL Nucleated RBCs 2 H (0-0) /100 WBC ABG pH (7.35-7.45) Sodium (137-145) mmol/L Carbon Dioxide (22-30) mmol/L BUN (7-17) mg/dL Creatinine (0.52-1.04) mg/dL POC Glucose (mg/dL) 113 H (70-110) mg/dL Calcium (8.4-10.2) mg/dL Ionized Calcium Leesa (4.5-5.3) mg/dL AST (14-36) U/L Alkaline Phosphatase (38-126) U/L Ammonia 150 H (<30) umol/L Total Protein (6.3-8.2) g/dL Albumin (3.5-5.0) g/dL 08/24/22 08/24/22 08/24/22 Range/Units 04:52 05:38 06:20 WBC (3.8-10.6) k/uL RBC (3.80-5.40) m/uL Hgb (11.4-16.0) gm/dL Hct (34.0-46.0) % MCHC (31.0-37.0) g/dL RDW (11.5-15.5) % Neutrophils # (Manual) (1.3-7.7) k/uL Nucleated RBCs (0-0) /100 WBC ABG pH 7.33 L (7.35-7.45) Sodium 135 L (137-145) mmol/L Carbon Dioxide 20 L (22-30) mmol/L BUN 83 H (7-17) mg/dL Creatinine 1.90 H (0.52-1.04) mg/dL POC Glucose (mg/dL) 55 L (70-110) mg/dL Calcium 5.1 L* (8.4-10.2) mg/dL Ionized Calcium Leesa 3.3 L* (4.5-5.3) mg/dL AST 84 H (14-36) U/L Alkaline Phosphatase 166 H (38-126) U/L Ammonia (<30) umol/L Total Protein 4.3 L (6.3-8.2) g/dL Albumin 1.8 L (3.5-5.0) g/dL 08/24/22 08/24/22 Range/Units 09:33 12:59 WBC (3.8-10.6) k/uL RBC (3.80-5.40) m/uL Hgb (11.4-16.0) gm/dL Hct (34.0-46.0) % MCHC (31.0-37.0) g/dL RDW (11.5-15.5) % Neutrophils # (Manual) (1.3-7.7) k/uL Nucleated RBCs (0-0) /100 WBC ABG pH (7.35-7.45) Sodium (137-145) mmol/L Carbon Dioxide (22-30) mmol/L BUN (7-17) mg/dL Creatinine (0.52-1.04) mg/dL POC Glucose (mg/dL) 132 H 143 H (70-110) mg/dL Calcium (8.4-10.2) mg/dL Ionized Calcium Leesa (4.5-5.3) mg/dL AST (14-36) U/L Alkaline Phosphatase (38-126) U/L Ammonia (<30) umol/L Total Protein (6.3-8.2) g/dL Albumin (3.5-5.0) g/dL Microbiology - Last 24 Hours (Table) 08/19/22 22:00 Blood Culture Gram Stain - Final Blood Blood Culture - Final Enterococcus faecium 08/23/22 11:40 Blood Culture Gram Stain - Preliminary Blood 08/19/22 18:00 Stool Culture - Final Stool 08/23/22 11:40 Blood Culture - Final Blood Diabetes panel 08/24/22 Range/Units 04:52 Sodium 135 L (137-145) mmol/L Potassium 3.6 (3.5-5.1) mmol/L Chloride 106 (98-107) mmol/L Carbon Dioxide 20 L (22-30) mmol/L BUN 83 H (7-17) mg/dL Creatinine 1.90 H (0.52-1.04) mg/dL Glucose 87 (74-99) mg/dL Calcium 5.1 L* (8.4-10.2) mg/dL AST 84 H (14-36) U/L ALT 17 (4-34) U/L Alkaline Phosphatase 166 H (38-126) U/L Total Protein 4.3 L (6.3-8.2) g/dL Albumin 1.8 L (3.5-5.0) g/dL Calcium panel 08/24/22 Range/Units 04:52 Calcium 5.1 L* (8.4-10.2) mg/dL Ionized Calcium Leesa 3.3 L* (4.5-5.3) mg/dL Albumin 1.8 L (3.5-5.0) g/dL Pituitary panel 08/24/22 Range/Units 04:52 Sodium 135 L (137-145) mmol/L Potassium 3.6 (3.5-5.1) mmol/L Chloride 106 (98-107) mmol/L Carbon Dioxide 20 L (22-30) mmol/L BUN 83 H (7-17) mg/dL Creatinine 1.90 H (0.52-1.04) mg/dL Glucose 87 (74-99) mg/dL Calcium 5.1 L* (8.4-10.2) mg/dL Adrenal panel 08/24/22 Range/Units 04:52 Sodium 135 L (137-145) mmol/L Potassium 3.6 (3.5-5.1) mmol/L Chloride 106 (98-107) mmol/L Carbon Dioxide 20 L (22-30) mmol/L BUN 83 H (7-17) mg/dL Creatinine 1.90 H (0.52-1.04) mg/dL Glucose 87 (74-99) mg/dL Calcium 5.1 L* (8.4-10.2) mg/dL Total Bilirubin 0.5 (0.2-1.3) mg/dL AST 84 H (14-36) U/L ALT 17 (4-34) U/L Alkaline Phosphatase 166 H (38-126) U/L Total Protein 4.3 L (6.3-8.2) g/dL Albumin 1.8 L (3.5-5.0) g/dL
--- NOTE | 2022-08-24 16:41 | CT ---
EXAMINATION TYPE: CT brain wo con DATE OF EXAM: 08/24/2022 HISTORY: AMS, Seizures CT DLP: 1129.4 mGycm. Automated Exposure Control for Dose Reduction was Utilized. TECHNIQUE: CT scan of the head is performed without contrast. COMPARISON: CT Brain Without 4 days ago.. FINDINGS: There is no acute intracranial hemorrhage or midline shift identified. Ventricles and sul ci are within normal limits in size for patient's age. Mild bilateral frontal lobe atrophy redemonstr ated. Otherwise ventricles and sulci are within normal limits in size for age. Yoo-white matter diff erentiation fairly well maintained. Scleral calcification left globe redemonstrated. Dependent fluid left maxillary sinus again seen. Patchy opacification of the ethmoid sinuses bilaterally on current s tudy noted. Completely opacified bilateral mastoid air cells is redemonstrated. Abnormal soft tissue density surrounds the middle ear ossicles bilaterally. Finding new from older study May 2022 for reference. IMPRESSION: No acute intracranial hemorrhage or midline shift. Patchy paranasal sinus disease redemo nstrated. Possible bilateral mastoiditis and middle ear infection spread. Correlate clinically.
[2022-08-24 17:17] LABS: Glucose,Whole Blood 125 mg/dL (70-110)
--- NOTE | 2022-08-24 17:57 | P.PN ---
Subjective Progress Note Date: 08/24/22 H&P Date: 08/09/22 Chief Complaint: Shortness of breath,Altered mental statConstipation, syncope, hyperglycemia This is a pleasant 87-year-old female with past medical history of CAD, [place], stent placement, aortic stenosis ,chronic hypoxic respiratory failure,on 2 L nasal cannula ,[place] 06/22,COPD, former nicotine dependence, obstructive sleep apnea ,CVA/TIA, diabetes mellitus, hypertension, hyperlipidemia, hypothyroidism, recurrent UTIs,CKD III, urinary retention, anemia, bilateral peripheral neuropathy, gait dysfunction,utilizing walker, falls, morbid obesity-BMI 39.9 and multiple other medical issues brought in via ambulance, on BiPAP to the ER for change in level of consciousness, syncope, nausea, vomiting, hyperglycemia, constipation-on [place], shortness of breath, recently discharged from [facility] subacute rehab on 08/06/2022. Information being obtained from chart and daughter at bedside. Daughter reports they are unsure of her last bowel movement, possibly , 08/03. [facility] documented large bowel movement on 08/04 and 08/05. Reports yesterday blood sugars were running high in the 400s, patient developed nausea and vomiting, change in sensorium, passed out while on the toilet. Reports patient "coughs all the time, but has COPD", no knowledge of fevers, denies chills. Denies chest pain, palpitations, positive shortness of breath. Developed hypotension in the ER in addition to emesis, received fluid bolus .Chest x-ray reported right basilar infiltrate with persistent small right effusion, no overt failure. EKG reported sinus rhythm, troponin negative 1. KUB reported marked gastric distention, additional small bowel loops dilated, possibly retained debris within the rectum and sigmoid colon. 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 NG tube placed in the ER with 1200 MLS bilious output reported overnight. D-dimer elevated 4.73, CT angio chest reported no evidence of pulmonary embolism,more consolidation changes in the right lung base, rule out aspiration. ProBNP 426. UA reported many WBC clumps, 165 WBCs, large leukocytes, negative nitrates, culture pending. Afebrile, on admission temperature 96.7, currently 98.8. WBC 14.3. lactic acid 3.5, repeat level pending. Hemoglobin 10.2, platelets 4:15, a I's within normal limits, BUN 40, creatinine 1.5. BiPAP weaned off, currently requiring 6 L nasal cannula O2 to maintain O2 sats in the low 90s. 08/10/22 Continued to decline throughout the night requiring ICU admission, maintained on vasopressin, Levophed and bicarb drips. Received fluid boluses throughout the night. Lactic acid decreased to 2.1. Low urine output on Lasix IV push. BUN 81, creatinine 2.68. Hyperkalemic, received calcium, insulin, D50, sodium bicarbonate. Chest x-ray reporting stable bilateral lower lobe infiltrate and small effusion. Afebrile, T-max 99.7. Continues on Levaquin, WBC normalized today. Cefepime added to antibiotic regimen today. Preliminary Urine cultures reporting group D enterococcus 50-100,000 colonies and gram-negative bacilli 10 and 49,000 colonies. 07/03 Blood cultures reporting GNB. Hemoglobin 8.2, platelets 311. 08/11/2022 Vent dependent, FiO2 60%/+5 of PEEP. Chest x-ray reports stable, no change in bibasilar opacities, pleural effusion unchanged. Continues on the Levophed and vasopressin drips. Febrile to the night, T-max 102.4, WBC increased to 12.2. Lactic acid trended up during the night, received fluid boluses, currently at 3.2. Developed atrial fibrillation with RVR, bolused with amiodarone and currently on amiodarone drip. Urine culture reporting enterococcus faecalis and Pseudomonas aeruginosa.Films reviewed by general surgery, reporting sigmoid volvulus. Recommending conservative management. BUN 79, creatinine 2.74. Hyperglycemic. Hemoglobin 8.6, platelets 349. Anticoagulation remains on hold. 08/21/2022 remains vent dependent, FiO2 50%/+5 of PEEP. Maintained on high doses of levophed, vasopressin. Amiodarone and bicarb drips continue. Receiving IV albumin to be followed by Lasix. Worsening renal function. Staff reports no urine output 24 hours. Bicarb 16, BUN 76, creatinine 1.73. Repeat CT of abdomen and pelvis completed yesterday, reporting moderate volume pneumo peritoneum, suspected perforation of distal colonic bowel, extensive distal bowel pneumatosis. Surgery discussed findings with family, high risk for surgical intervention. Family decided against surgical intervention,but to continue with nonsurgical care. T-max 100.6. Maintained on Zerbaxa, Eraxis, daptomycin .Seizure-like activity reported yesterday afternoon, placed on Keppra, reoccurred in the multifocal button inspector hours 2. Brain CT reported no acute intracranial process .EEG completed, results pending. 08/22/2022 vent dependent, 40% FiO2, +5 of PEEP. Staff reports patient desats quickly with turning. Chest x-ray reporting bibasilar atelectasis, consolidation, minimally increased, possible tiny right basilar pleural effusion. Continues on high doses of pressors, digits dusky. Maintained on bicarb drip. Telemetry atrial fibrillation, fast ventricular rate on amiodarone drip. Remains on antibiotics as per infectious disease.BUN 83, creatinine 1.79. T-max 102, WBC decreased, 16.5 08/23/2022 FiO2 50%/+5 of PEEP. Chest x-ray reported no significant change .Continues on pressor support. Maintained on amiodarone drip, heart rates currently in the 1 teens to 120s. Continues on daptomycin, Zerbexa and Eraxis.T-max 100.9, WBC 15.3. BUN 83, creatinine 2.13. WBC decreased to 15.3. Receiving IV albumin, Albumin currently 1.6. Ionized calcium 3.4, receiving supplementation. 08/24/2022 continues in A. fib, heart rates 110 to 130s on amiodarone drip. Seizure activity yesterday reported with facial twitching lasting approximately half an hour EEG performed-reported abnormal 2-1/2 hour EEG suggesting epileptiform focus involving midline occipital parietal region. Vimpat and Keppra doses increased. Continue to have seizure activity today, right-sided face twitching, trembling of arm reported, repeat EEG in progress. Versed drip initiated. Brain Ct pending. Maximized on both norepi and vasopressin. Digits dusky, declining comfort care at this time. Continues on bicarb drip. Remains vent dependent on FiO2 50%/+5 of PEEP. Now trach and PEG are being considered. Objective - Vital Signs Vital signs: Vital Signs Temp 97.7 F 08/24/22 08:00 Pulse 122 H 08/24/22 15:49 Resp 28 H 08/24/22 15:00 BP 99/52 08/19/22 16:39 Pulse Ox 94 L 08/24/22 15:00 FiO2 50 08/24/22 15:51 Intake & Output 08/23/22 08/24/22 08/24/22 18:59 06:59 18:59 Intake Total 1831 2184.590 1568.167 Output Total 7844 774 3727 Balance 756 1279.590 568.167 Weight 138.3 kg 137.1 kg 137.1 kg Intake: IV 1178 1416 895 0.9% @ KVO 70 230 90 Ceftolozane/Tazobactam 0. 200 100 100 75 gm In Sodium Chloride 0.9% 100 ml @ 100 mls/hr IV Q8HR [facility] Rx#:[id number] DAPTOmycin 500 mg In 50 Sodium Chloride 0.9% 50 ml @ 100 mls/hr IVPB Q48H [facility] Rx#:[id number] Dextrose 5% in Water 1, 675 900 675 000 ml @ 75 mls/hr IV . [id number] [place] with Sodium Bicarb (1 Meq/ml) 150 ml Rx#:[id number] Lacosamide IV 100 mg In 50 50 Sodium Chloride 0.9% 50 ml @ 100 mls/hr IVPB BID [facility] Rx#:[id number] Pressure Bag 33 36 30 levETIRAcetam IV 750 mg 100 100 In Sodium Chloride 0.9% 100 ml @ 400 mls/hr IVPB Q12HR [facility] Rx#:[id number] Intake, IV Titration 653 648.590 673.167 Amount Albumin Human 25% 50 ml 50 In Empty Bag 1 bag @ 50 mls/hr IVPB ONCE ONE Rx#: [id number] Albumin Human 25% 50 ml 50 In Empty Bag 1 bag @ 50 mls/hr IVPB ONCE ONE Rx#: [id number] Amiodarone 450 mg In 378.886 250 Dextrose 5% in Water 250 ml @ 1 MG/MIN 33.333 mls/ hr IV .Q7H30M [facility] Rx#: [id number] Anidulafungin 100 mg In 100 Sodium Chloride 0.9% 100 ml @ 84 mls/hr IVPB DAILY [facility] Rx#:[id number] Calcium Gluconate in NaCl 200 1 gm In Saline 1 100ml. bag @ 100 mls/hr IVPB ONCE ONE Rx#:[id number] Calcium Gluconate in NaCl 200 1 gm In Saline 1 100ml. bag @ 100 mls/hr IVPB Q1H [facility] Rx#:[id number] Lacosamide IV 150 mg In 100 Sodium Chloride 0.9% 50 ml @ 100 mls/hr IVPB BID [facility] Rx#:[id number] Midazolam HCl 50 mg In 23.167 Sodium Chloride 0.9% 40 ml @ 5 MG/HR 5 mls/hr IV .Q10H [facility] Rx#:[id number] Norepinephrine 32 mg In 250 219.704 Sodium Chloride 0.9% 218 ml @ 0.5 MCG/KG/MIN 25. 547 mls/hr IV .Q9H48M [facility] Rx#:[id number] Vasopressin 60 unit In 153 Sodium Chloride 0.9% 150 ml @ 0.04 UNITS/MIN 6.12 mls/hr IV .Q24H [facility] Rx#: [id number] Other 120 Output: Gastric Drainage 400 Urine 275 505 600 Stool 800 400 Other: Voiding Method Indwelling Catheter Indwelling Catheter Indwelling Catheter ABP, PAP, CO, CI - Last Documented Arterial Blood Pressure 101/47 - Exam GENERAL EXAM: on mechanical ventilation, off of sedation, HEENT: Normocephalic. Sluggish pupils,NG present NECK: soft, unable to assess for JVD. LUNGS: Equal air entry with bilateral bases diminished, fine crackles in bilateral bases. CV: S1 and S2 normal with no audible murmur, irregular rhythm. Systolic murmur. ABDOMEN:Distended SKIN: No rashes. CENTRAL NERVOUS SYSTEM: Unable to assess, comotose on mechanical ventilation EXTREMITIES: Positive peripheral edema, dusky digits. Microbiology 08/23/22 11:40 Blood Blood Culture Gram Stain - Preliminary 08/23/22 11:40 Blood Blood Culture - Preliminary Enterococcus faecium 08/19/22 22:00 Blood Blood Culture Gram Stain - Final 08/19/22 22:00 Blood Blood Culture - Final Enterococcus faecium 08/19/22 18:00 Stool Stool Culture - Final 08/23/22 11:40 Blood Blood Culture - Final 08/19/22 21:07 Sputum Gram Stain - Final 08/19/22 21:07 Sputum Sputum Culture - Final Methicillin resist S. aureus Ange albicans 08/19/22 22:00 Blood Blood Culture - Final 08/14/22 15:00 Blood Blood Culture - Final No Growth after 144 hours 08/10/22 17:00 Blood Blood Culture - Final No Growth after 144 hours 08/08/22 13:30 Blood Blood Culture Gram Stain - Final 08/08/22 13:30 Blood Blood Culture - Final Anaerobic Gm Negative Bacilli 08/09/22 14:19 Blood Blood Culture - Final No Growth after 144 hours 08/08/22 13:00 Blood Blood Culture - Final No Growth after 144 hours 08/11/22 16:05 Blood Blood Culture Gram Stain - Final 08/11/22 16:05 Blood Blood Culture - Final Ange albicans 08/11/22 17:06 Sputum Gram Stain - Final 08/11/22 17:06 Sputum Sputum Culture - Final Ange albicans 08/11/22 16:05 Blood Blood Culture - Final 08/08/22 13:10 Urine,Voided Urine Culture - Final Enterococcus faecalis Pseudomonas aeruginosa 08/08/22 13:30 Blood Blood Culture - Final - Labs CBC & Chem 7: 08/24/22 04:52 08/24/22 04:52 Labs: Abnormal Lab Results - Last 24 Hours (Table) 08/23/22 08/23/22 08/23/22 Range/Units 20:36 20:43 20:48 WBC (3.8-10.6) k/uL RBC (3.80-5.40) m/uL Hgb (11.4-16.0) gm/dL Hct (34.0-46.0) % MCHC (31.0-37.0) g/dL RDW (11.5-15.5) % Neutrophils # (Manual) (1.3-7.7) k/uL Nucleated RBCs (0-0) /100 WBC ABG pH (7.35-7.45) Sodium (137-145) mmol/L Carbon Dioxide (22-30) mmol/L BUN (7-17) mg/dL Creatinine (0.52-1.04) mg/dL POC Glucose (mg/dL) 21 L 35 L 113 H (70-110) mg/dL Calcium (8.4-10.2) mg/dL Ionized Calcium [place] (4.5-5.3) mg/dL AST (14-36) U/L Alkaline Phosphatase (38-126) U/L Ammonia (<30) umol/L Total Protein (6.3-8.2) g/dL Albumin (3.5-5.0) g/dL 08/24/22 08/24/22 08/24/22 Range/Units 04:52 04:52 04:52 WBC 17.2 H (3.8-10.6) k/uL RBC 2.72 L (3.80-5.40) m/uL Hgb 7.1 L (11.4-16.0) gm/dL Hct 23.2 L (34.0-46.0) % MCHC 30.8 L (31.0-37.0) g/dL RDW 17.6 H (11.5-15.5) % Neutrophils # (Manual) 14.70 H (1.3-7.7) k/uL Nucleated RBCs 2 H (0-0) /100 WBC ABG pH (7.35-7.45) Sodium 135 L (137-145) mmol/L Carbon Dioxide 20 L (22-30) mmol/L BUN 83 H (7-17) mg/dL Creatinine 1.90 H (0.52-1.04) mg/dL POC Glucose (mg/dL) (70-110) mg/dL Calcium 5.1 L* (8.4-10.2) mg/dL Ionized Calcium [place] 3.3 L* (4.5-5.3) mg/dL AST 84 H (14-36) U/L Alkaline Phosphatase 166 H (38-126) U/L Ammonia 150 H (<30) umol/L Total Protein 4.3 L (6.3-8.2) g/dL Albumin 1.8 L (3.5-5.0) g/dL 08/24/22 08/24/22 08/24/22 Range/Units 05:38 06:20 09:33 WBC (3.8-10.6) k/uL RBC (3.80-5.40) m/uL Hgb (11.4-16.0) gm/dL Hct (34.0-46.0) % MCHC (31.0-37.0) g/dL RDW (11.5-15.5) % Neutrophils # (Manual) (1.3-7.7) k/uL Nucleated RBCs (0-0) /100 WBC ABG pH 7.33 L (7.35-7.45) Sodium (137-145) mmol/L Carbon Dioxide (22-30) mmol/L BUN (7-17) mg/dL Creatinine (0.52-1.04) mg/dL POC Glucose (mg/dL) 55 L 132 H (70-110) mg/dL Calcium (8.4-10.2) mg/dL Ionized Calcium [place] (4.5-5.3) mg/dL AST (14-36) U/L Alkaline Phosphatase (38-126) U/L Ammonia (<30) umol/L Total Protein (6.3-8.2) g/dL Albumin (3.5-5.0) g/dL 08/24/22 08/24/22 Range/Units 12:59 17:15 WBC (3.8-10.6) k/uL RBC (3.80-5.40) m/uL Hgb (11.4-16.0) gm/dL Hct (34.0-46.0) % MCHC (31.0-37.0) g/dL RDW (11.5-15.5) % Neutrophils # (Manual) (1.3-7.7) k/uL Nucleated RBCs (0-0) /100 WBC ABG pH (7.35-7.45) Sodium (137-145) mmol/L Carbon Dioxide (22-30) mmol/L BUN (7-17) mg/dL Creatinine (0.52-1.04) mg/dL POC Glucose (mg/dL) 143 H 125 H (70-110) mg/dL Calcium (8.4-10.2) mg/dL Ionized Calcium [place] (4.5-5.3) mg/dL AST (14-36) U/L Alkaline Phosphatase (38-126) U/L Ammonia (<30) umol/L Total Protein (6.3-8.2) g/dL Albumin (3.5-5.0) g/dL Microbiology - Last 24 Hours (Table) 08/23/22 11:40 Blood Culture Gram Stain - Preliminary Blood Blood Culture - Preliminary Enterococcus faecium 08/19/22 22:00 Blood Culture Gram Stain - Final Blood Blood Culture - Final Enterococcus faecium 08/19/22 18:00 Stool Culture - Final Stool 08/23/22 11:40 Blood Culture - Final Blood Assessment and Plan Assessment: Sepsis, septic shock secondary to acute enterococcus faecalis and Pseudomonas aeruginosa UTI, with acute VRE bacteremia ,abdominal sepsis. Systemic candidiasis with positive cultures for Ange Hypotension secondary to the above, pressor dependent Seizure activity, workup in progress, neurology following Fevers Acute on chronic hypoxic respiratory failure, ventilator dependent, secondary to all the above Hyperammonium Chronic changes of the right lower lobe and small right pleural effusion as per pulmonary Acute on CKD III, secondary to ATN related to the above Atrial fibrillation with RVR, on amiodarone drip In a patient with history of chronic atrial fibrillation Metabolic acidosis, on bicarb drip Abdominal pain, constipation, last bowel movement reported 08/05.Films reviewed by general surgery, reporting sigmoid volvulus. Continued clinical worsening;Probable perforated viscus with pneumoperitoneum reported per CT on 08/20/2022. Leukocytosis Diabetes mellitus, family reports hyperglycemic at home, controlled IP, A1c 6. Recent COVID-19 infection, 06/22 COPD Valvular heart disease, moderate aortic stenosis, preserved LV function Chronic anemia Generalized weakness, gait dysfunction, multiple falls recently reported, recently discharged from [facility] subacute rehab. 08/06/22. History of CVA, TIA History of Hypertension Hyperlipidemia Hypothyroidism Morbid obesity No code, no CPR, no reintubation Plan: Continue on current medication regime ,monitoring and symptomatic treatment. Multiple consults following ;ICU management as per dinkey motor operator. Antibiotics as per infectious disease. Prognosis poor, /family declining comfort care at this time. Questions and concerns addressed. The impression and plan of care has been dictated as directed. : I performed a history and examination of this patient, discussed the same with the dictator. I agree with the dictator's note ,documented as a scribe. Any additional findings or plans will be noted.
--- NOTE | 2022-08-24 19:11 | PN ---
PROGRESS NOTE SUBJECTIVE: Concepcion is an 87-year-old lady, who is admitted to ICU with obstructed bowel and subsequently developed bowel perforation, and we are following her because of atrial fibrillation. Her overall condition remains the same. She is still intubated, not responsive, and remains in atrial fibrillation with poorly controlled ventricular rate and maximal doses of pressors. OBJECTIVE: VITAL SIGNS: Heart rate is around 110 to 120 beats per minute, blood pressure is 108/40, respiratory rate is 18. CHEST: Reveals diminished air entry at the bases. HEART: Reveals first and second heart sounds. Irregular rhythm. ABDOMEN: Appears distended. EXTREMITIES: Revealed 1+ edema. MEDICATIONS: The patient is on, 1. Amiodarone. 2. Eliquis. 3. IV Lasix. 4. Antibiotics. LABORATORYDATA: Labs show that white cell count is elevated at 17.2, platelet count is 313. ASSESSMENT: 1. Persistent atrial fibrillation with poorly controlled ventricular rate. 2. Perforated bowel. 3. Severe hypotension. PLAN: Prognosis is very guarded. I will continue with the current measures. MMODL / IJN: [id number] /
--- NOTE | 2022-08-24 21:03 | P.PN ---
Subjective Progress Note Date: 08/24/22 Principal diagnosis: Sepsis/septic shock Patient is a 87-year-old female with multiple comorbidities presented to the hospital with a syncopal episode weakness subsequently hypotension, sepsis requiring transfer to the ICU and intubation on the vent. She patient did have a CT of abdominal pelvis completed on 08/20/2022 with evidence of pneumoperitoneum Gen. surgery discussed with the family currently being treated medically On today's evaluation that is 08/24/2022, the patient fever pattern has improved and the patient is afebrile this morning, the patient continues to be requiring max pressor support to maintain her blood pressure per the nursing staff, the pa tient FiO2 is currently stable at 40 %, no significant purulent secretions through the ET , patient did have NG to suction and did have a fecal management system for her diarrhea, patient has been getting EEG concerning for seizure and CT of the brain has been ordered Objective - Vital Signs Vital signs: Vital Signs Temp 97.7 F 08/24/22 08:00 Pulse 117 H 08/24/22 09:00 Resp 28 H 08/24/22 09:00 BP 99/52 08/19/22 16:39 Pulse Ox 94 L 08/24/22 09:00 FiO2 50 08/24/22 09:00 Intake & Output 08/23/22 08/24/22 08/24/22 18:59 06:59 18:59 Intake Total 1831 2184.590 574 Output Total 1075 905 540 Balance 756 1279.590 34 Weight 138.3 kg 137.1 kg Intake: IV 1178 1416 374 0.9% @ KVO 70 230 40 Ceftolozane/Tazobactam 0. 200 100 100 75 gm In Sodium Chloride 0.9% 100 ml @ 100 mls/hr IV Q8HR [facility] Rx#:[id number] DAPTOmycin 500 mg In 50 Sodium Chloride 0.9% 50 ml @ 100 mls/hr IVPB Q48H [facility] Rx#:[id number] Dextrose 5% in Water 1, 675 900 225 000 ml @ 75 mls/hr IV . [id number] [facility] with Sodium Bicarb (1 Meq/ml) 150 ml Rx#:[id number] Lacosamide IV 100 mg In 50 50 Sodium Chloride 0.9% 50 ml @ 100 mls/hr IVPB BID [facility] Rx#:[id number] Pressure Bag 33 36 9 levETIRAcetam IV 750 mg 100 100 In Sodium Chloride 0.9% 100 ml @ 400 mls/hr IVPB Q12HR [facility] Rx#:[id number] Intake, IV Titration 653 648.590 200 Amount Albumin Human 25% 50 ml 50 In Empty Bag 1 bag @ 50 mls/hr IVPB ONCE ONE Rx#: [id number] Albumin Human 25% 50 ml 50 In Empty Bag 1 bag @ 50 mls/hr IVPB ONCE ONE Rx#: [id number] Amiodarone 450 mg In 378.886 Dextrose 5% in Water 250 ml @ 1 MG/MIN 33.333 mls/ hr IV .Q7H30M [facility] Rx#: [id number] Anidulafungin 100 mg In 100 Sodium Chloride 0.9% 100 ml @ 84 mls/hr IVPB DAILY [facility] Rx#:[id number] Calcium Gluconate in NaCl 200 1 gm In Saline 1 100ml. bag @ 100 mls/hr IVPB ONCE ONE Rx#:[id number] Calcium Gluconate in NaCl 100 1 gm In Saline 1 100ml. bag @ 100 mls/hr IVPB Q1H [facility] Rx#:[id number] Norepinephrine 32 mg In 250 219.704 Sodium Chloride 0.9% 218 ml @ 0.5 MCG/KG/MIN 25. 547 mls/hr IV .Q9H48M [facility] Rx#:[id number] Vasopressin 60 unit In 153 Sodium Chloride 0.9% 150 ml @ 0.04 UNITS/MIN 6.12 mls/hr IV .Q24H [facility] Rx#: [id number] Other 120 Output: Gastric Drainage 400 Urine 275 505 140 Stool 800 400 Other: Voiding Method Indwelling Catheter Indwelling Catheter ABP, PAP, CO, CI - Last Documented Arterial Blood Pressure 117/46 - Exam GENERAL DESCRIPTION: An elderly female intubated on the vent RESPIRATORY SYSTEM: Unlabored breathing , decreased breath sounds at bases HEART: S1 S2 regular rate and rhythm , ABDOMEN: Soft , abdominal distention EXTREMITIES: Lower extremity swelling no redness - Labs CBC & Chem 7: 08/24/22 04:52 08/24/22 04:52 Labs: Abnormal Lab Results - Last 24 Hours (Table) 08/23/22 08/23/22 08/23/22 Range/Units 11:40 11:40 16:32 WBC (3.8-10.6) k/uL RBC (3.80-5.40) m/uL Hgb (11.4-16.0) gm/dL Hct (34.0-46.0) % MCHC (31.0-37.0) g/dL RDW (11.5-15.5) % Neutrophils # (Manual) (1.3-7.7) k/uL Nucleated RBCs (0-0) /100 WBC ABG pH (7.35-7.45) Sodium (137-145) mmol/L Carbon Dioxide (22-30) mmol/L BUN (7-17) mg/dL Creatinine (0.52-1.04) mg/dL POC Glucose (mg/dL) 165 H 159 H (70-110) mg/dL Calcium (8.4-10.2) mg/dL Ionized Calcium [place] (4.5-5.3) mg/dL AST (14-36) U/L Alkaline Phosphatase (38-126) U/L Ammonia 210 H (<30) umol/L Total Protein (6.3-8.2) g/dL Albumin (3.5-5.0) g/dL 08/23/22 08/23/22 08/23/22 Range/Units 20:36 20:43 20:48 WBC (3.8-10.6) k/uL RBC (3.80-5.40) m/uL Hgb (11.4-16.0) gm/dL Hct (34.0-46.0) % MCHC (31.0-37.0) g/dL RDW (11.5-15.5) % Neutrophils # (Manual) (1.3-7.7) k/uL Nucleated RBCs (0-0) /100 WBC ABG pH (7.35-7.45) Sodium (137-145) mmol/L Carbon Dioxide (22-30) mmol/L BUN (7-17) mg/dL Creatinine (0.52-1.04) mg/dL POC Glucose (mg/dL) 21 L 35 L 113 H (70-110) mg/dL Calcium (8.4-10.2) mg/dL Ionized Calcium [place] (4.5-5.3) mg/dL AST (14-36) U/L Alkaline Phosphatase (38-126) U/L Ammonia (<30) umol/L Total Protein (6.3-8.2) g/dL Albumin (3.5-5.0) g/dL 08/24/22 08/24/22 08/24/22 Range/Units 04:52 04:52 04:52 WBC 17.2 H (3.8-10.6) k/uL RBC 2.72 L (3.80-5.40) m/uL Hgb 7.1 L (11.4-16.0) gm/dL Hct 23.2 L (34.0-46.0) % MCHC 30.8 L (31.0-37.0) g/dL RDW 17.6 H (11.5-15.5) % Neutrophils # (Manual) 14.70 H (1.3-7.7) k/uL Nucleated RBCs 2 H (0-0) /100 WBC ABG pH (7.35-7.45) Sodium 135 L (137-145) mmol/L Carbon Dioxide 20 L (22-30) mmol/L BUN 83 H (7-17) mg/dL Creatinine 1.90 H (0.52-1.04) mg/dL POC Glucose (mg/dL) (70-110) mg/dL Calcium 5.1 L* (8.4-10.2) mg/dL Ionized Calcium [place] 3.3 L* (4.5-5.3) mg/dL AST 84 H (14-36) U/L Alkaline Phosphatase 166 H (38-126) U/L Ammonia 150 H (<30) umol/L Total Protein 4.3 L (6.3-8.2) g/dL Albumin 1.8 L (3.5-5.0) g/dL 08/24/22 08/24/22 08/24/22 Range/Units 05:38 06:20 09:33 WBC (3.8-10.6) k/uL RBC (3.80-5.40) m/uL Hgb (11.4-16.0) gm/dL Hct (34.0-46.0) % MCHC (31.0-37.0) g/dL RDW (11.5-15.5) % Neutrophils # (Manual) (1.3-7.7) k/uL Nucleated RBCs (0-0) /100 WBC ABG pH 7.33 L (7.35-7.45) Sodium (137-145) mmol/L Carbon Dioxide (22-30) mmol/L BUN (7-17) mg/dL Creatinine (0.52-1.04) mg/dL POC Glucose (mg/dL) 55 L 132 H (70-110) mg/dL Calcium (8.4-10.2) mg/dL Ionized Calcium [place] (4.5-5.3) mg/dL AST (14-36) U/L Alkaline Phosphatase (38-126) U/L Ammonia (<30) umol/L Total Protein (6.3-8.2) g/dL Albumin (3.5-5.0) g/dL Microbiology - Last 24 Hours (Table) 08/23/22 11:40 Blood Culture Gram Stain - Preliminary Blood 08/19/22 18:00 Stool Culture - Final Stool 08/23/22 11:40 Blood Culture - Final Blood Assessment and Plan (1) Sepsis Current Visit: Yes Status: Acute Code(s): A41.9 - SEPSIS, UNSPECIFIED ORGANISM SNOMED Code(s): 90647011 Plan: 1patient was in the hospital with sepsis and septic shock initially concern for multidrug-resistant Pseudomonas UTI, patient also have a candidemia secondary to possible abdominal source and now with a VRE bacteremia source likely abdominal 2patient did have evidence of colonic perforation and peritonitis being managed medically as the patient considered to be high risk for any surgical procedure 3patient did have persistent VRE bacteremia and could be related to the multiple lines patient has discussed with the RN to check with inseam leveler for change of her lines, patient to continue with daptomycin Zerbexa and Eraxis, prognosis remains to be guarded Time with Patient: Less than 30
[2022-08-24 21:14] LABS: Glucose,Whole Blood 200 mg/dL (70-110)
[2022-08-25] MEDS: CEFTOLOZANE/TAZOBACTAM 0.75 GM in SODIUM CHLORIDE 0.9% 100 ML IV SCH ×3 (00:51→17:06)
[2022-08-25] MEDS: INSULIN ASPART (NovoLOG) 100 UNIT/ML VIAL SQ SCH ×6 (00:58→20:50)
[2022-08-25 01:03] LABS: Glucose,Whole Blood 231 mg/dL (70-110)
[2022-08-25] MEDS: MIDAZOLAM HCL 50 MG in SODIUM CHLORIDE 0.9% 40 ML IV SCH ×3 (01:43→17:58)
--- NOTE | 2022-08-25 03:52 | EEG ---
ELECTROENCEPHALOGRAM REPORT ELECTROENCEPHALOGRAM (EEG) REPORT: TECHNIQUE: This is a report from a prolonged 2.5-hour inpatient digital video EEG performed using the 10/20 international electrode placement system. HISTORY: Pneumonia, respiratory failure, decreased blood pressure, recent right shoulder and right facial twitching. CURRENT MEDICATIONS: 1. Keppra. 2. Ativan. Please note that during the course of this study, the patient was given 2 mg of IV Ativan at 12:30:12 and 5 mg of Versed at 12:40:34. This did not necessarily result in any significant EEG changes. Also during the course of the study, right-sided facial twitching was noted by the technologist at 11:38:52, right shoulder twitching was noted at 11:40:56, right shoulder twitching was noted at 12:58:14 and 13:46:56. There was no significant evolution of the electrographic activity. BACKGROUND: A sustained posterior dominant rhythm was not seen, please see section on abnormalities below. ACTIVATION: Hyperventilation: Not performed. Photic stimulation: Not performed. Sleep: Distinctive sleep stages not seen. ABNORMALITIES: 1. The most prominent abnormality of this recording was 1 hertz LPDs plus in the form of poly sharp and slow waves with the left parietal region with spread to the left occipital region. This finding was essentially the same as yesterday's recording. However, the difference was this had a more anterior field of threat. These discharges were by some runs of mixed sharp and delta range slowing over the same region. 2. There was volume conduction of the discharge as mentioned in #1 above to the right posterior quadrants. Noting that there was also some semi-periodic and periodic sharp and slow wave activity seen over the right posterior quadrants, although less in the left posterior quadrants. Overall, the localized to the left posterior quadrants. 3. Diffuse synchronous and asynchronous 2-3 hertz slow wave activity was seen. IMPRESSION: Abnormal 2.5-hour video EEG. No definitive seizures were recorded. As mentioned, episodes of right facial twitching and right shoulder twitching were noted. These were not definitively visible on camera. However, there was no significant electrographic evolution. This EEG's most prominent finding was runs of 1 hertz LPDs plus there was lateralized periodic discharges, sharp and slow and poly sharp and slow over the left parietal regions with spread more anteriorly. There were also some discharges semi- periodic LPDs over the right posterior quadrants. CONCLUSION: These findings indicate the presence of an active epileptiform focus involving the left parietal region. These findings can be seen with the presence of a structural abnormality of epileptiform origin involving the corresponding region and additional epileptiform focus involving the right occipital/right parietal region cannot be excluded. The diffuse delta range slowing mentioned above is not epileptiform in nature. These findings also indicate severe diffuse cerebral dysfunction. These findings were called to the neurologist taking care of the patient at 04:38 p.m. on 08/24/2022. MMANGÉLICAL / IJN: [id number] /
[2022-08-25 04:54] LABS: ABG HCO3 20 mmol/L (21-25); ABG Oxygen Saturation 96.3 % (94-97); ABG PCO2 42 mmHg (35-45); ABG PH 7.28 (7.35-7.45); ABG PO2 91 mmHg (83-108); ABG TCO2 21 mmol/L (19-24); Allen Test Performed? Yes
[2022-08-25 05:00] LABS: Glucose,Whole Blood 246 mg/dL (70-110)
[2022-08-25 05:55] LABS: Ionized Calcium 3.4 mg/dL (4.5-5.3)
[2022-08-25 05:56] LABS: Albumin 1.7 g/dL (3.5-5.0); Anisocytosis Slight; HCT 24.3 % (34.0-46.0); HGB 7.3 gm/dL (11.4-16.0); Hypochromasia Moderate; MCH 25.8 pg (25.0-35.0); MCV 85.9 fL (80.0-100.0); Magnesium 1.7 mg/dL (1.6-2.3); Mean Platelet Volume 9.5; Phosphorus 7.2 mg/dL (2.5-4.5); Platelet Count 315 k/uL (150-450); Poikilocytosis Slight; RBC 2.83 m/uL (3.80-5.40); RDW 17.8 % (11.5-15.5); Total Bilirubin 0.5 mg/dL (0.2-1.3); Total Protein 4.2 g/dL (6.3-8.2)
[2022-08-25 06:06] LABS: Calcium 5.2 mg/dL (8.4-10.2)
[2022-08-25] MEDS: LORazepam 2 MG/ML INJ IV PRN (06:20)
[2022-08-25 06:51] LABS: Band Neutrophils % 2 %; Lymphocytes # (M) 0.87 k/uL (1.0-4.8); Monocytes # (M) 0.22 k/uL (0-1.0); Neutrophils % (M) 94 %; Nucleated Red Blood Cells 1 /100 WBC (0-0); Total Cells Counted 200; WBC 21.7 k/uL (3.8-10.6)
[2022-08-25 06:52] LABS: Poikilocytosis (M) Present; Polychromasia Present; Target Cells Present
[2022-08-25] MEDS ORDERED: PHENYTOIN SODIUM INJ 1,000 MG in SODIUM CHLORIDE 0.9% 100 ML IVPB STA ×2 (07:07→11:10)
[2022-08-25] MEDS: NOREPINEPHRINE 32 MG in SODIUM CHLORIDE 0.9% 218 ML IV SCH ×3 (07:10→20:59)
[2022-08-25] MEDS: INSULIN DETEMIR (LEVEMIR) 100 UNIT/ML SYR SQ SCH (07:17)
[2022-08-25] MEDS: ALBUTEROL NEBULIZED 2.5 MG/3 ML INHALATION SCH ×4 (07:37→20:32)
[2022-08-25] MEDS: BUDESONIDE 1 MG/2 ML NEBU INHALATION SCH ×2 (07:37→20:32)
[2022-08-25] MEDS: FORMOTEROL FUMARATE 20 MCG/2 ML NEBU INHALATION SCH ×2 (07:37→20:32)
[2022-08-25] MEDS: IPRATROPIUM 0.5 MG/2.5 ML NEBU INHALATION SCH ×4 (07:37→20:32)
--- NOTE | 2022-08-25 08:27 | XR ---
EXAMINATION TYPE: XR chest 1V portable DATE OF EXAM: 08/25/2022 COMPARISON: NONE HISTORY: TECHNIQUE: Single frontal view of the chest is obtained. Findings: Bibasilar atelectasis and consolidation with possible small bibasilar pleural effusion. Pneumonia is in the differential. No pneumothorax. Heart appears prominent. Mediastinum is within normal limits. E ndotracheal tube, nasogastric tube, and left-sided central line are in stable position. IMPRESSION: Bibasilar atelectasis/consolidation and possible small pleural effusions.
[2022-08-25 08:40] LABS: Glucose,Whole Blood 245 mg/dL (70-110)
--- NOTE | 2022-08-25 08:42 | EEG ---
ELECTROENCEPHALOGRAM REPORT ELECTROENCEPHALOGRAM (EEG) REPORT: TECHNIQUE: This is a report from a prolonged 2.5-hour inpatient digital video EEG performed using the 10/20 international electrode placement system. HISTORY: Pneumonia, sepsis, respiratory failure, possible seizure activity. OTHER MEDICAL HISTORY: Includes coronary artery disease, COPD, diabetes, hypertension, hyperlipidemia. CURRENT MEDICATIONS: 1. Vimpat. 2. Keppra. FINDINGS: Recording start time: 08/23/2022 at 07:37 a.m. Recording end time: 08/23/2022 at 10:11 a.m. EVENTS: During this 2.5-hour EEG, no clinical seizures were recorded. Findings were consistent with ictal interictal continuum, please see section on abnormalities below. BACKGROUND: A sustained posterior dominant rhythm was not seen. Frequencies of the posterior quadrants consisted of poorly modulated 2-3 Hz waveforms. ACTIVATION: 1. Hyperventilation: Not performed. 2. Photic stimulation: No driving seen. 3. Sleep: Drowsy. ABNORMALITIES: 1. The most prominent feature of this recording was runs of periodic 1 hertz moderate voltage sharp waves and sharp and slow waves seen over the posterior quadrants with phase reversals at 01, 02, P3 and P4. Maximal amplitude had a shifting emphasis between the left and the right posterior quadrants. 2. As mentioned above, these occurred in periodic runs with a frequency of 1 hertz. These can be considered LPDs plus lateralized periodic discharges plus, the morphology of these varied, some of them had an after going slow wave, some did not. 3. Diffuse 1-3 hertz slow wave activity was seen over the more anterior regions. IMPRESSION: Abnormal 2.5-hour video EEG. This EEG demonstrates findings consistent with ictal interictal continuum. In particular, runs of 1 hertz lateralized periodic discharges plus were seen over the posterior quadrants with a shifting emphasis between the right and the left occipital regions. These sharp waves and sharp and slow waves, LPDs are epileptiform in nature. These findings indicate the presence of an epileptiform focus involving the midline occipital region, more than 1 epileptiform focus involving the left and right occipital regions cannot necessarily be excluded. The diffuse delta range slowing mentioned above is not epileptiform in nature. CONCLUSION: These findings can be seen with the presence of a structural abnormality/abnormalities of epileptiform origin involving the corresponding regions. Please note that some of these discharges had a triphasic morphology. In addition, LPDs plus can be seen in the postictal state that is post seizures. These findings were called to the consulting neurologist at 1815 on 08/23/2022. Please note this is an updated report due to previous technical difficulties. MMODL / IJN: [id number] /
[2022-08-25] MEDS: CHLORHEXIDINE GLUCONATE 15 ML CUP MUCOUS MEM SCH ×2 (08:48→20:58)
[2022-08-25] MEDS: FUROSEMIDE 10 MG/ML 10 ML VIAL IV SCH (08:48)
[2022-08-25] MEDS: PANTOPRAZOLE 40 MG/10 ML VIAL IVP SCH (08:48)
[2022-08-25] MEDS: POTASSIUM CHLORIDE 20 MEQ in WATER FOR INJECTION 1 100ML.BAG IVPB SCH ×3 (08:49→18:46)
[2022-08-25] MEDS: CALCIUM GLUCONATE IN NACL 1 GM in SALINE 1 100ML.BAG IVPB SCH ×3 (08:49→18:04)
--- NOTE | 2022-08-25 09:23 | P.PN ---
Subjective Progress Note Date: 08/24/22 08/24/2022: Patient was seen for a follow-up. Patient is undergoing EEG at this time. Patient continues to have PLEDS. Patient was given Ativan 2 mg without much improvement, then repeated at another 2 mg Ativan. Patient subsequently received Versed 5 mg IV push without improvement, started on Versed drip 5 mg per hour. Patient states on pressors with vasopressin and Levophed. Patient continues to be comatose. Occasional twitching of the right shoulder noticed. I had discussed case with Dr. Hagen yesterday after he reported abnormal prolonged EEG about transfer patient to [facility], but he mentioned that beds were not available. 08/23/2022: Patient was seen for a follow-up. Patient is intubated, not on any sedation. She is on full pressors with Levophed and vasopressin. Also on 3 antibiotics, anti-seizure medications including Keppra and Vimpat. Patient had sporadic seizure-like activity with facial twitching. No definite arm twitching noted. Episode lasted for about 30 minutes. At present there is no twitching noticeable. Patient's and grandchildren were present today. 08/22/2022: Patient was seen for a follow-up. Patient's daughter was also present today. Patient recently had temperature of 100.3. About an hour prior to spiking temperature, patient had some facial twitching, with jaw opening and closing, that lasted for half an hour. No upper extremity movement was noted at that time. Patient continues to be on Keppra 750 mg twice a day. Patient continues to be on high-dose pressors. Patient at present is no code, but full medical treatment. 08/21/2022: Patient initially seen by Dr. Edouard Peres. Please refer to his note for details. Patient is an 87-year-old female with altered mental status. Patient has septic encephalopathy. Patient had a seizure-like activity yesterday at 1:15 PM with head jerking and left arm jerking. Patient was given Ativan 4 mg, and the seizure-like stopped. Patient was given a loading dose of Keppra 1000 mg IV and then maintained on 500 mg twice a day. Patient had again seizure-like activity at 3 AM lasted for 45 minutes and then 5 AM and patient was given another loading dose of 500 mg Keppra. Nurse called me today at around 7:30 AM. It lasted for 20-30 minutes. Patient was again given Valium 4 mg in the seizure- like activity resolved. Patient was started on Vimpat 100 mg twice a day IV PB. EEG was performed today, which was abnormal sleep EEG due to background slowing of moderate degree. Some sharply contoured waves were seen in the left parietal region. No clear-cut epileptiform activity was seen. Objective - Vital Signs Vital signs: Vital Signs Temp 97.7 F 08/24/22 08:00 Pulse 124 H 08/24/22 12:00 Resp 28 H 08/24/22 12:00 BP 99/52 08/19/22 16:39 Pulse Ox 96 08/24/22 12:00 FiO2 50 08/24/22 12:00 Intake & Output 08/23/22 08/24/22 08/24/22 18:59 06:59 18:59 Intake Total 1831 2184.590 1268 Output Total 1075 905 825 Balance 756 1279.590 443 Weight 138.3 kg 137.1 kg Intake: IV 1178 1416 618 0.9% @ KVO 70 230 50 Ceftolozane/Tazobactam 0. 200 100 100 75 gm In Sodium Chloride 0.9% 100 ml @ 100 mls/hr IV Q8HR [facility] Rx#:[id number] DAPTOmycin 500 mg In 50 Sodium Chloride 0.9% 50 ml @ 100 mls/hr IVPB Q48H [facility] Rx#:[id number] Dextrose 5% in Water 1, 675 900 450 000 ml @ 75 mls/hr IV . [id number] [facility] with Sodium Bicarb (1 Meq/ml) 150 ml Rx#:[id number] Lacosamide IV 100 mg In 50 50 Sodium Chloride 0.9% 50 ml @ 100 mls/hr IVPB BID [facility] Rx#:[id number] Pressure Bag 33 36 18 levETIRAcetam IV 750 mg 100 100 In Sodium Chloride 0.9% 100 ml @ 400 mls/hr IVPB Q12HR [facility] Rx#:[id number] Intake, IV Titration 653 648.590 650 Amount Albumin Human 25% 50 ml 50 In Empty Bag 1 bag @ 50 mls/hr IVPB ONCE ONE Rx#: [id number] Albumin Human 25% 50 ml 50 In Empty Bag 1 bag @ 50 mls/hr IVPB ONCE ONE Rx#: [id number] Amiodarone 450 mg In 378.886 250 Dextrose 5% in Water 250 ml @ 1 MG/MIN 33.333 mls/ hr IV .Q7H30M [facility] Rx#: [id number] Anidulafungin 100 mg In 100 Sodium Chloride 0.9% 100 ml @ 84 mls/hr IVPB DAILY [facility] Rx#:[id number] Calcium Gluconate in NaCl 200 1 gm In Saline 1 100ml. bag @ 100 mls/hr IVPB ONCE ONE Rx#:[id number] Calcium Gluconate in NaCl 200 1 gm In Saline 1 100ml. bag @ 100 mls/hr IVPB Q1H [facility] Rx#:[id number] Lacosamide IV 150 mg In 100 Sodium Chloride 0.9% 50 ml @ 100 mls/hr IVPB BID [facility] Rx#:[id number] Norepinephrine 32 mg In 250 219.704 Sodium Chloride 0.9% 218 ml @ 0.5 MCG/KG/MIN 25. 547 mls/hr IV .Q9H48M [facility] Rx#:[id number] Vasopressin 60 unit In 153 Sodium Chloride 0.9% 150 ml @ 0.04 UNITS/MIN 6.12 mls/hr IV .Q24H [facility] Rx#: [id number] Other 120 Output: Gastric Drainage 400 Urine 275 505 425 Stool 800 400 Other: Voiding Method Indwelling Catheter Indwelling Catheter ABP, PAP, CO, CI - Last Documented Arterial Blood Pressure 108/44 - Exam Patient is an elderly female, who is comatose. Patient is not on any sedation. Sedation discontinued since 08/16/2022. Patient does not respond to painful stimuli or calling out loudly. Patient occasionally has twitching of the right shoulder region. Her pupils are equal, right pupil reacting more briskly than the left. Oculocephalics are absent, corneals absent. Reflexes are almost absent. Patient has significant peripheral edema. Patient is slightly cyanotic particularly in the fingertips and also in some toes. - Labs CBC & Chem 7: 08/25/22 05:18 08/25/22 05:18 Labs: Abnormal Lab Results - Last 24 Hours (Table) 08/23/22 08/23/22 08/23/22 Range/Units 16:32 20:36 20:43 WBC (3.8-10.6) k/uL RBC (3.80-5.40) m/uL Hgb (11.4-16.0) gm/dL Hct (34.0-46.0) % MCHC (31.0-37.0) g/dL RDW (11.5-15.5) % Neutrophils # (Manual) (1.3-7.7) k/uL Nucleated RBCs (0-0) /100 WBC ABG pH (7.35-7.45) Sodium (137-145) mmol/L Carbon Dioxide (22-30) mmol/L BUN (7-17) mg/dL Creatinine (0.52-1.04) mg/dL POC Glucose (mg/dL) 159 H 21 L 35 L (70-110) mg/dL Calcium (8.4-10.2) mg/dL Ionized Calcium Leesa (4.5-5.3) mg/dL AST (14-36) U/L Alkaline Phosphatase (38-126) U/L Ammonia (<30) umol/L Total Protein (6.3-8.2) g/dL Albumin (3.5-5.0) g/dL 08/23/22 08/24/22 08/24/22 Range/Units 20:48 04:52 04:52 WBC 17.2 H (3.8-10.6) k/uL RBC 2.72 L (3.80-5.40) m/uL Hgb 7.1 L (11.4-16.0) gm/dL Hct 23.2 L (34.0-46.0) % MCHC 30.8 L (31.0-37.0) g/dL RDW 17.6 H (11.5-15.5) % Neutrophils # (Manual) 14.70 H (1.3-7.7) k/uL Nucleated RBCs 2 H (0-0) /100 WBC ABG pH (7.35-7.45) Sodium (137-145) mmol/L Carbon Dioxide (22-30) mmol/L BUN (7-17) mg/dL Creatinine (0.52-1.04) mg/dL POC Glucose (mg/dL) 113 H (70-110) mg/dL Calcium (8.4-10.2) mg/dL Ionized Calcium [place]esa (4.5-5.3) mg/dL AST (14-36) U/L Alkaline Phosphatase (38-126) U/L Ammonia 150 H (<30) umol/L Total Protein (6.3-8.2) g/dL Albumin (3.5-5.0) g/dL 08/24/22 08/24/22 08/24/22 Range/Units 04:52 05:38 06:20 WBC (3.8-10.6) k/uL RBC (3.80-5.40) m/uL Hgb (11.4-16.0) gm/dL Hct (34.0-46.0) % MCHC (31.0-37.0) g/dL RDW (11.5-15.5) % Neutrophils # (Manual) (1.3-7.7) k/uL Nucleated RBCs (0-0) /100 WBC ABG pH 7.33 L (7.35-7.45) Sodium 135 L (137-145) mmol/L Carbon Dioxide 20 L (22-30) mmol/L BUN 83 H (7-17) mg/dL Creatinine 1.90 H (0.52-1.04) mg/dL POC Glucose (mg/dL) 55 L (70-110) mg/dL Calcium 5.1 L* (8.4-10.2) mg/dL Ionized Calcium [place]esa 3.3 L* (4.5-5.3) mg/dL AST 84 H (14-36) U/L Alkaline Phosphatase 166 H (38-126) U/L Ammonia (<30) umol/L Total Protein 4.3 L (6.3-8.2) g/dL Albumin 1.8 L (3.5-5.0) g/dL 08/24/22 Range/Units 09:33 WBC (3.8-10.6) k/uL RBC (3.80-5.40) m/uL Hgb (11.4-16.0) gm/dL Hct (34.0-46.0) % MCHC (31.0-37.0) g/dL RDW (11.5-15.5) % Neutrophils # (Manual) (1.3-7.7) k/uL Nucleated RBCs (0-0) /100 WBC ABG pH (7.35-7.45) Sodium (137-145) mmol/L Carbon Dioxide (22-30) mmol/L BUN (7-17) mg/dL Creatinine (0.52-1.04) mg/dL POC Glucose (mg/dL) 132 H (70-110) mg/dL Calcium (8.4-10.2) mg/dL Ionized Calcium [place] (4.5-5.3) mg/dL AST (14-36) U/L Alkaline Phosphatase (38-126) U/L Ammonia (<30) umol/L Total Protein (6.3-8.2) g/dL Albumin (3.5-5.0) g/dL Microbiology - Last 24 Hours (Table) 08/23/22 11:40 Blood Culture Gram Stain - Preliminary Blood 08/19/22 18:00 Stool Culture - Final Stool 08/23/22 11:40 Blood Culture - Final Blood Assessment and Plan Assessment: Altered mental status multifactorial as mentioned below. Patient primarily has encephalopathy. Also has some component of metabolic encephalopathy with worsening of the kidney function. Has been off sedation for 7 days. Abnormal prolonged 2.5 hours EEG, with evidence of runs of 1 Hz LPDs plus there was lateralized periodic discharges, sharp and slow and poly-sharp and slow waves over the left parietal region with spread more anteriorly. There are also some discharges semi-periodic LPDs over the right posterior quadrants. Probable perforated viscus with pneumoperitoneum. Septicemia, with leukocytosis and blood culture positive with enterococcus faecium. Blood cultures positive as of yesterday. White cells improving. Hepatic encephalopathy with initial elevated ammonia 214, repeat yesterday 210, and today is 150. Sepsis shock requiring pressor support and seems has urinary tract infection with urine culture positive for Enterococcus faecalis and Pseudomonas aeruginosa as well as systemic candidiasis Atrial fibrillation on eliquis (which has hx of afib) , currently on hold. Acute on chronic hypoxemic respiratory failure secondary selected diastolic congestive heart failure requiring intubation mechanical ventilation Acute on chronic kidney disease History of TIAs/stroke History of coronary artery disease with stent Hypertension Hyperlipidemia Diabetes mellitus Anemia Hypocalcemia Plan: * Patient underwent prolonged EEG today. It was an abnormal prolonged 2.5 hours EEG, with evidence of runs of 1 Hz LPDs plus there was lateralized periodic discharges, sharp and slow and poly-sharp and slow waves over the left parietal region with spread more anteriorly. There are also some discharges semi-periodic LPDs over the right posterior quadrants. Exact cause remains uncertain. CT was ordered yesterday, but patient was hemodynamically unstable and could not be obtained.. I discussed with patient's nurse, and will be performed today. * Patient already on high dose Vimpat 150 mg twice a day, Keppra 1000 mg twice a day (both of them adjusted for current renal functions). Patient cannot receive propofol because will tank the blood pressure. Patient is already septic with being on high dose multiple pressors. Cannot give Depakote becau se of hyperammonemia. Dilantin has risks with hepatic dysfunction. Patient will be continued on Versed drip. Currently on 5 mg per hour. I discussed with Dr. Hagen about possible transfer to [facility], who mentions that he has absolutely no beds available. For a patient, who has this condition, otherwise medically stable, burst suppression pattern for 48 hours is recommended. However patient has significant comorbid conditions as mentioned above. I discussed with primary team and recommended about transfer to higher level of care for continuous EEG monitoring. I discussed with patient's daughter on the phone in detail. Informed her about importance of transfer to higher level of care for continuous EEG monitoring. She mentioned that she will talk to her father about it. Apparently later Dr. Hartman also discussed with patient's daughter about transfer, and the family did not give any answer. * Continue Vimpat to 150 mg twice a day, and Keppra 1000 mg twice a day. Repeat prolonged EEG in the morning. * Continue Ativan 1-2 mg every 4 hours when necessary seizure. Patient also on Versed drip. * Repeat CT head performed today, which did not reveal any acute intracranial process. However there is possible bilateral mastoiditis and middle ear infections spread. Correlate clinically. Patchy perinasal sinus disease. I personally reviewed CT head, and there is evidence of air-fluid level in the left maxillary sinus. Agree with evidence of possible bilateral mastoiditis and fluid in the middle ear. I discussed with PCP about possibility of lumbar puncture. ID is also on board. Patient currently on Eraxis, Zerbaxa, daptomycin. * Repeat ammonia level 210. Ammonia 214 yesterday (normal <30). Patient on lactulose. IM/critical care to address. Repeat ammonia level in a.m. * CT abdomen revealed possibility of perforated viscus. Surgery on board. Patient was considered not a candidate for surgery because of hemodynamic instability. Surgery on board. * Patient is on high dose pressors * ID team is on board * Hypocalcemia can also be associated with seizures. Recommend appropriate treatment as per IM and critical care. * We'll defer the rest of medical management to primary and ICU team * The patient condition is very critical. Prognosis appears very guarded to poor at this time. * Plan discussed with the patient's daughter, primary team and patient's nurse. Time with Patient: Greater than 30
[2022-08-25] MEDS: ANIDULAFUNGIN 100 MG in SODIUM CHLORIDE 0.9% 100 ML IVPB SCH (10:22)
[2022-08-25] MEDS: LACTULOSE 20 GM/30 ML CUP PO SCH ×4 (10:32→22:31)
[2022-08-25] MEDS: polyethylene glycoL 3350 17 GM POWD.PACK PO SCH ×2 (10:32→20:58)
[2022-08-25] MEDS: DEXTROSE 5% IN WATER 1,000 ML with SODIUM BICARB (1 MEQ/ML) 150 ML IV SCH ×2 (10:42→22:47)
--- NOTE | 2022-08-25 10:48 | P.PN ---
Subjective Patient is seen in follow-up for acute kidney injury. Renal function stable. Urine output 30-40 mL per hour. Intubated. Currently on Levophed and vasopressin. On bicarb drip. Recent blood culture positive for enterococcus. CAT scan showed pneumoperitoneum. On amiodarone drip for A. fib. Has been receiving Ativan for seizure activity. Family present at bedside. Scheduled for trach and PEG today. Vital signs are stable. On vasopressor support. General: Resting in bed. HEENT: Intubated. LUNGS: Breath sounds decreased. HEART: Irregular rate and rhythm. ABDOMEN: Distention noted. EXTREMITITES: 2+ edema. Objective - Vital Signs Vital signs: Vital Signs Temp 98.6 F 08/25/22 08:00 Pulse 124 H 08/25/22 09:15 Resp 28 H 08/25/22 09:15 BP 99/52 08/19/22 16:39 Pulse Ox 97 08/25/22 09:15 FiO2 50 08/25/22 08:00 Intake & Output 08/24/22 08/25/22 08/25/22 18:59 06:59 18:59 Intake Total 2466.165 1930.75 817.024 Output Total 1210 1810 95 Balance 1256.165 120.75 722.024 Weight 137.1 kg 138.7 kg Intake: IV 1288 1279 574 0.9% @ KVO 140 240 40 Calcium Gluconate in NaCl 100 1 gm In Saline 1 100ml. bag @ 100 mls/hr IVPB Q1H [facility] Rx#:[id number] Ceftolozane/Tazobactam 0. 200 100 75 gm In Sodium Chloride 0.9% 100 ml @ 100 mls/hr IV Q8HR [facility] Rx#:[id number] Dextrose 5% in Water 1, 900 900 225 000 ml @ 75 mls/hr IV . [id number] [facility] with Sodium Bicarb (1 Meq/ml) 150 ml Rx#:[id number] Phenytoin Sodium Inj 1, 100 000 mg In Sodium Chloride 0.9% 100 ml @ 200 mls/hr IVPB ONCE [facility] Rx#: [id number] Potassium Chloride 20 meq 100 In Water For Injection 1 100ml.bag @ 50 mls/hr IVPB Q2H [facility] Rx#: [id number] Pressure Bag 48 39 9 Intake, IV Titration 1178.165 551.75 243.024 Amount Amiodarone 450 mg In 474.998 Dextrose 5% in Water 250 ml @ 1 MG/MIN 33.333 mls/ hr IV .Q7H30M [facility] Rx#: [id number] Anidulafungin 100 mg In 100 Sodium Chloride 0.9% 100 ml @ 84 mls/hr IVPB DAILY [facility] Rx#:[id number] Calcium Gluconate in NaCl 200 1 gm In Saline 1 100ml. bag @ 100 mls/hr IVPB Q1H [facility] Rx#:[id number] Lacosamide IV 150 mg In 100 50 Sodium Chloride 0.9% 50 ml @ 100 mls/hr IVPB BID [facility] Rx#:[id number] Midazolam HCl 50 mg In 23.167 41.75 28.917 Sodium Chloride 0.9% 40 ml @ 6 MG/HR 6 mls/hr IV .Q8H20M [facility] Rx#:[id number] Mvi, Adult No.4 with Vit 330 30 K 10 ml Trace (Conc-1Ml/ Dose) 1 ml Sodium Acetate 30 meq Potassium Chloride 20 meq Magnesium Sulfate gm 0.5 gm Calcium Gluconate 2 gm In Amino Acids 5 %/Dextrose 20 % 1,000 ml @ 30 mls/ hr IV .Q24H [facility] Rx#: [id number] Norepinephrine 32 mg In 250 184.107 Sodium Chloride 0.9% 218 ml @ 0.5 MCG/KG/MIN 25. 547 mls/hr IV .Q9H48M [facility] Rx#:[id number] Sodium Acetate 30 meq 30 30 Potassium Chloride 20 meq Magnesium Sulfate gm 0.5 gm Calcium Gluconate 1 gm In Amino Acids 5 %/ Dextrose 20 % 1,000 ml @ 65 mls/hr IV .BY DURATION [facility] Rx#:[id number] levETIRAcetam IV 1,000 mg 100 In Saline 1 100ml.bag @ 400 mls/hr IVPB Q12HR [facility] Rx#:[id number] Other 100 Output: Gastric Drainage 400 Urine 810 610 95 Stool 1200 Other: Voiding Method Indwelling Catheter Indwelling Catheter ABP, PAP, CO, CI - Last Documented Arterial Blood Pressure 99/47 - Labs CBC & Chem 7: 08/25/22 05:18 08/25/22 05:18 Labs: Abnormal Lab Results - Last 24 Hours (Table) 08/24/22 08/24/22 08/24/22 Range/Units 04:52 12:59 17:15 WBC (3.8-10.6) k/uL RBC (3.80-5.40) m/uL Hgb (11.4-16.0) gm/dL Hct (34.0-46.0) % MCHC (31.0-37.0) g/dL RDW (11.5-15.5) % Neutrophils # (Manual) (1.3-7.7) k/uL Lymphocytes # (Manual) (1.0-4.8) k/uL Nucleated RBCs (0-0) /100 WBC ABG pH (7.35-7.45) ABG HCO3 (21-25) mmol/L Sodium (137-145) mmol/L Potassium (3.5-5.1) mmol/L Carbon Dioxide (22-30) mmol/L BUN (7-17) mg/dL Creatinine (0.52-1.04) mg/dL Glucose (74-99) mg/dL POC Glucose (mg/dL) 143 H 125 H (70-110) mg/dL Calcium (8.4-10.2) mg/dL Ionized Calcium [place]esa (4.5-5.3) mg/dL Phosphorus (2.5-4.5) mg/dL AST (14-36) U/L Alkaline Phosphatase (38-126) U/L Total Protein (6.3-8.2) g/dL Albumin (3.5-5.0) g/dL Triglycerides 286.00 H (0.00-149.00) mg/dL 08/24/22 08/25/22 08/25/22 Range/Units 21:13 00:49 04:50 WBC (3.8-10.6) k/uL RBC (3.80-5.40) m/uL Hgb (11.4-16.0) gm/dL Hct (34.0-46.0) % MCHC (31.0-37.0) g/dL RDW (11.5-15.5) % Neutrophils # (Manual) (1.3-7.7) k/uL Lymphocytes # (Manual) (1.0-4.8) k/uL Nucleated RBCs (0-0) /100 WBC ABG pH 7.28 L (7.35-7.45) ABG HCO3 20 L (21-25) mmol/L Sodium (137-145) mmol/L Potassium (3.5-5.1) mmol/L Carbon Dioxide (22-30) mmol/L BUN (7-17) mg/dL Creatinine (0.52-1.04) mg/dL Glucose (74-99) mg/dL POC Glucose (mg/dL) 200 H 231 H (70-110) mg/dL Calcium (8.4-10.2) mg/dL Ionized Calcium [place] (4.5-5.3) mg/dL Phosphorus (2.5-4.5) mg/dL AST (14-36) U/L Alkaline Phosphatase (38-126) U/L Total Protein (6.3-8.2) g/dL Albumin (3.5-5.0) g/dL Triglycerides (0.00-149.00) mg/dL 08/25/22 08/25/22 08/25/22 Range/Units 04:57 05:18 05:18 WBC 21.7 H (3.8-10.6) k/uL RBC 2.83 L (3.80-5.40) m/uL Hgb 7.3 L (11.4-16.0) gm/dL Hct 24.3 L (34.0-46.0) % MCHC 30.0 L (31.0-37.0) g/dL RDW 17.8 H (11.5-15.5) % Neutrophils # (Manual) 20.80 H (1.3-7.7) k/uL Lymphocytes # (Manual) 0.87 L (1.0-4.8) k/uL Nucleated RBCs 1 H (0-0) /100 WBC ABG pH (7.35-7.45) ABG HCO3 (21-25) mmol/L Sodium 136 L (137-145) mmol/L Potassium 3.0 L (3.5-5.1) mmol/L Carbon Dioxide 20 L (22-30) mmol/L BUN 79 H (7-17) mg/dL Creatinine 1.87 H (0.52-1.04) mg/dL Glucose 208 H (74-99) mg/dL POC Glucose (mg/dL) 246 H (70-110) mg/dL Calcium 5.2 L* (8.4-10.2) mg/dL Ionized Calcium [place] 3.4 L* (4.5-5.3) mg/dL Phosphorus 7.2 H (2.5-4.5) mg/dL AST 78 H (14-36) U/L Alkaline Phosphatase 177 H (38-126) U/L Total Protein 4.2 L (6.3-8.2) g/dL Albumin 1.7 L (3.5-5.0) g/dL Triglycerides (0.00-149.00) mg/dL 08/25/22 Range/Units 08:38 WBC (3.8-10.6) k/uL RBC (3.80-5.40) m/uL Hgb (11.4-16.0) gm/dL Hct (34.0-46.0) % MCHC (31.0-37.0) g/dL RDW (11.5-15.5) % Neutrophils # (Manual) (1.3-7.7) k/uL Lymphocytes # (Manual) (1.0-4.8) k/uL Nucleated RBCs (0-0) /100 WBC ABG pH (7.35-7.45) ABG HCO3 (21-25) mmol/L Sodium (137-145) mmol/L Potassium (3.5-5.1) mmol/L Carbon Dioxide (22-30) mmol/L BUN (7-17) mg/dL Creatinine (0.52-1.04) mg/dL Glucose (74-99) mg/dL POC Glucose (mg/dL) 245 H (70-110) mg/dL Calcium (8.4-10.2) mg/dL Ionized Calcium [place] (4.5-5.3) mg/dL Phosphorus (2.5-4.5) mg/dL AST (14-36) U/L Alkaline Phosphatase (38-126) U/L Total Protein (6.3-8.2) g/dL Albumin (3.5-5.0) g/dL Triglycerides (0.00-149.00) mg/dL Microbiology - Last 24 Hours (Table) 08/23/22 11:40 Blood Culture Gram Stain - Preliminary Blood Blood Culture - Preliminary Enterococcus faecium 02/18/23 22:00 Blood Culture Gram Stain - Final Blood Blood Culture - Final Enterococcus faecium 08/19/22 18:00 Stool Culture - Final Stool 08/23/22 11:40 Blood Culture - Final Blood Assessment and Plan Plan: Assessment: 1. Acute kidney injury secondary to ATN secondary to septic shock. Baseline creatinine near 0.8 from June 2022 - peaked at 2.77 this admission - stable at 1.87 today. Urine output 40-50 mL an hour. No hydronephrosis noted on CAT scan. 2. Septic shock secondary to UTI, fungemia and bacteremia. CAT scan done in 08/20/2022 showed pneumoperitoneum. On antibiotics/antifungal and vasopressor support. 3. Metabolic acidosis secondary to acute kidney injury. On bicarb drip. 4. Hypokalemia from poor intake and diuresis. Also intracellular shifting from IV bicarb. Being replaced. 5. Acute hypoxic respiratory failure. 6. A. fib with RVR. On amiodarone drip. Cardiology following. 8. Hypernatremia from lack of oral water intake. Status post water flushes. Improved. 9. Hypocalcemia secondary to acute kidney injury. Ionized calcium is low. Replaced. Plan: Maintain bicarb drip. Status post IV albumin given 08/23/2021. Maintain IV Lasix 80 mg once daily. Calcium replaced. Potassium is being replaced. Wean FiO2 and vasopressors. Avoid nephrotoxins. Continue to monitor renal function and urine output. Continue to assess daily for need for renal replacement therapy. No urgency at this time. Patient remains hemodynamically unstable. Prognosis guarded. Scheduled for trach and PEG today. Discussed with family present at bedside.
[2022-08-25] MEDS: VASOPRESSIN 60 UNIT in SODIUM CHLORIDE 0.9% 150 ML IV SCH ×2 (11:25→22:54)
[2022-08-25] MEDS: DAPTOmycin 500 MG in SODIUM CHLORIDE 0.9% 50 ML IVPB SCH (11:27)
[2022-08-25 11:33] LABS: Glucose,Whole Blood 234 mg/dL (70-110)
[2022-08-25] MEDS: TAMSULOSIN 0.4 MG CAP.ER.24H PO SCH (11:36)
[2022-08-25] MEDS: ERGOCALCIFEROL 1,250 MCG (50,000 IU) CAPSULE PO SCH (11:36)
--- NOTE | 2022-08-25 11:37 | P.PN ---
Subjective Progress Note Date: 08/25/22 08/25/2022: Patient was seen for a follow-up. Patient's and patient's daughter were both present. Patient continues to be comatose. She has intermittent rhythmic twitching of the right shoulder. Patient is already on high dose Keppra, Vimpat adjusted to her renal functions, and Versed drip. Patient already has received Dilantin 1 g IV PB and she is still twitching in the right shoulder. Dilantin level came as 4.5. Patient will receive another loading dose of Dilantin 1 g. Target Dilantin level 12-20. Patient's toes are getting more dusky. Patient has developed some blisters, but that happened before she received Dilantin, therefore not related to Dilantin ALLERGY. P john has generalized anasarca. 08/24/2022: Patient was seen for a follow-up. Patient is undergoing EEG at this time. Patient continues to have PLEDS. Patient was given Ativan 2 mg without much improvement, then repeated at another 2 mg Ativan. Patient subsequently received Versed 5 mg IV push without improvement, started on Versed drip 5 mg per hour. Patient states on pressors with vasopressin and Levophed. Patient continues to be comatose. Occasional twitching of the right shoulder noticed. I had discussed case with Dr. Hagen yesterday after he reported abnormal prol onged EEG about transfer patient to [facility], but he mentioned that beds were not available. 08/23/2022: Patient was seen for a follow-up. Patient is intubated, not on any sedation. She is on full pressors with Levophed and vasopressin. Also on 3 antibiotics, anti-seizure medications including Keppra and Vimpat. Patient had sporadic seizure-like activity with facial twitching. No definite arm twitching noted. Episode lasted for about 30 minutes. At present there is no twitching noticeable. Patient's and grandchildren were present today. 08/22/2022: Patient was seen for a follow-up. Patient's daughter was also present today. Patient recently had temperature of 100.3. About an hour prior to spiking temperature, patient had some facial twitching, with jaw opening and closing, that lasted for half an hour. No upper extremity movement was noted at that time. Patient continues to be on Keppra 750 mg twice a day. Patient continues to be on high-dose pressors. Patient at present is no code, but full medical treatment. 08/21/2022: Patient initially seen by Dr. Edouard Peres. Please refer to his note for details. Patient is an 87-year-old female with altered mental status. Patient has septic encephalopathy. Patient had a seizure-like activity yesterday at 1:15 PM with head jerking and left arm jerking. Patient was given Ativan 4 mg, and the seizure-like stopped. Patient was given a loading dose of Keppra 1000 mg IV and then maintained on 500 mg twice a day. Patient had again seizure-like activity at 3 AM lasted for 45 minutes and then 5 AM and patient was given another katlyn ding dose of 500 mg Keppra. Nurse called me today at around 7:30 AM. It lasted for 20-30 minutes. Patient was again given Valium 4 mg in the seizure-like activity resolved. Patient was started on Vimpat 100 mg twice a day IV PB. EEG was performed today, which was abnormal sleep EEG due to background slowing of moderate degree. Some sharply contoured waves were seen in the left parietal region. No clear-cut epileptiform activity was seen. Objective - Vital Signs Vital signs: Vital Signs Temp 98.6 F 08/25/22 08:00 Pulse 120 H 08/25/22 11:10 Resp 28 H 08/25/22 09:15 BP 99/52 08/19/22 16:39 Pulse Ox 97 08/25/22 09:15 FiO2 50 08/25/22 10:54 Intake & Output 08/24/22 08/25/22 08/25/22 18:59 06:59 18:59 Intake Total 2466.165 1930.75 817.024 Output Total 1210 1810 95 Balance 1256.165 120.75 722.024 Weight 137.1 kg 138.7 kg 138.7 kg Intake: IV 1288 1279 574 0.9% @ KVO 140 240 40 Calcium Gluconate in NaCl 100 1 gm In Saline 1 100ml. bag @ 100 mls/hr IVPB Q1H [facility] Rx#:[id number] Ceftolozane/Tazobactam 0. 200 100 75 gm In Sodium Chloride 0.9% 100 ml @ 100 mls/hr IV Q8HR [facility] Rx#:[id number] Dextrose 5% in Water 1, 900 900 225 000 ml @ 75 mls/hr IV . [id number] [facility] with Sodium Bicarb (1 Meq/ml) 150 ml Rx#:[id number] Phenytoin Sodium Inj 1, 100 000 mg In Sodium Chloride 0.9% 100 ml @ 200 mls/hr IVPB [facility] Rx#: [id number] Potassium Chloride 20 meq 100 In Water For Injection 1 100ml.bag @ 50 mls/hr IVPB Q2H [facility] Rx#: [id number] Pressure Bag 48 39 9 Intake, IV Titration 1178.165 551.75 243.024 Amount Amiodarone 450 mg In 474.998 Dextrose 5% in Water 250 ml @ 1 MG/MIN 33.333 mls/ hr IV .Q7H30M [facility] Rx#: [id number] Anidulafungin 100 mg In 100 Sodium Chloride 0.9% 100 ml @ 84 mls/hr IVPB DAILY [facility] Rx#:[id number] Calcium Gluconate in NaCl 200 1 gm In Saline 1 100ml. bag @ 100 mls/hr IVPB Q1H [facility] Rx#:[id number] Lacosamide IV 150 mg In 100 50 Sodium Chloride 0.9% 50 ml @ 100 mls/hr IVPB BID [facility] Rx#:[id number] Midazolam HCl 50 mg In 23.167 41.75 28.917 Sodium Chloride 0.9% 40 ml @ 6 MG/HR 6 mls/hr IV .Q8H20M [facility] Rx#:[id number] Mvi, Adult No.4 with Vit 330 30 K 10 ml Trace (Conc-1Ml/ Dose) 1 ml Sodium Acetate 30 meq Potassium Chloride 20 meq Magnesium Sulfate gm 0.5 gm Calcium Gluconate 2 gm In Amino Acids 5 %/Dextrose 20 % 1,000 ml @ 30 mls/ hr IV .Q24H [facility] Rx#: [id number] Norepinephrine 32 mg In 250 184.107 Sodium Chloride 0.9% 218 ml @ 0.5 MCG/KG/MIN 25. 547 mls/hr IV .Q9H48M [facility] Rx#:[id number] Sodium Acetate 30 meq 30 30 Potassium Chloride 20 meq Magnesium Sulfate gm 0.5 gm Calcium Gluconate 1 gm In Amino Acids 5 %/ Dextrose 20 % 1,000 ml @ 65 mls/hr IV .BY DURATION [facility] Rx#:[id number] levETIRAcetam IV 1,000 mg 100 In Saline 1 100ml.bag @ 400 mls/hr IVPB Q12HR [facility] Rx#:[id number] Other 100 Output: Gastric Drainage 400 Urine 810 610 95 Stool 1200 Other: Voiding Method Indwelling Catheter Indwelling Catheter ABP, PAP, CO, CI - Last Documented Arterial Blood Pressure 99/47 - Exam Patient is an elderly female, who is comatose. Patient is not on any sedation. Sedation discontinued since 08/16/2022. Patient does not respond to painful stimuli or calling out loudly. Patient is having near constant right shoulder twitching. No twitching of the facial region. Her pupils are equal, right pupil reacting more briskly than the left. Oculocephalics are absent, corneals absent. Reflexes are almost absent. Patient has significant peripheral edema. Patient's fingers and toes are getting more dusky, cyanotic as compared to yesterday. - Labs CBC & Chem 7: 08/25/22 05:18 08/25/22 05:18 Labs: Abnormal Lab Results - Last 24 Hours (Table) 08/24/22 08/24/22 08/24/22 Range/Units 04:52 12:59 17:15 WBC (3.8-10.6) k/uL RBC (3.80-5.40) m/uL Hgb (11.4-16.0) gm/dL Hct (34.0-46.0) % MCHC (31.0-37.0) g/dL RDW (11.5-15.5) % Neutrophils # (Manual) (1.3-7.7) k/uL Lymphocytes # (Manual) (1.0-4.8) k/uL Nucleated RBCs (0-0) /100 WBC ABG pH (7.35-7.45) ABG HCO3 (21-25) mmol/L Sodium (137-145) mmol/L Potassium (3.5-5.1) mmol/L Carbon Dioxide (22-30) mmol/L BUN (7-17) mg/dL Creatinine (0.52-1.04) mg/dL Glucose (74-99) mg/dL POC Glucose (mg/dL) 143 H 125 H (70-110) mg/dL Calcium (8.4-10.2) mg/dL Ionized Calcium [place] (4.5-5.3) mg/dL Phosphorus (2.5-4.5) mg/dL AST (14-36) U/L Alkaline Phosphatase (38-126) U/L Total Protein (6.3-8.2) g/dL Albumin (3.5-5.0) g/dL Triglycerides 286.00 H (0.00-149.00) mg/dL 08/24/22 08/25/22 08/25/22 Range/Units 21:13 00:49 04:50 WBC (3.8-10.6) k/uL RBC (3.80-5.40) m/uL Hgb (11.4-16.0) gm/dL Hct (34.0-46.0) % MCHC (31.0-37.0) g/dL RDW (11.5-15.5) % Neutrophils # (Manual) (1.3-7.7) k/uL Lymphocytes # (Manual) (1.0-4.8) k/uL Nucleated RBCs (0-0) /100 WBC ABG pH 7.28 L (7.35-7.45) ABG HCO3 20 L (21-25) mmol/L Sodium (137-145) mmol/L Potassium (3.5-5.1) mmol/L Carbon Dioxide (22-30) mmol/L BUN (7-17) mg/dL Creatinine (0.52-1.04) mg/dL Glucose (74-99) mg/dL POC Glucose (mg/dL) 200 H 231 H (70-110) mg/dL Calcium (8.4-10.2) mg/dL Ionized Calcium [place] (4.5-5.3) mg/dL Phosphorus (2.5-4.5) mg/dL AST (14-36) U/L Alkaline Phosphatase (38-126) U/L Total Protein (6.3-8.2) g/dL Albumin (3.5-5.0) g/dL Triglycerides (0.00-149.00) mg/dL 08/25/22 08/25/22 08/25/22 Range/Units 04:57 05:18 05:18 WBC 21.7 H (3.8-10.6) k/uL RBC 2.83 L (3.80-5.40) m/uL Hgb 7.3 L (11.4-16.0) gm/dL Hct 24.3 L (34.0-46.0) % MCHC 30.0 L (31.0-37.0) g/dL RDW 17.8 H (11.5-15.5) % Neutrophils # (Manual) 20.80 H (1.3-7.7) k/uL Lymphocytes # (Manual) 0.87 L (1.0-4.8) k/uL Nucleated RBCs 1 H (0-0) /100 WBC ABG pH (7.35-7.45) ABG HCO3 (21-25) mmol/L Sodium 136 L (137-145) mmol/L Potassium 3.0 L (3.5-5.1) mmol/L Carbon Dioxide 20 L (22-30) mmol/L BUN 79 H (7-17) mg/dL Creatinine 1.87 H (0.52-1.04) mg/dL Glucose 208 H (74-99) mg/dL POC Glucose (mg/dL) 246 H (70-110) mg/dL Calcium 5.2 L* (8.4-10.2) mg/dL Ionized Calcium Leesa 3.4 L* (4.5-5.3) mg/dL Phosphorus 7.2 H (2.5-4.5) mg/dL AST 78 H (14-36) U/L Alkaline Phosphatase 177 H (38-126) U/L Total Protein 4.2 L (6.3-8.2) g/dL Albumin 1.7 L (3.5-5.0) g/dL Triglycerides (0.00-149.00) mg/dL 08/25/22 Range/Units 08:38 WBC (3.8-10.6) k/uL RBC (3.80-5.40) m/uL Hgb (11.4-16.0) gm/dL Hct (34.0-46.0) % MCHC (31.0-37.0) g/dL RDW (11.5-15.5) % Neutrophils # (Manual) (1.3-7.7) k/uL Lymphocytes # (Manual) (1.0-4.8) k/uL Nucleated RBCs (0-0) /100 WBC ABG pH (7.35-7.45) ABG HCO3 (21-25) mmol/L Sodium (137-145) mmol/L Potassium (3.5-5.1) mmol/L Carbon Dioxide (22-30) mmol/L BUN (7-17) mg/dL Creatinine (0.52-1.04) mg/dL Glucose (74-99) mg/dL POC Glucose (mg/dL) 245 H (70-110) mg/dL Calcium (8.4-10.2) mg/dL Ionized Calcium [place] (4.5-5.3) mg/dL Phosphorus (2.5-4.5) mg/dL AST (14-36) U/L Alkaline Phosphatase (38-126) U/L Total Protein (6.3-8.2) g/dL Albumin (3.5-5.0) g/dL Triglycerides (0.00-149.00) mg/dL Microbiology - Last 24 Hours (Table) 08/23/22 11:40 Blood Culture Gram Stain - Preliminary Blood Blood Culture - Preliminary Enterococcus faecium 08/19/22 22:00 Blood Culture Gram Stain - Final Blood Blood Culture - Final Enterococcus faecium 08/19/22 18:00 Stool Culture - Final Stool 08/23/22 11:40 Blood Culture - Final Blood Assessment and Plan Assessment: Altered mental status multifactorial as mentioned below. Patient primarily has septic encephalopathy. Also has some component of metabolic encephalopathy. Has been off sedation for 8 days. Abnormal prolonged 2.5 hours EEG, with evidence of runs of 1 Hz LPDs plus there was lateralized periodic discharges, sharp and slow and poly-sharp and slow waves over the left parietal region with spread more anteriorly. There are also some discharges semi-periodic LPDs over the right posterior quadrants. Probable perforated viscus with pneumoperitoneum. Septicemia, with leukocytosis and blood culture persistently positive with enterococcus faecium. Blood cultures positive as of 08/23/2022. White cells slightly worse today 21,000. Hepatic encephalopathy with initial elevated ammonia 214, repeat yesterday 210, and today is 150. Septic shock requiring high-dose pressors and seems has urinary tract infection with urine culture positive for Enterococcus faecalis and Pseudomonas aeruginosa as well as systemic candidiasis Atrial fibrillation on eliquis (which has hx of afib) , currently on hold. Acute on chronic hypoxemic respiratory failure secondary to diastolic congestive heart failure requiring intubation mechanical ventilation Acute on chronic kidney disease History of TIAs/stroke History of coronary artery disease with stent Hypertension Hyperlipidemia Diabetes mellitus Anemia Hypocalcemia Plan: * Patient continues to be in partial status. She continues to have rhythmic twitching of the right shoulder region. Patient already on multiple antiepileptic medications as mentioned below. Patient has received Dilantin 1 g IV PB loading dose without improvement. Patient's levels of Dilantin is 4.5. She will receive another loading dose of Dilantin 1 g IVPB. We will repeat EEG to see if it resolves a partial status. Patient's family has declined transfer to higher level of care. Patient herself is hemodynamically unstable and perhaps would not tolerate transfer either. Patient's seizures is of unclear cause. No mass lesions, CVA noted on the CT head. Intracranial infection cannot be ruled out. Discussed with infectious disease. Patient is already covered with antibiotics to cover meningitis. LP will not give additi onal information, as we already have a source with perforated viscus. Having positive blood cultures is also a relative communication for LP. * Prolonged 2.5 hours EEG on 08/24/2022 was abnormal with evidence of runs of 1 Hz LPDs plus there was lateralized periodic discharges, sharp and slow and po ly-sharp and slow waves over the left parietal region with spread more anteriorly. There are also some discharges semi-periodic LPDs over the right posterior quadrants. Exact cause remains uncertain. * Patient already on high dose Vimpat 150 mg twice a day, Keppra 1000 mg twice a day (both of them adjusted for current renal functions). Also on Versed 5 mg per hour. Cannot give Depakote because of hyperammonemia. Patient now started on Dilantin. I had discussed with Dr. Hagen yesterday about possible transfer to [facility], who mentions that he has absolutely no beds available. For a patient, who has this epileptiform EEG but otherwise medically stable, a medically induced burst suppression pattern for 48 hours is recommended. However patient has significant comorbid conditions as mentioned above. I discussed with primary team and recommended about transfer to higher level of care for continuous EEG monitoring. I discussed with patient's daughter and patient's about transfer, but they want to hold off on it, as patient is undergoing tracheostomy and PEG placement. I tried to inform the importance of controlling seizures, but they do not seem to understand the risks associated with uncontrolled seizures. Patient's daughter and patient's wants to wait for a few days before considering transfer, as they're more interested in patient undergoing tracheostomy and PEG placement. * Repeat EEG once she has completed the Dilantin infusion. * Continue Ativan 1-2 mg every 4 hours when necessary seizure. Patient also on Versed drip. * Repeat CT head 08/24/2022, which did not reveal any acute intracranial process. However there is possible bilateral mastoiditis and middle ear infections spread. Correlate clinically. Patchy paranasal sinus disease. I personally reviewed CT head, and there is evidence of air-fluid level in the left maxillary sinus. Agree with evidence of possible bilateral mastoiditis and fluid in the middle ear. I discussed with PCP about possibility of lumbar puncture. ID is also on board. Patient currently on Eraxis, Zerbaxa, daptomycin. Per ID, patient is already covered well for meningitis. * Patient's initial Ammonia was 214, then 210, then 150 as of yesterday (normal <30). Patient on lactulose. Repeat ammonia level today pending * CT abdomen revealed possibility of perforated viscus. Surgery on board. Patient was considered not a candidate for surgery because of hemodynamic instability. * Patient is on high dose pressors * Hypocalcemia can also be associated with seizures. Recommend appropriate treatment as per IM and critical care. * We'll defer the rest of medical management to primary and ICU team * The patient condition is very critical. Prognosis appears very guarded to poor at this time. * Plan discussed with the patient's family, ID, primary team and patient's nurse. Addendum 4 PM: Patient has received Dilantin 1 g loading dose 2. Patient continues to have low amplitude right shoulder twitching. Patient's is aware of continuous seizure activity, which also has detrimental prognosis. Patient's believes that the seizures are occurring from "lower back", as she had some back surgeries in the past. Patient just had returned from tracheostomy. Therefore repeat EEG was canceled today. Patient will be undergoing PEG placement in the morning. We will check Dilantin level. Increase Versed.
[2022-08-25] MEDS: FAT EMULSION 20% 250 ML in EMPTY BAG 1 BAG IV SCH (11:44)
--- NOTE | 2022-08-25 12:11 | P.PN ---
Subjective Progress Note Date: 08/25/22 Principal diagnosis: Sepsis/septic shock Patient is a 87-year-old female with multiple comorbidities presented to the hospital with a syncopal episode weakness subsequently hypotension, sepsis requiring transfer to the ICU and intubation on the vent. She patient did have a CT of abdominal pelvis completed on 08/20/2022 with evidence of pneumoperitoneum Gen. surgery discussed with the family currently being treated medically On today's evaluation that is 08/25/2022, the patient is afebrile this morning, the patient continues to be requiring max pressor support to maintain her blood pressure per the nursing staff, the patient FiO2 is slightly up to 50 %, no significant purulent secretions through the ET , patient did have NG to suction and did have a fecal management system for her diarrhea, Objective - Vital Signs Vital signs: Vital Signs Temp 98.6 F 08/25/22 08:00 Pulse 124 H 08/25/22 09:15 Resp 28 H 08/25/22 09:15 BP 99/52 08/19/22 16:39 Pulse Ox 97 08/25/22 09:15 FiO2 50 08/25/22 08:00 Intake & Output 08/24/22 08/25/22 08/25/22 18:59 06:59 18:59 Intake Total 2466.165 1930.75 817.024 Output Total 1210 1810 95 Balance 1256.165 120.75 722.024 Weight 137.1 kg 138.7 kg Intake: IV 1288 1279 574 0.9% @ KVO 140 240 40 Calcium Gluconate in NaCl 100 1 gm In Saline 1 100ml. bag @ 100 mls/hr IVPB Q1H [facility] Rx#:[id number] Ceftolozane/Tazobactam 0. 200 100 75 gm In Sodium Chloride 0.9% 100 ml @ 100 mls/hr IV Q8HR [facility] Rx#:[id number] Dextrose 5% in Water 1, 900 900 225 000 ml @ 75 mls/hr IV . [id number] [facility] with Sodium Bicarb (1 Meq/ml) 150 ml Rx#:[id number] Phenytoin Sodium Inj 1, 100 000 mg In Sodium Chloride 0.9% 100 ml @ 200 mls/hr IVPB ONCE [facility] Rx#: [id number] Potassium Chloride 20 meq 100 In Water For Injection 1 100ml.bag @ 50 mls/hr IVPB Q2H [facility] Rx#: [id number] Pressure Bag 48 39 9 Intake, IV Titration 1178.165 551.75 243.024 Amount Amiodarone 450 mg In 474.998 Dextrose 5% in Water 250 ml @ 1 MG/MIN 33.333 mls/ hr IV .Q7H30M [facility] Rx#: [id number] Anidulafungin 100 mg In 100 Sodium Chloride 0.9% 100 ml @ 84 mls/hr IVPB DAILY [facility] Rx#:[id number] Calcium Gluconate in NaCl 200 1 gm In Saline 1 100ml. bag @ 100 mls/hr IVPB Q1H [facility] Rx#:[id number] Lacosamide IV 150 mg In 100 50 Sodium Chloride 0.9% 50 ml @ 100 mls/hr IVPB BID [facility] Rx#:[id number] Midazolam HCl 50 mg In 23.167 41.75 28.917 Sodium Chloride 0.9% 40 ml @ 6 MG/HR 6 mls/hr IV .Q8H20M [facility] Rx#:[id number] Mvi, Adult No.4 with Vit 330 30 K 10 ml Trace (Conc-1Ml/ Dose) 1 ml Sodium Acetate 30 meq Potassium Chloride 20 meq Magnesium Sulfate gm 0.5 gm Calcium Gluconate 2 gm In Amino Acids 5 %/Dextrose 20 % 1,000 ml @ 30 mls/ hr IV .Q24H [facility] Rx#: [id number] Norepinephrine 32 mg In 250 184.107 Sodium Chloride 0.9% 218 ml @ 0.5 MCG/KG/MIN 25. 547 mls/hr IV .Q9H48M [facility] Rx#:[id number] Sodium Acetate 30 meq 30 30 Potassium Chloride 20 meq Magnesium Sulfate gm 0.5 gm Calcium Gluconate 1 gm In Amino Acids 5 %/ Dextrose 20 % 1,000 ml @ 65 mls/hr IV .BY DURATION [facility] Rx#:[id number] levETIRAcetam IV 1,000 mg 100 In Saline 1 100ml.bag @ 400 mls/hr IVPB Q12HR [facility] Rx#:[id number] Other 100 Output: Gastric Drainage 400 Urine 810 610 95 Stool 1200 Other: Voiding Method Indwelling Catheter Indwelling Catheter ABP, PAP, CO, CI - Last Documented Arterial Blood Pressure 99/47 - Exam GENERAL DESCRIPTION: An elderly female intubated on the vent RESPIRATORY SYSTEM: Unlabored breathing , decreased breath sounds at bases HEART: S1 S2 regular rate and rhythm , ABDOMEN: Soft , abdominal distention EXTREMITIES: Lower extremity swelling no redness - Labs CBC & Chem 7: 08/25/22 05:18 08/25/22 05:18 Labs: Abnormal Lab Results - Last 24 Hours (Table) 08/24/22 08/24/22 08/24/22 Range/Units 04:52 12:59 17:15 WBC (3.8-10.6) k/uL RBC (3.80-5.40) m/uL Hgb (11.4-16.0) gm/dL Hct (34.0-46.0) % MCHC (31.0-37.0) g/dL RDW (11.5-15.5) % Neutrophils # (Manual) (1.3-7.7) k/uL Lymphocytes # (Manual) (1.0-4.8) k/uL Nucleated RBCs (0-0) /100 WBC ABG pH (7.35-7.45) ABG HCO3 (21-25) mmol/L Sodium (137-145) mmol/L Potassium (3.5-5.1) mmol/L Carbon Dioxide (22-30) mmol/L BUN (7-17) mg/dL Creatinine (0.52-1.04) mg/dL Glucose (74-99) mg/dL POC Glucose (mg/dL) 143 H 125 H (70-110) mg/dL Calcium (8.4-10.2) mg/dL Ionized Calcium [place]esa (4.5-5.3) mg/dL Phosphorus (2.5-4.5) mg/dL AST (14-36) U/L Alkaline Phosphatase (38-126) U/L Total Protein (6.3-8.2) g/dL Albumin (3.5-5.0) g/dL Triglycerides 286.00 H (0.00-149.00) mg/dL 08/24/22 08/25/22 08/25/22 Range/Units 21:13 00:49 04:50 WBC (3.8-10.6) k/uL RBC (3.80-5.40) m/uL Hgb (11.4-16.0) gm/dL Hct (34.0-46.0) % MCHC (31.0-37.0) g/dL RDW (11.5-15.5) % Neutrophils # (Manual) (1.3-7.7) k/uL Lymphocytes # (Manual) (1.0-4.8) k/uL Nucleated RBCs (0-0) /100 WBC ABG pH 7.28 L (7.35-7.45) ABG HCO3 20 L (21-25) mmol/L Sodium (137-145) mmol/L Potassium (3.5-5.1) mmol/L Carbon Dioxide (22-30) mmol/L BUN (7-17) mg/dL Creatinine (0.52-1.04) mg/dL Glucose (74-99) mg/dL POC Glucose (mg/dL) 200 H 231 H (70-110) mg/dL Calcium (8.4-10.2) mg/dL Ionized Calcium [place] (4.5-5.3) mg/dL Phosphorus (2.5-4.5) mg/dL AST (14-36) U/L Alkaline Phosphatase (38-126) U/L Total Protein (6.3-8.2) g/dL Albumin (3.5-5.0) g/dL Triglycerides (0.00-149.00) mg/dL 08/25/22 08/25/22 08/25/22 Range/Units 04:57 05:18 05:18 WBC 21.7 H (3.8-10.6) k/uL RBC 2.83 L (3.80-5.40) m/uL Hgb 7.3 L (11.4-16.0) gm/dL Hct 24.3 L (34.0-46.0) % MCHC 30.0 L (31.0-37.0) g/dL RDW 17.8 H (11.5-15.5) % Neutrophils # (Manual) 20.80 H (1.3-7.7) k/uL Lymphocytes # (Manual) 0.87 L (1.0-4.8) k/uL Nucleated RBCs 1 H (0-0) /100 WBC ABG pH (7.35-7.45) ABG HCO3 (21-25) mmol/L Sodium 136 L (137-145) mmol/L Potassium 3.0 L (3.5-5.1) mmol/L Carbon Dioxide 20 L (22-30) mmol/L BUN 79 H (7-17) mg/dL Creatinine 1.87 H (0.52-1.04) mg/dL Glucose 208 H (74-99) mg/dL POC Glucose (mg/dL) 246 H (70-110) mg/dL Calcium 5.2 L* (8.4-10.2) mg/dL Ionized Calcium [place] 3.4 L* (4.5-5.3) mg/dL Phosphorus 7.2 H (2.5-4.5) mg/dL AST 78 H (14-36) U/L Alkaline Phosphatase 177 H (38-126) U/L Total Protein 4.2 L (6.3-8.2) g/dL Albumin 1.7 L (3.5-5.0) g/dL Triglycerides (0.00-149.00) mg/dL 08/25/22 Range/Units 08:38 WBC (3.8-10.6) k/uL RBC (3.80-5.40) m/uL Hgb (11.4-16.0) gm/dL Hct (34.0-46.0) % MCHC (31.0-37.0) g/dL RDW (11.5-15.5) % Neutrophils # (Manual) (1.3-7.7) k/uL Lymphocytes # (Manual) (1.0-4.8) k/uL Nucleated RBCs (0-0) /100 WBC ABG pH (7.35-7.45) ABG HCO3 (21-25) mmol/L Sodium (137-145) mmol/L Potassium (3.5-5.1) mmol/L Carbon Dioxide (22-30) mmol/L BUN (7-17) mg/dL Creatinine (0.52-1.04) mg/dL Glucose (74-99) mg/dL POC Glucose (mg/dL) 245 H (70-110) mg/dL Calcium (8.4-10.2) mg/dL Ionized Calcium [place] (4.5-5.3) mg/dL Phosphorus (2.5-4.5) mg/dL AST (14-36) U/L Alkaline Phosphatase (38-126) U/L Total Protein (6.3-8.2) g/dL Albumin (3.5-5.0) g/dL Triglycerides (0.00-149.00) mg/dL Microbiology - Last 24 Hours (Table) 08/23/22 11:40 Blood Culture Gram Stain - Preliminary Blood Blood Culture - Preliminary Enterococcus faecium 08/19/22 22:00 Blood Culture Gram Stain - Final Blood Blood Culture - Final Enterococcus faecium 08/19/22 18:00 Stool Culture - Final Stool 08/23/22 11:40 Blood Culture - Final Blood Assessment and Plan (1) Sepsis Current Visit: Yes Status: Acute Code(s): A41.9 - SEPSIS, UNSPECIFIED ORGANISM SNOMED Code(s): 87802488 Plan: 1patient was in the hospital with sepsis and septic shock initially concern for multidrug-resistant Pseudomonas UTI, patient also have a candidemia secondary to possible abdominal source and now with a VRE bacteremia source likely abdominal 2patient did have evidence of colonic perforation and peritonitis being managed medically as the patient considered to be high risk for any surgical procedure 3patient did have persistent VRE bacteremia and could be related to the multiple lines , patient will benefit from removal of those lines to control her bacteremia, patient also now growing MRSA in the sputum we will go ahead and discontinue daptomycin started the patient on Zyvox that should cover for both possible MRSA pneumonia and a VRE bacteremia Overall prognosis remains to be very guarded and hospice oriented care needs to be considered Daughter and at the bedside and they have multiple questions and concerns were answered in Layman terms Time with Patient: Greater than 30
[2022-08-25] MEDS: LACOSAMIDE IV 150 MG in SODIUM CHLORIDE 0.9% 50 ML IVPB SCH ×2 (12:16→22:49)
[2022-08-25] MEDS: AMIODARONE 450 MG in DEXTROSE 5% IN WATER 250 ML IV SCH ×6 (12:30→22:11)
[2022-08-25] MEDS ORDERED: ROCURONIUM 10 MG/ML (5 ML VIAL) IV ONE (12:50)
[2022-08-25] MEDS ORDERED: PROPOFOL 10 MG/ML 20 ML VIAL IV ONE (12:50)
[2022-08-25] MEDS ORDERED: fentaNYL (PF) 50 MCG/ML 2 ML AMP ONE (12:50)
[2022-08-25] MEDS: levETIRAcetam IV 1,000 MG in SALINE 1 100ML.BAG IVPB SCH ×2 (12:53→22:28)
--- NOTE | 2022-08-25 13:12 | P.PN ---
Subjective Progress Note Date: 08/25/22 Principal diagnosis: Acute on chronic hypoxic respiratory failure secondary to acute diastolic congestive heart failure, and septic shock. With abdominal sepsis and bowel perforation. 08/20/2022, I'm seeing the patient for a follow-up. Since yesterday, the patient has taken a turn to the worse. As of yesterday, the patient started having episodes of fever with a T-max of 103.1. At the same time, the patient's blood pressure was getting more soft and the patient was becoming more hypotensive in the urine output dropped considerably. As such, the patient had to be placed on a higher dose of pressors. The patient was given a total of 2 L of IV fluids. Vancomycin was also added to the regimen as the patient is taking currently a combination of Zerbaxa and Eraxis. On today's evaluation, the patient is still off sedation. The patient is on a mechanical ventilator on assist control mode of mechanical ventilation rate of 28 with a tidal volume of 400 and a PEEP of 5 and FiO2 of 40%. The chest x-ray shows limited bibasilar pulmonary infiltrates. ET tube is in a good location. No signs of any consolidation or pulmonary edema. The blood gas shows a pH of 7.2 with a pCO2 of 33 and a pO2 of 76. As such, the patient has become progressively more acidotic. Hemodynamically, the patient has become more hypotensive and the patient is currently on a combination of vasopressin physiologic dose and a norepinephrine had to be brought up to 0.2 mcg/kg/m. Urine output is extremely low at this point in time. The white cell count has come up to 26.6 from 19.9 a nd the hemoglobin is at 8.7. Noted the patient was given units of packed RBC for a hemoglobin of 6.9 yesterday and hemoglobin is at 8.7 today. The patient has become also acidotic. Urine is at 67 with a creatinine of 1.4. Serum bicarb is at 17 and this is a non-anion gap metabolic acidosis. Sodium is at 141 with a potassium level of 4.7. LFTs are normal. The patient is receiving TPN through a midline in the left upper extremity at the rate of 68 mL an hour. She also has a triple-lumen catheter in the left subclavian. The patient is in a positive fluid balance. The patient is still febrile. The patient is stooling. The laxatives have been discontinued. She is currently has a fecal management system in Place and stool was also sent for C. diff.. The patient is unresponsive to any verbal or painful stimulation at this point in time and she's been off sedation for the past 48 hours. His obvious component of metabolic encephalopathy secondary to ovulation comorbidities. She remains on amiodarone drip at 1 mg/m. She remains in atrial fibrillation. She is on anticoagulation with Eliquis 5 mg by mouth twice a day. Reevaluated today on 08/21/2022, patient remains on the ventilator, intubated mechanically ventilated, on assist control rate 28, volume 400 FiO2 40% PEEP of 5. ABG showed a pO2 of 82 pCO2 34 pH of 7.29, patient was placed on bicarb drip earlier by nephrology. She is maximized on norepinephrine at 0.5 mcg/kg/m she is also on amiodarone 1 mg/m vasopressin at 0.[address] of the abdomen yesterday showed bowel perforation and pneumoperitoneum of blood is positive for enterococcus. Patient is atrial fibrillation with RVR. Family today is at bedside, and had a long discussion with the and the daughter, explained to them that her condition is basically extremely poor, and the patient will not make it considering her new finding of abdominal sepsis. They were made aware yesterday by the surgeon about her bowel perforation, the surgeon and the family felt that she is extremely high surgical risk, hence no surgery was done for her abdominal sepsis and bowel perforation. In the meantime the patient is maximized on pressors she is also on antibiotics, her WBC scan is 17.8 hemoglobin is 8.2 bicarb is 16 BUN is 76 creatinine 1.73. The primary care physician Dr. Hartman talk to the about her condition and he was able to change her CODE STATUS to DO NOT RESUSCITATE CODE STATUS. However the family is still not agreeable to consider comfort care measures. I even suggested stopping the presses and down the line consider comfort care but not yet at this point. Family does not seem to be very agreeable. Patient is on good course of antibiotics, which is also on antifungal therapy. Also on bronchodilators. Being followed by infectious disease and now she is on daptomycin, patient is also on Eraxis, and zerbaxa Patient was reevaluated today on 08/22/22, admitted ICU intubated mechanically ventilated. She is maximized on pressors, she is on assist control rate of 28th of volume 400 FiO2 40% PEEP of 5 ABG showed a pO2 of 65 pCO2 36 pH of 7.31. Patient is on 0.5 g ventricular per minute of norepinephrine 0.04 units per minute of vasopressin remains on bicarb drip, remains on amiodarone 1 mg/m and her normal saline at 100 mL per hour. WBC count is 16.5 hemoglobin is 7.8. Sick metabolic profile is normal renal profile is abnormal with BUN of 83 creatinine 1.79 and remains on antibiotics as per infectious disease on the case. Chest x-ray showed bibasilar atelectasis and consolidations. And small tiny right-sided pleural effusion endotracheal tube and orogastric tube are in proper positions Reevaluated today on patient remains in the ICU, she is intubated and mechanically ventilated. Patient is on assist control rate of 28, tidal volume 400 FiO2 50% PEEP of 5 ABG showed a pO2 of 90 pCO2 39 pH of 7.31. Patient is still maximized on pressors including norepinephrine at 0.5 mcg/kg/m vasopressin at 0.04 units per minute still receiving bicarb 3 A in 1 L of D5W at 75 mL per hour remains on amiodarone at 1 mg/m IV fluid at KVO heart rate is 110 to 130. 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 The peak and today's 15.3 hemoglobin is 7.5. Renal profile is abnormal with BUN of 83 creati nine 2.13. Ammonia level is 210. Not much of a change overall in the last 24 hours, patient remains very critically ill. And I believe her condition is mostly futile. is reluctant to consider comfort care measures on this patient. reevaluated today on 08/24/2022, patient remains in the ICU, remains intubated and mechanically ventilated, she is on assist control rate of 28 tidal volume 400 FiO2 50% PEEP of 5. ABG showed a pO2 of 84 pCO2 of 39 pH of 7.33. Patient remains maximized on pressors, she is on norepinephrine at 0.5 mcg/kg/m vasopressin 0.04 units per minute she is also on amiodarone 1 mg/m, still on sodium bicarb 3 A in 1 L of D5W running at 70 mL per hour. Patient is being considered now for tracheostomy and PEG tube placement, although I strongly believe that the patient's condition is futile. Her blood cultures are now positive for Enterococcus faecium, sputum cultures are positive for MRSA. I'm not surprised that her rate blood cultures are positive considering the patient has significantly profound abdominal sepsis and bowel perforation that being treated medically and not surgically.even if we change the lines on this patient, that would get reinfected since the patient has ongoing abdominal sepsis and possibly abdominal abscesses,hence I'm extremely reluctant to change her lines at this point when there is ongoing abdominal sepsis.patient is rece iving antibiotics, I have strongly recommended comfort care measures on this patient, but the seems to be reluctant to consider such recommendation, and he seems to be agreeable to proceed with tracheostomy and PEG tube placement which is again the extreme at this pointnonetheless the patient has been intubated now for almost 2 weeks. Reevaluated today on 08/21/2022, patient remains in the ICU, intubated and mechanically ventilated, he is on assist control rate of 28th of volume 400 FiO2 50% PEEP of 5 ABG showed a pO2 of 91 pCO2 42 pH of 7.28 patient is scheduled to undergo tracheostomy and PEG tube placement today, hence no changes were made in her present ventilator settings. Patient is still maximized on pressors including norepinephrine at 0.5 mcg/kg/m vasopressin at 0.04 units per minute she is also on amiodarone 1 mg/m TPN at 50 mL/h. Sodium bicarb 3 A in D5W at 75 mL per hour she is also on Versed 6 mg per hour. Chest x-ray shows worsening in her bilateral pneumonia. WBC count is getting worse today 21.7 hemoglobin is 7.3, basic metabolic profile showed slightly low potassium of 3.0, BUN is 79 creatinine 1.87, basically unchanged in the last couple of days. Serum albumin is 1.7. Ionized calcium is 5.2, patient received calcium earlier today Objective - Vital Signs Vital signs: Vital Signs Temp 98.4 F 08/25/22 12:00 Pulse 131 H 08/25/22 12:15 Resp 28 H 08/25/22 12:15 BP 99/52 08/19/22 16:39 Pulse Ox 99 08/25/22 12:15 FiO2 50 08/25/22 12:00 Intake & Output 08/24/22 08/25/22 08/25/22 18:59 06:59 18:59 Intake Total 2466.165 2083.75 1551.053 Output Total 1210 1810 275 Balance 1256.165 273.75 1276.053 Weight 137.1 kg 138.7 kg 138.7 kg Intake: IV 1288 1279 1258 0.9% @ KVO 140 240 40 Anidulafungin 200 mg In 200 Sodium Chloride 0.9% 200 ml @ 84 mls/hr IVPB ONCE ONE Rx#:[id number] Calcium Gluconate in NaCl 100 1 gm In Saline 1 100ml. bag @ 100 mls/hr IVPB Q1H [facility] Rx#:[id number] Ceftolozane/Tazobactam 0. 200 100 100 75 gm In Sodium Chloride 0.9% 100 ml @ 100 mls/hr IV Q8HR [facility] Rx#:[id number] DAPTOmycin 500 mg In 50 Sodium Chloride 0.9% 50 ml @ 100 mls/hr IVPB Q48H [facility] Rx#:[id number] Dextrose 5% in Water 1, 900 900 450 000 ml @ 75 mls/hr IV . [id number] [facility] with Sodium Bicarb (1 Meq/ml) 150 ml Rx#:[id number] Lacosamide IV 150 mg In 100 Sodium Chloride 0.9% 50 ml @ 100 mls/hr IVPB BID [facility] Rx#:[id number] Phenytoin Sodium Inj 1, 100 000 mg In Sodium Chloride 0.9% 100 ml @ 200 mls/hr IVPB ONCE STA Rx#: [id number] Potassium Chloride 20 meq 100 In Water For Injection 1 100ml.bag @ 50 mls/hr IVPB Q2H [facility] Rx#: [id number] Pressure Bag 48 39 18 Intake, IV Titration 1178.165 704.75 293.053 Amount Amiodarone 450 mg In 474.998 Dextrose 5% in Water 250 ml @ 1 MG/MIN 33.333 mls/ hr IV .Q7H30M [facility] Rx#: [id number] Anidulafungin 100 mg In 100 Sodium Chloride 0.9% 100 ml @ 84 mls/hr IVPB DAILY [facility] Rx#:[id number] Calcium Gluconate in NaCl 200 1 gm In Saline 1 100ml. bag @ 100 mls/hr IVPB Q1H [facility] Rx#:[id number] Lacosamide IV 150 mg In 100 50 Sodium Chloride 0.9% 50 ml @ 100 mls/hr IVPB BID [facility] Rx#:[id number] Midazolam HCl 50 mg In 23.167 41.75 28.917 Sodium Chloride 0.9% 40 ml @ 6 MG/HR 6 mls/hr IV .Q8H20M [facility] Rx#:[id number] Mvi, Adult No.4 with Vit 330 30 K 10 ml Trace (Conc-1Ml/ Dose) 1 ml Sodium Acetate 30 meq Potassium Chloride 20 meq Magnesium Sulfate gm 0.5 gm Calcium Gluconate 2 gm In Amino Acids 5 %/Dextrose 20 % 1,000 ml @ 30 mls/ hr IV .Q24H [facility] Rx#: [id number] Norepinephrine 32 mg In 250 234.136 Sodium Chloride 0.9% 218 ml @ 0.5 MCG/KG/MIN 25. 547 mls/hr IV .Q9H48M [facility] Rx#:[id number] Sodium Acetate 30 meq 30 30 Potassium Chloride 20 meq Magnesium Sulfate gm 0.5 gm Calcium Gluconate 1 gm In Amino Acids 5 %/ Dextrose 20 % 1,000 ml @ 65 mls/hr IV .BY DURATION [facility] Rx#:[id number] Vasopressin 60 unit In 153 Sodium Chloride 0.9% 150 ml @ 0.04 UNITS/MIN 6.12 mls/hr IV .Q24H [facility] Rx#: [id number] levETIRAcetam IV 1,000 mg 100 In Saline 1 100ml.bag @ 400 mls/hr IVPB Q12HR [facility] Rx#:[id number] Other 100 Output: Gastric Drainage 400 Urine 810 610 275 Stool 1200 Other: Voiding Method Indwelling Catheter Indwelling Catheter Indwelling Catheter ABP, PAP, CO, CI - Last Documented Arterial Blood Pressure 121/52 - Exam GENERAL EXAM: Intubated, sedated, 87-year-old morbidly obese female, sedated, not in distress intubated and mechanically ventilated HEAD: Normocephalic. Atraumatic. EYES: Sluggish reaction of pupils, equal size. NOSE: Nasogastric tube secured in place. Clear with pink turbinates. THROAT: Oral endotracheal tube in place. NECK: No masses, no JVD. CHEST: No chest wall deformity. LUNGS: Equal air entry with crackles in the bilateral bases. CVS: S1 and S2 normal with no audible murmur, irregular rhythm. ABDOMEN: Obese soft nontender, normal bowel sounds SKIN: No rashes CENTRAL NERVOUS SYSTEM: Sedated,Could not assess. EXTREMITIES: 3+ peripheral edema. Changes of chronic venous stasis. No clubbing - Labs CBC & Chem 7: 08/25/22 05:18 08/25/22 05:18 Labs: Abnormal Lab Results - Last 24 Hours (Table) 08/24/22 08/24/22 08/24/22 Range/Units 04:52 17:15 21:13 WBC (3.8-10.6) k/uL RBC (3.80-5.40) m/uL Hgb (11.4-16.0) gm/dL Hct (34.0-46.0) % MCHC (31.0-37.0) g/dL RDW (11.5-15.5) % Neutrophils # (Manual) (1.3-7.7) k/uL Lymphocytes # (Manual) (1.0-4.8) k/uL Nucleated RBCs (0-0) /100 WBC ABG pH (7.35-7.45) ABG HCO3 (21-25) mmol/L Sodium (137-145) mmol/L Potassium (3.5-5.1) mmol/L Carbon Dioxide (22-30) mmol/L BUN (7-17) mg/dL Creatinine (0.52-1.04) mg/dL Glucose (74-99) mg/dL POC Glucose (mg/dL) 125 H 200 H (70-110) mg/dL Calcium (8.4-10.2) mg/dL Ionized Calcium [place] (4.5-5.3) mg/dL Phosphorus (2.5-4.5) mg/dL AST (14-36) U/L Alkaline Phosphatase (38-126) U/L Total Protein (6.3-8.2) g/dL Albumin (3.5-5.0) g/dL Triglycerides 286.00 H (0.00-149.00) mg/dL 08/25/22 08/25/2208/25/23 Range/Units 00:49 04:50 04:57 WBC (3.8-10.6) k/uL RBC (3.80-5.40) m/uL Hgb (11.4-16.0) gm/dL Hct (34.0-46.0) % MCHC (31.0-37.0) g/dL RDW (11.5-15.5) % Neutrophils # (Manual) (1.3-7.7) k/uL Lymphocytes # (Manual) (1.0-4.8) k/uL Nucleated RBCs (0-0) /100 WBC ABG pH 7.28 L (7.35-7.45) ABG HCO3 20 L (21-25) mmol/L Sodium (137-145) mmol/L Potassium (3.5-5.1) mmol/L Carbon Dioxide (22-30) mmol/L BUN (7-17) mg/dL Creatinine (0.52-1.04) mg/dL Glucose (74-99) mg/dL POC Glucose (mg/dL) 231 H 246 H (70-110) mg/dL Calcium (8.4-10.2) mg/dL Ionized Calcium [place] (4.5-5.3) mg/dL Phosphorus (2.5-4.5) mg/dL AST (14-36) U/L Alkaline Phosphatase (38-126) U/L Total Protein (6.3-8.2) g/dL Albumin (3.5-5.0) g/dL Triglycerides (0.00-149.00) mg/dL 08/25/22 08/25/22 08/25/22 Range/Units 05:18 05:18 08:38 WBC 21.7 H (3.8-10.6) k/uL RBC 2.83 L (3.80-5.40) m/uL Hgb 7.3 L (11.4-16.0) gm/dL Hct 24.3 L (34.0-46.0) % MCHC 30.0 L (31.0-37.0) g/dL RDW 17.8 H (11.5-15.5) % Neutrophils # (Manual) 20.80 H (1.3-7.7) k/uL Lymphocytes # (Manual) 0.87 L (1.0-4.8) k/uL Nucleated RBCs 1 H (0-0) /100 WBC ABG pH (7.35-7.45) ABG HCO3 (21-25) mmol/L Sodium 136 L (137-145) mmol/L Potassium 3.0 L (3.5-5.1) mmol/L Carbon Dioxide 20 L (22-30) mmol/L BUN 79 H (7-17) mg/dL Creatinine 1.87 H (0.52-1.04) mg/dL Glucose 208 H (74-99) mg/dL POC Glucose (mg/dL) 245 H (70-110) mg/dL Calcium 5.2 L* (8.4-10.2) mg/dL Ionized Calcium [place] 3.4 L* (4.5-5.3) mg/dL Phosphorus 7.2 H (2.5-4.5) mg/dL AST 78 H (14-36) U/L Alkaline Phosphatase 177 H (38-126) U/L Total Protein 4.2 L (6.3-8.2) g/dL Albumin 1.7 L (3.5-5.0) g/dL Triglycerides (0.00-149.00) mg/dL 08/25/22 Range/Units 11:32 WBC (3.8-10.6) k/uL RBC (3.80-5.40) m/uL Hgb (11.4-16.0) gm/dL Hct (34.0-46.0) % MCHC (31.0-37.0) g/dL RDW (11.5-15.5) % Neutrophils # (Manual) (1.3-7.7) k/uL Lymphocytes # (Manual) (1.0-4.8) k/uL Nucleated RBCs (0-0) /100 WBC ABG pH (7.35-7.45) ABG HCO3 (21-25) mmol/L Sodium (137-145) mmol/L Potassium (3.5-5.1) mmol/L Carbon Dioxide (22-30) mmol/L BUN (7-17) mg/dL Creatinine (0.52-1.04) mg/dL Glucose (74-99) mg/dL POC Glucose (mg/dL) 234 H (70-110) mg/dL Calcium (8.4-10.2) mg/dL Ionized Calcium [place] (4.5-5.3) mg/dL Phosphorus (2.5-4.5) mg/dL AST (14-36) U/L Alkaline Phosphatase (38-126) U/L Total Protein (6.3-8.2) g/dL Albumin (3.5-5.0) g/dL Triglycerides (0.00-149.00) mg/dL Microbiology - Last 24 Hours (Table) 08/23/22 11:40 Blood Culture Gram Stain - Preliminary Blood Blood Culture - Preliminary Enterococcus faecium 08/19/22 22:00 Blood Culture Gram Stain - Final Blood Blood Culture - Final Enterococcus faecium 08/19/22 18:00 Stool Culture - Final Stool 08/23/22 11:40 Blood Culture - Final Blood Assessment and Plan Assessment: Impression: Acute on chronic hypoxic respiratory failure Acute on chronic diastolic congestive heart failure Abdominal sepsis and septic shock Anion gap metabolic acidosis, improving but not resolved. Multifactorial. Urinary tract infection secondary to Enterococcus faecalis and pseudomonas aeruginosa bacteremia secondary to enterococcus faecium Systemic candidiasis with positive cultures for Ange. Atrial fibrillation with RVR requiring amiodarone drip Acute on chronic kidney disease Recent history of COVID-19 infection History of valvular heart disease with aortic stenosis, patient is an excellent set up for endocarditis Acute on chronic anemia History of underlying COPD History of diastolic congestive heart failure Recommendation: Updated the family including her and her daughter at bedside about her condition and explained to them that she is not showing any signs of improvement, actually she is a bit worse. Family is still insisting on continua tion of treatment but CODE STATUS remains DO NOT RESUSCITATE. Hence I consulted general surgery and the patient is undergoing tracheostomy and PEG tube placement today. Family seems to be agreeable to this. Continue ventilatory support Continue hemodynamic support however would not recommend higher doses of norepinephrine and vasopressin, patient is maximized. Continue present supportive care measures Continue antibiotics as per infectious disease on the case. Continue GI and DVT prophylaxis continue lactulose Patient is critically ill Condition is futile We will continue to follow Critical care time is over 30 minutes Time with Patient: Greater than 30
--- NOTE | 2022-08-25 13:29 | P.PN ---
Subjective Progress Note Date: 08/25/22 H&P Date: 08/09/22 Chief Complaint: Shortness of breath,Altered mental statConstipation, syncope, hyperglycemia This is a pleasant 87-year-old female with past medical history of CAD, [place], stent placement, aortic stenosis ,chronic hypoxic respiratory failure,on 2 L nasal cannula ,Covid 06/22,COPD, former nicotine dependence, obstructive sleep apnea ,CVA/TIA, diabetes mellitus, hypertension, hyperlipidemia, hypothyroidism, recurrent UTIs,CKD III, urinary retention, anemia, bilateral peripheral neuropathy, gait dysfunction,utilizing walker, falls, morbid obesity-BMI 39.9 and multiple other medical issues brought in via ambulance, on BiPAP to the ER for change in level of consciousness, syncope, nausea, vomiting, hyperglycemia, constipation-on Baxter, shortness of breath, recently discharged from [facility] subacute rehab on 08/06/2022. Information being obtained from chart and daughter at bedside. Daughter reports they are unsure of her last bowel movement, possibly , 08/03. [facility] documented large bowel movement on 08/04 and 08/05. Reports yesterday blood sugars were running high in the 400s, patient developed nausea and vomiting, change in sensorium, passed out while on the toilet. Reports patient "coughs all the time, but has COPD", no knowledge of fevers, denies chills. Denies chest pain, palpitations, positive shortness of breath. Developed hypotension in the ER in addition to emesis, received fluid bolus .Chest x-ray reported right basilar infiltrate with persistent small right effusion, no overt failure. EKG reported sinus rhythm, troponin negative 1. KUB reported marked gastric distention, additional small bowel loops dilated, possibly retained debris within the rectum and sigmoid colon. 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 NG tube placed in the ER with 1200 MLS bilious output reported overnight. D-dimer elevated 4.73, CT angio chest reported no evidence of pulmonary embolism,more consolidation changes in the right lung base, rule out aspiration. ProBNP 426. UA reported many WBC clumps, 165 WBCs, large leukocytes, negative nitrates, culture pending. Afebrile, on admission temperature 96.7, currently 98.8. WBC 14.3. lactic acid 3.5, repeat level pending. Hemoglobin 10.2, platelets 4:15, a I's within normal limits, BUN 40, creatinine 1.5. BiPAP weaned off, currently requiring 6 L nasal cannula O2 to maintain O2 sats in the low 90s. 08/10/22 Continued to decline throughout the night requiring ICU admission, maintained on vasopressin, Levophed and bicarb drips. Received fluid boluses throughout the night. Lactic acid decreased to 2.1. Low urine output on Lasix IV push. BUN 81, creatinine 2.68. Hyperkalemic, received calcium, insulin, D50, sodium bicarbonate. Chest x-ray reporting stable bilateral lower lobe infiltrate and small effusion. Afebrile, T-max 99.7. Continues on Levaquin, WBC normalized today. Cefepime added to antibiotic regimen today. Preliminary Urine cultures reporting group D enterococcus 50-100,000 colonies and gram-negative bacilli 10 and 49,000 colonies. 07/03 Blood cultures reporting GNB. Hemoglobin 8.2, platelets 311. 08/11/2022 Vent dependent, FiO2 60%/+5 of PEEP. Chest x-ray reports stable, no change in bibasilar opacities, pleural effusion unchanged. Continues on the Levophed and vasopressin drips. Febrile to the night, T-max 102.4, WBC increased to 12.2. Lactic acid trended up during the night, received fluid boluses, currently at 3.2. Developed atrial fibrillation with RVR, bolused with amiodarone and currently on amiodarone drip. Urine culture reporting enterococcus faecalis and Pseudomonas aeruginosa.Films reviewed by general surgery, reporting sigmoid volvulus. Recommending conservative management. BUN 79, creatinine 2.74. Hyperglycemic. Hemoglobin 8.6, platelets 349. Anticoagulation remains on hold. 08/21/2022 remains vent dependent, FiO2 50%/+5 of PEEP. Maintained on high doses of levophed, vasopressin. Amiodarone and bicarb drips continue. Receiving IV albumin to be followed by Lasix. Worsening renal function. Staff reports no urine output 24 hours. Bicarb 16, BUN 76, creatinine 1.73. Repeat CT of abdomen and pelvis completed yesterday, reporting moderate volume pneumo peritoneum, suspected perforation of distal colonic bowel, extensive distal bowel pneumatosis. Surgery discussed findings with family, high risk for surgical intervention. Family decided against surgical intervention,but to continue with nonsurgical care. T-max 100.6. Maintained on Zerbaxa, Eraxis, daptomycin .Seizure-like activity reported yesterday afternoon, placed on Keppra, reoccurred in the replenishment associate hours 2. Brain CT reported no acute intracranial process .EEG completed, results pending. 08/22/2022 vent dependent, 40% FiO2, +5 of PEEP. Staff reports patient desats quickly with turning. Chest x-ray reporting bibasilar atelectasis, consolidation, minimally increased, possible tiny right basilar pleural effusion. Continues on high doses of pressors, digits dusky. Maintained on bicarb drip. Telemetry atrial fibrillation, fast ventricular rate on amiodarone drip. Remains on antibiotics as per infectious disease.BUN 83, creatinine 1.79. T-max 102, WBC decreased, 16.5 08/23/2022 FiO2 50%/+5 of PEEP. Chest x-ray reported no significant change .Continues on pressor support. Maintained on amiodarone drip, heart rates currently in the 1 teens to 120s. Continues on daptomycin, Zerbexa and Eraxis.T-max 100.9, WBC 15.3. BUN 83, creatinine 2.13. WBC decreased to 15.3. Receiving IV albumin, Albumin currently 1.6. Ionized calcium 3.4, receiving supplementation. 08/24/2022 continues in A. fib, heart rates 110 to 130s on amiodarone drip. Seizure activity yesterday reported with facial twitching lasting approximately half an hour EEG performed-reported abnormal 2-1/2 hour EEG suggesting epileptiform focus involving midline occipital parietal region. Vimpat and Keppra doses increased. Continue to have seizure activity today, right-sided face twitching, trembling of arm reported, repeat EEG in progress. Versed drip initiated. Brain Ct pending. Maximized on both norepi and vasopressin. Digits dusky, declining comfort care at this time. Continues on bicarb drip. Remains vent dependent on FiO2 50%/+5 of PEEP. Now trach and PEG are being considered. 08/25/2022 maximized on pressors nor appendectomy and vasopressin. Mechanical ventilator-dependent, FiO2 50%/+5 of PEEP. Chest x-ray reporting worsening bibasilar consolidation ,bilateral pneumonia. Family meeting via phone this morning with Dr. Hartman PCP, regarding poor prognosis, futile condition. Scheduled for tracheostomy and PEG-consent pending. Continues on amiodarone, bicarb drips. TPN. Continues to have seizure activity, on Versed drip, Dilantin added to med regimen. Afebrile, worsening WBC, 21.7, potassium 3, receiving supplementation. BUN 79, creatinine 1.87. Ionized calcium 3.4, supplemented. Objective - Vital Signs Vital signs: Vital Signs Temp 98.3 F 08/24/22 20:00 Pulse 118 H 08/25/22 07:58 Resp 28 H 08/25/22 07:00 BP 99/52 08/19/22 16:39 Pulse Ox 95 08/25/22 07:00 FiO2 50 08/25/22 07:19 Intake & Output 08/24/22 08/25/22 08/25/22 18:59 06:59 18:59 Intake Total 2466.165 1930.75 312.107 Output Total 1210 1810 35 Balance 1256.165 120.75 277.107 Weight 137.1 kg 138.7 kg Intake: IV 1288 1279 98 0.9% @ KVO 140 240 20 Ceftolozane/Tazobactam 0. 200 100 75 gm In Sodium Chloride 0.9% 100 ml @ 100 mls/hr IV Q8HR COUNT INCLUDES THE [facility] Rx#:[id number] Dextrose 5% in Water 1, 900 900 75 000 ml @ 75 mls/hr IV . [id number] [facility] with Sodium Bicarb (1 Meq/ml) 150 ml Rx#:[id number] Pressure Bag 48 39 3 Intake, IV Titration 1178.165 551.75 214.107 Amount Amiodarone 450 mg In 474.998 Dextrose 5% in Water 250 ml @ 1 MG/MIN 33.333 mls/ hr IV .Q7H30M COUNT INCLUDES THE [facility] Rx#: [id number] Anidulafungin 100 mg In 100 Sodium Chloride 0.9% 100 ml @ 84 mls/hr IVPB DAILY COUNT INCLUDES THE [facility] Rx#:[id number] Calcium Gluconate in NaCl 200 1 gm In Saline 1 100ml. bag @ 100 mls/hr IVPB Q1H [facility] Rx#:[id number] Lacosamide IV 150 mg In 100 50 Sodium Chloride 0.9% 50 ml @ 100 mls/hr IVPB BID COUNT INCLUDES THE [facility] Rx#:[id number] Midazolam HCl 50 mg In 23.167 41.75 Sodium Chloride 0.9% 40 ml @ 6 MG/HR 6 mls/hr IV .Q8H20M COUNT INCLUDES THE [facility] Rx#:[id number] Mvi, Adult No.4 with Vit 330 30 K 10 ml Trace (Conc-1Ml/ Dose) 1 ml Sodium Acetate 30 meq Potassium Chloride 20 meq Magnesium Sulfate gm 0.5 gm Calcium Gluconate 2 gm In Amino Acids 5 %/Dextrose 20 % 1,000 ml @ 30 mls/ hr IV .Q24H [facility] Rx#: [id number] Norepinephrine 32 mg In 250 184.107 Sodium Chloride 0.9% 218 ml @ 0.5 MCG/KG/MIN 25. 547 mls/hr IV .Q9H48M [facility] Rx#:[id number] Sodium Acetate 30 meq 30 30 Potassium Chloride 20 meq Magnesium Sulfate gm 0.5 gm Calcium Gluconate 1 gm In Amino Acids 5 %/ Dextrose 20 % 1,000 ml @ 65 mls/hr IV .BY DURATION COUNT INCLUDES THE [facility] Rx#:[id number] levETIRAcetam IV 1,000 mg 100 In Saline 1 100ml.bag @ 400 mls/hr IVPB Q12HR COUNT INCLUDES THE [facility] Rx#:[id number] Other 100 Output: Gastric Drainage 400 Urine 810 610 35 Stool 1200 Other: Voiding Method Indwelling Catheter Indwelling Catheter ABP, PAP, CO, CI - Last Documented Arterial Blood Pressure 115/50 - Exam GENERAL EXAM: on mechanical ventilation. HEENT: Normocephalic. Sluggish pupils,NG present NECK: soft, unable to assess for JVD. LUNGS: Equal air entry with bilateral bases diminished, fine crackles in bilateral bases. CV: S1 and S2 normal with no audible murmur, irregular rhythm. Systolic murmur. ABDOMEN:Distended SKIN: No rashes. CENTRAL NERVOUS SYSTEM: Unable to assess, comotose on mechanical ventilation EXTREMITIES: Positive peripheral edema, dusky digits. - Labs CBC & Chem 7: 08/25/22 05:18 08/25/22 05:18 Labs: Abnormal Lab Results - Last 24 Hours (Table) 08/24/22 08/24/22 08/24/22 Range/Units 04:52 09:33 12:59 WBC (3.8-10.6) k/uL RBC (3.80-5.40) m/uL Hgb (11.4-16.0) gm/dL Hct (34.0-46.0) % MCHC (31.0-37.0) g/dL RDW (11.5-15.5) % Neutrophils # (Manual) (1.3-7.7) k/uL Lymphocytes # (Manual) (1.0-4.8) k/uL Nucleated RBCs (0-0) /100 WBC ABG pH (7.35-7.45) ABG HCO3 (21-25) mmol/L Sodium (137-145) mmol/L Potassium (3.5-5.1) mmol/L Carbon Dioxide (22-30) mmol/L BUN (7-17) mg/dL Creatinine (0.52-1.04) mg/dL Glucose (74-99) mg/dL POC Glucose (mg/dL) 132 H 143 H (70-110) mg/dL Calcium (8.4-10.2) mg/dL Ionized Calcium Leesa (4.5-5.3) mg/dL Phosphorus (2.5-4.5) mg/dL AST (14-36) U/L Alkaline Phosphatase (38-126) U/L Total Protein (6.3-8.2) g/dL Albumin (3.5-5.0) g/dL Triglycerides 286.00 H (0.00-149.00) mg/dL 08/24/22 08/24/22 08/25/22 Range/Units 17:15 21:13 00:49 WBC (3.8-10.6) k/uL RBC (3.80-5.40) m/uL Hgb (11.4-16.0) gm/dL Hct (34.0-46.0) % MCHC (31.0-37.0) g/dL RDW (11.5-15.5) % Neutrophils # (Manual) (1.3-7.7) k/uL Lymphocytes # (Manual) (1.0-4.8) k/uL Nucleated RBCs (0-0) /100 WBC ABG pH (7.35-7.45) ABG HCO3 (21-25) mmol/L Sodium (137-145) mmol/L Potassium (3.5-5.1) mmol/L Carbon Dioxide (22-30) mmol/L BUN (7-17) mg/dL Creatinine (0.52-1.04) mg/dL Glucose (74-99) mg/dL POC Glucose (mg/dL) 125 H 200 H 231 H (70-110) mg/dL Calcium (8.4-10.2) mg/dL Ionized Calcium Leesa (4.5-5.3) mg/dL Phosphorus (2.5-4.5) mg/dL AST (14-36) U/L Alkaline Phosphatase (38-126) U/L Total Protein (6.3-8.2) g/dL Albumin (3.5-5.0) g/dL Triglycerides (0.00-149.00) mg/dL 08/25/22 08/25/22 08/25/22 Range/Units 04:50 04:57 05:18 WBC (3.8-10.6) k/uL RBC (3.80-5.40) m/uL Hgb (11.4-16.0) gm/dL Hct (34.0-46.0) % MCHC (31.0-37.0) g/dL RDW (11.5-15.5) % Neutrophils # (Manual) (1.3-7.7) k/uL Lymphocytes # (Manual) (1.0-4.8) k/uL Nucleated RBCs (0-0) /100 WBC ABG pH 7.28 L (7.35-7.45) ABG HCO3 20 L (21-25) mmol/L Sodium 136 L (137-145) mmol/L Potassium 3.0 L (3.5-5.1) mmol/L Carbon Dioxide 20 L (22-30) mmol/L BUN 79 H (7-17) mg/dL Creatinine 1.87 H (0.52-1.04) mg/dL Glucose 208 H (74-99) mg/dL POC Glucose (mg/dL) 246 H (70-110) mg/dL Calcium 5.2 L* (8.4-10.2) mg/dL Ionized Calcium Leesa 3.4 L* (4.5-5.3) mg/dL Phosphorus 7.2 H (2.5-4.5) mg/dL AST 78 H (14-36) U/L Alkaline Phosphatase 177 H (38-126) U/L Total Protein 4.2 L (6.3-8.2) g/dL Albumin 1.7 L (3.5-5.0) g/dL Triglycerides (0.00-149.00) mg/dL 08/25/22 Range/Units 05:18 WBC 21.7 H (3.8-10.6) k/uL RBC 2.83 L (3.80-5.40) m/uL Hgb 7.3 L (11.4-16.0) gm/dL Hct 24.3 L (34.0-46.0) % MCHC 30.0 L (31.0-37.0) g/dL RDW 17.8 H (11.5-15.5) % Neutrophils # (Manual) 20.80 H (1.3-7.7) k/uL Lymphocytes # (Manual) 0.87 L (1.0-4.8) k/uL Nucleated RBCs 1 H (0-0) /100 WBC ABG pH (7.35-7.45) ABG HCO3 (21-25) mmol/L Sodium (137-145) mmol/L Potassium (3.5-5.1) mmol/L Carbon Dioxide (22-30) mmol/L BUN (7-17) mg/dL Creatinine (0.52-1.04) mg/dL Glucose (74-99) mg/dL POC Glucose (mg/dL) (70-110) mg/dL Calcium (8.4-10.2) mg/dL Ionized Calcium Leesa (4.5-5.3) mg/dL Phosphorus (2.5-4.5) mg/dL AST (14-36) U/L Alkaline Phosphatase (38-126) U/L Total Protein (6.3-8.2) g/dL Albumin (3.5-5.0) g/dL Triglycerides (0.00-149.00) mg/dL Microbiology - Last 24 Hours (Table) 08/23/22 11:40 Blood Culture Gram Stain - Preliminary Blood Blood Culture - Preliminary Enterococcus faecium 08/19/22 22:00 Blood Culture Gram Stain - Final Blood Blood Culture - Final Enterococcus faecium 08/19/22 18:00 Stool Culture - Final Stool 08/23/22 11:40 Blood Culture - Final Blood Assessment and Plan Assessment: Sepsis, septic shock secondary to acute enterococcus faecalis and Pseudomonas aeruginosa UTI, with acute VRE bacteremia ,abdominal sepsis. Systemic candidiasis with positive cultures for Ange Hypotension secondary to the above, pressor dependent Seizure activity, workup in progress, neurology following Fevers Acute on chronic hypoxic respiratory failure, ventilator dependent, secondary to all the above Hyperammonium Chronic changes of the right lower lobe and small right pleural effusion as per pulmonary Acute on CKD III, secondary to ATN related to the above Atrial fibrillation with RVR, on amiodarone drip In a patient with history of chronic atrial fibrillation Metabolic acidosis, on bicarb drip Abdominal pain, constipation, last bowel movement reported 08/05.Films reviewed by general surgery, reporting sigmoid volvulus. Continued clinical worsening;Probable perforated viscus with pneumoperitoneum reported per CT on 08/20/2022. Leukocytosis Diabetes mellitus, family reports hyperglycemic at home, controlled IP, A1c 6. Recent COVID-19 infection, 06/22 COPD Valvular heart disease, moderate aortic stenosis, preserved LV function Chronic anemia Generalized weakness, gait dysfunction, multiple falls recently reported, recently discharged from [facility] subacute rehab. 08/06/22. History of CVA, TIA History of Hypertension Hyperlipidemia Hypothyroidism Morbid obesity No code, no CPR, no reintubation Plan: Continue on current medication regime ,monitoring and symptomatic treatment. ICU management as per broadcast engineer. Antibiotics as per infectious disease. Repeat EEG today as per neurology. Prognosis poor, /family declining comfort care at this time. Trach and PEG pending. Questions and concerns addressed. The impression and plan of care has been dictated as directed. : I performed a history and examination of this patient, discussed the same with the dictator. I agree with the dictator's note ,documented as a scribe. Any additional findings or plans will be noted.
--- NOTE | 2022-08-25 13:48 | PN ---
PROGRESS NOTE SUBJECTIVE: An 87-year-old lady, who is admitted to ICU with obstructed bowel and subsequently developed bowel perforation that we are following for atrial fibrillation. She remains in atrial fibrillation with poorly controlled ventricular rate, intubated on vent without any significant change in her condition from yesterday on maximal dose of pressors. OBJECTIVE: GENERAL: On exam, intubated on vent. VITAL SIGNS: Heart rate is around 110 beats per minute. ABDOMEN: Appears extended. EXTREMITIES: Exam of the extremities reveals 1+ edema. The patient is currently on Lasix with antibiotics, intravenous amiodarone. LABORATORY DATA: Labs show that the hemoglobin is 7.3, white cell count is 21, BUN is 79, creatinine is 1.8. ASSESSMENT: Persistent atrial fibrillation with poorly controlled ventricular rate, perforated bowel, severe hypotension. PLAN: Continue current measures. Prognosis is poor. MMMELIA / ANITAN: [id number] /
--- NOTE | 2022-08-25 13:53 | P.OP ---
Date of Procedure: 08/25/22 Preoperative Diagnosis: Respiratory failure Postoperative Diagnosis: Respiratory failure Procedure(s) Performed: Tracheostomy Anesthesia: LAINEY Surgeon: Vinny Head Estimated Blood Loss (ml): 10 Pathology: none sent Condition: stable Disposition: PACU Description of Procedure: The patient's placed on the bed in the supine position. The patient received general anesthesia. The neck was prepped and draped in usual sterile fashion. A standard transverse skin incision was made approximately 2 cm above the sternal notch. Using electrocautery the subcutaneous tissues were divided. The platysma was divided. A Wheatlander retractor was placed in the wound. Next the strap muscles were divided in the midline. Another weatlander retractor was placed the wound. The pretracheal fat was then divided with left cautery. The trachea was exposed. At this point the FOOT AND ANKLE SURGEON advance the and the tracheal tube into the right mainstem bronchus. The balloon was inflated. A tracheotomy was then performed between the second and third tracheal rings. The perivascular tissues a gracilis the trachea. The endotracheal tube was brought back under direct vision. And then the #8 Portex tracheostomy tube was placed into the trachea. End-tidal CO2 was confirmed. The patient had been connected to the ventilator. The patient was ventilated satisfactory. The skin incision site was then closed with 3-0 nylon after the retractors were withdrawn. An umbilical tie was used to secure the tracheostomy tube. Patient tolerated procedure well.
[2022-08-25] MEDS ORDERED: 1: MVI, ADULT NO.4 WITH VIT K 10 ML, TRACE (CONC-1ML/DOSE) 1 ML, SODIUM ACETATE 30 MEQ, IV SCH ×7 (15:00)
[2022-08-25] MEDS: LINEZOLID 600 MG in DEXTROSE/WATER 1 300ML.BAG IVPB SCH (15:07)
[2022-08-25 16:09] LABS: Glucose,Whole Blood 201 mg/dL (70-110)
[2022-08-25] MEDS: 1: MVI, ADULT NO.4 WITH VIT K 10 ML, TRACE (CONC-1ML/DOSE) 1 ML, SODIUM ACETATE 30 MEQ, IV SCH ×7 (18:46)
[2022-08-25 19:17] LABS: ABG Base Excess -8.2 mmol/L; ABG HCO3 20 mmol/L (21-25); ABG Oxygen Saturation 99.1 % (94-97); ABG PCO2 48 mmHg (35-45); ABG PH 7.22 (7.35-7.45); ABG PO2 305 mmHg (83-108); ABG TCO2 21 mmol/L (19-24); Allen Test Performed? Yes
[2022-08-25] MEDS ORDERED: SODIUM BICARB 8.4% 50 ML SYR (1 MEQ/ML) IV STA (19:35)
[2022-08-25 21:05] LABS: Glucose,Whole Blood 324 mg/dL (70-110)
[2022-08-26 00:03] LABS: Glucose,Whole Blood 415 mg/dL (70-110)
[2022-08-26] MEDS: INSULIN ASPART (NovoLOG) 100 UNIT/ML VIAL SQ SCH ×6 (00:14→21:53)
[2022-08-26] MEDS ORDERED: PHENYTOIN SODIUM INJ 200 MG in SODIUM CHLORIDE 0.9% 36 ML IVPB SCH (00:30)
[2022-08-26] MEDS: DEXTROSE 5% IN WATER 1,000 ML with SODIUM BICARB (1 MEQ/ML) 150 ML IV SCH ×3 (01:03→13:10)
[2022-08-26] MEDS: MIDAZOLAM HCL 50 MG in SODIUM CHLORIDE 0.9% 40 ML IV SCH ×4 (01:07→21:37)
[2022-08-26] MEDS ORDERED: INSULIN ASPART (NovoLOG) 100 UNIT/ML VIAL SQ ONE ×3 (01:24→17:17)
[2022-08-26] MEDS: LINEZOLID 600 MG in DEXTROSE/WATER 1 300ML.BAG IVPB SCH ×2 (01:55→15:29)
[2022-08-26] MEDS: CEFTOLOZANE/TAZOBACTAM 0.75 GM in SODIUM CHLORIDE 0.9% 100 ML IV SCH ×3 (02:53→16:54)
[2022-08-26 04:36] LABS: Glucose,Whole Blood 424 mg/dL (70-110)
[2022-08-26] MEDS: NOREPINEPHRINE 32 MG in SODIUM CHLORIDE 0.9% 218 ML IV SCH ×3 (04:43→23:00)
[2022-08-26 06:08] LABS: Anisocytosis Slight; HCT 24.4 % (34.0-46.0); HGB 7.2 gm/dL (11.4-16.0); Hypochromasia Marked; MCH 25.7 pg (25.0-35.0); MCHC 29.4 g/dL (31.0-37.0); MCV 87.4 fL (80.0-100.0); Mean Platelet Volume 9.6; Platelet Count 326 k/uL (150-450); Poikilocytosis Slight; RBC 2.79 m/uL (3.80-5.40)
[2022-08-26 06:10] LABS: ABG Base Excess -6.4 mmol/L; ABG HCO3 21 mmol/L (21-25); ABG PCO2 47 mmHg (35-45); ABG PH 7.26 (7.35-7.45); ABG PO2 84 mmHg (83-108); ABG TCO2 22 mmol/L (19-24); Allen Test Performed? Yes
[2022-08-26 06:18] LABS: Ionized Calcium 3.7 mg/dL (4.5-5.3)
[2022-08-26 06:25] LABS: ALT 21 U/L (4-34); AST 57 U/L (14-36); Albumin 1.6 g/dL (3.5-5.0); Alkaline Phosphatase 179 U/L (38-126); Anion Gap 16 mmol/L; Blood Urea Nitrogen 76 mg/dL (7-17); Carbon Dioxide 19 mmol/L (22-30); Chloride 97 mmol/L (98-107); Glucose 376 mg/dL (74-99); Magnesium 1.6 mg/dL (1.6-2.3); Phenytoin (Dilantin) <3.0 ug/mL; Phosphorus 6.3 mg/dL (2.5-4.5); Sodium 132 mmol/L (137-145); Total Bilirubin 0.3 mg/dL (0.2-1.3); Total Protein 4.1 g/dL (6.3-8.2)
[2022-08-26 06:28] LABS: African American GFR (CKD) 30 (>60 ml/min/1.73 sqM); Non-African American GFR(CKD) 26 (>60 ml/min/1.73 sqM)
[2022-08-26 06:43] LABS: Band Neutrophils % 2 %; Lymphocytes # (M) 1.49 k/uL (1.0-4.8); Monocytes # (M) 0.21 k/uL (0-1.0); Neutrophils % (M) 92 %; Nucleated Red Blood Cells 5 /100 WBC (0-0); Polychromasia Present; Total Cells Counted 200; WBC 21.3 k/uL (3.8-10.6)
[2022-08-26 06:44] LABS: Calcium 5.6 mg/dL (8.4-10.2)
[2022-08-26] MEDS: INSULIN DETEMIR (LEVEMIR) 100 UNIT/ML SYR SQ SCH (07:04)
--- NOTE | 2022-08-26 07:39 | XR ---
EXAMINATION TYPE: XR chest 1V portable DATE OF EXAM: 08/26/2022 6:04 AM COMPARISON: Chest radiograph from one day prior. 08/20/2022 TECHNIQUE: XR chest 1V portable Portable AP radiograph of the chest. CLINICAL INDICATION:Female, 87 years old with history of assess lungs; FINDINGS: Lungs/Pleura: There is no evidence of focal consolidation, or pneumothorax. Blunting of the right co stophrenic angle with associated atelectasis. Pulmonary vascularity: Unremarkable. Heart/mediastinum: Cardiomediastinal silhouette is unremarkable. Musculoskeletal: No acute osseous pathology. There is fixation hardware in the lower cervical spine. Other findings: None Lines/Tubes: Tracheostomy cannula tip projecting over the trachea. Nasogastric tube with its distal tip and side-port projecting under the diaphragm. Left internal jugular central venous catheter with distal tip at the superior vena cava brachiocephal ic vein junction. IMPRESSION: Stable support lines and tubes with bibasilar atelectasis with small right pleural effusion.
[2022-08-26] MEDS ORDERED: PHENYTOIN SODIUM INJ 1,000 MG in SODIUM CHLORIDE 0.9% 100 ML IVPB STA (08:37)
[2022-08-26 08:42] LABS: Glucose,Whole Blood 401 mg/dL (70-110)
[2022-08-26] MEDS: AMIODARONE 450 MG in DEXTROSE 5% IN WATER 250 ML IV SCH ×6 (08:48→21:58)
[2022-08-26] MEDS: ANIDULAFUNGIN 100 MG in SODIUM CHLORIDE 0.9% 100 ML IVPB SCH (08:49)
[2022-08-26] MEDS: polyethylene glycoL 3350 17 GM POWD.PACK PO SCH ×2 (08:51→21:53)
[2022-08-26] MEDS: CHLORHEXIDINE GLUCONATE 15 ML CUP MUCOUS MEM SCH (08:51)
[2022-08-26] MEDS: LACTULOSE 20 GM/30 ML CUP PO SCH ×4 (08:51→21:52)
[2022-08-26] MEDS: TAMSULOSIN 0.4 MG CAP.ER.24H PO SCH (08:52)
[2022-08-26] MEDS: PANTOPRAZOLE 40 MG/10 ML VIAL IVP SCH (08:52)
[2022-08-26] MEDS: FUROSEMIDE 10 MG/ML 10 ML VIAL IV SCH (08:52)
[2022-08-26] MEDS ORDERED: CALCIUM GLUCONATE IN NACL 2 GM in SALINE 1 100ML.BAG IVPB ONE (09:00)
[2022-08-26] MEDS: FORMOTEROL FUMARATE 20 MCG/2 ML NEBU INHALATION SCH ×2 (09:15→19:32)
[2022-08-26] MEDS: BUDESONIDE 1 MG/2 ML NEBU INHALATION SCH ×2 (09:15→19:32)
[2022-08-26] MEDS: IPRATROPIUM 0.5 MG/2.5 ML NEBU INHALATION SCH ×4 (09:16→19:33)
[2022-08-26] MEDS: ALBUTEROL NEBULIZED 2.5 MG/3 ML INHALATION SCH ×4 (09:16→19:32)
[2022-08-26] MEDS: methylPREDNISolone SOD SUCCI 40 MG/ML 1 ML VIAL IV SCH ×2 (10:20→17:30)
[2022-08-26] MEDS: levETIRAcetam IV 1,000 MG in SALINE 1 100ML.BAG IVPB SCH ×2 (11:16→22:01)
[2022-08-26] MEDS ORDERED: POTASSIUM CHLORIDE 20 MEQ in WATER FOR INJECTION 1 100ML.BAG IVPB SCH (11:30)
[2022-08-26] MEDS: 1: MVI, ADULT NO.4 WITH VIT K 10 ML, TRACE (CONC-1ML/DOSE) 1 ML, SODIUM ACETATE 30 MEQ, IV SCH ×7 (12:07)
[2022-08-26] MEDS: POTASSIUM BICARBONATE/CIT AC 20 MEQ TABLET.EFF PO SCH ×3 (12:07→14:15)
[2022-08-26] MEDS: LACOSAMIDE IV 150 MG in SODIUM CHLORIDE 0.9% 50 ML IVPB SCH ×2 (12:07→21:53)
--- NOTE | 2022-08-26 12:29 | P.PN ---
Subjective Patient is seen for follow-up for acute kidney injury, mostly ATN currently slowly improving. Etiology is sepsis with fungemia and UTI with urine cultures growing Pseudomonas and enterococcus. Patient also has left lower lobe pneumonia. Patient remains on the vent. FiO2 is at 40%. Patient is also maintained on levo fed as well as vasopressin Urine output at40-45 mL an hour. Status post trach and PEG on 08/25/2022 Objective - Vital Signs Vital signs: Vital Signs Temp 97.8 F 08/26/22 08:00 Pulse 130 H 08/26/22 11:39 Resp 30 H 08/26/22 11:39 BP 99/52 08/19/22 16:39 Pulse Ox 83 L 08/26/22 11:20 FiO2 45 08/26/22 11:20 Intake & Output 08/25/22 08/26/22 08/26/22 18:59 06:59 18:59 Intake Total 3145.024 2247.836 1158.209 Output Total 163 052 6746 Balance 2575.024 1817.836 138.209 Weight 138.7 kg 140.9 kg Intake: IV 2602 1286 970 0.9% @ KVO 40 200 20 Anidulafungin 100 mg In 100 Sodium Chloride 0.9% 100 ml @ 84 mls/hr IVPB DAILY [facility] Rx#:[id number] Anidulafungin 200 mg In 200 Sodium Chloride 0.9% 200 ml @ 84 mls/hr IVPB ONCE ONE Rx#:[id number] Calcium Gluconate in NaCl 100 1 gm In Saline 1 100ml. bag @ 100 mls/hr IVPB Q1H [facility] Rx#:[id number] Calcium Gluconate in NaCl 100 1 gm In Saline 1 100ml. bag @ 100 mls/hr IVPB Q1H [facility] Rx#:[id number] Ceftolozane/Tazobactam 0. 200 100 100 75 gm In Sodium Chloride 0.9% 100 ml @ 100 mls/hr IV Q8HR [facility] Rx#:[id number] DAPTOmycin 500 mg In 50 Sodium Chloride 0.9% 50 ml @ 100 mls/hr IVPB Q48H [facility] Rx#:[id number] Dextrose 5% in Water 1, 900 825 375 000 ml @ 75 mls/hr IV . [id number] [facility] with Sodium Bicarb (1 Meq/ml) 150 ml Rx#:[id number] Fat Emulsion 20% 250 ml 126 42 In Empty Bag 1 bag @ 21 mls/hr IV TuFr [facility] Rx#: [id number] Lacosamide IV 150 mg In 100 50 Sodium Chloride 0.9% 50 ml @ 100 mls/hr IVPB BID [facility] Rx#:[id number] Linezolid 600 mg In 300 Dextrose/Water 1 300ml. bag @ 150 mls/hr IVPB Q12H [facility] Rx#:[id number] Phenytoin Sodium Inj 1, 200 36 000 mg In Sodium Chloride 0.9% 100 ml @ 200 mls/hr IVPB ONCE [facility] Rx#: [id number] Phenytoin Sodium Inj 1, 100 000 mg In Sodium Chloride 0.9% 100 ml @ 200 mls/hr IVPB ONCE [facility] Rx#: [id number] Potassium Chloride 20 meq 250 In Water For Injection 1 100ml.bag @ 50 mls/hr IVPB Q2H [facility] Rx#: [id number] Pressure Bag 36 33 15 Sodium Acetate 30 meq 260 Potassium Chloride 30 meq Magnesium Sulfate gm 0.5 gm Calcium Gluconate 2 gm In Amino Acids 5 %/ Dextrose 20 % 1,000 ml @ 65 mls/hr IV .BY DURATION [facility] Rx#:[id number] Intake, IV Titration 543.024 961.836 188.209 Amount Amiodarone 450 mg In 500 Dextrose 5% in Water 250 ml @ 1 MG/MIN 33.333 mls/ hr IV .Q7H30M [facility] Rx#: [id number] Midazolam HCl 50 mg In 78.917 42.9 70.267 Sodium Chloride 0.9% 40 ml @ 6 MG/HR 6 mls/hr IV .Q8H20M [facility] Rx#:[id number] Mvi, Adult No.4 with Vit 30 K 10 ml Trace (Conc-1Ml/ Dose) 1 ml Sodium Acetate 30 meq Potassium Chloride 20 meq Magnesium Sulfate gm 0.5 gm Calcium Gluconate 2 gm In Amino Acids 5 %/Dextrose 20 % 1,000 ml @ 30 mls/ hr IV .Q24H [facility] Rx#: [id number] Norepinephrine 32 mg In 434.107 248.658 117.942 Sodium Chloride 0.9% 218 ml @ 0.5 MCG/KG/MIN 25. 547 mls/hr IV .Q9H48M [facility] Rx#:[id number] Vasopressin 60 unit In 70.278 Sodium Chloride 0.9% 150 ml @ 0.04 UNITS/MIN 6.12 mls/hr IV .Q24H [facility] Rx#: [id number] levETIRAcetam IV 1,000 mg 100 In Saline 1 100ml.bag @ 400 mls/hr IVPB Q12HR [facility] Rx#:[id number] Output: Gastric Drainage 750 Urine 560 430 270 Estimated Blood Loss 10 Other: Voiding Method Indwelling Catheter Indwelling Catheter Indwelling Catheter ABP, PAP, CO, CI - Last Documented Arterial Blood Pressure 139/51 - Exam Patient is sedated and on the vent. Examination of the heart S1 and S2 Examination of the lungs bilateral breath sounds are heard Abdomen is soft distended obese Examination lower extremity shows edema 2+ bilaterally upper and lower extremities Discoloration noted in upper and lower extremities VEST BUSHELER exam cannot be performed - Labs CBC & Chem 7: 08/26/22 05:44 08/26/22 05:44 Labs: Abnormal Lab Results - Last 24 Hours (Table) 08/25/22 08/25/22 08/25/22 Range/Units 15:15 15:58 19:14 WBC (3.8-10.6) k/uL RBC (3.80-5.40) m/uL Hgb (11.4-16.0) gm/dL Hct (34.0-46.0) % MCHC (31.0-37.0) g/dL RDW (11.5-15.5) % Neutrophils # (Manual) (1.3-7.7) k/uL Nucleated RBCs (0-0) /100 WBC ABG pH 7.22 L (7.35-7.45) ABG pCO2 48 H (35-45) mmHg ABG pO2 305 H (83-108) mmHg ABG HCO3 20 L (21-25) mmol/L ABG O2 Saturation 99.1 H (94-97) % Sodium (137-145) mmol/L Potassium (3.5-5.1) mmol/L Chloride (98-107) mmol/L Carbon Dioxide (22-30) mmol/L BUN (7-17) mg/dL Creatinine (0.52-1.04) mg/dL Glucose (74-99) mg/dL POC Glucose (mg/dL) 201 H (70-110) mg/dL Calcium (8.4-10.2) mg/dL Ionized Calcium [place] (4.5-5.3) mg/dL Phosphorus (2.5-4.5) mg/dL AST (14-36) U/L Alkaline Phosphatase (38-126) U/L Ammonia 221 H (<30) umol/L Total Protein (6.3-8.2) g/dL Albumin (3.5-5.0) g/dL 08/25/22 08/26/22 08/26/22 Range/Units 21:02 00:02 04:34 WBC (3.8-10.6) k/uL RBC (3.80-5.40) m/uL Hgb (11.4-16.0) gm/dL Hct (34.0-46.0) % MCHC (31.0-37.0) g/dL RDW (11.5-15.5) % Neutrophils # (Manual) (1.3-7.7) k/uL Nucleated RBCs (0-0) /100 WBC ABG pH (7.35-7.45) ABG pCO2 (35-45) mmHg ABG pO2 (83-108) mmHg ABG HCO3 (21-25) mmol/L ABG O2 Saturation (94-97) % Sodium (137-145) mmol/L Potassium (3.5-5.1) mmol/L Chloride (98-107) mmol/L Carbon Dioxide (22-30) mmol/L BUN (7-17) mg/dL Creatinine (0.52-1.04) mg/dL Glucose (74-99) mg/dL POC Glucose (mg/dL) 324 H 415 H 424 H (70-110) mg/dL Calcium (8.4-10.2) mg/dL Ionized Calcium [place] (4.5-5.3) mg/dL Phosphorus (2.5-4.5) mg/dL AST (14-36) U/L Alkaline Phosphatase (38-126) U/L Ammonia (<30) umol/L Total Protein (6.3-8.2) g/dL Albumin (3.5-5.0) g/dL 08/26/22 08/26/22 08/26/22 Range/Units 05:44 05:44 05:44 WBC 21.3 H (3.8-10.6) k/uL RBC 2.79 L (3.80-5.40) m/uL Hgb 7.2 L (11.4-16.0) gm/dL Hct 24.4 L (34.0-46.0) % MCHC 29.4 L (31.0-37.0) g/dL RDW 18.0 H (11.5-15.5) % Neutrophils # (Manual) 20.00 H (1.3-7.7) k/uL Nucleated RBCs 5 H (0-0) /100 WBC ABG pH (7.35-7.45) ABG pCO2 (35-45) mmHg ABG pO2 (83-108) mmHg ABG HCO3 (21-25) mmol/L ABG O2 Saturation (94-97) % Sodium 132 L (137-145) mmol/L Potassium 3.0 L (3.5-5.1) mmol/L Chloride 97 L (98-107) mmol/L Carbon Dioxide 19 L (22-30) mmol/L BUN 76 H (7-17) mg/dL Creatinine 1.74 H (0.52-1.04) mg/dL Glucose 376 H (74-99) mg/dL POC Glucose (mg/dL) (70-110) mg/dL Calcium 5.6 L* (8.4-10.2) mg/dL Ionized Calcium [place] 3.7 L (4.5-5.3) mg/dL Phosphorus 6.3 H (2.5-4.5) mg/dL AST 57 H (14-36) U/L Alkaline Phosphatase 179 H (38-126) U/L Ammonia 171 H (<30) umol/L Total Protein 4.1 L (6.3-8.2) g/dL Albumin 1.6 L (3.5-5.0) g/dL 08/26/22 08/26/22 Range/Units 06:05 08:40 WBC (3.8-10.6) k/uL RBC (3.80-5.40) m/uL Hgb (11.4-16.0) gm/dL Hct (34.0-46.0) % MCHC (31.0-37.0) g/dL RDW (11.5-15.5) % Neutrophils # (Manual) (1.3-7.7) k/uL Nucleated RBCs (0-0) /100 WBC ABG pH 7.26 L (7.35-7.45) ABG pCO2 47 H (35-45) mmHg ABG pO2 (83-108) mmHg ABG HCO3 (21-25) mmol/L ABG O2 Saturation (94-97) % Sodium (137-145) mmol/L Potassium (3.5-5.1) mmol/L Chloride (98-107) mmol/L Carbon Dioxide (22-30) mmol/L BUN (7-17) mg/dL Creatinine (0.52-1.04) mg/dL Glucose (74-99) mg/dL POC Glucose (mg/dL) 401 H (70-110) mg/dL Calcium (8.4-10.2) mg/dL Ionized Calcium [place] (4.5-5.3) mg/dL Phosphorus (2.5-4.5) mg/dL AST (14-36) U/L Alkaline Phosphatase (38-126) U/L Ammonia (<30) umol/L Total Protein (6.3-8.2) g/dL Albumin (3.5-5.0) g/dL Microbiology - Last 24 Hours (Table) 08/23/22 11:40 Blood Culture Gram Stain - Final Blood Blood Culture - Final Enterococcus faecium VRE Assessment and Plan Assessment: 1. Acute kidney injury secondary to ATN from underlying infection with fungemia and urine tract infection with Pseudomonas and enterococcus. Creatinine is improved this morning from 2.72 mg to 1.59. 2. Hypotension secondary to sepsis, on levo fed and vasopressin 3. Ventilator dependent respiratory failure, stable 40% FiO2 status post trach and PEG 3. Left lower lobe pneumonia 4. UTI with Pseudomonas and enterococcus. 5. Hypocalcemia secondary to acute kidney injury. Severe nutritional vitamin D deficiency noted 6. Elevated liver function tests secondary to sepsis/ hypotension Plan: Replace potassium, calcium. Continue with Drisdol Maintain TPN Continue with the bicarb drip.
--- NOTE | 2022-08-26 12:45 | P.PN ---
Subjective Progress Note Date: 08/26/22 Principal diagnosis: Sepsis, acute kidney injury, shortness of breath, heart failure, on ventilator at 40% FiO2, on vasopressin and Levophed doses of both meds have been reduced, b lood pressure is improved urinary output has improved, low-grade temp noted Patient presented to the hospital on 08/08/2022 secondary to shortness of breath hypotension patient had syncopal episode on the toilet, was recently discharged from rehab facility, brought in by EMS, was admitted to the stepdown unit, and subsequently transferred to the intensive care unit where she was placed on BiPAP secondary to severe acidosis and was intubated and placed on pressors , despite multiple boluses of normal saline despite receiving IV Lasix. This patient has a long-standing history of diabetes hypertension 08/26/2022 patient currently intubated and sedated, etiology for current state includes se psis fungemia urinary sepsis urine cultures growing Pseudomonas and enterococcus and acute tubular necrosis the kidneys, and left lower lobe pneumonia Patient is currently maintained on pressors including Levophed and vasopressin, recently had tracheostomy and PEG tube placed Objective - Vital Signs Vital signs: Vital Signs Temp 98.0 F 08/26/22 12:00 Pulse 124 H 08/26/22 12:15 Resp 30 H 08/26/22 12:15 BP 99/52 08/19/22 16:39 Pulse Ox 83 L 08/26/22 11:20 FiO2 45 08/26/22 12:00 Intake & Output 08/25/22 08/26/22 08/26/22 18:59 06:59 18:59 Intake Total 3145.024 2247.836 1401.209 Output Total 929 585 5272 Balance 2575.024 1817.836 231.209 Weight 138.7 kg 140.9 kg Intake: IV 2602 1286 1213 0.9% @ KVO 40 200 20 Anidulafungin 100 mg In 100 Sodium Chloride 0.9% 100 ml @ 84 mls/hr IVPB DAILY [facility] Rx#:[id number] Anidulafungin 200 mg In 200 Sodium Chloride 0.9% 200 ml @ 84 mls/hr IVPB ONCE ONE Rx#:[id number] Calcium Gluconate in NaCl 100 1 gm In Saline 1 100ml. bag @ 100 mls/hr IVPB Q1H [facility] Rx#:[id number] Calcium Gluconate in NaCl 100 1 gm In Saline 1 100ml. bag @ 100 mls/hr IVPB Q1H [facility] Rx#:[id number] Ceftolozane/Tazobactam 0. 200 100 100 75 gm In Sodium Chloride 0.9% 100 ml @ 100 mls/hr IV Q8HR [facility] Rx#:[id number] DAPTOmycin 500 mg In 50 Sodium Chloride 0.9% 50 ml @ 100 mls/hr IVPB Q48H [facility] Rx#:[id number] Dextrose 5% in Water 1, 900 825 450 000 ml @ 75 mls/hr IV . [id number] [facility] with Sodium Bicarb (1 Meq/ml) 150 ml Rx#:[id number] Fat Emulsion 20% 250 ml 126 42 In Empty Bag 1 bag @ 21 mls/hr IV TuFr [facility] Rx#: [id number] Lacosamide IV 150 mg In 100 50 Sodium Chloride 0.9% 50 ml @ 100 mls/hr IVPB BID [facility] Rx#:[id number] Linezolid 600 mg In 300 Dextrose/Water 1 300ml. bag @ 150 mls/hr IVPB Q12H [facility] Rx#:[id number] Phenytoin Sodium Inj 1, 200 36 000 mg In Sodium Chloride 0.9% 100 ml @ 200 mls/hr IVPB ONCE [facility] Rx#: [id number] Phenytoin Sodium Inj 1, 100 000 mg In Sodium Chloride 0.9% 100 ml @ 200 mls/hr IVPB ONCE [facility] Rx#: [id number] Potassium Chloride 20 meq 250 In Water For Injection 1 100ml.bag @ 50 mls/hr IVPB Q2H [facility] Rx#: [id number] Pressure Bag 36 33 18 Sodium Acetate 30 meq 325 Potassium Chloride 30 meq Magnesium Sulfate gm 0.5 gm Calcium Gluconate 2 gm In Amino Acids 5 %/ Dextrose 20 % 1,000 ml @ 65 mls/hr IV .BY DURATION [facility] Rx#:[id number] levETIRAcetam IV 1,000 mg 100 In Saline 1 100ml.bag @ 400 mls/hr IVPB Q12HR [facility] Rx#:[id number] Intake, IV Titration 543.024 961.836 188.209 Amount Amiodarone 450 mg In 500 Dextrose 5% in Water 250 ml @ 1 MG/MIN 33.333 mls/ hr IV .Q7H30M [facility] Rx#: [id number] Midazolam HCl 50 mg In 78.917 42.9 70.267 Sodium Chloride 0.9% 40 ml @ 6 MG/HR 6 mls/hr IV .Q8H20M [facility] Rx#:[id number] Mvi, Adult No.4 with Vit 30 K 10 ml Trace (Conc-1Ml/ Dose) 1 ml Sodium Acetate 30 meq Potassium Chloride 20 meq Magnesium Sulfate gm 0.5 gm Calcium Gluconate 2 gm In Amino Acids 5 %/Dextrose 20 % 1,000 ml @ 30 mls/ hr IV .Q24H [facility] Rx#: [id number] Norepinephrine 32 mg In 434.107 248.658 117.942 Sodium Chloride 0.9% 218 ml @ 0.5 MCG/KG/MIN 25. 547 mls/hr IV .Q9H48M [facility] Rx#:[id number] Vasopressin 60 unit In 70.278 Sodium Chloride 0.9% 150 ml @ 0.04 UNITS/MIN 6.12 mls/hr IV .Q24H [facility] Rx#: [id number] levETIRAcetam IV 1,000 mg 100 In Saline 1 100ml.bag @ 400 mls/hr IVPB Q12HR [facility] Rx#:[id number] Output: Gastric Drainage 750 Urine 560 430 420 Estimated Blood Loss 10 Other: Voiding Method Indwelling Catheter Indwelling Catheter Indwelling Catheter ABP, PAP, CO, CI - Last Documented Arterial Blood Pressure 102/46 - Exam General: Patient is intubated on a vent Morbidly obese HEENT: Normocephalic atraumatic, senescent pattern baldness Neck: [No adenopathy.] Cardiac: [Heart regularly irregular. No S3. No S4. No clicks, rubs. Lungs: Diminished breath sounds bilaterally scattered rhonchi noted Abdomen: [No mass. No organomegaly. Bowel sounds presnt and normoactive in all 4 quadrants. This patient is morbidly obese Extremes: [4+ edema bilateral upper and lower extremes no cyanosis no claudication normal pulses] : Normal female genitalia Skin: Multiple sites of ecchymosis on bilateral arms Neurologic: Patient is sedated on a ventilatory support Lymphatic: [No adenopathy.] - Labs CBC & Chem 7: 08/26/22 05:44 08/26/22 05:44 Labs: Abnormal Lab Results - Last 24 Hours (Table) 08/25/22 08/25/22 08/25/22 Range/Units 15:15 15:58 19:14 WBC (3.8-10.6) k/uL RBC (3.80-5.40) m/uL Hgb (11.4-16.0) gm/dL Hct (34.0-46.0) % MCHC (31.0-37.0) g/dL RDW (11.5-15.5) % Neutrophils # (Manual) (1.3-7.7) k/uL Nucleated RBCs (0-0) /100 WBC ABG pH 7.22 L (7.35-7.45) ABG pCO2 48 H (35-45) mmHg ABG pO2 305 H (83-108) mmHg ABG HCO3 20 L (21-25) mmol/L ABG O2 Saturation 99.1 H (94-97) % Sodium (137-145) mmol/L Potassium (3.5-5.1) mmol/L Chloride (98-107) mmol/L Carbon Dioxide (22-30) mmol/L BUN (7-17) mg/dL Creatinine (0.52-1.04) mg/dL Glucose (74-99) mg/dL POC Glucose (mg/dL) 201 H (70-110) mg/dL Calcium (8.4-10.2) mg/dL Ionized Calcium [place] (4.5-5.3) mg/dL Phosphorus (2.5-4.5) mg/dL AST (14-36) U/L Alkaline Phosphatase (38-126) U/L Ammonia 221 H (<30) umol/L Total Protein (6.3-8.2) g/dL Albumin (3.5-5.0) g/dL 08/25/22 08/26/22 08/26/22 Range/Units 21:02 00:02 04:34 WBC (3.8-10.6) k/uL RBC (3.80-5.40) m/uL Hgb (11.4-16.0) gm/dL Hct (34.0-46.0) % MCHC (31.0-37.0) g/dL RDW (11.5-15.5) % Neutrophils # (Manual) (1.3-7.7) k/uL Nucleated RBCs (0-0) /100 WBC ABG pH (7.35-7.45) ABG pCO2 (35-45) mmHg ABG pO2 (83-108) mmHg ABG HCO3 (21-25) mmol/L ABG O2 Saturation (94-97) % Sodium (137-145) mmol/L Potassium (3.5-5.1) mmol/L Chloride (98-107) mmol/L Carbon Dioxide (22-30) mmol/L BUN (7-17) mg/dL Creatinine (0.52-1.04) mg/dL Glucose (74-99) mg/dL POC Glucose (mg/dL) 324 H 415 H 424 H (70-110) mg/dL Calcium (8.4-10.2) mg/dL Ionized Calcium [place] (4.5-5.3) mg/dL Phosphorus (2.5-4.5) mg/dL AST (14-36) U/L Alkaline Phosphatase (38-126) U/L Ammonia (<30) umol/L Total Protein (6.3-8.2) g/dL Albumin (3.5-5.0) g/dL 08/26/22 08/26/22 08/26/22 Range/Units 05:44 05:44 05:44 WBC 21.3 H (3.8-10.6) k/uL RBC 2.79 L (3.80-5.40) m/uL Hgb 7.2 L (11.4-16.0) gm/dL Hct 24.4 L (34.0-46.0) % MCHC 29.4 L (31.0-37.0) g/dL RDW 18.0 H (11.5-15.5) % Neutrophils # (Manual) 20.00 H (1.3-7.7) k/uL Nucleated RBCs 5 H (0-0) /100 WBC ABG pH (7.35-7.45) ABG pCO2 (35-45) mmHg ABG pO2 (83-108) mmHg ABG HCO3 (21-25) mmol/L ABG O2 Saturation (94-97) % Sodium 132 L (137-145) mmol/L Potassium 3.0 L (3.5-5.1) mmol/L Chloride 97 L (98-107) mmol/L Carbon Dioxide 19 L (22-30) mmol/L BUN 76 H (7-17) mg/dL Creatinine 1.74 H (0.52-1.04) mg/dL Glucose 376 H (74-99) mg/dL POC Glucose (mg/dL) (70-110) mg/dL Calcium 5.6 L* (8.4-10.2) mg/dL Ionized Calcium [place] 3.7 L (4.5-5.3) mg/dL Phosphorus 6.3 H (2.5-4.5) mg/dL AST 57 H (14-36) U/L Alkaline Phosphatase 179 H (38-126) U/L Ammonia 171 H (<30) umol/L Total Protein 4.1 L (6.3-8.2) g/dL Albumin 1.6 L (3.5-5.0) g/dL 08/26/22 08/26/22 Range/Units 06:05 08:40 WBC (3.8-10.6) k/uL RBC (3.80-5.40) m/uL Hgb (11.4-16.0) gm/dL Hct (34.0-46.0) % MCHC (31.0-37.0) g/dL RDW (11.5-15.5) % Neutrophils # (Manual) (1.3-7.7) k/uL Nucleated RBCs (0-0) /100 WBC ABG pH 7.26 L (7.35-7.45) ABG pCO2 47 H (35-45) mmHg ABG pO2 (83-108) mmHg ABG HCO3 (21-25) mmol/L ABG O2 Saturation (94-97) % Sodium (137-145) mmol/L Potassium (3.5-5.1) mmol/L Chloride (98-107) mmol/L Carbon Dioxide (22-30) mmol/L BUN (7-17) mg/dL Creatinine (0.52-1.04) mg/dL Glucose (74-99) mg/dL POC Glucose (mg/dL) 401 H (70-110) mg/dL Calcium (8.4-10.2) mg/dL Ionized Calcium [place] (4.5-5.3) mg/dL Phosphorus (2.5-4.5) mg/dL AST (14-36) U/L Alkaline Phosphatase (38-126) U/L Ammonia (<30) umol/L Total Protein (6.3-8.2) g/dL Albumin (3.5-5.0) g/dL Microbiology - Last 24 Hours (Table) 08/23/22 11:40 Blood Culture Gram Stain - Final Blood Blood Culture - Final Enterococcus faecium VRE Assessment and Plan (1) Sepsis Current Visit: Yes Status: Acute Code(s): A41.9 - SEPSIS, UNSPECIFIED ORGANISM SNOMED Code(s): 57624166 (2) Acquired hypothyroidism Current Visit: No Status: Acute Code(s): E03.9 - HYPOTHYROIDISM, UNSPECIFIED SNOMED Code(s): 502645797 (3) Acute exacerbation of chronic obstructive pulmonary disease Current Visit: Yes Status: Acute Code(s): J44.1 - CHRONIC OBSTRUCTIVE PULMONARY DISEASE W (ACUTE) EXACERBATION SNOMED Code(s): 794341210 (4) Acute on chronic diastolic (congestive) heart failure Current Visit: No Status: Acute Code(s): I50.33 - ACUTE ON CHRONIC DIASTOLIC (CONGESTIVE) HEART FAILURE SNOMED Code(s): 648918518 (5) Acute on chronic renal failure Current Visit: No Status: Acute Code(s): N17.9 - ACUTE KIDNEY FAILURE, UNSPECIFIED; N18.9 - CHRONIC KIDNEY DISEASE, UNSPECIFIED SNOMED Code(s): 623728739 (6) Acute pulmonary edema Current Visit: No Status: Acute Code(s): J81.0 - ACUTE PULMONARY EDEMA SNOMED Code(s): 93645822 (7) Acute renal failure Current Visit: No Status: Acute Code(s): N17.9 - ACUTE KIDNEY FAILURE, UNSPECIFIED SNOMED Code(s): 35579419 (8) Altered mental status Current Visit: No Status: Acute Code(s): R41.82 - ALTERED MENTAL STATUS, UNSPECIFIED SNOMED Code(s): 380112387 (9) Anemia Current Visit: Yes Status: Acute Code(s): D64.9 - ANEMIA, UNSPECIFIED SNOMED Code(s): 158844298 (10) CAD (coronary atherosclerotic disease) Current Visit: No Status: Acute Code(s): I25.10 - ATHSCL HEART DISEASE OF [place] CORONARY ARTERY W/O ANG PCTRS SNOMED Code(s): 720310107 (11) CHF (congestive heart failure) Current Visit: No Status: Acute Code(s): I50.9 - HEART FAILURE, UNSPECIFIED SNOMED Code(s): 41546760 (12) CKD (chronic kidney disease) stage 3, GFR 30-59 ml/min Current Visit: No Status: Acute Code(s): N18.30 - CHRONIC KIDNEY DISEASE, STAGE 3 UNSPECIFIED SNOMED Code(s): 698365499 (13) COPD exacerbation Current Visit: No Status: Acute Code(s): J44.1 - CHRONIC OBSTRUCTIVE PULMONARY DISEASE W (ACUTE) EXACERBATION SNOMED Code(s): 546598802 (14) COVID-19 Current Visit: No Status: Acute Code(s): U07.1 - COVID-19 SNOMED Code(s): 120887808 (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 Current Visit: No Status: Acute Code(s): M54.42 - LUMBAGO WITH SCIATICA, LEFT SIDE; M54.41 - LUMBAGO WITH SCIATICA, RIGHT SIDE; G89.29 - OTHER CHRONIC PAIN SNOMED Code(s): 937406009 Plan: Acute kidney injury secondary to urinary sepsis, slowly improving Hypotension secondary to sepsis, improved Acute respiratory failure ventilator dependent Left lower lobe pneumonia Urinary tract infection secondary to Pseudomonas and enterococcus Elevated liver function secondary to sepsis Aggressive supportive care being provided Prognosis guarded secondary to multiorgan failure ventilator dependence and acute kidney injury This has been discussed with and daughter multiple times Time with Patient: Greater than 30
--- NOTE | 2022-08-26 12:46 | P.PN ---
Subjective Progress Note Date: 08/26/22 History of present illness: This is an 87-year-old woman admitted to the intensive care unit with obstruct kolby bowel and subsequently developed bowel perforation. We're following for atrial fibrillation. Patient remains in atrial fibrillation with heart rate in the 120s to 140s. She is currently maxed out on levo fed and vasopressin. She had a trach placed yesterday. Last evening, staff rolled her to clean her from a bowel movement and her blood pressure dropped to 40/29 and she became bradycardic but had recovered on her own. Physical examination: Gen: This is a morbidly obese 87-year-old female, intubated and on mechanical ventilation VS: reviewed HEENT: Head is atraumatic, normocephalic. LUNGS: Managed. No intercostal retractions. HEART: Irregular ABDOMEN: Distended. EXTREMITIES: 2+ pedal edema. Toes are dusky Assessment: Persistent atrial fibrillation with poorly controlled ventricular rate Perforated bowel Severe hypotension Plan: Continue current plan Prognosis poor. Nurse practitioner note has been reviewed, I agree with documented findings and plan of care. Patient was seen and examined. Objective - Vital Signs Vital signs: Vital Signs Temp 98 F 08/26/22 00:00 Pulse 126 H 08/26/22 07:00 Resp 30 H 08/26/22 07:00 BP 99/52 08/19/22 16:39 Pulse Ox 76 L 08/26/22 01:00 FiO2 45 08/26/22 09:08 Intake & Output 08/25/22 08/26/22 08/26/22 18:59 06:59 18:59 Intake Total 3145.024 2247.836 138.4 Output Total 570 430 805 Balance 2575.024 1817.836 -666.6 Weight 138.7 kg 140.9 kg Intake: IV 2602 1286 98 0.9% @ KVO 40 200 20 Anidulafungin 200 mg In 200 Sodium Chloride 0.9% 200 ml @ 84 mls/hr IVPB ONCE ONE Rx#:[id number] Calcium Gluconate in NaCl 100 1 gm In Saline 1 100ml. bag @ 100 mls/hr IVPB Q1H [facility] Rx#:[id number] Calcium Gluconate in NaCl 100 1 gm In Saline 1 100ml. bag @ 100 mls/hr IVPB Q1H [facility] Rx#:[id number] Ceftolozane/Tazobactam 0. 200 100 75 gm In Sodium Chloride 0.9% 100 ml @ 100 mls/hr IV Q8HR [facility] Rx#:[id number] DAPTOmycin 500 mg In 50 Sodium Chloride 0.9% 50 ml @ 100 mls/hr IVPB Q48H [facility] Rx#:[id number] Dextrose 5% in Water 1, 900 825 75 000 ml @ 75 mls/hr IV . [id number] [facility] with Sodium Bicarb (1 Meq/ml) 150 ml Rx#:[id number] Fat Emulsion 20% 250 ml 126 42 In Empty Bag 1 bag @ 21 mls/hr IV TuFr [facility] Rx#: [id number] Lacosamide IV 150 mg In 100 50 Sodium Chloride 0.9% 50 ml @ 100 mls/hr IVPB BID [facility] Rx#:[id number] Linezolid 600 mg In 300 Dextrose/Water 1 300ml. bag @ 150 mls/hr IVPB Q12H [facility] Rx#:[id number] Phenytoin Sodium Inj 1, 200 36 000 mg In Sodium Chloride 0.9% 100 ml @ 200 mls/hr IVPB ONCE [facility] Rx#: [id number] Potassium Chloride 20 meq 250 In Water For Injection 1 100ml.bag @ 50 mls/hr IVPB Q2H [facility] Rx#: [id number] Pressure Bag 36 33 3 Intake, IV Titration 543.024 961.836 40.4 Amount Amiodarone 450 mg In 500 Dextrose 5% in Water 250 ml @ 1 MG/MIN 33.333 mls/ hr IV .Q7H30M [facility] Rx#: [id number] Midazolam HCl 50 mg In 78.917 42.9 40.4 Sodium Chloride 0.9% 40 ml @ 6 MG/HR 6 mls/hr IV .Q8H20M [facility] Rx#:[id number] Mvi, Adult No.4 with Vit 30 K 10 ml Trace (Conc-1Ml/ Dose) 1 ml Sodium Acetate 30 meq Potassium Chloride 20 meq Magnesium Sulfate gm 0.5 gm Calcium Gluconate 2 gm In Amino Acids 5 %/Dextrose 20 % 1,000 ml @ 30 mls/ hr IV .Q24H [facility] Rx#: [id number] Norepinephrine 32 mg In 434.107 248.658 Sodium Chloride 0.9% 218 ml @ 0.5 MCG/KG/MIN 25. 547 mls/hr IV .Q9H48M [facility] Rx#:[id number] Vasopressin 60 unit In 70.278 Sodium Chloride 0.9% 150 ml @ 0.04 UNITS/MIN 6.12 mls/hr IV .Q24H [facility] Rx#: [id number] levETIRAcetam IV 1,000 mg 100 In Saline 1 100ml.bag @ 400 mls/hr IVPB Q12HR [facility] Rx#:[id number] Output: Gastric Drainage 750 Urine 560 430 55 Estimated Blood Loss 10 Other: Voiding Method Indwelling Catheter Indwelling Catheter ABP, PAP, CO, CI - Last Documented Arterial Blood Pressure 133/44 - Labs CBC & Chem 7: 08/26/22 05:44 08/26/22 05:44 Labs: Abnormal Lab Results - Last 24 Hours (Table) 08/25/22 08/25/22 08/25/22 Range/Units 11:32 15:15 15:58 WBC (3.8-10.6) k/uL RBC (3.80-5.40) m/uL Hgb (11.4-16.0) gm/dL Hct (34.0-46.0) % MCHC (31.0-37.0) g/dL RDW (11.5-15.5) % Neutrophils # (Manual) (1.3-7.7) k/uL Nucleated RBCs (0-0) /100 WBC ABG pH (7.35-7.45) ABG pCO2 (35-45) mmHg ABG pO2 (83-108) mmHg ABG HCO3 (21-25) mmol/L ABG O2 Saturation (94-97) % Sodium (137-145) mmol/L Potassium (3.5-5.1) mmol/L Chloride (98-107) mmol/L Carbon Dioxide (22-30) mmol/L BUN (7-17) mg/dL Creatinine (0.52-1.04) mg/dL Glucose (74-99) mg/dL POC Glucose (mg/dL) 234 H 201 H (70-110) mg/dL Calcium (8.4-10.2) mg/dL Ionized Calcium [place] (4.5-5.3) mg/dL Phosphorus (2.5-4.5) mg/dL AST (14-36) U/L Alkaline Phosphatase (38-126) U/L Ammonia 221 H (<30) umol/L Total Protein (6.3-8.2) g/dL Albumin (3.5-5.0) g/dL 08/25/22 08/25/22 08/26/22 Range/Units 19:14 21:02 00:02 WBC (3.8-10.6) k/uL RBC (3.80-5.40) m/uL Hgb (11.4-16.0) gm/dL Hct (34.0-46.0) % MCHC (31.0-37.0) g/dL RDW (11.5-15.5) % Neutrophils # (Manual) (1.3-7.7) k/uL Nucleated RBCs (0-0) /100 WBC ABG pH 7.22 L (7.35-7.45) ABG pCO2 48 H (35-45) mmHg ABG pO2 305 H (83-108) mmHg ABG HCO3 20 L (21-25) mmol/L ABG O2 Saturation 99.1 H (94-97) % Sodium (137-145) mmol/L Potassium (3.5-5.1) mmol/L Chloride (98-107) mmol/L Carbon Dioxide (22-30) mmol/L BUN (7-17) mg/dL Creatinine (0.52-1.04) mg/dL Glucose (74-99) mg/dL POC Glucose (mg/dL) 324 H 415 H (70-110) mg/dL Calcium (8.4-10.2) mg/dL Ionized Calcium [place] (4.5-5.3) mg/dL Phosphorus (2.5-4.5) mg/dL AST (14-36) U/L Alkaline Phosphatase (38-126) U/L Ammonia (<30) umol/L Total Protein (6.3-8.2) g/dL Albumin (3.5-5.0) g/dL 08/26/22 08/26/22 08/26/22 Range/Units 04:34 05:44 05:44 WBC (3.8-10.6) k/uL RBC (3.80-5.40) m/uL Hgb (11.4-16.0) gm/dL Hct (34.0-46.0) % MCHC (31.0-37.0) g/dL RDW (11.5-15.5) % Neutrophils # (Manual) (1.3-7.7) k/uL Nucleated RBCs (0-0) /100 WBC ABG pH (7.35-7.45) ABG pCO2 (35-45) mmHg ABG pO2 (83-108) mmHg ABG HCO3 (21-25) mmol/L ABG O2 Saturation (94-97) % Sodium 132 L (137-145) mmol/L Potassium 3.0 L (3.5-5.1) mmol/L Chloride 97 L (98-107) mmol/L Carbon Dioxide 19 L (22-30) mmol/L BUN 76 H (7-17) mg/dL Creatinine 1.74 H (0.52-1.04) mg/dL Glucose 376 H (74-99) mg/dL POC Glucose (mg/dL) 424 H (70-110) mg/dL Calcium 5.6 L* (8.4-10.2) mg/dL Ionized Calcium [place] 3.7 L (4.5-5.3) mg/dL Phosphorus 6.3 H (2.5-4.5) mg/dL AST 57 H (14-36) U/L Alkaline Phosphatase 179 H (38-126) U/L Ammonia 171 H (<30) umol/L Total Protein 4.1 L (6.3-8.2) g/dL Albumin 1.6 L (3.5-5.0) g/dL 08/26/22 08/26/22 08/26/22 Range/Units 05:44 06:05 08:40 WBC 21.3 H (3.8-10.6) k/uL RBC 2.79 L (3.80-5.40) m/uL Hgb 7.2 L (11.4-16.0) gm/dL Hct 24.4 L (34.0-46.0) % MCHC 29.4 L (31.0-37.0) g/dL RDW 18.0 H (11.5-15.5) % Neutrophils # (Manual) 20.00 H (1.3-7.7) k/uL Nucleated RBCs 5 H (0-0) /100 WBC ABG pH 7.26 L (7.35-7.45) ABG pCO2 47 H (35-45) mmHg ABG pO2 (83-108) mmHg ABG HCO3 (21-25) mmol/L ABG O2 Saturation (94-97) % Sodium (137-145) mmol/L Potassium (3.5-5.1) mmol/L Chloride (98-107) mmol/L Carbon Dioxide (22-30) mmol/L BUN (7-17) mg/dL Creatinine (0.52-1.04) mg/dL Glucose (74-99) mg/dL POC Glucose (mg/dL) 401 H (70-110) mg/dL Calcium (8.4-10.2) mg/dL Ionized Calcium [place] (4.5-5.3) mg/dL Phosphorus (2.5-4.5) mg/dL AST (14-36) U/L Alkaline Phosphatase (38-126) U/L Ammonia (<30) umol/L Total Protein (6.3-8.2) g/dL Albumin (3.5-5.0) g/dL Microbiology - Last 24 Hours (Table) 08/23/22 11:40 Blood Culture Gram Stain - Preliminary Blood Blood Culture - Preliminary Enterococcus faecium
--- NOTE | 2022-08-26 12:59 | P.PN ---
Subjective Progress Note Date: 08/26/22 Principal diagnosis: Acute on chronic hypoxic respiratory failure secondary to acute diastolic congestive heart failure, and septic shock. With abdominal sepsis and bowel perforation. 08/20/2022, I'm seeing the patient for a follow-up. Since yesterday, the patient has taken a turn to the worse. As of yesterday, the patient started having episodes of fever with a T-max of 103.1. At the same time, the patient's blood pressure was getting more soft and the patient was becoming more hypotensive in the urine output dropped considerably. As such, the patient had to be placed on a higher dose of pressors. The patient was given a total of 2 L of IV fluids. Vancomycin was also added to the regimen as the patient is taking currently a combination of Zerbaxa and Eraxis. On today's evaluation, the patient is still off sedation. The patient is on a mechanical ventilator on assist control mode of mechanical ventilation rate of 28 with a tidal volume of 400 and a PEEP of 5 and FiO2 of 40%. The chest x-ray shows limited bibasilar pulmonary infiltrates. ET tube is in a good location. No signs of any consolidation or pulmonary edema. The blood gas shows a pH of 7.2 with a pCO2 of 33 and a pO2 of 76. As such, the patient has become progressively more acidotic. Hemodynamically, the patient has become more hypotensive and the patient is currently on a combination of vasopressin physiologic dose and a norepinephrine had to be brought up to 0.2 mcg/kg/m. Urine output is extremely low at this point in time. The white cell count has come up to 26.6 from 19.9 a nd the hemoglobin is at 8.7. Noted the patient was given units of packed RBC for a hemoglobin of 6.9 yesterday and hemoglobin is at 8.7 today. The patient has become also acidotic. Urine is at 67 with a creatinine of 1.4. Serum bicarb is at 17 and this is a non-anion gap metabolic acidosis. Sodium is at 141 with a potassium level of 4.7. LFTs are normal. The patient is receiving TPN through a midline in the left upper extremity at the rate of 68 mL an hour. She also has a triple-lumen catheter in the left subclavian. The patient is in a positive fluid balance. The patient is still febrile. The patient is stooling. The laxatives have been discontinued. She is currently has a fecal management system in Place and stool was also sent for C. diff.. The patient is unresponsive to any verbal or painful stimulation at this point in time and she's been off sedation for the past 48 hours. His obvious component of metabolic encephalopathy secondary to ovulation comorbidities. She remains on amiodarone drip at 1 mg/m. She remains in atrial fibrillation. She is on anticoagulation with Eliquis 5 mg by mouth twice a day. Reevaluated today on 08/21/2022, patient remains on the ventilator, intubated mechanically ventilated, on assist control rate 28, volume 400 FiO2 40% PEEP of 5. ABG showed a pO2 of 82 pCO2 34 pH of 7.29, patient was placed on bicarb drip earlier by nephrology. She is maximized on norepinephrine at 0.5 mcg/kg/m she is also on amiodarone 1 mg/m vasopressin at 0.[address] of the abdomen yesterday showed bowel perforation and pneumoperitoneum of blood is positive for enterococcus. Patient is atrial fibrillation with RVR. Family today is at bedside, and had a long discussion with the and the daughter, explained to them that her condition is basically extremely poor, and the patient will not make it considering her new finding of abdominal sepsis. They were made aware yesterday by the surgeon about her bowel perforation, the surgeon and the family felt that she is extremely high surgical risk, hence no surgery was done for her abdominal sepsis and bowel perforation. In the meantime the patient is maximized on pressors she is also on antibiotics, her WBC scan is 17.8 hemoglobin is 8.2 bicarb is 16 BUN is 76 creatinine 1.73. The primary care physician Dr. Hartman talk to the about her condition and he was able to change her CODE STATUS to DO NOT RESUSCITATE CODE STATUS. However the family is still not agreeable to consider comfort care measures. I even suggested stopping the presses and down the line consider comfort care but not yet at this point. Family does not seem to be very agreeable. Patient is on good course of antibiotics, which is also on antifungal therapy. Also on bronchodilators. Being followed by infectious disease and now she is on daptomycin, patient is also on Eraxis, and zerbaxa Patient was reevaluated today on 08/22/22, admitted ICU intubated mechanically ventilated. She is maximized on pressors, she is on assist control rate of 28th of volume 400 FiO2 40% PEEP of 5 ABG showed a pO2 of 65 pCO2 36 pH of 7.31. Patient is on 0.5 g ventricular per minute of norepinephrine 0.04 units per minute of vasopressin remains on bicarb drip, remains on amiodarone 1 mg/m and her normal saline at 100 mL per hour. WBC count is 16.5 hemoglobin is 7.8. Sick metabolic profile is normal renal profile is abnormal with BUN of 83 creatinine 1.79 and remains on antibiotics as per infectious disease on the case. Chest x-ray showed bibasilar atelectasis and consolidations. And small tiny right-sided pleural effusion endotracheal tube and orogastric tube are in proper positions Reevaluated today on patient remains in the ICU, she is intubated and mechanically ventilated. Patient is on assist control rate of 28, tidal volume 400 FiO2 50% PEEP of 5 ABG showed a pO2 of 90 pCO2 39 pH of 7.31. Patient is still maximized on pressors including norepinephrine at 0.5 mcg/kg/m vasopressin at 0.04 units per minute still receiving bicarb 3 A in 1 L of D5W at 75 mL per hour remains on amiodarone at 1 mg/m IV fluid at KVO heart rate is 110 to 130. Chest x-ray showing bibasilar infiltrates/atelectasis and small pleural effusions, not much of a change control specialist the last couple of days. The peak and today's 15.3 hemoglobin is 7.5. Renal profile is abnormal with BUN of 83 creati nine 2.13. Ammonia level is 210. Not much of a change overall in the last 24 hours, patient remains very critically ill. And I believe her condition is mostly futile. is reluctant to consider comfort care measures on this patient. reevaluated today on 08/24/2022, patient remains in the ICU, remains intubated and mechanically ventilated, she is on assist control rate of 28 tidal volume 400 FiO2 50% PEEP of 5. ABG showed a pO2 of 84 pCO2 of 39 pH of 7.33. Patient remains maximized on pressors, she is on norepinephrine at 0.5 mcg/kg/m vasopressin 0.04 units per minute she is also on amiodarone 1 mg/m, still on sodium bicarb 3 A in 1 L of D5W running at 70 mL per hour. Patient is being considered now for tracheostomy and PEG tube placement, although I strongly believe that the patient's condition is futile. Her blood cultures are now positive for Enterococcus faecium, sputum cultures are positive for MRSA. I'm not surprised that her rate blood cultures are positive considering the patient has significantly profound abdominal sepsis and bowel perforation that being treated medically and not surgically.even if we change the lines on this patient, that would get reinfected since the patient has ongoing abdominal sepsis and possibly abdominal abscesses,hence I'm extremely reluctant to change her lines at this point when there is ongoing abdominal sepsis.patient is rece iving antibiotics, I have strongly recommended comfort care measures on this patient, but the seems to be reluctant to consider such recommendation, and he seems to be agreeable to proceed with tracheostomy and PEG tube placement which is again the extreme at this pointnonetheless the patient has been intubated now for almost 2 weeks. Reevaluated today on 08/25/2022, patient remains in the ICU, intubated and mechanically ventilated, he is on assist control rate of 28th of volume 400 FiO2 50% PEEP of 5 ABG showed a pO2 of 91 pCO2 42 pH of 7.28 patient is scheduled to undergo tracheostomy and PEG tube placement today, hence no changes were made in her present ventilator settings. Patient is still maximized on pressors including norepinephrine at 0.5 mcg/kg/m vasopressin at 0.04 units per minute she is also on amiodarone 1 mg/m TPN at 50 mL/h. Sodium bicarb 3 A in D5W at 75 mL per hour she is also on Versed 6 mg per hour. Chest x-ray shows worsening in her bilateral pneumonia. WBC count is getting worse today 21.7 hemoglobin is 7.3, basic metabolic profile showed slightly low potassium of 3.0, BUN is 79 creatinine 1.87, basically unchanged in the last couple of days. Serum albumin is 1.7. Ionized calcium is 5.2, patient received calcium earlier today Reevaluated today on 08/26/2022, patient remains in the ICU, intubated mechanically ventilated, she is now on assist control rate of 30 tidal volume 400 FiO2 45% PEEP is at 10. Try to go down on the feet, however the patient desaturated and I kept her on a PEEP of 10. ABG today showed a pO2 of 84 pCO2 47 pH of 7.26. Patient remains on multiple drips, she had uneventful tracheostomy placed on 08/25 yesterday. However she did not have a PEG tube, continues to have a nasogastric tube in place. She is now on norepinephrine at 0.47 vasopressin at 0.04 amiodarone at 1 mg/m, bicarb at 75 mL/h Versed at 7 mg per hour today I added Solu-Medrol 40 mg IV push every 8 hours. Mostly because on physical examination she has significant rhonchi and wheezes chest x-ray continues to show bilateral infiltrates. Not much of a change. Overall clinical status about the same and unchanged. Patient remains quite swollen and edematous. Remains on Lasix 80 mg IV push daily. WBC count is rising 21.3. Hemoglobin is 7.2. Basic metabolic profile is abnormal with low potassium and low sodium low bicarb elevated BUN of 76 creatinine 1.74. Ionized calcium is 5.6 ammonia level remains elevated at 171. Objective - Vital Signs Vital signs: Vital Signs Temp 98.0 F 08/26/22 12:00 Pulse 124 H 08/26/22 12:15 Resp 30 H 08/26/22 12:15 BP 99/52 08/19/22 16:39 Pulse Ox 83 L 08/26/22 11:20 FiO2 45 08/26/22 12:00 Intake & Output 08/25/22 08/26/22 08/26/22 18:59 06:59 18:59 Intake Total 3145.024 2247.836 1401.209 Output Total 408 436 2939 Balance 2575.024 1817.836 231.209 Weight 138.7 kg 140.9 kg Intake: IV 2602 1286 1213 0.9% @ KVO 40 200 20 Anidulafungin 100 mg In 100 Sodium Chloride 0.9% 100 ml @ 84 mls/hr IVPB DAILY [facility] Rx#:[id number] Anidulafungin 200 mg In 200 Sodium Chloride 0.9% 200 ml @ 84 mls/hr IVPB ONCE ONE Rx#:[id number] Calcium Gluconate in NaCl 100 1 gm In Saline 1 100ml. bag @ 100 mls/hr IVPB Q1H [facility] Rx#:[id number] Calcium Gluconate in NaCl 100 1 gm In Saline 1 100ml. bag @ 100 mls/hr IVPB Q1H [facility] Rx#:[id number] Ceftolozane/Tazobactam 0. 200 100 100 75 gm In Sodium Chloride 0.9% 100 ml @ 100 mls/hr IV Q8HR [facility] Rx#:[id number] DAPTOmycin 500 mg In 50 Sodium Chloride 0.9% 50 ml @ 100 mls/hr IVPB Q48H [facility] Rx#:[id number] Dextrose 5% in Water 1, 900 825 450 000 ml @ 75 mls/hr IV . [id number] [facility] with Sodium Bicarb (1 Meq/ml) 150 ml Rx#:[id number] Fat Emulsion 20% 250 ml 126 42 In Empty Bag 1 bag @ 21 mls/hr IV TuFr [facility] Rx#: [id number] Lacosamide IV 150 mg In 100 50 Sodium Chloride 0.9% 50 ml @ 100 mls/hr IVPB BID [facility] Rx#:[id number] Linezolid 600 mg In 300 Dextrose/Water 1 300ml. bag @ 150 mls/hr IVPB Q12H [facility] Rx#:[id number] Phenytoin Sodium Inj 1, 200 36 000 mg In Sodium Chloride 0.9% 100 ml @ 200 mls/hr IVPB [facility]CE [facility] Rx#: [id number] Phenytoin Sodium Inj 1, 100 000 mg In Sodium Chloride 0.9% 100 ml @ 200 mls/hr IVPB ONCE [facility] Rx#: [id number] Potassium Chloride 20 meq 250 In Water For Injection 1 100ml.bag @ 50 mls/hr IVPB Q2H [facility] Rx#: [id number] Pressure Bag 36 33 18 Sodium Acetate 30 meq 325 Potassium Chloride 30 meq Magnesium Sulfate gm 0.5 gm Calcium Gluconate 2 gm In Amino Acids 5 %/ Dextrose 20 % 1,000 ml @ 65 mls/hr IV .BY DURATION [facility] Rx#:[id number] levETIRAcetam IV 1,000 mg 100 In Saline 1 100ml.bag @ 400 mls/hr IVPB Q12HR [facility] Rx#:[id number] Intake, IV Titration 543.024 961.836 188.209 Amount Amiodarone 450 mg In 500 Dextrose 5% in Water 250 ml @ 1 MG/MIN 33.333 mls/ hr IV .Q7H30M [facility] Rx#: [id number] Midazolam HCl 50 mg In 78.917 42.9 70.267 Sodium Chloride 0.9% 40 ml @ 6 MG/HR 6 mls/hr IV .Q8H20M [facility] Rx#:[id number] Mvi, Adult No.4 with Vit 30 K 10 ml Trace (Conc-1Ml/ Dose) 1 ml Sodium Acetate 30 meq Potassium Chloride 20 meq Magnesium Sulfate gm 0.5 gm Calcium Gluconate 2 gm In Amino Acids 5 %/Dextrose 20 % 1,000 ml @ 30 mls/ hr IV .Q24H [facility] Rx#: [id number] Norepinephrine 32 mg In 434.107 248.658 117.942 Sodium Chloride 0.9% 218 ml @ 0.5 MCG/KG/MIN 25. 547 mls/hr IV .Q9H48M [facility] Rx#:[id number] Vasopressin 60 unit In 70.278 Sodium Chloride 0.9% 150 ml @ 0.04 UNITS/MIN 6.12 mls/hr IV .Q24H [facility] Rx#: [id number] levETIRAcetam IV 1,000 mg 100 In Saline 1 100ml.bag @ 400 mls/hr IVPB Q12HR [facility] Rx#:[id number] Output: Gastric Drainage 750 Urine 560 430 420 Estimated Blood Loss 10 Other: Voiding Method Indwelling Catheter Indwelling Catheter Indwelling Catheter ABP, PAP, CO, CI - Last Documented Arterial Blood Pressure 102/46 - Exam GENERAL EXAM: Intubated, sedated, 87-year-old morbidly obese female, sedated, not in distress intubated and mechanically ventilated HEAD: Normocephalic. Atraumatic. EYES: Sluggish reaction of pupils, equal size. NOSE: Nasogastric tube secured in place. Clear with pink turbinates. THROAT: Oral endotracheal tube in place. NECK: No masses, no JVD. CHEST: No chest wall deformity. LUNGS: Rhonchi and wheezes noted bilaterally today CVS: S1 and S2 normal with no audible murmur, irregular rhythm. ABDOMEN: Obese soft nontender, diminished bowel sounds, abdominal wall edema is noted. SKIN: No rashes CENTRAL NERVOUS SYSTEM: Sedated,Could not assess. EXTREMITIES: 3+ peripheral edema. Changes of chronic venous stasis. No clubbing - Labs CBC & Chem 7: 08/26/22 05:44 08/26/22 05:44 Labs: Abnormal Lab Results - Last 24 Hours (Table) 08/25/22 08/25/22 08/25/22 Range/Units 15:15 15:58 19:14 WBC (3.8-10.6) k/uL RBC (3.80-5.40) m/uL Hgb (11.4-16.0) gm/dL Hct (34.0-46.0) % MCHC (31.0-37.0) g/dL RDW (11.5-15.5) % Neutrophils # (Manual) (1.3-7.7) k/uL Nucleated RBCs (0-0) /100 WBC ABG pH 7.22 L (7.35-7.45) ABG pCO2 48 H (35-45) mmHg ABG pO2 305 H (83-108) mmHg ABG HCO3 20 L (21-25) mmol/L ABG O2 Saturation 99.1 H (94-97) % Sodium (137-145) mmol/L Potassium (3.5-5.1) mmol/L Chloride (98-107) mmol/L Carbon Dioxide (22-30) mmol/L BUN (7-17) mg/dL Creatinine (0.52-1.04) mg/dL Glucose (74-99) mg/dL POC Glucose (mg/dL) 201 H (70-110) mg/dL Calcium (8.4-10.2) mg/dL Ionized Calcium [place] (4.5-5.3) mg/dL Phosphorus (2.5-4.5) mg/dL AST (14-36) U/L Alkaline Phosphatase (38-126) U/L Ammonia 221 H (<30) umol/L Total Protein (6.3-8.2) g/dL Albumin (3.5-5.0) g/dL 08/25/22 08/26/22 08/26/22 Range/Units 21:02 00:02 04:34 WBC (3.8-10.6) k/uL RBC (3.80-5.40) m/uL Hgb (11.4-16.0) gm/dL Hct (34.0-46.0) % MCHC (31.0-37.0) g/dL RDW (11.5-15.5) % Neutrophils # (Manual) (1.3-7.7) k/uL Nucleated RBCs (0-0) /100 WBC ABG pH (7.35-7.45) ABG pCO2 (35-45) mmHg ABG pO2 (83-108) mmHg ABG HCO3 (21-25) mmol/L ABG O2 Saturation (94-97) % Sodium (137-145) mmol/L Potassium (3.5-5.1) mmol/L Chloride (98-107) mmol/L Carbon Dioxide (22-30) mmol/L BUN (7-17) mg/dL Creatinine (0.52-1.04) mg/dL Glucose (74-99) mg/dL POC Glucose (mg/dL) 324 H 415 H 424 H (70-110) mg/dL Calcium (8.4-10.2) mg/dL Ionized Calcium [place] (4.5-5.3) mg/dL Phosphorus (2.5-4.5) mg/dL AST (14-36) U/L Alkaline Phosphatase (38-126) U/L Ammonia (<30) umol/L Total Protein (6.3-8.2) g/dL Albumin (3.5-5.0) g/dL 08/26/22 08/26/22 08/26/22 Range/Units 05:44 05:44 05:44 WBC 21.3 H (3.8-10.6) k/uL RBC 2.79 L (3.80-5.40) m/uL Hgb 7.2 L (11.4-16.0) gm/dL Hct 24.4 L (34.0-46.0) % MCHC 29.4 L (31.0-37.0) g/dL RDW 18.0 H (11.5-15.5) % Neutrophils # (Manual) 20.00 H (1.3-7.7) k/uL Nucleated RBCs 5 H (0-0) /100 WBC ABG pH (7.35-7.45) ABG pCO2 (35-45) mmHg ABG pO2 (83-108) mmHg ABG HCO3 (21-25) mmol/L ABG O2 Saturation (94-97) % Sodium 132 L (137-145) mmol/L Potassium 3.0 L (3.5-5.1) mmol/L Chloride 97 L (98-107) mmol/L Carbon Dioxide 19 L (22-30) mmol/L BUN 76 H (7-17) mg/dL Creatinine 1.74 H (0.52-1.04) mg/dL Glucose 376 H (74-99) mg/dL POC Glucose (mg/dL) (70-110) mg/dL Calcium 5.6 L* (8.4-10.2) mg/dL Ionized Calcium [place] 3.7 L (4.5-5.3) mg/dL Phosphorus 6.3 H (2.5-4.5) mg/dL AST 57 H (14-36) U/L Alkaline Phosphatase 179 H (38-126) U/L Ammonia 171 H (<30) umol/L Total Protein 4.1 L (6.3-8.2) g/dL Albumin 1.6 L (3.5-5.0) g/dL 08/26/22 08/26/22 Range/Units 06:05 08:40 WBC (3.8-10.6) k/uL RBC (3.80-5.40) m/uL Hgb (11.4-16.0) gm/dL Hct (34.0-46.0) % MCHC (31.0-37.0) g/dL RDW (11.5-15.5) % Neutrophils # (Manual) (1.3-7.7) k/uL Nucleated RBCs (0-0) /100 WBC ABG pH 7.26 L (7.35-7.45) ABG pCO2 47 H (35-45) mmHg ABG pO2 (83-108) mmHg ABG HCO3 (21-25) mmol/L ABG O2 Saturation (94-97) % Sodium (137-145) mmol/L Potassium (3.5-5.1) mmol/L Chloride (98-107) mmol/L Carbon Dioxide (22-30) mmol/L BUN (7-17) mg/dL Creatinine (0.52-1.04) mg/dL Glucose (74-99) mg/dL POC Glucose (mg/dL) 401 H (70-110) mg/dL Calcium (8.4-10.2) mg/dL Ionized Calcium [place] (4.5-5.3) mg/dL Phosphorus (2.5-4.5) mg/dL AST (14-36) U/L Alkaline Phosphatase (38-126) U/L Ammonia (<30) umol/L Total Protein (6.3-8.2) g/dL Albumin (3.5-5.0) g/dL Microbiology - Last 24 Hours (Table) 08/23/22 11:40 Blood Culture Gram Stain - Final Blood Blood Culture - Final Enterococcus faecium VRE Assessment and Plan Assessment: Impression: Acute on chronic hypoxic respiratory failure Acute on chronic diastolic congestive heart failure Abdominal sepsis and septic shock Anion gap metabolic acidosis, improving but not resolved. Multifactorial. Urinary tract infection secondary to Enterococcus faecalis and pseudomonas aeruginosa bacteremia secondary to enterococcus faecium Systemic candidiasis with positive cultures for Ange. Atrial fibrillation with RVR requiring amiodarone drip Acute on chronic kidney disease Recent history of COVID-19 infection History of valvular heart disease with aortic stenosis, patient is an excellent set up for endocarditis Acute on chronic anemia History of underlying COPD History of diastolic congestive heart failure Recommendation: Updated on her condition today and made aware that there is not much of a change. Continue ventilatory support Add Solu-Medrol for her rhonchi and wheezing noted today on physical examinat ion. Continue hemodynamic support however would not recommend higher doses of norepinephrine and vasopressin, patient is maximized. Continue present supportive care measures Continue antibiotics as per infectious disease on the case. Continue GI and DVT prophylaxis continue lactulose Patient is critically ill Condition is futile We will continue to follow Critical care time is over 30 minutes Time with Patient: Greater than 30
[2022-08-26 13:01] LABS: Glucose,Whole Blood 393 mg/dL (70-110)
--- NOTE | 2022-08-26 13:26 | P.PN ---
Subjective Progress Note Date: 08/26/22 Principal diagnosis: Respiratory failure Patient remains on the ventilator. No issues with the tracheostomy. Patient has had persistent hypotension somewhat worse in the last 24 hours. Objective - Vital Signs Vital signs: Vital Signs Temp 98.0 F 08/26/22 12:00 Pulse 124 H 08/26/22 12:15 Resp 30 H 08/26/22 12:15 BP 99/52 08/19/22 16:39 Pulse Ox 83 L 08/26/22 11:20 FiO2 45 08/26/22 12:00 Intake & Output 08/25/22 08/26/22 08/26/22 18:59 06:59 18:59 Intake Total 3145.024 2247.836 1789.763 Output Total 847 279 5285 Balance 2575.024 1817.836 574.763 Weight 138.7 kg 140.9 kg Intake: IV 2602 1286 1456 0.9% @ KVO 40 200 20 Anidulafungin 100 mg In 100 Sodium Chloride 0.9% 100 ml @ 84 mls/hr IVPB DAILY [facility] Rx#:[id number] Anidulafungin 200 mg In 200 Sodium Chloride 0.9% 200 ml @ 84 mls/hr IVPB ONCE ONE Rx#:[id number] Calcium Gluconate in NaCl 100 1 gm In Saline 1 100ml. bag @ 100 mls/hr IVPB Q1H [facility] Rx#:[id number] Calcium Gluconate in NaCl 100 1 gm In Saline 1 100ml. bag @ 100 mls/hr IVPB Q1H [facility] Rx#:[id number] Calcium Gluconate in NaCl 100 2 gm In Saline 1 100ml. bag @ 100 mls/hr IVPB ONCE ONE Rx#:[id number] Ceftolozane/Tazobactam 0. 200 100 100 75 gm In Sodium Chloride 0.9% 100 ml @ 100 mls/hr IV Q8HR [facility] Rx#:[id number] DAPTOmycin 500 mg In 50 Sodium Chloride 0.9% 50 ml @ 100 mls/hr IVPB Q48H [facility] Rx#:[id number] Dextrose 5% in Water 1, 900 825 525 000 ml @ 75 mls/hr IV . [id number] [facility] with Sodium Bicarb (1 Meq/ml) 150 ml Rx#:[id number] Fat Emulsion 20% 250 ml 126 42 In Empty Bag 1 bag @ 21 mls/hr IV TuFr [facility] Rx#: [id number] Lacosamide IV 150 mg In 100 50 Sodium Chloride 0.9% 50 ml @ 100 mls/hr IVPB BID [facility] Rx#:[id number] Linezolid 600 mg In 300 Dextrose/Water 1 300ml. bag @ 150 mls/hr IVPB Q12H [facility] Rx#:[id number] Phenytoin Sodium Inj 1, 200 36 000 mg In Sodium Chloride 0.9% 100 ml @ 200 mls/hr IVPB ONCE [facility] Rx#: [id number] Phenytoin Sodium Inj 1, 100 000 mg In Sodium Chloride 0.9% 100 ml @ 200 mls/hr IVPB ONCE [facility] Rx#: [id number] Potassium Chloride 20 meq 250 In Water For Injection 1 100ml.bag @ 50 mls/hr IVPB Q2H [facility] Rx#: [id number] Pressure Bag 36 33 21 Sodium Acetate 30 meq 390 Potassium Chloride 30 meq Magnesium Sulfate gm 0.5 gm Calcium Gluconate 2 gm In Amino Acids 5 %/ Dextrose 20 % 1,000 ml @ 65 mls/hr IV .BY DURATION [facility] Rx#:[id number] levETIRAcetam IV 1,000 mg 100 In Saline 1 100ml.bag @ 400 mls/hr IVPB Q12HR [facility] Rx#:[id number] Intake, IV Titration 543.024 961.836 333.763 Amount Amiodarone 450 mg In 500 145.554 Dextrose 5% in Water 250 ml @ 1 MG/MIN 33.333 mls/ hr IV .Q7H30M [facility] Rx#: [id number] Midazolam HCl 50 mg In 78.917 42.9 70.267 Sodium Chloride 0.9% 40 ml @ 6 MG/HR 6 mls/hr IV .Q8H20M [facility] Rx#:[id number] Mvi, Adult No.4 with Vit 30 K 10 ml Trace (Conc-1Ml/ Dose) 1 ml Sodium Acetate 30 meq Potassium Chloride 20 meq Magnesium Sulfate gm 0.5 gm Calcium Gluconate 2 gm In Amino Acids 5 %/Dextrose 20 % 1,000 ml @ 30 mls/ hr IV .Q24H [facility] Rx#: [id number] Norepinephrine 32 mg In 434.107 248.658 117.942 Sodium Chloride 0.9% 218 ml @ 0.5 MCG/KG/MIN 25. 547 mls/hr IV .Q9H48M [facility] Rx#:[id number] Vasopressin 60 unit In 70.278 Sodium Chloride 0.9% 150 ml @ 0.04 UNITS/MIN 6.12 mls/hr IV .Q24H [facility] Rx#: [id number] levETIRAcetam IV 1,000 mg 100 In Saline 1 100ml.bag @ 400 mls/hr IVPB Q12HR [facility] Rx#:[id number] Output: Gastric Drainage 750 Urine 560 430 465 Estimated Blood Loss 10 Other: Voiding Method Indwelling Catheter Indwelling Catheter Indwelling Catheter ABP, PAP, CO, CI - Last Documented Arterial Blood Pressure 102/46 - Exam Tracheostomy site without evidence of erythema or drainage - Labs CBC & Chem 7: 08/26/22 05:44 08/26/22 05:44 Labs: Abnormal Lab Results - Last 24 Hours (Table) 08/25/22 08/25/22 08/25/22 Range/Units 15:15 15:58 19:14 WBC (3.8-10.6) k/uL RBC (3.80-5.40) m/uL Hgb (11.4-16.0) gm/dL Hct (34.0-46.0) % MCHC (31.0-37.0) g/dL RDW (11.5-15.5) % Neutrophils # (Manual) (1.3-7.7) k/uL Nucleated RBCs (0-0) /100 WBC ABG pH 7.22 L (7.35-7.45) ABG pCO2 48 H (35-45) mmHg ABG pO2 305 H (83-108) mmHg ABG HCO3 20 L (21-25) mmol/L ABG O2 Saturation 99.1 H (94-97) % Sodium (137-145) mmol/L Potassium (3.5-5.1) mmol/L Chloride (98-107) mmol/L Carbon Dioxide (22-30) mmol/L BUN (7-17) mg/dL Creatinine (0.52-1.04) mg/dL Glucose (74-99) mg/dL POC Glucose (mg/dL) 201 H (70-110) mg/dL Calcium (8.4-10.2) mg/dL Ionized Calcium [place] (4.5-5.3) mg/dL Phosphorus (2.5-4.5) mg/dL AST (14-36) U/L Alkaline Phosphatase (38-126) U/L Ammonia 221 H (<30) umol/L Total Protein (6.3-8.2) g/dL Albumin (3.5-5.0) g/dL 08/25/22 08/26/22 08/26/22 Range/Units 21:02 00:02 04:34 WBC (3.8-10.6) k/uL RBC (3.80-5.40) m/uL Hgb (11.4-16.0) gm/dL Hct (34.0-46.0) % MCHC (31.0-37.0) g/dL RDW (11.5-15.5) % Neutrophils # (Manual) (1.3-7.7) k/uL Nucleated RBCs (0-0) /100 WBC ABG pH (7.35-7.45) ABG pCO2 (35-45) mmHg ABG pO2 (83-108) mmHg ABG HCO3 (21-25) mmol/L ABG O2 Saturation (94-97) % Sodium (137-145) mmol/L Potassium (3.5-5.1) mmol/L Chloride (98-107) mmol/L Carbon Dioxide (22-30) mmol/L BUN (7-17) mg/dL Creatinine (0.52-1.04) mg/dL Glucose (74-99) mg/dL POC Glucose (mg/dL) 324 H 415 H 424 H (70-110) mg/dL Calcium (8.4-10.2) mg/dL Ionized Calcium [place] (4.5-5.3) mg/dL Phosphorus (2.5-4.5) mg/dL AST (14-36) U/L Alkaline Phosphatase (38-126) U/L Ammonia (<30) umol/L Total Protein (6.3-8.2) g/dL Albumin (3.5-5.0) g/dL 08/26/22 08/26/22 08/26/22 Range/Units 05:44 05:44 05:44 WBC 21.3 H (3.8-10.6) k/uL RBC 2.79 L (3.80-5.40) m/uL Hgb 7.2 L (11.4-16.0) gm/dL Hct 24.4 L (34.0-46.0) % MCHC 29.4 L (31.0-37.0) g/dL RDW 18.0 H (11.5-15.5) % Neutrophils # (Manual) 20.00 H (1.3-7.7) k/uL Nucleated RBCs 5 H (0-0) /100 WBC ABG pH (7.35-7.45) ABG pCO2 (35-45) mmHg ABG pO2 (83-108) mmHg ABG HCO3 (21-25) mmol/L ABG O2 Saturation (94-97) % Sodium 132 L (137-145) mmol/L Potassium 3.0 L (3.5-5.1) mmol/L Chloride 97 L (98-107) mmol/L Carbon Dioxide 19 L (22-30) mmol/L BUN 76 H (7-17) mg/dL Creatinine 1.74 H (0.52-1.04) mg/dL Glucose 376 H (74-99) mg/dL POC Glucose (mg/dL) (70-110) mg/dL Calcium 5.6 L* (8.4-10.2) mg/dL Ionized Calcium [place] 3.7 L (4.5-5.3) mg/dL Phosphorus 6.3 H (2.5-4.5) mg/dL AST 57 H (14-36) U/L Alkaline Phosphatase 179 H (38-126) U/L Ammonia 171 H (<30) umol/L Total Protein 4.1 L (6.3-8.2) g/dL Albumin 1.6 L (3.5-5.0) g/dL 08/26/22 08/26/22 08/26/22 Range/Units 06:05 08:40 12:59 WBC (3.8-10.6) k/uL RBC (3.80-5.40) m/uL Hgb (11.4-16.0) gm/dL Hct (34.0-46.0) % MCHC (31.0-37.0) g/dL RDW (11.5-15.5) % Neutrophils # (Manual) (1.3-7.7) k/uL Nucleated RBCs (0-0) /100 WBC ABG pH 7.26 L (7.35-7.45) ABG pCO2 47 H (35-45) mmHg ABG pO2 (83-108) mmHg ABG HCO3 (21-25) mmol/L ABG O2 Saturation (94-97) % Sodium (137-145) mmol/L Potassium (3.5-5.1) mmol/L Chloride (98-107) mmol/L Carbon Dioxide (22-30) mmol/L BUN (7-17) mg/dL Creatinine (0.52-1.04) mg/dL Glucose (74-99) mg/dL POC Glucose (mg/dL) 401 H 393 H (70-110) mg/dL Calcium (8.4-10.2) mg/dL Ionized Calcium [place] (4.5-5.3) mg/dL Phosphorus (2.5-4.5) mg/dL AST (14-36) U/L Alkaline Phosphatase (38-126) U/L Ammonia (<30) umol/L Total Protein (6.3-8.2) g/dL Albumin (3.5-5.0) g/dL Microbiology - Last 24 Hours (Table) 08/23/22 11:40 Blood Culture Gram Stain - Final Blood Blood Culture - Final Enterococcus faecium VRE Assessment and Plan (1) Acute exacerbation of chronic obstructive pulmonary disease Narrative/Plan: Patient remains on the ventilator and hemodynamically unstable. Patient is a no code at this time. Continue supportive care. Current Visit: Yes Status: Acute Code(s): J44.1 - CHRONIC OBSTRUCTIVE PULMONARY DISEASE W (ACUTE) EXACERBATION SNOMED Code(s): 438163233
[2022-08-26] MEDS: PHENYTOIN SODIUM INJ 300 MG in SODIUM CHLORIDE 0.9% 50 ML IVPB SCH (14:15)
[2022-08-26] MEDS: MAGNESIUM SULFATE-D5W PMX 1 GM in DEXTROSE/WATER 1 100ML.BAG IVPB SCH ×2 (15:30→17:49)
[2022-08-26 17:03] LABS: Glucose,Whole Blood 475 mg/dL (70-110)
--- NOTE | 2022-08-26 18:03 | P.PN ---
Subjective Progress Note Date: 08/26/22 08/26/2022: Patient was seen for a follow-up. Patient is clinically unchanged. However the seizure-like activity involving right shoulder has completely resolved. Patient currently on Versed 7 mg/h drip. Also on amiodarone, norepinephrine 0.47 mcg/mg per hour, vasopressin 0.04 units per minute. Also on bicarbonate drip. Patient has not had PEG tube placed yet. Patient's believes that when the PEG tube is placed, she will get nutrition and she will get better. Also discussed with patient's daughter and her , who was sitting in the waiting area. 08/25/2022: Patient was seen for a follow-up. Patient's and patient's daughter were both present. Patient continues to be comatose. She has intermittent rhythmic twitching of the right shoulder. Patient is already on high dose Keppra, Vimpat adjusted to her renal functions, and Versed drip. Celestino wilson already has received Dilantin 1 g IV PB and she is still twitching in the right shoulder. Dilantin level came as 4.5. Patient will receive another loading dose of Dilantin 1 g. Target Dilantin level 12-20. Patient's toes are getting more dusky. Patient has developed some blisters, but that happened before she received Dilantin, therefore not related to Dilantin ALLERGY. Patient has generalized anasarca. 08/24/2022: Patient was seen for a follow-up. Patient is undergoing EEG at this time. Patient continues to have PLEDS. Patient was given Ativan 2 mg without much improvement, then repeated at another 2 mg Ativan. Patient subsequently received Versed 5 mg IV push without improvement, started on Versed drip 5 mg per hour. Patient states on pressors with vasopressin and Levophed. Patient continues to be comatose. Occasional twitching of the right shoulder noticed. I had discussed case with Dr. Hagen yesterday after he reported abnormal prolonged EEG about transfer patient to [facility], but he mentioned that beds were not available. 08/23/2022: Patient was seen for a follow-up. Patient is intubated, not on any sedation. She is on full pressors with Levophed and vasopressin. Also on 3 antibiotics, anti-seizure medications including Keppra and Vimpat. Patient had sporadic seizure-like activity with facial twitching. No definite arm twitching noted. Episode lasted for about 30 minutes. At present there is no twitching noticeable. Patient's and grandchildren were present today. 08/22/2022: Patient was seen for a follow-up. Patient's daughter was also present today. Patient recently had temperature of 100.3. About an hour prior to spiking temperature, patient had some facial twitching, with jaw opening and closing, that lasted for half an hour. No upper extremity movement was noted at that time. Patient continues to be on Keppra 750 mg twice a day. Patient continues to be on high-dose pressors. Patient at present is no code, but full medical treatment. 08/21/2022: Patient initially seen by Dr. Edouard Peres. Please refer to his note for details. Patient is an 87-year-old female with altered mental status. Patient has septic encephalopathy. Patient had a seizure-like activity yesterday at 1:15 PM with head jerking and left arm jerking. Patient was given Ativan 4 mg, and the seizure-like stopped. Patient was given a loading dose of Keppra 1000 mg IV and then maintained on 500 mg twice a day. Patient had again seizure-like activity at 3 AM lasted for 45 minutes and then 5 AM and patient was given another load ing dose of 500 mg Keppra. Nurse called me today at around 7:30 AM. It lasted for 20-30 minutes. Patient was again given Valium 4 mg in the seizure-like activity resolved. Patient was started on Vimpat 100 mg twice a day IV PB. EEG was performed today, which was abnormal sleep EEG due to background slowing of moderate degree. Some sharply contoured waves were seen in the left parietal region. No clear-cut epileptiform activity was seen. Objective - Vital Signs Vital signs: Vital Signs Temp 98.0 F 08/26/22 12:00 Pulse 124 H 08/26/22 12:15 Resp 30 H 08/26/22 12:15 BP 99/52 08/19/22 16:39 Pulse Ox 83 L 08/26/22 11:20 FiO2 45 08/26/22 12:00 Intake & Output 08/25/22 08/26/22 08/26/22 18:59 06:59 18:59 Intake Total 3145.024 2247.836 1401.209 Output Total 440 126 4642 Balance 2575.024 1817.836 231.209 Weight 138.7 kg 140.9 kg Intake: IV 2602 1286 1213 0.9% @ KVO 40 200 20 Anidulafungin 100 mg In 100 Sodium Chloride 0.9% 100 ml @ 84 mls/hr IVPB DAILY [facility] Rx#:[id number] Anidulafungin 200 mg In 200 Sodium Chloride 0.9% 200 ml @ 84 mls/hr IVPB ONCE ONE Rx#:[id number] Calcium Gluconate in NaCl 100 1 gm In Saline 1 100ml. bag @ 100 mls/hr IVPB Q1H [facility] Rx#:[id number] Calcium Gluconate in NaCl 100 1 gm In Saline 1 100ml. bag @ 100 mls/hr IVPB Q1H [facility] Rx#:[id number] Ceftolozane/Tazobactam 0. 200 100 100 75 gm In Sodium Chloride 0.9% 100 ml @ 100 mls/hr IV Q8HR [facility] Rx#:[id number] DAPTOmycin 500 mg In 50 Sodium Chloride 0.9% 50 ml @ 100 mls/hr IVPB Q48H [facility] Rx#:[id number] Dextrose 5% in Water 1, 900 825 450 000 ml @ 75 mls/hr IV . [id number] [facility] with Sodium Bicarb (1 Meq/ml) 150 ml Rx#:[id number] Fat Emulsion 20% 250 ml 126 42 In Empty Bag 1 bag @ 21 mls/hr IV TuFr [facility] Rx#: [id number] Lacosamide IV 150 mg In 100 50 Sodium Chloride 0.9% 50 ml @ 100 mls/hr IVPB BID [facility] Rx#:[id number] Linezolid 600 mg In 300 Dextrose/Water 1 300ml. bag @ 150 mls/hr IVPB Q12H [facility] Rx#:[id number] Phenytoin Sodium Inj 1, 200 36 000 mg In Sodium Chloride 0.9% 100 ml @ 200 mls/hr IVPB ONCE [facility] Rx#: [id number] Phenytoin Sodium Inj 1, 100 000 mg In Sodium Chloride 0.9% 100 ml @ 200 mls/hr IVPB ONCE [facility] Rx#: [id number] Potassium Chloride 20 meq 250 In Water For Injection 1 100ml.bag @ 50 mls/hr IVPB Q2H [facility] Rx#: [id number] Pressure Bag 36 33 18 Sodium Acetate 30 meq 325 Potassium Chloride 30 meq Magnesium Sulfate gm 0.5 gm Calcium Gluconate 2 gm In Amino Acids 5 %/ Dextrose 20 % 1,000 ml @ 65 mls/hr IV .BY DURATION [facility] Rx#:[id number] levETIRAcetam IV 1,000 mg 100 In Saline 1 100ml.bag @ 400 mls/hr IVPB Q12HR [facility] Rx#:[id number] Intake, IV Titration 543.024 961.836 188.209 Amount Amiodarone 450 mg In 500 Dextrose 5% in Water 250 ml @ 1 MG/MIN 33.333 mls/ hr IV .Q7H30M [facility] Rx#: [id number] Midazolam HCl 50 mg In 78.917 42.9 70.267 Sodium Chloride 0.9% 40 ml @ 6 MG/HR 6 mls/hr IV .Q8H20M [facility] Rx#:[id number] Mvi, Adult No.4 with Vit 30 K 10 ml Trace (Conc-1Ml/ Dose) 1 ml Sodium Acetate 30 meq Potassium Chloride 20 meq Magnesium Sulfate gm 0.5 gm Calcium Gluconate 2 gm In Amino Acids 5 %/Dextrose 20 % 1,000 ml @ 30 mls/ hr IV .Q24H [facility] Rx#: [id number] Norepinephrine 32 mg In 434.107 248.658 117.942 Sodium Chloride 0.9% 218 ml @ 0.5 MCG/KG/MIN 25. 547 mls/hr IV .Q9H48M [facility] Rx#:[id number] Vasopressin 60 unit In 70.278 Sodium Chloride 0.9% 150 ml @ 0.04 UNITS/MIN 6.12 mls/hr IV .Q24H [facility] Rx#: [id number] levETIRAcetam IV 1,000 mg 100 In Saline 1 100ml.bag @ 400 mls/hr IVPB Q12HR [facility] Rx#:[id number] Output: Gastric Drainage 750 Urine 560 430 420 Estimated Blood Loss 10 Other: Voiding Method Indwelling Catheter Indwelling Catheter Indwelling Catheter ABP, PAP, CO, CI - Last Documented Arterial Blood Pressure 102/46 - Exam Patient is an elderly female, who is comatose. Patient is not on any sedation. Sedation discontinued since 08/16/2022. Patient does not respond to painful stimuli or calling out loudly. No focal seizure noted involving right shoulder. No twitching of the facial region. Pupils are equal, round and reacting bilaterally. Oculocephalics are absent, corneals absent. Reflexes ar e almost absent. Patient has significant peripheral edema. Patient's fingers and toes are getting more dusky, cyanotic as compared to yesterday. Seems to be getting slightly worse. - Labs CBC & Chem 7: 08/26/22 05:44 08/26/22 16:59 Labs: Abnormal Lab Results - Last 24 Hours (Table) 08/25/22 08/25/22 08/25/22 Range/Units 15:15 15:58 19:14 WBC (3.8-10.6) k/uL RBC (3.80-5.40) m/uL Hgb (11.4-16.0) gm/dL Hct (34.0-46.0) % MCHC (31.0-37.0) g/dL RDW (11.5-15.5) % Neutrophils # (Manual) (1.3-7.7) k/uL Nucleated RBCs (0-0) /100 WBC ABG pH 7.22 L (7.35-7.45) ABG pCO2 48 H (35-45) mmHg ABG pO2 305 H (83-108) mmHg ABG HCO3 20 L (21-25) mmol/L ABG O2 Saturation 99.1 H (94-97) % Sodium (137-145) mmol/L Potassium (3.5-5.1) mmol/L Chloride (98-107) mmol/L Carbon Dioxide (22-30) mmol/L BUN (7-17) mg/dL Creatinine (0.52-1.04) mg/dL Glucose (74-99) mg/dL POC Glucose (mg/dL) 201 H (70-110) mg/dL Calcium (8.4-10.2) mg/dL Ionized Calcium [place] (4.5-5.3) mg/dL Phosphorus (2.5-4.5) mg/dL AST (14-36) U/L Alkaline Phosphatase (38-126) U/L Ammonia 221 H (<30) umol/L Total Protein (6.3-8.2) g/dL Albumin (3.5-5.0) g/dL 08/25/22 08/26/22 08/26/22 Range/Units 21:02 00:02 04:34 WBC (3.8-10.6) k/uL RBC (3.80-5.40) m/uL Hgb (11.4-16.0) gm/dL Hct (34.0-46.0) % MCHC (31.0-37.0) g/dL RDW (11.5-15.5) % Neutrophils # (Manual) (1.3-7.7) k/uL Nucleated RBCs (0-0) /100 WBC ABG pH (7.35-7.45) ABG pCO2 (35-45) mmHg ABG pO2 (83-108) mmHg ABG HCO3 (21-25) mmol/L ABG O2 Saturation (94-97) % Sodium (137-145) mmol/L Potassium (3.5-5.1) mmol/L Chloride (98-107) mmol/L Carbon Dioxide (22-30) mmol/L BUN (7-17) mg/dL Creatinine (0.52-1.04) mg/dL Glucose (74-99) mg/dL POC Glucose (mg/dL) 324 H 415 H 424 H (70-110) mg/dL Calcium (8.4-10.2) mg/dL Ionized Calcium [place] (4.5-5.3) mg/dL Phosphorus (2.5-4.5) mg/dL AST (14-36) U/L Alkaline Phosphatase (38-126) U/L Ammonia (<30) umol/L Total Protein (6.3-8.2) g/dL Albumin (3.5-5.0) g/dL 08/26/22 08/26/22 08/26/22 Range/Units 05:44 05:44 05:44 WBC 21.3 H (3.8-10.6) k/uL RBC 2.79 L (3.80-5.40) m/uL Hgb 7.2 L (11.4-16.0) gm/dL Hct 24.4 L (34.0-46.0) % MCHC 29.4 L (31.0-37.0) g/dL RDW 18.0 H (11.5-15.5) % Neutrophils # (Manual) 20.00 H (1.3-7.7) k/uL Nucleated RBCs 5 H (0-0) /100 WBC ABG pH (7.35-7.45) ABG pCO2 (35-45) mmHg ABG pO2 (83-108) mmHg ABG HCO3 (21-25) mmol/L ABG O2 Saturation (94-97) % Sodium 132 L (137-145) mmol/L Potassium 3.0 L (3.5-5.1) mmol/L Chloride 97 L (98-107) mmol/L Carbon Dioxide 19 L (22-30) mmol/L BUN 76 H (7-17) mg/dL Creatinine 1.74 H (0.52-1.04) mg/dL Glucose 376 H (74-99) mg/dL POC Glucose (mg/dL) (70-110) mg/dL Calcium 5.6 L* (8.4-10.2) mg/dL Ionized Calcium [place] 3.7 L (4.5-5.3) mg/dL Phosphorus 6.3 H (2.5-4.5) mg/dL AST 57 H (14-36) U/L Alkaline Phosphatase 179 H (38-126) U/L Ammonia 171 H (<30) umol/L Total Protein 4.1 L (6.3-8.2) g/dL Albumin 1.6 L (3.5-5.0) g/dL 08/26/22 08/26/22 Range/Units 06:05 08:40 WBC (3.8-10.6) k/uL RBC (3.80-5.40) m/uL Hgb (11.4-16.0) gm/dL Hct (34.0-46.0) % MCHC (31.0-37.0) g/dL RDW (11.5-15.5) % Neutrophils # (Manual) (1.3-7.7) k/uL Nucleated RBCs (0-0) /100 WBC ABG pH 7.26 L (7.35-7.45) ABG pCO2 47 H (35-45) mmHg ABG pO2 (83-108) mmHg ABG HCO3 (21-25) mmol/L ABG O2 Saturation (94-97) % Sodium (137-145) mmol/L Potassium (3.5-5.1) mmol/L Chloride (98-107) mmol/L Carbon Dioxide (22-30) mmol/L BUN (7-17) mg/dL Creatinine (0.52-1.04) mg/dL Glucose (74-99) mg/dL POC Glucose (mg/dL) 401 H (70-110) mg/dL Calcium (8.4-10.2) mg/dL Ionized Calcium [place] (4.5-5.3) mg/dL Phosphorus (2.5-4.5) mg/dL AST (14-36) U/L Alkaline Phosphatase (38-126) U/L Ammonia (<30) umol/L Total Protein (6.3-8.2) g/dL Albumin (3.5-5.0) g/dL Microbiology - Last 24 Hours (Table) 08/23/22 11:40 Blood Culture Gram Stain - Final Blood Blood Culture - Final Enterococcus faecium VRE Assessment and Plan Assessment: Altered mental status multifactorial as mentioned below. Patient primarily has septic encephalopathy. Also has some component of metabolic encephalopathy. Has been off sedation for 8 days. Abnormal prolonged 2.5 hours EEG, with evidence of runs of 1 Hz LPDs plus there was lateralized periodic discharges, sharp and slow and poly-sharp and slow waves over the left parietal region with spread more anteriorly. There are also some discharges semi-periodic LPDs over the right posterior quadrants. Probable perforated viscus with pneumoperitoneum. Septicemia, with leukocytosis and blood culture persistently positive with enterococcus faecium. Blood cultures positive as of 08/23/2022. White cells slightly worse today 21,000. Hepatic encephalopathy with initial elevated ammonia 214, repeat yesterday 210, and today is 150. Septic shock requiring high-dose pressors and seems has urinary tract infection with urine culture positive for Enterococcus faecalis and Pseudomonas aeruginosa as well as systemic candidiasis Atrial fibrillation on eliquis (which has hx of afib) , currently on hold. Acute on chronic hypoxemic respiratory failure secondary to diastolic congestive heart failure requiring intubation mechanical ventilation Acute on chronic kidney disease History of TIAs/stroke History of coronary artery disease with stent Hypertension Hyperlipidemia Diabetes mellitus Anemia Hypocalcemia Plan: * Clinically it appears partial status has resolved. No focal twitches noticed at this time. * Patient already on high dose Vimpat 150 mg twice a day, Keppra 1000 mg twice a day (both of them adjusted for current renal functions). Also on Versed 7 mg per hour. Patient also on Dilantin. Her Dilantin level was < 3 today. Patient received another loading dose of Dilantin 1 g. Maintenance dose increased to 300 mg twice a day. We will recheck Dilantin level in the morning. Await Keppra level. Cannot give Depakote because of hyperammonemia. * Continue Ativan 1-2 mg every 4 hours when necessary seizure. Patient also on Versed drip 7 mg per hour. * Prolonged 2.5 hours EEG on 08/24/2022 was abnormal with evidence of runs of 1 Hz LPDs plus there was lateralized periodic discharges, sharp and slow and poly-sharp and slow waves over the left parietal region with spread more anteriorly. There are also some discharges semi-periodic LPDs over the right posterior quadrants. Exact cause remains uncertain. * Repeat CT head 08/24/2022, which did not reveal any acute intracranial process. However there is possible bilateral mastoiditis and middle ear infections spread. Correlate clinically. Patchy paranasal sinus disease. I personally reviewed CT head, and there is evidence of air-fluid level in the left maxillary sinus. Agree with evidence of possible bilateral mastoiditis and fluid in the middle ear. I discussed with PCP about possibility of lumbar puncture. ID is also on board. Patient currently on Eraxis, Zerbaxa, daptomycin. Per ID, patient is already covered well for meningitis. * Patient's initial Ammonia was 214. Today is 171. Patient on lactulose. * CT abdomen revealed possibility of perforated viscus. Surgery on board. Patient was considered not a candidate for surgery because of hemodynamic instability. * Patient is on high dose pressors * Hypocalcemia can also be associated with seizures. Recommend appropriate treatment as per IM and critical care. * We'll defer the rest of medical management to primary and ICU team * The patient condition is very critical. Prognosis appears very guarded to poor at this time. * Plan discussed with the patient's family.
[2022-08-26 20:59] LABS: Glucose,Whole Blood 466 mg/dL (70-110)
[2022-08-26] MEDS: POTASSIUM BICARBONATE/CIT AC 20 MEQ TABLET.EFF NG-TUBE SCH (21:52)
[2022-08-26] MEDS: VASOPRESSIN 60 UNIT in SODIUM CHLORIDE 0.9% 150 ML IV SCH (21:59)
[2022-08-27] MEDS: AMIODARONE 450 MG in DEXTROSE 5% IN WATER 250 ML IV SCH ×4 (00:22→10:10)
[2022-08-27] MEDS: methylPREDNISolone SOD SUCCI 40 MG/ML 1 ML VIAL IV SCH ×4 (00:27→23:54)
[2022-08-27] MEDS: POTASSIUM BICARBONATE/CIT AC 20 MEQ TABLET.EFF NG-TUBE SCH (00:27)
[2022-08-27 00:43] LABS: Glucose,Whole Blood 389 mg/dL (70-110)
[2022-08-27] MEDS: INSULIN ASPART (NovoLOG) 100 UNIT/ML VIAL SQ SCH ×3 (00:44→09:29)
[2022-08-27] MEDS: PHENYTOIN SODIUM INJ 300 MG in SODIUM CHLORIDE 0.9% 50 ML IVPB SCH ×3 (00:45→23:41)
[2022-08-27] MEDS: LINEZOLID 600 MG in DEXTROSE/WATER 1 300ML.BAG IVPB SCH ×3 (01:27→23:54)
[2022-08-27] MEDS: CEFTOLOZANE/TAZOBACTAM 0.75 GM in SODIUM CHLORIDE 0.9% 100 ML IV SCH ×4 (01:28→23:38)
[2022-08-27 04:18] LABS: Glucose,Whole Blood 489 mg/dL (70-110)
[2022-08-27] MEDS: MIDAZOLAM HCL 50 MG in SODIUM CHLORIDE 0.9% 40 ML IV SCH ×4 (04:20→22:50)
[2022-08-27 05:32] LABS: ABG Base Excess -2.7 mmol/L; ABG HCO3 24 mmol/L (21-25); ABG Oxygen Saturation 97.4 % (94-97); ABG PCO2 48 mmHg (35-45); ABG PO2 100 mmHg (83-108); ABG TCO2 25 mmol/L (19-24)
[2022-08-27 05:34] LABS: Allen Test Performed? no
[2022-08-27 06:17] LABS: Glucose,Whole Blood 483 mg/dL (70-110)
[2022-08-27] MEDS: INSULIN DETEMIR (LEVEMIR) 100 UNIT/ML SYR SQ SCH (06:32)
[2022-08-27 06:36] LABS: Phenytoin (Dilantin) 6.4 ug/mL
[2022-08-27 06:50] LABS: Albumin 1.6 g/dL (3.5-5.0); Magnesium 1.7 mg/dL (1.6-2.3); Phosphorus 4.9 mg/dL (2.5-4.5); Potassium 3.1 mmol/L (3.5-5.1); Total Bilirubin 0.3 mg/dL (0.2-1.3); Total Protein 4.2 g/dL (6.3-8.2)
[2022-08-27 06:57] LABS: Calcium 6.1 mg/dL (8.4-10.2)
[2022-08-27] MEDS ORDERED: Potassium Replacement Protocol 1 EACH MISC MISCELLANE PRN (07:24)
[2022-08-27] MEDS: FUROSEMIDE 10 MG/ML 10 ML VIAL IV SCH (07:58)
[2022-08-27] MEDS: POTASSIUM BICARBONATE/CIT AC 20 MEQ TABLET.EFF PO SCH ×3 (07:58→13:06)
[2022-08-27] MEDS: PANTOPRAZOLE 40 MG/10 ML VIAL IVP SCH (07:58)
[2022-08-27] MEDS: LACTULOSE 20 GM/30 ML CUP PO SCH ×4 (08:05→20:23)
[2022-08-27] MEDS: TAMSULOSIN 0.4 MG CAP.ER.24H PO SCH (08:06)
[2022-08-27] MEDS: MAGNESIUM SULFATE-D5W PMX 1 GM in DEXTROSE/WATER 1 100ML.BAG IVPB SCH ×2 (08:06→11:44)
[2022-08-27] MEDS ORDERED: CALCIUM GLUCONATE IN NACL 2 GM in SALINE 1 100ML.BAG IVPB ONE (08:30)
[2022-08-27] MEDS: ANIDULAFUNGIN 100 MG in SODIUM CHLORIDE 0.9% 100 ML IVPB SCH (08:36)
[2022-08-27 09:15] LABS: Glucose,Whole Blood 311 mg/dL (70-110)
[2022-08-27] MEDS: NOREPINEPHRINE 32 MG in SODIUM CHLORIDE 0.9% 218 ML IV SCH ×3 (09:15→18:04)
[2022-08-27] MEDS: IPRATROPIUM 0.5 MG/2.5 ML NEBU INHALATION SCH ×4 (09:30→19:29)
[2022-08-27] MEDS: ALBUTEROL NEBULIZED 2.5 MG/3 ML INHALATION SCH ×4 (09:30→19:30)
[2022-08-27] MEDS: BUDESONIDE 1 MG/2 ML NEBU INHALATION SCH ×2 (09:30→19:30)
[2022-08-27] MEDS: FORMOTEROL FUMARATE 20 MCG/2 ML NEBU INHALATION SCH ×2 (09:32→19:30)
--- NOTE | 2022-08-27 09:34 | P.PN ---
Subjective Progress Note Date: 08/27/22 Principal diagnosis: Respiratory failure Patient stable on the ventilator. Tolerating TPN at goal. Pressor requirements are decreased today. Objective - Vital Signs Vital signs: Vital Signs Temp 97.8 F 08/27/22 08:00 Pulse 117 H 08/27/22 09:30 Resp 30 H 08/27/22 09:30 BP 136/87 08/27/22 09:00 Pulse Ox 89 L 08/27/22 09:00 FiO2 45 08/27/22 09:20 Intake & Output 08/26/22 08/27/22 08/27/22 18:59 06:59 18:59 Intake Total 3036.821 2369.818 474.232 Output Total 1540 695 75 Balance 4446.164 8343.818 399.232 Weight 140.9 kg 146.5 kg Intake: IV 2571 1861 321 0.9% @ KVO 20 110 10 Anidulafungin 100 mg In 100 Sodium Chloride 0.9% 100 ml @ 84 mls/hr IVPB DAILY [facility] Rx#:[id number] Calcium Gluconate in NaCl 100 2 gm In Saline 1 100ml. bag @ 100 mls/hr IVPB ONCE ONE Rx#:[id number] Ceftolozane/Tazobactam 0. 100 100 75 gm In Sodium Chloride 0.9% 100 ml @ 100 mls/hr IV Q8HR [facility] Rx#:[id number] Dextrose 5% in Water 1, 900 525 75 000 ml @ 75 mls/hr IV . [id number] [facility] with Sodium Bicarb (1 Meq/ml) 150 ml Rx#:[id number] Lacosamide IV 150 mg In 50 Sodium Chloride 0.9% 50 ml @ 100 mls/hr IVPB BID [facility] Rx#:[id number] Linezolid 600 mg In 300 150 Dextrose/Water 1 300ml. bag @ 150 mls/hr IVPB Q12H [facility] Rx#:[id number] Magnesium Sulfate-D5w Pmx 100 10 100 1 gm In Dextrose/Water 1 100ml.bag @ 100 mls/hr IVPB Q1H [facility] Rx#: [id number] Phenytoin Sodium Inj 1, 100 000 mg In Sodium Chloride 0.9% 100 ml @ 200 mls/hr IVPB ONCE [facility] Rx#: [id number] Pressure Bag 36 36 6 Sodium Acetate 30 meq 715 780 130 Potassium Chloride 30 meq Magnesium Sulfate gm 0.5 gm Calcium Gluconate 2 gm In Amino Acids 5 %/ Dextrose 20 % 1,000 ml @ 65 mls/hr IV .BY DURATION [facility] Rx#:[id number] levETIRAcetam IV 1,000 mg 100 100 In Saline 1 100ml.bag @ 400 mls/hr IVPB Q12HR [facility] Rx#:[id number] Intake, IV Titration 465.821 508.818 153.232 Amount Amiodarone 450 mg In 145.554 329.999 Dextrose 5% in Water 250 ml @ 1 MG/MIN 33.333 mls/ hr IV .Q7H30M [facility] Rx#: [id number] Midazolam HCl 50 mg In 70.267 97.017 34.65 Sodium Chloride 0.9% 40 ml @ 6 MG/HR 6 mls/hr IV .Q8H20M [facility] Rx#:[id number] Norepinephrine 32 mg In 250.000 81.802 118.582 Sodium Chloride 0.9% 218 ml @ 0.5 MCG/KG/MIN 25. 547 mls/hr IV .Q9H48M [facility] Rx#:[id number] Output: Gastric Drainage 750 Urine 790 695 75 Other: Voiding Method Indwelling Catheter Indwelling Catheter ABP, PAP, CO, CI - Last Documented Arterial Blood Pressure 146/132 - Exam Tracheostomy site without evidence of erythema or drainage - Labs CBC & Chem 7: 08/26/22 05:44 08/27/22 05:50 Labs: Abnormal Lab Results - Last 24 Hours (Table) 08/26/22 08/26/22 08/26/22 Range/Units 12:59 16:59 17:02 ABG pH (7.35-7.45) ABG pCO2 (35-45) mmHg ABG Total CO2 (19-24) mmol/L ABG O2 Saturation (94-97) % Sodium (137-145) mmol/L Potassium 3.3 L (3.5-5.1) mmol/L Chloride (98-107) mmol/L BUN (7-17) mg/dL Creatinine (0.52-1.04) mg/dL Glucose (74-99) mg/dL POC Glucose (mg/dL) 393 H 475 H (70-110) mg/dL Calcium (8.4-10.2) mg/dL Ionized Calcium [place] (4.5-5.3) mg/dL Phosphorus (2.5-4.5) mg/dL AST (14-36) U/L Alkaline Phosphatase (38-126) U/L Total Protein (6.3-8.2) g/dL Albumin (3.5-5.0) g/dL 08/26/22 08/27/22 08/27/22 Range/Units 20:58 00:41 04:15 ABG pH (7.35-7.45) ABG pCO2 (35-45) mmHg ABG Total CO2 (19-24) mmol/L ABG O2 Saturation (94-97) % Sodium (137-145) mmol/L Potassium (3.5-5.1) mmol/L Chloride (98-107) mmol/L BUN (7-17) mg/dL Creatinine (0.52-1.04) mg/dL Glucose (74-99) mg/dL POC Glucose (mg/dL) 466 H 389 H 489 H (70-110) mg/dL Calcium (8.4-10.2) mg/dL Ionized Calcium [place] (4.5-5.3) mg/dL Phosphorus (2.5-4.5) mg/dL AST (14-36) U/L Alkaline Phosphatase (38-126) U/L Total Protein (6.3-8.2) g/dL Albumin (3.5-5.0) g/dL 08/27/22 08/27/22 08/27/22 Range/Units 05:31 05:50 05:50 ABG pH 7.30 L (7.35-7.45) ABG pCO2 48 H (35-45) mmHg ABG Total CO2 25 H (19-24) mmol/L ABG O2 Saturation 97.4 H (94-97) % Sodium 131 L (137-145) mmol/L Potassium 3.1 L (3.5-5.1) mmol/L Chloride 96 L (98-107) mmol/L BUN 75 H (7-17) mg/dL Creatinine 1.82 H (0.52-1.04) mg/dL Glucose 423 H (74-99) mg/dL POC Glucose (mg/dL) (70-110) mg/dL Calcium 6.1 L* (8.4-10.2) mg/dL Ionized Calcium [place] 4.0 L (4.5-5.3) mg/dL Phosphorus 4.9 H (2.5-4.5) mg/dL AST 42 H (14-36) U/L Alkaline Phosphatase 177 H (38-126) U/L Total Protein 4.2 L (6.3-8.2) g/dL Albumin 1.6 L (3.5-5.0) g/dL 08/27/22 08/27/22 Range/Units 06:14 09:13 ABG pH (7.35-7.45) ABG pCO2 (35-45) mmHg ABG Total CO2 (19-24) mmol/L ABG O2 Saturation (94-97) % Sodium (137-145) mmol/L Potassium (3.5-5.1) mmol/L Chloride (98-107) mmol/L BUN (7-17) mg/dL Creatinine (0.52-1.04) mg/dL Glucose (74-99) mg/dL POC Glucose (mg/dL) 483 H 311 H (70-110) mg/dL Calcium (8.4-10.2) mg/dL Ionized Calcium [place] (4.5-5.3) mg/dL Phosphorus (2.5-4.5) mg/dL AST (14-36) U/L Alkaline Phosphatase (38-126) U/L Total Protein (6.3-8.2) g/dL Albumin (3.5-5.0) g/dL Microbiology - Last 24 Hours (Table) 08/23/22 11:40 Blood Culture Gram Stain - Final Blood Blood Culture - Final Enterococcus faecium VRE Assessment and Plan (1) Acute exacerbation of chronic obstructive pulmonary disease Narrative/Plan: Patient doing better today. Will schedule for tentative EGD with PEG tube placement tomorrow. Dr. Head we'll reassess patient's condition tomorrow morning and decide whether to proceed at this time or not. Current Visit: Yes Status: Acute Code(s): J44.1 - CHRONIC OBSTRUCTIVE PULMONARY DISEASE W (ACUTE) EXACERBATION SNOMED Code(s): 154037894
[2022-08-27] MEDS ORDERED: MIDAZOLAM 1 MG/ML 5 ML VIAL IV STA (09:57)
[2022-08-27] MEDS: VASOPRESSIN 60 UNIT in SODIUM CHLORIDE 0.9% 150 ML IV SCH (10:00)
[2022-08-27] MEDS: LACOSAMIDE IV 150 MG in SODIUM CHLORIDE 0.9% 50 ML IVPB SCH ×2 (10:15→22:19)
[2022-08-27] MEDS: polyethylene glycoL 3350 17 GM POWD.PACK PO SCH ×2 (10:20→20:23)
[2022-08-27] MEDS: 1: MVI, ADULT NO.4 WITH VIT K 10 ML, TRACE (CONC-1ML/DOSE) 1 ML, SODIUM ACETATE 30 MEQ, IV SCH ×14 (10:30→20:22)
[2022-08-27] MEDS: levETIRAcetam IV 1,000 MG in SALINE 1 100ML.BAG IVPB SCH ×2 (10:55→20:22)
[2022-08-27 11:08] LABS: Glucose,Whole Blood 464 mg/dL (70-110)
[2022-08-27] MEDS: INSULIN REGULAR 100 UNIT in SODIUM CHLORIDE 0.9% 100 ML IV SCH ×4 (11:12→22:32)
--- NOTE | 2022-08-27 11:32 | P.PN ---
Subjective Progress Note Date: 08/26/22 Principal diagnosis: Sepsis/septic shock Patient is a 87-year-old female with multiple comorbidities presented to the hospital with a syncopal episode weakness subsequently hypotension, sepsis requiring transfer to the ICU and intubation on the vent. She patient did have a CT of abdominal pelvis completed on 08/20/2022 with evidence of pneumoperitoneum Gen. surgery discussed with the family currently being treated medically On today's evaluation that is 08/26/2022, the patient remains to be afebrile, the patient continues to be requiring max pressor support to maintain her blood pressure per the nursing staff, the patient FiO2 is slightly down to 45 %, no significant purulent secretions through the ET , patient did have NG to suction, the patient fecal management system and it fell off yesterday and could not be replaced Objective - Vital Signs Vital signs: Vital Signs Temp 98 F 08/26/22 00:00 Pulse 121 H 08/26/22 09:16 Resp 31 H 08/26/22 09:16 BP 99/52 08/19/22 16:39 Pulse Ox 76 L 08/26/22 01:00 FiO2 45 08/26/22 09:08 Intake & Output 08/25/22 08/26/22 08/26/22 18:59 06:59 18:59 Intake Total 3145.024 2247.836 138.4 Output Total 570 430 805 Balance 2575.024 1817.836 -666.6 Weight 138.7 kg 140.9 kg Intake: IV 2602 1286 98 0.9% @ KVO 40 200 20 Anidulafungin 200 mg In 200 Sodium Chloride 0.9% 200 ml @ 84 mls/hr IVPB ONCE ONE Rx#:[id number] Calcium Gluconate in NaCl 100 1 gm In Saline 1 100ml. bag @ 100 mls/hr IVPB Q1H [facility] Rx#:[id number] Calcium Gluconate in NaCl 100 1 gm In Saline 1 100ml. bag @ 100 mls/hr IVPB Q1H [facility] Rx#:[id number] Ceftolozane/Tazobactam 0. 200 100 75 gm In Sodium Chloride 0.9% 100 ml @ 100 mls/hr IV Q8HR [facility] Rx#:[id number] DAPTOmycin 500 mg In 50 Sodium Chloride 0.9% 50 ml @ 100 mls/hr IVPB Q48H [facility] Rx#:[id number] Dextrose 5% in Water 1, 900 825 75 000 ml @ 75 mls/hr IV . [id number] [facility] with Sodium Bicarb (1 Meq/ml) 150 ml Rx#:[id number] Fat Emulsion 20% 250 ml 126 42 In Empty Bag 1 bag @ 21 mls/hr IV TuFr [facility] Rx#: [id number] Lacosamide IV 150 mg In 100 50 Sodium Chloride 0.9% 50 ml @ 100 mls/hr IVPB BID [facility] Rx#:[id number] Linezolid 600 mg In 300 Dextrose/Water 1 300ml. bag @ 150 mls/hr IVPB Q12H [facility] Rx#:[id number] Phenytoin Sodium Inj 1, 200 36 000 mg In Sodium Chloride 0.9% 100 ml @ 200 mls/hr IVPB ONCE [facility] Rx#: [id number] Potassium Chloride 20 meq 250 In Water For Injection 1 100ml.bag @ 50 mls/hr IVPB Q2H [facility] Rx#: [id number] Pressure Bag 36 33 3 Intake, IV Titration 543.024 961.836 40.4 Amount Amiodarone 450 mg In 500 Dextrose 5% in Water 250 ml @ 1 MG/MIN 33.333 mls/ hr IV .Q7H30M [facility] Rx#: [id number] Midazolam HCl 50 mg In 78.917 42.9 40.4 Sodium Chloride 0.9% 40 ml @ 6 MG/HR 6 mls/hr IV .Q8H20M [facility] Rx#:[id number] Mvi, Adult No.4 with Vit 30 K 10 ml Trace (Conc-1Ml/ Dose) 1 ml Sodium Acetate 30 meq Potassium Chloride 20 meq Magnesium Sulfate gm 0.5 gm Calcium Gluconate 2 gm In Amino Acids 5 %/Dextrose 20 % 1,000 ml @ 30 mls/ hr IV .Q24H [facility] Rx#: [id number] Norepinephrine 32 mg In 434.107 248.658 Sodium Chloride 0.9% 218 ml @ 0.5 MCG/KG/MIN 25. 547 mls/hr IV .Q9H48M [facility] Rx#:[id number] Vasopressin 60 unit In 70.278 Sodium Chloride 0.9% 150 ml @ 0.04 UNITS/MIN 6.12 mls/hr IV .Q24H [facility] Rx#: [id number] levETIRAcetam IV 1,000 mg 100 In Saline 1 100ml.bag @ 400 mls/hr IVPB Q12HR [facility] Rx#:[id number] Output: Gastric Drainage 750 Urine 560 430 55 Estimated Blood Loss 10 Other: Voiding Method Indwelling Catheter Indwelling Catheter ABP, PAP, CO, CI - Last Documented Arterial Blood Pressure 133/44 - Exam GENERAL DESCRIPTION: An elderly female intubated on the vent RESPIRATORY SYSTEM: Unlabored breathing , decreased breath sounds at bases HEART: S1 S2 regular rate and rhythm , ABDOMEN: Soft , abdominal distention EXTREMITIES: Lower extremity swelling no redness - Labs CBC & Chem 7: 08/26/22 05:44 08/27/22 05:50 Labs: Abnormal Lab Results - Last 24 Hours (Table) 08/25/22 08/25/22 08/25/22 Range/Units 11:32 15:15 15:58 WBC (3.8-10.6) k/uL RBC (3.80-5.40) m/uL Hgb (11.4-16.0) gm/dL Hct (34.0-46.0) % MCHC (31.0-37.0) g/dL RDW (11.5-15.5) % Neutrophils # (Manual) (1.3-7.7) k/uL Nucleated RBCs (0-0) /100 WBC ABG pH (7.35-7.45) ABG pCO2 (35-45) mmHg ABG pO2 (83-108) mmHg ABG HCO3 (21-25) mmol/L ABG O2 Saturation (94-97) % Sodium (137-145) mmol/L Potassium (3.5-5.1) mmol/L Chloride (98-107) mmol/L Carbon Dioxide (22-30) mmol/L BUN (7-17) mg/dL Creatinine (0.52-1.04) mg/dL Glucose (74-99) mg/dL POC Glucose (mg/dL) 234 H 201 H (70-110) mg/dL Calcium (8.4-10.2) mg/dL Ionized Calcium [place] (4.5-5.3) mg/dL Phosphorus (2.5-4.5) mg/dL AST (14-36) U/L Alkaline Phosphatase (38-126) U/L Ammonia 221 H (<30) umol/L Total Protein (6.3-8.2) g/dL Albumin (3.5-5.0) g/dL 08/25/22 08/25/22 08/26/22 Range/Units 19:14 21:02 00:02 WBC (3.8-10.6) k/uL RBC (3.80-5.40) m/uL Hgb (11.4-16.0) gm/dL Hct (34.0-46.0) % MCHC (31.0-37.0) g/dL RDW (11.5-15.5) % Neutrophils # (Manual) (1.3-7.7) k/uL Nucleated RBCs (0-0) /100 WBC ABG pH 7.22 L (7.35-7.45) ABG pCO2 48 H (35-45) mmHg ABG pO2 305 H (83-108) mmHg ABG HCO3 20 L (21-25) mmol/L ABG O2 Saturation 99.1 H (94-97) % Sodium (137-145) mmol/L Potassium (3.5-5.1) mmol/L Chloride (98-107) mmol/L Carbon Dioxide (22-30) mmol/L BUN (7-17) mg/dL Creatinine (0.52-1.04) mg/dL Glucose (74-99) mg/dL POC Glucose (mg/dL) 324 H 415 H (70-110) mg/dL Calcium (8.4-10.2) mg/dL Ionized Calcium [place] (4.5-5.3) mg/dL Phosphorus (2.5-4.5) mg/dL AST (14-36) U/L Alkaline Phosphatase (38-126) U/L Ammonia (<30) umol/L Total Protein (6.3-8.2) g/dL Albumin (3.5-5.0) g/dL 08/26/22 08/26/22 08/26/22 Range/Units 04:34 05:44 05:44 WBC (3.8-10.6) k/uL RBC (3.80-5.40) m/uL Hgb (11.4-16.0) gm/dL Hct (34.0-46.0) % MCHC (31.0-37.0) g/dL RDW (11.5-15.5) % Neutrophils # (Manual) (1.3-7.7) k/uL Nucleated RBCs (0-0) /100 WBC ABG pH (7.35-7.45) ABG pCO2 (35-45) mmHg ABG pO2 (83-108) mmHg ABG HCO3 (21-25) mmol/L ABG O2 Saturation (94-97) % Sodium 132 L (137-145) mmol/L Potassium 3.0 L (3.5-5.1) mmol/L Chloride 97 L (98-107) mmol/L Carbon Dioxide 19 L (22-30) mmol/L BUN 76 H (7-17) mg/dL Creatinine 1.74 H (0.52-1.04) mg/dL Glucose 376 H (74-99) mg/dL POC Glucose (mg/dL) 424 H (70-110) mg/dL Calcium 5.6 L* (8.4-10.2) mg/dL Ionized Calcium [place] 3.7 L (4.5-5.3) mg/dL Phosphorus 6.3 H (2.5-4.5) mg/dL AST 57 H (14-36) U/L Alkaline Phosphatase 179 H (38-126) U/L Ammonia 171 H (<30) umol/L Total Protein 4.1 L (6.3-8.2) g/dL Albumin 1.6 L (3.5-5.0) g/dL 08/26/22 08/26/22 08/26/22 Range/Units 05:44 06:05 08:40 WBC 21.3 H (3.8-10.6) k/uL RBC 2.79 L (3.80-5.40) m/uL Hgb 7.2 L (11.4-16.0) gm/dL Hct 24.4 L (34.0-46.0) % MCHC 29.4 L (31.0-37.0) g/dL RDW 18.0 H (11.5-15.5) % Neutrophils # (Manual) 20.00 H (1.3-7.7) k/uL Nucleated RBCs 5 H (0-0) /100 WBC ABG pH 7.26 L (7.35-7.45) ABG pCO2 47 H (35-45) mmHg ABG pO2 (83-108) mmHg ABG HCO3 (21-25) mmol/L ABG O2 Saturation (94-97) % Sodium (137-145) mmol/L Potassium (3.5-5.1) mmol/L Chloride (98-107) mmol/L Carbon Dioxide (22-30) mmol/L BUN (7-17) mg/dL Creatinine (0.52-1.04) mg/dL Glucose (74-99) mg/dL POC Glucose (mg/dL) 401 H (70-110) mg/dL Calcium (8.4-10.2) mg/dL Ionized Calcium [place] (4.5-5.3) mg/dL Phosphorus (2.5-4.5) mg/dL AST (14-36) U/L Alkaline Phosphatase (38-126) U/L Ammonia (<30) umol/L Total Protein (6.3-8.2) g/dL Albumin (3.5-5.0) g/dL Microbiology - Last 24 Hours (Table) 08/23/22 11:40 Blood Culture Gram Stain - Preliminary Blood Blood Culture - Preliminary Enterococcus faecium Assessment and Plan (1) Sepsis Current Visit: Yes Status: Acute Code(s): A41.9 - SEPSIS, UNSPECIFIED ORGANISM SNOMED Code(s): 10402657 Plan: 1patient was in the hospital with sepsis and septic shock initially concern for multidrug-resistant Pseudomonas UTI, patient also have a candidemia secondary to possible abdominal source and now with a VRE bacteremia source likely abdominal 2patient did have evidence of colonic perforation and peritonitis being managed medically as the patient considered to be high risk for any surgical procedure 3patient did have persistent VRE bacteremia and could be related to the multiple lines , patient will benefit from removal of those lines to control her bacteremia, patient also now growing MRSA in the sputum patient to continue with Zyvox Zerbex and Eraxis monitor clinical course closely Time with Patient: Less than 30
--- NOTE | 2022-08-27 11:34 | P.PN ---
Subjective Progress Note Date: 08/27/22 Principal diagnosis: Sepsis/septic shock Patient is a 87-year-old female with multiple comorbidities presented to the hospital with a syncopal episode weakness subsequently hypotension, sepsis requiring transfer to the ICU and intubation on the vent. She patient did have a CT of abdominal pelvis completed on 08/20/2022 with evidence of pneumoperitoneum Gen. surgery discussed with the family currently being treated medically On today's evaluation that is 08/27/2022, the patient continues to be afebrile, the patient is requiring less pressor support and oriented and is able to cut down the amount of pressor support to maintain her blood pressure, the patient FiO2 is currently stable at 45 %, no significant purulent secretions through the ET , patient did have NG to suction, patient is on TPN for nutrition Objective - Vital Signs Vital signs: Vital Signs Temp 97.8 F 08/27/22 08:00 Pulse 122 H 08/27/22 10:01 Resp 30 H 08/27/22 10:01 BP 136/87 08/27/22 09:00 Pulse Ox 89 L 08/27/22 09:00 FiO2 45 08/27/22 09:20 Intake & Output 08/26/22 08/27/22 08/27/22 18:59 06:59 18:59 Intake Total 3036.821 2369.818 474.232 Output Total 1540 695 75 Balance 6555.685 7883.818 399.232 Weight 140.9 kg 146.5 kg Intake: IV 2571 1861 321 0.9% @ KVO 20 110 10 Anidulafungin 100 mg In 100 Sodium Chloride 0.9% 100 ml @ 84 mls/hr IVPB DAILY [facility] Rx#:[id number] Calcium Gluconate in NaCl 100 2 gm In Saline 1 100ml. bag @ 100 mls/hr IVPB ONCE ONE Rx#:[id number] Ceftolozane/Tazobactam 0. 100 100 75 gm In Sodium Chloride 0.9% 100 ml @ 100 mls/hr IV Q8HR [facility] Rx#:[id number] Dextrose 5% in Water 1, 900 525 75 000 ml @ 75 mls/hr IV . [id number] [facility] with Sodium Bicarb (1 Meq/ml) 150 ml Rx#:[id number] Lacosamide IV 150 mg In 50 Sodium Chloride 0.9% 50 ml @ 100 mls/hr IVPB BID [facility] Rx#:[id number] Linezolid 600 mg In 300 150 Dextrose/Water 1 300ml. bag @ 150 mls/hr IVPB Q12H [facility] Rx#:[id number] Magnesium Sulfate-D5w Pmx 100 10 100 1 gm In Dextrose/Water 1 100ml.bag @ 100 mls/hr IVPB Q1H [facility] Rx#: [id number] Phenytoin Sodium Inj 1, 100 000 mg In Sodium Chloride 0.9% 100 ml @ 200 mls/hr IVPB ONCE [facility] Rx#: [id number] Pressure Bag 36 36 6 Sodium Acetate 30 meq 715 780 130 Potassium Chloride 30 meq Magnesium Sulfate gm 0.5 gm Calcium Gluconate 2 gm In Amino Acids 5 %/ Dextrose 20 % 1,000 ml @ 65 mls/hr IV .BY DURATION [facility] Rx#:[id number] levETIRAcetam IV 1,000 mg 100 100 In Saline 1 100ml.bag @ 400 mls/hr IVPB Q12HR [facility] Rx#:[id number] Intake, IV Titration 465.821 508.818 153.232 Amount Amiodarone 450 mg In 145.554 329.999 Dextrose 5% in Water 250 ml @ 1 MG/MIN 33.333 mls/ hr IV .Q7H30M [facility] Rx#: [id number] Midazolam HCl 50 mg In 70.267 97.017 34.65 Sodium Chloride 0.9% 40 ml @ 6 MG/HR 6 mls/hr IV .Q8H20M [facility] Rx#:[id number] Norepinephrine 32 mg In 250.000 81.802 118.582 Sodium Chloride 0.9% 218 ml @ 0.5 MCG/KG/MIN 25. 547 mls/hr IV .Q9H48M [facility] Rx#:[id number] Output: Gastric Drainage 750 Urine 790 695 75 Other: Voiding Method Indwelling Catheter Indwelling Catheter ABP, PAP, CO, CI - Last Documented Arterial Blood Pressure 146/132 - Exam GENERAL DESCRIPTION: An elderly female intubated on the vent RESPIRATORY SYSTEM: Unlabored breathing , decreased breath sounds at bases HEART: S1 S2 regular rate and rhythm , ABDOMEN: Soft , abdominal distention EXTREMITIES: Diffuse swelling bilateral lower extremity no redness - Labs CBC & Chem 7: 08/26/22 05:44 08/27/22 05:50 Labs: Abnormal Lab Results - Last 24 Hours (Table) 08/26/22 08/26/22 08/26/22 Range/Units 12:59 16:59 17:02 ABG pH (7.35-7.45) ABG pCO2 (35-45) mmHg ABG Total CO2 (19-24) mmol/L ABG O2 Saturation (94-97) % Sodium (137-145) mmol/L Potassium 3.3 L (3.5-5.1) mmol/L Chloride (98-107) mmol/L BUN (7-17) mg/dL Creatinine (0.52-1.04) mg/dL Glucose (74-99) mg/dL POC Glucose (mg/dL) 393 H 475 H (70-110) mg/dL Calcium (8.4-10.2) mg/dL Ionized Calcium [place] (4.5-5.3) mg/dL Phosphorus (2.5-4.5) mg/dL AST (14-36) U/L Alkaline Phosphatase (38-126) U/L Total Protein (6.3-8.2) g/dL Albumin (3.5-5.0) g/dL 08/26/22 08/27/22 08/27/22 Range/Units 20:58 00:41 04:15 ABG pH (7.35-7.45) ABG pCO2 (35-45) mmHg ABG Total CO2 (19-24) mmol/L ABG O2 Saturation (94-97) % Sodium (137-145) mmol/L Potassium (3.5-5.1) mmol/L Chloride (98-107) mmol/L BUN (7-17) mg/dL Creatinine (0.52-1.04) mg/dL Glucose (74-99) mg/dL POC Glucose (mg/dL) 466 H 389 H 489 H (70-110) mg/dL Calcium (8.4-10.2) mg/dL Ionized Calcium [place] (4.5-5.3) mg/dL Phosphorus (2.5-4.5) mg/dL AST (14-36) U/L Alkaline Phosphatase (38-126) U/L Total Protein (6.3-8.2) g/dL Albumin (3.5-5.0) g/dL 08/27/22 08/27/22 08/27/22 Range/Units 05:31 05:50 05:50 ABG pH 7.30 L (7.35-7.45) ABG pCO2 48 H (35-45) mmHg ABG Total CO2 25 H (19-24) mmol/L ABG O2 Saturation 97.4 H (94-97) % Sodium 131 L (137-145) mmol/L Potassium 3.1 L (3.5-5.1) mmol/L Chloride 96 L (98-107) mmol/L BUN 75 H (7-17) mg/dL Creatinine 1.82 H (0.52-1.04) mg/dL Glucose 423 H (74-99) mg/dL POC Glucose (mg/dL) (70-110) mg/dL Calcium 6.1 L* (8.4-10.2) mg/dL Ionized Calcium [place] 4.0 L (4.5-5.3) mg/dL Phosphorus 4.9 H (2.5-4.5) mg/dL AST 42 H (14-36) U/L Alkaline Phosphatase 177 H (38-126) U/L Total Protein 4.2 L (6.3-8.2) g/dL Albumin 1.6 L (3.5-5.0) g/dL 08/27/22 08/27/22 Range/Units 06:14 09:13 ABG pH (7.35-7.45) ABG pCO2 (35-45) mmHg ABG Total CO2 (19-24) mmol/L ABG O2 Saturation (94-97) % Sodium (137-145) mmol/L Potassium (3.5-5.1) mmol/L Chloride (98-107) mmol/L BUN (7-17) mg/dL Creatinine (0.52-1.04) mg/dL Glucose (74-99) mg/dL POC Glucose (mg/dL) 483 H 311 H (70-110) mg/dL Calcium (8.4-10.2) mg/dL Ionized Calcium [place] (4.5-5.3) mg/dL Phosphorus (2.5-4.5) mg/dL AST (14-36) U/L Alkaline Phosphatase (38-126) U/L Total Protein (6.3-8.2) g/dL Albumin (3.5-5.0) g/dL Microbiology - Last 24 Hours (Table) 08/23/22 11:40 Blood Culture Gram Stain - Final Blood Blood Culture - Final Enterococcus faecium VRE Assessment and Plan (1) Sepsis Current Visit: Yes Status: Acute Code(s): A41.9 - SEPSIS, UNSPECIFIED ORGANISM SNOMED Code(s): 56837540 Plan: 1patient was in the hospital with sepsis and septic shock initially concern for multidrug-resistant Pseudomonas UTI, patient also have a candidemia secondary to possible abdominal source and now with a VRE bacteremia source likely abdominal 2patient did have evidence of colonic perforation and peritonitis being managed medically as the patient considered to be high risk for any surgical procedure 3patient did have persistent VRE bacteremia and could be related to the multiple lines , patient will benefit from removal of those lines to control her bacteremia 4-the patient may have minimal clinical improvement as requiring less for support and resolution of her fever, patient to continue with Zyvox Zerbex and Eraxis monitor clinical course closely Time with Patient: Less than 30
--- NOTE | 2022-08-27 11:42 | P.PN ---
Subjective Patient is seen for follow-up for acute kidney injury, mostly ATN. Etiology is sepsis with fungemia and UTI with urine cultures growing Pseudomonas and enterococcus. Patient also has left lower lobe pneumonia. Patient remains on the vent. FiO2 is at 40%. Patient is also maintained on levo fed. It is currently being weaned Urine output at 40-45 mL an hour. Status post trach and PEG on 08/25/2022 Maintained on TPN Objective - Vital Signs Vital signs: Vital Signs Temp 97.8 F 08/27/22 08:00 Pulse 122 H 08/27/22 10:01 Resp 30 H 08/27/22 10:01 BP 136/87 08/27/22 09:00 Pulse Ox 89 L 08/27/22 09:00 FiO2 45 08/27/22 09:20 Intake & Output 08/26/22 08/27/22 08/27/22 18:59 06:59 18:59 Intake Total 3036.821 2369.818 474.232 Output Total 1540 695 75 Balance 2149.211 2544.818 399.232 Weight 140.9 kg 146.5 kg Intake: IV 2571 1861 321 0.9% @ KVO 20 110 10 Anidulafungin 100 mg In 100 Sodium Chloride 0.9% 100 ml @ 84 mls/hr IVPB DAILY [facility] Rx#:[id number] Calcium Gluconate in NaCl 100 2 gm In Saline 1 100ml. bag @ 100 mls/hr IVPB ONCE ONE Rx#:[id number] Ceftolozane/Tazobactam 0. 100 100 75 gm In Sodium Chloride 0.9% 100 ml @ 100 mls/hr IV Q8HR [facility] Rx#:[id number] Dextrose 5% in Water 1, 900 525 75 000 ml @ 75 mls/hr IV . [id number] [facility] with Sodium Bicarb (1 Meq/ml) 150 ml Rx#:[id number] Lacosamide IV 150 mg In 50 Sodium Chloride 0.9% 50 ml @ 100 mls/hr IVPB BID [facility] Rx#:[id number] Linezolid 600 mg In 300 150 Dextrose/Water 1 300ml. bag @ 150 mls/hr IVPB Q12H [facility] Rx#:[id number] Magnesium Sulfate-D5w Pmx 100 10 100 1 gm In Dextrose/Water 1 100ml.bag @ 100 mls/hr IVPB Q1H [facility] Rx#: [id number] Phenytoin Sodium Inj 1, 100 000 mg In Sodium Chloride 0.9% 100 ml @ 200 mls/hr IVPB ONCE [facility] Rx#: [id number] Pressure Bag 36 36 6 Sodium Acetate 30 meq 715 780 130 Potassium Chloride 30 meq Magnesium Sulfate gm 0.5 gm Calcium Gluconate 2 gm In Amino Acids 5 %/ Dextrose 20 % 1,000 ml @ 65 mls/hr IV .BY DURATION [facility] Rx#:[id number] levETIRAcetam IV 1,000 mg 100 100 In Saline 1 100ml.bag @ 400 mls/hr IVPB Q12HR [facility] Rx#:[id number] Intake, IV Titration 465.821 508.818 153.232 Amount Amiodarone 450 mg In 145.554 329.999 Dextrose 5% in Water 250 ml @ 1 MG/MIN 33.333 mls/ hr IV .Q7H30M [facility] Rx#: [id number] Midazolam HCl 50 mg In 70.267 97.017 34.65 Sodium Chloride 0.9% 40 ml @ 6 MG/HR 6 mls/hr IV .Q8H20M [facility] Rx#:[id number] Norepinephrine 32 mg In 250.000 81.802 118.582 Sodium Chloride 0.9% 218 ml @ 0.5 MCG/KG/MIN 25. 547 mls/hr IV .Q9H48M [facility] Rx#:[id number] Output: Gastric Drainage 750 Urine 790 695 75 Other: Voiding Method Indwelling Catheter Indwelling Catheter ABP, PAP, CO, CI - Last Documented Arterial Blood Pressure 146/132 - Exam Patient is sedated and on the vent. Examination of the heart S1 and S2 Examination of the lungs bilateral breath sounds are heard Abdomen is soft distended obese Examination lower extremity shows edema 3 + bilaterally upper and lower extremities Discoloration noted in upper and lower extremities, seems slightly better DYE WEIGHER exam cannot be performed - Labs CBC & Chem 7: 08/26/22 05:44 08/27/22 05:50 Labs: Abnormal Lab Results - Last 24 Hours (Table) 08/26/22 08/26/22 08/26/22 Range/Units 12:59 16:59 17:02 ABG pH (7.35-7.45) ABG pCO2 (35-45) mmHg ABG Total CO2 (19-24) mmol/L ABG O2 Saturation (94-97) % Sodium (137-145) mmol/L Potassium 3.3 L (3.5-5.1) mmol/L Chloride (98-107) mmol/L BUN (7-17) mg/dL Creatinine (0.52-1.04) mg/dL Glucose (74-99) mg/dL POC Glucose (mg/dL) 393 H 475 H (70-110) mg/dL Calcium (8.4-10.2) mg/dL Ionized Calcium [place] (4.5-5.3) mg/dL Phosphorus (2.5-4.5) mg/dL AST (14-36) U/L Alkaline Phosphatase (38-126) U/L Total Protein (6.3-8.2) g/dL Albumin (3.5-5.0) g/dL 08/26/22 08/27/22 08/27/22 Range/Units 20:58 00:41 04:15 ABG pH (7.35-7.45) ABG pCO2 (35-45) mmHg ABG Total CO2 (19-24) mmol/L ABG O2 Saturation (94-97) % Sodium (137-145) mmol/L Potassium (3.5-5.1) mmol/L Chloride (98-107) mmol/L BUN (7-17) mg/dL Creatinine (0.52-1.04) mg/dL Glucose (74-99) mg/dL POC Glucose (mg/dL) 466 H 389 H 489 H (70-110) mg/dL Calcium (8.4-10.2) mg/dL Ionized Calcium [place] (4.5-5.3) mg/dL Phosphorus (2.5-4.5) mg/dL AST (14-36) U/L Alkaline Phosphatase (38-126) U/L Total Protein (6.3-8.2) g/dL Albumin (3.5-5.0) g/dL 08/27/22 08/27/22 08/27/22 Range/Units 05:31 05:50 05:50 ABG pH 7.30 L (7.35-7.45) ABG pCO2 48 H (35-45) mmHg ABG Total CO2 25 H (19-24) mmol/L ABG O2 Saturation 97.4 H (94-97) % Sodium 131 L (137-145) mmol/L Potassium 3.1 L (3.5-5.1) mmol/L Chloride 96 L (98-107) mmol/L BUN 75 H (7-17) mg/dL Creatinine 1.82 H (0.52-1.04) mg/dL Glucose 423 H (74-99) mg/dL POC Glucose (mg/dL) (70-110) mg/dL Calcium 6.1 L* (8.4-10.2) mg/dL Ionized Calcium [place] 4.0 L (4.5-5.3) mg/dL Phosphorus 4.9 H (2.5-4.5) mg/dL AST 42 H (14-36) U/L Alkaline Phosphatase 177 H (38-126) U/L Total Protein 4.2 L (6.3-8.2) g/dL Albumin 1.6 L (3.5-5.0) g/dL 08/27/22 08/27/22 08/27/22 Range/Units 06:14 09:13 11:07 ABG pH (7.35-7.45) ABG pCO2 (35-45) mmHg ABG Total CO2 (19-24) mmol/L ABG O2 Saturation (94-97) % Sodium (137-145) mmol/L Potassium (3.5-5.1) mmol/L Chloride (98-107) mmol/L BUN (7-17) mg/dL Creatinine (0.52-1.04) mg/dL Glucose (74-99) mg/dL POC Glucose (mg/dL) 483 H 311 H 464 H (70-110) mg/dL Calcium (8.4-10.2) mg/dL Ionized Calcium [place] (4.5-5.3) mg/dL Phosphorus (2.5-4.5) mg/dL AST (14-36) U/L Alkaline Phosphatase (38-126) U/L Total Protein (6.3-8.2) g/dL Albumin (3.5-5.0) g/dL Microbiology - Last 24 Hours (Table) 08/23/22 11:40 Blood Culture Gram Stain - Final Blood Blood Culture - Final Enterococcus faecium VRE Assessment and Plan Assessment: 1. Acute kidney injury secondary to ATN from underlying infection with fungemia and urine tract infection with Pseudomonas and enterococcus. Renal function stable over the last few days. 2. Hypotension secondary to sepsis, on levo fed. Vasopressin has been discontinued. 3. Ventilator dependent respiratory failure, stable 40% FiO2 status post trach and PEG 3. Left lower lobe pneumonia 4. UTI with Pseudomonas and enterococcus. 5. Hypocalcemia secondary to acute kidney injury. Severe nutritional vitamin D deficiency noted 6. Elevated liver function tests secondary to sepsis/ hypotension Plan: Replace potassium, calcium. Continue with Drisdol Maintain TPN Agree with Lasix drip. We'll start at 10 mg an hour.
--- NOTE | 2022-08-27 11:52 | P.PN ---
Subjective Progress Note Date: 08/27/22 Principal diagnosis: Sepsis, acute kidney injury, shortness of breath, heart failure, on ventilator at 40% FiO2, on vasopressin and Levophed doses of both meds have been reduced, b lood pressure is improved urinary output has improved, consideration for PEG tube placement Noted the patient received trach yesterday, patient started on phenytoin secondary to possible seizure activities noted on EEG Patient presented to the hospital on 08/08/2022 secondary to shortness of breath hypotension patient had syncopal episode on the toilet, was recently discharged from rehab facility, brought in by EMS, was admitted to the stepdown unit, and subsequently transferred to the intensive care unit where she was placed on BiPAP secondary to severe acidosis and was intubated and placed on pressors , despite multiple boluses of normal saline despite receiving IV Lasix. This patient has a long-standing history of diabetes hypertension 08/26/2022 patient currently intubated and sedated, etiology for current state includes sepsis fungemia urinary sepsis urine cultures growing Pseudomonas and enterococcus and acute tubular necrosis the kidneys marisel, and left lower lobe pneumonia Patient is currently maintained on pressors including Levophed and vasopressin being reduced, recently had tracheostomy. Peg tube Is being considered Objective - Vital Signs Vital signs: Vital Signs Temp 97.8 F 08/27/22 08:00 Pulse 122 H 08/27/22 10:01 Resp 30 H 08/27/22 10:01 BP 136/87 08/27/22 09:00 Pulse Ox 89 L 08/27/22 09:00 FiO2 45 08/27/22 09:20 Intake & Output 08/26/22 08/27/22 08/27/22 18:59 06:59 18:59 Intake Total 3036.821 2369.818 474.232 Output Total 1540 695 75 Balance 7417.659 1549.818 399.232 Weight 140.9 kg 146.5 kg Intake: IV 2571 1861 321 0.9% @ KVO 20 110 10 Anidulafungin 100 mg In 100 Sodium Chloride 0.9% 100 ml @ 84 mls/hr IVPB DAILY [facility] Rx#:[id number] Calcium Gluconate in NaCl 100 2 gm In Saline 1 100ml. bag @ 100 mls/hr IVPB ONCE [facility] Rx#:[id number] Ceftolozane/Tazobactam 0. 100 100 75 gm In Sodium Chloride 0.9% 100 ml @ 100 mls/hr IV Q8HR [facility] Rx#:[id number] Dextrose 5% in Water 1, 900 525 75 000 ml @ 75 mls/hr IV . [id number] [facility] with Sodium Bicarb (1 Meq/ml) 150 ml Rx#:[id number] Lacosamide IV 150 mg In 50 Sodium Chloride 0.9% 50 ml @ 100 mls/hr IVPB BID [facility] Rx#:[id number] Linezolid 600 mg In 300 150 Dextrose/Water 1 300ml. bag @ 150 mls/hr IVPB Q12H [facility] Rx#:[id number] Magnesium Sulfate-D5w Pmx 100 10 100 1 gm In Dextrose/Water 1 100ml.bag @ 100 mls/hr IVPB Q1H [facility] Rx#: [id number] Phenytoin Sodium Inj 1, 100 000 mg In Sodium Chloride 0.9% 100 ml @ 200 mls/hr IVPB ONCE [facility] Rx#: [id number] Pressure Bag 36 36 6 Sodium Acetate 30 meq 715 780 130 Potassium Chloride 30 meq Magnesium Sulfate gm 0.5 gm Calcium Gluconate 2 gm In Amino Acids 5 %/ Dextrose 20 % 1,000 ml @ 65 mls/hr IV .BY DURATION [facility] Rx#:[id number] levETIRAcetam IV 1,000 mg 100 100 In Saline 1 100ml.bag @ 400 mls/hr IVPB Q12HR [facility] Rx#:[id number] Intake, IV Titration 465.821 508.818 153.232 Amount Amiodarone 450 mg In 145.554 329.999 Dextrose 5% in Water 250 ml @ 1 MG/MIN 33.333 mls/ hr IV .Q7H30M [facility] Rx#: [id number] Midazolam HCl 50 mg In 70.267 97.017 34.65 Sodium Chloride 0.9% 40 ml @ 6 MG/HR 6 mls/hr IV .Q8H20M [facility] Rx#:[id number] Norepinephrine 32 mg In 250.000 81.802 118.582 Sodium Chloride 0.9% 218 ml @ 0.5 MCG/KG/MIN 25. 547 mls/hr IV .Q9H48M [facility] Rx#:[id number] Output: Gastric Drainage 750 Urine 790 695 75 Other: Voiding Method Indwelling Catheter Indwelling Catheter ABP, PAP, CO, CI - Last Documented Arterial Blood Pressure 146/132 - Labs CBC & Chem 7: 08/26/22 05:44 08/27/22 05:50 Labs: Abnormal Lab Results - Last 24 Hours (Table) 08/26/22 08/26/22 08/26/22 Range/Units 12:59 16:59 17:02 ABG pH (7.35-7.45) ABG pCO2 (35-45) mmHg ABG Total CO2 (19-24) mmol/L ABG O2 Saturation (94-97) % Sodium (137-145) mmol/L Potassium 3.3 L (3.5-5.1) mmol/L Chloride (98-107) mmol/L BUN (7-17) mg/dL Creatinine (0.52-1.04) mg/dL Glucose (74-99) mg/dL POC Glucose (mg/dL) 393 H 475 H (70-110) mg/dL Calcium (8.4-10.2) mg/dL Ionized Calcium [place] (4.5-5.3) mg/dL Phosphorus (2.5-4.5) mg/dL AST (14-36) U/L Alkaline Phosphatase (38-126) U/L Total Protein (6.3-8.2) g/dL Albumin (3.5-5.0) g/dL 08/26/22 08/27/22 08/27/22 Range/Units 20:58 00:41 04:15 ABG pH (7.35-7.45) ABG pCO2 (35-45) mmHg ABG Total CO2 (19-24) mmol/L ABG O2 Saturation (94-97) % Sodium (137-145) mmol/L Potassium (3.5-5.1) mmol/L Chloride (98-107) mmol/L BUN (7-17) mg/dL Creatinine (0.52-1.04) mg/dL Glucose (74-99) mg/dL POC Glucose (mg/dL) 466 H 389 H 489 H (70-110) mg/dL Calcium (8.4-10.2) mg/dL Ionized Calcium [place] (4.5-5.3) mg/dL Phosphorus (2.5-4.5) mg/dL AST (14-36) U/L Alkaline Phosphatase (38-126) U/L Total Protein (6.3-8.2) g/dL Albumin (3.5-5.0) g/dL 08/27/22 08/27/22 08/27/22 Range/Units 05:31 05:50 05:50 ABG pH 7.30 L (7.35-7.45) ABG pCO2 48 H (35-45) mmHg ABG Total CO2 25 H (19-24) mmol/L ABG O2 Saturation 97.4 H (94-97) % Sodium 131 L (137-145) mmol/L Potassium 3.1 L (3.5-5.1) mmol/L Chloride 96 L (98-107) mmol/L BUN 75 H (7-17) mg/dL Creatinine 1.82 H (0.52-1.04) mg/dL Glucose 423 H (74-99) mg/dL POC Glucose (mg/dL) (70-110) mg/dL Calcium 6.1 L* (8.4-10.2) mg/dL Ionized Calcium [place] 4.0 L (4.5-5.3) mg/dL Phosphorus 4.9 H (2.5-4.5) mg/dL AST 42 H (14-36) U/L Alkaline Phosphatase 177 H (38-126) U/L Total Protein 4.2 L (6.3-8.2) g/dL Albumin 1.6 L (3.5-5.0) g/dL 08/27/22 08/27/22 08/27/22 Range/Units 06:14 09:13 11:07 ABG pH (7.35-7.45) ABG pCO2 (35-45) mmHg ABG Total CO2 (19-24) mmol/L ABG O2 Saturation (94-97) % Sodium (137-145) mmol/L Potassium (3.5-5.1) mmol/L Chloride (98-107) mmol/L BUN (7-17) mg/dL Creatinine (0.52-1.04) mg/dL Glucose (74-99) mg/dL POC Glucose (mg/dL) 483 H 311 H 464 H (70-110) mg/dL Calcium (8.4-10.2) mg/dL Ionized Calcium [place] (4.5-5.3) mg/dL Phosphorus (2.5-4.5) mg/dL AST (14-36) U/L Alkaline Phosphatase (38-126) U/L Total Protein (6.3-8.2) g/dL Albumin (3.5-5.0) g/dL Microbiology - Last 24 Hours (Table) 08/23/22 11:40 Blood Culture Gram Stain - Final Blood Blood Culture - Final Enterococcus faecium VRE Assessment and Plan (1) Sepsis Current Visit: Yes Status: Acute Code(s): A41.9 - SEPSIS, UNSPECIFIED ORGANISM SNOMED Code(s): 49646135 (2) Acquired hypothyroidism Current Visit: No Status: Acute Code(s): E03.9 - HYPOTHYROIDISM, UNSPECIFIED SNOMED Code(s): 332082028 (3) Acute exacerbation of chronic obstructive pulmonary disease Current Visit: Yes Status: Acute Code(s): J44.1 - CHRONIC OBSTRUCTIVE PULMONARY DISEASE W (ACUTE) EXACERBATION SNOMED Code(s): 700608516 (4) Acute on chronic diastolic (congestive) heart failure Current Visit: No Status: Acute Code(s): I50.33 - ACUTE ON CHRONIC DIASTOLIC (CONGESTIVE) HEART FAILURE SNOMED Code(s): 076927616 (5) Acute on chronic renal failure Current Visit: No Status: Acute Code(s): N17.9 - ACUTE KIDNEY FAILURE, U NSPECIFIED; N18.9 - CHRONIC KIDNEY DISEASE, UNSPECIFIED SNOMED Code(s): 2 36166894 (6) Acute pulmonary edema Current Visit: No Status: Acute Code(s): J81.0 - ACUTE PULMONARY EDEMA SNOMED Code(s): 50083828 (7) Acute renal failure Current Visit: No Status: Acute Code(s): N17.9 - ACUTE KIDNEY FAILURE, UNSPECIFIED SNOMED Code(s): 29622208 (8) Altered mental status Current Visit: No Status: Acute Code(s): R41.82 - ALTERED MENTAL STATUS, UNSPECIFIED SNOMED Code(s): 698686172 (9) Anemia Current Visit: Yes Status: Acute Code(s): D64.9 - ANEMIA, UNSPECIFIED SNOMED Code(s): 834909048 (10) CAD (coronary atherosclerotic disease) Current Visit: No Status: Acute Code(s): I25.10 - ATHSCL HEART DISEASE OF [place] CORONARY ARTERY W/O ANG PCTRS SNOMED Code(s): 347626405 (11) CHF (congestive heart failure) Current Visit: No Status: Acute Code(s): I50.9 - HEART FAILURE, UNSPECIFIED SNOMED Code(s): 51902860 (12) CKD (chronic kidney disease) stage 3, GFR 30-59 ml/min Current Visit: No Status: Acute Code(s): N18.30 - CHRONIC KIDNEY DISEASE, STAGE 3 UNSPECIFIED SNOMED Code(s): 590840135 (13) COPD exacerbation Current Visit: No Status: Acute Code(s): J44.1 - CHRONIC OBSTRUCTIVE PULMONARY DISEASE W (ACUTE) EXACERBATION SNOMED Code(s): 955545890 (14) COVID-19 Current Visit: No Status: Acute Code(s): U07.1 - COVID-19 SNOMED Code(s): 781118448 (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 Current Visit: No Status: Acute Code(s): M54.42 - LUMBAGO WITH SCIATICA, LEFT SIDE; M54.41 - LUMBAGO WITH SCIATICA, RIGHT SIDE; G89.29 - OTHER CHRONIC PAIN SNOMED Code(s): 694340030 Plan: Acute kidney injury secondary to urinary sepsis, slowly improving Hypotension secondary to sepsis, improved Acute respiratory failure ventilator dependent Left lower lobe pneumonia Urinary tract infection secondary to Pseudomonas and enterococcus improving Elevated liver function secondary to sepsis Aggressive supportive care being provided Prognosis guarded secondary to multiorgan failure ventilator dependence and acute kidney injury Tracheostomy placed, PEG tube being considered This has been discussed with and daughter multiple times Time with Patient: Less than 30
[2022-08-27] MEDS: FUROSEMIDE 100 MG in SODIUM CHLORIDE 0.9% 90 ML IV SCH ×2 (12:25→20:24)
[2022-08-27 12:29] LABS: Glucose,Whole Blood 429 mg/dL (70-110)
--- NOTE | 2022-08-27 12:39 | XR ---
EXAMINATION TYPE: XR chest 1V portable DATE OF EXAM: 08/27/2022 COMPARISON: 08/26/2022 INDICATION: Pneumonia TECHNIQUE: Single frontal view of the chest is obtained. FINDINGS: The heart size is normal. The pulmonary vasculature is normal. Small right pleural effusion is present. Small left pleural effusion may be present. There is left lo wer lobe infiltrate silhouetting the diaphragm. Tracheostomy tube is in the midline. Nasogastric transverse the thorax with the tip in the proximal l eft upper quadrant abdomen. There is a left central venous catheter with tip in the superior vena ca va region. IMPRESSION: 1. Left lower lobe infiltrate hypoechoic for atelectasis and pneumonia. 2. Small bilateral pleural effusions. 3. Lines and catheters discussed above.
--- NOTE | 2022-08-27 12:40 | P.PN ---
Subjective Progress Note Date: 08/27/22 History of present illness: This is an 87-year-old woman admitted to the intensive care unit with obstruct kolby bowel and subsequently developed bowel perforation. We're following for atrial fibrillation. Patient remains in atrial fibrillation with heart rate in the 120s to 140s. She is currently maxed out on levo fed and vasopressin. She had a trach placed yesterday. Last evening, staff rolled her to clean her from a bowel movement and her blood pressure dropped to 40/29 and she became bradycardic but had recovered on her own. 08/27 Patient remains intubated and on mechanical ventilation. She is on amiodarone drip which will be transitioned to oral. Heart rate remains elevated, atrial fibrillation Physical examination: Gen: This is a morbidly obese 87-year-old female, intubated and on mechanical ventilation VS: reviewed HEENT: Head is atraumatic, normocephalic. LUNGS: Managed. No intercostal retractions. HEART: Irregular ABDOMEN: Distended. EXTREMITIES: 2+ pedal edema. Toes are dusky Assessment: Persistent atrial fibrillation with poorly controlled ventricular rate Perforated bowel Severe hypotension Plan: Continue current plan, transition amiodarone drip to oral 400 mg twice daily Prognosis poor. Nurse practitioner note has been reviewed, I agree with documented findings and plan of care. Patient was seen and examined. Objective - Vital Signs Vital signs: Vital Signs Temp 97.8 F 08/27/22 08:00 Pulse 131 H 08/27/22 09:00 Resp 30 H 08/27/22 09:00 BP 136/87 08/27/22 09:00 Pulse Ox 89 L 08/27/22 09:00 FiO2 45 08/27/22 09:20 Intake & Output 08/26/22 08/27/22 08/27/22 18:59 06:59 18:59 Intake Total 3036.821 2369.818 474.232 Output Total 1540 695 75 Balance 7125.191 4688.818 399.232 Weight 140.9 kg 146.5 kg Intake: IV 3031 1861 321 0.9% @ KVO 20 110 10 Anidulafungin 100 mg In 100 Sodium Chloride 0.9% 100 ml @ 84 mls/hr IVPB DAILY [facility] Rx#:[id number] Calcium Gluconate in NaCl 100 2 gm In Saline 1 100ml. bag @ 100 mls/hr IVPB ONCE [facility] Rx#:[id number] Ceftolozane/Tazobactam 0. 100 100 75 gm In Sodium Chloride 0.9% 100 ml @ 100 mls/hr IV Q8HR [facility] Rx#:[id number] Dextrose 5% in Water 1, 900 525 75 000 ml @ 75 mls/hr IV . [id number] [facility] with Sodium Bicarb (1 Meq/ml) 150 ml Rx#:[id number] Lacosamide IV 150 mg In 50 Sodium Chloride 0.9% 50 ml @ 100 mls/hr IVPB BID [facility] Rx#:[id number] Linezolid 600 mg In 300 150 Dextrose/Water 1 300ml. bag @ 150 mls/hr IVPB Q12H [facility] Rx#:[id number] Magnesium Sulfate-D5w Pmx 100 10 100 1 gm In Dextrose/Water 1 100ml.bag @ 100 mls/hr IVPB Q1H [facility] Rx#: [id number] Phenytoin Sodium Inj 1, 100 000 mg In Sodium Chloride 0.9% 100 ml @ 200 mls/hr IVPB ONCE [facility] Rx#: [id number] Pressure Bag 36 36 6 Sodium Acetate 30 meq 715 780 130 Potassium Chloride 30 meq Magnesium Sulfate gm 0.5 gm Calcium Gluconate 2 gm In Amino Acids 5 %/ Dextrose 20 % 1,000 ml @ 65 mls/hr IV .BY DURATION [facility] Rx#:[id number] levETIRAcetam IV 1,000 mg 100 100 In Saline 1 100ml.bag @ 400 mls/hr IVPB Q12HR [facility] Rx#:[id number] Intake, IV Titration 465.821 508.818 153.232 Amount Amiodarone 450 mg In 145.554 329.999 Dextrose 5% in Water 250 ml @ 1 MG/MIN 33.333 mls/ hr IV .Q7H30M [facility] Rx#: [id number] Midazolam HCl 50 mg In 70.267 97.017 34.65 Sodium Chloride 0.9% 40 ml @ 6 MG/HR 6 mls/hr IV .Q8H20M [facility] Rx#:[id number] Norepinephrine 32 mg In 250.000 81.802 118.582 Sodium Chloride 0.9% 218 ml @ 0.5 MCG/KG/MIN 25. 547 mls/hr IV .Q9H48M [facility] Rx#:[id number] Output: Gastric Drainage 750 Urine 790 695 75 Other: Voiding Method Indwelling Catheter Indwelling Catheter ABP, PAP, CO, CI - Last Documented Arterial Blood Pressure 146/132 - Labs CBC & Chem 7: 08/26/22 05:44 08/27/22 05:50 Labs: Abnormal Lab Results - Last 24 Hours (Table) 08/26/22 08/26/22 08/26/22 Range/Units 12:59 16:59 17:02 ABG pH (7.35-7.45) ABG pCO2 (35-45) mmHg ABG Total CO2 (19-24) mmol/L ABG O2 Saturation (94-97) % Sodium (137-145) mmol/L Potassium 3.3 L (3.5-5.1) mmol/L Chloride (98-107) mmol/L BUN (7-17) mg/dL Creatinine (0.52-1.04) mg/dL Glucose (74-99) mg/dL POC Glucose (mg/dL) 393 H 475 H (70-110) mg/dL Calcium (8.4-10.2) mg/dL Ionized Calcium [place] (4.5-5.3) mg/dL Phosphorus (2.5-4.5) mg/dL AST (14-36) U/L Alkaline Phosphatase (38-126) U/L Total Protein (6.3-8.2) g/dL Albumin (3.5-5.0) g/dL 08/26/22 08/27/22 08/27/22 Range/Units 20:58 00:41 04:15 ABG pH (7.35-7.45) ABG pCO2 (35-45) mmHg ABG Total CO2 (19-24) mmol/L ABG O2 Saturation (94-97) % Sodium (137-145) mmol/L Potassium (3.5-5.1) mmol/L Chloride (98-107) mmol/L BUN (7-17) mg/dL Creatinine (0.52-1.04) mg/dL Glucose (74-99) mg/dL POC Glucose (mg/dL) 466 H 389 H 489 H (70-110) mg/dL Calcium (8.4-10.2) mg/dL Ionized Calcium [place] (4.5-5.3) mg/dL Phosphorus (2.5-4.5) mg/dL AST (14-36) U/L Alkaline Phosphatase (38-126) U/L Total Protein (6.3-8.2) g/dL Albumin (3.5-5.0) g/dL 08/27/22 08/27/22 08/27/22 Range/Units 05:31 05:50 05:50 ABG pH 7.30 L (7.35-7.45) ABG pCO2 48 H (35-45) mmHg ABG Total CO2 25 H (19-24) mmol/L ABG O2 Saturation 97.4 H (94-97) % Sodium 131 L (137-145) mmol/L Potassium 3.1 L (3.5-5.1) mmol/L Chloride 96 L (98-107) mmol/L BUN 75 H (7-17) mg/dL Creatinine 1.82 H (0.52-1.04) mg/dL Glucose 423 H (74-99) mg/dL POC Glucose (mg/dL) (70-110) mg/dL Calcium 6.1 L* (8.4-10.2) mg/dL Ionized Calcium [place] 4.0 L (4.5-5.3) mg/dL Phosphorus 4.9 H (2.5-4.5) mg/dL AST 42 H (14-36) U/L Alkaline Phosphatase 177 H (38-126) U/L Total Protein 4.2 L (6.3-8.2) g/dL Albumin 1.6 L (3.5-5.0) g/dL 08/27/22 08/27/22 Range/Units 06:14 09:13 ABG pH (7.35-7.45) ABG pCO2 (35-45) mmHg ABG Total CO2 (19-24) mmol/L ABG O2 Saturation (94-97) % Sodium (137-145) mmol/L Potassium (3.5-5.1) mmol/L Chloride (98-107) mmol/L BUN (7-17) mg/dL Creatinine (0.52-1.04) mg/dL Glucose (74-99) mg/dL POC Glucose (mg/dL) 483 H 311 H (70-110) mg/dL Calcium (8.4-10.2) mg/dL Ionized Calcium [place] (4.5-5.3) mg/dL Phosphorus (2.5-4.5) mg/dL AST (14-36) U/L Alkaline Phosphatase (38-126) U/L Total Protein (6.3-8.2) g/dL Albumin (3.5-5.0) g/dL Microbiology - Last 24 Hours (Table) 08/23/22 11:40 Blood Culture Gram Stain - Final Blood Blood Culture - Final Enterococcus faecium VRE
--- NOTE | 2022-08-27 13:16 | P.PN ---
Subjective Progress Note Date: 08/27/22 Principal diagnosis: Acute on chronic hypoxic respiratory failure secondary to acute diastolic congestive heart failure, and septic shock. With abdominal sepsis and bowel perforation. 08/20/2022, I'm seeing the patient for a follow-up. Since yesterday, the patient has taken a turn to the worse. As of yesterday, the patient started having episodes of fever with a T-max of 103.1. At the same time, the patient's blood pressure was getting more soft and the patient was becoming more hypotensive in the urine output dropped considerably. As such, the patient had to be placed on a higher dose of pressors. The patient was given a total of 2 L of IV fluids. Vancomycin was also added to the regimen as the patient is taking currently a combination of Zerbaxa and Eraxis. On today's evaluation, the patient is still off sedation. The patient is on a mechanical ventilator on assist control mode of mechanical ventilation rate of 28 with a tidal volume of 400 and a PEEP of 5 and FiO2 of 40%. The chest x-ray shows limited bibasilar pulmonary infiltrates. ET tube is in a good location. No signs of any consolidation or pulmonary edema. The blood gas shows a pH of 7.2 with a pCO2 of 33 and a pO2 of 76. As such, the patient has become progressively more acidotic. Hemodynamically, the patient has become more hypotensive and the patient is currently on a combination of vasopressin physiologic dose and a norepinephrine had to be brought up to 0.2 mcg/kg/m. Urine output is extremely low at this point in time. The white cell count has come up to 26.6 from 19.9 a nd the hemoglobin is at 8.7. Noted the patient was given units of packed RBC for a hemoglobin of 6.9 yesterday and hemoglobin is at 8.7 today. The patient has become also acidotic. Urine is at 67 with a creatinine of 1.4. Serum bicarb is at 17 and this is a non-anion gap metabolic acidosis. Sodium is at 141 with a potassium level of 4.7. LFTs are normal. The patient is receiving TPN through a midline in the left upper extremity at the rate of 68 mL an hour. She also has a triple-lumen catheter in the left subclavian. The patient is in a positive fluid balance. The patient is still febrile. The patient is stooling. The laxatives have been discontinued. She is currently has a fecal management system in Place and stool was also sent for C. diff.. The patient is unresponsive to any verbal or painful stimulation at this point in time and she's been off sedation for the past 48 hours. His obvious component of metabolic encephalopathy secondary to ovulation comorbidities. She remains on amiodarone drip at 1 mg/m. She remains in atrial fibrillation. She is on anticoagulation with Eliquis 5 mg by mouth twice a day. Reevaluated today on 08/21/2022, patient remains on the ventilator, intubated mechanically ventilated, on assist control rate 28, volume 400 FiO2 40% PEEP of 5. ABG showed a pO2 of 82 pCO2 34 pH of 7.29, patient was placed on bicarb drip earlier by nephrology. She is maximized on norepinephrine at 0.5 mcg/kg/m she is also on amiodarone 1 mg/m vasopressin at 0.[address] of the abdomen yesterday showed bowel perforation and pneumoperitoneum of blood is positive for enterococcus. Patient is atrial fibrillation with RVR. Family today is at bedside, and had a long discussion with the and the daughter, explained to them that her condition is basically extremely poor, and the patient will not make it considering her new finding of abdominal sepsis. They were made aware yesterday by the surgeon about her bowel perforation, the surgeon and the family felt that she is extremely high surgical risk, hence no surgery was done for her abdominal sepsis and bowel perforation. In the meantime the patient is maximized on pressors she is also on antibiotics, her WBC scan is 17.8 hemoglobin is 8.2 bicarb is 16 BUN is 76 creatinine 1.73. The primary care physician Dr. Hartman talk to the about her condition and he was able to change her CODE STATUS to DO NOT RESUSCITATE CODE STATUS. However the family is still not agreeable to consider comfort care measures. I even suggested stopping the presses and down the line consider comfort care but not yet at this point. Family does not seem to be very agreeable. Patient is on good course of antibiotics, which is also on antifungal therapy. Also on bronchodilators. Being followed by infectious disease and now she is on daptomycin, patient is also on Eraxis, and zerbaxa Patient was reevaluated today on 08/22/22, admitted ICU intubated mechanically ventilated. She is maximized on pressors, she is on assist control rate of 28th of volume 400 FiO2 40% PEEP of 5 ABG showed a pO2 of 65 pCO2 36 pH of 7.31. Patient is on 0.5 g ventricular per minute of norepinephrine 0.04 units per minute of vasopressin remains on bicarb drip, remains on amiodarone 1 mg/m and her normal saline at 100 mL per hour. WBC count is 16.5 hemoglobin is 7.8. Sick metabolic profile is normal renal profile is abnormal with BUN of 83 creatinine 1.79 and remains on antibiotics as per infectious disease on the case. Chest x-ray showed bibasilar atelectasis and consolidations. And small tiny right-sided pleural effusion endotracheal tube and orogastric tube are in proper positions Reevaluated today on patient remains in the ICU, she is intubated and mechanically ventilated. Patient is on assist control rate of 28, tidal volume 400 FiO2 50% PEEP of 5 ABG showed a pO2 of 90 pCO2 39 pH of 7.31. Patient is still maximized on pressors including norepinephrine at 0.5 mcg/kg/m vasopressin at 0.04 units per minute still receiving bicarb 3 A in 1 L of D5W at 75 mL per hour remains on amiodarone at 1 mg/m IV fluid at KVO heart rate is 110 to 130. Chest x-ray showing bibasilar infiltrates/atelectasis and small pleural effusions, not much of a change consultant the last couple of days. The peak and today's 15.3 hemoglobin is 7.5. Renal profile is abnormal with BUN of 83 creati nine 2.13. Ammonia level is 210. Not much of a change overall in the last 24 hours, patient remains very critically ill. And I believe her condition is mostly futile. is reluctant to consider comfort care measures on this patient. reevaluated today on 08/24/2022, patient remains in the ICU, remains intubated and mechanically ventilated, she is on assist control rate of 28 tidal volume 400 FiO2 50% PEEP of 5. ABG showed a pO2 of 84 pCO2 of 39 pH of 7.33. Patient remains maximized on pressors, she is on norepinephrine at 0.5 mcg/kg/m vasopressin 0.04 units per minute she is also on amiodarone 1 mg/m, still on sodium bicarb 3 A in 1 L of D5W running at 70 mL per hour. Patient is being considered now for tracheostomy and PEG tube placement, although I strongly believe that the patient's condition is futile. Her blood cultures are now positive for Enterococcus faecium, sputum cultures are positive for MRSA. I'm not surprised that her rate blood cultures are positive considering the patient has significantly profound abdominal sepsis and bowel perforation that being treated medically and not surgically.even if we change the lines on this patient, that would get reinfected since the patient has ongoing abdominal sepsis and possibly abdominal abscesses,hence I'm extremely reluctant to change her lines at this point when there is ongoing abdominal sepsis.patient is rece iving antibiotics, I have strongly recommended comfort care measures on this patient, but the seems to be reluctant to consider such recommendation, and he seems to be agreeable to proceed with tracheostomy and PEG tube placement which is again the extreme at this pointnonetheless the patient has been intubated now for almost 2 weeks. Reevaluated today on 08/25/2022, patient remains in the ICU, intubated and mechanically ventilated, he is on assist control rate of 28th of volume 400 FiO2 50% PEEP of 5 ABG showed a pO2 of 91 pCO2 42 pH of 7.28 patient is scheduled to undergo tracheostomy and PEG tube placement today, hence no changes were made in her present ventilator settings. Patient is still maximized on pressors including norepinephrine at 0.5 mcg/kg/m vasopressin at 0.04 units per minute she is also on amiodarone 1 mg/m TPN at 50 mL/h. Sodium bicarb 3 A in D5W at 75 mL per hour she is also on Versed 6 mg per hour. Chest x-ray shows worsening in her bilateral pneumonia. WBC count is getting worse today 21.7 hemoglobin is 7.3, basic metabolic profile showed slightly low potassium of 3.0, BUN is 79 creatinine 1.87, basically unchanged in the last couple of days. Serum albumin is 1.7. Ionized calcium is 5.2, patient received calcium earlier today Reevaluated today on 08/26/2022, patient remains in the ICU, intubated mechanically ventilated, she is now on assist control rate of 30 tidal volume 400 FiO2 45% PEEP is at 10. Try to go down on the feet, however the patient desaturated and I kept her on a PEEP of 10. ABG today showed a pO2 of 84 pCO2 47 pH of 7.26. Patient remains on multiple drips, she had uneventful tracheostomy placed on 08/25 yesterday. However she did not have a PEG tube, continues to have a nasogastric tube in place. She is now on norepinephrine at 0.47 vasopressin at 0.04 amiodarone at 1 mg/m, bicarb at 75 mL/h Versed at 7 mg per hour today I added Solu-Medrol 40 mg IV push every 8 hours. Mostly because on physical examination she has significant rhonchi and wheezes chest x-ray continues to show bilateral infiltrates. Not much of a change. Overall clinical status about the same and unchanged. Patient remains quite swollen and edematous. Remains on Lasix 80 mg IV push daily. WBC count is rising 21.3. Hemoglobin is 7.2. Basic metabolic profile is abnormal with low potassium and low sodium low bicarb elevated BUN of 76 creatinine 1.74. Ionized calcium is 5.6 ammonia level remains elevated at 171. Reevaluated today on 08/27/2022, patient remains in the ICU, intubated and mechanically ventilated sedated, patient is on multiple drips including norepinephrine at 0.3 mcg/kg/m vasopressin at 0.04, amiodarone, bicarbonate 75 ML per hour, and she is also on Versed 7 mg per hour. Patient is on assist control rate of 30 tidal volume 400 FiO2 45% PEEP of 10 ABG showed a pO2 of 100 pCO2 48 pH of 7.30. Patient has been receiving Versed, today I recommended that we stop the Versed and assess mental status if possible. Patient continues to have multiple medical issues, and I believe the patient is worsening clinically. Now she is developing ischemic changes in her fingers and in her toes, becoming more cyanotic. And that is mostly because of significant amount of pressors and the patient has been receiving. Today I recommended that we cut down on the presses since her blood pressure seems to be better and I recommended that we stop her Versed to assess mental status if possible. Hospice son is at bedside, updated the son in her condition, family is very well aware that her condition is extremely poor and futile, nonetheless the is not ready to let go. I have strongly recommended comfort care measures, remains reluctant to do so. WBC count today is 21.3 hemoglobin 7.2. Basic metabolic profile is normal however her BUN is 75 creatinine 1.8 2, chest x-ray continues to show bilateral air space disease and possibly bilateral pleural effusions tracheostomy seems to be in proper position. Objective - Vital Signs Vital signs: Vital Signs Temp 97.8 F 08/27/22 08:00 Pulse 128 H 08/27/22 12:08 Resp 30 H 08/27/22 12:08 BP 92/36 08/27/22 12:00 Pulse Ox 99 08/27/22 12:00 FiO2 45 08/27/22 11:46 Intake & Output 08/26/22 08/27/22 08/27/22 18:59 06:59 18:59 Intake Total 3036.821 2369.818 1344.915 Output Total 1540 695 375 Balance 8377.460 6806.818 969.915 Weight 140.9 kg 146.5 kg Intake: IV 2571 1861 1070 0.9% @ KVO 20 110 30 Anidulafungin 100 mg In 100 100 Sodium Chloride 0.9% 100 ml @ 84 mls/hr IVPB DAILY [facility] Rx#:[id number] Calcium Gluconate in NaCl 100 2 gm In Saline 1 100ml. bag @ 100 mls/hr IVPB ONCE ONE Rx#:[id number] Ceftolozane/Tazobactam 0. 100 100 100 75 gm In Sodium Chloride 0.9% 100 ml @ 100 mls/hr IV Q8HR [facility] Rx#:[id number] Dextrose 5% in Water 1, 900 525 150 000 ml @ 75 mls/hr IV . [id number] [facility] with Sodium Bicarb (1 Meq/ml) 150 ml Rx#:[id number] Lacosamide IV 150 mg In 50 50 Sodium Chloride 0.9% 50 ml @ 100 mls/hr IVPB BID [facility] Rx#:[id number] Linezolid 600 mg In 300 150 Dextrose/Water 1 300ml. bag @ 150 mls/hr IVPB Q12H [facility] Rx#:[id number] Magnesium Sulfate-D5w Pmx 100 10 200 1 gm In Dextrose/Water 1 100ml.bag @ 100 mls/hr IVPB Q1H [facility] Rx#: [id number] Phenytoin Sodium Inj 1, 100 000 mg In Sodium Chloride 0.9% 100 ml @ 200 mls/hr IVPB ONCE [facility] Rx#: [id number] Pressure Bag 36 36 15 Sodium Acetate 30 meq 715 780 325 Potassium Chloride 30 meq Magnesium Sulfate gm 0.5 gm Calcium Gluconate 2 gm In Amino Acids 5 %/ Dextrose 20 % 1,000 ml @ 65 mls/hr IV .BY DURATION [facility] Rx#:[id number] levETIRAcetam IV 1,000 mg 100 100 100 In Saline 1 100ml.bag @ 400 mls/hr IVPB Q12HR [facility] Rx#:[id number] Intake, IV Titration 465.821 508.818 274.915 Amount Amiodarone 450 mg In 145.554 329.999 Dextrose 5% in Water 250 ml @ 1 MG/MIN 33.333 mls/ hr IV .Q7H30M [facility] Rx#: [id number] Insulin Regular 100 unit 6.333 In Sodium Chloride 0.9% 100 ml @ Titrate IV .Q0M [facility] Rx#:[id number] Magnesium Sulfate-D5w Pmx 100 1 gm In Dextrose/Water 1 100ml.bag @ 100 mls/hr IVPB Q1H [facility] Rx#: [id number] Midazolam HCl 50 mg In 70.267 97.017 50.00 Sodium Chloride 0.9% 40 ml @ 6 MG/HR 6 mls/hr IV .Q8H20M [facility] Rx#:[id number] Norepinephrine 32 mg In 250.000 81.802 118.582 Sodium Chloride 0.9% 218 ml @ 0.5 MCG/KG/MIN 25. 547 mls/hr IV .Q9H48M [facility] Rx#:[id number] Output: Gastric Drainage 750 Urine 790 695 375 Other: Voiding Method Indwelling Catheter Indwelling Catheter ABP, PAP, CO, CI - Last Documented Arterial Blood Pressure 93/37 - Exam GENERAL EXAM: Intubated, sedated, 87-year-old morbidly obese female, sedated, not in distress intubated and mechanically ventilated HEAD: Normocephalic. Atraumatic. EYES: Sluggish reaction of pupils, equal size. NOSE: Nasogastric tube secured in place. Clear with pink turbinates. THROAT: Oral endotracheal tube in place. NECK: No masses, no JVD. CHEST: No chest wall deformity. LUNGS: Rhonchi and wheezes noted bilaterally today CVS: S1 and S2 normal with no audible murmur, irregular rhythm. ABDOMEN: Obese soft nontender, diminished bowel sounds, significant abdominal wall edema is noted. SKIN: No rashes CENTRAL NERVOUS SYSTEM: Sedated,Could not assess. EXTREMITIES: 3+ peripheral edema. Changes of chronic venous stasis. Significant cyanosis noted in her toes bilaterally and in the tips of fingers bilaterally - Labs CBC & Chem 7: 08/26/22 05:44 08/27/22 12:17 Labs: Abnormal Lab Results - Last 24 Hours (Table) 08/26/22 08/26/22 08/26/22 Range/Units 16:59 17:02 20:58 ABG pH (7.35-7.45) ABG pCO2 (35-45) mmHg ABG Total CO2 (19-24) mmol/L ABG O2 Saturation (94-97) % Sodium (137-145) mmol/L Potassium 3.3 L (3.5-5.1) mmol/L Chloride (98-107) mmol/L BUN (7-17) mg/dL Creatinine (0.52-1.04) mg/dL Glucose (74-99) mg/dL POC Glucose (mg/dL) 475 H 466 H (70-110) mg/dL Calcium (8.4-10.2) mg/dL Ionized Calcium [place] (4.5-5.3) mg/dL Phosphorus (2.5-4.5) mg/dL AST (14-36) U/L Alkaline Phosphatase (38-126) U/L Total Protein (6.3-8.2) g/dL Albumin (3.5-5.0) g/dL 08/27/22 08/27/22 08/27/22 Range/Units 00:41 04:15 05:31 ABG pH 7.30 L (7.35-7.45) ABG pCO2 48 H (35-45) mmHg ABG Total CO2 25 H (19-24) mmol/L ABG O2 Saturation 97.4 H (94-97) % Sodium (137-145) mmol/L Potassium (3.5-5.1) mmol/L Chloride (98-107) mmol/L BUN (7-17) mg/dL Creatinine (0.52-1.04) mg/dL Glucose (74-99) mg/dL POC Glucose (mg/dL) 389 H 489 H (70-110) mg/dL Calcium (8.4-10.2) mg/dL Ionized Calcium [place] (4.5-5.3) mg/dL Phosphorus (2.5-4.5) mg/dL AST (14-36) U/L Alkaline Phosphatase (38-126) U/L Total Protein (6.3-8.2) g/dL Albumin (3.5-5.0) g/dL 08/27/22 08/27/22 08/27/22 Range/Units 05:50 05:50 06:14 ABG pH (7.35-7.45) ABG pCO2 (35-45) mmHg ABG Total CO2 (19-24) mmol/L ABG O2 Saturation (94-97) % Sodium 131 L (137-145) mmol/L Potassium 3.1 L (3.5-5.1) mmol/L Chloride 96 L (98-107) mmol/L BUN 75 H (7-17) mg/dL Creatinine 1.82 H (0.52-1.04) mg/dL Glucose 423 H (74-99) mg/dL POC Glucose (mg/dL) 483 H (70-110) mg/dL Calcium 6.1 L* (8.4-10.2) mg/dL Ionized Calcium [place] 4.0 L (4.5-5.3) mg/dL Phosphorus 4.9 H (2.5-4.5) mg/dL AST 42 H (14-36) U/L Alkaline Phosphatase 177 H (38-126) U/L Total Protein 4.2 L (6.3-8.2) g/dL Albumin 1.6 L (3.5-5.0) g/dL 08/27/22 08/27/22 08/27/22 Range/Units 09:13 11:07 12:27 ABG pH (7.35-7.45) ABG pCO2 (35-45) mmHg ABG Total CO2 (19-24) mmol/L ABG O2 Saturation (94-97) % Sodium (137-145) mmol/L Potassium (3.5-5.1) mmol/L Chloride (98-107) mmol/L BUN (7-17) mg/dL Creatinine (0.52-1.04) mg/dL Glucose (74-99) mg/dL POC Glucose (mg/dL) 311 H 464 H 429 H (70-110) mg/dL Calcium (8.4-10.2) mg/dL Ionized Calcium [place] (4.5-5.3) mg/dL Phosphorus (2.5-4.5) mg/dL AST (14-36) U/L Alkaline Phosphatase (38-126) U/L Total Protein (6.3-8.2) g/dL Albumin (3.5-5.0) g/dL Microbiology - Last 24 Hours (Table) 08/23/22 11:40 Blood Culture Gram Stain - Final Blood Blood Culture - Final Enterococcus faecium VRE Assessment and Plan Assessment: Impression: Acute on chronic hypoxic respiratory failure Acute on chronic diastolic congestive heart failure Abdominal sepsis and septic shock Anion gap metabolic acidosis, improving but not resolved. Multifactorial. Urinary tract infection secondary to Enterococcus faecalis and pseudomonas ae ruginosa bacteremia secondary to enterococcus faecium Systemic candidiasis with positive cultures for Ange. Atrial fibrillation with RVR requiring amiodarone drip Acute on chronic kidney disease Recent history of COVID-19 infection History of valvular heart disease with aortic stenosis, patient is an excellent set up for endocarditis Acute on chronic anemia History of underlying COPD History of diastolic congestive heart failure Recommendation: Updated the son at bedside about her condition however he stated to me that is still not ready to let go although the family is convinced that she is nondistended do well and she will not make it. Continue ventilatory support Continue Solu-Medrol. Continue hemodynamic support however cut down as much as possible on norepinephrine and vasopressin if possible Continue present supportive care measures Continue antibiotics as per infectious disease on the case. Continue GI and DVT prophylaxis continue lactulose Patient is critically ill Condition is futile, family including son and and his daughter are all aware. We will continue to follow Critical care time is over 30 minutes Time with Patient: Greater than 30
--- NOTE | 2022-08-27 13:28 | P.PN ---
Subjective Progress Note Date: 08/27/22 08/27/2022: Patient was seen for a follow-up. Patient continues to be significantly encephalopathic. No obvious shoulder twitching on the right side was observed. Patient currently on Versed drip 7 mg per hour. Also on other medications as mentioned from yesterday. Patient has tracheostomy. Awaiting PEG placement. Patient currently on Levophed at 36 mcg/m(0.25 g microgram per minute), and vasopressin 0.02 units per minute. 08/26/2022: Patient was seen for a follow-up. Patient is clinically unchanged. However the seizure-like activity involving right shoulder has completely resolved. Patient currently on Versed 7 mg/h drip. Also on amiodarone, norepinephrine 0.47 mcg/mg per hour, vasopressin 0.04 units per minute. Also on bicarbonate drip. Patient has not had PEG tube placed yet. Patient's believes that when the PEG tube is placed, she will get nutrition and she will get better. Also discussed with patient's daughter and her , who was s itting in the waiting area. Patient's also believes the seizures are related to issues with the lower back region. 08/25/2022: Patient was seen for a follow-up. Patient's and patient's daughter were both present. Patient continues to be comatose. She has intermittent rhythmic twitching of the right shoulder. Patient is already on high dose Keppra, Vimpat adjusted to her renal functions, and Versed drip. Patient already has received Dilantin 1 g IV PB and she is still twitching in the right shoulder. Dilantin level came as 4.5. Patient will receive another loading dose of Dilantin 1 g. Target Dilantin level 12-20. Patient's toes are getting more dusky. Patient has developed some blisters, but that happened before she received Dilantin, therefore not related to Dilantin ALLERGY. Patient has generalized anasarca. 08/24/2022: Patient was seen for a follow-up. Patient is undergoing EEG at this time. Patient continues to have PLEDS. Patient was given Ativan 2 mg without much improvement, then repeated at another 2 mg Ativan. Patient subsequently received Versed 5 mg IV push without improvement, started on Versed drip 5 mg per hour. Patient states on pressors with vasopressin and Levophed. Patient continues to be comatose. Occasional twitching of the right shoulder noticed. I had discussed case with Dr. Hagen yesterday after he reported abnormal prolonged EEG about transfer patient to [facility], but he mentioned that beds were not available. 08/23/2022: Patient was seen for a follow-up. Patient is intubated, not on any sedation. She is on full pressors with Levophed and vasopressin. Also on 3 antibiotics, anti-seizure medications including Keppra and Vimpat. Patient had sporadic seizure-like activity with facial twitching. No definite arm twitching noted. Episode lasted for about 30 minutes. At present there is no twitching noticeable. Patient's and grandchildren were present today. 08/22/2022: Patient was seen for a follow-up. Patient's daughter was also present today. Patient recently had temperature of 100.3. About an hour prior to spiking temperature, patient had some facial twitching, with jaw opening and closing, that lasted for half an hour. No upper extremity movement was noted at that time. Patient continues to be on Keppra 750 mg twice a day. Patient continues to be on high-dose pressors. Patient at present is no code, but full medical treatment. 08/21/2022: Patient initially seen by Dr. Edouard Peres. Please refer to his note for details. Patient is an 87-year-old female with altered mental status. Patient has septic encephalopathy. Patient had a seizure-like activity yesterday at 1:15 PM with head jerking and left arm jerking. Patient was given Ativan 4 mg, and the seizure-like stopped. Patient was given a loading dose of Keppra 1000 mg IV and then maintained on 500 mg twice a day. Patient had again seizure-like activity at 3 AM lasted for 45 minutes and then 5 AM and patient was given another loading dose of 500 mg Keppra. Nurse called me today at around 7:30 AM. It lasted for 20-30 minutes. Patient was again given Valium 4 mg in the seizure- like activity resolved. Patient was started on Vimpat 100 mg twice a day IV PB. EEG was performed today, which was abnormal sleep EEG due to background slowing of moderate degree. Some sharply contoured waves were seen in the left parietal region. No clear-cut epileptiform activity was seen. Objective - Vital Signs Vital signs: Vital Signs Temp 97.8 F 08/27/22 08:00 Pulse 128 H 08/27/22 12:08 Resp 30 H 08/27/22 12:08 BP 92/36 08/27/22 12:00 Pulse Ox 99 08/27/22 12:00 FiO2 45 08/27/22 11:46 Intake & Output 08/26/22 08/27/22 08/27/22 18:59 06:59 18:59 Intake Total 3036.821 2369.818 1344.915 Output Total 1540 695 375 Balance 5609.324 2695.818 969.915 Weight 140.9 kg 146.5 kg Intake: IV 2571 1861 1070 0.9% @ KVO 20 110 30 Anidulafungin 100 mg In 100 100 Sodium Chloride 0.9% 100 ml @ 84 mls/hr IVPB DAILY [facility] Rx#:[id number] Calcium Gluconate in NaCl 100 2 gm In Saline 1 100ml. bag @ 100 mls/hr IVPB ONCE ONE Rx#:[id number] Ceftolozane/Tazobactam 0. 100 100 100 75 gm In Sodium Chloride 0.9% 100 ml @ 100 mls/hr IV Q8HR [facility] Rx#:[id number] Dextrose 5% in Water 1, 900 525 150 000 ml @ 75 mls/hr IV . [id number] [facility] with Sodium Bicarb (1 Meq/ml) 150 ml Rx#:[id number] Lacosamide IV 150 mg In 50 50 Sodium Chloride 0.9% 50 ml @ 100 mls/hr IVPB BID [facility] Rx#:[id number] Linezolid 600 mg In 300 150 Dextrose/Water 1 300ml. bag @ 150 mls/hr IVPB Q12H [facility] Rx#:[id number] Magnesium Sulfate-D5w Pmx 100 10 200 1 gm In Dextrose/Water 1 100ml.bag @ 100 mls/hr IVPB Q1H [facility] Rx#: [id number] Phenytoin Sodium Inj 1, 100 000 mg In Sodium Chloride 0.9% 100 ml @ 200 mls/hr IVPB ONCE [facility] Rx#: [id number] Pressure Bag 36 36 15 Sodium Acetate 30 meq 715 780 325 Potassium Chloride 30 meq Magnesium Sulfate gm 0.5 gm Calcium Gluconate 2 gm In Amino Acids 5 %/ Dextrose 20 % 1,000 ml @ 65 mls/hr IV .BY DURATION [facility] Rx#:[id number] levETIRAcetam IV 1,000 mg 100 100 100 In Saline 1 100ml.bag @ 400 mls/hr IVPB Q12HR [facility] Rx#:[id number] Intake, IV Titration 465.821 508.818 274.915 Amount Amiodarone 450 mg In 145.554 329.999 Dextrose 5% in Water 250 ml @ 1 MG/MIN 33.333 mls/ hr IV .Q7H30M [facility] Rx#: [id number] Insulin Regular 100 unit 6.333 In Sodium Chloride 0.9% 100 ml @ Titrate IV .Q0M [facility] Rx#:[id number] Magnesium Sulfate-D5w Pmx 100 1 gm In Dextrose/Water 1 100ml.bag @ 100 mls/hr IVPB Q1H [facility] Rx#: [id number] Midazolam HCl 50 mg In 70.267 97.017 50.00 Sodium Chloride 0.9% 40 ml @ 6 MG/HR 6 mls/hr IV .Q8H20M [facility] Rx#:[id number] Norepinephrine 32 mg In 250.000 81.802 118.582 Sodium Chloride 0.9% 218 ml @ 0.5 MCG/KG/MIN 25. 547 mls/hr IV .Q9H48M [facility] Rx#:[id number] Output: Gastric Drainage 750 Urine 790 695 375 Other: Voiding Method Indwelling Catheter Indwelling Catheter ABP, PAP, CO, CI - Last Documented Arterial Blood Pressure 93/37 - Exam Patient is an elderly female, who is comatose. Patient is not on any sedation. Sedation discontinued since 08/16/2022. Patient does not respond to painful stimuli or calling out loudly. No focal seizure noted involving right shoulder. No twitching of the facial region. Pupils are equal, round and reacting bilaterally. Oculocephalics are absent, corneals absent. Reflexes are almost absent. Patient has significant peripheral edema. Patient's fingers and toes are dusky, cyanotic. - Labs CBC & Chem 7: 08/26/22 05:44 08/27/22 12:17 Labs: Abnormal Lab Results - Last 24 Hours (Table) 08/26/22 08/26/22 08/26/22 Range/Units 16:59 17:02 20:58 ABG pH (7.35-7.45) ABG pCO2 (35-45) mmHg ABG Total CO2 (19-24) mmol/L ABG O2 Saturation (94-97) % Sodium (137-145) mmol/L Potassium 3.3 L (3.5-5.1) mmol/L Chloride (98-107) mmol/L BUN (7-17) mg/dL Creatinine (0.52-1.04) mg/dL Glucose (74-99) mg/dL POC Glucose (mg/dL) 475 H 466 H (70-110) mg/dL Calcium (8.4-10.2) mg/dL Ionized Calcium [place] (4.5-5.3) mg/dL Phosphorus (2.5-4.5) mg/dL AST (14-36) U/L Alkaline Phosphatase (38-126) U/L Total Protein (6.3-8.2) g/dL Albumin (3.5-5.0) g/dL 08/27/22 08/27/22 08/27/22 Range/Units 00:41 04:15 05:31 ABG pH 7.30 L (7.35-7.45) ABG pCO2 48 H (35-45) mmHg ABG Total CO2 25 H (19-24) mmol/L ABG O2 Saturation 97.4 H (94-97) % Sodium (137-145) mmol/L Potassium (3.5-5.1) mmol/L Chloride (98-107) mmol/L BUN (7-17) mg/dL Creatinine (0.52-1.04) mg/dL Glucose (74-99) mg/dL POC Glucose (mg/dL) 389 H 489 H (70-110) mg/dL Calcium (8.4-10.2) mg/dL Ionized Calcium [place] (4.5-5.3) mg/dL Phosphorus (2.5-4.5) mg/dL AST (14-36) U/L Alkaline Phosphatase (38-126) U/L Total Protein (6.3-8.2) g/dL Albumin (3.5-5.0) g/dL 0208/27/22 08/27/22 Range/Units 05:50 05:50 06:14 ABG pH (7.35-7.45) ABG pCO2 (35-45) mmHg ABG Total CO2 (19-24) mmol/L ABG O2 Saturation (94-97) % Sodium 131 L (137-145) mmol/L Potassium 3.1 L (3.5-5.1) mmol/L Chloride 96 L (98-107) mmol/L BUN 75 H (7-17) mg/dL Creatinine 1.82 H (0.52-1.04) mg/dL Glucose 423 H (74-99) mg/dL POC Glucose (mg/dL) 483 H (70-110) mg/dL Calcium 6.1 L* (8.4-10.2) mg/dL Ionized Calcium [place] 4.0 L (4.5-5.3) mg/dL Phosphorus 4.9 H (2.5-4.5) mg/dL AST 42 H (14-36) U/L Alkaline Phosphatase 177 H (38-126) U/L Total Protein 4.2 L (6.3-8.2) g/dL Albumin 1.6 L (3.5-5.0) g/dL 08/27/22 08/27/22 08/27/22 Range/Units 09:13 11:07 12:27 ABG pH (7.35-7.45) ABG pCO2 (35-45) mmHg ABG Total CO2 (19-24) mmol/L ABG O2 Saturation (94-97) % Sodium (137-145) mmol/L Potassium (3.5-5.1) mmol/L Chloride (98-107) mmol/L BUN (7-17) mg/dL Creatinine (0.52-1.04) mg/dL Glucose (74-99) mg/dL POC Glucose (mg/dL) 311 H 464 H 429 H (70-110) mg/dL Calcium (8.4-10.2) mg/dL Ionized Calcium [place] (4.5-5.3) mg/dL Phosphorus (2.5-4.5) mg/dL AST (14-36) U/L Alkaline Phosphatase (38-126) U/L Total Protein (6.3-8.2) g/dL Albumin (3.5-5.0) g/dL Microbiology - Last 24 Hours (Table) 08/23/22 11:40 Blood Culture Gram Stain - Final Blood Blood Culture - Final Enterococcus faecium VRE Assessment and Plan Assessment: Altered mental status multifactorial as mentioned below. Patient primarily has septic encephalopathy. Also has some component of metabolic encephalopathy. Has been off sedation for 8 days. Abnormal prolonged 2.5 hours EEG, with evidence of runs of 1 Hz LPDs plus there was lateralized periodic discharges, sharp and slow and poly-sharp and slow waves over the left parietal region with spread more anteriorly. There are also some discharges semi-periodic LPDs over the right posterior quadrants. Probable perforated viscus with pneumoperitoneum. Septicemia, with leukocytosis and blood culture persistently positive with enterococcus faecium. Blood cultures positive as of 08/23/2022. White cells slightly worse today 21,000. Hepatic encephalopathy with initial elevated ammonia 214, repeat 210, and yesterday is 171. Septic shock requiring high-dose pressors and seems has urinary tract infection with urine culture positive for Enterococcus faecalis and Pseudomonas aeruginosa as well as systemic candidiasis Atrial fibrillation on eliquis (which has hx of afib) , currently on hold. Acute on chronic hypoxemic respiratory failure secondary to diastolic congestive heart failure requiring intubation mechanical ventilation Acute on chronic kidney disease History of TIAs/stroke History of coronary artery disease with stent Hypertension Hyperlipidemia Diabetes mellitus Anemia Hypocalcemia Plan: * Clinically it appears partial status has resolved. No focal twitches noticed at this time. ICU staff wants patient to be taken off sedation. We will c heck stat EEG, and if no epileptiform activity, we'll start weaning down Versed. Discussed with patient's daughter, who agreed for only routine EEG, does not want prolonged EEG at this time. We will discuss after EEG is completed. * Patient already on high dose Vimpat 150 mg twice a day, Keppra 1000 mg twice a day (both of them adjusted for current renal functions). Also on Versed 7 mg per hour. Patient also on Dilantin. Her Dilantin level 6.4 this morning. Maintenance dose increased to 300 mg twice a day. We will recheck a free and total Dilantin level in the morning. Await Keppra level. Cannot give Depakote because of hyperammonemia. * Continue Ativan 1-2 mg every 4 hours when necessary seizure. Patient also on Versed drip 7 mg per hour. * Prolonged 2.5 hours EEG on 08/24/2022 was abnormal with evidence of runs of 1 Hz LPDs plus there was lateralized periodic discharges, sharp and slow and poly-sharp and slow waves over the left parietal region with spread more anteriorly. There are also some discharges semi-periodic LPDs over the right posterior quadrants. Exact cause remains uncertain. * Repeat CT head 08/24/2022, which did not reveal any acute intracranial process. However there is possible bilateral mastoiditis and middle ear infections spread. Correlate clinically. Patchy paranasal sinus disease. I personally reviewed CT head, and there is evidence of air-fluid level in the left maxillary sinus. Agree with evidence of possible bilateral mastoiditis and fluid in the middle ear. I discussed with PCP about possibility of lumbar puncture. ID is also on board. Patient currently on Eraxis, Zerbaxa, daptomycin. Per ID, patient is already covered well for meningitis. * Patient's initial Ammonia was 214. Yesterday was 171. Patient on lactulose. * CT abdomen revealed possibility of perforated viscus. Surgery on board. Patient was considered not a candidate for surgery because of hemodynamic instability. * Patient is on high dose pressors * Hypocalcemia improved, 6.1 today. Recommend appropriate treatment as per IM and critical care. * We'll defer the rest of medical management to primary and ICU team * The patient condition is very critical. Prognosis appears very guarded to poor at this time. Patient's daughter and patient's are aware of the prognosis. * Plan discussed with the patient's family. Addendum: Patient's stat EEG preliminary report revealed severe abnormal EEG with burst suppressed pattern. The suppression lasting between 40-60 seconds, with the maximal lasting for 87 seconds. The bursts lasting for around 5-12 seconds, consisting of high amplitude spike/polyspike's or PLEDs mainly involving bilateral parietal region, left more than right. Frequently extending to the frontal regions as well. Overall this EEG is severely abnormal, worse as compared to EEG from 08/24/2022. Overall suggestive of severe encephalopathy as can be seen with an anoxic, toxic metabolic or epileptic encephalopathy. 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 I had a very prolonged discussion with patient's daughter and her were present at the time. She wants to keep him on same dose of seizure medications including Versed at 7 mg per hour. She will discuss with her dad, and let us know. I did inform patient's daughter about poor prognosis. Patient's daughter seems to be still optimistic about her mother's condition. Dr. Edouard Peres will resume neurology service in the morning. Time with Patient: Greater than 30
[2022-08-27 13:34] LABS: Glucose,Whole Blood 452 mg/dL (70-110)
[2022-08-27 14:43] LABS: Glucose,Whole Blood 443 mg/dL (70-110)
[2022-08-27 15:09] LABS: Glucose,Whole Blood 441 mg/dL (70-110)
[2022-08-27 16:16] LABS: Glucose,Whole Blood 432 mg/dL (70-110)
[2022-08-27 18:00] LABS: Glucose,Whole Blood 424 mg/dL (70-110)
[2022-08-27 18:01] LABS: Glucose,Whole Blood 418 mg/dL (70-110)
[2022-08-27 19:12] LABS: Glucose,Whole Blood 406 mg/dL (70-110)
[2022-08-27 19:58] LABS: Glucose,Whole Blood 361 mg/dL (70-110)
[2022-08-27] MEDS: 1: MVI, ADULT NO.4 WITH VIT K 10 ML, TRACE (CONC-1ML/DOSE) 1 ML, SODIUM ACETATE 50 MEQ, IV SCH ×7 (20:19)
[2022-08-27] MEDS: AMIODARONE 200 MG TAB PO SCH (20:22)
[2022-08-27 21:08] LABS: Glucose,Whole Blood 341 mg/dL (70-110)
[2022-08-27 22:29] LABS: Glucose,Whole Blood 320 mg/dL (70-110)
--- NOTE | 2022-08-27 23:31 | EEG ---
ELECTROENCEPHALOGRAM REPORT PREAMBLE: This is an 87-year-old female with history of partial status epilepticus, had a followup EEG. CURRENT MEDICATIONS: 1. Vimpat. 2. Keppra. 3. Dilantin. 4. Versed at 7 mg/hour. EEG FINDINGS: This is a 21-channel portable EEG recorded with video component, utilizing 10/20 international system with referential and bipolar montages. The recording starts and continues with presence of burst suppressed pattern, in which bursts consist of high- amplitude spike or polyspike waves at 1 hertz, maximally involving the right or left central parietal region, independent and bisynchronous. This burst lasting for about 10 seconds follows by complete suppression lasting for 40 to 60 seconds, the longest lasting for 87 seconds. On nailbed pressure, the suppression was aborted earlier, noticed on multiple times. No motor activity was noticed during the entire study. IMPRESSION: This is a severely abnormal EEG due to presence of burst suppressed pattern with suppression lasting from 40 to 60 seconds, maximal of 87 seconds. The bursts lasting between 5-12 seconds, consist of high-amplitude bilateral periodic lateralized epileptiform discharges, mainly involving parietal region, asynchronous and bisynchronous, often extending to the frontal region as well. On provocation (nailbed pressure), the suppression was aborted almost immediately, noticed each time tried (x3). No motor activity was noted in the entire study. When compared to the EEG from 08/24/2022, the intermittent generalized suppression has become severely worse, and the epileptiform activity has continued. This can be seen with severe anoxic or toxic metabolic or epileptic encephalopathies. 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 Clinical correlation, follow-up EEG and a continuous EEG monitoring recommended. MMODL / ANITAN: [id number] / CRISTY
[2022-08-27 23:33] LABS: Glucose,Whole Blood 305 mg/dL (70-110)
[2022-08-28] MEDS: INSULIN REGULAR 100 UNIT in SODIUM CHLORIDE 0.9% 100 ML IV SCH ×4 (00:47→12:16)
[2022-08-28 00:48] LABS: Glucose,Whole Blood 278 mg/dL (70-110)
[2022-08-28 01:57] LABS: Glucose,Whole Blood 284 mg/dL (70-110)
[2022-08-28 02:54] LABS: Glucose,Whole Blood 282 mg/dL (70-110)
[2022-08-28 04:11] LABS: Glucose,Whole Blood 269 mg/dL (70-110)
[2022-08-28 04:29] LABS: Ionized Calcium 4.5 mg/dL (4.5-5.3)
[2022-08-28 04:38] LABS: Albumin 1.6 g/dL (3.5-5.0); Calcium 6.7 mg/dL (8.4-10.2); Magnesium 1.9 mg/dL (1.6-2.3); Phosphorus 3.6 mg/dL (2.5-4.5); Potassium 2.8 mmol/L (3.5-5.1); Total Bilirubin 0.3 mg/dL (0.2-1.3); Total Protein 4.1 g/dL (6.3-8.2)
[2022-08-28 04:40] LABS: Anisocytosis Slight; Basophils # (A) 0.1 k/uL (0-0.2); Basophils % (A) 0 %; Eosinophils % (A) 0 %; HCT 22.6 % (34.0-46.0); Hypochromasia Marked; Lymphocytes # (A) 1.1 k/uL (1.0-4.8); Lymphocytes % (A) 5 %; MCH 26.2 pg (25.0-35.0); MCHC 30.3 g/dL (31.0-37.0); MCV 86.4 fL (80.0-100.0); Mean Platelet Volume 9.5; Monocytes # (A) 1.4 k/uL (0-1.0); Monocytes % (A) 6 %; Neutrophils # (A) 19.4 k/uL (1.3-7.7); Neutrophils % (A) 87 %; Platelet Count 277 k/uL (150-450); Poikilocytosis Slight; RBC 2.62 m/uL (3.80-5.40); RDW 18.6 % (11.5-15.5); WBC 22.4 k/uL (3.8-10.6)
[2022-08-28 04:42] LABS: HGB 6.9 gm/dL (11.4-16.0)
[2022-08-28] MEDS: POTASSIUM BICARBONATE/CIT AC 20 MEQ TABLET.EFF NG-TUBE SCH ×3 (04:55→06:40)
[2022-08-28] MEDS: MIDAZOLAM HCL 50 MG in SODIUM CHLORIDE 0.9% 40 ML IV SCH ×3 (05:04→19:35)
[2022-08-28 05:09] LABS: Glucose,Whole Blood 245 mg/dL (70-110)
[2022-08-28] MEDS ORDERED: MAGNESIUM SULFATE-D5W PMX 1 GM in DEXTROSE/WATER 1 100ML.BAG IVPB ONE (05:17)
[2022-08-28 05:38] LABS: ABG Base Excess -4.8 mmol/L; ABG HCO3 22 mmol/L (21-25); ABG Oxygen Saturation 96.9 % (94-97); ABG PCO2 51 mmHg (35-45); ABG PH 7.25 (7.35-7.45); ABG PO2 95 mmHg (83-108); ABG TCO2 24 mmol/L (19-24)
[2022-08-28 05:41] LABS: Allen Test Performed? no
[2022-08-28 06:19] LABS: Glucose,Whole Blood 225 mg/dL (70-110)
[2022-08-28 07:13] LABS: Glucose,Whole Blood 207 mg/dL (70-110)
[2022-08-28] MEDS: polyethylene glycoL 3350 17 GM POWD.PACK PO SCH ×2 (07:27→20:46)
[2022-08-28] MEDS: LACTULOSE 20 GM/30 ML CUP PO SCH ×4 (07:27→20:46)
[2022-08-28] MEDS: IPRATROPIUM 0.5 MG/2.5 ML NEBU INHALATION SCH ×4 (08:02→20:43)
[2022-08-28] MEDS: FORMOTEROL FUMARATE 20 MCG/2 ML NEBU INHALATION SCH ×2 (08:02→20:43)
[2022-08-28] MEDS: ALBUTEROL NEBULIZED 2.5 MG/3 ML INHALATION SCH ×4 (08:02→20:43)
[2022-08-28] MEDS: BUDESONIDE 1 MG/2 ML NEBU INHALATION SCH ×2 (08:02→20:43)
[2022-08-28] MEDS: methylPREDNISolone SOD SUCCI 40 MG/ML 1 ML VIAL IV SCH ×3 (08:12→23:22)
[2022-08-28] MEDS: levETIRAcetam IV 1,000 MG in SALINE 1 100ML.BAG IVPB SCH ×2 (08:16→20:46)
[2022-08-28 08:22] LABS: Glucose,Whole Blood 193 mg/dL (70-110)
[2022-08-28] MEDS: CEFTOLOZANE/TAZOBACTAM 0.75 GM in SODIUM CHLORIDE 0.9% 100 ML IV SCH ×3 (08:36→23:46)
[2022-08-28] MEDS: ANIDULAFUNGIN 100 MG in SODIUM CHLORIDE 0.9% 100 ML IVPB SCH (08:36)
[2022-08-28] MEDS: FUROSEMIDE 100 MG in SODIUM CHLORIDE 0.9% 90 ML IV SCH ×2 (09:00→20:41)
[2022-08-28] MEDS: NOREPINEPHRINE 32 MG in SODIUM CHLORIDE 0.9% 218 ML IV SCH (10:08)
[2022-08-28] MEDS: VASOPRESSIN 60 UNIT in SODIUM CHLORIDE 0.9% 150 ML IV SCH (10:10)
[2022-08-28] MEDS: TAMSULOSIN 0.4 MG CAP.ER.24H PO SCH (10:15)
[2022-08-28] MEDS: AMIODARONE 200 MG TAB PO SCH ×2 (10:15→20:47)
[2022-08-28 10:29] LABS: Glucose,Whole Blood 174 mg/dL (70-110)
[2022-08-28] MEDS: LACOSAMIDE IV 150 MG in SODIUM CHLORIDE 0.9% 50 ML IVPB SCH ×2 (10:42→21:16)
--- NOTE | 2022-08-28 11:27 | P.PN ---
Subjective Progress Note Date: 08/28/22 Principal diagnosis: Sepsis/septic shock Patient is a 87-year-old female with multiple comorbidities presented to the hospital with a syncopal episode weakness subsequently hypotension, sepsis requiring transfer to the ICU and intubation on the vent. She patient did have a CT of abdominal pelvis completed on 08/20/2022 with evidence of pneumoperitoneum Gen. surgery discussed with the family currently being treated medically On today's evaluation that is 08/28/2022, the patient remains to be afebrile, the patient is requiring more pressor support compared to yesterday to maintain her blood pressure as per the nursing staff, the patient FiO2 is currently stable at 45 %, no significant purulent secretions through the ET , patient did have NG to suction, patient is on TPN for nutrition, patient is also on Lasix and insulin drip Objective - Vital Signs Vital signs: Vital Signs Temp 97.9 F 08/28/22 04:00 Pulse 105 H 08/28/22 09:00 Resp 30 H 08/28/22 09:00 BP 95/29 08/28/22 09:00 Pulse Ox 90 L 08/28/22 09:00 FiO2 45 08/28/22 08:04 Intake & Output 08/27/22 08/28/22 08/28/22 18:59 06:59 18:59 Intake Total 2600.083 1192.524 242.422 Output Total 585 1815 10 Balance 2014.083 -622.476 232.422 Weight 145.3 kg Intake: IV 1916 331 146 0.9% @ KVO 100 130 30 Anidulafungin 100 mg In 100 Sodium Chloride 0.9% 100 ml @ 84 mls/hr IVPB DAILY [facility] Rx#:[id number] Ceftolozane/Tazobactam 0. 200 75 gm In Sodium Chloride 0.9% 100 ml @ 100 mls/hr IV Q8HR [facility] Rx#:[id number] Dextrose 5% in Water 1, 150 000 ml @ 75 mls/hr IV . [id number] [facility] with Sodium Bicarb (1 Meq/ml) 150 ml Rx#:[id number] Furosemide 100 mg In 10 Sodium Chloride 0.9% 90 ml @ 10 MG/HR 10 mls/hr IV .Q10H [facility] Rx#: [id number] Lacosamide IV 150 mg In 50 Sodium Chloride 0.9% 50 ml @ 100 mls/hr IVPB BID [facility] Rx#:[id number] Linezolid 600 mg In 200 Dextrose/Water 1 300ml. bag @ 150 mls/hr IVPB Q12H [facility] Rx#:[id number] Magnesium Sulfate-D5w Pmx 200 1 gm In Dextrose/Water 1 100ml.bag @ 100 mls/hr IVPB Q1H [facility] Rx#: [id number] Pressure Bag 36 36 6 Sodium Acetate 30 meq 780 65 Potassium Chloride 30 meq Magnesium Sulfate gm 0.5 gm Calcium Gluconate 2 gm In Amino Acids 5 %/ Dextrose 20 % 1,000 ml @ 65 mls/hr IV .BY DURATION [facility] Rx#:[id number] levETIRAcetam IV 1,000 mg 100 100 100 In Saline 1 100ml.bag @ 400 mls/hr IVPB Q12HR [facility] Rx#:[id number] Intake, IV Titration 684.083 861.524 96.422 Amount Furosemide 100 mg In 79.833 Sodium Chloride 0.9% 90 ml @ 10 MG/HR 10 mls/hr IV .Q10H [facility] Rx#: [id number] Insulin Regular 100 unit 79.750 398.200 In Sodium Chloride 0.9% 100 ml @ Titrate IV .Q0M [facility] Rx#:[id number] Magnesium Sulfate-D5w Pmx 100 1 gm In Dextrose/Water 1 100ml.bag @ 100 mls/hr IVPB Q1H [facility] Rx#: [id number] Midazolam HCl 50 mg In 87.917 78.516 Sodium Chloride 0.9% 40 ml @ 6 MG/HR 6 mls/hr IV .Q8H20M [facility] Rx#:[id number] Mvi, Adult No.4 with Vit 130 K 10 ml Trace (Conc-1Ml/ Dose) 1 ml Sodium Acetate 30 meq Potassium Chloride 20 meq Magnesium Sulfate gm 0.5 gm Calcium Gluconate 1 gm In Amino Acids 5 %/Dextrose 20 % 1,000 ml @ 65 mls/ hr IV .BY DURATION [facility] Rx #:[id number] Mvi, Adult No.4 with Vit 65 K 10 ml Trace (Conc-1Ml/ Dose) 1 ml Sodium Acetate 50 meq Potassium Chloride 50 meq Magnesium Sulfate gm 1 gm Calcium Gluconate 3 gm In Amino Acids 5 %/Dextrose 20 % 1 ,000 ml @ 65 mls/hr IV . BY DURATION [facility] Rx#: [id number] Norepinephrine 32 mg In 210.356 165.055 31.422 Sodium Chloride 0.9% 218 ml @ 0.5 MCG/KG/MIN 25. 547 mls/hr IV .Q9H48M [facility] Rx#:[id number] Phenytoin Sodium Inj 300 50 mg In Sodium Chloride 0.9 % 50 ml @ 80 mls/hr IVPB Q12H [facility] Rx#:[id number] Vasopressin 60 unit In 156.06 9.920 Sodium Chloride 0.9% 150 ml @ 0.04 UNITS/MIN 6.12 mls/hr IV .Q24H [facility] Rx#: [id number] Output: Gastric Drainage 1000 Urine 585 215 10 Stool 600 Other: Voiding Method Indwelling Catheter Indwelling Catheter ABP, PAP, CO, CI - Last Documented Arterial Blood Pressure 108/45 - Exam GENERAL DESCRIPTION: An elderly female intubated on the vent RESPIRATORY SYSTEM: Unlabored breathing , decreased breath sounds at bases HEART: S1 S2 regular rate and rhythm , ABDOMEN: Soft , abdominal distention EXTREMITIES: Diffuse swelling bilateral lower extremity no redness - Labs CBC & Chem 7: 08/28/22 04:10 08/28/22 10:30 Labs: Abnormal Lab Results - Last 24 Hours (Table) 08/26/22 08/27/22 08/27/22 Range/Units 05:44 11:07 12:27 WBC (3.8-10.6) k/uL RBC (3.80-5.40) m/uL Hgb (11.4-16.0) gm/dL Hct (34.0-46.0) % MCHC (31.0-37.0) g/dL RDW (11.5-15.5) % Neutrophils # (1.3-7.7) k/uL Monocytes # (0-1.0) k/uL ABG pH (7.35-7.45) ABG pCO2 (35-45) mmHg Sodium (137-145) mmol/L Potassium (3.5-5.1) mmol/L Chloride (98-107) mmol/L BUN (7-17) mg/dL Creatinine (0.52-1.04) mg/dL Glucose (74-99) mg/dL POC Glucose (mg/dL) 464 H 429 H (70-110) mg/dL Calcium (8.4-10.2) mg/dL AST (14-36) U/L Alkaline Phosphatase (38-126) U/L Total Protein (6.3-8.2) g/dL Albumin (3.5-5.0) g/dL Levetiracetam 68.9 H (3.0-60.0) ug/mL 08/27/22 08/27/22 08/27/22 Range/Units 13:33 14:41 15:08 WBC (3.8-10.6) k/uL RBC (3.80-5.40) m/uL Hgb (11.4-16.0) gm/dL Hct (34.0-46.0) % MCHC (31.0-37.0) g/dL RDW (11.5-15.5) % Neutrophils # (1.3-7.7) k/uL Monocytes # (0-1.0) k/uL ABG pH (7.35-7.45) ABG pCO2 (35-45) mmHg Sodium (137-145) mmol/L Potassium (3.5-5.1) mmol/L Chloride (98-107) mmol/L BUN (7-17) mg/dL Creatinine (0.52-1.04) mg/dL Glucose (74-99) mg/dL POC Glucose (mg/dL) 452 H 443 H 441 H (70-110) mg/dL Calcium (8.4-10.2) mg/dL AST (14-36) U/L Alkaline Phosphatase (38-126) U/L Total Protein (6.3-8.2) g/dL Albumin (3.5-5.0) g/dL Levetiracetam (3.0-60.0) ug/mL 08/27/22 08/27/22 08/27/22 Range/Units 15:58 17:58 18:00 WBC (3.8-10.6) k/uL RBC (3.80-5.40) m/uL Hgb (11.4-16.0) gm/dL Hct (34.0-46.0) % MCHC (31.0-37.0) g/dL RDW (11.5-15.5) % Neutrophils # (1.3-7.7) k/uL Monocytes # (0-1.0) k/uL ABG pH (7.35-7.45) ABG pCO2 (35-45) mmHg Sodium (137-145) mmol/L Potassium (3.5-5.1) mmol/L Chloride (98-107) mmol/L BUN (7-17) mg/dL Creatinine (0.52-1.04) mg/dL Glucose (74-99) mg/dL POC Glucose (mg/dL) 432 H 424 H 418 H (70-110) mg/dL Calcium (8.4-10.2) mg/dL AST (14-36) U/L Alkaline Phosphatase (38-126) U/L Total Protein (6.3-8.2) g/dL Albumin (3.5-5.0) g/dL Levetiracetam (3.0-60.0) ug/mL 08/27/22 08/27/22 08/27/22 Range/Units 19:11 19:57 21:06 WBC (3.8-10.6) k/uL RBC (3.80-5.40) m/uL Hgb (11.4-16.0) gm/dL Hct (34.0-46.0) % MCHC (31.0-37.0) g/dL RDW (11.5-15.5) % Neutrophils # (1.3-7.7) k/uL Monocytes # (0-1.0) k/uL ABG pH (7.35-7.45) ABG pCO2 (35-45) mmHg Sodium (137-145) mmol/L Potassium (3.5-5.1) mmol/L Chloride (98-107) mmol/L BUN (7-17) mg/dL Creatinine (0.52-1.04) mg/dL Glucose (74-99) mg/dL POC Glucose (mg/dL) 406 H 361 H 341 H (70-110) mg/dL Calcium (8.4-10.2) mg/dL AST (14-36) U/L Alkaline Phosphatase (38-126) U/L Total Protein (6.3-8.2) g/dL Albumin (3.5-5.0) g/dL Levetiracetam (3.0-60.0) ug/mL 08/27/22 08/27/22 08/28/22 Range/Units 22:27 23:31 00:46 WBC (3.8-10.6) k/uL RBC (3.80-5.40) m/uL Hgb (11.4-16.0) gm/dL Hct (34.0-46.0) % MCHC (31.0-37.0) g/dL RDW (11.5-15.5) % Neutrophils # (1.3-7.7) k/uL Monocytes # (0-1.0) k/uL ABG pH (7.35-7.45) ABG pCO2 (35-45) mmHg Sodium (137-145) mmol/L Potassium (3.5-5.1) mmol/L Chloride (98-107) mmol/L BUN (7-17) mg/dL Creatinine (0.52-1.04) mg/dL Glucose (74-99) mg/dL POC Glucose (mg/dL) 320 H 305 H 278 H (70-110) mg/dL Calcium (8.4-10.2) mg/dL AST (14-36) U/L Alkaline Phosphatase (38-126) U/L Total Protein (6.3-8.2) g/dL Albumin (3.5-5.0) g/dL Levetiracetam (3.0-60.0) ug/mL 08/28/22 08/28/22 08/28/22 Range/Units 01:55 02:53 04:10 WBC (3.8-10.6) k/uL RBC (3.80-5.40) m/uL Hgb (11.4-16.0) gm/dL Hct (34.0-46.0) % MCHC (31.0-37.0) g/dL RDW (11.5-15.5) % Neutrophils # (1.3-7.7) k/uL Monocytes # (0-1.0) k/uL ABG pH (7.35-7.45) ABG pCO2 (35-45) mmHg Sodium 130 L (137-145) mmol/L Potassium 2.8 L (3.5-5.1) mmol/L Chloride 97 L (98-107) mmol/L BUN 79 H (7-17) mg/dL Creatinine 1.70 H (0.52-1.04) mg/dL Glucose 228 H (74-99) mg/dL POC Glucose (mg/dL) 284 H 282 H (70-110) mg/dL Calcium 6.7 L (8.4-10.2) mg/dL AST 40 H (14-36) U/L Alkaline Phosphatase 162 H (38-126) U/L Total Protein 4.1 L (6.3-8.2) g/dL Albumin 1.6 L (3.5-5.0) g/dL Levetiracetam (3.0-60.0) ug/mL 08/28/22 08/28/22 08/28/22 Range/Units 04:10 04:10 05:07 WBC 22.4 H (3.8-10.6) k/uL RBC 2.62 L (3.80-5.40) m/uL Hgb 6.9 L* (11.4-16.0) gm/dL Hct 22.6 L (34.0-46.0) % MCHC 30.3 L (31.0-37.0) g/dL RDW 18.6 H (11.5-15.5) % Neutrophils # 19.4 H (1.3-7.7) k/uL Monocytes # 1.4 H (0-1.0) k/uL ABG pH (7.35-7.45) ABG pCO2 (35-45) mmHg Sodium (137-145) mmol/L Potassium (3.5-5.1) mmol/L Chloride (98-107) mmol/L BUN (7-17) mg/dL Creatinine (0.52-1.04) mg/dL Glucose (74-99) mg/dL POC Glucose (mg/dL) 269 H 245 H (70-110) mg/dL Calcium (8.4-10.2) mg/dL AST (14-36) U/L Alkaline Phosphatase (38-126) U/L Total Protein (6.3-8.2) g/dL Albumin (3.5-5.0) g/dL Levetiracetam (3.0-60.0) ug/mL 08/28/22 08/28/22 08/28/22 Range/Units 05:36 06:17 07:12 WBC (3.8-10.6) k/uL RBC (3.80-5.40) m/uL Hgb (11.4-16.0) gm/dL Hct (34.0-46.0) % MCHC (31.0-37.0) g/dL RDW (11.5-15.5) % Neutrophils # (1.3-7.7) k/uL Monocytes # (0-1.0) k/uL ABG pH 7.25 L (7.35-7.45) ABG pCO2 51 H (35-45) mmHg Sodium (137-145) mmol/L Potassium (3.5-5.1) mmol/L Chloride (98-107) mmol/L BUN (7-17) mg/dL Creatinine (0.52-1.04) mg/dL Glucose (74-99) mg/dL POC Glucose (mg/dL) 225 H 207 H (70-110) mg/dL Calcium (8.4-10.2) mg/dL AST (14-36) U/L Alkaline Phosphatase (38-126) U/L Total Protein (6.3-8.2) g/dL Albumin (3.5-5.0) g/dL Levetiracetam (3.0-60.0) ug/mL 08/28/22 Range/Units 08:19 WBC (3.8-10.6) k/uL RBC (3.80-5.40) m/uL Hgb (11.4-16.0) gm/dL Hct (34.0-46.0) % MCHC (31.0-37.0) g/dL RDW (11.5-15.5) % Neutrophils # (1.3-7.7) k/uL Monocytes # (0-1.0) k/uL ABG pH (7.35-7.45) ABG pCO2 (35-45) mmHg Sodium (137-145) mmol/L Potassium (3.5-5.1) mmol/L Chloride (98-107) mmol/L BUN (7-17) mg/dL Creatinine (0.52-1.04) mg/dL Glucose (74-99) mg/dL POC Glucose (mg/dL) 193 H (70-110) mg/dL Calcium (8.4-10.2) mg/dL AST (14-36) U/L Alkaline Phosphatase (38-126) U/L Total Protein (6.3-8.2) g/dL Albumin (3.5-5.0) g/dL Levetiracetam (3.0-60.0) ug/mL Assessment and Plan (1) Sepsis Current Visit: Yes Status: Acute Code(s): A41.9 - SEPSIS, UNSPECIFIED ORGANISM SNOMED Code(s): 74102546 Plan: 1patient was in the hospital with sepsis and septic shock initially concern for multidrug-resistant Pseudomonas UTI, patient also have a candidemia secondary to possible abdominal source and now with a VRE bacteremia source likely abdominal 2patient did have evidence of colonic perforation and peritonitis being managed medically as the patient considered to be high risk for any surgical procedure 3patient did have persistent VRE bacteremia and could be related to the multiple lines , patient will benefit from removal of those lines to control her bacteremia 4-the patient clinical condition remains to be guarded however the patient did have resolution of her fever, patient to continue with Zyvox Zerbex and Eraxis and continue supportive care Family the bedside questions were answered Time with Patient: Less than 30
--- NOTE | 2022-08-28 11:33 | P.PN ---
Subjective Progress Note Date: 08/28/22 Principal diagnosis: Respiratory failure. Reevaluated today on 08/25/2022, patient remains in the ICU, intubated and mechanically ventilated, he is on assist control rate of 28th of volume 400 FiO2 50% PEEP of 5 ABG showed a pO2 of 91 pCO2 42 pH of 7.28 patient is scheduled to undergo tracheostomy and PEG tube placement today, hence no changes were made in her present ventilator settings. Patient is still maximized on pressors including norepinephrine at 0.5 mcg/kg/m vasopressin at 0.04 units per minute she is also on amiodarone 1 mg/m TPN at 50 mL/h. Sodium bicarb 3 A in D5W at 75 mL per hour she is also on Versed 6 mg per hour. Chest x-ray shows worsening in her bilateral pneumonia. WBC count is getting worse today 21.7 hemoglobin is 7.3, basic metabolic profile showed slightly low potassium of 3.0, BUN is 79 creatinine 1.87, basically unchanged in the last couple of days. Serum albumin is 1.7. Ionized calcium is 5.2, patient received calcium earlier today Reevaluated today on 08/26/2022, patient remains in the ICU, intubated mechanically ventilated, she is now on assist control rate of 30 tidal volume 400 FiO2 45% PEEP is at 10. Try to go down on the feet, however the patient desaturated and I kept her on a PEEP of 10. ABG today showed a pO2 of 84 pCO2 47 pH of 7.26. Patient remains on multiple drips, she had uneventful tracheostomy placed on 08/25 yesterday. However she did not have a PEG tube, continues to have a nasogastric tube in place. She is now on norepinephrine at 0.47 vasopressin at 0.04 amiodarone at 1 mg/m, bicarb at 75 mL/h Versed at 7 mg per hour today I added Solu-Medrol 40 mg IV push every 8 hours. Mostly because on physical examination she has significant rhonchi and wheezes chest x-ray continues to show bilateral infiltrates. Not much of a change. Overall clinical status about the same and unchanged. Patient remains quite swollen and edematous. Remains on Lasix 80 mg IV push daily. WBC count is rising 21.3. H emoglobin is 7.2. Basic metabolic profile is abnormal with low potassium and low sodium low bicarb elevated BUN of 76 creatinine 1.74. Ionized calcium is 5.6 ammonia level remains elevated at 171. Reevaluated today on 08/27/2022, patient remains in the ICU, intubated and mechanically ventilated sedated, patient is on multiple drips including norepinephrine at 0.3 mcg/kg/m vasopressin at 0.04, amiodarone, bicarbonate 75 ML per hour, and she is also on Versed 7 mg per hour. Patient is on assist control rate of 30 tidal volume 400 FiO2 45% PEEP of 10 ABG showed a pO2 of 100 pCO2 48 pH of 7.30. Patient has been receiving Versed, today I recommended that we stop the Versed and assess mental status if possible. Patient continues to have multiple medical issues, and I believe the patient is worsening clinically. Now she is developing ischemic changes in her fingers and in her toes, becoming more cyanotic. And that is mostly because of significant amount of pressors and the patient has been receiving. Today I recommended that we cut down on the presses since her blood pressure seems to be better and I recommended that we stop her Versed to assess mental status if possible. Hospice son is at bedside, updated the son in her condition, family is very well aware that her condition i s extremely poor and futile, nonetheless the is not ready to let go. I have strongly recommended comfort care measures, remains reluctant to do so. WBC count today is 21.3 hemoglobin 7.2. Basic metabolic profile is normal however her BUN is 75 creatinine 1.8 2, chest x-ray continues to show bilateral air space disease and possibly bilateral pleural effusions tracheostomy seems to be in proper position. Progress note dated 08/28/2022. 87-year-old female who was admitted back on August 08. She initially came in with urinary tract infection, possible bowel obstruction, and sepsis. The patient came to the intensive care unit one day later on the , and was intubated on August 10. For prolonged respiratory failure, and inability to wean, the patient underwent tracheostomy on August 25, and is apparently scheduled to have a PEG tube placed today. She remains on volume assist control, rate 30, tidal volume 400, FiO2 45%, and PEEP of 10. Arterial blood gases show pO2 of 95, pCO2 51, and pH is 7.25. The patient remains on TPN at 65 mL an hour, norepinephrine at 46 mcg/m, Versed 7 mg an hour, saline at KVO, insulin at 50 units an hour, and Lasix at 10 mg an hour. White count 22.4, hemoglobin 6.9, hematocrit 22.6, and platelet count 277,000. Sodium 1:30, potassium 3.6, chlorides 97, CO2 23, BUN 79, and creatinine 1.70. Review his blood cultures from the and August 23 show vancomycin-resistant enterococcus. There was no chest x-ray today. Objective - Vital Signs Vital signs: Vital Signs Temp 97.9 F 08/28/22 04:00 Pulse 110 H 08/28/22 11:05 Resp 30 H 08/28/22 10:30 BP 95/29 08/28/22 09:00 Pulse Ox 93 L 08/28/22 10:30 FiO2 45 08/28/22 08:04 Intake & Output 08/27/22 08/28/22 08/28/22 18:59 06:59 18:59 Intake Total 2600.083 1192.524 649.836 Output Total 585 1815 40 Balance 2014.083 -622.476 609.836 Weight 145.3 kg Intake: IV 1916 331 292 0.9% @ KVO 100 130 50 Anidulafungin 100 mg In 100 100 Sodium Chloride 0.9% 100 ml @ 84 mls/hr IVPB DAILY [facility] Rx#:[id number] Ceftolozane/Tazobactam 0. 200 75 gm In Sodium Chloride 0.9% 100 ml @ 100 mls/hr IV Q8HR [facility] Rx#:[id number] Dextrose 5% in Water 1, 150 000 ml @ 75 mls/hr IV . [id number] [facility] with Sodium Bicarb (1 Meq/ml) 150 ml Rx#:[id number] Furosemide 100 mg In 30 Sodium Chloride 0.9% 90 ml @ 10 MG/HR 10 mls/hr IV .Q10H [facility] Rx#: [id number] Lacosamide IV 150 mg In 50 Sodium Chloride 0.9% 50 ml @ 100 mls/hr IVPB BID [facility] Rx#:[id number] Linezolid 600 mg In 200 Dextrose/Water 1 300ml. bag @ 150 mls/hr IVPB Q12H [facility] Rx#:[id number] Magnesium Sulfate-D5w Pmx 200 1 gm In Dextrose/Water 1 100ml.bag @ 100 mls/hr IVPB Q1H [facility] Rx#: [id number] Pressure Bag 36 36 12 Sodium Acetate 30 meq 780 65 Potassium Chloride 30 meq Magnesium Sulfate gm 0.5 gm Calcium Gluconate 2 gm In Amino Acids 5 %/ Dextrose 20 % 1,000 ml @ 65 mls/hr IV .BY DURATION [facility] Rx#:[id number] levETIRAcetam IV 1,000 mg 100 100 100 In Saline 1 100ml.bag @ 400 mls/hr IVPB Q12HR [facility] Rx#:[id number] Intake, IV Titration 684.083 861.524 357.836 Amount Furosemide 100 mg In 79.833 Sodium Chloride 0.9% 90 ml @ 10 MG/HR 10 mls/hr IV .Q10H [facility] Rx#: [id number] Insulin Regular 100 unit 79.750 398.200 100 In Sodium Chloride 0.9% 100 ml @ Titrate IV .Q0M [facility] Rx#:[id number] Magnesium Sulfate-D5w Pmx 100 1 gm In Dextrose/Water 1 100ml.bag @ 100 mls/hr IVPB Q1H [facility] Rx#: [id number] Midazolam HCl 50 mg In 87.917 78.516 Sodium Chloride 0.9% 40 ml @ 6 MG/HR 6 mls/hr IV .Q8H20M [facility] Rx#:[id number] Mvi, Adult No.4 with Vit 130 K 10 ml Trace (Conc-1Ml/ Dose) 1 ml Sodium Acetate 30 meq Potassium Chloride 20 meq Magnesium Sulfate gm 0.5 gm Calcium Gluconate 1 gm In Amino Acids 5 %/Dextrose 20 % 1,000 ml @ 65 mls/ hr IV .BY DURATION [facility] Rx #:[id number] Mvi, Adult No.4 with Vit 130 K 10 ml Trace (Conc-1Ml/ Dose) 1 ml Sodium Acetate 50 meq Potassium Chloride 50 meq Magnesium Sulfate gm 1 gm Calcium Gluconate 3 gm In Amino Acids 5 %/Dextrose 20 % 1 ,000 ml @ 65 mls/hr IV . BY DURATION [facility] Rx#: [id number] Norepinephrine 32 mg In 210.356 165.055 62.836 Sodium Chloride 0.9% 218 ml @ 0.5 MCG/KG/MIN 25. 547 mls/hr IV .Q9H48M [facility] Rx#:[id number] Phenytoin Sodium Inj 300 50 mg In Sodium Chloride 0.9 % 50 ml @ 80 mls/hr IVPB Q12H [facility] Rx#:[id number] Sodium Acetate 50 meq 65 Potassium Chloride 50 meq Magnesium Sulfate gm 1 gm Calcium Gluconate 3 gm In Amino Acids 5 %/ Dextrose 20 % 1,000 ml @ 65 mls/hr IV .BY DURATION [facility] Rx#:[id number] Vasopressin 60 unit In 156.06 9.920 0 Sodium Chloride 0.9% 150 ml @ 0.04 UNITS/MIN 6.12 mls/hr IV .Q24H [facility] Rx#: [id number] Output: Gastric Drainage 1000 Urine 585 215 40 Stool 600 Other: Voiding Method Indwelling Catheter Indwelling Catheter ABP, PAP, CO, CI - Last Documented Arterial Blood Pressure 136/55 - Exam No acute distress, heavily sedated, and currently on the mechanical ventilator. HEENT examination is grossly unremarkable. Neck supple. Full range of motion. No adenopathy thyromegaly or neck vein distention. A midline tracheostomy tube is noted. Cardiovascular examination reveals regular rhythm rate. S1-S2 normal. No S3 or S4. No discernible murmur noted. Heart rate 110 bpm. Lungs reveal scattered bilateral rhonchi. Breath sounds equal. Saturations are 93%. Abdomen obese, without bowel sounds. Extremities reveal bilateral lower extremity edema. Skin is without rash or lesion. Neurologic examination cannot be adequately assessed. - Labs CBC & Chem 7: 08/28/22 04:10 08/28/22 10:30 Labs: Abnormal Lab Results - Last 24 Hours (Table) 08/26/22 08/27/22 08/27/22 Range/Units 05:44 12:27 13:33 WBC (3.8-10.6) k/uL RBC (3.80-5.40) m/uL Hgb (11.4-16.0) gm/dL Hct (34.0-46.0) % MCHC (31.0-37.0) g/dL RDW (11.5-15.5) % Neutrophils # (1.3-7.7) k/uL Monocytes # (0-1.0) k/uL ABG pH (7.35-7.45) ABG pCO2 (35-45) mmHg Sodium (137-145) mmol/L Potassium (3.5-5.1) mmol/L Chloride (98-107) mmol/L BUN (7-17) mg/dL Creatinine (0.52-1.04) mg/dL Glucose (74-99) mg/dL POC Glucose (mg/dL) 429 H 452 H (70-110) mg/dL Calcium (8.4-10.2) mg/dL AST (14-36) U/L Alkaline Phosphatase (38-126) U/L Total Protein (6.3-8.2) g/dL Albumin (3.5-5.0) g/dL Levetiracetam 68.9 H (3.0-60.0) ug/mL 08/27/22 08/27/22 08/27/22 Range/Units 14:41 15:08 15:58 WBC (3.8-10.6) k/uL RBC (3.80-5.40) m/uL Hgb (11.4-16.0) gm/dL Hct (34.0-46.0) % MCHC (31.0-37.0) g/dL RDW (11.5-15.5) % Neutrophils # (1.3-7.7) k/uL Monocytes # (0-1.0) k/uL ABG pH (7.35-7.45) ABG pCO2 (35-45) mmHg Sodium (137-145) mmol/L Potassium (3.5-5.1) mmol/L Chloride (98-107) mmol/L BUN (7-17) mg/dL Creatinine (0.52-1.04) mg/dL Glucose (74-99) mg/dL POC Glucose (mg/dL) 443 H 441 H 432 H (70-110) mg/dL Calcium (8.4-10.2) mg/dL AST (14-36) U/L Alkaline Phosphatase (38-126) U/L Total Protein (6.3-8.2) g/dL Albumin (3.5-5.0) g/dL Levetiracetam (3.0-60.0) ug/mL 08/27/22 08/27/22 08/27/22 Range/Units 17:58 18:00 19:11 WBC (3.8-10.6) k/uL RBC (3.80-5.40) m/uL Hgb (11.4-16.0) gm/dL Hct (34.0-46.0) % MCHC (31.0-37.0) g/dL RDW (11.5-15.5) % Neutrophils # (1.3-7.7) k/uL Monocytes # (0-1.0) k/uL ABG pH (7.35-7.45) ABG pCO2 (35-45) mmHg Sodium (137-145) mmol/L Potassium (3.5-5.1) mmol/L Chloride (98-107) mmol/L BUN (7-17) mg/dL Creatinine (0.52-1.04) mg/dL Glucose (74-99) mg/dL POC Glucose (mg/dL) 424 H 418 H 406 H (70-110) mg/dL Calcium (8.4-10.2) mg/dL AST (14-36) U/L Alkaline Phosphatase (38-126) U/L Total Protein (6.3-8.2) g/dL Albumin (3.5-5.0) g/dL Levetiracetam (3.0-60.0) ug/mL 08/27/22 08/27/22 08/27/22 Range/Units 19:57 21:06 22:27 WBC (3.8-10.6) k/uL RBC (3.80-5.40) m/uL Hgb (11.4-16.0) gm/dL Hct (34.0-46.0) % MCHC (31.0-37.0) g/dL RDW (11.5-15.5) % Neutrophils # (1.3-7.7) k/uL Monocytes # (0-1.0) k/uL ABG pH (7.35-7.45) ABG pCO2 (35-45) mmHg Sodium (137-145) mmol/L Potassium (3.5-5.1) mmol/L Chloride (98-107) mmol/L BUN (7-17) mg/dL Creatinine (0.52-1.04) mg/dL Glucose (74-99) mg/dL POC Glucose (mg/dL) 361 H 341 H 320 H (70-110) mg/dL Calcium (8.4-10.2) mg/dL AST (14-36) U/L Alkaline Phosphatase (38-126) U/L Total Protein (6.3-8.2) g/dL Albumin (3.5-5.0) g/dL Levetiracetam (3.0-60.0) ug/mL 08/27/22 08/28/22 08/28/22 Range/Units 23:31 00:46 01:55 WBC (3.8-10.6) k/uL RBC (3.80-5.40) m/uL Hgb (11.4-16.0) gm/dL Hct (34.0-46.0) % MCHC (31.0-37.0) g/dL RDW (11.5-15.5) % Neutrophils # (1.3-7.7) k/uL Monocytes # (0-1.0) k/uL ABG pH (7.35-7.45) ABG pCO2 (35-45) mmHg Sodium (137-145) mmol/L Potassium (3.5-5.1) mmol/L Chloride (98-107) mmol/L BUN (7-17) mg/dL Creatinine (0.52-1.04) mg/dL Glucose (74-99) mg/dL POC Glucose (mg/dL) 305 H 278 H 284 H (70-110) mg/dL Calcium (8.4-10.2) mg/dL AST (14-36) U/L Alkaline Phosphatase (38-126) U/L Total Protein (6.3-8.2) g/dL Albumin (3.5-5.0) g/dL Levetiracetam (3.0-60.0) ug/mL 08/28/22 08/28/22 08/28/22 Range/Units 02:53 04:10 04:10 WBC (3.8-10.6) k/uL RBC (3.80-5.40) m/uL Hgb (11.4-16.0) gm/dL Hct (34.0-46.0) % MCHC (31.0-37.0) g/dL RDW (11.5-15.5) % Neutrophils # (1.3-7.7) k/uL Monocytes # (0-1.0) k/uL ABG pH (7.35-7.45) ABG pCO2 (35-45) mmHg Sodium 130 L (137-145) mmol/L Potassium 2.8 L (3.5-5.1) mmol/L Chloride 97 L (98-107) mmol/L BUN 79 H (7-17) mg/dL Creatinine 1.70 H (0.52-1.04) mg/dL Glucose 228 H (74-99) mg/dL POC Glucose (mg/dL) 282 H 269 H (70-110) mg/dL Calcium 6.7 L (8.4-10.2) mg/dL AST 40 H (14-36) U/L Alkaline Phosphatase 162 H (38-126) U/L Total Protein 4.1 L (6.3-8.2) g/dL Albumin 1.6 L (3.5-5.0) g/dL Levetiracetam (3.0-60.0) ug/mL 08/28/22 08/28/22 08/28/22 Range/Units 04:10 05:07 05:36 WBC 22.4 H (3.8-10.6) k/uL RBC 2.62 L (3.80-5.40) m/uL Hgb 6.9 L* (11.4-16.0) gm/dL Hct 22.6 L (34.0-46.0) % MCHC 30.3 L (31.0-37.0) g/dL RDW 18.6 H (11.5-15.5) % Neutrophils # 19.4 H (1.3-7.7) k/uL Monocytes # 1.4 H (0-1.0) k/uL ABG pH 7.25 L (7.35-7.45) ABG pCO2 51 H (35-45) mmHg Sodium (137-145) mmol/L Potassium (3.5-5.1) mmol/L Chloride (98-107) mmol/L BUN (7-17) mg/dL Creatinine (0.52-1.04) mg/dL Glucose (74-99) mg/dL POC Glucose (mg/dL) 245 H (70-110) mg/dL Calcium (8.4-10.2) mg/dL AST (14-36) U/L Alkaline Phosphatase (38-126) U/L Total Protein (6.3-8.2) g/dL Albumin (3.5-5.0) g/dL Levetiracetam (3.0-60.0) ug/mL 08/28/22 08/28/22 08/28/22 Range/Units 06:17 07:12 08:19 WBC (3.8-10.6) k/uL RBC (3.80-5.40) m/uL Hgb (11.4-16.0) gm/dL Hct (34.0-46.0) % MCHC (31.0-37.0) g/dL RDW (11.5-15.5) % Neutrophils # (1.3-7.7) k/uL Monocytes # (0-1.0) k/uL ABG pH (7.35-7.45) ABG pCO2 (35-45) mmHg Sodium (137-145) mmol/L Potassium (3.5-5.1) mmol/L Chloride (98-107) mmol/L BUN (7-17) mg/dL Creatinine (0.52-1.04) mg/dL Glucose (74-99) mg/dL POC Glucose (mg/dL) 225 H 207 H 193 H (70-110) mg/dL Calcium (8.4-10.2) mg/dL AST (14-36) U/L Alkaline Phosphatase (38-126) U/L Total Protein (6.3-8.2) g/dL Albumin (3.5-5.0) g/dL Levetiracetam (3.0-60.0) ug/mL 08/28/22 Range/Units 10:26 WBC (3.8-10.6) k/uL RBC (3.80-5.40) m/uL Hgb (11.4-16.0) gm/dL Hct (34.0-46.0) % MCHC (31.0-37.0) g/dL RDW (11.5-15.5) % Neutrophils # (1.3-7.7) k/uL Monocytes # (0-1.0) k/uL ABG pH (7.35-7.45) ABG pCO2 (35-45) mmHg Sodium (137-145) mmol/L Potassium (3.5-5.1) mmol/L Chloride (98-107) mmol/L BUN (7-17) mg/dL Creatinine (0.52-1.04) mg/dL Glucose (74-99) mg/dL POC Glucose (mg/dL) 174 H (70-110) mg/dL Calcium (8.4-10.2) mg/dL AST (14-36) U/L Alkaline Phosphatase (38-126) U/L Total Protein (6.3-8.2) g/dL Albumin (3.5-5.0) g/dL Levetiracetam (3.0-60.0) ug/mL Assessment and Plan Assessment: Acute on chronic hypoxemic respiratory failure, status post intubation on August 10, and tracheostomy on August 25. Acute on chronic diastolic CHF. Abdominal sepsis/septic shock. Anion gap metabolic acidosis. Urinary tract infection secondary to Enterococcus faecalis and pseudomonas aeruginosa. Bacteremia secondary to vancomycin-resistant enterococci. Systemic candidiasis. Atrial fibrillation with RVR. Acute on chronic kidney disease. Recent history of coronavirus infection. History of aortic stenosis. Acute on chronic anemia. History of COPD. History of diastolic congestive heart failure. Morbid obesity. Plan: Plan dated 08/28/2022. The patient remains a DO NOT RESUSCITATE patient, but the patient family still wants everything done at this time. The patient will continue on GI and DVT prophylaxis. The patient continues on antibiotics as per infectious diseases. The patient remains on norepinephrine at 46 mcg/m. She also remains on Versed, because of ongoing seizure activity. The patient continues on insulin at 50 units an hour, and a Lasix drip, as well as TPN. The plan is to do a PEG tube today. Additional recommendations and suggestions are forthcoming. Labs, x- rays, and medications are reviewed. Patient is very critically ill, and overall prognosis remains guarded. Time with Patient: Greater than 30
[2022-08-28] MEDS: PANTOPRAZOLE 40 MG/10 ML VIAL IVP SCH (12:11)
--- NOTE | 2022-08-28 12:11 | P.PN ---
Subjective Progress Note Date: 08/28/22 H&P Date: 08/09/22 Chief Complaint: Shortness of breath,Altered mental statConstipation, syncope, hyperglycemia This is a pleasant 87-year-old female with past medical history of CAD, HI, stent placement, aortic stenosis ,chronic hypoxic respiratory failure,on 2 L nasal cannula ,Covid 06/22,COPD, former nicotine dependence, obstructive sleep apnea ,CVA/TIA, diabetes mellitus, hypertension, hyperlipidemia, hypothyroidism, recurrent UTIs,CKD III, urinary retention, anemia, bilateral peripheral neuropathy, gait dysfunction,utilizing walker, falls, morbid obesity-BMI 39.9 and multiple other medical issues brought in via ambulance, on BiPAP to the ER for change in level of consciousness, syncope, nausea, vomiting, hyperglycemia, constipation-on [place], shortness of breath, recently discharged from [facility] subacute rehab on 08/06/2022. Information being obtained from chart and daughter at bedside. Daughter reports they are unsure of her last bowel movement, possibly , 08/03. [facility] documented large bowel movement on 08/04 and 08/05. Reports yesterday blood sugars were running high in the 400s, patient developed nausea and vomiting, change in sensorium, passed out while on the toilet. Reports patient "coughs all the time, but has COPD", no knowledge of fevers, denies chills. Denies chest pain, palpitations, positive shortness of breath. Developed hypotension in the ER in addition to emesis, received fluid bolus .Chest x-ray reported right basilar infiltrate with persistent small right effusion, no overt failure. EKG reported sinus rhythm, troponin negative 1. KUB reported marked gastric distention, additional small bowel loops dilated, possibly retained debris within the rectum and sigmoid colon. 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 NG tube placed in the ER with 1200 MLS bilious output reported overnight. D-dimer elevated 4.73, CT angio chest reported no evidence of pulmonary embolism,more consolidation changes in the right lung base, rule out aspiration. ProBNP 426. UA reported many WBC clumps, 165 WBCs, large leukocytes, negative nitrates, culture pending. Afebrile, on admission temperature 96.7, currently 98.8. WBC 14.3. lactic acid 3.5, repeat level pending. Hemoglobin 10.2, platelets 4:15, a I's within normal limits, BUN 40, creatinine 1.5. BiPAP weaned off, currently requiring 6 L nasal cannula O2 to maintain O2 sats in the low 90s. 08/10/22 Continued to decline throughout the night requiring ICU admission, maintained on vasopressin, Levophed and bicarb drips. Received fluid boluses throughout the night. Lactic acid decreased to 2.1. Low urine output on Lasix IV push. BUN 81, creatinine 2.68. Hyperkalemic, received calcium, insulin, D50, sodium bicarbonate. Chest x-ray reporting stable bilateral lower lobe infiltrate and small effusion. Afebrile, T-max 99.7. Continues on Levaquin, WBC normalized today. Cefepime added to antibiotic regimen today. Preliminary Urine cultures reporting group D enterococcus 50-100,000 colonies and gram-negative bacilli 10 and 49,000 colonies. 07/03 Blood cultures reporting GNB. Hemoglobin 8.2, platelets 311. 08/11/2022 Vent dependent, FiO2 60%/+5 of PEEP. Chest x-ray reports stable, no change in bibasilar opacities, pleural effusion unchanged. Continues on the Levophed and vasopressin drips. Febrile to the night, T-max 102.4, WBC increased to 12.2. Lactic acid trended up during the night, received fluid boluses, currently at 3.2. Developed atrial fibrillation with RVR, bolused with amiodarone and currently on amiodarone drip. Urine culture reporting enterococcus faecalis and Pseudomonas aeruginosa.Films reviewed by general surgery, reporting sigmoid volvulus. Recommending conservative management. BUN 79, creatinine 2.74. Hyperglycemic. Hemoglobin 8.6, platelets 349. Anticoagulation remains on hold. 08/21/2022 remains vent dependent, FiO2 50%/+5 of PEEP. Maintained on high doses of levophed, vasopressin. Amiodarone and bicarb drips continue. Receiving IV albumin to be followed by Lasix. Worsening renal function. Staff reports no urine output 24 hours. Bicarb 16, BUN 76, creatinine 1.73. Repeat CT of abdomen and pelvis completed yesterday, reporting moderate volume pneumo peritoneum, suspected perforation of distal colonic bowel, extensive distal bowel pneumatosis. Surgery discussed findings with family, high risk for surgical intervention. Family decided against surgical intervention,but to continue with nonsurgical care. T-max 100.6. 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 Brain CT reported no acute intracranial process .EEG completed, results pending. 08/22/2022 vent dependent, 40% FiO2, +5 of PEEP. Staff reports patient desats quickly with turning. Chest x-ray reporting bibasilar atelectasis, consolidation, minimally increased, possible tiny right basilar pleural effusion. Continues on high doses of pressors, digits dusky. Maintained on bicarb drip. Telemetry atrial fibrillation, fast ventricular rate on amiodarone drip. Remains on antibiotics as per infectious disease.BUN 83, creatinine 1.79. T-max 102, WBC decreased, 16.5 08/23/2022 FiO2 50%/+5 of PEEP. Chest x-ray reported no significant change .Continues on pressor support. Maintained on amiodarone drip, heart rates currently in the 1 teens to 120s. Continues on daptomycin, Zerbexa and Eraxis.T-max 100.9, WBC 15.3. BUN 83, creatinine 2.13. WBC decreased to 15.3. Receiving IV albumin, Albumin currently 1.6. Ionized calcium 3.4, receiving supplementation. 08/24/2022 continues in A. fib, heart rates 110 to 130s on amiodarone drip. Seizure activity yesterday reported with facial twitching lasting approximately half an hour EEG performed-reported abnormal 2-1/2 hour EEG suggesting epileptiform focus involving midline occipital parietal region. Vimpat and Keppra doses increased. Continue to have seizure activity today, right-sided face twitching, trembling of arm reported, repeat EEG in progress. Versed drip initiated. Brain Ct pending. Maximized on both norepi and vasopressin. Digits dusky, declining comfort care at this time. Continues on bicarb drip. Remains vent dependent on FiO2 50%/+5 of PEEP. Now trach and PEG are being considered. 08/25/2022 maximized on pressors, levophed and vasopressin. Mechanical ventilator-dependent, FiO2 50%/+5 of PEEP. Chest x-ray reporting worsening bibasilar consolidation ,bilateral pneumonia. Family meeting via phone this morning with Dr. Minnie REYES, regarding poor prognosis, futile condition. Scheduled for tracheostomy and PEG-consent pending. Continues on amiodarone, bicarb drips. TPN. Continues to have seizure activity, on Versed drip, Dilantin added to med regimen. Afebrile, worsening WBC, 21.7, potassium 3, receiving supplementation. BUN 79, creatinine 1.87. Ionized calcium 3.4, supplemented. 08/28/2022 Remains vent dependent, FiO2 45%/+10 of PEEP status post tracheostomy 08/25. Nebulized bronchodilators, IV steroids. Receiving TPN/lipids. Requiring insulin drip for hyperglycemia, blood sugars currently ranging 160s to 170s.Ongoing seizures, continues on Versed drip, Dilantin, Keppra, Vimpat. EEG repeated yesterday, reported severely abnormal, suppression worsening-seen with severe anoxic or toxic metabolic encephalopathy, nonconvulsive generalized status epilepticus cannot be ruled out. Maintained on vasopressin, Levophed and Lasix drips. Antibiotics as per infectious disease. Afebrile, WBC 22.4. Objective - Vital Signs Vital signs: Vital Signs Temp 97.9 F 08/28/22 04:00 Pulse 110 H 08/28/22 11:05 Resp 30 H 08/28/22 10:30 BP 95/29 08/28/22 09:00 Pulse Ox 93 L 08/28/22 10:30 FiO2 45 08/28/22 08:04 Intake & Output 08/27/22 08/28/22 08/28/22 18:59 06:59 18:59 Intake Total 2600.083 1192.524 649.836 Output Total 585 1815 40 Balance 2014.083 -622.476 609.836 Weight 145.3 kg Intake: IV 1916 331 292 0.9% @ KVO 100 130 50 Anidulafungin 100 mg In 100 100 Sodium Chloride 0.9% 100 ml @ 84 mls/hr IVPB DAILY [facility] Rx#:[id number] Ceftolozane/Tazobactam 0. 200 75 gm In Sodium Chloride 0.9% 100 ml @ 100 mls/hr IV Q8HR [facility] Rx#:[id number] Dextrose 5% in Water 1, 150 000 ml @ 75 mls/hr IV . [id number] [facility] with Sodium Bicarb (1 Meq/ml) 150 ml Rx#:[id number] Furosemide 100 mg In 30 Sodium Chloride 0.9% 90 ml @ 10 MG/HR 10 mls/hr IV .Q10H [facility] Rx#: [id number] Lacosamide IV 150 mg In 50 Sodium Chloride 0.9% 50 ml @ 100 mls/hr IVPB BID [facility] Rx#:[id number] Linezolid 600 mg In 200 Dextrose/Water 1 300ml. bag @ 150 mls/hr IVPB Q12H [facility] Rx#:[id number] Magnesium Sulfate-D5w Pmx 200 1 gm In Dextrose/Water 1 100ml.bag @ 100 mls/hr IVPB Q1H [facility] Rx#: [id number] Pressure Bag 36 36 12 Sodium Acetate 30 meq 780 65 Potassium Chloride 30 meq Magnesium Sulfate gm 0.5 gm Calcium Gluconate 2 gm In Amino Acids 5 %/ Dextrose 20 % 1,000 ml @ 65 mls/hr IV .BY DURATION [facility] Rx#:[id number] levETIRAcetam IV 1,000 mg 100 100 100 In Saline 1 100ml.bag @ 400 mls/hr IVPB Q12HR [facility] Rx#:[id number] Intake, IV Titration 684.083 861.524 357.836 Amount Furosemide 100 mg In 79.833 Sodium Chloride 0.9% 90 ml @ 10 MG/HR 10 mls/hr IV .Q10H [facility] Rx#: [id number] Insulin Regular 100 unit 79.750 398.200 100 In Sodium Chloride 0.9% 100 ml @ Titrate IV .Q0M [facility] Rx#:[id number] Magnesium Sulfate-D5w Pmx 100 1 gm In Dextrose/Water 1 100ml.bag @ 100 mls/hr IVPB Q1H [facility] Rx#: [id number] Midazolam HCl 50 mg In 87.917 78.516 Sodium Chloride 0.9% 40 ml @ 6 MG/HR 6 mls/hr IV .Q8H20M [facility] Rx#:[id number] Mvi, Adult No.4 with Vit 130 K 10 ml Trace (Conc-1Ml/ Dose) 1 ml Sodium Acetate 30 meq Potassium Chloride 20 meq Magnesium Sulfate gm 0.5 gm Calcium Gluconate 1 gm In Amino Acids 5 %/Dextrose 20 % 1,000 ml @ 65 mls/ hr IV .BY DURATION [facility] Rx #:[id number] Mvi, Adult No.4 with Vit 130 K 10 ml Trace (Conc-1Ml/ Dose) 1 ml Sodium Acetate 50 meq Potassium Chloride 50 meq Magnesium Sulfate gm 1 gm Calcium Gluconate 3 gm In Amino Acids 5 %/Dextrose 20 % 1 ,000 ml @ 65 mls/hr IV . BY DURATION [facility] Rx#: [id number] Norepinephrine 32 mg In 210.356 165.055 62.836 Sodium Chloride 0.9% 218 ml @ 0.5 MCG/KG/MIN 25. 547 mls/hr IV .Q9H48M [facility] Rx#:[id number] Phenytoin Sodium Inj 300 50 mg In Sodium Chloride 0.9 % 50 ml @ 80 mls/hr IVPB Q12H [facility] Rx#:[id number] Sodium Acetate 50 meq 65 Potassium Chloride 50 meq Magnesium Sulfate gm 1 gm Calcium Gluconate 3 gm In Amino Acids 5 %/ Dextrose 20 % 1,000 ml @ 65 mls/hr IV .BY DURATION [facility] Rx#:[id number] Vasopressin 60 unit In 156.06 9.920 0 Sodium Chloride 0.9% 150 ml @ 0.04 UNITS/MIN 6.12 mls/hr IV .Q24H [facility] Rx#: [id number] Output: Gastric Drainage 1000 Urine 585 215 40 Stool 600 Other: Voiding Method Indwelling Catheter Indwelling Catheter ABP, PAP, CO, CI - Last Documented Arterial Blood Pressure 136/55 - Exam GENERAL EXAM: on mechanical ventilation/tracheostomy. HEENT: Normocephalic. Sluggish pupils,NG present NECK: soft, unable to assess for JVD. LUNGS: Equal air entry with bilateral bases diminished, fine crackles in bilateral bases. CV: S1 and S2 normal with no audible murmur, irregular rhythm. Tachycardic, Systolic murmur. ABDOMEN:Distended, FMS present with stool SKIN: No rashes. CENTRAL NERVOUS SYSTEM: Unable to assess, comotose on mechanical ventilation EXTREMITIES: Positive peripheral edema, dusky digits. Microbiology 08/23/22 11:40 Blood Blood Culture Gram Stain - Final 08/23/22 11:40 Blood Blood Culture - Final Enterococcus faecium VRE 08/19/22 22:00 Blood Blood Culture Gram Stain - Final 08/19/22 22:00 Blood Blood Culture - Final Enterococcus faecium 08/19/22 18:00 Stool Stool Culture - Final 08/23/22 11:40 Blood Blood Culture - Final 08/19/22 21:07 Sputum Gram Stain - Final 08/19/22 21:07 Sputum Sputum Culture - Final Methicillin resist S. aureus Ange albicans 08/19/22 22:00 Blood Blood Culture - Final 08/14/22 15:00 Blood Blood Culture - Final No Growth after 144 hours 08/10/22 17:00 Blood Blood Culture - Final No Growth after 144 hours 08/08/22 13:30 Blood Blood Culture Gram Stain - Final 08/08/22 13:30 Blood Blood Culture - Final Anaerobic Gm Negative Bacilli 08/09/22 14:19 Blood Blood Culture - Final No Growth after 144 hours 08/08/22 13:00 Blood Blood Culture - Final No Growth after 144 hours 08/11/22 16:05 Blood Blood Culture Gram Stain - Final 08/11/22 16:05 Blood Blood Culture - Final Ange albicans 08/11/22 17:06 Sputum Gram Stain - Final 08/11/22 17:06 Sputum Sputum Culture - Final Ange albicans 08/11/22 16:05 Blood Blood Culture - Final 08/08/22 13:10 Urine,Voided Urine Culture - Final Enterococcus faecalis Pseudomonas aeruginosa 08/08/22 13:30 Blood Blood Culture - Final - Labs CBC & Chem 7: 08/28/22 04:10 08/28/22 10:30 Labs: Abnormal Lab Results - Last 24 Hours (Table) 08/26/22 08/27/22 08/27/22 Range/Units 05:44 12:27 13:33 WBC (3.8-10.6) k/uL RBC (3.80-5.40) m/uL Hgb (11.4-16.0) gm/dL Hct (34.0-46.0) % MCHC (31.0-37.0) g/dL RDW (11.5-15.5) % Neutrophils # (1.3-7.7) k/uL Monocytes # (0-1.0) k/uL ABG pH (7.35-7.45) ABG pCO2 (35-45) mmHg Sodium (137-145) mmol/L Potassium (3.5-5.1) mmol/L Chloride (98-107) mmol/L BUN (7-17) mg/dL Creatinine (0.52-1.04) mg/dL Glucose (74-99) mg/dL POC Glucose (mg/dL) 429 H 452 H (70-110) mg/dL Calcium (8.4-10.2) mg/dL AST (14-36) U/L Alkaline Phosphatase (38-126) U/L Total Protein (6.3-8.2) g/dL Albumin (3.5-5.0) g/dL Levetiracetam 68.9 H (3.0-60.0) ug/mL 08/27/22 08/27/22 08/27/22 Range/Units 14:41 15:08 15:58 WBC (3.8-10.6) k/uL RBC (3.80-5.40) m/uL Hgb (11.4-16.0) gm/dL Hct (34.0-46.0) % MCHC (31.0-37.0) g/dL RDW (11.5-15.5) % Neutrophils # (1.3-7.7) k/uL Monocytes # (0-1.0) k/uL ABG pH (7.35-7.45) ABG pCO2 (35-45) mmHg Sodium (137-145) mmol/L Potassium (3.5-5.1) mmol/L Chloride (98-107) mmol/L BUN (7-17) mg/dL Creatinine (0.52-1.04) mg/dL Glucose (74-99) mg/dL POC Glucose (mg/dL) 443 H 441 H 432 H (70-110) mg/dL Calcium (8.4-10.2) mg/dL AST (14-36) U/L Alkaline Phosphatase (38-126) U/L Total Protein (6.3-8.2) g/dL Albumin (3.5-5.0) g/dL Levetiracetam (3.0-60.0) ug/mL 08/27/22 08/27/22 08/27/22 Range/Units 17:58 18:00 19:11 WBC (3.8-10.6) k/uL RBC (3.80-5.40) m/uL Hgb (11.4-16.0) gm/dL Hct (34.0-46.0) % MCHC (31.0-37.0) g/dL RDW (11.5-15.5) % Neutrophils # (1.3-7.7) k/uL Monocytes # (0-1.0) k/uL ABG pH (7.35-7.45) ABG pCO2 (35-45) mmHg Sodium (137-145) mmol/L Potassium (3.5-5.1) mmol/L Chloride (98-107) mmol/L BUN (7-17) mg/dL Creatinine (0.52-1.04) mg/dL Glucose (74-99) mg/dL POC Glucose (mg/dL) 424 H 418 H 406 H (70-110) mg/dL Calcium (8.4-10.2) mg/dL AST (14-36) U/L Alkaline Phosphatase (38-126) U/L Total Protein (6.3-8.2) g/dL Albumin (3.5-5.0) g/dL Levetiracetam (3.0-60.0) ug/mL 08/27/22 08/27/22 08/27/22 Range/Units 19:57 21:06 22:27 WBC (3.8-10.6) k/uL RBC (3.80-5.40) m/uL Hgb (11.4-16.0) gm/dL Hct (34.0-46.0) % MCHC (31.0-37.0) g/dL RDW (11.5-15.5) % Neutrophils # (1.3-7.7) k/uL Monocytes # (0-1.0) k/uL ABG pH (7.35-7.45) ABG pCO2 (35-45) mmHg Sodium (137-145) mmol/L Potassium (3.5-5.1) mmol/L Chloride (98-107) mmol/L BUN (7-17) mg/dL Creatinine (0.52-1.04) mg/dL Glucose (74-99) mg/dL POC Glucose (mg/dL) 361 H 341 H 320 H (70-110) mg/dL Calcium (8.4-10.2) mg/dL AST (14-36) U/L Alkaline Phosphatase (38-126) U/L Total Protein (6.3-8.2) g/dL Albumin (3.5-5.0) g/dL Levetiracetam (3.0-60.0) ug/mL 08/27/22 08/28/22 08/28/22 Range/Units 23:31 00:46 01:55 WBC (3.8-10.6) k/uL RBC (3.80-5.40) m/uL Hgb (11.4-16.0) gm/dL Hct (34.0-46.0) % MCHC (31.0-37.0) g/dL RDW (11.5-15.5) % Neutrophils # (1.3-7.7) k/uL Monocytes # (0-1.0) k/uL ABG pH (7.35-7.45) ABG pCO2 (35-45) mmHg Sodium (137-145) mmol/L Potassium (3.5-5.1) mmol/L Chloride (98-107) mmol/L BUN (7-17) mg/dL Creatinine (0.52-1.04) mg/dL Glucose (74-99) mg/dL POC Glucose (mg/dL) 305 H 278 H 284 H (70-110) mg/dL Calcium (8.4-10.2) mg/dL AST (14-36) U/L Alkaline Phosphatase (38-126) U/L Total Protein (6.3-8.2) g/dL Albumin (3.5-5.0) g/dL Levetiracetam (3.0-60.0) ug/mL 08/28/22 08/28/22 08/28/22 Range/Units 02:53 04:10 04:10 WBC (3.8-10.6) k/uL RBC (3.80-5.40) m/uL Hgb (11.4-16.0) gm/dL Hct (34.0-46.0) % MCHC (31.0-37.0) g/dL RDW (11.5-15.5) % Neutrophils # (1.3-7.7) k/uL Monocytes # (0-1.0) k/uL ABG pH (7.35-7.45) ABG pCO2 (35-45) mmHg Sodium 130 L (137-145) mmol/L Potassium 2.8 L (3.5-5.1) mmol/L Chloride 97 L (98-107) mmol/L BUN 79 H (7-17) mg/dL Creatinine 1.70 H (0.52-1.04) mg/dL Glucose 228 H (74-99) mg/dL POC Glucose (mg/dL) 282 H 269 H (70-110) mg/dL Calcium 6.7 L (8.4-10.2) mg/dL AST 40 H (14-36) U/L Alkaline Phosphatase 162 H (38-126) U/L Total Protein 4.1 L (6.3-8.2) g/dL Albumin 1.6 L (3.5-5.0) g/dL Levetiracetam (3.0-60.0) ug/mL 08/28/22 08/28/22 08/28/22 Range/Units 04:10 05:07 05:36 WBC 22.4 H (3.8-10.6) k/uL RBC 2.62 L (3.80-5.40) m/uL Hgb 6.9 L* (11.4-16.0) gm/dL Hct 22.6 L (34.0-46.0) % MCHC 30.3 L (31.0-37.0) g/dL RDW 18.6 H (11.5-15.5) % Neutrophils # 19.4 H (1.3-7.7) k/uL Monocytes # 1.4 H (0-1.0) k/uL ABG pH 7.25 L (7.35-7.45) ABG pCO2 51 H (35-45) mmHg Sodium (137-145) mmol/L Potassium (3.5-5.1) mmol/L Chloride (98-107) mmol/L BUN (7-17) mg/dL Creatinine (0.52-1.04) mg/dL Glucose (74-99) mg/dL POC Glucose (mg/dL) 245 H (70-110) mg/dL Calcium (8.4-10.2) mg/dL AST (14-36) U/L Alkaline Phosphatase (38-126) U/L Total Protein (6.3-8.2) g/dL Albumin (3.5-5.0) g/dL Levetiracetam (3.0-60.0) ug/mL 08/28/22 08/28/22 08/28/22 Range/Units 06:17 07:12 08:19 WBC (3.8-10.6) k/uL RBC (3.80-5.40) m/uL Hgb (11.4-16.0) gm/dL Hct (34.0-46.0) % MCHC (31.0-37.0) g/dL RDW (11.5-15.5) % Neutrophils # (1.3-7.7) k/uL Monocytes # (0-1.0) k/uL ABG pH (7.35-7.45) ABG pCO2 (35-45) mmHg Sodium (137-145) mmol/L Potassium (3.5-5.1) mmol/L Chloride (98-107) mmol/L BUN (7-17) mg/dL Creatinine (0.52-1.04) mg/dL Glucose (74-99) mg/dL POC Glucose (mg/dL) 225 H 207 H 193 H (70-110) mg/dL Calcium (8.4-10.2) mg/dL AST (14-36) U/L Alkaline Phosphatase (38-126) U/L Total Protein (6.3-8.2) g/dL Albumin (3.5-5.0) g/dL Levetiracetam (3.0-60.0) ug/mL 08/28/22 Range/Units 10:26 WBC (3.8-10.6) k/uL RBC (3.80-5.40) m/uL Hgb (11.4-16.0) gm/dL Hct (34.0-46.0) % MCHC (31.0-37.0) g/dL RDW (11.5-15.5) % Neutrophils # (1.3-7.7) k/uL Monocytes # (0-1.0) k/uL ABG pH (7.35-7.45) ABG pCO2 (35-45) mmHg Sodium (137-145) mmol/L Potassium (3.5-5.1) mmol/L Chloride (98-107) mmol/L BUN (7-17) mg/dL Creatinine (0.52-1.04) mg/dL Glucose (74-99) mg/dL POC Glucose (mg/dL) 174 H (70-110) mg/dL Calcium (8.4-10.2) mg/dL AST (14-36) U/L Alkaline Phosphatase (38-126) U/L Total Protein (6.3-8.2) g/dL Albumin (3.5-5.0) g/dL Levetiracetam (3.0-60.0) ug/mL Assessment and Plan Assessment: Sepsis, septic shock secondary to acute enterococcus faecalis and Pseudomonas aeruginosa UTI, with acute VRE bacteremia ,abdominal sepsis. Systemic ca ndidiasis. Hypotension, severe, secondary to the above, pressor dependent Seizure activity, workup in progress, neurology following Acute on chronic hypoxic respiratory failure, ventilator dependent, secondary to all the above, status post tracheostomy 08/25 Hyperammonium Chronic changes of the right lower lobe and small right pleural effusion as per pulmonary Acute on CKD III, secondary to ATN related to the above Persistent Atrial fibrillation with RVR, status post amiodarone drip, In a patient with history of chronic atrial fibrillation. Metabolic acidosis, on bicarb drip Abdominal pain, constipation, last bowel movement reported 08/05.Films reviewed by general surgery, reporting sigmoid volvulus. Continued clinical worsening;Probable perforated viscus with pneumoperitoneum reported per CT on 08/20/2022. Leukocytosis Diabetes mellitus, family reports hyperglycemic at home, controlled IP, A1c 6. Recent COVID-19 infection, 06/22 COPD, history of Valvular heart disease, moderate aortic stenosis, preserved LV function History of CHF, diastolic dysfunction Chronic anemia Generalized weakness, gait dysfunction, multiple falls recently reported, recently discharged from [facility] subacute rehab. 08/06/22. History of CVA, TIA History of Hypertension Hyperlipidemia Hypothyroidism Morbid obesity, BMI 56.7 No code, no CPR, no reintubation Plan: Continue on current medication regime ,monitoring and symptomatic treatment. ICU management as per quality control projectionist. Antibiotics as per infectious disease. Prognosis remains poor, /family declining comfort care at this time. PEG pending. The impression and plan of care has been dictated as directed. : I performed a history and examination of this patient, discussed the same with the dictator. I agree with the dictator's note ,documented as a scribe. Any additional findings or plans will be noted.
[2022-08-28 12:16] LABS: Glucose,Whole Blood 137 mg/dL (70-110)
--- NOTE | 2022-08-28 12:46 | P.PN ---
Subjective Patient is seen for follow-up for acute kidney injury, mostly ATN. Etiology is sepsis with fungemia and UTI with urine cultures growing Pseudomonas and enterococcus. Patient also has left lower lobe pneumonia. Patient remains on the vent. FiO2 is at 40%. Patient is also maintained on levo fed and vasopressin. Levo fed was being weaned yesterday however this morning it is back on Started on Lasix drip for severe volume overload. Urine output has decreased to about 15 ML per hour. Status post trach and PEG on 08/25/2022 Maintained on TPN Objective - Vital Signs Vital signs: Vital Signs Temp 97.9 F 08/28/22 04:00 Pulse 110 H 08/28/22 11:05 Resp 30 H 08/28/22 10:30 BP 95/29 08/28/22 09:00 Pulse Ox 93 L 08/28/22 10:30 FiO2 45 08/28/22 08:04 Intake & Output 08/27/22 08/28/22 08/28/22 18:59 06:59 18:59 Intake Total 2600.083 1192.524 649.836 Output Total 585 1815 40 Balance 2014.083 -622.476 609.836 Weight 145.3 kg Intake: IV 1916 331 292 0.9% @ KVO 100 130 50 Anidulafungin 100 mg In 100 100 Sodium Chloride 0.9% 100 ml @ 84 mls/hr IVPB DAILY [facility] Rx#:[id number] Ceftolozane/Tazobactam 0. 200 75 gm In Sodium Chloride 0.9% 100 ml @ 100 mls/hr IV Q8HR [facility] Rx#:[id number] Dextrose 5% in Water 1, 150 000 ml @ 75 mls/hr IV . [id number] [facility] with Sodium Bicarb (1 Meq/ml) 150 ml Rx#:[id number] Furosemide 100 mg In 30 Sodium Chloride 0.9% 90 ml @ 10 MG/HR 10 mls/hr IV .Q10H [facility] Rx#: [id number] Lacosamide IV 150 mg In 50 Sodium Chloride 0.9% 50 ml @ 100 mls/hr IVPB BID [facility] Rx#:[id number] Linezolid 600 mg In 200 Dextrose/Water 1 300ml. bag @ 150 mls/hr IVPB Q12H [facility] Rx#:[id number] Magnesium Sulfate-D5w Pmx 200 1 gm In Dextrose/Water 1 100ml.bag @ 100 mls/hr IVPB Q1H [facility] Rx#: [id number] Pressure Bag 36 36 12 Sodium Acetate 30 meq 780 65 Potassium Chloride 30 meq Magnesium Sulfate gm 0.5 gm Calcium Gluconate 2 gm In Amino Acids 5 %/ Dextrose 20 % 1,000 ml @ 65 mls/hr IV .BY DURATION [facility] Rx#:[id number] levETIRAcetam IV 1,000 mg 100 100 100 In Saline 1 100ml.bag @ 400 mls/hr IVPB Q12HR [facility] Rx#:[id number] Intake, IV Titration 684.083 861.524 357.836 Amount Furosemide 100 mg In 79.833 Sodium Chloride 0.9% 90 ml @ 10 MG/HR 10 mls/hr IV .Q10H [facility] Rx#: [id number] Insulin Regular 100 unit 79.750 398.200 100 In Sodium Chloride 0.9% 100 ml @ Titrate IV .Q0M [facility] Rx#:[id number] Magnesium Sulfate-D5w Pmx 100 1 gm In Dextrose/Water 1 100ml.bag @ 100 mls/hr IVPB Q1H [facility] Rx#: [id number] Midazolam HCl 50 mg In 87.917 78.516 Sodium Chloride 0.9% 40 ml @ 6 MG/HR 6 mls/hr IV .Q8H20M [facility] Rx#:[id number] Mvi, Adult No.4 with Vit 130 K 10 ml Trace (Conc-1Ml/ Dose) 1 ml Sodium Acetate 30 meq Potassium Chloride 20 meq Magnesium Sulfate gm 0.5 gm Calcium Gluconate 1 gm In Amino Acids 5 %/Dextrose 20 % 1,000 ml @ 65 mls/ hr IV .BY DURATION [facility] Rx #:[id number] Mvi, Adult No.4 with Vit 130 K 10 ml Trace (Conc-1Ml/ Dose) 1 ml Sodium Acetate 50 meq Potassium Chloride 50 meq Magnesium Sulfate gm 1 gm Calcium Gluconate 3 gm In Amino Acids 5 %/Dextrose 20 % 1 ,000 ml @ 65 mls/hr IV . BY DURATION [facility] Rx#: [id number] Norepinephrine 32 mg In 210.356 165.055 62.836 Sodium Chloride 0.9% 218 ml @ 0.5 MCG/KG/MIN 25. 547 mls/hr IV .Q9H48M [facility] Rx#:[id number] Phenytoin Sodium Inj 300 50 mg In Sodium Chloride 0.9 % 50 ml @ 80 mls/hr IVPB Q12H [facility] Rx#:[id number] Sodium Acetate 50 meq 65 Potassium Chloride 50 meq Magnesium Sulfate gm 1 gm Calcium Gluconate 3 gm In Amino Acids 5 %/ Dextrose 20 % 1,000 ml @ 65 mls/hr IV .BY DURATION [facility] Rx#:[id number] Vasopressin 60 unit In 156.06 9.920 0 Sodium Chloride 0.9% 150 ml @ 0.04 UNITS/MIN 6.12 mls/hr IV .Q24H [facility] Rx#: [id number] Output: Gastric Drainage 1000 Urine 585 215 40 Stool 600 Other: Voiding Method Indwelling Catheter Indwelling Catheter ABP, PAP, CO, CI - Last Documented Arterial Blood Pressure 136/55 - Exam Patient is sedated and on the vent. Examination of the heart S1 and S2 Examination of the lungs bilateral breath sounds are heard Abdomen is soft distended obese Examination lower extremity shows edema 3 + bilaterally upper and lower extremities Discoloration noted in upper and lower extremities [employer] exam cannot be performed - Labs CBC & Chem 7: 08/28/22 04:10 08/28/22 10:30 Labs: Abnormal Lab Results - Last 24 Hours (Table) 08/26/22 08/27/22 08/27/22 Range/Units 05:44 13:33 14:41 WBC (3.8-10.6) k/uL RBC (3.80-5.40) m/uL Hgb (11.4-16.0) gm/dL Hct (34.0-46.0) % MCHC (31.0-37.0) g/dL RDW (11.5-15.5) % Neutrophils # (1.3-7.7) k/uL Monocytes # (0-1.0) k/uL ABG pH (7.35-7.45) ABG pCO2 (35-45) mmHg Sodium (137-145) mmol/L Potassium (3.5-5.1) mmol/L Chloride (98-107) mmol/L BUN (7-17) mg/dL Creatinine (0.52-1.04) mg/dL Glucose (74-99) mg/dL POC Glucose (mg/dL) 452 H 443 H (70-110) mg/dL Calcium (8.4-10.2) mg/dL AST (14-36) U/L Alkaline Phosphatase (38-126) U/L Total Protein (6.3-8.2) g/dL Albumin (3.5-5.0) g/dL Levetiracetam 68.9 H (3.0-60.0) ug/mL 08/27/22 08/27/22 08/27/22 Range/Units 15:08 15:58 17:58 WBC (3.8-10.6) k/uL RBC (3.80-5.40) m/uL Hgb (11.4-16.0) gm/dL Hct (34.0-46.0) % MCHC (31.0-37.0) g/dL RDW (11.5-15.5) % Neutrophils # (1.3-7.7) k/uL Monocytes # (0-1.0) k/uL ABG pH (7.35-7.45) ABG pCO2 (35-45) mmHg Sodium (137-145) mmol/L Potassium (3.5-5.1) mmol/L Chloride (98-107) mmol/L BUN (7-17) mg/dL Creatinine (0.52-1.04) mg/dL Glucose (74-99) mg/dL POC Glucose (mg/dL) 441 H 432 H 424 H (70-110) mg/dL Calcium (8.4-10.2) mg/dL AST (14-36) U/L Alkaline Phosphatase (38-126) U/L Total Protein (6.3-8.2) g/dL Albumin (3.5-5.0) g/dL Levetiracetam (3.0-60.0) ug/mL 08/27/22 08/27/22 08/27/22 Range/Units 18:00 19:11 19:57 WBC (3.8-10.6) k/uL RBC (3.80-5.40) m/uL Hgb (11.4-16.0) gm/dL Hct (34.0-46.0) % MCHC (31.0-37.0) g/dL RDW (11.5-15.5) % Neutrophils # (1.3-7.7) k/uL Monocytes # (0-1.0) k/uL ABG pH (7.35-7.45) ABG pCO2 (35-45) mmHg Sodium (137-145) mmol/L Potassium (3.5-5.1) mmol/L Chloride (98-107) mmol/L BUN (7-17) mg/dL Creatinine (0.52-1.04) mg/dL Glucose (74-99) mg/dL POC Glucose (mg/dL) 418 H 406 H 361 H (70-110) mg/dL Calcium (8.4-10.2) mg/dL AST (14-36) U/L Alkaline Phosphatase (38-126) U/L Total Protein (6.3-8.2) g/dL Albumin (3.5-5.0) g/dL Levetiracetam (3.0-60.0) ug/mL 08/27/22 08/27/22 08/27/22 Range/Units 21:06 22:27 23:31 WBC (3.8-10.6) k/uL RBC (3.80-5.40) m/uL Hgb (11.4-16.0) gm/dL Hct (34.0-46.0) % MCHC (31.0-37.0) g/dL RDW (11.5-15.5) % Neutrophils # (1.3-7.7) k/uL Monocytes # (0-1.0) k/uL ABG pH (7.35-7.45) ABG pCO2 (35-45) mmHg Sodium (137-145) mmol/L Potassium (3.5-5.1) mmol/L Chloride (98-107) mmol/L BUN (7-17) mg/dL Creatinine (0.52-1.04) mg/dL Glucose (74-99) mg/dL POC Glucose (mg/dL) 341 H 320 H 305 H (70-110) mg/dL Calcium (8.4-10.2) mg/dL AST (14-36) U/L Alkaline Phosphatase (38-126) U/L Total Protein (6.3-8.2) g/dL Albumin (3.5-5.0) g/dL Levetiracetam (3.0-60.0) ug/mL 08/28/22 08/28/22 08/28/22 Range/Units 00:46 01:55 02:53 WBC (3.8-10.6) k/uL RBC (3.80-5.40) m/uL Hgb (11.4-16.0) gm/dL Hct (34.0-46.0) % MCHC (31.0-37.0) g/dL RDW (11.5-15.5) % Neutrophils # (1.3-7.7) k/uL Monocytes # (0-1.0) k/uL ABG pH (7.35-7.45) ABG pCO2 (35-45) mmHg Sodium (137-145) mmol/L Potassium (3.5-5.1) mmol/L Chloride (98-107) mmol/L BUN (7-17) mg/dL Creatinine (0.52-1.04) mg/dL Glucose (74-99) mg/dL POC Glucose (mg/dL) 278 H 284 H 282 H (70-110) mg/dL Calcium (8.4-10.2) mg/dL AST (14-36) U/L Alkaline Phosphatase (38-126) U/L Total Protein (6.3-8.2) g/dL Albumin (3.5-5.0) g/dL Levetiracetam (3.0-60.0) ug/mL 08/28/22 08/28/22 08/28/22 Range/Units 04:10 04:10 04:10 WBC 22.4 H (3.8-10.6) k/uL RBC 2.62 L (3.80-5.40) m/uL Hgb 6.9 L* (11.4-16.0) gm/dL Hct 22.6 L (34.0-46.0) % MCHC 30.3 L (31.0-37.0) g/dL RDW 18.6 H (11.5-15.5) % Neutrophils # 19.4 H (1.3-7.7) k/uL Monocytes # 1.4 H (0-1.0) k/uL ABG pH (7.35-7.45) ABG pCO2 (35-45) mmHg Sodium 130 L (137-145) mmol/L Potassium 2.8 L (3.5-5.1) mmol/L Chloride 97 L (98-107) mmol/L BUN 79 H (7-17) mg/dL Creatinine 1.70 H (0.52-1.04) mg/dL Glucose 228 H (74-99) mg/dL POC Glucose (mg/dL) 269 H (70-110) mg/dL Calcium 6.7 L (8.4-10.2) mg/dL AST 40 H (14-36) U/L Alkaline Phosphatase 162 H (38-126) U/L Total Protein 4.1 L (6.3-8.2) g/dL Albumin 1.6 L (3.5-5.0) g/dL Levetiracetam (3.0-60.0) ug/mL 08/28/22 08/28/22 08/28/22 Range/Units 05:07 05:36 06:17 WBC (3.8-10.6) k/uL RBC (3.80-5.40) m/uL Hgb (11.4-16.0) gm/dL Hct (34.0-46.0) % MCHC (31.0-37.0) g/dL RDW (11.5-15.5) % Neutrophils # (1.3-7.7) k/uL Monocytes # (0-1.0) k/uL ABG pH 7.25 L (7.35-7.45) ABG pCO2 51 H (35-45) mmHg Sodium (137-145) mmol/L Potassium (3.5-5.1) mmol/L Chloride (98-107) mmol/L BUN (7-17) mg/dL Creatinine (0.52-1.04) mg/dL Glucose (74-99) mg/dL POC Glucose (mg/dL) 245 H 225 H (70-110) mg/dL Calcium (8.4-10.2) mg/dL AST (14-36) U/L Alkaline Phosphatase (38-126) U/L Total Protein (6.3-8.2) g/dL Albumin (3.5-5.0) g/dL Levetiracetam (3.0-60.0) ug/mL 08/28/22 08/28/22 08/28/22 Range/Units 07:12 08:19 10:26 WBC (3.8-10.6) k/uL RBC (3.80-5.40) m/uL Hgb (11.4-16.0) gm/dL Hct (34.0-46.0) % MCHC (31.0-37.0) g/dL RDW (11.5-15.5) % Neutrophils # (1.3-7.7) k/uL Monocytes # (0-1.0) k/uL ABG pH (7.35-7.45) ABG pCO2 (35-45) mmHg Sodium (137-145) mmol/L Potassium (3.5-5.1) mmol/L Chloride (98-107) mmol/L BUN (7-17) mg/dL Creatinine (0.52-1.04) mg/dL Glucose (74-99) mg/dL POC Glucose (mg/dL) 207 H 193 H 174 H (70-110) mg/dL Calcium (8.4-10.2) mg/dL AST (14-36) U/L Alkaline Phosphatase (38-126) U/L Total Protein (6.3-8.2) g/dL Albumin (3.5-5.0) g/dL Levetiracetam (3.0-60.0) ug/mL 08/28/22 Range/Units 12:14 WBC (3.8-10.6) k/uL RBC (3.80-5.40) m/uL Hgb (11.4-16.0) gm/dL Hct (34.0-46.0) % MCHC (31.0-37.0) g/dL RDW (11.5-15.5) % Neutrophils # (1.3-7.7) k/uL Monocytes # (0-1.0) k/uL ABG pH (7.35-7.45) ABG pCO2 (35-45) mmHg Sodium (137-145) mmol/L Potassium (3.5-5.1) mmol/L Chloride (98-107) mmol/L BUN (7-17) mg/dL Creatinine (0.52-1.04) mg/dL Glucose (74-99) mg/dL POC Glucose (mg/dL) 137 H (70-110) mg/dL Calcium (8.4-10.2) mg/dL AST (14-36) U/L Alkaline Phosphatase (38-126) U/L Total Protein (6.3-8.2) g/dL Albumin (3.5-5.0) g/dL Levetiracetam (3.0-60.0) ug/mL Assessment and Plan Assessment: 1. Acute kidney injury secondary to ATN from underlying infection with fungemia and urine tract infection with Pseudomonas and enterococcus. Urine output has decreased. Maintained on Lasix drip. 2. Hypotension secondary to sepsis, on levo fed and vasopressin 3. Ventilator dependent respiratory failure, stable 40% FiO2 status post trach and PEG 3. Left lower lobe pneumonia 4. UTI with Pseudomonas and enterococcus. 5. Hypocalcemia secondary to acute kidney injury. Severe nutritional vitamin D deficiency noted 6. Elevated liver enzymes secondary to sepsis/ hypotension, improved 7. Severe volume overload and third spacing, started on Lasix drip. Urine output remains low Plan: Continue with Lasix drip Continue with pressors Overall prognosis is guarded
[2022-08-28] MEDS: ERGOCALCIFEROL 1,250 MCG (50,000 IU) CAPSULE PO SCH (13:12)
[2022-08-28 13:38] LABS: Glucose,Whole Blood 117 mg/dL (70-110)
[2022-08-28] MEDS: LINEZOLID 600 MG in DEXTROSE/WATER 1 300ML.BAG IVPB SCH (13:41)
[2022-08-28] MEDS: PHENYTOIN SODIUM INJ 300 MG in SODIUM CHLORIDE 0.9% 50 ML IVPB SCH ×2 (13:42→23:46)
[2022-08-28] MEDS: 1: MVI, ADULT NO.4 WITH VIT K 10 ML, TRACE (CONC-1ML/DOSE) 1 ML, SODIUM ACETATE 50 MEQ, IV SCH ×7 (14:28)
--- NOTE | 2022-08-28 14:36 | P.OP ---
Date of Procedure: 08/28/22 Preoperative Diagnosis: Malnutrition Postoperative Diagnosis: Malnutrition Procedure(s) Performed: EGD Anesthesia: MAC Surgeon: Vinny Head Pathology: none sent Condition: stable Disposition: PACU Description of Procedure: The patient received IV sedation. The gastroscope placed oropharynx passed into the esophagus and stomach. The patient is morbidly obese BMI 58. The stomach was inflated with air. A light reflux cannot be seen on the anterior abdominal wall. Due to the thickness the patient's abdominal wall was not safe to proceed with PEG tube placement. At this point the scope was withdrawn.
[2022-08-28 14:58] LABS: Glucose,Whole Blood 98 mg/dL (70-110)
[2022-08-28 16:29] LABS: Glucose,Whole Blood 103 mg/dL (70-110)
--- NOTE | 2022-08-28 16:29 | P.PN ---
Subjective Progress Note Date: 08/28/22 I am following-up seeing the patient. She was being managed by Dr. Abrams. It seems the patient had multiple 2.5 hour EEG's last week and showed LPDS. She had recent EEG on 08/27/2022 and reported as revealed severe abnormal EEG with burst suppressed pattern. The suppression lasting between 40-60 seconds, with the maximal lasting for 87 seconds. The bursts lasting for around 5-12 seconds, consisting of high amplitude spike/polyspike's or PLEDs mainly involving bilateral parietal region, left more than right. Frequently extending to the frontal regions as well. Overall this EEG is severely abnormal, worse as compared to EEG from 08/24/2022. Overall suggestive of severe encephalopathy as can be seen with an anoxic, toxic metabolic or epileptic encephalopathy. 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 She continues to be intubated and on ventilator. She is on Versed 7mg/hr. Also on Vimpat 150mg bid IV, Keppra 1gm every 12 hrs IV and Dilantin 300mg every 12 hour. She is on Norepinephrine. Objective - Vital Signs Vital signs: Vital Signs Temp 97.4 F L 08/28/22 15:00 Pulse 104 H 08/28/22 15:44 Resp 30 H 08/28/22 15:00 BP 101/53 08/28/22 13:00 Pulse Ox 95 08/28/22 14:30 FiO2 45 08/28/22 15:45 Intake & Output 08/27/22 08/28/22 08/28/22 18:59 06:59 18:59 Intake Total 2600.083 5893.402 3920.992 Output Total 585 1815 175 Balance 2014.083 -698.925 6837.992 Weight 145.3 kg Intake: IV 1916 331 407 0.9% @ KVO 100 130 100 Anidulafungin 100 mg In 100 100 Sodium Chloride 0.9% 100 ml @ 84 mls/hr IVPB DAILY [facility] Rx#:[id number] Ceftolozane/Tazobactam 0. 200 75 gm In Sodium Chloride 0.9% 100 ml @ 100 mls/hr IV Q8HR [facility] Rx#:[id number] Dextrose 5% in Water 1, 150 000 ml @ 75 mls/hr IV . [id number] [facility] with Sodium Bicarb (1 Meq/ml) 150 ml Rx#:[id number] Furosemide 100 mg In 80 Sodium Chloride 0.9% 90 ml @ 10 MG/HR 10 mls/hr IV .Q10H [facility] Rx#: [id number] Lacosamide IV 150 mg In 50 Sodium Chloride 0.9% 50 ml @ 100 mls/hr IVPB BID [facility] Rx#:[id number] Linezolid 600 mg In 200 Dextrose/Water 1 300ml. bag @ 150 mls/hr IVPB Q12H [facility] Rx#:[id number] Magnesium Sulfate-D5w Pmx 200 1 gm In Dextrose/Water 1 100ml.bag @ 100 mls/hr IVPB Q1H [facility] Rx#: [id number] Pressure Bag 36 36 27 Sodium Acetate 30 meq 780 65 Potassium Chloride 30 meq Magnesium Sulfate gm 0.5 gm Calcium Gluconate 2 gm In Amino Acids 5 %/ Dextrose 20 % 1,000 ml @ 65 mls/hr IV .BY DURATION [facility] Rx#:[id number] levETIRAcetam IV 1,000 mg 100 100 100 In Saline 1 100ml.bag @ 400 mls/hr IVPB Q12HR [facility] Rx#:[id number] Intake, IV Titration 684.083 406.646 7269.992 Amount Furosemide 100 mg In 179.833 Sodium Chloride 0.9% 90 ml @ 10 MG/HR 10 mls/hr IV .Q10H [facility] Rx#: [id number] Insulin Regular 100 unit 79.750 398.200 100 In Sodium Chloride 0.9% 100 ml @ Titrate IV .Q0M [facility] Rx#:[id number] Linezolid 600 mg In 300 Dextrose/Water 1 300ml. bag @ 150 mls/hr IVPB Q12H [facility] Rx#:[id number] Magnesium Sulfate-D5w Pmx 100 1 gm In Dextrose/Water 1 100ml.bag @ 100 mls/hr IVPB Q1H [facility] Rx#: [id number] Midazolam HCl 50 mg In 87.917 78.516 50 Sodium Chloride 0.9% 40 ml @ 6 MG/HR 6 mls/hr IV .Q8H20M [facility] Rx#:[id number] Mvi, Adult No.4 with Vit 130 K 10 ml Trace (Conc-1Ml/ Dose) 1 ml Sodium Acetate 30 meq Potassium Chloride 20 meq Magnesium Sulfate gm 0.5 gm Calcium Gluconate 1 gm In Amino Acids 5 %/Dextrose 20 % 1,000 ml @ 65 mls/ hr IV .BY DURATION [facility] Rx #:[id number] Mvi, Adult No.4 with Vit 130 K 10 ml Trace (Conc-1Ml/ Dose) 1 ml Sodium Acetate 50 meq Potassium Chloride 50 meq Magnesium Sulfate gm 1 gm Calcium Gluconate 3 gm In Amino Acids 5 %/Dextrose 20 % 1 ,000 ml @ 65 mls/hr IV . BY DURATION [facility] Rx#: [id number] Norepinephrine 32 mg In 210.356 165.055 108.992 Sodium Chloride 0.9% 218 ml @ 0.5 MCG/KG/MIN 25. 547 mls/hr IV .Q9H48M [facility] Rx#:[id number] Phenytoin Sodium Inj 300 50 mg In Sodium Chloride 0.9 % 50 ml @ 80 mls/hr IVPB Q12H [facility] Rx#:[id number] Sodium Acetate 50 meq 325 Potassium Chloride 50 meq Magnesium Sulfate gm 1 gm Calcium Gluconate 3 gm In Amino Acids 5 %/ Dextrose 20 % 1,000 ml @ 65 mls/hr IV .BY DURATION [facility] Rx#:[id number] Vasopressin 60 unit In 156.06 9.920 0 Sodium Chloride 0.9% 150 ml @ 0.04 UNITS/MIN 6.12 mls/hr IV .Q24H [facility] Rx#: [id number] Output: Gastric Drainage 1000 Urine 585 215 175 Stool 600 Other: Voiding Method Indwelling Catheter Indwelling Catheter Indwelling Catheter ABP, PAP, CO, CI - Last Documented Arterial Blood Pressure 114/48 - Exam GENERAL: The patient is lying in bed and does not appear in acute distress. LUNG: Intubated on ventilator. NEUROLOGICAL: Is on Versed 7mg/hr. Exam is very limited. Higher mental function: The patient is comatose. Is GCS 3( E1, VT1, M1). Cranial nerves: I had to manually open her eyes. Primary gaze is midline. The pupils are round, equal and pinpoint. No facial weakness. Not breathing over vent but is set at high setting 30 AC. Motor: The strength is limited but no withdrawal to painful stimuli. No spontanous movement. Sensation: Unable to assess light touch. - Labs CBC & Chem 7: 08/28/22 04:10 08/28/22 10:30 Labs: Abnormal Lab Results - Last 24 Hours (Table) 08/26/22 08/27/22 08/27/22 Range/Units 05:44 15:58 17:58 WBC (3.8-10.6) k/uL RBC (3.80-5.40) m/uL Hgb (11.4-16.0) gm/dL Hct (34.0-46.0) % MCHC (31.0-37.0) g/dL RDW (11.5-15.5) % Neutrophils # (1.3-7.7) k/uL Monocytes # (0-1.0) k/uL ABG pH (7.35-7.45) ABG pCO2 (35-45) mmHg Sodium (137-145) mmol/L Potassium (3.5-5.1) mmol/L Chloride (98-107) mmol/L BUN (7-17) mg/dL Creatinine (0.52-1.04) mg/dL Glucose (74-99) mg/dL POC Glucose (mg/dL) 432 H 424 H (70-110) mg/dL Calcium (8.4-10.2) mg/dL AST (14-36) U/L Alkaline Phosphatase (38-126) U/L Total Protein (6.3-8.2) g/dL Albumin (3.5-5.0) g/dL Levetiracetam 68.9 H (3.0-60.0) ug/mL 08/27/22 08/27/22 08/27/22 Range/Units 18:00 19:11 19:57 WBC (3.8-10.6) k/uL RBC (3.80-5.40) m/uL Hgb (11.4-16.0) gm/dL Hct (34.0-46.0) % MCHC (31.0-37.0) g/dL RDW (11.5-15.5) % Neutrophils # (1.3-7.7) k/uL Monocytes # (0-1.0) k/uL ABG pH (7.35-7.45) ABG pCO2 (35-45) mmHg Sodium (137-145) mmol/L Potassium (3.5-5.1) mmol/L Chloride (98-107) mmol/L BUN (7-17) mg/dL Creatinine (0.52-1.04) mg/dL Glucose (74-99) mg/dL POC Glucose (mg/dL) 418 H 406 H 361 H (70-110) mg/dL Calcium (8.4-10.2) mg/dL AST (14-36) U/L Alkaline Phosphatase (38-126) U/L Total Protein (6.3-8.2) g/dL Albumin (3.5-5.0) g/dL Levetiracetam (3.0-60.0) ug/mL 08/27/22 08/27/22 08/27/22 Range/Units 21:06 22:27 23:31 WBC (3.8-10.6) k/uL RBC (3.80-5.40) m/uL Hgb (11.4-16.0) gm/dL Hct (34.0-46.0) % MCHC (31.0-37.0) g/dL RDW (11.5-15.5) % Neutrophils # (1.3-7.7) k/uL Monocytes # (0-1.0) k/uL ABG pH (7.35-7.45) ABG pCO2 (35-45) mmHg Sodium (137-145) mmol/L Potassium (3.5-5.1) mmol/L Chloride (98-107) mmol/L BUN (7-17) mg/dL Creatinine (0.52-1.04) mg/dL Glucose (74-99) mg/dL POC Glucose (mg/dL) 341 H 320 H 305 H (70-110) mg/dL Calcium (8.4-10.2) mg/dL AST (14-36) U/L Alkaline Phosphatase (38-126) U/L Total Protein (6.3-8.2) g/dL Albumin (3.5-5.0) g/dL Levetiracetam (3.0-60.0) ug/mL 08/28/22 08/28/22 08/28/22 Range/Units 00:46 01:55 02:53 WBC (3.8-10.6) k/uL RBC (3.80-5.40) m/uL Hgb (11.4-16.0) gm/dL Hct (34.0-46.0) % MCHC (31.0-37.0) g/dL RDW (11.5-15.5) % Neutrophils # (1.3-7.7) k/uL Monocytes # (0-1.0) k/uL ABG pH (7.35-7.45) ABG pCO2 (35-45) mmHg Sodium (137-145) mmol/L Potassium (3.5-5.1) mmol/L Chloride (98-107) mmol/L BUN (7-17) mg/dL Creatinine (0.52-1.04) mg/dL Glucose (74-99) mg/dL POC Glucose (mg/dL) 278 H 284 H 282 H (70-110) mg/dL Calcium (8.4-10.2) mg/dL AST (14-36) U/L Alkaline Phosphatase (38-126) U/L Total Protein (6.3-8.2) g/dL Albumin (3.5-5.0) g/dL Levetiracetam (3.0-60.0) ug/mL 08/28/22 08/28/22 08/28/22 Range/Units 04:10 04:10 04:10 WBC 22.4 H (3.8-10.6) k/uL RBC 2.62 L (3.80-5.40) m/uL Hgb 6.9 L* (11.4-16.0) gm/dL Hct 22.6 L (34.0-46.0) % MCHC 30.3 L (31.0-37.0) g/dL RDW 18.6 H (11.5-15.5) % Neutrophils # 19.4 H (1.3-7.7) k/uL Monocytes # 1.4 H (0-1.0) k/uL ABG pH (7.35-7.45) ABG pCO2 (35-45) mmHg Sodium 130 L (137-145) mmol/L Potassium 2.8 L (3.5-5.1) mmol/L Chloride 97 L (98-107) mmol/L BUN 79 H (7-17) mg/dL Creatinine 1.70 H (0.52-1.04) mg/dL Glucose 228 H (74-99) mg/dL POC Glucose (mg/dL) 269 H (70-110) mg/dL Calcium 6.7 L (8.4-10.2) mg/dL AST 40 H (14-36) U/L Alkaline Phosphatase 162 H (38-126) U/L Total Protein 4.1 L (6.3-8.2) g/dL Albumin 1.6 L (3.5-5.0) g/dL Levetiracetam (3.0-60.0) ug/mL 08/28/22 08/28/22 08/28/22 Range/Units 05:07 05:36 06:17 WBC (3.8-10.6) k/uL RBC (3.80-5.40) m/uL Hgb (11.4-16.0) gm/dL Hct (34.0-46.0) % MCHC (31.0-37.0) g/dL RDW (11.5-15.5) % Neutrophils # (1.3-7.7) k/uL Monocytes # (0-1.0) k/uL ABG pH 7.25 L (7.35-7.45) ABG pCO2 51 H (35-45) mmHg Sodium (137-145) mmol/L Potassium (3.5-5.1) mmol/L Chloride (98-107) mmol/L BUN (7-17) mg/dL Creatinine (0.52-1.04) mg/dL Glucose (74-99) mg/dL POC Glucose (mg/dL) 245 H 225 H (70-110) mg/dL Calcium (8.4-10.2) mg/dL AST (14-36) U/L Alkaline Phosphatase (38-126) U/L Total Protein (6.3-8.2) g/dL Albumin (3.5-5.0) g/dL Levetiracetam (3.0-60.0) ug/mL 08/28/22 08/28/22 08/28/22 Range/Units 07:12 08:19 10:26 WBC (3.8-10.6) k/uL RBC (3.80-5.40) m/uL Hgb (11.4-16.0) gm/dL Hct (34.0-46.0) % MCHC (31.0-37.0) g/dL RDW (11.5-15.5) % Neutrophils # (1.3-7.7) k/uL Monocytes # (0-1.0) k/uL ABG pH (7.35-7.45) ABG pCO2 (35-45) mmHg Sodium (137-145) mmol/L Potassium (3.5-5.1) mmol/L Chloride (98-107) mmol/L BUN (7-17) mg/dL Creatinine (0.52-1.04) mg/dL Glucose (74-99) mg/dL POC Glucose (mg/dL) 207 H 193 H 174 H (70-110) mg/dL Calcium (8.4-10.2) mg/dL AST (14-36) U/L Alkaline Phosphatase (38-126) U/L Total Protein (6.3-8.2) g/dL Albumin (3.5-5.0) g/dL Levetiracetam (3.0-60.0) ug/mL 08/28/22 08/28/22 Range/Units 12:14 13:37 WBC (3.8-10.6) k/uL RBC (3.80-5.40) m/uL Hgb (11.4-16.0) gm/dL Hct (34.0-46.0) % MCHC (31.0-37.0) g/dL RDW (11.5-15.5) % Neutrophils # (1.3-7.7) k/uL Monocytes # (0-1.0) k/uL ABG pH (7.35-7.45) ABG pCO2 (35-45) mmHg Sodium (137-145) mmol/L Potassium (3.5-5.1) mmol/L Chloride (98-107) mmol/L BUN (7-17) mg/dL Creatinine (0.52-1.04) mg/dL Glucose (74-99) mg/dL POC Glucose (mg/dL) 137 H 117 H (70-110) mg/dL Calcium (8.4-10.2) mg/dL AST (14-36) U/L Alkaline Phosphatase (38-126) U/L Total Protein (6.3-8.2) g/dL Albumin (3.5-5.0) g/dL Levetiracetam (3.0-60.0) ug/mL Assessment and Plan Assessment: * Altered mental status multifactorial as mentioned below. Patient seizure and it seems partial status, septic encephalopathy, medication induced (versed). Also has some component of metabolic encephalopathy and hepatic encephalopathy. * Abnormal prolonged 2.5 hours EEG, with evidence of runs of 1 Hz LPDs plus there was lateralized periodic discharges, sharp and slow and poly-sharp and slow waves over the left parietal region with spread more anteriorly. There are also some discharges semi-periodic LPDs over the right posterior quadrants. Ictal/interictal continuum---on Versed IV and 3 other antiepileptic drugs (keppra, Vimpat and Dilantin) * Probable perforated viscus with pneumoperitoneum. * Septicemia, with leukocytosis and blood culture persistently positive with enterococcus faecium. Blood cultures positive as of 08/23/2022. White cells slightly worse today 21,000. * Hepatic encephalopathy with initial elevated ammonia 214, repeat 210, then latest 171. * Septic shock requiring high-dose pressors and seems has urinary tract infection with urine culture positive for Enterococcus faecalis and Pseudomonas aeruginosa as well as systemic candidiasis * Atrial fibrillation on eliquis (which has hx of afib) , currently on hold. * Acute on chronic hypoxemic respiratory failure secondary to diastolic congestive heart failure requiring intubation mechanical ventilation * Acute on chronic kidney disease * History of TIAs/stroke * History of coronary artery disease with stent * Hypertension * Hyperlipidemia * Diabetes mellitus * Anemia * Hypocalcemia Plan: * Clinically it appears partial status has resolved. No focal twitches noticed at this time. * Patient had multiple 2.5 hour EEG and most recent STAT EEG on 08/27/22: revealed severe abnormal EEG with burst suppressed pattern. The suppression lasting between 40-60 seconds, with the maximal lasting for 87 seconds. The bursts lasting for around 5-12 seconds, consisting of high amplitude spike/polyspike's or PLEDs mainly involving bilateral parietal region, left more than right. Frequently extending to the frontal regions as well. Overall this EEG is severely abnormal, worse as compared to EEG from 08/24/2022. Overall suggestive of severe encephalopathy as can be seen with an anoxic, toxic metabolic or epileptic encephalopathy. 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 * Patient already on high dose Vimpat 150 mg twice a day, Keppra 1000 mg twice a day (both of them adjusted for current renal functions). Also on Versed 7 mg per hour and will increase to 9mg/hr but by tomorrow will get prolonged 2.5 hour EEG and will attempt to taper dose. Patient also on Dilantin. Her Dilantin level 6.4 this morning. Maintenance dose increased to 300 mg twice a day. We will recheck a free and total Dilantin level in the morning. Await Keppra level. Cannot give Depakote because of hyperammonemia. * Continue Ativan 1-2 mg every 4 hours when necessary seizure. * Prolonged 2.5 hours EEG on 08/24/2022 was abnormal with evidence of runs of 1 Hz LPDs plus there was lateralized periodic discharges, sharp and slow and poly-sharp and slow waves over the left parietal region with spread more anteriorly. There are also some discharges semi-periodic LPDs over the right posterior quadrants. Exact cause remains uncertain. * Repeat CT head 08/24/2022, which did not reveal any acute intracranial process. However there is possible bilateral mastoiditis and middle ear infections spread. Correlate clinically. Patchy paranasal sinus disease. I personally reviewed CT head, and there is evidence of air-fluid level in the left maxillary sinus. Agree with evidence of possible bilateral mastoiditis and fluid in the middle ear. I discussed with PCP about possibility of lumbar puncture. ID is also on board. Patient currently on Eraxis, Zerbaxa, daptomycin. Per ID, patient is already covered well for meningitis. * Patient's initial Ammonia was 214. Latest was 171. Patient on lactulose. * CT abdomen revealed possibility of perforated viscus. Surgery on board. Patient was considered not a candidate for surgery because of hemodynamic instability. * Patient is on high dose pressors * Hypocalcemia, 6.1 today. Recommend appropriate treatment as per IM and critical care. * We'll defer the rest of medical management to primary and ICU team * The patient condition is very critical. Prognosis appears very poor at this time. Patient's daughter and patient's are aware of the prognosis. * I had length discussion with the patient's and daughter who are at bedside. Also discussed with nurse. For tomorrow, I will attempt to wean the patient sedation and obtain a prolonged 2.5 hour EEG. Will continue to follow Time with Patient: Greater than 30
[2022-08-28] MEDS ORDERED: POTASSIUM BICARBONATE/CIT AC 20 MEQ TABLET.EFF NG-TUBE SCH (17:00)
[2022-08-28 17:29] LABS: Glucose,Whole Blood 97 mg/dL (70-110)
[2022-08-28 18:14] LABS: Glucose,Whole Blood 55 mg/dL (70-110)
[2022-08-28 18:21] LABS: Glucose,Whole Blood 104 mg/dL (70-110)
[2022-08-28 20:08] LABS: Glucose,Whole Blood 99 mg/dL (70-110)
[2022-08-28] MEDS: metOLazone 5 MG TAB PO SCH (20:46)
[2022-08-28 23:27] LABS: Glucose,Whole Blood 122 mg/dL (70-110)
[2022-08-29] MEDS: LINEZOLID 600 MG in DEXTROSE/WATER 1 300ML.BAG IVPB SCH ×2 (00:22→12:34)
[2022-08-29] MEDS: MIDAZOLAM HCL 50 MG in SODIUM CHLORIDE 0.9% 40 ML IV SCH ×5 (00:22→21:14)
[2022-08-29 05:02] LABS: Ionized Calcium 4.8 mg/dL (4.5-5.3)
[2022-08-29 05:05] LABS: Anisocytosis Slight; HCT 22.3 % (34.0-46.0); Hypochromasia Marked; MCH 25.3 pg (25.0-35.0); MCHC 29.2 g/dL (31.0-37.0); MCV 86.5 fL (80.0-100.0); Mean Platelet Volume 10.2; Platelet Count 255 k/uL (150-450); Poikilocytosis Slight; RBC 2.58 m/uL (3.80-5.40); RDW 18.9 % (11.5-15.5)
[2022-08-29 05:12] LABS: HGB 6.5 gm/dL (11.4-16.0)
[2022-08-29 05:13] LABS: Albumin 1.6 g/dL (3.5-5.0); Calcium 6.9 mg/dL (8.4-10.2); Magnesium 2.1 mg/dL (1.6-2.3); Phosphorus 3.4 mg/dL (2.5-4.5); Potassium 4.3 mmol/L (3.5-5.1); Total Bilirubin 0.2 mg/dL (0.2-1.3)
[2022-08-29] MEDS: NOREPINEPHRINE 32 MG in SODIUM CHLORIDE 0.9% 218 ML IV SCH ×2 (05:14→20:06)
[2022-08-29] MEDS: FUROSEMIDE 100 MG in SODIUM CHLORIDE 0.9% 90 ML IV SCH ×3 (05:14→21:11)
[2022-08-29] MEDS: 1: MVI, ADULT NO.4 WITH VIT K 10 ML, TRACE (CONC-1ML/DOSE) 1 ML, SODIUM ACETATE 50 MEQ, IV SCH ×7 (05:18)
[2022-08-29 05:26] LABS: Glucose,Whole Blood 186 mg/dL (70-110)
[2022-08-29 05:39] LABS: Band Neutrophils % 2 %; Lymphocytes # (M) 1.36 k/uL (1.0-4.8); Neutrophils % (M) 89 %; Nucleated Red Blood Cells 8 /100 WBC (0-0); Total Cells Counted 200; WBC 22.6 k/uL (3.8-10.6)
[2022-08-29 05:40] LABS: Polychromasia Present
[2022-08-29 06:00] LABS: ABG Base Excess -2.5 mmol/L; ABG HCO3 24 mmol/L (21-25); ABG Oxygen Saturation 98.1 % (94-97); ABG PCO2 46 mmHg (35-45); ABG PH 7.32 (7.35-7.45); ABG PO2 105 mmHg (83-108); ABG TCO2 25 mmol/L (19-24); Allen Test Performed? Yes
[2022-08-29] MEDS: INSULIN ASPART (NovoLOG) 100 UNIT/ML VIAL SQ SCH ×3 (06:16→18:05)
[2022-08-29] MEDS: CEFTOLOZANE/TAZOBACTAM 0.75 GM in SODIUM CHLORIDE 0.9% 100 ML IV SCH ×2 (08:19→17:19)
[2022-08-29] MEDS: polyethylene glycoL 3350 17 GM POWD.PACK PO SCH ×2 (08:20→20:58)
[2022-08-29] MEDS: ANIDULAFUNGIN 100 MG in SODIUM CHLORIDE 0.9% 100 ML IVPB SCH (08:20)
[2022-08-29] MEDS: methylPREDNISolone SOD SUCCI 40 MG/ML 1 ML VIAL IV SCH ×2 (08:20→17:19)
[2022-08-29] MEDS: TAMSULOSIN 0.4 MG CAP.ER.24H PO SCH (08:21)
[2022-08-29] MEDS: PANTOPRAZOLE 40 MG/10 ML VIAL IVP SCH (08:21)
[2022-08-29] MEDS: metOLazone 5 MG TAB PO SCH ×2 (08:21→20:58)
[2022-08-29] MEDS: LACTULOSE 20 GM/30 ML CUP PO SCH ×4 (08:21→20:44)
[2022-08-29] MEDS: AMIODARONE 200 MG TAB PO SCH ×2 (08:21→20:44)
[2022-08-29] MEDS: FORMOTEROL FUMARATE 20 MCG/2 ML NEBU INHALATION SCH ×2 (08:32→20:22)
[2022-08-29] MEDS: ALBUTEROL NEBULIZED 2.5 MG/3 ML INHALATION SCH ×4 (08:32→20:22)
[2022-08-29] MEDS: BUDESONIDE 1 MG/2 ML NEBU INHALATION SCH ×2 (08:32→20:21)
[2022-08-29] MEDS: IPRATROPIUM 0.5 MG/2.5 ML NEBU INHALATION SCH ×4 (08:32→20:22)
--- NOTE | 2022-08-29 08:47 | XR ---
EXAMINATION TYPE: XR chest 1V portable DATE OF EXAM: 08/29/2022 COMPARISON: 08/27/2022 HISTORY: Cough TECHNIQUE: Single frontal view of the chest is obtained. FINDINGS: Bilateral lower lobe consolidation and pleural effusion. Postoperative changes overlying t he cervical spine. Tracheostomy tube seen with the tip overlying the proximal thoracic inlet. Left-si ded central line stable. Diffuse interstitial pattern. Hypertrophic and degenerative changes of the s pine. NG tube stable. IMPRESSION: 1. Bilateral infiltrate and pleural effusion could be on the basis of pneumonia correlate clinically to exclude CHF.
[2022-08-29] MEDS: levETIRAcetam IV 1,000 MG in SALINE 1 100ML.BAG IVPB SCH ×2 (10:04→20:44)
--- NOTE | 2022-08-29 10:11 | P.PN ---
Subjective Progress Note Date: 08/29/22 Principal diagnosis: Respiratory failure. Reevaluated today on 08/25/2022, patient remains in the ICU, intubated and mechanically ventilated, he is on assist control rate of 28th of volume 400 FiO2 50% PEEP of 5 ABG showed a pO2 of 91 pCO2 42 pH of 7.28 patient is scheduled to undergo tracheostomy and PEG tube placement today, hence no changes were made in her present ventilator settings. Patient is still maximized on pressors including norepinephrine at 0.5 mcg/kg/m vasopressin at 0.04 units per minute she is also on amiodarone 1 mg/m TPN at 50 mL/h. Sodium bicarb 3 A in D5W at 75 mL per hour she is also on Versed 6 mg per hour. Chest x-ray shows worsening in her bilateral pneumonia. WBC count is getting worse today 21.7 hemoglobin is 7.3, basic metabolic profile showed slightly low potassium of 3.0, BUN is 79 creatinine 1.87, basically unchanged in the last couple of days. Serum albumin is 1.7. Ionized calcium is 5.2, patient received calcium earlier today Reevaluated today on 08/26/2022, patient remains in the ICU, intubated mechanically ventilated, she is now on assist control rate of 30 tidal volume 400 FiO2 45% PEEP is at 10. Try to go down on the feet, however the patient desaturated and I kept her on a PEEP of 10. ABG today showed a pO2 of 84 pCO2 47 pH of 7.26. Patient remains on multiple drips, she had uneventful tracheostomy placed on 08/25 yesterday. However she did not have a PEG tube, continues to have a nasogastric tube in place. She is now on norepinephrine at 0.47 vasopressin at 0.04 amiodarone at 1 mg/m, bicarb at 75 mL/h Versed at 7 mg per hour today I added Solu-Medrol 40 mg IV push every 8 hours. Mostly because on physical examination she has significant rhonchi and wheezes chest x-ray continues to show bilateral infiltrates. Not much of a change. Overall clinical status about the same and unchanged. Patient remains quite swollen and edematous. Remains on Lasix 80 mg IV push daily. WBC count is rising 21.3. H emoglobin is 7.2. Basic metabolic profile is abnormal with low potassium and low sodium low bicarb elevated BUN of 76 creatinine 1.74. Ionized calcium is 5.6 ammonia level remains elevated at 171. Reevaluated today on 08/27/2022, patient remains in the ICU, intubated and mechanically ventilated sedated, patient is on multiple drips including norepinephrine at 0.3 mcg/kg/m vasopressin at 0.04, amiodarone, bicarbonate 75 ML per hour, and she is also on Versed 7 mg per hour. Patient is on assist control rate of 30 tidal volume 400 FiO2 45% PEEP of 10 ABG showed a pO2 of 100 pCO2 48 pH of 7.30. Patient has been receiving Versed, today I recommended that we stop the Versed and assess mental status if possible. Patient continues to have multiple medical issues, and I believe the patient is worsening clinically. Now she is developing ischemic changes in her fingers and in her toes, becoming more cyanotic. And that is mostly because of significant amount of pressors and the patient has been receiving. Today I recommended that we cut down on the presses since her blood pressure seems to be better and I recommended that we stop her Versed to assess mental status if possible. Hospice son is at bedside, updated the son in her condition, family is very well aware that her condition i s extremely poor and futile, nonetheless the is not ready to let go. I have strongly recommended comfort care measures, remains reluctant to do so. WBC count today is 21.3 hemoglobin 7.2. Basic metabolic profile is normal however her BUN is 75 creatinine 1.8 2, chest x-ray continues to show bilateral air space disease and possibly bilateral pleural effusions tracheostomy seems to be in proper position. Progress note dated 08/28/2022. 87-year-old female who was admitted back on August 08. She initially came in with urinary tract infection, possible bowel obstruction, and sepsis. The patient came to the intensive care unit one day later on the , and was intubated on August 10. For prolonged respiratory failure, and inability to wean, the patient underwent tracheostomy on August 25, and is apparently scheduled to have a PEG tube placed today. She remains on volume assist control, rate 30, tidal volume 400, FiO2 45%, and PEEP of 10. Arterial blood gases show pO2 of 95, pCO2 51, and pH is 7.25. The patient remains on TPN at 65 mL an hour, norepinephrine at 46 mcg/m, Versed 7 mg an hour, saline at KVO, insulin at 50 units an hour, and Lasix at 10 mg an hour. White count 22.4, hemoglobin 6.9, hematocrit 22.6, and platelet count 277,000. Sodium 1:30, potassium 3.6, chlorides 97, CO2 23, BUN 79, and creatinine 1.70. Review his blood cultures from the and August 23 show vancomycin-resistant enterococcus. There was no chest x-ray today. Progress note dated 08/29/2022. 87-year-old female who was admitted back on August 08. She initially came in with urinary tract infection, possible bowel obstruction, and sepsis. The patient came to the intensive care unit one day later on the , and was intubated on August 10. For prolonged respiratory failure, and inability to wean, the patient underwent tracheostomy on August 25. The patient remains on the volume assist control, tidal volume 400, FiO2 5%, and PEEP of 10. Arterial blood gases show pO2 105, pCO2 46, pH is 7.32. His blood gases are consistent with a mild respiratory acidosis. The patient remains on Lasix at 10 mg an hour, TPN at 65 mL an hour, Versed 9 mg an hour, norepinephrine at 21 mcg/m, vasopressin at 0.04 units per minute, and saline at 30 mL an hour. The patient received 1 unit packed red blood cells for hemoglobin of 6.5. Her antibiotics include Eraxis, Zyvox and Zerbaxa. White count is 22.6, hemoglobin 6.5, hematocrit 22.3, with a normal platelet count. Sodium 129, potassium 4.3, chlorides 96, CO2 24, BUN 80, and creatinine 1.62. Albumin is 1.6. Chest x-ray shows bilateral infiltrates, which may be on the basis of pneumonia versus CHF. Objective - Vital Signs Vital signs: Vital Signs Temp 97.4 F L 08/29/22 04:00 Pulse 90 08/29/22 09:19 Resp 30 H 08/29/22 07:00 BP 105/37 08/29/22 07:00 Pulse Ox 96 08/29/22 07:00 FiO2 45 08/29/22 08:31 Intake & Output 08/28/22 08/29/22 08/29/22 18:59 06:59 18:59 Intake Total 2837.316 858.285 23 Output Total 730 1295 100 Balance 2107.316 -436.715 -77 Weight 146 kg Intake: IV 671 541 23 0.9% @ KVO 130 230 20 Anidulafungin 100 mg In 100 Sodium Chloride 0.9% 100 ml @ 84 mls/hr IVPB DAILY [facility] Rx#:[id number] Furosemide 100 mg In 110 110 Sodium Chloride 0.9% 90 ml @ 10 MG/HR 10 mls/hr IV .Q10H [facility] Rx#: [id number] Pressure Bag 36 36 3 Sodium Acetate 30 meq 195 65 Potassium Chloride 30 meq Magnesium Sulfate gm 0.5 gm Calcium Gluconate 2 gm In Amino Acids 5 %/ Dextrose 20 % 1,000 ml @ 65 mls/hr IV .BY DURATION [facility] Rx#:[id number] levETIRAcetam IV 1,000 mg 100 100 In Saline 1 100ml.bag @ 400 mls/hr IVPB Q12HR [facility] Rx#:[id number] Intake, IV Titration 2166.316 317.285 Amount Furosemide 100 mg In 100 Sodium Chloride 0.9% 90 ml @ 10 MG/HR 10 mls/hr IV .Q10H [facility] Rx#: [id number] Insulin Regular 100 unit 100 In Sodium Chloride 0.9% 100 ml @ Titrate IV .Q0M [facility] Rx#:[id number] Linezolid 600 mg In 300 Dextrose/Water 1 300ml. bag @ 150 mls/hr IVPB Q12H [facility] Rx#:[id number] Midazolam HCl 50 mg In 70.883 113.40 Sodium Chloride 0.9% 40 ml @ 6 MG/HR 6 mls/hr IV .Q8H20M [facility] Rx#:[id number] Mvi, Adult No.4 with Vit 1223 K 10 ml Trace (Conc-1Ml/ Dose) 1 ml Sodium Acetate 50 meq Potassium Chloride 50 meq Magnesium Sulfate gm 1 gm Calcium Gluconate 3 gm In Amino Acids 5 %/Dextrose 20 % 1 ,000 ml @ 65 mls/hr IV . BY DURATION [facility] Rx#: [id number] Norepinephrine 32 mg In 147.433 103.885 Sodium Chloride 0.9% 218 ml @ 0.5 MCG/KG/MIN 25. 547 mls/hr IV .Q9H48M [facility] Rx#:[id number] Sodium Acetate 50 meq 325 Potassium Chloride 50 meq Magnesium Sulfate gm 1 gm Calcium Gluconate 3 gm In Amino Acids 5 %/ Dextrose 20 % 1,000 ml @ 65 mls/hr IV .BY DURATION [facility] Rx#:[id number] Vasopressin 60 unit In 0 Sodium Chloride 0.9% 150 ml @ 0.04 UNITS/MIN 6.12 mls/hr IV .Q24H [facility] Rx#: [id number] Blood Product 0 Rc As-1 Unit 0 [id number] Output: Urine 230 795 100 Stool 500 500 Other: Voiding Method Indwelling Catheter Indwelling Catheter ABP, PAP, CO, CI - Last Documented Arterial Blood Pressure 90/54 - Exam No acute distress, heavily sedated, and currently on the mechanical ventilator. HEENT examination is grossly unremarkable. Neck supple. Full range of motion. No adenopathy thyromegaly or neck vein distention. A midline tracheostomy tube is noted. Cardiovascular examination reveals regular rhythm rate. S1-S2 normal. No S3 or S4. No discernible murmur noted. Heart rate 90 bpm. Lungs reveal scattered bilateral rhonchi. Breath sounds equal. Saturations are 95 %. Abdomen obese, without bowel sounds. Extremities reveal bilateral lower extremity edema. Skin is without rash or lesion. Neurologic examination cannot be adequately assessed. - Labs CBC & Chem 7: 08/29/22 04:20 08/29/22 04:20 Labs: Abnormal Lab Results - Last 24 Hours (Table) 08/28/22 08/28/22 08/28/22 Range/Units 10:26 12:14 13:37 WBC (3.8-10.6) k/uL RBC (3.80-5.40) m/uL Hgb (11.4-16.0) gm/dL Hct (34.0-46.0) % MCHC (31.0-37.0) g/dL RDW (11.5-15.5) % Neutrophils # (Manual) (1.3-7.7) k/uL Nucleated RBCs (0-0) /100 WBC ABG pH (7.35-7.45) ABG pCO2 (35-45) mmHg ABG Total CO2 (19-24) mmol/L ABG O2 Saturation (94-97) % Sodium (137-145) mmol/L Chloride (98-107) mmol/L BUN (7-17) mg/dL Creatinine (0.52-1.04) mg/dL Glucose (74-99) mg/dL POC Glucose (mg/dL) 174 H 137 H 117 H (70-110) mg/dL Calcium (8.4-10.2) mg/dL AST (14-36) U/L Alkaline Phosphatase (38-126) U/L Total Protein (6.3-8.2) g/dL Albumin (3.5-5.0) g/dL Crossmatch 08/28/22 08/28/22 08/29/22 Range/Units 18:12 23:25 04:20 WBC (3.8-10.6) k/uL RBC (3.80-5.40) m/uL Hgb (11.4-16.0) gm/dL Hct (34.0-46.0) % MCHC (31.0-37.0) g/dL RDW (11.5-15.5) % Neutrophils # (Manual) (1.3-7.7) k/uL Nucleated RBCs (0-0) /100 WBC ABG pH (7.35-7.45) ABG pCO2 (35-45) mmHg ABG Total CO2 (19-24) mmol/L ABG O2 Saturation (94-97) % Sodium 129 L (137-145) mmol/L Chloride 96 L (98-107) mmol/L BUN 80 H (7-17) mg/dL Creatinine 1.62 H (0.52-1.04) mg/dL Glucose 168 H (74-99) mg/dL POC Glucose (mg/dL) 55 L 122 H (70-110) mg/dL Calcium 6.9 L (8.4-10.2) mg/dL AST 40 H (14-36) U/L Alkaline Phosphatase 162 H (38-126) U/L Total Protein 4.0 L (6.3-8.2) g/dL Albumin 1.6 L (3.5-5.0) g/dL Crossmatch 08/29/22 08/29/22 08/29/22 Range/Units 04:20 05:24 05:55 WBC 22.6 H (3.8-10.6) k/uL RBC 2.58 L (3.80-5.40) m/uL Hgb 6.5 L* (11.4-16.0) gm/dL Hct 22.3 L (34.0-46.0) % MCHC 29.2 L (31.0-37.0) g/dL RDW 18.9 H (11.5-15.5) % Neutrophils # (Manual) 20.50 H (1.3-7.7) k/uL Nucleated RBCs 8 H (0-0) /100 WBC ABG pH 7.32 L (7.35-7.45) ABG pCO2 46 H (35-45) mmHg ABG Total CO2 25 H (19-24) mmol/L ABG O2 Saturation 98.1 H (94-97) % Sodium (137-145) mmol/L Chloride (98-107) mmol/L BUN (7-17) mg/dL Creatinine (0.52-1.04) mg/dL Glucose (74-99) mg/dL POC Glucose (mg/dL) 186 H (70-110) mg/dL Calcium (8.4-10.2) mg/dL AST (14-36) U/L Alkaline Phosphatase (38-126) U/L Total Protein (6.3-8.2) g/dL Albumin (3.5-5.0) g/dL Crossmatch 08/29/22 Range/Units 05:56 WBC (3.8-10.6) k/uL RBC (3.80-5.40) m/uL Hgb (11.4-16.0) gm/dL Hct (34.0-46.0) % MCHC (31.0-37.0) g/dL RDW (11.5-15.5) % Neutrophils # (Manual) (1.3-7.7) k/uL Nucleated RBCs (0-0) /100 WBC ABG pH (7.35-7.45) ABG pCO2 (35-45) mmHg ABG Total CO2 (19-24) mmol/L ABG O2 Saturation (94-97) % Sodium (137-145) mmol/L Chloride (98-107) mmol/L BUN (7-17) mg/dL Creatinine (0.52-1.04) mg/dL Glucose (74-99) mg/dL POC Glucose (mg/dL) (70-110) mg/dL Calcium (8.4-10.2) mg/dL AST (14-36) U/L Alkaline Phosphatase (38-126) U/L Total Protein (6.3-8.2) g/dL Albumin (3.5-5.0) g/dL Crossmatch See Detail Assessment and Plan Assessment: Acute on chronic hypoxemic respiratory failure, status post intubation on , and tracheostomy on August 25. Status post PEG tube placement, 08/28/2022. Acute on chronic diastolic CHF. Abdominal sepsis/septic shock. Anion gap metabolic acidosis. Urinary tract infection secondary to Enterococcus faecalis and pseudomonas aeruginosa. Bacteremia secondary to vancomycin-resistant enterococci. Systemic candidiasis. Atrial fibrillation with RVR. Acute on chronic kidney disease. Recent history of coronavirus infection. History of aortic stenosis. Acute on chronic anemia. History of COPD. History of diastolic congestive heart failure. Morbid obesity. Plan: Plan dated 08/28/2022. The patient remains a DO NOT RESUSCITATE patient, but the patient family still wants everything done at this time. The patient will continue on GI and DVT pr ophylaxis. The patient continues on antibiotics as per infectious diseases. The patient remains on norepinephrine at 46 mcg/m. She also remains on Versed, because of ongoing seizure activity. The patient continues on insulin at 50 units an hour, and a Lasix drip, as well as TPN. The plan is to do a PEG tube today. Additional recommendations and suggestions are forthcoming. Labs, x- rays, and medications are reviewed. Patient is very critically ill, and overall prognosis remains guarded. Plan dated 08/29/2022. The patient remains a DO NOT RESUSCITATE patient. The patient did have a PEG tube placed yesterday. She remains on multiple drips including Lasix, Versed, norepinephrine, and vasopressin. She will receive 1 unit of packed red blood cells for hemoglobin 6.5. He remains on good antibiotics and antifungals. Blood gases show a very mild respiratory acidosis. She remains on 45% and 10 of PEEP. Prognosis is very guarded. We will continue to follow make recommendations along the way. Time with Patient: Greater than 30
[2022-08-29] MEDS: LACOSAMIDE IV 150 MG in SODIUM CHLORIDE 0.9% 50 ML IVPB SCH ×2 (10:35→21:11)
[2022-08-29] MEDS: PHENYTOIN SODIUM INJ 300 MG in SODIUM CHLORIDE 0.9% 50 ML IVPB SCH (11:41)
[2022-08-29] MEDS: FAT EMULSION 20% 250 ML in EMPTY BAG 1 BAG IV SCH (11:42)
[2022-08-29 11:44] LABS: Glucose,Whole Blood 86 mg/dL (70-110)
[2022-08-29 12:22] LABS: Glucose,Whole Blood 187 mg/dL (70-110)
--- NOTE | 2022-08-29 12:31 | P.PN ---
Subjective Progress Note Date: 08/29/22 Principal diagnosis: Sepsis/septic shock Patient is a 87-year-old female with multiple comorbidities presented to the hospital with a syncopal episode weakness subsequently hypotension, sepsis requiring transfer to the ICU and intubation on the vent. She patient did have a CT of abdominal pelvis completed on 08/20/2022 with evidence of pneumoperitoneum Gen. surgery discussed with the family currently being treated medically On today's evaluation that is 08/29/2022, the patient continues to be afebrile, the patient is requiring less pressor support compared to yesterday to maintain her blood pressure per the nursing staff, the patient FiO2 is currently stable at 45 %, no purulent secretions through the ET , patient did have NG to suction, patient is on TPN for nutrition, patient is also on Lasix and insulin drip, PEG tube could not be placed at the bedside yesterday Objective - Vital Signs Vital signs: Vital Signs Temp 97.4 F L 08/29/22 04:00 Pulse 90 08/29/22 09:19 Resp 30 H 08/29/22 07:00 BP 105/37 08/29/22 07:00 Pulse Ox 96 08/29/22 07:00 FiO2 45 08/29/22 08:31 Intake & Output 08/28/22 08/29/22 08/29/22 18:59 06:59 18:59 Intake Total 2837.316 858.285 23 Output Total 730 1295 100 Balance 2107.316 -436.715 -77 Weight 146 kg Intake: IV 671 541 23 0.9% @ KVO 130 230 20 Anidulafungin 100 mg In 100 Sodium Chloride 0.9% 100 ml @ 84 mls/hr IVPB DAILY [facility] Rx#:[id number] Furosemide 100 mg In 110 110 Sodium Chloride 0.9% 90 ml @ 10 MG/HR 10 mls/hr IV .Q10H [facility] Rx#: [id number] Pressure Bag 36 36 3 Sodium Acetate 30 meq 195 65 Potassium Chloride 30 meq Magnesium Sulfate gm 0.5 gm Calcium Gluconate 2 gm In Amino Acids 5 %/ Dextrose 20 % 1,000 ml @ 65 mls/hr IV .BY DURATION [facility] Rx#:[id number] levETIRAcetam IV 1,000 mg 100 100 In Saline 1 100ml.bag @ 400 mls/hr IVPB Q12HR [facility] Rx#:[id number] Intake, IV Titration 2166.316 317.285 Amount Furosemide 100 mg In 100 Sodium Chloride 0.9% 90 ml @ 10 MG/HR 10 mls/hr IV .Q10H [facility] Rx#: [id number] Insulin Regular 100 unit 100 In Sodium Chloride 0.9% 100 ml @ Titrate IV .Q0M [facility] Rx#:[id number] Linezolid 600 mg In 300 Dextrose/Water 1 300ml. bag @ 150 mls/hr IVPB Q12H [facility] Rx#:[id number] Midazolam HCl 50 mg In 70.883 113.40 Sodium Chloride 0.9% 40 ml @ 6 MG/HR 6 mls/hr IV .Q8H20M [facility] Rx#:[id number] Mvi, Adult No.4 with Vit 1223 K 10 ml Trace (Conc-1Ml/ Dose) 1 ml Sodium Acetate 50 meq Potassium Chloride 50 meq Magnesium Sulfate gm 1 gm Calcium Gluconate 3 gm In Amino Acids 5 %/Dextrose 20 % 1 ,000 ml @ 65 mls/hr IV . BY DURATION [facility] Rx#: [id number] Norepinephrine 32 mg In 147.433 103.885 Sodium Chloride 0.9% 218 ml @ 0.5 MCG/KG/MIN 25. 547 mls/hr IV .Q9H48M [facility] Rx#:[id number] Sodium Acetate 50 meq 325 Potassium Chloride 50 meq Magnesium Sulfate gm 1 gm Calcium Gluconate 3 gm In Amino Acids 5 %/ Dextrose 20 % 1,000 ml @ 65 mls/hr IV .BY DURATION [facility] Rx#:[id number] Vasopressin 60 unit In 0 Sodium Chloride 0.9% 150 ml @ 0.04 UNITS/MIN 6.12 mls/hr IV .Q24H [facility] Rx#: [id number] Blood Product 0 Rc As-1 Unit 0 [id number] Output: Urine 230 795 100 Stool 500 500 Other: Voiding Method Indwelling Catheter Indwelling Catheter ABP, PAP, CO, CI - Last Documented Arterial Blood Pressure 90/54 - Exam GENERAL DESCRIPTION: An elderly female intubated on the vent RESPIRATORY SYSTEM: Unlabored breathing , decreased breath sounds at bases HEART: S1 S2 regular rate and rhythm , ABDOMEN: Soft , abdominal distention EXTREMITIES: Diffuse swelling bilateral lower extremity no redness - Labs CBC & Chem 7: 08/29/22 04:20 08/29/22 04:20 Labs: Abnormal Lab Results - Last 24 Hours (Table) 08/28/22 08/28/22 08/28/22 Range/Units 10:26 12:14 13:37 WBC (3.8-10.6) k/uL RBC (3.80-5.40) m/uL Hgb (11.4-16.0) gm/dL Hct (34.0-46.0) % MCHC (31.0-37.0) g/dL RDW (11.5-15.5) % Neutrophils # (Manual) (1.3-7.7) k/uL Nucleated RBCs (0-0) /100 WBC ABG pH (7.35-7.45) ABG pCO2 (35-45) mmHg ABG Total CO2 (19-24) mmol/L ABG O2 Saturation (94-97) % Sodium (137-145) mmol/L Chloride (98-107) mmol/L BUN (7-17) mg/dL Creatinine (0.52-1.04) mg/dL Glucose (74-99) mg/dL POC Glucose (mg/dL) 174 H 137 H 117 H (70-110) mg/dL Calcium (8.4-10.2) mg/dL AST (14-36) U/L Alkaline Phosphatase (38-126) U/L Total Protein (6.3-8.2) g/dL Albumin (3.5-5.0) g/dL Crossmatch 08/28/22 08/28/22 08/29/22 Range/Units 18:12 23:25 04:20 WBC (3.8-10.6) k/uL RBC (3.80-5.40) m/uL Hgb (11.4-16.0) gm/dL Hct (34.0-46.0) % MCHC (31.0-37.0) g/dL RDW (11.5-15.5) % Neutrophils # (Manual) (1.3-7.7) k/uL Nucleated RBCs (0-0) /100 WBC ABG pH (7.35-7.45) ABG pCO2 (35-45) mmHg ABG Total CO2 (19-24) mmol/L ABG O2 Saturation (94-97) % Sodium 129 L (137-145) mmol/L Chloride 96 L (98-107) mmol/L BUN 80 H (7-17) mg/dL Creatinine 1.62 H (0.52-1.04) mg/dL Glucose 168 H (74-99) mg/dL POC Glucose (mg/dL) 55 L 122 H (70-110) mg/dL Calcium 6.9 L (8.4-10.2) mg/dL AST 40 H (14-36) U/L Alkaline Phosphatase 162 H (38-126) U/L Total Protein 4.0 L (6.3-8.2) g/dL Albumin 1.6 L (3.5-5.0) g/dL Crossmatch 08/29/22 08/29/22 08/29/22 Range/Units 04:20 05:24 05:55 WBC 22.6 H (3.8-10.6) k/uL RBC 2.58 L (3.80-5.40) m/uL Hgb 6.5 L* (11.4-16.0) gm/dL Hct 22.3 L (34.0-46.0) % MCHC 29.2 L (31.0-37.0) g/dL RDW 18.9 H (11.5-15.5) % Neutrophils # (Manual) 20.50 H (1.3-7.7) k/uL Nucleated RBCs 8 H (0-0) /100 WBC ABG pH 7.32 L (7.35-7.45) ABG pCO2 46 H (35-45) mmHg ABG Total CO2 25 H (19-24) mmol/L ABG O2 Saturation 98.1 H (94-97) % Sodium (137-145) mmol/L Chloride (98-107) mmol/L BUN (7-17) mg/dL Creatinine (0.52-1.04) mg/dL Glucose (74-99) mg/dL POC Glucose (mg/dL) 186 H (70-110) mg/dL Calcium (8.4-10.2) mg/dL AST (14-36) U/L Alkaline Phosphatase (38-126) U/L Total Protein (6.3-8.2) g/dL Albumin (3.5-5.0) g/dL Crossmatch 08/29/22 Range/Units 05:56 WBC (3.8-10.6) k/uL RBC (3.80-5.40) m/uL Hgb (11.4-16.0) gm/dL Hct (34.0-46.0) % MCHC (31.0-37.0) g/dL RDW (11.5-15.5) % Neutrophils # (Manual) (1.3-7.7) k/uL Nucleated RBCs (0-0) /100 WBC ABG pH (7.35-7.45) ABG pCO2 (35-45) mmHg ABG Total CO2 (19-24) mmol/L ABG O2 Saturation (94-97) % Sodium (137-145) mmol/L Chloride (98-107) mmol/L BUN (7-17) mg/dL Creatinine (0.52-1.04) mg/dL Glucose (74-99) mg/dL POC Glucose (mg/dL) (70-110) mg/dL Calcium (8.4-10.2) mg/dL AST (14-36) U/L Alkaline Phosphatase (38-126) U/L Total Protein (6.3-8.2) g/dL Albumin (3.5-5.0) g/dL Crossmatch See Detail Assessment and Plan (1) Sepsis Current Visit: Yes Status: Acute Code(s): A41.9 - SEPSIS, UNSPECIFIED ORGANISM SNOMED Code(s): 57394653 Plan: 1patient was in the hospital with sepsis and septic shock initially concern for multidrug-resistant Pseudomonas UTI, patient also have a candidemia secondary to possible abdominal source and now with a VRE bacteremia source likely abdominal 2patient did have evidence of colonic perforation and peritonitis being managed medically as the patient considered to be high risk for any surgical procedure 3patient did have persistent VRE bacteremia and could be related to the multiple lines , patient will benefit from removal of those lines to control her bacteremia, patient family has been insisting on blood cultures which has been ordered though they have been told in layman terms it became a positive possibly related to her lines 4-the patient clinical condition remains to be guarded however the patient did have resolution of her fever and white count still elevated could be related to steroids 5- patient to continue with Zyvox Zerbex and Eraxis and continue supportive care Family the bedside and they have multiple questions were answered in Layman terms Time with Patient: Greater than 30
--- NOTE | 2022-08-29 12:43 | P.PN ---
Subjective Patient is seen for follow-up for acute kidney injury, mostly ATN. Etiology is sepsis with fungemia and UTI with urine cultures growing Pseudomonas and enterococcus. Patient also has left lower lobe pneumonia. Patient remains on the vent. FiO2 is at 40%. Patient remains on levo fed and vasopressin. Started on Lasix drip for severe volume overload. Urine output had decreased to about 15 ML per hour. It has improved to about 100 mL an hour for the last few hours. Maintained on TPN Having EEG done Objective - Vital Signs Vital signs: Vital Signs Temp 97.4 F L 08/29/22 04:00 Pulse 90 08/29/22 12:31 Resp 30 H 08/29/22 07:00 BP 105/37 08/29/22 07:00 Pulse Ox 96 08/29/22 07:00 FiO2 45 08/29/22 12:00 Intake & Output 08/28/22 08/29/22 08/29/22 18:59 06:59 18:59 Intake Total 2837.316 858.285 71 Output Total 730 1295 100 Balance 2107.316 -436.715 -29 Weight 146 kg 146 kg Intake: IV 671 541 23 0.9% @ KVO 130 230 20 Anidulafungin 100 mg In 100 Sodium Chloride 0.9% 100 ml @ 84 mls/hr IVPB DAILY [facility] Rx#:[id number] Furosemide 100 mg In 110 110 Sodium Chloride 0.9% 90 ml @ 10 MG/HR 10 mls/hr IV .Q10H [facility] Rx#: [id number] Pressure Bag 36 36 3 Sodium Acetate 30 meq 195 65 Potassium Chloride 30 meq Magnesium Sulfate gm 0.5 gm Calcium Gluconate 2 gm In Amino Acids 5 %/ Dextrose 20 % 1,000 ml @ 65 mls/hr IV .BY DURATION [facility] Rx#:[id number] levETIRAcetam IV 1,000 mg 100 100 In Saline 1 100ml.bag @ 400 mls/hr IVPB Q12HR [facility] Rx#:[id number] Intake, IV Titration 2166.316 317.285 48 Amount Furosemide 100 mg In 100 Sodium Chloride 0.9% 90 ml @ 10 MG/HR 10 mls/hr IV .Q10H [facility] Rx#: [id number] Insulin Regular 100 unit 100 In Sodium Chloride 0.9% 100 ml @ Titrate IV .Q0M [facility] Rx#:[id number] Linezolid 600 mg In 300 Dextrose/Water 1 300ml. bag @ 150 mls/hr IVPB Q12H [facility] Rx#:[id number] Midazolam HCl 50 mg In 70.883 113.40 48 Sodium Chloride 0.9% 40 ml @ 6 MG/HR 6 mls/hr IV .Q8H20M [facility] Rx#:[id number] Mvi, Adult No.4 with Vit 1223 K 10 ml Trace (Conc-1Ml/ Dose) 1 ml Sodium Acetate 50 meq Potassium Chloride 50 meq Magnesium Sulfate gm 1 gm Calcium Gluconate 3 gm In Amino Acids 5 %/Dextrose 20 % 1 ,000 ml @ 65 mls/hr IV . BY DURATION [facility] Rx#: [id number] Norepinephrine 32 mg In 147.433 103.885 Sodium Chloride 0.9% 218 ml @ 0.5 MCG/KG/MIN 25. 547 mls/hr IV .Q9H48M [facility] Rx#:[id number] Sodium Acetate 50 meq 325 Potassium Chloride 50 meq Magnesium Sulfate gm 1 gm Calcium Gluconate 3 gm In Amino Acids 5 %/ Dextrose 20 % 1,000 ml @ 65 mls/hr IV .BY DURATION [facility] Rx#:[id number] Vasopressin 60 unit In 0 Sodium Chloride 0.9% 150 ml @ 0.04 UNITS/MIN 6.12 mls/hr IV .Q24H [facility] Rx#: [id number] Blood Product 0 Rc As-1 Unit 0 [id number] Output: Urine 230 795 100 Stool 500 500 Other: Voiding Method Indwelling Catheter Indwelling Catheter ABP, PAP, CO, CI - Last Documented Arterial Blood Pressure 90/54 - Exam Patient is sedated and on the vent. Examination of the heart S1 and S2 Examination of the lungs bilateral breath sounds are heard Abdomen is soft distended obese Examination lower extremity shows edema 3 + bilaterally upper and lower extremities Discoloration noted in upper and lower extremities EDUCATIONAL PARAPROFESSIONAL exam cannot be performed - Labs CBC & Chem 7: 08/29/22 04:20 08/29/22 04:20 Labs: Abnormal Lab Results - Last 24 Hours (Table) 08/28/22 08/28/22 08/28/22 Range/Units 13:37 18:12 23:25 WBC (3.8-10.6) k/uL RBC (3.80-5.40) m/uL Hgb (11.4-16.0) gm/dL Hct (34.0-46.0) % MCHC (31.0-37.0) g/dL RDW (11.5-15.5) % Neutrophils # (Manual) (1.3-7.7) k/uL Nucleated RBCs (0-0) /100 WBC ABG pH (7.35-7.45) ABG pCO2 (35-45) mmHg ABG Total CO2 (19-24) mmol/L ABG O2 Saturation (94-97) % Sodium (137-145) mmol/L Chloride (98-107) mmol/L BUN (7-17) mg/dL Creatinine (0.52-1.04) mg/dL Glucose (74-99) mg/dL POC Glucose (mg/dL) 117 H 55 L 122 H (70-110) mg/dL Calcium (8.4-10.2) mg/dL AST (14-36) U/L Alkaline Phosphatase (38-126) U/L Total Protein (6.3-8.2) g/dL Albumin (3.5-5.0) g/dL Crossmatch 08/29/22 08/29/22 08/29/22 Range/Units 04:20 04:20 05:24 WBC 22.6 H (3.8-10.6) k/uL RBC 2.58 L (3.80-5.40) m/uL Hgb 6.5 L* (11.4-16.0) gm/dL Hct 22.3 L (34.0-46.0) % MCHC 29.2 L (31.0-37.0) g/dL RDW 18.9 H (11.5-15.5) % Neutrophils # (Manual) 20.50 H (1.3-7.7) k/uL Nucleated RBCs 8 H (0-0) /100 WBC ABG pH (7.35-7.45) ABG pCO2 (35-45) mmHg ABG Total CO2 (19-24) mmol/L ABG O2 Saturation (94-97) % Sodium 129 L (137-145) mmol/L Chloride 96 L (98-107) mmol/L BUN 80 H (7-17) mg/dL Creatinine 1.62 H (0.52-1.04) mg/dL Glucose 168 H (74-99) mg/dL POC Glucose (mg/dL) 186 H (70-110) mg/dL Calcium 6.9 L (8.4-10.2) mg/dL AST 40 H (14-36) U/L Alkaline Phosphatase 162 H (38-126) U/L Total Protein 4.0 L (6.3-8.2) g/dL Albumin 1.6 L (3.5-5.0) g/dL Crossmatch 08/29/22 08/29/22 08/29/22 Range/Units 05:55 05:56 12:20 WBC (3.8-10.6) k/uL RBC (3.80-5.40) m/uL Hgb (11.4-16.0) gm/dL Hct (34.0-46.0) % MCHC (31.0-37.0) g/dL RDW (11.5-15.5) % Neutrophils # (Manual) (1.3-7.7) k/uL Nucleated RBCs (0-0) /100 WBC ABG pH 7.32 L (7.35-7.45) ABG pCO2 46 H (35-45) mmHg ABG Total CO2 25 H (19-24) mmol/L ABG O2 Saturation 98.1 H (94-97) % Sodium (137-145) mmol/L Chloride (98-107) mmol/L BUN (7-17) mg/dL Creatinine (0.52-1.04) mg/dL Glucose (74-99) mg/dL POC Glucose (mg/dL) 187 H (70-110) mg/dL Calcium (8.4-10.2) mg/dL AST (14-36) U/L Alkaline Phosphatase (38-126) U/L Total Protein (6.3-8.2) g/dL Albumin (3.5-5.0) g/dL Crossmatch See Detail Assessment and Plan Assessment: 1. Acute kidney injury secondary to ATN from underlying infection with fungemia and urine tract infection with Pseudomonas and enterococcus. Urine output has decreased. Maintained on Lasix drip. 2. Hypotension secondary to sepsis, on levo fed and vasopressin 3. Ventilator dependent respiratory failure, stable 40% FiO2 status post trach and PEG 3. Left lower lobe pneumonia 4. UTI with Pseudomonas and enterococcus. 5. Hypocalcemia secondary to acute kidney injury. Severe nutritional vitamin D deficiency noted 6. Seizures, maintained on Keppra 7. Severe volume overload and third spacing, started on Lasix drip. Urine output remains low Plan: Continue with Lasix drip Continue with pressors Overall prognosis is guarded
--- NOTE | 2022-08-29 13:27 | P.PN ---
Subjective Progress Note Date: 08/29/22 CHIEF COMPLAINT: Abdominal pain HISTORY OF PRESENT ILLNESS: Patient remains in the ICU and on mechanical ventilation. Patient had tracheostomy placed on 08/25/2022. Patient was unable to have PEG tube placed yesterday because light reflex was not visualized during EGD. Patient remains on TPN for nutrition support. She is still requiring Levophed and vasopressin. Followed by neurology and on Versed for seizures. Patient did receive 1 unit of blood for Hemoglobin 6.5. Patient seen and examined with Dr. Head PHYSICAL EXAM: VITAL SIGNS: Reviewed GENERAL: On mechanical ventilation. Head is atraumatic, normocephalic. No nasal drainage. Tracheostomy site clean dry and intact NECK: Supple without lymphadenopathy. CHEST: Non-labored respirations and equal bilateral excursions. CARDIOVASCULAR: Palpable 2+ radial pulses. ABDOMEN: Distended. NG tube with bilious output MUSCULOSKELETAL: No clubbing or cyanosis. ASSESSMENT: 1. Colon perforation 2. Sigmoid volvulus 3. Constipation 4. Sepsis and septic shock 5. UTI 6. Lactic acidosis 7. Acute on chronic kidney disease 8. History of atrial fibrillation 9. History of CVA 9. Hypokalemia 10. Hypocalcemia 11. Blood culture with yeast 12. Hepatic encephalopathy with elevated ammonia PLAN: -PEG tube was unable to be placed yesterday -Continue supportive care -Continue ICU -Continue GI and DVT prophylaxis Physician Sales Operations Lead note has been reviewed by physician. Signing provider agrees with the documented findings, assessment, and plan of care. Objective - Vital Signs Vital signs: Vital Signs Temp 97.4 F L 08/29/22 04:00 Pulse 90 08/29/22 09:19 Resp 30 H 08/29/22 07:00 BP 105/37 08/29/22 07:00 Pulse Ox 96 08/29/22 07:00 FiO2 45 08/29/22 08:31 Intake & Output 08/28/22 08/29/22 08/29/22 18:59 06:59 18:59 Intake Total 2837.316 858.285 71 Output Total 730 1295 100 Balance 2107.316 -436.715 -29 Weight 146 kg 146 kg Intake: IV 671 541 23 0.9% @ KVO 130 230 20 Anidulafungin 100 mg In 100 Sodium Chloride 0.9% 100 ml @ 84 mls/hr IVPB DAILY [facility] Rx#:[id number] Furosemide 100 mg In 110 110 Sodium Chloride 0.9% 90 ml @ 10 MG/HR 10 mls/hr IV .Q10H [facility] Rx#: [id number] Pressure Bag 36 36 3 Sodium Acetate 30 meq 195 65 Potassium Chloride 30 meq Magnesium Sulfate gm 0.5 gm Calcium Gluconate 2 gm In Amino Acids 5 %/ Dextrose 20 % 1,000 ml @ 65 mls/hr IV .BY DURATION [facility] Rx#:[id number] levETIRAcetam IV 1,000 mg 100 100 In Saline 1 100ml.bag @ 400 mls/hr IVPB Q12HR [facility] Rx#:[id number] Intake, IV Titration 2166.316 317.285 48 Amount Furosemide 100 mg In 100 Sodium Chloride 0.9% 90 ml @ 10 MG/HR 10 mls/hr IV .Q10H [facility] Rx#: [id number] Insulin Regular 100 unit 100 In Sodium Chloride 0.9% 100 ml @ Titrate IV .Q0M [facility] Rx#:[id number] Linezolid 600 mg In 300 Dextrose/Water 1 300ml. bag @ 150 mls/hr IVPB Q12H [facility] Rx#:[id number] Midazolam HCl 50 mg In 70.883 113.40 48 Sodium Chloride 0.9% 40 ml @ 6 MG/HR 6 mls/hr IV .Q8H20M [facility] Rx#:[id number] Mvi, Adult No.4 with Vit 1223 K 10 ml Trace (Conc-1Ml/ Dose) 1 ml Sodium Acetate 50 meq Potassium Chloride 50 meq Magnesium Sulfate gm 1 gm Calcium Gluconate 3 gm In Amino Acids 5 %/Dextrose 20 % 1 ,000 ml @ 65 mls/hr IV . BY DURATION [facility] Rx#: [id number] Norepinephrine 32 mg In 147.433 103.885 Sodium Chloride 0.9% 218 ml @ 0.5 MCG/KG/MIN 25. 547 mls/hr IV .Q9H48M [facility] Rx#:[id number] Sodium Acetate 50 meq 325 Potassium Chloride 50 meq Magnesium Sulfate gm 1 gm Calcium Gluconate 3 gm In Amino Acids 5 %/ Dextrose 20 % 1,000 ml @ 65 mls/hr IV .BY DURATION [facility] Rx#:[id number] Vasopressin 60 unit In 0 Sodium Chloride 0.9% 150 ml @ 0.04 UNITS/MIN 6.12 mls/hr IV .Q24H [facility] Rx#: [id number] Blood Product 0 Rc As-1 Unit 0 [id number] Output: Urine 230 795 100 Stool 500 500 Other: Voiding Method Indwelling Catheter Indwelling Catheter ABP, PAP, CO, CI - Last Documented Arterial Blood Pressure 90/54 - Labs CBC & Chem 7: 08/29/22 04:20 08/29/22 04:20 Labs: Abnormal Lab Results - Last 24 Hours (Table) 08/28/22 08/28/22 08/28/22 Range/Units 12:14 13:37 18:12 WBC (3.8-10.6) k/uL RBC (3.80-5.40) m/uL Hgb (11.4-16.0) gm/dL Hct (34.0-46.0) % MCHC (31.0-37.0) g/dL RDW (11.5-15.5) % Neutrophils # (Manual) (1.3-7.7) k/uL Nucleated RBCs (0-0) /100 WBC ABG pH (7.35-7.45) ABG pCO2 (35-45) mmHg ABG Total CO2 (19-24) mmol/L ABG O2 Saturation (94-97) % Sodium (137-145) mmol/L Chloride (98-107) mmol/L BUN (7-17) mg/dL Creatinine (0.52-1.04) mg/dL Glucose (74-99) mg/dL POC Glucose (mg/dL) 137 H 117 H 55 L (70-110) mg/dL Calcium (8.4-10.2) mg/dL AST (14-36) U/L Alkaline Phosphatase (38-126) U/L Total Protein (6.3-8.2) g/dL Albumin (3.5-5.0) g/dL Crossmatch 08/28/22 08/29/22 08/29/22 Range/Units 23:25 04:20 04:20 WBC 22.6 H (3.8-10.6) k/uL RBC 2.58 L (3.80-5.40) m/uL Hgb 6.5 L* (11.4-16.0) gm/dL Hct 22.3 L (34.0-46.0) % MCHC 29.2 L (31.0-37.0) g/dL RDW 18.9 H (11.5-15.5) % Neutrophils # (Manual) 20.50 H (1.3-7.7) k/uL Nucleated RBCs 8 H (0-0) /100 WBC ABG pH (7.35-7.45) ABG pCO2 (35-45) mmHg ABG Total CO2 (19-24) mmol/L ABG O2 Saturation (94-97) % Sodium 129 L (137-145) mmol/L Chloride 96 L (98-107) mmol/L BUN 80 H (7-17) mg/dL Creatinine 1.62 H (0.52-1.04) mg/dL Glucose 168 H (74-99) mg/dL POC Glucose (mg/dL) 122 H (70-110) mg/dL Calcium 6.9 L (8.4-10.2) mg/dL AST 40 H (14-36) U/L Alkaline Phosphatase 162 H (38-126) U/L Total Protein 4.0 L (6.3-8.2) g/dL Albumin 1.6 L (3.5-5.0) g/dL Crossmatch 08/29/22 08/29/22 08/29/22 Range/Units 05:24 05:55 05:56 WBC (3.8-10.6) k/uL RBC (3.80-5.40) m/uL Hgb (11.4-16.0) gm/dL Hct (34.0-46.0) % MCHC (31.0-37.0) g/dL RDW (11.5-15.5) % Neutrophils # (Manual) (1.3-7.7) k/uL Nucleated RBCs (0-0) /100 WBC ABG pH 7.32 L (7.35-7.45) ABG pCO2 46 H (35-45) mmHg ABG Total CO2 25 H (19-24) mmol/L ABG O2 Saturation 98.1 H (94-97) % Sodium (137-145) mmol/L Chloride (98-107) mmol/L BUN (7-17) mg/dL Creatinine (0.52-1.04) mg/dL Glucose (74-99) mg/dL POC Glucose (mg/dL) 186 H (70-110) mg/dL Calcium (8.4-10.2) mg/dL AST (14-36) U/L Alkaline Phosphatase (38-126) U/L Total Protein (6.3-8.2) g/dL Albumin (3.5-5.0) g/dL Crossmatch See Detail
[2022-08-29] MEDS: LORazepam Vial 25 MG in DEXTROSE 5% IN WATER 244 ML IV SCH ×8 (13:33→23:57)
--- NOTE | 2022-08-29 14:23 | P.PN ---
Subjective Progress Note Date: 08/29/22 H&P Date: 08/09/22 Chief Complaint: Shortness of breath,Altered mental statConstipation, syncope, hyperglycemia This is a pleasant 87-year-old female with past medical history of CAD, [place], stent placement, aortic stenosis ,chronic hypoxic respiratory failure,on 2 L nasal cannula ,Covid 06/22,COPD, former nicotine dependence, obstructive sleep apnea ,CVA/TIA, diabetes mellitus, hypertension, hyperlipidemia, hypothyroidism, recurrent UTIs,CKD III, urinary retention, anemia, bilateral peripheral neuropathy, gait dysfunction,utilizing walker, falls, morbid obesity-BMI 39.9 and multiple other medical issues brought in via ambulance, on BiPAP to the ER for change in level of consciousness, syncope, nausea, vomiting, hyperglycemia, constipation-on [place], shortness of breath, recently discharged from [facility] subacute rehab on 08/06/2022. Information being obtained from chart and daughter at bedside. Daughter reports they are unsure of her last bowel movement, possibly , 08/03. [facility] documented large bowel movement on 08/04 and 08/05. Reports yesterday blood sugars were running high in the 400s, patient developed nausea and vomiting, change in sensorium, passed out while on the toilet. Reports patient "coughs all the time, but has COPD", no knowledge of fevers, denies chills. Denies chest pain, palpitations, positive shortness of breath. Developed hypotension in the ER in addition to emesis, received fluid bolus .Chest x-ray reported right basilar infiltrate with persistent small right effusion, no overt failure. EKG reported sinus rhythm, troponin negative 1. KUB reported marked gastric distention, additional small bowel loops dilated, possibly retained debris within the rectum and sigmoid colon. 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 NG tube placed in the ER with 1200 MLS bilious output reported overnight. D-dimer elevated 4.73, CT angio chest reported no evidence of pulmonary embolism,more consolidation changes in the right lung base, rule out aspiration. ProBNP 426. UA reported many WBC clumps, 165 WBCs, large leukocytes, negative nitrates, culture pending. Afebrile, on admission temperature 96.7, currently 98.8. WBC 14.3. lactic acid 3.5, repeat level pending. Hemoglobin 10.2, platelets 4:15, a I's within normal limits, BUN 40, creatinine 1.5. BiPAP weaned off, currently requiring 6 L nasal cannula O2 to maintain O2 sats in the low 90s. 08/10/22 Continued to decline throughout the night requiring ICU admission, maintained on vasopressin, Levophed and bicarb drips. Received fluid boluses throughout the night. Lactic acid decreased to 2.1. Low urine output on Lasix IV push. BUN 81, creatinine 2.68. Hyperkalemic, received calcium, insulin, D50, sodium bicarbonate. Chest x-ray reporting stable bilateral lower lobe infiltrate and small effusion. Afebrile, T-max 99.7. Continues on Levaquin, WBC normalized today. Cefepime added to antibiotic regimen today. Preliminary Urine cultures reporting group D enterococcus 50-100,000 colonies and gram-negative bacilli 10 and 49,000 colonies. 07/03 Blood cultures reporting GNB. Hemoglobin 8.2, platelets 311. 08/11/2022 Vent dependent, FiO2 60%/+5 of PEEP. Chest x-ray reports stable, no change in bibasilar opacities, pleural effusion unchanged. Continues on the Levophed and vasopressin drips. Febrile to the night, T-max 102.4, WBC increased to 12.2. Lactic acid trended up during the night, received fluid boluses, currently at 3.2. Developed atrial fibrillation with RVR, bolused with amiodarone and currently on amiodarone drip. Urine culture reporting enterococcus faecalis and Pseudomonas aeruginosa.Films reviewed by general surgery, reporting sigmoid volvulus. Recommending conservative management. BUN 79, creatinine 2.74. Hyperglycemic. Hemoglobin 8.6, platelets 349. Anticoagulation remains on hold. 08/21/2022 remains vent dependent, FiO2 50%/+5 of PEEP. Maintained on high doses of levophed, vasopressin. Amiodarone and bicarb drips continue. Receiving IV albumin to be followed by Lasix. Worsening renal function. Staff reports no urine output 24 hours. Bicarb 16, BUN 76, creatinine 1.73. Repeat CT of abdomen and pelvis completed yesterday, reporting moderate volume pneumo peritoneum, suspected perforation of distal colonic bowel, extensive distal bowel pneumatosis. Surgery discussed findings with family, high risk for surgical intervention. Family decided against surgical intervention,but to continue with nonsurgical care. T-max 100.6. 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 Brain CT reported no acute intracranial process .EEG completed, results pending. 08/22/2022 vent dependent, 40% FiO2, +5 of PEEP. Staff reports patient desats quickly with turning. Chest x-ray reporting bibasilar atelectasis, consolidation, minimally increased, possible tiny right basilar pleural effusion. Continues on high doses of pressors, digits dusky. Maintained on bicarb drip. Telemetry atrial fibrillation, fast ventricular rate on amiodarone drip. Remains on antibiotics as per infectious disease.BUN 83, creatinine 1.79. T-max 102, WBC decreased, 16.5 08/23/2022 FiO2 50%/+5 of PEEP. Chest x-ray reported no significant change .Continues on pressor support. Maintained on amiodarone drip, heart rates currently in the 1 teens to 120s. Continues on daptomycin, Zerbexa and Eraxis.T-max 100.9, WBC 15.3. BUN 83, creatinine 2.13. WBC decreased to 15.3. Receiving IV albumin, Albumin currently 1.6. Ionized calcium 3.4, receiving supplementation. 08/24/2022 continues in A. fib, heart rates 110 to 130s on amiodarone drip. Seizure activity yesterday reported with facial twitching lasting approximately half an hour EEG performed-reported abnormal 2-1/2 hour EEG suggesting epileptiform focus involving midline occipital parietal region. Vimpat and Keppra doses increased. Continue to have seizure activity today, right-sided face twitching, trembling of arm reported, repeat EEG in progress. Versed drip initiated. Brain Ct pending. Maximized on both norepi and vasopressin. Digits dusky, declining comfort care at this time. Continues on bicarb drip. Remains vent dependent on FiO2 50%/+5 of PEEP. Now trach and PEG are being considered. 08/25/2022 maximized on pressors, levophed and vasopressin. Mechanical ventilator-dependent, FiO2 50%/+5 of PEEP. Chest x-ray reporting worsening bibasilar consolidation ,bilateral pneumonia. Family meeting via phone this morning with Dr. Minnie REYES, regarding poor prognosis, futile condition. Scheduled for tracheostomy and PEG-consent pending. Continues on amiodarone, bicarb drips. TPN. Continues to have seizure activity, on Versed drip, Dilantin added to med regimen. Afebrile, worsening WBC, 21.7, potassium 3, receiving supplementation. BUN 79, creatinine 1.87. Ionized calcium 3.4, supplemented. 08/28/2022 Remains vent dependent, FiO2 45%/+10 of PEEP status post tracheostomy 08/25. Nebulized bronchodilators, IV steroids. Receiving TPN/lipids. Requiring insulin drip for hyperglycemia, blood sugars currently ranging 160s to 170s.Ongoing seizures, continues on Versed drip, Dilantin, Keppra, Vimpat. EEG repeated yesterday, reported severely abnormal, suppression worsening-seen with severe anoxic or toxic metabolic encephalopathy, nonconvulsive generalized status epilepticus cannot be ruled out. Maintained on vasopressin, Levophed and Lasix drips. Antibiotics as per infectious disease. Afebrile, WBC 22.4. 08/29/2022 remains vent dependent, FiO2 45%/+10 of PEEP. Chest x-ray reporting bilateral infiltrates and pleural effusion, pneumonia versus CHF. PEG tube unable to be placed, please refer to the surgeon's note.Maintained on vasopressin, Levophed Lasix, Versed and Ativan drips. Repeat EEG pending. Continues on antibiotics of Eraxis, Zyvox and Zerbaxa. Afebrile, WBC 22.6. Hemoglobin 6.5, receiving one unit of packed RBCs. Platelets 255. Objective - Vital Signs Vital signs: Vital Signs Temp 97.4 F L 08/29/22 04:00 Pulse 90 08/29/22 12:31 Resp 30 H 08/29/22 07:00 BP 105/37 08/29/22 07:00 Pulse Ox 96 08/29/22 07:00 FiO2 45 08/29/22 12:00 Intake & Output 08/28/22 08/29/22 08/29/22 18:59 06:59 18:59 Intake Total 2837.316 858.285 71 Output Total 730 1295 100 Balance 2107.316 -436.715 -29 Weight 146 kg 146 kg Intake: IV 671 541 23 0.9% @ KVO 130 230 20 Anidulafungin 100 mg In 100 Sodium Chloride 0.9% 100 ml @ 84 mls/hr IVPB DAILY [facility] Rx#:[id number] Furosemide 100 mg In 110 110 Sodium Chloride 0.9% 90 ml @ 10 MG/HR 10 mls/hr IV .Q10H [facility] Rx#: [id number] Pressure Bag 36 36 3 Sodium Acetate 30 meq 195 65 Potassium Chloride 30 meq Magnesium Sulfate gm 0.5 gm Calcium Gluconate 2 gm In Amino Acids 5 %/ Dextrose 20 % 1,000 ml @ 65 mls/hr IV .BY DURATION [facility] Rx#:[id number] levETIRAcetam IV 1,000 mg 100 100 In Saline 1 100ml.bag @ 400 mls/hr IVPB Q12HR [facility] Rx#:[id number] Intake, IV Titration 2166.316 317.285 48 Amount Furosemide 100 mg In 100 Sodium Chloride 0.9% 90 ml @ 10 MG/HR 10 mls/hr IV .Q10H [facility] Rx#: [id number] Insulin Regular 100 unit 100 In Sodium Chloride 0.9% 100 ml @ Titrate IV .Q0M [facility] Rx#:[id number] Linezolid 600 mg In 300 Dextrose/Water 1 300ml. bag @ 150 mls/hr IVPB Q12H [facility] Rx#:[id number] Midazolam HCl 50 mg In 70.883 113.40 48 Sodium Chloride 0.9% 40 ml @ 6 MG/HR 6 mls/hr IV .Q8H20M [facility] Rx#:[id number] Mvi, Adult No.4 with Vit 1223 K 10 ml Trace (Conc-1Ml/ Dose) 1 ml Sodium Acetate 50 meq Potassium Chloride 50 meq Magnesium Sulfate gm 1 gm Calcium Gluconate 3 gm In Amino Acids 5 %/Dextrose 20 % 1 ,000 ml @ 65 mls/hr IV . BY DURATION [facility] Rx#: [id number] Norepinephrine 32 mg In 147.433 103.885 Sodium Chloride 0.9% 218 ml @ 0.5 MCG/KG/MIN 25. 547 mls/hr IV .Q9H48M [facility] Rx#:[id number] Sodium Acetate 50 meq 325 Potassium Chloride 50 meq Magnesium Sulfate gm 1 gm Calcium Gluconate 3 gm In Amino Acids 5 %/ Dextrose 20 % 1,000 ml @ 65 mls/hr IV .BY DURATION [facility] Rx#:[id number] Vasopressin 60 unit In 0 Sodium Chloride 0.9% 150 ml @ 0.04 UNITS/MIN 6.12 mls/hr IV .Q24H [facility] Rx#: [id number] Blood Product 0 Rc As-1 Unit 0 [id number] Output: Urine 230 795 100 Stool 500 500 Other: Voiding Method Indwelling Catheter Indwelling Catheter ABP, PAP, CO, CI - Last Documented Arterial Blood Pressure 90/54 - Exam GENERAL EXAM: on mechanical ventilation/tracheostomy. HEENT: Normocephalic. NECK: supple, unable to assess for JVD. LUNGS: Equal air entry with scattered rhonchi CV: S1 and S2 normal with no audible murmur, irregular rhythm. ABDOMEN:Distended, FMS present with stool SKIN: Edematous CENTRAL NERVOUS SYSTEM: Unable to assess, sedated on mechanical ventilation EXTREMITIES: Positive peripheral edema, dusky digits. - Labs CBC & Chem 7: 08/29/22 04:20 08/29/22 04:20 Labs: Abnormal Lab Results - Last 24 Hours (Table) 08/28/22 08/28/22 08/28/22 Range/Units 13:37 18:12 23:25 WBC (3.8-10.6) k/uL RBC (3.80-5.40) m/uL Hgb (11.4-16.0) gm/dL Hct (34.0-46.0) % MCHC (31.0-37.0) g/dL RDW (11.5-15.5) % Neutrophils # (Manual) (1.3-7.7) k/uL Nucleated RBCs (0-0) /100 WBC ABG pH (7.35-7.45) ABG pCO2 (35-45) mmHg ABG Total CO2 (19-24) mmol/L ABG O2 Saturation (94-97) % Sodium (137-145) mmol/L Chloride (98-107) mmol/L BUN (7-17) mg/dL Creatinine (0.52-1.04) mg/dL Glucose (74-99) mg/dL POC Glucose (mg/dL) 117 H 55 L 122 H (70-110) mg/dL Calcium (8.4-10.2) mg/dL AST (14-36) U/L Alkaline Phosphatase (38-126) U/L Total Protein (6.3-8.2) g/dL Albumin (3.5-5.0) g/dL Crossmatch 08/29/22 08/29/22 08/29/22 Range/Units 04:20 04:20 05:24 WBC 22.6 H (3.8-10.6) k/uL RBC 2.58 L (3.80-5.40) m/uL Hgb 6.5 L* (11.4-16.0) gm/dL Hct 22.3 L (34.0-46.0) % MCHC 29.2 L (31.0-37.0) g/dL RDW 18.9 H (11.5-15.5) % Neutrophils # (Manual) 20.50 H (1.3-7.7) k/uL Nucleated RBCs 8 H (0-0) /100 WBC ABG pH (7.35-7.45) ABG pCO2 (35-45) mmHg ABG Total CO2 (19-24) mmol/L ABG O2 Saturation (94-97) % Sodium 129 L (137-145) mmol/L Chloride 96 L (98-107) mmol/L BUN 80 H (7-17) mg/dL Creatinine 1.62 H (0.52-1.04) mg/dL Glucose 168 H (74-99) mg/dL POC Glucose (mg/dL) 186 H (70-110) mg/dL Calcium 6.9 L (8.4-10.2) mg/dL AST 40 H (14-36) U/L Alkaline Phosphatase 162 H (38-126) U/L Total Protein 4.0 L (6.3-8.2) g/dL Albumin 1.6 L (3.5-5.0) g/dL Crossmatch 08/29/22 08/29/22 08/29/22 Range/Units 05:55 05:56 12:20 WBC (3.8-10.6) k/uL RBC (3.80-5.40) m/uL Hgb (11.4-16.0) gm/dL Hct (34.0-46.0) % MCHC (31.0-37.0) g/dL RDW (11.5-15.5) % Neutrophils # (Manual) (1.3-7.7) k/uL Nucleated RBCs (0-0) /100 WBC ABG pH 7.32 L (7.35-7.45) ABG pCO2 46 H (35-45) mmHg ABG Total CO2 25 H (19-24) mmol/L ABG O2 Saturation 98.1 H (94-97) % Sodium (137-145) mmol/L Chloride (98-107) mmol/L BUN (7-17) mg/dL Creatinine (0.52-1.04) mg/dL Glucose (74-99) mg/dL POC Glucose (mg/dL) 187 H (70-110) mg/dL Calcium (8.4-10.2) mg/dL AST (14-36) U/L Alkaline Phosphatase (38-126) U/L Total Protein (6.3-8.2) g/dL Albumin (3.5-5.0) g/dL Crossmatch See Detail Assessment and Plan Assessment: Sepsis, septic shock secondary to acute enterococcus faecalis and Pseudomonas aeruginosa UTI, with acute VRE bacteremia ,abdominal sepsis. Systemic candidiasis. Hypotension, severe, secondary to the above, pressor dependent Seizure activity, workup in progress, neurology following Acute on chronic hypoxic respiratory failure, ventilator dependent, secondary to all the above, status post tracheostomy 08/25 Hyperammonium Chronic changes of the right lower lobe and small right pleural effusion as per pulmonary Acute on CKD III, secondary to ATN related to the above Persistent Atrial fibrillation with RVR, status post amiodarone drip, In a patient with history of chronic atrial fibrillation. Metabolic acidosis, on bicarb drip Abdominal pain, constipation, last bowel movement reported 08/05.Films reviewed by general surgery, reporting sigmoid volvulus. Continued clinical worsening; Probable perforated viscus with pneumoperitoneum reported per CT on 08/20/2022. Leukocytosis Diabetes mellitus, family reports hyperglycemic at home, controlled IP, A1c 6. Recent COVID-19 infection, 06/22 COPD, history of Valvular heart disease, moderate aortic stenosis, preserved LV function History of CHF, diastolic dysfunction Chronic anemia Generalized weakness, gait dysfunction, multiple falls recently reported, recently discharged from [facility] rehab. 08/06/22. History of CVA, TIA History of Hypertension Hyperlipidemia Hypothyroidism Morbid obesity, BMI 56.7 No code, no CPR, no reintubation Plan: Continue on current medication regime ,monitoring and symptomatic t reatment. Family meeting with spouse, daughter, Dr. Montoya and pulmonary - . Family updated , questions and concerns addressed. Spouse brought up removing patient from mechanical ventilation without morphine- terminal wean discussed.repeat EEG in progress with further recommendations to follow.ICU management as per legislative assistant. Antibiotics as per infectious disease. Prognosis remains guarded given multiple complex medical issues. The impression and plan of care has been dictated as directed. : I performed a history and examination of this patient, discussed the same with the dictator. I agree with the dictator's note ,documented as a scribe. Any additional findings or plans will be noted. Time with Patient: Greater than 30
[2022-08-29 14:40] LABS: Anisocytosis Slight; Basophils # (A) 0.1 k/uL (0-0.2); Basophils % (A) 0 %; Eosinophils % (A) 0 %; HCT 26.8 % (34.0-46.0); Hypochromasia Moderate; Lymphocytes # (A) 0.9 k/uL (1.0-4.8); Lymphocytes % (A) 4 %; MCH 27.9 pg (25.0-35.0); MCHC 31.7 g/dL (31.0-37.0); MCV 87.9 fL (80.0-100.0); Mean Platelet Volume 9.5; Monocytes # (A) 1.3 k/uL (0-1.0); Monocytes % (A) 6 %; Neutrophils # (A) 20.7 k/uL (1.3-7.7); Neutrophils % (A) 89 %; Platelet Count 238 k/uL (150-450); Poikilocytosis Moderate; RBC 3.05 m/uL (3.80-5.40); RDW 18.2 % (11.5-15.5); WBC 23.3 k/uL (3.8-10.6)
[2022-08-29 15:21] LABS: HGB 8.5 gm/dL (11.4-16.0)
[2022-08-29 17:57] LABS: Glucose,Whole Blood 268 mg/dL (70-110)
--- NOTE | 2022-08-29 19:37 | P.PN ---
Subjective Progress Note Date: 08/29/22 I am continuing seeing the patient and per the nurse patient continues on IV versed 9mg/hr and is maxed out on Versed. Her hemoglobin is 6.5 According to the nurse yesterday she was taken for a PEG tube but was not successful. Objective - Vital Signs Vital signs: Vital Signs Temp 97.4 F L 08/29/22 16:00 Pulse 96 08/29/22 17:30 Resp 30 H 08/29/22 17:30 BP 105/37 08/29/22 07:00 Pulse Ox 96 08/29/22 17:30 FiO2 45 08/29/22 16:00 Intake & Output 08/29/22 08/29/22 08/30/22 06:59 18:59 06:59 Intake Total 032.122 8791.554 Output Total 1295 1075 Balance -302.186 4454.554 Weight 146 kg 146 kg Intake: IV 541 2028 0.9% @ KVO 230 390 Anidulafungin 100 mg In 100 Sodium Chloride 0.9% 100 ml @ 84 mls/hr IVPB DAILY [facility] Rx#:[id number] Ceftolozane/Tazobactam 0. 100 75 gm In Sodium Chloride 0.9% 100 ml @ 100 mls/hr IV Q8HR [facility] Rx#:[id number] Fat Emulsion 20% 250 ml 105 In Empty Bag 1 bag @ 21 mls/hr IV TuFr [facility] Rx#: [id number] Furosemide 100 mg In 110 100 Sodium Chloride 0.9% 90 ml @ 10 MG/HR 10 mls/hr IV .Q10H [facility] Rx#: [id number] Lacosamide IV 150 mg In 100 Sodium Chloride 0.9% 50 ml @ 100 mls/hr IVPB BID [facility] Rx#:[id number] Linezolid 600 mg In 300 Dextrose/Water 1 300ml. bag @ 150 mls/hr IVPB Q12H [facility] Rx#:[id number] [facility]vi, Adult No.4 with Vit 650 K 10 ml Trace (Conc-1Ml/ Dose) 1 ml Sodium Acetate 50 meq Potassium Chloride 50 meq Magnesium Sulfate gm 1 gm Calcium Gluconate 3 gm In Amino Acids 5 %/Dextrose 20 % 1 ,000 ml @ 65 mls/hr IV . BY DURATION [facility] Rx#: [id number] Phenytoin Sodium Inj 300 50 mg In Sodium Chloride 0.9 % 50 ml @ 80 mls/hr IVPB Q12H [facility] Rx#:[id number] Pressure Bag 36 33 Sodium Acetate 30 meq 65 Potassium Chloride 30 meq Magnesium Sulfate gm 0.5 gm Calcium Gluconate 2 gm In Amino Acids 5 %/ Dextrose 20 % 1,000 ml @ 65 mls/hr IV .BY DURATION [facility] Rx#:[id number] levETIRAcetam IV 1,000 mg 100 100 In Saline 1 100ml.bag @ 400 mls/hr IVPB Q12HR [facility] Rx#:[id number] Intake, IV Titration 317.285 469.554 Amount Furosemide 100 mg In 100 85 Sodium Chloride 0.9% 90 ml @ 10 MG/HR 10 mls/hr IV .Q10H [facility] Rx#: [id number] LORazepam Vial 25 mg In 243.499 Dextrose 5% in Water 244 ml @ Per Protocol IV .Q0M [facility] Rx#:[id number] Midazolam HCl 50 mg In 113.40 98 Sodium Chloride 0.9% 40 ml @ 6 MG/HR 6 mls/hr IV .Q8H20M [facility] Rx#:[id number] Norepinephrine 32 mg In 103.885 43.055 Sodium Chloride 0.9% 218 ml @ 0.5 MCG/KG/MIN 25. 547 mls/hr IV .Q9H48M [facility] Rx#:[id number] Blood Product 0 Rc As-1 Unit 0 [id number] Output: Urine 795 1075 Stool 500 Other: Voiding Method Indwelling Catheter Indwelling Catheter ABP, PAP, CO, CI - Last Documented Arterial Blood Pressure 114/48 - Exam GENERAL: The patient is lying in bed and does not appear in acute distress. LUNG:Trach on ventilator. NEUROLOGICAL: Is on Versed 9mg/hr. Exam is very limited. Higher mental function: The patient is comatose. Is GCS 3( E1, VT1, M1). Cranial nerves: I had to manually open her eyes. Primary gaze is midline. The pupils are round, equal and pinpoint. No facial weakness. Not breathing over vent but is set at high setting 30 AC. Motor: The strength is limited but no withdrawal to painful stimuli. No spontanous movement. Sensation: Unable to assess light touch. - Labs CBC & Chem 7: 08/29/22 13:29 08/29/22 04:20 Labs: Abnormal Lab Results - Last 24 Hours (Table) 08/28/22 08/29/22 08/29/22 Range/Units 23:25 04:20 04:20 WBC 22.6 H (3.8-10.6) k/uL RBC 2.58 L (3.80-5.40) m/uL Hgb 6.5 L* (11.4-16.0) gm/dL Hct 22.3 L (34.0-46.0) % MCHC 29.2 L (31.0-37.0) g/dL RDW 18.9 H (11.5-15.5) % Neutrophils # (1.3-7.7) k/uL Neutrophils # (Manual) 20.50 H (1.3-7.7) k/uL Lymphocytes # (1.0-4.8) k/uL Monocytes # (0-1.0) k/uL Nucleated RBCs 8 H (0-0) /100 WBC ABG pH (7.35-7.45) ABG pCO2 (35-45) mmHg ABG Total CO2 (19-24) mmol/L ABG O2 Saturation (94-97) % Sodium 129 L (137-145) mmol/L Chloride 96 L (98-107) mmol/L BUN 80 H (7-17) mg/dL Creatinine 1.62 H (0.52-1.04) mg/dL Glucose 168 H (74-99) mg/dL POC Glucose (mg/dL) 122 H (70-110) mg/dL Calcium 6.9 L (8.4-10.2) mg/dL AST 40 H (14-36) U/L Alkaline Phosphatase 162 H (38-126) U/L Total Protein 4.0 L (6.3-8.2) g/dL Albumin 1.6 L (3.5-5.0) g/dL Crossmatch 08/29/22 08/29/22 08/29/22 Range/Units 05:24 05:55 05:56 WBC (3.8-10.6) k/uL RBC (3.80-5.40) m/uL Hgb (11.4-16.0) gm/dL Hct (34.0-46.0) % MCHC (31.0-37.0) g/dL RDW (11.5-15.5) % Neutrophils # (1.3-7.7) k/uL Neutrophils # (Manual) (1.3-7.7) k/uL Lymphocytes # (1.0-4.8) k/uL Monocytes # (0-1.0) k/uL Nucleated RBCs (0-0) /100 WBC ABG pH 7.32 L (7.35-7.45) ABG pCO2 46 H (35-45) mmHg ABG Total CO2 25 H (19-24) mmol/L ABG O2 Saturation 98.1 H (94-97) % Sodium (137-145) mmol/L Chloride (98-107) mmol/L BUN (7-17) mg/dL Creatinine (0.52-1.04) mg/dL Glucose (74-99) mg/dL POC Glucose (mg/dL) 186 H (70-110) mg/dL Calcium (8.4-10.2) mg/dL AST (14-36) U/L Alkaline Phosphatase (38-126) U/L Total Protein (6.3-8.2) g/dL Albumin (3.5-5.0) g/dL Crossmatch See Detail 08/29/22 08/29/22 08/29/22 Range/Units 12:20 13:29 17:56 WBC 23.3 H (3.8-10.6) k/uL RBC 3.05 L (3.80-5.40) m/uL Hgb 8.5 L D (11.4-16.0) gm/dL Hct 26.8 L (34.0-46.0) % MCHC (31.0-37.0) g/dL RDW 18.2 H (11.5-15.5) % Neutrophils # 20.7 H (1.3-7.7) k/uL Neutrophils # (Manual) (1.3-7.7) k/uL Lymphocytes # 0.9 L (1.0-4.8) k/uL Monocytes # 1.3 H (0-1.0) k/uL Nucleated RBCs (0-0) /100 WBC ABG pH (7.35-7.45) ABG pCO2 (35-45) mmHg ABG Total CO2 (19-24) mmol/L ABG O2 Saturation (94-97) % Sodium (137-145) mmol/L Chloride (98-107) mmol/L BUN (7-17) mg/dL Creatinine (0.52-1.04) mg/dL Glucose (74-99) mg/dL POC Glucose (mg/dL) 187 H 268 H (70-110) mg/dL Calcium (8.4-10.2) mg/dL AST (14-36) U/L Alkaline Phosphatase (38-126) U/L Total Protein (6.3-8.2) g/dL Albumin (3.5-5.0) g/dL Crossmatch Assessment and Plan Assessment: * Altered mental status multifactorial as mentioned below. Patient seizure and it seems partial status, septic encephalopathy, medication induced (versed). Also has some component of metabolic encephalopathy and hepatic encephalopat hy. * Abnormal prolonged 2.5 hours EEG, with evidence of runs of 1 Hz LPDs plus there was lateralized periodic discharges, sharp and slow and poly-sharp and slow waves over the left parietal region with spread more anteriorly. There are also some discharges semi-periodic LPDs over the right posterior quadrants. Ictal/interictal continuum---on Versed IV and 3 other antiepileptic drugs (keppra, Vimpat and Dilantin) * Probable perforated viscus with pneumoperitoneum. * Septicemia, with leukocytosis and blood culture persistently positive with enterococcus faecium. Blood cultures positive as of 08/23/2022. White cells slightly worse today 21,000. * Hepatic encephalopathy with initial elevated ammonia 214, repeat 210, then latest 171. * Septic shock requiring high-dose pressors and seems has urinary tract infection with urine culture positive for Enterococcus faecalis and Pseudomonas aeruginosa as well as systemic candidiasis * Atrial fibrillation on eliquis (which has hx of afib) , currently on hold. * Acute on chronic hypoxemic respiratory failure secondary to diastolic congestive heart failure requiring intubation mechanical ventilation * Acute on chronic kidney disease * History of TIAs/stroke * History of coronary artery disease with stent * Hypertension * Hyperlipidemia * Diabetes mellitus * Anemia * Hypocalcemia Plan: * Clinically it appears partial status has resolved. No focal twitches noticed at this time. * Patient had multiple 2.5 hour EEG and most recent STAT EEG on 08/27/22: revealed severe abnormal EEG with burst suppressed pattern. The suppression lasting between 40-60 seconds, with the maximal lasting for 87 seconds. The bursts lasting for around 5-12 seconds, consisting of high amplitude spike/polyspike's or PLEDs mainly involving bilateral parietal region, left more than right. Frequently extending to the frontal regions as well. Overall this EEG is severely abnormal, worse as compared to EEG from 08/24. Overall suggestive of severe encephalopathy as can be seen with an anoxic, toxic metabolic or epileptic encephalopathy. 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 * Patient already on high dose Vimpat 150 mg twice a day, Keppra 1000 mg twice a day (both of them adjusted for current renal functions). On Versed 9 mg per hour. * I ordered a 2.5 hour EEG for today and patient continues to have burst of discharges intermixed with suppression. I have decided to place patient on Ativan drip in addition with Versed to attempt full suppression for about 24 hours then will remove the Ativan drip tomorrow and then wean patient off Versed and repeat EEG tomorrow to assess her condition. * Patient also on Dilantin. Her Dilantin level 6.4 this morning. Maintenance dose increased to 300 mg twice a day. Cannot give Depakote because of hyperammonemia. Her Keppra level on 08/26/22: 68.9 (normal is 3-60). * Continue Ativan 1-2 mg every 4 hours when necessary seizure. * Repeat CT head 08/24/2022, which did not reveal any acute intracranial process. However there is possible bilateral mastoiditis and middle ear infections spread. Correlate clinically. Patchy paranasal sinus disease. I personally reviewed CT head, and there is evidence of air-fluid level in the left maxillary sinus. Agree with evidence of possible bilateral mastoiditis and fluid in the middle ear. I discussed with PCP about possibility of lumbar puncture. ID is also on board. Patient currently on Eraxis, Zerbaxa, daptomycin. Per ID, patient is already covered well for meningitis. * Patient's initial Ammonia was 214. Latest was 171. Patient on lactulose. * CT abdomen revealed possibility of perforated viscus. Surgery on board. Patient was considered not a candidate for surgery because of hemodynamic instability. * Patient is on high dose pressors * Hypocalcemia, Recommend appropriate treatment as per IM and critical care. * We'll defer the rest of medical management to primary and ICU team * The patient condition is very critical. Prognosis appears very poor at this time. * I had length discussion with the patient's and daughter who are at bedside. I also discussed with primary team. Also discussed with nurse. Of note during family discussion, notified me that nobody is updating him regarding the patient's condition. Then later he notified me that the primary team has updated him yesterday that the condition seems poor and he notified me that I was the one that spoke with primary and that is why he spoke with patient's . I notified him, that I did not even speak to the primary team yesterday. Also the biomedical repair technician notified me that Dr. Abrams has updated the last week that condition appears poor as well. Upon notifying the patient that we would like to get an EEG to assess her seizure activity, he stated that he does not want the paste on her head and was reluctant on getting the EEG initially and then he had to be persuaded to pursue the test for the patient's own benefit to assess her seizure activity. biomedical repair technician notified me that multiple and last week he was also reluctant on EEG because of the paste of EEG. Total I have spoken with the patient's three times today and two of times, he was accompanied with his daughter. Will continue to follow I have spent a total of 40 minutes with patient's care today. Time with Patient: Greater than 30
[2022-08-29] MEDS: VASOPRESSIN 60 UNIT in SODIUM CHLORIDE 0.9% 150 ML IV SCH (20:07)
[2022-08-30 00:07] LABS: Glucose,Whole Blood 268 mg/dL (70-110)
[2022-08-30] MEDS: methylPREDNISolone SOD SUCCI 40 MG/ML 1 ML VIAL IV SCH ×3 (00:13→16:57)
[2022-08-30] MEDS: CEFTOLOZANE/TAZOBACTAM 0.75 GM in SODIUM CHLORIDE 0.9% 100 ML IV SCH ×3 (00:14→16:56)
[2022-08-30] MEDS: INSULIN ASPART (NovoLOG) 100 UNIT/ML VIAL SQ SCH ×5 (00:14→20:30)
[2022-08-30] MEDS: 1: MVI, ADULT NO.4 WITH VIT K 10 ML, TRACE (CONC-1ML/DOSE) 1 ML, SODIUM ACETATE 50 MEQ, IV SCH ×30 (00:22→18:36)
[2022-08-30] MEDS: PHENYTOIN SODIUM INJ 300 MG in SODIUM CHLORIDE 0.9% 50 ML IVPB SCH ×2 (00:25→13:21)
[2022-08-30] MEDS: LINEZOLID 600 MG in DEXTROSE/WATER 1 300ML.BAG IVPB SCH ×2 (02:28→12:37)
[2022-08-30] MEDS: MIDAZOLAM HCL 50 MG in SODIUM CHLORIDE 0.9% 40 ML IV SCH ×2 (03:04→07:02)
[2022-08-30] MEDS: NOREPINEPHRINE 32 MG in SODIUM CHLORIDE 0.9% 218 ML IV SCH ×3 (04:46→19:44)
--- NOTE | 2022-08-30 04:54 | EEG ---
ELECTROENCEPHALOGRAM REPORT ELECTROENCEPHALOGRAM (EEG): TECHNIQUE: This is a report from a continuous/long-term 18-channel digital video EEG performed using the 10/20 international electrode placement system. HISTORY: Respiratory failure, seizures. CURRENT MEDICATIONS: 1. Keppra. 2. Vimpat. 3. Dilantin. 4. Versed. 5. Ativan. FINDINGS: Recording start time: 08/29/2022 at 12:02 p.m. Recording end time: 08/29/2022 at 1552. EVENTS: During this prolonged continuous video EEG, numerous electrographic seizures were recorded, only a partial listing is provided below. 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 BACKGROUND: A sustained posterior dominant rhythm was not seen. ACTIVATION: Hyperventilation: Not performed. Photic stimulation: Not performed. Sleep: Distinctive sleep stages not seen. Please note that during the course of the study, the patient was started on Ativan at 13:45:10, the dose was increased as the study continued. ABNORMALITIES: 1. Initially, frequent electrographic seizures were recorded with the following pattern of electrical evolution. Two hertz sharp and slow and poly sharp and slow waves were seen of high amplitude with maximal amplitude over the left posterior quadrants, T3, T5, and spread more anteriorly. These discharges then evolved to 1 hertz LPDs plus, higher amplitude spike and slow wave discharges and poly sharp and slow discharges. These discharges did vary in their appearance hence these are called LPDs plus. At the end of this was a period of suppression. An example of such an electrographic seizure begins with 2 hertz discharges at 12:25:49 evolving to 1 hertz at 12:26:15, followed by diffuse suppression at 12:26:42. Another example of an electrographic seizure with the same evolution pattern begins with 2 hertz discharges at 12:27:24 evolving to 0.5 to 1 hertz discharges at 12:28:01 ending with suppression at 12:28:28. 2. An Ativan drip was started at 13:45:10. As the recording continued, long runs of LPDs plus were seen on the left posterior quadrants. These runs lasted more than 10 seconds and can be considered electrographic seizures. Examples of these include, but are not limited to, 14:26:49 to 14:27:28, 14:29:18 to 14:29:45. 3. In this recording, a burst suppression pattern was seen. The bursts consisted of LPDs plus, that is poly sharp and slow with spike and slow waves with maximal amplitude over the left posterior quadrants with volume conduction more anteriorly to the left hemisphere and to the right posterior quadrants, in 40 to 50 seconds bursts, these could be considered electrographic seizures. These were by periods of suppression lasting up to 2 to 3 minutes. 4. In summary, near the end of this event, a burst suppression pattern was seen, but the bursts themselves were long enough to be defined as electrographic seizures. Also note that these discharges referred to the LPD discharges were maximal as mentioned above over the left posterior quadrants, T3, T5, O1 which spread more anteriorly, so with volume conduction also to the right posterior quadrants. Some LPDs were also seen over the right posterior quadrants. 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 An additional epileptiform foci more anteriorly in the left hemisphere and/or an extended foci involving the right posterior quadrants are not necessarily included. A burst suppression pattern indicates severe diffuse cerebral dysfunction as may be seen in anoxic or toxic encephalopathy. These findings were called to the consulting neurologist at 5:40 p.m. on 08/29/2022. MMODL / IJN: [id number] /
[2022-08-30 05:12] LABS: Anisocytosis Slight; Basophils # (A) 0.1 k/uL (0-0.2); Basophils % (A) 1 %; Eosinophils % (A) 0 %; HCT 26.3 % (34.0-46.0); HGB 8.1 gm/dL (11.4-16.0); Hypochromasia Marked; Lymphocytes # (A) 0.6 k/uL (1.0-4.8); Lymphocytes % (A) 3 %; MCH 27.3 pg (25.0-35.0); MCHC 30.8 g/dL (31.0-37.0); MCV 88.6 fL (80.0-100.0); Mean Platelet Volume 10.2; Monocytes # (A) 1.1 k/uL (0-1.0); Monocytes % (A) 6 %; Neutrophils # (A) 18.6 k/uL (1.3-7.7); Neutrophils % (A) 90 %; Platelet Count 221 k/uL (150-450); Poikilocytosis Moderate; RBC 2.96 m/uL (3.80-5.40); RDW 18.6 % (11.5-15.5); WBC 20.7 k/uL (3.8-10.6)
[2022-08-30 05:22] LABS: Albumin 1.6 g/dL (3.5-5.0); Calcium 6.9 mg/dL (8.4-10.2); Magnesium 2.1 mg/dL (1.6-2.3); Phosphorus 3.3 mg/dL (2.5-4.5); Total Bilirubin 0.2 mg/dL (0.2-1.3); Total Protein 4.1 g/dL (6.3-8.2)
[2022-08-30 05:45] LABS: ABG Base Excess -3.8 mmol/L; ABG HCO3 22 mmol/L (21-25); ABG Oxygen Saturation 97.1 % (94-97); ABG PCO2 44 mmHg (35-45); ABG PH 7.31 (7.35-7.45); ABG PO2 87 mmHg (83-108); ABG TCO2 24 mmol/L (19-24); Allen Test Performed? Yes
[2022-08-30] MEDS: LORazepam Vial 25 MG in DEXTROSE 5% IN WATER 244 ML IV SCH ×4 (06:38→10:55)
[2022-08-30] MEDS: FUROSEMIDE 100 MG in SODIUM CHLORIDE 0.9% 90 ML IV SCH ×2 (07:01→16:56)
[2022-08-30 08:12] LABS: Glucose,Whole Blood 270 mg/dL (70-110)
[2022-08-30] MEDS: IPRATROPIUM 0.5 MG/2.5 ML NEBU INHALATION SCH ×4 (08:19→20:26)
[2022-08-30] MEDS: ALBUTEROL NEBULIZED 2.5 MG/3 ML INHALATION SCH ×4 (08:19→20:26)
[2022-08-30] MEDS: FORMOTEROL FUMARATE 20 MCG/2 ML NEBU INHALATION SCH ×2 (08:19→20:26)
[2022-08-30] MEDS: BUDESONIDE 1 MG/2 ML NEBU INHALATION SCH ×2 (08:19→20:26)
[2022-08-30] MEDS: levETIRAcetam IV 1,000 MG in SALINE 1 100ML.BAG IVPB SCH ×2 (08:28→20:31)
[2022-08-30] MEDS: PANTOPRAZOLE 40 MG/10 ML VIAL IVP SCH (08:28)
[2022-08-30] MEDS: AMIODARONE 200 MG TAB PO SCH ×2 (08:47→20:30)
[2022-08-30] MEDS: TAMSULOSIN 0.4 MG CAP.ER.24H PO SCH (08:47)
[2022-08-30] MEDS: LACTULOSE 20 GM/30 ML CUP PO SCH ×4 (08:47→20:33)
--- NOTE | 2022-08-30 08:47 | XR ---
EXAMINATION TYPE: XR chest 1V portable DATE OF EXAM: 08/30/2022 COMPARISON: 08/29/2022 HISTORY: Cough TECHNIQUE: Single frontal view of the chest is obtained. FINDINGS: Bilateral lower lobe consolidation and pleural effusion. Postoperative changes overlying t he cervical spine. Tracheostomy tube seen with the tip overlying the proximal thoracic inlet. Left-si ded central line stable. Diffuse interstitial pattern. Hypertrophic and degenerative changes of the s pine. NG tube stable. Left humeral head is somewhat displaced relative to the glenoid. IMPRESSION: 1. Bilateral infiltrate and pleural effusion stable. Correlate clinically to assess for pneumonia, ot herwise consider CHF 2. Left humeral head is somewhat displaced from the glenoid which could be positional correlate clini caleb to exclude subluxation.
[2022-08-30] MEDS: polyethylene glycoL 3350 17 GM POWD.PACK PO SCH ×2 (08:48→20:31)
[2022-08-30] MEDS: metOLazone 5 MG TAB PO SCH ×2 (08:48→20:31)
[2022-08-30] MEDS: ANIDULAFUNGIN 100 MG in SODIUM CHLORIDE 0.9% 100 ML IVPB SCH (08:49)
[2022-08-30] MEDS: LACOSAMIDE IV 150 MG in SODIUM CHLORIDE 0.9% 50 ML IVPB SCH ×2 (08:52→20:31)
--- NOTE | 2022-08-30 10:48 | P.PN ---
Subjective Patient is seen in follow-up for acute kidney injury. Renal function stable. Urine output 50-100 mL per hour. Intubated. Currently on Levophed and vasopressin. On Lasix drip. Receiving TPN. Also on Versed and Ativan drip for seizures. Vital signs - on vasopressor support. General: Resting in bed. HEENT: Intubated. LUNGS: Breath sounds decreased. HEART: Regular rate and rhythm. ABDOMEN: Distention noted. EXTREMITITES: 2+ edema. Objective - Vital Signs Vital signs: Vital Signs Temp 97.1 F L 08/30/22 04:00 Pulse 88 08/30/22 08:45 Resp 27 H 08/30/22 08:45 BP 99/41 08/30/22 06:15 Pulse Ox 95 08/30/22 07:30 FiO2 45 08/30/22 07:55 Intake & Output 08/29/22 08/30/22 08/30/22 18:59 06:59 18:59 Intake Total 2656.554 3411.475 232.033 Output Total 1150 665 85 Balance 2017.817 3587.475 147.033 Weight 146 kg 148.5 kg Intake: IV 2187 1291 98 0.9% @ KVO 350 360 30 Anidulafungin 100 mg In 100 Sodium Chloride 0.9% 100 ml @ 84 mls/hr IVPB DAILY [facility] Rx#:[id number] Ceftolozane/Tazobactam 0. 200 75 gm In Sodium Chloride 0.9% 100 ml @ 100 mls/hr IV Q8HR [facility] Rx#:[id number] Fat Emulsion 20% 250 ml 126 105 In Empty Bag 1 bag @ 21 mls/hr IV TuFr [facility] Rx#: [id number] Furosemide 100 mg In 110 10 Sodium Chloride 0.9% 90 ml @ 10 MG/HR 10 mls/hr IV .Q10H [facility] Rx#: [id number] Lacosamide IV 150 mg In 100 Sodium Chloride 0.9% 50 ml @ 100 mls/hr IVPB BID [facility] Rx#:[id number] Linezolid 600 mg In 300 Dextrose/Water 1 300ml. bag @ 150 mls/hr IVPB Q12H [facility] Rx#:[id number] [facility], Adult No.4 with Vit 715 780 65 K 10 ml Trace (Conc-1Ml/ Dose) 1 ml Sodium Acetate 50 meq Potassium Chloride 50 meq Magnesium Sulfate gm 1 gm Calcium Gluconate 3 gm In Amino Acids 5 %/Dextrose 20 % 1 ,000 ml @ 65 mls/hr IV . BY DURATION [facility] Rx#: [id number] Phenytoin Sodium Inj 300 50 mg In Sodium Chloride 0.9 % 50 ml @ 80 mls/hr IVPB Q12H [facility] Rx#:[id number] Pressure Bag 36 36 3 levETIRAcetam IV 1,000 mg 100 In Saline 1 100ml.bag @ 400 mls/hr IVPB Q12HR [facility] Rx#:[id number] Intake, IV Titration 514.800 6299.475 134.033 Amount Furosemide 100 mg In 85 74.5 98.333 Sodium Chloride 0.9% 90 ml @ 10 MG/HR 10 mls/hr IV .Q10H [facility] Rx#: [id number] LORazepam Vial 25 mg In 243.499 750 Dextrose 5% in Water 244 ml @ Per Protocol IV .Q0M [facility] Rx#:[id number] Midazolam HCl 50 mg In 98 84.95 35.7 Sodium Chloride 0.9% 40 ml @ 6 MG/HR 6 mls/hr IV .Q8H20M [facility] Rx#:[id number] [facility], Adult No.4 with Vit 1093 K 10 ml Trace (Conc-1Ml/ Dose) 1 ml Sodium Acetate 50 meq Potassium Chloride 50 meq Magnesium Sulfate gm 1 gm Calcium Gluconate 3 gm In Amino Acids 5 %/Dextrose 20 % 1 ,000 ml @ 65 mls/hr IV . BY DURATION [facility] Rx#: [id number] Norepinephrine 32 mg In 43.055 118.025 Sodium Chloride 0.9% 218 ml @ 0.5 MCG/KG/MIN 25. 547 mls/hr IV .Q9H48M [facility] Rx#:[id number] Blood Product 0 Rc As-1 Unit 0 [id number] Output: Urine 1150 665 85 Other: Voiding Method Indwelling Catheter Indwelling Catheter ABP, PAP, CO, CI - Last Documented Arterial Blood Pressure 107/37 - Labs CBC & Chem 7: 08/30/22 05:00 08/30/22 05:00 Labs: Abnormal Lab Results - Last 24 Hours (Table) 08/29/22 08/29/22 08/29/22 Range/Units 12:20 13:29 17:56 WBC 23.3 H (3.8-10.6) k/uL RBC 3.05 L (3.80-5.40) m/uL Hgb 8.5 L D (11.4-16.0) gm/dL Hct 26.8 L (34.0-46.0) % MCHC (31.0-37.0) g/dL RDW 18.2 H (11.5-15.5) % Neutrophils # 20.7 H (1.3-7.7) k/uL Lymphocytes # 0.9 L (1.0-4.8) k/uL Monocytes # 1.3 H (0-1.0) k/uL ABG pH (7.35-7.45) ABG O2 Saturation (94-97) % Sodium (137-145) mmol/L Chloride (98-107) mmol/L Carbon Dioxide (22-30) mmol/L BUN (7-17) mg/dL Creatinine (0.52-1.04) mg/dL Glucose (74-99) mg/dL POC Glucose (mg/dL) 187 H 268 H (70-110) mg/dL Calcium (8.4-10.2) mg/dL Alkaline Phosphatase (38-126) U/L Ammonia (<30) umol/L Total Protein (6.3-8.2) g/dL Albumin (3.5-5.0) g/dL 08/30/22 08/30/22 08/30/22 Range/Units 00:04 05:00 05:00 WBC 20.7 H (3.8-10.6) k/uL RBC 2.96 L (3.80-5.40) m/uL Hgb 8.1 L (11.4-16.0) gm/dL Hct 26.3 L (34.0-46.0) % MCHC 30.8 L (31.0-37.0) g/dL RDW 18.6 H (11.5-15.5) % Neutrophils # 18.6 H (1.3-7.7) k/uL Lymphocytes # 0.6 L (1.0-4.8) k/uL Monocytes # 1.1 H (0-1.0) k/uL ABG pH (7.35-7.45) ABG O2 Saturation (94-97) % Sodium 126 L (137-145) mmol/L Chloride 93 L (98-107) mmol/L Carbon Dioxide 21 L (22-30) mmol/L BUN 81 H (7-17) mg/dL Creatinine 1.62 H (0.52-1.04) mg/dL Glucose 293 H (74-99) mg/dL POC Glucose (mg/dL) 268 H (70-110) mg/dL Calcium 6.9 L (8.4-10.2) mg/dL Alkaline Phosphatase 161 H (38-126) U/L Ammonia (<30) umol/L Total Protein 4.1 L (6.3-8.2) g/dL Albumin 1.6 L (3.5-5.0) g/dL 08/30/22 08/30/22 08/30/22 Range/Units 05:44 08:09 09:12 WBC (3.8-10.6) k/uL RBC (3.80-5.40) m/uL Hgb (11.4-16.0) gm/dL Hct (34.0-46.0) % MCHC (31.0-37.0) g/dL RDW (11.5-15.5) % Neutrophils # (1.3-7.7) k/uL Lymphocytes # (1.0-4.8) k/uL Monocytes # (0-1.0) k/uL ABG pH 7.31 L (7.35-7.45) ABG O2 Saturation 97.1 H (94-97) % Sodium (137-145) mmol/L Chloride (98-107) mmol/L Carbon Dioxide (22-30) mmol/L BUN (7-17) mg/dL Creatinine (0.52-1.04) mg/dL Glucose (74-99) mg/dL POC Glucose (mg/dL) 270 H (70-110) mg/dL Calcium (8.4-10.2) mg/dL Alkaline Phosphatase (38-126) U/L Ammonia 50 H (<30) umol/L Total Protein (6.3-8.2) g/dL Albumin (3.5-5.0) g/dL Assessment and Plan Plan: Assessment: 1. Acute kidney injury secondary to ATN secondary to septic shock. Baseline creatinine near 0.8 from June 2022 - peaked at 2.77 this admission - stable at 1.62 today. Urine output 50-100 mL an hour. No hydronephrosis noted on CAT scan. 2. Septic shock secondary to UTI, fungemia and bacteremia. CAT scan done in 08/20/2022 showed pneumoperitoneum. On antibiotics/antifungal and vasopressor support. 3. Metabolic acidosis secondary to acute kidney injury. s/p bicarb drip. 4. Hypokalemia from poor intake and diuresis. Also intracellular shifting from IV bicarb. Being replaced. 5. Acute hypoxic respiratory failure. 6. A. fib with RVR. On po amiodarone. Cardiology following. 8. Hyponatremia secondary to acute kidney injury. Hypervolemic. 9. Hypocalcemia secondary to acute kidney injury. Improved. On vitamin D. 10. Severe volume overload. Plan: Maintain Lasix drip. Maintain TPN. Wean FiO2 and vasopressors. Avoid nephrotoxins. Continue to monitor renal function and urine output. Prognosis guarded. The family wishes to continue with aggressive therapy, will need to consider renal replacement therapy due to volume overload.
--- NOTE | 2022-08-30 11:00 | P.PN ---
Subjective Progress Note Date: 08/30/22 Principal diagnosis: Respiratory failure. Reevaluated today on 08/25/2022, patient remains in the ICU, intubated and mechanically ventilated, he is on assist control rate of 28th of volume 400 FiO2 50% PEEP of 5 ABG showed a pO2 of 91 pCO2 42 pH of 7.28 patient is scheduled to undergo tracheostomy and PEG tube placement today, hence no changes were made in her present ventilator settings. Patient is still maximized on pressors including norepinephrine at 0.5 mcg/kg/m vasopressin at 0.04 units per minute she is also on amiodarone 1 mg/m TPN at 50 mL/h. Sodium bicarb 3 A in D5W at 75 mL per hour she is also on Versed 6 mg per hour. Chest x-ray shows worsening in her bilateral pneumonia. WBC count is getting worse today 21.7 hemoglobin is 7.3, basic metabolic profile showed slightly low potassium of 3.0, BUN is 79 creatinine 1.87, basically unchanged in the last couple of days. Serum albumin is 1.7. Ionized calcium is 5.2, patient received calcium earlier today Reevaluated today on 08/26/2022, patient remains in the ICU, intubated mechanically ventilated, she is now on assist control rate of 30 tidal volume 400 FiO2 45% PEEP is at 10. Try to go down on the feet, however the patient desaturated and I kept her on a PEEP of 10. ABG today showed a pO2 of 84 pCO2 47 pH of 7.26. Patient remains on multiple drips, she had uneventful tracheostomy placed on 08/25 yesterday. However she did not have a PEG tube, continues to have a nasogastric tube in place. She is now on norepinephrine at 0.47 vasopressin at 0.04 amiodarone at 1 mg/m, bicarb at 75 mL/h Versed at 7 mg per hour today I added Solu-Medrol 40 mg IV push every 8 hours. Mostly because on physical examination she has significant rhonchi and wheezes chest x-ray continues to show bilateral infiltrates. Not much of a change. Overall clinical status about the same and unchanged. Patient remains quite swollen and edematous. Remains on Lasix 80 mg IV push daily. WBC count is rising 21.3. H emoglobin is 7.2. Basic metabolic profile is abnormal with low potassium and low sodium low bicarb elevated BUN of 76 creatinine 1.74. Ionized calcium is 5.6 ammonia level remains elevated at 171. Reevaluated today on 08/27/2022, patient remains in the ICU, intubated and mechanically ventilated sedated, patient is on multiple drips including norepinephrine at 0.3 mcg/kg/m vasopressin at 0.04, amiodarone, bicarbonate 75 ML per hour, and she is also on Versed 7 mg per hour. Patient is on assist control rate of 30 tidal volume 400 FiO2 45% PEEP of 10 ABG showed a pO2 of 100 pCO2 48 pH of 7.30. Patient has been receiving Versed, today I recommended that we stop the Versed and assess mental status if possible. Patient continues to have multiple medical issues, and I believe the patient is worsening clinically. Now she is developing ischemic changes in her fingers and in her toes, becoming more cyanotic. And that is mostly because of significant amount of pressors and the patient has been receiving. Today I recommended that we cut down on the presses since her blood pressure seems to be better and I recommended that we stop her Versed to assess mental status if possible. Hospice son is at bedside, updated the son in her condition, family is very well aware that her condition i s extremely poor and futile, nonetheless the is not ready to let go. I have strongly recommended comfort care measures, remains reluctant to do so. WBC count today is 21.3 hemoglobin 7.2. Basic metabolic profile is normal however her BUN is 75 creatinine 1.8 2, chest x-ray continues to show bilateral air space disease and possibly bilateral pleural effusions tracheostomy seems to be in proper position. Progress note dated 08/28/2022. 87-year-old female who was admitted back on August 08. She initially came in with urinary tract infection, possible bowel obstruction, and sepsis. The patient came to the intensive care unit one day later on the , and was intubated on August 10. For prolonged respiratory failure, and inability to wean, the patient underwent tracheostomy on August 25, and is apparently scheduled to have a PEG tube placed today. She remains on volume assist control, rate 30, tidal volume 400, FiO2 45%, and PEEP of 10. Arterial blood gases show pO2 of 95, pCO2 51, and pH is 7.25. The patient remains on TPN at 65 mL an hour, norepinephrine at 46 mcg/m, Versed 7 mg an hour, saline at KVO, insulin at 50 units an hour, and Lasix at 10 mg an hour. White count 22.4, hemoglobin 6.9, hematocrit 22.6, and platelet count 277,000. Sodium 1:30, potassium 3.6, chlorides 97, CO2 23, BUN 79, and creatinine 1.70. Review his blood cultures from the and August 23 show vancomycin-resistant enterococcus. There was no chest x-ray today. Progress note dated 08/29/2022. 87-year-old female who was admitted back on August 08. She initially came in with urinary tract infection, possible bowel obstruction, and sepsis. The patient came to the intensive care unit one day later on the , and was intubated on August 10. For prolonged respiratory failure, and inability to wean, the patient underwent tracheostomy on August 25. The patient remains on the volume assist control, tidal volume 400, FiO2 5%, and PEEP of 10. Arterial blood gases show pO2 105, pCO2 46, pH is 7.32. His blood gases are consistent with a mild respiratory acidosis. The patient remains on Lasix at 10 mg an hour, TPN at 65 mL an hour, Versed 9 mg an hour, norepinephrine at 21 mcg/m, vasopressin at 0.04 units per minute, and saline at 30 mL an hour. The patient received 1 unit packed red blood cells for hemoglobin of 6.5. Her antibiotics include Eraxis, Zyvox and Zerbaxa. White count is 22.6, hemoglobin 6.5, hematocrit 22.3, with a normal platelet count. Sodium 129, potassium 4.3, chlorides 96, CO2 24, BUN 80, and creatinine 1.62. Albumin is 1.6. Chest x-ray shows bilateral infiltrates, which may be on the basis of pneumonia versus CHF. Progress note dated 08/30/2022. 87-year-old female who was admitted on August 08. She initially was admitted with a diagnosis of urinary tract infection, sepsis, and possible bowel obstruction. The patient came to the intensive care unit one day later, and was intubated on August 10. Because of prolonged respiratory failure and inability to wean, the patient underwent tracheostomy on 08/25. Current ventilator settings include the volume assist control, rate 30, tidal volume 400, FiO2 45%, and PEEP of 10. Arterial blood gases show a PaO2 of 87, pCO2 44, and a pH is 7.31. The patient remains on TPN at 65 mL an hour, norepinephrine at 24 mcg/m, vasopressin 0.04 units per minute, Versed 9 mg an hour, Ativan at 8 mg an hour, and Lasix drip at 10 mg an hour. The patient is scheduled to have another EEG today. The patient is currently on Eraxis, Zyvox, and Zerbaxa. White count 20 .7, hemoglobin 8.1, hematocrit 26.3, and platelet count 221,000. Sodium 126, potassium 4, chlorides 93, CO2 21, BUN 81, and creatinine 1.62. The rest of the labs look okay. Chest x-ray shows diffuse bilateral infiltrates, and are largely unchanged. Objective - Vital Signs Vital signs: Vital Signs Temp 95.9 F L 08/30/22 10:00 Pulse 76 08/30/22 10:30 Resp 30 H 08/30/22 10:30 BP 99/41 08/30/22 06:15 Pulse Ox 95 08/30/22 10:30 FiO2 45 08/30/22 07:55 Intake & Output 08/29/22 08/30/22 08/30/22 18:59 06:59 18:59 Intake Total 2656.554 3411.475 295.526 Output Total 1150 665 85 Balance 6555.665 0247.475 210.526 Weight 146 kg 148.5 kg Intake: IV 2187 1291 98 0.9% @ KVO 350 360 30 Anidulafungin 100 mg In 100 Sodium Chloride 0.9% 100 ml @ 84 mls/hr IVPB DAILY [facility] Rx#:[id number] Ceftolozane/Tazobactam 0. 200 75 gm In Sodium Chloride 0.9% 100 ml @ 100 mls/hr IV Q8HR [facility] Rx#:[id number] Fat Emulsion 20% 250 ml 126 105 In Empty Bag 1 bag @ 21 mls/hr IV TuFr [facility] Rx#: [id number] Furosemide 100 mg In 110 10 Sodium Chloride 0.9% 90 ml @ 10 MG/HR 10 mls/hr IV .Q10H [facility] Rx#: [id number] Lacosamide IV 150 mg In 100 Sodium Chloride 0.9% 50 ml @ 100 mls/hr IVPB BID [facility] Rx#:[id number] Linezolid 600 mg In 300 Dextrose/Water 1 300ml. bag @ 150 mls/hr IVPB Q12H [facility] Rx#:[id number] Mvi, Adult No.4 with Vit 715 780 65 K 10 ml Trace (Conc-1Ml/ Dose) 1 ml Sodium Acetate 50 meq Potassium Chloride 50 meq Magnesium Sulfate gm 1 gm Calcium Gluconate 3 gm In Amino Acids 5 %/Dextrose 20 % 1 ,000 ml @ 65 mls/hr IV . BY DURATION [facility] Rx#: [id number] Phenytoin Sodium Inj 300 50 mg In Sodium Chloride 0.9 % 50 ml @ 80 mls/hr IVPB Q12H [facility] Rx#:[id number] Pressure Bag 36 36 3 levETIRAcetam IV 1,000 mg 100 In Saline 1 100ml.bag @ 400 mls/hr IVPB Q12HR [facility] Rx#:[id number] Intake, IV Titration 889.255 9331.475 197.526 Amount Furosemide 100 mg In 85 74.5 98.333 Sodium Chloride 0.9% 90 ml @ 10 MG/HR 10 mls/hr IV .Q10H [facility] Rx#: [id number] LORazepam Vial 25 mg In 243.499 750 Dextrose 5% in Water 244 ml @ Per Protocol IV .Q0M [facility] Rx#:[id number] Midazolam HCl 50 mg In 98 84.95 35.7 Sodium Chloride 0.9% 40 ml @ 6 MG/HR 6 mls/hr IV .Q8H20M [facility] Rx#:[id number] Mvi, Adult No.4 with Vit 1093 K 10 ml Trace (Conc-1Ml/ Dose) 1 ml Sodium Acetate 50 meq Potassium Chloride 50 meq Magnesium Sulfate gm 1 gm Calcium Gluconate 3 gm In Amino Acids 5 %/Dextrose 20 % 1 ,000 ml @ 65 mls/hr IV . BY DURATION [facility] Rx#: [id number] Norepinephrine 32 mg In 43.055 118.025 63.493 Sodium Chloride 0.9% 218 ml @ 0.5 MCG/KG/MIN 25. 547 mls/hr IV .Q9H48M [facility] Rx#:[id number] Blood Product 0 Rc As-1 Unit 0 [id number] Output: Urine 1150 665 85 Other: Voiding Method Indwelling Catheter Indwelling Catheter ABP, PAP, CO, CI - Last Documented Arterial Blood Pressure 105/35 - Exam No acute distress, heavily sedated, and currently on the mechanical ventilator. HEENT examination is grossly unremarkable. Neck supple. Full range of motion. No adenopathy thyromegaly or neck vein distention. A midline tracheostomy tube is noted. Cardiovascular examination reveals regular rhythm rate. S1-S2 normal. No S3 or S4. No discernible murmur noted. Heart rate 76 bpm. Lungs reveal scattered bilateral rhonchi. Breath sounds equal. Saturations are 96 %. Abdomen obese, without bowel sounds. Extremities reveal bilateral lower extremity edema. Skin is without rash or lesion. Neurologic examination cannot be adequately assessed. - Labs CBC & Chem 7: 08/30/22 05:00 08/30/22 05:00 Labs: Abnormal Lab Results - Last 24 Hours (Table) 08/29/22 08/29/22 08/29/22 Range/Units 12:20 13:29 17:56 WBC 23.3 H (3.8-10.6) k/uL RBC 3.05 L (3.80-5.40) m/uL Hgb 8.5 L D (11.4-16.0) gm/dL Hct 26.8 L (34.0-46.0) % MCHC (31.0-37.0) g/dL RDW 18.2 H (11.5-15.5) % Neutrophils # 20.7 H (1.3-7.7) k/uL Lymphocytes # 0.9 L (1.0-4.8) k/uL Monocytes # 1.3 H (0-1.0) k/uL ABG pH (7.35-7.45) ABG O2 Saturation (94-97) % Sodium (137-145) mmol/L Chloride (98-107) mmol/L Carbon Dioxide (22-30) mmol/L BUN (7-17) mg/dL Creatinine (0.52-1.04) mg/dL Glucose (74-99) mg/dL POC Glucose (mg/dL) 187 H 268 H (70-110) mg/dL Calcium (8.4-10.2) mg/dL Alkaline Phosphatase (38-126) U/L Ammonia (<30) umol/L Total Protein (6.3-8.2) g/dL Albumin (3.5-5.0) g/dL 08/30/22 08/30/22 08/30/22 Range/Units 00:04 05:00 05:00 WBC 20.7 H (3.8-10.6) k/uL RBC 2.96 L (3.80-5.40) m/uL Hgb 8.1 L (11.4-16.0) gm/dL Hct 26.3 L (34.0-46.0) % MCHC 30.8 L (31.0-37.0) g/dL RDW 18.6 H (11.5-15.5) % Neutrophils # 18.6 H (1.3-7.7) k/uL Lymphocytes # 0.6 L (1.0-4.8) k/uL Monocytes # 1.1 H (0-1.0) k/uL ABG pH (7.35-7.45) ABG O2 Saturation (94-97) % Sodium 126 L (137-145) mmol/L Chloride 93 L (98-107) mmol/L Carbon Dioxide 21 L (22-30) mmol/L BUN 81 H (7-17) mg/dL Creatinine 1.62 H (0.52-1.04) mg/dL Glucose 293 H (74-99) mg/dL POC Glucose (mg/dL) 268 H (70-110) mg/dL Calcium 6.9 L (8.4-10.2) mg/dL Alkaline Phosphatase 161 H (38-126) U/L Ammonia (<30) umol/L Total Protein 4.1 L (6.3-8.2) g/dL Albumin 1.6 L (3.5-5.0) g/dL 08/30/22 08/30/22 08/30/22 Range/Units 05:44 08:09 09:12 WBC (3.8-10.6) k/uL RBC (3.80-5.40) m/uL Hgb (11.4-16.0) gm/dL Hct (34.0-46.0) % MCHC (31.0-37.0) g/dL RDW (11.5-15.5) % Neutrophils # (1.3-7.7) k/uL Lymphocytes # (1.0-4.8) k/uL Monocytes # (0-1.0) k/uL ABG pH 7.31 L (7.35-7.45) ABG O2 Saturation 97.1 H (94-97) % Sodium (137-145) mmol/L Chloride (98-107) mmol/L Carbon Dioxide (22-30) mmol/L BUN (7-17) mg/dL Creatinine (0.52-1.04) mg/dL Glucose (74-99) mg/dL POC Glucose (mg/dL) 270 H (70-110) mg/dL Calcium (8.4-10.2) mg/dL Alkaline Phosphatase (38-126) U/L Ammonia 50 H (<30) umol/L Total Protein (6.3-8.2) g/dL Albumin (3.5-5.0) g/dL Assessment and Plan Assessment: Acute on chronic hypoxemic respiratory failure, status post intubation on August 10, and tracheostomy on August 25. Status post PEG tube placement, 08/28/2022. Acute on chronic diastolic CHF. Abdominal sepsis/septic shock. Anion gap metabolic acidosis. Urinary tract infection secondary to Enterococcus faecalis and pseudomonas aeruginosa. Bacteremia secondary to vancomycin-resistant enterococci. Systemic candidiasis. Atrial fibrillation with RVR. Acute on chronic kidney disease. Recent history of coronavirus infection. History of aortic stenosis. Acute on chronic anemia. History of COPD. History of diastolic congestive heart failure. Morbid obesity. Plan: Plan dated 08/28/2022. The patient remains a DO NOT RESUSCITATE patient, but the patient family still wants everything done at this time. The patient will continue on GI and DVT prophylaxis. The patient continues on antibiotics as per infectious diseases. The patient remains on norepinephrine at 46 mcg/m. She also remains on Versed, because of ongoing seizure activity. The patient continues on insulin at 50 units an hour, and a Lasix drip, as well as TPN. The plan is to do a PEG tube today. Additional recommendations and suggestions are forthcoming. Labs, x- rays, and medications are reviewed. Patient is very critically ill, and overall prognosis remains guarded. Plan dated 08/29/2022. The patient remains a DO NOT RESUSCITATE patient. The patient did have a PEG tube placed yesterday. She remains on multiple drips including Lasix, Versed, norepinephrine, and vasopressin. She will receive 1 unit of packed red blood cells for hemoglobin 6.5. He remains on good antibiotics and antifungals. Blood gases show a very mild respiratory acidosis. She remains on 45% and 10 of PEEP. Prognosis is very guarded. We will continue to follow make recommendations along the way. Plan dated 08/30/2022. The patient remains a DO NOT RESUSCITATE patient. I had a long conversation with the yesterday. The patient remains on appropriate medications including antibiotics, and antifungals, TPN, norepinephrine, vasopressin, Versed, and Ativan. In addition, the patient remains on Lasix drip. The patient had an EEG yesterday, and will have another one today. Neurology is following the patient. Respiratory status is stable. We will continue to follow and make recommendations along the way. Overall prognosis is poor. Time with Patient: Greater than 30
[2022-08-30 12:18] LABS: Glucose,Whole Blood 270 mg/dL (70-110)
--- NOTE | 2022-08-30 13:29 | P.PN ---
Subjective Progress Note Date: 08/30/22 H&P Date: 08/09/22 Chief Complaint: Shortness of breath,Altered mental statConstipation, syncope, hyperglycemia This is a pleasant 87-year-old female with past medical history of CAD, ME, stent placement, aortic stenosis ,chronic hypoxic respiratory failure,on 2 L nasal cannula ,Covid 06/22,COPD, former nicotine dependence, obstructive sleep apnea ,CVA/TIA, diabetes mellitus, hypertension, hyperlipidemia, hypothyroidism, recurrent UTIs,CKD III, urinary retention, anemia, bilateral peripheral neuropathy, gait dysfunction,utilizing walker, falls, morbid obesity-BMI 39.9 and multiple other medical issues brought in via ambulance, on BiPAP to the ER for change in level of consciousness, syncope, nausea, vomiting, hyperglycemia, constipation-on [place], shortness of breath, recently discharged from [facility] subacute rehab on 08/06/2022. Information being obtained from chart and daughter at bedside. Daughter reports they are unsure of her last bowel movement, possibly , 08/03. [facility] documented large bowel movement on 08/04 and 08/05. Reports yesterday blood sugars were running high in the 400s, patient developed nausea and vomiting, change in sensorium, passed out while on the toilet. Reports patient "coughs all the time, but has COPD", no knowledge of fevers, denies chills. Denies chest pain, palpitations, positive shortness of breath. Developed hypotension in the ER in addition to emesis, received fluid bolus .Chest x-ray reported right basilar infiltrate with persistent small right effusion, no overt failure. EKG reported sinus rhythm, troponin negative 1. KUB reported marked gastric distention, additional small bowel loops dilated, possibly retained debris within the rectum and sigmoid colon. 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 NG tube placed in the ER with 1200 MLS bilious output reported overnight. D-dimer elevated 4.73, CT angio chest reported no evidence of pulmonary embolism,more consolidation changes in the right lung base, rule out aspiration. ProBNP 426. UA reported many WBC clumps, 165 WBCs, large leukocytes, negative nitrates, culture pending. Afebrile, on admission temperature 96.7, currently 98.8. WBC 14.3. lactic acid 3.5, repeat level pending. Hemoglobin 10.2, platelets 4:15, a I's within normal limits, BUN 40, creatinine 1.5. BiPAP weaned off, currently requiring 6 L nasal cannula O2 to maintain O2 sats in the low 90s. 08/10/22 Continued to decline throughout the night requiring ICU admission, maintained on vasopressin, Levophed and bicarb drips. Received fluid boluses throughout the night. Lactic acid decreased to 2.1. Low urine output on Lasix IV push. BUN 81, creatinine 2.68. Hyperkalemic, received calcium, insulin, D50, sodium bicarbonate. Chest x-ray reporting stable bilateral lower lobe infiltrate and small effusion. Afebrile, T-max 99.7. Continues on Levaquin, WBC normalized today. Cefepime added to antibiotic regimen today. Preliminary Urine cultures reporting group D enterococcus 50-100,000 colonies and gram-negative bacilli 10 and 49,000 colonies. 07/03 Blood cultures reporting GNB. Hemoglobin 8.2, platelets 311. 08/11/2022 Vent dependent, FiO2 60%/+5 of PEEP. Chest x-ray reports stable, no change in bibasilar opacities, pleural effusion unchanged. Continues on the Levophed and vasopressin drips. Febrile to the night, T-max 102.4, WBC increased to 12.2. Lactic acid trended up during the night, received fluid boluses, currently at 3.2. Developed atrial fibrillation with RVR, bolused with amiodarone and currently on amiodarone drip. Urine culture reporting enterococcus faecalis and Pseudomonas aeruginosa.Films reviewed by general surgery, reporting sigmoid volvulus. Recommending conservative management. BUN 79, creatinine 2.74. Hyperglycemic. Hemoglobin 8.6, platelets 349. Anticoagulation remains on hold. 08/21/2022 remains vent dependent, FiO2 50%/+5 of PEEP. Maintained on high doses of levophed, vasopressin. Amiodarone and bicarb drips continue. Receiving IV albumin to be followed by Lasix. Worsening renal function. Staff reports no urine output 24 hours. Bicarb 16, BUN 76, creatinine 1.73. Repeat CT of abdomen and pelvis completed yesterday, reporting moderate volume pneumo peritoneum, suspected perforation of distal colonic bowel, extensive distal bowel pneumatosis. Surgery discussed findings with family, high risk for surgical intervention. Family decided against surgical intervention,but to continue with nonsurgical care. T-max 100.6. Maintained on Zerbaxa, Eraxis, daptomycin .Seizure-like activity reported yesterday afternoon, placed on Keppra, reoccurred in the supervisor calibration hours 2. Brain CT reported no acute intracranial process .EEG completed, results pending. 08/22/2022 vent dependent, 40% FiO2, +5 of PEEP. Staff reports patient desats quickly with turning. Chest x-ray reporting bibasilar atelectasis, consolidation, minimally increased, possible tiny right basilar pleural effusion. Continues on high doses of pressors, digits dusky. Maintained on bicarb drip. Telemetry atrial fibrillation, fast ventricular rate on amiodarone drip. Remains on antibiotics as per infectious disease.BUN 83, creatinine 1.79. T-max 102, WBC decreased, 16.5 08/23/2022 FiO2 50%/+5 of PEEP. Chest x-ray reported no significant change .Continues on pressor support. Maintained on amiodarone drip, heart rates currently in the 1 teens to 120s. Continues on daptomycin, Zerbexa and Eraxis.T-max 100.9, WBC 15.3. BUN 83, creatinine 2.13. WBC decreased to 15.3. Receiving IV albumin, Albumin currently 1.6. Ionized calcium 3.4, receiving supplementation. 08/24/2022 continues in A. fib, heart rates 110 to 130s on amiodarone drip. Seizure activity yesterday reported with facial twitching lasting approximately half an hour EEG performed-reported abnormal 2-1/2 hour EEG suggesting epileptiform focus involving midline occipital parietal region. Vimpat and Keppra doses increased. Continue to have seizure activity today, right-sided face twitching, trembling of arm reported, repeat EEG in progress. Versed drip initiated. Brain Ct pending. Maximized on both norepi and vasopressin. Digits dusky, declining comfort care at this time. Continues on bicarb drip. Remains vent dependent on FiO2 50%/+5 of PEEP. Now trach and PEG are being considered. 08/25/2022 maximized on pressors, levophed and vasopressin. Mechanical ventilator-dependent, FiO2 50%/+5 of PEEP. Chest x-ray reporting worsening bibasilar consolidation ,bilateral pneumonia. Family meeting via phone this morning with Dr. Hartman PCP, regarding poor prognosis, futile condition. Scheduled for tracheostomy and PEG-consent pending. Continues on amiodarone, bicarb drips. TPN. Continues to have seizure activity, on Versed drip, Dilantin added to med regimen. Afebrile, worsening WBC, 21.7, potassium 3, receiving supplementation. BUN 79, creatinine 1.87. Ionized calcium 3.4, supplemented. 08/28/2022 Remains vent dependent, FiO2 45%/+10 of PEEP status post tracheostomy 08/25. Nebulized bronchodilators, IV steroids. Receiving TPN/lipids. Requiring insulin drip for hyperglycemia, blood sugars currently ranging 160s to 170s.Ongoing seizures, continues on Versed drip, Dilantin, Keppra, Vimpat. EEG repeated yesterday, reported severely abnormal, suppression worsening-seen with severe anoxic or toxic metabolic encephalopathy, nonconvulsive generalized status epilepticus cannot be ruled out. Maintained on vasopressin, Levophed and Lasix drips. Antibiotics as per infectious disease. Afebrile, WBC 22.4. 08/29/2022 remains vent dependent, FiO2 45%/+10 of PEEP. Chest x-ray reporting bilateral infiltrates and pleural effusion, pneumonia versus CHF. PEG tube unable to be placed, please refer to the surgeon's note.Maintained on vasopressin, Levophed Lasix, Versed and Ativan drips. Repeat EEG pending. Continues on antibiotics of Eraxis, Zyvox and Zerbaxa. Afebrile, WBC 22.6. Hemoglobin 6.5, receiving one unit of packed RBCs. Platelets 255. 08/30/2022 remains vent dependent, FiO2 45%/+10 of PEEP. Chest x-ray reporting stable bilateral infiltrates and pleural effusion. Continues on TPN, Lasix drip, norepinephrine, vasopressin. Maintained on Eraxis, Zyvox and Zerbaxa. Afebrile, WBC 20.7. Ammonia 50.EEG yesterday -refer to neurology report.Versed and Ativan drips turned off, 2 hour EEG recently started. Received one unit of packed RBCs yesterday with current hemoglobin 8.1, platelets 221. Sodium decreased to 126. Bicarb 21, BUN 81, creatinine 1.62. Albumin 1.6. Nephrology discussing renal replacement therapy secondary to fluid volume overload if family continues with aggressive therapy. Objective - Vital Signs Vital signs: Vital Signs Temp 96.3 F L 08/30/22 12:00 Pulse 87 08/30/22 12:00 Resp 30 H 08/30/22 12:00 BP 99/41 08/30/22 06:15 Pulse Ox 94 L 08/30/22 12:00 FiO2 45 08/30/22 12:00 Intake & Output 08/29/22 08/30/22 08/30/22 18:59 06:59 18:59 Intake Total 2656.554 3411.475 1365.137 Output Total 1150 665 510 Balance 5738.774 1937.475 855.137 Weight 146 kg 148.5 kg Intake: IV 2187 1291 838 0.9% @ KVO 350 360 30 Anidulafungin 100 mg In 100 100 Sodium Chloride 0.9% 100 ml @ 84 mls/hr IVPB DAILY [facility] Rx#:[id number] Ceftolozane/Tazobactam 0. 200 100 75 gm In Sodium Chloride 0.9% 100 ml @ 100 mls/hr IV Q8HR [facility] Rx#:[id number] Fat Emulsion 20% 250 ml 126 105 In Empty Bag 1 bag @ 21 mls/hr IV TuFr [facility] Rx#: [id number] Furosemide 100 mg In 110 10 Sodium Chloride 0.9% 90 ml @ 10 MG/HR 10 mls/hr IV .Q10H [facility] Rx#: [id number] Lacosamide IV 150 mg In 100 100 Sodium Chloride 0.9% 50 ml @ 100 mls/hr IVPB BID [facility] Rx#:[id number] Linezolid 600 mg In 300 Dextrose/Water 1 300ml. bag @ 150 mls/hr IVPB Q12H [facility] Rx#:[id number] Mvi, Adult No.4 with Vit 715 780 390 K 10 ml Trace (Conc-1Ml/ Dose) 1 ml Sodium Acetate 50 meq Potassium Chloride 50 meq Magnesium Sulfate gm 1 gm Calcium Gluconate 3 gm In Amino Acids 5 %/Dextrose 20 % 1 ,000 ml @ 65 mls/hr IV . BY DURATION [facility] Rx#: [id number] Phenytoin Sodium Inj 300 50 mg In Sodium Chloride 0.9 % 50 ml @ 80 mls/hr IVPB Q12H [facility] Rx#:[id number] Pressure Bag 36 36 18 levETIRAcetam IV 1,000 mg 100 100 In Saline 1 100ml.bag @ 400 mls/hr IVPB Q12HR [facility] Rx#:[id number] Intake, IV Titration 097.920 9211.475 527.137 Amount Furosemide 100 mg In 85 74.5 98.333 Sodium Chloride 0.9% 90 ml @ 10 MG/HR 10 mls/hr IV .Q10H [facility] Rx#: [id number] LORazepam Vial 25 mg In 243.499 750 275.333 Dextrose 5% in Water 244 ml @ Per Protocol IV .Q0M [facility] Rx#:[id number] Midazolam HCl 50 mg In 98 84.95 73.5 Sodium Chloride 0.9% 40 ml @ 6 MG/HR 6 mls/hr IV .Q8H20M [facility] Rx#:[id number] Mvi, Adult No.4 with Vit 1093 K 10 ml Trace (Conc-1Ml/ Dose) 1 ml Sodium Acetate 50 meq Potassium Chloride 50 meq Magnesium Sulfate gm 1 gm Calcium Gluconate 3 gm In Amino Acids 5 %/Dextrose 20 % 1 ,000 ml @ 65 mls/hr IV . BY DURATION [facility] Rx#: [id number] Norepinephrine 32 mg In 43.055 118.025 79.971 Sodium Chloride 0.9% 218 ml @ 0.5 MCG/KG/MIN 25. 547 mls/hr IV .Q9H48M [facility] Rx#:[id number] Blood Product 0 Rc As-1 Unit 0 [id number] Output: Urine 1150 665 510 Other: Voiding Method Indwelling Catheter Indwelling Catheter ABP, PAP, CO, CI - Last Documented Arterial Blood Pressure 115/43 - Exam GENERAL EXAM: on mechanical ventilation/tracheostomy. HEENT: Normocephalic. NECK: supple, unable to assess for JVD. LUNGS: Equal air entry with scattered rhonchi CV: S1 and S2 normal with no audible murmur, irregular rhythm. ABDOMEN:Distended SKIN: Edematous CENTRAL NERVOUS SYSTEM: Unable to assess, on mechanical ventilation EXTREMITIES: Positive peripheral edema, dusky digits. - Labs CBC & Chem 7: 08/30/22 05:00 08/30/22 05:00 Labs: Abnormal Lab Results - Last 24 Hours (Table) 08/29/22 08/29/22 08/30/22 Range/Units 13:29 17:56 00:04 WBC 23.3 H (3.8-10.6) k/uL RBC 3.05 L (3.80-5.40) m/uL Hgb 8.5 L D (11.4-16.0) gm/dL Hct 26.8 L (34.0-46.0) % MCHC (31.0-37.0) g/dL RDW 18.2 H (11.5-15.5) % Neutrophils # 20.7 H (1.3-7.7) k/uL Lymphocytes # 0.9 L (1.0-4.8) k/uL Monocytes # 1.3 H (0-1.0) k/uL ABG pH (7.35-7.45) ABG O2 Saturation (94-97) % Sodium (137-145) mmol/L Chloride (98-107) mmol/L Carbon Dioxide (22-30) mmol/L BUN (7-17) mg/dL Creatinine (0.52-1.04) mg/dL Glucose (74-99) mg/dL POC Glucose (mg/dL) 268 H 268 H (70-110) mg/dL Calcium (8.4-10.2) mg/dL Alkaline Phosphatase (38-126) U/L Ammonia (<30) umol/L Total Protein (6.3-8.2) g/dL Albumin (3.5-5.0) g/dL 08/30/22 08/30/22 08/30/22 Range/Units 05:00 05:00 05:44 WBC 20.7 H (3.8-10.6) k/uL RBC 2.96 L (3.80-5.40) m/uL Hgb 8.1 L (11.4-16.0) gm/dL Hct 26.3 L (34.0-46.0) % MCHC 30.8 L (31.0-37.0) g/dL RDW 18.6 H (11.5-15.5) % Neutrophils # 18.6 H (1.3-7.7) k/uL Lymphocytes # 0.6 L (1.0-4.8) k/uL Monocytes # 1.1 H (0-1.0) k/uL ABG pH 7.31 L (7.35-7.45) ABG O2 Saturation 97.1 H (94-97) % Sodium 126 L (137-145) mmol/L Chloride 93 L (98-107) mmol/L Carbon Dioxide 21 L (22-30) mmol/L BUN 81 H (7-17) mg/dL Creatinine 1.62 H (0.52-1.04) mg/dL Glucose 293 H (74-99) mg/dL POC Glucose (mg/dL) (70-110) mg/dL Calcium 6.9 L (8.4-10.2) mg/dL Alkaline Phosphatase 161 H (38-126) U/L Ammonia (<30) umol/L Total Protein 4.1 L (6.3-8.2) g/dL Albumin 1.6 L (3.5-5.0) g/dL 08/30/22 08/30/22 08/30/22 Range/Units 08:09 09:12 12:15 WBC (3.8-10.6) k/uL RBC (3.80-5.40) m/uL Hgb (11.4-16.0) gm/dL Hct (34.0-46.0) % MCHC (31.0-37.0) g/dL RDW (11.5-15.5) % Neutrophils # (1.3-7.7) k/uL Lymphocytes # (1.0-4.8) k/uL Monocytes # (0-1.0) k/uL ABG pH (7.35-7.45) ABG O2 Saturation (94-97) % Sodium (137-145) mmol/L Chloride (98-107) mmol/L Carbon Dioxide (22-30) mmol/L BUN (7-17) mg/dL Creatinine (0.52-1.04) mg/dL Glucose (74-99) mg/dL POC Glucose (mg/dL) 270 H 270 H (70-110) mg/dL Calcium (8.4-10.2) mg/dL Alkaline Phosphatase (38-126) U/L Ammonia 50 H (<30) umol/L Total Protein (6.3-8.2) g/dL Albumin (3.5-5.0) g/dL Assessment and Plan Assessment: Sepsis, septic shock secondary to acute enterococcus faecalis and Pseudomonas aeruginosa UTI, with acute VRE bacteremia ,abdominal sepsis. Systemic candidiasis. Hypotension, severe, secondary to the above, pressor dependent Seizure activity, workup in progress, neurology following Acute on chronic hypoxic respiratory failure, ventilator dependent, secondary to all the above, status post tracheostomy 08/25 Volume overload Hyperammonium Chronic changes of the right lower lobe and small right pleural effusion as per pulmonary Acute on CKD III, secondary to ATN related to the above Persistent Atrial fibrillation with RVR, status post amiodarone drip, In a patient with history of chronic atrial fibrillation. Metabolic acidosis, on bicarb drip Abdominal pain, constipation, last bowel movement reported 08/05.Films reviewed by general surgery, reporting sigmoid volvulus. Continued clinical worsening;Probable perforated viscus with pneumoperitoneum reported per CT on 08/20/2022. Leukocytosis Diabetes mellitus, family reports hyperglycemic at home, controlled IP, A1c 6. Recent COVID-19 infection, 06/22 COPD, history of Valvular heart disease, moderate aortic stenosis, preserved LV function History of CHF, diastolic dysfunction Chronic anemia Generalized weakness, gait dysfunction, multiple falls recently reported, recently discharged from [facility] subacute rehab. 08/06/22. History of CVA, TIA History of Hypertension Hyperlipidemia Hypothyroidism Morbid obesity, BMI 56.7 No code, no CPR, no reintubation Plan: Continue on current medication regime ,monitoring and symptomatic treatment. Currently, no family at bedside. EEG in progress as per neurology. Maintaining supportive care. Multiple consults following.ICU management as per emergency medicine specialist. Prognosis poor given multiple complex medical issues. The impression and plan of care has been dictated as directed. : I performed a history and examination of this patient, discussed the same with the dictator. I agree with the dictator's note ,documented as a scribe. Any additional findings or plans will be noted.
--- NOTE | 2022-08-30 14:29 | P.PN ---
Subjective Progress Note Date: 08/30/22 Principal diagnosis: Sepsis/septic shock Patient is a 87-year-old female with multiple comorbidities presented to the hospital with a syncopal episode weakness subsequently hypotension, sepsis requiring transfer to the ICU and intubation on the vent. She patient did have a CT of abdominal pelvis completed on 08/20/2022 with evidence of pneumoperitoneum Gen. surgery discussed with the family currently being treated medically On today's evaluation that is 08/30/2022, the patient remains to be afebrile, the patient is requiring less pressor support compared to yesterday to maintain her blood pressure per the nursing staff, the patient FiO2 is stable at 45 %, no pur ulent secretions through the ET , patient did have NG to suction, patient is on TPN for nutrition, patient is also on Lasix and insulin drip, Objective - Vital Signs Vital signs: Vital Signs Temp 95.9 F L 08/30/22 10:00 Pulse 92 08/30/22 11:30 Resp 30 H 08/30/22 11:30 BP 99/41 08/30/22 06:15 Pulse Ox 94 L 08/30/22 11:30 FiO2 45 08/30/22 11:12 Intake & Output 08/29/22 08/30/22 08/30/22 18:59 06:59 18:59 Intake Total 2656.554 3411.475 1280.659 Output Total 1150 665 410 Balance 0977.499 2872.475 870.659 Weight 146 kg 148.5 kg Intake: IV 2187 1291 770 0.9% @ KVO 350 360 30 Anidulafungin 100 mg In 100 100 Sodium Chloride 0.9% 100 ml @ 84 mls/hr IVPB DAILY [facility] Rx#:[id number] Ceftolozane/Tazobactam 0. 200 100 75 gm In Sodium Chloride 0.9% 100 ml @ 100 mls/hr IV Q8HR [facility] Rx#:[id number] Fat Emulsion 20% 250 ml 126 105 In Empty Bag 1 bag @ 21 mls/hr IV TuFr [facility] Rx#: [id number] Furosemide 100 mg In 110 10 Sodium Chloride 0.9% 90 ml @ 10 MG/HR 10 mls/hr IV .Q10H [facility] Rx#: [id number] Lacosamide IV 150 mg In 100 100 Sodium Chloride 0.9% 50 ml @ 100 mls/hr IVPB BID [facility] Rx#:[id number] Linezolid 600 mg In 300 Dextrose/Water 1 300ml. bag @ 150 mls/hr IVPB Q12H [facility] Rx#:[id number] Mvi, Adult No.4 with Vit 715 780 325 K 10 ml Trace (Conc-1Ml/ Dose) 1 ml Sodium Acetate 50 meq Potassium Chloride 50 meq Magnesium Sulfate gm 1 gm Calcium Gluconate 3 gm In Amino Acids 5 %/Dextrose 20 % 1 ,000 ml @ 65 mls/hr IV . BY DURATION [facility] Rx#: [id number] Phenytoin Sodium Inj 300 50 mg In Sodium Chloride 0.9 % 50 ml @ 80 mls/hr IVPB Q12H [facility] Rx#:[id number] Pressure Bag 36 36 15 levETIRAcetam IV 1,000 mg 100 100 In Saline 1 100ml.bag @ 400 mls/hr IVPB Q12HR [facility] Rx#:[id number] Intake, IV Titration 303.816 1126.475 510.659 Amount Furosemide 100 mg In 85 74.5 98.333 Sodium Chloride 0.9% 90 ml @ 10 MG/HR 10 mls/hr IV .Q10H [facility] Rx#: [id number] LORazepam Vial 25 mg In 243.499 750 275.333 Dextrose 5% in Water 244 ml @ Per Protocol IV .Q0M [facility] Rx#:[id number] Midazolam HCl 50 mg In 98 84.95 73.5 Sodium Chloride 0.9% 40 ml @ 6 MG/HR 6 mls/hr IV .Q8H20M [facility] Rx#:[id number] Mvi, Adult No.4 with Vit 1093 K 10 ml Trace (Conc-1Ml/ Dose) 1 ml Sodium Acetate 50 meq Potassium Chloride 50 meq Magnesium Sulfate gm 1 gm Calcium Gluconate 3 gm In Amino Acids 5 %/Dextrose 20 % 1 ,000 ml @ 65 mls/hr IV . BY DURATION [facility] Rx#: [id number] Norepinephrine 32 mg In 43.055 118.025 63.493 Sodium Chloride 0.9% 218 ml @ 0.5 MCG/KG/MIN 25. 547 mls/hr IV .Q9H48M [facility] Rx#:[id number] Blood Product 0 Rc As-1 Unit 0 [id number] Output: Urine 1150 665 410 Other: Voiding Method Indwelling Catheter Indwelling Catheter ABP, PAP, CO, CI - Last Documented Arterial Blood Pressure 117/42 - Exam GENERAL DESCRIPTION: An elderly female intubated on the vent RESPIRATORY SYSTEM: Unlabored breathing , decreased breath sounds at bases HEART: S1 S2 regular rate and rhythm , ABDOMEN: Soft , abdominal distention EXTREMITIES: Diffuse swelling bilateral lower extremity no redness - Labs CBC & Chem 7: 08/30/22 05:00 08/30/22 05:00 Labs: Abnormal Lab Results - Last 24 Hours (Table) 08/29/22 08/29/22 08/29/22 Range/Units 12:20 13:29 17:56 WBC 23.3 H (3.8-10.6) k/uL RBC 3.05 L (3.80-5.40) m/uL Hgb 8.5 L D (11.4-16.0) gm/dL Hct 26.8 L (34.0-46.0) % MCHC (31.0-37.0) g/dL RDW 18.2 H (11.5-15.5) % Neutrophils # 20.7 H (1.3-7.7) k/uL Lymphocytes # 0.9 L (1.0-4.8) k/uL Monocytes # 1.3 H (0-1.0) k/uL ABG pH (7.35-7.45) ABG O2 Saturation (94-97) % Sodium (137-145) mmol/L Chloride (98-107) mmol/L Carbon Dioxide (22-30) mmol/L BUN (7-17) mg/dL Creatinine (0.52-1.04) mg/dL Glucose (74-99) mg/dL POC Glucose (mg/dL) 187 H 268 H (70-110) mg/dL Calcium (8.4-10.2) mg/dL Alkaline Phosphatase (38-126) U/L Ammonia (<30) umol/L Total Protein (6.3-8.2) g/dL Albumin (3.5-5.0) g/dL 08/30/22 08/30/22 08/30/22 Range/Units 00:04 05:00 05:00 WBC 20.7 H (3.8-10.6) k/uL RBC 2.96 L (3.80-5.40) m/uL Hgb 8.1 L (11.4-16.0) gm/dL Hct 26.3 L (34.0-46.0) % MCHC 30.8 L (31.0-37.0) g/dL RDW 18.6 H (11.5-15.5) % Neutrophils # 18.6 H (1.3-7.7) k/uL Lymphocytes # 0.6 L (1.0-4.8) k/uL Monocytes # 1.1 H (0-1.0) k/uL ABG pH (7.35-7.45) ABG O2 Saturation (94-97) % Sodium 126 L (137-145) mmol/L Chloride 93 L (98-107) mmol/L Carbon Dioxide 21 L (22-30) mmol/L BUN 81 H (7-17) mg/dL Creatinine 1.62 H (0.52-1.04) mg/dL Glucose 293 H (74-99) mg/dL POC Glucose (mg/dL) 268 H (70-110) mg/dL Calcium 6.9 L (8.4-10.2) mg/dL Alkaline Phosphatase 161 H (38-126) U/L Ammonia (<30) umol/L Total Protein 4.1 L (6.3-8.2) g/dL Albumin 1.6 L (3.5-5.0) g/dL 08/30/22 08/30/22 08/30/22 Range/Units 05:44 08:09 09:12 WBC (3.8-10.6) k/uL RBC (3.80-5.40) m/uL Hgb (11.4-16.0) gm/dL Hct (34.0-46.0) % MCHC (31.0-37.0) g/dL RDW (11.5-15.5) % Neutrophils # (1.3-7.7) k/uL Lymphocytes # (1.0-4.8) k/uL Monocytes # (0-1.0) k/uL ABG pH 7.31 L (7.35-7.45) ABG O2 Saturation 97.1 H (94-97) % Sodium (137-145) mmol/L Chloride (98-107) mmol/L Carbon Dioxide (22-30) mmol/L BUN (7-17) mg/dL Creatinine (0.52-1.04) mg/dL Glucose (74-99) mg/dL POC Glucose (mg/dL) 270 H (70-110) mg/dL Calcium (8.4-10.2) mg/dL Alkaline Phosphatase (38-126) U/L Ammonia 50 H (<30) umol/L Total Protein (6.3-8.2) g/dL Albumin (3.5-5.0) g/dL Assessment and Plan (1) Sepsis Current Visit: Yes Status: Acute Code(s): A41.9 - SEPSIS, UNSPECIFIED ORGANISM SNOMED Code(s): 31712003 Plan: 1patient was in the hospital with sepsis and septic shock initially concern for multidrug-resistant Pseudomonas UTI, patient also have a candidemia secondary to possible abdominal source and now with a VRE bacteremia source likely abdominal 2patient did have evidence of colonic perforation and peritonitis being managed medically as the patient considered to be high risk for any surgical procedure 3patient did have persistent VRE bacteremia and could be related to the multiple lines , patient will benefit from removal of those lines to control her bacteremia, patient family has been insisting on blood cultures which has been ordered , results currently pending 4-the patient clinical condition remains to be guarded however the patient did have resolution of her fever and white count still elevated could be related to steroids and will be monitored closely 5- patient to continue with Zyvox Zerbex and Eraxis and continue supportive care, prognosis remains to be guarded Time with Patient: Greater than 30
--- NOTE | 2022-08-30 14:30 | P.PN ---
Subjective Progress Note Date: 08/30/22 CHIEF COMPLAINT: Abdominal pain HISTORY OF PRESENT ILLNESS: Patient remains in the ICU and on mechanical ventilation. Patient had tracheostomy placed on 08/25/2022. Patient was unable to have PEG tube placed because light reflex was not visualized during EGD. Patient remains on TPN for nutrition support. Patient states have another EEG completed today. Followed by neurology and on Versed for seizures. Patient has fecal management system in place. Afebrile. Tachycardia improved. Purulent come down on the Levophed. WBC decreased from 23 to 20.7 Hgb 8.1 platelets 221 sodium 126 creatinine 1.62 Patient seen and examined with Dr. Head PHYSICAL EXAM: VITAL SIGNS: Reviewed GENERAL: On mechanical ventilation. Head is atraumatic, normocephalic. No nasal drainage. Tracheostomy site clean dry and intact NECK: Supple without lymphadenopathy. CHEST: Non-labored respirations and equal bilateral excursions. CARDIOVASCULAR: Palpable 2+ radial pulses. ABDOMEN: Distended. NG tube with bilious output MUSCULOSKELETAL: No clubbing or cyanosis. ASSESSMENT: 1. Colon perforation 2. Sigmoid volvulus 3. Constipation 4. Sepsis and septic shock 5. UTI 6. Lactic acidosis 7. Acute on chronic kidney disease 8. History of atrial fibrillation 9. History of CVA 9. Hypokalemia 10. Hypocalcemia 11. Blood culture with yeast 12. Hepatic encephalopathy with elevated ammonia 13. Severe protein calorie malnutrition PLAN: -Okay to start tube feeds through [facility] -Continue supportive care -Continue ICU Physician [employer] Supervisor note has been reviewed by physician. Signing provider agrees with the documented findings, assessment, and plan of care. Objective - Vital Signs Vital signs: Vital Signs Temp 95.9 F L 08/30/22 10:00 Pulse 92 08/30/22 11:30 Resp 30 H 08/30/22 11:30 BP 99/41 08/30/22 06:15 Pulse Ox 94 L 08/30/22 11:30 FiO2 45 08/30/22 11:12 Intake & Output 08/29/22 08/30/22 08/30/22 18:59 06:59 18:59 Intake Total 2656.554 3411.475 1280.659 Output Total 1150 665 410 Balance 0378.569 1969.475 870.659 Weight 146 kg 148.5 kg Intake: IV 2187 1291 770 0.9% @ KVO 350 360 30 Anidulafungin 100 mg In 100 100 Sodium Chloride 0.9% 100 ml @ 84 mls/hr IVPB DAILY [facility] Rx#:[id number] Ceftolozane/Tazobactam 0. 200 100 75 gm In Sodium Chloride 0.9% 100 ml @ 100 mls/hr IV Q8HR [facility] Rx#:[id number] Fat Emulsion 20% 250 ml 126 105 In Empty Bag 1 bag @ 21 mls/hr IV TuFr [facility] Rx#: [id number] Furosemide 100 mg In 110 10 Sodium Chloride 0.9% 90 ml @ 10 MG/HR 10 mls/hr IV .Q10H [facility] Rx#: [id number] Lacosamide IV 150 mg In 100 100 Sodium Chloride 0.9% 50 ml @ 100 mls/hr IVPB BID [facility] Rx#:[id number] Linezolid 600 mg In 300 Dextrose/Water 1 300ml. bag @ 150 mls/hr IVPB Q12H [facility] Rx#:[id number] Mvi, Adult No.4 with Vit 715 780 325 K 10 ml Trace (Conc-1Ml/ Dose) 1 ml Sodium Acetate 50 meq Potassium Chloride 50 meq Magnesium Sulfate gm 1 gm Calcium Gluconate 3 gm In Amino Acids 5 %/Dextrose 20 % 1 ,000 ml @ 65 mls/hr IV . BY DURATION [facility] Rx#: [id number] Phenytoin Sodium Inj 300 50 mg In Sodium Chloride 0.9 % 50 ml @ 80 mls/hr IVPB Q12H [facility] Rx#:[id number] Pressure Bag 36 36 15 levETIRAcetam IV 1,000 mg 100 100 In Saline 1 100ml.bag @ 400 mls/hr IVPB Q12HR [facility] Rx#:[id number] Intake, IV Titration 446.890 6423.475 510.659 Amount Furosemide 100 mg In 85 74.5 98.333 Sodium Chloride 0.9% 90 ml @ 10 MG/HR 10 mls/hr IV .Q10H [facility] Rx#: [id number] LORazepam Vial 25 mg In 243.499 750 275.333 Dextrose 5% in Water 244 ml @ Per Protocol IV .Q0M [facility] Rx#:[id number] Midazolam HCl 50 mg In 98 84.95 73.5 Sodium Chloride 0.9% 40 ml @ 6 MG/HR 6 mls/hr IV .Q8H20M [facility] Rx#:[id number] Mvi, Adult No.4 with Vit 1093 K 10 ml Trace (Conc-1Ml/ Dose) 1 ml Sodium Acetate 50 meq Potassium Chloride 50 meq Magnesium Sulfate gm 1 gm Calcium Gluconate 3 gm In Amino Acids 5 %/Dextrose 20 % 1 ,000 ml @ 65 mls/hr IV . BY DURATION [facility] Rx#: [id number] Norepinephrine 32 mg In 43.055 118.025 63.493 Sodium Chloride 0.9% 218 ml @ 0.5 MCG/KG/MIN 25. 547 mls/hr IV .Q9H48M [facility] Rx#:[id number] Blood Product 0 Rc As-1 Unit 0 [id number] Output: Urine 1150 665 410 Other: Voiding Method Indwelling Catheter Indwelling Catheter ABP, PAP, CO, CI - Last Documented Arterial Blood Pressure 117/42 - Labs CBC & Chem 7: 08/30/22 05:00 08/30/22 05:00 Labs: Abnormal Lab Results - Last 24 Hours (Table) 08/29/22 08/29/22 08/29/22 Range/Units 12:20 13:29 17:56 WBC 23.3 H (3.8-10.6) k/uL RBC 3.05 L (3.80-5.40) m/uL Hgb 8.5 L D (11.4-16.0) gm/dL Hct 26.8 L (34.0-46.0) % MCHC (31.0-37.0) g/dL RDW 18.2 H (11.5-15.5) % Neutrophils # 20.7 H (1.3-7.7) k/uL Lymphocytes # 0.9 L (1.0-4.8) k/uL Monocytes # 1.3 H (0-1.0) k/uL ABG pH (7.35-7.45) ABG O2 Saturation (94-97) % Sodium (137-145) mmol/L Chloride (98-107) mmol/L Carbon Dioxide (22-30) mmol/L BUN (7-17) mg/dL Creatinine (0.52-1.04) mg/dL Glucose (74-99) mg/dL POC Glucose (mg/dL) 187 H 268 H (70-110) mg/dL Calcium (8.4-10.2) mg/dL Alkaline Phosphatase (38-126) U/L Ammonia (<30) umol/L Total Protein (6.3-8.2) g/dL Albumin (3.5-5.0) g/dL 08/30/22 08/30/22 08/30/22 Range/Units 00:04 05:00 05:00 WBC 20.7 H (3.8-10.6) k/uL RBC 2.96 L (3.80-5.40) m/uL Hgb 8.1 L (11.4-16.0) gm/dL Hct 26.3 L (34.0-46.0) % MCHC 30.8 L (31.0-37.0) g/dL RDW 18.6 H (11.5-15.5) % Neutrophils # 18.6 H (1.3-7.7) k/uL Lymphocytes # 0.6 L (1.0-4.8) k/uL Monocytes # 1.1 H (0-1.0) k/uL ABG pH (7.35-7.45) ABG O2 Saturation (94-97) % Sodium 126 L (137-145) mmol/L Chloride 93 L (98-107) mmol/L Carbon Dioxide 21 L (22-30) mmol/L BUN 81 H (7-17) mg/dL Creatinine 1.62 H (0.52-1.04) mg/dL Glucose 293 H (74-99) mg/dL POC Glucose (mg/dL) 268 H (70-110) mg/dL Calcium 6.9 L (8.4-10.2) mg/dL Alkaline Phosphatase 161 H (38-126) U/L Ammonia (<30) umol/L Total Protein 4.1 L (6.3-8.2) g/dL Albumin 1.6 L (3.5-5.0) g/dL 08/30/22 08/30/22 08/30/22 Range/Units 05:44 08:09 09:12 WBC (3.8-10.6) k/uL RBC (3.80-5.40) m/uL Hgb (11.4-16.0) gm/dL Hct (34.0-46.0) % MCHC (31.0-37.0) g/dL RDW (11.5-15.5) % Neutrophils # (1.3-7.7) k/uL Lymphocytes # (1.0-4.8) k/uL Monocytes # (0-1.0) k/uL ABG pH 7.31 L (7.35-7.45) ABG O2 Saturation 97.1 H (94-97) % Sodium (137-145) mmol/L Chloride (98-107) mmol/L Carbon Dioxide (22-30) mmol/L BUN (7-17) mg/dL Creatinine (0.52-1.04) mg/dL Glucose (74-99) mg/dL POC Glucose (mg/dL) 270 H (70-110) mg/dL Calcium (8.4-10.2) mg/dL Alkaline Phosphatase (38-126) U/L Ammonia 50 H (<30) umol/L Total Protein (6.3-8.2) g/dL Albumin (3.5-5.0) g/dL
[2022-08-30 16:40] LABS: Glucose,Whole Blood 243 mg/dL (70-110)
--- NOTE | 2022-08-30 17:57 | P.PN ---
Subjective Progress Note Date: 08/30/22 I am following up with patient, and per nurse no clinic seizures. She continues to be on IV versed 9mg/kg and IV Ativan 8mg/hr. Today is schedule for 2.5 hour EEG and prior to study since on two IV sedation will turn them off since Versed has been running since 08/25/22 till today and IV Ativan since yesterday and close to 24 hour on IV Ativan will see if any improvement on both sedation and not counting the three antiseizure medication (keppra, Phenytoin and Vimpat). Objective - Vital Signs Vital signs: Vital Signs Temp 95.9 F L 08/30/22 14:30 Pulse 85 08/30/22 16:00 Resp 30 H 08/30/22 16:00 BP 99/41 08/30/22 06:15 Pulse Ox 93 L 08/30/22 16:00 FiO2 45 08/30/22 15:40 Intake & Output 08/29/22 08/30/22 08/30/22 18:59 06:59 18:59 Intake Total 2656.554 3411.475 2230.412 Output Total 1150 665 855 Balance 0376.253 3663.475 1375.412 Weight 146 kg 148.5 kg Intake: IV 2187 1291 1528 0.9% @ KVO 350 360 30 Anidulafungin 100 mg In 100 100 Sodium Chloride 0.9% 100 ml @ 84 mls/hr IVPB DAILY [facility] Rx#:[id number] Ceftolozane/Tazobactam 0. 200 100 75 gm In Sodium Chloride 0.9% 100 ml @ 100 mls/hr IV Q8HR [facility] Rx#:[id number] Fat Emulsion 20% 250 ml 126 105 In Empty Bag 1 bag @ 21 mls/hr IV TuFr [facility] Rx#: [id number] Furosemide 100 mg In 110 10 Sodium Chloride 0.9% 90 ml @ 10 MG/HR 10 mls/hr IV .Q10H [facility] Rx#: [id number] Lacosamide IV 150 mg In 100 100 Sodium Chloride 0.9% 50 ml @ 100 mls/hr IVPB BID [facility] Rx#:[id number] Linezolid 600 mg In 300 300 Dextrose/Water 1 300ml. bag @ 150 mls/hr IVPB Q12H [facility] Rx#:[id number] Mvi, Adult No.4 with Vit 715 780 715 K 10 ml Trace (Conc-1Ml/ Dose) 1 ml Sodium Acetate 50 meq Potassium Chloride 50 meq Magnesium Sulfate gm 1 gm Calcium Gluconate 3 gm In Amino Acids 5 %/Dextrose 20 % 1 ,000 ml @ 65 mls/hr IV . BY DURATION [facility] Rx#: [id number] Phenytoin Sodium Inj 300 50 50 mg In Sodium Chloride 0.9 % 50 ml @ 80 mls/hr IVPB Q12H [facility] Rx#:[id number] Pressure Bag 36 36 33 levETIRAcetam IV 1,000 mg 100 100 In Saline 1 100ml.bag @ 400 mls/hr IVPB Q12HR [facility] Rx#:[id number] Intake, IV Titration 202.131 7417.475 702.412 Amount Furosemide 100 mg In 85 74.5 197.500 Sodium Chloride 0.9% 90 ml @ 10 MG/HR 10 mls/hr IV .Q10H [facility] Rx#: [id number] LORazepam Vial 25 mg In 243.499 750 275.333 Dextrose 5% in Water 244 ml @ Per Protocol IV .Q0M [facility] Rx#:[id number] Midazolam HCl 50 mg In 98 84.95 73.5 Sodium Chloride 0.9% 40 ml @ 6 MG/HR 6 mls/hr IV .Q8H20M [facility] Rx#:[id number] Mvi, Adult No.4 with Vit 1093 K 10 ml Trace (Conc-1Ml/ Dose) 1 ml Sodium Acetate 50 meq Potassium Chloride 50 meq Magnesium Sulfate gm 1 gm Calcium Gluconate 3 gm In Amino Acids 5 %/Dextrose 20 % 1 ,000 ml @ 65 mls/hr IV . BY DURATION [facility] Rx#: [id number] Norepinephrine 32 mg In 43.055 118.025 106.079 Sodium Chloride 0.9% 218 ml @ 0.5 MCG/KG/MIN 25. 547 mls/hr IV .Q9H48M [facility] Rx#:[id number] Phenytoin Sodium Inj 300 50 mg In Sodium Chloride 0.9 % 50 ml @ 80 mls/hr IVPB Q12H [facility] Rx#:[id number] Blood Product 0 Rc As-1 Unit 0 [id number] Output: Urine 1150 665 855 Other: Voiding Method Indwelling Catheter Indwelling Catheter Indwelling Catheter ABP, PAP, CO, CI - Last Documented Arterial Blood Pressure 99/36 - Exam GENERAL: The patient is lying in bed and does not appear in acute distress. LUNG:Trach on ventilator. NEUROLOGICAL: Is on Versed 9mg/hr and IV Ativan 8mg/hr. Exam is very limited. Higher mental function: The patient is comatose. Is GCS 3( E1, VT1, M1). Cranial nerves: I had to manually open her eyes. Primary gaze is midline. The pupils are round, equal and pinpoint. No facial weakness. Not breathing over vent but is set at high setting 30 AC. Motor: The strength is limited but no withdrawal to painful stimuli. No spontanous movement. Sensation: Unable to assess light touch. - Labs CBC & Chem 7: 08/30/22 05:00 08/30/22 05:00 Labs: Abnormal Lab Results - Last 24 Hours (Table) 08/29/22 08/30/22 08/30/22 Range/Units 17:56 00:04 05:00 WBC 20.7 H (3.8-10.6) k/uL RBC 2.96 L (3.80-5.40) m/uL Hgb 8.1 L (11.4-16.0) gm/dL Hct 26.3 L (34.0-46.0) % MCHC 30.8 L (31.0-37.0) g/dL RDW 18.6 H (11.5-15.5) % Neutrophils # 18.6 H (1.3-7.7) k/uL Lymphocytes # 0.6 L (1.0-4.8) k/uL Monocytes # 1.1 H (0-1.0) k/uL ABG pH (7.35-7.45) ABG O2 Saturation (94-97) % Sodium (137-145) mmol/L Chloride (98-107) mmol/L Carbon Dioxide (22-30) mmol/L BUN (7-17) mg/dL Creatinine (0.52-1.04) mg/dL Glucose (74-99) mg/dL POC Glucose (mg/dL) 268 H 268 H (70-110) mg/dL Calcium (8.4-10.2) mg/dL Alkaline Phosphatase (38-126) U/L Ammonia (<30) umol/L Total Protein (6.3-8.2) g/dL Albumin (3.5-5.0) g/dL 08/30/22 08/30/22 08/30/22 Range/Units 05:00 05:44 08:09 WBC (3.8-10.6) k/uL RBC (3.80-5.40) m/uL Hgb (11.4-16.0) gm/dL Hct (34.0-46.0) % MCHC (31.0-37.0) g/dL RDW (11.5-15.5) % Neutrophils # (1.3-7.7) k/uL Lymphocytes # (1.0-4.8) k/uL Monocytes # (0-1.0) k/uL ABG pH 7.31 L (7.35-7.45) ABG O2 Saturation 97.1 H (94-97) % Sodium 126 L (137-145) mmol/L Chloride 93 L (98-107) mmol/L Carbon Dioxide 21 L (22-30) mmol/L BUN 81 H (7-17) mg/dL Creatinine 1.62 H (0.52-1.04) mg/dL Glucose 293 H (74-99) mg/dL POC Glucose (mg/dL) 270 H (70-110) mg/dL Calcium 6.9 L (8.4-10.2) mg/dL Alkaline Phosphatase 161 H (38-126) U/L Ammonia (<30) umol/L Total Protein 4.1 L (6.3-8.2) g/dL Albumin 1.6 L (3.5-5.0) g/dL 08/30/22 08/30/22 08/30/22 Range/Units 09:12 12:15 16:38 WBC (3.8-10.6) k/uL RBC (3.80-5.40) m/uL Hgb (11.4-16.0) gm/dL Hct (34.0-46.0) % MCHC (31.0-37.0) g/dL RDW (11.5-15.5) % Neutrophils # (1.3-7.7) k/uL Lymphocytes # (1.0-4.8) k/uL Monocytes # (0-1.0) k/uL ABG pH (7.35-7.45) ABG O2 Saturation (94-97) % Sodium (137-145) mmol/L Chloride (98-107) mmol/L Carbon Dioxide (22-30) mmol/L BUN (7-17) mg/dL Creatinine (0.52-1.04) mg/dL Glucose (74-99) mg/dL POC Glucose (mg/dL) 270 H 243 H (70-110) mg/dL Calcium (8.4-10.2) mg/dL Alkaline Phosphatase (38-126) U/L Ammonia 50 H (<30) umol/L Total Protein (6.3-8.2) g/dL Albumin (3.5-5.0) g/dL Microbiology - Last 24 Hours (Table) 08/29/22 13:29 Blood Culture - Preliminary Blood No Growth after 24 hours Assessment and Plan Assessment: * 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 * Altered mental status multifactorial as mentioned below. Patient seizure and it seems partial status, septic encephalopathy, medication induced (versed and Ativan). Also has some component of metabolic encephalopathy and hepatic encephalopathy. * Abnormal prolonged 2.5 hours EEG, with evidence of runs of 1 Hz LPDs plus there was lateralized periodic discharges, sharp and slow and poly-sharp and slow waves over the left parietal region with spread more anteriorly. There are also some discharges semi-periodic LPDs over the right posterior quadrants. Ictal/interictal continuum---on Versed IV and 3 other antiepileptic drugs (keppra, Vimpat and Dilantin) * Probable perforated viscus with pneumoperitoneum. * Septicemia, with leukocytosis and blood culture persistently positive with enterococcus faecium. Blood cultures positive as of 08/23/2022. White cells slightly worse today 21,000. * Hepatic encephalopathy with initial elevated ammonia and trending down. * Septic shock requiring high-dose pressors and seems has urinary tract i nfection with urine culture positive for Enterococcus faecalis and Pseudomonas aeruginosa as well as systemic candidiasis * Atrial fibrillation on eliquis (which has hx of afib) , currently on hold. * Acute on chronic hypoxemic respiratory failure secondary to diastolic congestive heart failure requiring intubation mechanical ventilation * Acute on chronic kidney disease * History of TIAs/stroke * History of coronary artery disease with stent * Hypertension * Hyperlipidemia * Diabetes mellitus * Anemia * Hypocalcemia Plan: * Clinically it appears partial status has resolved. No focal twitches noticed at this time. * Patient has multiple 2.5 hour EEG's and routine EEG's. Most recent 2.5 hour EEG on 08/29/2022 reported as: These findings indicate presence of active epileptiform focus involving the left parietal occipital region. An additional epileptiform foci more anteriorly in the left hemisphere and or or extend foci involving the right posterior quadrant are not necessarily included. Per suppression pattern indicating severe diffuse cerebral dysfunction as may be seen in anoxic or toxic encephalopathy. * Patient already on high dose Vimpat 150 mg twice a day, Keppra 1000 mg twice a day (both of them adjusted for current renal functions). Also on Dilantin 3 00mg every 12 hours. On Versed 9 mg per hour and been on Versed since 08/25/22 and IV Ativan 8mg/hr since yesterday. Once been on Ativan close to 24 hours will turn off both Atian and Versed and will get repeat 2.5 hour EEG and assess if any improvement. * It Appears the patient was not transferred last week to a tertiary Center for escalation of care for her seizure for 24 hour EEG: It appears it was felt poor prognosis and no one will accept her condition. * Cannot give Depakote because of hyperammonemia. Her Keppra level on 08/26/22: 68.9 (normal is 3-60). * Continue Ativan 1-2 mg every 4 hours when necessary seizure. * Repeat CT head 08/24/2022, which did not reveal any acute intracranial process. However there is possible bilateral mastoiditis and middle ear infections spread. Correlate clinically. Patchy paranasal sinus disease. I personally reviewed CT head, and there is evidence of air-fluid level in the left maxillary sinus. Agree with evidence of possible bilateral mastoiditis and fluid in the middle ear. I discussed with PCP about possibility of lumbar puncture. ID is also on board. Patient currently on Eraxis, Zerbaxa, daptomycin. Per ID, patient is already covered well for meningitis. * Patient's initial Ammonia was 214. Latest was 50. Patient on lactulose. * CT abdomen revealed possibility of perforated viscus. Surgery on board. Patient was considered not a candidate for surgery because of hemodynamic instability. * Patient is on high dose pressors * Hypocalcemia--improving, Recommend appropriate treatment as per IM and critical care. * We'll defer the rest of medical management to primary and ICU team * The patient condition is very critical. Prognosis appears very poor at this time. * I had length discussion with the patient's and daughter who are at bedside. I also discussed with primary team. Also discussed with nurse. UPDATE: I was notified by reading epileptitologist that 2.5 hour EEG is unchanged from yesterday even off sedation or with sedation and patient continues to be in status. From neurological perspective patient has super-refractory status epileptic even though was on IV Versed since 08/25/22 and IV Ativan for about 24 hours not including 3 drugs (Keppra, Dilantin and Vimpat). I feel the use of IV Versed and Ativan even though has been together for 24 hours has not shown any benefit. Her condition is very poor. Therefore, I have updated the patient's daughter via phone and she would like the sedation (Ativan or Versed drip to be held) until clinical seizure and her father can witness them. But if continues to clinically seizure will like to resume IV Sedation. The plan is also discussed with ICU attending and primary team. Will continue to follow. Time with Patient: Less than 30
[2022-08-30] MEDS: INSULIN DETEMIR (LEVEMIR) 100 UNIT/ML SYR SQ SCH (18:37)
[2022-08-30] MEDS: VASOPRESSIN 60 UNIT in SODIUM CHLORIDE 0.9% 150 ML IV SCH (19:43)
[2022-08-30 19:53] LABS: Glucose,Whole Blood 207 mg/dL (70-110)
[2022-08-30 23:53] LABS: Glucose,Whole Blood 154 mg/dL (70-110)
[2022-08-31] MEDS: INSULIN ASPART (NovoLOG) 100 UNIT/ML VIAL SQ SCH ×6 (00:08→20:54)
[2022-08-31] MEDS: PHENYTOIN SODIUM INJ 300 MG in SODIUM CHLORIDE 0.9% 50 ML IVPB SCH ×2 (00:08→14:01)
[2022-08-31] MEDS: methylPREDNISolone SOD SUCCI 40 MG/ML 1 ML VIAL IV SCH ×3 (00:08→16:19)
[2022-08-31] MEDS: CEFTOLOZANE/TAZOBACTAM 0.75 GM in SODIUM CHLORIDE 0.9% 100 ML IV SCH ×3 (00:09→16:10)
[2022-08-31] MEDS: NOREPINEPHRINE 32 MG in SODIUM CHLORIDE 0.9% 218 ML IV SCH ×3 (00:09→21:16)
[2022-08-31] MEDS: LINEZOLID 600 MG in DEXTROSE/WATER 1 300ML.BAG IVPB SCH ×2 (01:50→12:23)
--- NOTE | 2022-08-31 01:53 | EEG ---
ELECTROENCEPHALOGRAM REPORT ELECTROENCEPHALOGRAM (EEG) REPORT: TECHNIQUE: This is a report from a prolonged 2.5-hour inpatient digital video EEG performed using the 10/20 international electrode placement system. FINDINGS: Recording start time: 08/30/2022 at 11:45 a.m. Recording end time: 08/30/2022 at 2:20 p.m. EVENTS: During the course of this 2.5 hour video EEG recording, numerous electrographic partial seizures were recorded. The onset of these with left posterior quadrant, left occipital, however, these had a broad field of spread to the more anterior left hemispheric regions and also to the posterior right hemispheric regions. Compared to the previous day of seizures, these had a larger field of spread. The patient's seizures consisted of 2 hertz poly high-amplitude polyspike first centered over the left posterior quadrant. Phase reversals were seen at P3 also to C3. Electrical frequencies were slightly slowed to 1 to 1.5 hertz polyspike and slow waves and then frequencies slowed to 1 hertz spike and slow waves. This EEG also demonstrated a burst/suppression pattern. Between the burst which consisted of runs of polyspike and spike and slow wave discharge to the left posterior quadrants, areas of suppression were seen lasting up to 4 minutes. Note that the events that are considered seizures here include the bursts that lasted more than 10 seconds, which was the majority of them. Given the amount of seizures recorded in this recording, the patient can be considered to be in partial status epilepticus. BACKGROUND: A sustained posterior dominant rhythm was not seen. SLEEP: Distinctive sleep stages not seen. Examples of seizures include, but not limited to 12:08:37, 12:09:34, 12:10:04, 12:12:22, 12:13:33. IMPRESSION: Markedly abnormal 2.5 hour video EEG. This EEG demonstrates the patient to be in partial status epilepticus originating from the left posterior quadrants. Also, a burst suppression pattern was seen. The burst suppression pattern indicates severe diffuse cerebral dysfunction which may in part be due to medication effect. Based on the maximal amplitude of the ictal discharges, these findings indicate the presence of an epileptiform focus, more than 1 epileptiform focus cannot be excluded involving the left parietal region. The left parieto-occipital region, greater involvement of the left hemisphere for an additional independent epileptiform focus involving the right posterior quadrants is not necessarily excluded. These findings were called to the neurologist taking care of the patient at 3:20 p.m. on 08/30/2022. CELESTINO / RANDY: [id number] /
[2022-08-31 04:51] LABS: Glucose,Whole Blood 140 mg/dL (70-110)
[2022-08-31 05:37] LABS: Albumin 1.7 g/dL (3.5-5.0); Calcium 7.2 mg/dL (8.4-10.2); Magnesium 2.2 mg/dL (1.6-2.3); Phosphorus 3.4 mg/dL (2.5-4.5); Potassium 4.4 mmol/L (3.5-5.1); Total Bilirubin 0.3 mg/dL (0.2-1.3); Total Protein 4.3 g/dL (6.3-8.2)
[2022-08-31 05:46] LABS: ABG Base Excess -3.7 mmol/L; ABG HCO3 23 mmol/L (21-25); ABG Oxygen Saturation 95.9 % (94-97); ABG PCO2 50 mmHg (35-45); ABG PH 7.28 (7.35-7.45); ABG PO2 101 mmHg (83-108); ABG TCO2 25 mmol/L (19-24); Allen Test Performed? Yes
[2022-08-31] MEDS: FUROSEMIDE 100 MG in SODIUM CHLORIDE 0.9% 90 ML IV SCH ×3 (06:19→21:40)
[2022-08-31] MEDS: BUDESONIDE 1 MG/2 ML NEBU INHALATION SCH ×2 (07:47→20:04)
[2022-08-31] MEDS: FORMOTEROL FUMARATE 20 MCG/2 ML NEBU INHALATION SCH ×2 (07:47→20:04)
[2022-08-31] MEDS: ALBUTEROL NEBULIZED 2.5 MG/3 ML INHALATION SCH ×4 (07:47→20:04)
[2022-08-31] MEDS: IPRATROPIUM 0.5 MG/2.5 ML NEBU INHALATION SCH ×4 (07:48→20:04)
--- NOTE | 2022-08-31 09:18 | XR ---
EXAMINATION TYPE: XR chest 1V portable DATE OF EXAM: 08/31/2022 Comparison: 08/30/2022 Clinical History: 87-year-old female ICU follow-up, mechanical ventilation Findings: ACDF hardware. Tracheostomy cannula. Left subclavian CVC tip in the region of the lower SVC. NG tube courses below the diaphragm. The patient is rotated toward the left limiting the exam. Heart appears borderline enlarged. Diffuse interstitial opacity may be increased. Right greater than left bibasilar opacities persist. Query joint laxity or pseudosubluxation of the glenohumeral joints. Impression: 1. Rotated exam. Correlate for developing mild pulmonary vascular congestion. 2. Ongoing right greater than left bibasilar consolidation/atelectasis and small effusions.
--- NOTE | 2022-08-31 09:50 | P.PN ---
Subjective Progress Note Date: 08/31/22 H&P Date: 08/09/22 Chief Complaint: Shortness of breath,Altered mental statConstipation, syncope, hyperglycemia This is a pleasant 87-year-old female with past medical history of CAD, SC, stent placement, aortic stenosis ,chronic hypoxic respiratory failure,on 2 L nasal cannula ,Covid 06/22,COPD, former nicotine dependence, obstructive sleep apnea ,CVA/TIA, diabetes mellitus, hypertension, hyperlipidemia, hypothyroidism, recurrent UTIs,CKD III, urinary retention, anemia, bilateral peripheral neuropathy, gait dysfunction,utilizing walker, falls, morbid obesity-BMI 39.9 and multiple other medical issues brought in via ambulance, on BiPAP to the ER for change in level of consciousness, syncope, nausea, vomiting, hyperglycemia, constipation-on [place], shortness of breath, recently discharged from [facility] subacute rehab on 08/06/2022. Information being obtained from chart and daughter at bedside. Daughter reports they are unsure of her last bowel movement, possibly , 08/03. [facility] documented large bowel movement on 08/04 and 08/05. Reports yesterday blood sugars were running high in the 400s, patient developed nausea and vomiting, change in sensorium, passed out while on the toilet. Reports patient "coughs all the time, but has COPD", no knowledge of fevers, denies chills. Denies chest pain, palpitations, positive shortness of breath. Developed hypotension in the ER in addition to emesis, received fluid bolus .Chest x-ray reported right basilar infiltrate with persistent small right effusion, no overt failure. EKG reported sinus rhythm, troponin negative 1. KUB reported marked gastric distention, additional small bowel loops dilated, possibly retained debris within the rectum and sigmoid colon. 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 NG tube placed in the ER with 1200 MLS bilious output reported overnight. D-dimer elevated 4.73, CT angio chest reported no evidence of pulmonary embolism,more consolidation changes in the right lung base, rule out aspiration. ProBNP 426. UA reported many WBC clumps, 165 WBCs, large leukocytes, negative nitrates, culture pending. Afebrile, on admission temperature 96.7, currently 98.8. WBC 14.3. lactic acid 3.5, repeat level pending. Hemoglobin 10.2, platelets 4:15, a I's within normal limits, BUN 40, creatinine 1.5. BiPAP weaned off, currently requiring 6 L nasal cannula O2 to maintain O2 sats in the low 90s. 08/10/22 Continued to decline throughout the night requiring ICU admission, maintained on vasopressin, Levophed and bicarb drips. Received fluid boluses throughout the night. Lactic acid decreased to 2.1. Low urine output on Lasix IV push. BUN 81, creatinine 2.68. Hyperkalemic, received calcium, insulin, D50, sodium bicarbonate. Chest x-ray reporting stable bilateral lower lobe infiltrate and small effusion. Afebrile, T-max 99.7. Continues on Levaquin, WBC normalized today. Cefepime added to antibiotic regimen today. Preliminary Urine cultures reporting group D enterococcus 50-100,000 colonies and gram-negative bacilli 10 and 49,000 colonies. 07/03 Blood cultures reporting GNB. Hemoglobin 8.2, platelets 311. 08/11/2022 Vent dependent, FiO2 60%/+5 of PEEP. Chest x-ray reports stable, no change in bibasilar opacities, pleural effusion unchanged. Continues on the Levophed and vasopressin drips. Febrile to the night, T-max 102.4, WBC increased to 12.2. Lactic acid trended up during the night, received fluid boluses, currently at 3.2. Developed atrial fibrillation with RVR, bolused with amiodarone and currently on amiodarone drip. Urine culture reporting enterococcus faecalis and Pseudomonas aeruginosa.Films reviewed by general surgery, reporting sigmoid volvulus. Recommending conservative management. BUN 79, creatinine 2.74. Hyperglycemic. Hemoglobin 8.6, platelets 349. Anticoagulation remains on hold. 08/21/2022 remains vent dependent, FiO2 50%/+5 of PEEP. Maintained on high doses of levophed, vasopressin. Amiodarone and bicarb drips continue. Receiving IV albumin to be followed by Lasix. Worsening renal function. Staff reports no urine output 24 hours. Bicarb 16, BUN 76, creatinine 1.73. Repeat CT of abdomen and pelvis completed yesterday, reporting moderate volume pneumo peritoneum, suspected perforation of distal colonic bowel, extensive distal bowel pneumatosis. Surgery discussed findings with family, high risk for surgical intervention. Family decided against surgical intervention,but to continue with nonsurgical care. T-max 100.6. Maintained on Zerbaxa, Eraxis, daptomycin .Seizure-like activity reported yesterday afternoon, placed on Keppra, reoccurred in the chief substation operator hours 2. Brain CT reported no acute intracranial process .EEG completed, results pending. 08/22/2022 vent dependent, 40% FiO2, +5 of PEEP. Staff reports patient desats quickly with turning. Chest x-ray reporting bibasilar atelectasis, consolidation, minimally increased, possible tiny right basilar pleural effusion. Continues on high doses of pressors, digits dusky. Maintained on bicarb drip. Telemetry atrial fibrillation, fast ventricular rate on amiodarone drip. Remains on antibiotics as per infectious disease.BUN 83, creatinine 1.79. T-max 102, WBC decreased, 16.5 08/23/2022 FiO2 50%/+5 of PEEP. Chest x-ray reported no significant change .Continues on pressor support. Maintained on amiodarone drip, heart rates currently in the 1 teens to 120s. Continues on daptomycin, Zerbexa and Eraxis.T-max 100.9, WBC 15.3. BUN 83, creatinine 2.13. WBC decreased to 15.3. Receiving IV albumin, Albumin currently 1.6. Ionized calcium 3.4, receiving supplementation. 08/24/2022 continues in A. fib, heart rates 110 to 130s on amiodarone drip. Seizure activity yesterday reported with facial twitching lasting approximately half an hour EEG performed-reported abnormal 2-1/2 hour EEG suggesting epileptiform focus involving midline occipital parietal region. Vimpat and Keppra doses increased. Continue to have seizure activity today, right-sided face twitching, trembling of arm reported, repeat EEG in progress. Versed drip initiated. Brain Ct pending. Maximized on both norepi and vasopressin. Digits dusky, declining comfort care at this time. Continues on bicarb drip. Remains vent dependent on FiO2 50%/+5 of PEEP. Now trach and PEG are being considered. 08/25/2022 maximized on pressors, levophed and vasopressin. Mechanical ventilator-dependent, FiO2 50%/+5 of PEEP. Chest x-ray reporting worsening bibasilar consolidation ,bilateral pneumonia. Family meeting via phone this morning with Dr. Hartman PCP, regarding poor prognosis, futile condition. Scheduled for tracheostomy and PEG-consent pending. Continues on amiodarone, bicarb drips. TPN. Continues to have seizure activity, on Versed drip, Dilantin added to med regimen. Afebrile, worsening WBC, 21.7, potassium 3, receiving supplementation. BUN 79, creatinine 1.87. Ionized calcium 3.4, supplemented. 08/28/2022 Remains vent dependent, FiO2 45%/+10 of PEEP status post tracheostomy 08/25. Nebulized bronchodilators, IV steroids. Receiving TPN/lipids. Requiring insulin drip for hyperglycemia, blood sugars currently ranging 160s to 170s.Ongoing seizures, continues on Versed drip, Dilantin, Keppra, Vimpat. EEG repeated yesterday, reported severely abnormal, suppression worsening-seen with severe anoxic or toxic metabolic encephalopathy, nonconvulsive generalized status epilepticus cannot be ruled out. Maintained on vasopressin, Levophed and Lasix drips. Antibiotics as per infectious disease. Afebrile, WBC 22.4. 08/29/2022 remains vent dependent, FiO2 45%/+10 of PEEP. Chest x-ray reporting bilateral infiltrates and pleural effusion, pneumonia versus CHF. PEG tube unable to be placed, please refer to the surgeon's note.Maintained on vasopressin, Levophed Lasix, Versed and Ativan drips. Repeat EEG pending. Continues on antibiotics of Eraxis, Zyvox and Zerbaxa. Afebrile, WBC 22.6. Hemoglobin 6.5, receiving one unit of packed RBCs. Platelets 255. 08/30/2022 remains vent dependent, FiO2 45%/+10 of PEEP. Chest x-ray reporting stable bilateral infiltrates and pleural effusion. Continues on TPN, Lasix drip, norepinephrine, vasopressin. Maintained on Eraxis, Zyvox and Zerbaxa. Afebrile, WBC 20.7. Ammonia 50.EEG yesterday -refer to neurology report.Versed and Ativan drips turned off, 2 hour EEG recently started. Received one unit of packed RBCs yesterday with current hemoglobin 8.1, platelets 221. Sodium decreased to 126. Bicarb 21, BUN 81, creatinine 1.62. Albumin 1.6. Nephrology discussing renal replacement therapy secondary to fluid volume overload if family continues with aggressive therapy. 08/31/22 continues on vasopressor support, antifungal/antibiotics, oral antiarrhythmics, TPN, IV steroids, nebulized bronchodilators, IV diuretics, seizure management including Versed and Ativan drips,lactulose, mechanical ventilation with FiO2 45% status post 10 of PEEP. Chest x-ray reporting potentially developing mild pulmonary vascular congestion, ongoing right greater than left bibasilar consolidation/atelectasis and small effusions. Maintained on Lasix drip, severe volume overload. Nephrology discussing potential SLED as requesting to continue with current aggressive treatment at this time. Objective - Vital Signs Vital signs: Vital Signs Temp 97.0 F L 08/31/22 04:00 Pulse 90 08/31/22 08:10 Resp 30 H 08/31/22 08:10 BP 101/42 08/31/22 07:00 Pulse Ox 97 08/31/22 07:00 FiO2 45 08/31/22 07:48 Intake & Output 08/30/22 08/31/22 08/31/22 18:59 06:59 18:59 Intake Total 2230.412 571.095 3 Output Total 1355 770 50 Balance 875.412 -198.905 -47 Weight 149 kg 149 kg Intake: IV 1528 429 3 0.9% @ KVO 30 Anidulafungin 100 mg In 100 Sodium Chloride 0.9% 100 ml @ 84 mls/hr IVPB DAILY [facility] Rx#:[id number] Ceftolozane/Tazobactam 0. 100 75 gm In Sodium Chloride 0.9% 100 ml @ 100 mls/hr IV Q8HR [facility] Rx#:[id number] Lacosamide IV 150 mg In 100 Sodium Chloride 0.9% 50 ml @ 100 mls/hr IVPB BID [facility] Rx#:[id number] Linezolid 600 mg In 300 Dextrose/Water 1 300ml. bag @ 150 mls/hr IVPB Q12H [facility] Rx#:[id number] Mvi, Adult No.4 with Vit 715 390 K 10 ml Trace (Conc-1Ml/ Dose) 1 ml Sodium Acetate 50 meq Potassium Chloride 50 meq Magnesium Sulfate gm 1 gm Calcium Gluconate 3 gm In Amino Acids 5 %/Dextrose 20 % 1 ,000 ml @ 65 mls/hr IV . BY DURATION [facility] Rx#: [id number] Phenytoin Sodium Inj 300 50 mg In Sodium Chloride 0.9 % 50 ml @ 80 mls/hr IVPB Q12H COUNTS INCLUDE 234 BEDS AT [facility] Rx#:[id number] Pressure Bag 33 39 3 levETIRAcetam IV 1,000 mg 100 In Saline 1 100ml.bag @ 400 mls/hr IVPB Q12HR [facility] Rx#:[id number] Intake, IV Titration 702.412 142.095 Amount Furosemide 100 mg In 197.500 Sodium Chloride 0.9% 90 ml @ 10 MG/HR 10 mls/hr IV .Q10H [facility] Rx#: [id number] LORazepam Vial 25 mg In 275.333 Dextrose 5% in Water 244 ml @ Per Protocol IV .Q0M COUNTS INCLUDE 234 BEDS AT THE [facility] Rx#:[id number] Midazolam HCl 50 mg In 73.5 Sodium Chloride 0.9% 40 ml @ 6 MG/HR 6 mls/hr IV .Q8H20M COUNTS INCLUDE 234 BEDS AT THE [facility] Rx#:[id number] Norepinephrine 32 mg In 106.079 142.095 Sodium Chloride 0.9% 218 ml @ 0.5 MCG/KG/MIN 25. 547 mls/hr IV .Q9H48M COUNTS INCLUDE 234 BEDS AT THE [facility] Rx#:[id number] Phenytoin Sodium Inj 300 50 mg In Sodium Chloride 0.9 % 50 ml @ 80 mls/hr IVPB Q12H COUNTS INCLUDE 234 BEDS AT THE [facility] Rx#:[id number] Output: Urine 855 770 50 Stool 500 Other: Voiding Method Indwelling Catheter Indwelling Catheter ABP, PAP, CO, CI - Last Documented Arterial Blood Pressure 79/52 - Exam GENERAL EXAM: on mechanical ventilation/tracheostomy. HEENT: Normocephalic. NECK: supple, unable to assess for JVD. LUNGS: Equal air entry, diminished, scattered rhonchi CV: S1 and S2 normal with no audible murmur, irregular rhythm. ABDOMEN:Distended SKIN: Edematous CENTRAL NERVOUS SYSTEM: Unable to assess, on mechanical ventilation EXTREMITIES: Positive peripheral edema, dusky digits. - Labs CBC & Chem 7: 08/31/22 10:20 08/31/22 05:00 Labs: Abnormal Lab Results - Last 24 Hours (Table) 08/30/22 08/30/22 08/30/22 Range/Units 09:12 12:15 16:38 ABG pH (7.35-7.45) ABG pCO2 (35-45) mmHg ABG Total CO2 (19-24) mmol/L Sodium (137-145) mmol/L Chloride (98-107) mmol/L BUN (7-17) mg/dL Creatinine (0.52-1.04) mg/dL Glucose (74-99) mg/dL POC Glucose (mg/dL) 270 H 243 H (70-110) mg/dL Calcium (8.4-10.2) mg/dL AST (14-36) U/L Alkaline Phosphatase (38-126) U/L Ammonia 50 H (<30) umol/L Total Protein (6.3-8.2) g/dL Albumin (3.5-5.0) g/dL 08/30/22 08/30/22 08/31/22 Range/Units 19:51 23:52 04:49 ABG pH (7.35-7.45) ABG pCO2 (35-45) mmHg ABG Total CO2 (19-24) mmol/L Sodium (137-145) mmol/L Chloride (98-107) mmol/L BUN (7-17) mg/dL Creatinine (0.52-1.04) mg/dL Glucose (74-99) mg/dL POC Glucose (mg/dL) 207 H 154 H 140 H (70-110) mg/dL Calcium (8.4-10.2) mg/dL AST (14-36) U/L Alkaline Phosphatase (38-126) U/L Ammonia (<30) umol/L Total Protein (6.3-8.2) g/dL Albumin (3.5-5.0) g/dL 08/31/22 08/31/22 Range/Units 05:00 05:18 ABG pH 7.28 L (7.35-7.45) ABG pCO2 50 H (35-45) mmHg ABG Total CO2 25 H (19-24) mmol/L Sodium 127 L (137-145) mmol/L Chloride 95 L (98-107) mmol/L BUN 81 H (7-17) mg/dL Creatinine 1.73 H (0.52-1.04) mg/dL Glucose 132 H (74-99) mg/dL POC Glucose (mg/dL) (70-110) mg/dL Calcium 7.2 L (8.4-10.2) mg/dL AST 38 H (14-36) U/L Alkaline Phosphatase 178 H (38-126) U/L Ammonia (<30) umol/L Total Protein 4.3 L (6.3-8.2) g/dL Albumin 1.7 L (3.5-5.0) g/dL Microbiology - Last 24 Hours (Table) 08/29/22 13:29 Blood Culture - Preliminary Blood No Growth after 24 hours Assessment and Plan Assessment: Sepsis, septic shock with multisystem organ failure secondary to acute enterococcus faecalis and Pseudomonas aeruginosa UTI, with acute VRE bacteremia ,abdominal sepsis. Systemic candidiasis. Hypotension, severe, secondary to the above, pressor dependent Seizure activity, workup in progress, neurology following Acute on chronic hypoxic respiratory failure, ventilator dependent, secondary to all the above, status post tracheostomy 08/25 Volume overload Hyperammonium Chronic changes of the right lower lobe and small right pleural effusion as per pulmonary Acute on CKD III, secondary to ATN related to the above Persistent Atrial fibrillation with RVR, status post amiodarone drip, In a patient with history of chronic atrial fibrillation. Metabolic acidosis, on bicarb drip Abdominal pain, constipation, last bowel movement reported 08/05.Films reviewed by general surgery, reporting sigmoid volvulus. Continued clinical worsening;Probable perforated viscus with pneumoperitoneum reported per CT on 08/20/2022. Leukocytosis Diabetes mellitus, family reports hyperglycemic at home, controlled IP, A1c 6. Recent COVID-19 infection, 06/22 COPD, history of Valvular heart disease, moderate aortic stenosis, preserved LV function History of CHF, diastolic dysfunction Chronic anemia Generalized weakness, gait dysfunction, multiple falls recently reported, recently discharged from [facility] subacute rehab. 08/06/22. History of CVA, TIA History of Hypertension Hyperlipidemia Hypothyroidism Morbid obesity, BMI 56.7 No code, no CPR, no reintubation Plan: Continue on current medication regime ,monitoring and symptomatic treatment. Family continues to be updated routinely.Last week, neurologist, Dr. Abrams recommended transfer on both 08/24, 08/25 to higher level care for continuous EEG monitoring, related to epileptiform EEG. PCP, Dr. Hartman at bedside discussed transfer to a tertiary care center with , and daughter on a couple different occasions. They declined transfer. Numerous times, discussed removing pressors, her digits of both hands and feet dusky. is adamant that these medications/pressors are not discontinued. Nephrology updated this morning, discussing renal replacement therapy/SLED as wishes to continue with aggressive therapy. PCP, Dr. Montoya at bedside, discussed with , patient remains hemodynamically unstable-may not tolerate renal replacement therapy, even with vasopressor support. Reinforced the effects of the vasopressors, including risk of losing digits. states, he "needs to try the dialysis,to know that he has tried everything" and is planning on probably taking patient off the mechanical ventilator when the family can be there without having to miss work, possibly this weekend. Support given. Multiple consults following/ICU management as per accounts officer. Prognosis poor given multiple complex medical issues. The impression and plan of care has been dictated as directed. : I performed a history and examination of this patient, discussed the same with the dictator. I agree with the dictator's note ,documented as a scribe. Any additional findings or plans will be noted.
--- NOTE | 2022-08-31 10:05 | P.PN ---
Subjective Patient is seen in follow-up for acute kidney injury. Renal function stable. Urine output 50-60 mL per hour. Intubated. Currently on Levophed and vasopressin. On Lasix drip. Receiving TPN. Also on Versed and Ativan drip for seizures. present at bedside. Vital signs - on vasopressor support. General: Resting in bed. HEENT: Intubated. LUNGS: Breath sounds decreased. HEART: Regular rate and rhythm. ABDOMEN: Distention noted. EXTREMITITES: 2+ edema. Objective - Vital Signs Vital signs: Vital Signs Temp 97.0 F L 08/31/22 04:00 Pulse 90 08/31/22 08:10 Resp 30 H 08/31/22 08:10 BP 101/42 08/31/22 07:00 Pulse Ox 97 08/31/22 07:00 FiO2 45 08/31/22 07:48 Intake & Output 08/30/22 08/31/22 08/31/22 18:59 06:59 18:59 Intake Total 2230.412 571.095 3 Output Total 1355 770 50 Balance 875.412 -198.905 -47 Weight 149 kg 149 kg Intake: IV 1528 429 3 0.9% @ KVO 30 Anidulafungin 100 mg In 100 Sodium Chloride 0.9% 100 ml @ 84 mls/hr IVPB DAILY [facility] Rx#:[id number] Ceftolozane/Tazobactam 0. 100 75 gm In Sodium Chloride 0.9% 100 ml @ 100 mls/hr IV Q8HR [facility] Rx#:[id number] Lacosamide IV 150 mg In 100 Sodium Chloride 0.9% 50 ml @ 100 mls/hr IVPB BID [facility] Rx#:[id number] Linezolid 600 mg In 300 Dextrose/Water 1 300ml. bag @ 150 mls/hr IVPB Q12H [facility] Rx#:[id number] Mvi, Adult No.4 with Vit 715 390 K 10 ml Trace (Conc-1Ml/ Dose) 1 ml Sodium Acetate 50 meq Potassium Chloride 50 meq Magnesium Sulfate gm 1 gm Calcium Gluconate 3 gm In Amino Acids 5 %/Dextrose 20 % 1 ,000 ml @ 65 mls/hr IV . BY DURATION [facility] Rx#: [id number] Phenytoin Sodium Inj 300 50 mg In Sodium Chloride 0.9 % 50 ml @ 80 mls/hr IVPB Q12H [facility] Rx#:[id number] Pressure Bag 33 39 3 levETIRAcetam IV 1,000 mg 100 In Saline 1 100ml.bag @ 400 mls/hr IVPB Q12HR [facility] Rx#:[id number] Intake, IV Titration 702.412 142.095 Amount Furosemide 100 mg In 197.500 Sodium Chloride 0.9% 90 ml @ 10 MG/HR 10 mls/hr IV .Q10H [facility] Rx#: [id number] LORazepam Vial 25 mg In 275.333 Dextrose 5% in Water 244 ml @ Per Protocol IV .Q0M [facility] Rx#:[id number] Midazolam HCl 50 mg In 73.5 Sodium Chloride 0.9% 40 ml @ 6 MG/HR 6 mls/hr IV .Q8H20M [facility] Rx#:[id number] Norepinephrine 32 mg In 106.079 142.095 Sodium Chloride 0.9% 218 ml @ 0.5 MCG/KG/MIN 25. 547 mls/hr IV .Q9H48M [facility] Rx#:[id number] Phenytoin Sodium Inj 300 50 mg In Sodium Chloride 0.9 % 50 ml @ 80 mls/hr IVPB Q12H [facility] Rx#:[id number] Output: Urine 855 770 50 Stool 500 Other: Voiding Method Indwelling Catheter Indwelling Catheter ABP, PAP, CO, CI - Last Documented Arterial Blood Pressure 79/52 - Labs CBC & Chem 7: 08/30/22 05:00 08/31/22 05:00 Labs: Abnormal Lab Results - Last 24 Hours (Table) 08/30/22 08/30/22 08/30/22 Range/Units 12:15 16:38 19:51 ABG pH (7.35-7.45) ABG pCO2 (35-45) mmHg ABG Total CO2 (19-24) mmol/L Sodium (137-145) mmol/L Chloride (98-107) mmol/L BUN (7-17) mg/dL Creatinine (0.52-1.04) mg/dL Glucose (74-99) mg/dL POC Glucose (mg/dL) 270 H 243 H 207 H (70-110) mg/dL Calcium (8.4-10.2) mg/dL AST (14-36) U/L Alkaline Phosphatase (38-126) U/L Total Protein (6.3-8.2) g/dL Albumin (3.5-5.0) g/dL 08/30/22 08/31/22 08/31/22 Range/Units 23:52 04:49 05:00 ABG pH (7.35-7.45) ABG pCO2 (35-45) mmHg ABG Total CO2 (19-24) mmol/L Sodium 127 L (137-145) mmol/L Chloride 95 L (98-107) mmol/L BUN 81 H (7-17) mg/dL Creatinine 1.73 H (0.52-1.04) mg/dL Glucose 132 H (74-99) mg/dL POC Glucose (mg/dL) 154 H 140 H (70-110) mg/dL Calcium 7.2 L (8.4-10.2) mg/dL AST 38 H (14-36) U/L Alkaline Phosphatase 178 H (38-126) U/L Total Protein 4.3 L (6.3-8.2) g/dL Albumin 1.7 L (3.5-5.0) g/dL 08/31/22 Range/Units 05:18 ABG pH 7.28 L (7.35-7.45) ABG pCO2 50 H (35-45) mmHg ABG Total CO2 25 H (19-24) mmol/L Sodium (137-145) mmol/L Chloride (98-107) mmol/L BUN (7-17) mg/dL Creatinine (0.52-1.04) mg/dL Glucose (74-99) mg/dL POC Glucose (mg/dL) (70-110) mg/dL Calcium (8.4-10.2) mg/dL AST (14-36) U/L Alkaline Phosphatase (38-126) U/L Total Protein (6.3-8.2) g/dL Albumin (3.5-5.0) g/dL Microbiology - Last 24 Hours (Table) 08/29/22 13:29 Blood Culture - Preliminary Blood No Growth after 24 hours Assessment and Plan Plan: Assessment: 1. Acute kidney injury secondary to ATN secondary to septic shock. Baseline creatinine near 0.8 from June 2022 - peaked at 2.77 this admission - stable at 1.73 today. Urine output 50-100 mL an hour. No hydronephrosis noted on CAT scan. 2. Septic shock secondary to UTI, fungemia and bacteremia. CAT scan done in 08/20/2022 showed pneumoperitoneum. On antibiotics/antifungal and vasopressor support. 3. Metabolic acidosis secondary to acute kidney injury. s/p bicarb drip. 4. Hypokalemia from poor intake and diuresis. Also intracellular shifting from IV bicarb. Replaced. Improved. 5. Acute hypoxic respiratory failure. 6. A. fib with RVR. On po amiodarone. Cardiology following. 8. Hyponatremia secondary to acute kidney injury. Hypervolemic. 9. Hypocalcemia secondary to acute kidney injury. Improved. On vitamin D. 10. Severe volume overload. Plan: Maintain Lasix drip. Maintain TPN. Wean FiO2 and vasopressors. Avoid nephrotoxins. Continue to monitor renal function and urine output. Prognosis poor. The family wishes to continue with aggressive therapy. Renal replacement therapy has been discussed with the family. I discussed with them that the patient is hemodynamically unstable but may be able to attempt SLED due to severe volume overload. Family hasn't made up their mind regarding renal replacement therapy at this time.
[2022-08-31 10:45] LABS: Anisocytosis Slight; HCT 27.5 % (34.0-46.0); HGB 8.8 gm/dL (11.4-16.0); Hypochromasia Moderate; MCH 28.1 pg (25.0-35.0); MCHC 31.9 g/dL (31.0-37.0); MCV 88.3 fL (80.0-100.0); Mean Platelet Volume 9.5; Platelet Count 237 k/uL (150-450); Poikilocytosis Moderate; RBC 3.11 m/uL (3.80-5.40); RDW 19.2 % (11.5-15.5); WBC 21.3 k/uL (3.8-10.6)
[2022-08-31] MEDS: levETIRAcetam IV 1,000 MG in SALINE 1 100ML.BAG IVPB SCH ×2 (11:01→20:53)
[2022-08-31] MEDS: ANIDULAFUNGIN 100 MG in SODIUM CHLORIDE 0.9% 100 ML IVPB SCH (11:34)
[2022-08-31] MEDS: 1: MVI, ADULT NO.4 WITH VIT K 10 ML, TRACE (CONC-1ML/DOSE) 1 ML, SODIUM ACETATE 50 MEQ, IV SCH ×8 (12:02)
[2022-08-31] MEDS: VASOPRESSIN 60 UNIT in SODIUM CHLORIDE 0.9% 150 ML IV SCH (12:09)
[2022-08-31] MEDS: LACTULOSE 20 GM/30 ML CUP PO SCH ×4 (12:16→21:18)
[2022-08-31] MEDS: polyethylene glycoL 3350 17 GM POWD.PACK PO SCH ×2 (12:17→20:55)
[2022-08-31] MEDS: TAMSULOSIN 0.4 MG CAP.ER.24H PO SCH (12:17)
[2022-08-31] MEDS: AMIODARONE 200 MG TAB PO SCH ×2 (12:17→20:54)
[2022-08-31] MEDS: PANTOPRAZOLE 40 MG/10 ML VIAL IVP SCH (12:19)
--- NOTE | 2022-08-31 12:19 | P.PN ---
Subjective Progress Note Date: 08/31/22 Principal diagnosis: Respiratory failure. Reevaluated today on 08/25/2022, patient remains in the ICU, intubated and mechanically ventilated, he is on assist control rate of 28th of volume 400 FiO2 50% PEEP of 5 ABG showed a pO2 of 91 pCO2 42 pH of 7.28 patient is scheduled to undergo tracheostomy and PEG tube placement today, hence no changes were made in her present ventilator settings. Patient is still maximized on pressors including norepinephrine at 0.5 mcg/kg/m vasopressin at 0.04 units per minute she is also on amiodarone 1 mg/m TPN at 50 mL/h. Sodium bicarb 3 A in D5W at 75 mL per hour she is also on Versed 6 mg per hour. Chest x-ray shows worsening in her bilateral pneumonia. WBC count is getting worse today 21.7 hemoglobin is 7.3, basic metabolic profile showed slightly low potassium of 3.0, BUN is 79 creatinine 1.87, basically unchanged in the last couple of days. Serum albumin is 1.7. Ionized calcium is 5.2, patient received calcium earlier today Reevaluated today on 08/26/2022, patient remains in the ICU, intubated mechanically ventilated, she is now on assist control rate of 30 tidal volume 400 FiO2 45% PEEP is at 10. Try to go down on the feet, however the patient desaturated and I kept her on a PEEP of 10. ABG today showed a pO2 of 84 pCO2 47 pH of 7.26. Patient remains on multiple drips, she had uneventful tracheostomy placed on 08/25 yesterday. However she did not have a PEG tube, continues to have a nasogastric tube in place. She is now on norepinephrine at 0.47 vasopressin at 0.04 amiodarone at 1 mg/m, bicarb at 75 mL/h Versed at 7 mg per hour today I added Solu-Medrol 40 mg IV push every 8 hours. Mostly because on physical examination she has significant rhonchi and wheezes chest x-ray continues to show bilateral infiltrates. Not much of a change. Overall clinical status about the same and unchanged. Patient remains quite swollen and edematous. Remains on Lasix 80 mg IV push daily. WBC count is rising 21.3. H emoglobin is 7.2. Basic metabolic profile is abnormal with low potassium and low sodium low bicarb elevated BUN of 76 creatinine 1.74. Ionized calcium is 5.6 ammonia level remains elevated at 171. Reevaluated today on 08/27/2022, patient remains in the ICU, intubated and mechanically ventilated sedated, patient is on multiple drips including norepinephrine at 0.3 mcg/kg/m vasopressin at 0.04, amiodarone, bicarbonate 75 ML per hour, and she is also on Versed 7 mg per hour. Patient is on assist control rate of 30 tidal volume 400 FiO2 45% PEEP of 10 ABG showed a pO2 of 100 pCO2 48 pH of 7.30. Patient has been receiving Versed, today I recommended that we stop the Versed and assess mental status if possible. Patient continues to have multiple medical issues, and I believe the patient is worsening clinically. Now she is developing ischemic changes in her fingers and in her toes, becoming more cyanotic. And that is mostly because of significant amount of pressors and the patient has been receiving. Today I recommended that we cut down on the presses since her blood pressure seems to be better and I recommended that we stop her Versed to assess mental status if possible. Hospice son is at bedside, updated the son in her condition, family is very well aware that her condition i s extremely poor and futile, nonetheless the is not ready to let go. I have strongly recommended comfort care measures, remains reluctant to do so. WBC count today is 21.3 hemoglobin 7.2. Basic metabolic profile is normal however her BUN is 75 creatinine 1.8 2, chest x-ray continues to show bilateral air space disease and possibly bilateral pleural effusions tracheostomy seems to be in proper position. Progress note dated 08/28/2022. 87-year-old female who was admitted back on August 08. She initially came in with urinary tract infection, possible bowel obstruction, and sepsis. The patient came to the intensive care unit one day later on the , and was intubated on August 10. For prolonged respiratory failure, and inability to wean, the patient underwent tracheostomy on August 25, and is apparently scheduled to have a PEG tube placed today. She remains on volume assist control, rate 30, tidal volume 400, FiO2 45%, and PEEP of 10. Arterial blood gases show pO2 of 95, pCO2 51, and pH is 7.25. The patient remains on TPN at 65 mL an hour, norepinephrine at 46 mcg/m, Versed 7 mg an hour, saline at KVO, insulin at 50 units an hour, and Lasix at 10 mg an hour. White count 22.4, hemoglobin 6.9, hematocrit 22.6, and platelet count 277,000. Sodium 1:30, potassium 3.6, chlorides 97, CO2 23, BUN 79, and creatinine 1.70. Review his blood cultures from the and August 23 show vancomycin-resistant enterococcus. There was no chest x-ray today. Progress note dated 08/29/2022. 87-year-old female who was admitted back on August 08. She initially came in with urinary tract infection, possible bowel obstruction, and sepsis. The patient came to the intensive care unit one day later on the , and was intubated on August 10. For prolonged respiratory failure, and inability to wean, the patient underwent tracheostomy on August 25. The patient remains on the volume assist control, tidal volume 400, FiO2 5%, and PEEP of 10. Arterial blood gases show pO2 105, pCO2 46, pH is 7.32. His blood gases are consistent with a mild respiratory acidosis. The patient remains on Lasix at 10 mg an hour, TPN at 65 mL an hour, Versed 9 mg an hour, norepinephrine at 21 mcg/m, vasopressin at 0.04 units per minute, and saline at 30 mL an hour. The patient received 1 unit packed red blood cells for hemoglobin of 6.5. Her antibiotics include Eraxis, Zyvox and Zerbaxa. White count is 22.6, hemoglobin 6.5, hematocrit 22.3, with a normal platelet count. Sodium 129, potassium 4.3, chlorides 96, CO2 24, BUN 80, and creatinine 1.62. Albumin is 1.6. Chest x-ray shows bilateral infiltrates, which may be on the basis of pneumonia versus CHF. Progress note dated 08/30/2022. 87-year-old female who was admitted on August 08. She initially was admitted with a diagnosis of urinary tract infection, sepsis, and possible bowel obstruction. The patient came to the intensive care unit one day later, and was intubated on August 10. Because of prolonged respiratory failure and inability to wean, the patient underwent tracheostomy on 08/25. Current ventilator settings include the volume assist control, rate 30, tidal volume 400, FiO2 45%, and PEEP of 10. Arterial blood gases show a PaO2 of 87, pCO2 44, and a pH is 7.31. The patient remains on TPN at 65 mL an hour, norepinephrine at 24 mcg/m, vasopressin 0.04 units per minute, Versed 9 mg an hour, Ativan at 8 mg an hour, and Lasix drip at 10 mg an hour. The patient is scheduled to have another EEG today. The patient is currently on Eraxis, Zyvox, and Zerbaxa. White count 20 .7, hemoglobin 8.1, hematocrit 26.3, and platelet count 221,000. Sodium 126, potassium 4, chlorides 93, CO2 21, BUN 81, and creatinine 1.62. The rest of the labs look okay. Chest x-ray shows diffuse bilateral infiltrates, and are largely unchanged. Progress note dated 08/31/2022. 87-year-old female who was admitted on August 08. She was initially admitted with a diagnosis of urinary tract infection, sepsis, and possible bowel obstruction. She came to the intensive care unit one day later, and was intubated on August 10. Because of prolonged respiratory failure and inability to wean, the patient underwent tracheostomy on August 25. Current ventilator settings include the volume assist control, rate 30, tidal volume 400, FiO2 45%, and PEEP of 10. Arterial blood gases showed pO2 101, pCO2 50, and pH of 7.28. The patient remains on TPN at 65 mL an hour, norepinephrine at 40 mcg/m, vasopressin at 0.04 units per minute, Lasix at 10 mg an hour, and tube feedings, at 10 mL an hour. She will be getting the tube feeds, via nasogastric tube. She remains on antibiotics, and antifungals. White count 21.3, hemoglobin 8.8, hematocrit 27.5, and platelet count 237,000. Sodium 127, potassium 4.4, chlorides 95, CO2 23, BUN 81, and creatinine 1.73. Ammonia level is 60. Chest x-ray shows mild vascular congestion. There are also bibasilar infiltrates. Objective - Vital Signs Vital signs: Vital Signs Temp 97.0 F L 08/31/22 04:00 Pulse 98 08/31/22 11:42 Resp 16 08/31/22 11:42 BP 101/42 08/31/22 07:00 Pulse Ox 97 08/31/22 07:00 FiO2 45 08/31/22 11:21 Intake & Output 08/30/22 08/31/22 08/31/22 18:59 06:59 18:59 Intake Total 2230.412 671.095 3 Output Total 1355 770 50 Balance 875.412 -98.905 -47 Weight 149 kg 149 kg Intake: IV 1528 429 3 0.9% @ KVO 30 Anidulafungin 100 mg In 100 Sodium Chloride 0.9% 100 ml @ 84 mls/hr IVPB DAILY [facility] Rx#:[id number] Ceftolozane/Tazobactam 0. 100 75 gm In Sodium Chloride 0.9% 100 ml @ 100 mls/hr IV Q8HR [facility] Rx#:[id number] Lacosamide IV 150 mg In 100 Sodium Chloride 0.9% 50 ml @ 100 mls/hr IVPB BID [facility] Rx#:[id number] Linezolid 600 mg In 300 Dextrose/Water 1 300ml. bag @ 150 mls/hr IVPB Q12H [facility] Rx#:[id number] Mvi, Adult No.4 with Vit 715 390 K 10 ml Trace (Conc-1Ml/ Dose) 1 ml Sodium Acetate 50 meq Potassium Chloride 50 meq Magnesium Sulfate gm 1 gm Calcium Gluconate 3 gm In Amino Acids 5 %/Dextrose 20 % 1 ,000 ml @ 65 mls/hr IV . BY DURATION [facility] Rx#: [id number] Phenytoin Sodium Inj 300 50 mg In Sodium Chloride 0.9 % 50 ml @ 80 mls/hr IVPB Q12H [facility] Rx#:[id number] Pressure Bag 33 39 3 levETIRAcetam IV 1,000 mg 100 In Saline 1 100ml.bag @ 400 mls/hr IVPB Q12HR [facility] Rx#:[id number] Intake, IV Titration 702.412 242.095 Amount Furosemide 100 mg In 197.500 100 Sodium Chloride 0.9% 90 ml @ 10 MG/HR 10 mls/hr IV .Q10H [facility] Rx#: [id number] LORazepam Vial 25 mg In 275.333 Dextrose 5% in Water 244 ml @ Per Protocol IV .Q0M [facility] Rx#:[id number] Midazolam HCl 50 mg In 73.5 Sodium Chloride 0.9% 40 ml @ 6 MG/HR 6 mls/hr IV .Q8H20M [facility] Rx#:[id number] Norepinephrine 32 mg In 106.079 142.095 Sodium Chloride 0.9% 218 ml @ 0.5 MCG/KG/MIN 25. 547 mls/hr IV .Q9H48M [facility] Rx#:[id number] Phenytoin Sodium Inj 300 50 mg In Sodium Chloride 0.9 % 50 ml @ 80 mls/hr IVPB Q12H [facility] Rx#:[id number] Output: Urine 855 770 50 Stool 500 Other: Voiding Method Indwelling Catheter Indwelling Catheter ABP, PAP, CO, CI - Last Documented Arterial Blood Pressure 79/52 - Exam No acute distress, off all sedation, and currently on the mechanical ventilator. HEENT examination is grossly unremarkable. Neck supple. Full range of motion. No adenopathy thyromegaly or neck vein distention. A midline tracheostomy tube is noted. Cardiovascular examination reveals regular rhythm rate. S1-S2 normal. No S3 or S4. No discernible murmur noted. Heart rate 98 bpm. Lungs reveal scattered bilateral rhonchi. Breath sounds equal. Saturations are 96 %. Abdomen obese, without bowel sounds. Extremities reveal bilateral lower extremity edema. Skin is without rash or lesion. Neurologic examination is difficult to assess. - Labs CBC & Chem 7: 08/31/22 10:20 08/31/22 05:00 Labs: Abnormal Lab Results - Last 24 Hours (Table) 08/30/22 08/30/22 08/30/22 Range/Units 12:15 16:38 19:51 WBC (3.8-10.6) k/uL RBC (3.80-5.40) m/uL Hgb (11.4-16.0) gm/dL Hct (34.0-46.0) % RDW (11.5-15.5) % ABG pH (7.35-7.45) ABG pCO2 (35-45) mmHg ABG Total CO2 (19-24) mmol/L Sodium (137-145) mmol/L Chloride (98-107) mmol/L BUN (7-17) mg/dL Creatinine (0.52-1.04) mg/dL Glucose (74-99) mg/dL POC Glucose (mg/dL) 270 H 243 H 207 H (70-110) mg/dL Calcium (8.4-10.2) mg/dL AST (14-36) U/L Alkaline Phosphatase (38-126) U/L Ammonia (<30) umol/L Total Protein (6.3-8.2) g/dL Albumin (3.5-5.0) g/dL 08/30/22 08/31/22 08/31/22 Range/Units 23:52 04:49 05:00 WBC (3.8-10.6) k/uL RBC (3.80-5.40) m/uL Hgb (11.4-16.0) gm/dL Hct (34.0-46.0) % RDW (11.5-15.5) % ABG pH (7.35-7.45) ABG pCO2 (35-45) mmHg ABG Total CO2 (19-24) mmol/L Sodium 127 L (137-145) mmol/L Chloride 95 L (98-107) mmol/L BUN 81 H (7-17) mg/dL Creatinine 1.73 H (0.52-1.04) mg/dL Glucose 132 H (74-99) mg/dL POC Glucose (mg/dL) 154 H 140 H (70-110) mg/dL Calcium 7.2 L (8.4-10.2) mg/dL AST 38 H (14-36) U/L Alkaline Phosphatase 178 H (38-126) U/L Ammonia (<30) umol/L Total Protein 4.3 L (6.3-8.2) g/dL Albumin 1.7 L (3.5-5.0) g/dL 08/31/22 08/31/22 08/31/22 Range/Units 05:18 10:20 10:20 WBC 21.3 H (3.8-10.6) k/uL RBC 3.11 L (3.80-5.40) m/uL Hgb 8.8 L (11.4-16.0) gm/dL Hct 27.5 L (34.0-46.0) % RDW 19.2 H (11.5-15.5) % ABG pH 7.28 L (7.35-7.45) ABG pCO2 50 H (35-45) mmHg ABG Total CO2 25 H (19-24) mmol/L Sodium (137-145) mmol/L Chloride (98-107) mmol/L BUN (7-17) mg/dL Creatinine (0.52-1.04) mg/dL Glucose (74-99) mg/dL POC Glucose (mg/dL) (70-110) mg/dL Calcium (8.4-10.2) mg/dL AST (14-36) U/L Alkaline Phosphatase (38-126) U/L Ammonia 60 H (<30) umol/L Total Protein (6.3-8.2) g/dL Albumin (3.5-5.0) g/dL Microbiology - Last 24 Hours (Table) 08/29/22 13:29 Blood Culture - Preliminary Blood No Growth after 24 hours Assessment and Plan Assessment: Acute on chronic hypoxemic respiratory failure, status post intubation on August 10, and tracheostomy on August 25. Acute on chronic diastolic CHF. Abdominal sepsis/septic shock. Anion gap metabolic acidosis. Urinary tract infection secondary to Enterococcus faecalis and pseudomonas a eruginosa. Bacteremia secondary to vancomycin-resistant enterococci. Systemic candidiasis. Atrial fibrillation with RVR. Acute on chronic kidney disease. Recent history of coronavirus infection. History of aortic stenosis. Acute on chronic anemia. History of COPD. History of diastolic congestive heart failure. Morbid obesity. Plan: Plan dated 08/28/2022. The patient remains a DO NOT RESUSCITATE patient, but the patient family still wants everything done at this time. The patient will continue on GI and DVT prophylaxis. The patient continues on antibiotics as per infectious diseases. The patient remains on norepinephrine at 46 mcg/m. She also remains on Versed, because of ongoing seizure activity. The patient continues on insulin at 50 units an hour, and a Lasix drip, as well as TPN. The plan is to do a PEG tube today. Additional recommendations and suggestions are forthcoming. Labs, x- rays, and medications are reviewed. Patient is very critically ill, and overall prognosis remains guarded. Plan dated 08/29/2022. The patient remains a DO NOT RESUSCITATE patient. The patient did have a PEG tube placed yesterday. She remains on multiple drips including Lasix, Versed, norepinephrine, and vasopressin. She will receive 1 unit of packed red blood c ells for hemoglobin 6.5. He remains on good antibiotics and antifungals. Blood gases show a very mild respiratory acidosis. She remains on 45% and 10 of PEEP. Prognosis is very guarded. We will continue to follow make recommendations along the way. Plan dated 08/30/2022. The patient remains a DO NOT RESUSCITATE patient. I had a long conversation with the yesterday. The patient remains on appropriate medications including antibiotics, and antifungals, TPN, norepinephrine, vasopressin, Versed, and Ativan. In addition, the patient remains on Lasix drip. The patient had an EEG yesterday, and will have another one today. Neurology is following the patient. Respiratory status is stable. We will continue to follow and make recommendations along the way. Overall prognosis is poor. Plan dated 08/31/2022. The patient is seen today and examined, and room 265. The patient is a DO NOT RESUSCITATE patient. She remains on antifungals and antibiotics. She remains on the mechanical ventilator. A PEG tube could not be placed because of body habitus. She will start tube feedings today to the NG tube. She remains on high doses of both norepinephrine and vasopressin. She also remains on a Lasix drip. Blood gases are adequate. Labs, x-rays, and medications are reviewed. I did speak to neurology about her prognosis, which is poor. Time with Patient: Greater than 30
[2022-08-31] MEDS: metOLazone 5 MG TAB PO SCH ×2 (12:20→20:54)
[2022-08-31] MEDS: ERGOCALCIFEROL 1,250 MCG (50,000 IU) CAPSULE PO SCH (12:21)
[2022-08-31] MEDS: LACOSAMIDE IV 150 MG in SODIUM CHLORIDE 0.9% 50 ML IVPB SCH ×2 (12:42→21:39)
[2022-08-31 13:38] LABS: Glucose,Whole Blood 191 mg/dL (70-110)
[2022-08-31 13:38] LABS: Glucose,Whole Blood <20 mg/dL (70-110)
--- NOTE | 2022-08-31 13:55 | P.PN ---
Subjective Progress Note Date: 08/31/22 CHIEF COMPLAINT: Abdominal pain HISTORY OF PRESENT ILLNESS: Patient remains in the ICU and on mechanical ventilation. Patient had tracheostomy placed on 08/25/2022. Patient was unable to have PEG tube placed because light reflex was not visualized during EGD. Patient remains on vasopressors. She has been started on tube feeds through NG tube. Dietitian also recommends to continue TPN she will have to titrate to bleed slightly. Afebrile. WBC 21 Patient seen and examined with Dr. Head PHYSICAL EXAM: VITAL SIGNS: Reviewed GENERAL: On mechanical ventilation. Head is atraumatic, normocephalic. No nasal drainage. Tracheostomy site clean dry and intact NECK: Supple without lymphadenopathy. CHEST: Non-labored respirations and equal bilateral excursions. CARDIOVASCULAR: Palpable 2+ radial pulses. ABDOMEN: Distended. MUSCULOSKELETAL: No clubbing or cyanosis. ASSESSMENT: 1. Colon perforation 2. Sigmoid volvulus 3. Constipation 4. Sepsis and septic shock 5. UTI 6. Lactic acidosis 7. Acute on chronic kidney disease 8. History of atrial fibrillation 9. History of CVA 9. Hypokalemia 10. Hypocalcemia 11. Blood culture with yeast 12. Hepatic encephalopathy with elevated ammonia 13. Severe protein calorie malnutrition PLAN: -Continue to to titrate tube feeds through NG tube per dietitian recommendations -Continue supportive care -Continue ICU Physician Field Marketing Team Leader note has been reviewed by physician. Signing provider agrees with the documented findings, assessment, and plan of care. Objective - Vital Signs Vital signs: Vital Signs Temp 97.0 F L 08/31/22 04:00 Pulse 98 08/31/22 11:42 Resp 16 08/31/22 11:42 BP 101/42 08/31/22 07:00 Pulse Ox 97 08/31/22 07:00 FiO2 45 08/31/22 11:21 Intake & Output 08/30/22 08/31/22 08/31/22 18:59 06:59 18:59 Intake Total 2230.412 671.095 3 Output Total 1355 770 50 Balance 875.412 -98.905 -47 Weight 149 kg 149 kg Intake: IV 1528 429 3 0.9% @ KVO 30 Anidulafungin 100 mg In 100 Sodium Chloride 0.9% 100 ml @ 84 mls/hr IVPB DAILY [facility] Rx#:[id number] Ceftolozane/Tazobactam 0. 100 75 gm In Sodium Chloride 0.9% 100 ml @ 100 mls/hr IV Q8HR [facility] Rx#:[id number] Lacosamide IV 150 mg In 100 Sodium Chloride 0.9% 50 ml @ 100 mls/hr IVPB BID [facility] Rx#:[id number] Linezolid 600 mg In 300 Dextrose/Water 1 300ml. bag @ 150 mls/hr IVPB Q12H [facility] Rx#:[id number] Mvi, Adult No.4 with Vit 715 390 K 10 ml Trace (Conc-1Ml/ Dose) 1 ml Sodium Acetate 50 meq Potassium Chloride 50 meq Magnesium Sulfate gm 1 gm Calcium Gluconate 3 gm In Amino Acids 5 %/Dextrose 20 % 1 ,000 ml @ 65 mls/hr IV . BY DURATION [facility] Rx#: [id number] Phenytoin Sodium Inj 300 50 mg In Sodium Chloride 0.9 % 50 ml @ 80 mls/hr IVPB Q12H [facility] Rx#:[id number] Pressure Bag 33 39 3 levETIRAcetam IV 1,000 mg 100 In Saline 1 100ml.bag @ 400 mls/hr IVPB Q12HR [facility] Rx#:[id number] Intake, IV Titration 702.412 242.095 Amount Furosemide 100 mg In 197.500 100 Sodium Chloride 0.9% 90 ml @ 10 MG/HR 10 mls/hr IV .Q10H [facility] Rx#: [id number] LORazepam Vial 25 mg In 275.333 Dextrose 5% in Water 244 ml @ Per Protocol IV .Q0M [facility] Rx#:[id number] Midazolam HCl 50 mg In 73.5 Sodium Chloride 0.9% 40 ml @ 6 MG/HR 6 mls/hr IV .Q8H20M [facility] Rx#:[id number] Norepinephrine 32 mg In 106.079 142.095 Sodium Chloride 0.9% 218 ml @ 0.5 MCG/KG/MIN 25. 547 mls/hr IV .Q9H48M [facility] Rx#:[id number] Phenytoin Sodium Inj 300 50 mg In Sodium Chloride 0.9 % 50 ml @ 80 mls/hr IVPB Q12H [facility] Rx#:[id number] Output: Urine 855 770 50 Stool 500 Other: Voiding Method Indwelling Catheter Indwelling Catheter ABP, PAP, CO, CI - Last Documented Arterial Blood Pressure 79/52 - Labs CBC & Chem 7: 08/31/22 10:20 08/31/22 05:00 Labs: Abnormal Lab Results - Last 24 Hours (Table) 08/30/22 08/30/22 08/30/22 Range/Units 16:38 19:51 23:52 WBC (3.8-10.6) k/uL RBC (3.80-5.40) m/uL Hgb (11.4-16.0) gm/dL Hct (34.0-46.0) % RDW (11.5-15.5) % ABG pH (7.35-7.45) ABG pCO2 (35-45) mmHg ABG Total CO2 (19-24) mmol/L Sodium (137-145) mmol/L Chloride (98-107) mmol/L BUN (7-17) mg/dL Creatinine (0.52-1.04) mg/dL Glucose (74-99) mg/dL POC Glucose (mg/dL) 243 H 207 H 154 H (70-110) mg/dL Calcium (8.4-10.2) mg/dL AST (14-36) U/L Alkaline Phosphatase (38-126) U/L Ammonia (<30) umol/L Total Protein (6.3-8.2) g/dL Albumin (3.5-5.0) g/dL 08/31/22 08/31/22 08/31/22 Range/Units 04:49 05:00 05:18 WBC (3.8-10.6) k/uL RBC (3.80-5.40) m/uL Hgb (11.4-16.0) gm/dL Hct (34.0-46.0) % RDW (11.5-15.5) % ABG pH 7.28 L (7.35-7.45) ABG pCO2 50 H (35-45) mmHg ABG Total CO2 25 H (19-24) mmol/L Sodium 127 L (137-145) mmol/L Chloride 95 L (98-107) mmol/L BUN 81 H (7-17) mg/dL Creatinine 1.73 H (0.52-1.04) mg/dL Glucose 132 H (74-99) mg/dL POC Glucose (mg/dL) 140 H (70-110) mg/dL Calcium 7.2 L (8.4-10.2) mg/dL AST 38 H (14-36) U/L Alkaline Phosphatase 178 H (38-126) U/L Ammonia (<30) umol/L Total Protein 4.3 L (6.3-8.2) g/dL Albumin 1.7 L (3.5-5.0) g/dL 08/31/22 08/31/22 08/31/22 Range/Units 10:20 10:20 13:32 WBC 21.3 H (3.8-10.6) k/uL RBC 3.11 L (3.80-5.40) m/uL Hgb 8.8 L (11.4-16.0) gm/dL Hct 27.5 L (34.0-46.0) % RDW 19.2 H (11.5-15.5) % ABG pH (7.35-7.45) ABG pCO2 (35-45) mmHg ABG Total CO2 (19-24) mmol/L Sodium (137-145) mmol/L Chloride (98-107) mmol/L BUN (7-17) mg/dL Creatinine (0.52-1.04) mg/dL Glucose (74-99) mg/dL POC Glucose (mg/dL) <20 L (70-110) mg/dL Calcium (8.4-10.2) mg/dL AST (14-36) U/L Alkaline Phosphatase (38-126) U/L Ammonia 60 H (<30) umol/L Total Protein (6.3-8.2) g/dL Albumin (3.5-5.0) g/dL 08/31/22 Range/Units 13:37 WBC (3.8-10.6) k/uL RBC (3.80-5.40) m/uL Hgb (11.4-16.0) gm/dL Hct (34.0-46.0) % RDW (11.5-15.5) % ABG pH (7.35-7.45) ABG pCO2 (35-45) mmHg ABG Total CO2 (19-24) mmol/L Sodium (137-145) mmol/L Chloride (98-107) mmol/L BUN (7-17) mg/dL Creatinine (0.52-1.04) mg/dL Glucose (74-99) mg/dL POC Glucose (mg/dL) 191 H (70-110) mg/dL Calcium (8.4-10.2) mg/dL AST (14-36) U/L Alkaline Phosphatase (38-126) U/L Ammonia (<30) umol/L Total Protein (6.3-8.2) g/dL Albumin (3.5-5.0) g/dL Microbiology - Last 24 Hours (Table) 08/29/22 13:29 Blood Culture - Preliminary Blood No Growth after 24 hours
--- NOTE | 2022-08-31 14:01 | P.PN ---
Subjective Progress Note Date: 08/31/22 Principal diagnosis: Sepsis/septic shock Patient is a 87-year-old female with multiple comorbidities presented to the hospital with a syncopal episode weakness subsequently hypotension, sepsis requiring transfer to the ICU and intubation on the vent. She patient did have a CT of abdominal pelvis completed on 08/20/2022 with evidence of pneumoperitoneum Gen. surgery discussed with the family currently being treated medically On today's evaluation that is 08/31/2022, the patient continues to be afebrile, the patient remains to be on pressor support to maintain her blood pressure per the nursing staff, the patient FiO2 is stable at 45 %, no purulent secretions through the ET , patient did have NG to suction, patient is on TPN for nutrition, patient is also on Lasix and insulin drip and is also on Solu-Medrol Objective - Vital Signs Vital signs: Vital Signs Temp 97.0 F L 08/31/22 04:00 Pulse 90 08/31/22 08:10 Resp 30 H 08/31/22 08:10 BP 101/42 08/31/22 07:00 Pulse Ox 97 08/31/22 07:00 FiO2 45 08/31/22 07:48 Intake & Output 08/30/22 08/31/22 08/31/22 18:59 06:59 18:59 Intake Total 2230.412 571.095 3 Output Total 1355 770 50 Balance 875.412 -198.905 -47 Weight 149 kg 149 kg Intake: IV 1528 429 3 0.9% @ KVO 30 Anidulafungin 100 mg In 100 Sodium Chloride 0.9% 100 ml @ 84 mls/hr IVPB DAILY [facility] Rx#:[id number] Ceftolozane/Tazobactam 0. 100 75 gm In Sodium Chloride 0.9% 100 ml @ 100 mls/hr IV Q8HR [facility] Rx#:[id number] Lacosamide IV 150 mg In 100 Sodium Chloride 0.9% 50 ml @ 100 mls/hr IVPB BID [facility] Rx#:[id number] Linezolid 600 mg In 300 Dextrose/Water 1 300ml. bag @ 150 mls/hr IVPB Q12H [facility] Rx#:[id number] Mvi, Adult No.4 with Vit 715 390 K 10 ml Trace (Conc-1Ml/ Dose) 1 ml Sodium Acetate 50 meq Potassium Chloride 50 meq Magnesium Sulfate gm 1 gm Calcium Gluconate 3 gm In Amino Acids 5 %/Dextrose 20 % 1 ,000 ml @ 65 mls/hr IV . BY DURATION [facility] Rx#: [id number] Phenytoin Sodium Inj 300 50 mg In Sodium Chloride 0.9 % 50 ml @ 80 mls/hr IVPB Q12H [facility] Rx#:[id number] Pressure Bag 33 39 3 levETIRAcetam IV 1,000 mg 100 In Saline 1 100ml.bag @ 400 mls/hr IVPB Q12HR [facility] Rx#:[id number] Intake, IV Titration 702.412 142.095 Amount Furosemide 100 mg In 197.500 Sodium Chloride 0.9% 90 ml @ 10 MG/HR 10 mls/hr IV .Q10H [facility] Rx#: [id number] LORazepam Vial 25 mg In 275.333 Dextrose 5% in Water 244 ml @ Per Protocol IV .Q0M [facility] Rx#:[id number] Midazolam HCl 50 mg In 73.5 Sodium Chloride 0.9% 40 ml @ 6 MG/HR 6 mls/hr IV .Q8H20M [facility] Rx#:[id number] Norepinephrine 32 mg In 106.079 142.095 Sodium Chloride 0.9% 218 ml @ 0.5 MCG/KG/MIN 25. 547 mls/hr IV .Q9H48M [facility] Rx#:[id number] Phenytoin Sodium Inj 300 50 mg In Sodium Chloride 0.9 % 50 ml @ 80 mls/hr IVPB Q12H [facility] Rx#:[id number] Output: Urine 855 770 50 Stool 500 Other: Voiding Method Indwelling Catheter Indwelling Catheter ABP, PAP, CO, CI - Last Documented Arterial Blood Pressure 79/52 - Exam GENERAL DESCRIPTION: An elderly female intubated on the vent RESPIRATORY SYSTEM: Unlabored breathing , decreased breath sounds at bases HEART: S1 S2 regular rate and rhythm , ABDOMEN: Soft , abdominal distention EXTREMITIES: Diffuse swelling bilateral lower extremity no redness - Labs CBC & Chem 7: 08/31/22 10:20 08/31/22 05:00 Labs: Abnormal Lab Results - Last 24 Hours (Table) 08/30/22 08/30/22 08/30/22 Range/Units 12:15 16:38 19:51 WBC (3.8-10.6) k/uL RBC (3.80-5.40) m/uL Hgb (11.4-16.0) gm/dL Hct (34.0-46.0) % RDW (11.5-15.5) % ABG pH (7.35-7.45) ABG pCO2 (35-45) mmHg ABG Total CO2 (19-24) mmol/L Sodium (137-145) mmol/L Chloride (98-107) mmol/L BUN (7-17) mg/dL Creatinine (0.52-1.04) mg/dL Glucose (74-99) mg/dL POC Glucose (mg/dL) 270 H 243 H 207 H (70-110) mg/dL Calcium (8.4-10.2) mg/dL AST (14-36) U/L Alkaline Phosphatase (38-126) U/L Total Protein (6.3-8.2) g/dL Albumin (3.5-5.0) g/dL 08/30/22 08/31/22 08/31/22 Range/Units 23:52 04:49 05:00 WBC (3.8-10.6) k/uL RBC (3.80-5.40) m/uL Hgb (11.4-16.0) gm/dL Hct (34.0-46.0) % RDW (11.5-15.5) % ABG pH (7.35-7.45) ABG pCO2 (35-45) mmHg ABG Total CO2 (19-24) mmol/L Sodium 127 L (137-145) mmol/L Chloride 95 L (98-107) mmol/L BUN 81 H (7-17) mg/dL Creatinine 1.73 H (0.52-1.04) mg/dL Glucose 132 H (74-99) mg/dL POC Glucose (mg/dL) 154 H 140 H (70-110) mg/dL Calcium 7.2 L (8.4-10.2) mg/dL AST 38 H (14-36) U/L Alkaline Phosphatase 178 H (38-126) U/L Total Protein 4.3 L (6.3-8.2) g/dL Albumin 1.7 L (3.5-5.0) g/dL 08/31/22 08/31/22 Range/Units 05:18 10:20 WBC 21.3 H (3.8-10.6) k/uL RBC 3.11 L (3.80-5.40) m/uL Hgb 8.8 L (11.4-16.0) gm/dL Hct 27.5 L (34.0-46.0) % RDW 19.2 H (11.5-15.5) % ABG pH 7.28 L (7.35-7.45) ABG pCO2 50 H (35-45) mmHg ABG Total CO2 25 H (19-24) mmol/L Sodium (137-145) mmol/L Chloride (98-107) mmol/L BUN (7-17) mg/dL Creatinine (0.52-1.04) mg/dL Glucose (74-99) mg/dL POC Glucose (mg/dL) (70-110) mg/dL Calcium (8.4-10.2) mg/dL AST (14-36) U/L Alkaline Phosphatase (38-126) U/L Total Protein (6.3-8.2) g/dL Albumin (3.5-5.0) g/dL Microbiology - Last 24 Hours (Table) 08/29/22 13:29 Blood Culture - Preliminary Blood No Growth after 24 hours Assessment and Plan (1) Sepsis Current Visit: Yes Status: Acute Code(s): A41.9 - SEPSIS, UNSPECIFIED ORGANISM SNOMED Code(s): 02202862 Plan: 1patient was in the hospital with sepsis and septic shock initially concern for multidrug-resistant Pseudomonas UTI, patient also have a candidemia secondary to possible abdominal source and now with a VRE bacteremia source likely abdominal 2patient did have evidence of colonic perforation and peritonitis being managed medically as the patient considered to be high risk for any surgical procedure 3patient did have persistent VRE bacteremia and could be related to the multiple lines , patient will benefit from removal of those lines to control her bacteremia, patient family has been insisting on blood cultures which has been ordered , results currently pending 4-the patient clinical condition remains to be guarded however the patient did have resolution of her fever and white count still elevated could be related to steroids , patient did have repeat blood cultures done on 08/29/2022 that has been negative so far 5- patient to continue with Zyvox Zerbex and Eraxis and continue supportive care, prognosis remains to be guarded, daughter at the bedside questions were answered Time with Patient: Less than 30
[2022-08-31 16:15] LABS: Glucose,Whole Blood 199 mg/dL (70-110)
--- NOTE | 2022-08-31 16:35 | P.PN ---
Subjective Progress Note Date: 08/31/22 The patient is seen at bedside and is accompanied by her . Per nursing staff, she continues to be about the same and no clinical seizure-like activity since patient has been off IV Versed or Ativan. Objective - Vital Signs Vital signs: Vital Signs Temp 97.6 F 08/31/22 16:00 Pulse 85 08/31/22 16:00 Resp 30 H 08/31/22 16:00 BP 120/40 08/31/22 15:15 Pulse Ox 91 L 08/31/22 16:00 FiO2 45 08/31/22 16:00 Intake & Output 08/30/22 08/31/22 08/31/22 18:59 06:59 18:59 Intake Total 2230.412 671.095 912 Output Total 1979 641 7824 Balance 875.412 -98.905 -288 Weight 149 kg 149 kg Intake: IV 1528 429 892 0.9% @ KVO 30 165 Anidulafungin 100 mg In 100 100 Sodium Chloride 0.9% 100 ml @ 84 mls/hr IVPB DAILY [facility] Rx#:[id number] Ceftolozane/Tazobactam 0. 100 100 75 gm In Sodium Chloride 0.9% 100 ml @ 100 mls/hr IV Q8HR [facility] Rx#:[id number] Lacosamide IV 150 mg In 100 50 Sodium Chloride 0.9% 50 ml @ 100 mls/hr IVPB BID [facility] Rx#:[id number] Linezolid 600 mg In 300 300 Dextrose/Water 1 300ml. bag @ 150 mls/hr IVPB Q12H [facility] Rx#:[id number] Mvi, Adult No.4 with Vit 715 390 K 10 ml Trace (Conc-1Ml/ Dose) 1 ml Sodium Acetate 50 meq Potassium Chloride 50 meq Magnesium Sulfate gm 1 gm Calcium Gluconate 3 gm In Amino Acids 5 %/Dextrose 20 % 1 ,000 ml @ 65 mls/hr IV . BY DURATION [facility] Rx#: [id number] Normal Saline: Pressure 33 39 27 Bag Phenytoin Sodium Inj 300 50 50 mg In Sodium Chloride 0.9 % 50 ml @ 80 mls/hr IVPB Q12H [facility] Rx#:[id number] levETIRAcetam IV 1,000 mg 100 100 In Saline 1 100ml.bag @ 400 mls/hr IVPB Q12HR [facility] Rx#:[id number] Intake, IV Titration 702.412 242.095 Amount Furosemide 100 mg In 197.500 100 Sodium Chloride 0.9% 90 ml @ 10 MG/HR 10 mls/hr IV .Q10H [facility] Rx#: [id number] LORazepam Vial 25 mg In 275.333 Dextrose 5% in Water 244 ml @ Per Protocol IV .Q0M [facility] Rx#:[id number] Midazolam HCl 50 mg In 73.5 Sodium Chloride 0.9% 40 ml @ 6 MG/HR 6 mls/hr IV .Q8H20M [facility] Rx#:[id number] Norepinephrine 32 mg In 106.079 142.095 Sodium Chloride 0.9% 218 ml @ 0.5 MCG/KG/MIN 25. 547 mls/hr IV .Q9H48M [facility] Rx#:[id number] Phenytoin Sodium Inj 300 50 mg In Sodium Chloride 0.9 % 50 ml @ 80 mls/hr IVPB Q12H [facility] Rx#:[id number] Tube Feeding 20 Output: Urine 670 852 6549 Stool 500 Other: Voiding Method Indwelling Catheter Indwelling Catheter ABP, PAP, CO, CI - Last Documented Arterial Blood Pressure 86/73 - Exam GENERAL: The patient is lying in bed and does not appear in acute distress. LUNG:Trach on ventilator. NEUROLOGICAL: Higher mental function: The patient is comatose. Is GCS 3( E1, VT1, M1). Cranial nerves: I had to manually open her eyes. Primary gaze is midline. The pupils are round, equal and pinpoint. No facial weakness. Is breathing over the vent upon taking the vent setting from AC 30 to 8 and was breathing around 23. Motor: The strength is limited but no withdrawal to painful stimuli. No spontanous movement. Sensation: Unable to assess light touch. - Labs CBC & Chem 7: 08/31/22 10:20 08/31/22 05:00 Labs: Abnormal Lab Results - Last 24 Hours (Table) 08/30/22 08/30/22 08/30/22 Range/Units 16:38 19:51 23:52 WBC (3.8-10.6) k/uL RBC (3.80-5.40) m/uL Hgb (11.4-16.0) gm/dL Hct (34.0-46.0) % RDW (11.5-15.5) % ABG pH (7.35-7.45) ABG pCO2 (35-45) mmHg ABG Total CO2 (19-24) mmol/L Sodium (137-145) mmol/L Chloride (98-107) mmol/L BUN (7-17) mg/dL Creatinine (0.52-1.04) mg/dL Glucose (74-99) mg/dL POC Glucose (mg/dL) 243 H 207 H 154 H (70-110) mg/dL Calcium (8.4-10.2) mg/dL AST (14-36) U/L Alkaline Phosphatase (38-126) U/L Ammonia (<30) umol/L Total Protein (6.3-8.2) g/dL Albumin (3.5-5.0) g/dL 08/31/22 08/31/22 08/31/22 Range/Units 04:49 05:00 05:18 WBC (3.8-10.6) k/uL RBC (3.80-5.40) m/uL Hgb (11.4-16.0) gm/dL Hct (34.0-46.0) % RDW (11.5-15.5) % ABG pH 7.28 L (7.35-7.45) ABG pCO2 50 H (35-45) mmHg ABG Total CO2 25 H (19-24) mmol/L Sodium 127 L (137-145) mmol/L Chloride 95 L (98-107) mmol/L BUN 81 H (7-17) mg/dL Creatinine 1.73 H (0.52-1.04) mg/dL Glucose 132 H (74-99) mg/dL POC Glucose (mg/dL) 140 H (70-110) mg/dL Calcium 7.2 L (8.4-10.2) mg/dL AST 38 H (14-36) U/L Alkaline Phosphatase 178 H (38-126) U/L Ammonia (<30) umol/L Total Protein 4.3 L (6.3-8.2) g/dL Albumin 1.7 L (3.5-5.0) g/dL 08/31/22 08/31/22 08/31/22 Range/Units 10:20 10:20 13:32 WBC 21.3 H (3.8-10.6) k/uL RBC 3.11 L (3.80-5.40) m/uL Hgb 8.8 L (11.4-16.0) gm/dL Hct 27.5 L (34.0-46.0) % RDW 19.2 H (11.5-15.5) % ABG pH (7.35-7.45) ABG pCO2 (35-45) mmHg ABG Total CO2 (19-24) mmol/L Sodium (137-145) mmol/L Chloride (98-107) mmol/L BUN (7-17) mg/dL Creatinine (0.52-1.04) mg/dL Glucose (74-99) mg/dL POC Glucose (mg/dL) <20 L (70-110) mg/dL Calcium (8.4-10.2) mg/dL AST (14-36) U/L Alkaline Phosphatase (38-126) U/L Ammonia 60 H (<30) umol/L Total Protein (6.3-8.2) g/dL Albumin (3.5-5.0) g/dL 08/31/22 08/31/22 Range/Units 13:37 16:14 WBC (3.8-10.6) k/uL RBC (3.80-5.40) m/uL Hgb (11.4-16.0) gm/dL Hct (34.0-46.0) % RDW (11.5-15.5) % ABG pH (7.35-7.45) ABG pCO2 (35-45) mmHg ABG Total CO2 (19-24) mmol/L Sodium (137-145) mmol/L Chloride (98-107) mmol/L BUN (7-17) mg/dL Creatinine (0.52-1.04) mg/dL Glucose (74-99) mg/dL POC Glucose (mg/dL) 191 H 199 H (70-110) mg/dL Calcium (8.4-10.2) mg/dL AST (14-36) U/L Alkaline Phosphatase (38-126) U/L Ammonia (<30) umol/L Total Protein (6.3-8.2) g/dL Albumin (3.5-5.0) g/dL Microbiology - Last 24 Hours (Table) 08/29/22 13:29 Blood Culture - Preliminary Blood No Growth after 48 hours Assessment and Plan Assessment: * 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 * Altered mental status multifactorial as mentioned below. 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 Also has some component of metabolic encephalopathy and hepatic encephalopathy. * Abnormal prolonged 2.5 hours EEG, with evidence of runs of 1 Hz LPDs plus there was lateralized periodic discharges, sharp and slow and poly-sharp and slow waves over the left parietal region with spread more anteriorly. There are also some discharges semi-periodic LPDs over the right posterior quadrants. Ictal/interictal continuum---on Versed IV and 3 other antiepileptic drugs (keppra, Vimpat and Dilantin) * Probable perforated viscus with pneumoperitoneum. * Septicemia, with leukocytosis and blood culture persistently positive with enterococcus faecium. Blood cultures positive as of 08/23/2022. White cells slightly worse today 21,000. * Hepatic encephalopathy with initial elevated ammonia and trending down. * Septic shock requiring high-dose pressors and seems has urinary tract infection with urine culture positive for Enterococcus faecalis and Pseudomonas aeruginosa as well as systemic candidiasis * Atrial fibrillation on eliquis (which has hx of afib) , currently on hold. * Acute on chronic hypoxemic respiratory failure secondary to diastolic congestive heart failure requiring intubation mechanical ventilation * Acute on chronic kidney disease * History of TIAs/stroke * History of coronary artery disease with stent * Hypertension * Hyperlipidemia * Diabetes mellitus * Anemia * Hypocalcemia Plan: * Clinically it appears partial status has resolved. No focal twitches noticed at this time. * Patient has multiple 2.5 hour EEG's and routine EEG's. Most recent 2.5 hour EEG on 08/30/22 reported as: Only abnormal 20 half hour video EEG. This EEG demonstrates the patient to be in partial status epilepticus originating from the left posterior quadrant. Also burst suppression pattern was seen. The burst suppression pattern indicating severe diffuse cerebral dysfunction which may be in part due to medication effect. Based on maximum amplitude of the ictal discharges these findings indicate the presence of epileptiform focus more than one up of home focus cannot be excluded involving the left parietal region. The left parietal occipital region, greater involvement of the left hemisphere for an additional independent epileptiform focus involving the right posterior quadrant is not necessarily excluded. * Patient already on high dose Vimpat 150 mg twice a day, Keppra 1000 mg twice a day (both of them adjusted for current renal functions). Also on Dilantin 300mg every 12 hours. On Versed 9 mg per hour and been on Versed since 08/25/22 and IV Ativan 8mg/hr since yesterday. Once been on Ativan close to 24 hours will turn off both Atian and Versed and will get repeat 2.5 hour EEG and assess if any improvement. * Cannot give Depakote because of hyperammonemia. Her Keppra level on 08/26/22: 68.9 (normal is 3-60). * Continue Ativan 1-2 mg every 4 hours when necessary seizure. * Repeat CT head 08/24/2022, which did not reveal any acute intracranial process. However there is possible bilateral mastoiditis and middle ear infections spread. Correlate clinically. Patchy paranasal sinus disease. I personally reviewed CT head, and there is evidence of air-fluid level in the left maxillary sinus. Agree with evidence of possible bilateral mastoiditis and fluid in the middle ear. I discussed with PCP about possibility of lumbar puncture. ID is also on board. Patient currently on Eraxis, Zerbaxa, daptomycin. Per ID, patient is already covered well for meningitis. * Patient's initial Ammonia was 214. Latest was 50. Patient on lactulose. * CT abdomen revealed possibility of perforated viscus. Surgery on board. Patient was considered not a candidate for surgery because of hemodynamic instability. * Patient is on high dose pressors * Hypocalcemia--improving, Recommend appropriate treatment as per IM and critical care. * We'll defer the rest of medical management to primary and ICU team * The patient condition is very critical. Prognosis appears very poor at this time. * I had length discussion with the patient's and daughter who are at bedside. I also discussed with primary team. Also discussed with nurse. From neurological perspective patient has super-refractory status epileptic even though was on IV Versed since 08/25/22 and IV Ativan for about 24 hours not including 3 drugs (Keppra, Dilantin and Vimpat). I feel the use of IV Versed and Ativan even though has been together for 24 hours has not shown any benefit. Her condition is very poor. Therefore, I have updated the patient's daughter via phone and she would like the sedation (Ativan or Versed drip to be held) until clinical seizure and her father can witness them and stated he is in agreement with plan. But if continues to clinically seizure will like to resume IV Sedation. The plan is discussed with and ICU nurse. Will continue to follow. Time with Patient: Less than 30
[2022-08-31 20:51] LABS: Glucose,Whole Blood 189 mg/dL (70-110)
[2022-08-31] MEDS: INSULIN DETEMIR (LEVEMIR) 100 UNIT/ML SYR SQ SCH (20:54)
[2022-09-01] MEDS: CEFTOLOZANE/TAZOBACTAM 0.75 GM in SODIUM CHLORIDE 0.9% 100 ML IV SCH ×4 (00:23→23:50)
[2022-09-01 00:32] LABS: Glucose,Whole Blood 259 mg/dL (70-110)
[2022-09-01] MEDS: methylPREDNISolone SOD SUCCI 40 MG/ML 1 ML VIAL IV SCH ×2 (00:44→11:16)
[2022-09-01] MEDS: PHENYTOIN SODIUM INJ 300 MG in SODIUM CHLORIDE 0.9% 50 ML IVPB SCH ×3 (00:44→23:57)
[2022-09-01] MEDS: INSULIN ASPART (NovoLOG) 100 UNIT/ML VIAL SQ SCH ×7 (00:44→23:50)
[2022-09-01] MEDS: LINEZOLID 600 MG in DEXTROSE/WATER 1 300ML.BAG IVPB SCH ×2 (01:30→12:56)
[2022-09-01] MEDS: 1: MVI, ADULT NO.4 WITH VIT K 10 ML, TRACE (CONC-1ML/DOSE) 1 ML, SODIUM ACETATE 50 MEQ, IV SCH ×24 (03:28→19:41)
[2022-09-01] MEDS: FUROSEMIDE 100 MG in SODIUM CHLORIDE 0.9% 90 ML IV SCH ×3 (05:07→21:00)
[2022-09-01 05:22] LABS: Glucose,Whole Blood 268 mg/dL (70-110)
[2022-09-01 05:54] LABS: Calcium 7.5 mg/dL (8.4-10.2); Magnesium 2.3 mg/dL (1.6-2.3); Phosphorus 3.6 mg/dL (2.5-4.5); Potassium 4.7 mmol/L (3.5-5.1)
[2022-09-01 06:41] LABS: ABG Base Excess -1.7 mmol/L; ABG HCO3 24 mmol/L (21-25); ABG Oxygen Saturation 95.9 % (94-97); ABG PCO2 44 mmHg (35-45); ABG PH 7.34 (7.35-7.45); ABG PO2 103 mmHg (83-108); ABG TCO2 25 mmol/L (19-24); Allen Test Performed? Yes
[2022-09-01] MEDS: ANIDULAFUNGIN 100 MG in SODIUM CHLORIDE 0.9% 100 ML IVPB SCH (08:30)
[2022-09-01] MEDS: LACOSAMIDE IV 150 MG in SODIUM CHLORIDE 0.9% 50 ML IVPB SCH ×2 (08:36→21:20)
[2022-09-01 08:45] LABS: Glucose,Whole Blood 287 mg/dL (70-110)
[2022-09-01] MEDS: IPRATROPIUM 0.5 MG/2.5 ML NEBU INHALATION SCH ×4 (10:03→21:06)
[2022-09-01] MEDS: ALBUTEROL NEBULIZED 2.5 MG/3 ML INHALATION SCH ×4 (10:03→21:06)
[2022-09-01] MEDS: AMIODARONE 200 MG TAB PO SCH ×2 (10:33→20:56)
[2022-09-01] MEDS: LACTULOSE 20 GM/30 ML CUP PO SCH ×4 (10:33→21:21)
[2022-09-01] MEDS: metOLazone 5 MG TAB PO SCH ×2 (10:33→21:20)
[2022-09-01] MEDS: PANTOPRAZOLE 40 MG/10 ML VIAL IVP SCH (10:34)
[2022-09-01] MEDS: polyethylene glycoL 3350 17 GM POWD.PACK PO SCH ×2 (10:35→21:47)
[2022-09-01] MEDS: levETIRAcetam IV 1,000 MG in SALINE 1 100ML.BAG IVPB SCH ×2 (10:38→20:56)
[2022-09-01] MEDS: NOREPINEPHRINE 32 MG in SODIUM CHLORIDE 0.9% 218 ML IV SCH ×2 (11:00→14:59)
[2022-09-01] MEDS: VASOPRESSIN 60 UNIT in SODIUM CHLORIDE 0.9% 150 ML IV SCH (11:04)
--- NOTE | 2022-09-01 11:08 | P.PN ---
Subjective Patient is seen in follow-up for acute kidney injury. Renal function stable. Urine output improved - now 250-400 mL per hour. Intubated. Currently on Levophed and vasopressin. On Lasix drip. Receiving TPN. Also on Versed and Ativan for seizures. Vital signs - on vasopressor support. General: Resting in bed. HEENT: Intubated. LUNGS: Breath sounds decreased. HEART: Regular rate and rhythm. ABDOMEN: Distention noted. EXTREMITITES: 2+ edema. Objective - Vital Signs Vital signs: Vital Signs Temp 97.3 F L 09/01/22 04:00 Pulse 93 09/01/22 10:13 Resp 30 H 09/01/22 07:00 BP 134/55 09/01/22 07:00 Pulse Ox 96 09/01/22 07:00 FiO2 45 09/01/22 09:39 Intake & Output 08/31/22 09/01/22 09/01/22 18:59 06:59 18:59 Intake Total 1054 2627.514 277.917 Output Total 1750 3525 325 Balance -696 -897.486 -47.083 Weight 149 kg 144.6 kg Intake: IV 964 1018 83 0.9% @ KVO 225 165 15 Anidulafungin 100 mg In 100 Sodium Chloride 0.9% 100 ml @ 84 mls/hr IVPB DAILY [facility] Rx#:[id number] Ceftolozane/Tazobactam 0. 100 100 75 gm In Sodium Chloride 0.9% 100 ml @ 100 mls/hr IV Q8HR [facility] Rx#:[id number] Lacosamide IV 150 mg In 50 50 Sodium Chloride 0.9% 50 ml @ 100 mls/hr IVPB BID [facility] Rx#:[id number] Linezolid 600 mg In 300 Dextrose/Water 1 300ml. bag @ 150 mls/hr IVPB Q12H [facility] Rx#:[id number] [facility], Adult No.4 with Vit 65 K 10 ml Trace (Conc-1Ml/ Dose) 1 ml Sodium Acetate 50 meq Potassium Chloride 50 meq Magnesium Sulfate gm 1 gm Calcium Gluconate 3 gm In Amino Acids 5 %/Dextrose 20 % 1 ,000 ml @ 65 mls/hr IV . BY DURATION [facility] Rx#: [id number] Normal Saline: Pressure 39 33 3 Bag Phenytoin Sodium Inj 300 50 50 mg In Sodium Chloride 0.9 % 50 ml @ 80 mls/hr IVPB Q12H [facility] Rx#:[id number] Sodium Acetate 30 meq 455 65 Potassium Chloride 30 meq Magnesium Sulfate gm 0.5 gm Calcium Gluconate 2 gm In Amino Acids 5 %/ Dextrose 20 % 1,000 ml @ 65 mls/hr IV .BY DURATION [facility] Rx#:[id number] levETIRAcetam IV 1,000 mg 100 100 In Saline 1 100ml.bag @ 400 mls/hr IVPB Q12HR [facility] Rx#:[id number] Intake, IV Titration 1479.514 194.917 Amount Furosemide 100 mg In 174.5 54.667 Sodium Chloride 0.9% 90 ml @ 10 MG/HR 10 mls/hr IV .Q10H [facility] Rx#: [id number] [facility], Adult No.4 with Vit 1003.167 K 10 ml Trace (Conc-1Ml/ Dose) 1 ml Sodium Acetate 50 meq Potassium Chloride 50 meq Magnesium Sulfate gm 1 gm Calcium Gluconate 3 gm Sodium Chloride 4Meq/ml Vial 28 meq In Amino Acids 5 %/ Dextrose 20 % 1,000 ml @ 65 mls/hr IV .BY DURATION [facility] Rx#:[id number] Norepinephrine 32 mg In 301.847 Sodium Chloride 0.9% 218 ml @ 0.5 MCG/KG/MIN 25. 547 mls/hr IV .Q9H48M [facility] Rx#:[id number] Vasopressin 60 unit In 140.25 Sodium Chloride 0.9% 150 ml @ 0.04 UNITS/MIN 6.12 mls/hr IV .Q24H [facility] Rx#: [id number] Tube Feeding 60 70 Other 30 60 Output: Urine 1750 3525 325 Other: Voiding Method Indwelling Catheter Indwelling Catheter ABP, PAP, CO, CI - Last Documented Arterial Blood Pressure 132/88 - Labs CBC & Chem 7: 08/31/22 10:20 09/01/22 06:00 Labs: Abnormal Lab Results - Last 24 Hours (Table) 08/31/22 08/31/22 08/31/22 Range/Units 13:32 13:37 16:14 ABG pH (7.35-7.45) ABG Total CO2 (19-24) mmol/L Sodium (137-145) mmol/L Chloride (98-107) mmol/L Carbon Dioxide (22-30) mmol/L BUN (7-17) mg/dL Creatinine (0.52-1.04) mg/dL Glucose (74-99) mg/dL POC Glucose (mg/dL) <20 L 191 H 199 H (70-110) mg/dL Calcium (8.4-10.2) mg/dL 08/31/22 09/01/22 09/01/22 Range/Units 20:50 00:29 05:20 ABG pH (7.35-7.45) ABG Total CO2 (19-24) mmol/L Sodium (137-145) mmol/L Chloride (98-107) mmol/L Carbon Dioxide (22-30) mmol/L BUN (7-17) mg/dL Creatinine (0.52-1.04) mg/dL Glucose (74-99) mg/dL POC Glucose (mg/dL) 189 H 259 H 268 H (70-110) mg/dL Calcium (8.4-10.2) mg/dL 09/01/22 09/01/22 09/01/22 Range/Units 06:00 06:26 08:43 ABG pH 7.34 L (7.35-7.45) ABG Total CO2 25 H (19-24) mmol/L Sodium 126 L (137-145) mmol/L Chloride 96 L (98-107) mmol/L Carbon Dioxide 21 L (22-30) mmol/L BUN 86 H (7-17) mg/dL Creatinine 1.65 H (0.52-1.04) mg/dL Glucose 266 H (74-99) mg/dL POC Glucose (mg/dL) 287 H (70-110) mg/dL Calcium 7.5 L (8.4-10.2) mg/dL Microbiology - Last 24 Hours (Table) 08/29/22 13:29 Blood Culture - Preliminary Blood No Growth after 48 hours Assessment and Plan Plan: Assessment: 1. Acute kidney injury secondary to ATN secondary to septic shock. Baseline creatinine near 0.8 from June 2022 - peaked at 2.77 this admission - stable at 1.65 today. Urine output now 250-500 mL an hour. No hydronephrosis noted on CAT scan. 2. Septic shock secondary to UTI, fungemia and bacteremia. CAT scan done in 08/20/2022 showed pneumoperitoneum. On antibiotics/antifungal and vasopressor support. 3. Metabolic acidosis secondary to acute kidney injury. s/p bicarb drip. 4. Hypokalemia from poor intake and diuresis. Also intracellular shifting from IV bicarb. Replaced. Improved. 5. Acute hypoxic respiratory failure. 6. A. fib with RVR. On po amiodarone. Cardiology following. 8. Hyponatremia secondary to acute kidney injury. Hypervolemic. 9. Hypocalcemia secondary to acute kidney injury. Improved. On vitamin D. 10. Severe volume overload. Plan: Maintain Lasix drip. Maintain TPN. Wean FiO2 and vasopressors. Avoid nephrotoxins. Continue to monitor renal function and urine output. Prognosis poor. The family wishes to continue with aggressive therapy. Renal replacement therapy has been discussed with the family. I discussed with them that the patient is hemodynamically unstable but may be able to attempt SLED due to severe volume overload. Family hasn't made up their mind regarding renal replacement therapy at this time. Continue to monitor.
[2022-09-01] MEDS: FORMOTEROL FUMARATE 20 MCG/2 ML NEBU INHALATION SCH (11:16)
[2022-09-01] MEDS: BUDESONIDE 1 MG/2 ML NEBU INHALATION SCH (11:16)
[2022-09-01 11:27] LABS: Glucose,Whole Blood 226 mg/dL (70-110)
--- NOTE | 2022-09-01 11:30 | P.PN ---
Subjective Progress Note Date: 09/01/22 Principal diagnosis: Respiratory failure. Reevaluated today on 08/25/2022, patient remains in the ICU, intubated and mechanically ventilated, he is on assist control rate of 28th of volume 400 FiO2 50% PEEP of 5 ABG showed a pO2 of 91 pCO2 42 pH of 7.28 patient is scheduled to undergo tracheostomy and PEG tube placement today, hence no changes were made in her present ventilator settings. Patient is still maximized on pressors including norepinephrine at 0.5 mcg/kg/m vasopressin at 0.04 units per minute she is also on amiodarone 1 mg/m TPN at 50 mL/h. Sodium bicarb 3 A in D5W at 75 mL per hour she is also on Versed 6 mg per hour. Chest x-ray shows worsening in her bilateral pneumonia. WBC count is getting worse today 21.7 hemoglobin is 7.3, basic metabolic profile showed slightly low potassium of 3.0, BUN is 79 creatinine 1.87, basically unchanged in the last couple of days. Serum albumin is 1.7. Ionized calcium is 5.2, patient received calcium earlier today Reevaluated today on 08/26/2022, patient remains in the ICU, intubated mechanically ventilated, she is now on assist control rate of 30 tidal volume 400 FiO2 45% PEEP is at 10. Try to go down on the feet, however the patient desaturated and I kept her on a PEEP of 10. ABG today showed a pO2 of 84 pCO2 47 pH of 7.26. Patient remains on multiple drips, she had uneventful tracheostomy placed on 08/25 yesterday. However she did not have a PEG tube, continues to have a nasogastric tube in place. She is now on norepinephrine at 0.47 vasopressin at 0.04 amiodarone at 1 mg/m, bicarb at 75 mL/h Versed at 7 mg per hour today I added Solu-Medrol 40 mg IV push every 8 hours. Mostly because on physical examination she has significant rhonchi and wheezes chest x-ray continues to show bilateral infiltrates. Not much of a change. Overall clinical status about the same and unchanged. Patient remains quite swollen and edematous. Remains on Lasix 80 mg IV push daily. WBC count is rising 21.3. H emoglobin is 7.2. Basic metabolic profile is abnormal with low potassium and low sodium low bicarb elevated BUN of 76 creatinine 1.74. Ionized calcium is 5.6 ammonia level remains elevated at 171. Reevaluated today on 08/27/2022, patient remains in the ICU, intubated and mechanically ventilated sedated, patient is on multiple drips including norepinephrine at 0.3 mcg/kg/m vasopressin at 0.04, amiodarone, bicarbonate 75 ML per hour, and she is also on Versed 7 mg per hour. Patient is on assist control rate of 30 tidal volume 400 FiO2 45% PEEP of 10 ABG showed a pO2 of 100 pCO2 48 pH of 7.30. Patient has been receiving Versed, today I recommended that we stop the Versed and assess mental status if possible. Patient continues to have multiple medical issues, and I believe the patient is worsening clinically. Now she is developing ischemic changes in her fingers and in her toes, becoming more cyanotic. And that is mostly because of significant amount of pressors and the patient has been receiving. Today I recommended that we cut down on the presses since her blood pressure seems to be better and I recommended that we stop her Versed to assess mental status if possible. Hospice son is at bedside, updated the son in her condition, family is very well aware that her condition i s extremely poor and futile, nonetheless the is not ready to let go. I have strongly recommended comfort care measures, remains reluctant to do so. WBC count today is 21.3 hemoglobin 7.2. Basic metabolic profile is normal however her BUN is 75 creatinine 1.8 2, chest x-ray continues to show bilateral air space disease and possibly bilateral pleural effusions tracheostomy seems to be in proper position. Progress note dated 08/28/2022. 87-year-old female who was admitted back on August 08. She initially came in with urinary tract infection, possible bowel obstruction, and sepsis. The patient came to the intensive care unit one day later on the , and was intubated on August 10. For prolonged respiratory failure, and inability to wean, the patient underwent tracheostomy on August 25, and is apparently scheduled to have a PEG tube placed today. She remains on volume assist control, rate 30, tidal volume 400, FiO2 45%, and PEEP of 10. Arterial blood gases show pO2 of 95, pCO2 51, and pH is 7.25. The patient remains on TPN at 65 mL an hour, norepinephrine at 46 mcg/m, Versed 7 mg an hour, saline at KVO, insulin at 50 units an hour, and Lasix at 10 mg an hour. White count 22.4, hemoglobin 6.9, hematocrit 22.6, and platelet count 277,000. Sodium 1:30, potassium 3.6, chlorides 97, CO2 23, BUN 79, and creatinine 1.70. Review his blood cultures from the and August 23 show vancomycin-resistant enterococcus. There was no chest x-ray today. Progress note dated 08/29/2022. 87-year-old female who was admitted back on August 08. She initially came in with urinary tract infection, possible bowel obstruction, and sepsis. The patient came to the intensive care unit one day later on the , and was intubated on August 10. For prolonged respiratory failure, and inability to wean, the patient underwent tracheostomy on August 25. The patient remains on the volume assist control, tidal volume 400, FiO2 5%, and PEEP of 10. Arterial blood gases show pO2 105, pCO2 46, pH is 7.32. His blood gases are consistent with a mild respiratory acidosis. The patient remains on Lasix at 10 mg an hour, TPN at 65 mL an hour, Versed 9 mg an hour, norepinephrine at 21 mcg/m, vasopressin at 0.04 units per minute, and saline at 30 mL an hour. The patient received 1 unit packed red blood cells for hemoglobin of 6.5. Her antibiotics include Eraxis, Zyvox and Zerbaxa. White count is 22.6, hemoglobin 6.5, hematocrit 22.3, with a normal platelet count. Sodium 129, potassium 4.3, chlorides 96, CO2 24, BUN 80, and creatinine 1.62. Albumin is 1.6. Chest x-ray shows bilateral infiltrates, which may be on the basis of pneumonia versus CHF. Progress note dated 08/30/2022. 87-year-old female who was admitted on August 08. She initially was admitted with a diagnosis of urinary tract infection, sepsis, and possible bowel obstruction. The patient came to the intensive care unit one day later, and was intubated on August 10. Because of prolonged respiratory failure and inability to wean, the patient underwent tracheostomy on 08/25. Current ventilator settings include the volume assist control, rate 30, tidal volume 400, FiO2 45%, and PEEP of 10. Arterial blood gases show a PaO2 of 87, pCO2 44, and a pH is 7.31. The patient remains on TPN at 65 mL an hour, norepinephrine at 24 mcg/m, vasopressin 0.04 units per minute, Versed 9 mg an hour, Ativan at 8 mg an hour, and Lasix drip at 10 mg an hour. The patient is scheduled to have another EEG today. The patient is currently on Eraxis, Zyvox, and Zerbaxa. White count 20 .7, hemoglobin 8.1, hematocrit 26.3, and platelet count 221,000. Sodium 126, potassium 4, chlorides 93, CO2 21, BUN 81, and creatinine 1.62. The rest of the labs look okay. Chest x-ray shows diffuse bilateral infiltrates, and are largely unchanged. Progress note dated 08/31/2022. 87-year-old female who was admitted on August 08. She was initially admitted with a diagnosis of urinary tract infection, sepsis, and possible bowel obstruction. She came to the intensive care unit one day later, and was intubated on August 10. Because of prolonged respiratory failure and inability to wean, the patient underwent tracheostomy on August 25. Current ventilator settings include the volume assist control, rate 30, tidal volume 400, FiO2 45%, and PEEP of 10. Arterial blood gases showed pO2 101, pCO2 50, and pH of 7.28. The patient remains on TPN at 65 mL an hour, norepinephrine at 40 mcg/m, vasopressin at 0.04 units per minute, Lasix at 10 mg an hour, and tube feedings, at 10 mL an hour. She will be getting the tube feeds, via nasogastric tube. She remains on antibiotics, and antifungals. White count 21.3, hemoglobin 8.8, hematocrit 27.5, and platelet count 237,000. Sodium 127, potassium 4.4, chlorides 95, CO2 23, BUN 81, and creatinine 1.73. Ammonia level is 60. Chest x-ray shows mild vascular congestion. There are also bibasilar infiltrates. Progress note dated 09/01/2022. 87-year-old female again seen in room 265. The patient has been here in the hospital now for 24 days. She remains on the mechanical ventilator. She was initially admitted with a diagnosis of urinary tract infection, sepsis, and possible bowel obstruction. The patient remains on volume assist control, rate 30, tidal volume 400, FiO2 45%, and PEEP of 10. Blood gases show pO2 103, pCO2 44, and a pH is 7.34. She is on norepinephrine at 33 mcg/m, Lasix drip at 10 mg an hour, vasopressin at 0.04 units per minute and TPN at 65 mL an hour. In addition, the patient is receiving saline at 20 mL an hour. We attempted a left radial art line today, but were unable to cannulate the artery. Sodium 126, potassium 4.7, chlorides 96, CO2 21, BUN 86, creatinine 1.65. CBC has not yet been done. No chest x-ray today. Objective - Vital Signs Vital signs: Vital Signs Temp 97.3 F L 09/01/22 04:00 Pulse 93 09/01/22 10:13 Resp 30 H 09/01/22 07:00 BP 134/55 09/01/22 07:00 Pulse Ox 96 09/01/22 07:00 FiO2 45 09/01/22 09:39 Intake & Output 08/31/22 09/01/22 09/01/22 18:59 06:59 18:59 Intake Total 1054 2627.514 277.917 Output Total 1750 3525 325 Balance -696 -897.486 -47.083 Weight 149 kg 144.6 kg Intake: IV 964 1018 83 0.9% @ KVO 225 165 15 Anidulafungin 100 mg In 100 Sodium Chloride 0.9% 100 ml @ 84 mls/hr IVPB DAILY [facility] Rx#:[id number] Ceftolozane/Tazobactam 0. 100 100 75 gm In Sodium Chloride 0.9% 100 ml @ 100 mls/hr IV Q8HR [facility] Rx#:[id number] Lacosamide IV 150 mg In 50 50 Sodium Chloride 0.9% 50 ml @ 100 mls/hr IVPB BID [facility] Rx#:[id number] Linezolid 600 mg In 300 Dextrose/Water 1 300ml. bag @ 150 mls/hr IVPB Q12H [facility] Rx#:[id number] Mvi, Adult No.4 with Vit 65 K 10 ml Trace (Conc-1Ml/ Dose) 1 ml Sodium Acetate 50 meq Potassium Chloride 50 meq Magnesium Sulfate gm 1 gm Calcium Gluconate 3 gm In Amino Acids 5 %/Dextrose 20 % 1 ,000 ml @ 65 mls/hr IV . BY DURATION [facility] Rx#: [id number] Normal Saline: Pressure 39 33 3 Bag Phenytoin Sodium Inj 300 50 50 mg In Sodium Chloride 0.9 % 50 ml @ 80 mls/hr IVPB Q12H [facility] Rx#:[id number] Sodium Acetate 30 meq 455 65 Potassium Chloride 30 meq Magnesium Sulfate gm 0.5 gm Calcium Gluconate 2 gm In Amino Acids 5 %/ Dextrose 20 % 1,000 ml @ 65 mls/hr IV .BY DURATION [facility] Rx#:[id number] levETIRAcetam IV 1,000 mg 100 100 In Saline 1 100ml.bag @ 400 mls/hr IVPB Q12HR [facility] Rx#:[id number] Intake, IV Titration 1479.514 194.917 Amount Furosemide 100 mg In 174.5 54.667 Sodium Chloride 0.9% 90 ml @ 10 MG/HR 10 mls/hr IV .Q10H [facility] Rx#: [id number] Mvi, Adult No.4 with Vit 1003.167 K 10 ml Trace (Conc-1Ml/ Dose) 1 ml Sodium Acetate 50 meq Potassium Chloride 50 meq Magnesium Sulfate gm 1 gm Calcium Gluconate 3 gm Sodium Chloride 4Meq/ml Vial 28 meq In Amino Acids 5 %/ Dextrose 20 % 1,000 ml @ 65 mls/hr IV .BY DURATION [facility] Rx#:[id number] Norepinephrine 32 mg In 301.847 Sodium Chloride 0.9% 218 ml @ 0.5 MCG/KG/MIN 25. 547 mls/hr IV .Q9H48M [facility] Rx#:[id number] Vasopressin 60 unit In 140.25 Sodium Chloride 0.9% 150 ml @ 0.04 UNITS/MIN 6.12 mls/hr IV .Q24H [facility] Rx#: [id number] Tube Feeding 60 70 Other 30 60 Output: Urine 1750 3525 325 Other: Voiding Method Indwelling Catheter Indwelling Catheter ABP, PAP, CO, CI - Last Documented Arterial Blood Pressure 132/88 - Exam No acute distress, off all sedation, and currently on the mechanical ventilator. HEENT examination is grossly unremarkable. Neck supple. Full range of motion. No adenopathy thyromegaly or neck vein distention. A midline tracheostomy tube is noted. Cardiovascular examination reveals regular rhythm rate. S1-S2 normal. No S3 or S4. No discernible murmur noted. Heart rate 93 bpm. Lungs reveal scattered bilateral rhonchi. Breath sounds equal. Saturations are 96 %. Abdomen obese, without bowel sounds. Extremities reveal bilateral lower extremity edema. There is diffuse anasarca as well. Skin is without rash or lesion. Neurologic examination is difficult to assess. - Labs CBC & Chem 7: 08/31/22 10:20 09/01/22 06:00 Labs: Abnormal Lab Results - Last 24 Hours (Table) 08/31/22 08/31/22 08/31/22 Range/Units 13:32 13:37 16:14 ABG pH (7.35-7.45) ABG Total CO2 (19-24) mmol/L Sodium (137-145) mmol/L Chloride (98-107) mmol/L Carbon Dioxide (22-30) mmol/L BUN (7-17) mg/dL Creatinine (0.52-1.04) mg/dL Glucose (74-99) mg/dL POC Glucose (mg/dL) <20 L 191 H 199 H (70-110) mg/dL Calcium (8.4-10.2) mg/dL 08/31/22 09/01/22 09/01/22 Range/Units 20:50 00:29 05:20 ABG pH (7.35-7.45) ABG Total CO2 (19-24) mmol/L Sodium (137-145) mmol/L Chloride (98-107) mmol/L Carbon Dioxide (22-30) mmol/L BUN (7-17) mg/dL Creatinine (0.52-1.04) mg/dL Glucose (74-99) mg/dL POC Glucose (mg/dL) 189 H 259 H 268 H (70-110) mg/dL Calcium (8.4-10.2) mg/dL 09/01/22 09/01/22 09/01/22 Range/Units 06:00 06:26 08:43 ABG pH 7.34 L (7.35-7.45) ABG Total CO2 25 H (19-24) mmol/L Sodium 126 L (137-145) mmol/L Chloride 96 L (98-107) mmol/L Carbon Dioxide 21 L (22-30) mmol/L BUN 86 H (7-17) mg/dL Creatinine 1.65 H (0.52-1.04) mg/dL Glucose 266 H (74-99) mg/dL POC Glucose (mg/dL) 287 H (70-110) mg/dL Calcium 7.5 L (8.4-10.2) mg/dL Microbiology - Last 24 Hours (Table) 08/29/22 13:29 Blood Culture - Preliminary Blood No Growth after 48 hours Assessment and Plan Assessment: Acute on chronic hypoxemic respiratory failure, status post intubation on August 10, and tracheostomy on August 25. Acute on chronic diastolic CHF. Abdominal sepsis/septic shock. Anion gap metabolic acidosis. Urinary tract infection secondary to Enterococcus faecalis and pseudomonas aeruginosa. Bacteremia secondary to vancomycin-resistant enterococci. Systemic candidiasis. Atrial fibrillation with RVR. Acute on chronic kidney disease. Recent history of coronavirus infection. History of aortic stenosis. Acute on chronic anemia. History of COPD. History of diastolic congestive heart failure. Morbid obesity. Plan: Plan dated 08/28/2022. The patient remains a DO NOT RESUSCITATE patient, but the patient family still wants everything done at this time. The patient will continue on GI and DVT prophylaxis. The patient continues on antibiotics as per infectious diseases. The patient remains on norepinephrine at 46 mcg/m. She also remains on Versed, because of ongoing seizure activity. The patient continues on insulin at 50 units an hour, and a Lasix drip, as well as TPN. The plan is to do a PEG tube today. Additional recommendations and suggestions are forthcoming. Labs, x- rays, and medications are reviewed. Patient is very critically ill, and overall prognosis remains guarded. Plan dated 08/29/2022. The patient remains a DO NOT RESUSCITATE patient. The patient did have a PEG tube placed yesterday. She remains on multiple drips including Lasix, Versed, norepinephrine, and vasopressin. She will receive 1 unit of packed red blood cells for hemoglobin 6.5. He remains on good antibiotics and antifungals. Blood gases show a very mild respiratory acidosis. She remains on 45% and 10 of PEEP. Prognosis is very guarded. We will continue to follow make recommendations along the way. Plan dated 08/30/2022. The patient remains a DO NOT RESUSCITATE patient. I had a long conversation with the yesterday. The patient remains on appropriate medications including antibiotics, and antifungals, TPN, norepinephrine, vasopressin, Versed, and Ativan. In addition, the patient remains on Lasix drip. The patient had an EEG yesterday, and will have another one today. Neurology is following the patient. Respiratory status is stable. We will continue to follow and make recommendations along the way. Overall prognosis is poor. Plan dated 08/31/2022. The patient is seen today and examined, and room 265. The patient is a DO NOT RESUSCITATE patient. She remains on antifungals and antibiotics. She remains on the mechanical ventilator. A PEG tube could not be placed because of body habitus. She will start tube feedings today to the NG tube. She remains on high doses of both norepinephrine and vasopressin. She also remains on a Lasix drip. Blood gases are adequate. Labs, x-rays, and medications are reviewed. I did speak to neurology about her prognosis, which is poor. Plan dated 09/01/2022. The patient remains on significant doses of both norepinephrine and vasopressin, for blood pressure support. We attempted a left radial art line, could not cannulate the artery today. Labs, x-rays, and medications are all reviewed. We are going to DC the corticosteroids, budesonide, formoterol, and Flomax. Additional recommendations and suggestions are forthcoming. We will continue to follow the patient make recommendations and suggestions along the way. The patient's overall prognosis is very poor and my opinion. I believe neurology feels exactly the same way. Time with Patient: Greater than 30
[2022-09-01] MEDS: FAT EMULSION 20% 250 ML in EMPTY BAG 1 BAG IV SCH (11:45)
--- NOTE | 2022-09-01 12:21 | P.PN ---
Subjective Progress Note Date: 09/01/22 I spoke with the patient's nurse and changes. No clinical seizures. She continues to be off sedation. Objective - Vital Signs Vital signs: Vital Signs Temp 97.3 F L 09/01/22 04:00 Pulse 93 09/01/22 10:13 Resp 30 H 09/01/22 07:00 BP 134/55 09/01/22 07:00 Pulse Ox 96 09/01/22 07:00 FiO2 45 09/01/22 09:39 Intake & Output 08/31/22 09/01/22 09/01/22 18:59 06:59 18:59 Intake Total 1054 2627.514 277.917 Output Total 1750 3525 325 Balance -696 -897.486 -47.083 Weight 149 kg 144.6 kg Intake: IV 964 1018 83 0.9% @ KVO 225 165 15 Anidulafungin 100 mg In 100 Sodium Chloride 0.9% 100 ml @ 84 mls/hr IVPB DAILY [facility] Rx#:[id number] Ceftolozane/Tazobactam 0. 100 100 75 gm In Sodium Chloride 0.9% 100 ml @ 100 mls/hr IV Q8HR [facility] Rx#:[id number] Lacosamide IV 150 mg In 50 50 Sodium Chloride 0.9% 50 ml @ 100 mls/hr IVPB BID [facility] Rx#:[id number] Linezolid 600 mg In 300 Dextrose/Water 1 300ml. bag @ 150 mls/hr IVPB Q12H [facility] Rx#:[id number] Mvi, Adult No.4 with Vit 65 K 10 ml Trace (Conc-1Ml/ Dose) 1 ml Sodium Acetate 50 meq Potassium Chloride 50 meq Magnesium Sulfate gm 1 gm Calcium Gluconate 3 gm In Amino Acids 5 %/Dextrose 20 % 1 ,000 ml @ 65 mls/hr IV . BY DURATION [facility] Rx#: [id number] Normal Saline: Pressure 39 33 3 Bag Phenytoin Sodium Inj 300 50 50 mg In Sodium Chloride 0.9 % 50 ml @ 80 mls/hr IVPB Q12H [facility] Rx#:[id number] Sodium Acetate 30 meq 455 65 Potassium Chloride 30 meq Magnesium Sulfate gm 0.5 gm Calcium Gluconate 2 gm In Amino Acids 5 %/ Dextrose 20 % 1,000 ml @ 65 mls/hr IV .BY DURATION [facility] Rx#:[id number] levETIRAcetam IV 1,000 mg 100 100 In Saline 1 100ml.bag @ 400 mls/hr IVPB Q12HR [facility] Rx#:[id number] Intake, IV Titration 1479.514 194.917 Amount Furosemide 100 mg In 174.5 54.667 Sodium Chloride 0.9% 90 ml @ 10 MG/HR 10 mls/hr IV .Q10H [facility] Rx#: [id number] Mvi, Adult No.4 with Vit 1003.167 K 10 ml Trace (Conc-1Ml/ Dose) 1 ml Sodium Acetate 50 meq Potassium Chloride 50 meq Magnesium Sulfate gm 1 gm Calcium Gluconate 3 gm Sodium Chloride 4Meq/ml Vial 28 meq In Amino Acids 5 %/ Dextrose 20 % 1,000 ml @ 65 mls/hr IV .BY DURATION [facility] Rx#:[id number] Norepinephrine 32 mg In 301.847 Sodium Chloride 0.9% 218 ml @ 0.5 MCG/KG/MIN 25. 547 mls/hr IV .Q9H48M [facility] Rx#:[id number] Vasopressin 60 unit In 140.25 Sodium Chloride 0.9% 150 ml @ 0.04 UNITS/MIN 6.12 mls/hr IV .Q24H [facility] Rx#: [id number] Tube Feeding 60 70 Other 30 60 Output: Urine 1750 3525 325 Other: Voiding Method Indwelling Catheter Indwelling Catheter ABP, PAP, CO, CI - Last Documented Arterial Blood Pressure 132/88 - Exam GENERAL: The patient is lying in bed and does not appear in acute distress. LUNG:Trach on ventilator. NEUROLOGICAL: Not on sedation. Higher mental function: The patient is comatose. Is GCS 3( E1, VT1, M1). Cranial nerves: I had to manually open her eyes. Primary gaze is midline. The pupils are round, equal and pinpoint. +ve corneal reflex bilaterally. No facial weakness. Is breathing over the vent upon taking the vent setting from AC 30 to 8 and was breathing around 18. Motor: The strength is limited but no withdrawal to painful stimuli. No spontanous movement. Sensation: Unable to assess light touch. - Labs CBC & Chem 7: 08/31/22 10:20 09/01/22 06:00 Labs: Abnormal Lab Results - Last 24 Hours (Table) 08/31/22 08/31/22 08/31/22 Range/Units 13:32 13:37 16:14 ABG pH (7.35-7.45) ABG Total CO2 (19-24) mmol/L Sodium (137-145) mmol/L Chloride (98-107) mmol/L Carbon Dioxide (22-30) mmol/L BUN (7-17) mg/dL Creatinine (0.52-1.04) mg/dL Glucose (74-99) mg/dL POC Glucose (mg/dL) <20 L 191 H 199 H (70-110) mg/dL Calcium (8.4-10.2) mg/dL 08/31/22 09/01/22 09/01/22 Range/Units 20:50 00:29 05:20 ABG pH (7.35-7.45) ABG Total CO2 (19-24) mmol/L Sodium (137-145) mmol/L Chloride (98-107) mmol/L Carbon Dioxide (22-30) mmol/L BUN (7-17) mg/dL Creatinine (0.52-1.04) mg/dL Glucose (74-99) mg/dL POC Glucose (mg/dL) 189 H 259 H 268 H (70-110) mg/dL Calcium (8.4-10.2) mg/dL 09/01/22 09/01/22 09/01/22 Range/Units 06:00 06:26 08:43 ABG pH 7.34 L (7.35-7.45) ABG Total CO2 25 H (19-24) mmol/L Sodium 126 L (137-145) mmol/L Chloride 96 L (98-107) mmol/L Carbon Dioxide 21 L (22-30) mmol/L BUN 86 H (7-17) mg/dL Creatinine 1.65 H (0.52-1.04) mg/dL Glucose 266 H (74-99) mg/dL POC Glucose (mg/dL) 287 H (70-110) mg/dL Calcium 7.5 L (8.4-10.2) mg/dL 09/01/22 Range/Units 11:25 ABG pH (7.35-7.45) ABG Total CO2 (19-24) mmol/L Sodium (137-145) mmol/L Chloride (98-107) mmol/L Carbon Dioxide (22-30) mmol/L BUN (7-17) mg/dL Creatinine (0.52-1.04) mg/dL Glucose (74-99) mg/dL POC Glucose (mg/dL) 226 H (70-110) mg/dL Calcium (8.4-10.2) mg/dL Microbiology - Last 24 Hours (Table) 08/29/22 13:29 Blood Culture - Preliminary Blood No Growth after 48 hours Assessment and Plan Assessment: * 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 keppra, Vimpat and Dilantin. Also has tried IV versed and IV ativan without improvement. IV sedation has been off since 08/30/22 * Altered mental status multifactorial as mentioned below. Patient seizure and it seems partial status, septic encephalopathy, medication induced (versed and Ativan--off since 08/30/22 close to afternoon/management liaison). Also has some component of metabolic encephalopathy and hepatic encephalopathy. * Probable perforated viscus with pneumoperitoneum. * Septicemia, with leukocytosis and blood culture persistently positive with enterococcus faecium. Blood cultures positive as of 08/23/2022. White cells slightly worse today 21,000. * Hepatic encephalopathy with initial elevated ammonia and trending down. * Septic shock requiring high-dose pressors and seems has urinary tract infection with urine culture positive for Enterococcus faecalis and Pseudomonas aeruginosa as well as systemic candidiasis * Atrial fibrillation on eliquis (which has hx of afib) , currently on hold. * Acute on chronic hypoxemic respiratory failure secondary to diastolic congestive heart failure requiring intubation mechanical ventilation * Acute on chronic kidney disease * History of TIAs/stroke * History of coronary artery disease with stent * Hypertension * Hyperlipidemia * Diabetes mellitus * Anemia * Hypocalcemia--resolved Plan: * I will obtain a repeat CT head and repeat routine EEG. * Clinically it appears partial status has resolved. No focal twitches noticed at this time. * Patient has multiple 2.5 hour EEG's and routine EEG's. Most recent 2.5 hour EEG on 08/30/22 reported as: Markedly abnormal 2.5 hour video EEG. This EEG demonstrates the patient to be in partial status epilepticus originating from the left posterior quadrant. Also burst suppression pattern was seen. The burst suppression pattern indicating severe diffuse cerebral dysfunction which may be in part due to medication effect. Based on maximum amplitude of the ictal discharges these findings indicate the presence of epileptiform focus more than one up of home focus cannot be excluded involving the left parietal region. The left parietal occipital region, greater involvement of the left hemisphere for an additional independent epileptiform focus involving the right posterior quadrant is not necessarily excluded. * Patient already on high dose Vimpat 150 mg twice a day, Keppra 1000 mg twice a day (both of them adjusted for current renal functions). Also on Dilantin 300mg every 12 hours. On Versed 9 mg per hour and been on Versed since 08/25/22 and IV Ativan 8mg/hr since yesterday. Once been on Ativan close to 24 hours will turn off both Atian and Versed and will get repeat 2.5 hour EEG and assess if any improvement. * Cannot give Depakote because of hyperammonemia. Her Keppra level on 08/26/22: 68.9 (normal is 3-60). * Continue Ativan 1-2 mg every 4 hours when necessary seizure. * Repeat CT head 08/24/2022, which did not reveal any acute intracranial process. However there is possible bilateral mastoiditis and middle ear infections spread. Correlate clinically. Patchy paranasal sinus disease. I personally reviewed CT head, and there is evidence of air-fluid level in the left maxillary sinus. Agree with evidence of possible bilateral mastoiditis and fluid in the middle ear. I discussed with PCP about possibility of lumbar puncture. ID is also on board. Patient currently on Eraxis, Zerbaxa, daptomycin. Per ID, patient is already covered well for meningitis. * Patient's initial Ammonia was 214. Latest was 50. Patient on lactulose. * CT abdomen revealed possibility of perforated viscus. Surgery on board. Patient was considered not a candidate for surgery because of hemodynamic instability. * Patient is on high dose pressors * Hypocalcemia--improving, Recommend appropriate treatment as per IM and critical care. * We'll defer the rest of medical management to primary and ICU team * The patient condition is very critical. Prognosis appears very poor at this time. * I had length discussion with the patient's and daughter who are at bedside. I also discussed with primary team. Also discussed with nurse. From neurological perspective patient has super-refractory status epileptic even though was on IV Versed since 08/25/22 and IV Ativan for about 24 hours not including 3 drugs (Keppra, Dilantin and Vimpat). I feel the use of IV Versed and Ativan even though has been together for 24 hours has not shown any benefit. Her condition is very poor. Therefore, I have updated the patient's daughter via phone and she would like the sedation (Ativan or Versed drip to be held) until clinical seizure and her father can witness them and stated he is in agreement with plan. Patient has been off sedation since 08/30/22. But if continues to clinically seizure will like to resume IV Sedation. The plan is discussed with , daughter, primary team and ICU nurse. Will continue to follow. Time with Patient: Less than 30
--- NOTE | 2022-09-01 12:24 | P.PN ---
Subjective Progress Note Date: 09/01/22 CHIEF COMPLAINT: Abdominal pain HISTORY OF PRESENT ILLNESS: Patient remains in the ICU and on mechanical ventilation. Patient had tracheostomy placed on 08/25/2022. Patient was unable to have PEG tube placed because light reflex was not visualized during EGD. Patient had been started on tube feeds via NG tube yesterday. She had high residuals. Tube feeds were discontinued. NG tube placed to suction. She's currently on TPN for nutrition. Patient has been stooling. Abdomen is more distended today. Troponins on Levophed and vasopressin for blood pressure support. She's on a Lasix drip. Afebrile. WBC from yesterday 21.3. Neuro has ordered another computed tomography scan of the brain and EEG Patient seen and examined with Dr. Head PHYSICAL EXAM: VITAL SIGNS: Reviewed GENERAL: On mechanical ventilation. Head is atraumatic, normocephalic. No nasal drainage. Tracheostomy site clean dry and intact NECK: Supple without lymphadenopathy. CHEST: Non-labored respirations and equal bilateral excursions. CARDIOVASCULAR: Palpable 2+ radial pulses. ABDOMEN: More distended. Tympanic. MUSCULOSKELETAL: No clubbing or cyanosis. ASSESSMENT: 1. Colon perforation 2. Sigmoid volvulus 3. Constipation 4. Sepsis and septic shock 5. UTI 6. Lactic acidosis 7. Acute on chronic kidney disease 8. History of atrial fibrillation 9. History of CVA 9. Hypokalemia 10. Hypocalcemia 11. Blood culture with yeast 12. Hepatic encephalopathy with elevated ammonia 13. Severe protein calorie malnutrition PLAN: -Agree with discontinuing tube feeds -Keep NG tube to suction -TPN for nutrition support -Continue supportive care -Continue ICU Physician Content Writer note has been reviewed by physician. Signing provider agrees with the documented findings, assessment, and plan of care. Objective - Vital Signs Vital signs: Vital Signs Temp 97.3 F L 09/01/22 04:00 Pulse 93 09/01/22 10:13 Resp 30 H 09/01/22 07:00 BP 134/55 09/01/22 07:00 Pulse Ox 96 09/01/22 07:00 FiO2 45 09/01/22 09:39 Intake & Output 08/31/22 09/01/22 09/01/22 18:59 06:59 18:59 Intake Total 1054 2627.514 277.917 Output Total 1750 3525 325 Balance -696 -897.486 -47.083 Weight 149 kg 144.6 kg Intake: IV 964 1018 83 0.9% @ KVO 225 165 15 Anidulafungin 100 mg In 100 Sodium Chloride 0.9% 100 ml @ 84 mls/hr IVPB DAILY [facility] Rx#:[id number] Ceftolozane/Tazobactam 0. 100 100 75 gm In Sodium Chloride 0.9% 100 ml @ 100 mls/hr IV Q8HR [facility] Rx#:[id number] Lacosamide IV 150 mg In 50 50 Sodium Chloride 0.9% 50 ml @ 100 mls/hr IVPB BID [facility] Rx#:[id number] Linezolid 600 mg In 300 Dextrose/Water 1 300ml. bag @ 150 mls/hr IVPB Q12H [facility] Rx#:[id number] Mvi, Adult No.4 with Vit 65 K 10 ml Trace (Conc-1Ml/ Dose) 1 ml Sodium Acetate 50 meq Potassium Chloride 50 meq Magnesium Sulfate gm 1 gm Calcium Gluconate 3 gm In Amino Acids 5 %/Dextrose 20 % 1 ,000 ml @ 65 mls/hr IV . BY DURATION [facility] Rx#: [id number] Normal Saline: Pressure 39 33 3 Bag Phenytoin Sodium Inj 300 50 50 mg In Sodium Chloride 0.9 % 50 ml @ 80 mls/hr IVPB Q12H [facility] Rx#:[id number] Sodium Acetate 30 meq 455 65 Potassium Chloride 30 meq Magnesium Sulfate gm 0.5 gm Calcium Gluconate 2 gm In Amino Acids 5 %/ Dextrose 20 % 1,000 ml @ 65 mls/hr IV .BY DURATION [facility] Rx#:[id number] levETIRAcetam IV 1,000 mg 100 100 In Saline 1 100ml.bag @ 400 mls/hr IVPB Q12HR [facility] Rx#:[id number] Intake, IV Titration 1479.514 194.917 Amount Furosemide 100 mg In 174.5 54.667 Sodium Chloride 0.9% 90 ml @ 10 MG/HR 10 mls/hr IV .Q10H [facility] Rx#: [id number] Mvi, Adult No.4 with Vit 1003.167 K 10 ml Trace (Conc-1Ml/ Dose) 1 ml Sodium Acetate 50 meq Potassium Chloride 50 meq Magnesium Sulfate gm 1 gm Calcium Gluconate 3 gm Sodium Chloride 4Meq/ml Vial 28 meq In Amino Acids 5 %/ Dextrose 20 % 1,000 ml @ 65 mls/hr IV .BY DURATION [facility] Rx#:[id number] Norepinephrine 32 mg In 301.847 Sodium Chloride 0.9% 218 ml @ 0.5 MCG/KG/MIN 25. 547 mls/hr IV .Q9H48M [facility] Rx#:[id number] Vasopressin 60 unit In 140.25 Sodium Chloride 0.9% 150 ml @ 0.04 UNITS/MIN 6.12 mls/hr IV .Q24H [facility] Rx#: [id number] Tube Feeding 60 70 Other 30 60 Output: Urine 1750 3525 325 Other: Voiding Method Indwelling Catheter Indwelling Catheter ABP, PAP, CO, CI - Last Documented Arterial Blood Pressure 132/88 - Labs CBC & Chem 7: 08/31/22 10:20 09/01/22 06:00 Labs: Abnormal Lab Results - Last 24 Hours (Table) 08/31/22 08/31/22 08/31/22 Range/Units 13:32 13:37 16:14 ABG pH (7.35-7.45) ABG Total CO2 (19-24) mmol/L Sodium (137-145) mmol/L Chloride (98-107) mmol/L Carbon Dioxide (22-30) mmol/L BUN (7-17) mg/dL Creatinine (0.52-1.04) mg/dL Glucose (74-99) mg/dL POC Glucose (mg/dL) <20 L 191 H 199 H (70-110) mg/dL Calcium (8.4-10.2) mg/dL 08/31/22 09/01/22 09/01/22 Range/Units 20:50 00:29 05:20 ABG pH (7.35-7.45) ABG Total CO2 (19-24) mmol/L Sodium (137-145) mmol/L Chloride (98-107) mmol/L Carbon Dioxide (22-30) mmol/L BUN (7-17) mg/dL Creatinine (0.52-1.04) mg/dL Glucose (74-99) mg/dL POC Glucose (mg/dL) 189 H 259 H 268 H (70-110) mg/dL Calcium (8.4-10.2) mg/dL 0309/01/22 09/01/22 Range/Units 06:00 06:26 08:43 ABG pH 7.34 L (7.35-7.45) ABG Total CO2 25 H (19-24) mmol/L Sodium 126 L (137-145) mmol/L Chloride 96 L (98-107) mmol/L Carbon Dioxide 21 L (22-30) mmol/L BUN 86 H (7-17) mg/dL Creatinine 1.65 H (0.52-1.04) mg/dL Glucose 266 H (74-99) mg/dL POC Glucose (mg/dL) 287 H (70-110) mg/dL Calcium 7.5 L (8.4-10.2) mg/dL 09/01/22 Range/Units 11:25 ABG pH (7.35-7.45) ABG Total CO2 (19-24) mmol/L Sodium (137-145) mmol/L Chloride (98-107) mmol/L Carbon Dioxide (22-30) mmol/L BUN (7-17) mg/dL Creatinine (0.52-1.04) mg/dL Glucose (74-99) mg/dL POC Glucose (mg/dL) 226 H (70-110) mg/dL Calcium (8.4-10.2) mg/dL Microbiology - Last 24 Hours (Table) 08/29/22 13:29 Blood Culture - Preliminary Blood No Growth after 48 hours
[2022-09-01] MEDS: MIDAZOLAM HCL 50 MG in SODIUM CHLORIDE 0.9% 40 ML IV SCH (14:58)
--- NOTE | 2022-09-01 15:00 | P.PN ---
Subjective Progress Note Date: 09/01/22 H&P Date: 08/09/22 Chief Complaint: Shortness of breath,Altered mental statConstipation, syncope, hyperglycemia This is a pleasant 87-year-old female with past medical history of CAD, NM, stent placement, aortic stenosis ,chronic hypoxic respiratory failure,on 2 L nasal cannula ,[place] 06/22,COPD, former nicotine dependence, obstructive sleep apnea ,CVA/TIA, diabetes mellitus, hypertension, hyperlipidemia, hypothyroidism, recurrent UTIs,CKD III, urinary retention, anemia, bilateral peripheral neuropathy, gait dysfunction,utilizing walker, falls, morbid obesity-BMI 39.9 and multiple other medical issues brought in via ambulance, on BiPAP to the ER for change in level of consciousness, syncope, nausea, vomiting, hyperglycemia, constipation-on [place], shortness of breath, recently discharged from [facility] subacute rehab on 08/06/2022. Information being obtained from chart and daughter at bedside. Daughter reports they are unsure of her last bowel movement, possibly , 08/03. [facility] documented large bowel movement on 08/04 and 08/05. Reports yesterday blood sugars were running high in the 400s, patient developed nausea and vomiting, change in sensorium, passed out while on the toilet. Reports patient "coughs all the time, but has COPD", no knowledge of fevers, denies chills. Denies chest pain, palpitations, positive shortness of breath. Developed hypotension in the ER in addition to emesis, received fluid bolus .Chest x-ray reported right basilar infiltrate with persistent small right effusion, no overt failure. EKG reported sinus rhythm, troponin negative 1. KUB reported marked gastric distention, additional small bowel loops dilated, possibly retained debris within the rectum and sigmoid colon. 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 NG tube placed in the ER with 1200 MLS bilious output reported overnight. D-dimer elevated 4.73, CT angio chest reported no evidence of pulmonary embolism,more consolidation changes in the right lung base, rule out aspiration. ProBNP 426. UA reported many WBC clumps, 165 WBCs, large leukocytes, negative nitrates, culture pending. Afebrile, on admission temperature 96.7, currently 98.8. WBC 14.3. lactic acid 3.5, repeat level pending. Hemoglobin 10.2, platelets 4:15, a I's within normal limits, BUN 40, creatinine 1.5. BiPAP weaned off, currently requiring 6 L nasal cannula O2 to maintain O2 sats in the low 90s. 08/10/22 Continued to decline throughout the night requiring ICU admission, maintained on vasopressin, Levophed and bicarb drips. Received fluid boluses throughout the night. Lactic acid decreased to 2.1. Low urine output on Lasix IV push. BUN 81, creatinine 2.68. Hyperkalemic, received calcium, insulin, D50, sodium bicarbonate. Chest x-ray reporting stable bilateral lower lobe infiltrate and small effusion. Afebrile, T-max 99.7. Continues on Levaquin, WBC normalized today. Cefepime added to antibiotic regimen today. Preliminary Urine cultures reporting group D enterococcus 50-100,000 colonies and gram-negative bacilli 10 and 49,000 colonies. 07/03 Blood cultures reporting GNB. Hemoglobin 8.2, platelets 311. 08/11/2022 Vent dependent, FiO2 60%/+5 of PEEP. Chest x-ray reports stable, no change in bibasilar opacities, pleural effusion unchanged. Continues on the Levophed and vasopressin drips. Febrile to the night, T-max 102.4, WBC increased to 12.2. Lactic acid trended up during the night, received fluid boluses, currently at 3.2. Developed atrial fibrillation with RVR, bolused with amiodarone and currently on amiodarone drip. Urine culture reporting enterococcus faecalis and Pseudomonas aeruginosa.Films reviewed by general surgery, reporting sigmoid volvulus. Recommending conservative management. BUN 79, creatinine 2.74. Hyperglycemic. Hemoglobin 8.6, platelets 349. Anticoagulation remains on hold. 08/21/2022 remains vent dependent, FiO2 50%/+5 of PEEP. Maintained on high doses of levophed, vasopressin. Amiodarone and bicarb drips continue. Receiving IV albumin to be followed by Lasix. Worsening renal function. Staff reports no urine output 24 hours. Bicarb 16, BUN 76, creatinine 1.73. Repeat CT of abdomen and pelvis completed yesterday, reporting moderate volume pneumo peritoneum, suspected perforation of distal colonic bowel, extensive distal bowel pneumatosis. Surgery discussed findings with family, high risk for surgical intervention. Family decided against surgical intervention,but to continue with nonsurgical care. T-max 100.6. Maintained on Zerbaxa, Eraxis, daptomycin .Seizure-like activity reported yesterday afternoon, placed on Keppra, reoccurred in the snow technician hours 2. Brain CT reported no acute intracranial process .EEG completed, results pending. 08/22/2022 vent dependent, 40% FiO2, +5 of PEEP. Staff reports patient desats quickly with turning. Chest x-ray reporting bibasilar atelectasis, consolidation, minimally increased, possible tiny right basilar pleural effusion. Continues on high doses of pressors, digits dusky. Maintained on bicarb drip. Telemetry atrial fibrillation, fast ventricular rate on amiodarone drip. Remains on antibiotics as per infectious disease.BUN 83, creatinine 1.79. T-max 102, WBC decreased, 16.5 08/23/2022 FiO2 50%/+5 of PEEP. Chest x-ray reported no significant change .Continues on pressor support. Maintained on amiodarone drip, heart rates currently in the 1 teens to 120s. Continues on daptomycin, Zerbexa and Eraxis.T-max 100.9, WBC 15.3. BUN 83, creatinine 2.13. WBC decreased to 15.3. Receiving IV albumin, Albumin currently 1.6. Ionized calcium 3.4, receiving supplementation. 08/24/2022 continues in A. fib, heart rates 110 to 130s on amiodarone drip. Seizure activity yesterday reported with facial twitching lasting approximately half an hour EEG performed-reported abnormal 2-1/2 hour EEG suggesting epileptiform focus involving midline occipital parietal region. Vimpat and Keppra doses increased. Continue to have seizure activity today, right-sided face twitching, trembling of arm reported, repeat EEG in progress. Versed drip initiated. Brain Ct pending. Maximized on both norepi and vasopressin. Digits dusky, declining comfort care at this time. Continues on bicarb drip. Remains vent dependent on FiO2 50%/+5 of PEEP. Now trach and PEG are being considered. 08/25/2022 maximized on pressors, levophed and vasopressin. Mechanical ventilator-dependent, FiO2 50%/+5 of PEEP. Chest x-ray reporting worsening bibasilar consolidation ,bilateral pneumonia. Family meeting via phone this morning with Dr. Hartman PCP, regarding poor prognosis, futile condition. Scheduled for tracheostomy and PEG-consent pending. Continues on amiodarone, bicarb drips. TPN. Continues to have seizure activity, on Versed drip, Dilantin added to med regimen. Afebrile, worsening WBC, 21.7, potassium 3, receiving supplementation. BUN 79, creatinine 1.87. Ionized calcium 3.4, supplemented. 08/28/2022 Remains vent dependent, FiO2 45%/+10 of PEEP status post tracheostomy 08/25. Nebulized bronchodilators, IV steroids. Receiving TPN/lipids. Requiring insulin drip for hyperglycemia, blood sugars currently ranging 160s to 170s.Ongoing seizures, continues on Versed drip, Dilantin, Keppra, Vimpat. EEG repeated yesterday, reported severely abnormal, suppression worsening-seen with severe anoxic or toxic metabolic encephalopathy, nonconvulsive generalized status epilepticus cannot be ruled out. Maintained on vasopressin, Levophed and Lasix drips. Antibiotics as per infectious disease. Afebrile, WBC 22.4. 08/29/2022 remains vent dependent, FiO2 45%/+10 of PEEP. Chest x-ray reporting bilateral infiltrates and pleural effusion, pneumonia versus CHF. PEG tube unable to be placed, please refer to the surgeon's note.Maintained on vasopressin, Levophed Lasix, Versed and Ativan drips. Repeat EEG pending. Continues on antibiotics of Eraxis, Zyvox and Zerbaxa. Afebrile, WBC 22.6. Hemoglobin 6.5, receiving one unit of packed RBCs. Platelets 255. 08/30/2022 remains vent dependent, FiO2 45%/+10 of PEEP. Chest x-ray reporting stable bilateral infiltrates and pleural effusion. Continues on TPN, Lasix drip, norepinephrine, vasopressin. Maintained on Eraxis, Zyvox and Zerbaxa. Afebrile, WBC 20.7. Ammonia 50.EEG yesterday -refer to neurology report.Versed and Ativan drips turned off, 2 hour EEG recently started. Received one unit of packed RBCs yesterday with current hemoglobin 8.1, platelets 221. Sodium decreased to 126. Bicarb 21, BUN 81, creatinine 1.62. Albumin 1.6. Nephrology discussing renal replacement therapy secondary to fluid volume overload if family continues with aggressive therapy. 08/31/22 continues on vasopressor support, antifungal/antibiotics, oral antiarrhythmics, TPN, IV steroids, nebulized bronchodilators, IV diuretics, seizure management including Versed and Ativan drips,lactulose, mechanical ventilation with FiO2 45% status post 10 of PEEP. Chest x-ray reporting potentially developing mild pulmonary vascular congestion, ongoing right greater than left bibasilar consolidation/atelectasis and small effusions. Maintained on Lasix drip, severe volume overload. Nephrology discussing potential SLED as requesting to continue with current aggressive treatment at this time. 09/01/2022 Tube feeds stopped as patient developed high residuals during the night, maintained on TPN. No clinical seizure activity reported. Neurology workup continues, EEG recently repeated, results pending. Remains vent dependent, FiO2 40%/+10 of PEEP, pressor dependent and on IV Lasix. BUN 86, creatinine 1.65. Continues on antibiotics/antifungal. Afebrile. Family undecided regarding SLED/renal replacement treatment option discussed as per nephrology. Objective - Vital Signs Vital signs: Vital Signs Temp 97.4 F L 09/01/22 12:00 Pulse 87 09/01/22 13:30 Resp 30 H 09/01/22 13:30 BP 114/89 09/01/22 13:30 Pulse Ox 99 09/01/22 13:30 FiO2 45 09/01/22 12:22 Intake & Output 08/31/22 09/01/22 09/01/22 18:59 06:59 18:59 Intake Total 1054 2627.514 1517.917 Output Total 1750 3525 1950 Balance -696 -897.486 -432.083 Weight 149 kg 144.6 kg 144.6 kg Intake: IV 964 1018 891 0.9% @ KVO 225 165 105 Anidulafungin 100 mg In 100 100 Sodium Chloride 0.9% 100 ml @ 84 mls/hr IVPB DAILY [facility] Rx#:[id number] Ceftolozane/Tazobactam 0. 100 100 100 75 gm In Sodium Chloride 0.9% 100 ml @ 100 mls/hr IV Q8HR [facility] Rx#:[id number] Lacosamide IV 150 mg In 50 50 50 Sodium Chloride 0.9% 50 ml @ 100 mls/hr IVPB BID [facility] Rx#:[id number] Linezolid 600 mg In 300 300 Dextrose/Water 1 300ml. bag @ 150 mls/hr IVPB Q12H [facility] Rx#:[id number] Mvi, Adult No.4 with Vit 65 K 10 ml Trace (Conc-1Ml/ Dose) 1 ml Sodium Acetate 50 meq Potassium Chloride 50 meq Magnesium Sulfate gm 1 gm Calcium Gluconate 3 gm In Amino Acids 5 %/Dextrose 20 % 1 ,000 ml @ 65 mls/hr IV . BY DURATION [facility] Rx#: [id number] Normal Saline: Pressure 39 33 21 Bag Phenytoin Sodium Inj 300 50 50 50 mg In Sodium Chloride 0.9 % 50 ml @ 80 mls/hr IVPB Q12H [facility] Rx#:[id number] Sodium Acetate 30 meq 455 65 Potassium Chloride 30 meq Magnesium Sulfate gm 0.5 gm Calcium Gluconate 2 gm In Amino Acids 5 %/ Dextrose 20 % 1,000 ml @ 65 mls/hr IV .BY DURATION [facility] Rx#:[id number] levETIRAcetam IV 1,000 mg 100 100 100 In Saline 1 100ml.bag @ 400 mls/hr IVPB Q12HR [facility] Rx#:[id number] Intake, IV Titration 1479.514 194.917 Amount Furosemide 100 mg In 174.5 54.667 Sodium Chloride 0.9% 90 ml @ 10 MG/HR 10 mls/hr IV .Q10H [facility] Rx#: [id number] Mvi, Adult No.4 with Vit 1003.167 K 10 ml Trace (Conc-1Ml/ Dose) 1 ml Sodium Acetate 50 meq Potassium Chloride 50 meq Magnesium Sulfate gm 1 gm Calcium Gluconate 3 gm Sodium Chloride 4Meq/ml Vial 28 meq In Amino Acids 5 %/ Dextrose 20 % 1,000 ml @ 65 mls/hr IV .BY DURATION [facility] Rx#:[id number] Norepinephrine 32 mg In 301.847 Sodium Chloride 0.9% 218 ml @ 0.5 MCG/KG/MIN 25. 547 mls/hr IV .Q9H48M [facility] Rx#:[id number] Vasopressin 60 unit In 140.25 Sodium Chloride 0.9% 150 ml @ 0.04 UNITS/MIN 6.12 mls/hr IV .Q24H [facility] Rx#: [id number] Tube Feeding 60 70 TPN/PPN 390 TPN 390 Lipid 42 Fat Emulsion 20% 250 ml 42 In Empty Bag 1 bag @ 21 mls/hr IV TuFr [facility] Rx#: [id number] Other 30 60 Output: Urine 1750 3525 1950 Other: Voiding Method Indwelling Catheter Indwelling Catheter ABP, PAP, CO, CI - Last Documented Arterial Blood Pressure 105/80 - Exam GENERAL EXAM: on mechanical ventilation/tracheostomy. HEENT: Normocephalic. NECK: supple, unable to assess for JVD. LUNGS: Equal air entry, diminished, scattered rhonchi CV: S1 and S2 normal with no audible murmur, irregular rhythm. ABDOMEN:Distended, unable to auscultate bowel sounds SKIN: Edematous CENTRAL NERVOUS SYSTEM: Unable to assess, on mechanical ventilation EXTREMITIES: Positive peripheral edema, darker-dusky digits. Microbiology 08/29/22 13:29 Blood Blood Culture - Preliminary No Growth after 48 hours 08/23/22 11:40 Blood Blood Culture Gram Stain - Final 08/23/22 11:40 Blood Blood Culture - Final Enterococcus faecium VRE 08/19/22 22:00 Blood Blood Culture Gram Stain - Final 08/19/22 22:00 Blood Blood Culture - Final Enterococcus faecium 08/19/22 18:00 Stool Stool Culture - Final 08/23/22 11:40 Blood Blood Culture - Final 08/19/22 21:07 Sputum Gram Stain - Final 08/19/22 21:07 Sputum Sputum Culture - Final Methicillin resist S. aureus Ange albicans 08/19/22 22:00 Blood Blood Culture - Final 08/14/22 15:00 Blood Blood Culture - Final No Growth after 144 hours 08/10/22 17:00 Blood Blood Culture - Final No Growth after 144 hours 08/08/22 13:30 Blood Blood Culture Gram Stain - Final 08/08/22 13:30 Blood Blood Culture - Final Anaerobic Gm Negative Bacilli 08/09/22 14:19 Blood Blood Culture - Final No Growth after 144 hours 08/08/22 13:00 Blood Blood Culture - Final No Growth after 144 hours 08/11/22 16:05 Blood Blood Culture Gram Stain - Final 08/11/22 16:05 Blood Blood Culture - Final Ange albicans 08/11/22 17:06 Sputum Gram Stain - Final 08/11/22 17:06 Sputum Sputum Culture - Final Ange albicans 08/11/22 16:05 Blood Blood Culture - Final 08/08/22 13:10 Urine,Voided Urine Culture - Final Enterococcus faecalis Pseudomonas aeruginosa 08/08/22 13:30 Blood Blood Culture - Final - Labs CBC & Chem 7: 08/31/22 10:20 09/01/22 06:00 Labs: Abnormal Lab Results - Last 24 Hours (Table) 08/31/22 08/31/22 09/01/22 Range/Units 16:14 20:50 00:29 ABG pH (7.35-7.45) ABG Total CO2 (19-24) mmol/L Sodium (137-145) mmol/L Chloride (98-107) mmol/L Carbon Dioxide (22-30) mmol/L BUN (7-17) mg/dL Creatinine (0.52-1.04) mg/dL Glucose (74-99) mg/dL POC Glucose (mg/dL) 199 H 189 H 259 H (70-110) mg/dL Calcium (8.4-10.2) mg/dL 09/01/22 09/01/22 09/01/22 Range/Units 05:20 06:00 06:26 ABG pH 7.34 L (7.35-7.45) ABG Total CO2 25 H (19-24) mmol/L Sodium 126 L (137-145) mmol/L Chloride 96 L (98-107) mmol/L Carbon Dioxide 21 L (22-30) mmol/L BUN 86 H (7-17) mg/dL Creatinine 1.65 H (0.52-1.04) mg/dL Glucose 266 H (74-99) mg/dL POC Glucose (mg/dL) 268 H (70-110) mg/dL Calcium 7.5 L (8.4-10.2) mg/dL 09/01/22 09/01/22 Range/Units 08:43 11:25 ABG pH (7.35-7.45) ABG Total CO2 (19-24) mmol/L Sodium (137-145) mmol/L Chloride (98-107) mmol/L Carbon Dioxide (22-30) mmol/L BUN (7-17) mg/dL Creatinine (0.52-1.04) mg/dL Glucose (74-99) mg/dL POC Glucose (mg/dL) 287 H 226 H (70-110) mg/dL Calcium (8.4-10.2) mg/dL Microbiology - Last 24 Hours (Table) 08/29/22 13:29 Blood Culture - Preliminary Blood No Growth after 48 hours Assessment and Plan Assessment: Sepsis, septic shock with multisystem organ failure secondary to acute enterococcus faecalis and Pseudomonas aeruginosa UTI, with acute VRE bacteremia ,abdominal sepsis. Systemic candidiasis. Hypotension, severe, secondary to the above, pressor dependent Septic, metabolic encephalopathy Seizure activity, workup in progress, neurology following Acute on chronic hypoxic respiratory failure, ventilator dependent, secondary to all the above, status post tracheostomy 08/25 Acute on chronic CHF exacerbation, diastolic dysfunction secondary to volume overload Hyponatremia Hyperammonium Hypocalcemia secondary to acute renal failure, improving Chronic changes of the right lower lobe and small right pleural effusion as per pulmonary Acute on CKD III, secondary to ATN related to the above Persistent Atrial fibrillation with RVR, status post amiodarone drip, In a patient with history of chronic atrial fibrillation. Metabolic acidosis, status post bicarb drip Abdominal pain, constipation, last bowel movement reported 08/05.Films reviewed by general surgery, reporting sigmoid volvulus. Continued clinical worsening;Probable perforated viscus with pneumoperitoneum reported per CT on 08/20/2022. Leukocytosis Diabetes mellitus, family reports hyperglycemic at home, A1c 6. Recent COVID-19 infection, 06/22 COPD, history of Valvular heart disease, moderate aortic stenosis, preserved LV function Chronic anemia Generalized weakness, gait dysfunction, multiple falls recently reported, recently discharged from [facility] subacute rehab. 08/06/22. History of CVA, TIA History of Hypertension Hyperlipidemia Hypothyroidism Morbid obesity, BMI 56.7 No code, no CPR, no reintubation Plan: Continue on current medication regime ,monitoring and symptomatic treatment. Family updated at bedside. Multiple consults following/ICU ma nagement as per forest patrolman. Prognosis poor given multiple complex medical issues. The impression and plan of care has been dictated as directed. : I performed a history and examination of this patient, discussed the same with the dictator. I agree with the dictator's note ,documented as a scribe. Any additional findings or plans will be noted.
[2022-09-01 15:30] LABS: Glucose,Whole Blood 161 mg/dL (70-110)
[2022-09-01] MEDS ORDERED: 1: MVI, ADULT NO.4 WITH VIT K 10 ML, TRACE (CONC-1ML/DOSE) 1 ML, SODIUM ACETATE 50 MEQ, IV SCH ×8 (20:00)
--- NOTE | 2022-09-01 20:48 | EEG ---
ELECTROENCEPHALOGRAM REPORT RELEVANT MEDICATIONS: 1. Vimpat. 2. Keppra. 3. Dilantin. 4. IV Versed. 5. IV Ativan. A drip has been held for 2 days. EEG TYPE: A routine 21-channel EEG is performed with video using the 10/20 electrode placement system. DESCRIPTION: The background is the patient has burst suppression pattern. During the suppression, suppression lasts between 10 to 70 seconds. For the most part, it lasts between 30 to 40 seconds and it is diffuse suppression. During burst activity lasting between 3 to 120 seconds. The patient has 1-2 hertz high amplitude polyspike left central parietal, but there is broad field to the left hemisphere as well as right hemisphere, but in the right hemisphere mostly central region. There is multiple left central parietal delta rhythmicity with evolution to the right central. ACTIVATION PROCEDURE: Photic stimulation and hyperventilation are not performed. CLINICAL INTERPRETATION: This is an abnormal routine EEG. The patient continues to have burst suppression with discharges. 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 The patient's suppression is likely due to status epilepticus vs anoxia brain injury. The background slowing is suggestive of severe encephalopathy. The patient's EEG seems to be about the same compared to prior study. Clinical correlation is recommended. MMODL / IJN: [id number] / MTDD
[2022-09-01 21:19] LABS: Glucose,Whole Blood 177 mg/dL (70-110)
[2022-09-01] MEDS: INSULIN DETEMIR (LEVEMIR) 100 UNIT/ML SYR SQ SCH (21:21)
--- NOTE | 2022-09-01 21:46 | P.PN ---
Subjective Progress Note Date: 09/01/22 Principal diagnosis: Sepsis/septic shock Patient is a 87-year-old female with multiple comorbidities presented to the hospital with a syncopal episode weakness subsequently hypotension, sepsis requiring transfer to the ICU and intubation on the vent. She patient did have a CT of abdominal pelvis completed on 08/20/2022 with evidence of pneumoperitoneum Gen. surgery discussed with the family currently being treated medically On today's evaluation that is 09/01/2022, the patient remains to be afebrile, the patient continues to be on pressor support to maintain her blood pressure per the nursing staff, the patient FiO2 is stable at 45 %, no purulent secretions through the ET , patient did have NG to suction, tube feeds has been put on hold as the patient did have abdominal distention patient did have a fecal management system for her diarrhea Objective - Vital Signs Vital signs: Vital Signs Temp 97.3 F L 09/01/22 04:00 Pulse 93 09/01/22 10:03 Resp 30 H 09/01/22 07:00 BP 134/55 09/01/22 07:00 Pulse Ox 96 09/01/22 07:00 FiO2 45 09/01/22 09:39 Intake & Output 08/31/22 09/01/22 09/01/22 18:59 06:59 18:59 Intake Total 1054 2627.514 83 Output Total 1750 3525 325 Balance -696 -897.486 -242 Weight 149 kg 144.6 kg Intake: IV 964 1018 83 0.9% @ KVO 225 165 15 Anidulafungin 100 mg In 100 Sodium Chloride 0.9% 100 ml @ 84 mls/hr IVPB DAILY [facility] Rx#:[id number] Ceftolozane/Tazobactam 0. 100 100 75 gm In Sodium Chloride 0.9% 100 ml @ 100 mls/hr IV Q8HR [facility] Rx#:[id number] Lacosamide IV 150 mg In 50 50 Sodium Chloride 0.9% 50 ml @ 100 mls/hr IVPB BID [facility] Rx#:[id number] Linezolid 600 mg In 300 Dextrose/Water 1 300ml. bag @ 150 mls/hr IVPB Q12H [facility] Rx#:[id number] Mvi, Adult No.4 with Vit 65 K 10 ml Trace (Conc-1Ml/ Dose) 1 ml Sodium Acetate 50 meq Potassium Chloride 50 meq Magnesium Sulfate gm 1 gm Calcium Gluconate 3 gm In Amino Acids 5 %/Dextrose 20 % 1 ,000 ml @ 65 mls/hr IV . BY DURATION [facility] Rx#: [id number] Normal Saline: Pressure 39 33 3 Bag Phenytoin Sodium Inj 300 50 50 mg In Sodium Chloride 0.9 % 50 ml @ 80 mls/hr IVPB Q12H [facility] Rx#:[id number] Sodium Acetate 30 meq 455 65 Potassium Chloride 30 meq Magnesium Sulfate gm 0.5 gm Calcium Gluconate 2 gm In Amino Acids 5 %/ Dextrose 20 % 1,000 ml @ 65 mls/hr IV .BY DURATION [facility] Rx#:[id number] levETIRAcetam IV 1,000 mg 100 100 In Saline 1 100ml.bag @ 400 mls/hr IVPB Q12HR [facility] Rx#:[id number] Intake, IV Titration 1479.514 Amount Furosemide 100 mg In 174.5 Sodium Chloride 0.9% 90 ml @ 10 MG/HR 10 mls/hr IV .Q10H [facility] Rx#: [id number] Mvi, Adult No.4 with Vit 1003.167 K 10 ml Trace (Conc-1Ml/ Dose) 1 ml Sodium Acetate 50 meq Potassium Chloride 50 meq Magnesium Sulfate gm 1 gm Calcium Gluconate 3 gm Sodium Chloride 4Meq/ml Vial 28 meq In Amino Acids 5 %/ Dextrose 20 % 1,000 ml @ 65 mls/hr IV .BY DURATION [facility] Rx#:[id number] Norepinephrine 32 mg In 301.847 Sodium Chloride 0.9% 218 ml @ 0.5 MCG/KG/MIN 25. 547 mls/hr IV .Q9H48M [facility] Rx#:[id number] Tube Feeding 60 70 Other 30 60 Output: Urine 1750 3525 325 Other: Voiding Method Indwelling Catheter Indwelling Catheter ABP, PAP, CO, CI - Last Documented Arterial Blood Pressure 132/88 - Exam GENERAL DESCRIPTION: An elderly female intubated on the vent RESPIRATORY SYSTEM: Unlabored breathing , decreased breath sounds at bases HEART: S1 S2 regular rate and rhythm , ABDOMEN: Soft , abdominal distention EXTREMITIES: Diffuse swelling bilateral lower extremity no redness - Labs CBC & Chem 7: 08/31/22 10:20 09/01/22 06:00 Labs: Abnormal Lab Results - Last 24 Hours (Table) 08/31/22 08/31/22 08/31/22 Range/Units 10:20 10:20 13:32 WBC 21.3 H (3.8-10.6) k/uL RBC 3.11 L (3.80-5.40) m/uL Hgb 8.8 L (11.4-16.0) gm/dL Hct 27.5 L (34.0-46.0) % RDW 19.2 H (11.5-15.5) % ABG pH (7.35-7.45) ABG Total CO2 (19-24) mmol/L Sodium (137-145) mmol/L Chloride (98-107) mmol/L Carbon Dioxide (22-30) mmol/L BUN (7-17) mg/dL Creatinine (0.52-1.04) mg/dL Glucose (74-99) mg/dL POC Glucose (mg/dL) <20 L (70-110) mg/dL Calcium (8.4-10.2) mg/dL Ammonia 60 H (<30) umol/L 08/31/22 08/31/22 08/31/22 Range/Units 13:37 16:14 20:50 WBC (3.8-10.6) k/uL RBC (3.80-5.40) m/uL Hgb (11.4-16.0) gm/dL Hct (34.0-46.0) % RDW (11.5-15.5) % ABG pH (7.35-7.45) ABG Total CO2 (19-24) mmol/L Sodium (137-145) mmol/L Chloride (98-107) mmol/L Carbon Dioxide (22-30) mmol/L BUN (7-17) mg/dL Creatinine (0.52-1.04) mg/dL Glucose (74-99) mg/dL POC Glucose (mg/dL) 191 H 199 H 189 H (70-110) mg/dL Calcium (8.4-10.2) mg/dL Ammonia (<30) umol/L 09/01/22 09/01/22 09/01/22 Range/Units 00:29 05:20 06:00 WBC (3.8-10.6) k/uL RBC (3.80-5.40) m/uL Hgb (11.4-16.0) gm/dL Hct (34.0-46.0) % RDW (11.5-15.5) % ABG pH (7.35-7.45) ABG Total CO2 (19-24) mmol/L Sodium 126 L (137-145) mmol/L Chloride 96 L (98-107) mmol/L Carbon Dioxide 21 L (22-30) mmol/L BUN 86 H (7-17) mg/dL Creatinine 1.65 H (0.52-1.04) mg/dL Glucose 266 H (74-99) mg/dL POC Glucose (mg/dL) 259 H 268 H (70-110) mg/dL Calcium 7.5 L (8.4-10.2) mg/dL Ammonia (<30) umol/L 09/01/22 09/01/22 Range/Units 06:26 08:43 WBC (3.8-10.6) k/uL RBC (3.80-5.40) m/uL Hgb (11.4-16.0) gm/dL Hct (34.0-46.0) % RDW (11.5-15.5) % ABG pH 7.34 L (7.35-7.45) ABG Total CO2 25 H (19-24) mmol/L Sodium (137-145) mmol/L Chloride (98-107) mmol/L Carbon Dioxide (22-30) mmol/L BUN (7-17) mg/dL Creatinine (0.52-1.04) mg/dL Glucose (74-99) mg/dL POC Glucose (mg/dL) 287 H (70-110) mg/dL Calcium (8.4-10.2) mg/dL Ammonia (<30) umol/L Microbiology - Last 24 Hours (Table) 08/29/22 13:29 Blood Culture - Preliminary Blood No Growth after 48 hours Assessment and Plan (1) Sepsis Current Visit: Yes Status: Acute Code(s): A41.9 - SEPSIS, UNSPECIFIED ORGANISM SNOMED Code(s): 23782580 Plan: 1patient was in the hospital with sepsis and septic shock initially concern for multidrug-resistant Pseudomonas UTI, patient also have a candidemia secondary to possible abdominal source and now with a VRE bacteremia source likely abdominal 2patient did have evidence of colonic perforation and peritonitis being managed medically as the patient considered to be high risk for any surgical procedure 3patient did have persistent VRE bacteremia and could be related to the multiple lines , patient will benefit from removal of those lines to control her bacteremia, patient family has been insisting on blood cultures which has been ordered , results currently pending 4-the patient clinical condition remains to be guarded however the patient did have resolution of her fever and repeat blood culture has been negative so far, the patient white count still elevated could be related to steroids 5- patient to continue with with the current broad-spectrum antibiotics of Zyvox Zerbex and Eraxis and continue supportive care, at the bedside questions were answered Time with Patient: Greater than 30
[2022-09-01 23:47] LABS: Glucose,Whole Blood 178 mg/dL (70-110)
[2022-09-02] MEDS: LINEZOLID 600 MG in DEXTROSE/WATER 1 300ML.BAG IVPB SCH ×2 (01:14→13:20)
[2022-09-02] MEDS: NOREPINEPHRINE 32 MG in SODIUM CHLORIDE 0.9% 218 ML IV SCH ×2 (03:32→18:01)
[2022-09-02 03:58] LABS: Glucose,Whole Blood 172 mg/dL (70-110)
[2022-09-02] MEDS: INSULIN ASPART (NovoLOG) 100 UNIT/ML VIAL SQ SCH ×5 (04:00→19:59)
[2022-09-02 06:30] LABS: Glucose,Whole Blood 146 mg/dL (70-110)
[2022-09-02 06:41] LABS: ABG Base Excess -0.2 mmol/L; ABG HCO3 26 mmol/L (21-25); ABG Oxygen Saturation 96.6 % (94-97); ABG PCO2 50 mmHg (35-45); ABG PH 7.33 (7.35-7.45); ABG PO2 112 mmHg (83-108); ABG TCO2 27 mmol/L (19-24); Allen Test Performed? Yes
[2022-09-02 07:12] LABS: Calcium 7.8 mg/dL (8.4-10.2); Magnesium 2.2 mg/dL (1.6-2.3); Phosphorus 3.1 mg/dL (2.5-4.5); Potassium 4.3 mmol/L (3.5-5.1)
[2022-09-02] MEDS: MIDAZOLAM HCL 50 MG in SODIUM CHLORIDE 0.9% 40 ML IV SCH ×3 (07:53→16:48)
[2022-09-02] MEDS: ALBUTEROL NEBULIZED 2.5 MG/3 ML INHALATION SCH ×4 (08:06→21:37)
[2022-09-02] MEDS: IPRATROPIUM 0.5 MG/2.5 ML NEBU INHALATION SCH ×4 (08:06→21:38)
[2022-09-02 08:19] LABS: Glucose,Whole Blood 131 mg/dL (70-110)
[2022-09-02] MEDS: PANTOPRAZOLE 40 MG/10 ML VIAL IVP SCH (08:42)
[2022-09-02] MEDS: AMIODARONE 200 MG TAB PO SCH ×2 (08:43→19:59)
[2022-09-02] MEDS: CEFTOLOZANE/TAZOBACTAM 0.75 GM in SODIUM CHLORIDE 0.9% 100 ML IV SCH ×2 (08:43→16:42)
[2022-09-02] MEDS: LACTULOSE 20 GM/30 ML CUP PO SCH ×4 (08:43→21:44)
[2022-09-02] MEDS: ANIDULAFUNGIN 100 MG in SODIUM CHLORIDE 0.9% 100 ML IVPB SCH (08:43)
[2022-09-02] MEDS: levETIRAcetam IV 1,000 MG in SALINE 1 100ML.BAG IVPB SCH ×2 (08:43→19:59)
[2022-09-02] MEDS: polyethylene glycoL 3350 17 GM POWD.PACK PO SCH ×2 (08:44→19:59)
[2022-09-02] MEDS: metOLazone 5 MG TAB PO SCH ×2 (08:44→19:59)
[2022-09-02] MEDS: FUROSEMIDE 100 MG in SODIUM CHLORIDE 0.9% 90 ML IV SCH ×2 (08:46→17:52)
[2022-09-02 08:49] LABS: Anisocytosis Moderate; HCT 27.4 % (34.0-46.0); HGB 8.4 gm/dL (11.4-16.0); Hypochromasia Moderate; MCH 26.6 pg (25.0-35.0); MCHC 30.7 g/dL (31.0-37.0); MCV 86.8 fL (80.0-100.0); Mean Platelet Volume 9.9; Platelet Count 168 k/uL (150-450); Poikilocytosis Moderate; RBC 3.16 m/uL (3.80-5.40); RDW 20.3 % (11.5-15.5)
--- NOTE | 2022-09-02 10:09 | P.PN ---
Progress Note - Text Progress Note Date: 09/02/22 Patient's tracheostomy site is clean. She'll continue supportive care.
[2022-09-02] MEDS ORDERED: METOCLOPRAMIDE 5 MG/ML 2 ML VIAL IVP PRN (10:21)
[2022-09-02] MEDS: LACOSAMIDE IV 150 MG in SODIUM CHLORIDE 0.9% 50 ML IVPB SCH ×2 (10:52→21:45)
[2022-09-02] MEDS: VASOPRESSIN 60 UNIT in SODIUM CHLORIDE 0.9% 150 ML IV SCH (10:54)
--- NOTE | 2022-09-02 12:38 | P.PN ---
Subjective Progress Note Date: 09/02/22 Principal diagnosis: Respiratory failure. Reevaluated today on 08/25/2022, patient remains in the ICU, intubated and mechanically ventilated, he is on assist control rate of 28th of volume 400 FiO2 50% PEEP of 5 ABG showed a pO2 of 91 pCO2 42 pH of 7.28 patient is scheduled to undergo tracheostomy and PEG tube placement today, hence no changes were made in her present ventilator settings. Patient is still maximized on pressors including norepinephrine at 0.5 mcg/kg/m vasopressin at 0.04 units per minute she is also on amiodarone 1 mg/m TPN at 50 mL/h. Sodium bicarb 3 A in D5W at 75 mL per hour she is also on Versed 6 mg per hour. Chest x-ray shows worsening in her bilateral pneumonia. WBC count is getting worse today 21.7 hemoglobin is 7.3, basic metabolic profile showed slightly low potassium of 3.0, BUN is 79 creatinine 1.87, basically unchanged in the last couple of days. Serum albumin is 1.7. Ionized calcium is 5.2, patient received calcium earlier today Reevaluated today on 08/26/2022, patient remains in the ICU, intubated mechanically ventilated, she is now on assist control rate of 30 tidal volume 400 FiO2 45% PEEP is at 10. Try to go down on the feet, however the patient desaturated and I kept her on a PEEP of 10. ABG today showed a pO2 of 84 pCO2 47 pH of 7.26. Patient remains on multiple drips, she had uneventful tracheostomy placed on 08/25 yesterday. However she did not have a PEG tube, continues to have a nasogastric tube in place. She is now on norepinephrine at 0.47 vasopressin at 0.04 amiodarone at 1 mg/m, bicarb at 75 mL/h Versed at 7 mg per hour today I added Solu-Medrol 40 mg IV push every 8 hours. Mostly because on physical examination she has significant rhonchi and wheezes chest x-ray continues to show bilateral infiltrates. Not much of a change. Overall clinical status about the same and unchanged. Patient remains quite swollen and edematous. Remains on Lasix 80 mg IV push daily. WBC count is rising 21.3. H emoglobin is 7.2. Basic metabolic profile is abnormal with low potassium and low sodium low bicarb elevated BUN of 76 creatinine 1.74. Ionized calcium is 5.6 ammonia level remains elevated at 171. Reevaluated today on 08/27/2022, patient remains in the ICU, intubated and mechanically ventilated sedated, patient is on multiple drips including norepinephrine at 0.3 mcg/kg/m vasopressin at 0.04, amiodarone, bicarbonate 75 ML per hour, and she is also on Versed 7 mg per hour. Patient is on assist control rate of 30 tidal volume 400 FiO2 45% PEEP of 10 ABG showed a pO2 of 100 pCO2 48 pH of 7.30. Patient has been receiving Versed, today I recommended that we stop the Versed and assess mental status if possible. Patient continues to have multiple medical issues, and I believe the patient is worsening clinically. Now she is developing ischemic changes in her fingers and in her toes, becoming more cyanotic. And that is mostly because of significant amount of pressors and the patient has been receiving. Today I recommended that we cut down on the presses since her blood pressure seems to be better and I recommended that we stop her Versed to assess mental status if possible. Hospice son is at bedside, updated the son in her condition, family is very well aware that her condition i s extremely poor and futile, nonetheless the is not ready to let go. I have strongly recommended comfort care measures, remains reluctant to do so. WBC count today is 21.3 hemoglobin 7.2. Basic metabolic profile is normal however her BUN is 75 creatinine 1.8 2, chest x-ray continues to show bilateral air space disease and possibly bilateral pleural effusions tracheostomy seems to be in proper position. Progress note dated 08/28/2022. 87-year-old female who was admitted back on August 08. She initially came in with urinary tract infection, possible bowel obstruction, and sepsis. The patient came to the intensive care unit one day later on the , and was intubated on August 10. For prolonged respiratory failure, and inability to wean, the patient underwent tracheostomy on August 25, and is apparently scheduled to have a PEG tube placed today. She remains on volume assist control, rate 30, tidal volume 400, FiO2 45%, and PEEP of 10. Arterial blood gases show pO2 of 95, pCO2 51, and pH is 7.25. The patient remains on TPN at 65 mL an hour, norepinephrine at 46 mcg/m, Versed 7 mg an hour, saline at KVO, insulin at 50 units an hour, and Lasix at 10 mg an hour. White count 22.4, hemoglobin 6.9, hematocrit 22.6, and platelet count 277,000. Sodium 1:30, potassium 3.6, chlorides 97, CO2 23, BUN 79, and creatinine 1.70. Review his blood cultures from the and August 23 show vancomycin-resistant enterococcus. There was no chest x-ray today. Progress note dated 08/29/2022. 87-year-old female who was admitted back on August 08. She initially came in with urinary tract infection, possible bowel obstruction, and sepsis. The patient came to the intensive care unit one day later on the , and was intubated on August 10. For prolonged respiratory failure, and inability to wean, the patient underwent tracheostomy on August 25. The patient remains on the volume assist control, tidal volume 400, FiO2 5%, and PEEP of 10. Arterial blood gases show pO2 105, pCO2 46, pH is 7.32. His blood gases are consistent with a mild respiratory acidosis. The patient remains on Lasix at 10 mg an hour, TPN at 65 mL an hour, Versed 9 mg an hour, norepinephrine at 21 mcg/m, vasopressin at 0.04 units per minute, and saline at 30 mL an hour. The patient received 1 unit packed red blood cells for hemoglobin of 6.5. Her antibiotics include Eraxis, Zyvox and Zerbaxa. White count is 22.6, hemoglobin 6.5, hematocrit 22.3, with a normal platelet count. Sodium 129, potassium 4.3, chlorides 96, CO2 24, BUN 80, and creatinine 1.62. Albumin is 1.6. Chest x-ray shows bilateral infiltrates, which may be on the basis of pneumonia versus CHF. Progress note dated 08/30/2022. 87-year-old female who was admitted on August 08. She initially was admitted with a diagnosis of urinary tract infection, sepsis, and possible bowel obstruction. The patient came to the intensive care unit one day later, and was intubated on August 10. Because of prolonged respiratory failure and inability to wean, the patient underwent tracheostomy on 08/25. Current ventilator settings include the volume assist control, rate 30, tidal volume 400, FiO2 45%, and PEEP of 10. Arterial blood gases show a PaO2 of 87, pCO2 44, and a pH is 7.31. The patient remains on TPN at 65 mL an hour, norepinephrine at 24 mcg/m, vasopressin 0.04 units per minute, Versed 9 mg an hour, Ativan at 8 mg an hour, and Lasix drip at 10 mg an hour. The patient is scheduled to have another EEG today. The patient is currently on Eraxis, Zyvox, and Zerbaxa. White count 20 .7, hemoglobin 8.1, hematocrit 26.3, and platelet count 221,000. Sodium 126, potassium 4, chlorides 93, CO2 21, BUN 81, and creatinine 1.62. The rest of the labs look okay. Chest x-ray shows diffuse bilateral infiltrates, and are largely unchanged. Progress note dated 08/31/2022. 87-year-old female who was admitted on August 08. She was initially admitted with a diagnosis of urinary tract infection, sepsis, and possible bowel obstruction. She came to the intensive care unit one day later, and was intubated on August 10. Because of prolonged respiratory failure and inability to wean, the patient underwent tracheostomy on August 25. Current ventilator settings include the volume assist control, rate 30, tidal volume 400, FiO2 45%, and PEEP of 10. Arterial blood gases showed pO2 101, pCO2 50, and pH of 7.28. The patient remains on TPN at 65 mL an hour, norepinephrine at 40 mcg/m, vasopressin at 0.04 units per minute, Lasix at 10 mg an hour, and tube feedings, at 10 mL an hour. She will be getting the tube feeds, via nasogastric tube. She remains on antibiotics, and antifungals. White count 21.3, hemoglobin 8.8, hematocrit 27.5, and platelet count 237,000. Sodium 127, potassium 4.4, chlorides 95, CO2 23, BUN 81, and creatinine 1.73. Ammonia level is 60. Chest x-ray shows mild vascular congestion. There are also bibasilar infiltrates. Progress note dated 09/01/2022. 87-year-old female again seen in room 265. The patient has been here in the hospital now for 24 days. She remains on the mechanical ventilator. She was initially admitted with a diagnosis of urinary tract infection, sepsis, and possible bowel obstruction. The patient remains on volume assist control, rate 30, tidal volume 400, FiO2 45%, and PEEP of 10. Blood gases show pO2 103, pCO2 44, and a pH is 7.34. She is on norepinephrine at 33 mcg/m, Lasix drip at 10 mg an hour, vasopressin at 0.04 units per minute and TPN at 65 mL an hour. In addition, the patient is receiving saline at 20 mL an hour. We attempted a left radial art line today, but were unable to cannulate the artery. Sodium 126, potassium 4.7, chlorides 96, CO2 21, BUN 86, creatinine 1.65. CBC has not yet been done. No chest x-ray today. Progress note dated 09/02/2022. 87-year-old female seen in room 265. She's now been in the hospital for 25 days. The patient was initially admitted with a diagnosis of bowel obstruction, sepsis, and urinary tract infection. The patient has been on the ventilator for a number of days, and has not been able to be weaned. She is status post tracheostomy. Currently, she is on volume assist control, with a rate of 30, tidal volume 400, FiO2 45%, and a PEEP of 10. Blood gases show pO2 of 112, PaCO2 50, and a pH of 7.33. She's getting norepinephrine at 30 mcg/m, va sopressin at 0.04 units per minute, a Lasix drip at 10 mg an hour, and TPN at 65 mL an hour. We will turn the FiO2 down from 45%, down to 40%. She's apparently scheduled for a computed tomography scan of the brain today. Also, we will attempt to give her tube feedings were NG tube. White count is 15, hemoglobin 8.4, hematocrit 27.4, and platelet count 168,000. Sodium 129, potassium 4.3, chlorides 94, CO2 27, BUN 88, and creatinine 1.55. Objective - Vital Signs Vital signs: Vital Signs Temp 97.4 F L 09/02/22 08:00 Pulse 100 09/02/22 12:10 Resp 30 H 09/02/22 11:00 BP 127/63 09/02/22 11:00 Pulse Ox 100 09/02/22 11:00 FiO2 40 09/02/22 11:34 Intake & Output 0309/02/22 09/02/22 18:59 06:59 18:59 Intake Total 2122.685 1992.6 577.86 Output Total 3350 9115 605 Balance -1227.315 -352.4 -27.14 Weight 144.6 kg 141.1 kg Intake: IV 981 766 72 0.9% @ KVO 180 180 60 Anidulafungin 100 mg In 100 Sodium Chloride 0.9% 100 ml @ 84 mls/hr IVPB DAILY [facility] Rx#:[id number] Ceftolozane/Tazobactam 0. 100 100 75 gm In Sodium Chloride 0.9% 100 ml @ 100 mls/hr IV Q8HR [facility] Rx#:[id number] Lacosamide IV 150 mg In 50 50 Sodium Chloride 0.9% 50 ml @ 100 mls/hr IVPB BID [facility] Rx#:[id number] Linezolid 600 mg In 300 300 Dextrose/Water 1 300ml. bag @ 150 mls/hr IVPB Q12H [facility] Rx#:[id number] Normal Saline: Pressure 36 36 12 Bag Phenytoin Sodium Inj 300 50 mg In Sodium Chloride 0.9 % 50 ml @ 80 mls/hr IVPB Q12H [facility] Rx#:[id number] Sodium Acetate 30 meq 65 Potassium Chloride 30 meq Magnesium Sulfate gm 0.5 gm Calcium Gluconate 2 gm In Amino Acids 5 %/ Dextrose 20 % 1,000 ml @ 65 mls/hr IV .BY DURATION [facility] Rx#:[id number] levETIRAcetam IV 1,000 mg 100 100 In Saline 1 100ml.bag @ 400 mls/hr IVPB Q12HR [facility] Rx#:[id number] Intake, IV Titration 300.685 341.6 245.86 Amount Furosemide 100 mg In 54.667 100 100 Sodium Chloride 0.9% 90 ml @ 10 MG/HR 10 mls/hr IV .Q10H [facility] Rx#: [id number] Norepinephrine 32 mg In 105.768 191.6 Sodium Chloride 0.9% 218 ml @ 0.5 MCG/KG/MIN 25. 547 mls/hr IV .Q9H48M [facility] Rx#:[id number] Phenytoin Sodium Inj 300 50 mg In Sodium Chloride 0.9 % 50 ml @ 80 mls/hr IVPB Q12H [facility] Rx#:[id number] Vasopressin 60 unit In 140.25 145.86 Sodium Chloride 0.9% 150 ml @ 0.04 UNITS/MIN 6.12 mls/hr IV .Q24H [facility] Rx#: [id number] TPN/PPN 715 780 260 TPN 715 780 260 Lipid 126 105 Fat Emulsion 20% 250 ml 126 105 In Empty Bag 1 bag @ 21 mls/hr IV TuFr [facility] Rx#: [id number] Output: Gastric Drainage 200 Urine 3150 2345 605 Other: Voiding Method Indwelling Catheter Indwelling Catheter Indwelling Catheter ABP, PAP, CO, CI - Last Documented Arterial Blood Pressure 130/57 - Exam No acute distress, off all sedation, and currently on the mechanical ventilator. HEENT examination is grossly unremarkable. Neck supple. Full range of motion. No adenopathy thyromegaly or neck vein distention. A midline tracheostomy tube is noted. Cardiovascular examination reveals regular rhythm rate. S1-S2 normal. No S3 or S4. No discernible murmur noted. Heart rate 100 bpm. Lungs reveal scattered bilateral rhonchi. Breath sounds equal. Saturations are 98 %. Abdomen obese, without bowel sounds. Extremities reveal bilateral lower extremity edema. There is diffuse anasarca as well. Skin is without rash or lesion. Neurologic examination is difficult to assess. - Labs CBC & Chem 7: 09/02/22 08:15 09/02/22 06:30 Labs: Abnormal Lab Results - Last 24 Hours (Table) 09/01/22 09/01/22 09/01/22 Range/Units 15:28 21:16 23:45 WBC (3.8-10.6) k/uL RBC (3.80-5.40) m/uL Hgb (11.4-16.0) gm/dL Hct (34.0-46.0) % MCHC (31.0-37.0) g/dL RDW (11.5-15.5) % ABG pH (7.35-7.45) ABG pCO2 (35-45) mmHg ABG pO2 (83-108) mmHg ABG HCO3 (21-25) mmol/L ABG Total CO2 (19-24) mmol/L Sodium (137-145) mmol/L Chloride (98-107) mmol/L BUN (7-17) mg/dL Creatinine (0.52-1.04) mg/dL Glucose (74-99) mg/dL POC Glucose (mg/dL) 161 H 177 H 178 H (70-110) mg/dL Calcium (8.4-10.2) mg/dL 09/02/22 09/02/22 09/02/22 Range/Units 03:55 06:29 06:30 WBC (3.8-10.6) k/uL RBC (3.80-5.40) m/uL Hgb (11.4-16.0) gm/dL Hct (34.0-46.0) % MCHC (31.0-37.0) g/dL RDW (11.5-15.5) % ABG pH (7.35-7.45) ABG pCO2 (35-45) mmHg ABG pO2 (83-108) mmHg ABG HCO3 (21-25) mmol/L ABG Total CO2 (19-24) mmol/L Sodium 129 L (137-145) mmol/L Chloride 94 L (98-107) mmol/L BUN 88 H (7-17) mg/dL Creatinine 1.55 H (0.52-1.04) mg/dL Glucose 126 H (74-99) mg/dL POC Glucose (mg/dL) 172 H 146 H (70-110) mg/dL Calcium 7.8 L (8.4-10.2) mg/dL 09/02/22 09/02/22 09/02/22 Range/Units 06:37 08:15 08:18 WBC 15.0 H (3.8-10.6) k/uL RBC 3.16 L (3.80-5.40) m/uL Hgb 8.4 L (11.4-16.0) gm/dL Hct 27.4 L (34.0-46.0) % MCHC 30.7 L (31.0-37.0) g/dL RDW 20.3 H (11.5-15.5) % ABG pH 7.33 L (7.35-7.45) ABG pCO2 50 H (35-45) mmHg ABG pO2 112 H (83-108) mmHg ABG HCO3 26 H (21-25) mmol/L ABG Total CO2 27 H (19-24) mmol/L Sodium (137-145) mmol/L Chloride (98-107) mmol/L BUN (7-17) mg/dL Creatinine (0.52-1.04) mg/dL Glucose (74-99) mg/dL POC Glucose (mg/dL) 131 H (70-110) mg/dL Calcium (8.4-10.2) mg/dL Microbiology - Last 24 Hours (Table) 08/29/22 13:29 Blood Culture - Preliminary Blood No Growth after 72 hours Assessment and Plan Assessment: Acute on chronic hypoxemic respiratory failure, status post intubation on August 10, and tracheostomy on August 25. Acute on chronic diastolic CHF. Abdominal sepsis/septic shock. Anion gap metabolic acidosis. Urinary tract infection secondary to Enterococcus faecalis and pseudomonas aeruginosa. Bacteremia secondary to vancomycin-resistant enterococci. Systemic candidiasis. Atrial fibrillation with RVR. Acute on chronic kidney disease. Recent history of coronavirus infection. History of aortic stenosis. Acute on chronic anemia. History of COPD. History of diastolic congestive heart failure. Morbid obesity. Plan: Plan dated 08/28/2022. The patient remains a DO NOT RESUSCITATE patient, but the patient family still wants everything done at this time. The patient will continue on GI and DVT prophylaxis. The patient continues on antibiotics as per infectious diseases. The patient remains on norepinephrine at 46 mcg/m. She also remains on Versed, because of ongoing seizure activity. The patient continues on insulin at 50 units an hour, and a Lasix drip, as well as TPN. The plan is to do a PEG tube today. Additional recommendations and suggestions are forthcoming. Labs, x- rays, and medications are reviewed. Patient is very critically ill, and overall prognosis remains guarded. Plan dated 08/29/2022. The patient remains a DO NOT RESUSCITATE patient. The patient did have a PEG tube placed yesterday. She remains on multiple drips including Lasix, Versed, norepinephrine, and vasopressin. She will receive 1 unit of packed red blood cells for hemoglobin 6.5. He remains on good antibiotics and antifungals. Blood gases show a very mild respiratory acidosis. She remains on 45% and 10 of PEEP. Prognosis is very guarded. We will continue to follow make recommendations along the way. Plan dated 08/30/2022. The patient remains a DO NOT RESUSCITATE patient. I had a long conversation with the yesterday. The patient remains on appropriate medications including antibiotics, and antifungals, TPN, norepinephrine, vasopressin, Versed, and Ativan. In addition, the patient remains on Lasix drip. The patient had an EEG yesterday, and will have another one today. Neurology is following the patient. Respiratory status is stable. We will continue to follow and make recommendations along the way. Overall prognosis is poor. Plan dated 08/31/2022. The patient is seen today and examined, and room 265. The patient is a DO NOT RESUSCITATE patient. She remains on antifungals and antibiotics. She remains on the mechanical ventilator. A PEG tube could not be placed because of body habitus. She will start tube feedings today to the NG tube. She remains on high doses of both norepinephrine and vasopressin. She also remains on a Lasix drip. Blood gases are adequate. Labs, x-rays, and medications are reviewed. I did speak to neurology about her prognosis, which is poor. Plan dated 09/01/2022. The patient remains on significant doses of both norepinephrine and vasopressin, for blood pressure support. We attempted a left radial art line, could not cannulate the artery today. Labs, x-rays, and medications are all reviewed. We are going to DC the corticosteroids, budesonide, formoterol, and Flomax. Additional recommendations and suggestions are forthcoming. We will continue to follow the patient make recommendations and suggestions along the way. The patient's overall prognosis is very poor and my opinion. I believe neurology feels exactly the same way. Plan dated 09/02/2022. The patient remains on significant doses of both norepinephrine and vasopressin for blood pressure support. The patient will go for a CAT scan of the brain today, if she is stable. We will attempt tube feedings, via the NG tube today as well. Labs, x-rays, and medications are reviewed. Overall prognosis remains very poor. The FiO2 on the ventilator is reduced from 45%, down to 40%. We will continue to follow the patient and make recommendations along the way. I did have a chance to speak to the daughter today. Time with Patient: Greater than 30
--- NOTE | 2022-09-02 13:02 | P.PN ---
Subjective Progress Note Date: 09/02/22 I continuing to follow-up with patient and per nurse continues to have no further clinical seizure overnight or today. Continues to be intubated on vent. No sedation since 08/30/2022. Daughter is at bedside and feels she is about the same. I was notified by nursing staff that repeat CT head has not been done since patient was not hemodynamically stable. She is on Vasopressin and norepinephrine. Objective - Vital Signs Vital signs: Vital Signs Temp 97.4 F L 09/02/22 08:00 Pulse 100 09/02/22 12:10 Resp 30 H 09/02/22 11:00 BP 127/63 09/02/22 11:00 Pulse Ox 100 09/02/22 11:00 FiO2 40 09/02/22 11:34 Intake & Output 09/01/22 09/02/22 09/02/22 18:59 06:59 18:59 Intake Total 2122.685 1992.6 577.86 Output Total 3350 2345 605 Balance -1227.315 -352.4 -27.14 Weight 144.6 kg 141.1 kg Intake: IV 981 766 72 0.9% @ KVO 180 180 60 Anidulafungin 100 mg In 100 Sodium Chloride 0.9% 100 ml @ 84 mls/hr IVPB DAILY [facility] Rx#:[id number] Ceftolozane/Tazobactam 0. 100 100 75 gm In Sodium Chloride 0.9% 100 ml @ 100 mls/hr IV Q8HR [facility] Rx#:[id number] Lacosamide IV 150 mg In 50 50 Sodium Chloride 0.9% 50 ml @ 100 mls/hr IVPB BID [facility] Rx#:[id number] Linezolid 600 mg In 300 300 Dextrose/Water 1 300ml. bag @ 150 mls/hr IVPB Q12H [facility] Rx#:[id number] Normal Saline: Pressure 36 36 12 Bag Phenytoin Sodium Inj 300 50 mg In Sodium Chloride 0.9 % 50 ml @ 80 mls/hr IVPB Q12H [facility] Rx#:[id number] Sodium Acetate 30 meq 65 Potassium Chloride 30 meq Magnesium Sulfate gm 0.5 gm Calcium Gluconate 2 gm In Amino Acids 5 %/ Dextrose 20 % 1,000 ml @ 65 mls/hr IV .BY DURATION [facility] Rx#:[id number] levETIRAcetam IV 1,000 mg 100 100 In Saline 1 100ml.bag @ 400 mls/hr IVPB Q12HR [facility] Rx#:[id number] Intake, IV Titration 300.685 341.6 245.86 Amount Furosemide 100 mg In 54.667 100 100 Sodium Chloride 0.9% 90 ml @ 10 MG/HR 10 mls/hr IV .Q10H [facility] Rx#: [id number] Norepinephrine 32 mg In 105.768 191.6 Sodium Chloride 0.9% 218 ml @ 0.5 MCG/KG/MIN 25. 547 mls/hr IV .Q9H48M [facility] Rx#:[id number] Phenytoin Sodium Inj 300 50 mg In Sodium Chloride 0.9 % 50 ml @ 80 mls/hr IVPB Q12H [facility] Rx#:[id number] Vasopressin 60 unit In 140.25 145.86 Sodium Chloride 0.9% 150 ml @ 0.04 UNITS/MIN 6.12 mls/hr IV .Q24H [facility] Rx#: [id number] TPN/PPN 715 780 260 TPN 715 780 260 Lipid 126 105 Fat Emulsion 20% 250 ml 126 105 In Empty Bag 1 bag @ 21 mls/hr IV TuFr [facility] Rx#: [id number] Output: Gastric Drainage 200 Urine 3150 2345 605 Other: Voiding Method Indwelling Catheter Indwelling Catheter Indwelling Catheter ABP, PAP, CO, CI - Last Documented Arterial Blood Pressure 130/57 - Exam GENERAL: The patient is lying in bed and does not appear in acute distress. LUNG:Trach on ventilator. NEUROLOGICAL: Not on sedation (IV Ativan and Versed has been stopped since 08/30/22 at 11ish AM). Higher mental function: The patient is comatose. Is GCS 3( E1, VT1, M1). Cranial nerves: I had to manually open her eyes. Primary gaze is midline. The pupils are round, equal, 3mm and reactive to light. +ve corneal reflex bilater ally. No facial weakness. Is breathing over the vent (AC set at 30 and is breathing at 31). Has weak gag reflex. Motor: The strength is limited but no withdrawal to painful stimuli. No spontanous movement. Sensation: Unable to assess light touch. - Labs CBC & Chem 7: 09/02/22 08:15 09/02/22 06:30 Labs: Abnormal Lab Results - Last 24 Hours (Table) 09/01/22 09/01/22 09/01/22 Range/Units 15:28 21:16 23:45 WBC (3.8-10.6) k/uL RBC (3.80-5.40) m/uL Hgb (11.4-16.0) gm/dL Hct (34.0-46.0) % MCHC (31.0-37.0) g/dL RDW (11.5-15.5) % ABG pH (7.35-7.45) ABG pCO2 (35-45) mmHg ABG pO2 (83-108) mmHg ABG HCO3 (21-25) mmol/L ABG Total CO2 (19-24) mmol/L Sodium (137-145) mmol/L Chloride (98-107) mmol/L BUN (7-17) mg/dL Creatinine (0.52-1.04) mg/dL Glucose (74-99) mg/dL POC Glucose (mg/dL) 161 H 177 H 178 H (70-110) mg/dL Calcium (8.4-10.2) mg/dL 09/02/22 09/02/22 09/02/22 Range/Units 03:55 06:29 06:30 WBC (3.8-10.6) k/uL RBC (3.80-5.40) m/uL Hgb (11.4-16.0) gm/dL Hct (34.0-46.0) % MCHC (31.0-37.0) g/dL RDW (11.5-15.5) % ABG pH (7.35-7.45) ABG pCO2 (35-45) mmHg ABG pO2 (83-108) mmHg ABG HCO3 (21-25) mmol/L ABG Total CO2 (19-24) mmol/L Sodium 129 L (137-145) mmol/L Chloride 94 L (98-107) mmol/L BUN 88 H (7-17) mg/dL Creatinine 1.55 H (0.52-1.04) mg/dL Glucose 126 H (74-99) mg/dL POC Glucose (mg/dL) 172 H 146 H (70-110) mg/dL Calcium 7.8 L (8.4-10.2) mg/dL 09/02/22 09/02/22 09/02/22 Range/Units 06:37 08:15 08:18 WBC 15.0 H (3.8-10.6) k/uL RBC 3.16 L (3.80-5.40) m/uL Hgb 8.4 L (11.4-16.0) gm/dL Hct 27.4 L (34.0-46.0) % MCHC 30.7 L (31.0-37.0) g/dL RDW 20.3 H (11.5-15.5) % ABG pH 7.33 L (7.35-7.45) ABG pCO2 50 H (35-45) mmHg ABG pO2 112 H (83-108) mmHg ABG HCO3 26 H (21-25) mmol/L ABG Total CO2 27 H (19-24) mmol/L Sodium (137-145) mmol/L Chloride (98-107) mmol/L BUN (7-17) mg/dL Creatinine (0.52-1.04) mg/dL Glucose (74-99) mg/dL POC Glucose (mg/dL) 131 H (70-110) mg/dL Calcium (8.4-10.2) mg/dL Microbiology - Last 24 Hours (Table) 08/29/22 13:29 Blood Culture - Preliminary Blood No Growth after 72 hours Assessment and Plan Assessment: * 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 On keppra, Vimpat and Dilantin. Also has tried IV versed and IV ativan without improvement. IV sedation has been off since 08/30/22. * Altered mental status multifactorial as mentioned below. Patient seizure and it seems partial status, septic encephalopathy, Iversed and Ativan--off since 08/30/22 close to 11ish AM. Also has some component of metabolic encephalopathy and hepatic encephalopathy. * Probable perforated viscus with pneumoperitoneum. * Septicemia, with leukocytosis and blood culture persistently positive with enterococcus faecium. Blood cultures positive as of 08/23/2022--wbc is trending down and no further fever * Hepatic encephalopathy with initial elevated ammonia and trending down. * Septic shock requiring high-dose pressors and seems has urinary tract infection with urine culture positive for Enterococcus faecalis and Pseudomonas aeruginosa as well as systemic candidiasis * Atrial fibrillation on eliquis (which has hx of afib) , currently on hold. * Acute on chronic hypoxemic respiratory failure secondary to diastolic congestive heart failure requiring intubation mechanical ventilation * Acute on chronic kidney disease--trending down * History of TIAs/stroke * History of coronary artery disease with stent * Hypertension * Hyperlipidemia * Diabetes mellitus * Anemia * Hypocalcemia--resolved Plan: * Pending repeat CT head. Was notified by nurse that she is not hemodynamically stable and that is reason why not obtained but if stable today to go for repeat CT head. * Clinically it appears partial status has resolved. No focal twitches noticed at this time. * Patient has multiple 2.5 hour EEG's and routine EEG's. Most recent 2.5 hour EEG on 08/30/22 reported as: Markedly abnormal 2.5 hour video EEG. This EEG demonstrates the patient to be in partial status epilepticus originating from the left posterior quadrant. Also burst suppression pattern was seen. The burst suppression pattern indicating severe diffuse cerebral dysfunction which may be in part due to medication effect. Based on maximum amplitude of the ictal discharges these findings indicate the presence of epileptiform focus more than one up of home focus cannot be excluded involving the left parietal region. The left parietal occipital region, greater involvement of the left hemisphere for an additional independent epileptiform focus involving the right posterior quadrant is not necessarily excluded. * Most recent routine EEG on 09/01/22: She continued to have burst suppresion with discharges suggestive of continues status epilepticus. The suppression is due status epilepticus vs anoxia. * Patient already on high dose Vimpat 150 mg twice a day, Keppra 1000 mg twice a day (both of them adjusted for current renal functions). Also on Dilantin 300mg every 12 hours. On Versed 9 mg per hour and been on Versed since 08/25/22 and IV Ativan 8mg/hr close to 24 hours without improvement. IV sedation has been off since 08/30/22 around 11ish AM. * Cannot give Depakote because of hyperammonemia. Her Keppra level on 08/26/22: 68.9 (normal is 3-60). * Continue Ativan 1-2 mg every 4 hours when necessary seizure. * Repeat CT head 08/24/2022, which did not reveal any acute intracranial process. However there is possible bilateral mastoiditis and middle ear infections spread. Correlate clinically. Patchy paranasal sinus disease. I personally reviewed CT head, and there is evidence of air-fluid level in the left maxillary sinus. Agree with evidence of possible bilateral mastoiditis and fluid in the middle ear. I discussed with PCP about possibility of lumbar puncture. ID is also on board. Patient currently on Eraxis, Zerbaxa, daptomycin. Per ID, patient is already covered well for meningitis. * Patient's initial Ammonia was 214. Latest was 50. Patient on lactulose. * Surgery on board. * Patient is on pressors * Hypocalcemia--improving, Recommend appropriate treatment as per IM and critical care. * We'll defer the rest of medical management to primary and ICU team * The patient condition is very critical. Prognosis appears very poor at this time. * I had length discussion with the patient's and daughter who are at bedside. I also discussed with primary team. Also discussed with nurse. From neurological perspective patient has super-refractory status epileptic even though was on IV Versed since 08/25/22 till 08/30/22 and IV Ativan from 08/29/22 till 08/30/22 for about 24 hours not including 3 drugs (Keppra, Dilantin and Vimpat) without any benefit. Patient and daughter does want IV sedation running and to resume if clinically seizing. Patient prognosis is very poor. She has brainstem reflex (is not brain ) but I feel her quality of life is very poor. The family would like to continue with care and are aware. The plan is discussed with daughter who is at bedside and ICU nurse. Will continue to follow. Time with Patient: Less than 30
[2022-09-02] MEDS: PHENYTOIN SODIUM INJ 300 MG in SODIUM CHLORIDE 0.9% 50 ML IVPB SCH (13:19)
[2022-09-02 13:20] LABS: Glucose,Whole Blood 116 mg/dL (70-110)
--- NOTE | 2022-09-02 13:22 | P.PN ---
Subjective This is a 87-year-old morbidly, obese, female, well known to me. She has multiple medical problems including a chronic renal failure, chronic systolic congestive heart failure. I last seen her on August 05, 2022 at [facility] [place] She was doing fairly well at that time. She was there for rehabilitation. This was her third [facility] visit in the past Several months.Her only complaint with some constipation. She not stool since August 03. She has been hospitalized in the past year nine times including this current visit.She was discharged from [facility] on August 06, 2022. On August 08, 2022 she presented the emergency room via EMS. Her indicates that she went to the bathroom, and, he had found her slumped over in her wheelchair, blue in the face and not breathing well. He had tried to feed her and given her some insulin. SheHer only complaint with some constipation. After patients admission, just after midnight and 18 was called on her and she is going to be attending hypotensive. Choose placement of any mask and BiPAP. Eventually she required intubation. And her about August 11. She's currently in abated and sedated.How to raise tachycardic blood pressure is stable with pressers.She is on aAnidulafungin For positive sputum and blood cultures of yeast. She remains on sodium chloride and potassium chloride IV and is now on tube feeds at 10 ml/hr. Labs for today show a leukocytosis at 16.2 with a left shift 13.9 neutrophils hemoglobin is 7.7. ABGs from this morning show page 7.32 PCO2 of 39 PO and HCO3 a 20.Chemistry is show the normal electrolytes decrease carbon dioxide and 19 GFR is 26. Calcium 6.4. She is receiving a amino acids and D5 through the IV. She has Dulcolax per rectum ordered. She has sheathing calcium gluconate. She remains Zerbaxa for antibiotic coverage.She is receiving Lovenox for anticoagulation and DVT prophylaxis, Levemir insulin along with scale, Levophed for blood pressure control, potassium chloride for hypokalemia. She's being followed by critical care, Nephrology,surgery, Infectious disease and cardiology August 16 2022: She remains intubated in the intensive care unit. Sedation has been discontinued. She remains on pressors of Levophed. The dose of this is been decreased. She did not tolerate tube feeds. Heart rate remains elevated. She is in atrial fibrillation. She is on potassium replacement protocol. Calcium gluconate, amiodarone drip, need to left fungated antifungal medication, ceftolazone/tazobactam for antibiotic coverage for suspected UTI and sepsis, Reglan for her constipation, insulin for her diabetes, Elequis for anticoagulation. Laboratory studies show a leukocytosis at 20.2 with hemoglobin of 70 absolute neutrophils 17.5. ABGs show pH 7.36 PCO2 39 PO2 107. Chemistries slightly altered, GFR is improved, CRP and pro calcitonin elevated. Repeat blood cultures have been negative. She remains on MiraLAX, lactulose and Reglan per critical care for the constipation issues. Calcitonin is improved. Glucose remains well controlled. Critical care planning gradually reducing her pressors as needed. Etiologies following for her A. fib with RVR. He continues to have volvulus. 08/17/2022: Patient remains intubated in the intensive care unit. He remains on norepinephrine and vasopressin for hypotension. Sedation used propofol but will be discontinued soon for a trial ventilator on standby. I discussed her case personally with the french professor. She remains on Levemir insulin 10 units and NovoLog scale every 6 hours. Staff reports increased sugars recently. She continues on naproxen than for anticoagulation, amiodarone for atrial fibrillation with RVR, budesonide for her COPD, Eraxis for candidal infection and Zybrexa for anti-biotic coverage for UTI. Her main some potassium protocol. She is on lactulose and Reglan to help with her obstipation. She is receiving TPN for nutrition. I remains tachycardic, rest her rate somewhat elevated. Blood pressure remained stable. WB Nayla is slightly improved from yesterday, hemoglobin is slightly down from yesterday. Blood gases chemistries reviewed. She remains hypokalemic. Kidney function continues to improve very slowly. Glucose was 260 this morning. Calcium and protein albumin remained low. Her 13 blood cultures remain negative. Her condition is critical care cardiology reviewed. Chest x-ray shows no nipple can't change. 08/18 2022: Patient remains intubated in the intensive care unit. Sedation has been off, but there's been no significant wakefulness noted. Vital signs show she remains tachycardic in the 130s. Respiratory rate is 30 and mechanically ventilated, blood pressure remains low normal with pressers of vasopressin and levo fed. FiO2 is 40 Labs show to be discussed 16 5 hemoglobin 7 hematocrit 23.9 platelets are 301. Arterial line gases show pH 7.35 PCO2 40 and PO2 of 89. Chemistry shows sodium 148 potassium 3.0 chloride 119 CO2 23 BUN 58 crit and 1.26. Critical care, nephrology notes were reviewed. 08/19/2022: Patient remains in abated intensive care unit. She's been off sedation 48 hours but is not responding to family and only has reflexes noted. Remains mechanically ventilated. Staff reports large stools now and the need for fecal management system. He is now febrile at 101.4 axillary. Heart rate remains tachycardic in atrial fibrillation. Pulse oximetry is 92% on 40% FiO2. Labs today showed a B scan in 19 9, hemoglobin is 6.9, platelets 280. Blood gases are reviewed. Minimally hyponatremic and hypokalemic. BUN is 56, creatinine 1.1 on, GFR now 46. The kidney function continues to improve. They have packed red blood cells been ordered and pending. Consult recommendations were reviewed. She remains on the plan per critical care. 08/20/2022: Patient remains intubated in the intensive care unit. She remains off sedation. She is still unresponsive. She continues to be mechanically v entilated. She has been febrile for the past 24 hours with MAXIMUM TEMPERATURE of 103F. She reports increased use of pressors to control blood pressure. WBC count is increased in 26 6. Hemoglobin is 8.7. She received 1 unit of packed red blood cells yesterday. Blood gases are slightly worsened as is her kidney function today. Neurology was consulted and see the patient. Notes reviewed from critical care and surgery and cardiology. Patient remains on amiodarone, Elequis for atrial fibrillation. She remains on Z-Kimo, Eraxis now vancomycin for sepsis. 2. Has been stopped. She remains on NovoLog scale and detemir insulin area and her son and were at bedside. Case was discussed with him as well. PER MANAGER PROFESSION[employer]ELOPMENT VERONA BARBA and DR PARIKH below 08/21/2022 remains vent dependent, FiO2 50%/+5 of PEEP. Maintained on high doses of levophed, vasopressin. Amiodarone and bicarb drips continue. Receiving IV albumin to be followed by Lasix. Worsening renal function. Staff reports no urine output 24 hours. Bicarb 16, BUN 76, creatinine 1.73. Repeat CT of abdomen and pelvis completed yesterday, reporting moderate volume pneumoperitoneum, suspected perforation of distal colonic bowel, extensive distal bowel pneumatosis. Surgery discussed findings with family, high risk for surgical intervention. Family decided against surgical intervention,but to continue with nonsurgical care. T-max 100.6. Maintained on Zerbaxa, Eraxis,daptomycin .Seizure-like activity reported yesterday afternoon, placed on Keppra, reoccurred in the early childhood education worker hours 2. Brain CT reported no acute intracranial process .EEG completed, results pending. 08/22/2022 vent dependent, 40% FiO2, +5 of PEEP. Staff reports patient desats quickly with turning. Chest x-ray reporting bibasilar atelectasis, consolidation, minimally increased, possible tiny right basilar pleural effusion. Continues on high doses of pressors, digits dusky. Maintained on bicarb drip. Telemetry atrial fibrillation, fast ventricular rate on amiodarone drip. Remains on antibiotics as per infectious disease.BUN 83, creatinine 1.79. T-max 102, WBC decreased, 16.5 08/23/2022 FiO2 50%/+5 of PEEP. Chest x-ray reported no significant change .Continues on pressor support. Maintained on amiodarone drip, heart rates c urrently in the 1 teens to 120s. Continues on daptomycin, Zerbexa and Eraxis.T- max 100.9, WBC 15.3. BUN 83, creatinine 2.13. WBC decreased to 15.3. Receiving IV albumin, Albumin currently 1.6. Ionized calcium 3.4, receiving supplementation. 08/24/2022 continues in A. fib, heart rates 110 to 130s on amiodarone drip. Seizure activity yesterday reported with facial twitching lasting approximately half an hour EEG performed-reported abnormal 2-1/2 hour EEG suggesting epileptiform focus involving midline occipital parietal region. Vimpat and Keppra doses increased. Continue to have seizure activity today, right-sided face twitching, trembling of arm reported, repeat EEG in progress. Versed drip initiated. Brain Ct pending. Maximized on both norepi and vasopressin. Digits dusky, declining comfort care at this time. Continues on bicarb drip. Remains vent dependent on FiO2 50%/+5 of PEEP. Now trach and PEG are being considered. 08/25/2022 maximized on pressors, levophed and vasopressin. Mechanical ventilator-dependent, FiO2 50%/+5 of PEEP. Chest x-ray reporting worsening bibasilar consolidation ,bilateral pneumonia. Family meeting via phone this morning with Dr. Hartman PCP, regarding poor prognosis, futile condition. Scheduled for tracheostomy and PEG-consent pending. Continues on amiodarone, bicarb drips. TPN. Continues to have seizure activity, on Versed drip, Dilantin added to med regimen. Afebrile, worsening WBC, 21.7, potassium 3, receiving supplementation. BUN 79, creatinine 1.87. Ionized calcium 3.4, supplemented. 08/28/2022 Remains vent dependent, FiO2 45%/+10 of PEEP status post tracheostomy 08/25. Nebulized bronchodilators, IV steroids. Receiving TPN/lipids. Requiring insulin drip for hyperglycemia, blood sugars currently ranging 160s to 170s.Ongoing seizures, continues on Versed drip, Dilantin, Keppra, Vimpat. EEG repeated yesterday, reported severely abnormal, suppression worsening-seen with severe anoxic or toxic metabolic encephalopathy, nonconvulsive generalized status epilepticus cannot be ruled out. Maintained on vasopressin, Levophed and Lasix drips. Antibiotics as per infectious disease. Afebrile, WBC 22.4. 08/29/2022 remains vent dependent, FiO2 45%/+10 of PEEP. Chest x-ray reporting bilateral infiltrates and pleural effusion, pneumonia versus CHF. PEG tube unable to be placed, please refer to the surgeon's note.Maintained on vasopressin, Levophed Lasix, Versed and Ativan drips. Repeat EEG pending. Co ntinues on antibiotics of Eraxis, Zyvox and Zerbaxa. Afebrile, WBC 22.6. Hemoglobin 6.5, receiving one unit of packed RBCs. Platelets 255. 08/30/2022 remains vent dependent, FiO2 45%/+10 of PEEP. Chest x-ray reporting stable bilateral infiltrates and pleural effusion. Continues on TPN, Lasix drip, norepinephrine, vasopressin. Maintained on Eraxis, Zyvox and Zerbaxa. Afebrile, WBC 20.7. Ammonia 50.EEG yesterday -refer to neurology report.Versed and Ativan drips turned off, 2 hour EEG recently started. Received one unit of packed RBCs yesterday with current hemoglobin 8.1, platelets 221. Sodium decreased to 126. Bicarb 21, BUN 81, creatinine 1.62. Albumin 1.6. Nephrology discussing renal replacement therapy secondary to fluid volume overload if family continues with aggressive therapy. 08/31/22 continues on vasopressor support, antifungal/antibiotics, oral antiarrhythmics, TPN, IV steroids, nebulized bronchodilators, IV diuretics, seizure management including Versed and Ativan drips,lactulose, mechanical ventilation with FiO2 45% status post 10 of PEEP. Chest x-ray reporting potentially developing mild pulmonary vascular congestion, ongoing right greater than left bibasilar consolidation/atelectasis and small effusions. Maintained on Lasix drip, severe volume overload. Nephrology discussing potential SLED as requesting to continue with current aggressive treatment at this time. 09/01/2022 Tube feeds stopped as patient developed high residuals during the night, maintained on TPN. No clinical seizure activity reported. Neurology workup continues, EEG recently repeated, results pending. Remains vent dependent, FiO2 40%/+10 of PEEP, pressor dependent and on IV Lasix. BUN 86, creatinine 1.65. Continues on antibiotics/antifungal. Afebrile. Family undecided regarding SLED/renal replacement treatment option discussed as per nephrology. per DR Dobbs 09/02/2022: Patient remains with trach tube in place. There were never able to get a PEG tube. She remains off sedation since August 30. There's been no evidence of significant brain activity. EEG showed ongoing epileptiform activity. There is corneal reflexes per nursing. Her digits all remains cyanotic. Vent settings remain the same FiO2 40%, PEEP of 10. Heart rate ranges 90-100, respiratory rate is mechanically controlled, blood pressure stable this time. She continues on Zerbaxa, Eraxis, and Zyvox for antibiotic coverage. He remains on IV Lasix drip for significant edema. He continues on TPN and she was unable to tolerate NG tube feeds, she remains on detemir insulin 15 units daily along with insulin scale and she continues on Dilantin IV piggyback. She is a fecal management system and Hylton catheter in place. Critical care neurology and general surgery notes reviewed today. She has multiple ongoing medical problems and daily Coumadin anoxic encephalopathy probable viscus with pneumoperitoneum acute on chronic kidney disease, chronic hypoxic breast heart failure acute on chronic diastolic heart failure diabetes. The patient has been intubated since 08/10/2022 and has a trach since 08/25/2022. Objective - Vital Signs Vital signs: Vital Signs Temp 97.4 F L 09/02/22 08:00 Pulse 100 09/02/22 12:10 Resp 30 H 09/02/22 11:00 BP 127/63 09/02/22 11:00 Pulse Ox 100 09/02/22 11:00 FiO2 40 09/02/22 11:34 Intake & Output 09/01/22 09/02/22 09/02/22 18:59 06:59 18:59 Intake Total 2122.685 1992.6 577.86 Output Total 3350 2345 605 Balance -1227.315 -352.4 -27.14 Weight 144.6 kg 141.1 kg Intake: IV 981 766 72 0.9% @ KVO 180 180 60 Anidulafungin 100 mg In 100 Sodium Chloride 0.9% 100 ml @ 84 mls/hr IVPB DAILY [facility] Rx#:[id number] Ceftolozane/Tazobactam 0. 100 100 75 gm In Sodium Chloride 0.9% 100 ml @ 100 mls/hr IV Q8HR [facility] Rx#:[id number] Lacosamide IV 150 mg In 50 50 Sodium Chloride 0.9% 50 ml @ 100 mls/hr IVPB BID [facility] Rx#:[id number] Linezolid 600 mg In 300 300 Dextrose/Water 1 300ml. bag @ 150 mls/hr IVPB Q12H [facility] Rx#:[id number] Normal Saline: Pressure 36 36 12 Bag Phenytoin Sodium Inj 300 50 mg In Sodium Chloride 0.9 % 50 ml @ 80 mls/hr IVPB Q12H [facility] Rx#:[id number] Sodium Acetate 30 meq 65 Potassium Chloride 30 meq Magnesium Sulfate gm 0.5 gm Calcium Gluconate 2 gm In Amino Acids 5 %/ Dextrose 20 % 1,000 ml @ 65 mls/hr IV .BY DURATION [facility] Rx#:[id number] levETIRAcetam IV 1,000 mg 100 100 In Saline 1 100ml.bag @ 400 mls/hr IVPB Q12HR [facility] Rx#:[id number] Intake, IV Titration 300.685 341.6 245.86 Amount Furosemide 100 mg In 54.667 100 100 Sodium Chloride 0.9% 90 ml @ 10 MG/HR 10 mls/hr IV .Q10H [facility] Rx#: [id number] Norepinephrine 32 mg In 105.768 191.6 Sodium Chloride 0.9% 218 ml @ 0.5 MCG/KG/MIN 25. 547 mls/hr IV .Q9H48M [facility] Rx#:[id number] Phenytoin Sodium Inj 300 50 mg In Sodium Chloride 0.9 % 50 ml @ 80 mls/hr IVPB Q12H [facility] Rx#:[id number] Vasopressin 60 unit In 140.25 145.86 Sodium Chloride 0.9% 150 ml @ 0.04 UNITS/MIN 6.12 mls/hr IV .Q24H [facility] Rx#: [id number] TPN/PPN 715 780 260 TPN 715 780 260 Lipid 126 105 Fat Emulsion 20% 250 ml 126 105 In Empty Bag 1 bag @ 21 mls/hr IV TuFr [facility] Rx#: [id number] Output: Gastric Drainage 200 Urine 3150 2345 605 Other: Voiding Method Indwelling Catheter Indwelling Catheter Indwelling Catheter ABP, PAP, CO, CI - Last Documented Arterial Blood Pressure 130/57 - Exam General: Patient is intubated in ICU, patient is not arousable. No sedation currently running Neck: [No adenopathy.] Cardiac: [Heart regularly irregular, tachycardic. S1/S2 were equal, there is a 1/6 systolic murmur at the right, and left sternal border Lungs: Diminished breath sounds bilaterally scattered rhonchi noted mechanically ventilated Abdomen: Somewhat distended due to her fecal retention. No organomegaly. Bowel sounds presnt and hypoactive in all 4 quadrants. This patient is morbidly obese, mild distention Extremes: Bilateral lower extremity and upper extremity edema is quite significant.. Offloading waffle boots are in place. There is significant cyanosis to the tips of all digits. Skin: Multiple small wounds have bordered foam dressings in place. Neurologic: Patient is on a ventilatory support, has reflexes as indicated by the nursing staff. No response to stimuli including sternal rub Lymphatic: [No adenopathy.] - Labs CBC & Chem 7: 09/02/22 08:15 09/02/22 06:30 Labs: Abnormal Lab Results - Last 24 Hours (Table) 09/01/22 09/01/22 09/01/22 Range/Units 15:28 21:16 23:45 WBC (3.8-10.6) k/uL RBC (3.80-5.40) m/uL Hgb (11.4-16.0) gm/dL Hct (34.0-46.0) % MCHC (31.0-37.0) g/dL RDW (11.5-15.5) % ABG pH (7.35-7.45) ABG pCO2 (35-45) mmHg ABG pO2 (83-108) mmHg ABG HCO3 (21-25) mmol/L ABG Total CO2 (19-24) mmol/L Sodium (137-145) mmol/L Chloride (98-107) mmol/L BUN (7-17) mg/dL Creatinine (0.52-1.04) mg/dL Glucose (74-99) mg/dL POC Glucose (mg/dL) 161 H 177 H 178 H (70-110) mg/dL Calcium (8.4-10.2) mg/dL 09/02/22 09/02/22 09/02/22 Range/Units 03:55 06:29 06:30 WBC (3.8-10.6) k/uL RBC (3.80-5.40) m/uL Hgb (11.4-16.0) gm/dL Hct (34.0-46.0) % MCHC (31.0-37.0) g/dL RDW (11.5-15.5) % ABG pH (7.35-7.45) ABG pCO2 (35-45) mmHg ABG pO2 (83-108) mmHg ABG HCO3 (21-25) mmol/L ABG Total CO2 (19-24) mmol/L Sodium 129 L (137-145) mmol/L Chloride 94 L (98-107) mmol/L BUN 88 H (7-17) mg/dL Creatinine 1.55 H (0.52-1.04) mg/dL Glucose 126 H (74-99) mg/dL POC Glucose (mg/dL) 172 H 146 H (70-110) mg/dL Calcium 7.8 L (8.4-10.2) mg/dL 09/02/22 09/02/22 09/02/22 Range/Units 06:37 08:15 08:18 WBC 15.0 H (3.8-10.6) k/uL RBC 3.16 L (3.80-5.40) m/uL Hgb 8.4 L (11.4-16.0) gm/dL Hct 27.4 L (34.0-46.0) % MCHC 30.7 L (31.0-37.0) g/dL RDW 20.3 H (11.5-15.5) % ABG pH 7.33 L (7.35-7.45) ABG pCO2 50 H (35-45) mmHg ABG pO2 112 H (83-108) mmHg ABG HCO3 26 H (21-25) mmol/L ABG Total CO2 27 H (19-24) mmol/L Sodium (137-145) mmol/L Chloride (98-107) mmol/L BUN (7-17) mg/dL Creatinine (0.52-1.04) mg/dL Glucose (74-99) mg/dL POC Glucose (mg/dL) 131 H (70-110) mg/dL Calcium (8.4-10.2) mg/dL Microbiology - Last 24 Hours (Table) 08/29/22 13:29 Blood Culture - Preliminary Blood No Growth after 72 hours Assessment and Plan (1) Encephalopathy acute Current Visit: Yes Status: Acute Code(s): G93.40 - ENCEPHALOPATHY, UNSPECIFIED SNOMED Code(s): 30788190 (2) Sepsis Current Visit: Yes Status: Acute Code(s): A41.9 - SEPSIS, UNSPECIFIED ORGANISM SNOMED Code(s): 22687930 (3) Acute on chronic diastolic (congestive) heart failure Current Visit: No Status: Acute Code(s): I50.33 - ACUTE ON CHRONIC DIASTOLIC (CONGESTIVE) HEART FAILURE SNOMED Code(s): 354635965 (4) Hypokalemia Current Visit: Yes Status: Acute Code(s): E87.6 - HYPOKALEMIA SNOMED Code(s): 71218334 (5) Hypocalcemia Current Visit: Yes Status: Acute Code(s): E83.51 - HYPOCALCEMIA SNOMED Code(s): 4176786 (6) Acute exacerbation of chronic obstructive pulmonary disease Current Visit: Yes Status: Acute Code(s): J44.1 - CHRONIC OBSTRUCTIVE PULMONARY DISEASE W (ACUTE) EXACERBATION SNOMED Code(s): 824371896 (7) Pneumonia Current Visit: Yes Status: Acute Code(s): J18.9 - PNEUMONIA, UNSPECIFIED ORGANISM SNOMED Code(s): 555296414 (8) Acute on chronic renal failure Current Visit: No Status: Acute Code(s): N17.9 - ACUTE KIDNEY FAILURE, UNSPECIFIED; N18.9 - CHRONIC KIDNEY DISEASE, UNSPECIFIED SNOMED Code(s): 575833901 (9) Altered mental status Current Visit: No Status: Acute Code(s): R41.82 - ALTERED MENTAL STATUS, UNSPECIFIED SNOMED Code(s): 820625047 (10) CAD (coronary atherosclerotic disease) Current Visit: No Status: Acute Code(s): I25.10 - ATHSCL HEART DISEASE OF [place] CORONARY ARTERY W/O ANG PCTRS SNOMED Code(s): 267819422 (11) Hypertension Current Visit: No Status: Acute Code(s): I10 - ESSENTIAL (PRIMARY) HYPERTENSION SNOMED Code(s): 48791896 (12) Hypoxia Current Visit: No Status: Acute Code(s): R09.02 - HYPOXEMIA SNOMED Co de(s): 125796053 (13) Leukocytosis Current Visit: No Status: Acute Code(s): D72.829 - ELEVATED WHITE BLOOD CELL COUNT, UNSPECIFIED SNOMED Code(s): 814288785 (14) shelter prescription opiate use Current Visit: No Status: Acute Code(s): Z79.891 - NURSING HOME (CURRENT) USE OF OPIATE ANALGESIC SNOMED Code(s): 715418168 (15) Type 2 diabetes mellitus without complications Current Visit: No Status: Acute Code(s): E11.9 - TYPE 2 DIABETES MELLITUS WITHOUT COMPLICATIONS SNOMED Code(s): 405342765 (16) UTI (urinary tract infection) Current Visit: No Status: Acute Code(s): N39.0 - URINARY TRACT INFECTION, SITE NOT SPECIFIED SNOMED Code(s): 87039755 (17) Urinary retention Current Visit: No Status: Acute Code(s): R33.9 - RETENTION OF URINE, UNSPECIFIED SNOMED Code(s): 715318623 (18) Status post tracheostomy Current Visit: Yes Status: Acute Code(s): Z93.0 - TRACHEOSTOMY STATUS SNOMED Code(s): 257678814 (19) Septic shock Current Visit: No Status: Acute Code(s): A41.9 - SEPSIS, UNSPECIFIED ORGANISM; R65.21 - SEVERE SEPSIS WITH SEPTIC SHOCK SNOMED Code(s): 45598290 (20) Severe sepsis with acute organ dysfunction due to Gram negative bacteria Current Visit: No Status: Acute Code(s): A41.50 - GRAM-NEGATIVE SEPSIS, UNSPECIFIED; R65.20 - SEVERE SEPSIS WITHOUT SEPTIC SHOCK SNOMED Code(s): 130231362 Plan: I will standby for further recommendations from neurology, critical care, infectious disease, Nephrology, general surgery, cardiology, repeat labs in a.m., I spent 10 minutes discussing her care with her daughter , EEG and CT the brain are pending at this time. She remains gravely ill. Family medicine well reevaluate next 24 hours.
[2022-09-02] MEDS: 1: MVI, ADULT NO.4 WITH VIT K 10 ML, TRACE (CONC-1ML/DOSE) 1 ML, SODIUM ACETATE 50 MEQ, IV SCH ×8 (13:37)
--- NOTE | 2022-09-02 14:38 | P.PN ---
Subjective Progress Note Date: 09/02/22 Follow-up for acute kidney injury. Urine output of 5 L in the last 24 hours. Objective - Vital Signs Vital signs: Vital Signs Temp 97.6 F 09/02/22 12:00 Pulse 96 09/02/22 14:00 Resp 30 H 09/02/22 14:00 BP 108/65 09/02/22 14:00 Pulse Ox 99 09/02/22 14:00 FiO2 40 09/02/22 12:00 Intake & Output 09/01/22 09/02/22 09/02/22 18:59 06:59 18:59 Intake Total 2122.685 1992.6 961.86 Output Total 3350 2345 1055 Balance -1227.315 -352.4 -93.14 Weight 144.6 kg 141.1 kg 141.1 kg Intake: IV 981 766 326 0.9% @ KVO 180 180 105 Anidulafungin 100 mg In 100 Sodium Chloride 0.9% 100 ml @ 84 mls/hr IVPB DAILY [facility] Rx#:[id number] Ceftolozane/Tazobactam 0. 100 100 75 gm In Sodium Chloride 0.9% 100 ml @ 100 mls/hr IV Q8HR [facility] Rx#:[id number] Lacosamide IV 150 mg In 50 50 Sodium Chloride 0.9% 50 ml @ 100 mls/hr IVPB BID [facility] Rx#:[id number] Linezolid 600 mg In 300 300 150 Dextrose/Water 1 300ml. bag @ 150 mls/hr IVPB Q12H [facility] Rx#:[id number] Normal Saline: Pressure 36 36 21 Bag Phenytoin Sodium Inj 300 50 50 mg In Sodium Chloride 0.9 % 50 ml @ 80 mls/hr IVPB Q12H [facility] Rx#:[id number] Sodium Acetate 30 meq 65 Potassium Chloride 30 meq Magnesium Sulfate gm 0.5 gm Calcium Gluconate 2 gm In Amino Acids 5 %/ Dextrose 20 % 1,000 ml @ 65 mls/hr IV .BY DURATION [facility] Rx#:[id number] levETIRAcetam IV 1,000 mg 100 100 In Saline 1 100ml.bag @ 400 mls/hr IVPB Q12HR [facility] Rx#:[id number] Intake, IV Titration 300.685 341.6 245.86 Amount Furosemide 100 mg In 54.667 100 100 Sodium Chloride 0.9% 90 ml @ 10 MG/HR 10 mls/hr IV .Q10H [facility] Rx#: [id number] Norepinephrine 32 mg In 105.768 191.6 Sodium Chloride 0.9% 218 ml @ 0.5 MCG/KG/MIN 25. 547 mls/hr IV .Q9H48M [facility] Rx#:[id number] Phenytoin Sodium Inj 300 50 mg In Sodium Chloride 0.9 % 50 ml @ 80 mls/hr IVPB Q12H [facility] Rx#:[id number] Vasopressin 60 unit In 140.25 145.86 Sodium Chloride 0.9% 150 ml @ 0.04 UNITS/MIN 6.12 mls/hr IV .Q24H [facility] Rx#: [id number] TPN/PPN 715 780 390 TPN 715 780 390 Lipid 126 105 Fat Emulsion 20% 250 ml 126 105 In Empty Bag 1 bag @ 21 mls/hr IV TuFr [facility] Rx#: [id number] Output: Gastric Drainage 200 Urine 3150 2345 1055 Other: Voiding Method Indwelling Catheter Indwelling Catheter Indwelling Catheter ABP, PAP, CO, CI - Last Documented Arterial Blood Pressure 121/54 - Exam No acute distress S1-S2 heard Lungs clear Abdomen soft Edema - Labs CBC & Chem 7: 09/02/22 08:15 09/02/22 06:30 Labs: Abnormal Lab Results - Last 24 Hours (Table) 09/01/22 09/01/22 09/01/22 Range/Units 15:28 21:16 23:45 WBC (3.8-10.6) k/uL RBC (3.80-5.40) m/uL Hgb (11.4-16.0) gm/dL Hct (34.0-46.0) % MCHC (31.0-37.0) g/dL RDW (11.5-15.5) % ABG pH (7.35-7.45) ABG pCO2 (35-45) mmHg ABG pO2 (83-108) mmHg ABG HCO3 (21-25) mmol/L ABG Total CO2 (19-24) mmol/L Sodium (137-145) mmol/L Chloride (98-107) mmol/L BUN (7-17) mg/dL Creatinine (0.52-1.04) mg/dL Glucose (74-99) mg/dL POC Glucose (mg/dL) 161 H 177 H 178 H (70-110) mg/dL Calcium (8.4-10.2) mg/dL 09/02/22 09/02/22 09/02/22 Range/Units 03:55 06:29 06:30 WBC (3.8-10.6) k/uL RBC (3.80-5.40) m/uL Hgb (11.4-16.0) gm/dL Hct (34.0-46.0) % MCHC (31.0-37.0) g/dL RDW (11.5-15.5) % ABG pH (7.35-7.45) ABG pCO2 (35-45) mmHg ABG pO2 (83-108) mmHg ABG HCO3 (21-25) mmol/L ABG Total CO2 (19-24) mmol/L Sodium 129 L (137-145) mmol/L Chloride 94 L (98-107) mmol/L BUN 88 H (7-17) mg/dL Creatinine 1.55 H (0.52-1.04) mg/dL Glucose 126 H (74-99) mg/dL POC Glucose (mg/dL) 172 H 146 H (70-110) mg/dL Calcium 7.8 L (8.4-10.2) mg/dL 09/02/22 09/02/22 09/02/22 Range/Units 06:37 08:15 08:18 WBC 15.0 H (3.8-10.6) k/uL RBC 3.16 L (3.80-5.40) m/uL Hgb 8.4 L (11.4-16.0) gm/dL Hct 27.4 L (34.0-46.0) % MCHC 30.7 L (31.0-37.0) g/dL RDW 20.3 H (11.5-15.5) % ABG pH 7.33 L (7.35-7.45) ABG pCO2 50 H (35-45) mmHg ABG pO2 112 H (83-108) mmHg ABG HCO3 26 H (21-25) mmol/L ABG Total CO2 27 H (19-24) mmol/L Sodium (137-145) mmol/L Chloride (98-107) mmol/L BUN (7-17) mg/dL Creatinine (0.52-1.04) mg/dL Glucose (74-99) mg/dL POC Glucose (mg/dL) 131 H (70-110) mg/dL Calcium (8.4-10.2) mg/dL 09/02/22 Range/Units 13:18 WBC (3.8-10.6) k/uL RBC (3.80-5.40) m/uL Hgb (11.4-16.0) gm/dL Hct (34.0-46.0) % MCHC (31.0-37.0) g/dL RDW (11.5-15.5) % ABG pH (7.35-7.45) ABG pCO2 (35-45) mmHg ABG pO2 (83-108) mmHg ABG HCO3 (21-25) mmol/L ABG Total CO2 (19-24) mmol/L Sodium (137-145) mmol/L Chloride (98-107) mmol/L BUN (7-17) mg/dL Creatinine (0.52-1.04) mg/dL Glucose (74-99) mg/dL POC Glucose (mg/dL) 116 H (70-110) mg/dL Calcium (8.4-10.2) mg/dL Microbiology - Last 24 Hours (Table) 08/29/22 13:29 Blood Culture - Preliminary Blood No Growth after 72 hours Assessment and Plan Assessment: #1 acute kidney injury secondary to septic ATN. -Baseline creatinine 0.8 MG per DL from June 2022 -Urinalysis 1+ protein, hematuria with 1 RBC #2 septic shock secondary to complicated UTI/bacteremia #3 metabolic alkalosis from diuretics #4 volume overload #5 septic shock on pressors #6 A. fib with RVR Plan: #1 renal function stable and improving. #2 continue with Lasix drip at 10 mg an hour. #3 daily renal labs #4 avoid nephrotoxic agents and hypotensive episodes
[2022-09-02] MEDS: LORazepam 2 MG/ML INJ IV PRN (16:36)
[2022-09-02 16:45] LABS: Glucose,Whole Blood 166 mg/dL (70-110)
[2022-09-02 19:49] LABS: Glucose,Whole Blood 158 mg/dL (70-110)
[2022-09-02] MEDS: INSULIN DETEMIR (LEVEMIR) 100 UNIT/ML SYR SQ SCH (19:59)
--- NOTE | 2022-09-02 21:05 | P.PN ---
Subjective Progress Note Date: 09/02/22 Principal diagnosis: Sepsis/septic shock Patient is a 87-year-old female with multiple comorbidities presented to the hospital with a syncopal episode weakness subsequently hypotension, sepsis requiring transfer to the ICU and intubation on the vent. She patient did have a CT of abdominal pelvis completed on 08/20/2022 with evidence of pneumoperitoneum Gen. surgery discussed with the family currently being treated medically On today's evaluation that is 09/02/2022, the patient continues to be afebrile, the patient continues to be on pressor support to maintain her blood pressure however is slightly lower amount compared to yesterday per the nursing staff, the patient FiO2 is stable at 45 %, no purulent secretions through the ET , patient did have NG to suction, tube feeds has been has been restarted at a lower rate as the patient did have abdominal distention patient did have a fecal management system for her diarrhea Objective - Vital Signs Vital signs: Vital Signs Temp 97.6 F 09/02/22 12:00 Pulse 96 09/02/22 14:00 Resp 30 H 09/02/22 14:00 BP 108/65 09/02/22 14:00 Pulse Ox 99 09/02/22 14:00 FiO2 40 09/02/22 12:00 Intake & Output 09/01/22 09/02/22 09/02/22 18:59 06:59 18:59 Intake Total 2122.685 1992.6 961.86 Output Total 3350 2345 1055 Balance -1227.315 -352.4 -93.14 Weight 144.6 kg 141.1 kg 141.1 kg Intake: IV 981 766 326 0.9% @ KVO 180 180 105 Anidulafungin 100 mg In 100 Sodium Chloride 0.9% 100 ml @ 84 mls/hr IVPB DAILY [facility] Rx#:[id number] Ceftolozane/Tazobactam 0. 100 100 75 gm In Sodium Chloride 0.9% 100 ml @ 100 mls/hr IV Q8HR [facility] Rx#:[id number] Lacosamide IV 150 mg In 50 50 Sodium Chloride 0.9% 50 ml @ 100 mls/hr IVPB BID [facility] Rx#:[id number] Linezolid 600 mg In 300 300 150 Dextrose/Water 1 300ml. bag @ 150 mls/hr IVPB Q12H [facility] Rx#:[id number] Normal Saline: Pressure 36 36 21 Bag Phenytoin Sodium Inj 300 50 50 mg In Sodium Chloride 0.9 % 50 ml @ 80 mls/hr IVPB Q12H [facility] Rx#:[id number] Sodium Acetate 30 meq 65 Potassium Chloride 30 meq Magnesium Sulfate gm 0.5 gm Calcium Gluconate 2 gm In Amino Acids 5 %/ Dextrose 20 % 1,000 ml @ 65 mls/hr IV .BY DURATION [facility] Rx#:[id number] levETIRAcetam IV 1,000 mg 100 100 In Saline 1 100ml.bag @ 400 mls/hr IVPB Q12HR [facility] Rx#:[id number] Intake, IV Titration 300.685 341.6 245.86 Amount Furosemide 100 mg In 54.667 100 100 Sodium Chloride 0.9% 90 ml @ 10 MG/HR 10 mls/hr IV .Q10H [facility] Rx#: [id number] Norepinephrine 32 mg In 105.768 191.6 Sodium Chloride 0.9% 218 ml @ 0.5 MCG/KG/MIN 25. 547 mls/hr IV .Q9H48M [facility] Rx#:[id number] Phenytoin Sodium Inj 300 50 mg In Sodium Chloride 0.9 % 50 ml @ 80 mls/hr IVPB Q12H [facility] Rx#:[id number] Vasopressin 60 unit In 140.25 145.86 Sodium Chloride 0.9% 150 ml @ 0.04 UNITS/MIN 6.12 mls/hr IV .Q24H [facility] Rx#: [id number] TPN/PPN 715 780 390 TPN 715 780 390 Lipid 126 105 Fat Emulsion 20% 250 ml 126 105 In Empty Bag 1 bag @ 21 mls/hr IV TuFr [facility] Rx#: [id number] Output: Gastric Drainage 200 Urine 3150 2345 1055 Other: Voiding Method Indwelling Catheter Indwelling Catheter Indwelling Catheter ABP, PAP, CO, CI - Last Documented Arterial Blood Pressure 121/54 - Exam GENERAL DESCRIPTION: An elderly female intubated on the vent RESPIRATORY SYSTEM: Unlabored breathing , decreased breath sounds at bases HEART: S1 S2 regular rate and rhythm , ABDOMEN: Soft , abdominal distention EXTREMITIES: Diffuse swelling bilateral lower extremity no redness - Labs CBC & Chem 7: 09/02/22 08:15 03/04/23 06:30 Labs: Abnormal Lab Results - Last 24 Hours (Table) 09/01/22 09/01/22 09/01/22 Range/Units 15:28 21:16 23:45 WBC (3.8-10.6) k/uL RBC (3.80-5.40) m/uL Hgb (11.4-16.0) gm/dL Hct (34.0-46.0) % MCHC (31.0-37.0) g/dL RDW (11.5-15.5) % ABG pH (7.35-7.45) ABG pCO2 (35-45) mmHg ABG pO2 (83-108) mmHg ABG HCO3 (21-25) mmol/L ABG Total CO2 (19-24) mmol/L Sodium (137-145) mmol/L Chloride (98-107) mmol/L BUN (7-17) mg/dL Creatinine (0.52-1.04) mg/dL Glucose (74-99) mg/dL POC Glucose (mg/dL) 161 H 177 H 178 H (70-110) mg/dL Calcium (8.4-10.2) mg/dL 09/02/22 09/02/22 09/02/22 Range/Units 03:55 06:29 06:30 WBC (3.8-10.6) k/uL RBC (3.80-5.40) m/uL Hgb (11.4-16.0) gm/dL Hct (34.0-46.0) % MCHC (31.0-37.0) g/dL RDW (11.5-15.5) % ABG pH (7.35-7.45) ABG pCO2 (35-45) mmHg ABG pO2 (83-108) mmHg ABG HCO3 (21-25) mmol/L ABG Total CO2 (19-24) mmol/L Sodium 129 L (137-145) mmol/L Chloride 94 L (98-107) mmol/L BUN 88 H (7-17) mg/dL Creatinine 1.55 H (0.52-1.04) mg/dL Glucose 126 H (74-99) mg/dL POC Glucose (mg/dL) 172 H 146 H (70-110) mg/dL Calcium 7.8 L (8.4-10.2) mg/dL 09/02/22 09/02/22 09/02/22 Range/Units 06:37 08:15 08:18 WBC 15.0 H (3.8-10.6) k/uL RBC 3.16 L (3.80-5.40) m/uL Hgb 8.4 L (11.4-16.0) gm/dL Hct 27.4 L (34.0-46.0) % MCHC 30.7 L (31.0-37.0) g/dL RDW 20.3 H (11.5-15.5) % ABG pH 7.33 L (7.35-7.45) ABG pCO2 50 H (35-45) mmHg ABG pO2 112 H (83-108) mmHg ABG HCO3 26 H (21-25) mmol/L ABG Total CO2 27 H (19-24) mmol/L Sodium (137-145) mmol/L Chloride (98-107) mmol/L BUN (7-17) mg/dL Creatinine (0.52-1.04) mg/dL Glucose (74-99) mg/dL POC Glucose (mg/dL) 131 H (70-110) mg/dL Calcium (8.4-10.2) mg/dL 09/02/22 Range/Units 13:18 WBC (3.8-10.6) k/uL RBC (3.80-5.40) m/uL Hgb (11.4-16.0) gm/dL Hct (34.0-46.0) % MCHC (31.0-37.0) g/dL RDW (11.5-15.5) % ABG pH (7.35-7.45) ABG pCO2 (35-45) mmHg ABG pO2 (83-108) mmHg ABG HCO3 (21-25) mmol/L ABG Total CO2 (19-24) mmol/L Sodium (137-145) mmol/L Chloride (98-107) mmol/L BUN (7-17) mg/dL Creatinine (0.52-1.04) mg/dL Glucose (74-99) mg/dL POC Glucose (mg/dL) 116 H (70-110) mg/dL Calcium (8.4-10.2) mg/dL Microbiology - Last 24 Hours (Table) 08/29/22 13:29 Blood Culture - Preliminary Blood No Growth after 72 hours Assessment and Plan (1) Sepsis Current Visit: Yes Status: Acute Code(s): A41.9 - SEPSIS, UNSPECIFIED ORGANISM SNOMED Code(s): 94750251 Plan: 1patient was in the hospital with sepsis and septic shock initially concern for multidrug-resistant Pseudomonas UTI, patient also have a candidemia secondary to possible abdominal source and now with a VRE bacteremia source likely abdominal 2patient did have evidence of colonic perforation and peritonitis being managed medically as the patient considered to be high risk for any surgical procedure 3patient did have persistent VRE bacteremia and could be related to the multiple lines , patient will benefit from removal of those lines to control her bacteremia, patient did have a repeat blood cultures on 08/29/2022 those are negative so far 4-the patient clinical condition remains to be guarded however the patient did have resolution of her fever and repeat blood culture has been negative so far, the patient white count still elevated could be related to steroids, however the white count is trending down down to 15,000 today 5- patient to continue with with the current broad-spectrum antibiotics of Zyvox Zerbex and Eraxis and monitor clinical course closely prognosis remains to be guarded Time with Patient: Less than 30
[2022-09-03] MEDS: PHENYTOIN SODIUM INJ 300 MG in SODIUM CHLORIDE 0.9% 50 ML IVPB SCH ×2 (00:33→13:00)
[2022-09-03] MEDS: LINEZOLID 600 MG in DEXTROSE/WATER 1 300ML.BAG IVPB SCH ×2 (00:40→12:44)
[2022-09-03 00:48] LABS: Glucose,Whole Blood 172 mg/dL (70-110)
[2022-09-03] MEDS: INSULIN ASPART (NovoLOG) 100 UNIT/ML VIAL SQ SCH ×6 (00:49→21:14)
[2022-09-03] MEDS: CEFTOLOZANE/TAZOBACTAM 0.75 GM in SODIUM CHLORIDE 0.9% 100 ML IV SCH ×3 (00:52→17:25)
[2022-09-03] MEDS: FUROSEMIDE 100 MG in SODIUM CHLORIDE 0.9% 90 ML IV SCH ×3 (02:55→23:42)
[2022-09-03 04:04] LABS: Glucose,Whole Blood 162 mg/dL (70-110)
[2022-09-03 05:34] LABS: Glucose,Whole Blood 158 mg/dL (70-110)
[2022-09-03 05:57] LABS: Anisocytosis Moderate; HCT 27.8 % (34.0-46.0); HGB 8.7 gm/dL (11.4-16.0); Hypochromasia Moderate; MCH 27.9 pg (25.0-35.0); MCHC 31.4 g/dL (31.0-37.0); MCV 88.7 fL (80.0-100.0); Platelet Count 141 k/uL (150-450); Poikilocytosis Moderate; RBC 3.14 m/uL (3.80-5.40); RDW 20.5 % (11.5-15.5); WBC 17.2 k/uL (3.8-10.6)
[2022-09-03 06:12] LABS: Calcium 8.1 mg/dL (8.4-10.2); Magnesium 2.1 mg/dL (1.6-2.3); Phosphorus 3.1 mg/dL (2.5-4.5); Potassium 3.5 mmol/L (3.5-5.1)
[2022-09-03 06:43] LABS: ABG HCO3 26 mmol/L (21-25); ABG Oxygen Saturation 96.2 % (94-97); ABG PCO2 49 mmHg (35-45); ABG PH 7.33 (7.35-7.45); ABG PO2 102 mmHg (83-108); ABG TCO2 27 mmol/L (19-24); Allen Test Performed? Yes
[2022-09-03] MEDS: MIDAZOLAM HCL 50 MG in SODIUM CHLORIDE 0.9% 40 ML IV SCH ×3 (07:22→17:24)
--- NOTE | 2022-09-03 07:43 | XR ---
EXAMINATION TYPE: XR chest 1V portable DATE OF EXAM: 09/03/2022 6:10 AM COMPARISON: Chest radiographs from 08/31/2022 TECHNIQUE: XR chest 1V portable Portable AP radiograph of the chest. CLINICAL INDICATION:Female, 87 years old with history of trach to vent; FINDINGS: Lungs/Pleura: Bibasilar airspace opacities similar to prior. There is no evidence of pleural effusion , focal consolidation, or pneumothorax. Pulmonary vascularity: Unremarkable. Heart/mediastinum: Cardiomediastinal silhouette is unremarkable. Musculoskeletal: No acute osseous pathology. Other findings: None Lines/Tubes: Tracheostomy cannula tip projecting over the trachea. Nasogastric tube with its distal tip and side-port projecting under the diaphragm. Left central venous catheter with distal tip at the cavoatrial junction. IMPRESSION: Similar bilateral airspace opacities should represent atelectasis in setting of small bilateral pleur al effusions. 1. Tracheostomy and nasogastric tube in appropriate position.
[2022-09-03] MEDS: ALBUTEROL NEBULIZED 2.5 MG/3 ML INHALATION SCH ×4 (08:23→20:20)
[2022-09-03] MEDS: IPRATROPIUM 0.5 MG/2.5 ML NEBU INHALATION SCH ×4 (08:24→20:20)
[2022-09-03] MEDS: ANIDULAFUNGIN 100 MG in SODIUM CHLORIDE 0.9% 100 ML IVPB SCH (08:31)
[2022-09-03] MEDS: levETIRAcetam IV 1,000 MG in SALINE 1 100ML.BAG IVPB SCH ×2 (08:31→21:15)
[2022-09-03] MEDS: LACTULOSE 20 GM/30 ML CUP PO SCH ×4 (08:32→21:25)
[2022-09-03] MEDS: metOLazone 5 MG TAB PO SCH ×2 (08:33→21:16)
[2022-09-03] MEDS: AMIODARONE 200 MG TAB PO SCH ×2 (08:33→21:15)
[2022-09-03] MEDS: POTASSIUM BICARBONATE/CIT AC 20 MEQ TABLET.EFF NG-TUBE SCH ×2 (08:33→10:23)
[2022-09-03] MEDS: PANTOPRAZOLE 40 MG/10 ML VIAL IVP SCH (08:33)
[2022-09-03] MEDS: VASOPRESSIN 60 UNIT in SODIUM CHLORIDE 0.9% 150 ML IV SCH (08:34)
[2022-09-03] MEDS: polyethylene glycoL 3350 17 GM POWD.PACK PO SCH ×2 (08:35→21:24)
[2022-09-03] MEDS: LACOSAMIDE IV 150 MG in SODIUM CHLORIDE 0.9% 50 ML IVPB SCH ×2 (09:18→21:15)
[2022-09-03] MEDS: 1: MVI, ADULT NO.4 WITH VIT K 10 ML, TRACE (CONC-1ML/DOSE) 1 ML, SODIUM ACETATE 50 MEQ, IV SCH ×8 (09:19)
[2022-09-03] MEDS: ERGOCALCIFEROL 1,250 MCG (50,000 IU) CAPSULE PO SCH (10:23)
--- NOTE | 2022-09-03 10:32 | P.PN ---
Progress Note - Text Progress Note Date: 09/03/22 Tracheostomy site is clean. Patient will continue to receive supportive care.
[2022-09-03] MEDS: NOREPINEPHRINE 32 MG in SODIUM CHLORIDE 0.9% 218 ML IV SCH ×2 (10:36→17:26)
--- NOTE | 2022-09-03 11:51 | P.PN ---
Subjective Progress Note Date: 09/03/22 The patient is seen at bedside and continues to be off sedation. She continues to be intubated and on ventilator. According to nurse no improvement in her condition and no further clinical seizures. The nurse stated that declined CT head yesterday and he told me that she had too many CT and did not feel the need for it. Objective - Vital Signs Vital signs: Vital Signs Temp 97.6 F 09/03/22 08:00 Pulse 96 09/03/22 11:30 Resp 30 H 09/03/22 11:00 BP 128/47 09/02/22 15:00 Pulse Ox 100 09/03/22 11:00 FiO2 40 09/03/22 11:21 Intake & Output 09/02/22 09/03/22 09/03/22 18:59 06:59 18:59 Intake Total 2796.580 1336.5 1041.583 Output Total 1805 3450 1325 Balance 991.580 -2113.5 -283.417 Weight 141.1 kg 141.2 kg Intake: IV 416 466 325 0.9% @ KVO 180 180 60 Anidulafungin 100 mg In 100 Sodium Chloride 0.9% 100 ml @ 84 mls/hr IVPB DAILY [facility] Rx#:[id number] Ceftolozane/Tazobactam 0. 100 75 gm In Sodium Chloride 0.9% 100 ml @ 100 mls/hr IV Q8HR [facility] Rx#:[id number] Lacosamide IV 150 mg In 50 Sodium Chloride 0.9% 50 ml @ 100 mls/hr IVPB BID [facility] Rx#:[id number] Linezolid 600 mg In 150 Dextrose/Water 1 300ml. bag @ 150 mls/hr IVPB Q12H [facility] Rx#:[id number] Normal Saline: Pressure 36 36 15 Bag Phenytoin Sodium Inj 300 50 50 mg In Sodium Chloride 0.9 % 50 ml @ 80 mls/hr IVPB Q12H [facility] Rx#:[id number] levETIRAcetam IV 1,000 mg 100 100 In Saline 1 100ml.bag @ 400 mls/hr IVPB Q12HR [facility] Rx#:[id number] Intake, IV Titration 1610.580 90.5 391.583 Amount Furosemide 100 mg In 191 90.5 63.833 Sodium Chloride 0.9% 90 ml @ 10 MG/HR 10 mls/hr IV .Q10H [facility] Rx#: [id number] Norepinephrine 32 mg In 189.720 195.150 Sodium Chloride 0.9% 218 ml @ 0.5 MCG/KG/MIN 25. 547 mls/hr IV .Q9H48M [facility] Rx#:[id number] Sodium Acetate 50 meq 1084 Potassium Chloride 40 meq Magnesium Sulfate gm 0. 75 gm Calcium Gluconate 3 gm Sodium Chloride 4Meq/ ml Vial 30 meq In Amino Acids 5 %/Dextrose 20 % 1 ,000 ml @ 65 mls/hr IV . BY DURATION [facility] Rx#: [id number] Vasopressin 60 unit In 145.86 132.6 Sodium Chloride 0.9% 150 ml @ 0.04 UNITS/MIN 6.12 mls/hr IV .Q24H [facility] Rx#: [id number] Tube Feeding 25 TPN/PPN 715 780 325 TPN 715 780 325 Other 30 Output: Gastric Drainage 250 50 Urine 1805 2450 1275 Stool 500 Other 250 Other: Voiding Method Indwelling Catheter Indwelling Catheter Indwelling Catheter ABP, PAP, CO, CI - Last Documented Arterial Blood Pressure 133/55 - Exam GENERAL: The patient is lying in bed and does not appear in acute distress. LUNG:Trach on ventilator. NEUROLOGICAL: Not on sedation (IV Ativan and Versed has been stopped since 08/30/22 at 11ish AM). Higher mental function: The patient is comatose. Is GCS 3( E1, VT1, M1). Cranial nerves: I had to manually open her eyes. Primary gaze is midline. The pupils are round, equal, 3mm and reactive to light. +ve corneal reflex bilaterally. No facial weakness. Is breathing over the vent (AC set at 30 and brought to 8 and was breathing in 16). Has weak gag reflex. Motor: The strength is no withdrawal to painful stimuli. No spontanous mov ement. Sensation: Unable to assess light touch. - Labs CBC & Chem 7: 09/03/22 05:34 09/03/22 12:52 Labs: Abnormal Lab Results - Last 24 Hours (Table) 09/02/22 09/02/22 09/02/22 Range/Units 13:18 16:41 19:47 WBC (3.8-10.6) k/uL RBC (3.80-5.40) m/uL Hgb (11.4-16.0) gm/dL Hct (34.0-46.0) % RDW (11.5-15.5) % Plt Count (150-450) k/uL ABG pH (7.35-7.45) ABG pCO2 (35-45) mmHg ABG HCO3 (21-25) mmol/L ABG Total CO2 (19-24) mmol/L Sodium (137-145) mmol/L Chloride (98-107) mmol/L BUN (7-17) mg/dL Creatinine (0.52-1.04) mg/dL Glucose (74-99) mg/dL POC Glucose (mg/dL) 116 H 166 H 158 H (70-110) mg/dL Calcium (8.4-10.2) mg/dL 09/03/22 09/03/22 09/03/22 Range/Units 00:45 04:00 05:31 WBC (3.8-10.6) k/uL RBC (3.80-5.40) m/uL Hgb (11.4-16.0) gm/dL Hct (34.0-46.0) % RDW (11.5-15.5) % Plt Count (150-450) k/uL ABG pH (7.35-7.45) ABG pCO2 (35-45) mmHg ABG HCO3 (21-25) mmol/L ABG Total CO2 (19-24) mmol/L Sodium (137-145) mmol/L Chloride (98-107) mmol/L BUN (7-17) mg/dL Creatinine (0.52-1.04) mg/dL Glucose (74-99) mg/dL POC Glucose (mg/dL) 172 H 162 H 158 H (70-110) mg/dL Calcium (8.4-10.2) mg/dL 09/03/22 09/03/22 09/03/22 Range/Units 05:34 05:34 06:39 WBC 17.2 H (3.8-10.6) k/uL RBC 3.14 L (3.80-5.40) m/uL Hgb 8.7 L (11.4-16.0) gm/dL Hct 27.8 L (34.0-46.0) % RDW 20.5 H (11.5-15.5) % Plt Count 141 L (150-450) k/uL ABG pH 7.33 L (7.35-7.45) ABG pCO2 49 H (35-45) mmHg ABG HCO3 26 H (21-25) mmol/L ABG Total CO2 27 H (19-24) mmol/L Sodium 129 L (137-145) mmol/L Chloride 94 L (98-107) mmol/L BUN 89 H (7-17) mg/dL Creatinine 1.35 H (0.52-1.04) mg/dL Glucose 132 H (74-99) mg/dL POC Glucose (mg/dL) (70-110) mg/dL Calcium 8.1 L (8.4-10.2) mg/dL Microbiology - Last 24 Hours (Table) 08/29/22 13:29 Blood Culture - Preliminary Blood No Growth after 96 hours Assessment and Plan Assessment: * 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 On keppra, Vimpat and Dilantin. Also has tried IV versed and IV ativan without improvement. IV sedation has been off since 08/30/22. * Altered mental status multifactorial as mentioned below. Patient seizure and it seems partial status, septic encephalopathy, Iversed and Ativan--off since 08/30/22 close to 11ish AM. Also has some component of metabolic encephalopathy and hepatic encephalopathy. * Probable perforated viscus with pneumoperitoneum. * Septicemia, with leukocytosis and blood culture persistently positive with enterococcus faecium. Blood cultures positive as of 08/23/2022--wbc is trending down and no further fever * Hepatic encephalopathy with initial elevated ammonia and trending down. * Septic shock requiring high-dose pressors and seems has urinary tract infection with urine culture positive for Enterococcus faecalis and Pseudomonas aeruginosa as well as systemic candidiasis * Atrial fibrillation on eliquis (which has hx of afib) , currently on hold. * Acute on chronic hypoxemic respiratory failure secondary to diastolic congestive heart failure requiring intubation mechanical ventilation * Acute on chronic kidney disease--trending down * History of TIAs/stroke * History of coronary artery disease with stent * Hypertension * Hyperlipidemia * Diabetes mellitus * Anemia * Hypocalcemia--resolved Plan: * Yesterday the patient's refused repeat CT head since he felt she had many CT head in our facility, then asked me if will get approved by insurance? Today he is in agreement. The nurse stated will pursue CT head if continues to be hemodynamically stable. * Clinically it appears partial status has resolved. No focal twitches noticed at this time. * Patient has multiple 2.5 hour EEG's and routine EEG's. Most recent 2.5 hour EEG on 08/30/22 reported as: Markedly abnormal 2.5 hour video EEG. This EEG demonstrates the patient to be in partial status epilepticus originating from the left posterior quadrant. Also burst suppression pattern was seen. The burst suppression pattern indicating severe diffuse cerebral dysfunction which may be in part due to medication effect. Based on maximum amplitude of the ictal discharges these findings indicate the presence of epileptiform focus more than one up of home focus cannot be excluded involving the left parietal region. The left parietal occipital region, greater involvement of the left hemisphere for an additional independent epileptiform focus involving the right posterior quadrant is not necessarily excluded. * Most recent routine EEG on 09/01/22: She continued to have burst suppresion with discharges suggestive of status epilepticus. The suppression is due status epilepticus vs anoxia. The background slowing is suggestive of severe encephalopathy. The EEG is unchanged compared to most recent EEG. * Patient already on high dose Vimpat 150 mg twice a day, Keppra 1000 mg twice a day (both of them adjusted for current renal functions). Also on Dilantin 300mg every 12 hours. On Versed 9 mg per hour and been on Versed since 0 08/25/22 and IV Ativan 8mg/hr close to 24 hours without improvement. IV sedation has been off since 08/30/22 around 11ish AM. * Cannot give Depakote because of hyperammonemia. Her Keppra level on : 68.9 (normal is 3-60). * Continue Ativan 1-2 mg every 4 hours when necessary seizure. * Repeat CT head 08/24/2022, which did not reveal any acute intracranial process . However there is possible bilateral mastoiditis and middle ear infections spread. Correlate clinically. Patchy paranasal sinus disease. I personally reviewed CT head, and there is evidence of air-fluid level in the left maxillary sinus. Agree with evidence of possible bilateral mastoiditis and fluid in the middle ear. I discussed with PCP about possibility of lumbar puncture. ID is also on board. Patient currently on Eraxis, Zerbaxa, daptomycin. Per ID, patient is already covered well for meningitis. * Patient's initial Ammonia was 214. Latest was 50. Patient on lactulose. * Surgery on board. * Patient is on pressors * We'll defer the rest of medical management to primary and ICU team From neurological perspective patient has super-refractory status epileptic even though was on IV Versed since 08/25/22 till 08/30/22 and IV Ativan from 08/29/22 till 08/30/22 for about 24 hours not including 3 drugs (Keppra, Dilantin and Vimpat) without any benefit. Patient and daughter does want IV sedation running and to resume if clinically seizing. Patient prognosis is very poor. She has brainstem reflexes (is not brain ) but I feel her quality of life is very poor. The family would like to continue with care and are aware of her overall condition. The plan is discussed with patient's who is at bedside, ICU team. Will continue to follow. Dr. Abrams will start neurology service tomorrow A.M. Time with Patient: Less than 30
--- NOTE | 2022-09-03 11:57 | P.PN ---
Subjective Progress Note Date: 09/03/22 Principal diagnosis: Respiratory failure. Reevaluated today on 08/25/2022, patient remains in the ICU, intubated and mechanically ventilated, he is on assist control rate of 28th of volume 400 FiO2 50% PEEP of 5 ABG showed a pO2 of 91 pCO2 42 pH of 7.28 patient is scheduled to undergo tracheostomy and PEG tube placement today, hence no changes were made in her present ventilator settings. Patient is still maximized on pressors including norepinephrine at 0.5 mcg/kg/m vasopressin at 0.04 units per minute she is also on amiodarone 1 mg/m TPN at 50 mL/h. Sodium bicarb 3 A in D5W at 75 mL per hour she is also on Versed 6 mg per hour. Chest x-ray shows worsening in her bilateral pneumonia. WBC count is getting worse today 21.7 hemoglobin is 7.3, basic metabolic profile showed slightly low potassium of 3.0, BUN is 79 creatinine 1.87, basically unchanged in the last couple of days. Serum albumin is 1.7. Ionized calcium is 5.2, patient received calcium earlier today Reevaluated today on 08/26/2022, patient remains in the ICU, intubated mechanically ventilated, she is now on assist control rate of 30 tidal volume 400 FiO2 45% PEEP is at 10. Try to go down on the feet, however the patient desaturated and I kept her on a PEEP of 10. ABG today showed a pO2 of 84 pCO2 47 pH of 7.26. Patient remains on multiple drips, she had uneventful tracheostomy placed on 08/25 yesterday. However she did not have a PEG tube, continues to have a nasogastric tube in place. She is now on norepinephrine at 0.47 vasopressin at 0.04 amiodarone at 1 mg/m, bicarb at 75 mL/h Versed at 7 mg per hour today I added Solu-Medrol 40 mg IV push every 8 hours. Mostly because on physical examination she has significant rhonchi and wheezes chest x-ray continues to show bilateral infiltrates. Not much of a change. Overall clinical status about the same and unchanged. Patient remains quite swollen and edematous. Remains on Lasix 80 mg IV push daily. WBC count is rising 21.3. H emoglobin is 7.2. Basic metabolic profile is abnormal with low potassium and low sodium low bicarb elevated BUN of 76 creatinine 1.74. Ionized calcium is 5.6 ammonia level remains elevated at 171. Reevaluated today on 08/27/2022, patient remains in the ICU, intubated and mechanically ventilated sedated, patient is on multiple drips including norepinephrine at 0.3 mcg/kg/m vasopressin at 0.04, amiodarone, bicarbonate 75 ML per hour, and she is also on Versed 7 mg per hour. Patient is on assist control rate of 30 tidal volume 400 FiO2 45% PEEP of 10 ABG showed a pO2 of 100 pCO2 48 pH of 7.30. Patient has been receiving Versed, today I recommended that we stop the Versed and assess mental status if possible. Patient continues to have multiple medical issues, and I believe the patient is worsening clinically. Now she is developing ischemic changes in her fingers and in her toes, becoming more cyanotic. And that is mostly because of significant amount of pressors and the patient has been receiving. Today I recommended that we cut down on the presses since her blood pressure seems to be better and I recommended that we stop her Versed to assess mental status if possible. Hospice son is at bedside, updated the son in her condition, family is very well aware that her condition i s extremely poor and futile, nonetheless the is not ready to let go. I have strongly recommended comfort care measures, remains reluctant to do so. WBC count today is 21.3 hemoglobin 7.2. Basic metabolic profile is normal however her BUN is 75 creatinine 1.8 2, chest x-ray continues to show bilateral air space disease and possibly bilateral pleural effusions tracheostomy seems to be in proper position. Progress note dated 08/28/2022. 87-year-old female who was admitted back on August 08. She initially came in with urinary tract infection, possible bowel obstruction, and sepsis. The patient came to the intensive care unit one day later on the , and was intubated on August 10. For prolonged respiratory failure, and inability to wean, the patient underwent tracheostomy on August 25, and is apparently scheduled to have a PEG tube placed today. She remains on volume assist control, rate 30, tidal volume 400, FiO2 45%, and PEEP of 10. Arterial blood gases show pO2 of 95, pCO2 51, and pH is 7.25. The patient remains on TPN at 65 mL an hour, norepinephrine at 46 mcg/m, Versed 7 mg an hour, saline at KVO, insulin at 50 units an hour, and Lasix at 10 mg an hour. White count 22.4, hemoglobin 6.9, hematocrit 22.6, and platelet count 277,000. Sodium 1:30, potassium 3.6, chlorides 97, CO2 23, BUN 79, and creatinine 1.70. Review his blood cultures from the and August 23 show vancomycin-resistant enterococcus. There was no chest x-ray today. Progress note dated 08/29/2022. 87-year-old female who was admitted back on August 08. She initially came in with urinary tract infection, possible bowel obstruction, and sepsis. The patient came to the intensive care unit one day later on the , and was intubated on August 10. For prolonged respiratory failure, and inability to wean, the patient underwent tracheostomy on August 25. The patient remains on the volume assist control, tidal volume 400, FiO2 5%, and PEEP of 10. Arterial blood gases show pO2 105, pCO2 46, pH is 7.32. His blood gases are consistent with a mild respiratory acidosis. The patient remains on Lasix at 10 mg an hour, TPN at 65 mL an hour, Versed 9 mg an hour, norepinephrine at 21 mcg/m, vasopressin at 0.04 units per minute, and saline at 30 mL an hour. The patient received 1 unit packed red blood cells for hemoglobin of 6.5. Her antibiotics include Eraxis, Zyvox and Zerbaxa. White count is 22.6, hemoglobin 6.5, hematocrit 22.3, with a normal platelet count. Sodium 129, potassium 4.3, chlorides 96, CO2 24, BUN 80, and creatinine 1.62. Albumin is 1.6. Chest x-ray shows bilateral infiltrates, which may be on the basis of pneumonia versus CHF. Progress note dated 08/30/2022. 87-year-old female who was admitted on August 08. She initially was admitted with a diagnosis of urinary tract infection, sepsis, and possible bowel obstruction. The patient came to the intensive care unit one day later, and was intubated on August 10. Because of prolonged respiratory failure and inability to wean, the patient underwent tracheostomy on 08/25. Current ventilator settings include the volume assist control, rate 30, tidal volume 400, FiO2 45%, and PEEP of 10. Arterial blood gases show a PaO2 of 87, pCO2 44, and a pH is 7.31. The patient remains on TPN at 65 mL an hour, norepinephrine at 24 mcg/m, vasopressin 0.04 units per minute, Versed 9 mg an hour, Ativan at 8 mg an hour, and Lasix drip at 10 mg an hour. The patient is scheduled to have another EEG today. The patient is currently on Eraxis, Zyvox, and Zerbaxa. White count 20 .7, hemoglobin 8.1, hematocrit 26.3, and platelet count 221,000. Sodium 126, potassium 4, chlorides 93, CO2 21, BUN 81, and creatinine 1.62. The rest of the labs look okay. Chest x-ray shows diffuse bilateral infiltrates, and are largely unchanged. Progress note dated 08/31/2022. 87-year-old female who was admitted on August 08. She was initially admitted with a diagnosis of urinary tract infection, sepsis, and possible bowel obstruction. She came to the intensive care unit one day later, and was intubated on August 10. Because of prolonged respiratory failure and inability to wean, the patient underwent tracheostomy on August 25. Current ventilator settings include the volume assist control, rate 30, tidal volume 400, FiO2 45%, and PEEP of 10. Arterial blood gases showed pO2 101, pCO2 50, and pH of 7.28. The patient remains on TPN at 65 mL an hour, norepinephrine at 40 mcg/m, vasopressin at 0.04 units per minute, Lasix at 10 mg an hour, and tube feedings, at 10 mL an hour. She will be getting the tube feeds, via nasogastric tube. She remains on antibiotics, and antifungals. White count 21.3, hemoglobin 8.8, hematocrit 27.5, and platelet count 237,000. Sodium 127, potassium 4.4, chlorides 95, CO2 23, BUN 81, and creatinine 1.73. Ammonia level is 60. Chest x-ray shows mild vascular congestion. There are also bibasilar infiltrates. Progress note dated 09/01/2022. 87-year-old female again seen in room 265. The patient has been here in the hospital now for 24 days. She remains on the mechanical ventilator. She was initially admitted with a diagnosis of urinary tract infection, sepsis, and possible bowel obstruction. The patient remains on volume assist control, rate 30, tidal volume 400, FiO2 45%, and PEEP of 10. Blood gases show pO2 103, pCO2 44, and a pH is 7.34. She is on norepinephrine at 33 mcg/m, Lasix drip at 10 mg an hour, vasopressin at 0.04 units per minute and TPN at 65 mL an hour. In addition, the patient is receiving saline at 20 mL an hour. We attempted a left radial art line today, but were unable to cannulate the artery. Sodium 126, potassium 4.7, chlorides 96, CO2 21, BUN 86, creatinine 1.65. CBC has not yet been done. No chest x-ray today. Progress note dated 09/02/2022. 87-year-old female seen in room 265. She's now been in the hospital for 25 days. The patient was initially admitted with a diagnosis of bowel obstruction, sepsis, and urinary tract infection. The patient has been on the ventilator for a number of days, and has not been able to be weaned. She is status post tracheostomy. Currently, she is on volume assist control, with a rate of 30, tidal volume 400, FiO2 45%, and a PEEP of 10. Blood gases show pO2 of 112, PaCO2 50, and a pH of 7.33. She's getting norepinephrine at 30 mcg/m, va sopressin at 0.04 units per minute, a Lasix drip at 10 mg an hour, and TPN at 65 mL an hour. We will turn the FiO2 down from 45%, down to 40%. She's apparently scheduled for a computed tomography scan of the brain today. Also, we will attempt to give her tube feedings were NG tube. White count is 15, hemoglobin 8.4, hematocrit 27.4, and platelet count 168,000. Sodium 129, potassium 4.3, chlorides 94, CO2 27, BUN 88, and creatinine 1.55. Progress note dated 09/01/2022. 87-year-old female seen in room 265. She's now been in the hospital for 26 days. The patient was initially admitted with a diagnosis of bowel obstruction, sepsis, urinary tract infection. She remains on the mechanical ventilator, with settings of volume assist control, rate 30, tidal volume 400, FiO2 40%, PEEP of 10. Arterial blood gases show pO2 102, pCO2 49, and a pH is 7.33. Currently, she is on norepinephrine at 24 mcg/m, vasopressin at 0.04 units per minute, Lasix drip at 10 mg an hour, and TPN at 65 mL an hour. The patient is getting saline at keep vein open. We attempted tube feedings, but she could not tolerate it, so they were discontinued. White count 17.2, hemoglobin 8.7, hematocrit 27.8, and platelet count 141,000. Sodium 129, potassium 3.5, chlorides 94, CO2 27, BUN 89, and creatinine 1.35. Chest x-ray shows diffuse bilateral airspace disease, and is largely unchanged. Objective - Vital Signs Vital signs: Vital Signs Temp 97.6 F 09/03/22 08:00 Pulse 97 09/03/22 11:48 Resp 30 H 09/03/22 11:00 BP 128/47 09/02/22 15:00 Pulse Ox 100 09/03/22 11:00 FiO2 40 09/03/22 11:21 Intake & Output 09/02/22 09/03/22 09/03/22 18:59 06:59 18:59 Intake Total 2796.580 1336.5 1041.583 Output Total 1805 3450 1325 Balance 991.580 -2113.5 -283.417 Weight 141.1 kg 141.2 kg Intake: IV 416 466 325 0.9% @ KVO 180 180 60 Anidulafungin 100 mg In 100 Sodium Chloride 0.9% 100 ml @ 84 mls/hr IVPB DAILY [facility] Rx#:[id number] Ceftolozane/Tazobactam 0. 100 75 gm In Sodium Chloride 0.9% 100 ml @ 100 mls/hr IV Q8HR [facility] Rx#:[id number] Lacosamide IV 150 mg In 50 Sodium Chloride 0.9% 50 ml @ 100 mls/hr IVPB BID [facility] Rx#:[id number] Linezolid 600 mg In 150 Dextrose/Water 1 300ml. bag @ 150 mls/hr IVPB Q12H [facility] Rx#:[id number] Normal Saline: Pressure 36 36 15 Bag Phenytoin Sodium Inj 300 50 50 mg In Sodium Chloride 0.9 % 50 ml @ 80 mls/hr IVPB Q12H [facility] Rx#:[id number] levETIRAcetam IV 1,000 mg 100 100 In Saline 1 100ml.bag @ 400 mls/hr IVPB Q12HR [facility] Rx#:[id number] Intake, IV Titration 1610.580 90.5 391.583 Amount Furosemide 100 mg In 191 90.5 63.833 Sodium Chloride 0.9% 90 ml @ 10 MG/HR 10 mls/hr IV .Q10H [facility] Rx#: [id number] Norepinephrine 32 mg In 189.720 195.150 Sodium Chloride 0.9% 218 ml @ 0.5 MCG/KG/MIN 25. 547 mls/hr IV .Q9H48M [facility] Rx#:[id number] Sodium Acetate 50 meq 1084 Potassium Chloride 40 meq Magnesium Sulfate gm 0. 75 gm Calcium Gluconate 3 gm Sodium Chloride 4Meq/ ml Vial 30 meq In Amino Acids 5 %/Dextrose 20 % 1 ,000 ml @ 65 mls/hr IV . BY DURATION [facility] Rx#: [id number] Vasopressin 60 unit In 145.86 132.6 Sodium Chloride 0.9% 150 ml @ 0.04 UNITS/MIN 6.12 mls/hr IV .Q24H [facility] Rx#: [id number] Tube Feeding 25 TPN/PPN 715 780 325 TPN 715 780 325 Other 30 Output: Gastric Drainage 250 50 Urine 1805 2450 1275 Stool 500 Other 250 Other: Voiding Method Indwelling Catheter Indwelling Catheter Indwelling Catheter ABP, PAP, CO, CI - Last Documented Arterial Blood Pressure 133/55 - Exam No acute distress, off all sedation, and currently on the mechanical ventilator. HEENT examination is grossly unremarkable. Neck supple. Full range of motion. No adenopathy thyromegaly or neck vein distention. A midline tracheostomy tube is noted. Cardiovascular examination reveals regular rhythm rate. S1-S2 normal. No S3 or S4. No discernible murmur noted. Heart rate 97 bpm. Lungs reveal scattered bilateral rhonchi. Breath sounds equal. Saturations are 98 %. Abdomen obese, without bowel sounds. Extremities reveal bilateral lower extremity edema. There is diffuse anasarca as well. Gangrenous changes to toe tips and fingertips. Skin is without rash or lesion. Neurologic examination is difficult to assess. - Labs CBC & Chem 7: 09/03/22 05:34 09/03/22 05:34 Labs: Abnormal Lab Results - Last 24 Hours (Table) 09/02/22 09/02/22 09/02/22 Range/Units 13:18 16:41 19:47 WBC (3.8-10.6) k/uL RBC (3.80-5.40) m/uL Hgb (11.4-16.0) gm/dL Hct (34.0-46.0) % RDW (11.5-15.5) % Plt Count (150-450) k/uL ABG pH (7.35-7.45) ABG pCO2 (35-45) mmHg ABG HCO3 (21-25) mmol/L ABG Total CO2 (19-24) mmol/L Sodium (137-145) mmol/L Chloride (98-107) mmol/L BUN (7-17) mg/dL Creatinine (0.52-1.04) mg/dL Glucose (74-99) mg/dL POC Glucose (mg/dL) 116 H 166 H 158 H (70-110) mg/dL Calcium (8.4-10.2) mg/dL 09/03/22 09/03/22 09/03/22 Range/Units 00:45 04:00 05:31 WBC (3.8-10.6) k/uL RBC (3.80-5.40) m/uL Hgb (11.4-16.0) gm/dL Hct (34.0-46.0) % RDW (11.5-15.5) % Plt Count (150-450) k/uL ABG pH (7.35-7.45) ABG pCO2 (35-45) mmHg ABG HCO3 (21-25) mmol/L ABG Total CO2 (19-24) mmol/L Sodium (137-145) mmol/L Chloride (98-107) mmol/L BUN (7-17) mg/dL Creatinine (0.52-1.04) mg/dL Glucose (74-99) mg/dL POC Glucose (mg/dL) 172 H 162 H 158 H (70-110) mg/dL Calcium (8.4-10.2) mg/dL 09/03/22 09/03/22 09/03/22 Range/Units 05:34 05:34 06:39 WBC 17.2 H (3.8-10.6) k/uL RBC 3.14 L (3.80-5.40) m/uL Hgb 8.7 L (11.4-16.0) gm/dL Hct 27.8 L (34.0-46.0) % RDW 20.5 H (11.5-15.5) % Plt Count 141 L (150-450) k/uL ABG pH 7.33 L (7.35-7.45) ABG pCO2 49 H (35-45) mmHg ABG HCO3 26 H (21-25) mmol/L ABG Total CO2 27 H (19-24) mmol/L Sodium 129 L (137-145) mmol/L Chloride 94 L (98-107) mmol/L BUN 89 H (7-17) mg/dL Creatinine 1.35 H (0.52-1.04) mg/dL Glucose 132 H (74-99) mg/dL POC Glucose (mg/dL) (70-110) mg/dL Calcium 8.1 L (8.4-10.2) mg/dL Microbiology - Last 24 Hours (Table) 08/29/22 13:29 Blood Culture - Preliminary Blood No Growth after 96 hours Assessment and Plan Assessment: Acute on chronic hypoxemic respiratory failure, status post intubation on August 10, and tracheostomy on August 25. Acute on chronic diastolic CHF. Abdominal sepsis/septic shock. Anion gap metabolic acidosis. Urinary tract infection secondary to Enterococcus faecalis and pseudomonas aeruginosa. Bacteremia secondary to vancomycin-resistant enterococci. Systemic candidiasis. Atrial fibrillation with RVR. Acute on chronic kidney disease. Recent history of coronavirus infection. History of aortic stenosis. Acute on chronic anemia. History of COPD. History of diastolic congestive heart failure. Morbid obesity. Plan: Plan dated 08/28/2022. The patient remains a DO NOT RESUSCITATE patient, but the patient family still wants everything done at this time. The patient will continue on GI and DVT prophylaxis. The patient continues on antibiotics as per infectious diseases. The patient remains on norepinephrine at 46 mcg/m. She also remains on Versed, because of ongoing seizure activity. The patient continues on insulin at 50 units an hour, and a Lasix drip, as well as TPN. The plan is to do a PEG tube today. Additional recommendations and suggestions are forthcoming. Labs, x- rays, and medications are reviewed. Patient is very critically ill, and overall prognosis remains guarded. Plan dated 08/29/2022. The patient remains a DO NOT RESUSCITATE patient. The patient did have a PEG tube placed yesterday. She remains on multiple drips including Lasix, Versed, norepinephrine, and vasopressin. She will receive 1 unit of packed red blood cells for hemoglobin 6.5. He remains on good antibiotics and antifungals. Blood gases show a very mild respiratory acidosis. She remains on 45% and 10 of PEEP. Prognosis is very guarded. We will continue to follow make recommendations along the way. Plan dated 08/30/2022. The patient remains a DO NOT RESUSCITATE patient. I had a long conversation wit h the yesterday. The patient remains on appropriate medications including antibiotics, and antifungals, TPN, norepinephrine, vasopressin, Versed, and Ativan. In addition, the patient remains on Lasix drip. The patient had an EEG yesterday, and will have another one today. Neurology is fo llowing the patient. Respiratory status is stable. We will continue to follow and make recommendations along the way. Overall prognosis is poor. Plan dated 08/31/2022. The patient is seen today and examined, and room 265. The patient is a DO NOT RESUSCITATE patient. She remains on antifungals and antibiotics. She remains on the mechanical ventilator. A PEG tube could not be placed because of body habitus. She will start tube feedings today to the NG tube. She remains on high doses of both norepinephrine and vasopressin. She also remains on a Lasix drip. Blood gases are adequate. Labs, x-rays, and medications are reviewed. I did speak to neurology about her prognosis, which is poor. Plan dated 09/01/2022. The patient remains on significant doses of both norepinephrine and vasopressin, for blood pressure support. We attempted a left radial art line, could not cannulate the artery today. Labs, x-rays, and medications are all reviewed. We are going to DC the corticosteroids, budesonide, formoterol, and Flomax. Additional recommendations and suggestions are forthcoming. We will continue to follow the patient make recommendations and suggestions along the way. The patient's overall prognosis is very poor and my opinion. I believe neurology feels exactly the same way. Plan dated 09/02/2022. The patient remains on significant doses of both norepinephrine and vasopressin for blood pressure support. The patient will go for a CAT scan of the brain today, if she is stable. We will attempt tube feedings, via the NG tube today as well. Labs, x-rays, and medications are reviewed. Overall prognosis remains very poor. The FiO2 on the ventilator is reduced from 45%, down to 40%. We will continue to follow the patient and make recommendations along the way. I did have a chance to speak to the daughter today. Plan dated 09/03/2022. The patient remains on the mechanical ventilator. She's really made no significant progress. She is unresponsive, and has been off sedation for a number of days. The patient continues on similar antibiotics. We will continue to follow, and make recommendations along the way. Prognosis is very poor. She remains on both norepinephrine and vasopressin for blood pressure support. Labs, x-rays, and medications are reviewed. Prognosis is poor. Time with Patient: Greater than 30
--- NOTE | 2022-09-03 12:16 | P.PN ---
Subjective This is a 87-year-old morbidly, obese, female, well known to me. She has multiple medical problems including a chronic renal failure, chronic systolic congestive heart failure. I last seen her on August 05, 2022 at [facility] on the [place]. She was doing fairly well at that time. She was there for rehabilitation. This was her third [facility] visit in the past Several months.Her only complaint with some constipation. She not stool since August 03. She has been hospitalized in the past year nine times including this current visit.She [place] [facility] [place]. On August 08, 2022 she presented the emergency room via EMS. Her indicates that she went to the bathroom, and, he had found her slumped over in her wheelchair, blue in the face and not breathing well. He had tried to feed her and given her some insulin. SheHer only complaint with some constipation. After patients admission, just after midnight and 18 was called on her and she is going to be attending hypotensive. Choose placement of any mask and BiPAP. Eventually she required intubation. And her about August 11. She's currently in abated and sedated.How to raise tachycardic blood pressure is stable with pressers.She is on aAnidulafungin For positive sputum and blood cultures of yeast. She remains on sodium chloride and potassium chloride IV and is now on tube feeds at 10 ml/hr. Labs for today show a leukocytosis at 16.2 with a left shift 13.9 neutrophils hemoglobin is 7.7. ABGs from this morning show page 7.32 PCO2 of 39 PO and HCO3 a 20.Chemistry is show the normal electrolytes decrease carbon dioxide and 19 GFR is 26. Calcium 6.4. She is receiving a amino acids and D5 through the IV. She has Dulcolax per rectum ordered. She has sheathing calcium gluconate. She remains Zerbaxa for antibiotic coverage.She is receiving Lovenox for anticoagulation and DVT prophylaxis, Levemir insulin along with scale, Levophed for blood pressure control, potassium chloride for hypokalemia. She's being followed by critical care, Nephrology,surgery, Infectious disease and cardiology August 16 2022: She remains intubated in the intensive care unit. Sedation has been discontinued. She remains on pressors of Levophed. The dose of this is been decreased. She did not tolerate tube feeds. Heart rate remains elevated. She is in atrial fibrillation. She is on potassium replacement protocol. Calcium gluconate, amiodarone drip, need to left fungated antifungal medication, ceftolazone/tazobactam for antibiotic coverage for suspected UTI and sepsis, Reglan for her constipation, insulin for her diabetes, Elequis for anticoagulation. Laboratory studies show a leukocytosis at 20.2 with hemoglobin of 70 absolute neutrophils 17.5. ABGs show pH 7.36 PCO2 39 PO2 107. Chemistries slightly altered, GFR is improved, CRP and pro calcitonin elevated. Repeat blood cultures have been negative. She remains on MiraLAX, lactulose and Reglan per critical care for the constipation issues. Calcitonin is improved. Glucose remains well controlled. Critical care planning gradually reducing her pressors as needed. Etiologies following for her A. fib with RVR. He continues to have volvulus. 08/17/2022: Patient remains intubated in the intensive care unit. He remains on norepinephrine and vasopressin for hypotension. Sedation used propofol but will be discontinued soon for a trial ventilator on standby. I discussed her case personally with the wire fence builder. She remains on Levemir insulin 10 units and NovoLog scale every 6 hours. Staff reports increased sugars recently. She continues on naproxen than for anticoagulation, amiodarone for atrial fibrillation with RVR, budesonide for her COPD, Eraxis for candidal infection and Zybrexa for anti-biotic coverage for UTI. Her main some potassium protocol. She is on lactulose and Reglan to help with her obstipation. She is receiving TPN for nutrition. I remains tachycardic, rest her rate somewhat elevated. Blood pressure remained stable. WB Nayla is slightly improved from yesterday, hemoglobin is slightly down from yesterday. Blood gases chemistries reviewed. She remains hypokalemic. Kidney function continues to improve very slowly. Glucose was 260 this morning. Calcium and protein albumin remained low. Her 13 blood cultures remain negative. Her condition is critical care cardiology reviewed. Chest x-ray shows no nipple can't change. 08/18 2022: Patient remains intubated in the intensive care unit. Sedation has been off, but there's been no significant wakefulness noted. Vital signs show she remains tachycardic in the 130s. Respiratory rate is 30 and mechanically ventilated, blood pressure remains low normal with pressers of vasopressin and levo fed. FiO2 is 40 Labs show to be discussed 16 5 hemoglobin 7 hematocrit 23.9 platelets are 301. Arterial line gases show pH 7.35 PCO2 40 and PO2 of 89. Chemistry shows sodium 148 potassium 3.0 chloride 119 CO2 23 BUN 58 crit and 1.26. Critical care, nephrology notes were reviewed. 08/19/2022: Patient remains in abated intensive care unit. She's been off sedation 48 hours but is not responding to family and only has reflexes noted. Remains mechanically ventilated. Staff reports large stools now and the need for fecal management system. He is now febrile at 101.4 axillary. Heart rate remains tachycardic in atrial fibrillation. Pulse oximetry is 92% on 40% FiO2. Labs today showed a B scan in 19 9, hemoglobin is 6.9, platelets 280. Blood gases are reviewed. Minimally hyponatremic and hypokalemic. BUN is 56, creatinine 1.1 on, GFR now 46. The kidney function continues to improve. They have packed red blood cells been ordered and pending. Consult recommendations were reviewed. She remains on the plan per critical care. 08/20/2022: Patient remains intubated in the intensive care unit. She remains off sedation. She is still unresponsive. She continues to be mechanically v entilated. She has been febrile for the past 24 hours with MAXIMUM TEMPERATURE of 103F. She reports increased use of pressors to control blood pressure. WBC count is increased in 26 6. Hemoglobin is 8.7. She received 1 unit of packed red blood cells yesterday. Blood gases are slightly worsened as is her kidney function today. Neurology was consulted and see the patient. Notes reviewed from critical care and surgery and cardiology. Patient remains on amiodarone, Elequis for atrial fibrillation. She remains on Z-Kimo, Eraxis now vancomycin for sepsis. 2. Has been stopped. She remains on NovoLog scale and detemir insulin area and her son and were at bedside. Case was discussed with him as well. PER INDUSTRIAL HIRE SALES ASSISTANT VERONA BARBA and DR PARIKH below 08/21/2022 remains vent dependent, FiO2 50%/+5 of PEEP. Maintained on high doses of levophed, vasopressin. Amiodarone and bicarb drips continue. Receiving IV albumin to be followed by Lasix. Worsening renal function. Staff reports no urine output 24 hours. Bicarb 16, BUN 76, creatinine 1.73. Repeat CT of abdomen and pelvis completed yesterday, reporting moderate volume pneumoperitoneum, suspected perforation of distal colonic bowel, extensive distal bowel pneumatosis. Surgery discussed findings with family, high risk for surgical intervention. Family decided against surgical intervention,but to continue with nonsurgical care. T-max 100.6. Maintained on Zerbaxa, Eraxis,daptomycin .Seizure-like activity reported yesterday afternoon, placed on Keppra, reoccurred in the early childhood educator aide hours 2. Brain CT reported no acute intracranial process .EEG completed, results pending. 08/22/2022 vent dependent, 40% FiO2, +5 of PEEP. Staff reports patient desats quickly with turning. Chest x-ray reporting bibasilar atelectasis, consolidation, minimally increased, possible tiny right basilar pleural effusion. Continues on high doses of pressors, digits dusky. Maintained on bicarb drip. Telemetry atrial fibrillation, fast ventricular rate on amiodarone drip. Remains on antibiotics as per infectious disease.BUN 83, creatinine 1.79. T-max 102, WBC decreased, 16.5 08/23/2022 FiO2 50%/+5 of PEEP. Chest x-ray reported no significant change .Continues on pressor support. Maintained on amiodarone drip, heart rates c urrently in the 1 teens to 120s. Continues on daptomycin, Zerbexa and Eraxis.T- max 100.9, WBC 15.3. BUN 83, creatinine 2.13. WBC decreased to 15.3. Receiving IV albumin, Albumin currently 1.6. Ionized calcium 3.4, receiving supplementation. 08/24/2022 continues in A. fib, heart rates 110 to 130s on amiodarone drip. Seizure activity yesterday reported with facial twitching lasting approximately half an hour EEG performed-reported abnormal 2-1/2 hour EEG suggesting epileptiform focus involving midline occipital parietal region. Vimpat and Keppra doses increased. Continue to have seizure activity today, right-sided face twitching, trembling of arm reported, repeat EEG in progress. Versed drip initiated. Brain Ct pending. Maximized on both norepi and vasopressin. Digits dusky, declining comfort care at this time. Continues on bicarb drip. Remains vent dependent on FiO2 50%/+5 of PEEP. Now trach and PEG are being considered. 08/25/2022 maximized on pressors, levophed and vasopressin. Mechanical ventilator-dependent, FiO2 50%/+5 of PEEP. Chest x-ray reporting worsening bibasilar consolidation ,bilateral pneumonia. Family meeting via phone this morning with Dr. Hartman PCP, regarding poor prognosis, futile condition. Scheduled for tracheostomy and PEG-consent pending. Continues on amiodarone, bicarb drips. TPN. Continues to have seizure activity, on Versed drip, Dilantin added to med regimen. Afebrile, worsening WBC, 21.7, potassium 3, receiving supplementation. BUN 79, creatinine 1.87. Ionized calcium 3.4, supplemented. 08/28/2022 Remains vent dependent, FiO2 45%/+10 of PEEP status post tracheostomy 08/25. Nebulized bronchodilators, IV steroids. Receiving TPN/lipids. Requiring insulin drip for hyperglycemia, blood sugars currently ranging 160s to 170s.Ongoing seizures, continues on Versed drip, Dilantin, Keppra, Vimpat. EEG repeated yesterday, reported severely abnormal, suppression worsening-seen with severe anoxic or toxic metabolic encephalopathy, nonconvulsive generalized status epilepticus cannot be ruled out. Maintained on vasopressin, Levophed and Lasix drips. Antibiotics as per infectious disease. Afebrile, WBC 22.4. 08/29/2022 remains vent dependent, FiO2 45%/+10 of PEEP. Chest x-ray reporting bilateral infiltrates and pleural effusion, pneumonia versus CHF. PEG tube unable to be placed, please refer to the surgeon's note.Maintained on vasopressin, Levophed Lasix, Versed and Ativan drips. Repeat EEG pending. Co ntinues on antibiotics of Eraxis, Zyvox and Zerbaxa. Afebrile, WBC 22.6. Hemoglobin 6.5, receiving one unit of packed RBCs. Platelets 255. 08/30/2022 remains vent dependent, FiO2 45%/+10 of PEEP. Chest x-ray reporting stable bilateral infiltrates and pleural effusion. Continues on TPN, Lasix drip, norepinephrine, vasopressin. Maintained on Eraxis, Zyvox and Zerbaxa. Afebrile, WBC 20.7. Ammonia 50.EEG yesterday -refer to neurology report.Versed and Ativan drips turned off, 2 hour EEG recently started. Received one unit of packed RBCs yesterday with current hemoglobin 8.1, platelets 221. Sodium decreased to 126. Bicarb 21, BUN 81, creatinine 1.62. Albumin 1.6. Nephrology discussing renal replacement therapy secondary to fluid volume overload if family continues with aggressive therapy. 08/31/22 continues on vasopressor support, antifungal/antibiotics, oral antiarrhythmics, TPN, IV steroids, nebulized bronchodilators, IV diuretics, seizure management including Versed and Ativan drips,lactulose, mechanical ventilation with FiO2 45% status post 10 of PEEP. Chest x-ray reporting potentially developing mild pulmonary vascular congestion, ongoing right greater than left bibasilar consolidation/atelectasis and small effusions. Maintained on Lasix drip, severe volume overload. Nephrology discussing potential SLED as requesting to continue with current aggressive treatment at this time. 09/01/2022 Tube feeds stopped as patient developed high residuals during the night, maintained on TPN. No clinical seizure activity reported. Neurology workup continues, EEG recently repeated, results pending. Remains vent dependent, FiO2 40%/+10 of PEEP, pressor dependent and on IV Lasix. BUN 86, creatinine 1.65. Continues on antibiotics/antifungal. Afebrile. Family undecided regarding SLED/renal replacement treatment option discussed as per nephrology. per DR Dobbs 09/02/2022: Patient remains with trach tube in place. There were never able to get a PEG tube. She remains off sedation since August 30. There's been no evidence of significant brain activity. EEG showed ongoing epileptiform activity. There is corneal reflexes per nursing. Her digits all remains cyanotic. Vent settings remain the same FiO2 40%, PEEP of 10. Heart rate ranges 90-100, respiratory rate is mechanically controlled, blood pressure stable this time. She continues on Zerbaxa, Eraxis, and Zyvox for antibiotic coverage. He remains on IV Lasix drip for significant edema. He continues on TPN and she was unable to tolerate NG tube feeds, she remains on detemir insulin 15 units daily along with insulin scale and she continues on Dilantin IV piggyback. She is a fecal management system and Hylton catheter in place. Critical care neurology and general surgery notes reviewed today. She has multiple ongoing medical problems and daily Coumadin anoxic encephalopathy probable viscus with pneumoperitoneum acute on chronic kidney disease, chronic hypoxic breast heart failure acute on chronic diastolic heart failure diabetes. The patient has been intubated since 08/10/2022 and has a trach since 08/25/2022 09/03/2022: Patient remains clinically ventilated through her tracheostomy. Once again PEG tube feelings have failed . she continues to be followed by critical care neurology, nephrology, infectious disease, general surgery No significant change her statusr in the past 24 hours Objective - Vital Signs Vital signs: Vital Signs Temp 97.6 F 09/03/22 08:00 Pulse 97 09/03/22 11:48 Resp 30 H 09/03/22 11:00 BP 128/47 09/02/22 15:00 Pulse Ox 100 09/03/22 11:00 FiO2 40 09/03/22 11:21 Intake & Output 09/02/22 09/03/22 09/03/22 18:59 06:59 18:59 Intake Total 2796.580 1336.5 1041.583 Output Total 1805 3450 1325 Balance 991.580 -2113.5 -283.417 Weight 141.1 kg 141.2 kg Intake: IV 416 466 325 0.9% @ KVO 180 180 60 Anidulafungin 100 mg In 100 Sodium Chloride 0.9% 100 ml @ 84 mls/hr IVPB DAILY [facility] Rx#:[id number] Ceftolozane/Tazobactam 0. 100 75 gm In Sodium Chloride 0.9% 100 ml @ 100 mls/hr IV Q8HR [facility] Rx#:[id number] Lacosamide IV 150 mg In 50 Sodium Chloride 0.9% 50 ml @ 100 mls/hr IVPB BID [facility] Rx#:[id number] Linezolid 600 mg In 150 Dextrose/Water 1 300ml. bag @ 150 mls/hr IVPB Q12H [facility] Rx#:[id number] Normal Saline: Pressure 36 36 15 Bag Phenytoin Sodium Inj 300 50 50 mg In Sodium Chloride 0.9 % 50 ml @ 80 mls/hr IVPB Q12H [facility] Rx#:[id number] levETIRAcetam IV 1,000 mg 100 100 In Saline 1 100ml.bag @ 400 mls/hr IVPB Q12HR [facility] Rx#:[id number] Intake, IV Titration 1610.580 90.5 391.583 Amount Furosemide 100 mg In 191 90.5 63.833 Sodium Chloride 0.9% 90 ml @ 10 MG/HR 10 mls/hr IV .Q10H [facility] Rx#: [id number] Norepinephrine 32 mg In 189.720 195.150 Sodium Chloride 0.9% 218 ml @ 0.5 MCG/KG/MIN 25. 547 mls/hr IV .Q9H48M [facility] Rx#:[id number] Sodium Acetate 50 meq 1084 Potassium Chloride 40 meq Magnesium Sulfate gm 0. 75 gm Calcium Gluconate 3 gm Sodium Chloride 4Meq/ ml Vial 30 meq In Amino Acids 5 %/Dextrose 20 % 1 ,000 ml @ 65 mls/hr IV . BY DURATION [facility] Rx#: [id number] Vasopressin 60 unit In 145.86 132.6 Sodium Chloride 0.9% 150 ml @ 0.04 UNITS/MIN 6.12 mls/hr IV .Q24H [facility] Rx#: [id number] Tube Feeding 25 TPN/PPN 715 780 325 TPN 715 780 325 Other 30 Output: Gastric Drainage 250 50 Urine 1805 2450 1275 Stool 500 Other 250 Other: Voiding Method Indwelling Catheter Indwelling Catheter Indwelling Catheter ABP, PAP, CO, CI - Last Documented Arterial Blood Pressure 133/55 - Exam General: Patient is intubated in ICU, patient is not arousable. No sedation currently running Neck: [No adenopathy.] Cardiac: [Heart regularly irregular, tachycardic. S1/S2 were equal, there is a 1/6 systolic murmur at the right, and left sternal border Lungs: Diminished breath sounds bilaterally scattered rhonchi noted mechanically ventilated Abdomen: Somewhat distended due to her fecal retention. No organomegaly. Bowel sounds presnt and hypoactive in all 4 quadrants. This patient is morbidly obese, mild distention Extremes: Bilateral lower extremity and upper extremity edema is quite significant.. Offloading waffle boots are in place. There is significant cyanosis to the tips of all digits. Skin: Multiple small wounds have bordered foam dressings in place. Neurologic: Patient is on a ventilatory support, has reflexes as indicated by the nursing staff. No response to stimuli including sternal rub Lymphatic: [No adenopathy.] - Labs CBC & Chem 7: 09/03/22 05:34 09/03/22 05:34 Labs: Abnormal Lab Results - Last 24 Hours (Table) 09/02/22 09/02/22 09/02/22 Range/Units 13:18 16:41 19:47 WBC (3.8-10.6) k/uL RBC (3.80-5.40) m/uL Hgb (11.4-16.0) gm/dL Hct (34.0-46.0) % RDW (11.5-15.5) % Plt Count (150-450) k/uL ABG pH (7.35-7.45) ABG pCO2 (35-45) mmHg ABG HCO3 (21-25) mmol/L ABG Total CO2 (19-24) mmol/L Sodium (137-145) mmol/L Chloride (98-107) mmol/L BUN (7-17) mg/dL Creatinine (0.52-1.04) mg/dL Glucose (74-99) mg/dL POC Glucose (mg/dL) 116 H 166 H 158 H (70-110) mg/dL Calcium (8.4-10.2) mg/dL 09/03/22 09/03/22 09/03/22 Range/Units 00:45 04:00 05:31 WBC (3.8-10.6) k/uL RBC (3.80-5.40) m/uL Hgb (11.4-16.0) gm/dL Hct (34.0-46.0) % RDW (11.5-15.5) % Plt Count (150-450) k/uL ABG pH (7.35-7.45) ABG pCO2 (35-45) mmHg ABG HCO3 (21-25) mmol/L ABG Total CO2 (19-24) mmol/L Sodium (137-145) mmol/L Chloride (98-107) mmol/L BUN (7-17) mg/dL Creatinine (0.52-1.04) mg/dL Glucose (74-99) mg/dL POC Glucose (mg/dL) 172 H 162 H 158 H (70-110) mg/dL Calcium (8.4-10.2) mg/dL 09/03/22 09/03/22 09/03/22 Range/Units 05:34 05:34 06:39 WBC 17.2 H (3.8-10.6) k/uL RBC 3.14 L (3.80-5.40) m/uL Hgb 8.7 L (11.4-16.0) gm/dL Hct 27.8 L (34.0-46.0) % RDW 20.5 H (11.5-15.5) % Plt Count 141 L (150-450) k/uL ABG pH 7.33 L (7.35-7.45) ABG pCO2 49 H (35-45) mmHg ABG HCO3 26 H (21-25) mmol/L ABG Total CO2 27 H (19-24) mmol/L Sodium 129 L (137-145) mmol/L Chloride 94 L (98-107) mmol/L BUN 89 H (7-17) mg/dL Creatinine 1.35 H (0.52-1.04) mg/dL Glucose 132 H (74-99) mg/dL POC Glucose (mg/dL) (70-110) mg/dL Calcium 8.1 L (8.4-10.2) mg/dL Microbiology - Last 24 Hours (Table) 08/29/22 13:29 Blood Culture - Preliminary Blood No Growth after 96 hours Assessment and Plan (1) Encephalopathy acute Current Visit: Yes Status: Acute Code(s): G93.40 - ENCEPHALOPATHY, UNSPECIFIED SNOMED Code(s): 90976492 (2) Sepsis Current Visit: Yes Status: Acute Code(s): A41.9 - SEPSIS, UNSPECIFIED ORGANISM SNOMED Code(s): 82698943 (3) Acute on chronic diastolic (congestive) heart failure Current Visit: No Status: Acute Code(s): I50.33 - ACUTE ON CHRONIC DIASTOLIC (CONGESTIVE) HEART FAILURE SNOMED Code(s): 160626232 (4) Hypokalemia Current Visit: Yes Status: Acute Code(s): E87.6 - HYPOKALEMIA SNOMED Code(s): 88361352 (5) Hypocalcemia Current Visit: Yes Status: Acute Code(s): E83.51 - HYPOCALCEMIA SNOMED Code(s): 4641100 (6) Acute exacerbation of chronic obstructive pulmonary disease Current Visit: Yes Status: Acute Code(s): J44.1 - CHRONIC OBSTRUCTIVE PULMONARY DISEASE W (ACUTE) EXACERBATION SNOMED Code(s): 635537874 (7) Pneumonia Current Visit: Yes Status: Acute Code(s): J18.9 - PNEUMONIA, UNSPECIFIED ORGANISM SNOMED Code(s): 592516749 (8) Acute on chronic renal failure Current Visit: No Status: Acute Code(s): N17.9 - ACUTE KIDNEY FAILURE, UNSPECIFIED; N18.9 - CHRONIC KIDNEY DISEASE, UNSPECIFIED SNOMED Code(s): 244601218 (9) Altered mental status Current Visit: No Status: Acute Code(s): R41.82 - ALTERED MENTAL STATUS, UNSPECIFIED SNOMED Code(s): 588178952 (10) CAD (coronary atherosclerotic disease) Current Visit: No Status: Acute Code(s): I25.10 - ATHSCL HEART DISEASE OF [place] CORONARY ARTERY W/O ANG PCTRS SNOMED Code(s): 517440164 (11) Hypertension Current Visit: No Status: Acute Code(s): I10 - ESSENTIAL (PRIMARY) HYPERTENS ION SNOMED Code(s): 02962275 (12) Hypoxia Current Visit: No Status: Acute Code(s): R09.02 - HYPOXEMIA SNOMED Code(s): 057928001 (13) Leukocytosis Current Visit: No Status: Acute Code(s): D72.829 - ELEVATED WHITE BLOOD CELL COUNT, UNSPECIFIED SNOMED Code(s): 065833018 (14) ferry terminal supervisor prescription opiate use Current Visit: No Status: Acute Code(s): Z79.891 - VENDER (CURRENT) USE OF OPIATE ANALGESIC SNOMED Code(s): 854267907 (15) Type 2 diabetes mellitus without complications Current Visit: No Status: Acute Code(s): E11.9 - TYPE 2 DIABETES MELLITUS WITHOUT COMPLICATIONS SNOMED Code(s): 425350915 (16) UTI (urinary tract infection) Current Visit: No Status: Acute Code(s): N39.0 - URINARY TRACT INFECTION, SITE NOT SPECIFIED SNOMED Code(s): 57186031 (17) Urinary retention Current Visit: No Status: Acute Code(s): R33.9 - RETENTION OF URINE, UNSPECIFIED SNOMED Code(s): 105949881 (18) Status post tracheostomy Current Visit: Yes Status: Acute Code(s): Z93.0 - TRACHEOSTOMY STATUS SNOMED Code(s): 443765453 (19) Septic shock Current Visit: No Status: Acute Code(s): A41.9 - SEPSIS, UNSPECIFIED ORGANISM; R65.21 - SEVERE SEPSIS WITH SEPTIC SHOCK SNOMED Code(s): 30791117 (20) Severe sepsis with acute organ dysfunction due to Gram negative bacteria Current Visit: No Status: Acute Code(s): A41.50 - GRAM-NEGATIVE SEPSIS, UNSPECIFIED; R65.20 - SEVERE SEPSIS WITHOUT SEPTIC SHOCK SNOMED Code(s): 142150088 Plan: I will standby for further recommendations from neurology, critical care, infectious disease, Nephrology, general surgery, cardiology, repeat labs in a.m., I spent 25 minutes with her in the ICU waiting room., CT of the brain are pending at this time. She remains gravely ill. Family medicine well reevaluate next 24 hours.
[2022-09-03 12:53] LABS: Glucose,Whole Blood 111 mg/dL (70-110)
--- NOTE | 2022-09-03 14:36 | P.PN ---
Subjective Progress Note Date: 09/03/22 Follow-up for acute kidney injury. Urine output of 5 L in the last 24 hours. Objective - Vital Signs Vital signs: Vital Signs Temp 97.2 F L 09/03/22 12:00 Pulse 100 09/03/22 14:00 Resp 30 H 09/03/22 14:00 BP 128/47 09/02/22 15:00 Pulse Ox 100 09/03/22 14:00 FiO2 40 09/03/22 12:00 Intake & Output 09/02/22 09/03/22 09/03/22 18:59 06:59 18:59 Intake Total 2796.580 1336.5 1340.583 Output Total 1805 3450 2025 Balance 991.580 -2113.5 -684.417 Weight 141.1 kg 141.2 kg Intake: IV 416 466 429 0.9% @ KVO 180 180 105 Anidulafungin 100 mg In 100 Sodium Chloride 0.9% 100 ml @ 84 mls/hr IVPB DAILY [facility] Rx#:[id number] Ceftolozane/Tazobactam 0. 100 75 gm In Sodium Chloride 0.9% 100 ml @ 100 mls/hr IV Q8HR [facility] Rx#:[id number] Lacosamide IV 150 mg In 50 Sodium Chloride 0.9% 50 ml @ 100 mls/hr IVPB BID [facility] Rx#:[id number] Linezolid 600 mg In 150 Dextrose/Water 1 300ml. bag @ 150 mls/hr IVPB Q12H [facility] Rx#:[id number] Normal Saline: Pressure 36 36 24 Bag Phenytoin Sodium Inj 300 50 50 50 mg In Sodium Chloride 0.9 % 50 ml @ 80 mls/hr IVPB Q12H [facility] Rx#:[id number] levETIRAcetam IV 1,000 mg 100 100 In Saline 1 100ml.bag @ 400 mls/hr IVPB Q12HR [facility] Rx#:[id number] Intake, IV Titration 1610.580 90.5 391.583 Amount Furosemide 100 mg In 191 90.5 63.833 Sodium Chloride 0.9% 90 ml @ 10 MG/HR 10 mls/hr IV .Q10H [facility] Rx#: [id number] Norepinephrine 32 mg In 189.720 195.150 Sodium Chloride 0.9% 218 ml @ 0.5 MCG/KG/MIN 25. 547 mls/hr IV .Q9H48M [facility] Rx#:[id number] Sodium Acetate 50 meq 1084 Potassium Chloride 40 meq Magnesium Sulfate gm 0. 75 gm Calcium Gluconate 3 gm Sodium Chloride 4Meq/ ml Vial 30 meq In Amino Acids 5 %/Dextrose 20 % 1 ,000 ml @ 65 mls/hr IV . BY DURATION [facility] Rx#: [id number] Vasopressin 60 unit In 145.86 132.6 Sodium Chloride 0.9% 150 ml @ 0.04 UNITS/MIN 6.12 mls/hr IV .Q24H [facility] Rx#: [id number] Tube Feeding 25 TPN/PPN 715 780 520 TPN 715 780 520 Other 30 Output: Gastric Drainage 250 50 Urine 1805 2450 1975 Stool 500 Other 250 Other: Voiding Method Indwelling Catheter Indwelling Catheter Indwelling Catheter ABP, PAP, CO, CI - Last Documented Arterial Blood Pressure 132/57 - Exam No acute distress S1-S2 heard Lungs clear Abdomen soft Edema - Labs CBC & Chem 7: 09/03/22 05:34 09/03/22 12:52 Labs: Abnormal Lab Results - Last 24 Hours (Table) 09/02/22 09/02/22 09/03/22 Range/Units 16:41 19:47 00:45 WBC (3.8-10.6) k/uL RBC (3.80-5.40) m/uL Hgb (11.4-16.0) gm/dL Hct (34.0-46.0) % RDW (11.5-15.5) % Plt Count (150-450) k/uL ABG pH (7.35-7.45) ABG pCO2 (35-45) mmHg ABG HCO3 (21-25) mmol/L ABG Total CO2 (19-24) mmol/L Sodium (137-145) mmol/L Chloride (98-107) mmol/L BUN (7-17) mg/dL Creatinine (0.52-1.04) mg/dL Glucose (74-99) mg/dL POC Glucose (mg/dL) 166 H 158 H 172 H (70-110) mg/dL Calcium (8.4-10.2) mg/dL 09/03/22 09/03/22 09/03/22 Range/Units 04:00 05:31 05:34 WBC (3.8-10.6) k/uL RBC (3.80-5.40) m/uL Hgb (11.4-16.0) gm/dL Hct (34.0-46.0) % RDW (11.5-15.5) % Plt Count (150-450) k/uL ABG pH (7.35-7.45) ABG pCO2 (35-45) mmHg ABG HCO3 (21-25) mmol/L ABG Total CO2 (19-24) mmol/L Sodium 129 L (137-145) mmol/L Chloride 94 L (98-107) mmol/L BUN 89 H (7-17) mg/dL Creatinine 1.35 H (0.52-1.04) mg/dL Glucose 132 H (74-99) mg/dL POC Glucose (mg/dL) 162 H 158 H (70-110) mg/dL Calcium 8.1 L (8.4-10.2) mg/dL 09/03/22 09/03/22 09/03/22 Range/Units 05:34 06:39 12:52 WBC 17.2 H (3.8-10.6) k/uL RBC 3.14 L (3.80-5.40) m/uL Hgb 8.7 L (11.4-16.0) gm/dL Hct 27.8 L (34.0-46.0) % RDW 20.5 H (11.5-15.5) % Plt Count 141 L (150-450) k/uL ABG pH 7.33 L (7.35-7.45) ABG pCO2 49 H (35-45) mmHg ABG HCO3 26 H (21-25) mmol/L ABG Total CO2 27 H (19-24) mmol/L Sodium (137-145) mmol/L Chloride (98-107) mmol/L BUN (7-17) mg/dL Creatinine (0.52-1.04) mg/dL Glucose (74-99) mg/dL POC Glucose (mg/dL) 111 H (70-110) mg/dL Calcium (8.4-10.2) mg/dL Microbiology - Last 24 Hours (Table) 08/29/22 13:29 Blood Culture - Preliminary Blood No Growth after 96 hours Assessment and Plan Assessment: #1 acute kidney injury secondary to septic ATN. -Baseline creatinine 0.8 MG per DL from June 2022 -Urinalysis 1+ protein, hematuria with 1 RBC #2 septic shock secondary to complicated UTI/bacteremia #3 metabolic alkalosis from diuretics #4 volume overload #5 septic shock on pressors #6 A. fib with RVR Plan: #1 renal function stable and improving. #2 continue with Lasix drip at 10 mg an hour. #3 daily renal labs #4 avoid nephrotoxic agents and hypotensive episodes
--- NOTE | 2022-09-03 17:04 | CT ---
EXAMINATION TYPE: CT brain wo con DATE OF EXAM: 09/03/2022 COMPARISON: 08/24/2022 HISTORY: Pt has been off sedation x4days and pt still hasn't woken up. CT DLP: 1147.4 mGycm Automated exposure control for dose reduction was used. Images obtained of the brain with no contrast. There is mild cerebral atrophy. There is no mass effect or midline shift. No sign of intracranial hem orrhage. The calvarium is intact. There is fluid level in the maxillary sinuses. 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 IMPRESSION: Cerebral atrophy. No acute intracranial abnormality. No change.
[2022-09-03 17:28] LABS: Glucose,Whole Blood 97 mg/dL (70-110)
[2022-09-03 21:11] LABS: Glucose,Whole Blood 193 mg/dL (70-110)
[2022-09-03] MEDS: INSULIN DETEMIR (LEVEMIR) 100 UNIT/ML SYR SQ SCH (21:15)
--- NOTE | 2022-09-03 21:24 | P.PN ---
Subjective Progress Note Date: 09/03/22 Principal diagnosis: Sepsis/septic shock Patient is a 87-year-old female with multiple comorbidities presented to the hospital with a syncopal episode weakness subsequently hypotension, sepsis requiring transfer to the ICU and intubation on the vent. She patient did have a CT of abdominal pelvis completed on 08/20/2022 with evidence of pneumoperitoneum Gen. surgery discussed with the family currently being treated medically On today's evaluation that is 09/03/2022, the patient remains to be afebrile, the patient continues to be on pressor support to maintain her blood pressure however is requiring slightly lower amount compared to yesterday per the nursing staff, the patient FiO2 is down to 40 %, no purulent secretions through the ET , patient did have NG to suction, tube feeds has been put on hold as the patient was not tolerating them with high residual, patient did have a fecal management system for her diarrhea Objective - Vital Signs Vital signs: Vital Signs Temp 97.6 F 09/03/22 08:00 Pulse 100 09/03/22 08:34 Resp 31 H 09/03/22 08:00 BP 128/47 09/02/22 15:00 Pulse Ox 100 09/03/22 08:00 FiO2 40 09/03/22 08:14 Intake & Output 09/02/22 09/03/22 09/03/22 18:59 06:59 18:59 Intake Total 2796.580 1336.5 520.369 Output Total 1805 3450 405 Balance 991.580 -2113.5 115.369 Weight 141.1 kg 141.2 kg Intake: IV 416 466 36 0.9% @ KVO 180 180 30 Ceftolozane/Tazobactam 0. 100 75 gm In Sodium Chloride 0.9% 100 ml @ 100 mls/hr IV Q8HR [facility] Rx#:[id number] Linezolid 600 mg In 150 Dextrose/Water 1 300ml. bag @ 150 mls/hr IVPB Q12H [facility] Rx#:[id number] Normal Saline: Pressure 36 36 6 Bag Phenytoin Sodium Inj 300 50 50 mg In Sodium Chloride 0.9 % 50 ml @ 80 mls/hr IVPB Q12H [facility] Rx#:[id number] levETIRAcetam IV 1,000 mg 100 In Saline 1 100ml.bag @ 400 mls/hr IVPB Q12HR [facility] Rx#:[id number] Intake, IV Titration 1610.580 90.5 354.369 Amount Furosemide 100 mg In 191 90.5 63.833 Sodium Chloride 0.9% 90 ml @ 10 MG/HR 10 mls/hr IV .Q10H [facility] Rx#: [id number] Norepinephrine 32 mg In 189.720 157.936 Sodium Chloride 0.9% 218 ml @ 0.5 MCG/KG/MIN 25. 547 mls/hr IV .Q9H48M [facility] Rx#:[id number] Sodium Acetate 50 meq 1084 Potassium Chloride 40 meq Magnesium Sulfate gm 0. 75 gm Calcium Gluconate 3 gm Sodium Chloride 4Meq/ ml Vial 30 meq In Amino Acids 5 %/Dextrose 20 % 1 ,000 ml @ 65 mls/hr IV . BY DURATION [facility] Rx#: [id number] Vasopressin 60 unit In 145.86 132.6 Sodium Chloride 0.9% 150 ml @ 0.04 UNITS/MIN 6.12 mls/hr IV .Q24H [facility] Rx#: [id number] Tube Feeding 25 TPN/PPN 715 780 130 TPN 715 780 130 Other 30 Output: Gastric Drainage 250 50 Urine 1805 2450 355 Stool 500 Other 250 Other: Voiding Method Indwelling Catheter Indwelling Catheter Indwelling Catheter ABP, PAP, CO, CI - Last Documented Arterial Blood Pressure 130/52 - Exam GENERAL DESCRIPTION: An elderly female intubated on the vent RESPIRATORY SYSTEM: Unlabored breathing , decreased breath sounds at bases HEART: S1 S2 regular rate and rhythm , ABDOMEN: Soft , abdominal distention EXTREMITIES: Diffuse swelling bilateral lower extremity no redness - Labs CBC & Chem 7: 09/03/22 05:34 09/03/22 12:52 Labs: Abnormal Lab Results - Last 24 Hours (Table) 09/02/22 09/02/22 09/02/22 Range/Units 13:18 16:41 19:47 WBC (3.8-10.6) k/uL RBC (3.80-5.40) m/uL Hgb (11.4-16.0) gm/dL Hct (34.0-46.0) % RDW (11.5-15.5) % Plt Count (150-450) k/uL ABG pH (7.35-7.45) ABG pCO2 (35-45) mmHg ABG HCO3 (21-25) mmol/L ABG Total CO2 (19-24) mmol/L Sodium (137-145) mmol/L Chloride (98-107) mmol/L BUN (7-17) mg/dL Creatinine (0.52-1.04) mg/dL Glucose (74-99) mg/dL POC Glucose (mg/dL) 116 H 166 H 158 H (70-110) mg/dL Calcium (8.4-10.2) mg/dL 09/03/22 09/03/22 09/03/22 Range/Units 00:45 04:00 05:31 WBC (3.8-10.6) k/uL RBC (3.80-5.40) m/uL Hgb (11.4-16.0) gm/dL Hct (34.0-46.0) % RDW (11.5-15.5) % Plt Count (150-450) k/uL ABG pH (7.35-7.45) ABG pCO2 (35-45) mmHg ABG HCO3 (21-25) mmol/L ABG Total CO2 (19-24) mmol/L Sodium (137-145) mmol/L Chloride (98-107) mmol/L BUN (7-17) mg/dL Creatinine (0.52-1.04) mg/dL Glucose (74-99) mg/dL POC Glucose (mg/dL) 172 H 162 H 158 H (70-110) mg/dL Calcium (8.4-10.2) mg/dL 09/03/22 09/03/22 09/03/22 Range/Units 05:34 05:34 06:39 WBC 17.2 H (3.8-10.6) k/uL RBC 3.14 L (3.80-5.40) m/uL Hgb 8.7 L (11.4-16.0) gm/dL Hct 27.8 L (34.0-46.0) % RDW 20.5 H (11.5-15.5) % Plt Count 141 L (150-450) k/uL ABG pH 7.33 L (7.35-7.45) ABG pCO2 49 H (35-45) mmHg ABG HCO3 26 H (21-25) mmol/L ABG Total CO2 27 H (19-24) mmol/L Sodium 129 L (137-145) mmol/L Chloride 94 L (98-107) mmol/L BUN 89 H (7-17) mg/dL Creatinine 1.35 H (0.52-1.04) mg/dL Glucose 132 H (74-99) mg/dL POC Glucose (mg/dL) (70-110) mg/dL Calcium 8.1 L (8.4-10.2) mg/dL Microbiology - Last 24 Hours (Table) 08/29/22 13:29 Blood Culture - Preliminary Blood No Growth after 96 hours Assessment and Plan (1) Sepsis Current Visit: Yes Status: Acute Code(s): A41.9 - SEPSIS, UNSPECIFIED OR GANISM SNOMED Code(s): 32749752 Plan: 1patient was in the hospital with sepsis and septic shock initially concern for multidrug-resistant Pseudomonas UTI, patient also have a candidemia secondary to possible abdominal source and now with a VRE bacteremia source likely abdominal 2patient did have evidence of colonic perforation and peritonitis being managed medically as the patient considered to be high risk for any surgical procedure 3patient did have persistent VRE bacteremia and could be related to the multiple lines , patient will benefit from removal of those lines to control her bacteremia, patient did have a repeat blood cultures on 08/29/2022 those are negative so far 4-the patient clinical condition remains to be guarded however the patient did have resolution of her fever and repeat blood culture has been negative so far, the patient white count still elevated could be related to steroids, white count is slightly elevated to 17.7 today 5- patient condition remains to be guarded, currently being treated Zyvox Zerbex and Eraxis and monitor clinical course closely, at the bedside questions were answered Time with Patient: Less than 30
[2022-09-04] MEDS: NOREPINEPHRINE 32 MG in SODIUM CHLORIDE 0.9% 218 ML IV SCH ×3 (00:25→16:48)
[2022-09-04] MEDS: PHENYTOIN SODIUM INJ 300 MG in SODIUM CHLORIDE 0.9% 50 ML IVPB SCH ×2 (00:26→13:57)
[2022-09-04] MEDS: CEFTOLOZANE/TAZOBACTAM 0.75 GM in SODIUM CHLORIDE 0.9% 100 ML IV SCH ×3 (00:58→17:57)
[2022-09-04 01:03] LABS: Glucose,Whole Blood 177 mg/dL (70-110)
[2022-09-04] MEDS: INSULIN ASPART (NovoLOG) 100 UNIT/ML VIAL SQ SCH ×6 (01:03→20:53)
[2022-09-04] MEDS: LINEZOLID 600 MG in DEXTROSE/WATER 1 300ML.BAG IVPB SCH ×2 (01:51→13:51)
[2022-09-04] MEDS: MIDAZOLAM HCL 50 MG in SODIUM CHLORIDE 0.9% 40 ML IV SCH ×3 (01:55→17:44)
[2022-09-04] MEDS: 1: MVI, ADULT NO.4 WITH VIT K 10 ML, TRACE (CONC-1ML/DOSE) 1 ML, SODIUM ACETATE 50 MEQ, IV SCH ×32 (04:07→18:00)
[2022-09-04 04:27] LABS: Glucose,Whole Blood 187 mg/dL (70-110)
[2022-09-04 05:01] LABS: Albumin 1.8 g/dL (3.5-5.0); Calcium 8.2 mg/dL (8.4-10.2); Potassium 3.1 mmol/L (3.5-5.1); Total Bilirubin 0.4 mg/dL (0.2-1.3); Total Protein 4.4 g/dL (6.3-8.2)
[2022-09-04 05:09] LABS: Anisocytosis Moderate; HCT 26.9 % (34.0-46.0); HGB 8.4 gm/dL (11.4-16.0); Hypochromasia Slight; MCHC 31.3 g/dL (31.0-37.0); MCV 86.5 fL (80.0-100.0); Mean Platelet Volume 10.7; Platelet Count 104 k/uL (150-450); Poikilocytosis Moderate; RBC 3.11 m/uL (3.80-5.40); RDW 21.6 % (11.5-15.5)
[2022-09-04] MEDS: POTASSIUM CHLORIDE 20 MEQ in WATER FOR INJECTION 1 100ML.BAG IVPB SCH ×3 (05:34→11:31)
[2022-09-04 06:10] LABS: ABG Base Excess 3.1 mmol/L; ABG HCO3 28 mmol/L (21-25); ABG Oxygen Saturation 97.6 % (94-97); ABG PCO2 46 mmHg (35-45); ABG PH 7.39 (7.35-7.45); ABG PO2 133 mmHg (83-108); ABG TCO2 30 mmol/L (19-24); Allen Test Performed? Yes
[2022-09-04 06:10] LABS: Band Neutrophils % 42 %; Lymphocytes # (M) 0.29 k/uL (1.0-4.8); Monocytes # (M) 0.44 k/uL (0-1.0); Neutrophils % (M) 53 %; Nucleated Red Blood Cells 1 /100 WBC (0-0); Total Cells Counted 200
[2022-09-04 06:11] LABS: WBC 14.6 k/uL (3.8-10.6)
[2022-09-04 06:12] LABS: Anisocytosis (M) Present; Poikilocytosis (M) Present; Polychromasia Present
[2022-09-04] MEDS: ANIDULAFUNGIN 100 MG in SODIUM CHLORIDE 0.9% 100 ML IVPB SCH (08:04)
[2022-09-04] MEDS: LACOSAMIDE IV 150 MG in SODIUM CHLORIDE 0.9% 50 ML IVPB SCH ×2 (08:04→20:54)
[2022-09-04] MEDS: levETIRAcetam IV 1,000 MG in SALINE 1 100ML.BAG IVPB SCH ×2 (08:05→20:54)
[2022-09-04] MEDS: LACTULOSE 20 GM/30 ML CUP PO SCH ×2 (08:05→13:51)
[2022-09-04] MEDS: PANTOPRAZOLE 40 MG/10 ML VIAL IVP SCH (08:05)
[2022-09-04] MEDS: AMIODARONE 200 MG TAB PO SCH ×2 (08:05→20:53)
[2022-09-04] MEDS: metOLazone 5 MG TAB PO SCH ×3 (08:06→21:08)
[2022-09-04] MEDS: polyethylene glycoL 3350 17 GM POWD.PACK PO SCH (08:06)
[2022-09-04] MEDS: VASOPRESSIN 60 UNIT in SODIUM CHLORIDE 0.9% 150 ML IV SCH (08:20)
[2022-09-04 08:25] LABS: Glucose,Whole Blood 130 mg/dL (70-110)
[2022-09-04] MEDS: ALBUTEROL NEBULIZED 2.5 MG/3 ML INHALATION SCH ×4 (09:19→20:18)
[2022-09-04] MEDS: IPRATROPIUM 0.5 MG/2.5 ML NEBU INHALATION SCH ×4 (09:19→20:18)
--- NOTE | 2022-09-04 10:13 | P.PN ---
Subjective Progress Note Date: 09/04/22 On today's evaluation of 09/04/2022, seeing the patient for a follow-up. The patient is a very complex case, an 87-year-old female patient remains in septic shock, unresponsive, on a mechanical ventilator, being followed up in the intensive care unit, still seeing several consultants regarding her complex situation. In summary, this patient has been on a mechanical ventilator for septic shock. During her course of her illness, the patient had various infections, as the patient's initial infection was related to Enterococcus faecalis and pseudomonas aeruginosa in her urine and subsequently the patient became septic and grew anaerobic gram-negative bacillus in the blood and this was thought to be related to an ischemic bowel and following that, the patient developed sputum positive for Ange and the blood culture was also positive for Ange albicans on 08/11/2022. Subsequent sputum from 08/19/2022 was positive for MRSA, blood culture was positive for VRE on 08/19/2022 and repeated blood culture from 08/23/2022 was again positive for VRE. The patient is currently on a combination of Zerbaxa , eraxis and Zyvox. This morning, the patient is not receiving any sedation. As mentioned, she is completely unresponsive. she was seen by neurology on multiple occasions. The patient's m ost recent CAT scan of the brain that was done on 09/03/2022 showed evidence of cerebral atrophy without any acute changes. EEG that was done on 09/01/2022 showed evidence of burst suppression discharges suggestive of nonconvulsive status Versus anoxia the brain. There is also background slowing suggestive of severe encephalopathy. The patient does not respond to any verbal. She does not identify any painful stimulation. She has been off sedation for quite some time and I do not to follow this patient back into 2022. She remains on a mechanical ventilator. Noted the patient had received a tracheostomy and currently is on assist-control mode of mechanical ventilation. She is currently on a rate of 30 with a tidal volume of 400 and FiO2 of 40% with a PEEP of 10. Chest x-ray showing dense consolidation of the lung bases bilaterally. Blood gas from today shows a pH of 7.39, pCO2 of 46, pO2 133. Hemodynamically, she is on pressors and the patient is on vasopressin physiologic data that 0.04 units and the patient is also on norepinephrine running at 0.14 mcg/kg/m. She remains on a running at 10 mg an hour. Overall fluid balance is -2.6 L over the past 24 hours and the patient is responding nicely to the diuretics. Note that the most recent blood culture that was done on 08/29/2022 showed no evidence of any microbial growth. There is evidence currently of 14.6 with a hemoglobin of 8.4 and a platelet count of 104. BUN is at 19 with a creatinine of 1.2 and a sodium level is at 129. AST is 46, ALT is 27, alkaline phosphatase 187. Blood sugars at 1:30 from this morning. She still has a triple-lumen catheter in her left subclavian vein. She also has not. Right femoral. Patient is on Levemir insulin 15 units at bedtime in addition to NovoLog based on a sliding scale coverage. Antibiotics will mentioned above. TPN is running at the rate of 65 mL an hour. She is on amiodarone 400 mg by mouth twice a day and her current cardiac rhythm is controlled atrial fibrillation. She is on no anticoagulants for now. In terms of bowel movement activity, the patient is producing large amounts of stool and she has a fecal management system in Place. The patient remains on laxatives. The patient is a combination of MiraLAX and lactulose. Most recent ammonia level is at 20. Objective - Vital Signs Vital signs: Vital Signs Temp 97 F L 09/04/22 04:00 Pulse 92 09/04/22 09:20 Resp 30 H 09/04/22 09:20 BP 128/47 09/02/22 15:00 Pulse Ox 100 09/04/22 09:30 FiO2 40 09/04/22 09:30 Intake & Output 09/03/22 09/04/22 09/04/22 18:59 06:59 18:59 Intake Total 6377.616 6515.413 829.452 Output Total 3025 3050 1855 Balance -1192.534 -1474.587 -1025.548 Weight 130.2 kg Intake: IV 601 601 489 0.9% @ KVO 165 165 30 Anidulafungin 100 mg In 100 100 Sodium Chloride 0.9% 100 ml @ 84 mls/hr IVPB DAILY [facility] Rx#:[id number] Ceftolozane/Tazobactam 0. 100 100 100 75 gm In Sodium Chloride 0.9% 100 ml @ 100 mls/hr IV Q8HR [facility] Rx#:[id number] Lacosamide IV 150 mg In 50 50 50 Sodium Chloride 0.9% 50 ml @ 100 mls/hr IVPB BID [facility] Rx#:[id number] Normal Saline: Pressure 36 36 9 Bag Phenytoin Sodium Inj 300 50 50 mg In Sodium Chloride 0.9 % 50 ml @ 80 mls/hr IVPB Q12H [facility] Rx#:[id number] Potassium Chloride 20 meq 100 In Water For Injection 1 100ml.bag @ 50 mls/hr IVPB Q2H [facility] Rx#: [id number] Potassium Chloride 20 meq 100 In Water For Injection 1 100ml.bag @ 50 mls/hr IVPB Q2H [facility] Rx#: [id number] levETIRAcetam IV 1,000 mg 100 100 100 In Saline 1 100ml.bag @ 400 mls/hr IVPB Q12HR [facility] Rx#:[id number] Intake, IV Titration 451.466 194.413 145.452 Amount Furosemide 100 mg In 63.833 100 Sodium Chloride 0.9% 90 ml @ 10 MG/HR 10 mls/hr IV .Q10H [facility] Rx#: [id number] Norepinephrine 32 mg In 255.033 94.413 Sodium Chloride 0.9% 218 ml @ 0.5 MCG/KG/MIN 25. 547 mls/hr IV .Q9H48M [facility] Rx#:[id number] Vasopressin 60 unit In 132.6 145.452 Sodium Chloride 0.9% 150 ml @ 0.04 UNITS/MIN 6.12 mls/hr IV .Q24H [facility] Rx#: [id number] TPN/PPN 780 780 195 TPN 780 780 195 Output: Gastric Drainage 50 Urine 2975 3050 655 Stool 1200 Other: Voiding Method Indwelling Catheter Indwelling Catheter ABP, PAP, CO, CI - Last Documented Arterial Blood Pressure 114/45 - Exam GENERAL EXAM: Intubated, sedated, 87-year-old morbidly obese female HEAD: Normocephalic. EYES: Sluggish reaction of pupils, equal size. NOSE: Nasogastric tube secured in place. Clear with pink turbinates. THROAT: Oral endotracheal tube in place. NECK: No masses, no JVD. CHEST: No chest wall deformity. LUNGS: Equal air entry with crackles in the bilateral bases. CVS: S1 and S2 normal with no audible murmur, irregular rhythm. ABDOMEN: No hepatosplenomegaly, normal bowel sounds, no guarding or rigidity. SPINE: No scoliosis or deformity SKIN: No rashes CENTRAL NERVOUS SYSTEM: Sedated, tone is normal in all 4 extremities. EXTREMITIES: There is 1-2+ peripheral edema. Changes of chronic venous stasis. No clubbing, no cyanosis. Peripheral pulses are intact. - Labs CBC & Chem 7: 09/04/22 04:25 09/04/22 04:25 Labs: Abnormal Lab Results - Last 24 Hours (Table) 09/03/22 09/03/22 09/04/22 Range/Units 12:52 21:09 01:00 WBC (3.8-10.6) k/uL RBC (3.80-5.40) m/uL Hgb (11.4-16.0) gm/dL Hct (34.0-46.0) % RDW (11.5-15.5) % Plt Count (150-450) k/uL Neutrophils # (Manual) (1.3-7.7) k/uL Lymphocytes # (Manual) (1.0-4.8) k/uL Nucleated RBCs (0-0) /100 WBC ABG pCO2 (35-45) mmHg ABG pO2 (83-108) mmHg ABG HCO3 (21-25) mmol/L ABG Total CO2 (19-24) mmol/L ABG O2 Saturation (94-97) % Sodium (137-145) mmol/L Potassium (3.5-5.1) mmol/L Chloride (98-107) mmol/L BUN (7-17) mg/dL Creatinine (0.52-1.04) mg/dL Glucose (74-99) mg/dL POC Glucose (mg/dL) 111 H 193 H 177 H (70-110) mg/dL Calcium (8.4-10.2) mg/dL AST (14-36) U/L Alkaline Phosphatase (38-126) U/L Total Protein (6.3-8.2) g/dL Albumin (3.5-5.0) g/dL 09/04/22 09/04/22 09/04/22 Range/Units 04: 04:25 04:25 WBC 14.6 H (3.8-10.6) k/uL RBC 3.11 L (3.80-5.40) m/uL Hgb 8.4 L (11.4-16.0) gm/dL Hct 26.9 L (34.0-46.0) % RDW 21.6 H (11.5-15.5) % Plt Count 104 L (150-450) k/uL Neutrophils # (Manual) 13.80 H (1.3-7.7) k/uL Lymphocytes # (Manual) 0.29 L (1.0-4.8) k/uL Nucleated RBCs 1 H (0-0) /100 WBC ABG pCO2 (35-45) mmHg ABG pO2 (83-108) mmHg ABG HCO3 (21-25) mmol/L ABG Total CO2 (19-24) mmol/L ABG O2 Saturation (94-97) % Sodium 129 L (137-145) mmol/L Potassium 3.1 L (3.5-5.1) mmol/L Chloride 92 L (98-107) mmol/L BUN 90 H (7-17) mg/dL Creatinine 1.20 H (0.52-1.04) mg/dL Glucose 173 H (74-99) mg/dL POC Glucose (mg/dL) 187 H (70-110) mg/dL Calcium 8.2 L (8.4-10.2) mg/dL AST 46 H (14-36) U/L Alkaline Phosphatase 187 H (38-126) U/L Total Protein 4.4 L (6.3-8.2) g/dL Albumin 1.8 L (3.5-5.0) g/dL 09/04/22 09/04/22 Range/Units 05:31 08:23 WBC (3.8-10.6) k/uL RBC (3.80-5.40) m/uL Hgb (11.4-16.0) gm/dL Hct (34.0-46.0) % RDW (11.5-15.5) % Plt Count (150-450) k/uL Neutrophils # (Manual) (1.3-7.7) k/uL Lymphocytes # (Manual) (1.0-4.8) k/uL Nucleated RBCs (0-0) /100 WBC ABG pCO2 46 H (35-45) mmHg ABG pO2 133 H (83-108) mmHg ABG HCO3 28 H (21-25) mmol/L ABG Total CO2 30 H (19-24) mmol/L ABG O2 Saturation 97.6 H (94-97) % Sodium (137-145) mmol/L Potassium (3.5-5.1) mmol/L Chloride (98-107) mmol/L BUN (7-17) mg/dL Creatinine (0.52-1.04) mg/dL Glucose (74-99) mg/dL POC Glucose (mg/dL) 130 H (70-110) mg/dL Calcium (8.4-10.2) mg/dL AST (14-36) U/L Alkaline Phosphatase (38-126) U/L Total Protein (6.3-8.2) g/dL Albumin (3.5-5.0) g/dL Microbiology - Last 24 Hours (Table) 08/29/22 13:29 Blood Culture - Preliminary Blood No Growth after 120 hours Assessment and Plan Plan: Acute on chronic hypoxemic respiratory failure, status post intubation on August 10, and tracheostomy on August 25. Bilateral lower lobe pneumonia with persistent consolidation lung bases. Most recent sputum indicating MRSA and Ange from 08/19/2022 Septic shock of multiple sources. The patient had initially Enterococcus faecalis and Pseudomonas in her urine on 08/08/2022. The patient also had anaerobic gram-negative bacillus in her blood probably of an end of the abdominal source. Subsequently, the patient had systemic candidemia on 08/19/2022 and VRE in her blood on 08/23/2022. She remains on pressors. She is currently on a norepinephrine at 0.14 mcg/kg/m. Unresponsive, CAT scan of the brain is negative, EEG showing severe encephalopathy TPN nutritional support Acute on chronic diastolic CHF. Abdominal sepsis/septic shock. Anion gap metabolic acidosis. Urinary tract infection secondary to Enterococcus faecalis and pseudomonas aeruginosa. Bacteremia secondary to vancomycin-resistant enterococci (VRE) Systemic candidiasis. The patient systemic candidemia confirmed by positive blood culture. Repeat blood culture was negative and the patient is current on Eraxis. Atrial fibrillation with RVR, rate controled for now Acute on chronic kidney disease. The creatinine is stable and the patient is currently on Lasix drip running at 10 mg an hour Recent history of coronavirus infection. History of aortic stenosis. Acute on chronic anemia. History of COPD. History of diastolic congestive heart failure. Morbid obesity. Diarrhea with fecal management system in Place Necrotic digits of the upper and lower extremities and the patient has gangrenous toes and fingers probably related to chronic sepsis, hypotension, and use of pressors Pressure ulcer on her coccyx Plan: Continue ventilator support for now and about the PEEP down to 8 Continue same antibiotic coverage Discontinue the laxatives for now Keep the fecal management system in place Continue TPN for nutritional support Continue Lasix drip at 10 mg an hour Unfortunately, this is a very poor prognosis. The patient remains unresponsive. Avoid sedatives for now Nothing much to add other than supportive care. Wound care Extremely poor prognosis. This has been discussed with the family on multiple occasions. Condition is critical and prognosis poor. We'll continue to follow. This evaluation was a on more than 30 minutes. Time with Patient: Greater than 30
--- NOTE | 2022-09-04 10:42 | P.PN ---
Subjective Patient is seen in follow-up for acute kidney injury. Renal function improved. Nonoliguric. Intubated. Currently on Levophed and vasopressin. On Lasix drip. Receiving TPN. present at bedside. Vital signs - on vasopressor support. General: Resting in bed. HEENT: Intubated. LUNGS: Breath sounds decreased. HEART: Regular rate and rhythm. ABDOMEN: Distention noted. EXTREMITITES: 2+ edema. Objective - Vital Signs Vital signs: Vital Signs Temp 97 F L 09/04/22 04:00 Pulse 92 09/04/22 09:38 Resp 30 H 09/04/22 09:38 BP 128/47 09/02/22 15:00 Pulse Ox 100 09/04/22 09:30 FiO2 40 09/04/22 09:30 Intake & Output 09/03/22 09/04/22 09/04/22 18:59 06:59 18:59 Intake Total 9356.178 5385.413 829.452 Output Total 3025 3050 1855 Balance -1192.534 -1474.587 -1025.548 Weight 130.2 kg Intake: IV 601 601 489 0.9% @ KVO 165 165 30 Anidulafungin 100 mg In 100 100 Sodium Chloride 0.9% 100 ml @ 84 mls/hr IVPB DAILY [facility] Rx#:[id number] Ceftolozane/Tazobactam 0. 100 100 100 75 gm In Sodium Chloride 0.9% 100 ml @ 100 mls/hr IV Q8HR [facility] Rx#:[id number] Lacosamide IV 150 mg In 50 50 50 Sodium Chloride 0.9% 50 ml @ 100 mls/hr IVPB BID [facility] Rx#:[id number] Normal Saline: Pressure 36 36 9 Bag Phenytoin Sodium Inj 300 50 50 mg In Sodium Chloride 0.9 % 50 ml @ 80 mls/hr IVPB Q12H [facility] Rx#:[id number] Potassium Chloride 20 meq 100 In Water For Injection 1 100ml.bag @ 50 mls/hr IVPB Q2H [facility] Rx#: [id number] Potassium Chloride 20 meq 100 In Water For Injection 1 100ml.bag @ 50 mls/hr IVPB Q2H [facility] Rx#: [id number] levETIRAcetam IV 1,000 mg 100 100 100 In Saline 1 100ml.bag @ 400 mls/hr IVPB Q12HR [facility] Rx#:[id number] Intake, IV Titration 451.466 194.413 145.452 Amount Furosemide 100 mg In 63.833 100 Sodium Chloride 0.9% 90 ml @ 10 MG/HR 10 mls/hr IV .Q10H [facility] Rx#: [id number] Norepinephrine 32 mg In 255.033 94.413 Sodium Chloride 0.9% 218 ml @ 0.5 MCG/KG/MIN 25. 547 mls/hr IV .Q9H48M [facility] Rx#:[id number] Vasopressin 60 unit In 132.6 145.452 Sodium Chloride 0.9% 150 ml @ 0.04 UNITS/MIN 6.12 mls/hr IV .Q24H [facility] Rx#: [id number] TPN/PPN 780 780 195 TPN 780 780 195 Output: Gastric Drainage 50 Urine 2975 3050 655 Stool 1200 Other: Voiding Method Indwelling Catheter Indwelling Catheter ABP, PAP, CO, CI - Last Documented Arterial Blood Pressure 114/45 - Labs CBC & Chem 7: 09/04/22 04:25 09/04/22 04:25 Labs: Abnormal Lab Results - Last 24 Hours (Table) 09/03/22 09/03/22 09/04/22 Range/Units 12:52 21:09 01:00 WBC (3.8-10.6) k/uL RBC (3.80-5.40) m/uL Hgb (11.4-16.0) gm/dL Hct (34.0-46.0) % RDW (11.5-15.5) % Plt Count (150-450) k/uL Neutrophils # (Manual) (1.3-7.7) k/uL Lymphocytes # (Manual) (1.0-4.8) k/uL Nucleated RBCs (0-0) /100 WBC ABG pCO2 (35-45) mmHg ABG pO2 (83-108) mmHg ABG HCO3 (21-25) mmol/L ABG Total CO2 (19-24) mmol/L ABG O2 Saturation (94-97) % Sodium (137-145) mmol/L Potassium (3.5-5.1) mmol/L Chloride (98-107) mmol/L BUN (7-17) mg/dL Creatinine (0.52-1.04) mg/dL Glucose (74-99) mg/dL POC Glucose (mg/dL) 111 H 193 H 177 H (70-110) mg/dL Calcium (8.4-10.2) mg/dL AST (14-36) U/L Alkaline Phosphatase (38-126) U/L Total Protein (6.3-8.2) g/dL Albumin (3.5-5.0) g/dL 09/04/22 09/04/22 09/04/22 Range/Units 04:23 04:25 04:25 WBC 14.6 H (3.8-10.6) k/uL RBC 3.11 L (3.80-5.40) m/uL Hgb 8.4 L (11.4-16.0) gm/dL Hct 26.9 L (34.0-46.0) % RDW 21.6 H (11.5-15.5) % Plt Count 104 L (150-450) k/uL Neutrophils # (Manual) 13.80 H (1.3-7.7) k/uL Lymphocytes # (Manual) 0.29 L (1.0-4.8) k/uL Nucleated RBCs 1 H (0-0) /100 WBC ABG pCO2 (35-45) mmHg ABG pO2 (83-108) mmHg ABG HCO3 (21-25) mmol/L ABG Total CO2 (19-24) mmol/L ABG O2 Saturation (94-97) % Sodium 129 L (137-145) mmol/L Potassium 3.1 L (3.5-5.1) mmol/L Chloride 92 L (98-107) mmol/L BUN 90 H (7-17) mg/dL Creatinine 1.20 H (0.52-1.04) mg/dL Glucose 173 H (74-99) mg/dL POC Glucose (mg/dL) 187 H (70-110) mg/dL Calcium 8.2 L (8.4-10.2) mg/dL AST 46 H (14-36) U/L Alkaline Phosphatase 187 H (38-126) U/L Total Protein 4.4 L (6.3-8.2) g/dL Albumin 1.8 L (3.5-5.0) g/dL 09/04/22 09/04/22 Range/Units 05:31 08:23 WBC (3.8-10.6) k/uL RBC (3.80-5.40) m/uL Hgb (11.4-16.0) gm/dL Hct (34.0-46.0) % RDW (11.5-15.5) % Plt Count (150-450) k/uL Neutrophils # (Manual) (1.3-7.7) k/uL Lymphocytes # (Manual) (1.0-4.8) k/uL Nucleated RBCs (0-0) /100 WBC ABG pCO2 46 H (35-45) mmHg ABG pO2 133 H (83-108) mmHg ABG HCO3 28 H (21-25) mmol/L ABG Total CO2 30 H (19-24) mmol/L ABG O2 Saturation 97.6 H (94-97) % Sodium (137-145) mmol/L Potassium (3.5-5.1) mmol/L Chloride (98-107) mmol/L BUN (7-17) mg/dL Creatinine (0.52-1.04) mg/dL Glucose (74-99) mg/dL POC Glucose (mg/dL) 130 H (70-110) mg/dL Calcium (8.4-10.2) mg/dL AST (14-36) U/L Alkaline Phosphatase (38-126) U/L Total Protein (6.3-8.2) g/dL Albumin (3.5-5.0) g/dL Microbiology - Last 24 Hours (Table) 08/29/22 13:29 Blood Culture - Preliminary Blood No Growth after 120 hours Assessment and Plan Plan: Assessment: 1. Acute kidney injury secondary to ATN secondary to septic shock. Baseline creatinine near 0.8 from June 2022 - peaked at 2.77 this admission -1.2 today. Nonoliguric. No hydronephrosis noted on CAT scan. 2. Septic shock secondary to UTI, fungemia and bacteremia. CAT scan done in 08/20/2022 showed pneumoperitoneum. On antibiotics/antifungal and vasopressor support. 3. Metabolic acidosis secondary to acute kidney injury. s/p bicarb drip. 4. Hypokalemia from diuresis. Being replaced. 5. Acute hypoxic respiratory failure. 6. A. fib with RVR. On po amiodarone. Cardiology following. 8. Hyponatremia secondary to acute kidney injury. Hypervolemic. 9. Hypocalcemia secondary to acute kidney injury. Improved. 10. Severe volume overload. 11. Status post tracheostomy this admission. Plan: Maintain Lasix drip. Maintain TPN. Wean FiO2 and vasopressors. Avoid nephrotoxins. Continue to monitor renal function and urine output. Prognosis poor. Continue to assess daily for need for renal replacement therapy. Stop vit D.
--- NOTE | 2022-09-04 12:15 | P.PN ---
Subjective Progress Note Date: 09/04/22 CHIEF COMPLAINT: Abdominal pain HISTORY OF PRESENT ILLNESS: Patient remains in the ICU and on mechanical ventilation. Patient had tracheostomy placed on 08/25/2022. Patient was unable to have PEG tube placed because light reflex was not visualized during EGD. Patient has had no significant change. Still requiring Levophed and vasopressin for blood pressure support. Tried tube feedings again through the NG tube over the weekend. Patient did not tolerate tube feeds. NG tube is currently dissection. She has TPN for nutrition support. Patient has been stooling. His fecal management system in place. Afebrile WBC is down from 17-14.6 Hgb 8.4 platelets 104 sodium 129 potassium 3.1 creatinine 1.20 Patient seen and examined with Dr. Head PHYSICAL EXAM: VITAL SIGNS: Reviewed GENERAL: On mechanical ventilation. Head is atraumatic, normocephalic. No nasal drainage. NECK: Tracheostomy site clean dry and intact CHEST: Non-labored respirations and equal bilateral excursions. CARDIOVASCULAR: Palpable 2+ radial pulses. ABDOMEN: distended. MUSCULOSKELETAL: No clubbing or cyanosis. ASSESSMENT: 1. Colon perforation 2. Sigmoid volvulus 3. Sepsis and septic shock 4. UTI 5. Bacteremia 6. Severe protein calorie malnutrition 7. Acute on chronic hypoxic respiratory failure PLAN: -Keep NG tube to suction -TPN for nutrition support -Continue supportive care -Continue ICU Physician Lamp Assembler note has been reviewed by physician. Signing provider agrees with the documented findings, assessment, and plan of care. Objective - Vital Signs Vital signs: Vital Signs Temp 97.4 F L 09/04/22 08:00 Pulse 95 09/04/22 11:45 Resp 30 H 09/04/22 11:45 BP 128/47 09/02/22 15:00 Pulse Ox 100 09/04/22 11:45 FiO2 40 09/04/22 09:30 Intake & Output 09/03/22 09/04/22 09/04/22 18:59 06:59 18:59 Intake Total 1101.767 1233.413 1095.452 Output Total 3025 3050 2205 Balance -1192.534 -1474.587 -1109.548 Weight 130.2 kg Intake: IV 601 601 625 0.9% @ KVO 165 165 60 Anidulafungin 100 mg In 100 100 Sodium Chloride 0.9% 100 ml @ 84 mls/hr IVPB DAILY [facility] Rx#:[id number] Ceftolozane/Tazobactam 0. 100 100 100 75 gm In Sodium Chloride 0.9% 100 ml @ 100 mls/hr IV Q8HR [facility] Rx#:[id number] Lacosamide IV 150 mg In 50 50 50 Sodium Chloride 0.9% 50 ml @ 100 mls/hr IVPB BID [facility] Rx#:[id number] Normal Saline: Pressure 36 36 15 Bag Phenytoin Sodium Inj 300 50 50 mg In Sodium Chloride 0.9 % 50 ml @ 80 mls/hr IVPB Q12H [facility] Rx#:[id number] Potassium Chloride 20 meq 100 In Water For Injection 1 100ml.bag @ 50 mls/hr IVPB Q2H [facility] Rx#: [id number] Potassium Chloride 20 meq 200 In Water For Injection 1 100ml.bag @ 50 mls/hr IVPB Q2H [facility] Rx#: [id number] levETIRAcetam IV 1,000 mg 100 100 100 In Saline 1 100ml.bag @ 400 mls/hr IVPB Q12HR [facility] Rx#:[id number] Intake, IV Titration 451.466 194.413 145.452 Amount Furosemide 100 mg In 63.833 100 Sodium Chloride 0.9% 90 ml @ 10 MG/HR 10 mls/hr IV .Q10H [facility] Rx#: [id number] Norepinephrine 32 mg In 255.033 94.413 Sodium Chloride 0.9% 218 ml @ 0.5 MCG/KG/MIN 25. 547 mls/hr IV .Q9H48M [facility] Rx#:[id number] Vasopressin 60 unit In 132.6 145.452 Sodium Chloride 0.9% 150 ml @ 0.04 UNITS/MIN 6.12 mls/hr IV .Q24H [facility] Rx#: [id number] TPN/PPN 780 780 325 TPN 780 780 325 Output: Gastric Drainage 50 Urine 2975 3050 1005 Stool 1200 Other: Voiding Method Indwelling Catheter Indwelling Catheter Indwelling Catheter ABP, PAP, CO, CI - Last Documented Arterial Blood Pressure 127/50 - Labs CBC & Chem 7: 09/04/22 04:25 09/04/22 04:25 Labs: Abnormal Lab Results - Last 24 Hours (Table) 09/03/22 09/03/22 09/04/22 Range/Units 12:52 21:09 01:00 WBC (3.8-10.6) k/uL RBC (3.80-5.40) m/uL Hgb (11.4-16.0) gm/dL Hct (34.0-46.0) % RDW (11.5-15.5) % Plt Count (150-450) k/uL Neutrophils # (Manual) (1.3-7.7) k/uL Lymphocytes # (Manual) (1.0-4.8) k/uL Nucleated RBCs (0-0) /100 WBC ABG pCO2 (35-45) mmHg ABG pO2 (83-108) mmHg ABG HCO3 (21-25) mmol/L ABG Total CO2 (19-24) mmol/L ABG O2 Saturation (94-97) % Sodium (137-145) mmol/L Potassium (3.5-5.1) mmol/L Chloride (98-107) mmol/L BUN (7-17) mg/dL Creatinine (0.52-1.04) mg/dL Glucose (74-99) mg/dL POC Glucose (mg/dL) 111 H 193 H 177 H (70-110) mg/dL Calcium (8.4-10.2) mg/dL AST (14-36) U/L Alkaline Phosphatase (38-126) U/L Total Protein (6.3-8.2) g/dL Albumin (3.5-5.0) g/dL 09/04/22 09/04/22 09/04/22 Range/Units 04:23 04:25 04:25 WBC 14.6 H (3.8-10.6) k/uL RBC 3.11 L (3.80-5.40) m/uL Hgb 8.4 L (11.4-16.0) gm/dL Hct 26.9 L (34.0-46.0) % RDW 21.6 H (11.5-15.5) % Plt Count 104 L (150-450) k/uL Neutrophils # (Manual) 13.80 H (1.3-7.7) k/uL Lymphocytes # (Manual) 0.29 L (1.0-4.8) k/uL Nucleated RBCs 1 H (0-0) /100 WBC ABG pCO2 (35-45) mmHg ABG pO2 (83-108) mmHg ABG HCO3 (21-25) mmol/L ABG Total CO2 (19-24) mmol/L ABG O2 Saturation (94-97) % Sodium 129 L (137-145) mmol/L Potassium 3.1 L (3.5-5.1) mmol/L Chloride 92 L (98-107) mmol/L BUN 90 H (7-17) mg/dL Creatinine 1.20 H (0.52-1.04) mg/dL Glucose 173 H (74-99) mg/dL POC Glucose (mg/dL) 187 H (70-110) mg/dL Calcium 8.2 L (8.4-10.2) mg/dL AST 46 H (14-36) U/L Alkaline Phosphatase 187 H (38-126) U/L Total Protein 4.4 L (6.3-8.2) g/dL Albumin 1.8 L (3.5-5.0) g/dL 09/04/22 09/04/22 Range/Units 05:31 08:23 WBC (3.8-10.6) k/uL RBC (3.80-5.40) m/uL Hgb (11.4-16.0) gm/dL Hct (34.0-46.0) % RDW (11.5-15.5) % Plt Count (150-450) k/uL Neutrophils # (Manual) (1.3-7.7) k/uL Lymphocytes # (Manual) (1.0-4.8) k/uL Nucleated RBCs (0-0) /100 WBC ABG pCO2 46 H (35-45) mmHg ABG pO2 133 H (83-108) mmHg ABG HCO3 28 H (21-25) mmol/L ABG Total CO2 30 H (19-24) mmol/L ABG O2 Saturation 97.6 H (94-97) % Sodium (137-145) mmol/L Potassium (3.5-5.1) mmol/L Chloride (98-107) mmol/L BUN (7-17) mg/dL Creatinine (0.52-1.04) mg/dL Glucose (74-99) mg/dL POC Glucose (mg/dL) 130 H (70-110) mg/dL Calcium (8.4-10.2) mg/dL AST (14-36) U/L Alkaline Phosphatase (38-126) U/L Total Protein (6.3-8.2) g/dL Albumin (3.5-5.0) g/dL Microbiology - Last 24 Hours (Table) 08/29/22 13:29 Blood Culture - Preliminary Blood No Growth after 120 hours
--- NOTE | 2022-09-04 12:37 | P.PN ---
Subjective Progress Note Date: 09/04/22 Principal diagnosis: Sepsis/septic shock Patient is a 87-year-old female with multiple comorbidities presented to the hospital with a syncopal episode weakness subsequently hypotension, sepsis requiring transfer to the ICU and intubation on the vent. She patient did have a CT of abdominal pelvis completed on 08/20/2022 with evidence of pneumoperitoneum Gen. surgery discussed with the family currently being treated medically On today's evaluation that is 09/04/2022, the patient continues to be afebrile, the patient is requiring slightly less pressor support to maintain her blood pressure this morning compared to yesterday per the nursing staff, the patient FiO2 is stable at 40 %, no purulent secretions through the ET , patient did have NG to suction, tube feeds has been put on hold as the patient was not tolerating them with high residual, patient did have a fecal management system for her diarrhea Objective - Vital Signs Vital signs: Vital Signs Temp 97 F L 09/04/22 04:00 Pulse 92 09/04/22 09:20 Resp 30 H 09/04/22 09:20 BP 128/47 09/02/22 15:00 Pulse Ox 100 09/04/22 09:30 FiO2 40 09/04/22 09:30 Intake & Output 09/03/22 09/04/22 09/04/22 18:59 06:59 18:59 Intake Total 2829.359 3651.413 829.452 Output Total 3025 3050 1855 Balance -1192.534 -1474.587 -1025.548 Weight 130.2 kg Intake: IV 601 601 489 0.9% @ KVO 165 165 30 Anidulafungin 100 mg In 100 100 Sodium Chloride 0.9% 100 ml @ 84 mls/hr IVPB DAILY [facility] Rx#:[id number] Ceftolozane/Tazobactam 0. 100 100 100 75 gm In Sodium Chloride 0.9% 100 ml @ 100 mls/hr IV Q8HR [facility] Rx#:[id number] Lacosamide IV 150 mg In 50 50 50 Sodium Chloride 0.9% 50 ml @ 100 mls/hr IVPB BID [facility] Rx#:[id number] Normal Saline: Pressure 36 36 9 Bag Phenytoin Sodium Inj 300 50 50 mg In Sodium Chloride 0.9 % 50 ml @ 80 mls/hr IVPB Q12H [facility] Rx#:[id number] Potassium Chloride 20 meq 100 In Water For Injection 1 100ml.bag @ 50 mls/hr IVPB Q2H [facility] Rx#: [id number] Potassium Chloride 20 meq 100 In Water For Injection 1 100ml.bag @ 50 mls/hr IVPB Q2H [facility] Rx#: [id number] levETIRAcetam IV 1,000 mg 100 100 100 In Saline 1 100ml.bag @ 400 mls/hr IVPB Q12HR [facility] Rx#:[id number] Intake, IV Titration 451.466 194.413 145.452 Amount Furosemide 100 mg In 63.833 100 Sodium Chloride 0.9% 90 ml @ 10 MG/HR 10 mls/hr IV .Q10H [facility] Rx#: [id number] Norepinephrine 32 mg In 255.033 94.413 Sodium Chloride 0.9% 218 ml @ 0.5 MCG/KG/MIN 25. 547 mls/hr IV .Q9H48M [facility] Rx#:[id number] Vasopressin 60 unit In 132.6 145.452 Sodium Chloride 0.9% 150 ml @ 0.04 UNITS/MIN 6.12 mls/hr IV .Q24H [facility] Rx#: [id number] TPN/PPN 780 780 195 TPN 780 780 195 Output: Gastric Drainage 50 Urine 2975 3050 655 Stool 1200 Other: Voiding Method Indwelling Catheter Indwelling Catheter ABP, PAP, CO, CI - Last Documented Arterial Blood Pressure 114/45 - Exam GENERAL DESCRIPTION: An elderly female intubated on the vent RESPIRATORY SYSTEM: Unlabored breathing , decreased breath sounds at bases HEART: S1 S2 regular rate and rhythm , ABDOMEN: Soft , abdominal distention EXTREMITIES: Diffuse swelling bilateral lower extremity no redness - Labs CBC & Chem 7: 09/04/22 04:25 09/04/22 04:25 Labs: Abnormal Lab Results - Last 24 Hours (Table) 09/03/22 09/03/22 09/04/22 Range/Units 12:52 21:09 01:00 WBC (3.8-10.6) k/uL RBC (3.80-5.40) m/uL Hgb (11.4-16.0) gm/dL Hct (34.0-46.0) % RDW (11.5-15.5) % Plt Count (150-450) k/uL Neutrophils # (Manual) (1.3-7.7) k/uL Lymphocytes # (Manual) (1.0-4.8) k/uL Nucleated RBCs (0-0) /100 WBC ABG pCO2 (35-45) mmHg ABG pO2 (83-108) mmHg ABG HCO3 (21-25) mmol/L ABG Total CO2 (19-24) mmol/L ABG O2 Saturation (94-97) % Sodium (137-145) mmol/L Potassium (3.5-5.1) mmol/L Chloride (98-107) mmol/L BUN (7-17) mg/dL Creatinine (0.52-1.04) mg/dL Glucose (74-99) mg/dL POC Glucose (mg/dL) 111 H 193 H 177 H (70-110) mg/dL Calcium (8.4-10.2) mg/dL AST (14-36) U/L Alkaline Phosphatase (38-126) U/L Total Protein (6.3-8.2) g/dL Albumin (3.5-5.0) g/dL 09/04/22 09/04/22 09/04/22 Range/Units 04:23 04:25 04:25 WBC 14.6 H (3.8-10.6) k/uL RBC 3.11 L (3.80-5.40) m/uL Hgb 8.4 L (11.4-16.0) gm/dL Hct 26.9 L (34.0-46.0) % RDW 21.6 H (11.5-15.5) % Plt Count 104 L (150-450) k/uL Neutrophils # (Manual) 13.80 H (1.3-7.7) k/uL Lymphocytes # (Manual) 0.29 L (1.0-4.8) k/uL Nucleated RBCs 1 H (0-0) /100 WBC ABG pCO2 (35-45) mmHg ABG pO2 (83-108) mmHg ABG HCO3 (21-25) mmol/L ABG Total CO2 (19-24) mmol/L ABG O2 Saturation (94-97) % Sodium 129 L (137-145) mmol/L Potassium 3.1 L (3.5-5.1) mmol/L Chloride 92 L (98-107) mmol/L BUN 90 H (7-17) mg/dL Creatinine 1.20 H (0.52-1.04) mg/dL Glucose 173 H (74-99) mg/dL POC Glucose (mg/dL) 187 H (70-110) mg/dL Calcium 8.2 L (8.4-10.2) mg/dL AST 46 H (14-36) U/L Alkaline Phosphatase 187 H (38-126) U/L Total Protein 4.4 L (6.3-8.2) g/dL Albumin 1.8 L (3.5-5.0) g/dL 09/04/22 09/04/22 Range/Units 05:31 08:23 WBC (3.8-10.6) k/uL RBC (3.80-5.40) m/uL Hgb (11.4-16.0) gm/dL Hct (34.0-46.0) % RDW (11.5-15.5) % Plt Count (150-450) k/uL Neutrophils # (Manual) (1.3-7.7) k/uL Lymphocytes # (Manual) (1.0-4.8) k/uL Nucleated RBCs (0-0) /100 WBC ABG pCO2 46 H (35-45) mmHg ABG pO2 133 H (83-108) mmHg ABG HCO3 28 H (21-25) mmol/L ABG Total CO2 30 H (19-24) mmol/L ABG O2 Saturation 97.6 H (94-97) % Sodium (137-145) mmol/L Potassium (3.5-5.1) mmol/L Chloride (98-107) mmol/L BUN (7-17) mg/dL Creatinine (0.52-1.04) mg/dL Glucose (74-99) mg/dL POC Glucose (mg/dL) 130 H (70-110) mg/dL Calcium (8.4-10.2) mg/dL AST (14-36) U/L Alkaline Phosphatase (38-126) U/L Total Protein (6.3-8.2) g/dL Albumin (3.5-5.0) g/dL Microbiology - Last 24 Hours (Table) 08/29/22 13:29 Blood Culture - Preliminary Blood No Growth after 120 hours Assessment and Plan (1) Sepsis Current Visit: Yes Status: Acute Code(s): A41.9 - SEPSIS, UNSPECIFIED ORGANISM SNOMED Code(s): 66801334 Plan: 1patient was in the hospital with sepsis and septic shock initially concern for multidrug-resistant Pseudomonas UTI, patient also have a candidemia secondary to possible abdominal source and now with a VRE bacteremia source likely abdominal 2patient did have evidence of colonic perforation and peritonitis being managed medically as the patient considered to be high risk for any surgical procedure 3patient did have persistent VRE bacteremia and could be related to the multipl e lines , patient will benefit from removal of those lines to control her bacteremia, patient did have a repeat blood cultures on 08/29/2022 those are negative so far 4-the patient clinical condition remains to be guarded however the patient did have resolution of her fever and repeat blood culture has been negative so far, the patient white count slightly down to 14,000 today 5- patient condition remains to be guarded, patient is currently being treated Zyvox Zerbex and Eraxis and will monitor clinical course closely, at the bedside questions were answered Time with Patient: Less than 30
[2022-09-04 13:40] LABS: Glucose,Whole Blood 158 mg/dL (70-110)
--- NOTE | 2022-09-04 16:44 | P.PN ---
Subjective Progress Note Date: 09/04/22 H&P Date: 08/09/22 Chief Complaint: Shortness of breath,Altered mental statConstipation, syncope, hyperglycemia This is a pleasant 87-year-old female with past medical history of CAD, VT, stent placement, aortic stenosis ,chronic hypoxic respiratory failure,on 2 L nasal cannula ,Covid 06/22,COPD, former nicotine dependence, obstructive sleep apnea ,CVA/TIA, diabetes mellitus, hypertension, hyperlipidemia, hypothyroidism, recurrent UTIs,CKD III, urinary retention, anemia, bilateral peripheral neuropathy, gait dysfunction,utilizing walker, falls, morbid obesity-BMI 39.9 and multiple other medical issues brought in via ambulance, on BiPAP to the ER for change in level of consciousness, syncope, nausea, vomiting, hyperglycemia, constipation-on [place], shortness of breath, recently discharged from [facility] subacute rehab on 08/06/2022. Information being obtained from chart and daughter at bedside. Daughter reports they are unsure of her last bowel movement, possibly , 08/03. [facility] documented large bowel movement on 08/04 and 08/05. Reports yesterday blood sugars were running high in the 400s, patient developed nausea and vomiting, change in sensorium, passed out while on the toilet. Reports patient "coughs all the time, but has COPD", no knowledge of fevers, denies chills. Denies chest pain, palpitations, positive shortness of breath. Developed hypotension in the ER in addition to emesis, received fluid bolus .Chest x-ray reported right basilar infiltrate with persistent small right effusion, no overt failure. EKG reported sinus rhythm, troponin negative 1. KUB reported marked gastric distention, additional small bowel loops dilated, possibly retained debris within the rectum and sigmoid colon. 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 NG tube placed in the ER with 1200 MLS bilious output reported overnight. D-dimer elevated 4.73, CT angio chest reported no evidence of pulmonary embolism,more consolidation changes in the right lung base, rule out aspiration. ProBNP 426. UA reported many WBC clumps, 165 WBCs, large leukocytes, negative nitrates, culture pending. Afebrile, on admission temperature 96.7, currently 98.8. WBC 14.3. lactic acid 3.5, repeat level pending. Hemoglobin 10.2, platelets 4:15, a I's within normal limits, BUN 40, creatinine 1.5. BiPAP weaned off, currently requiring 6 L nasal cannula O2 to maintain O2 sats in the low 90s. 08/10/22 Continued to decline throughout the night requiring ICU admission, maintained on vasopressin, Levophed and bicarb drips. Received fluid boluses throughout the night. Lactic acid decreased to 2.1. Low urine output on Lasix IV push. BUN 81, creatinine 2.68. Hyperkalemic, received calcium, insulin, D50, sodium bicarbonate. Chest x-ray reporting stable bilateral lower lobe infiltrate and small effusion. Afebrile, T-max 99.7. Continues on Levaquin, WBC normalized today. Cefepime added to antibiotic regimen today. Preliminary Urine cultures reporting group D enterococcus 50-100,000 colonies and gram-negative bacilli 10 and 49,000 colonies. 07/03 Blood cultures reporting GNB. Hemoglobin 8.2, platelets 311. 08/11/2022 Vent dependent, FiO2 60%/+5 of PEEP. Chest x-ray reports stable, no change in bibasilar opacities, pleural effusion unchanged. Continues on the Levophed and vasopressin drips. Febrile to the night, T-max 102.4, WBC increased to 12.2. Lactic acid trended up during the night, received fluid boluses, currently at 3.2. Developed atrial fibrillation with RVR, bolused with amiodarone and currently on amiodarone drip. Urine culture reporting enterococcus faecalis and Pseudomonas aeruginosa.Films reviewed by general surgery, reporting sigmoid volvulus. Recommending conservative management. BUN 79, creatinine 2.74. Hyperglycemic. Hemoglobin 8.6, platelets 349. Anticoagulation remains on hold. 08/21/2022 remains vent dependent, FiO2 50%/+5 of PEEP. Maintained on high doses of levophed, vasopressin. Amiodarone and bicarb drips continue. Receiving IV albumin to be followed by Lasix. Worsening renal function. Staff reports no urine output 24 hours. Bicarb 16, BUN 76, creatinine 1.73. Repeat CT of abdomen and pelvis completed yesterday, reporting moderate volume pneumo peritoneum, suspected perforation of distal colonic bowel, extensive distal bowel pneumatosis. Surgery discussed findings with family, high risk for surgical intervention. Family decided against surgical intervention,but to continue with nonsurgical care. T-max 100.6. Maintained on Zerbaxa, Eraxis, daptomycin .Seizure-like activity reported yesterday afternoon, placed on Keppra, reoccurred in the [place] hours 2. Brain CT reported no acute intracranial process .EEG completed, results pending. 08/22/2022 vent dependent, 40% FiO2, +5 of PEEP. Staff reports patient desats quickly with turning. Chest x-ray reporting bibasilar atelectasis, consolidation, minimally increased, possible tiny right basilar pleural effusion. Continues on high doses of pressors, digits dusky. Maintained on bicarb drip. Telemetry atrial fibrillation, fast ventricular rate on amiodarone drip. Remains on antibiotics as per infectious disease.BUN 83, creatinine 1.79. T-max 102, WBC decreased, 16.5 08/23/2022 FiO2 50%/+5 of PEEP. Chest x-ray reported no significant change .Continues on pressor support. Maintained on amiodarone drip, heart rates currently in the 1 teens to 120s. Continues on daptomycin, Zerbexa and Eraxis.T-max 100.9, WBC 15.3. BUN 83, creatinine 2.13. WBC decreased to 15.3. Receiving IV albumin, Albumin currently 1.6. Ionized calcium 3.4, receiving supplementation. 08/24/2022 continues in A. fib, heart rates 110 to 130s on amiodarone drip. Seizure activity yesterday reported with facial twitching lasting approximately half an hour EEG performed-reported abnormal 2-1/2 hour EEG suggesting epileptiform focus involving midline occipital parietal region. Vimpat and Keppra doses increased. Continue to have seizure activity today, right-sided face twitching, trembling of arm reported, repeat EEG in progress. Versed drip initiated. Brain Ct pending. Maximized on both norepi and vasopressin. Digits dusky, declining comfort care at this time. Continues on bicarb drip. Remains vent dependent on FiO2 50%/+5 of PEEP. Now trach and PEG are being considered. 08/25/2022 maximized on pressors, levophed and vasopressin. Mechanical ventilator-dependent, FiO2 50%/+5 of PEEP. Chest x-ray reporting worsening bibasilar consolidation ,bilateral pneumonia. Family meeting via phone this morning with Dr. Hartman PCP, regarding poor prognosis, futile condition. Scheduled for tracheostomy and PEG-consent pending. Continues on amiodarone, bicarb drips. TPN. Continues to have seizure activity, on Versed drip, Dilantin added to med regimen. Afebrile, worsening WBC, 21.7, potassium 3, receiving supplementation. BUN 79, creatinine 1.87. Ionized calcium 3.4, supplemented. 08/28/2022 Remains vent dependent, FiO2 45%/+10 of PEEP status post tracheostomy 08/25. Nebulized bronchodilators, IV steroids. Receiving TPN/lipids. Requiring insulin drip for hyperglycemia, blood sugars currently ranging 160s to 170s.Ongoing seizures, continues on Versed drip, Dilantin, Keppra, Vimpat. EEG repeated yesterday, reported severely abnormal, suppression worsening-seen with severe anoxic or toxic metabolic encephalopathy, nonconvulsive generalized status epilepticus cannot be ruled out. Maintained on vasopressin, Levophed and Lasix drips. Antibiotics as per infectious disease. Afebrile, WBC 22.4. 08/29/2022 remains vent dependent, FiO2 45%/+10 of PEEP. Chest x-ray reporting bilateral infiltrates and pleural effusion, pneumonia versus CHF. PEG tube unable to be placed, please refer to the surgeon's note.Maintained on vasopressin, Levophed Lasix, Versed and Ativan drips. Repeat EEG pending. Continues on antibiotics of Eraxis, Zyvox and Zerbaxa. Afebrile, WBC 22.6. Hemoglobin 6.5, receiving one unit of packed RBCs. Platelets 255. 08/30/2022 remains vent dependent, FiO2 45%/+10 of PEEP. Chest x-ray reporting stable bilateral infiltrates and pleural effusion. Continues on TPN, Lasix drip, norepinephrine, vasopressin. Maintained on Eraxis, Zyvox and Zerbaxa. Afebrile, WBC 20.7. Ammonia 50.EEG yesterday -refer to neurology report.Versed and Ativan drips turned off, 2 hour EEG recently started. Received one unit of packed RBCs yesterday with current hemoglobin 8.1, platelets 221. Sodium decreased to 126. Bicarb 21, BUN 81, creatinine 1.62. Albumin 1.6. Nephrology discussing renal replacement therapy secondary to fluid volume overload if family continues with aggressive therapy. 08/31/22 continues on vasopressor support, antifungal/antibiotics, oral antiarrhythmics, TPN, IV steroids, nebulized bronchodilators, IV diuretics, seizure management including Versed and Ativan drips,lactulose, mechanical ventilation with FiO2 45% status post 10 of PEEP. Chest x-ray reporting potentially developing mild pulmonary vascular congestion, ongoing right greater than left bibasilar consolidation/atelectasis and small effusions. Maintained on Lasix drip, severe volume overload. Nephrology discussing potential SLED as requesting to continue with current aggressive treatment at this time. 09/01/2022 Tube feeds stopped as patient developed high residuals during the night, maintained on TPN. No clinical seizure activity reported. Neurology workup continues, EEG recently repeated, results pending. Remains vent dependent, FiO2 40%/+10 of PEEP, pressor dependent and on IV Lasix. BUN 86, creatinine 1.65. Continues on antibiotics/antifungal. Afebrile. Family undecided regarding SLED/renal replacement treatment option discussed as per nephrology. 09/04/2022 Remains off of sedation, Vent dependent FIO2 40%/+8 Peep. Telemetry atrial fibrillation, controlled ventricular rate. Pressor support with both L evophed,Vasopressin, Lasix drips. 24-hour I&O reporting a negative fluid balance. High residuals, unable to tolerate tube feeds with NG ,currently on TPN for nutritional support.loose stool, FMS present.Blood sugars currently 150s. Brain CT repeated yesterday reporting cerebral atrophy, no acute i ntracranial abnormality, no change. Maintained on Zyvox Zerbex and Eraxis . Afebrile, WBC decreased to 14.6. Hemoglobin 8.4, platelets 104. Sodium 129, BUN 90, creatinine 1.2. T bili 0.4 AST 46 ALT 27, alk phos 187. ammonia level XX. Albumin 1.8. Objective - Vital Signs Vital signs: Vital Signs Temp 97.4 F L 09/04/22 08:00 Pulse 101 H 09/04/22 12:33 Resp 30 H 09/04/22 12:33 BP 128/47 09/02/22 15:00 Pulse Ox 100 09/04/22 11:45 FiO2 40 09/04/22 12:11 Intake & Output 09/03/22 09/04/22 09/04/22 18:59 06:59 18:59 Intake Total 5411.670 3346.413 1095.452 Output Total 3025 3050 2205 Balance -1192.534 -1474.587 -1109.548 Weight 130.2 kg 130.2 kg Intake: IV 601 601 625 0.9% @ KVO 165 165 60 Anidulafungin 100 mg In 100 100 Sodium Chloride 0.9% 100 ml @ 84 mls/hr IVPB DAILY [facility] Rx#:[id number] Ceftolozane/Tazobactam 0. 100 100 100 75 gm In Sodium Chloride 0.9% 100 ml @ 100 mls/hr IV Q8HR [facility] Rx#:[id number] Lacosamide IV 150 mg In 50 50 50 Sodium Chloride 0.9% 50 ml @ 100 mls/hr IVPB BID [facility] Rx#:[id number] Normal Saline: Pressure 36 36 15 Bag Phenytoin Sodium Inj 300 50 50 mg In Sodium Chloride 0.9 % 50 ml @ 80 mls/hr IVPB Q12H [facility] Rx#:[id number] Potassium Chloride 20 meq 100 In Water For Injection 1 100ml.bag @ 50 mls/hr IVPB Q2H [facility] Rx#: [id number] Potassium Chloride 20 meq 200 In Water For Injection 1 100ml.bag @ 50 mls/hr IVPB Q2H [facility] Rx#: [id number] levETIRAcetam IV 1,000 mg 100 100 100 In Saline 1 100ml.bag @ 400 mls/hr IVPB Q12HR [facility] Rx#:[id number] Intake, IV Titration 451.466 194.413 145.452 Amount Furosemide 100 mg In 63.833 100 Sodium Chloride 0.9% 90 ml @ 10 MG/HR 10 mls/hr IV .Q10H [facility] Rx#: [id number] Norepinephrine 32 mg In 255.033 94.413 Sodium Chloride 0.9% 218 ml @ 0.5 MCG/KG/MIN 25. 547 mls/hr IV .Q9H48M [facility] Rx#:[id number] Vasopressin 60 unit In 132.6 145.452 Sodium Chloride 0.9% 150 ml @ 0.04 UNITS/MIN 6.12 mls/hr IV .Q24H [facility] Rx#: [id number] TPN/PPN 780 780 325 TPN 780 780 325 Output: Gastric Drainage 50 Urine 2975 3050 1005 Stool 1200 Other: Voiding Method Indwelling Catheter Indwelling Catheter Indwelling Catheter ABP, PAP, CO, CI - Last Documented Arterial Blood Pressure 127/50 - Exam GENERAL EXAM: on mechanical ventilation/tracheostomy.unresponsive. HEENT: Normocephalic. NECK: supple, unable to assess for JVD. LUNGS: Equal air entry, diminished, scattered rhonchi CV: S1 and S2. Irregular Rhythm with no audible murmur. ABDOMEN:Distended, unable to auscultate bowel sounds. FMS with liquid brown stooling SKIN: Edematous, pitting, weeping CENTRAL NERVOUS SYSTEM: Unable to assess, on mechanical ventilation EXTREMITIES: Positive peripheral edema, darker-dusky digits, cyanotic nail beds, skin peeling. Microbiology 08/29/22 13:29 Blood Blood Culture - Preliminary No Growth after 120 hours 08/23/22 11:40 Blood Blood Culture Gram Stain - Final 08/23/22 11:40 Blood Blood Culture - Final Enterococcus faecium VRE 08/19/22 22:00 Blood Blood Culture Gram Stain - Final 08/19/22 22:00 Blood Blood Culture - Final Enterococcus faecium 08/19/22 18:00 Stool Stool Culture - Final 08/23/22 11:40 Blood Blood Culture - Final 08/19/22 21:07 Sputum Gram Stain - Final 08/19/22 21:07 Sputum Sputum Culture - Final Methicillin resist S. aureus Ange albicans 08/19/22 22:00 Blood Blood Culture - Final 08/14/22 15:00 Blood Blood Culture - Final No Growth after 144 hours 08/10/22 17:00 Blood Blood Culture - Final No Growth after 144 hours 08/08/22 13:30 Blood Blood Culture Gram Stain - Final 08/08/22 13:30 Blood Blood Culture - Final Anaerobic Gm Negative Bacilli 08/09/22 14:19 Blood Blood Culture - Final No Growth after 144 hours 08/08/22 13:00 Blood Blood Culture - Final No Growth after 144 hours 08/11/22 16:05 Blood Blood Culture Gram Stain - Final 08/11/22 16:05 Blood Blood Culture - Final Ange albicans 08/11/22 17:06 Sputum Gram Stain - Final 08/11/22 17:06 Sputum Sputum Culture - Final Ange albicans 08/11/22 16:05 Blood Blood Culture - Final 08/08/22 13:10 Urine,Voided Urine Culture - Final Enterococcus faecalis Pseudomonas aeruginosa 08/08/22 13:30 Blood Blood Culture - Final - Labs CBC & Chem 7: 09/04/22 04:25 09/04/22 13:35 Labs: Abnormal Lab Results - Last 24 Hours (Table) 09/03/22 09/04/22 09/04/22 Range/Units 21:09 01:00 04:23 WBC (3.8-10.6) k/uL RBC (3.80-5.40) m/uL Hgb (11.4-16.0) gm/dL Hct (34.0-46.0) % RDW (11.5-15.5) % Plt Count (150-450) k/uL Neutrophils # (Manual) (1.3-7.7) k/uL Lymphocytes # (Manual) (1.0-4.8) k/uL Nucleated RBCs (0-0) /100 WBC ABG pCO2 (35-45) mmHg ABG pO2 (83-108) mmHg ABG HCO3 (21-25) mmol/L ABG Total CO2 (19-24) mmol/L ABG O2 Saturation (94-97) % Sodium (137-145) mmol/L Potassium (3.5-5.1) mmol/L Chloride (98-107) mmol/L BUN (7-17) mg/dL Creatinine (0.52-1.04) mg/dL Glucose (74-99) mg/dL POC Glucose (mg/dL) 193 H 177 H 187 H (70-110) mg/dL Calcium (8.4-10.2) mg/dL AST (14-36) U/L Alkaline Phosphatase (38-126) U/L Total Protein (6.3-8.2) g/dL Albumin (3.5-5.0) g/dL 09/04/22 09/04/22 09/04/22 Range/Units 04:25 04:25 05:31 WBC 14.6 H (3.8-10.6) k/uL RBC 3.11 L (3.80-5.40) m/uL Hgb 8.4 L (11.4-16.0) gm/dL Hct 26.9 L (34.0-46.0) % RDW 21.6 H (11.5-15.5) % Plt Count 104 L (150-450) k/uL Neutrophils # (Manual) 13.80 H (1.3-7.7) k/uL Lymphocytes # (Manual) 0.29 L (1.0-4.8) k/uL Nucleated RBCs 1 H (0-0) /100 WBC ABG pCO2 46 H (35-45) mmHg ABG pO2 133 H (83-108) mmHg ABG HCO3 28 H (21-25) mmol/L ABG Total CO2 30 H (19-24) mmol/L ABG O2 Saturation 97.6 H (94-97) % Sodium 129 L (137-145) mmol/L Potassium 3.1 L (3.5-5.1) mmol/L Chloride 92 L (98-107) mmol/L BUN 90 H (7-17) mg/dL Creatinine 1.20 H (0.52-1.04) mg/dL Glucose 173 H (74-99) mg/dL POC Glucose (mg/dL) (70-110) mg/dL Calcium 8.2 L (8.4-10.2) mg/dL AST 46 H (14-36) U/L Alkaline Phosphatase 187 H (38-126) U/L Total Protein 4.4 L (6.3-8.2) g/dL Albumin 1.8 L (3.5-5.0) g/dL 09/04/22 09/04/22 Range/Units 08:23 13:39 WBC (3.8-10.6) k/uL RBC (3.80-5.40) m/uL Hgb (11.4-16.0) gm/dL Hct (34.0-46.0) % RDW (11.5-15.5) % Plt Count (150-450) k/uL Neutrophils # (Manual) (1.3-7.7) k/uL Lymphocytes # (Manual) (1.0-4.8) k/uL Nucleated RBCs (0-0) /100 WBC ABG pCO2 (35-45) mmHg ABG pO2 (83-108) mmHg ABG HCO3 (21-25) mmol/L ABG Total CO2 (19-24) mmol/L ABG O2 Saturation (94-97) % Sodium (137-145) mmol/L Potassium (3.5-5.1) mmol/L Chloride (98-107) mmol/L BUN (7-17) mg/dL Creatinine (0.52-1.04) mg/dL Glucose (74-99) mg/dL POC Glucose (mg/dL) 130 H 158 H (70-110) mg/dL Calcium (8.4-10.2) mg/dL AST (14-36) U/L Alkaline Phosphatase (38-126) U/L Total Protein (6.3-8.2) g/dL Albumin (3.5-5.0) g/dL Microbiology - Last 24 Hours (Table) 08/29/22 13:29 Blood Culture - Preliminary Blood No Growth after 120 hours Assessment and Plan Assessment: Sepsis, septic shock with multisystem organ failure secondary to acute enterococcus faecalis and Pseudomonas aeruginosa UTI, with acute VRE bacteremia ,abdominal sepsis. Systemic candidiasis. Hypotension, severe, secondary to the above, pressor dependent Necrotic digits of the upper and lower extremities, secondary to chronic sepsis, hypotension and use of pressors Coccyx Pressure ulcer Septic, metabolic encephalopathy Seizure activity, workup in progress, neurology following Acute on chronic hypoxic respiratory failure, ventilator dependent, secondary to all the above, status post tracheostomy 08/25 Acute on chronic CHF exacerbation, diastolic dysfunction secondary to volume overload Hyponatremia Hyperammonium Hypocalcemia secondary to acute renal failure, improving Protein calorie malnutrition, maintained on TPN Chronic changes of the right lower lobe and small right pleural effusion as per pulmonary Acute on CKD III, secondary to ATN related to the above Persistent Atrial fibrillation with RVR, status post amiodarone drip, In a patient with history of chronic atrial fibrillation. Metabolic acidosis, status post bicarb drip Abdominal pain, constipation, last bowel movement reported 08/05.Films reviewed by general surgery, reporting sigmoid volvulus. Continued clinical worsening;Proba ble perforated viscus with pneumoperitoneum reported per CT on 08/20/2022. Leukocytosis Diabetes mellitus, family reports hyperglycemic at home, A1c 6. Recent COVID-19 infection, 06/22 COPD, history of Valvular heart disease, moderate aortic stenosis, preserved LV function Chronic anemia Generalized weakness, gait dysfunction, multiple falls recently reported, recently discharged from [facility] subacute rehab. 08/06/22. History of CVA, TIA History of Hypertension Hyperlipidemia Hypothyroidism Morbid obesity, BMI 56.7 No code, no CPR, no reintubation Plan: Continue on current medication regime ,monitoring and symptomatic treatment. Prognosis poor, rediscussed with family( daughter and )at bedside. Multiple consults following/ICU management as per can striper. The impression and plan of care has been dictated as directed. : I performed a history and examination of this patient, discussed the same with the dictator. I agree with the dictator's note ,documented as a scribe. Any additional findings or plans will be noted.
[2022-09-04 17:33] LABS: Glucose,Whole Blood 141 mg/dL (70-110)
[2022-09-04] MEDS: FUROSEMIDE 100 MG in SODIUM CHLORIDE 0.9% 90 ML IV SCH (19:02)
[2022-09-04 20:46] LABS: Glucose,Whole Blood 179 mg/dL (70-110)
[2022-09-04] MEDS: INSULIN DETEMIR (LEVEMIR) 100 UNIT/ML SYR SQ SCH (20:53)
[2022-09-05] MEDS: CEFTOLOZANE/TAZOBACTAM 0.75 GM in SODIUM CHLORIDE 0.9% 100 ML IV SCH ×2 (00:08→09:45)
[2022-09-05] MEDS: PHENYTOIN SODIUM INJ 300 MG in SODIUM CHLORIDE 0.9% 50 ML IVPB SCH ×3 (00:11→12:22)
[2022-09-05 01:01] LABS: Glucose,Whole Blood 210 mg/dL (70-110)
[2022-09-05] MEDS: INSULIN ASPART (NovoLOG) 100 UNIT/ML VIAL SQ SCH ×6 (01:10→20:55)
[2022-09-05] MEDS: LINEZOLID 600 MG in DEXTROSE/WATER 1 300ML.BAG IVPB SCH ×2 (01:58→12:03)
[2022-09-05] MEDS: MIDAZOLAM HCL 50 MG in SODIUM CHLORIDE 0.9% 40 ML IV SCH ×2 (02:19→09:46)
[2022-09-05] MEDS: NOREPINEPHRINE 32 MG in SODIUM CHLORIDE 0.9% 218 ML IV SCH ×2 (02:27→11:53)
[2022-09-05 05:14] LABS: Glucose,Whole Blood 211 mg/dL (70-110)
[2022-09-05 05:52] LABS: Ionized Calcium 4.9 mg/dL (4.5-5.3)
[2022-09-05 06:01] LABS: Albumin 1.8 g/dL (3.5-5.0); Calcium 8.5 mg/dL (8.4-10.2); Magnesium 1.9 mg/dL (1.6-2.3); Phosphorus 2.9 mg/dL (2.5-4.5); Potassium 3.2 mmol/L (3.5-5.1); Total Bilirubin 0.4 mg/dL (0.2-1.3); Total Protein 4.3 g/dL (6.3-8.2)
[2022-09-05] MEDS: FUROSEMIDE 100 MG in SODIUM CHLORIDE 0.9% 90 ML IV SCH ×2 (06:15→15:06)
[2022-09-05 06:16] LABS: Anisocytosis Moderate; HCT 26.7 % (34.0-46.0); HGB 8.2 gm/dL (11.4-16.0); Hypochromasia Slight; MCH 26.6 pg (25.0-35.0); MCHC 30.7 g/dL (31.0-37.0); MCV 86.7 fL (80.0-100.0); Mean Platelet Volume 9.4; Microcytosis Slight; Platelet Count 66 k/uL (150-450); Poikilocytosis Moderate; RBC 3.08 m/uL (3.80-5.40)
[2022-09-05] MEDS: POTASSIUM CHLORIDE 20 MEQ in WATER FOR INJECTION 1 100ML.BAG IVPB SCH ×2 (06:16→08:34)
[2022-09-05 06:17] LABS: ABG Base Excess 4.5 mmol/L; ABG HCO3 29 mmol/L (21-25); ABG Oxygen Saturation 96.8 % (94-97); ABG PCO2 47 mmHg (35-45); ABG PO2 110 mmHg (83-108); ABG TCO2 31 mmol/L (19-24); Allen Test Performed? Yes
[2022-09-05 07:06] LABS: Band Neutrophils % 14 %; Monocytes # (M) 0.11 k/uL (0-1.0); Neutrophils % (M) 82 %; Nucleated Red Blood Cells 2 /100 WBC (0-0); Total Cells Counted 200
[2022-09-05 07:07] LABS: Lymphocytes # (M) 0.42 k/uL (1.0-4.8); WBC 10.6 k/uL (3.8-10.6)
[2022-09-05 07:08] LABS: Polychromasia Present
[2022-09-05 07:12] LABS: Toxic Vacuolation Present
[2022-09-05] MEDS: ANIDULAFUNGIN 100 MG in SODIUM CHLORIDE 0.9% 100 ML IVPB SCH (08:34)
[2022-09-05] MEDS: levETIRAcetam IV 1,000 MG in SALINE 1 100ML.BAG IVPB SCH ×2 (08:34→21:34)
[2022-09-05] MEDS: PANTOPRAZOLE 40 MG/10 ML VIAL IVP SCH (08:34)
[2022-09-05] MEDS: metOLazone 5 MG TAB PO SCH ×2 (08:35→20:56)
[2022-09-05] MEDS: AMIODARONE 200 MG TAB PO SCH ×2 (08:35→20:56)
[2022-09-05 09:05] LABS: Glucose,Whole Blood 126 mg/dL (70-110)
[2022-09-05] MEDS: LACOSAMIDE IV 150 MG in SODIUM CHLORIDE 0.9% 50 ML IVPB SCH ×2 (09:09→20:56)
--- NOTE | 2022-09-05 09:17 | P.PN ---
Subjective Patient is seen in follow-up for acute kidney injury. Renal function improved. Nonoliguric. Intubated. Currently on Levophed and vasopressin. On Lasix drip. Receiving TPN. Family present at bedside. Vital signs - on vasopressor support. General: Resting in bed. HEENT: Intubated. LUNGS: Breath sounds decreased. HEART: Tachycardic. ABDOMEN: Distention noted. EXTREMITITES: 2+ edema. Objective - Vital Signs Vital signs: Vital Signs Temp 96.4 F L 09/05/22 04:00 Pulse 112 H 09/05/22 07:00 Resp 31 H 09/05/22 07:00 BP 128/47 09/02/22 15:00 Pulse Ox 99 09/05/22 07:00 FiO2 40 09/05/22 04:00 Intake & Output 09/04/22 09/05/22 09/05/22 18:59 06:59 18:59 Intake Total 2099.646 1770.432 200.082 Output Total 4605 4515 155 Balance -2505.354 -2744.568 45.082 Weight 130.2 kg 130.4 kg Intake: IV 883 816 18 0.9% @ KVO 150 180 15 Anidulafungin 100 mg In 100 Sodium Chloride 0.9% 100 ml @ 84 mls/hr IVPB DAILY [facility] Rx#:[id number] Ceftolozane/Tazobactam 0. 200 100 75 gm In Sodium Chloride 0.9% 100 ml @ 100 mls/hr IV Q8HR [facility] Rx#:[id number] Lacosamide IV 150 mg In 50 100 Sodium Chloride 0.9% 50 ml @ 100 mls/hr IVPB BID [facility] Rx#:[id number] Linezolid 600 mg In 300 Dextrose/Water 1 300ml. bag @ 150 mls/hr IVPB Q12H [facility] Rx#:[id number] Normal Saline: Pressure 33 36 3 Bag Phenytoin Sodium Inj 300 50 mg In Sodium Chloride 0.9 % 50 ml @ 80 mls/hr IVPB Q12H [facility] Rx#:[id number] Potassium Chloride 20 meq 200 In Water For Injection 1 100ml.bag @ 50 mls/hr IVPB Q2H [facility] Rx#: [id number] levETIRAcetam IV 1,000 mg 100 100 In Saline 1 100ml.bag @ 400 mls/hr IVPB Q12HR [facility] Rx#:[id number] Intake, IV Titration 436.646 174.432 117.082 Amount Furosemide 100 mg In 100 100 Sodium Chloride 0.9% 90 ml @ 10 MG/HR 10 mls/hr IV .Q10H [facility] Rx#: [id number] Norepinephrine 32 mg In 94.777 74.432 17.082 Sodium Chloride 0.9% 218 ml @ 0.5 MCG/KG/MIN 25. 547 mls/hr IV .Q9H48M [facility] Rx#:[id number] Potassium Chloride 20 meq 100 In Water For Injection 1 100ml.bag @ 50 mls/hr IVPB Q2H [facility] Rx#: [id number] Sodium Acetate 50 meq 96.417 Potassium Chloride 45 meq Magnesium Sulfate gm 0. 75 gm Calcium Gluconate 3 gm Sodium Chloride 4Meq/ ml Vial 40 meq In Amino Acids 5 %/Dextrose 20 % 1 ,000 ml @ 65 mls/hr IV . BY DURATION [facility] Rx#: [id number] Vasopressin 60 unit In 145.452 Sodium Chloride 0.9% 150 ml @ 0.04 UNITS/MIN 6.12 mls/hr IV .Q24H [facility] Rx#: [id number] TPN/PPN 780 780 65 TPN 780 780 65 Output: Gastric Drainage 125 Urine 3405 3565 155 Stool 1200 825 Other: Voiding Method Indwelling Catheter Indwelling Catheter ABP, PAP, CO, CI - Last Documented Arterial Blood Pressure 124/48 - Labs CBC & Chem 7: 09/05/22 05:07 09/05/22 05:07 Labs: Abnormal Lab Results - Last 24 Hours (Table) 09/04/22 09/04/22 09/04/22 Range/Units 13:39 17:31 20:45 RBC (3.80-5.40) m/uL Hgb (11.4-16.0) gm/dL Hct (34.0-46.0) % MCHC (31.0-37.0) g/dL RDW (11.5-15.5) % Plt Count (150-450) k/uL Neutrophils # (Manual) (1.3-7.7) k/uL Lymphocytes # (Manual) (1.0-4.8) k/uL Nucleated RBCs (0-0) /100 WBC ABG pCO2 (35-45) mmHg ABG pO2 (83-108) mmHg ABG HCO3 (21-25) mmol/L ABG Total CO2 (19-24) mmol/L Sodium (137-145) mmol/L Potassium (3.5-5.1) mmol/L Chloride (98-107) mmol/L BUN (7-17) mg/dL Glucose (74-99) mg/dL POC Glucose (mg/dL) 158 H 141 H 179 H (70-110) mg/dL AST (14-36) U/L Alkaline Phosphatase (38-126) U/L Total Protein (6.3-8.2) g/dL Albumin (3.5-5.0) g/dL 09/05/22 09/05/22 09/05/22 Range/Units 01:00 05:07 05:07 RBC 3.08 L (3.80-5.40) m/uL Hgb 8.2 L (11.4-16.0) gm/dL Hct 26.7 L (34.0-46.0) % MCHC 30.7 L (31.0-37.0) g/dL RDW 22.0 H (11.5-15.5) % Plt Count 66 L (150-450) k/uL Neutrophils # (Manual) 10.10 H (1.3-7.7) k/uL Lymphocytes # (Manual) 0.42 L (1.0-4.8) k/uL Nucleated RBCs 2 H (0-0) /100 WBC ABG pCO2 (35-45) mmHg ABG pO2 (83-108) mmHg ABG HCO3 (21-25) mmol/L ABG Total CO2 (19-24) mmol/L Sodium 131 L (137-145) mmol/L Potassium 3.2 L (3.5-5.1) mmol/L Chloride 92 L (98-107) mmol/L BUN 88 H (7-17) mg/dL Glucose 194 H (74-99) mg/dL POC Glucose (mg/dL) 210 H (70-110) mg/dL AST 50 H (14-36) U/L Alkaline Phosphatase 206 H (38-126) U/L Total Protein 4.3 L (6.3-8.2) g/dL Albumin 1.8 L (3.5-5.0) g/dL 09/05/22 09/05/22 09/05/22 Range/Units 05:13 06:02 09:03 RBC (3.80-5.40) m/uL Hgb (11.4-16.0) gm/dL Hct (34.0-46.0) % MCHC (31.0-37.0) g/dL RDW (11.5-15.5) % Plt Count (150-450) k/uL Neutrophils # (Manual) (1.3-7.7) k/uL Lymphocytes # (Manual) (1.0-4.8) k/uL Nucleated RBCs (0-0) /100 WBC ABG pCO2 47 H (35-45) mmHg ABG pO2 110 H (83-108) mmHg ABG HCO3 29 H (21-25) mmol/L ABG Total CO2 31 H (19-24) mmol/L Sodium (137-145) mmol/L Potassium (3.5-5.1) mmol/L Chloride (98-107) mmol/L BUN (7-17) mg/dL Glucose (74-99) mg/dL POC Glucose (mg/dL) 211 H 126 H (70-110) mg/dL AST (14-36) U/L Alkaline Phosphatase (38-126) U/L Total Protein (6.3-8.2) g/dL Albumin (3.5-5.0) g/dL Microbiology - Last 24 Hours (Table) 08/29/22 13:29 Blood Culture - Final Blood No Growth after 144 hours Assessment and Plan Plan: Assessment: 1. Acute kidney injury secondary to ATN secondary to septic shock. Baseline creatinine near 0.8 from June 2022 - peaked at 2.77 this admission -1.0 today. Nonoliguric. No hydronephrosis noted on CAT scan. 2. Septic shock secondary to UTI, fungemia and bacteremia. CAT scan done in 08/20/2022 showed pneumoperitoneum. On antibiotics/antifungal and vasopressor s upport. 3. Metabolic acidosis secondary to acute kidney injury. s/p bicarb drip. 4. Hypokalemia from diuresis. Being replaced. 5. Acute hypoxic respiratory failure. 6. A. fib with RVR. On po amiodarone. Cardiology following. 8. Hyponatremia secondary to acute kidney injury. Hypervolemic. 9. Hypocalcemia secondary to acute kidney injury. Improved. 10. Severe volume overload. 11. Status post tracheostomy this admission. Plan: Maintain Lasix drip. Maintain TPN. Wean FiO2 and vasopressors. Avoid nephrotoxins. Continue to monitor renal function and urine output. Prognosis poor. Continue to assess daily for need for renal replacement therapy. Stopped vit D.
[2022-09-05] MEDS: 1: MVI, ADULT NO.4 WITH VIT K 10 ML, TRACE (CONC-1ML/DOSE) 1 ML, SODIUM ACETATE 50 MEQ, IV SCH ×8 (09:22)
--- NOTE | 2022-09-05 09:30 | P.PN ---
Subjective Progress Note Date: 09/05/22 On today's evaluation of 09/04/2022, seeing the patient for a follow-up. The patient is a very complex case, an 87-year-old female patient remains in septic shock, unresponsive, on a mechanical ventilator, being followed up in the intensive care unit, still seeing several consultants regarding her complex situation. In summary, this patient has been on a mechanical ventilator for septic shock. During her course of her illness, the patient had various infections, as the patient's initial infection was related to Enterococcus faecalis and pseudomonas aeruginosa in her urine and subsequently the patient became septic and grew anaerobic gram-negative bacillus in the blood and this was thought to be related to an ischemic bowel and following that, the patient developed sputum positive for Ange and the blood culture was also positive for Ange albicans on 08/11/2022. Subsequent sputum from 08/19/2022 was positive for MRSA, blood culture was positive for VRE on 08/19/2022 and repeated blood culture from 08/23/2022 was again positive for VRE. The patient is currently on a combination of Zerbaxa , eraxis and Zyvox. This morning, the patient is not receiving any sedation. As mentioned, she is completely unresponsive. she was seen by neurology on multiple occasions. The patient's m ost recent CAT scan of the brain that was done on 09/03/2022 showed evidence of cerebral atrophy without any acute changes. EEG that was done on 09/01/2022 showed evidence of burst suppression discharges suggestive of nonconvulsive status Versus anoxia the brain. There is also background slowing suggestive of severe encephalopathy. The patient does not respond to any verbal. She does not identify any painful stimulation. She has been off sedation for quite some time and I do not to follow this patient back into 2022. She remains on a mechanical ventilator. Noted the patient had received a tracheostomy and currently is on assist-control mode of mechanical ventilation. She is currently on a rate of 30 with a tidal volume of 400 and FiO2 of 40% with a PEEP of 10. Chest x-ray showing dense consolidation of the lung bases bilaterally. Blood gas from today shows a pH of 7.39, pCO2 of 46, pO2 133. Hemodynamically, she is on pressors and the patient is on vasopressin physiologic data that 0.04 units and the patient is also on norepinephrine running at 0.14 mcg/kg/m. She remains on a running at 10 mg an hour. Overall fluid balance is -2.6 L over the past 24 hours and the patient is responding nicely to the diuretics. Note that the most recent blood culture that was done on 08/29/2022 showed no evidence of any microbial growth. There is evidence currently of 14.6 with a hemoglobin of 8.4 and a platelet count of 104. BUN is at 19 with a creatinine of 1.2 and a sodium level is at 129. AST is 46, ALT is 27, alkaline phosphatase 187. Blood sugars at 1:30 from this morning. She still has a triple-lumen catheter in her left subclavian vein. She also has not. Right femoral. Patient is on Levemir insulin 15 units at bedtime in addition to NovoLog based on a sliding scale coverage. Antibiotics will mentioned above. TPN is running at the rate of 65 mL an hour. She is on amiodarone 400 mg by mouth twice a day and her current cardiac rhythm is controlled atrial fibrillation. She is on no anticoagulants for now. In terms of bowel movement activity, the patient is producing large amounts of stool and she has a fecal management system in Place. The patient remains on laxatives. The patient is a combination of MiraLAX and lactulose. Most recent ammonia level is at 20. On today's evaluation of 09/05/2022, I'm seeing the patient for a follow-up. Clinically unchanged. Off sedation. Unresponsive. Still on the mechanical ventilator and the patient has been switched to no colds. Nevertheless, the wanted to continue ongoing treatment with the understanding that the patient carries a very poor prognosis because of septic shock and multisystem organ failure. For now, the patient is on no sedation. The patient is unresponsive. The patient is not following any commands. The patient has been off sedation since 08/30/2022. The patient remains on mechanical ventilator and she is essentially on the same ventilator setting. She is currently on assist- control mode of mechanical ventilation with a rate of 30, tidal volume of 400, FiO2 of 40% and a PEEP of 10. The blood gas from today showed a pH of 7.4 with a pCO2 of 47 and pO2 of 110. Chest x-ray from today is not done. The last chest x-ray was from 09/03/2022. We'll repeat another chest x-ray tomorrow. The last chest x-ray showed tracheostomy and NG tube being in good location. The patient continues to have bilateral airspace disease. Hemodynamically, the patient's current cardiac rhythm is controlled a chest fibrillation. The patient is on pressors. The patient is on a norepinephrine at a rate of 0.13 mcg/kg/m. The patient remains on Lasix drip at 10 mg an hour. The patient is also on vasopressin physiologic dose of 0.04 units an hour. The patient is also receiving TPN for nutritional support. TPN is running at 65 mL an hour. Overall fluid balance over the past 24 hours has been in the order of -5.2 L as the patient is being aggressively diuresed. Meanwhile, a trial of enteral feeding was given to this patient in the patient failed to tolerate enteral feeding. She has a fecal management system in Place and she is still having liquidy loose stools. The abdomen is nondistended. The response of 10.6 with a hemoglobin of 8.2 and a platelet count of 66 which is a drop compared to yesterday. In same time, the patient has a sodium of 131, potassium of 3.2, and a potassium level has been placed, BUN is at 88 with a creatinine of 1.0 and is using a 27. Patient has a AST of 50, ALT of 28, alkaline phosphatase of 206, and albumin is at 1.8 with a total protein of 4.3. Glucose at 126. No new cultures are not available the most recent culture of the blood was from 08/29/2002 and this was negative. Objective - Vital Signs Vital signs: Vital Signs Temp 96.4 F L 09/05/22 04:00 Pulse 112 H 09/05/22 07:00 Resp 31 H 09/05/22 07:00 BP 128/47 09/02/22 15:00 Pulse Ox 99 09/05/22 07:00 FiO2 40 09/05/22 04:00 Intake & Output 09/04/22 09/05/22 09/05/22 18:59 06:59 18:59 Intake Total 2099.646 1770.432 200.082 Output Total 4605 4515 155 Balance -2505.354 -2744.568 45.082 Weight 130.2 kg 130.4 kg Intake: IV 883 816 18 0.9% @ KVO 150 180 15 Anidulafungin 100 mg In 100 Sodium Chloride 0.9% 100 ml @ 84 mls/hr IVPB DAILY [facility] Rx#:[id number] Ceftolozane/Tazobactam 0. 200 100 75 gm In Sodium Chloride 0.9% 100 ml @ 100 mls/hr IV Q8HR [facility] Rx#:[id number] Lacosamide IV 150 mg In 50 100 Sodium Chloride 0.9% 50 ml @ 100 mls/hr IVPB BID [facility] Rx#:[id number] Linezolid 600 mg In 300 Dextrose/Water 1 300ml. bag @ 150 mls/hr IVPB Q12H [facility] Rx#:[id number] Normal Saline: Pressure 33 36 3 Bag Phenytoin Sodium Inj 300 50 mg In Sodium Chloride 0.9 % 50 ml @ 80 mls/hr IVPB Q12H [facility] Rx#:[id number] Potassium Chloride 20 meq 200 In Water For Injection 1 100ml.bag @ 50 mls/hr IVPB Q2H [facility] Rx#: [id number] levETIRAcetam IV 1,000 mg 100 100 In Saline 1 100ml.bag @ 400 mls/hr IVPB Q12HR [facility] Rx#:[id number] Intake, IV Titration 436.646 174.432 117.082 Amount Furosemide 100 mg In 100 100 Sodium Chloride 0.9% 90 ml @ 10 MG/HR 10 mls/hr IV .Q10H [facility] Rx#: [id number] Norepinephrine 32 mg In 94.777 74.432 17.082 Sodium Chloride 0.9% 218 ml @ 0.5 MCG/KG/MIN 25. 547 mls/hr IV .Q9H48M [facility] Rx#:[id number] Potassium Chloride 20 meq 100 In Water For Injection 1 100ml.bag @ 50 mls/hr IVPB Q2H [facility] Rx#: [id number] Sodium Acetate 50 meq 96.417 Potassium Chloride 45 meq Magnesium Sulfate gm 0. 75 gm Calcium Gluconate 3 gm Sodium Chloride 4Meq/ ml Vial 40 meq In Amino Acids 5 %/Dextrose 20 % 1 ,000 ml @ 65 mls/hr IV . BY DURATION [facility] Rx#: [id number] Vasopressin 60 unit In 145.452 Sodium Chloride 0.9% 150 ml @ 0.04 UNITS/MIN 6.12 mls/hr IV .Q24H [facility] Rx#: [id number] TPN/PPN 780 780 65 TPN 780 780 65 Output: Gastric Drainage 125 Urine 3405 3565 155 Stool 1200 825 Other: Voiding Method Indwelling Catheter Indwelling Catheter ABP, PAP, CO, CI - Last Documented Arterial Blood Pressure 124/48 - Exam GENERAL EXAM: Intubated, sedated, 87-year-old morbidly obese female HEAD: Normocephalic. EYES: Sluggish reaction of pupils, equal size. NOSE: Nasogastric tube secured in place. Clear with pink turbinates. THROAT: Oral endotracheal tube in place. NECK: No masses, no JVD. CHEST: No chest wall deformity. LUNGS: Equal air entry with crackles in the bilateral bases. CVS: S1 and S2 normal with no audible murmur, irregular rhythm. ABDOMEN: No hepatosplenomegaly, normal bowel sounds, no guarding or rigidity. SPINE: No scoliosis or deformity SKIN: No rashes CENTRAL NERVOUS SYSTEM: Sedated, tone is normal in all 4 extremities. EXTREMITIES: There is 1-2+ peripheral edema. Changes of chronic venous stasis. No clubbing, no cyanosis. Peripheral pulses are intact. - Labs CBC & Chem 7: 09/05/22 05:07 09/05/22 05:07 Labs: Abnormal Lab Results - Last 24 Hours (Table) 09/04/22 09/04/22 09/04/22 Range/Units 13:39 17:31 20:45 RBC (3.80-5.40) m/uL Hgb (11.4-16.0) gm/dL Hct (34.0-46.0) % MCHC (31.0-37.0) g/dL RDW (11.5-15.5) % Plt Count (150-450) k/uL Neutrophils # (Manual) (1.3-7.7) k/uL Lymphocytes # (Manual) (1.0-4.8) k/uL Nucleated RBCs (0-0) /100 WBC ABG pCO2 (35-45) mmHg ABG pO2 (83-108) mmHg ABG HCO3 (21-25) mmol/L ABG Total CO2 (19-24) mmol/L Sodium (137-145) mmol/L Potassium (3.5-5.1) mmol/L Chloride (98-107) mmol/L BUN (7-17) mg/dL Glucose (74-99) mg/dL POC Glucose (mg/dL) 158 H 141 H 179 H (70-110) mg/dL AST (14-36) U/L Alkaline Phosphatase (38-126) U/L Total Protein (6.3-8.2) g/dL Albumin (3.5-5.0) g/dL 09/05/22 09/05/22 09/05/22 Range/Units 01:00 05:07 05:07 RBC 3.08 L (3.80-5.40) m/uL Hgb 8.2 L (11.4-16.0) gm/dL Hct 26.7 L (34.0-46.0) % MCHC 30.7 L (31.0-37.0) g/dL RDW 22.0 H (11.5-15.5) % Plt Count 66 L (150-450) k/uL Neutrophils # (Manual) 10.10 H (1.3-7.7) k/uL Lymphocytes # (Manual) 0.42 L (1.0-4.8) k/uL Nucleated RBCs 2 H (0-0) /100 WBC ABG pCO2 (35-45) mmHg ABG pO2 (83-108) mmHg ABG HCO3 (21-25) mmol/L ABG Total CO2 (19-24) mmol/L Sodium 131 L (137-145) mmol/L Potassium 3.2 L (3.5-5.1) mmol/L Chloride 92 L (98-107) mmol/L BUN 88 H (7-17) mg/dL Glucose 194 H (74-99) mg/dL POC Glucose (mg/dL) 210 H (70-110) mg/dL AST 50 H (14-36) U/L Alkaline Phosphatase 206 H (38-126) U/L Total Protein 4.3 L (6.3-8.2) g/dL Albumin 1.8 L (3.5-5.0) g/dL 09/05/22 09/05/22 09/05/22 Range/Units 05:13 06:02 09:03 RBC (3.80-5.40) m/uL Hgb (11.4-16.0) gm/dL Hct (34.0-46.0) % MCHC (31.0-37.0) g/dL RDW (11.5-15.5) % Plt Count (150-450) k/uL Neutrophils # (Manual) (1.3-7.7) k/uL Lymphocytes # (Manual) (1.0-4.8) k/uL Nucleated RBCs (0-0) /100 WBC ABG pCO2 47 H (35-45) mmHg ABG pO2 110 H (83-108) mmHg ABG HCO3 29 H (21-25) mmol/L ABG Total CO2 31 H (19-24) mmol/L Sodium (137-145) mmol/L Potassium (3.5-5.1) mmol/L Chloride (98-107) mmol/L BUN (7-17) mg/dL Glucose (74-99) mg/dL POC Glucose (mg/dL) 211 H 126 H (70-110) mg/dL AST (14-36) U/L Alkaline Phosphatase (38-126) U/L Total Protein (6.3-8.2) g/dL Albumin (3.5-5.0) g/dL Microbiology - Last 24 Hours (Table) 08/29/22 13:29 Blood Culture - Final Blood No Growth after 144 hours Assessment and Plan Plan: Acute on chronic hypoxemic respiratory failure, status post intubation on August 10, and tracheostomy on August 25. Bilateral lower lobe pneumonia with persistent consolidation lung bases. Most recent sputum indicating MRSA and Ange from 08/19/2022 Septic shock of multiple sources. The patient had initially Enterococcus faecalis and Pseudomonas in her urine on 08/08/2022. The patient also had anaerobic gram-negative bacillus in her blood probably of an end of the abdominal source. Subsequently, the patient had systemic candidemia on 08/02 and VRE in her blood on 08/23/2022. She remains on pressors. She is currently on a norepinephrine at 0.14 mcg/kg/m. Unresponsive, CAT scan of the brain is negative, EEG showing severe enceph alopathy TPN nutritional support, failed EN Acute on chronic diastolic CHF. Abdominal sepsis/septic shock. Anion gap metabolic acidosis. Urinary tract infection secondary to Enterococcus faecalis and pseudomonas aeruginosa. Bacteremia secondary to vancomycin-resistant enterococci (VRE) Systemic candidiasis. The patient systemic candidemia confirmed by positive blood culture. Repeat blood culture was negative and the patient is current on Eraxis. Atrial fibrillation with RVR, rate controled for now Acute on chronic kidney disease. The creatinine is stable and the patient is currently on Lasix drip running at 10 mg an hour Recent history of coronavirus infection. History of aortic stenosis. Acute on chronic anemia. History of COPD. History of diastolic congestive heart failure. Morbid obesity. Diarrhea with fecal management system in Place Necrotic digits of the upper and lower extremities and the patient has gangrenous toes and fingers probably related to chronic sepsis, hypotension, and use of pressors Pressure ulcer on her coccyx Plan: Continue ventilator support , drop the PEEP to 6 Continue same antibiotic coverage Keep the fecal management system in place Continue TPN for nutritional support Continue Lasix drip at 10 mg an hour no sadation Add midodrine 10 mg tid Avoid sedatives for now Wound care Extremely poor prognosis. This has been discussed with the family on multiple occasions. Condition is critical and prognosis poor. We'll continue to follow. This evaluation was a on more than 30 minutes. Time with Patient: Greater than 30
[2022-09-05] MEDS: ALBUTEROL NEBULIZED 2.5 MG/3 ML INHALATION SCH ×4 (09:37→20:54)
[2022-09-05] MEDS: IPRATROPIUM 0.5 MG/2.5 ML NEBU INHALATION SCH ×4 (09:38→20:54)
--- NOTE | 2022-09-05 09:56 | XR ---
EXAMINATION TYPE: XR chest 1V portable DATE OF EXAM: 09/05/2022 COMPARISON: 09/03/2022 HISTORY: Shortness of breath TECHNIQUE: Single frontal view of the chest is obtained. FINDINGS: Tracheostomy tube with the tip overlying the proximal thoracic vertebral column. Central l ine and NG tube stable. Bilateral infiltrate and pleural effusion. Hypertrophic degenerative changes spine. Atherosclerotic change aorta. No pneumothorax. Underlying COPD suspected. Lucency in the mid a bdomen could be artifactual. Postsurgical change overlying the cervical spine. IMPRESSION: 1. NG and tracheostomy tube appear in good position with persistent bilateral infiltrate and pleural effusion superimposed on a background of COPD. 2. Lucencies in the left upper abdomen may be artifactual given positioning correlate for abdominal s ymptoms. If concern for acute abdomen correlating with abdominal x-ray.
[2022-09-05] MEDS: FAT EMULSION 20% 250 ML in EMPTY BAG 1 BAG IV SCH (11:00)
--- NOTE | 2022-09-05 11:10 | P.PN ---
Subjective Progress Note Date: 09/04/22 09/04/2022: Patient was seen for a follow-up. Patient's daughter was present. Patient was seen by Dr. Edouard Peres in the previous 7 days. Please refer to his notes for details. Patient at present on Levophed 0.12 g, and vasopressin 0.04 g. Patient is of Versed and Ativan since 08/30/2022. There is no obvious physical seizure activity. Patient had numerous EEGs, which continues to show subclinical status. Patient's family believes that she is responding, as her chin moved slightly and she is slightly moves her eyes with her lids closed. She may still slightly open her eyes, which appears reflexive rather than involving treat appears. No seizure-like activity noticed at this time either. Patient continues to have severe blackening of the fingertips and the toes, and some sloughing of the skin of the toes. 08/27/2022: Patient was seen for a follow-up. Patient continues to be significantly encephalopathic. No obvious shoulder twitching on the right side was observed. Patient currently on Versed drip 7 mg per hour. Also on other medications as mentioned from yesterday. Patient has tracheostomy. Awaiting PEG placement. Patient currently on Levophed at 36 mcg/m(0.25 g microgram per minute), and vasopressin 0.02 units per minute. 08/26/2022: Patient was seen for a follow-up. Patient is clinically unchanged. However the seizure-like activity involving right shoulder has completely resolved. Patient currently on Versed 7 mg/h drip. Also on amiodarone, norepinephrine 0.47 mcg/mg per hour, vasopressin 0.04 units per minute. Also on bicarbonate drip. Patient has not had PEG tube placed yet. Patient's believes that when the PEG tube is placed, she will get nutrition and she will get better. Also discussed with patient's daughter and her , who was sitting in the waiting area. Patient's also believes the seizures are related to issues with the lower back region. 08/25/2022: Patient was seen for a follow-up. Patient's and patient's daughter were both present. Patient continues to be comatose. She has intermittent rhythmic twitching of the right shoulder. Patient is already on high dose Keppra, Vimpat adjusted to her renal functions, and Versed drip. Patient already has received Dilantin 1 g IV PB and she is still twitching in the right shoulder. Dilantin level came as 4.5. Patient will receive another loading dose of Dilantin 1 g. Target Dilantin level 12-20. Patient's toes are getting more dusky. Patient has developed some blisters, but that happened before she received Dilantin, therefore not related to Dilantin ALLERGY. Patie nt has generalized anasarca. 08/24/2022: Patient was seen for a follow-up. Patient is undergoing EEG at this time. Patient continues to have PLEDS. Patient was given Ativan 2 mg without much improvement, then repeated at another 2 mg Ativan. Patient subsequently received Versed 5 mg IV push without improvement, started on Versed drip 5 mg per hour. Patient states on pressors with vasopressin and Levophed. Patient continues to be comatose. Occasional twitching of the right shoulder noticed. I had discussed case with Dr. Hagen yesterday after he reported abnormal prolonged EEG about transfer patient to [facility], but he mentioned that beds were not available. 08/23/2022: Patient was seen for a follow-up. Patient is intubated, not on any sedation. She is on full pressors with Levophed and vasopressin. Also on 3 antibiotics, anti-seizure medications including Keppra and Vimpat. Patient had sporadic seizure-like activity with facial twitching. No definite arm twitching noted. Episode lasted for about 30 minutes. At present there is no twitching noticeable. Patient's and grandchildren were present today. 08/22/2022: Patient was seen for a follow-up. Patient's daughter was also present today. Patient recently had temperature of 100.3. About an hour prior to spiking temperature, patient had some facial twitching, with jaw opening and closing, that lasted for half an hour. No upper extremity movement was noted at that time. Patient continues to be on Keppra 750 mg twice a day. Patient continues to be on high-dose pressors. Patient at present is no code, but full medical treatment. 08/21/2022: Patient initially seen by Dr. Edouard Peres. Please refer to his note for details. Patient is an 87-year-old female with altered mental status. Patient has septic encephalopathy. Patient had a seizure-like activity yesterday at 1:15 PM with head jerking and left arm jerking. Patient was given Ativan 4 mg, and the seizure-like stopped. Patient was given a loading dose of Keppra 1000 mg IV and then maintained on 500 mg twice a day. Patient had again seizure-like activity at 3 AM lasted for 45 minutes and then 5 AM and patient was given another loading dose of 500 mg Keppra. Nurse called me today at around 7:30 AM. It lasted for 20-30 minutes. Patient was again given Valium 4 mg in the seizure- like activity resolved. Patient was started on Vimpat 100 mg twice a day IV PB. EEG was performed today, which was abnormal sleep EEG due to background slowing of moderate degree. Some sharply contoured waves were seen in the left parietal region. No clear-cut epileptiform activity was seen. Objective - Vital Signs Vital signs: Vital Signs Temp 97.0 F L 09/04/22 16:00 Pulse 98 09/04/22 19:00 Resp 31 H 09/04/22 19:00 BP 128/47 09/02/22 15:00 Pulse Ox 99 09/04/22 19:00 FiO2 40 09/04/22 16:00 Intake & Output 09/04/22 09/04/22 09/05/22 06:59 18:59 06:59 Intake Total 2659.413 2099.646 87.539 Output Total 3050 4605 475 Balance -390.587 -2505.354 -387.461 Weight 130.2 kg 130.2 kg Intake: IV 601 883 18 0.9% @ KVO 165 150 15 Anidulafungin 100 mg In 100 Sodium Chloride 0.9% 100 ml @ 84 mls/hr IVPB DAILY [facility] Rx#:[id number] Ceftolozane/Tazobactam 0. 100 200 75 gm In Sodium Chloride 0.9% 100 ml @ 100 mls/hr IV Q8HR [facility] Rx#:[id number] Lacosamide IV 150 mg In 50 50 Sodium Chloride 0.9% 50 ml @ 100 mls/hr IVPB BID [facility] Rx#:[id number] Normal Saline: Pressure 36 33 3 Bag Phenytoin Sodium Inj 300 50 50 mg In Sodium Chloride 0.9 % 50 ml @ 80 mls/hr IVPB Q12H [facility] Rx#:[id number] Potassium Chloride 20 meq 100 In Water For Injection 1 100ml.bag @ 50 mls/hr IVPB Q2H [facility] Rx#: [id number] Potassium Chloride 20 meq 200 In Water For Injection 1 100ml.bag @ 50 mls/hr IVPB Q2H [facility] Rx#: [id number] levETIRAcetam IV 1,000 mg 100 100 In Saline 1 100ml.bag @ 400 mls/hr IVPB Q12HR [facility] Rx#:[id number] Intake, IV Titration 1278.413 436.646 4.539 Amount Furosemide 100 mg In 100 100 Sodium Chloride 0.9% 90 ml @ 10 MG/HR 10 mls/hr IV .Q10H [facility] Rx#: [id number] Norepinephrine 32 mg In 94.413 94.777 4.539 Sodium Chloride 0.9% 218 ml @ 0.5 MCG/KG/MIN 25. 547 mls/hr IV .Q9H48M [facility] Rx#:[id number] Sodium Acetate 50 meq 1084 Potassium Chloride 40 meq Magnesium Sulfate gm 0. 75 gm Calcium Gluconate 3 gm Sodium Chloride 4Meq/ ml Vial 30 meq In Amino Acids 5 %/Dextrose 20 % 1 ,000 ml @ 65 mls/hr IV . BY DURATION [facility] Rx#: [id number] Sodium Acetate 50 meq 96.417 Potassium Chloride 45 meq Magnesium Sulfate gm 0. 75 gm Calcium Gluconate 3 gm Sodium Chloride 4Meq/ ml Vial 40 meq In Amino Acids 5 %/Dextrose 20 % 1 ,000 ml @ 65 mls/hr IV . BY DURATION [facility] Rx#: [id number] Vasopressin 60 unit In 145.452 Sodium Chloride 0.9% 150 ml @ 0.04 UNITS/MIN 6.12 mls/hr IV .Q24H [facility] Rx#: [id number] TPN/PPN 780 780 65 TPN 780 780 65 Output: Urine 3050 3405 475 Stool 1200 Other: Voiding Method Indwelling Catheter Indwelling Catheter ABP, PAP, CO, CI - Last Documented Arterial Blood Pressure 135/54 - Exam Patient is an elderly female, who is comatose. Patient is not on any sedation. Patient is off Ativan/Versed since 08/30/2022. Patient continues to be on pressors. Patient does not respond to painful stimuli or calling out loudly. No focal seizure noted involving right shoulder. No twitching of the facial region. Pupils are equal, round and reacting bilaterally. Oculocephalics are absent, corneals absent. Reflexes are almost absent. Patient has significant peripheral edema. Patient's fingers and toes are dusky, cyanotic, now turning black. Abdomen is soft, appears distended. Patient not able to tolerate NGT feeds. She did have some bowel movement. - Labs CBC & Chem 7: 09/05/22 05:07 09/05/22 05:07 Labs: Abnormal Lab Results - Last 24 Hours (Table) 09/03/22 09/04/22 09/04/22 Range/Units 21:09 01:00 04:23 WBC (3.8-10.6) k/uL RBC (3.80-5.40) m/uL Hgb (11.4-16.0) gm/dL Hct (34.0-46.0) % RDW (11.5-15.5) % Plt Count (150-450) k/uL Neutrophils # (Manual) (1.3-7.7) k/uL Lymphocytes # (Manual) (1.0-4.8) k/uL Nucleated RBCs (0-0) /100 WBC ABG pCO2 (35-45) mmHg ABG pO2 (83-108) mmHg ABG HCO3 (21-25) mmol/L ABG Total CO2 (19-24) mmol/L ABG O2 Saturation (94-97) % Sodium (137-145) mmol/L Potassium (3.5-5.1) mmol/L Chloride (98-107) mmol/L BUN (7-17) mg/dL Creatinine (0.52-1.04) mg/dL Glucose (74-99) mg/dL POC Glucose (mg/dL) 193 H 177 H 187 H (70-110) mg/dL Calcium (8.4-10.2) mg/dL AST (14-36) U/L Alkaline Phosphatase (38-126) U/L Total Protein (6.3-8.2) g/dL Albumin (3.5-5.0) g/dL 03/06/23 03/06/23 03/06/23 Range/Units 04:25 04:25 05:31 WBC 14.6 H (3.8-10.6) k/uL RBC 3.11 L (3.80-5.40) m/uL Hgb 8.4 L (11.4-16.0) gm/dL Hct 26.9 L (34.0-46.0) % RDW 21.6 H (11.5-15.5) % Plt Count 104 L (150-450) k/uL Neutrophils # (Manual) 13.80 H (1.3-7.7) k/uL Lymphocytes # (Manual) 0.29 L (1.0-4.8) k/uL Nucleated RBCs 1 H (0-0) /100 WBC ABG pCO2 46 H (35-45) mmHg ABG pO2 133 H (83-108) mmHg ABG HCO3 28 H (21-25) mmol/L ABG Total CO2 30 H (19-24) mmol/L ABG O2 Saturation 97.6 H (94-97) % Sodium 129 L (137-145) mmol/L Potassium 3.1 L (3.5-5.1) mmol/L Chloride 92 L (98-107) mmol/L BUN 90 H (7-17) mg/dL Creatinine 1.20 H (0.52-1.04) mg/dL Glucose 173 H (74-99) mg/dL POC Glucose (mg/dL) (70-110) mg/dL Calcium 8.2 L (8.4-10.2) mg/dL AST 46 H (14-36) U/L Alkaline Phosphatase 187 H (38-126) U/L Total Protein 4.4 L (6.3-8.2) g/dL Albumin 1.8 L (3.5-5.0) g/dL 09/04/22 09/04/22 09/04/22 Range/Units 08:23 13:39 17:31 WBC (3.8-10.6) k/uL RBC (3.80-5.40) m/uL Hgb (11.4-16.0) gm/dL Hct (34.0-46.0) % RDW (11.5-15.5) % Plt Count (150-450) k/uL Neutrophils # (Manual) (1.3-7.7) k/uL Lymphocytes # (Manual) (1.0-4.8) k/uL Nucleated RBCs (0-0) /100 WBC ABG pCO2 (35-45) mmHg ABG pO2 (83-108) mmHg ABG HCO3 (21-25) mmol/L ABG Total CO2 (19-24) mmol/L ABG O2 Saturation (94-97) % Sodium (137-145) mmol/L Potassium (3.5-5.1) mmol/L Chloride (98-107) mmol/L BUN (7-17) mg/dL Creatinine (0.52-1.04) mg/dL Glucose (74-99) mg/dL POC Glucose (mg/dL) 130 H 158 H 141 H (70-110) mg/dL Calcium (8.4-10.2) mg/dL AST (14-36) U/L Alkaline Phosphatase (38-126) U/L Total Protein (6.3-8.2) g/dL Albumin (3.5-5.0) g/dL Microbiology - Last 24 Hours (Table) 08/29/22 13:29 Blood Culture - Final Blood No Growth after 144 hours Assessment and Plan Assessment: * 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 On keppra, Vimpat and Dilantin. Also has tried IV versed and IV ativan without improvement. IV sedation has been off since 08/30/22. * Altered mental status multifactorial as mentioned below. Patient seizure and it seems partial status, septic encephalopathy, Iversed and Ativan--off since 08/30/22 close to 11ish AM. Also has some component of metabolic encephalopathy and hepatic encephalopathy. * Probable perforated viscus with pneumoperitoneum. * Septicemia, with leukocytosis and blood culture persistently positive with enterococcus faecium. Blood cultures positive as of 08/23/2022. White cells slightly worse today 21,000. * Hepatic encephalopathy with initial elevated ammonia 214, repeat 210, and yesterday is 171. * Septic shock requiring high-dose pressors and seems has urinary tract infection with urine culture positive for Enterococcus faecalis and P seudomonas aeruginosa as well as systemic candidiasis Atrial fibrillation on eliquis (which has hx of afib) , currently on hold. Acute on chronic hypoxemic respiratory failure secondary to diastolic congestive heart failure requiring intubation mechanical ventilation Acute on chronic kidney disease History of TIAs/stroke History of coronary artery disease with stent Hypertension Hyperlipidemia Diabetes mellitus Anemia Hypocalcemia, resolved Plan: * Clinically it appears partial status has resolved. However EEG continues to show subclinical partial status. Patient is off Versed and Ativan drip. She continues to be on 3 antiepileptic medications as mentioned below. Patient's daughter believes including her dad, that patient is showing some meaningful response, which I doubt. Family does not want any more EEGs at this time. They're comfortable as long as patient is not exhibiting overt seizure activity. * No focal twitches noticed at this time. * Patient already on high dose Vimpat 150 mg twice a day, Keppra 1000 mg twice a day (both of them adjusted for current renal functions) and Dilantin 300 mg twice a day. We will check Dilantin level. Keppra level 68.9 (3-60). Cannot give Depakote because of hyperammonemia. * Continue Ativan 1-2 mg every 4 hours when necessary seizure. * Prolonged 2.5 hours EEG on 08/24/2022 was abnormal with evidence of runs of 1 Hz LPDs plus there was lateralized periodic discharges, sharp and slow and poly-sharp and slow waves over the left parietal region with spread more anteriorly. There are also some discharges semi-periodic LPDs over the right posterior quadrants. Exact cause remains uncertain. * Repeat CT head 09/03/2022 revealed cerebral atrophy. No acute intracranial abnormality. I personally reviewed CT head, and agreed no acute process. * ID is also on board. Patient currently on Eraxis, Zerbaxa, Zyvox. Per ID, patient is already covered well for meningitis. * Patient's initial Ammonia was 214. Recheck ammonia in a.m. Patient on lactulose. * CT abdomen revealed possibility of perforated viscus. Surgery on board. Patient was considered not a candidate for surgery because of hemodynamic instability. * Patient is still on pressors. Patient is showing blackening of the digits of her hands and feet. * Hypocalcemia, resolved. * We'll defer the rest of medical management to primary and ICU team * The patient condition is very critical. Prognosis appears poor at this time for meaningful recovery. Patient's daughter is aware of the prognosis. * Plan discussed with the patient's family.
[2022-09-05 11:54] LABS: Glucose,Whole Blood 138 mg/dL (70-110)
[2022-09-05] MEDS: MIDODRINE 5 MG TAB PO SCH ×2 (12:30→18:39)
[2022-09-05] MEDS ORDERED: POTASSIUM CHLORIDE 20 MEQ in WATER FOR INJECTION 1 100ML.BAG IVPB STA (13:06)
--- NOTE | 2022-09-05 13:14 | P.PN ---
Subjective Progress Note Date: 09/05/22 CHIEF COMPLAINT: Abdominal pain HISTORY OF PRESENT ILLNESS: Patient remains in the ICU and on mechanical ventilation. Patient had tracheostomy placed on 08/25/2022. Patient was unable to have PEG tube placed because light reflex was not visualized during EGD. Patient remains on TPN for nutrition support. She was unable to tolerate tube feeds via NG tube. Remains on vasopressors. Afebrile. WBC has normalized at 10.6 Patient seen and examined with Dr. Head PHYSICAL EXAM: VITAL SIGNS: Reviewed GENERAL: On mechanical ventilation. Head is atraumatic, normocephalic. No nasal drainage. NECK: Tracheostomy site clean dry and intact CHEST: Non-labored respirations and equal bilateral excursions. CARDIOVASCULAR: Palpable 2+ radial pulses. ABDOMEN: distended. MUSCULOSKELETAL: No clubbing or cyanosis. ASSESSMENT: 1. Acute on chronic hypoxic respiratory failure status post tracheostomy placement 2. Severe protein calorie malnutrition 3. Colon perforation 4. Sepsis PLAN: -Keep NG tube to suction -TPN for nutrition support -Continue supportive care -Continue ICU Physician Buggyman note has been reviewed by physician. Signing provider agrees with the documented findings, assessment, and plan of care. Objective - Vital Signs Vital signs: Vital Signs Temp 98.2 F 09/05/22 12:00 Pulse 112 H 09/05/22 12:45 Resp 30 H 09/05/22 12:45 BP 128/47 09/02/22 15:00 Pulse Ox 100 09/05/22 12:30 FiO2 40 09/05/22 12:16 Intake & Output 09/04/22 09/05/22 09/05/22 18:59 06:59 18:59 Intake Total 2099.646 1770.432 990.082 Output Total 4605 4515 1025 Balance -2505.354 -2744.568 -34.918 Weight 130.2 kg 130.4 kg Intake: IV 883 816 808 0.9% @ KVO 150 180 90 Anidulafungin 100 mg In 100 100 Sodium Chloride 0.9% 100 ml @ 84 mls/hr IVPB DAILY [facility] Rx#:[id number] Ceftolozane/Tazobactam 0. 200 100 100 75 gm In Sodium Chloride 0.9% 100 ml @ 100 mls/hr IV Q8HR [facility] Rx#:[id number] Lacosamide IV 150 mg In 50 100 50 Sodium Chloride 0.9% 50 ml @ 100 mls/hr IVPB BID [facility] Rx#:[id number] Linezolid 600 mg In 300 300 Dextrose/Water 1 300ml. bag @ 150 mls/hr IVPB Q12H [facility] Rx#:[id number] Normal Saline: Pressure 33 36 18 Bag Phenytoin Sodium Inj 300 50 50 mg In Sodium Chloride 0.9 % 50 ml @ 80 mls/hr IVPB Q12H [facility] Rx#:[id number] Potassium Chloride 20 meq 200 In Water For Injection 1 100ml.bag @ 50 mls/hr IVPB Q2H [facility] Rx#: [id number] levETIRAcetam IV 1,000 mg 100 100 100 In Saline 1 100ml.bag @ 400 mls/hr IVPB Q12HR [facility] Rx#:[id number] Intake, IV Titration 436.646 174.432 117.082 Amount Furosemide 100 mg In 100 100 Sodium Chloride 0.9% 90 ml @ 10 MG/HR 10 mls/hr IV .Q10H [facility] Rx#: [id number] Norepinephrine 32 mg In 94.777 74.432 17.082 Sodium Chloride 0.9% 218 ml @ 0.5 MCG/KG/MIN 25. 547 mls/hr IV .Q9H48M [facility] Rx#:[id number] Potassium Chloride 20 meq 100 In Water For Injection 1 100ml.bag @ 50 mls/hr IVPB Q2H [facility] Rx#: [id number] Sodium Acetate 50 meq 96.417 Potassium Chloride 45 meq Magnesium Sulfate gm 0. 75 gm Calcium Gluconate 3 gm Sodium Chloride 4Meq/ ml Vial 40 meq In Amino Acids 5 %/Dextrose 20 % 1 ,000 ml @ 65 mls/hr IV . BY DURATION [facility] Rx#: [id number] Vasopressin 60 unit In 145.452 Sodium Chloride 0.9% 150 ml @ 0.04 UNITS/MIN 6.12 mls/hr IV .Q24H [facility] Rx#: [id number] Tube Feeding 0 TPN/PPN 780 780 65 TPN 780 780 65 Other 0 Output: Gastric Drainage 125 Urine 3405 3565 1025 Stool 1200 825 Other: Voiding Method Indwelling Catheter Indwelling Catheter Indwelling Catheter ABP, PAP, CO, CI - Last Documented Arterial Blood Pressure 123/54 - Labs CBC & Chem 7: 09/05/22 05:07 09/05/22 11:50 Labs: Abnormal Lab Results - Last 24 Hours (Table) 09/04/22 09/04/22 09/04/22 Range/Units 13:39 17:31 20:45 RBC (3.80-5.40) m/uL Hgb (11.4-16.0) gm/dL Hct (34.0-46.0) % MCHC (31.0-37.0) g/dL RDW (11.5-15.5) % Plt Count (150-450) k/uL Neutrophils # (Manual) (1.3-7.7) k/uL Lymphocytes # (Manual) (1.0-4.8) k/uL Nucleated RBCs (0-0) /100 WBC ABG pCO2 (35-45) mmHg ABG pO2 (83-108) mmHg ABG HCO3 (21-25) mmol/L ABG Total CO2 (19-24) mmol/L Sodium (137-145) mmol/L Potassium (3.5-5.1) mmol/L Chloride (98-107) mmol/L BUN (7-17) mg/dL Glucose (74-99) mg/dL POC Glucose (mg/dL) 158 H 141 H 179 H (70-110) mg/dL AST (14-36) U/L Alkaline Phosphatase (38-126) U/L Total Protein (6.3-8.2) g/dL Albumin (3.5-5.0) g/dL 09/05/22 09/05/22 09/05/22 Range/Units 01:00 05:07 05:07 RBC 3.08 L (3.80-5.40) m/uL Hgb 8.2 L (11.4-16.0) gm/dL Hct 26.7 L (34.0-46.0) % MCHC 30.7 L (31.0-37.0) g/dL RDW 22.0 H (11.5-15.5) % Plt Count 66 L (150-450) k/uL Neutrophils # (Manual) 10.10 H (1.3-7.7) k/uL Lymphocytes # (Manual) 0.42 L (1.0-4.8) k/uL Nucleated RBCs 2 H (0-0) /100 WBC ABG pCO2 (35-45) mmHg ABG pO2 (83-108) mmHg ABG HCO3 (21-25) mmol/L ABG Total CO2 (19-24) mmol/L Sodium 131 L (137-145) mmol/L Potassium 3.2 L (3.5-5.1) mmol/L Chloride 92 L (98-107) mmol/L BUN 88 H (7-17) mg/dL Glucose 194 H (74-99) mg/dL POC Glucose (mg/dL) 210 H (70-110) mg/dL AST 50 H (14-36) U/L Alkaline Phosphatase 206 H (38-126) U/L Total Protein 4.3 L (6.3-8.2) g/dL Albumin 1.8 L (3.5-5.0) g/dL 09/05/22 09/05/22 09/05/22 Range/Units 05:13 06:02 09:03 RBC (3.80-5.40) m/uL Hgb (11.4-16.0) gm/dL Hct (34.0-46.0) % MCHC (31.0-37.0) g/dL RDW (11.5-15.5) % Plt Count (150-450) k/uL Neutrophils # (Manual) (1.3-7.7) k/uL Lymphocytes # (Manual) (1.0-4.8) k/uL Nucleated RBCs (0-0) /100 WBC ABG pCO2 47 H (35-45) mmHg ABG pO2 110 H (83-108) mmHg ABG HCO3 29 H (21-25) mmol/L ABG Total CO2 31 H (19-24) mmol/L Sodium (137-145) mmol/L Potassium (3.5-5.1) mmol/L Chloride (98-107) mmol/L BUN (7-17) mg/dL Glucose (74-99) mg/dL POC Glucose (mg/dL) 211 H 126 H (70-110) mg/dL AST (14-36) U/L Alkaline Phosphatase (38-126) U/L Total Protein (6.3-8.2) g/dL Albumin (3.5-5.0) g/dL 09/05/22 Range/Units 11:52 RBC (3.80-5.40) m/uL Hgb (11.4-16.0) gm/dL Hct (34.0-46.0) % MCHC (31.0-37.0) g/dL RDW (11.5-15.5) % Plt Count (150-450) k/uL Neutrophils # (Manual) (1.3-7.7) k/uL Lymphocytes # (Manual) (1.0-4.8) k/uL Nucleated RBCs (0-0) /100 WBC ABG pCO2 (35-45) mmHg ABG pO2 (83-108) mmHg ABG HCO3 (21-25) mmol/L ABG Total CO2 (19-24) mmol/L Sodium (137-145) mmol/L Potassium (3.5-5.1) mmol/L Chloride (98-107) mmol/L BUN (7-17) mg/dL Glucose (74-99) mg/dL POC Glucose (mg/dL) 138 H (70-110) mg/dL AST (14-36) U/L Alkaline Phosphatase (38-126) U/L Total Protein (6.3-8.2) g/dL Albumin (3.5-5.0) g/dL Microbiology - Last 24 Hours (Table) 08/29/22 13:29 Blood Culture - Final Blood No Growth after 144 hours
[2022-09-05] MEDS: CEFTOLOZANE/TAZOBACTAM 1.5 GM in SODIUM CHLORIDE 0.9% 100 ML IV SCH ×2 (15:05→22:59)
--- NOTE | 2022-09-05 15:16 | CDI ---
Documentation Clarification Form Date: 09/05/2022 2:20:49 PM From: Puja Arzate RN CCDS Phone: [phone] Admit Date: 08/08/2022 7:25:00 PM Patient Name: Concepcion Newberry Visit Number: [id number] Discharge Date: ATTENTION: The Clinical Documentation Specialists (CDI) and [facility] Coding Staff appreciate your assistance in clarifying documentation. Please respond to the clarification below the line at the bottom and electronically sign. The CDI & [facility] Coding staff will review the response and follow-up if needed. Please note: Queries are made part of the Legal Health Record. If you have any questions, please contact the author of this message via ITS. Dr. Phan Hartman A Deep Tissue Pressure Injury on Left Heel, is documented by Nursing in wound assessment on 08/31. Based on this information and the findings below, is there an additional diagnosis that is clinically appropriate for this patient? History/Risk Factors: 87 year-old female has been admitted since 08/08/22 for Encephalopathy, Respiratory Failure, Severe Sepsis with Septic Shock and Urinary Tract Infection. Medical History: CKD III, Atrial Fibrillation, CHF and HTN. 08/09/22, H&P. Clinical Indicators: Location: Left Heel Wound description: Deep Tissue Pressure Injury Treatment: Pillows elevating heels, Specialty bed, Turn every two hours and Absorbent Under pad checking hourly Is there an additional diagnosis that is clinically appropriate for this patient? [ x ] Left Heel Deep tissue injury [ ] Other condition, please specify [ ] Unable to determine Clinical Definitions: Stage 1 Pressure Ulcer: intact skin, non-blanching redness of local area Stage 2 Pressure Ulcer: Partial thickness, loss of dermis, pink wound bed Stage 3 Pressure Ulcer: Full thickness tissue loss Stage 4 Pressure Ulcer: Full thickness tissue loss with exposed bone, tendon, or muscle. Unstageable pressure ulcer: Full thickness tissue loss in which the base of the ulcer is covered by slough (yellow, tatum, [place], green or brown) and/or eschar (tatum, brown or black) in the wound bed. (Template Last Revised: August 2020) _ stage 3 pressure ulcer with abscess MTDD
[2022-09-05 18:34] LABS: Glucose,Whole Blood 220 mg/dL (70-110)
[2022-09-05] MEDS: VASOPRESSIN 60 UNIT in SODIUM CHLORIDE 0.9% 150 ML IV SCH (18:41)
[2022-09-05 20:52] LABS: Glucose,Whole Blood 193 mg/dL (70-110)
[2022-09-05] MEDS: INSULIN DETEMIR (LEVEMIR) 100 UNIT/ML SYR SQ SCH (20:56)
--- NOTE | 2022-09-05 21:31 | P.PN ---
Subjective Progress Note Date: 09/05/22 Principal diagnosis: Sepsis/septic shock Patient is a 87-year-old female with multiple comorbidities presented to the hospital with a syncopal episode weakness subsequently hypotension, sepsis requiring transfer to the ICU and intubation on the vent. She patient did have a CT of abdominal pelvis completed on 08/20/2022 with evidence of pneumoperitoneum Gen. surgery discussed with the family currently being treated medically On today's evaluation that is 09/05/2022, the patient remains to be afebrile, the patient is requiring less pressor support to maintain her blood pressure per the nursing staff, the patient FiO2 is stable at 40 %, no purulent secretions throu gh the ET , patient did have NG to suction, tube feeds has been put on hold , patient did have a fecal management system for her diarrhea Objective - Vital Signs Vital signs: Vital Signs Temp 96.4 F L 09/05/22 04:00 Pulse 101 H 09/05/22 09:38 Resp 30 H 09/05/22 09:38 BP 128/47 09/02/22 15:00 Pulse Ox 97 09/05/22 09:30 FiO2 40 09/05/22 09:30 Intake & Output 09/04/22 09/05/22 09/05/22 18:59 06:59 18:59 Intake Total 2099.646 1770.432 200.082 Output Total 4605 4515 155 Balance -2505.354 -2744.568 45.082 Weight 130.2 kg 130.4 kg Intake: IV 883 816 18 0.9% @ KVO 150 180 15 Anidulafungin 100 mg In 100 Sodium Chloride 0.9% 100 ml @ 84 mls/hr IVPB DAILY [facility] Rx#:[id number] Ceftolozane/Tazobactam 0. 200 100 75 gm In Sodium Chloride 0.9% 100 ml @ 100 mls/hr IV Q8HR [facility] Rx#:[id number] Lacosamide IV 150 mg In 50 100 Sodium Chloride 0.9% 50 ml @ 100 mls/hr IVPB BID [facility] Rx#:[id number] Linezolid 600 mg In 300 Dextrose/Water 1 300ml. bag @ 150 mls/hr IVPB Q12H [facility] Rx#:[id number] Normal Saline: Pressure 33 36 3 Bag Phenytoin Sodium Inj 300 50 mg In Sodium Chloride 0.9 % 50 ml @ 80 mls/hr IVPB Q12H [facility] Rx#:[id number] Potassium Chloride 20 meq 200 In Water For Injection 1 100ml.bag @ 50 mls/hr IVPB Q2H [facility] Rx#: [id number] levETIRAcetam IV 1,000 mg 100 100 In Saline 1 100ml.bag @ 400 mls/hr IVPB Q12HR [facility] Rx#:[id number] Intake, IV Titration 436.646 174.432 117.082 Amount Furosemide 100 mg In 100 100 Sodium Chloride 0.9% 90 ml @ 10 MG/HR 10 mls/hr IV .Q10H [facility] Rx#: [id number] Norepinephrine 32 mg In 94.777 74.432 17.082 Sodium Chloride 0.9% 218 ml @ 0.5 MCG/KG/MIN 25. 547 mls/hr IV .Q9H48M [facility] Rx#:[id number] Potassium Chloride 20 meq 100 In Water For Injection 1 100ml.bag @ 50 mls/hr IVPB Q2H [facility] Rx#: [id number] Sodium Acetate 50 meq 96.417 Potassium Chloride 45 meq Magnesium Sulfate gm 0. 75 gm Calcium Gluconate 3 gm Sodium Chloride 4Meq/ ml Vial 40 meq In Amino Acids 5 %/Dextrose 20 % 1 ,000 ml @ 65 mls/hr IV . BY DURATION [facility] Rx#: [id number] Vasopressin 60 unit In 145.452 Sodium Chloride 0.9% 150 ml @ 0.04 UNITS/MIN 6.12 mls/hr IV .Q24H [facility] Rx#: [id number] TPN/PPN 780 780 65 TPN 780 780 65 Output: Gastric Drainage 125 Urine 3405 3565 155 Stool 1200 825 Other: Voiding Method Indwelling Catheter Indwelling Catheter ABP, PAP, CO, CI - Last Documented Arterial Blood Pressure 124/48 - Exam GENERAL DESCRIPTION: An elderly female intubated on the vent RESPIRATORY SYSTEM: Unlabored breathing , decreased breath sounds at bases HEART: S1 S2 regular rate and rhythm , ABDOMEN: Soft , abdominal distention EXTREMITIES: Diffuse swelling bilateral lower extremity no redness - Labs CBC & Chem 7: 09/05/22 05:07 09/05/22 18:29 Labs: Abnormal Lab Results - Last 24 Hours (Table) 09/04/22 09/04/22 09/04/22 Range/Units 13:39 17:31 20:45 RBC (3.80-5.40) m/uL Hgb (11.4-16.0) gm/dL Hct (34.0-46.0) % MCHC (31.0-37.0) g/dL RDW (11.5-15.5) % Plt Count (150-450) k/uL Neutrophils # (Manual) (1.3-7.7) k/uL Lymphocytes # (Manual) (1.0-4.8) k/uL Nucleated RBCs (0-0) /100 WBC ABG pCO2 (35-45) mmHg ABG pO2 (83-108) mmHg ABG HCO3 (21-25) mmol/L ABG Total CO2 (19-24) mmol/L Sodium (137-145) mmol/L Potassium (3.5-5.1) mmol/L Chloride (98-107) mmol/L BUN (7-17) mg/dL Glucose (74-99) mg/dL POC Glucose (mg/dL) 158 H 141 H 179 H (70-110) mg/dL AST (14-36) U/L Alkaline Phosphatase (38-126) U/L Total Protein (6.3-8.2) g/dL Albumin (3.5-5.0) g/dL 09/05/22 09/05/22 09/05/22 Range/Units 01:00 05:07 05:07 RBC 3.08 L (3.80-5.40) m/uL Hgb 8.2 L (11.4-16.0) gm/dL Hct 26.7 L (34.0-46.0) % MCHC 30.7 L (31.0-37.0) g/dL RDW 22.0 H (11.5-15.5) % Plt Count 66 L (150-450) k/uL Neutrophils # (Manual) 10.10 H (1.3-7.7) k/uL Lymphocytes # (Manual) 0.42 L (1.0-4.8) k/uL Nucleated RBCs 2 H (0-0) /100 WBC ABG pCO2 (35-45) mmHg ABG pO2 (83-108) mmHg ABG HCO3 (21-25) mmol/L ABG Total CO2 (19-24) mmol/L Sodium 131 L (137-145) mmol/L Potassium 3.2 L (3.5-5.1) mmol/L Chloride 92 L (98-107) mmol/L BUN 88 H (7-17) mg/dL Glucose 194 H (74-99) mg/dL POC Glucose (mg/dL) 210 H (70-110) mg/dL AST 50 H (14-36) U/L Alkaline Phosphatase 206 H (38-126) U/L Total Protein 4.3 L (6.3-8.2) g/dL Albumin 1.8 L (3.5-5.0) g/dL 09/05/22 09/05/22 09/05/22 Range/Units 05:13 06:02 09:03 RBC (3.80-5.40) m/uL Hgb (11.4-16.0) gm/dL Hct (34.0-46.0) % MCHC (31.0-37.0) g/dL RDW (11.5-15.5) % Plt Count (150-450) k/uL Neutrophils # (Manual) (1.3-7.7) k/uL Lymphocytes # (Manual) (1.0-4.8) k/uL Nucleated RBCs (0-0) /100 WBC ABG pCO2 47 H (35-45) mmHg ABG pO2 110 H (83-108) mmHg ABG HCO3 29 H (21-25) mmol/L ABG Total CO2 31 H (19-24) mmol/L Sodium (137-145) mmol/L Potassium (3.5-5.1) mmol/L Chloride (98-107) mmol/L BUN (7-17) mg/dL Glucose (74-99) mg/dL POC Glucose (mg/dL) 211 H 126 H (70-110) mg/dL AST (14-36) U/L Alkaline Phosphatase (38-126) U/L Total Protein (6.3-8.2) g/dL Albumin (3.5-5.0) g/dL Microbiology - Last 24 Hours (Table) 08/29/22 13:29 Blood Culture - Final Blood No Growth after 144 hours Assessment and Plan (1) Sepsis Current Visit: Yes Status: Acute Code(s): A41.9 - SEPSIS, UNSPECIFIED ORGANISM SNOMED Code(s): 41927784 Plan: 1patient was in the hospital with sepsis and septic shock initially concern for multidrug-resistant Pseudomonas UTI, patient also have a candidemia secondary to possible abdominal source and now with a VRE bacteremia source likely abdominal 2patient did have evidence of colonic perforation and peritonitis being managed medically as the patient considered to be high risk for any surgical procedure 3patient did have persistent VRE bacteremia and could be related to the multiple lines , patient will benefit from removal of those lines to control her bacteremia, patient did have a repeat blood cultures on 08/29/2022 those are n egative so far 4-the patient clinical condition remains to be guarded however the patient did have resolution of her fever and repeat blood culture has been negative so far, the patient white count has normalized as of this morning 5- patient condition remains to be guarded, patient is currently being treated Zyvox Zerbex and Eraxis and will monitor clinical course closely, daughter at the bedside questions were answered possible withdrawal of the care was discussed as low chance of clinical recovery from her current condition Time with Patient: Less than 30
[2022-09-06 00:37] LABS: Glucose,Whole Blood 160 mg/dL (70-110)
[2022-09-06] MEDS: INSULIN ASPART (NovoLOG) 100 UNIT/ML VIAL SQ SCH ×6 (00:45→20:51)
[2022-09-06] MEDS: PHENYTOIN SODIUM INJ 300 MG in SODIUM CHLORIDE 0.9% 50 ML IVPB SCH ×2 (00:45→12:08)
[2022-09-06] MEDS: NOREPINEPHRINE 32 MG in SODIUM CHLORIDE 0.9% 218 ML IV SCH ×3 (00:46→18:20)
[2022-09-06] MEDS: LINEZOLID 600 MG in DEXTROSE/WATER 1 300ML.BAG IVPB SCH ×2 (01:02→12:04)
[2022-09-06] MEDS: 1: MVI, ADULT NO.4 WITH VIT K 10 ML, TRACE (CONC-1ML/DOSE) 1 ML, SODIUM ACETATE 50 MEQ, IV SCH ×24 (01:36→16:00)
[2022-09-06] MEDS: FUROSEMIDE 100 MG in SODIUM CHLORIDE 0.9% 90 ML IV SCH ×3 (02:42→22:55)
[2022-09-06 04:21] LABS: Glucose,Whole Blood 158 mg/dL (70-110)
[2022-09-06 06:24] LABS: Albumin 1.9 g/dL (3.5-5.0); Calcium 8.3 mg/dL (8.4-10.2); Magnesium 1.9 mg/dL (1.6-2.3); Phosphorus 2.8 mg/dL (2.5-4.5); Potassium 3.2 mmol/L (3.5-5.1); Total Bilirubin 0.4 mg/dL (0.2-1.3); Total Protein 4.2 g/dL (6.3-8.2)
[2022-09-06 06:25] LABS: ABG Base Excess 5.9 mmol/L; ABG HCO3 30 mmol/L (21-25); ABG Oxygen Saturation 99.6 % (94-97); ABG PCO2 47 mmHg (35-45); ABG PH 7.42 (7.35-7.45); ABG PO2 133 mmHg (83-108); ABG TCO2 32 mmol/L (19-24); Allen Test Performed? Yes
[2022-09-06] MEDS: MIDODRINE 5 MG TAB PO SCH ×3 (06:52→18:22)
[2022-09-06] MEDS: levETIRAcetam IV 1,000 MG in SALINE 1 100ML.BAG IVPB SCH ×2 (08:36→20:52)
[2022-09-06] MEDS: PANTOPRAZOLE 40 MG/10 ML VIAL IVP SCH (08:40)
[2022-09-06] MEDS: AMIODARONE 200 MG TAB PO SCH ×2 (08:40→20:51)
[2022-09-06] MEDS: IPRATROPIUM 0.5 MG/2.5 ML NEBU INHALATION SCH ×4 (08:49→20:20)
[2022-09-06] MEDS: ALBUTEROL NEBULIZED 2.5 MG/3 ML INHALATION SCH ×4 (08:49→20:20)
[2022-09-06] MEDS ORDERED: POTASSIUM CHLORIDE 20 MEQ in WATER FOR INJECTION 1 100ML.BAG IVPB SCH (09:00)
[2022-09-06] MEDS: LACOSAMIDE IV 150 MG in SODIUM CHLORIDE 0.9% 50 ML IVPB SCH ×2 (09:00→21:51)
[2022-09-06 09:01] LABS: Glucose,Whole Blood 138 mg/dL (70-110)
[2022-09-06] MEDS: metOLazone 5 MG TAB PO SCH ×2 (09:30→20:52)
[2022-09-06] MEDS: POTASSIUM BICARBONATE/CIT AC 20 MEQ TABLET.EFF NG-TUBE SCH ×2 (09:33→12:01)
[2022-09-06] MEDS: ANIDULAFUNGIN 100 MG in SODIUM CHLORIDE 0.9% 100 ML IVPB SCH (09:41)
[2022-09-06] MEDS: CEFTOLOZANE/TAZOBACTAM 1.5 GM in SODIUM CHLORIDE 0.9% 100 ML IV SCH ×2 (09:41→15:59)
--- NOTE | 2022-09-06 09:58 | P.PN ---
Subjective Progress Note Date: 09/06/22 On today's evaluation of 09/04/2022, seeing the patient for a follow-up. The patient is a very complex case, an 87-year-old female patient remains in septic shock, unresponsive, on a mechanical ventilator, being followed up in the intensive care unit, still seeing several consultants regarding her complex situation. In summary, this patient has been on a mechanical ventilator for septic shock. During her course of her illness, the patient had various infections, as the patient's initial infection was related to Enterococcus faecalis and pseudomonas aeruginosa in her urine and subsequently the patient became septic and grew anaerobic gram-negative bacillus in the blood and this was thought to be related to an ischemic bowel and following that, the patient developed sputum positive for Ange and the blood culture was also positive for Ange albicans on 08/11/2022. Subsequent sputum from 08/19/2022 was positive for MRSA, blood culture was positive for VRE on 08/19/2022 and repeated blood culture from 08/23/2022 was again positive for VRE. The patient is currently on a combination of Zerbaxa , eraxis and Zyvox. This morning, the patient is not receiving any sedation. As mentioned, she is completely unresponsive. she was seen by neurology on multiple occasions. The patient's m ost recent CAT scan of the brain that was done on 09/03/2022 showed evidence of cerebral atrophy without any acute changes. EEG that was done on 09/01/2022 showed evidence of burst suppression discharges suggestive of nonconvulsive status Versus anoxia the brain. There is also background slowing suggestive of severe encephalopathy. The patient does not respond to any verbal. She does not identify any painful stimulation. She has been off sedation for quite some time and I do not to follow this patient back into 2022. She remains on a mechanical ventilator. Noted the patient had received a tracheostomy and currently is on assist-control mode of mechanical ventilation. She is currently on a rate of 30 with a tidal volume of 400 and FiO2 of 40% with a PEEP of 10. Chest x-ray showing dense consolidation of the lung bases bilaterally. Blood gas from today shows a pH of 7.39, pCO2 of 46, pO2 133. Hemodynamically, she is on pressors and the patient is on vasopressin physiologic data that 0.04 units and the patient is also on norepinephrine running at 0.14 mcg/kg/m. She remains on a running at 10 mg an hour. Overall fluid balance is -2.6 L over the past 24 hours and the patient is responding nicely to the diuretics. Note that the most recent blood culture that was done on 08/29/2022 showed no evidence of any microbial growth. There is evidence currently of 14.6 with a hemoglobin of 8.4 and a platelet count of 104. BUN is at 19 with a creatinine of 1.2 and a sodium level is at 129. AST is 46, ALT is 27, alkaline phosphatase 187. Blood sugars at 1:30 from this morning. She still has a triple-lumen catheter in her left subclavian vein. She also has not. Right femoral. Patient is on Levemir insulin 15 units at bedtime in addition to NovoLog based on a sliding scale coverage. Antibiotics will mentioned above. TPN is running at the rate of 65 mL an hour. She is on amiodarone 400 mg by mouth twice a day and her current cardiac rhythm is controlled atrial fibrillation. She is on no anticoagulants for now. In terms of bowel movement activity, the patient is producing large amounts of stool and she has a fecal management system in Place. The patient remains on laxatives. The patient is a combination of MiraLAX and lactulose. Most recent ammonia level is at 20. On today's evaluation of 09/05/2022, I'm seeing the patient for a follow-up. Clinically unchanged. Off sedation. Unresponsive. Still on the mechanical ventilator and the patient has been switched to no colds. Nevertheless, the wanted to continue ongoing treatment with the understanding that the patient carries a very poor prognosis because of septic shock and multisystem organ failure. For now, the patient is on no sedation. The patient is unresponsive. The patient is not following any commands. The patient has been off sedation since 08/30/2022. The patient remains on mechanical ventilator and she is essentially on the same ventilator setting. She is currently on assist- control mode of mechanical ventilation with a rate of 30, tidal volume of 400, FiO2 of 40% and a PEEP of 10. The blood gas from today showed a pH of 7.4 with a pCO2 of 47 and pO2 of 110. Chest x-ray from today is not done. The last chest x-ray was from 09/03/2022. We'll repeat another chest x-ray tomorrow. The last chest x-ray showed tracheostomy and NG tube being in good location. The patient continues to have bilateral airspace disease. Hemodynamically, the patient's current cardiac rhythm is controlled a chest fibrillation. The patient is on pressors. The patient is on a norepinephrine at a rate of 0.13 mcg/kg/m. The patient remains on Lasix drip at 10 mg an hour. The patient is also on vasopressin physiologic dose of 0.04 units an hour. The patient is also receiving TPN for nutritional support. TPN is running at 65 mL an hour. Overall fluid balance over the past 24 hours has been in the order of -5.2 L as the patient is being aggressively diuresed. Meanwhile, a trial of enteral feeding was given to this patient in the patient failed to tolerate enteral feeding. She has a fecal management system in Place and she is still having liquidy loose stools. The abdomen is nondistended. The response of 10.6 with a hemoglobin of 8.2 and a platelet count of 66 which is a drop compared to yesterday. In same time, the patient has a sodium of 131, potassium of 3.2, and a potassium level has been placed, BUN is at 88 with a creatinine of 1.0 and is using a 27. Patient has a AST of 50, ALT of 28, alkaline phosphatase of 206, and albumin is at 1.8 with a total protein of 4.3. Glucose at 126. No new cultures are not available the most recent culture of the blood was from 08/29/2002 and this was negative. On 09/06/2022, clinically unchanged and the patient remains unresponsive. She grimaces only to deep painful stimulation. Otherwise, she does not open up her eyes spontaneously. She does not follow any commands. She has been off sedation for more than a week. She remains in septic shock with multisystem organ failure. For now, the patient's is on a mechanical ventilator through tracheostomy tube. The patient remains on assist-control mode of mechanical ventilation at the rate of 30 with a tidal volume of 400 and FiO2 of 40% and a P EEP is currently at 6. Meanwhile, the blood gas from today showed a pH of 7.42 with a pCO2 of 47 and a pO2 of 133. The patient is not having any significant orotracheal secretions. The chest x-ray that was done yesterday on 09/05/2022 showed adequate positioning of the tracheostomy tube. NG tube is also in good location. The patient has persistent bilateral pulmonary infiltration and pleural effusions. The chest x-ray findings of essentially unchanged. There may be just some air within the abdomen is on the x-ray findings and we noted the patient had pneumoperitoneum earlier. In terms of feeding, the patient was unable to tolerate enteral feeding. She was having high NG output. Bowel sounds are still sluggish. Based on that, the patient was kept on TPN for nutritional support which is running at the rate of 65 mL an hour. She remains on IV fluids at KVO. She is on norepinephrine which is running at 0.11 mcg/kg/m. Urine output is adequate. Overall fluid balance is -1.1 L over the past 24 hours as the patient is being also diuresed with IV Lasix and the patient is receiving Lasix drip at 10 mg an hour. There is improvement in the third spacing and edema in the upper and lower oximetry is bilaterally. Nevertheless, the patient continues to have digital necrosis in her toes and her fingers. Fecal management system still in place. The patient remains on the same antibiotic coverage for now. The patient's blood work from today shows a sodium of 133, potassium of 3.2, chloride of 95 with a bicarb of 29. LFTs are unchanged. The patient's WBC count from yesterday was at 10.6 with a hemoglobin of 8.2. Most recent blood culture from 08/29/2022 was negative. Objective - Vital Signs Vital signs: Vital Signs Temp 97.2 F L 09/06/22 04:00 Pulse 116 H 09/06/22 08:59 Resp 30 H 09/06/22 07:00 BP 128/47 09/02/22 15:00 Pulse Ox 100 09/06/22 07:00 FiO2 40 09/06/22 08:31 Intake & Output 09/05/22 09/06/22 09/06/22 18:59 06:59 18:59 Intake Total 7768.847 0607.342 83 Output Total 4111 0295 220 Balance -848.367 -298.658 -137 Weight 130.4 kg 129.6 kg Intake: IV 1484 1296 83 0.9% @ KVO 195 165 15 Anidulafungin 100 mg In 100 Sodium Chloride 0.9% 100 ml @ 84 mls/hr IVPB DAILY [facility] Rx#:[id number] Ceftolozane/Tazobactam 0. 200 100 75 gm In Sodium Chloride 0.9% 100 ml @ 100 mls/hr IV Q8HR [facility] Rx#:[id number] Fat Emulsion 20% 250 ml 250 63 In Empty Bag 1 bag @ 21 mls/hr IV TuFr [facility] Rx#: [id number] Lacosamide IV 150 mg In 50 50 Sodium Chloride 0.9% 50 ml @ 100 mls/hr IVPB BID [facility] Rx#:[id number] Linezolid 600 mg In 300 150 Dextrose/Water 1 300ml. bag @ 150 mls/hr IVPB Q12H [facility] Rx#:[id number] Normal Saline: Pressure 39 33 3 Bag Phenytoin Sodium Inj 300 50 50 mg In Sodium Chloride 0.9 % 50 ml @ 80 mls/hr IVPB Q12H [facility] Rx#:[id number] Potassium Chloride 20 meq 200 In Water For Injection 1 100ml.bag @ 50 mls/hr IVPB Q2H [facility] Rx#: [id number] Sodium Acetate 50 meq 585 65 Potassium Chloride 45 meq Magnesium Sulfate gm 0. 75 gm Calcium Gluconate 3 gm Sodium Chloride 4Meq/ ml Vial 40 meq In Amino Acids 5 %/Dextrose 20 % 1 ,000 ml @ 65 mls/hr IV . BY DURATION [facility] Rx#: [id number] levETIRAcetam IV 1,000 mg 100 100 In Saline 1 100ml.bag @ 400 mls/hr IVPB Q12HR [facility] Rx#:[id number] Intake, IV Titration 758.382 1439.342 Amount Furosemide 100 mg In 88.5 100 Sodium Chloride 0.9% 90 ml @ 10 MG/HR 10 mls/hr IV .Q10H [facility] Rx#: [id number] Mvi, Adult No.4 with Vit 1055.167 K 10 ml Trace (Conc-1Ml/ Dose) 1 ml Sodium Acetate 50 meq Potassium Chloride 54 meq Magnesium Sulfate gm 0.75 gm Calcium Gluconate 3 gm Sodium Chloride 4Meq/ml Vial 60 meq In Amino Acids 5 %/Dextrose 20 % 1 ,000 ml @ 65 mls/hr IV . BY DURATION [facility] Rx#: [id number] Norepinephrine 32 mg In 56.133 65.175 Sodium Chloride 0.9% 218 ml @ 0.5 MCG/KG/MIN 25. 547 mls/hr IV .Q9H48M [facility] Rx#:[id number] Potassium Chloride 20 meq 100 In Water For Injection 1 100ml.bag @ 50 mls/hr IVPB Q2H [facility] Rx#: [id number] Vasopressin 60 unit In 153 Sodium Chloride 0.9% 150 ml @ 0.04 UNITS/MIN 6.12 mls/hr IV .Q24H [facility] Rx#: [id number] Tube Feeding 0 TPN/PPN 65 TPN 65 Other 0 Output: Gastric Drainage 200 Urine 2795 2065 220 Stool 550 Other: Voiding Method Indwelling Catheter Indwelling Catheter ABP, PAP, CO, CI - Last Documented Arterial Blood Pressure 118/49 - Exam GENERAL EXAM: Intubated, sedated, 87-year-old morbidly obese female HEAD: Normocephalic. EYES: Sluggish reaction of pupils, equal size. NOSE: Nasogastric tube secured in place. Clear with pink turbinates. THROAT: Oral endotracheal tube in place. NECK: No masses, no JVD. CHEST: No chest wall deformity. LUNGS: Equal air entry with crackles in the bilateral bases. CVS: S1 and S2 normal with no audible murmur, irregular rhythm. ABDOMEN: No hepatosplenomegaly, normal bowel sounds, no guarding or rigidity. SPINE: No scoliosis or deformity SKIN: No rashes CENTRAL NERVOUS SYSTEM: Sedated, tone is normal in all 4 extremities. EXTREMITIES: There is 1-2+ peripheral edema. Changes of chronic venous stasis. No clubbing, no cyanosis. Peripheral pulses are intact. - Labs CBC & Chem 7: 09/05/22 05:07 09/06/22 05:54 Labs: Abnormal Lab Results - Last 24 Hours (Table) 09/05/22 09/05/22 09/05/22 Range/Units 11:52 18:25 20:50 ABG pCO2 (35-45) mmHg ABG pO2 (83-108) mmHg ABG HCO3 (21-25) mmol/L ABG Total CO2 (19-24) mmol/L ABG O2 Saturation (94-97) % Sodium (137-145) mmol/L Potassium (3.5-5.1) mmol/L Chloride (98-107) mmol/L BUN (7-17) mg/dL Glucose (74-99) mg/dL POC Glucose (mg/dL) 138 H 220 H 193 H (70-110) mg/dL Calcium (8.4-10.2) mg/dL AST (14-36) U/L Alkaline Phosphatase (38-126) U/L Total Protein (6.3-8.2) g/dL Albumin (3.5-5.0) g/dL 09/06/22 09/06/22 09/06/22 Range/Units 00:36 04:20 05:54 ABG pCO2 (35-45) mmHg ABG pO2 (83-108) mmHg ABG HCO3 (21-25) mmol/L ABG Total CO2 (19-24) mmol/L ABG O2 Saturation (94-97) % Sodium 133 L (137-145) mmol/L Potassium 3.2 L (3.5-5.1) mmol/L Chloride 95 L (98-107) mmol/L BUN 92 H (7-17) mg/dL Glucose 140 H (74-99) mg/dL POC Glucose (mg/dL) 160 H 158 H (70-110) mg/dL Calcium 8.3 L (8.4-10.2) mg/dL AST 45 H (14-36) U/L Alkaline Phosphatase 196 H (38-126) U/L Total Protein 4.2 L (6.3-8.2) g/dL Albumin 1.9 L (3.5-5.0) g/dL 09/06/22 09/06/22 Range/Units 06:22 08:59 ABG pCO2 47 H (35-45) mmHg ABG pO2 133 H (83-108) mmHg ABG HCO3 30 H (21-25) mmol/L ABG Total CO2 32 H (19-24) mmol/L ABG O2 Saturation 99.6 H (94-97) % Sodium (137-145) mmol/L Potassium (3.5-5.1) mmol/L Chloride (98-107) mmol/L BUN (7-17) mg/dL Glucose (74-99) mg/dL POC Glucose (mg/dL) 138 H (70-110) mg/dL Calcium (8.4-10.2) mg/dL AST (14-36) U/L Alkaline Phosphatase (38-126) U/L Total Protein (6.3-8.2) g/dL Albumin (3.5-5.0) g/dL Assessment and Plan Plan: Acute on chronic hypoxemic respiratory failure, status post intubation on August 10, and tracheostomy on August 25. Chest x-ray continues to show consolidation of the lung bases and pleural effusions bilaterally. Oxygen is stable and the patient remains on a mechanical ventilator assist control mode and the patient has a tracheostomy tube in place. Bilateral lower lobe pneumonia with persistent consolidation lung bases. Most recent sputum indicating MRSA and Ange from 08/19/2022 Septic shock of multiple sources. The patient had initially Enterococcus faecalis and Pseudomonas in her urine on 08/08/2022. The patient also had anaerobic gram-negative bacillus in her blood probably of an end of the abdominal source. Subsequently, the patient had systemic candidemia on 2022 and VRE in her blood on 08/23/2022. She remains on pressors. She is currently on a norepinephrine at 0.11 mcg/kg/m. repeat cultures will be needed as the patient continues to be septic and hypotensive Unresponsive, CAT scan of the brain is negative, EEG showing severe encephalopathy, most recent CAT scan of the brain was done on 09/03/2022 and it showed cerebral atrophy without any acute abnormalities. The patient remains severely encephalopathic. TPN nutritional support, failed EN Acute on chronic diastolic CHF. Abdominal sepsis/septic shock. Anion gap metabolic acidosis. Urinary tract infection secondary to Enterococcus faecalis and pseudomonas aeruginosa. Bacteremia secondary to vancomycin-resistant enterococci (VRE) Systemic candidiasis. The patient systemic candidemia confirmed by positive blood culture. Repeat blood culture was negative and the patient is current on Eraxis. Atrial fibrillation with RVR, rate controled for now Acute on chronic kidney disease. The creatinine is stable and the patient is currently on Lasix drip running at 10 mg an hour Recent history of coronavirus infection. History of aortic stenosis. Acute on chronic anemia. History of COPD. History of diastolic congestive heart failure. Morbid obesity. Diarrhea with fecal management system in Place Necrotic digits of the upper and lower extremities and the patient has gangre nous toes and fingers probably related to chronic sepsis, hypotension, and use of pressors Pressure ulcer on her coccyx Plan: Continue ventilator support Repeat blood cultures Continue same antibiotic coverage Keep the fecal management system in place Continue TPN for nutritional support Continue Lasix drip at 10 mg an hour for another 24 hours as the patient's has diabetes adequately and there is improvement in volume status no sadation Continue midodrine 10 mg tid Avoid sedatives for now, the patient has been off sedation for more than a week. No reasonable neurological recovery. Most recent CAT scan of the brain was done on 09/03/2022 showing no acute changes Wound care Extremely poor prognosis. This has been discussed with the family on multiple occasions. Condition is critical and prognosis poor. We'll continue to follow. This evaluation was a on more than 30 minutes. is not ready to Go and is not considering comfort care measures yet. Her chance of recovery is extremely low for and this has been explained to the daughter and the on multiple occasions. Time with Patient: Greater than 30
--- NOTE | 2022-09-06 10:11 | P.PN ---
Subjective Patient is seen in follow-up for acute kidney injury. Renal function improved. Nonoliguric. Intubated. Currently on Levophed and vasopressin. On Lasix drip. Receiving TPN. Family present at bedside. No changes overnight. Potassium being replaced. Vital signs - on vasopressor support. General: Resting in bed. HEENT: Intubated. LUNGS: Breath sounds decreased. HEART: Tachycardic. ABDOMEN: Distention noted. EXTREMITITES: 2+ edema. Objective - Vital Signs Vital signs: Vital Signs Temp 97.2 F L 09/06/22 04:00 Pulse 116 H 09/06/22 08:59 Resp 30 H 09/06/22 07:00 BP 128/47 09/02/22 15:00 Pulse Ox 100 09/06/22 07:00 FiO2 40 09/06/22 08:31 Intake & Output 09/05/22 09/06/22 09/06/22 18:59 06:59 18:59 Intake Total 4507.411 7747.342 83 Output Total 2795 2815 220 Balance -848.367 -298.658 -137 Weight 130.4 kg 129.6 kg Intake: IV 1484 1296 83 0.9% @ KVO 195 165 15 Anidulafungin 100 mg In 100 Sodium Chloride 0.9% 100 ml @ 84 mls/hr IVPB DAILY [facility] Rx#:[id number] Ceftolozane/Tazobactam 0. 200 100 75 gm In Sodium Chloride 0.9% 100 ml @ 100 mls/hr IV Q8HR [facility] Rx#:[id number] Fat Emulsion 20% 250 ml 250 63 In Empty Bag 1 bag @ 21 mls/hr IV TuFr [facility] Rx#: [id number] Lacosamide IV 150 mg In 50 50 Sodium Chloride 0.9% 50 ml @ 100 mls/hr IVPB BID [facility] Rx#:[id number] Linezolid 600 mg In 300 150 Dextrose/Water 1 300ml. bag @ 150 mls/hr IVPB Q12H [facility] Rx#:[id number] Normal Saline: Pressure 39 33 3 Bag Phenytoin Sodium Inj 300 50 50 mg In Sodium Chloride 0.9 % 50 ml @ 80 mls/hr IVPB Q12H [facility] Rx#:[id number] Potassium Chloride 20 meq 200 In Water For Injection 1 100ml.bag @ 50 mls/hr IVPB Q2H [facility] Rx#: [id number] Sodium Acetate 50 meq 585 65 Potassium Chloride 45 meq Magnesium Sulfate gm 0. 75 gm Calcium Gluconate 3 gm Sodium Chloride 4Meq/ ml Vial 40 meq In Amino Acids 5 %/Dextrose 20 % 1 ,000 ml @ 65 mls/hr IV . [facility] Rx#: [id number] levETIRAcetam IV 1,000 mg 100 100 In Saline 1 100ml.bag @ 400 mls/hr IVPB Q12HR [facility] Rx#:[id number] Intake, IV Titration 892.134 0213.342 Amount Furosemide 100 mg In 88.5 100 Sodium Chloride 0.9% 90 ml @ 10 MG/HR 10 mls/hr IV .Q10H [facility] Rx#: [id number] Mvi, Adult No.4 with Vit 1055.167 K 10 ml Trace (Conc-1Ml/ Dose) 1 ml Sodium Acetate 50 meq Potassium Chloride 54 meq Magnesium Sulfate gm 0.75 gm Calcium Gluconate 3 gm Sodium Chloride 4Meq/ml Vial 60 meq In Amino Acids 5 %/Dextrose 20 % 1 ,000 ml @ 65 mls/hr IV . [facility] Rx#: [id number] Norepinephrine 32 mg In 56.133 65.175 Sodium Chloride 0.9% 218 ml @ 0.5 MCG/KG/MIN 25. 547 mls/hr IV .Q9H48M [facility] Rx#:[id number] Potassium Chloride 20 meq 100 In Water For Injection 1 100ml.bag @ 50 mls/hr IVPB Q2H [facility] Rx#: [id number] Vasopressin 60 unit In 153 Sodium Chloride 0.9% 150 ml @ 0.04 UNITS/MIN 6.12 mls/hr IV .Q24H [facility] Rx#: [id number] Tube Feeding 0 TPN/PPN 65 TPN 65 Other 0 Output: Gastric Drainage 200 Urine 2795 2065 220 Stool 550 Other: Voiding Method Indwelling Catheter Indwelling Catheter ABP, PAP, CO, CI - Last Documented Arterial Blood Pressure 118/49 - Labs CBC & Chem 7: 09/05/22 05:07 09/06/22 05:54 Labs: Abnormal Lab Results - Last 24 Hours (Table) 09/05/22 09/05/22 09/05/22 Range/Units 11:52 18:25 20:50 ABG pCO2 (35-45) mmHg ABG pO2 (83-108) mmHg ABG HCO3 (21-25) mmol/L ABG Total CO2 (19-24) mmol/L ABG O2 Saturation (94-97) % Sodium (137-145) mmol/L Potassium (3.5-5.1) mmol/L Chloride (98-107) mmol/L BUN (7-17) mg/dL Glucose (74-99) mg/dL POC Glucose (mg/dL) 138 H 220 H 193 H (70-110) mg/dL Calcium (8.4-10.2) mg/dL AST (14-36) U/L Alkaline Phosphatase (38-126) U/L Total Protein (6.3-8.2) g/dL Albumin (3.5-5.0) g/dL 09/06/22 09/06/22 09/06/22 Range/Units 00:36 04:20 05:54 ABG pCO2 (35-45) mmHg ABG pO2 (83-108) mmHg ABG HCO3 (21-25) mmol/L ABG Total CO2 (19-24) mmol/L ABG O2 Saturation (94-97) % Sodium 133 L (137-145) mmol/L Potassium 3.2 L (3.5-5.1) mmol/L Chloride 95 L (98-107) mmol/L BUN 92 H (7-17) mg/dL Glucose 140 H (74-99) mg/dL POC Glucose (mg/dL) 160 H 158 H (70-110) mg/dL Calcium 8.3 L (8.4-10.2) mg/dL AST 45 H (14-36) U/L Alkaline Phosphatase 196 H (38-126) U/L Total Protein 4.2 L (6.3-8.2) g/dL Albumin 1.9 L (3.5-5.0) g/dL 09/06/22 09/06/22 Range/Units 06:22 08:59 ABG pCO2 47 H (35-45) mmHg ABG pO2 133 H (83-108) mmHg ABG HCO3 30 H (21-25) mmol/L ABG Total CO2 32 H (19-24) mmol/L ABG O2 Saturation 99.6 H (94-97) % Sodium (137-145) mmol/L Potassium (3.5-5.1) mmol/L Chloride (98-107) mmol/L BUN (7-17) mg/dL Glucose (74-99) mg/dL POC Glucose (mg/dL) 138 H (70-110) mg/dL Calcium (8.4-10.2) mg/dL AST (14-36) U/L Alkaline Phosphatase (38-126) U/L Total Protein (6.3-8.2) g/dL Albumin (3.5-5.0) g/dL Assessment and Plan Plan: Assessment: 1. Acute kidney injury secondary to ATN secondary to septic shock. Baseline creatinine near 0.8 from June 2022 - peaked at 2.77 this admission -0.94 today. Nonoliguric. No hydronephrosis noted on CAT scan. 2. Septic shock secondary to UTI, fungemia and bacteremia. CAT scan done in 08/20/2022 showed pneumoperitoneum. On antibiotics/antifungal and vasopressor support. 3. Metabolic acidosis secondary to acute kidney injury. s/p bicarb drip. 4. Hypokalemia from diuresis. Being replaced. 5. Acute hypoxic respiratory failure. 6. A. fib with RVR. On po amiodarone. Cardiology following. 8. Hyponatremia secondary to acute kidney injury. Hypervolemic. 9. Hypocalcemia secondary to acute kidney injury. Improved. 10. Severe volume overload. 11. Status post tracheostomy this admission. Plan: Maintain Lasix drip. Maintain TPN. Wean FiO2 and vasopressors. Avoid nephrotoxins. Continue to monitor renal function and urine output. Prognosis poor. Continue to assess daily for need for renal replacement therapy. Stopped vit D.
--- NOTE | 2022-09-06 11:20 | P.PN ---
Subjective Progress Note Date: 09/06/22 CHIEF COMPLAINT: Abdominal pain HISTORY OF PRESENT ILLNESS: Patient remains in the ICU and on mechanical ventilation. Patient had tracheostomy placed on 08/25/2022. Patient was unable to have PEG tube placed because light reflex was not visualized during EGD. Patient remains on TPN for nutrition support. She was unable to tolerate tube feeds via NG tube. Remains on vasopressors. Afebrile. PHYSICAL EXAM: VITAL SIGNS: Reviewed GENERAL: On mechanical ventilation. NECK: Tracheostomy site clean dry and intact ABDOMEN: distended. ASSESSMENT: 1. Acute on chronic hypoxic respiratory failure status post tracheostomy placement 2. Severe protein calorie malnutrition 3. Colon perforation 4. Sepsis PLAN: -Keep NG tube to suction -TPN for nutrition support -Continue supportive care -Continue ICU management Physician Fire Prevention Chief note has been reviewed by physician. Signing provider agrees with the documented findings, assessment, and plan of care. Objective - Vital Signs Vital signs: Vital Signs Temp 97.3 F L 09/06/22 08:00 Pulse 122 H 09/06/22 10:45 Resp 30 H 09/06/22 10:45 BP 128/47 09/02/22 15:00 Pulse Ox 100 09/06/22 10:45 FiO2 40 09/06/22 11:05 Intake & Output 09/05/22 09/06/22 09/06/22 18:59 06:59 18:59 Intake Total 0675.181 8938.342 332 Output Total 2795 2815 745 Balance -848.367 -298.658 -413 Weight 130.4 kg 129.6 kg Intake: IV 1484 1296 137 0.9% @ KVO 195 165 60 Anidulafungin 100 mg In 100 Sodium Chloride 0.9% 100 ml @ 84 mls/hr IVPB DAILY [facility] Rx#:[id number] Ceftolozane/Tazobactam 0. 200 100 75 gm In Sodium Chloride 0.9% 100 ml @ 100 mls/hr IV Q8HR [facility] Rx#:[id number] Fat Emulsion 20% 250 ml 250 63 In Empty Bag 1 bag @ 21 mls/hr IV TuFr [facility] Rx#: [id number] Lacosamide IV 150 mg In 50 50 Sodium Chloride 0.9% 50 ml @ 100 mls/hr IVPB BID [facility] Rx#:[id number] Linezolid 600 mg In 300 150 Dextrose/Water 1 300ml. bag @ 150 mls/hr IVPB Q12H [facility] Rx#:[id number] Normal Saline: Pressure 39 33 12 Bag Phenytoin Sodium Inj 300 50 50 mg In Sodium Chloride 0.9 % 50 ml @ 80 mls/hr IVPB Q12H [facility] Rx#:[id number] Potassium Chloride 20 meq 200 In Water For Injection 1 100ml.bag @ 50 mls/hr IVPB Q2H [facility] Rx#: [id number] Sodium Acetate 50 meq 585 65 Potassium Chloride 45 meq Magnesium Sulfate gm 0. 75 gm Calcium Gluconate 3 gm Sodium Chloride 4Meq/ ml Vial 40 meq In Amino Acids 5 %/Dextrose 20 % 1 ,000 ml @ 65 mls/hr IV . BY D[facility] Rx#: [id number] levETIRAcetam IV 1,000 mg 100 100 In Saline 1 100ml.bag @ 400 mls/hr IVPB Q12HR [facility] Rx#:[id number] Intake, IV Titration 193.006 0474.342 Amount Furosemide 100 mg In 88.5 100 Sodium Chloride 0.9% 90 ml @ 10 MG/HR 10 mls/hr IV .Q10H [facility] Rx#: [id number] Mvi, Adult No.4 with Vit 1055.167 K 10 ml Trace (Conc-1Ml/ Dose) 1 ml Sodium Acetate 50 meq Potassium Chloride 54 meq Magnesium Sulfate gm 0.75 gm Calcium Gluconate 3 gm Sodium Chloride 4Meq/ml Vial 60 meq In Amino Acids 5 %/Dextrose 20 % 1 ,000 ml @ 65 mls/hr IV . BY DURATION [facility] Rx#: [id number] Norepinephrine 32 mg In 56.133 65.175 Sodium Chloride 0.9% 218 ml @ 0.5 MCG/KG/MIN 25. 547 mls/hr IV .Q9H48M [facility] Rx#:[id number] Potassium Chloride 20 meq 100 In Water For Injection 1 100ml.bag @ 50 mls/hr IVPB Q2H [facility] Rx#: [id number] Vasopressin 60 unit In 153 Sodium Chloride 0.9% 150 ml @ 0.04 UNITS/MIN 6.12 mls/hr IV .Q24H [facility] Rx#: [id number] Tube Feeding 0 TPN/PPN 65 195 TPN 65 195 Other 0 Output: Gastric Drainage 200 Urine 2795 2065 745 Stool 550 Other: Voiding Method Indwelling Catheter Indwelling Catheter Indwelling Catheter ABP, PAP, CO, CI - Last Documented Arterial Blood Pressure 115/51 - Labs CBC & Chem 7: 09/05/22 05:07 09/06/22 05:54 Labs: Abnormal Lab Results - Last 24 Hours (Table) 09/05/22 09/05/22 09/05/22 Range/Units 11:52 18:25 20:50 ABG pCO2 (35-45) mmHg ABG pO2 (83-108) mmHg ABG HCO3 (21-25) mmol/L ABG Total CO2 (19-24) mmol/L ABG O2 Saturation (94-97) % Sodium (137-145) mmol/L Potassium (3.5-5.1) mmol/L Chloride (98-107) mmol/L BUN (7-17) mg/dL Glucose (74-99) mg/dL POC Glucose (mg/dL) 138 H 220 H 193 H (70-110) mg/dL Calcium (8.4-10.2) mg/dL AST (14-36) U/L Alkaline Phosphatase (38-126) U/L Total Protein (6.3-8.2) g/dL Albumin (3.5-5.0) g/dL 09/06/22 09/06/22 09/06/22 Range/Units 00:36 04:20 05:54 ABG pCO2 (35-45) mmHg ABG pO2 (83-108) mmHg ABG HCO3 (21-25) mmol/L ABG Total CO2 (19-24) mmol/L ABG O2 Saturation (94-97) % Sodium 133 L (137-145) mmol/L Potassium 3.2 L (3.5-5.1) mmol/L Chloride 95 L (98-107) mmol/L BUN 92 H (7-17) mg/dL Glucose 140 H (74-99) mg/dL POC Glucose (mg/dL) 160 H 158 H (70-110) mg/dL Calcium 8.3 L (8.4-10.2) mg/dL AST 45 H (14-36) U/L Alkaline Phosphatase 196 H (38-126) U/L Total Protein 4.2 L (6.3-8.2) g/dL Albumin 1.9 L (3.5-5.0) g/dL 09/06/22 09/06/22 Range/Units 06:22 08:59 ABG pCO2 47 H (35-45) mmHg ABG pO2 133 H (83-108) mmHg ABG HCO3 30 H (21-25) mmol/L ABG Total CO2 32 H (19-24) mmol/L ABG O2 Saturation 99.6 H (94-97) % Sodium (137-145) mmol/L Potassium (3.5-5.1) mmol/L Chloride (98-107) mmol/L BUN (7-17) mg/dL Glucose (74-99) mg/dL POC Glucose (mg/dL) 138 H (70-110) mg/dL Calcium (8.4-10.2) mg/dL AST (14-36) U/L Alkaline Phosphatase (38-126) U/L Total Protein (6.3-8.2) g/dL Albumin (3.5-5.0) g/dL
[2022-09-06 11:57] LABS: Glucose,Whole Blood 153 mg/dL (70-110)
[2022-09-06] MEDS: VASOPRESSIN 60 UNIT in SODIUM CHLORIDE 0.9% 150 ML IV SCH (12:12)
[2022-09-06 15:57] LABS: Glucose,Whole Blood 151 mg/dL (70-110)
--- NOTE | 2022-09-06 18:11 | P.PN ---
Subjective Progress Note Date: 09/05/22 H&P Date: 08/09/22 Chief Complaint: Shortness of breath,Altered mental statConstipation, syncope, hyperglycemia This is a pleasant 87-year-old female with past medical history of CAD, NM, stent placement, aortic stenosis ,chronic hypoxic respiratory failure,on 2 L nasal cannula ,Covid 06/22,COPD, former nicotine dependence, obstructive sleep apnea ,CVA/TIA, diabetes mellitus, hypertension, hyperlipidemia, hypothyroidism, recurrent UTIs,CKD III, urinary retention, anemia, bilateral peripheral neuropathy, gait dysfunction,utilizing walker, falls, morbid obesity-BMI 39.9 and multiple other medical issues brought in via ambulance, on BiPAP to the ER for change in level of consciousness, syncope, nausea, vomiting, hyperglycemia, constipation-on [place], shortness of breath, recently discharged from [facility] subacute rehab on 08/06/2022. Information being obtained from chart and daughter at bedside. Daughter reports they are unsure of her last bowel movement, possibly , 08/03. [facility] documented large bowel movement on 08/04 and 08/05. Reports yesterday blood sugars were running high in the 400s, patient developed nausea and vomiting, change in sensorium, passed out while on the toilet. Reports patient "coughs all the time, but has COPD", no knowledge of fevers, denies chills. Denies chest pain, palpitations, positive shortness of breath. Developed hypotension in the ER in addition to emesis, received fluid bolus .Chest x-ray reported right basilar infiltrate with persistent small right effusion, no overt failure. EKG reported sinus rhythm, troponin negative 1. KUB reported marked gastric distention, additional small bowel loops dilated, possibly retained debris within the rectum and sigmoid colon. 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 NG tube placed in the ER with 1200 MLS bilious output reported overnight. D-dimer elevated 4.73, CT angio chest reported no evidence of pulmonary embolism,more consolidation changes in the right lung base, rule out aspiration. ProBNP 426. UA reported many WBC clumps, 165 WBCs, large leukocytes, negative nitrates, culture pending. Afebrile, on admission temperature 96.7, currently 98.8. WBC 14.3. lactic acid 3.5, repeat level pending. Hemoglobin 10.2, platelets 4:15, a I's within normal limits, BUN 40, creatinine 1.5. BiPAP weaned off, currently requiring 6 L nasal cannula O2 to maintain O2 sats in the low 90s. 08/10/22 Continued to decline throughout the night requiring ICU admission, maintained on vasopressin, Levophed and bicarb drips. Received fluid boluses throughout the night. Lactic acid decreased to 2.1. Low urine output on Lasix IV push. BUN 81, creatinine 2.68. Hyperkalemic, received calcium, insulin, D50, sodium bicarbonate. Chest x-ray reporting stable bilateral lower lobe infiltrate and small effusion. Afebrile, T-max 99.7. Continues on Levaquin, WBC normalized today. Cefepime added to antibiotic regimen today. Preliminary Urine cultures reporting group D enterococcus 50-100,000 colonies and gram-negative bacilli 10 and 49,000 colonies. 07/03 Blood cultures reporting GNB. Hemoglobin 8.2, platelets 311. 08/11/2022 Vent dependent, FiO2 60%/+5 of PEEP. Chest x-ray reports stable, no change in bibasilar opacities, pleural effusion unchanged. Continues on the Levophed and vasopressin drips. Febrile to the night, T-max 102.4, WBC increased to 12.2. Lactic acid trended up during the night, received fluid boluses, currently at 3.2. Developed atrial fibrillation with RVR, bolused with amiodarone and currently on amiodarone drip. Urine culture reporting enterococcus faecalis and Pseudomonas aeruginosa.Films reviewed by general surgery, reporting sigmoid volvulus. Recommending conservative management. BUN 79, creatinine 2.74. Hyperglycemic. Hemoglobin 8.6, platelets 349. Anticoagulation remains on hold. 08/21/2022 remains vent dependent, FiO2 50%/+5 of PEEP. Maintained on high doses of levophed, vasopressin. Amiodarone and bicarb drips continue. Receiving IV albumin to be followed by Lasix. Worsening renal function. Staff reports no urine output 24 hours. Bicarb 16, BUN 76, creatinine 1.73. Repeat CT of abdomen and pelvis completed yesterday, reporting moderate volume pneumo peritoneum, suspected perforation of distal colonic bowel, extensive distal bowel pneumatosis. Surgery discussed findings with family, high risk for surgical intervention. Family decided against surgical intervention,but to continue with nonsurgical care. T-max 100.6. Maintained on Zerbaxa, Eraxis, daptomycin .Seizure-like activity reported yesterday afternoon, placed on Keppra, reoccurred in the tow motor mechanic hours 2. Brain CT reported no acute intracranial process .EEG completed, results pending. 08/22/2022 vent dependent, 40% FiO2, +5 of PEEP. Staff reports patient desats quickly with turning. Chest x-ray reporting bibasilar atelectasis, consolidation, minimally increased, possible tiny right basilar pleural effusion. Continues on high doses of pressors, digits dusky. Maintained on bicarb drip. Telemetry atrial fibrillation, fast ventricular rate on amiodarone drip. Remains on antibiotics as per infectious disease.BUN 83, creatinine 1.79. T-max 102, WBC decreased, 16.5 08/23/2022 FiO2 50%/+5 of PEEP. Chest x-ray reported no significant change .Continues on pressor support. Maintained on amiodarone drip, heart rates currently in the 1 teens to 120s. Continues on daptomycin, Zerbexa and Eraxis.T-max 100.9, WBC 15.3. BUN 83, creatinine 2.13. WBC decreased to 15.3. Receiving IV albumin, Albumin currently 1.6. Ionized calcium 3.4, receiving supplementation. 08/24/2022 continues in A. fib, heart rates 110 to 130s on amiodarone drip. Seizure activity yesterday reported with facial twitching lasting approximately half an hour EEG performed-reported abnormal 2-1/2 hour EEG suggesting epileptiform focus involving midline occipital parietal region. Vimpat and Keppra doses increased. Continue to have seizure activity today, right-sided face twitching, trembling of arm reported, repeat EEG in progress. Versed drip initiated. Brain Ct pending. Maximized on both norepi and vasopressin. Digits dusky, declining comfort care at this time. Continues on bicarb drip. Remains vent dependent on FiO2 50%/+5 of PEEP. Now trach and PEG are being considered. 08/25/2022 maximized on pressors, levophed and vasopressin. Mechanical ventilator-dependent, FiO2 50%/+5 of PEEP. Chest x-ray reporting worsening bibasilar consolidation ,bilateral pneumonia. Family meeting via phone this morning with Dr. Hartman PCP, regarding poor prognosis, futile condition. Scheduled for tracheostomy and PEG-consent pending. Continues on amiodarone, bicarb drips. TPN. Continues to have seizure activity, on Versed drip, Dilantin added to med regimen. Afebrile, worsening WBC, 21.7, potassium 3, receiving supplementation. BUN 79, creatinine 1.87. Ionized calcium 3.4, supplemented. 08/28/2022 Remains vent dependent, FiO2 45%/+10 of PEEP status post tracheostomy 08/25. Nebulized bronchodilators, IV steroids. Receiving TPN/lipids. Requiring insulin drip for hyperglycemia, blood sugars currently ranging 160s to 170s.Ongoing seizures, continues on Versed drip, Dilantin, Keppra, Vimpat. EEG repeated yesterday, reported severely abnormal, suppression worsening-seen with severe anoxic or toxic metabolic encephalopathy, nonconvulsive generalized status epilepticus cannot be ruled out. Maintained on vasopressin, Levophed and Lasix drips. Antibiotics as per infectious disease. Afebrile, WBC 22.4. 08/29/2022 remains vent dependent, FiO2 45%/+10 of PEEP. Chest x-ray reporting bilateral infiltrates and pleural effusion, pneumonia versus CHF. PEG tube unable to be placed, please refer to the surgeon's note.Maintained on vasopressin, Levophed Lasix, Versed and Ativan drips. Repeat EEG pending. Continues on antibiotics of Eraxis, Zyvox and Zerbaxa. Afebrile, WBC 22.6. Hemoglobin 6.5, receiving one unit of packed RBCs. Platelets 255. 08/30/2022 remains vent dependent, FiO2 45%/+10 of PEEP. Chest x-ray reporting stable bilateral infiltrates and pleural effusion. Continues on TPN, Lasix drip, norepinephrine, vasopressin. Maintained on Eraxis, Zyvox and Zerbaxa. Afebrile, WBC 20.7. Ammonia 50.EEG yesterday -refer to neurology report.Versed and Ativan drips turned off, 2 hour EEG recently started. Received one unit of packed RBCs yesterday with current hemoglobin 8.1, platelets 221. Sodium decreased to 126. Bicarb 21, BUN 81, creatinine 1.62. Albumin 1.6. Nephrology discussing renal replacement therapy secondary to fluid volume overload if family continues with aggressive therapy. 08/31/22 continues on vasopressor support, antifungal/antibiotics, oral antiarrhythmics, TPN, IV steroids, nebulized bronchodilators, IV diuretics, seizure management including Versed and Ativan drips,lactulose, mechanical ventilation with FiO2 45% status post 10 of PEEP. Chest x-ray reporting potentially developing mild pulmonary vascular congestion, ongoing right greater than left bibasilar consolidation/atelectasis and small effusions. Maintained on Lasix drip, severe volume overload. Nephrology discussing potential SLED as requesting to continue with current aggressive treatment at this time. 09/01/2022 Tube feeds stopped as patient developed high residuals during the night, maintained on TPN. No clinical seizure activity reported. Neurology workup continues, EEG recently repeated, results pending. Remains vent dependent, FiO2 40%/+10 of PEEP, pressor dependent and on IV Lasix. BUN 86, creatinine 1.65. Continues on antibiotics/antifungal. Afebrile. Family undecided regarding SLED/renal replacement treatment option discussed as per nephrology. 09/04/2022 Remains off of sedation, Vent dependent FIO2 40%/+8 Peep. Telemetry atrial fibrillation, controlled ventricular rate. Pressor support with both L evophed,Vasopressin, Lasix drips. 24-hour I&O reporting a negative fluid balance. High residuals, unable to tolerate tube feeds with NG ,currently on TPN for nutritional support.loose stool, FMS present.Blood sugars currently 150s. Brain CT repeated yesterday reporting cerebral atrophy, no acute i ntracranial abnormality, no change. Maintained on Zyvox Zerbex and Eraxis . Afebrile, WBC decreased to 14.6. Hemoglobin 8.4, platelets 104. Sodium 129, BUN 90, creatinine 1.2. T bili 0.4 AST 46 ALT 27, alk phos 187. ammonia level XX. Albumin 1.8. 09/05/2022 FiO2 40%/Peep decreased to +6. Continues on dual pressors, digits of upper and lower extremities necrotic. Midodrin added to med regimen. Telemetry controlled A. fib. Maintained on Zyvox Zerbex and Eraxis,fevers resolved, WBC normalized, repeat blood cultures of 2/28 reporting no growth. Nutritional support via TPN, related to patient unable to tolerate enteral feeding/high residuals. FMS in place with loose stools Diuresing on Lasix drip, runny 4 hour I&O reflecting a negative fluid balance. Renal function improving, BUN 88, creatinine 1.sodium 131, bicarb 27. Hemoglobin 8.2, platelets decreased ,66. Objective - Vital Signs Vital signs: Vital Signs Temp 98.2 F 09/05/22 12:00 Pulse 104 H 09/05/22 14:00 Resp 30 H 09/05/22 14:00 BP 128/47 09/02/22 15:00 Pulse Ox 100 09/05/22 14:00 FiO2 40 09/05/22 14:00 Intake & Output 09/04/22 09/05/22 09/05/22 18:59 06:59 18:59 Intake Total 2099.646 4981.894 2504.513 Output Total 4605 4515 1485 Balance -2505.354 -2744.568 24.513 Weight 130.2 kg 130.4 kg Intake: IV 872 251 2594 0.9% @ KVO 150 180 120 Anidulafungin 100 mg In 100 100 Sodium Chloride 0.9% 100 ml @ 84 mls/hr IVPB DAILY [facility] Rx#:[id number] Ceftolozane/Tazobactam 0. 200 100 100 75 gm In Sodium Chloride 0.9% 100 ml @ 100 mls/hr IV Q8HR [facility] Rx#:[id number] Fat Emulsion 20% 250 ml 250 In Empty Bag 1 bag @ 21 mls/hr IV TuFr [facility] Rx#: [id number] Lacosamide IV 150 mg In 50 100 50 Sodium Chloride 0.9% 50 ml @ 100 mls/hr IVPB BID [facility] Rx#:[id number] Linezolid 600 mg In 300 300 Dextrose/Water 1 300ml. bag @ 150 mls/hr IVPB Q12H [facility] Rx#:[id number] Normal Saline: Pressure 33 36 24 Bag Phenytoin Sodium Inj 300 50 50 mg In Sodium Chloride 0.9 % 50 ml @ 80 mls/hr IVPB Q12H [facility] Rx#:[id number] Potassium Chloride 20 meq 200 In Water For Injection 1 100ml.bag @ 50 mls/hr IVPB Q2H [facility] Rx#: [id number] Potassium Chloride 20 meq 200 In Water For Injection 1 100ml.bag @ 50 mls/hr IVPB Q2H [facility] Rx#: [id number] levETIRAcetam IV 1,000 mg 100 100 100 In Saline 1 100ml.bag @ 400 mls/hr IVPB Q12HR [facility] Rx#:[id number] Intake, IV Titration 436.646 174.432 150.513 Amount Furosemide 100 mg In 100 100 Sodium Chloride 0.9% 90 ml @ 10 MG/HR 10 mls/hr IV .Q10H [facility] Rx#: [id number] Norepinephrine 32 mg In 94.777 74.432 50.513 Sodium Chloride 0.9% 218 ml @ 0.5 MCG/KG/MIN 25. 547 mls/hr IV .Q9H48M [facility] Rx#:[id number] Potassium Chloride 20 meq 100 In Water For Injection 1 100ml.bag @ 50 mls/hr IVPB Q2H [facility] Rx#: [id number] Sodium Acetate 50 meq 96.417 Potassium Chloride 45 meq Magnesium Sulfate gm 0. 75 gm Calcium Gluconate 3 gm Sodium Chloride 4Meq/ ml Vial 40 meq In Amino Acids 5 %/Dextrose 20 % 1 ,000 ml @ 65 mls/hr IV . BY DURATION [facility] Rx#: [id number] Vasopressin 60 unit In 145.452 Sodium Chloride 0.9% 150 ml @ 0.04 UNITS/MIN 6.12 mls/hr IV .Q24H [facility] Rx#: [id number] Tube Feeding 0 TPN/PPN 780 780 65 TPN 780 780 65 Other 0 Output: Gastric Drainage 125 Urine 3405 3565 1485 Stool 1200 825 Other: Voiding Method Indwelling Catheter Indwelling Catheter Indwelling Catheter ABP, PAP, CO, CI - Last Documented Arterial Blood Pressure 119/51 - Labs CBC & Chem 7: 09/05/22 05:07 09/06/22 05:54 Labs: Abnormal Lab Results - Last 24 Hours (Table) 09/04/22 09/04/22 09/05/22 Range/Units 17:31 20:45 01:00 RBC (3.80-5.40) m/uL Hgb (11.4-16.0) gm/dL Hct (34.0-46.0) % MCHC (31.0-37.0) g/dL RDW (11.5-15.5) % Plt Count (150-450) k/uL Neutrophils # (Manual) (1.3-7.7) k/uL Lymphocytes # (Manual) (1.0-4.8) k/uL Nucleated RBCs (0-0) /100 WBC ABG pCO2 (35-45) mmHg ABG pO2 (83-108) mmHg ABG HCO3 (21-25) mmol/L ABG Total CO2 (19-24) mmol/L Sodium (137-145) mmol/L Potassium (3.5-5.1) mmol/L Chloride (98-107) mmol/L BUN (7-17) mg/dL Glucose (74-99) mg/dL POC Glucose (mg/dL) 141 H 179 H 210 H (70-110) mg/dL AST (14-36) U/L Alkaline Phosphatase (38-126) U/L Total Protein (6.3-8.2) g/dL Albumin (3.5-5.0) g/dL 09/05/22 09/05/22 09/05/22 Range/Units 05:07 05:07 05:13 RBC 3.08 L (3.80-5.40) m/uL Hgb 8.2 L (11.4-16.0) gm/dL Hct 26.7 L (34.0-46.0) % MCHC 30.7 L (31.0-37.0) g/dL RDW 22.0 H (11.5-15.5) % Plt Count 66 L (150-450) k/uL Neutrophils # (Manual) 10.10 H (1.3-7.7) k/uL Lymphocytes # (Manual) 0.42 L (1.0-4.8) k/uL Nucleated RBCs 2 H (0-0) /100 WBC ABG pCO2 (35-45) mmHg ABG pO2 (83-108) mmHg ABG HCO3 (21-25) mmol/L ABG Total CO2 (19-24) mmol/L Sodium 131 L (137-145) mmol/L Potassium 3.2 L (3.5-5.1) mmol/L Chloride 92 L (98-107) mmol/L BUN 88 H (7-17) mg/dL Glucose 194 H (74-99) mg/dL POC Glucose (mg/dL) 211 H (70-110) mg/dL AST 50 H (14-36) U/L Alkaline Phosphatase 206 H (38-126) U/L Total Protein 4.3 L (6.3-8.2) g/dL Albumin 1.8 L (3.5-5.0) g/dL 09/05/22 09/05/22 09/05/22 Range/Units 06:02 09:03 11:52 RBC (3.80-5.40) m/uL Hgb (11.4-16.0) gm/dL Hct (34.0-46.0) % MCHC (31.0-37.0) g/dL RDW (11.5-15.5) % Plt Count (150-450) k/uL Neutrophils # (Manual) (1.3-7.7) k/uL Lymphocytes # (Manual) (1.0-4.8) k/uL Nucleated RBCs (0-0) /100 WBC ABG pCO2 47 H (35-45) mmHg ABG pO2 110 H (83-108) mmHg ABG HCO3 29 H (21-25) mmol/L ABG Total CO2 31 H (19-24) mmol/L Sodium (137-145) mmol/L Potassium (3.5-5.1) mmol/L Chloride (98-107) mmol/L BUN (7-17) mg/dL Glucose (74-99) mg/dL POC Glucose (mg/dL) 126 H 138 H (70-110) mg/dL AST (14-36) U/L Alkaline Phosphatase (38-126) U/L Total Protein (6.3-8.2) g/dL Albumin (3.5-5.0) g/dL Microbiology - Last 24 Hours (Table) 08/29/22 13:29 Blood Culture - Final Blood No Growth after 144 hours Assessment and Plan Assessment: Sepsis, septic shock with multisystem organ failure secondary to acute enterococcus faecalis and Pseudomonas aeruginosa UTI, with acute VRE bacteremia ,abdominal sepsis. Systemic candidiasis. Hypotension, severe, secondary to the above, pressor dependent Necrotic digits of the upper and lower extremities, secondary to chronic sepsis, hypotension and use of pressors Coccyx Pressure ulcer and left heel Septic, metabolic encephalopathy Seizure activity,neurology following Acute on chronic hypoxic respiratory failure, ventilator dependent, secondary to all the above, status post tracheostomy 08/25 Acute on chronic CHF exacerbation, diastolic dysfunction secondary to volume overload Hyponatremia Hyperammonium Hypocalcemia secondary to acute renal failure, improving Protein calorie malnutrition, maintained on TPN Chronic changes of the right lower lobe and small right pleural effusion as per pulmonary Acute on CKD III, secondary to ATN related to the above Persistent Atrial fibrillation with RVR, status post amiodarone drip, In a patient with history of chronic atrial fibrillation. Metabolic acidosis, status post bicarb drip Abdominal pain, constipation, last bowel movement reported 08/05.Films reviewed by general surgery, reporting sigmoid volvulus. Continued clinical wors ening;Probable perforated viscus with pneumoperitoneum reported per CT on 08/20/2022. Leukocytosis Diabetes mellitus, family reports hyperglycemic at home, A1c 6. Recent COVID-19 infection, 06/22 COPD, history of Valvular heart disease, moderate aortic stenosis, preserved LV function Chronic anemia Generalized weakness, gait dysfunction, multiple falls recently reported, recently discharged from [facility] subacute rehab. 08/06/22. History of CVA, TIA History of Hypertension Hyperlipidemia Hypothyroidism Morbid obesity, BMI 56.7 No code, no CPR, no reintubation Plan: Continue on current medication regime ,monitoring and symptomatic treatment. Prognosis poor, rediscussed with at bedside. requesting treatment continue. Questions and concerns addressed. Support and prayer given. Offered to call in spiritual care-patient states that editor newspaper from their denominational has been in already.Multiple consults following/ICU management as per child support investigator. The impression and plan of care has been dictated as directed. : I performed a history and examination of this patient, discussed the same with the dictator. I agree with the dictator's note ,documented as a scribe. Any additional findings or plans will be noted.
--- NOTE | 2022-09-06 18:41 | P.PN ---
Subjective Progress Note Date: 09/06/22 H&P Date: 08/09/22 Chief Complaint: Shortness of breath,Altered mental statConstipation, syncope, hyperglycemia This is a pleasant 87-year-old female with past medical history of CAD, SD, stent placement, aortic stenosis ,chronic hypoxic respiratory failure,on 2 L nasal cannula ,Covid 06/22,COPD, former nicotine dependence, obstructive sleep apnea ,CVA/TIA, diabetes mellitus, hypertension, hyperlipidemia, hypothyroidism, recurrent UTIs,CKD III, urinary retention, anemia, bilateral peripheral neuropathy, gait dysfunction,utilizing walker, falls, morbid obesity-BMI 39.9 and multiple other medical issues brought in via ambulance, on BiPAP to the ER for change in level of consciousness, syncope, nausea, vomiting, hyperglycemia, constipation-on [place], shortness of breath, recently discharged from [facility] subacute rehab on 08/06/2022. Information being obtained from chart and daughter at bedside. Daughter reports they are unsure of her last bowel movement, possibly , 08/03. [facility] documented large bowel movement on 08/04 and 08/05. Reports yesterday blood sugars were running high in the 400s, patient developed nausea and vomiting, change in sensorium, passed out while on the toilet. Reports patient "coughs all the time, but has COPD", no knowledge of fevers, denies chills. Denies chest pain, palpitations, positive shortness of breath. Developed hypotension in the ER in addition to emesis, received fluid bolus .Chest x-ray reported right basilar infiltrate with persistent small right effusion, no overt failure. EKG reported sinus rhythm, troponin negative 1. KUB reported marked gastric distention, additional small bowel loops dilated, possibly retained debris within the rectum and sigmoid colon. 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 NG tube placed in the ER with 1200 MLS bilious output reported overnight. D-dimer elevated 4.73, CT angio chest reported no evidence of pulmonary embolism,more consolidation changes in the right lung base, rule out aspiration. ProBNP 426. UA reported many WBC clumps, 165 WBCs, large leukocytes, negative nitrates, culture pending. Afebrile, on admission temperature 96.7, currently 98.8. WBC 14.3. lactic acid 3.5, repeat level pending. Hemoglobin 10.2, platelets 4:15, a I's within normal limits, BUN 40, creatinine 1.5. BiPAP weaned off, currently requiring 6 L nasal cannula O2 to maintain O2 sats in the low 90s. 08/10/22 Continued to decline throughout the night requiring ICU admission, maintained on vasopressin, Levophed and bicarb drips. Received fluid boluses throughout the night. Lactic acid decreased to 2.1. Low urine output on Lasix IV push. BUN 81, creatinine 2.68. Hyperkalemic, received calcium, insulin, D50, sodium bicarbonate. Chest x-ray reporting stable bilateral lower lobe infiltrate and small effusion. Afebrile, T-max 99.7. Continues on Levaquin, WBC normalized today. Cefepime added to antibiotic regimen today. Preliminary Urine cultures reporting group D enterococcus 50-100,000 colonies and gram-negative bacilli 10 and 49,000 colonies. 07/03 Blood cultures reporting GNB. Hemoglobin 8.2, platelets 311. 08/11/2022 Vent dependent, FiO2 60%/+5 of PEEP. Chest x-ray reports stable, no change in bibasilar opacities, pleural effusion unchanged. Continues on the Levophed and vasopressin drips. Febrile to the night, T-max 102.4, WBC increased to 12.2. Lactic acid trended up during the night, received fluid boluses, currently at 3.2. Developed atrial fibrillation with RVR, bolused with amiodarone and currently on amiodarone drip. Urine culture reporting enterococcus faecalis and Pseudomonas aeruginosa.Films reviewed by general surgery, reporting sigmoid volvulus. Recommending conservative management. BUN 79, creatinine 2.74. Hyperglycemic. Hemoglobin 8.6, platelets 349. Anticoagulation remains on hold. 08/21/2022 remains vent dependent, FiO2 50%/+5 of PEEP. Maintained on high doses of levophed, vasopressin. Amiodarone and bicarb drips continue. Receiving IV albumin to be followed by Lasix. Worsening renal function. Staff reports no urine output 24 hours. Bicarb 16, BUN 76, creatinine 1.73. Repeat CT of abdomen and pelvis completed yesterday, reporting moderate volume pneumo peritoneum, suspected perforation of distal colonic bowel, extensive distal bowel pneumatosis. Surgery discussed findings with family, high risk for surgical intervention. Family decided against surgical intervention,but to continue with nonsurgical care. T-max 100.6. Maintained on Zerbaxa, Eraxis, daptomycin .Seizure-like activity reported yesterday afternoon, placed on Keppra, reoccurred in the weaver apprentice hours 2. Brain CT reported no acute intracranial process .EEG completed, results pending. 08/22/2022 vent dependent, 40% FiO2, +5 of PEEP. Staff reports patient desats quickly with turning. Chest x-ray reporting bibasilar atelectasis, consolidation, minimally increased, possible tiny right basilar pleural effusion. Continues on high doses of pressors, digits dusky. Maintained on bicarb drip. Telemetry atrial fibrillation, fast ventricular rate on amiodarone drip. Remains on antibiotics as per infectious disease.BUN 83, creatinine 1.79. T-max 102, WBC decreased, 16.5 08/23/2022 FiO2 50%/+5 of PEEP. Chest x-ray reported no significant change .Continues on pressor support. Maintained on amiodarone drip, heart rates currently in the 1 teens to 120s. Continues on daptomycin, Zerbexa and Eraxis.T-max 100.9, WBC 15.3. BUN 83, creatinine 2.13. WBC decreased to 15.3. Receiving IV albumin, Albumin currently 1.6. Ionized calcium 3.4, receiving supplementation. 08/24/2022 continues in A. fib, heart rates 110 to 130s on amiodarone drip. Seizure activity yesterday reported with facial twitching lasting approximately half an hour EEG performed-reported abnormal 2-1/2 hour EEG suggesting epileptiform focus involving midline occipital parietal region. Vimpat and Keppra doses increased. Continue to have seizure activity today, right-sided face twitching, trembling of arm reported, repeat EEG in progress. Versed drip initiated. Brain Ct pending. Maximized on both norepi and vasopressin. Digits dusky, declining comfort care at this time. Continues on bicarb drip. Remains vent dependent on FiO2 50%/+5 of PEEP. Now trach and PEG are being considered. 08/25/2022 maximized on pressors, levophed and vasopressin. Mechanical ventilator-dependent, FiO2 50%/+5 of PEEP. Chest x-ray reporting worsening bibasilar consolidation ,bilateral pneumonia. Family meeting via phone this morning with Dr. Hartman PCP, regarding poor prognosis, futile condition. Scheduled for tracheostomy and PEG-consent pending. Continues on amiodarone, bicarb drips. TPN. Continues to have seizure activity, on Versed drip, Dilantin added to med regimen. Afebrile, worsening WBC, 21.7, potassium 3, receiving supplementation. BUN 79, creatinine 1.87. Ionized calcium 3.4, supplemented. 08/28/2022 Remains vent dependent, FiO2 45%/+10 of PEEP status post tracheostomy 08/25. Nebulized bronchodilators, IV steroids. Receiving TPN/lipids. Requiring insulin drip for hyperglycemia, blood sugars currently ranging 160s to 170s.Ongoing seizures, continues on Versed drip, Dilantin, Keppra, Vimpat. EEG repeated yesterday, reported severely abnormal, suppression worsening-seen with severe anoxic or toxic metabolic encephalopathy, nonconvulsive generalized status epilepticus cannot be ruled out. Maintained on vasopressin, Levophed and Lasix drips. Antibiotics as per infectious disease. Afebrile, WBC 22.4. 08/29/2022 remains vent dependent, FiO2 45%/+10 of PEEP. Chest x-ray reporting bilateral infiltrates and pleural effusion, pneumonia versus CHF. PEG tube unable to be placed, please refer to the surgeon's note.Maintained on vasopressin, Levophed Lasix, Versed and Ativan drips. Repeat EEG pending. Continues on antibiotics of Eraxis, Zyvox and Zerbaxa. Afebrile, WBC 22.6. Hemoglobin 6.5, receiving one unit of packed RBCs. Platelets 255. 08/30/2022 remains vent dependent, FiO2 45%/+10 of PEEP. Chest x-ray reporting stable bilateral infiltrates and pleural effusion. Continues on TPN, Lasix drip, norepinephrine, vasopressin. Maintained on Eraxis, Zyvox and Zerbaxa. Afebrile, WBC 20.7. Ammonia 50.EEG yesterday -refer to neurology report.Versed and Ativan drips turned off, 2 hour EEG recently started. Received one unit of packed RBCs yesterday with current hemoglobin 8.1, platelets 221. Sodium decreased to 126. Bicarb 21, BUN 81, creatinine 1.62. Albumin 1.6. Nephrology discussing renal replacement therapy secondary to fluid volume overload if family continues with aggressive therapy. 08/31/22 continues on vasopressor support, antifungal/antibiotics, oral antiarrhythmics, TPN, IV steroids, nebulized bronchodilators, IV diuretics, seizure management including Versed and Ativan drips,lactulose, mechanical ventilation with FiO2 45% status post 10 of PEEP. Chest x-ray reporting potentially developing mild pulmonary vascular congestion, ongoing right greater than left bibasilar consolidation/atelectasis and small effusions. Maintained on Lasix drip, severe volume overload. Nephrology discussing potential SLED as requesting to continue with current aggressive treatment at this time. 09/01/2022 Tube feeds stopped as patient developed high residuals during the night, maintained on TPN. No clinical seizure activity reported. Neurology workup continues, EEG recently repeated, results pending. Remains vent dependent, FiO2 40%/+10 of PEEP, pressor dependent and on IV Lasix. BUN 86, creatinine 1.65. Continues on antibiotics/antifungal. Afebrile. Family undecided regarding SLED/renal replacement treatment option discussed as per nephrology. 09/04/2022 Remains off of sedation, Vent dependent FIO2 40%/+8 Peep. Telemetry atrial fibrillation, controlled ventricular rate. Pressor support with both L evophed,Vasopressin, Lasix drips. 24-hour I&O reporting a negative fluid balance. High residuals, unable to tolerate tube feeds with NG ,currently on TPN for nutritional support.loose stool, FMS present.Blood sugars currently 150s. Brain CT repeated yesterday reporting cerebral atrophy, no acute i ntracranial abnormality, no change. Maintained on Zyvox Zerbex and Eraxis . Afebrile, WBC decreased to 14.6. Hemoglobin 8.4, platelets 104. Sodium 129, BUN 90, creatinine 1.2. T bili 0.4 AST 46 ALT 27, alk phos 187. ammonia level XX. Albumin 1.8. 09/05/2022 FiO2 40%/Peep decreased to +6. Continues on dual pressors, digits of upper and lower extremities necrotic. Midodrin added to med regimen. Telemetry controlled A. fib. Maintained on Zyvox Zerbex and Eraxis,fevers resolved, WBC normalized, repeat blood cultures of 2/28 reporting no growth. Nutritional support via TPN, related to patient unable to tolerate enteral feeding/high residuals. FMS in place with loose stools Diuresing on Lasix drip, runny 4 hour I&O reflecting a negative fluid balance. Renal function improving, BUN 88, creatinine 1.sodium 131, bicarb 27. Hemoglobin 8.2, platelets decreased ,66. 3/02/21 clinically unchanged. BUN 92, creatinine 0.94. Remains vent dependent, on dual pressors, Lasix drip, TPN ,antibiotics and antifungal. Family at bedside, updated-prognosis extremely poor. is not ready to proceed with comfort care-speaks of eventually vent weaning, but does not want morphine used and does not want medications including the pressors stopped. Rediscussed patient losing her digits secondary to the pressors- skin sloughing/necrotic digits. Spouse discloses that he is unable to be at peace with stopping these medications. Maintained on anticonvulsants as per neurology.No seizure activity reported;per neurology EEG shows subclinical partial status and family does not want any more EEGs at this time. Objective - Vital Signs Vital signs: Vital Signs Temp 97.4 F L 09/06/22 12:00 Pulse 100 09/06/22 17:18 Resp 30 H 09/06/22 16:45 BP 128/47 09/02/22 15:00 Pulse Ox 100 09/06/22 16:45 FiO2 40 09/06/22 16:00 Intake & Output 09/05/22 09/06/22 09/06/22 18:59 06:59 18:59 Intake Total 4869.799 7411.342 1103.897 Output Total 5769 3295 2120 Balance -848.367 -298.658 -1016.103 Weight 130.4 kg 129.6 kg Intake: IV 1484 1296 245 0.9% @ KVO 195 165 150 Anidulafungin 100 mg In 100 Sodium Chloride 0.9% 100 ml @ 84 mls/hr IVPB DAILY [facility] Rx#:[id number] Ceftolozane/Tazobactam 0. 200 100 75 gm In Sodium Chloride 0.9% 100 ml @ 100 mls/hr IV Q8HR [facility] Rx#:[id number] Fat Emulsion 20% 250 ml 250 63 In Empty Bag 1 bag @ 21 mls/hr IV TuFr [facility] Rx#: [id number] Lacosamide IV 150 mg In 50 50 Sodium Chloride 0.9% 50 ml @ 100 mls/hr IVPB BID [facility] Rx#:[id number] Linezolid 600 mg In 300 150 Dextrose/Water 1 300ml. bag @ 150 mls/hr IVPB Q12H [facility] Rx#:[id number] Normal Saline: Pressure 39 33 30 Bag Phenytoin Sodium Inj 300 50 50 mg In Sodium Chloride 0.9 % 50 ml @ 80 mls/hr IVPB Q12H [facility] Rx#:[id number] Potassium Chloride 20 meq 200 In Water For Injection 1 100ml.bag @ 50 mls/hr IVPB Q2H [facility] Rx#: [id number] Sodium Acetate 50 meq 585 65 Potassium Chloride 45 meq Magnesium Sulfate gm 0. 75 gm Calcium Gluconate 3 gm Sodium Chloride 4Meq/ ml Vial 40 meq In Amino Acids 5 %/Dextrose 20 % 1 ,000 ml @ 65 mls/hr IV . BY DURATION [facility] Rx#: [id number] levETIRAcetam IV 1,000 mg 100 100 In Saline 1 100ml.bag @ 400 mls/hr IVPB Q12HR [facility] Rx#:[id number] Intake, IV Titration 079.465 8764.342 273.897 Amount Furosemide 100 mg In 88.5 100 93.167 Sodium Chloride 0.9% 90 ml @ 10 MG/HR 10 mls/hr IV .Q10H [facility] Rx#: [id number] Mvi, Adult No.4 with Vit 1055.167 K 10 ml Trace (Conc-1Ml/ Dose) 1 ml Sodium Acetate 50 meq Potassium Chloride 54 meq Magnesium Sulfate gm 0.75 gm Calcium Gluconate 3 gm Sodium Chloride 4Meq/ml Vial 60 meq In Amino Acids 5 %/Dextrose 20 % 1 ,000 ml @ 65 mls/hr IV . BY DURATION [facility] Rx#: [id number] Norepinephrine 32 mg In 56.133 65.175 73.528 Sodium Chloride 0.9% 218 ml @ 0.5 MCG/KG/MIN 25. 547 mls/hr IV .Q9H48M [facility] Rx#:[id number] Potassium Chloride 20 meq 100 In Water For Injection 1 100ml.bag @ 50 mls/hr IVPB Q2H [facility] Rx#: [id number] Vasopressin 60 unit In 153 107.202 Sodium Chloride 0.9% 150 ml @ 0.04 UNITS/MIN 6.12 mls/hr IV .Q24H [facility] Rx#: [id number] Tube Feeding 0 TPN/PPN 65 585 TPN 65 585 Other 0 Output: Gastric Drainage 200 250 Urine 2795 2065 1870 Stool 550 Other: Voiding Method Indwelling Catheter Indwelling Catheter Indwelling Catheter ABP, PAP, CO, CI - Last Documented Arterial Blood Pressure 128/54 - Exam GENERAL EXAM: on mechanical ventilation/tracheostomy.unresponsive. HEENT: Normocephalic. NECK: supple, unable to assess for JVD. LUNGS: Equal air entry, diminished, scattered rhonchi, bibasilar crackles CV: S1 and S2. Irregular Rhythm with no audible murmur. ABDOMEN:Distended, unable to auscultate bowel sounds. FMS with liquid brown stooling SKIN: Edematous, pitting, weeping CENTRAL NERVOUS SYSTEM: Unable to assess, on mechanical ventilation EXTREMITIES: Positive peripheral edema, necrotic nail beds, skin peeling. Microbiology 08/29/22 13:29 Blood Blood Culture - Preliminary No Growth after 120 hours 08/23/22 11:40 Blood Blood Culture Gram Stain - Final 08/23/22 11:40 Blood Blood Culture - Final Enterococcus faecium VRE 08/19/22 22:00 Blood Blood Culture Gram Stain - Final 08/19/22 22:00 Blood Blood Culture - Final Enterococcus faecium 08/19/22 18:00 Stool Stool Culture - Final 08/23/22 11:40 Blood Blood Culture - Final 08/19/22 21:07 Sputum Gram Stain - Final 08/19/22 21:07 Sputum Sputum Culture - Final Methicillin resist S. aureus Ange albicans 08/19/22 22:00 Blood Blood Culture - Final 08/14/22 15:00 Blood Blood Culture - Final No Growth after 144 hours 08/10/22 17:00 Blood Blood Culture - Final No Growth after 144 hours 08/08/22 13:30 Blood Blood Culture Gram Stain - Final 08/08/22 13:30 Blood Blood Culture - Final Anaerobic Gm Negative Bacilli 08/09/22 14:19 Blood Blood Culture - Final No Growth after 144 hours 08/08/22 13:00 Blood Blood Culture - Final No Growth after 144 hours 08/11/22 16:05 Blood Blood Culture Gram Stain - Final 08/11/22 16:05 Blood Blood Culture - Final Ange albicans 08/11/22 17:06 Sputum Gram Stain - Final 08/11/22 17:06 Sputum Sputum Culture - Final Ange albicans 08/11/22 16:05 Blood Blood Culture - Final 08/08/22 13:10 Urine,Voided Urine Culture - Final Enterococcus faecalis Pseudomonas aeruginosa 08/08/22 13:30 Blood Blood Culture - Final - Labs CBC & Chem 7: 09/05/22 05:07 09/06/22 05:54 Labs: Abnormal Lab Results - Last 24 Hours (Table) 09/05/22 09/05/22 09/06/22 Range/Units 18:25 20:50 00:36 ABG pCO2 (35-45) mmHg ABG pO2 (83-108) mmHg ABG HCO3 (21-25) mmol/L ABG Total CO2 (19-24) mmol/L ABG O2 Saturation (94-97) % Sodium (137-145) mmol/L Potassium (3.5-5.1) mmol/L Chloride (98-107) mmol/L BUN (7-17) mg/dL Glucose (74-99) mg/dL POC Glucose (mg/dL) 220 H 193 H 160 H (70-110) mg/dL Calcium (8.4-10.2) mg/dL AST (14-36) U/L Alkaline Phosphatase (38-126) U/L Total Protein (6.3-8.2) g/dL Albumin (3.5-5.0) g/dL 09/06/22 09/06/22 09/06/22 Range/Units 04:20 05:54 06:22 ABG pCO2 47 H (35-45) mmHg ABG pO2 133 H (83-108) mmHg ABG HCO3 30 H (21-25) mmol/L ABG Total CO2 32 H (19-24) mmol/L ABG O2 Saturation 99.6 H (94-97) % Sodium 133 L (137-145) mmol/L Potassium 3.2 L (3.5-5.1) mmol/L Chloride 95 L (98-107) mmol/L BUN 92 H (7-17) mg/dL Glucose 140 H (74-99) mg/dL POC Glucose (mg/dL) 158 H (70-110) mg/dL Calcium 8.3 L (8.4-10.2) mg/dL AST 45 H (14-36) U/L Alkaline Phosphatase 196 H (38-126) U/L Total Protein 4.2 L (6.3-8.2) g/dL Albumin 1.9 L (3.5-5.0) g/dL 09/06/22 09/06/22 09/06/22 Range/Units 08:59 11:55 15:56 ABG pCO2 (35-45) mmHg ABG pO2 (83-108) mmHg ABG HCO3 (21-25) mmol/L ABG Total CO2 (19-24) mmol/L ABG O2 Saturation (94-97) % Sodium (137-145) mmol/L Potassium (3.5-5.1) mmol/L Chloride (98-107) mmol/L BUN (7-17) mg/dL Glucose (74-99) mg/dL POC Glucose (mg/dL) 138 H 153 H 151 H (70-110) mg/dL Calcium (8.4-10.2) mg/dL AST (14-36) U/L Alkaline Phosphatase (38-126) U/L Total Protein (6.3-8.2) g/dL Albumin (3.5-5.0) g/dL Assessment and Plan Assessment: Sepsis, septic shock with multisystem organ failure secondary to acute enterococcus faecalis and Pseudomonas aeruginosa UTI, with acute VRE bacteremia ,abdominal sepsis. Systemic candidiasis. Hypotension, severe, secondary to the above, pressor dependent Necrotic digits of the upper and lower extremities, secondary to chronic sepsis, hypotension and use of pressors Coccyx Pressure ulcer and left heel Septic, metabolic encephalopathy Seizure activity,neurology following Acute on chronic hypoxic respiratory failure, ventilator dependent, secondary to all the above, status post tracheostomy 08/25 Acute on chronic CHF exacerbation, diastolic dysfunction secondary to volume overload Hyponatremia Hyperammonium Hypocalcemia secondary to acute renal failure, improving Protein calorie malnutrition, maintained on TPN Chronic changes of the right lower lobe and small right pleural effusion as per pulmonary Acute on CKD III, secondary to ATN related to the above Persistent Atrial fibrillation with RVR, status post amiodarone drip, In a patient with history of chronic atrial fibrillation. Metabolic acidosis, status post bicarb drip Abdominal pain, constipation, last bowel movement reported 2.Films reviewed by general surgery, reporting sigmoid volvulus. Continued clinical worsening;Pr obable perforated viscus with pneumoperitoneum reported per CT on 08/20/2022. Leukocytosis Diabetes mellitus, family reports hyperglycemic at home, A1c 6. Recent COVID-19 infection, 06/22 COPD, history of Valvular heart disease, moderate aortic stenosis, preserved LV function Chronic anemia Generalized weakness, gait dysfunction, multiple falls recently reported, recently discharged from [facility] subacute rehab. 08/06/22. History of CVA, TIA History of Hypertension Hyperlipidemia Hypothyroidism Morbid obesity, BMI 56.7 No code, no CPR, no reintubation Plan: Continue on current medication regime ,monitoring and symptomatic treatment. Prognosis poor, requesting treatment continue. Multiple consults following/ICU management as per assistant vice president. The impression and plan of care has been dictated as directed. : I performed a history and examination of this patient, discussed the same with the dictator. I agree with the dictator's note ,documented as a scribe. Any additional findings or plans will be noted.
[2022-09-06 19:51] LABS: Glucose,Whole Blood 156 mg/dL (70-110)
[2022-09-06] MEDS: INSULIN DETEMIR (LEVEMIR) 100 UNIT/ML SYR SQ SCH (20:52)
--- NOTE | 2022-09-06 21:23 | P.PN ---
Subjective Progress Note Date: 09/06/22 Principal diagnosis: Sepsis/septic shock Patient is a 87-year-old female with multiple comorbidities presented to the hospital with a syncopal episode weakness subsequently hypotension, sepsis requiring transfer to the ICU and intubation on the vent. She patient did have a CT of abdominal pelvis completed on 08/20/2022 with evidence of pneumoperitoneum Gen. surgery discussed with the family currently being treated medically On today's evaluation that is 09/06/2022, the patient continues to be afebrile, the patient is requiring about same pressor support to maintain her blood pressure per the nursing staff, the patient FiO2 is stable at 40 %, no purulent secretions through the ET , patient did have NG to suction, tube feeds has been put on hold , patient did have a fecal management system for her diarrhea however no significant output has been reported Objective - Vital Signs Vital signs: Vital Signs Temp 97.2 F L 09/06/22 04:00 Pulse 116 H 09/06/22 08:59 Resp 30 H 09/06/22 07:00 BP 128/47 09/02/22 15:00 Pulse Ox 100 09/06/22 07:00 FiO2 40 09/06/22 08:31 Intake & Output 09/05/22 09/06/22 09/06/22 18:59 06:59 18:59 Intake Total 2417.737 3398.342 83 Output Total 2795 2815 220 Balance -848.367 -298.658 -137 Weight 130.4 kg 129.6 kg Intake: IV 1484 1296 83 0.9% @ KVO 195 165 15 Anidulafungin 100 mg In 100 Sodium Chloride 0.9% 100 ml @ 84 mls/hr IVPB DAILY [facility] Rx#:[id number] Ceftolozane/Tazobactam 0. 200 100 75 gm In Sodium Chloride 0.9% 100 ml @ 100 mls/hr IV Q8HR [facility] Rx#:[id number] Fat Emulsion 20% 250 ml 250 63 In Empty Bag 1 bag @ 21 mls/hr IV TuFr [facility] Rx#: [id number] Lacosamide IV 150 mg In 50 50 Sodium Chloride 0.9% 50 ml @ 100 mls/hr IVPB BID [facility] Rx#:[id number] Linezolid 600 mg In 300 150 Dextrose/Water 1 300ml. bag @ 150 mls/hr IVPB Q12H [facility] Rx#:[id number] Normal Saline: Pressure 39 33 3 Bag Phenytoin Sodium Inj 300 50 50 mg In Sodium Chloride 0.9 % 50 ml @ 80 mls/hr IVPB Q12H [facility] Rx#:[id number] Potassium Chloride 20 meq 200 In Water For Injection 1 100ml.bag @ 50 mls/hr IVPB Q2H [facility] Rx#: [id number] Sodium Acetate 50 meq 585 65 Potassium Chloride 45 meq Magnesium Sulfate gm 0. 75 gm Calcium Gluconate 3 gm Sodium Chloride 4Meq/ ml Vial 40 meq In Amino Acids 5 %/Dextrose 20 % 1 ,000 ml @ 65 mls/hr IV . BY DURATION [facility] Rx#: [id number] levETIRAcetam IV 1,000 mg 100 100 In Saline 1 100ml.bag @ 400 mls/hr IVPB Q12HR [facility] Rx#:[id number] Intake, IV Titration 940.733 3247.342 Amount Furosemide 100 mg In 88.5 100 Sodium Chloride 0.9% 90 ml @ 10 MG/HR 10 mls/hr IV .Q10H [facility] Rx#: [id number] Mvi, Adult No.4 with Vit 1055.167 K 10 ml Trace (Conc-1Ml/ Dose) 1 ml Sodium Acetate 50 meq Potassium Chloride 54 meq Magnesium Sulfate gm 0.75 gm Calcium Gluconate 3 gm Sodium Chloride 4Meq/ml Vial 60 meq In Amino Acids 5 %/Dextrose 20 % 1 ,000 ml @ 65 mls/hr IV . BY DURATION [facility] Rx#: [id number] Norepinephrine 32 mg In 56.133 65.175 Sodium Chloride 0.9% 218 ml @ 0.5 MCG/KG/MIN 25. 547 mls/hr IV .Q9H48M [facility] Rx#:[id number] Potassium Chloride 20 meq 100 In Water For Injection 1 100ml.bag @ 50 mls/hr IVPB Q2H [facility] Rx#: [id number] Vasopressin 60 unit In 153 Sodium Chloride 0.9% 150 ml @ 0.04 UNITS/MIN 6.12 mls/hr IV .Q24H [facility] Rx#: [id number] Tube Feeding 0 TPN/PPN 65 TPN 65 Other 0 Output: Gastric Drainage 200 Urine 2795 2065 220 Stool 550 Other: Voiding Method Indwelling Catheter Indwelling Catheter ABP, PAP, CO, CI - Last Documented Arterial Blood Pressure 118/49 - Exam GENERAL DESCRIPTION: An elderly female intubated on the vent RESPIRATORY SYSTEM: Unlabored breathing , decreased breath sounds at bases HEART: S1 S2 regular rate and rhythm , ABDOMEN: Soft , abdominal distention EXTREMITIES: Diffuse swelling bilateral lower extremity no redness - Labs CBC & Chem 7: 09/05/22 05:07 09/06/22 05:54 Labs: Abnormal Lab Results - Last 24 Hours (Table) 09/05/22 09/05/22 09/05/22 Range/Units 11:52 18:25 20:50 ABG pCO2 (35-45) mmHg ABG pO2 (83-108) mmHg ABG HCO3 (21-25) mmol/L ABG Total CO2 (19-24) mmol/L ABG O2 Saturation (94-97) % Sodium (137-145) mmol/L Potassium (3.5-5.1) mmol/L Chloride (98-107) mmol/L BUN (7-17) mg/dL Glucose (74-99) mg/dL POC Glucose (mg/dL) 138 H 220 H 193 H (70-110) mg/dL Calcium (8.4-10.2) mg/dL AST (14-36) U/L Alkaline Phosphatase (38-126) U/L Total Protein (6.3-8.2) g/dL Albumin (3.5-5.0) g/dL 09/06/22 09/06/22 09/06/22 Range/Units 00:36 04:20 05:54 ABG pCO2 (35-45) mmHg ABG pO2 (83-108) mmHg ABG HCO3 (21-25) mmol/L ABG Total CO2 (19-24) mmol/L ABG O2 Saturation (94-97) % Sodium 133 L (137-145) mmol/L Potassium 3.2 L (3.5-5.1) mmol/L Chloride 95 L (98-107) mmol/L BUN 92 H (7-17) mg/dL Glucose 140 H (74-99) mg/dL POC Glucose (mg/dL) 160 H 158 H (70-110) mg/dL Calcium 8.3 L (8.4-10.2) mg/dL AST 45 H (14-36) U/L Alkaline Phosphatase 196 H (38-126) U/L Total Protein 4.2 L (6.3-8.2) g/dL Albumin 1.9 L (3.5-5.0) g/dL 09/06/22 09/06/22 Range/Units 06:22 08:59 ABG pCO2 47 H (35-45) mmHg ABG pO2 133 H (83-108) mmHg ABG HCO3 30 H (21-25) mmol/L ABG Total CO2 32 H (19-24) mmol/L ABG O2 Saturation 99.6 H (94-97) % Sodium (137-145) mmol/L Potassium (3.5-5.1) mmol/L Chloride (98-107) mmol/L BUN (7-17) mg/dL Glucose (74-99) mg/dL POC Glucose (mg/dL) 138 H (70-110) mg/dL Calcium (8.4-10.2) mg/dL AST (14-36) U/L Alkaline Phosphatase (38-126) U/L Total Protein (6.3-8.2) g/dL Albumin (3.5-5.0) g/dL Assessment and Plan (1) Sepsis Current Visit: Yes Status: Acute Code(s): A41.9 - SEPSIS, UNSPECIFIED ORGANISM SNOMED Code(s): 43457115 Plan: 1patient was in the hospital with sepsis and septic shock initially concern for multidrug-resistant Pseudomonas UTI, patient also have a candidemia secondary to possible abdominal source and now with a VRE bacteremia source likely abdominal 2patient did have evidence of colonic perforation and peritonitis being managed medically as the patient considered to be high risk for any surgical procedure 3patient did have persistent VRE bacteremia and could be related to the multiple lines , patient will benefit from removal of those lines to control her bacteremia, patient did have a repeat blood cultures on 08/29/2022 those are negative so far 4-the patient clinical condition remains to be guarded however the patient did have resolution of her fever and repeat blood culture has been negative so far, the patient white count has normalized as of 09/05/2022, no CBC was done today 5- patient condition remains to be guarded, patient continue with current broad- spectrum antibiotic of Zyvox Zerbex and Eraxis and will monitor clinical course closely Time with Patient: Less than 30
[2022-09-06 23:39] LABS: Glucose,Whole Blood 129 mg/dL (70-110)
[2022-09-07] MEDS: PHENYTOIN SODIUM INJ 300 MG in SODIUM CHLORIDE 0.9% 50 ML IVPB SCH ×2 (00:32→12:25)
[2022-09-07] MEDS: INSULIN ASPART (NovoLOG) 100 UNIT/ML VIAL SQ SCH ×6 (00:51→20:07)
[2022-09-07] MEDS: CEFTOLOZANE/TAZOBACTAM 1.5 GM in SODIUM CHLORIDE 0.9% 100 ML IV SCH ×3 (00:55→16:19)
[2022-09-07] MEDS: LINEZOLID 600 MG in DEXTROSE/WATER 1 300ML.BAG IVPB SCH ×2 (01:55→13:13)
[2022-09-07 04:12] LABS: Glucose,Whole Blood 176 mg/dL (70-110)
[2022-09-07 05:48] LABS: Albumin 1.8 g/dL (3.5-5.0); Calcium 8.3 mg/dL (8.4-10.2); Magnesium 1.8 mg/dL (1.6-2.3); Phosphorus 2.4 mg/dL (2.5-4.5); Total Bilirubin 0.5 mg/dL (0.2-1.3); Total Protein 4.2 g/dL (6.3-8.2)
[2022-09-07 05:54] LABS: ABG Base Excess 7.1 mmol/L; ABG HCO3 31 mmol/L (21-25); ABG Oxygen Saturation 97.5 % (94-97); ABG PCO2 45 mmHg (35-45); ABG PH 7.45 (7.35-7.45); ABG PO2 88 mmHg (83-108); ABG TCO2 33 mmol/L (19-24); Allen Test Performed? Yes
[2022-09-07 06:00] LABS: Potassium 2.6 mmol/L (3.5-5.1)
[2022-09-07] MEDS ORDERED: Potassium Replacement Protocol 1 EACH MISC MISCELLANE PRN ×2 (06:14→06:23)
[2022-09-07] MEDS: POTASSIUM CHLORIDE 20 MEQ in WATER FOR INJECTION 1 100ML.BAG IVPB STA ×2 (06:32→08:23)
[2022-09-07] MEDS: MIDODRINE 5 MG TAB PO SCH ×3 (06:40→16:30)
[2022-09-07 07:59] LABS: Glucose,Whole Blood 150 mg/dL (70-110)
[2022-09-07] MEDS: ANIDULAFUNGIN 100 MG in SODIUM CHLORIDE 0.9% 100 ML IVPB SCH (08:03)
[2022-09-07] MEDS: AMIODARONE 200 MG TAB PO SCH ×2 (08:03→20:07)
[2022-09-07] MEDS: levETIRAcetam IV 1,000 MG in SALINE 1 100ML.BAG IVPB SCH ×2 (08:03→20:08)
[2022-09-07] MEDS: PANTOPRAZOLE 40 MG/10 ML VIAL IVP SCH (08:03)
[2022-09-07] MEDS: NOREPINEPHRINE 32 MG in SODIUM CHLORIDE 0.9% 218 ML IV SCH (08:04)
[2022-09-07] MEDS: metOLazone 5 MG TAB PO SCH ×2 (08:04→20:07)
[2022-09-07 08:17] LABS: Anisocytosis Moderate; HCT 24.7 % (34.0-46.0); Hypochromasia Slight; MCHC 32.5 g/dL (31.0-37.0); MCV 86.1 fL (80.0-100.0); Mean Platelet Volume 9.4; Microcytosis Slight; Poikilocytosis Moderate; RBC 2.86 m/uL (3.80-5.40); RDW 22.4 % (11.5-15.5); WBC 7.3 k/uL (3.8-10.6)
[2022-09-07] MEDS: ALBUTEROL NEBULIZED 2.5 MG/3 ML INHALATION SCH ×4 (08:40→20:47)
[2022-09-07] MEDS: IPRATROPIUM 0.5 MG/2.5 ML NEBU INHALATION SCH ×4 (08:40→20:47)
[2022-09-07 08:46] LABS: Platelet Count 23 k/uL (150-450)
[2022-09-07] MEDS: LACOSAMIDE IV 150 MG in SODIUM CHLORIDE 0.9% 50 ML IVPB SCH ×2 (08:49→20:35)
--- NOTE | 2022-09-07 08:50 | P.PN ---
Subjective Progress Note Date: 09/05/22 09/05/2022: Patient was seen for a follow-up. Patient's and their daughter was present today. Patient is essentially unchanged. Patient's believes that she is responding to him. Patient sometimes has a slight twitch of the chin or sometimes twitches of her eyes, which he believes is response. He tried multiple times to get a response from the patient in front of me, but there was no response at all. Some twitches were reflexive, could be epileptic as well. 09/04/2022: Patient was seen for a follow-up. Patient's daughter was present. Patient was seen by Dr. Edouard Peres in the previous 7 days. Please refer to his notes for details. Patient at present on Levophed 0.12 g, and vasopressin 0.04 g. Patient is of Versed and Ativan since 08/30/2022. There is no obvious physical seizure activity. Patient had numerous EEGs, which continues to show s ubclinical status. Patient's family believes that she is responding, as her chin moved slightly and she is slightly moves her eyes with her lids closed. She may still slightly open her eyes, which appears reflexive rather than involving treat appears. No seizure-like activity noticed at this time either. Patient continues to have severe blackening of the fingertips and the toes, and some sloughing of the skin of the toes. 08/27/2022: Patient was seen for a follow-up. Patient continues to be significantly encephalopathic. No obvious shoulder twitching on the right side was observed. Patient currently on Versed drip 7 mg per hour. Also on other medications as mentioned from yesterday. Patient has tracheostomy. Awaiting PEG placement. Patient currently on Levophed at 36 mcg/m(0.25 g microgram per minute), and vasopressin 0.02 units per minute. 08/26/2022: Patient was seen for a follow-up. Patient is clinically unchanged. However the seizure-like activity involving right shoulder has completely resolved. Patient currently on Versed 7 mg/h drip. Also on amiodarone, norepinephrine 0.47 mcg/mg per hour, vasopressin 0.04 units per minute. Also on bicarbonate drip. Patient has not had PEG tube placed yet. Patient's believes that when the PEG tube is placed, she will get nutrition and she will get better. Also discussed with patient's daughter and her , who was sitting in the waiting area. Patient's also believes the seizures are related to issues with the lower back region. 08/25/2022: Patient was seen for a follow-up. Patient's and patient's daughter were both present. Patient continues to be comatose. She has intermittent rhythmic twitching of the right shoulder. Patient is already on high dose Keppra, Vimpat adjusted to her renal functions, and Versed drip. Patient already has received Dilantin 1 g IV PB and she is still twitching in the right shoulder. Dilantin level came as 4.5. Patient will receive another loading dose of Dilantin 1 g. Target Dilantin level 12-20. Patient's toes are getting more dusky. Patient has developed some blisters, but that happened before she received Dilantin, therefore not related to Dilantin ALLERGY. Patient has generalized anasarca. 08/24/2022: Patient was seen for a follow-up. Patient is undergoing EEG at this time. Patient continues to have PLEDS. Patient was given Ativan 2 mg without much improvement, then repeated at another 2 mg Ativan. Patient subsequently received Versed 5 mg IV push without improvement, started on Versed drip 5 mg per hour. Patient states on pressors with vasopressin and Levophed. Patient continues to be comatose. Occasional twitching of the right shoulder noticed. I had discussed case with Dr. Hagen yesterday after he reported abnormal prolonged EEG about transfer patient to [facility], but he mentioned that beds were not available. 08/23/2022: Patient was seen for a follow-up. Patient is intubated, not on any sedation. She is on full pressors with Levophed and vasopressin. Also on 3 antibiotics, anti-seizure medications including Keppra and Vimpat. Patient had sporadic seizure-like activity with facial twitching. No definite arm twitching noted. Episode lasted for about 30 minutes. At present there is no twitching noticeable. Patient's and grandchildren were present today. 08/22/2022: Patient was seen for a follow-up. Patient's daughter was also present today. Patient recently had temperature of 100.3. About an hour prior to spiking temperature, patient had some facial twitching, with jaw opening and closing, that lasted for half an hour. No upper extremity movement was noted at that time. Patient continues to be on Keppra 750 mg twice a day. Patient continues to be on high-dose pressors. Patient at present is no code, but full medical treatment. 08/21/2022: Patient initially seen by Dr. Edouard Peres. Please refer to his note for details. Patient is an 87-year-old female with altered mental status. Patient has septic encephalopathy. Patient had a seizure-like activity yesterday at 1:15 PM with head jerking and left arm jerking. Patient was given Ativan 4 mg, and the seizure-like stopped. Patient was given a loading dose of Keppra 1000 mg IV and then maintained on 500 mg twice a day. Patient had again seizure-like activity at 3 AM lasted for 45 minutes and then 5 AM and patient was given another loading dose of 500 mg Keppra. Nurse called me today at around 7:30 AM. It lasted for 20-30 minutes. Patient was again given Valium 4 mg in the seizure- like activity resolved. Patient was started on Vimpat 100 mg twice a day IV PB. EEG was performed today, which was abnormal sleep EEG due to background slowing of moderate degree. Some sharply contoured waves were seen in the left parietal region. No clear-cut epileptiform activity was seen. Objective - Vital Signs Vital signs: Vital Signs Temp 97.9 F 09/06/22 20:00 Pulse 105 H 09/07/22 07:00 Resp 30 H 09/07/22 07:00 BP 128/47 09/02/22 15:00 Pulse Ox 96 09/07/22 05:00 FiO2 40 09/07/22 08:16 Intake & Output 09/06/22 09/07/22 09/07/22 18:59 06:59 18:59 Intake Total 8628.257 4898 145.014 Output Total 2820 2555 125 Balance -1537.927 -959 20.014 Weight 129.6 kg Intake: IV 281 716 18 0.9% @ KVO 180 180 15 Lacosamide IV 150 mg In 50 Sodium Chloride 0.9% 50 ml @ 100 mls/hr IVPB BID [facility] Rx#:[id number] Linezolid 600 mg In 300 Dextrose/Water 1 300ml. bag @ 150 mls/hr IVPB Q12H [facility] Rx#:[id number] Normal Saline: Pressure 36 36 3 Bag Phenytoin Sodium Inj 300 50 mg In Sodium Chloride 0.9 % 50 ml @ 80 mls/hr IVPB Q12H [facility] Rx#:[id number] Sodium Acetate 50 meq 65 Potassium Chloride 45 meq Magnesium Sulfate gm 0. 75 gm Calcium Gluconate 3 gm Sodium Chloride 4Meq/ ml Vial 40 meq In Amino Acids 5 %/Dextrose 20 % 1 ,000 ml @ 65 mls/hr IV . BY DURATION [facility] Rx#: [id number] levETIRAcetam IV 1,000 mg 100 In Saline 1 100ml.bag @ 400 mls/hr IVPB Q12HR [facility] Rx#:[id number] Intake, IV Titration 286.073 100 62.014 Amount Furosemide 100 mg In 93.167 100 Sodium Chloride 0.9% 90 ml @ 10 MG/HR 10 mls/hr IV .Q10H [facility] Rx#: [id number] Norepinephrine 32 mg In 85.704 62.014 Sodium Chloride 0.9% 218 ml @ 0.5 MCG/KG/MIN 25. 547 mls/hr IV .Q9H48M [facility] Rx#:[id number] Vasopressin 60 unit In 107.202 Sodium Chloride 0.9% 150 ml @ 0.04 UNITS/MIN 6.12 mls/hr IV .Q24H [facility] Rx#: [id number] TPN/PPN 715 780 65 TPN 715 780 65 Output: Gastric Drainage 250 Urine 2370 2555 125 Stool 200 Other: Voiding Method Indwelling Catheter Indwelling Catheter ABP, PAP, CO, CI - Last Documented Arterial Blood Pressure 126/52 - Exam Patient is an elderly female, who is comatose with GCS of 3. Patient is not on any sedation. Patient is off Ativan/Versed since 08/30/2022. Patient continues to be on pressors. Patient does not respond to painful stimuli or calling out loudly. No focal seizure noted involving right shoulder. Patient sometimes have a twitch of the eye, or the chin. This could be possible ictal. Pupils are equal, round and reacting bilaterally. Oculocephalics are absent, corneals absent. Reflexes are absent. Patient has significant peripheral edema. Patient's fingers and toes are dusky, cyanotic, now turning black, right side worse than left. Abdomen is soft, appears distended. Patient not able to tolerate NGT feeds. She did have some bowel movement. - Labs CBC & Chem 7: 09/05/22 05:07 09/07/22 05:16 Labs: Abnormal Lab Results - Last 24 Hours (Table) 09/06/22 09/06/22 09/06/22 Range/Units 08:59 11:55 15:56 ABG HCO3 (21-25) mmol/L ABG Total CO2 (19-24) mmol/L ABG O2 Saturation (94-97) % Sodium (137-145) mmol/L Potassium (3.5-5.1) mmol/L Chloride (98-107) mmol/L Carbon Dioxide (22-30) mmol/L BUN (7-17) mg/dL Glucose (74-99) mg/dL POC Glucose (mg/dL) 138 H 153 H 151 H (70-110) mg/dL Calcium (8.4-10.2) mg/dL Phosphorus (2.5-4.5) mg/dL AST (14-36) U/L Alkaline Phosphatase (38-126) U/L Total Protein (6.3-8.2) g/dL Albumin (3.5-5.0) g/dL 09/06/22 09/06/22 09/07/22 Range/Units 19:49 23:38 04:11 ABG HCO3 (21-25) mmol/L ABG Total CO2 (19-24) mmol/L ABG O2 Saturation (94-97) % Sodium (137-145) mmol/L Potassium (3.5-5.1) mmol/L Chloride (98-107) mmol/L Carbon Dioxide (22-30) mmol/L BUN (7-17) mg/dL Glucose (74-99) mg/dL POC Glucose (mg/dL) 156 H 129 H 176 H (70-110) mg/dL Calcium (8.4-10.2) mg/dL Phosphorus (2.5-4.5) mg/dL AST (14-36) U/L Alkaline Phosphatase (38-126) U/L Total Protein (6.3-8.2) g/dL Albumin (3.5-5.0) g/dL 09/07/22 09/07/22 09/07/22 Range/Units 05:16 05:52 07:57 ABG HCO3 31 H (21-25) mmol/L ABG Total CO2 33 H (19-24) mmol/L ABG O2 Saturation 97.5 H (94-97) % Sodium 134 L (137-145) mmol/L Potassium 2.6 L* (3.5-5.1) mmol/L Chloride 95 L (98-107) mmol/L Carbon Dioxide 31 H (22-30) mmol/L BUN 91 H (7-17) mg/dL Glucose 156 H (74-99) mg/dL POC Glucose (mg/dL) 150 H (70-110) mg/dL Calcium 8.3 L (8.4-10.2) mg/dL Phosphorus 2.4 L (2.5-4.5) mg/dL AST 45 H (14-36) U/L Alkaline Phosphatase 190 H (38-126) U/L Total Protein 4.2 L (6.3-8.2) g/dL Albumin 1.8 L (3.5-5.0) g/dL Assessment and Plan Assessment: * Electographic partial status epilepticus, severe, completely medically intr actable, has been laying seizures since at least 08/20/2022 (clinically and unsure if patient was having subclinical seizure prior to that). On keppra, Vimpat and Dilantin. Also has tried IV versed and IV ativan, propofol without improvement. IV sedation has been off since 08/30/22. * Altered mental status multifactorial as mentioned below. Partial status, septic encephalopathy, electrolyte imbalance, renal failure, sepsis, and hepatic encephalopathy. * Probable perforated viscus with pneumoperitoneum. * Septicemia, with leukocytosis and blood culture persistently positive with enterococcus faecium. Blood cultures positive as of 08/23/2022. White cells slightly worse today 21,000. * Hepatic encephalopathy with initial elevated ammonia 214, repeat 210, and yesterday is 171. * Septic shock requiring high-dose pressors and seems has urinary tract infection with urine culture positive for Enterococcus faecalis and Pseudomonas aeruginosa as well as systemic candidiasis Atrial fibrillation on eliquis (which has hx of afib) , currently on hold. Acute on chronic hypoxemic respiratory failure secondary to diastolic congestive heart failure requiring intubation mechanical ventilation Acute on chronic kidney disease History of TIAs/stroke History of coronary artery disease with stent Hypertension Hyperlipidemia Diabetes mellitus Anemia Hypocalcemia, resolved Plan: * Patient probably continues to have some seizure activity with eye twitching sporadically and chin twitch. Her previous EEGs continues to show subclinical partial status. Patient is off Versed and Ativan drip. She continues to be on 3 antiepileptic medications as mentioned below. Patient's daughter believes including her dad, that patient is showing some meaningful response, which I doubt. Family does not want any more EEGs at this time. They're comfortable as long as patient is not exhibiting overt seizure activity. Patient has occasional twitch of the chin, or the eye, which could be possibly ictal phenomenon. * Patient already on high dose Vimpat 150 mg twice a day, Keppra 1000 mg twice a day (both of them adjusted for current renal functions) and Dilantin 300 mg twice a day. Dilantin level was checked 8.8 however her albumin is very low 1.8. Therefore adjusted Dilantin level is 14.8 which is completely therapeutic. Keppra level 68.9 (3-60). Cannot give Depakote because of hyperammonemia. * Continue Ativan 1-2 mg every 4 hours when necessary seizure. * Prolonged 2.5 hours EEG on 08/24/2022 was abnormal with evidence of runs of 1 Hz LPDs plus there was lateralized periodic discharges, sharp and slow and p raj-sharp and slow waves over the left parietal region with spread more anteriorly. There are also some discharges semi-periodic LPDs over the right posterior quadrants. Exact cause remains uncertain. * Repeat CT head 09/03/2022 revealed cerebral atrophy. No acute intracranial abnormality. I personally reviewed CT head, and agreed no acute process. * ID is also on board. Patient currently on Eraxis, Zerbaxa, Zyvox. Per ID, patient is already covered well for meningitis. * Patient's initial Ammonia was 214. Most recent ammonia level 20 on 09/04/2022. Patient on lactulose. * CT abdomen revealed possibility of perforated viscus. Surgery on board. Patient was considered not a candidate for surgery because of hemodynamic instability. * Patient is still on pressors. Patient is showing blackening of the digits of her hands and feet. * Hypocalcemia, resolved. * We'll defer the rest of medical management to primary and ICU team * The patient condition is very critical. Prognosis appears very poor at this time for meaningful recovery. Patient's daughter and patient's are aware of the prognosis. Patient's tried numerous attempts to wake up the patient on get her attention, but in vain. Patient's became somewhat emotional. He has informed that he wants to wait for a few more days to see if she comes around.
--- NOTE | 2022-09-07 08:57 | P.PN ---
Subjective Progress Note Date: 09/06/22 09/06/2022: Patient was seen for a follow-up. Patient's daughter was present today. Patient appears more edematous, has developed a couple 1-2 inch big blisters on her lower leg, with serous fluid inside. Patient continues to be on Levophed 0.5 mcg/kg/m and also on norepinephrine 0.04 units per minute. Patient's fingertips hypoxic much worse particularly in the right with significant redness at the borders, with demarcation. The left fingertips appears slightly better. Does have gotten worse. Patient has developed blisters. 09/05/2022: Patient was seen for a follow-up. Patient's and their daughter was present today. Patient is essentially unchanged. Patient's believes that she is responding to him. Patient sometimes has a slight twitch of the chin or sometimes twitches of her eyes, which he believes is response. He tried multiple times to get a response from the patient in front of me, but there was no response at all. Some twitches were reflexive, could be epileptic as well. 09/04/2022: Patient was seen for a follow-up. Patient's daughter was present. Patient was seen by Dr. Edouard Peres in the previous 7 days. Please refer to his notes for details. Patient at present on Levophed 0.12 g, and vasopressin 0.04 g. Patient is of Versed and Ativan since 08/30/2022. There is no obvious physical seizure activity. Patient had numerous EEGs, which continues to show subclinical status. Patient's family believes that she is responding, as her chin moved slightly and she is slightly moves her eyes with her lids closed. She may still slightly open her eyes, which appears reflexive rather than involving treat appears. No seizure-like activity noticed at this time either. Patient continues to have severe blackening of the fingertips and the toes, and some sloughing of the skin of the toes. 08/27/2022: Patient was seen for a follow-up. Patient continues to be significantly encephalopathic. No obvious shoulder twitching on the right side was observed. Patient currently on Versed drip 7 mg per hour. Also on other medications as mentioned from yesterday. Patient has tracheostomy. Awaiting PEG placement. Patient currently on Levophed at 36 mcg/m(0.25 g microgram per minute), and vasopressin 0.02 units per minute. 08/26/2022: Patient was seen for a follow-up. Patient is clinically unchanged. However the seizure-like activity involving right shoulder has completely resolved. Patient currently on Versed 7 mg/h drip. Also on amiodarone, norepinephrine 0.47 mcg/mg per hour, vasopressin 0.04 units per minute. Also on bicarbonate drip. Patient has not had PEG tube placed yet. Patient's believes that when the PEG tube is placed, she will get nutrition and she will get better. Also discussed with patient's daughter and her , who was sitting in the waiting area. Patient's also believes the seizures are related to issues with the lower back region. 08/25/2022: Patient was seen for a follow-up. Patient's and patient's daughter were both present. Patient continues to be comatose. She has intermittent rhythmic twitching of the right shoulder. Patient is already on high dose Keppra, Vimpat adjusted to her renal functions, and Versed drip. Patient already has received Dilantin 1 g IV PB and she is still twitching in the right shoulder. Dilantin level came as 4.5. Patient will receive another loading dose of Dilantin 1 g. Target Dilantin level 12-20. Patient's toes are getting more dusky. Patient has developed some blisters, but that happened before she received Dilantin, therefore not related to Dilantin ALLERGY. Patient has generalized anasarca. 08/24/2022: Patient was seen for a follow-up. Patient is undergoing EEG at this time. Patient continues to have PLEDS. Patient was given Ativan 2 mg without much improvement, then repeated at another 2 mg Ativan. Patient subsequently received Versed 5 mg IV push without improvement, started on Versed drip 5 mg per hour. Patient states on pressors with vasopressin and Levophed. Patient continues to be comatose. Occasional twitching of the right shoulder noticed. I had discussed case with Dr. Hagen yesterday after he reported abnormal prolonged EEG about transfer patient to [facility], but he mentioned that beds were not available. 08/23/2022: Patient was seen for a follow-up. Patient is intubated, not on any sedation. She is on full pressors with Levophed and vasopressin. Also on 3 antibiotics, anti-seizure medications including Keppra and Vimpat. Patient had sporadic seizure-like activity with facial twitching. No definite arm twitching noted. Episode lasted for about 30 minutes. At present there is no twitching noticeable. Patient's and grandchildren were present today. 08/22/2022: Patient was seen for a follow-up. Patient's daughter was also present today. Patient recently had temperature of 100.3. About an hour prior to spiking temperature, patient had some facial twitching, with jaw opening and closing, that lasted for half an hour. No upper extremity movement was noted at that time. Patient continues to be on Keppra 750 mg twice a day. Patient continues to be on high-dose pressors. Patient at present is no code, but full medical treatment. 08/21/2022: Patient initially seen by Dr. Edouard Peres. Please refer to his note for details. Patient is an 87-year-old female with altered mental status. Patient has septic encephalopathy. Patient had a seizure-like activity yesterday at 1:15 PM with head jerking and left arm jerking. Patient was given Ativan 4 mg, and the seizure-like stopped. Patient was given a loading dose of Keppra 1000 mg IV and then maintained on 500 mg twice a day. Patient had again seizure-like activity at 3 AM lasted for 45 minutes and then 5 AM and patient was given another loading dose of 500 mg Keppra. Nurse called me today at around 7:30 AM. It lasted for 20-30 minutes. Patient was again given Valium 4 mg in the seizure- like activity resolved. Patient was started on Vimpat 100 mg twice a day IV PB. EEG was performed today, which was abnormal sleep EEG due to background slowing of moderate degree. Some sharply contoured waves were seen in the left parietal region. No clear-cut epileptiform activity was seen. Objective - Vital Signs Vital signs: Vital Signs Temp 97.4 F L 09/06/22 12:00 Pulse 100 09/06/22 17:18 Resp 30 H 09/06/22 16:45 BP 128/47 09/02/22 15:00 Pulse Ox 100 09/06/22 16:45 FiO2 40 09/06/22 16:00 Intake & Output 09/05/22 09/06/22 09/06/22 18:59 06:59 18:59 Intake Total 9453.900 0176.342 1103.897 Output Total 4555 2875 2120 Balance -848.367 -298.658 -1016.103 Weight 130.4 kg 129.6 kg Intake: IV 1484 1296 245 0.9% @ KVO 195 165 150 Anidulafungin 100 mg In 100 Sodium Chloride 0.9% 100 ml @ 84 mls/hr IVPB DAILY [facility] Rx#:[id number] Ceftolozane/Tazobactam 0. 200 100 75 gm In Sodium Chloride 0.9% 100 ml @ 100 mls/hr IV Q8HR [facility] Rx#:[id number] Fat Emulsion 20% 250 ml 250 63 In Empty Bag 1 bag @ 21 mls/hr IV TuFr [facility] Rx#: [id number] Lacosamide IV 150 mg In 50 50 Sodium Chloride 0.9% 50 ml @ 100 mls/hr IVPB BID [facility] Rx#:[id number] Linezolid 600 mg In 300 150 Dextrose/Water 1 300ml. bag @ 150 mls/hr IVPB Q12H [facility] Rx#:[id number] Normal Saline: Pressure 39 33 30 Bag Phenytoin Sodium Inj 300 50 50 mg In Sodium Chloride 0.9 % 50 ml @ 80 mls/hr IVPB Q12H [facility] Rx#:[id number] Potassium Chloride 20 meq 200 In Water For Injection 1 100ml.bag @ 50 mls/hr IVPB Q2H [facility] Rx#: [id number] Sodium Acetate 50 meq 585 65 Potassium Chloride 45 meq Magnesium Sulfate gm 0. 75 gm Calcium Gluconate 3 gm Sodium Chloride 4Meq/ ml Vial 40 meq In Amino Acids 5 %/Dextrose 20 % 1 ,000 ml @ 65 mls/hr IV . BY DURATION [facility] Rx#: [id number] levETIRAcetam IV 1,000 mg 100 100 In Saline 1 100ml.bag @ 400 mls/hr IVPB Q12HR [facility] Rx#:[id number] Intake, IV Titration 153.793 1265.342 273.897 Amount Furosemide 100 mg In 88.5 100 93.167 Sodium Chloride 0.9% 90 ml @ 10 MG/HR 10 mls/hr IV .Q10H [facility] Rx#: [id number] Mvi, Adult No.4 with Vit 1055.167 K 10 ml Trace (Conc-1Ml/ Dose) 1 ml Sodium Acetate 50 meq Potassium Chloride 54 meq Magnesium Sulfate gm 0.75 gm Calcium Gluconate 3 gm Sodium Chloride 4Meq/ml Vial 60 meq In Amino Acids 5 %/Dextrose 20 % 1 ,000 ml @ 65 mls/hr IV . BY DURATION [facility] Rx#: [id number] Norepinephrine 32 mg In 56.133 65.175 73.528 Sodium Chloride 0.9% 218 ml @ 0.5 MCG/KG/MIN 25. 547 mls/hr IV .Q9H48M [facility] Rx#:[id number] Potassium Chloride 20 meq 100 In Water For Injection 1 100ml.bag @ 50 mls/hr IVPB Q2H [facility] Rx#: [id number] Vasopressin 60 unit In 153 107.202 Sodium Chloride 0.9% 150 ml @ 0.04 UNITS/MIN 6.12 mls/hr IV .Q24H [facility] Rx#: [id number] Tube Feeding 0 TPN/PPN 65 585 TPN 65 585 Other 0 Output: Gastric Drainage 200 250 Urine 2795 2065 1870 Stool 550 Other: Voiding Method Indwelling Catheter Indwelling Catheter Indwelling Catheter ABP, PAP, CO, CI - Last Documented Arterial Blood Pressure 128/54 - Exam Patient is an elderly female, who is comatose with GCS of 3. Patient is not on any sedation. Patient is off Ativan/Versed since 08/30/2022. Patient continues to be on pressors. Patient does not respond to painful stimuli or calling out loudly. No focal seizure noted involving right shoulder. Patient appears to have slightly more frequent twitches of her eyes and sometimes of the chin. It appears seizure phenomenon. Pupils are equal, round and reacting bilaterally. Oculocephalics are absent, corneals absent. Patient sometimes minimally opens her eyes with upgaze. Reflexes are absent. Patient has significant peripheral edema. Patient's fingers and toes are dusky, cyanotic, now turning black, right side worse than left. Abdomen is soft, appears distended. Patient not able to tolerate NGT feeds. She did have some bowel movement. - Labs CBC & Chem 7: 09/07/22 07:56 09/07/22 05:16 Labs: Abnormal Lab Results - Last 24 Hours (Table) 09/05/22 09/05/22 09/06/22 Range/Units 18:25 20:50 00:36 ABG pCO2 (35-45) mmHg ABG pO2 (83-108) mmHg ABG HCO3 (21-25) mmol/L ABG Total CO2 (19-24) mmol/L ABG O2 Saturation (94-97) % Sodium (137-145) mmol/L Potassium (3.5-5.1) mmol/L Chloride (98-107) mmol/L BUN (7-17) mg/dL Glucose (74-99) mg/dL POC Glucose (mg/dL) 220 H 193 H 160 H (70-110) mg/dL Calcium (8.4-10.2) mg/dL AST (14-36) U/L Alkaline Phosphatase (38-126) U/L Total Protein (6.3-8.2) g/dL Albumin (3.5-5.0) g/dL 09/06/22 09/06/22 09/06/22 Range/Units 04:20 05:54 06:22 ABG pCO2 47 H (35-45) mmHg ABG pO2 133 H (83-108) mmHg ABG HCO3 30 H (21-25) mmol/L ABG Total CO2 32 H (19-24) mmol/L ABG O2 Saturation 99.6 H (94-97) % Sodium 133 L (137-145) mmol/L Potassium 3.2 L (3.5-5.1) mmol/L Chloride 95 L (98-107) mmol/L BUN 92 H (7-17) mg/dL Glucose 140 H (74-99) mg/dL POC Glucose (mg/dL) 158 H (70-110) mg/dL Calcium 8.3 L (8.4-10.2) mg/dL AST 45 H (14-36) U/L Alkaline Phosphatase 196 H (38-126) U/L Total Protein 4.2 L (6.3-8.2) g/dL Albumin 1.9 L (3.5-5.0) g/dL 09/06/22 09/06/22 09/06/22 Range/Units 08:59 11:55 15:56 ABG pCO2 (35-45) mmHg ABG pO2 (83-108) mmHg ABG HCO3 (21-25) mmol/L ABG Total CO2 (19-24) mmol/L ABG O2 Saturation (94-97) % Sodium (137-145) mmol/L Potassium (3.5-5.1) mmol/L Chloride (98-107) mmol/L BUN (7-17) mg/dL Glucose (74-99) mg/dL POC Glucose (mg/dL) 138 H 153 H 151 H (70-110) mg/dL Calcium (8.4-10.2) mg/dL AST (14-36) U/L Alkaline Phosphatase (38-126) U/L Total Protein (6.3-8.2) g/dL Albumin (3.5-5.0) g/dL Assessment and Plan Assessment: * Electographic partial status epilepticus, severe, completely medically intractable, has been laying seizures since at least 08/20/2022 (clinically and unsure if patient was having subclinical seizure prior to that). On keppra, Vimpat and Dilantin. Also has tried IV versed and IV ativan, propofol without improvement. IV sedation has been off since 08/30/22. * Altered mental status multifactorial as mentioned below. Partial status, septic encephalopathy, electrolyte imbalance, renal failure, sepsis, and hepatic encephalopathy. * Probable perforated viscus with pneumoperitoneum. * Septicemia, with leukocytosis and blood culture persistently positive with e nterococcus faecium. Blood cultures positive as of 08/23/2022. White cells slightly worse today 21,000. * Hepatic encephalopathy with initial elevated ammonia 214, repeat 210, and yesterday is 171. * Septic shock requiring high-dose pressors and seems has urinary tract infec tion with urine culture positive for Enterococcus faecalis and Pseudomonas aeruginosa as well as systemic candidiasis Atrial fibrillation on eliquis (which has hx of afib) , currently on hold. Acute on chronic hypoxemic respiratory failure secondary to diastolic congestive heart failure requiring intubation mechanical ventilation Acute on chronic kidney disease History of TIAs/stroke History of coronary artery disease with stent Hypertension Hyperlipidemia Diabetes mellitus Anemia Hypocalcemia, resolved Plan: * Patient probably continues to have some seizure activity with eye twitching sporadically and chin twitch. Her previous EEGs continues to show subclinical partial status. Patient is off Versed and Ativan drip. She continues to be on 3 antiepileptic medications as mentioned below. Patient's daughter believes including her dad, that patient is showing some meaningful response, which I doubt. Family does not want any more EEGs at this time. They're c omfortable as long as patient is not exhibiting overt seizure activity. Patient has occasional twitch of the chin, or the eye, which could be possibly ictal phenomenon. * Patient already on high dose Vimpat 150 mg twice a day, Keppra 1000 mg twice a day (both of them adjusted for current renal functions) and Dilantin 300 mg twice a day. Dilantin level was checked 8.8 however her albumin is very low 1.8. Therefore adjusted Dilantin level is 14.8 which is completely therapeutic. Keppra level 68.9 (3-60). Cannot give Depakote because of hyperammonemia. * Continue Ativan 1-2 mg every 4 hours when necessary seizure. * Prolonged 2.5 hours EEG on 08/24/2022 was abnormal with evidence of runs of 1 Hz LPDs plus there was lateralized periodic discharges, sharp and slow and poly-sharp and slow waves over the left parietal region with spread more anteriorly. There are also some discharges semi-periodic LPDs over the right posterior quadrants. Exact cause remains uncertain. * Repeat CT head 09/03/2022 revealed cerebral atrophy. No acute intracranial abnormality. I personally reviewed CT head, and agreed no acute process. * ID is also on board. Patient currently on Eraxis, Zerbaxa, Zyvox. Per ID, patient is already covered well for meningitis. * Patient's initial Ammonia was 214. Most recent ammonia level 20 on 09/04/2022. Patient on lactulose. * CT abdomen revealed possibility of perforated viscus. Surgery on board. Patient was considered not a candidate for surgery because of hemodynamic instability. * Patient is still on pressors. Patient is showing blackening of the digits of her hands and feet. * Hypocalcemia, resolved. * We'll defer the rest of medical management to primary and ICU team * The patient condition is very critical. Prognosis appears very poor at this time for meaningful recovery. Recommendation would be terminal weaning and hospice care. Patient's daughter is aware of the prognosis. Patient's apparently wants to wait for a few more days before making any decision. Family does not want any repeat EEGs at this time. Informed patient's daughter that the eye or chin twitching could be seizure.
--- NOTE | 2022-09-07 09:33 | P.PN ---
Subjective Patient is seen in follow-up for acute kidney injury. Renal function improved. Nonoliguric. Currently on Levophed and vasopressin. On Lasix drip. Receiving TPN. Family present at bedside. No changes overnight. Potassium being replaced. Vital signs - on vasopressor support. General: Resting in bed. HEENT: Intubated. LUNGS: Breath sounds decreased. HEART: Tachycardic. ABDOMEN: Distention noted. EXTREMITITES: 2+ edema. Objective - Vital Signs Vital signs: Vital Signs Temp 97.0 F L 09/07/22 08:00 Pulse 109 H 09/07/22 09:00 Resp 30 H 09/07/22 09:00 BP 128/47 09/02/22 15:00 Pulse Ox 100 09/07/22 09:00 FiO2 40 09/07/22 09:00 Intake & Output 09/06/22 09/07/22 09/07/22 18:59 06:59 18:59 Intake Total 0458.377 6254 635.493 Output Total 2820 2555 575 Balance -1537.927 -959 60.493 Weight 129.6 kg Intake: IV 281 716 504 0.9% @ KVO 180 180 45 Anidulafungin 100 mg In 100 Sodium Chloride 0.9% 100 ml @ 84 mls/hr IVPB DAILY [facility] Rx#:[id number] Ceftolozane/Tazobactam 1. 100 5 gm In Sodium Chloride 0 .9% 100 ml @ 100 mls/hr IV Q8HR [facility] Rx#:[id number] Lacosamide IV 150 mg In 50 50 Sodium Chloride 0.9% 50 ml @ 100 mls/hr IVPB BID [facility] Rx#:[id number] Linezolid 600 mg In 300 Dextrose/Water 1 300ml. bag @ 150 mls/hr IVPB Q12H [facility] Rx#:[id number] Normal Saline: Pressure 36 36 9 Bag Phenytoin Sodium Inj 300 50 mg In Sodium Chloride 0.9 % 50 ml @ 80 mls/hr IVPB Q12H [facility] Rx#:[id number] Potassium Chloride 20 meq 100 In Water For Injection 1 100ml.bag @ 50 mls/hr IVPB Q2H [facility] Rx#: [id number] Sodium Acetate 50 meq 65 Potassium Chloride 45 meq Magnesium Sulfate gm 0. 75 gm Calcium Gluconate 3 gm Sodium Chloride 4Meq/ ml Vial 40 meq In Amino Acids 5 %/Dextrose 20 % 1 ,000 ml @ 65 mls/hr IV . BY DURATION [facility] Rx#: [id number] levETIRAcetam IV 1,000 mg 100 100 In Saline 1 100ml.bag @ 400 mls/hr IVPB Q12HR [facility] Rx#:[id number] Intake, IV Titration 286.073 100 66.493 Amount Furosemide 100 mg In 93.167 100 Sodium Chloride 0.9% 90 ml @ 10 MG/HR 10 mls/hr IV .Q10H [facility] Rx#: [id number] Norepinephrine 32 mg In 85.704 66.493 Sodium Chloride 0.9% 218 ml @ 0.5 MCG/KG/MIN 25. 547 mls/hr IV .Q9H48M [facility] Rx#:[id number] Vasopressin 60 unit In 107.202 Sodium Chloride 0.9% 150 ml @ 0.04 UNITS/MIN 6.12 mls/hr IV .Q24H [facility] Rx#: [id number] Tube Feeding 0 TPN/PPN 715 780 65 TPN 715 780 65 Other 0 Output: Gastric Drainage 250 Urine 2370 2555 575 Stool 200 Other: Voiding Method Indwelling Catheter Indwelling Catheter ABP, PAP, CO, CI - Last Documented Arterial Blood Pressure 135/54 - Labs CBC & Chem 7: 09/07/22 07:56 09/07/22 05:16 Labs: Abnormal Lab Results - Last 24 Hours (Table) 08/29/22 09/06/22 09/06/22 Range/Units 05:56 11:55 15:56 RBC (3.80-5.40) m/uL Hgb (11.4-16.0) gm/dL Hct (34.0-46.0) % RDW (11.5-15.5) % Plt Count (150-450) k/uL ABG HCO3 (21-25) mmol/L ABG Total CO2 (19-24) mmol/L ABG O2 Saturation (94-97) % Sodium (137-145) mmol/L Potassium (3.5-5.1) mmol/L Chloride (98-107) mmol/L Carbon Dioxide (22-30) mmol/L BUN (7-17) mg/dL Glucose (74-99) mg/dL POC Glucose (mg/dL) 153 H 151 H (70-110) mg/dL Calcium (8.4-10.2) mg/dL Phosphorus (2.5-4.5) mg/dL AST (14-36) U/L Alkaline Phosphatase (38-126) U/L Total Protein (6.3-8.2) g/dL Albumin (3.5-5.0) g/dL Crossmatch See Detail 09/06/22 09/06/22 09/07/22 Range/Units 19:49 23:38 04:11 RBC (3.80-5.40) m/uL Hgb (11.4-16.0) gm/dL Hct (34.0-46.0) % RDW (11.5-15.5) % Plt Count (150-450) k/uL ABG HCO3 (21-25) mmol/L ABG Total CO2 (19-24) mmol/L ABG O2 Saturation (94-97) % Sodium (137-145) mmol/L Potassium (3.5-5.1) mmol/L Chloride (98-107) mmol/L Carbon Dioxide (22-30) mmol/L BUN (7-17) mg/dL Glucose (74-99) mg/dL POC Glucose (mg/dL) 156 H 129 H 176 H (70-110) mg/dL Calcium (8.4-10.2) mg/dL Phosphorus (2.5-4.5) mg/dL AST (14-36) U/L Alkaline Phosphatase (38-126) U/L Total Protein (6.3-8.2) g/dL Albumin (3.5-5.0) g/dL Crossmatch 09/07/22 09/07/22 09/07/22 Range/Units 05:16 05:52 07:56 RBC 2.86 L (3.80-5.40) m/uL Hgb 8.0 L (11.4-16.0) gm/dL Hct 24.7 L (34.0-46.0) % RDW 22.4 H (11.5-15.5) % Plt Count 23 L D (150-450) k/uL ABG HCO3 31 H (21-25) mmol/L ABG Total CO2 33 H (19-24) mmol/L ABG O2 Saturation 97.5 H (94-97) % Sodium 134 L (137-145) mmol/L Potassium 2.6 L* (3.5-5.1) mmol/L Chloride 95 L (98-107) mmol/L Carbon Dioxide 31 H (22-30) mmol/L BUN 91 H (7-17) mg/dL Glucose 156 H (74-99) mg/dL POC Glucose (mg/dL) (70-110) mg/dL Calcium 8.3 L (8.4-10.2) mg/dL Phosphorus 2.4 L (2.5-4.5) mg/dL AST 45 H (14-36) U/L Alkaline Phosphatase 190 H (38-126) U/L Total Protein 4.2 L (6.3-8.2) g/dL Albumin 1.8 L (3.5-5.0) g/dL Crossmatch 09/07/22 Range/Units 07:57 RBC (3.80-5.40) m/uL Hgb (11.4-16.0) gm/dL Hct (34.0-46.0) % RDW (11.5-15.5) % Plt Count (150-450) k/uL ABG HCO3 (21-25) mmol/L ABG Total CO2 (19-24) mmol/L ABG O2 Saturation (94-97) % Sodium (137-145) mmol/L Potassium (3.5-5.1) mmol/L Chloride (98-107) mmol/L Carbon Dioxide (22-30) mmol/L BUN (7-17) mg/dL Glucose (74-99) mg/dL POC Glucose (mg/dL) 150 H (70-110) mg/dL Calcium (8.4-10.2) mg/dL Phosphorus (2.5-4.5) mg/dL AST (14-36) U/L Alkaline Phosphatase (38-126) U/L Total Protein (6.3-8.2) g/dL Albumin (3.5-5.0) g/dL Crossmatch Assessment and Plan Plan: Assessment: 1. Acute kidney injury secondary to ATN secondary to septic shock. Baseline creatinine near 0.8 from June 2022 - peaked at 2.77 this admission -0.92 today. Nonoliguric. No hydronephrosis noted on CAT scan. 2. Septic shock secondary to UTI, fungemia and bacteremia. CAT scan done in 08/20/2022 showed pneumoperitoneum. On antibiotics/antifungal and vasopressor support. 3. Metabolic acidosis secondary to acute kidney injury. s/p bicarb drip. 4. Hypokalemia from diuresis. Being replaced. 5. Acute hypoxic respiratory failure. 6. A. fib with RVR. On po amiodarone. Cardiology following. 8. Hyponatremia secondary to acute kidney injury. Hypervolemic. 9. Hypocalcemia secondary to acute kidney injury. Improved. 10. Severe volume overload. 11. Status post tracheostomy this admission. Plan: Maintain Lasix drip. Maintain TPN. Wean FiO2 and vasopressors. Avoid nephrotoxins. Continue to monitor renal function and urine output. Prognosis poor. Continue to assess daily for need for renal replacement therapy. Stopped vit D. Potassium being replaced. Add maintenance supplementation as well.
[2022-09-07] MEDS: 1: MVI, ADULT NO.4 WITH VIT K 10 ML, TRACE (CONC-1ML/DOSE) 1 ML, SODIUM ACETATE 50 MEQ, IV SCH ×8 (09:35)
[2022-09-07] MEDS: POTASSIUM CHLORIDE 20 MEQ in WATER FOR INJECTION 1 100ML.BAG IVPB SCH ×3 (10:28→14:32)
--- NOTE | 2022-09-07 11:25 | P.PN ---
Subjective Progress Note Date: 09/07/22 On today's evaluation of 09/04/2022, seeing the patient for a follow-up. The patient is a very complex case, an 87-year-old female patient remains in septic shock, unresponsive, on a mechanical ventilator, being followed up in the intensive care unit, still seeing several consultants regarding her complex situation. In summary, this patient has been on a mechanical ventilator for septic shock. During her course of her illness, the patient had various infections, as the patient's initial infection was related to Enterococcus faecalis and pseudomonas aeruginosa in her urine and subsequently the patient became septic and grew anaerobic gram-negative bacillus in the blood and this was thought to be related to an ischemic bowel and following that, the patient developed sputum positive for Ange and the blood culture was also positive for Ange albicans on 08/11/2022. Subsequent sputum from 08/19/2022 was positive for MRSA, blood culture was positive for VRE on 08/19/2022 and repeated blood culture from 08/23/2022 was again positive for VRE. The patient is currently on a combination of Zerbaxa , eraxis and Zyvox. This morning, the patient is not receiving any sedation. As mentioned, she is completely unresponsive. she was seen by neurology on multiple occasions. The patient's m ost recent CAT scan of the brain that was done on 09/03/2022 showed evidence of cerebral atrophy without any acute changes. EEG that was done on 09/01/2022 showed evidence of burst suppression discharges suggestive of nonconvulsive status Versus anoxia the brain. There is also background slowing suggestive of severe encephalopathy. The patient does not respond to any verbal. She does not identify any painful stimulation. She has been off sedation for quite some time and I do not to follow this patient back into 2022. She remains on a mechanical ventilator. Noted the patient had received a tracheostomy and currently is on assist-control mode of mechanical ventilation. She is currently on a rate of 30 with a tidal volume of 400 and FiO2 of 40% with a PEEP of 10. Chest x-ray showing dense consolidation of the lung bases bilaterally. Blood gas from today shows a pH of 7.39, pCO2 of 46, pO2 133. Hemodynamically, she is on pressors and the patient is on vasopressin physiologic data that 0.04 units and the patient is also on norepinephrine running at 0.14 mcg/kg/m. She remains on a running at 10 mg an hour. Overall fluid balance is -2.6 L over the past 24 hours and the patient is responding nicely to the diuretics. Note that the most recent blood culture that was done on 08/29/2022 showed no evidence of any microbial growth. There is evidence currently of 14.6 with a hemoglobin of 8.4 and a platelet count of 104. BUN is at 19 with a creatinine of 1.2 and a sodium level is at 129. AST is 46, ALT is 27, alkaline phosphatase 187. Blood sugars at 1:30 from this morning. She still has a triple-lumen catheter in her left subclavian vein. She also has not. Right femoral. Patient is on Levemir insulin 15 units at bedtime in addition to NovoLog based on a sliding scale coverage. Antibiotics will mentioned above. TPN is running at the rate of 65 mL an hour. She is on amiodarone 400 mg by mouth twice a day and her current cardiac rhythm is controlled atrial fibrillation. She is on no anticoagulants for now. In terms of bowel movement activity, the patient is producing large amounts of stool and she has a fecal management system in Place. The patient remains on laxatives. The patient is a combination of MiraLAX and lactulose. Most recent ammonia level is at 20. On today's evaluation of 09/05/2022, I'm seeing the patient for a follow-up. Clinically unchanged. Off sedation. Unresponsive. Still on the mechanical ventilator and the patient has been switched to no colds. Nevertheless, the wanted to continue ongoing treatment with the understanding that the patient carries a very poor prognosis because of septic shock and multisystem organ failure. For now, the patient is on no sedation. The patient is unresponsive. The patient is not following any commands. The patient has been off sedation since 08/30/2022. The patient remains on mechanical ventilator and she is essentially on the same ventilator setting. She is currently on assist- control mode of mechanical ventilation with a rate of 30, tidal volume of 400, FiO2 of 40% and a PEEP of 10. The blood gas from today showed a pH of 7.4 with a pCO2 of 47 and pO2 of 110. Chest x-ray from today is not done. The last chest x-ray was from 09/03/2022. We'll repeat another chest x-ray tomorrow. The last chest x-ray showed tracheostomy and NG tube being in good location. The patient continues to have bilateral airspace disease. Hemodynamically, the patient's current cardiac rhythm is controlled a chest fibrillation. The patient is on pressors. The patient is on a norepinephrine at a rate of 0.13 mcg/kg/m. The patient remains on Lasix drip at 10 mg an hour. The patient is also on vasopressin physiologic dose of 0.04 units an hour. The patient is also receiving TPN for nutritional support. TPN is running at 65 mL an hour. Overall fluid balance over the past 24 hours has been in the order of -5.2 L as the patient is being aggressively diuresed. Meanwhile, a trial of enteral feeding was given to this patient in the patient failed to tolerate enteral feeding. She has a fecal management system in Place and she is still having liquidy loose stools. The abdomen is nondistended. The response of 10.6 with a hemoglobin of 8.2 and a platelet count of 66 which is a drop compared to yesterday. In same time, the patient has a sodium of 131, potassium of 3.2, and a potassium level has been placed, BUN is at 88 with a creatinine of 1.0 and is using a 27. Patient has a AST of 50, ALT of 28, alkaline phosphatase of 206, and albumin is at 1.8 with a total protein of 4.3. Glucose at 126. No new cultures are not available the most recent culture of the blood was from 08/29/2002 and this was negative. On 09/06/2022, clinically unchanged and the patient remains unresponsive. She grimaces only to deep painful stimulation. Otherwise, she does not open up her eyes spontaneously. She does not follow any commands. She has been off sedation for more than a week. She remains in septic shock with multisystem organ failure. For now, the patient's is on a mechanical ventilator through tracheostomy tube. The patient remains on assist-control mode of mechanical ventilation at the rate of 30 with a tidal volume of 400 and FiO2 of 40% and a P EEP is currently at 6. Meanwhile, the blood gas from today showed a pH of 7.42 with a pCO2 of 47 and a pO2 of 133. The patient is not having any significant orotracheal secretions. The chest x-ray that was done yesterday on 09/05/2022 showed adequate positioning of the tracheostomy tube. NG tube is also in good location. The patient has persistent bilateral pulmonary infiltration and pleural effusions. The chest x-ray findings of essentially unchanged. There may be just some air within the abdomen is on the x-ray findings and we noted the patient had pneumoperitoneum earlier. In terms of feeding, the patient was unable to tolerate enteral feeding. She was having high NG output. Bowel sounds are still sluggish. Based on that, the patient was kept on TPN for nutritional support which is running at the rate of 65 mL an hour. She remains on IV fluids at KVO. She is on norepinephrine which is running at 0.11 mcg/kg/m. Urine output is adequate. Overall fluid balance is -1.1 L over the past 24 hours as the patient is being also diuresed with IV Lasix and the patient is receiving Lasix drip at 10 mg an hour. There is improvement in the third spacing and edema in the upper and lower oximetry is bilaterally. Nevertheless, the patient continues to have digital necrosis in her toes and her fingers. Fecal management system still in place. The patient remains on the same antibiotic coverage for now. The patient's blood work from today shows a sodium of 133, potassium of 3.2, chloride of 95 with a bicarb of 29. LFTs are unchanged. The patient's WBC count from yesterday was at 10.6 with a hemoglobin of 8.2. Most recent blood culture from 08/29/2022 was negative. 09/07/2022, the patient remains off sedation. Unresponsive still. Past- pointing is eye-opening. She opens her mouth. Does not smoke. Does not follow any commands. At times, there is some postnasal eye-opening. No seizure activity has been noted. The patient remains on a combination of antiepileptic medications and the patient is currently on a combination of Dilantin, Keppra and Vimpat. Neurology still on the case. The patient did have some partial seizures on earlier EKGs and subsequent her seizures were controlled. Meanwhile, she remains on mechanical ventilator. As mentioned earlier, the patient is tracheostomy tube in place. The patient is on assist-control mode of mechanical ventilation at the rate of 30 with a tidal volume of 400 and FiO2 of 40% with a PEEP of 6. The blood gas from today shows a pH of 7.45 with a pCO2 45 and pO2 of 88. No significant orotracheal secretions. Hemodynamically, there is further improvement in fluid balance as the patient remains on Lasix drip at 10 mg an hour. The overall fluid balance has been negative in the order of 2.4 L. The patient is still on pressors were norepinephrine and the pressors have been weaned down to 0.0 aches micrograms per kilogram per minute. The patient remains on physiologic dose of vasopressin. IV fluids are currently at KVO. She remains in atrial fibrillation. Her BUN is at 91 with a creatinine of 0.9. Bicarb is at 31. Sodium is at 136 with a potassium level of 2.6 and this dates to be replaced. TPN is running at the rate of 65 mL an hour. No fever and the patient had another set of blood cultures sent yesterday. Otherwise, no other significant events. Family is being updated on her condition on daily basis. is not ready to let go. Objective - Vital Signs Vital signs: Vital Signs Temp 97.9 F 09/06/22 20:00 Pulse 105 H 09/07/22 07:00 Resp 30 H 09/07/22 07:00 BP 128/47 09/02/22 15:00 Pulse Ox 96 09/07/22 05:00 FiO2 40 09/07/22 08:16 Intake & Output 09/06/22 09/07/22 09/07/22 18:59 06:59 18:59 Intake Total 6806.693 3415 145.014 Output Total 2820 2555 125 Balance -1537.927 -959 20.014 Weight 129.6 kg Intake: IV 281 716 18 0.9% @ KVO 180 180 15 Lacosamide IV 150 mg In 50 Sodium Chloride 0.9% 50 ml @ 100 mls/hr IVPB BID [facility] Rx#:[id number] Linezolid 600 mg In 300 Dextrose/Water 1 300ml. bag @ 150 mls/hr IVPB Q12H [facility] Rx#:[id number] Normal Saline: Pressure 36 36 3 Bag Phenytoin Sodium Inj 300 50 mg In Sodium Chloride 0.9 % 50 ml @ 80 mls/hr IVPB Q12H [facility] Rx#:[id number] Sodium Acetate 50 meq 65 Potassium Chloride 45 meq Magnesium Sulfate gm 0. 75 gm Calcium Gluconate 3 gm Sodium Chloride 4Meq/ ml Vial 40 meq In Amino Acids 5 %/Dextrose 20 % 1 ,000 ml @ 65 mls/hr IV . BY DURATION [facility] Rx#: [id number] levETIRAcetam IV 1,000 mg 100 In Saline 1 100ml.bag @ 400 mls/hr IVPB Q12HR [facility] Rx#:[id number] Intake, IV Titration 286.073 100 62.014 Amount Furosemide 100 mg In 93.167 100 Sodium Chloride 0.9% 90 ml @ 10 MG/HR 10 mls/hr IV .Q10H [facility] Rx#: [id number] Norepinephrine 32 mg In 85.704 62.014 Sodium Chloride 0.9% 218 ml @ 0.5 MCG/KG/MIN 25. 547 mls/hr IV .Q9H48M [facility] Rx#:[id number] Vasopressin 60 unit In 107.202 Sodium Chloride 0.9% 150 ml @ 0.04 UNITS/MIN 6.12 mls/hr IV .Q24H [facility] Rx#: [id number] TPN/PPN 715 780 65 TPN 715 780 65 Output: Gastric Drainage 250 Urine 2370 2555 125 Stool 200 Other: Voiding Method Indwelling Catheter Indwelling Catheter ABP, PAP, CO, CI - Last Documented Arterial Blood Pressure 126/52 - Exam GENERAL EXAM: Intubated, sedated, 87-year-old morbidly obese female HEAD: Normocephalic. EYES: Sluggish reaction of pupils, equal size. NOSE: Nasogastric tube secured in place. Clear with pink turbinates. THROAT: Oral endotracheal tube in place. NECK: No masses, no JVD. CHEST: No chest wall deformity. LUNGS: Equal air entry with crackles in the bilateral bases. CVS: S1 and S2 normal with no audible murmur, irregular rhythm. ABDOMEN: No hepatosplenomegaly, normal bowel sounds, no guarding or rigidity. SPINE: No scoliosis or deformity SKIN: No rashes CENTRAL NERVOUS SYSTEM: Sedated, tone is normal in all 4 extremities. EXTREMITIES: There is 1-2+ peripheral edema. Changes of chronic venous stasis. No clubbing, no cyanosis. Peripheral pulses are intact. - Labs CBC & Chem 7: 09/07/22 07:56 09/07/22 05:16 Labs: Abnormal Lab Results - Last 24 Hours (Table) 09/06/22 09/06/22 09/06/22 Range/Units 08:59 11:55 15:56 ABG HCO3 (21-25) mmol/L ABG Total CO2 (19-24) mmol/L ABG O2 Saturation (94-97) % Sodium (137-145) mmol/L Potassium (3.5-5.1) mmol/L Chloride (98-107) mmol/L Carbon Dioxide (22-30) mmol/L BUN (7-17) mg/dL Glucose (74-99) mg/dL POC Glucose (mg/dL) 138 H 153 H 151 H (70-110) mg/dL Calcium (8.4-10.2) mg/dL Phosphorus (2.5-4.5) mg/dL AST (14-36) U/L Alkaline Phosphatase (38-126) U/L Total Protein (6.3-8.2) g/dL Albumin (3.5-5.0) g/dL 09/06/22 09/06/22 09/07/22 Range/Units 19:49 23:38 04:11 ABG HCO3 (21-25) mmol/L ABG Total CO2 (19-24) mmol/L ABG O2 Saturation (94-97) % Sodium (137-145) mmol/L Potassium (3.5-5.1) mmol/L Chloride (98-107) mmol/L Carbon Dioxide (22-30) mmol/L BUN (7-17) mg/dL Glucose (74-99) mg/dL POC Glucose (mg/dL) 156 H 129 H 176 H (70-110) mg/dL Calcium (8.4-10.2) mg/dL Phosphorus (2.5-4.5) mg/dL AST (14-36) U/L Alkaline Phosphatase (38-126) U/L Total Protein (6.3-8.2) g/dL Albumin (3.5-5.0) g/dL 09/07/22 09/07/22 09/07/22 Range/Units 05:16 05:52 07:57 ABG HCO3 31 H (21-25) mmol/L ABG Total CO2 33 H (19-24) mmol/L ABG O2 Saturation 97.5 H (94-97) % Sodium 134 L (137-145) mmol/L Potassium 2.6 L* (3.5-5.1) mmol/L Chloride 95 L (98-107) mmol/L Carbon Dioxide 31 H (22-30) mmol/L BUN 91 H (7-17) mg/dL Glucose 156 H (74-99) mg/dL POC Glucose (mg/dL) 150 H (70-110) mg/dL Calcium 8.3 L (8.4-10.2) mg/dL Phosphorus 2.4 L (2.5-4.5) mg/dL AST 45 H (14-36) U/L Alkaline Phosphatase 190 H (38-126) U/L Total Protein 4.2 L (6.3-8.2) g/dL Albumin 1.8 L (3.5-5.0) g/dL Assessment and Plan Plan: Acute on chronic hypoxemic respiratory failure, status post intubation on August 10, and tracheostomy on August 25. Chest x-ray continues to show consolidation of the lung bases and pleural effusions bilaterally. Oxygen is stable and the patient remains on a mechanical ventilator assist control mode and the patient has a tracheostomy tube in place. No change in oxygenation and the patient's overall respiratory status is stable Bilateral lower lobe pneumonia with persistent consolidation lung bases. Most recent sputum indicating MRSA and Ange from 08/19/2022 Septic shock of multiple sources. The patient had initially Enterococcus faecalis and Pseudomonas in her urine on 08/08/2022. The patient also had anaerobic gram-negative bacillus in her blood probably of an end of the abdominal source. Subsequently, the patient had systemic candidemia on 08/19/2022 and VRE in her blood on 08/23/2022. She remains on pressors. Note that review blood cultures were sent. The patient remains on a physiologic dose of vasopressin and norepinephrine at 0.06 mcg/kg/m. As such, the patient's oxygen requirements have improved. Unresponsive, CAT scan of the brain is negative, EEG showing severe encephalopathy, most recent CAT scan of the brain was done on 09/03/2022 and it showed cerebral atrophy without any acute abnormalities. The patient remains severely encephalopathic. The patient had partial seizures confirmed by EEG and the patient is on a combination of antiepileptic medication including Vimpat, Dilantin and Keppra. Neurology is still on the case. TPN nutritional support, failed EN Acute on chronic diastolic CHF. Abdominal sepsis/septic shock. Anion gap metabolic acidosis. Urinary tract infection secondary to Enterococcus faecalis and pseudomonas aeruginosa. Bacteremia secondary to vancomycin-resistant enterococci (VRE) Systemic candidiasis. The patient systemic candidemia confirmed by positive blood culture. Repeat blood culture was negative and the patient is current on Eraxis. Atrial fibrillation with RVR, rate controled for now Acute on chronic kidney disease. The creatinine is stable and the patient is currently on Lasix drip running at 10 mg an hour Recent history of coronavirus infection. History of aortic stenosis. Acute on chronic anemia. History of COPD. History of diastolic congestive heart failure. Morbid obesity. Diarrhea with fecal management system in Place Necrotic digits of the upper and lower extremities and the patient has gangrenous toes and fingers probably related to chronic sepsis, hypotension, and use of pressors Pressure ulcer on her coccyx Plan: Continue ventilator support, dropped a PEEP down to 5 Repeat blood cultures, results are pending Continue same antibiotic coverage Keep the fecal management system in place Continue TPN for nutritional support Attempted to see the patient again with vital AF at a lower rate Continue Lasix drip at 10 mg an hour for another 24 hours as the patient's has diabetes adequately and there is improvement in volume status Replace potassium no sadation Continue midodrine 10 mg tid Avoid sedatives for now, the patient has been off sedation for more than a week. No reasonable neurological recovery. Most recent CAT scan of the brain was done on 09/03/2022 showing no acute changes Wound care Extremely poor prognosis. This has been discussed with the family on multiple occasions. Condition is critical and prognosis poor. We'll continue to follow. This evaluation was a on more than 30 minutes. is not ready to Go and is not considering comfort care measures yet. Her chance of recovery is extremely low for and this has been explained to the daughter and the on multiple occasions. Time with Patient: Greater than 30
[2022-09-07] MEDS: FUROSEMIDE 100 MG in SODIUM CHLORIDE 0.9% 90 ML IV SCH ×2 (11:49→21:33)
[2022-09-07] MEDS: VASOPRESSIN 60 UNIT in SODIUM CHLORIDE 0.9% 150 ML IV SCH (11:51)
[2022-09-07 12:07] LABS: Glucose,Whole Blood 142 mg/dL (70-110)
--- NOTE | 2022-09-07 13:26 | P.PN ---
Subjective Progress Note Date: 09/07/22 Principal diagnosis: Sepsis/septic shock Patient is a 87-year-old female with multiple comorbidities presented to the hospital with a syncopal episode weakness subsequently hypotension, sepsis requiring transfer to the ICU and intubation on the vent. She patient did have a CT of abdominal pelvis completed on 08/20/2022 with evidence of pneumoperitoneum Gen. surgery discussed with the family currently being treated medically On today's evaluation that is 09/07/2022, the patient continues to be afebrile, the patient is requiring slightly less pressor support to maintain her blood pressure, the patient FiO2 is stable at 40 %, no purulent secretions through the ET , patient did have NG to suction,, patient did have a fecal management system for her diarrhea however no significant output has been reported, patient did have more swelling to lower extremity and blister formation Objective - Vital Signs Vital signs: Vital Signs Temp 97.0 F L 09/07/22 08:00 Pulse 103 H 09/07/22 10:00 Resp 30 H 09/07/22 10:00 BP 128/47 09/02/22 15:00 Pulse Ox 100 09/07/22 10:00 FiO2 40 09/07/22 10:00 Intake & Output 09/06/22 09/07/22 09/07/22 18:59 06:59 18:59 Intake Total 3000.949 0411 665.920 Output Total 2820 2555 715 Balance -1537.927 -959 -49.080 Weight 129.6 kg Intake: IV 281 716 522 0.9% @ KVO 180 180 60 Anidulafungin 100 mg In 100 Sodium Chloride 0.9% 100 ml @ 84 mls/hr IVPB DAILY [facility] Rx#:[id number] Ceftolozane/Tazobactam 1. 100 5 gm In Sodium Chloride 0 .9% 100 ml @ 100 mls/hr IV Q8HR [facility] Rx#:[id number] Lacosamide IV 150 mg In 50 50 Sodium Chloride 0.9% 50 ml @ 100 mls/hr IVPB BID [facility] Rx#:[id number] Linezolid 600 mg In 300 Dextrose/Water 1 300ml. bag @ 150 mls/hr IVPB Q12H [facility] Rx#:[id number] Normal Saline: Pressure 36 36 12 Bag Phenytoin Sodium Inj 300 50 mg In Sodium Chloride 0.9 % 50 ml @ 80 mls/hr IVPB Q12H [facility] Rx#:[id number] Potassium Chloride 20 meq 100 In Water For Injection 1 100ml.bag @ 50 mls/hr IVPB Q2H [facility] Rx#: [id number] Sodium Acetate 50 meq 65 Potassium Chloride 45 meq Magnesium Sulfate gm 0. 75 gm Calcium Gluconate 3 gm Sodium Chloride 4Meq/ ml Vial 40 meq In Amino Acids 5 %/Dextrose 20 % 1 ,000 ml @ 65 mls/hr IV . BY DURATION [facility] Rx#: [id number] levETIRAcetam IV 1,000 mg 100 100 In Saline 1 100ml.bag @ 400 mls/hr IVPB Q12HR [facility] Rx#:[id number] Intake, IV Titration 286.073 100 68.920 Amount Furosemide 100 mg In 93.167 100 Sodium Chloride 0.9% 90 ml @ 10 MG/HR 10 mls/hr IV .Q10H [facility] Rx#: [id number] Norepinephrine 32 mg In 85.704 68.920 Sodium Chloride 0.9% 218 ml @ 0.5 MCG/KG/MIN 25. 547 mls/hr IV .Q9H48M [facility] Rx#:[id number] Vasopressin 60 unit In 107.202 Sodium Chloride 0.9% 150 ml @ 0.04 UNITS/MIN 6.12 mls/hr IV .Q24H [facility] Rx#: [id number] Tube Feeding 10 TPN/PPN 715 780 65 TPN 715 780 65 Other 0 Output: Gastric Drainage 250 Urine 2370 2555 715 Stool 200 Other: Voiding Method Indwelling Catheter Indwelling Catheter Indwelling Catheter ABP, PAP, CO, CI - Last Documented Arterial Blood Pressure 89/40 - Exam GENERAL DESCRIPTION: An elderly female intubated on the vent RESPIRATORY SYSTEM: Unlabored breathing , decreased breath sounds at bases HEART: S1 S2 regular rate and rhythm , ABDOMEN: Soft , abdominal distention EXTREMITIES: Diffuse swelling bilateral lower extremity no redness - Labs CBC & Chem 7: 09/07/22 07:56 09/07/22 05:16 Labs: Abnormal Lab Results - Last 24 Hours (Table) 08/29/22 09/06/22 09/06/22 Range/Units 05:56 11:55 15:56 RBC (3.80-5.40) m/uL Hgb (11.4-16.0) gm/dL Hct (34.0-46.0) % RDW (11.5-15.5) % Plt Count (150-450) k/uL ABG HCO3 (21-25) mmol/L ABG Total CO2 (19-24) mmol/L ABG O2 Saturation (94-97) % Sodium (137-145) mmol/L Potassium (3.5-5.1) mmol/L Chloride (98-107) mmol/L Carbon Dioxide (22-30) mmol/L BUN (7-17) mg/dL Glucose (74-99) mg/dL POC Glucose (mg/dL) 153 H 151 H (70-110) mg/dL Calcium (8.4-10.2) mg/dL Phosphorus (2.5-4.5) mg/dL AST (14-36) U/L Alkaline Phosphatase (38-126) U/L Total Protein (6.3-8.2) g/dL Albumin (3.5-5.0) g/dL Crossmatch See Detail 09/06/22 09/06/22 09/07/22 Range/Units 19:49 23:38 04:11 RBC (3.80-5.40) m/uL Hgb (11.4-16.0) gm/dL Hct (34.0-46.0) % RDW (11.5-15.5) % Plt Count (150-450) k/uL ABG HCO3 (21-25) mmol/L ABG Total CO2 (19-24) mmol/L ABG O2 Saturation (94-97) % Sodium (137-145) mmol/L Potassium (3.5-5.1) mmol/L Chloride (98-107) mmol/L Carbon Dioxide (22-30) mmol/L BUN (7-17) mg/dL Glucose (74-99) mg/dL POC Glucose (mg/dL) 156 H 129 H 176 H (70-110) mg/dL Calcium (8.4-10.2) mg/dL Phosphorus (2.5-4.5) mg/dL AST (14-36) U/L Alkaline Phosphatase (38-126) U/L Total Protein (6.3-8.2) g/dL Albumin (3.5-5.0) g/dL Crossmatch 09/07/22 09/07/22 09/07/22 Range/Units 05:16 05:52 07:56 RBC 2.86 L (3.80-5.40) m/uL Hgb 8.0 L (11.4-16.0) gm/dL Hct 24.7 L (34.0-46.0) % RDW 22.4 H (11.5-15.5) % Plt Count 23 L D (150-450) k/uL ABG HCO3 31 H (21-25) mmol/L ABG Total CO2 33 H (19-24) mmol/L ABG O2 Saturation 97.5 H (94-97) % Sodium 134 L (137-145) mmol/L Potassium 2.6 L* (3.5-5.1) mmol/L Chloride 95 L (98-107) mmol/L Carbon Dioxide 31 H (22-30) mmol/L BUN 91 H (7-17) mg/dL Glucose 156 H (74-99) mg/dL POC Glucose (mg/dL) (70-110) mg/dL Calcium 8.3 L (8.4-10.2) mg/dL Phosphorus 2.4 L (2.5-4.5) mg/dL AST 45 H (14-36) U/L Alkaline Phosphatase 190 H (38-126) U/L Total Protein 4.2 L (6.3-8.2) g/dL Albumin 1.8 L (3.5-5.0) g/dL Crossmatch 09/07/22 Range/Units 07:57 RBC (3.80-5.40) m/uL Hgb (11.4-16.0) gm/dL Hct (34.0-46.0) % RDW (11.5-15.5) % Plt Count (150-450) k/uL ABG HCO3 (21-25) mmol/L ABG Total CO2 (19-24) mmol/L ABG O2 Saturation (94-97) % Sodium (137-145) mmol/L Potassium (3.5-5.1) mmol/L Chloride (98-107) mmol/L Carbon Dioxide (22-30) mmol/L BUN (7-17) mg/dL Glucose (74-99) mg/dL POC Glucose (mg/dL) 150 H (70-110) mg/dL Calcium (8.4-10.2) mg/dL Phosphorus (2.5-4.5) mg/dL AST (14-36) U/L Alkaline Phosphatase (38-126) U/L Total Protein (6.3-8.2) g/dL Albumin (3.5-5.0) g/dL Crossmatch Assessment and Plan (1) Sepsis Current Visit: Yes Status: Acute Code(s): A41.9 - SEPSIS, UNSPECIFIED ORGANISM SNOMED Code(s): 92468390 Plan: 1patient was in the hospital with sepsis and septic shock initially concern for multidrug-resistant Pseudomonas UTI, patient also have a candidemia secondary to possible abdominal source and now with a VRE bacteremia source likely abdominal 2patient did have evidence of colonic perforation and peritonitis being managed medically as the patient considered to be high risk for any surgical procedure 3patient did have persistent VRE bacteremia and could be related to the multiple lines , patient will benefit from removal of those lines to control her bacteremia, patient did have a repeat blood cultures on 08/29/2022 those are negative so far 4-the patient clinical condition remains to be guarded however the patient did have resolution of her fever and repeat blood culture has been negative , and the patient white count has normalized 5- patient to continue with Zyvox Zerbex and Eraxis and monitor clinical course closely , daughter at the bedside multiple questions concerns were answered Time with Patient: Less than 30
--- NOTE | 2022-09-07 13:43 | P.PN ---
Subjective Progress Note Date: 09/07/22 Principal diagnosis: Sepsis, acute kidney injury, heart failure, on ventilator at 40% FiO2, on vasopressin and Levophed doses of both meds have been reduced, blood pressure is improved urinary output has improved, need TPN Noted the patient trached patient started on phenytoin secondary to possible seizure activities noted on EEG, life care discussed at length with patient's val west and is currently no CPR otherwise they want to continue current care however there has been explained that there is been no or little improvement in her status Patient presented to the hospital on 08/08/2022 secondary to shortness of breath hypotension patient had syncopal episode on the toilet, was recently discharged from rehab facility, brought in by EMS, was admitted to the stepdown unit, and subsequently transferred to the intensive care unit where she was placed on BiPAP secondary to severe acidosis and was intubated and placed on pressors , despite multiple boluses of normal saline despite receiving IV Lasix. This patient has a long-standing history of diabetes hypertension 09/07/2022 patient currently intubated and sedated, etiology for current state includes se psis fungemia urinary sepsis urine cultures growing Pseudomonas and enterococcus and acute tubular necrosis the kidneys marisel, and left lower lobe pneumonia Patient is currently maintained on pressors including Levophed and vasopressin being reduced, trached, no recent change in status Objective - Vital Signs Vital signs: Vital Signs Temp 97.2 F L 09/07/22 12:00 Pulse 102 H 09/07/22 12:03 Resp 30 H 09/07/22 12:00 BP 128/47 09/02/22 15:00 Pulse Ox 100 09/07/22 12:00 FiO2 40 09/07/22 12:00 Intake & Output 09/06/22 09/07/22 09/07/22 18:59 06:59 18:59 Intake Total 1072.504 5813 1196.658 Output Total 2820 2555 995 Balance -1537.927 -959 201.658 Weight 129.6 kg Intake: IV 281 716 758 0.9% @ KVO 180 180 90 Anidulafungin 100 mg In 100 Sodium Chloride 0.9% 100 ml @ 84 mls/hr IVPB DAILY [facility] Rx#:[id number] Ceftolozane/Tazobactam 1. 100 5 gm In Sodium Chloride 0 .9% 100 ml @ 100 mls/hr IV Q8HR [facility] Rx#:[id number] Lacosamide IV 150 mg In 50 50 Sodium Chloride 0.9% 50 ml @ 100 mls/hr IVPB BID [facility] Rx#:[id number] Linezolid 600 mg In 300 Dextrose/Water 1 300ml. bag @ 150 mls/hr IVPB Q12H [facility] Rx#:[id number] Normal Saline: Pressure 36 36 18 Bag Phenytoin Sodium Inj 300 50 mg In Sodium Chloride 0.9 % 50 ml @ 80 mls/hr IVPB Q12H [facility] Rx#:[id number] Potassium Chloride 20 meq 300 In Water For Injection 1 100ml.bag @ 50 mls/hr IVPB Q2H [facility] Rx#: [id number] Sodium Acetate 50 meq 65 Potassium Chloride 45 meq Magnesium Sulfate gm 0. 75 gm Calcium Gluconate 3 gm Sodium Chloride 4Meq/ ml Vial 40 meq In Amino Acids 5 %/Dextrose 20 % 1 ,000 ml @ 65 mls/hr IV . BY DURATION [facility] Rx#: [id number] levETIRAcetam IV 1,000 mg 100 100 In Saline 1 100ml.bag @ 400 mls/hr IVPB Q12HR [facility] Rx#:[id number] Intake, IV Titration 286.073 100 313.658 Amount Furosemide 100 mg In 93.167 100 100 Sodium Chloride 0.9% 90 ml @ 10 MG/HR 10 mls/hr IV .Q10H [facility] Rx#: [id number] Norepinephrine 32 mg In 85.704 68.920 Sodium Chloride 0.9% 218 ml @ 0.5 MCG/KG/MIN 25. 547 mls/hr IV .Q9H48M [facility] Rx#:[id number] Vasopressin 60 unit In 107.202 144.738 Sodium Chloride 0.9% 150 ml @ 0.04 UNITS/MIN 6.12 mls/hr IV .Q24H [facility] Rx#: [id number] Tube Feeding 30 TPN/PPN 715 780 65 TPN 715 780 65 Other 30 Output: Gastric Drainage 250 Urine 2370 2555 995 Stool 200 Other: Voiding Method Indwelling Catheter Indwelling Catheter Indwelling Catheter ABP, PAP, CO, CI - Last Documented Arterial Blood Pressure 101/49 - Exam General: Patient is intubated on a vent Morbidly obese HEENT: Normocephalic atraumatic, senescent pattern baldness Neck: [No adenopathy.] Cardiac: [Heart regularly irregular. No S3. No S4. No clicks, rubs. Lungs: Diminished breath sounds bilaterally scattered rhonchi noted Abdomen: [No mass. No organomegaly. Bowel sounds presnt and normoactive in all 4 quadrants. This patient is morbidly obese Extremes: [4+ edema bilateral fingertips and toe tips are infarcting secondary to prolonged use of pressors : Normal female genitalia Skin: Multiple sites of ecchymosis on bilateral arms Neurologic: Patient is sedated on a ventilatory support Lymphatic: [No adenopathy.] - Labs CBC & Chem 7: 09/07/22 07:56 09/07/22 05:16 Labs: Abnormal Lab Results - Last 24 Hours (Table) 08/29/22 09/06/22 09/06/22 Range/Units 05:56 15:56 19:49 RBC (3.80-5.40) m/uL Hgb (11.4-16.0) gm/dL Hct (34.0-46.0) % RDW (11.5-15.5) % Plt Count (150-450) k/uL ABG HCO3 (21-25) mmol/L ABG Total CO2 (19-24) mmol/L ABG O2 Saturation (94-97) % Sodium (137-145) mmol/L Potassium (3.5-5.1) mmol/L Chloride (98-107) mmol/L Carbon Dioxide (22-30) mmol/L BUN (7-17) mg/dL Glucose (74-99) mg/dL POC Glucose (mg/dL) 151 H 156 H (70-110) mg/dL Calcium (8.4-10.2) mg/dL Phosphorus (2.5-4.5) mg/dL AST (14-36) U/L Alkaline Phosphatase (38-126) U/L Total Protein (6.3-8.2) g/dL Albumin (3.5-5.0) g/dL Crossmatch See Detail 09/06/22 09/07/22 09/07/22 Range/Units 23:38 04:11 05:16 RBC (3.80-5.40) m/uL Hgb (11.4-16.0) gm/dL Hct (34.0-46.0) % RDW (11.5-15.5) % Plt Count (150-450) k/uL ABG HCO3 (21-25) mmol/L ABG Total CO2 (19-24) mmol/L ABG O2 Saturation (94-97) % Sodium 134 L (137-145) mmol/L Potassium 2.6 L* (3.5-5.1) mmol/L Chloride 95 L (98-107) mmol/L Carbon Dioxide 31 H (22-30) mmol/L BUN 91 H (7-17) mg/dL Glucose 156 H (74-99) mg/dL POC Glucose (mg/dL) 129 H 176 H (70-110) mg/dL Calcium 8.3 L (8.4-10.2) mg/dL Phosphorus 2.4 L (2.5-4.5) mg/dL AST 45 H (14-36) U/L Alkaline Phosphatase 190 H (38-126) U/L Total Protein 4.2 L (6.3-8.2) g/dL Albumin 1.8 L (3.5-5.0) g/dL Crossmatch 09/07/22 09/07/22 09/07/22 Range/Units 05:52 07:56 07:57 RBC 2.86 L (3.80-5.40) m/uL Hgb 8.0 L (11.4-16.0) gm/dL Hct 24.7 L (34.0-46.0) % RDW 22.4 H (11.5-15.5) % Plt Count 23 L D (150-450) k/uL ABG HCO3 31 H (21-25) mmol/L ABG Total CO2 33 H (19-24) mmol/L ABG O2 Saturation 97.5 H (94-97) % Sodium (137-145) mmol/L Potassium (3.5-5.1) mmol/L Chloride (98-107) mmol/L Carbon Dioxide (22-30) mmol/L BUN (7-17) mg/dL Glucose (74-99) mg/dL POC Glucose (mg/dL) 150 H (70-110) mg/dL Calcium (8.4-10.2) mg/dL Phosphorus (2.5-4.5) mg/dL AST (14-36) U/L Alkaline Phosphatase (38-126) U/L Total Protein (6.3-8.2) g/dL Albumin (3.5-5.0) g/dL Crossmatch 09/07/22 Range/Units 12:01 RBC (3.80-5.40) m/uL Hgb (11.4-16.0) gm/dL Hct (34.0-46.0) % RDW (11.5-15.5) % Plt Count (150-450) k/uL ABG HCO3 (21-25) mmol/L ABG Total CO2 (19-24) mmol/L ABG O2 Saturation (94-97) % Sodium (137-145) mmol/L Potassium (3.5-5.1) mmol/L Chloride (98-107) mmol/L Carbon Dioxide (22-30) mmol/L BUN (7-17) mg/dL Glucose (74-99) mg/dL POC Glucose (mg/dL) 142 H (70-110) mg/dL Calcium (8.4-10.2) mg/dL Phosphorus (2.5-4.5) mg/dL AST (14-36) U/L Alkaline Phosphatase (38-126) U/L Total Protein (6.3-8.2) g/dL Albumin (3.5-5.0) g/dL Crossmatch Assessment and Plan (1) Sepsis Current Visit: Yes Status: Acute Code(s): A41.9 - SEPSIS, UNSPECIFIED ORGANISM SNOMED Code(s): 22947430 (2) Acquired hypothyroidism Current Visit: No Status: Acute Code(s): E03.9 - HYPOTHYROIDISM, UNSPECIFIED SNOMED Code(s): 800767277 (3) Acute exacerbation of chronic obstructive pulmonary disease Current Visit: Yes Status: Acute Code(s): J44.1 - CHRONIC OBSTRUCTIVE PULMONARY DISEASE W (ACUTE) EXACERBATION SNOMED Code(s): 771523475 (4) Acute on chronic diastolic (congestive) heart failure Current Visit: No Status: Acute Code(s): I50.33 - ACUTE ON CHRONIC DIASTOLIC (CONGESTIVE) HEART FAILURE SNOMED Code(s): 216671971 (5) Acute on chronic renal failure Current Visit: No Status: Acute Code(s): N17.9 - ACUTE KIDNEY FAILURE, UNSPECIFIED; N18.9 - CHRONIC KIDNEY DISEASE, UNSPECIFIED SNOMED Code(s): 857189199 (6) Acute pulmonary edema Current Visit: No Status: Acute Code(s): J81.0 - ACUTE PULMONARY EDEMA SNOMED Code(s): 36212026 (7) Acute renal failure Current Visit: No Status: Acute Code(s): N17.9 - ACUTE KIDNEY FAILURE, UNSPECIFIED SNOMED Code(s): 67548275 (8) Altered mental status Current Visit: No Status: Acute Code(s): R41.82 - ALTERED MENTAL STATUS, UNSPECIFIED SNOMED Code(s): 556260988 (9) Anemia Current Visit: Yes Status: Acute Code(s): D64.9 - ANEMIA, UNSPECIFIED SNOMED Code(s): 706482790 (10) CAD (coronary atherosclerotic disease) Current Visit: No Status: Acute Code(s): I25.10 - ATHSCL HEART DISEASE OF [place] CORONARY ARTERY W/O ANG PCTRS SNOMED Code(s): 520585261 (11) CHF (congestive heart failure) Current Visit: No Status: Acute Code(s): I50.9 - HEART FAILURE, UNSPECIFIED SNOMED Code(s): 73691300 (12) CKD (chronic kidney disease) stage 3, GFR 30-59 ml/min Current Visit: No Status: Acute Code(s): N18.30 - CHRONIC KIDNEY DISEASE, STAGE 3 UNSPECIFIED SNOMED Code(s): 524331391 (13) COPD exacerbation Current Visit: No Status: Acute Code(s): J44.1 - CHRONIC OBSTRUCTIVE PULMONARY DISEASE W (ACUTE) EXACERBATION SNOMED Code(s): 761678181 (14) COVID-19 Current Visit: No Status: Acute Code(s): U07.1 - COVID-19 SNOMED Code(s): 102107249 (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 Current Visit: No Status: Acute Code(s): M54.42 - LUMBAGO WITH SCIATICA, LEFT SIDE; M54.41 - LUMBAGO WITH SCIATICA, RIGHT SIDE; G89.29 - OTHER CHRONIC PAIN SNOMED Code(s): 345842347 Plan: Acute kidney injury secondary to urinary sepsis, slowly improving Hypotension secondary to sepsis, improved Acute respiratory failure ventilator dependent Left lower lobe pneumonia Urinary tract infection secondary to Pseudomonas and enterococcus improving Elevated liver function secondary to sepsis Aggressive supportive care being provided Prognosis poor secondary to multiorgan failure ventilator dependence and acute kidney injury Tracheostomy placed, This has been discussed with and daughter multiple times Time with Patient: Greater than 30
--- NOTE | 2022-09-07 14:11 | P.PN ---
Subjective Progress Note Date: 09/07/22 CHIEF COMPLAINT: Abdominal pain HISTORY OF PRESENT ILLNESS: Patient remains in the ICU and on mechanical ventilation. Patient had tracheostomy placed on 08/25/2022. Patient was unable to have PEG tube placed because light reflex was not visualized during EGD. Restarting tube feeds through NG tube again today. Patient remains on TPN for nutrition support. Remains on vasopressors. Afebrile. PHYSICAL EXAM: VITAL SIGNS: Reviewed GENERAL: On mechanical ventilation. NECK: Tracheostomy site clean dry and intact ABDOMEN: distended. ASSESSMENT: 1. Acute on chronic hypoxic respiratory failure status post tracheostomy placement 2. Severe protein calorie malnutrition PLAN: -TPN for nutrition support -Continue supportive care -Continue ICU management Physician Factory Engineer note has been reviewed by physician. Signing provider agrees with the documented findings, assessment, and plan of care. Objective - Vital Signs Vital signs: Vital Signs Temp 97.2 F L 09/07/22 12:00 Pulse 98 09/07/22 13:00 Resp 30 H 09/07/22 13:00 BP 128/47 09/02/22 15:00 Pulse Ox 100 09/07/22 13:00 FiO2 40 09/07/22 13:00 Intake & Output 09/06/22 09/07/22 09/07/22 18:59 06:59 18:59 Intake Total 1287.795 6758 1582.596 Output Total 2820 2555 1120 Balance -1537.927 -959 462.596 Weight 129.6 kg Intake: IV 263 709 4758 0.9% @ KVO 180 180 105 Anidulafungin 100 mg In 100 Sodium Chloride 0.9% 100 ml @ 84 mls/hr IVPB DAILY [facility] Rx#:[id number] Ceftolozane/Tazobactam 1. 100 5 gm In Sodium Chloride 0 .9% 100 ml @ 100 mls/hr IV Q8HR [facility] Rx#:[id number] Lacosamide IV 150 mg In 50 50 Sodium Chloride 0.9% 50 ml @ 100 mls/hr IVPB BID [facility] Rx#:[id number] Linezolid 600 mg In 300 300 Dextrose/Water 1 300ml. bag @ 150 mls/hr IVPB Q12H [facility] Rx#:[id number] Normal Saline: Pressure 36 36 21 Bag Phenytoin Sodium Inj 300 50 50 mg In Sodium Chloride 0.9 % 50 ml @ 80 mls/hr IVPB Q12H [facility] Rx#:[id number] Potassium Chloride 20 meq 300 In Water For Injection 1 100ml.bag @ 50 mls/hr IVPB Q2H [facility] Rx#: [id number] Sodium Acetate 50 meq 65 Potassium Chloride 45 meq Magnesium Sulfate gm 0. 75 gm Calcium Gluconate 3 gm Sodium Chloride 4Meq/ ml Vial 40 meq In Amino Acids 5 %/Dextrose 20 % 1 ,000 ml @ 65 mls/hr IV . BY DURATION [facility] Rx#: [id number] levETIRAcetam IV 1,000 mg 100 100 In Saline 1 100ml.bag @ 400 mls/hr IVPB Q12HR [facility] Rx#:[id number] Intake, IV Titration 286.073 100 321.596 Amount Furosemide 100 mg In 93.167 100 100 Sodium Chloride 0.9% 90 ml @ 10 MG/HR 10 mls/hr IV .Q10H [facility] Rx#: [id number] Norepinephrine 32 mg In 85.704 76.858 Sodium Chloride 0.9% 218 ml @ 0.5 MCG/KG/MIN 25. 547 mls/hr IV .Q9H48M [facility] Rx#:[id number] Vasopressin 60 unit In 107.202 144.738 Sodium Chloride 0.9% 150 ml @ 0.04 UNITS/MIN 6.12 mls/hr IV .Q24H [facility] Rx#: [id number] Tube Feeding 40 TPN/PPN 715 780 65 TPN 715 780 65 Other 30 Output: Gastric Drainage 250 Urine 2370 2555 1120 Stool 200 Other: Voiding Method Indwelling Catheter Indwelling Catheter Indwelling Catheter ABP, PAP, CO, CI - Last Documented Arterial Blood Pressure 73/35 - Labs CBC & Chem 7: 09/07/22 07:56 09/07/22 05:16 Labs: Abnormal Lab Results - Last 24 Hours (Table) 08/29/22 09/06/22 09/06/22 Range/Units 05:56 15:56 19:49 RBC (3.80-5.40) m/uL Hgb (11.4-16.0) gm/dL Hct (34.0-46.0) % RDW (11.5-15.5) % Plt Count (150-450) k/uL ABG HCO3 (21-25) mmol/L ABG Total CO2 (19-24) mmol/L ABG O2 Saturation (94-97) % Sodium (137-145) mmol/L Potassium (3.5-5.1) mmol/L Chloride (98-107) mmol/L Carbon Dioxide (22-30) mmol/L BUN (7-17) mg/dL Glucose (74-99) mg/dL POC Glucose (mg/dL) 151 H 156 H (70-110) mg/dL Calcium (8.4-10.2) mg/dL Phosphorus (2.5-4.5) mg/dL AST (14-36) U/L Alkaline Phosphatase (38-126) U/L Total Protein (6.3-8.2) g/dL Albumin (3.5-5.0) g/dL Crossmatch See Detail 09/06/22 09/07/22 09/07/22 Range/Units 23:38 04:11 05:16 RBC (3.80-5.40) m/uL Hgb (11.4-16.0) gm/dL Hct (34.0-46.0) % RDW (11.5-15.5) % Plt Count (150-450) k/uL ABG HCO3 (21-25) mmol/L ABG Total CO2 (19-24) mmol/L ABG O2 Saturation (94-97) % Sodium 134 L (137-145) mmol/L Potassium 2.6 L* (3.5-5.1) mmol/L Chloride 95 L (98-107) mmol/L Carbon Dioxide 31 H (22-30) mmol/L BUN 91 H (7-17) mg/dL Glucose 156 H (74-99) mg/dL POC Glucose (mg/dL) 129 H 176 H (70-110) mg/dL Calcium 8.3 L (8.4-10.2) mg/dL Phosphorus 2.4 L (2.5-4.5) mg/dL AST 45 H (14-36) U/L Alkaline Phosphatase 190 H (38-126) U/L Total Protein 4.2 L (6.3-8.2) g/dL Albumin 1.8 L (3.5-5.0) g/dL Crossmatch 09/07/22 09/07/22 09/07/22 Range/Units 05:52 07:56 07:57 RBC 2.86 L (3.80-5.40) m/uL Hgb 8.0 L (11.4-16.0) gm/dL Hct 24.7 L (34.0-46.0) % RDW 22.4 H (11.5-15.5) % Plt Count 23 L D (150-450) k/uL ABG HCO3 31 H (21-25) mmol/L ABG Total CO2 33 H (19-24) mmol/L ABG O2 Saturation 97.5 H (94-97) % Sodium (137-145) mmol/L Potassium (3.5-5.1) mmol/L Chloride (98-107) mmol/L Carbon Dioxide (22-30) mmol/L BUN (7-17) mg/dL Glucose (74-99) mg/dL POC Glucose (mg/dL) 150 H (70-110) mg/dL Calcium (8.4-10.2) mg/dL Phosphorus (2.5-4.5) mg/dL AST (14-36) U/L Alkaline Phosphatase (38-126) U/L Total Protein (6.3-8.2) g/dL Albumin (3.5-5.0) g/dL Crossmatch 09/07/22 Range/Units 12:01 RBC (3.80-5.40) m/uL Hgb (11.4-16.0) gm/dL Hct (34.0-46.0) % RDW (11.5-15.5) % Plt Count (150-450) k/uL ABG HCO3 (21-25) mmol/L ABG Total CO2 (19-24) mmol/L ABG O2 Saturation (94-97) % Sodium (137-145) mmol/L Potassium (3.5-5.1) mmol/L Chloride (98-107) mmol/L Carbon Dioxide (22-30) mmol/L BUN (7-17) mg/dL Glucose (74-99) mg/dL POC Glucose (mg/dL) 142 H (70-110) mg/dL Calcium (8.4-10.2) mg/dL Phosphorus (2.5-4.5) mg/dL AST (14-36) U/L Alkaline Phosphatase (38-126) U/L Total Protein (6.3-8.2) g/dL Albumin (3.5-5.0) g/dL Crossmatch
[2022-09-07 16:10] LABS: Glucose,Whole Blood 199 mg/dL (70-110)
[2022-09-07 19:53] LABS: Glucose,Whole Blood 194 mg/dL (70-110)
[2022-09-07] MEDS: INSULIN DETEMIR (LEVEMIR) 100 UNIT/ML SYR SQ SCH (20:07)
[2022-09-07] MEDS: POTASSIUM BICARBONATE/CIT AC 20 MEQ TABLET.EFF PO SCH (20:18)
--- NOTE | 2022-09-07 22:29 | P.PN ---
Subjective Progress Note Date: 09/07/22 09/07/2022: Patient clinically unchanged. Patient's daughter was present today. Some concern raised about repeating EEG. Patient is having some periodic eye twitching, and chin twitching, which is concerning for seizures. 09/06/2022: Patient was seen for a follow-up. Patient's daughter was present today. Patient appears more edematous, has developed a couple 1-2 inch big b listers on her lower leg, with serous fluid inside. Patient continues to be on Levophed 0.5 mcg/kg/m and also on norepinephrine 0.04 units per minute. Patient's fingertips hypoxic much worse particularly in the right with significant redness at the borders, with demarcation. The left fingertips a ppears slightly better. Does have gotten worse. Patient has developed blisters. 09/05/2022: Patient was seen for a follow-up. Patient's and their daughter was present today. Patient is essentially unchanged. Patient's believes that she is responding to him. Patient sometimes has a slight twitch of the chin or sometimes twitches of her eyes, which he believes is response. He tried multiple times to get a response from the patient in front of me, but there was no response at all. Some twitches were reflexive, could be epileptic as well. 09/04/2022: Patient was seen for a follow-up. Patient's daughter was present. Patient was seen by Dr. Edouard Peres in the previous 7 days. Please refer to his notes for details. Patient at present on Levophed 0.12 g, and vasopressin 0.04 g. Patient is of Versed and Ativan since 08/30/2022. There is no obvious physical seizure activity. Patient had numerous EEGs, which continues to show subclinical status. Patient's family believes that she is responding, as her chin moved slightly and she is slightly moves her eyes with her lids closed. She may still slightly open her eyes, which appears reflexive rather than involving treat appears. No seizure-like activity noticed at this time either. Patient continues to have severe blackening of the fingertips and the toes, and some sloughing of the skin of the toes. 08/27/2022: Patient was seen for a follow-up. Patient continues to be significantly encephalopathic. No obvious shoulder twitching on the right side was observed. Patient currently on Versed drip 7 mg per hour. Also on other m edications as mentioned from yesterday. Patient has tracheostomy. Awaiting PEG placement. Patient currently on Levophed at 36 mcg/m(0.25 g microgram per minute), and vasopressin 0.02 units per minute. 08/26/2022: Patient was seen for a follow-up. Patient is clinically unchanged. However the seizure-like activity involving right shoulder has completely resolved. Patient currently on Versed 7 mg/h drip. Also on amiodarone, norepinephrine 0.47 mcg/mg per hour, vasopressin 0.04 units per minute. Also on bicarbonate drip. Patient has not had PEG tube placed yet. Patient's believes that when the PEG tube is placed, she will get nutrition and she will get better. Also discussed with patient's daughter and her , who was sitting in the waiting area. Patient's also believes the seizures are related to issues with the lower back region. 08/25/2022: Patient was seen for a follow-up. Patient's and patient's daughter were both present. Patient continues to be comatose. She has intermittent rhythmic twitching of the right shoulder. Patient is already on high dose Keppra, Vimpat adjusted to her renal functions, and Versed drip. Patient already has received Dilantin 1 g IV PB and she is still twitching in the right shoulder. Dilantin level came as 4.5. Patient will receive another loading dose of Dilantin 1 g. Target Dilantin level 12-20. Patient's toes are getting more dusky. Patient has developed some blisters, but that happened before she received Dilantin, therefore not related to Dilantin ALLERGY. Patient has generalized anasarca. 08/24/2022: Patient was seen for a follow-up. Patient is undergoing EEG at this time. Patient continues to have PLEDS. Patient was given Ativan 2 mg without much improvement, then repeated at another 2 mg Ativan. Patient subsequently received Versed 5 mg IV push without improvement, started on Versed drip 5 mg per hour. Patient states on pressors with vasopressin and Levophed. Patient continues to be comatose. Occasional twitching of the right shoulder noticed. I had discussed case with Dr. Hagen yesterday after he reported abnormal prolonged EEG about transfer patient to [facility], but he mentioned that beds were not available. 08/23/2022: Patient was seen for a follow-up. Patient is intubated, not on any sedation. She is on full pressors with Levophed and vasopressin. Also on 3 antibiotics, anti-seizure medications including Keppra and Vimpat. Patient had sporadic seizure-like activity with facial twitching. No definite arm twitching noted. Episode lasted for about 30 minutes. At present there is no twitching noticeable. Patient's and grandchildren were present today. 08/22/2022: Patient was seen for a follow-up. Patient's daughter was also present today. Patient recently had temperature of 100.3. About an hour prior to spiking temperature, patient had some facial twitching, with jaw opening and closing, that lasted for half an hour. No upper extremity movement was noted at that time. Patient continues to be on Keppra 750 mg twice a day. Patient continues to be on high-dose pressors. Patient at present is no code, but full medical treatment. 08/21/2022: Patient initially seen by Dr. Edouard Peres. Please refer to his note for details. Patient is an 87-year-old female with altered mental status. Patient has septic encephalopathy. Patient had a seizure-like activity yesterday at 1:15 PM with head jerking and left arm jerking. Patient was given Ativan 4 mg, and the seizure-like stopped. Patient was given a loading dose of Keppra 1000 mg IV and then maintained on 500 mg twice a day. Patient had again seizure-like activity at 3 AM lasted for 45 minutes and then 5 AM and patient was given another loading dose of 500 mg Keppra. Nurse called me today at around 7:30 AM. It lasted for 20-30 minutes. Patient was again given Valium 4 mg in the seizure- like activity resolved. Patient was started on Vimpat 100 mg twice a day IV PB. EEG was performed today, which was abnormal sleep EEG due to background slowing of moderate degree. Some sharply contoured waves were seen in the left parietal region. No clear-cut epileptiform activity was seen. Objective - Vital Signs Vital signs: Vital Signs Temp 97.0 F L 09/07/22 08:00 Pulse 103 H 09/07/22 10:00 Resp 30 H 09/07/22 10:00 BP 128/47 09/02/22 15:00 Pulse Ox 100 09/07/22 10:00 FiO2 40 09/07/22 10:00 Intake & Output 09/06/22 09/07/22 09/07/22 18:59 06:59 18:59 Intake Total 4383.390 0302 665.920 Output Total 2820 2555 715 Balance -1537.927 -959 -49.080 Weight 129.6 kg Intake: IV 281 716 522 0.9% @ KVO 180 180 60 Anidulafungin 100 mg In 100 Sodium Chloride 0.9% 100 ml @ 84 mls/hr IVPB DAILY [facility] Rx#:[id number] Ceftolozane/Tazobactam 1. 100 5 gm In Sodium Chloride 0 .9% 100 ml @ 100 mls/hr IV Q8HR [facility] Rx#:[id number] Lacosamide IV 150 mg In 50 50 Sodium Chloride 0.9% 50 ml @ 100 mls/hr IVPB BID [facility] Rx#:[id number] Linezolid 600 mg In 300 Dextrose/Water 1 300ml. bag @ 150 mls/hr IVPB Q12H [facility] Rx#:[id number] Normal Saline: Pressure 36 36 12 Bag Phenytoin Sodium Inj 300 50 mg In Sodium Chloride 0.9 % 50 ml @ 80 mls/hr IVPB Q12H [facility] Rx#:[id number] Potassium Chloride 20 meq 100 In Water For Injection 1 100ml.bag @ 50 mls/hr IVPB Q2H [facility] Rx#: [id number] Sodium Acetate 50 meq 65 Potassium Chloride 45 meq Magnesium Sulfate gm 0. 75 gm Calcium Gluconate 3 gm Sodium Chloride 4Meq/ ml Vial 40 meq In Amino Acids 5 %/Dextrose 20 % 1 ,000 ml @ 65 mls/hr IV . BY DURATION [facility] Rx#: [id number] levETIRAcetam IV 1,000 mg 100 100 In Saline 1 100ml.bag @ 400 mls/hr IVPB Q12HR [facility] Rx#:[id number] Intake, IV Titration 286.073 100 68.920 Amount Furosemide 100 mg In 93.167 100 Sodium Chloride 0.9% 90 ml @ 10 MG/HR 10 mls/hr IV .Q10H [facility] Rx#: [id number] Norepinephrine 32 mg In 85.704 68.920 Sodium Chloride 0.9% 218 ml @ 0.5 MCG/KG/MIN 25. 547 mls/hr IV .Q9H48M [facility] Rx#:[id number] Vasopressin 60 unit In 107.202 Sodium Chloride 0.9% 150 ml @ 0.04 UNITS/MIN 6.12 mls/hr IV .Q24H [facility] Rx#: [id number] Tube Feeding 10 TPN/PPN 715 780 65 TPN 715 780 65 Other 0 Output: Gastric Drainage 250 Urine 2370 2555 715 Stool 200 Other: Voiding Method Indwelling Catheter Indwelling Catheter Indwelling Catheter ABP, PAP, CO, CI - Last Documented Arterial Blood Pressure 89/40 - Exam Patient is an elderly female, who is comatose with GCS of 3. Patient is not on any sedation. Patient is off Ativan/Versed since 08/30/2022. Patient continues to be on pressors. Patient does not respond to painful stimuli or calling out loudly. No focal seizure noted involving right shoulder. Patient appears to have slightly more frequent twitches of her eyes and sometimes of the chin. It appears seizure phenomenon. Pupils are equal, round and reacting bilaterally. Oculocephalics are absent, corneals absent. Patient sometimes minimally opens her eyes, but the gaze is more in front. Patient has extremely weak gag if at all. No cough. Reflexes are absent. Patient has significant peripheral edema. Patient's fingers and toes are dusky, cyanotic, now turning black, right side worse than left. - Labs CBC & Chem 7: 09/07/22 07:56 09/07/22 18:00 Labs: Abnormal Lab Results - Last 24 Hours (Table) 08/29/22 09/06/22 09/06/22 Range/Units 05:56 11:55 15:56 RBC (3.80-5.40) m/uL Hgb (11.4-16.0) gm/dL Hct (34.0-46.0) % RDW (11.5-15.5) % Plt Count (150-450) k/uL ABG HCO3 (21-25) mmol/L ABG Total CO2 (19-24) mmol/L ABG O2 Saturation (94-97) % Sodium (137-145) mmol/L Potassium (3.5-5.1) mmol/L Chloride (98-107) mmol/L Carbon Dioxide (22-30) mmol/L BUN (7-17) mg/dL Glucose (74-99) mg/dL POC Glucose (mg/dL) 153 H 151 H (70-110) mg/dL Calcium (8.4-10.2) mg/dL Phosphorus (2.5-4.5) mg/dL AST (14-36) U/L Alkaline Phosphatase (38-126) U/L Total Protein (6.3-8.2) g/dL Albumin (3.5-5.0) g/dL Crossmatch See Detail 09/06/22 09/06/22 09/07/22 Range/Units 19:49 23:38 04:11 RBC (3.80-5.40) m/uL Hgb (11.4-16.0) gm/dL Hct (34.0-46.0) % RDW (11.5-15.5) % Plt Count (150-450) k/uL ABG HCO3 (21-25) mmol/L ABG Total CO2 (19-24) mmol/L ABG O2 Saturation (94-97) % Sodium (137-145) mmol/L Potassium (3.5-5.1) mmol/L Chloride (98-107) mmol/L Carbon Dioxide (22-30) mmol/L BUN (7-17) mg/dL Glucose (74-99) mg/dL POC Glucose (mg/dL) 156 H 129 H 176 H (70-110) mg/dL Calcium (8.4-10.2) mg/dL Phosphorus (2.5-4.5) mg/dL AST (14-36) U/L Alkaline Phosphatase (38-126) U/L Total Protein (6.3-8.2) g/dL Albumin (3.5-5.0) g/dL Crossmatch 09/07/22 09/07/22 09/07/22 Range/Units 05:16 05:52 07:56 RBC 2.86 L (3.80-5.40) m/uL Hgb 8.0 L (11.4-16.0) gm/dL Hct 24.7 L (34.0-46.0) % RDW 22.4 H (11.5-15.5) % Plt Count 23 L D (150-450) k/uL ABG HCO3 31 H (21-25) mmol/L ABG Total CO2 33 H (19-24) mmol/L ABG O2 Saturation 97.5 H (94-97) % Sodium 134 L (137-145) mmol/L Potassium 2.6 L* (3.5-5.1) mmol/L Chloride 95 L (98-107) mmol/L Carbon Dioxide 31 H (22-30) mmol/L BUN 91 H (7-17) mg/dL Glucose 156 H (74-99) mg/dL POC Glucose (mg/dL) (70-110) mg/dL Calcium 8.3 L (8.4-10.2) mg/dL Phosphorus 2.4 L (2.5-4.5) mg/dL AST 45 H (14-36) U/L Alkaline Phosphatase 190 H (38-126) U/L Total Protein 4.2 L (6.3-8.2) g/dL Albumin 1.8 L (3.5-5.0) g/dL Crossmatch 09/07/22 Range/Units 07:57 RBC (3.80-5.40) m/uL Hgb (11.4-16.0) gm/dL Hct (34.0-46.0) % RDW (11.5-15.5) % Plt Count (150-450) k/uL ABG HCO3 (21-25) mmol/L ABG Total CO2 (19-24) mmol/L ABG O2 Saturation (94-97) % Sodium (137-145) mmol/L Potassium (3.5-5.1) mmol/L Chloride (98-107) mmol/L Carbon Dioxide (22-30) mmol/L BUN (7-17) mg/dL Glucose (74-99) mg/dL POC Glucose (mg/dL) 150 H (70-110) mg/dL Calcium (8.4-10.2) mg/dL Phosphorus (2.5-4.5) mg/dL AST (14-36) U/L Alkaline Phosphatase (38-126) U/L Total Protein (6.3-8.2) g/dL Albumin (3.5-5.0) g/dL Crossmatch Assessment and Plan Assessment: * Electographic partial status epilepticus, severe, completely medically intractable, has been having seizures since at least 08/20/2022 (clinically and unsure if patient was having subclinical seizure prior to that). On keppra, Vimpat and Dilantin. Also has tried IV versed and IV ativan, propofol without improvement. IV sedation has been off since 08/30/22. * Altered mental status multifactorial as mentioned below. Partial status, septic encephalopathy, electrolyte imbalance, renal failure, sepsis, and hepatic encephalopathy. * Perforated viscus with pneumoperitoneum. * Septicemia, with leukocytosis and blood culture persistently positive with enterococcus faecium. Blood cultures positive as of 08/23/2022. White cells slightly worse today 21,000. * Hepatic encephalopathy with initial elevated ammonia 214, resolved. * Septic shock requiring high-dose pressors and seems has urinary tract infection with urine culture positive for Enterococcus faecalis and Pseudomonas aeruginosa as well as systemic candidiasis Atrial fibrillation on eliquis (which has hx of afib) , currently on hold. Acute on chronic hypoxemic respiratory failure secondary to diastolic congestive heart failure requiring intubation mechanical ventilation Acute on chronic kidney disease History of TIAs/stroke History of coronary artery disease with stent Hypertension Hyperlipidemia Diabetes mellitus Anemia Hypocalcemia, resolved Plan: * Patient probably continues to have some seizure activity with eye twitching sporadically and chin twitch. Her previous EEGs continues to show subclinical partial status. Patient is off Versed and Ativan drip. She continues to be on 3 antiepileptic medications as mentioned below. Patient's daughter believes including her dad, that patient is showing some meaningful response, which I doubt. Family does not want any more EEGs at this time. They're comfortable as long as patient is not exhibiting overt seizure activity. Patient has occasional twitch of the chin, or the eye, which could be possibly ictal phenomenon. * Patient already on high dose Vimpat 150 mg twice a day, Keppra 1000 mg twice a day (both of them adjusted for current renal functions) and Dilantin 300 mg twice a day. Dilantin level was checked 8.8 however her albumin is very low 1.8. Therefore adjusted Dilantin level is 14.8 which is completely therapeutic. Keppra level 68.9 (3-60). Cannot give Depakote because of hyperammonemia. * Continue Ativan 1-2 mg every 4 hours when necessary seizure. * Prolonged 2.5 hours EEG on 08/24/2022 was abnormal with evidence of runs of 1 Hz LPDs plus there was lateralized periodic discharges, sharp and slow and p raj-sharp and slow waves over the left parietal region with spread more anteriorly. There are also some discharges semi-periodic LPDs over the right posterior quadrants. Exact cause remains uncertain. * Repeat CT head 09/03/2022 revealed cerebral atrophy. No acute intracranial abnormality. I personally reviewed CT head, and agreed no acute process. * ID is also on board. Patient currently on Eraxis, Zerbaxa, Zyvox. Per ID, patient is already covered well for meningitis. * Patient's initial Ammonia was 214. Most recent ammonia level 20 on 09/04/2022. Patient on lactulose. * CT abdomen revealed possibility of perforated viscus. Surgery on board. Patient was considered not a candidate for surgery because of hemodynamic instability. * Patient is still on pressors. Patient is showing blackening of the digits of her hands and feet. * Hypocalcemia, resolved. * We'll defer the rest of medical management to primary and ICU team * Concern raised about repeating EEG. Informed patient's daughter that if the EEG does not show any seizure activity, is fine, however if it shows persi stent seizure activity, would the family want again aggressive treatment. She will discuss with her father and let us know if they want to proceed with EEG. Also discussed with Dr. Palomaers in detail.
[2022-09-08 01:35] LABS: Glucose,Whole Blood 192 mg/dL (70-110)
[2022-09-08] MEDS: CEFTOLOZANE/TAZOBACTAM 1.5 GM in SODIUM CHLORIDE 0.9% 100 ML IV SCH ×3 (02:06→14:43)
[2022-09-08] MEDS: INSULIN ASPART (NovoLOG) 100 UNIT/ML VIAL SQ SCH ×6 (02:07→20:04)
[2022-09-08] MEDS: LINEZOLID 600 MG in DEXTROSE/WATER 1 300ML.BAG IVPB SCH ×2 (02:07→12:06)
[2022-09-08] MEDS ORDERED: 1: MVI, ADULT NO.4 WITH VIT K 10 ML, TRACE (CONC-1ML/DOSE) 1 ML, POTASSIUM PHOSPHATE 9 M IV SCH ×9 (02:30)
[2022-09-08] MEDS: PHENYTOIN SODIUM INJ 300 MG in SODIUM CHLORIDE 0.9% 50 ML IVPB SCH ×2 (03:36→11:59)
[2022-09-08 04:43] LABS: Glucose,Whole Blood 180 mg/dL (70-110)
[2022-09-08 05:11] LABS: Anisocytosis Moderate; Basophils % (A) 0 %; Eosinophils % (A) 0 %; HCT 23.3 % (34.0-46.0); HGB 7.4 gm/dL (11.4-16.0); Hypochromasia Slight; Lymphocytes # (A) 0.5 k/uL (1.0-4.8); Lymphocytes % (A) 6 %; MCH 27.5 pg (25.0-35.0); MCHC 31.6 g/dL (31.0-37.0); MCV 87.1 fL (80.0-100.0); Macrocytosis Slight; Mean Platelet Volume 8.9; Monocytes # (A) 0.2 k/uL (0-1.0); Monocytes % (A) 2 %; Neutrophils # (A) 7.4 k/uL (1.3-7.7); Neutrophils % (A) 90 %; Poikilocytosis Slight; RBC 2.67 m/uL (3.80-5.40); RDW 22.6 % (11.5-15.5); WBC 8.3 k/uL (3.8-10.6)
[2022-09-08 05:15] LABS: Calcium 8.3 mg/dL (8.4-10.2); Magnesium 1.9 mg/dL (1.6-2.3); Phosphorus 2.5 mg/dL (2.5-4.5); Potassium 3.8 mmol/L (3.5-5.1)
[2022-09-08 05:44] LABS: Platelet Count 12 k/uL (150-450)
[2022-09-08] MEDS ORDERED: POTASSIUM BICARBONATE/CIT AC 20 MEQ TABLET.EFF NG-TUBE SCH (06:00)
[2022-09-08] MEDS: MIDODRINE 5 MG TAB PO SCH ×3 (06:32→16:20)
[2022-09-08 06:37] LABS: Partial Thromboplastin Time 25.3 sec (22.0-30.0); Prothrombin Time 10.4 sec (9.0-12.0)
[2022-09-08 06:54] LABS: ABG HCO3 30 mmol/L (21-25); ABG Oxygen Saturation 99.4 % (94-97); ABG PCO2 45 mmHg (35-45); ABG PH 7.44 (7.35-7.45); ABG PO2 133 mmHg (83-108); ABG TCO2 32 mmol/L (19-24); Allen Test Performed? Yes
[2022-09-08] MEDS: PANTOPRAZOLE 40 MG/10 ML VIAL IVP SCH (08:21)
[2022-09-08] MEDS: levETIRAcetam IV 1,000 MG in SALINE 1 100ML.BAG IVPB SCH ×2 (08:22→20:34)
[2022-09-08] MEDS: AMIODARONE 200 MG TAB PO SCH ×2 (08:22→20:35)
[2022-09-08] MEDS: FUROSEMIDE 100 MG in SODIUM CHLORIDE 0.9% 90 ML IV SCH ×3 (08:26→18:51)
[2022-09-08 08:36] LABS: Glucose,Whole Blood 164 mg/dL (70-110)
[2022-09-08] MEDS: ALBUTEROL NEBULIZED 2.5 MG/3 ML INHALATION SCH ×4 (08:37→20:15)
[2022-09-08] MEDS: IPRATROPIUM 0.5 MG/2.5 ML NEBU INHALATION SCH ×4 (08:38→20:15)
[2022-09-08] MEDS: ANIDULAFUNGIN 100 MG in SODIUM CHLORIDE 0.9% 100 ML IVPB SCH (08:40)
[2022-09-08] MEDS: metOLazone 5 MG TAB PO SCH ×2 (08:40→20:35)
[2022-09-08] MEDS: NOREPINEPHRINE 32 MG in SODIUM CHLORIDE 0.9% 218 ML IV SCH ×5 (08:40→18:52)
[2022-09-08] MEDS ORDERED: POTASSIUM CHLORIDE 20 MEQ in WATER FOR INJECTION 1 100ML.BAG IVPB STA (09:00)
[2022-09-08] MEDS ORDERED: MAGNESIUM SULFATE-D5W PMX 1 GM in DEXTROSE/WATER 1 100ML.BAG IVPB ONE (09:30)
--- NOTE | 2022-09-08 09:52 | P.PN ---
Subjective Patient is seen in follow-up for acute kidney injury. Renal function at baseline. Nonoliguric. Currently on Levophed and vasopressin. On Lasix drip. Receiving TPN. Also receiving tube feeds. Family present at bedside. No changes overnight. Vital signs - on vasopressor support. General: Resting in bed. HEENT: Intubated. LUNGS: Breath sounds decreased. HEART: Tachycardic. ABDOMEN: Distention noted. EXTREMITITES: 2+ edema. Objective - Vital Signs Vital signs: Vital Signs Temp 97.8 F 09/08/22 08:00 Pulse 114 H 09/08/22 08:50 Resp 30 H 09/08/22 08:50 BP 128/47 09/02/22 15:00 Pulse Ox 100 09/08/22 08:51 FiO2 40 09/08/22 08:51 Intake & Output 09/07/22 09/08/22 09/08/22 18:59 06:59 18:59 Intake Total 2012.821 1425.333 809 Output Total 1885 1190 245 Balance 127.821 235.333 564 Weight 124.9 kg Intake: IV 1434 1318 579 0.9% @ KVO 195 165 45 Anidulafungin 100 mg In 100 130 Sodium Chloride 0.9% 100 ml @ 84 mls/hr IVPB DAILY [facility] Rx#:[id number] Ceftolozane/Tazobactam 1. 200 100 100 5 gm In Sodium Chloride 0 .9% 100 ml @ 100 mls/hr IV Q8HR [facility] Rx#:[id number] Lacosamide IV 150 mg In 50 50 Sodium Chloride 0.9% 50 ml @ 100 mls/hr IVPB BID [facility] Rx#:[id number] Linezolid 600 mg In 300 300 Dextrose/Water 1 300ml. bag @ 150 mls/hr IVPB Q12H [facility] Rx#:[id number] Mvi, Adult No.4 with Vit 520 195 K 10 ml Trace (Conc-1Ml/ Dose) 1 ml Potassium Phosphate 9 mmol Sodium Acetate 30 meq Potassium Chloride 80 meq Magnesium Sulfate gm 1 gm Sodium Chloride 4Meq/ml Vial 100 meq Calcium Gluconate 3 gm In Amino Acids 5 %/ Dextrose 20 % 1,000 ml @ 65 mls/hr IV .BY DURATION [facility] Rx#:[id number] Normal Saline: Pressure 39 33 9 Bag Phenytoin Sodium Inj 300 50 50 mg In Sodium Chloride 0.9 % 50 ml @ 80 mls/hr IVPB Q12H [facility] Rx#:[id number] Potassium Chloride 20 meq 400 In Water For Injection 1 100ml.bag @ 50 mls/hr IVPB Q2H [facility] Rx#: [id number] levETIRAcetam IV 1,000 mg 100 100 100 In Saline 1 100ml.bag @ 400 mls/hr IVPB Q12HR [facility] Rx#:[id number] Intake, IV Titration 353.821 97.333 230 Amount Anidulafungin 100 mg In 130 Sodium Chloride 0.9% 100 ml @ 84 mls/hr IVPB DAILY [facility] Rx#:[id number] Furosemide 100 mg In 100 97.333 100 Sodium Chloride 0.9% 90 ml @ 10 MG/HR 10 mls/hr IV .Q10H [facility] Rx#: [id number] Norepinephrine 32 mg In 86.184 Sodium Chloride 0.9% 218 ml @ 0.5 MCG/KG/MIN 25. 547 mls/hr IV .Q9H48M [facility] Rx#:[id number] Vasopressin 60 unit In 167.637 Sodium Chloride 0.9% 150 ml @ 0.04 UNITS/MIN 6.12 mls/hr IV .Q24H [facility] Rx#: [id number] Tube Feeding 100 10 TPN/PPN 65 TPN 65 Other 60 Output: Urine 1585 1190 245 Stool 300 Other: Voiding Method Indwelling Catheter Indwelling Catheter Indwelling Catheter ABP, PAP, CO, CI - Last Documented Arterial Blood Pressure 106/47 - Labs CBC & Chem 7: 09/08/22 04:44 09/08/22 04:44 Labs: Abnormal Lab Results - Last 24 Hours (Table) 09/07/22 09/07/22 09/07/22 Range/Units 12:01 16:08 19:51 RBC (3.80-5.40) m/uL Hgb (11.4-16.0) gm/dL Hct (34.0-46.0) % RDW (11.5-15.5) % Plt Count (150-450) k/uL Lymphocytes # (1.0-4.8) k/uL Fibrinogen (200-500) mg/dL ABG pO2 (83-108) mmHg ABG HCO3 (21-25) mmol/L ABG Total CO2 (19-24) mmol/L ABG O2 Saturation (94-97) % Sodium (137-145) mmol/L Chloride (98-107) mmol/L BUN (7-17) mg/dL Glucose (74-99) mg/dL POC Glucose (mg/dL) 142 H 199 H 194 H (70-110) mg/dL Calcium (8.4-10.2) mg/dL 09/08/22 09/08/22 09/08/22 Range/Units 01:34 04:41 04:44 RBC (3.80-5.40) m/uL Hgb (11.4-16.0) gm/dL Hct (34.0-46.0) % RDW (11.5-15.5) % Plt Count (150-450) k/uL Lymphocytes # (1.0-4.8) k/uL Fibrinogen (200-500) mg/dL ABG pO2 (83-108) mmHg ABG HCO3 (21-25) mmol/L ABG Total CO2 (19-24) mmol/L ABG O2 Saturation (94-97) % Sodium 135 L (137-145) mmol/L Chloride 97 L (98-107) mmol/L BUN 97 H (7-17) mg/dL Glucose 170 H (74-99) mg/dL POC Glucose (mg/dL) 192 H 180 H (70-110) mg/dL Calcium 8.3 L (8.4-10.2) mg/dL 09/08/22 09/08/22 09/08/22 Range/Units 04:44 06:02 06:48 RBC 2.67 L (3.80-5.40) m/uL Hgb 7.4 L (11.4-16.0) gm/dL Hct 23.3 L (34.0-46.0) % RDW 22.6 H (11.5-15.5) % Plt Count 12 L* (150-450) k/uL Lymphocytes # 0.5 L (1.0-4.8) k/uL Fibrinogen 573 H (200-500) mg/dL ABG pO2 133 H (83-108) mmHg ABG HCO3 30 H (21-25) mmol/L ABG Total CO2 32 H (19-24) mmol/L ABG O2 Saturation 99.4 H (94-97) % Sodium (137-145) mmol/L Chloride (98-107) mmol/L BUN (7-17) mg/dL Glucose (74-99) mg/dL POC Glucose (mg/dL) (70-110) mg/dL Calcium (8.4-10.2) mg/dL 09/08/22 Range/Units 08:34 RBC (3.80-5.40) m/uL Hgb (11.4-16.0) gm/dL Hct (34.0-46.0) % RDW (11.5-15.5) % Plt Count (150-450) k/uL Lymphocytes # (1.0-4.8) k/uL Fibrinogen (200-500) mg/dL ABG pO2 (83-108) mmHg ABG HCO3 (21-25) mmol/L ABG Total CO2 (19-24) mmol/L ABG O2 Saturation (94-97) % Sodium (137-145) mmol/L Chloride (98-107) mmol/L BUN (7-17) mg/dL Glucose (74-99) mg/dL POC Glucose (mg/dL) 164 H (70-110) mg/dL Calcium (8.4-10.2) mg/dL Assessment and Plan Plan: Assessment: 1. Acute kidney injury secondary to ATN secondary to septic shock. Baseline creatinine near 0.8 from June 2022 - peaked at 2.77 this admission - 0.76 today. Nonoliguric. No hydronephrosis noted on CAT scan. 2. Septic shock secondary to UTI, fungemia and bacteremia. CAT scan done in 08/20/2022 showed pneumoperitoneum. On antibiotics/antifungal and vasopressor support. 3. Metabolic acidosis secondary to acute kidney injury. s/p bicarb drip. 4. Hypokalemia from diuresis. Being replaced. Also on maintenance dose. 5. Acute hypoxic respiratory failure. 6. A. fib with RVR. On po amiodarone. Cardiology following. 8. Hyponatremia secondary to acute kidney injury. Hypervolemic. 9. Hypocalcemia secondary to acute kidney injury. Improved. 10. Severe volume overload. 11. Status post tracheostomy this admission. Plan: Maintain Lasix drip. Maintain TPN; also started on tube feeds yesterday. Wean FiO2 and vasopressors. Avoid nephrotoxins. Continue to monitor renal function and urine output. Prognosis poor. Continue to assess daily for need for renal replacement therapy. Stopped vit D.
--- NOTE | 2022-09-08 10:41 | P.PN ---
Subjective Progress Note Date: 09/08/22 On today's evaluation of 09/04/2022, seeing the patient for a follow-up. The patient is a very complex case, an 87-year-old female patient remains in septic shock, unresponsive, on a mechanical ventilator, being followed up in the intensive care unit, still seeing several consultants regarding her complex situation. In summary, this patient has been on a mechanical ventilator for septic shock. During her course of her illness, the patient had various infections, as the patient's initial infection was related to Enterococcus faecalis and pseudomonas aeruginosa in her urine and subsequently the patient became septic and grew anaerobic gram-negative bacillus in the blood and this was thought to be related to an ischemic bowel and following that, the patient developed sputum positive for Ange and the blood culture was also positive for Ange albicans on 08/11/2022. Subsequent sputum from 08/19/2022 was positive for MRSA, blood culture was positive for VRE on 08/19/2022 and repeated blood culture from 08/23/2022 was again positive for VRE. The patient is currently on a combination of Zerbaxa , eraxis and Zyvox. This morning, the patient is not receiving any sedation. As mentioned, she is completely unresponsive. she was seen by neurology on multiple occasions. The patient's m ost recent CAT scan of the brain that was done on 09/03/2022 showed evidence of cerebral atrophy without any acute changes. EEG that was done on 09/01/2022 showed evidence of burst suppression discharges suggestive of nonconvulsive status Versus anoxia the brain. There is also background slowing suggestive of severe encephalopathy. The patient does not respond to any verbal. She does not identify any painful stimulation. She has been off sedation for quite some time and I do not to follow this patient back into 2022. She remains on a mechanical ventilator. Noted the patient had received a tracheostomy and currently is on assist-control mode of mechanical ventilation. She is currently on a rate of 30 with a tidal volume of 400 and FiO2 of 40% with a PEEP of 10. Chest x-ray showing dense consolidation of the lung bases bilaterally. Blood gas from today shows a pH of 7.39, pCO2 of 46, pO2 133. Hemodynamically, she is on pressors and the patient is on vasopressin physiologic data that 0.04 units and the patient is also on norepinephrine running at 0.14 mcg/kg/m. She remains on a running at 10 mg an hour. Overall fluid balance is -2.6 L over the past 24 hours and the patient is responding nicely to the diuretics. Note that the most recent blood culture that was done on 08/29/2022 showed no evidence of any microbial growth. There is evidence currently of 14.6 with a hemoglobin of 8.4 and a platelet count of 104. BUN is at 19 with a creatinine of 1.2 and a sodium level is at 129. AST is 46, ALT is 27, alkaline phosphatase 187. Blood sugars at 1:30 from this morning. She still has a triple-lumen catheter in her left subclavian vein. She also has not. Right femoral. Patient is on Levemir insulin 15 units at bedtime in addition to NovoLog based on a sliding scale coverage. Antibiotics will mentioned above. TPN is running at the rate of 65 mL an hour. She is on amiodarone 400 mg by mouth twice a day and her current cardiac rhythm is controlled atrial fibrillation. She is on no anticoagulants for now. In terms of bowel movement activity, the patient is producing large amounts of stool and she has a fecal management system in Place. The patient remains on laxatives. The patient is a combination of MiraLAX and lactulose. Most recent ammonia level is at 20. On today's evaluation of 09/05/2022, I'm seeing the patient for a follow-up. Clinically unchanged. Off sedation. Unresponsive. Still on the mechanical ventilator and the patient has been switched to no colds. Nevertheless, the wanted to continue ongoing treatment with the understanding that the patient carries a very poor prognosis because of septic shock and multisystem organ failure. For now, the patient is on no sedation. The patient is unresponsive. The patient is not following any commands. The patient has been off sedation since 08/30/2022. The patient remains on mechanical ventilator and she is essentially on the same ventilator setting. She is currently on assist- control mode of mechanical ventilation with a rate of 30, tidal volume of 400, FiO2 of 40% and a PEEP of 10. The blood gas from today showed a pH of 7.4 with a pCO2 of 47 and pO2 of 110. Chest x-ray from today is not done. The last chest x-ray was from 09/03/2022. We'll repeat another chest x-ray tomorrow. The last chest x-ray showed tracheostomy and NG tube being in good location. The patient continues to have bilateral airspace disease. Hemodynamically, the patient's current cardiac rhythm is controlled a chest fibrillation. The patient is on pressors. The patient is on a norepinephrine at a rate of 0.13 mcg/kg/m. The patient remains on Lasix drip at 10 mg an hour. The patient is also on vasopressin physiologic dose of 0.04 units an hour. The patient is also receiving TPN for nutritional support. TPN is running at 65 mL an hour. Overall fluid balance over the past 24 hours has been in the order of -5.2 L as the patient is being aggressively diuresed. Meanwhile, a trial of enteral feeding was given to this patient in the patient failed to tolerate enteral feeding. She has a fecal management system in Place and she is still having liquidy loose stools. The abdomen is nondistended. The response of 10.6 with a hemoglobin of 8.2 and a platelet count of 66 which is a drop compared to yesterday. In same time, the patient has a sodium of 131, potassium of 3.2, and a potassium level has been placed, BUN is at 88 with a creatinine of 1.0 and is using a 27. Patient has a AST of 50, ALT of 28, alkaline phosphatase of 206, and albumin is at 1.8 with a total protein of 4.3. Glucose at 126. No new cultures are not available the most recent culture of the blood was from 08/29/2002 and this was negative. On 09/06/2022, clinically unchanged and the patient remains unresponsive. She grimaces only to deep painful stimulation. Otherwise, she does not open up her eyes spontaneously. She does not follow any commands. She has been off sedation for more than a week. She remains in septic shock with multisystem organ failure. For now, the patient's is on a mechanical ventilator through tracheostomy tube. The patient remains on assist-control mode of mechanical ventilation at the rate of 30 with a tidal volume of 400 and FiO2 of 40% and a P EEP is currently at 6. Meanwhile, the blood gas from today showed a pH of 7.42 with a pCO2 of 47 and a pO2 of 133. The patient is not having any significant orotracheal secretions. The chest x-ray that was done yesterday on 09/05/2022 showed adequate positioning of the tracheostomy tube. NG tube is also in good location. The patient has persistent bilateral pulmonary infiltration and pleural effusions. The chest x-ray findings of essentially unchanged. There may be just some air within the abdomen is on the x-ray findings and we noted the patient had pneumoperitoneum earlier. In terms of feeding, the patient was unable to tolerate enteral feeding. She was having high NG output. Bowel sounds are still sluggish. Based on that, the patient was kept on TPN for nutritional support which is running at the rate of 65 mL an hour. She remains on IV fluids at KVO. She is on norepinephrine which is running at 0.11 mcg/kg/m. Urine output is adequate. Overall fluid balance is -1.1 L over the past 24 hours as the patient is being also diuresed with IV Lasix and the patient is receiving Lasix drip at 10 mg an hour. There is improvement in the third spacing and edema in the upper and lower oximetry is bilaterally. Nevertheless, the patient continues to have digital necrosis in her toes and her fingers. Fecal management system still in place. The patient remains on the same antibiotic coverage for now. The patient's blood work from today shows a sodium of 133, potassium of 3.2, chloride of 95 with a bicarb of 29. LFTs are unchanged. The patient's WBC count from yesterday was at 10.6 with a hemoglobin of 8.2. Most recent blood culture from 08/29/2022 was negative. 09/07/2022, the patient remains off sedation. Unresponsive still. Past- pointing is eye-opening. She opens her mouth. Does not smoke. Does not follow any commands. At times, there is some postnasal eye-opening. No seizure activity has been noted. The patient remains on a combination of antiepileptic medications and the patient is currently on a combination of Dilantin, Keppra and Vimpat. Neurology still on the case. The patient did have some partial seizures on earlier EKGs and subsequent her seizures were controlled. Meanwhile, she remains on mechanical ventilator. As mentioned earlier, the patient is tracheostomy tube in place. The patient is on assist-control mode of mechanical ventilation at the rate of 30 with a tidal volume of 400 and FiO2 of 40% with a PEEP of 6. The blood gas from today shows a pH of 7.45 with a pCO2 45 and pO2 of 88. No significant orotracheal secretions. Hemodynamically, there is further improvement in fluid balance as the patient remains on Lasix drip at 10 mg an hour. The overall fluid balance has been negative in the order of 2.4 L. The patient is still on pressors were norepinephrine and the pressors have been weaned down to 0.0 aches micrograms per kilogram per minute. The patient remains on physiologic dose of vasopressin. IV fluids are currently at KVO. She remains in atrial fibrillation. Her BUN is at 91 with a creatinine of 0.9. Bicarb is at 31. Sodium is at 136 with a potassium level of 2.6 and this dates to be replaced. TPN is running at the rate of 65 mL an hour. No fever and the patient had another set of blood cultures sent yesterday. Otherwise, no other significant events. Family is being updated on her condition on daily basis. is not ready to let go. 09/08/2022, clinically unchanged and the patient remains unresponsive. I'm not seeing any signs of neurologic recovery in this patient. Remains unresponsive with 24 but or painful stimulation. No cough or gag. She is able to generate breaths above the mechanical ventilator. She occasionally spontaneously opens up her eyes. Still deeply comatose. No seizure activity has been noted. Suspect underlying component of encephalopathy, could be anoxic, could be metabolic. The patient meanwhile is on a mechanical ventilator. She is a tracheostomy. Ventilator settings are essentially unchanged with a rate of 30, tidal volume 400, FiO2 of 40% and PEEP is currently at 5. PH is 7.4 with a pCO2 of 45 and a pO2 of 133. As such, there is adequate oxygenation for now. In terms of hemodynamics, the patient is on minimal doses of pressors. The patient remains on vasopressin physiologic dose and norepinephrine running at 0.06 mcg/kg/m and this should be able to come off within the next 24 hours. The white suppositive 0.3. Repeat cultures were sent and the results are still pending for now. No fever. Remains on the same antibiotic coverage. On a separate note, the patient had a progressive drop in the platelet count over the past 4 days. She has not taken any heparin at this point in time. She never took heparin. She would've taken Lovenox several weeks back. Her platelet count is currently down to 12. No signs of any acute bleeding at this point in time. Hemoglobin is at 7.4. Cognition profile was done and there is no signs of DIC. Normal PT/PTT and INR. Fibrinogen level is at 573, slightly elevated. Hematology consultation was obtained regarding the strep and a platelet count. We'll send also heparin-induced antibodies. We attempted to and 32 this patient. She continues to have high residuals. Currently she is still on TPN for nutritional support and vital AF is still running at the rate of 10 mL an hour. Fecal management system is still in place. The patient is producing stool in the order of 400 mL on a daily basis and this is liquidy stool. The patient's electrolytes are all within normal limits. The BUN is at 97 with a creatinine of 0.7. Sodiums of 135. Her cardiac rhythm is sinus pH she remains on amiodarone. She is still on Lasix drip at 10 mg an hour. Lives with balance over the past 24 hours have been -2.4 L and the patient is still having significant amount of third spacing and edema which is essentially improving as the patient is headed towards negative fluid balance on a daily basis. She continues to have necrotic digits which remained essentially unchanged. Of concern is the neurologic impairment and the patient is still unresponsive. Remain on the same antibiotic coverage which includes Zyvox, Zerbaxa and Eraxis. Objective - Vital Signs Vital signs: Vital Signs Temp 97.8 F 09/08/22 08:00 Pulse 114 H 09/08/22 08:50 Resp 30 H 09/08/22 08:50 BP 128/47 09/02/22 15:00 Pulse Ox 100 09/08/22 08:51 FiO2 40 09/08/22 08:51 Intake & Output 09/07/22 09/08/22 09/08/22 18:59 06:59 18:59 Intake Total 2012.821 1425.333 809 Output Total 1885 1190 245 Balance 127.821 235.333 564 Weight 124.9 kg Intake: IV 1434 1318 579 0.9% @ KVO 195 165 45 Anidulafungin 100 mg In 100 130 Sodium Chloride 0.9% 100 ml @ 84 mls/hr IVPB DAILY [facility] Rx#:[id number] Ceftolozane/Tazobactam 1. 200 100 100 5 gm In Sodium Chloride 0 .9% 100 ml @ 100 mls/hr IV Q8HR [facility] Rx#:[id number] Lacosamide IV 150 mg In 50 50 Sodium Chloride 0.9% 50 ml @ 100 mls/hr IVPB BID [facility] Rx#:[id number] Linezolid 600 mg In 300 300 Dextrose/Water 1 300ml. bag @ 150 mls/hr IVPB Q12H [facility] Rx#:[id number] Mvi, Adult No.4 with Vit 520 195 K 10 ml Trace (Conc-1Ml/ Dose) 1 ml Potassium Phosphate 9 mmol Sodium Acetate 30 meq Potassium Chloride 80 meq Magnesium Sulfate gm 1 gm Sodium Chloride 4Meq/ml Vial 100 meq Calcium Gluconate 3 gm In Amino Acids 5 %/ Dextrose 20 % 1,000 ml @ 65 mls/hr IV .BY DURATION [facility] Rx#:[id number] Normal Saline: Pressure 39 33 9 Bag Phenytoin Sodium Inj 300 50 50 mg In Sodium Chloride 0.9 % 50 ml @ 80 mls/hr IVPB Q12H [facility] Rx#:[id number] Potassium Chloride 20 meq 400 In Water For Injection 1 100ml.bag @ 50 mls/hr IVPB Q2H [facility] Rx#: [id number] levETIRAcetam IV 1,000 mg 100 100 100 In Saline 1 100ml.bag @ 400 mls/hr IVPB Q12HR [facility] Rx#:[id number] Intake, IV Titration 353.821 97.333 230 Amount Anidulafungin 100 mg In 130 Sodium Chloride 0.9% 100 ml @ 84 mls/hr IVPB DAILY [facility] Rx#:[id number] Furosemide 100 mg In 100 97.333 100 Sodium Chloride 0.9% 90 ml @ 10 MG/HR 10 mls/hr IV .Q10H [facility] Rx#: [id number] Norepinephrine 32 mg In 86.184 Sodium Chloride 0.9% 218 ml @ 0.5 MCG/KG/MIN 25. 547 mls/hr IV .Q9H48M [facility] Rx#:[id number] Vasopressin 60 unit In 167.637 Sodium Chloride 0.9% 150 ml @ 0.04 UNITS/MIN 6.12 mls/hr IV .Q24H [facility] Rx#: [id number] Tube Feeding 100 10 TPN/PPN 65 TPN 65 Other 60 Output: Urine 1585 1190 245 Stool 300 Other: Voiding Method Indwelling Catheter Indwelling Catheter Indwelling Catheter ABP, PAP, CO, CI - Last Documented Arterial Blood Pressure 106/47 - Exam GENERAL EXAM: Intubated, sedated, 87-year-old morbidly obese female HEAD: Normocephalic. EYES: Sluggish reaction of pupils, equal size. NOSE: Nasogastric tube secured in place. Clear with pink turbinates. THROAT: Oral endotracheal tube in place. NECK: No masses, no JVD. CHEST: No chest wall deformity. LUNGS: Equal air entry with crackles in the bilateral bases. CVS: S1 and S2 normal with no audible murmur, irregular rhythm. ABDOMEN: No hepatosplenomegaly, normal bowel sounds, no guarding or rigidity. SPINE: No scoliosis or deformity SKIN: No rashes CENTRAL NERVOUS SYSTEM: Sedated, tone is normal in all 4 extremities. EXTREMITIES: There is 1-2+ peripheral edema. Changes of chronic venous stasis. No clubbing, no cyanosis. Peripheral pulses are intact. - Labs CBC & Chem 7: 09/08/22 04:44 09/08/22 04:44 Labs: Abnormal Lab Results - Last 24 Hours (Table) 09/07/22 09/07/22 09/07/22 Range/Units 12:01 16:08 19:51 RBC (3.80-5.40) m/uL Hgb (11.4-16.0) gm/dL Hct (34.0-46.0) % RDW (11.5-15.5) % Plt Count (150-450) k/uL Lymphocytes # (1.0-4.8) k/uL Fibrinogen (200-500) mg/dL ABG pO2 (83-108) mmHg ABG HCO3 (21-25) mmol/L ABG Total CO2 (19-24) mmol/L ABG O2 Saturation (94-97) % Sodium (137-145) mmol/L Chloride (98-107) mmol/L BUN (7-17) mg/dL Glucose (74-99) mg/dL POC Glucose (mg/dL) 142 H 199 H 194 H (70-110) mg/dL Calcium (8.4-10.2) mg/dL 09/08/22 09/08/22 09/08/22 Range/Units 01:34 04:41 04:44 RBC (3.80-5.40) m/uL Hgb (11.4-16.0) gm/dL Hct (34.0-46.0) % RDW (11.5-15.5) % Plt Count (150-450) k/uL Lymphocytes # (1.0-4.8) k/uL Fibrinogen (200-500) mg/dL ABG pO2 (83-108) mmHg ABG HCO3 (21-25) mmol/L ABG Total CO2 (19-24) mmol/L ABG O2 Saturation (94-97) % Sodium 135 L (137-145) mmol/L Chloride 97 L (98-107) mmol/L BUN 97 H (7-17) mg/dL Glucose 170 H (74-99) mg/dL POC Glucose (mg/dL) 192 H 180 H (70-110) mg/dL Calcium 8.3 L (8.4-10.2) mg/dL 09/08/22 09/08/22 09/08/22 Range/Units 04:44 06:02 06:48 RBC 2.67 L (3.80-5.40) m/uL Hgb 7.4 L (11.4-16.0) gm/dL Hct 23.3 L (34.0-46.0) % RDW 22.6 H (11.5-15.5) % Plt Count 12 L* (150-450) k/uL Lymphocytes # 0.5 L (1.0-4.8) k/uL Fibrinogen 573 H (200-500) mg/dL ABG pO2 133 H (83-108) mmHg ABG HCO3 30 H (21-25) mmol/L ABG Total CO2 32 H (19-24) mmol/L ABG O2 Saturation 99.4 H (94-97) % Sodium (137-145) mmol/L Chloride (98-107) mmol/L BUN (7-17) mg/dL Glucose (74-99) mg/dL POC Glucose (mg/dL) (70-110) mg/dL Calcium (8.4-10.2) mg/dL 09/08/22 Range/Units 08:34 RBC (3.80-5.40) m/uL Hgb (11.4-16.0) gm/dL Hct (34.0-46.0) % RDW (11.5-15.5) % Plt Count (150-450) k/uL Lymphocytes # (1.0-4.8) k/uL Fibrinogen (200-500) mg/dL ABG pO2 (83-108) mmHg ABG HCO3 (21-25) mmol/L ABG Total CO2 (19-24) mmol/L ABG O2 Saturation (94-97) % Sodium (137-145) mmol/L Chloride (98-107) mmol/L BUN (7-17) mg/dL Glucose (74-99) mg/dL POC Glucose (mg/dL) 164 H (70-110) mg/dL Calcium (8.4-10.2) mg/dL Assessment and Plan Plan: Acute on chronic hypoxemic respiratory failure, status post intubation on August 10, and tracheostomy on August 25. Chest x-ray continues to show consolidation of the lung bases and pleural effusions bilaterally. Oxygen is stable and the patient remains on a mechanical ventilator assist control mode and the patient has a tracheostomy tube in place. No change in oxygenation and the patient's overall respiratory status is stable. The patient has adequate oxygenation for now. Blood gas was noted. Bilateral lower lobe pneumonia with persistent consolidation lung bases. Most recent sputum indicating MRSA and Ange from 08/19/2022 no chest x-ray over the past 48 hours Septic shock of multiple sources. The patient had initially Enterococcus faecalis and Pseudomonas in her urine on 08/08/2022. The patient also had anae robic gram-negative bacillus in her blood probably of an end of the abdominal source. Subsequently, the patient had systemic candidemia on 08/19/2022 and VRE in her blood on 08/23/2022. She remains on pressors. Note that review blood cultures were sent. The patient remains on a physiologic dose of vasopressin and norepinephrine at 0.06 mcg/kg/m. repeat cultures are still pending for now Unresponsive, CAT scan of the brain is negative, EEG showing severe encephalopathy, most recent CAT scan of the brain was done on 09/03/2022 and it showed cerebral atrophy without any acute abnormalities. The patient remains severely encephalopathic. The patient had partial seizures confirmed by EEG and the patient is on a combination of antiepileptic medication including dilantin and Keppra. Neurology is still on the case. Clinically unchanged TPN nutritional support, failed EN Acute on chronic diastolic CHF. Abdominal sepsis/septic shock. Anion gap metabolic acidosis. Urinary tract infection secondary to Enterococcus faecalis and pseudomonas aeruginosa. Bacteremia secondary to vancomycin-resistant enterococci (VRE) Systemic candidiasis. The patient systemic candidemia confirmed by positive blood culture. Repeat blood culture was negative and the patient is current on Eraxis. Atrial fibrillation with RVR, rate controled for now Acute on chronic kidney disease. The creatinine is stable and the patient is currently on Lasix drip running at 10 mg an hour Recent history of coronavirus infection. History of aortic stenosis. Acute on chronic anemia. History of COPD. History of diastolic congestive heart failure. Morbid obesity. Diarrhea with fecal management system in Place Necrotic digits of the upper and lower extremities and the patient has gangrenous toes and fingers probably related to chronic sepsis, hypotension, and use of pressors Pressure ulcer on her coccyx Due to thrombocytopenia with a drop in the platelet count down to 19. No bleeding. No evidence of DIC. Rule out drug induced. Plan: Consult hematology regarding thrombocytopenia Continue ventilator support, or changes for today Repeat blood cultures, results are pending, negative thus far Continue same antibiotic coverage, may need to modify antibiotics especially the thrombocytopenia is antibiotic induced. Continue trigger feeding with enteral nutrition, vitamin AF at the rate of 10 mL an hour Continue TPN for nutritional support Continue Lasix drip at 10 mg an hour for another 24 hours as the patient's has diabetes adequately and there is improvement in volume status Discontinue the vasopressin and subsequently another norepinephrine no sadation Continue midodrine 10 mg tid Avoid sedatives for now, the patient has been off sedation for more than a week. No reasonable neurological recovery. Most recent CAT scan of the brain was done on 09/03/2022 showing no acute changes Wound care Extremely poor prognosis. This has been discussed with the family on multiple occasions. Condition is critical and prognosis poor. We'll continue to follow. This evaluation was a on more than 30 minutes. is not ready to Go and is not considering comfort care measures yet. Her chance of recovery is extremely low for and this has been explained to the daughter and the on multiple occasions. Time with Patient: Greater than 30
[2022-09-08 11:11] VITALS: BMI 48.7
[2022-09-08] MEDS: LACOSAMIDE IV 150 MG in SODIUM CHLORIDE 0.9% 50 ML IVPB SCH ×2 (11:58→20:35)
[2022-09-08] MEDS: FAT EMULSION 20% 250 ML in EMPTY BAG 1 BAG IV SCH (11:59)
[2022-09-08 12:07] LABS: Glucose,Whole Blood 137 mg/dL (70-110)
--- NOTE | 2022-09-08 12:59 | P.PN ---
Subjective Progress Note Date: 09/08/22 Principal diagnosis: Sepsis/septic shock Patient is a 87-year-old female with multiple comorbidities presented to the hospital with a syncopal episode weakness subsequently hypotension, sepsis requiring transfer to the ICU and intubation on the vent. She patient did have a CT of abdominal pelvis completed on 08/20/2022 with evidence of pneumoperitoneum Gen. surgery discussed with the family currently being treated medically On today's evaluation that is 09/08/2022, the patient remains to be afebrile, the patient is requiring slightly less pressor support to maintain her blood pressure today per the Nursing staff, the patient FiO2 is stable at 40 %, no purulent secretions through the ET , patient did have NG to suction,, patient did have a fecal management system for her diarrhea, no worsening output Reported Objective - Vital Signs Vital signs: Vital Signs Temp 97.8 F 09/08/22 08:00 Pulse 111 H 09/08/22 10:00 Resp 33 H 09/08/22 10:00 BP 128/47 09/02/22 15:00 Pulse Ox 99 09/08/22 10:00 FiO2 40 09/08/22 08:51 Intake & Output 09/07/22 09/08/22 09/08/22 18:59 06:59 18:59 Intake Total 2012.821 0826.134 6000.852 Output Total 1885 1190 520 Balance 127.821 235.333 625.852 Weight 124.9 kg 124.9 kg Intake: IV 1434 1318 745 0.9% @ KVO 195 165 75 Anidulafungin 100 mg In 100 130 Sodium Chloride 0.9% 100 ml @ 84 mls/hr IVPB DAILY [facility] Rx#:[id number] Ceftolozane/Tazobactam 1. 200 100 100 5 gm In Sodium Chloride 0 .9% 100 ml @ 100 mls/hr IV Q8HR [facility] Rx#:[id number] Lacosamide IV 150 mg In 50 50 Sodium Chloride 0.9% 50 ml @ 100 mls/hr IVPB BID [facility] Rx#:[id number] Linezolid 600 mg In 300 300 Dextrose/Water 1 300ml. bag @ 150 mls/hr IVPB Q12H [facility] Rx#:[id number] Mvi, Adult No.4 with Vit 520 325 K 10 ml Trace (Conc-1Ml/ Dose) 1 ml Potassium Phosphate 9 mmol Sodium Acetate 30 meq Potassium Chloride 80 meq Magnesium Sulfate gm 1 gm Sodium Chloride 4Meq/ml Vial 100 meq Calcium Gluconate 3 gm In Amino Acids 5 %/ Dextrose 20 % 1,000 ml @ 65 mls/hr IV .BY DURATION [facility] Rx#:[id number] Normal Saline: Pressure 39 33 15 Bag Phenytoin Sodium Inj 300 50 50 mg In Sodium Chloride 0.9 % 50 ml @ 80 mls/hr IVPB Q12H [facility] Rx#:[id number] Potassium Chloride 20 meq 400 In Water For Injection 1 100ml.bag @ 50 mls/hr IVPB Q2H [facility] Rx#: [id number] levETIRAcetam IV 1,000 mg 100 100 100 In Saline 1 100ml.bag @ 400 mls/hr IVPB Q12HR [facility] Rx#:[id number] Intake, IV Titration 353.821 97.333 400.852 Amount Anidulafungin 100 mg In 130 Sodium Chloride 0.9% 100 ml @ 84 mls/hr IVPB DAILY [facility] Rx#:[id number] Furosemide 100 mg In 100 97.333 100 Sodium Chloride 0.9% 90 ml @ 10 MG/HR 10 mls/hr IV .Q10H [facility] Rx#: [id number] Norepinephrine 32 mg In 86.184 53.348 Sodium Chloride 0.9% 218 ml @ 0.5 MCG/KG/MIN 25. 547 mls/hr IV .Q9H48M [facility] Rx#:[id number] Vasopressin 60 unit In 167.637 117.504 Sodium Chloride 0.9% 150 ml @ 0.04 UNITS/MIN 6.12 mls/hr IV .Q24H [facility] Rx#: [id number] Tube Feeding 100 10 TPN/PPN 65 TPN 65 Other 60 Output: Urine 1585 1190 520 Stool 300 Other: Voiding Method Indwelling Catheter Indwelling Catheter Indwelling Catheter ABP, PAP, CO, CI - Last Documented Arterial Blood Pressure 111/47 - Exam GENERAL DESCRIPTION: An elderly female intubated on the vent RESPIRATORY SYSTEM: Unlabored breathing , decreased breath sounds at bases HEART: S1 S2 regular rate and rhythm , ABDOMEN: Soft , abdominal distention EXTREMITIES: Diffuse swelling bilateral lower extremity no redness - Labs CBC & Chem 7: 09/08/22 04:44 09/08/22 04:44 Labs: Abnormal Lab Results - Last 24 Hours (Table) 09/07/22 09/07/22 09/07/22 Range/Units 12:01 16:08 19:51 RBC (3.80-5.40) m/uL Hgb (11.4-16.0) gm/dL Hct (34.0-46.0) % RDW (11.5-15.5) % Plt Count (150-450) k/uL Lymphocytes # (1.0-4.8) k/uL Fibrinogen (200-500) mg/dL ABG pO2 (83-108) mmHg ABG HCO3 (21-25) mmol/L ABG Total CO2 (19-24) mmol/L ABG O2 Saturation (94-97) % Sodium (137-145) mmol/L Chloride (98-107) mmol/L BUN (7-17) mg/dL Glucose (74-99) mg/dL POC Glucose (mg/dL) 142 H 199 H 194 H (70-110) mg/dL Calcium (8.4-10.2) mg/dL 09/08/22 09/08/22 09/08/22 Range/Units 01:34 04:41 04:44 RBC (3.80-5.40) m/uL Hgb (11.4-16.0) gm/dL Hct (34.0-46.0) % RDW (11.5-15.5) % Plt Count (150-450) k/uL Lymphocytes # (1.0-4.8) k/uL Fibrinogen (200-500) mg/dL ABG pO2 (83-108) mmHg ABG HCO3 (21-25) mmol/L ABG Total CO2 (19-24) mmol/L ABG O2 Saturation (94-97) % Sodium 135 L (137-145) mmol/L Chloride 97 L (98-107) mmol/L BUN 97 H (7-17) mg/dL Glucose 170 H (74-99) mg/dL POC Glucose (mg/dL) 192 H 180 H (70-110) mg/dL Calcium 8.3 L (8.4-10.2) mg/dL 09/08/22 09/08/22 09/08/22 Range/Units 04:44 06:02 06:48 RBC 2.67 L (3.80-5.40) m/uL Hgb 7.4 L (11.4-16.0) gm/dL Hct 23.3 L (34.0-46.0) % RDW 22.6 H (11.5-15.5) % Plt Count 12 L* (150-450) k/uL Lymphocytes # 0.5 L (1.0-4.8) k/uL Fibrinogen 573 H (200-500) mg/dL ABG pO2 133 H (83-108) mmHg ABG HCO3 30 H (21-25) mmol/L ABG Total CO2 32 H (19-24) mmol/L ABG O2 Saturation 99.4 H (94-97) % Sodium (137-145) mmol/L Chloride (98-107) mmol/L BUN (7-17) mg/dL Glucose (74-99) mg/dL POC Glucose (mg/dL) (70-110) mg/dL Calcium (8.4-10.2) mg/dL 09/08/22 Range/Units 08:34 RBC (3.80-5.40) m/uL Hgb (11.4-16.0) gm/dL Hct (34.0-46.0) % RDW (11.5-15.5) % Plt Count (150-450) k/uL Lymphocytes # (1.0-4.8) k/uL Fibrinogen (200-500) mg/dL ABG pO2 (83-108) mmHg ABG HCO3 (21-25) mmol/L ABG Total CO2 (19-24) mmol/L ABG O2 Saturation (94-97) % Sodium (137-145) mmol/L Chloride (98-107) mmol/L BUN (7-17) mg/dL Glucose (74-99) mg/dL POC Glucose (mg/dL) 164 H (70-110) mg/dL Calcium (8.4-10.2) mg/dL Assessment and Plan (1) Sepsis Current Visit: Yes Status: Acute Code(s): A41.9 - SEPSIS, UNSPECIFIED ORGANISM SNOMED Code(s): 62163261 Plan: 1patient was in the hospital with sepsis and septic shock initially concern for multidrug-resistant Pseudomonas UTI, patient also have a candidemia secondary to possible abdominal source and now with a VRE bacteremia source likely abdominal 2patient did have evidence of colonic perforation and peritonitis being managed medically as the patient considered to be high risk for any surgical procedure 3patient did have persistent VRE bacteremia and could be related to the m ultiple lines , patient will benefit from removal of those lines to control her bacteremia, patient did have a repeat blood cultures on 08/29/2022 those are negative so far 4-the patient clinical condition remains to be guarded because of her multiple comorbid condition however the patient did have resolution of her fever and repeat blood culture has been negative , and the patient white count has normalized 5- patient currently being treated with Zyvox Zerbex and Eraxis and monitor clinical course closely , at the bedside multiple questions concerns were answered Time with Patient: Less than 30
--- NOTE | 2022-09-08 14:10 | P.PN ---
Subjective Progress Note Date: 09/08/22 CHIEF COMPLAINT: Abdominal pain HISTORY OF PRESENT ILLNESS: Patient remains in the ICU and on mechanical ventilation. Patient had tracheostomy placed on 08/25/2022. Patient was unable to have PEG tube placed because light reflex was not visualized during EGD. Patient remains on TPN for nutrition support. Remains on vasopressors. Afebrile. WBC 8.3 hgb 7.4 plt 12 PHYSICAL EXAM: VITAL SIGNS: Reviewed GENERAL: On mechanical ventilation. NECK: Tracheostomy site clean dry and intact ABDOMEN: distended. ASSESSMENT: 1. Acute on chronic hypoxic respiratory failure status post tracheostomy placement 2. Severe protein calorie malnutrition PLAN: -TPN for nutrition support -Continue supportive care -Continue ICU management Physician Weight Trainer note has been reviewed by physician. Signing provider agrees with the documented findings, assessment, and plan of care. Objective - Vital Signs Vital signs: Vital Signs Temp 97.8 F 09/08/22 12:00 Pulse 112 H 09/08/22 14:00 Resp 32 H 09/08/22 14:00 BP 128/47 09/02/22 15:00 Pulse Ox 99 09/08/22 14:00 FiO2 40 09/08/22 11:49 Intake & Output 09/07/22 09/08/22 09/08/22 18:59 06:59 18:59 Intake Total 2012.821 1903.926 6248.852 Output Total 1885 1190 595 Balance 127.821 235.333 633.852 Weight 124.9 kg 124.9 kg Intake: IV 1434 1318 828 0.9% @ KVO 195 165 90 Anidulafungin 100 mg In 100 130 Sodium Chloride 0.9% 100 ml @ 84 mls/hr IVPB DAILY [facility] Rx#:[id number] Ceftolozane/Tazobactam 1. 200 100 100 5 gm In Sodium Chloride 0 .9% 100 ml @ 100 mls/hr IV Q8HR [facility] Rx#:[id number] Lacosamide IV 150 mg In 50 50 Sodium Chloride 0.9% 50 ml @ 100 mls/hr IVPB BID [facility] Rx#:[id number] Linezolid 600 mg In 300 300 Dextrose/Water 1 300ml. bag @ 150 mls/hr IVPB Q12H [facility] Rx#:[id number] Mvi, Adult No.4 with Vit 520 390 K 10 ml Trace (Conc-1Ml/ Dose) 1 ml Potassium Phosphate 9 mmol Sodium Acetate 30 meq Potassium Chloride 80 meq Magnesium Sulfate gm 1 gm Sodium Chloride 4Meq/ml Vial 100 meq Calcium Gluconate 3 gm In Amino Acids 5 %/ Dextrose 20 % 1,000 ml @ 65 mls/hr IV .BY DURATION [facility] Rx#:[id number] Normal Saline: Pressure 39 33 18 Bag Phenytoin Sodium Inj 300 50 50 mg In Sodium Chloride 0.9 % 50 ml @ 80 mls/hr IVPB Q12H [facility] Rx#:[id number] Potassium Chloride 20 meq 400 In Water For Injection 1 100ml.bag @ 50 mls/hr IVPB Q2H [facility] Rx#: [id number] levETIRAcetam IV 1,000 mg 100 100 100 In Saline 1 100ml.bag @ 400 mls/hr IVPB Q12HR [facility] Rx#:[id number] Intake, IV Titration 353.821 97.333 400.852 Amount Anidulafungin 100 mg In 130 Sodium Chloride 0.9% 100 ml @ 84 mls/hr IVPB DAILY [facility] Rx#:[id number] Furosemide 100 mg In 100 97.333 100 Sodium Chloride 0.9% 90 ml @ 10 MG/HR 10 mls/hr IV .Q10H [facility] Rx#: [id number] Norepinephrine 32 mg In 86.184 53.348 Sodium Chloride 0.9% 218 ml @ 0.5 MCG/KG/MIN 25. 547 mls/hr IV .Q9H48M [facility] Rx#:[id number] Vasopressin 60 unit In 167.637 117.504 Sodium Chloride 0.9% 150 ml @ 0.04 UNITS/MIN 6.12 mls/hr IV .Q24H [facility] Rx#: [id number] Tube Feeding 100 10 TPN/PPN 65 TPN 65 Other 60 Output: Urine 1585 1190 595 Stool 300 Other: Voiding Method Indwelling Catheter Indwelling Catheter Indwelling Catheter ABP, PAP, CO, CI - Last Documented Arterial Blood Pressure 104/45 - Labs CBC & Chem 7: 09/08/22 04:44 09/08/22 04:44 Labs: Abnormal Lab Results - Last 24 Hours (Table) 09/07/22 09/07/22 09/08/22 Range/Units 16:08 19:51 01:34 RBC (3.80-5.40) m/uL Hgb (11.4-16.0) gm/dL Hct (34.0-46.0) % RDW (11.5-15.5) % Plt Count (150-450) k/uL Lymphocytes # (1.0-4.8) k/uL Fibrinogen (200-500) mg/dL ABG pO2 (83-108) mmHg ABG HCO3 (21-25) mmol/L ABG Total CO2 (19-24) mmol/L ABG O2 Saturation (94-97) % Sodium (137-145) mmol/L Chloride (98-107) mmol/L BUN (7-17) mg/dL Glucose (74-99) mg/dL POC Glucose (mg/dL) 199 H 194 H 192 H (70-110) mg/dL Calcium (8.4-10.2) mg/dL Triglycerides (0.00-149.00) mg/dL 09/08/22 09/08/22 09/08/22 Range/Units 04:41 04:44 04:44 RBC 2.67 L (3.80-5.40) m/uL Hgb 7.4 L (11.4-16.0) gm/dL Hct 23.3 L (34.0-46.0) % RDW 22.6 H (11.5-15.5) % Plt Count 12 L* (150-450) k/uL Lymphocytes # 0.5 L (1.0-4.8) k/uL Fibrinogen (200-500) mg/dL ABG pO2 (83-108) mmHg ABG HCO3 (21-25) mmol/L ABG Total CO2 (19-24) mmol/L ABG O2 Saturation (94-97) % Sodium 135 L (137-145) mmol/L Chloride 97 L (98-107) mmol/L BUN 97 H (7-17) mg/dL Glucose 170 H (74-99) mg/dL POC Glucose (mg/dL) 180 H (70-110) mg/dL Calcium 8.3 L (8.4-10.2) mg/dL Triglycerides 197.00 H (0.00-149.00) mg/dL 09/08/22 09/08/22 09/08/22 Range/Units 06:02 06:48 08:34 RBC (3.80-5.40) m/uL Hgb (11.4-16.0) gm/dL Hct (34.0-46.0) % RDW (11.5-15.5) % Plt Count (150-450) k/uL Lymphocytes # (1.0-4.8) k/uL Fibrinogen 573 H (200-500) mg/dL ABG pO2 133 H (83-108) mmHg ABG HCO3 30 H (21-25) mmol/L ABG Total CO2 32 H (19-24) mmol/L ABG O2 Saturation 99.4 H (94-97) % Sodium (137-145) mmol/L Chloride (98-107) mmol/L BUN (7-17) mg/dL Glucose (74-99) mg/dL POC Glucose (mg/dL) 164 H (70-110) mg/dL Calcium (8.4-10.2) mg/dL Triglycerides (0.00-149.00) mg/dL 09/08/22 Range/Units 12:05 RBC (3.80-5.40) m/uL Hgb (11.4-16.0) gm/dL Hct (34.0-46.0) % RDW (11.5-15.5) % Plt Count (150-450) k/uL Lymphocytes # (1.0-4.8) k/uL Fibrinogen (200-500) mg/dL ABG pO2 (83-108) mmHg ABG HCO3 (21-25) mmol/L ABG Total CO2 (19-24) mmol/L ABG O2 Saturation (94-97) % Sodium (137-145) mmol/L Chloride (98-107) mmol/L BUN (7-17) mg/dL Glucose (74-99) mg/dL POC Glucose (mg/dL) 137 H (70-110) mg/dL Calcium (8.4-10.2) mg/dL Triglycerides (0.00-149.00) mg/dL
[2022-09-08] MEDS: VASOPRESSIN 60 UNIT in SODIUM CHLORIDE 0.9% 150 ML IV SCH (14:11)
[2022-09-08 16:14] LABS: Glucose,Whole Blood 48 mg/dL (70-110)
[2022-09-08 16:14] LABS: Glucose,Whole Blood 48 mg/dL (70-110)
[2022-09-08] MEDS: DEXTROSE 50% SYRINGE 50 ML IVP PRN (16:19)
--- NOTE | 2022-09-08 16:34 | P.CONS ---
History of Present Illness - Reason for Consult Consult date: 09/08/22 thrombocytopenia Requesting physician: Negrito Palomares - Chief Complaint pneumonia - History of Present Illness The patient is a 87-year-old female. We were consulted for thrombocytopenia. Patient has been hospitalized for more than one month and admission has been complicated by urosepsis, multiple positive blood cultures and sputum cultures. She is on a mechanical ventilator for septic shock and on vasopressors. The patient is currently on a combination of Zerbaxa, eraxis, and Zyvox. Patient is unresponsive. She was seen by neurology, and most recent CT scan of the brain that was done on 09/03/2022 showing evidence of cerebral atrophy without any acute changes or evidence of intracranial hemorrhages. 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 There is also background slowing suggestive of severe encephalopathy. Chest x-ray on 09/05/22 showed persistent bilateral infiltrates and pleural effusions. Repeat blood culture that were done on 08/29/2022 have shown no evidence of bacteria. Hemoglobin 7.4 today, has been consistently between 7-8, receiving last transfusion on 08/29. Platelet counts have been stable throughout admission but began to drop on 09/02 and have progressively been decreasing. Platelets 12,000 today. No reported blood in stool or urine. DIC workup negative. Pt has not been heparinized during admission. No known history of blood disorders. Review of Systems 10 point ROS is negative except as stated in HPI Past Medical History Past Medical History: Coronary Artery Disease (CAD), Chest Pain / Angina, Heart Failure, COPD, CVA/TIA, Diabetes Mellitus, Hyperlipidemia, Hypertension, Myocardial Infarction (AK), Osteoarthritis (OA), Renal Disease, Sleep Ap fili/CPAP/BIPAP, Thyroid Disorder Additional Past Medical History / Comment(s): Pt recently admitted to [facility] on 05/21/22/ gravely disabled, UTI, acquired hypothyroidism, exacerbation copd and chf, anemia. Other hx: IDDM type II, neuropathy bilateral hands/feet, CKD stage III, urinary retention, UTIs, anemia, home oxygen use ATC, bilateral lower extremity edema, current pressure ulcer decub per pt, gastritis, hiatal hernia, aortic stenosis, hemorrhoids. 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; 08/19/22 MRSA; 09/06/17-ESBL MDRO Source:: Blood- VRE; Sputum-MRSA; Urine-ESBL Past Surgical History: Back Surgery, Heart Catheterization, Heart Catheterization With Stent, Joint Replacement, Orthopedic Surgery Additional Past Surgical History / Comment(s): Lumbar laminectomy decompression fusion L3-4 and L5-S1 with cell saver, lumbar instrumentation removal L4-5, L4- L5 laminectomy, BILATERAL KNEE REPLACEMENTS, ORIF RIGHT ANKLE, CERVICAL FUSION, bilateral rotator cuff repair, bilateral wrist carpal tunnel releases, pain procedures, left breast lumpectomy-benign, bilateral varicose vein stripping, bilateral cataracts, heart cath with 5 stents august 2021, egd/colonoscopy 04/13/22 Past Anesthesia/Blood Transfusion Reactions: No Reported Reaction Additional Past Anesthesia/Blood Transfusion Reaction / Comm: blood transfusion 04/01/[address] estrella's notes last hospital stay Date of Last Stent Placement:: 08/30/2021 Past Psychological History: No Psychological Hx Reported Additional Psychological History / Comment(s): Pt resides with her spouse. She has home care thru [facility]. She states she is now wheelchair bound. She has home oxygen. She receives some services thru [facility]. Smoking Status: Former smoker Past Alcohol Use History: None Reported Additional Past Alcohol Use History / Comment(s): Pt started smoking in 7 and quit in 1974. She was a 1.5 ppd smoker. Past Drug Use History: None Reported - Past Family History Father Family Medical History: Myocardial Infarction (AK) Additional Family Medical History / Comment(s): Father at 40 of a AK. Mother Family Medical History: CVA/TIA Additional Family Medical History / Comment(s): Mother had a CVA Medications and Allergies Home Medications Medication Instructions Recorded Confirmed Type Nitroglycerin Sl Tabs [Nitrostat] 0.4 mg SL Q5M PRN 07/20/15 08/08/22 History Atorvastatin Calcium [Lipitor] 40 mg PO HS #1 tab 08/04/15 08/08/22 Rx Fluticasone/Umeclidin/Vilanter 1 puff INHALATION RT-HS 10/15/21 08/08/22 History [Trelegy Ellipta 100-62.5-25] Apixaban [Eliquis] 2.5 mg PO BID 12/09/21 08/08/22 History Amitriptyline HCl [Elavil] 100 mg PO HS 03/13/22 08/08/22 History Cyanocobalamin (Vitamin B-12) 1,000 mcg PO DAILY 03/13/22 08/08/22 History [Vitamin B-12] Gabapentin 300 mg PO TID #9 cap 04/04/22 08/08/22 Rx Furosemide [Lasix] 40 mg PO DAILY tab 04/13/22 08/08/22 Rx Amiodarone [Cordarone] 200 mg PO DAILY #90 tab 04/14/22 08/08/22 Rx Metoprolol Tartrate [Lopressor] 25 mg PO BID tab 04/14/22 08/08/22 Rx HYDROcodone/APAP 5-325MG [[place] 1 tab PO Q6H PRN 05/21/22 08/08/22 History 5-325] Insulin Lispro [humaLOG Kwikpen] See Protocol SQ ACHS PRN 05/21/22 08/08/22 History Calcium Carbonate [Tums] 1,000 mg PO Q6H PRN 08/08/22 08/08/22 History Docusate [Colace] 100 mg PO BID 08/08/22 08/08/22 History Ipratropium-Albuterol Nebulize 3 ml INHALATION RT-QID 08/08/22 08/08/22 History [Duoneb 0.5 mg-3 mg/3 ml Soln] Levothyroxine Sodium [Synthroid] 75 mcg PO DAILY 08/08/22 08/08/22 History Psyllium Husk 100% [Metamucil 6 gm PO DAILY 08/08/22 08/08/22 History Packet] Tamsulosin [Flomax] 0.4 mg PO DAILY 08/08/22 08/08/22 History metFORMIN HCL 1,000 mg PO BID 08/08/22 08/08/22 History Allergies Allergy/AdvReac Type Severity Reaction Status Date / Time Penicillins Allergy Rash/Hives Verified 08/08/22 17:14 Physical Exam Vitals: Vital Signs Temp Pulse Resp Pulse Ox FiO2 09/08/22 14:00 112 H 32 H 99 09/08/22 13:00 112 H 30 H 99 09/08/22 12:02 111 H 30 H 09/08/22 12:00 97.8 F 126 H 30 H 99 09/08/22 11:52 115 H 30 H 09/08/22 11:49 40 09/08/22 11:00 124 H 30 H 09/08/22 10:00 111 H 33 H 99 09/08/22 09:00 114 H 29 H 100 09/08/22 08:51 100 40 09/08/22 08:50 114 H 30 H 09/08/22 08:38 101 H 30 H 09/08/22 08:35 40 09/08/22 08:00 97.8 F 112 H 30 H 100 40 09/08/22 07:00 110 H 30 H 100 09/08/22 06:00 101 H 31 H 100 09/08/22 05:00 102 H 30 H 100 09/08/22 04:00 111 H 31 H 99 09/08/22 03:34 40 09/08/22 03:00 114 H 30 H 100 09/08/22 02:00 108 H 31 H 100 09/08/22 01:00 112 H 30 H 100 09/08/22 00:47 40 09/08/22 00:00 97.8 F 102 H 30 H 100 40 09/07/22 23:00 107 H 30 H 100 09/07/22 22:13 106 H 30 H 100 09/07/22 22:00 113 H 30 H 100 09/07/22 21:16 99 09/07/22 21:08 99 09/07/22 21:00 105 H 29 H 100 09/07/22 20:48 98 09/07/22 20:44 40 09/07/22 20:00 97.5 F L 106 H 31 H 100 09/07/22 19:00 101 H 30 H 99 40 09/07/22 18:45 112 H 100 09/07/22 18:30 113 H 100 09/07/22 18:15 102 H 30 H 100 09/07/22 18:00 116 H 30 H 100 40 09/07/22 17:45 106 H 30 H 100 09/07/22 17:30 108 H 30 H 100 09/07/22 17:15 114 H 30 H 100 09/07/22 17:00 103 H 30 H 100 40 09/07/22 16:45 104 H 30 H 100 09/07/22 16:30 107 H 30 H 100 09/07/22 16:19 102 H 09/07/22 16:15 101 H 30 H 100 09/07/22 16:09 103 H 09/07/22 16:00 96.7 F L 96 30 H 100 40 09/07/22 15:45 98 30 H 100 09/07/22 15:30 92 30 H Intake and Output 09/08/22 09/08/22 09/08/22 06:59 14:59 22:59 Intake Total 1124 1345.852 Output Total 865 720 Balance 259 625.852 Intake: IV 1114 882 0.9% @ KVO 120 135 Anidulafungin 100 mg In 130 Sodium Chloride 0.9% 100 ml @ 84 mls/hr IVPB DAILY [facility] Rx#:[id number] Ceftolozane/Tazobactam 1. 100 100 5 gm In Sodium Chloride 0 .9% 100 ml @ 100 mls/hr IV Q8HR [facility] Rx#:[id number] Linezolid 600 mg In 300 Dextrose/Water 1 300ml. bag @ 150 mls/hr IVPB Q12H [facility] Rx#:[id number] Mvi, Adult No.4 with Vit 520 390 K 10 ml Trace (Conc-1Ml/ Dose) 1 ml Potassium Phosphate 9 mmol Sodium Acetate 30 meq Potassium Chloride 80 meq Magnesium Sulfate gm 1 gm Sodium Chloride 4Meq/ml Vial 100 meq Calcium Gluconate 3 gm In Amino Acids 5 %/ Dextrose 20 % 1,000 ml @ 65 mls/hr IV .BY DURATION [facility] Rx#:[id number] Normal Saline: Pressure 24 27 Bag Phenytoin Sodium Inj 300 50 mg In Sodium Chloride 0.9 % 50 ml @ 80 mls/hr IVPB Q12H [facility] Rx#:[id number] levETIRAcetam IV 1,000 mg 100 In Saline 1 100ml.bag @ 400 mls/hr IVPB Q12HR [facility] Rx#:[id number] Intake, IV Titration 463.852 Amount Anidulafungin 100 mg In 130 Sodium Chloride 0.9% 100 ml @ 84 mls/hr IVPB DAILY [facility] Rx#:[id number] Fat Emulsion 20% 250 ml 63 In Empty Bag 1 bag @ 21 mls/hr IV TuFr [facility] Rx#: [id number] Furosemide 100 mg In 100 Sodium Chloride 0.9% 90 ml @ 10 MG/HR 10 mls/hr IV .Q10H [facility] Rx#: [id number] Norepinephrine 32 mg In 53.348 Sodium Chloride 0.9% 218 ml @ 0.5 MCG/KG/MIN 25. 547 mls/hr IV .Q9H48M [facility] Rx#:[id number] Vasopressin 60 unit In 117.504 Sodium Chloride 0.9% 150 ml @ 0.04 UNITS/MIN 6.12 mls/hr IV .Q24H [facility] Rx#: [id number] Tube Feeding 10 Output: Urine 865 720 Other: Voiding Method Indwelling Catheter Indwelling Catheter Weight 124.9 kg 124.9 kg ABP, PAP, CO, CI - Last 8 Hours Arterial Blood Pressure 104/45 Arterial Blood Pressure 105/46 Arterial Blood Pressure 107/45 Arterial Blood Pressure 111/47 Arterial Blood Pressure 110/43 Arterial Blood Pressure 106/47 - Constitutional unresponsive General appearance: no acute distress, obese - Respiratory Respiratory: bilateral: rhonchi, wheezing - Cardiovascular Rhythm: irregularly irregular Heart sounds: normal: S1, S2 Abnormal Heart Sounds: no systolic murmur, no diastolic murmur leg Peripheral Edema: bilateral: 4+, Pitting - Gastrointestinal General gastrointestinal: normal bowel sounds, soft - Integumentary cyanosis noted to bilateral distal toes Integumentary: pale - Neurologic unresponsive Results CBC & Chem 7: 09/08/22 04:44 09/08/22 04:44 Labs: Abnormal Lab Results - Last 24 Hours (Table) 09/07/22 09/07/22 09/08/22 Range/Units 16:08 19:51 01:34 RBC (3.80-5.40) m/uL Hgb (11.4-16.0) gm/dL Hct (34.0-46.0) % RDW (11.5-15.5) % Plt Count (150-450) k/uL Lymphocytes # (1.0-4.8) k/uL Fibrinogen (200-500) mg/dL ABG pO2 (83-108) mmHg ABG HCO3 (21-25) mmol/L ABG Total CO2 (19-24) mmol/L ABG O2 Saturation (94-97) % Sodium (137-145) mmol/L Chloride (98-107) mmol/L BUN (7-17) mg/dL Glucose (74-99) mg/dL POC Glucose (mg/dL) 199 H 194 H 192 H (70-110) mg/dL Calcium (8.4-10.2) mg/dL Triglycerides (0.00-149.00) mg/dL 09/08/22 09/08/22 09/08/22 Range/Units 04:41 04:44 04:44 RBC 2.67 L (3.80-5.40) m/uL Hgb 7.4 L (11.4-16.0) gm/dL Hct 23.3 L (34.0-46.0) % RDW 22.6 H (11.5-15.5) % Plt Count 12 L* (150-450) k/uL Lymphocytes # 0.5 L (1.0-4.8) k/uL Fibrinogen (200-500) mg/dL ABG pO2 (83-108) mmHg ABG HCO3 (21-25) mmol/L ABG Total CO2 (19-24) mmol/L ABG O2 Saturation (94-97) % Sodium 135 L (137-145) mmol/L Chloride 97 L (98-107) mmol/L BUN 97 H (7-17) mg/dL Glucose 170 H (74-99) mg/dL POC Glucose (mg/dL) 180 H (70-110) mg/dL Calcium 8.3 L (8.4-10.2) mg/dL Triglycerides 197.00 H (0.00-149.00) mg/dL 09/08/22 09/08/22 09/08/22 Range/Units 06:02 06:48 08:34 RBC (3.80-5.40) m/uL Hgb (11.4-16.0) gm/dL Hct (34.0-46.0) % RDW (11.5-15.5) % Plt Count (150-450) k/uL Lymphocytes # (1.0-4.8) k/uL Fibrinogen 573 H (200-500) mg/dL ABG pO2 133 H (83-108) mmHg ABG HCO3 30 H (21-25) mmol/L ABG Total CO2 32 H (19-24) mmol/L ABG O2 Saturation 99.4 H (94-97) % Sodium (137-145) mmol/L Chloride (98-107) mmol/L BUN (7-17) mg/dL Glucose (74-99) mg/dL POC Glucose (mg/dL) 164 H (70-110) mg/dL Calcium (8.4-10.2) mg/dL Triglycerides (0.00-149.00) mg/dL 09/08/22 Range/Units 12:05 RBC (3.80-5.40) m/uL Hgb (11.4-16.0) gm/dL Hct (34.0-46.0) % RDW (11.5-15.5) % Plt Count (150-450) k/uL Lymphocytes # (1.0-4.8) k/uL Fibrinogen (200-500) mg/dL ABG pO2 (83-108) mmHg ABG HCO3 (21-25) mmol/L ABG Total CO2 (19-24) mmol/L ABG O2 Saturation (94-97) % Sodium (137-145) mmol/L Chloride (98-107) mmol/L BUN (7-17) mg/dL Glucose (74-99) mg/dL POC Glucose (mg/dL) 137 H (70-110) mg/dL Calcium (8.4-10.2) mg/dL Triglycerides (0.00-149.00) mg/dL Comments: EEG reviewed Chest x-ray: report reviewed CT Scan - head: report reviewed Assessment and Plan (1) Thrombocytopenia Current Visit: Yes Status: Acute Priority: High Code(s): D69.6 - THROMBOC YTOPENIA, UNSPECIFIED SNOMED Code(s): 909946825 (2) Anemia Current Visit: Yes Status: Acute Priority: High Code(s): D64.9 - ANEMIA, UNSPECIFIED SNOMED Code(s): 288374402 Plan: Thrombocytopenia: -Platelet counts have been stable throughout admission but began to drop on 09/02 and have progressively been decreasing. Platelets 12,000 today. -DIC workup negative. -Per review of MAR, no heparin administered during admission, more over pattern of significant drop in platelets is not consistent with HIT. -HIV and acute hepatitis panel ordered -Of note patient was started on Zerbaxa on 3/7 as platelet counts began to decrease. Thrombocytopenia is likely r/t acute infectious processes and inflammation, possibly exacerbated by use of multiple antimicrobials -Please transfuse for platelets less than 10,000 or if symptomatic -CBC daily. Will continue to monitor Anemia: -Hemoglobin 7.4 today, has been consistently between 7-8, receiving last transfusion on 08/29. -No reported bleeding in stool or urine -Likely anemia of inflammation secondary to multiple infectious processes -Anemia workup ordered -CBC daily -Please transfuse for hemoglobin less than 7 or if symptomatic
[2022-09-08 16:45] LABS: Glucose,Whole Blood 86 mg/dL (70-110)
--- NOTE | 2022-09-08 17:11 | P.PN ---
Subjective Progress Note Date: 09/08/22 09/08/2022: Patient was seen for a follow-up. Patient's and patient's daughter were both present today. I had an extremely prolonged discussion for almost over 40 minutes discussing about patient's condition, prognosis. Patient's continues to believe that there is hope she will come around and wake up. Patient currently on norepinephrine 0.14 mcg/kg/m infusion. 09/07/2022: Patient clinically unchanged. Patient's daughter was present today. Some concern raised about repeating EEG. Patient is having some periodic eye twitching, and chin twitching, which is concerning for seizures. 09/06/2022: Patient was seen for a follow-up. Patient's daughter was present today. Patient appears more edematous, has developed a couple 1-2 inch big blisters on her lower leg, with serous fluid inside. Patient continues to be on Levophed 0.5 mcg/kg/m and also on norepinephrine 0.04 units per minute. Patient's fingertips hypoxic much worse particularly in the right with significant redness at the borders, with demarcation. The left fingertips appears slightly better. Does have gotten worse. Patient has developed blisters. 09/05/2022: Patient was seen for a follow-up. Patient's and their daughter was present today. Patient is essentially unchanged. Patient's believes that she is responding to him. Patient sometimes has a slight twitch of the chin or sometimes twitches of her eyes, which he believes is response. He tried multiple times to get a response from the patient in front of me, but there was no response at all. Some twitches were reflexive, could be epileptic as well. 09/04/2022: Patient was seen for a follow-up. Patient's daughter was present. Patient was seen by Dr. Edouard Peres in the previous 7 days. Please refer to his notes for details. Patient at present on Levophed 0.12 g, and vasopressin 0.04 g. Patient is of Versed and Ativan since 08/30/2022. There is no obvious physical seizure activity. Patient had numerous EEGs, which continues to show subclinical status. Patient's family believes that she is responding, as her chin moved slightly and she is slightly moves her eyes with her lids closed. She may still slightly open her eyes, which appears reflexive rather than involving treat appears. No seizure-like activity noticed at this time either. Patient continues to have severe blackening of the fingertips and the toes, and some sloughing of the skin of the toes. 08/27/2022: Patient was seen for a follow-up. Patient continues to be significantly encephalopathic. No obvious shoulder twitching on the right side was observed. Patient currently on Versed drip 7 mg per hour. Also on other medications as mentioned from yesterday. Patient has tracheostomy. Awaiting PEG placement. Patient currently on Levophed at 36 mcg/m(0.25 g microgram per minute), and vasopressin 0.02 units per minute. 08/26/2022: Patient was seen for a follow-up. Patient is clinically unchanged. However the seizure-like activity involving right shoulder has completely reso lved. Patient currently on Versed 7 mg/h drip. Also on amiodarone, norepinephrine 0.47 mcg/mg per hour, vasopressin 0.04 units per minute. Also on bicarbonate drip. Patient has not had PEG tube placed yet. Patient's believes that when the PEG tube is placed, she will get nutrition and she will get better. Also discussed with patient's daughter and her , who was sitting in the waiting area. Patient's also believes the seizures are related to issues with the lower back region. 08/25/2022: Patient was seen for a follow-up. Patient's and patient's daughter were both present. Patient continues to be comatose. She has intermittent rhythmic twitching of the right shoulder. Patient is already on high dose Keppra, Vimpat adjusted to her renal functions, and Versed drip. Patient already has received Dilantin 1 g IV PB and she is still twitching in the right shoulder. Dilantin level came as 4.5. Patient will receive another loading dose of Dilantin 1 g. Target Dilantin level 12-20. Patient's toes are getting more dusky. Patient has developed some blisters, but that happened before she received Dilantin, therefore not related to Dilantin ALLERGY. Patient has generalized anasarca. 08/24/2022: Patient was seen for a follow-up. Patient is undergoing EEG at this time. Patient continues to have PLEDS. Patient was given Ativan 2 mg without much improvement, then repeated at another 2 mg Ativan. Patient subsequently received Versed 5 mg IV push without improvement, started on Versed drip 5 mg per hour. Patient states on pressors with vasopressin and Levophed. Patient continues to be comatose. Occasional twitching of the right shoulder noticed. I had discussed case with Dr. Hagen yesterday after he reported abnormal prolonged EEG about transfer patient to [facility], but he mentioned that beds were not available. 08/23/2022: Patient was seen for a follow-up. Patient is intubated, not on any sedation. She is on full pressors with Levophed and vasopressin. Also on 3 antibiotics, anti-seizure medications including Keppra and Vimpat. Patient had sporadic seizure-like activity with facial twitching. No definite arm twitching noted. Episode lasted for about 30 minutes. At present there is no twitching noticeable. Patient's and grandchildren were present today. 08/22/2022: Patient was seen for a follow-up. Patient's daughter was also present today. Patient recently had temperature of 100.3. About an hour prior to spiking temperature, patient had some facial twitching, with jaw opening and closing, that lasted for half an hour. No upper extremity movement was noted at that time. Patient continues to be on Keppra 750 mg twice a day. Patient continues to be on high-dose pressors. Patient at present is no code, but full medical treatment. 08/21/2022: Patient initially seen by Dr. Edouard Peres. Please refer to his note for details. Patient is an 87-year-old female with altered mental status. Patient has septic encephalopathy. Patient had a seizure-like activity yesterday at 1:15 PM with head jerking and left arm jerking. Patient was given Ativan 4 mg, and the seizure-like stopped. Patient was given a loading dose of Keppra 1000 mg IV and then maintained on 500 mg twice a day. Patient had again seizure-like activity at 3 AM lasted for 45 minutes and then 5 AM and patient was given another loading dose of 500 mg Keppra. Nurse called me today at around 7:30 AM. It lasted for 20-30 minutes. Patient was again given Valium 4 mg in the seizure- like activity resolved. Patient was started on Vimpat 100 mg twice a day IV PB. EEG was performed today, which was abnormal sleep EEG due to background slowing of moderate degree. Some sharply contoured waves were seen in the left parietal region. No clear-cut epileptiform activity was seen. Objective - Vital Signs Vital signs: Vital Signs Temp 98.1 F 09/08/22 16:00 Pulse 114 H 09/08/22 16:00 Resp 30 H 09/08/22 16:00 BP 128/47 09/02/22 15:00 Pulse Ox 100 09/08/22 16:00 FiO2 30 09/08/22 16:00 Intake & Output 09/07/22 09/08/22 09/08/22 18:59 06:59 18:59 Intake Total 2012.821 1466.458 8881.240 Output Total 1885 1190 870 Balance 127.821 235.333 525.240 Weight 124.9 kg 124.9 kg Intake: IV 1434 1318 918 0.9% @ KVO 195 165 165 Anidulafungin 100 mg In 100 130 Sodium Chloride 0.9% 100 ml @ 84 mls/hr IVPB DAILY [facility] Rx#:[id number] Ceftolozane/Tazobactam 1. 200 100 100 5 gm In Sodium Chloride 0 .9% 100 ml @ 100 mls/hr IV Q8HR [facility] Rx#:[id number] Lacosamide IV 150 mg In 50 50 Sodium Chloride 0.9% 50 ml @ 100 mls/hr IVPB BID [facility] Rx#:[id number] Linezolid 600 mg In 300 300 Dextrose/Water 1 300ml. bag @ 150 mls/hr IVPB Q12H [facility] Rx#:[id number] Mvi, Adult No.4 with Vit 520 390 K 10 ml Trace (Conc-1Ml/ Dose) 1 ml Potassium Phosphate 9 mmol Sodium Acetate 30 meq Potassium Chloride 80 meq Magnesium Sulfate gm 1 gm Sodium Chloride 4Meq/ml Vial 100 meq Calcium Gluconate 3 gm In Amino Acids 5 %/ Dextrose 20 % 1,000 ml @ 65 mls/hr IV .BY DURATION [facility] Rx#:[id number] Normal Saline: Pressure 39 33 33 Bag Phenytoin Sodium Inj 300 50 50 mg In Sodium Chloride 0.9 % 50 ml @ 80 mls/hr IVPB Q12H [facility] Rx#:[id number] Potassium Chloride 20 meq 400 In Water For Injection 1 100ml.bag @ 50 mls/hr IVPB Q2H [facility] Rx#: [id number] levETIRAcetam IV 1,000 mg 100 100 100 In Saline 1 100ml.bag @ 400 mls/hr IVPB Q12HR [facility] Rx#:[id number] Intake, IV Titration 353.821 97.333 477.240 Amount Anidulafungin 100 mg In 130 Sodium Chloride 0.9% 100 ml @ 84 mls/hr IVPB DAILY [facility] Rx#:[id number] Fat Emulsion 20% 250 ml 63 In Empty Bag 1 bag @ 21 mls/hr IV TuFr [facility] Rx#: [id number] Furosemide 100 mg In 100 97.333 100 Sodium Chloride 0.9% 90 ml @ 10 MG/HR 10 mls/hr IV .Q10H [facility] Rx#: [id number] Norepinephrine 32 mg In 86.184 66.736 Sodium Chloride 0.9% 218 ml @ 0.5 MCG/KG/MIN 25. 547 mls/hr IV .Q9H48M [facility] Rx#:[id number] Vasopressin 60 unit In 167.637 117.504 Sodium Chloride 0.9% 150 ml @ 0.04 UNITS/MIN 6.12 mls/hr IV .Q24H [facility] Rx#: [id number] Tube Feeding 100 10 TPN/PPN 65 TPN 65 Other 60 Output: Urine 1585 1190 870 Stool 300 Other: Voiding Method Indwelling Catheter Indwelling Catheter Indwelling Catheter ABP, PAP, CO, CI - Last Documented Arterial Blood Pressure 98/42 - Exam Patient is an elderly female, who is comatose with GCS of 3. Patient is not on any sedation. Patient is off Ativan/Versed since 08/30/2022. Patient continues to be on pressors. Patient does not respond to painful stimuli or calling out loudly. No focal seizure noted involving right shoulder. Patient appears to have less frequent twitches of her eyes and sometimes of the chin as compared to yesterday. It appears seizure phenomenon. Pupils are equal, round and reacting bilaterally. Oculocephalics are absent, corneals absent. Patient sometimes minimally opens her eyes, but the gaze is more in front. Patient has extremely weak gag if at all. No cough. Reflexes are absent. Patient has significant peripheral edema. Patient's fingers and toes are dusky, cyanotic, now turning black, right side worse than left. - Labs CBC & Chem 7: 09/08/22 04:44 09/08/22 04:44 Labs: Abnormal Lab Results - Last 24 Hours (Table) 09/07/22 09/08/22 09/08/22 Range/Units 19:51 01:34 04:41 RBC (3.80-5.40) m/uL Hgb (11.4-16.0) gm/dL Hct (34.0-46.0) % RDW (11.5-15.5) % Plt Count (150-450) k/uL Lymphocytes # (1.0-4.8) k/uL Fibrinogen (200-500) mg/dL ABG pO2 (83-108) mmHg ABG HCO3 (21-25) mmol/L ABG Total CO2 (19-24) mmol/L ABG O2 Saturation (94-97) % Sodium (137-145) mmol/L Chloride (98-107) mmol/L BUN (7-17) mg/dL Glucose (74-99) mg/dL POC Glucose (mg/dL) 194 H 192 H 180 H (70-110) mg/dL Calcium (8.4-10.2) mg/dL Triglycerides (0.00-149.00) mg/dL 09/08/22 09/08/22 09/08/22 Range/Units 04:44 04:44 06:02 RBC 2.67 L (3.80-5.40) m/uL Hgb 7.4 L (11.4-16.0) gm/dL Hct 23.3 L (34.0-46.0) % RDW 22.6 H (11.5-15.5) % Plt Count 12 L* (150-450) k/uL Lymphocytes # 0.5 L (1.0-4.8) k/uL Fibrinogen 573 H (200-500) mg/dL ABG pO2 (83-108) mmHg ABG HCO3 (21-25) mmol/L ABG Total CO2 (19-24) mmol/L ABG O2 Saturation (94-97) % Sodium 135 L (137-145) mmol/L Chloride 97 L (98-107) mmol/L BUN 97 H (7-17) mg/dL Glucose 170 H (74-99) mg/dL POC Glucose (mg/dL) (70-110) mg/dL Calcium 8.3 L (8.4-10.2) mg/dL Triglycerides 197.00 H (0.00-149.00) mg/dL 09/08/22 09/08/22 09/08/22 Range/Units 06:48 08:34 12:05 RBC (3.80-5.40) m/uL Hgb (11.4-16.0) gm/dL Hct (34.0-46.0) % RDW (11.5-15.5) % Plt Count (150-450) k/uL Lymphocytes # (1.0-4.8) k/uL Fibrinogen (200-500) mg/dL ABG pO2 133 H (83-108) mmHg ABG HCO3 30 H (21-25) mmol/L ABG Total CO2 32 H (19-24) mmol/L ABG O2 Saturation 99.4 H (94-97) % Sodium (137-145) mmol/L Chloride (98-107) mmol/L BUN (7-17) mg/dL Glucose (74-99) mg/dL POC Glucose (mg/dL) 164 H 137 H (70-110) mg/dL Calcium (8.4-10.2) mg/dL Triglycerides (0.00-149.00) mg/dL 09/08/22 09/08/22 Range/Units 16:12 16:13 RBC (3.80-5.40) m/uL Hgb (11.4-16.0) gm/dL Hct (34.0-46.0) % RDW (11.5-15.5) % Plt Count (150-450) k/uL Lymphocytes # (1.0-4.8) k/uL Fibrinogen (200-500) mg/dL ABG pO2 (83-108) mmHg ABG HCO3 (21-25) mmol/L ABG Total CO2 (19-24) mmol/L ABG O2 Saturation (94-97) % Sodium (137-145) mmol/L Chloride (98-107) mmol/L BUN (7-17) mg/dL Glucose (74-99) mg/dL POC Glucose (mg/dL) 48 L 48 L (70-110) mg/dL Calcium (8.4-10.2) mg/dL Triglycerides (0.00-149.00) mg/dL Assessment and Plan Assessment: * Electographic partial status epilepticus, severe, totally medically intractable, has been having seizures since at least 08/20/2022 (clinically and unsure if patient was having subclinical seizure prior to that). On keppra, Vimpat and Dilantin. Also has tried IV versed and IV ativan, propofol without improvement. IV sedation has been off since 08/30/22. * Altered mental status multifactorial as mentioned below. Partial status, septic encephalopathy, electrolyte imbalance, renal failure, sepsis, and hepatic encephalopathy, cannot rule out intracranial infection. * Acute thrombocytopenia, with platelets of 12,000 * Perforated viscus with pneumoperitoneum. * Septicemia, with leukocytosis and blood culture persistently positive with enterococcus faecium. Blood cultures positive as of 08/23/2022. White cells back to normal. * Hepatic encephalopathy with initial elevated ammonia 214, resolved. * Septic shock requiring high-dose pressors and seems has urinary tract infection with urine culture positive for Enterococcus faecalis and Pseudomonas aeruginosa as well as systemic candidiasis Atrial fibrillation on eliquis (which has hx of afib) , currently on hold. Acute on chronic hypoxemic respiratory failure secondary to diastolic congestive heart failure requiring intubation mechanical ventilation Acute on chronic kidney disease History of TIAs/stroke History of coronary artery disease with stent Hypertension Hyperlipidemia Diabetes mellitus Anemia Hypocalcemia, resolved Plan: * Patient probably continues to have some seizure activity with eye twitching sporadically and chin twitch. Her previous EEGs continues to show subclinical partial status. Patient is off Versed and Ativan drip. She continues to be on 3 antiepileptic medications as mentioned below. Patient's daughter be lieves including her dad, that patient is showing some meaningful response, which I doubt. Family does not want any more EEGs at this time. They're comfortable as long as patient is not exhibiting overt seizure activity. Patient has occasional twitch of the chin, or the eye, which could be still possibly ictal phenomenon. * Patient already on high dose Vimpat 150 mg twice a day, Keppra 1000 mg twice a day (both of them adjusted for current renal functions) and Dilantin 300 mg twice a day. Dilantin level was checked 8.8 however her albumin is very low 1.8. Therefore adjusted Dilantin level is 14.8 which is completely therapeutic. Keppra level 68.9 (3-60). Cannot give Depakote because of hyperammonemia. * Continue Ativan 1-2 mg every 4 hours when necessary seizure. * Prolonged 2.5 hours EEG on 08/24/2022 was abnormal with evidence of runs of 1 Hz LPDs plus there was lateralized periodic discharges, sharp and slow and poly-sharp and slow waves over the left parietal region with spread more anteriorly. There are also some discharges semi-periodic LPDs over the right posterior quadrants. Exact cause remains uncertain. * Repeat CT head 09/03/2022 revealed cerebral atrophy. No acute intracranial abnormality. I personally reviewed CT head, and agreed no acute process. * ID is also on board. Patient currently on Eraxis, Zerbaxa, Zyvox. Per ID, patient is already covered well for meningitis. * Patient's initial Ammonia was 214. Most recent ammonia level 20 on 09/04/2022. Patient on lactulose. * CT abdomen revealed possibility of perforated viscus. Surgery on board. Patient was considered not a candidate for surgery because of hemodynamic instability. * Patient is still on pressors. Patient is showing blackening of the digits of her hands and feet. * Hypocalcemia, resolved. * We'll defer the rest of medical management to primary and ICU team * Patient's and daughter not looking for EEG at this time. Patient has been very concerned about thrombocytopenia, and wants to talk to the preparation plant repairer. Patient's is still thinking patient will improve and wake up. * I spent 35 minutes in counseling. Time with Patient: Greater than 30
--- NOTE | 2022-09-08 18:01 | P.PN ---
Subjective Progress Note Date: 09/08/22 Principal diagnosis: Sepsis, acute kidney injury, heart failure, on ventilator at 40% FiO2, on vasopressin and Levophed doses of both meds have been reduced, blood pressure is improved urinary output has improved, need TPN Noted the patient trached patient started on phenytoin secondary to possible seizure activities noted on EEG,end of life care discussed at length with mary petersen's daughter and is currently no CPR otherwise they want to continue current care however there has been explained that there is been no or little improvement in her status Patient presented to the hospital on 08/08/2022 secondary to shortness of breath hypotension patient had syncopal episode on the toilet, was recently discharged from rehab facility, brought in by EMS, was admitted to the stepdown unit, and subsequently transferred to the intensive care unit where she was placed on B iPAP secondary to severe acidosis and was intubated and placed on pressors , despite multiple boluses of normal saline despite receiving IV Lasix. This patient has a long-standing history of diabetes hypertension 09/07/2022 patient currently intubated and sedated, etiology for current state includes sepsis fungemia urinary sepsis urine cultures growing Pseudomonas and enterococcus and acute tubular necrosis the kidneys marisel, and left lower lobe pneumonia Patient is currently maintained on pressors including Levophed and vasopressin being reduced, trached, no recent change in status 09/08/2022 patient currently intubated, limited response and state includes sepsis fungemia cultures have grown Pseudomonas and enterococcus acute kidney injury kidneys are stable at this time observe left lower lobe pneumonia patient is currently maintained on pressures including Levophed and vasopressin she is trached no change in recent status Objective - Vital Signs Vital signs: Vital Signs Temp 98.1 F 09/08/22 16:00 Pulse 114 H 09/08/22 16:00 Resp 30 H 09/08/22 16:00 BP 128/47 09/02/22 15:00 Pulse Ox 100 09/08/22 16:00 FiO2 30 09/08/22 16:00 Intake & Output 09/07/22 09/08/22 09/08/22 18:59 06:59 18:59 Intake Total 2012.821 4078.573 8759.240 Output Total 1885 1190 870 Balance 127.821 235.333 525.240 Weight 124.9 kg 124.9 kg Intake: IV 1434 1318 918 0.9% @ KVO 195 165 165 Anidulafungin 100 mg In 100 130 Sodium Chloride 0.9% 100 ml @ 84 mls/hr IVPB DAILY [facility] Rx#:[id number] Ceftolozane/Tazobactam 1. 200 100 100 5 gm In Sodium Chloride 0 .9% 100 ml @ 100 mls/hr IV Q8HR [facility] Rx#:[id number] Lacosamide IV 150 mg In 50 50 Sodium Chloride 0.9% 50 ml @ 100 mls/hr IVPB BID [facility] Rx#:[id number] Linezolid 600 mg In 300 300 Dextrose/Water 1 300ml. bag @ 150 mls/hr IVPB Q12H [facility] Rx#:[id number] Mvi, Adult No.4 with Vit 520 390 K 10 ml Trace (Conc-1Ml/ Dose) 1 ml Potassium Phosphate 9 mmol Sodium Acetate 30 meq Potassium Chloride 80 meq Magnesium Sulfate gm 1 gm Sodium Chloride 4Meq/ml Vial 100 meq Calcium Gluconate 3 gm In Amino Acids 5 %/ Dextrose 20 % 1,000 ml @ 65 mls/hr IV .BY DURATION [facility] Rx#:[id number] Normal Saline: Pressure 39 33 33 Bag Phenytoin Sodium Inj 300 50 50 mg In Sodium Chloride 0.9 % 50 ml @ 80 mls/hr IVPB Q12H [facility] Rx#:[id number] Potassium Chloride 20 meq 400 In Water For Injection 1 100ml.bag @ 50 mls/hr IVPB Q2H [facility] Rx#: [id number] levETIRAcetam IV 1,000 mg 100 100 100 In Saline 1 100ml.bag @ 400 mls/hr IVPB Q12HR [facility] Rx#:[id number] Intake, IV Titration 353.821 97.333 477.240 Amount Anidulafungin 100 mg In 130 Sodium Chloride 0.9% 100 ml @ 84 mls/hr IVPB DAILY [facility] Rx#:[id number] Fat Emulsion 20% 250 ml 63 In Empty Bag 1 bag @ 21 mls/hr IV TuFr [facility] Rx#: [id number] Furosemide 100 mg In 100 97.333 100 Sodium Chloride 0.9% 90 ml @ 10 MG/HR 10 mls/hr IV .Q10H [facility] Rx#: [id number] Norepinephrine 32 mg In 86.184 66.736 Sodium Chloride 0.9% 218 ml @ 0.5 MCG/KG/MIN 25. 547 mls/hr IV .Q9H48M [facility] Rx#:[id number] Vasopressin 60 unit In 167.637 117.504 Sodium Chloride 0.9% 150 ml @ 0.04 UNITS/MIN 6.12 mls/hr IV .Q24H [facility] Rx#: [id number] Tube Feeding 100 10 TPN/PPN 65 TPN 65 Other 60 Output: Urine 1585 1190 870 Stool 300 Other: Voiding Method Indwelling Catheter Indwelling Catheter Indwelling Catheter ABP, PAP, CO, CI - Last Documented Arterial Blood Pressure 98/42 - Exam General: Patient is intubated on a vent Morbidly obese HEENT: Normocephalic atraumatic, senescent pattern baldness Neck: [No adenopathy.] Cardiac: [Heart regularly irregular. No S3. No S4. No clicks, rubs. Lungs: Diminished breath sounds bilaterally scattered rhonchi noted Abdomen: [No mass. No organomegaly. Bowel sounds presnt and normoactive in all 4 quadrants. This patient is morbidly obese Extremes: [4+ edema bilateral fingertips and toe tips are infarcting secondary to prolonged use of pressors : Normal female genitalia Skin: Multiple sites of ecchymosis on bilateral arms Neurologic: Patient is sedated on a ventilatory support Lymphatic: [No adenopathy.] - Labs CBC & Chem 7: 09/08/22 04:44 09/08/22 04:44 Labs: Abnormal Lab Results - Last 24 Hours (Table) 09/07/22 09/08/22 09/08/22 Range/Units 19:51 01:34 04:41 RBC (3.80-5.40) m/uL Hgb (11.4-16.0) gm/dL Hct (34.0-46.0) % RDW (11.5-15.5) % Plt Count (150-450) k/uL Lymphocytes # (1.0-4.8) k/uL Fibrinogen (200-500) mg/dL ABG pO2 (83-108) mmHg ABG HCO3 (21-25) mmol/L ABG Total CO2 (19-24) mmol/L ABG O2 Saturation (94-97) % Sodium (137-145) mmol/L Chloride (98-107) mmol/L BUN (7-17) mg/dL Glucose (74-99) mg/dL POC Glucose (mg/dL) 194 H 192 H 180 H (70-110) mg/dL Calcium (8.4-10.2) mg/dL Triglycerides (0.00-149.00) mg/dL 09/08/22 09/08/22 09/08/22 Range/Units 04:44 04:44 06:02 RBC 2.67 L (3.80-5.40) m/uL Hgb 7.4 L (11.4-16.0) gm/dL Hct 23.3 L (34.0-46.0) % RDW 22.6 H (11.5-15.5) % Plt Count 12 L* (150-450) k/uL Lymphocytes # 0.5 L (1.0-4.8) k/uL Fibrinogen 573 H (200-500) mg/dL ABG pO2 (83-108) mmHg ABG HCO3 (21-25) mmol/L ABG Total CO2 (19-24) mmol/L ABG O2 Saturation (94-97) % Sodium 135 L (137-145) mmol/L Chloride 97 L (98-107) mmol/L BUN 97 H (7-17) mg/dL Glucose 170 H (74-99) mg/dL POC Glucose (mg/dL) (70-110) mg/dL Calcium 8.3 L (8.4-10.2) mg/dL Triglycerides 197.00 H (0.00-149.00) mg/dL 09/08/22 09/08/22 09/08/22 Range/Units 06:48 08:34 12:05 RBC (3.80-5.40) m/uL Hgb (11.4-16.0) gm/dL Hct (34.0-46.0) % RDW (11.5-15.5) % Plt Count (150-450) k/uL Lymphocytes # (1.0-4.8) k/uL Fibrinogen (200-500) mg/dL ABG pO2 133 H (83-108) mmHg ABG HCO3 30 H (21-25) mmol/L ABG Total CO2 32 H (19-24) mmol/L ABG O2 Saturation 99.4 H (94-97) % Sodium (137-145) mmol/L Chloride (98-107) mmol/L BUN (7-17) mg/dL Glucose (74-99) mg/dL POC Glucose (mg/dL) 164 H 137 H (70-110) mg/dL Calcium (8.4-10.2) mg/dL Triglycerides (0.00-149.00) mg/dL 09/08/22 09/08/22 Range/Units 16:12 16:13 RBC (3.80-5.40) m/uL Hgb (11.4-16.0) gm/dL Hct (34.0-46.0) % RDW (11.5-15.5) % Plt Count (150-450) k/uL Lymphocytes # (1.0-4.8) k/uL Fibrinogen (200-500) mg/dL ABG pO2 (83-108) mmHg ABG HCO3 (21-25) mmol/L ABG Total CO2 (19-24) mmol/L ABG O2 Saturation (94-97) % Sodium (137-145) mmol/L Chloride (98-107) mmol/L BUN (7-17) mg/dL Glucose (74-99) mg/dL POC Glucose (mg/dL) 48 L 48 L (70-110) mg/dL Calcium (8.4-10.2) mg/dL Triglycerides (0.00-149.00) mg/dL Assessment and Plan (1) Sepsis Current Visit: Yes Status: Acute Code(s): A41.9 - SEPSIS, UNSPECIFIED ORGANISM SNOMED Code(s): 93533672 (2) Acquired hypothyroidism Current Visit: No Status: Acute Code(s): E03.9 - HYPOTHYROIDISM, UNSPECIFIED SNOMED Code(s): 630814756 (3) Acute exacerbation of chronic obstructive pulmonary disease Current Visit: Yes Status: Acute Code(s): J44.1 - CHRONIC OBSTRUCTIVE PULMONARY DISEASE W (ACUTE) EXACERBATION SNOMED Code(s): 502453750 (4) Acute on chronic diastolic (congestive) heart failure Current Visit: No Status: Acute Code(s): I50.33 - ACUTE ON CHRONIC DIASTOLIC (CONGESTIVE) HEART FAILURE SNOMED Code(s): 971372044 (5) Acute on chronic renal failure Current Visit: No Status: Acute Code(s): N17.9 - ACUTE KIDNEY FAILURE, UNSPECIFIED; N18.9 - CHRONIC KIDNEY DISEASE, UNSPECIFIED SNOMED Code(s): 517797634 (6) Acute pulmonary edema Current Visit: No Status: Acute Code(s): J81.0 - ACUTE PULMONARY EDEMA SNOMED Code(s): 35419750 (7) Acute renal failure Current Visit: No Status: Acute Code(s): N17.9 - ACUTE KIDNEY FAILURE, UNSPECIFIED SNOMED Code(s): 50768811 (8) Altered mental status Current Visit: No Status: Acute Code(s): R41.82 - ALTERED MENTAL STATUS, UNSPECIFIED SNOMED Code(s): 068630739 (9) Anemia Current Visit: Yes Status: Acute Priority: High Code(s): D64.9 - ANEMIA, UNSPECIFIED SNOMED Code(s): 934608040 (10) CAD (coronary atherosclerotic disease) Current Visit: No Status: Acute Code(s): I25.10 - ATHSCL HEART DISEASE OF [place] CORONARY ARTERY W/O ANG PCTRS SNOMED Code(s): 597146281 (11) CHF (congestive heart failure) Current Visit: No Status: Acute Code(s): I50.9 - HEART FAILURE, UNSPECIFIED SNOMED Code(s): 66152725 (12) CKD (chronic kidney disease) stage 3, GFR 30-59 ml/min Current Visit: No Status: Acute Code(s): N18.30 - CHRONIC KIDNEY DISEASE, STAGE 3 UNSPECIFIED SNOMED Code(s): 345706326 (13) COPD exacerbation Current Visit: No Status: Acute Code(s): J44.1 - CHRONIC OBSTRUCTIVE P ULMONARY DISEASE W (ACUTE) EXACERBATION SNOMED Code(s): 007449536 (14) COVID-19 Current Visit: No Status: Acute Code(s): U07.1 - COVID-19 SNOMED Code(s): 428359241 (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 Current Visit: No Status: Acute Code(s): M54.42 - LUMBAGO WITH SCIATICA, LEFT SIDE; M54.41 - LUMBAGO WITH SCIATICA, RIGHT SIDE; G89.29 - OTHER CHRONIC PAIN SNOMED Code(s): 849415257 Plan: Acute kidney injury secondary to urinary sepsis, slowly improving Hypotension secondary to sepsis, improved Acute respiratory failure ventilator dependent Left lower lobe pneumonia Urinary tract infection secondary to Pseudomonas and enterococcus improving Elevated liver function secondary to sepsis Aggressive supportive care being provided Prognosis poor secondary to multiorgan failure ventilator dependence and acute kidney injury Tracheostomy placed, This has been discussed with and daughter multiple times Time with Patient: Less than 30
[2022-09-08 20:01] LABS: Glucose,Whole Blood 82 mg/dL (70-110)
[2022-09-08] MEDS: INSULIN DETEMIR (LEVEMIR) 100 UNIT/ML SYR SQ SCH (20:29)
[2022-09-08] MEDS: 1: MVI, ADULT NO.4 WITH VIT K 10 ML, TRACE (CONC-1ML/DOSE) 1 ML, POTASSIUM PHOSPHATE 9 M IV SCH ×9 (20:34)
[2022-09-08] MEDS: POTASSIUM BICARBONATE/CIT AC 20 MEQ TABLET.EFF PO SCH (20:35)
[2022-09-09 00:19] LABS: Glucose,Whole Blood 73 mg/dL (70-110)
[2022-09-09] MEDS: 1: MVI, ADULT NO.4 WITH VIT K 10 ML, TRACE (CONC-1ML/DOSE) 1 ML, POTASSIUM PHOSPHATE 9 M IV SCH ×27 (00:19→16:39)
[2022-09-09] MEDS: INSULIN ASPART (NovoLOG) 100 UNIT/ML VIAL SQ SCH ×6 (00:29→21:10)
[2022-09-09] MEDS: PHENYTOIN SODIUM INJ 300 MG in SODIUM CHLORIDE 0.9% 50 ML IVPB SCH ×3 (00:43→23:52)
[2022-09-09] MEDS: CEFTOLOZANE/TAZOBACTAM 1.5 GM in SODIUM CHLORIDE 0.9% 100 ML IV SCH ×4 (00:56→23:52)
[2022-09-09] MEDS: LINEZOLID 600 MG in DEXTROSE/WATER 1 300ML.BAG IVPB SCH (01:11)
[2022-09-09 02:33] LABS: Glucose,Whole Blood 166 mg/dL (70-110)
[2022-09-09] MEDS: ANIDULAFUNGIN 100 MG in SODIUM CHLORIDE 0.9% 100 ML IVPB SCH (02:33)
[2022-09-09 04:25] LABS: Glucose,Whole Blood 237 mg/dL (70-110)
[2022-09-09 04:25] LABS: Glucose,Whole Blood 234 mg/dL (70-110)
[2022-09-09] MEDS: NOREPINEPHRINE 32 MG in SODIUM CHLORIDE 0.9% 218 ML IV SCH ×2 (04:54→19:30)
[2022-09-09 04:59] LABS: Anisocytosis Moderate; Basophils % (A) 0 %; Eosinophils % (A) 0 %; HCT 23.5 % (34.0-46.0); HGB 7.3 gm/dL (11.4-16.0); Hypochromasia Moderate; Lymphocytes # (A) 0.6 k/uL (1.0-4.8); Lymphocytes % (A) 7 %; MCH 27.4 pg (25.0-35.0); MCHC 31.2 g/dL (31.0-37.0); MCV 87.9 fL (80.0-100.0); Macrocytosis Slight; Mean Platelet Volume 9.3; Monocytes # (A) 0.3 k/uL (0-1.0); Monocytes % (A) 4 %; Neutrophils # (A) 7.7 k/uL (1.3-7.7); Neutrophils % (A) 87 %; Phosphorus 2.9 mg/dL (2.5-4.5); Poikilocytosis Slight; RBC 2.67 m/uL (3.80-5.40); RDW 22.5 % (11.5-15.5); WBC 8.9 k/uL (3.8-10.6)
[2022-09-09 05:02] LABS: Platelet Count 12 k/uL (150-450)
[2022-09-09] MEDS: FUROSEMIDE 100 MG in SODIUM CHLORIDE 0.9% 90 ML IV SCH (05:35)
[2022-09-09 05:48] LABS: ABG Base Excess 0.5 mmol/L; ABG HCO3 26 mmol/L (21-25); ABG Oxygen Saturation 99.1 % (94-97); ABG PCO2 42 mmHg (35-45); ABG PH 7.39 (7.35-7.45); ABG PO2 132 mmHg (83-108); ABG TCO2 27 mmol/L (19-24); Allen Test Performed? Yes
--- NOTE | 2022-09-09 07:32 | P.PN ---
Subjective Progress Note Date: 09/09/22 On today's evaluation of 09/04/2022, seeing the patient for a follow-up. The patient is a very complex case, an 87-year-old female patient remains in septic shock, unresponsive, on a mechanical ventilator, being followed up in the intensive care unit, still seeing several consultants regarding her complex situation. In summary, this patient has been on a mechanical ventilator for septic shock. During her course of her illness, the patient had various infections, as the patient's initial infection was related to Enterococcus faecalis and pseudomonas aeruginosa in her urine and subsequently the patient became septic and grew anaerobic gram-negative bacillus in the blood and this was thought to be related to an ischemic bowel and following that, the patient developed sputum positive for Ange and the blood culture was also positive for Ange albicans on 08/11/2022. Subsequent sputum from 08/19/2022 was positive for MRSA, blood culture was positive for VRE on 08/19/2022 and repeated blood culture from 08/23/2022 was again positive for VRE. The patient is currently on a combination of Zerbaxa , eraxis and Zyvox. This morning, the patient is not receiving any sedation. As mentioned, she is completely unresponsive. she was seen by neurology on multiple occasions. The patient's m ost recent CAT scan of the brain that was done on 09/03/2022 showed evidence of cerebral atrophy without any acute changes. EEG that was done on 09/01/2022 showed evidence of burst suppression discharges suggestive of nonconvulsive status Versus anoxia the brain. There is also background slowing suggestive of severe encephalopathy. The patient does not respond to any verbal. She does not identify any painful stimulation. She has been off sedation for quite some time and I do not to follow this patient back into 2022. She remains on a mechanical ventilator. Noted the patient had received a tracheostomy and currently is on assist-control mode of mechanical ventilation. She is currently on a rate of 30 with a tidal volume of 400 and FiO2 of 40% with a PEEP of 10. Chest x-ray showing dense consolidation of the lung bases bilaterally. Blood gas from today shows a pH of 7.39, pCO2 of 46, pO2 133. Hemodynamically, she is on pressors and the patient is on vasopressin physiologic data that 0.04 units and the patient is also on norepinephrine running at 0.14 mcg/kg/m. She remains on a running at 10 mg an hour. Overall fluid balance is -2.6 L over the past 24 hours and the patient is responding nicely to the diuretics. Note that the most recent blood culture that was done on 08/29/2022 showed no evidence of any microbial growth. There is evidence currently of 14.6 with a hemoglobin of 8.4 and a platelet count of 104. BUN is at 19 with a creatinine of 1.2 and a sodium level is at 129. AST is 46, ALT is 27, alkaline phosphatase 187. Blood sugars at 1:30 from this morning. She still has a triple-lumen catheter in her left subclavian vein. She also has not. Right femoral. Patient is on Levemir insulin 15 units at bedtime in addition to NovoLog based on a sliding scale coverage. Antibiotics will mentioned above. TPN is running at the rate of 65 mL an hour. She is on amiodarone 400 mg by mouth twice a day and her current cardiac rhythm is controlled atrial fibrillation. She is on no anticoagulants for now. In terms of bowel movement activity, the patient is producing large amounts of stool and she has a fecal management system in Place. The patient remains on laxatives. The patient is a combination of MiraLAX and lactulose. Most recent ammonia level is at 20. On today's evaluation of 09/05/2022, I'm seeing the patient for a follow-up. Clinically unchanged. Off sedation. Unresponsive. Still on the mechanical ventilator and the patient has been switched to no colds. Nevertheless, the wanted to continue ongoing treatment with the understanding that the patient carries a very poor prognosis because of septic shock and multisystem organ failure. For now, the patient is on no sedation. The patient is unresponsive. The patient is not following any commands. The patient has been off sedation since 08/30/2022. The patient remains on mechanical ventilator and she is essentially on the same ventilator setting. She is currently on assist- control mode of mechanical ventilation with a rate of 30, tidal volume of 400, FiO2 of 40% and a PEEP of 10. The blood gas from today showed a pH of 7.4 with a pCO2 of 47 and pO2 of 110. Chest x-ray from today is not done. The last chest x-ray was from 09/03/2022. We'll repeat another chest x-ray tomorrow. The last chest x-ray showed tracheostomy and NG tube being in good location. The patient continues to have bilateral airspace disease. Hemodynamically, the patient's current cardiac rhythm is controlled a chest fibrillation. The patient is on pressors. The patient is on a norepinephrine at a rate of 0.13 mcg/kg/m. The patient remains on Lasix drip at 10 mg an hour. The patient is also on vasopressin physiologic dose of 0.04 units an hour. The patient is also receiving TPN for nutritional support. TPN is running at 65 mL an hour. Overall fluid balance over the past 24 hours has been in the order of -5.2 L as the patient is being aggressively diuresed. Meanwhile, a trial of enteral feeding was given to this patient in the patient failed to tolerate enteral feeding. She has a fecal management system in Place and she is still having liquidy loose stools. The abdomen is nondistended. The response of 10.6 with a hemoglobin of 8.2 and a platelet count of 66 which is a drop compared to yesterday. In same time, the patient has a sodium of 131, potassium of 3.2, and a potassium level has been placed, BUN is at 88 with a creatinine of 1.0 and is using a 27. Patient has a AST of 50, ALT of 28, alkaline phosphatase of 206, and albumin is at 1.8 with a total protein of 4.3. Glucose at 126. No new cultures are not available the most recent culture of the blood was from 08/29/2002 and this was negative. On 09/06/2022, clinically unchanged and the patient remains unresponsive. She grimaces only to deep painful stimulation. Otherwise, she does not open up her eyes spontaneously. She does not follow any commands. She has been off sedation for more than a week. She remains in septic shock with multisystem organ failure. For now, the patient's is on a mechanical ventilator through tracheostomy tube. The patient remains on assist-control mode of mechanical ventilation at the rate of 30 with a tidal volume of 400 and FiO2 of 40% and a P EEP is currently at 6. Meanwhile, the blood gas from today showed a pH of 7.42 with a pCO2 of 47 and a pO2 of 133. The patient is not having any significant orotracheal secretions. The chest x-ray that was done yesterday on 09/05/2022 showed adequate positioning of the tracheostomy tube. NG tube is also in good location. The patient has persistent bilateral pulmonary infiltration and pleural effusions. The chest x-ray findings of essentially unchanged. There may be just some air within the abdomen is on the x-ray findings and we noted the patient had pneumoperitoneum earlier. In terms of feeding, the patient was unable to tolerate enteral feeding. She was having high NG output. Bowel sounds are still sluggish. Based on that, the patient was kept on TPN for nutritional support which is running at the rate of 65 mL an hour. She remains on IV fluids at KVO. She is on norepinephrine which is running at 0.11 mcg/kg/m. Urine output is adequate. Overall fluid balance is -1.1 L over the past 24 hours as the patient is being also diuresed with IV Lasix and the patient is receiving Lasix drip at 10 mg an hour. There is improvement in the third spacing and edema in the upper and lower oximetry is bilaterally. Nevertheless, the patient continues to have digital necrosis in her toes and her fingers. Fecal management system still in place. The patient remains on the same antibiotic coverage for now. The patient's blood work from today shows a sodium of 133, potassium of 3.2, chloride of 95 with a bicarb of 29. LFTs are unchanged. The patient's WBC count from yesterday was at 10.6 with a hemoglobin of 8.2. Most recent blood culture from 08/29/2022 was negative. 09/07/2022, the patient remains off sedation. Unresponsive still. Past- pointing is eye-opening. She opens her mouth. Does not smoke. Does not follow any commands. At times, there is some postnasal eye-opening. No seizure activity has been noted. The patient remains on a combination of antiepileptic medications and the patient is currently on a combination of Dilantin, Keppra and Vimpat. Neurology still on the case. The patient did have some partial seizures on earlier EKGs and subsequent her seizures were controlled. Meanwhile, she remains on mechanical ventilator. As mentioned earlier, the patient is tracheostomy tube in place. The patient is on assist-control mode of mechanical ventilation at the rate of 30 with a tidal volume of 400 and FiO2 of 40% with a PEEP of 6. The blood gas from today shows a pH of 7.45 with a pCO2 45 and pO2 of 88. No significant orotracheal secretions. Hemodynamically, there is further improvement in fluid balance as the patient remains on Lasix drip at 10 mg an hour. The overall fluid balance has been negative in the order of 2.4 L. The patient is still on pressors were norepinephrine and the pressors have been weaned down to 0.0 aches micrograms per kilogram per minute. The patient remains on physiologic dose of vasopressin. IV fluids are currently at KVO. She remains in atrial fibrillation. Her BUN is at 91 with a creatinine of 0.9. Bicarb is at 31. Sodium is at 136 with a potassium level of 2.6 and this dates to be replaced. TPN is running at the rate of 65 mL an hour. No fever and the patient had another set of blood cultures sent yesterday. Otherwise, no other significant events. Family is being updated on her condition on daily basis. is not ready to let go. 09/08/2022, clinically unchanged and the patient remains unresponsive. I'm not seeing any signs of neurologic recovery in this patient. Remains unresponsive with 24 but or painful stimulation. No cough or gag. She is able to generate breaths above the mechanical ventilator. She occasionally spontaneously opens up her eyes. Still deeply comatose. No seizure activity has been noted. Suspect underlying component of encephalopathy, could be anoxic, could be metabolic. The patient meanwhile is on a mechanical ventilator. She is a tracheostomy. Ventilator settings are essentially unchanged with a rate of 30, tidal volume 400, FiO2 of 40% and PEEP is currently at 5. PH is 7.4 with a pCO2 of 45 and a pO2 of 133. As such, there is adequate oxygenation for now. In terms of hemodynamics, the patient is on minimal doses of pressors. The patient remains on vasopressin physiologic dose and norepinephrine running at 0.06 mcg/kg/m and this should be able to come off within the next 24 hours. The white suppositive 0.3. Repeat cultures were sent and the results are still pending for now. No fever. Remains on the same antibiotic coverage. On a separate note, the patient had a progressive drop in the platelet count over the past 4 days. She has not taken any heparin at this point in time. She never took heparin. She would've taken Lovenox several weeks back. Her platelet count is currently down to 12. No signs of any acute bleeding at this point in time. Hemoglobin is at 7.4. Cognition profile was done and there is no signs of DIC. Normal PT/PTT and INR. Fibrinogen level is at 573, slightly elevated. Hematology consultation was obtained regarding the strep and a platelet count. We'll send also heparin-induced antibodies. We attempted to and 32 this patient. She continues to have high residuals. Currently she is still on TPN for nutritional support and vital AF is still running at the rate of 10 mL an hour. Fecal management system is still in place. The patient is producing stool in the order of 400 mL on a daily basis and this is liquidy stool. The patient's electrolytes are all within normal limits. The BUN is at 97 with a creatinine of 0.7. Sodiums of 135. Her cardiac rhythm is sinus pH she remains on amiodarone. She is still on Lasix drip at 10 mg an hour. Lives with balance over the past 24 hours have been -2.4 L and the patient is still having significant amount of third spacing and edema which is essentially improving as the patient is headed towards negative fluid balance on a daily basis. She continues to have necrotic digits which remained essentially unchanged. Of concern is the neurologic impairment and the patient is still unresponsive. Remain on the same antibiotic coverage which includes Zyvox, Zerbaxa and Eraxis. 09/09/2022, neurologically unchanged, unresponsive, off sedation. Remains still on a mechanical ventilator. This is controlled rate of 30 with a tidal volume of 400 and FiO2 of 40% with a PEEP of 5. Blood gas show a pH of 7.39 with a pCO2 of 42 and pO2 of 132. The patient is doing some respiratory efforts were she breathes above the vent. No cough. No gag. No response to deep painful stimulation. No seizure activity has been noted. Hemodynamically, she was taken of the vasopressin. Norepinephrine dose was gradually brought up yesterday currently running at 0.28 mcg/kg/m. Her blood pressure is stable and we will attempt to wean it down again. Afebrile. Urine output is in order of 40-60 mL an hour and the overall fluid balance has been +363 mL over the past 24 hours. She remains on Lasix drip at 10 mg an hour. Remains on the same antibiotic coverage. There is a concern of an underlying thrombocytopenia. Hematology oncology consulted. Further workup is in order then we believe that this is a drug induced was at the PMI. No evidence of bleeding. Platelet count of 12. Hemoglobin 7.3 with a WBC count of 8.9. No signs of DIC at this point in time. She is tolerating his enteral feeding which is running at the rate of 30 mL an hour of vital AF. TPN is still running at a rate of 65 mL an hour. Fecal management system was in place. Urine output is adequate. Stool output is in order of 10-15 mL an hour. Cardiac rhythm is A. fib. The patient remains on amiodarone. The patient is not taking any form of anticoagulation. The patient on mitogen 10 mg by mouth 3 times a day. Blood sugar control is with Levemir 15 units at bedtime n addition to a sliding scale coverage. Antibiotic coverage is the same.Remain on the same antibiotic coverage which includes Zyvox, Zerbaxa and Eraxis. Objective - Vital Signs Vital signs: Vital Signs Temp 98.5 F 09/09/22 04:00 Pulse 112 H 09/09/22 07:00 Resp 30 H 09/09/22 07:00 BP 128/47 09/02/22 15:00 Pulse Ox 99 09/09/22 07:00 FiO2 40 09/09/22 04:00 Intake & Output 09/08/22 09/09/22 09/09/22 18:59 06:59 18:59 Intake Total 6660.329 2062.827 Output Total 945 1355 Balance 568.393 316.827 Weight 124.9 kg Intake: IV 936 1090 0.9% @ KVO 180 180 Anidulafungin 100 mg In 130 100 Sodium Chloride 0.9% 100 ml @ 84 mls/hr IVPB DAILY [facility] Rx#:[id number] Ceftolozane/Tazobactam 1. 100 100 5 gm In Sodium Chloride 0 .9% 100 ml @ 100 mls/hr IV Q8HR [facility] Rx#:[id number] Fat Emulsion 20% 250 ml 84 In Empty Bag 1 bag @ 21 mls/hr IV TuFr [facility] Rx#: [id number] Lacosamide IV 150 mg In 50 Sodium Chloride 0.9% 50 ml @ 100 mls/hr IVPB BID [facility] Rx#:[id number] Mvi, Adult No.4 with Vit 390 390 K 10 ml Trace (Conc-1Ml/ Dose) 1 ml Potassium Phosphate 9 mmol Sodium Acetate 30 meq Potassium Chloride 80 meq Magnesium Sulfate gm 1 gm Sodium Chloride 4Meq/ml Vial 100 meq Calcium Gluconate 3 gm In Amino Acids 5 %/ Dextrose 20 % 1,000 ml @ 65 mls/hr IV .BY DURATION [facility] Rx#:[id number] Normal Saline: Pressure 36 36 Bag Phenytoin Sodium Inj 300 50 mg In Sodium Chloride 0.9 % 50 ml @ 80 mls/hr IVPB Q12H [facility] Rx#:[id number] levETIRAcetam IV 1,000 mg 100 100 In Saline 1 100ml.bag @ 400 mls/hr IVPB Q12HR [facility] Rx#:[id number] Intake, IV Titration 577.393 221.827 Amount Anidulafungin 100 mg In 130 Sodium Chloride 0.9% 100 ml @ 84 mls/hr IVPB DAILY [facility] Rx#:[id number] Fat Emulsion 20% 250 ml 63 In Empty Bag 1 bag @ 21 mls/hr IV TuFr [facility] Rx#: [id number] Furosemide 100 mg In 200 100 Sodium Chloride 0.9% 90 ml @ 10 MG/HR 10 mls/hr IV .Q10H [facility] Rx#: [id number] Norepinephrine 32 mg In 66.889 121.827 Sodium Chloride 0.9% 218 ml @ 0.5 MCG/KG/MIN 25. 547 mls/hr IV .Q9H48M [facility] Rx#:[id number] Vasopressin 60 unit In 117.504 Sodium Chloride 0.9% 150 ml @ 0.04 UNITS/MIN 6.12 mls/hr IV .Q24H [facility] Rx#: [id number] Tube Feeding 240 Other 120 Output: Urine 945 530 Stool 825 Other: Voiding Method Indwelling Catheter Indwelling Catheter ABP, PAP, CO, CI - Last Documented Arterial Blood Pressure 125/50 - Exam GENERAL EXAM: Intubated, sedated, 87-year-old morbidly obese female HEAD: Normocephalic. EYES: Sluggish reaction of pupils, equal size. NOSE: Nasogastric tube secured in place. Clear with pink turbinates. THROAT: Oral endotracheal tube in place. NECK: No masses, no JVD. CHEST: No chest wall deformity. LUNGS: Equal air entry with crackles in the bilateral bases. CVS: S1 and S2 normal with no audible murmur, irregular rhythm. ABDOMEN: No hepatosplenomegaly, normal bowel sounds, no guarding or rigidity. SPINE: No scoliosis or deformity SKIN: No rashes CENTRAL NERVOUS SYSTEM: Sedated, tone is normal in all 4 extremities. EXTREMITIES: There is 1-2+ peripheral edema. Changes of chronic venous stasis. No clubbing, no cyanosis. Peripheral pulses are intact. - Labs CBC & Chem 7: 09/09/22 04:19 09/09/22 04:19 Labs: Abnormal Lab Results - Last 24 Hours (Table) 09/08/22 09/08/22 09/08/22 Range/Units 04:44 08:34 12:05 RBC (3.80-5.40) m/uL Hgb (11.4-16.0) gm/dL Hct (34.0-46.0) % RDW (11.5-15.5) % Plt Count (150-450) k/uL Lymphocytes # (1.0-4.8) k/uL ABG pO2 (83-108) mmHg ABG HCO3 (21-25) mmol/L ABG Total CO2 (19-24) mmol/L ABG O2 Saturation (94-97) % Sodium (137-145) mmol/L BUN (7-17) mg/dL Glucose (74-99) mg/dL POC Glucose (mg/dL) 164 H 137 H (70-110) mg/dL Calcium (8.4-10.2) mg/dL Triglycerides 197.00 H (0.00-149.00) mg/dL 09/08/22 09/08/22 09/09/22 Range/Units 16:12 16:13 02:31 RBC (3.80-5.40) m/uL Hgb (11.4-16.0) gm/dL Hct (34.0-46.0) % RDW (11.5-15.5) % Plt Count (150-450) k/uL Lymphocytes # (1.0-4.8) k/uL ABG pO2 (83-108) mmHg ABG HCO3 (21-25) mmol/L ABG Total CO2 (19-24) mmol/L ABG O2 Saturation (94-97) % Sodium (137-145) mmol/L BUN (7-17) mg/dL Glucose (74-99) mg/dL POC Glucose (mg/dL) 48 L 48 L 166 H (70-110) mg/dL Calcium (8.4-10.2) mg/dL Triglycerides (0.00-149.00) mg/dL 09/09/22 09/09/22 09/09/22 Range/Units 04:19 04:19 04:23 RBC 2.67 L (3.80-5.40) m/uL Hgb 7.3 L (11.4-16.0) gm/dL Hct 23.5 L (34.0-46.0) % RDW 22.5 H (11.5-15.5) % Plt Count 12 L* (150-450) k/uL Lymphocytes # 0.6 L (1.0-4.8) k/uL ABG pO2 (83-108) mmHg ABG HCO3 (21-25) mmol/L ABG Total CO2 (19-24) mmol/L ABG O2 Saturation (94-97) % Sodium 136 L (137-145) mmol/L BUN 97 H (7-17) mg/dL Glucose 194 H (74-99) mg/dL POC Glucose (mg/dL) 237 H (70-110) mg/dL Calcium 8.0 L (8.4-10.2) mg/dL Triglycerides (0.00-149.00) mg/dL 09/09/22 09/09/22 Range/Units 04:24 05:45 RBC (3.80-5.40) m/uL Hgb (11.4-16.0) gm/dL Hct (34.0-46.0) % RDW (11.5-15.5) % Plt Count (150-450) k/uL Lymphocytes # (1.0-4.8) k/uL ABG pO2 132 H (83-108) mmHg ABG HCO3 26 H (21-25) mmol/L ABG Total CO2 27 H (19-24) mmol/L ABG O2 Saturation 99.1 H (94-97) % Sodium (137-145) mmol/L BUN (7-17) mg/dL Glucose (74-99) mg/dL POC Glucose (mg/dL) 234 H (70-110) mg/dL Calcium (8.4-10.2) mg/dL Triglycerides (0.00-149.00) mg/dL Assessment and Plan Plan: Acute on chronic hypoxemic respiratory failure, status post intubation on August 10, and tracheostomy on August 25. Chest x-ray continues to show consolidation of the lung bases and pleural effusions bilaterally. Oxygen is stable and the patient remains on a mechanical ventilator assist control mode and the patient has a tracheostomy tube in place. No change in oxygenation and the patient's overall respiratory status is stable. The patient has adequate oxygenation for now. Blood gas was noted. Bilateral lower lobe pneumonia with persistent consolidation lung bases. Most recent sputum indicating MRSA and Ange from 08/19/2022 no chest x-ray over the past 48 hours Septic shock of multiple sources. The patient had initially Enterococcus faecalis and Pseudomonas in her urine on 08/08/2022. The patient also had anaerobic gram-negative bacillus in her blood probably of an end of the abdominal source. Subsequently, the patient had systemic candidemia on 08/19/2022 and VRE in her blood on 08/23/2022. She remains on pressors. Note that review blood cultures were sent. The patient remains on a physiologic dose of vasopressin and norepinephrine at 0.28 mcg/kg/m. repeat cultures are still pending for now Unresponsive, CAT scan of the brain is negative, EEG showing severe encephalopathy, most recent CAT scan of the brain was done on 09/03/2022 and it showed cerebral atrophy without any acute abnormalities. The patient remains severely encephalopathic. The patient had partial seizures confirmed by EEG and the patient is on a combination of antiepileptic medication including dilantin and Keppra. Neurology is still on the case. Clinically unchanged TPN nutritional support, tolerating enteral nutrition is being gradually advanced Acute on chronic diastolic CHF. Abdominal sepsis/septic shock. Anion gap metabolic acidosis. Urinary tract infection secondary to Enterococcus faecalis and pseudomonas aeruginosa. Bacteremia secondary to vancomycin-resistant enterococci (VRE) Systemic candidiasis. The patient systemic candidemia confirmed by positive blood culture. Repeat blood culture was negative and the patient is current on Eraxis. Atrial fibrillation with RVR, rate controled for now Acute on chronic kidney disease. The creatinine is stable and the patient is currently on Lasix drip running at 10 mg an hour Recent history of coronavirus infection. History of aortic stenosis. Acute on chronic anemia. History of COPD. History of diastolic congestive heart failure. Morbid obesity. Diarrhea with fecal management system in Place, diarrhea has improved Necrotic digits of the upper and lower extremities and the patient has gangr enous toes and fingers probably related to chronic sepsis, hypotension, and use of pressors Pressure ulcer on her coccyx Due to thrombocytopenia with a drop in the platelet count down to 19. No ble eding. No evidence of DIC. Rule out drug induced. Plan: Consult hematology regarding thrombocytopenia workup is in progress, could be drug induced probably related to zerbaxa and will discuss his with infectious disease Operative platelet count and transfuse is a platelet count dropped below 10 Continue ventilator support, dropped rate down to 24 Repeat blood cultures, results are pending, negative thus far Continue same antibiotic coverage, may need to modify antibiotics especially the thrombocytopenia is antibiotic induced. Continue trigger feeding with enteral nutrition, vitamin AF at the rate of 30 mL an hour Continue TPN for nutritional support The patient will be taken off the IV Lasix drip. We'll place her on 40 mg IV Lasix every 12 hours Wean off norepinephrine no sadation Continue midodrine 10 mg tid Avoid sedatives for now, the patient has been off sedation for more than a week. No reasonable neurological recovery. Most recent CAT scan of the brain was do ne on 09/03/2022 showing no acute changes Wound care Extremely poor prognosis. This has been discussed with the family on multiple occasions. Condition is critical and prognosis poor. We'll continue to follow. This evaluation was a on more than 30 minutes. is not ready to Go and is not considering comfort care measures yet. Her chance of recovery is extremely low for and this has been explained to the daughter and the on multiple occasions. Time with Patient: Greater than 30
--- NOTE | 2022-09-09 08:00 | P.PN ---
Subjective Progress Note Date: 09/09/22 Pt remains sedated on the vent. There is significant generalized anasarca. Discuss with nursing. No obvious bleeding noted in the ET tube, or [place]. No unusual subcutaneous bleeding. Objective - Vital Signs Vital signs: Vital Signs Temp 98.5 F 09/09/22 04:00 Pulse 112 H 09/09/22 07:00 Resp 30 H 09/09/22 07:00 BP 128/47 09/02/22 15:00 Pulse Ox 99 09/09/22 07:00 FiO2 40 09/09/22 04:00 Intake & Output 09/08/22 09/09/22 09/09/22 18:59 06:59 18:59 Intake Total 9751.343 7231.827 Output Total 945 1355 Balance 568.393 316.827 Weight 124.9 kg Intake: IV 936 1090 0.9% @ KVO 180 180 Anidulafungin 100 mg In 130 100 Sodium Chloride 0.9% 100 ml @ 84 mls/hr IVPB DAILY [facility] Rx#:[id number] Ceftolozane/Tazobactam 1. 100 100 5 gm In Sodium Chloride 0 .9% 100 ml @ 100 mls/hr IV Q8HR [facility] Rx#:[id number] Fat Emulsion 20% 250 ml 84 In Empty Bag 1 bag @ 21 mls/hr IV TuFr [facility] Rx#: [id number] Lacosamide IV 150 mg In 50 Sodium Chloride 0.9% 50 ml @ 100 mls/hr IVPB BID [facility] Rx#:[id number] Mvi, Adult No.4 with Vit 390 390 K 10 ml Trace (Conc-1Ml/ Dose) 1 ml Potassium Phosphate 9 mmol Sodium Acetate 30 meq Potassium Chloride 80 meq Magnesium Sulfate gm 1 gm Sodium Chloride 4Meq/ml Vial 100 meq Calcium Gluconate 3 gm In Amino Acids 5 %/ Dextrose 20 % 1,000 ml @ 65 mls/hr IV .BY DURATION [facility] Rx#:[id number] Normal Saline: Pressure 36 36 Bag Phenytoin Sodium Inj 300 50 mg In Sodium Chloride 0.9 % 50 ml @ 80 mls/hr IVPB Q12H [facility] Rx#:[id number] levETIRAcetam IV 1,000 mg 100 100 In Saline 1 100ml.bag @ 400 mls/hr IVPB Q12HR [facility] Rx#:[id number] Intake, IV Titration 577.393 221.827 Amount Anidulafungin 100 mg In 130 Sodium Chloride 0.9% 100 ml @ 84 mls/hr IVPB DAILY [facility] Rx#:[id number] Fat Emulsion 20% 250 ml 63 In Empty Bag 1 bag @ 21 mls/hr IV TuFr [facility] Rx#: [id number] Furosemide 100 mg In 200 100 Sodium Chloride 0.9% 90 ml @ 10 MG/HR 10 mls/hr IV .Q10H [facility] Rx#: [id number] Norepinephrine 32 mg In 66.889 121.827 Sodium Chloride 0.9% 218 ml @ 0.5 MCG/KG/MIN 25. 547 mls/hr IV .Q9H48M [facility] Rx#:[id number] Vasopressin 60 unit In 117.504 Sodium Chloride 0.9% 150 ml @ 0.04 UNITS/MIN 6.12 mls/hr IV .Q24H [facility] Rx#: [id number] Tube Feeding 240 Other 120 Output: Urine 945 530 Stool 825 Other: Voiding Method Indwelling Catheter Indwelling Catheter ABP, PAP, CO, CI - Last Documented Arterial Blood Pressure 125/50 - Constitutional Constitutional Comment(s): Sedated, on vent General appearance: Present: no acute distress - Respiratory Respiratory: bilateral: CTA - Cardiovascular Rhythm: regular Heart sounds: normal: S1, S2 - Gastrointestinal General gastrointestinal: Present: decreased bowel sounds, soft - Integumentary Integumentary Comment(s): Thinning of the skin, due to generalized anasarca - Musculoskeletal Musculoskeletal: Present: generalized weakness - Psychiatric Psychiatric Comment(s): Sedated, on ventilator - Labs CBC & Chem 7: 09/09/22 04:19 09/09/22 04:19 Labs: Abnormal Lab Results - Last 24 Hours (Table) 09/08/22 09/08/22 09/08/22 Range/Units 04:44 08:34 12:05 RBC (3.80-5.40) m/uL Hgb (11.4-16.0) gm/dL Hct (34.0-46.0) % RDW (11.5-15.5) % Plt Count (150-450) k/uL Lymphocytes # (1.0-4.8) k/uL ABG pO2 (83-108) mmHg ABG HCO3 (21-25) mmol/L ABG Total CO2 (19-24) mmol/L ABG O2 Saturation (94-97) % Sodium (137-145) mmol/L BUN (7-17) mg/dL Glucose (74-99) mg/dL POC Glucose (mg/dL) 164 H 137 H (70-110) mg/dL Calcium (8.4-10.2) mg/dL Triglycerides 197.00 H (0.00-149.00) mg/dL 09/08/22 09/08/22 09/09/22 Range/Units 16:12 16:13 02:31 RBC (3.80-5.40) m/uL Hgb (11.4-16.0) gm/dL Hct (34.0-46.0) % RDW (11.5-15.5) % Plt Count (150-450) k/uL Lymphocytes # (1.0-4.8) k/uL ABG pO2 (83-108) mmHg ABG HCO3 (21-25) mmol/L ABG Total CO2 (19-24) mmol/L ABG O2 Saturation (94-97) % Sodium (137-145) mmol/L BUN (7-17) mg/dL Glucose (74-99) mg/dL POC Glucose (mg/dL) 48 L 48 L 166 H (70-110) mg/dL Calcium (8.4-10.2) mg/dL Triglycerides (0.00-149.00) mg/dL 09/09/22 09/09/22 09/09/22 Range/Units 04:19 04:19 04:23 RBC 2.67 L (3.80-5.40) m/uL Hgb 7.3 L (11.4-16.0) gm/dL Hct 23.5 L (34.0-46.0) % RDW 22.5 H (11.5-15.5) % Plt Count 12 L* (150-450) k/uL Lymphocytes # 0.6 L (1.0-4.8) k/uL ABG pO2 (83-108) mmHg ABG HCO3 (21-25) mmol/L ABG Total CO2 (19-24) mmol/L ABG O2 Saturation (94-97) % Sodium 136 L (137-145) mmol/L BUN 97 H (7-17) mg/dL Glucose 194 H (74-99) mg/dL POC Glucose (mg/dL) 237 H (70-110) mg/dL Calcium 8.0 L (8.4-10.2) mg/dL Triglycerides (0.00-149.00) mg/dL 09/09/22 09/09/22 Range/Units 04:24 05:45 RBC (3.80-5.40) m/uL Hgb (11.4-16.0) gm/dL Hct (34.0-46.0) % RDW (11.5-15.5) % Plt Count (150-450) k/uL Lymphocytes # (1.0-4.8) k/uL ABG pO2 132 H (83-108) mmHg ABG HCO3 26 H (21-25) mmol/L ABG Total CO2 27 H (19-24) mmol/L ABG O2 Saturation 99.1 H (94-97) % Sodium (137-145) mmol/L BUN (7-17) mg/dL Glucose (74-99) mg/dL POC Glucose (mg/dL) 234 H (70-110) mg/dL Calcium (8.4-10.2) mg/dL Triglycerides (0.00-149.00) mg/dL Assessment and Plan (1) Thrombocytopenia Narrative/Plan: Platelets are stable at 12,000 today. No obvious bleeding. Case discussed with Barbara ESCOBEDO. Workup for DIC is negative. There is no evidence of another microangiopathic process such as TTP. Hemoglobin has remained stable, and creatinine has actually improved while platelets have diminished. - Most likely expiration at this time is medication effect superimposed on ongoing increased consumption from underlying inflammation. The patient is on 4 medications that can drop her platelets, including Zyvox and Zeraxa, Dilantin, and Keppra. Posttransfusion purpura is also possible, given the timeline from her previous transfusion. However typically in that situation the drop in platelet counts is abrupt. In her case this was somewhat gradual. Therefore the latter is less likely, but are not ruled out. The management however is the same, which is supportive transfusions until the underlying condition resolves by itself. - As long as the patient is not having any bleeding, it is reasonable to continue her medications if you felt to be necessary for her other medical issues, and maintain platelets at greater than 10,000 with supportive transfusions when necessary. - Discuss with nursing that the patient is not a candidate for any anticoagulation, even at prophylactic doses, antiplatelet agents, or NSAIDs Current Visit: Yes Status: Acute Priority: High Code(s): D69.6 - THROMBOCYTOPENIA, UNSPECIFIED SNOMED Code(s): 440855433 Plan: Defer to the admitting service and multiple other consultants for management of her multiple medical problems. Prognosis is guarded.
[2022-09-09] MEDS: levETIRAcetam IV 1,000 MG in SALINE 1 100ML.BAG IVPB SCH ×2 (08:18→21:11)
[2022-09-09] MEDS: FUROSEMIDE 10 MG/ML 4 ML VIAL IV SCH ×2 (08:19→21:10)
[2022-09-09] MEDS: AMIODARONE 200 MG TAB PO SCH ×2 (08:19→21:10)
[2022-09-09] MEDS: MIDODRINE 5 MG TAB PO SCH ×3 (08:19→16:40)
[2022-09-09] MEDS: PANTOPRAZOLE 40 MG/10 ML VIAL IVP SCH (08:19)
[2022-09-09] MEDS: ALBUTEROL NEBULIZED 2.5 MG/3 ML INHALATION SCH ×4 (08:20→20:56)
[2022-09-09] MEDS: IPRATROPIUM 0.5 MG/2.5 ML NEBU INHALATION SCH ×4 (08:20→20:56)
[2022-09-09 08:29] LABS: Glucose,Whole Blood 182 mg/dL (70-110)
[2022-09-09] MEDS: LACOSAMIDE IV 150 MG in SODIUM CHLORIDE 0.9% 50 ML IVPB SCH ×2 (08:36→21:11)
[2022-09-09] MEDS: metOLazone 5 MG TAB PO SCH ×2 (08:37→21:12)
--- NOTE | 2022-09-09 09:19 | P.PN ---
Subjective Principal diagnosis: This is a 87-year-old female seen in consultation because of acute kidney injury secondary to sepsis with enterococcus bacteremia, enterococcus and pseudomonas UTI. She was admitted on 08/08/2022 more than a month ago She remains on the ventilator, additionally has severe thrombocytopenia possibly from medications, all the fingertips and toe tips or showing signs of severe ischemia with cyanosis and impending gangrene. She is grossly edema is History of present illness: Patient is a 87-year-old female seen in consultation for acute kidney injury. Patient's creatinine in June 2022 was as low as 0.84. This admission and was elevated at 1.5 and is up at 2.68 today. Patient presented to the hospital on 08/08/2022 due to shortness of breath. Patient had a syncopal episode while she was on the toilet. Patient was brought to the hospital by the EMS. Patient was transferred to the ICU early this morning due to hypotension. Patient has received 4.5 L of normal saline bolus in the last 24 hours. She was switched over to bicarb drip this morning due to severe acidosis. Potassium was 6.3 as morning which was medically treated. Patient is currently on Levophed as well as vasopressin. Despite receiving IV Lasix patient's urine output remains low. Patient has history of diabetes. She was taking metformin outpatient which is currently held. I don't see any nonsteroidals in her home medication list. Case discussed with the daughter was present at bedside. Objective - Vital Signs Vital signs: Vital Signs Temp 97.8 F 09/09/22 08:00 Pulse 122 H 09/09/22 08:21 Resp 28 H 09/09/22 08:00 BP 128/47 09/02/22 15:00 Pulse Ox 99 09/09/22 08:00 FiO2 40 09/09/22 08:21 Intake & Output 09/08/22 09/09/22 09/09/22 18:59 06:59 18:59 Intake Total 8175.153 0041.827 640.731 Output Total 945 1355 195 Balance 568.393 316.827 445.731 Weight 124.9 kg Intake: IV 936 1090 499 0.9% @ KVO 180 180 45 Anidulafungin 100 mg In 130 100 Sodium Chloride 0.9% 100 ml @ 84 mls/hr IVPB DAILY [facility] Rx#:[id number] Ceftolozane/Tazobactam 1. 100 100 100 5 gm In Sodium Chloride 0 .9% 100 ml @ 100 mls/hr IV Q8HR [facility] Rx#:[id number] Fat Emulsion 20% 250 ml 84 In Empty Bag 1 bag @ 21 mls/hr IV TuFr [facility] Rx#: [id number] Lacosamide IV 150 mg In 50 50 Sodium Chloride 0.9% 50 ml @ 100 mls/hr IVPB BID [facility] Rx#:[id number] Mvi, Adult No.4 with Vit 390 390 195 K 10 ml Trace (Conc-1Ml/ Dose) 1 ml Potassium Phosphate 9 mmol Sodium Acetate 30 meq Potassium Chloride 80 meq Magnesium Sulfate gm 1 gm Sodium Chloride 4Meq/ml Vial 100 meq Calcium Gluconate 3 gm In Amino Acids 5 %/ Dextrose 20 % 1,000 ml @ 65 mls/hr IV .BY DURATION [facility] Rx#:[id number] Normal Saline: Pressure 36 36 9 Bag Phenytoin Sodium Inj 300 50 mg In Sodium Chloride 0.9 % 50 ml @ 80 mls/hr IVPB Q12H [facility] Rx#:[id number] levETIRAcetam IV 1,000 mg 100 100 100 In Saline 1 100ml.bag @ 400 mls/hr IVPB Q12HR [facility] Rx#:[id number] Intake, IV Titration 577.393 221.827 51.731 Amount Anidulafungin 100 mg In 130 Sodium Chloride 0.9% 100 ml @ 84 mls/hr IVPB DAILY [facility] Rx#:[id number] Fat Emulsion 20% 250 ml 63 In Empty Bag 1 bag @ 21 mls/hr IV TuFr [facility] Rx#: [id number] Furosemide 100 mg In 200 100 Sodium Chloride 0.9% 90 ml @ 10 MG/HR 10 mls/hr IV .Q10H [facility] Rx#: [id number] Norepinephrine 32 mg In 66.889 121.827 51.731 Sodium Chloride 0.9% 218 ml @ 0.5 MCG/KG/MIN 25. 547 mls/hr IV .Q9H48M [facility] Rx#:[id number] Vasopressin 60 unit In 117.504 Sodium Chloride 0.9% 150 ml @ 0.04 UNITS/MIN 6.12 mls/hr IV .Q24H [facility] Rx#: [id number] Tube Feeding 240 90 Other 120 Output: Urine 945 530 195 Stool 825 Other: Voiding Method Indwelling Catheter Indwelling Catheter Indwelling Catheter ABP, PAP, CO, CI - Last Documented Arterial Blood Pressure 127/52 On examination she is on the ventilator, obtunded. Pale. Edema is Lungs are clear to auscultation Heart sounds unremarkable Abdomen is nontender Extremity exam reveals all the fingertips and toes are cyanosed and may be impending gangrene. She has significant anasarca and neurologically obtunded - Labs CBC & Chem 7: 09/09/22 04:19 09/09/22 04:19 Labs: Abnormal Lab Results - Last 24 Hours (Table) 09/08/22 09/08/22 09/08/22 Range/Units 04:44 12:05 16:12 RBC (3.80-5.40) m/uL Hgb (11.4-16.0) gm/dL Hct (34.0-46.0) % RDW (11.5-15.5) % Plt Count (150-450) k/uL Lymphocytes # (1.0-4.8) k/uL ABG pO2 (83-108) mmHg ABG HCO3 (21-25) mmol/L ABG Total CO2 (19-24) mmol/L ABG O2 Saturation (94-97) % Sodium (137-145) mmol/L BUN (7-17) mg/dL Glucose (74-99) mg/dL POC Glucose (mg/dL) 137 H 48 L (70-110) mg/dL Calcium (8.4-10.2) mg/dL Triglycerides 197.00 H (0.00-149.00) mg/dL 09/08/22 09/09/22 09/09/22 Range/Units 16:13 02:31 04:19 RBC (3.80-5.40) m/uL Hgb (11.4-16.0) gm/dL Hct (34.0-46.0) % RDW (11.5-15.5) % Plt Count (150-450) k/uL Lymphocytes # (1.0-4.8) k/uL ABG pO2 (83-108) mmHg ABG HCO3 (21-25) mmol/L ABG Total CO2 (19-24) mmol/L ABG O2 Saturation (94-97) % Sodium 136 L (137-145) mmol/L BUN 97 H (7-17) mg/dL Glucose 194 H (74-99) mg/dL POC Glucose (mg/dL) 48 L 166 H (70-110) mg/dL Calcium 8.0 L (8.4-10.2) mg/dL Triglycerides (0.00-149.00) mg/dL 09/09/22 09/09/22 09/09/22 Range/Units 04:19 04:23 04:24 RBC 2.67 L (3.80-5.40) m/uL Hgb 7.3 L (11.4-16.0) gm/dL Hct 23.5 L (34.0-46.0) % RDW 22.5 H (11.5-15.5) % Plt Count 12 L* (150-450) k/uL Lymphocytes # 0.6 L (1.0-4.8) k/uL ABG pO2 (83-108) mmHg ABG HCO3 (21-25) mmol/L ABG Total CO2 (19-24) mmol/L ABG O2 Saturation (94-97) % Sodium (137-145) mmol/L BUN (7-17) mg/dL Glucose (74-99) mg/dL POC Glucose (mg/dL) 237 H 234 H (70-110) mg/dL Calcium (8.4-10.2) mg/dL Triglycerides (0.00-149.00) mg/dL 09/09/22 09/09/22 Range/Units 05:45 08:27 RBC (3.80-5.40) m/uL Hgb (11.4-16.0) gm/dL Hct (34.0-46.0) % RDW (11.5-15.5) % Plt Count (150-450) k/uL Lymphocytes # (1.0-4.8) k/uL ABG pO2 132 H (83-108) mmHg ABG HCO3 26 H (21-25) mmol/L ABG Total CO2 27 H (19-24) mmol/L ABG O2 Saturation 99.1 H (94-97) % Sodium (137-145) mmol/L BUN (7-17) mg/dL Glucose (74-99) mg/dL POC Glucose (mg/dL) 182 H (70-110) mg/dL Calcium (8.4-10.2) mg/dL Triglycerides (0.00-149.00) mg/dL Assessment and Plan Assessment: Impression 1. Acute kidney injury secondary to prerenal from fungemia, gram-negative bacteremia on 08/08/2022 and recurrence of enterococcus bacteremia on 08/23/2022, additionally Pseudomonas and enterococcal UTI on 08/08/2022. Good urine output and creatinine has improved and is less than once a last 4 days. Today's creatinine 0.98 2. Ventilator dependent respiratory failure, stable 40% FiO2 3. Fingertips and toe tips ischemic 4. Thrombus cytopenia secondary to most likely medications and sepsis 5. Atrial fibrillation Recommendation 1. Maintain current Lasix 40 mg every 12 hours as well as the metabolism 5 mg twice a day because of significant edema and blood pressure is fairly stable 2. Monitor labs 3. Monitor I's and O's.
[2022-09-09 09:49] LABS: % Iron Saturation 27.25 (12.00-45.00)
--- NOTE | 2022-09-09 10:19 | P.PN ---
Subjective Progress Note Date: 09/09/22 Principal diagnosis: Sepsis/septic shock Patient is a 87-year-old female with multiple comorbidities presented to the hospital with a syncopal episode weakness subsequently hypotension, sepsis requiring transfer to the ICU and intubation on the vent. She patient did have a CT of abdominal pelvis completed on 08/20/2022 with evidence of pneumoperitoneum Gen. surgery discussed with the family currently being treated medically On today's evaluation that is 08/30/2022, the patient remains to be afebrile, the patient remains to be on pressor support to maintain her blood pressure, the patient FiO2 is stable at 40 %, no purulent secretions through the ET , patient did have NG to suction,, patient did have a fecal management system for her diarrhea, patient did have significant drop in the platelets count however no bleeding has been reported Objective - Vital Signs Vital signs: Vital Signs Temp 98.5 F 09/09/22 04:00 Pulse 122 H 09/09/22 08:21 Resp 30 H 09/09/22 07:00 BP 128/47 09/02/22 15:00 Pulse Ox 99 09/09/22 07:00 FiO2 40 09/09/22 08:21 Intake & Output 09/08/22 09/09/22 09/09/22 18:59 06:59 18:59 Intake Total 3166.998 9468.827 51.731 Output Total 945 1355 Balance 568.393 316.827 51.731 Weight 124.9 kg Intake: IV 936 1090 0.9% @ KVO 180 180 Anidulafungin 100 mg In 130 100 Sodium Chloride 0.9% 100 ml @ 84 mls/hr IVPB DAILY [facility] Rx#:[id number] Ceftolozane/Tazobactam 1. 100 100 5 gm In Sodium Chloride 0 .9% 100 ml @ 100 mls/hr IV Q8HR [facility] Rx#:[id number] Fat Emulsion 20% 250 ml 84 In Empty Bag 1 bag @ 21 mls/hr IV TuFr [facility] Rx#: [id number] Lacosamide IV 150 mg In 50 Sodium Chloride 0.9% 50 ml @ 100 mls/hr IVPB BID [facility] Rx#:[id number] [facility], Adult No.4 with Vit 390 390 K 10 ml Trace (Conc-1Ml/ Dose) 1 ml Potassium Phosphate 9 mmol Sodium Acetate 30 meq Potassium Chloride 80 meq Magnesium Sulfate gm 1 gm Sodium Chloride 4Meq/ml Vial 100 meq Calcium Gluconate 3 gm In Amino Acids 5 %/ Dextrose 20 % 1,000 ml @ 65 mls/hr IV .BY DURATION [facility] Rx#:[id number] Normal Saline: Pressure 36 36 Bag Phenytoin Sodium Inj 300 50 mg In Sodium Chloride 0.9 % 50 ml @ 80 mls/hr IVPB Q12H [facility] Rx#:[id number] levETIRAcetam IV 1,000 mg 100 100 In Saline 1 100ml.bag @ 400 mls/hr IVPB Q12HR [facility] Rx#:[id number] Intake, IV Titration 577.393 221.827 51.731 Amount Anidulafungin 100 mg In 130 Sodium Chloride 0.9% 100 ml @ 84 mls/hr IVPB DAILY [facility] Rx#:[id number] Fat Emulsion 20% 250 ml 63 In Empty Bag 1 bag @ 21 mls/hr IV TuFr [facility] Rx#: [id number] Furosemide 100 mg In 200 100 Sodium Chloride 0.9% 90 ml @ 10 MG/HR 10 mls/hr IV .Q10H [facility] Rx#: [id number] Norepinephrine 32 mg In 66.889 121.827 51.731 Sodium Chloride 0.9% 218 ml @ 0.5 MCG/KG/MIN 25. 547 mls/hr IV .Q9H48M [facility] Rx#:[id number] Vasopressin 60 unit In 117.504 Sodium Chloride 0.9% 150 ml @ 0.04 UNITS/MIN 6.12 mls/hr IV .Q24H [facility] Rx#: [id number] Tube Feeding 240 Other 120 Output: Urine 945 530 Stool 825 Other: Voiding Method Indwelling Catheter Indwelling Catheter ABP, PAP, CO, CI - Last Documented Arterial Blood Pressure 125/50 - Exam GENERAL DESCRIPTION: An elderly female intubated on the vent RESPIRATORY SYSTEM: Unlabored breathing , decreased breath sounds at bases HEART: S1 S2 regular rate and rhythm , ABDOMEN: Soft , abdominal distention EXTREMITIES: Diffuse swelling bilateral lower extremity no redness - Labs CBC & Chem 7: 09/09/22 04:19 09/09/22 04:19 Labs: Abnormal Lab Results - Last 24 Hours (Table) 09/08/22 09/08/22 09/08/22 Range/Units 04:44 12:05 16:12 RBC (3.80-5.40) m/uL Hgb (11.4-16.0) gm/dL Hct (34.0-46.0) % RDW (11.5-15.5) % Plt Count (150-450) k/uL Lymphocytes # (1.0-4.8) k/uL ABG pO2 (83-108) mmHg ABG HCO3 (21-25) mmol/L ABG Total CO2 (19-24) mmol/L ABG O2 Saturation (94-97) % Sodium (137-145) mmol/L BUN (7-17) mg/dL Glucose (74-99) mg/dL POC Glucose (mg/dL) 137 H 48 L (70-110) mg/dL Calcium (8.4-10.2) mg/dL Triglycerides 197.00 H (0.00-149.00) mg/dL 09/08/22 09/09/22 09/09/22 Range/Units 16:13 02:31 04:19 RBC (3.80-5.40) m/uL Hgb (11.4-16.0) gm/dL Hct (34.0-46.0) % RDW (11.5-15.5) % Plt Count (150-450) k/uL Lymphocytes # (1.0-4.8) k/uL ABG pO2 (83-108) mmHg ABG HCO3 (21-25) mmol/L ABG Total CO2 (19-24) mmol/L ABG O2 Saturation (94-97) % Sodium 136 L (137-145) mmol/L BUN 97 H (7-17) mg/dL Glucose 194 H (74-99) mg/dL POC Glucose (mg/dL) 48 L 166 H (70-110) mg/dL Calcium 8.0 L (8.4-10.2) mg/dL Triglycerides (0.00-149.00) mg/dL 09/09/22 09/09/22 09/09/22 Range/Units 04:19 04:23 04:24 RBC 2.67 L (3.80-5.40) m/uL Hgb 7.3 L (11.4-16.0) gm/dL Hct 23.5 L (34.0-46.0) % RDW 22.5 H (11.5-15.5) % Plt Count 12 L* (150-450) k/uL Lymphocytes # 0.6 L (1.0-4.8) k/uL ABG pO2 (83-108) mmHg ABG HCO3 (21-25) mmol/L ABG Total CO2 (19-24) mmol/L ABG O2 Saturation (94-97) % Sodium (137-145) mmol/L BUN (7-17) mg/dL Glucose (74-99) mg/dL POC Glucose (mg/dL) 237 H 234 H (70-110) mg/dL Calcium (8.4-10.2) mg/dL Triglycerides (0.00-149.00) mg/dL 09/09/22 09/09/22 Range/Units 05:45 08:27 RBC (3.80-5.40) m/uL Hgb (11.4-16.0) gm/dL Hct (34.0-46.0) % RDW (11.5-15.5) % Plt Count (150-450) k/uL Lymphocytes # (1.0-4.8) k/uL ABG pO2 132 H (83-108) mmHg ABG HCO3 26 H (21-25) mmol/L ABG Total CO2 27 H (19-24) mmol/L ABG O2 Saturation 99.1 H (94-97) % Sodium (137-145) mmol/L BUN (7-17) mg/dL Glucose (74-99) mg/dL POC Glucose (mg/dL) 182 H (70-110) mg/dL Calcium (8.4-10.2) mg/dL Triglycerides (0.00-149.00) mg/dL Assessment and Plan (1) Sepsis Current Visit: Yes Status: Acute Code(s): A41.9 - SEPSIS, UNSPECIFIED ORGANISM SNOMED Code(s): 40164156 Plan: 1patient was in the hospital with sepsis and septic shock initially concern for multidrug-resistant Pseudomonas UTI, patient also have a candidemia secondary to possible abdominal source, patient did have evidence of colonic perforation and peritonitis being managed medically as the patient considered to be high risk for any surgical procedure , will continue with Zerbexa and Eraxis 3patient did have persistent VRE bacteremia and could be related to the multiple lines , patient did have a repeat blood cultures on 08/29/2022 those are negative so far, patient's sputum was positive for MRSA, patient has received more than 2 weeks of IV Zyvox which should be more than enough for the bacteremia as well as pneumonia now with significant thrombocytopenia could be related to Zyvox we will go ahead and discontinue Zyvox and monitor his clinical course closely, detailed discussion with the daughter at the bedside Time with Patient: Less than 30
--- NOTE | 2022-09-09 10:38 | P.PN ---
Subjective Progress Note Date: 09/09/22 09/09/2022: This is a telemedicine neurology follow performed today on 09/09/2022. Patient's daughter was present today. She mentions that patient is no change. Mail Handler has seen the patient, and feels thrombocytopenia is from antibiotics. Recommended to stop some antibiotics. Patient's platelets today again is 12,000. No changes clinically otherwise. 09/08/2022: Patient was seen for a follow-up. Patient's and patient's daughter were both present today. I had an extremely prolonged discussion for almost over 40 minutes discussing about patient's condition, prognosis. Patient's continues to believe that there is hope she will come around and wake up. Patient currently on norepinephrine 0.14 mcg/kg/m infusion. 09/07/2022: Patient clinically unchanged. Patient's daughter was present today. Some concern raised about repeating EEG. Patient is having some periodic eye twitching, and chin twitching, which is concerning for seizures. 09/06/2022: Patient was seen for a follow-up. Patient's daughter was present today. Patient appears more edematous, has developed a couple 1-2 inch big b listers on her lower leg, with serous fluid inside. Patient continues to be on Levophed 0.5 mcg/kg/m and also on norepinephrine 0.04 units per minute. Patient's fingertips hypoxic much worse particularly in the right with significant redness at the borders, with demarcation. The left fingertips a ppears slightly better. Does have gotten worse. Patient has developed blisters. 09/05/2022: Patient was seen for a follow-up. Patient's and their daughter was present today. Patient is essentially unchanged. Patient's believes that she is responding to him. Patient sometimes has a slight twitch of the chin or sometimes twitches of her eyes, which he believes is response. He tried multiple times to get a response from the patient in front of me, but there was no response at all. Some twitches were reflexive, could be epileptic as well. 09/04/2022: Patient was seen for a follow-up. Patient's daughter was present. Patient was seen by Dr. Edouard Peres in the previous 7 days. Please refer to his notes for details. Patient at present on Levophed 0.12 g, and vasopressin 0.04 g. Patient is of Versed and Ativan since 08/30/2022. There is no obvious physical seizure activity. Patient had numerous EEGs, which continues to show subclinical status. Patient's family believes that she is responding, as her chin moved slightly and she is slightly moves her eyes with her lids closed. She may still slightly open her eyes, which appears reflexive rather than involving treat appears. No seizure-like activity noticed at this time either. Patient continues to have severe blackening of the fingertips and the toes, and some sloughing of the skin of the toes. 08/27/2022: Patient was seen for a follow-up. Patient continues to be significantly encephalopathic. No obvious shoulder twitching on the right side was observed. Patient currently on Versed drip 7 mg per hour. Also on other m edications as mentioned from yesterday. Patient has tracheostomy. Awaiting PEG placement. Patient currently on Levophed at 36 mcg/m(0.25 g microgram per minute), and vasopressin 0.02 units per minute. 08/26/2022: Patient was seen for a follow-up. Patient is clinically unchanged. However the seizure-like activity involving right shoulder has completely resolved. Patient currently on Versed 7 mg/h drip. Also on amiodarone, norepinephrine 0.47 mcg/mg per hour, vasopressin 0.04 units per minute. Also on bicarbonate drip. Patient has not had PEG tube placed yet. Patient's believes that when the PEG tube is placed, she will get nutrition and she will get better. Also discussed with patient's daughter and her , who was sitting in the waiting area. Patient's also believes the seizures are related to issues with the lower back region. 08/25/2022: Patient was seen for a follow-up. Patient's and patient's daughter were both present. Patient continues to be comatose. She has intermittent rhythmic twitching of the right shoulder. Patient is already on high dose Keppra, Vimpat adjusted to her renal functions, and Versed drip. Patient already has received Dilantin 1 g IV PB and she is still twitching in the right shoulder. Dilantin level came as 4.5. Patient will receive another loading dose of Dilantin 1 g. Target Dilantin level 12-20. Patient's toes are getting more dusky. Patient has developed some blisters, but that happened before she received Dilantin, therefore not related to Dilantin ALLERGY. Patient has generalized anasarca. 08/24/2022: Patient was seen for a follow-up. Patient is undergoing EEG at this time. Patient continues to have PLEDS. Patient was given Ativan 2 mg without much improvement, then repeated at another 2 mg Ativan. Patient subsequently received Versed 5 mg IV push without improvement, started on Versed drip 5 mg per hour. Patient states on pressors with vasopressin and Levophed. Patient continues to be comatose. Occasional twitching of the right shoulder noticed. I had discussed case with Dr. Hagen yesterday after he reported abnormal prolonged EEG about transfer patient to [facility], but he mentioned that beds were not available. 08/23/2022: Patient was seen for a follow-up. Patient is intubated, not on any sedation. She is on full pressors with Levophed and vasopressin. Also on 3 antibiotics, anti-seizure medications including Keppra and Vimpat. Patient had sporadic seizure-like activity with facial twitching. No definite arm twitching noted. Episode lasted for about 30 minutes. At present there is no twitching noticeable. Patient's and grandchildren were present today. 08/22/2022: Patient was seen for a follow-up. Patient's daughter was also present today. Patient recently had temperature of 100.3. About an hour prior to spiking temperature, patient had some facial twitching, with jaw opening and closing, that lasted for half an hour. No upper extremity movement was noted at that time. Patient continues to be on Keppra 750 mg twice a day. Patient continues to be on high-dose pressors. Patient at present is no code, but full medical treatment. 08/21/2022: Patient initially seen by Dr. Edouard Peres. Please refer to his note for details. Patient is an 87-year-old female with altered mental status. Patient has septic encephalopathy. Patient had a seizure-like activity yesterday at 1:15 PM with head jerking and left arm jerking. Patient was given Ativan 4 mg, and the seizure-like stopped. Patient was given a loading dose of Keppra 1000 mg IV and then maintained on 500 mg twice a day. Patient had again seizure-like activity at 3 AM lasted for 45 minutes and then 5 AM and patient was given another loading dose of 500 mg Keppra. Nurse called me today at around 7:30 AM. It lasted for 20-30 minutes. Patient was again given Valium 4 mg in the seizure- like activity resolved. Patient was started on Vimpat 100 mg twice a day IV PB. EEG was performed today, which was abnormal sleep EEG due to background slowing of moderate degree. Some sharply contoured waves were seen in the left parietal region. No clear-cut epileptiform activity was seen. Objective - Vital Signs Vital signs: Vital Signs Temp 97.8 F 09/09/22 08:00 Pulse 122 H 09/09/22 08:21 Resp 28 H 09/09/22 08:00 BP 128/47 09/02/22 15:00 Pulse Ox 99 09/09/22 08:00 FiO2 40 09/09/22 08:21 Intake & Output 09/08/22 09/09/22 09/09/22 18:59 06:59 18:59 Intake Total 2864.444 8698.827 640.731 Output Total 945 1355 195 Balance 568.393 316.827 445.731 Weight 124.9 kg Intake: IV 936 1090 499 0.9% @ KVO 180 180 45 Anidulafungin 100 mg In 130 100 Sodium Chloride 0.9% 100 ml @ 84 mls/hr IVPB DAILY [facility] Rx#:[id number] Ceftolozane/Tazobactam 1. 100 100 100 5 gm In Sodium Chloride 0 .9% 100 ml @ 100 mls/hr IV Q8HR [facility] Rx#:[id number] Fat Emulsion 20% 250 ml 84 In Empty Bag 1 bag @ 21 mls/hr IV TuFr [facility] Rx#: [id number] Lacosamide IV 150 mg In 50 50 Sodium Chloride 0.9% 50 ml @ 100 mls/hr IVPB BID [facility] Rx#:[id number] Mvi, Adult No.4 with Vit 390 390 195 K 10 ml Trace (Conc-1Ml/ Dose) 1 ml Potassium Phosphate 9 mmol Sodium Acetate 30 meq Potassium Chloride 80 meq Magnesium Sulfate gm 1 gm Sodium Chloride 4Meq/ml Vial 100 meq Calcium Gluconate 3 gm In Amino Acids 5 %/ Dextrose 20 % 1,000 ml @ 65 mls/hr IV .BY DURATION [facility] Rx#:[id number] Normal Saline: Pressure 36 36 9 Bag Phenytoin Sodium Inj 300 50 mg In Sodium Chloride 0.9 % 50 ml @ 80 mls/hr IVPB Q12H [facility] Rx#:[id number] levETIRAcetam IV 1,000 mg 100 100 100 In Saline 1 100ml.bag @ 400 mls/hr IVPB Q12HR [facility] Rx#:[id number] Intake, IV Titration 577.393 221.827 51.731 Amount Anidulafungin 100 mg In 130 Sodium Chloride 0.9% 100 ml @ 84 mls/hr IVPB DAILY [facility] Rx#:[id number] Fat Emulsion 20% 250 ml 63 In Empty Bag 1 bag @ 21 mls/hr IV TuFr [facility] Rx#: [id number] Furosemide 100 mg In 200 100 Sodium Chloride 0.9% 90 ml @ 10 MG/HR 10 mls/hr IV .Q10H [facility] Rx#: [id number] Norepinephrine 32 mg In 66.889 121.827 51.731 Sodium Chloride 0.9% 218 ml @ 0.5 MCG/KG/MIN 25. 547 mls/hr IV .Q9H48M [facility] Rx#:[id number] Vasopressin 60 unit In 117.504 Sodium Chloride 0.9% 150 ml @ 0.04 UNITS/MIN 6.12 mls/hr IV .Q24H [facility] Rx#: [id number] Tube Feeding 240 90 Other 120 Output: Urine 945 530 195 Stool 825 Other: Voiding Method Indwelling Catheter Indwelling Catheter Indwelling Catheter ABP, PAP, CO, CI - Last Documented Arterial Blood Pressure 127/52 - Exam 09/09/2022: Patient is laying in the bed, comatose with GCS of 3. Detail examination deferred. 09/08/2022: Patient is an elderly female, who is comatose with GCS of 3. Patient is not on any sedation. Patient is off Ativan/Versed since 07/2022. Patient continues to be on pressors. Patient does not respond to painful stimuli or calling out loudly. No focal seizure noted involving right shoulder. Patient appears to have less frequent twitches of her eyes and sometimes of the chin as compared to yesterday. It appears seizure phenomenon. Pupils are equal, round and reacting bilaterally. Oculocephalics are absent, corneals absent. Patient sometimes minimally opens her eyes, but the gaze is more in front. Patient has extremely weak gag if at all. No cough. Reflexes are absent. Patient has significant peripheral edema. Patient's fingers and toes are dusky, cyanotic, now turning black, right side worse than left. - Labs CBC & Chem 7: 09/09/22 04:19 09/09/22 04:19 Labs: Abnormal Lab Results - Last 24 Hours (Table) 09/08/22 09/08/22 09/08/22 Range/Units 04:44 12:05 16:12 RBC (3.80-5.40) m/uL Hgb (11.4-16.0) gm/dL Hct (34.0-46.0) % RDW (11.5-15.5) % Plt Count (150-450) k/uL Lymphocytes # (1.0-4.8) k/uL ABG pO2 (83-108) mmHg ABG HCO3 (21-25) mmol/L ABG Total CO2 (19-24) mmol/L ABG O2 Saturation (94-97) % Sodium (137-145) mmol/L BUN (7-17) mg/dL Glucose (74-99) mg/dL POC Glucose (mg/dL) 137 H 48 L (70-110) mg/dL Calcium (8.4-10.2) mg/dL Triglycerides 197.00 H (0.00-149.00) mg/dL 09/08/22 09/09/22 09/09/22 Range/Units 16:13 02:31 04:19 RBC (3.80-5.40) m/uL Hgb (11.4-16.0) gm/dL Hct (34.0-46.0) % RDW (11.5-15.5) % Plt Count (150-450) k/uL Lymphocytes # (1.0-4.8) k/uL ABG pO2 (83-108) mmHg ABG HCO3 (21-25) mmol/L ABG Total CO2 (19-24) mmol/L ABG O2 Saturation (94-97) % Sodium 136 L (137-145) mmol/L BUN 97 H (7-17) mg/dL Glucose 194 H (74-99) mg/dL POC Glucose (mg/dL) 48 L 166 H (70-110) mg/dL Calcium 8.0 L (8.4-10.2) mg/dL Triglycerides (0.00-149.00) mg/dL 09/09/22 09/09/22 09/09/22 Range/Units 04:19 04:23 04:24 RBC 2.67 L (3.80-5.40) m/uL Hgb 7.3 L (11.4-16.0) gm/dL Hct 23.5 L (34.0-46.0) % RDW 22.5 H (11.5-15.5) % Plt Count 12 L* (150-450) k/uL Lymphocytes # 0.6 L (1.0-4.8) k/uL ABG pO2 (83-108) mmHg ABG HCO3 (21-25) mmol/L ABG Total CO2 (19-24) mmol/L ABG O2 Saturation (94-97) % Sodium (137-145) mmol/L BUN (7-17) mg/dL Glucose (74-99) mg/dL POC Glucose (mg/dL) 237 H 234 H (70-110) mg/dL Calcium (8.4-10.2) mg/dL Triglycerides (0.00-149.00) mg/dL 09/09/22 09/09/22 Range/Units 05:45 08:27 RBC (3.80-5.40) m/uL Hgb (11.4-16.0) gm/dL Hct (34.0-46.0) % RDW (11.5-15.5) % Plt Count (150-450) k/uL Lymphocytes # (1.0-4.8) k/uL ABG pO2 132 H (83-108) mmHg ABG HCO3 26 H (21-25) mmol/L ABG Total CO2 27 H (19-24) mmol/L ABG O2 Saturation 99.1 H (94-97) % Sodium (137-145) mmol/L BUN (7-17) mg/dL Glucose (74-99) mg/dL POC Glucose (mg/dL) 182 H (70-110) mg/dL Calcium (8.4-10.2) mg/dL Triglycerides (0.00-149.00) mg/dL Assessment and Plan Assessment: * Electographic partial status epilepticus, severe, totally medically intractable. On keppra, Vimpat and Dilantin. Also has tried IV versed and IV ativan, propofol without improvement. IV sedation has been off since 08/30/22. * Altered mental status multifactorial as mentioned below. Partial status, septic encephalopathy, electrolyte imbalance, renal failure, sepsis, and hepatic encephalopathy, cannot rule out intracranial infection. * Acute thrombocytopenia, with platelets of 12,000 * Perforated viscus with pneumoperitoneum. * Septicemia, with leukocytosis and blood culture persistently positive with enterococcus faecium. Blood cultures positive as of 08/23/2022. Most recent blood culture 08/29/2022 is negative. White cells back to normal. * Hepatic encephalopathy with initial elevated ammonia 214, resolved. * Septic shock requiring high-dose pressors and seems has urinary tract infection with urine culture positive for Enterococcus faecalis and Pseudomonas aeruginosa as well as systemic candidiasis Atrial fibrillation on eliquis (which has hx of afib) , currently on hold. Acute on chronic hypoxemic respiratory failure secondary to diastolic congestive heart failure requiring intubation mechanical ventilation Acute on chronic kidney disease History of TIAs/stroke History of coronary artery disease with stent Hypertension Hyperlipidemia Diabetes mellitus Anemia Hypocalcemia, resolved Plan: * Patient probably continues to have some seizure activity with eye twitching sporadically and chin twitch. Her previous EEGs continues to show subclinical partial status. Patient is off Versed and Ativan drip. She continues to be on 3 antiepileptic medications as mentioned below. Patient's daughter believes including her dad, that patient is showing some meaningful response, which I doubt. Family does not want any more EEGs at this time. They're comfortable as long as patient is not exhibiting overt seizure activity. Patient has occasional twitch of the chin, or the eye, which could be still possibly ictal phenomenon. * Patient already on high dose Vimpat 150 mg twice a day, Keppra 1000 mg twice a day (both of them adjusted for current renal functions) and Dilantin 300 mg twice a day. Dilantin level was checked 8.8 however her albumin is very low 1.8. Therefore adjusted Dilantin level is 14.8 which is completely therapeutic. Keppra level 68.9 (3-60). Cannot give Depakote because of hyperammonemia. * Continue Ativan 1-2 mg every 4 hours when necessary seizure. * Routine EEG 09/01/2022 was abnormal. Patient continues to have burst suppression with discharges. 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 The patient's suppression is likely due to status epilepticus BS anoxic brain injury. The background slowing is suggestive of severe encephalopathy. The patient's EEG seems to be about the same as compared to the prior study. * Prolonged 2.5 hours EEG on 08/24/2022 was abnormal with evidence of runs of 1 Hz LPDs plus there was lateralized periodic discharges, sharp and slow and poly-sharp and slow waves over the left parietal region with spread more ante riorly. There are also some discharges semi-periodic LPDs over the right posterior quadrants. Exact cause remains uncertain. * Repeat CT head 09/03/2022 revealed cerebral atrophy. No acute intracranial abnormality. I personally reviewed CT head, and agreed no acute process. * ID is also on board. Patient currently on Eraxis, Zerbaxa, Zyvox. Per ID, patient is already covered well for meningitis. * Patient's initial Ammonia was 214. Most recent ammonia level 20 on 09/04/2022. Patient on lactulose. * CT abdomen revealed possibility of perforated viscus. Surgery on board. Patient was considered not a candidate for surgery because of hemodynamic instability. * Patient is still on pressors. Patient is showing blackening of the digits of her hands and feet. * Hypocalcemia, resolved. * We'll defer the rest of medical management to primary and ICU team * Discussed with patient's daughter today.
[2022-09-09 10:48] LABS: Hepatitis A Antibody IgM Nonreactive (Nonreactive); Hepatitis B Core IgM Nonreactive (Nonreactive); Hepatitis B Surface Antigen Nonreactive (Nonreactive); Hepatitis C IgG Antibody Nonreactive (Nonreactive)
[2022-09-09 11:52] LABS: Glucose,Whole Blood 166 mg/dL (70-110)
[2022-09-09 16:47] LABS: Glucose,Whole Blood 136 mg/dL (70-110)
[2022-09-09] MEDS: VASOPRESSIN 60 UNIT in SODIUM CHLORIDE 0.9% 150 ML IV SCH (16:49)
[2022-09-09 20:36] LABS: Glucose,Whole Blood 189 mg/dL (70-110)
[2022-09-09] MEDS: INSULIN DETEMIR (LEVEMIR) 100 UNIT/ML SYR SQ SCH (21:11)
[2022-09-09] MEDS: POTASSIUM BICARBONATE/CIT AC 20 MEQ TABLET.EFF PO SCH (21:12)
[2022-09-10 00:48] LABS: Glucose,Whole Blood 244 mg/dL (70-110)
[2022-09-10] MEDS: INSULIN ASPART (NovoLOG) 100 UNIT/ML VIAL SQ SCH ×7 (00:51→23:01)
[2022-09-10] MEDS: ANIDULAFUNGIN 100 MG in SODIUM CHLORIDE 0.9% 100 ML IVPB SCH (04:36)
[2022-09-10 05:47] LABS: ABG Base Excess -0.7 mmol/L; ABG HCO3 25 mmol/L (21-25); ABG Oxygen Saturation 98.8 % (94-97); ABG PCO2 44 mmHg (35-45); ABG PH 7.36 (7.35-7.45); ABG PO2 126 mmHg (83-108); ABG TCO2 26 mmol/L (19-24); Allen Test Performed? Yes
[2022-09-10 06:36] LABS: Magnesium 2.3 mg/dL (1.6-2.3); Phosphorus 3.6 mg/dL (2.5-4.5)
[2022-09-10 06:37] LABS: Calcium 8.4 mg/dL (8.4-10.2)
[2022-09-10 06:38] LABS: Potassium 6.3 mmol/L (3.5-5.1)
[2022-09-10 06:56] LABS: Anisocytosis Moderate; Basophils % (A) 0 %; Eosinophils % (A) 0 %; HCT 22.7 % (34.0-46.0); Hypochromasia Moderate; Lymphocytes # (A) 0.8 k/uL (1.0-4.8); Lymphocytes % (A) 9 %; MCH 27.2 pg (25.0-35.0); MCHC 30.7 g/dL (31.0-37.0); MCV 88.5 fL (80.0-100.0); Macrocytosis Slight; Mean Platelet Volume 8.2; Monocytes # (A) 0.4 k/uL (0-1.0); Monocytes % (A) 4 %; Neutrophils # (A) 7.6 k/uL (1.3-7.7); Neutrophils % (A) 84 %; Poikilocytosis Slight; RBC 2.56 m/uL (3.80-5.40); RDW 22.5 % (11.5-15.5)
[2022-09-10 06:58] LABS: Platelet Count 6 k/uL (150-450)
[2022-09-10] MEDS ORDERED: SODIUM BICARB 8.4% 50 ML SYR (1 MEQ/ML) IV STA (06:58)
[2022-09-10] MEDS: NOREPINEPHRINE 32 MG in SODIUM CHLORIDE 0.9% 218 ML IV SCH ×2 (07:07→19:01)
[2022-09-10] MEDS ORDERED: CALCIUM GLUCONATE IN NACL 1 GM in SALINE 1 100ML.BAG IVPB ONE (07:30)
[2022-09-10] MEDS ORDERED: SODIUM ZIRCONIUM CYCLOSILICATE 10 GM PACKET PO ONE ×2 (07:30→19:18)
[2022-09-10] MEDS: FUROSEMIDE 10 MG/ML 4 ML VIAL IV SCH ×2 (07:46→20:04)
[2022-09-10] MEDS: metOLazone 5 MG TAB PO SCH ×2 (07:47→20:05)
[2022-09-10] MEDS: PANTOPRAZOLE 40 MG/10 ML VIAL IVP SCH (07:47)
[2022-09-10] MEDS: MIDODRINE 5 MG TAB PO SCH ×3 (07:47→16:42)
[2022-09-10] MEDS: AMIODARONE 200 MG TAB PO SCH ×2 (07:48→20:04)
[2022-09-10] MEDS ORDERED: SODIUM BICARB 8.4% 50 ML SYR (1 MEQ/ML) ONE (07:54)
--- NOTE | 2022-09-10 08:12 | XR ---
EXAMINATION TYPE: XR chest 1V portable DATE OF EXAM: 09/10/2022 6:06 AM COMPARISON: Chest radiographs from 09/05/2022 TECHNIQUE: XR chest 1V portable Portable AP radiograph of the chest. CLINICAL INDICATION:Female, 87 years old with history of pna, trach; FINDINGS: Lungs/Pleura: No evidence of focal consolidation or pneumothorax. Blunting of the costophrenic angles is present. Pulmonary vascularity: Unremarkable. Heart/mediastinum: Cardiomediastinal silhouette is unremarkable. Musculoskeletal: No acute osseous pathology. Other findings: None Lines/Tubes: Tracheostomy cannula tip projecting over the trachea. Interval placement of nasogastric and side-port projecting under the diaphragm. Left internal jugular central venous catheter with distal tip at the cavoatrial junction. IMPRESSION: 1. Stable support tubes and line 2. Bilateral probable pleural effusions are unchanged.
[2022-09-10] MEDS: levETIRAcetam IV 1,000 MG in SALINE 1 100ML.BAG IVPB SCH ×2 (08:23→19:03)
[2022-09-10] MEDS: CEFTOLOZANE/TAZOBACTAM 1.5 GM in SODIUM CHLORIDE 0.9% 100 ML IV SCH ×3 (08:23→23:45)
[2022-09-10 08:32] LABS: Glucose,Whole Blood 145 mg/dL (70-110)
[2022-09-10] MEDS: ALBUTEROL NEBULIZED 2.5 MG/3 ML INHALATION SCH ×4 (08:39→20:53)
[2022-09-10] MEDS: IPRATROPIUM 0.5 MG/2.5 ML NEBU INHALATION SCH ×4 (08:39→20:53)
[2022-09-10] MEDS: LACOSAMIDE IV 150 MG in SODIUM CHLORIDE 0.9% 50 ML IVPB SCH ×2 (08:47→19:48)
[2022-09-10] MEDS: 1: MVI, ADULT NO.4 WITH VIT K 10 ML, TRACE (CONC-1ML/DOSE) 1 ML, SODIUM ACETATE 30 MEQ, IV SCH ×14 (08:48→23:01)
[2022-09-10] MEDS: 1: MVI, ADULT NO.4 WITH VIT K 10 ML, TRACE (CONC-1ML/DOSE) 1 ML, POTASSIUM PHOSPHATE 9 M IV SCH ×9 (08:49)
--- NOTE | 2022-09-10 09:38 | P.PN ---
Subjective Progress Note Date: 09/10/22 Principal diagnosis: This is a 87-year-old female seen in consultation because of acute kidney injury secondary to sepsis with enterococcus bacteremia, enterococcus and pseudomonas UTI. She was admitted on 08/08/2022 more than a month ago She remains on the ventilator, additionally has severe thrombocytopenia possibly from medications, all the fingertips and toe tips or showing signs of severe ischemia with cyanosis and impending gangrene. She is grossly edematous This morning her urine output is down and blood pressure has been down. Small doses of levo fed. Creatinine went up from 0.98-1.11, urine output went down from 53 10 mL to 600 mL Potassium went up to 6.3 from 5 yesterday, with concurrent blood sugars report is 191 and 145. So there has been significant d eterioration History of present illness: Patient is a 87-year-old female seen in consultation for acute kidney injury. Patient's creatinine in June 2022 was as low as 0.84. This admission and was elevated at 1.5 and is up at 2.68 today. Patient presented to the hospital on 08/08/2022 due to shortness of breath. Patient had a syncopal episode while she was on the toilet. Patient was brought to the hospital by the EMS. Patient was transferred to the ICU early this morning due to hypotension. Patient has received 4.5 L of normal saline bolus in the last 24 hours. She was switched o cheryl to bicarb drip this morning due to severe acidosis. Potassium was 6.3 as morning which was medically treated. Patient is currently on Levophed as well as vasopressin. Despite receiving IV Lasix patient's urine output remains low. Patient has history of diabetes. She was taking metformin outpatient which is currently held. I don't see any nonsteroidals in her home medication list. Case discussed with the daughter was present at bedside. Objective - Vital Signs Vital signs: Vital Signs Temp 97.1 F L 09/10/22 08:00 Pulse 108 H 09/10/22 08:53 Resp 29 H 09/10/22 08:00 BP 112/61 09/10/22 08:00 Pulse Ox 100 09/10/22 08:00 FiO2 40 09/10/22 08:37 Intake & Output 09/09/22 09/10/22 09/10/22 17:59 06:59 18:59 Intake Total 555.539 Output Total 30 Balance 525.539 Intake: IV 354 0.9% @ KVO 30 Anidulafungin 100 mg In Sodium Chloride 0.9% 100 ml @ 84 mls/hr IVPB Q24H [facility] Rx#:[id number] Ceftolozane/Tazobactam 1. 100 5 gm In Sodium Chloride 0 .9% 100 ml @ 100 mls/hr IV Q8HR [facility] Rx#:[id number] Lacosamide IV 150 mg In 50 Sodium Chloride 0.9% 50 ml @ 100 mls/hr IVPB BID [facility] Rx#:[id number] Mvi, Adult No.4 with Vit 65 K 10 ml Trace (Conc-1Ml/ Dose) 1 ml Potassium Phosphate 9 mmol Sodium Acetate 30 meq Potassium Chloride 80 meq Magnesium Sulfate gm 1 gm Sodium Chloride 4Meq/ml Vial 100 meq Calcium Gluconate 3 gm In Amino Acids 5 %/ Dextrose 20 % 1,000 ml @ 65 mls/hr IV .BY DURATION [facility] Rx#:[id number] Normal Saline: Pressure 9 Bag Phenytoin Sodium Inj 300 mg In Sodium Chloride 0.9 % 50 ml @ 80 mls/hr IVPB Q12H [facility] Rx#:[id number] levETIRAcetam IV 1,000 mg 100 In Saline 1 100ml.bag @ 400 mls/hr IVPB Q12HR [facility] Rx#:[id number] Intake, IV Titration 201.539 Amount Ceftolozane/Tazobactam 1. 100 5 gm In Sodium Chloride 0 .9% 100 ml @ 100 mls/hr IV Q8HR [facility] Rx#:[id number] Norepinephrine 32 mg In 101.539 Sodium Chloride 0.9% 218 ml @ 0.5 MCG/KG/MIN 25. 547 mls/hr IV .Q9H48M [facility] Rx#:[id number] Tube Feeding Other Output: Urine 30 Other: Voiding Method Indwelling Catheter ABP, PAP, CO, CI - Last Documented Arterial Blood Pressure 58/46 On examination she is on the ventilator at 40% FiO2. Obtunded. Looks very pale Lungs are clear Heart sounds unremarkable for abdomen soft Extremities arms 2+ edema with gangrenous fingertips and toes and weeping from her left leg and it is bandaged. Neurologically obtunded - Labs CBC & Chem 7: 09/10/22 05:55 09/10/22 05:55 Labs: Abnormal Lab Results - Last 24 Hours (Table) 09/09/22 09/09/22 09/09/22 Range/Units 04:19 08:27 11:51 RBC (3.80-5.40) m/uL Hgb (11.4-16.0) gm/dL Hct (34.0-46.0) % MCHC (31.0-37.0) g/dL RDW (11.5-15.5) % Plt Count (150-450) k/uL Lymphocytes # (1.0-4.8) k/uL ABG pO2 (83-108) mmHg ABG Total CO2 (19-24) mmol/L ABG O2 Saturation (94-97) % Potassium (3.5-5.1) mmol/L BUN (7-17) mg/dL Creatinine (0.52-1.04) mg/dL Glucose (74-99) mg/dL POC Glucose (mg/dL) 182 H 166 H (70-110) mg/dL TIBC 211 L (228-460) ug/dL Transferrin 151.0 L (204.0-354.0) mg/dL Ferritin 945.0 H (10.0-291.0) ng/mL 09/09/22 09/09/22 09/10/22 Range/Units 16:45 20:34 00:47 RBC (3.80-5.40) m/uL Hgb (11.4-16.0) gm/dL Hct (34.0-46.0) % MCHC (31.0-37.0) g/dL RDW (11.5-15.5) % Plt Count (150-450) k/uL Lymphocytes # (1.0-4.8) k/uL ABG pO2 (83-108) mmHg ABG Total CO2 (19-24) mmol/L ABG O2 Saturation (94-97) % Potassium (3.5-5.1) mmol/L BUN (7-17) mg/dL Creatinine (0.52-1.04) mg/dL Glucose (74-99) mg/dL POC Glucose (mg/dL) 136 H 189 H 244 H (70-110) mg/dL TIBC (228-460) ug/dL Transferrin (204.0-354.0) mg/dL Ferritin (10.0-291.0) ng/mL 09/10/22 09/10/22 09/10/22 Range/Units 05:50 05:55 05:55 RBC 2.56 L (3.80-5.40) m/uL Hgb 7.0 L (11.4-16.0) gm/dL Hct 22.7 L (34.0-46.0) % MCHC 30.7 L (31.0-37.0) g/dL RDW 22.5 H (11.5-15.5) % Plt Count 6 L* (150-450) k/uL Lymphocytes # 0.8 L (1.0-4.8) k/uL ABG pO2 126 H (83-108) mmHg ABG Total CO2 26 H (19-24) mmol/L ABG O2 Saturation 98.8 H (94-97) % Potassium 6.3 H* (3.5-5.1) mmol/L BUN 112 H* (7-17) mg/dL Creatinine 1.11 H (0.52-1.04) mg/dL Glucose 191 H (74-99) mg/dL POC Glucose (mg/dL) (70-110) mg/dL TIBC (228-460) ug/dL Transferrin (204.0-354.0) mg/dL Ferritin (10.0-291.0) ng/mL 09/10/22 Range/Units 08:30 RBC (3.80-5.40) m/uL Hgb (11.4-16.0) gm/dL Hct (34.0-46.0) % MCHC (31.0-37.0) g/dL RDW (11.5-15.5) % Plt Count (150-450) k/uL Lymphocytes # (1.0-4.8) k/uL ABG pO2 (83-108) mmHg ABG Total CO2 (19-24) mmol/L ABG O2 Saturation (94-97) % Potassium (3.5-5.1) mmol/L BUN (7-17) mg/dL Creatinine (0.52-1.04) mg/dL Glucose (74-99) mg/dL POC Glucose (mg/dL) 145 H (70-110) mg/dL TIBC (228-460) ug/dL Transferrin (204.0-354.0) mg/dL Ferritin (10.0-291.0) ng/mL Assessment and Plan Assessment: Impression 1. Acute kidney injury secondary to prerenal from fungemia, gram-negative bacteremia on 08/08/2022 and recurrence of enterococcus bacteremia on 08/23/2022, additionally Pseudomonas and enterococcal UTI on 08/08/2022. Good urine output and creatinine was stable as of yesterday but this morning deterioration likely secondary to low blood pressure. 2. hyperkalemia secondary to clinic fingertips and toe tips as well as from acute kidney injury . 3. Ventilator dependent respiratory failure, stable 40% FiO2 3. Fingertips and toe tips ischemic 4. Thrombocytopenia secondary to most likely medications and sepsis 5. Atrial fibrillation Recommendation 1. patient received calcium, lokelma, we'll repeat potassium stat with blood sugars 4 hours after the locale 2. Maintain current Lasix 40 mg every 12 hours as well as Metolazonece 5 mg twice a day a day because of significant edema andhyperkalemia 3. Monitor labs Monitor I's and O's. 4. Discussed with the was in the room
--- NOTE | 2022-09-10 09:50 | P.PN ---
Subjective Progress Note Date: 09/10/22 On today's evaluation of 09/04/2022, seeing the patient for a follow-up. The patient is a very complex case, an 87-year-old female patient remains in septic shock, unresponsive, on a mechanical ventilator, being followed up in the intensive care unit, still seeing several consultants regarding her complex situation. In summary, this patient has been on a mechanical ventilator for septic shock. During her course of her illness, the patient had various infections, as the patient's initial infection was related to Enterococcus faecalis and pseudomonas aeruginosa in her urine and subsequently the patient became septic and grew anaerobic gram-negative bacillus in the blood and this was thought to be related to an ischemic bowel and following that, the patient developed sputum positive for Ange and the blood culture was also positive for Ange albicans on 08/11/2022. Subsequent sputum from 08/19/2022 was positive for MRSA, blood culture was positive for VRE on 08/19/2022 and repeated blood culture from 08/23/2022 was again positive for VRE. The patient is currently on a combination of Zerbaxa , eraxis and Zyvox. This morning, the patient is not receiving any sedation. As mentioned, she is completely unresponsive. she was seen by neurology on multiple occasions. The patient's m ost recent CAT scan of the brain that was done on 09/03/2022 showed evidence of cerebral atrophy without any acute changes. EEG that was done on 09/01/2022 showed evidence of burst suppression discharges suggestive of nonconvulsive status Versus anoxia the brain. There is also background slowing suggestive of severe encephalopathy. The patient does not respond to any verbal. She does not identify any painful stimulation. She has been off sedation for quite some time and I do not to follow this patient back into 2022. She remains on a mechanical ventilator. Noted the patient had received a tracheostomy and currently is on assist-control mode of mechanical ventilation. She is currently on a rate of 30 with a tidal volume of 400 and FiO2 of 40% with a PEEP of 10. Chest x-ray showing dense consolidation of the lung bases bilaterally. Blood gas from today shows a pH of 7.39, pCO2 of 46, pO2 133. Hemodynamically, she is on pressors and the patient is on vasopressin physiologic data that 0.04 units and the patient is also on norepinephrine running at 0.14 mcg/kg/m. She remains on a running at 10 mg an hour. Overall fluid balance is -2.6 L over the past 24 hours and the patient is responding nicely to the diuretics. Note that the most recent blood culture that was done on 08/29/2022 showed no evidence of any microbial growth. There is evidence currently of 14.6 with a hemoglobin of 8.4 and a platelet count of 104. BUN is at 19 with a creatinine of 1.2 and a sodium level is at 129. AST is 46, ALT is 27, alkaline phosphatase 187. Blood sugars at 1:30 from this morning. She still has a triple-lumen catheter in her left subclavian vein. She also has not. Right femoral. Patient is on Levemir insulin 15 units at bedtime in addition to NovoLog based on a sliding scale coverage. Antibiotics will mentioned above. TPN is running at the rate of 65 mL an hour. She is on amiodarone 400 mg by mouth twice a day and her current cardiac rhythm is controlled atrial fibrillation. She is on no anticoagulants for now. In terms of bowel movement activity, the patient is producing large amounts of stool and she has a fecal management system in Place. The patient remains on laxatives. The patient is a combination of MiraLAX and lactulose. Most recent ammonia level is at 20. On today's evaluation of 09/05/2022, I'm seeing the patient for a follow-up. Clinically unchanged. Off sedation. Unresponsive. Still on the mechanical ventilator and the patient has been switched to no colds. Nevertheless, the wanted to continue ongoing treatment with the understanding that the patient carries a very poor prognosis because of septic shock and multisystem organ failure. For now, the patient is on no sedation. The patient is unresponsive. The patient is not following any commands. The patient has been off sedation since 08/30/2022. The patient remains on mechanical ventilator and she is essentially on the same ventilator setting. She is currently on assist- control mode of mechanical ventilation with a rate of 30, tidal volume of 400, FiO2 of 40% and a PEEP of 10. The blood gas from today showed a pH of 7.4 with a pCO2 of 47 and pO2 of 110. Chest x-ray from today is not done. The last chest x-ray was from 09/03/2022. We'll repeat another chest x-ray tomorrow. The last chest x-ray showed tracheostomy and NG tube being in good location. The patient continues to have bilateral airspace disease. Hemodynamically, the patient's current cardiac rhythm is controlled a chest fibrillation. The patient is on pressors. The patient is on a norepinephrine at a rate of 0.13 mcg/kg/m. The patient remains on Lasix drip at 10 mg an hour. The patient is also on vasopressin physiologic dose of 0.04 units an hour. The patient is also receiving TPN for nutritional support. TPN is running at 65 mL an hour. Overall fluid balance over the past 24 hours has been in the order of -5.2 L as the patient is being aggressively diuresed. Meanwhile, a trial of enteral feeding was given to this patient in the patient failed to tolerate enteral feeding. She has a fecal management system in Place and she is still having liquidy loose stools. The abdomen is nondistended. The response of 10.6 with a hemoglobin of 8.2 and a platelet count of 66 which is a drop compared to yesterday. In same time, the patient has a sodium of 131, potassium of 3.2, and a potassium level has been placed, BUN is at 88 with a creatinine of 1.0 and is using a 27. Patient has a AST of 50, ALT of 28, alkaline phosphatase of 206, and albumin is at 1.8 with a total protein of 4.3. Glucose at 126. No new cultures are not available the most recent culture of the blood was from 08/29/2002 and this was negative. On 09/06/2022, clinically unchanged and the patient remains unresponsive. She grimaces only to deep painful stimulation. Otherwise, she does not open up her eyes spontaneously. She does not follow any commands. She has been off sedation for more than a week. She remains in septic shock with multisystem organ failure. For now, the patient's is on a mechanical ventilator through tracheostomy tube. The patient remains on assist-control mode of mechanical ventilation at the rate of 30 with a tidal volume of 400 and FiO2 of 40% and a P EEP is currently at 6. Meanwhile, the blood gas from today showed a pH of 7.42 with a pCO2 of 47 and a pO2 of 133. The patient is not having any significant orotracheal secretions. The chest x-ray that was done yesterday on 09/05/2022 showed adequate positioning of the tracheostomy tube. NG tube is also in good location. The patient has persistent bilateral pulmonary infiltration and pleural effusions. The chest x-ray findings of essentially unchanged. There may be just some air within the abdomen is on the x-ray findings and we noted the patient had pneumoperitoneum earlier. In terms of feeding, the patient was unable to tolerate enteral feeding. She was having high NG output. Bowel sounds are still sluggish. Based on that, the patient was kept on TPN for nutritional support which is running at the rate of 65 mL an hour. She remains on IV fluids at KVO. She is on norepinephrine which is running at 0.11 mcg/kg/m. Urine output is adequate. Overall fluid balance is -1.1 L over the past 24 hours as the patient is being also diuresed with IV Lasix and the patient is receiving Lasix drip at 10 mg an hour. There is improvement in the third spacing and edema in the upper and lower oximetry is bilaterally. Nevertheless, the patient continues to have digital necrosis in her toes and her fingers. Fecal management system still in place. The patient remains on the same antibiotic coverage for now. The patient's blood work from today shows a sodium of 133, potassium of 3.2, chloride of 95 with a bicarb of 29. LFTs are unchanged. The patient's WBC count from yesterday was at 10.6 with a hemoglobin of 8.2. Most recent blood culture from 08/29/2022 was negative. 09/07/2022, the patient remains off sedation. Unresponsive still. Past- pointing is eye-opening. She opens her mouth. Does not smoke. Does not follow any commands. At times, there is some postnasal eye-opening. No seizure activity has been noted. The patient remains on a combination of antiepileptic medications and the patient is currently on a combination of Dilantin, Keppra and Vimpat. Neurology still on the case. The patient did have some partial seizures on earlier EKGs and subsequent her seizures were controlled. Meanwhile, she remains on mechanical ventilator. As mentioned earlier, the patient is tracheostomy tube in place. The patient is on assist-control mode of mechanical ventilation at the rate of 30 with a tidal volume of 400 and FiO2 of 40% with a PEEP of 6. The blood gas from today shows a pH of 7.45 with a pCO2 45 and pO2 of 88. No significant orotracheal secretions. Hemodynamically, there is further improvement in fluid balance as the patient remains on Lasix drip at 10 mg an hour. The overall fluid balance has been negative in the order of 2.4 L. The patient is still on pressors were norepinephrine and the pressors have been weaned down to 0.0 aches micrograms per kilogram per minute. The patient remains on physiologic dose of vasopressin. IV fluids are currently at KVO. She remains in atrial fibrillation. Her BUN is at 91 with a creatinine of 0.9. Bicarb is at 31. Sodium is at 136 with a potassium level of 2.6 and this dates to be replaced. TPN is running at the rate of 65 mL an hour. No fever and the patient had another set of blood cultures sent yesterday. Otherwise, no other significant events. Family is being updated on her condition on daily basis. is not ready to let go. 09/08/2022, clinically unchanged and the patient remains unresponsive. I'm not seeing any signs of neurologic recovery in this patient. Remains unresponsive with 24 but or painful stimulation. No cough or gag. She is able to generate breaths above the mechanical ventilator. She occasionally spontaneously opens up her eyes. Still deeply comatose. No seizure activity has been noted. Suspect underlying component of encephalopathy, could be anoxic, could be metabolic. The patient meanwhile is on a mechanical ventilator. She is a tracheostomy. Ventilator settings are essentially unchanged with a rate of 30, tidal volume 400, FiO2 of 40% and PEEP is currently at 5. PH is 7.4 with a pCO2 of 45 and a pO2 of 133. As such, there is adequate oxygenation for now. In terms of hemodynamics, the patient is on minimal doses of pressors. The patient remains on vasopressin physiologic dose and norepinephrine running at 0.06 mcg/kg/m and this should be able to come off within the next 24 hours. The white suppositive 0.3. Repeat cultures were sent and the results are still pending for now. No fever. Remains on the same antibiotic coverage. On a separate note, the patient had a progressive drop in the platelet count over the past 4 days. She has not taken any heparin at this point in time. She never took heparin. She would've taken Lovenox several weeks back. Her platelet count is currently down to 12. No signs of any acute bleeding at this point in time. Hemoglobin is at 7.4. Cognition profile was done and there is no signs of DIC. Normal PT/PTT and INR. Fibrinogen level is at 573, slightly elevated. Hematology consultation was obtained regarding the strep and a platelet count. We'll send also heparin-induced antibodies. We attempted to and 32 this patient. She continues to have high residuals. Currently she is still on TPN for nutritional support and vital AF is still running at the rate of 10 mL an hour. Fecal management system is still in place. The patient is producing stool in the order of 400 mL on a daily basis and this is liquidy stool. The patient's electrolytes are all within normal limits. The BUN is at 97 with a creatinine of 0.7. Sodiums of 135. Her cardiac rhythm is sinus pH she remains on amiodarone. She is still on Lasix drip at 10 mg an hour. Lives with balance over the past 24 hours have been -2.4 L and the patient is still having significant amount of third spacing and edema which is essentially improving as the patient is headed towards negative fluid balance on a daily basis. She continues to have necrotic digits which remained essentially unchanged. Of concern is the neurologic impairment and the patient is still unresponsive. Remain on the same antibiotic coverage which includes Zyvox, Zerbaxa and Eraxis. 09/09/2022, neurologically unchanged, unresponsive, off sedation. Remains still on a mechanical ventilator. This is controlled rate of 30 with a tidal volume of 400 and FiO2 of 40% with a PEEP of 5. Blood gas show a pH of 7.39 with a pCO2 of 42 and pO2 of 132. The patient is doing some respiratory efforts were she breathes above the vent. No cough. No gag. No response to deep painful stimulation. No seizure activity has been noted. Hemodynamically, she was taken of the vasopressin. Norepinephrine dose was gradually brought up yesterday currently running at 0.28 mcg/kg/m. Her blood pressure is stable and we will attempt to wean it down again. Afebrile. Urine output is in order of 40-60 mL an hour and the overall fluid balance has been +363 mL over the past 24 hours. She remains on Lasix drip at 10 mg an hour. Remains on the same antibiotic coverage. There is a concern of an underlying thrombocytopenia. Hematology oncology consulted. Further workup is in order then we believe that this is a drug induced was at the PMI. No evidence of bleeding. Platelet count of 12. Hemoglobin 7.3 with a WBC count of 8.9. No signs of DIC at this point in time. She is tolerating his enteral feeding which is running at the rate of 30 mL an hour of vital AF. TPN is still running at a rate of 65 mL an hour. Fecal management system was in place. Urine output is adequate. Stool output is in order of 10-15 mL an hour. Cardiac rhythm is A. fib. The patient remains on amiodarone. The patient is not taking any form of anticoagulation. The patient on mitogen 10 mg by mouth 3 times a day. Blood sugar control is with Levemir 15 units at bedtime n addition to a sliding scale coverage. Antibiotic coverage is the same.Remain on the same antibiotic coverage which includes Zyvox, Zerbaxa and Eraxis. On today's evaluation of 09/10/2022, no neurologic progress and the patient remains unresponsive. Furthermore, there has been further decompensation her condition. Since yesterday, the patient's pressor requirements have changed and the patient is requiring higher doses of pressors. There is ongoing drop in her platelet count which is down to 6 and this is multifactorial as the patient takes several medications with contributions to thrombocytopenia. Nevertheless, we have not encountered any bleeding. The patient remains on a mechanical ventilator. We noted some feeding material around the tracheostomy stoma and obviously the enteral feeding was discontinued immediately. The stomach is also suctioned out. She remains on TPN for nutritional support. The patient is on a mechanical ventilator. She is on assist control mode at the rate of 24, tidal volume of 400, FiO2 is at 40% with a PEEP of 5. Blood gases are adequate in the pH of 7.36 and a pCO2 of 44 and pO2 of 126. Chest x-ray shows lower lobe at the pulmonary infiltrates. These are chronic. No interval change. Possibly some small pleural effusions are also present. Nevertheless, the findings of essentially stable. The patient was taken off the Lasix drip yesterday. The patient is currently receiving Lasix 40 mg IV every 12 hours. She continues to have some anasarca and diffuse edema in all 4 extremities. On today's blood work, her potassium came up 6.3 and she was treated accordingly. She was given bicarb and lokelma and calcium. No significant arrhythmias. BUN is up to 112 with a creatinine of 1.1. Sodium is at 137. Repeat blood cultures were sent. The WBC is at panel with a hemoglobin of 7.0. In terms of temperature, the patient remains afebrile. She remains in atrial fibrillation. She remains on amiodarone. No anticoagulants for now. She remains on mitogen. Antibiotics have been adjusted and the patient was taken off the Zyvox patient remains on Eraxis and zerbaxa. Also, the Dilantin dose has been modified Objective - Vital Signs Vital signs: Vital Signs Temp 97.1 F L 09/10/22 08:00 Pulse 108 H 09/10/22 08:53 Resp 29 H 09/10/22 08:00 BP 112/61 09/10/22 08:00 Pulse Ox 100 09/10/22 08:00 FiO2 40 09/10/22 08:37 Intake & Output 09/09/22 09/10/22 09/10/22 17:59 06:59 18:59 Intake Total 555.539 Output Total 30 Balance 525.539 Intake: IV 354 0.9% @ KVO 30 Anidulafungin 100 mg In Sodium Chloride 0.9% 100 ml @ 84 mls/hr IVPB Q24H [facility] Rx#:[id number] Ceftolozane/Tazobactam 1. 100 5 gm In Sodium Chloride 0 .9% 100 ml @ 100 mls/hr IV Q8HR [facility] Rx#:[id number] Lacosamide IV 150 mg In 50 Sodium Chloride 0.9% 50 ml @ 100 mls/hr IVPB BID [facility] Rx#:[id number] Mvi, Adult No.4 with Vit 65 K 10 ml Trace (Conc-1Ml/ Dose) 1 ml Potassium Phosphate 9 mmol Sodium Acetate 30 meq Potassium Chloride 80 meq Magnesium Sulfate gm 1 gm Sodium Chloride 4Meq/ml Vial 100 meq Calcium Gluconate 3 gm In Amino Acids 5 %/ Dextrose 20 % 1,000 ml @ 65 mls/hr IV .BY DURATION [facility] Rx#:[id number] Normal Saline: Pressure 9 Bag Phenytoin Sodium Inj 300 mg In Sodium Chloride 0.9 % 50 ml @ 80 mls/hr IVPB Q12H [facility] Rx#:[id number] levETIRAcetam IV 1,000 mg 100 In Saline 1 100ml.bag @ 400 mls/hr IVPB Q12HR [facility] Rx#:[id number] Intake, IV Titration 201.539 Amount Ceftolozane/Tazobactam 1. 100 5 gm In Sodium Chloride 0 .9% 100 ml @ 100 mls/hr IV Q8HR [facility] Rx#:[id number] Norepinephrine 32 mg In 101.539 Sodium Chloride 0.9% 218 ml @ 0.5 MCG/KG/MIN 25. 547 mls/hr IV .Q9H48M [facility] Rx#:[id number] Tube Feeding Other Output: Urine 30 Other: Voiding Method Indwelling Catheter ABP, PAP, CO, CI - Last Documented Arterial Blood Pressure 58/46 - Exam GENERAL EXAM: Intubated, sedated, 87-year-old morbidly obese female , unresponsive, not responsive to any form of verbal or painful stimulation. I have not seen any cough or gag. She is able to trigger the mechanical ventilator. She does not open her eyes spontaneously. She has an open mouth. Mucous membranes are quite dry. She is quite synchronous a mechanical ventilator. HEAD: Normocephalic. EYES: Sluggish reaction of pupils, equal size. NOSE: Nasogastric tube secured in place. Clear with pink turbinates. THROAT: The patient is a tracheostomy tube in place. The patient is a Bivona tracheostomy tube for now. NECK: No masses, no JVD. CHEST: No chest wall deformity. LUNGS: Equal air entry with crackles in the bilateral bases. CVS: S1 and S2 normal with no audible murmur, irregular rhythm. ABDOMEN: No hepatosplenomegaly, normal bowel sounds, no guarding or rigidity. SPINE: No scoliosis or deformity SKIN: No rashes CENTRAL NERVOUS SYSTEM: Unresponsive, deeply comatose at this point in time. Off sedation for several days without any signs of any neurologic recovery. EXTREMITIES: There is 1-2+ peripheral edema. Changes of chronic venous stasis. No clubbing, no cyanosis. Peripheral pulses are intact. - Labs CBC & Chem 7: 09/10/22 05:55 09/10/22 05:55 Labs: Abnormal Lab Results - Last 24 Hours (Table) 09/09/22 09/09/22 09/09/22 Range/Units 04:19 11:51 16:45 RBC (3.80-5.40) m/uL Hgb (11.4-16.0) gm/dL Hct (34.0-46.0) % MCHC (31.0-37.0) g/dL RDW (11.5-15.5) % Plt Count (150-450) k/uL Lymphocytes # (1.0-4.8) k/uL ABG pO2 (83-108) mmHg ABG Total CO2 (19-24) mmol/L ABG O2 Saturation (94-97) % Potassium (3.5-5.1) mmol/L BUN (7-17) mg/dL Creatinine (0.52-1.04) mg/dL Glucose (74-99) mg/dL POC Glucose (mg/dL) 166 H 136 H (70-110) mg/dL TIBC 211 L (228-460) ug/dL Transferrin 151.0 L (204.0-354.0) mg/dL Ferritin 945.0 H (10.0-291.0) ng/mL 09/09/22 09/10/22 09/10/22 Range/Units 20:34 00:47 05:50 RBC (3.80-5.40) m/uL Hgb (11.4-16.0) gm/dL Hct (34.0-46.0) % MCHC (31.0-37.0) g/dL RDW (11.5-15.5) % Plt Count (150-450) k/uL Lymphocytes # (1.0-4.8) k/uL ABG pO2 126 H (83-108) mmHg ABG Total CO2 26 H (19-24) mmol/L ABG O2 Saturation 98.8 H (94-97) % Potassium (3.5-5.1) mmol/L BUN (7-17) mg/dL Creatinine (0.52-1.04) mg/dL Glucose (74-99) mg/dL POC Glucose (mg/dL) 189 H 244 H (70-110) mg/dL TIBC (228-460) ug/dL Transferrin (204.0-354.0) mg/dL Ferritin (10.0-291.0) ng/mL 09/10/22 09/10/22 09/10/22 Range/Units 05:55 05:55 08:30 RBC 2.56 L (3.80-5.40) m/uL Hgb 7.0 L (11.4-16.0) gm/dL Hct 22.7 L (34.0-46.0) % MCHC 30.7 L (31.0-37.0) g/dL RDW 22.5 H (11.5-15.5) % Plt Count 6 L* (150-450) k/uL Lymphocytes # 0.8 L (1.0-4.8) k/uL ABG pO2 (83-108) mmHg ABG Total CO2 (19-24) mmol/L ABG O2 Saturation (94-97) % Potassium 6.3 H* (3.5-5.1) mmol/L BUN 112 H* (7-17) mg/dL Creatinine 1.11 H (0.52-1.04) mg/dL Glucose 191 H (74-99) mg/dL POC Glucose (mg/dL) 145 H (70-110) mg/dL TIBC (228-460) ug/dL Transferrin (204.0-354.0) mg/dL Ferritin (10.0-291.0) ng/mL Assessment and Plan Plan: Acute on chronic hypoxemic respiratory failure, status post intubation on August 10, and tracheostomy on August 25. Chest x-ray continues to show consolidation of the lung bases and pleural effusions bilaterally. Oxygen is stable and the patient remains on a mechanical ventilator assist control mode and the patient has a tracheostomy tube in place. No change in oxygenation and the patient's overall respiratory status is stable. The patient has adequate oxygenation for now. Blood gas was noted. Repeat chest x-ray on 09/10/2022 shows stable lower lobe pulmonary infiltrates. These are unchanged. The patient has adequate oxygenation. Bilateral lower lobe pneumonia with persistent consolidation lung bases. Most recent sputum indicating MRSA and Ange from 08/19/2022 Septic shock of multiple sources. The patient had initially Enterococcus faecalis and Pseudomonas in her urine on 08/08/2022. The patient also had anaerobic gram-negative bacillus in her blood probably of an end of the abdominal source. Subsequently, the patient had systemic candidemia on 08/19/2022 and VRE in her blood on 08/23/2022. She remains on pressors. Note that review blood cultures were sent. The patient remains on a physiologic dose of vasopressin and norepinephrine at 0.34 mcg/kg/m. repeat cultures are still pending for now, repeat cultures were sent yesterday Unresponsive, CAT scan of the brain is negative, EEG showing severe encephalopathy, most recent CAT scan of the brain was done on 09/03/2022 and it showed cerebral atrophy without any acute abnormalities. The patient remains severely encephalopathic. The patient had partial seizures confirmed by EEG and the patient is on a combination of antiepileptic medication including dilantin and Keppra. Neurology is still on the case. Clinically unchanged and the patient remains deeply comatose. TPN nutritional support, unable to tolerate enteral feeding due to high residuals and possibly some aspiration Acute on chronic diastolic CHF. Abdominal sepsis/septic shock. Urinary tract infection secondary to Enterococcus faecalis and pseudomonas aeruginosa. Bacteremia secondary to vancomycin-resistant enterococci (VRE) Systemic candidiasis. The patient systemic candidemia confirmed by positive blood culture. Repeat blood culture was negative and the patient is current on Eraxis. Atrial fibrillation with RVR, rate controled for now Acute on chronic kidney disease. Massive volume overload, lives treated with Lasix drip, now on Lasix 40 mg IV every 12 hours Acute hyperkalemia, treated Recent history of coronavirus infection. History of aortic stenosis. Acute on chronic anemia. The hemoglobin is stable at 7.0 History of COPD. History of diastolic congestive heart failure. Morbid obesity. Diarrhea with fecal management system in Place, diarrhea has improved Necrotic digits of the upper and lower extremities and the patient has gangrenous toes and fingers probably related to chronic sepsis, hypotension, and use of pressors Pressure ulcer on her coccyx Due to thrombocytopenia with a drop in the platelet count down to 6. No bleeding. No evidence of DIC. Rule out drug induced. Several drug screen positive due to this thrombocytopenia. Plan: Transfuse with platelets to maintain a platelet count above 10 Date hyperkalemia and repeat a potassium level. The patient was given calcium, bicarbonate, and lokelma Continue ventilator support Repeat blood cultures, results are pending, negative thus far Continue same antibiotic coverage with zerbaxa and Eraxis. Zyvox was discontinued This continue enteral feeding Continue TPN for nutritional support Continue Lasix 40 mg IV Lasix every 12 hours Wean off norepinephrine if possible no sadation Continue midodrine 10 mg tid Avoid sedatives for now, the patient has been off sedation for more than a week. No reasonable neurological recovery. Most recent CAT scan of the brain was done on 09/03/2022 showing no acute changes Wound care Extremely poor prognosis. This has been discussed with the family on multiple occasions. Condition is critical and prognosis poor. We'll continue to follow. This evaluation was a on more than 30 minutes. is not ready to Go and is not considering comfort care measures yet. Her chance of recovery is extremely low for and this has been explained to the daughter and the on multiple occasions. Family wanted all support for now. Critical care evaluation, > 30 min Time with Patient: Greater than 30
[2022-09-10] MEDS: PHENYTOIN SODIUM INJ 200 MG in SODIUM CHLORIDE 0.9% 36 ML IVPB SCH ×2 (10:04→20:09)
--- NOTE | 2022-09-10 10:38 | P.PN ---
Subjective Progress Note Date: 09/10/22 09/10/2022: This is a telemedicine neurology follow performed today on 09/10/2022. Patient continues to be in a moribund state. Patient has tracheostomy. Patient's was present, who believes that when he talks to her, she listens and she responds. Patient has involuntary blinking suspicious for seizures, which patient's believes is her response when he is talking to her. Patient has been hypotensive, vasopressin has been discontinued, but patient is on very high-dose norepinephrine 0.38 g per program per minute which comes out to be 15 mcg/m. Her blood pressure is running 98/40. Patient's platelets has further gone down to 6000. Patient will be receiving one units of platelets. 09/09/2022: This is a telemedicine neurology follow performed today on 09/09/2022. Patient's daughter was present today. She mentions that patient is no change. Belly Packer has seen the patient, and feels thrombocytopenia is from antibiotics. Recommended to stop some antibiotics. Patient's platelets today again is 12,000. No changes clinically otherwise. 09/08/2022: Patient was seen for a follow-up. Patient's and patient's daughter were both present today. I had an extremely prolonged discussion for almost over 40 minutes discussing about patient's condition, prognosis. Patient's continues to believe that there is hope she will come around and wake up. Patient currently on norepinephrine 0.14 mcg/kg/m infusion. 09/07/2022: Patient clinically unchanged. Patient's daughter was present today. Some concern raised about repeating EEG. Patient is having some periodic eye twitching, and chin twitching, which is concerning for seizures. 09/06/2022: Patient was seen for a follow-up. Patient's daughter was present today. Patient appears more edematous, has developed a couple 1-2 inch big blisters on her lower leg, with serous fluid inside. Patient continues to be on Levophed 0.5 mcg/kg/m and also on norepinephrine 0.04 units per minute. Patient's fingertips hypoxic much worse particularly in the right with significant redness at the borders, with demarcation. The left fingertips appears slightly better. Does have gotten worse. Patient has developed blisters. 09/05/2022: Patient was seen for a follow-up. Patient's and their daughter was present today. Patient is essentially unchanged. Patient's alcon d believes that she is responding to him. Patient sometimes has a slight twitch of the chin or sometimes twitches of her eyes, which he believes is response. He tried multiple times to get a response from the patient in front of me, but there was no response at all. Some twitches were reflexive, could be epileptic as well. 09/04/2022: Patient was seen for a follow-up. Patient's daughter was present. Patient was seen by Dr. Edouard Peres in the previous 7 days. Please refer to his notes for details. Patient at present on Levophed 0.12 g, and vasopressin 0.04 g. Patient is of Versed and Ativan since 08/30/2022. There is no obvious physical seizure activity. Patient had numerous EEGs, which continues to show subclinical status. Patient's family believes that she is responding, as her chin moved slightly and she is slightly moves her eyes with her lids closed. She may still slightly open her eyes, which appears reflexive rather than involving treat appears. No seizure-like activity noticed at this time either. Patient continues to have severe blackening of the fingertips and the toes, and some sloughing of the skin of the toes. 08/27/2022: Patient was seen for a follow-up. Patient continues to be significantly encephalopathic. No obvious shoulder twitching on the right side was observed. Patient currently on Versed drip 7 mg per hour. Also on other medications as mentioned from yesterday. Patient has tracheostomy. Awaiting PEG placement. Patient currently on Levophed at 36 mcg/m(0.25 g microgram per minute), and vasopressin 0.02 units per minute. 08/26/2022: Patient was seen for a follow-up. Patient is clinically unchanged. However the seizure-like activity involving right shoulder has completely resolved. Patient currently on Versed 7 mg/h drip. Also on amiodarone, nore pinephrine 0.47 mcg/mg per hour, vasopressin 0.04 units per minute. Also on bicarbonate drip. Patient has not had PEG tube placed yet. Patient's believes that when the PEG tube is placed, she will get nutrition and she will get better. Also discussed with patient's daughter and her , who was sitting in the waiting area. Patient's also believes the seizures are related to issues with the lower back region. 08/25/2022: Patient was seen for a follow-up. Patient's and patient's daughter were both present. Patient continues to be comatose. She has intermittent rhythmic twitching of the right shoulder. Patient is already on high dose Keppra, Vimpat adjusted to her renal functions, and Versed drip. Patient already has received Dilantin 1 g IV PB and she is still twitching in the right shoulder. Dilantin level came as 4.5. Patient will receive another loading dose of Dilantin 1 g. Target Dilantin level 12-20. Patient's toes are getting more dusky. Patient has developed some blisters, but that happened before she received Dilantin, therefore not related to Dilantin ALLERGY. Patient has generalized anasarca. 08/24/2022: Patient was seen for a follow-up. Patient is undergoing EEG at this time. Patient continues to have PLEDS. Patient was given Ativan 2 mg without much improvement, then repeated at another 2 mg Ativan. Patient subsequently received Versed 5 mg IV push without improvement, started on Versed drip 5 mg per hour. Patient states on pressors with vasopressin and Levophed. Patient continues to be comatose. Occasional twitching of the right shoulder noticed. I had discussed case with Dr. Hagen yesterday after he reported abnormal prolonged EEG about transfer patient to [facility], but he mentioned that beds were not available. 08/23/2022: Patient was seen for a follow-up. Patient is intubated, not on any sedation. She is on full pressors with Levophed and vasopressin. Also on 3 antibiotics, anti-seizure medications including Keppra and Vimpat. Patient had sporadic seizure-like activity with facial twitching. No definite arm twitching noted. Episode lasted for about 30 minutes. At present there is no twitching noticeable. Patient's and grandchildren were present today. 08/22/2022: Patient was seen for a follow-up. Patient's daughter was also present today. Patient recently had temperature of 100.3. About an hour prior to spiking temperature, patient had some facial twitching, with jaw opening and closing, that lasted for half an hour. No upper extremity movement was noted at that time. Patient continues to be on Keppra 750 mg twice a day. Patient continues to be on high-dose pressors. Patient at present is no code, but full medical treatment. 08/21/2022: Patient initially seen by Dr. Edouard Peres. Please refer to his note for details. Patient is an 87-year-old female with altered mental status. Patient has septic encephalopathy. Patient had a seizure-like activity yesterday at 1:15 PM with head jerking and left arm jerking. Patient was given Ativan 4 mg, and the seizure-like stopped. Patient was given a loading dose of Keppra 1000 mg IV and then maintained on 500 mg twice a day. Patient had again seizure-like activity at 3 AM lasted for 45 minutes and then 5 AM and patient was given another loading dose of 500 mg Keppra. Nurse called me today at around 7:30 AM. It lasted for 20-30 minutes. Patient was again given Valium 4 mg in the seizure- like activity resolved. Patient was started on Vimpat 100 mg twice a day IV PB. EEG was performed today, which was abnormal sleep EEG due to background slowing of moderate degree. Some sharply contoured waves were seen in the left parietal region. No clear-cut epileptiform activity was seen. Objective - Vital Signs Vital signs: Vital Signs Temp 97.1 F L 09/10/22 08:00 Pulse 108 H 09/10/22 08:53 Resp 29 H 09/10/22 08:00 BP 112/61 09/10/22 08:00 Pulse Ox 100 09/10/22 08:00 FiO2 40 09/10/22 08:37 Intake & Output 09/09/22 09/10/22 09/10/22 17:59 06:59 18:59 Intake Total 555.539 Output Total 30 Balance 525.539 Intake: IV 354 0.9% @ KVO 30 Anidulafungin 100 mg In Sodium Chloride 0.9% 100 ml @ 84 mls/hr IVPB Q24H [facility] Rx#:[id number] Ceftolozane/Tazobactam 1. 100 5 gm In Sodium Chloride 0 .9% 100 ml @ 100 mls/hr IV Q8HR [facility] Rx#:[id number] Lacosamide IV 150 mg In 50 Sodium Chloride 0.9% 50 ml @ 100 mls/hr IVPB BID [facility] Rx#:[id number] Mvi, Adult No.4 with Vit 65 K 10 ml Trace (Conc-1Ml/ Dose) 1 ml Potassium Phosphate 9 mmol Sodium Acetate 30 meq Potassium Chloride 80 meq Magnesium Sulfate gm 1 gm Sodium Chloride 4Meq/ml Vial 100 meq Calcium Gluconate 3 gm In Amino Acids 5 %/ Dextrose 20 % 1,000 ml @ 65 mls/hr IV .BY DURATION [facility] Rx#:[id number] Normal Saline: Pressure 9 Bag Phenytoin Sodium Inj 300 mg In Sodium Chloride 0.9 % 50 ml @ 80 mls/hr IVPB Q12H [facility] Rx#:[id number] levETIRAcetam IV 1,000 mg 100 In Saline 1 100ml.bag @ 400 mls/hr IVPB Q12HR [facility] Rx#:[id number] Intake, IV Titration 201.539 Amount Ceftolozane/Tazobactam 1. 100 5 gm In Sodium Chloride 0 .9% 100 ml @ 100 mls/hr IV Q8HR [facility] Rx#:[id number] Norepinephrine 32 mg In 101.539 Sodium Chloride 0.9% 218 ml @ 0.5 MCG/KG/MIN 25. 547 mls/hr IV .Q9H48M [facility] Rx#:[id number] Tube Feeding Other Output: Urine 30 Other: Voiding Method Indwelling Catheter ABP, PAP, CO, CI - Last Documented Arterial Blood Pressure 58/46 - Exam Patient is an elderly female, who is comatose with GCS of 3. Patient is not on any sedation. Patient is off Ativan/Versed since 08/30/2022. Patient continues to be on pressors. Patient does not respond to painful stimuli or c alling out loudly. No focal seizure noted involving right shoulder. Patient continues to have intermittent slight twitch of her chin, and eye blinks. It appears seizure phenomenon. Pupils are equal, round and reacting bilaterally. Oculocephalics are absent, corneals absent. Patient sometimes minimally opens her eyes, but the gaze is more in front. Patient has no gag. No cough reflex. Patient is breathing over the ventilator. The ventilator is set at 24 and she is breathing 27. Reflexes are absent. Patient has significant peripheral edema. Patient's fingers and toes are dusky, cyanotic, now turning black, right side worse than left. - Labs CBC & Chem 7: 09/10/22 05:55 09/10/22 05:55 Labs: Abnormal Lab Results - Last 24 Hours (Table) 09/09/22 09/09/22 09/09/22 Range/Units 04:19 08:27 11:51 RBC (3.80-5.40) m/uL Hgb (11.4-16.0) gm/dL Hct (34.0-46.0) % MCHC (31.0-37.0) g/dL RDW (11.5-15.5) % Plt Count (150-450) k/uL Lymphocytes # (1.0-4.8) k/uL ABG pO2 (83-108) mmHg ABG Total CO2 (19-24) mmol/L ABG O2 Saturation (94-97) % Potassium (3.5-5.1) mmol/L BUN (7-17) mg/dL Creatinine (0.52-1.04) mg/dL Glucose (74-99) mg/dL POC Glucose (mg/dL) 182 H 166 H (70-110) mg/dL TIBC 211 L (228-460) ug/dL Transferrin 151.0 L (204.0-354.0) mg/dL Ferritin 945.0 H (10.0-291.0) ng/mL 09/09/22 09/09/22 09/10/22 Range/Units 16:45 20:34 00:47 RBC (3.80-5.40) m/uL Hgb (11.4-16.0) gm/dL Hct (34.0-46.0) % MCHC (31.0-37.0) g/dL RDW (11.5-15.5) % Plt Count (150-450) k/uL Lymphocytes # (1.0-4.8) k/uL ABG pO2 (83-108) mmHg ABG Total CO2 (19-24) mmol/L ABG O2 Saturation (94-97) % Potassium (3.5-5.1) mmol/L BUN (7-17) mg/dL Creatinine (0.52-1.04) mg/dL Glucose (74-99) mg/dL POC Glucose (mg/dL) 136 H 189 H 244 H (70-110) mg/dL TIBC (228-460) ug/dL Transferrin (204.0-354.0) mg/dL Ferritin (10.0-291.0) ng/mL 09/10/22 09/10/22 09/10/22 Range/Units 05:50 05:55 05:55 RBC 2.56 L (3.80-5.40) m/uL Hgb 7.0 L (11.4-16.0) gm/dL Hct 22.7 L (34.0-46.0) % MCHC 30.7 L (31.0-37.0) g/dL RDW 22.5 H (11.5-15.5) % Plt Count 6 L* (150-450) k/uL Lymphocytes # 0.8 L (1.0-4.8) k/uL ABG pO2 126 H (83-108) mmHg ABG Total CO2 26 H (19-24) mmol/L ABG O2 Saturation 98.8 H (94-97) % Potassium 6.3 H* (3.5-5.1) mmol/L BUN 112 H* (7-17) mg/dL Creatinine 1.11 H (0.52-1.04) mg/dL Glucose 191 H (74-99) mg/dL POC Glucose (mg/dL) (70-110) mg/dL TIBC (228-460) ug/dL Transferrin (204.0-354.0) mg/dL Ferritin (10.0-291.0) ng/mL 09/10/22 Range/Units 08:30 RBC (3.80-5.40) m/uL Hgb (11.4-16.0) gm/dL Hct (34.0-46.0) % MCHC (31.0-37.0) g/dL RDW (11.5-15.5) % Plt Count (150-450) k/uL Lymphocytes # (1.0-4.8) k/uL ABG pO2 (83-108) mmHg ABG Total CO2 (19-24) mmol/L ABG O2 Saturation (94-97) % Potassium (3.5-5.1) mmol/L BUN (7-17) mg/dL Creatinine (0.52-1.04) mg/dL Glucose (74-99) mg/dL POC Glucose (mg/dL) 145 H (70-110) mg/dL TIBC (228-460) ug/dL Transferrin (204.0-354.0) mg/dL Ferritin (10.0-291.0) ng/mL Assessment and Plan Assessment: * Electographic partial status epilepticus, severe, totally medically intractable. On keppra, Vimpat and Dilantin. Also has tried IV versed and IV ativan, propofol without improvement. IV sedation has been off since 08/30/22. * Altered mental status multifactorial as mentioned below. Partial status, septic encephalopathy, electrolyte imbalance, renal failure, sepsis, and hepatic encephalopathy, cannot rule out intracranial infection. * Acute thrombocytopenia, with platelets of further down to 6000. * Hyperkalemia with potassium 6.3 * Worsening renal function status with BUN 112, creatinine 1.11 (97/0.98 respectively yesterday). * Perforated viscus with pneumoperitoneum. Treated conservatively. * Septicemia, with leukocytosis and previously positive blood culture with enterococcus faecium as of 08/23/2022. Most recent blood culture 08/29/2022 is negative. White cells back to normal. * Hepatic encephalopathy with initial elevated ammonia 214, resolved. * Septic shock requiring high-dose pressors and seems has urinary tract infection with urine culture positive for Enterococcus faecalis and Pse udomonas aeruginosa as well as systemic candidiasis Atrial fibrillation on eliquis (which has hx of afib) , currently on hold. Acute on chronic hypoxemic respiratory failure secondary to diastolic congestive heart failure requiring intubation mechanical ventilation Acute on chronic kidney disease History of TIAs/stroke History of coronary artery disease with stent Hypertension Hyperlipidemia Diabetes mellitus Anemia Hypocalcemia, resolved Plan: * Patient has developed worsening thrombocytopenia. Patient is undergoing platelet transfusion. Hematology believes the antibiotics are the culprit. Dilantin sometimes can also affect blood counts, although more of WBC. However we will decrease Dilantin to 200 mg IV twice a day. Continue same dose of Keppra and Vimpat. * Patient probably continues to have some seizure activity with eye twitching sporadically and chin twitch. Her previous EEGs continues to show subclinical partial status. Patient is off Versed and Ativan drip. She continues to be on 3 antiepileptic medications as mentioned below. Patient's daughter believes including her dad, that patient is showing some meaningful response, which I doubt. Family does not want any more EEGs at this time. They're comfortable as long as patient is not exhibiting overt seizure activity. Patient has occasional twitch of the chin, or the eye, which could be still possibly ictal phenomenon. * Patient already on high dose Vimpat 150 mg twice a day, Keppra 1000 mg twice a day (both of them adjusted for current renal functions) and Dilantin 300 mg twice a day. Dilantin level was checked 8.8 however her albumin is very low 1.8. Therefore adjusted Dilantin level is 14.8 which is completely therapeutic. Keppra level 68.9 (3-60). Cannot give Depakote because of hyperammonemia. * Continue Ativan 1-2 mg every 4 hours when necessary seizure. * Routine EEG 09/01/2022 was abnormal. Patient continues to have burst suppres terell with discharges. 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 The patient's suppression is likely due to status epilepticus BS anoxic brain injury. The background slowing is suggestive of severe encephalopathy. The patient's EEG seems to be about the same as compared to the prior study. * Prolonged 2.5 hours EEG on 08/24/2022 was abnormal with evidence of runs of 1 Hz LPDs plus there was lateralized periodic discharges, sharp and slow and poly-sharp and slow waves over the left parietal region with spread more anteriorly. There are also some discharges semi-periodic LPDs over the right posterior quadrants. Exact cause remains uncertain. * Repeat CT head 09/03/2022 revealed cerebral atrophy. No acute intracranial abnormality. I personally reviewed CT head, and agreed no acute process. * ID is also on board. Patient currently on Eraxis, Zerbaxa. Patient is off Zyvox. Per ID, patient is already covered well for meningitis. * Patient's initial Ammonia was 214. Most recent ammonia level 20 on 09/04/2022. Patient on lactulose. * CT abdomen revealed possibility of perforated viscus. Surgery on board. Patient was considered not a candidate for surgery because of hemodynamic instability. * Patient is still on pressors. Patient is showing blackening of the digits of her hands and feet. * Hypocalcemia, resolved. * We'll defer the rest of medical management to primary and ICU team * Discussed with patient's today. * Overall prognosis appears very poor. * Dr. Edouard Peres Will resume neurology service in the morning.
[2022-09-10 11:32] LABS: Glucose,Whole Blood 221 mg/dL (70-110)
[2022-09-10 12:10] LABS: Calcium 8.2 mg/dL (8.4-10.2)
[2022-09-10 12:15] LABS: Potassium 6.2 mmol/L (3.5-5.1)
[2022-09-10] MEDS ORDERED: DEXTROSE 50% SYRINGE 50 ML IVP STA ×2 (12:47→19:18)
[2022-09-10] MEDS ORDERED: FUROSEMIDE 10 MG/ML 10 ML VIAL IV STA ×2 (12:47→19:18)
[2022-09-10] MEDS ORDERED: INSULIN REGULAR 100 UNIT/ML VIAL (IV) IV ONE ×2 (13:00→19:18)
--- NOTE | 2022-09-10 13:04 | P.PN ---
Subjective Progress Note Date: 09/10/22 Principal diagnosis: Sepsis, acute kidney injury, heart failure, on ventilator at 40% FiO2, on vasopressin and Levophed doses of both meds have been reduced, blood pressure is improved urinary output has improved, need TPN Noted the patient trached patient started on phenytoin secondary to possible seizure activities noted on EEG,end of life care discussed at length with mary petersen's daughter and is currently no CPR otherwise they want to continue current care however there has been explained that there is been no or little improvement in her status Patient presented to the hospital on 08/08/2022 secondary to shortness of breath hypotension patient had syncopal episode on the toilet, was recently discharged from rehab facility, brought in by EMS, was admitted to the stepdown unit, and subsequently transferred to the intensive care unit where she was placed on B iPAP secondary to severe acidosis and was intubated and placed on pressors , despite multiple boluses of normal saline despite receiving IV Lasix. This patient has a long-standing history of diabetes hypertension 09/07/2022 patient currently intubated and sedated, etiology for current state includes sepsis fungemia urinary sepsis urine cultures growing Pseudomonas and enterococcus and acute tubular necrosis the kidneys marisel, and left lower lobe pneumonia Patient is currently maintained on pressors including Levophed and vasopressin being reduced, trached, no recent change in status 09/08/2022 patient currently intubated, limited response and state includes sepsis fungemia cultures have grown Pseudomonas and enterococcus acute kidney injury kidneys are stable at this time observe left lower lobe pneumonia patient is currently maintained on pressures including Levophed and vasopressin she is trached no change in recent status 09/10/2022 Patient continues to be unresponsive on the vent patient is now requiring higher doses of pressors ongoing, thrombocytopenia progressing Diffuse edema at all 4 extremes Bun, Is up to 112 and creatinine of 1.1, rhythm is atrial fibrillation, no anticoagulants, and Zyvox Objective - Vital Signs Vital signs: Vital Signs Temp 97.6 F 09/10/22 12:00 Pulse 106 H 09/10/22 12:17 Resp 24 09/10/22 12:00 BP 112/61 09/10/22 08:00 Pulse Ox 100 09/10/22 12:00 FiO2 40 09/10/22 12:00 Intake & Output 09/09/22 09/10/22 09/10/22 17:59 06:59 18:59 Intake Total 609.539 Output Total 80 Balance 529.539 Intake: IV 408 0.9% @ KVO 75 Anidulafungin 100 mg In Sodium Chloride 0.9% 100 ml @ 84 mls/hr IVPB Q24H [facility] Rx#:[id number] Ceftolozane/Tazobactam 1. 100 5 gm In Sodium Chloride 0 .9% 100 ml @ 100 mls/hr IV Q8HR [facility] Rx#:[id number] Lacosamide IV 150 mg In 50 Sodium Chloride 0.9% 50 ml @ 100 mls/hr IVPB BID [facility] Rx#:[id number] Mvi, Adult No.4 with Vit 65 K 10 ml Trace (Conc-1Ml/ Dose) 1 ml Potassium Phosphate 9 mmol Sodium Acetate 30 meq Potassium Chloride 80 meq Magnesium Sulfate gm 1 gm Sodium Chloride 4Meq/ml Vial 100 meq Calcium Gluconate 3 gm In Amino Acids 5 %/ Dextrose 20 % 1,000 ml @ 65 mls/hr IV .BY DURATION [facility] Rx#:[id number] Normal Saline: Pressure 18 Bag Phenytoin Sodium Inj 300 mg In Sodium Chloride 0.9 % 50 ml @ 80 mls/hr IVPB Q12H [facility] Rx#:[id number] levETIRAcetam IV 1,000 mg 100 In Saline 1 100ml.bag @ 400 mls/hr IVPB Q12HR [facility] Rx#:[id number] Intake, IV Titration 201.539 Amount Ceftolozane/Tazobactam 1. 100 5 gm In Sodium Chloride 0 .9% 100 ml @ 100 mls/hr IV Q8HR [facility] Rx#:[id number] Norepinephrine 32 mg In 101.539 Sodium Chloride 0.9% 218 ml @ 0.5 MCG/KG/MIN 25. 547 mls/hr IV .Q9H48M [facility] Rx#:[id number] Tube Feeding Other Output: Urine 80 Other: Voiding Method Indwelling Catheter ABP, PAP, CO, CI - Last Documented Arterial Blood Pressure 101/47 - Exam General: Patient is intubated on a vent Morbidly obese HEENT: Normocephalic atraumatic, senescent pattern baldness Neck: [No adenopathy.] Cardiac: [Heart regularly irregular. No S3. No S4. No clicks, rubs. Lungs: Diminished breath sounds bilaterally scattered rhonchi noted Abdomen: [No mass. No organomegaly. Bowel sounds presnt and normoactive in all 4 quadrants. This patient is morbidly obese Extremes: [4+ edema bilateral fingertips and toe tips are infarcting secondary to prolonged use of pressors : Normal female genitalia Skin: Multiple sites of ecchymosis on bilateral arms Neurologic: Patient is sedated on a ventilatory support Lymphatic: [No adenopathy.] - Labs CBC & Chem 7: 09/10/22 05:55 09/10/22 11:30 Labs: Abnormal Lab Results - Last 24 Hours (Table) 09/09/22 09/09/22 09/10/22 Range/Units 16:45 20:34 00:47 RBC (3.80-5.40) m/uL Hgb (11.4-16.0) gm/dL Hct (34.0-46.0) % MCHC (31.0-37.0) g/dL RDW (11.5-15.5) % Plt Count (150-450) k/uL Lymphocytes # (1.0-4.8) k/uL ABG pO2 (83-108) mmHg ABG Total CO2 (19-24) mmol/L ABG O2 Saturation (94-97) % Potassium (3.5-5.1) mmol/L BUN (7-17) mg/dL Creatinine (0.52-1.04) mg/dL Glucose (74-99) mg/dL POC Glucose (mg/dL) 136 H 189 H 244 H (70-110) mg/dL Calcium (8.4-10.2) mg/dL 09/10/22 09/10/22 09/10/22 Range/Units 05:50 05:55 05:55 RBC 2.56 L (3.80-5.40) m/uL Hgb 7.0 L (11.4-16.0) gm/dL Hct 22.7 L (34.0-46.0) % MCHC 30.7 L (31.0-37.0) g/dL RDW 22.5 H (11.5-15.5) % Plt Count 6 L* (150-450) k/uL Lymphocytes # 0.8 L (1.0-4.8) k/uL ABG pO2 126 H (83-108) mmHg ABG Total CO2 26 H (19-24) mmol/L ABG O2 Saturation 98.8 H (94-97) % Potassium 6.3 H* (3.5-5.1) mmol/L BUN 112 H* (7-17) mg/dL Creatinine 1.11 H (0.52-1.04) mg/dL Glucose 191 H (74-99) mg/dL POC Glucose (mg/dL) (70-110) mg/dL Calcium (8.4-10.2) mg/dL 09/10/22 09/10/22 09/10/22 Range/Units 08:30 11:30 11:30 RBC (3.80-5.40) m/uL Hgb (11.4-16.0) gm/dL Hct (34.0-46.0) % MCHC (31.0-37.0) g/dL RDW (11.5-15.5) % Plt Count (150-450) k/uL Lymphocytes # (1.0-4.8) k/uL ABG pO2 (83-108) mmHg ABG Total CO2 (19-24) mmol/L ABG O2 Saturation (94-97) % Potassium 6.2 H* (3.5-5.1) mmol/L BUN 115 H* (7-17) mg/dL Creatinine (0.52-1.04) mg/dL Glucose 200 H (74-99) mg/dL POC Glucose (mg/dL) 145 H 221 H (70-110) mg/dL Calcium 8.2 L (8.4-10.2) mg/dL Microbiology - Last 24 Hours (Table) 09/09/22 10:50 Blood Culture - Preliminary Blood No Growth after 24 hours Assessment and Plan (1) Sepsis Current Visit: Yes Status: Acute Code(s): A41.9 - SEPSIS, UNSPECIFIED ORGANISM SNOMED Code(s): 55366083 (2) Acquired hypothyroidism Current Visit: No Status: Acute Code(s): E03.9 - HYPOTHYROIDISM, UNSPECIFIED SNOMED Code(s): 997159374 (3) Acute exacerbation of chronic obstructive pulmonary disease Current Visit: Yes Status: Acute Code(s): J44.1 - CHRONIC OBSTRUCTIVE PULMONARY DISEASE W (ACUTE) EXACERBATION SNOMED Code(s): 757926150 (4) Acute on chronic diastolic (congestive) heart failure Current Visit: No Status: Acute Code(s): I50.33 - ACUTE ON CHRONIC DIASTOLIC (CONGESTIVE) HEART FAILURE SNOMED Code(s): 354235545 (5) Acute on chronic renal failure Current Visit: No Status: Acute Code(s): N17.9 - ACUTE KIDNEY FAILURE, UNSPECIFIED; N18.9 - CHRONIC KIDNEY DISEASE, UNSPECIFIED SNOMED Code(s): 441268468 (6) Acute pulmonary edema Current Visit: No Status: Acute Code(s): J81.0 - ACUTE PULMONARY EDEMA S NOMED Code(s): 78941691 (7) Acute renal failure Current Visit: No Status: Acute Code(s): N17.9 - ACUTE KIDNEY FAILURE, UNSPECIFIED SNOMED Code(s): 20459950 (8) Altered mental status Current Visit: No Status: Acute Code(s): R41.82 - ALTERED MENTAL STATUS, UNSPECIFIED SNOMED Code(s): 001802690 (9) Anemia Current Visit: Yes Status: Acute Priority: High Code(s): D64.9 - ANEMIA, UNSPECIFIED SNOMED Code(s): 339051873 (10) CAD (coronary atherosclerotic disease) Current Visit: No Status: Acute Code(s): I25.10 - ATHSCL HEART DISEASE OF [place] CORONARY ARTERY W/O ANG PCTRS SNOMED Code(s): 647868323 (11) CHF (congestive heart failure) Current Visit: No Status: Acute Code(s): I50.9 - HEART FAILURE, UNSPECIFIED SNOMED Code(s): 72039100 (12) CKD (chronic kidney disease) stage 3, GFR 30-59 ml/min Current Visit: No Status: Acute Code(s): N18.30 - CHRONIC KIDNEY DISEASE, STAGE 3 UNSPECIFIED SNOMED Code(s): 876567971 (13) COPD exacerbation Current Visit: No Status: Acute Code(s): J44.1 - CHRONIC OBSTRUCTIVE PULMONARY DISEASE W (ACUTE) EXACERBATION SNOMED Code(s): 752147637 (14) COVID-19 Current Visit: No Status: Acute Code(s): U07.1 - COVID-19 SNOMED Code(s): 531002280 (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 Current Visit: No Status: Acute Code(s): M54.42 - LUMBAGO WITH SCIATICA, LEFT SIDE; M54.41 - LUMBAGO WITH SCIATICA, RIGHT SIDE; G89.29 - OTHER CHRONIC PAIN SNOMED Code(s): 509545286 Plan: Acute kidney injury secondary to urinary sepsis, slowly improving Hypotension secondary to sepsis, improved Acute respiratory failure ventilator dependent Left lower lobe pneumonia Urinary tract infection secondary to Pseudomonas and enterococcus improving Elevated liver function secondary to sepsis Aggressive supportive care being provided Prognosis poor secondary to multiorgan failure ventilator dependence and acute kidney injury Tracheostomy placed, This has been discussed with and daughter multiple times Time with Patient: Greater than 30
--- NOTE | 2022-09-10 15:22 | P.PN ---
Subjective Progress Note Date: 09/10/22 Principal diagnosis: Sepsis/septic shock Patient is a 87-year-old female with multiple comorbidities presented to the hospital with a syncopal episode weakness subsequently hypotension, sepsis requiring transfer to the ICU and intubation on the vent. She patient did have a CT of abdominal pelvis completed on 08/20/2022 with evidence of pneumoperitoneum Gen. surgery discussed with the family currently being treated medically On today's evaluation that is 09/10/2022, the patient continues to be afebrile, the patient remains to be on same amount of pressor support to maintain her blood pressure per the nursing staff, the patient FiO2 is stable at 40 %, no purulent secretions through the ET , patient did have NG to suction, however has been restarted on her tube feeds, patient did have a fecal management system for her diarrhea, and no worsening output Objective - Vital Signs Vital signs: Vital Signs Temp 97.6 F 09/10/22 12:00 Pulse 106 H 09/10/22 12:17 Resp 24 09/10/22 12:00 BP 112/61 09/10/22 08:00 Pulse Ox 100 09/10/22 12:00 FiO2 40 09/10/22 12:00 Intake & Output 09/09/22 09/10/22 09/10/22 17:59 06:59 18:59 Intake Total 633.519 Output Total 80 Balance 553.519 Intake: IV 408 0.9% @ KVO 75 Anidulafungin 100 mg In Sodium Chloride 0.9% 100 ml @ 84 mls/hr IVPB Q24H [facility] Rx#:[id number] Ceftolozane/Tazobactam 1. 100 5 gm In Sodium Chloride 0 .9% 100 ml @ 100 mls/hr IV Q8HR [facility] Rx#:[id number] Lacosamide IV 150 mg In 50 Sodium Chloride 0.9% 50 ml @ 100 mls/hr IVPB BID [facility] Rx#:[id number] Mvi, Adult No.4 with Vit 65 K 10 ml Trace (Conc-1Ml/ Dose) 1 ml Potassium Phosphate 9 mmol Sodium Acetate 30 meq Potassium Chloride 80 meq Magnesium Sulfate gm 1 gm Sodium Chloride 4Meq/ml Vial 100 meq Calcium Gluconate 3 gm In Amino Acids 5 %/ Dextrose 20 % 1,000 ml @ 65 mls/hr IV .BY DURATION [facility] Rx#:[id number] Normal Saline: Pressure 18 Bag Phenytoin Sodium Inj 300 mg In Sodium Chloride 0.9 % 50 ml @ 80 mls/hr IVPB Q12H [facility] Rx#:[id number] levETIRAcetam IV 1,000 mg 100 In Saline 1 100ml.bag @ 400 mls/hr IVPB Q12HR [facility] Rx#:[id number] Intake, IV Titration 225.519 Amount Ceftolozane/Tazobactam 1. 100 5 gm In Sodium Chloride 0 .9% 100 ml @ 100 mls/hr IV Q8HR [facility] Rx#:[id number] Norepinephrine 32 mg In 125.519 Sodium Chloride 0.9% 218 ml @ 0.5 MCG/KG/MIN 25. 547 mls/hr IV .Q9H48M [facility] Rx#:[id number] Tube Feeding Other Output: Urine 80 Other: Voiding Method Indwelling Catheter ABP, PAP, CO, CI - Last Documented Arterial Blood Pressure 101/47 - Exam GENERAL DESCRIPTION: An elderly female intubated on the vent RESPIRATORY SYSTEM: Unlabored breathing , decreased breath sounds at bases HEART: S1 S2 regular rate and rhythm , ABDOMEN: Soft , abdominal distention EXTREMITIES: Diffuse swelling bilateral lower extremity no redness - Labs CBC & Chem 7: 09/10/22 05:55 09/10/22 11:30 Labs: Abnormal Lab Results - Last 24 Hours (Table) 09/09/22 09/09/22 09/10/22 Range/Units 16:45 20:34 00:47 RBC (3.80-5.40) m/uL Hgb (11.4-16.0) gm/dL Hct (34.0-46.0) % MCHC (31.0-37.0) g/dL RDW (11.5-15.5) % Plt Count (150-450) k/uL Lymphocytes # (1.0-4.8) k/uL ABG pO2 (83-108) mmHg ABG Total CO2 (19-24) mmol/L ABG O2 Saturation (94-97) % Potassium (3.5-5.1) mmol/L BUN (7-17) mg/dL Creatinine (0.52-1.04) mg/dL Glucose (74-99) mg/dL POC Glucose (mg/dL) 136 H 189 H 244 H (70-110) mg/dL Calcium (8.4-10.2) mg/dL 09/10/22 09/10/22 09/10/22 Range/Units 05:50 05:55 05:55 RBC 2.56 L (3.80-5.40) m/uL Hgb 7.0 L (11.4-16.0) gm/dL Hct 22.7 L (34.0-46.0) % MCHC 30.7 L (31.0-37.0) g/dL RDW 22.5 H (11.5-15.5) % Plt Count 6 L* (150-450) k/uL Lymphocytes # 0.8 L (1.0-4.8) k/uL ABG pO2 126 H (83-108) mmHg ABG Total CO2 26 H (19-24) mmol/L ABG O2 Saturation 98.8 H (94-97) % Potassium 6.3 H* (3.5-5.1) mmol/L BUN 112 H* (7-17) mg/dL Creatinine 1.11 H (0.52-1.04) mg/dL Glucose 191 H (74-99) mg/dL POC Glucose (mg/dL) (70-110) mg/dL Calcium (8.4-10.2) mg/dL 09/10/22 09/10/22 09/10/22 Range/Units 08:30 11:30 11:30 RBC (3.80-5.40) m/uL Hgb (11.4-16.0) gm/dL Hct (34.0-46.0) % MCHC (31.0-37.0) g/dL RDW (11.5-15.5) % Plt Count (150-450) k/uL Lymphocytes # (1.0-4.8) k/uL ABG pO2 (83-108) mmHg ABG Total CO2 (19-24) mmol/L ABG O2 Saturation (94-97) % Potassium 6.2 H* (3.5-5.1) mmol/L BUN 115 H* (7-17) mg/dL Creatinine (0.52-1.04) mg/dL Glucose 200 H (74-99) mg/dL POC Glucose (mg/dL) 145 H 221 H (70-110) mg/dL Calcium 8.2 L (8.4-10.2) mg/dL Microbiology - Last 24 Hours (Table) 09/09/22 10:50 Blood Culture - Preliminary Blood No Growth after 24 hours Assessment and Plan (1) Sepsis Current Visit: Yes Status: Acute Code(s): A41.9 - SEPSIS, UNSPECIFIED OR GANISM SNOMED Code(s): 58954850 Plan: 1patient was in the hospital with sepsis and septic shock initially concern for multidrug-resistant Pseudomonas UTI, patient also have a candidemia secondary to possible abdominal source, patient did have evidence of colonic perforation and peritonitis being managed medically as the patient considered to be high risk for any surgical procedure , will continue with Zerbexa and Eraxis 3patient did have VRE bacteremia and could be related to the multiple lines versus abdominal source, patient did have a repeat blood cultures on 08/29/2022 those are negative so far, patient's sputum was positive for MRSA, patient has received more than 2 weeks of IV Zyvox which should be more than enough for the bacteremia as well as pneumonia, the patient Zyvox was discontinued 09/09/2022 and clinical condition and will be monitored closely at the bedside questions concerned were answered
[2022-09-10 16:51] LABS: Glucose,Whole Blood 210 mg/dL (70-110)
[2022-09-10 18:44] LABS: Calcium 8.2 mg/dL (8.4-10.2)
[2022-09-10] MEDS: VASOPRESSIN 60 UNIT in SODIUM CHLORIDE 0.9% 150 ML IV SCH (18:46)
[2022-09-10 19:56] LABS: Glucose,Whole Blood 86 mg/dL (70-110)
[2022-09-10] MEDS: INSULIN DETEMIR (LEVEMIR) 100 UNIT/ML SYR SQ SCH (20:05)
[2022-09-10 22:15] LABS: Glucose,Whole Blood 79 mg/dL (70-110)
[2022-09-10 23:00] LABS: Glucose,Whole Blood 86 mg/dL (70-110)
[2022-09-10 23:29] LABS: Anisocytosis Moderate; Basophils # (A) 0.1 k/uL (0-0.2); Basophils % (A) 1 %; Eosinophils % (A) 0 %; HCT 21.1 % (34.0-46.0); Hypochromasia Moderate; Lymphocytes # (A) 0.7 k/uL (1.0-4.8); Lymphocytes % (A) 7 %; MCHC 29.9 g/dL (31.0-37.0); MCV 90.1 fL (80.0-100.0); Macrocytosis Slight; Mean Platelet Volume 11.1; Monocytes # (A) 0.5 k/uL (0-1.0); Monocytes % (A) 5 %; Neutrophils # (A) 8.5 k/uL (1.3-7.7); Neutrophils % (A) 85 %; Poikilocytosis Slight; RBC 2.34 m/uL (3.80-5.40); RDW 22.3 % (11.5-15.5)
[2022-09-10 23:31] LABS: HGB 6.3 gm/dL (11.4-16.0)
[2022-09-10 23:36] LABS: Platelet Count 49 k/uL (150-450)
[2022-09-10 23:53] LABS: Glucose,Whole Blood 87 mg/dL (70-110)
[2022-09-11 02:08] LABS: Glucose,Whole Blood 60 mg/dL (70-110)
[2022-09-11] MEDS: DEXTROSE 50% SYRINGE 50 ML IVP PRN ×6 (02:09→11:37)
[2022-09-11 03:15] VITALS: BP 93/37
[2022-09-11] MEDS: INSULIN ASPART (NovoLOG) 100 UNIT/ML VIAL SQ SCH ×2 (03:15→08:09)
[2022-09-11] MEDS: NOREPINEPHRINE 32 MG in SODIUM CHLORIDE 0.9% 218 ML IV SCH (03:50)
[2022-09-11] MEDS: ANIDULAFUNGIN 100 MG in SODIUM CHLORIDE 0.9% 100 ML IVPB SCH (03:51)
[2022-09-11 04:02] LABS: Glucose,Whole Blood 69 mg/dL (70-110)
[2022-09-11 04:20] LABS: Calcium 8.1 mg/dL (8.4-10.2); Magnesium 2.6 mg/dL (1.6-2.3); Phosphorus 4.9 mg/dL (2.5-4.5)
[2022-09-11 04:42] LABS: Potassium 6.5 mmol/L (3.5-5.1)
[2022-09-11 04:44] LABS: Anisocytosis Moderate; Basophils % (A) 0 %; Eosinophils % (A) 0 %; HCT 25.3 % (34.0-46.0); Hypochromasia Marked; Lymphocytes # (A) 0.9 k/uL (1.0-4.8); Lymphocytes % (A) 7 %; MCH 28.2 pg (25.0-35.0); MCHC 30.9 g/dL (31.0-37.0); MCV 91.1 fL (80.0-100.0); Macrocytosis Slight; Mean Platelet Volume 11.5; Monocytes # (A) 0.5 k/uL (0-1.0); Monocytes % (A) 4 %; Neutrophils # (A) 9.8 k/uL (1.3-7.7); Neutrophils % (A) 86 %; Poikilocytosis Moderate; RBC 2.78 m/uL (3.80-5.40); RDW 20.6 % (11.5-15.5); WBC 11.5 k/uL (3.8-10.6)
[2022-09-11 04:49] LABS: HGB 7.8 gm/dL (11.4-16.0); Platelet Count 46 k/uL (150-450)
[2022-09-11 05:40] LABS: ABG Base Excess -15.7 mmol/L; ABG HCO3 14 mmol/L (21-25); ABG Oxygen Saturation 96.8 % (94-97); ABG PCO2 42 mmHg (35-45); ABG PO2 108 mmHg (83-108); ABG TCO2 15 mmol/L (19-24); Allen Test Performed? Yes
[2022-09-11 05:47] LABS: ABG PH 7.12 (7.35-7.45)
[2022-09-11 05:48] LABS: Glucose,Whole Blood 66 mg/dL (70-110)
[2022-09-11 07:06] LABS: Glucose,Whole Blood 85 mg/dL (70-110)
[2022-09-11] MEDS: levETIRAcetam IV 1,000 MG in SALINE 1 100ML.BAG IVPB SCH (07:53)
[2022-09-11] MEDS: FUROSEMIDE 10 MG/ML 4 ML VIAL IV SCH (07:58)
[2022-09-11] MEDS: PANTOPRAZOLE 40 MG/10 ML VIAL IVP SCH (07:58)
[2022-09-11] MEDS: CEFTOLOZANE/TAZOBACTAM 1.5 GM in SODIUM CHLORIDE 0.9% 100 ML IV SCH (07:58)
[2022-09-11] MEDS: MIDODRINE 5 MG TAB PO SCH (07:59)
[2022-09-11] MEDS: PHENYTOIN SODIUM INJ 200 MG in SODIUM CHLORIDE 0.9% 36 ML IVPB SCH (07:59)
[2022-09-11] MEDS: metOLazone 5 MG TAB PO SCH (07:59)
[2022-09-11] MEDS: AMIODARONE 200 MG TAB PO SCH (07:59)
[2022-09-11] MEDS: IPRATROPIUM 0.5 MG/2.5 ML NEBU INHALATION SCH ×2 (08:07→11:36)
[2022-09-11] MEDS: ALBUTEROL NEBULIZED 2.5 MG/3 ML INHALATION SCH ×2 (08:07→11:37)
[2022-09-11 08:09] LABS: Glucose,Whole Blood 150 mg/dL (70-110)
[2022-09-11 08:10] VITALS: TEMP 98.2
[2022-09-11 09:09] VITALS: RESP 30
[2022-09-11] MEDS: LACOSAMIDE IV 150 MG in SODIUM CHLORIDE 0.9% 50 ML IVPB SCH (09:44)
[2022-09-11 10:03] LABS: Glucose,Whole Blood 44 mg/dL (70-110)
[2022-09-11 11:04] LABS: Glucose,Whole Blood 88 mg/dL (70-110)
--- NOTE | 2022-09-11 11:05 | P.PN ---
Subjective Patient is seen for follow-up for acute kidney injury, mostly ATN. Etiology is sepsis with fungemia and UTI with urine cultures growing Pseudomonas and enterococcus. Patient's general condition has been progressively declining. She is currently maintained on max dose of levo fed. Systolic blood pressure is in the 60s. Potassium was elevated at 6.5 and family is present at bedside. They have been advised that patient is not a candidate for renal replacement therapy. Objective - Vital Signs Vital signs: Vital Signs Temp 98.2 F 09/11/22 08:00 Pulse 70 09/11/22 09:00 Resp 30 H 09/11/22 09:00 BP 93/37 09/11/22 03:15 Pulse Ox 95 09/11/22 09:00 FiO2 40 09/11/22 08:07 Intake & Output 09/10/22 09/11/22 09/11/22 18:59 06:59 18:59 Intake Total 6521.054 7767.768 182 Output Total 130 90 0 Balance 847.523 0946.768 182 Weight 124.9 kg Intake: IV 498 946 132 0.9% @ KVO 150 60 20 Anidulafungin 100 mg In 200 Sodium Chloride 0.9% 100 ml @ 84 mls/hr IVPB Q24H [facility] Rx#:[id number] Ceftolozane/Tazobactam 1. 100 100 100 5 gm In Sodium Chloride 0 .9% 100 ml @ 100 mls/hr IV Q8HR [facility] Rx#:[id number] Lacosamide IV 150 mg In 50 50 Sodium Chloride 0.9% 50 ml @ 100 mls/hr IVPB BID [facility] Rx#:[id number] Mvi, Adult No.4 with Vit 65 K 10 ml Trace (Conc-1Ml/ Dose) 1 ml Potassium Phosphate 9 mmol Sodium Acetate 30 meq Potassium Chloride 80 meq Magnesium Sulfate gm 1 gm Sodium Chloride 4Meq/ml Vial 100 meq Calcium Gluconate 3 gm In Amino Acids 5 %/ Dextrose 20 % 1,000 ml @ 65 mls/hr IV .BY DURATION [facility] Rx#:[id number] Normal Saline: Pressure 33 36 12 Bag PRBCs 350 Phenytoin Sodium Inj 300 50 mg In Sodium Chloride 0.9 % 50 ml @ 80 mls/hr IVPB Q12H [facility] Rx#:[id number] levETIRAcetam IV 1,000 mg 100 100 In Saline 1 100ml.bag @ 400 mls/hr IVPB Q12HR [facility] Rx#:[id number] Intake, IV Titration 241.667 362.768 50 Amount Ceftolozane/Tazobactam 1. 110 5 gm In Sodium Chloride 0 .9% 100 ml @ 100 mls/hr IV Q8HR [facility] Rx#:[id number] Norepinephrine 32 mg In 131.667 362.768 Sodium Chloride 0.9% 218 ml @ 0.5 MCG/KG/MIN 25. 547 mls/hr IV .Q9H48M [facility] Rx#:[id number] Phenytoin Sodium Inj 300 50 mg In Sodium Chloride 0.9 % 50 ml @ 80 mls/hr IVPB Q12H [facility] Rx#:[id number] Blood Product 344 310 Platelet Pheresis Pas 344 Psoralen Unit [id number] Rc As-1 Unit 310 [id number] Other 100 Output: Urine 130 90 0 Other: Voiding Method Indwelling Catheter Indwelling Catheter Indwelling Catheter ABP, PAP, CO, CI - Last Documented Arterial Blood Pressure 74/21 - Exam Patient is on the vent Significant edema noted Very pale in color Rest of the exam not performed - Labs CBC & Chem 7: 09/11/22 04:00 09/11/22 04:00 Labs: Abnormal Lab Results - Last 24 Hours (Table) 09/08/22 09/10/22 09/10/22 Range/Units 15:00 11:30 11:30 WBC (3.8-10.6) k/uL RBC (3.80-5.40) m/uL Hgb (11.4-16.0) gm/dL Hct (34.0-46.0) % MCHC (31.0-37.0) g/dL RDW (11.5-15.5) % Plt Count (150-450) k/uL Neutrophils # (1.3-7.7) k/uL Lymphocytes # (1.0-4.8) k/uL ABG pH (7.35-7.45) ABG HCO3 (21-25) mmol/L ABG Total CO2 (19-24) mmol/L Potassium 6.2 H* (3.5-5.1) mmol/L Carbon Dioxide (22-30) mmol/L BUN 115 H* (7-17) mg/dL Creatinine (0.52-1.04) mg/dL Glucose 200 H (74-99) mg/dL POC Glucose (mg/dL) 221 H (70-110) mg/dL Calcium 8.2 L (8.4-10.2) mg/dL Phosphorus (2.5-4.5) mg/dL Magnesium (1.6-2.3) mg/dL Crossmatch See Detail 09/10/22 09/10/22 09/10/22 Range/Units 16:40 16:50 23:00 WBC (3.8-10.6) k/uL RBC (3.80-5.40) m/uL Hgb (11.4-16.0) gm/dL Hct (34.0-46.0) % MCHC (31.0-37.0) g/dL RDW (11.5-15.5) % Plt Count (150-450) k/uL Neutrophils # (1.3-7.7) k/uL Lymphocytes # (1.0-4.8) k/uL ABG pH (7.35-7.45) ABG HCO3 (21-25) mmol/L ABG Total CO2 (19-24) mmol/L Potassium 6.0 H 6.1 H* (3.5-5.1) mmol/L Carbon Dioxide (22-30) mmol/L BUN 113 H* (7-17) mg/dL Creatinine 1.13 H (0.52-1.04) mg/dL Glucose 193 H (74-99) mg/dL POC Glucose (mg/dL) 210 H (70-110) mg/dL Calcium 8.2 L (8.4-10.2) mg/dL Phosphorus (2.5-4.5) mg/dL Magnesium (1.6-2.3) mg/dL Crossmatch 09/10/22 09/11/22 09/11/22 Range/Units 23:23 02:06 03:58 WBC (3.8-10.6) k/uL RBC 2.34 L (3.80-5.40) m/uL Hgb 6.3 L* (11.4-16.0) gm/dL Hct 21.1 L (34.0-46.0) % MCHC 29.9 L (31.0-37.0) g/dL RDW 22.3 H (11.5-15.5) % Plt Count 49 L D (150-450) k/uL Neutrophils # 8.5 H (1.3-7.7) k/uL Lymphocytes # 0.7 L (1.0-4.8) k/uL ABG pH (7.35-7.45) ABG HCO3 (21-25) mmol/L ABG Total CO2 (19-24) mmol/L Potassium (3.5-5.1) mmol/L Carbon Dioxide (22-30) mmol/L BUN (7-17) mg/dL Creatinine (0.52-1.04) mg/dL Glucose (74-99) mg/dL POC Glucose (mg/dL) 60 L 69 L (70-110) mg/dL Calcium (8.4-10.2) mg/dL Phosphorus (2.5-4.5) mg/dL Magnesium (1.6-2.3) mg/dL Crossmatch 09/11/22 09/11/22 09/11/22 Range/Units 04:00 04:00 05:40 WBC 11.5 H (3.8-10.6) k/uL RBC 2.78 L (3.80-5.40) m/uL Hgb 7.8 L D (11.4-16.0) gm/dL Hct 25.3 L (34.0-46.0) % MCHC 30.9 L (31.0-37.0) g/dL RDW 20.6 H (11.5-15.5) % Plt Count 46 L (150-450) k/uL Neutrophils # 9.8 H (1.3-7.7) k/uL Lymphocytes # 0.9 L (1.0-4.8) k/uL ABG pH 7.12 L* (7.35-7.45) ABG HCO3 14 L (21-25) mmol/L ABG Total CO2 15 L (19-24) mmol/L Potassium 6.5 H* (3.5-5.1) mmol/L Carbon Dioxide 19 L (22-30) mmol/L BUN 118 H* (7-17) mg/dL Creatinine 1.14 H (0.52-1.04) mg/dL Glucose 69 L (74-99) mg/dL POC Glucose (mg/dL) (70-110) mg/dL Calcium 8.1 L (8.4-10.2) mg/dL Phosphorus 4.9 H (2.5-4.5) mg/dL Magnesium 2.6 H (1.6-2.3) mg/dL Crossmatch 09/11/22 09/11/22 09/11/22 Range/Units 05:47 08:08 10:01 WBC (3.8-10.6) k/uL RBC (3.80-5.40) m/uL Hgb (11.4-16.0) gm/dL Hct (34.0-46.0) % MCHC (31.0-37.0) g/dL RDW (11.5-15.5) % Plt Count (150-450) k/uL Neutrophils # (1.3-7.7) k/uL Lymphocytes # (1.0-4.8) k/uL ABG pH (7.35-7.45) ABG HCO3 (21-25) mmol/L ABG Total CO2 (19-24) mmol/L Potassium (3.5-5.1) mmol/L Carbon Dioxide (22-30) mmol/L BUN (7-17) mg/dL Creatinine (0.52-1.04) mg/dL Glucose (74-99) mg/dL POC Glucose (mg/dL) 66 L 150 H 44 L (70-110) mg/dL Calcium (8.4-10.2) mg/dL Phosphorus (2.5-4.5) mg/dL Magnesium (1.6-2.3) mg/dL Crossmatch Microbiology - Last 24 Hours (Table) 09/09/22 10:50 Blood Culture - Preliminary Blood No Growth after 24 hours Assessment and Plan Assessment: 1. Acute kidney injury secondary to ATN from underlying infection with fungemia and urine tract infection with Pseudomonas and enterococcus. 2. Hypotension secondary to sepsis 3. Ventilator dependent respiratory failure, stable 40% FiO2 status post trach and PEG 3. Left lower lobe pneumonia 4. UTI with Pseudomonas and enterococcus. 5. Hypocalcemia secondary to acute kidney injury. Severe nutritional vitamin D deficiency noted 6. Seizures, maintained on Keppra 7. Severe volume overload and third spacing 8. Hyperkalemia associated with acute kidney injury severe metabolic acidosis Plan: No plans on hemodialysis. Patient's family is at eyes that patient is actively passing away.
[2022-09-11 11:41] VITALS: PULSE 56
--- NOTE | 2022-09-11 11:51 | P.PN ---
Subjective Progress Note Date: 09/11/22 Principal diagnosis: Sepsis/septic shock Patient is a 87-year-old female with multiple comorbidities presented to the hospital with a syncopal episode weakness subsequently hypotension, sepsis requiring transfer to the ICU and intubation on the vent. She patient did have a CT of abdominal pelvis completed on 08/20/2022 with evidence of pneumoperitoneum Gen. surgery discussed with the family currently being treated medically On today's evaluation that is 09/11/2022, the patient remains to be afebrile, the patient is requiring more pressor support to maintain her blood pressure per the nursing staff, the patient FiO2 is stable at 40 %, no purulent secretions throu gh the ET , patient did have NG to suction, patient did have a fecal management system for her diarrhea, patient seemed to have problem with elevated progression and arrhythmia last night, the patient platelet count has come up to 46,000 and no active bleeding reported by the nursing staff Objective - Vital Signs Vital signs: Vital Signs Temp 98.2 F 09/11/22 08:00 Pulse 70 09/11/22 09:00 Resp 30 H 09/11/22 09:00 BP 93/37 09/11/22 03:15 Pulse Ox 95 09/11/22 09:00 FiO2 40 09/11/22 08:07 Intake & Output 09/10/22 09/11/22 09/11/22 18:59 06:59 18:59 Intake Total 4223.005 2691.768 182 Output Total 130 90 0 Balance 974.007 6510.768 182 Intake: IV 498 946 132 0.9% @ KVO 150 60 20 Anidulafungin 100 mg In 200 Sodium Chloride 0.9% 100 ml @ 84 mls/hr IVPB Q24H [facility] Rx#:[id number] Ceftolozane/Tazobactam 1. 100 100 100 5 gm In Sodium Chloride 0 .9% 100 ml @ 100 mls/hr IV Q8HR [facility] Rx#:[id number] Lacosamide IV 150 mg In 50 50 Sodium Chloride 0.9% 50 ml @ 100 mls/hr IVPB BID [facility] Rx#:[id number] Mvi, Adult No.4 with Vit 65 K 10 ml Trace (Conc-1Ml/ Dose) 1 ml Potassium Phosphate 9 mmol Sodium Acetate 30 meq Potassium Chloride 80 meq Magnesium Sulfate gm 1 gm Sodium Chloride 4Meq/ml Vial 100 meq Calcium Gluconate 3 gm In Amino Acids 5 %/ Dextrose 20 % 1,000 ml @ 65 mls/hr IV .BY DURATION [facility] Rx#:[id number] Normal Saline: Pressure 33 36 12 Bag PRBCs 350 Phenytoin Sodium Inj 300 50 mg In Sodium Chloride 0.9 % 50 ml @ 80 mls/hr IVPB Q12H [facility] Rx#:[id number] levETIRAcetam IV 1,000 mg 100 100 In Saline 1 100ml.bag @ 400 mls/hr IVPB Q12HR [facility] Rx#:[id number] Intake, IV Titration 241.667 362.768 50 Amount Ceftolozane/Tazobactam 1. 110 5 gm In Sodium Chloride 0 .9% 100 ml @ 100 mls/hr IV Q8HR [facility] Rx#:[id number] Norepinephrine 32 mg In 131.667 362.768 Sodium Chloride 0.9% 218 ml @ 0.5 MCG/KG/MIN 25. 547 mls/hr IV .Q9H48M [facility] Rx#:[id number] Phenytoin Sodium Inj 300 50 mg In Sodium Chloride 0.9 % 50 ml @ 80 mls/hr IVPB Q12H [facility] Rx#:[id number] Blood Product 344 310 Platelet Pheresis Pas 344 Psoralen Unit [id number] Rc As-1 Unit 310 [id number] Other 100 Output: Urine 130 90 0 Other: Voiding Method Indwelling Catheter Indwelling Catheter Indwelling Catheter ABP, PAP, CO, CI - Last Documented Arterial Blood Pressure 74/21 - Exam GENERAL DESCRIPTION: An elderly female intubated on the vent RESPIRATORY SYSTEM: Unlabored breathing , decreased breath sounds at bases HEART: S1 S2 regular rate and rhythm , ABDOMEN: Soft , abdominal distention EXTREMITIES: Diffuse swelling bilateral lower extremity no redness - Labs CBC & Chem 7: 09/11/22 04:00 09/11/22 04:00 Labs: Abnormal Lab Results - Last 24 Hours (Table) 09/08/22 09/10/22 09/10/22 Range/Units 15:00 11:30 11:30 WBC (3.8-10.6) k/uL RBC (3.80-5.40) m/uL Hgb (11.4-16.0) gm/dL Hct (34.0-46.0) % MCHC (31.0-37.0) g/dL RDW (11.5-15.5) % Plt Count (150-450) k/uL Neutrophils # (1.3-7.7) k/uL Lymphocytes # (1.0-4.8) k/uL ABG pH (7.35-7.45) ABG HCO3 (21-25) mmol/L ABG Total CO2 (19-24) mmol/L Potassium 6.2 H* (3.5-5.1) mmol/L Carbon Dioxide (22-30) mmol/L BUN 115 H* (7-17) mg/dL Creatinine (0.52-1.04) mg/dL Glucose 200 H (74-99) mg/dL POC Glucose (mg/dL) 221 H (70-110) mg/dL Calcium 8.2 L (8.4-10.2) mg/dL Phosphorus (2.5-4.5) mg/dL Magnesium (1.6-2.3) mg/dL Crossmatch See Detail 09/10/22 09/10/22 09/10/22 Range/Units 16:40 16:50 23:00 WBC (3.8-10.6) k/uL RBC (3.80-5.40) m/uL Hgb (11.4-16.0) gm/dL Hct (34.0-46.0) % MCHC (31.0-37.0) g/dL RDW (11.5-15.5) % Plt Count (150-450) k/uL Neutrophils # (1.3-7.7) k/uL Lymphocytes # (1.0-4.8) k/uL ABG pH (7.35-7.45) ABG HCO3 (21-25) mmol/L ABG Total CO2 (19-24) mmol/L Potassium 6.0 H 6.1 H* (3.5-5.1) mmol/L Carbon Dioxide (22-30) mmol/L BUN 113 H* (7-17) mg/dL Creatinine 1.13 H (0.52-1.04) mg/dL Glucose 193 H (74-99) mg/dL POC Glucose (mg/dL) 210 H (70-110) mg/dL Calcium 8.2 L (8.4-10.2) mg/dL Phosphorus (2.5-4.5) mg/dL Magnesium (1.6-2.3) mg/dL Crossmatch 09/10/22 09/11/22 09/11/22 Range/Units 23:23 02:06 03:58 WBC (3.8-10.6) k/uL RBC 2.34 L (3.80-5.40) m/uL Hgb 6.3 L* (11.4-16.0) gm/dL Hct 21.1 L (34.0-46.0) % MCHC 29.9 L (31.0-37.0) g/dL RDW 22.3 H (11.5-15.5) % Plt Count 49 L D (150-450) k/uL Neutrophils # 8.5 H (1.3-7.7) k/uL Lymphocytes # 0.7 L (1.0-4.8) k/uL ABG pH (7.35-7.45) ABG HCO3 (21-25) mmol/L ABG Total CO2 (19-24) mmol/L Potassium (3.5-5.1) mmol/L Carbon Dioxide (22-30) mmol/L BUN (7-17) mg/dL Creatinine (0.52-1.04) mg/dL Glucose (74-99) mg/dL POC Glucose (mg/dL) 60 L 69 L (70-110) mg/dL Calcium (8.4-10.2) mg/dL Phosphorus (2.5-4.5) mg/dL Magnesium (1.6-2.3) mg/dL Crossmatch 09/11/22 09/11/22 09/11/22 Range/Units 04:00 04:00 05:40 WBC 11.5 H (3.8-10.6) k/uL RBC 2.78 L (3.80-5.40) m/uL Hgb 7.8 L D (11.4-16.0) gm/dL Hct 25.3 L (34.0-46.0) % MCHC 30.9 L (31.0-37.0) g/dL RDW 20.6 H (11.5-15.5) % Plt Count 46 L (150-450) k/uL Neutrophils # 9.8 H (1.3-7.7) k/uL Lymphocytes # 0.9 L (1.0-4.8) k/uL ABG pH 7.12 L* (7.35-7.45) ABG HCO3 14 L (21-25) mmol/L ABG Total CO2 15 L (19-24) mmol/L Potassium 6.5 H* (3.5-5.1) mmol/L Carbon Dioxide 19 L (22-30) mmol/L BUN 118 H* (7-17) mg/dL Creatinine 1.14 H (0.52-1.04) mg/dL Glucose 69 L (74-99) mg/dL POC Glucose (mg/dL) (70-110) mg/dL Calcium 8.1 L (8.4-10.2) mg/dL Phosphorus 4.9 H (2.5-4.5) mg/dL Magnesium 2.6 H (1.6-2.3) mg/dL Crossmatch 09/11/22 09/11/22 09/11/22 Range/Units 05:47 08:08 10:01 WBC (3.8-10.6) k/uL RBC (3.80-5.40) m/uL Hgb (11.4-16.0) gm/dL Hct (34.0-46.0) % MCHC (31.0-37.0) g/dL RDW (11.5-15.5) % Plt Count (150-450) k/uL Neutrophils # (1.3-7.7) k/uL Lymphocytes # (1.0-4.8) k/uL ABG pH (7.35-7.45) ABG HCO3 (21-25) mmol/L ABG Total CO2 (19-24) mmol/L Potassium (3.5-5.1) mmol/L Carbon Dioxide (22-30) mmol/L BUN (7-17) mg/dL Creatinine (0.52-1.04) mg/dL Glucose (74-99) mg/dL POC Glucose (mg/dL) 66 L 150 H 44 L (70-110) mg/dL Calcium (8.4-10.2) mg/dL Phosphorus (2.5-4.5) mg/dL Magnesium (1.6-2.3) mg/dL Crossmatch Microbiology - Last 24 Hours (Table) 09/09/22 10:50 Blood Culture - Preliminary Blood No Growth after 24 hours Assessment and Plan (1) Sepsis Current Visit: Yes Status: Acute Code(s): A41.9 - SEPSIS, UNSPECIFIED ORGANISM SNOMED Code(s): 63942867 Plan: 1patient did have VRE bacteremia and could be related to the multiple lines versus abdominal source, patient did have a repeat blood cultures on 08/29/2022 those are negative so far, patient's sputum was positive for MRSA, patient has received more than 2 weeks of IV Zyvox which should be more than enough for the bacteremia as well as pneumonia, the patient Zyvox was discontinued 09/09/2022 and the patient platelet count is up to 46,000 and no active bleeding has been reported by the nursing staff 2-patient was in the hospital with sepsis and septic shock initially concern for multidrug-resistant Pseudomonas UTI, patient also have a candidemia secondary to possible abdominal source, patient did have evidence of colonic perforation and peritonitis being managed medically as the patient considered to be high risk for any surgical procedure , patient currently being treated with Zerbexa and Eraxis, keeping in mind her worsening condition may benefit from comfort oriented care family the bedside questions were answered Time with Patient: Less than 30
--- NOTE | 2022-09-11 12:18 | P.PN ---
Subjective Progress Note Date: 09/11/22 Principal diagnosis: Acute on chronic hypoxic respiratory failure secondary to acute diastolic congestive heart failure, and septic shock. With abdominal sepsis and bowel perforation. 08/20/2022, I'm seeing the patient for a follow-up. Since yesterday, the patient has taken a turn to the worse. As of yesterday, the patient started having episodes of fever with a T-max of 103.1. At the same time, the patient's blood pressure was getting more soft and the patient was becoming more hypotensive in the urine output dropped considerably. As such, the patient had to be placed on a higher dose of pressors. The patient was given a total of 2 L of IV fluids. Vancomycin was also added to the regimen as the patient is taking currently a combination of Zerbaxa and Eraxis. On today's evaluation, the patient is still off sedation. The patient is on a mechanical ventilator on assist control mode of mechanical ventilation rate of 28 with a tidal volume of 400 and a PEEP of 5 and FiO2 of 40%. The chest x-ray shows limited bibasilar pulmonary infiltrates. ET tube is in a good location. No signs of any consolidation or pulmonary edema. The blood gas shows a pH of 7.2 with a pCO2 of 33 and a pO2 of 76. As such, the patient has become progressively more acidotic. Hemodynamically, the patient has become more hypotensive and the patient is currently on a combination of vasopressin physiologic dose and a norepinephrine had to be brought up to 0.2 mcg/kg/m. Urine output is extremely low at this point in time. The white cell count has come up to 26.6 from 19.9 a nd the hemoglobin is at 8.7. Noted the patient was given units of packed RBC for a hemoglobin of 6.9 yesterday and hemoglobin is at 8.7 today. The patient has become also acidotic. Urine is at 67 with a creatinine of 1.4. Serum bicarb is at 17 and this is a non-anion gap metabolic acidosis. Sodium is at 141 with a potassium level of 4.7. LFTs are normal. The patient is receiving TPN through a midline in the left upper extremity at the rate of 68 mL an hour. She also has a triple-lumen catheter in the left subclavian. The patient is in a positive fluid balance. The patient is still febrile. The patient is stooling. The laxatives have been discontinued. She is currently has a fecal management system in Place and stool was also sent for C. diff.. The patient is unresponsive to any verbal or painful stimulation at this point in time and she's been off sedation for the past 48 hours. His obvious component of metabolic encephalopathy secondary to ovulation comorbidities. She remains on amiodarone drip at 1 mg/m. She remains in atrial fibrillation. She is on anticoagulation with Eliquis 5 mg by mouth twice a day. Reevaluated today on 08/21/2022, patient remains on the ventilator, intubated mechanically ventilated, on assist control rate 28, volume 400 FiO2 40% PEEP of 5. ABG showed a pO2 of 82 pCO2 34 pH of 7.29, patient was placed on bicarb drip earlier by nephrology. She is maximized on norepinephrine at 0.5 mcg/kg/m she is also on amiodarone 1 mg/m vasopressin at 0.[address] of the abdomen yesterday showed bowel perforation and pneumoperitoneum of blood is positive for enterococcus. Patient is atrial fibrillation with RVR. Family today is at bedside, and had a long discussion with the and the daughter, explained to them that her condition is basically extremely poor, and the patient will not make it considering her new finding of abdominal sepsis. They were made aware yesterday by the surgeon about her bowel perforation, the surgeon and the family felt that she is extremely high surgical risk, hence no surgery was done for her abdominal sepsis and bowel perforation. In the meantime the patient is maximized on pressors she is also on antibiotics, her WBC scan is 17.8 hemoglobin is 8.2 bicarb is 16 BUN is 76 creatinine 1.73. The primary care physician Dr. Hartman talk to the about her condition and he was able to change her CODE STATUS to DO NOT RESUSCITATE CODE STATUS. However the family is still not agreeable to consider comfort care measures. I even suggested stopping the presses and down the line consider comfort care but not yet at this point. Family does not seem to be very agreeable. Patient is on good course of antibiotics, which is also on antifungal therapy. Also on bronchodilators. Being followed by infectious disease and now she is on daptomycin, patient is also on Eraxis, and zerbaxa Patient was reevaluated today on 08/22/22, admitted ICU intubated mechanically ventilated. She is maximized on pressors, she is on assist control rate of 28th of volume 400 FiO2 40% PEEP of 5 ABG showed a pO2 of 65 pCO2 36 pH of 7.31. Patient is on 0.5 g ventricular per minute of norepinephrine 0.04 units per minute of vasopressin remains on bicarb drip, remains on amiodarone 1 mg/m and her normal saline at 100 mL per hour. WBC count is 16.5 hemoglobin is 7.8. Sick metabolic profile is normal renal profile is abnormal with BUN of 83 creatinine 1.79 and remains on antibiotics as per infectious disease on the case. Chest x-ray showed bibasilar atelectasis and consolidations. And small tiny right-sided pleural effusion endotracheal tube and orogastric tube are in proper positions Reevaluated today on patient remains in the ICU, she is intubated and mechanically ventilated. Patient is on assist control rate of 28, tidal volume 400 FiO2 50% PEEP of 5 ABG showed a pO2 of 90 pCO2 39 pH of 7.31. Patient is still maximized on pressors including norepinephrine at 0.5 mcg/kg/m vasopressin at 0.04 units per minute still receiving bicarb 3 A in 1 L of D5W at 75 mL per hour remains on amiodarone at 1 mg/m IV fluid at KVO heart rate is 110 to 130. Chest x-ray showing bibasilar infiltrates/atelectasis and small pleural effusions, not much of a change manager the last couple of days. The peak and today's 15.3 hemoglobin is 7.5. Renal profile is abnormal with BUN of 83 creati nine 2.13. Ammonia level is 210. Not much of a change overall in the last 24 hours, patient remains very critically ill. And I believe her condition is mostly futile. is reluctant to consider comfort care measures on this patient. reevaluated today on 08/24/2022, patient remains in the ICU, remains intubated and mechanically ventilated, she is on assist control rate of 28 tidal volume 400 FiO2 50% PEEP of 5. ABG showed a pO2 of 84 pCO2 of 39 pH of 7.33. Patient remains maximized on pressors, she is on norepinephrine at 0.5 mcg/kg/m vasopressin 0.04 units per minute she is also on amiodarone 1 mg/m, still on sodium bicarb 3 A in 1 L of D5W running at 70 mL per hour. Patient is being considered now for tracheostomy and PEG tube placement, although I strongly believe that the patient's condition is futile. Her blood cultures are now positive for Enterococcus faecium, sputum cultures are positive for MRSA. I'm not surprised that her rate blood cultures are positive considering the patient has significantly profound abdominal sepsis and bowel perforation that being treated medically and not surgically.even if we change the lines on this patient, that would get reinfected since the patient has ongoing abdominal sepsis and possibly abdominal abscesses,hence I'm extremely reluctant to change her lines at this point when there is ongoing abdominal sepsis.patient is rece iving antibiotics, I have strongly recommended comfort care measures on this patient, but the seems to be reluctant to consider such recommendation, and he seems to be agreeable to proceed with tracheostomy and PEG tube placement which is again the extreme at this pointnonetheless the patient has been intubated now for almost 2 weeks. Reevaluated today on 08/25/2022, patient remains in the ICU, intubated and mechanically ventilated, he is on assist control rate of 28th of volume 400 FiO2 50% PEEP of 5 ABG showed a pO2 of 91 pCO2 42 pH of 7.28 patient is scheduled to undergo tracheostomy and PEG tube placement today, hence no changes were made in her present ventilator settings. Patient is still maximized on pressors including norepinephrine at 0.5 mcg/kg/m vasopressin at 0.04 units per minute she is also on amiodarone 1 mg/m TPN at 50 mL/h. Sodium bicarb 3 A in D5W at 75 mL per hour she is also on Versed 6 mg per hour. Chest x-ray shows worsening in her bilateral pneumonia. WBC count is getting worse today 21.7 hemoglobin is 7.3, basic metabolic profile showed slightly low potassium of 3.0, BUN is 79 creatinine 1.87, basically unchanged in the last couple of days. Serum albumin is 1.7. Ionized calcium is 5.2, patient received calcium earlier today Reevaluated today on 08/26/2022, patient remains in the ICU, intubated mechanically ventilated, she is now on assist control rate of 30 tidal volume 400 FiO2 45% PEEP is at 10. Try to go down on the feet, however the patient desaturated and I kept her on a PEEP of 10. ABG today showed a pO2 of 84 pCO2 47 pH of 7.26. Patient remains on multiple drips, she had uneventful tracheostomy placed on 08/25 yesterday. However she did not have a PEG tube, continues to have a nasogastric tube in place. She is now on norepinephrine at 0.47 vasopressin at 0.04 amiodarone at 1 mg/m, bicarb at 75 mL/h Versed at 7 mg per hour today I added Solu-Medrol 40 mg IV push every 8 hours. Mostly because on physical examination she has significant rhonchi and wheezes chest x-ray continues to show bilateral infiltrates. Not much of a change. Overall clinical status about the same and unchanged. Patient remains quite swollen and edematous. Remains on Lasix 80 mg IV push daily. WBC count is rising 21.3. Hemoglobin is 7.2. Basic metabolic profile is abnormal with low potassium and low sodium low bicarb elevated BUN of 76 creatinine 1.74. Ionized calcium is 5.6 ammonia level remains elevated at 171. Reevaluated today on 08/27/2022, patient remains in the ICU, intubated and mechanically ventilated sedated, patient is on multiple drips including norepinephrine at 0.3 mcg/kg/m vasopressin at 0.04, amiodarone, bicarbonate 75 ML per hour, and she is also on Versed 7 mg per hour. Patient is on assist control rate of 30 tidal volume 400 FiO2 45% PEEP of 10 ABG showed a pO2 of 100 pCO2 48 pH of 7.30. Patient has been receiving Versed, today I recommended that we stop the Versed and assess mental status if possible. Patient continues to have multiple medical issues, and I believe the patient is worsening clinically. Now she is developing ischemic changes in her fingers and in her toes, becoming more cyanotic. And that is mostly because of significant amount of pressors and the patient has been receiving. Today I recommended that we cut down on the presses since her blood pressure seems to be better and I recommended that we stop her Versed to assess mental status if possible. Hospice son is at bedside, updated the son in her condition, family is very well aware that her condition is extremely poor and futile, nonetheless the is not ready to let go. I have strongly recommended comfort care measures, remains reluctant to do so. WBC count today is 21.3 hemoglobin 7.2. Basic metabolic profile is normal however her BUN is 75 creatinine 1.8 2, chest x-ray continues to show bilateral air space disease and possibly bilateral pleural effusions tracheostomy seems to be in proper position. 09/09/2022, neurologically unchanged, unresponsive, off sedation. Remains still on a mechanical ventilator. This is controlled rate of 30 with a tidal volume of 400 and FiO2 of 40% with a PEEP of 5. Blood gas show a pH of 7.39 with a pCO2 of 42 and pO2 of 132. The patient is doing some respiratory efforts were she breathes above the vent. No cough. No gag. No response to deep painful stimulation. No seizure activity has been noted. Hemodynamically, she was taken of the vasopressin. Norepinephrine dose was gradually brought up yesterday currently running at 0.28 mcg/kg/m. Her blood pressure is stable and we will attempt to wean it down again. Afebrile. Urine output is in order of 40-60 mL an hour and the overall fluid balance has been +363 mL over the past 24 hours. She remains on Lasix drip at 10 mg an hour. Remains on the same antibiotic coverage. There is a concern of an underlying thrombocytopenia. Hematology oncology consulted. Further workup is in order then we believe that this is a drug induced was at the I. No evidence of bleeding. Platelet count of 12. Hemoglobin 7.3 with a WBC count of 8.9. No signs of DIC at this point in time. She is tolerating his enteral feeding which is running at the rate of 30 mL an hour of vital AF. TPN is still running at a rate of 65 mL an hour. Fecal management system was in place. Urine output is adequate. Stool output is in order of 10-15 mL an hour. Cardiac rhythm is A. fib. The patient remains on amiodarone. The patient is not taking any form of anticoagulation. The patient on mitogen 10 mg by mouth 3 times a day. Blood sugar control is with Levemir 15 units at bedtime n addition to a sliding scale coverage. Antibiotic coverage is the same.Remain on the same antibiotic coverage which includes Zyvox, Zerbaxa and Eraxis. On today's evaluation of 09/10/2022, no neurologic progress and the patient remains unresponsive. Furthermore, there has been further decompensation her condition. Since yesterday, the patient's pressor requirements have changed and the patient is requiring higher doses of pressors. There is ongoing drop in her platelet count which is down to 6 and this is multifactorial as the patient takes several medications with contributions to thrombocytopenia. Nevertheless, we have not encountered any bleeding. The patient remains on a mechanical ventilator. We noted some feeding material around the tracheostomy stoma and obviously the enteral feeding was discontinued immediately. The stomach is also suctioned out. She remains on TPN for nutritional support. The patient is on a mechanical ventilator. She is on assist control mode at the rate of 24, tidal volume of 400, FiO2 is at 40% with a PEEP of 5. Blood gases are adequate in the pH of 7.36 and a pCO2 of 44 and pO2 of 126. Chest x-ray shows lower lobe at the pulmonary infiltrates. These are chronic. No interval change. Possibly some small pleural effusions are also present. Nevertheless, the findings of essentially stable. The patient was taken off the Lasix drip yesterday. The patient is currently receiving Lasix 40 mg IV every 12 hours. She continues to have some anasarca and diffuse edema in all 4 extremities. On today's blood work, her potassium came up 6.3 and she was treated accordingly. She was given bicarb and lokelma and calcium. No significant arrhythmias. BUN is up to 112 with a creatinine of 1.1. Sodium is at 137. Repeat blood cultures were sent. The WBC is at panel with a hemoglobin of 7.0. In terms of temperature, the patient remains afebrile. She remains in atrial fibrillation. She remains on amiodarone. No anticoagulants for now. She remains on mitogen. Antibiotics have been adjusted and the patient was taken off the Zyvox patient remains on Eraxis and zerbaxa. Also, the Dilantin dose has been modified Reevaluated today on 09/11/2022, patient remains in the ICU, intubated and mechanically ventilated, and overall basically about the same. However she is unable to maintain adequate blood pressure in spite of maximal dose of norepine phrine she is on 0.5 mcg/kg/m of norepinephrine total of 62.5 mcg/m, she is on mechanical ventilation with assist control rate of 24 tidal volume 400 FiO2 40% PEEP of 5 ABG showed a pO2 of 108 pCO2 42 pH of 7.12 patient had many positive blood cultures and positive sputum cultures for MRSA with blood cultures from 08/23 showing Enterococcus faecium and VRE. A shunt remains on antibiotics in the form of Eraxis and the Wilfred is also on TPN. Still receiving Lasix 40 mg IV push every 12 hours. She is also on TPN at 65 mL/h. Family is at bedside, not quite ready to go to comfort care measures, but nonetheless the family is quite convinced that her condition is irreversible, and basically futile. Patient remains to be followed by many consultants including nephrology and infectious disease on the case. No chest x-ray was done today. Patient is unresponsive to any stimuli. Nephrology is not planning any hemodialysis. Objective - Vital Signs Vital signs: Vital Signs Temp 98.2 F 09/11/22 08:00 Pulse 56 L 09/11/22 11:41 Resp 30 H 09/11/22 09:00 BP 93/37 09/11/22 03:15 Pulse Ox 95 09/11/22 09:00 FiO2 40 09/11/22 11:36 Intake & Output 09/10/22 09/11/22 09/11/22 18:59 06:59 18:59 Intake Total 6025.704 5155.768 182 Output Total 130 90 0 Balance 611.906 2890.768 182 Weight 124.9 kg Intake: IV 498 946 132 0.9% @ KVO 150 60 20 Anidulafungin 100 mg In 200 Sodium Chloride 0.9% 100 ml @ 84 mls/hr IVPB Q24H [facility] Rx#:[id number] Ceftolozane/Tazobactam 1. 100 100 100 5 gm In Sodium Chloride 0 .9% 100 ml @ 100 mls/hr IV Q8HR [facility] Rx#:[id number] Lacosamide IV 150 mg In 50 50 Sodium Chloride 0.9% 50 ml @ 100 mls/hr IVPB BID [facility] Rx#:[id number] Mvi, Adult No.4 with Vit 65 K 10 ml Trace (Conc-1Ml/ Dose) 1 ml Potassium Phosphate 9 mmol Sodium Acetate 30 meq Potassium Chloride 80 meq Magnesium Sulfate gm 1 gm Sodium Chloride 4Meq/ml Vial 100 meq Calcium Gluconate 3 gm In Amino Acids 5 %/ Dextrose 20 % 1,000 ml @ 65 mls/hr IV .BY DURATION [facility] Rx#:[id number] Normal Saline: Pressure 33 36 12 Bag PRBCs 350 Phenytoin Sodium Inj 300 50 mg In Sodium Chloride 0.9 % 50 ml @ 80 mls/hr IVPB Q12H [facility] Rx#:[id number] levETIRAcetam IV 1,000 mg 100 100 In Saline 1 100ml.bag @ 400 mls/hr IVPB Q12HR [facility] Rx#:[id number] Intake, IV Titration 241.667 362.768 50 Amount Ceftolozane/Tazobactam 1. 110 5 gm In Sodium Chloride 0 .9% 100 ml @ 100 mls/hr IV Q8HR [facility] Rx#:[id number] Norepinephrine 32 mg In 131.667 362.768 Sodium Chloride 0.9% 218 ml @ 0.5 MCG/KG/MIN 25. 547 mls/hr IV .Q9H48M [facility] Rx#:[id number] Phenytoin Sodium Inj 300 50 mg In Sodium Chloride 0.9 % 50 ml @ 80 mls/hr IVPB Q12H [facility] Rx#:[id number] Blood Product 344 310 Platelet Pheresis Pas 344 Psoralen Unit [id number] Rc As-1 Unit 310 [id number] Other 100 Output: Urine 130 90 0 Other: Voiding Method Indwelling Catheter Indwelling Catheter Indwelling Catheter ABP, PAP, CO, CI - Last Documented Arterial Blood Pressure 74/21 - Exam GENERAL EXAM: Intubated, sedated, 87-year-old morbidly obese female, unresponsive to any stimuli, intubated and mechanically ventilated. No gag reflex. HEAD: Normocephalic. Atraumatic. Tracheostomy is intact. EYES: Sluggish reaction of pupils, equal size. NOSE: Nasogastric tube secured in place. Clear with pink turbinates. NECK: No masses, no JVD. CHEST: No chest wall deformity. LUNGS: Crackles at the bases. CVS: S1 and S2 normal with no audible murmur, irregular rhythm. ABDOMEN: Obese soft nontender, diminished bowel sounds, significant abdominal wall edema is noted. SKIN: No rashes CENTRAL NERVOUS SYSTEM: He remains unresponsive and comatose. She is off sedation. EXTREMITIES: 3+ peripheral edema. Changes of chronic venous stasis. Significant cyanosis noted in her toes bilaterally and in the tips of fingers bilaterally - Labs CBC & Chem 7: 09/11/22 04:00 09/11/22 04:00 Labs: Abnormal Lab Results - Last 24 Hours (Table) 09/08/22 09/10/22 09/10/22 Range/Units 15:00 11:30 16:40 WBC (3.8-10.6) k/uL RBC (3.80-5.40) m/uL Hgb (11.4-16.0) gm/dL Hct (34.0-46.0) % MCHC (31.0-37.0) g/dL RDW (11.5-15.5) % Plt Count (150-450) k/uL Neutrophils # (1.3-7.7) k/uL Lymphocytes # (1.0-4.8) k/uL ABG pH (7.35-7.45) ABG HCO3 (21-25) mmol/L ABG Total CO2 (19-24) mmol/L Potassium 6.2 H* 6.0 H (3.5-5.1) mmol/L Carbon Dioxide (22-30) mmol/L BUN 115 H* 113 H* (7-17) mg/dL Creatinine 1.13 H (0.52-1.04) mg/dL Glucose 200 H 193 H (74-99) mg/dL POC Glucose (mg/dL) (70-110) mg/dL Calcium 8.2 L 8.2 L (8.4-10.2) mg/dL Phosphorus (2.5-4.5) mg/dL Magnesium (1.6-2.3) mg/dL Crossmatch See Detail 09/10/22 09/10/22 09/10/22 Range/Units 16:50 23:00 23:23 WBC (3.8-10.6) k/uL RBC 2.34 L (3.80-5.40) m/uL Hgb 6.3 L* (11.4-16.0) gm/dL Hct 21.1 L (34.0-46.0) % MCHC 29.9 L (31.0-37.0) g/dL RDW 22.3 H (11.5-15.5) % Plt Count 49 L D (150-450) k/uL Neutrophils # 8.5 H (1.3-7.7) k/uL Lymphocytes # 0.7 L (1.0-4.8) k/uL ABG pH (7.35-7.45) ABG HCO3 (21-25) mmol/L ABG Total CO2 (19-24) mmol/L Potassium 6.1 H* (3.5-5.1) mmol/L Carbon Dioxide (22-30) mmol/L BUN (7-17) mg/dL Creatinine (0.52-1.04) mg/dL Glucose (74-99) mg/dL POC Glucose (mg/dL) 210 H (70-110) mg/dL Calcium (8.4-10.2) mg/dL Phosphorus (2.5-4.5) mg/dL Magnesium (1.6-2.3) mg/dL Crossmatch 09/11/22 09/11/22 09/11/22 Range/Units 02:06 03:58 04:00 WBC (3.8-10.6) k/uL RBC (3.80-5.40) m/uL Hgb (11.4-16.0) gm/dL Hct (34.0-46.0) % MCHC (31.0-37.0) g/dL RDW (11.5-15.5) % Plt Count (150-450) k/uL Neutrophils # (1.3-7.7) k/uL Lymphocytes # (1.0-4.8) k/uL ABG pH (7.35-7.45) ABG HCO3 (21-25) mmol/L ABG Total CO2 (19-24) mmol/L Potassium 6.5 H* (3.5-5.1) mmol/L Carbon Dioxide 19 L (22-30) mmol/L BUN 118 H* (7-17) mg/dL Creatinine 1.14 H (0.52-1.04) mg/dL Glucose 69 L (74-99) mg/dL POC Glucose (mg/dL) 60 L 69 L (70-110) mg/dL Calcium 8.1 L (8.4-10.2) mg/dL Phosphorus 4.9 H (2.5-4.5) mg/dL Magnesium 2.6 H (1.6-2.3) mg/dL Crossmatch 09/11/22 09/11/22 09/11/22 Range/Units 04:00 05:40 05:47 WBC 11.5 H (3.8-10.6) k/uL RBC 2.78 L (3.80-5.40) m/uL Hgb 7.8 L D (11.4-16.0) gm/dL Hct 25.3 L (34.0-46.0) % MCHC 30.9 L (31.0-37.0) g/dL RDW 20.6 H (11.5-15.5) % Plt Count 46 L (150-450) k/uL Neutrophils # 9.8 H (1.3-7.7) k/uL Lymphocytes # 0.9 L (1.0-4.8) k/uL ABG pH 7.12 L* (7.35-7.45) ABG HCO3 14 L (21-25) mmol/L ABG Total CO2 15 L (19-24) mmol/L Potassium (3.5-5.1) mmol/L Carbon Dioxide (22-30) mmol/L BUN (7-17) mg/dL Creatinine (0.52-1.04) mg/dL Glucose (74-99) mg/dL POC Glucose (mg/dL) 66 L (70-110) mg/dL Calcium (8.4-10.2) mg/dL Phosphorus (2.5-4.5) mg/dL Magnesium (1.6-2.3) mg/dL Crossmatch 09/11/22 09/11/22 Range/Units 08:08 10:01 WBC (3.8-10.6) k/uL RBC (3.80-5.40) m/uL Hgb (11.4-16.0) gm/dL Hct (34.0-46.0) % MCHC (31.0-37.0) g/dL RDW (11.5-15.5) % Plt Count (150-450) k/uL Neutrophils # (1.3-7.7) k/uL Lymphocytes # (1.0-4.8) k/uL ABG pH (7.35-7.45) ABG HCO3 (21-25) mmol/L ABG Total CO2 (19-24) mmol/L Potassium (3.5-5.1) mmol/L Carbon Dioxide (22-30) mmol/L BUN (7-17) mg/dL Creatinine (0.52-1.04) mg/dL Glucose (74-99) mg/dL POC Glucose (mg/dL) 150 H 44 L (70-110) mg/dL Calcium (8.4-10.2) mg/dL Phosphorus (2.5-4.5) mg/dL Magnesium (1.6-2.3) mg/dL Crossmatch Microbiology - Last 24 Hours (Table) 09/09/22 10:50 Blood Culture - Preliminary Blood No Growth after 24 hours Assessment and Plan Assessment: Impression: Acute on chronic hypoxic respiratory failure Acute on chronic diastolic congestive heart failure Abdominal sepsis and septic shock Anion gap metabolic acidosis, improving but not resolved. Multifactorial. Urinary tract infection secondary to Enterococcus faecalis and pseudomonas aeruginosa bacteremia secondary to enterococcus faecium Systemic candidiasis with positive cultures for Ange. Atrial fibrillation with RVR requiring amiodarone drip Acute on chronic kidney disease Recent history of COVID-19 infection History of valvular heart disease with aortic stenosis, patient is an excellent set up for endocarditis Acute on chronic anemia History of underlying COPD History of diastolic congestive heart failure Recommendation: C continue ventilatory support. Continue antibiotics. Patient is on zerbaxa and on Eraxis. Zyvox has been discontinued ontinue hemodynamic support however cut down as much as possible on norepinephrine , would not recommend increasing the dose beyond 0.5 mcg/kg/m Continue present supportive care measures Continue GI and DVT prophylaxis Continue to avoid sedation Continue wound care especially in coccyx area and feet. Patient is critically ill Condition is futile, family is very aware, is at bedside. We will continue to follow Critical care time is over 30 minutes Time with Patient: Greater than 30
--- NOTE | 2022-09-11 14:11 | P.PN ---
Subjective Progress Note Date: 09/11/22 CHIEF COMPLAINT: Abdominal pain HISTORY OF PRESENT ILLNESS: Patient remains in the ICU and on mechanical ventilation. Patient had tracheostomy placed on 08/25/2022. Patient was unable to have PEG tube placed because light reflex was not visualized during EGD. Patient remains on TPN for nutrition support. Remains on vasopressors. Afebrile. Elevated K and worsening renal function. Patient hypotensive. PHYSICAL EXAM: VITAL SIGNS: Reviewed GENERAL: On mechanical ventilation. NECK: Tracheostomy site clean dry and intact ASSESSMENT: 1. Acute on chronic hypoxic respiratory failure status post tracheostomy placement 2. Severe protein calorie malnutrition PLAN: -TPN for nutrition support -Continue supportive care -Continue ICU management Physician [employer] Installer note has been reviewed by physician. Signing provider agrees with the documented findings, assessment, and plan of care. Objective - Vital Signs Vital signs: Vital Signs Temp 98.2 F 09/11/22 08:00 Pulse 56 L 09/11/22 11:41 Resp 30 H 09/11/22 09:00 BP 93/37 09/11/22 03:15 Pulse Ox 95 09/11/22 09:00 FiO2 40 09/11/22 11:36 Intake & Output 09/10/22 09/11/22 09/11/22 18:59 06:59 18:59 Intake Total 7166.252 9760.768 182 Output Total 130 90 0 Balance 359.720 0406.768 182 Weight 124.9 kg Intake: IV 498 946 132 0.9% @ KVO 150 60 20 Anidulafungin 100 mg In 200 Sodium Chloride 0.9% 100 ml @ 84 mls/hr IVPB Q24H [facility] Rx#:[id number] Ceftolozane/Tazobactam 1. 100 100 100 5 gm In Sodium Chloride 0 .9% 100 ml @ 100 mls/hr IV Q8HR [facility] Rx#:[id number] Lacosamide IV 150 mg In 50 50 Sodium Chloride 0.9% 50 ml @ 100 mls/hr IVPB BID [facility] Rx#:[id number] Mvi, Adult No.4 with Vit 65 K 10 ml Trace (Conc-1Ml/ Dose) 1 ml Potassium Phosphate 9 mmol Sodium Acetate 30 meq Potassium Chloride 80 meq Magnesium Sulfate gm 1 gm Sodium Chloride 4Meq/ml Vial 100 meq Calcium Gluconate 3 gm In Amino Acids 5 %/ Dextrose 20 % 1,000 ml @ 65 mls/hr IV .BY DURATION [facility] Rx#:[id number] Normal Saline: Pressure 33 36 12 Bag PRBCs 350 Phenytoin Sodium Inj 300 50 mg In Sodium Chloride 0.9 % 50 ml @ 80 mls/hr IVPB Q12H [facility] Rx#:[id number] levETIRAcetam IV 1,000 mg 100 100 In Saline 1 100ml.bag @ 400 mls/hr IVPB Q12HR [facility] Rx#:[id number] Intake, IV Titration 241.667 362.768 50 Amount Ceftolozane/Tazobactam 1. 110 5 gm In Sodium Chloride 0 .9% 100 ml @ 100 mls/hr IV Q8HR [facility] Rx#:[id number] Norepinephrine 32 mg In 131.667 362.768 Sodium Chloride 0.9% 218 ml @ 0.5 MCG/KG/MIN 25. 547 mls/hr IV .Q9H48M [facility] Rx#:[id number] Phenytoin Sodium Inj 300 50 mg In Sodium Chloride 0.9 % 50 ml @ 80 mls/hr IVPB Q12H [facility] Rx#:[id number] Blood Product 344 310 Platelet Pheresis Pas 344 Psoralen Unit [id number] Rc As-1 Unit 310 [id number] Other 100 Output: Urine 130 90 0 Other: Voiding Method Indwelling Catheter Indwelling Catheter Indwelling Catheter ABP, PAP, CO, CI - Last Documented Arterial Blood Pressure 74/21 - Labs CBC & Chem 7: 09/11/22 04:00 09/11/22 04:00 Labs: Abnormal Lab Results - Last 24 Hours (Table) 09/08/22 09/10/22 09/10/22 Range/Units 15:00 16:40 16:50 WBC (3.8-10.6) k/uL RBC (3.80-5.40) m/uL Hgb (11.4-16.0) gm/dL Hct (34.0-46.0) % MCHC (31.0-37.0) g/dL RDW (11.5-15.5) % Plt Count (150-450) k/uL Neutrophils # (1.3-7.7) k/uL Lymphocytes # (1.0-4.8) k/uL ABG pH (7.35-7.45) ABG HCO3 (21-25) mmol/L ABG Total CO2 (19-24) mmol/L Potassium 6.0 H (3.5-5.1) mmol/L Carbon Dioxide (22-30) mmol/L BUN 113 H* (7-17) mg/dL Creatinine 1.13 H (0.52-1.04) mg/dL Glucose 193 H (74-99) mg/dL POC Glucose (mg/dL) 210 H (70-110) mg/dL Calcium 8.2 L (8.4-10.2) mg/dL Phosphorus (2.5-4.5) mg/dL Magnesium (1.6-2.3) mg/dL Crossmatch See Detail 09/10/22 09/10/22 09/11/22 Range/Units 23:00 23:23 02:06 WBC (3.8-10.6) k/uL RBC 2.34 L (3.80-5.40) m/uL Hgb 6.3 L* (11.4-16.0) gm/dL Hct 21.1 L (34.0-46.0) % MCHC 29.9 L (31.0-37.0) g/dL RDW 22.3 H (11.5-15.5) % Plt Count 49 L D (150-450) k/uL Neutrophils # 8.5 H (1.3-7.7) k/uL Lymphocytes # 0.7 L (1.0-4.8) k/uL ABG pH (7.35-7.45) ABG HCO3 (21-25) mmol/L ABG Total CO2 (19-24) mmol/L Potassium 6.1 H* (3.5-5.1) mmol/L Carbon Dioxide (22-30) mmol/L BUN (7-17) mg/dL Creatinine (0.52-1.04) mg/dL Glucose (74-99) mg/dL POC Glucose (mg/dL) 60 L (70-110) mg/dL Calcium (8.4-10.2) mg/dL Phosphorus (2.5-4.5) mg/dL Magnesium (1.6-2.3) mg/dL Crossmatch 09/11/22 09/11/22 09/11/22 Range/Units 03:58 04:00 04:00 WBC 11.5 H (3.8-10.6) k/uL RBC 2.78 L (3.80-5.40) m/uL Hgb 7.8 L D (11.4-16.0) gm/dL Hct 25.3 L (34.0-46.0) % MCHC 30.9 L (31.0-37.0) g/dL RDW 20.6 H (11.5-15.5) % Plt Count 46 L (150-450) k/uL Neutrophils # 9.8 H (1.3-7.7) k/uL Lymphocytes # 0.9 L (1.0-4.8) k/uL ABG pH (7.35-7.45) ABG HCO3 (21-25) mmol/L ABG Total CO2 (19-24) mmol/L Potassium 6.5 H* (3.5-5.1) mmol/L Carbon Dioxide 19 L (22-30) mmol/L BUN 118 H* (7-17) mg/dL Creatinine 1.14 H (0.52-1.04) mg/dL Glucose 69 L (74-99) mg/dL POC Glucose (mg/dL) 69 L (70-110) mg/dL Calcium 8.1 L (8.4-10.2) mg/dL Phosphorus 4.9 H (2.5-4.5) mg/dL Magnesium 2.6 H (1.6-2.3) mg/dL Crossmatch 09/11/22 09/11/22 09/11/22 Range/Units 05:40 05:47 08:08 WBC (3.8-10.6) k/uL RBC (3.80-5.40) m/uL Hgb (11.4-16.0) gm/dL Hct (34.0-46.0) % MCHC (31.0-37.0) g/dL RDW (11.5-15.5) % Plt Count (150-450) k/uL Neutrophils # (1.3-7.7) k/uL Lymphocytes # (1.0-4.8) k/uL ABG pH 7.12 L* (7.35-7.45) ABG HCO3 14 L (21-25) mmol/L ABG Total CO2 15 L (19-24) mmol/L Potassium (3.5-5.1) mmol/L Carbon Dioxide (22-30) mmol/L BUN (7-17) mg/dL Creatinine (0.52-1.04) mg/dL Glucose (74-99) mg/dL POC Glucose (mg/dL) 66 L 150 H (70-110) mg/dL Calcium (8.4-10.2) mg/dL Phosphorus (2.5-4.5) mg/dL Magnesium (1.6-2.3) mg/dL Crossmatch 09/11/22 Range/Units 10:01 WBC (3.8-10.6) k/uL RBC (3.80-5.40) m/uL Hgb (11.4-16.0) gm/dL Hct (34.0-46.0) % MCHC (31.0-37.0) g/dL RDW (11.5-15.5) % Plt Count (150-450) k/uL Neutrophils # (1.3-7.7) k/uL Lymphocytes # (1.0-4.8) k/uL ABG pH (7.35-7.45) ABG HCO3 (21-25) mmol/L ABG Total CO2 (19-24) mmol/L Potassium (3.5-5.1) mmol/L Carbon Dioxide (22-30) mmol/L BUN (7-17) mg/dL Creatinine (0.52-1.04) mg/dL Glucose (74-99) mg/dL POC Glucose (mg/dL) 44 L (70-110) mg/dL Calcium (8.4-10.2) mg/dL Phosphorus (2.5-4.5) mg/dL Magnesium (1.6-2.3) mg/dL Crossmatch Microbiology - Last 24 Hours (Table) 09/09/22 10:50 Blood Culture - Preliminary Blood No Growth after 48 hours
--- NOTE | 2022-09-11 17:32 | P.DS ---
Providers Date of admission: 08/08/22 19:25 Expected date of discharge: 09/11/22 Attending physician: Phan Hartman Consults: 08/09/22 08:56 Consult Physician Routine Consulting Provider: Geo Peres Consult Reason/Comments: hypoxic resp failure Do you want consulting provider notified?: Yes 08/09/22 13:52 Consult Physician Routine Consulting Provider: Neelam Underwood Consult Reason/Comments: acute renal failure Do you want consulting provider notified?: Yes 08/09/22 17:13 Consult Physician Routine Consulting Provider: Janina Delgado Consult Reason/Comments: afib, CHF Do you want consulting provider notified?: Yes 08/10/22 10:14 Consult Physician Urgent Consulting Provider: Santana Laura Consult Reason/Comments: Sepsis Do you want consulting provider notified?: Yes 08/19/22 16:46 Consult Physician Routine Consulting Provider: Laurie Martinez Consult Reason/Comments: Off sedation >48hours not waking up Do you want consulting provider notified?: Yes 08/24/22 09:50 Consult Physician Routine Consulting Provider: Vinny Head Consult Reason/Comments: Tracheostomy Do you want consulting provider notified?: Yes 09/08/22 10:40 Consult Physician Routine Consulting Provider: Philippe Pagan Consult Reason/Comments: low platelets Do you want consulting provider notified?: Already Contacted Primary care physician: Phan Hartman - Discharge Diagnosis(es) (1) Encephalopathy acute Status: Acute (2) Sepsis Status: Acute (3) Acute on chronic diastolic (congestive) heart failure Status: Acute (4) Hypokalemia Status: Acute (5) Hypocalcemia Status: Acute (6) Acute exacerbation of chronic obstructive pulmonary disease Status: Acute (7) Pneumonia Status: Acute (8) Acute on chronic renal failure Status: Acute (9) Altered mental status Status: Acute (10) CAD (coronary atherosclerotic disease) Status: Acute (11) Hypertension Status: Acute (12) Hypoxia Status: Acute (13) Leukocytosis Status: Acute (14) exterminator prescription opiate use Status: Acute (15) Type 2 diabetes mellitus without complications Status: Acute (16) UTI (urinary tract infection) Status: Acute (17) Urinary retention Status: Acute (18) Status post tracheostomy Status: Acute (19) Septic shock Status: Acute (20) Severe sepsis with acute organ dysfunction due to Gram negative bacteria Status: Acute Hospital Course: his is a 87-year-old morbidly, obese, female, well known to me. She has multiple medical problems including a chronic renal failure, chronic systolic congestive heart failure. I last seen her on August 05, 2022 at [facility] on the [place]. She was doing fairly well at that time. She was there for rehabilitation. This [facility] in the past Several months.Her only complaint with some constipation. She not stool since August 03. She has been hospitalized in the past year nine times including this current visit.She was [place] [facility] [place]. On August 08, 2022 she presented the emergency room via EMS. Her indicates that she went to the bathroom, and, he had found her slumped over in her wheelchair, blue in the face and not breathing well. He had tried to feed her and given her some insulin. SheHer only complaint with some constipation. After patients admission, just after midnight and 18 was called on her and she is going to be attending hypotensive. Choose placement of any mask and BiPAP. Eventually she required intubation. And her about August 11. She's currently in abated and sedated.How to raise tachycardic blood pressure is stable with pressers.She is on aAnidulafungin For positive sputum and blood cultures of yeast. She remains on sodium chloride and potassium chloride IV and is now on tube feeds at 10 ml/hr. Labs for today show a leukocytosis at 16.2 with a left shift 13.9 neutrophils hemoglobin is 7.7. ABGs from this morning show page 7.32 PCO2 of 39 PO and HCO3 a 20.Chemistry is show the normal electrolytes decrease carbon dioxide and 19 GFR is 26. Calcium 6.4. She is receiving a amino acids and D5 through the IV. She has Dulcolax per rectum ordered. She has sheathing calcium gluconate. She remains Zerbaxa for antibiotic coverage.She is receiving Lovenox for anticoagulation and DVT prophylaxis, Levemir insulin along with scale, Levophed for blood pressure control, potassium chloride for hypokalemia. She's being followed by critical care, Nephrology,surgery, Infectious disease and cardiology August 16 2022: She remains intubated in the intensive care unit. Sedation has been discontinued. She remains on pressors of Levophed. The dose of this is been decreased. She did not tolerate tube feeds. Heart rate remains elevated. She is in atrial fibrillation. She is on potassium replacement protocol. Calcium gluconate, amiodarone drip, need to left fungated antifungal medication, ceftolazone/tazobactam for antibiotic coverage for suspected UTI and sepsis, Reglan for her constipation, insulin for her diabetes, Elequis for anticoagulation. Laboratory studies show a leukocytosis at 20.2 with hemoglobin of 70 absolute neutrophils 17.5. ABGs show pH 7.36 PCO2 39 PO2 107. Chemistries slightly altered, GFR is improved, CRP and pro calcitonin elevated. Repeat blood cultures have been negative. She remains on MiraLAX, lactulose and Reglan per critical care for the constipation issues. Calcitonin is improved. Glucose remains well controlled. Critical care planning gradually reducing her pressors as needed. Etiologies following for her A. fib with RVR. He continues to have volvulus. 08/17/2022: Patient remains intubated in the intensive care unit. He remains on norepinephrine and vasopressin for hypotension. Sedation used propofol but will be discontinued soon for a trial ventilator on standby. I discussed her case personally with the animal eviscerator. She remains on Levemir insulin 10 units and NovoLog scale every 6 hours. Staff reports increased sugars recently. She continues on naproxen than for anticoagulation, amiodarone for atrial fibrillation with RVR, budesonide for her COPD, Eraxis for candidal infection and Zybrexa for anti-biotic coverage for UTI. Her main some potassium pr otocol. She is on lactulose and Reglan to help with her obstipation. She is receiving TPN for nutrition. I remains tachycardic, rest her rate somewhat elevated. Blood pressure remained stable. WB Nayla is slightly improved from yesterday, hemoglobin is slightly down from yesterday. Blood gases chemistries reviewed. She remains hypokalemic. Kidney function continues to improve very slowly. Glucose was 260 this morning. Calcium and protein albumin remained low. Her 13 blood cultures remain negative. Her condition is critical care cardiology reviewed. Chest x-ray shows no nipple can't change. 08/18 2022: Patient remains intubated in the intensive care unit. Sedation has been off, but there's been no significant wakefulness noted. Vital signs show she remains tachycardic in the 130s. Respiratory rate is 30 and mechanically ventilated, blood pressure remains low normal with pressers of vasopressin and levo fed. FiO2 is 40 Labs show to be discussed 16 5 hemoglobin 7 hematocrit 23.9 platelets are 301. Arterial line gases show pH 7.35 PCO2 40 and PO2 of 89. Chemistry shows sodium 148 potassium 3.0 chloride 119 CO2 23 BUN 58 crit and 1.26. Critical care, nephrology notes were reviewed. 08/19/2022: Patient remains in abated intensive care unit. She's been off sedation 48 hours but is not responding to family and only has reflexes noted. Remains mechanically ventilated. Staff reports large stools now and the need for fecal management system. He is now febrile at 101.4 axillary. Heart rate remains tachycardic in atrial fibrillation. Pulse oximetry is 92% on 40% FiO2. Labs today showed a B scan in 19 9, hemoglobin is 6.9, platelets 280. Blood gases are reviewed. Minimally hyponatremic and hypokalemic. BUN is 56, creatinine 1.1 on, GFR now 46. The kidney function continues to improve. They have packed red blood cells been ordered and pending. Consult recommendations were reviewed. She remains on the plan per critical care. 08/20/2022: Patient remains intubated in the intensive care unit. She remains off sedation. She is still unresponsive. She continues to be mechanically ventilated. She has been febrile for the past 24 hours with MAXIMUM TEMPERATURE of 103F. She reports increased use of pressors to control blood pressure. WBC count is increased in 26 6. Hemoglobin is 8.7. She received 1 unit of packed red blood cells yesterday. Blood gases are slightly worsened as is her kidney function today. Neurology was consulted and see the patient. Notes reviewed from critical care and surgery and cardiology. Patient remains on amiodarone, Elequis for atrial fibrillation. She remains on Z-Kimo, Eraxis now vancomycin for sepsis. 2. Has been stopped. She remains on NovoLog scale and detemir insulin area and her son and were at bedside. Case was discussed with him as well. PER [employer] FINISHER VERONA BARBA and DR PARIKH below 08/21/2022 remains vent dependent, FiO2 50%/+5 of PEEP. Maintained on high doses of levophed, vasopressin. Amiodarone and bicarb drips continue. Receiving IV albumin to be followed by Allison. Worsening renal function. Staff reports no urine output 24 hours. Bicarb 16, BUN 76, creatinine 1.73. Repeat CT of abdomen and pelvis completed yesterday, reporting moderate volume pneumoperitoneum, suspected perforation of distal colonic bowel, extensive distal bowel pneumatosis. Surgery discussed findings with family, high risk for surgical intervention. Family decided against surgical intervention,but to continue with nonsurgical care. T-max 100.6. Maintained on Zerbaxa, Eraxis,daptomycin .Seizure-like activity reported yesterday afternoon, placed on Keppra, reoccurred in the getter operator hours 2. Brain CT reported no acute intracranial process .EEG completed, results pending. 08/22/2022 vent dependent, 40% FiO2, +5 of PEEP. Staff reports patient desats quickly with turning. Chest x-ray reporting bibasilar atelectasis, consolidation, minimally increased, possible tiny right basilar pleural effusion. Continues on high doses of pressors, digits dusky. Maintained on bicarb drip. Telemetry atrial fibrillation, fast ventricular rate on amiodarone drip. Remains on antibiotics as per infectious disease.BUN 83, creatinine 1.79. T-max 102, WBC decreased, 16.5 08/23/2022 FiO2 50%/+5 of PEEP. Chest x-ray reported no significant change .Continues on pressor support. Maintained on amiodarone drip, heart rates currently in the 1 teens to 120s. Continues on daptomycin, Zerbexa and Eraxis.T-max 100.9, WBC 15.3. BUN 83, creatinine 2.13. WBC decreased to 15.3. Receiving IV albumin, Albumin currently 1.6. Ionized calcium 3.4, receiving supplementation. 08/24/2022 continues in A. fib, heart rates 110 to 130s on amiodarone drip. Seizure activity yesterday reported with facial twitching lasting approximately half an hour EEG performed-reported abnormal 2-1/2 hour EEG suggesting epileptiform focus involving midline occipital parietal region. Vimpat and Keppra doses increased. Continue to have seizure activity today, right-sided face twitching, trembling of arm reported, repeat EEG in progress. Versed drip initiated. Brain Ct pending. Maximized on both norepi and vasopressin. Digits dusky, declining comfort care at this time. Continues on bicarb drip. Remains vent dependent on FiO2 50%/+5 of PEEP. Now trach and PEG are being considered. 08/25/2022 maximized on pressors, levophed and vasopressin. Mechanical ventilator-dependent, FiO2 50%/+5 of PEEP. Chest x-ray reporting worsening bibasilar consolidation ,bilateral pneumonia. Family meeting via phone this morning with Dr. Hartman PCP, regarding poor prognosis, futile condition. Scheduled for tracheostomy and PEG-consent pending. Continues on amiodarone, bicarb drips. TPN. Continues to have seizure activity, on Versed drip, Dilantin added to med regimen. Afebrile, worsening WBC, 21.7, potassium 3, receiving supplementation. BUN 79, creatinine 1.87. Ionized calcium 3.4, supplemented. 08/28/2022 Remains vent dependent, FiO2 45%/+10 of PEEP status post tracheostomy 08/25. Nebulized bronchodilators, IV steroids. Receiving TPN/lipids. Requiring insulin drip for hyperglycemia, blood sugars currently ranging 160s to 170s.Ongoing seizures, continues on Versed drip, Dilantin, Keppra, Vimpat. EEG repeated yesterday, reported severely abnormal, suppression worsening-seen with severe anoxic or toxic metabolic encephalopathy, nonconvulsive generalized status epilepticus cannot be ruled out. Maintained on vasopressin, Levophed and Lasix drips. Antibiotics as per infectious disease. Afebrile, WBC 22.4. 08/29/2022 remains vent dependent, FiO2 45%/+10 of PEEP. Chest x-ray reporting bilateral infiltrates and pleural effusion, pneumonia versus CHF. PEG tube unable to be placed, please refer to the surgeon's note.Maintained on vasopressin, Levophed Lasix, Versed and Ativan drips. Repeat EEG pending. Continues on antibiotics of Eraxis, Zyvox and Zerbaxa. Afebrile, WBC 22.6. Hemoglobin 6.5, receiving one unit of packed RBCs. Platelets 255. 08/30/2022 remains vent dependent, FiO2 45%/+10 of PEEP. Chest x-ray reporting stable bilateral infiltrates and pleural effusion. Continues on TPN, Lasix drip, norepinephrine, vasopressin. Maintained on Eraxis, Zyvox and Zerbaxa. Afebrile, WBC 20.7. Ammonia 50.EEG yesterday -refer to neurology report.Versed and Ativan drips turned off, 2 hour EEG recently started. Received one unit of packed RBCs yesterday with current hemoglobin 8.1, platelets 221. Sodium decreased to 126. Bicarb 21, BUN 81, creatinine 1.62. Albumin 1.6. Nephrology discussing renal replacement therapy secondary to fluid volume overload if family continues with aggressive therapy. 08/31/22 continues on vasopressor support, antifungal/antibiotics, oral antiarrhythmics, TPN, IV steroids, nebulized bronchodilators, IV diuretics, seizure management including Versed and Ativan drips,lactulose, mechanical ventilation with FiO2 45% status post 10 of PEEP. Chest x-ray reporting potentially developing mild pulmonary vascular congestion, ongoing right greater than left bibasilar consolidation/atelectasis and small effusions. Maintained on Lasix drip, severe volume overload. Nephrology discussing potential SLED as requesting to continue with current aggressive treatment at this time. 09/01/2022 Tube feeds stopped as patient developed high residuals during the night, maintained on TPN. No clinical seizure activity reported. Neurology workup continues, EEG recently repeated, results pending. Remains vent dependent, FiO2 40%/+10 of PEEP, pressor dependent and on IV Lasix. BUN 86, creatinine 1.65. Continues on antibiotics/antifungal. Afebrile. Family undecided regarding SLED/renal replacement treatment option discussed as per nephrology. per DR Dobbs 09/02/2022: Patient remains with trach tube in place. There were never able to get a PEG tube. She remains off sedation since August 30. There's been no evidence of significant brain activity. EEG showed ongoing epileptiform activity. There is corneal reflexes per nursing. Her digits all remains cyanotic. Vent settings remain the same FiO2 40%, PEEP of 10. Heart rate ranges 90-100, respiratory rate is mechanically controlled, blood pressure stable this time. She continues on Zerbaxa, Eraxis, and Zyvox for antibiotic coverage. He remains on IV Lasix drip for significant edema. He continues on TPN and she was unable to tolerate NG tube feeds, she remains on detemir insulin 15 units daily along with insulin scale and she continues on Dilantin IV piggyback. She is a fecal management system and Hylton catheter in place. Critical care neurology and general surgery notes reviewed today. She has multiple ongoing medical problems and daily Coumadin anoxic encephalopathy probable viscus with pneumoperitoneum acute on chronic kidney disease, chronic hypoxic breast heart failure acute on chronic diastolic heart failure diabetes. The patient has been intubated since 08/10/2022 and has a trach since 08/25/2022 09/03/2022: Patient remains clinically ventilated through her tracheostomy. Once again PEG tube feelings have failed . she continues to be followed by critical care neurology, nephrology, infectious disease, general surgery No significant change her statusr in the past [address] PARIKH Sepsis, acute kidney injury, heart failure, on ventilator at 40% FiO2, on vasopressin and Levophed doses of both meds have been reduced, blood pressure is improved urinary output has improved, need TPN Noted the patient trached patient started on phenytoin secondary to possible seizure activities noted on EEG,end of life care discussed at length with patient's daughter and is currently no CPR otherwise they want to continue current care however there has been explained that there is been no or little improvement in her status Patient presented to the hospital on 08/08/2022 secondary to shortness of breath hypotension patient had syncopal episode on the toilet, was recently discharged from rehab facility, brought in by EMS, was admitted to the stepdown unit, and subsequently transferred to the intensive care unit where she was placed on BiPAP secondary to severe acidosis and was intubated and placed on pressors , despite multiple boluses of normal saline despite receiving IV Lasix. This patient has a long-standing history of diabetes hypertension 09/07/2022 patient currently intubated and sedated, etiology for current state includes sepsis fungemia urinary sepsis urine cultures growing Pseudomonas and enterococcus and acute tubular necrosis the kidneys marisel, and left lower lobe pneumonia Patient is currently maintained on pressors including Levophed and vasopressin being reduced, trached, no recent change in status 09/08/2022 patient currently intubated, limited response and state includes sepsis fungemia cultures have grown Pseudomonas and enterococcus acute kidney injury kidneys are stable at this time observe left lower lobe pneumonia patient is currently maintained on pressures including Levophed and vasopressin she is trached no change in recent status 09/10/2022 Patient continues to be unresponsive on the vent patient is now requiring higher doses of pressors ongoing, thrombocytopenia progressing Diffuse edema at all 4 extremes Bun, Is up to 112 and creatinine of 1.1, rhythm is atrial fibrillation, no anticoagulants, and Zyvox notes Per Dr Hartman September 04 through September 11. September 12 I was contacted by nursing her for me that she required more and more blood pressure medication's and then At approximately 12:04 PM Plan - Discharge Summary Discharge Rx Participant: No New Discharge Prescriptions: Discontinued Nitroglycerin Sl Tabs [Nitrostat] 0.4 mg SL Q5M PRN PRN Reason: Chest Pain Atorvastatin Calcium [Lipitor] 40 mg PO HS #1 tab Fluticasone/Umeclidin/Vilanter [Trelegy Ellipta 100-62.5-25] 1 puff INHALATION RT-HS Amitriptyline HCl [Elavil] 100 mg PO HS Furosemide [Lasix] 40 mg PO DAILY tab Metoprolol Tartrate [Lopressor] 25 mg PO BID tab Amiodarone [Cordarone] 200 mg PO DAILY #90 tab HYDROcodone/APAP 5-325MG [Bedford 5-325] 1 tab PO Q6H PRN PRN Reason: Pain Ipratropium-Albuterol Nebulize [Duoneb 0.5 mg-3 mg/3 ml Soln] 3 ml INHALATION RT-QID Docusate [Colace] 100 mg PO BID Apixaban [Eliquis] 2.5 mg PO BID Cyanocobalamin (Vitamin B-12) [Vitamin B-12] 1,000 mcg PO DAILY Gabapentin 300 mg PO TID #9 cap Insulin Lispro [humaLOG Kwikpen] See Protocol SQ ACHS PRN PRN Reason: Blood Sugar - High metFORMIN HCL 1,000 mg PO BID Tamsulosin [Flomax] 0.4 mg PO DAILY Levothyroxine Sodium [Synthroid] 75 mcg PO DAILY Psyllium Husk 100% [Metamucil Packet] 6 gm PO DAILY Calcium Carbonate [Tums] 1,000 mg PO Q6H PRN PRN Reason: Heartburn Discharge Disposition: - Preliminary Cause of Preliminary Cause of : cardiac arrest
[2022-09-11 18:19] LABS: HIV 2 AB Non-Reactive (Non-Reactive); HIV AB P24 Non-Reactive (Non-Reactive); HIV P24 AG Non-Reactive (Non-Reactive)
== END 2022-09-11 14:22 | disposition expired | DRG 4 ==
LOC: EC 12:44 → 3SCARD 19:25 → 2SICU 08-10 01:27
PROVIDERS: ADMIT Family Medicine; ATTEND Family Medicine
PROC: 0D9670Z Drainage of Stomach with Drainage Device, Via Natural or Artificial Opening (ICD-10-PCS; 2022-08-08)
PROC: 5A1955Z Respiratory Ventilation, Greater than 96 Consecutive Hours (ICD-10-PCS; 2022-08-10)
PROC: 02HV33Z Insertion of Infusion Device into Superior Vena Cava, Percutaneous Approach (ICD-10-PCS; 2022-08-10)
PROC: 3E043XZ Introduction of Vasopressor into Central Vein, Percutaneous Approach (ICD-10-PCS; 2022-08-10)
PROC: 04HY32Z Insertion of Monitoring Device into Lower Artery, Percutaneous Approach (ICD-10-PCS; 2022-08-10)
PROC: 4A133B1 Monitoring of Arterial Pressure, Peripheral, Percutaneous Approach (ICD-10-PCS; 2022-08-10)
PROC: 4A133J1 Monitoring of Arterial Pulse, Peripheral, Percutaneous Approach (ICD-10-PCS; 2022-08-10)
PROC: 0BH18EZ Insertion of Endotracheal Airway into Trachea, Via Natural or Artificial Opening Endoscopic (ICD-10-PCS; 2022-08-10)
PROC: 5A09357 Assistance with Respiratory Ventilation, Less than 24 Consecutive Hours, Continuous Positive Airway Pressure (ICD-10-PCS; principal; 2022-08-13)
PROC: 3E0436Z Introduction of Nutritional Substance into Central Vein, Percutaneous Approach (ICD-10-PCS; 2022-08-14)
PROC: 30233N1 Transfusion of Nonautologous Red Blood Cells into Peripheral Vein, Percutaneous Approach (ICD-10-PCS; 2022-08-19)
PROC: 0B110F4 Bypass Trachea to Cutaneous with Tracheostomy Device, Open Approach (ICD-10-PCS; 2022-08-25)
PROC: 0DH63UZ Insertion of Feeding Device into Stomach, Percutaneous Approach (ICD-10-PCS; 2022-08-28)
PROC: 3E0G76Z Introduction of Nutritional Substance into Upper GI, Via Natural or Artificial Opening (ICD-10-PCS; 2022-08-28)
PROC: XW03396 Introduction of Ceftolozane/Tazobactam Anti-infective into Peripheral Vein, Percutaneous Approach, New Technology Group 6 (ICD-10-PCS; 2022-09-08)
PROC: 30233R1 Transfusion of Nonautologous Platelets into Peripheral Vein, Percutaneous Approach (ICD-10-PCS; 2022-09-10)
PROC: 6A550Z2 Pheresis of Platelets, Single (ICD-10-PCS; 2022-09-11)
DX: A41.81 Sepsis due to Enterococcus (principal); L89.623 Pressure ulcer of left heel, stage 3; R65.21 Severe sepsis with septic shock; N17.0 Acute kidney failure with tubular necrosis; K63.1 Perforation of intestine (nontraumatic); K65.1 Peritoneal abscess; K56.2 Volvulus; I50.33 Acute on chronic diastolic (congestive) heart failure; G92.8 Other toxic encephalopathy; E43 Unspecified severe protein-calorie malnutrition; J18.9 Pneumonia, unspecified organism; J96.21 Acute and chronic respiratory failure with hypoxia; G93.1 Anoxic brain damage, not elsewhere classified; E87.3 Alkalosis; E87.0 Hyperosmolality and hypernatremia; I96 Gangrene, not elsewhere classified; I13.0 Hypertensive heart and chronic kidney disease with heart failure and stage 1 through stage 4 chronic kidney disease, or unspecified chronic kidney disease; E87.20 Acidosis, unspecified; Z68.43 Body mass index [BMI] 50.0-59.9, adult; K56.7 Ileus, unspecified; J44.0 Chronic obstructive pulmonary disease with (acute) lower respiratory infection; E87.1 Hypo-osmolality and hyponatremia; Z99.11 Dependence on respirator [ventilator] status; I48.19 Other persistent atrial fibrillation; J44.1 Chronic obstructive pulmonary disease with (acute) exacerbation; N39.0 Urinary tract infection, site not specified; Z16.24 Resistance to multiple antibiotics; Z16.21 Resistance to vancomycin; Z66 Do not resuscitate; G40.901 Epilepsy, unspecified, not intractable, with status epilepticus; K76.82 Hepatic encephalopathy; K66.8 Other specified disorders of peritoneum; L89.152 Pressure ulcer of sacral region, stage 2; D63.1 Anemia in chronic kidney disease; E11.42 Type 2 diabetes mellitus with diabetic polyneuropathy; E11.22 Type 2 diabetes mellitus with diabetic chronic kidney disease; Z99.81 Dependence on supplemental oxygen; D69.59 Other secondary thrombocytopenia; N18.30 Chronic kidney disease, stage 3 unspecified; E03.9 Hypothyroidism, unspecified; E66.01 Morbid (severe) obesity due to excess calories; I35.0 Nonrheumatic aortic (valve) stenosis; B37.7 Candidal sepsis; G31.9 Degenerative disease of nervous system, unspecified; E87.6 Hypokalemia; E87.5 Hyperkalemia; E78.5 Hyperlipidemia, unspecified; B96.5 Pseudomonas (aeruginosa) (mallei) (pseudomallei) as the cause of diseases classified elsewhere; R01.1 Cardiac murmur, unspecified; G47.33 Obstructive sleep apnea (adult) (pediatric); R23.0 Cyanosis; D64.89 Other specified anemias; B95.62 Methicillin resistant Staphylococcus aureus infection as the cause of diseases classified elsewhere; D27.0 Benign neoplasm of right ovary; K31.89 Other diseases of stomach and duodenum; R26.9 Unspecified abnormalities of gait and mobility; I49.9 Cardiac arrhythmia, unspecified; K63.89 Other specified diseases of intestine; I46.9 Cardiac arrest, cause unspecified; G89.29 Other chronic pain; M54.42 Lumbago with sciatica, left side; M54.41 Lumbago with sciatica, right side; S80.829A Blister (nonthermal), unspecified lower leg, initial encounter; E55.9 Vitamin D deficiency, unspecified; T50.915A Adverse effect of multiple unspecified drugs, medicaments and biological substances, initial encounter; R29.6 Repeated falls; I25.10 Atherosclerotic heart disease of native coronary artery without angina pectoris; Z20.822 Contact with and (suspected) exposure to COVID-19; Z96.653 Presence of artificial knee joint, bilateral; Z87.891 Personal history of nicotine dependence; Z98.1 Arthrodesis status; Z95.5 Presence of coronary angioplasty implant and graft; Z79.4 Long term (current) use of insulin; I25.2 Old myocardial infarction; Z88.0 Allergy status to penicillin; Z79.899 Other long term (current) drug therapy; Z79.84 Long term (current) use of oral hypoglycemic drugs; Z79.890 Hormone replacement therapy; Z79.51 Long term (current) use of inhaled steroids; Z79.01 Long term (current) use of anticoagulants; Z87.440 Personal history of urinary (tract) infections; Z86.16 Personal history of COVID-19; Z86.73 Personal history of transient ischemic attack (TIA), and cerebral infarction without residual deficits; Z99.3 Dependence on wheelchair; Z87.19 Personal history of other diseases of the digestive system; Z91.81 History of falling; Z79.891 Long term (current) use of opiate analgesic
CPT/HCPCS: 36410; 36415; 36600; 43235; 70450; 71045; 71275; 74018; 74176; 74177; 76937; 80048; 80053; 80074; 80177; 80185; 80202; 81001; 82040; 82140; 82306; 82330; 82525; 82533; 82607; 82728; 82746; 82805; 83036; 83540; 83550; 83605; 83735; 83880; 84100; 84132; 84145; 84443; 84478; 84484; 85025; 85027; 85379; 85384; 85610; 85730; 86140; 86850; 86900; 86901; 86920; 87040; 87045; 87046; 87070; 87077; 87086; 87186; 87205; 87324; 87390; 87636; 93005; 94002; 94003; 94640; 94660; 94760; 95713; 95816; 95822; 96361; 96365; 96366; 96375; 96376; 99285